=== PATIENT | female | born 1965 | race Caucasian/White ===

== ENCOUNTER 2017-07-06 09:27 | Emergency (ER) | payer MEDICARE, SELFPAY ==
[2017-07-06 09:29] VITALS: BP 162/92; PULSE 90; RESP 16; TEMP 36.8; O2SAT 100; BMI 30.4
[2017-07-06 10:08] LABS: Absolute Lymphocyte Count 1.74 X10^3/ul (0.83-4.51); Absolute Neutrophil Count 2.7 X10^3/uL (2.0-7.7); Basophil# 0.03 X10^3/uL; Basophil% 0.6 % (0-1); Eosinophil# 0.23 X10^3/uL; Eosinophils% 4.6 % (0-5); Hematocrit 32.4 % (37-47); Hemoglobin 10.5 g/dl (12.0-15.0); Lymphocyte # 1.74 X10^3/ul (4.0); Lymphocyte % 34.8 % (19-41); Mean Corp Hgb Conc 32.4 g/gl (32-36); Mean Corpuscular Hgb 29.8 pg (27.0-32.0); Mean Platelet Vol. 8.8 fl (6.2-12.0); Monocyte# 0.33 X10^3/uL; Monocyte% 6.6 % (0-10); Neutrophil # 2.67 X10^3/uL (2.7-7.7); Neutrophil % 53.4 % (47-70); Platelet Count 233 K/mm3 (150-450); RBC Distribution Width CV 13.3 % (11.6-14.6); RBC Distribution Width SD 44.4 fl (35.1-43.9); Red Blood Count 3.52 M/mm3 (4.2-5.4)
[2017-07-06 10:09] LABS: Anion Gap 7 (5-15); BUN 27 mg/dL (7-18); BUN/Creat Ratio 10.7 RATIO (10-20); Calcium,Total 8.7 mg/dL (8.5-10.1); Chloride 111 mmol/L (98-107); Creatinine, Serum 2.52 mg/dL (0.55-1.02); EST Glomerular Filtration Rate 21 mL/min (>60); Est Glom Filt Rate - Afr Amer 26 mL/min (>60); Estimated Creatinine Clearance 26.34 ml/min; Glucose 111 mg/dL (74-106); Potassium 4.6 mmol/L (3.5-5.1); Sodium Level 142 mmol/L (136-145)
--- NOTE | 2017-07-06 10:14 | US_ITS ---
STUDY: RENAL ULTRASOUND - COMPLETE REASON FOR EXAM: Female, 52 years old. Acute renal failure TECHNIQUE: Ultrasound evaluation of the kidneys was performed with real-time and static ramos-scale imaging. COMPARISON: None. FINDINGS: RIGHT KIDNEY: Normal location of the right kidney, which is normal in size. The right kidney measures 10.3 cm. There is a normal cortex of the right kidney. The renal cortex measures 1.3 cm. There is no right renal mass or cyst. There are no right renal calculi. There is no right hydronephrosis. DISTAL RIGHT URETER: There is non-visualization of the distal right ureter. There is no demonstrated right ureterovesical junction calculus. There is a visualized right ureteral jet. LEFT KIDNEY: Normal location of the left kidney, which is normal in size. The left kidney measures 10 cm. There is a normal cortex of the left kidney. The renal cortex measures 1.5 cm. There is no left renal mass or cyst. There are no left renal calculi. There is no left hydronephrosis. DISTAL LEFT URETER: There is non-visualization of the distal left ureter. There is no demonstrated left ureterovesical junction calculus. There is a visualized left ureteral jet. BLADDER: The distended urinary bladder has a volume of 393 ml. There is a normal wall thickness of the distended urinary bladder. There is no demonstrated mass within the urinary bladder. There are no demonstrated bladder calculi. Please note that the technologist describes weaker left ureteral jet than right. US/Kidney and Bladder IMPRESSION: Normal ultrasound of the kidneys and urinary bladder. Please note that the technologist describes weaker left ureteral jet than right. Electronically Signed: Eliud Hicks DO at 11:49 EDT Tel , Service support ,
[2017-07-06 10:16] LABS: POSITIVE COUNT NO; POSITIVE DIFFERENTIAL NO; POSITIVE MORPHOLOGY NO
--- NOTE | 2017-07-06 10:59 | ED.DCSUM_ITS ---
- ER Visit Summary Date of Service: 07/06/17 Chief Complaint: Abnormal labs History of Present Illness: The patient is a 52 F who has abnormal labs. She had blood work done last which showed kidney failure. Patient has a history of chronic kidney disease. She does not know what her baseline creatinine is. She has had vomiting and some slight leg cramps. She now has leg swelling which is what brought her in today. She states that they wanted to do an ultrasound of her kidneys as an outpatient but since her labs came back abnormal they sent her here. No fevers. Physical Examination: Vital signs reviewed. HEENT exam unremarkable. Heart is regular rate and rhythm without murmurs. Lungs are clear to auscultation. Abdomen is soft and nontender. Extremities reveal no edema. Skin exam normal. Neurologic exam normal. Test Results: Laboratory studies show a creatinine of 2.52. The patient's baseline is between 1.6 and 1.8. It was to the last time it was checked at this hospital in 2017 Emergency Department Course and Treatment: I received the lab studies from her PCP last week. This showed a creatinine of 2.2. Patient was given some normal saline. I did obtain bilateral kidney ultrasound and it shows no acute abnormalities. I spoke with her PCP, Dr. Archibald. He says he will see the patient is office and we both feel the patient does not require admission. Treatment Plan: [] Disposition: Discharge Impression: Chronic kidney disease This note was generated with [employer] dictation software. It may contain incorrect words, spelling, and punctuation that were not noted in review of the chart prior to signing ED Disposition - Plan for ED Patient: Chief Complaint: Abn Labs Referrals: Aki Archibald MD [Primary Care Provider] -
[2017-07-06 11:36] VITALS: BP 134/77; PULSE 84; RESP 16; O2SAT 98
[2017-07-06] MEDS: 0.9% Normal Saline 1,000 ML 999 ML IV (11:45)
--- NOTE | 2017-07-06 11:57 | NURSING ---
PAGED DR CHEATHAM
[2017-07-06 12:30] LABS: Bedside Glucose 48 mg/dL (70-110)
--- NOTE | 2017-07-06 12:31 | ED.DEP ---
ED Disposition - Plan for ED Patient: Disposition: Home or Assisted Living Chief Complaint: Abn Labs Instructions: ED Renal Failure Chronic Referrals: Aki Archibald MD [Primary Care Provider] -
[2017-07-06 12:38] VITALS: BP 134/82; PULSE 76; RESP 15; O2SAT 96
== END 2017-07-06 12:39 | disposition home or self-care (01) ==
PROVIDERS: Emergency Provider Emergency Medicine; Family Provider Family Medicine; PCP Family Medicine
DX: N18.9 Chronic kidney disease, unspecified (principal); I12.9 Hypertensive chronic kidney disease with stage 1 through stage 4 chronic kidney disease, or unspecified chronic kidney disease; E78.00 Pure hypercholesterolemia, unspecified; E11.9 Type 2 diabetes mellitus without complications; K21.9 Gastro-esophageal reflux disease without esophagitis; M79.7 Fibromyalgia; Z86.718 Personal history of other venous thrombosis and embolism
CPT/HCPCS: 76770; 80048; 82962; 85025; 99283; J7030

== ENCOUNTER 2017-11-12 17:01 | Emergency (ER) | payer MEDICARE, SELFPAY ==
[2017-11-12 17:02] VITALS: BP 170/86; PULSE 92; RESP 15; TEMP 36.4; O2SAT 99; BMI 30.4
--- NOTE | 2017-11-12 17:22 | ED.VISSUMM ---
- ER Visit Summary Date of Service: 11/12/17 Chief Complaint: Dysuria, left leg pain History of Present Illness: The patient is a 52 F who presents with dysuria as well as left leg pain. The leg pain started last night at work. She points to her proximal anterior tibial and knee area. Denies any falls or trauma. She tried Tylenol without any relief. She does have a history of a left leg fracture with surgery. She had dysuria that started yesterday. She also complains of bladder spasms. She states that she thinks it is a flare of her fibromyalgia. She tried methocarbamol at home without any relief Physical Examination: Vital signs reviewed. He is regular rate and rhythm. Lungs are clear. Abdomen is soft nontender. exam is deferred. She has tenderness on the left anterior and medial knee as well as popliteal pain. No swelling. Neurologic exam is normal. Test Results: Ultrasound of the left leg and x-ray of the left knee reveals no acute findings. Urinalysis reveals only 5-10 white blood cells with 0-5 epithelial cells Emergency Department Course and Treatment: The patient's urine will be cultured. She was given Tylenol here. Patient will be discharged with Pyridium per request. She will use ice and Tylenol at home. She will follow-up with her PCP Treatment Plan: [] Disposition: Discharge Impression: Dysuria, left leg pain This note was generated with [employer] dictation software. It may contain incorrect words, spelling, and punctuation that were not noted in review of the chart prior to signing ED Disposition - Plan for ED Patient: Chief Complaint: Complaint Referrals: Aki Archibald MD [Primary Care Provider] -
[2017-11-12 17:37] LABS: Bacteria 0 SEEN /hpf (None Seen); Mucous, Urine 0 SEEN /hpf (<or=2+)
--- NOTE | 2017-11-12 17:38 | US_ITS ---
STUDY: VENOUS DOPPLER ULTRASOUND - LEFT LOWER EXTREMITY REASON FOR EXAM: Female, 52 years old. Swelling TECHNIQUE: Ultrasound evaluation of the deep vein system to include waters-scale imaging and compression was performed. Waters-scale imaging and Doppler sonographic evaluation, including duplex spectral analysis and qualitative color flow sonography, was performed. COMPARISON: None. FINDINGS: Common Femoral Vein: Normal compression, spontaneity and augmentation. Normal color Doppler. Common Femoral Vein/Greater Saphenous Junction: Normal compression, spontaneity and augmentation. Normal color Doppler. Deep Femoral Vein: Normal compression, spontaneity and augmentation. Normal color Doppler. Femoral Proximal: Normal compression, spontaneity and augmentation. Normal color Doppler. Femoral Middle: Normal compression, spontaneity and augmentation. Normal color Doppler. Femoral Distal: Normal compression, spontaneity and augmentation. Normal color Doppler. Popliteal Vein: Normal compression, spontaneity and augmentation. Normal color Doppler. Posterior Tibial Vein: Normal compression, spontaneity and augmentation. Normal color Doppler. Peroneal Vein: Normal compression, spontaneity and augmentation. Normal color Doppler. US/Venous Duplex Imag/Limited/Uni IMPRESSION: Normal venous Doppler ultrasound of the lower extremity. Electronically Signed: Sha Rahman MD at 18:20 EDT , Service support ,
--- NOTE | 2017-11-12 17:40 | RAD_ITS ---
STUDY: X-RAY - LEFT KNEE REASON FOR EXAM: Female, 52 years old. Knee pain. TECHNIQUE: 3 view(s) of the knee. COMPARISON: None. FINDINGS: Normal visualized distal femur. Normal visualized proximal tibia and fibula. Normal proximal tibiofibular articulation. There is no demonstrated fracture. There is moderate degenerative arthrosis of the medial femorotibial compartment with moderate joint space narrowing. There is mild degenerative arthrosis of the lateral femorotibial compartment. There is moderate degenerative arthrosis of the patellofemoral articulation. There is no demonstrated joint effusion. Tibia is subluxed laterally relative to the femur. There are atherosclerotic calcifications. RAD/Knee 3 Views IMPRESSION: Degenerative changes. No acute fracture or dislocation. Electronically Signed: Jorgito Piper MD at 18:08 EDT , Service support ,
[2017-11-12 17:47] LABS: Color, Urine Yellow (Yellow); Glucose, Dipstick 100 mg/dl (Normal); Ketone-Dipstick Negative (Negative); Leukocyte Esterase-Dipstick 100 /ul (Negative); Nitrite-Dipstick Negative (Negative); Occult Blood-Urine 10 /ul (Negative); Protein-Dipstick 30 mg/dl (Negative); Specific Gravity, Urine 1.015 (1.002-1.030); Urine Bilirubin Dipstick Negative (Negative); Urine Clarity Sl. Cloudy (Clear); Urine Urobilinogen Normal (Normal)
[2017-11-12 17:58] LABS: Red Blood Cells-Urine 0-5 SEEN /hpf (0-5); Squamous Epithelial Cells - UA 0-5 SEEN /hpf (5-10); White Blood Cells 5-10 SEEN /hpf (0-5)
[2017-11-12] MEDS: Acetaminophen 500 MG Tablet 1000 MG PO (18:18)
--- NOTE | 2017-11-12 18:28 | ED.DEP ---
ED Disposition - Plan for ED Patient: Disposition: Home or Assisted Living Chief Complaint: Complaint Instructions: ED Dysuria Uncertain Cause Prescriptions: Phenazopyridine HCl [Pyridium] 200 mg PO BID PRN PRN #10 tab PRN Reason: Pain Referrals: Aki Archibald MD [Primary Care Provider] -
[2017-11-12 18:31] VITALS: BP 176/91; PULSE 82; RESP 17; O2SAT 100
== END 2017-11-12 18:35 | disposition home or self-care (01) ==
PROVIDERS: Emergency Provider Emergency Medicine; Family Provider Family Medicine; PCP Family Medicine
DX: M79.605 Pain in left leg (principal); R30.0 Dysuria; R11.0 Nausea; M79.7 Fibromyalgia; Z79.82 Long term (current) use of aspirin; Z79.899 Other long term (current) drug therapy; Z72.0 Tobacco use
CPT/HCPCS: 73562; 81001; 87086; 87088; 93971; 99283

== ENCOUNTER 2018-03-26 17:34 | Emergency (ER) | payer SELFPAY ==
[2018-03-26 17:35] VITALS: BP 147/70; PULSE 86; RESP 15; TEMP 36.4; O2SAT 100; BMI 32.5
--- NOTE | 2018-03-26 17:44 | RAD_ITS ---
STUDY: X-RAY - RIGHT KNEE REASON FOR EXAM: Female, 52 years old. Fall TECHNIQUE: 5 view(s) of the knee. COMPARISON: None. FINDINGS: There is no evidence of fracture or dislocation. There are mild degenerative changes. There is a small joint effusion. There are no radiodense foreign bodies. RAD/Knee 4 or More Views IMPRESSION: No fracture or dislocation. Mild degenerative changes. Small joint effusion. Electronically Signed: Deshawn Galeana, at 18:25 EST Tel , Service support ,
--- NOTE | 2018-03-26 17:51 | ED.VISSUMM ---
- ER Visit Summary Date of Service: 03/26/18 Chief Complaint: Fall History of Present Illness: The patient is a 52 F presents to the emergency department after mechanical fall. Patient states she got up this morning. She was having some spasm in her legs but she states is not atypical for her. She states her legs gave out. She fell, landing on her right knee and right hand. She did not strike her head. She denies loss of consciousness. She was able to ambulate after and went to work. She states at work, the pain was getting worse. She does have a history of fibromyalgia. She normally ambulates without assistance. Physical Examination: Examination is relatively unremarkable. Patient has a small abrasion on the hand. Examination of the knee shows extension preserved, no erythema or edema. Small contusion. No gross laxity. Pulses normal. Compartments soft. Test Results: [] Emergency Department Course and Treatment: Plain films were obtained of the patient's knee in the hand. There is no evidence of acute fracture dislocation. Her extension is preserved. At this time, I do feel this is likely secondary to contusion. Patient was placed in an Ronald wrap. She will continue ice and Tylenol. She declined crutches. She states she does have a walker at home. She was counseled on concerning symptoms and reasons to return. She will be discharged home. Treatment Plan: [] Disposition: Discharge Impression: 1. Right knee contusion status post fall 2. Right hand abrasion status post fall This note was generated with [employer] dictation software. It may contain incorrect words, spelling, and punctuation that were not noted in review of the chart prior to signing ED Disposition - Plan for ED Patient: Chief Complaint: Lower Extremity Injury Instructions: ED Sprain Knee Referrals: Aki Archibald MD [Primary Care Provider] -
--- NOTE | 2018-03-26 17:55 | RAD_ITS ---
STUDY: X-RAY - RIGHT HAND REASON FOR EXAM: Female, 52 years old. Fall. Fifth digit pain. TECHNIQUE: 3 view(s) of the hand. COMPARISON: None. FINDINGS: There is no evidence of fracture or dislocation. There are no significant degenerative changes. There are no radiodense foreign bodies. RAD/Hand Min 3 Views IMPRESSION: No fracture or dislocation. Electronically Signed: Deshawn Galeana, at 18:23 EST Tel , Service support ,
[2018-03-26] MEDS: Acetaminophen 500 MG Tablet 1000 MG PO (18:15)
== END 2018-03-26 19:07 | disposition home or self-care (01) ==
LOC: ED 18:54
PROVIDERS: Emergency Provider Emergency Medicine; Family Provider Family Medicine; PCP Family Medicine
DX: S80.01XA Contusion of right knee, initial encounter (principal); S60.511A Abrasion of right hand, initial encounter; W01.0XXA Fall on same level from slipping, tripping and stumbling without subsequent striking against object, initial encounter; Y93.9 Activity, unspecified; Y92.89 Other specified places as the place of occurrence of the external cause; Y99.9 Unspecified external cause status; M79.7 Fibromyalgia
CPT/HCPCS: 73130; 73564; 99283

== ENCOUNTER → 2018-07-05 15:15 | Outpatient (CLI) | payer SELFPAY ==
--- NOTE | 2018-07-05 15:21 | VDUE_ITS ---
Reason For Study: Pain LUE Left Proximal Left jugular vein is spontaneous, widely patent, phasic, with no intraluminal echogenicity noted. Left subclavian vein is spontaneous, widely patent, phasic, with no intraluminal echogenicity noted. Left Arm Left axillary vein is spontaneous, patent, phasic, competent, compressible and demonstrates augmentation. Left brachial vein is compressible. Left cephalic vein is compressible. Left basilic vein is compressible. Left Lower Arm Left radial vein is compressible. Left ulnar vein is compressible. Interpretation Summary Deep veins of the left upper extremity are patent and compressible segmentally. There is no evidence of deep vein thrombosis. The superficial veins of the left upper extremity, the basilic and cephalic veins, are patent and compressible. There is no evidence of left upper extremity superficial thrombophlebitis involving the veins imaged. Ordering Physician: Aki Archibald Referring Physician: Aki Archibald Performed By: Jacy Tim RVT ?
--- NOTE | 2018-07-05 15:22 | VDLE_ITS ---
Reason For Study: Pain LLE RIGHT LEFT CFV is compressible, spontaneous, phasic, GSV is normal. competent and demonstrates normal CFV is compressible, spontaneous, phasic, augmentation. competent, and demonstrates normal Procedure augmentation. Exam performed in department. FV is compressible, spontaneous, phasic, A preliminary report was called and/or faxed competent and demonstrates normal to [place]. augmentation. POP V is compressible, spontaneous, phasic, competent and demonstrates normal augmentation. T/P Trunk is compressible. PTV is compressible. LT PerV is compressible. Interpretation Summary Deep veins of the left lower extremity are patent and compressible segmentally. There is no evidence of left lower extremity deep vein thrombosis. Valvular competence appears intact within the proximal deep venous system on the left . The left greater saphenous vein appears patent and compressible segmentally. Ordering Physician: Aki Archibald Referring Physician: Aki Archibald Performed By: Jacy Tim RVT
== END ==
PROVIDERS: Family Provider Family Medicine; PCP Family Medicine; Referring Provider Family Medicine; Visit Provider Family Medicine
DX: D68.59 Other primary thrombophilia (principal); M79.605 Pain in left leg; Z86.718 Personal history of other venous thrombosis and embolism
CPT/HCPCS: 93971

== ENCOUNTER 2019-07-04 19:51 | Emergency (ER) | payer OTHER, SELFPAY ==
[2019-07-04 19:52] VITALS: BP 175/91; PULSE 79; RESP 18; TEMP 36.9; O2SAT 96; BMI 29.5
[2019-07-04] MEDS: traMADol 50 MG Tablet PO (20:20)
[2019-07-04 20:27] LABS: Bacteria 0 SEEN /hpf (None Seen); Mucous, Urine 0 SEEN /hpf (<or=2+); Red Blood Cells-Urine 0 SEEN /hpf (0-5)
[2019-07-04 20:28] LABS: Glucose, Dipstick 250 mg/dl (Normal); Ketone-Dipstick Negative (Negative); Leukocyte Esterase-Dipstick 500 /ul (Negative); Nitrite-Dipstick Negative (Negative); Occult Blood-Urine Negative /ul (Negative); Protein-Dipstick 30 mg/dl (Negative); Specific Gravity, Urine 1.015 (1.002-1.030); Urine Bilirubin Dipstick Negative (Negative); Urine Urobilinogen Normal (Normal)
[2019-07-04 20:34] LABS: Color, Urine Yellow (Yellow); Urine Clarity Sl Cldy (Clear)
[2019-07-04 20:37] LABS: Amorphous Sediment 1+ URATE; Squamous Epithelial Cells - UA 0-5 SEEN /hpf (5-10); White Blood Cells 5-10 SEEN /hpf (0-5)
--- NOTE | 2019-07-04 21:05 | RAD_ITS ---
STUDY: X-RAY - UNILATERAL RIBS ( LEFT ) REASON FOR EXAM: Female, 54 years old. LOWER RIB PAIN AFTER FALL. TECHNIQUE: 4 view(s) of the ribs. COMPARISON: None. FINDINGS: Normal visualized ribs without a demonstrated fracture. The visualized lung is clear and expanded. Surgical clips are seen in left upper quadrant of the abdomen RAD/Ribs Unil 2V No CXR IMPRESSION: Normal x-ray examination of the ribs. Electronically Signed: Sha Rahman MD at 21:29 EDT , Service support ,
--- NOTE | 2019-07-04 21:24 | ED.DCSUM_ITS ---
History of Present Illness Chief Complaint: Back Informant: Patient Onset: Today - JPTA Context: Sudden Onset Injury: Direct Trauma Timing: Continuous Quality: Aching Location: Lumbar Current Severity: Severe Maximum Severity: Severe Worsened by: improves with: Movement, Bending Relieved by: Remaining Still Associated Symptoms: - - No radiation into lower extremity. No bowel or bladder dysfunction. No numbness or tingling. Has not yet urinated since this occurred. 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 She states since I have stage IV kidney failure, I decided to come and have it checked out. She has not urinated since this occurred, she does not usually have hematuria and she does urinate. She is not on dialysis. She has no abdominal pain, neurologic symptoms in her lower extremities or saddle anesthesia, or pain in the midline or the right side. - Past Medical History (1) Kidney disease, chronic, stage IV (GFR 15-29 ml/min) Status: Chronic (2) Benign essential hypertension Status: Chronic (3) History of COPD Status: Chronic (4) History of asthma Status: Chronic (5) History of bipolar disorder Status: Chronic (6) History of diabetes mellitus, type II Status: Chronic Past Medical History - Allergies and Home Meds Allergies/Adverse Reactions: Allergies Penicillins Allergy (Verified 07/04/19 19:52) Anaphylaxis tetracycline [Tetracycline] Allergy (Verified 07/04/19 19:52) Anaphylaxis codeine Adverse Reaction (Verified 07/04/19 19:52) Abd cramps/diarrhea diphenhydramine HCl [From Benadryl] Adverse Reaction (Verified 07/04/19 19:52) Upset Stomach hydrocodone bitartrate [From Vicodin] Adverse Reaction (Verified 07/04/19 19:52) Abd cramps/diarrhea NSAIDS (Non-Steroidal Anti-Inflamma Adverse Reaction (Verified 07/04/19 19:52) Unknown Primary Care Physician: Aki Archibald MD [Primary Care Provider] - Surgical History: appendectomy Smoking Status: Former smoker Review of Systems Gastrointestinal: Denies: Abdominal pain, Nausea, Vomiting Musculoskeletal: Reports: Back pain. Denies: Swelling, Extremity Pain Skin: Denies: Rash, Wounds Neurological: Denies: Headache, Weakness, Parasthesia, Numbness Physical Exam Vital Signs/Narrative: Vital Signs Temp Pulse Resp BP Pulse Ox 07/04/19 19:52 98.5 F 79 18 175/91 H 96 Inital Vital Signs reviewed: Yes General: Well nourished, Well developed, - - Well-appearing, no distress. Conversive without distress or apparent pain. Head: Normocephalic, Atraumatic Back: Normal Inspection - No objective signs of trauma, Paraspinal Tenderness - Throughout left lower thoracic and upper lumbar area, including the lower ribs. No crepitance. No ecchymosis. No laceration., - - Can bend forward and twist w ithout any apparent difficulty. Negative for: Spinal tenderness - Throughout the midline, nontender Extremeties: Nontender, No edema Skin: Normal color, No rash, No Trauma Neuro: Alert, Oriented, Normal Strength, Normal Sensation, Normal Gait Psychological: Normal affect, Normal Mood Diagnostic/Tx/Re-eval Laboratory Tests 07/04/19 Range/Units 20:23 Urine Color Yellow (Yellow) Urine Clarity Sl Cldy (Clear) Urine pH 6.0 (5.0 - 8.0) Ur Specific [place] 1.015 (1.002-1.030) Urine Protein 30 H (Negative) mg/dl Urine Glucose (UA) 250 H (Normal) mg/dl Urine Ketones Negative (Negative) mg/dl Urine Occult Blood Negative (Negative) /ul Urine Nitrite Negative (Negative) Urine Bilirubin Negative (Negative) mg/dL Urine Urobilinogen Normal (Normal) mg/dl Ur Leukocyte Esterase 500 H (Negative) /ul Urine RBC 0 SEEN (0-5) /hpf Urine WBC 5-10 SEEN (0-5) /hpf Ur Squamous Epith Cells 0-5 SEEN (5-10) /hpf Amorphous Sediment 1+ URATE Urine Bacteria 0 SEEN (None Seen) /hpf Urine Mucus 0 SEEN (<or=2+) /hpf Clinical Impression(s) from Imaging Studies Ribs X-Ray 07/04/19 21:05 IMPRESSION: Normal x-ray examination of the ribs. Electronically Signed: Sha Rahman MD at 21:29 EDT , Service support , - Medical Decision Making X-rays of the ribs are unremarkable and she has no hematuria on the urinalysis. Given that, I reassured the patient that she is very unlikely to have a renal injury. She was given a tramadol, she continued to appear very comfortable and advised to follow-up with [facility] as needed. Her urinalysis did show some signs of infection. She states she recently finished Macrobid. She does not have symptoms of pyelonephritis right now. I sent her urine for culture, she states she would be happy to follow-up with her PCP regarding this. ED Disposition - Plan for ED Patient: Disposition: Home or Assisted Living Diagnosis: Contusion of lower back Instructions: ED Contusion Back Referrals: [facility] [GROUP OF PHYSICIANS] - As Needed (For any back pain issues related to what you sustained tonight) Aki Archibald MD [Primary Care Provider] - (Regarding your abnormal urinalysis)
== END 2019-07-04 21:46 | disposition home or self-care (01) ==
PROVIDERS: Emergency Provider Emergency Medicine; PCP Family Medicine
DX: S30.0XXA Contusion of lower back and pelvis, initial encounter (principal); I12.9 Hypertensive chronic kidney disease with stage 1 through stage 4 chronic kidney disease, or unspecified chronic kidney disease; E11.22 Type 2 diabetes mellitus with diabetic chronic kidney disease; N18.4 Chronic kidney disease, stage 4 (severe); J44.9 Chronic obstructive pulmonary disease, unspecified; Z79.4 Long term (current) use of insulin; Z79.82 Long term (current) use of aspirin; Z79.899 Other long term (current) drug therapy; Z87.891 Personal history of nicotine dependence; W22.09XA Striking against other stationary object, initial encounter; Y93.89 Activity, other specified; Y92.121 Bathroom in nursing home as the place of occurrence of the external cause; Y99.0 Civilian activity done for income or pay
CPT/HCPCS: 71100; 81001; 87086; 87088; 99283

== ENCOUNTER 2019-10-02 17:27 | Emergency (ER) | payer SELFPAY ==
[2019-10-02 17:28] VITALS: BP 150/88; PULSE 102; RESP 16; TEMP 36.4
[2019-10-02 17:29] VITALS: BP 150/88; PULSE 102; RESP 16; TEMP 36.4; BMI 30.7
--- NOTE | 2019-10-02 17:44 | ED.DCSUM_ITS ---
- ER Visit Summary Date of Service: 10/02/19 Chief Complaint: Nausea, vomiting diarrhea with upper abdominal pain History of Present Illness: The patient is a 54 F 3 of insulin-dependent diabetes, diverticulosis, renal insufficiency stage IV and fibromyalgia. Patient states she has had a prior appendectomy and cholecystectomy. States that about 3 hours ago today started having nausea, vomiting diarrhea. No melena hematemesis. No fever chills. No dysuria. Says she is only thrown up about 2 times. But she said 78 episodes of watery to loose diarrhea. No melena. Mild epigastric discomfort. No chest pain. No shortness of breath. Prior episodes like this before. Physical Examination: Middle-aged female no acute distress vital signs stable afebrile. HEENT exam unremarkable moist with membranes. Neck nontender no lymphadenopathy. Lungs clear to auscultation bilaterally. Heart regular rhythm rate about 100 no murmur. Abdomen soft nontender, nondistended normal bowel sounds no peritoneal signs. Extremities moves all 4. Calves nontender. No edema no cords. Neurologically she is awake alert with no focal motor deficits. Normal 5 5 over short and damage clerk strength. Dorsi plantarflexion intact. Back nontender. Test Results: CBC shows a white count of 6. Hemoglobin 11 her baseline is 1011. She is chronically anemic. Electrolytes unremarkable gap of 7. Glucose 228 patient is diabetic. Creatinine 2.4 which is her baseline chronic renal insufficiency. Repeat exam at 8:11 PM patient is doing well. Abdomen is benign. She is no longer vomiting and drinking water while in the room. She is comfortable being discharged has both Zofran and Phenergan at home for nausea. Emergency Department Course and Treatment: Treated with IV fluids, Zofran and reassess. Labs are being obtained. Treatment Plan: Use your home nausea medications. [place] diet increase slowly as tolerated. Return if worse. Follow-up with your doctor as needed. Disposition: discharge Impression: Acute nausea, vomiting and diarrhea Acute hyperglycemia. Chronic renal insufficiency History of insulin-dependent diabetes This note was generated with [employer] dictation software. It may contain incorrect words, spelling, and punctuation that were not noted in review of the chart prior to signing ED Disposition - Plan for ED Patient: Referrals: Aki Archibald MD [Primary Care Provider] -
[2019-10-02] MEDS: 0.9% Normal Saline 1,000 ML 1000 ML IV (17:53)
[2019-10-02] MEDS: Ondansetron 4 MG/2 ML Vial IV (17:54)
[2019-10-02 18:14] LABS: Absolute Lymphocyte Count 2.13 X10^3/uL (0.83-4.51); Basophil# 0.06 X10^3/uL; Basophil% 0.9 % (0-1); Eosinophils% 2.9 % (0-5); Hematocrit 36.2 % (37-47); Hemoglobin 11.4 g/dL (12.0-15.0); Lymphocyte # 2.13 X10^3/ul (4.0); Lymphocyte % 30.8 % (19-41); Mean Corp Hgb Conc 31.5 g/dL (32-36); Mean Corpuscular Hgb 30.7 pg (27.0-32.0); Mean Corpuscular Volume 97.6 fL (81-99); Mean Platelet Vol. 9.5 fl (6.2-12.0); Monocyte# 0.53 X10^3/uL; Monocyte% 7.7 % (0-10); NRBC Flagged by Analyzer 0 % (0-5); Neutrophil # 3.98 X10^3/uL (2.7-7.7); Neutrophil % 57.6 % (47-70); Platelet Count 223 K/mm3 (150-450); RBC Distribution Width CV 12.1 % (11.6-14.6); RBC Distribution Width SD 43.5 fl (35.1-43.9); Red Blood Count 3.71 M/mm3 (4.2-5.4); White Blood Count 6.9 K/mm3 (4.4-11.0)
[2019-10-02 18:18] LABS: AST(SGOT) 12 U/L (15-37); Alanine Aminotransfer ALT/SGPT 23 U/L (13-56); Albumin, Serum 3.2 g/dL (3.2-5.0); Alkaline Phosphatase 92 U/L (45-117); Anion Gap 7 (5-15); BUN 34 mg/dL (7-18); BUN/Creat Ratio 14.1 RATIO (10-20); Calcium,Total 7.9 mg/dL (8.5-10.1); Chloride 110 mmol/L (98-107); Creatinine, Serum 2.41 mg/dL (0.55-1.02); EST Glomerular Filtration Rate 22 mL/min (>60); Est Glom Filt Rate - Afr Amer 27 mL/min (>60); Estimated Creatinine Clearance 26.92 ml/min; Globulin 3.3 g/dL (2.2-4.2); Glucose 228 mg/dL (74-106); Lipase 254 U/L (73-393); Protein, Total 6.5 g/dL (6.4-8.2); Sodium Level 139 mmol/L (136-145)
[2019-10-02 20:13] VITALS: BP 178/84; PULSE 84; RESP 18; O2SAT 98
--- NOTE | 2019-10-02 20:14 | ED.DEP ---
ED Disposition - Plan for ED Patient: Disposition: Home or Assisted Living Instructions: ED Viral Gastroenteritis Referrals: Aki Archibald MD [Primary Care Provider] - 3-5 Days if not improving Additional Instructions: Plenty of fluids and rest. Zofran and Phenergan at home as needed for nausea. Follow-up with your doctor if not improving return emergency department if feeling worse.
[2019-10-02 20:38] VITALS: BP 177/79; PULSE 76; RESP 14; O2SAT 98
== END 2019-10-02 20:40 | disposition home or self-care (01) ==
PROVIDERS: Emergency Provider Emergency Medicine; PCP Family Medicine
DX: R11.2 Nausea with vomiting, unspecified (principal); E11.65 Type 2 diabetes mellitus with hyperglycemia; E11.22 Type 2 diabetes mellitus with diabetic chronic kidney disease; N18.4 Chronic kidney disease, stage 4 (severe); Z79.4 Long term (current) use of insulin
CPT/HCPCS: 80053; 83690; 85025; 96361; 96374; 99283; J7030; A4216; J2405

== ENCOUNTER 2019-12-06 17:05 | Emergency (ER) | payer SELFPAY ==
[2019-12-06] VITALS (8 sets, daily range): BP systolic 151–187; BP diastolic 87–105; PULSE 88–106; RESP 14–18; TEMP 36.3; O2SAT 97–99; BMI 29.8
--- NOTE | 2019-12-06 17:14 | EKG12_ITS ---
Test Reason : NEURO Blood Pressure : / mmHG Vent. Rate : 098 BPM Atrial Rate : 098 BPM P-R Int : 146 ms QRS Dur : 080 ms QT Int : 338 ms P-R-T Axes : 038 005 075 degrees QTc Int : 431 ms Normal sinus rhythm Nonspecific ST abnormality Abnormal ECG Confirmed by RENATA BERGMAN, VINOD ([id number]), senior editor TULIO FANG ([id number]) on 12/07/2019 9:46:30 AM Referred By: CL Confirmed By:VINOD YANEZ MD
--- NOTE | 2019-12-06 17:14 | CT_ITS ---
We are attempting to reach an attending provider to discuss findings. An addendum with communication details will be sent when the communication is complete. STUDY: CT BRAIN WITHOUT CONTRAST REASON FOR EXAM: Female, 54 years old. BLURRY VISION, GRIFFITH RADIATION DOSAGE (If Supplied By Facility): CTDIvol = ( 44.99 ) mGy, DLP = ( 745.49 ) mGycm TECHNIQUE: Transaxial CT imaging of the brain was performed without administration of intravenous contrast material. Individualized dose optimization techniques were used for this CT. COMPARISON: To 1114 FINDINGS: Normal soft tissue structures. Normal calvarium. Normal size ventricles and extra-axial spaces for the patient''s age. Normal white matter tracts of the cerebral hemispheres. Normal basal ganglia and thalami. Normal brainstem. Normal cerebellum. There is no intracranial hemorrhage. There are no findings of an acute ischemic infarction. Mucous retention cyst in the floor the right x-ray sinus consistent with chronic sinusitis. CT/Brain/Head without Contrast IMPRESSION: Normal unenhanced CT scan of the brain. Electronically Signed: Pawan Peña MD at 17:33 EDT Tel , Service support ,
--- NOTE | 2019-12-06 17:20 | CT_ITS ---
We are attempting to reach an attending provider to discuss findings. An addendum with communication details will be sent when the communication is complete. STUDY: CTA HEAD AND NECK WITH CONTRAST REASON FOR EXAM: Female, 54 years old. Headache. Stroke. RADIATION DOSAGE (If Supplied By Facility): CTDIvol = ( 18.03 ) mGy, DLP = ( 766.48 ) mGycm TECHNIQUE: CT angiography was performed with a multi-detector CT scanner. Data acquisition was obtained from the skull base through the vertex following intravenous administration of IV 100mL Isovue-370. MIP images were reconstructed from the axial data set. Post-processing of the angiographic images was performed, with multiplanar reformation and 3D reconstruction. Individualized dose optimization techniques were used for this CT. COMPARISON: No relevant priors. FINDINGS: Normal bilateral petrous carotid arteries. Normal right cavernous carotid artery with a normal supraclinoid bifurcation. Normal left cavernous carotid artery with a normal supraclinoid bifurcation. Normal right A1 segments of the anterior cerebral artery. Normal left A1 segments of the anterior cerebral artery. Normal intact anterior communicating artery (ACOM). Normal bilateral A2 segments of the anterior cerebral arteries. Normal right M1 and M2 segments of the middle cerebral arteries, with a normal M1 bifurcation. Normal left M1 and M2 segments of the middle cerebral arteries, with a normal M1 bifurcation. Normal right posterior communicating artery (PCOM). Normal left posterior communicating artery (PCOM). Normal bilateral vertebral arteries. Normal basilar artery with a normal basilar bifurcation. The visualized bilateral superior cerebellar (SCA) arteries are normal. Normal bilateral P1, P2 and visualized P3 segments of the posterior cerebral arteries. There is no demonstrated aneurysm of the [place]. There is no demonstrated abnormality of the visualized brain. AORTIC ARCH: Normal visualized aortic arch. Normal origins of the brachiocephalic, left common carotid, and left subclavian arteries. RIGHT CAROTID ARTERIES: Normal right common carotid artery (CCA). Normal right common carotid bulb. Normal origin of the right internal carotid (ICA) artery without a hemodynamically significant stenosis. Normal visualized cervical portion of the right internal carotid artery. Normal origin of the right external carotid artery (ECA). LEFT CAROTID ARTERIES: Normal left common carotid artery (CCA). Normal left common carotid bulb. Normal origin of the left internal carotid (ICA) artery without a hemodynamically significant stenosis. Normal visualized cervical portion of the left internal carotid artery. Normal origin of the left external carotid artery (ECA). VERTEBRAL ARTERIES: Normal bilateral vertebral arteries. There are degenerative changes of the cervical spine. Normal lung apices and thyroid. CT/CTA Head AND Neck W/ Contrast IMPRESSION: Normal CTA Head and neck with contrast. Electronically Signed: Girish Stephen DO at 17:47 EDT Tel [phone], Service support ,
[2019-12-06 17:26] LABS: Bedside Glucose > 500 mg/dL (70-110)
--- NOTE | 2019-12-06 17:40 | CM.ED ---
SOCIAL WORK Responded to Stroke Alert. Patient in room with nursing and [facility]. No family present at this time. This worker to remain available for needs. Wenceslao Hodge, PROGRESSIVE DIE MAKER, ELECTRONICS ENGINEERING TECHNICIAN
[2019-12-06 17:48] LABS: Absolute Lymphocyte Count 1.54 X10^3/uL (0.83-4.51); Absolute Neutrophil Count 3.7 X10^3/uL (2.0-7.7); Basophil# 0.03 X10^3/uL; Basophil% 0.5 % (0-1); Eosinophil# 0.09 X10^3/uL; Eosinophils% 1.6 % (0-5); Hematocrit 35.7 % (37-47); Hemoglobin 11.5 g/dL (12.0-15.0); Lymphocyte # 1.54 X10^3/ul (4.0); Lymphocyte % 26.8 % (19-41); Mean Corp Hgb Conc 32.2 g/dL (32-36); Mean Corpuscular Hgb 29.3 pg (27.0-32.0); Mean Corpuscular Volume 91.1 fL (81-99); Mean Platelet Vol. 9.7 fl (6.2-12.0); Monocyte# 0.37 X10^3/uL; Monocyte% 6.4 % (0-10); NRBC Flagged by Analyzer 0 % (0-5); Neutrophil # 3.68 X10^3/uL (2.7-7.7); Neutrophil % 64.2 % (47-70); Platelet Count 215 K/mm3 (150-450); RBC Distribution Width CV 12.2 % (11.6-14.6); RBC Distribution Width SD 40.4 fl (35.1-43.9); Red Blood Count 3.92 M/mm3 (4.2-5.4); White Blood Count 5.7 K/mm3 (4.4-11.0)
--- NOTE | 2019-12-06 17:55 | RAD_ITS ---
STUDY: X-RAY CHEST REASON FOR EXAM: Female, 54 years old. Df for one week. Vision changes. TECHNIQUE: Single AP portable view of the chest. COMPARISON: 09/25/2016. FINDINGS: The lungs are clear and expanded. There is no demonstrated pleural abnormality. Normal size heart. Normal mediastinum and stone. Normal visualized pulmonary arteries. Normal visualized aortic arch and descending thoracic aorta. The thoracic spine is obscured by the mediastinum. There is degenerative osteoarthritis of the bilateral shoulders. There is no demonstrated abnormality of the visualized soft tissue structures of the upper abdomen. RAD/Chest 1 View IMPRESSION: No acute cardiopulmonary disease or major interval change. Electronically Signed: Girish Stephen DO at 18:35 EDT Tel [phone], Service support ,
[2019-12-06 18:08] LABS: International Normalized Ratio 0.9; Prothrombin Time (Protime)PT. 11.4 SECONDS (11.7-14.9)
[2019-12-06 18:09] LABS: Partial Thromboplast Time 24.7 Seconds (24.1-36.2)
[2019-12-06 18:12] LABS: Anion Gap 6 (5-15); BUN 26 mg/dL (7-18); Calcium,Total 8.7 mg/dL (8.5-10.1); Chloride 100 mmol/L (98-107); Creatinine, Serum 2.61 mg/dL (0.55-1.02); EST Glomerular Filtration Rate 20 mL/min (>60); Est Glom Filt Rate - Afr Amer 25 mL/min (>60); Estimated Creatinine Clearance 24.86 ml/min; Glucose 526 mg/dL (74-106); Sodium Level 131 mmol/L (136-145)
--- NOTE | 2019-12-06 18:29 | NURSING ---
per dr catracho mccabe [facility].
[2019-12-06] MEDS: Acetaminophen 500 MG Tablet 1000 MG PO (18:37)
[2019-12-06] MEDS: 0.9% Normal Saline 1,000 ML 999 ML IV (18:38)
[2019-12-06] MEDS: Ondansetron 4 MG/2 ML Vial IV (18:38)
--- NOTE | 2019-12-06 21:10 | ED.DCSUM_ITS ---
History of Present Illness Chief Complaint: Headache Informant: Patient Narrative: 54-year-old female with past medical history of hypertension and diabetes presents with blurry vision. Patient had blurry vision chronically but it became worse approximately 1 hour ago. States it is right-sided. States that she has had a headache for over 1 week. States it is aching and intermittent. Not maximal in onset. Denies any fever, chills, neck pain, head injury. Admits to nausea without vomiting. Patient is not on anticoagulation. Past Medical History - Allergies and Home Meds Allergies/Adverse Reactions: Allergies Penicillins Allergy (Verified 12/06/19 17:06) Anaphylaxis tetracycline [Tetracycline] Allergy (Verified 12/06/19 17:06) Anaphylaxis codeine Adverse Reaction (Verified 12/06/19 17:06) Abd cramps/diarrhea diphenhydramine HCl [From Benadryl] Adverse Reaction (Verified 12/06/19 17:06) Upset Stomach hydrocodone bitartrate [From Vicodin] Adverse Reaction (Verified 12/06/19 17:06) Abd cramps/diarrhea NSAIDS (Non-Steroidal Anti-Inflamma Adverse Reaction (Verified 12/06/19 17:06) Unknown Primary Care Physician: Aki Archibald MD [Primary Care Provider] - Prior records reviewed: Yes Past Medical History: - - HTN, DMII Surgical History: appendectomy Lives: With Family Smoking Status: Former smoker Alcohol: None Drugs: None Review of Systems General: Denies: Chills, Fever, Sweats Eyes: Denies: Visual changes - bilaterally, Diplopia ENT: Denies: Rhinorrhea, Sore throat Cardiovascular: Denies: Chest pain, Palpitations Respiratory: Denies: Dyspnea, Cough, Dyspnea on exertion Gastrointestinal: Denies: Abdominal pain, Nausea, Vomiting, Diarrhea, Melena, Hematochezia Genitourinary: Denies: Dysuria, Hematuria, Frequency Musculoskeletal: Denies: Back pain, Extremity Pain Skin: Denies: Rash, Wounds Neurological: Denies: Headache, Weakness, Numbness Physical Exam Vital Signs/Narrative: Vital Signs Temp Pulse Resp BP Pulse Ox 12/06/19 21:00 88 18 173/99 H 97 12/06/19 19:05 89 14 178/105 H 98 12/06/19 18:14 93 18 173/88 H 12/06/19 17:52 100 18 187/87 H 99 10/06/20 17:51 99 12/06/19 17:33 97.4 F L 106 H 16 151/99 H 98 Inital Vital Signs reviewed: Yes General: Well nourished, Well developed, No Acute Distress Head: Normocephalic, Atraumatic Eyes: Perrl, EOMI ENT: Moist mucous membranes, No rhinorrhea Neck: Supple, Nontender Cardiovascular: Regular rate, Regular rhythm, No murmurs Respiratory: No distress, CTA bilaterally, Chest nontender Abdomen: Soft, Nontender, Nondistended, Normal bowel sounds Back: Nontender, Normal Inspection Extremities: Nontender, No edema Skin: Normal color, No rash Neurological: Alert, Oriented x3, Cranial nerves II-XII grossly intact, Normal Strength, Normal Sensation, - - NIH 0. Psychological: Normal affect, Normal Mood Diagnostic/Tx/Re-eval Chest X-Ray - ED: 1 View, No Acute Disease Clinical Impression(s) from Imaging Studies Brain CT 12/06/19 17:14 IMPRESSION: Normal unenhanced CT scan of the brain. Electronically Signed: Pawan Peña MD at 17:33 EDT Tel , Service support , ADDENDUM: 12/06/19 1740 IMPRESSION: Normal unenhanced CT scan of the brain. N.B. : The above information has been verbally conveyed by Pawan Peña MD to Mahesh Lr MD, on 12/06/2019 17:33:53 (ET). Electronically Signed: Pawan Peña MD at 17:33 EDT Tel , Service support , Head/Neck CTA 12/06/19 17:20 IMPRESSION: Normal CTA Head and neck with contrast. Electronically Signed: Girish Stephen DO at 17:47 EDT Tel [phone], Service support , ADDENDUM: 12/06/19 1804 IMPRESSION: Normal CTA Head and neck with contrast. N.B. : The above information has been verbally conveyed by Girish Stephen DO to Mahesh thomas MD, on 12/06/2019 17:57:28 (ET). Electronically Signed: Girish Stephen DO at 17:47 EDT Tel [phone], Service support , ADDENDUM: 12/06/19 1809 IMPRESSION: 1. Bilateral hemodynamically insignificant carotid plaque by NASCET criteria. 2. Normal [place] without significant intracranial arterial abnormality. Electronically Signed: Girish Stephen DO at 18:02 EDT Tel [phone], Service support , N.B. : The above information has been verbally conveyed by Girish Stephen DO to Mahesh thomas MD, on 12/06/2019 17:57:28 (ET). Chest X-Ray 12/06/19 17:55 IMPRESSION: No acute cardiopulmonary disease or major interval change. Electronically Signed: Girish Stephen DO at 18:35 EDT Tel [phone], Service support , Laboratory Data 12/06/19 12/06/19 12/06/19 17:21 17:30 17:30 WBC 5.7 RBC 3.92 L Hgb 11.5 L Hct 35.7 L MCV 91.1 MCH 29.3 MCHC 32.2 RDW Std Deviation 40.4 RDW Coeff of Ben 12.2 Plt Count 215 MPV 9.7 Immature Gran % (Auto) 0.500 Neut % (Auto) 64.2 Lymph % (Auto) 26.8 [place] % (Auto) 6.4 Eos % (Auto) 1.6 Baso % (Auto) 0.5 Absolute Neuts (auto) 3.7 Absolute Lymphs (auto) 1.54 Nucleated RBC % 0 PT 11.4 L INR 0.9 APTT 24.7 Sodium Potassium Chloride Carbon Dioxide Anion Gap BUN Creatinine Estim Creat Clear Calc Est GFR (MDRD) Af Amer Est GFR (MDRD) Non-Af BUN/Creatinine Ratio Glucose Calcium Troponin I POC Glucose > 500 H* 12/06/19 17:30 WBC RBC Hgb Hct MCV MCH MCHC RDW Std Deviation RDW Coeff of Ben Plt Count MPV Immature Gran % (Auto) Neut % (Auto) Lymph % (Auto) [place] % (Auto) Eos % (Auto) Baso % (Auto) Absolute Neuts (auto) Absolute Lymphs (auto) Nucleated RBC % PT INR APTT Sodium 131 L Potassium 5.0 Chloride 100 Carbon Dioxide 25.0 Anion Gap 6 BUN 26 H Creatinine 2.61 H Estim Creat Clear Calc 24.86 Est GFR (MDRD) Af Amer 25 L Est GFR (MDRD) Non-Af 20 L BUN/Creatinine Ratio 10.0 Glucose 526 H* Calcium 8.7 Troponin I < 0.015 POC Glucose - Rhythm Strip Rhythm Strip: Sinus Rhythm Rate: 98 Ectopy: None - EKG Initial EKG Interpretation: Sinus Rhythm - Normal sinus rhythm at 98 bpm. GA interval of [address] changes. QTC of 431 ms. No evidence of ST elevation or depression at this time. - Medical Decision Making Appears well nontoxic. Given worsening blurred vision that began 1 hour ago. Stroke team was called. CT brain negative. Glucose normal. EKG nonischemic. Tele-stroke evaluated the patient who felt safe for CTA. Against TPA. Patient sugar was found to be above 500. This is likely the cause for the patient's blurred vision. No evidence of DKA. Given 1 L of normal saline which decreased her glucose by 200 points. Advised to keep her sugar under tighter control and to follow-up with her primary care provider. Advised on following up with ophthalmology as well as neurology. Asked to return for new or worsening symptoms. Patient agreeable and discharged home in stable condition. Impression: 1. Hyperglycemia 2. Blurred vision ED Disposition - Plan for ED Patient: Disposition: Home or Assisted Living Instructions: ED Headache Unspecified, Hyperglycemia (High Blood Sugar) Referrals: Aki Archibald MD [Primary Care Provider] - 1 Day Alhaji Pierce MD [STAFF PHYSICIAN] - 3-5 Days Faheem Canales MD [STAFF PHYSICIAN] - 3-5 Days
== END 2019-12-06 21:20 | disposition home or self-care (01) ==
PROVIDERS: Emergency Provider Emergency Medicine; PCP Family Medicine
DX: E11.65 Type 2 diabetes mellitus with hyperglycemia (principal); H53.8 Other visual disturbances; I10 Essential (primary) hypertension; Z87.891 Personal history of nicotine dependence; Z79.4 Long term (current) use of insulin; Z79.899 Other long term (current) drug therapy
CPT/HCPCS: 70450; 70496; 70498; 71045; 80048; 82962; 84484; 85025; 85610; 85730; 93005; 96361; 96374; 99284; J7030; Q9967; J2405

== ENCOUNTER 2021-01-16 11:49 | Emergency (ER) | payer BC, SELFPAY ==
[2021-01-16 11:49] VITALS: BP 141/77; PULSE 90; RESP 16; TEMP 37; O2SAT 99; BMI 33.5
--- NOTE | 2021-01-16 11:52 | EKG12_ITS ---
Test Reason : CP Blood Pressure : / mmHG Vent. Rate : 089 BPM Atrial Rate : 089 BPM P-R Int : 152 ms QRS Dur : 084 ms QT Int : 370 ms P-R-T Axes : 060 039 073 degrees QTc Int : 450 ms Normal sinus rhythm Normal ECG Confirmed by NESTOR BERGMAN, DAVID ([id number]), editor house organ TULIO FANG ([id number]) on 01/17/2021 2:26:13 P M Referred By: VEENA/JANETT Confirmed By:AYAD BAEZ MD
--- NOTE | 2021-01-16 12:31 | ED.RN ---
ATTEMPTED TO OBTAIN AN IV. UNABLE TO AT THIS POINT. PT STATES THAT SHE IS A HARD STICK EVERY TIME SHE IS HERE.
[2021-01-16 13:06] LABS: Absolute Lymphocyte Count 1.27 X10^3/uL (0.83-4.51); Absolute Neutrophil Count 2.8 X10^3/uL (2.0-7.7); Basophil# 0.03 X10^3/uL; Basophil% 0.6 % (0-1); Eosinophil# 0.12 X10^3/uL; Eosinophils% 2.6 % (0-5); Hematocrit 32.8 % (37-47); Hemoglobin 10.5 g/dL (12.0-15.0); Lymphocyte # 1.27 X10^3/ul (0.83-4.51); Lymphocyte % 27.4 % (19-41); Mean Corpuscular Hgb 30.9 pg (27.0-32.0); Mean Corpuscular Volume 96.5 fL (81-99); Mean Platelet Vol. 8.6 fl (6.2-12.0); Monocyte% 8.6 % (0-10); NRBC Flagged by Analyzer 0 % (0-5); Neutrophil % 60.6 % (47-70); Platelet Count 180 K/mm3 (150-450); RBC Distribution Width SD 46.2 fl (35.1-43.9); White Blood Count 4.6 K/mm3 (4.4-11.0)
[2021-01-16 13:24] LABS: Anion Gap 3 (5-15); BUN 35 mg/dL (7-18); BUN/Creat Ratio 12.1 RATIO (10-20); Calcium,Total 8.4 mg/dL (8.5-10.1); Chloride 110 mmol/L (98-107); Creatinine, Serum 2.89 mg/dL (0.55-1.02); EST Glomerular Filtration Rate 18 mL/min (>60); Est Glom Filt Rate - Afr Amer 22 mL/min (>60); Estimated Creatinine Clearance 22.19 ml/min; Glucose 206 mg/dL (74-106); Potassium 5.2 mmol/L (3.5-5.1); Sodium Level 138 mmol/L (136-145); Troponin-I HS 9 pg/mL (3.0-54.0)
--- NOTE | 2021-01-16 13:35 | RAD_ITS ---
STUDY: X-RAY CHEST REASON FOR EXAM: Female, 55 years old. Chest pain TECHNIQUE: Single AP portable view of the chest. COMPARISON: Comparison is made with prior study 12/06/2019. FINDINGS: The lungs are clear and expanded. There is no demonstrated pleural abnormality. Normal size heart. Normal mediastinum and stone. Normal visualized pulmonary arteries. There is atherosclerotic calcification of the aortic arch with tortuosity. There are diffuse degenerative changes of the visualized thoracic spine. Normal visualized ribs, clavicles, and shoulders. There is no demonstrated abnormality of the visualized soft tissue structures of the upper abdomen. RAD/Chest 1 View (Portable) IMPRESSION: No acute amount is seen. Electronically Signed: Piter Dietrich MD at 14:10 EST , Service support ,
--- NOTE | 2021-01-16 14:03 | ED.VIS.CHEST ---
HPI History of Present Illness Chief Complaint: Chest Pain Informant: patient Onset/Context/Timing Onset: Today Activity at onset: gradual Timing: Continuous Quality: Positive for Aching Location: Left Chest Current Severity: Mild Maximum Severity: Mild Worsened By: Nothing Associated Symptoms: Negative for Nausea, Vomiting, Diaphoresis, Dyspnea, Cough, Fever, Lightheadedness, Acid Reflux and Palpitations Narrative Narrative: 55-year-old female history of fibromyalgia, reflux, diabetes, bipolar and had a DVT 9 years ago. Currently on no anticoagulation therapy. States she she had chest pain today started this morning when she was at home working on her computer. Left lateral rib cage. She denies any falls injury or trauma. She describes a straight stabbing pain. She denies any hemoptysis. Is not pleuritic. Nothing particular makes it better or worse. She states she has not had any recent exertional chest pain or exertional dyspnea. She denies any leg pain. She has had no recent travel surgery or immobilization. Prior Similar Symptoms: Yes Recent Illness/Hospitalization: No CVD Risk Factors: Positive for Diabetes PE Risk Factors: Positive for Prior DVT or PE; Negative for Recent Travel/Surgery, Recent Immobilization, Cancer and OCP + Smoking + >/=35 TAD Risk Factors: Negative for Marfan's Syndrome [facility] Medical History (Updated 01/16/21 @ 14:21 by Mayte Christensen) Fibromyalgia Neuropathy Home Medications cholecalciferol (vitamin D3) [Vitamin D] 5,000 unit PO DAILY 10/03/13 [History Last Taken 1 Day Ago ~11/24/16] omeprazole 20 mg PO DAILY 08/23/14 [History Last Taken 11/25/16] glipizide 10 mg PO BIDAC 04/28/15 [History Last Taken 11/25/16] labetalol 200 mg PO DAILY 04/28/15 [History Last Taken 11/25/16] aspirin [Aspir-Low] 81 mg PO DAILY 05/27/16 [History Last Taken 11/25/16] melatonin 5 mg PO QHS 05/27/16 [History Last Taken 1 Day Ago ~11/24/16] ferrous sulfate [Iron] 325 mg PO DAILY 11/25/16 [History Last Taken 11/25/16] Elavil 1 tab PO DAILY 11/12/17 [History Last Taken Unknown] pioglitazone 30 mg PO DAILY 11/12/17 [History Last Taken Unknown] vit [id number] [ Vitamins] 1 ea PO DAILY 11/12/17 [History Last Taken Unknown] insulin lispro 10 unit SQ DAILY 07/04/19 [History Last Taken Unknown] Allergy/AdvReac Type Severity Reaction Status Date / Time Penicillins Allergy Anaphylaxis Verified 01/16/21 11:51 tetracycline [Tetracycline] Allergy Anaphylaxis Verified 01/16/21 11:51 codeine AdvReac Abd Verified 01/16/21 11:51 cramps/diarrhea diphenhydramine HCl AdvReac Upset Verified 01/16/21 11:51 [From Benadryl] Stomach hydrocodone bitartrate AdvReac Abd Verified 01/16/21 11:51 [From Vicodin] cramps/diarrhea NSAIDS (Non-Steroidal AdvReac Unknown Verified 01/16/21 11:51 Anti-Inflamma Social History Smoking Status: Former smoker ROS ROS ED ROS Narrative Denies recent illness. She does have chronic nausea and vomiting. Review of Systems ROS Unobtainable: Denies due to encephalopathy Constitutional Constitutional ED: Denies chills, fever(s) or subjective Eyes Eyes: Denies none ENT ENT ED: Denies ear pain or sore throat Cardiovascular Cardiovascular: Reports as per HPI and chest pain; Denies palpitations or racing heartbeat Respiratory/Chest Respiratory/Chest: Denies cough or dyspnea Gastrointestinal Gastrointestinal: Reports nausea and vomiting; Denies abdominal pain, constipation or diarrhea Genitourinary Genitourinary ED: Denies dysuria Musculoskeletal Musculoskeletal: Denies myalgias Integumentary Denies rash Neurologic Neurologic: Denies headache(s) Psychiatric Psychiatric: Denies depression Endocrine Endocrinology: Denies polyuria Hematologic/Lymphatic Hematologic/Lymphatic: Denies easy bruising Allergic/Immunologic Allergic/Immunologic ED: Denies urticaria EXAM Physical Exam Narrative Exam Narrative: 55-year-old female no acute distress vital signs stable afebrile pulse ox 99% on room air no signs hypoxia. H EENT exam unremarkable. Neck nontender no JVD. Lungs clear to auscultation bilaterally. Heart regular rate and rhythm rate about 90 no murmur. Anterior chest wall nontender left lateral rib cage tenderness to palpation. There is no rash. No shingles. No signs of trauma. No ecchymosis or bruising. No subcu air or crepitance. No redness. Abdomen soft nontender normal bowel sounds no peritoneal signs. Extremities moves all 4. Calves nontender without edema or cords. Neurologically she is awake alert with no focal motor deficits Const Vital Signs: 01/16/21 11:49 01/16/21 14:19 01/16/21 15:11 Temperature 98.6 F Temperature Source Temporal Pulse Rate 90 84 Respiratory Rate 16 18 Blood Pressure 141/77 H 172/89 H Blood Pressure Mean 98 116 Pulse Ox 99 99 Oxygen Delivery Method Room Air Room Air Room Air Positive well nourished, well developed and obese; Negative for cachectic, contractures or unkempt General Appearance ED: well developed and NAD; Negative for unkempt, cachectic, contractures or pallor Nutritional Appearance: obese; Negative for cachectic HEENT Reports moist mucous membranes normocephalic and atraumatic; Negative for trauma or tenderness Eyes PERRL and EOMs intact bilaterally Neck no lymphadenopathy, supple and no JVD Chest Wall inspection of chest normal; Negative for palpation of chest normal Chest: tenderness Resp normal respiratory effort and clear to auscultation bilaterally Effort and Inspection: respiratory distress Auscultation: Negative for rales, rhonchi or wheezes Cardio regular rate, regular rhythm, S1 normal heart sound, S2 normal heart sound and no murmurs Rate: Negative for bradycardia or tachycardic Rhythm: Negative for abnormal rhythm GI normal to inspection, nondistended, normoactive bowel sounds, soft to palpation, non-tender, non-distended and no masses Back/Spine no CVA tenderness General Back: Negative for CVA tenderness Extremity normal to inspection General Extremety ED: Negative for edema or tenderness General Extremity: Negative for edema Neuro oriented x3 Sensorium / Orientation: awake, alert, oriented to person, oriented to place and oriented to time Motor Exam: strength 5/5 throughout Psych mental status grossly normal Appearance: Negative for unkempt Skin no rashes or lesions noted and no wounds General Skin Exam: Negative for jaundice or pallor Heart Score History: Slightly/Non-Suspicious ECG: Normal Age: >45 - <65 years Risk Factors: 1 or 2 Risk Factors Troponin: </= Normal Limit Score: 2 MDM MDM MDM Narrative Medical decision making narrative: Middle-aged female with left-sided reproducible chest wall pain. Nonexertional. No recent exertional chest pain or dyspnea. She is a non-smoker. She has no known cardiac history. She will undergo a cardiac work-up. Review exam patient is doing well. Second troponin is 9. Repeat EKG is unchanged. Patient be discharged home with outpatient follow-up. Lab Data Attestation: I reviewed the patient's lab results. Lab results narrative: CBC White count of 4. Hemoglobin 10.5 which is her baseline. Electrolytes potassium of 5.2 gap at 3 BUN of 35 creatinine 2.9 she is chronic renal insufficiency she is diabetic her glucose is 206 and her troponin is 9. Repeat EKG is a sinus rhythm rate of 84 no acute signs of FL or ischemia unchanged. Labs: Laboratory Results - last 24 hr 01/16/21 01/16/21 01/16/21 12:50 12:50 14:50 WBC 4.6 RBC 3.40 L Hgb 10.5 L Hct 32.8 L MCV 96.5 MCH 30.9 MCHC 32.0 RDW Std Deviation 46.2 H RDW Coeff of Ben 13.0 Plt Count 180 MPV 8.6 Immature Gran % (Auto) 0.200 Neut % (Auto) 60.6 Lymph % (Auto) 27.4 [place] % (Auto) 8.6 Eos % (Auto) 2.6 Baso % (Auto) 0.6 Absolute Neuts (auto) 2.8 Absolute Lymphs (auto) 1.27 Nucleated RBC % 0 Sodium 138 Potassium 5.2 H Chloride 110 H Carbon Dioxide 25.0 Anion Gap 3 L BUN 35 H Creatinine 2.89 H Estim Creat Clear Calc 22.19 Est GFR (MDRD) Af Amer 22 L Est GFR (MDRD) Non-Af 18 L BUN/Creatinine Ratio 12.1 Glucose 206 H Calcium 8.4 L Troponin I High Sens 9 9 Radiography Chest X-Ray - ED: 1 View, Read by ED Physician, Heart, Lungs, Mediastinum, Bony Structures, No Acute Disease and Chronic Changes Diagnostic Testing: Clinical Impression(s) from Imaging Studies Chest X-Ray 01/16/21 13:35 IMPRESSION: No acute amount is seen. Electronically Signed: Piter Dietrich MD at 14:10 EST , Service support , Chest x-ray single view, portable interpreted myself shows no acute abnormality. Normal cardiac silhouette mediastinum. Rhythm Strip Rhythm Strip: Sinus Rhythm Rate: 89 Ectopy: None EKG Initial EKG: Attestation: I personally reviewed and interpreted this EKG as follows: Interpretation: Sinus Rhythm and No Acute Injury Pattern Comments: Normal sinus rhythm rate 89 no acute signs of FL or ischemia. Repeat EKG was obtained normal sinus rhythm rate 84 unchanged from the first. Prior EKG tracings: available for review and not available for review Prior: Unchanged Discharge Plan Triage Chief Complaint: Chest Pain ED Provider: Johnathon Robertson Dx/Rx/DC Orders Clinical Impression: Chest pain, History of diabetes mellitus Instructions: ED Chest Pain, Uncertain Cause Prescriptions: No Action cholecalciferol (vitamin D3) [Vitamin D3] 1,000 UNIT capsule 5,000 unit PO DAILY RF: 0 omeprazole 20 MG capsule 20 mg PO DAILY RF: 0 labetalol 200 MG tablet 200 mg PO DAILY RF: 0 glipizide 5 MG tablet 10 mg PO BIDAC RF: 0 aspirin [Aspir-Low] 81 MG Tablet.Dr 81 mg PO DAILY RF: 0 melatonin 5 MG capsule 5 mg PO QHS RF: 0 ferrous sulfate [Iron (ferrous sulfate)] 325 MG tablet 325 mg PO DAILY RF: 0 pioglitazone 30 MG tablet 30 mg PO DAILY RF: 0 Elavil 1 tab PO DAILY RF: 0 vit [id number] [ Vitamin] 1 EACH tablet 1 ea PO DAILY RF: 0 insulin lispro 100 UNIT/ML solution 10 unit SQ DAILY RF: 0 Primary Care Provider: Aki Archibald Referrals: Aki Archibald MD [Primary Care Provider] - 3-5 Days if not improving Activity Restrictions/Additional Instructions: Follow-up with your primary care physician. Your work-up today was unremarkable. Return if feeling worse. Disposition Disposition: Home, Self Care
--- NOTE | 2021-01-16 14:21 | EKG12_ITS ---
Test Reason : REPEAT Blood Pressure : / mmHG Vent. Rate : 084 BPM Atrial Rate : 084 BPM P-R Int : 162 ms QRS Dur : 086 ms QT Int : 376 ms P-R-T Axes : 039 017 062 degrees QTc Int : 444 ms Normal sinus rhythm Normal ECG Confirmed by NESTOR BERGMAN, DAVID ([id number]), film editor supervisor TULIO FANG ([id number]) on 01/17/2021 2:26:26 P M Referred By: VEENA Confirmed By:AYAD BAEZ MD
[2021-01-16 15:11] VITALS: BP 172/89; PULSE 84; RESP 18; O2SAT 99
[2021-01-16 15:31] LABS: Troponin-I HS 9 pg/mL (3.0-54.0)
[2021-01-16 16:06] VITALS: BP 172/95; PULSE 89; RESP 20
== END 2021-01-16 16:24 | disposition home or self-care (01) ==
PROVIDERS: Emergency Provider Emergency Medicine; PCP Family Medicine
DX: R07.9 Chest pain, unspecified (principal); M79.7 Fibromyalgia; K21.9 Gastro-esophageal reflux disease without esophagitis; E11.9 Type 2 diabetes mellitus without complications; F31.9 Bipolar disorder, unspecified; E66.9 Obesity, unspecified; Z86.718 Personal history of other venous thrombosis and embolism; Z79.84 Long term (current) use of oral hypoglycemic drugs; Z79.899 Other long term (current) drug therapy; Z87.891 Personal history of nicotine dependence
CPT/HCPCS: 71045; 80048; 84484; 85025; 93005; 99284; A4216

== ENCOUNTER 2021-07-29 20:51 | Emergency (ER) | payer BC, SELFPAY ==
[2021-07-29 20:52] VITALS: BP 134/61; PULSE 95; RESP 15; TEMP 36.8; O2SAT 97; BMI 34.9
--- NOTE | 2021-07-29 21:05 | EKG12_ITS ---
Test Reason : DYSRHYTHMIA Blood Pressure : / mmHG Vent. Rate : 093 BPM Atrial Rate : 093 BPM P-R Int : 158 ms QRS Dur : 090 ms QT Int : 360 ms P-R-T Axes : 052 017 064 degrees QTc Int : 447 ms Normal sinus rhythm Normal ECG Confirmed by RENATA BERGMAN, VINOD ([id number]), book or script editor LINDA PICKETT ([id number]) on 07/30/2021 1:33:50 PM Referred By: LILIANE Confirmed By:VINOD YANEZ MD
--- NOTE | 2021-07-29 21:06 | EX.ED.DYSGE1 ---
HPI History of Present Illness Chief Complaint: Hypotension Narrative Narrative: Patient feels lightheaded when she stands up. She took her blood pressure at home which showed a blood pressure in the 70s. She has no fever or chills. She has no cough or congestion she is denying any kind of chest pain. She has no vertiginous symptoms. No headache or vision changes. She does not feel off balance. [facility] Medical History Fibromyalgia Neuropathy Home Medications cholecalciferol (vitamin D3) [Vitamin D] 5,000 unit PO DAILY 10/03/13 [History Last Taken 1 Day Ago ~11/24/16] omeprazole 20 mg PO DAILY 08/23/14 [History Last Taken 11/25/16] glipizide 10 mg PO BIDAC 04/28/15 [History Last Taken 11/25/16] labetalol 200 mg PO DAILY 04/28/15 [History Last Taken 11/25/16] aspirin [Aspir-Low] 81 mg PO DAILY 05/27/16 [History Last Taken 11/25/16] melatonin 5 mg PO QHS 05/27/16 [History Last Taken 1 Day Ago ~11/24/16] ferrous sulfate [Iron] 325 mg PO DAILY 11/25/16 [History Last Taken 11/25/16] Elavil 1 tab PO DAILY 11/12/17 [History Last Taken Unknown] pioglitazone 30 mg PO DAILY 11/12/17 [History Last Taken Unknown] vit [id number] [ Vitamins] 1 ea PO DAILY 11/12/17 [History Last Taken Unknown] insulin lispro 10 unit SQ DAILY 07/04/19 [History Last Taken Unknown] Allergy/AdvReac Type Severity Reaction Status Date / Time Penicillins Allergy Anaphylaxis Verified 07/29/21 20:52 tetracycline [Tetracycline] Allergy Anaphylaxis Verified 07/29/21 20:52 codeine AdvReac Abd Verified 07/29/21 20:52 cramps/diarrhea diphenhydramine HCl AdvReac Upset Verified 07/29/21 20:52 [From Benadryl] Stomach hydrocodone bitartrate AdvReac Abd Verified 07/29/21 20:52 [From Vicodin] cramps/diarrhea NSAIDS (Non-Steroidal AdvReac Unknown Verified 07/29/21 20:52 Anti-Inflamma Social History Smoking Status: Former smoker ROS ROS ED ROS Narrative Past medical history: Reviewed, includes hypertension, COPD, CKD, diabetes Medications: Reviewed Social history: Noncontributory Review of systems: All systems negative except as indicated General: No fever. Lightheaded as in HPI Eyes: No visual changes ENT: No upper airway congestion, normal voice Neck: No neck pain Cardiovascular: No chest pain. No palpitations Respiratory: No shortness of breath or cough Gastrointestinal: No abdominal pain, nausea vomiting or diarrhea Genitourinary: No dysuria Musculoskeletal: Denies myalgias no difficulty with ambulation Skin: No rash Neurological: No memory loss, confusion or any focal weakness. No vertigo or disequilibrium symptoms Psych: No recent behavioral changes Hematologic: No easy bleeding or easy bruising EXAM Physical Exam Narrative Exam Narrative: Physical exam General: Well nourished, Well developed, No Acute Distress Head: Normocephalic, Atraumatic Eyes: Conjunctiva not pale ENT: Moist somewhat dry mucous membranes Neck: Supple, Nontender, No lymphadenopathy Cardiovascular: Regular rate, Regular rhythm Respiratory: No distress, CTA bilaterally Abdomen: Soft, Nontender, Nondistended Back: Nontender, Normal Inspection. Negative for: CVA tenderness Extremities: Nontender, No edema Skin: Normal color, No rash Neurological: Alert, Normal Strength, Normal Sensation Psychological: Normal affect Const Vital Signs: 07/29/21 20:52 07/29/21 21:08 Temperature 98.2 F Temperature Source Temporal Pulse Rate 95 Pulse Rate [Lying] 96 Pulse Rate [Sitting (for 1 minute prior to obtaining)] 96 Pulse Rate [Standing (for 1 minute prior to obtaining)] 102 H Respiratory Rate 15 Blood Pressure 134/61 H Blood Pressure [Lying] 157/78 H Blood Pressure [Sitting (for 1 minute prior to obtaining)] 156/78 H Blood Pressure [Standing (for 1 minute prior to obtaining)] 103/83 H Blood Pressure Mean 85 Blood Pressure Mean [Lying] 104 Blood Pressure Mean [Sitting (for 1 minute prior to obtaining)] 104 Blood Pressure Mean [Standing (for 1 minute prior to obtaining)] 89 Pulse Ox 97 Oxygen Delivery Method Room Air MDM MDM MDM Narrative Medical decision making narrative: Patient's blood pressure is normal in the emergency department, she is slightly orthostatic thus I gave her IV fluids. However she does have some worsening of her renal function. She has a aids counselor which is following her renal function. At this time she has a normal potassium electrolytes. And a normal anion gap. We believe she can be discharged with prompt follow-up with her aids counselor, she is in the [facility] system, I watched her get on my chart and text her aids counselor for a prompt follow-up this week. If anything changes she is to return. Since her renal function worsened and she is slight hypotensive I will decrease her labetalol in half until seen by nephrology. Lab Data Labs: Laboratory Results - last 24 hr 07/29/21 07/29/21 21:20 21:20 WBC 5.7 RBC 3.17 L Hgb 9.8 L Hct 30.9 L MCV 97.5 MCH 30.9 MCHC 31.7 L RDW Std Deviation 45.4 H RDW Coeff of Ben 12.8 Plt Count 188 MPV 9.4 Immature Gran % (Auto) 0.400 Neut % (Auto) 56.8 Lymph % (Auto) 30.3 [place] % (Auto) 8.1 Eos % (Auto) 3.7 Baso % (Auto) 0.7 Absolute Neuts (auto) 3.2 Absolute Lymphs (auto) 1.72 Nucleated RBC % 0 Sodium 140 Potassium 4.8 Chloride 111 H Carbon Dioxide 21.0 Anion Gap 8 BUN 40 H Creatinine 4.03 H Estim Creat Clear Calc 15.72 Est GFR (MDRD) Af Amer 15 L Est GFR (MDRD) Non-Af 12 L BUN/Creatinine Ratio 9.9 L Glucose 196 H Calcium 8.0 L Magnesium 1.7 Total Bilirubin 0.30 AST 21 ALT 30 Alkaline Phosphatase 85 Total Protein 6.1 L Albumin 2.9 L Globulin 3.2 Albumin/Globulin Ratio 0.9 Discharge Plan Triage Chief Complaint: Hypotension ED Provider: Tyler Harris Dx/Rx/DC Orders Clinical Impression: Chronic renal insufficiency, Dehydration Instructions: CKD Dc Prescriptions: No Action cholecalciferol (vitamin D3) [Vitamin D3] 1,000 UNIT capsule 5,000 unit PO DAILY RF: 0 omeprazole 20 MG capsule 20 mg PO DAILY RF: 0 labetalol 200 MG tablet 200 mg PO DAILY RF: 0 glipizide 5 MG tablet 10 mg PO BIDAC RF: 0 aspirin [Aspir-Low] 81 MG Tablet.Dr 81 mg PO DAILY RF: 0 melatonin 5 MG capsule 5 mg PO QHS RF: 0 ferrous sulfate [Iron (ferrous sulfate)] 325 MG tablet 325 mg PO DAILY RF: 0 pioglitazone 30 MG tablet 30 mg PO DAILY RF: 0 Elavil 1 tab PO DAILY RF: 0 vit [id number] [ Vitamin] 1 EACH tablet 1 ea PO DAILY RF: 0 insulin lispro 100 UNIT/ML solution 10 unit SQ DAILY RF: 0 Primary Care Provider: Aki Archibald Referrals: Aki Archibald MD [Primary Care Provider] - 2 Days Activity Restrictions/Additional Instructions: take half of the labetalol, so will take 50 mg twice a day instead of 100 mg twice a day. Follow-up with your PCP in 2 days and your aids counselor in the next few days. Disposition Disposition: Home, Self Care
[2021-07-29 21:08] VITALS: BP 103/83; BP 156/78; BP 157/78; PULSE 102; PULSE 96
[2021-07-29 21:31] LABS: Absolute Lymphocyte Count 1.72 X10^3/uL (0.83-4.51); Absolute Neutrophil Count 3.2 X10^3/uL (2.0-7.7); Basophil# 0.04 X10^3/uL; Basophil% 0.7 % (0-1); Eosinophil# 0.21 X10^3/uL; Eosinophils% 3.7 % (0-5); Hematocrit 30.9 % (37-47); Hemoglobin 9.8 g/dL (12.0-15.0); Lymphocyte # 1.72 X10^3/ul (0.83-4.51); Lymphocyte % 30.3 % (19-41); Mean Corp Hgb Conc 31.7 g/dL (32-36); Mean Corpuscular Hgb 30.9 pg (27.0-32.0); Mean Corpuscular Volume 97.5 fL (81-99); Mean Platelet Vol. 9.4 fl (6.2-12.0); Monocyte# 0.46 X10^3/uL; Monocyte% 8.1 % (0-10); NRBC Flagged by Analyzer 0 % (0-5); Neutrophil # 3.23 X10^3/uL (2.7-7.7); Neutrophil % 56.8 % (47-70); Platelet Count 188 K/mm3 (150-450); RBC Distribution Width CV 12.8 % (11.6-14.6); RBC Distribution Width SD 45.4 fl (35.1-43.9); Red Blood Count 3.17 M/mm3 (4.2-5.4); White Blood Count 5.7 K/mm3 (4.4-11.0)
[2021-07-29] MEDS: 0.9% Normal Saline 1,000 ML 1000 ML IV (21:31)
[2021-07-29 21:54] LABS: ALB/GLOB Ratio 0.9 RATIO (0.9-2.4); AST(SGOT) 21 U/L (15-37); Alanine Aminotransfer ALT/SGPT 30 U/L (13-56); Albumin, Serum 2.9 g/dL (3.2-5.0); Alkaline Phosphatase 85 U/L (45-117); Anion Gap 8 (5-15); BUN 40 mg/dL (7-18); BUN/Creat Ratio 9.9 RATIO (10-20); Chloride 111 mmol/L (98-107); Creatinine, Serum 4.03 mg/dL (0.55-1.02); EST Glomerular Filtration Rate 12 mL/min (>60); Est Glom Filt Rate - Afr Amer 15 mL/min (>60); Estimated Creatinine Clearance 15.72 ml/min; Globulin 3.2 g/dL (2.2-4.2); Glucose 196 mg/dL (74-106); Magnesium 1.7 mg/dL (1.6-2.6); Potassium 4.8 mmol/L (3.5-5.1); Protein, Total 6.1 g/dL (6.4-8.2); Sodium Level 140 mmol/L (136-145)
--- NOTE | 2021-07-29 22:19 | EX.ED.DYSGE1 ---
HPI History of Present Illness Chief Complaint: Hypotension [facility] Medical History Fibromyalgia Neuropathy Home Medications cholecalciferol (vitamin D3) [Vitamin D] 5,000 unit PO DAILY 10/03/13 [History Last Taken 1 Day Ago ~11/24/16] omeprazole 20 mg PO DAILY 08/23/14 [History Last Taken 11/25/16] glipizide 10 mg PO BIDAC 04/28/15 [History Last Taken 11/25/16] labetalol 200 mg PO DAILY 04/28/15 [History Last Taken 11/25/16] aspirin [Aspir-Low] 81 mg PO DAILY 05/27/16 [History Last Taken 11/25/16] melatonin 5 mg PO QHS 05/27/16 [History Last Taken 1 Day Ago ~11/24/16] ferrous sulfate [Iron] 325 mg PO DAILY 11/25/16 [History Last Taken 11/25/16] Elavil 1 tab PO DAILY 11/12/17 [History Last Taken Unknown] pioglitazone 30 mg PO DAILY 11/12/17 [History Last Taken Unknown] vit [id number] [ Vitamins] 1 ea PO DAILY 11/12/17 [History Last Taken Unknown] insulin lispro 10 unit SQ DAILY 07/04/19 [History Last Taken Unknown] Allergy/AdvReac Type Severity Reaction Status Date / Time Penicillins Allergy Anaphylaxis Verified 07/29/21 20:52 tetracycline [Tetracycline] Allergy Anaphylaxis Verified 07/29/21 20:52 codeine AdvReac Abd Verified 07/29/21 20:52 cramps/diarrhea diphenhydramine HCl AdvReac Upset Verified 07/29/21 20:52 [From Benadryl] Stomach hydrocodone bitartrate AdvReac Abd Verified 07/29/21 20:52 [From Vicodin] cramps/diarrhea NSAIDS (Non-Steroidal AdvReac Unknown Verified 07/29/21 20:52 Anti-Inflamma Social History Smoking Status: Former smoker EXAM Physical Exam Const Vital Signs: 07/29/21 20:52 07/29/21 21:08 Temperature 98.2 F Temperature Source Temporal Pulse Rate 95 Pulse Rate [Lying] 96 Pulse Rate [Sitting (for 1 minute prior to obtaining)] 96 Pulse Rate [Standing (for 1 minute prior to obtaining)] 102 H Respiratory Rate 15 Blood Pressure 134/61 H Blood Pressure [Lying] 157/78 H Blood Pressure [Sitting (for 1 minute prior to obtaining)] 156/78 H Blood Pressure [Standing (for 1 minute prior to obtaining)] 103/83 H Blood Pressure Mean 85 Blood Pressure Mean [Lying] 104 Blood Pressure Mean [Sitting (for 1 minute prior to obtaining)] 104 Blood Pressure Mean [Standing (for 1 minute prior to obtaining)] 89 Pulse Ox 97 Oxygen Delivery Method Room Air MDM MDM Lab Data Labs: Laboratory Results - last 24 hr 07/29/21 07/29/21 21:20 21:20 WBC 5.7 RBC 3.17 L Hgb 9.8 L Hct 30.9 L MCV 97.5 MCH 30.9 MCHC 31.7 L RDW Std Deviation 45.4 H RDW Coeff of Ben 12.8 Plt Count 188 MPV 9.4 Immature Gran % (Auto) 0.400 Neut % (Auto) 56.8 Lymph % (Auto) 30.3 [place] % (Auto) 8.1 Eos % (Auto) 3.7 Baso % (Auto) 0.7 Absolute Neuts (auto) 3.2 Absolute Lymphs (auto) 1.72 Nucleated RBC % 0 Sodium 140 Potassium 4.8 Chloride 111 H Carbon Dioxide 21.0 Anion Gap 8 BUN 40 H Creatinine 4.03 H Estim Creat Clear Calc 15.72 Est GFR (MDRD) Af Amer 15 L Est GFR (MDRD) Non-Af 12 L BUN/Creatinine Ratio 9.9 L Glucose 196 H Calcium 8.0 L Magnesium 1.7 Total Bilirubin 0.30 AST 21 ALT 30 Alkaline Phosphatase 85 Total Protein 6.1 L Albumin 2.9 L Globulin 3.2 Albumin/Globulin Ratio 0.9 Discharge Plan Triage Chief Complaint: Hypotension ED Provider: Tyler Harris Dx/Rx/DC Orders Clinical Impression: Chronic renal insufficiency, Dehydration Instructions: CKD Dc Prescriptions: No Action cholecalciferol (vitamin D3) [Vitamin D3] 1,000 UNIT capsule 5,000 unit PO DAILY RF: 0 omeprazole 20 MG capsule 20 mg PO DAILY RF: 0 labetalol 200 MG tablet 200 mg PO DAILY RF: 0 glipizide 5 MG tablet 10 mg PO BIDAC RF: 0 aspirin [Aspir-Low] 81 MG Tablet.Dr 81 mg PO DAILY RF: 0 melatonin 5 MG capsule 5 mg PO QHS RF: 0 ferrous sulfate [Iron (ferrous sulfate)] 325 MG tablet 325 mg PO DAILY RF: 0 pioglitazone 30 MG tablet 30 mg PO DAILY RF: 0 Elavil 1 tab PO DAILY RF: 0 vit no.[id number] [ Vitamin] 1 EACH tablet 1 ea PO DAILY RF: 0 insulin lispro 100 UNIT/ML solution 10 unit SQ DAILY RF: 0 Primary Care Provider: Aki Archibald Referrals: Aki Archibald MD [Primary Care Provider] - 2 Days Activity Restrictions/Additional Instructions: take half of the labetalol, so will take 50 mg twice a day instead of 100 mg twice a day. Follow-up with your PCP in 2 days and your reinsurance analyst in the next few days. Disposition Disposition: Home, Self Care
[2021-07-29 22:32] VITALS: BP 149/76
== END 2021-07-29 22:33 | disposition home or self-care (01) ==
PROVIDERS: Emergency Provider Emergency Medicine; PCP Family Medicine; Visit Provider Emergency Medicine
DX: E86.0 Dehydration (principal); J44.9 Chronic obstructive pulmonary disease, unspecified; E11.40 Type 2 diabetes mellitus with diabetic neuropathy, unspecified; E11.22 Type 2 diabetes mellitus with diabetic chronic kidney disease; Z79.4 Long term (current) use of insulin; I95.9 Hypotension, unspecified; I12.9 Hypertensive chronic kidney disease with stage 1 through stage 4 chronic kidney disease, or unspecified chronic kidney disease; N18.9 Chronic kidney disease, unspecified; Z87.891 Personal history of nicotine dependence; M79.7 Fibromyalgia; Z79.899 Other long term (current) drug therapy; Z79.82 Long term (current) use of aspirin
CPT/HCPCS: 80053; 83735; 85025; 93005; 96360; 99284; J7030; A4216

== ENCOUNTER 2022-09-07 13:45 | Emergency (ER) | payer BC, SELFPAY ==
[2022-09-07 13:46] VITALS: BP 162/70; PULSE 88; RESP 98; TEMP 36.4; BMI 35.9
--- NOTE | 2022-09-07 14:04 | ED.VIS.LOWEX ---
HPI <BREANNA Cleary - Last Filed: 09/07/22 14:46> History of Present Illness Chief Complaint: Lower Extremity Injury Narrative Narrative: 57-year-old female presents with right lower leg pain x1 week with no fall or injury. It hurts in the anterior upper estrella area. She was taking old Percocet she had on hand which was helping but does not have anymore and today the pain was severe and worse with walking. No weakness numbness or tingling. She has chronic swelling in that leg from a prior injury but no increased swelling. No rash or skin changes. She has a history of DVT about 8 years ago attributed to her IUD. She was on Xarelto for 6 months and has not had any clots since then. Denies chest pain or shortness of breath. [facility] <BREANNA Cleary - Last Filed: 09/07/22 14:46> [facility] Medical History Fibromyalgia Neuropathy Home Medications cholecalciferol (vitamin D3) 25 mcg (1,000 unit) capsule (Vitamin D3) 5,000 unit PO DAILY 10/03/13 [History Last Taken 1 Day Ago ~11/24/16] omeprazole 20 mg capsule,delayed release 20 mg PO DAILY 08/23/14 [History Last Taken 11/25/16] glipizide 5 mg tablet 10 mg PO BIDAC 04/28/15 [History Last Taken 11/25/16] labetalol 200 mg tablet 200 mg PO DAILY 04/28/15 [History Last Taken 11/25/16] aspirin 81 mg tablet,delayed release (Aspir-Low) 81 mg PO DAILY 05/27/16 [History Last Taken 11/25/16] melatonin 5 mg capsule 5 mg PO QHS 05/27/16 [History Last Taken 1 Day Ago ~11/24/16] ferrous sulfate 325 mg (65 mg iron) tablet (Iron (ferrous sulfate)) 325 mg PO DAILY 11/25/16 [History Last Taken 11/25/16] Elavil 1 tab PO DAILY 11/12/17 [History Last Taken Unknown] pioglitazone 30 mg tablet 30 mg PO DAILY 11/12/17 [History Last Taken Unknown] vits no.130-ferrous fum 27 mg iron-folic acid 800 mcg tablet ( Vitamin) 1 ea PO DAILY 11/12/17 [History Last Taken Unknown] insulin lispro 100 unit/mL subcutaneous solution 10 unit SQ DAILY 07/04/19 [History Last Taken Unknown] hydrocodone-acetaminophen 5-325mg 5mg-325mg 1 tab PO Q6H PRN pain 3 days #12 tabs 09/07/22 [Rx Last Taken Unknown] Allergy/AdvReac Type Severity Reaction Status Date / Time Penicillins Allergy Anaphylaxis Verified 07/29/21 20:52 tetracycline [Tetracycline] Allergy Anaphylaxis Verified 07/29/21 20:52 codeine AdvReac Abd Verified 07/29/21 20:52 cramps/diarrhea diphenhydramine HCl AdvReac Upset Verified 07/29/21 20:52 [From Benadryl] Stomach hydrocodone bitartrate AdvReac Abd Verified 07/29/21 20:52 [From Vicodin] cramps/diarrhea NSAIDS (Non-Steroidal AdvReac Unknown Verified 07/29/21 20:52 Anti-Inflamma Social History Smoking Status: Former smoker ROS <BREANNA Cleary - Last Filed: 09/07/22 14:46> ROS ED ROS Narrative Constitutional: Negative for fever, chills, malaise. CVS: Negative for chest pain Respiratory: Negative for shortness of breath. Neuro: Negative for motor/sensory dysfunction. Skin: Negative for rash, abscess, or wound. Musc: Negative for trauma. EXAM <BREANNA Cleary - Last Filed: 09/07/22 14:46> Physical Exam Narrative Exam Narrative: CONST: Patient sitting in no acute distress. EYES: Normal inspection. NECK: Normal inspection. RESP: No respiratory distress, CTAB. CVS: Regular rate and rhythm, no murmur, no gallop. SKIN: Color normal, no rash, warm, dry, intact. EXTREMITIES: 1+ edema right ankle. Tender palpation over the right tibial tubercle and medial knee. Calf tenderness with no palpable cords or warmth. No deformity or crepitus. Full range of motion of hip knee and ankle, pain with knee valgus stress but no laxity. Normal sensation, 2+ DP pulse. NEURO: Oriented x4. PSYCH: Normal affect. Const Vital Signs: 09/07/22 13:46 Temperature 97.5 F L Temperature Source Oral Pulse Rate 88 Respiratory Rate 98 H Blood Pressure 162/70 H Blood Pressure Mean 100 Oxygen Delivery Method Room Air <Dr. Quentin Kim DO - Last Filed: 09/07/22 14:51> Physical Exam Const Vital Signs: 09/07/22 13:46 Temperature 97.5 F L Temperature Source Oral Pulse Rate 88 Respiratory Rate 98 H Blood Pressure 162/70 H Blood Pressure Mean 100 Oxygen Delivery Method Room Air MDM <BREANNA Cleray - Last Filed: 09/07/22 14:46> [facility] Narrative Medical decision making narrative: Patient has atraumatic right leg pain. She is tender over the knee and calf. She has full range of motion and is neurovascularly intact. There is no infectious signs or symptoms. X-rays negative for acute findings. With remote history of DVT and ultrasound will be ordered to be done outpatient tomorrow. They are not available here today on Thursday. She has no chest pain or shortness of breath so I do not think she needs prophylactic anticoagulation. She was given an Ronald wrap and [place] for pain control and discharged in stable condition. Differential: Leg fracture, ligamentous or meniscal injury, arthritis, DVT, among others Attending note: Patient seen and evaluated with horse show judge. I perform my own [id number] evaluation. I agree with the plan of work-up. Nontraumatic pain distal anterior leg for the past week. Symptoms worse with walking. Denies new activities. Further discussed states does have pain in her calf when she walks. She had a DVT 8 years ago bilaterally she was anticoagulants reported concerns secondary to IUD. No chest pains or shortness of breath. No recent travel or surgeries. No history of mobilization. States chronic right ankle swelling. Exam no swelling in the knee is tender palpation anterior tibia plateau. Knee extensor was intact. There is calf tenderness on exam. There is minimal ankle edema. Pulses are intact distally. No surrounding erythema. Treated with pain medicines. NSAIDs not given due to CKD. Obtain x-ray due to bony pain. No current ultrasound available. No chest pains or shortness of breath. Radiography Diagnostic Testing: Clinical Impression(s) from Imaging Studies Knee X-Ray 09/07/22 14:10 IMPRESSION: Degenerative arthrosis. Electronically Signed: Ryan Conn MD at 14:36 EDT , ED attending interpretation of right knee x-ray shows no acute fracture or dislocation. <Dr. Quentin Kim, DO - Last Filed: 09/07/22 14:51> [facility] Narrative Medical decision making narrative: Patient has atraumatic right leg pain. She is tender over the knee and calf. She has full range of motion and is neurovascularly intact. There is no infectious signs or symptoms. X-rays negative for acute findings. With remote history of DVT and ultrasound will be ordered to be done outpatient tomorrow. They are not available here today on Thursday. She has no chest pain or shortness of breath so I do not think she needs prophylactic anticoagulation. She was given an Ronald wrap and [place] for pain control and discharged in stable condition. Differential: Leg fracture, ligamentous or meniscal injury, arthritis, DVT, among others Attending note: Patient seen and evaluated with horse show judge. I perform my own [id number] evaluation. I agree with the plan of work-up. Nontraumatic pain distal anterior leg for the past week. Symptoms worse with walking. Denies new activities. Further discussed states does have pain in her calf when she walks. She had a DVT 8 years ago bilaterally she was anticoagulants reported concerns secondary to IUD. No chest pains or shortness of breath. No recent travel or surgeries. No history of mobilization. States chronic right ankle swelling. Exam no swelling in the knee is tender palpation anterior tibia plateau. Knee extensor was intact. There is calf tenderness on exam. There is minimal ankle edema. Pulses are intact distally. No surrounding erythema. Treated with pain medicines. NSAIDs not given due to CKD. Obtain x-ray due to bony pain. Osteoarthritic changes noted. No current ultrasound available. No chest pains or shortness of breath. We will hold on anticoagulation for CKD history. She will have outpatient ultrasound ordered for tomorrow. Radiography Diagnostic Testing: Clinical Impression(s) from Imaging Studies Knee X-Ray 09/07/22 14:10 IMPRESSION: Degenerative arthrosis. Electronically Signed: Ryan Conn MD at 14:36 EDT , Discharge Plan Triage Chief Complaint: Lower Extremity Injury ED Midlevel Provider: Norma Stallworth ED Provider: Quentin Kim Dx/Rx/DC Orders Clinical Impression: Right leg pain Instructions: Medicine for Pain Prescriptions: New hydrocodone-acetaminophen 5-325 mg tablet 1 tab PO Q6H PRN (Reason: pain) 3 Days Qty: 12 0RF No Action cholecalciferol (vitamin D3) [Vitamin D3] 1,000 UNIT capsule 5,000 unit PO DAILY omeprazole 20 MG capsule 20 mg PO DAILY labetalol 200 MG tablet 200 mg PO DAILY glipizide 5 MG tablet 10 mg PO BIDAC aspirin [Aspir-Low] 81 MG tablet,delayed release (DR/EC) 81 mg PO DAILY melatonin 5 MG capsule 5 mg PO QHS ferrous sulfate [Iron (ferrous sulfate)] 325 MG tablet 325 mg PO DAILY pioglitazone 30 MG tablet 30 mg PO DAILY Elavil 1 tab PO DAILY vit no.[id number] [ Vitamin] 1 EACH tablet 1 ea PO DAILY insulin lispro 100 UNIT/ML solution 10 unit SQ DAILY Other Ambulatory Orders: Venous Duplex US, Unilateral (Stat) Facility: [facility] - Location: [facility] Ordered By: Norma Stallworth Primary Care Provider: Aki Archibald Referrals: Aki Archibald MD [Primary Care Provider] - Activity Restrictions/Additional Instructions: Return tomorrow to have an ultrasound of your right leg to rule out a blood clot. Please follow-up with your PCP or orthopedic doctor. Disposition Disposition: Home, Self Care
[2022-09-07] MEDS: Oxycodone/Apap 5/325 Tablet PO (14:05)
--- NOTE | 2022-09-07 14:10 | RAD_ITS ---
STUDY: XR Knee Complete 4 Views or More 09/07/2022 2:34 PM REASON FOR EXAM: Female, 57 years old. pain TECHNIQUE: XR Knee Complete 4 Views or More RIGHT COMPARISON: 03/26/18 FINDINGS: Normal visualized distal femur. Normal visualized proximal tibia and fibula. Normal proximal tibiofibular articulation. There is moderate degenerative arthrosis of the medial femorotibial compartment with moderate joint space narrowing. There is mild degenerative arthrosis of the lateral femorotibial compartment. There is mild degenerative arthrosis of the patellofemoral articulation. There are atherosclerotic calcifications. RAD/Knee 4 or More Views IMPRESSION: Degenerative arthrosis. Electronically Signed: Ryan Conn MD at 14:36 EDT ,
[2022-09-07 14:57] VITALS: BP 177/74; PULSE 80; RESP 16; O2SAT 99
== END 2022-09-07 14:59 | disposition home or self-care (01) ==
PROVIDERS: Emergency Provider Emergency Medicine; PCP Family Medicine; Visit Provider Emergency Medicine
DX: M79.604 Pain in right leg (principal); N18.9 Chronic kidney disease, unspecified; R60.0 Localized edema; Z87.891 Personal history of nicotine dependence; M19.90 Unspecified osteoarthritis, unspecified site; Z79.01 Long term (current) use of anticoagulants; Z86.718 Personal history of other venous thrombosis and embolism
CPT/HCPCS: 73564; 99284

== ENCOUNTER 2022-09-09 17:17 | Observation (INO) | payer BC, SELFPAY ==
[2022-09-09 17:17] VITALS: BP 190/89; PULSE 99; RESP 15; TEMP 36.2; O2SAT 99; BMI 34.4
[2022-09-09 21:48] VITALS: RESP 16
[2022-09-09 23:00] VITALS: RESP 18
--- NOTE | 2022-09-09 23:30 | ED.RN ---
AFTER MULTIPLE ATTEMPTS FOR IV ACCESS AND BLOOD DRAW BY LAB, DR HALL NOTIFIED OF INABILITY FOR ACCESS.
[2022-09-10] VITALS (8 sets, daily range): BP systolic 122–188; BP diastolic 61–78; PULSE 84–94; RESP 16–20; TEMP 36.5–37.2; O2SAT 94–99; BMI 35.5; BMI 35.4
--- NOTE | 2022-09-10 00:43 | PCM.HP.STD ---
HPI - General General Date of Admission: 09/10/22 Date of Service: 09/10/22 Chief Complaint: RLE pain, radicular pain. HPI Narrative The patient is a 57 y/o F w/ PMHx: COPD/Asthma, Anxiety and Depression/Bipolar disorder, CKD stage IV with planned for upcoming HD start with recent AVF graft infection with hospitalization at [place] with surgery and abx therapy following with [facility] nephrology, Diabetes mellitus type II w/ chronic neuropathy, Fibromyalgia, HTN, HLD, Chronic normocytic anemia who presents to the [facility] ED on 09/10/22 with history of ongoing right-sided lower extremity pain described as a dull aching and sharp stabbing with shooting pains down the leg to 10 of 10 in severity especially with any activity or movement attempts starting approximately 1.5 weeks prior to current presentation with no reported specific injury or fall but ongoing with recent per her report outpatient negative right lower extremity DVT ultrasound and recent assessment in the emergency room with unremarkable right knee plain film however she is unable to take care of herself prompting PCP to refer the ED for further evaluation. In the ED work-up included T97.2, heart rate 99, BP 190/89, respiratory rate 15, 99% on room air, plain the right hip with bony osteopenia and mild degenerative changes with no visualized acute fracture, pending noncontrast lumbar CT spine upon requested evaluation of patient, pending CBC, BMP, ESR, CRP and lactic acid upon requested evaluation of patient secondary to significant difficulties with IV and lab draw access potential. Discussed with ED physician and noted intention for ultrasound guidance attempts. If patient is unable to have this may necessitate midline as would like to defer PICC given planned upcoming dialysis and already had issues with one of her AV grafts. [facility] Medical History (Updated 09/10/22 @ 02:[address] Lizzy Bragg MD) Anxiety and depression Bipolar disorder Chronic anemia COPD with asthma Diabetes mellitus, type 2 Fibromyalgia Former tobacco use HLD (hyperlipidemia) HTN (hypertension) Neuropathy Home Medications cholecalciferol (vitamin D3) 25 mcg (1,000 unit) capsule (Vitamin D3) 5,000 unit PO DAILY 10/03/13 [History Last Taken 1 Day Ago ~11/24/16] omeprazole 20 mg capsule,delayed release 20 mg PO DAILY 08/23/14 [History Last Taken 11/25/16] glipizide 5 mg tablet 10 mg PO BIDAC 04/28/15 [History Last Taken 11/25/16] labetalol 200 mg tablet 200 mg PO DAILY 04/28/15 [History Last Taken 11/25/16] aspirin 81 mg tablet,delayed release (Aspir-Low) 81 mg PO DAILY 05/27/16 [History Last Taken 11/25/16] melatonin 5 mg capsule 5 mg PO QHS 05/27/16 [History Last Taken 1 Day Ago ~11/24/16] ferrous sulfate 325 mg (65 mg iron) tablet (Iron (ferrous sulfate)) 325 mg PO DAILY 11/25/16 [History Last Taken 11/25/16] Elavil 1 tab PO DAILY 11/12/17 [History Last Taken Unknown] pioglitazone 30 mg tablet 30 mg PO DAILY 11/12/17 [History Last Taken Unknown] vits no.130-ferrous fum 27 mg iron-folic acid 800 mcg tablet ( Vitamin) 1 ea PO DAILY 11/12/17 [History Last Taken Unknown] insulin lispro 100 unit/mL subcutaneous solution 10 unit SQ DAILY 07/04/19 [History Last Taken Unknown] hydrocodone-acetaminophen 5-325mg 5mg-325mg 1 tab PO Q6H PRN pain 3 days #12 tabs 09/07/22 [Rx Last Taken Unknown] Allergy/AdvReac Type Severity Reaction Status Date / Time Penicillins Allergy Anaphylaxis Verified 09/09/22 17:20 tetracycline [Tetracycline] Allergy Anaphylaxis Verified 09/09/22 17:20 codeine AdvReac Abd Verified 09/09/22 17:20 cramps/diarrhea diphenhydramine HCl AdvReac Upset Verified 09/09/22 17:20 [From Benadryl] Stomach hydrocodone bitartrate AdvReac Abd Verified 09/09/22 17:20 [From Vicodin] cramps/diarrhea NSAIDS (Non-Steroidal AdvReac Unknown Verified 09/09/22 17:20 Anti-Inflamma Family History (Updated 09/10/22 @ 02:[address] Lizzy Bragg MD) Mother Heart disease Hypertension Diabetes Kidney disease Father Diabetes Surgical History (Updated 09/10/22 @ 02:[address] Lizzy Bragg MD) H/O gastric bypass H/O vascular surgery S/P appendectomy S/P cholecystectomy Social History (Updated 09/10/22 @ 02:[address] Lizzy Bragg MD) household members: none Smoking Status: Former smoker how long ago did patient quit smoking: Quit age 24. alcohol intake: never substance use type: does not use ROS ROS Narrative Admission Review of Systems: CONSTITUTIONAL: No weight loss, fever, chills, + weakness or fatigue. HEENT: Eyes: No visual loss, blurred vision, double vision or yellow sclerae. Ears, Nose, Throat: No hearing loss, sneezing, congestion, runny nose or sore throat. SKIN: No rash or itching, lesions, wounds. CARDIOVASCULAR: No chest pain, chest pressure or chest discomfort, palpitations, edema, orthopnea, syncopal events. RESPIRATORY: No shortness of breath, cough or sputum, wheezing, hemoptysis. GASTROINTESTINAL: No anorexia, nausea, vomiting or diarrhea, abdominal pain, melena, BRBPR. GENITOURINARY: No dysuria, frequency, urgency or retention. NEUROLOGICAL: + RLE radiculopathy. No headache, dizziness, syncope, paralysis, ataxia, focal weakness, change in bowel or bladder control, seizure. MUSCULOSKELETAL: + muscle, back pain, joint pain or stiffness. HEMATOLOGIC: + anemia, bleeding or bruising. LYMPHATICS: No enlarged nodes. No history of splenectomy. PSYCHIATRIC: + history of depression or anxiety. ENDOCRINOLOGIC: No reports of sweating, cold or heat intolerance. No polyuria or polydipsia. ALLERGIES: +history of asthma, hives, rhinitis. Vital Signs Vital Signs Vital Signs: 09/09/22 17:17 09/09/22 21:48 Temperature 97.2 F L Temperature Source Temporal Pulse Rate 99 Respiratory Rate 15 16 Blood Pressure 190/89 H Blood Pressure Mean 122 Pulse Ox 99 Oxygen Delivery Method Room Air Weight Weight: 227 lb Body Mass Index (BMI) 34.4 Physical Exam Narrative Physical Examination: General: Awake, alert, oriented x 3 and cooperative, seated upright in the ED bed in no apparent distress, mildly uncomfortable appearing but reports ongoing severe RLE pain. Skin: Normal color, normal turgor, no icterus, no cyanosis. HEENT: AT/NC, EOMI, PERRLA, mildly dry MM, no carotid bruits or JVD noted. Lungs: CTA bilaterally, moderate effort, mild decrease BL bases, no rales, ronchi or wheezing. Heart: Currently regular rate and rhythm; no gallop, rub audible. Abdomen: Soft, obese, NTTP, ND, distant normal BS, no obvious evidence of HSM. Extremities: No cyanosis, no clubbing, BL LE ankle mild pitting edema, diffuse TTP RLE primarily knee upward, + SLR, admits to radicular shooting pain. Neurological: Patient awake, alert, oriented as noted, cognitive function intact; pupils equally reactive to light and accommodation, cranial nerves II-XII grossly normal, moving all 4 extremities except extremely limited RLE movements secondary to pain, strength accordingly severely globally decreased. Psychiatric: Affect appears fatigued, uncomfortable, no acute evidence of depressive or anxiety feelings. Assessment & Plan Assessment/Plan (1) Right leg pain: (2) Obesity: PLAN: Plan The patient is a 57 y/o F w/ PMHx: COPD/Asthma, Anxiety and Depression/Bipolar disorder, CKD stage IV with planned for upcoming HD start with recent AVF graft infection with hospitalization at [place] with surgery and abx therapy following with [facility] nephrology, Diabetes mellitus type II w/ chronic neuropathy, Fibromyalgia, HTN, HLD, Chronic normocytic anemia who presents to the [facility] ED on 09/10/22 with history of ongoing right-sided lower extremity pain described as a dull aching and sharp stabbing with shooting pains down the leg to 10 of 10 in severity especially with any activity or movement attempts starting approximately 1.5 weeks prior to current presentation with no reported specific injury or fall. #1. Acute Intractable RLE Pain with radiculopathy: Plain film of the right hip in the ED and recent right knee plain film not marked appearing although notable chronic disease, pending CT lumbar spine noncontrast upon requested evaluation of patient. If CT lumbar spine appropriate will admit to [facility], maintain on fall precautions, frequent positioning, initiate lidoacine patches, tizanidine, medrol dose pack, po/IV narcotic pain regimen, anti-emetics, bowel regimen. Given underlying renal disease currently undergoing the transition to dialysis we will hold aggressive anti-inflammatory regimen. Will consult PT and OT for evaluation as well as Case management for discharge planning. If any concerning findings on lumbar CT or worsening low threshold to involve orthopedic surgery. #2. Recent history infected AVF: Patient with recent hospitalization in the [place] per reports secondary to infected AV graft with surgical intervention and antibiotic therapy treatment, encourage continued outpatient follow-up as previously arranged. #3. Chronic Kidney Disease Stage IV with pending HD initiation: Awaiting admission BUN/creatinine, baseline renal function most recently in the 4 range but has vacillated, will plan repeat in a.m. if able, follows with [facility] nephrology. #4. Chronic COPD/asthma: From current list not on any chronic inhalers, will have PRN albuterol, HOB, IS parameters. #5. Hypertension: Continue home regimen including labetalol, PRN hydralazine. #6. Hyperlipidemia: Not on regimen, defer to outpatient. #7. Anxiety and depression/bipolar disorder: Currently only regimen noted per her list is Elavil, will continue although this certainly could be from her chronic neuropathy associate with diabetes as well. #8. Chronic normocytic anemia/AOCD: Still awaiting admission CBC as noted, baseline hemoglobin noted most recently 07/29/2021 9.8, will continue to trend as able, continue iron supplementation. #9. Diabetes mellitus type II with chronic neuropathy: Hold oral home regimen, continue home insulin regimen, ADA diet, accu checks w/ ISS. #10. GERD: We will continue patient home PPI. #11. DVT prophylaxis: Heparin. #12. CODE status: Patient does not have healthcare power of main line assembler or living will in place but notes that if she needed a decision maker if she could not make decisions she would want her sister Halle to be her appointed individual. Discussed CODE status at length including difference between FULL code, DNR-CCA and DNR-CC status. Following discussions about the differences in these status, requested Full Code but if efforts became futile she would prefer to transition to comfort care. Advanced Care Planning Face to Face Time: 16 minutes. Admission Evaluation Time spent evaluating chart, patient history, patient evaluation, care planning and discussion with specialists: 60 minutes. Charges/Coding Visit Charges Inpatient E&M: 12723 Init Hosp L2 Procedures Hospitalists Procedures: 16504 Advncd Care Plan 30 Min
--- NOTE | 2022-09-10 01:01 | RAD_ITS ---
STUDY: X-RAY - PELVIS AND RIGHT HIP REASON FOR EXAM: Female, 57 years old. Right hip pain TECHNIQUE: 3 views of the pelvis and hip. COMPARISON: CT pelvis May 21, 2015 FINDINGS: There is a non-specific bowel gas pattern. There are atherosclerotic vascular calcifications of the pelvic arteries. There is narrowing with cortical sclerosis and osteophyte formation of the sacroiliac joint consistent with degenerative osteoarthritic changes. Normal bilateral superior and inferior pubic rami. Normal pubic symphysis. Normal bilateral ischial tuberosities. The bones are osteopenic. There is mild degenerative change of the hip joints. RAD/HIP, UNI W/ Pelvis 2-3 Views IMPRESSION: Bony osteopenia and mild degenerative change. No visualized acute fracture. Electronically Signed: Lynne Orozco MD at 1:42 EDT ,
--- NOTE | 2022-09-10 01:01 | CT_ITS ---
STUDY: CT LUMBAR SPINE WITHOUT CONTRAST REASON FOR EXAM: Female, 57 years old. Lumbar radiculopathy RADIATION DOSAGE (If Supplied By Facility): CTDIvol = ( 27.35 ) mGy, DLP = ( 856.12 ) mGycm TECHNIQUE: The patient was scanned in a multi detector CT scanner. High resolution transaxial imaging was performed. Images were obtained from T11 to sacrum. Sagittal and coronal images were reconstructed. There is greater prominence of the soft tissues when compared to the prior study. There is greater bony osteopenia. The study is limited due to body habitus. Individualized dose optimization techniques were used for this CT. COMPARISON: Bone windows CT scan abdomen and pelvis May 21, 2015 FINDINGS: Normal lumbar lordosis. There is no substantial scoliosis. There is multilevel spondylosis. There is a deep Schmorl''s node or degenerative change suggested at the level L2 when compared to the prior study. L1-2: There is a broad disc bulge mild neural foramina narrowing mild central stenosis. L2-3: There is a broad disc bulge moderate neural foramina narrowing mild to moderate central stenosis. There is facet arthropathy. L3-4: There is vacuum phenomenon. There is a broad disc osteophyte moderate right lateral disc osteophyte protrusion moderate right neural foramina narrowing mild to moderate central stenosis. L4-5: There is a broad right lateral disc bulge with mild to moderate right neural foraminal narrowing without central stenosis. L5-S1: There is spondylosis without significant neural foramina narrowing to suggest stenosis. There is degenerative change of the SI joints. There is atherosclerotic disease of the visualized aorta. There is visualized mild bilateral renal atrophy. The bladder appears very distended. CT/Spine Lumbar without Contrast IMPRESSION: Since prior study, 8 years ago there there is interval greater degenerative change particularly at the level of L2-L3 with areas visualized interval deep Schmorl''s node or disc disease especially involving the inferior endplate with moderate neural foramina narrowing mild to moderate central stenosis at the level of L2-3 L4-L5. When appropriate. Consider follow-up MRI. No visualized acute loss of height or alignment. Overdistended bladder recommend voiding and/or catheterization. Recommend pre and post void imaging if appropriate. Incidental visualization of gallbladder atrophy atherosclerotic disease of the aorta. Electronically Signed: Lynne Orozco MD at 2:04 EDT ,
[2022-09-10 02:46] LABS: Absolute Lymphocyte Count 1.62 X10^3/uL (0.83-4.51); Basophil# 0.04 X10^3/uL; Basophil% 0.6 % (0-1); Eosinophils% 3.1 % (0-5); Hemoglobin 9.4 g/dL (12.0-15.0); Lymphocyte # 1.62 X10^3/ul (0.83-4.51); Lymphocyte % 25.2 % (19-41); Mean Corp Hgb Conc 31.3 g/dL (32-36); Mean Corpuscular Hgb 30.9 pg (27.0-32.0); Mean Corpuscular Volume 98.7 fL (81-99); Mean Platelet Vol. 9.5 fl (6.2-12.0); Monocyte# 0.55 X10^3/uL; Monocyte% 8.6 % (0-10); NRBC Flagged by Analyzer 0 % (0-5); Neutrophil # 3.99 X10^3/uL (2.7-7.7); Platelet Count 138 K/mm3 (150-450); RBC Distribution Width CV 12.8 % (11.6-14.6); Red Blood Count 3.04 M/mm3 (4.2-5.4); White Blood Count 6.4 K/mm3 (4.4-11.0)
[2022-09-10] MEDS: Ondansetron 4 MG/2 ML Vial IV ×3 (02:46→18:18)
[2022-09-10] MEDS: Morphine 4 MG/ML Syringe IV (02:47)
[2022-09-10 02:50] LABS: Erythrocyte Sedimentation Rate 21 mm/hr (0-30)
[2022-09-10 02:59] LABS: Anion Gap 8 (5-15); BUN 51 mg/dL (7-18); BUN/Creat Ratio 9.6 RATIO (10-20); Calcium,Total 8.4 mg/dL (8.5-10.1); Chloride 108 mmol/L (98-107); Creatinine, Serum 5.32 mg/dL (0.55-1.02); EST Glomerular Filtration Rate 9 mL/min (>60); Est Glom Filt Rate - Afr Amer 11 mL/min (>60); Estimated Creatinine Clearance 11.77 ml/min; Glucose 166 mg/dL (74-106); Potassium 4.8 mmol/L (3.5-5.1); Sodium Level 136 mmol/L (136-145)
--- NOTE | 2022-09-10 03:06 | EX.ED.DYSGE1 ---
HPI History of Present Illness Chief Complaint: Lower Extremity Injury Informant: patient Narrative Narrative: Patient is a 57-year-old female with past medical history of chronic kidney disease type 2 diabetes hypertension and COPD. She states that she has been having increasing right leg pain with no trauma. She states it is to the point where she cannot stand secondary to the increased pain with weightbearing and this makes her unable to perform her activities of daily living. She reports she contact her family doctor because of this and he advised her to go to the ER for potential admission and even mcc placement based on her worsening pain and inability to care for self. Patient does states she had x-rays of her right knee which revealed no acute findings and an ultrasound of her right leg which revealed superficial venous thrombus but no deep vein thrombosis [facility] Medical History (Updated 09/10/22 @ 03:[address] Minh Arroyo, DO) Anxiety and depression Bipolar disorder Chronic anemia COPD with asthma Diabetes mellitus, type 2 Fibromyalgia Former tobacco use HLD (hyperlipidemia) HTN (hypertension) Neuropathy Home Medications cholecalciferol (vitamin D3) 25 mcg (1,000 unit) capsule (Vitamin D3) 5,000 unit PO DAILY 10/03/13 [History Last Taken 1 Day Ago ~11/24/16] omeprazole 20 mg capsule,delayed release 20 mg PO DAILY 08/23/14 [History Last Taken 11/25/16] glipizide 5 mg tablet 10 mg PO DAILY 04/28/15 [History Last Taken 11/25/16] labetalol 200 mg tablet 200 mg PO BID 04/28/15 [History Last Taken 11/25/16] aspirin 81 mg tablet,delayed release (Aspir-Low) 81 mg PO DAILY 05/27/16 [History Last Taken 11/25/16] melatonin 5 mg capsule 5 mg PO QHS 05/27/16 [History Last Taken 1 Day Ago ~11/24/16] ferrous sulfate 325 mg (65 mg iron) tablet (Iron (ferrous sulfate)) 325 mg PO DAILY 11/25/16 [History Last Taken 11/25/16] Elavil 1 tab PO DAILY 11/12/17 [History Last Taken Unknown] vits no.130-ferrous fum 27 mg iron-folic acid 800 mcg tablet ( Vitamin) 1 ea PO DAILY 11/12/17 [History Last Taken Unknown] hydrocodone-acetaminophen 5-325mg 5mg-325mg 1 tab PO Q6H PRN pain 3 days #12 tabs 09/07/22 [Rx Last Taken Unknown] atorvastatin 40 mg tablet 40 mg PO QHS hyperlipidemia 09/10/22 [History Last Taken Unknown] calcitriol 0.25 mcg capsule 0.25 mcg PO BID 09/10/22 [History Last Taken Unknown] dulaglutide 1.5 mg/0.5 mL subcutaneous pen injector (Trulicity) mg subcut 09/10/22 [History Last Taken 09/07/22] sevelamer HCl 800 mg tablet 1,600 mg PO QHS 09/10/22 [History Last Taken Unknown] sodium bicarbonate 650 mg tablet 650 mg PO QHS 09/10/22 [History Last Taken Unknown] Allergy/AdvReac Type Severity Reaction Status Date / Time Penicillins Allergy Anaphylaxis Verified 09/09/22 17:20 tetracycline [Tetracycline] Allergy Anaphylaxis Verified 09/09/22 17:20 codeine AdvReac Abd Verified 09/09/22 17:20 cramps/diarrhea diphenhydramine HCl AdvReac Upset Verified 09/09/22 17:20 [From Benadryl] Stomach hydrocodone bitartrate AdvReac Abd Verified 09/09/22 17:20 [From Vicodin] cramps/diarrhea NSAIDS (Non-Steroidal AdvReac Unknown Verified 09/09/22 17:20 Anti-Inflamma Family History (Updated 09/10/22 @ 02:[address] Lizzy Bragg MD) Mother Heart disease Hypertension Diabetes Kidney disease Father Diabetes Surgical History (Updated 09/10/22 @ 02:[address] Lizzy Bragg MD) H/O gastric bypass H/O vascular surgery S/P appendectomy S/P cholecystectomy Social History (Updated 09/10/22 @ 02:[address] Lizzy Bragg MD) household members: none Smoking Status: Former smoker how long ago did patient quit smoking: Quit age 24. alcohol intake: never substance use type: does not use ROS ROS ED Constitutional Constitutional ED: Denies chills or fever(s) ENT ENT ED: Denies sore throat Cardiovascular Cardiovascular: Denies chest pain Respiratory/Chest Respiratory/Chest: Denies cough or dyspnea Gastrointestinal Gastrointestinal: Denies abdominal pain, diarrhea, nausea or vomiting Genitourinary Genitourinary ED: Denies dysuria Musculoskeletal Musculoskeletal: Reports other Details: Positive right leg pain Integumentary Denies Abrasions or rash Neurologic Neurologic: Denies headache(s) Hematologic/Lymphatic Hematologic/Lymphatic: Denies easy bleeding or easy bruising EXAM Physical Exam Const Vital Signs: 09/09/22 17:17 09/09/22 21:48 09/09/22 23:00 Temperature 97.2 F L Temperature Source Temporal Pulse Rate 99 Respiratory Rate 15 16 18 Blood Pressure 190/89 H Blood Pressure Mean 122 Pulse Ox 99 Oxygen Delivery Method Room Air 09/10/22 01:00 Temperature Temperature Source Pulse Rate Respiratory Rate 18 Blood Pressure Blood Pressure Mean Pulse Ox Oxygen Delivery Method Positive well nourished, well developed and obese General Appearance ED: well developed Nutritional Appearance: obese HEENT HEENT Narrative: Normocephalic atraumatic Eyes PERRL and EOMs intact bilaterally Neck supple Neck Narrative: No nuchal rigidity or meningeal signs Resp normal respiratory effort and clear to auscultation bilaterally Cardio regular rate and regular rhythm GI normal to inspection, nondistended, normoactive bowel sounds, non-tender and non-distended GI Narrative: No voluntary guarding or rigidity no pulsatile mass Auscultation: normoactive bowel sounds Palpation: soft Back/Spine Back/Spine Narrative: No saddle anesthesia. Negative straight leg raise. Patellar reflexes are plus 1 out of 4 bilaterally. No clonus or Babinski. Extremity Extremity Narrative: Right lower extremity has scant ecchymotic lesions but patient denies any previous trauma. There is no pitting edema present. No overlying erythema or warmth to suggest cellulitis. Capillary refill is less than 3 seconds. Compartments are soft going against compartment syndrome. Patient still has active range of motion. Neuro oriented x3 and CN's II-XII intact bilaterally Sensorium / Orientation: alert Psych mental status grossly normal Skin no rashes or lesions noted MDM MDM MDM Narrative Medical decision making narrative: Patient presented to the ER hypertensive but has a past medical history of this and otherwise with stable vitals. She is already had an x-ray of her right knee as well as reported venous duplex. By exam there is no obvious signs of cellulitis abscess or compartment syndrome. Also by exam there is not appear to be saddle anesthesia indicating cauda equina syndrome or obvious signs of lumbar radiculopathy. Patient blood work was obtained and shows patient have an elevated creatinine of 5.3 but this is near her baseline and otherwise no clinically significant findings other than elevation to her C-reactive protein which is nonspecific in nature. X-ray of the right hip reveals degenerative changes and CT of the low back also shows degenerative changes without compression fracture or obvious nerve impingement. Based on the fact the patient states she is unable to ambulate or care for herself medicine was contacted and they do agree to accept the patient at this time. Patient does report that she is willing to go to nursing or rehab if necessary History & Record Review Discussion w/independent historian: Patient Lab Data Attestation: I reviewed the patient's lab results. Labs: Laboratory Results - last 24 hr 09/10/22 02:41 WBC 6.4 RBC 3.04 L Hgb 9.4 L Hct 30.0 L MCV 98.7 MCH 30.9 MCHC 31.3 L RDW Std Deviation 46.0 H RDW Coeff of Ben 12.8 Plt Count 138 L MPV 9.5 Immature Gran % (Auto) 0.500 Neut % (Auto) 62.0 Lymph % (Auto) 25.2 [place] % (Auto) 8.6 Eos % (Auto) 3.1 Baso % (Auto) 0.6 Absolute Neuts (auto) 4.0 Absolute Lymphs (auto) 1.62 Nucleated RBC % 0 ESR 21 Sodium 136 Potassium 4.8 Chloride 108 H Carbon Dioxide 20.0 L Anion Gap 8 BUN 51 H Creatinine 5.32 H Estim Creat Clear Calc 11.77 Est GFR (MDRD) Af Amer 11 L Est GFR (MDRD) Non-Af 9 L BUN/Creatinine Ratio 9.6 L Glucose 166 H Calcium 8.4 L C-React Prot Ext Range 15.60 H Radiography Diagnostic Testing: Clinical Impression(s) from Imaging Studies Hip/Pelvis X-Ray 09/10/22 01:01 IMPRESSION: Bony osteopenia and mild degenerative change. No visualized acute fracture. Electronically Signed: Lynne Orozco MD at 1:42 EDT , Lumbar Spine CT 09/10/22 01:01 IMPRESSION: Since prior study, 8 years ago there there is interval greater degenerative change particularly at the level of L2-L3 with areas visualized interval deep Schmorl''s node or disc disease especially involving the inferior endplate with moderate neural foramina narrowing mild to moderate central stenosis at the level of L2-3 L4-L5. When appropriate. Consider follow-up MRI. No visualized acute loss of height or alignment. Overdistended bladder recommend voiding and/or catheterization. Recommend pre and post void imaging if appropriate. Incidental visualization of gallbladder atrophy atherosclerotic disease of the aorta. Electronically Signed: Lynne Orozco MD at 2:04 EDT , Management Discussion w/another healthcare provider: Hospitalist Discharge Plan Dx/Rx/DC Orders Clinical Impression: Right leg pain, Inability to walk, History of diabetes mellitus, type II, Benign essential hypertension, Kidney disease, chronic, stage IV (GFR 15-29 ml/min) Disposition Disposition: Acute Care Hospital [facility]
[2022-09-10 03:42] LABS: Lactic Acid 0.8 mmol/L (0.4-1.9)
[2022-09-10] MEDS: Labetalol (Prefilled) 20 MG/4 ML IV (03:46)
[2022-09-10 03:48] LABS: Magnesium 1.6 mg/dL (1.6-2.6); Phosphorus 6.5 mg/dL (2.5-4.9)
--- NOTE | 2022-09-10 04:48 | NURSING ---
patient access director notified of a midline needed. will call back 9am
[2022-09-10] MEDS: Lidocaine 5% Patch 2 PATCH TOPICAL (05:34)
--- NOTE | 2022-09-10 05:55 | MRI_ITS ---
STUDY: MRI LUMBAR SPINE WITHOUT CONTRAST REASON FOR EXAM: Female, 57 years old. RT ,radiculopathy, lumbar stenosis TECHNIQUE: Standardized fat and water weighted pulse sequences were obtained in the sagittal and axial planes. COMPARISON: CT lumbar spine without contrast 09/10/2022. FINDINGS: T11-T12: (Sagittal only). Normal endplates. Normal disc height, hydration and morphology. Schmorl''s node in the T11 inferior endplate is unchanged. No ventral extradural defect. Normal facet joints. Normal central canal and bilateral lateral recesses. Normal bilateral intervertebral neural foramina. T12-L1: Normal endplates. Schmorl''s node in the central L1 superior endplate is unchanged. Mild disc space height narrowing. Minimal ventral extradural defect is small posterior bulging annulus. Normal facet joints. Normal central canal and bilateral lateral recesses. Mild dorsal epidural lipomatosis. Normal bilateral intervertebral neural foramina. Normal lumbar lordosis. There is no substantial scoliosis. Normal conus medullaris that terminates at the mid T12 vertebral body level. L1-2: Normal endplates. Normal disc height, hydration and morphology. Normal bilateral facet joints. Normal central canal and bilateral lateral recesses. Normal bilateral intervertebral neural foramina. L2-3: Prominent and deep central Schmorl''s node in the L2 inferior endplate. Normal L2 superior endplate. Moderate Modic type I degenerative vertebral marrow edema underneath the vertebral endplates. Mild disc space height narrowing. Minimal ventral extradural defect is posterior bulging annulus. Mild bilateral degenerative facet arthropathy, right greater than left. Prominent dorsal epidural lipomatosis. Mild central canal stenosis with an AP canal diameter of 9 mm. Normal bilateral lateral recesses. Normal bilateral intervertebral neural foramina. L3-4: Mixed Modic type I and type II degenerative changes underneath the vertebral endplates, greater towards the right side. Moderate disc space height narrowing. Schmorl''s node in the anterior L3 inferior endplate contains degenerative vacuum phenomenon. Mild ventral extradural defect due to posterior bulging annulus. Mild right degenerative facet arthropathy. Normal right facet joint. Mild dorsal epidural lipomatosis. Moderate central canal stenosis with an AP canal diameter of 8 mm. Normal bilateral lateral recesses. Mild stenosis of the right intervertebral neural foramen. Normal left intervertebral neural foramen. L4-5: Normal endplates. Normal disc height. Small posterior bulging annulus with very minimal ventral extradural defect due to presence of ventral epidural fat. No significant facet arthropathy. Mild central canal stenosis with an AP canal diameter of 9 mm. Normal bilateral lateral recesses. Normal bilateral intervertebral neural foramina. L5-S1: Normal endplates. Normal disc height, hydration and morphology. Marked tapering of the thecal sac at the lower L5 vertebral body level with only a thin sliver of the thecal sac continuing down to the upper S2 vertebral body level surrounded by epidural lipomatosis. This is congenital. Normal bilateral lateral recesses. Normal bilateral intervertebral neural foramina. Normal visualized sacral ala. Normal visualized paraspinous soft tissue structures. MRI/Spine Lumbar (Routine) IMPRESSION: 1. No MRI evidence of lumbar extruded disc fragment or disc protrusion. 2. Moderate central canal stenosis at L3-L4 disc space level with an AP canal diameter of 8 mm, mild stenosis of the right intervertebral neural foramen and small posterior bulging annulus. 3. Moderate L2-L3 intervertebral osteochondritis (Modic type I), small posterior bulging annulus and mild central canal stenosis with an AP canal diameter of 9 mm. Electronically Signed: Raymon Goetz MD at 11:49 EDT ,
[2022-09-10 06:19] LABS: Absolute Lymphocyte Count 1.47 X10^3/uL (0.83-4.51); Absolute Neutrophil Count 4.4 X10^3/uL (2.0-7.7); Basophil# 0.04 X10^3/uL; Basophil% 0.6 % (0-1); Eosinophil# 0.15 X10^3/uL; Eosinophils% 2.3 % (0-5); Hematocrit 27.3 % (37-47); Hemoglobin 8.8 g/dL (12.0-15.0); Lymphocyte # 1.47 X10^3/ul (0.83-4.51); Lymphocyte % 22.2 % (19-41); Mean Corp Hgb Conc 32.2 g/dL (32-36); Mean Corpuscular Hgb 31.4 pg (27.0-32.0); Mean Corpuscular Volume 97.5 fL (81-99); Mean Platelet Vol. 9.5 fl (6.2-12.0); Monocyte# 0.55 X10^3/uL; Monocyte% 8.3 % (0-10); NRBC Flagged by Analyzer 0 % (0-5); Neutrophil # 4.38 X10^3/uL (2.7-7.7); Neutrophil % 66.3 % (47-70); Platelet Count 137 K/mm3 (150-450); RBC Distribution Width CV 12.8 % (11.6-14.6); RBC Distribution Width SD 45.5 fl (35.1-43.9); White Blood Count 6.6 K/mm3 (4.4-11.0)
[2022-09-10 06:54] LABS: ALB/GLOB Ratio 0.8 RATIO (0.9-2.4); AST(SGOT) 23 U/L (15-37); Alanine Aminotransfer ALT/SGPT 20 U/L (13-56); Albumin, Serum 2.6 g/dL (3.2-5.0); Alkaline Phosphatase 86 U/L (45-117); Anion Gap 8 (5-15); BUN 50 mg/dL (7-18); BUN/Creat Ratio 9.5 RATIO (10-20); Calcium,Total 7.9 mg/dL (8.5-10.1); Chloride 110 mmol/L (98-107); Creatinine, Serum 5.24 mg/dL (0.55-1.02); EST Glomerular Filtration Rate 9 mL/min (>60); Est Glom Filt Rate - Afr Amer 11 mL/min (>60); Estimated Creatinine Clearance 11.95 ml/min; Globulin 3.4 g/dL (2.2-4.2); Glucose 243 mg/dL (74-106); Sodium Level 137 mmol/L (136-145)
--- NOTE | 2022-09-10 07:57 | PCM.PN.HOSP ---
Reason for Visit Reason for Visit: Diagnoses Obesity, unspecified (09/10/22) Pain in right leg (09/10/22) Subjective Subjective Still with pain down right leg. Medially around right knee, but when she stands up, it goes down to her foot. Objective Data Objective Data Vital Signs: Vital Signs Temp Pulse Resp BP Pulse Ox O2 Del Method 36.9 C 92 18 159/67 H 99 Room Air 09/10/22 04:18 09/10/22 04:18 09/10/22 04:18 09/10/22 04:18 09/10/22 04:18 09/10/22 04:18 Oxygen Delivery Method Room Air Weight: 105.687 kg Body Mass Index (BMI) 35.4 Intake & Output: Intake and Output for Last 24 Hours 09/08/22 09/09/22 09/10/22 23:59 23:59 23:59 Output Total 250 / 250 Balance -250 / -250 Lab / Micro Data 09/10/22 06:00 09/10/22 06:00 Labs: Laboratory Results - last 24 hr 09/10/22 02:41: WBC 6.4, RBC 3.04 L, Hgb 9.4 L, Hct 30.0 L, MCV 98.7, MCH 30.9, MCHC 31.3 L, RDW Std Deviation 46.0 H, RDW Coeff of Ben 12.8, Plt Count 138 L, MPV 9.5, Immature Gran % (Auto) 0.500, Neut % (Auto) 62.0, Lymph % (Auto) 25.2, [place] % (Auto) 8.6, Eos % (Auto) 3.1, Baso % (Auto) 0.6, Absolute Neuts (auto) 4.0, Absolute Lymphs (auto) 1.62, Nucleated RBC % 0, ESR 21, Sodium 136, Potassium 4.8, Chloride 108 H, Carbon Dioxide 20.0 L, Anion Gap 8, BUN 51 H, Creatinine 5.32 H, Estim Creat Clear Calc 11.77, Est GFR (MDRD) Af Amer 11 L, Est GFR (MDRD) Non-Af 9 L, BUN/Creatinine Ratio 9.6 L, Glucose 166 H, Calcium 8.4 L, Phosphorus 6.5 H, Magnesium 1.6, C-React Prot Ext Range 15.60 H 09/10/22 03:12: Lactic Acid 0.8 09/10/22 06:00: WBC 6.6, RBC 2.80 L, Hgb 8.8 L, Hct 27.3 L, MCV 97.5, MCH 31.4, MCHC 32.2, RDW Std Deviation 45.5 H, RDW Coeff of Ben 12.8, Plt Count 137 L, MPV 9.5, Immature Gran % (Auto) 0.300, Neut % (Auto) 66.3, Lymph % (Auto) 22.2, [place] % (Auto) 8.3, Eos % (Auto) 2.3, Baso % (Auto) 0.6, Absolute Neuts (auto) 4.4, Absolute Lymphs (auto) 1.47, Nucleated RBC % 0, Sodium 137, Potassium 5.0, Chloride 110 H, Carbon Dioxide 19.0 L, Anion Gap 8, BUN 50 H, Creatinine 5.24 H, Estim Creat Clear Calc 11.95, Est GFR (MDRD) Af Amer 11 L, Est GFR (MDRD) Non-Af 9 L, BUN/Creatinine Ratio 9.5 L, Glucose 243 H, Calcium 7.9 L, Total Bilirubin 0.40, AST 23, ALT 20, Alkaline Phosphatase 86, Total Protein 6.0 L, Albumin 2.6 L, Globulin 3.4, Albumin/Globulin Ratio 0.8 L Radiography Diagnostic Testing: Radiology Impression Hip/Pelvis X-Ray 09/10/22 01:01 IMPRESSION: Bony osteopenia and mild degenerative change. No visualized acute fracture. Electronically Signed: Lynne Orozco MD at 1:42 EDT , Lumbar Spine CT 09/10/22 01:01 IMPRESSION: Since prior study, 8 years ago there there is interval greater degenerative change particularly at the level of L2-L3 with areas visualized interval deep Schmorl''s node or disc disease especially involving the inferior endplate with moderate neural foramina narrowing mild to moderate central stenosis at the level of L2-3 L4-L5. When appropriate. Consider follow-up MRI. No visualized acute loss of height or alignment. Overdistended bladder recommend voiding and/or catheterization. Recommend pre and post void imaging if appropriate. Incidental visualization of gallbladder atrophy atherosclerotic disease of the aorta. Electronically Signed: Lynne Orozco MD at 2:04 EDT , Physical Exam Const alert and no apparent distress Constitutional Narrative: appears older than stated age. Extremity Extremity Narrative: pain on medial right leg, swatted my hand away when I lightly palpated her leg. Assessment & Plan Assessment/Plan (1) Right leg pain: PLAN: Acute Intractable RLE Pain with radiculopathy: Plain film of the right hip in the ED and recent right knee plain film not marked appearing although notable chronic disease, pending CT lumbar spine Since prior study, 8 years ago there there is interval greater degenerative change particularly at the level of L2-L3 with areas visualized interval deep Schmorl''s node or disc disease especially involving the inferior endplate with moderate neural foramina narrowing mild to moderate central stenosis at the level of L2-3 L4-L5. When appropriate. Consider follow-up MRI. No visualized acute loss of height or alignment. Overdistended bladder recommend voiding and/or catheterization. Recommend pre and post void imaging if appropriate. MRI Moderate central canal stenosis at L3-L4, mild stenosis of right intervertebral neural foramen and small posterior bulging annulus. Moderate L2-3 intervertebral osteochondritis posterior bulging annulus and mild central canal stenosis. Through [facility]: duplex on 09/09 showed SVT on left small saphenous vein near the saphenofemoral junction Pain control. Medrol dose pack. PLAN: Plan Chronic conditions: Recent history infected AVF: Patient with recent hospitalization secondary to infected AV graft with surgical intervention and antibiotic therapy treatment, encourage continued outpatient follow-up as previously arranged. Chronic Kidney Disease Stage IV with pending HD initiation: Awaiting admission BUN/creatinine, baseline renal function most recently in the 4 range but has vacillated, will plan repeat in a.m. if able, follows with [facility] nephrology. Chronic COPD/asthma: From current list not on any chronic inhalers, will have PRN albuterol, HOB, IS parameters. Hypertension: Continue home regimen including labetalol, PRN hydralazine. Hyperlipidemia: Not on regimen, defer to outpatient. Anxiety and depression/bipolar disorder: Currently only regimen noted per her list is Elavil, will continue although this certainly could be from her chronic neuropathy associate with diabetes as well. Chronic normocytic anemia/AOCD: Still awaiting admission CBC as noted, baseline hemoglobin noted most recently 07/29/2021 9.8, will continue to trend as able, continue iron supplementation. Diabetes mellitus type II with chronic neuropathy: Hold oral home regimen, continue home insulin regimen, ADA diet, accu checks w/ ISS. GERD: We will continue patient home PPI. DVT prophylaxis: Heparin. CODE status: Full code. Charges/Coding Visit Charges Inpatient E&M: 48141 Subs Hosp L2
[2022-09-10] MEDS: Heparin Injection (Vial) 5,000 UNIT/ML VIAL 5000 UNIT SC ×2 (08:13→21:24)
[2022-09-10] MEDS: Pantoprazole Sodium 20 MG Tablet PO (08:15)
[2022-09-10] MEDS: Aspirin E.C. 81 MG Tablet PO (08:15)
[2022-09-10] MEDS: Insulin Lispro 100 UNIT/ML INSULN.PEN SC ×4 (08:15→21:27)
[2022-09-10] MEDS: Labetalol 200 MG Tablet PO (08:15)
[2022-09-10] MEDS: MethylPREDNISolone DosePak 4 MG BOX PO ×4 (08:16→21:24)
[2022-09-10] MEDS: Ferrous Sulfate 325 MG Tablet PO (08:16)
[2022-09-10] MEDS: Gabapentin 100 MG Capsule 200 MG PO ×3 (08:16→16:56)
[2022-09-10] MEDS: 0.9% Saline Lock 10 ML Syringe IV ×2 (09:17→18:18)
[2022-09-10 09:29] LABS: Bedside Glucose 160 mg/dL (74-106)
[2022-09-10] MEDS: oxyCODONE 5 MG Tablet PO (10:45)
[2022-09-10] MEDS: Acetaminophen 325 MG Tablet 650 MG PO (10:46)
[2022-09-10 12:23] LABS: Bedside Glucose 214 mg/dL (74-106)
--- NOTE | 2022-09-10 13:20 | CASEMGMT ---
Discharge Planning SNF list created and given to SW. Elenita Peoples, Discharge Planning Asst.
--- NOTE | 2022-09-10 14:41 | CASEMGMT ---
RICH NAIR note: GRACE NAIR to room. Introduced self and role. Pt states she lives alone and up until about a week ago, she was indep w/ADL's and IADL's. She states w/the pain she is having she is very limited now and states she would not be able to even get into her home and is unable to take care of herself currently. Discussed d/c planning. She states she thinks it would be best to go to a SNF for short-term before returning home. Informed of process of SNF needing to accept and then would need to get insurance approval. Pt voices understanding. A list of SNF providers including quality and resource use data and consistent with the patient?s preferred geographic region, medical needs, and insurance network were provided from the [facility] Guide. Pt to review and to provide top 3 preferences. Jovani BRAUN RN, CM
--- NOTE | 2022-09-10 15:13 | CASEMGMT ---
Discharge Planning SNF choices are as follows; 1-[facility] 2-[facility] 3-[facility]. Patient told that TCU was full. [facility]. Elenita Peoples, Discharge Planning Asst.
--- NOTE | 2022-09-10 16:19 | CASEMGMT ---
Addendum entered by Elenita Peoples 09/11/22 08:55: Patient notified of acceptance. Original Note: Discharge Planning Patient has been accepted by [facility]. Asked for pre-cert to be started. Elenita Peoples, Discharge Planning Asst.
[2022-09-10 17:22] LABS: Bedside Glucose 295 mg/dL (74-106)
[2022-09-10] MEDS: MELATONIN 10 MG TABLET 5 MG PO (21:23)
[2022-09-10] MEDS: Amitriptyline 100 MG Tablet PO (21:23)
[2022-09-10] MEDS: Sertraline 50 MG Tablet PO (21:24)
[2022-09-10 22:18] LABS: Bedside Glucose 214 mg/dL (74-106)
[2022-09-11 02:35] VITALS: BP 120/75; PULSE 78; RESP 16; TEMP 36.6; O2SAT 98
[2022-09-11 05:42] VITALS: BMI 35.4
[2022-09-11 07:33] VITALS: O2SAT 95
[2022-09-11] MEDS: Insulin Lispro 100 UNIT/ML INSULN.PEN SC ×3 (07:54→21:42)
[2022-09-11] MEDS: Heparin Injection (Vial) 5,000 UNIT/ML VIAL 5000 UNIT SC ×2 (07:55→21:40)
[2022-09-11] MEDS: Sertraline 50 MG Tablet PO (07:55)
[2022-09-11] MEDS: Ferrous Sulfate 325 MG Tablet PO (07:55)
[2022-09-11] MEDS: Lidocaine 5% Patch 2 PATCH TOPICAL (07:55)
[2022-09-11] MEDS: Pantoprazole Sodium 20 MG Tablet PO (07:55)
[2022-09-11] MEDS: Labetalol 200 MG Tablet PO (07:55)
[2022-09-11] MEDS: Aspirin E.C. 81 MG Tablet PO (07:55)
[2022-09-11] MEDS: MethylPREDNISolone DosePak 4 MG BOX PO ×4 (07:56→21:41)
[2022-09-11] MEDS: Gabapentin 100 MG Capsule 200 MG PO ×3 (08:04→17:05)
[2022-09-11 08:32] LABS: Bedside Glucose 190 mg/dL (74-106)
--- NOTE | 2022-09-11 08:42 | PCM.PN.HOSP ---
Reason for Visit Reason for Visit: Diagnoses Obesity, unspecified (09/10/22) Pain in right leg (09/10/22) Subjective Subjective Still with pain in RLE, but improving. Objective Data Objective Data Vital Signs: Vital Signs Temp Pulse Resp BP Pulse Ox O2 Del Method 36.6 C 78 16 120/75 95 Room Air 09/11/22 02:35 09/11/22 02:35 09/11/22 02:35 09/11/22 02:35 09/11/22 07:33 09/11/22 08:11 Oxygen Delivery Method Room Air Weight: 105.732 kg Body Mass Index (BMI) 35.4 Intake & Output: Intake and Output for Last 24 Hours 09/09/22 09/10/22 09/11/22 23:59 23:59 23:59 Intake Total 240 / 240 Output Total 850 / 1250 650 / 650 Balance -610 / -1010 -650 / -650 Lab / Micro Data 09/10/22 06:00 09/10/22 06:00 Labs: Laboratory Results - last 24 hr 09/10/22 07:57: POC Glucose 160 H 09/10/22 11:56: POC Glucose 214 H 09/10/22 16:55: POC Glucose 295 H 09/10/22 21:22: POC Glucose 214 H 09/11/22 07:51: POC Glucose 190 H Radiography Diagnostic Testing: Radiology Impression Lumbar Spine MRI 09/10/22 05:55 IMPRESSION: 1. No MRI evidence of lumbar extruded disc fragment or disc protrusion. 2. Moderate central canal stenosis at L3-L4 disc space level with an AP canal diameter of 8 mm, mild stenosis of the right intervertebral neural foramen and small posterior bulging annulus. 3. Moderate L2-L3 intervertebral osteochondritis (Modic type I), small posterior bulging annulus and mild central canal stenosis with an AP canal diameter of 9 mm. Electronically Signed: Raymon Goetz MD at 11:49 EDT , Physical Exam Const alert and no apparent distress HEENT head/scalp atraumatic Extremity Extremity Narrative: TTP over medial right knee, particularly distal to knee. No knee effusion. No erythema. Assessment & Plan Assessment/Plan (1) Right leg pain: PLAN: Acute Intractable RLE Pain with radiculopathy: Plain film of the right hip in the ED and recent right knee plain film not marked appearing although notable chronic disease, pending Studies: CT lumbar spine: Since prior study, 8 years ago there there is interval greater degenerative change particularly at the level of L2-L3 with areas visualized interval deep Schmorl''s node or disc disease especially involving the inferior endplate with moderate neural foramina narrowing mild to moderate central stenosis at the level of L2-3 L4-L5. When appropriate. Consider follow-up MRI. No visualized acute loss of height or alignment. Overdistended bladder recommend voiding and/or catheterization. Recommend pre and post void imaging if appropriate. MRI: Moderate central canal stenosis at L3-L4, mild stenosis of right intervertebral neural foramen and small posterior bulging annulus. Moderate L2-3 intervertebral osteochondritis posterior bulging annulus and mild central canal stenosis. Through [facility]: duplex on 09/09 showed SVT on left small saphenous vein near the saphenofemoral junction Pain control. Medrol dose pack. PLAN: Plan Chronic conditions: Recent history infected AVF: Patient with recent hospitalization secondary to infected AV graft with surgical intervention and antibiotic therapy treatment, encourage continued outpatient follow-up as previously arranged. Chronic Kidney Disease Stage IV with pending HD initiation: Awaiting admission BUN/creatinine, baseline renal function most recently in the 4 range but has vacillated, will plan repeat in a.m. if able, follows with [facility] nephrology. Chronic COPD/asthma: From current list not on any chronic inhalers, will have PRN albuterol, HOB, IS parameters. Hypertension: Continue home regimen including labetalol, PRN hydralazine. Hyperlipidemia: Not on regimen, defer to outpatient. Anxiety and depression/bipolar disorder: Currently only regimen noted per her list is Elavil, will continue although this certainly could be from her chronic neuropathy associate with diabetes as well. Chronic normocytic anemia/AOCD: Still awaiting admission CBC as noted, baseline hemoglobin noted most recently 07/29/2021 9.8, will continue to trend as able, continue iron supplementation. Diabetes mellitus type II with chronic neuropathy: Hold oral home regimen, continue home insulin regimen, ADA diet, accu checks w/ ISS. GERD: We will continue patient home PPI. DVT prophylaxis: Heparin. CODE status: Full code. Disposition: to [facility] pending insurance authorization. Charges/Coding Visit Charges Inpatient E&M: 05065 Subs Hosp L1
[2022-09-11 09:00] VITALS: BP 136/62; PULSE 90; RESP 18; TEMP 36.3; O2SAT 98
--- NOTE | 2022-09-11 10:38 | TREXTCAR_ITS ---
Diet Diet Order/Speech Therapy: 09/10/22 04:37 Diet: Consistent Carb - Calorie Controlled Food consistency:: Regular Liquid Consistency:: Regular/Thin How many daily calories?: 1800 calorie Routine Orders/Code Status Routine Lab Work: BMP Code Status: Full Code Therapies Weight Bearing: Full weight bearing Extremity Affected:: Right Lower Physical Therapy: Eval and Treat Occupational Therapy: Eval and Treat Problem/Diagnosis (1) Right leg pain: Status: Acute Code(s): M79.604 - Pain in right leg Plan: Acute Intractable RLE Pain with radiculopathy: Plain film of the right hip in the ED and recent right knee plain film not marked appearing although notable chronic disease, pending Studies: * CT lumbar spine: Since prior study, 8 years ago there there is interval greater degenerative change particularly at the level of L2-L3 with areas visualized interval deep Schmorl''s node or disc disease especially involving the inferior endplate with moderate neural foramina narrowing mild to moderate central stenosis at the level of L2-3 L4-L5. When appropriate. Consider follow-up MRI. No visualized acute loss of height or alignment. Overdistended bladder recommend voiding and/or catheterization. Recommend pre and post void imaging if appropriate. * MRI: Moderate central canal stenosis at L3-L4, mild stenosis of right intervertebral neural foramen and small posterior bulging annulus. Moderate L2-3 intervertebral osteochondritis posterior bulging annulus and mild central canal stenosis. * Through [facility]: duplex on 09/09 showed SVT on left small saphenous vein near the saphenofemoral junction Pain control. Medrol dose pack. Plan Chronic conditions: * Recent history infected AVF: Patient with recent hospitalization secondary to infected AV graft with surgical intervention and antibiotic therapy treatment, encourage continued outpatient follow-up as previously arranged. * Chronic Kidney Disease Stage IV with pending HD initiation: Awaiting admission BUN/creatinine, baseline renal function most recently in the 4 range but has vacillated, will plan repeat in a.m. if able, follows with [facility] nephrology. * Chronic COPD/asthma: From current list not on any chronic inhalers, will have PRN albuterol, HOB, IS parameters. * Hypertension: Continue home regimen including labetalol, PRN hydralazine. * Hyperlipidemia: Not on regimen, defer to outpatient. * Anxiety and depression/bipolar disorder: Currently only regimen noted per her list is Elavil, will continue although this certainly could be from her chronic neuropathy associate with diabetes as well. * Chronic normocytic anemia/AOCD: Still awaiting admission CBC as noted, baseline hemoglobin noted most recently 07/29/2021 9.8, will continue to trend as able, continue iron supplementation. * Diabetes mellitus type II with chronic neuropathy: Hold oral home regimen, continue home insulin regimen, ADA diet, accu checks w/ ISS. * GERD: We will continue patient home PPI. DVT prophylaxis: Heparin. CODE status: Full code. Disposition: to [facility] pending insurance authorization. Allergies/Procedures Done in Hospital Allergies balsam carin Allergy (Unknown, Verified 09/10/22 04:56) UNKNOWN mold Allergy (Unknown, Verified 09/10/22 04:30) unknown vanilla extract flavor Allergy (Unknown, Verified 09/10/22 04:30) unknown lisinopril Allergy (Verified 09/10/22 04:30) unknown x Penicillins Allergy (Verified 09/10/22 04:30) Anaphylaxis tetracycline [Tetracycline] Allergy (Verified 09/10/22 04:30) Anaphylaxis codeine Adverse Reaction (Verified 09/10/22 04:30) Abd cramps/diarrhea diphenhydramine HCl [From Benadryl] Adverse Reaction (Verified 09/10/22 04:30) Upset Stomach hydrocodone bitartrate [From Vicodin] Adverse Reaction (Verified 09/10/22 04:30) Abd cramps/diarrhea NSAIDS (Non-Steroidal Anti-Inflamma Adverse Reaction (Verified 09/10/22 04:30) Unknown Type of Care/Length of Stay Estimated LOS: Convalescent Care Less Than 30 days Type of Care Needed: Skilled Rehab Potential: Fair Prognosis: Good Additional Orders/Day of Discharge Day of Discharge: 09/11/22 Discharge Plan Admission Admit Date/Time: 09/10/22 02:13 Primary Reason for Your Visit: right leg pain. debility Attending Provider: Sylvester Ortiz Primary Care Provider: Aki Archibald Consulting Providers: Lizzy Bragg Instructions Additional Instructions / Restrictions: Follow up with [facility]ph[facility]. Discharge Orders/Prescriptions Prescriptions: New acetaminophen 325 mg Tablet 650 mg PO Q4H PRN PRN (Reason: Fever, pain 1-12/09) Qty: 0 0RF insulin lispro [Humalog KwikPen Insulin] 100 unit/mL Insulin Pen See Protocol subcut ACHS Qty: 0 0RF Protocol: 3. Sliding Scale Insulin Med Dosing Condition: 150-189 mg/dl = 1 unit Condition: 190-229 mg/dl = 2 units Condition: 230-269 mg/dl = 3 units Condition: 270-309 mg/dl = 4 units Condition: 310-349 mg/dl = 5 units Condition: 350-399 mg/dl = 6 units Condition: 400-449 mg/dl = 7 units Condition: Greater than 449 call physician Protocol Text: - Use for Total Daily Dose of Insulin 37-55 units - Obsese, infected, or steroid patients MEDIUM DOSING ALGORITHIM lidocaine 5 % Adhesive Patch,Medicated 2 patch topical DAILY Qty: 0 0RF Protocol: *Topical Application Instructions APPLICATION INSTRUCTIONS: R hip, R knee methylprednisolone 4 mg Tablets,Dose Pack 4 mg PO 0800,1200,1700 Qty: 0 0RF oxycodone 5 mg Tablet 5 mg PO Q4H PRN PRN (Reason: Pain Score 4-10) 3 Days Qty: 12 0RF Remove Patch 1 patch topical DAILY@2200 Qty: 0 0RF Continued cholecalciferol (vitamin D3) [Vitamin D3] 1,000 UNIT capsule 5,000 unit PO DAILY omeprazole 20 MG capsule 20 mg PO DAILY labetalol 200 MG tablet 200 mg PO BID glipizide 5 MG tablet 10 mg PO DAILY aspirin [Aspir-Low] 81 MG tablet,delayed release (DR/EC) 81 mg PO DAILY melatonin 5 MG capsule 5 mg PO QHS ferrous sulfate [Iron (ferrous sulfate)] 325 MG tablet 325 mg PO DAILY Elavil 1 tab PO DAILY atorvastatin 40 mg tablet 40 mg PO QHS calcitriol 0.25 mcg capsule 0.25 mcg PO BID Trulicity 1.5 mg/0.5 mL pen injector SUBCUT .every thursday sevelamer HCl 800 mg tablet 1,600 mg PO QHS sodium bicarbonate 650 mg tablet 650 mg PO QHS Eliquis 2.5 mg tablet 2.5 mg PO BID sertraline 50 mg tablet 50 mg PO QHS hydroxyzine HCl 50 mg tablet 50 mg PO Q6H PRN (Reason: itching) amitriptyline 100 mg tablet 100 mg PO QHS Discontinued Vitamin 1 EACH tablet 1 ea PO DAILY Oxaydo 5 mg tablet, oral only 5 mg PO Q8H PRN (Reason: pain) hydrocodone-acetaminophen 5-325 mg tablet 1 tab PO Q6H PRN (Reason: pain) 3 Days Qty: 12 0RF Referrals / Follow Up: Aki Archibald MD [Primary Care Provider] - Within 2 Weeks Disposition Disposition (needs filled in before D/C Order can be placed): Assisted Facility
[2022-09-11] MEDS: oxyCODONE 5 MG Tablet PO (11:23)
[2022-09-11] MEDS: Acetaminophen 325 MG Tablet 650 MG PO (11:23)
[2022-09-11 11:52] LABS: Bedside Glucose 175 mg/dL (74-106)
[2022-09-11] MEDS: 0.9% Saline Lock 10 ML Syringe IV (13:06)
[2022-09-11] MEDS: Ondansetron 4 MG/2 ML Vial IV (13:06)
[2022-09-11 14:08] VITALS: BP 141/59; PULSE 88; RESP 18; TEMP 36.8; O2SAT 95
--- NOTE | 2022-09-11 15:48 | CHAPLAIN ---
Type of Pastoral Visit _x__ Initial Visit ___ Follow-up Visit ___ On-call Visit ___ General Patient Visit ___ Spiritual Assessment ___ Family Conference ___ Bereavement ___ Rapid Response ___ Code Blue ___ Other (describe below) Pastoral Care Referral From _x__ Patient ___ Family ___ Nurse ___ Physician ___ Manager Communication ___ Investment Analyst ___ Other (describe below) Sacrament/Intervention _x__ Active listening ___ Anointing ___ Zoroastrianism ___ Bereavement ___ Communion ___ Isi exploration ___ _x__ Life review _x__ Prayer ___ Reconciliation ___ Sacrament of Sick _x__ Supportive presence ___ Wedding ___ Other (describe below) Pastoral Comments patient describes her situation and her next step of going to ECF; pt states she is not concerned about these and is used to this; pt has some family support; pt welcomes presence and prayer for her support
[2022-09-11 16:45] LABS: Bedside Glucose 146 mg/dL (74-106)
[2022-09-11 20:30] VITALS: BP 151/79; PULSE 90; RESP 18; TEMP 36.5; O2SAT 97
[2022-09-11] MEDS: MELATONIN 10 MG TABLET 5 MG PO (21:40)
[2022-09-11] MEDS: Amitriptyline 100 MG Tablet PO (21:41)
[2022-09-11 22:30] LABS: Bedside Glucose 196 mg/dL (74-106)
[2022-09-12 02:20] VITALS: BP 134/78; PULSE 75; RESP 16; TEMP 36.6; O2SAT 98
[2022-09-12 06:00] VITALS: BMI 35.4
[2022-09-12 07:19] VITALS: BP 165/64; PULSE 90; RESP 16; TEMP 36.7; O2SAT 97
--- NOTE | 2022-09-12 07:52 | PN.HOSP_ITS ---
Reason for Visit Reason for Visit: Diagnoses Obesity, unspecified (09/10/22) Pain in right leg (09/10/22) Subjective Subjective Complains of pain in medial knee and goes down to her foot when she stands. She cannot walk. Objective Data Objective Data Vital Signs: Vital Signs Temp Pulse Resp BP Pulse Ox O2 Del Method 36.7 C 90 16 165/64 H 97 Room Air 09/12/22 07:19 09/12/22 07:19 09/12/22 07:19 09/12/22 07:19 09/12/22 07:19 09/12/22 07:19 Oxygen Delivery Method Room Air Weight: 105.687 kg Body Mass Index (BMI) 35.4 Intake & Output: Intake and Output for Last 24 Hours 09/10/22 09/11/22 09/12/22 23:59 23:59 23:59 Intake Total 240 / 240 240 / 240 Output Total 850 / 1250 1550 / 2650 1400 / 1400 Balance -610 / -1010 -1310 / -2410 -1400 / -1400 Lab / Micro Data 09/10/22 06:00 09/10/22 06:00 Labs: Laboratory Results - last 24 hr 09/11/22 07:51: POC Glucose 190 H 09/11/22 11:26: POC Glucose 175 H 09/11/22 16:22: POC Glucose 146 H 09/11/22 21:38: POC Glucose 196 H Physical Exam Const alert and no apparent distress Extremity normal to inspection Extremity Narrative: pain with palpation of right medial knee, but no obvious lesion. pain with pressure applied to her right heel, but she appeared in no distress. Assessment & Plan Assessment/Plan (1) Right leg pain: PLAN: Acute Intractable RLE Pain with radiculopathy: Plain film of the right hip in the ED and recent right knee plain film not lisa ed appearing although notable chronic disease, pending Studies: * CT lumbar spine: Since prior study, 8 years ago there there is interval greater degenerative change particularly at the level of L2-L3 with areas visualized interval deep Schmorl''s node or disc disease especially involving the inferior endplate with moderate neural foramina narrowing mild to moderate central stenosis at the level of L2-3 L4-L5. When appropriate. Consider follow-up MRI. No visualized acute loss of height or alignment. Overdistended bladder recommend voiding and/or catheterization. Recommend pre and post void imaging if appropriate. * MRI: Moderate central canal stenosis at L3-L4, mild stenosis of right intervertebral neural foramen and small posterior bulging annulus. Moderate L2-3 intervertebral osteochondritis posterior bulging annulus and mild central canal stenosis. * Through [facility]: duplex on 09/09 showed SVT on left small saphenous vein near the saphenofemoral junction * Check CT leg Pain control. Medrol dose pack. No definitive etiology of her pain is identified. Will check CT of leg w/o contrast to see if there is an occult fracture. PLAN: Plan Chronic conditions: * Recent history infected AVF: Patient with recent hospitalization secondary to infected AV graft with surgical intervention and antibiotic therapy treatment, encourage continued outpatient follow-up as previously arranged. * Chronic Kidney Disease Stage IV with pending HD initiation: Awaiting admission BUN/creatinine, baseline renal function most recently in the 4 range but has vacillated, will plan repeat in a.m. if able, follows with [facility] nephrology. * Chronic COPD/asthma: From current list not on any chronic inhalers, will have PRN albuterol, HOB, IS parameters. * Hypertension: Continue home regimen including labetalol, PRN hydralazine. * Hyperlipidemia: Not on regimen, defer to outpatient. * Anxiety and depression/bipolar disorder: Currently only regimen noted per her list is Elavil, will continue although this certainly could be from her chronic neuropathy associate with diabetes as well. * Chronic normocytic anemia/AOCD: Still awaiting admission CBC as noted, baseline hemoglobin noted most recently 07/29/2021 9.8, will continue to trend as able, continue iron supplementation. * Diabetes mellitus type II with chronic neuropathy: Hold oral home regimen, continue home insulin regimen, ADA diet, accu checks w/ ISS. * GERD: We will continue patient home PPI. DVT prophylaxis: Heparin. CODE status: Full code. Disposition: to [facility] pending CT Charges/Coding Visit Charges Inpatient E&M: 30842 Subs Hosp L1
[2022-09-12 07:55] LABS: Bedside Glucose 188 mg/dL (74-106)
[2022-09-12] MEDS: Insulin Lispro 100 UNIT/ML INSULN.PEN SC ×2 (08:28→11:30)
[2022-09-12] MEDS: MethylPREDNISolone DosePak 4 MG BOX PO ×2 (08:30→13:24)
[2022-09-12] MEDS: Ferrous Sulfate 325 MG Tablet PO (08:30)
[2022-09-12] MEDS: Aspirin E.C. 81 MG Tablet PO (08:30)
[2022-09-12] MEDS: Labetalol 200 MG Tablet PO (08:31)
[2022-09-12] MEDS: Gabapentin 100 MG Capsule 200 MG PO ×2 (08:34→13:28)
--- NOTE | 2022-09-12 08:58 | CT_ITS ---
CT RIGHT LOWER EXTREMITY WITH 3-D IMAGING. Right tibia and fibula. CLINICAL INDICATION: right leg pain. AV graft infection. TECHNIQUE: Axial CT images of the RIGHT lower extremity was performed without IV contrast material. Coronal and sagittal reformats were provided. RADIATION DOSAGE (If Supplied By Facility): CTDIvol = ( 10.75 ) mGy, DLP = ( 639.94 ) mGycm COMPARISON: FINDINGS: Bones: Osseous structures are normal without evidence of fracture or dislocation. No lytic or blastic osseous masses. Soft Tissues: Small knee joint effusion. Mild degree of subcutaneous edema involving the medial posterior aspect of the lower leg. No abscess collection is seen. No evidence of focal bony destruction. Is evidence of dense atherosclerotic calcification of the visualized arteries. CT/Extremity Lower without Contra IMPRESSION: Dense vascular calcification of the visualized arteries in the right lower extremity. No evidence of abscess formation. Subcutaneous edema involving the inferior medial aspect of the lower leg. Electronically Signed: Piter Dietrich MD at 9:54 EDT ,
[2022-09-12] MEDS: Heparin Injection (Vial) 5,000 UNIT/ML VIAL 5000 UNIT SC (09:42)
[2022-09-12] MEDS: Pantoprazole Sodium 20 MG Tablet PO (09:43)
[2022-09-12] MEDS: Lidocaine 5% Patch 2 PATCH TOPICAL (09:43)
[2022-09-12] MEDS: Acetaminophen 325 MG Tablet 650 MG PO (10:21)
[2022-09-12 11:20] VITALS: O2SAT 97
--- NOTE | 2022-09-12 11:43 | DS.PCM_ITS ---
Providers Date of Admission: 09/10/22 Primary Care Physician: Dr. Aki Archibald MD Reason For Visit: RLE INTRACTABLE PAIN Diagnosis Discharge Diagnosis (1) Right leg pain: Status: Acute Code(s): M79.604 - Pain in right leg Plan: Acute Intractable RLE Pain with radiculopathy: Plain film of the right hip in the ED and recent right knee plain film not marked appearing although notable chronic disease, pending Studies: * CT lumbar spine: Since prior study, 8 years ago there there is interval great er degenerative change particularly at the level of L2-L3 with areas visualized interval deep Schmorl''s node or disc disease especially involving the inferior endplate with moderate neural foramina narrowing mild to moderate central stenosis at the level of L2-3 L4-L5. When appropriate. Consider fo llow-up MRI. No visualized acute loss of height or alignment. Overdistended bladder recommend voiding and/or catheterization. Recommend pre and post void imaging if appropriate. * MRI: Moderate central canal stenosis at L3-L4, mild stenosis of right intervertebral neural foramen and small posterior bulging annulus. Moderate L2-3 intervertebral osteochondritis posterior bulging annulus and mild central canal stenosis. * Through [facility]: duplex on 09/09 showed SVT on left small saphenous vein near the saphenofemoral junction * CT leg showed dense vascular calcification of arteries. No abscess. SQ edema inferior medical aspect of the lower leg. Pain control. Medrol dose pack. No definitive etiology of her pain is identified. Will check CT of leg w/o con trast to see if there is an occult fracture. No clinical evidence of cellulitis, no treatment at this time. Plan Chronic conditions: * Recent history infected AVF: Patient with recent hospitalization secondary to infected AV graft with surgical intervention and antibiotic therapy treatment, encourage continued outpatient follow-up as previously arranged. * Chronic Kidney Disease Stage IV with pending HD initiation: Awaiting admission BUN/creatinine, baseline renal function most recently in the 4 range but has vacillated, will plan repeat in a.m. if able, follows with [facility] nephrology. * Chronic COPD/asthma: From current list not on any chronic inhalers, will have PRN albuterol, HOB, IS parameters. * Hypertension: Continue home regimen including labetalol, PRN hydralazine. * Hyperlipidemia: Not on regimen, defer to outpatient. * Anxiety and depression/bipolar disorder: Currently only regimen noted per her list is Elavil, will continue although this certainly could be from her chronic neuropathy associate with diabetes as well. * Chronic normocytic anemia/AOCD: Still awaiting admission CBC as noted, baseline hemoglobin noted most recently 07/29/2021 9.8, will continue to trend as able, continue iron supplementation. * Diabetes mellitus type II with chronic neuropathy: Hold oral home regimen, continue home insulin regimen, ADA diet, accu checks w/ ISS. * GERD: We will continue patient home PPI. DVT prophylaxis: Heparin. CODE status: Full code. Disposition: to [facility] Medications at Discharge Home Medications cholecalciferol (vitamin D3) 25 mcg (1,000 unit) capsule (Vitamin D3) 5,000 unit PO DAILY 10/03/13 omeprazole 20 mg capsule,delayed release 20 mg PO DAILY 08/23/14 glipizide 5 mg tablet 10 mg PO DAILY 04/28/15 labetalol 200 mg tablet 200 mg PO BID 04/28/15 aspirin 81 mg tablet,delayed release (Aspir-Low) 81 mg PO DAILY 05/27/16 melatonin 5 mg capsule 5 mg PO QHS 05/27/16 ferrous sulfate 325 mg (65 mg iron) tablet (Iron (ferrous sulfate)) 325 mg PO DAILY 11/25/16 Elavil 1 tab PO DAILY 11/12/17 amitriptyline 100 mg tablet 100 mg PO QHS sleep 09/10/22 apixaban 2.5 mg tablet (Eliquis) 2.5 mg PO BID 09/10/22 atorvastatin 40 mg tablet 40 mg PO QHS hyperlipidemia 09/10/22 calcitriol 0.25 mcg capsule 0.25 mcg PO BID 09/10/22 dulaglutide 1.5 mg/0.5 mL subcutaneous pen injector (Trulicity) mg subcut .every thursday diabetes 09/10/22 hydroxyzine HCl 50 mg tablet 50 mg PO Q6H PRN itching 09/10/22 sertraline 50 mg tablet 50 mg PO QHS bipolar 09/10/22 sevelamer HCl 800 mg tablet 1,600 mg PO QHS 09/10/22 sodium bicarbonate 650 mg tablet 650 mg PO QHS 09/10/22 Remove Patch 1 patch topical DAILY@2199 ##0 09/11/22 acetaminophen 325 mg tablet 650 mg (2 x 325 mg) PO Q4H PRN PRN Fever, pain 1- 10 #0 tabs 09/11/22 insulin lispro 100 unit/mL subcutaneous pen (Humalog KwikPen (U-100) Insulin) See Protocol subcut ACHS #0 mL 09/11/22 lidocaine 5 % topical patch 2 patch topical DAILY #0 ea 09/11/22 methylprednisolone 4 mg tablets in a dose pack 4 mg PO 0800,1200,1700 #0 tabs 09/11/22 oxycodone 5 mg tablet 5 mg PO Q4H PRN PRN Pain Score 4-10 3 days #12 tabs 09/11/22 Hospital Course Operations None Procedures None Summary of Care Provided Minutes Spent on Discharge: 32 Weight / BMI Weight Weight: 105.687 kg Body Mass Index (BMI) 35.4 ABG / Lab / Microbiology Data 09/10/22 06:00 09/10/22 06:00 Laboratory: Laboratory Results - last 24 hr 09/11/22 11:26: POC Glucose 175 H 09/11/22 16:22: POC Glucose 146 H 09/11/22 21:38: POC Glucose 196 H 09/12/22 07:36: POC Glucose 188 H Radiography Diagnostic Testing: Radiology Impression Lower Extremity CT 09/12/22 08:58 IMPRESSION: Dense vascular calcification of the visualized arteries in the right lower extremity. No evidence of abscess formation. Subcutaneous edema involving the inferior medial aspect of the lower leg. Electronically Signed: Piter Dietrich MD at 9:54 EDT Reading Location ID and State: [facility] / [place] , Service support , Meaningful Use Info Meaningful Use Diagnoses (Choose all that apply): None applicable Discharge Plan Admission Admit Date/Time: 09/10/22 02:13 Primary Reason for Your Visit: right leg pain. debility Attending Provider: Sylvester Ortiz Primary Care Provider: Aki Archibald Consulting Providers: Lizzy Bragg Instructions Additional Instructions / Restrictions: Follow up with [facility] Nephrology. Discharge Orders/Prescriptions Prescriptions: New acetaminophen 325 mg Tablet 650 mg PO Q4H PRN PRN (Reason: Fever, pain 1-10) Qty: 0 0RF insulin lispro [Humalog KwikPen Insulin] 100 unit/mL Insulin Pen See Protocol subcut ACHS Qty: 0 0RF Protocol: 3. Sliding Scale Insulin Med Dosing Condition: 150-189 mg/dl = 1 unit Condition: 190-229 mg/dl = 2 units Condition: 230-269 mg/dl = 3 units Condition: 270-309 mg/dl = 4 units Condition: 310-349 mg/dl = 5 units Condition: 350-399 mg/dl = 6 units Condition: 400-449 mg/dl = 7 units Condition: Greater than 449 call physician Protocol Text: - Use for Total Daily Dose of Insulin 37-55 units - Obsese, infected, or steroid patients MEDIUM DOSING ALGORITHIM lidocaine 5 % Adhesive Patch,Medicated 2 patch topical DAILY Qty: 0 0RF Protocol: *Topical Application Instructions APPLICATION INSTRUCTIONS: R hip, R knee methylprednisolone 4 mg Tablets,Dose Pack 4 mg PO 0800,1200,1700 Qty: 0 0RF oxycodone 5 mg Tablet 5 mg PO Q4H PRN PRN (Reason: Pain Score 4-10) 3 Days Qty: 12 0RF Remove Patch 1 patch topical DAILY@2200 Qty: 0 0RF Continued cholecalciferol (vitamin D3) [Vitamin D3] 1,000 UNIT capsule 5,000 unit PO DAILY omeprazole 20 MG capsule 20 mg PO DAILY labetalol 200 MG tablet 200 mg PO BID glipizide 5 MG tablet 10 mg PO DAILY aspirin [Aspir-Low] 81 MG tablet,delayed release (DR/EC) 81 mg PO DAILY melatonin 5 MG capsule 5 mg PO QHS ferrous sulfate [Iron (ferrous sulfate)] 325 MG tablet 325 mg PO DAILY Elavil 1 tab PO DAILY atorvastatin 40 mg tablet 40 mg PO QHS calcitriol 0.25 mcg capsule 0.25 mcg PO BID Trulicity 1.5 mg/0.5 mL pen injector SUBCUT .every thursday sevelamer HCl 800 mg tablet 1,600 mg PO QHS sodium bicarbonate 650 mg tablet 650 mg PO QHS Eliquis 2.5 mg tablet 2.5 mg PO BID sertraline 50 mg tablet 50 mg PO QHS hydroxyzine HCl 50 mg tablet 50 mg PO Q6H PRN (Reason: itching) amitriptyline 100 mg tablet 100 mg PO QHS Discontinued Vitamin 1 EACH tablet 1 ea PO DAILY Oxaydo 5 mg tablet, oral only 5 mg PO Q8H PRN (Reason: pain) hydrocodone-acetaminophen 5-325 mg tablet 1 tab PO Q6H PRN (Reason: pain) 3 Days Qty: 12 0RF Referrals / Follow Up: Aki Archibald MD [Primary Care Provider] - Within 2 Weeks Disposition Disposition (needs filled in before D/C Order can be placed): Shelter Facility Charges/Coding Visit Charges Inpatient E&M: 82719 Disch Hosp >30min
--- NOTE | 2022-09-12 12:31 | PHA.DC_ITS ---
Pharmacy [place] Med Reconciliation Pharmacy Service has performed discharge medication reconciliation for this patient upon transfer to [facility]. The patient's discharge medication list was reviewed for discrepancies and discrepancies were resolved. Medications at Discharge Home Medications cholecalciferol (vitamin D3) 25 mcg (1,000 unit) capsule (Vitamin D3) 5,000 unit PO DAILY 10/03/13 omeprazole 20 mg capsule,delayed release 20 mg PO DAILY 08/23/14 glipizide 5 mg tablet 10 mg PO DAILY 04/28/15 labetalol 200 mg tablet 200 mg PO BID 04/28/15 aspirin 81 mg tablet,delayed release (Aspir-Low) 81 mg PO DAILY 05/27/16 melatonin 5 mg capsule 5 mg PO QHS 05/27/16 ferrous sulfate 325 mg (65 mg iron) tablet (Iron (ferrous sulfate)) 325 mg PO DAILY 11/25/16 Elavil 1 tab PO DAILY 11/12/17 amitriptyline 100 mg tablet 100 mg PO QHS sleep 09/10/22 apixaban 2.5 mg tablet (Eliquis) 2.5 mg PO BID 09/10/22 atorvastatin 40 mg tablet 40 mg PO QHS hyperlipidemia 09/10/22 calcitriol 0.25 mcg capsule 0.25 mcg PO BID 09/10/22 dulaglutide 1.5 mg/0.5 mL subcutaneous pen injector (Trulicity) mg subcut .every thursday diabetes 09/10/22 hydroxyzine HCl 50 mg tablet 50 mg PO Q6H PRN itching 09/10/22 sertraline 50 mg tablet 50 mg PO QHS bipolar 09/10/22 sevelamer HCl 800 mg tablet 1,600 mg PO QHS 09/10/22 sodium bicarbonate 650 mg tablet 650 mg PO QHS 09/10/22 Remove Patch 1 patch topical DAILY@220 ##0 09/11/22 acetaminophen 325 mg tablet 650 mg (2 x 325 mg) PO Q4H PRN PRN Fever, pain 1- 12/09 #0 tabs 09/11/22 insulin lispro 100 unit/mL subcutaneous pen (Humalog KwikPen (U-100) Insulin) See Protocol subcut ACHS #0 mL 09/11/22 lidocaine 5 % topical patch 2 patch topical DAILY #0 ea 09/11/22 methylprednisolone 4 mg tablets in a dose pack 4 mg PO 0800,1200,1700 #0 tabs 09/11/22 oxycodone 5 mg tablet 5 mg PO Q4H PRN PRN Pain Score 4-10 3 days #12 tabs 09/11/22
--- NOTE | 2022-09-12 12:53 | CASEMGMT ---
Discharge Planning Discharge orders, signed med list, and transport time sent to [facility] via [facility]. [facility] will transport patient by cot at 3:30p. Patient, SW, and nursing notified. Patient will notify her sister. Elenita Peoples, Discharge Planning Asst.
[2022-09-12 13:32] VITALS: BP 156/54; PULSE 88; RESP 16; TEMP 36.7; O2SAT 99
[2022-09-12 13:37] LABS: Bedside Glucose 181 mg/dL (74-106)
== END 2022-09-12 16:12 | disposition skilled nursing facility (03) ==
LOC: ED 09-10 03:07 → MS3 09-10 03:13
PROVIDERS: Admitting Provider Family Medicine; Emergency Provider Emergency Medicine; PCP Family Medicine
DX: M47.20 Other spondylosis with radiculopathy, site unspecified (principal); J44.9 Chronic obstructive pulmonary disease, unspecified; F31.9 Bipolar disorder, unspecified; E11.22 Type 2 diabetes mellitus with diabetic chronic kidney disease; E11.40 Type 2 diabetes mellitus with diabetic neuropathy, unspecified; N18.4 Chronic kidney disease, stage 4 (severe); I47.1 Supraventricular tachycardia; R53.81 Other malaise; Z79.84 Long term (current) use of oral hypoglycemic drugs; M16.11 Unilateral primary osteoarthritis, right hip; F41.9 Anxiety disorder, unspecified; M85.80 Other specified disorders of bone density and structure, unspecified site; I12.9 Hypertensive chronic kidney disease with stage 1 through stage 4 chronic kidney disease, or unspecified chronic kidney disease; E66.9 Obesity, unspecified; Z79.82 Long term (current) use of aspirin; E78.5 Hyperlipidemia, unspecified; D64.9 Anemia, unspecified; R26.2 Difficulty in walking, not elsewhere classified; M48.061 Spinal stenosis, lumbar region without neurogenic claudication; Z87.891 Personal history of nicotine dependence; Z79.899 Other long term (current) drug therapy; Z98.84 Bariatric surgery status; Z68.34 Body mass index [BMI] 34.0-34.9, adult; M79.7 Fibromyalgia; D63.8 Anemia in other chronic diseases classified elsewhere; K21.9 Gastro-esophageal reflux disease without esophagitis
CPT/HCPCS: 36415; 72131; 72148; 73502; 73700; 80048; 80053; 82962; 83605; 83735; 84100; 85025; 85652; 86140; 94668; 96372; 96374; 96375; 96376; 97162; 97166; 97530; 97535; 99221; 99283; A4216; G0378; J2405

== ENCOUNTER → 2022-09-15 | Outpatient (REF) | payer BC, SELFPAY ==
[2022-09-15 08:11] LABS: Absolute Neutrophil Count 4.2 X10^3/uL (2.0-7.7); Basophil# 0.03 X10^3/uL; Basophil% 0.5 % (0-1); Eosinophils% 4.6 % (0-5); Hematocrit 25.6 % (37-47); Hemoglobin 7.7 g/dL (12.0-15.0); Lymphocyte % 22.9 % (19-41); Mean Corp Hgb Conc 30.1 g/dL (32-36); Mean Corpuscular Hgb 30.8 pg (27.0-32.0); Mean Corpuscular Volume 102.4 fL (81-99); Mean Platelet Vol. 9.8 fl (6.2-12.0); Monocyte# 0.44 X10^3/uL; Monocyte% 6.7 % (0-10); NRBC Flagged by Analyzer 0 % (0-5); Neutrophil # 4.24 X10^3/uL (2.7-7.7); Neutrophil % 64.7 % (47-70); Platelet Count 150 K/mm3 (150-450); RBC Distribution Width CV 12.8 % (11.6-14.6); RBC Distribution Width SD 47.8 fl (35.1-43.9); White Blood Count 6.6 K/mm3 (4.4-11.0)
[2022-09-15 08:32] LABS: Vitamin B12 416 pg/mL (211-911); Vitamin D,25 Hydroxy 54.4 ng/mL
[2022-09-15 08:34] LABS: ALB/GLOB Ratio 0.8 RATIO (0.9-2.4); AST(SGOT) 16 U/L (15-37); Alanine Aminotransfer ALT/SGPT 17 U/L (13-56); Albumin, Serum 2.4 g/dL (3.2-5.0); Alkaline Phosphatase 71 U/L (45-117); Anion Gap 7 (5-15); BUN 69 mg/dL (7-18); Chloride 111 mmol/L (98-107); Creatinine, Serum 5.73 mg/dL (0.55-1.02); EST Glomerular Filtration Rate 8 mL/min (>60); Est Glom Filt Rate - Afr Amer 10 mL/min (>60); Glucose 147 mg/dL (74-106); Hemoglobin A1c 7.5 % (3.8-5.6); Potassium 5.4 mmol/L (3.5-5.1); Protein, Total 5.4 g/dL (6.4-8.2); Sodium Level 136 mmol/L (136-145)
== END ==
LOC: OLS.SW 04:00
PROVIDERS: PCP Family Medicine; Referring Provider Internal Medicine; Visit Provider Internal Medicine
DX: M79.604 Pain in right leg (principal); N18.9 Chronic kidney disease, unspecified; E11.22 Type 2 diabetes mellitus with diabetic chronic kidney disease; E83.51 Hypocalcemia
CPT/HCPCS: 36415; 80053; 82306; 82607; 83036; 85025

== ENCOUNTER → 2022-09-17 | Outpatient (REF) | payer MEDICARE, SELFPAY ==
[2022-09-17 10:36] LABS: Anion Gap 11 (5-15); BUN 73 mg/dL (7-18); BUN/Creat Ratio 12.4 RATIO (10-20); Calcium,Total 8.3 mg/dL (8.5-10.1); Chloride 112 mmol/L (98-107); Creatinine, Serum 5.88 mg/dL (0.55-1.02); EST Glomerular Filtration Rate 8 mL/min (>60); Est Glom Filt Rate - Afr Amer 10 mL/min (>60); Glucose 98 mg/dL (74-106); Potassium 4.9 mmol/L (3.5-5.1); Sodium Level 141 mmol/L (136-145)
== END ==
LOC: OLS.SW 05:00
PROVIDERS: PCP Family Medicine; Visit Provider Internal Medicine Nephrology
DX: N18.4 Chronic kidney disease, stage 4 (severe) (principal)
CPT/HCPCS: 36415; 80048

== ENCOUNTER → 2022-09-19 | Outpatient (REF) | payer BC, SELFPAY ==
[2022-09-19 09:46] LABS: Anion Gap 8 (5-15); BUN 73 mg/dL (7-18); BUN/Creat Ratio 12.5 RATIO (10-20); Calcium,Total 8.2 mg/dL (8.5-10.1); Chloride 115 mmol/L (98-107); Creatinine, Serum 5.84 mg/dL (0.55-1.02); EST Glomerular Filtration Rate 8 mL/min (>60); Est Glom Filt Rate - Afr Amer 10 mL/min (>60); Glucose 96 mg/dL (74-106); Potassium 4.4 mmol/L (3.5-5.1); Sodium Level 141 mmol/L (136-145)
== END ==
LOC: OLS.SW 05:00
PROVIDERS: PCP Family Medicine; Visit Provider Internal Medicine Nephrology
DX: N18.4 Chronic kidney disease, stage 4 (severe) (principal)
CPT/HCPCS: 36415; 80048

== ENCOUNTER → 2022-09-24 | Outpatient (REF) | payer BC, SELFPAY ==
[2022-09-24 09:33] LABS: Anion Gap 7 (5-15); BUN 65 mg/dL (7-18); BUN/Creat Ratio 10.5 RATIO (10-20); Calcium,Total 8.2 mg/dL (8.5-10.1); Chloride 115 mmol/L (98-107); Creatinine, Serum 6.22 mg/dL (0.55-1.02); EST Glomerular Filtration Rate 7 mL/min (>60); Est Glom Filt Rate - Afr Amer 9 mL/min (>60); Glucose 87 mg/dL (74-106); Phosphorus 6.1 mg/dL (2.5-4.9); Sodium Level 140 mmol/L (136-145)
== END ==
LOC: OLS.SW 05:00
PROVIDERS: PCP Family Medicine; Visit Provider Family Medicine
DX: N18.5 Chronic kidney disease, stage 5 (principal)
CPT/HCPCS: 36415; 80048; 84100

== ENCOUNTER 2022-10-15 17:06 | Emergency (ER) | payer BC, SELFPAY ==
[2022-10-15 17:11] VITALS: BP 131/57; PULSE 98; RESP 18; TEMP 36.5; O2SAT 98
[2022-10-15 17:32] VITALS: BMI 75.2
--- NOTE | 2022-10-15 18:25 | EX.ED.DYSGE1 ---
HPI History of Present Illness Chief Complaint: Lower Extremity Injury Informant: patient Onset/Context/Timing Onset: Days (10 days) Narrative Narrative: Patient presents with 10 days of right leg pain. She was admitted to the hospital in August with right leg pain and swelling. She was started on Eliquis at that time but states she was told that she will had superficial clots. While in the halfway she reinjured her leg. She was recently discharged in the halfway and has been trying to elevate it since getting home. In spite of this she continues to have pain and swelling with increased bruising. She states she had x-rays done last week that did not show any obvious fractures. [facility] Medical History Anxiety and depression Benign essential hypertension Bipolar disorder Chronic anemia COPD with asthma Diabetes mellitus, type 2 Fibromyalgia Former tobacco use History of diabetes mellitus, type II HLD (hyperlipidemia) HTN (hypertension) Kidney disease, chronic, stage IV (GFR 15-29 ml/min) Neuropathy Obesity Home Medications cholecalciferol (vitamin D3) 25 mcg (1,000 unit) capsule (Vitamin D3) 5,000 unit PO DAILY 10/03/13 [History Last Taken 1 Day Ago ~11/24/16] omeprazole 20 mg capsule,delayed release 20 mg PO DAILY 08/23/14 [History Last Taken 11/25/16] glipizide 5 mg tablet 10 mg PO DAILY 04/28/15 [History Last Taken 11/25/16] labetalol 200 mg tablet 200 mg PO BID 04/28/15 [History Last Taken 11/25/16] aspirin 81 mg tablet,delayed release (Aspir-Low) 81 mg PO DAILY 05/27/16 [History Last Taken 11/25/16] melatonin 5 mg capsule 5 mg PO QHS 05/27/16 [History Last Taken 1 Day Ago ~11/24/16] ferrous sulfate 325 mg (65 mg iron) tablet (Iron (ferrous sulfate)) 325 mg PO DAILY 11/25/16 [History Last Taken 11/25/16] amitriptyline 100 mg tablet 100 mg PO QHS sleep 09/10/22 [History Last Taken 09/08/22 21:00] apixaban 2.5 mg tablet (Eliquis) 2.5 mg PO BID 09/10/22 [History Last Taken Unknown] atorvastatin 40 mg tablet 40 mg PO QHS hyperlipidemia 09/10/22 [History Last Taken Unknown] calcitriol 0.25 mcg capsule 0.25 mcg PO BID 09/10/22 [History Last Taken Unknown] dulaglutide 1.5 mg/0.5 mL subcutaneous pen injector (Trulicity) mg subcut .every thursday diabetes 09/10/22 [History Last Taken 09/07/22 20:01] hydroxyzine HCl 50 mg tablet 50 mg PO Q6H PRN itching 09/10/22 [History Last Taken Unknown] sertraline 50 mg tablet 50 mg PO QHS bipolar 09/10/22 [History Last Taken 09/08/22 21:00] sevelamer HCl 800 mg tablet 1,600 mg PO QHS 09/10/22 [History Last Taken Unknown] sodium bicarbonate 650 mg tablet 650 mg PO QHS 09/10/22 [History Last Taken Unknown] Remove Patch 1 patch topical DAILY@2200 ##0 09/11/22 [Rx Last Taken Unknown] acetaminophen 325 mg tablet 650 mg (2 x 325 mg) PO Q4H PRN PRN Fever, pain 1-12/09 #0 tabs 09/11/22 [Rx Last Taken Unknown] insulin lispro 100 unit/mL subcutaneous pen (Humalog KwikPen (U-100) Insulin) See Protocol subcut ACHS #0 mL 09/11/22 [Rx Last Taken Unknown] lidocaine 5 % topical patch 2 patch topical DAILY #0 ea 09/11/22 [Rx Last Taken Unknown] methylprednisolone 4 mg tablets in a dose pack 4 mg PO 0800,1200,1700 #0 tabs 09/11/22 [Rx Last Taken Unknown] oxycodone 5 mg tablet 5 mg PO Q4H PRN PRN Pain Score 4-10 3 days #12 tabs 09/11/22 [Rx Last Taken Unknown] oxycodone 5 mg tablet 5 mg PO Q8H PRN pain 3 days #10 tabs 10/15/22 [Rx Last Taken Unknown] Allergy/AdvReac Type Severity Reaction Status Date / Time renetta carin Allergy Unknown UNKNOWN Verified 10/15/22 17:10 mold Allergy Unknown unknown Verified 10/15/22 17:10 lisinopril Allergy unknown Verified 10/15/22 17:10 Penicillins Allergy Anaphylaxis Verified 10/15/22 17:10 tetracycline [Tetracycline] Allergy Anaphylaxis Verified 10/15/22 17:10 codeine AdvReac Abd Verified 10/15/22 17:10 cramps/diarrhea diphenhydramine HCl AdvReac Upset Verified 10/15/22 17:10 [From Benadryl] Stomach hydrocodone bitartrate AdvReac Abd Verified 10/15/22 17:10 [From Vicodin] cramps/diarrhea NSAIDS (Non-Steroidal AdvReac Unknown Verified 10/15/22 17:10 Anti-Inflamma Family History Mother Heart disease Hypertension Diabetes Kidney disease Father Diabetes Surgical History H/O gastric bypass H/O vascular surgery S/P appendectomy S/P cholecystectomy Social History household members: none Smoking Status: Former smoker how long ago did patient quit smoking: Quit age 24. alcohol intake: never substance use type: does not use ROS ROS ED Constitutional Constitutional ED: Denies chills or fever(s) Eyes Eyes: Denies change in vision or discharge from eye(s) ENT ENT ED: Denies discharge from eye(s), rhinorrhea or sore throat Cardiovascular Cardiovascular: Denies chest pain or palpitations Respiratory/Chest Respiratory/Chest: Denies cough or dyspnea Gastrointestinal Gastrointestinal: Denies abdominal pain, nausea or vomiting Genitourinary Genitourinary ED: Denies dysuria Musculoskeletal Musculoskeletal: Reports extremity pain; Denies back pain Integumentary Reports other Details: Ecchymoses ; Denies Abrasions or rash Neurologic Neurologic: Denies headache(s) or weakness Psychiatric Psychiatric: Denies anxiety or depression Allergic/Immunologic Allergic/Immunologic ED: Denies lip swelling or urticaria EXAM Physical Exam Const Vital Signs: 10/15/22 17:11 Temperature 97.7 F L Temperature Source Temporal Pulse Rate 98 Respiratory Rate 18 Blood Pressure 131/57 H Blood Pressure Mean 81 Pulse Ox 98 Oxygen Delivery Method Room Air Positive well nourished and well developed General Appearance ED: well developed HEENT Reports normocephalic and head/scalp atraumatic Eyes PERRL and EOMs intact bilaterally Neck supple Chest Wall inspection of chest normal and palpation of chest normal Resp normal respiratory effort and clear to auscultation bilaterally Cardio regular rate and regular rhythm GI normal to inspection, nondistended, normoactive bowel sounds Palpation: soft Extremity Extremity Narrative: Mild tender palpation around the right ankle and foot. No obvious deformity. Dependent appearing ecchymosis noted on the lateral portion of her foot and toes. Scattered ecchymotic areas noted on the upper leg. Neuro oriented x3 and no sensory deficits noted Sensorium / Orientation: alert Motor Exam: strength 5/5 throughout Psych mental status grossly normal MDM MDM MDM Narrative Medical decision making narrative: Venous ultrasound of the right lower extremity obtained to ensure no evidence of DVT. Patient states that she was told she only had a superficial clot previously and is not sure why she is on Eliquis. X-rays of the right tib-fib and right foot obtained given her ongoing pain and swelling. Radiography Diagnostic Testing: Clinical Impression(s) from Imaging Studies Foot X-Ray 10/15/22 18:31 IMPRESSION: 1. Osteoporosis. 2. Calcaneal spur. 3. Chondrocalcinosis. Electronically Signed: Anat Hassan MD at 19:14 EDT , Tibia/Fibula X-Ray 10/15/22 18:31 IMPRESSION: Apparent stress fracture of the proximal tibia. Electronically Signed: Anat Hassan MD at 19:10 EDT , Treatment and Re-Evaluation :: Right foot x-ray per my interpretation reveals chronic bony changes with no acute fracture. Radiology interpretation is reviewed and agrees. Right tib-fib x-rays reveal bony abnormality over the proximal tibia per my interpretation. No obvious fracture line. Radiology interpretation is reviewed and feels patient does have a stress fracture to this area. Patient's x-rays were discussed with Dr. Myers, on-call for orthopedics. He reviewed the images. This is an unusual location for a stress fracture. He recommended the patient have offloading of weight from the right leg is much as possible and follow-up for repeat imaging in possible MRI in the office. Patient is comfortable this plan and states she has been offloading from that leg with her walker at home. She also has a wheelchair coming in 2 days. Patient will discuss with her primary care physician whether she needs to continue to be on Eliquis. Venous ultrasound of the leg tonight revealed no evidence of DVT. Discharge Plan Triage Chief Complaint: Lower Extremity Injury ED Provider: Audra Ahuja Dx/Rx/DC Orders Clinical Impression: Stress fracture Instructions: Stress Fracture Prescriptions: New oxycodone 5 mg tablet 5 mg PO Q8H PRN (Reason: pain) 3 Days Qty: 10 0RF No Action cholecalciferol (vitamin D3) [Vitamin D3] 1,000 UNIT capsule 5,000 unit PO DAILY omeprazole 20 MG capsule 20 mg PO DAILY labetalol 200 MG tablet 200 mg PO BID glipizide 5 MG tablet 10 mg PO DAILY aspirin [Aspir-Low] 81 MG tablet,delayed release (DR/EC) 81 mg PO DAILY melatonin 5 MG capsule 5 mg PO QHS ferrous sulfate [Iron (ferrous sulfate)] 325 MG tablet 325 mg PO DAILY atorvastatin 40 mg tablet 40 mg PO QHS calcitriol 0.25 mcg capsule 0.25 mcg PO BID Trulicity 1.5 mg/0.5 mL pen injector SUBCUT .every thursday sevelamer HCl 800 mg tablet 1,600 mg PO QHS sodium bicarbonate 650 mg tablet 650 mg PO QHS Eliquis 2.5 mg tablet 2.5 mg PO BID sertraline 50 mg tablet 50 mg PO QHS hydroxyzine HCl 50 mg tablet 50 mg PO Q6H PRN (Reason: itching) amitriptyline 100 mg tablet 100 mg PO QHS acetaminophen 325 mg Tablet 650 mg PO Q4H PRN PRN (Reason: Fever, pain -12/09) Qty: 0 0RF insulin lispro [Humalog KwikPen Insulin] 100 unit/mL Insulin Pen See Protocol subcut ACHS Qty: 0 0RF Protocol: 3. Sliding Scale Insulin Med Dosing Condition: 150-189 mg/dl = 1 unit Condition: 190-229 mg/dl = 2 units Condition: 230-269 mg/dl = 3 units Condition: 270-309 mg/dl = 4 units Condition: 310-349 mg/dl = 5 units Condition: 350-399 mg/dl = 6 units Condition: 400-449 mg/dl = 7 units Condition: Greater than 449 call physician Protocol Text: - Use for Total Daily Dose of Insulin 37-55 units - Obsese, infected, or steroid patients MEDIUM DOSING ALGORITHIM lidocaine 5 % Adhesive Patch,Medicated 2 patch topical DAILY Qty: 0 0RF Protocol: *Topical Application Instructions APPLICATION INSTRUCTIONS: R hip, R knee methylprednisolone 4 mg Tablets,Dose Pack 4 mg PO 0800,1200,1700 Qty: 0 0RF oxycodone 5 mg Tablet 5 mg PO Q4H PRN PRN (Reason: Pain Score 4-10) 3 Days Qty: 12 0RF Remove Patch 1 patch topical DAILY@2200 Qty: 0 0RF Primary Care Provider: Aki Archibald Referrals: Hipolito Myers DO [Med Staff - Active Staff] - 5-7 Days Aki Archibald MD [Primary Care Provider] - Keep Pao appointment Disposition Disposition: Home, Self Care
--- NOTE | 2022-10-15 18:31 | RAD_ITS ---
STUDY: X-RAY - RIGHT FOOT CLINICAL: Female, 57 years old patient with right-sided foot pain. TECHNIQUE: 3 view(s) of the foot. COMPARISON: Radiographs of the right foot dated August 28, 2015. FINDINGS: There is demineralization of the rear and midfoot bones. There is a small plantar calcaneal spur. Normal visualized subtalar, talonavicular, calcaneocuboid, tarsal and tarsometatarsal articulations. There is demineralization of the metatarsi. There are erosive changes present at the third metatarsal head. Normal metatarsophalangeal joint of the great toe. Normal tibial and fibular sesamoid bones. Normal interphalangeal joint of the great toe. Normal phalanges of the great toe. Normal second through fifth metatarsophalangeal joints. Normal interphalangeal joints and phalanges of the lesser toes. There is non-specific soft tissue swelling of the foot. There is some chondrocalcinosis involving the posterior soft tissues possibly related to the Achilles tendon. There are vascular calcifications as well. There is no demonstrated fracture. RAD/Foot min 3 Views IMPRESSION: 1. Osteoporosis. 2. Calcaneal spur. 3. Chondrocalcinosis. Electronically Signed: Anat Hassan MD at 19:14 EDT ,
--- NOTE | 2022-10-15 18:31 | RAD_ITS ---
STUDY: X-RAY - RIGHT TIBIA AND FIBULA REASON FOR EXAM: Female, 57 years old patient with leg pain. TECHNIQUE: AP and lateral view(s) of the tibia and fibula were obtained. COMPARISON: Radiographs of the right knee dated September 07, 2022. FINDINGS: There is demineralization of the tibia. There is eburnation of the proximal tibial diaphysis suggesting sequela of a stress fracture. This is new since the previous study. There is demineralization of the fibula. There are vascular calcifications visible throughout the distal thigh, knee and leg. RAD/Tibia & Fibula 2 Views IMPRESSION: Apparent stress fracture of the proximal tibia. Electronically Signed: Anat Hassan MD at 19:10 EDT ,
--- NOTE | 2022-10-15 18:32 | US_ITS ---
STUDY: VENOUS DOPPLER ULTRASOUND - RIGHT LOWER EXTREMITY REASON FOR EXAM: Female, 57 years old patient with right lower leg pain and swelling in ankle area. TECHNIQUE: Ultrasound evaluation of the deep vein system to include waters-scale imaging and compression was performed. Waters-scale imaging and Doppler sonographic evaluation, including duplex spectral analysis and qualitative color flow sonography, was performed. COMPARISON: None. FINDINGS: Common Femoral Vein: Normal compression, spontaneity and augmentation. Normal color Doppler. Common Femoral Vein/Greater Saphenous Junction: Normal compression, spontaneity and augmentation. Normal color Doppler. Femoral Proximal: Normal compression, spontaneity and augmentation. Normal color Doppler. Femoral Middle: Normal compression, spontaneity and augmentation. Normal color Doppler. Femoral Distal: Normal compression, spontaneity and augmentation. Normal color Doppler. Popliteal Vein: Normal compression, spontaneity and augmentation. Normal color Doppler. Posterior Tibial Vein: Normal compression. Peroneal Vein: Normal compression. The above findings are consistent with an acute thrombosis. US/Venous Duplex Imag/Limited/Uni IMPRESSION: No sonographic evidence for deep venous thrombosis of the right common femoral, femoral or popliteal veins. Electronically Signed: Anat Hassan MD at 20:09 EDT ,
== END 2022-10-15 20:19 | disposition home or self-care (01) ==
PROVIDERS: Emergency Provider Emergency Medicine; PCP Family Medicine; Visit Provider Emergency Medicine
DX: M84.361A Stress fracture, right tibia, initial encounter for fracture (principal); J44.9 Chronic obstructive pulmonary disease, unspecified; E11.22 Type 2 diabetes mellitus with diabetic chronic kidney disease; E11.40 Type 2 diabetes mellitus with diabetic neuropathy, unspecified; N18.4 Chronic kidney disease, stage 4 (severe); Z87.891 Personal history of nicotine dependence; M79.89 Other specified soft tissue disorders; E78.5 Hyperlipidemia, unspecified; I12.9 Hypertensive chronic kidney disease with stage 1 through stage 4 chronic kidney disease, or unspecified chronic kidney disease; Z79.01 Long term (current) use of anticoagulants; X58.XXXA Exposure to other specified factors, initial encounter
CPT/HCPCS: 73590; 73630; 93971; 99283

== ENCOUNTER 2022-10-30 07:16 | Emergency (ER) | payer BC, SELFPAY ==
[2022-10-30 07:17] VITALS: BP 164/66; PULSE 90; RESP 18; TEMP 35.8; BMI 34.8
--- NOTE | 2022-10-30 07:29 | EKG12_ITS ---
Test Reason : CP Blood Pressure : / mmHG Vent. Rate : 089 BPM Atrial Rate : 089 BPM P-R Int : 170 ms QRS Dur : 098 ms QT Int : 400 ms P-R-T Axes : 067 021 072 degrees QTc Int : 486 ms Normal sinus rhythm Prolonged QT Abnormal ECG Confirmed by ROMIE MONTANA ([id number]), film or videotape editor LINDA PICKETT ([id number]) on 11/13/2022 10:53:03 AM Referred By: STERLING Confirmed By:ROMIE MONTANA
--- NOTE | 2022-10-30 07:29 | VDLE_ITS ---
Reason For Study: Right leg swelling RIGHT LEFT GSV is normal. CFV is compressible, spontaneous, phasic, CFV is compressible, spontaneous, phasic, competent, and demonstrates normal competent and demonstrates normal augmentation. augmentation. FV is compressible, spontaneous, phasic, competent and demonstrates normal augmentation. POP V is compressible, spontaneous, phasic, competent and demonstrates normal augmentation. T/P Trunk is compressible. PTV is compressible. RT PerV is compressible. Procedure This is a venous duplex using B-mode, color flow and spectral Doppler. Exam performed portable in ED. A preliminary report was called and/or faxed to [facility]. VL/Venous Duplex US, Unilateral Interpretation Summary Deep veins of the right lower extremity are patent and compressible segmentally . There is no evidence of right lower extremity deep vein thrombosis. The right great sapheno us vein appears patent and compressible segmentally. Ordering Physician: Audra Ahuja Referring Physician: Aki Archibald Performed By: Jacy Tim RVT
--- NOTE | 2022-10-30 07:31 | EX.ED.DYSGE1 ---
HPI History of Present Illness Chief Complaint: Chest Pain Informant: patient Onset/Context/Timing Onset: Today Narrative Narrative: Patient presents secondary to neuropathy pain, right leg swelling, chest pain. Patient states she was awoken at 430 this morning with neuropathy pain in her left arm. As the morning went on she started getting pain in other areas. After she called EMS and was being transported she developed some midsternal chest pressure. No shortness of breath. Patient does have a stress fracture noted to her right lower extremity. She recently was taken off of Eliquis as in the past she only had evidence of a superficial clot. She has noted her leg to be more swollen. [facility] Medical History Anxiety and depression Benign essential hypertension Bipolar disorder Chronic anemia COPD with asthma Diabetes mellitus, type 2 Fibromyalgia Former tobacco use History of diabetes mellitus, type II HLD (hyperlipidemia) HTN (hypertension) Kidney disease, chronic, stage IV (GFR 15-29 ml/min) Neuropathy Obesity Home Medications cholecalciferol (vitamin D3) 25 mcg (1,000 unit) capsule (Vitamin D3) 5,000 unit PO DAILY 10/03/13 [History Last Taken 1 Day Ago ~11/24/16] omeprazole 20 mg capsule,delayed release 20 mg PO DAILY 08/23/14 [History Last Taken 11/25/16] glipizide 5 mg tablet 10 mg PO DAILY 04/28/15 [History Last Taken 11/25/16] labetalol 200 mg tablet 200 mg PO BID 04/28/15 [History Last Taken 11/25/16] aspirin 81 mg tablet,delayed release (Aspir-Low) 81 mg PO DAILY 05/27/16 [History Last Taken 11/25/16] melatonin 5 mg capsule 5 mg PO QHS 05/27/16 [History Last Taken 1 Day Ago ~11/24/16] ferrous sulfate 325 mg (65 mg iron) tablet (Iron (ferrous sulfate)) 325 mg PO DAILY 11/25/16 [History Last Taken 11/25/16] amitriptyline 100 mg tablet 100 mg PO QHS sleep 09/10/22 [History Last Taken 09/08/22 21:00] apixaban 2.5 mg tablet (Eliquis) 2.5 mg PO BID 09/10/22 [History Last Taken Unknown] atorvastatin 40 mg tablet 40 mg PO QHS hyperlipidemia 09/10/22 [History Last Taken Unknown] calcitriol 0.25 mcg capsule 0.25 mcg PO BID 09/10/22 [History Last Taken Unknown] dulaglutide 1.5 mg/0.5 mL subcutaneous pen injector (Trulicity) mg subcut .every thursday diabetes 09/10/22 [History Last Taken 09/07/22 20:01] hydroxyzine HCl 50 mg tablet 50 mg PO Q6H PRN itching 09/10/22 [History Last Taken Unknown] sertraline 50 mg tablet 50 mg PO QHS bipolar 09/10/22 [History Last Taken 09/08/22 21:00] sevelamer HCl 800 mg tablet 1,600 mg PO QHS 09/10/22 [History Last Taken Unknown] sodium bicarbonate 650 mg tablet 650 mg PO QHS 09/10/22 [History Last Taken Unknown] Remove Patch 1 patch topical DAILY@2200 ##0 09/11/22 [Rx Last Taken Unknown] acetaminophen 325 mg tablet 650 mg (2 x 325 mg) PO Q4H PRN PRN Fever, pain 1-1010 #0 tabs 09/11/22 [Rx Last Taken Unknown] insulin lispro 100 unit/mL subcutaneous pen (Humalog KwikPen (U-100) Insulin) See Protocol subcut ACHS #0 mL 09/11/22 [Rx Last Taken Unknown] lidocaine 5 % topical patch 2 patch topical DAILY #0 ea 09/11/22 [Rx Last Taken Unknown] methylprednisolone 4 mg tablets in a dose pack 4 mg PO 0800,1200,1700 #0 tabs 09/11/22 [Rx Last Taken Unknown] oxycodone 5 mg tablet 5 mg PO Q4H PRN PRN Pain Score 4-10 3 days #12 tabs 09/11/22 [Rx Last Taken Unknown] oxycodone 5 mg tablet 5 mg PO Q8H PRN pain 3 days #10 tabs 10/15/22 [Rx Last Taken Unknown] Allergy/AdvReac Type Severity Reaction Status Date / Time renetta carin Allergy Unknown UNKNOWN Verified 10/30/22 07:16 mold Allergy Unknown unknown Verified 10/30/22 07:16 lisinopril Allergy unknown Verified 10/30/22 07:16 Penicillins Allergy Anaphylaxis Verified 10/30/22 07:16 tetracycline [Tetracycline] Allergy Anaphylaxis Verified 10/30/22 07:16 codeine AdvReac Abd Verified 10/30/22 07:16 cramps/diarrhea diphenhydramine HCl AdvReac Upset Verified 10/30/22 07:16 [From Benadryl] Stomach hydrocodone bitartrate AdvReac Abd Verified 10/30/22 07:16 [From Vicodin] cramps/diarrhea NSAIDS (Non-Steroidal AdvReac Unknown Verified 10/30/22 07:16 Anti-Inflamma Family History Mother Heart disease Hypertension Diabetes Kidney disease Father Diabetes Surgical History H/O gastric bypass H/O vascular surgery S/P appendectomy S/P cholecystectomy Social History household members: none Smoking Status: Former smoker how long ago did patient quit smoking: Quit age 24. alcohol intake: never substance use type: does not use ROS ROS ED Constitutional Constitutional ED: Denies chills or fever(s) Eyes Eyes: Denies discharge from eye(s) ENT ENT ED: Denies discharge from eye(s), rhinorrhea or sore throat Cardiovascular Cardiovascular: Reports chest pain; Denies palpitations Respiratory/Chest Respiratory/Chest: Denies cough or dyspnea Gastrointestinal Gastrointestinal: Denies abdominal pain, nausea or vomiting Musculoskeletal Musculoskeletal: Reports extremity pain; Denies back pain Integumentary Denies Abrasions or rash Neurologic Neurologic: Denies headache(s) or weakness Psychiatric Psychiatric: Denies anxiety or depression Allergic/Immunologic Allergic/Immunologic ED: Denies lip swelling or urticaria EXAM Physical Exam Const Vital Signs: 10/30/22 07:17 10/30/22 07:22 10/30/22 07:29 Temperature 96.5 F L Temperature Source Temporal Pulse Rate 90 Respiratory Rate 18 Respiratory Effort Normal Non-Labored Blood Pressure 164/66 H Blood Pressure Mean 98 Oxygen Delivery Method Room Air Room Air 10/30/22 08:16 10/30/22 09:16 10/30/22 10:00 Temperature Temperature Source Pulse Rate Respiratory Rate 18 Respiratory Effort Blood Pressure 170/77 H 169/78 H Blood Pressure Mean 108 108 Oxygen Delivery Method 10/30/22 11:20 Temperature Temperature Source Pulse Rate 79 Respiratory Rate 15 Respiratory Effort Blood Pressure 169/73 H Blood Pressure Mean 105 Oxygen Delivery Method Room Air Positive well nourished and well developed General Appearance ED: well developed HEENT Reports normocephalic and head/scalp atraumatic Eyes PERRL and EOMs intact bilaterally Neck supple Chest Wall inspection of chest normal and palpation of chest normal Resp normal respiratory effort and clear to auscultation bilaterally Cardio regular rate and regular rhythm GI non-tender Palpation: soft Extremity Extremity Narrative: Left upper extremity: Fistula noted with good thrill. No skin changes noted. Right lower extremity: Mild edema noted. Mild tenderness over the proximal tibia. Neuro oriented x3 Sensorium / Orientation: alert Psych mental status grossly normal Skin no rashes or lesions noted MDM MDM MDM Narrative Medical decision making narrative: Patient placed on monitor and storage bin tender. Labwork obtained to evaluate for leukocytosis, anemia, and electrolyte derangement. EKG obtained to evaluate for cardiac arrhythmia/ischemia. Chest x-ray obtained to evaluate for acute lung pathology, cardiac size, or mediastinal abnormality. Right lower extremity ultrasound obtained to evaluate for DVT. History & Record Review Discussion w/independent historian: EMS personnel and Patient Additional record(s) reviewed:: Prior ED visit and Prior labs Lab Data Attestation: I reviewed the patient's lab results. Labs: Laboratory Results - last 24 hr 10/30/22 10/30/22 07:25 09:35 WBC 4.4 RBC 3.29 L Hgb 10.5 L Hct 33.9 L MCV 103.0 H MCH 31.9 MCHC 31.0 L RDW Std Deviation 53.3 H RDW Coeff of Ben 14.3 Plt Count 188 MPV 9.1 Immature Gran % (Auto) 0.200 Neut % (Auto) 65.5 Lymph % (Auto) 21.8 [place] % (Auto) 8.6 Eos % (Auto) 3.2 Baso % (Auto) 0.7 Absolute Neuts (auto) 2.9 Absolute Lymphs (auto) 0.97 Nucleated RBC % 0 Sodium 132 L Potassium 4.2 Chloride 97 L Carbon Dioxide 30.0 Anion Gap 5 BUN 15 Creatinine 3.93 H Estim Creat Clear Calc 15.93 Est GFR (MDRD) Af Amer 15 L Est GFR (MDRD) Non-Af 13 L BUN/Creatinine Ratio 3.8 L Glucose 73 L Calcium 9.1 Troponin I High Sens 17 17 Radiography Diagnostic Testing: Clinical Impression(s) from Imaging Studies Chest X-Ray 10/30/22 07:35 IMPRESSION: No acute pulmonary disease. Electronically Signed: Salvador Bello MD at 7:57 EDT , EKG Initial EKG: Attestation: I personally reviewed and interpreted this EKG as follows: Interpretation: Sinus Rhythm (Sinus 89 with no acute ischemia.) Treatment and Re-Evaluation :: CBC reveals mild anemia with a hemoglobin of 10.5. This is actually concentrated when compared to her prior values. Chemistry studies reveal normal potassium. Creatinine is 3.93. She is due for dialysis today. Glucose is 73. Initial troponin is 17 with a delta of 17. Portable chest x-ray shows no acute findings. Venous ultrasound of the right lower extremity reveals no evidence of DVT. Patient was given Powerade to drink to help with hydration status as well as electrolytes. At this time she feels well. She will be discharged to home with close follow-up. Discharge Plan Triage Chief Complaint: Chest Pain ED Provider: Audra Ahuja Dx/Rx/DC Orders Clinical Impression: Edema, Neuropathy, Chest pain Instructions: ED Chest Pain, Uncertain Cause, ED Neuropathy, Peripheral Prescriptions: No Action cholecalciferol (vitamin D3) [Vitamin D3] 1,000 UNIT capsule 5,000 unit PO DAILY omeprazole 20 MG capsule 20 mg PO DAILY labetalol 200 MG tablet 200 mg PO BID glipizide 5 MG tablet 10 mg PO DAILY aspirin [Aspir-Low] 81 MG tablet,delayed release (DR/EC) 81 mg PO DAILY melatonin 5 MG capsule 5 mg PO QHS ferrous sulfate [Iron (ferrous sulfate)] 325 MG tablet 325 mg PO DAILY atorvastatin 40 mg tablet 40 mg PO QHS calcitriol 0.25 mcg capsule 0.25 mcg PO BID Trulicity 1.5 mg/0.5 mL pen injector SUBCUT .every thursday sevelamer HCl 800 mg tablet 1,600 mg PO QHS sodium bicarbonate 650 mg tablet 650 mg PO QHS Eliquis 2.5 mg tablet 2.5 mg PO BID sertraline 50 mg tablet 50 mg PO QHS hydroxyzine HCl 50 mg tablet 50 mg PO Q6H PRN (Reason: itching) amitriptyline 100 mg tablet 100 mg PO QHS acetaminophen 325 mg Tablet 650 mg PO Q4H PRN PRN (Reason: Fever, pain 1-12/09) Qty: 0 0RF insulin lispro [Humalog KwikPen Insulin] 100 unit/mL Insulin Pen See Protocol subcut ACHS Qty: 0 0RF Protocol: 3. Sliding Scale Insulin Med Dosing Condition: 150-189 mg/dl = 1 unit Condition: 190-229 mg/dl = 2 units Condition: 230-269 mg/dl = 3 units Condition: 270-309 mg/dl = 4 units Condition: 310-349 mg/dl = 5 units Condition: 350-399 mg/dl = 6 units Condition: 400-449 mg/dl = 7 units Condition: Greater than 449 call physician Protocol Text: - Use for Total Daily Dose of Insulin 37-55 units - Obsese, infected, or steroid patients MEDIUM DOSING ALGORITHIM lidocaine 5 % Adhesive Patch,Medicated 2 patch topical DAILY Qty: 0 0RF Protocol: *Topical Application Instructions APPLICATION INSTRUCTIONS: R hip, R knee methylprednisolone 4 mg Tablets,Dose Pack 4 mg PO 0800,1200,1700 Qty: 0 0RF oxycodone 5 mg Tablet 5 mg PO Q4H PRN PRN (Reason: Pain Score 4-10) 3 Days Qty: 12 0RF Remove Patch 1 patch topical DAILY@2200 Qty: 0 0RF oxycodone 5 mg tablet 5 mg PO Q8H PRN (Reason: pain) 3 Days Qty: 10 0RF Primary Care Provider: Aki Archibald Referrals: Aki Archibald MD [Primary Care Provider] - 1-2 Weeks Disposition Disposition: Home, Self Care
[2022-10-30] MEDS: oxyCODONE 5 MG Tablet PO (07:35)
--- NOTE | 2022-10-30 07:35 | RAD_ITS ---
INDICATION: chest pain EXAMINATION: Frontal view of the chest COMPARISON: Chest x-ray January 16, 2021. FINDINGS: Frontal view of the chest was obtained. The cardiac silhouette is borderline enlarged. No confluent airspace disease. No pneumothorax. No acute fracture identified. RAD/Chest 1 View (Portable) IMPRESSION: No acute pulmonary disease. Electronically Signed: Salvador Bello MD at 7:57 EDT ,
[2022-10-30 07:38] LABS: Absolute Lymphocyte Count 0.97 X10^3/uL (0.83-4.51); Absolute Neutrophil Count 2.9 X10^3/uL (2.0-7.7); Basophil# 0.03 X10^3/uL; Basophil% 0.7 % (0-1); Eosinophil# 0.14 X10^3/uL; Eosinophils% 3.2 % (0-5); Hematocrit 33.9 % (37-47); Hemoglobin 10.5 g/dL (12.0-15.0); Lymphocyte # 0.97 X10^3/ul (0.83-4.51); Lymphocyte % 21.8 % (19-41); Mean Corpuscular Hgb 31.9 pg (27.0-32.0); Mean Platelet Vol. 9.1 fl (6.2-12.0); Monocyte# 0.38 X10^3/uL; Monocyte% 8.6 % (0-10); NRBC Flagged by Analyzer 0 % (0-5); Neutrophil # 2.91 X10^3/uL (2.7-7.7); Neutrophil % 65.5 % (47-70); Platelet Count 188 K/mm3 (150-450); RBC Distribution Width CV 14.3 % (11.6-14.6); RBC Distribution Width SD 53.3 fl (35.1-43.9); Red Blood Count 3.29 M/mm3 (4.2-5.4); White Blood Count 4.4 K/mm3 (4.4-11.0)
[2022-10-30 07:58] LABS: Anion Gap 5 (5-15); BUN 15 mg/dL (7-18); BUN/Creat Ratio 3.8 RATIO (10-20); Calcium,Total 9.1 mg/dL (8.5-10.1); Chloride 97 mmol/L (98-107); Creatinine, Serum 3.93 mg/dL (0.55-1.02); EST Glomerular Filtration Rate 13 mL/min (>60); Est Glom Filt Rate - Afr Amer 15 mL/min (>60); Estimated Creatinine Clearance 15.93 ml/min; Glucose 73 mg/dL (74-106); Potassium 4.2 mmol/L (3.5-5.1); Sodium Level 132 mmol/L (136-145); Troponin-I HS (w/2H Reflex) 17 pg/mL (3.0-54.0)
[2022-10-30 08:16] VITALS: RESP 18
[2022-10-30 09:16] VITALS: BP 170/77
[2022-10-30 09:34] LABS: Reflex Troponin-HS? (from REC) Y
[2022-10-30 10:00] VITALS: BP 169/78
[2022-10-30 10:02] LABS: Troponin-I HS 17 pg/mL (3.0-54.0)
[2022-10-30 11:20] VITALS: BP 169/73; PULSE 79; RESP 15
[2022-10-30 11:27] VITALS: BP 135/65; PULSE 79; RESP 17
== END 2022-10-30 11:36 | disposition home or self-care (01) ==
PROVIDERS: Emergency Provider Emergency Medicine; PCP Family Medicine; Visit Provider Emergency Medicine
DX: R07.9 Chest pain, unspecified (principal); E11.40 Type 2 diabetes mellitus with diabetic neuropathy, unspecified; E11.22 Type 2 diabetes mellitus with diabetic chronic kidney disease; N18.4 Chronic kidney disease, stage 4 (severe); R60.0 Localized edema; Z87.891 Personal history of nicotine dependence
CPT/HCPCS: 71045; 80048; 84484; 85025; 93005; 93971; 99285; A4216

== ENCOUNTER 2023-01-13 12:02 | Emergency (ER) | payer BC, SELFPAY ==
[2023-01-13 12:03] VITALS: BP 103/80; PULSE 88; RESP 16; TEMP 35.9; O2SAT 100
--- NOTE | 2023-01-13 12:18 | ED.VIS.LOWEX ---
HPI History of Present Illness Chief Complaint: Lower Extremity Injury Informant: patient Narrative Narrative: Patient presents with right proximal tib-fib area pain. Patient states she fractured her leg back in mid September. But it was treated with just rest. He was doing better but now it seems to hurt in about the same spot over the last few days. It hurts with weightbearing. But there is no swelling. All the pain is in the anterior and slightly lateral. No posterior. No swelling. No fevers or chills. No knee swelling. Patient is on dialysis. She just left dialysis here before coming in now. She states she also has spinal stenosis that will sometimes act and cause the same pain in her leg but her back is not hurting. I looked over prior records and outpatient x-rays and see that she had a proximal tibia stress fracture back in mid September. [facility] Medical History Anxiety and depression Benign essential hypertension Bipolar disorder Chronic anemia COPD with asthma Diabetes mellitus, type 2 Fibromyalgia Former tobacco use History of diabetes mellitus, type II HLD (hyperlipidemia) HTN (hypertension) Kidney disease, chronic, stage IV (GFR 15-29 ml/min) Neuropathy Obesity Home Medications cholecalciferol (vitamin D3) 25 mcg (1,000 unit) capsule (Vitamin D3) 5,000 unit PO DAILY 10/03/13 [History Last Taken 1 Day Ago ~11/24/16] omeprazole 20 mg capsule,delayed release 20 mg PO DAILY 08/23/14 [History Last Taken 11/25/16] glipizide 5 mg tablet 10 mg PO DAILY 04/28/15 [History Last Taken 11/25/16] labetalol 200 mg tablet 200 mg PO BID 04/28/15 [History Last Taken 11/25/16] aspirin 81 mg tablet,delayed release (Aspir-Low) 81 mg PO DAILY 05/27/16 [History Last Taken 11/25/16] melatonin 5 mg capsule 5 mg PO QHS 05/27/16 [History Last Taken 1 Day Ago ~11/24/16] ferrous sulfate 325 mg (65 mg iron) tablet (Iron (ferrous sulfate)) 325 mg PO DAILY 11/25/16 [History Last Taken 11/25/16] amitriptyline 100 mg tablet 100 mg PO QHS sleep 09/10/22 [History Last Taken 09/08/22 21:00] apixaban 2.5 mg tablet (Eliquis) 2.5 mg PO BID 09/10/22 [History Last Taken Unknown] atorvastatin 40 mg tablet 40 mg PO QHS hyperlipidemia 09/10/22 [History Last Taken Unknown] calcitriol 0.25 mcg capsule 0.25 mcg PO BID 09/10/22 [History Last Taken Unknown] dulaglutide 1.5 mg/0.5 mL subcutaneous pen injector (Trulicity) mg subcut .every thursday diabetes 09/10/22 [History Last Taken 09/07/22 20:01] hydroxyzine HCl 50 mg tablet 50 mg PO Q6H PRN itching 09/10/22 [History Last Taken Unknown] sertraline 50 mg tablet 50 mg PO QHS bipolar 09/10/22 [History Last Taken 09/08/22 21:00] sevelamer HCl 800 mg tablet 1,600 mg PO QHS 09/10/22 [History Last Taken Unknown] sodium bicarbonate 650 mg tablet 650 mg PO QHS 09/10/22 [History Last Taken Unknown] Remove Patch 1 patch topical DAILY@2200 ##0 09/11/22 [Rx Last Taken Unknown] acetaminophen 325 mg tablet 650 mg (2 x 325 mg) PO Q4H PRN PRN Fever, pain 1-12/09 #0 tabs 09/11/22 [Rx Last Taken Unknown] insulin lispro 100 unit/mL subcutaneous pen (Humalog KwikPen (U-100) Insulin) See Protocol subcut ACHS #0 mL 09/11/22 [Rx Last Taken Unknown] lidocaine 5 % topical patch 2 patch topical DAILY #0 ea 09/11/22 [Rx Last Taken Unknown] methylprednisolone 4 mg tablets in a dose pack 4 mg PO 0800,1200,1700 #0 tabs 09/11/22 [Rx Last Taken Unknown] oxycodone 5 mg tablet 5 mg PO Q4H PRN PRN Pain Score 4-10 3 days #12 tabs 09/11/22 [Rx Last Taken Unknown] oxycodone 5 mg tablet 5 mg PO Q8H PRN pain 3 days #10 tabs 10/15/22 [Rx Last Taken Unknown] naproxen 500 mg tablet (Naprosyn) 500 mg PO BID PRN pain #14 tabs 01/13/23 [Rx Last Taken Unknown] Allergy/AdvReac Type Severity Reaction Status Date / Time balsam carin Allergy Unknown UNKNOWN Verified 01/13/23 12:03 mold Allergy Unknown unknown Verified 01/13/23 12:03 lisinopril Allergy unknown Verified 01/13/23 12:03 Penicillins Allergy Anaphylaxis Verified 01/13/23 12:03 tetracycline [Tetracycline] Allergy Anaphylaxis Verified 01/13/23 12:03 codeine AdvReac Abd Verified 01/13/23 12:03 cramps/diarrhea diphenhydramine HCl AdvReac Upset Verified 01/13/23 12:03 [From Benadryl] Stomach hydrocodone bitartrate AdvReac Abd Verified 01/13/23 12:03 [From Vicodin] cramps/diarrhea NSAIDS (Non-Steroidal AdvReac Unknown Verified 01/13/23 12:03 Anti-Inflamma Family History Mother Heart disease Hypertension Diabetes Kidney disease Father Diabetes Surgical History H/O gastric bypass H/O vascular surgery S/P appendectomy S/P cholecystectomy Social History household members: none Smoking Status: Former smoker how long ago did patient quit smoking: Quit age 24. alcohol intake: never substance use type: does not use ROS ROS ED Constitutional Constitutional ED: Denies chills or fever(s) ENT ENT ED: Denies rhinorrhea Cardiovascular Cardiovascular: Denies chest pain or palpitations Respiratory/Chest Respiratory/Chest: Denies cough or dyspnea Gastrointestinal Gastrointestinal: Denies nausea or vomiting Musculoskeletal Musculoskeletal: Reports other Details: See history of present illness. Integumentary Denies abscess or rash Neurologic Neurologic: Reports other Details: Patient has some chronic neuropathy and paresthesias but there is no difference recently. The pain is the only change. This is similar to her stress fracture but also similar to her spinal stenosis pain. ; Denies paresthesias or weakness Hematologic/Lymphatic Hematologic/Lymphatic: Reports other Details: Patient is given heparin with dialysis but denies any other anticoagulation ; Denies easy bleeding or easy bruising Allergic/Immunologic Allergic/Immunologic ED: Denies urticaria EXAM Physical Exam Narrative Exam Narrative: CONSTITUTIONAL: Patient is nontoxic in appearance. The patient looks comfortable. Work of breathing looks normal. HEENT: No notable trauma. Mucous membranes moist. EYES: No pallor. NECK:No JVD. No stridor. CARDIOVASCULAR: Regular rate. Regular rhythm. No notable murmur. No JVD. RESPIRATORY: No respiratory distress. Breathing is unlabored. Saturations are normal at 100% on room air showing no hypoxia GASTROINTESTINAL: Not distended. Bowel sounds are normal. No tenderness. MUSCULOSKELETAL: No notable back pain. Examination of the legs show no asymmetry. There is no cord. No tenderness along the deep venous system. No swelling. No distended veins. Patient has some tenderness near the tibial tuberosity and just lateral to this in the notch between fibula and tibia. But the knee itself is not at all swollen. There is no effusion. Range of motion is good. There are no skin changes noted. NEUROLOGICAL: Patient is alert and appropriate. No focal deficit noted. SKIN: No noted rashes. No diaphoresis. No redness. No vesicles or lesions. PSYCHIATRIC: Patient is calm. Mood is appropriate. Const Vital Signs: 01/13/23 12:03 Temperature 96.7 F L Temperature Source Temporal Pulse Rate 88 Respiratory Rate 16 Blood Pressure 103/80 Blood Pressure Mean 87 Pulse Ox 100 Oxygen Delivery Method Room Air MDM MDM MDM Narrative Medical decision making narrative: My independent interpretation the patient's two-view x-ray of the right tib-fib shows healing area at the proximal tibia. Radiology also notes that there is a lucency in a portion. This posterior medial. Her pain is more anterior lateral. She has never had a skin lesion. She has none now. She denies any recent infection. She has had no fevers or chills. Her blood pressures been controlled. I talked with her about these films. But this is not classic presentation of infection. This is probably more likely related to variability of healing. She states she just had x-rays 2 weeks ago. I do not have access to those. She has an orthopedic surgeon that is in [place] but she states she thinks he comes down here in [facility] also. I recommend she call him to for close follow-up to have this rechecked. They may need repeat x-rays or these x-rays may be similar to her healing pattern. But at this point I do not think further blood work admission antibiotic or biopsy or surgery would be appropriate. Patient requested nonsteroidals for the pain. They are listed on her allergies but she states that is before she was on dialysis. She states she talk to her loan operations specialist who said she is allowed to have nonsteroidals now. She states these work well for pain and she does not want anything stronger. She states she just wants to take something at night for sleeping. I will write her for some Naprosyn. We discussed taking it with meals. We also discussed returning if she has worsening pain any development of redness swelling fevers or other concerns. Radiography Diagnostic Testing: Clinical Impression(s) from Imaging Studies Tibia/Fibula X-Ray 01/13/23 13:02 IMPRESSION: Healed fracture in the proximal tibia with focal lucency as described. Infectious processes should be ruled out. Electronically Signed: Piter Dietrich MD at 13:16 EST , Discharge Plan Triage Chief Complaint: Lower Extremity Injury ED Provider: Dakota Cobos Dx/Rx/DC Orders Clinical Impression: Stress fracture of right tibia with delayed healing, Right leg pain Instructions: ED Pain, Acute, Uncertain Cause Prescriptions: New naproxen [Naprosyn] 500 mg tablet 500 mg PO BID PRN (Reason: pain) Qty: 14 0RF No Action cholecalciferol (vitamin D3) [Vitamin D3] 1,000 UNIT capsule 5,000 unit PO DAILY omeprazole 20 MG capsule 20 mg PO DAILY labetalol 200 MG tablet 200 mg PO BID glipizide 5 MG tablet 10 mg PO DAILY aspirin [Aspir-Low] 81 MG tablet,delayed release (DR/EC) 81 mg PO DAILY melatonin 5 MG capsule 5 mg PO QHS ferrous sulfate [Iron (ferrous sulfate)] 325 MG tablet 325 mg PO DAILY atorvastatin 40 mg tablet 40 mg PO QHS calcitriol 0.25 mcg capsule 0.25 mcg PO BID Trulicity 1.5 mg/0.5 mL pen injector SUBCUT .every thursday sevelamer HCl 800 mg tablet 1,600 mg PO QHS sodium bicarbonate 650 mg tablet 650 mg PO QHS Eliquis 2.5 mg tablet 2.5 mg PO BID sertraline 50 mg tablet 50 mg PO QHS hydroxyzine HCl 50 mg tablet 50 mg PO Q6H PRN (Reason: itching) amitriptyline 100 mg tablet 100 mg PO QHS acetaminophen 325 mg Tablet 650 mg PO Q4H PRN PRN (Reason: Fever, pain 1-12/09) Qty: 0 0RF insulin lispro [Humalog KwikPen Insulin] 100 unit/mL Insulin Pen See Protocol subcut ACHS Qty: 0 0RF Protocol: 3. Sliding Scale Insulin Med Dosing Condition: 150-189 mg/dl = 1 unit Condition: 190-229 mg/dl = 2 units Condition: 230-269 mg/dl = 3 units Condition: 270-309 mg/dl = 4 units Condition: 310-349 mg/dl = 5 units Condition: 350-399 mg/dl = 6 units Condition: 400-449 mg/dl = 7 units Condition: Greater than 449 call physician Protocol Text: - Use for Total Daily Dose of Insulin 37-55 units - Obsese, infected, or steroid patients MEDIUM DOSING ALGORITHIM lidocaine 5 % Adhesive Patch,Medicated 2 patch topical DAILY Qty: 0 0RF Protocol: *Topical Application Instructions APPLICATION INSTRUCTIONS: R hip, R knee methylprednisolone 4 mg Tablets,Dose Pack 4 mg PO 0800,1200,1700 Qty: 0 0RF oxycodone 5 mg Tablet 5 mg PO Q4H PRN PRN (Reason: Pain Score 4-10) 3 Days Qty: 12 0RF Remove Patch 1 patch topical DAILY@2200 Qty: 0 0RF oxycodone 5 mg tablet 5 mg PO Q8H PRN (Reason: pain) 3 Days Qty: 10 0RF Primary Care Provider: Aki Archibald Referrals: Aki Archibald MD [Primary Care Provider] - As Needed Activity Restrictions/Additional Instructions: Call your orthopedic surgeon for close follow-up, recheck, repeat x-rays. Disposition Disposition: Home, Self Care
[2023-01-13 12:34] VITALS: BMI 32.1
--- NOTE | 2023-01-13 13:02 | RAD_ITS ---
STUDY: X-RAY - RIGHT TIBIA AND FIBULA REASON FOR EXAM: Female, 57 years old. Pain, hx of recent fracture TECHNIQUE: 2 view(s) of the tibia and fibula were obtained. COMPARISON: Comparison is made with prior study dated October 15, 2022. FINDINGS: Increased sclerosis in the proximal tibial metaphysis in keeping with a healed fracture. At this time however, there is a 1.5 cm x 1.1 cm lucency along the medial posterior cortex of the proximal tibia. Infectious process should be ruled out. Normal visualized fibula. Vascular calcification. RAD/Tibia & Fibula 2 Views IMPRESSION: Healed fracture in the proximal tibia with focal lucency as described. Infectious processes should be ruled out. Electronically Signed: Piter Dietrich MD at 13:16 EST ,
[2023-01-13 14:29] VITALS: BP 122/79; PULSE 68; RESP 15; O2SAT 97
== END 2023-01-13 14:30 | disposition home or self-care (01) ==
PROVIDERS: Emergency Provider Emergency Medicine; PCP Family Medicine; Visit Provider Emergency Medicine
DX: M84.361G Stress fracture, right tibia, subsequent encounter for fracture with delayed healing (principal); Z99.2 Dependence on renal dialysis; J44.9 Chronic obstructive pulmonary disease, unspecified; E11.22 Type 2 diabetes mellitus with diabetic chronic kidney disease; E11.40 Type 2 diabetes mellitus with diabetic neuropathy, unspecified; N18.4 Chronic kidney disease, stage 4 (severe); E78.5 Hyperlipidemia, unspecified; Z87.891 Personal history of nicotine dependence; I12.9 Hypertensive chronic kidney disease with stage 1 through stage 4 chronic kidney disease, or unspecified chronic kidney disease; M48.00 Spinal stenosis, site unspecified
CPT/HCPCS: 73590; 99282

== ENCOUNTER 2023-01-15 11:38 | Emergency (ER) | payer BC, SELFPAY ==
[2023-01-15 11:39] VITALS: BP 137/65; PULSE 78; RESP 16; TEMP 36.3; O2SAT 99; BMI 31.6
--- NOTE | 2023-01-15 12:29 | VDLE_ITS ---
Reason For Study: Right leg pain RIGHT GSV is normal. CFV is compressible, spontaneous, phasic, competent and demonstrates normal augmentation. FV is compressible, spontaneous, phasic, competent and demonstrates normal augmentation. POP V is compressible, spontaneous, phasic, competent and demonstrates normal augmentation. T/P Trunk is compressible. PTV is compressible. RT PerV is compressible. Procedure This is a venous duplex using B-mode, color flow and spectral Doppler. Exam performed portable in ED. A preliminary report was called and/or faxed to Dr. Kim. VL/Venous Duplex US, Unilateral Interpretation Summary There is no evidence of right lower extremity deep vein thrombosis. Right great saphenous vein appears patent and compressible segmentally. Ordering Physician: Quentin Kim Referring Physician: Aki Archibald Performed By: Jacy Tim RVT
[2023-01-15] MEDS: oxyCODONE 5 MG Tablet PO (12:54)
--- NOTE | 2023-01-15 13:21 | EDS_ITS ---
HPI History of Present Illness Chief Complaint: Lower Extremity Injury Informant: patient Narrative Narrative: Presents worsening pain right lower extremity for past 4 days. Pain from knee down to her ankle. She was seen 2 days ago with x-rays. She states she was ambulatory at that time. She has been using naproxen. Today after dialysis unable to walk. Still makes urine. Denies fevers. Denies recent travel or surgeries. 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 She was on anticoagulants. States no ultrasound was performed 2 days ago. Additional history reports had a fracture of her tibia this past September, she followed with her orthopedist last month Dr. Riggs through [facility]. She had no symptoms and improving pain at that time. She is concerned of sciatica symptoms, however no current back pain she has had mild symptoms a week ago. Denies any new injuries. Prior similar symptoms: Yes [facility] Medical History Anxiety and depression Benign essential hypertension Bipolar disorder Chronic anemia COPD with asthma Diabetes mellitus, type 2 Fibromyalgia Former tobacco use History of diabetes mellitus, type II HLD (hyperlipidemia) HTN (hypertension) Kidney disease, chronic, stage IV (GFR 15-29 ml/min) Neuropathy Obesity Home Medications cholecalciferol (vitamin D3) 25 mcg (1,000 unit) capsule (Vitamin D3) 5,000 unit PO DAILY 10/03/13 [History Last Taken 1 Day Ago ~11/24/16] omeprazole 20 mg capsule,delayed release 20 mg PO DAILY 08/23/14 [History Last Taken 11/25/16] glipizide 5 mg tablet 10 mg PO DAILY 04/28/15 [History Last Taken 11/25/16] labetalol 200 mg tablet 200 mg PO BID 04/28/15 [History Last Taken 11/25/16] aspirin 81 mg tablet,delayed release (Aspir-Low) 81 mg PO DAILY 05/27/16 [History Last Taken 11/25/16] melatonin 5 mg capsule 5 mg PO QHS 05/27/16 [History Last Taken 1 Day Ago ~11/24/16] ferrous sulfate 325 mg (65 mg iron) tablet (Iron (ferrous sulfate)) 325 mg PO DAILY 11/25/16 [History Last Taken 11/25/16] amitriptyline 100 mg tablet 100 mg PO QHS sleep 09/10/22 [History Last Taken 09/08/22 21:00] apixaban 2.5 mg tablet (Eliquis) 2.5 mg PO BID 09/10/22 [History Last Taken Unknown] atorvastatin 40 mg tablet 40 mg PO QHS hyperlipidemia 09/10/22 [History Last Taken Unknown] calcitriol 0.25 mcg capsule 0.25 mcg PO BID 09/10/22 [History Last Taken Unknown] dulaglutide 1.5 mg/0.5 mL subcutaneous pen injector (Trulicity) mg subcut .every thursday diabetes 09/10/22 [History Last Taken 09/07/22 20:01] hydroxyzine HCl 50 mg tablet 50 mg PO Q6H PRN itching 09/10/22 [History Last Taken Unknown] sertraline 50 mg tablet 50 mg PO QHS bipolar 09/10/22 [History Last Taken 09/08/22 21:00] sevelamer HCl 800 mg tablet 1,600 mg PO QHS 09/10/22 [History Last Taken Unknown] sodium bicarbonate 650 mg tablet 650 mg PO QHS 09/10/22 [History Last Taken Unknown] Remove Patch 1 patch topical DAILY@2200 ##0 09/11/22 [Rx Last Taken Unknown] acetaminophen 325 mg tablet 650 mg (2 x 325 mg) PO Q4H PRN PRN Fever, pain 1- 12/09 #0 tabs 09/11/22 [Rx Last Taken Unknown] insulin lispro 100 unit/mL subcutaneous pen (Humalog KwikPen (U-100) Insulin) See Protocol subcut ACHS #0 mL 09/11/22 [Rx Last Taken Unknown] lidocaine 5 % topical patch 2 patch topical DAILY #0 ea 09/11/22 [Rx Last Taken Unknown] methylprednisolone 4 mg tablets in a dose pack 4 mg PO 0800,1200,1700 #0 tabs 09/11/22 [Rx Last Taken Unknown] oxycodone 5 mg tablet 5 mg PO Q4H PRN PRN Pain Score 4-10 3 days #12 tabs 09/11/22 [Rx Last Taken Unknown] oxycodone 5 mg tablet 5 mg PO Q8H PRN pain 3 days #10 tabs 10/15/22 [Rx Last Taken Unknown] naproxen 500 mg tablet (Naprosyn) 500 mg PO BID PRN pain #14 tabs 01/13/23 [Rx Last Taken Unknown] docusate sodium 100 mg capsule (DOK) 100 mg PO DAILY #20 CAPSULES 01/15/23 [Rx Last Taken Unknown] oxycodone-acetaminophen 5 mg-325 mg tablet 1 tab PO Q6H PRN PRN Pain 3 days #12 TABLETS 01/15/23 [Rx Last Taken Unknown] Allergy/AdvReac Type Severity Reaction Status Date / Time balsam carin Allergy Unknown UNKNOWN Verified 01/13/23 12:03 mold Allergy Unknown unknown Verified 01/13/23 12:03 lisinopril Allergy unknown Verified 01/13/23 12:03 Penicillins Allergy Anaphylaxis Verified 01/13/23 12:03 tetracycline [Tetracycline] Allergy Anaphylaxis Verified 01/13/23 12:03 codeine AdvReac Abd Verified 01/13/23 12:03 cramps/diarrhea diphenhydramine HCl AdvReac Upset Verified 01/13/23 12:03 [From Benadryl] Stomach hydrocodone bitartrate AdvReac Abd Verified 01/13/23 12:03 [From Vicodin] cramps/diarrhea NSAIDS (Non-Steroidal AdvReac Unknown Verified 01/13/23 12:03 Anti-Inflamma Family History Mother Heart disease Hypertension Diabetes Kidney disease Father Diabetes Surgical History H/O gastric bypass H/O vascular surgery S/P appendectomy S/P cholecystectomy Social History household members: none Smoking Status: Former smoker how long ago did patient quit smoking: Quit age 24. alcohol intake: never substance use type: does not use ROS ROS ED Constitutional Constitutional ED: Denies chills, fever(s) or sweats Eyes Eyes: Denies change in vision ENT ENT ED: Denies dysphagia or sore throat Cardiovascular Cardiovascular: Denies chest pain, leg edema, palpitations or racing heartbeat Respiratory/Chest Respiratory/Chest: Denies cough, dyspnea or dyspnea on exertion Gastrointestinal Gastrointestinal: Denies abdominal pain, diarrhea, nausea or vomiting Genitourinary Genitourinary ED: Denies dysuria, hematuria or urinary frequency Musculoskeletal Musculoskeletal: Reports extremity pain; Denies back pain or neck pain Integumentary Denies rash or wounds Neurologic Neurologic: Denies headache(s), paresthesias or weakness EXAM Physical Exam Const Vital Signs: 01/15/23 11:39 01/15/23 16:58 Temperature 97.4 F L Temperature Source Temporal Pulse Rate 78 67 Respiratory Rate 16 15 Blood Pressure 137/65 H Blood Pressure Mean 89 Pulse Ox 99 97 Oxygen Delivery Method Room Air Positive well nourished and well developed General Appearance ED: well developed and NAD HEENT Reports moist mucous membranes normocephalic and atraumatic Eyes PERRL, EOMs intact bilaterally and conjunctivae normal General Eye ED: Yes normal appearance of both eyes Neck no lymphadenopathy and supple General: Negative for tenderness Chest Wall Chest: Negative for tenderness Resp normal respiratory effort and normal air movement Effort and Inspection: symmetric chest movement; Negative for respiratory distress Cardio regular rate, regular rhythm and no murmurs Peripheral Pulses: pulses 2+ throughout GI normal to inspection, nondistended, normoactive bowel sounds and non-tender Palpation: Negative for guarding or rebound tenderness present Back/Spine no CVA tenderness and no thoracic nor lumbar tenderness Extremity Extremity Narrative: Right lower extremity: No asymmetric swelling no medial thigh pain however there is calf tenderness on exam. There were pulses 1+ symmetric of DP bilaterally. TTP proximal tibia. General Extremety ED: Negative for edema or tenderness General Extremity: Negative for edema Neuro oriented x3 and no sensory deficits noted Sensorium / Orientation: awake and alert Skin no rashes or lesions noted and no wounds MDM MDM MDM Narrative Medical decision making narrative: Interventions / MDM: Differential diagnosis:Leg pain, remote fx Diagnosis considered but do not suspect: DVT, however US negative, no cliinical arterial thrombus My EKG interpretation: N/A Imaging independently reviewed and interpreted by myself: N/A External documents reviewed: N/A Test considered but not ordered:N/A ED course: Increase pain over previous fx site, calf pain. Oxycodone PO, DVT studies ordered. US negative, Ronald wrap over leg, attempted ambulate, patient not willing to put wait. d/w with case management to evaluation in ED, No admission criteria, d/w options for rehab, but with have financial burden on patient, she was unable to provide. Redicussed with patient has walker and crutches at home for which she would rather use crutches. Outpatient follow up with her orthopedist and PCP. Case management gave [facility] resources. Rx Percocet and colace to pharmacy. All questions answered. Re-evaluation: stable Disposition discussed with patient/family/significant other: patient Case discussed with consulting clinician: Case management. This note was generated with [employer] dictation software. It may contain incorrect words, spelling, and punctuation that were not noted in checking the note before signing. Radiography Diagnostic Testing: Clinical Impression(s) from Imaging Studies Venous Doppler Study 01/15/23 12:29 Interpretation Summary There is no evidence of right lower extremity deep vein thrombosis. Right great saphenous vein appears patent and compressible segmentally. Ordering Physician: Quentin Kim Referring Physician: Aki Archibald Performed By: Jacy Tim RVT Discharge Plan Triage Chief Complaint: Lower Extremity Injury ED Provider: Quentin Kim Dx/Rx/DC Orders Clinical Impression: Right leg pain, History of fracture Instructions: Taking Opioid Medicines Prescriptions: New oxycodone-acetaminophen [oxycodone-acetaminophen] 5-325 mg tablet 1 tab PO Q6H PRN PRN (Reason: Pain) 3 Days Qty: 12 0RF docusate sodium [DOK] 100 mg capsule 100 mg PO DAILY Qty: 20 0RF No Action cholecalciferol (vitamin D3) [Vitamin D3] 1,000 UNIT capsule 5,000 unit PO DAILY omeprazole 20 MG capsule 20 mg PO DAILY labetalol 200 MG tablet 200 mg PO BID glipizide 5 MG tablet 10 mg PO DAILY aspirin [Aspir-Low] 81 MG tablet,delayed release (DR/EC) 81 mg PO DAILY melatonin 5 MG capsule 5 mg PO QHS ferrous sulfate [Iron (ferrous sulfate)] 325 MG tablet 325 mg PO DAILY atorvastatin 40 mg tablet 40 mg PO QHS calcitriol 0.25 mcg capsule 0.25 mcg PO BID Trulicity 1.5 mg/0.5 mL pen injector SUBCUT .every thursday sevelamer HCl 800 mg tablet 1,600 mg PO QHS sodium bicarbonate 650 mg tablet 650 mg PO QHS Eliquis 2.5 mg tablet 2.5 mg PO BID sertraline 50 mg tablet 50 mg PO QHS hydroxyzine HCl 50 mg tablet 50 mg PO Q6H PRN (Reason: itching) amitriptyline 100 mg tablet 100 mg PO QHS acetaminophen 325 mg Tablet 650 mg PO Q4H PRN PRN (Reason: Fever, pain 1-12/09) Qty: 0 0RF insulin lispro [Humalog KwikPen Insulin] 100 unit/mL Insulin Pen See Protocol subcut ACHS Qty: 0 0RF Protocol: 3. Sliding Scale Insulin Med Dosing Condition: 150-189 mg/dl = 1 unit Condition: 190-229 mg/dl = 2 units Condition: 230-269 mg/dl = 3 units Condition: 270-309 mg/dl = 4 units Condition: 310-349 mg/dl = 5 units Condition: 350-399 mg/dl = 6 units Condition: 400-449 mg/dl = 7 units Condition: Greater than 449 call physician Protocol Text: - Use for Total Daily Dose of Insulin 37-55 units - Obsese, infected, or steroid patients MEDIUM DOSING ALGORITHIM lidocaine 5 % Adhesive Patch,Medicated 2 patch topical DAILY Qty: 0 0RF Protocol: *Topical Application Instructions APPLICATION INSTRUCTIONS: R hip, R knee methylprednisolone 4 mg Tablets,Dose Pack 4 mg PO 0800,1200,1700 Qty: 0 0RF oxycodone 5 mg Tablet 5 mg PO Q4H PRN PRN (Reason: Pain Score 4-10) 3 Days Qty: 12 0RF Remove Patch 1 patch topical DAILY@2200 Qty: 0 0RF naproxen [Naprosyn] 500 mg tablet 500 mg PO BID PRN (Reason: pain) Qty: 14 0RF oxycodone 5 mg tablet 5 mg PO Q8H PRN (Reason: pain) 3 Days Qty: 10 0RF Primary Care Provider: Aki Archibald Referrals: Aki Archibald MD [Primary Care Provider] - 1 Day Activity Restrictions/Additional Instructions: Usual walker or crutches at home as needed. Pain medicines at your pharmacy you stool softeners to prevent constipation. Case management evaluate you, additional resources for home health care. Follow-up with your doctor for additional help to set up home care. Your leg x-ray 2 days ago notes a healing fracture, your ultrasound today negative for DVT. Disposition Disposition: Home, Self Care Discharge Date/Time: 01/15/23 16:58
--- NOTE | 2023-01-15 16:00 | CM.ED ---
Social Work SW consulted by physician for patient needs. Pt here twice this week for leg pain. SW introduced self and role to patient. SW explored needs with patient. Pt reports they are unable to walk. Pt reports 4 steps into their home then everything is on one level. Pt has walker for use. Pt reports, I can't stand on my leg. SW discussed using walker and pt said they cannot because they cannot walk because it hurts. Pt reports, I cannot go home because I can't work. SW explored pt's options for help and her niece and nephew reside in the home. Pt reports they work and cannot help. SW discussed home health and private pay options. Pt denies being able to self-pay and does not believe therapy is necessary because she cannot walk. Nursing to ambulate patient. Physician to reports pain to be addressed. SW provided private duty list and [facility] list. Lindy Maciel [employer], [employer]
[2023-01-15 16:58] VITALS: PULSE 67; RESP 15; O2SAT 97
== END 2023-01-15 16:58 | disposition home or self-care (01) ==
PROVIDERS: Emergency Provider Emergency Medicine; PCP Family Medicine; Visit Provider Emergency Medicine
DX: M79.604 Pain in right leg (principal); Z99.2 Dependence on renal dialysis; J44.9 Chronic obstructive pulmonary disease, unspecified; E11.22 Type 2 diabetes mellitus with diabetic chronic kidney disease; E11.40 Type 2 diabetes mellitus with diabetic neuropathy, unspecified; N18.4 Chronic kidney disease, stage 4 (severe); I12.9 Hypertensive chronic kidney disease with stage 1 through stage 4 chronic kidney disease, or unspecified chronic kidney disease; Z87.891 Personal history of nicotine dependence; E78.5 Hyperlipidemia, unspecified; Z86.718 Personal history of other venous thrombosis and embolism; Z87.81 Personal history of (healed) traumatic fracture
CPT/HCPCS: 93971; 99282

== ENCOUNTER 2023-01-19 07:11 | Inpatient (IN) | payer BC, SELFPAY ==
[2023-01-19 07:13] VITALS: BP 141/70; PULSE 86; RESP 22; TEMP 36.5; O2SAT 98; BMI 36.6
--- NOTE | 2023-01-19 07:24 | ED.VIS.LOWEX ---
HPI History of Present Illness Chief Complaint: Lower Extremity Injury Narrative Narrative: 57-year-old female with right leg pain. Patient states she had a fall today. She was walking out of her house and her leg gave out on her. Patient reports pain throughout the entire leg from the hip to the tip of her toes. She cannot localize any pain. Denies numbness or tingling. Patient states she fell on her buttocks and did not actually injure her leg initially but then reports that maybe her leg was tucked under her. Denies head injury or LOC. She is not on any blood thinners. She takes a daily aspirin. She states she was otherwise in her normal state of health prior to the fall. She is end-stage renal disease on dialysis Thursday, Thursday, Thursday. Patient reports she is been here twice this week with right leg pain and she states nobody found anything. [facility] Medical History (Updated 01/19/23 @ 13:[address] Mone Riggs MD) Anxiety and depression Benign essential hypertension Bipolar disorder Chronic anemia COPD with asthma Diabetes mellitus, type 2 Fibromyalgia Former tobacco use History of diabetes mellitus, type II HLD (hyperlipidemia) HTN (hypertension) Kidney disease, chronic, stage IV (GFR 15-29 ml/min) Neuropathy Obesity Home Medications cholecalciferol (vitamin D3) 25 mcg (1,000 unit) capsule (Vitamin D3) 5,000 unit PO DAILY 10/03/13 [History Last Taken 01/18/23] omeprazole 20 mg capsule,delayed release 20 mg PO DAILY 08/23/14 [History Last Taken 01/18/23] glipizide 5 mg tablet 10 mg PO DAILY 04/28/15 [History Last Taken 01/18/23] labetalol 200 mg tablet 100 mg PO BID 04/28/15 [History Last Taken 01/18/23] aspirin 81 mg tablet,delayed release (Aspir-Low) 81 mg PO DAILY 05/27/16 [History Last Taken 01/18/23] melatonin 5 mg capsule 5 mg PO QHS 05/27/16 [History Last Taken 01/18/23] ferrous sulfate 325 mg (65 mg iron) tablet (Iron (ferrous sulfate)) 325 mg PO DAILY 11/25/16 [History Last Taken 01/18/23] amitriptyline 100 mg tablet 100 mg PO QHS sleep 09/10/22 [History Last Taken 01/18/23] atorvastatin 40 mg tablet 40 mg PO QHS hyperlipidemia 09/10/22 [History Last Taken 01/18/23] calcitriol 0.25 mcg capsule 0.25 mcg PO BID 09/10/22 [History Last Taken 01/18/23] dulaglutide 1.5 mg/0.5 mL subcutaneous pen injector (Trulicity) 1.5 mg subcut QWEEK diabetes 09/10/22 [History Last Taken 01/18/23] hydroxyzine HCl 50 mg tablet 50 mg PO Q6H PRN itching 09/10/22 [History Last Taken Unknown] sertraline 50 mg tablet 50 mg PO QHS bipolar 09/10/22 [History Last Taken 01/18/23] sodium bicarbonate 650 mg tablet 650 mg PO QHS 09/10/22 [History Last Taken 01/18/23] acetaminophen 325 mg tablet 650 mg (2 x 325 mg) PO Q4H PRN PRN Fever, pain 1-12/09 #0 tabs 09/11/22 [Rx Last Taken 01/19/23] oxycodone 5 mg tablet 5 mg PO Q8H PRN pain 3 days #10 tabs 10/15/22 [Rx Last Taken Unknown] docusate sodium 100 mg capsule (DOK) 100 mg PO DAILY #20 CAPSULES 01/15/23 [Rx Last Taken Unknown] Allergy/AdvReac Type Severity Reaction Status Date / Time [facility] Allergy Unknown UNKNOWN Verified 01/19/23 07:12 mold Allergy Unknown unknown Verified 01/19/23 07:12 lisinopril Allergy unknown Verified 01/19/23 07:12 Penicillins Allergy Anaphylaxis Verified 01/19/23 07:12 tetracycline [Tetracycline] Allergy Anaphylaxis Verified 01/19/23 07:12 codeine AdvReac Abd Verified 01/19/23 07:12 cramps/diarrhea diphenhydramine HCl AdvReac Upset Verified 01/19/23 07:12 [From Benadryl] Stomach hydrocodone bitartrate AdvReac Abd Verified 01/19/23 07:12 [From Vicodin] cramps/diarrhea NSAIDS (Non-Steroidal AdvReac Unknown Verified 01/19/23 07:12 Anti-Inflamma Family History Mother Heart disease Hypertension Diabetes Kidney disease Father Diabetes Surgical History H/O gastric bypass H/O vascular surgery S/P appendectomy S/P cholecystectomy Social History household members: none Smoking Status: Former smoker how long ago did patient quit smoking: Quit age 24. alcohol intake: never substance use type: does not use ROS ROS ED Constitutional Constitutional ED: Denies chills, fever(s) or sweats Eyes Eyes: Denies blurry vision or change in vision ENT ENT ED: Denies ear pain or sore throat Cardiovascular Cardiovascular: Denies chest pain, palpitations or racing heartbeat Respiratory/Chest Respiratory/Chest: Denies cough, dyspnea or sputum Gastrointestinal Gastrointestinal: Denies abdominal pain, constipation, diarrhea, nausea or vomiting Genitourinary Genitourinary ED: Denies dysuria, hematuria or urinary frequency Musculoskeletal Musculoskeletal: Reports other Details: Right hip, femur, knee, tib-fib, ankle, foot pain ; Denies arthralgias, myalgias or neck pain Integumentary Denies abscess, Abrasions or rash Neurologic Neurologic: Denies headache(s), paresthesias or weakness Psychiatric Psychiatric: Denies anxiety, depression, suicidal ideation or suicidal thoughts Endocrine Endocrinology: Denies polydipsia or polyuria EXAM Physical Exam Const Vital Signs: 01/19/23 07:13 01/19/23 13:40 Temperature 97.7 F L Temperature Source Temporal Pulse Rate 86 91 Respiratory Rate 22 H 15 Blood Pressure 141/70 H 139/88 H Blood Pressure Mean 93 105 Pulse Ox 98 97 Oxygen Delivery Method Room Air Room Air Positive well nourished and obese Nutritional Appearance: obese HEENT Reports moist mucous membranes normocephalic and atraumatic Chest Wall inspection of chest normal Resp normal respiratory effort Cardio regular rate and regular rhythm GI non-tender Back/Spine Thoracic Spine / Upper Back: Negative for thoracic spinal tenderness Lumbar Spine / Lower Back: Negative for lumbar spinal tenderness or straight leg raise positive - left Extremity Extremity Narrative: Tenderness to palpation diffusely over the right hip, posterior femur, patella and tib-fib. She also has had some tenderness to palpation over the right ankle and foot. Neurovascular intact with brisk cap refill to all 5 toes. Limited range of motion secondary to pain and the patient is immobilized in a splint currently. I do not see any evidence of deformity initially. Neuro oriented x3 and CN's II-XII intact bilaterally Sensorium / Orientation: alert Motor Exam: strength 5/5 throughout Psych mental status grossly normal MDM MDM MDM Narrative Medical decision making narrative: Patient presenting with right leg pain after mechanical fall. She has pain in the right hip, right femur, right knee, right tib-fib, right ankle, right foot. Differential includes hip fracture femur fracture patellar fracture quadriceps tendon rupture, patellar tendon rupture, tib-fib fracture, ankle fracture, foot fracture. Currently I am unable to fully assess the patient's leg as she is immobilized in a splint. Patient medicated with morphine, Zofran. X-rays of the lower extremity will be obtained. X-rays of the right hip, right femur, right knee, right tib-fib, right foot on my interpretation do not show both bone fracture of the proximal tibia and fibula. Discussed with Dr. Tucker who recommended getting a CT of the lower extremity to include the fracture. This was performed and shows a fracture again in the same place. Screening lab work at baseline. Patient end-stage renal disease on dialysis. Patient given a couple doses of morphine. Dr. Tucker recommended that I do a long posterior splint which was performed. This was well-padded and fabricated by myself. Patient tolerated procedure well. Neurovascular intact post procedurally. Patient discussed with hospitalist for admission. Impression 1. Proximal fibular fracture 2. Proximal tibia fracture Lab Data Attestation: I reviewed the patient's lab results. Labs: Laboratory Results - last 24 hr 01/19/23 07:24 WBC 5.4 RBC 3.37 L Hgb 10.2 L Hct 34.2 L MCV 101.5 H MCH 30.3 MCHC 29.8 L RDW Std Deviation 54.0 H RDW Coeff of Ben 14.4 Plt Count 164 MPV 9.1 Immature Gran % (Auto) 0.400 Neut % (Auto) 59.5 Lymph % (Auto) 27.1 Coles % (Auto) 8.2 Eos % (Auto) 4.1 Baso % (Auto) 0.7 Absolute Neuts (auto) 3.2 Absolute Lymphs (auto) 1.46 Nucleated RBC % 0 Sodium 140 Potassium 5.3 H Chloride 106 Carbon Dioxide 25.0 Anion Gap 9 BUN 47 H Creatinine 5.31 H Estim Creat Clear Calc 11.79 Est GFR (MDRD) Af Amer 11 L Est GFR (MDRD) Non-Af 9 L BUN/Creatinine Ratio 8.9 L Glucose 97 Calcium 8.5 Radiography Diagnostic Testing: Clinical Impression(s) from Imaging Studies Femur X-Ray 01/19/23 08:00 IMPRESSION: No demonstrated right femur fracture. Electronically Signed: Alejandro Blanchard MD at 8:24 EST , Foot X-Ray 01/19/23 08:00 IMPRESSION: Plantar calcaneal spur. No demonstrated acute fracture. Electronically Signed: Alejandro Blanchard MD at 8:37 EST , Knee X-Ray 01/19/23 08:00 IMPRESSION: New fracture of the proximal fibular shaft. More distinct transverse lucency across the proximal tibial shaft compared to the prior study, concerning for a new refracture. Stable tricompartment degenerative arthrosis. Electronically Signed: Alejandro Blanchard MD at 8:34 EST , Pelvis X-Ray 01/19/23 08:00 IMPRESSION: No fracture or dislocation in the pelvis. Mild degenerative changes in the hips. Electronically Signed: Deshawn Galeana MD at 8:36 EST , Tibia/Fibula X-Ray 01/19/23 08:00 IMPRESSION: New fracture of the proximal fibular shaft. Suspected transverse refracture of the proximal tibial shaft. Electronically Signed: Alejandro Blanchard MD at 8:30 EST , Lower Extremity CT 01/19/23 10:00 IMPRESSION: Complete fractures through the proximal tibial and fibular metadiaphyses. Subcutaneous soft tissue edema along the anterior aspect of the proximal calf. Electronically Signed: Alejandro Blanchard MD at 10:35 EST , Discharge Plan Triage Chief Complaint: Lower Extremity Injury ED Provider: Yariel Wilks Dx/Rx/DC Orders Primary Care Provider: Aki Archibald
[2023-01-19 07:38] LABS: Absolute Lymphocyte Count 1.46 X10^3/uL (0.83-4.51); Absolute Neutrophil Count 3.2 X10^3/uL (2.0-7.7); Basophil# 0.04 X10^3/uL; Basophil% 0.7 % (0-1); Eosinophil# 0.22 X10^3/uL; Eosinophils% 4.1 % (0-5); Hematocrit 34.2 % (37-47); Hemoglobin 10.2 g/dL (12.0-15.0); Lymphocyte # 1.46 X10^3/ul (0.83-4.51); Lymphocyte % 27.1 % (19-41); Mean Corp Hgb Conc 29.8 g/dL (32-36); Mean Corpuscular Hgb 30.3 pg (27.0-32.0); Mean Corpuscular Volume 101.5 fL (81-99); Mean Platelet Vol. 9.1 fl (6.2-12.0); Monocyte# 0.44 X10^3/uL; Monocyte% 8.2 % (0-10); NRBC Flagged by Analyzer 0 % (0-5); Neutrophil % 59.5 % (47-70); Platelet Count 164 K/mm3 (150-450); RBC Distribution Width CV 14.4 % (11.6-14.6); Red Blood Count 3.37 M/mm3 (4.2-5.4); White Blood Count 5.4 K/mm3 (4.4-11.0)
[2023-01-19 07:47] LABS: Anion Gap 9 (5-15); BUN 47 mg/dL (7-18); BUN/Creat Ratio 8.9 RATIO (10-20); Calcium,Total 8.5 mg/dL (8.5-10.1); Chloride 106 mmol/L (98-107); Creatinine, Serum 5.31 mg/dL (0.55-1.02); EST Glomerular Filtration Rate 9 mL/min (>60); Est Glom Filt Rate - Afr Amer 11 mL/min (>60); Estimated Creatinine Clearance 11.79 ml/min; Glucose 97 mg/dL (74-106); Potassium 5.3 mmol/L (3.5-5.1); Sodium Level 140 mmol/L (136-145)
[2023-01-19] MEDS: Ondansetron 4 MG/2 ML Vial IV ×2 (07:48→14:09)
[2023-01-19] MEDS: Morphine 4 MG/ML Syringe IV ×2 (07:49→14:09)
--- NOTE | 2023-01-19 08:00 | RAD_ITS ---
STUDY: X-RAY - RIGHT KNEE REASON FOR EXAM: Female, 57 years old. Pain. TECHNIQUE: 2 views of the right knee. COMPARISON: Right knee radiographs dated 09/07/2022. Right tibia/fibula radiographs dated 10/15/2022 FINDINGS: Normal visualized distal femur. Normal visualized proximal tibia and fibula. Normal proximal tibiofibular articulation. There is moderate degenerative arthrosis of the medial femorotibial compartment with moderate joint space narrowing. There is mild degenerative arthrosis of the lateral femorotibial compartment. There is mild degenerative arthrosis of the patellofemoral articulation. There is a new fracture of the proximal fibular shaft. There is more distinct transverse lucency across the proximal tibial shaft compared to the prior study, concerning for a new refracture. There are atherosclerotic calcifications. RAD/Knee 1 or 2 Views IMPRESSION: New fracture of the proximal fibular shaft. More distinct transverse lucency across the proximal tibial shaft compared to the prior study, concerning for a new refracture. Stable tricompartment degenerative arthrosis. Electronically Signed: Alejandro Blanchard MD at 8:34 EST ,
--- NOTE | 2023-01-19 08:00 | RAD_ITS ---
STUDY: X-RAY - RIGHT FEMUR REASON FOR STUDY: Female, 57 years old. Pain. TECHNIQUE: 6 views of the right femur. COMPARISON: None. FINDINGS: Normal visualized femur. There is no demonstrated femoral fracture or destructive process. There are atherosclerotic vascular calcifications. RAD/Femur Min 2 Views IMPRESSION: No demonstrated right femur fracture. Electronically Signed: Alejandro Blanchard MD at 8:24 EST ,
--- NOTE | 2023-01-19 08:00 | RAD_ITS ---
STUDY: X-RAY - RIGHT TIBIA AND FIBULA REASON FOR EXAM: Female, 57 years old. Pain. TECHNIQUE: 2 views of the right tibia and fibula were obtained. COMPARISON: Right tibia/fibula radiographs dated 01/13/2023. FINDINGS: There is a new fracture of the proximal fibular shaft. There is more distinct transverse lucency across the proximal tibial shaft compared to the prior study, concerning for a new refracture. There are atherosclerotic calcifications. RAD/Tibia & Fibula 2 Views IMPRESSION: New fracture of the proximal fibular shaft. Suspected transverse refracture of the proximal tibial shaft. Electronically Signed: Alejandro Blanchard MD at 8:30 EST ,
--- NOTE | 2023-01-19 08:00 | RAD_ITS ---
STUDY: X-RAY - PELVIS REASON FOR EXAM: Female, 57 years old. Pain TECHNIQUE: One view of the pelvis was obtained. COMPARISON: None. FINDINGS: There is no evidence of fracture or dislocation. There are mild degenerative changes in the hips. There are no radiodense foreign bodies. RAD/Pelvis 1 or 2 Views IMPRESSION: No fracture or dislocation in the pelvis. Mild degenerative changes in the hips. Electronically Signed: Deshawn Galeana MD at 8:36 EST ,
--- NOTE | 2023-01-19 08:00 | RAD_ITS ---
STUDY: X-RAY - RIGHT FOOT CLINICAL: Female, 57 years old. Pain. TECHNIQUE: 2 views of the right foot. COMPARISON: None. FINDINGS: Intact talus, calcaneus, and tarsal bones. There is a plantar calcaneal spur. Normal visualized subtalar, talonavicular, calcaneocuboid, tarsal and tarsometatarsal articulations. Normal metatarsi. Normal metatarsophalangeal joint of the great toe. Normal tibial and fibular sesamoid bones. Normal interphalangeal joint of the great toe. Normal phalanges of the great toe. Normal second through fifth metatarsophalangeal joints. Normal interphalangeal joints and phalanges of the lesser toes. There is no demonstrated fracture. There are atherosclerotic calcifications. RAD/Foot 2 Views IMPRESSION: Plantar calcaneal spur. No demonstrated acute fracture. Electronically Signed: Alejandro Blanchard MD at 8:37 EST ,
--- NOTE | 2023-01-19 10:00 | CT_ITS ---
CT RIGHT LOWER EXTREMITY WITH 3-D IMAGING CLINICAL INDICATION: Fracture. TECHNIQUE: Axial CT images of the right lower extremity was performed without IV contrast material. Coronal and sagittal reformats were provided. RADIATION DOSAGE (If Supplied By Facility): CTDIvol = ( 15.35 ) mGy, DLP = ( 633.92 ) mGycm COMPARISON: Right tibia/fibula radiographs dated 01/19/2023. FINDINGS: Bones: There is a complete transversely oriented fracture through the proximal tibial metadiaphysis with mild posteromedial angulation and up to 5 mm distraction anteriorly. There is some healing callus bone formation at the posteromedial margin with nonspecific mild lucency on both sides of the posteromedial fracture line. There are small soft tissue hematomas at the anterior margin of the tibial fracture. There is a complete fracture through the proximal fibular metadiaphysis. No discrete osseous masses. Soft Tissues: The deep soft tissue structures are unremarkable. There are atherosclerotic calcifications. There is subcutaneous soft tissue edema along the anterior aspect of the proximal calf. CT/Extremity Lower without Contra IMPRESSION: Complete fractures through the proximal tibial and fibular metadiaphyses. Subcutaneous soft tissue edema along the anterior aspect of the proximal calf. Electronically Signed: Alejandro Blanchard MD at 10:35 EST ,
[2023-01-19 13:40] VITALS: BP 139/88; PULSE 91; RESP 15; O2SAT 97
--- NOTE | 2023-01-19 13:43 | PCM.HP.STD ---
HPI - General General Date of Admission: 01/19/23 Date of Service: 01/19/23 Chief Complaint: RLE pain HPI Narrative Margareth OLIVARES, is a 57-year-old female with a history of COPD, type 2 diabetes mellitus, depression, hypertension, end-stage renal disease on dialysis Thursday, , Thursday, neuropathy, and obesity who presented to [facility] 01/19/2023 after a fall with right leg pain. She was walking out of her house and her leg gave out. She reportedly has been here twice this week with right leg pain but work-up has been negative. She had CT scan of right lower extremity in ED which showed complete fracture through proximal tibia and fibular metadiaphysis and soft tissue edema along the anterior aspect of the proximal calf. Surgery contacted who recommended patient have splint placed on leg and be medically admitted, unclear if she will end up being a surgical candidate, hospitalist contacted for admission. Patient evaluated at bedside and reports right lower extremity is in pain. She initially had a stress fracture of right lower extremity back in mid September and was following with Dr. Riggs with orthopedic surgery and had been doing well until roughly 01/09 when she began to have increasing pain. She was seen here twice since then with x-rays that did not show new/acute process. Today she was stepping out of her house and reports when she stepped down on her right leg just gave out. She presented here and was noted to have the broken tibia and fibula of the right lower extremity. She is on dialysis Thursday//Thursday and her last dialysis was last and she has been having pain with ambulation so she did not go. She does make urine however and does not feel short of breath or overloaded, she has no other new physical complaints. [facility] Medical History (Updated 01/19/23 @ 13:[address] Mone Riggs MD) Anxiety and depression Benign essential hypertension Bipolar disorder Chronic anemia COPD with asthma Diabetes mellitus, type 2 Fibromyalgia Former tobacco use History of diabetes mellitus, type II HLD (hyperlipidemia) HTN (hypertension) Kidney disease, chronic, stage IV (GFR 15-29 ml/min) Neuropathy Obesity Home Medications cholecalciferol (vitamin D3) 25 mcg (1,000 unit) capsule (Vitamin D3) 5,000 unit PO DAILY 10/03/13 [History Last Taken 01/18/23] omeprazole 20 mg capsule,delayed release 20 mg PO DAILY 08/23/14 [History Last Taken 01/18/23] glipizide 5 mg tablet 10 mg PO DAILY 04/28/15 [History Last Taken 01/18/23] labetalol 200 mg tablet 100 mg PO BID 04/28/15 [History Last Taken 01/18/23] aspirin 81 mg tablet,delayed release (Aspir-Low) 81 mg PO DAILY 05/27/16 [History Last Taken 01/18/23] melatonin 5 mg capsule 5 mg PO QHS 05/27/16 [History Last Taken 01/18/23] ferrous sulfate 325 mg (65 mg iron) tablet (Iron (ferrous sulfate)) 325 mg PO DAILY 11/25/16 [History Last Taken 01/18/23] amitriptyline 100 mg tablet 100 mg PO QHS sleep 09/10/22 [History Last Taken 01/18/23] atorvastatin 40 mg tablet 40 mg PO QHS hyperlipidemia 09/10/22 [History Last Taken 01/18/23] calcitriol 0.25 mcg capsule 0.25 mcg PO BID 09/10/22 [History Last Taken 01/18/23] dulaglutide 1.5 mg/0.5 mL subcutaneous pen injector (Trulicity) 1.5 mg subcut QWEEK diabetes 09/10/22 [History Last Taken 01/18/23] hydroxyzine HCl 50 mg tablet 50 mg PO Q6H PRN itching 09/10/22 [History Last Taken Unknown] sertraline 50 mg tablet 50 mg PO QHS bipolar 09/10/22 [History Last Taken 01/18/23] sodium bicarbonate 650 mg tablet 650 mg PO QHS 09/10/22 [History Last Taken 01/18/23] acetaminophen 325 mg tablet 650 mg (2 x 325 mg) PO Q4H PRN PRN Fever, pain 1-12/09 #0 tabs 09/11/22 [Rx Last Taken 01/19/23] oxycodone 5 mg tablet 5 mg PO Q8H PRN pain 3 days #10 tabs 10/15/22 [Rx Last Taken Unknown] docusate sodium 100 mg capsule (DOK) 100 mg PO DAILY #20 CAPSULES 01/15/23 [Rx Last Taken Unknown] Allergy/AdvReac Type Severity Reaction Status Date / Time balsam carin Allergy Unknown UNKNOWN Verified 01/19/23 07:12 mold Allergy Unknown unknown Verified 01/19/23 07:12 lisinopril Allergy unknown Verified 01/19/23 07:12 Penicillins Allergy Anaphylaxis Verified 01/19/23 07:12 tetracycline [Tetracycline] Allergy Anaphylaxis Verified 01/19/23 07:12 codeine AdvReac Abd Verified 01/19/23 07:12 cramps/diarrhea diphenhydramine HCl AdvReac Upset Verified 01/19/23 07:12 [From Benadryl] Stomach hydrocodone bitartrate AdvReac Abd Verified 01/19/23 07:12 [From Vicodin] cramps/diarrhea NSAIDS (Non-Steroidal AdvReac Unknown Verified 01/19/23 07:12 Anti-Inflamma Family History Mother Heart disease Hypertension Diabetes Kidney disease Father Diabetes Surgical History H/O gastric bypass H/O vascular surgery S/P appendectomy S/P cholecystectomy Social History household members: none Smoking Status: Former smoker how long ago did patient quit smoking: Quit age 24. alcohol intake: never substance use type: does not use ROS ROS Narrative General: Denies fever/chills HENT: Denies headache, denies stuffy nose, denies sore throat EYES: Denies changes in vision Resp: Denies cough, denies shortness of breath Cardiac: Denies chest pain GI: Denies abdominal pain, denies changes in bowel, denies nausea/vomiting : Denies changes in urination Extremity: Denies swelling MSK: Pain in right lower extremity Neuro: Some chronic neuropathy without acute changes Heme: Denies any bleeding or bruising Skin: Denies rashes Psychiatric: Has some chronic depression Vital Signs Vital Signs Vital Signs: 01/19/23 07:13 01/19/23 13:40 Temperature 97.7 F L Temperature Source Temporal Pulse Rate 86 91 Respiratory Rate 22 H 15 Blood Pressure 141/70 H 139/88 H Blood Pressure Mean 93 105 Pulse Ox 98 97 Oxygen Delivery Method Room Air Room Air Weight Weight: 109.2 kg Body Mass Index (BMI) 36.6 Physical Exam Narrative General: Alert, oriented, no apparent distress HEENT: Atraumatic, normocephalic Eyes: Anicteric, normal conjunctiva, extraocular movements grossly intact Neck: Supple Respiratory: Clear to auscultation bilaterally, normal respiratory effort Cardiovascular: Regular rate GI: Soft, nontender, nondistended Extremities: No edema Musculoskeletal: Right lower extremity immobilized Neuro: No overt focal neurological deficits Skin: No rashes appreciated Psych: Cooperative Results Lab / Micro Data 01/19/23 07:24 01/19/23 07:24 Labs: Laboratory Results - last 24 hr 01/19/23 07:24: WBC 5.4, RBC 3.37 L, Hgb 10.2 L, Hct 34.2 L, MCV 101.5 H, MCH 30.3, MCHC 29.8 L, RDW Std Deviation 54.0 H, RDW Coeff of Ben 14.4, Plt Count 164, MPV 9.1, Immature Gran % (Auto) 0.400, Neut % (Auto) 59.5, Lymph % (Auto) 27.1, Coles % (Auto) 8.2, Eos % (Auto) 4.1, Baso % (Auto) 0.7, Absolute Neuts (auto) 3.2, Absolute Lymphs (auto) 1.46, Nucleated RBC % 0, Sodium 140, Potassium 5.3 H, Chloride 106, Carbon Dioxide 25.0, Anion Gap 9, BUN 47 H, Creatinine 5.31 H, Estim Creat Clear Calc 11.79, Est GFR (MDRD) Af Amer 11 L, Est GFR (MDRD) Non-Af 9 L, BUN/Creatinine Ratio 8.9 L, Glucose 97, Calcium 8.5 Imagaing Radiology Impression Femur X-Ray 01/19/23 08:00 IMPRESSION: No demonstrated right femur fracture. Electronically Signed: Alejandro Blanchard MD at 8:24 EST , Foot X-Ray 01/19/23 08:00 IMPRESSION: Plantar calcaneal spur. No demonstrated acute fracture. Electronically Signed: Alejandro Blanchard MD at 8:37 EST , Knee X-Ray 01/19/23 08:00 IMPRESSION: New fracture of the proximal fibular shaft. More distinct transverse lucency across the proximal tibial shaft compared to the prior study, concerning for a new refracture. Stable tricompartment degenerative arthrosis. Electronically Signed: Alejandro Blanchard MD at 8:34 EST , Pelvis X-Ray 01/19/23 08:00 IMPRESSION: No fracture or dislocation in the pelvis. Mild degenerative changes in the hips. Electronically Signed: Deshawn Galeana MD at 8:36 EST , Tibia/Fibula X-Ray 01/19/23 08:00 IMPRESSION: New fracture of the proximal fibular shaft. Suspected transverse refracture of the proximal tibial shaft. Electronically Signed: Alejandro Blanchard MD at 8:30 EST , Lower Extremity CT 01/19/23 10:00 IMPRESSION: Complete fractures through the proximal tibial and fibular metadiaphyses. Subcutaneous soft tissue edema along the anterior aspect of the proximal calf. Electronically Signed: Alejandro Blanchard MD at 10:35 EST , Assessment & Plan Assessment/Plan (1) Fracture of right lower extremity: (2) History of COPD: (3) ESRD (end stage renal disease) on dialysis: PLAN: Plan #Complete fractures through R proximal tibia and fibula -Seen on CT -Schedule Tylenol, pain control, will give hydromorphone instead of morphine given end-stage renal disease -Long splint placed in ED, unclear if patient will end up being surgical candidate, per checkout no present plans for surgical intervention -Ortho consult, will make n.p.o. at midnight in the event she is deemed surgical candidate and if not patient will be okay to eat -We will need PT/OT #End-stage renal disease on dialysis Thursday, , Thursday -Nephrology consult -Potassium very slightly elevated at 5.3, will repeat -No signs or symptoms of fluid overload -Daily BMP -Daily weights, I's and O's #Type 2 diabetes mellitus -Glucose checks and sliding scale insulin -Holding glipizide and Trulicity #History of COPD -. Albuterol #Chronic anemia -Suspect secondary to renal disease/chronic disease -Appears to be at baseline -Continue to monitor CBC #Depression -Continue Zoloft #GERD -Continue PPI #Hypertension -Continue blood pressure medications and adjust as tolerated #DVT ppx: Heparin subcu Mone Riggs MD Time spent in the patient's overall evaluation,decision-making process, review of diagnostic data, adjustment of management, discussion with other providers, nursing nursing and ancillary staff involved in patient's care documentation, 60 minutes Charges/Coding Visit Charges Inpatient E&M: 46116 Init Hosp L2
[2023-01-19 14:49] LABS: Anion Gap 7 (5-15); BUN 49 mg/dL (7-18); BUN/Creat Ratio 9.2 RATIO (10-20); Calcium,Total 8.4 mg/dL (8.5-10.1); Chloride 107 mmol/L (98-107); Creatinine, Serum 5.34 mg/dL (0.55-1.02); EST Glomerular Filtration Rate 9 mL/min (>60); Est Glom Filt Rate - Afr Amer 11 mL/min (>60); Estimated Creatinine Clearance 11.73 ml/min; Glucose 88 mg/dL (74-106); Potassium 5.7 mmol/L (3.5-5.1); Sodium Level 141 mmol/L (136-145)
[2023-01-19 16:10] VITALS: BP 167/71; PULSE 88; RESP 15; TEMP 36.8; O2SAT 94
[2023-01-19 16:14] VITALS: BP 167/71; PULSE 87; RESP 17; O2SAT 98
[2023-01-19 16:31] VITALS: BMI 33.2
[2023-01-19] MEDS: Heparin Injection (Vial) 5,000 UNIT/ML VIAL 5000 UNIT SC ×2 (17:26→22:11)
[2023-01-19] MEDS: Calcium Gluconate 1 GM/10 ML Vial 0.5 GM IVP (17:26)
[2023-01-19] MEDS: Acetaminophen 500 MG Tablet 1000 MG PO ×2 (17:35→22:10)
[2023-01-19] MEDS: Furosemide 40 MG/4 ML Vial IV (17:36)
[2023-01-19] MEDS: 0.9% Saline Lock 10 ML Syringe IV ×2 (17:36→22:04)
[2023-01-19 17:38] LABS: Potassium 5.5 mmol/L (3.5-5.1)
[2023-01-19 18:00] LABS: Bedside Glucose 74 mg/dL (74-106)
[2023-01-19 18:00] LABS: Bedside Glucose 68 mg/dL (74-106)
[2023-01-19] MEDS: oxyCODONE 5 MG Tablet PO (19:55)
[2023-01-19] MEDS: Furosemide 40 MG/4 ML Vial 20 MG IV (21:59)
[2023-01-19 22:05] VITALS: BP 143/65; PULSE 85; RESP 16; TEMP 36.6; O2SAT 94
[2023-01-19] MEDS: Amitriptyline 100 MG Tablet PO (22:08)
[2023-01-19] MEDS: MELATONIN 10 MG TABLET 5 MG PO (22:09)
[2023-01-19] MEDS: Calcitriol 0.25 MCG Capsule PO (22:09)
[2023-01-19] MEDS: Atorvastatin Calcium 40 MG Tablet PO (22:09)
[2023-01-19] MEDS: Senna/Docusate Sodium 1 Tablet 2 TABLET PO (22:09)
[2023-01-19] MEDS: Labetalol 100 MG Tablet 50 MG PO (22:10)
[2023-01-19] MEDS: Sodium Bicarbonate 650 MG Tablet PO (22:10)
[2023-01-19] MEDS: Sertraline 50 MG Tablet PO (22:11)
[2023-01-19 22:41] LABS: Bedside Glucose 155 mg/dL (74-106)
[2023-01-20] VITALS (12 sets, daily range): BP systolic 94–236; BP diastolic 46–84; PULSE 73–92; RESP 14–16; TEMP 36.2–36.9; O2SAT 93–98; BMI 33.2; BMI 33.0; BMI 32.8
[2023-01-20 04:30] LABS: Absolute Lymphocyte Count 1.66 X10^3/uL (0.83-4.51); Basophil# 0.03 X10^3/uL; Basophil% 0.6 % (0-1); Eosinophils% 3.7 % (0-5); Hematocrit 30.4 % (37-47); Hemoglobin 9.2 g/dL (12.0-15.0); Lymphocyte # 1.66 X10^3/ul (0.83-4.51); Lymphocyte % 30.7 % (19-41); Mean Corp Hgb Conc 30.3 g/dL (32-36); Mean Corpuscular Hgb 30.5 pg (27.0-32.0); Mean Corpuscular Volume 100.7 fL (81-99); Mean Platelet Vol. 9.3 fl (6.2-12.0); Monocyte# 0.54 X10^3/uL; NRBC Flagged by Analyzer 0 % (0-5); Neutrophil # 2.96 X10^3/uL (2.7-7.7); Neutrophil % 54.6 % (47-70); Platelet Count 156 K/mm3 (150-450); RBC Distribution Width CV 14.3 % (11.6-14.6); RBC Distribution Width SD 52.1 fl (35.1-43.9); Red Blood Count 3.02 M/mm3 (4.2-5.4); White Blood Count 5.4 K/mm3 (4.4-11.0)
[2023-01-20] MEDS: oxyCODONE 5 MG Tablet PO ×3 (04:41→20:01)
[2023-01-20 04:56] LABS: Partial Thromboplast Time 36.9 Seconds (24.1-36.2)
[2023-01-20 05:10] LABS: Anion Gap 7 (5-15); BUN 55 mg/dL (7-18); BUN/Creat Ratio 9.3 RATIO (10-20); Calcium,Total 8.2 mg/dL (8.5-10.1); Chloride 105 mmol/L (98-107); Creatinine, Serum 5.89 mg/dL (0.55-1.02); EST Glomerular Filtration Rate 8 mL/min (>60); Est Glom Filt Rate - Afr Amer 10 mL/min (>60); Estimated Creatinine Clearance 10.63 ml/min; Glucose 96 mg/dL (74-106); Magnesium 2.1 mg/dL (1.6-2.6); Phosphorus 5.9 mg/dL (2.5-4.9); Sodium Level 138 mmol/L (136-145); Thyroid Stim Hormone (TSH) 3.09 uIU/mL (0.358-3.74)
[2023-01-20] MEDS: Acetaminophen 500 MG Tablet 1000 MG PO ×3 (06:15→21:57)
[2023-01-20] MEDS: Pantoprazole Sodium 20 MG Tablet PO (06:15)
[2023-01-20] MEDS: Labetalol 100 MG Tablet 50 MG PO ×2 (06:15→21:56)
[2023-01-20 06:41] LABS: Bedside Glucose 84 mg/dL (74-106)
[2023-01-20] MEDS: PureFlow B 2K Dialysis Soln 1 BAG 6 BAG PF (07:14)
[2023-01-20] MEDS: 0.9% Normal Saline 1,000 ML IV.SOLN. 1000 ML OPERA.SITE (07:14)
[2023-01-20] MEDS: Calcium Gluconate 1 GM/10 ML Vial IVP (07:31)
[2023-01-20] MEDS: Insulin Lispro 10 UNIT in Syringe 0 ML 6 UNIT IV (07:35)
[2023-01-20] MEDS: Dextrose 50%-Water 25 GM/50 ML DISP.SYRIN IV (07:38)
[2023-01-20] MEDS: 0.9% Saline Lock 10 ML Syringe IV (07:38)
--- NOTE | 2023-01-20 07:55 | PN.HOSP_ITS ---
Reason for Visit Reason for Visit: Diagnoses End stage renal disease (01/19/23) Unspecified fracture of right lower leg, initial encounter for closed fracture (01/19/23) Personal history of other diseases of the respiratory system (01/19/23) Dependence on renal dialysis (01/19/23) Objective Data Objective Data Vital Signs: Vital Signs Temp Pulse Resp BP Pulse Ox O2 Del Method 97.8 F 81 15 103/49 L 97 Room Air 01/20/23 06:03 01/20/23 06:51 01/20/23 06:51 01/20/23 06:51 01/20/23 06:51 01/20/23 06:51 Oxygen Delivery Method Room Air Weight: 218 lb 7.649 oz Body Mass Index (BMI) 33.0 Intake & Output: Intake and Output for Last 24 Hours 01/18/23 01/19/23 01/20/23 23:59 23:59 23:59 Intake Total 780 / 780 50 / 50 Output Total 550 / 550 500 / 500 Balance 230 / 230 -450 / -450 Lab / Micro Data 01/20/23 04:08 01/20/23 04:08 Labs: Laboratory Results - last 24 hr 01/19/23 14:27: Sodium 141, Potassium 5.7 H, Chloride 107, Carbon Dioxide 27.0, Anion Gap 7, BUN 49 H, Creatinine 5.34 H, Estim Creat Clear Calc 11.73, Est GFR (MDRD) Af Amer 11 L, Est GFR (MDRD) Non-Af 9 L, BUN/Creatinine Ratio 9.2 L, Glucose 88, Calcium 8.4 L 01/19/23 17:06: Potassium 5.5 H 01/19/23 17:22: POC Glucose 68 L 01/19/23 17:40: POC Glucose 74 01/19/23 22:19: POC Glucose 155 H 01/20/23 04:08: WBC 5.4, RBC 3.02 L, Hgb 9.2 L, Hct 30.4 L, MCV 100.7 H, MCH 30.5, MCHC 30.3 L, RDW Std Deviation 52.1 H, RDW Coeff of Ben 14.3, Plt Count 156, MPV 9.3, Immature Gran % (Auto) 0.400, Neut % (Auto) 54.6, Lymph % (Auto) 30.7, Bennett % (Auto) 10.0, Eos % (Auto) 3.7, Baso % (Auto) 0.6, Absolute Neuts (auto) 3.0, Absolute Lymphs (auto) 1.66, Nucleated RBC % 0, APTT 36.9 H, Sodium 138, Potassium 6.0 H*, Chloride 105, Carbon Dioxide 26.0, Anion Gap 7, BUN 55 H, Creatinine 5.89 H, Estim Creat Clear Calc 10.63, Est GFR (MDRD) Af Amer 10 L, Est GFR (MDRD) Non-Af 8 L, BUN/Creatinine Ratio 9.3 L, Glucose 96, Calcium 8.2 L , Phosphorus 5.9 H, Magnesium 2.1, TSH 3.09 01/20/23 06:21: POC Glucose 84 Radiography Diagnostic Testing: Radiology Impression Femur X-Ray 01/19/23 08:00 IMPRESSION: No demonstrated right femur fracture. Electronically Signed: Alejandro Blanchard MD at 8:24 EST Reading Location ID and State: [id number] / [employer] , Service support , Foot X-Ray 01/19/23 08:00 IMPRESSION: Plantar calcaneal spur. No demonstrated acute fracture. Electronically Signed: Alejandro Blanchard MD at 8:37 EST Reading Location ID and State: [id number] / [employer] , Service support , Knee X-Ray 01/19/23 08:00 IMPRESSION: New fracture of the proximal fibular shaft. More distinct transverse lucency across the proximal tibial shaft compared to the prior study, concerning for a new refracture. Stable tricompartment degenerative arthrosis. Electronically Signed: Alejandro Blanchard MD at 8:34 EST Reading Location ID and State: [id number] / [employer] , Service support , Pelvis X-Ray 01/19/23 08:00 IMPRESSION: No fracture or dislocation in the pelvis. Mild degenerative changes in the hips. Electronically Signed: Deshawn Galeana MD at 8:36 EST , Tibia/Fibula X-Ray 01/19/23 08:00 IMPRESSION: New fracture of the proximal fibular shaft. Suspected transverse refracture of the proximal tibial shaft. Electronically Signed: Alejandro Blanchard MD at 8:30 EST , Lower Extremity CT 01/19/23 10:00 IMPRESSION: Complete fractures through the proximal tibial and fibular metadiaphyses. Subcutaneous soft tissue edema along the anterior aspect of the proximal calf. Electronically Signed: Alejandro Blanchard MD at 10:35 EST , Physical Exam Narrative General: Alert, oriented, no apparent distress HEENT: Atraumatic, normocephalic Eyes: Anicteric, normal conjunctiva, extraocular movements grossly intact Neck: Supple Respiratory: Clear to auscultation bilaterally, normal respiratory effort Cardiovascular: Regular rate GI: Soft, nontender, nondistended Extremities: No edema Musculoskeletal: Right lower extremity immobilized Neuro: No overt focal neurological deficits Skin: No rashes appreciated Psych: Cooperative Assessment & Plan Assessment/Plan (1) Fracture of right lower extremity: (2) History of COPD: (3) ESRD (end stage renal disease) on dialysis: PLAN: Plan 57-year-old female was brought to ED by EMS for fall on her buttocks and her leg was tucked under her. She complains of severe pain from hip to the tip of the toes, denies numbness or tingling. CT scan of right lower extremity showed complete fracture through proximal tibia and fibular metadiaphysis with soft tissue edema. #Complete fractures through R proximal tibia and fibula -Seen on CT -Schedule Tylenol, pain control, will give hydromorphone instead of morphine g ivjacob end-stage renal disease -Long splint placed in ED, unclear if patient will end up being surgical candidate, per checkout no present plans for surgical intervention -Ortho consult, will make n.p.o. at midnight in the event she is deemed surgical candidate and if not patient will be okay to eat -We will need PT/OT #End-stage renal disease on dialysis Thursday, , Thursday -Nephrology consult -Potassium very slightly elevated at 5.3, will repeat -No signs or symptoms of fluid overload -Daily BMP -Daily weights, I's and O's #Type 2 diabetes mellitus -Glucose checks and sliding scale insulin -Holding glipizide and Trulicity #History of COPD -. Albuterol #Chronic anemia -Suspect secondary to renal disease/chronic disease -Appears to be at baseline -Continue to monitor CBC #Depression -Continue Zoloft #GERD -Continue PPI #Hypertension -Continue blood pressure medications and adjust as tolerated #DVT ppx: Heparin subcu
--- NOTE | 2023-01-20 07:55 | PCM.PN.HOSP ---
Reason for Visit Reason for Visit: Diagnoses End stage renal disease (01/19/23) Unspecified fracture of right lower leg, initial encounter for closed fracture (01/19/23) Personal history of other diseases of the respiratory system (01/19/23) Dependence on renal dialysis (01/19/23) Objective Data Objective Data Vital Signs: Vital Signs Temp Pulse Resp BP Pulse Ox O2 Del Method 97.8 F 81 15 103/49 L 97 Room Air 01/20/23 06:03 01/20/23 06:51 01/20/23 06:51 01/20/23 06:51 01/20/23 06:51 01/20/23 06:51 Oxygen Delivery Method Room Air Weight: 218 lb 7.649 oz Body Mass Index (BMI) 33.0 Intake & Output: Intake and Output for Last 24 Hours 01/18/23 01/19/23 01/20/23 23:59 23:59 23:59 Intake Total 780 / 780 50 / 50 Output Total 550 / 550 500 / 500 Balance 230 / 230 -450 / -450 Lab / Micro Data 01/20/23 04:08 01/20/23 12:01 Labs: Laboratory Results - last 24 hr 01/19/23 14:27: Sodium 141, Potassium 5.7 H, Chloride 107, Carbon Dioxide 27.0, Anion Gap 7, BUN 49 H, Creatinine 5.34 H, Estim Creat Clear Calc 11.73, Est GFR (MDRD) Af Amer 11 L, Est GFR (MDRD) Non-Af 9 L, BUN/Creatinine Ratio 9.2 L, Glucose 88, Calcium 8.4 L 01/19/23 17:06: Potassium 5.5 H 01/19/23 17:22: POC Glucose 68 L 01/19/23 17:40: POC Glucose 74 01/19/23 22:19: POC Glucose 155 H 01/20/23 04:08: WBC 5.4, RBC 3.02 L, Hgb 9.2 L, Hct 30.4 L, MCV 100.7 H, MCH 30.5, MCHC 30.3 L, RDW Std Deviation 52.1 H, RDW Coeff of Ben 14.3, Plt Count 156, MPV 9.3, Immature Gran % (Auto) 0.400, Neut % (Auto) 54.6, Lymph % (Auto) 30.7, Bacon % (Auto) 10.0, Eos % (Auto) 3.7, Baso % (Auto) 0.6, Absolute Neuts (auto) 3.0, Absolute Lymphs (auto) 1.66, Nucleated RBC % 0, APTT 36.9 H, Sodium 138, Potassium 6.0 H*, Chloride 105, Carbon Dioxide 26.0, Anion Gap 7, BUN 55 H, Creatinine 5.89 H, Estim Creat Clear Calc 10.63, Est GFR (MDRD) Af Amer 10 L, Est GFR (MDRD) Non-Af 8 L, BUN/Creatinine Ratio 9.3 L, Glucose 96, Calcium 8.2 L, Phosphorus 5.9 H, Magnesium 2.1, TSH 3.09 01/20/23 06:21: POC Glucose 84 Radiography Diagnostic Testing: Radiology Impression Femur X-Ray 01/19/23 08:00 IMPRESSION: No demonstrated right femur fracture. Electronically Signed: Alejandro Blanchard MD at 8:24 EST Reading Location ID and State: [id number] / [facility] , Service support , Foot X-Ray 01/19/23 08:00 IMPRESSION: Plantar calcaneal spur. No demonstrated acute fracture. Electronically Signed: Alejandro Blanchard MD at 8:37 EST Reading Location ID and State: 911 / [facility] , Service support , Knee X-Ray 01/19/23 08:00 IMPRESSION: New fracture of the proximal fibular shaft. More distinct transverse lucency across the proximal tibial shaft compared to the prior study, concerning for a new refracture. Stable tricompartment degenerative arthrosis. Electronically Signed: Alejandro Blanchard MD at 8:34 EST Reading Location ID and State: [id number] / [facility] , Service support , Pelvis X-Ray 01/19/23 08:00 IMPRESSION: No fracture or dislocation in the pelvis. Mild degenerative changes in the hips. Electronically Signed: Deshawn Galeana MD at 8:36 EST , Tibia/Fibula X-Ray 01/19/23 08:00 IMPRESSION: New fracture of the proximal fibular shaft. Suspected transverse refracture of the proximal tibial shaft. Electronically Signed: Alejandro Blanchard MD at 8:30 EST , Lower Extremity CT 01/19/23 10:00 IMPRESSION: Complete fractures through the proximal tibial and fibular metadiaphyses. Subcutaneous soft tissue edema along the anterior aspect of the proximal calf. Electronically Signed: Alejandro Blanchard MD at 10:35 EST , Physical Exam Narrative Seen and examined. Patient states her legs gave out on walking on plain ground/floor. Not on the stairs. Did not feel dizziness headache, diplopia or syncope. Physical exam: General: Alert, Oriented x3, Cooperative HEENT: Atraumatic, PERRLA, EOMI, Normocephalic Oral: No Gingival or Mucosal Lesions/ Ulcerations Neck: Supple, No JVD, Negative Carotid Bruits Lungs: Air entry diminished in bilateral lung bases. No crepitation/rhonchi Cardiovascular: Regular rate, Regular Rhythm, Normal S1, Normal S2, No murmurs Abdomen: Bowel Sounds Present, Soft, Non Tender, Non-Distended : No renal angle tenderness. No suprapubic tenderness. Extremities: No edema, Capillary Refill Less than 3 Seconds Skin: No rashes, No breakdown Musculoskeletal: Tenderness on the right tibia-fibula. Ronald wrap bandage. ROM not attempted. Neurological: Cranial nerves II-XII grossly intact, DTR 2+/4. No acute focal neurological deficit. Psych/Mental Status: Flat affect. Assessment & Plan Assessment/Plan (1) Fracture of right lower extremity: QUALIFIERS: Encounter type: initial encounter Fracture type: closed Qualified Code(s): S82.91XA - Unspecified fracture of right lower leg, initial encounter for closed fracture (2) History of COPD: (3) ESRD (end stage renal disease) on dialysis: PLAN: Plan 57-year-old female was brought to ED by EMS for fall on her buttocks and her leg was tucked under her. She complains of severe pain from hip to the tip of the toes, denies numbness or tingling. CT scan of right lower extremity showed complete fracture through proximal tibia and fibular metadiaphysis with soft tissue edema. #Complete fractures through R proximal tibia and fibula: X-ray and CT reviewed.Pain control. On hydromorphone because of end-stage renal disease. Right lower leg splinted in ED. pending surgery consulted for surgical opinion. PT and OT on board. #End-stage renal disease on dialysis Thursday, , Thursday: Forest Officer consulted. -Potassium very slightly elevated at 5.3, repeat potassium 5.4. Patient undergoing hemodialysis. No shortness of breath or hypoxia. #Type 2 diabetes mellitus: Glucose in BMP is 81. Serum magnesium 2.1. -Glucose checks and sliding scale insulin -Holding glipizide and Trulicity Chronic COPD Albuterol as needed not in exacerbation. #Chronic anemia -Suspect secondary to renal disease/chronic disease -Appears to be at baseline -Continue to monitor CBC #Depression -Continue Zoloft #GERD -Continue PPI #Hypertension -Continue blood pressure medications and adjust as tolerated #DVT ppx: Heparin subcu Charges/Coding Visit Charges Inpatient E&M: 00487 Subs Hosp L2
[2023-01-20] MEDS: Calcitriol 0.25 MCG Capsule PO ×2 (12:13→21:58)
[2023-01-20] MEDS: Senna/Docusate Sodium 1 Tablet 2 TABLET PO ×2 (12:14→21:58)
[2023-01-20] MEDS: Aspirin E.C. 81 MG Tablet PO (12:14)
[2023-01-20] MEDS: Cholecalciferol (Vit D3) 125 MCG CAPSULE (5,000 UNITS) PO (12:14)
[2023-01-20 12:27] LABS: Anion Gap 5 (5-15); BUN 38 mg/dL (7-18); BUN/Creat Ratio 9.2 RATIO (10-20); Calcium,Total 8.5 mg/dL (8.5-10.1); Chloride 105 mmol/L (98-107); Creatinine, Serum 4.15 mg/dL (0.55-1.02); EST Glomerular Filtration Rate 12 mL/min (>60); Est Glom Filt Rate - Afr Amer 14 mL/min (>60); Estimated Creatinine Clearance 15.09 ml/min; Glucose 81 mg/dL (74-106); Potassium 5.4 mmol/L (3.5-5.1); Sodium Level 139 mmol/L (136-145)
[2023-01-20 12:39] LABS: Bedside Glucose 70 mg/dL (74-106)
--- NOTE | 2023-01-20 12:45 | CASEMGMT ---
Addendum entered by Sylvie Beatty 01/20/23 17:19: 2:40 PM: SNF list that was prepared by Elenita personal financial planner, provided to pt at this time. Original Note: RN?CM?BLUEPRINT CUTTER?CM?to room to meet with patient for initial transition planning/care coordination?assessment.?RN?CM?introduced self and role at [facility].? Pt voices understanding and consents to?assessment?at this time.? Pt resting in bed in no distress at this time.? Pt is A/O at this time and answers all questions appropriately.?? Care providers, pharmacy, and demographics verified/updated at this time. PCP: Dr Archibald Specialists:Dr Blanchard-nephkojo, Dr Brown-account strategist @ [facility]/[place], Dr Riggs-ortho OP HD: Pt goes to [facility] T/TH/S. Chair time 0700. Preferred Pharmacy: [facility] Insurance: [employer] Prescription Benefit:?Yes Living Will/HPOA:?States she has a LW and HCPOA, who is her sister, Halle LNOK: Sister/Halle GONGORA. Sister, Sabine Living Arrangements: lives in mobile home w/4 steps to enter. Nephew's GF lives w/pt. Pt states she independent w/ADL's and IADL's @ her baseline. Transportation:?Pt states drives self and states no transportation concerns at this time.? DME: States has the following DME:?shower chair, crutches, walker, rollator, W/C, CGM w/supplies ?Pt states no need for further DME at this time.? HHC/SNF: Hx of [facility] and [facility]. Pt states she wishes she would be ble to go home @ discharge, but states, I'm thinking I'm going to need to go somewhere for therapy first. Pt states she does not want to go to [facility]. Her first preference is [facility]. She was made aware they do not take pt's on HD. She was made a list of SNF's will be provided for her to review. She voices understanding. PLAN:??SNF Jovani BSN?RN?CM
--- NOTE | 2023-01-20 14:23 | CASEMGMT ---
Discharge Planning A list of?SNF providers including quality and resource use data and consistent with the patient's preferred geographic region, medical needs, and insurance network was created in [facility] Guide.? This list was provided to the RN JOANIE. Elenita Peoples, Discharge Planning Asst.
[2023-01-20] MEDS: Heparin Injection (Vial) 5,000 UNIT/ML VIAL 5000 UNIT SC ×2 (14:44→21:58)
--- NOTE | 2023-01-20 16:03 | CONS.ORTHO ---
HPI Consult Data Date of Consult: 01/20/23 HPI Narrative Reason for Consultation: Right leg pain HPI Narrative: Margareth OLIVARES, is a 57 F with a history of end-stage renal failure, diabetes and obesity with previous gastric bypass surgery who presents today with right leg pain. Patient reports that she has had right leg pain since July 2022. She was under the care of Dr. Riggs at [facility] who managed her locally however, he is not privileged at this facility. She reports that he had her do protective weightbearing he kept me off it is much as possible. She reports using a walker, crutches and even a wheelchair at times until the end of November. She reports she was told that at that point she no longer needed follow-up as healing was appropriate. 2 weeks after this she presented the emergency department initially and last week and was noted to have evidence of stress fracture in the proximal tibia. She was discharged to follow-up with her orthopedist who presented again yesterday with pain and inability bear weight. Patient notes she was walking out of her house when her leg gave out on her and she fell. Patient denies any bleeding from the leg. There were no reports of open fracture or skin tears from the emergency room physician when they contacted me. There is a significant splint in place. Patient reports pain in the right leg at this time. No associated numbness and tingling. Pain is 5 out of 10 controlled with immobilization and pain medications. Denies associated numbness and tingling. Patient denies any history of cancer. CT scan was obtained no significant bony lesions are appreciated. [facility] Medical History Anxiety and depression Asthma Benign essential hypertension Bipolar disorder Chronic anemia COPD with asthma Diabetes Diabetes mellitus, type 2 Dialysis patient DVT (deep venous thrombosis) Fibromyalgia Former smoker Former tobacco use GERD (gastroesophageal reflux disease) History of diabetes mellitus, type II HLD (hyperlipidemia) HTN (hypertension) Kidney disease Kidney disease, chronic, stage IV (GFR 15-29 ml/min) Neuropathy Obesity Sleep apnea Home Medications cholecalciferol (vitamin D3) 25 mcg (1,000 unit) capsule (Vitamin D3) 5,000 unit PO DAILY 10/03/13 [History Last Taken 01/18/23] omeprazole 20 mg capsule,delayed release 20 mg PO DAILY 08/23/14 [History Last Taken 01/18/23] glipizide 5 mg tablet 10 mg PO DAILY 04/28/15 [History Last Taken 01/18/23] labetalol 200 mg tablet 100 mg PO BID 04/28/15 [History Last Taken 01/18/23] aspirin 81 mg tablet,delayed release (Aspir-Low) 81 mg PO DAILY 05/27/16 [History Last Taken 01/18/23] melatonin 5 mg capsule 5 mg PO QHS 05/27/16 [History Last Taken 01/18/23] ferrous sulfate 325 mg (65 mg iron) tablet (Iron (ferrous sulfate)) 325 mg PO DAILY 11/25/16 [History Last Taken 01/18/23] amitriptyline 100 mg tablet 100 mg PO QHS sleep 09/10/22 [History Last Taken 01/18/23] atorvastatin 40 mg tablet 40 mg PO QHS hyperlipidemia 09/10/22 [History Last Taken 01/18/23] calcitriol 0.25 mcg capsule 0.25 mcg PO BID 09/10/22 [History Last Taken 01/18/23] dulaglutide 1.5 mg/0.5 mL subcutaneous pen injector (Trulicity) 1.5 mg subcut QWEEK diabetes 09/10/22 [History Last Taken 01/18/23] hydroxyzine HCl 50 mg tablet 50 mg PO Q6H PRN itching 09/10/22 [History Last Taken Unknown] sertraline 50 mg tablet 50 mg PO QHS bipolar 09/10/22 [History Last Taken 01/18/23] sodium bicarbonate 650 mg tablet 650 mg PO QHS 09/10/22 [History Last Taken 01/18/23] acetaminophen 325 mg tablet 650 mg (2 x 325 mg) PO Q4H PRN PRN Fever, pain 1-10/10 #0 tabs 09/11/22 [Rx Last Taken 01/19/23] oxycodone 5 mg tablet 5 mg PO Q8H PRN pain 3 days #10 tabs 10/15/22 [Rx Last Taken Unknown] docusate sodium 100 mg capsule (DOK) 100 mg PO DAILY #20 CAPSULES 01/15/23 [Rx Last Taken Unknown] Allergy/AdvReac Type Severity Reaction Status Date / Time renetta carin Allergy Unknown UNKNOWN Verified 01/19/23 07:12 mold Allergy Unknown unknown Verified 01/19/23 07:12 lisinopril Allergy unknown Verified 01/19/23 07:12 Penicillins Allergy Anaphylaxis Verified 01/19/23 07:12 tetracycline [Tetracycline] Allergy Anaphylaxis Verified 01/19/23 07:12 codeine AdvReac Abd Verified 01/19/23 07:12 cramps/diarrhea diphenhydramine HCl AdvReac Upset Verified 01/19/23 07:12 [From Benadryl] Stomach hydrocodone bitartrate AdvReac Abd Verified 01/19/23 07:12 [From Vicodin] cramps/diarrhea NSAIDS (Non-Steroidal AdvReac Unknown Verified 01/19/23 07:12 Anti-Inflamma Family History Mother Heart disease Hypertension Diabetes Kidney disease Father Diabetes Surgical History H/O gastric bypass H/O vascular surgery History of appendectomy History of cholecystectomy S/P appendectomy S/P cholecystectomy Social History household members: none Smoking Status: Former smoker how long ago did patient quit smoking: Quit age 24. alcohol intake: never substance use type: does not use ROS Constitutional Constitutional: Reports systems reviewed and no addt'l complaints, except as documented Eyes Eyes: Reports systems reviewed and no addt'l complaints, except as documented ENT HEENT: Reports systems reviewed and no addt'l complaints, except as documented Cardiovascular Cardiovascular: Reports systems reviewed and no addt'l complaints, except as documented Respiratory/Chest Respiratory/Chest: Reports systems reviewed and no addt'l complaints, except as documented Gastrointestinal Gastrointestinal: Reports systems reviewed and no addt'l complaints, except as documented Genitourinary Genitourinary: Reports systems reviewed and no addt'l complaints, except as documented Musculoskeletal Musculoskeletal: Reports systems reviewed and no addt'l complaints, except as documented Integumentary Integumentary: Reports systems reviewed and no addt'l complaints, except as documented Neurologic Neurologic: Reports systems reviewed and no addt'l complaints, except as documented Psychiatric Psychiatric: Reports systems reviewed and no addt'l complaints, except as documented Endocrine Endocrinology: Reports systems reviewed and no addt'l complaints, except as documented Hematologic/Lymphatic Hematologic/Lymphatic: Reports systems reviewed and no addt'l complaints, except as documented Allergic/Immunologic Allergic/Immunologic: Reports systems reviewed and no addt'l complaints, except as documented Vital Signs Vital Signs Vital Signs: 01/19/23 16:14 01/19/23 16:10 01/19/23 17:40 Temperature 98.3 F Temperature Source Oral Pulse Rate 87 88 Respiratory Rate 17 15 Respiratory Effort Normal Non-Labored Respiratory Depth Normal Respiratory Pattern Normal Blood Pressure 167/71 H 167/71 H Blood Pressure Mean 103 103 Blood Pressure Source Monitor Blood Pressure Position Semi-Fowlers Blood Pressure Location Right Arm Pulse Ox 98 94 Oxygen Delivery Method Room Air Room Air 01/19/23 22:05 01/19/23 22:00 01/20/23 04:26 Temperature 98 F 97.6 F L Temperature Source Oral Temporal Pulse Rate 85 84 Respiratory Rate 16 14 Respiratory Effort Normal Non-Labored Respiratory Depth Normal Respiratory Pattern Normal Blood Pressure 143/65 H 126/60 H Blood Pressure Mean 91 82 Blood Pressure Source Monitor Monitor Blood Pressure Position Semi-Fowlers Semi-Fowlers Blood Pressure Location Right Arm Right Arm Pulse Ox 94 93 Oxygen Delivery Method Room Air Room Air Room Air 01/20/23 06:03 01/20/23 04:00 01/20/23 06:51 Temperature 97.8 F Temperature Source Temporal Pulse Rate 84 81 Respiratory Rate 16 15 Respiratory Effort Normal Non-Labored Normal Non-Labored Respiratory Depth Normal Respiratory Pattern Normal Blood Pressure 109/52 L 103/49 L Blood Pressure Mean 71 67 Blood Pressure Source Monitor Monitor Blood Pressure Position Semi-Fowlers Semi-Fowlers Blood Pressure Location Right Arm Right Arm Pulse Ox 96 97 Oxygen Delivery Method Room Air Room Air Room Air 01/20/23 10:26 01/20/23 10:26 01/20/23 14:00 Temperature 98.1 F Temperature Source Oral Pulse Rate 83 Respiratory Rate 16 Respiratory Effort Respiratory Depth Respiratory Pattern Blood Pressure 126/65 H Blood Pressure Mean 85 Blood Pressure Source Monitor Blood Pressure Position Blood Pressure Location Pulse Ox 96 Oxygen Delivery Method Room Air Room Air Room Air 01/20/23 07:21 01/20/23 07:51 01/20/23 08:21 Temperature Temperature Source Pulse Rate 79 84 74 Respiratory Rate 15 14 16 Respiratory Effort Respiratory Depth Respiratory Pattern Blood Pressure 110/47 L 95/52 L 100/56 L Blood Pressure Mean 68 66 70 Blood Pressure Source Monitor Monitor Monitor Blood Pressure Position Semi-Fowlers Semi-Fowlers Semi-Fowlers Blood Pressure Location Right Arm Right Arm Right Arm Pulse Ox Oxygen Delivery Method Room Air Room Air Room Air 01/20/23 08:46 01/20/23 09:21 01/20/23 10:11 Temperature Temperature Source Pulse Rate 73 77 74 Respiratory Rate 14 14 14 Respiratory Effort Normal Non-Labored Respiratory Depth Respiratory Pattern Blood Pressure 94/46 L 109/52 L 117/84 H Blood Pressure Mean 62 71 95 Blood Pressure Source Monitor Monitor Monitor Blood Pressure Position Semi-Fowlers Semi-Fowlers Semi-Fowlers Blood Pressure Location Right Arm Right Arm Right Arm Pulse Ox Oxygen Delivery Method Room Air Room Air Room Air Weight Weight: 216 lb 14.958 oz Body Mass Index (BMI) 32.8 Physical Exam Const alert, oriented x3 and well nourished General Appearance: cooperative HEENT normocephalic and head/scalp atraumatic Eyes PERRL Neck no JVD Resp normal respiratory effort Cardio Cardio Narrative: Regular pulse rate GI non-distended GI Narrative: Obese Extremity Extremity Narrative: Right lower extremity: Patient has a long-leg splint in place. No saturation on the dressing. Sensations intact light touch saphenous, sural, superficial peroneal, deep peroneal tibial and perturbations. I was able to put pressure on splinted and the compartments also I was able to move the digits passively without severe increase in pain. All digits are warm and pink with brisk cap refill. Patient wiggles all digits in the splint. Skin no rashes or lesions noted Neuro CN's II-XII intact bilaterally Medical Records Data Attestation: I reviewed the patient's medical records Lab / Micro Data Attestation: I reviewed the patient's lab results. 01/20/23 04:08 01/20/23 12:01 Labs: Laboratory Results - last 24 hr 01/19/23 17:06: Potassium 5.5 H 01/19/23 17:22: POC Glucose 68 L 01/19/23 17:40: POC Glucose 74 01/19/23 22:19: POC Glucose 155 H 01/20/23 04:08: WBC 5.4, RBC 3.02 L, Hgb 9.2 L, Hct 30.4 L, MCV 100.7 H, MCH 30.5, MCHC 30.3 L, RDW Std Deviation 52.1 H, RDW Coeff of Ben 14.3, Plt Count 156, MPV 9.3, Immature Gran % (Auto) 0.400, Neut % (Auto) 54.6, Lymph % (Auto) 30.7, [place] % (Auto) 10.0, Eos % (Auto) 3.7, Baso % (Auto) 0.6, Absolute Neuts (auto) 3.0, Absolute Lymphs (auto) 1.66, Nucleated RBC % 0, APTT 36.9 H, Sodium 138, Potassium 6.0 H*, Chloride 105, Carbon Dioxide 26.0, Anion Gap 7, BUN 55 H, Creatinine 5.89 H, Estim Creat Clear Calc 10.63, Est GFR (MDRD) Af Amer 10 L, Est GFR (MDRD) Non-Af 8 L, BUN/Creatinine Ratio 9.3 L, Glucose 96, Calcium 8.2 L, Phosphorus 5.9 H, Magnesium 2.1, TSH 3.09 01/20/23 06:21: POC Glucose 84 01/20/23 12:01: Sodium 139, Potassium 5.4 H, Chloride 105, Carbon Dioxide 29.0, Anion Gap 5, BUN 38 H, Creatinine 4.15 H, Estim Creat Clear Calc 15.09, Est GFR (MDRD) Af Amer 14 L, Est GFR (MDRD) Non-Af 12 L, BUN/Creatinine Ratio 9.2 L, Glucose 81, Calcium 8.5, POC Glucose 70 L Imagaing X-rays and CT scan of the extremity were reviewed. Patient has a pathologic stress fracture of the proximal tibia. CT scan does not reveal evidence of significant bone lesion. Assessment & Plan Assessment/Plan (1) Pathological fracture, right tibia, initial encounter for fracture: PLAN: Natural history of the disease process and treatment options were discussed the patient. Patient was given opportunity ask questions and all questions were answered to the best my ability. We discussed the natural history of pathologic fracture of the right tibia likely in relation to metabolic deficiencies in relation to her renal disease. CT scan and x-rays were reviewed do not appreciate a bony lesion at this time. I have discussed with the medicine team the need for a metabolic work-up to address any deficiencies. I have also ordered parathyroid hormone for them to review. Patient's calcium was initially low and has been corrected so far on this visit. We did discuss operative and nonoperative interventions. Patient did wish to proceed with operative intervention. At this time I recommended a reamed intramedullary nail as an appropriate form of fixation and stabilization of the fracture. Risk and benefits of the procedure were discussed the patient including but not limited to blood loss, DVTs, PEs, nervous damage, fashion, the risk of anesthesia including loss of life. Also discussed at length the risk for this patient of a nonunion in relation to her metabolic disease. She has a history of renal failure, diabetes and also has a history of gastric bypass surgery all of which can add to metabolic deficiencies and malnutrition leading to nonunion to the fracture. Patient demonstrated understanding and wished to proceed. At this time antibiotics were ordered on-call to the operating room clindamycin is ordered secondary to anaphylaxis noted for penicillin. Patient will be made n.p.o. after midnight we will plan for surgical fixation tomorrow. Additionally, patient does have osteoarthritis of the right knee noted on the x-rays I did know she would likely have residual knee pain after tibial nailing. (2) Fracture of fibula, right, closed: PLAN: Please see above plan (3) ESRD (end stage renal disease) on dialysis: PLAN: Recommend continued metabolic work-up (4) Inability to walk: PLAN: See above plan for tibia fracture (5) History of COPD: PLAN: Per primary service, may have effect on postoperative care (6) History of tobacco use: PLAN: Per primary service, may have effect on postoperative care (7) History of bipolar disorder: PLAN: Per primary service, may have effect on postoperative care (8) History of asthma: PLAN: Per primary service, may have effect on postoperative care (9) Benign essential hypertension: PLAN: Per primary service, may have effect on postoperative care (10) Diabetes mellitus, type 2: PLAN: Per primary service, may have effect on postoperative care (11) Anxiety and depression: PLAN: Per primary service, may have effect on postoperative care (12) Osteoarthritis of right knee: PLAN: X-rays of the knee and tibia and femur were taken. Patient does have evidence of joint space narrowing subchondral sclerosis and marginal osteophytes consistent with osteoarthritis in these nonweightbearing films.
[2023-01-20 17:30] LABS: Bedside Glucose 144 mg/dL (74-106)
--- NOTE | 2023-01-20 18:25 | NURSING ---
Reviewed charting with Clarke Griffin RN
[2023-01-20] MEDS: Sodium Bicarbonate 650 MG Tablet PO (21:57)
[2023-01-20] MEDS: MELATONIN 10 MG TABLET 5 MG PO (21:57)
[2023-01-20] MEDS: Amitriptyline 100 MG Tablet PO (21:57)
[2023-01-20] MEDS: Sertraline 50 MG Tablet PO (21:57)
[2023-01-20] MEDS: Atorvastatin Calcium 40 MG Tablet PO (21:58)
[2023-01-20 22:42] LABS: Bedside Glucose 131 mg/dL (74-106)
[2023-01-20 23:34] LABS: PTHIN 433.9 pg/mL (18.4-80.1)
[2023-01-21] VITALS (17 sets, daily range): BP systolic 111–249; BP diastolic 50–73; PULSE 85–99; RESP 13–18; TEMP 36.6–37.3; O2SAT 87–98; BMI 32.8; BMI 32.9; BMI 32.7
[2023-01-21] MEDS: oxyCODONE 5 MG Tablet PO ×2 (01:56→08:08)
[2023-01-21] MEDS: Acetaminophen 500 MG Tablet 1000 MG PO ×2 (06:23→21:00)
[2023-01-21 06:29] LABS: Absolute Lymphocyte Count 1.57 X10^3/uL (0.83-4.51); Basophil# 0.03 X10^3/uL; Basophil% 0.6 % (0-1); Eosinophils% 1.9 % (0-5); Hematocrit 30.7 % (37-47); Hemoglobin 8.9 g/dL (12.0-15.0); Lymphocyte # 1.57 X10^3/ul (0.83-4.51); Lymphocyte % 29.6 % (19-41); Mean Corpuscular Hgb 29.7 pg (27.0-32.0); Mean Corpuscular Volume 102.3 fL (81-99); Mean Platelet Vol. 9.3 fl (6.2-12.0); Monocyte% 11.3 % (0-10); NRBC Flagged by Analyzer 0 % (0-5); Neutrophil # 3.01 X10^3/uL (2.7-7.7); Neutrophil % 56.6 % (47-70); Platelet Count 146 K/mm3 (150-450); RBC Distribution Width CV 14.2 % (11.6-14.6); RBC Distribution Width SD 53.6 fl (35.1-43.9); White Blood Count 5.3 K/mm3 (4.4-11.0)
[2023-01-21 06:54] LABS: Bedside Glucose 94 mg/dL (74-106)
[2023-01-21 07:01] LABS: Anion Gap 5 (5-15); BUN 50 mg/dL (7-18); BUN/Creat Ratio 9.5 RATIO (10-20); Calcium,Total 8.6 mg/dL (8.5-10.1); Chloride 104 mmol/L (98-107); Creatinine, Serum 5.25 mg/dL (0.55-1.02); EST Glomerular Filtration Rate 9 mL/min (>60); Est Glom Filt Rate - Afr Amer 11 mL/min (>60); Estimated Creatinine Clearance 11.93 ml/min; Glucose 104 mg/dL (74-106); Potassium 5.6 mmol/L (3.5-5.1); Sodium Level 135 mmol/L (136-145)
--- NOTE | 2023-01-21 07:47 | PCM.CONS.R ---
Assessment & Plan Assessment/Plan (1) ESRD (end stage renal disease) on dialysis: PLAN: HD arranged for today. Tib/Fib fracture. apparently non traumatic. she tells me that she has similar fracture several years ago. bone scan about 10 years ago showed osteoporosis. Reviewed records from dialysis unit. she has recently started dialysis with us. Phos levels have been at goal. PTH level 680 which is within goal for ESRD status. Hyperkalemia. should improve with HD HPI Consult Data Date of Consult: 01/21/23 HPI Narrative Reason for Consultation: ESRD HPI Narrative: Margareth OLIVARES, is a 57 F who presents with a tibia fibula fracture, non traumatic. renal consulted for ESRD. on HD. last HD yesterday. currently denies any complaints. FORMERLY [facility] Medical History Anxiety and depression Asthma Benign essential hypertension Bipolar disorder Chronic anemia COPD with asthma Diabetes Diabetes mellitus, type 2 Dialysis patient DVT (deep venous thrombosis) Fibromyalgia Former smoker Former tobacco use GERD (gastroesophageal reflux disease) History of diabetes mellitus, type II HLD (hyperlipidemia) HTN (hypertension) Kidney disease Kidney disease, chronic, stage IV (GFR 15-29 ml/min) Neuropathy Obesity Sleep apnea Home Medications cholecalciferol (vitamin D3) 25 mcg (1,000 unit) capsule (Vitamin D3) 5,000 unit PO DAILY 10/03/13 [History Last Taken 01/18/23] omeprazole 20 mg capsule,delayed release 20 mg PO DAILY 08/23/14 [History Last Taken 01/18/23] glipizide 5 mg tablet 10 mg PO DAILY 04/28/15 [History Last Taken 01/18/23] labetalol 200 mg tablet 100 mg PO BID 04/28/15 [History Last Taken 01/18/23] aspirin 81 mg tablet,delayed release (Aspir-Low) 81 mg PO DAILY 05/27/16 [History Last Taken 01/18/23] melatonin 5 mg capsule 5 mg PO QHS 05/27/16 [History Last Taken 01/18/23] ferrous sulfate 325 mg (65 mg iron) tablet (Iron (ferrous sulfate)) 325 mg PO DAILY 11/25/16 [History Last Taken 01/18/23] amitriptyline 100 mg tablet 100 mg PO QHS sleep 09/10/22 [History Last Taken 01/18/23] atorvastatin 40 mg tablet 40 mg PO QHS hyperlipidemia 09/10/22 [History Last Taken 01/18/23] calcitriol 0.25 mcg capsule 0.25 mcg PO BID 09/10/22 [History Last Taken 01/18/23] dulaglutide 1.5 mg/0.5 mL subcutaneous pen injector (Trulicity) 1.5 mg subcut QWEEK diabetes 09/10/22 [History Last Taken 01/18/23] hydroxyzine HCl 50 mg tablet 50 mg PO Q6H PRN itching 09/10/22 [History Last Taken Unknown] sertraline 50 mg tablet 50 mg PO QHS bipolar 09/10/22 [History Last Taken 01/18/23] sodium bicarbonate 650 mg tablet 650 mg PO QHS 09/10/22 [History Last Taken 01/18/23] acetaminophen 325 mg tablet 650 mg (2 x 325 mg) PO Q4H PRN PRN Fever, pain 1-10/10 #0 tabs 09/11/22 [Rx Last Taken 01/19/23] oxycodone 5 mg tablet 5 mg PO Q8H PRN pain 3 days #10 tabs 10/15/22 [Rx Last Taken Unknown] docusate sodium 100 mg capsule (DOK) 100 mg PO DAILY #20 CAPSULES 01/15/23 [Rx Last Taken Unknown] Allergy/AdvReac Type Severity Reaction Status Date / Time lety carin Allergy Unknown UNKNOWN Verified 01/19/23 07:12 mold Allergy Unknown unknown Verified 01/19/23 07:12 lisinopril Allergy unknown Verified 01/19/23 07:12 Penicillins Allergy Anaphylaxis Verified 01/19/23 07:12 tetracycline [Tetracycline] Allergy Anaphylaxis Verified 01/19/23 07:12 codeine AdvReac Abd Verified 01/19/23 07:12 cramps/diarrhea diphenhydramine HCl AdvReac Upset Verified 01/19/23 07:12 [From Benadryl] Stomach hydrocodone bitartrate AdvReac Abd Verified 01/19/23 07:12 [From Vicodin] cramps/diarrhea NSAIDS (Non-Steroidal AdvReac Unknown Verified 01/19/23 07:12 Anti-Inflamma Family History Mother Heart disease Hypertension Diabetes Kidney disease Father Diabetes Surgical History H/O gastric bypass H/O vascular surgery History of appendectomy History of cholecystectomy S/P appendectomy S/P cholecystectomy Social History household members: none Smoking Status: Former smoker how long ago did patient quit smoking: Quit age 24. alcohol intake: never substance use type: does not use ROS ROS Narrative negative except above Physical Exam Narrative Alert awake oriented x 3 no obvious distress no pallor no icterus no JVD s1s2 no murmurs lungs clear abdomen soft no organomegaly no edema no cyanosis Lab / Micro Data 01/21/23 06:00 01/21/23 06:00 Labs: Laboratory Results - last 24 hr 01/20/23 04:08: PTH Intact 433.9 H 01/20/23 12:01: Sodium 139, Potassium 5.4 H, Chloride 105, Carbon Dioxide 29.0, Anion Gap 5, BUN 38 H, Creatinine 4.15 H, Estim Creat Clear Calc 15.09, Est GFR (MDRD) Af Amer 14 L, Est GFR (MDRD) Non-Af 12 L, BUN/Creatinine Ratio 9.2 L, Glucose 81, Calcium 8.5, POC Glucose 70 L 01/20/23 17:01: POC Glucose 144 H 01/20/23 21:42: POC Glucose 131 H 01/21/23 06:00: WBC 5.3, RBC 3.00 L, Hgb 8.9 L, Hct 30.7 L, MCV 102.3 H, MCH 29.7, MCHC 29.0 L, RDW Std Deviation 53.6 H, RDW Coeff of Ben 14.2, Plt Count 146 L, MPV 9.3, Immature Gran % (Auto) 0.000, Neut % (Auto) 56.6, Lymph % (Auto) 29.6, Gibson % (Auto) 11.3 H, Eos % (Auto) 1.9, Baso % (Auto) 0.6, Absolute Neuts (auto) 3.0, Absolute Lymphs (auto) 1.57, Nucleated RBC % 0, Sodium 135 L, Potassium 5.6 H, Chloride 104, Carbon Dioxide 26.0, Anion Gap 5, BUN 50 H, Creatinine 5.25 H, Estim Creat Clear Calc 11.93, Est GFR (MDRD) Af Amer 11 L, Est GFR (MDRD) Non-Af 9 L, BUN/Creatinine Ratio 9.5 L, Glucose 104, Calcium 8.6 01/21/23 06:26: POC Glucose 94
[2023-01-21 08:07] LABS: Hemoglobin A1c 5.8 % (3.8-5.6)
[2023-01-21] MEDS: Senna/Docusate Sodium 1 Tablet 2 TABLET PO ×2 (08:09→21:01)
[2023-01-21] MEDS: Pantoprazole Sodium 20 MG Tablet PO (08:10)
--- NOTE | 2023-01-21 08:29 | PCM.PN.HOSP ---
Reason for Visit Reason for Visit: Diagnoses Type 2 diabetes mellitus without complications (01/19/23) Depression, unspecified (01/19/23) Anxiety disorder, unspecified (01/19/23) Essential (primary) hypertension (01/19/23) Unilateral primary osteoarthritis, right knee (01/19/23) Pathological fracture, right tibia, initial encounter for fracture (01/19/23) End stage renal disease (01/19/23) Difficulty in walking, not elsewhere classified (01/19/23) Unspecified fracture of shaft of right fibula, initial encounter for closed fracture (01/19/23) Unspecified fracture of right lower leg, initial encounter for closed fracture (01/19/23) Personal history of other mental and behavioral disorders (01/19/23) Personal history of other diseases of the respiratory system (01/19/23) Personal history of nicotine dependence (01/19/23) Dependence on renal dialysis (01/19/23) Objective Data Objective Data Vital Signs: Vital Signs Temp Pulse Resp BP Pulse Ox O2 Del Method 98.4 F 86 16 123/52 H 95 Room Air 01/21/23 08:15 01/21/23 08:15 01/21/23 08:15 01/21/23 08:15 01/21/23 08:15 01/21/23 08:23 Oxygen Delivery Method Room Air Weight: 216 lb 11.43 oz Body Mass Index (BMI) 32.9 Intake & Output: Intake and Output for Last 24 Hours 01/19/23 01/20/23 01/21/23 23:59 23:59 23:59 Intake Total 780 / 780 550 / 550 Output Total 550 / 550 1650 / 1950 300 / 300 Balance 230 / 230 -1100 / -1400 -300 / -300 Lab / Micro Data 01/21/23 06:00 01/21/23 13:07 Labs: Laboratory Results - last 24 hr 01/20/23 04:08: PTH Intact 433.9 H 01/20/23 12:01: Sodium 139, Potassium 5.4 H, Chloride 105, Carbon Dioxide 29.0, Anion Gap 5, BUN 38 H, Creatinine 4.15 H, Estim Creat Clear Calc 15.09, Est GFR (MDRD) Af Amer 14 L, Est GFR (MDRD) Non-Af 12 L, BUN/Creatinine Ratio 9.2 L, Glucose 81, Calcium 8.5, POC Glucose 70 L 01/20/23 17:01: POC Glucose 144 H 01/20/23 21:42: POC Glucose 131 H 01/21/23 06:00: WBC 5.3, RBC 3.00 L, Hgb 8.9 L, Hct 30.7 L, MCV 102.3 H, MCH 29.7, MCHC 29.0 L, RDW Std Deviation 53.6 H, RDW Coeff of Ben 14.2, Plt Count 146 L, MPV 9.3, Immature Gran % (Auto) 0.000, Neut % (Auto) 56.6, Lymph % (Auto) 29.6, Brooks % (Auto) 11.3 H, Eos % (Auto) 1.9, Baso % (Auto) 0.6, Absolute Neuts (auto) 3.0, Absolute Lymphs (auto) 1.57, Nucleated RBC % 0, Sodium 135 L, Potassium 5.6 H, Chloride 104, Carbon Dioxide 26.0, Anion Gap 5, BUN 50 H, Creatinine 5.25 H, Estim Creat Clear Calc 11.93, Est GFR (MDRD) Af Amer 11 L, Est GFR (MDRD) Non-Af 9 L, BUN/Creatinine Ratio 9.5 L, Glucose 104, Hemoglobin A1c 5.8 H, Calcium 8.6 01/21/23 06:26: POC Glucose 94 Physical Exam Narrative Seen and examined. Patient's pain is controlled. Discussed with her regarding metabolic bone disease. Patient states her legs gave out on walking on plain ground/floor, trivial fall resulting into fracture. Not on the stairs. Did not feel dizziness headache, diplopia or syncope. Physical exam: General: Alert, Oriented x3, Cooperative HEENT: Atraumatic, PERRLA, EOMI, Normocephalic Oral: No Gingival or Mucosal Lesions/ Ulcerations Neck: Supple, No JVD, Negative Carotid Bruits Lungs: Air entry diminished in bilateral lung bases. No crepitation/rhonchi Cardiovascular: Regular rate, Regular Rhythm, Normal S1, Normal S2, No murmurs Abdomen: Bowel Sounds Present, Soft, Non Tender, Non-Distended : No renal angle tenderness. No suprapubic tenderness. Extremities: No edema, Capillary Refill Less than 3 Seconds Skin: No rashes, No breakdown Musculoskeletal: Mild tenderness on the right tibia-fibula. Ronald wrap bandage. ROM not attempted. Neurological: Cranial nerves II-XII grossly intact, DTR 2+/4. No acute focal neurological deficit. Psych/Mental Status: Flat affect. Assessment & Plan Assessment/Plan (1) Fracture of right lower extremity: QUALIFIERS: Encounter type: initial encounter Fracture type: closed Qualified Code(s): S82.91XA - Unspecified fracture of right lower leg, initial encounter for closed fracture (2) History of COPD: (3) ESRD (end stage renal disease) on dialysis: PLAN: Plan 57-year-old female was brought to ED by EMS for fall on her buttocks and her leg was tucked under her. She complains of severe pain from hip to the tip of the toes, denies numbness or tingling. CT scan of right lower extremity showed complete fracture through proximal tibia and fibular metadiaphysis with soft tissue edema. #Complete fractures through R proximal tibia and fibula: X-ray and CT reviewed.Pain control. On hydromorphone because of end-stage renal disease. Right lower leg splinted in ED. pending surgery consulted for surgical opinion. PT and OT on board. 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 Patient serum calcium is 8.6, phosphorus 5.9, magnesium 2.1. Vitamin D 25 and phosphorus are 83.2 and 5.4 respectively. PTH high 433. Vitamin B12 543. Discussed with the rocket motor tester. She started dialysis about 1 year ago her phosphate and PTH is not very high to warrant or indication of treatment. Bicarb is 26 and patient on sodium bicarbonate. As per rocket motor tester, phosphorus above 600 might need treatment. #End-stage renal disease on dialysis Thursday, , Thursday: Nuisance Animal Damage Control Agent consulted. -Potassium very slightly elevated at 5.3, repeat potassium 5.4. Patient undergoing hemodialysis. No shortness of breath or hypoxia. #Type 2 diabetes mellitus: Glucose in BMP is 81. Serum magnesium 2.1. -Glucose checks and sliding scale insulin -Holding glipizide and Trulicity Chronic COPD Albuterol as needed not in exacerbation. #Chronic anemia -Suspect secondary to renal disease/chronic disease -Appears to be at baseline -01/21: Reticulocyte panel and iron work-up ordered. Patient on ferrous sulfate 325 mg daily. Serum iron low, ferritin high 307. Iron saturation 8.2% low. Reticulocyte count, immature reticulocyte fraction normal. Overall, iron profile is suggestive of anemia of chronic disease/renal disease. We will change her ferrous sulfate to every other day. #Depression -Continue Zoloft #GERD -Continue PPI #Hypertension -Continue blood pressure medications and adjust as tolerated #DVT ppx: Heparin subcu Charges/Coding Visit Charges Inpatient E&M: 90443 Subs Hosp L2
[2023-01-21 08:42] LABS: Vitamin B12 543 pg/mL (211-911); Vitamin D,25 Hydroxy 83.2 ng/mL
[2023-01-21 09:07] LABS: Ferritin 307 ng/mL (8-252); Iron 21 ug/dL (50-170); Iron Binding Capacity,Total 256 ug/dL (250-450); PERCENT IRON SATURATION 8.2 % (15.0-55.0); Phosphorus 5.4 mg/dL (2.5-4.9)
[2023-01-21 09:11] LABS: Platelet Count 147 K/mm3 (150-450); RET-HE 32.9 pg (30-35); Reticulocyte Count 1.09 % (0.5-1.5)
[2023-01-21] MEDS: PureFlow B 2K Dialysis Soln 1 BAG 6 BAG PF (11:21)
[2023-01-21] MEDS: 0.9% Normal Saline 1,000 ML IV.SOLN. 1000 ML OPERA.SITE (11:21)
[2023-01-21] MEDS: Labetalol 100 MG Tablet 50 MG PO ×2 (13:06→21:02)
[2023-01-21 13:15] LABS: Bedside Glucose 79 mg/dL (74-106)
[2023-01-21 13:18] LABS: Potassium 4.5 mmol/L (3.5-5.1)
[2023-01-21] MEDS: 0.9% Normal Saline (500mL Bag) 500 ML 15 ML IV (13:55)
--- NOTE | 2023-01-21 14:00 | RAD_ITS ---
STUDY: X-RAY - RIGHT TIBIA AND FIBULA REASON FOR EXAM: Female, 57 years old. Intraoperative digital documentation views. TECHNIQUE: 35 intraoperative digital documentation view(s) of the tibia and fibula were obtained. COMPARISON: None. FINDINGS: 35 intraoperative digital documentation views show intramedullary gianna placement and cancellus screw placement . RAD/Tibia & Fibula 2 Views IMPRESSION: Intraoperative digital documentation views as described. Electronically Signed: Casa Galvez MD at 13:08 EST ,
[2023-01-21] MEDS: Clindamycin 600 MG/50 ML BAG 100 MG IV ×2 (14:09→20:50)
--- NOTE | 2023-01-21 14:53 | CHAPLAIN ---
Type of Pastoral Visit ___ Initial Visit ___ Follow-up Visit ___ On-call Visit ___ General Patient Visit ___ Spiritual Assessment ___ Family Conference ___ Bereavement ___ Rapid Response ___ Code Blue ___ Other (describe below) Pastoral Care Referral From ___ Patient ___ Family ___ Nurse ___ Physician ___ Information Technology Data Analyst ___ Physician'S Aide ___ Other (describe below) Sacrament/Intervention ___ Active listening ___ Anointing ___ Religion ___ Bereavement ___ Communion ___ Isi exploration ___ ___ Life review ___ Prayer ___ Reconciliation ___ Sacrament of Sick ___ Supportive presence ___ Wedding ___ Other (describe below) Pastoral Comments patient was unavailable yesterday; today the pt is receiving dialysis and is sleeping soundly so no visit conducted
--- NOTE | 2023-01-21 15:47 | CASEMGMT ---
Per nursing assessment patient does not have a Healthcare Power of Gold Burnisher or Healthcare Living Will. Patient declined any information. Jeannie HUMMEL
--- NOTE | 2023-01-21 16:41 | OP.PCM_ITS ---
Report of Operation Date of Procedure: 01/21/23 Pre-Operative Diagnosis: Right pathologic transverse proximal tibia extra-artic ular fracture Post-Operative Diagnosis: Right pathologic transverse proximal tibia extra- articular fracture Surgery/Procedure Performed:: Right suprapatellar intramedullary tibial nail Description of Surgical Findings:: Stable reduction. Sclerotic bone at fracture site. Surgeon: Deshawn Tucker textile dyer: Clovis Denny Type of Anesthesia: General Anesthesiologist: Pramod Griffin Special Medications: Clindamycin Estimated Blood Loss (mL): 250 mL Fluids Replaced: 250 mL crystalloid Description of Procedure: All date of procedure patient's right leg was seen and evaluated in the preoperative area once more. We verified the operative plan and patient was given opportunity ask any further questions or concerns. All questions and concerns were answered to the best my ability. Patient's brother was at bedside and also agreed to proceed and demonstrated understanding of our discussion at bedside. I again reiterated my concern for her ability to heal but all parties agreed need to stabilize the fracture. right lower extremity was marked and patient was taken back to the operating room. When she was in the operating room we transferred her to the bed in supine position and all bony prominences identified well-padded. Anesthesia team controlled C-spine airway and remained controlled throughout the remainder of the procedure. Patient was a probe anesthetized. Tourniquet was placed in the right upper thigh. Patient leg was positioned and a bump was placed underneath the right hip. After we obtain the appropriate position the right lower extremity splint was removed. Patient did have an anterior hematoma but no skin breaks, lacerations or significant abrasions. I no open fracture was noted. At this time the right lower extremity was prepped in a sterile fashion while the surgeon scrubbed. Upon Trav in the room the right lower extremity was draped in a standard o rthopedic fashion a timeout was called. I 1 agreed upon the side, the site, the procedure to be performed, patient is a identity and antibiotics given. We elected to use a suprapatellar approach. Tourniquet was placed 250 mmHg. Patient was placed in slight knee flexion and we were able to place posterior pressure on the distal tibia and valgus pressure on the tibia in order to obtain an adequate reduction. After we were able to verify we could clearly reduce the fracture incision was made proximal to the patella and a proximal medial parapatellar incision was was made approximately to the midportion of the patella. Patella was then retracted laterally and we placed the suprapatellar trocar into the joint. Live x-ray was used to verify the starting point and a guidepin was placed. We then reamed over the guidepin for the entry hole in the proximal tibia. We then attempted to pass the guidewire and the bone around the fracture was extremely sclerotic and could not past the fracture site. At this time we then used the sharp tipped entry pin and passed it past the sclerotic bone with the fracture reduced. We then reamed through the bone using the entry reamer. Once this was completed we were able to pass the guidewire. We held the fracture reduced as we carefully reamed to 11.5 mm obtaining appropriate chatter in the diaphysis. We elected to use a 10 mm nail based on her reaming. We used a guidewire to obtain an appropriate length and a 345 mm tibial nail was selected. Tibial nail was placed on the extra medullary guide and we attempted to impacted into place. Once we started to impacted we noted that we were going to now reduce the fracture based on having to deal with the sclerotic bone and her initial injury trajectory. At this time we elected to use 2 blocking screws 1 medial to help reduce the varus deformity and 1 posteriorly in the proximal fragment to help reduce the recurvatum deformity. We placed the 2 screws and then we reamed once more up to 11.5 mm with the fracture adequately reduced and the blocking screws in place. Once this was done we carefully introduced the nail. Nail was introduced into the distal tibia and the fracture reduced appropriately with the blocking screws. At this time blocking she was placed distally. We were able to back slap and compress the fracture. The nail remained seated far enough in the proximal tibia that we elected to place the proximal interlocking screw in a dynamic fashion. We did so in hopes that we could help induce compression of the fracture when the patient is able to start weightbearing further inducing healing. Once all the interlocking screws were placed wounds were copiously ate out normal saline. The arthrotomy was copiously irrigated out normal saline. The arthrotomy was closed in 1 Vicryl. Skin was closed with 2-0 Vicryl and final skin closure was done with nylon sutures. Xeroform dressings were placed. Compressive dressings were placed. Patient was placed in a posterior splint. Patient was then awakened by anesthesia and transferred to the PACU for recovery. Postop plan: 81 mg aspirin p.o. twice daily for DVT prophylaxis. Nonweightbearing for 2 weeks followed by weightbearing as tolerated once the splint is removed in 2 weeks and skin is checked. Should be noted that compartments were checked at the beginning surgeon at the end of surgery and compartments were soft. Patient did have an anterior hematoma on examination. My physician automotive parts salesperson (PE) was a vital part of this case. They were important in appropriate retraction during the case, and protection of soft tissues. Additionally, my PA helped obtain appropriate reduction of the fracture and maintain it during the procedure. Their intimate knowledge of the case and my steps aided in safe and expedient completion of the procedure as well as appropriate position of the leg during the case. They were also vital in assisting with closure under my direct supervision. Complications No intraoperative complications Admit VTE Documentation VTE Present on Admission: No VTE Mechan Device Prophylaxis: SCD's and Thigh High [place] Hose VTE Pharm Prophylaxis ordered?: Yes
--- NOTE | 2023-01-21 16:45 | RAD_ITS ---
STUDY: X-RAY - RIGHT TIBIA AND FIBULA REASON FOR EXAM: Female, 57 years old. FRACTURE TECHNIQUE: 2 view(s) of the tibia and fibula were obtained. COMPARISON: 01/13/2023 FINDINGS: Osteotomy of the proximal fibula with heterogeneous sclerosis in the medial lysis, as seen on prior x-ray. There is some periosteal reaction. Medullary gianna with distal and proximal interlocking screws. Nondisplaced fracture of the right fibular head, not clearly seen on prior exam. There is non-specific soft tissue swelling. RAD/Tibia & Fibula 2 Views IMPRESSION: Status post orthopedic fixation, as above. Electronically Signed: Amado Neil MD (Brooks) at 17:06 EST ,
[2023-01-21 17:15] LABS: Bedside Glucose 112 mg/dL (74-106)
[2023-01-21] MEDS: MELATONIN 10 MG TABLET 5 MG PO (21:01)
[2023-01-21] MEDS: Atorvastatin Calcium 40 MG Tablet PO (21:01)
[2023-01-21] MEDS: Sertraline 50 MG Tablet PO (21:01)
[2023-01-21] MEDS: Sodium Bicarbonate 650 MG Tablet PO (21:01)
[2023-01-21] MEDS: Aspirin E.C. 81 MG Tablet PO (21:01)
[2023-01-21] MEDS: Calcitriol 0.25 MCG Capsule PO (21:01)
[2023-01-21] MEDS: Amitriptyline 100 MG Tablet PO (21:01)
[2023-01-21 22:29] LABS: Bedside Glucose 155 mg/dL (74-106)
[2023-01-22 01:25] VITALS: BP 135/64; PULSE 99; RESP 18; TEMP 36.8; O2SAT 96
[2023-01-22] MEDS: Clindamycin 600 MG/50 ML BAG 100 MG IV ×2 (01:26→08:34)
[2023-01-22 02:46] VITALS: BMI 33.7
[2023-01-22] MEDS: Acetaminophen 500 MG Tablet 1000 MG PO ×3 (05:22→23:02)
[2023-01-22] MEDS: Heparin Injection (Vial) 5,000 UNIT/ML VIAL 5000 UNIT SC ×3 (05:23→23:02)
[2023-01-22 05:30] VITALS: BP 126/62; PULSE 94; RESP 18; TEMP 36.6; O2SAT 97
[2023-01-22 06:48] LABS: Hematocrit 27.7 % (37-47); Hemoglobin 8.4 g/dL (12.0-15.0); Mean Corp Hgb Conc 30.3 g/dL (32-36); Mean Corpuscular Hgb 30.9 pg (27.0-32.0); Mean Corpuscular Volume 101.8 fL (81-99); Mean Platelet Vol. 9.5 fl (6.2-12.0); Platelet Count 161 K/mm3 (150-450); RBC Distribution Width CV 13.8 % (11.6-14.6); Red Blood Count 2.72 M/mm3 (4.2-5.4); White Blood Count 4.7 K/mm3 (4.4-11.0)
[2023-01-22 06:56] LABS: Bedside Glucose 140 mg/dL (74-106)
[2023-01-22 08:07] LABS: Anion Gap 7 (5-15); BUN 50 mg/dL (7-18); BUN/Creat Ratio 10.5 RATIO (10-20); Calcium,Total 8.6 mg/dL (8.5-10.1); Chloride 104 mmol/L (98-107); Creatinine, Serum 4.75 mg/dL (0.55-1.02); EST Glomerular Filtration Rate 10 mL/min (>60); Est Glom Filt Rate - Afr Amer 12 mL/min (>60); Estimated Creatinine Clearance 13.18 ml/min; Glucose 159 mg/dL (74-106); Sodium Level 134 mmol/L (136-145)
[2023-01-22 08:13] VITALS: BP 136/63; PULSE 97; RESP 18; TEMP 36.5; O2SAT 96
--- NOTE | 2023-01-22 08:24 | PN.ORTHO_ITS ---
Subjective Subjective 57-year-old female postop day 1 status post right intramedullary tibial nail with suprapatellar approach. Patient is doing well. She is using Tylenol for pain per the chart. Pain is reported at 3 out of 10. She has tenderness around the fracture site still. She is able to wiggle her toes. She seems increasing ly comfortable from yesterday prior to surgery. No acute events overnight patient has had some constipation which primary service is treating. Did have some postanesthesia effects which improved this morning. Objective Data Objective Data Vital Signs: Vital Signs Temp Pulse Resp BP Pulse Ox O2 Del Method O2 Flow Rate 97.7 F L 97 18 136/63 H 96 Nasal Cannula 2 01/22/23 08:13 01/22/23 08:13 01/22/23 08:13 01/22/23 08:13 01/22/23 08:13 01/22/23 08:21 01/22/23 08:13 Oxygen Flow Rate (L/min) 2 Oxygen Delivery Method Nasal Cannula Weight: 221 lb 12.56 oz Body Mass Index (BMI) 33.7 Intake & Output: Intake and Output for Last 24 Hours 01/20/23 01/21/23 01/22/23 23:59 23:59 23:59 Intake Total 550 / 550 650 / 1010 770 / 770 Output Total 1650 / 1950 700 / 700 200 / 200 Balance -1100 / -1400 -50 / 310 570 / 570 Lab / Micro Data Attestation: I reviewed the patient's lab results. 01/22/23 05:30 01/22/23 05:30 Labs: Laboratory Results - last 24 hr 01/21/23 06:00: Retic Count 1.09, Immature Retic Fraction 9.80, Retic Hgb Equivalent 32.9, Phosphorus 5.4 H, Iron 21 L, TIBC 256, Iron Saturation 8.2 L, Ferritin 307 H, Vitamin B12 543, Vitamin D 25-Hydroxy 83.2 01/21/23 12:58: POC Glucose 79 01/21/23 13:07: Potassium 4.5 01/21/23 16:57: POC Glucose 112 H 01/21/23 21:41: POC Glucose 155 H 01/22/23 05:30: WBC 4.7, RBC 2.72 L, Hgb 8.4 L, Hct 27.7 L, MCV 101.8 H, MCH 30.9, MCHC 30.3 L, RDW Std Deviation 52.0 H, RDW Coeff of Ben 13.8, Plt Count 161, MPV 9.5, Sodium 134 L, Potassium 6.0 H*, Chloride 104, Carbon Dioxide 23.0, Anion Gap 7, BUN 50 H, Creatinine 4.75 H, Estim Creat Clear Calc 13.18, Est GFR (MDRD) Af Amer 12 L, Est GFR (MDRD) Non-Af 10 L, BUN/Creatinine Ratio 10.5, Glucose 159 H, Calcium 8.6 01/22/23 06:38: POC Glucose 140 H Radiography Diagnostic Testing: Radiology Impression Tibia/Fibula X-Ray 01/21/23 16:45 IMPRESSION: Status post orthopedic fixation, as above. Electronically Signed: Amado Neil MD ([place]) at 17:06 EST Reading Location ID and State: [facility] / [place] , Service support , Physical Exam Const alert, oriented x3 and no apparent distress Extremity Extremity Narrative: Right lower extremity: Patient is in a splint splint shows no saturation. Well- padded. Sensations intact light touch deep peroneal nerve, superficial peroneal nerve and tibial nerve distributions were foot is accessible. Digits are warm and pink with brisk cap refill. Patient able to wiggle all digits without severe pain. Compartments palpated through the splint are soft and compressible. Moderate tenderness with compression. Assessment & Plan Assessment/Plan (1) Pathological fracture, right tibia, initial encounter for fracture: PLAN: Postop day 1 right intramedullary tibial nail. 1. DVT prophylaxis: Risk of DVTs and PEs were discussed the patient. Patient has significant renal disease she tolerates aspirin on a regular basis. I recommended we increase her dose to 1 baby aspirin twice a day. Patient was counseled on symptoms consistent with DVT and PE. After discussion of risk- benefit ratio all parties have agreed to proceed with DVT prophylaxis of 1 baby aspirin twice a day. 2. Pain control: Per primary service. Patient doing well with minimal narcotics in the last 24 hours. 3. Therapy: Patient has nonweightbearing restriction on the right lower extremity for 2 weeks however, at this time would not restrict any activity that can be tolerated with nonweightbearing on the right lower extremity. 4. Disposition: Patient stable from orthopedic standpoint recommend follow-up in 2 weeks for suture removal, splint removal and advancement of care. Plan is to increase weightbearing on the right lower extremity in 2 weeks. After history of these transverse fractures was discussed the patient as well as stimulation of bone healing with weightbearing. Patient demonstrates understanding and is agreeable with current treatment plan. When she is medically stable she should be ready for discharge. Please call orthopedics with any further questions or concerns. [facility] Office:
[2023-01-22] MEDS: Calcitriol 0.25 MCG Capsule PO ×2 (08:34→23:01)
[2023-01-22] MEDS: Sodium Polystyrene Sulfonate 15 GM/60 ML UDC PO (08:34)
[2023-01-22] MEDS: Cholecalciferol (Vit D3) 125 MCG CAPSULE (5,000 UNITS) PO (08:35)
[2023-01-22] MEDS: Aspirin E.C. 81 MG Tablet PO ×2 (08:35→17:04)
[2023-01-22] MEDS: Labetalol 100 MG Tablet 50 MG PO ×2 (08:35→23:04)
[2023-01-22] MEDS: Pantoprazole Sodium 20 MG Tablet PO (08:35)
[2023-01-22] MEDS: Dextrose 50%-Water 25 GM/50 ML DISP.SYRIN IV (09:38)
[2023-01-22 12:01] LABS: Bedside Glucose 201 mg/dL (74-106)
[2023-01-22] MEDS: oxyCODONE 5 MG Tablet PO ×2 (12:05→23:19)
--- NOTE | 2023-01-22 13:56 | PCM.PN.HOSP ---
Reason for Visit Reason for Visit: Diagnoses Type 2 diabetes mellitus without complications (01/19/23) Depression, unspecified (01/19/23) Anxiety disorder, unspecified (01/19/23) Essential (primary) hypertension (01/19/23) Unilateral primary osteoarthritis, right knee (01/19/23) Pathological fracture, right tibia, initial encounter for fracture (01/19/23) End stage renal disease (01/19/23) Difficulty in walking, not elsewhere classified (01/19/23) Unspecified fracture of shaft of right fibula, initial encounter for closed fracture (01/19/23) Unspecified fracture of right lower leg, initial encounter for closed fracture (01/19/23) Personal history of other mental and behavioral disorders (01/19/23) Personal history of other diseases of the respiratory system (01/19/23) Personal history of nicotine dependence (01/19/23) Dependence on renal dialysis (01/19/23) Objective Data Objective Data Vital Signs: Vital Signs Temp Pulse Resp BP Pulse Ox O2 Del Method O2 Flow Rate 97.7 F L 97 18 136/63 H 96 Nasal Cannula 2 01/22/23 08:13 01/22/23 08:13 01/22/23 08:13 01/22/23 08:13 01/22/23 08:13 01/22/23 08:21 01/22/23 08:13 Oxygen Flow Rate (L/min) 2 Oxygen Delivery Method Nasal Cannula Weight: 221 lb 12.56 oz Body Mass Index (BMI) 33.7 Intake & Output: Intake and Output for Last 24 Hours 01/20/23 01/21/23 01/22/23 23:59 23:59 23:59 Intake Total 550 / 550 650 / 1010 820 / 820 Output Total 1650 / 1950 700 / 700 200 / 200 Balance -1100 / -1400 -50 / 310 620 / 620 Lab / Micro Data 01/22/23 05:30 01/22/23 05:30 Labs: Laboratory Results - last 24 hr 01/21/23 16:57: POC Glucose 112 H 01/21/23 21:41: POC Glucose 155 H 01/22/23 05:30: WBC 4.7, RBC 2.72 L, Hgb 8.4 L, Hct 27.7 L, MCV 101.8 H, MCH 30.9, MCHC 30.3 L, RDW Std Deviation 52.0 H, RDW Coeff of Ben 13.8, Plt Count 161, MPV 9.5, Sodium 134 L, Potassium 6.0 H*, Chloride 104, Carbon Dioxide 23.0, Anion Gap 7, BUN 50 H, Creatinine 4.75 H, Estim Creat Clear Calc 13.18, Est GFR (MDRD) Af Amer 12 L, Est GFR (MDRD) Non-Af 10 L, BUN/Creatinine Ratio 10.5, Glucose 159 H, Calcium 8.6 01/22/23 06:38: POC Glucose 140 H 01/22/23 11:07: POC Glucose 201 H Radiography Diagnostic Testing: Radiology Impression Tibia/Fibula X-Ray 01/21/23 16:45 IMPRESSION: Status post orthopedic fixation, as above. Electronically Signed: Amado Neil MD ([place]) at 17:06 EST Reading Location ID and State: [facility] / [place] , Service support , Physical Exam Narrative Seen and examined. Patient had intramedullary nailing of tibia done yesterday. Patient has mild pain. Hyperkalemia, K6.0. Twelve-lead EKG done shows normal sinus rhythm, no hyperacute T waves. Kayexalate given. Discussed with her and the crossing guard regarding metabolic bone disease. Patient states her legs gave out on walking on plain ground/floor, trivial fall resulting into fracture. Not on the stairs. Did not feel dizziness headache, diplopia or syncope. Physical exam: General: Alert, Oriented x3, Cooperative HEENT: Atraumatic, PERRLA, EOMI, Normocephalic Oral: No Gingival or Mucosal Lesions/ Ulcerations Neck: Supple, No JVD, Negative Carotid Bruits Lungs: Air entry diminished in bilateral lung bases. No crepitation/rhonchi Cardiovascular: Regular rate, Regular Rhythm, Normal S1, Normal S2, No murmurs Abdomen: Bowel Sounds Present, Soft, Non Tender, Non-Distended : No renal angle tenderness. No suprapubic tenderness. Extremities: No edema, Capillary Refill Less than 3 Seconds Skin: No rashes, No breakdown Musculoskeletal: Mild tenderness on the right tibia-fibula. Dressing is dry and intact. Ronald wrap bandage. ROM not attempted. Neurological: Cranial nerves II-XII grossly intact, DTR 2+/4. No acute focal neurological deficit. Psych/Mental Status: Flat affect. Assessment & Plan Assessment/Plan (1) Fracture of right lower extremity: QUALIFIERS: Encounter type: initial encounter Fracture type: closed Qualified Code(s): S82.91XA - Unspecified fracture of right lower leg, initial encounter for closed fracture (2) History of COPD: (3) ESRD (end stage renal disease) on dialysis: PLAN: Plan 57-year-old female was brought to ED by EMS for fall on her buttocks and her leg was tucked under her. She complains of severe pain from hip to the tip of the toes, denies numbness or tingling. CT scan of right lower extremity showed complete fracture through proximal tibia and fibular metadiaphysis with soft tissue edema. 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 On hydromorphone because of end-stage renal disease. Right lower leg splinted in ED. pending surgery consulted for surgical opinion. PT and OT on board. 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 Patient serum calcium is 8.6, phosphorus 5.9, magnesium 2.1. Vitamin D 25 and phosphorus are 83.2 and 5.4 respectively. PTH high 433. Vitamin B12 543. Discussed with the crossing guard. She started dialysis about 1 year ago her phosphate and PTH is not very high to warrant or indication of treatment. Bicarb is 26 and patient on sodium bicarbonate. As per crossing guard, phosphorus above 600 might need treatment. 01/22: Patient had right suprapatellar intramedullary tibial nail. Found to have right pathological transverse proximal tibia extra-articular fracture. #End-stage renal disease on dialysis Thursday, , Thursday: Pinball Machine Repairer consulted. -Potassium very slightly elevated at 5.3, repeat potassium 5.4. Patient undergoing hemodialysis. No shortness of breath or hypoxia. 01/22: Hyperkalemia K6.0. No signs of acute hyperkalemia like tenting of T waves or widened QRS complex/sine waves on EKG. Kayexalate given. Discussed with nursing staff to inform crossing guard that patient might need dialysis. She had only 2.5 hours of dialysis yesterday. #Type 2 diabetes mellitus: Glucose in BMP is 81. Serum magnesium 2.1. -Glucose checks and sliding scale insulin -Holding glipizide and Trulicity Chronic COPD Albuterol as needed not in exacerbation. #Chronic anemia, secondary to ESRD/chronic disease -Appears to be at baseline -01/21: Reticulocyte panel and iron work-up ordered. Patient on ferrous sulfate 325 mg daily. Serum iron low, ferritin high 307. Iron saturation 8.2% low. Reticulocyte count, immature reticulocyte fraction normal. Overall, iron profile is suggestive of anemia of chronic disease/renal disease. We will change her ferrous sulfate to every other day. 01/22: Hemoglobin is 8.4. Stable for last 2 to 3 days. #Depression -Continue Zoloft #GERD -Continue PPI #Hypertension -Continue blood pressure medications and adjust as tolerated #DVT ppx: Heparin subcu Charges/Coding Visit Charges Inpatient E&M: 68790 Subs Hosp L2
[2023-01-22 14:31] VITALS: BP 146/69; PULSE 99; RESP 18; TEMP 36.4; O2SAT 98
[2023-01-22 14:58] LABS: Anion Gap 8 (5-15); BUN 56 mg/dL (7-18); BUN/Creat Ratio 11.2 RATIO (10-20); Calcium,Total 8.5 mg/dL (8.5-10.1); Chloride 100 mmol/L (98-107); Creatinine, Serum 5.01 mg/dL (0.55-1.02); EST Glomerular Filtration Rate 9 mL/min (>60); Est Glom Filt Rate - Afr Amer 11 mL/min (>60); Glucose 179 mg/dL (74-106); Potassium 4.9 mmol/L (3.5-5.1); Sodium Level 133 mmol/L (136-145)
[2023-01-22] MEDS: Polyethylene Glycol 3350 17 GM PACKET PO ×2 (15:22→23:15)
[2023-01-22 16:32] LABS: Bedside Glucose 144 mg/dL (74-106)
--- NOTE | 2023-01-22 18:21 | PCM.PN.REN ---
Subjective Subjective Following for ESRD. Objective Data Objective Data Vital Signs: Vital Signs Temp Pulse Resp BP Pulse Ox O2 Del Method O2 Flow Rate 97.6 F L 99 18 146/69 H 98 Room Air 2 01/22/23 14:31 01/22/23 14:31 01/22/23 14:31 01/22/23 14:31 01/22/23 14:31 01/22/23 14:31 01/22/23 08:13 Oxygen Flow Rate (L/min) 2 Oxygen Delivery Method Room Air Weight: 100.6 kg Body Mass Index (BMI) 33.7 Intake & Output: Intake and Output for Last 24 Hours 01/20/23 01/21/23 01/22/23 23:59 23:59 23:59 Intake Total 550 / 550 650 / 1010 1220 / 1220 Output Total 1650 / 1950 700 / 700 200 / 200 Balance -1100 / -1400 -50 / 310 1020 / 1020 Lab / Micro Data 01/22/23 05:30 01/22/23 13:50 Labs: Laboratory Results - last 24 hr 01/21/23 21:41: POC Glucose 155 H 01/22/23 05:30: WBC 4.7, RBC 2.72 L, Hgb 8.4 L, Hct 27.7 L, MCV 101.8 H, MCH 30.9, MCHC 30.3 L, RDW Std Deviation 52.0 H, RDW Coeff of Ben 13.8, Plt Count 161, MPV 9.5, Sodium 134 L, Potassium 6.0 H*, Chloride 104, Carbon Dioxide 23.0, Anion Gap 7, BUN 50 H, Creatinine 4.75 H, Estim Creat Clear Calc 13.18, Est GFR (MDRD) Af Amer 12 L, Est GFR (MDRD) Non-Af 10 L, BUN/Creatinine Ratio 10.5, Glucose 159 H, Calcium 8.6 01/22/23 06:38: POC Glucose 140 H 01/22/23 11:07: POC Glucose 201 H 01/22/23 13:50: Sodium 133 L, Potassium 4.9, Chloride 100, Carbon Dioxide 25.0, Anion Gap 8, BUN 56 H, Creatinine 5.01 H, Estim Creat Clear Calc 12.50, Est GFR (MDRD) Af Amer 11 L, Est GFR (MDRD) Non-Af 9 L, BUN/Creatinine Ratio 11.2, Glucose 179 H, Calcium 8.5 01/22/23 16:05: POC Glucose 144 H Physical Exam Narrative Alert awake oriented x 3 no obvious distress no pallor no icterus no JVD s1s2 no murmurs lungs clear abdomen soft no organomegaly no edema no cyanosis Assessment & Plan Assessment/Plan (1) ESRD (end stage renal disease) on dialysis: (2) Hyperkalemia: (3) Secondary hyperparathyroidism: (4) Benign essential hypertension: PLAN: Plan Impression/Plan: The patient is a 57-year-old woman with past history of type 2 diabetes mellitus, hypertension, ESRD, osteoporosis, and hyperlipidemia. The patient presented to the hospital on 01/19/2023 after ground-level fall. She was found to have right tibial fracture and is status post right intramedullary tibial nail on 01/21/2023. Nephrology is following for ESRD and dialysis management. ESRD. The patient usually dialyzes on TTS schedule at [facility]. Dr. Hill is her primary senior security analyst. The patient is on on Thursday, Thursday, and Thursday dialysis schedule this week because of . The patient did get partial dialysis yesterday. There is no need for dialysis today. She did get temporizing measure for hyperkalemia earlier today. We will recheck potassium level again tomorrow morning to determine if she needs extra session of dialysis prior to his scheduled dialysis on 01/24/2023. Hyperkalemia. Potassium level was 6.0 mmol/L this morning. Potassium level did improve with insulin?D50. As discussed above, we will recheck potassium level tomorrow morning. If potassium level exceeds 5.5 mmol/L again, I will dialyze her tomorrow in addition to scheduled dialysis on 01/24/2023. Secondary hyperparathyroidism. PTH has been in target range at dialysis unit. Continue calcitriol. Check calcium/phosphorus tomorrow. The patient is currently not on any phosphorus binder.
[2023-01-22 22:48] VITALS: BP 149/71; PULSE 101; RESP 18; TEMP 36.6; O2SAT 96
[2023-01-22] MEDS: Atorvastatin Calcium 40 MG Tablet PO (23:01)
[2023-01-22] MEDS: Senna/Docusate Sodium 1 Tablet 2 TABLET PO (23:01)
[2023-01-22] MEDS: Amitriptyline 100 MG Tablet PO (23:02)
[2023-01-22] MEDS: MELATONIN 10 MG TABLET 5 MG PO (23:02)
[2023-01-22] MEDS: Sodium Bicarbonate 650 MG Tablet PO (23:03)
[2023-01-22] MEDS: Insulin Lispro 100 UNIT/ML INSULN.PEN SC (23:16)
[2023-01-22] MEDS: Psyllium 1 PACKET PO (23:16)
[2023-01-22] MEDS: Sertraline 50 MG Tablet PO (23:19)
[2023-01-22 23:46] LABS: Bedside Glucose 195 mg/dL (74-106)
[2023-01-23 05:52] LABS: Absolute Lymphocyte Count 1.18 X10^3/uL (0.83-4.51); Basophil# 0.02 X10^3/uL; Basophil% 0.3 % (0-1); Eosinophil# 0.11 X10^3/uL; Eosinophils% 1.6 % (0-5); Hemoglobin 8.1 g/dL (12.0-15.0); Lymphocyte # 1.18 X10^3/ul (0.83-4.51); Lymphocyte % 16.9 % (19-41); Mean Corpuscular Hgb 29.9 pg (27.0-32.0); Mean Corpuscular Volume 99.6 fL (81-99); Mean Platelet Vol. 9.5 fl (6.2-12.0); Monocyte# 0.65 X10^3/uL; Monocyte% 9.3 % (0-10); NRBC Flagged by Analyzer 0 % (0-5); Neutrophil # 4.98 X10^3/uL (2.7-7.7); Neutrophil % 71.5 % (47-70); Platelet Count 195 K/mm3 (150-450); RBC Distribution Width CV 13.7 % (11.6-14.6); RBC Distribution Width SD 50.3 fl (35.1-43.9); Red Blood Count 2.71 M/mm3 (4.2-5.4)
[2023-01-23 06:00] VITALS: BMI 34.2
[2023-01-23 06:33] LABS: Albumin, Serum 2.3 g/dL (3.2-5.0); BUN 51 mg/dL (7-18); Calcium,Total 8.4 mg/dL (8.5-10.1); Chloride 100 mmol/L (98-107); Creatinine, Serum 5.11 mg/dL (0.55-1.02); EST Glomerular Filtration Rate 9 mL/min (>60); Est Glom Filt Rate - Afr Amer 11 mL/min (>60); Estimated Creatinine Clearance 12.25 ml/min; Glucose 120 mg/dL (74-106); Phosphorus 4.6 mg/dL (2.5-4.9); Potassium 4.8 mmol/L (3.5-5.1); Sodium Level 134 mmol/L (136-145)
[2023-01-23] MEDS: Acetaminophen 500 MG Tablet 1000 MG PO ×3 (06:39→21:03)
[2023-01-23] MEDS: Heparin Injection (Vial) 5,000 UNIT/ML VIAL 5000 UNIT SC (06:40)
[2023-01-23 06:50] VITALS: BP 159/71; PULSE 115; RESP 18; TEMP 37.8; O2SAT 96
[2023-01-23 07:24] LABS: Bedside Glucose 135 mg/dL (74-106)
--- NOTE | 2023-01-23 08:50 | CASEMGMT ---
Addendum entered by Kirsten Fournier 01/23/23 11:05: Social Work [facility] is full, SW spoke w/pt about other options, she would like a referral sent to [place]. SW let d/c store planner know. LARRY Palacios Original Note: Social Work SW met w/pt in regard to discharge plan. Pt would like a referral sent to [facility]. Pt is not able to get herself back and forth to dialysis, pt's chair time is Thursday, and Thursday at 7:10 at [facility] here in [place]. Pt normally drives herself back and forth. Pt states if [facility] cannot take her she will go anywhere else, would prefer to stay in [place], but does NOT want to go to [facility]. SW let d/c store planner Elenita know, she will send referral to [facility] [facility]. LARRY Palacios
[2023-01-23 09:14] VITALS: O2SAT 96
--- NOTE | 2023-01-23 09:28 | CASEMGMT ---
Discharge Planning Referral sent to [facility] via [facility]. Elenita Peoples, Discharge Planning Asst.
[2023-01-23 09:31] VITALS: BP 135/79; PULSE 110; RESP 18; TEMP 36.9; O2SAT 95
[2023-01-23] MEDS: Psyllium 1 PACKET PO ×2 (09:37→21:06)
[2023-01-23] MEDS: Polyethylene Glycol 3350 17 GM PACKET PO ×2 (09:37→21:07)
[2023-01-23] MEDS: Calcitriol 0.25 MCG Capsule PO ×2 (09:38→21:04)
[2023-01-23] MEDS: Ferrous Sulfate 325 MG Tablet PO (09:38)
[2023-01-23] MEDS: Pantoprazole Sodium 20 MG Tablet PO (09:38)
[2023-01-23] MEDS: Aspirin E.C. 81 MG Tablet PO (09:38)
[2023-01-23] MEDS: Senna/Docusate Sodium 1 Tablet 2 TABLET PO ×2 (09:38→21:11)
[2023-01-23] MEDS: Cholecalciferol (Vit D3) 125 MCG CAPSULE (5,000 UNITS) PO (09:38)
[2023-01-23] MEDS: Labetalol 100 MG Tablet 50 MG PO ×2 (09:41→21:07)
--- NOTE | 2023-01-23 10:11 | PCM.PN.ORT ---
Subjective Subjective Patient reports she is doing well overall. No acute events overnight. She does report some abdominal pain in relation to constipation additionally she reports increased postoperative pain today. Her heart rate has been around 100 recently at 110-115. I did specifically question her about chest pain or shortness of breath which she denies at this time. Lower extremity does have pain as expected from surgery. Patient's oxygen saturation remained stable on room air. Objective Data Objective Data Vital Signs: Vital Signs Temp Pulse Resp BP Pulse Ox O2 Del Method O2 Flow Rate 98.4 F 110 H 18 135/79 H 95 Room Air 2 01/23/23 09:31 01/23/23 09:31 01/23/23 09:31 01/23/23 09:31 01/23/23 09:31 01/23/23 09:31 01/22/23 08:13 Oxygen Flow Rate (L/min) 2 Oxygen Delivery Method Room Air Weight: 224 lb 13.944 oz Body Mass Index (BMI) 34.2 Intake & Output: Intake and Output for Last 24 Hours 01/21/23 01/22/23 01/23/23 23:59 23:59 23:59 Intake Total 650 / 1010 1220 / 1220 Output Total 700 / 700 200 / 200 Balance -50 / 310 1020 / 1020 Lab / Micro Data Attestation: I reviewed the patient's lab results. 01/23/23 04:50 01/23/23 04:50 Labs: Laboratory Results - last 24 hr 01/22/23 11:07: POC Glucose 201 H 01/22/23 13:50: Sodium 133 L, Potassium 4.9, Chloride 100, Carbon Dioxide 25.0, Anion Gap 8, BUN 56 H, Creatinine 5.01 H, Estim Creat Clear Calc 12.50, Est GFR (MDRD) Af Amer 11 L, Est GFR (MDRD) Non-Af 9 L, BUN/Creatinine Ratio 11.2, Glucose 179 H, Calcium 8.5 01/22/23 16:05: POC Glucose 144 H 01/22/23 22:45: POC Glucose 195 H 01/23/23 04:50: WBC 7.0, RBC 2.71 L, Hgb 8.1 L, Hct 27.0 L, MCV 99.6 H, MCH 29.9, MCHC 30.0 L, RDW Std Deviation 50.3 H, RDW Coeff of Ben 13.7, Plt Count 195, MPV 9.5, Immature Gran % (Auto) 0.400, Neut % (Auto) 71.5 H, Lymph % (Auto) 16.9 L, [place] % (Auto) 9.3, Eos % (Auto) 1.6, Baso % (Auto) 0.3, Absolute Neuts (auto) 5.0, Absolute Lymphs (auto) 1.18, Nucleated RBC % 0, Sodium 134 L, Potassium 4.8, Chloride 100, Carbon Dioxide 26.0, BUN 51 H, Creatinine 5.11 H, Estim Creat Clear Calc 12.25, Est GFR (MDRD) Af Amer 11 L, Est GFR (MDRD) Non-Af 9 L, BUN/Creatinine Ratio 10.0, Glucose 120 H, Calcium 8.4 L, Phosphorus 4.6, Albumin 2.3 L 01/23/23 06:39: POC Glucose 135 H Physical Exam Const alert, oriented x3, no apparent distress and well nourished General Appearance: cooperative and comfortable Resp normal respiratory effort Extremity Extremity Narrative: Right lower extremity: Splint and dressing are in place clean dry and intact. Patient able to wiggle digits. All digits are warm and pink with brisk cap refill. Sensations intact light touch superficial peroneal deep peroneal and tibial nerve distributions. Assessment & Plan Assessment/Plan (1) Pathological fracture, right tibia, initial encounter for fracture: PLAN: Postop day 2 right intramedullary tibial nail. 1. DVT prophylaxis: Risk of DVTs and PEs were discussed the patient. Patient has significant renal disease she tolerates aspirin on a regular basis. I recommended we increase her dose to 1 baby aspirin twice a day. Patient was counseled on symptoms consistent with DVT and PE. After discussion of risk-benefit ratio all parties have agreed to proceed with DVT prophylaxis of 1 baby aspirin twice a day. 2. Pain control: Per primary service. Patient doing well with minimal narcotics in the last 24 hours. 3. Therapy: Patient has nonweightbearing restriction on the right lower extremity for 2 weeks however, at this time would not restrict any activity that can be tolerated with nonweightbearing on the right lower extremity. 4. Tachypnea: Patient typically runs around 100. Slightly increased today. Did discuss with the patient other signs and symptoms of pulmonary embolus. At this time patient does not demonstrate these other signs and symptoms additionally heart rate may be increased in relation to slight increase in pain today. Will discuss with the primary team. I also discussed with nurse. If patient does demonstrate any oxygenation changes or complaints of chest pain or shortness of breath recommended further workup for pulmonary embolus. Disposition: Patient stable from orthopedic standpoint recommend follow-up in 2 weeks for suture removal, splint removal and advancement of care. Plan is to increase weightbearing on the right lower extremity in 2 weeks. After history of these transverse fractures was discussed the patient as well as stimulation of bone healing with weightbearing. Patient demonstrates understanding and is agreeable with current treatment plan. When she is medically stable she should be ready for discharge. Please call orthopedics with any further questions or concerns. [facility] Office:
--- NOTE | 2023-01-23 10:35 | CASEMGMT ---
Discharge Planning Patient has been declined by [facility] related to no bed availibility. SW updated. Elenita Peoples, Discharge Planning Asst.
--- NOTE | 2023-01-23 10:55 | CASEMGMT ---
Discharge Planning Referrals sent to [place] via [facility]. Elenita Peoples, Discharge Planning Asst.
[2023-01-23] MEDS: Insulin Lispro 100 UNIT/ML INSULN.PEN SC ×3 (11:30→20:59)
[2023-01-23] MEDS: APIXABAN 2.5 MG TABLET (WCH) PO ×2 (11:30→21:22)
[2023-01-23 11:49] LABS: Bedside Glucose 249 mg/dL (74-106)
--- NOTE | 2023-01-23 11:54 | CASEMGMT ---
Discharge Planning Patient has been declined by [facility] d/t no bed availability. SW updated. Elenita Peoples, Discharge Planning Asst.
--- NOTE | 2023-01-23 12:03 | PN.HOSP_ITS ---
Reason for Visit Reason for Visit: Diagnoses Type 2 diabetes mellitus without complications (01/19/23) Hyperkalemia (01/19/23) Depression, unspecified (01/19/23) Anxiety disorder, unspecified (01/19/23) Essential (primary) hypertension (01/19/23) Unilateral primary osteoarthritis, right knee (01/19/23) Pathological fracture, right tibia, initial encounter for fracture (01/19/23) End stage renal disease (01/19/23) Secondary hyperparathyroidism of renal origin (01/19/23) Difficulty in walking, not elsewhere classified (01/19/23) Unspecified fracture of shaft of right fibula, initial encounter for closed fracture (01/19/23) Unspecified fracture of right lower leg, initial encounter for closed fracture (01/19/23) Personal history of other mental and behavioral disorders (01/19/23) Personal history of other diseases of the respiratory system (01/19/23) Personal history of nicotine dependence (01/19/23) Dependence on renal dialysis (01/19/23) Objective Data Objective Data Vital Signs: Vital Signs Temp Pulse Resp BP Pulse Ox O2 Del Method O2 Flow Rate 98.4 F 110 H 18 135/79 H 95 Room Air 2 01/23/23 09:31 01/23/23 09:31 01/23/23 09:31 01/23/23 09:31 01/23/23 09:31 01/23/23 09:31 01/22/23 08:13 Oxygen Flow Rate (L/min) 2 Oxygen Delivery Method Room Air Weight: 224 lb 13.944 oz Body Mass Index (BMI) 34.2 Intake & Output: Intake and Output for Last 24 Hours 01/21/23 01/22/23 01/23/23 23:59 23:59 23:59 Intake Total 650 / 1010 1220 / 1220 Output Total 700 / 700 200 / 200 Balance -50 / 310 1020 / 1020 Lab / Micro Data 01/23/23 04:50 01/23/23 04:50 Labs: Laboratory Results - last 24 hr 01/22/23 13:50: Sodium 133 L, Potassium 4.9, Chloride 100, Carbon Dioxide 25.0, Anion Gap 8, BUN 56 H, Creatinine 5.01 H, Estim Creat Clear Calc 12.50, Est GFR (MDRD) Af Amer 11 L, Est GFR (MDRD) Non-Af 9 L, BUN/Creatinine Ratio 11.2, Glucose 179 H, Calcium 8.5 01/22/23 16:05: POC Glucose 144 H 01/22/23 22:45: POC Glucose 195 H 01/23/23 04:50: WBC 7.0, RBC 2.71 L, Hgb 8.1 L, Hct 27.0 L, MCV 99.6 H, MCH 29.9, MCHC 30.0 L, RDW Std Deviation 50.3 H, RDW Coeff of Ben 13.7, Plt Count 195, MPV 9.5, Immature Gran % (Auto) 0.400, Neut % (Auto) 71.5 H, Lymph % (Auto) 16.9 L, [place] % (Auto) 9.3, Eos % (Auto) 1.6, Baso % (Auto) 0.3, Absolute Neuts (auto) 5.0, Absolute Lymphs (auto) 1.18, Nucleated RBC % 0, Sodium 134 L, Potassium 4.8, Chloride 100, Carbon Dioxide 26.0, BUN 51 H, Creatinine 5.11 H, Estim Creat Clear Calc 12.25, Est GFR (MDRD) Af Amer 11 L, Est GFR (MDRD) Non-Af 9 L, BUN/Creatinine Ratio 10.0, Glucose 120 H, Calcium 8.4 L, Phosphorus 4.6, Albumin 2.3 L 01/23/23 06:39: POC Glucose 135 H 01/23/23 11:27: POC Glucose 249 H Physical Exam Narrative Seen and examined. Patient does not have chest pain or shortness of breath or dizziness. Mild abdominal discomfort probably from constipation. Patient had little bowel movement yesterday on multiple stool softeners. Discussed with the tube making machine operator and orthopedic surgeon. Physical exam: General: Alert, Oriented x3, Cooperative HEENT: Atraumatic, PERRLA, EOMI, Normocephalic Oral: No Gingival or Mucosal Lesions/ Ulcerations Neck: Supple, No JVD, Negative Carotid Bruits Lungs: Air entry diminished in bilateral lung bases. No crepitation/rhonchi Cardiovascular: Heart rate in low 100s., Normal S1, Normal S2, No murmurs Abdomen: Bowel Sounds Present, Soft, Non Tender, Non-Distended : No renal angle tenderness. No suprapubic tenderness. Extremities: No edema, Capillary Refill Less than 3 Seconds Skin: No rashes, No breakdown Musculoskeletal: Mild tenderness on the right tibia-fibula. Dressing is dry and intact. Ronald wrap bandage on. ROM not attempted. Neurological: Cranial nerves II-XII grossly intact, DTR 2+/4. No acute focal neurological deficit. Psych/Mental Status: Flat affect. Assessment & Plan Assessment/Plan (1) Fracture of right lower extremity: QUALIFIERS: Encounter type: initial encounter Fracture type: closed Qualified Code(s): S82.91XA - Unspecified fracture of right lower leg, initial encounter for closed fracture (2) History of COPD: (3) ESRD (end stage renal disease) on dialysis: PLAN: Plan 57-year-old female was brought to ED by EMS for fall on her buttocks and her leg was tucked under her. She complains of severe pain from hip to the tip of the toes, denies numbness or tingling. CT scan of right lower extremity showed complete fracture through proximal tibia and fibular metadiaphysis with soft tissue edema. 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 On hydromorphone because of end-stage renal disease. Right lower leg splinted in ED. pending surgery consulted for surgical opinion. PT and OT on board. 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 Patient serum calcium is 8.6, phosphorus 5.9, magnesium 2.1. Vitamin D 25 and phosphorus are 83.2 and 5.4 respectively. PTH high 433. Vitamin B12 543. Discussed with the tube making machine operator. She started dialysis about 1 year ago her phosphate and PTH is not very high to warrant or indication of treatment. Bicarb is 26 and patient on sodium bicarbonate. As per tube making machine operator, phosphorus above 600 might need treatment. 01/22: Patient had right suprapatellar intramedullary tibial nail. Found to have right pathological transverse proximal tibia extra-articular fracture. 01/23: With high risk of DVT, patient is started on low-dose Eliquis 2.5 mg, earlier she was on baby aspirin 81 mg twice daily which is changed to once daily her home dose. DC heparin subcu for DVT prophylaxis. Patient also has chronic constipation problem and on senna S, MiraLAX, psyllium. Patient has she did not feel like good emptying of bowel therefore Dulcolax 10 mg oral 1 dose added. #End-stage renal disease on dialysis Thursday, , Thursday: Rn Pool consulted. -Potassium very slightly elevated at 5.3, repeat potassium 5.4. Patient undergoing hemodialysis. No shortness of breath or hypoxia. 01/22: Hyperkalemia K6.0. No signs of acute hyperkalemia like tenting of T waves or widened QRS complex/sine waves on EKG. Kayexalate given. Discussed with nursing staff to inform tube making machine operator that patient might need dialysis. She had only 2.5 hours of dialysis yesterday. 01/23: Patient is still urinates about 500 mL. Potassium is normal after hyperkalemia cocktail and Kayexalate yesterday. No need for hemodialysis. Discussed with the tube making machine operator. #Type 2 diabetes mellitus: Glucose in BMP is 81. Serum magnesium 2.1. -Glucose checks and sliding scale insulin -Holding glipizide and Trulicity 01/23 glucose 249. Will start long-acting insulin. Chronic COPD Albuterol as needed not in exacerbation. #Chronic anemia, secondary to ESRD/chronic disease -Appears to be at baseline -01/21: Reticulocyte panel and iron work-up ordered. Patient on ferrous sulfate 325 mg daily. Serum iron low, ferritin high 307. Iron saturation 8.2% low. Reticulocyte count, immature reticulocyte fraction normal. Overall, iron profile is suggestive of anemia of chronic disease/renal disease. We will change her ferrous sulfate to every other day. 01/22: Hemoglobin is 8.4. Stable for last 2 to 3 days. 01/23: Hemoglobin 8.1. Patient on ferrous sulfate and vitamin C. #Depression -Continue Zoloft #GERD -Continue PPI #Hypertension -Continue blood pressure medications and adjust as tolerated #DVT ppx: Changed to low-dose Eliquis. Charges/Coding Visit Charges Inpatient E&M: 13930 Subs Hosp L2
--- NOTE | 2023-01-23 12:57 | CASEMGMT ---
Social Work SW attempted to meet w/pt a couple of times, as [facility]. SW then did wake pt this afternoon. SW explained [facility] is full and cannot take her. SW reviewed the SNF list again w/pt, she would like a referral to [facility]. SW let the d/c cyber intel planner know, she will send referral. LARRY Palacios
--- NOTE | 2023-01-23 13:00 | CASEMGMT ---
Discharge Planning Ref[facility] Elenita Peoples, Discharge Planning Asst.
--- NOTE | 2023-01-23 14:05 | CASEMGMT ---
Discharge Planning Patient has been declined by [facility]. SW updated. Elenita Peoples, Discharge Planning Asst.
[2023-01-23] MEDS: oxyCODONE 5 MG Tablet PO ×2 (14:12→21:16)
--- NOTE | 2023-01-23 14:31 | CHAPLAIN ---
Type of Pastoral Visit _x__ Initial Visit ___ Follow-up Visit ___ On-call Visit ___ General Patient Visit ___ Spiritual Assessment ___ Family Conference ___ Bereavement ___ Rapid Response ___ Code Blue ___ Other (describe below) Pastoral Care Referral From _x__ Patient ___ Family ___ Nurse ___ Physician ___ Hair Spinner ___ Lot Attendant ___ Other (describe below) Sacrament/Intervention _x__ Active listening ___ Anointing ___ Methodist ___ Bereavement ___ Communion ___ Isi exploration ___ ___ Life review ___ Prayer ___ Reconciliation ___ Sacrament of Sick ___ Supportive presence ___ Wedding ___ Other (describe below) Pastoral Comments patient is in bed but awake; pt states that she keeps getting interrupted by hospital people; pt states that she just wants to sleep; after a couple of clarifcation questions and another offer of support or help, the patient states that she would just refer sleep now
[2023-01-23] MEDS: Ascorbic Acid 500 MG Tablet PO ×2 (14:52→16:54)
[2023-01-23 15:26] VITALS: BP 146/81; PULSE 102; RESP 18; TEMP 37; O2SAT 100
[2023-01-23] MEDS: Bisacodyl 5 MG Tablet 10 MG PO (16:54)
--- NOTE | 2023-01-23 16:56 | CASEMGMT ---
Addendum entered by Kirsten Fournier 01/23/23 17:03: Social Work [facility] LARRY Palacios Original Note: Social Work [facility] cannot take pt. SW spoke w/pt, let her know and asked her to review the list again. She would be agreeable to [facility], as they also do dialysis on site. SW had called earlier but they did not call back in regard to if they are in network. DINO will follow up Thursday in regard to this. LARRY Palacios
[2023-01-23 16:58] LABS: Bedside Glucose 168 mg/dL (74-106)
[2023-01-23] MEDS: Ondansetron 4 MG/2 ML Vial IV (19:45)
[2023-01-23] MEDS: 0.9% Saline Lock 10 ML Syringe IV (19:46)
[2023-01-23] MEDS: Sertraline 50 MG Tablet PO (21:05)
[2023-01-23] MEDS: Atorvastatin Calcium 40 MG Tablet PO (21:05)
[2023-01-23] MEDS: Amitriptyline 100 MG Tablet PO (21:05)
[2023-01-23] MEDS: Sodium Bicarbonate 650 MG Tablet PO (21:06)
[2023-01-23] MEDS: MELATONIN 10 MG TABLET 5 MG PO (21:12)
[2023-01-23 21:30] VITALS: BP 148/66; PULSE 105; RESP 16; TEMP 36.8; O2SAT 95
[2023-01-23 23:20] LABS: Bedside Glucose 170 mg/dL (74-106)
[2023-01-24] VITALS (13 sets, daily range): BP systolic 113–298; BP diastolic 43–73; PULSE 94–101; RESP 14–16; TEMP 36.6–37.3; O2SAT 94–104; BMI 35.2; BMI 34.5
[2023-01-24] MEDS: Acetaminophen 500 MG Tablet 1000 MG PO ×3 (05:55→20:00)
[2023-01-24 06:22] LABS: Absolute Lymphocyte Count 2.08 X10^3/uL (0.83-4.51); Basophil# 0.02 X10^3/uL; Basophil% 0.2 % (0-1); Eosinophil# 0.25 X10^3/uL; Eosinophils% 3.1 % (0-5); Hematocrit 25.6 % (37-47); Hemoglobin 7.8 g/dL (12.0-15.0); Lymphocyte # 2.08 X10^3/ul (0.83-4.51); Lymphocyte % 25.5 % (19-41); Mean Corp Hgb Conc 30.5 g/dL (32-36); Mean Corpuscular Hgb 29.7 pg (27.0-32.0); Mean Corpuscular Volume 97.3 fL (81-99); Mean Platelet Vol. 9.1 fl (6.2-12.0); Monocyte# 0.79 X10^3/uL; Monocyte% 9.7 % (0-10); NRBC Flagged by Analyzer 0 % (0-5); Neutrophil % 61.1 % (47-70); Platelet Count 190 K/mm3 (150-450); RBC Distribution Width SD 49.7 fl (35.1-43.9); Red Blood Count 2.63 M/mm3 (4.2-5.4); White Blood Count 8.2 K/mm3 (4.4-11.0)
[2023-01-24 06:36] LABS: Bedside Glucose 123 mg/dL (74-106)
[2023-01-24 06:45] LABS: Anion Gap 8 (5-15); BUN 60 mg/dL (7-18); BUN/Creat Ratio 10.8 RATIO (10-20); Calcium,Total 8.4 mg/dL (8.5-10.1); Chloride 101 mmol/L (98-107); Creatinine, Serum 5.58 mg/dL (0.55-1.02); EST Glomerular Filtration Rate 8 mL/min (>60); Est Glom Filt Rate - Afr Amer 10 mL/min (>60); Estimated Creatinine Clearance 11.22 ml/min; Glucose 133 mg/dL (74-106); Sodium Level 135 mmol/L (136-145)
[2023-01-24] MEDS: 0.9% Normal Saline 1,000 ML IV.SOLN. 1000 ML OPERA.SITE (07:43)
[2023-01-24] MEDS: PureFlow B 2K Dialysis Soln 1 BAG 6 BAG PF (07:43)
[2023-01-24] MEDS: Epoetin Alfa epbx 10,000 UNITS/ML 10000 UNIT IV (08:28)
[2023-01-24] MEDS: oxyCODONE 5 MG Tablet PO (08:32)
--- NOTE | 2023-01-24 09:12 | PCM.PN.REN ---
Subjective Subjective Following for ESRD. Patient seen during hemodialysis treatment. She denies chest pain or shortness of breath. Objective Data Objective Data Vital Signs: Vital Signs Temp Pulse Resp BP Pulse Ox O2 Del Method O2 Flow Rate 97.9 F 96 14 122/58 H 98 Room Air 2 01/24/23 05:53 01/24/23 09:09 01/24/23 09:09 01/24/23 09:09 01/24/23 07:17 01/24/23 09:09 01/22/23 08:13 Oxygen Flow Rate (L/min) 2 Oxygen Delivery Method Room Air Weight: 105.2 kg Body Mass Index (BMI) 35.2 Intake & Output: Intake and Output for Last 24 Hours 01/22/23 01/23/23 01/24/23 23:59 23:59 23:59 Intake Total 1220 / 1220 1100 / 1100 Output Total 200 / 200 Balance 1020 / 1020 1100 / 1100 Lab / Micro Data 01/24/23 06:09 01/24/23 06:09 Labs: Laboratory Results - last 24 hr 01/23/23 11:27: POC Glucose 249 H 01/23/23 16:37: POC Glucose 168 H 01/23/23 20:58: POC Glucose 170 H 01/24/23 06:00: POC Glucose 123 H 01/24/23 06:09: WBC 8.2, RBC 2.63 L, Hgb 7.8 L, Hct 25.6 L, MCV 97.3, MCH 29.7, MCHC 30.5 L, RDW Std Deviation 49.7 H, RDW Coeff of Ben 14.0, Plt Count 190, MPV 9.1, Immature Gran % (Auto) 0.400, Neut % (Auto) 61.1, Lymph % (Auto) 25.5, [place] % (Auto) 9.7, Eos % (Auto) 3.1, Baso % (Auto) 0.2, Absolute Neuts (auto) 5.0, Absolute Lymphs (auto) 2.08, Nucleated RBC % 0, Sodium 135 L, Potassium 5.0, Chloride 101, Carbon Dioxide 26.0, Anion Gap 8, BUN 60 H, Creatinine 5.58 H, Estim Creat Clear Calc 11.22, Est GFR (MDRD) Af Amer 10 L, Est GFR (MDRD) Non-Af 8 L, BUN/Creatinine Ratio 10.8, Glucose 133 H, Calcium 8.4 L Physical Exam Narrative Alert awake oriented x 3 no obvious distress no pallor no icterus no JVD s1s2 no murmurs lungs clear abdomen soft no organomegaly no edema no cyanosis Assessment & Plan Assessment/Plan (1) ESRD (end stage renal disease) on dialysis: (2) Hyperkalemia: (3) Secondary hyperparathyroidism: (4) Anemia: QUALIFIERS: Anemia type: due to chronic kidney disease (5) Benign essential hypertension: PLAN: Plan Impression/Plan: The patient is a 57-year-old woman with past history of type 2 diabetes mellitus, hypertension, ESRD, osteoporosis, and hyperlipidemia. The patient presented to the hospital on 01/19/2023 after ground-level fall. She was found to have right tibial fracture and is status post right intramedullary tibial nail on 01/21/2023. Nephrology is following for ESRD and dialysis management. ESRD. The patient usually dialyzes on TTS schedule at [facility]. Dr. Hill is her primary roof truss builder. The patient is on on Thursday, Thursday, and Thursday dialysis schedule this week because of holiday. The patient seen during hemodialysis today. She is back on her usual TTS schedule. We are dialyzing her with 2K dialysate today. We will try to take off 2 L with ultrafiltration. So far, the patient is tolerating dialysis. Hyperkalemia. Potassium level was 6.0 mmol/L morning of 01/22/2023. Potassium level did improve with insulin?D50. We will use 2K dialysate today. Recheck serum potassium again tomorrow. Anemia in chronic kidney disease. Will continue JENISE with dialysis. Will give her 10,000 of Retacrit today. Secondary hyperparathyroidism. PTH has been in target range at dialysis unit. Continue calcitriol. Check calcium/phosphorus under control. There is no need for phosphorus binder. Recheck calcium/phosphorus next week.
--- NOTE | 2023-01-24 12:09 | CASEMGMT ---
Social Work SW did see that [facility] is listed as in network w/pt's insurance. SW sent referral via [facility] yesterday, no response as of yet. SW spoke w/pt, let her know that [facility] does take her insurance, so we will see on Thursday if they can take pt. Pt also would be interested in [facility], however it does not appear they take insurance. SW will follow up on Thursday regarding referral. LARRY Palacios
--- NOTE | 2023-01-24 12:18 | PN.HOSP_ITS ---
Reason for Visit Reason for Visit: Diagnoses Anemia, unspecified (01/19/23) Type 2 diabetes mellitus without complications (01/19/23) Hyperkalemia (01/19/23) Depression, unspecified (01/19/23) Anxiety disorder, unspecified (01/19/23) Essential (primary) hypertension (01/19/23) Unilateral primary osteoarthritis, right knee (01/19/23) Pathological fracture, right tibia, initial encounter for fracture (01/19/23) End stage renal disease (01/19/23) Secondary hyperparathyroidism of renal origin (01/19/23) Difficulty in walking, not elsewhere classified (01/19/23) Unspecified fracture of shaft of right fibula, initial encounter for closed fracture (01/19/23) Unspecified fracture of right lower leg, initial encounter for closed fracture (01/19/23) Personal history of other mental and behavioral disorders (01/19/23) Personal history of other diseases of the respiratory system (01/19/23) Personal history of nicotine dependence (01/19/23) Dependence on renal dialysis (01/19/23) Objective Data Objective Data Vital Signs: Vital Signs Temp Pulse Resp BP Pulse Ox O2 Del Method O2 Flow Rate 97.9 F 97 14 135/54 H 99 Room Air 2 01/24/23 05:53 01/24/23 10:56 01/24/23 10:56 01/24/23 10:56 01/24/23 10:56 01/24/23 10:56 01/22/23 08:13 Oxygen Flow Rate (L/min) 2 Oxygen Delivery Method Room Air Weight: 227 lb 1.218 oz Body Mass Index (BMI) 34.5 Intake & Output: Intake and Output for Last 24 Hours 01/22/23 01/23/23 01/24/23 23:59 23:59 23:59 Intake Total 1220 / 1220 1100 / 1100 Output Total 200 / 200 1700 / 1700 Balance 1020 / 1020 1100 / 1100 -1700 / -1700 Lab / Micro Data 01/24/23 06:09 01/24/23 06:09 Labs: Laboratory Results - last 24 hr 01/23/23 16:37: POC Glucose 168 H 01/23/23 20:58: POC Glucose 170 H 01/24/23 06:00: POC Glucose 123 H 01/24/23 06:09: WBC 8.2, RBC 2.63 L, Hgb 7.8 L, Hct 25.6 L, MCV 97.3, MCH 29.7, MCHC 30.5 L, RDW Std Deviation 49.7 H, RDW Coeff of Ben 14.0, Plt Count 190, MPV 9.1, Immature Gran % (Auto) 0.400, Neut % (Auto) 61.1, Lymph % (Auto) 25.5, [place] % (Auto) 9.7, Eos % (Auto) 3.1, Baso % (Auto) 0.2, Absolute Neuts (auto) 5.0, Absolute Lymphs (auto) 2.08, Nucleated RBC % 0, Sodium 135 L, Potassium 5.0, Chloride 101, Carbon Dioxide 26.0, Anion Gap 8, BUN 60 H, Creatinine 5.58 H, Estim Creat Clear Calc 11.22, Est GFR (MDRD) Af Amer 10 L, Est GFR (MDRD) Non-Af 8 L, BUN/Creatinine Ratio 10.8, Glucose 133 H, Calcium 8.4 L Physical Exam Narrative Seen and examined. Patient does not have chest pain or shortness of breath or dizziness. Mild abdominal discomfort probably from constipation. Patient having little bit bowel movement. Patient had little bowel movement yesterday on multiple stool softeners. She states her bowel movement is not sufficient and adequate. Discussed with the software configuration specialist and orthopedic surgeon. Physical exam: General: Alert, Oriented x3, Cooperative HEENT: Atraumatic, PERRLA, EOMI, Normocephalic Oral: Oral mucosa dry. No Gingival or Mucosal Lesions/ Ulcerations Neck: Supple, No JVD, Negative Carotid Bruits Lungs: Air entry diminished in bilateral lung bases. No crepitation/rhonchi Cardiovascular: Heart rate in low 100s., Normal S1, Normal S2, No murmurs Abdomen: Bowel Sounds Present, Soft, Non Tender, Non-Distended : No renal angle tenderness. No suprapubic tenderness. Extremities: No edema, Capillary Refill Less than 3 Seconds Skin: No rashes, No breakdown Musculoskeletal: Mild tenderness on the right tibia-fibula. Dressing is dry and intact. Ronald wrap bandage on. ROM not attempted. Neurological: Cranial nerves II-XII grossly intact, DTR 2+/4. No acute focal neurological deficit. Psych/Mental Status: Flat affect. Assessment & Plan Assessment/Plan (1) Fracture of right lower extremity: QUALIFIERS: Encounter type: initial encounter Fracture type: closed Qualified Code(s): S82.91XA - Unspecified fracture of right lower leg, initial encounter for closed fracture (2) History of COPD: (3) ESRD (end stage renal disease) on dialysis: PLAN: Plan 57-year-old female was brought to ED by EMS for fall on her buttocks and her leg was tucked under her. She complains of severe pain from hip to the tip of the toes, denies numbness or tingling. CT scan of right lower extremity showed complete fracture through proximal tibia and fibular metadiaphysis with soft tissue edema. 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 On hydromorphone because of end-stage renal disease. Right lower leg splinted in ED. pending surgery consulted for surgical opinion. PT and OT on board. 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 Patient serum calcium is 8.6, phosphorus 5.9, magnesium 2.1. Vitamin D 25 and phosphorus are 83.2 and 5.4 respectively. PTH high 433. Vitamin B12 543. Discussed with the software configuration specialist. She started dialysis about 1 year ago her phosphate and PTH is not very high to warrant or indication of treatment. Bicarb is 26 and patient on sodium bicarbonate. As per software configuration specialist, phosphorus above 600 might need treatment. 01/22: Patient had right suprapatellar intramedullary tibial nail. Found to have right pathological transverse proximal tibia extra-articular fracture. 01/23: With high risk of DVT, patient is started on low-dose Eliquis 2.5 mg, earlier she was on baby aspirin 81 mg twice daily which is discontinued. DC heparin subcu for DVT prophylaxis. Patient also has chronic constipation problem and on senna S, MiraLAX, psyllium. Patient has she did not feel like good emptying of bowel therefore Dulcolax 10 mg oral 1 dose added. 01/24: Dulcolax 10 mg 1 oral dose. #End-stage renal disease on dialysis Thursday, , Saturday: Alteration Manager consulted. -Potassium very slightly elevated at 5.3, repeat potassium 5.4. Patient undergoing hemodialysis. No shortness of breath or hypoxia. 01/22: Hyperkalemia K6.0. No signs of acute hyperkalemia like tenting of T waves or widened QRS complex/sine waves on EKG. Kayexalate given. Discussed with nursing staff to inform software configuration specialist that patient might need dialysis. She had only 2.5 hours of dialysis yesterday. 01/23: Patient is still urinates about 500 mL. Potassium is normal after hyperkalemia cocktail and Kayexalate yesterday. No need for hemodialysis. Discussed with the software configuration specialist. 01/24: Electrolytes are in acceptable range. K5.0. #Type 2 diabetes mellitus: Glucose in BMP is 81. Serum magnesium 2.1. -Glucose checks and sliding scale insulin -Holding glipizide and Trulicity 01/23 glucose 249. Will start long-acting insulin. 01/24 glucose better controlled. Chronic COPD Albuterol as needed not in exacerbation. #Chronic anemia, secondary to ESRD/chronic disease -Appears to be at baseline -01/21: Reticulocyte panel and iron work-up ordered. Patient on ferrous sulfate 325 mg daily. Serum iron low, ferritin high 307. Iron saturation 8.2% low. Reticulocyte count, immature reticulocyte fraction normal. Overall, iron profile is suggestive of anemia of chronic disease/renal disease. We will change her ferrous sulfate to every other day. 01/22: Hemoglobin is 8.4. Stable for last 2 to 3 days. 01/23: Hemoglobin 8.1. Patient on ferrous sulfate and vitamin C. 01/24: Hemoglobin 7.8/25%. Platelet count 190,000. Only on Eliquis 2.5 mg twice daily as DVT prophylaxis patient but baby aspirin is already discontinued. Patient had epoetin geo 10,000 units yesterday #Depression -Continue Zoloft #GERD -Continue PPI #Hypertension -Continue blood pressure medications and adjust as tolerated #DVT ppx: Changed to low-dose Eliquis. Charges/Coding Visit Charges Inpatient E&M: 21060 Subs Hosp L2
[2023-01-24] MEDS: Psyllium 1 PACKET PO ×2 (12:42→19:58)
[2023-01-24] MEDS: Polyethylene Glycol 3350 17 GM PACKET PO ×2 (12:42→19:58)
[2023-01-24] MEDS: Pantoprazole Sodium 20 MG Tablet PO (12:43)
[2023-01-24] MEDS: APIXABAN 2.5 MG TABLET (WCH) PO ×2 (12:43→19:59)
[2023-01-24] MEDS: Senna/Docusate Sodium 1 Tablet 2 TABLET PO ×2 (12:44→19:59)
[2023-01-24] MEDS: Calcitriol 0.25 MCG Capsule PO ×2 (12:44→19:59)
[2023-01-24] MEDS: Menthol/Lanolin/Calamine/Znox 113 GM Tube 1 APPLIC TOPICAL ×2 (12:45→19:57)
[2023-01-24] MEDS: Ascorbic Acid 500 MG Tablet PO ×2 (12:46→17:18)
[2023-01-24] MEDS: Labetalol 100 MG Tablet 50 MG PO ×2 (12:50→19:58)
[2023-01-24] MEDS: Cholecalciferol (Vit D3) 125 MCG CAPSULE (5,000 UNITS) PO (12:52)
[2023-01-24] MEDS: Bisacodyl 5 MG Tablet 10 MG PO (12:59)
[2023-01-24] MEDS: Bisacodyl 10 MG Suppository RC (13:00)
[2023-01-24] MEDS: Ensure Surgery 237 ML LIQUID PO (13:00)
[2023-01-24] MEDS: Insulin Lispro 100 UNIT/ML INSULN.PEN SC ×3 (13:05→19:57)
[2023-01-24 13:26] LABS: Bedside Glucose 181 mg/dL (74-106)
[2023-01-24 17:38] LABS: Bedside Glucose 184 mg/dL (74-106)
[2023-01-24] MEDS: 0.9% Saline Lock 10 ML Syringe IV (19:57)
[2023-01-24] MEDS: Atorvastatin Calcium 40 MG Tablet PO (19:58)
[2023-01-24] MEDS: MELATONIN 10 MG TABLET 5 MG PO (19:59)
[2023-01-24] MEDS: Sertraline 50 MG Tablet PO (19:59)
[2023-01-24] MEDS: Amitriptyline 100 MG Tablet PO (20:00)
[2023-01-24] MEDS: oxyCODONE 5 MG Tablet 2.5 MG PO (20:01)
[2023-01-24] MEDS: Sodium Bicarbonate 650 MG Tablet PO (20:02)
[2023-01-24 22:12] LABS: Bedside Glucose 198 mg/dL (74-106)
[2023-01-25 01:30] VITALS: BP 127/50; PULSE 90; RESP 18; TEMP 36.6; O2SAT 99
[2023-01-25] MEDS: oxyCODONE 5 MG Tablet 2.5 MG PO ×2 (01:30→20:17)
[2023-01-25 06:00] VITALS: BMI 33.6
[2023-01-25 06:26] VITALS: BP 132/66; PULSE 96; RESP 18; TEMP 36.9; O2SAT 95
[2023-01-25] MEDS: Acetaminophen 500 MG Tablet 1000 MG PO ×3 (06:32→20:18)
[2023-01-25 06:45] LABS: Absolute Neutrophil Count 5.7 X10^3/uL (2.0-7.7); Basophil# 0.02 X10^3/uL; Basophil% 0.2 % (0-1); Eosinophil# 0.23 X10^3/uL; Eosinophils% 2.7 % (0-5); Hematocrit 24.1 % (37-47); Hemoglobin 7.5 g/dL (12.0-15.0); Mean Corp Hgb Conc 31.1 g/dL (32-36); Mean Corpuscular Hgb 30.7 pg (27.0-32.0); Mean Corpuscular Volume 98.8 fL (81-99); Monocyte# 0.81 X10^3/uL; Monocyte% 9.5 % (0-10); NRBC Flagged by Analyzer 0 % (0-5); Neutrophil % 67.2 % (47-70); Platelet Count 217 K/mm3 (150-450); RBC Distribution Width SD 50.6 fl (35.1-43.9); Red Blood Count 2.44 M/mm3 (4.2-5.4); White Blood Count 8.5 K/mm3 (4.4-11.0)
[2023-01-25 06:52] LABS: Bedside Glucose 132 mg/dL (74-106)
[2023-01-25 07:04] LABS: Anion Gap 7 (5-15); BUN 47 mg/dL (7-18); Calcium,Total 8.4 mg/dL (8.5-10.1); Chloride 100 mmol/L (98-107); EST Glomerular Filtration Rate 10 mL/min (>60); Est Glom Filt Rate - Afr Amer 12 mL/min (>60); Estimated Creatinine Clearance 13.32 ml/min; Glucose 125 mg/dL (74-106); Potassium 4.6 mmol/L (3.5-5.1); Sodium Level 134 mmol/L (136-145)
--- NOTE | 2023-01-25 08:15 | PCM.PN.REN ---
Subjective Subjective Following for ESRD. The patient tolerated dialysis well yesterday. She denies current chest pain, shortness of breath, or nausea. Objective Data Objective Data Vital Signs: Vital Signs Temp Pulse Resp BP Pulse Ox O2 Del Method O2 Flow Rate 98.5 F 96 18 132/66 H 95 Room Air 2 01/25/23 06:26 01/25/23 06:26 01/25/23 06:26 01/25/23 06:26 01/25/23 06:26 01/25/23 06:26 01/22/23 08:13 Oxygen Flow Rate (L/min) 2 Oxygen Delivery Method Room Air Weight: 100.4 kg Body Mass Index (BMI) 33.6 Intake & Output: Intake and Output for Last 24 Hours 01/23/23 01/24/23 01/25/23 23:59 23:59 23:59 Intake Total 1100 / 1100 975 / 975 Output Total 1700 / 1700 150 / 150 Balance 1100 / 1100 -725 / -725 -150 / -150 Lab / Micro Data 01/25/23 06:30 01/25/23 06:30 Labs: Laboratory Results - last 24 hr 01/24/23 13:03: POC Glucose 181 H 01/24/23 17:15: POC Glucose 184 H 01/24/23 19:44: POC Glucose 198 H 01/25/23 06:30: WBC 8.5, RBC 2.44 L, Hgb 7.5 L, Hct 24.1 L, MCV 98.8, MCH 30.7, MCHC 31.1 L, RDW Std Deviation 50.6 H, RDW Coeff of Ben 14.0, Plt Count 217, MPV 9.0, Immature Gran % (Auto) 0.400, Neut % (Auto) 67.2, Lymph % (Auto) 20.0, [place] % (Auto) 9.5, Eos % (Auto) 2.7, Baso % (Auto) 0.2, Absolute Neuts (auto) 5.7, Absolute Lymphs (auto) 1.70, Nucleated RBC % 0, Sodium 134 L, Potassium 4.6, Chloride 100, Carbon Dioxide 27.0, Anion Gap 7, BUN 47 H, Creatinine 4.70 H, Estim Creat Clear Calc 13.32, Est GFR (MDRD) Af Amer 12 L, Est GFR (MDRD) Non-Af 10 L, BUN/Creatinine Ratio 10.0, Glucose 125 H, Calcium 8.4 L 01/25/23 06:32: POC Glucose 132 H Physical Exam Narrative Alert awake oriented x 3 no obvious distress no pallor no icterus no JVD s1s2 no murmurs lungs clear abdomen soft no organomegaly no edema no cyanosis Assessment & Plan Assessment/Plan (1) ESRD (end stage renal disease) on dialysis: (2) Hyperkalemia: (3) Secondary hyperparathyroidism: (4) Anemia: QUALIFIERS: Anemia type: due to chronic kidney disease (5) Benign essential hypertension: PLAN: Plan Impression/Plan: The patient is a 57-year-old woman with past history of type 2 diabetes mellitus, hypertension, ESRD, osteoporosis, and hyperlipidemia. The patient presented to the hospital on 01/19/2023 after ground-level fall. She was found to have right tibial fracture and is status post right intramedullary tibial nail on 01/21/2023. Nephrology is following for ESRD and dialysis management. ESRD. The patient usually dialyzes on TTS schedule at [facility]. Dr. Hill is her primary cath lab nurse. The patient is on on Thursday, Thursday, and Thursday dialysis schedule this week because of holiday. The patient seen during hemodialysis yesterday. She is back on her usual TTS schedule. There is no need for dialysis today. Next dialysis is scheduled for 01/27/2023. Hyperkalemia. Potassium level was 6.0 mmol/L morning of 01/22/2023. Potassium level did improve with insulin?D50 on 01/22/2023. We will use 2K dialysate today. Potassium level is better at 4.6 mmol/L today. Anemia in chronic kidney disease. Will continue JENISE with dialysis. Will give her 10,000 of Retacrit on 01/24/2023. We will monitor hemoglobin. Secondary hyperparathyroidism. PTH has been in target range at dialysis unit. Continue calcitriol. Calcium/phosphorus under control. There is no need for phosphorus binder. Recheck calcium/phosphorus next week.
[2023-01-25] MEDS: Polyethylene Glycol 3350 17 GM PACKET PO (08:16)
[2023-01-25] MEDS: Psyllium 1 PACKET PO (08:16)
[2023-01-25] MEDS: APIXABAN 2.5 MG TABLET (WCH) PO ×2 (08:16→20:19)
[2023-01-25] MEDS: Calcitriol 0.25 MCG Capsule PO ×2 (08:16→20:19)
[2023-01-25] MEDS: Ferrous Sulfate 325 MG Tablet PO (08:16)
[2023-01-25] MEDS: Ascorbic Acid 500 MG Tablet PO ×2 (08:16→17:02)
[2023-01-25] MEDS: Pantoprazole Sodium 20 MG Tablet PO (08:16)
[2023-01-25] MEDS: Labetalol 100 MG Tablet 50 MG PO ×2 (08:17→20:18)
[2023-01-25] MEDS: Cholecalciferol (Vit D3) 125 MCG CAPSULE (5,000 UNITS) PO (08:19)
[2023-01-25] MEDS: Senna/Docusate Sodium 1 Tablet 2 TABLET PO (08:19)
--- NOTE | 2023-01-25 09:29 | PN.HOSP_ITS ---
Reason for Visit Reason for Visit: Diagnoses Anemia, unspecified (01/19/23) Type 2 diabetes mellitus without complications (01/19/23) Hyperkalemia (01/19/23) Depression, unspecified (01/19/23) Anxiety disorder, unspecified (01/19/23) Essential (primary) hypertension (01/19/23) Unilateral primary osteoarthritis, right knee (01/19/23) Pathological fracture, right tibia, initial encounter for fracture (01/19/23) End stage renal disease (01/19/23) Secondary hyperparathyroidism of renal origin (01/19/23) Difficulty in walking, not elsewhere classified (01/19/23) Unspecified fracture of shaft of right fibula, initial encounter for closed fracture (01/19/23) Unspecified fracture of right lower leg, initial encounter for closed fracture (01/19/23) Personal history of other mental and behavioral disorders (01/19/23) Personal history of other diseases of the respiratory system (01/19/23) Personal history of nicotine dependence (01/19/23) Dependence on renal dialysis (01/19/23) Objective Data Objective Data Vital Signs: Vital Signs Temp Pulse Resp BP Pulse Ox O2 Del Method O2 Flow Rate 98.5 F 96 18 132/66 H 95 Room Air 2 01/25/23 06:26 01/25/23 06:26 01/25/23 06:26 01/25/23 06:26 01/25/23 06:26 01/25/23 08:15 01/22/23 08:13 Oxygen Flow Rate (L/min) 2 Oxygen Delivery Method Room Air Weight: 221 lb 5.506 oz Body Mass Index (BMI) 33.6 Intake & Output: Intake and Output for Last 24 Hours 01/23/23 01/24/23 01/25/23 23:59 23:59 23:59 Intake Total 1100 / 1100 975 / 975 Output Total 1700 / 1700 150 / 150 Balance 1100 / 1100 -725 / -725 -150 / -150 Lab / Micro Data 01/25/23 06:30 01/25/23 06:30 Labs: Laboratory Results - last 24 hr 01/24/23 13:03: POC Glucose 181 H 01/24/23 17:15: POC Glucose 184 H 01/24/23 19:44: POC Glucose 198 H 01/25/23 06:30: WBC 8.5, RBC 2.44 L, Hgb 7.5 L, Hct 24.1 L, MCV 98.8, MCH 30.7, MCHC 31.1 L, RDW Std Deviation 50.6 H, RDW Coeff of Ben 14.0, Plt Count 217, MPV 9.0, Immature Gran % (Auto) 0.400, Neut % (Auto) 67.2, Lymph % (Auto) 20.0, [place] % (Auto) 9.5, Eos % (Auto) 2.7, Baso % (Auto) 0.2, Absolute Neuts (auto) 5.7, Absolute Lymphs (auto) 1.70, Nucleated RBC % 0, Sodium 134 L, Potassium 4.6, Chloride 100, Carbon Dioxide 27.0, Anion Gap 7, BUN 47 H, Creatinine 4.70 H, Estim Creat Clear Calc 13.32, Est GFR (MDRD) Af Amer 12 L, Est GFR (MDRD) Non-Af 10 L, BUN/Creatinine Ratio 10.0, Glucose 125 H, Calcium 8.4 L 01/25/23 06:32: POC Glucose 132 H Physical Exam Narrative Seen and examined. Patient does not have chest pain or shortness of breath or dizziness. She had good bowel movement yesterday. Continue stool softeners. Discussed with the horizontal boring mill set up operator. Physical exam: General: Alert, Oriented x3, Cooperative HEENT: Atraumatic, PERRLA, EOMI, Normocephalic Oral: Oral mucosa dry. No Gingival or Mucosal Lesions/ Ulcerations Neck: Supple, No JVD, Negative Carotid Bruits Lungs: Air entry diminished in bilateral lung bases. No crepitation/rhonchi Cardiovascular: Heart rate in low 100s., Normal S1, Normal S2, No murmurs Abdomen: Bowel Sounds Present, Soft, Non Tender, Non-Distended : No renal angle tenderness. No suprapubic tenderness. Extremities: No edema, Capillary Refill Less than 3 Seconds Skin: No rashes, No breakdown Musculoskeletal: Mild tenderness on the right tibia-fibula. Dressing is dry and intact. Ronald wrap bandage on. ROM not attempted. Neurological: Cranial nerves II-XII grossly intact, DTR 2+/4. No acute focal neurological deficit. Psych/Mental Status: Flat affect. Assessment & Plan Assessment/Plan (1) Fracture of right lower extremity: QUALIFIERS: Encounter type: initial encounter Fracture type: closed Qualified Code(s): S82.91XA - Unspecified fracture of right lower leg, initial encounter for closed fracture (2) History of COPD: (3) ESRD (end stage renal disease) on dialysis: PLAN: Plan 57-year-old female was brought to ED by EMS for fall on her buttocks and her leg was tucked under her. She complains of severe pain from hip to the tip of the toes, denies numbness or tingling. CT scan of right lower extremity showed complete fracture through proximal tibia and fibular metadiaphysis with soft tissue edema. 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 On hydromorphone because of end-stage renal disease. Right lower leg splinted in ED. pending surgery consulted for surgical opinion. PT and OT on board. 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 Patient serum calcium is 8.6, phosphorus 5.9, magnesium 2.1. Vitamin D 25 and phosphorus are 83.2 and 5.4 respectively. PTH high 433. Vitamin B12 543. Discussed with the horizontal boring mill set up operator. She started dialysis about 1 year ago her phosphate and PTH is not very high to warrant or indication of treatment. Bicarb is 26 and patient on sodium bicarbonate. As per horizontal boring mill set up operator, phosphorus above 600 might need treatment. 01/22: Patient had right suprapatellar intramedullary tibial nail. Found to have right pathological transverse proximal tibia extra-articular fracture. 01/23: With high risk of DVT, patient is started on low-dose Eliquis 2.5 mg, earlier she was on baby aspirin 81 mg twice daily which is discontinued. [facility] for DVT prophylaxis. Patient also has chronic constipation problem and on senna S, MiraLAX, psyllium. Patient has she did not feel like good emptying of bowel therefore Dulcolax 10 mg oral 1 dose added. 01/24: Dulcolax 10 mg 1 oral dose. 01/25: Patient bowel movement is good. Continue oral softeners and Dulcolax suppository. Plan for plan for SNF. Pre-CERT pending. #End-stage renal disease on dialysis Thursday, , Thursday: Clinical Nurse Specialist consulted. -Potassium very slightly elevated at 5.3, repeat potassium 5.4. Patient undergoing hemodialysis. No shortness of breath or hypoxia. 01/22: Hyperkalemia K6.0. No signs of acute hyperkalemia like tenting of T waves or widened QRS complex/sine waves on EKG. Kayexalate given. Discussed with nursing staff to inform horizontal boring mill set up operator that patient might need dialysis. She had only 2.5 hours of dialysis yesterday. 01/23: Patient is still urinates about 500 mL. Potassium is normal after hyperkalemia cocktail and Kayexalate yesterday. No need for hemodialysis. Discussed with the horizontal boring mill set up operator. 01/24: Electrolytes are in acceptable range. K5.0. #Type 2 diabetes mellitus: Glucose in BMP is 81. Serum magnesium 2.1. -Glucose checks and sliding scale insulin -Holding glipizide and Trulicity 01/23 glucose 249. Will start long-acting insulin. 01/24 glucose better controlled. 01/25: A1c 5.8% glucose 125. Good control. Chronic COPD Albuterol as needed not in exacerbation. #Chronic anemia, secondary to ESRD/chronic disease -Appears to be at baseline -01/21: Reticulocyte panel and iron work-up ordered. Patient on ferrous sulfate 325 mg daily. Serum iron low, ferritin high 307. Iron saturation 8.2% low. Reticulocyte count, immature reticulocyte fraction normal. Overall, iron profile is suggestive of anemia of chronic disease/renal disease. We will change her ferrous sulfate to every other day. 01/22: Hemoglobin is 8.4. Stable for last 2 to 3 days. 01/23: Hemoglobin 8.1. Patient on ferrous sulfate and vitamin C. 01/24: Hemoglobin 7.8/25%. Platelet count 190,000. Only on Eliquis 2.5 mg twice daily as DVT prophylaxis patient but baby aspirin is already discontinued. Patient had epoetin geo 10,000 units yesterday #Depression -Continue Zoloft #GERD -Continue PPI #Hypertension -Continue blood pressure medications and adjust as tolerated #DVT ppx: Changed to low-dose Eliquis. Charges/Coding Visit Charges Inpatient E&M: 53164 Subs Hosp L2
[2023-01-25] MEDS: Bisacodyl 10 MG Suppository RC (10:10)
[2023-01-25] MEDS: Menthol/Lanolin/Calamine/Znox 113 GM Tube 1 APPLIC TOPICAL (10:10)
[2023-01-25 12:17] LABS: Bedside Glucose 158 mg/dL (74-106)
[2023-01-25 13:45] VITALS: BP 153/67; PULSE 98; RESP 14; TEMP 36.9; O2SAT 95
[2023-01-25] MEDS: Insulin Lispro 100 UNIT/ML INSULN.PEN SC ×2 (17:02→20:17)
[2023-01-25 17:26] LABS: Bedside Glucose 172 mg/dL (74-106)
[2023-01-25 18:18] VITALS: BP 152/71; PULSE 100; RESP 16; TEMP 36.8; O2SAT 98
[2023-01-25] MEDS: MELATONIN 10 MG TABLET 5 MG PO (20:18)
[2023-01-25] MEDS: Sodium Bicarbonate 650 MG Tablet PO (20:19)
[2023-01-25] MEDS: Atorvastatin Calcium 40 MG Tablet PO (20:19)
[2023-01-25] MEDS: Sertraline 50 MG Tablet PO (20:19)
[2023-01-25] MEDS: Amitriptyline 100 MG Tablet PO (20:19)
[2023-01-25 20:20] VITALS: BP 176/87; PULSE 100; RESP 18; TEMP 36.9; O2SAT 98
[2023-01-25 21:55] LABS: Bedside Glucose 167 mg/dL (74-106)
[2023-01-25 23:38] VITALS: BP 140/67; PULSE 90; RESP 16; TEMP 37.1; O2SAT 95
[2023-01-26 04:25] VITALS: O2SAT 86
[2023-01-26] MEDS: Acetaminophen 500 MG Tablet 1000 MG PO ×3 (04:39→23:07)
[2023-01-26 04:50] VITALS: BP 139/53; PULSE 100; RESP 18; TEMP 36.6; O2SAT 95
[2023-01-26 05:01] LABS: Absolute Lymphocyte Count 0.46 X10^3/uL (0.83-4.51); Basophil# 0.02 X10^3/uL; Basophil% 0.4 % (0-1); Eosinophil# 0.11 X10^3/uL; Eosinophils% 2.2 % (0-5); Hematocrit 28.4 % (37-47); Hemoglobin 8.6 g/dL (12.0-15.0); Lymphocyte # 0.46 X10^3/ul (0.83-4.51); Lymphocyte % 9.4 % (19-41); Mean Corp Hgb Conc 30.3 g/dL (32-36); Mean Corpuscular Hgb 30.6 pg (27.0-32.0); Mean Corpuscular Volume 101.1 fL (81-99); Mean Platelet Vol. 8.9 fl (6.2-12.0); Monocyte# 0.31 X10^3/uL; Monocyte% 6.3 % (0-10); NRBC Flagged by Analyzer 0 % (0-5); Neutrophil # 3.99 X10^3/uL (2.7-7.7); Neutrophil % 81.3 % (47-70); POSITIVE DIFFERENTIAL YES; Platelet Count 264 K/mm3 (150-450); RBC Distribution Width CV 14.1 % (11.6-14.6); RBC Distribution Width SD 51.8 fl (35.1-43.9); Red Blood Count 2.81 M/mm3 (4.2-5.4); White Blood Count 4.9 K/mm3 (4.4-11.0)
[2023-01-26 05:16] LABS: Differential Indicated SCAN CRITERIA MET
[2023-01-26 05:36] LABS: Differential Comment SCANNED
[2023-01-26 06:00] VITALS: BMI 33.5
[2023-01-26 06:41] LABS: Bedside Glucose 176 mg/dL (74-106)
[2023-01-26 08:52] VITALS: BP 122/59; PULSE 102; RESP 16; TEMP 36.7; O2SAT 95
--- NOTE | 2023-01-26 08:55 | PCM.PN.REN ---
Subjective Subjective Resting in bed. No complaints. No overnight events. Objective Data Objective Data Vital Signs: Vital Signs Temp Pulse Resp BP Pulse Ox O2 Del Method O2 Flow Rate 98.1 F 102 H 16 122/59 H 95 Nasal Cannula 2 01/26/23 08:52 01/26/23 08:52 01/26/23 08:52 01/26/23 08:52 01/26/23 08:52 01/26/23 08:52 01/26/23 08:52 Oxygen Flow Rate (L/min) 2 Oxygen Delivery Method Nasal Cannula Weight: 100 kg Body Mass Index (BMI) 33.5 Intake & Output: Intake and Output for Last 24 Hours 01/24/23 01/25/23 01/26/23 23:59 23:59 23:59 Intake Total 975 / 975 1495 / 1495 450 / 450 Output Total 1700 / 1700 150 / 150 300 / 300 Balance -725 / -725 1345 / 1345 150 / 150 Lab / Micro Data 01/26/23 04:33 01/25/23 06:30 Labs: Laboratory Results - last 24 hr 01/25/23 11:57: POC Glucose 158 H 01/25/23 17:01: POC Glucose 172 H 01/25/23 20:14: POC Glucose 167 H 01/26/23 04:33: WBC 4.9, RBC 2.81 L, Hgb 8.6 L, Hct 28.4 L, MCV 101.1 H, MCH 30.6, MCHC 30.3 L, RDW Std Deviation 51.8 H, RDW Coeff of Ben 14.1, Plt Count 264, MPV 8.9, Immature Gran % (Auto) 0.400, Neut % (Auto) 81.3 H, Lymph % (Auto) 9.4 L, [place] % (Auto) 6.3, Eos % (Auto) 2.2, Baso % (Auto) 0.4, Absolute Neuts (auto) 4.0, Absolute Lymphs (auto) 0.46 L, Nucleated RBC % 0, Differential Comment SCANNED 01/26/23 06:24: POC Glucose 176 H Physical Exam Narrative Alert awake oriented x 3 no obvious distress s1s2 no murmurs lungs clear abdomen soft no edema Soft cast, Ronald wrap to right leg AV fistula left forearm positive thrill and bruit Assessment & Plan Assessment/Plan (1) ESRD (end stage renal disease) on dialysis: (2) Hyperkalemia: (3) Secondary hyperparathyroidism: (4) Anemia: QUALIFIERS: Anemia type: due to chronic kidney disease (5) Benign essential hypertension: PLAN: Plan Impression/Plan: The patient is a 57-year-old woman with past history of type 2 diabetes mellitus, hypertension, ESRD, osteoporosis, and hyperlipidemia. The patient presented to the hospital on 01/19/2023 after ground-level fall. She was found to have right tibial fracture and is status post right intramedullary tibial nail on 01/21/2023. Nephrology is following for ESRD and dialysis management. ESRD; HD TTS schedule at [facility]. No acute indication for SENIOR APPLICATION SECURITY CONSULTANT today. Will plan for dialysis tomorrow. Hyperkalemia; resolved. Dialysis tomorrow on 2K bath Anemia in chronic kidney disease; hemoglobin 8.6 today. Will continue JENISE with dialysis and monitor hgb trends Discharge planning in progress possibly to ECF for therapy
[2023-01-26] MEDS: Pantoprazole Sodium 20 MG Tablet PO (08:57)
[2023-01-26] MEDS: Calcitriol 0.25 MCG Capsule PO ×2 (08:57→23:16)
[2023-01-26] MEDS: Menthol/Lanolin/Calamine/Znox 113 GM Tube 1 APPLIC TOPICAL ×2 (08:58→23:08)
[2023-01-26] MEDS: APIXABAN 2.5 MG TABLET (WCH) PO ×2 (08:58→23:09)
[2023-01-26] MEDS: Ascorbic Acid 500 MG Tablet PO ×2 (08:58→16:28)
[2023-01-26] MEDS: Cholecalciferol (Vit D3) 125 MCG CAPSULE (5,000 UNITS) PO (08:59)
[2023-01-26] MEDS: Labetalol 100 MG Tablet 50 MG PO ×2 (08:59→23:10)
--- NOTE | 2023-01-26 09:04 | CASEMGMT ---
Discharge Planning Updates sent to [facility] via [facility]. Asked about status of referral. Awaiting response. Elenita Peoples, Discharge Planning Asst.
--- NOTE | 2023-01-26 09:29 | CASEMGMT ---
Discharge Planning Message received from [facility] that they now have open beds. Updates sent via [facility]. Awaiting response. Elenita Peoples, Discharge Planning Asst.
--- NOTE | 2023-01-26 09:48 | CASEMGMT ---
[facility] said they now have beds available and can take patient. DINO spoke with patient and she said she would like [facility] DINO asked [facility] to start the pre-cert. Plan: d/c to [facility] pending insurance approval. Jeannie HUMMEL
[2023-01-26] MEDS: Insulin Lispro 100 UNIT/ML INSULN.PEN SC ×3 (11:50→23:09)
[2023-01-26 12:12] LABS: Bedside Glucose 226 mg/dL (74-106)
--- NOTE | 2023-01-26 14:43 | PN_ITS ---
Subjective Subjective Patient seen and examined. She felt well and had no complaints. He had an uneventful night. Review of systems is otherwise negative. Objective Data Objective Data Vital Signs: Vital Signs Temp Pulse Resp BP Pulse Ox O2 Del Method O2 Flow Rate 98.1 F 102 H 16 122/59 H 95 Room Air 2 01/26/23 08:52 01/26/23 08:52 01/26/23 08:52 01/26/23 08:52 01/26/23 08:52 01/26/23 13:33 01/26/23 08:52 Oxygen Flow Rate (L/min) 2 Oxygen Delivery Method Room Air Weight: 220 lb 7.396 oz Body Mass Index (BMI) 33.5 Intake & Output: Intake and Output for Last 24 Hours 01/24/23 01/25/23 01/26/23 23:59 23:59 23:59 Intake Total 975 / 975 1495 / 1495 870 / 870 Output Total 1700 / 1700 150 / 150 300 / 300 Balance -725 / -725 1345 / 1345 570 / 570 Lab / Micro Data 01/26/23 04:33 01/25/23 06:30 Labs: Laboratory Results - last 24 hr 01/25/23 17:01: POC Glucose 172 H 01/25/23 20:14: POC Glucose 167 H 01/26/23 04:33: WBC 4.9, RBC 2.81 L, Hgb 8.6 L, Hct 28.4 L, MCV 101.1 H, MCH 30.6, MCHC 30.3 L, RDW Std Deviation 51.8 H, RDW Coeff of Ben 14.1, Plt Count 264, MPV 8.9, Immature Gran % (Auto) 0.400, Neut % (Auto) 81.3 H, Lymph % (Auto) 9.4 L, [place] % (Auto) 6.3, Eos % (Auto) 2.2, Baso % (Auto) 0.4, Absolute Neuts (auto) 4.0, Absolute Lymphs (auto) 0.46 L, Nucleated RBC % 0, Differential Comment SCANNED 01/26/23 06:24: POC Glucose 176 H 01/26/23 11:49: POC Glucose 226 H Radiography Diagnostic Testing: Radiology Impression Tibia/Fibula X-Ray 01/21/23 14:00 IMPRESSION: Intraoperative digital documentation views as described. Electronically Signed: Casa Galvez MD at 13:08 EST , Physical Exam Const alert, oriented x3, no apparent distress and well nourished General Appearance: cooperative and well developed HEENT normocephalic, head/scalp atraumatic, moist oral mucous membranes and oropharynx normal Eyes PERRL and EOMs intact bilaterally Neck no lymphadenopathy, supple and no JVD Lymph Lymphatic: no lymphadenopathy noted and no lymphedema noted Resp normal respiratory effort, normal air movement and clear to auscultation bilaterally Cardio regular rate, regular rhythm, S1 normal heart sound, S2 normal heart sound and no murmurs GI normal to inspection, nondistended, normoactive bowel sounds, soft to palpation, non-tender and non-distended Extremity normal capillary refill, no clubbing, cyanosis or edema and no calf tenderness Skin Skin Narrative: RLE wrapped in bandage General Skin Exam: no breakdown Neuro CN's II-XII intact bilaterally Coordination / Balance: [id number] test normal Motor Exam: general weakness Psych thought process normal, cooperative and affect normal Appearance: appropriate Assessment & Plan Assessment/Plan (1) Anemia: QUALIFIERS: Anemia type: due to chronic kidney disease (2) Fracture of fibula, right, closed: PLAN: Plan #Complete fracture of Right proximal tibia and fibula * 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 * RLE splinted. s/p right suprapatellar intramedullary tibial nail * PT/OT On board. Fall precautions. * on PO oxycodone, IV morphine prn for pain. * #ESRD: on HD TTS. Nephrology on board. Still makes urine #TYpe 2 diabetes mellitus: glipizide and trulicity. ISS. Accuchecks ACHS. A1C is 5.8' #COPD: on breathing treatment with bronchodilators. Not in exacerbation #Chronic anemia * due to ESRD. Hb is 8.6. * #DEpression: on zoloft #GERD: on PPI #Hypertension: DVT prophylaxis: on eliquis. Charges/Coding Visit Charges Inpatient E&M: 54303 Subs Hosp L2
[2023-01-26 15:00] VITALS: BP 144/67; PULSE 100; RESP 16; TEMP 36.8; O2SAT 93
--- NOTE | 2023-01-26 16:02 | CASEMGMT ---
Discharge Planning Requested therapy updated sent to [facility] via [facility]. Elenita Peoples, Discharge Planning Asst.
[2023-01-26] MEDS: oxyCODONE 5 MG Tablet 2.5 MG PO ×2 (16:28→23:12)
[2023-01-26 17:10] LABS: Bedside Glucose 161 mg/dL (74-106)
[2023-01-26 21:00] VITALS: BP 155/68; PULSE 100; RESP 16; TEMP 36.9; O2SAT 93
[2023-01-26] MEDS: Amitriptyline 100 MG Tablet PO (23:08)
[2023-01-26] MEDS: Atorvastatin Calcium 40 MG Tablet PO (23:09)
[2023-01-26] MEDS: Sodium Bicarbonate 650 MG Tablet PO (23:10)
[2023-01-26] MEDS: MELATONIN 10 MG TABLET 5 MG PO (23:10)
[2023-01-26] MEDS: Sertraline 50 MG Tablet PO (23:11)
[2023-01-26 23:36] LABS: Bedside Glucose 159 mg/dL (74-106)
[2023-01-27] VITALS (12 sets, daily range): BP systolic 118–263; BP diastolic 45–70; PULSE 84–100; RESP 13–16; TEMP 36.3–36.9; O2SAT 93–99; BMI 33.2; BMI 32.5
[2023-01-27] MEDS: Acetaminophen 500 MG Tablet 1000 MG PO ×3 (05:37→22:03)
[2023-01-27 06:54] LABS: Anion Gap 5 (5-15); BUN 63 mg/dL (7-18); BUN/Creat Ratio 11.1 RATIO (10-20); Calcium,Total 8.3 mg/dL (8.5-10.1); Chloride 103 mmol/L (98-107); EST Glomerular Filtration Rate 8 mL/min (>60); Est Glom Filt Rate - Afr Amer 10 mL/min (>60); Estimated Creatinine Clearance 10.98 ml/min; Glucose 124 mg/dL (74-106); Potassium 4.7 mmol/L (3.5-5.1); Sodium Level 134 mmol/L (136-145)
[2023-01-27 07:05] LABS: Bedside Glucose 116 mg/dL (74-106)
[2023-01-27] MEDS: oxyCODONE 5 MG Tablet 2.5 MG PO ×2 (07:38→14:10)
[2023-01-27] MEDS: PureFlow B 2K Dialysis Soln 1 BAG 6 BAG PF (07:45)
[2023-01-27] MEDS: 0.9% Normal Saline 1,000 ML IV.SOLN. 1000 ML OPERA.SITE (07:45)
[2023-01-27] MEDS: Epoetin Alfa epbx 10,000 UNITS/ML 10000 UNIT IV (09:23)
--- NOTE | 2023-01-27 10:03 | PN_ITS ---
Subjective Subjective Patient seen and examined. She had no complaints. She had some urinary symptoms overnight, but these have now resolved. REview of systems is otherwise negative. She is awaiting placement. Objective Data Objective Data Vital Signs: Vital Signs Temp Pulse Resp BP Pulse Ox O2 Del Method O2 Flow Rate 97.4 F L 87 13 124/45 H 98 Room Air 2 01/27/23 09:05 01/27/23 09:44 01/27/23 09:44 01/27/23 09:44 01/27/23 09:05 01/27/23 09:44 01/26/23 08:52 Oxygen Flow Rate (L/min) 2 Oxygen Delivery Method Room Air Weight: 218 lb 4.122 oz Body Mass Index (BMI) 33.2 Intake & Output: Intake and Output for Last 24 Hours 01/25/23 01/26/23 01/27/23 23:59 23:59 23:59 Intake Total 1495 / 1495 1370 / 1370 400 / 400 Output Total 150 / 150 300 / 300 Balance 1345 / 1345 1070 / 1070 400 / 400 Lab / Micro Data 01/26/23 04:33 01/27/23 05:20 Labs: Laboratory Results - last 24 hr 01/26/23 11:49: POC Glucose 226 H 01/26/23 16:26: POC Glucose 161 H 01/26/23 22:57: POC Glucose 159 H 01/27/23 05:20: Sodium 134 L, Potassium 4.7, Chloride 103, Carbon Dioxide 26.0, Anion Gap 5, BUN 63 H, Creatinine 5.70 H, Estim Creat Clear Calc 10.98, Est GFR (MDRD) Af Amer 10 L, Est GFR (MDRD) Non-Af 8 L, BUN/Creatinine Ratio 11.1, Glucose 124 H, Calcium 8.3 L 01/27/23 06:28: POC Glucose 116 H Radiography Diagnostic Testing: Radiology Impression Tibia/Fibula X-Ray 01/21/23 14:00 IMPRESSION: Intraoperative digital documentation views as described. Electronically Signed: Casa Galvez MD at 13:08 EST , Physical Exam Const alert, oriented x3, no apparent distress and well nourished General Appearance: cooperative and well developed HEENT normocephalic, head/scalp atraumatic, moist oral mucous membranes and oropharynx normal Eyes PERRL and EOMs intact bilaterally Neck no lymphadenopathy, supple and no JVD Lymph Lymphatic: no lymphadenopathy noted and no lymphedema noted Resp normal respiratory effort, normal air movement and clear to auscultation bilaterally Cardio regular rate, regular rhythm, S1 normal heart sound, S2 normal heart sound and no murmurs GI normal to inspection, nondistended, normoactive bowel sounds, soft to palpation, non-tender and non-distended Extremity normal capillary refill, no clubbing, cyanosis or edema and no calf tenderness Skin Skin Narrative: RLE wrapped in bandage General Skin Exam: no breakdown Neuro CN's II-XII intact bilaterally Coordination / Balance: [id number] test normal Motor Exam: general weakness Psych thought process normal, cooperative and affect normal Appearance: appropriate Assessment & Plan Assessment/Plan (1) Anemia: QUALIFIERS: Anemia type: due to chronic kidney disease (2) Fracture of fibula, right, closed: PLAN: Plan #Complete fracture of Right proximal tibia and fibula * 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 * RLE splinted. s/p right suprapatellar intramedullary tibial nail * PT/OT On board. Fall precautions. * on PO oxycodone, IV morphine prn for pain. * #ESRD: on HD TTS. Nephrology on board. Still makes urine #TYpe 2 diabetes mellitus: glipizide and trulicity. ISS. Accuchecks ACHS. A1C is 5.8 #COPD: on breathing treatment with bronchodilators. Not in exacerbation #Chronic anemia * due to ESRD.stable. Will monitor * #DEpression: on zoloft #GERD: on PPI DVT prophylaxis: on eliquis. Disposition: awaiting dc to SNF pending precert. Charges/Coding Visit Charges Inpatient E&M: 32191 Subs Hosp L2
--- NOTE | 2023-01-27 10:42 | PCM.PN.REN ---
Subjective Subjective Seen while on dialysis. Tolerating treatment well. Objective Data Objective Data Vital Signs: Vital Signs Temp Pulse Resp BP Pulse Ox O2 Del Method O2 Flow Rate 97.4 F L 86 13 124/59 H 98 Room Air 2 01/27/23 09:05 01/27/23 10:14 01/27/23 10:14 01/27/23 10:14 01/27/23 09:05 01/27/23 10:14 01/26/23 08:52 Oxygen Flow Rate (L/min) 2 Oxygen Delivery Method Room Air Weight: 99 kg Body Mass Index (BMI) 33.2 Intake & Output: Intake and Output for Last 24 Hours 01/25/23 01/26/23 01/27/23 23:59 23:59 23:59 Intake Total 1495 / 1495 1370 / 1370 400 / 400 Output Total 150 / 150 300 / 300 Balance 1345 / 1345 1070 / 1070 400 / 400 Lab / Micro Data 01/26/23 04:33 01/27/23 05:20 Labs: Laboratory Results - last 24 hr 01/26/23 11:49: POC Glucose 226 H 01/26/23 16:26: POC Glucose 161 H 01/26/23 22:57: POC Glucose 159 H 01/27/23 05:20: Sodium 134 L, Potassium 4.7, Chloride 103, Carbon Dioxide 26.0, Anion Gap 5, BUN 63 H, Creatinine 5.70 H, Estim Creat Clear Calc 10.98, Est GFR (MDRD) Af Amer 10 L, Est GFR (MDRD) Non-Af 8 L, BUN/Creatinine Ratio 11.1, Glucose 124 H, Calcium 8.3 L 01/27/23 06:28: POC Glucose 116 H Radiography Diagnostic Testing: Radiology Impression Tibia/Fibula X-Ray 01/21/23 14:00 IMPRESSION: Intraoperative digital documentation views as described. Electronically Signed: Casa Galvez MD at 13:08 EST , Physical Exam Narrative Alert awake oriented x 3 no obvious distress s1s2 no murmurs lungs clear abdomen soft no edema Soft cast, Ronald wrap to right leg AV fistula left forearm positive thrill and bruit Assessment & Plan Assessment/Plan (1) ESRD (end stage renal disease) on dialysis: (2) Hyperkalemia: (3) Secondary hyperparathyroidism: (4) Anemia: QUALIFIERS: Anemia type: due to chronic kidney disease (5) Benign essential hypertension: PLAN: Plan Impression/Plan: The patient is a 57-year-old woman with past history of type 2 diabetes mellitus, hypertension, ESRD, osteoporosis, and hyperlipidemia. The patient presented to the hospital on 01/19/2023 after ground-level fall. She was found to have right tibial fracture and is status post right intramedullary tibial nail on 01/21/2023. Nephrology is following for ESRD and dialysis management. ESRD; HD TTS schedule at [facility]. Dialysis today with fluid removal as patient and bp tolerates. Anemia in chronic kidney disease; hemoglobin 8.6, will continue JENISE with dialysis Discharge planning in progress possibly to ECF for therapy
[2023-01-27] MEDS: Pantoprazole Sodium 20 MG Tablet PO (10:54)
[2023-01-27] MEDS: Ferrous Sulfate 325 MG Tablet PO (10:54)
[2023-01-27] MEDS: Ascorbic Acid 500 MG Tablet PO ×2 (10:55→16:15)
[2023-01-27] MEDS: Menthol/Lanolin/Calamine/Znox 113 GM Tube 1 APPLIC TOPICAL (10:55)
[2023-01-27] MEDS: APIXABAN 2.5 MG TABLET (WCH) PO ×2 (10:55→22:06)
[2023-01-27] MEDS: Labetalol 100 MG Tablet 50 MG PO ×2 (10:55→22:08)
[2023-01-27] MEDS: Cholecalciferol (Vit D3) 125 MCG CAPSULE (5,000 UNITS) PO (10:56)
[2023-01-27] MEDS: Insulin Lispro 100 UNIT/ML INSULN.PEN SC ×3 (10:57→22:02)
[2023-01-27] MEDS: Calcitriol 0.25 MCG Capsule PO ×2 (10:59→22:08)
[2023-01-27 11:18] LABS: Bedside Glucose 157 mg/dL (74-106)
[2023-01-27] MEDS: Ondansetron 4 MG/2 ML Vial IV (14:10)
[2023-01-27] MEDS: 0.9% Saline Lock 10 ML Syringe IV (14:10)
[2023-01-27 16:33] LABS: Bedside Glucose 222 mg/dL (74-106)
[2023-01-27] MEDS: Amitriptyline 100 MG Tablet PO (22:02)
[2023-01-27] MEDS: Senna/Docusate Sodium 1 Tablet 2 TABLET PO (22:03)
[2023-01-27] MEDS: Sertraline 50 MG Tablet PO (22:03)
[2023-01-27] MEDS: MELATONIN 10 MG TABLET 5 MG PO (22:03)
[2023-01-27] MEDS: Atorvastatin Calcium 40 MG Tablet PO (22:04)
[2023-01-27] MEDS: Sodium Bicarbonate 650 MG Tablet PO (22:04)
[2023-01-27 22:30] LABS: Bedside Glucose 155 mg/dL (74-106)
[2023-01-28 03:05] VITALS: BP 136/64; PULSE 88; RESP 16; TEMP 36.6; O2SAT 91
[2023-01-28 05:50] VITALS: BMI 32.5
[2023-01-28] MEDS: Acetaminophen 500 MG Tablet 1000 MG PO ×3 (06:51→22:01)
[2023-01-28 06:55] VITALS: BP 132/70; PULSE 90; RESP 16; TEMP 36.6; O2SAT 92
[2023-01-28 07:01] LABS: Bedside Glucose 125 mg/dL (74-106)
[2023-01-28] MEDS: Psyllium 1 PACKET PO (07:57)
[2023-01-28] MEDS: Labetalol 100 MG Tablet 50 MG PO ×2 (07:58→22:00)
[2023-01-28] MEDS: Senna/Docusate Sodium 1 Tablet 2 TABLET PO ×2 (07:58→22:00)
[2023-01-28] MEDS: Ascorbic Acid 500 MG Tablet PO ×2 (07:58→16:20)
[2023-01-28] MEDS: APIXABAN 2.5 MG TABLET (WCH) PO ×2 (07:58→22:01)
[2023-01-28 07:59] LABS: Absolute Lymphocyte Count 1.96 X10^3/uL (0.83-4.51); Absolute Neutrophil Count 5.2 X10^3/uL (2.0-7.7); Basophil# 0.07 X10^3/uL; Basophil% 0.8 % (0-1); Eosinophil# 0.44 X10^3/uL; Hematocrit 25.4 % (37-47); Hemoglobin 7.6 g/dL (12.0-15.0); Lymphocyte # 1.96 X10^3/ul (0.83-4.51); Lymphocyte % 22.5 % (19-41); Mean Corp Hgb Conc 29.9 g/dL (32-36); Mean Corpuscular Hgb 29.9 pg (27.0-32.0); Mean Platelet Vol. 8.9 fl (6.2-12.0); Monocyte# 0.84 X10^3/uL; Monocyte% 9.6 % (0-10); NRBC Flagged by Analyzer 0 % (0-5); Neutrophil # 5.19 X10^3/uL (2.7-7.7); Neutrophil % 59.6 % (47-70); Platelet Count 303 K/mm3 (150-450); RBC Distribution Width CV 14.2 % (11.6-14.6); RBC Distribution Width SD 51.3 fl (35.1-43.9); Red Blood Count 2.54 M/mm3 (4.2-5.4); White Blood Count 8.7 K/mm3 (4.4-11.0)
[2023-01-28] MEDS: Cholecalciferol (Vit D3) 125 MCG CAPSULE (5,000 UNITS) PO (07:59)
[2023-01-28] MEDS: Pantoprazole Sodium 20 MG Tablet PO (07:59)
[2023-01-28] MEDS: Calcitriol 0.25 MCG Capsule PO ×2 (07:59→22:00)
[2023-01-28] MEDS: Menthol/Lanolin/Calamine/Znox 113 GM Tube 1 APPLIC TOPICAL ×2 (08:00→22:03)
--- NOTE | 2023-01-28 09:51 | PCM.PN.REN ---
Subjective Subjective Resting in bed, no complaints. No overnight events. Objective Data Objective Data Vital Signs: Vital Signs Temp Pulse Resp BP Pulse Ox O2 Del Method O2 Flow Rate 97.8 F 90 16 132/70 H 92 Room Air 2 01/28/23 06:55 01/28/23 06:55 01/28/23 06:55 01/28/23 06:55 01/28/23 06:55 01/28/23 06:55 01/26/23 08:52 Oxygen Flow Rate (L/min) 2 Oxygen Delivery Method Room Air Weight: 97.2 kg Body Mass Index (BMI) 32.5 Intake & Output: Intake and Output for Last 24 Hours 01/26/23 01/27/23 01/28/23 23:59 23:59 23:59 Intake Total 1370 / 1370 1240 / 1240 0 / 0 Output Total 300 / 300 2350 / 2350 0 / 0 Balance 1070 / 1070 -1110 / -1110 0 / 0 Lab / Micro Data 01/28/23 05:50 01/27/23 05:20 Labs: Laboratory Results - last 24 hr 01/27/23 10:57: POC Glucose 157 H 01/27/23 16:14: POC Glucose 222 H 01/27/23 21:57: POC Glucose 155 H 01/28/23 05:50: WBC 8.7, RBC 2.54 L, Hgb 7.6 L, Hct 25.4 L, MCV 100.0 H, MCH 29.9, MCHC 29.9 L, RDW Std Deviation 51.3 H, RDW Coeff of Ben 14.2, Plt Count 303, MPV 8.9, Immature Gran % (Auto) 2.500 H, Neut % (Auto) 59.6, Lymph % (Auto) 22.5, [place] % (Auto) 9.6, Eos % (Auto) 5.0, Baso % (Auto) 0.8, Absolute Neuts (auto) 5.2, Absolute Lymphs (auto) 1.96, Nucleated RBC % 0 01/28/23 06:41: POC Glucose 125 H Physical Exam Narrative Alert awake oriented x 3 no obvious distress s1s2 no murmurs lungs clear abdomen soft no edema Soft cast, Ronald wrap to right leg AV fistula left forearm positive thrill and bruit Assessment & Plan Assessment/Plan (1) ESRD (end stage renal disease) on dialysis: (2) Hyperkalemia: (3) Secondary hyperparathyroidism: (4) Anemia: QUALIFIERS: Anemia type: due to chronic kidney disease (5) Benign essential hypertension: PLAN: Plan Impression/Plan: The patient is a 57-year-old woman with past history of type 2 diabetes mellitus, hypertension, ESRD, osteoporosis, and hyperlipidemia. The patient presented to the hospital on 01/19/2023 after ground-level fall. She was found to have right tibial fracture and is status post right intramedullary tibial nail on 01/21/2023. Nephrology is following for ESRD and dialysis management. ESRD; HD TTS schedule at [facility]. Dialyzed yesterday. No acute indication for [employer] today, next dialysis tomorrow. Anemia in chronic kidney disease; monitor hemoglobin trends. Will continue giving JENISE with dialysis Discharge planning in progress to ECF for therapy, waiting for insurance approval. If discharged to ECF today, next dialysis would be tomorrow at .
--- NOTE | 2023-01-28 10:09 | PN_ITS ---
Subjective Subjective Patient seen and examined. She had no active complaints and had an uneventful night; Review of systems is otherwise negative. She has remained hemodynamically stable. Objective Data Objective Data Vital Signs: Vital Signs Temp Pulse Resp BP Pulse Ox O2 Del Method O2 Flow Rate 97.8 F 90 16 132/70 H 92 Room Air 2 01/28/23 06:55 01/28/23 06:55 01/28/23 06:55 01/28/23 06:55 01/28/23 06:55 01/28/23 06:55 01/26/23 08:52 Oxygen Flow Rate (L/min) 2 Oxygen Delivery Method Room Air Weight: 214 lb 4.629 oz Body Mass Index (BMI) 32.5 Intake & Output: Intake and Output for Last 24 Hours 01/26/23 01/27/23 01/28/23 23:59 23:59 23:59 Intake Total 1370 / 1370 1240 / 1240 0 / 0 Output Total 300 / 300 2350 / 2350 0 / 0 Balance 1070 / 1070 -1110 / -1110 0 / 0 Lab / Micro Data 01/28/23 05:50 01/27/23 05:20 Labs: Laboratory Results - last 24 hr 01/27/23 10:57: POC Glucose 157 H 01/27/23 16:14: POC Glucose 222 H 01/27/23 21:57: POC Glucose 155 H 01/28/23 05:50: WBC 8.7, RBC 2.54 L, Hgb 7.6 L, Hct 25.4 L, MCV 100.0 H, MCH 29.9, MCHC 29.9 L, RDW Std Deviation 51.3 H, RDW Coeff of Ben 14.2, Plt Count 303, MPV 8.9, Immature Gran % (Auto) 2.500 H, Neut % (Auto) 59.6, Lymph % (Auto) 22.5, [place] % (Auto) 9.6, Eos % (Auto) 5.0, Baso % (Auto) 0.8, Absolute Neuts (auto) 5.2, Absolute Lymphs (auto) 1.96, Nucleated RBC % 0 01/28/23 06:41: POC Glucose 125 H Physical Exam Const alert, oriented x3, no apparent distress and well nourished General Appearance: cooperative and well developed HEENT normocephalic, head/scalp atraumatic, moist oral mucous membranes and oropharynx normal Eyes PERRL and EOMs intact bilaterally Neck no lymphadenopathy, supple and no JVD Lymph Lymphatic: no lymphadenopathy noted and no lymphedema noted Resp normal respiratory effort, normal air movement and clear to auscultation bilaterally Cardio regular rate, regular rhythm, S1 normal heart sound, S2 normal heart sound and no murmurs GI normal to inspection, nondistended, normoactive bowel sounds, soft to palpation, non-tender and non-distended Extremity normal capillary refill, no clubbing, cyanosis or edema and no calf tenderness Skin Skin Narrative: RLE wrapped in bandage General Skin Exam: no breakdown Neuro CN's II-XII intact bilaterally Coordination / Balance: [id number] test normal Motor Exam: general weakness Psych thought process normal, cooperative and affect normal Appearance: appropriate Assessment & Plan Assessment/Plan (1) Anemia: QUALIFIERS: Anemia type: due to chronic kidney disease (2) Fracture of fibula, right, closed: PLAN: Plan #Complete fracture of Right proximal tibia and fibula * 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 * RLE splinted. s/p right suprapatellar intramedullary tibial nail * PT/OT On board. Fall precautions. * on PO oxycodone, IV morphine prn for pain. * #ESRD: on HD TTS. Nephrology on board. Still makes urine #TYpe 2 diabetes mellitus: glipizide and trulicity. ISS. Accuchecks ACHS. A1C is 5.8 #COPD: on breathing treatment with bronchodilators. Not in exacerbation #Chronic anemia * due to ESRD. stable. Will monitor * Hb today is 7.6. On iron supplementation * #DEpression: on zoloft #GERD: on PPI DVT prophylaxis: on eliquis. Disposition: awaiting dc to SNF pending precert. Charges/Coding Visit Charges Inpatient E&M: 46669 Subs Hosp L2
[2023-01-28 11:05] VITALS: BP 140/62; PULSE 89; RESP 16; TEMP 36.1; O2SAT 97
[2023-01-28] MEDS: Insulin Lispro 100 UNIT/ML INSULN.PEN SC ×3 (11:28→21:59)
[2023-01-28 11:49] LABS: Bedside Glucose 253 mg/dL (74-106)
[2023-01-28] MEDS: hydrOXYzine PAM 25 MG Capsule PO (13:24)
[2023-01-28] MEDS: oxyCODONE 5 MG Tablet 2.5 MG PO ×2 (14:40→22:11)
[2023-01-28 16:15] VITALS: BP 156/69; PULSE 96; RESP 16; TEMP 36.1; O2SAT 95
[2023-01-28 21:15] VITALS: BP 155/69; PULSE 99; RESP 17; TEMP 36.8; O2SAT 95
[2023-01-28] MEDS: Atorvastatin Calcium 40 MG Tablet PO (21:59)
[2023-01-28] MEDS: Sodium Bicarbonate 650 MG Tablet PO (22:00)
[2023-01-28] MEDS: MELATONIN 10 MG TABLET 5 MG PO (22:00)
[2023-01-28] MEDS: Amitriptyline 100 MG Tablet PO (22:01)
[2023-01-28] MEDS: Sertraline 50 MG Tablet PO (22:01)
[2023-01-28 22:24] LABS: Bedside Glucose 211 mg/dL (74-106)
[2023-01-28 22:41] LABS: Bedside Glucose 165 mg/dL (74-106)
[2023-01-29] VITALS (10 sets, daily range): BP systolic 100–229; BP diastolic 55–68; PULSE 85–96; RESP 16–18; TEMP 35.9–36.6; O2SAT 90–99; BMI 33.5; BMI 33.9; BMI 33.7
[2023-01-29] MEDS: hydrOXYzine PAM 25 MG Capsule PO (06:17)
[2023-01-29] MEDS: Acetaminophen 500 MG Tablet 1000 MG PO ×2 (06:18→13:27)
[2023-01-29 06:31] LABS: Bedside Glucose 118 mg/dL (74-106)
--- NOTE | 2023-01-29 07:38 | CASEMGMT ---
DINO received a message from [facility] on 01-28 at 16:43 that patient was approved. DINO and d/c community health planning director left for the day so will d/c patient this am. Jeannie HUMMEL
[2023-01-29] MEDS: PureFlow B 2K Dialysis Soln 1 BAG 6 BAG PF (08:17)
[2023-01-29] MEDS: 0.9% Normal Saline 1,000 ML IV.SOLN. 1000 ML OPERA.SITE (08:17)
[2023-01-29] MEDS: Epoetin Alfa epbx 10,000 UNITS/ML 10000 UNIT IV (09:16)
--- NOTE | 2023-01-29 10:02 | CASEMGMT ---
Physician notified patient was approved for [facility]. Physician will discharge patient today. Plan: d/c to [facility] Jeannie HUMMEL
--- NOTE | 2023-01-29 10:19 | PCM.PN.REN ---
Subjective Subjective Seen and examined on dialysis. No complaints today. No overnight events. Objective Data Objective Data Vital Signs: Vital Signs Temp Pulse Resp BP Pulse Ox O2 Del Method O2 Flow Rate 98 F 96 18 146/66 H 94 Room Air 2 01/29/23 03:15 01/29/23 10:00 01/29/23 10:00 01/29/23 10:00 01/29/23 10:00 01/29/23 10:00 01/26/23 08:52 Oxygen Flow Rate (L/min) 2 Oxygen Delivery Method Room Air Weight: 101.151 kg Body Mass Index (BMI) 33.9 Intake & Output: Intake and Output for Last 24 Hours 01/27/23 01/28/23 01/29/23 23:59 23:59 23:59 Intake Total 1240 / 1240 Output Total 2350 / 2350 2350 / 2350 0 / 0 Balance -1110 / -1110 -2320 / -2320 Lab / Micro Data 01/28/23 05:50 01/27/23 05:20 Labs: Laboratory Results - last 24 hr 01/28/23 11:25: POC Glucose 253 H 01/28/23 16:13: POC Glucose 165 H 01/28/23 21:56: POC Glucose 211 H 01/29/23 06:12: POC Glucose 118 H Physical Exam Narrative Alert awake oriented x 3 no obvious distress s1s2 no murmurs lungs clear abdomen soft no edema Soft cast, Ronald wrap to right leg AV fistula left forearm positive thrill and bruit Assessment & Plan Assessment/Plan (1) ESRD (end stage renal disease) on dialysis: (2) Hyperkalemia: (3) Secondary hyperparathyroidism: (4) Anemia: QUALIFIERS: Anemia type: due to chronic kidney disease (5) Benign essential hypertension: PLAN: Plan Impression/Plan: The patient is a 57-year-old woman with past history of type 2 diabetes mellitus, hypertension, ESRD, osteoporosis, and hyperlipidemia. The patient presented to the hospital on 01/19/2023 after ground-level fall. She was found to have right tibial fracture and is status post right intramedullary tibial nail on 01/21/2023. Nephrology is following for ESRD and dialysis management. ESRD; HD TTS schedule at [facility]. To undergo dialysis today over 3.5 hours with around 1 L fluid removal as patient/blood pressure tolerates Anemia in chronic kidney disease; monitor hemoglobin trends. Will continue giving JENISE with dialysis Discharge planning in progress to ECF for therapy, waiting for insurance approval. Possible discharge today.
--- NOTE | 2023-01-29 11:46 | TREXTCAR_ITS ---
Diet Diet Order/Speech Therapy: 01/25/23 13:02 Diet: Renal - ConsCHO - Michael Cont Is pt able to select menu?: Yes How many daily calories?: 1999 calorie Routine Orders/Code Status Enema Type: Fleetz Enema Frequency: Daily PRN Suppository Type: Dulcolax 10mg Suppository Frequency: Daily PRN O2 Frequency: PRN Keep PO Greater than or Equal to (%): 90 Wound(s) RIGHT KNEE: Wound Type: Surgical Incision Therapies Weight Bearing: Weight bearing as tolerated Physical Therapy: Eval and Treat Occupational Therapy: Eval and Treat Problem/Diagnosis (1) ESRD (end stage renal disease) on dialysis: Status: Acute Code(s): N18.6 - End stage renal disease; Z99.2 - Dependence on renal dialysis (2) Hyperkalemia: Status: Acute Code(s): E87.5 - Hyperkalemia (3) Secondary hyperparathyroidism: Status: Acute Code(s): N25.81 - Secondary hyperparathyroidism of renal origin (4) Anemia: Status: Acute Code(s): D64.9 - Anemia, unspecified (5) Benign essential hypertension: Status: Acute Code(s): I10 - Essential (primary) hypertension Plan #Complete fracture of Right proximal tibia and fibula * 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 * RLE splinted. s/p right suprapatellar intramedullary tibial nail * PT/OT On board. Fall precautions. * on PO oxycodone, IV morphine prn for pain. * #ESRD: on HD TTS. Nephrology on board. Still makes urine #TYpe 2 diabetes mellitus: glipizide and trulicity. ISS. Accuchecks ACHS. A1C is 5.8 #COPD: on breathing treatment with bronchodilators. Not in exacerbation #Chronic anemia * due to ESRD. stable. Will monitor * Hb today is 7.6. On iron supplementation * #DEpression: on zoloft #GERD: on PPI DVT prophylaxis: on eliquis. Disposition: awaiting dc to SNF pending precert. Allergies/Procedures Done in Hospital Allergies balsam carin Allergy (Unknown, Verified 01/19/23 07:12) UNKNOWN mold Allergy (Unknown, Verified 01/19/23 07:12) unknown lisinopril Allergy (Verified 01/19/23 07:12) unknown x Penicillins Allergy (Verified 01/19/23 07:12) Anaphylaxis tetracycline [Tetracycline] Allergy (Verified 01/19/23 07:12) Anaphylaxis codeine Adverse Reaction (Verified 01/19/23 07:12) Abd cramps/diarrhea diphenhydramine HCl [From Benadryl] Adverse Reaction (Verified 01/19/23 07:12) Upset Stomach hydrocodone bitartrate [From Vicodin] Adverse Reaction (Verified 01/19/23 07:12) Abd cramps/diarrhea NSAIDS (Non-Steroidal Anti-Inflamma Adverse Reaction (Verified 01/19/23 07:12) Unknown Procedures: None Type of Care/Length of Stay Estimated LOS: Convalescent Care Less Than 30 days Type of Care Needed: Skilled Rehab Potential: Fair Prognosis: Fair Additional Orders/Day of Discharge Day of Discharge: 01/29/23 Dietary and Speech Recommendations Dietitian Recommendations/Changes: RD will change diet to renal, 2000 calorie controlled, consistent CHO diet when medically indicated; will monitor PO intake and adjust diet/add ONS as indicated Will discontinue Ensure Surgery due to not stocked on the floor and pt dislikes [facility]. Discharge Plan Admission Admit Date/Time: 01/19/23 13:44 Primary Reason for Your Visit: fracture of right tibia and fibula Attending Provider: Carolina Caba Primary Care Provider: Aki Archibald Consulting Providers: Deshawn Tucker; Sofía Hill; Mone Riggs; Branden Banks Instructions Patient Instructions: Having Tibia/Fibula Fracture ... Discharge Orders/Prescriptions Prescriptions: New Eliquis 2.5 mg tablet 2.5 mg PO BID Qty: 56 0RF oxycodone 5 mg tablet 5 mg PO Q6H PRN (Reason: pain) 3 Days Qty: 12 0RF Continued cholecalciferol (vitamin D3) [Vitamin D3] 1,000 UNIT capsule 5,000 unit PO DAILY omeprazole 20 MG capsule 20 mg PO DAILY labetalol 200 MG tablet 100 mg PO BID glipizide 5 MG tablet 10 mg PO DAILY aspirin [Aspir-Low] 81 MG tablet,delayed release (DR/EC) 81 mg PO DAILY melatonin 5 MG capsule 5 mg PO QHS ferrous sulfate [Iron (ferrous sulfate)] 325 MG tablet 325 mg PO DAILY atorvastatin 40 mg tablet 40 mg PO QHS calcitriol 0.25 mcg capsule 0.25 mcg PO BID Trulicity 1.5 mg/0.5 mL pen injector 1.5 mg SUBCUT QWEEK sodium bicarbonate 650 mg tablet 650 mg PO QHS sertraline 50 mg tablet 50 mg PO QHS hydroxyzine HCl 50 mg tablet 50 mg PO Q6H PRN (Reason: itching) amitriptyline 100 mg tablet 100 mg PO QHS acetaminophen 325 mg Tablet 650 mg PO Q4H PRN PRN (Reason: Fever, pain 1-12/09) Qty: 0 0RF docusate sodium [DOK] 100 mg capsule 100 mg PO DAILY Qty: 20 0RF Discontinued oxycodone 5 mg tablet 5 mg PO Q8H PRN (Reason: pain) 3 Days Qty: 10 0RF Referrals / Follow Up: Sofía Hill MD [Med Staff - Consulting] - Within 2 Weeks Deshawn Tucker MD [Med Staff - Active Staff] - Within 2 Weeks Aki Archibald MD [Primary Care Provider] - Within 1 Week Disposition Disposition (needs filled in before D/C Order can be placed): [facility] (4) Anemia Qualifiers: Anemia type: due to chronic kidney disease
[2023-01-29] MEDS: Labetalol 100 MG Tablet 50 MG PO (11:59)
[2023-01-29] MEDS: Ferrous Sulfate 325 MG Tablet PO (12:00)
[2023-01-29] MEDS: Pantoprazole Sodium 20 MG Tablet PO (12:00)
[2023-01-29] MEDS: Ascorbic Acid 500 MG Tablet PO (12:00)
[2023-01-29] MEDS: APIXABAN 2.5 MG TABLET (WCH) PO (12:00)
[2023-01-29] MEDS: Senna/Docusate Sodium 1 Tablet 2 TABLET PO (12:00)
[2023-01-29] MEDS: Calcitriol 0.25 MCG Capsule PO (12:01)
[2023-01-29] MEDS: Menthol/Lanolin/Calamine/Znox 113 GM Tube 1 APPLIC TOPICAL (12:01)
[2023-01-29] MEDS: Cholecalciferol (Vit D3) 125 MCG CAPSULE (5,000 UNITS) PO (12:01)
[2023-01-29] MEDS: 0.9% Saline Lock 10 ML Syringe IV (12:07)
--- NOTE | 2023-01-29 12:14 | PHA.DC_ITS ---
Pharmacy PR Med Reconciliation Pharmacy Service has performed discharge medication reconciliation for this patient upon transfer to [facility]. The patient's discharge medication list was reviewed for discrepancies and discrepancies were resolved. Medications at Discharge Home Medications cholecalciferol (vitamin D3) 25 mcg (1,000 unit) capsule (Vitamin D3) 5,000 unit PO DAILY 10/03/13 omeprazole 20 mg capsule,delayed release 20 mg PO DAILY 08/23/14 glipizide 5 mg tablet 10 mg PO DAILY 04/28/15 labetalol 200 mg tablet 100 mg PO BID 04/28/15 aspirin 81 mg tablet,delayed release (Aspir-Low) 81 mg PO DAILY 05/27/16 melatonin 5 mg capsule 5 mg PO QHS 05/27/16 ferrous sulfate 325 mg (65 mg iron) tablet (Iron (ferrous sulfate)) 325 mg PO DAILY 11/25/16 amitriptyline 100 mg tablet 100 mg PO QHS sleep 09/10/22 atorvastatin 40 mg tablet 40 mg PO QHS hyperlipidemia 09/10/22 calcitriol 0.25 mcg capsule 0.25 mcg PO BID 09/10/22 dulaglutide 1.5 mg/0.5 mL subcutaneous pen injector (Trulicity) 1.5 mg subcut QWEEK diabetes 09/10/22 hydroxyzine HCl 50 mg tablet 50 mg PO Q6H PRN itching 09/10/22 sertraline 50 mg tablet 50 mg PO QHS bipolar 09/10/22 sodium bicarbonate 650 mg tablet 650 mg PO QHS 09/10/22 acetaminophen 325 mg tablet 650 mg (2 x 325 mg) PO Q4H PRN PRN Fever, pain 1- 12/09 #0 tabs 09/11/22 docusate sodium 100 mg capsule (DOK) 100 mg PO DAILY #20 CAPSULES 01/15/23 apixaban 2.5 mg tablet (Eliquis) 2.5 mg PO BID #56 tabs 01/29/23 oxycodone 5 mg tablet 5 mg PO Q6H PRN pain 3 days #12 tabs 01/29/23
[2023-01-29 12:27] LABS: Bedside Glucose 153 mg/dL (74-106)
--- NOTE | 2023-01-29 13:02 | CASEMGMT ---
Patient discharged to [facility] under skilled level of care on a convalescent stay. Physicians will transport patient via cot. Jeannie HUMMEL
[2023-01-29] MEDS: oxyCODONE 5 MG Tablet 2.5 MG PO (13:30)
--- NOTE | 2023-01-29 13:48 | CASEMGMT ---
Discharge Planning Discharge orders, signed med list, covid results, and transport time sent to [facility] via [facility]. [facility] will transport patient by cot at 2p. roofer, SW, and patient updated. Elenita Peoples, Discharge Planning Asst.
--- NOTE | 2023-01-29 15:40 | PCM.DC.SUM ---
Providers Date of Admission: 01/19/23 Date of Discharge: 01/29/23 Primary Care Physician: Dr. Aki Archibald MD Consultations 01/19/23 16:30 Consult: Nephrology Routine Consulting Provider: Sofía Hill Reason for Consult: hx esrd //thu, last HD th EMERGENT Consult: No MD Notified: Yes Date Notified: 01/19/23 Time Notified: 16:34 Method of Notification: Text Consult: Orthopedics Routine Consulting Provider: Deshawn Tucker Reason for Consult: Complete R proximal tib/fib fx EMERGENT Consult: No Notified: Yes Date Notified: 01/19/23 Time Notified: 13:56 Method of Notification: ED Physician Initiated Reason For Visit: TIB/FIB FRACTURE INABILITY TO AMBULATE Diagnosis Discharge Diagnosis (1) ESRD (end stage renal disease) on dialysis: Status: Acute Code(s): N18.6 - End stage renal disease; Z99.2 - Dependence on renal dialysis (2) Hyperkalemia: Status: Acute Code(s): E87.5 - Hyperkalemia (3) Secondary hyperparathyroidism: Status: Acute Code(s): N25.81 - Secondary hyperparathyroidism of renal origin (4) Anemia: Status: Acute Code(s): D64.9 - Anemia, unspecified Qualifiers: Anemia type: due to chronic kidney disease (5) Benign essential hypertension: Status: Acute Code(s): I10 - Essential (primary) hypertension Plan #Complete fracture of Right proximal tibia and fibula 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 RLE splinted. s/p right suprapatellar intramedullary tibial nail PT/OT On board. Fall precautions. on PO oxycodone, IV morphine prn for pain. #ESRD: on HD TTS. Nephrology on board. Still makes urine #TYpe 2 diabetes mellitus: glipizide and trulicity. ISS. Accuchecks ACHS. A1C is 5.8 #COPD: on breathing treatment with bronchodilators. Not in exacerbation #Chronic anemia due to ESRD. stable. Will monitor Hb today is 7.6. On iron supplementation #DEpression: on zoloft #GERD: on PPI DVT prophylaxis: on eliquis. Disposition: awaiting dc to SNF pending precert. Medications at Discharge Home Medications cholecalciferol (vitamin D3) 25 mcg (1,000 unit) capsule (Vitamin D3) 5,000 unit PO DAILY 10/03/13 omeprazole 20 mg capsule,delayed release 20 mg PO DAILY 08/23/14 glipizide 5 mg tablet 10 mg PO DAILY 04/28/15 labetalol 200 mg tablet 100 mg PO BID 04/28/15 aspirin 81 mg tablet,delayed release (Aspir-Low) 81 mg PO DAILY 05/27/16 melatonin 5 mg capsule 5 mg PO QHS 05/27/16 ferrous sulfate 325 mg (65 mg iron) tablet (Iron (ferrous sulfate)) 325 mg PO DAILY 11/25/16 amitriptyline 100 mg tablet 100 mg PO QHS sleep 09/10/22 atorvastatin 40 mg tablet 40 mg PO QHS hyperlipidemia 09/10/22 calcitriol 0.25 mcg capsule 0.25 mcg PO BID 09/10/22 dulaglutide 1.5 mg/0.5 mL subcutaneous pen injector (Trulicity) 1.5 mg subcut QWEEK diabetes 09/10/22 hydroxyzine HCl 50 mg tablet 50 mg PO Q6H PRN itching 09/10/22 sertraline 50 mg tablet 50 mg PO QHS bipolar 09/10/22 sodium bicarbonate 650 mg tablet 650 mg PO QHS 09/10/22 acetaminophen 325 mg tablet 650 mg (2 x 325 mg) PO Q4H PRN PRN Fever, pain 1-12/09 #0 tabs 09/11/22 docusate sodium 100 mg capsule (DOK) 100 mg PO DAILY #20 CAPSULES 01/15/23 apixaban 2.5 mg tablet (Eliquis) 2.5 mg PO BID #56 tabs 01/29/23 oxycodone 5 mg tablet 5 mg PO Q6H PRN pain 3 days #12 tabs 01/29/23 Hospital Course Operations - (Intramedullary tibial nailing of the right lower extremity.) Procedures Dialysis Summary of Care Provided Minutes Spent on Discharge: 55 Hospital Course: Patient is a 57-year-old female with an extensive past medical history as outlined was admitted through the ED on 01/19/2023 with a complaint of right lower extremity pain after mechanical fall. She was walking out of her house and her leg gave out. She had CT of the right lower extremity in the ED which showed complete fracture through the proximal tibia and fibula and soft tissue edema along the anterior aspect of the proximal calf. Orthopedic surgery was consulted and she had the right lower extremity splinted. She had also had a stress fracture of her right lower extremity back in September 2022. She was admitted and managed for debility due to right tibia and fibula fracture from mechanical fall. Nephrology was consulted to assist patient needed dialysis. The fracture was thought to be pathologic as a result of end-stage renal disease. She had right suprapatella intramedullary tibial nailing done on 01/21/2023. Postop course was not complicated. She was started on p.o. Eliquis 2 point milligram twice daily for DVT prophylaxis. She was skilled for on acute rehab facility. Patient was eventually discharged after a prolonged stay whilst awaiting pre-CERT and was discharged on 01/29/2023. She is follow-up with her primary care doctor and with orthopedic surgery as well as nephrology within 1 to 2 weeks. Patient seen and examined prior to discharge. She felt well. She had an uneventful night. She was having dialysis at time of review. Review of symptoms otherwise negative. Labs and vitals reviewed. Home medication reviewed and reconciled. Physical Exam Const alert, oriented x3, no apparent distress and well nourished General Appearance: cooperative, comfortable and well developed HEENT normocephalic, head/scalp atraumatic, hearing grossly normal bilaterally, moist oral mucous membranes and oropharynx normal Mouth: oral and palatal mucosa normal Eyes PERRL and EOMs intact bilaterally Neck no lymphadenopathy, supple and no JVD Lymph Lymphatic: no lymphadenopathy noted and no lymphedema noted Resp normal respiratory effort, normal air movement and clear to auscultation bilaterally Cardio regular rate, regular rhythm, S1 normal heart sound, S2 normal heart sound and no murmurs GI normal to inspection, nondistended, normoactive bowel sounds, soft to palpation, non-tender and non-distended Extremity normal to inspection, full ROM, normal capillary refill, no clubbing, cyanosis or edema and no calf tenderness Skin Skin Narrative: RLE wrapped in bandage General Skin Exam: no breakdown Neuro CN's II-XII intact bilaterally Coordination / Balance: [id number] test normal Motor Exam: general weakness Psych thought process normal, cooperative and affect normal Appearance: appropriate Weight / BMI Weight Weight: 222 lb Body Mass Index (BMI) 33.7 ABG / Lab / Microbiology Data 01/28/23 05:50 01/27/23 05:20 Laboratory: Laboratory Results - last 24 hr 01/28/23 16:13: POC Glucose 165 H 01/28/23 21:56: POC Glucose 211 H 01/29/23 06:12: POC Glucose 118 H 01/29/23 11:57: POC Glucose 153 H Microbiology: Microbiology 01/29/23 10:45 Nasal Secretion SARS-CoV-2 Antigen (Rapid) - Final D/C Instructions Discharge Diet: No restrictions Weight Bearing Status: Weight bearing as tolerated Call your doctor if you observe: Fever of 101 or Higher, Shortness of breath, Dizziness, Swelling in the ankles and Chest pain Meaningful Use Info Meaningful Use Diagnoses (Choose all that apply): None applicable Discharge Plan Admission Admit Date/Time: 01/19/23 13:44 Primary Reason for Your Visit: fracture of right tibia and fibula Attending Provider: Carolina Caba Primary Care Provider: Aki Archibald Consulting Providers: Deshawn Tucker; Sofía Hill; Mone Riggs; Branden Banks Instructions Patient Instructions: Having Tibia/Fibula Fracture ... Discharge Orders/Prescriptions Prescriptions: New Eliquis 2.5 mg tablet 2.5 mg PO BID Qty: 56 0RF oxycodone 5 mg tablet 5 mg PO Q6H PRN (Reason: pain) 3 Days Qty: 12 0RF Continued cholecalciferol (vitamin D3) [Vitamin D3] 1,000 UNIT capsule 5,000 unit PO DAILY omeprazole 20 MG capsule 20 mg PO DAILY labetalol 200 MG tablet 100 mg PO BID glipizide 5 MG tablet 10 mg PO DAILY aspirin [Aspir-Low] 81 MG tablet,delayed release (DR/EC) 81 mg PO DAILY melatonin 5 MG capsule 5 mg PO QHS ferrous sulfate [Iron (ferrous sulfate)] 325 MG tablet 325 mg PO DAILY atorvastatin 40 mg tablet 40 mg PO QHS calcitriol 0.25 mcg capsule 0.25 mcg PO BID Trulicity 1.5 mg/0.5 mL pen injector 1.5 mg SUBCUT QWEEK sodium bicarbonate 650 mg tablet 650 mg PO QHS sertraline 50 mg tablet 50 mg PO QHS hydroxyzine HCl 50 mg tablet 50 mg PO Q6H PRN (Reason: itching) amitriptyline 100 mg tablet 100 mg PO QHS acetaminophen 325 mg Tablet 650 mg PO Q4H PRN PRN (Reason: Fever, pain 1-12/09) Qty: 0 0RF docusate sodium [DOK] 100 mg capsule 100 mg PO DAILY Qty: 20 0RF Discontinued oxycodone 5 mg tablet 5 mg PO Q8H PRN (Reason: pain) 3 Days Qty: 10 0RF Referrals / Follow Up: Sofía Hill MD [Med Staff - Consulting] - Within 2 Weeks Deshawn Tucker MD [Med Staff - Active Staff] - Within 2 Weeks Aki Archibald MD [Primary Care Provider] - Within 1 Week Disposition Disposition (needs filled in before D/C Order can be placed): [facility] Charges/Coding Visit Charges Inpatient E&M: 90017 Disch Hosp >30min
== END 2023-01-29 14:06 | disposition skilled nursing facility (03) | DRG 492 ==
LOC: ED 07:25 → PCU 15:47
PROVIDERS: Anesthesiology; Internal Medicine; Internal Medicine Nephrology; Specialist; Admitting Provider Internal Medicine; Emergency Provider Student in an Organized Health Care Education/Training Program; PCP Family Medicine; Visit Provider Student in an Organized Health Care Education/Training Program
PROC: 0QSG36Z Reposition Right Tibia with Intramedullary Internal Fixation Device, Percutaneous Approach (ICD-10-PCS; principal; 2023-01-21 13:25)
DX: M84.661A Pathological fracture in other disease, right tibia, initial encounter for fracture (principal); N18.6 End stage renal disease; I12.0 Hypertensive chronic kidney disease with stage 5 chronic kidney disease or end stage renal disease; N25.81 Secondary hyperparathyroidism of renal origin; D63.1 Anemia in chronic kidney disease; E83.51 Hypocalcemia; E11.22 Type 2 diabetes mellitus with diabetic chronic kidney disease; J44.9 Chronic obstructive pulmonary disease, unspecified; F31.9 Bipolar disorder, unspecified; E11.40 Type 2 diabetes mellitus with diabetic neuropathy, unspecified; Z99.2 Dependence on renal dialysis; M84.663 Pathological fracture in other disease, right fibula; K21.9 Gastro-esophageal reflux disease without esophagitis; E78.5 Hyperlipidemia, unspecified; M79.7 Fibromyalgia; M17.11 Unilateral primary osteoarthritis, right knee; E87.5 Hyperkalemia; W18.30XA Fall on same level, unspecified, initial encounter; K59.00 Constipation, unspecified; E66.9 Obesity, unspecified; R53.81 Other malaise; Y93.01 Activity, walking, marching and hiking; Y92.019 Unspecified place in single-family (private) house as the place of occurrence of the external cause; Z68.36 Body mass index [BMI] 36.0-36.9, adult; Z79.82 Long term (current) use of aspirin; Z79.84 Long term (current) use of oral hypoglycemic drugs; Z79.899 Other long term (current) drug therapy; Z87.891 Personal history of nicotine dependence; Z98.84 Bariatric surgery status
CPT/HCPCS: 36415; 72170; 73552; 73560; 73590; 73620; 73700; 76000; 80048; 80069; 82306; 82607; 82728; 82962; 83036; 83540; 83550; 83735; 83970; 84100; 84132; 84443; 85025; 85027; 85045; 85730; 87811; 90937; 93005; 94668; 97110; 97162; 97166; 97530; 97535; 99283; C1713; J7030; J7040; A4216; G0257; J0612; J1940; J2405; Q5106

== ENCOUNTER 2023-02-04 09:48 | Emergency (ER) | payer BC, SELFPAY ==
[2023-02-04 09:49] VITALS: BP 114/49; PULSE 97; RESP 16; TEMP 36.2; O2SAT 90; BMI 31.6
[2023-02-04 10:36] LABS: Absolute Lymphocyte Count 1.39 X10^3/uL (0.83-4.51); Absolute Neutrophil Count 4.8 X10^3/uL (2.0-7.7); Basophil# 0.05 X10^3/uL; Basophil% 0.7 % (0-1); Eosinophil# 0.17 X10^3/uL; Eosinophils% 2.4 % (0-5); Hematocrit 24.9 % (37-47); Hemoglobin 7.3 g/dL (12.0-15.0); Lymphocyte # 1.39 X10^3/ul (0.83-4.51); Lymphocyte % 19.9 % (19-41); Mean Corp Hgb Conc 29.3 g/dL (32-36); Mean Corpuscular Hgb 29.7 pg (27.0-32.0); Mean Corpuscular Volume 101.2 fL (81-99); Mean Platelet Vol. 8.6 fl (6.2-12.0); Monocyte# 0.46 X10^3/uL; Monocyte% 6.6 % (0-10); NRBC Flagged by Analyzer 0 % (0-5); Neutrophil # 4.82 X10^3/uL (2.7-7.7); Platelet Count 247 K/mm3 (150-450); RBC Distribution Width CV 15.2 % (11.6-14.6); RBC Distribution Width SD 53.5 fl (35.1-43.9); Red Blood Count 2.46 M/mm3 (4.2-5.4)
[2023-02-04] MEDS: Acetaminophen 500 MG Tablet 1000 MG PO (10:42)
[2023-02-04 10:57] LABS: Anion Gap 8 (5-15); BUN 17 mg/dL (7-18); BUN/Creat Ratio 5.2 RATIO (10-20); Calcium,Total 7.9 mg/dL (8.5-10.1); Chloride 98 mmol/L (98-107); Creatinine, Serum 3.26 mg/dL (0.55-1.02); EST Glomerular Filtration Rate 16 mL/min (>60); Est Glom Filt Rate - Afr Amer 19 mL/min (>60); Estimated Creatinine Clearance 19.21 ml/min; Glucose 310 mg/dL (74-106); Potassium 3.9 mmol/L (3.5-5.1); Sodium Level 136 mmol/L (136-145)
--- NOTE | 2023-02-04 11:28 | EX.ED.DYSGE1 ---
HPI History of Present Illness Chief Complaint: Abn Labs Informant: patient Narrative Narrative: 57-year-old female on dialysis and Eliquis presenting to the emergency room with anemia. Patient was found to have a hemoglobin 6.9 on outpatient labs drawn at rehab facility. Patient states she gets dialysis Thursday. She states that on 21 January she underwent surgery for a broken right leg. Dr. Tucker was her surgeon and she is scheduled to see him tomorrow for possible stitch removal. She denies any fevers. She denies any black or bloody stools. She has had to have blood transfusions in the past. She states she was given injections from nephrology to help improve her anemia. She states she has also been taking iron therapy. No syncope. She states she has been weaning her oxycodone and is now down to mostly Tylenol. [facility] Medical History Anemia Anxiety and depression Asthma Benign essential hypertension Bipolar disorder Chronic anemia COPD with asthma Diabetes Diabetes mellitus, type 2 Dialysis patient DVT (deep venous thrombosis) ESRD (end stage renal disease) on dialysis Fibromyalgia Former smoker Former tobacco use Fracture of fibula, right, closed Fracture of right lower extremity GERD (gastroesophageal reflux disease) History of asthma History of bipolar disorder History of COPD History of diabetes mellitus, type II History of tobacco use HLD (hyperlipidemia) HTN (hypertension) Hyperkalemia Inability to walk Kidney disease Kidney disease, chronic, stage IV (GFR 15-29 ml/min) Neuropathy Obesity Osteoarthritis of right knee Pathological fracture, right tibia, initial encounter for fracture Sleep apnea Home Medications cholecalciferol (vitamin D3) 25 mcg (1,000 unit) capsule (Vitamin D3) 5,000 unit PO DAILY SUPPLEMENT 10/03/13 [History Last Taken 01/18/23] omeprazole 20 mg capsule,delayed release 20 mg PO DAILY 08/23/14 [History Last Taken 01/18/23] glipizide 5 mg tablet 10 mg PO DAILY DIABETES 04/28/15 [History Last Taken 01/18/23] melatonin 5 mg capsule 5 mg PO QHS 05/27/16 [History Last Taken 01/18/23] ferrous sulfate 325 mg (65 mg iron) tablet (Iron (ferrous sulfate)) 325 mg PO DAILY SUPPLEMENT 11/25/16 [History Last Taken 01/18/23] amitriptyline 100 mg tablet 100 mg PO QHS DEPRESSION 09/10/22 [History Last Taken 01/18/23] atorvastatin 40 mg tablet 40 mg PO QHS CHOLESTEROL 09/10/22 [History Last Taken 01/18/23] calcitriol 0.25 mcg capsule 0.25 mcg PO BID 09/10/22 [History Last Taken 01/18/23] dulaglutide 1.5 mg/0.5 mL subcutaneous pen injector (Trulicity) 1.5 mg subcut CORNELL DIABETES 09/10/22 [History Last Taken 01/18/23] sodium bicarbonate 650 mg tablet 650 mg PO QHS 09/10/22 [History Last Taken 01/18/23] docusate sodium 100 mg capsule (DOK) 100 mg PO DAILY STOOL SOFTENER #20 CAPSULES 01/15/23 [Rx Last Taken Unknown] apixaban 2.5 mg tablet (Eliquis) 2.5 mg PO BID BLOOD THINNER #56 tabs 01/29/23 [Rx Last Taken Unknown] labetalol 100 mg tablet 100 mg PO BID blood pressure 02/04/23 [History Last Taken Unknown] sevelamer carbonate 800 mg tablet 1,600 mg PO TID 02/04/23 [History Last Taken Unknown] Allergy/AdvReac Type Severity Reaction Status Date / Time webster carin Allergy Unknown UNKNOWN Verified 02/04/23 09:51 mold Allergy Unknown unknown Verified 02/04/23 09:51 lisinopril Allergy unknown Verified 02/04/23 09:51 Penicillins Allergy Anaphylaxis Verified 02/04/23 09:51 tetracycline [Tetracycline] Allergy Anaphylaxis Verified 02/04/23 09:51 codeine AdvReac Abd Verified 02/04/23 09:51 cramps/diarrhea diphenhydramine HCl AdvReac Upset Verified 02/04/23 09:51 [From Benadryl] Stomach hydrocodone bitartrate AdvReac Abd Verified 02/04/23 09:51 [From Vicodin] cramps/diarrhea NSAIDS (Non-Steroidal AdvReac Unknown Verified 02/04/23 09:51 Anti-Inflamma Family History Mother Heart disease Hypertension Diabetes Kidney disease Father Diabetes Surgical History H/O gastric bypass H/O vascular surgery History of appendectomy History of cholecystectomy S/P appendectomy S/P cholecystectomy Social History household members: none Smoking Status: Former smoker how long ago did patient quit smoking: Quit age 24. alcohol intake: never substance use type: does not use ROS ROS ED Constitutional Constitutional ED: Denies chills, fever(s) or weight loss Eyes Eyes: Denies change in vision or diplopia ENT ENT ED: Denies ear pain, rhinorrhea or sore throat Cardiovascular Cardiovascular: Denies chest pain, orthopnea, palpitations or racing heartbeat Respiratory/Chest Respiratory/Chest: Denies cough, dyspnea or orthopnea Gastrointestinal Gastrointestinal: Denies abdominal pain, diarrhea, nausea or vomiting Genitourinary Genitourinary ED: Denies dysuria, hematuria or urinary frequency Musculoskeletal Musculoskeletal: Reports other Details: Status post ORIF right tibia. ; Denies arthralgias or myalgias Integumentary Denies abscess or rash Neurologic Neurologic: Denies headache(s) or weakness Psychiatric Psychiatric: Denies anxiety, depression, suicidal ideation or suicidal thoughts Endocrine Endocrinology: Denies polydipsia, polyphagia or polyuria Allergic/Immunologic Allergic/Immunologic ED: Denies mouth swelling, tongue swelling or urticaria EXAM Physical Exam Const Vital Signs: 02/04/23 09:49 02/04/23 10:52 Temperature 97.2 F L Temperature Source Temporal Pulse Rate 97 Respiratory Rate 16 Respiratory Effort Normal Non-Labored Respiratory Pattern Normal Blood Pressure 114/49 L Blood Pressure Mean 70 Pulse Ox 90 Oxygen Delivery Method Room Air Positive well nourished and well developed General Appearance ED: well developed HEENT Reports normocephalic, head/scalp atraumatic and moist mucous membranes Eyes PERRL and EOMs intact bilaterally Neck no lymphadenopathy, supple and no JVD Resp normal respiratory effort and clear to auscultation bilaterally Cardio regular rate, regular rhythm and no murmurs GI normal to inspection, nondistended, normoactive bowel sounds and non-tender Palpation: soft Back/Spine no CVA tenderness and normal ROM Extremity Extremity Narrative: The surgical wounds on the right knee and distal leg appear clean dry intact. They seem to be healing appropriately. I do not see evidence of dehiscence or secondary infection. There is some ecchymosis and mild swelling of the calf. However the calf is nontender. No palpable cords. General Extremety ED: Negative for edema General Extremity: Negative for edema Neuro oriented x3 and CN's II-XII intact bilaterally Sensorium / Orientation: alert Motor Exam: strength 5/5 throughout Psych mental status grossly normal Mood & Affect: Negative for depressed or tearful Skin no rashes or lesions noted and no wounds MDM MDM MDM Narrative Medical decision making narrative: Hemoglobin drawn here 7.3. MCV 101.2. Creatinine 3.26 glucose 310. Patient was typed and crossed for 1 unit Prior hemoglobins were reviewed. Patient's discharge hemoglobin was 7.6 on 29 January. I spoke with Dr. Hassan from orthopedics who is covering Dr. Tucker. Dr. Tucker reports that we are able to take her out of the splint. As long as the incisions appear well we can remove the stitches. Patient received a dose of Tylenol. The stitches were removed without difficulty. Wounds were cleansed and dressed by nursing. This appears to be acute on chronic anemia but appears to be asymptomatic. Patient has developed antibodies according to blood bank and it may be 6+ hours till we are able to get blood. There is high risk of hemolytic anemia. I spoke with the patient. As she is otherwise asymptomatic with no known heart disease plan will be to discharge with continued monitoring rather than risk potential complications of transfusion. History & Record Review Discussion w/independent historian: Patient Additional record(s) reviewed:: Prior inpatient record, Prior outpatient record, Prior ED visit and Prior labs Lab Data Attestation: I reviewed the patient's lab results. Labs: Laboratory Results - last 24 hr 02/04/23 10:14 WBC 7.0 RBC 2.46 L Hgb 7.3 L Hct 24.9 L MCV 101.2 H MCH 29.7 MCHC 29.3 L RDW Std Deviation 53.5 H RDW Coeff of Ben 15.2 H Plt Count 247 MPV 8.6 Immature Gran % (Auto) 1.400 H Neut % (Auto) 69.0 Lymph % (Auto) 19.9 [place] % (Auto) 6.6 Eos % (Auto) 2.4 Baso % (Auto) 0.7 Absolute Neuts (auto) 4.8 Absolute Lymphs (auto) 1.39 Nucleated RBC % 0 Sodium 136 Potassium 3.9 Chloride 98 Carbon Dioxide 30.0 Anion Gap 8 BUN 17 Creatinine 3.26 H Estim Creat Clear Calc 19.21 Est GFR (MDRD) Af Amer 19 L Est GFR (MDRD) Non-Af 16 L BUN/Creatinine Ratio 5.2 L Glucose 310 H Calcium 7.9 L Blood Type A POSITIVE Antibody Screen POSITIVE Discharge Plan Triage Chief Complaint: Abn Labs ED Provider: Neymar Toledo Dx/Rx/DC Orders Clinical Impression: Encounter for postoperative wound check, Acute on chronic anemia, End stage renal disease on dialysis Instructions: Anemia and Kidney Disease Prescriptions: No Action cholecalciferol (vitamin D3) [Vitamin D3] 1,000 UNIT capsule 5,000 unit PO DAILY omeprazole 20 MG capsule 20 mg PO DAILY glipizide 5 MG tablet 10 mg PO DAILY melatonin 5 MG capsule 5 mg PO QHS ferrous sulfate [Iron (ferrous sulfate)] 325 MG tablet 325 mg PO DAILY atorvastatin 40 mg tablet 40 mg PO QHS calcitriol 0.25 mcg capsule 0.25 mcg PO BID Trulicity 1.5 mg/0.5 mL pen injector 1.5 mg SUBCUT CORNELL Patient Comments: PT STATED HASNT USED IN TWO WEEKS sodium bicarbonate 650 mg tablet 650 mg PO QHS sertraline 50 mg tablet 50 mg PO QHS hydroxyzine HCl 50 mg tablet 50 mg PO Q6H PRN (Reason: itching) amitriptyline 100 mg tablet 100 mg PO QHS docusate sodium [DOK] 100 mg capsule 100 mg PO DAILY Qty: 20 0RF Eliquis 2.5 mg tablet 2.5 mg PO BID Qty: 56 0RF oxycodone 5 mg tablet 5 mg PO Q6H PRN (Reason: pain) 3 Days Qty: 12 0RF sevelamer carbonate 800 mg tablet 1,600 mg PO TID labetalol 100 mg tablet 100 mg PO BID Primary Care Provider: Aki Archibald Referrals: Aki Archibald MD [Primary Care Provider] - Activity Restrictions/Additional Instructions: Continue to work with nephrology with your anemia. Disposition Disposition: Home, Self Care
[2023-02-04 12:12] VITALS: RESP 14
== END 2023-02-04 12:30 | disposition home or self-care (01) ==
PROVIDERS: Emergency Provider Emergency Medicine; PCP Family Medicine; Referring Provider Emergency Medicine; Visit Provider Emergency Medicine
DX: D64.9 Anemia, unspecified (principal); Z99.2 Dependence on renal dialysis; J44.9 Chronic obstructive pulmonary disease, unspecified; E11.40 Type 2 diabetes mellitus with diabetic neuropathy, unspecified; E11.22 Type 2 diabetes mellitus with diabetic chronic kidney disease; I12.0 Hypertensive chronic kidney disease with stage 5 chronic kidney disease or end stage renal disease; N18.6 End stage renal disease; Z51.89 Encounter for other specified aftercare; E78.5 Hyperlipidemia, unspecified; Z87.891 Personal history of nicotine dependence; Z79.01 Long term (current) use of anticoagulants
CPT/HCPCS: 80048; 85025; 86850; 86870; 86900; 86901; 86905; 99283; A4216

== ENCOUNTER 2023-03-09 09:32 | Emergency (ER) | payer BC, MEDICAID, SELFPAY ==
[2023-03-09 09:34] VITALS: BP 172/78; PULSE 102; RESP 20; TEMP 36.6; O2SAT 100; BMI 34.9
[2023-03-09 09:37] VITALS: O2SAT 100
--- NOTE | 2023-03-09 09:51 | RAD_ITS ---
INDICATION: fall EXAMINATION/TECHNIQUE: X-RAY - RIGHT XR Knee Complete 4 Views or More 4 VIEWS COMPARISON: Prior study dated: 01/19/2023 FINDINGS: SOFT TISSUES: No soft tissue swelling or gas. Vascular calcifications. BONES/JOINTS: Intramedullary gianna in the tibial shaft securing previously seen fracture of the proximal tibia. Callus formation is seen. Healing fracture of the proximal fibula. No evidence of dislocation. Joint effusion is seen. RAD/Knee 4 or More Views IMPRESSION: Status post open reduction internal fixation of fractured proximal tibia with intramedullary gianna. Healing fractures of the proximal tibia and fibula. Electronically Signed: Cong Stallworth MD at 10:37 EST ,
--- NOTE | 2023-03-09 09:51 | RAD_ITS ---
INDICATION: fall EXAMINATION/TECHNIQUE: X-RAY - RIGHT XR Foot Min 3 Views 3 VIEWS COMPARISON: No relevant prior comparison study available FINDINGS: SOFT TISSUES: No soft tissue swelling or gas. No radiopaque foreign body. BONES/JOINTS: No acute fracture or subluxation.. Demineralization of the osseous structures. No erosive changes are seen. Partially visualized intramedullary gianna in the distal tibia. No sclerotic or destructive changes observed. RAD/Foot min 3 Views IMPRESSION: No evidence of acute fracture. Electronically Signed: Cong Stallworth MD at 10:30 EST ,
--- NOTE | 2023-03-09 09:51 | RAD_ITS ---
INDICATION: fall EXAMINATION/TECHNIQUE: X-RAY - RIGHT XR Tibia/Fibula 2 Views 2 VIEWS COMPARISON: Prior study dated: 01/21/2023 FINDINGS: SOFT TISSUES: No soft tissue swelling or gas. No radiopaque foreign body. BONES/JOINTS: Intramedullary gianna in the tibia shaft is again seen. Widening of the fracture site since the previous exam however there is callus formation. Healing fracture of the proximal fibula. No evidence of dislocation. No sclerotic or destructive changes observed. RAD/Tibia & Fibula 2 Views IMPRESSION: Status post open reduction internal fixation of the proximal tibia as described above. No new fracture is seen. Electronically Signed: Cong Stallworth MD at 10:40 EST ,
--- NOTE | 2023-03-09 09:52 | EDS_ITS ---
HPI HPI - Fall History of Present Illness Chief Complaint: Fall Detail of Chief Complaint: Falls times 2 today at home with right knee and lower leg pain. Informant: patient Occured/Mechanism Occurred: Today Mechanism/Context: Yes same level fall Pain/Injury Pain Location: lower extremity Quality of Pain: Dull and Aching Current Severity: Mild Associated Symptoms Associated Symptoms: Negative for Parasthesias, Weakness, Loss of function, Inability to ambulate, Loss of consciousness or Amnesia Narrative Narrative: 57-year-old female extensive past medical history of end-stage renal disease dialysis, COPD, diabetes and hypertension. Had falls in December and needed at tibia gianna placed on the right. She was discharged from the hospital in January went to extended-care facility and recently has been back home. Today she fell x 2 at home injuring her right lower leg again. Denies hitting her head. No LOC. No blood thinners besides aspirin. Denies recent illness. Prior similar symptoms: Yes Recent Illness/Hospitalization: Yes PFSH PFS Medical History Anemia Anxiety and depression Asthma Benign essential hypertension Bipolar disorder Chronic anemia COPD with asthma Diabetes Diabetes mellitus, type 2 Dialysis patient DVT (deep venous thrombosis) ESRD (end stage renal disease) on dialysis Fibromyalgia Former smoker Former tobacco use Fracture of fibula, right, closed Fracture of right lower extremity GERD (gastroesophageal reflux disease) History of asthma History of bipolar disorder History of COPD History of diabetes mellitus, type II History of tobacco use HLD (hyperlipidemia) HTN (hypertension) Hyperkalemia Inability to walk Kidney disease Kidney disease, chronic, stage IV (GFR 15-29 ml/min) Neuropathy Obesity Osteoarthritis of right knee Pathological fracture, right tibia, initial encounter for fracture Sleep apnea Home Medications cholecalciferol (vitamin D3) 25 mcg (1,000 unit) capsule (Vitamin D3) 5,000 unit PO DAILY SUPPLEMENT 10/03/13 [History Last Taken 01/18/23] omeprazole 20 mg capsule,delayed release 20 mg PO DAILY 08/23/14 [History Last Taken 01/18/23] glipizide 5 mg tablet 10 mg PO DAILY DIABETES 04/28/15 [History Last Taken 01/18/23] melatonin 5 mg capsule 5 mg PO QHS 05/27/16 [History Last Taken 01/18/23] ferrous sulfate 325 mg (65 mg iron) tablet (Iron (ferrous sulfate)) 325 mg PO DAILY SUPPLEMENT 11/25/16 [History Last Taken 01/18/23] amitriptyline 100 mg tablet 100 mg PO QHS DEPRESSION 09/10/22 [History Last Taken 01/18/23] atorvastatin 40 mg tablet 40 mg PO QHS CHOLESTEROL 09/10/22 [History Last Taken 01/18/23] calcitriol 0.25 mcg capsule 0.25 mcg PO BID 09/10/22 [History Last Taken 01/18/23] dulaglutide 1.5 mg/0.5 mL subcutaneous pen injector (Trulicity) 1.5 mg subcut CORNELL DIABETES 09/10/22 [History Last Taken 01/18/23] sodium bicarbonate 650 mg tablet 650 mg PO QHS 09/10/22 [History Last Taken 01/18/23] docusate sodium 100 mg capsule (DOK) 100 mg PO DAILY STOOL SOFTENER #20 CAPSULES 01/15/23 [Rx Last Taken Unknown] apixaban 2.5 mg tablet (Eliquis) 2.5 mg PO BID BLOOD THINNER #56 tabs 01/29/23 [Rx Last Taken Unknown] labetalol 100 mg tablet 100 mg PO BID blood pressure 02/04/23 [History Last Taken Unknown] sevelamer carbonate 800 mg tablet 1,600 mg PO TID 02/04/23 [History Last Taken Unknown] oxycodone 5 mg tablet 5 mg PO Q6H PRN pain 5 days #10 tabs 03/05/23 [Rx Last Taken Unknown] Allergy/AdvReac Type Severity Reaction Status Date / Time [facility] Allergy Unknown UNKNOWN Verified 03/09/23 09:33 mold Allergy Unknown unknown Verified 03/09/23 09:33 lisinopril Allergy unknown Verified 03/09/23 09:33 Penicillins Allergy Anaphylaxis Verified 03/09/23 09:33 tetracycline [Tetracycline] Allergy Anaphylaxis Verified 03/09/23 09:33 codeine AdvReac Abd Verified 03/09/23 09:33 cramps/diarrhea diphenhydramine HCl AdvReac Upset Verified 03/09/23 09:33 [From Benadryl] Stomach hydrocodone bitartrate AdvReac Abd Verified 03/09/23 09:33 [From Vicodin] cramps/diarrhea NSAIDS (Non-Steroidal AdvReac Unknown Verified 03/09/23 09:33 Anti-Inflamma Family History Mother Heart disease Hypertension Diabetes Kidney disease Father Diabetes Surgical History H/O gastric bypass H/O vascular surgery History of appendectomy History of cholecystectomy S/P appendectomy S/P cholecystectomy Social History household members: none Smoking Status: Former smoker how long ago did patient quit smoking: Quit age 24. alcohol intake: never substance use type: does not use ROS ROS ED ROS Narrative Denies recent illness. Review of Systems ROS Unobtainable: Denies due to encephalopathy Constitutional Constitutional ED: Denies chills or fever(s) Eyes Eyes: Denies blurry vision ENT ENT ED: Denies ear pain Respiratory/Chest Respiratory/Chest: Denies cough or dyspnea Gastrointestinal Gastrointestinal: Denies abdominal pain Genitourinary Genitourinary ED: Denies dysuria or hematuria Musculoskeletal Musculoskeletal: Denies arthralgias Integumentary Denies abscess Neurologic Neurologic: Denies headache(s) Psychiatric Psychiatric: Denies anxiety or depression Endocrine Endocrinology: Denies polydipsia Hematologic/Lymphatic Hematologic/Lymphatic: Denies easy bleeding or easy bruising Allergic/Immunologic Allergic/Immunologic ED: Denies mouth swelling, tongue swelling or urticaria EXAM Physical Exam Narrative Exam Narrative: Well-appearing 57-year-old female. Vital signs are stable afebrile. Pulse ox 100% on room air no signs hypoxia. No distress. Sitting upright in bed. H EENT exam unremarkable. Atraumatic. Pupils round reactive to light. No signs of trauma to her face or scalp. Nontender. Neck nontender trachea midline. Lungs clear to auscultation. Heart regular rhythm rate about 100 no murmur. Chest wall and ribs nontender. Abdomen soft nontender. Pelvic girdle intact. Back nontender no bruising. Ribs nontender. There is no shortening or rotation either hip. She can flex and extend both knees. She has had prior surgeries on both knees well-healed incisions. She has tenderness to the right knee, tib-fib ankle and foot. She is able to do dorsi and plantarflexion. There is mild swelling. Left lower extremity is nontender there is a small bruise at the proximal tibia medially. But no deformity. No significant tenderness. Neurologically she is awake and alert with no focal motor deficits. Answering questions and following commands. Const Vital Signs: 03/09/23 09:34 03/09/23 09:37 Temperature 97.9 F Temperature Source Oral Pulse Rate 102 H Respiratory Rate 20 H Respiratory Effort Normal Non-Labored Respiratory Depth Normal Respiratory Pattern Normal Blood Pressure 172/78 H Blood Pressure Mean 109 Pulse Ox 100 100 Oxygen Delivery Method Room Air Room Air Positive well nourished and well developed; Negative for cachectic, contractures or unkempt General Appearance ED: well developed and NAD; Negative for unkempt, cachectic or contractures Nutritional Appearance: Negative for cachectic HEENT Reports normocephalic atraumatic; Negative for trauma, contusion, hematoma or tenderness Eyes PERRL and EOMs intact bilaterally General Eye ED: Negative for pale conjunctiva or scleral icterus Neck full ROM, no lymphadenopathy and supple General: Negative for tenderness Chest Wall inspection of chest normal and palpation of chest normal Chest: Negative for other Resp normal respiratory effort, no retractions and clear to auscultation bilaterally Effort and Inspection: Negative for pain with movement Auscultation: Negative for rales, rhonchi or wheezes Cardio regular rate, regular rhythm, S1 normal heart sound, S2 normal heart sound and no murmurs Rate: Negative for bradycardia or tachycardic Rhythm: Negative for abnormal rhythm Bruits: Negative for other GI non-tender, non-distended and no masses Inspection: Negative for abdominal distention Auscultation: normoactive bowel sounds Palpation: soft; Negative for guarding Back/Spine no CVA tenderness General Back: Negative for CVA tenderness Cervical Spine: Negative for cervical spine tenderness Thoracic Spine / Upper Back: Negative for ROM limited or pain with ROM Lumbar Spine / Lower Back: Negative for lumbar spinal tenderness or paraspinal muscle tenderness Neuro oriented x3, CN's II-XII intact bilaterally, moves all extremities and no focal motor deficits Jacklyn Coma Scale: document GCS findings Spontaneous Obeys Commands Oriented 15 Sensorium / Orientation: alert, oriented to person, oriented to place and oriented to time; Negative for orientation impaired, confused, lethargic or stuporous Motor Exam: strength 5/5 throughout Psych mental status grossly normal and thought process normal Appearance: Negative for unkempt Attitude: No agitated Mood & Affect: Negative for depressed, anxious or tearful Skin General Skin Exam: Negative for other Lesions: no lesions Rashes: no rashes Trauma: Negative for abrasion MDM MDM MDM Narrative Medical decision making narrative: 57-year-old female with complex past medical and surgical history fell x 2 today at home. Recent surgical repair of her right lower leg due to tib-fib fractures. Reportedly has some complications with the hardware for which she recently saw her orthopedic surgeon Dr. Zenon Tucker. X-rays today have been taken of her right knee, tib-fib and right foot. She wanted the Naprosyn for pain. Exam at 10:45 AM unchanged. We went over her x-ray results which were unremarkable. History & Record Review Discussion w/independent historian: Patient Additional record(s) reviewed:: Prior inpatient record, Prior outpatient record, Prior ED visit and Prior labs Radiography Diagnostic Testing: Clinical Impression(s) from Imaging Studies Foot X-Ray 03/09/23 09:51 IMPRESSION: No evidence of acute fracture. Electronically Signed: Cong Stallworth MD at 10:30 EST Reading Location ID and State: [facility] / [place] Tel , Service support , Knee X-Ray 03/09/23 09:51 IMPRESSION: Status post open reduction internal fixation of fractured proximal tibia with intramedullary gianna. Healing fractures of the proximal tibia and fibula. Electronically Signed: Cong Stallworth MD at 10:37 EST Reading Location ID and State: [facility] / [place] Tel , Service support , Tibia/Fibula X-Ray 03/09/23 09:51 IMPRESSION: Status post open reduction internal fixation of the proximal tibia as described above. No new fracture is seen. Electronically Signed: Cong Satllworth MD at 10:40 EST , Knee x-ray, 4 views, interpreted by myself and the radiologist shows no acute abnormality. Ealing fractures of the proximal tibia. Healing fracture proximal fibula. Tibial gianna. No acute abnormality. Right tib-fib x-ray 2 views interpreted by myself and the radiologist shows healing fractures of the proximal tibia and fibula. Tibial gianna. No acute fracture today. Right foot x-ray 3 views interpreted by myself and the radiologist. Shows no acute fracture. Osteoporosis. Chronic changes. Discharge Plan Triage Chief Complaint: Fall ED Provider: Johnathon Robertson Dx/Rx/DC Orders Clinical Impression: History of tibial fracture, History of end stage renal disease, History of diabetes mellitus, Fall, Contusion of leg, right Instructions: ED Soft Tissue Contusion Prescriptions: No Action cholecalciferol (vitamin D3) [Vitamin D3] 1,000 UNIT capsule 5,000 unit PO DAILY omeprazole 20 MG capsule 20 mg PO DAILY glipizide 5 MG tablet 10 mg PO DAILY melatonin 5 MG capsule 5 mg PO QHS ferrous sulfate [Iron (ferrous sulfate)] 325 MG tablet 325 mg PO DAILY atorvastatin 40 mg tablet 40 mg PO QHS calcitriol 0.25 mcg capsule 0.25 mcg PO BID Trulicity 1.5 mg/0.5 mL pen injector 1.5 mg SUBCUT CORNELL Patient Comments: PT STATED HASNT USED IN TWO WEEKS sodium bicarbonate 650 mg tablet 650 mg PO QHS amitriptyline 100 mg tablet 100 mg PO QHS docusate sodium [DOK] 100 mg capsule 100 mg PO DAILY Qty: 20 0RF Eliquis 2.5 mg tablet 2.5 mg PO BID Qty: 56 0RF sevelamer carbonate 800 mg tablet 1,600 mg PO TID labetalol 100 mg tablet 100 mg PO BID oxycodone 5 mg tablet 5 mg PO Q6H PRN (Reason: pain) 5 Days Qty: 10 0RF Primary Care Provider: Aki Archibald Referrals: Deshawn Tucker MD [Med Staff - Active Staff] - As Needed Aki Archibald MD [Primary Care Provider] - As Needed Activity Restrictions/Additional Instructions: Ice to all sore areas. Tylenol Motrin for pain. Your x-rays today showed no new injuries. Healing fractures of your tibia and fibula. Follow-up with your doctors as needed. Disposition Disposition: Home, Self Care
[2023-03-09] MEDS: Naproxen 375 MG Tablet PO (10:30)
== END 2023-03-09 10:55 | disposition home or self-care (01) ==
PROVIDERS: Emergency Provider Emergency Medicine; PCP Family Medicine; Visit Provider Emergency Medicine
DX: S80.11XA Contusion of right lower leg, initial encounter (principal); Z99.2 Dependence on renal dialysis; J44.9 Chronic obstructive pulmonary disease, unspecified; E11.40 Type 2 diabetes mellitus with diabetic neuropathy, unspecified; E11.22 Type 2 diabetes mellitus with diabetic chronic kidney disease; I12.0 Hypertensive chronic kidney disease with stage 5 chronic kidney disease or end stage renal disease; N18.6 End stage renal disease; Z87.891 Personal history of nicotine dependence; Z87.81 Personal history of (healed) traumatic fracture; W18.30XA Fall on same level, unspecified, initial encounter
CPT/HCPCS: 73564; 73590; 73630; 99282

== ENCOUNTER 2023-06-04 10:08 | Emergency (ER) | payer BC, MEDICAID, SELFPAY ==
[2023-06-04 10:08] VITALS: BP 159/68; PULSE 94; RESP 14; TEMP 36.6; O2SAT 98
--- NOTE | 2023-06-04 10:22 | RAD_ITS ---
STUDY: X-RAY - RIGHT TIBIA AND FIBULA REASON FOR EXAM: Female, 58 years old. Pain following a recent fall. TECHNIQUE: 3 view(s) of the tibia and fibula were obtained. COMPARISON: Comparison is made with prior study dated March 09, 2023. FINDINGS: The patient is status post intramedullary gianna and screw fixation of the proximal metaphyseal tibial fracture. Since prior study, there has been further bony callus formation. The alignment is maintained. Healing proximal fibular fracture. The soft tissue structures are unremarkable. RAD/Tibia & Fibula 2 Views IMPRESSION: Status post intramedullary gianna fixation of the proximal tibial metaphyseal fracture with a further callus formation. Healing fracture of the proximal fibula. Electronically Signed: Piter Dietrich MD at 10:50 EDT ,
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
--- NOTE | 2023-06-04 10:22 | RAD_ITS ---
STUDY: X-RAY - RIGHT KNEE REASON FOR EXAM: Female, 58 years old. Injury TECHNIQUE: 4 view(s) of the knee. COMPARISON: Comparison is made with prior study dated March 09, 2023. FINDINGS: Normal visualized distal femur. Intramedullary gianna fixation with screw fixation of the proximal tibial shaft. Healing fracture of the proximal fibula. Normal proximal tibiofibular articulation. There is mild degenerative arthrosis of the medial femorotibial compartment. Normal lateral femorotibial compartment. Normal patellofemoral articulation. There are atherosclerotic calcifications. RAD/Knee 4 or More Views IMPRESSION: No acute abnormality is seen. Electronically Signed: Piter Dietrich MD at 10:52 EDT ,
== END 2023-06-04 12:03 | disposition home or self-care (01) ==
PROVIDERS: Emergency Provider Emergency Medicine; PCP Family Medicine; Visit Provider Emergency Medicine
DX: T84.89XA Other specified complication of internal orthopedic prosthetic devices, implants and grafts, initial encounter (principal); J44.9 Chronic obstructive pulmonary disease, unspecified; E11.9 Type 2 diabetes mellitus without complications; Z87.891 Personal history of nicotine dependence; K21.9 Gastro-esophageal reflux disease without esophagitis; I12.9 Hypertensive chronic kidney disease with stage 1 through stage 4 chronic kidney disease, or unspecified chronic kidney disease; Z99.2 Dependence on renal dialysis; S82.831A Other fracture of upper and lower end of right fibula, initial encounter for closed fracture; W19.XXXA Unspecified fall, initial encounter
CPT/HCPCS: 73564; 73590; 99283

== ENCOUNTER 2023-06-09 07:22 | Emergency (ER) | payer BC, MEDICAID, SELFPAY ==
[2023-06-09 07:24] VITALS: BP 133/59; PULSE 92; RESP 16; TEMP 36.8; O2SAT 96; BMI 32.6
--- NOTE | 2023-06-09 07:56 | ED.VIS.LOWEX ---
HPI History of Present Illness HPI Narrative: Patient presents with pain in her right lower leg that became worse today. Patient was seen here recently and diagnosed with displacement of the proximal portion of her intramedullary gianna in her tibia. Patient was placed in a knee immobilizer and was supposed to have minimal weightbearing. Patient states that today she was going down a step and put some pressure on her right leg. Patient states it felt like it was going to give out. Patient states that her pain is sharp. Patient denies any paresthesias or weakness. Patient states nothing seems to help with her pain. Chief Complaint: Lower Extremity Injury Informant: patient Onset/Context/Timing Onset: Today Context: Sudden Onset Timing: Continuous Quality of Pain: Sharp Location: Right proximal tibia Worsened by: Weightbearing Relieved by: Nothing Associated Symptoms Associated Symptoms: Negative for Parasthesia or Weakness PFSH PFSH Medical History Anemia Anxiety and depression Asthma Benign essential hypertension Bipolar disorder Chronic anemia COPD with asthma Diabetes Diabetes mellitus, type 2 Dialysis patient DVT (deep venous thrombosis) ESRD (end stage renal disease) on dialysis Fibromyalgia Former smoker Former tobacco use Fracture of fibula, right, closed Fracture of right lower extremity GERD (gastroesophageal reflux disease) History of asthma History of bipolar disorder History of COPD History of diabetes mellitus, type II History of tobacco use HLD (hyperlipidemia) HTN (hypertension) Hyperkalemia Inability to walk Kidney disease Kidney disease, chronic, stage IV (GFR 15-29 ml/min) Neuropathy Obesity Osteoarthritis of right knee Pathological fracture, right tibia, initial encounter for fracture Sleep apnea Home Medications cholecalciferol (vitamin D3) 25 mcg (1,000 unit) capsule (Vitamin D3) 5,000 unit PO DAILY SUPPLEMENT 10/03/13 [History Last Taken 01/18/23] omeprazole 20 mg capsule,delayed release 20 mg PO DAILY 08/23/14 [History Last Taken 01/18/23] glipizide 5 mg tablet 10 mg PO DAILY DIABETES 04/28/15 [History Last Taken 01/18/23] melatonin 5 mg capsule 5 mg PO QHS 05/27/16 [History Last Taken 01/18/23] ferrous sulfate 325 mg (65 mg iron) tablet (Iron (ferrous sulfate)) 325 mg PO DAILY SUPPLEMENT 11/25/16 [History Last Taken 01/18/23] amitriptyline 100 mg tablet 100 mg PO QHS DEPRESSION 09/10/22 [History Last Taken 01/18/23] atorvastatin 40 mg tablet 40 mg PO QHS CHOLESTEROL 09/10/22 [History Last Taken 01/18/23] calcitriol 0.25 mcg capsule 0.25 mcg PO BID 09/10/22 [History Last Taken 01/18/23] dulaglutide 1.5 mg/0.5 mL subcutaneous pen injector (Trulicity) 1.5 mg subcut CORNELL DIABETES 09/10/22 [History Last Taken 01/18/23] sodium bicarbonate 650 mg tablet 650 mg PO QHS 09/10/22 [History Last Taken 01/18/23] docusate sodium 100 mg capsule (DOK) 100 mg PO DAILY STOOL SOFTENER #20 CAPSULES 01/15/23 [Rx Last Taken Unknown] apixaban 2.5 mg tablet (Eliquis) 2.5 mg PO BID BLOOD THINNER #56 tabs 01/29/23 [Rx Last Taken Unknown] labetalol 100 mg tablet 100 mg PO BID blood pressure 02/04/23 [History Last Taken Unknown] sevelamer carbonate 800 mg tablet 1,600 mg PO TID 02/04/23 [History Last Taken Unknown] oxycodone-acetaminophen 5 mg-325 mg tablet 1 tab PO Q6H PRN PRN Pain 3 days #12 TABLETS 06/09/23 [Rx Last Taken Unknown] Allergy/AdvReac Type Severity Reaction Status Date / [facility] Allergy Unknown UNKNOWN Verified 03/09/23 09:33 mold Allergy Unknown unknown Verified 03/09/23 09:33 lisinopril Allergy unknown Verified 03/09/23 09:33 Penicillins Allergy Anaphylaxis Verified 03/09/23 09:33 tetracycline [Tetracycline] Allergy Anaphylaxis Verified 03/09/23 09:33 codeine AdvReac Abd Verified 03/09/23 09:33 cramps/diarrhea diphenhydramine HCl AdvReac Upset Verified 03/09/23 09:33 [From Benadryl] Stomach hydrocodone bitartrate AdvReac Abd Verified 03/09/23 09:33 [From Vicodin] cramps/diarrhea NSAIDS (Non-Steroidal AdvReac Unknown Verified 03/09/23 09:33 Anti-Inflamma Family History Mother Heart disease Hypertension Diabetes Kidney disease Father Diabetes Surgical History H/O gastric bypass H/O vascular surgery History of appendectomy History of cholecystectomy S/P appendectomy S/P cholecystectomy Social History household members: none Smoking Status: Former smoker how long ago did patient quit smoking: Quit age 24. alcohol intake: never substance use type: does not use ROS ROS ED Constitutional Constitutional ED: Denies chills or fever(s) Eyes Eyes: Denies blurry vision or change in vision ENT ENT ED: Denies rhinorrhea or sore throat Cardiovascular Cardiovascular: Denies chest pain or palpitations Respiratory/Chest Respiratory/Chest: Denies cough or dyspnea Gastrointestinal Gastrointestinal: Denies nausea or vomiting Genitourinary Genitourinary ED: Denies dysuria or hematuria Musculoskeletal Musculoskeletal: Denies back pain or neck pain Integumentary Denies abscess or rash Neurologic Neurologic: Denies headache(s) or weakness Allergic/Immunologic Allergic/Immunologic ED: Denies mouth swelling or urticaria EXAM Physical Exam Const Vital Signs: 06/09/23 07:24 06/09/23 09:31 06/09/23 11:00 Temperature 98.2 F 98 F Temperature Source Oral Temporal Pulse Rate 92 72 93 Respiratory Rate 16 15 17 Blood Pressure 133/59 H 131/67 H 152/74 H Blood Pressure Mean 83 88 100 Pulse Ox 96 98 99 Oxygen Delivery Method Room Air Room Air Room Air Positive well nourished and well developed General Appearance ED: well developed and NAD HEENT Reports moist mucous membranes Neck full ROM and supple Extremity Extremity Narrative: There is tenderness and edema over the right proximal tibia and fibula. There is no obvious deformity noted. There is no calf tenderness noted. Range of motion was limited in all motions of the right knee secondary to pain. Strength is 5/5 bilaterally in the lower extremities. There are no sensory deficits noted. Pedal pulses are equal bilaterally. Neuro oriented x3, CN's II-XII intact bilaterally, moves all extremities and no sensory deficits noted Sensorium / Orientation: alert Motor Exam: strength 5/5 throughout Psych mental status grossly normal MDM MDM MDM Narrative Medical decision making narrative: Differential diagnosis includes fracture, contusion, and sprain. X-rays of the right tibia and fibula will be obtained for fracture. Radiography Diagnostic Testing: Clinical Impression(s) from Imaging Studies Tibia/Fibula X-Ray 06/09/23 08:22 IMPRESSION: Transverse fracture of the proximal portion of the intramedullary gianna fixation device within the tibia. Partial healing of the proximal tibia metaphyseal fracture. Healed proximal fibular fracture. Electronically Signed: Piter Dietrich MD at 9:30 EDT , X-rays of the right tibia and fibula were obtained. There are 3 views. On my independent interpretation, there is a fracture of the proximal portion of the intramedullary gianna. There is minimal displacement. There is partial healing of the proximal tibia fracture. There is a healed proximal fibular fracture. Radiologist also interpreted the x-ray and agrees. Treatment and Re-Evaluation Narrative: Patient was given a dose of oxycodone here. Case was discussed with Dr. Tucker from orthopedics. He recommended having the patient continue Eliquis. He is trying to have the patient seen by a traumatologist at a tertiary care center. He wants the patient to remain nonweightbearing. Patient states she only has 2 Percocet tablets left from her previous prescription. Patient was given a refill of this prescription. Patient states she has an appointment with Dr. Tucker tomorrow. Patient was instructed to follow-up with this to obtain referral for orthopedic trauma surgeon. Patient understands and is agreeable with the plan. All questions were answered. Discharge Plan Triage Chief Complaint: Lower Extremity Injury ED Provider: Sylvester Winston Dx/Rx/DC Orders Clinical Impression: Failed hardware, Right leg pain Instructions: ED Leg Fracture Prescriptions: Continued oxycodone-acetaminophen 5-325 mg tablet 1 tab PO Q6H PRN PRN (Reason: Pain) 3 Days Qty: 12 0RF No Action cholecalciferol (vitamin D3) [Vitamin D3] 1,000 UNIT capsule 5,000 unit PO DAILY omeprazole 20 MG capsule 20 mg PO DAILY glipizide 5 MG tablet 10 mg PO DAILY melatonin 5 MG capsule 5 mg PO QHS ferrous sulfate [Iron (ferrous sulfate)] 325 MG tablet 325 mg PO DAILY atorvastatin 40 mg tablet 40 mg PO QHS calcitriol 0.25 mcg capsule 0.25 mcg PO BID Trulicity 1.5 mg/0.5 mL pen injector 1.5 mg SUBCUT CORNELL Patient Comments: PT STATED HASNT USED IN TWO WEEKS sodium bicarbonate 650 mg tablet 650 mg PO QHS amitriptyline 100 mg tablet 100 mg PO QHS docusate sodium [DOK] 100 mg capsule 100 mg PO DAILY Qty: 20 0RF Eliquis 2.5 mg tablet 2.5 mg PO BID Qty: 56 0RF sevelamer carbonate 800 mg tablet 1,600 mg PO TID labetalol 100 mg tablet 100 mg PO BID Primary Care Provider: Aki Archibald Referrals: Deshawn Tucker MD [Med Staff - Active Staff] - 3-5 Days (Call his office to obtain referral to orthopedic trauma surgeon) Aki Archibald MD [Primary Care Provider] - Disposition Disposition: Home, Self Care
--- NOTE | 2023-06-09 08:22 | RAD_ITS ---
STUDY: X-RAY - RIGHT TIBIA AND FIBULA REASON FOR EXAM: Female, 58 years old. Injury/Pain TECHNIQUE: 3 view(s) of the tibia and fibula were obtained. COMPARISON: Comparison is made with prior study June 04, 2023. FINDINGS: Intramedullary gianna fixation device is once again seen in the tibia. There is a transverse fracture through its proximal portion. Partial healing of the proximal tibial fracture. A healed fibular fracture. Soft tissue swelling. RAD/Tibia & Fibula 2 Views IMPRESSION: Transverse fracture of the proximal portion of the intramedullary gianna fixation device within the tibia. Partial healing of the proximal tibia metaphyseal fracture. Healed proximal fibular fracture. Electronically Signed: Piter Dietrich MD at 9:30 EDT ,
[2023-06-09 09:31] VITALS: BP 131/67; PULSE 72; RESP 15; TEMP 36.6; O2SAT 98
[2023-06-09] MEDS: oxyCODONE 5 MG Tablet PO (10:47)
[2023-06-09 11:00] VITALS: BP 152/74; PULSE 93; RESP 17; O2SAT 99
[2023-06-09 11:54] VITALS: BP 153/64; PULSE 93; RESP 18; TEMP 37; O2SAT 99
== END 2023-06-09 12:01 | disposition home or self-care (01) ==
PROVIDERS: Emergency Provider Emergency Medicine; PCP Family Medicine; Visit Provider Emergency Medicine
DX: T84.84XA Pain due to internal orthopedic prosthetic devices, implants and grafts, initial encounter (principal); N18.6 End stage renal disease; I12.0 Hypertensive chronic kidney disease with stage 5 chronic kidney disease or end stage renal disease; J44.9 Chronic obstructive pulmonary disease, unspecified; E11.40 Type 2 diabetes mellitus with diabetic neuropathy, unspecified; E11.22 Type 2 diabetes mellitus with diabetic chronic kidney disease; Z87.891 Personal history of nicotine dependence; K21.9 Gastro-esophageal reflux disease without esophagitis; E78.5 Hyperlipidemia, unspecified; Z99.2 Dependence on renal dialysis; Z79.01 Long term (current) use of anticoagulants; T84.126A Displacement of internal fixation device of bone of right lower leg, initial encounter; X50.9XXA Other and unspecified overexertion or strenuous movements or postures, initial encounter
CPT/HCPCS: 73590; 99282

== ENCOUNTER 2023-06-29 19:39 | Emergency (ER) | payer BC, MEDICAID, SELFPAY ==
[2023-06-29] VITALS (8 sets, daily range): BP systolic 141–175; BP diastolic 62–74; PULSE 82–94; RESP 14–19; TEMP 36.3–36.9; O2SAT 92–98; BMI 32.7
--- NOTE | 2023-06-29 19:59 | EX.ED.DYSGE1 ---
HPI History of Present Illness Chief Complaint: Abn Labs Detail of Chief Complaint: Hemoglobin 6.8 Informant: patient and SNF Onset/Context/Timing Onset: Today (Blood work this morning indicates hemoglobin is 6.8) Context: Gradual Onset (Prior hemoglobin on June 16 was 8.4 with hematocrit of 26.1. This was performed at [facility]) Timing: Continuous Quality: Fatigue and weakness Location: Generalized Current Severity: Mild Maximum Severity: Mild Worsened by: Dyspnea on exertion Relieved by: Nothing Associated Symptoms Associated Symptoms: Nothing Narrative Narrative: Patient is a 58-year-old woman. She underwent orthopedic surgery approximately 2 to 2.5 weeks ago. Stephen in her right leg was defective and broke. She had to undergo surgery at [facility]. She went underwent extensive surgery. She was sent in because of hemoglobin 6.8. Patient's only complaint is fatigue weakness and dyspnea with activity. She denies chest pain. She denies black or maroon stool. She denies hematuria. She denies bleeding of her gums. She is not on an anticoagulant. She is on a baby aspirin a day. She denies bruising easily. Prior similar symptoms: No Recent Illness/Hospitalization: [facility] Medical History Anemia Anxiety and depression Asthma Benign essential hypertension Bipolar disorder Chronic anemia COPD with asthma Diabetes Diabetes mellitus, type 2 Dialysis patient DVT (deep venous thrombosis) ESRD (end stage renal disease) on dialysis Fibromyalgia Former smoker Former tobacco use Fracture of fibula, right, closed Fracture of right lower extremity GERD (gastroesophageal reflux disease) History of asthma History of bipolar disorder History of COPD History of diabetes mellitus, type II History of tobacco use HLD (hyperlipidemia) HTN (hypertension) Hyperkalemia Inability to walk Kidney disease Kidney disease, chronic, stage IV (GFR 15-29 ml/min) Neuropathy Obesity Osteoarthritis of right knee Pathological fracture, right tibia, initial encounter for fracture Sleep apnea Home Medications cholecalciferol (vitamin D3) 25 mcg (1,000 unit) capsule (Vitamin D3) 5,000 unit PO DAILY SUPPLEMENT 10/03/13 [History Last Taken 01/18/23] omeprazole 20 mg capsule,delayed release 20 mg PO DAILY 08/23/14 [History Last Taken 01/18/23] glipizide 5 mg tablet 10 mg PO DAILY DIABETES 04/28/15 [History Last Taken 01/18/23] melatonin 5 mg capsule 5 mg PO QHS 05/27/16 [History Last Taken 01/18/23] ferrous sulfate 325 mg (65 mg iron) tablet (Iron (ferrous sulfate)) 325 mg PO DAILY SUPPLEMENT 11/25/16 [History Last Taken 01/18/23] amitriptyline 100 mg tablet 100 mg PO QHS DEPRESSION 09/10/22 [History Last Taken 01/18/23] atorvastatin 40 mg tablet 40 mg PO QHS CHOLESTEROL 09/10/22 [History Last Taken 01/18/23] calcitriol 0.25 mcg capsule 0.25 mcg PO BID 09/10/22 [History Last Taken 01/18/23] dulaglutide 1.5 mg/0.5 mL subcutaneous pen injector (Trulicity) 1.5 mg subcut CORNELL DIABETES 09/10/22 [History Last Taken 01/18/23] docusate sodium 100 mg capsule (DOK) 100 mg PO DAILY STOOL SOFTENER #20 CAPSULES 01/15/23 [Rx Last Taken Unknown] labetalol 100 mg tablet 100 mg PO BID blood pressure 02/04/23 [History Last Taken Unknown] sevelamer carbonate 800 mg tablet 1,600 mg PO TID 02/04/23 [History Last Taken Unknown] oxycodone-acetaminophen 5 mg-325 mg tablet 1 tab PO Q6H PRN PRN Pain 3 days #12 TABLETS 06/09/23 [Rx Last Taken Unknown] aspirin 81 mg capsule 81 mg PO DAILY 06/29/23 [History Last Taken Unknown] hydroxyzine HCl 50 mg tablet 50 mg PO QHS 06/29/23 [History Last Taken Unknown] vitamin with calcium no.72-iron 27 mg-folic acid 1 mg tablet ( Vitamins Plus Low Iron) 1 tab PO DAILY 06/29/23 [History Last Taken Unknown] sertraline 50 mg tablet 50 mg PO DAILY 06/29/23 [History Last Taken Unknown] Allergy/AdvReac Type Severity Reaction Status Date / Time [facility] Allergy Unknown UNKNOWN Verified 03/09/23 09:33 mold Allergy Unknown unknown Verified 03/09/23 09:33 lisinopril Allergy unknown Verified 03/09/23 09:33 Penicillins Allergy Anaphylaxis Verified 03/09/23 09:33 tetracycline [Tetracycline] Allergy Anaphylaxis Verified 03/09/23 09:33 codeine AdvReac Abd Verified 03/09/23 09:33 cramps/diarrhea diphenhydramine HCl AdvReac Upset Verified 03/09/23 09:33 [From Benadryl] Stomach hydrocodone bitartrate AdvReac Abd Verified 03/09/23 09:33 [From Vicodin] cramps/diarrhea NSAIDS (Non-Steroidal AdvReac Unknown Verified 03/09/23 09:33 Anti-Inflamma Family History Mother Heart disease Hypertension Diabetes Kidney disease Father Diabetes Surgical History H/O gastric bypass H/O vascular surgery History of appendectomy History of cholecystectomy S/P appendectomy S/P cholecystectomy Social History household members: none Smoking Status: Former smoker how long ago did patient quit smoking: Quit age 24. alcohol intake: never substance use type: does not use ROS ROS ED Constitutional Constitutional ED: Denies chills, fever(s) or subjective Eyes Eyes: Denies blurry vision or change in vision ENT ENT ED: Denies sore throat Cardiovascular Cardiovascular: Denies chest pain or palpitations Respiratory/Chest Respiratory/Chest: Reports dyspnea on exertion; Denies cough or dyspnea Gastrointestinal Gastrointestinal: Denies diarrhea, melena or vomiting Genitourinary Genitourinary ED: Denies hematuria Integumentary Denies rash Hematologic/Lymphatic Hematologic/Lymphatic: Reports systems reviewed and no addt'l complaints, except as documented; Denies easy bleeding or easy bruising EXAM Physical Exam Const Vital Signs: 06/29/23 19:40 06/29/23 19:44 Temperature 97.4 F L Temperature Source Temporal Pulse Rate 94 Respiratory Rate 15 Respiratory Effort Normal Respiratory Pattern Normal Blood Pressure 167/65 H Blood Pressure Mean 99 Pulse Ox 98 Oxygen Delivery Method Room Air Positive well nourished, well developed and obese General Appearance ED: well developed, NAD and pallor Nutritional Appearance: obese HEENT Reports moist mucous membranes HEENT Narrative: Head is atraumatic no cephalic. Ears normal. Eyes PERRL and EOMs intact bilaterally General Eye ED: Yes pale conjunctiva; Negative for scleral icterus Neck no lymphadenopathy and supple Chest Wall inspection of chest normal and palpation of chest normal Resp normal respiratory effort and clear to auscultation bilaterally Cardio regular rate, regular rhythm, S1 normal heart sound, S2 normal heart sound and no murmurs GI normal to inspection, nondistended, normoactive bowel sounds, non-tender and non-distended; Negative for hepatosplenomegaly Extremity Negative for normal to inspection Extremity Narrative: Patient has a knee brace right lower extremity and dressing to wounds status post surgery. Neuro oriented x3 and CN's II-XII intact bilaterally Sensorium / Orientation: alert Psych mental status grossly normal Skin General Skin Exam: pallor MDM MDM MDM Narrative Medical decision making narrative: Patient with chronic anemia and symptomatic. She was typed and crossed for 1 unit of blood. She received 1 unit of blood and then discharged back to facility. Prior records from [facility] were reviewed. Prior hemoglobin at [facility] was March this year and 9.1. Suspect her drop is due to her chronic illness/renal failure and recent surgery. Lab Data Lab results narrative: Hemoglobin 7.5 at our lab. This was then lab error. Patient will receive a unit of blood and then discharge Labs: Laboratory Results - last 24 hr 06/29/23 06/29/23 20:05 20:39 WBC 5.1 RBC 2.31 L Hgb 7.5 L Hct 25.3 L MCV 109.5 H MCH 32.5 H MCHC 29.6 L RDW Std Deviation 67.9 H RDW Coeff of Ben 17.3 H Plt Count 162 MPV 8.7 Blood Type Cancelled Antibody Screen Cancelled Crossmatch See Detail See Detail Discharge Plan Triage Chief Complaint: Abn Labs ED Provider: Ismael Gillespie Dx/Rx/DC Orders Clinical Impression: Transfusion of blood during current hospitalisation, Anemia due to chronic kidney disease, on chronic dialysis, Signs and symptoms of anemia, Symptomatic anemia Instructions: Blood Transfusion Adult Dc Prescriptions: No Action cholecalciferol (vitamin D3) [Vitamin D3] 1,000 UNIT capsule 5,000 unit PO DAILY omeprazole 20 MG capsule 20 mg PO DAILY glipizide 5 MG tablet 10 mg PO DAILY melatonin 5 MG capsule 5 mg PO QHS ferrous sulfate [Iron (ferrous sulfate)] 325 MG tablet 325 mg PO DAILY atorvastatin 40 mg tablet 40 mg PO QHS calcitriol 0.25 mcg capsule 0.25 mcg PO BID Trulicity 1.5 mg/0.5 mL pen injector 1.5 mg SUBCUT CORNELL Patient Comments: PT STATED HASNT USED IN TWO WEEKS amitriptyline 100 mg tablet 100 mg PO QHS docusate sodium [DOK] 100 mg capsule 100 mg PO DAILY Qty: 20 0RF sevelamer carbonate 800 mg tablet 1,600 mg PO TID labetalol 100 mg tablet 100 mg PO BID oxycodone-acetaminophen 5-325 mg tablet 1 tab PO Q6H PRN PRN (Reason: Pain) 3 Days Qty: 12 0RF aspirin 81 mg capsule 81 mg PO DAILY hydroxyzine HCl 50 mg tablet 50 mg PO QHS sertraline 50 mg tablet 50 mg PO DAILY Vitamin Plus Low Iron 27 mg iron- 1 mg tablet 1 tab PO DAILY Primary Care Provider: Aki Archibald Referrals: Aki Archibald MD [Primary Care Provider] - As Needed Disposition Disposition: Home, Self Care
[2023-06-29 20:17] LABS: Hematocrit 25.3 % (37-47); Hemoglobin 7.5 g/dL (12.0-15.0); Mean Corp Hgb Conc 29.6 g/dL (32-36); Mean Corpuscular Hgb 32.5 pg (27.0-32.0); Mean Corpuscular Volume 109.5 fL (81-99); Mean Platelet Vol. 8.7 fl (6.2-12.0); POSITIVE MORPHOLOGY YES; Platelet Count 162 K/mm3 (150-450); RBC Distribution Width CV 17.3 % (11.6-14.6); RBC Distribution Width SD 67.9 fl (35.1-43.9); Red Blood Count 2.31 M/mm3 (4.2-5.4); White Blood Count 5.1 K/mm3 (4.4-11.0)
[2023-06-29 20:29] LABS: Scan Indicated on CBC? Y/N YES- FLAGS NOTED
--- NOTE | 2023-06-29 23:25 | ED.RN ---
This RN was informed of the patients blood having antibodies and that it would take a day to get blood. Dr Gillespie was informed and a plan was made for the patient to get outpatient blood transfused tomorrow. This RN notified the [facility] and for them to call their oncology rep doctor to inform them of this change. The [facility] is aware.
[2023-06-30] MEDS: traMADol 50 MG Tablet PO (00:24)
[2023-06-30] MEDS: Acetaminophen 500 MG Tablet 1000 MG PO (00:24)
[2023-06-30 01:00] VITALS: PULSE 87; RESP 19; O2SAT 95
[2023-06-30 02:17] VITALS: BP 140/73; PULSE 80; RESP 18; TEMP 36.3; O2SAT 96
== END 2023-06-30 03:53 | disposition home or self-care (01) ==
PROVIDERS: Emergency Provider Emergency Medicine; PCP Family Medicine; Visit Provider Emergency Medicine
DX: D64.89 Other specified anemias (principal); I12.0 Hypertensive chronic kidney disease with stage 5 chronic kidney disease or end stage renal disease; N18.6 End stage renal disease; J44.9 Chronic obstructive pulmonary disease, unspecified; E11.22 Type 2 diabetes mellitus with diabetic chronic kidney disease; E11.40 Type 2 diabetes mellitus with diabetic neuropathy, unspecified; D63.1 Anemia in chronic kidney disease; Z87.891 Personal history of nicotine dependence; Z99.2 Dependence on renal dialysis; Z98.890 Other specified postprocedural states; Z79.82 Long term (current) use of aspirin; R06.09 Other forms of dyspnea; E66.9 Obesity, unspecified
CPT/HCPCS: 85027; 86850; 86870; 86900; 86901; 86905; 99282; A4216

== ENCOUNTER 2023-07-02 08:52 | Outpatient (CLI) | payer BC, SELFPAY ==
[2023-07-02 09:19] VITALS: BP 125/55; PULSE 75; RESP 16; TEMP 36.1; BMI 30.5
[2023-07-02] MEDS: Acetaminophen 325 MG Tablet 650 MG PO (10:01)
[2023-07-02] MEDS: DiphenhydrAMINE 50 MG/ML Syringe IV (10:01)
[2023-07-02] MEDS: 0.9% Normal Saline (500mL Bag) 500 ML 15 ML IV (10:08)
[2023-07-02 10:54] VITALS: BP 104/46; PULSE 81; RESP 16; TEMP 36.2; O2SAT 100
[2023-07-02 11:54] VITALS: BP 134/58; PULSE 85; RESP 16; TEMP 36.7; O2SAT 99
[2023-07-02 13:23] VITALS: BP 146/63; PULSE 89; RESP 16; TEMP 36.7; O2SAT 100
[2023-07-02 15:21] VITALS: BP 135/56; PULSE 91; RESP 16; TEMP 36.7; O2SAT 99
== END 2023-07-02 08:53 | disposition home or self-care (01) ==
PROVIDERS: PCP Family Medicine; Referring Provider Nurse Practitioner Family; Visit Provider Nurse Practitioner Family
DX: D64.9 Anemia, unspecified (principal)
CPT/HCPCS: 96374; 36430; 86850; 86870; 86900; 86901; 86902; 86920; 86922; J7040; P9016

== ENCOUNTER 2023-07-24 20:50 | Emergency (ER) | payer BC, MEDICAID, SELFPAY ==
[2023-07-24 20:51] VITALS: BP 139/64; PULSE 86; RESP 17; TEMP 36.8; O2SAT 99; BMI 31.6
[2023-07-24] MEDS: Ondansetron 4 MG/2 ML Vial IV (21:59)
[2023-07-24] MEDS: Morphine 4 MG/ML Syringe IV (21:59)
[2023-07-24 22:02] LABS: Absolute Lymphocyte Count 1.94 X10^3/uL (0.83-4.51); Absolute Neutrophil Count 3.3 X10^3/uL (2.0-7.7); Basophil# 0.05 X10^3/uL; Basophil% 0.8 % (0-1); Eosinophil# 0.24 X10^3/uL; Eosinophils% 3.9 % (0-5); Hematocrit 34.5 % (37-47); Hemoglobin 10.5 g/dL (12.0-15.0); Lymphocyte # 1.94 X10^3/ul (0.83-4.51); Lymphocyte % 31.6 % (19-41); Mean Corp Hgb Conc 30.4 g/dL (32-36); Mean Corpuscular Hgb 31.6 pg (27.0-32.0); Mean Corpuscular Volume 103.9 fL (81-99); Mean Platelet Vol. 9.6 fl (6.2-12.0); Monocyte# 0.59 X10^3/uL; Monocyte% 9.6 % (0-10); NRBC Flagged by Analyzer 0 % (0-5); Neutrophil % 53.8 % (47-70); Platelet Count 166 K/mm3 (150-450); RBC Distribution Width CV 13.9 % (11.6-14.6); RBC Distribution Width SD 53.4 fl (35.1-43.9); Red Blood Count 3.32 M/mm3 (4.2-5.4); White Blood Count 6.1 K/mm3 (4.4-11.0)
--- NOTE | 2023-07-24 22:05 | RAD_ITS ---
STUDY: X-RAY - RIGHT TIBIA AND FIBULA REASON FOR EXAM: Female, 58 years old. Injury/Pain TECHNIQUE: 2 view(s) of the tibia and fibula were obtained. COMPARISON: Numerous prior studies from 01/21/2023 through 06/09/2023. FINDINGS: Since prior exam, intramedullary gianna has been removed, and there are compression plates and screws across both sides of the proximal tibia fixating an ununited fracture through the proximal metaphysis. Sclerosis across the fracture lines suggests cortication. There is some new bone formation. Chronic fractures of the proximal fibula also seen with normal alignment. There is diffuse demineralization. RAD/Tibia & Fibula 2 Views IMPRESSION: Intramedullary gianna is again removed. Medial and lateral compression plates of the proximal tibia are seen. Chronic fractures are seen of the proximal tibia and fibula with normal alignment. Electronically Signed: Jorgito Piper MD at 22:40 EDT ,
[2023-07-24 22:10] LABS: Prothrombin Time (Protime)PT. 13.1 SECONDS (11.7-14.9)
[2023-07-24 22:11] LABS: Partial Thromboplast Time 26.1 Seconds (24.1-36.2)
[2023-07-24 22:12] VITALS: BP 123/56; PULSE 81; RESP 19; TEMP 36.9; O2SAT 96
[2023-07-24 22:35] LABS: Anion Gap 7 (5-15); BUN 29 mg/dL (7-18); BUN/Creat Ratio 7.2 RATIO (10-20); Calcium,Total 8.8 mg/dL (8.5-10.1); Chloride 103 mmol/L (98-107); Creatinine, Serum 4.03 mg/dL (0.55-1.02); EST Glomerular Filtration Rate 12 mL/min (>60); Est Glom Filt Rate - Afr Amer 15 mL/min (>60); Estimated Creatinine Clearance 18.28 ml/min; Glucose 103 mg/dL (74-106); Potassium 4.5 mmol/L (3.5-5.1); Sodium Level 138 mmol/L (136-145)
--- NOTE | 2023-07-24 22:42 | EDS_ITS ---
HPI History of Present Illness HPI Narrative: Patient presents with open wound to her right proximal tibia for the past week. Patient states that her Steri-Strips fell off and her wound opened up last week. Patient noted some drainage today. Patient describes her pain as sharp. Patient states she took some Tylenol which helped. Patient denies any paresthesias or weakness. Patient denies any trauma or injury. Patient denies any fevers or chills. Patient denies any nausea or vomiting. Chief Complaint: Wound Check Informant: patient Onset/Context/Timing Onset: Weeks (1) Context: Gradual Onset Timing: Continuous Quality of Pain: Sharp Location: Right proximal tibia Worsened by: Nothing Relieved by: Tylenol Associated Symptoms Associated Symptoms: Negative for Parasthesia, Weakness or Loss of Funtion PFSH PFS Medical History Anemia Hyperkalemia Osteoarthritis of right knee Fracture of fibula, right, closed Pathological fracture, right tibia, initial encounter for fracture Diabetes Dialysis patient Kidney disease GERD (gastroesophageal reflux disease) Sleep apnea Former smoker Asthma DVT (deep venous thrombosis) ESRD (end stage renal disease) on dialysis Fracture of right lower extremity Inability to walk Diabetes mellitus, type 2 Obesity Chronic anemia COPD with asthma Bipolar disorder Anxiety and depression HLD (hyperlipidemia) HTN (hypertension) Former tobacco use Neuropathy Fibromyalgia Kidney disease, chronic, stage IV (GFR 15-29 ml/min) History of tobacco use History of diabetes mellitus, type II History of COPD History of bipolar disorder Benign essential hypertension History of asthma Home Medications ?Medication ?Instructions ?Recorded ?Last Taken ?Type cholecalciferol (vitamin D3) 25 5,000 unit PO DAILY SUPPLEMENT 10/03/13 01/18/23 History mcg (1,000 unit) capsule (Vitamin D3) omeprazole 20 mg capsule,delayed 20 mg PO DAILY 08/23/14 01/18/23 History release glipizide 5 mg tablet 10 mg PO DAILY DIABETES 04/28/15 01/18/23 History melatonin 5 mg capsule 5 mg PO QHS 05/27/16 01/18/23 History amitriptyline 100 mg tablet 100 mg PO QHS DEPRESSION 09/10/22 01/18/23 History atorvastatin 40 mg tablet 40 mg PO QHS CHOLESTEROL 09/10/22 01/18/23 History calcitriol 0.25 mcg capsule 0.25 mcg PO BID 09/10/22 01/18/23 History dulaglutide 1.5 mg/0.5 mL 1.5 mg subcut CORNELL DIABETES 09/10/22 01/18/23 History subcutaneous pen injector (Trulicity) docusate sodium 100 mg capsule 100 mg PO DAILY STOOL SOFTENER #20 01/15/23 Unknown Rx (DOK) CAPSULES labetalol 100 mg tablet 100 mg PO BID blood pressure 02/04/23 Unknown History sevelamer carbonate 800 mg tablet 1,600 mg PO TID 02/04/23 Unknown History oxycodone-acetaminophen 5 mg-325 1 tab PO Q6H PRN PRN Pain 3 days 06/09/23 Unknown Rx mg tablet #12 TABLETS aspirin 81 mg capsule 81 mg PO DAILY 06/29/23 Unknown History hydroxyzine HCl 50 mg tablet 50 mg PO QHS 06/29/23 Unknown History vitamin with calcium 1 tab PO DAILY 06/29/23 Unknown History no.72-iron 27 mg-folic acid 1 mg tablet ( Vitamins Plus Low Iron) sertraline 50 mg tablet 50 mg PO DAILY 06/29/23 Unknown History acetaminophen 325 mg capsule 650 mg PO Q6H 07/02/23 Unknown History (Tylenol) ondansetron HCl 4 mg tablet 4 mg PO Q8H PRN PRN nausea and 07/02/23 Unknown History vomiting clindamycin HCl 300 mg capsule 300 mg PO Q6H #40 CAPSULES 07/24/23 Unknown Rx (Cleocin HCl) oxycodone-acetaminophen 5 mg-325 1 tab PO Q6H PRN PRN Pain 3 days 07/24/23 Unknown Rx mg tablet #12 TABLETS Allergy/AdvReac Type Severity Reaction Status Date / Time balsam carin Allergy Unknown UNKNOWN Verified 07/02/23 09:13 mold Allergy Unknown unknown Verified 07/02/23 09:13 lisinopril Allergy unknown Verified 07/02/23 09:13 Penicillins Allergy Anaphylaxis Verified 07/02/23 09:13 tetracycline (Tetracycline) Allergy Anaphylaxis Verified 07/02/23 09:13 codeine AdvReac Abd Verified 07/02/23 09:13 cramps/diarrhea diphenhydramine HCl (From AdvReac Upset Verified 07/02/23 09:13 Benadryl) Stomach hydrocodone bitartrate (From AdvReac Abd Verified 07/02/23 09:13 Vicodin) cramps/diarrhea NSAIDS (Non-Steroidal AdvReac Unknown Verified 07/02/23 09:13 Anti-Inflamma Family History Mother Heart disease Hypertension Diabetes Kidney disease Father Diabetes Surgical History History of appendectomy History of cholecystectomy H/O vascular surgery H/O gastric bypass S/P cholecystectomy S/P appendectomy Social History household members: none Smoking Status: Former smoker how long ago did patient quit smoking: Quit age 24. alcohol intake: never substance use type: does not use ROS ROS ED Constitutional Constitutional ED: Denies chills or fever(s) Eyes Eyes: Denies blurry vision or change in vision ENT ENT ED: Denies rhinorrhea or sore throat Cardiovascular Cardiovascular: Denies chest pain or palpitations Respiratory/Chest Respiratory/Chest: Denies cough or dyspnea Gastrointestinal Gastrointestinal: Reports nausea and vomiting Genitourinary Genitourinary ED: Denies dysuria or hematuria Musculoskeletal Musculoskeletal: Reports back pain; Denies neck pain Integumentary Denies abscess or rash Neurologic Neurologic: Denies headache(s) or weakness Allergic/Immunologic Allergic/Immunologic ED: Denies mouth swelling or urticaria EXAM Physical Exam Const Vital Signs: 07/24/23 20:51 07/24/23 22:12 Temperature 98.3 F 98.4 F Temperature Source Oral Oral Pulse Rate 86 81 Respiratory Rate 17 19 H Blood Pressure 139/64 H 123/56 H Blood Pressure Mean 89 78 Pulse Ox 99 96 Oxygen Delivery Method Room Air Room Air Positive well nourished and well developed General Appearance ED: well developed and NAD HEENT Reports moist mucous membranes normocephalic and atraumatic Resp normal respiratory effort and clear to auscultation bilaterally Cardio regular rate and regular rhythm GI non-tender and non-distended Palpation: soft Extremity Extremity Narrative: There is an open wound over the anterior aspect of the right lower leg. There is no surrounding erythema. There is minimal discharge noted. There is mild tenderness noted. Sensation was intact to light touch bilaterally in the lower extremities. Strength is 5/5 bilaterally in the lower extremities. Neuro oriented x3, CN's II-XII intact bilaterally, moves all extremities and no sensory deficits noted Sensorium / Orientation: alert Motor Exam: strength 5/5 throughout Psych mental status grossly normal MDM MDM MDM Narrative Medical decision making narrative: Differential diagnosis includes wound infection, osteomyelitis, sepsis, and chronic pain. CBC will be obtained to assess for leukocytosis and anemia. Basic metabolic profile will be obtained to assess for electrolyte abnormality and renal function. PT with INR and PTT will be obtained to assess for coagulopathy. Serum lactate will be obtained to assess for sepsis. Wound culture will be obtained to assess for wound infection. X-rays of the tibia and fibula will be obtained to assess for osteomyelitis. Lab Data Attestation: I reviewed the patient's lab results. Lab results narrative: CBC was reviewed. White blood cell count was within normal limits. There is a mild anemia with a hemoglobin of 10.5 and hematocrit 34.5. Platelets were within normal limits. Basic metabolic profile was reviewed. BUN was elevated at 29 and creatinine was elevated at 4.03. These are consistent with prior results. Serum lactate was reviewed and was normal at 1.0. PT was INR and PTT were reviewed and were within normal limits. Labs: Laboratory Results - last 24 hr 07/24/23 21:50 WBC 6.1 RBC 3.32 L Hgb 10.5 L Hct 34.5 L MCV 103.9 H MCH 31.6 MCHC 30.4 L RDW Std Deviation 53.4 H RDW Coeff of Ben 13.9 Plt Count 166 MPV 9.6 Immature Gran % (Auto) 0.300 Neut % (Auto) 53.8 Lymph % (Auto) 31.6 [place] % (Auto) 9.6 Eos % (Auto) 3.9 Baso % (Auto) 0.8 Absolute Neuts (auto) 3.3 Absolute Lymphs (auto) 1.94 Nucleated RBC % 0 PT 13.1 INR 1.0 APTT 26.1 Sodium 138 Potassium 4.5 Chloride 103 Carbon Dioxide 28.0 Anion Gap 7 BUN 29 H Creatinine 4.03 H Estim Creat Clear Calc 18.28 Est GFR (MDRD) Af Amer 15 L Est GFR (MDRD) Non-Af 12 L BUN/Creatinine Ratio 7.2 L Glucose 103 Lactic Acid 1.0 Calcium 8.8 Radiography Diagnostic Testing: Clinical Impression(s) from Imaging Studies Tibia/Fibula X-Ray 07/24/23 22:05 IMPRESSION: Intramedullary gianna is again removed. Medial and lateral compression plates of the proximal tibia are seen. Chronic fractures are seen of the proximal tibia and fibula with normal alignment. Electronically Signed: Jorgito Piper MD at 22:40 EDT , X-rays of the right tibia and fibula were obtained. There are 2 views. On my independent interpretation, there is plates in the proximal tibia. There is no acute fracture. There is no evidence of osteomyelitis. There is no soft tissue swelling noted. Radiologist also interpreted the x-rays and agrees. Treatment and Re-Evaluation Narrative: Patient was given clindamycin, morphine, and Zofran here. Patient was advised of her findings. With a normal white blood cell count and normal lactate, I do not feel that there is any need for IV antibiotics or inpatient admission. Patient was given a prescription for clindamycin. Patient is given a prescription for a short course of [place]. Patient was given a referral for wound care center. Patient was instructed to follow-up with her primary care physician and orthopedic surgeon in 3 to 5 days. Patient understood and was agreeable with the plan. All questions were answered. Discharge Plan Triage Chief Complaint: Wound Check ED Provider: Sylvester Winston Dx/Rx/DC Orders Clinical Impression: Open wound of right lower leg, Right leg pain Instructions: ED Post Op Wound Check, General, ED Wound Check (Infection) Prescriptions: New clindamycin HCl [Cleocin HCl] 300 mg capsule 300 mg PO Q6H Qty: 40 0RF oxycodone-acetaminophen 5-325 mg tablet 1 tab PO Q6H PRN PRN (Reason: Pain) 3 Days Qty: 12 0RF No Action cholecalciferol (vitamin D3) [Vitamin D3] 1,000 UNIT capsule 5,000 unit PO DAILY omeprazole 20 MG capsule 20 mg PO DAILY glipizide 5 MG tablet 10 mg PO DAILY melatonin 5 MG capsule 5 mg PO QHS atorvastatin 40 mg tablet 40 mg PO QHS calcitriol 0.25 mcg capsule 0.25 mcg PO BID Trulicity 1.5 mg/0.5 mL pen injector 1.5 mg SUBCUT CORNELL Patient Comments: PT STATED HASNT USED IN TWO WEEKS amitriptyline 100 mg tablet 100 mg PO QHS docusate sodium [DOK] 100 mg capsule 100 mg PO DAILY Qty: 20 0RF sevelamer carbonate 800 mg tablet 1,600 mg PO TID labetalol 100 mg tablet 100 mg PO BID acetaminophen [Tylenol] 325 mg capsule 650 mg PO Q6H ondansetron HCl 4 mg tablet 4 mg PO Q8H PRN PRN (Reason: nausea and vomiting) oxycodone-acetaminophen 5-325 mg tablet 1 tab PO Q6H PRN PRN (Reason: Pain) 3 Days Qty: 12 0RF aspirin 81 mg capsule 81 mg PO DAILY hydroxyzine HCl 50 mg tablet 50 mg PO QHS sertraline 50 mg tablet 50 mg PO DAILY Vitamin Plus Low Iron 27 mg iron- 1 mg tablet 1 tab PO DAILY Primary Care Provider: Aki Archibald Referrals: Aki Archibald MD [Primary Care Provider] - 3-5 Days Wound,Center [Non-Staff] - 3-5 Days Print Language: Macedonian Disposition Disposition: Home, Self Care
[2023-07-24] MEDS: Clindamycin 900 MG/50 ML BAG 75 MG IV (22:45)
[2023-07-24 23:40] VITALS: BP 118/52; PULSE 77; RESP 20; TEMP 36.6; O2SAT 97
[2023-07-25 00:37] VITALS: BP 138/89; PULSE 71; PULSE 80; RESP 17; RESP 19; TEMP 36.6; TEMP 36.7; O2SAT 96
== END 2023-07-25 01:33 | disposition home or self-care (01) ==
PROVIDERS: Emergency Provider Emergency Medicine; PCP Family Medicine; Visit Provider Emergency Medicine
DX: S81.801A Unspecified open wound, right lower leg, initial encounter (principal); N18.6 End stage renal disease; I12.0 Hypertensive chronic kidney disease with stage 5 chronic kidney disease or end stage renal disease; J44.9 Chronic obstructive pulmonary disease, unspecified; E11.22 Type 2 diabetes mellitus with diabetic chronic kidney disease; Z87.891 Personal history of nicotine dependence; Z99.2 Dependence on renal dialysis; K21.9 Gastro-esophageal reflux disease without esophagitis; X58.XXXA Exposure to other specified factors, initial encounter
CPT/HCPCS: 73590; 80048; 83605; 85025; 85610; 85730; 87070; 87077; 87186; 87205; 96365; 96366; 96375; 99283; J7040; A4216; J2405

== ENCOUNTER 2023-10-31 06:45 | Emergency (ER) | payer BC, MEDICAID, SELFPAY ==
[2023-10-31 06:46] VITALS: BP 148/71; PULSE 94; RESP 16; TEMP 36.8; O2SAT 99; BMI 28.8
--- NOTE | 2023-10-31 07:10 | EDS_ITS ---
HPI HPI - Fall History of Present Illness Chief Complaint: Fall Informant: patient Occured/Mechanism Occurred: Today Mechanism/Context: Yes same level fall and Yes trip Pain/Injury Location: Right side of head, neck, and right lower leg Pain Location: head, neck and lower extremity Quality of Pain: Throbbing Worsened by: Nothing Relieved by: Nothing Associated Symptoms Associated Symptoms: Negative for Parasthesias, Weakness, Loss of function, Inability to ambulate or Loss of consciousness Narrative Narrative: Patient presents after a fall today. Patient states she tripped over her oxygen concentrator and fell forward. Patient states she hit the right side of her head. Patient complains of pain over the right side of her head and right side of her neck. Patient also hit her right lower leg. Patient denies any loss of consciousness. Patient denies any paresthesias or weakness. Patient describes her pain as throbbing. Patient states nothing makes it worse and nothing makes it better. Patient denies any other injuries. [facility] Medical History Fracture of fibula, right, closed Anemia Hyperkalemia Osteoarthritis of right knee Pathological fracture, right tibia, initial encounter for fracture Diabetes Dialysis patient Kidney disease GERD (gastroesophageal reflux disease) Sleep apnea Former smoker Asthma DVT (deep venous thrombosis) ESRD (end stage renal disease) on dialysis Fracture of right lower extremity Inability to walk Diabetes mellitus, type 2 Obesity Chronic anemia COPD with asthma Bipolar disorder Anxiety and depression HLD (hyperlipidemia) HTN (hypertension) Former tobacco use Neuropathy Fibromyalgia Kidney disease, chronic, stage IV (GFR 15-29 ml/min) History of tobacco use History of diabetes mellitus, type II History of COPD History of bipolar disorder Benign essential hypertension History of asthma Home Medications ?Medication ?Instructions ?Recorded ?Last Taken ?Type cholecalciferol (vitamin D3) 25 5,000 unit PO DAILY SUPPLEMENT 10/03/13 01/18/23 History mcg (1,000 unit) capsule (Vitamin D3) omeprazole 20 mg capsule,delayed 20 mg PO DAILY 08/23/14 01/18/23 History release glipizide 5 mg tablet 10 mg PO DAILY DIABETES 04/28/15 01/18/23 History melatonin 5 mg capsule 5 mg PO QHS 05/27/16 01/18/23 History amitriptyline 100 mg tablet 100 mg PO QHS DEPRESSION 09/10/22 01/18/23 History atorvastatin 40 mg tablet 40 mg PO QHS CHOLESTEROL 09/10/22 01/18/23 History calcitriol 0.25 mcg capsule 0.25 mcg PO BID 09/10/22 01/18/23 History dulaglutide 1.5 mg/0.5 mL 1.5 mg subcut CORNELL DIABETES 09/10/22 01/18/23 History subcutaneous pen injector (Trulicity) docusate sodium 100 mg capsule 100 mg PO DAILY STOOL SOFTENER #20 01/15/23 Unknown Rx (DOK) CAPSULES labetalol 100 mg tablet 100 mg PO BID blood pressure 02/04/23 Unknown History sevelamer carbonate 800 mg tablet 1,600 mg PO TID 02/04/23 Unknown History aspirin 81 mg capsule 81 mg PO DAILY 06/29/23 Unknown History hydroxyzine HCl 50 mg tablet 50 mg PO QHS 06/29/23 Unknown History vitamin with calcium 1 tab PO DAILY 06/29/23 Unknown History no.72-iron 27 mg-folic acid 1 mg tablet ( Vitamins Plus Low Iron) sertraline 50 mg tablet 50 mg PO DAILY 06/29/23 Unknown History acetaminophen 325 mg capsule 650 mg PO Q6H 07/02/23 Unknown History (Tylenol) ondansetron HCl 4 mg tablet 4 mg PO Q8H PRN PRN nausea and 07/02/23 Unknown History vomiting clindamycin HCl 300 mg capsule 300 mg PO Q6H #40 CAPSULES 07/24/23 Unknown Rx (Cleocin HCl) oxycodone-acetaminophen 5 mg-325 1 tab PO Q6H PRN PRN Pain 3 days 07/24/23 Unknown Rx mg tablet #12 TABLETS Allergy/AdvReac Type Severity Reaction Status Date / Time letym carin Allergy Unknown UNKNOWN Verified 10/31/23 06:46 mold Allergy Unknown unknown Verified 10/31/23 06:46 lisinopril Allergy unknown Verified 10/31/23 06:46 Penicillins Allergy Anaphylaxis Verified 10/31/23 06:46 tetracycline (Tetracycline) Allergy Anaphylaxis Verified 10/31/23 06:46 codeine AdvReac Abd Verified 10/31/23 06:46 cramps/diarrhea diphenhydramine HCl (From AdvReac Upset Verified 10/31/23 06:46 Benadryl) Stomach hydrocodone bitartrate (From AdvReac Abd Verified 10/31/23 06:46 Vicodin) cramps/diarrhea NSAIDS (Non-Steroidal AdvReac Unknown Verified 10/31/23 06:46 Anti-Inflamma Family History Mother Heart disease Hypertension Diabetes Kidney disease Father Diabetes Surgical History History of appendectomy History of cholecystectomy H/O vascular surgery H/O gastric bypass S/P cholecystectomy S/P appendectomy Social History household members: none Smoking Status: Former smoker how long ago did patient quit smoking: Quit age 24. alcohol intake: never substance use type: does not use ROS ROS ED Constitutional Constitutional ED: Denies chills or fever(s) Eyes Eyes: Denies blurry vision or change in vision ENT ENT ED: Denies rhinorrhea or sore throat Cardiovascular Cardiovascular: Denies chest pain or palpitations Respiratory/Chest Respiratory/Chest: Denies cough or dyspnea Gastrointestinal Gastrointestinal: Denies nausea or vomiting Genitourinary Genitourinary ED: Denies dysuria or hematuria Musculoskeletal Musculoskeletal: Reports neck pain; Denies back pain Integumentary Denies abscess or rash Neurologic Neurologic: Reports headache(s); Denies weakness Allergic/Immunologic Allergic/Immunologic ED: Denies mouth swelling or urticaria EXAM Physical Exam Const Vital Signs: 10/31/23 06:46 10/31/23 06:54 Temperature 98.3 F Temperature Source Oral Pulse Rate 94 Respiratory Rate 16 Respiratory Effort Normal Respiratory Depth Normal Respiratory Pattern Normal Blood Pressure 148/71 H Blood Pressure Mean 96 Pulse Ox 99 Oxygen Delivery Method Room Air Room Air Positive well nourished and well developed General Appearance ED: well developed and NAD HEENT Reports normocephalic HEENT Narrative: There is mild tenderness over the right rastafarian area and periorbital area. There is no bony crepitance or step-off. There is no edema or ecchymosis noted. Eyes PERRL and EOMs intact bilaterally Neck full ROM Neck Narrative: There is tenderness over the right cervical paraspinal muscles. There is no midline tenderness. There is no bony crepitance or step-off. Range of motion was limited in all motions of the cervical spine secondary to pain. Strength is 5/5 bilateral in the upper and lower extremities. There are no sensory deficits noted. General: tenderness Resp normal respiratory effort and clear to auscultation bilaterally Cardio regular rate and regular rhythm Extremity Extremity Narrative: There is tenderness to palpation of the lateral aspect of the right lower leg. There is no bony crepitance or step-off. There is slight edema. There is no ecchymosis noted. There is good range of motion of the right knee and right ankle. Pedal pulses are equal bilaterally. Sensation was intact to light touch. Strength is 5/5 bilaterally. Neuro oriented x3, CN's II-XII intact bilaterally, moves all extremities, no focal motor deficits and no sensory deficits noted [place] Coma Scale: document GCS findings Spontaneous Obeys Commands Oriented 15 Sensorium / Orientation: alert Motor Exam: strength 5/5 throughout Psych mental status grossly normal MDM MDM MDM Narrative Medical decision making narrative: Differential diagnosis includes intracranial bleeding, closed head injury, cervical spine fracture, cervical strain, right leg contusion, and occult fracture right leg. X-rays of the right tibia and fibula will be obtained to assess for fracture. CT scan of the brain will be obtained to assess for intracranial bleeding. CT scan of the cervical spine will be obtained to assess for cervical spine fracture. Radiography Diagnostic Testing: Clinical Impression(s) from Imaging Studies Cervical Spine CT 10/31/23 07:26 IMPRESSION: Multilevel degenerative changes as described with borderline central canal stenosis from C3-4 through C5-6 due to combination of degenerative factors and broad-based central disc bulges. No acute fracture or suspicious osseous lesion Electronically Signed: Rolando Rosado MD at 8:17 EDT , Tibia/Fibula X-Ray 10/31/23 07:26 IMPRESSION: Stable surgical hardware in the proximal tibia. The previously noted fracture demonstrates anatomic alignment and has nearly healed. No acute fracture, hardware complication or failure noted Previously noted proximal fibular fracture has healed Persistent demineralization of the distal tibia-fibula and talus could be seen with reflex synthetic dystrophy. Electronically Signed: Rolando Rosado MD at 8:44 EDT , CT scan of the brain was obtained. There is no acute intracranial abnormality. This was interpreted by the radiologist and was also independently reviewed by myself. X-rays of the right tibia-fibula were obtained. There are 2 views. On my independent interpretation, there is no acute fracture. There are healed fractures with hardware in place. Radiologist also interpreted the x-rays and agrees. CT scan of the cervical spine was obtained. There are multilevel level degenerative changes. There is no acute fracture. There is no soft tissue swelling. This was interpreted by the radiologist and was also independently reviewed by myself. Treatment and Re-Evaluation Narrative: Patient was given a dose of Tylenol here. Patient was advised of her findings. Patient was instructed use ice to the area. Patient was instructed to continue with Tylenol and ibuprofen as needed for pain. Patient was instructed to follow-up with her primary care physician in 5 to 7 days. Patient understood and was agreeable with plan. All questions were answered. Discharge Plan Triage Chief Complaint: Fall ED Provider: Sylvester Winston Dx/Rx/DC Orders Clinical Impression: Closed head injury, Acute cervical myofascial strain, Contusion of lower leg, right Instructions: ED Contusion, Lower Extremity, ED Head Injury (Adult), ED Neck Sprain or Strain Prescriptions: No Action cholecalciferol (vitamin D3) [Vitamin D3] 1,000 UNIT capsule 5,000 unit PO DAILY omeprazole 20 MG capsule 20 mg PO DAILY glipizide 5 MG tablet 10 mg PO DAILY melatonin 5 MG capsule 5 mg PO QHS atorvastatin 40 mg tablet 40 mg PO QHS calcitriol 0.25 mcg capsule 0.25 mcg PO BID Trulicity 1.5 mg/0.5 mL pen injector 1.5 mg SUBCUT CORNELL Patient Comments: PT STATED HASNT USED IN TWO WEEKS amitriptyline 100 mg tablet 100 mg PO QHS docusate sodium [DOK] 100 mg capsule 100 mg PO DAILY Qty: 20 0RF sevelamer carbonate 800 mg tablet 1,600 mg PO TID labetalol 100 mg tablet 100 mg PO BID acetaminophen [Tylenol] 325 mg capsule 650 mg PO Q6H ondansetron HCl 4 mg tablet 4 mg PO Q8H PRN PRN (Reason: nausea and vomiting) clindamycin HCl [Cleocin HCl] 300 mg capsule 300 mg PO Q6H Qty: 40 0RF oxycodone-acetaminophen 5-325 mg tablet 1 tab PO Q6H PRN PRN (Reason: Pain) 3 Days Qty: 12 0RF aspirin 81 mg capsule 81 mg PO DAILY hydroxyzine HCl 50 mg tablet 50 mg PO QHS sertraline 50 mg tablet 50 mg PO DAILY Vitamin Plus Low Iron 27 mg iron- 1 mg tablet 1 tab PO DAILY Primary Care Provider: Aki Archibald Referrals: Aki Archibald MD [Primary Care Provider] - 3-5 Days Print Language: Citizen Of [place] Disposition Disposition: Home, Self Care
--- NOTE | 2023-10-31 07:26 | RAD_ITS ---
STUDY: X-RAY - RIGHT TIBIA AND FIBULA REASON FOR EXAM: Female, 58 years old. Known fracture, pain TECHNIQUE: 2 view(s) of the tibia and fibula were obtained. COMPARISON: 07/24/2023. FINDINGS: Patient has suffered a previously described surgically reduced proximal tibial fracture with metallic side plates and multiple screws. Hardware is intact and free of complication. Alignment at the fracture site is anatomic, there has been continued healing since the previous study but there are still subtle lucencies within the proximal tibia suggests incomplete osseous union has yet to occur. Previously described proximal fibular fracture has healed. There is persistent demineralization of the distal tibia-fibula and talus which could be seen with reflex synthetic dystrophy. RAD/Tibia & Fibula 2 Views IMPRESSION: Stable surgical hardware in the proximal tibia. The previously noted fracture demonstrates anatomic alignment and has nearly healed. No acute fracture, hardware complication or failure noted Previously noted proximal fibular fracture has healed Persistent demineralization of the distal tibia-fibula and talus could be seen with reflex synthetic dystrophy. Electronically Signed: Rolando Rosado MD at 8:44 EDT ,
--- NOTE | 2023-10-31 07:26 | CT_ITS ---
STUDY: CT BRAIN WITHOUT CONTRAST REASON FOR EXAM: Female, 58 years old. Severe headache RADIATION DOSAGE (If Supplied By Facility): CTDIvol = ( 44.99 ) mGy, DLP = ( 796.11 ) mGycm TECHNIQUE: Transaxial CT imaging of the brain was performed without administration of intravenous contrast material. Individualized dose optimization techniques were used for this CT. COMPARISON: No relevant priors. FINDINGS: Normal soft tissue structures. Normal calvarium. Normal size ventricles and extra-axial spaces for the patient''s age. Normal white matter tracts of the cerebral hemispheres. Normal basal ganglia and thalami. Normal brainstem. Normal cerebellum. There is no intracranial hemorrhage. There are no findings of an acute ischemic infarction. Normal visualized paranasal sinuses. CT/Brain/Head without Contrast IMPRESSION: No acute intracranial hemorrhage, midline shift or mass effect. Electronically Signed: Rolando Rosado MD at 8:12 EDT ,
--- NOTE | 2023-10-31 07:26 | CT_ITS ---
STUDY: CT CERVICAL SPINE WITHOUT CONTRAST REASON FOR EXAM: Female, 58 years old. injury/pain RADIATION DOSAGE (If Supplied By Facility): CTDIvol = ( 23.94 ) mGy, DLP = ( 485.77 ) mGycm TECHNIQUE: High resolution transaxial imaging was performed without contrast material. Sagittal and coronal images were reconstructed. Individualized dose optimization techniques were used for this CT. COMPARISON: None FINDINGS: Normal craniovertebral junction. There are degenerative changes of the anterior atlantoaxial articulation. Normal odontoid process. There is straightening of the normal cervical lordosis, likely positional or due to pain. Normal vertebral bodies and posterior osseous elements. C2-3: Normal endplates. Normal disc height and morphology. Normal central canal and intervertebral neuroforamina. C3-4: Sclerotic endplate changes with broad-based partially calcified disc bulge. There is impingement upon and flattening the anterior aspect of the thecal sac with the central canal measuring 9 mm at this level. There is bilateral foraminal narrowing due to the disc bulge and facet joint hypertrophy. C4-5: Irregular endplates with disc space narrowing and broad-based central disc bulge. There is impingement upon and flattening of the anterior aspect of the thecal sac, the central canal measures 9.4 mm at this level. There is bilateral foraminal narrowing due to the disc bulge and facet joint hypertrophy. C5-6: Normal endplates. Mild disc space narrowing with a broad-based central disc bulge. This is impinging upon and flattening the anterior aspect of the thecal sac. The central canal measures 1 cm at this level. There is bilateral foraminal narrowing due to the prominent disc bulge and facet joint hypertrophy. C6-7: Normal endplates. Disc space narrowing without central canal narrowing, there is bilateral foraminal narrowing due to facet joint hypertrophy. C7-T1: Normal endplates. Disc space narrowing.. Normal central canal and intervertebral neuroforamina. Dense calcifications noted in the periphery of the distal vertebral arteries. Peripheral calcification is noted in the carotid artery bulbs. No airway narrowing or deviation. Thyroid gland is unremarkable, lung apices are clear. CT/Spine Cervical without Contras IMPRESSION: Multilevel degenerative changes as described with borderline central canal stenosis from C3-4 through C5-6 due to combination of degenerative factors and broad-based central disc bulges. No acute fracture or suspicious osseous lesion Electronically Signed: Rolando Rosado MD at 8:17 EDT ,
[2023-10-31] MEDS: Acetaminophen 500 MG Tablet 1000 MG PO (09:40)
[2023-10-31 09:42] VITALS: BP 160/70; PULSE 88; RESP 16; TEMP 36.3; O2SAT 100
== END 2023-10-31 09:52 | disposition home or self-care (01) ==
PROVIDERS: Emergency Provider Emergency Medicine; PCP Family Medicine; Visit Provider Emergency Medicine
DX: S09.90XA Unspecified injury of head, initial encounter (principal); N18.6 End stage renal disease; I12.0 Hypertensive chronic kidney disease with stage 5 chronic kidney disease or end stage renal disease; J44.9 Chronic obstructive pulmonary disease, unspecified; E11.22 Type 2 diabetes mellitus with diabetic chronic kidney disease; E11.40 Type 2 diabetes mellitus with diabetic neuropathy, unspecified; E78.5 Hyperlipidemia, unspecified; W18.30XA Fall on same level, unspecified, initial encounter; Z87.891 Personal history of nicotine dependence; S16.1XXA Strain of muscle, fascia and tendon at neck level, initial encounter; S80.11XA Contusion of right lower leg, initial encounter; K21.9 Gastro-esophageal reflux disease without esophagitis; Z99.2 Dependence on renal dialysis
CPT/HCPCS: 70450; 72125; 73590; 99282

== ENCOUNTER 2023-11-02 22:01 | Emergency (ER) | payer BC, SELFPAY ==
[2023-11-02 22:03] VITALS: BP 144/67; PULSE 78; RESP 16; TEMP 36.6; O2SAT 98; BMI 29.7
--- NOTE | 2023-11-02 22:18 | CT_ITS ---
INDICATION: injury EXAMINATION: CT Spine Cervical W/O Contrast Injection TECHNIQUE: Helically acquired images were obtained of the cervical spine with sagittal and coronal reconstructed images. Individualized dose optimization techniques were used for this CT. IV contrast dosage and agent: None. COMPARISON: 10/31/2023 CT. FINDINGS: VERTEBRAE: No fracture or subluxation. The craniocervical junction is unremarkable. Moderate to severe degenerative changes. NECK SOFT TISSUES: The prevertebral soft tissues are unremarkable. No pathologically enlarged lymph nodes. THYROID: Unremarkable. LUNG APICES: Unremarkable. CT/Spine Cervical without Contras IMPRESSION: No fracture or subluxation. Electronically Signed: Sha Adkins DO at 0:16 EDT ,
--- NOTE | 2023-11-02 22:18 | CT_ITS ---
INDICATION: head injury EXAMINATION: CT BRAIN - CT Head or Brain W/O Contrast Injection TECHNIQUE: Multiple axial images were obtained of the head with sagittal and coronal reconstructed images. Individualized dose optimization techniques were used for this CT. IV contrast dosage and agent: None. COMPARISON: 10/31/2023 CT. FINDINGS: BRAIN PARENCHYMA: No evidence of an acute infarct or intracranial hemorrhage. No evidence of a mass. CSF SPACES: The ventricles, sulci and subarachnoid cisterns are appropriate for age. CALVARIUM, SKULL BASE, PARANASAL SINUSES AND MASTOID AIR CELLS: No fracture. Mastoid air cells are clear. Right maxillary sinus mucous retention cyst. Right frontal/right supraorbital scalp hematoma. ORBITS: The globes, extraocular muscles, optic nerves and retrobulbar fat are unremarkable. CT/Brain/Head without Contrast IMPRESSION: No fracture or acute intracranial abnormality. Electronically Signed: Sha Adkins DO at 0:10 EDT ,
--- NOTE | 2023-11-02 22:18 | RAD_ITS ---
INDICATION: pain EXAMINATION/TECHNIQUE: X-RAY - RIGHT XR Knee 3 Views COMPARISON: 10/31/2023. FINDINGS: SOFT TISSUES: Vascular calcifications. Small suprapatellar effusion. BONES/JOINTS: Stable subacute healing fracture of the proximal tibia and stable surrounding internal fixation hardware. Stable chronic/healed fracture of the proximal fibula. RAD/Knee 3 Views IMPRESSION: 1. No evidence of an acute fracture or dislocation. 2. Stable subacute healing fracture of the proximal tibia with associated internal fixation hardware. 3. Small effusion. Electronically Signed: Sha Adkins DO at 0:05 EDT ,
[2023-11-02] MEDS: oxyCODONE 5 MG Tablet PO (23:01)
--- NOTE | 2023-11-03 00:19 | EDS_ITS ---
HPI History of Present Illness Chief Complaint: Fall Informant: patient and EMS Narrative Narrative: Patient is a 58-year-old female with past medical history of hypertension hyperlipidemia and diabetes as well as end-stage renal disease on dialysis. She states roughly 1 hour prior to arrival she was walking when she tripped and fell and struck the front of her head on the corner of her bed frame. She denies any loss of consciousness or history of bleeding disorder or blood thinner use. She states she was able to get back up following the injury but with the head trauma had concern for potential brain bleed or skull fracture and called EMS to be brought in for evaluation. She denies any light sensitivity nausea or vomiting or change in vision at this time. [facility] Medical History Fracture of fibula, right, closed Anemia Hyperkalemia Osteoarthritis of right knee Pathological fracture, right tibia, initial encounter for fracture Diabetes Dialysis patient Kidney disease GERD (gastroesophageal reflux disease) Sleep apnea Former smoker Asthma DVT (deep venous thrombosis) ESRD (end stage renal disease) on dialysis Fracture of right lower extremity Inability to walk Diabetes mellitus, type 2 Obesity Chronic anemia COPD with asthma Bipolar disorder Anxiety and depression HLD (hyperlipidemia) HTN (hypertension) Former tobacco use Neuropathy Fibromyalgia Kidney disease, chronic, stage IV (GFR 15-29 ml/min) History of tobacco use History of diabetes mellitus, type II History of COPD History of bipolar disorder Benign essential hypertension History of asthma Home Medications ?Medication ?Instructions ?Recorded ?Last Taken ?Type cholecalciferol (vitamin D3) 25 5,000 unit PO DAILY SUPPLEMENT 10/03/13 01/18/23 History mcg (1,000 unit) capsule (Vitamin D3) omeprazole 20 mg capsule,delayed 20 mg PO DAILY 08/23/14 01/18/23 History release glipizide 5 mg tablet 10 mg PO DAILY DIABETES 04/28/15 01/18/23 History melatonin 5 mg capsule 5 mg PO QHS 05/27/16 01/18/23 History amitriptyline 100 mg tablet 100 mg PO QHS DEPRESSION 09/10/22 01/18/23 History atorvastatin 40 mg tablet 40 mg PO QHS CHOLESTEROL 09/10/22 01/18/23 History calcitriol 0.25 mcg capsule 0.25 mcg PO BID 09/10/22 01/18/23 History dulaglutide 1.5 mg/0.5 mL 1.5 mg subcut CORNELL DIABETES 09/10/22 01/18/23 History subcutaneous pen injector (Trulicity) docusate sodium 100 mg capsule 100 mg PO DAILY STOOL SOFTENER #20 01/15/23 Unknown Rx (DOK) CAPSULES labetalol 100 mg tablet 100 mg PO BID blood pressure 02/04/23 Unknown History sevelamer carbonate 800 mg tablet 1,600 mg PO TID 02/04/23 Unknown History aspirin 81 mg capsule 81 mg PO DAILY 06/29/23 Unknown History hydroxyzine HCl 50 mg tablet 50 mg PO QHS 06/29/23 Unknown History vitamin with calcium 1 tab PO DAILY 06/29/23 Unknown History no.72-iron 27 mg-folic acid 1 mg tablet ( Vitamins Plus Low Iron) sertraline 50 mg tablet 50 mg PO DAILY 06/29/23 Unknown History acetaminophen 325 mg capsule 650 mg PO Q6H 07/02/23 Unknown History (Tylenol) ondansetron HCl 4 mg tablet 4 mg PO Q8H PRN PRN nausea and 07/02/23 Unknown History vomiting clindamycin HCl 300 mg capsule 300 mg PO Q6H #40 CAPSULES 07/24/23 Unknown Rx (Cleocin HCl) oxycodone-acetaminophen 5 mg-325 1 tab PO Q6H PRN PRN Pain 3 days 07/24/23 Unknown Rx mg tablet #12 TABLETS oxycodone 5 mg capsule 5 mg PO Q6H PRN pain 3 days #12 11/03/23 Unknown Rx caps Allergy/AdvReac Type Severity Reaction Status Date / Time ewing carin Allergy Unknown UNKNOWN Verified 11/02/23 22:08 mold Allergy Unknown unknown Verified 11/02/23 22:08 lisinopril Allergy unknown Verified 11/02/23 22:08 Penicillins Allergy Anaphylaxis Verified 11/02/23 22:08 tetracycline (Tetracycline) Allergy Anaphylaxis Verified 11/02/23 22:08 codeine AdvReac Abd Verified 11/02/23 22:08 cramps/diarrhea diphenhydramine HCl (From AdvReac Upset Verified 11/02/23 22:08 Benadryl) Stomach hydrocodone bitartrate (From AdvReac Abd Verified 11/02/23 22:08 Vicodin) cramps/diarrhea NSAIDS (Non-Steroidal AdvReac Unknown Verified 11/02/23 22:08 Anti-Inflamma Family History Mother Heart disease Hypertension Diabetes Kidney disease Father Diabetes Surgical History History of appendectomy History of cholecystectomy H/O vascular surgery H/O gastric bypass S/P cholecystectomy S/P appendectomy Social History household members: none Smoking Status: Former smoker how long ago did patient quit smoking: Quit age 24. alcohol intake: never substance use type: does not use ROS ROS ED Constitutional Constitutional ED: Denies chills or fever(s) Eyes Eyes: Denies blurry vision, change in vision or diplopia ENT ENT ED: Denies sore throat Cardiovascular Cardiovascular: Denies chest pain Respiratory/Chest Respiratory/Chest: Denies cough or dyspnea Gastrointestinal Gastrointestinal: Denies abdominal pain, diarrhea, nausea or vomiting Genitourinary Genitourinary ED: Denies dysuria Musculoskeletal Musculoskeletal: Reports neck pain and other Details: Positive right knee pain Integumentary Reports Abrasions Neurologic Neurologic: Reports headache(s); Denies paresthesias or weakness Hematologic/Lymphatic Hematologic/Lymphatic: Denies easy bleeding or easy bruising EXAM Physical Exam Const Vital Signs: 11/02/23 22:03 11/02/23 22:06 11/03/23 00:36 Temperature 97.9 F 97.9 F Temperature Source Temporal Pulse Rate 78 67 Respiratory Rate 16 18 Respiratory Effort Normal Blood Pressure 144/67 H 168/87 H Blood Pressure Mean 92 114 Pulse Ox 98 100 Oxygen Delivery Method Room Air Room Air Positive well nourished and well developed General Appearance ED: well developed; Negative for pallor HEENT HEENT Narrative: 2 x 3 hematoma to the right frontal portion of the skull/scalp consistent with recent trauma No signs of depressed or basilar skull fracture No septal hematoma Eyes PERRL and EOMs intact bilaterally Eyes Narrative: No hyphema Neck supple Neck Narrative: No bony deformity or step-off of the cervical spine but there is midline pain with palpation Chest Wall palpation of chest normal Chest Narrative: No bony deformity or crepitus noted Resp normal respiratory effort and clear to auscultation bilaterally Cardio regular rate and regular rhythm GI normal to inspection, nondistended, normoactive bowel sounds, non-tender, non- distended and no masses Auscultation: normoactive bowel sounds Palpation: soft Back/Spine Back/Spine Narrative: No bony deformity or step-off of the thoracic or lumbar spine no midline tenderness to palpation Extremity Extremity Narrative: Pelvis is stable there is no shortening or external rotation of either lower extremity Patient has mild soft tissue swelling with ecchymosis to the dorsal aspect of the right knee. There is no obvious fracture or dislocation or joint effusion. Patellar tendon is intact and knee ligaments are stable Neuro oriented x3, CN's II-XII intact bilaterally and no sensory deficits noted Sensorium / Orientation: alert Motor Exam: strength 5/5 throughout Psych mental status grossly normal Skin no rashes or lesions noted Skin Narrative: Hematoma to the right frontal portion of the scalp with superficial abrasion to the right knee as documented above General Skin Exam: Negative for jaundice or pallor MDM MDM MDM Narrative Medical decision making narrative: Patient arrived to the ER mildly hypertensive but otherwise with stable vitals. She reported mechanical fall and therefore there is no need for cardiac or syncope workup. With trauma to the head there is concern for traumatic skull fracture versus subdural or epidural hematoma. With neck pain there is also concern for a compression fracture or spondylolisthesis. With pain to the right knee there is concern for periprosthetic fracture versus patellar fracture versus joint effusion. Therefore imaging studies were obtained and revealed no secondary findings of trauma. On reevaluation patient remains awake and alert with stable vitals and as workup shows no signs of underlying trauma she is otherwise safe to return home. History & Record Review Discussion w/independent historian: EMS personnel and Patient Radiography Diagnostic Testing: Clinical Impression(s) from Imaging Studies Brain CT 11/02/23 22:18 IMPRESSION: No fracture or acute intracranial abnormality. Electronically Signed: Sha Adkins DO at 0:10 EDT , Cervical Spine CT 11/02/23 22:18 IMPRESSION: No fracture or subluxation. Electronically Signed: Sha Adkins DO at 0:16 EDT , Knee X-Ray 11/02/23 22:18 IMPRESSION: 1. No evidence of an acute fracture or dislocation. 2. Stable subacute healing fracture of the proximal tibia with associated internal fixation hardware. 3. Small effusion. Electronically Signed: Sha Adkins at 0:05 EDT , X-ray of the right knee as interpreted by the emergency medicine physician reveals no acute fracture or dislocation or derangement to internal hardware Discharge Plan Triage Chief Complaint: Fall ED Provider: Minh Arroyo Dx/Rx/DC Orders Clinical Impression: Closed head injury, Acute cervical myofascial strain, Hematoma of frontal scalp, Contusion of knee, right, Accidental fall, Hypertension, End stage renal disease on dialysis, Type 2 diabetes mellitus Instructions: Bone Contusion, ED Head Injury (Adult), ED Hematoma Prescriptions: New oxycodone 5 mg capsule 5 mg PO Q6H PRN (Reason: pain) 3 Days Qty: 12 0RF No Action cholecalciferol (vitamin D3) [Vitamin D3] 1,000 UNIT capsule 5,000 unit PO DAILY omeprazole 20 MG capsule 20 mg PO DAILY glipizide 5 MG tablet 10 mg PO DAILY melatonin 5 MG capsule 5 mg PO QHS atorvastatin 40 mg tablet 40 mg PO QHS calcitriol 0.25 mcg capsule 0.25 mcg PO BID Trulicity 1.5 mg/0.5 mL pen injector 1.5 mg SUBCUT CORNELL Patient Comments: PT STATED HASNT USED IN TWO WEEKS amitriptyline 100 mg tablet 100 mg PO QHS docusate sodium [DOK] 100 mg capsule 100 mg PO DAILY Qty: 20 0RF sevelamer carbonate 800 mg tablet 1,600 mg PO TID labetalol 100 mg tablet 100 mg PO BID acetaminophen [Tylenol] 325 mg capsule 650 mg PO Q6H ondansetron HCl 4 mg tablet 4 mg PO Q8H PRN PRN (Reason: nausea and vomiting) clindamycin HCl [Cleocin HCl] 300 mg capsule 300 mg PO Q6H Qty: 40 0RF oxycodone-acetaminophen 5-325 mg tablet 1 tab PO Q6H PRN PRN (Reason: Pain) 3 Days Qty: 12 0RF aspirin 81 mg capsule 81 mg PO DAILY hydroxyzine HCl 50 mg tablet 50 mg PO QHS sertraline 50 mg tablet 50 mg PO DAILY Vitamin Plus Low Iron 27 mg iron- 1 mg tablet 1 tab PO DAILY Primary Care Provider: Aki Archibald Referrals: Aki Archibald MD [Primary Care Provider] - Activity Restrictions/Additional Instructions: Your images displayed no signs of skull fracture or brain bleed or broken bone. Continue your home medications as directed by your doctor and return to the ER should you have any further concerns Print Language: German Disposition Disposition: Home, Self Care Discharge Date/Time: 11/03/23 00:38
[2023-11-03 00:36] VITALS: BP 168/87; PULSE 67; RESP 18; TEMP 36.6; O2SAT 100
== END 2023-11-03 00:38 | disposition home or self-care (01) ==
PROVIDERS: Emergency Provider Emergency Medicine; PCP Family Medicine; Visit Provider Emergency Medicine
DX: S09.90XA Unspecified injury of head, initial encounter (principal); N18.6 End stage renal disease; I12.0 Hypertensive chronic kidney disease with stage 5 chronic kidney disease or end stage renal disease; J44.9 Chronic obstructive pulmonary disease, unspecified; E11.22 Type 2 diabetes mellitus with diabetic chronic kidney disease; E11.40 Type 2 diabetes mellitus with diabetic neuropathy, unspecified; Z99.2 Dependence on renal dialysis; Z87.891 Personal history of nicotine dependence; E78.5 Hyperlipidemia, unspecified; S16.1XXA Strain of muscle, fascia and tendon at neck level, initial encounter; W01.190A Fall on same level from slipping, tripping and stumbling with subsequent striking against furniture, initial encounter; K21.9 Gastro-esophageal reflux disease without esophagitis; R51.9 Headache, unspecified; S00.03XA Contusion of scalp, initial encounter; S80.01XA Contusion of right knee, initial encounter
CPT/HCPCS: 70450; 72125; 73562; 99282

== ENCOUNTER 2024-03-17 10:59 | Observation (INO) | payer MEDICARE, MEDICAID, SELFPAY ==
[2024-03-17] VITALS (16 sets, daily range): BP systolic 120–204; BP diastolic 70–98; PULSE 83–100; RESP 11–18; TEMP 36.6–37.2; O2SAT 93–100; BMI 27.4; BMI 28.8
--- NOTE | 2024-03-17 11:04 | CT_ITS ---
STUDY: STROKE PROTOCOL CT BRAIN WITHOUT CONTRAST REASON FOR EXAM: Female, 58 years old. Neuro deficit, acute, stroke suspected RADIATION DOSAGE (If Supplied By Facility): CTDIvol = ( ) mGy, DLP = ( ) mGycm TECHNIQUE: Transaxial CT imaging of the brain was performed without administration of intravenous contrast material. Individualized dose optimization techniques were used for this CT. COMPARISON: Head CT dated November 02, 2023 FINDINGS: Major intracranial venous sinuses: No abnormal hyperdensity MCA and basilar arteries assessment: No abnormal hyperdensity No visualized extra-axial fluid collection or subdural hemorrhage. Normal soft tissue structures. Normal calvarium. There is mild cerebral atrophy with widening of the extra-axial spaces and ventricular dilatation. There are areas of decreased attenuation within the white matter tracts of the supratentorial brain, consistent with microvascular disease changes. Normal basal ganglia and thalami. Normal brainstem. Normal cerebellum. There is no demonstrated sulcal effacement or parenchymal edema. There is no intracranial hemorrhage. There are no findings of an acute ischemic infarction. There is mucoperiosteal inflammatory disease of the paranasal sinuses consistent with mild chronic sinusitis. ASPECTS Score for Acute Strokes: 10 CT/STROKE Brain/Head without Cont IMPRESSION: 1. Chronic ischemic and involutional changes of the brain. 2. Concern for stroke/positive symptomatology should be further evaluated with CT brain perfusion/CTA or MRI of the brain for further assessment. N.B. : The above Results were Read Back by Ángel Vasquez MD to Neymar Toledo DO, and understanding confirmed on 03/17/2024 11:23:30 (ET). Electronically Signed: Ángel Vasquez MD at 11:24 EST Reading Location ID and State: [facility] / [place] , Service support ,
[2024-03-17 11:11] LABS: Absolute Lymphocyte Count 1.71 X10^3/uL (0.83-4.51); Absolute Neutrophil Count 3.6 X10^3/uL (2.0-7.7); Basophil# 0.04 X10^3/uL; Basophil% 0.7 % (0-1); Eosinophil# 0.13 X10^3/uL; Eosinophils% 2.2 % (0-5); Hematocrit 33.5 % (37-47); Hemoglobin 11.2 g/dL (12.0-15.0); Lymphocyte # 1.71 X10^3/ul (0.83-4.51); Lymphocyte % 28.7 % (19-41); Mean Corp Hgb Conc 33.4 g/dL (32-36); Mean Corpuscular Hgb 31.7 pg (27.0-32.0); Mean Corpuscular Volume 94.9 fL (81-99); Mean Platelet Vol. 9.9 fl (6.2-12.0); Monocyte# 0.42 X10^3/uL; Monocyte% 7.1 % (0-10); NRBC Flagged by Analyzer 0 % (0-5); Neutrophil # 3.63 X10^3/uL (2.7-7.7); Platelet Count 186 K/mm3 (150-450); RBC Distribution Width CV 12.1 % (11.6-14.6); RBC Distribution Width SD 41.7 fl (35.1-43.9); Red Blood Count 3.53 M/mm3 (4.2-5.4)
--- NOTE | 2024-03-17 11:24 | EDS_ITS ---
HPI History of Present Illness Chief Complaint: Neuro S/Sx Informant: patient Narrative Narrative: 58-year-old female arriving by EMS from the dialysis center with a prehospital stroke alert. Patient was nearing the end of dialysis when she stated that her left hand became numb. She states she still had movement in it. She states she was not concerned with that as she has had some problems with her fistula lately but not numbness in the hands. It was more problems with pain and flow. She states that the nurses there reported that she had left facial droop and slurred speech. She did not noticed the facial droop but she did noticed that her speech was slurred. By time EMS arrived her speech had improved as did her hand symptoms. However once in the ambulance on the way to the hospital her speech became slurred again. Now she states she is feeling fine. She states she is not on any blood thinners. She has no headache. She reports that she is experiencing some abdominal cramping and that my fibromyalgia is flaring. [facility] Medical History Fracture of fibula, right, closed Anemia Hyperkalemia Osteoarthritis of right knee Pathological fracture, right tibia, initial encounter for fracture Diabetes Dialysis patient Kidney disease GERD (gastroesophageal reflux disease) Sleep apnea Former smoker Asthma DVT (deep venous thrombosis) ESRD (end stage renal disease) on dialysis Fracture of right lower extremity Inability to walk Diabetes mellitus, type 2 Obesity Chronic anemia COPD with asthma Bipolar disorder Anxiety and depression HLD (hyperlipidemia) HTN (hypertension) Former tobacco use Neuropathy Fibromyalgia Kidney disease, chronic, stage IV (GFR 15-29 ml/min) History of tobacco use History of diabetes mellitus, type II History of COPD History of bipolar disorder Benign essential hypertension History of asthma Home Medications ?Medication ?Instructions ?Recorded ?Last Taken ?Type cholecalciferol (vitamin D3) 25 5,000 unit PO DAILY SUPPLEMENT 10/03/13 01/18/23 History mcg (1,000 unit) capsule (Vitamin D3) omeprazole 20 mg capsule,delayed 20 mg PO DAILY 08/23/14 01/18/23 History release glipizide 5 mg tablet 10 mg PO DAILY DIABETES 04/28/15 01/18/23 History melatonin 5 mg capsule 5 mg PO QHS 05/27/16 01/18/23 History amitriptyline 100 mg tablet 100 mg PO QHS DEPRESSION 09/10/22 01/18/23 History atorvastatin 40 mg tablet 40 mg PO QHS CHOLESTEROL 09/10/22 01/18/23 History calcitriol 0.25 mcg capsule 0.25 mcg PO DAILY 09/10/22 01/18/23 History dulaglutide 1.5 mg/0.5 mL 1.5 mg subcut CORNELL DIABETES 09/10/22 01/18/23 History subcutaneous pen injector (Trulicity) sevelamer carbonate 800 mg tablet 1,600 mg PO TID 02/04/23 Unknown History aspirin 81 mg capsule 81 mg PO DAILY 06/29/23 Unknown History hydroxyzine HCl 50 mg tablet 50 mg PO Q6H 06/29/23 Unknown History sertraline 50 mg tablet 50 mg PO DAILY 06/29/23 Unknown History acetaminophen 325 mg capsule 650 mg PO Q6H 07/02/23 Unknown History (Tylenol) ondansetron HCl 4 mg tablet 4 mg PO Q8H PRN PRN nausea and 07/02/23 Unknown History vomiting oxycodone-acetaminophen 5 mg-325 1 tab PO Q6H PRN PRN Pain 3 days 07/24/23 Unknown Rx mg tablet #12 TABLETS nifedipine 30 mg tablet,extended 30 mg PO DAILY 03/17/24 Unknown History release 24 hr Allergy/AdvReac Type Severity Reaction Status Date / Time [place] Allergy Unknown UNKNOWN Verified 03/17/24 11:09 mold Allergy Unknown unknown Verified 03/17/24 11:09 lisinopril Allergy unknown Verified 03/17/24 11:09 Penicillins Allergy Anaphylaxis Verified 03/17/24 11:09 tetracycline (Tetracycline) Allergy Anaphylaxis Verified 03/17/24 11:09 codeine AdvReac Abd Verified 03/17/24 11:09 cramps/diarrhea diphenhydramine HCl (From AdvReac Upset Verified 03/17/24 11:09 Benadryl) Stomach hydrocodone bitartrate (From AdvReac Abd Verified 03/17/24 11:09 Vicodin) cramps/diarrhea NSAIDS (Non-Steroidal AdvReac Unknown Verified 03/17/24 11:09 Anti-Inflamma Family History Mother Heart disease Hypertension Diabetes Kidney disease Father Diabetes Surgical History History of appendectomy History of cholecystectomy H/O vascular surgery H/O gastric bypass S/P cholecystectomy S/P appendectomy Social History household members: none Smoking Status: Never smoker how long ago did patient quit smoking: Quit age 24. alcohol intake: never substance use type: does not use ROS ROS ED Constitutional Constitutional ED: Denies chills, fever(s) or weight loss Eyes Eyes: Denies change in vision or diplopia ENT ENT ED: Denies ear pain, rhinorrhea or sore throat Cardiovascular Cardiovascular: Denies chest pain, orthopnea, palpitations or racing heartbeat Respiratory/Chest Respiratory/Chest: Denies cough, dyspnea or orthopnea Gastrointestinal Gastrointestinal: Denies abdominal pain, diarrhea, nausea or vomiting Genitourinary Genitourinary ED: Denies dysuria, hematuria or urinary frequency Musculoskeletal Musculoskeletal: Denies arthralgias or myalgias Integumentary Denies abscess or rash Neurologic Neurologic: Reports paresthesias LUE and other Details: Reported slurred speech and facial droop ; Denies headache(s) or weakness Psychiatric Psychiatric: Denies anxiety, depression, suicidal ideation or suicidal thoughts Endocrine Endocrinology: Denies polydipsia, polyphagia or polyuria Allergic/Immunologic Allergic/Immunologic ED: Denies mouth swelling, tongue swelling or urticaria EXAM Physical Exam Const Vital Signs: 03/17/24 11:00 03/17/24 11:04 03/17/24 11:10 Temperature 98 F Temperature Source Temporal Pulse Rate 88 88 Respiratory Rate 18 18 Blood Pressure 130/70 H 130/70 H Blood Pressure Mean 90 90 Pulse Ox 94 94 94 Oxygen Delivery Method Nasal Cannula Nasal Cannula Nasal Cannula Oxygen Flow Rate (L/min) 4 4 03/17/24 11:10 03/17/24 11:17 03/17/24 12:03 Temperature Temperature Source Pulse Rate 95 96 95 Respiratory Rate 18 11 L Blood Pressure 155/76 H Blood Pressure Mean 102 Pulse Ox 93 99 Oxygen Delivery Method Nasal Cannula Nasal Cannula Oxygen Flow Rate (L/min) 4 4 03/17/24 12:12 03/17/24 13:00 Temperature Temperature Source Pulse Rate 93 97 Respiratory Rate 14 18 Blood Pressure 120/98 H Blood Pressure Mean 105 Pulse Ox 100 99 Oxygen Delivery Method Room Air Oxygen Flow Rate (L/min) Positive well nourished and well developed General Appearance ED: well developed HEENT Reports normocephalic, head/scalp atraumatic and moist mucous membranes Eyes PERRL and EOMs intact bilaterally Neck no lymphadenopathy, supple and no JVD Resp normal respiratory effort and clear to auscultation bilaterally Cardio regular rate, regular rhythm and no murmurs GI normal to inspection, nondistended, normoactive bowel sounds and non-tender Palpation: soft Back/Spine no CVA tenderness and normal ROM Extremity normal to inspection General Extremety ED: Negative for edema General Extremity: Negative for edema Neuro oriented x3 and CN's II-XII intact bilaterally Sensorium / Orientation: alert Motor Exam: strength 5/5 throughout Psych mental status grossly normal Mood & Affect: Negative for depressed or tearful Skin no rashes or lesions noted and no wounds MDM MDM MDM Narrative Medical decision making narrative: Prehospital stroke team was called. I evaluated the patient in the ambulance bay. I scored her an NIH of 0. She was taken to head CT. Initial CT of the brain shows no acute findings. She was brought back to the room. I spoke with [facility]. We both concur that she is not a TNK candidate. Initial head CT read by radiology is negative for acute findings. CTA of the head neck was obtained is negative for acute/LVO. Basic blood work was obtained and reviewed. Her EKG is a normal sinus rhythm with a rate of 99 bpm. I will speak with the hospitalist regarding admission. Patient received a dose of aspirin per [facility] recommendations History & Record Review Discussion w/independent historian: EMS personnel and Patient Additional record(s) reviewed:: Prior inpatient record, Prior ED visit and Prior labs Lab Data Attestation: I reviewed the patient's lab results. Labs: Laboratory Results - last 24 hr 03/17/24 11:05 WBC 6.0 RBC 3.53 L Hgb 11.2 L Hct 33.5 L MCV 94.9 MCH 31.7 MCHC 33.4 RDW Std Deviation 41.7 RDW Coeff of Ben 12.1 Plt Count 186 MPV 9.9 Immature Gran % (Auto) 0.300 Neut % (Auto) 61.0 Lymph % (Auto) 28.7 [place] % (Auto) 7.1 Eos % (Auto) 2.2 Baso % (Auto) 0.7 Absolute Neuts (auto) 3.6 Absolute Lymphs (auto) 1.71 Nucleated RBC % 0 PT 12.3 INR 0.9 APTT 25.0 Sodium 135 L Potassium 3.6 Chloride 96 L Carbon Dioxide 31.0 Anion Gap 8 BUN 11 Creatinine 2.05 H Estim Creat Clear Calc 33.59 Est GFR (MDRD) Af Amer 32 L Est GFR (MDRD) Non-Af 26 L BUN/Creatinine Ratio 5.4 L Glucose 278 H Calcium 8.5 Troponin I High Sens 26 Radiography Diagnostic Testing: Clinical Impression(s) from Imaging Studies Brain CT 03/17/24 11:04 IMPRESSION: 1. Chronic ischemic and involutional changes of the brain. 2. Concern for stroke/positive symptomatology should be further evaluated with CT brain perfusion/CTA or MRI of the brain for further assessment. N.B. : The above Results were Read Back by Ángel Vasquez MD to Neymar Toledo DO, and understanding confirmed on 03/17/2024 11:23:30 (ET). Electronically Signed: Ángel Vasquez MD at 11:24 EST , ADDENDUM: 03/17/24 1131 IMPRESSION: 1. Chronic ischemic and involutional changes of the brain. 2. Concern for stroke/positive symptomatology should be further evaluated with CT brain perfusion/CTA or MRI of the brain for further assessment. N.B. : The above Results were Read Back by Ángel Vasquez MD to Neymar Toledo DO, and understanding confirmed on 03/17/2024 11:23:30 (ET). Electronically Signed: Ángel Vasquez MD at 11:24 EST , Head/Neck CTA 03/17/24 11:32 IMPRESSION: No significant stenosis, thrombosis, aneurysm or dissection involving the arteries of the head and neck. Electronically Signed: Minh Schmidt MD at 13:53 EST , Chest X-Ray 03/17/24 11:40 IMPRESSION: Degenerative changes, as described above. No demonstrated acute cardiopulmonary process. Electronically Signed: Ángel Vasquez MD at 12:22 EST , EKG Initial EKG: Attestation: I personally reviewed and interpreted this EKG as follows: Comments: Normal sinus rhythm ventricular rate of 99 bpm Management Discussion w/another healthcare provider: Hospitalist (Dr Blanchard), Assistant Branch Manager ([facility]) and Radiologist Discharge Plan Dx/Rx/DC Orders Clinical Impression: Brain TIA, ESRD (end stage renal disease) on dialysis Disposition Disposition: Acute Care Hospital [facility] NIHSS NIHSS 1a. Level of Consciousness: Alert; keenly responsive 1b. LOC Questions: Answers BOTH questions correctly. 2. Best Gaze: Normal 3. Visual: No visual loss 4. Facial Palsy: Normal symmetrical movements 5a. Left Arm: No drift; arm holds 90 (or 45) degrees for full 10 seconds 5b. Right Arm: No drift; arm holds 90 (or 45) degrees for full 10 seconds 6a. Left Leg: No drift; leg holds 30-degree position for full 5 seconds 6b. Right Leg: No drift; leg holds 30-degree position for full 5 seconds 7. Limb Ataxia: Absent 8. Sensory: Normal; no sensory loss 9. Best Language: No aphasia; normal 10. Dysarthria: Normal 11. Extinction and Inattention: No abnormality Total: 0
[2024-03-17 11:28] LABS: Anion Gap 8 (5-15); BUN 11 mg/dL (7-18); BUN/Creat Ratio 5.4 RATIO (10-20); Calcium,Total 8.5 mg/dL (8.5-10.1); Chloride 96 mmol/L (98-107); Creatinine, Serum 2.05 mg/dL (0.55-1.02); EST Glomerular Filtration Rate 26 mL/min (>60); Est Glom Filt Rate - Afr Amer 32 mL/min (>60); Estimated Creatinine Clearance 33.59 ml/min; Glucose 278 mg/dL (74-106); Potassium 3.6 mmol/L (3.5-5.1); Sodium Level 135 mmol/L (136-145); Troponin-I HS 26 pg/mL (3.0-54.0)
--- NOTE | 2024-03-17 11:32 | CT_ITS ---
EXAM: CT ANGIOGRAPHY HEAD AND NECK WITH INTRAVENOUS CONTRAST CLINICAL INDICATION: TIA TECHNIQUE: [place] [facility] [place]/head and neck CT angiography protocol performed with intravenous contrast. CTDIvol = ( 20.02 ) mGy, DLP = ( 747.42 ) mGycm This CT exam was performed using one or more of the following dose reduction techniques: automated exposure control, adjustment of the mA and/or kV according to patient size, and/or use of iterative reconstruction technique. MIP reconstructed images were created and reviewed. CONTRAST: IV 100mL [id number] COMPARISON: No relevant prior studies available. FINDINGS: HEAD: RIGHT ANTERIOR CEREBRAL ARTERY: Unremarkable. No occlusion or significant stenosis. Anterior communicating artery is present. No aneurysm. RIGHT MIDDLE CEREBRAL ARTERY: Unremarkable. No occlusion or significant stenosis. No aneurysm. RIGHT POSTERIOR CEREBRAL ARTERY: Unremarkable. No occlusion or significant stenosis. No aneurysm. RIGHT INTRACRANIAL INTERNAL CAROTID ARTERY: Unremarkable. No significant stenosis. No dissection or occlusion. RIGHT INTRACRANIAL VERTEBRAL ARTERY: Unremarkable. No significant stenosis. No dissection or occlusion. LEFT ANTERIOR CEREBRAL ARTERY: Unremarkable. No occlusion or significant stenosis. No aneurysm. LEFT MIDDLE CEREBRAL ARTERY: Unremarkable. No occlusion or significant stenosis. No aneurysm. LEFT POSTERIOR CEREBRAL ARTERY: Unremarkable. No occlusion or significant stenosis. No aneurysm. LEFT INTRACRANIAL INTERNAL CAROTID ARTERY: Unremarkable. No significant stenosis. No dissection or occlusion. LEFT INTRACRANIAL VERTEBRAL ARTERY: Unremarkable. No significant stenosis. No dissection or occlusion. BASILAR ARTERY: Unremarkable. No occlusion or significant stenosis. No aneurysm. OTHER VASCULATURE: Atherosclerotic calcifications of the carotid siphons bilaterally with no more than mild luminal narrowing. No vascular malformation. NECK: RIGHT COMMON CAROTID ARTERY: Coarse atherosclerotic calcifications involving the right common carotid artery distally extending into the carotid bulb/ICA with no more than mild luminal narrowing. RIGHT EXTRACRANIAL INTERNAL CAROTID ARTERY: See above. RIGHT EXTERNAL CAROTID ARTERY: Unremarkable. No occlusion. RIGHT EXTRACRANIAL VERTEBRAL ARTERY: Unremarkable. No significant stenosis. No dissection or occlusion. LEFT COMMON CAROTID ARTERY: Unremarkable. No significant stenosis. No dissection or occlusion. LEFT EXTRACRANIAL INTERNAL CAROTID ARTERY: Unremarkable. No significant stenosis. No dissection or occlusion. LEFT EXTERNAL CAROTID ARTERY: Unremarkable. No occlusion. LEFT EXTRACRANIAL VERTEBRAL ARTERY: Unremarkable. No significant stenosis. No dissection or occlusion. BRACHIOCEPHALIC AND SUBCLAVIAN ARTERIES: Unremarkable as visualized. No occlusion or significant stenosis. LUNG APICES: Unremarkable as visualized. HEAD and NECK: BONES/JOINTS: Unremarkable. No discrete lytic or blastic abnormalities. SOFT TISSUES: Unremarkable. OTHER FINDINGS: Multilevel spine degenerative changes with severe degenerative disc disease at C3-4 and C4-5. CAROTID STENOSIS REFERENCE USING NASCET CRITERIA: % ICA stenosis = (1 - narrowest ICA diameter/diameter of distal cervical ICA) x 100. Mild - <50% stenosis. Moderate - 50-69% stenosis. Severe - 70-94% stenosis. Near occlusion - 95-99% stenosis. Occluded - 100% stenosis. CT/CTA Head AND Neck W/ Contrast IMPRESSION: No significant stenosis, thrombosis, aneurysm or dissection involving the arteries of the head and neck. Electronically Signed: Minh Schmidt MD at 13:53 EST ,
[2024-03-17 11:33] LABS: International Normalized Ratio 0.9; Prothrombin Time (Protime)PT. 12.3 SECONDS (11.7-14.9)
--- NOTE | 2024-03-17 11:40 | RAD_ITS ---
STUDY: X-RAY CHEST REASON FOR EXAM: Female, 58 years old. Neuro deficit, acute, stroke suspected TECHNIQUE: Single AP portable view of the chest. COMPARISON: October 30, 2022 FINDINGS: No visualized consolidation. There are interstitial fibrotic changes of the lungs. There is no demonstrated pleural abnormality. Normal size heart. Normal mediastinum and stone. Normal visualized pulmonary arteries. There is atherosclerotic calcification of the aortic arch with tortuosity. There are diffuse degenerative changes of the visualized thoracic spine. Normal visualized ribs, clavicles, and shoulders. There is no demonstrated abnormality of the visualized soft tissue structures of the upper abdomen. RAD/Chest 1 View IMPRESSION: Degenerative changes, as described above. No demonstrated acute cardiopulmonary process. Electronically Signed: Ángel Vasquez MD at 12:22 EST ,
[2024-03-17] MEDS: Aspirin 325 MG Tablet PO (12:11)
[2024-03-17] MEDS: Acetaminophen 500 MG Tablet 1000 MG PO (14:40)
--- NOTE | 2024-03-17 15:38 | HP.PCM.HOS_ITS ---
HPI - General General Date of Admission: 03/17/24 Date of Service: 03/17/24 Chief Complaint: Left hand numbness HPI Narrative Margareth OLIVARES, is a 58 F who presented to the emergency department at [facility] on 03/17/2024 with a chief complaint of left hand numbness. Patient reported that while she was at dialysis towards the end of her dialysis she started having some left hand numbness. She had no motor deficit but sensory deficit was affected. She had no other motor or sensory deficits at that time. She does have a left upper extremity graft in the forearm. An outside prehospital stroke alert was called. Nurses reported at the dialysis center that she also had left facial droop and some slurred speech but she did not notice the had any facial droop she did appreciate that her speech was a bit slurred. By the time she arrived the emergency department here she reported all her symptoms had resolved. She had no complaints other than she felt like her fibromyalgia was flaring and she had some abdominal cramping which she states is not atypical for her after dialysis. Vital signs on presentation showed a temperature of 98, heart rate 88, blood pressure 130/70, respiratory rate was 18 and oxygen saturation was 94% on 4 L nasal cannula. Upon reevaluation she was 95% on room air. CBC was overtly unremarkable other than mild anemia which is stable. Coags were normal. She had mild hyponatremia which is chronic with her dialysis and her creatinine was 2.05 postdialysis today. Glucose was markedly elevated to 78. Troponin was 26. EKG showed no acute ischemic changes and no arrhythmia. CT of the brain showed chronic ischemic changes but no acute findings. CTA of the head and neck showed no significant stenosis or thrombus, aneurysm or dissection involving the arteries of the head and neck. Very mild right carotid artery stenosis with minimal luminal narrowing was noted. Chest x-ray was unremarkable for acute findings. NIH on initial evaluation emergency department was 0. Case was discussed with [facility] teleneurology and both ED and teleneurology concurred that she was not a tenecteplase candidate. It was recommended she be admitted for stroke rule out. [facility] Medical History Fracture of fibula, right, closed Anemia Hyperkalemia Osteoarthritis of right knee Pathological fracture, right tibia, initial encounter for fracture Diabetes Dialysis patient Kidney disease GERD (gastroesophageal reflux disease) Sleep apnea Former smoker Asthma DVT (deep venous thrombosis) ESRD (end stage renal disease) on dialysis Fracture of right lower extremity Inability to walk Diabetes mellitus, type 2 Obesity Chronic anemia COPD with asthma Bipolar disorder Anxiety and depression HLD (hyperlipidemia) HTN (hypertension) Former tobacco use Neuropathy Fibromyalgia Kidney disease, chronic, stage IV (GFR 15-29 ml/min) History of tobacco use History of diabetes mellitus, type II History of COPD History of bipolar disorder Benign essential hypertension History of asthma Home Medications ?Medication ?Instructions ?Recorded ?Last Taken ?Type cholecalciferol (vitamin D3) 25 5,000 unit PO DAILY SUPPLEMENT 10/03/13 01/18/23 History mcg (1,000 unit) capsule (Vitamin D3) omeprazole 20 mg capsule,delayed 20 mg PO DAILY 08/23/14 03/16/24 History release glipizide 5 mg tablet 10 mg PO DAILY DIABETES 04/28/15 01/18/23 History melatonin 5 mg capsule 10 mg PO QHS sleep 05/27/16 01/18/23 History amitriptyline 100 mg tablet 100 mg PO QHS DEPRESSION 09/10/22 01/18/23 History atorvastatin 40 mg tablet 40 mg PO QHS CHOLESTEROL 09/10/22 01/18/23 History calcitriol 0.25 mcg capsule 1.5 [facility] 03/17[facility]24 History dulaglutide 1.5 mg/0.5 mL 1.5 mg subcut CORNELL DIABETES 09/10/22 01/18/23 History subcutaneous pen injector (Trulicity) sevelamer carbonate 800 mg tablet 1,600 mg PO TID 02/04/23 Unknown History aspirin 81 mg capsule 81 mg PO DAILY 06/29/23 Unknown History hydroxyzine HCl 50 mg tablet 50 mg PO Q6H PRN itching 06/29/23 Unknown History sertraline 50 mg tablet 50 mg PO DAILY 06/29/23 Unknown History acetaminophen 325 mg capsule 650 mg PO Q6H PRN pain 07/02/23 Unknown History (Tylenol) ondansetron HCl 4 mg tablet 4 mg PO Q8H PRN PRN nausea and 07/02/23 Unknown History vomiting oxycodone-acetaminophen 5 mg-325 1 tab PO Q6H PRN PRN Pain 3 days 07/24/23 Unknown Rx mg tablet #12 TABLETS nifedipine 30 mg tablet,extended 30 mg PO QHS BP 03/17/24 Unknown History release 24 hr Allergy/AdvReac Type Severity Reaction Status Date / Time renetta carin Allergy Unknown UNKNOWN Verified 03/17/24 11:09 mold Allergy Unknown unknown Verified 03/17/24 11:09 lisinopril Allergy unknown Verified 03/17/24 11:09 Penicillins Allergy Anaphylaxis Verified 03/17/24 11:09 tetracycline (Tetracycline) Allergy Anaphylaxis Verified 03/17/24 11:09 codeine AdvReac Abd Verified 03/17/24 11:09 cramps/diarrhea diphenhydramine HCl (From AdvReac Upset Verified 03/17/24 11:09 Benadryl) Stomach hydrocodone bitartrate (From AdvReac Abd Verified 03/17/24 11:09 Vicodin) cramps/diarrhea NSAIDS (Non-Steroidal AdvReac Unknown Verified 03/17/24 11:09 Anti-Inflamma Family History Mother Heart disease Hypertension Diabetes Kidney disease Father Diabetes Surgical History H/O cataract extraction H/O vitrectomy History of appendectomy History of cholecystectomy H/O vascular surgery H/O gastric bypass S/P cholecystectomy S/P appendectomy Social History household members: none Smoking Status: Former smoker how long ago did patient quit smoking: Quit age 24. alcohol intake: never substance use type: does not use ROS Constitutional Constitutional: Denies anorexia, change in weight, chills, fatigue, fever(s), malaise, night sweats, weakness or other Eyes Eyes: Denies blurry vision, change in eye color, change in vision, discharge from eye(s), double vision, erythema, eye pain, loss of vision or other ENT HEENT: Denies abnormal hearing, dysphagia, ear pain, epistaxis, headache(s), hearing loss, nasal congestion, nasal discharge, post nasal drip, sinus pressure, sore throat or other Cardiovascular Cardiovascular: Denies chest pain, claudication, dyspnea on exertion, edema, lightheadedness, orthopnea, palpitations, paroxysmal nocturnal dyspnea, rapid heart rate, syncope or other Respiratory/Chest Respiratory/Chest: Denies cough, dyspnea, excessive phlegm production, hemoptysis, productive cough, shortness of breath at rest, shortness of breath with exertion, wheezing or other Gastrointestinal Gastrointestinal: Denies abdominal pain, coffee ground emesis, constipation, diarrhea, dyspepsia, hematemesis, hematochezia, loose stools, melena, nausea, vomiting or other Genitourinary Genitourinary: Denies burning urination, difficulty urinating, dysuria, hematuria, nocturia, urinary frequency, urinary hesitancy, urinary incontinence, urinary urgency or other Musculoskeletal Musculoskeletal: Reports arthralgias, back pain, joint pain, joint stiffness and myalgias; Denies joint swelling, neck pain or other Neurologic Neurologic: Reports numbness; Denies abnormal gait, abnormal speech, confusion, disequilibrium, dizziness, focal weakness, headache(s), paresthesias, seizure- like activity, seizures, syncope, tingling, tremor(s) or other Psychiatric Psychiatric: Reports depression; Denies anxiety, homicidal ideation, suicidal ideation or other Endocrine Endocrinology: Denies change in body appearance, cold intolerance, excessive sweating, heat intolerance, polydipsia, polyuria or other Hematologic/Lymphatic Hematologic/Lymphatic: Denies anemia, easy bleeding, easy bruising, lymphadenopathy or other Allergic/Immunologic Allergic/Immunologic: Denies rhinitis, hives, eczemia, asthma or other Vital Signs Vital Signs Vital Signs: 03/17/24 11:00 03/17/24 11:04 03/17/24 11:10 Temperature 98 F Temperature Source Temporal Pulse Rate 88 88 Respiratory Rate 18 18 Blood Pressure 130/70 H 130/70 H Blood Pressure Mean 90 90 Pulse Ox 94 94 94 Oxygen Delivery Method Nasal Cannula Nasal Cannula Nasal Cannula Oxygen Flow Rate (L/min) 4 4 03/17/24 11:10 03/17/24 11:17 03/17/24 12:03 Temperature Temperature Source Pulse Rate 95 96 95 Respiratory Rate 18 11 L Blood Pressure 155/76 H Blood Pressure Mean 102 Pulse Ox 93 99 Oxygen Delivery Method Nasal Cannula Nasal Cannula Oxygen Flow Rate (L/min) 4 4 03/17/24 12:12 03/17/24 13:00 03/17/24 14:00 Temperature Temperature Source Pulse Rate 93 97 91 Respiratory Rate 14 18 18 Blood Pressure 120/98 H 164/71 H Blood Pressure Mean 105 102 Pulse Ox 100 99 97 Oxygen Delivery Method Room Air Oxygen Flow Rate (L/min) 03/17/24 14:44 Temperature Temperature Source Pulse Rate 100 Respiratory Rate 16 Blood Pressure 181/94 H Blood Pressure Mean 123 Pulse Ox 97 Oxygen Delivery Method Oxygen Flow Rate (L/min) Weight Weight: 82 kg Body Mass Index (BMI) 27.4 Physical Exam Const alert, oriented x3, no apparent distress and well nourished Constitutional Narrative: Middle-aged, white female, sitting up in bed, appears older than stated age, watching TV and eating dinner, appears comfortable, nontoxic General Appearance: cooperative HEENT normocephalic, head/scalp atraumatic, hearing grossly normal bilaterally and moist oral mucous membranes Resp normal respiratory effort, no retractions, no use of accessory muscles and clear to auscultation bilaterally Auscultation: Negative for rales, rhonchi or wheezes Cardio regular rate, regular rhythm, S1 normal heart sound, S2 normal heart sound, no murmurs, no rub, no gallops and no clicks GI normal to inspection, nondistended, normoactive bowel sounds, soft to palpation and non-tender Extremity no clubbing, cyanosis or edema Extremity Narrative: Pedal and radial pulses are 2+, left upper extremity forearm with fistula noted having excellent bruit and thrill noted on exam Neuro oriented x3, moves all extremities and no focal motor deficits Neuro Narrative: Sensory normal throughout Speech: speech normal Psych affect normal Psych Narrative: Pleasant, interacts appropriately Results Lab / Micro Data 03/17/24 11:05 03/17/24 11:05 Labs: Laboratory Results - last 24 hr 03/17/24 11:05: WBC 6.0, RBC 3.53 L, Hgb 11.2 L, Hct 33.5 L, MCV 94.9, MCH 31.7, MCHC 33.4, RDW Std Deviation 41.7, RDW Coeff of Ben 12.1, Plt Count 186, MPV 9.9, Immature Gran % (Auto) 0.300, Neut % (Auto) 61.0, Lymph % (Auto) 28.7, [place] % (Auto) 7.1, Eos % (Auto) 2.2, Baso % (Auto) 0.7, Absolute Neuts (auto) 3.6, Absolute Lymphs (auto) 1.71, Nucleated RBC % 0, PT 12.3, INR 0.9, APTT 25.0, S odium 135 L, Potassium 3.6, Chloride 96 L, Carbon Dioxide 31.0, Anion Gap 8, BUN 11, Creatinine 2.05 H, Estim Creat Clear Calc 33.59, Est GFR (MDRD) Af Amer 32 L , Est GFR (MDRD) Non-Af 26 L, BUN/Creatinine Ratio 5.4 L, Glucose 278 H, Calcium 8.5, Troponin I High Sens 26 Imaging Radiology Impression Brain CT 03/17/24 11:04 IMPRESSION: 1. Chronic ischemic and involutional changes of the brain. 2. Concern for stroke/positive symptomatology should be further evaluated with CT brain perfusion/CTA or MRI of the brain for further assessment. N.B. : The above Results were Read Back by Ángel Vasquez MD to Neymar Toledo DO, and understanding confirmed on 03/17/2024 11:23:30 (ET). Electronically Signed: Ángel Vasquez MD at 11:24 EST , ADDENDUM: 03/17/24 1131 IMPRESSION: 1. Chronic ischemic and involutional changes of the brain. 2. Concern for stroke/positive symptomatology should be further evaluated with CT brain perfusion/CTA or MRI of the brain for further assessment. N.B. : The above Results were Read Back by Ángel Vasquez MD to Neymar Toledo DO, and understanding confirmed on 03/17/2024 11:23:30 (ET). Electronically Signed: Ángel Vasquez MD at 11:24 EST , Head/Neck CTA 03/17/24 11:32 IMPRESSION: No significant stenosis, thrombosis, aneurysm or dissection involving the arteries of the head and neck. Electronically Signed: Minh Schmidt MD at 13:53 EST , Chest X-Ray 03/17/24 11:40 IMPRESSION: Degenerative changes, as described above. No demonstrated acute cardiopulmonary process. Electronically Signed: Ángel Vasquez MD at 12:22 EST , Assessment & Plan Assessment/Plan (1) Hand numbness: (2) Facial droop: (3) Dysarthria: Charges/Coding Visit Charges Inpatient E&M: 72783 Init Hosp L2
--- NOTE | 2024-03-17 16:32 | ED.RN ---
PRN LABATELOL GIVEN FOR HYPERTENSION PER DR SAM
--- NOTE | 2024-03-17 17:46 | MRI_ITS ---
STUDY: MRI BRAIN WITHOUT CONTRAST REASON FOR EXAM: Female, 58 years old. TIA vs CVA TECHNIQUE: Standardized multiplanar fat and water weighted pulse sequences were obtained. COMPARISON: CT of the brain March 17, 2024. FINDINGS: Mild atrophy and minimal periventricular white matter disease . Normal bilateral basal ganglia. Normal thalami. There is no extra-axial fluid accumulation. Normal flow voids within the major intracranial circulation suggesting patency by spin echo criteria. Normal sella turcica, pituitary gland, infundibular stalk, optic chiasm and hypothalamus. Normal tectal plate and pineal gland. Normal midbrain, karie and medulla. Normal cerebellum. Normal basal cisterns. Normal bilateral temporal bones. Normal bilateral internal auditory canals. Minor mucosal thickening of the mastoid air cells which may be consistent with old inflammatory disease Postsurgical changes of the orbits. Normal visualized paranasal sinuses. Normal calvarium and skull base. Normal visualized soft tissue structures. Normal visualized upper cervical spine. MRI/Brain without Contrast IMPRESSION: Mild atrophy and minimal periventricular white matter disease without evidence for acute infarct. Electronically Signed: Sha Rahman MD at 19:18 EST ,
--- NOTE | 2024-03-17 17:46 | ECHOD_ITS ---
Reason For Study: TIA/CVA Procedure This was a 2D Doppler, Color Flow transthoracic echocardiogram. Exam performed portable in patient room. Left Ventricle Normal LV size. Mild concentric left ventricular hypertrophy. The left ventricular ejection fraction is 65 %. Stage 1 diastolic dysfunction. Right Ventricle Normal right ventricle. Atria The left atrium is mildly enlarged. Normal right atrium. Bubble contrast study is negative for PFO/ASD. Mitral Valve Mild mitral annular calcification. Trivial mitral valve insufficiency. Tricuspid Valve Trivial tricuspid valve insufficiency. Unable to estimate RV systolic pressure due to insufficient tricuspid regurgitant envelope. Aortic Valve Trisinus/trileaflet aortic valve. Pulmonic Valve The pulmonic valve is not well visualized. Great Vessels Normal sized aortic root. Pericardium/Pleural Trivial pericardial effusion. Medication Performed a rapid injection of agitated mix of 9 cc saline and 1cc air to assess for atrial septal defect. MMode/2D Measurements & Calculations LVIDd: 4.0 cm IVSd: 1.2 cm LVOT diam: 2.1 cm LVIDs: 3.5 cm LVPWd: 1.4 cm RVDd: 2.9 cm FS: 12.2 % LVOT area: 3.3 cm2 Ao root diam: 3.1 cm LAV(MOD-bp): 66.1 ml LVAd ap4: 28.8 cm2 LA dimension: 4.3 cm LAV(MOD-bp) Indexed: 33.1 ml/m2 LVLd ap4: 7.8 cm LAV(MOD-sp2): 62.3 ml EDV(MOD-sp4): 89.1 ml LAV(MOD-sp4): 68.8 ml EDV(sp4-el): 90.5 ml LVAs ap4: 17.2 cm2 LVLs ap4: 7.0 cm ESV(MOD-sp4): 35.4 ml ESV(sp4-el): 35.7 ml EF(MOD-sp4): 60.2 % EF(sp4-el): 60.6 % SV(MOD-sp4): 53.7 ml SV(sp4-el): 54.8 ml LA A4 area: 22.3 cm2 SI(MOD-sp4): 26.8 ml/m2 LA dimension(2D): 3.5 cm RA A4 area: 13.6 cm2 Time Measurements MV dec time: 0.09 sec Doppler Measurements & Calculations MV E max montez: 93.0 cm/sec Lat Peak E' Montez: 6.9 cm/sec Med Peak E' Montez: 5.5 cm/sec MV A max montez: 115.2 cm/sec E/E' lat: 13.5 E/E' med: 17.0 MV E/A: 0.81 MV V2 max: 122.2 cm/sec MV dec slope: 1052 cm/sec2 Ao V2 max: 164.6 cm/sec MV max P.0 mmHg Ao max P.9 mmHg MV V2 mean: 86.6 cm/sec Ao V2 mean: 115.4 cm/sec MV mean P.2 mmHg Ao mean P.0 mmHg MV V2 VTI: 28.7 cm Ao V2 VTI: 30.1 cm MVA(VTI): 3.0 cm2 AV (velocity ratio): 0.87 LUISA(I,D): 2.9 cm2 LUISA(V,D): 2.5 cm2 LV V1 max: 125.6 cm/sec SV(LVOT): 87.1 ml PA V2 max: 101.3 cm/sec LV V1 max P.3 mmHg PA V2 mean: 79.3 cm/sec LV V1 mean P.3 mmHg LV V1 mean: 84.0 cm/sec LV V1 VTI: 26.1 cm ECHO/Echo Complete Interpretation Summary Mild concentric left ventricular hypertrophy. The left ventricular ejection fraction is 65 %. Stage 1 diastolic dysfunction. The left atrium is mildly enlarged. Bubble contrast study is negative for PFO/ASD. Mild mitral annular calcification. Ordering Physician: Branden Banks Referring Physician: IGNACIO CHEATHAM Performed By: Jocy Jones RCS
[2024-03-17 18:37] LABS: Bedside Glucose 248 mg/dL (74-106)
[2024-03-17] MEDS: SEVELAMER CARBONATE 800 MG TABLET 1600 MG PO (21:05)
[2024-03-17] MEDS: Atorvastatin Calcium 40 MG Tablet PO (21:05)
[2024-03-17] MEDS: Amitriptyline 100 MG Tablet PO (21:05)
[2024-03-17] MEDS: Acetaminophen 325 MG Tablet 650 MG PO (21:10)
[2024-03-17 22:14] LABS: Bedside Glucose 497 mg/dL (74-106)
[2024-03-17] MEDS: Insulin Lispro 100 UNIT/ML INSULN.PEN SC (22:20)
[2024-03-17] MEDS: Insulin Glargine-YFGN 100 UNIT/ML Pen 10 UNIT SC (23:43)
[2024-03-18 03:00] VITALS: BP 148/67; PULSE 89; RESP 18; TEMP 35.8; O2SAT 96
[2024-03-18] MEDS: SEVELAMER CARBONATE 800 MG TABLET 1600 MG PO ×2 (06:08→13:42)
[2024-03-18] MEDS: Acetaminophen 325 MG Tablet 650 MG PO ×2 (06:08→12:16)
[2024-03-18 06:30] LABS: Bedside Glucose 138 mg/dL (74-106)
--- NOTE | 2024-03-18 07:22 | PN.HOSP_ITS ---
Reason for Visit Reason for Visit: Diagnoses Anesthesia of skin (03/17/24) Facial weakness (03/17/24) Dysarthria and anarthria (03/17/24) Objective Data Objective Data Vital Signs: Vital Signs Temp Pulse Resp BP Pulse Ox O2 Del Method O2 Flow Rate 96.5 F L 89 18 148/67 H 96 Room Air 4 03/18/24 03:00 03/18/24 03:00 03/18/24 03:00 03/18/24 03:00 03/18/24 03:00 03/18/24 03:00 03/17/24 11:17 Oxygen Flow Rate (L/min) 4 Oxygen Delivery Method Room Air Weight: 190 lb 0.615 oz Body Mass Index (BMI) 28.8 Intake & Output: Intake and Output for Last 24 Hours 03/16/24 03/17/24 03/18/24 23:59 23:59 23:59 Intake Total 360 / 360 Balance 360 / 360 Lab / Micro Data 03/17/24 11:05 03/17/24 11:05 Labs: Laboratory Results - last 24 hr 03/17/24 11:05: WBC 6.0, RBC 3.53 L, Hgb 11.2 L, Hct 33.5 L, MCV 94.9, MCH 31.7, MCHC 33.4, RDW Std Deviation 41.7, RDW Coeff of Ben 12.1, Plt Count 186, MPV 9.9, Immature Gran % (Auto) 0.300, Neut % (Auto) 61.0, Lymph % (Auto) 28.7, [place] % (Auto) 7.1, Eos % (Auto) 2.2, Baso % (Auto) 0.7, Absolute Neuts (auto) 3.6, Absolute Lymphs (auto) 1.71, Nucleated RBC % 0, PT 12.3, INR 0.9, APTT 25.0, S odium 135 L, Potassium 3.6, Chloride 96 L, Carbon Dioxide 31.0, Anion Gap 8, BUN 11, Creatinine 2.05 H, Estim Creat Clear Calc 33.59, Est GFR (MDRD) Af Amer 32 L , Est GFR (MDRD) Non-Af 26 L, BUN/Creatinine Ratio 5.4 L, Glucose 278 H, Calcium 8.5, Troponin I High Sens 26 03/17/24 17:59: POC Glucose 248 H 03/17/24 21:13: POC Glucose 497 H* 03/18/24 06:11: POC Glucose 138 H Radiography Diagnostic Testing: Radiology Impression Brain CT 03/17/24 11:04 IMPRESSION: 1. Chronic ischemic and involutional changes of the brain. 2. Concern for stroke/positive symptomatology should be further evaluated with CT brain perfusion/CTA or MRI of the brain for further assessment. N.B. : The above Results were Read Back by Ángel Vasquez MD to Neymar Toledo DO, and understanding confirmed on 03/17/2024 11:23:30 (ET). Electronically Signed: Ángel Vasquez MD at 11:24 EST , ADDENDUM: 03/17/24 1131 IMPRESSION: 1. Chronic ischemic and involutional changes of the brain. 2. Concern for stroke/positive symptomatology should be further evaluated with CT brain perfusion/CTA or MRI of the brain for further assessment. N.B. : The above Results were Read Back by Ángel Vasquez MD to Neymar Toledo DO, and understanding confirmed on 03/17/2024 11:23:30 (ET). Electronically Signed: Ángel Vasquez MD at 11:24 EST , Head/Neck CTA 03/17/24 11:32 IMPRESSION: No significant stenosis, thrombosis, aneurysm or dissection involving the arteries of the head and neck. Electronically Signed: Minh Schmidt MD at 13:53 EST , Chest X-Ray 03/17/24 11:40 IMPRESSION: Degenerative changes, as described above. No demonstrated acute cardiopulmonary process. Electronically Signed: Ángel Vasquez MD at 12:22 EST , Brain MRI 03/17/24 17:46 IMPRESSION: Mild atrophy and minimal periventricular white matter disease without evidence for acute infarct. Electronically Signed: Sha Rahman MD at 19:18 EST , Assessment & Plan Assessment/Plan (1) Hand numbness: (2) Dysarthria: (3) ESRD (end stage renal disease) on dialysis: PLAN: Plan 58-year-old female is being admitted for the concern of TIA with slurred speech, facial drop and dysarthria during the beginning of dialysis. Symptoms resolved on ED arrival. 58-year-old female Left hand numbness -Stroke protocol with NIH -Now resolved -Check MRI -Check echocardiogram -Check lipids next-check hemoglobin A1c -Aspirin 81 mg daily to continue from home medication list -Start Plavix 75 mg daily -Consult teleneurology Chronic anemia secondary to renal disease -Counts are stable -Monitor End-stage renal disease -HD dependent -Dialysis was today on 03/17/2024 so next dialysis will not be until 03/19/2024 -Continue home sevelamer-continue home calcitriol -Will hold off on nephrology consult right now and less her hospitalization requires more than observation DM-2 -Appears to be fairly uncontrolled with blood sugars on presentation -Hold home Trulicity -SSI for now until we get a better trend -Check hemoglobin A1c -Cardiac/carb controlled diet -It does seem like cough seems to be a factor for her -Social work/case management consultation for assistance Hyperlipidemia -Continue atorvastatin GERD -Continue on PPI Diabetic neuropathy -Patient has mild neuropathy does not require any medications for this Fibromyalgia -Continue home medication regimen Depression -Continue home amitriptyline -continue home as needed hydroxyzine -Continue home sertraline DVT prophylaxis -Patient is opted low risk for now if transition to full admission will need to add subcu heparin 5000 units 3 times daily
[2024-03-18 07:45] VITALS: O2SAT 96
[2024-03-18 09:00] VITALS: BP 178/80; PULSE 94; RESP 15; TEMP 36.7; O2SAT 99
[2024-03-18] MEDS: Sertraline 50 MG Tablet PO (09:08)
[2024-03-18] MEDS: Pantoprazole Sodium 20 MG Tablet PO (09:08)
[2024-03-18] MEDS: Aspirin 81 MG TAB.CHEW PO (09:08)
[2024-03-18] MEDS: Clopidogrel Bisulfate 75 MG Tablet PO (09:09)
[2024-03-18] MEDS: Cholecalciferol (Vit D3) 125 MCG CAPSULE (5,000 UNITS) PO (09:50)
[2024-03-18 10:13] LABS: Absolute Lymphocyte Count 1.51 X10^3/uL (0.83-4.51); Basophil# 0.05 X10^3/uL; Eosinophil# 0.12 X10^3/uL; Eosinophils% 2.3 % (0-5); Hematocrit 33.2 % (37-47); Hemoglobin 10.8 g/dL (12.0-15.0); Lymphocyte # 1.51 X10^3/ul (0.83-4.51); Lymphocyte % 29.4 % (19-41); Mean Corp Hgb Conc 32.5 g/dL (32-36); Mean Corpuscular Hgb 31.9 pg (27.0-32.0); Mean Corpuscular Volume 97.9 fL (81-99); Mean Platelet Vol. 9.8 fl (6.2-12.0); Monocyte# 0.44 X10^3/uL; Monocyte% 8.6 % (0-10); NRBC Flagged by Analyzer 0 % (0-5); Neutrophil # 2.99 X10^3/uL (2.7-7.7); Neutrophil % 58.3 % (47-70); Platelet Count 193 K/mm3 (150-450); RBC Distribution Width CV 12.4 % (11.6-14.6); Red Blood Count 3.39 M/mm3 (4.2-5.4); White Blood Count 5.1 K/mm3 (4.4-11.0)
--- NOTE | 2024-03-18 10:31 | DCINST_ITS ---
Discharge Instructions DC O2, CPAP, BIPAP needs Home O2 Discharge instructions: No Follow Up Care Test Results: Test results from this visit will be discussed in further detail at your follow- up appointment, if applicable. Discharge Plan Admission Admit Date/Time: 03/17/24 14:02 Attending Provider: Branden Banks Primary Care Provider: Aki Archibald Consulting Providers: Hipolito Shepard; Cristal Blanchard Discharge Orders/Prescriptions Prescriptions: Continued cholecalciferol (vitamin D3) [Vitamin D3] 1,000 UNIT capsule 5,000 unit PO DAILY omeprazole 20 MG capsule 20 mg PO DAILY glipizide 5 MG tablet 10 mg PO DAILY Patient Comments: per pt hasn't taken in approx 2 months r/t insurance issues & being unable to afford. melatonin 5 MG capsule 10 mg PO QHS atorvastatin 40 mg tablet 40 mg PO QHS calcitriol 0.25 mcg capsule 1.5 mcg PO .TuThursSat Patient Comments: 6 capsules per pt on days of dialysis Trulicity 1.5 mg/0.5 mL pen injector 1.5 mg SUBCUT CORNELL Patient Comments: PT STATED HASNT USED IN TWO MONTHS R/T INSURANCE ISSUES amitriptyline 100 mg tablet 100 mg PO QHS sevelamer carbonate 800 mg tablet 1,600 mg PO TID acetaminophen [Tylenol] 325 mg capsule 650 mg PO Q6H PRN (Reason: pain ) ondansetron HCl 4 mg tablet 4 mg PO Q8H PRN PRN (Reason: nausea and vomiting) oxycodone-acetaminophen 5-325 mg tablet 1 tab PO Q6H PRN PRN (Reason: Pain) 3 Days Qty: 12 0RF Patient Comments: per pt no longer taking aspirin 81 mg capsule 81 mg PO DAILY hydroxyzine HCl 50 mg tablet 50 mg PO Q6H PRN (Reason: itching) sertraline 50 mg tablet 50 mg PO DAILY nifedipine 30 mg tablet extended release 24hr 30 mg PO QHS Referrals / Follow Up: Alhaji Pierce MD [Non-Staff -Ordering Privileges] - Within 1 Month (Left hand/forearm numbness.) Aki Archibald MD [Primary Care Provider] - Within 2 Weeks Disposition Disposition (needs filled in before D/C Order can be placed): Home, Self Care
[2024-03-18 11:25] VITALS: BP 161/77
[2024-03-18 11:27] LABS: Anion Gap 10 (5-15); BUN 21 mg/dL (7-18); BUN/Creat Ratio 5.4 RATIO (10-20); Calcium,Total 9.2 mg/dL (8.5-10.1); Chloride 95 mmol/L (98-107); Cholesterol 191 mg/dL (200); Creatinine, Serum 3.89 mg/dL (0.55-1.02); EST Glomerular Filtration Rate 13 mL/min (>60); Est Glom Filt Rate - Afr Amer 15 mL/min (>60); Estimated Creatinine Clearance 18.12 ml/min; Glucose 288 mg/dL (74-106); High Density Lipoprotein 64 mg/dL; Potassium 4.3 mmol/L (3.5-5.1); Sodium Level 133 mmol/L (136-145); Triglycerides 110 mg/dL; Very Low Density Lipoprotein 22 mg/dL (5-40)
--- NOTE | 2024-03-18 11:34 | PCM.DC.SUM ---
Providers Date of Admission: 03/17/24 Date of Discharge: 03/18/24 Primary Care Physician: Dr. Aki Cheatham MD Reason For Visit: TIA Diagnosis Discharge Diagnosis (1) Hand numbness: Status: Acute Code(s): R20.0 - Anesthesia of skin (2) Dysarthria: Status: Acute Code(s): R47.1 - Dysarthria and anarthria (3) ESRD (end stage renal disease) on dialysis: Status: Acute Code(s): N18.6 - End stage renal disease; Z99.2 - Dependence on renal dialysis Plan 58-year-old female is being admitted for the concern of TIA with slurred speech, facial drop and dysarthria during the beginning of dialysis. Symptoms resolved on ED arrival. 1. Left hand numbness, seems intermittent and chronic: Patient is being admitted in PCU. The witness person said that she has some slurred speech. MRI brain negative for acute infarct. CTA head and neck showed no significant stenosis thrombosis aneurysm or dissection. Echo LA mildly enlarged. Bubble contrast ID negative for PFO/ASD. Patient is discharged home. Patient already on baby aspirin and high intensity atorvastatin therefore continued. Labs shows LDL 105, triglyceride 110. A1c 10.5%. 2. ESRD on hemodialysis. 3. Mild chronic anemia due to CKD. Hemoglobin 10.8/33%. Platelet count normal. 4. 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 A1c 10.5%. Follow with PCP for optimal glucose control. 5. Dyslipidemia: On atorvastatin. 6. Other comorbidities include GERD, fibromyalgia, anxiety and depression: Discharge medication conciliatio Discharge medication reconciliation done. Discharge follow-up instructions completed. Discharge process discussed with the patient and all questions were answered to patient's satisfaction. Follow with PCP in 1 to 2 weeks Total time spent, exact 35 minutes on discharge meds reconciliation, examination, coordination of care with nurses and ancillary staff, review of imaging and blood test and discussion with the patient on follow-up instructions. Medications at Discharge Home Medications cholecalciferol (vitamin D3) 25 mcg (1,000 unit) capsule (Vitamin D3) 5,000 unit PO DAILY SUPPLEMENT 10/03/13 omeprazole 20 mg capsule,delayed release 20 mg PO DAILY 08/23/14 glipizide 5 mg tablet 10 mg PO DAILY DIABETES 04/28/15 melatonin 5 mg capsule 10 mg PO QHS sleep 05/27/16 amitriptyline 100 mg tablet 100 mg PO QHS DEPRESSION 09/10/22 atorvastatin 40 mg tablet 40 mg PO QHS CHOLESTEROL 09/10/22 calcitriol 0.25 mcg capsule 1.5 mcg PO .TuThursSat dialysis day 09/10/22 dulaglutide 1.5 mg/0.5 mL subcutaneous pen injector (Trulicity) 1.5 mg subcut CORNELL DIABETES 09/10/22 sevelamer carbonate 800 mg tablet 1,600 mg PO TID 02/04/23 aspirin 81 mg capsule 81 mg PO DAILY 06/29/23 hydroxyzine HCl 50 mg tablet 50 mg PO Q6H PRN itching 06/29/23 sertraline 50 mg tablet 50 mg PO DAILY 06/29/23 acetaminophen 325 mg capsule (Tylenol) 650 mg PO Q6H PRN pain 07/02/23 ondansetron HCl 4 mg tablet 4 mg PO Q8H PRN PRN nausea and vomiting 07/02/23 oxycodone-acetaminophen 5 mg-325 mg tablet 1 tab PO Q6H PRN PRN Pain 3 days #12 TABLETS 07/24/23 nifedipine 30 mg tablet,extended release 24 hr 30 mg PO QHS BP 03/17/24 Physical Exam Narrative Seen and examined She stated she has intermittent left hand numbness that had passed. She is unclear about slurred speech/dysarthria but one of the weakness, noticed slurred speech Physical exam General: Alert, Oriented x3, Cooperative. Overweight, BMI 28.9 kg/m? HEENT: Atraumatic, PERRLA, EOMI, Normocephalic Oral: No Gingival or Mucosal Lesions/ Ulcerations Neck: Supple, No JVD, Negative Carotid Bruits Chest wall/Lungs: Air entry diminished in bilateral lung bases. No crepitation/rhonchi Cardiovascular: Regular rate, Regular Rhythm, Normal S1, Normal S2, No M/G/R Abdomen: Bowel Sounds Present, Soft, Non Tender, Non-Distended : No dysuria. No renal angle tenderness. No suprapubic tenderness. Extremities: Left forearm AV fistula. No edema, Capillary Refill Less than 3 Seconds Skin: No rashes, No breakdown Musculoskeletal: No Tenderness to Palpation of Joints or Extremities. ROM fully intact Neurological: Cranial nerves II-XII grossly intact, DTR 2+/4. No acute focal neurological deficit. Psych/Mental Status: Normal Affect, Appropriate. Weight / BMI Weight Weight: 190 lb 0.615 oz Body Mass Index (BMI) 28.8 ABG / Lab / Microbiology Data 03/18/24 10:03 03/18/24 10:03 Laboratory: Laboratory Results - last 24 hr 03/17/24 17:59: POC Glucose 248 H 03/17/24 21:13: POC Glucose 497 H* 03/18/24 06:11: POC Glucose 138 H 03/18/24 10:03: WBC 5.1, RBC 3.39 L, Hgb 10.8 L, Hct 33.2 L, MCV 97.9, MCH 31.9, MCHC 32.5, RDW Std Deviation 44.0 H, RDW Coeff of Ben 12.4, Plt Count 193, MPV 9.8, Immature Gran % (Auto) 0.400, Neut % (Auto) 58.3, Lymph % (Auto) 29.4, [place] % (Auto) 8.6, Eos % (Auto) 2.3, Baso % (Auto) 1.0, Absolute Neuts (auto) 3.0, Absolute Lymphs (auto) 1.51, Nucleated RBC % 0, Sodium 133 L, Potassium 4.3, Chloride 95 L, Carbon Dioxide 28.0, Anion Gap 10, BUN 21 H, Creatinine 3.89 H, Estim Creat Clear Calc 18.12, Est GFR (MDRD) Af Amer 15 L, Est GFR (MDRD) Non-Af 13 L, BUN/Creatinine Ratio 5.4 L, Glucose 288 H, Hemoglobin A1c 10.5 H, Calcium 9.2, Triglycerides 110, Cholesterol 191, LDL Cholesterol 105, VLDL Cholesterol 22, HDL Cholesterol 64 Radiography Diagnostic Testing: Radiology Impression Head/Neck CTA 03/17/24 11:32 IMPRESSION: No significant stenosis, thrombosis, aneurysm or dissection involving the arteries of the head and neck. Electronically Signed: Minh Schmidt MD at 13:53 EST , Brain MRI 03/17/24 17:46 IMPRESSION: Mild atrophy and minimal periventricular white matter disease without evidence for acute infarct. Electronically Signed: Sha Rahman MD at 19:18 EST Reading Location ID and State: [facility] / [place] Tel , Service support , Echocardiogram 03/17/24 17:46 Interpretation Summary Mild concentric left ventricular hypertrophy. The left ventricular ejection fraction is 65 %. Stage 1 diastolic dysfunction. The left atrium is mildly enlarged. Bubble contrast study is negative for PFO/ASD. Mild mitral annular calcification. Ordering Physician: Branden Banks Referring Physician: AKI CHEATHAM Performed By: Jocy Jones RCS D/C Instructions DC O2, CPAP, BIPAP Needs Home O2 Discharge instructions: No Meaningful Use Info Meaningful Use Meaningful Use Diagnoses (Choose all that apply): None applicable Ischemic Stroke Statin Dosing Therapy Reference: STATIN DOSE THERAPY REFERENCE: * Patients > 75 years receive moderate or high dose statin therapy. * Patients 75 years or YOUNGER should receive HIGH intensity statin dose unless contraindicated. You will be required to document reason for non-treatment if statin daily dose does not meet guidelines. HIGH DOSE STATIN THERAPY DAILY Atorvastatin > than or = to 40 mg Rosuvastatin > than or = to 20 mg Amlodipine + Atorvastatin > than or = to 2.5/40 mg Ezetimibe + Simvastatin 10/80 mg Simvastatin 80mg Discharge Plan Admission Admit Date/Time: 03/17/24 14:02 Attending Provider: Branden Banks Primary Care Provider: Aki Cheatham Consulting Providers: Hipolito Shepard Kathryn Discharge Orders/Prescriptions Prescriptions: Continued cholecalciferol (vitamin D3) [Vitamin D3] 1,000 UNIT capsule 5,000 unit PO DAILY omeprazole 20 MG capsule 20 mg PO DAILY glipizide 5 MG tablet 10 mg PO DAILY Patient Comments: per pt hasn't taken in approx 2 months r/t insurance issues & being unable to afford. melatonin 5 MG capsule 10 mg PO QHS atorvastatin 40 mg tablet 40 mg PO QHS calcitriol 0.25 mcg capsule 1.5 mcg PO .TuThursSat Patient Comments: 6 capsules per pt on days of dialysis Trulicity 1.5 mg/0.5 mL pen injector 1.5 mg SUBCUT CORNELL Patient Comments: PT STATED HASNT USED IN TWO MONTHS R/T INSURANCE ISSUES amitriptyline 100 mg tablet 100 mg PO QHS sevelamer carbonate 800 mg tablet 1,600 mg PO TID acetaminophen [Tylenol] 325 mg capsule 650 mg PO Q6H PRN (Reason: pain ) ondansetron HCl 4 mg tablet 4 mg PO Q8H PRN PRN (Reason: nausea and vomiting) oxycodone-acetaminophen 5-325 mg tablet 1 tab PO Q6H PRN PRN (Reason: Pain) 3 Days Qty: 12 0RF Patient Comments: per pt no longer taking aspirin 81 mg capsule 81 mg PO DAILY hydroxyzine HCl 50 mg tablet 50 mg PO Q6H PRN (Reason: itching) sertraline 50 mg tablet 50 mg PO DAILY nifedipine 30 mg tablet extended release 24hr 30 mg PO QHS Referrals / Follow Up: Alhaji Pierce MD [Non-Staff -Ordering Privileges] - Within 1 Month (Left hand/forearm numbness.) Aki Cheatham MD [Primary Care Provider] - Within 2 Weeks Disposition Disposition (needs filled in before D/C Order can be placed): Home, Self Care Charges/Coding Visit Charges Inpatient E&M: 96193 Disch Hosp >30min
[2024-03-18] MEDS: Insulin Lispro 100 UNIT/ML INSULN.PEN SC (12:17)
--- NOTE | 2024-03-18 12:57 | CHAPLAIN ---
Type of Pastoral Visit _x__ Initial Visit ___ Follow-up Visit ___ On-call Visit ___ General Patient Visit ___ Spiritual Assessment ___ Family Conference ___ Bereavement ___ Rapid Response ___ Code Blue ___ Other (describe below) Pastoral Care Referral From _x__ Patient ___ Family ___ Nurse ___ Physician ___ [employer] ___ Certified Personal Chef ___ Other (describe below) Sacrament/Intervention ___ Active listening ___ Anointing ___ Jainism ___ Bereavement ___ Communion ___ Isi exploration ___ ___ Life review _x__ Prayer ___ Reconciliation ___ Sacrament of Sick _x__ Supportive presence ___ Wedding ___ Other (describe below) Pastoral Comments patient is awake but is trying to sleep; pt says that it is okay to offer support but that she would prefer to rest; pt does welcome a prayer for her health at this time
[2024-03-18 13:08] LABS: Hemoglobin A1c 10.5 % (3.8-5.6)
--- NOTE | 2024-03-18 13:33 | CM.UR ---
Addendum entered by Sylvie Beatty 03/18/24 13:38: Pt states her sister will be taking her home, but she won't be available until around 3 PM. Original Note: GRACE NAIR NOTE: GRACE NAIR spoke w/Simona @ [facility]. She is aware pt was admitted to [facility] and that plan is to discharge home today. Pt's chair time is TTS, 0700. Discharge order is in. GRACE NAIR to room. Pt denies having any discharge needs/concerns. She plans to go to OP HD tomorrow AM. She states they are currently in the process for her to be able to do home HD in the future. She denies need for PT/OT or ST evals. Jovani HERNANDEZN GRACE NAIR
--- NOTE | 2024-03-18 14:03 | CASEMGMT ---
Social Work SW met with pt and completed PHQ9 due to TIA. Score of 6. Pt denies needs at this time stating biggest issue is not sleeping and feeling tired which pt states she has dealt with for years. No additional SW needs at this time. ALEE Garcia
[2024-03-18 14:50] VITALS: BP 169/74; PULSE 94; RESP 15; TEMP 36.7; O2SAT 99
--- NOTE | 2024-03-18 16:13 | NURSING ---
Reviewed and agreed on charting with Jenny Cornejo RN
[2024-03-19 17:16] LABS: Bedside Glucose 282 mg/dL (74-106)
== END 2024-03-18 15:41 | disposition home or self-care (01) ==
LOC: ED 14:09 → PCU 16:47
PROVIDERS: Internal Medicine; Admitting Provider Family Medicine; Emergency Provider Emergency Medicine; PCP Family Medicine; Visit Provider Internal Medicine
DX: R20.0 Anesthesia of skin (principal); N18.6 End stage renal disease; I12.0 Hypertensive chronic kidney disease with stage 5 chronic kidney disease or end stage renal disease; F31.9 Bipolar disorder, unspecified; J44.89 Other specified chronic obstructive pulmonary disease; E11.22 Type 2 diabetes mellitus with diabetic chronic kidney disease; E11.40 Type 2 diabetes mellitus with diabetic neuropathy, unspecified; K21.9 Gastro-esophageal reflux disease without esophagitis; Z79.84 Long term (current) use of oral hypoglycemic drugs; E78.5 Hyperlipidemia, unspecified; R47.81 Slurred speech; Z79.85 Long-term (current) use of injectable non-insulin antidiabetic drugs; Z99.2 Dependence on renal dialysis; M79.7 Fibromyalgia; D63.1 Anemia in chronic kidney disease; Z87.891 Personal history of nicotine dependence; R47.1 Dysarthria and anarthria; E87.1 Hypo-osmolality and hyponatremia; Z79.899 Other long term (current) drug therapy; Z98.84 Bariatric surgery status; R29.810 Facial weakness; F41.9 Anxiety disorder, unspecified
CPT/HCPCS: 36415; 70450; 70496; 70498; 70551; 71045; 80048; 80061; 82962; 83036; 84484; 85025; 85610; 85730; 93005; 93306; 94762; 96374; 97802; 99221; 99285; Q9967; A4216; G0378

== ENCOUNTER 2024-04-02 12:05 | Emergency (ER) | payer MEDICARE, MEDICAID, SELFPAY ==
[2024-04-02 12:05] VITALS: BP 170/71; PULSE 93; RESP 12; TEMP 36.6; O2SAT 92; BMI 30.4
--- NOTE | 2024-04-02 12:17 | CT_ITS ---
EXAM: BRAIN/HEAD WITHOUT CONTRAST CLINICAL HISTORY: Headache COMPARISON: None. TECHNIQUE: Noncontrast images of the head with multiplanar reconstructions. Dose reduction techniques were used including intermediate exposure control (AEC),iterative reconstruction technique, and/or mA and/or KV dose adjustments based on patient's size. FINDINGS: CT HEAD FINDINGS: No acute intracranial hemorrhage, mass, mass effect, midline shift or pathologic extra-axial fluid collection. No hydrocephalus. Age- appropriate cerebral volume and white matter. Visualized paranasal sinuses and mastoid air cells are clear. The calvarium is grossly intact. CT/Brain/Head without Contrast IMPRESSION: No CT evidence of acute intracranial pathology. [facility]
--- NOTE | 2024-04-02 12:17 | EKG12_ITS ---
Test Reason : NEURO Blood Pressure : */* mmHG Vent. Rate : 93 BPM Atrial Rate : 93 BPM P-R Int : 138 ms QRS Dur : 88 ms QT Int : 402 ms P-R-T Axes : 56 19 68 degrees QTcB Int : 499 ms Normal sinus rhythm Nonspecific T wave abnormality Prolonged QT Abnormal ECG Confirmed by RENATA BERGMAN, VINOD ([id number]), legal editor LINDA PICKETT ([id number]) on 04/04/2024 8:18:00 AM Referred By: Dave Sanz Confirmed By: VINOD YANEZ MD
--- NOTE | 2024-04-02 12:19 | EDS_ITS ---
<Statement entered by Dave Sanz DO - 04/02/24 15:17> Patient was seen and examined with nurse hakan Scott All components of the history and physical confirmed and agreed. History of present illness and physical exam: Patient is a 58-year-old female past medical history of end-stage renal disease on dialysis Thursday, , Thursday, TIA, COPD, type 2 diabetes, GERD, CASSIE, bipolar disorder, fibromyalgia she describes, hypertension who presented to the emergency department with a chief complaint of numbness and tingling in her arms bilaterally as well as noted facial droop. She states that this all occurred at the end of her dialysis the nurse noted that his symptoms. They noted that her blood pressure was 80/50 when this occurred. She did improve at the dialysis center and was sent home states that she went to [facility] was doing some shopping and she felt like she had another attack of bilateral arm numbness and tingling therefore she came here for the valuation management. States that she feels back to baseline at this point time and has no complaints. Patient was just recently discharged from the hospital on March 18, 2023 for a very similar presentation. Review of systems: Agree with above Physical exam: Agree with above will add patient completed finger-nose and [id number] test bilaterally without any difficulty NIH of 0 GCS 15 MDM Patient is a 58-year-old female who presents to the emergency department with a chief complaint of hypotension with associated bilateral arm tingling, facial droop at the end of her dialysis session which just also recently occurred and she had a recent hospital admission. Patient currently is on aspirin and statin states that she has been compliant with her medications not missing doses. On the differential diagnose includes but not limited to hypertension, TIA, electrolyte abnormality, hypoglycemia. Once workup is obtained reviewed she will be reevaluated. Patient's records from recent hospitalization on March 17, 2024 were reviewed and at that point time she had MRI of the brain which was negative for any acute infarct. CTA of the head and neck showed no significant stenosis or thrombosis aneurysm or dissection. Echo showed the LA was mildly enlarged bubble study was negative for PFO/ASD. Patient was ultimately discharged home. They continued her current medication regimen. Today patient CBC reviewed and was largely unremarkable white blood cell count normal at 4.4, hemoglobin 11.4, platelet count was noted be normal at 182. Patient sodium was 134, potassium normal at 3.3, creatinine was 2.57 she does have underlying chronic kidney disease is on dialysis, AST and ALT were 22 and [address] head and brain showed no acute intracranial p athology. Patient CTA head and neck showed no large vessel occlusion. Calcifications in the bilateral internal carotid arteries were noted which can be followed up on in the outpatient setting per radiology. Patient chest x-ray reviewed by myself by radiology showed no acute cardiopulmonary processes. Patient's EKG reviewed and independently interpreted by myself showed sinus rhythm with a rate of 93 bpm. On reevaluation of the patient she is resting comfortably in bed she had no further episodes of hypotension here in the emergency department. Patient did test negative for COVID flu and RSV. Tyler did discuss case with hospitalist given her recent admission and believes that she is stable for discharge and has no further recommendations and was likely secondary related to her hypotension during her dialysis session. Patient was advised to follow-up with her cooker meal as well as her primary care physician and return with worsening symptoms or concerns. She is agreeable this plan all question concerns answered she was discharged home in stable condition. Final impression: Bilateral arm numbness and tingling Chronic kidney disease on dialysis Hypotension resolved Disposition: Patient will be discharged home in stable condition Supervising attending attestation: Dave MAYORGA History of Present Illness Chief Complaint: Neuro S/Sx Narrative Narrative: Patient is a 58-year-old female with history of end-stage renal disease on dialysis Thursday, , Thursday, history of TIAs, presenting to the emergency department for neurological complaints. Patient states towards the end of her dialysis treatment today, both of her arms felt numbness and tingling, she then had some facial droop, she also states that her blood pressure dropped to 80/50. This happened approximately 10:30 AM. Patient did improve, was discharged from the dialysis center, and while she was at [facility] doing some shopping, roughly 11 30-11 40 5 AM, patient had another attack of bilateral arm numbness and tingling, as well as some facial droop. Patient states that this also improved. Patient recently was discharged from the hospital on March 18, 2023. Here for reevaluation. Patient is asymptomatic on my evaluation. [facility] Medical History Fracture of fibula, right, closed Anemia Hyperkalemia Osteoarthritis of right knee Pathological fracture, right tibia, initial encounter for fracture Diabetes Dialysis patient Kidney disease GERD (gastroesophageal reflux disease) Sleep apnea Former smoker Asthma DVT (deep venous thrombosis) ESRD (end stage renal disease) on dialysis Fracture of right lower extremity Inability to walk Diabetes mellitus, type 2 Obesity Chronic anemia COPD with asthma Bipolar disorder Anxiety and depression HLD (hyperlipidemia) HTN (hypertension) Former tobacco use Neuropathy Fibromyalgia Kidney disease, chronic, stage IV (GFR 15-29 ml/min) History of tobacco use History of diabetes mellitus, type II History of COPD History of bipolar disorder Benign essential hypertension History of asthma Home Medications ?Medication ?Instructions ?Recorded ?Last Taken ?Type cholecalciferol (vitamin D3) 25 5,000 unit PO DAILY CORNELL PPLEMENT 10/03/13 01/18/23 History mcg (1,000 unit) capsule (Vitamin D3) omeprazole 20 mg capsule,delayed 20 mg PO DAILY 03/16/24 History release glipizide 5 mg tablet 10 mg PO DAILY DIABETES 04/0301/18/23 History melatonin 5 mg capsule 10 mg PO QHS sleep 05/27/16 01/18/23 History amitriptyline 100 mg tablet 100 mg PO QHS DEPRESSION 0 09/10/22 01/18/23 History atorvastatin 40 mg tablet 40 mg PO QHS CHOLESTEROL 02/2101/18/23 History calcitriol 0.25 mcg capsule 1.5 mcg PO .TuThursSat ismael lysis day 09/10/22 03/17/24 History dulaglutide 1.5 mg/0.5 mL 1.5 mg subcut CORNELL DIABETES 01/18/23 History subcutaneous pen injector (Trulicity) sevelamer carbonate 800 mg tablet 1,600 mg PO TID 08/22 Unknown History aspirin 81 mg capsule 81 mg PO DAILY 06/29/23 Unkn own History hydroxyzine HCl 50 mg tablet 50 mg PO Q6H PRN itching 06/29/23 Unknown History sertraline 50 mg tablet 50 mg PO DAILY 06/29/23 Unkn own History acetaminophen 325 mg capsule 650 mg PO Q6H PRN pain Unknown History (Tylenol) ondansetron HCl 4 mg tablet 4 mg PO Q8H PRN PRN nausea and 07/02/23 Unknown History vomiting oxycodone-acetaminophen 5 mg-325 1 tab PO Q6H PRN PRN Pain 3 days 07/24/23 Unknown Rx mg tablet #12 TABLETS nifedipine 30 mg tablet,extended 30 mg PO QHS BP 03/17 Unknown History release 24 hr Allergy/AdvReac Type Severity Reaction Status Date / Time balsam carin Allergy Unknown UNKNOWN Verified 04/02/24 12:08 mold Allergy Unknown unknown Verified 04/02/24 12:08 lisinopril Allergy unknown Verified 04/02/24 12:08 Penicillins Allergy Anaphylaxis Verified 04/02/24 12:08 tetracycline (Tetracycline) Allergy Anaphylaxis Verified 04/02/24 12:08 codeine AdvReac Abd Verified 04/02/24 12:08 cramps/diarrhea diphenhydramine HCl (From AdvReac Upset Verified 04/02/24 12:08 Benadryl) Stomach hydrocodone bitartrate (From AdvReac Abd Verified 04/02/24 12:08 Vicodin) cramps/diarrhea NSAIDS (Non-Steroidal AdvReac Unknown Verified 04/02/24 12:08 Anti-Inflamma Family History Mother Heart disease Hypertension Diabetes Kidney disease Father Diabetes Surgical History H/O cataract extraction H/O vitrectomy History of appendectomy History of cholecystectomy H/O vascular surgery H/O gastric bypass S/P cholecystectomy S/P appendectomy Social History household members: none Smoking Status: Former smoker how long ago did patient quit smoking: Quit age 24. alcohol intake: never substance use type: does not use ROS ROS ED ROS Narrative Constitutional: Negative for fever, chills, weight loss, weakness Eyes: Negative for vision loss, vision change, double vision ENT: Negative for any sore throat, ear pain, congestion Cardiovascular: Negative for any chest pain, tightness, palpitations Respiratory: Negative for any cough, sputum production, hemoptysis, dyspnea, dyspnea on exertion, orthopnea Gastrointestinal: Negative for any abdominal pain, nausea, vomiting, diarrhea, constipation, blood in stool, blood in vomit : Negative for any urinary frequency, dysuria, retention, blood in urine Muscle skeletal: Negative for any neck pain, back pain Neurological: Negative for any headache, syncope, dizziness. Positive for bilateral arm numbness and tingling. No weakness. Positive for right sided facial droop Skin: Negative for any rashes, itching, abrasions, lacerations Psychiatric: Negative for any depression, anxiety, stress, suicidal ideation, homicidal ideation Hematologic: Negative for any excessive bruising, easy bleeding EXAM Physical Exam Narrative Exam Narrative: Vital signs reviewed. Patient appears to be in no obvious distress. Patient alert and orient x 4. Patient denies any symptoms at this time. HEET: Head normocephalic atraumatic, TMs clear bilaterally. Posterior pharynx is clear, moist mucous membranes. Nares clear bilaterally. Neck: Supple with no lymphadenopathy or tenderness. No signs of meningismus. Cardiac: Regular rate and rhythm no murmurs gallops or rubs, equal peripheral pulses bilaterally. Respiratory: Lungs clear to auscultation bilaterally. No chest tenderness. Abdomen: Soft, nontender, nondistended. No abdominal bruit or pulsatile masses. No hepatosplenomegaly Extremities: No peripheral edema, no signs of gross trauma or deformity. Active full range of motion of all extremities. Left forearm does show positive bruit, thrill to the dialysis fistula. Neuro: Cranial nerves II through XII intact, no focal neurological deficits. NIH stroke scale 0. Skin: Clean dry and intact with no rash, purpura, petechiae, vesicles or pustules. Backs/flank: No CVA tenderness, no midline spinal tenderness, no deformity. Psych: Normal mood and affect. No SI, HI or acute psychosis. Const Vital Signs: 04/02/24 12:05 04/02/24 14:05 Temperature 97.9 F 97.8 F Temperature Source Temporal Oral Pulse Rate 93 100 Respiratory Rate 12 18 Blood Pressure 170/71 H 178/78 H Blood Pressure Mean 104 111 Pulse Ox 92 94 Oxygen Delivery Method Room Air Room Air Positive well nourished and well developed General Appearance ED: well developed MDM MDM Lab Data Labs: Laboratory Results - last 24 hr 04/02/24 12:37 WBC 4.4 RBC 3.67 L Hgb 11.4 L Hct 34.3 L MCV 93.5 MCH 31.1 MCHC 33.2 RDW Std Deviation 42.8 RDW Coeff of Ben 12.5 Plt Count 182 MPV 9.7 Immature Gran % (Auto) 0.200 Neut % (Auto) 63.8 Lymph % (Auto) 26.5 [place] % (Auto) 6.8 Eos % (Auto) 1.8 Baso % (Auto) 0.9 Absolute Neuts (auto) 2.8 Absolute Lymphs (auto) 1.16 Nucleated RBC % 0 Sodium 134 L Potassium 3.3 L Chloride 96 L Carbon Dioxide 29.0 Anion Gap 10 BUN 10 Creatinine 2.57 H Estim Creat Clear Calc 28.12 Est GFR (MDRD) Af Amer 25 L Est GFR (MDRD) Non-Af 20 L BUN/Creatinine Ratio 3.9 L Glucose 248 H Calcium 8.5 Total Bilirubin 0.50 AST 22 ALT 19 Alkaline Phosphatase 94 Total Protein 6.9 Albumin 3.2 Globulin 3.7 Albumin/Globulin Ratio 0.9 Radiography Diagnostic Testing: Clinical Impression(s) from Imaging Studies Brain CT 04/02/24 12:17 IMPRESSION: No CT evidence of acute intracranial pathology. Reading Location: [facility] Head/Neck CTA 04/02/24 12:35 IMPRESSION: No large vessel occlusions. Calcifications in the bilateral internal carotid arteries for which outpatient carotid ultrasound is advised for optimal characterization One or more dose reduction techniques were used (e.g., Automated exposure control, adjustment of the mA and/or kV according to patient size, use of iterative reconstruction technique). Reading Location: [facility] Chest X-Ray 04/02/24 13:03 IMPRESSION: UNREMARKABLE SINGLE VIEW OF THE CHEST AND ABDOMEN. Reading Location: [facility] EKG Normal sinus rhythm: Attestation: I personally reviewed and interpreted this EKG as follows:
--- NOTE | 2024-04-02 12:19 | EX.ED.DYSGE1 ---
HPI History of Present Illness Chief Complaint: Neuro S/Sx Narrative Narrative: Patient is a 58-year-old female with history of end-stage renal disease on dialysis Thursday, , Thursday, history of TIAs, presenting to the emergency department for neurological complaints. Patient states towards the end of her dialysis treatment today, both of her arms felt numbness and tingling, she then had some facial droop, she also states that her blood pressure dropped to 80/50. This happened approximately 10:30 AM. Patient did improve, was discharged from the dialysis center, and while she was at [facility] doing some shopping, roughly 11 30-11 40 5 AM, patient had another attack of bilateral arm numbness and tingling, as well as some facial droop. Patient states that this also improved. Patient recently was discharged from the hospital on March 18, 2023. Here for reevaluation. Patient is asymptomatic on my evaluation. [facility] Medical History Fracture of fibula, right, closed Anemia Hyperkalemia Osteoarthritis of right knee Pathological fracture, right tibia, initial encounter for fracture Diabetes Dialysis patient Kidney disease GERD (gastroesophageal reflux disease) Sleep apnea Former smoker Asthma DVT (deep venous thrombosis) ESRD (end stage renal disease) on dialysis Fracture of right lower extremity Inability to walk Diabetes mellitus, type 2 Obesity Chronic anemia COPD with asthma Bipolar disorder Anxiety and depression HLD (hyperlipidemia) HTN (hypertension) Former tobacco use Neuropathy Fibromyalgia Kidney disease, chronic, stage IV (GFR 15-29 ml/min) History of tobacco use History of diabetes mellitus, type II History of COPD History of bipolar disorder Benign essential hypertension History of asthma Home Medications ?Medication ?Instructions ?Recorded ?Last Taken ?Type cholecalciferol (vitamin D3) 25 5,000 unit PO DAILY SUPPLEMENT 10/03/13 01/18/23 History mcg (1,000 unit) capsule (Vitamin D3) omeprazole 20 mg capsule,delayed 20 mg PO DAILY 08/23/14 03/16/24 History release glipizide 5 mg tablet 10 mg PO DAILY DIABETES 04/28/15 01/18/23 History melatonin 5 mg capsule 10 mg PO QHS sleep 05/27/16 01/18/23 History amitriptyline 100 mg tablet 100 mg PO QHS DEPRESSION 09/10/22 01/18/23 History atorvastatin 40 mg tablet 40 mg PO QHS CHOLESTEROL 09/10/22 01/18/23 History calcitriol 0.25 mcg capsule 1.5 mcg PO .TuThursSat dialysis day 09/10/22 03/17/24 History dulaglutide 1.5 mg/0.5 mL 1.5 mg subcut CORNELL DIABETES 09/10/22 01/18/23 History subcutaneous pen injector (Trulicity) sevelamer carbonate 800 mg tablet 1,600 mg PO TID 02/04/23 Unknown History aspirin 81 mg capsule 81 mg PO DAILY 06/29/23 Unknown History hydroxyzine HCl 50 mg tablet 50 mg PO Q6H PRN itching 06/29/23 Unknown History sertraline 50 mg tablet 50 mg PO DAILY 06/29/23 Unknown History acetaminophen 325 mg capsule 650 mg PO Q6H PRN pain 07/02/23 Unknown History (Tylenol) ondansetron HCl 4 mg tablet 4 mg PO Q8H PRN PRN nausea and 07/02/23 Unknown History vomiting oxycodone-acetaminophen 5 mg-325 1 tab PO Q6H PRN PRN Pain 3 days 07/24/23 Unknown Rx mg tablet #12 TABLETS nifedipine 30 mg tablet,extended 30 mg PO QHS BP 03/17/24 Unknown History release 24 hr Allergy/AdvReac Type Severity Reaction Status Date / Time [place] [facility] Allergy Unknown UNKNOWN Verified 04/02/24 12:08 mold Allergy Unknown unknown Verified 04/02/24 12:08 lisinopril Allergy unknown Verified 04/02/24 12:08 Penicillins Allergy Anaphylaxis Verified 04/02/24 12:08 tetracycline (Tetracycline) Allergy Anaphylaxis Verified 04/02/24 12:08 codeine AdvReac Abd Verified 04/02/24 12:08 cramps/diarrhea diphenhydramine HCl (From AdvReac Upset Verified 04/02/24 12:08 Benadryl) Stomach hydrocodone bitartrate (From AdvReac Abd Verified 04/02/24 12:08 Vicodin) cramps/diarrhea NSAIDS (Non-Steroidal AdvReac Unknown Verified 04/02/24 12:08 Anti-Inflamma Family History Mother Heart disease Hypertension Diabetes Kidney disease Father Diabetes Surgical History H/O cataract extraction H/O vitrectomy History of appendectomy History of cholecystectomy H/O vascular surgery H/O gastric bypass S/P cholecystectomy S/P appendectomy Social History household members: none Smoking Status: Former smoker how long ago did patient quit smoking: Quit age 24. alcohol intake: never substance use type: does not use ROS ROS ED ROS Narrative Constitutional: Negative for fever, chills, weight loss, weakness Eyes: Negative for vision loss, vision change, double vision ENT: Negative for any sore throat, ear pain, congestion Cardiovascular: Negative for any chest pain, tightness, palpitations Respiratory: Negative for any cough, sputum production, hemoptysis, dyspnea, dyspnea on exertion, orthopnea Gastrointestinal: Negative for any abdominal pain, nausea, vomiting, diarrhea, constipation, blood in stool, blood in vomit : Negative for any urinary frequency, dysuria, retention, blood in urine Muscle skeletal: Negative for any neck pain, back pain Neurological: Negative for any headache, syncope, dizziness. Positive for bilateral arm numbness and tingling. No weakness. Positive for right sided facial droop Skin: Negative for any rashes, itching, abrasions, lacerations Psychiatric: Negative for any depression, anxiety, stress, suicidal ideation, homicidal ideation Hematologic: Negative for any excessive bruising, easy bleeding EXAM Physical Exam Narrative Exam Narrative: Vital signs reviewed. Patient appears to be in no obvious distress. Patient alert and orient x 4. Patient denies any symptoms at this time. HEET: Head normocephalic atraumatic, TMs clear bilaterally. Posterior pharynx is clear, moist mucous membranes. Nares clear bilaterally. Neck: Supple with no lymphadenopathy or tenderness. No signs of meningismus. Cardiac: Regular rate and rhythm no murmurs gallops or rubs, equal peripheral pulses bilaterally. Respiratory: Lungs clear to auscultation bilaterally. No chest tenderness. Abdomen: Soft, nontender, nondistended. No abdominal bruit or pulsatile masses. No hepatosplenomegaly Extremities: No peripheral edema, no signs of gross trauma or deformity. Active full range of motion of all extremities. Left forearm does show positive bruit, thrill to the dialysis fistula. Neuro: Cranial nerves II through XII intact, no focal neurological deficits. NIH stroke scale 0. Skin: Clean dry and intact with no rash, purpura, petechiae, vesicles or pustules. Backs/flank: No CVA tenderness, no midline spinal tenderness, no deformity. Psych: Normal mood and affect. No SI, HI or acute psychosis. Const Vital Signs: 04/02/24 12:05 04/02/24 14:05 Temperature 97.9 F 97.8 F Temperature Source Temporal Oral Pulse Rate 93 100 Respiratory Rate 12 18 Blood Pressure 170/71 H 178/78 H Blood Pressure Mean 104 111 Pulse Ox 92 94 Oxygen Delivery Method Room Air Room Air Positive well nourished and well developed General Appearance ED: well developed MDM MDM Lab Data Labs: Laboratory Results - last 24 hr 04/02/24 12:37 WBC 4.4 RBC 3.67 L Hgb 11.4 L Hct 34.3 L MCV 93.5 MCH 31.1 MCHC 33.2 RDW Std Deviation 42.8 RDW Coeff of Ben 12.5 Plt Count 182 MPV 9.7 Immature Gran % (Auto) 0.200 Neut % (Auto) 63.8 Lymph % (Auto) 26.5 [place] % (Auto) 6.8 Eos % (Auto) 1.8 Baso % (Auto) 0.9 Absolute Neuts (auto) 2.8 Absolute Lymphs (auto) 1.16 Nucleated RBC % 0 Sodium 134 L Potassium 3.3 L Chloride 96 L Carbon Dioxide 29.0 Anion Gap 10 BUN 10 Creatinine 2.57 H Estim Creat Clear Calc 28.12 Est GFR (MDRD) Af Amer 25 L Est GFR (MDRD) Non-Af 20 L BUN/Creatinine Ratio 3.9 L Glucose 248 H Calcium 8.5 Total Bilirubin 0.50 AST 22 ALT 19 Alkaline Phosphatase 94 Total Protein 6.9 Albumin 3.2 Globulin 3.7 Albumin/Globulin Ratio 0.9 Radiography Diagnostic Testing: Clinical Impression(s) from Imaging Studies Brain CT 04/02/24 12:17 IMPRESSION: No CT evidence of acute intracranial pathology. Reading Location: [facility] [address] Head/Neck CTA 04/02/24 12:35 IMPRESSION: No large vessel occlusions. Calcifications in the bilateral internal carotid arteries for which outpatient carotid ultrasound is advised for optimal characterization One or more dose reduction techniques were used (e.g., Automated exposure control, adjustment of the mA and/or kV according to patient size, use of iterative reconstruction technique). Reading Location: [facility] [address] Chest X-Ray 04/02/24 13:03 IMPRESSION: UNREMARKABLE SINGLE VIEW OF THE CHEST AND ABDOMEN. Reading Location: [facility] [address] EKG Normal sinus rhythm: Attestation: I personally reviewed and interpreted this EKG as follows: Interpretation: Sinus Rhythm Comments: Sinus rhythm, rate 93 bpm, VT interval 138 ms, QRS duration 88 ms, no acute ST elevation, no acute infarct noted. Treatment and Re-Evaluation :: Differential diagnosis includes however is not limited to: CVA, TIA, hypotension, hypertensive urgency, electrolyte abnormality, anxiety Patient appears generally well, vital signs are stable, patient is nontoxic-appearing.Presenting to the emergency department for having similar episodes from previous of lower blood pressure, bilateral arm tingling, facial droop at the end of a dialysis treatment. As well again while at [facility]. Looking at the patient's previous visit to the emergency department, patient was admitted on March 17, 2024. Patient is currently on an aspirin, a statin. Patient story is similar to previous. Patient was also at dialysis when this happened again. She again was asymptomatic by the time that she arrived here. At that time, she had left hand numbness she was admitted to the PCU. MRI of the brain was negative for any acute infarct. CTA of the head and neck showed no significant stenosis or thrombosis aneurysm or dissection. Echo showed the LA was mildly enlarged. Bubble contrast ID negative for PFO/ASD. Patient was discharged home. She was already on a baby aspirin, and a high intensity atorvastatin. This was continued. So at this time, patient was use of basic laboratory values, a CT scan of the brain. All radiologic examinations were read, reviewed by the emergency department attending. From these reads, a plan of care will be put in place. Patient's neuroexam was grossly unremarkable. NIH score 0. On reevaluation, the patient was resting comfortably patient CTA CT of the brain showed no evidence of any acute intracranial pathology. CTA of the head and neck shows no large vessel occlusions. Calcifications of the bilateral internal carotid arteries for which outpatient carotid ultrasound is advised. No other acute process. No LVO. Patient's chest x-ray showed no acute process. Laboratory values look generally well, patient's anemia was chronic and 11.4, no leukocytosis, chemistry showed a creatinine of 2.57, patient did have dialysis today, sugar was 248. Patient's COVID flu influenza was negative. EKG was unremarkable. Patient remains asymptomatic. At this time, I do believe the patient can be discharged home. I did reach out to the hospitalist, we discussed the patient's case specially because the patient was just admitted a 1.5 weeks ago. At this time, patient is stable for discharge. Patient struck to return for any worsening symptoms. I do believe the patient needs to talk to the electric meter tester shop, they might be pulling out too much as when she is getting hypotensive. Discharge Plan Triage Chief Complaint: Neuro S/Sx ED Midlevel Provider: Tyler Butler ED Provider: Dave Sanz Dx/Rx/DC Orders Clinical Impression: Paresthesias, Hypotension, History of end stage renal disease Instructions: ED Low Blood Pressure, All Causes, ED Paraesthesias Prescriptions: No Action cholecalciferol (vitamin D3) [Vitamin D3] 1,000 UNIT capsule 5,000 unit PO DAILY omeprazole 20 MG capsule 20 mg PO DAILY glipizide 5 MG tablet 10 mg PO DAILY Patient Comments: per pt hasn't taken in approx 2 months r/t insurance issues & being unable to afford. melatonin 5 MG capsule 10 mg PO QHS atorvastatin 40 mg tablet 40 mg PO QHS calcitriol 0.25 mcg capsule 1.5 mcg PO .TuThursSat Patient Comments: 6 capsules per pt on days of dialysis Trulicity 1.5 mg/0.5 mL pen injector 1.5 mg SUBCUT CORNELL Patient Comments: PT STATED HASNT USED IN TWO MONTHS R/T INSURANCE ISSUES amitriptyline 100 mg tablet 100 mg PO QHS sevelamer carbonate 800 mg tablet 1,600 mg PO TID acetaminophen [Tylenol] 325 mg capsule 650 mg PO Q6H PRN (Reason: pain ) ondansetron HCl 4 mg tablet 4 mg PO Q8H PRN PRN (Reason: nausea and vomiting) oxycodone-acetaminophen 5-325 mg tablet 1 tab PO Q6H PRN PRN (Reason: Pain) 3 Days Qty: 12 0RF Patient Comments: per pt no longer taking aspirin 81 mg capsule 81 mg PO DAILY hydroxyzine HCl 50 mg tablet 50 mg PO Q6H PRN (Reason: itching) sertraline 50 mg tablet 50 mg PO DAILY nifedipine 30 mg tablet extended release 24hr 30 mg PO QHS Primary Care Provider: Aki Archibald Referrals: Aki Archibald MD [Primary Care Provider] - Activity Restrictions/Additional Instructions: Please continue to follow-up outpatient. Return for any worsening symptoms Print Language: Beninese Disposition Disposition: Home, Self Care
--- NOTE | 2024-04-02 12:35 | CT_ITS ---
PROCEDURE: CTA HEAD AND NECK W/ CONTRAST REASON FOR EXAM: Stroke1 TECHNIQUE: CTA imaging of the head and neck from the aortic arch to the skull vertex with intravenous contrast. 3D reconstructions. CONTRAST: COMPARISON: None. # of known CTs in the past 12 months: 0 # of known Cardiac Nuclear Medicine Studies in the past 12 months: 0 FINDINGS: Aortic Arch: Normal size and branching pattern. No significant atherosclerotic plaque. Brachiocephalic and Subclavians: Unremarkable RIGHT Carotid: Right CCA: Unremarkable. Right ICA: Prominent calcifications. Right ECA: Unremarkable. LEFT Carotid: Left CCA: Unremarkable. Left ICA: Prominent calcifications. Left ECA: Unremarkable. Vertebrals: Codominant. Arise from the subclavians. Both vertebrals form the basilar. RIGHT Vertebral: Unremarkable. LEFT Vertebral: Unremarkable. No intracranial aneurysms or large vascular malformations are identified. Anterior cerebral arteries: Unremarkable. Middle cerebral arteries: Unremarkable. Basilar artery: Unremarkable. Posterior cerebral arteries: Unremarkable. Other major branches of the posterior circulation: Unremarkable. Major venous structures: Unremarkable. Other findings: No lymphadenopathy. Lung apices are clear. Bones are unremarkable. CT/CTA Head AND Neck W/ Contrast IMPRESSION: No large vessel occlusions. Calcifications in the bilateral internal carotid arteries for which outpatient carotid ultrasound is advised for optimal characterization One or more dose reduction techniques were used (e.g., Automated exposure contr ol, adjustment of the mA and/or kV according to patient size, use of iterative reconstruction technique). Reading Location: [facility]
[2024-04-02 12:39] VITALS: BMI 30.4
[2024-04-02 12:41] LABS: Absolute Lymphocyte Count 1.16 X10^3/uL (0.83-4.51); Absolute Neutrophil Count 2.8 X10^3/uL (2.0-7.7); Basophil# 0.04 X10^3/uL; Basophil% 0.9 % (0-1); Eosinophil# 0.08 X10^3/uL; Eosinophils% 1.8 % (0-5); Hematocrit 34.3 % (37-47); Hemoglobin 11.4 g/dL (12.0-15.0); Lymphocyte # 1.16 X10^3/ul (0.83-4.51); Lymphocyte % 26.5 % (19-41); Mean Corp Hgb Conc 33.2 g/dL (32-36); Mean Corpuscular Hgb 31.1 pg (27.0-32.0); Mean Corpuscular Volume 93.5 fL (81-99); Mean Platelet Vol. 9.7 fl (6.2-12.0); Monocyte% 6.8 % (0-10); NRBC Flagged by Analyzer 0 % (0-5); Neutrophil # 2.79 X10^3/uL (2.7-7.7); Neutrophil % 63.8 % (47-70); Platelet Count 182 K/mm3 (150-450); RBC Distribution Width CV 12.5 % (11.6-14.6); RBC Distribution Width SD 42.8 fl (35.1-43.9); Red Blood Count 3.67 M/mm3 (4.2-5.4); White Blood Count 4.4 K/mm3 (4.4-11.0)
[2024-04-02 12:56] LABS: ALB/GLOB Ratio 0.9 RATIO (0.9-2.4); AST(SGOT) 22 U/L (15-37); Alanine Aminotransfer ALT/SGPT 19 U/L (13-56); Albumin, Serum 3.2 g/dL (3.2-5.0); Alkaline Phosphatase 94 U/L (45-117); Anion Gap 10 (5-15); BUN 10 mg/dL (7-18); BUN/Creat Ratio 3.9 RATIO (10-20); Calcium,Total 8.5 mg/dL (8.5-10.1); Chloride 96 mmol/L (98-107); Creatinine, Serum 2.57 mg/dL (0.55-1.02); EST Glomerular Filtration Rate 20 mL/min (>60); Est Glom Filt Rate - Afr Amer 25 mL/min (>60); Estimated Creatinine Clearance 28.12 ml/min; Globulin 3.7 g/dL (2.2-4.2); Glucose 248 mg/dL (74-106); Potassium 3.3 mmol/L (3.5-5.1); Protein, Total 6.9 g/dL (6.4-8.2); Sodium Level 134 mmol/L (136-145)
--- NOTE | 2024-04-02 13:03 | RAD_ITS ---
PROCEDURE: CHEST 1 VIEW (PORTABLE) REASON FOR EXAM: Cough TECHNIQUE: Single frontal image including the chest and abdomen. COMPARISON: None. FINDINGS: The cardiothymic contour is normal. The lungs are clear. Bowel gas pattern is normal. No evidence of bowel obstruction or free air. The bones are unremarkable. No radiopaque foreign body is identified. RAD/Chest 1 View (Portable) IMPRESSION: UNREMARKABLE SINGLE VIEW OF THE CHEST AND ABDOMEN. Reading Location: [facility]
[2024-04-02 14:05] VITALS: BP 178/78; PULSE 100; RESP 18; TEMP 36.6; O2SAT 94
[2024-04-02 14:42] VITALS: BP 173/78; PULSE 100; RESP 16; TEMP 36.9; O2SAT 94
[2024-04-02] MEDS: Acetaminophen 500 MG Tablet 1000 MG PO (14:46)
== END 2024-04-02 14:49 | disposition home or self-care (01) ==
PROVIDERS: Nurse Practitioner; Emergency Provider Emergency Medicine; PCP Family Medicine; Referring Provider Emergency Medicine; Visit Provider Emergency Medicine
DX: R20.2 Paresthesia of skin (principal); I12.0 Hypertensive chronic kidney disease with stage 5 chronic kidney disease or end stage renal disease; N18.6 End stage renal disease; J44.9 Chronic obstructive pulmonary disease, unspecified; E11.22 Type 2 diabetes mellitus with diabetic chronic kidney disease; E11.40 Type 2 diabetes mellitus with diabetic neuropathy, unspecified; E78.5 Hyperlipidemia, unspecified; R29.700 NIHSS score 0; Z87.891 Personal history of nicotine dependence; R29.810 Facial weakness; Z99.2 Dependence on renal dialysis; I65.23 Occlusion and stenosis of bilateral carotid arteries; I95.9 Hypotension, unspecified; R20.0 Anesthesia of skin; K21.9 Gastro-esophageal reflux disease without esophagitis; Z79.82 Long term (current) use of aspirin; Z79.899 Other long term (current) drug therapy; Z86.73 Personal history of transient ischemic attack (TIA), and cerebral infarction without residual deficits; D64.9 Anemia, unspecified
CPT/HCPCS: 70450; 70496; 70498; 71045; 80053; 85025; 87631; 93005; 99285; Q9967; A4216

== ENCOUNTER 2024-08-22 14:30 | Outpatient (RCR) | payer MEDICARE, MEDICAID, SELFPAY ==
--- NOTE | 2024-06-09 13:05 | HP.PTEVAL ---
Patient's Visit Information Visit Information Visit Information: Margareth OLIVARES is a 59 year old F referred to Physical Therapy by REHANA Chowdhury with a diagnosis of CHRONIC PAIN ,FIBROMYALGIA , WEAKNESS OF BOTH LOWER EXTREMTIES. Date of Evaluation: 06/09/24 Physical Therapist: Cristi Meneses, PT, Cert MDT, OCS Visit Plan Frequency: 2x /Week Duration: 4 Weeks Plan: PT INTERVENTIONS AQUATIC THERAPY BUE/LE STRENGTHENING /ROM,ENDURANCE EX'S ,CORE STRENGTHENING ,AND FUNCTIONAL STRENGTHENING Subjective Subjective: This 59 y/o female present to physical therapy with chronic pain ,and leg weakness. Patient has comorbities with weakness in legs with h/o tibia fibula last June 2023. Patient has had chronic pain with fibromyalgia. Patient has had falls 4x past year. Patient c/o leg weakness . Patient has kidney failure tue/thurs and SAT .Patient lives alone 1 story apartments with 1 step. Patient has tub/shower. Patient has caser shoe parts. I with ADLS and bathing. In process in getting [employer] . Patient has leg pain .Patient 300 ft then needs to rest due to leg pain and stand < 5mins affects ADLS and housework tasks . Patient walks with out acne in house. Patient has parestehesia/tingling neuropathy in extremities. No SOB. Patient not sleeping . Patient seen DR RUGGIERO and recommended Aquatics PT. Patient was in [facility] for 4 months. Patient condition affects QOl and function. SOCIAL: single VOCATION: disablity Pain Bilateral Lower Extremity: Pain Intensity (Out of 10): 5 Pain Intensity Range: 10 Bilateral Back: Pain Intensity (Out of 10): 4 Pain Intensity Range: 10 Comment: standing Objective Objective: POSTURE: mild forward posture hip/knees flexed GAIT: ambulates with straight cane forward posture slow armando with 2 point gait NEURO: denies paresthesia/tingling ,reflexes L3-4 ,L4-5 ,L5-S1 1/3 PALAPTION: tender knees and erector spinalis AROM BUE: WFL MMT: quads/hams 4/5 ,hip flexion 4-/5 ,ankle 4/5 ,BUE grossly 4/5 ,shoulder 4-/5 BALANCE: fair+ with cane LUMBAR ROM: flexion mod loss ,extension mod loss ,side glides mod loss FLEXABILITY: hamstrings min tight AROM KNEE: 0-125 degrees Special Tests L/S Slump test left side: Negative L/S Slump test right side: Negative L/S Left Straight Leg Raise: Negative L/S Right Straight Leg Raise: Negative Balance/Special Test Scores Lower Extremity Functional Score: 12 Goals Goal 1:: Patient to be I with Aquatic therapy program Goal Time Frame: 4-6 Weeks Goal 2:: Patient to demonstrate 40% improvement with increase function and ADLS Goal Time Frame: 4-6 Weeks Goal 3:: Patient be able stand and walk > 5mins to perform ADLS at home kitchen with less pain in legs Goal Time Frame: 4-6 Weeks Goal 4:: Patient to improve LEFS score by 5 point to improve ADL's and function Goal Time Frame: 4-6 Weeks Rehabilitation Potential Physical Therapy Diagnosis: This patient has generalized weakness BLE and deconditioning with comorbities influences condition impairs gait and ADLS thus benefit from skilled PT Rehabilitation Potential: Fair Anticipated Interventions Patient/Client Instruction: Educate patient on: Condition and Plan of Care For the Purpose of:: To decrease pain, To improve muscle performance and motor function, To improve ability to perform ADL's, To increase tolerance to activity/condition/position, To improve ability of physical actions for home/community/work/leisure, To improve health of tissue, To decrease soft tissue restriction, To improve endurance, To improve balance and To improve tolerance to ADL's Therapeutic Exercise to Include: Strength training, Endurance training, Balance training, In an aquatic setting and Dynamic Lumbar Stabilization For the Purpose of:: To decrease pain, To increase ROM, To improve nutrient delivery to tissue, To increase oxygenation perfusion, To improve muscle performance and motor function, To improve ability to perform ADL's, To increase tolerance to activity/condition/position, To improve ability of physical actions for home/community/work/leisure, To increase flexibility/ROM and To improve tolerance to ADL's Text: Thank you for the opportunity to evaluate your patient. For Medicare and Medicare HMO plans, please review the plan of care and approve it. It will need to be FAXED BACK to us at [phone] for Medicare purposes. For Medicare only, by signing this I certify the plan of care. Please let me know if there are questions or concerns regarding this plan of care. Physician Signature: Date:
--- NOTE | 2024-10-11 12:55 | HP.PTDCNRP_ITS ---
Patient Information Patient Information: Margareth OLIVARES was seen in my office for initial evaluation on 06/09/24. The following Plan of Care was established for this patient: POC Established Initial Frequency: 2x /Week Initial Duration: 4 Weeks Anticipated Interventions Patient/Client Instruction: Educate patient on: Condition and Plan of Care For the Purpose of:: To decrease pain, To improve muscle performance and motor function, To improve ability to perform ADL's, To increase tolerance to activity/condition/position, To improve ability of physical actions for home /community/work/leisure, To improve health of tissue, To decrease soft tissue restriction, To improve endurance, To improve balance and To improve tolerance to ADL's Therapeutic Exercise to Include: Strength training, Endurance training, Balance training, In an aquatic setting and Dynamic Lumbar Stabilization For the Purpose of:: To decrease pain, To increase ROM, To improve nutrient delivery to tissue, To increase oxygenation perfusion, To improve muscle performance and motor function, To improve ability to perform ADL's, To increase tolerance to activity/condition/position, To improve ability of physical actions for home/community/work/leisure, To increase flexibility/ROM and To improve tolerance to ADL's Last Seen Last Seen: This patient was last seen in our office . Pertinent comments regarding their Physical therapy will appear below: Patient was seen for PT in Aquatics for chronic pain and fibromyalgia At this point I will be discontinuing this patient from physical therapy. I would be happy to see this patient again in the future if found appropriate by the physician. Thank you! Cristi Meneses, PT, Cert MDT, OCS Balance/Gait/Functional tests Balance/Special Test Scores Lower Extremity Functional Score: 12
== END 2024-08-22 19:00 | disposition home or self-care (01) ==
LOC: PT 14:30
PROVIDERS: PCP Family Medicine; Referring Provider Registered Nurse; Visit Provider Registered Nurse
DX: R29.898 Other symptoms and signs involving the musculoskeletal system (principal); M79.7 Fibromyalgia; G89.29 Other chronic pain
CPT/HCPCS: 97110; 97113; 97162

== ENCOUNTER 2024-09-06 18:38 | Emergency (ER) | payer MEDICARE, MEDICAID, SELFPAY ==
[2024-09-06] VITALS (8 sets, daily range): BP systolic 154–173; BP diastolic 75–94; PULSE 102–114; RESP 14–21; TEMP 36.6–37; O2SAT 90–100; BMI 29.2
--- NOTE | 2024-09-06 18:59 | RAD_ITS ---
PROCEDURE: CHEST 1 VIEW (PORTABLE) 09/06/2024 REASON FOR EXAM: CHEST PAIN TECHNIQUE: Frontal view of the chest. COMPARISON: 04/02/2024. FINDINGS: The heart is normal in size. Left basilar and midlung and right basilar opacities which may represent asymmetric edema or infection. No visualized pleural effusion. No acute osseous abnormalities. RAD/Chest 1 View (Portable) IMPRESSION: Pulmonary findings as above. Reading Location: [place] [id number]
--- NOTE | 2024-09-06 18:59 | EKG12_ITS ---
Test Reason : CP Blood Pressure : */* mmHG Vent. Rate : 114 BPM Atrial Rate : 114 BPM P-R Int : 142 ms QRS Dur : 80 ms QT Int : 340 ms P-R-T Axes : 62 52 113 degrees QTcB Int : 468 ms Sinus tachycardia Possible Left atrial enlargement Nonspecific ST and T wave abnormality Abnormal ECG Confirmed by RENATA BERGMAN, VINOD ([id number]), dictionary editor LINDA PICKETT ([id number]) on 09/08/2024 6:36:44 AM Referred By: Confirmed By: VINOD YANEZ MD
--- NOTE | 2024-09-06 19:07 | ED.VIS.CHEST ---
HPI History of Present Illness Chief Complaint: Chest Pain Detail of Chief Complaint: Shortness of breath. Informant: patient Onset/Context/Timing Onset: Days (Started on Thursday. Better yesterday until last evening.) Activity at onset: gradual Timing: Intermittent Quality: Positive for Aching Location: Substernal Current Severity: Mild Maximum Severity: Mild Worsened By: Nothing Relieved By: Nothing Associated Symptoms: Positive for Dyspnea; Negative for Nausea, Vomiting, Diaphoresis, Cough, Fever, Lightheadedness, Acid Reflux or Palpitations Narrative Narrative: 59-year-old female history of end-stage renal disease dialysis been dialysis for 2 years. Also history of diabetes, COPD, DVT, bipolar and hypertension. She is on Plavix and aspirin from recent left fistulogram. Patient is on Thursday she started having shortness of breath associated chest pain across her chest. She said it was better yesterday and again started last night. She says worse at night. Not associated with exertion. No cardiac history. No prior cardiac cath. She has had a prior DVT but no PE. Denies any pleuritic pain or hemoptysis. Prior Similar Symptoms: Yes Recent Illness/Hospitalization: Yes CVD Risk Factors: Positive for Hypertension and Diabetes PE Risk Factors: Positive for Recent Travel/Surgery and Prior DVT or PE; Negative for Cancer or OCP + Smoking + >/=35 TAD Risk Factors: Negative for Marfan's Syndrome [facility] Medical History Fracture of fibula, right, closed Anemia Hyperkalemia Osteoarthritis of right knee Pathological fracture, right tibia, initial encounter for fracture Diabetes Dialysis patient Kidney disease GERD (gastroesophageal reflux disease) Sleep apnea Former smoker Asthma DVT (deep venous thrombosis) ESRD (end stage renal disease) on dialysis Fracture of right lower extremity Inability to walk Diabetes mellitus, type 2 Obesity Chronic anemia COPD with asthma Bipolar disorder Anxiety and depression HLD (hyperlipidemia) HTN (hypertension) Former tobacco use Neuropathy Fibromyalgia Kidney disease, chronic, stage IV (GFR 15-29 ml/min) History of tobacco use History of diabetes mellitus, type II History of COPD History of bipolar disorder Benign essential hypertension History of asthma Home Medications ?Medication ?Instructions ?Recorded ?Last Taken ?Type cholecalciferol (vitamin D3) 25 5,000 unit PO DAILY SUPPLEMENT 10/03/13 01/18/23 History mcg (1,000 unit) capsule (Vitamin D3) omeprazole 20 mg capsule,delayed 20 mg PO DAILY 08/23/14 03/16/24 History release glipizide 5 mg tablet 10 mg PO DAILY DIABETES 04/28/15 01/18/23 History melatonin 5 mg capsule 10 mg PO QHS sleep 05/27/16 01/18/23 History atorvastatin 40 mg tablet 40 mg PO QHS CHOLESTEROL 09/10/22 01/18/23 History dulaglutide 1.5 mg/0.5 mL 1.5 mg subcut CORNELL DIABETES 09/10/22 01/18/23 History subcutaneous pen injector (Trulicity) sevelamer carbonate 800 mg tablet 1,600 mg PO TID 02/04/23 Unknown History aspirin 81 mg capsule 81 mg PO DAILY 06/29/23 Unknown History hydroxyzine HCl 50 mg tablet 50 mg PO Q6H PRN itching 06/29/23 Unknown History acetaminophen 325 mg capsule 650 mg PO Q6H PRN pain 07/02/23 Unknown History (Tylenol) ondansetron HCl 4 mg tablet 4 mg PO Q8H PRN PRN nausea and 07/02/23 Unknown History vomiting oxycodone-acetaminophen 5 mg-325 1 tab PO Q6H PRN PRN Pain 3 days 07/24/23 Unknown Rx mg tablet #12 TABLETS clopidogrel 75 mg tablet 75 mg PO DAILY 09/06/24 Unknown History dulaglutide 0.75 mg/0.5 mL 0.75 mg subcut QWEEK 09/06/24 Unknown History subcutaneous pen injector (Trulicity) duloxetine 30 mg capsule,delayed 30 mg PO DAILY 09/06/24 Unknown History release nifedipine 90 mg tablet,extended mg PO 09/06/24 Unknown History release pregabalin 25 mg capsule 25 mg PO QHS 09/06/24 Unknown History Allergy/AdvReac Type Severity Reaction Status Date / Time balsam carin Allergy Unknown UNKNOWN Verified 09/06/24 18:45 mold Allergy Unknown unknown Verified 09/06/24 18:45 lisinopril Allergy unknown Verified 09/06/24 18:45 Penicillins Allergy Anaphylaxis Verified 09/06/24 18:45 tetracycline (Tetracycline) Allergy Anaphylaxis Verified 09/06/24 18:45 codeine AdvReac Abd Verified 09/06/24 18:45 cramps/diarrhea diphenhydramine HCl (From AdvReac Upset Verified 09/06/24 18:45 Benadryl) Stomach hydrocodone bitartrate (From AdvReac Abd Verified 09/06/24 18:45 Vicodin) cramps/diarrhea NSAIDS (Non-Steroidal AdvReac Unknown Verified 09/06/24 18:45 Anti-Inflamma Family History Mother Heart disease Hypertension Diabetes Kidney disease Father Diabetes Surgical History H/O cataract extraction H/O vitrectomy History of appendectomy History of cholecystectomy H/O vascular surgery H/O gastric bypass S/P cholecystectomy S/P appendectomy Social History household members: none Smoking Status: Former smoker how long ago did patient quit smoking: Quit age 24. alcohol intake: never substance use type: does not use ROS ROS ED ROS Narrative Denies recent illness. Chest pain and shortness of breath. Constitutional Constitutional ED: Denies chills or fever(s) Eyes Eyes: Reports none ENT ENT ED: Denies ear pain Cardiovascular Cardiovascular: Reports as per HPI and chest pain Respiratory/Chest Respiratory/Chest: Reports dyspnea; Denies cough or dyspnea on exertion Gastrointestinal Gastrointestinal: Denies abdominal pain, constipation, diarrhea, melena, nausea or vomiting Genitourinary Genitourinary ED: Denies dysuria or hematuria Musculoskeletal Musculoskeletal: Denies arthralgias or back pain Integumentary Denies abscess Neurologic Neurologic: Denies headache(s) Psychiatric Psychiatric: Denies anxiety Endocrine Endocrinology: Denies cold intolerance Hematologic/Lymphatic Hematologic/Lymphatic: Denies easy bleeding, easy bruising or lymphadenopathy Allergic/Immunologic Allergic/Immunologic ED: Denies mouth swelling, tongue swelling or urticaria EXAM Physical Exam Narrative Exam Narrative: For 9-year-old female sitting upright in bed. No distress. Vital signs are stable afebrile. Pulse ox 91% on room air no signs hypoxia. H EENT exam pupils round react light. Mytrex members. Neck nontender. Lungs clear to auscultation bilaterally. Heart tachycardic 110 no murmur. Chest wall ribs nontender. Abdomen soft nontender. Moving all 4 extremities. Calves are nontender without edema or cords. She has a left dialysis fistula on her forearm it has a palpable pulse. Normal margarine maker strength. Normal dorsi plantarflexion. Back nontender. Neurologically she is awake alert. Answering questions following commands. Const Vital Signs: 09/06/24 18:39 09/06/24 18:42 09/06/24 19:10 Temperature 98.4 F 98.4 F Temperature Source Oral Oral Pulse Rate 114 H 113 H Respiratory Rate 20 H 21 H Blood Pressure 159/94 H 159/94 H Blood Pressure Mean 115 115 Pulse Ox 91 91 Oxygen Delivery Method Room Air Room Air Room Air 09/06/24 19:42 09/06/24 20:00 09/06/24 21:00 Temperature 98.6 F 98.4 F Temperature Source Oral Oral Pulse Rate 106 H 104 H 103 H Respiratory Rate 18 18 16 Blood Pressure 154/75 H 167/75 H 173/78 H Blood Pressure Mean 101 105 106 Pulse Ox 90 93 92 Oxygen Delivery Method Room Air Room Air 09/06/24 22:00 Temperature Temperature Source Pulse Rate 104 H Respiratory Rate 14 Blood Pressure 173/85 H Blood Pressure Mean 111 Pulse Ox 95 Oxygen Delivery Method Positive well nourished and well developed; Negative for cachectic, contractures or unkempt General Appearance ED: well developed and NAD; Negative for unkempt, cachectic or contractures Nutritional Appearance: Negative for cachectic HEENT Reports moist mucous membranes normocephalic and atraumatic Eyes PERRL and EOMs intact bilaterally Neck no lymphadenopathy, supple and no JVD General: Negative for tenderness Chest Wall inspection of chest normal and palpation of chest normal Chest: Negative for tenderness Resp normal respiratory effort and clear to auscultation bilaterally Effort and Inspection: Negative for respiratory distress Auscultation: Negative for rales, rhonchi, wheezes or diminished lung sounds Cardio regular rhythm, S1 normal heart sound and S2 normal heart sound; Negative for regular rate Rate: tachycardic Peripheral Pulses: pulses 2+ throughout GI normal to inspection, nondistended, normoactive bowel sounds, soft to palpation, non-tender, non-distended and no masses Back/Spine no CVA tenderness and no thoracic nor lumbar tenderness General Back: Negative for CVA tenderness Cervical Spine: Negative for cervical spine tenderness Extremity normal to inspection Extremity Narrative: Calves nontender. No edema or cords. General Extremety ED: Negative for edema, pulses abnormal or tenderness General Extremity: Negative for edema or pulses abnormal Neuro oriented x3 and CN's II-XII intact bilaterally Sensorium / Orientation: awake, alert, oriented to person and oriented to place; Negative for oriented to time, confused, lethargic or stuporous Motor Exam: strength 5/5 throughout Psych mental status grossly normal Appearance: Negative for unkempt Mood & Affect: Negative for depressed Skin no rashes or lesions noted and no wounds General Skin Exam: Negative for jaundice Rashes: No rashes noted Trauma: Negative for abrasion or laceration MDM MDM MDM Narrative Medical decision making narrative: Female with shortness of breath and atypical chest pain. Exam benign. Not reproducible. Showing her cardiac workup and really does not sound cardiac chest pain. She has had a history of a DVT we will check a D-dimer if it is negative I will not CAT scan her chest if it is positive I will. Repeat exam patient doing well at 11:15 PM. I went over her test results. Patient is feeling well. She has not had any recent exertional chest pain. She is comfortable being discharged to home. She will follow-up with her physician. Return if worse. History & Record Review Discussion w/independent historian: Patient Additional record(s) reviewed:: Prior inpatient record, Prior outpatient record, Prior ED visit and Prior labs Lab Data Attestation: I reviewed the patient's lab results. Lab results narrative: CBC shows a white count of 4.3. H&H 11 and 33. Platelets 176. D-dimer is elevated 1.9 a CTA of the chest to be obtained. Electrolytes show sodium 133. Gap 14. BUN of 17 creatinine 4.0. Glucose 174. Troponin 89. 2-hour troponin is 90. Chest x-ray pulmonary edema. CTA chest pulmonary edema, small pericardial effusion. Small pleural effusions. Labs: Laboratory Results - last 24 hr 09/06/24 09/06/24 18:50 21:00 WBC 4.3 L RBC 3.53 L Hgb 11.0 L Hct 33.9 L MCV 96.0 MCH 31.2 MCHC 32.4 RDW Std Deviation 49.5 H RDW Coeff of Ben 14.3 Plt Count 176 MPV 10.4 Immature Gran % (Auto) 0.200 Neut % (Auto) 69.2 Lymph % (Auto) 18.7 L Leslie % (Auto) 7.5 Eos % (Auto) 3.7 Baso % (Auto) 0.7 Absolute Neuts (auto) 3.0 Absolute Lymphs (auto) 0.80 L Nucleated RBC % 0 D-Dimer Quant (PE/DVT) 1.90 H* Sodium 133 Potassium 4.8 Chloride 93 L Carbon Dioxide 26.5 Anion Gap 14 BUN 17 Creatinine 4.01 H Estim Creat Clear Calc 17.48 L Est GFR (MDRD) Non-Af 12 L BUN/Creatinine Ratio 4.2 L Glucose 174 H Calcium 8.8 Troponin T High Sens 89 H* Troponin T Hi Sens 2 Hr 90 H* Radiography Chest X-Ray - ED: 1 View, Read by ED Physician, Read by Radiologist, Heart, Mediastinum, Bony Structures, Chronic Changes and CHF Diagnostic Testing: Clinical Impression(s) from Imaging Studies Chest X-Ray 09/06/24 18:59 IMPRESSION: Pulmonary findings as above. Reading Location: [place] [address] Chest CTA 09/06/24 21:31 IMPRESSION: No pulmonary embolism. Probable pulmonary edema. Moderate bilateral pleural effusions. Mild pericardial effusion. Reading Location: [place] [address] Chest x-ray, single view, portable, interpreted by myself the radiologist shows normal cardiac silhouette. Bilateral pulmonary edema. Rhythm Strip Rhythm Strip: Sinus Tach Rate: 114 Ectopy: None EKG Initial EKG: Attestation: I personally reviewed and interpreted this EKG as follows: Interpretation: No Acute Injury Pattern and Sinus Tachycardia Comments: Sinus tachycardia rate of 114 no acute signs of [place]. Inverted T waves in lead V5 and V6. Seen on prior EKGs. Prior EKG tracings: available for review Prior: Unchanged Discharge Plan Triage Chief Complaint: Chest Pain ED Provider: Johnathon Robertson Dx/Rx/DC Orders Clinical Impression: Atypical chest pain, History of end stage renal disease, History of diabetes mellitus Instructions: ED Chest Pain, Uncertain Cause Prescriptions: No Action cholecalciferol (vitamin D3) [Vitamin D3] 1,000 UNIT capsule 5,000 unit PO DAILY omeprazole 20 MG capsule 20 mg PO DAILY glipizide 5 MG tablet 10 mg PO DAILY Patient Comments: per pt hasn't taken in approx 2 months r/t insurance issues & being unable to afford. melatonin 5 MG capsule 10 mg PO QHS atorvastatin 40 mg tablet 40 mg PO QHS calcitriol 0.25 mcg capsule 1.5 mcg PO .Yvette Patient Comments: 6 capsules per pt on days of dialysis Trulicity 1.5 mg/0.5 mL pen injector 1.5 mg SUBCUT CORNELL Patient Comments: PT STATED HASNT USED IN TWO MONTHS R/T INSURANCE ISSUES amitriptyline 100 mg tablet 100 mg PO QHS sevelamer carbonate 800 mg tablet 1,600 mg PO TID acetaminophen [Tylenol] 325 mg capsule 650 mg PO Q6H PRN (Reason: pain ) ondansetron HCl 4 mg tablet 4 mg PO Q8H PRN PRN (Reason: nausea and vomiting) oxycodone-acetaminophen 5-325 mg tablet 1 tab PO Q6H PRN PRN (Reason: Pain) 3 Days Qty: 12 0RF Patient Comments: per pt no longer taking aspirin 81 mg capsule 81 mg PO DAILY hydroxyzine HCl 50 mg tablet 50 mg PO Q6H PRN (Reason: itching) sertraline 50 mg tablet 50 mg PO DAILY nifedipine 30 mg tablet extended release 24hr 30 mg PO QHS Primary Care Provider: Aki Archibald Referrals: Aki Archibald MD [Primary Care Provider] - 3-5 Days Activity Restrictions/Additional Instructions: Follow-up with your doctor to ensure you are improving. Your tests today were unremarkable. I do not know the specific cause of your pain. Follow-up with your doctor for further evaluation. May want to consider discussing with them outpatient stress testing. Return the emergency department if you are feeling a lot worse. Print Language: Gibraltarian Disposition Disposition: Home, Self Care
[2024-09-06 19:09] LABS: Hematocrit 33.9 % (37-47); Hemoglobin 11.0 g/dL (12.0-15.0); Immature Granulocytes Count 0.010 X10^3/uL (0.0-0.0); Mean Corp Hgb Conc 32.4 g/dL (32-36); Mean Corpuscular Volume 96.0 fL (81-99); Mean Platelet Vol. 10.4 fl (6.2-12.0); NRBC Flagged by Analyzer 0 % (0-5); Platelet Count 176 K/mm3 (150-450); RBC Distribution Width CV 14.3 % (11.6-14.6); RBC Distribution Width SD 49.5 fl (35.1-43.9); Red Blood Count 3.53 M/mm3 (4.2-5.4); White Blood Count 4.3 K/mm3 (4.4-11.0)
[2024-09-06 19:41] LABS: Anion Gap 14 (5-15); BUN 17 mg/dL (4-19); BUN/Creat Ratio 4.2 RATIO (10-20); Calcium,Total 8.8 mg/dL (7.6-11.0); Carbon Dioxide 26.5 mmol/L (21.0-32.0); Chloride 93 mmol/L (98-108); Estimated Creatinine Clearance 17.48 ml/min (50-250); Glucose 174 mg/dL (70-99); Potassium 4.8 mmol/L (3.3-5.1); Troponin T High Sensitivity 89 ng/L (<=14)
[2024-09-06 19:54] LABS: D-Dimer Quantitative (DVT/PE) 1.90 FEU/ug/m (0.27-0.49)
--- NOTE | 2024-09-06 21:31 | CT_ITS ---
PROCEDURE: CTA CHEST W/WO CONTRAST 09/06/2024 REASON FOR EXAM: CP AND ELEVATED D-DIMER TECHNIQUE: CTA CHEST W/WO CONTRAST Multiplanar Sagittal and Coronal images were obtained. CONTRAST: Isovue 370 VOLUME: 84 mL One or more dose reduction techniques were used (e.g., Automated exposure control, adjustment of the mA and/or kV according to patient size, use of iterative reconstruction technique). RADIATION DOSE SUMMARY: CTDlvol: 16.62+ 14.10 mGy DLP: 479.34 mGycm COMPARISON: None. FINDINGS: Mild anasarca. No acute osseous abnormalities. Normal caliber thoracic aorta. Mild pericardial effusion. No pulmonary artery filling defects. Moderate bilateral pleural effusions. Interlobular septal thickening. Diffuse ground-glass opacities. No acute upper abdominal abnormalities. CT/CTA Chest W/WO Contrast IMPRESSION: No pulmonary embolism. Probable pulmonary edema. Moderate bilateral pleural effusions. Mild pericardial effusion. Reading Location: [place] [id number]
[2024-09-06 21:56] LABS: Troponin T High Sens 2 HR 90 ng/L (<=14)
== END 2024-09-06 23:37 | disposition home or self-care (01) ==
PROVIDERS: Emergency Provider Emergency Medicine; PCP Family Medicine; Visit Provider Emergency Medicine
DX: R07.89 Other chest pain (principal); I12.0 Hypertensive chronic kidney disease with stage 5 chronic kidney disease or end stage renal disease; N18.6 End stage renal disease; J44.9 Chronic obstructive pulmonary disease, unspecified; E11.22 Type 2 diabetes mellitus with diabetic chronic kidney disease; E11.40 Type 2 diabetes mellitus with diabetic neuropathy, unspecified; Z79.82 Long term (current) use of aspirin; E78.5 Hyperlipidemia, unspecified; Z86.718 Personal history of other venous thrombosis and embolism; Z79.02 Long term (current) use of antithrombotics/antiplatelets; Z87.891 Personal history of nicotine dependence; Z99.2 Dependence on renal dialysis; K21.9 Gastro-esophageal reflux disease without esophagitis; Z79.85 Long-term (current) use of injectable non-insulin antidiabetic drugs
CPT/HCPCS: 71045; 71275; 80048; 84484; 85025; 85379; 93005; 96374; 99285; Q9967; A4216; J2405

== ENCOUNTER 2024-10-10 16:02 | Inpatient (IN) | payer MEDICARE, MEDICAID, SELFPAY ==
[2024-10-10] VITALS (10 sets, daily range): BP systolic 155–181; BP diastolic 75–95; PULSE 105–116; RESP 18–24; TEMP 36.4–36.9; O2SAT 95–100; BMI 28.6; BMI 26.9
--- NOTE | 2024-10-10 16:12 | EKG12_ITS ---
Test Reason : SOB/CP Blood Pressure : */* mmHG Vent. Rate : 113 BPM Atrial Rate : 113 BPM P-R Int : 146 ms QRS Dur : 92 ms QT Int : 334 ms P-R-T Axes : 54 58 147 degrees QTcB Int : [address] & T wave abnormality, consider lateral ischemia Abnormal ECG Confirmed by Kun Plasencia ([id number]), acquisition editor LINDA PICKETT ([id number]) on 10/11/2024 11:43:00 AM Referred By: TB/[email or web address] Confirmed By: Kun Palsencia
--- NOTE | 2024-10-10 16:20 | ED.VIS.DYS ---
HPI History of Present Illness Chief Complaint: Shortness of Breath Narrative Narrative: Chief complaint and HPI: Shortness of breath. 59-year-old female with past medical history of COPD, HTN, HLD, CKD on dialysis Thursday, , Thursday, DM2, fibromyalgia, IBS presents for evaluation of shortness of breath. Patient states over the weekend she had multiple episodes of diarrhea with abdominal cramping. She thinks it was secondary to her IBS. Currently not endorsing any abdominal pain. She states she has had some chest congestion but no cough or URI symptoms. States today developed shortness of breath that progressively worsened. States she follows with a new marble setter Dr. Ferreira with [facility]. Takes albuterol as needed but does not have nebulizers or any maintenance inhaler. When EMS arrived, patient was found to be 70% on room air. They gave a DuoNeb. Patient states she missed dialysis on Thursday secondary to not feeling well. Review of systems: See HPI Medications: As listed on the chart Allergies: As listed on the chart PFSH: Per chart Vital signs: As listed on the chart. Reviewed. Physical exam: Gen: A&O x3, NAD Head: Normocephalic, atraumatic Eyes: No sclera icterus, conjunctiva clear ENT: Moist mucous membranes Neck: Trachea midline, No JVD CV: Tachycardic, regular rhythm, no murmurs, no peripheral edema Resp: Lungs diminished in the bilateral bases, diffuse expiratory wheezing, on nasal cannula GI: Abd soft, non-distended, non-tender, no r/r/g Musc: Full ROM, no deformity Skin: Warm, dry Neuro: Alert, oriented, grossly intact, sensation intact Psych: Cooperative, appropriate mood and affect [facility] Medical History Fracture of fibula, right, closed Anemia Hyperkalemia Osteoarthritis of right knee Pathological fracture, right tibia, initial encounter for fracture Diabetes Dialysis patient Kidney disease GERD (gastroesophageal reflux disease) Sleep apnea Former smoker Asthma DVT (deep venous thrombosis) ESRD (end stage renal disease) on dialysis Fracture of right lower extremity Inability to walk Diabetes mellitus, type 2 Obesity Chronic anemia COPD with asthma Bipolar disorder Anxiety and depression HLD (hyperlipidemia) HTN (hypertension) Former tobacco use Neuropathy Fibromyalgia Kidney disease, chronic, stage IV (GFR 15-29 ml/min) History of tobacco use History of diabetes mellitus, type II History of COPD History of bipolar disorder Benign essential hypertension History of asthma Home Medications ?Medication ?Instructions ?Recorded ?Last Taken ?Type cholecalciferol (vitamin D3) 25 5,000 unit PO DAILY SUPPLEMENT 10/03/13 10/09/24 History mcg (1,000 unit) capsule (Vitamin D3) omeprazole 20 mg capsule,delayed 20 mg PO DAILY 08/23/14 10/09/24 History release melatonin 5 mg capsule 10 mg PO QHS sleep 05/27/16 10/09/24 History atorvastatin 40 mg tablet 40 mg PO QHS CHOLESTEROL 09/10/22 10/09/24 History sevelamer carbonate 800 mg tablet 1,600 mg PO TID 02/04/23 10/10/24 History hydroxyzine HCl 50 mg tablet 50 mg PO Q6H PRN itching 06/29/23 10/09/24 History acetaminophen 325 mg capsule 650 mg PO Q6H PRN pain 07/02/23 Unknown History (Tylenol) ondansetron HCl 4 mg tablet 4 mg PO Q8H PRN PRN nausea and 07/02/23 10/10/24 History vomiting clopidogrel 75 mg tablet 75 mg PO DAILY 09/06/24 10/09/24 History dulaglutide 0.75 mg/0.5 mL 0.75 mg subcut QWEEK 09/06/24 10/09/24 History subcutaneous pen injector (Trulicity) duloxetine 30 mg capsule,delayed 30 mg PO DAILY 09/06/24 10/09/24 History release nifedipine 90 mg tablet,extended 270 mg PO DAILY 09/06/24 10/09/24 History release pregabalin 25 mg capsule 25 mg PO QHS 09/06/24 10/09/24 History albuterol sulfate 90 mcg/actuation 2 puff inhalation Q4H PRN PRN 10/10/24 10/09/24 History aerosol inhaler shortness of breath or wheezing calcitriol 0.25 mcg capsule 1.5 mcg PO TUTHSA 10/10/24 10/08/24 History sucroferric oxyhydroxide 500 mg 500 mg PO TID 10/10/24 10/10/24 History chewable tablet (Velphoro) torsemide 100 mg tablet 100 mg PO DAILY 10/10/24 10/09/24 History Allergy/AdvReac Type Severity Reaction Status Date / Time madhavisam carin Allergy Unknown UNKNOWN Verified 09/06/24 18:45 mold Allergy Unknown unknown Verified 09/06/24 18:45 lisinopril Allergy unknown Verified 09/06/24 18:45 Penicillins Allergy Anaphylaxis Verified 09/06/24 18:45 tetracycline (Tetracycline) Allergy Anaphylaxis Verified 09/06/24 18:45 codeine AdvReac Abd Verified 09/06/24 18:45 cramps/diarrhea diphenhydramine HCl (From AdvReac Upset Verified 09/06/24 18:45 Benadryl) Stomach hydrocodone bitartrate (From AdvReac Abd Verified 09/06/24 18:45 Vicodin) cramps/diarrhea NSAIDS (Non-Steroidal AdvReac Unknown Verified 09/06/24 18:45 Anti-Inflamma Family History Mother Heart disease Hypertension Diabetes Kidney disease Father Diabetes Surgical History H/O cataract extraction H/O vitrectomy History of appendectomy History of cholecystectomy H/O vascular surgery H/O gastric bypass S/P cholecystectomy S/P appendectomy Social History household members: none Smoking Status: Former smoker how long ago did patient quit smoking: Quit age 24. alcohol intake: never substance use type: does not use EXAM Physical Exam Const Vital Signs: 10/10/24 16:03 10/10/24 16:06 10/10/24 16:06 Temperature 97.9 F 97.9 F Temperature Source Oral Oral Pulse Rate 112 H 113 H Respiratory Rate 24 H 24 H Respiratory Effort Normal Short of Breath Respiratory Depth Shallow Respiratory Pattern Normal Blood Pressure 181/91 H 181/91 H Blood Pressure Mean 121 121 Pulse Ox 95 96 Oxygen Delivery Method Nasal Cannula Nasal Cannula Nasal Cannula Oxygen Flow Rate (L/min) 6 6 6 10/10/24 16:15 10/10/24 16:26 10/10/24 17:06 Temperature 98.4 F Temperature Source Oral Pulse Rate 111 H 115 H Respiratory Rate 20 H 23 H Respiratory Effort Respiratory Depth Respiratory Pattern Blood Pressure 155/87 H Blood Pressure Mean 109 Pulse Ox 100 Oxygen Delivery Method Nasal Cannula Nasal Cannula Oxygen Flow Rate (L/min) 6 2 10/10/24 18:00 10/10/24 19:19 Temperature 97.6 F L 98.0 F Temperature Source Temporal Oral Pulse Rate 116 H 114 H Respiratory Rate 21 H 19 H Respiratory Effort Respiratory Depth Respiratory Pattern Blood Pressure 155/87 H 168/81 H Blood Pressure Mean 109 110 Pulse Ox 95 98 Oxygen Delivery Method Room Air Room Air Oxygen Flow Rate (L/min) MDM MDM MDM Narrative Medical decision making narrative: 59-year-old female with past medical history of COPD, HTN, HLD, CKD on dialysis Thursday, , Thursday, DM2, fibromyalgia, IBS presents for evaluation of shortness of breath. Patient states over the weekend she had multiple episodes of diarrhea with abdominal cramping. She missed dialysis. Developed shortness of breath today. Hypoxic on room air and given DuoNeb prior to arrival. Differential diagnosis includes but is not limited to COPD exacerbation, pneumonia, viral illness, fluid overload, electrolyte abnormality, dehydration, hypercapnia, UTI. 500 cc NS bolus ordered with Solu-Medrol and DuoNeb. Although patient endorses diarrhea and abdominal cramping earlier this week, currently denying this at this time. Her abdomen is nontender to palpation therefore I do not think any imaging is needed at this time. VBG without hypercapnia or acidosis. CBC without leukocytosis. Patient has baseline anemia of 11.3. She has new thrombocytopenia of 133. Her D-dimer is elevated at 2.92. Given her hypoxia and shortness of breath cannot rule out PE. Although may be elevated secondary to being a dialysis patient. Patient is scheduled to receive dialysis tomorrow. CTA chest ordered. CMP shows no multiple electrolyte derangements as well as elevated creatinine. Patient is on dialysis. She states she does not know her baseline creatinine. On chart review in August her creatinine was 4.01. All of these derangements are likely secondary to missed dialysis and diarrhea. She is hyponatremia at 128, hyperkalemia of 6.2, anion gap of 21, BUN of 65, creatinine of 8.2. Patient makes urine therefore Lasix ordered for hyperglycemia. Patient already having diarrhea so held off on Kayexalate. Although patient has no EKG changes, did give calcium gluconate. she is hyperglycemic at 298. Magnesium level unremarkable. Lactic acid unremarkable. AST mildly elevated at 34. Troponin elevated at 97, suspect this is secondary to her kidney disease. I did cancel the BNP after ordering it as it will be elevated due to her being a dialysis patient however her lab still resulted in it. It is high. Lipase unremarkable. UA without bacteria although has pyuria. CTA negative for PE. Did bilateral pleural effusions with compressive atelectasis. COPD with scattered areas of groundglass attenuation. Superimposed pneumonia cannot be excluded. Multiple enlarged mediastinal and perihilar lymph nodes, likely reactive. On reevaluation, patient only requiring 2 L nasal cannula. Will treat her for possible pneumonia. She has anaphylaxis to penicillin and therefore meropenem and azithromycin given. This will also cover for her pyorrhea. She will warrant admission. She confirmed understanding of plan. I did call our dialysis center, and dialysis will be available at 7 AM in the morning. Patient discussed with the hospitalist who accepted admission. EKG: Interpreted by me/EM physician: EKG shows sinus tachycardia with nonspecific ST-T wave abnormalities. This is similar to previous EKG in August. Heart rate 113 Diagnostic: Interpreted by me/EM physician: Chest x-ray without pneumonia, pneumothorax. Patient does have vascular congestion. Impression: 1. Acute hypoxia, multifactorial 2. Volume overload with pleural effusions secondary to missed dialysis 3. COPD exacerbation 4. Possible pneumonia 5. Diarrhea with history of IBS 6. Hyponatremia 7. Hyperkalemia 8. SERGIO on CKD secondary to missed dialysis 9. Hyperglycemia known diabetic 10. Elevated troponin secondary to CKD 11. Elevated BNP secondary to CKD 12. Pyuria with possible UTI Lab Data Labs: Laboratory Results - last 24 hr 10/10/24 10/10/24 10/10/24 16:11 16:26 16:54 WBC 6.0 RBC 3.70 L Hgb 11.3 L Hct 33.4 L MCV 90.3 MCH 30.5 MCHC 33.8 RDW Std Deviation 42.9 RDW Coeff of Ben 13.0 Plt Count 143 L MPV 11.0 Immature Gran % (Auto) 0.700 Neut % (Auto) 74.7 H Lymph % (Auto) 16.1 L [place] % (Auto) 5.3 Eos % (Auto) 2.5 Baso % (Auto) 0.7 Absolute Neuts (auto) 4.5 Absolute Lymphs (auto) 0.97 Nucleated RBC % 0 D-Dimer Quant (PE/DVT) 2.92 H* Sodium Cancelled Potassium Cancelled Chloride Cancelled Carbon Dioxide Cancelled Anion Gap Cancelled BUN Cancelled Creatinine Cancelled Estim Creat Clear Calc Cancelled Est GFR (MDRD) Non-Af Cancelled BUN/Creatinine Ratio Cancelled Glucose Cancelled Lactic Acid < 1.0 Calcium Cancelled Magnesium Cancelled Total Bilirubin Cancelled AST Cancelled ALT Cancelled Alkaline Phosphatase Cancelled Troponin T High Sens Cancelled NT pro BNP II Total Protein Cancelled Albumin Cancelled Globulin Cancelled Albumin/Globulin Ratio Cancelled Lipase Cancelled Urine Color Straw Urine Clarity Sl. Cloudy Urine pH 6.0 Ur Specific [place] 1.010 Urine Protein 100 H Urine Glucose (UA) 1000 H Urine Ketones Negative Urine Occult Blood 150 H Urine Nitrite Negative Urine Bilirubin Negative Urine Urobilinogen Normal Ur Leukocyte Esterase 500 H Urine RBC 5-10 SEEN Urine WBC 10-25 SEEN Ur Squamous Epith Cells 0-5 SEEN Urine Bacteria 0 SEEN Urine Mucus 0 SEEN 10/10/24 17:40 WBC RBC Hgb Hct MCV MCH MCHC RDW Std Deviation RDW Coeff of Ben Plt Count MPV Immature Gran % (Auto) Neut % (Auto) Lymph % (Auto) [place] % (Auto) Eos % (Auto) Baso % (Auto) Absolute Neuts (auto) Absolute Lymphs (auto) Nucleated RBC % D-Dimer Quant (PE/DVT) Sodium 128 L Potassium 6.2 H* Chloride 91 L Carbon Dioxide 15.7 L Anion Gap 21 H BUN 65 H Creatinine 8.20 H* Estim Creat Clear Calc 8.46 L* Est GFR (MDRD) Non-Af 5 L BUN/Creatinine Ratio 7.9 L Glucose 298 H Lactic Acid Calcium 8.9 Magnesium 2.2 Total Bilirubin 0.50 AST 34 H ALT 9 Alkaline Phosphatase 66 Troponin T High Sens 97 H* D NT pro BNP II > 22284 H Total Protein 5.8 L Albumin 3.5 Globulin 2.3 Albumin/Globulin Ratio 1.5 Lipase 39 Urine Color Urine Clarity Urine pH Ur Specific [place] Urine Protein Urine Glucose (UA) Urine Ketones Urine Occult Blood Urine Nitrite Urine Bilirubin Urine Urobilinogen Ur Leukocyte Esterase Urine RBC Urine WBC Ur Squamous Epith Cells Urine Bacteria Urine Mucus ABG Data ABG results: ABG 10/10/24 16:35 Specimen Type LILIANA Sample Site Not entered O2 % 2.0 VBG pH 7.46 H VBG pO2 45 H VBG HCO3 27 H VBG Total CO2 28 VBG O2 Sat (Calc) 83 H VBG Base Excess 3 POC Mix VBG pCO2 Pt Tmp 37.6 L O2 Delivery Device Cannula Radiography Diagnostic Testing: Clinical Impression(s) from Imaging Studies Chest X-Ray 10/10/24 17:00 IMPRESSION: Persistent diffuse pulmonary vascular congestion and bibasilar atelectasis. Reading Location: [facility] Chest CTA 10/10/24 17:56 IMPRESSION: 1. No pulmonary embolism is identified. Some of the distal pulmonary arteries cannot be evaluated due to suboptimal opacification. 2. Bilateral pleural effusions with compressive atelectasis. COPD with scattered areas of ground-glass attenuation. Superimposed pneumonia can not be excluded. 3. Multiple enlarged mediastinal and perihilar lymph nodes, likely reactive. Reading Location: [id number] Discharge Plan Triage Chief Complaint: Shortness of Breath ED Provider: Jim Shah Dx/Rx/DC Orders Prescriptions: No Action cholecalciferol (vitamin D3) [Vitamin D3] 1,000 UNIT capsule 5,000 unit PO DAILY omeprazole 20 MG capsule 20 mg PO DAILY melatonin 5 MG capsule 10 mg PO QHS atorvastatin 40 mg tablet 40 mg PO QHS sevelamer carbonate 800 mg tablet 1,600 mg PO TID acetaminophen [Tylenol] 325 mg capsule 650 mg PO Q6H PRN (Reason: pain ) ondansetron HCl 4 mg tablet 4 mg PO Q8H PRN PRN (Reason: nausea and vomiting) hydroxyzine HCl 50 mg tablet 50 mg PO Q6H PRN (Reason: itching) nifedipine 90 mg tablet extended release 270 mg PO DAILY Patient Comments: [NO ORIGINAL SIG] clopidogrel 75 mg tablet 75 mg PO DAILY duloxetine 30 mg capsule,delayed release(DR/EC) 30 mg PO DAILY pregabalin 25 mg capsule 25 mg PO QHS Trulicity 0.75 mg/0.5 mL pen injector 0.75 mg subcut QWEEK torsemide 100 mg tablet 100 mg PO DAILY Velphoro 500 mg tablet,chewable 500 mg PO TID calcitriol 0.25 mcg capsule 1.5 mcg PO TUTHSA Rx Instructions: 1.5 mcg orally 3XW; albuterol sulfate 90 mcg/actuation HFA aerosol inhaler 2 puff INHALATION Q4H PRN PRN (Reason: shortness of breath or wheezing) Primary Care Provider: Aki Archibald Referrals: Aki Archibald MD [Primary Care Provider] - Print Language: Hungarian
[2024-10-10] MEDS: 0.9% Normal Saline (500mL Bag) 500 ML 999 ML IV (16:32)
[2024-10-10 16:39] LABS: FI02 2.0; SITE Not entered; VBG BASE EXCESS 3 mmol/L (-1.0-3.5); VBG PO2 45 mmHg (25-40); VBG SO2 83 % (50-70); VBG TCO2 28 mmol/L (23-33)
[2024-10-10 16:57] LABS: Hematocrit 33.4 % (37-47); Hemoglobin 11.3 g/dL (12.0-15.0); Immature Granulocytes Count 0.040 X10^3/uL (0.0-0.0); Mean Corp Hgb Conc 33.8 g/dL (32-36); Mean Corpuscular Volume 90.3 fL (81-99); Mean Platelet Vol. 11.0 fl (6.2-12.0); NRBC Flagged by Analyzer 0 % (0-5); Platelet Count 143 K/mm3 (150-450); RBC Distribution Width CV 13.0 % (11.6-14.6); RBC Distribution Width SD 42.9 fl (35.1-43.9); Red Blood Count 3.70 M/mm3 (4.2-5.4); White Blood Count 6.0 K/mm3 (4.4-11.0)
[2024-10-10 16:59] LABS: Mucous, Urine 0 SEEN /hpf (<or=2+)
--- NOTE | 2024-10-10 17:00 | RAD_ITS ---
PROCEDURE: CHEST PA AND LATERAL 10/10/2024 REASON FOR EXAM: SHORTNESS OF BREATH TECHNIQUE: CHEST PA AND LATERAL COMPARISON: 09/07/2019 FINDINGS: Hardware: None. Heart: The heart size is normal. Mediastinum: The mediastinal contour is stable. Lungs: Persistent diffuse pulmonary vascular congestion. Bibasilar atelectasis. No definite pneumothorax or sizable pleural effusion. Bones: The bones are unremarkable. RAD/Chest PA and Lateral IMPRESSION: Persistent diffuse pulmonary vascular congestion and bibasilar atelectasis. Reading [facility]
[2024-10-10 17:54] LABS: D-Dimer Quantitative (DVT/PE) 2.92 FEU/ug/m (0.27-0.49)
--- NOTE | 2024-10-10 17:56 | CT_ITS ---
EXAM: CT Angiography Chest Without and With Intravenous Contrast CLINICAL INDICATION: PE TECHNIQUE: Axial computed tomographic angiography images of the chest without and with intravenous contrast. This CT exam was performed using one or more of the following dose reduction techniques: automated exposure control, adjustment of the mA and/or kV according to patient size, and/or use of iterative reconstruction technique. MIP reconstructed images were created and reviewed. COMPARISON: No relevant prior studies available. FINDINGS: LIMITATIONS: Suboptimal opacification of the pulmonary arteries. PULMONARY ARTERIES: No pulmonary embolism is identified. Some of the distal pulmonary arteries cannot be evaluated due to suboptimal opacification. AORTA: No acute findings. No thoracic aortic aneurysm. LUNGS AND PLEURAL SPACES: Bilateral pleural effusions with compressive atelectasis. COPD with scattered areas of ground-glass attenuation. Superimposed pneumonia can not be excluded. No mass. HEART: Unremarkable. No cardiomegaly. No significant pericardial effusion. No evidence of RV dysfunction. MEDIASTINUM: Multiple enlarged mediastinal and perihilar lymph nodes, likely reactive. BONES/JOINTS: No acute fracture. No dislocation. SOFT TISSUES: Unremarkable. LYMPH NODES: See above. CT/CTA Chest W/WO Contrast IMPRESSION: 1. No pulmonary embolism is identified. Some of the distal pulmonary arteries cannot be evaluated due to suboptimal opacification. 2. Bilateral pleural effusions with compressive atelectasis. COPD with scatte red areas of ground-glass attenuation. Superimposed pneumonia can not be excluded. 3. Multiple enlarged mediastinal and perihilar lymph nodes, likely reactive. Reading Location: [facility]
[2024-10-10 17:58] LABS: Color, Urine Straw (Yellow); Glucose, Dipstick 1000 mg/dl (Normal); Ketone-Dipstick Negative (Negative); Leukocyte Esterase-Dipstick 500 /ul (Negative); Nitrite-Dipstick Negative (Negative); Occult Blood-Urine 150 /ul (Negative); Protein-Dipstick 100 mg/dl (Negative); Specific Gravity, Urine 1.010 (1.002-1.030); Urine Bilirubin Dipstick Negative (Negative)
[2024-10-10 18:19] LABS: Lipase 39 U/L (13-75); Magnesium 2.2 mg/dL (1.5-2.2)
[2024-10-10 18:27] LABS: Squamous Epithelial Cells - UA 0-5 SEEN /hpf (5-10)
[2024-10-10 18:28] LABS: Red Blood Cells-Urine 5-10 SEEN /hpf (0-5)
[2024-10-10 19:19] LABS: AST(SGOT) 34 U/L (<=31); Alanine Aminotransfer ALT/SGPT 9 U/L (<=34); Albumin, Serum 3.5 g/dL (3.5-5.0); Alkaline Phosphatase 66 U/L (35-104); Anion Gap 21 (5-15); BUN 65 mg/dL (4-19); BUN/Creat Ratio 7.9 RATIO (10-20); Calcium,Total 8.9 mg/dL (7.6-11.0); Carbon Dioxide 15.7 mmol/L (21.0-32.0); Chloride 91 mmol/L (98-108); Estimated Creatinine Clearance 8.46 ml/min (50-250); Globulin 2.3 g/dL (2.2-4.2); Glucose 298 mg/dL (70-99); Potassium 6.2 mmol/L (3.3-5.1); Pro- Brain NATRIURETIC PEPTIDE > 70000 pg/mL (<=900); Troponin T High Sensitivity 97 ng/L (<=14)
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
--- NOTE | 2024-10-10 21:11 | CM.ED ---
Care Management Face to Face with patient for initial transition planning/care coordination assessment in the ED.? This handbook writer introduced self and role at [facility]. Patient alert and oriented. Patient willing to participate in assessment and is able to answer all questions appropriately.? Care providers, pharmacy, and demographics verified. Admitting Diagnosis: Shortness of breath Other diagnosis history: ?COPD, HTN, HLD, CKD on dialysis, DM2 PCP: Cristela Specialists: ?Sergio.? [facility] physicians:? neurology, endo, pulmonology, vascular surgeon, sleep specialist Preferred Pharmacy: [facility] Insurance: ?[employer] Prescription Benefit: ?yes Living Will/HPOA: ?HPOA completed LNOK: siblings Living Arrangements: ?patient lives alone in a one story apartment.? States she has trouble with bathing at time, cooking, and cleaning.?? Patient goes to dialysis T, TH Sat with [facility]. 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 Patient would like additional home care and meal delivery if able.? Disposition Plan: admission to acute; RN CM/SW to follow for discharge planning needs that may arise. Dinorah Glover, SCIENCE EDUCATION PROFESSOR, COMPUTER NETWORK AND SYSTEMS ENGINEER
--- OUTSIDE RECORDS SUMMARY | 2024-10-10 21:32 | XMS RPT_ITS | CCD ---
Author Organization [facility] CliniSyak Care Team Providers Care Calendar Control Clerk Blood Bank Name Role Phone GRACIELA MITCHELL Unavailable Unavailable PHYSICIAN, NOT RECORDED Unavailable Unavaila ble BREANA ESTEVEZ Unavailable Unavailable KAYLIN ESTEVEZNETH Unavailable Unavailable BREANA ESTEVEZ Unavailable Unavailable BREANA ESTEVEZ Unavailable Unavailable Ignacio Cheatham Unavailable Unavailable SELF, SELF Referring Unavailable Ignacio Cheatham MD Primary Care Provider Christopher [facility], Keti Unavailable Ignacio Cheatham MD Primary Care Provider [facility], Keti Unavailable Ignacio Cheatham MD Primary Care Provider [facility], Keti Unavailable Dillon RN, Kaylin (Rn) Unavailable Unavailable Ignacio Cheatham MD [facility]eti Unavailable Dillon RN, Kaylin (Rn) Unavailable Unavailable Kaylin Carranza RN Unavailable Unavailable Ace [facility] Unavailable Unavailable Zuleika Cheng RN, Chrissy Unavailable [phone] PROVIDER, UNKNOWN Attending Unavailable PROVIDER, UNKNOWN Admitting Unavailable IGNACIO CHEATHAM Primary Care Unavailable Dr. Ignacio Cheatham Primary Care Provider Dr. Minh Arroyo Emergency Provider Dr. Lizzy Bragg Attending Provider Dr. Lizzy Bragg Admit Provider Dr. Lizzy Bragg Other Provider Dr. Sylvester Ortiz Attending Provider Dr. Sylvester Ortiz Other Provider [facility], Keti Unavailable Dillon RN, Kaylin Unavailable Unavailable Zuleika Cheng RN, Chrissy Unavailable [phone] Dr. Ignacio Cheatham Primary Care Provider Dr. Sylvester John Attending Provider Dr. Audra Ahuja Referring Provider Dr. Raul Larkin Attending Provider Dr. Yariel Wilks Emergency Provider Dr. Mone Riggs Admit Provider Dr. Mone Riggs Attending Provider Dr. Mone Riggs Other Provider Dr. Quentin Kim Referring Provider Dr. Deshawn Tucker Other Provider Dr. Sofía Hill Other Provider Dr. Branden Banks Attending Provider Darren, Dr. Otero Other Provider Dr. Emerson Saldaña Attending Provider Dr. Branden Banks Referring Provider Dr. Carolina Caba Attending Provider Rosales, Dr. Carolina Steel Other Provider Dr. Emerson Saldaña Attending Provider Dr. Mone Riggs Referring Provider Dr. Emerson Saldaña Referring Provider Dr. Ignacio Cheatham Primary Care Provider Juliano Abdullahi Primary Care Provider Ignacio Cheatham MD Primary Care Provider [facility], Keti Unavailable Deondre CUSTOMS ENTRY CLERK.BENEFITS ADMINISTRATORTresa Unavailable Lisa CUSTOMS ENTRY CLERK.BENEFITS ADMINISTRATOR, Sury A Unavailable [phone] Suppan CUSTOMS ENTRY CLERK.BENEFITS ADMINISTRATOR, Sury A Unavailable [phone] Suppan CUSTOMS ENTRY CLERK.BENEFITS ADMINISTRATOR, Sury A Unavailable [phone] DORENE MURILLO Attending Unavailable LINDEN, IGNACIO J Primary Care Unavailable DORENE MURILLO Attending Unavailable LINDEN, IGNACIO J Primary Care Unavailable DORENE MURILLO Attending Unavailable LINDEN, IGNACIO J Primary Care Unavailable LINDEN, IGNACIO J Primary Care Unavailable ELEUTERIO WILLIAMSON Attending Unavailable ELEUTERIO WILLIAMSON Admitting Unavailable Lind[place] Dr. Ignacio BERGMAN Primary Care Provider Deondre CUSTOMS BROKER-C, Tresa Attending Provider Deondre CUSTOMS BROKER-C, Tresa Referring Provider [phone] Dr. Johnathon Robertson MD Emergency Provider [phone] Johnathon Robertson Attending Unavailable Murillo, Ignacio Primary Care Unavailable Minh Arroyo Attending Unavailable Linden, Ignacio Primary Care Unavailable Linden, Ignacio Primary Care Unavailable Dave Sanz Attending Unavailable Dave Sanz Referring Unavailable Sylvester Winston Attending Unavailable Murillo, Ignacio Primary Care Unavailable Hipolito Shepard Consulting Unavailable Darren, Branden Attending Unavailable Linden, Ignacio Primary Care Unavailable Brayan Shepardolas F Admitting Unavailable Cristal Blanchard Consulting Unavailable Murillo, Ignacio Primary Care Unavailable Tresa Marcum Attending Unavailable HaydenagenTresa Referring Unavailable Linden, Ignacio Primary Care Unavailable Shilpa Lau Attending Unavailabl e Marye ALEX Efcarlosongbe Referring Unavailabl e Murillo, Ignacio Primary Care Unavailable Marye Breann JOHNSONbe Attending Unavailabl e Linden, Ignacio Primary Care Unavailable Emerson Saldaña Attending Unavailable Murillo, Ignacio Primary Care Unavailable Darren, Branden Attending Unavailable Kotsonis, Hipolito F Admitting Unavailable Kotsonis, Hipolito F Consulting Unavailable Santo, Cristal Consulting Unavailable Darren, Branden Consulting Unavailable Adam Blanchardyn Attending Unavailable LINDEN, IGNACIO Primary Care Unavailable LINDEN, IGNACIO Attending Unavailable LINDEN, IGNACIO Primary Care Unavailable SAIRA JACKSON Attending Unavailable LINDEN, IGNACIO Primary Care Unavailable TRESA MARCUM Referring Unavailable LINDEN, IGNACIO Referring Unavailable LINDEN, IGNACIO Primary Care Unavailable LINDEN, IGNACIO Attending Unavailable [facility] Primary Care Unavailable TRESA MARCUM Attending Unavailable [facility] Primary Care Unavailable LIZ FERREIRA Attending Unavailable TRESA MARCUM Referring Unavailable [facility] Unavailable HEVER CHEEMA Attending Unavailable [facility] Unavailable SAIRA JACKSON Referring Unavailable [facility] Primary Care Unavailable [facility] Primary Care Unavailable TRESA MARCUM Referring Unavailable [facility] Primary Care Unavailable GEGE MCCRARY Attending Unavailable [facility] Primary Care Unavailable TRINIDAD FRAZIER Attending Unavailable TRESA MARCUM Referring Unavailable ALONDRA CHUNG Attending Unavailable [facility] Care Unavailable SHA MYRICK Referring Unavailable [facility] Unavailable TRESA MARCUM Attending Unavailable Allergies Allergy Classification Reported Allergen(s) Allergy Type Date of Onset Reaction(s) Facility Acetaminophen / HYDROcodone (1 source) Acetaminophen / HYDROcodone Drug Allergy 09-23-19 08 Vomiting [facility] Angiotensin Converting Enzyme (HANNAH) Inhibitors (1 source) Lisinopril Drug Allergy 05-27-19 09 Contraindicati on-Medical Surgical [facility] Work Phone: Barium Sulfate (1 source) Barium Sulfate Drug Allergy 05-01-19 24 Unknown [facility] CHAMOMILE ROY (2 sources) CHAMOMILE ROY Drug Allergy 02-03-20 09 Anaphylaxis [facility] diphenhydrAMINE (1 source) diphenhydrAMINE Drug Allergy 09-23-19 08 Rash, Itching [facility] Mold Extract (1 source) Mold Extract Drug Allergy 09-23-19 08 [facility] Opioid Agonists (1 source) Codeine Drug Allergy 09-23-19 08 Vomiting, Other: See Comments [facility] Penicillins (antibiotic) (1 source) Penicillins Drug Allergy 09-23-19 08 Anaphylaxis [facility] Work Phone: Botswanan balsam (1 source) Botswanan balsam Drug Allergy 09-11-19 23 Unknown [facility] Tetracyclines (antibiotic) (1 source) Tetracycline Drug Allergy 09-23-19 08 Rash [facility] vanilla kinney allergenic extract (1 source) vanilla kinney allergenic extract Drug Allergy 09-11-19 23 Unknown [facility] (20 sources) acetaminophen / HYDROcodone; Translations: [HYDROCODONE-ACETA MINOPHEN] Drug Allergy 09-23-19 08 Vomiting [facility] (20 sources) codeine; Translations: [CODEINE] Drug Allergy 09-23-19 08 Vomiting, Other: See Comments [facility] (20 sources) diphenhydrAMINE; Translations: [DIPHENHYDRAMINE HCL] Drug Allergy 09-23-19 08 Rash, Itching [facility] (20 sources) flavor,vanilla; Translations: [VANILLA EXTRACT] Drug Allergy 09-23-19 08 [facility] (20 sources) mold extract; Translations: [MOLD] Drug Allergy 09-23-19 08 unknown [facility] (20 sources) NSAIDs; Translations: [NSAIDS (NON-STEROIDAL ANTI-INFLAMMATORY DRUG)] Propensity to adverse reactions (disorder) 09-14-19 13 Other: See Comments [facility] (20 sources) Penicillins; Translations: [PENICILLINS] Propensity to adverse reactions (disorder) 09-23-19 08 Anaphylaxis [facility] (20 sources) Seasonal allergy; Translations: [SEASONAL ALLERGIES] Propensity to adverse reactions (disorder) 12-15-19 09 Other: See Comments [facility] (20 sources) tetracycline; Translations: [TETRACYCLINE] Drug Allergy 09-23-19 08 Rash [facility] (20 sources) BALSAM 115; Translations: [BALSAM 115] Propensity to adverse reactions (disorder) 09-23-19 08 [facility] (20 sources) CHAMOMILE; Translations: [CHAMOMILE] Propensity to adverse reactions (disorder) 02-03-20 09 [facility] (2 sources) OTHER; Translations: [OTHER] Propensity to adverse reactions (disorder) 09-23-19 08 [facility] (20 sources) Lisinopril; Translations: [LISINOPRIL] Drug Allergy 05-27-19 09 Contraindicati on-Medical Surgical [facility] Work Phone: Comment on above: x (20 sources) spider [Other] Propensity to adverse reactions 09-23-19 08 [facility] Work Phone: (20 sources) HYDROcodone; Translations: [hydrocodone bitartrate] Drug Allergy 07-30-19 22 Abd cramps/diarrhe a [facility] (20 sources) NSAIDS (Non-Steroidal Anti-Inflamma; Translations: [NSAIDS (Non-Steroidal Anti-Inflamma] Propensity to adverse reactions 07-30-19 22 Unknown [facility] (20 sources) Botswanan balsam; Translations: [BALSAM JUAN] Drug Allergy 09-11-19 23 Unknown [facility] (20 sources) vanilla extract flavor; Translations: [VANILLA EXTRACT FLAVOR] Allergy to substance 09-11-19 23 Unknown [facility] (20 sources) Barium Sulfate; Translations: [BARIUM SULFATE] Drug Allergy 05-01-19 24 Unknown [facility] (13 sources) CHAMOMILE ROY Drug Allergy 05-01-19 24 Anaphylaxis [facility] (20 sources) Benadryl Allergy Decongestant; Translations: [BENADRYL ALLERGY DECONGESTANT] Drug Allergy 05-01-19 24 Itching [facility] (1 source) Lisinopril Drug Allergy 09-07-19 [facility] (1 source) Botswanan balsam Drug Allergy 09-07-19 25 [facility] Rep[facility] Medications Current Medications Medication Drug Class(es) Dates Sig (Normalized) Sig (Original) acetaminophen 325 mg oral capsule (20 sources) Start: 07-02-2023 take 2 capsules by mouth every six hours as needed for pain Acetaminophen (Tylenol) 325 mg capsule Active 650 mg PO EVERY 6 HOURS as needed for pain July 02, 2023 12:00am Start: 09-11-2022 End: 02-04-2023 take 2 tablets by mouth every four hours as needed for pain Acetaminophen 325 mg Tablet Discontinued 650 mg PO EVERY 4 HOURS NEEDED as needed for Fever, pain 1-10/10 0 0 September 11, 2022 12:00am February 04, 2023 1:02pm Start: 09-11-2022 End: 02-04-2023 take 650 mg by mouth every four hours as needed Acetaminophen Discontinued 650 MG PO EVERY 4 HOURS NEEDED 0 September 11, 2022 12:00am February 04, 2023 1:02pm take 2 tablets by [facility] every twelve hours acetaminophen (TYLENOL) 500 mg tablet Take 1,000 mg by mouth every 12 hours. Active End: 10-20-2022 take 650 mg rectal route every four hours as needed acetaminophen (TYLENOL) 650 mg suppository 650 mg by RECTAL route every 4 hours as needed. 0 10/20/2022 Discontinued End: 10-20-2022 take 2 tablets by mouth every six hours as needed acetaminophen (TYLENOL) 325 mg tablet Take 650 mg by mouth every 6 hours as needed. 0 10/20/2022 Discontinued Comment on above: 650 mg by RECTAL rou te every 4 hours as needed. Take 650 mg by mouth every 6 hours as needed. Take 1,000 mg by rosenda th every 12 hours. acetaminophen 325 mg / oxyCODONE hydrochloride 5 mg oral tablet (20 sources) Opioid Agonist Start: 06-04-2023 End: 06-09-2023 take 1 tablet by mouth every six hours as needed Oxycodone-Acetam inophen Active 1 TABLET PO EVERY 6 HOURS NEEDED 12 June 09, 2023 Start: 01-15-2023 End: 01-19-2023 take 1 tablet by mouth every six hours as needed Oxycodone-Acetaminophen Discontinued 1 TABLET PO EVERY 6 HOURS NEEDED 12 January 15, 2023 January 19, 2023 2:33pm Start: 07-24-2022 End: 09-25-2023 take 1 tablet by mouth every six hours as needed for pain Oxycodone-Acetaminophen 5-325 mg tablet Active 1 {tbl} PO EVERY 6 HOURS NEEDED as needed for Pain 12 3 July 24, 2023 Open wound of right lower leg Pain of right lower extremity Unspecified open wound, right lower leg, initial encounter Pain in right leg Comment on above: Take 1 tablet by rosenda th every 6 hours as needed for pain. Administered Medications Medication Order MAR Action Action Date Dose Rate Site tuberculin skin test, unspecified formulation Given 06/18/2023 (1 source) Administered Medications Medication Order MAR Action Action Date Dose Rate Site tuberculin skin test, unspecified formulation Given 06/18/2023 [id number] 200 actuat albuterol 0.09 mg/actuat metered dose inhaler (3 sources) beta2-Adrenergic Agonist Start: 09-13-19 take 2 puff(s) by inhalation every four hours as needed albuterol HFA (PROVENTIL HFA, VENTOLIN HFA) 90 mcg/actuation inhaler Inhale 2 puffs as instructed every 4 hours as needed. 1 each 5 09/12/2024 Active aspirin 81 mg oral tablet (20 sources) Platelet Aggregation Inhibitor, Nonsteroidal Anti-inflammatory Drug Start: 06-29-19 take 1 capsule by mouth once daily Aspirin 81 mg capsule Active 81 mg PO DAILY June 29, 2023 12:00am Start: 05-27-2016 End: 07-06-2024 take 1 tablet by mouth once daily Aspirin (Aspir-Low) 81 MG tablet,delayed release (DR/EC) Discontinued 81 mg PO DAILY May 27, 2016 12:00am February 04, 2023 1:02pm Comment on above: Take 1 tablet by rosenda th once daily. atorvastatin 40 mg oral tablet (20 sources) HMG-CoA Reductase Inhibitor Start: End: 024 take 1 tablet by mouth once daily at bedtime for hyperlipidemia atorvastatin (LIPITOR) 40 mg tablet Indications: Mixed hyperlipidemia Take 1 tablet by mouth daily at bedtime. For cholesterol. 90 tablet 3 12/11/2023 Active Comment on above: Take 1 tablet by rosenda th daily at bedtime. For cholesterol. Blood-Glucose Meter (ONETOUCH VERIO FLEX METER) (19 sources) Start: 025 Blood-Glucose Meter (ONETOUCH VERIO FLEX METER) Dispense one meter kit. E11.9 1 each 07/06/2024 Active Blood-Glucose Meter,Continuous (FREESTYLE FESTUS 3 READER) misc (19 sources) Start: 025 Blood-Glucose Meter,Continuous (FREESTYLE FESTUS 3 READER) misc Dispense one reader kit. E11.9 DIALYSIS PATIENT 1 each 07/06/2024 Active Blood-Glucose Sensor (FREESTYLE FESTUS 3 PLUS SENSOR) natty (19 sources) Start: 025 Blood-Glucose Sensor (FREESTYLE FESTUS 3 PLUS SENSOR) natty CHANGE SENSOR EVERY 15 days, USE FOR CONTINUOUS GLUCOSE MONITORING. E11.9 DIALYSIS PATIENT 6 each 3 07/06/2024 Active calcitriol 0.95258 mg oral capsule (20 sources) Vitamin D3 Analog Start: 025 calcitriol (ROCALTROL) 0.25 mcg capsule 6 pills daily 3X/week -- Per diaylsis 06/01/2024 Active Start: 09-10-2022 End: 09-06-2024 take 1.5 ug by mouth once Calcitriol 0.25 mcg capsule Discontinued 1.5 ug PO .Yvette September 10, 2022 12:00am September 06, 2024 11:24pm dialysis day Start: 09-10-2022 take 0.25 ug by mout h twice daily Calcitriol Active 0.25 MCG PO TWICE A DAY September 10, 2022 12:00am Start: 08-21-2022 End: 02-17-2023 take 1 capsule by mouth once daily calcitriol (ROCALTROL) 0.5 mcg capsule Indications: Secondary renal hyperparathyroidism (HCC) Take 1 capsule by mouth once daily. 90 capsule 1 08/21/2022 10/20/2022 Discontinued Start: 12-05-2021 End: 09-23-2022 take 2 capsules by mouth once daily calcitriol (ROCALTROL) 0.25 mcg capsule Indications: Secondary renal hyperparathyroidism (HCC) Take 2 capsules by mouth once daily. 180 capsule 12/05/2021 05/26/2022 Discontinued Start: 08-01-2021 End: 06-01-2024 take 1 capsule by mouth once daily calcitriol (ROCALTROL) 0.25 mcg capsule Indications: Secondary renal hyperparathyroidism (HCC) Take 1 capsule by mouth once daily. 90 capsule 0 08/01/2021 12/05/2021 Discontinued Comment on above: Take 1 capsule by mo uth once daily. Take 2 capsules by m outh once daily. Take 0.25 mcg by rosenda th once daily. Take 0.25 mcg by rosenda th once daily. Per diaylsis cephalexin 250 mg oral capsule (17 sources) Cephalosporin Antibacterial Start: End: take 1 capsule by mouth once daily cephALEXin (KEFLEX) 250 mg capsule Indications: Dysuria Take 1 capsule by mouth once daily for 7 days. Take after dialysis 7 capsule 0 11/19/2022 11/26/2022 Active Start: 08-04-2022 End: 08-18-2022 take 1 capsule by mouth three times daily cephALEXin (KEFLEX) 500 mg capsule Take 1 capsule by mouth three times daily for 14 days. 42 capsule 0 08/04/2022 08/18/2022 Active Start: 06-24-2022 End: 07-01-2022 take 1 capsule by mouth twice daily cephALEXin (KEFLEX) 500 mg capsule Take 1 capsule by mouth twice daily for 7 days. 14 capsule 0 06/24/2022 07/01/2022 Start: 04-02-2022 End: 04-09-2022 take 1 capsule by mouth twice daily cephALEXin (KEFLEX) 500 mg capsule Take 1 capsule by mouth twice daily for 7 days. 14 capsule 0 04/02/2022 04/09/2022 Active Comment on above: Take 1 capsule by mo ut twice daily for 7 days. Take 1 capsule by mo ut three times daily for 14 days. Take 1 capsule by mo ut once daily for 7 days. Take after dialysis cholecalciferol 0.025 mg oral capsule (20 sources) Vitamin D Start: 10-04-19 take 5 capsules by mouth once daily Cholecalciferol (Vitamin D3) (Vitamin D3) 1,000 UNIT capsule Active 5000 U PO DAILY October 03, 2013 12:00am SUPPLEMENT take 1 tablet by mouth twice hernandez ly cholecalciferol (VITAMIN D3) 5,000 unit tab Take 5,000 Units by mouth twice daily. Active take 1 tablet by mouth once kaiden y cholecalciferol (VITAMIN D-3) 5,000 unit tab Take 5,000 Units by mouth once daily. 0 Active Comment on above: Take 5,000 Units by mouth once daily. Take 5,000 Units by mouth twice daily. ciprofloxacin 500 mg oral tablet (4 sources) Quinolone Antimicrobial Start: 08-14-19 End: 08-19-19 take 1 tablet by mouth once daily ciprofloxacin HCl (CIPRO) 500 mg tablet Take 1 tablet by mouth once daily for 5 days. 5 tablet 0 08/13/2021 08/18/2021 Active Start: 06-06-2021 End: 06-09-2021 take 1 tablet by mouth once daily ciprofloxacin HCl (CIPRO) 500 mg tablet Indications: Urinary tract infection without hematuria, site unspecified Take 1 tablet by mouth once daily for 3 days. 3 tablet 0 06/06/2021 06/09/2021 Active Comment on above: Take 1 tablet by rosenda th once daily for 3 days. Take 1 tablet by rosenda th once daily for 5 days. clindamycin 300 mg oral capsule (3 sources) Lincosamide Antibacterial Start: 5 End: take 1 capsule by mouth three times daily clindamycin (CLEOCIN) 300 mg capsule Take 1 capsule by mouth three times a day for 5 days. 15 capsule 04/15/2024 04/20/2024 Active Start: 12-11-2023 End: 12-18-2023 take 1 capsule by mouth twice daily clindamycin (CLEOCIN) 300 mg capsule Indications: Dental infection Take 1 capsule by mouth two times a day for 7 days. 14 capsule 12/11/2023 12/18/2023 Active Start: 07-24-2023 End: 03-17-2024 take 1 capsule by mouth every six hours Clindamycin Hcl (Cleocin Hcl) 300 mg capsule Discontinued 300 mg PO EVERY 6 HOURS 40 0 July 24, 2023 12:00am March 17, 2024 12:27pm clopidogrel 75 mg oral tablet (6 sources) [id number] Platelet Inhibitor Start: 08-26-2024 End: 09-25-2024 take 1 tablet by mouth once daily clopidogrel (PLAVIX) 75 mg tablet Take 1 tablet by mouth once daily. 30 tablet 08/26/2024 09/25/2024 Active clotrimazole 0.01 mg/mg topical ointment (12 sources) Azole Antifungal Start: 08-13-2021 End: 10-28-2021 clotrimazole 1 % oint Apply to affected area twice daily. 56.7 g 0 08/13/2021 10/28/2021 Discontinued Comment on above: Apply to affected ar ea twice daily. CPAP/BIPAP/OTHER (20 sources) Start: 07-29-2024 End: 12-14-2051 CPAP/BIPAP/OTHER APAP 5-20 cmH2O DME [facility] 1 each 07/29/2024 12/14/2051 Active Start: 07-04-2024 End: 07-29-2024 CPAP/BIPAP/OTHER APAP 5-20 c mH2O 1 each 07/04/2024 07/29/2024 Discontinued Start: 07-04-2024 End: 11-19-2051 CPAP/BIPAP/OTHER APAP 5-20 c mH2O 1 each 07/04/2024 11/19/2051 Active doxycycline hyclate 100 mg oral capsule (6 sources) Tetracycline-class Drug Start: 08-10-2024 End: 08-17-2024 take 1 capsule by mouth twice daily doxycycline hyclate (VIBRAMYCIN) 100 mg capsule Indications: Acute exacerbation of chronic obstructive pulmonary disease (HCC) Take 1 capsule by mouth two times a day for 7 days. 14 capsule 08/10/2024 08/17/2024 Active Start: 05-15-2023 take 1 capsule by mo ut twice daily doxycycline hyclate (VIBRAMYCIN) 100 mg capsule Take 1 capsule by mouth two times a day. 14 capsule 0 05/15/2023 Suspended Comment on above: Take 1 capsule by mo [facility] two times a day. 0.5 ml dulaglutide 1.5 mg/ml auto-injector (20 sources) GLP-1 Receptor Agonist Start: 06-01-2024 End: 07-06-2024 dulaglutide (TRULICITY) 0.75 mg/0.5 mL pen injector Indications: Type 2 diabetes, controlled, with neuropathy ([facility]) Inject 0.75 mg subcutaneously one time a week. DX: E11.40 Type 2 DM 4 each 07/06/2024 Active Start: 09-10-2022 Dulaglutide (T rulicity) 1.5 mg/0.5 mL pen injector Active MG SC .every friday September 09, 2022 11:00pm Start: 06-28-2021 End: 07-06-2024 Dulaglutide (Trulicity) 1.5 mg/0.5 mL pen injector Active 1.5 mg SC CORNELL September 10, 2022 12:00am DIABETES Start: 09-25-2020 End: 09-25-2021 inject 0.75 mg by subcutaneous injection every week dulaglutide (TRULICITY) 0.75 mg/0.5 mL pen injector Indications: Type 2 diabetes, controlled, with neuropathy ([facility]) Inject 0.75 mg subcutaneously one time a week. Inject dose once per week. Discard Pen After 12 Each 3 09/25/2020 06/28/2021 Discontinued Comment on above: Inject 0.75 mg subcu taneously one time a week. Inject dose once per week. Discard Pen After Inject 1.5 mg subcut aneously one time a week. INJECT 1.5 MG UNDER THE SKIN ONCE A WEEK DULoxetine 30 mg delayed release oral capsule (20 sources) Serotonin and Norepinephrine Reuptake Inhibitor Start: take 1 capsule by mouth once daily DULoxetine (CYMBALTA) 30 mg capsule Indications: Anxiety Take 1 capsule by mouth once daily. 30 capsule 3 12/11/2023 Active End: 12-11-2023 take 1 capsule by mouth once daily DULoxetine (CYMBALTA) 20 mg capsule Take 20 mg by mouth once daily. 12/11/2023 Discontinued 1 ml heparin sodium, porcine 5000 unt/ml injection (1 source) Unfractionated Heparin, Anti-coagulant Start: 08-04-2023 End: 08-25-2023 inject 1 mL by subcutaneous injection every eight hours heparin 5,000 unit/mL injection Inject 1 mL subcutaneously every 8 hours for 21 days. 63 mL 0 08/04/2023 08/25/2023 Active hydrOXYzine hydrochloride 50 mg oral tablet (20 sources) Antihistamine Start: 03-25-2024 End: 06-23-2024 take 1 capsule by mouth every twenty-four hours as needed for anxiety and anxiety hydrOXYzine pamoate (VISTARIL) 25 mg capsule Indications: Anxiety Take 1 capsule by mouth at bedtime as needed. 30 capsule 2 03/25/2024 06/23/2024 Start: 03-13-2023 End: 06-01-2024 take 1 tablet by mouth every six hours as needed for anxiety and anxiety hydrOXYzine HCl (ATARAX) 50 mg tablet Indications: Anxiety Take 1 tablet by mouth every 6 hours as needed for itching/rash. 30 tablet 06/01/2024 Active Start: 10-22-2022 End: 05-20-2023 hydrOXYzine pamoate (VISTARI L) 25 mg capsule Take by mouth. 0 10/22/2022 05/20/2023 Discontinued Start: 08-04-2022 End: 02-04-2023 take 1 tablet by mouth every six hours as needed Hydroxyzine Hcl 50 mg tablet Discontinued 50 mg PO EVERY 6 HOURS as needed for itching September 10, 2022 12:00am February 04, 2023 1:08pm Comment on above: Take 1 tablet by rosenda th every 6 hours as needed for itching/rash. Take by mouth. levoFLOXacin 250 mg oral tablet (5 sources) Quinolone Antimicrobial Start: 09-15-19 End: 10-29-19 levoFLOXacin (LEVAQUIN) 250 mg tablet Indications: Dental infection Two pills today, then one po q 48 hours. 7 tablet 0 09/14/2021 10/28/2021 Discontinued Comment on above: Two pills today, the n one po q 48 hours. melatonin 5 mg oral capsule (20 sources) Start: 05-28-19 17 take 2 capsules by mouth at bedtime Melatonin 5 MG capsule Active 10 mg PO AT BEDTIME May 27, 2016 12:00am sleep Start: 05-27-2016 take 5 mg by mouth at bedtime Melatonin Active 5 MG PO AT BEDTIME May 27, 2016 12:00am melatonin 5 mg t ablet Take 5 mg by mouth. As needed. Active Comment on above: Take 5 mg by mouth. Take 5 mg by mouth. As needed. metroNIDAZOLE 500 mg oral tablet (1 source) Nitroimidazole Antimicrobial Start: 08-04-19 End: 08-24-19 take 1 tablet by mouth every eight hours metroNIDAZOLE (FLAGYL) 500 mg tablet Take 1 tablet by mouth every 8 hours for 60 doses. 60 tablet 0 08/04/2023 08/24/2023 Active 24 hr NIFEdipine 90 mg extended release oral tablet (20 sources) Dihydropyridine Calcium Channel Darvin Start: 09-07-19 25 Nifedipine 90 mg tablet extended release Active mg PO September 06, 2024 12:00am Start: 03-17-2024 End: 09-06-2024 take 1 tablet by mouth every twenty-four hours at bedtime Nifedipine 30 mg tablet extended release 24hr Discontinued 30 mg PO AT BEDTIME March 17, 2024 1:00am September 06, 2024 11:24pm BP Start: 11-24-2023 End: 06-01-2024 take 3 tablets by mouth every hour NIFEdipine ER (PROCARDIA XL) 30 mg 24 hr tablet Take 3 tablets by mouth every afternoon. -- per dialysis 90 tablet 06/01/2024 Active omeprazole 20 mg delayed release oral capsule (20 sources) Proton Pump Inhibitor Start: 08-23-2014 End: 06-01-2024 take 1 capsule by mouth once daily omeprazole (PRILOSEC) 20 mg capsule Take 1 capsule by mouth once daily. 90 capsule 1 06/01/2024 Active Comment on above: Take 1 capsule by [facility] once daily. ondansetron 4 mg disintegrating oral tablet (20 sources) Serotonin-3 Receptor Antagonist Start: 07-02-2023 take 1 tablet by mouth every eight hours as needed for nausea and vomiting Ondansetron Hcl 4 mg tablet Active 4 mg PO EVERY 8 HOURS NEEDED as needed for nausea and vomiting July 02, 2023 12:00am Start: 03-13-2023 End: 08-10-2024 take 1 tablet by mouth every eight hours as needed for nausea ondansetron orally disintegrating (ZOFRAN ODT) 4 mg disintegrating tablet Indications: Irritable bowel syndrome, unspecified type Take 1 tablet by mouth every 8 hours as needed for nausea/vomiting. 12 tablet 08/10/2024 Active Start: 11-19-2020 End: 10-20-2022 take 1 tablet by mouth every eight hours as needed ondansetron orally disintegrating (ZOFRAN ODT) 4 mg disintegrating tablet Take 1 tablet by mouth every 8 hours as needed for nausea/vomiting. 12 tablet 02/07/2022 10/20/2022 Discontinued Start: 09-26-2020 End: 06-28-2021 take 1 tablet by mouth every six hours as needed for nausea and nausea ondansetron orally disintegrating (ZOFRAN ODT) 4 mg disintegrating tablet Indications: Nausea Take 1 tablet by mouth every 6 hours as needed for nausea/vomiting. 15 tablet 09/26/2020 06/03/2021 Discontinued End: 11-19-2022 ondansetron (ZOFRAN) 4 mg ta blet Take by mouth every 8 hours as needed for nausea/vomiting. 0 11/19/2022 Discontinued Comment on above: Take 1 tablet by rosenda th every 8 hours as needed for nausea/vomiting. Take 1 tablet by rosenda th every 6 hours as needed for nausea/vomiting. Take by mouth every 8 hours as needed for nausea/vomiting. phenazopyridine hydrochloride 200 mg oral tablet (20 sources) Start: 2021 End: 2021 take 1 tablet by mouth every eight hours as needed phenazopyridine (PYRIDIUM) 200 mg tablet Take 1 tablet by mouth three times daily as needed. 6 tablet 0 08/13/2021 12/19/2021 Discontinued Comment on above: Take 1 tablet by rosenda th three times daily as needed. predniSONE 20 mg oral tablet (2 sources) Start: 2024 End: 2024 take 2 tablets by mouth once daily predniSONE (DELTASONE) 20 mg tablet Indications: Acute exacerbation of chronic obstructive pulmonary disease (HCC) Take 2 tablets by mouth once daily for 4 days. 8 tablet 08/10/2024 08/14/2024 Active pregabalin 25 mg oral capsule (20 sources) Start: 2024 End: 2025 take 2 capsules by mouth once daily at bedtime pregabalin (LYRICA) 25 mg capsule Indications: RLS (restless legs syndrome) , Insomnia, unspecified type Take 2 capsules by mouth daily at bedtime for 180 days. 180 capsule 1 09/12/2024 03/11/2025 Active Start: 07-04-2024 End: 10-02-2024 take 1 capsule by mouth once daily at bedtime pregabalin (LYRICA) 25 mg capsule Indications: RLS (restless legs syndrome) , Insomnia, unspecified type Take 1 capsule by mouth daily at bedtime for 90 days. 90 capsule 07/04/2024 09/12/2024 Discontinued Tjuxungj-Ks-Rlb-Fe-FA ( VITAMIN) ORAL Tab (20 sources) Start: 07-08-2011 take 1 tablet by mouth once daily Sqdmmjjb-Jx-Dqs-Fe-FA ( VITAMIN) ORAL Tab Take 1 tablet by mouth once daily. 0 07/08/2011 Suspended Start: 07-08-2011 take 1 tablet by rosenda th once daily Hvryzxkq-Oe-Ubz-Fe-FA ( VITAMIN) ORAL Tab Take 1 tablet by mouth once daily. 0 07/08/2011 Active Comment on above: Take 1 tablet by rosenda th once daily. Vit No.[id number] ( Vitamins) 1 EACH tablet (19 sources) Start: 11-12-2017 take 1 tablet by mouth once daily Vit No.[id number] ( Vitamins) 1 EACH tablet Active 1 EACH PO DAILY November 12, 2017 5:38pm Start: 11-12-2017 End: 09-11-2022 take 1 tablet by mouth once daily Vit No.[id number]-Nroys ( Vitamins) 1 EACH tablet Discontinued 1 NMA PO DAILY November 12, 2017 12:00am September 11, 2022 10:40am Start: 11-12-2017 End: 09-11-2022 take 1 tablet by mouth once daily Vit No.[id number]-Vxeqg ( Vitamins) 1 EACH tablet Discontinued 1 EACH PO DAILY November 11, 2017 11:00pm September 11, 2022 9:40am Start: 11-12-2017 End: 09-11-2022 take 1 tablet by mouth once daily Vit No.[id number] ( Vitamins) 1 EACH tablet Discontinued 1 EACH PO DAILY November 12, 2017 12:00am September 11, 2022 10:40am Start: 11-12-2017 take 1 tablet by rosenda once daily Vit No.[id number] ( Vitamins) 1 EACH tablet Active 1 EACH PO DAILY November 12, 2017 12:00am proparacaine hydrochloride 5 mg/ml ophthalmic solution (3 sources) Local Anesthetic Start: 07-11-2024 End: 07-12-2024 proparacaine 0.5 % 1 drop (ALCAINE) Start: 07-11-2024 End: 07-12-2024 1 drop, BOTH EYES, DIRECT ED, Starting on Thu07/11/24 at 1500, Until Thu07/12/24 at 0259, Administer for pneumo tonometry, tonopen tonometry, or pachymetry. In the event of a proparacaine shortage, administer tetracaine 0.5% ophthalmic drops 1 drop in the left eye as directed for pneumo tonometry, tonopen tonometry, or pachymetry Start: 05-01-2023 End: 05-01-2023 proparacaine 0.5 % 1 Drop (A LCAINE) sevelamer carbonate 800 mg oral tablet (20 sources) Phosphate Binder Start: 12-11-2023 End: 06-01-2024 take 1 tablet by mouth three times daily at mealtime sevelamer carbonate (RENVELA) 800 mg tablet Take 1 tablet by mouth three times a day with meals. Ordered by dialysis 12/11/2023 06/01/2024 Discontinued (Adjust Sig - Block E-Cancel) Start: 02-04-2023 take 2 tablets by mo ut at mealtime sevelamer carbonate (RENVELA) 800 mg tablet Two tablets by mouth with meals -- Ordered by dialysis 06/01/2024 Active Start: 02-04-2023 take 1600 mg by mout h three times daily Sevelamer Carbonate Active 1600 MG PO THREE TIMES A DAY February 04, 2023 1:00am Start: 09-10-2022 End: 01-19-2023 take 2 tablets by mouth at bedtime Sevelamer Hcl 800 mg tablet Discontinued 1600 mg PO AT BEDTIME September 10, 2022 12:00am January 19, 2023 2:33pm Start: 09-10-2022 End: 01-19-2023 take 1600 mg by mouth at bedtime Sevelamer Hcl Discontinued 1600 MG PO AT BEDTIME September 10, 2022 12:00am January 19, 2023 2:33pm Start: 08-12-2022 End: 11-10-2022 take 1 tablet by mouth three times daily sevelamer (RENAGEL) 800 mg tablet Indications: CKD (chronic kidney disease) stage 5, GFR less than 15 ml/min ([facility]) , Hyperphosphatemia Take 1 tablet by mouth three times daily. 90 tablet 2 08/12/2022 11/10/2022 Comment on above: Take 1 tablet by rosenda th three times daily. Take 800 mg by mouth three times a day with meals. sulfamethoxazole 400 mg / trimethoprim 80 mg oral tablet (7 sources) Dihydrofolate Reductase Inhibitor Antibacterial, Sulfonamide Antimicrobial Start: End: take 1 tablet by mouth once daily sulfamethoxazo le-trimethopri m (BACTRIM) 400-80 mg per tablet Take 1 tablet by mouth once daily for 20 doses. 20 tablet 0 08/05/2023 08/25/2023 Active Start: 08-04-2022 End: 08-18-2022 take 1 tablet by mouth once daily sulfamethoxazole-trimethoprim (BACTRIM D S) 800-160 mg per tablet Take 1 tablet by mouth once daily for 14 days. 14 tablet 0 08/04/2022 08/18/2022 Active Comment on above: Take 1 tablet by rosenda th once daily for 14 days. tiZANidine 2 mg oral capsule (19 sources) Central alpha-2 Adrenergic Agonist Start: 10-21-19 End: 01-19-20 take 1 capsule by mouth twice daily as needed tiZANidine HCl (ZANAFLEX) 2 mg capsule Indications: Pain of right lower extremity Take 1 capsule by mouth twice daily as needed. 30 capsule 2 10/20/2022 01/18/2023 Active Comment on above: Take 1 capsule by [facility] twice daily as needed. torsemide 100 mg oral tablet (3 sources) Loop Diuretic Start: 09-11-19 take 1 tablet by mouth once daily torsemide (DEMADEX) 100 mg tablet Take 100 mg by mouth once daily. 09/10/2024 Active tropicamide 10 mg/ml ophthalmic solution (3 sources) Anticholinergic Start: 07-12-19 End: 07-13-19 tropicamide 1 % 1 drop (MYDRIACYL) Start: 07-11-2024 End: 07-12-2024 1 drop, BOTH EYES, DIRECT ED, Starting on Thu07/11/24 at 1500, Until Thu07/12/24 at 0259, Administer for dilation Start: 05-01-2023 End: 05-01-2023 tropicamide 1 % 1 Drop (MYDR IACYL) Completed/Discontinued Medications Medication Drug Class(es) Dates Sig (Normalized) Sig (Original) acetaminophen 325 mg / HYDROcodone bitartrate 5 mg oral tablet (20 sources) Opioid Agonist Start: 09-07-2022 End: 09-11-2022 Hydrocodone-Acetami nophen 5-325 mg tablet Discontinued 1 {tbl} PO EVERY 6 HOURS as needed for pain 12 3 0 September 07, 2022 September 11, 2022 10:40am Pain of lower extremity Pain in leg, unspecified Start: 09-07-2022 End: 09-11-2022 take 1 tablet by mouth every six hours Hydrocodone-Acetaminophen Discontinued 1 TABLET PO EVERY 6 HOURS 12 3 September 07, 2022 September 11, 2022 10:40am Start: 09-07-2022 End: 10-20-2022 HYDROcodone-acetaminophen (N ORCO) 5-325 mg per tablet as directed. 0 09/07/2022 10/20/2022 Discontinued Comment on above: as directed. aluminum hydroxide 40 mg/ml / magnesium hydroxide 40 mg/ml / simethicone 4 mg/ml oral suspension (7 sources) End: 10-21-19 aluminum-magnesium hydroxide-simethicon e (MAALOX,MYLANTA,MAG- AL PLUS) 200-200-20 mg/5 mL suspension Take by mouth every 6 hours as needed. 0 10/20/2022 Discontinued (Course of therapy completed) Comment on above: Take by mouth every 6 hours as needed. amitriptyline hydrochloride 100 mg oral tablet (20 sources) Tricyclic Antidepressant Start: 11-01-19 End: 12-11-19 take 1 tablet by mouth at bedtime Amitriptyline 100 mg tablet Discontinued 100 mg PO AT BEDTIME September 10, 2022 12:00am September 06, 2024 11:23pm DEPRESSION Start: 11-12-2017 take 1 tablet by rosenda th once daily Elavil Active 1 TABLET PO DAILY November 12, 2017 5:33pm Start: 11-12-2017 End: 09-12-2022 Elavil Discontinued 1 {tbl} PO DAILY November 12, 2017 12:00am September 12, 2022 12:51pm Start: 11-12-2017 End: 09-12-2022 take 1 tablet by mouth once daily Elavil Discontinued 1 TABLET PO DAILY November 11, 2017 11:00pm September 12, 2022 11:51am Start: 11-12-2017 End: 09-12-2022 take 1 tablet by mouth once daily Elavil Discontinued 1 TABLET PO DAILY November 12, 2017 12:00am September 12, 2022 12:51pm Start: 11-12-2017 take 1 tablet by rosenda th once daily Elavil Active 1 TABLET PO DAILY November 12, 2017 12:00am Comment on above: Take 1 tablet by rosenda th daily at bedtime. apixaban 2.5 mg oral tablet (20 sources) Factor Xa Inhibitor Start: 01-29-2023 End: 06-29-2023 take 1 tablet by mouth twice daily Apixaban (Eliquis) 2.5 mg tablet Discontinued 2.5 mg PO TWICE A DAY 56 0 January 29, 2023 1:00am June 29, 2023 7:51pm BLOOD THINNER Start: 09-09-2022 End: 01-19-2023 take 1 tablet by mouth twice daily Apixaban (Eliquis) 2.5 mg tablet Discontinued 2.5 mg PO TWICE A DAY September 10, 2022 12:00am January 19, 2023 8:21am Comment on above: Take 1 tablet by rosenda th twice daily. baclofen 10 mg oral tablet (20 sources) gamma-Aminobutyric Acid-ergic Agonist Start: 021 End: take 1 tablet by mouth every eight hours as needed baclofen (LIORESAL) 10 mg tablet Take 1 tablet by mouth three times daily as needed. 30 tablet 1 09/21/2020 10/20/2022 Discontinued Comment on above: Take 1 tablet by rosenda three times daily as needed. bisacodyl 10 mg rectal suppository (7 sources) Stimulant Laxative End: take 10 mg rectal route once daily as needed for constipation bisacodyl (DULCOLAX) 10 mg supp 10 mg by RECTAL route once daily as needed for constipation. 0 10/20/2022 Discontinued (Course of therapy completed) Comment on above: 10 mg by RECTAL rout e once daily as needed for constipation. diclofenac sodium 0.01 mg/mg topical gel (19 sources) Nonsteroidal Anti-inflammatory Drug Start: End: diclofenac (VOLTAREN ARTHRITIS PAIN) 1 % topical gel Apply 2 g to affected area four times daily. 240 g 5 11/19/2022 05/18/2023 Comment on above: Apply 2 g to affecte d area four times daily. docusate sodium 100 mg oral capsule (9 sources) Start: End: take 1 capsule by mouth once daily Docusate Sodium (Dok) 100 mg capsule Discontinued 100 mg PO DAILY January 15, 2023 1:00am March 17, 2024 12:27pm STOOL SOFTENER [id number] 0.15 ml EPINEPHrine 1 mg/ml auto-injector (20 sources) alpha-Adrenergic Agonist, beta-Adrenergic Agonist, Catecholamine End: EPINEPHrine 0.15 mg/0.15 mL (1:1,000) atIn by INJECTION(UNSPECIFI ED PARENTERAL ROUTES) route. 08/01/2021 Discontinued (Discontinued by Patient) Comment on above: by INJECTION(UNSPECI FIED PARENTERAL ROUTES) route. famotidine 20 mg oral tablet (20 sources) Histamine-2 Receptor Antagonist Start: End: take 1 tablet by mouth once daily as needed famotidine (PEPCID) 20 mg tablet Take 1 tablet by mouth once daily as needed. 30 tablet 12/19/2021 10/20/2022 Discontinued Start: 02-18-2021 End: 02-18-2022 take 1 tablet by mouth every other day famotidine (PEPCID) 20 mg tablet Take 1 tablet by mouth every other day. 45 tablet 3 02/18/2021 12/19/2021 Discontinued Comment on above: Take 1 tablet by rosenda th every other day. Take 1 tablet by rosenda th once daily as needed. ferrous sulfate 325 mg oral tablet (20 sources) Start: 11-25-2016 End: 07-09-2023 ferrous sulfate 325 mg (65 mg iron) tablet Take 1 tablet by mouth. 0 11/25/2016 07/09/2023 Discontinued Start: 11-25-2016 End: 07-24-2023 take 1 tablet by mouth once daily Ferrous Sulfate (Iron (Ferrous Sulfate)) 325 MG tablet Discontinued 325 mg PO DAILY November 25, 2016 12:00am July 24, 2023 9:02pm SUPPLEMENT Comment on above: Take 325 mg by mouth . Take 1 tablet by rosenda th. flash glucose scanning reader (FREESTYLE FESTUS 2 READER) (20 sources) Start: 07-22-2021 End: 07-06-2024 flash glucose scanning reader (FREESTYLE FESTUS 2 READER) Use to check glucose 3 times daily and continuously. 1 per year. 1 Each 07/22/2021 07/06/2024 Discontinued Start: 07-22-2021 flash glucose scanning reader (FREESTYLE FESTUS 2 READER) Use to check glucose 3 times daily and continuously. 1 per year. 1 Each 07/22/2021 Active Start: 07-22-2021 flash glucose scanning reader (FREESTYLE FESTUS 2 READER) Use to check glucose 3 times daily and continuously. 1 per year. 1 Each 0 07/22/2021 Suspended Start: 07-22-2021 flash glucose scanning reader (FREESTYLE FESTUS 2 READER) Use to check glucose 3 times daily and continuously. 1 per year. 1 Each 0 07/22/2021 Active Comment on above: Use to check glucose 3 times daily and continuously. 1 per year. flash glucose sensor (FREESTYLE FESTUS 2 SENSOR) kit (20 sources) Start: 07-22-2021 End: 07-06-2024 flash glucose sensor (FREESTYLE FESTUS 2 SENSOR) kit Use to check glucose 3 times daily and continuously. Change every 14 days. 6 per 90 day supply. 6 Each 3 07/22/2021 07/06/2024 Discontinued Start: 07-22-2021 flash glucose sensor (FREESTYLE FESTUS 2 SENSOR) kit Use to check glucose 3 times daily and continuously. Change every 14 days. 6 per 90 day supply. 6 Each 3 07/22/2021 Suspended Start: 07-22-2021 flash glucose sensor (FREESTYLE FESTUS 2 SENSOR) kit Use to check glucose 3 times daily and continuously. Change every 14 days. 6 per 90 day supply. 6 Each 3 07/22/2021 Active Comment on above: Use to check glucose 3 times daily and continuously. Change every 14 days. 6 per 90 day supply. glipiZIDE er 5 mg 24 hr extended release oral tablet (20 sources) Sulfonylurea Start: End: take 1 tablet by mouth every hour glipiZIDE (GLUCOTROL XL) 5 mg 24 hr tablet Take 10 mg by mouth. Per endocrinology 04/04/2023 06/01/2024 Discontinued Start: 10-02-2021 End: 10-20-2022 take 2 tablets by mouth once daily glipiZIDE (GLUCOTROL XL) 5 mg 24 hr tablet Take 2 tablets by mouth once daily. 180 tablet 3 10/02/2021 09/10/2022 Discontinued Start: 10-31-2020 End: 05-03-2022 take 1 tablet by mouth once daily glipiZIDE (GLUCOTROL) 10 mg tablet Take 1 tablet by mouth once daily. 90 tablet 3 05/03/2021 10/02/2021 Discontinued Start: 04-28-2015 take 2 tablets by mo [facility] once daily Glipizide 5 MG tablet Active 10 mg PO DAILY April 28, 2015 1:00am DIABETES Start: 04-28-2015 take 10 mg by mouth once daily Glipizide Active 10 MG PO DAILY April 28, 2015 1:00am Start: 04-28-2015 take 10 mg by mouth twice daily before mealtime Glipizide Active 10 MG PO TWICE DAILY BEFORE MEALS April 28, 2015 5:18pm End: 08-04-2023 take 1 tablet by mouth once daily glipiZIDE (GLUCOTROL XL) 5 mg 24 hr tablet Take 10 mg by mouth once daily. 08/04/2023 Discontinued Comment on above: Take 1 tablet by rosenda once daily. Take 2 tablets by mo [facility] once daily. TAKE 2 TABLETS ONCE DAILY Take 5 mg by mouth o nce daily. Take 10 mg by mouth once daily. Glucose (16 sources) End: 11-19-2022 dextrose (GLUCOSE GEL ORAL) Take by mouth. 0 11/19/2022 Discontinued dextrose (GLUCOS E GEL ORAL) Take by mouth. 0 Active Comment on above: Take by mouth. guaiFENesin (16 sources) End: 11-19-2022 GUAIFENESIN ORAL Take by rosenda . 0 11/19/2022 Discontinued GUAIFENESIN ORAL Take by mouth. 0 Active Comment on above: Take by mouth. 3 ml insulin lispro 100 unt/ml pen injector (20 sources) Insulin Analog Start: 09-11-2022 End: 01-19-2023 Insulin Lispro (Humalog Kwikpen Insulin) 100 unit/mL Insulin Pen Discontinued 0 U SC BEFORE MEALS AND AT BEDTIME 0 September 11, 2022 12:00am January 19, 2023 2:33pm Please contact the information source for Protocol details. Start: 09-11-2022 End: 01-19-2023 Insulin Lispro (Humalog Kwik pen Insulin) 100 unit/mL Insulin Pen Discontinued 0 UNIT SC BEFORE MEALS AND AT BEDTIME 0 September 11, 2022 12:00am January 19, 2023 2:33pm Start: 07-04-2019 inject 10 [IU] by cornell bcutaneous injection once daily Insulin Lispro Active 10 UNIT SQ DAILY July 04, 2019 8:13pm End: 11-19-2022 insulin lispro (HUMALOG KWIK PEN INSULIN SUBCUTANEOUS) Inject subcutaneously. 0 11/19/2022 Discontinued insulin lispro ( HUMALOG KWIKPEN INSULIN SUBCUTANEOUS) Inject subcutaneously. 0 Active Comment on above: Inject subcutaneousl y. labetalol hydrochloride 100 mg oral tablet (20 sources) beta-Adrenergic Darvin Start: 06-10-19 End: 03-17-19 take 1 tablet by mouth twice daily Labetalol 100 mg tablet Discontinued 100 mg PO TWICE A DAY February 04, 2023 1:00am March 17, 2024 12:28pm blood pressure Start: 02-18-2021 End: 06-07-2022 take 1 tablet by mouth twice daily labetalol (TRANDATE) 100 mg tablet Take 1 tablet by mouth twice daily. 180 tablet 3 02/18/2021 06/07/2022 Discontinued Start: 09-21-2020 End: 06-28-2021 take 0.5 tablet by mouth twice daily labetalol (TRANDATE) 200 mg tablet Indications: Essential hypertension Take 0.5 tablets by mouth twice daily. 60 tablet 5 09/21/2020 06/28/2021 Discontinued Start: 04-28-2015 End: 02-04-2023 Labetalol 200 MG tablet Disc ontinued 100 mg PO TWICE A DAY April 28, 2015 1:00am February 04, 2023 12:59pm Start: 04-28-2015 End: 02-04-2023 take 100 mg by mouth twice daily Labetalol Discontinued 100 MG PO TWICE A DAY April 28, 2015 1:00am February 04, 2023 12:59pm Start: 04-28-2015 take 200 mg by mouth twice daily Labetalol Active 200 MG PO TWICE A DAY April 28, 2015 12:00am Start: 04-28-2015 take 200 mg by mouth once kaiden y Labetalol Active 200 MG PO DAILY April 28, 2015 5:18pm Comment on above: Take 0.5 tablets by mouth twice daily. Take 1 tablet by orsenda th twice daily. Lidocaine (20 sources) Antiarrhythmic, Amide Local Anesthetic Start: 12-21-2023 End: 12-21-2023 lidocaine 10 mg/mL (1 %) 5 mL injection (XYLOCAINE) Start: 12-21-2023 End: 12-21-2023 5 mL, Injection - FOR ORTHO USE ONLY, ONCE, 1 dose, Starting on Thu12/21/23 at 1518, Until Thu12/21/23 at 1518 Start: 09-11-2022 End: 01-19-2023 Lidocaine 5 % Adhesive Patch,Medicated Discontinued 2 NMA TOPICAL DAILY 0 0 September 11, 2022 12:00am January 19, 2023 2:33pm Please contact the information source for Protocol details. apply 1 dose transde rmal route every twenty-four hours lidocaine (LIDODERM) 5 % Apply 1 Patch as directed every 24 hours. 0 Active Comment on above: Apply 1 Patch as dir ected every 24 hours. magnesium hydroxide 80 mg/ml oral suspension (16 sources) End: 11-19-2022 magnesium hydroxide (MOM) 400 mg/5 mL suspension Take by mouth once daily as needed. 0 11/19/2022 Discontinued Comment on above: Take by mouth once d aily as needed. methoxy peg-epoetin beta (MIRCERA INJECTION) (4 sources) Start: 03-07-2023 End: 05-20-2023 methoxy peg-epoetin beta (MIRCERA INJECTION) 150 mcg. 0 03/07/2023 05/20/2023 Discontinued Start: 03-07-2023 End: 03-05-2024 methoxy peg-epoetin beta (GA RCERA INJECTION) 150 mcg. 0 03/07/2023 03/05/2024 Active Comment on above: 150 mcg. methylPREDNISolone 4 mg oral tablet (17 sources) Corticosteroid Start: 2022 End: 2022 Methylprednisolone 4 mg Tablets,Dose Pack Discontinued 4 mg PO 0800,1200,1700 0 0 September 11, 2022 12:00am January 19, 2023 2:33pm naproxen 500 mg oral tablet (13 sources) Nonsteroidal Anti-inflammatory Drug Start: 2022 End: 2022 take 1 tablet by mouth twice daily as needed for pain Naproxen (Naprosyn) 500 mg tablet Discontinued 500 mg PO TWICE A DAY as needed for pain 14 0 January 13, 2023 1:00am January 19, 2023 2:33pm Comment on above: Take 1 tablet by [facility] two times a day as needed (for pain/inflammation). Take with food. oxyCODONE hydrochloride 5 mg oral capsule (20 sources) Opioid Agonist Start: 2023 End: 2024 take 1 capsule by mouth every six hours as needed for pain Oxycodone 5 mg capsule Discontinued 5 mg PO EVERY 6 HOURS as needed for pain 12 3 0 November 03, 2023 March 17, 2024 12:29pm Contusion of right knee Hematoma of frontal scalp Contusion of right knee, initial encounter Contusion of scalp, initial encounter Start: 09-25-2023 End: 10-02-2023 take 1 tablet by mouth every six hours as needed for pain Oxycodone 5 mg tablet Discontinued 5 mg PO EVERY 6 HOURS as needed for pain 20 7 0 September 25, 2023 October 01, 2023 12:00am October 02, 2023 12:04am Closed fracture of right fibula Start: 08-08-2023 End: 08-22-2023 take 1 tablet by mouth every six hours as needed for pain Oxycodone 5 mg tablet Discontinued 5 mg PO EVERY 6 HOURS as needed for pain 20 14 0 August 08, 2023 August 21, 2023 12:00am August 22, 2023 12:15am Dehiscence of wound Disruption of wound, unspecified, initial encounter For moderate to severe pain. Start: 08-08-2023 End: 08-22-2023 take 0.5 tablet by mouth every six hours as needed for pain Oxycodone 5 mg tablet Discontinued 5 mg PO As Directed as needed for pain 10 14 0 August 08, 2023 August 21, 2023 12:00am August 22, 2023 12:15am Dehiscence of wound Closed fracture of right fibula Disruption of wound, unspecified, initial encounter 1/2 (2.5mg) tab p.o. every 6 hrs for mild to moderate pain. 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 28 tablet 0 06/30/2023 07/07/2023 Start: 03-05-2023 End: 03-10-2023 take 1 tablet by mouth every six hours as needed for pain Oxycodone 5 mg tablet Discontinued 5 mg PO EVERY 6 HOURS as needed for pain 10 5 0 March 05, 2023 March 09, 2023 1:00am March 10, 2023 1:04am Pain of right lower extremity Pain in right leg Start: 01-29-2023 End: 02-04-2023 take 1 tablet by mouth every six hours as needed for pain Oxycodone 5 mg tablet Discontinued 5 mg PO EVERY 6 HOURS as needed for pain 12 3 0 January 29, 2023 February 04, 2023 1:08pm Closed fracture of right fibula Start: 10-15-2022 End: 01-29-2023 take 1 tablet by mouth every eight hours as needed for pain Oxycodone 5 mg tablet Discontinued 5 mg PO Q8H as needed for pain 10 3 0 October 15, 2022 January 29, 2023 12:40pm Stress fracture Stress fracture, unspecified site, initial encounter for fracture Start: 09-11-2022 End: 01-19-2023 take 1 tablet by mouth every four hours as needed for pain Oxycodone 5 mg Tablet Discontinued 5 mg PO EVERY 4 HOURS NEEDED as needed for Pain Score 4-10 12 3 0 September 11, 2022 January 19, 2023 2:33pm Pain of right lower extremity Pain in right leg Start: 09-09-2022 End: 09-12-2022 take 1 tablet by mouth every eight hours as needed for pain Oxycodone (Oxaydo) 5 mg tablet, oral only Discontinued 5 mg PO Q8H as needed for pain 0 September 10, 2022 12:00am September 11, 2022 10:40am End: 06-17-2023 take 1 capsule by mouth every four hours as needed oxyCODONE ir (OXYIR) 5 mg capsule Take 5 mg by mouth every 4 hours as needed for pain. 06/17/2023 Discontinued Comment on above: Take 1 tablet by rosenda th every 8 hours as needed for pain for up to 3 days. Take 5 mg by mouth e very 4 hours as needed for pain. perflutren lipid microspheres 1.3 mL in NaCl (PF) 0.9% 10 mL injection (DEFINITY) (20 sources) Start: 07-03-2021 End: 11-27-2021 perflutren lipid microspheres 1.3 mL in NaCl (PF) 0.9% 10 mL injection (DEFINITY) Start: 07-03-2021 End: 10-02-2022 perflutren lipid microsphere s 1.3 mL in NaCl (PF) 0.9% 10 mL injection (DEFINITY) pioglitazone 45 mg oral tablet (20 sources) Peroxisome Proliferator Receptor alpha Agonist, Peroxisome Proliferator Receptor gamma Agonist, Thiazolidinedione Start: 09-21-2020 End: 10-20-2022 take 1 tablet by mouth once daily pioglitazone (ACTOS) 45 mg tablet Indications: Poorly controlled diabetes mellitus (HCC) Take 1 tablet by mouth once daily. 90 tablet 3 07/26/2021 08/21/2022 Discontinued Start: 11-12-2017 take 30 mg by mouth once daily Pioglitazone Active 30 MG PO DAILY November 12, 2017 5:33pm Comment on above: Take 1 tablet by rosenda th once daily. Pnv,Calcium 26-Vxps-Imykf Acid [ Vitamin With Calcium No.72-Iron 27 Mg-Folic Acid 1 Mg Tablet] ( Vitamin With Calcium No.72-Iron 27 ) 27 mg iron- 1 mg tablet (3 sources) Start: 06-29-2023 End: 03-17-2024 Pnv,Calcium 25-Quwt-Mvmni Acid [ Vitamin With Calcium No.72-Iron 27 Mg-Folic Acid 1 Mg Tablet] ( Vitamin With Calcium No.72-Iron 27 ) 27 mg iron- 1 mg tablet Discontinued 1 {tbl} PO DAILY June 29, 2023 12:00am March 17, 2024 12:29pm Start: 06-29-2023 take 1 tablet by rosenda th once daily Pnv,Calcium 17-Kjtk-Oapuv Acid [ Vitamin With Calcium No.72-Iron 27 Mg-Folic Acid 1 Mg Tablet] ( Vitamin With Calcium No.72-Iron 27 ) 27 mg iron- 1 mg tablet Active 1 TABLET PO DAILY June 29, 2023 12:00am Remove Patch (17 sources) Start: 09-11-2022 End: 01-19-2023 apply 1 dose topically once daily Remove Patch Discontinued 1 NMA topical DAILY@2200 0 September 11, 2022 12:00am January 19, 2023 2:33pm Start: 09-11-2022 End: 01-19-2023 apply 1 dose topically once daily Remove Patch Discontinued 1 patch topical DAILY@2200 0 September 11, 2022 12:00am January 19, 2023 2:33pm Start: 09-11-2022 End: 01-19-2023 apply 1 dose topically once daily Remove Patch Discontinued 1 patch topical DAILY@2200 0 September 10, 2022 11:00pm January 19, 2023 1:33pm Start: 09-11-2022 apply 1 dose topical ly once daily Remove Patch Active 1 patch topical DAILY@2200 0 September 10, 2022 11:00pm Start: 09-11-2022 apply 1 dose topical ly once daily Remove Patch Active 1 patch topical DAILY@2200 0 September 11, 2022 12:00am sennosides, jail 8.6 mg oral tablet (13 sources) Start: 06-17-2023 End: 12-11-2023 take 1 tablet by mouth twice daily senna (SENOKOT) 8.6 mg tab Take 1 tablet by mouth two times a day. 06/17/2023 12/11/2023 Discontinued sertraline 50 mg oral tablet (20 sources) Serotonin Reuptake Inhibitor Start: 03-13-2023 End: 09-06-2024 take 1 tablet by mouth once daily Sertraline 50 mg tablet Discontinued 50 mg PO DAILY June 29, 2023 12:00am September 06, 2024 11:24pm Start: 09-10-2022 End: 02-04-2023 take 1 tablet by mouth at bedtime Sertraline 50 mg tablet Discontinued 50 mg PO AT BEDTIME September 10, 2022 12:00am February 04, 2023 1:08pm bipolar Start: 06-26-2021 End: 07-28-2022 take 1 tablet by mouth once daily sertraline (ZOLOFT) 50 mg tablet Indications: Anxiety with depression Take 1 tablet by mouth once daily. 90 tablet 3 04/29/2022 Active Start: 04-17-2021 End: 07-16-2021 take 1 tablet by mouth once daily sertraline (ZOLOFT) 25 mg tablet Indications: Anxiety with depression Take 1 tablet by mouth once daily. 90 tablet 1 04/17/2021 06/26/2021 Discontinued Comment on above: Take 1 tablet by rosenda th once daily. sodium bicarbonate 650 mg oral tablet (20 sources) Start: 09-10-2022 End: 06-29-2023 take 1 tablet by mouth at bedtime Sodium Bicarbonate 650 mg tablet Discontinued 650 mg PO AT BEDTIME September 10, 2022 12:00am June 29, 2023 7:51pm Start: 08-01-2021 End: 08-21-2023 take 2 tablets by mouth twice daily sodium bicarbonate 650 mg tablet Take 2 tablets by mouth twice daily. 360 tablet 3 08/01/2021 08/21/2022 Discontinued Start: 03-29-2021 End: 03-29-2022 take 1 tablet by mouth twice daily sodium bicarbonate 650 mg tablet Take 1 tablet by mouth twice daily. 180 tablet 3 03/29/2021 08/01/2021 Discontinued Comment on above: Take 1 tablet by [facility] twice daily. Take 2 tablets by mo [facility] twice daily. 125 ml sodium chloride 9 mg/ml prefilled syringe (20 sources) Start: 07-03-2021 End: 10-02-2022 sodium chloride 0.9 % (flush) 10 mL (BD POSIFLUSH) sodium phosphate,mono-dibasic (FLEET ENEMA RECTAL) (16 sources) End: 11-19-2022 sodium phosphate,mono-dibasic (FLEET ENEMA RECTAL) by RECTAL route. 0 11/19/2022 Discontinued sodium phosphate ,mono-dibasic (FLEET ENEMA RECTAL) by RECTAL route. 0 Active Comment on above: by RECTAL route. sodium polystyrene sulfonate 250 mg/ml oral suspension (20 sources) Start: 08-21-2022 End: 10-20-2022 sodium polystyrene sulfonate, with sorbitol, (SPS) 15-20 gram/60 mL susp suspension Take 15 gms once 60 mL 0 08/21/2022 10/20/2022 Discontinued Start: 07-01-2022 End: 07-01-2022 sodium polystyrene sulfonate , with sorbitol, (SPS) 15-20 gram/60 mL susp suspension Take 60 mL by mouth one time only for 1 dose. 60 mL 0 07/01/2022 07/01/2022 Comment on above: Take 60 mL by mouth one time only for 1 dose. Take 15 gms once traMADol hydrochloride 50 mg oral tablet (10 sources) Opioid Agonist Start: 06-27-19 End: 07-04-19 take 1 tablet by mouth every six hours as needed for pain traMADol (ULTRAM) 50 mg tablet Indications: Fibromyalgia Take 1 tablet by mouth every 6 hours as needed for pain for up to 7 days. 20 tablet 0 06/26/2021 07/03/2021 Comment on above: Take 1 tablet by rosenda th every 6 hours as needed for pain for up to 7 days. 1 ml triamcinolone acetonide 40 mg/ml injection (2 sources) Corticosteroid Start: 12-21-19 End: 12-21-19 triamcinolone acetonide 80 mg injection (KeNALog 40) Start: 12-21-2023 End: 12-21-2023 80 mg, Injection - FOR ORTHO USE ONLY, ONCE, 1 dose, Starting on Thu12/21/23 at 1518, Until Thu12/21/23 at 1518 Problems Active Problems Problem Classification Problem Date Documented Date Episodic/Chronic Acquired foot deformities (2 sources) Hammer toe; Translations: [Other hammer toe(s) (acquired), left foot] Chronic Anxiety disorders (18 sources) Mixed anxiety and depressive disorder; Translations: [Other specified anxiety disorders] Onset: 4 Chronic Asthma (20 sources) Unspecified asthma, uncomplicated; Translations: [Asthma, unspecified type, unspecified] Onset: 9 03-09-2008 Chronic Blindness and vision defects (3 sources) Presbyopia; Translations: [Presbyopia] Onset: 5 05-01-2023 Episodic Cataract (20 sources) Pseudophakia; Translations: [Presence of intraocular lens] Onset: 1 12-12-2010 Chronic Chronic kidney disease (20 sources) Chronic kidney disease stage 4; Translations: [Chronic kidney disease, stage 4 (severe)] Onset: 8 Resolved: 4 10-23-2017 Chronic Chronic obstructive pulmonary disease and bronchiectasis (2 sources) Acute exacerbation of chronic obstructive airways disease; Translations: [Chronic obstructive pulmonary disease with (acute) exacerbation] Onset: 5 08-10-2024 Chronic Coagulation and hemorrhagic disorders (20 sources) Hypercoagulability state; Translations: [Other primary thrombophilia] Onset: 8 04-21-2017 Chronic Complication of device; implant or graft (2 sources) Arteriovenous graft stenosis; Translations: [Stenosis of other vascular prosthetic devices, implants and grafts, initial encounter] Onset: 5 02-09-2024 Chronic Complications of surgical procedures or medical care (20 sources) Post-surgical malabsorption; Translations: [Postsurgical malabsorption, not elsewhere classified] Onset: 3 09-08-2012 Chronic Deficiency and other anemia (1 source) Anemia, unspecified; Translations: [Anemia, unspecified] 01-29-2023 Episodic Deficiency and other anemia (6 sources) Chronic anemia; Translations: [Anemia, unspecified] 02-04-2023 Episodic Diabetes mellitus with complications (20 sources) Nonproliferative retinopathy due to diabetes mellitus; Translations: [Type 2 diabetes mellitus with 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 edema, unspecified eye] Onset: 9 Resolved: 5 12-16-2018 Chronic Diabetes mellitus without complication (13 sources) Type 2 diabetes mellitus; Translations: [Type 2 diabetes mellitus without complications] Onset: 5 01-19-2023 Chronic Diabetes mellitus without complication (1 source) Diabetes mellitus without complication; Translations: [Diabetes mellitus treated with injections of non-insulin medication (HCC)] Onset: 5 Disorders of lipid metabolism (20 sources) Hyperlipidemia; Translations: [Hyperlipidemia, unspecified] Onset: 3 Chronic E Codes: Fall (10 sources) Fall; Translations: [Unspecified fall, initial encounter] 03-09-2023 Episodic E Codes: Natural/environment (1 source) Repetitive motion disorder; Translations: [Overexertion from repetitive movements, initial encounter] Episodic Esophageal disorders (20 sources) Gastroesophageal reflux disease; Translations: [Gastro-esophageal reflux disease without esophagitis] Onset: 1 07-03-2010 Chronic Essential hypertension (20 sources) Essential hypertension; Translations: [Essential (primary) hypertension] Onset: 9 Resolved: 6 03-16-2015 Chronic Fracture of lower limb (1 source) Stress fracture of left tibia; Translations: [Stress fracture, left tibia, initial encounter for fracture] 11-10-2022 Episodic Miscellaneous mental health disorders (2 sources) Chronic insomnia; Translations: [Psychophysiologic insomnia] 06-01-2024 Chronic Mood disorders (20 sources) Bipolar disorder; Translations: [Bipolar disorder, unspecified] Onset: 9 03-09-2008 Chronic Nausea and vomiting (2 sources) Diarrhea and vomiting; Translations: [Vomiting, unspecified] Episodic Nonspecific chest pain (13 sources) Chest pain; Translations: [Chest pain, unspecified] Onset: 5 10-30-2022 Episodic Nutritional deficiencies (20 sources) Vitamin D deficiency; Translations: [Vitamin D deficiency, unspecified] Onset: 1 04-19-2010 Chronic Open wounds of extremities (2 sources) Open wound of toe of right foot; Translations: [Unspecified open wound of unspecified toe(s) without damage to nail, initial encounter] 05-15-2023 Episodic Osteoarthritis (11 sources) Unilateral post-traumatic osteoarthritis, left knee; Translations: [Osteoarthrosis, localized, secondary, lower leg] Chronic Other aftercare (6 sources) Wound ; Translations: [Encounter for other specified surgical aftercare] 02-04-2023 Episodic Other aftercare (1 source) senior care (current) use of insulin; Translations: [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, with long-term current use of insulin (HCC)] Onset: 5 Episodic Other circulatory disease (2 sources) Low blood pressure; Translations: [Hypotension, unspecified] Episodic Other circulatory disease (1 source) Abnormal peripheral pulse; Translations: [Other specified symptoms and signs involving the circulatory and respiratory systems] 05-15-2023 Episodic Other connective tissue disease (1 source) Pain in left foot; Translations: [Pain in left foot] Episodic Other connective tissue disease (7 sources) Pain in right leg; Translations: [Pain in limb] 09-12-2022 Episodic Other connective tissue disease (1 source) Pain in right foot; Translations: [Pain in right foot] 03-17-2023 Episodic Other connective tissue disease (2 sources) Other symptoms and signs involving the musculoskeletal system; Translations: [Other musculoskeletal symptoms referable to limbs] Onset: 5 06-01-2024 Episodic Other connective tissue disease (1 source) Weakness of face muscles; Translations: [Facial weakness] 03-17-2024 Episodic Other connective tissue disease (1 source) Fibromyalgia; Translations: [Fibromyalgia] Onset: 5 Episodic Other diseases of kidney and ureters (5 sources) Hyperparathyroidism due to renal insufficiency; Translations: [Secondary hyperparathyroidism of renal origin] Chronic Other diseases of kidney and ureters (7 sources) Secondary hyperparathyroidism; Translations: [Secondary hyperparathyroidism of renal origin] 01-22-2023 Chronic Other diseases of kidney and ureters (3 sources) Secondary hyperparathyroidism of renal origin; Translations: [Secondary hyperparathyroidism (of renal origin)] 01-29-2023 Chronic Other fractures (16 sources) Stress fracture; Translations: [Stress fracture, unspecified site, initial encounter for fracture] 10-15-2022 Episodic Other gastrointestinal disorders (20 sources) Malabsorption - iron; Translations: [Intestinal malabsorption, unspecified] Onset: 8 05-13-2017 Chronic Other gastrointestinal disorders (1 source) Irritable bowel syndrome; Translations: [Irritable bowel syndrome without diarrhea] 08-10-2024 Chronic Other gastrointestinal disorders (1 source) Irritable bowel syndrome without diarrhea; Translations: [Irritable bowel syndrome, unspecified type] Onset: 5 Chronic Other hematologic conditions (3 sources) Blood transfusion finding; Translations: [Transfusion of blood during current hospitalization] 06-29-2023 Episodic Other hereditary and degenerative nervous system conditions (3 sources) Restless legs; Translations: [Restless legs syndrome] 07-04-2024 Chronic Other hereditary and degenerative nervous system conditions (1 source) Restless legs syndrome; Translations: [RLS (restless legs syndrome)] Onset: 5 Chronic Other injuries and conditions due to external causes (14 sources) H/O: fracture; Translations: [Personal history of (healed) traumatic fracture] 01-15-2023 Episodic Other injuries and conditions due to external causes (2 sources) Closed injury of head; Translations: [Unspecified injury of head, initial encounter] 11-08-2023 Episodic Other lower respiratory disease (19 sources) History of chronic obstructive airway disease; Translations: [Personal history of other diseases of the respiratory system] 04-28-2015 Episodic Other lower respiratory disease (19 sources) H/O: asthma; Translations: [Personal history of other diseases of the respiratory system] 04-28-2015 Episodic Other lower respiratory disease (6 sources) Nodule of lung; Translations: [Solitary pulmonary nodule] Onset: 2 Episodic Other lower respiratory disease (3 sources) Personal history of other diseases of the respiratory system; Translations: [Personal history of other diseases of respiratory system] 01-19-2023 Episodic Other lower respiratory disease (1 source) Rib pain; Translations: [Pleurodynia] 10-31-2020 Episodic Other lower respiratory disease (1 source) Imaging of lung abnormal ; Translations: [Other nonspecific abnormal finding of lung field] 07-29-2024 Episodic Other lower respiratory disease (1 source) Other nonspecific abnormal finding of lung field; Translations: [Lung nodules] Onset: 5 Episodic Other nervous system disorders (20 sources) Neuropathy; Translations: [Polyneuropathy, unspecified] Onset: 0 09-24-2009 Chronic Other nervous system disorders (18 sources) Unable to walk; Translations: [Difficulty in walking, not elsewhere classified] 09-09-2022 Chronic Other nervous system disorders (8 sources) Difficulty in walking, not elsewhere classified; Translations: [Difficulty in walking] 09-12-2022 Chronic Other nervous system disorders (1 source) Neuropathy of upper limb; Translations: [Unspecified mononeuropathy of unspecified upper limb] 11-07-2022 Chronic Other nervous system disorders (20 sources) Chronic pain; Translations: [Other chronic pain] Onset: 0 Resolved: 9 02-21-2019 Chronic Other nervous system disorders (1 source) Other chronic pain; Translations: [Other chronic pain] Onset: 5 Chronic Other nervous system disorders (1 source) Polyneuropathy, unspecified; Translations: [Neuropathy] Onset: 0 Chronic Other nervous system disorders (1 source) Other acute postprocedural pain; Translations: [Acute post-operative pain] Onset: Episodic Other nervous system disorders (1 source) Acute postoperative pain; Translations: [Other acute postprocedural pain] 10-16-2022 Episodic Other nervous system disorders (1 source) Paresthesia; Translations: [Paresthesia of skin] 04-10-2024 Episodic Other nervous system disorders (1 source) Dysarthria; Translations: [Dysarthria and anarthria] 03-17-2024 Episodic Other nervous system disorders (1 source) Numbness of hand; Translations: [Anesthesia of skin] 03-17-2024 Episodic Other non-traumatic joint disorders (1 source) Pain in elbow; Translations: [Pain in right elbow] 08-11-2022 Episodic Other non-traumatic joint disorders (1 source) Acute ankle pain; Translations: [Pain in right ankle and joints of right foot] 03-17-2023 Episodic Other nutritional; endocrine; and metabolic disorders (20 sources) Obesity; Translations: [Obesity, unspecified] Onset: 9 03-09-2008 Chronic Other nutritional; endocrine; and metabolic disorders (2 sources) Hyperphosphatemia; Translations: [Other disorders of phosphorus metabolism] Chronic Other nutritional; endocrine; and metabolic disorders (1 source) Severe obesity; Translations: [Morbid (severe) obesity due to excess calories] Chronic Other nutritional; endocrine; and metabolic disorders (1 source) Hypocalcemia; Translations: [Hypocalcemia] 09-10-2022 Chronic Other nutritional; endocrine; and metabolic disorders (1 source) Obesity, unspecified; Translations: [Obesity, unspecified] 09-12-2022 Chronic Other nutritional; endocrine; and metabolic disorders (19 sources) History of diabetes mellitus type 2; Translations: [Personal history of other endocrine, nutritional and metabolic disease] 04-28-2015 Episodic Other nutritional; endocrine; and metabolic disorders (1 source) Personal history of other endocrine, nutritional and metabolic disease; Translations: [Personal history of other endocrine, metabolic, and immunity disorders] 09-12-2022 Episodic Other nutritional; endocrine; and metabolic disorders (6 sources) H/O: diabetes mellitus; Translations: [Personal history of other endocrine, nutritional and metabolic disease] 03-09-2023 Episodic Other screening for suspected conditions (not mental disorders or infectious disease) (1 source) Plain X-ray result abnormal; Translations: [Abnormal findings on diagnostic imaging of other specified body structures] 10-20-2022 Chronic Other screening for suspected conditions (not mental disorders or infectious disease) (7 sources) Patient encounter status; Translations: [Encounter for other screening for malignant neoplasm of breast] Episodic Other skin disorders (1 source) Ingrowing nail of toe of right foot; Translations: [Ingrowing nail] 05-15-2023 Episodic Other upper respiratory infections (1 source) Viral upper respiratory tract infection; Translations: [Acute upper respiratory infection, unspecified] Episodic Residual codes; unclassified (20 sources) Obstructive sleep apnea syndrome; Translations: [Obstructive sleep apnea (adult) (pediatric)] Onset: 2 02-18-2021 Chronic Residual codes; unclassified (1 source) Awaiting transplantation; Translations: [Awaiting organ transplant status] Chronic Residual codes; unclassified (1 source) Awaiting transplantation of kidney; Translations: [Awaiting organ transplant status] Chronic Residual codes; unclassified (1 source) Sleep apnea; Translations: [Sleep apnea, unspecified] 06-01-2024 Chronic Residual codes; unclassified (1 source) Obstructive sleep apnea (adult) (pediatric); Translations: [CASSIE (obstructive sleep apnea)] Onset: Chronic Residual codes; unclassified (1 source) Procedure not done; Translations: [Procedure and treatment not carried out, unspecified reason] Episodic Residual codes; unclassified (3 sources) Sign; Translations: [Other general symptoms and signs] 06-29-2023 Episodic Residual codes; unclassified (3 sources) Insomnia; Translations: [Insomnia, unspecified] 07-04-2024 Episodic Residual codes; unclassified (1 source) Insomnia, unspecified; Translations: [Insomnia, unspecified type] Onset: 5 Episodic Screening and history of mental health and substance abuse codes (20 sources) H/O: manic depressive disorder; Translations: [Personal history of other mental and behavioral disorders] 04-28-2015 Episodic Spondylosis; intervertebral disc disorders; other back problems (4 sources) Lumbar radiculopathy; Translations: [Radiculopathy, lumbar region] 10-20-2022 Episodic Superficial injury; contusion (20 sources) Contusion of lower back; Translations: [Contusion of lower back and pelvis, initial encounter] 07-05-2019 Episodic Transient cerebral ischemia (3 sources) Transient cerebral ischemia; Translations: [Transient cerebral ischemic attack, unspecified] 03-25-2024 Chronic Unclassified (1 source) Unknown / UNK(Unknown) Onset: 8 Unclassified (1 source) Established Patient Onset: 4 Urinary tract infections (2 sources) Urinary tract infectious disease; Translations: [Urinary tract infection, site not specified] Episodic Viral infection (1 source) Viral disease; Translations: [Viral infection, unspecified] Episodic Past or Other Problems Problem Classification Problem Date Documented Da te Episodic/Chronic Adjustment disorders (20 sources) Adjustment disorder; Translations: [Adjustment disorder with other symptoms] Onset: 05-02-2011 Resolved: 04-20-2020 04-20-2020 Chronic Biliary tract disease (20 sources) Gallstone; Translations: [Calculus of gallbladder without cholecystitis without obstruction] Onset: 03-09-2008 Resolved: 04-20-2020 03-09-2008 Episodic Chronic ulcer of skin (20 sources) Ulcer of foot; Translations: [Non-pressure chronic ulcer of other part of unspecified foot with unspecified severity] Onset: 03-09-2008 Resolved: 04-16-2017 04-16-2017 Chronic Complications of surgical procedures or medical care (20 sources) Postoperative wound infection; Translations: [Infection following a procedure, other surgical site, initial encounter] Onset: 07-31-2022 Resolved: 08-07-2023 07-31-2022 Episodic Deficiency and other anemia (20 sources) Anemia; Translations: [Anemia, unspecified] Onset: 03-09-2008 03-09-2008 Episodic Deficiency and other anemia (20 sources) Iron deficiency anemia; Translations: [Iron deficiency anemia, unspecified] Onset: 09-21-2008 11-29-2008 Episodic Disorders of teeth and jaw (4 sources) Infection of tooth; Translations: [Periapical abscess without sinus] Onset: 12-11-2023 Episodic Disorders usually diagnosed in infancy, childhood, or adolescence (20 sources) Eating disorder; Translations: [Other disorders of eating] Onset: 05-02-2011 Resolved: 04-20-2020 04-20-2020 Chronic Fluid and electrolyte disorders (20 sources) Dehydration; Translations: [Dehydration] Onset: 07-03-2022 Episodic Fracture of lower limb (20 sources) Stress fracture of right tibia; Translations: [Stress fracture, right tibia, initial encounter for fracture] Onset: 06-11-2023 11-27-2022 Episodic Gastritis and duodenitis (20 sources) Acute gastritis; Translations: [Acute gastritis without bleeding] Onset: 12-16-2007 Resolved: 08-04-2022 05-13-2017 Episodic Genitourinary symptoms and ill-defined conditions (20 sources) Microalbuminuria; Translations: [Proteinuria, unspecified] Onset: 04-22-2010 04-22-2010 Episodic Immunizations and screening for infectious disease (20 sources) Blood group antibody titer - finding; Translations: [Other specified abnormal immunological findings in serum] Onset: 07-08-2021 07-08-2021 Episodic Mycoses (20 sources) Onychomycosis due to dermatophyte ; Translations: [Tinea unguium] Onset: 06-29-2008 Resolved: 04-20-2020 04-20-2020 Episodic Other connective tissue disease (20 sources) Fibromyalgia; Translations: [Fibromyalgia] Onset: 09-24-2009 09-24-2009 Episodic Other connective tissue disease (20 sources) Pain in right lower limb; Translations: [Pain in right leg] Onset: 06-11-2023 09-07-2022 Episodic Other connective tissue disease (20 sources) Pain in limb; Translations: [Pain in unspecified limb] Onset: 06-29-2008 Resolved: 02-21-2019 02-21-2019 Episodic Other connective tissue disease (20 sources) Tendinitis; Translations: [Enthesopathy, unspecified] Onset: 02-26-2010 Resolved: 04-20-2020 04-20-2020 Episodic Other connective tissue disease (1 source) Unspecified symptoms and signs involving the nervous system; Translations: [Unspecified symptoms and signs involving the nervous system] Onset: 04-18-2024 Episodic Other connective tissue disease (1 source) Facial weakness; Translations: [Facial weakness] Onset: 03-18-2024 Episodic Other gastrointestinal disorders (20 sources) History of bypass of stomach; Translations: [Bariatric surgery status] Onset: 05-13-2017 05-13-2017 Episodic Other injuries and conditions due to external causes (1 source) Encounter for examination and observation following other accident; Translations: [Encounter for examination and observation following other accident] Onset: 12-23-2023 Episodic Other lower respiratory disease (20 sources) Multiple nodules of lung; Translations: [Other nonspecific abnormal finding of lung field] Onset: 08-29-2021 Episodic Other nervous system disorders (2 sources) Anesthesia of skin; Translations: [Anesthesia of skin] Onset: 03-18-2024 Episodic Other nervous system disorders (1 source) Dysarthria and anarthria; Translations: [Dysarthria and anarthria] Onset: 03-18-2024 Episodic Other non-traumatic joint disorders (20 sources) Pain in left knee; Translations: [Pain in joint, lower leg] Onset: 11-26-2009 Resolved: 04-20-2020 Episodic Other non-traumatic joint disorders (20 sources) Elbow joint pain; Translations: [Pain in unspecified elbow] Onset: 09-24-2009 Resolved: 04-20-2020 04-20-2020 Episodic Other nutritional; endocrine; and metabolic disorders (20 sources) Obese class I; Translations: [Obesity, unspecified] Onset: 07-29-2023 Resolved: 12-25-2023 Chronic Other nutritional; endocrine; and metabolic disorders (20 sources) Obese class II; Translations: [Obesity, unspecified] Onset: 07-24-2022 Resolved: 12-25-2023 07-24-2022 Chronic Other nutritional; endocrine; and metabolic disorders (20 sources) Morbid obesity; Translations: [Morbid (severe) obesity due to excess calories] Onset: 03-11-2011 Resolved: 12-16-2018 12-16-2018 Chronic Other skin disorders (20 sources) Callosity; Translations: [Corns and callosities] Onset: 06-29-2008 Resolved: 04-16-2017 Episodic Other skin disorders (20 sources) Asteatosis cutis; Translations: [Xerosis cutis] Onset: 02-13-2011 Resolved: 04-20-2020 04-20-2020 Episodic Pathological fracture (11 sources) Pathological fracture - lower leg; Translations: [Pathological fracture, right tibia, initial encounter for fracture] Onset: 12-11-2023 01-20-2023 Episodic Phlebitis; thrombophlebitis and thromboembolism (20 sources) H/O: Deep vein thrombosis; Translations: [Personal history of other venous thrombosis and embolism] Onset: 03-04-2016 03-04-2016 Episodic Residual codes; unclassified (20 sources) Edema; Translations: [Edema, unspecified] Onset: 09-21-2008 09-21-2008 Episodic Residual codes; unclassified (20 sources) Family history of ischemic heart disease; Translations: [Family history of ischemic heart disease and other diseases of the circulatory system] Onset: 03-04-2016 03-04-2016 Episodic Residual codes; unclassified (20 sources) Generalized aches and pains; Translations: [Pain, unspecified] Onset: 10-01-2009 Resolved: 02-21-2019 02-21-2019 Episodic Sprains and strains (20 sources) Rupture of anterior cruciate ligament; Translations: [Sprain of anterior cruciate ligament of unspecified knee, initial encounter] Onset: 11-26-2009 Resolved: 04-20-2020 04-20-2020 Episodic Unclassified (1 source) Follow Up Onset: 03-19-2017 Unclassified (4 sources) Equipment error/failure; Translations: [Hardware failure] 06-04-2023 Unclassified (1 source) Patient encounter status 04-19-2024 Results Test Name Value Interpretation Reference Range Facility [facility] 09-19-2024 CNP Telephone (NEUR) ---- Margareth GONZALEZ ([id number]) 1965 F Date Time Provider Department 09/19/24 ALONDRA CHUNG [facility] During your visit today, we recorded the following information about you: Esperanza Post 09/19/2024 1:43 PM Signed SLEEPPAREQUEST A PA has been received via fax. Requested by: Joshua Callback #: Medication: Pregabalin Dosage: 25 mg Soriano: [id number] Nataly Burns LPN 09/20/2024 4:42 PM Signed Tried to complete through Cover My Meds. Did not recognized Pt. Called [employer] and did PA over the phone. PA Authorization # [id number] good for 03/02/2024 to 03/01/2025. Called Pt earlier to [employer] out of service. Did speak with EC and they will have Pt call back. Please notifie Pt PA was approved. NEHAL Groves Krystle, GRACE 09/22/2024 8:42 AM Signed Patient returns call from dialysis center phone and notified that lyrica has been approved with verbalized understanding. Patient missed last OV with [facility] as she thought it was this coming week. Will call back to schedule as she is currently at dialysis and it is not convenient. Diana Brand RN Allergies As of Date: 09/19/2024 Noted Allergy Reaction VICODIN (HYDROCODONE-ACETAM INOPHE*09/23/2007 11 - Vomiting BALSAM 115 09/23/2007 BALSAM JUAN 09/10/2022 16 - Unknown BARIUM SULFATE 05/01/2023 16 - Unknown BENADRYL ALLERGY DECONGESTANT 05/01/2023 9 - Itching BENADRYL (DIPHENHYDRAMINE HCL) 09/23/2007 2 - Rash 9 - Itching CODEINE 09/23/2007 11 - Vomiting 14 - Other: See Comments LISINOPRIL 05/26/2008 15 - Contraindication-Me dical Cornell* Comments: Acute renal failure MOLD 09/23/2007 NSAIDS (NON-STEROIDAL ANTI-INFLAM* 013 14 - Other: See Comments Comments: Unable to take nsaids after having gastric bypass. PENICILLINS 09/23/2007 10 - Anaphylaxis SEASONAL ALLERGIES 12/14/2008 14 - Other: See Comments Comments: Nose runs, sneezing... TETRACYCLINE 09/23/2007 2 - Rash VANILLA EXTRACT 09/23/2007 VANILLA EXTRACT FLAVOR 09/10/2022 16 - Unknown Date Reviewed: 09/12/2024 Reviewed by: Liz Ferreira MD - Fully Assessed Reason for Visit: Insurance Authorization [[id number]] Visit Diagnosis:Anxiety [F41.9] Prescriptions as of 09/22/2024 - torsemide (DEMADEX) 100 mg tablet Take 100 mg by mouth once daily. - albuterol HFA (PROVENTIL HFA, VENTOLIN HFA) 90 mcg/actuation inhaler Inhale 2 puffs as instructed every 4 hours as needed. - pregabalin (LYRICA) 25 mg capsule Take 2 capsules by mouth daily at bedtime for 180 days. - clopidogrel (PLAVIX) 75 mg tablet Take 1 tablet by mouth once daily. - ondansetron orally disintegrating (ZOFRAN ODT) 4 mg disintegrating tablet Take 1 tablet by mouth every 8 hours as needed for nausea/vomiting. - CPAP/BIPAP/OTHER APAP 5-20 cmH2O [facility] - Blood-Glucose Meter (ONETOUCH VERIO FLEX METER) Dispense one meter kit. E11.9 - blood sugar diagnostic (ONETOUCH VERIO TEST STRIPS) test strip Checks once per day to calibrate CGM - lancets (ONETOUCH DELICA PLUS LANCET) 33 gauge Checks once per day to calibrate CGM E11.9 - Blood-Glucose Sensor (FREESTYLE FESTUS 3 PLUS SENSOR) natty CHANGE SENSOR EVERY 15 days, USE FOR CONTINUOUS GLUCOSE MONITORING. E11.9 DIALYSIS PATIENT - Blood-Glucose Meter,Continuous (FREESTYLE FESTUS 3 READER) misc Dispense one reader kit. E11.9 DIALYSIS PATIENT - dulaglutide (TRULICITY) 0.75 mg/0.5 mL pen injector Inject 0.75 mg subcutaneously one time a week. DX: E11.40 Type 2 DM - hydrOXYzine HCl (ATARAX) 50 mg tablet Take 1 tablet by mouth every 6 hours as needed for itching/rash. - omeprazole (PRILOSEC) 20 mg capsule Take 1 capsule by mouth once daily. - calcitriol (ROCALTROL) 0.25 mcg capsule 6 pills daily 3X/week -- Per diaylsis - sevelamer carbonate (RENVELA) 800 mg tablet Two tablets by mouth with meals -- Ordered by dialysis - NIFEdipine ER (PROCARDIA XL) 30 mg 24 hr tablet Take 3 tablets by mouth every afternoon. -- per dialysis - DULoxetine (CYMBALTA) 30 mg capsule Take 1 capsule by mouth once daily. - atorvastatin (LIPITOR) 40 mg tablet Take 1 tablet by mouth daily at bedtime. For cholesterol. - acetaminophen (TYLENOL) 500 mg tablet Take 1,000 mg by mouth every 12 hours. - melatonin 5 mg tablet Take 5 mg by mouth. As needed. - cholecalciferol (VITAMIN D3) 5,000 unit tab Take 5,000 Units by mouth twice daily. - Gsjajjwu-Vi-Wsd-Fe- FA ( VITAMIN) ORAL Tab Take 1 tablet by mouth once daily. Meds Comments as of 11/28/2017: Pt states all meds were just gone over. Did not go over meds. Swathi Haddad Ma November 28, 2017 Problem List As Of Date 09/19/2024 Noted Resolved Acute gastritis [K29.00] 12/16/2007 08/04/2022 DM w/o complication type II, uncontrolled [IMO0*03/09/2008 12/07/2014 Routine gynecological examination [Z01.419] 03/09/2008 04/16/19 (more content not included)... Normal [facility] CNOVon 09-12-2024 CNOV Office Visit (PULMWS) ---- Margareth GONZALEZ ([id number]) 1965 F [place] Date Time Provider Department 09/12/24 1:30 PM LIZ FERREIRA PULMWS During your visit today, we recorded the following information about you: Pulse Respiration Blood pressure 77/minute 18/minute 102/60 Liz Ferreira MD 09/12/2024 2:25 PM Signed . Respiratory [place] Note Patient name: Margareth Gonzalez PCP: Ignacio Cheatham MD Referring Physician: Kristy Marcum CNP Recording using [employer] software for draft documentation of the visit was discussed with the patient/authorized employer relations representative; all questions welcomed and answered. Patient/authorized employer relations representative agreed to proceed CC: lung nodules HPI: Margareth Gonzalez 59 year old female former remote [id number] smoker quitting in 1989 with PMH significant for bipolar disorder, DM, GERD, DVT, fibromyalgia, HLD, CASSIE, obesity status post gastric bypass, asthma, allergies, ESRD previously seen in [address] Macias for evaluation of pulmonary nodules as a preoperative evaluation for possible kidney transplant. Now being referred back to pulmonary clinic by Kristy Marcum for new lung nodule. Review of past CT of chest shows waxing and waning nodules. She was just seen in ED at [facility] for sob and chest pain. CTA chest obtained that was negative for PE but pertinent for pulmonary edema, bilateral effusions. Review of films shows that new RUL nodule has decreased in size but she has new semisolid nodules in RUL. No history of recurrent pneumonia or bronchitis although she relates a severe episode of pneumonia approximately 15 years ago resulting in ICU stay and need for supplemental oxygen for 3 months post discharge. Chest imaging shows mosaic pattern consistent with airways disease. She has a long history of asthma since childhood. She also has a history of allergies but never required immunotherapy. In the past, she had been on inhaled corticosteroids but had problems with recurrent thrush. Currently she has been using Primatene Mist. She has some days where her shortness of breath is worse than others and not necessarily related to need for dialysis. No chronic cough, mucus production, wheezing. DME: [employer] CPAP DATA: PFT 2021: Imaging / Diagnostic Studies: DATE OF EXAM: Jul 27 2024 2:44PM [facility] 0541 - CT CHEST WO IVCON / IMPRESSION: Although many of the pulmonary nodules, including a 1 cm nodular opacity anteriorly within the right middle lobe, are stable, other pulmonary nodules have resolved interval, while new pulmonary nodules have developed. Although findings suggest waxing/waning multifocal infectious or inflammatory disease, continued interval surveillance is recommended. Regions of groundglass attenuation and air-trapping within both lungs suggests reactive airways disease. No felix lymphadenopathy is seen within the chest. Chest CT 04/2023: [facility] Imaging Services [address] [place] [id number] CTA Chest W/WO Contrast MR#: [id number] Acct: [id number] Name: Margareth GONZALEZ Rep #: [id number] : 1965 F 59 From: Frank Tabor MD PCP: Dr. Ignacio Cheatham MD Status: REG ER Study: CTA Chest W/WO Contrast Date of Exam: 09/06/24 FINDINGS: Mild anasarca. No acute osseous abnormalities. Normal caliber thoracic aorta. Mild pericardial effusion. No pulmonary artery filling defects. Moderate bilateral pleural effusions. Interlobular septal thickening. Diffuse ground-glass opacities. No acute upper abdominal abnormalities. CT/CTA Chest W/WO Contrast IMPRESSION: No pulmonary embolism. Probable pulmonary edema. Moderate bilateral pleural effusions. Mild pericardial effusion. See HPI for interpretation PAST MEDICAL HISTORY Diagnosis Date Acute gastritis without mention of hemorrhage Allergic rhinitis Anaphylaxis Anemia Asthma (HCC) Back pain Benign essential tremor Bipolar I disorder, most recent episode (or current) unspecified sectrum Bone mass Candidiasis, intertrigo Chronic kidney disease Contraceptive management Depression Diabetes ([facility]) Diarrhea DVT, lower extremity ([facility]) 08/2014 Right leg (6) Esophagitis ESRD (end stage renal disease) ([facility]) 07/03/2022 Facial fracture due to fall ([facility]) Fatigue Fibromyalgia Fracture Fracture of shaft of fibula GERD (gastroesophageal reflux disease) HLD (hyperlipidemia) on tricor Hyperlipidemia Hypertension Hypomagnesemia Hypopotassemia IBS (irritable bowel syndrome) Insomnia Intertrigo Knee pain Morbid obesity ([facility]) 03/11/2011 Myalgia Nausea Neck pain Neuropathy Nocturnal leg cramps Non-cardiac chest pain Obesity CASSIE (obstructive sleep apnea) 07/08/2011 Other polyp of sinus Other specified anemias Personal history (more content not included)... Normal [facility] CNPNon 09-07-2024 CNPN Telephone (JOSYWS) ---- Margareth GONZALEZ ([id number]) 1965 F Date Time Provider Department 09/07/24 IGNACIO CHEATHAM During your visit today, we recorded the following information about you: Georgina Salmon, RN 09/07/2024 4:19 PM Signed Patient calling to state she was taken to [facility] ER yesterday via squad due to shortness of breath. Reports her SpO2 levels were in the 80's. States oxygen was applied on her and her SpO2 levels increased over time while at ER. Reports ER told her she had no clot, labs were okay and that she had fluid on her lungs. She was discharged without oxygen and told to follow up with Pulmonary which she has appt with on 09/12. During call, pt speaking in phrases. States she was still experiencing shortness of breath on room air, and her SpO2 levels today have been in the 80's. Reports chest pressure, like a weight that radiates into her back. Reports nausea and states I feel miserable. Lives alone. Denies feeling faint, lightheadedness, dizziness, and has no headache. Reports she has not been up much today, has been resting. Reports at dialysis yesterday the nurse told her that her lungs sounded diminished when auscultated. States all she wants to do is sleep. This nurse advised ER now. Pt agreeable and declined needing further assistance or needing emergency services contacted by this nurse. Pt stated she planned to inform her sister as soon as this call ended. GRACE Lemus William J, MD 09/07/2024 4:36 PM Signed agree Allergies As of Date: 09/07/2024 Noted Allergy Reaction VICODIN (HYDROCODONE-ACETAM INOPHE*09/23/2007 11 - Vomiting BALSAM 115 09/23/2007 BALSAM JUAN 09/10/2022 16 - Unknown BARIUM SULFATE 05/01/2023 16 - Unknown BENADRYL ALLERGY DECONGESTANT 05/01/2023 9 - Itching BENADRYL (DIPHENHYDRAMINE HCL) 09/23/2007 2 - Rash 9 - Itching CODEINE 09/23/2007 11 - Vomiting 14 - Other: See Comments LISINOPRIL 05/26/2008 15 - Contraindication-Me dical Cornell* Comments: Acute renal failure MOLD 09/23/2007 NSAIDS (NON-STEROIDAL ANTI-INFLAM* 013 14 - Other: See Comments Comments: Unable to take nsaids after having gastric bypass. PENICILLINS 09/23/2007 10 - Anaphylaxis SEASONAL ALLERGIES 12/14/2008 14 - Other: See Comments Comments: Nose runs, sneezing... TETRACYCLINE 09/23/2007 2 - Rash VANILLA EXTRACT 09/23/2007 VANILLA EXTRACT FLAVOR 09/10/2022 16 - Unknown Date Reviewed: 08/26/2024 Reviewed by: Laura Levin, GRACE - Fully Assessed Reason for Visit: Breathing Problem [17] Prescriptions as of 09/07/2024 - clopidogrel (PLAVIX) 75 mg tablet Take 1 tablet by mouth once daily. - ondansetron orally disintegrating (ZOFRAN ODT) 4 mg disintegrating tablet Take 1 tablet by mouth every 8 hours as needed for nausea/vomiting. - CPAP/BIPAP/OTHER APAP 5-20 cmH2O [facility] - Blood-Glucose Meter (ONETOUCH VERIO FLEX METER) Dispense one meter kit. E11.9 - blood sugar diagnostic (ONETOUCH VERIO TEST STRIPS) test strip Checks once per day to calibrate CGM - lancets (ONETOUCH DELICA PLUS LANCET) 33 gauge Checks once per day to calibrate CGM E11.9 - Blood-Glucose Sensor (FREESTYLE FESTUS 3 PLUS SENSOR) natty CHANGE SENSOR EVERY 15 days, USE FOR CONTINUOUS GLUCOSE MONITORING. E11.9 DIALYSIS PATIENT - Blood-Glucose Meter,Continuous (FREESTYLE FESTUS 3 READER) misc Dispense one reader kit. E11.9 DIALYSIS PATIENT - dulaglutide (TRULICITY) 0.75 mg/0.5 mL pen injector Inject 0.75 mg subcutaneously one time a week. DX: E11.40 Type 2 DM - pregabalin (LYRICA) 25 mg capsule Take 1 capsule by mouth daily at bedtime for 90 days. - hydrOXYzine HCl (ATARAX) 50 mg tablet Take 1 tablet by mouth every 6 hours as needed for itching/rash. - omeprazole (PRILOSEC) 20 mg capsule Take 1 capsule by mouth once daily. - calcitriol (ROCALTROL) 0.25 mcg capsule 6 pills daily 3X/week -- Per diaylsis - sevelamer carbonate (RENVELA) 800 mg tablet Two tablets by mouth with meals -- Ordered by dialysis - NIFEdipine ER (PROCARDIA XL) 30 mg 24 hr tablet Take 3 tablets by mouth every afternoon. -- per dialysis - DULoxetine (CYMBALTA) 30 mg capsule Take 1 capsule by mouth once daily. - atorvastatin (LIPITOR) 40 mg tablet Take 1 tablet by mouth daily at bedtime. For cholesterol. - acetaminophen (TYLENOL) 500 mg tablet Take 1,000 mg by mouth every 12 hours. - melatonin 5 mg tablet Take 5 mg by mouth. As needed. - cholecalciferol (VITAMIN D3) 5,000 unit tab Take 5,000 Units by mouth twice daily. - Cumpmcom-He-Gws-Fe- FA ( VITAMIN) ORAL Tab Take 1 tablet by mouth once daily. Meds Comments as of 11/28/2017: Pt states all meds were just gone over. Did not go over meds. Swathi Haddad Ma November 28, 2017 Problem List As Of Date 09/07/2024 Noted Resolved Acute gastritis [K29.00] 12/16/2007 08/04/2022 DM w/o complication type II, u (more content not included)... Normal [facility] 12 Lead EKGon 09-06-2024 12 Lead EKG [facility] Cardiovascular Services [address] [place] [address] 12 Lead EKG 09/06/24 1838 MR#: [id number] Acct: [id number] Name: Margareth GONZALEZ Rep #: [id number] : 1965 59 From: Josef Funk MD Attending Dr: Status: DEP ER Ordering Dr: Johnathon Robertson MD Date: 09/06/24 Location: ED Sex: F C Admitted: Test Reason : CP Blood Pressure : */* mmHG Vent. Rate : 114 BPM Atrial Rate : 114 BPM P-R Int : 142 ms QRS Dur : 80 ms QT Int : 340 ms P-R-T Axes : 62 52 113 degrees QTcB Int : 468 ms Sinus tachycardia Possible Left atrial enlargement Nonspecific ST and T wave abnormality Abnormal ECG Confirmed by JOSEF FUNK MD ([id number]), rewrite editor LINDA PICKETT ([id number]) on 09/08/2024 6:36:44 AM Referred By: Confirmed By: JOSEF FUNK MD 09/08/24 0636 Date Josef Funk MD CC: Dr. Johnathon Robertson MD; Dr. Ignacio Cheatham MD Signed Normal [facility] Absolute lymphocyte countOrd ered By: Johnathon Robertson on 09-06-2024 Lymphocytes Auto (Unsp spec) [#/Vol] 0.80 10*3/uL Low 0.83-4.51 [facility] Absolute neutrophil countOrd ered By: Johnathon Robertson on 09-06-2024 Neutrophils (Bld) [#/Vol] 3.0 10*3/uL 2.0-7.7 [facility] Anion gap in Serum or Plasma Ordered By: Johnathon Robertson on 09-06-2024 Anion gap [Moles/Vol] 14 mmol/L 5-15 [facility] Automated lymphocyte count a s percentage of total leukocytesOrdered By: Johnathon Robertson on 09-06-2024 Lymphocytes/100 WBC Auto (Unsp spec) 18.7 % Low 19-41 [facility] BUN/creatinine ratioOrdered By: Johnathon Robertson on 09-06-2024 Urea nitrogen/Creatinine [Mass ratio] 4.2 mg/mg Low 10-20 [facility] Basic Metabolic Profile (BMP )on 09-06-2024 BUN/CRE 4.2 RATIO Low 10-20 [facility] Comment on above: Performed By: #### L 500.2500, L501.4021, L100.0100 ####[facility] [address] [place], [address] Calcium [Mass/Vol] 8.8 mg/dL Normal 7.6-11.0 [facility] Comment on above: Performed By: #### L 500.2500, L501.4021, L100.0100 ####[facility] [address] [place], [address] Chloride [Moles/Vol] 93 mmol/L Low 98-108 [facility] Comment on above: Performed By: #### L 500.2500, L501.4021, L100.0100 ####[facility] [address] [place], [address] CO2 [Moles/Vol] 26.5 mmol/L Normal 21.0-32.0 [facility] Comment on above: Performed By: #### L 500.2500, L501.4021, L100.0100 ####[facility] [address] [place], [address] Creatinine [Mass/Vol] 4.01 mg/dL High 0.70-1.20 [facility] Comment on above: Performed By: #### L 500.2500, L501.4021, L100.0100 ####[facility] [address] [place], [address] ECRCL 17.48 ml/min Low 50-250 [facility] Comment on above: Performed By: #### L 500.2500, L501.4021, L100.0100 ####[facility] [address] [place], [address] GAP 14 Normal 5-15 [facility] Comment on above: Performed By: #### L 500.2500, L501.4021, L100.0100 ####[facility] [address] [place], [address] GFR/1.73 sq M.predicted among non-blacks MDRD (S/P/Bld) [Vol rate/Area] 12 mL/min/{1.73_m2} Low >60 [facility] Comment on above: Result Comment: mL/m in/1.73m2 CKD-EPI Creatinine Equation (2020) Performed By: #### L 500.2500, L501.4021, L100.0100 ####[facility] [address] [place], [address] Glucose [Mass/Vol] 174 mg/dL High 70-99 [facility] Comment on above: Performed By: #### L 500.2500, L501.4021, L100.0100 ####[facility] [address] [place], [address] Potassium [Moles/Vol] 4.8 mmol/L Normal 3.3-5.1 [facility] Comment on above: Result Comment: Hemo lysis present, Results??could be affected. ?? Performed By: #### L 500.2500, L501.4021, L100.0100 ####[facility] [address] [place], [address] Sodium [Moles/Vol] 133 mmol/L Normal 133-145 [facility] Comment on above: Performed By: #### L 500.2500, L501.4021, L100.0100 ####[facility] [address] [place], [address] Urea nitrogen [Mass/Vol] 17 mg/dL Normal 4-19 [facility] Comment on above: Performed By: #### L 500.2500, L501.4021, L100.0100 ####[facility] [address] [place], [address] Basophil percentageOrdered B y: Johnathon Robertson on 09-06-2024 Basophils/100 WBC (Bld) 0.7 % 0-1 [facility] CBC W/Diff, Automatedon -2024 Absolute Lymph 0.80 X10 3/uL Low 0.83-4.51 [facility] Comment on above: Performed By: #### L 500.2500, L501.4021, L100.0100 ####[facility] [address] [place], [address] Absolute Neut 3.0 X10 3/uL Normal 2.0-7.7 [facility] Comment on above: Performed By: #### L 500.2500, L501.4021, L100.0100 ####[facility] [address] [place], [address] Basophils/100 WBC (Bld) 0.7 % Normal 0-1 [facility] Comment on above: Performed By: #### L 500.2500, L501.4021, L100.0100 ####[facility] [address] [place], [address] Eosinophils/100 WBC (Bld) 3.7 % Normal 0-5 [facility] Comment on above: Performed By: #### L 500.2500, L501.4021, L100.0100 ####[facility] [address] [place], [address] Erythrocyte distribution width (RBC) [Ratio] 14.3 % Normal 11.6-14.6 [facility] Comment on above: Performed By: #### L 500.2500, L501.4021, L100.0100 ####[facility] [address] [place], [address] Hematocrit (Bld) [Volume fraction] 33.9 % Low 37-47 [facility] Comment on above: Performed By: #### L 500.2500, L501.4021, L100.0100 ####[facility] [address] [place], [address] Hemoglobin (Bld) [Mass/Vol] 11.0 g/dL Low 12.0-15.0 [facility] Comment on above: Performed By: #### L 500.2500, L501.4021, L100.0100 ####[facility] [address] [place], [address] IG% 0.200 Normal 0.0-0.9 [facility] Comment on above: Result Comment: IG% - Immature Granulocytes (promyelocytes, myelocytes and metamyelocytes) > 1% indicates that a LEFT SHIFT is Present. Performed By: #### L 500.2500, L501.4021, L100.0100 ####[facility] [address] [place], [address] Lymphocytes/100 WBC (Bld) 18.7 % Low 19-41 [facility] Comment on above: Performed By: #### L 500.2500, L501.4021, L100.0100 ####[facility] [address] [place], [address] MCH (RBC) [Entitic mass] 31.2 pg Normal 27.0-32.0 [facility] Comment on above: Performed By: #### L 500.2500, L501.4021, L100.0100 ####[facility] [address] [place], [address] MCHC (RBC) [Mass/Vol] 32.4 g/dL Normal 32-36 [facility] Comment on above: Performed By: #### L 500.2500, L501.4021, L100.0100 ####[facility] [address] [place], [address] MCV (RBC) [Entitic vol] 96.0 fL Normal 81-99 [facility] Comment on above: Performed By: #### L 500.2500, L501.4021, L100.0100 ####[facility] [address] [place], [address] Monocytes/100 WBC (Bld) 7.5 % Normal 0-10 [facility] Comment on above: Performed By: #### L 500.2500, L501.4021, L100.0100 ####[facility] [address] [place], [address] Neutrophils/100 WBC (Bld) 69.2 % Normal 47-70 [facility] Comment on above: Performed By: #### L 500.2500, L501.4021, L100.0100 ####[facility] [address] [place], [address] Nucleated RBC (Bld) [#/Vol] 0 10*3/uL Normal 0-5 [facility] Comment on above: Performed By: #### L 500.2500, L501.4021, L100.0100 ####[facility] [address] [place], [address] Platelet mean volume (Bld) [Entitic vol] 10.4 fL Normal 6.2-12.0 [facility] Comment on above: Performed By: #### L 500.2500, L501.4021, L100.0100 ####[facility] [address] [place], [address] Platelets (Bld) [#/Vol] 176 10*3/uL Normal 150-450 [facility] Comment on above: Performed By: #### L 500.2500, L501.4021, L100.0100 ####[facility] [address] [place], [address] RBC (Bld) [#/Vol] 3.53 10*6/uL Low 4.2-5.4 [facility] Comment on above: Performed By: #### L 500.2500, L501.4021, L100.0100 ####[facility] [address] [place], [address] RDW SD 49.5 fl High 35.1-43.9 [facility] Comment on above: Performed By: #### L 500.2500, L501.4021, L100.0100 ####[facility] [address] [place], [address] WBC (Bld) [#/Vol] 4.3 10*3/uL Low 4.4-11.0 [facility] Comment on above: Performed By: #### L 500.2500, L501.4021, L100.0100 ####[facility] [address] [place], [address] Kesha 09-06-2024 BO Telephone (ANDREA) ---- Margareth GONZALEZ ([id number]) 1965 F Date Time Provider Department 09/06/24 IGNACIO CHEATHAM During your visit today, we recorded the following information about you: Triny Butterfield, RN 09/06/2024 5:58 PM Signed patient called in stating that she had Shortness of Breath and chest pain since Thursday and s/s seem to be getting worse. Patient was wanting an appt, but has been referred to the ER for evaluation due to s/s. patient agreed and verbalized understanding. Allergies As of Date: 09/06/2024 Noted Allergy Reaction VICODIN (HYDROCODONE-ACETAM INOPHE*09/23/2007 11 - Vomiting BALSAM 115 09/23/2007 BALSAM JUAN 09/10/2022 16 - Unknown BARIUM SULFATE 05/01/2023 16 - Unknown BENADRYL ALLERGY DECONGESTANT 05/01/2023 9 - Itching BENADRYL (DIPHENHYDRAMINE HCL) 09/23/2007 2 - Rash 9 - Itching CODEINE 09/23/2007 11 - Vomiting 14 - Other: See Comments LISINOPRIL 05/26/2008 15 - Contraindication-Me dical [facility]* Comments: Acute renal failure MOLD 09/23/2007 NSAIDS (NON-STEROIDAL ANTI-INFLAM* 013 14 - Other: See Comments Comments: Unable to take nsaids after having gastric bypass. PENICILLINS 09/23/2007 10 - Anaphylaxis SEASONAL ALLERGIES 12/14/2008 14 - Other: See Comments Comments: Nose runs, sneezing... TETRACYCLINE 09/23/2007 2 - Rash VANILLA EXTRACT 09/23/2007 VANILLA EXTRACT FLAVOR 09/10/2022 16 - Unknown Date Reviewed: 08/26/2024 Reviewed by: Laura Levin, GRACE - Fully Assessed Reason for Visit: FYI-No Action Needed [265] Prescriptions as of 09/06/2024 - clopidogrel (PLAVIX) 75 mg tablet Take 1 tablet by mouth once daily. - ondansetron orally disintegrating (ZOFRAN ODT) 4 mg disintegrating tablet Take 1 tablet by mouth every 8 hours as needed for nausea/vomiting. - CPAP/BIPAP/OTHER APAP 5-20 cmH2O [facility] - Blood-Glucose Meter (ONETOUCH VERIO FLEX METER) Dispense one meter kit. E11.9 - blood sugar diagnostic (ONETOUCH VERIO TEST STRIPS) test strip Checks once per day to calibrate CGM - lancets (ONETOUCH DELICA PLUS LANCET) 33 gauge Checks once per day to calibrate CGM E11.9 - Blood-Glucose Sensor (FREESTYLE FESTUS 3 PLUS SENSOR) natty CHANGE SENSOR EVERY 15 days, USE FOR CONTINUOUS GLUCOSE MONITORING. E11.9 DIALYSIS PATIENT - Blood-Glucose Meter,Continuous (FREESTYLE FESTUS 3 READER) [facility] [place]pense one reader kit. E11.9 DIALYSIS PATIENT - dulaglutide (TRULICITY) 0.75 mg/0.5 mL pen injector Inject 0.75 mg subcutaneously one time a week. DX: E11.40 Type 2 DM - pregabalin (LYRICA) 25 mg capsule Take 1 capsule by mouth daily at bedtime for 90 days. - hydrOXYzine HCl (ATARAX) 50 mg tablet Take 1 tablet by mouth every 6 hours as needed for itching/rash. - omeprazole (PRILOSEC) 20 mg capsule Take 1 capsule by mouth once daily. - calcitriol (ROCALTROL) 0.25 mcg capsule 6 pills daily 3X/week -- Per diaylsis - sevelamer carbonate (RENVELA) 800 mg tablet Two tablets by mouth with meals -- Ordered by dialysis - NIFEdipine ER (PROCARDIA XL) 30 mg 24 hr tablet Take 3 tablets by mouth every afternoon. -- per dialysis - DULoxetine (CYMBALTA) 30 mg capsule Take 1 capsule by mouth once daily. - atorvastatin (LIPITOR) 40 mg tablet Take 1 tablet by mouth daily at bedtime. For cholesterol. - acetaminophen (TYLENOL) 500 mg tablet Take 1,000 mg by mouth every 12 hours. - melatonin 5 mg tablet Take 5 mg by mouth. As needed. - cholecalciferol (VITAMIN D3) 5,000 unit tab Take 5,000 Units by mouth twice daily. - Ncgkeknz-Ou-Cmn-Fe- FA ( VITAMIN) ORAL Tab Take 1 tablet by mouth once daily. Meds Comments as of 11/28/2017: Pt states all meds were just gone over. Did not go over meds. Swathi Haddad Ma November 28, 2017 Problem List As Of Date 09/06/2024 Noted Resolved Acute gastritis [K29.00] 12/16/2007 08/04/2022 DM w/o complication type II, uncontrolled [IMO0*03/09/2008 12/07/2014 Routine gynecological examination [Z01.419] 03/09/2008 04/16/2017 Class: Chronic OBESITY NOS [E66.9] 03/09/2008 Acute anemia [D64.9] 03/09/2008 Background diabetic retinopathy (HCC) [E11.3299] 9 Asthma [J45.909] 03/09/2008 DIABETIC FOOT ULCER [L97.509] 03/09/2008 04/16/2017 CHOLELITHIASIS NOS [K80.20] 03/09/2008 Bipolar disorder, unspecified (HCC) [F31.9] 03/09/2008 Essential hypertension, benign [I10] 03/27/2008 03/16/2015 Primary hypertension [I10] Type 2 diabetes mellitus with stage 4 chronic k* Pain in limb [M79.609] 06/29/2008 02/21/2019 Dermatophytosis of nail [B35.1] 06/29/2008 04/20/2020 Corns and callosities [L84] 06/29/2008 04/16/2017 Unspecified Iron Deficiency Anemia [D50.9] 09/21/2008 EDEMA [R60.9] 09/21/2008 Ulcer of heel and midfoot (HCC) [L97.409] 02/08/2009 04/16/2017 Chronic pain [G89.29] 09/24/2009 02/21/2019 Fibromyalgia [M79.7] 09/24/2009 Neuropathy [G62.9] 09/24/2009 Elbow joint pain [ (more content not included)... Normal [facility] CTA Chest W/WO Contraston CTA Chest W/WO Contrast [facility] Imaging Services [address] [place] [address] CTA Chest W/WO Contrast MR#: [id number] Acct: [id number] Name: Margareth GONZALEZ Rep #: [id number] : 1965 F 59 From: Frank Tabor MD PCP: Dr. Ignacio Cheatham MD Status: [facility] ER Study: CTA Chest W/WO Contrast Date of Exam: 09/06/24 Exam# [id number] Ordering Dr: Johnathon Robertson MD PROCEDURE: CTA CHEST W/WO CONTRAST 09/06/2024 REASON FOR EXAM: CP AND ELEVATED D-DIMER TECHNIQUE: CTA CHEST W/WO CONTRAST Multiplanar Sagittal and Coronal images were obtained. CONTRAST: Isovue 370 VOLUME: 84 mL One or more dose reduction techniques were used (e.g., Automated exposure control, adjustment of the mA and/or kV according to patient size, use of iterative reconstruction technique). RADIATION DOSE SUMMARY: CTDlvol: 16.62+ 14.10 mGy DLP: 479.34 mGycm COMPARISON: None. FINDINGS: Mild anasarca. No acute osseous abnormalities. Normal caliber thoracic aorta. Mild pericardial effusion. No pulmonary artery filling defects. Moderate bilateral pleural effusions. Interlobular septal thickening. Diffuse ground-glass opacities. No acute upper abdominal abnormalities. CT/CTA Chest W/WO Contrast IMPRESSION: No pulmonary embolism. Probable pulmonary edema. Moderate bilateral pleural effusions. Mild pericardial effusion. Reading Location: [id number] CC: Dr. Johnathon Robertson MD; Dr. Ignacio Cheatham MD Allergist/Md: Signed Normal [facility] Carbon dioxide, total [Moles /volume] in Central venous bloodOrdered By: Johnathon Robertson on 09-06-2024 CO2 [Moles/Vol] 26.5 mmol/L 21.0-32.0 [facility] Chest 1 View (Portable)on Chest 1 View (Portable) [facility] Imaging Services [address] [place] [address] Chest 1 View (Portable) MR#: [id number] Acct: [id number] Name: Margareth GONZALEZ Rep #: [id number] : 1965 F 59 From: Frank Tabor MD PCP: Dr. Ignacio Cheatham MD Status: [facility] ER Study: Chest 1 View (Portable) Date of Exam: 09/06/24 Exam# [id number] Ordering Dr: Johnathon Robertson MD PROCEDURE: CHEST 1 VIEW (PORTABLE) 09/06/2024 REASON FOR EXAM: CHEST PAIN TECHNIQUE: Frontal view of the chest. COMPARISON: 04/02/2024. FINDINGS: The heart is normal in size. Left basilar and midlung and right basilar opacities which may represent asymmetric edema or infection. No visualized pleural effusion. No acute osseous abnormalities. RAD/Chest 1 View (Portable) IMPRESSION: Pulmonary findings as above. Reading Location: [id number] CC: Dr. Johnathon Robertson MD; Dr. Ignacio Cheatham MD Allergist/Md: Signed Normal [facility] Chloride assayOrdered By: Tyree Robertson on 09-06-2024 Chloride [Moles/Vol] 93 mmol/L Low 98-108 [facility] D-Dimer Quantitative (DVT/PE )on 09-06-2024 D-DIMER QUANT 1.90 FEU/ug/m Invalid Interpretation Code 0.27-0.49 [facility] Comment on above: Result Comment: D-Di britt ELEVATED (>0.49): Additional studies and clinical assessments are indicated to conclude diagnosis of: Deep Vein Thrombosis (DVT) or Pulmonary Embolism (PE) CRITICAL VALUE CALLED TO BONY BOYD 09/06/241952 Laine Leblanc. RESULTS READ BACK BY SAME. Performed By: #### L 300.8000 #### [facility] Laboratory [address] [place], [address] Emergency Department Summary on 09-06-2024 Emergency Department Summary [facility] Medical Records Department [address] [place] [address] Emergency Department Summary 09/06/24 MR#: [id number] Acct: [id number] Name: Margareth GONZALEZ Rep #: [id number] : 1965 59 From: Johnathon Robertson MD PCP: Dr. Ignacio Cheatham MD Status:REG ER Location: ED HPI History of Present Illness Chief Complaint: Chest Pain Detail of Chief Complaint: Shortness of breath. Informant: patient Onset/Context/Timin g Onset: Days (Started on Thursday. Better yesterday until last evening.) Activity at onset: gradual Timing: Intermittent Quality: Positive for Aching Location: Substernal Current Severity: Mild Maximum Severity: Mild Worsened By: Nothing Relieved By: Nothing Associated Symptoms: Positive for Dyspnea; Negative for Nausea, Vomiting, Diaphoresis, Cough, Fever, Lightheadedness, Acid Reflux or Palpitations Narrative Narrative: 59-year-old female history of end-stage renal disease dialysis been dialysis for 2 years. Also history of diabetes, COPD, DVT, bipolar and hypertension. She is on Plavix and aspirin from recent left fistulogram. Patient is on Thursday she started having shortness of breath associated chest pain across her chest. She said it was better yesterday and again started last night. She says worse at night. Not associated with exertion. No cardiac history. No prior cardiac cath. She has had a prior DVT but no PE. Denies any pleuritic pain or hemoptysis. Prior Similar Symptoms: Yes Recent Illness/Hospitaliza tion: Yes CVD Risk Factors: Positive for Hypertension and Diabetes PE Risk Factors: Positive for Recent Travel/Surgery and Prior DVT or PE; Negative for Cancer or OCP + Smoking + >/=35 TAD Risk Factors: Negative for Marfan's Syndrome [facility] Medical History Fracture of fibula, right, closed Anemia Hyperkalemia Osteoarthritis of right knee Pathological fracture, right tibia, initial encounter for fracture Diabetes Dialysis patient Kidney disease GERD (gastroesophageal reflux disease) Sleep apnea Former smoker Asthma DVT (deep venous thrombosis) ESRD (end stage renal disease) on dialysis Fracture of right lower extremity Inability to walk Diabetes mellitus, type 2 Obesity Chronic anemia COPD with asthma Bipolar disorder Anxiety and depression HLD (hyperlipidemia) HTN (hypertension) Former tobacco use Neuropathy Fibromyalgia Kidney disease, chronic, stage IV (GFR 15-29 ml/min) History of tobacco use History of diabetes mellitus, type II History of COPD History of bipolar disorder Benign essential hypertension History of asthma Home Medications ???Medication ???Instructions ???Recorded ???Last Taken ???Type cholecalciferol (vitamin D3) 25 5,000 unit PO DAILY SUPPLEMENT 06/1301/18/23 History mcg (1,000 unit) capsule (Vitamin D3) omeprazole 20 mg capsule,delayed 20 mg PO DAILY 08/23/14 03/16/24 H istory release glipizide 5 mg tablet 10 mg PO DAILY DIABETES 04/28/15 1 03/20/22 History melatonin 5 mg capsule 10 mg PO QHS sleep 05/27/16 History atorvastatin 40 mg tablet 40 mg PO QHS CHOLESTEROL 09/10/22 01/18/23 History dulaglutide 1.5 mg/0.5 mL 1.5 mg subcut CORNELL DIABETES 09/10/22 01/18/23 History subcutaneous pen injector (Trulicity) sevelamer carbonate 800 mg tablet 1,600 mg PO TID 02/04/23 Unknown History aspirin 81 mg capsule 81 mg PO DAILY 06/29/23 Unknown Hi story hydroxyzine HCl 50 mg tablet 50 mg PO Q6H PRN itching 06/29/23 Unknown History acetaminophen 325 mg capsule 650 mg PO Q6H PRN pain 07/02/23 Un known History (Tylenol) ondansetron HCl 4 mg tablet 4 mg PO Q8H PRN PRN nausea and 04/25 Unknown History vomiting oxycodone-acetamino phen 5 mg-325 1 tab PO Q6H PRN PRN Pain 3 days 0 07/24/23 Unknown Rx mg tablet #12 TABLETS clopidogrel 75 mg tablet 75 mg PO DAILY 09/06/24 Unknown Hi story dulaglutide 0.75 mg/0.5 mL 0.75 mg subcut QWEEK 09/06/24 Unkn own History subcutaneous pen injector (Trulicity) duloxetine 30 mg capsule,delayed 30 mg PO DAILY 09/06/24 Unknown Hi story release nifedipine 90 mg tablet,extended mg PO 09/06/24 Unknown History release pregabalin 25 mg capsule 25 mg PO QHS 09/06/24 Unknown Hist ory Allergy/AdvReac Type Severity Reaction Status Date / Time new [place] Allergy Unknown UNKNOWN Verified 09/06/24 18:45 mold Allergy Unknown unknown Verified 09/06/24 18:45 lisinopril Allergy unknown Verified 09/06/24 18:45 Penicillins Allergy Anaphylaxis Verified 09/06/24 18:45 tetracycline (Tetracycline) Allergy Anaphylaxis Verified 09/06/24 18:45 codeine AdvReac Abd Verified 09/06/24 18:45 cramps/diarrhea diphenhydramine HCl (From AdvReac Upset Verified 09/06/24 18:45 Benadryl) Stomach hydrocodone bi (more content not included)... Normal [facility] Eosinophil percentageOrdered By: Johnathon Robertson on 09-06-2024 Eosinophils/100 WBC (Bld) 3.7 % 0-5 [facility] Erythrocyte distribution wid th ratioOrdered By: Johnathon Robertson on 09-06-2024 Erythrocyte distribution width (RBC) [Ratio] 14.3 % 11.6-14.6 [facility] Erythrocyte distribution wid th standard deviationOrdered By: Johnathon Robertson on 09-06-2024 Erythrocyte distribution width (RBC) [Ratio] 49.5 fl High 35.1-43.9 [facility] Glomerular filtration rate ( GFR) estimation/1.73 sq m using serum, plasma, or whole bOrdered By: Johnathon Robertson on 09-06-2024 GFR/1.73 sq M.predicted among non-blacks MDRD (S/P/Bld) [Vol rate/Area] 12 mL/min/{1.73_m2} Low >60 [facility] Comment on above: mL/min/1.73m2 CKD-EP I Creatinine Equation (2020) Hematocrit Auto (Bld) [Volum e fraction]Ordered By: Johnathon Robertson on 09-06-2024 Hematocrit (Bld) [Volume fraction] 33.9 % Low 37-47 [facility] Hemoglobin measurementOrdere d By: Johnathon Robertson on 09-06-2024 Hemoglobin (Bld) [Mass/Vol] 11.0 g/dL Low 12.0-15.0 [facility] Immature granulocytes/100 WB C Auto (Bld)Ordered By: Johnathon Robertson on 09-06-2024 Immature granulocytes/100 WBC (Bld) 0.200 % 0.0-0.9 [facility] Comment on above: IG% - Immature Granu locytes (promyelocytes, myelocytes and metamyelocytes) > 1% indicates that a LEFT SHIFT is Present. L499.0042on 09-06-2024 Trop T High Sen 90 ng/L Invalid Interpretation Code <=14 [facility] Comment on above: Result Comment: Crit ical Result(s) Called MELISSA at: 2156 by: NIECY??Results read back by same. Performed By: #### L 499.0042 ####[facility] [address] [place], [place], [address] L499.0043on 09-06-2024 Trop T High Sen Normal <=14 [facility] Comment on above: Result Comment: PT D ISCHARGED Performed By: #### L 499.0043 #### [facility] [address] [facility]. [place], [place], [address] L501.4021on 09-06-2024 Trop T High Sen 89 ng/L Invalid Interpretation Code <=14 [facility] Comment on above: Result Comment: Crit ical Result(s) Called NAKIA at: 1940 by: NIECY??Results read back by same. Performed By: #### L 500.2500, L501.4021, L100.0100 ####[facility] [address] [place], [address] MCV (mean corpuscular volume ) determinationOrdered By: Johnathon Robertson on 09-06-2024 MCV (RBC) [Entitic vol] 96.0 fL 81-99 [facility] Mean corpuscular hemoglobin (MCH) determinationOrdered By: Johnathon Robertson on 09-06-2024 MCH (RBC) [Entitic mass] 31.2 pg 27.0-32.0 [facility] Mean corpuscular hemoglobin concentration (MCHC) determinationOrdered By: Johnathon Robertson on 09-06-2024 MCHC (RBC) [Mass/Vol] 32.4 g/dL 32-36 [facility] Mean platelet volume determi nationOrdered By: Johnathon Robertson on 09-06-2024 Platelet mean volume (Bld) [Entitic vol] 10.4 fL 6.2-12.0 [facility] Monocyte percentageOrdered B y: Johnathon Robertson on 09-06-2024 Monocytes/100 WBC (Bld) 7.5 % 0-10 [facility] Neutrophil percentageOrdered By: Johnathon Robertson on 09-06-2024 Neutrophils/100 WBC (Bld) 69.2 % 47-70 [facility] Nucleated red blood cell per centageOrdered By: Johnathon Robertson on 09-06-2024 Nucleated RBC/100 WBC (Bld) [Ratio] 0 % 0-5 [facility] Platelet countOrdered By: Tyree Robertson on 09-06-2024 Platelets (Bld) [#/Vol] 176 10*3/uL 150-450 [facility] Potassium measurement (mass/ volume)Ordered By: Johnathon Robertson on 09-06-2024 Potassium (Unsp spec) [Mass/Vol] 4.8 mmol/L 3.3-5.1 [facility] Comment on above: Hemolysis present, R esults could be affected. RBC Auto (Bld) [#/Vol]Ordere d By: Johnathon Robertson on 09-06-2024 RBC (Bld) [#/Vol] 3.53 10*6/uL Low 4.2-5.4 [facility] Serum creatinine measurement (mass/volume)Ordered By: Johnathon Robertson on 09-06-2024 Creatinine [Mass/Vol] 4.01 mg/dL High 0.70-1.20 [facility] Serum glucose measurement (m ass/volume)Ordered By: Johnathon Robertson on 09-06-2024 Glucose [Mass/Vol] 174 mg/dL High 70-99 [facility] Serum or plasma calcium joya urement (mass/volume)Ordered By: Johnathon Robertson on 09-06-2024 Calcium [Mass/Vol] 8.8 mg/dL 7.6-11.0 [facility] Serum or plasma urea nitroge n measurement (mass/volume)Ordered By: Johnathon Robertson on 09-06-2024 Urea nitrogen [Mass/Vol] 17 mg/dL 4-19 [facility] Sodium levelOrdered By: Johnathon Robertson on 09-06-2024 Sodium [Moles/Vol] 133 mmol/L 133-145 [facility] Troponin T.cardiac [Mass/vol ume] in Serum or Plasma by High sensitivity methodOrdered By: Johnathon Robertson on 09-06-2024 Troponin T.cardiac High sensitivity method [Mass/Vol] 90 ng/L High <14 [facility] Comment on above: Critical Result(s) Yonatan TORRES at: [id number] by: NIECY Results read back by same. Troponin T.cardiac High sensitivity method [Mass/Vol] 89 ng/L High <14 [facility] Comment on above: Critical Result(s) Yonatan YEE at: 1940 by: NIECY Results read back by same. White blood cell (WBC) count Ordered By: Johnathon Robertson on 09-06-2024 WBC (Bld) [#/Vol] 4.3 10*3/uL Low 4.4-11.0 [facility] HISTORY PHYSICALon HISTORY PHYSICAL HNO ID: [id number] Author: ELEUTERIO WILLIAMSON MD Service: Vascular Surgery Author Type: Physician Type: H&P Filed: 08/26/2024 10:41 Note Text: UPDATED HISTORY AND PHYSICAL EXAMINATION SERVICE DATE: 08/26/2024 SERVICE TIME: 10:40 AM PHYSICAL EXAM MUST BE COMPLETED ON ADMISSION The History and Physical (completed in the past 30 days) has been reviewed and the patient has been examined. The contents accurately reflect the patient's condition with the following additions or revisions since the HANDP was completed. Examination indicates no changes. This HANDP can be found in the Electronic Medical Record SIGNATURE: Eleuterio Williamson MD PATIENT NAME: Margareth Gonzalez DATE: August 26, 2024 TIME: 10:40 AM [facility] OPERATIVE NOon 08-26-2024 OPERATIVE NO HNO ID: [id number] Author: ELEUTERIO WILLIAMSON MD Service: Vascular Surgery Author Type: Physician Type: Operative Report Filed: 08/28/2024 20:40 Note Text: OPERATIVE/PROCEDURE REPORT LOG ID: [id number] Surgery/Procedure Date: 08/26/2024 Incision/Procedure Start Time: 11:21 AM Incision Close/Procedure End Time: 11:45 AM Surgeon(s)/Procedur alist(s) and Yardage Control Operator Forming(s): Surgeons and Role: * Eleuterio Williamson MD - Primary Procedure(s): Left upper extremity fistulagram Central venogram Ultrasound-guided left arm venous access Angioplasty of outflow cubital vein with 7 mm IN.PACT drug coated balloon Anesthesia: Procedural Sedation Operative indications: 59 year old female who presents for a left upper extremity fistulogram due to elevated velocities and prolonged decannulation bleeding times. The risks, benefits, and alternatives were described to the patient who expressed understanding and consented to proceed. Procedure details: The patient was taken to the labor arbitrator and laid supine on the operating table. A huddle was performed with the surgery and nursing teams confirming the patient as Margareth Gonzalez with a date of 1965, the correct medical record number, allergies, as well as and nature and laterality of the procedure. Under continuous oxygen and monitoring, IV analgesia and sedation were given. The patient's left upper extremity was prepped and draped in the usual sterile fashion. A surgical timeout was performed. 1% Xylocaine was used to anesthetize the skin over the arteriovenous access distal to the inflow anastomosis. Ultrasound guidance was used during the procedure to establish and assess the patency of the arteriovenous access to be punctured. The graft was then punctured using real-time sonography. A needle entry was visualized with ultrasound. The arteriovenous access was then cannulated with a micropuncture needle in an antegrade fashion. The needle was exchanged out for a 4-Rwandan micropuncture sheath. The transitional sheath was used to perform a fistulagram with DSA runs visualizing the entire fistula as well as the central venous system. Angiography showed patent fistula with greater than 80% stenosis of the outflow cubital vein, patent upper arm and central venous system. A 0.035 stiff wire was introduced through the sheath and the transitional sheath was then upsized to a short 6-Rwandan sheath. The stenosis was crossed and ballooned with a 7 mm IN.PACT drug-coated balloon with inflation time of 30 minutes. The inflow was imaged and revealed no flow-limiting stenosis. Completion fistulagram revealed a technically satisfactory result with significantly improved thrill throughout the entire fistula. The sheath was removed and hemostasis was achieved with a 3-0 Monocryl suture and pressure. The patient was transferred to the recovery area in stable condition. Pre-Op/Pre-Procedur e Diagnosis: ESRD on hemodialysis, hemodialysis access malfunction Post-Op/Post-Proced ure Diagnosis: Same Estimated Blood Loss: 10 ml Specimens: None Implantable Devices: None Drains: None Complications: None I/primary surgeon/procedurali st performed the entire procedure. No qualified resident/fellow was available. Eleuterio Williamson MD [facility] 08-24-2024 [facility] Telephone ([facility]) ---- Margareth GONZALEZ ([id number]) 1965 F Date Time Provider Department 08/24/24 CHLOE ELLINGTON [facility] During your visit today, we recorded the following information about you: Chloe Ellington RN 08/24/2024 12:30 PM Signed You will receive a call the day before with a time to arrive. Nothing to eat or drink after MN, may take meds with sips of water,hold water pills if you take any. You will need someone to bring you and take you home and cannot drive for 24 hours. Entrance A, take elevator to 1st floor surge area. Allergies As of Date: 08/24/2024 Noted Allergy Reaction VICODIN (HYDROCODONE-ACETAM INOPHE*09/23/2007 11 - Vomiting BALSAM 115 09/23/2007 BALSAM JUAN 09/10/2022 16 - Unknown BARIUM SULFATE 05/01/2023 16 - Unknown BENADRYL ALLERGY DECONGESTANT 05/01/2023 9 - Itching BENADRYL (DIPHENHYDRAMINE HCL) 09/23/2007 2 - Rash 9 - Itching CODEINE 09/23/2007 11 - Vomiting 14 - Other: See Comments LISINOPRIL 05/26/2008 15 - Contraindication-Me dical Cornell* Comments: Acute renal failure MOLD 09/23/2007 NSAIDS (NON-STEROIDAL ANTI-INFLAM* 013 14 - Other: See Comments Comments: Unable to take nsaids after having gastric bypass. PENICILLINS 09/23/2007 10 - Anaphylaxis SEASONAL ALLERGIES 12/14/2008 14 - Other: See Comments Comments: Nose runs, sneezing... TETRACYCLINE 09/23/2007 2 - Rash VANILLA EXTRACT 09/23/2007 VANILLA EXTRACT FLAVOR 09/10/2022 16 - Unknown Date Reviewed: 08/10/2024 Reviewed by: Gloria Ball MA - Fully Assessed Prescriptions as of 08/24/2024 - ondansetron orally disintegrating (ZOFRAN ODT) 4 mg disintegrating tablet Take 1 tablet by mouth every 8 hours as needed for nausea/vomiting. - CPAP/BIPAP/OTHER APAP 5-20 cmH2O [facility] - Blood-Glucose Meter (ONETOUCH VERIO FLEX METER) Dispense one meter kit. E11.9 - blood sugar diagnostic (ONETOUCH VERIO TEST STRIPS) test strip Checks once per day to calibrate CGM - lancets (ONETOUCH DELICA PLUS LANCET) 33 gauge Checks once per day to calibrate CGM E11.9 - Blood-Glucose Sensor (FREESTYLE FESTUS 3 PLUS SENSOR) natty CHANGE SENSOR EVERY 15 days, USE FOR CONTINUOUS GLUCOSE MONITORING. E11.9 DIALYSIS PATIENT - Blood-Glucose Meter,Continuous (FREESTYLE FESTUS 3 READER) [facility] [place] one reader kit. E11.9 DIALYSIS PATIENT - dulaglutide (TRULICITY) 0.75 mg/0.5 mL pen injector Inject 0.75 mg subcutaneously one time a week. DX: E11.40 Type 2 DM - pregabalin (LYRICA) 25 mg capsule Take 1 capsule by mouth daily at bedtime for 90 days. - hydrOXYzine HCl (ATARAX) 50 mg tablet Take 1 tablet by mouth every 6 hours as needed for itching/rash. - omeprazole (PRILOSEC) 20 mg capsule Take 1 capsule by mouth once daily. - calcitriol (ROCALTROL) 0.25 mcg capsule 6 pills daily 3X/week -- Per diaylsis - sevelamer carbonate (RENVELA) 800 mg tablet Two tablets by mouth with meals -- Ordered by dialysis - NIFEdipine ER (PROCARDIA XL) 30 mg 24 hr tablet Take 3 tablets by mouth every afternoon. -- per dialysis - DULoxetine (CYMBALTA) 30 mg capsule Take 1 capsule by mouth once daily. - atorvastatin (LIPITOR) 40 mg tablet Take 1 tablet by mouth daily at bedtime. For cholesterol. - acetaminophen (TYLENOL) 500 mg tablet Take 1,000 mg by mouth every 12 hours. - melatonin 5 mg tablet Take 5 mg by mouth. As needed. - cholecalciferol (VITAMIN D3) 5,000 unit tab Take 5,000 Units by mouth twice daily. - Hbrsnqhj-Tj-Rqz-Fe- FA ( VITAMIN) ORAL Tab Take 1 tablet by mouth once daily. Meds Comments as of 11/28/2017: Pt states all meds were just gone over. Did not go over meds. Swathi Haddad Ma November 28, 2017 Problem List As Of Date 08/24/2024 Noted Resolved Acute gastritis [K29.00] 12/16/2007 08/04/2022 DM w/o complication type II, uncontrolled [IMO0*03/09/2008 12/07/2014 Routine gynecological examination [Z01.419] 03/09/2008 04/16/2017 Class: Chronic OBESITY NOS [E66.9] 03/09/2008 Acute anemia [D64.9] 03/09/2008 Background diabetic retinopathy (HCC) [E11.3299] 9 Asthma [J45.909] 03/09/2008 DIABETIC FOOT ULCER [L97.509] 03/09/2008 04/16/2017 CHOLELITHIASIS NOS [K80.20] 03/09/2008 Bipolar disorder, unspecified (HCC) [F31.9] 03/09/2008 Essential hypertension, benign [I10] 03/27/2008 03/16/2015 Primary hypertension [I10] Type 2 diabetes mellitus with stage 4 chronic k* Pain in limb [M79.609] 06/29/2008 02/21/2019 Dermatophytosis of nail [B35.1] 06/29/2008 04/20/2020 Corns and callosities [L84] 06/29/2008 04/16/2017 Unspecified Iron Deficiency Anemia [D50.9] 09/21/2008 EDEMA [R60.9] 09/21/2008 Ulcer of heel and midfoot (HCC) [L97.409] 02/08/2009 04/16/2017 Chronic pain [G89.29] 09/24/2009 02/21/2019 Fibromyalgia [M79.7] 09/24/2009 Neuropathy [G62.9] 09/24/2009 Elbow joint pain [M25.529] 09/24/2009 04/20/2020 Generalized pain [R52] 10/01/2009 02/21/2019 ACL tear [ (more content not included)... Normal [facility] 08-12-2024 [facility] Telephone ([facility]) ---- Margareth GONZLAEZ ([id number]) 1965 F Date Time Provider Department 08/12/24 SAIRA JACKSON VASSHASHI During your visit today, we recorded the following information about you: Jenni Castro, GRACE 08/12/2024 4:15 PM Signed Patient calling, she is scheduled for fistulagram on 08/19 however needs to change the time from 1245 to 9 am if possible Attempted to call patient but unable to leave a message Please call patient to reschedule [phone] Ashley Fraire 08/15/2024 12:36 PM Signed Spoke to patient to offer a new date, she will check with her transportation and call back. Ashley Fraire 08/15/2024 1:44 PM Signed Spoke to patient to move her fistulagram to August 26 because that is when he can get transpiration. Encounter closed. Allergies As of Date: 08/12/2024 Noted Allergy Reaction VICODIN (HYDROCODONE-ACETAM INOPHE*09/23/2007 11 - Vomiting BALSAM 115 09/23/2007 BALSAM JUAN 09/10/2022 16 - Unknown BARIUM SULFATE 05/01/2023 16 - Unknown BENADRYL ALLERGY DECONGESTANT 05/01/2023 9 - Itching BENADRYL (DIPHENHYDRAMINE HCL) 09/23/2007 2 - Rash 9 - Itching CODEINE 09/23/2007 11 - Vomiting 14 - Other: See Comments LISINOPRIL 05/26/2008 15 - Contraindication-Me dical Cornell* Comments: Acute renal failure MOLD 09/23/2007 NSAIDS (NON-STEROIDAL ANTI-INFLAM* 013 14 - Other: See Comments Comments: Unable to take nsaids after having gastric bypass. PENICILLINS 09/23/2007 10 - Anaphylaxis SEASONAL ALLERGIES 12/14/2008 14 - Other: See Comments Comments: Nose runs, sneezing... TETRACYCLINE 09/23/2007 2 - Rash VANILLA EXTRACT 09/23/2007 VANILLA EXTRACT FLAVOR 09/10/2022 16 - Unknown Date Reviewed: 08/10/2024 Reviewed by: Gloria Ball MA - Fully Assessed Reason for Visit: Appointment [186] Cmt: Needs to change time for procedure Prescriptions as of 08/15/2024 - doxycycline hyclate (VIBRAMYCIN) 100 mg capsule Take 1 capsule by mouth two times a day for 7 days. - ondansetron orally disintegrating (ZOFRAN ODT) 4 mg disintegrating tablet Take 1 tablet by mouth every 8 hours as needed for nausea/vomiting. - CPAP/BIPAP/OTHER APAP 5-20 cmH2O [facility] - Blood-Glucose Meter (ONETOUCH VERIO FLEX METER) Dispense one meter kit. E11.9 - blood sugar diagnostic (ONETOUCH VERIO TEST STRIPS) test strip Checks once per day to calibrate CGM - lancets (ONETOUCH DELICA PLUS LANCET) 33 gauge Checks once per day to calibrate CGM E11.9 - Blood-Glucose Sensor (FREESTYLE FESTUS 3 PLUS SENSOR) natty CHANGE SENSOR EVERY 15 days, USE FOR CONTINUOUS GLUCOSE MONITORING. E11.9 DIALYSIS PATIENT - Blood-Glucose Meter,Continuous (FREESTYLE FESTUS 3 READER) [facility] [place]pense one reader kit. E11.9 DIALYSIS PATIENT - dulaglutide (TRULICITY) 0.75 mg/0.5 mL pen injector Inject 0.75 mg subcutaneously one time a week. DX: E11.40 Type 2 DM - pregabalin (LYRICA) 25 mg capsule Take 1 capsule by mouth daily at bedtime for 90 days. - hydrOXYzine HCl (ATARAX) 50 mg tablet Take 1 tablet by mouth every 6 hours as needed for itching/rash. - omeprazole (PRILOSEC) 20 mg capsule Take 1 capsule by mouth once daily. - calcitriol (ROCALTROL) 0.25 mcg capsule 6 pills daily 3X/week -- Per diaylsis - sevelamer carbonate (RENVELA) 800 mg tablet Two tablets by mouth with meals -- Ordered by dialysis - NIFEdipine ER (PROCARDIA XL) 30 mg 24 hr tablet Take 3 tablets by mouth every afternoon. -- per dialysis - DULoxetine (CYMBALTA) 30 mg capsule Take 1 capsule by mouth once daily. - atorvastatin (LIPITOR) 40 mg tablet Take 1 tablet by mouth daily at bedtime. For cholesterol. - acetaminophen (TYLENOL) 500 mg tablet Take 1,000 mg by mouth every 12 hours. - melatonin 5 mg tablet Take 5 mg by mouth. As needed. - cholecalciferol (VITAMIN D3) 5,000 unit tab Take 5,000 Units by mouth twice daily. - Dwpvhuul-Ci-Fsq-Fe- FA ( VITAMIN) ORAL Tab Take 1 tablet by mouth once daily. Meds Comments as of 11/28/2017: Pt states all meds were just gone over. Did not go over meds. Swathi Haddad Ma November 28, 2017 Problem List As Of Date 08/12/2024 Noted Resolved Acute gastritis [K29.00] 12/16/2007 08/04/2022 DM w/o complication type II, uncontrolled [IMO0*03/09/2008 12/07/2014 Routine gynecological examination [Z01.419] 03/09/2008 04/16/2017 Class: Chronic OBESITY NOS [E66.9] 03/09/2008 Acute anemia [D64.9] 03/09/2008 Background diabetic retinopathy (HCC) [E11.3299] 9 Asthma [J45.909] 03/09/2008 DIABETIC FOOT ULCER [L97.509] 03/09/2008 04/16/2017 CHOLELITHIASIS NOS [K80.20] 03/09/2008 Bipolar disorder, unspecified (HCC) [F31.9] 03/09/2008 Essential hypertension, benign [I10] 03/27/2008 03/16/2015 Primary hypertension [I10] Type 2 diabetes mellitus with stage 4 chronic k* Pain in limb [M79.609] 06/29/2008 02/21/2019 Dermatophytosis of nail [B35.1] (more content not included)... Normal [facility] CNCOon 08-10-2024 CNCO Letter Text Normal [facility] CNOVon 08-10-2024 CNOV Office Visit ([facility]) ---- Margareth GONZALEZ ARNOLD ([id number]) 1965 F Date Time Provider Department 08/10/24 1:30 PM [facility] During your visit today, we recorded the following information about you: Temperature Pulse Respiration Blood pressure 98 degrees 100/minute 20/minute 158/80 Weight 85 kg Hever Cheema, CUSTOMS ENTRY CLERK.BENEFITS ADMINISTRATOR 08/10/2024 2:49 PM Signed Subjective Patient ID: Arnold is a 59 year old female who presents for No chief complaint on file.. The history is provided by the patient. No speech and language tutor was used. Patient presents to clinic via sister's personal vehicle with cough and congestion h/o COPD, ESRD with HD T//Thu, DM, BPD, HTN, IBS and childhood asthma +increased prod mucus Clear sputum +pain across chest (tenderness) radiating to upper back Dx with pulmonary nodules, last CT chest 07/27 States CPAP ordered and should arrive soon Tylenol and mucinex relieved s/s No fever, chills, V/D or abd pain +slight nausea r/t IBS Missed HD yesterday via [facility] Last HD on Sunday 08/06 access left forearm No smoking, ETOH nor street drugs PAST MEDICAL HISTORY Diagnosis Date Acute gastritis without mention of hemorrhage Allergic rhinitis Anaphylaxis Anemia Back pain Benign essential tremor Bipolar I disorder, most recent episode (or current) unspecified sectrum Bone mass Candidiasis, intertrigo Chronic kidney disease Contraceptive management Depression Diabetes ([facility]) Diarrhea DVT, lower extremity ([facility]) 08/2014 Right leg (6) Esophagitis ESRD (end stage renal disease) ([facility]) 07/03/2022 Facial fracture due to fall ([facility]) Fatigue Fibromyalgia Fracture Fracture of shaft of fibula GERD (gastroesophageal reflux disease) HLD (hyperlipidemia) on tricor Hyperlipidemia Hypertension Hypomagnesemia Hypopotassemia IBS (irritable bowel syndrome) Insomnia Intertrigo Knee pain Morbid obesity ([facility]) 03/11/2011 Myalgia Nausea Neck pain Neuropathy Nocturnal leg cramps Non-cardiac chest pain Obesity CASSIE (obstructive sleep apnea) 07/08/2011 Other polyp of sinus Other specified anemias Personal history of unspecified urinary disorder PMH - PAST MEDICAL HISTORY OF left knee surgery x3 Pulmonary nodules Pyelonephritis, acute Restless leg Ruptured appendicitis S/P gastric bypass Snoring Type 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, not stated as uncontrolled(250.50 ) on oral medications and Lanuts Unspecified asthma(493.90) on inhalers Unspecified essential hypertension on medical management Upper abdominal pain Urinary frequency Vitamin D deficiency PAST SURGICAL HISTORY Procedure Laterality Date CHOLECYSTECTOMY 04/02/2011 COLONOSCOPY W/BIOPSY SINGLE/MULTIPLE 12/16/2007 DILATION AND CURETTAGE DXAND/THER NONOBSTETRIC Dilation AND curettage EGD TRANSORAL BIOPSY SINGLE/MULTIPLE 12/16/2007 ESOPHAGOGASTRODUODE NOSCOPY TRANSORAL DIAGNOSTIC age 14 EGD LAPAROSCOPIC APPENDECTOMY 05/16/2011 MIDLINE INSERTION/CONSULT 07/29/2012 Lap Paul-en-Y gastric bypass PAST SURGICAL HISTORY OF age 14 left knee surgery, for dislocation PAST SURGICAL HISTORY OF age 5 warts removed PAST SURGICAL HISTORY OF 03/02/2007 laser surgery to both eyes for diabetic retinopathy PAST SURGICAL HISTORY OF 04/26/2008 Bilateral eye surgery- vitrectomy PAST SURGICAL HISTORY OF 06/30/2008 Left eye air fluid exchange PAST SURGICAL HISTORY OF 04/09, 07/07 retinal vitrectomies PAST SURGICAL HISTORY OF Left 07/24/2022 Left forearm AVG with [address] Valenzuela STRESS TEST 200p, 2014 Normal results TUBAL LIGATION HX ablation at the same time ALLERGIES Vicodin [Hydrocodone-Acetam inophen], Balsam 115, Balsam [place], Barium Sulfate, Benadryl Allergy Decongestant, Benadryl [Diphenhydramine Hcl], Codeine, Lisinopril, Mold, Nsaids (Non-Steroidal Anti-Inflammatory Drug), Penicillins, Seasonal Allergies, Tetracycline, Vanilla Extract, and Vanilla Extract Flavor MEDICATIONS CPAP/BIPAP/OTHER APAP 5-20 cmH2O DME [facility] Blood-Glucose Meter (ONETOUCH VERIO FLEX METER) Dispense one meter kit. E11.9 blood sugar diagnostic (ONETOUCH VERIO TEST STRIPS) test strip Checks once per day to calibrate CGM lancets (ONETOUCH DELICA PLUS LANCET) 33 gauge Checks once per day to calibrate CGM E11.9 Blood-Glucose Sensor (FREESTYLE FESTUS 3 PLUS SENSOR) natty CHANGE SENSOR EVERY 15 days, USE FOR CONTINUOUS GLUCOSE MONITORING. E11.9 DIALYSIS PATIENT Blood-Glucose Meter,Continuous (FREESTYLE FESTUS 3 READER) [facility] [place]pense one reader kit. E11.9 DIALYSIS PATIENT dulaglutide (TRULICITY) 0.75 mg/0.5 mL pen injector Inject 0.75 mg subcutaneously one time a week. DX: E11.40 Type 2 DM pregabalin (LYRICA) 25 mg capsule Take 1 capsule by mouth daily at bedtime for 90 days. hydrOXYzine HCl (ATARAX) (more content not included)... Normal [facility] Castro 08-04-2024 CNCO Letter Text Normal [facility] Kesha 08-04-2024 BO Telephone (AGSPINE3) ---- LISAMargareth BARRETT ([id number]) 1965 F [place] Date Time Provider Department 08/04/24 EFRA [id number] During your visit today, we recorded the following information about you: James Mc 08/04/2024 2:05 PM Signed No Show Documentation M Arnold Gonzalez no showed for an appointment on 08/04/24 with Efra Galarza APRN.BENEFITS ADMINISTRATOR at 1:00. She was scheduled for new patient appt. I called, no answer and no vm set up M stated the reason that she missed her appointment was because n/a. Resources discussed/offered to patient: none, no asnwer No show determined to be fault of patient: N/A This is the patients first no show in the last 12 months. Patient was rescheduled for n/a. Letter mailed : Yes Is this the Third or Fourth No Show? No James Mc August 04, 2024 2:04 PM Allergies As of Date: 08/04/2024 Noted Allergy Reaction VICODIN (HYDROCODONE-ACETAM INOPHE*09/23/2007 11 - Vomiting BALSAM 115 09/23/2007 BALSAM JUAN 09/10/2022 16 - Unknown BARIUM SULFATE 05/01/2023 16 - Unknown BENADRYL ALLERGY DECONGESTANT 05/01/2023 9 - Itching BENADRYL (DIPHENHYDRAMINE HCL) 09/23/2007 2 - Rash 9 - Itching CODEINE 09/23/2007 11 - Vomiting 14 - Other: See Comments LISINOPRIL 05/26/2008 15 - Contraindication-Me dical [facility]* Comments: Acute renal failure MOLD 09/23/2007 NSAIDS (NON-STEROIDAL ANTI-INFLAM* 013 14 - Other: See Comments Comments: Unable to take nsaids after having gastric bypass. PENICILLINS 09/23/2007 10 - Anaphylaxis SEASONAL ALLERGIES 12/14/2008 14 - Other: See Comments Comments: Nose runs, sneezing... TETRACYCLINE 09/23/2007 2 - Rash VANILLA EXTRACT 09/23/2007 VANILLA EXTRACT FLAVOR 09/10/2022 16 - Unknown Date Reviewed: 07/11/2024 Reviewed by: Yohana Montero OA - Fully Assessed Reason for Visit: No Show [1558] Cmt: Missed #1 Prescriptions as of 08/04/2024 - CPAP/BIPAP/OTHER APAP 5-20 cmH2O DME [facility] - Blood-Glucose Meter (ONETOUCH VERIO FLEX METER) Dispense one meter kit. E11.9 - blood sugar diagnostic (ONETOUCH VERIO TEST STRIPS) test strip Checks once per day to calibrate CGM - lancets (ONETOUCH DELICA PLUS LANCET) 33 gauge Checks once per day to calibrate CGM E11.9 - Blood-Glucose Sensor (FREESTYLE FESTUS 3 PLUS SENSOR) natty CHANGE SENSOR EVERY 15 days, USE FOR CONTINUOUS GLUCOSE MONITORING. E11.9 DIALYSIS PATIENT - Blood-Glucose Meter,Continuous (FREESTYLE FESTUS 3 READER) misc Dispense one reader kit. E11.9 DIALYSIS PATIENT - dulaglutide (TRULICITY) 0.75 mg/0.5 mL pen injector Inject 0.75 mg subcutaneously one time a week. DX: E11.40 Type 2 DM - pregabalin (LYRICA) 25 mg capsule Take 1 capsule by mouth daily at bedtime for 90 days. - hydrOXYzine HCl (ATARAX) 50 mg tablet Take 1 tablet by mouth every 6 hours as needed for itching/rash. - omeprazole (PRILOSEC) 20 mg capsule Take 1 capsule by mouth once daily. - calcitriol (ROCALTROL) 0.25 mcg capsule 6 pills daily 3X/week -- Per diaylsis - sevelamer carbonate (RENVELA) 800 mg tablet Two tablets by mouth with meals -- Ordered by dialysis - NIFEdipine ER (PROCARDIA XL) 30 mg 24 hr tablet Take 3 tablets by mouth every afternoon. -- per dialysis - ondansetron orally disintegrating (ZOFRAN ODT) 4 mg disintegrating tablet Take 1 tablet by mouth every 8 hours as needed for nausea/vomiting. - DULoxetine (CYMBALTA) 30 mg capsule Take 1 capsule by mouth once daily. - atorvastatin (LIPITOR) 40 mg tablet Take 1 tablet by mouth daily at bedtime. For cholesterol. - acetaminophen (TYLENOL) 500 mg tablet Take 1,000 mg by mouth every 12 hours. - melatonin 5 mg tablet Take 5 mg by mouth. As needed. - cholecalciferol (VITAMIN D3) 5,000 unit tab Take 5,000 Units by mouth twice daily. - Nivzlpoc-Oq-Gua-Fe- FA ( VITAMIN) ORAL Tab Take 1 tablet by mouth once daily. Meds Comments as of 11/28/2017: Pt states all meds were just gone over. Did not go over meds. Swathi Haddad Ma November 28, 2017 Problem List As Of Date 08/04/2024 Noted Resolved Acute gastritis [K29.00] 12/16/2007 08/04/2022 DM w/o complication type II, uncontrolled [IMO0*03/09/2008 12/07/2014 Routine gynecological examination [Z01.419] 03/09/2008 04/16/2017 Class: Chronic OBESITY NOS [E66.9] 03/09/2008 Acute anemia [D64.9] 03/09/2008 Background diabetic retinopathy (HCC) [E11.3299] 9 Asthma [J45.909] 03/09/2008 DIABETIC FOOT ULCER [L97.509] 03/09/2008 04/16/2017 CHOLELITHIASIS NOS [K80.20] 03/09/2008 Bipolar disorder, unspecified (HCC) [F31.9] 03/09/2008 Essential hypertension, benign [I10] 03/27/2008 03/16/2015 Primary hypertension [I10] Type 2 diabetes mellitus with stage 4 chronic k* Pain in limb [M79.609] 06/29/2008 02/21/2019 Dermatophytosis of nail [B35.1] 06/29/2008 04/20/2020 Corns and callosities [L84] 06/29/2008 04/16/2017 Unspecified Iron (more content not included)... Normal [facility] 08-01-2024 NOYN Telephone (FAMPWS) ---- Margareth GONZALEZ ([id number]) 1965 F [place] Date Time Provider Department 08/01/24 IGNACIO CHEATHAM During your visit today, we recorded the following information about you: Chloe Carpenter LPN 08/01/2024 3:27 PM Signed [facility] sends fax that Trulicity requires a prior authorization. See paper with alternatives. Patient did see endo but looks like was referred back to PCP? Ignacio Cheatham MD 08/01/2024 4:45 PM Signed The alternatives are insulin which is not in any way related to trulicity. She has been treated effectively with a glp-1 and switching would be detrimental Kelly Mcmahan LPN 08/02/2024 8:37 AM Signed Trulicity was filed by Honey Frazier. We have no pharmacy benefit on file for pt. Can call the pharmacy to see if there are issues with this. If PA is needed will see if Endo is doing it. Would need to do on covermymeds. Kelly Mcmahan LPN 08/02/2024 9:48 AM Signed Called the pharmacy and they report pt picked this rx up 07/26/24 with no copay. Allergies As of Date: 08/01/2024 Noted Allergy Reaction VICODIN (HYDROCODONE-ACETAM INOPHE*09/23/2007 11 - Vomiting BALSAM 115 09/23/2007 BALSAM JUAN 09/10/2022 16 - Unknown BARIUM SULFATE 05/01/2023 16 - Unknown BENADRYL ALLERGY DECONGESTANT 05/01/2023 9 - Itching BENADRYL (DIPHENHYDRAMINE HCL) 09/23/2007 2 - Rash 9 - Itching CODEINE 09/23/2007 11 - Vomiting 14 - Other: See Comments LISINOPRIL 05/26/2008 15 - Contraindication-Me dical Cornell* Comments: Acute renal failure MOLD 09/23/2007 NSAIDS (NON-STEROIDAL ANTI-INFLAM* 013 14 - Other: See Comments Comments: Unable to take nsaids after having gastric bypass. PENICILLINS 09/23/2007 10 - Anaphylaxis SEASONAL ALLERGIES 12/14/2008 14 - Other: See Comments Comments: Nose runs, sneezing... TETRACYCLINE 09/23/2007 2 - Rash VANILLA EXTRACT 09/23/2007 VANILLA EXTRACT FLAVOR 09/10/2022 16 - Unknown Date Reviewed: 07/11/2024 Reviewed by: Yohana Montero OA - Fully Assessed Reason for Visit: Insurance Authorization [[id number]] Cmt: Mikayla Prescriptions as of 08/02/2024 - CPAP/BIPAP/OTHER APAP 5-20 cmH2O DME [facility] - Blood-Glucose Meter (ONETOUCH VERIO FLEX METER) Dispense one meter kit. E11.9 - blood sugar diagnostic (ONETOUCH VERIO TEST STRIPS) test strip Checks once per day to calibrate CGM - lancets (ONETOUCH DELICA PLUS LANCET) 33 gauge Checks once per day to calibrate CGM E11.9 - Blood-Glucose Sensor (FREESTYLE FESTUS 3 PLUS SENSOR) natty CHANGE SENSOR EVERY 15 days, USE FOR CONTINUOUS GLUCOSE MONITORING. E11.9 DIALYSIS PATIENT - Blood-Glucose Meter,Continuous (FREESTYLE FESTUS 3 READER) misc Dispense one reader kit. E11.9 DIALYSIS PATIENT - dulaglutide (TRULICITY) 0.75 mg/0.5 mL pen injector Inject 0.75 mg subcutaneously one time a week. DX: E11.40 Type 2 DM - pregabalin (LYRICA) 25 mg capsule Take 1 capsule by mouth daily at bedtime for 90 days. - hydrOXYzine HCl (ATARAX) 50 mg tablet Take 1 tablet by mouth every 6 hours as needed for itching/rash. - omeprazole (PRILOSEC) 20 mg capsule Take 1 capsule by mouth once daily. - calcitriol (ROCALTROL) 0.25 mcg capsule 6 pills daily 3X/week -- Per diaylsis - sevelamer carbonate (RENVELA) 800 mg tablet Two tablets by mouth with meals -- Ordered by dialysis - NIFEdipine ER (PROCARDIA XL) 30 mg 24 hr tablet Take 3 tablets by mouth every afternoon. -- per dialysis - ondansetron orally disintegrating (ZOFRAN ODT) 4 mg disintegrating tablet Take 1 tablet by mouth every 8 hours as needed for nausea/vomiting. - DULoxetine (CYMBALTA) 30 mg capsule Take 1 capsule by mouth once daily. - atorvastatin (LIPITOR) 40 mg tablet Take 1 tablet by mouth daily at bedtime. For cholesterol. - acetaminophen (TYLENOL) 500 mg tablet Take 1,000 mg by mouth every 12 hours. - melatonin 5 mg tablet Take 5 mg by mouth. As needed. - cholecalciferol (VITAMIN D3) 5,000 unit tab Take 5,000 Units by mouth twice daily. - Hwjoboqo-Dl-Dqy-Fe- FA ( VITAMIN) ORAL Tab Take 1 tablet by mouth once daily. Meds Comments as of 11/28/2017: Pt states all meds were just gone over. Did not go over meds. Swathi Haddad Ma November 28, 2017 Problem List As Of Date 08/01/2024 Noted Resolved Acute gastritis [K29.00] 12/16/2007 08/04/2022 DM w/o complication type II, uncontrolled [IMO0*03/09/2008 12/07/2014 Routine gynecological examination [Z01.419] 03/09/2008 04/16/2017 Class: Chronic OBESITY NOS [E66.9] 03/09/2008 Acute anemia [D64.9] 03/09/2008 Background diabetic retinopathy (HCC) [E11.3299] 9 Asthma [J45.909] 03/09/2008 DIABETIC FOOT ULCER [L97.509] 03/09/2008 04/16/2017 CHOLELITHIASIS NOS [K80.20] 03/09/2008 Bipolar disorder, unspecified (HCC) [F31.9] 03/09/2008 Essential hypertension, benign [I10] 03/27/2008 03/16/2015 Primary hypertension [I10] Type 2 diabetes mellitus with stage 4 c (more content not included)... [facility] (TRACY) ---- Margareth GONZALEZ ([id number]) 1965 F [place] Date Time Provider Department 07/29/24 ALONDRA CHUNG During your visit today, we recorded the following information about you: Arnold Bocanegra LPN 07/29/2024 2:25 PM Signed Patient calling asking that Alondra can see her CT Chest results that Tresa Marcum [employer] had her get done. Patient said she is not going to set up an appt with Pulmonary right now. She has dialysis and the nurses there check her lungs 3 times weekly, and she will have issues getting appt with all of her dialysis days. I had went over notes from Tresa Marcum again with her and told [employer] wants her to see Pulmonary, she still did not want to schedule an appt. Patient said she is having problems getting her CPAP and may have to change DME providers. She wanted to know if the results of the CT would change any of her settings on her PAP device? Please advise Alondra Chung APRN.NOY 07/29/2024 3:13 PM Signed No, the CT chest results don't change my CPAP order. Does she need us to use a DME other than [facility]? Alondra Chung APRN.Nataly Sims LPN 07/29/2024 3:54 PM Signed Patient notified of results, verbalizes understanding of instructions. She would like to change DME to [facility]. NEHAL Groves Rebecca, APRN.NOY 07/29/2024 4:33 PM Signed Order printed for PAP for [facility] Alondra Chung APRN.Nataly Sims LPN 08/01/2024 8:40 AM Signed Faxed CPAP new device order to [facility]. NEHAL Groves Krystle, RN 08/01/2024 9:06 AM Addendum Eriberto with [facility] calls to let provider know that they are out of network for C-pap orders that were received. Call placed to patient and notified. She requests orders just be sent to [facility] as she knows they are in Network. Faxed per request to [facility] at [phone]. Diana Brand RN Allergies As of Date: 07/29/2024 Noted Allergy Reaction VICODIN (HYDROCODONE-ACETAM INOPHE*09/23/2007 11 - Vomiting BALSAM 115 09/23/2007 BALSAM JUAN 09/10/2022 16 - Unknown BARIUM SULFATE 05/01/2023 16 - Unknown BENADRYL ALLERGY DECONGESTANT 05/01/2023 9 - Itching BENADRYL (DIPHENHYDRAMINE HCL) 09/23/2007 2 - Rash 9 - Itching CODEINE 09/23/2007 11 - Vomiting 14 - Other: See Comments LISINOPRIL 05/26/2008 15 - Contraindication-Me dical Cornell* Comments: Acute renal failure MOLD 09/23/2007 NSAIDS (NON-STEROIDAL ANTI-INFLAM* 013 14 - Other: See Comments Comments: Unable to take nsaids after having gastric bypass. PENICILLINS 09/23/2007 10 - Anaphylaxis SEASONAL ALLERGIES 12/14/2008 14 - Other: See Comments Comments: Nose runs, sneezing... TETRACYCLINE 09/23/2007 2 - Rash VANILLA EXTRACT 09/23/2007 VANILLA EXTRACT FLAVOR 09/10/2022 16 - Unknown Date Reviewed: 07/11/2024 Reviewed by: Yohana Montero OA - Fully Assessed Reason for Visit: Patient Question [1477] Primary Visit Diagnosis:CASSIE (obstructive sleep apnea) [G47.33] Other Visit Diagnosis:Essential hypertension [I10] Order(s):PAP THERAPY ORDER [[id number]] Order #: [id number]: 1 CPAP/BIPAP/OTHERAPA P 5[facility] 0 Prescriptions as of 08/01/2024 - CPAP/BIPAP/OTHER APAP 5-20 cmH2O [facility] - Blood-Glucose Meter (ONETOUCH VERIO FLEX METER) Dispense one meter kit. E11.9 - blood sugar diagnostic (ONETOUCH VERIO TEST STRIPS) test strip Checks once per day to calibrate CGM - lancets (ONETOUCH DELICA PLUS LANCET) 33 gauge Checks once per day to calibrate CGM E11.9 - Blood-Glucose Sensor (FREESTYLE FESTUS 3 PLUS SENSOR) natty CHANGE SENSOR EVERY 15 days, USE FOR CONTINUOUS GLUCOSE MONITORING. E11.9 DIALYSIS PATIENT - Blood-Glucose Meter,Continuous (FREESTYLE FESTUS 3 READER) [facility] [place]pense one reader kit. E11.9 DIALYSIS PATIENT - dulaglutide (TRULICITY) 0.75 mg/0.5 mL pen injector Inject 0.75 mg subcutaneously one time a week. DX: E11.40 Type 2 DM - pregabalin (LYRICA) 25 mg capsule Take 1 capsule by mouth daily at bedtime for 90 days. - hydrOXYzine HCl (ATARAX) 50 mg tablet Take 1 tablet by mouth every 6 hours as needed for itching/rash. - omeprazole (PRILOSEC) 20 mg capsule Take 1 capsule by mouth once daily. - calcitriol (ROCALTROL) 0.25 mcg capsule 6 pills daily 3X/week -- Per diaylsis - sevelamer carbonate (RENVELA) 800 mg tablet Two tablets by mouth with meals -- Ordered by dialysis - NIFEdipine ER (PROCARDIA XL) 30 mg 24 hr tablet Take 3 tablets by mouth every afternoon. -- per dialysis - ondansetron orally disintegrating (ZOFRAN ODT) 4 mg disintegrating tablet Take 1 tablet by mouth every 8 hours as needed for nausea/vomiting. - DULoxetine (CYMBALTA) 30 mg capsule Take 1 capsule by mouth once daily. - atorvastatin (LIPITOR) 40 mg tablet Take 1 tablet by mouth daily at bedtime. For cholesterol. - acetaminophen (TYLENOL) 500 (more content not included)... [facility] Margareth GONZALEZ ([id number]) 1965 F Date Time Provider Department 07/28/24 SAIRA JACKSON During your visit today, we recorded the following information about you: Jenni Castro RN 07/28/2024 12:01 PM Signed Patient has US 07/27/24, plan is to call with results Please review and advise. SHONDA 02/09/24 HISTORY OF PRESENT ILLNESS: Ms. Gonzalez is a 58 year old female who presents today for a vascular surgery follow-up visit for her av fistula. States they are using her fistula at dialysis. States it is painful. IMPRESSION: Ms. Gonzalez is a 58 year old female with ESRD, AV graft pain . PLAN and RECOMMENDATIONS: Will get fistula ultrasound and call with results Maria Eugenia Palencia OCCA 08/03/2024 10:32 AM Signed [facility] requested duplex and notified of Dr Jackson's response via fax. Transmission complete to [phone]. Jenni Castro RN 08/09/2024 9:20 AM Addendum Saira Jackson, DO You; [facility]8 days ago Reviewed her duplex. Her graft has adequate flow for dialysis. If her pain has improved, no need for intervention. If she is having increased pain during dialysis or issues with clearance/flow, would recommend fistulogram Call dialysis to follow up for update, spoke with Simona who spoke with ocular care technician. They are reporting prolonged bleeding after tx and pain. Unclear how long having bleeding concern or when pain is occurring. The nurse is off today at dialysis and advised simona would like to speak to the nurse regarding the concerns. Will wait call to discuss Jenni Castro RN 08/10/2024 4:24 PM Signed Patient scheduled for fistulagram Allergies As of Date: 07/28/2024 Noted Allergy Reaction VICODIN (HYDROCODONE-ACETAM INOPHE*09/23/2007 11 - Vomiting BALSAM 115 09/23/2007 BALSAM JUAN 09/10/2022 16 - Unknown BARIUM SULFATE 05/01/2023 16 - Unknown BENADRYL ALLERGY DECONGESTANT 05/01/2023 9 - Itching BENADRYL (DIPHENHYDRAMINE HCL) 09/23/2007 2 - Rash 9 - Itching CODEINE 09/23/2007 11 - Vomiting 14 - Other: See Comments LISINOPRIL 05/26/2008 15 - Contraindication-Me dical Cornell* Comments: Acute renal failure MOLD 09/23/2007 NSAIDS (NON-STEROIDAL ANTI-INFLAM* 013 14 - Other: See Comments Comments: Unable to take nsaids after having gastric bypass. PENICILLINS 09/23/2007 10 - Anaphylaxis SEASONAL ALLERGIES 12/14/2008 14 - Other: See Comments Comments: Nose runs, sneezing... TETRACYCLINE 09/23/2007 2 - Rash VANILLA EXTRACT 09/23/2007 VANILLA EXTRACT FLAVOR 09/10/2022 16 - Unknown Date Reviewed: 07/11/2024 Reviewed by: Yohana Montero OA - Fully Assessed Reason for Visit: Results [95] Prescriptions as of 08/10/2024 - predniSONE (DELTASONE) 20 mg tablet Take 2 tablets by mouth once daily for 4 days. - doxycycline hyclate (VIBRAMYCIN) 100 mg capsule Take 1 capsule by mouth two times a day for 7 days. - ondansetron orally disintegrating (ZOFRAN ODT) 4 mg disintegrating tablet Take 1 tablet by mouth every 8 hours as needed for nausea/vomiting. - CPAP/BIPAP/OTHER APAP 5-20 cmH2O [facility] - Blood-Glucose Meter (ONETOUCH VERIO FLEX METER) Dispense one meter kit. E11.9 - blood sugar diagnostic (ONETOUCH VERIO TEST STRIPS) test strip Checks once per day to calibrate CGM - lancets (U.S. TrailMapsTOUCH DELICA PLUS LANCET) 33 gauge Checks once per day to calibrate CGM E11.9 - Blood-Glucose Sensor (FREESTYLE FESTUS 3 PLUS SENSOR) natty CHANGE SENSOR EVERY 15 days, USE FOR CONTINUOUS GLUCOSE MONITORING. E11.9 DIALYSIS PATIENT - Blood-Glucose Meter,Continuous (FREESTYLE FESTUS 3 READER) misc Dispense one reader kit. E11.9 DIALYSIS PATIENT - dulaglutide (TRULICITY) 0.75 mg/0.5 mL pen injector Inject 0.75 mg subcutaneously one time a week. DX: E11.40 Type 2 DM - pregabalin (LYRICA) 25 mg capsule Take 1 capsule by mouth daily at bedtime for 90 days. - hydrOXYzine HCl (ATARAX) 50 mg tablet Take 1 tablet by mouth every 6 hours as needed for itching/rash. - omeprazole (PRILOSEC) 20 mg capsule Take 1 capsule by mouth once daily. - calcitriol (ROCALTROL) 0.25 mcg capsule 6 pills daily 3X/week -- Per diaylsis - sevelamer carbonate (RENVELA) 800 mg tablet Two tablets by mouth with meals -- Ordered by dialysis - NIFEdipine ER (PROCARDIA XL) 30 mg 24 hr tablet Take 3 tablets by mouth every afternoon. -- per dialysis - DULoxetine (CYMBALTA) 30 mg capsule Take 1 capsule by mouth once daily. - atorvastatin (LIPITOR) 40 mg tablet Take 1 tablet by mouth daily at bedtime. For cholesterol. - acetaminophen (TYLENOL) 500 mg tablet Take 1,000 mg by mouth every 12 hours. - melatonin 5 mg tablet Take 5 mg by mouth. As needed. - cholecalciferol (VITAMIN D3) 5,000 unit tab Take 5,000 Units by mouth twice daily. - Iyxnyiaq-Cg-Uzh-Fe- FA ( VITAMIN) ORAL Tab Take 1 tablet by mouth once da (more content not included)... Normal [facility] CT CHEST WO IVCONon 07-28-19 CT CHEST WO IVCON * * *Final Report* * * DATE OF EXAM: Jul 27 2024 2:44PM [facility] [id number] - CT CHEST WO IVCON / PROCEDURE REASON: Lung nodules * * * * Physician Interpretation * * * * EXAMINATION: CHEST CT WITHOUT CONTRAST CLINICAL HISTORY: Lung nodules Technique: Spiral CT acquisition of the chest from the thoracic inlet to the upper abdomen without contrast. MQ: [id number] CT Radiation dose: Integrated Dose-length product (DLP) for this visit = 230 mGy*cm CT Dose Reduction Employed: Automated exposure control(AEC) and iterative recon Comparison: 04/03/2023, 08/15/2021 RESULT: Limitations: None. Lines, tubes, and devices: None. Lung parenchyma and airways: There is no pneumothorax or endobronchial lesion. There is linear atelectasis seen within the lingula and left lower lobe. There is a stable, approximately 1 cm nodular opacity seen within the right middle lobe (series 5, image #121). Additionally, there are stable subcentimeter pulmonary nodules. Many of the new pulmonary nodules described the prior examination have resolved interval. Other new pulmonary nodules are seen elsewhere lungs. For example, there has been interval development of an approximately 4 mm groundglass attenuation subpleural nodule within the left lower lobe (series 5, image #120). Although findings suggest waxing/waning multifocal infectious or inflammatory disease, continued interval surveillance is recommended. There is no pneumothorax or endobronchial lesion. Areas of groundglass attenuation and air-trapping within both lungs suggests reactive airways disease. Pleural space: There is no pleural effusion. Lower neck, lymph nodes, and mediastinum: There are no pathologically enlarged axillary lymph nodes. Interval development of mild mediastinal lymphadenopathy. For example, a subcarinal lymph node currently measures approximately 1.1 cm short axis dimension (series 5, image #83), previously 0.6 cm. Prominent bilateral hilar lymph nodes are likely reactive. Heart, pericardium, and thoracic vessels: Atherosclerotic calcifications are present within the thoracic aorta and coronary arteries. The heart is normal in size. Again seen is a trace pericardial effusion. Bones and soft tissues: There is multilevel degenerative change seen within the visualized spine. Bilateral shoulder DJD. No destructive bony lesion. Upper abdomen: There are postsurgical changes of prior gastric bypass surgery. Stable, nonspecific thickening of the adrenal glands, bilaterally, with stable subcentimeter bilateral adrenal adenomas. There is bilateral renal atrophy. There are visceral arterial vascular calcifications. The patient is status post cholecystectomy. There is upper abdominal lymphadenopathy. For example, there is an approximately 1.3 cm in short axis dimension lymph node within the right abdomen (series 5, image #73). IMPRESSION: Although many of the pulmonary nodules, including a 1 cm nodular opacity anteriorly within the right middle lobe, are stable, other pulmonary nodules have resolved interval, while new pulmonary nodules have developed. Although findings suggest waxing/waning multifocal infectious or inflammatory disease, continued interval surveillance is recommended. Regions of groundglass attenuation and air-trapping within both lungs suggests reactive airways disease. No felix lymphadenopathy is seen within the chest. Again seen is stable nonspecific thickening of adrenal glands, bilaterally, with stable subcentimeter bilateral adrenal adenomas. ACTIONABLE RESULT: FOLLOW-UP Acuity: Actionable Findings: Thoracic-Lung nodules Routing code: RI_[id number] Recommendation: CT Chest WO IVCON Time Frame: 6-12 months COMMUNICATION: Results will be communicated with the ordering provider via Help.[email or web address] staff message or phone message by [facility] within 2 business days of report finalization. --END OF FINDING-- Allergist/Md: SHAMAR Transcribe Date/Time: Jul 28 2024 6:57A Dictated by : MICHEAL CANO MD This examination was interpreted and the report reviewed and electronically signed by: MICHAEL CANO MD on Jul 28 2024 7:06AM EST [id number] ACTIONABLE Invalid Interpretation Code [facility] US A/V FISTULA GRAFT UNL VAS LABon 07-27-2024 US A/V FISTULA GRAFT UNL VAS LAB Non-Invasive Vascular Laboratory [facility] Upper Extremity Arterial Duplex Unilateral - Left Date of service/time: 07/27/2024 3:05:40 PM Name: MS. Margareth GONZALEZ Date of : 1965 Age: 59 years Gender: F Clinical Indication Follow up left Brachial artery- cubital vein forearm loop graft created 07/24/2022. TECHNIQUE -------- An arterial duplex ultrasound examination was performed, including grayscale imaging and color Doppler and spectral Doppler examination of the below mentioned arteries. FINDINGS -------- LEFT SIDE VESSEL/GRAFT Brachial artery mid: PSV: 365 cm/s. EDV: 176 cm/s. Brachial artery distal: PSV: 275 cm/s. EDV: 136 cm/s. Brachial artery- cubital vein forearm loop graft arterial anastomotic site: PSV: 574 cm/s. EDV: 245 cm/s. Brachial artery- cubital vein forearm loop graft proximal: PSV: 335 cm/s. EDV: 161 cm/s. Brachial artery- cubital vein forearm loop graft mid: PSV: 192 cm/s. EDV: 99 cm/s. Brachial artery- cubital vein forearm loop graft distal: PSV: 158 cm/s. EDV: 87 cm/s. Brachial artery- cubital vein forearm loop graft venous anastomotic site: PSV: 195 cm/s. EDV: 108 cm/s. cubital vein : PSV: 242 cm/s. EDV: 103 cm/s. cubital vein : PSV: 1095 cm/s. EDV: 609 cm/s. Volume flow Proximal graft: 1608 ml/min Mid graft: 1717 ml/min Distal graft: 1485 ml/min Volume flow estimate for arteriovenous graft is: 1603 ml/min IMPRESSION LEFT SIDE Brachial artery mid to distal: patent . Brachial artery- cubital vein forearm loop graft throughout: patent . Cubital vein antecubital fossa: 50-99% stenosis . Basilic vein distal upper arm: patent . Brachial artery- cubital vein forearm loop graft has adequate flow for dialysis. Technologist: Yuko De La Torre T Ordering physician: SAIRA JACKSON Interpreting physician: Marco Benítez MD, RPVI Final CC [employer] [facility] : [id number] See Link below for Image Normal [facility] CNOVon 07-06-2024 CNOV Office Visit (ENWSTR) ---- LISAMargareth ([id number]) 1965 F [place] Date Time Provider Department 07/06/24 2:00 PM TRINIDAD FRAZIER ENWSTR During your visit today, we recorded the following information about you: Temperature Pulse Respiration Blood pressure 98.3 degrees 95/minute 14/minute 160/84 Weight 83.5 kg Trinidad Frazier, PATRICE.BENEFITS ADMINISTRATOR 07/06/2024 1:59 PM Signed OFFICE VISIT PROGRESS NOTE CC Margareth Gonzalez is a 59 year old who presents today for blood sugar review, DM med dosing review, adjust . HPI PATIENT OF DR. CLARK, ENDOCRINE Diagnosed with diabetes mellitus type 2, ~ 1989 Last endocrine OV 10/02/2021 with SHILO BERGMAN HPI 07/07/2023 Does not check BG Not using his CGM In dialysis 3 times per week Recently started on GLP1 Had no insurance until now, was not able to continue with CGM or glucometer Was restarted on GLP1 by PCP CURRENT DM MEDS TRULICITY 0.75 mg weekly SMBG Type of Monitor: Other HAD no insurance, was unable to use her CGM nor glucometer Frequency of Monitoring: times a day BG Values: Breakfast: Lunch: Dinner: Bed-time: Values over past week: Highest ; Lowest Hypoglycemia: no Diet: No specific diet regimen - progressively losing appetite Exercise: working on that -- pool therapy DM REVIEW OF SYSTEMS Last Eye Exam : next 06/2024 Last Podiatry Exam: 12/2023 Cardiorespiratory: negative, denies chest pain, pressure Claudication: no Dyslipidemia: Yes, controlled on medication High Blood Pressure: Yes, controlled on medication CURRENT LABS Recent Labs 11/03/14 1030 11/03/14 1053 11/29/14 0852 02/05/15 0829 03/26/17 1116 04/16/17 1241 12/28/17 1129 07/07/18 1157 04/21/20 0859 07/20/20 1245 10/27/20 1042 12/26/20 0808 12/18/21 0844 12/18/21 0845 03/22/22 1029 05/24/22 1050 06/30/22 1613 07/03/22 0914 08/11/22 0810 08/11/22 1002 08/21/22 1049 08/26/22 0934 08/26/22 0941 11/10/22 1604 01/21/23 0000 06/10/23 2101 06/11/23 0325 06/16/23 0245 06/17/23 0514 07/28/23 1908 07/29/23 0411 08/03/23 0003 08/04/23 0448 08/05/23 0456 ALT -- -- -- < > 11 < > 18 < > 18 < > -- < > -- -- 18 < > -- < > -- -- -- -- -- 15 -- 12 -- -- -- 15 -- -- -- -- AST -- -- -- < > 16 < > 18 < > 20 < > -- < > -- -- 23 < > -- < > -- -- -- -- -- 21 -- 17 -- -- -- 26 -- -- -- -- UCRR Unable to assay. No specimen received. < > 62.2 -- 43.4 -- -- -- -- -- 52.7 < > -- < > -- -- 30.1 -- 55.1 -- -- 56.5 -- -- -- -- -- -- -- -- -- -- -- -- UALBR Unable to assay. No specimen received. < > 54.9* -- 219.5* -- -- -- -- -- 96.3 -- -- -- -- -- -- -- -- -- -- -- -- -- -- -- -- -- -- -- -- -- -- -- UALBCR Unable to assay. No specimen received. -- -- -- 506* -- -- -- -- -- 183* -- -- -- -- -- -- -- -- -- -- -- -- -- -- -- -- -- -- -- -- -- -- -- TSH -- -- -- -- -- -- 2.170 -- -- -- -- -- -- -- -- -- -- -- -- -- -- -- -- -- -- -- -- -- -- -- -- -- -- -- TPROT -- -- -- < > 6.2* < > 6.5 < > 6.4 < > -- < > -- -- 6.0* < > -- < > -- -- -- -- -- 5.8* -- 6.4 -- -- -- 6.3 -- -- -- -- ALB 4.0 -- 4.0 < > 3.7* < > 3.8* < > 4.0 < > -- < > 3.9 < > 3.3* < > -- < > -- 3.8* < > -- < > 3.4* -- 3.8* -- -- -- 3.4* -- -- -- -- CA 9.6 -- 10.5 < > 9.2 < > 9.1 < > 9.0 < > -- < > 8.8 < > -- < > -- < > -- 8.0* < > -- < > 8.7 -- 9.3 < > 8.3* < > 8.9 < > 8.7 8.7 8.6 TBILI -- -- -- < > 0.3 < > 0.3 < > 0.4 < > -- < > -- -- 0.3 < > -- < > -- -- -- -- -- 0.3 -- 0.4 -- -- -- 0.4 -- -- -- -- ALKPHOS -- -- -- < > 57 < > 69 < > 84 < > -- < > -- -- 90 < > -- < > -- -- -- -- -- 105 -- 152* -- -- -- 138* -- -- -- -- GLUC 181* -- 117* < > 193* < > 97 < > 171* < > -- < > 110* < > -- < > -- < > -- 237* < > -- < > 122* -- 178* < > 155* < > 72* < > 106* 77 103* BUN 12 -- 8 < > 19 < > 30* < > 30* < > -- < > 28* < > -- < > -- < > -- 36* < > -- < > 29* -- 57* < > 50* < > 26* < > 23* 32* 17 CREAT 1.19 -- 1.35 < > 1.32* < > 1.93* < > 2.32* < > -- < > 3.47* < > -- < > -- < > -- 5.10* < > -- < > 3.83* -- 6.08* < > 5.50* < > 3.78* < > 3.81* 4.36* 2.89* NA 139 -- 138 < > 138 < > 139 < > 140 < > -- < > 139 < > -- < > -- < > -- 137 < > -- < > 135* -- 133* < > 134* < > 137 < > 131* 137 136 K 4.9 -- 5.0 < > 4.9 < > 4.8 < > 4.8 < > -- < > 4.8 < > -- < > -- < > -- 4.6 < > -- < > 4.6 -- 5.8* < > 4.7 < > 5.0 < > 4.6 5.0 4.3 CHLOR 102 -- 104 < > 102 < > 104 < > 106* < > -- < > 105 < > -- < > -- < > -- 100 < > -- < > 97 -- 97 < > 97 < > 95* < > 97 104 99 CO2 22* -- 16* < > 23 < > 24 < > 26 < > -- < > 23 < > -- < > -- < > -- 23 < > -- < > 23 -- 22 < > 25 < > 34* < > 28 24 28 ANION 15 -- 18* < > 13 < > 11 < > 8* < > -- < > 11 < > -- < > -- < > -- 14 < > -- < > 15 -- 14 < > 12 < > 8* < > 6* 9 9 EGFROTH 48 -- 42 < > 42 < > 27 < > 22 < > -- < > 15* < > -- < > -- < > -- 9* < > -- < > 13* -- 8* < > 8* < > 13* < > 13* 11* 18* HBA1C -- -- -- < > 8.5* < > 7.3* < > (more content not included)... [facility] CNPNon 07-06-2024 CNPN Telephone (ENWSTR) ---- Margareth GONZALEZ ([id number]) 1965 F Date Time Provider Department 07/06/24 TRINIDAD FRAZIER ENWSTR During your visit today, we recorded the following information about you: Audra Sparks MA 07/06/2024 2:57 PM Signed Cover My Meds prior auth soriano [id number] required. ALANA Mir Lakieta D 07/08/2024 2:58 PM Signed BREANNA Whitfield has been archived. Please confirm what medication needs a pa to process. Delfin Echevarria Prior Traffic Engineer Endocrinology AND Metabolism [place] Audra Sparks MA 07/08/2024 3:05 PM Signed Info off cover my meds. Sorry. ALANA Mir Lakieta D 07/20/2024 3:37 PM Signed Delfin Gaona Traffic Engineer Endocrinology AND Metabolism [place] Allergies As of Date: 07/06/2024 Noted Allergy Reaction VICODIN (HYDROCODONE-ACETAM INOPHE*09/23/2007 11 - Vomiting BALSAM 115 09/23/2007 BALSAM JUAN 09/10/2022 16 - Unknown BARIUM SULFATE 05/01/2023 16 - Unknown BENADRYL ALLERGY DECONGESTANT 05/01/2023 9 - Itching BENADRYL (DIPHENHYDRAMINE HCL) 09/23/2007 2 - Rash 9 - Itching CODEINE 09/23/2007 11 - Vomiting 14 - Other: See Comments LISINOPRIL 05/26/2008 15 - Contraindication-Me dical Cornell* Comments: Acute renal failure MOLD 09/23/2007 NSAIDS (NON-STEROIDAL ANTI-INFLAM* 013 14 - Other: See Comments Comments: Unable to take nsaids after having gastric bypass. PENICILLINS 09/23/2007 10 - Anaphylaxis SEASONAL ALLERGIES 12/14/2008 14 - Other: See Comments Comments: Nose runs, sneezing... TETRACYCLINE 09/23/2007 2 - Rash VANILLA EXTRACT 09/23/2007 VANILLA EXTRACT FLAVOR 09/10/2022 16 - Unknown Date Reviewed: 07/06/2024 Reviewed by: Audra Sparks MA - Fully Assessed Reason for Visit: Supervisor - Other [[id number]] Cmt: Prior Auth Prescriptions as of 07/20/2024 - Blood-Glucose Meter (ONETOUCH VERIO FLEX METER) Dispense one meter kit. E11.9 - blood sugar diagnostic (ONETOUCH VERIO TEST STRIPS) test strip Checks once per day to calibrate CGM - lancets (ONETOUCH DELICA PLUS LANCET) 33 gauge Checks once per day to calibrate CGM E11.9 - Blood-Glucose Sensor (FREESTYLE FESTUS 3 PLUS SENSOR) natty CHANGE SENSOR EVERY 15 days, USE FOR CONTINUOUS GLUCOSE MONITORING. E11.9 DIALYSIS PATIENT - Blood-Glucose Meter,Continuous (FREESTYLE FESTUS 3 READER) [facility] [place]pense one reader kit. E11.9 DIALYSIS PATIENT - dulaglutide (TRULICITY) 0.75 mg/0.5 mL pen injector Inject 0.75 mg subcutaneously one time a week. DX: E11.40 Type 2 DM - CPAP/BIPAP/OTHER APAP 5-20 cmH2O - pregabalin (LYRICA) 25 mg capsule Take 1 capsule by mouth daily at bedtime for 90 days. - hydrOXYzine HCl (ATARAX) 50 mg tablet Take 1 tablet by mouth every 6 hours as needed for itching/rash. - omeprazole (PRILOSEC) 20 mg capsule Take 1 capsule by mouth once daily. - calcitriol (ROCALTROL) 0.25 mcg capsule 6 pills daily 3X/week -- Per diaylsis - sevelamer carbonate (RENVELA) 800 mg tablet Two tablets by mouth with meals -- Ordered by dialysis - NIFEdipine ER (PROCARDIA XL) 30 mg 24 hr tablet Take 3 tablets by mouth every afternoon. -- per dialysis - ondansetron orally disintegrating (ZOFRAN ODT) 4 mg disintegrating tablet Take 1 tablet by mouth every 8 hours as needed for nausea/vomiting. - DULoxetine (CYMBALTA) 30 mg capsule Take 1 capsule by mouth once daily. - atorvastatin (LIPITOR) 40 mg tablet Take 1 tablet by mouth daily at bedtime. For cholesterol. - acetaminophen (TYLENOL) 500 mg tablet Take 1,000 mg by mouth every 12 hours. - melatonin 5 mg tablet Take 5 mg by mouth. As needed. - cholecalciferol (VITAMIN D3) 5,000 unit tab Take 5,000 Units by mouth twice daily. - Boxzhyhx-Fh-Fkz-Fe- FA ( VITAMIN) ORAL Tab Take 1 tablet by mouth once daily. Meds Comments as of 11/28/2017: Pt states all meds were just gone over. Did not go over meds. Swathi Haddad Ma November 28, 2017 Problem List As Of Date 07/06/2024 Noted Resolved Acute gastritis [K29.00] 12/16/2007 08/04/2022 DM w/o complication type II, uncontrolled [IMO0*03/09/2008 12/07/2014 Routine gynecological examination [Z01.419] 03/09/2008 04/16/2017 Class: Chronic OBESITY NOS [E66.9] 03/09/2008 Acute anemia [D64.9] 03/09/2008 Background diabetic retinopathy (HCC) [E11.3299] 9 Asthma [J45.909] 03/09/2008 DIABETIC FOOT ULCER [L97.509] 03/09/2008 04/16/2017 CHOLELITHIASIS NOS [K80.20] 03/09/2008 Bipolar disorder, unspecified (HCC) [F31.9] 03/09/2008 Essential hypertension, benign [I10] 03/27/2008 03/16/2015 Primary hypertension [I10] Type 2 diabetes mellitus with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 [I10] Type 2 diabetes mellitus with stage 4 chronic (more content not included)... Normal [facility] CNOVon 04-15-2024 CNOV Office Visit ([facility]) ---- Margareth GONZALEZ ([id number]) 1965 F Date Time Provider Department 04/15/24 12:15 PM [facility] During your visit today, we recorded the following information about you: Temperature Pulse Respiration Blood pressure 98 degrees 96/minute 20/minute 173/80 Weight 87 kg Sha Ray APRN.BENEFITS ADMINISTRATOR 04/15/2024 12:57 PM Signed Subjective HPI Nontoxic-appearing 58-year-old female presents urgent care chief plaint dental pain. Duration of symptoms 3 days. Associated symptoms dental pain dental decay. Presents today for evaluation. OTC medications none. History of dental infections and similar. Denies any fevers vomiting abdominal pain. No trismus difficulty swallowing his secretion decreased range of motion of neck or elevation of floor of mouth. Past medical history prescription medications allergies reviewed. .Patient presents with: Dental Problem: R lower tooth pain x 3 days increasing, swelling PAST MEDICAL HISTORY Diagnosis Date Acute gastritis without mention of hemorrhage Allergic rhinitis Anaphylaxis Anemia Back pain Benign essential tremor Bipolar I disorder, most recent episode (or current) unspecified sectrum Bone mass Candidiasis, intertrigo Chronic kidney disease Contraceptive management Depression Diabetes (HCC) Diarrhea DVT, lower extremity ([facility]) 08/2014 Right leg (6) Esophagitis ESRD (end stage renal disease) ([facility]) 07/03/2022 Facial fracture due to fall (HCC) ([facility]) Fatigue Fibromyalgia Fracture Fracture of shaft of fibula GERD (gastroesophageal reflux disease) HLD (hyperlipidemia) on tricor Hyperlipidemia Hypertension Hypomagnesemia Hypopotassemia IBS (irritable bowel syndrome) Insomnia Intertrigo Knee pain Morbid obesity (HCC) 03/11/2011 Myalgia Nausea Neck pain Neuropathy Nocturnal leg cramps Non-cardiac chest pain Obesity CASSIE (obstructive sleep apnea) 07/08/2011 Other polyp of sinus Other specified anemias Personal history of unspecified urinary disorder PMH - PAST MEDICAL HISTORY OF left knee surgery x3 Pulmonary nodules Pyelonephritis, acute Restless leg Ruptured appendicitis S/P gastric bypass Snoring Type 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, not stated as uncontrolled(250.50 ) on oral medications and Lanuts Unspecified asthma(493.90) on inhalers Unspecified essential hypertension on medical management Upper abdominal pain Urinary frequency Vitamin D deficiency PAST SURGICAL HISTORY Procedure Laterality Date CHOLECYSTECTOMY 04/02/2011 COLONOSCOPY W/BIOPSY SINGLE/MULTIPLE 12/16/2007 DILATION AND CURETTAGE DXAND/THER NONOBSTETRIC Dilation AND curettage EGD TRANSORAL BIOPSY SINGLE/MULTIPLE 12/16/2007 ESOPHAGOGASTRODUODE NOSCOPY TRANSORAL DIAGNOSTIC age 14 EGD LAPAROSCOPIC APPENDECTOMY 05/16/2011 MIDLINE INSERTION/CONSULT 07/29/2012 Lap Paul-en-Y gastric bypass PAST SURGICAL HISTORY OF age 14 left knee surgery, for dislocation PAST SURGICAL HISTORY OF age 5 warts removed PAST SURGICAL HISTORY OF 03/02/2007 laser surgery to both eyes for diabetic retinopathy PAST SURGICAL HISTORY OF 04/26/2008 Bilateral eye surgery- vitrectomy PAST SURGICAL HISTORY OF 06/30/2008 Left eye air fluid exchange PAST SURGICAL HISTORY OF 04/09, 07/07 retinal vitrectomies PAST SURGICAL HISTORY OF Left 07/24/2022 Left forearm AVG with [address] Valenzuela STRESS TEST 200p, 2015 Normal results TUBAL LIGATION HX ablation at the same time ALLERGIES Vicodin [Hydrocodone-Acetam inophen], Balsam 115, Balsam [place], Barium Sulfate, Benadryl Allergy Decongestant, Benadryl [Diphenhydramine Hcl], Codeine, Lisinopril, Mold, Nsaids (Non-Steroidal Anti-Inflammatory Drug), Penicillins, Seasonal Allergies, Tetracycline, Vanilla Extract, and Vanilla Extract Flavor MEDICATIONS hydrOXYzine pamoate (VISTARIL) 25 mg capsule Take 1 capsule by mouth at bedtime as needed. ondansetron orally disintegrating (ZOFRAN ODT) 4 mg disintegrating tablet Take 1 tablet by mouth every 8 hours as needed for nausea/vomiting. hydrOXYzine HCl (ATARAX) 50 mg tablet Take 1 tablet by mouth every 6 hours as needed for itching/rash. NIFEdipine ER (PROCARDIA XL) 30 mg 24 hr tablet Take 1 tablet by mouth every afternoon. sevelamer carbonate (RENVELA) 800 mg tablet Take 1 tablet by mouth three times a day with meals. Ordered by dialysis glipiZIDE (GLUCOTROL XL) 5 mg 24 hr tablet Take 10 mg by mouth. Per endocrinology DULoxetine (CYMBALTA) 30 mg capsule Take 1 capsule by mouth once daily. amitriptyline (ELAVIL) 100 mg tablet Take 1 tablet by mouth daily at bedtime. atorvastatin (LIPITOR) 40 mg tablet Take 1 tablet by mouth daily at bedtime. For cholesterol. omeprazole (PRILOSEC) 20 mg capsule Take 1 capsule by mouth once daily. TRULICITY (more content not included)... Normal [facility]06[facility] ---- Margareth GONZALEZ ([id number]) 1965 F Date Time Provider Department 04/06/24 ANAT LOPEZ During your visit today, we recorded the following information about you: Anat Lopez APRN.[facility] 06/06/2024 7:13 AM Addendum Actionable Finding Follow up Patient Name: Margareth Gonzalez eMRN: [id number] : 1965 Patient Preferred PCP: Ignacio Cheatham MD 07/01/2024 in [facility] with IGNACIO CHEATHAM - 6 month follow up Situation: Date of Actionable Finding Scan: 04/03/2023 Type of Imaging: CT chest Actionable Finding(s): Although the majority of the pulmonary nodules, including a 1 cm nodular opacity anteriorly within the right middle lobe, are stable, a few new subcentimeter pulmonary nodules have developed in the interval, measuring up to 4 mm in size. Continued interval surveillance is recommended. Radiologist recommendation: CT chest Chart review summarized: Imaging order actively on file [x] If on file, is imaging scheduled [] Imaging order that needs scheduled: CT chest Reason for imaging: Lung nodules Ordering provider: Dr. Ignacio Cheatham MD [phone] Outreach attempts for Actionable Finding: MYC user active [x] SHEILA outreach MyChart sent 04/06/2024 Outcome: Added to ISN April 2024 last Per our protocol, this Actionable Finding is Closed based on the Final Criterion : Patient completed imaging that qualifies closure of the actionable finding Scheduled-07/27/2024 Anat Lopez APRN.BENEFITS ADMINISTRATOR Actionable Findings [facility] [place] Office: [phone] Allergies As of Date: 04/06/2024 Noted Allergy Reaction VICODIN (HYDROCODONE-ACETAM INOPHE*09/23/2007 11 - Vomiting BALSAM 115 09/23/2007 BALSAM JUAN 09/10/2022 16 - Unknown BARIUM SULFATE 05/01/2023 16 - Unknown BENADRYL ALLERGY DECONGESTANT 05/01/2023 9 - Itching BENADRYL (DIPHENHYDRAMINE HCL) 09/23/2007 2 - Rash 9 - Itching CODEINE 09/23/2007 11 - Vomiting 14 - Other: See Comments LISINOPRIL 05/26/2008 15 - Contraindication-Me dical Cornell* Comments: Acute renal failure MOLD 09/23/2007 NSAIDS (NON-STEROIDAL ANTI-INFLAM* 013 14 - Other: See Comments Comments: Unable to take nsaids after having gastric bypass. PENICILLINS 09/23/2007 10 - Anaphylaxis SEASONAL ALLERGIES 12/14/2008 14 - Other: See Comments Comments: Nose runs, sneezing... TETRACYCLINE 09/23/2007 2 - Rash VANILLA EXTRACT 09/23/2007 VANILLA EXTRACT FLAVOR 09/10/2022 16 - Unknown Date Reviewed: 03/25/2024 Reviewed by: Ada Cheng MA - Fully Assessed Prescriptions as of 08/16/2024 - doxycycline hyclate (VIBRAMYCIN) 100 mg capsule Take 1 capsule by mouth two times a day for 7 days. - ondansetron orally disintegrating (ZOFRAN ODT) 4 mg disintegrating tablet Take 1 tablet by mouth every 8 hours as needed for nausea/vomiting. - CPAP/BIPAP/OTHER APAP 5-20 cmH2O [facility] - Blood-Glucose Meter (ONETOUCH VERIO FLEX METER) Dispense one meter kit. E11.9 - blood sugar diagnostic (ONETOUCH VERIO TEST STRIPS) test strip Checks once per day to calibrate CGM - lancets (U.S. TrailMapsTOUCH DELICA PLUS LANCET) 33 gauge Checks once per day to calibrate CGM E11.9 - Blood-Glucose Sensor (FREESTYLE FESTUS 3 PLUS SENSOR) natty CHANGE SENSOR EVERY 15 days, USE FOR CONTINUOUS GLUCOSE MONITORING. E11.9 DIALYSIS PATIENT - Blood-Glucose Meter,Continuous (FREESTYLE FESTUS 3 READER) misc Dispense one reader kit. E11.9 DIALYSIS PATIENT - dulaglutide (TRULICITY) 0.75 mg/0.5 mL pen injector Inject 0.75 mg subcutaneously one time a week. DX: E11.40 Type 2 DM - pregabalin (LYRICA) 25 mg capsule Take 1 capsule by mouth daily at bedtime for 90 days. - hydrOXYzine HCl (ATARAX) 50 mg tablet Take 1 tablet by mouth every 6 hours as needed for itching/rash. - omeprazole (PRILOSEC) 20 mg capsule Take 1 capsule by mouth once daily. - calcitriol (ROCALTROL) 0.25 mcg capsule 6 pills daily 3X/week -- Per diaylsis - sevelamer carbonate (RENVELA) 800 mg tablet Two tablets by mouth with meals -- Ordered by dialysis - NIFEdipine ER (PROCARDIA XL) 30 mg 24 hr tablet Take 3 tablets by mouth every afternoon. -- per dialysis - DULoxetine (CYMBALTA) 30 mg capsule Take 1 capsule by mouth once daily. - atorvastatin (LIPITOR) 40 mg tablet Take 1 tablet by mouth daily at bedtime. For cholesterol. - acetaminophen (TYLENOL) 500 mg tablet Take 1,000 mg by mouth every 12 hours. - melatonin 5 mg tablet Take 5 mg by mouth. As needed. - cholecalciferol (VITAMIN D3) 5,000 unit tab Take 5,000 Units by mouth twice daily. - Rpyvdonu-Pn-Zwc-Fe- FA ( VITAMIN) ORAL Tab Take 1 tablet by mouth once daily. Meds Comments as of 11/28/2017: Pt states all meds were just gone over. Did not go over meds. Swathi Haddad Ma November 28, 2017 Problem List As Of Date (more content not included)... Normal [facility] 12 Lead EKGon 04-02-2024 12 Lead EKG [facility] Cardiovascular Services [address] [place] [address] 12 Lead EKG 04/02/24 1225 MR#: [id number] Acct: [id number] Name: Margareth GONZALEZ Rep #: [id number] : 1965 58 From: Josef Funk MD Attending Dr: Status: DEP ER Ordering Dr: Tyler Butler CUSTOMS BROKER-C Date: 04/02/24 Location: ED Sex: F C Admitted: Test Reason : NEURO Blood Pressure : */* mmHG Vent. Rate : 93 BPM Atrial Rate : 93 BPM P-R Int : 138 ms QRS Dur : 88 ms QT Int : 402 ms P-R-T Axes : 56 19 68 degrees QTcB Int : 499 ms Normal sinus rhythm Nonspecific T wave abnormality Prolonged QT Abnormal ECG Confirmed by JOSEF FUNK MD ([id number]), rewrite editor LINDA PICKETT ([id number]) on 04/04/2024 8:18:00 AM Referred By: Dave Sanz Confirmed By: JOSEF FUNK MD 04/04/24 0818 Date Josef Funk MD CC: CUSTOMS BROKER-Yonatan Butler; Dr. Dave Sanz DO; Dr. Ignacio Cheatham MD Signed Normal [facility] Brain/Head without Contrasto n 04-02-2024 Brain/Head without Contrast [facility] Imaging Services [address] [place] [address] Brain/Head without Contrast MR#: [id number] Acct: [id number] Name: Margareth GONZALEZ Rep #: [id number] : 1965 F 58 From: Ryan Echevarria MD PCP: Dr. Ignacio Cheatham MD Status: REG ER Study: Brain/Head without Contrast Date of Exam: 03/26 Exam# [id number] Ordering Dr: Tyler Butler EXAM: BRAIN/HEAD WITHOUT CONTRAST CLINICAL HISTORY: Headache COMPARISON: None. TECHNIQUE: Noncontrast images of the head with multiplanar reconstructions. Dose reduction techniques were used including intermediate exposure control (AEC),iterative reconstruction technique, and/or mA and/or KV dose adjustments based on patient's size. FINDINGS: CT HEAD FINDINGS: No acute intracranial hemorrhage, mass, mass effect, midline shift or pathologic extra-axial fluid collection. No hydrocephalus. Age- appropriate cerebral volume and white matter. Visualized paranasal sinuses and mastoid air cells are clear. The calvarium is grossly intact. CT/Brain/Head without Contrast IMPRESSION: No CT evidence of acute intracranial pathology. Reading Location: [facility] CC: REHANA Butler; Dr. Ignacio Cheatham MD Allergist/Md: Signed Normal [facility] CBC W/Diff, Automatedon 02- Absolute Lymph 1.16 X10 3/uL Normal 0.83-4.51 [facility] Comment on above: Performed By: #### L 100.0100, L500.4050 #### [facility] [address] [place], [address] Absolute Neut 2.8 X10 3/uL Normal 2.0-7.7 [facility] Comment on above: Performed By: #### L 100.0100, L500.4050 #### [facility] [address] [place], [address] Basophils/100 WBC (Bld) 0.9 % Normal 0-1 [facility] Comment on above: Performed By: #### L 100.0100, L500.4050 #### [facility] [address] [place], [address] Eosinophils/100 WBC (Bld) 1.8 % Normal 0-5 [facility] Comment on above: Performed By: #### L 100.0100, L500.4050 #### [facility] [address] [place], [address] Erythrocyte distribution width (RBC) [Ratio] 12.5 % Normal 11.6-14.6 [facility] Comment on above: Performed By: #### L 100.0100, L500.4050 #### [facility] [address] [place], [address] Hematocrit (Bld) [Volume fraction] 34.3 % Low 37-47 [facility] Comment on above: Performed By: #### L 100.0100, L500.4050 #### [facility] [address] [place], [address] Hemoglobin (Bld) [Mass/Vol] 11.4 g/dL Low 12.0-15.0 [facility] Comment on above: Performed By: #### L 100.0100, L500.4050 #### [facility] [address] [place], [address] IG% 0.200 Normal 0.0-0.9 [facility] Comment on above: Result Comment: IG% - Immature Granulocytes (promyelocytes, myelocytes and metamyelocytes) > 1% indicates that a LEFT SHIFT is Present. Performed By: #### L 100.0100, L500.4050 #### [facility] [address] [place], [address] Lymphocytes/100 WBC (Bld) 26.5 % Normal 19-41 [facility] Comment on above: Performed By: #### L 100.0100, L500.4050 #### [facility] [address] [place], [address] MCH (RBC) [Entitic mass] 31.1 pg Normal 27.0-32.0 [facility] Comment on above: Performed By: #### L 100.0100, L500.4050 #### [facility] [address] [place], [address] MCHC (RBC) [Mass/Vol] 33.2 g/dL Normal 32-36 [facility] Comment on above: Performed By: #### L 100.0100, L500.4050 #### [facility] [address] [place], [address] MCV (RBC) [Entitic vol] 93.5 fL Normal 81-99 [facility] Comment on above: Performed By: #### L 100.0100, L500.4050 #### [facility] [address] [place], [address] Monocytes/100 WBC (Bld) 6.8 % Normal 0-10 [facility] Comment on above: Performed By: #### L 100.0100, L500.4050 #### [facility] [address] [place], [address] Neutrophils/100 WBC (Bld) 63.8 % Normal 47-70 [facility] Comment on above: Performed By: #### L 100.0100, L500.4050 #### [facility] [address] [place], [address] Nucleated RBC (Bld) [#/Vol] 0 10*3/uL Normal 0-5 [facility] Comment on above: Performed By: #### L 100.0100, L500.4050 #### [facility] [address] [place], [address] Platelet mean volume (Bld) [Entitic vol] 9.7 fL Normal 6.2-12.0 [facility] Comment on above: Performed By: #### L 100.0100, L500.4050 #### [facility] [address] [place], [address] Platelets (Bld) [#/Vol] 182 10*3/uL Normal 150-450 [facility] Comment on above: Performed By: #### L 100.0100, L500.4050 #### [facility] [address] [place], [address] RBC (Bld) [#/Vol] 3.67 10*6/uL Low 4.2-5.4 [facility] Comment on above: Performed By: #### L 100.0100, L500.4050 #### [facility] [address] [place], [address] RDW SD 42.8 fl Normal 35.1-43.9 [facility] Comment on above: Performed By: #### L 100.0100, L500.4050 #### [facility] [address] [place], [address] WBC (Bld) [#/Vol] 4.4 10*3/uL Normal 4.4-11.0 [facility] Comment on above: Performed By: #### L 100.0100, L500.4050 #### [facility] [address] [place], [address] CTA Head AND Neck W/ Contras ton 04-02-2024 CTA Head AND Neck W/ Contrast [facility] Imaging Services [address] [place] [address] CTA Head AND Neck W/ Contrast MR#: [id number] Acct: [id number] Name: Margareth [facility]ZALEZ [facility] Rep #: [id number] : 1965 F 58 From: Ryan Echevarria MD PCP: Dr. Ignacio Cheatham MD Status: REG ER Study: CTA Head AND Neck W/ Contrast Date of Exam: Exam# [id number] Ordering Dr: Tyler Butler CUSTOMS BROKERAnmol PROCEDURE: CTA HEAD AND NECK W/ CONTRAST REASON FOR EXAM: Stroke1 TECHNIQUE: CTA imaging of the head and neck from the aortic arch to the skull vertex with intravenous contrast. 3D reconstructions. CONTRAST: COMPARISON: None. # of known CTs in the past 12 months: 0 # of known Cardiac Nuclear Medicine Studies in the past 12 months: 0 FINDINGS: Aortic Arch: Normal size and branching pattern. No significant atherosclerotic plaque. Brachiocephalic and Subclavians: Unremarkable RIGHT Carotid: Right CCA: Unremarkable. Right ICA: Prominent calcifications. Right ECA: Unremarkable. LEFT Carotid: Left CCA: Unremarkable. Left ICA: Prominent calcifications. Left ECA: Unremarkable. Vertebrals: Codominant. Arise from the subclavians. Both vertebrals form the basilar. RIGHT Vertebral: Unremarkable. LEFT Vertebral: Unremarkable. No intracranial aneurysms or large vascular malformations are identified. Anterior cerebral arteries: Unremarkable. Middle cerebral arteries: Unremarkable. Basilar artery: Unremarkable. Posterior cerebral arteries: Unremarkable. Other major branches of the posterior circulation: Unremarkable. Major venous structures: Unremarkable. Other findings: No lymphadenopathy. Lung apices are clear. Bones are unremarkable. CT/CTA Head AND Neck W/ Contrast IMPRESSION: No large vessel occlusions. Calcifications in the bilateral internal carotid arteries for which outpatient carotid ultrasound is advised for optimal characterization One or more dose reduction techniques were used (e.g., Automated exposure control, adjustment of the mA and/or kV according to patient size, use of iterative reconstruction technique). Reading Location: [facility] CC: REHANA Butler; Dr. Ignacio Cheatham MD Allergist/Md: Signed Normal [facility] Chest 1 View (Portable)on Chest 1 View (Portable) [facility] Imaging Services [address] [place] [id number] Chest 1 View (Portable) MR#: [id number] Acct: [id number] Name: Margareth GONZALEZ Rep #: [id number] : 1965 F 58 From: Ryan Echevarria MD PCP: Dr. Ignacio Cheatham MD Status: REG ER Study: Chest 1 View (Portable) Date of Exam: 04/02/24 Exam# [id number] Ordering Dr: Tyler Butler CUSTOMS BROKER-Yonatan PROCEDURE: CHEST 1 VIEW (PORTABLE) REASON FOR EXAM: Cough TECHNIQUE: Single frontal image including the chest and abdomen. COMPARISON: None. FINDINGS: The cardiothymic contour is normal. The lungs are clear. Bowel gas pattern is normal. No evidence of bowel obstruction or free air. The bones are unremarkable. No radiopaque foreign body is identified. RAD/Chest 1 View (Portable) IMPRESSION: UNREMARKABLE SINGLE VIEW OF THE CHEST AND ABDOMEN. Reading Location: [facility] CC: CUSTOMS BROKER-C Tyler Butler; Dr. Ignacio Cheatham MD Allergist/Md: Signed Normal [facility] Comprehensive Metabolic Prof ilon 04-02-2024 Albumin [Mass/Vol] 3.2 g/dL Normal 3.2-5.0 [facility] Comment on above: Performed By: #### L 100.0100, L500.4050 #### [facility] [address] [facility] [place], [address] Albumin/Globulin [Mass ratio] 0.9 {ratio} Normal 0.9-2.4 [facility] Comment on above: Performed By: #### L 100.0100, L500.4050 #### [facility] [address] [place], [address] ALK P 94 U/L Normal 45-117 [facility] Comment on above: Performed By: #### L 100.0100, L500.4050 #### [facility] [address] [place], [address] ALT [Catalytic activity/Vol] 19 U/L Normal 13-56 [facility] Comment on above: Performed By: #### L 100.0100, L500.4050 #### [facility] [address] [place], [address] AST [Catalytic activity/Vol] 22 U/L Normal 15-37 [facility] Comment on above: Performed By: #### L 100.0100, L500.4050 #### [facility] [address] [place], [address] Bilirubin [Mass/Vol] 0.50 mg/dL Normal 0.20-1.00 [facility] Comment on above: Result Comment: For patients on eltrombopag therapy, use of Dimension [place] TBIL is not recommended. Performed By: #### L 100.0100, L500.4050 #### [facility] [address] [place], [address] BUN/CRE 3.9 RATIO Low 10-20 [facility] Comment on above: Performed By: #### L 100.0100, L500.4050 #### [facility] [address] [place], [address] CA,Total 8.5 mg/dL Normal 8.5-10.1 [facility] Comment on above: Performed By: #### L 100.0100, L500.4050 #### [facility] [address] [place], [address] Chloride [Moles/Vol] 96 mmol/L Low 98-107 [facility] Comment on above: Performed By: #### L 100.0100, L500.4050 #### [facility] [address] [place], [address] CO2 [Moles/Vol] 29.0 mmol/L Normal 21.0-32.0 [facility] Comment on above: Performed By: #### L 100.0100, L500.4050 #### [facility] [address] [place], [address] Creatinine [Mass/Vol] 2.57 mg/dL High 0.55-1.02 [facility] Comment on above: Result Comment: The validity of the calculated GFR GFRAA in patients over 70 years has not been determined. Clinical correlation is essential. Performed By: #### L 100.0100, L500.4050 #### [facility] [address] [place], [address] ECRCL 28.12 ml/min Normal [facility] Comment on above: Performed By: #### L 100.0100, L500.4050 #### [facility] [address] [place], [address] EST GFR - AA 25 mL/min Low >60 [facility] Comment on above: Result Comment: Afri can Singaporean GFR Calc Performed By: #### L 100.0100, L500.4050 #### [facility] [address] [place], [address] GAP 10 Normal 5-15 [facility] Comment on above: Performed By: #### L 100.0100, L500.4050 #### [facility] [address] [place], [address] GFR/1.73 sq M.predicted among non-blacks MDRD (S/P/Bld) [Vol rate/Area] 20 mL/min/{1.73_m2} Low >60 [facility] Comment on above: Result Comment: Non- GFR Calc Performed By: #### L 100.0100, L500.4050 #### [facility] [address] [place], [address] Globulin (S) [Mass/Vol] 3.7 g/dL Normal 2.2-4.2 [facility] Comment on above: Performed By: #### L 100.0100, L500.4050 #### [facility] [address] [place], [address] Glucose [Mass/Vol] 248 mg/dL High 74-106 [facility] Comment on above: Result Comment: Gluc ose result greater than or equal to 200 mg/dL suggests DIABETES MELLITUS per A.D.A. criteria. Performed By: #### L 100.0100, L500.4050 #### [facility] [address] [place], [address] Potassium [Moles/Vol] 3.3 mmol/L Low 3.5-5.1 [facility] Comment on above: Performed By: #### L 100.0100, L500.4050 #### [facility] [address] [place], [address] Sodium [Moles/Vol] 134 mmol/L Low 136-145 [facility] Comment on above: Performed By: #### L 100.0100, L500.4050 #### [facility] [address] [place], [address] T PROT 6.9 g/dL Normal 6.4-8.2 [facility] Comment on above: Performed By: #### L 100.0100, L500.4050 #### [facility] [address] [place], [address] Urea nitrogen [Mass/Vol] 10 mg/dL Normal 7-18 [facility] Comment on above: Performed By: #### L 100.0100, L500.4050 #### [facility] [address] [place], [address] Emergency Department Summary on 04-02-2024 Emergency Department Summary [facility] Medical Records Department [address] [place] [address] Emergency Department Summary 04/02/24 MR#: [id number] Acct: [id number] Name: Margareth GONZALEZ Rep #: [id number] : 1965 58 From: Tyler KIMBALL PCP: Dr. Ignacio Cheatham MD Status:DEP ER Location: ED Patient was seen and examined with nurse practitioner Tyler All components of the history and physical confirmed and agreed. History of present illness and physical exam: Patient is a 58-year-old female past medical history of end-stage renal disease on dialysis Thursday, , Thursday, TIA, COPD, type 2 diabetes, GERD, CASSIE, bipolar disorder, fibromyalgia she describes, hypertension who presented to the emergency department with a chief complaint of numbness and tingling in her arms bilaterally as well as noted facial droop. She states that this all occurred at the end of her dialysis the nurse noted that his symptoms. They noted that her blood pressure was 80/50 when this occurred. She did improve at the dialysis center and was sent home states that she went to [facility] was doing some shopping and she felt like she had another attack of bilateral arm numbness and tingling therefore she came here for the valuation management. States that she feels back to baseline at this point time and has no complaints. Patient was just recently discharged from the hospital on March 18, 2023 for a very similar presentation. Review of systems: Agree with above Physical exam: Agree with above will add patient completed finger-nose and zvdv-to-laoe test bilaterally without any difficulty NIH of 0 GCS 15 MDM Patient is a 58-year-old female who presents to the emergency department with a chief complaint of hypotension with associated bilateral arm tingling, facial droop at the end of her dialysis session which just also recently occurred and she had a recent hospital admission. Patient currently is on aspirin and statin states that she has been compliant with her medications not missing doses. On the differential diagnose includes but not limited to hypertension, TIA, electrolyte abnormality, hypoglycemia. Once workup is obtained reviewed she will be reevaluated. Patient's records from recent hospitalization on March 17, 2024 were reviewed and at that point time she had MRI of the brain which was negative for any acute infarct. CTA of the head and neck showed no significant stenosis or thrombosis aneurysm or dissection. Echo showed the LA was mildly enlarged bubble study was negative for PFO/ASD. Patient was ultimately discharged home. They continued her current medication regimen. Today patient CBC reviewed and was largely unremarkable white blood cell count normal at 4.4, hemoglobin 11.4, platelet count was noted be normal at 182. Patient sodium was 134, potassium normal at 3.3, creatinine was 2.57 she does have underlying chronic kidney disease is on dialysis, AST and ALT were 22 and [address] head and brain showed no acute intracranial pathology. Patient CTA head and neck showed no large vessel occlusion. Calcifications in the bilateral internal carotid arteries were noted which can be followed up on in the outpatient setting per radiology. Patient chest x-ray reviewed by myself by radiology showed no acute cardiopulmonary processes. Patient's EKG reviewed and independently interpreted by myself showed sinus rhythm with a rate of 93 bpm. On reevaluation of the patient she is resting comfortably in bed she had no further episodes of hypotension here in the emergency department. Patient did test negative for COVID flu and RSV. Tyler did discuss case with hospitalist given her recent admission and believes that she is stable for discharge and has no further recommendations and was likely secondary related to her hypotension during her dialysis session. Patient was advised to follow-up with her paper cutter as well as her primary care physician and return with worsening symptoms or concerns. She is agreeable this plan all question concerns answered she was discharged home in stable condition. Final impression: Bilateral arm numbness and tingling Chronic kidney disease on dialysis Hypotension resolved Disposition: Patient will be discharged home in stable condition Supervising attending attestation: Dave MAYORGA History of Present Illness Chief Complaint: Neuro S/Sx Narrative Narrative: Patient is a 58-year-old female with history of end-stage renal disease on dialysis Thursday, , Thursday, history of TIAs, presenting to the emergency department for neurological complai nts. Patient states towards the end of her dialysis treatment today, both of her arms felt numbness and tingling, she then had some facial droop, she also states that her blood pressure dropped to 80/50. This happened approximate (more content not included)... Normal [facility] M100.678on 04-02-2024 M100.678 Pending SARS-CoV-2 (COVID 19) Negative INFLUENZA A Negative INFLUENZA B Negative RSV PCR Negative Normal [facility] Comment on above: Performed By: #### M 100.178 ####[facility] [address] [place], [address] [facility] 03-30-2024 [facility] Telephone ([facility]) ---- Margareth GONZALEZH ([id number]) 1965 F LV Date Time Provider Department 03/30/24 IGNACIO CHEATHAM During your visit today, we recorded the following information about you: Fabiola Jesus RN 03/30/2024 11:04 AM Signed Patient calls and states that she had talked to Dr. Hill regarding medication. Patient states that Dr. Hill told her that Cymbalta 30 mg would be ok for her to take with her kidney issues. GRACE Wilson William J, MD 03/30/2024 11:18 AM Signed It was previously sent in. Does she need new script? Kiki Colin MA 03/30/2024 1:23 PM Signed Left message for patient to contact office. ALANA Baca Lisa, MA 04/08/2024 10:20 AM Signed Phone number has calling restrictions that prevents the completion of call.Closing encounter Efra Box MA April 08, 2024 10:20 AM Allergies As of Date: 03/30/2024 Noted Allergy Reaction VICODIN (HYDROCODONE-ACETAM INOPHE*09/23/2007 11 - Vomiting BALSAM 115 09/23/2007 BALSAM JUAN 09/10/2022 16 - Unknown BARIUM SULFATE 05/01/2023 16 - Unknown BENADRYL ALLERGY DECONGESTANT 05/01/2023 9 - Itching BENADRYL (DIPHENHYDRAMINE HCL) 09/23/2007 2 - Rash 9 - Itching CODEINE 09/23/2007 11 - Vomiting 14 - Other: See Comments LISINOPRIL 05/26/2008 15 - Contraindication-Me dical Cornell* Comments: Acute renal failure MOLD 09/23/2007 NSAIDS (NON-STEROIDAL ANTI-INFLAM* 013 14 - Other: See Comments Comments: Unable to take nsaids after having gastric bypass. PENICILLINS 09/23/2007 10 - Anaphylaxis SEASONAL ALLERGIES 12/14/2008 14 - Other: See Comments Comments: Nose runs, sneezing... TETRACYCLINE 09/23/2007 2 - Rash VANILLA EXTRACT 09/23/2007 VANILLA EXTRACT FLAVOR 09/10/2022 16 - Unknown Date Reviewed: 03/25/2024 Reviewed by: Ada Cheng MA - Fully Assessed Reason for Visit: Patient Update [1234] Prescriptions as of 04/08/2024 - hydrOXYzine pamoate (VISTARIL) 25 mg capsule Take 1 capsule by mouth at bedtime as needed. - ondansetron orally disintegrating (ZOFRAN ODT) 4 mg disintegrating tablet Take 1 tablet by mouth every 8 hours as needed for nausea/vomiting. - hydrOXYzine HCl (ATARAX) 50 mg tablet Take 1 tablet by mouth every 6 hours as needed for itching/rash. - NIFEdipine ER (PROCARDIA XL) 30 mg 24 hr tablet Take 1 tablet by mouth every afternoon. - sevelamer carbonate (RENVELA) 800 mg tablet Take 1 tablet by mouth three times a day with meals. Ordered by dialysis - glipiZIDE (GLUCOTROL XL) 5 mg 24 hr tablet Take 10 mg by mouth. Per endocrinology - DULoxetine (CYMBALTA) 30 mg capsule Take 1 capsule by mouth once daily. - amitriptyline (ELAVIL) 100 mg tablet Take 1 tablet by mouth daily at bedtime. - atorvastatin (LIPITOR) 40 mg tablet Take 1 tablet by mouth daily at bedtime. For cholesterol. - omeprazole (PRILOSEC) 20 mg capsule Take 1 capsule by mouth once daily. - sertraline (ZOLOFT) 50 mg tablet Take 1 tablet by mouth once daily. - TRULICITY 1.5 mg/0.5 mL pen injector INJECT 1.5 MG UNDER THE SKIN ONCE A WEEK - acetaminophen (TYLENOL) 500 mg tablet Take 1,000 mg by mouth every 12 hours. - calcitriol (ROCALTROL) 0.25 mcg capsule Take 0.25 mcg by mouth once daily. Per diaylsis - melatonin 5 mg tablet Take 5 mg by mouth. As needed. - flash glucose scanning reader (SimpleReachSTYLE FESTUS 2 READER) Use to check glucose 3 times daily and continuously. 1 per year. - flash glucose sensor (FREESTYLE FESTUS 2 SENSOR) kit Use to check glucose 3 times daily and continuously. Change every 14 days. 6 per 90 day supply. - cholecalciferol (VITAMIN D3) 5,000 unit tab Take 5,000 Units by mouth twice daily. - aspirin, enteric coated (ADULT LOW DOSE ASPIRIN) 81 mg EC tablet Take 1 tablet by mouth once daily. - Avnkdzfc-Up-Ixi-Fe- FA ( VITAMIN) ORAL Tab Take 1 tablet by mouth once daily. Meds Comments as of 11/28/2017: Pt states all meds were just gone over. Did not go over meds. Swathi Haddad Ma November 28, 2017 Problem List As Of Date 03/30/2024 Noted Resolved Acute gastritis [K29.00] 12/16/2007 08/04/2022 DM w/o complication type II, uncontrolled [IMO0*03/09/2008 12/07/2014 Routine gynecological examination [Z01.419] 03/09/2008 04/16/2017 Class: Chronic OBESITY NOS [E66.9] 03/09/2008 Acute anemia [D64.9] 03/09/2008 Background diabetic retinopathy (HCC) [E11.3299] 9 Asthma [J45.909] 03/09/2008 DIABETIC FOOT ULCER [L97.509] 03/09/2008 04/16/2017 CHOLELITHIASIS NOS [K80.20] 03/09/2008 Bipolar disorder, unspecified (HCC) [F31.9] 03/09/2008 Essential hypertension, benign [I10] 03/27/2008 03/16/2015 Primary hypertension [I10] Type 2 diabetes mellitus with stage 4 chronic k* Pain in limb [M79.609] 06/29/2008 02/21/2019 Dermatophytosis of nail [B35.1] 06/29/2008 04/20/2020 Corns and callosities [L84] 06/29/2008 04/16/2017 Unspecified Ir (more content not included)... Normal [facility] CNOVon 03-25-2024 CNOV Office Visit (FAMPWS) ---- Margareth GONZALEZ ARNOLD ([id number]) 1965 F Date Time Provider Department 03/25/24 11:00 AM IGNACIO CHEATHAM During your visit today, we recorded the following information about you: Pulse Blood pressure Weight Height 96/minute 186/84 85.9 kg 1.727 m Ignacio Cheatham MD 03/25/2024 11:30 AM Signed Patient presents with: Hospital F/U HPI: Patient presents today for office visit for HOSPITAL/ER FOLLOW UP: Reason for visit: concerns of TIA. Left hand numbness, some slurred speech, and facial droop during dialysis. Symptoms resolved upon arrival to ER. Admitted for observation. Which facility: [facility] Date of visit: 03/17/24-03/18/24 Diagnosis: numbness Testing done: CTA, MRI, ECHO and labs. Treatment given: Tylenol Current symptoms: headaches Symptoms only lasted a half an hour. She wonders if it could have been related to recent fall. Has some head soreness where the fall was which was before the tia but her scan was ok. No changes in meds. They had referred her to follow with neurology. She would prefer to see a F neurologist. Is on a statin and asa a day. Having increased issues with her spinal stenosis. Last had MRI in 2022. Has been leapfrogging her meds due to cost. Had labs ordered which have . MEDICATIONS: Current Outpatient Medications Medication Sig hydrOXYzine HCl (ATARAX) 50 mg tablet Take 1 tablet by mouth every 6 hours as needed for itching/rash. ondansetron orally disintegrating (ZOFRAN ODT) 4 mg disintegrating tablet Take 1 tablet by mouth every 8 hours as needed for nausea/vomiting. NIFEdipine ER (PROCARDIA XL) 30 mg 24 hr tablet Take 1 tablet by mouth every afternoon. sevelamer carbonate (RENVELA) 800 mg tablet Take 1 tablet by mouth three times a day with meals. Ordered by dialysis glipiZIDE (GLUCOTROL XL) 5 mg 24 hr tablet Take 10 mg by mouth. Per endocrinology DULoxetine (CYMBALTA) 30 mg capsule Take 1 capsule by mouth once daily. amitriptyline (ELAVIL) 100 mg tablet Take 1 tablet by mouth daily at bedtime. atorvastatin (LIPITOR) 40 mg tablet Take 1 tablet by mouth daily at bedtime. For cholesterol. omeprazole (PRILOSEC) 20 mg capsule Take 1 capsule by mouth once daily. sertraline (ZOLOFT) 50 mg tablet Take 1 tablet by mouth once daily. TRULICITY 1.5 mg/0.5 mL pen injector INJECT 1.5 MG UNDER THE SKIN ONCE A WEEK acetaminophen (TYLENOL) 500 mg tablet Take 1,000 mg by mouth every 12 hours. calcitriol (ROCALTROL) 0.25 mcg capsule Take 0.25 mcg by mouth once daily. Per diaylsis melatonin 5 mg tablet Take 5 mg by mouth. As needed. flash glucose scanning reader (SimpleReachSTYLE FESTUS 2 READER) Use to check glucose 3 times daily and continuously. 1 per year. flash glucose sensor (FREESTYLE FESUTS 2 SENSOR) kit Use to check glucose 3 times daily and continuously. Change every 14 days. 6 per 90 day supply. cholecalciferol (VITAMIN D3) 5,000 unit tab Take 5,000 Units by mouth twice daily. aspirin, enteric coated (ADULT LOW DOSE ASPIRIN) 81 mg EC tablet Take 1 tablet by mouth once daily. (Patient taking differently: Take 81 mg by mouth every morning.) Gjteilre-Cw-Oja-Fe- FA ( VITAMIN) ORAL Tab Take 1 tablet by mouth once daily. No current facility-administer ed medications for this visit. ALLERGIES: ALLERGIES Allergen Reactions Vicodin [Hydrocodon* Vomiting Balsam 115 Balsam Juan Unknown Barium Sulfate Unknown Benadryl Allergy De* Itching Benadryl [Diphenhyd* Rash, Itching Codeine Vomiting, Other: See Comments Lisinopril Contraindication-Me dical Surgical Acute renal failure Mold Nsaids (Non-Steroid* Other: See Comments Unable to take nsaids after having gastric bypass. Penicillins Anaphylaxis Seasonal Allergies Other: See Comments Nose runs, sneezing... Tetracycline Rash Vanilla Extract Vanilla Extract Fla* Unknown PAST MEDICAL HISTORY Diagnosis Date Acute gastritis without mention of hemorrhage Allergic rhinitis Anaphylaxis Anemia Back pain Benign essential tremor Bipolar I disorder, most recent episode (or current) unspecified sectrum Bone mass Candidiasis, intertrigo Chronic kidney disease Contraceptive management Depression Diabetes (HCC) Diarrhea DVT, lower extremity (HCC) 08/2014 Right leg (6) Esophagitis ESRD (end stage renal disease) ([facility]) 07/03/2022 Facial fracture due to fall ([facility]) ([facility]) Fatigue Fibromyalgia Fracture Fracture of shaft of fibula GERD (gastroesophageal reflux disease) HLD (hyperlipidemia) on tricor Hyperlipidemia Hypertension Hypomagnesemia Hypopotassemia IBS (irritable bowel syndrome) Insomnia Intertrigo Knee pain Morbid obesity ([facility]) 03/11/2011 Myalgia Nausea Neck pain Neuropathy Nocturnal leg cramps Non-cardiac chest pain Obesity CASSIE (obstructive sleep apnea) 07/08/2011 Other polyp of si (more content not included)... Normal [facility] CNPNon 03-23-2024 CNPN Telephone (FAMPWS) ---- Margareth GONZALEZ ([id number]) 1965 F Date Time Provider Department 03/23/24 IGNACIO CHEATHAM [facility] During your visit today, we recorded the following information about you: Georgina Salmon RN 03/23/2024 1:55 PM Signed Elenita with [facility] calling and states she will be faxing over forms regarding a Medicaid Program for patient. Please add ICD codes to form, and then fax form back to number provided. For any questions, Call Elenita at [phone] GRACE Leums Brittany L, MA 03/28/2024 2:46 PM Signed 03/28-Attempted to contact Elenita at [facility]. Recording states out of office until 04/04. Left detailed message on identified VM advising to refax form to provider office. June Heath MA Allergies As of Date: 03/23/2024 Noted Allergy Reaction VICODIN (HYDROCODONE-ACETAM INOPHE*09/23/2007 11 - Vomiting BALSAM 115 09/23/2007 BALSAM JUAN 09/10/2022 16 - Unknown BARIUM SULFATE 05/01/2023 16 - Unknown BENADRYL ALLERGY DECONGESTANT 05/01/2023 9 - Itching BENADRYL (DIPHENHYDRAMINE HCL) 09/23/2007 2 - Rash 9 - Itching CODEINE 09/23/2007 11 - Vomiting 14 - Other: See Comments LISINOPRIL 05/26/2008 15 - Contraindication-Me dical Cornell* Comments: Acute renal failure MOLD 09/23/2007 NSAIDS (NON-STEROIDAL ANTI-INFLAM* 013 14 - Other: See Comments Comments: Unable to take nsaids after having gastric bypass. PENICILLINS 09/23/2007 10 - Anaphylaxis SEASONAL ALLERGIES 12/14/2008 14 - Other: See Comments Comments: Nose runs, sneezing... TETRACYCLINE 09/23/2007 2 - Rash VANILLA EXTRACT 09/23/2007 VANILLA EXTRACT FLAVOR 09/10/2022 16 - Unknown Date Reviewed: 02/09/2024 Reviewed by: Maria Eugenia Palencia OCCA - Fully Assessed Reason for Visit: Medicaid Program Form [Other] Prescriptions as of 04/08/2024 - hydrOXYzine pamoate (VISTARIL) 25 mg capsule Take 1 capsule by mouth at bedtime as needed. - ondansetron orally disintegrating (ZOFRAN ODT) 4 mg disintegrating tablet Take 1 tablet by mouth every 8 hours as needed for nausea/vomiting. - hydrOXYzine HCl (ATARAX) 50 mg tablet Take 1 tablet by mouth every 6 hours as needed for itching/rash. - NIFEdipine ER (PROCARDIA XL) 30 mg 24 hr tablet Take 1 tablet by mouth every afternoon. - sevelamer carbonate (RENVELA) 800 mg tablet Take 1 tablet by mouth three times a day with meals. Ordered by dialysis - glipiZIDE (GLUCOTROL XL) 5 mg 24 hr tablet Take 10 mg by mouth. Per endocrinology - DULoxetine (CYMBALTA) 30 mg capsule Take 1 capsule by mouth once daily. - amitriptyline (ELAVIL) 100 mg tablet Take 1 tablet by mouth daily at bedtime. - atorvastatin (LIPITOR) 40 mg tablet Take 1 tablet by mouth daily at bedtime. For cholesterol. - omeprazole (PRILOSEC) 20 mg capsule Take 1 capsule by mouth once daily. - sertraline (ZOLOFT) 50 mg tablet Take 1 tablet by mouth once daily. - TRULICITY 1.5 mg/0.5 mL pen injector INJECT 1.5 MG UNDER THE SKIN ONCE A WEEK - acetaminophen (TYLENOL) 500 mg tablet Take 1,000 mg by mouth every 12 hours. - calcitriol (ROCALTROL) 0.25 mcg capsule Take 0.25 mcg by mouth once daily. Per diaylsis - melatonin 5 mg tablet Take 5 mg by mouth. As needed. - flash glucose scanning reader (SimpleReachSTYLE FESTUS 2 READER) Use to check glucose 3 times daily and continuously. 1 per year. - flash glucose sensor (FREESTYLE FESTUS 2 SENSOR) kit Use to check glucose 3 times daily and continuously. Change every 14 days. 6 per 90 day supply. - cholecalciferol (VITAMIN D3) 5,000 unit tab Take 5,000 Units by mouth twice daily. - aspirin, enteric coated (ADULT LOW DOSE ASPIRIN) 81 mg EC tablet Take 1 tablet by mouth once daily. - Etjefnhp-An-Nkz-Fe- FA ( VITAMIN) ORAL Tab Take 1 tablet by mouth once daily. Meds Comments as of 11/28/2017: Pt states all meds were just gone over. Did not go over meds. Swathi Haddad Ma November 28, 2017 Problem List As Of Date 03/23/2024 Noted Resolved Acute gastritis [K29.00] 12/16/2007 08/04/2022 DM w/o complication type II, uncontrolled [IMO0*03/09/2008 12/07/2014 Routine gynecological examination [Z01.419] 03/09/2008 04/16/2017 Class: Chronic OBESITY NOS [E66.9] 03/09/2008 Acute anemia [D64.9] 03/09/2008 Background diabetic retinopathy (HCC) [E11.3299] 9 Asthma [J45.909] 03/09/2008 DIABETIC FOOT ULCER [L97.509] 03/09/2008 04/16/2017 CHOLELITHIASIS NOS [K80.20] 03/09/2008 Bipolar disorder, unspecified (HCC) [F31.9] 03/09/2008 Essential hypertension, benign [I10] 03/27/2008 03/16/2015 Primary hypertension [I10] Type 2 diabetes mellitus with stage 4 chronic k* Pain in limb [M79.609] 06/29/2008 02/21/2019 Dermatophytosis of nail [B35.1] 06/29/2008 04/20/2020 Corns and callosities [L84] 06/29/2008 04/16/2017 Unspecified Iron Deficiency Anemia [D50.9] 09/21/2008 EDEMA [R60.9] 09/21/2008 Ulcer of heel and midf (more content not included)... Normal [facility] Glucoseon 03-19-2024 FINGERSTICK GLU 282 mg/dL High 74-106 [facility] Comment on above: Result Comment: SONJA VARGAS OF PATIENT CARE PER NURSING PROTOCOL Performed By: #### L 501.080 ####[facility] [id number] [place], [address] Basic Metabolic Profile (BMP )on 03-18-2024 BUN/CRE 5.4 RATIO Low 10-20 [facility] Comment on above: Order Comment: Comme nts: NPO at [place] prior to lipid panel Performed By: #### L 500.2500, L100.0100, L500.4100 #### [facility] [address] [place], [address] CA,Total 9.2 mg/dL Normal 8.5-10.1 [facility] Comment on above: Order Comment: Comme nts: NPO at DC prior to lipid panel Performed By: #### L 500.2500, L100.0100, L500.4100 #### [facility] [address] [place], [address] Chloride [Moles/Vol] 95 mmol/L Low 98-107 [facility] Comment on above: Order Comment: Comme nts: NPO at DC prior to lipid panel Performed By: #### L 500.2500, L100.0100, L500.4100 #### [facility] [address] [place], [address] CO2 [Moles/Vol] 28.0 mmol/L Normal 21.0-32.0 [facility] Comment on above: Order Comment: Comme nts: NPO at [place] prior to lipid panel Performed By: #### L 500.2500, L100.0100, L500.4100 #### [facility] [address] [place], [address] Creatinine [Mass/Vol] 3.89 mg/dL High 0.55-1.02 [facility] Comment on above: Order Comment: Comme nts: NPO at [place] prior to lipid panel Result Comment: The validity of the calculated GFR GFRAA in patients over 70 years has not been determined. Clinical correlation is essential. Performed By: #### L 500.2500, L100.0100, L500.4100 #### [facility] [address] [place], [address] ECRCL 18.12 ml/min Normal [facility] Comment on above: Order Comment: Comme nts: NPO at MN prior to lipid panel Performed By: #### L 500.2500, L100.0100, L500.4100 #### [facility] [address] [place], [address] EST GFR - AA 15 mL/min Low >60 [facility] Comment on above: Order Comment: Comme nts: NPO at MN prior to lipid panel Result Comment: Afri can Singaporean GFR Calc Performed By: #### L 500.2500, L100.0100, L500.4100 #### [facility] [address] [place], [address] GAP 10 Normal 5-15 [facility] Comment on above: Order Comment: Comme nts: NPO at MN prior to lipid panel Performed By: #### L 500.2500, L100.0100, L500.4100 #### [facility] [address] [place], [address] GFR/1.73 sq M.predicted among non-blacks MDRD (S/P/Bld) [Vol rate/Area] 13 mL/min/{1.73_m2} Low >60 [facility] Comment on above: Order Comment: Comme nts: NPO at MN prior to lipid panel Result Comment: Non- GFR Calc Performed By: #### L 500.2500, L100.0100, L500.4100 #### [facility] [address] [place], [address] Glucose [Mass/Vol] 288 mg/dL High 74-106 [facility] Comment on above: Order Comment: Comme nts: NPO at MN prior to lipid panel Result Comment: Gluc ose result greater than or equal to 200 mg/dL suggests DIABETES MELLITUS per A.D.A. criteria. Performed By: #### L 500.2500, L100.0100, L500.4100 #### [facility] [address] [place], [address] Potassium [Moles/Vol] 4.3 mmol/L Normal 3.5-5.1 [facility] Comment on above: Order Comment: Comme nts: NPO at MN prior to lipid panel Performed By: #### L 500.2500, L100.0100, L500.4100 #### [facility] [address] [place], [address] Sodium [Moles/Vol] 133 mmol/L Low 136-145 [facility] Comment on above: Order Comment: Comme nts: NPO at MN prior to lipid panel Performed By: #### L 500.2500, L100.0100, L500.4100 #### [facility] [address] [place], [address] Urea nitrogen [Mass/Vol] 21 mg/dL High 7-18 [facility] Comment on above: Order Comment: Comme nts: NPO at MN prior to lipid panel Performed By: #### L 500.2500, L100.0100, L500.4100 #### [facility] [address] [place], [address] Bedside Glucoseon 03-18-2024 FINGERSTICK GLU 138 mg/dL High 74-106 [facility] Comment on above: Result Comment: SONJA VARGAS OF PATIENT CARE PER NURSING PROTOCOL Performed By: #### L 100.0100, L500.4050 #### [facility] [address] [place], [address] CBC W/Diff, Automatedon 03-02 Absolute Lymph 1.51 X10 3/uL Normal 0.83-4.51 [facility] Comment on above: Performed By: #### L 500.2500, L100.0100, L500.4100 #### [facility] [address] [place], [address] Absolute Neut 3.0 X10 3/uL Normal 2.0-7.7 [facility] Comment on above: Performed By: #### L 500.2500, L100.0100, L500.4100 #### [facility] [address] [place], [address] Basophils/100 WBC (Bld) 1.0 % Normal 0-1 [facility] Comment on above: Performed By: #### L 500.2500, L100.0100, L500.4100 #### [facility] [address] [place], [address] Eosinophils/100 WBC (Bld) 2.3 % Normal 0-5 [facility] Comment on above: Performed By: #### L 500.2500, L100.0100, L500.4100 #### [facility] [address] [place], [address] Erythrocyte distribution width (RBC) [Ratio] 12.4 % Normal 11.6-14.6 [facility] Comment on above: Performed By: #### L 500.2500, L100.0100, L500.4100 #### [facility] [address] [place], [address] Hematocrit (Bld) [Volume fraction] 33.2 % Low 37-47 [facility] Comment on above: Performed By: #### L 500.2500, L100.0100, L500.4100 #### [facility] [address] [place], [address] Hemoglobin (Bld) [Mass/Vol] 10.8 g/dL Low 12.0-15.0 [facility] Comment on above: Performed By: #### L 500.2500, L100.0100, L500.4100 #### [facility] [address] [place], [address] IG% 0.400 Normal 0.0-0.9 [facility] Comment on above: Result Comment: IG% - Immature Granulocytes (promyelocytes, myelocytes and metamyelocytes) > 1% indicates that a LEFT SHIFT is Present. Performed By: #### L 500.2500, L100.0100, L500.4100 #### [facility] [address] [place], [address] Lymphocytes/100 WBC (Bld) 29.4 % Normal 19-41 [facility] Comment on above: Performed By: #### L 500.2500, L100.0100, L500.4100 #### [facility] [address] [place], [address] MCH (RBC) [Entitic mass] 31.9 pg Normal 27.0-32.0 [facility] Comment on above: Performed By: #### L 500.2500, L100.0100, L500.4100 #### [facility] [address] [place], [address] MCHC (RBC) [Mass/Vol] 32.5 g/dL Normal 32-36 [facility] Comment on above: Performed By: #### L 500.2500, L100.0100, L500.4100 #### [facility] [address] [place], [address] MCV (RBC) [Entitic vol] 97.9 fL Normal 81-99 [facility] Comment on above: Performed By: #### L 500.2500, L100.0100, L500.4100 #### [facility] [address] [place], [address] Monocytes/100 WBC (Bld) 8.6 % Normal 0-10 [facility] Comment on above: Performed By: #### L 500.2500, L100.0100, L500.4100 #### [facility] [address] [place], [address] Neutrophils/100 WBC (Bld) 58.3 % Normal 47-70 [facility] Comment on above: Performed By: #### L 500.2500, L100.0100, L500.4100 #### [facility] [address] [place], [address] Nucleated RBC (Bld) [#/Vol] 0 10*3/uL Normal 0-5 [facility] Comment on above: Performed By: #### L 500.2500, L100.0100, L500.4100 #### [facility] [address] [place], [address] Platelet mean volume (Bld) [Entitic vol] 9.8 fL Normal 6.2-12.0 [facility] Comment on above: Performed By: #### L 500.2500, L100.0100, L500.4100 #### [facility] [address] [place], [address] Platelets (Bld) [#/Vol] 193 10*3/uL Normal 150-450 [facility] Comment on above: Performed By: #### L 500.2500, L100.0100, L500.4100 #### [facility] [address] [place], [address] RBC (Bld) [#/Vol] 3.39 10*6/uL Low 4.2-5.4 [facility] Comment on above: Performed By: #### L 500.2500, L100.0100, L500.4100 #### [facility] [address] [place], [address] RDW SD 44.0 fl High 35.1-43.9 [facility] Comment on above: Performed By: #### L 500.2500, L100.0100, L500.4100 #### [facility] [address] [place], [address] WBC (Bld) [#/Vol] 5.1 10*3/uL Normal 4.4-11.0 [facility] Comment on above: Performed By: #### L 500.2500, L100.0100, L500.4100 #### [facility] [address] [place], [address] Discharge Instructionon 03-02 Discharge Instruction [facility] Medical Records Department [address] [place] [address] Instructions for Home/Discharge Instructions 03/18/24 1031 MR#: [id number] Acct: [id number] Name: Margareth GONZALEZ Rep #: [id number] : 1965 58 From: Branden Banks MD PCP: Dr. Ignacio Cheatham MD Status:ADM CHRISTA Discharge Instructions DC O2, CPAP, BIPAP needs Home O2 Discharge instructions: No Follow Up Care Test Results: Test results from this visit will be discussed in further detail at your follow-up appointment, if applicable. Discharge Plan Admission Admit Date/Time: 03/17/24 14:02 Attending Provider: Branden Banks Primary Care Provider: Ignacio Cheatham Consulting Providers: Hipolito Shepard; Cristal Blanchard Discharge Orders/Prescription s Prescriptions: Continued cholecalciferol (vitamin D3) [Vitamin D3] 1,000 UNIT capsule 5,000 unit PO DAILY omeprazole 20 MG capsule 20 mg PO DAILY glipizide 5 MG tablet 10 mg PO DAILY Patient Comments: per pt hasn't taken in approx 2 months r/t insurance issues being unable to afford. melatonin 5 MG capsule 10 mg PO QHS atorvastatin 40 mg tablet 40 mg PO QHS calcitriol 0.25 mcg capsule 1.5 mcg PO .TuThursSat Patient Comments: 6 capsules per pt on days of dialysis Trulicity 1.5 mg/0.5 mL pen injector 1.5 mg SUBCUT CORNELL Patient Comments: PT STATED HASNT USED IN TWO MONTHS R/T INSURANCE ISSUES amitriptyline 100 mg tablet 100 mg PO QHS sevelamer carbonate 800 mg tablet 1,600 mg PO TID acetaminophen [Tylenol] 325 mg capsule 650 mg PO Q6H PRN (Reason: pain ) ondansetron HCl 4 mg tablet 4 mg PO Q8H PRN PRN (Reason: nausea and vomiting) oxycodone-acetamino phen 5-325 mg tablet 1 tab PO Q6H PRN PRN (Reason: Pain) 3 Days Qty: 12 0RF Patient Comments: per pt no longer taking aspirin 81 mg capsule 81 mg PO DAILY hydroxyzine HCl 50 mg tablet 50 mg PO Q6H PRN (Reason: itching) sertraline 50 mg tablet 50 mg PO DAILY nifedipine 30 mg tablet extended release 24hr 30 mg PO QHS Referrals / Follow Up: Alhaji Pierce MD [Non-Staff -Ordering Privileges] - Within 1 Month (Left hand/forearm numbness.) Ignacio Cheatham MD [Primary Care Provider] - Within 2 Weeks Disposition Disposition (needs filled in before D/C Order can be placed): Home, Self Care 03/18/24 1134 Branden Banks MD CC: Dr. Cristal Blanchard DO; Dr. Hipolito Shepard MD; Dr. Ignacio Cheatham MD Signed Normal [facility] Hemoglobin A1con 03-18-2024 HbA1c (Bld) [Mass fraction] 10.5 % High 3.8-5.6 [facility] Comment on above: Result Comment: Norm al < 5.7 % Prediabetic 5.7 - 6.4 % Diabetic >or= 6.5 % Please note range changes. Performed By: #### L 501.9928 #### [facility] [address] [place], [address] Lipid Profileon 03-18-2024 Cholesterol [Mass/Vol] 191 mg/dL Normal 200 [facility] Comment on above: Order Comment: Comme nts: NPO at [place] prior to lipid panel Result Comment: <200 mg/dL Desirable 200-240 mg/dL Borderline >240 mg/dL High Risk Performed By: #### L 500.2500, L100.0100, L500.4100 #### [facility] [address] [place], [address] Cholesterol in HDL [Mass/Vol] 64 mg/dL Normal [facility] Comment on above: Order Comment: Comme nts: NPO at [place] prior to lipid panel Result Comment: The drugs N-Acetylcysteine and Metamizole may falsely depress this assay. Reference Range HDL <40 mg/dL Low HDL Cholesterol HDL >or= 60 mg/dL High HDL Cholesterol Performed By: #### L 500.2500, L100.0100, L500.4100 #### [facility] [address] [place], [address] Cholesterol in LDL [Mass/Vol] 105 mg/dL Normal 0-130 [facility] Comment on above: Order Comment: Comme nts: NPO at [place] prior to lipid panel Performed By: #### L 500.2500, L100.0100, L500.4100 #### [facility] [address] [place], [address] Cholesterol in VLDL [Mass/Vol] 22 mg/dL Normal 5-40 [facility] Comment on above: Order Comment: Comme nts: NPO at [place] prior to lipid panel Performed By: #### L 500.2500, L100.0100, L500.4100 #### [facility] [address] [place], [address] Triglyceride [Mass/Vol] 110 mg/dL Normal [facility] Comment on above: Order Comment: Comme nts: NPO at [place] prior to lipid panel Result Comment: The drugs N-Acetylcysteine and Metamizole may falsely depress this assay. Serum Triglycerides Reference Interval Normal <150 mg/dL Borderline high 150 - 199 mg/dL High 200 - 499 mg/dL Very High > or = 500 mg/dL Performed By: #### L 500.2500, L100.0100, L500.4100 #### [facility] [address] [place], [address] Basic Metabolic Profile (BMP )on 03-17-2024 BUN/CRE 5.4 RATIO Low 10-20 [facility] Comment on above: Order Comment: 'TROP ' Serial specimen #1, #2 or #3: 1 Performed By: #### L 100.0100, L500.4050 #### [facility] [address] [place], [address] CA,Total 8.5 mg/dL Normal 8.5-10.1 [facility] Comment on above: Order Comment: 'TROP ' Serial specimen #1, #2 or #3: 1 Performed By: #### L 100.0100, L500.4050 #### [facility] [address] [place], [address] Chloride [Moles/Vol] 96 mmol/L Low 98-107 [facility] Comment on above: Order Comment: 'TROP ' Serial specimen #1, #2 or #3: 1 Performed By: #### L 100.0100, L500.4050 #### [facility] [address] [place], [address] CO2 [Moles/Vol] 31.0 mmol/L Normal 21.0-32.0 [facility] Comment on above: Order Comment: 'TROP ' Serial specimen #1, #2 or #3: 1 Performed By: #### L 100.0100, L500.4050 #### [facility] [address] [place], [address] Creatinine [Mass/Vol] 2.05 mg/dL High 0.55-1.02 [facility] Comment on above: Order Comment: 'TROP ' Serial specimen #1, #2 or #3: 1 Result Comment: The validity of the calculated GFR GFRAA in patients over 70 years has not been determined. Clinical correlation is essential. Performed By: #### L 100.0100, L500.4050 #### [facility] [address] [place], [address] ECRCL 33.59 ml/min Normal [facility] Comment on above: Order Comment: 'TROP ' Serial specimen #1, #2 or #3: 1 Performed By: #### L 100.0100, L500.4050 #### [facility] [address] [place], [address] EST GFR - AA 32 mL/min Low >60 [facility] Comment on above: Order Comment: 'TROP ' Serial specimen #1, #2 or #3: 1 Result Comment: Afri can Singaporean GFR Calc Performed By: #### L 100.0100, L500.4050 #### [facility] [address] [place], [address] GAP 8 Normal 5-15 [facility] Comment on above: Order Comment: 'TROP ' Serial specimen #1, #2 or #3: 1 Performed By: #### L 100.0100, L500.4050 #### [facility] [address] [place], [address] GFR/1.73 sq M.predicted among non-blacks MDRD (S/P/Bld) [Vol rate/Area] 26 mL/min/{1.73_m2} Low >60 [facility] Comment on above: Order Comment: 'TROP ' Serial specimen #1, #2 or #3: 1 Result Comment: Non- GFR Calc Performed By: #### L 100.0100, L500.4050 #### [facility] [address] [place], [address] Glucose [Mass/Vol] 278 mg/dL High 74-106 [facility] Comment on above: Order Comment: 'TROP ' Serial specimen #1, #2 or #3: 1 Result Comment: Gluc ose result greater than or equal to 200 mg/dL suggests DIABETES MELLITUS per A.D.A. criteria. Performed By: #### L 100.0100, L500.4050 #### [facility] [address] [place], [address] Potassium [Moles/Vol] 3.6 mmol/L Normal 3.5-5.1 [facility] Comment on above: Order Comment: 'TROP ' Serial specimen #1, #2 or #3: 1 Performed By: #### L 100.0100, L500.4050 #### [facility] [address] [place], [address] Sodium [Moles/Vol] 135 mmol/L Low 136-145 [facility] Comment on above: Order Comment: 'TROP ' Serial specimen #1, #2 or #3: 1 Performed By: #### L 100.0100, L500.4050 #### [facility] [address] [place], [address] Urea nitrogen [Mass/Vol] 11 mg/dL Normal 7-18 [facility] Comment on above: Order Comment: 'TROP ' Serial specimen #1, #2 or #3: 1 Performed By: #### L 100.0100, L500.4050 #### [facility] [address] [place], [address] Bedside Glucoseon 03-17-2024 FINGERSTICK GLU 497 mg/dL Invalid Interpretation Code [address] [place] [address] Comment on above: Result Comment: SONJA GEMENT OF PATIENT CARE PER NURSING PROTOCOL Performed By: #### L 501.080 ####[facility] [address] [place], [address] FINGERSTICK GLU 248 mg/dL High 74-106 [facility] Comment on above: Result Comment: SONJA GEMENT OF PATIENT CARE PER NURSING PROTOCOL Performed By: #### L 501.080 ####[facility] [address] [place], [address] Brain without Contraston Brain without Contrast [facility] Imaging Services [address] [place] [address] Brain without Contrast MR#: [id number] Acct: [id number] Name: Margareth GONZALEZ Rep #: [id number] : 1965 F 58 From: Sha Rahman MD PCP: Dr. Ignacio Cheatham MD Status: ADM CHRISTA Study: Brain without Contrast Date of Exam: 03/17/24 Exam# [id number] Ordering Dr: Hipolito Shepard MD -[id number] STUDY: MRI BRAIN WITHOUT CONTRAST REASON FOR EXAM: Female, 58 years old. TIA vs CVA TECHNIQUE: Standardized multiplanar fat and water weighted pulse sequences were obtained. COMPARISON: CT of the brain March 17, 2024. FINDINGS: Mild atrophy and minimal periventricular white matter disease . Normal bilateral basal ganglia. Normal thalami. There is no extra-axial fluid accumulation. Normal flow voids within the major intracranial circulation suggesting patency by spin echo criteria. Normal sella turcica, pituitary gland, infundibular stalk, optic chiasm and hypothalamus. Normal tectal plate and pineal gland. Normal midbrain, karie and medulla. Normal cerebellum. Normal basal cisterns. Normal bilateral temporal bones. Normal bilateral internal auditory canals. Minor mucosal thickening of the mastoid air cells which may be consistent with old inflammatory disease Postsurgical changes of the orbits. Normal visualized paranasal sinuses. Normal calvarium and skull base. Normal visualized soft tissue structures. Normal visualized upper cervical spine. MRI/Brain without Contrast IMPRESSION: Mild atrophy and minimal periventricular white matter disease without evidence for acute infarct. Electronically Signed: Sha Rahman MD at 19:18 EST , CC: Dr. Hipolito Shepard MD; Dr. Ignacio Cheatham MD Allergist/Md: Signed Normal [facility] CBC W/Diff, Automatedon 03-02 Absolute Lymph 1.71 X10 3/uL Normal 0.83-4.51 [facility] Comment on above: Performed By: #### L 100.0100, L500.4050 #### [facility] [address] [place], [address] Absolute Neut 3.6 X10 3/uL Normal 2.0-7.7 [facility] Comment on above: Performed By: #### L 100.0100, L500.4050 #### [facility] [address] [place], [address] Basophils/100 WBC (Bld) 0.7 % Normal 0-1 [facility] Comment on above: Performed By: #### L 100.0100, L500.4050 #### [facility] [address] [place], [address] Eosinophils/100 WBC (Bld) 2.2 % Normal 0-5 [facility] Comment on above: Performed By: #### L 100.0100, L500.4050 #### [facility] [address] [place], [address] Erythrocyte distribution width (RBC) [Ratio] 12.1 % Normal 11.6-14.6 [facility] Comment on above: Performed By: #### L 100.0100, L500.4050 #### [facility] [address] [place], [address] Hematocrit (Bld) [Volume fraction] 33.5 % Low 37-47 [facility] Comment on above: Performed By: #### L 100.0100, L500.4050 #### [facility] [address] [place], [address] Hemoglobin (Bld) [Mass/Vol] 11.2 g/dL Low 12.0-15.0 [facility] Comment on above: Performed By: #### L 100.0100, L500.4050 #### [facility] [address] [place], [address] IG% 0.300 Normal 0.0-0.9 [facility] Comment on above: Result Comment: IG% - Immature Granulocytes (promyelocytes, myelocytes and metamyelocytes) > 1% indicates that a LEFT SHIFT is Present. Performed By: #### L 100.0100, L500.4050 #### [facility] [address] [place], [address] Lymphocytes/100 WBC (Bld) 28.7 % Normal 19-41 [facility] Comment on above: Performed By: #### L 100.0100, L500.4050 #### [facility] [address] [place], [address] MCH (RBC) [Entitic mass] 31.7 pg Normal 27.0-32.0 [facility] Comment on above: Performed By: #### L 100.0100, L500.4050 #### [facility] [address] [place], [address] MCHC (RBC) [Mass/Vol] 33.4 g/dL Normal 32-36 [facility] Comment on above: Performed By: #### L 100.0100, L500.4050 #### [facility] [address] [place], [address] MCV (RBC) [Entitic vol] 94.9 fL Normal 81-99 [facility] Comment on above: Performed By: #### L 100.0100, L500.4050 #### [facility] [address] [place], [address] Monocytes/100 WBC (Bld) 7.1 % Normal 0-10 [facility] Comment on above: Performed By: #### L 100.0100, L500.4050 #### [facility] [address] [place], [address] Neutrophils/100 WBC (Bld) 61.0 % Normal 47-70 [facility] Comment on above: Performed By: #### L 100.0100, L500.4050 #### [facility] [address] [place], [address] Nucleated RBC (Bld) [#/Vol] 0 10*3/uL Normal 0-5 [facility] Comment on above: Performed By: #### L 100.0100, L500.4050 #### [facility] [address] [place], [address] Platelet mean volume (Bld) [Entitic vol] 9.9 fL Normal 6.2-12.0 [facility] Comment on above: Performed By: #### L 100.0100, L500.4050 #### [facility] [address] [place], [address] Platelets (Bld) [#/Vol] 186 10*3/uL Normal 150-450 [facility] Comment on above: Performed By: #### L 100.0100, L500.4050 #### [facility] [address] [place], [address] RBC (Bld) [#/Vol] 3.53 10*6/uL Low 4.2-5.4 [facility] Comment on above: Performed By: #### L 100.0100, L500.4050 #### [facility] [address] [place], [address] RDW SD 41.7 fl Normal 35.1-43.9 [facility] Comment on above: Performed By: #### L 100.0100, L500.4050 #### [facility] [address] [place], [address] WBC (Bld) [#/Vol] 6.0 10*3/uL Normal 4.4-11.0 [facility] Comment on above: Performed By: #### L 100.0100, L500.4050 #### [facility] [address] [place], [address] CTA Head AND Neck W/ Contras ton 03-17-2024 CTA Head AND Neck W/ Contrast [facility] Imaging Services [address] [place] [address] CTA Head AND Neck W/ Contrast MR#: [id number] Acct: [id number] Name: Margareth GONZALEZ Rep #: [id number] : 1965 F 58 From: Minh Schmidt MD PCP: Dr. Ignacio Cheatham MD Status: REG ER Study: CTA Head AND Neck W/ Contrast Date of Exam: Exam# [id number] Ordering Dr: Neymar Toledo DO -[id number] EXAM: CT ANGIOGRAPHY HEAD AND NECK WITH INTRAVENOUS CONTRAST CLINICAL INDICATION: TIA TECHNIQUE: [facility] [facility] [place]/head and neck CT angiography protocol performed with intravenous contrast. CTDIvol = ( 20.02 ) mGy, DLP = ( 747.42 ) mGycm This CT exam was performed using one or more of the following dose reduction techniques: automated exposure control, adjustment of the mA and/or kV according to patient size, and/or use of iterative reconstruction technique. MIP reconstructed images were created and reviewed. CONTRAST: IV 100mL [id number] COMPARISON: No relevant prior studies available. FINDINGS: HEAD: RIGHT ANTERIOR CEREBRAL ARTERY: Unremarkable. No occlusion or significant stenosis. Anterior communicating artery is present. No aneurysm. RIGHT MIDDLE CEREBRAL ARTERY: Unremarkable. No occlusion or significant stenosis. No aneurysm. RIGHT POSTERIOR CEREBRAL ARTERY: Unremarkable. No occlusion or significant stenosis. No aneurysm. RIGHT INTRACRANIAL INTERNAL CAROTID ARTERY: Unremarkable. No significant stenosis. No dissection or occlusion. RIGHT INTRACRANIAL VERTEBRAL ARTERY: Unremarkable. No significant stenosis. No dissection or occlusion. LEFT ANTERIOR CEREBRAL ARTERY: Unremarkable. No occlusion or significant stenosis. No aneurysm. LEFT MIDDLE CEREBRAL ARTERY: Unremarkable. No occlusion or significant stenosis. No aneurysm. LEFT POSTERIOR CEREBRAL ARTERY: Unremarkable. No occlusion or significant stenosis. No aneurysm. LEFT INTRACRANIAL INTERNAL CAROTID ARTERY: Unremarkable. No significant stenosis. No dissection or occlusion. LEFT INTRACRANIAL VERTEBRAL ARTERY: Unremarkable. No significant stenosis. No dissection or occlusion. BASILAR ARTERY: Unremarkable. No occlusion or significant stenosis. No aneurysm. OTHER VASCULATURE: Atherosclerotic calcifications of the carotid siphons bilaterally with no more than mild luminal narrowing. No vascular malformation. NECK: RIGHT COMMON CAROTID ARTERY: Coarse atherosclerotic calcifications involving the right common carotid artery distally extending into the carotid bulb/ICA with no more than mild luminal narrowing. RIGHT EXTRACRANIAL INTERNAL CAROTID ARTERY: See above. RIGHT EXTERNAL CAROTID ARTERY: Unremarkable. No occlusion. RIGHT EXTRACRANIAL VERTEBRAL ARTERY: Unremarkable. No significant stenosis. No dissection or occlusion. LEFT COMMON CAROTID ARTERY: Unremarkable. No significant stenosis. No dissection or occlusion. LEFT EXTRACRANIAL INTERNAL CAROTID ARTERY: Unremarkable. No significant stenosis. No dissection or occlusion. LEFT EXTERNAL CAROTID ARTERY: Unremarkable. No occlusion. LEFT EXTRACRANIAL VERTEBRAL ARTERY: Unremarkable. No significant stenosis. No dissection or occlusion. BRACHIOCEPHALIC AND SUBCLAVIAN ARTERIES: Unremarkable as visualized. No occlusion or significant stenosis. LUNG APICES: Unremarkable as visualized. HEAD and NECK: BONES/JOINTS: Unremarkable. No discrete lytic or blastic abnormalities. SOFT TISSUES: Unremarkable. OTHER FINDINGS: Multilevel spine degenerative changes with severe degenerative disc disease at C3-4 and C4-5. CAROTID STENOSIS REFERENCE USING NASCET CRITERIA: % ICA stenosis = (1 - narrowest ICA diameter/diameter of distal cervical ICA) x 100. Mild - <50% stenosis. Moderate - 50-69% stenosis. Severe - 70-94% stenosis. Near occlusion - 95-99% stenosis. Occluded - 100% stenosis. CT/CTA Head AND Neck W/ Contrast IMPRESSION: No significant stenosis, thrombosis, aneurysm or dissection involving the arteries of the head and neck. Electronically Signed: Minh Schmidt MD at 13:53 EST , CC: Dr. Neymar Toledo DO; Dr. Ignacio Cheatham MD Allergist/Md: Signed Normal [facility] Chest 1 Viewon 03-17-2024 Chest 1 View [facility] Imaging Services [address] [place], [place] [address] Chest 1 View MR#: [id number] Acct: [id number] Name: Margareth GONZALEZ Rep #: [id number] : 1965 F 58 From: Ángel elliott MD PCP: Dr. Ignacio Cheatham MD Status: REG ER Study: Chest 1 View Date of Exam: 03/17/24 Exam# [id number] Ordering Dr: Neymar Toledo DO -[id number] STUDY: X-RAY CHEST REASON FOR EXAM: Female, 58 years old. Neuro deficit, acute, stroke suspected TECHNIQUE: Single AP portable view of the chest. COMPARISON: October 30, 2022 FINDINGS: No visualized consolidation. There are interstitial fibrotic changes of the lungs. There is no demonstrated pleural abnormality. Normal size heart. Normal mediastinum and stone. Normal visualized pulmonary arteries. There is atherosclerotic calcification of the aortic arch with tortuosity. There are diffuse degenerative changes of the visualized thoracic spine. Normal visualized ribs, clavicles, and shoulders. There is no demonstrated abnormality of the visualized soft tissue structures of the upper abdomen. RAD/Chest 1 View IMPRESSION: Degenerative changes, as described above. No demonstrated acute cardiopulmonary process. Electronically Signed: Ángel Vasquez MD at 12:22 EST , CC: Dr. Neymar Toledo DO; Dr. Ignacio Cheatham MD Allergist/Md: Signed Normal [facility] Echo Completeon 03-17-2024 Echo Complete [facility] [place] [address] Echo Complete 03/18/24 0920 MR#: [id number] Acct: [id number] Name: Margareth GONZALEZ Rep #: [id number] : 1965 58 From: Emerson Saldaña MD Attending Dr: Dr. Branden Banks MD Status: ADM CHRISTA Ordering Dr: Branden Banks MD Date: 03/17/24 Location: [facility] Sex: F C Admitted: 03/17/24 Reason For Study: TIA/CVA Procedure This was a 2D Doppler, Color Flow transthoracic echocardiogram. Exam performed portable in patient room. Left Ventricle Normal LV size. Mild concentric left ventricular hypertrophy. The left ventricular ejection fraction is 65 %. Stage 1 diastolic dysfunction. Right Ventricle Normal right ventricle. Atria The left atrium is mildly enlarged. Normal right atrium. Bubble contrast study is negative for PFO/ASD. Mitral Valve Mild mitral annular calcification. Trivial mitral valve insufficiency. Tricuspid Valve Trivial tricuspid valve insufficiency. Unable to estimate RV systolic pressure due to insufficient tricuspid regurgitant envelope. Aortic Valve Trisinus/trileaflet aortic valve. Pulmonic Valve The pulmonic valve is not well visualized. Great Vessels Normal sized aortic root. Pericardium/Pleural Trivial pericardial effusion. Medication Performed a rapid injection of agitated mix of 9 cc saline and 1cc air to assess for atrial septal defect. MMode/2D Measurements Calculations LVIDd: 4.0 cm IVSd: 1.2 cm LVOT diam: 2.1 cm LVIDs: 3.5 cm LVPWd: 1.4 cm RVDd: 2.9 cm FS: 12.2 % LVOT area: 3.3 cm2 Ao root diam: 3.1 cm LAV(MOD-bp): 66.1 ml LVAd ap4: 28.8 cm2 LA dimension: 4.3 cm LAV(MOD-bp) Indexed: 33.1 ml/m2 LVLd ap4: 7.8 cm LAV(MOD-sp2): 62.3 ml EDV(MOD-sp4): 89.1 ml LAV(MOD-sp4): 68.8 ml EDV(sp4-el): 90.5 ml LVAs ap4: 17.2 cm2 LVLs ap4: 7.0 cm ESV(MOD-sp4): 35.4 ml ESV(sp4-el): 35.7 ml EF(MOD-sp4): 60.2 % EF(sp4-el): 60.6 % SV(MOD-sp4): 53.7 ml SV(sp4-el): 54.8 ml LA A4 area: 22.3 cm2 SI(MOD-sp4): 26.8 ml/m2 LA dimension(2D): 3.5 cm RA A4 area: 13.6 cm2 Time Measurements MV dec time: 0.09 sec Doppler Measurements Calculations MV E max wallace: 93.0 cm/sec Lat Peak E' Wallace: 6.9 cm/sec Med Peak E' Wallace: 5.5 cm/sec MV A max wallace: 115.2 cm/sec E/E' lat: 13.5 E/E' med: 17.0 MV E/A: 0.81 MV V2 max: 122.2 cm/sec MV dec slope: 1052 cm/sec2 Ao V2 max: 164.6 cm/sec MV max P.0 mmHg Ao max P.9 mmHg MV V2 mean: 86.6 cm/sec Ao V2 mean: 115.4 cm/sec MV mean P.2 mmHg Ao mean P.0 mmHg MV V2 VTI: 28.7 cm Ao V2 VTI: 30.1 cm MVA(VTI): 3.0 cm2 AV (velocity ratio): 0.87 LUISA(I,D): 2.9 cm2 LUISA(V,D): 2.5 cm2 LV V1 max: 125.6 cm/sec SV(LVOT): 87.1 ml PA V2 max: 101.3 cm/sec LV V1 max P.3 mmHg PA V2 mean: 79.3 cm/sec LV V1 mean P.3 mmHg LV V1 mean: 84.0 cm/sec LV V1 VTI: 26.1 cm ECHO/Echo Complete Interpretation Summary Mild concentric left ventricular hypertrophy. The left ventricular ejection fraction is 65 %. Stage 1 diastolic dysfunction. The left atrium is mildly enlarged. Bubble contrast study is negative for PFO/ASD. Mild mitral annular calcification. __ Ordering Physician: Branden Banks Referring Physician: IGNACIO CHEATHAM Performed By: Jocy Jones RCS 03/18/24 1057 Date Emerson Saldaña MD CC: Dr. Branden Banks MD; Dr. Ignacio Cheatham MD Date Dictated: 03/18/24919 Date Transcribed: 03/18/241056 Allergist/Md: Signed Normal [facility] Emergency Department Summary on 03-17-2024 Emergency Department Summary [facility] Medical Records Department [address] [place] [address] Emergency Department Summary 03/17/24 MR#: [id number] Acct: [id number] Name: LISAMargareth ARNOLD Rep #: [id number] : 1965 58 From: Neymar Toledo DO PCP: Dr. Ignacio Cheatham MD Status:ADM CHRISTA Location: [address] History of Present Illness Chief Complaint: Neuro S/Sx Informant: patient Narrative Narrative: 58-year-old female arriving by EMS from the dialysis center with a prehospital stroke alert. Patient was nearing the end of dialysis when she stated that her left hand became numb. She states she still had movement in it. She states she was not concerned with that as she has had some problems with her fistula lately but not numbness in the hands. It was more problems with pain and flow. She states that the nurses there reported that she had left facial droop and slurred speech. She did not noticed the facial droop but she did noticed that her speech was slurred. By time EMS arrived her speech had improved as did her hand symptoms. However once in the ambulance on the way to the hospital her speech became slurred again. Now she states she is feeling fine. She states she is not on any blood thinners. She has no headache. She reports that she is experiencing some abdominal cramping and that my fibromyalgia is flaring. [facility] Medical History Fracture of fibula, right, closed Anemia Hyperkalemia Osteoarthritis of right knee Pathological fracture, right tibia, initial encounter for fracture Diabetes Dialysis patient Kidney disease GERD (gastroesophageal reflux disease) Sleep apnea Former smoker Asthma DVT (deep venous thrombosis) ESRD (end stage renal disease) on dialysis Fracture of right lower extremity Inability to walk Diabetes mellitus, type 2 Obesity Chronic anemia COPD with asthma Bipolar disorder Anxiety and depression HLD (hyperlipidemia) HTN (hypertension) Former tobacco use Neuropathy Fibromyalgia Kidney disease, chronic, stage IV (GFR 15-29 ml/min) History of tobacco use History of diabetes mellitus, type II History of COPD History of bipolar disorder Benign essential hypertension History of asthma Home Medications ???Medication ???Instructions ???Recorded ???Last Taken ???Type cholecalciferol (vitamin D3) 25 5,000 unit PO DAILY SUPPLEMENT 10/03/13 01/18/23 History mcg (1,000 unit) capsule (Vitamin D3) omeprazole 20 mg capsule,delayed 20 mg PO DAILY 08/23/14 01/18/23 History release glipizide 5 mg tablet 10 mg PO DAILY DIABETES 04/28/15 01/18/23 History melatonin 5 mg capsule 5 mg PO QHS 05/27/16 01/18/23 History amitriptyline 100 mg tablet 100 mg PO QHS DEPRESSION 09/10/22 01/18/23 History atorvastatin 40 mg tablet 40 mg PO QHS CHOLESTEROL 09/10/22 01/18/23 History calcitriol 0.25 mcg capsule 0.25 mcg PO DAILY 09/10/22 01/18/23 History dulaglutide 1.5 mg/0.5 mL 1.5 mg subcut CORNELL DIABETES 09/10/22 01/18/23 History subcutaneous pen injector (Trulicity) sevelamer carbonate 800 mg tablet 1,600 mg PO TID 02/04/23 Unknown History aspirin 81 mg capsule 81 mg PO DAILY 06/29/23 Unknown History hydroxyzine HCl 50 mg tablet 50 mg PO Q6H 06/29/23 Unknown History sertraline 50 mg tablet 50 mg PO DAILY 06/29/23 Unknown History acetaminophen 325 mg capsule 650 mg PO Q6H 07/02/23 Unknown History (Tylenol) ondansetron HCl 4 mg tablet 4 mg PO Q8H PRN PRN nausea and 07/02/23 Unknown History vomiting oxycodone-acetamino phen 5 mg-325 1 tab PO Q6H PRN PRN Pain 3 days 07/24/23 Unknown Rx mg tablet #12 TABLETS nifedipine 30 mg tablet,extended 30 mg PO DAILY 03/17/24 Unknown History release 24 hr Allergy/AdvReac Type Severity Reaction Status Date / Time balsam juan Allergy Unknown UNKNOWN Verified 03/17/24 11:09 mold Allergy Unknown unknown Verified 03/17/24 11:09 lisinopril Allergy unknown Verified 03/17/24 11:09 Penicillins Allergy Anaphylaxis Verified 03/17/24 11:09 tetracycline (Tetracycline) Allergy Anaphylaxis Verified 03/17/24 11:09 codeine AdvReac Abd Verified 03/17/24 11:09 cramps/diarrhea diphenhydramine HCl (From AdvReac Upset Verified 03/17/24 11:09 Benadryl) Stomach hydrocodone bitartrate (From AdvReac Abd Verified 03/17/24 11:09 Vicodin) cramps/diarrhea NSAIDS (Non-Steroidal AdvReac Unknown Verified 03/17/24 11:09 Anti-Inflamma Family History Mother Heart disease Hypertension Diabetes Kidney disease Father Diabetes Surgical History History of appendectomy History of cholecystectomy H/O vascular surgery H/O gastric bypass S/P cholecystectomy S/P appendectomy Social History (Review (more content not included)... Normal [facility] H AND P Exam - Hospitaliston 03-17-2024 H&P Exam - Hospitalist [facility] Medical Records Department [address] [place] [address] H P Exam - Hospitalist 03/17/24 1538 MR#: [id number] Acct: [id number] Name: Margareth GONZALEZ Rep #: [id number] : 1965 58 From: Cristal Blanchard DO PCP: Dr. Ignacio Cheatham MD Status:ADM CHRISTA Location: [place] [address] HPI - General General Date of Admission: 03/17/24 Date of Service: 03/17/24 Chief Complaint: Left hand numbness MUKESH GONZALEZ, is a 58 F who presented to the emergency department at [facility] on 03/17/2024 with a chief complaint of left hand numbness. Patient reported that while she was at dialysis towards the end of her dialysis she started having some left hand numbness. She had no motor deficit but sensory deficit was affected. She had no other motor or sensory deficits at that time. She does have a left upper extremity graft in the forearm. An outside prehospital stroke alert was called. Nurses reported at the dialysis center that she also had left facial droop and some slurred speech but she did not notice the had any facial droop she did appreciate that her speech was a bit slurred. By the time she arrived the emergency department here she reported all her symptoms had resolved. She had no complaints other than she felt like her fibromyalgia was flaring and she had some abdominal cramping which she states is not atypical for her after dialysis. Vital signs on presentation showed a temperature of 98, heart rate 88, blood pressure 130/70, respiratory rate was 18 and oxygen saturation was 94% on 4 L nasal cannula. Upon reevaluation she was 95% on room air. CBC was overtly unremarkable other than mild anemia which is stable. Coags were normal. She had mild hyponatremia which is chronic with her dialysis and her creatinine was 2.05 postdialysis today. Glucose was markedly elevated to 78. Troponin was 26. EKG showed no acute ischemic changes and no arrhythmia. CT of the brain showed chronic ischemic changes but no acute findings. CTA of the head and neck showed no significant stenosis or thrombus, aneurysm or dissection involving the arteries of the head and neck. Very mild right carotid artery stenosis with minimal luminal narrowing was noted. Chest x-ray was unremarkable for acute findings. NIH on initial evaluation emergency department was 0. Case was discussed with [facility] teleneurology and both ED and teleneurology concurred that she was not a tenecteplase candidate. It was recommended she be admitted for stroke rule out. [facility] Medical History Fracture of fibula, right, closed Anemia Hyperkalemia Osteoarthritis of right knee Pathological fracture, right tibia, initial encounter for fracture Diabetes Dialysis patient Kidney disease GERD (gastroesophageal reflux disease) Sleep apnea Former smoker Asthma DVT (deep venous thrombosis) ESRD (end stage renal disease) on dialysis Fracture of right lower extremity Inability to walk Diabetes mellitus, type 2 Obesity Chronic anemia COPD with asthma Bipolar disorder Anxiety and depression HLD (hyperlipidemia) HTN (hypertension) Former tobacco use Neuropathy Fibromyalgia Kidney disease, chronic, stage IV (GFR 15-29 ml/min) History of tobacco use History of diabetes mellitus, type II History of COPD History of bipolar disorder Benign essential hypertension History of asthma Home Medications ???Medication ???Instructions ???Recorded ???Last Taken ???Type cholecalciferol (vitamin D3) 25 5,000 unit PO DAILY SUPPLEMENT 10/03/13 01/18/23 History mcg (1,000 unit) capsule (Vitamin D3) omeprazole 20 mg capsule,delayed 20 mg PO DAILY 08/23/14 03/16/24 History release glipizide 5 mg tablet 10 mg PO DAILY DIABETES 04/28/15 01/18/23 History melatonin 5 mg capsule 10 mg PO QHS sleep 05/27/16 01/18/23 History amitriptyline 100 mg tablet 100 mg PO QHS DEPRESSION 09/10/22 01/18/23 History atorvastatin 40 mg tablet 40 mg PO QHS CHOLESTEROL 09/10/22 01/18/23 History calcitriol 0.25 mcg capsule 1.5 mcg [facility] 03/17/24 History dulaglutide 1.5 mg/0.5 mL 1.5 mg subcut CORNELL DIABETES 09/10/22 01/18/23 History subcutaneous pen injector (Trulicity) sevelamer carbonate 800 mg tablet 1,600 mg PO TID 02/04/23 Unknown History aspirin 81 mg capsule 81 mg PO DAILY 06/29/23 Unknown History hydroxyzine HCl 50 mg tablet 50 mg PO Q6H PRN itching 06/29/23 Unknown History sertraline 50 mg tablet 50 mg PO DAILY 06/29/23 Unknown History acetaminophen 325 mg capsule 650 mg PO Q6H PRN pain 07/02/23 Unknown History (Tylenol) ondansetron HCl 4 mg tablet 4 mg PO Q8H PRN PRN nausea and 07/02/23 Unknown History vomiting oxycodone-acetamino phen 5 mg-325 1 tab PO Q6H PRN PRN Pain 3 days 07/24/23 Unknown Rx mg tablet #12 TABLETS (more content not included)... Normal [facility] L501.4020on 03-17-2024 TROPONIN-I HS 26 pg/mL Normal 3.0-54.0 [facility] Comment on above: Order Comment: 'TROP ' Serial specimen #1, #2 or #3: 1 Result Comment: Plea se Note: New Test Units and Gender Specific Reference Ranges. For more information see Policy Stat Procedure [place] High Sensitivity Troponin (TNIH) and attachments. Performed By: #### L 100.0100, L500.4050 #### [facility] [address] [place], [address] Partial Thromboplast Timeon 03-17-2024 aPTT Coag (Bld) [Time] 25.0 s Normal 24.1-36.2 [facility] Comment on above: Performed By: #### L 100.0100, L500.4050 #### [facility] [address] [place], [address] Prothrombin Time w/INRon INR Coag (PPP) [Relative time] 0.9 {INR} Normal [facility] Comment on above: Performed By: #### L 100.0100, L500.4050 #### [facility] [address] [place], [address] PT Coag (PPP) [Time] 12.3 s Normal 11.7-14.9 [facility] Comment on above: Performed By: #### L 100.0100, L500.4050 #### [facility] [address] [place], [address] STROKE Brain/Head without Co nton 03-17-2024 STROKE Brain/Head without Cont [facility] Imaging Services [address] [place] [address] STROKE Brain/Head without Cont MR#: [id number] Acct: [id number] Name: Margareth GONZALEZ Rep #: [id number] : 1965 F 58 From: Ángel elliott MD PCP: Dr. Ignacio Cheatham MD Status: REG ER Study: STROKE Brain/Head without Cont Date of Exam: 0 03/17/24 Exam# [id number] Ordering Dr: Neymar Toledo DO ADDENDUM by Dr. Ángel Vasquez MD on 03/17/24 at 1124 -[id number] STUDY: STROKE PROTOCOL CT BRAIN WITHOUT CONTRAST REASON FOR EXAM: Female, 58 years old. Neuro deficit, acute, stroke suspected RADIATION DOSAGE (If Supplied By Facility): CTDIvol = ( ) mGy, DLP = ( ) mGycm TECHNIQUE: Transaxial CT imaging of the brain was performed without administration of intravenous contrast material. Individualized dose optimization techniques were used for this CT. COMPARISON: Head CT dated November 02, 2023 FINDINGS: Major intracranial venous sinuses: No abnormal hyperdensity MCA and basilar arteries assessment: No abnormal hyperdensity No visualized extra-axial fluid collection or subdural hemorrhage. Normal soft tissue structures. Normal calvarium. There is mild cerebral atrophy with widening of the extra-axial spaces and ventricular dilatation. There are areas of decreased attenuation within the white matter tracts of the supratentorial brain, consistent with microvascular disease changes. Normal basal ganglia and thalami. Normal brainstem. Normal cerebellum. There is no demonstrated sulcal effacement or parenchymal edema. There is no intracranial hemorrhage. There are no findings of an acute ischemic infarction. There is mucoperiosteal inflammatory disease of the paranasal sinuses consistent with mild chronic sinusitis. ASPECTS Score for Acute Strokes: 03/17/24 1124 Date cc: Dr. Neymar Toledo DO; Dr. Ignaico Cheatham MD * Signed ADDENDUM by Dr. Ángel Vasquez MD on 01/16/[address]/STROKE Brain/Head without Cont IMPRESSION: 1. Chronic ischemic and involutional changes of the brain. 2. Concern for stroke/positive symptomatology should be further evaluated with CT brain perfusion/CTA or MRI of the brain for further assessment. N.B. : The above Results were Read Back by Ángel Vasquez MD to Neymar Toledo DO, and understanding confirmed on 03/17/2024 11:23:30 (ET). Electronically Signed: Ángel Vasquez MD at 11:24 EST , 03/17/24 1131 Date cc: Dr. Neymar Toledo DO; Dr. Ignacio Cheatham MD * Signed -[id number] STUDY: STROKE PROTOCOL CT BRAIN WITHOUT CONTRAST REASON FOR EXAM: Female, 58 years old. Neuro deficit, acute, stroke suspected RADIATION DOSAGE (If Supplied By Facility): CTDIvol = ( ) mGy, DLP = ( ) mGycm TECHNIQUE: Transaxial CT imaging of the brain was performed without administration of intravenous contrast material. Individualized dose optimization techniques were used for this CT. COMPARISON: Head CT dated November 02, 2023 FINDINGS: Major intracranial venous sinuses: No abnormal hyperdensity MCA and basilar arteries assessment: No abnormal hyperdensity No visualized extra-axial fluid collection or subdural hemorrhage. Normal soft tissue structures. Normal calvarium. There is mild cerebral atrophy with widening of the extra-axial spaces and ventricular dilatation. There are areas of decreased attenuation within the white matter tracts of the supratentorial brain, consistent with microvascular disease changes. Normal basal ganglia and thalami. Normal brainstem. Normal cerebellum. There is no demonstrated sulcal effacement or parenchymal edema. There is no intracranial hemorrhage. There are no findings of an acute ischemic infarction. There is mucoperiosteal inflammatory disease of the paranasal sinuses consistent with mild chronic sinusitis. ASPECTS Score for Acute Strokes: 10 CT/STROKE Brain/Head without Cont IMPRESSION: 1. Chronic ischemic and involutional changes of the brain. 2. Concern for stroke/positive symptomatology should be further evaluated with CT brain perfusion/CTA or MRI of the brain for further assessment. N.B. : The above Results were Read Back by Ángel Vasquez MD to Neymar Toledo DO, and understanding confirmed on 03/17/2024 11:23:30 (ET). Electronically Signed: Ángel Vasquez MD at 11:24 EST , Fax (more content not included)... Normal [facility] 03-04-2024 [facility] Telephone ([facility]) ---- Margareth GONZALEZ ([id number]) 1965 F Date Time Provider Department 03/04/24 SAIRA JACKSON During your visit today, we recorded the following information about you: Linda Sotelo 03/04/2024 1:48 PM Signed Jenni Castro, Allyssa Hare; Linda Sotelo Me! Can you assist me with scheduling this? I tried but it needs financial clearance. She needs scheduled in [place] on a M, W, F, d/t dialysis the other days. Thanks! Jenni STERLING Testing Waiting on referral to be authorized, will call when it is. Linda Sotelo 03/22/2024 8:10 AM Signed It is unfortunately still pending in the referrals. Ashley Fraire 03/23/2024 10:46 AM Signed Per our varnish maker patient has Medicare A AND B and does not need financial clearance to schedule. Called Dialysis to see if they could give us the Medicare card information , they said they don't have it yet. Called patient and left a voicemail for her to Call ashley with her new insurance information. Jenni Castro RN 03/29/2024 9:02 AM Signed Spoke with patients sister Halle GONGORA,patient has not received insurance card. She will find out the correct name that will be listed on the card and contact the office so we can get the patient scheduled for the [place] Jenni Castro RN 04/07/2024 10:30 AM Signed Called the dialysis center regarding need for insurance card They have not received this yet. Patient is supposed to bring to dialysis to scan in to system once they receive this, they will fax a copy to our office. Allergies As of Date: 03/04/2024 Noted Allergy Reaction VICODIN (HYDROCODONE-ACETAM INOPHE*09/23/2007 11 - Vomiting BALSAM 115 09/23/2007 BALSAM JUAN 09/10/2022 16 - Unknown BARIUM SULFATE 05/01/2023 16 - Unknown BENADRYL ALLERGY DECONGESTANT 05/01/2023 9 - Itching BENADRYL (DIPHENHYDRAMINE HCL) 09/23/2007 2 - Rash 9 - Itching CODEINE 09/23/2007 11 - Vomiting 14 - Other: See Comments LISINOPRIL 05/26/2008 15 - Contraindication-Me dical Cornell* Comments: Acute renal failure MOLD 09/23/2007 NSAIDS (NON-STEROIDAL ANTI-INFLAM* 013 14 - Other: See Comments Comments: Unable to take nsaids after having gastric bypass. PENICILLINS 09/23/2007 10 - Anaphylaxis SEASONAL ALLERGIES 12/14/2008 14 - Other: See Comments Comments: Nose runs, sneezing... TETRACYCLINE 09/23/2007 2 - Rash VANILLA EXTRACT 09/23/2007 VANILLA EXTRACT FLAVOR 09/10/2022 16 - Unknown Date Reviewed: 02/09/2024 Reviewed by: Maria Eugenia Palencia OCCA - Fully Assessed Prescriptions as of 04/07/2024 - hydrOXYzine pamoate (VISTARIL) 25 mg capsule Take 1 capsule by mouth at bedtime as needed. - ondansetron orally disintegrating (ZOFRAN ODT) 4 mg disintegrating tablet Take 1 tablet by mouth every 8 hours as needed for nausea/vomiting. - hydrOXYzine HCl (ATARAX) 50 mg tablet Take 1 tablet by mouth every 6 hours as needed for itching/rash. - NIFEdipine ER (PROCARDIA XL) 30 mg 24 hr tablet Take 1 tablet by mouth every afternoon. - sevelamer carbonate (RENVELA) 800 mg tablet Take 1 tablet by mouth three times a day with meals. Ordered by dialysis - glipiZIDE (GLUCOTROL XL) 5 mg 24 hr tablet Take 10 mg by mouth. Per endocrinology - DULoxetine (CYMBALTA) 30 mg capsule Take 1 capsule by mouth once daily. - amitriptyline (ELAVIL) 100 mg tablet Take 1 tablet by mouth daily at bedtime. - atorvastatin (LIPITOR) 40 mg tablet Take 1 tablet by mouth daily at bedtime. For cholesterol. - omeprazole (PRILOSEC) 20 mg capsule Take 1 capsule by mouth once daily. - sertraline (ZOLOFT) 50 mg tablet Take 1 tablet by mouth once daily. - TRULICITY 1.5 mg/0.5 mL pen injector INJECT 1.5 MG UNDER THE SKIN ONCE A WEEK - acetaminophen (TYLENOL) 500 mg tablet Take 1,000 mg by mouth every 12 hours. - calcitriol (ROCALTROL) 0.25 mcg capsule Take 0.25 mcg by mouth once daily. Per diaylsis - melatonin 5 mg tablet Take 5 mg by mouth. As needed. - flash glucose scanning reader (FREESTYLE FESTUS 2 READER) Use to check glucose 3 times daily and continuously. 1 per year. - flash glucose sensor (FREESTYLE FESTUS 2 SENSOR) kit Use to check glucose 3 times daily and continuously. Change every 14 days. 6 per 90 day supply. - cholecalciferol (VITAMIN D3) 5,000 unit tab Take 5,000 Units by mouth twice daily. - aspirin, enteric coated (ADULT LOW DOSE ASPIRIN) 81 mg EC tablet Take 1 tablet by mouth once daily. - Rukwpfgs-Hq-Kfj-Fe- FA ( VITAMIN) ORAL Tab Take 1 tablet by mouth once daily. Meds Comments as of 11/28/2017: Pt states all meds were just gone over. Did not go over meds. Swathi Haddad Ma November 28, 2017 Problem List As Of Date 03/04/2024 Noted Resolved Acute gastritis [K29.00] 12/16/2007 08/04/2022 DM w/o complication type II, uncontrolled [IMO0*03/09/2008 12/07/2014 Routine gynecological examination [Z01. (more content not included)... Normal [facility] CNOVon 02-09-2024 CNOV Office Visit ([facility]) ---- Margareth GONZALEZ ([id number]) 1965 F [place] Date Time Provider Department 02/09/24 11:00 AM SAIRA JACKSONS During your visit today, we recorded the following information about you: Pulse Blood pressure 98/minute 172/84 Saira Jackson, DO 02/26/2024 2:11 PM Signed [facility] [place] DEPARTMENT OF VASCULAR SURGERY OUTPATIENT VISIT DATE February 09, 2024 OUTPATIENT VISIT TYPE ESTABLISHED SERVICE DATE: 02/09/2024 SERVICE TIME: 12:06 PM PRIMARY CARE PHYSICIAN: Ignacio Cheatham MD HISTORY OF PRESENT ILLNESS: Ms. Gonzalez is a 58 year old female who presents today for a vascular surgery follow-up visit for her av fistula. States they are using her fistula at dialysis. States it is painful. PAST MEDICAL HISTORY Diagnosis Date Acute gastritis without mention of hemorrhage Allergic rhinitis Anaphylaxis Anemia Back pain Benign essential tremor Bipolar I disorder, most recent episode (or current) unspecified sectrum Bone mass Candidiasis, intertrigo Chronic kidney disease Contraceptive management Depression Diabetes (HCC) Diarrhea DVT, lower extremity ([facility]) 08/2014 Right leg (6) Esophagitis ESRD (end stage renal disease) ([facility]) 07/03/2022 Facial fracture due to fall ([facility]) ([facility]) Fatigue Fibromyalgia Fracture Fracture of shaft of fibula GERD (gastroesophageal reflux disease) HLD (hyperlipidemia) on tricor Hyperlipidemia Hypertension Hypomagnesemia Hypopotassemia IBS (irritable bowel syndrome) Insomnia Intertrigo Knee pain Morbid obesity (HCC) 03/11/2011 Myalgia Nausea Neck pain Neuropathy Nocturnal leg cramps Non-cardiac chest pain Obesity CASSIE (obstructive sleep apnea) 07/08/2011 Other polyp of sinus Other specified anemias Personal history of unspecified urinary disorder PMH - PAST MEDICAL HISTORY OF left knee surgery x3 Pulmonary nodules Pyelonephritis, acute Restless leg Ruptured appendicitis S/P gastric bypass Snoring Type 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, not stated as uncontrolled(250.50 ) on oral medications and Lanuts Unspecified asthma(493.90) on inhalers Unspecified essential hypertension on medical management Upper abdominal pain Urinary frequency Vitamin D deficiency PAST SURGICAL HISTORY Procedure Laterality Date CHOLECYSTECTOMY 04/02/2011 COLONOSCOPY W/BIOPSY SINGLE/MULTIPLE 12/16/2007 DILATION AND CURETTAGE DXAND/THER NONOBSTETRIC Dilation AND curettage EGD TRANSORAL BIOPSY SINGLE/MULTIPLE 12/16/2007 ESOPHAGOGASTRODUODE NOSCOPY TRANSORAL DIAGNOSTIC age 14 EGD LAPAROSCOPIC APPENDECTOMY 05/16/2011 MIDLINE INSERTION/CONSULT 07/29/2012 Lap Paul-en-Y gastric bypass PAST SURGICAL HISTORY OF age 14 left knee surgery, for dislocation PAST SURGICAL HISTORY OF age 5 warts removed PAST SURGICAL HISTORY OF 03/02/2007 laser surgery to both eyes for diabetic retinopathy PAST SURGICAL HISTORY OF 04/26/2008 Bilateral eye surgery- vitrectomy PAST SURGICAL HISTORY OF 06/30/2008 Left eye air fluid exchange PAST SURGICAL HISTORY OF 04/09, 07/07 retinal vitrectomies PAST SURGICAL HISTORY OF Left 07/24/2022 Left forearm AVG with [address] Valenzuela STRESS TEST 200p, 2015 Normal results TUBAL LIGATION HX ablation at the same time SOCIAL HISTORY Social History Tobacco Use Smoking status: Former Current packs/day: 0.00 Average packs/day: 2.0 packs/day for 6.0 years (12.0 ttl pk-yrs) Types: Cigarettes Start date: 08/01/1983 Quit date: 07/31/1989 Years since quittin.5 Smokeless tobacco: Never Tobacco comments: Quit at age 24 Vaping Use Vaping status: Never Used Substance Use Topics Alcohol use: Not Currently Comment: rare Drug use: No Comment: Tried marijuana once - never used it again. MEDICATIONS: hydrOXYzine HCl (ATARAX) 50 mg tablet Take 1 tablet by mouth every 6 hours as needed for itching/rash. ondansetron orally disintegrating (ZOFRAN ODT) 4 mg disintegrating tablet Take 1 tablet by mouth every 8 hours as needed for nausea/vomiting. NIFEdipine ER (PROCARDIA XL) 30 mg 24 hr tablet Take 1 tablet by mouth every afternoon. sevelamer carbonate (RENVELA) 800 mg tablet Take 1 tablet by mouth three times a day with meals. Ordered by dialysis glipiZIDE (GLUCOTROL XL) 5 mg 24 hr tablet Take 10 mg by mouth. Per endocrinology DULoxetine (CYMBALTA) 30 mg capsule Take 1 capsule by mouth once daily. amitriptyline (ELAVIL) 100 mg tablet Take 1 tablet by mouth daily at bedtime. atorvastatin (LIPITOR) 40 mg tablet Take 1 tablet by mouth daily at bedtime. For cholesterol. omeprazole (PRILOSEC) 20 mg capsule Take 1 capsule by mouth once daily. sertraline (ZOLOFT) 50 mg tablet Take 1 tablet by mouth once daily. TRULICITY 1.5 mg/0.5 mL pen injector INJECT 1.5 MG UNDER (more content not included)... Normal [facility] 01-21-2024 [facility] Telephone ([facility]) ---- Margareth GONZALEZ ([id number]) 1965 F Date Time Provider Department 01/21/24 [facility]IO [facility] During your visit today, we recorded the following information about you: Efra Box MA 01/21/2024 2:58 PM Signed Type of form: [employer] Form received via walk in When form is completed, Fax form to [facility] Form has been forwarded to Physician Desk: ALANA Malloy Tara, LPN 01/22/2024 9:15 AM Signed Faxed as requested. Allergies As of Date: 01/21/2024 Noted Allergy Reaction VICODIN (HYDROCODONE-ACETAM INOPHE*09/23/2007 11 - Vomiting BALSAM 115 09/23/2007 BALSAM JUAN 09/10/2022 16 - Unknown BARIUM SULFATE 05/01/2023 16 - Unknown BENADRYL ALLERGY DECONGESTANT 05/01/2023 9 - Itching BENADRYL (DIPHENHYDRAMINE HCL) 09/23/2007 2 - Rash 9 - Itching CODEINE 09/23/2007 11 - Vomiting 14 - Other: See Comments LISINOPRIL 05/26/2008 15 - Contraindication-Me dical Cornell* Comments: Acute renal failure MOLD 09/23/2007 NSAIDS (NON-STEROIDAL ANTI-INFLAM* 013 14 - Other: See Comments Comments: Unable to take nsaids after having gastric bypass. PENICILLINS 09/23/2007 10 - Anaphylaxis SEASONAL ALLERGIES 12/14/2008 14 - Other: See Comments Comments: Nose runs, sneezing... TETRACYCLINE 09/23/2007 2 - Rash VANILLA EXTRACT 09/23/2007 VANILLA EXTRACT FLAVOR 09/10/2022 16 - Unknown Date Reviewed: 12/30/2023 Reviewed by: Dorene Murillo MD - Fully Assessed Reason for Visit: Forms [913] Prescriptions as of 01/22/2024 - hydrOXYzine HCl (ATARAX) 50 mg tablet Take 1 tablet by mouth every 6 hours as needed for itching/rash. - ondansetron orally disintegrating (ZOFRAN ODT) 4 mg disintegrating tablet Take 1 tablet by mouth every 8 hours as needed for nausea/vomiting. - NIFEdipine ER (PROCARDIA XL) 30 mg 24 hr tablet Take 1 tablet by mouth every afternoon. - sevelamer carbonate (RENVELA) 800 mg tablet Take 1 tablet by mouth three times a day with meals. Ordered by dialysis - glipiZIDE (GLUCOTROL XL) 5 mg 24 hr tablet Take 10 mg by mouth. Per endocrinology - DULoxetine (CYMBALTA) 30 mg capsule Take 1 capsule by mouth once daily. - amitriptyline (ELAVIL) 100 mg tablet Take 1 tablet by mouth daily at bedtime. - atorvastatin (LIPITOR) 40 mg tablet Take 1 tablet by mouth daily at bedtime. For cholesterol. - omeprazole (PRILOSEC) 20 mg capsule Take 1 capsule by mouth once daily. - sertraline (ZOLOFT) 50 mg tablet Take 1 tablet by mouth once daily. - TRULICITY 1.5 mg/0.5 mL pen injector INJECT 1.5 MG UNDER THE SKIN ONCE A WEEK - acetaminophen (TYLENOL) 500 mg tablet Take 1,000 mg by mouth every 12 hours. - calcitriol (ROCALTROL) 0.25 mcg capsule Take 0.25 mcg by mouth once daily. Per diaylsis - melatonin 5 mg tablet Take 5 mg by mouth. As needed. - flash glucose scanning reader (SimpleReachSTYLE FESTUS 2 READER) Use to check glucose 3 times daily and continuously. 1 per year. - flash glucose sensor (FREESTYLE FESTUS 2 SENSOR) kit Use to check glucose 3 times daily and continuously. Change every 14 days. 6 per 90 day supply. - cholecalciferol (VITAMIN D3) 5,000 unit tab Take 5,000 Units by mouth twice daily. - aspirin, enteric coated (ADULT LOW DOSE ASPIRIN) 81 mg EC tablet Take 1 tablet by mouth once daily. - Shiqerkq-Qq-Xwl-Fe- FA ( VITAMIN) ORAL Tab Take 1 tablet by mouth once daily. Meds Comments as of 11/28/2017: Pt states all meds were just gone over. Did not go over meds. Swathi Haddad Ma November 28, 2017 Problem List As Of Date 01/21/2024 Noted Resolved Acute gastritis [K29.00] 12/16/2007 08/04/2022 DM w/o complication type II, uncontrolled [IMO0*03/09/2008 12/07/2014 Routine gynecological examination [Z01.419] 03/09/2008 04/16/2017 Class: Chronic OBESITY NOS [E66.9] 03/09/2008 Acute anemia [D64.9] 03/09/2008 Background diabetic retinopathy (HCC) [E11.3299] 9 Asthma [J45.909] 03/09/2008 DIABETIC FOOT ULCER [L97.509] 03/09/2008 04/16/2017 CHOLELITHIASIS NOS [K80.20] 03/09/2008 Bipolar disorder, unspecified (HCC) [F31.9] 03/09/2008 Essential hypertension, benign [I10] 03/27/2008 03/16/2015 Primary hypertension [I10] Type 2 diabetes mellitus with stage 4 chronic k* Pain in limb [M79.609] 06/29/2008 02/21/2019 Dermatophytosis of nail [B35.1] 06/29/2008 04/20/2020 Corns and callosities [L84] 06/29/2008 04/16/2017 Unspecified Iron Deficiency Anemia [D50.9] 09/21/2008 EDEMA [R60.9] 09/21/2008 Ulcer of heel and midfoot (HCC) [L97.409] 02/08/2009 04/16/2017 Chronic pain [G89.29] 09/24/2009 02/21/2019 Fibromyalgia [M79.7] 09/24/2009 Neuropathy [G62.9] 09/24/2009 Elbow joint pain [M25.529] 09/24/2009 04/20/2020 Generalized pain [R52] 10/01/2009 02/21/2019 ACL tear [S83.519A] 11/26/2009 04/20/2020 Knee pain [M25.569] 11/26/2009 04/20/2020 Tendonitis [M77.9] 02/26/2010 04/20/2020 Vitamin D defi (more content not included)... Normal [facility] 01-18-2024 [facility] Telephone (JOSYWS) ---- Margareth GONZALEZ ([id number]) 1965 F Date Time Provider Department 01/18/24 IGNACIO CHEATHAM During your visit today, we recorded the following information about you: Arnold Bocanegra LPN 01/18/2024 9:07 AM Signed Patient calling said her insurance is not covering any of her medications. She was asking for referral to pharmacy, last time pharmacist helped her with that. Advised Social Work can assist with patient assistance programs. Please advise Ignacio Cheatham MD 01/18/2024 9:09 AM Signed Cristal Montague MA 01/18/2024 9:46 AM Signed Please call pt to set up appt with Pharmacist. Cristal Carcamo MA Allergies As of Date: 01/18/2024 Noted Allergy Reaction VICODIN (HYDROCODONE-ACETAM INOPHE*09/23/2007 11 - Vomiting BALSAM 115 09/23/2007 BALSAM JUAN 09/10/2022 16 - Unknown BARIUM SULFATE 05/01/2023 16 - Unknown BENADRYL ALLERGY DECONGESTANT 05/01/2023 9 - Itching BENADRYL (DIPHENHYDRAMINE HCL) 09/23/2007 2 - Rash 9 - Itching CODEINE 09/23/2007 11 - Vomiting 14 - Other: See Comments LISINOPRIL 05/26/2008 15 - Contraindication-Me dical Cornell* Comments: Acute renal failure MOLD 09/23/2007 NSAIDS (NON-STEROIDAL ANTI-INFLAM* 013 14 - Other: See Comments Comments: Unable to take nsaids after having gastric bypass. PENICILLINS 09/23/2007 10 - Anaphylaxis SEASONAL ALLERGIES 12/14/2008 14 - Other: See Comments Comments: Nose runs, sneezing... TETRACYCLINE 09/23/2007 2 - Rash VANILLA EXTRACT 09/23/2007 VANILLA EXTRACT FLAVOR 09/10/2022 16 - Unknown Date Reviewed: 12/30/2023 Reviewed by: Dorene Murillo MD - Fully Assessed Reason for Visit: Referral Request [124] Primary Visit Diagnosis:Type 2 diabetes, controlled, 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] Order(s):CONSULT TO PHARMACY [940045] Order #: [id number]: 1 Prescriptions as of 02/16/2024 - hydrOXYzine HCl (ATARAX) 50 mg tablet Take 1 tablet by mouth every 6 hours as needed for itching/rash. - ondansetron orally disintegrating (ZOFRAN ODT) 4 mg disintegrating tablet Take 1 tablet by mouth every 8 hours as needed for nausea/vomiting. - NIFEdipine ER (PROCARDIA XL) 30 mg 24 hr tablet Take 1 tablet by mouth every afternoon. - sevelamer carbonate (RENVELA) 800 mg tablet Take 1 tablet by mouth three times a day with meals. Ordered by dialysis - glipiZIDE (GLUCOTROL XL) 5 mg 24 hr tablet Take 10 mg by mouth. Per endocrinology - DULoxetine (CYMBALTA) 30 mg capsule Take 1 capsule by mouth once daily. - amitriptyline (ELAVIL) 100 mg tablet Take 1 tablet by mouth daily at bedtime. - atorvastatin (LIPITOR) 40 mg tablet Take 1 tablet by mouth daily at bedtime. For cholesterol. - omeprazole (PRILOSEC) 20 mg capsule Take 1 capsule by mouth once daily. - sertraline (ZOLOFT) 50 mg tablet Take 1 tablet by mouth once daily. - TRULICITY 1.5 mg/0.5 mL pen injector INJECT 1.5 MG UNDER THE SKIN ONCE A WEEK - acetaminophen (TYLENOL) 500 mg tablet Take 1,000 mg by mouth every 12 hours. - calcitriol (ROCALTROL) 0.25 mcg capsule Take 0.25 mcg by mouth once daily. Per diaylsis - melatonin 5 mg tablet Take 5 mg by mouth. As needed. - flash glucose scanning reader (SimpleReachSTYLE FESTUS 2 READER) Use to check glucose 3 times daily and continuously. 1 per year. - flash glucose sensor (FREESTYLE FESTUS 2 SENSOR) kit Use to check glucose 3 times daily and continuously. Change every 14 days. 6 per 90 day supply. - cholecalciferol (VITAMIN D3) 5,000 unit tab Take 5,000 Units by mouth twice daily. - aspirin, enteric coated (ADULT LOW DOSE ASPIRIN) 81 mg EC tablet Take 1 tablet by mouth once daily. - Azjjxniu-Ih-Ift-Fe- FA ( VITAMIN) ORAL Tab Take 1 tablet by mouth once daily. Meds Comments as of 11/28/2017: Pt states all meds were just gone over. Did not go over meds. Swathi Haddad Ma November 28, 2017 Problem List As Of Date 01/18/2024 Noted Resolved Acute gastritis [K29.00] 12/16/2007 08/04/2022 DM w/o complication type II, uncontrolled [IMO0*03/09/2008 12/07/2014 Routine gynecological examination [Z01.419] 03/09/2008 04/16/2017 Class: Chronic OBESITY NOS [E66.9] 03/09/2008 Acute anemia [D64.9] 03/09/2008 Background diabetic retinopathy (HCC) [E11.3299] 9 Asthma [J45.909] 03/09/2008 DIABETIC FOOT ULCER [L97.509] 03/09/2008 04/16/2017 CHOLELITHIASIS NOS [K80.20] 03/09/2008 Bipolar disorder, unspecified (HCC) [F31.9] 03/09/2008 Essential hypertension, benign [I10] 03/27/2008 03/16/2015 Primary hypertension [I10] Type 2 diabetes mellitus with stage 4 chronic k* Pain in limb [M79.609] 06/29/2008 02/21/2019 Dermatophytosis of nail [B35.1] 06/29/2008 04/20/2020 Corns and callosities [L84] 06/29/2008 04/16/2017 Unspecified Iron Deficiency Anemia [D50.9] 09/21/2008 EDEMA [R60.9] 09/21/2008 Ulcer of heel and midfoot (HCC) [L97.409] 02/08/2009 04/16/2017 C (more content not included)... Normal [facility] 01-12-2024 [facility] Telephone (FAMWS) ---- Margareth GONZALEZ ([id number]) 1965 F Date Time Provider Department 01/12/24 [facility] During your visit today, we recorded the following information about you: Sha Myrick MD 01/12/2024 9:50 PM Signed Let patient know her sleep study shows sleep apnea. Order placed to see sleep med. Elenita Ellison LPN 01/13/2024 9:19 AM Signed Left message to call office. 01/13/2024 9:18 AM. NEHAL Roque Tara, LPN 01/14/2024 5:33 PM Signed MyChart message also sent to patient. Arnold Bocanegra LPN 01/18/2024 9:04 AM Signed Patient returned call and went over results, notes from Dr Myrick with understanding. Assisted with transfer to senior power scheduler to get Sleep Med appt set up. Allergies As of Date: 01/12/2024 Noted Allergy Reaction VICODIN (HYDROCODONE-ACETAM INOPHE*09/23/2007 11 - Vomiting BALSAM 115 09/23/2007 BALSAM JUAN 09/10/2022 16 - Unknown BARIUM SULFATE 05/01/2023 16 - Unknown BENADRYL ALLERGY DECONGESTANT 05/01/2023 9 - Itching BENADRYL (DIPHENHYDRAMINE HCL) 09/23/2007 2 - Rash 9 - Itching CODEINE 09/23/2007 11 - Vomiting 14 - Other: See Comments LISINOPRIL 05/26/2008 15 - Contraindication-Me dical Cornell* Comments: Acute renal failure MOLD 09/23/2007 NSAIDS (NON-STEROIDAL ANTI-INFLAM* 013 14 - Other: See Comments Comments: Unable to take nsaids after having gastric bypass. PENICILLINS 09/23/2007 10 - Anaphylaxis SEASONAL ALLERGIES 12/14/2008 14 - Other: See Comments Comments: Nose runs, sneezing... TETRACYCLINE 09/23/2007 2 - Rash VANILLA EXTRACT 09/23/2007 VANILLA EXTRACT FLAVOR 09/10/2022 16 - Unknown Date Reviewed: 12/30/2023 Reviewed by: Dorene Murillo MD - Fully Assessed Reason for Visit: Results [95] Primary Visit Diagnosis:CASSIE (obstructive sleep apnea) [G47.33] Order(s):CONSULT TO SLEEP MEDICINE - ADULT [[id number]] Order #: [id number]: 1 FUTURE Prescriptions as of 01/18/2024 - hydrOXYzine HCl (ATARAX) 50 mg tablet Take 1 tablet by mouth every 6 hours as needed for itching/rash. - ondansetron orally disintegrating (ZOFRAN ODT) 4 mg disintegrating tablet Take 1 tablet by mouth every 8 hours as needed for nausea/vomiting. - NIFEdipine ER (PROCARDIA XL) 30 mg 24 hr tablet Take 1 tablet by mouth every afternoon. - sevelamer carbonate (RENVELA) 800 mg tablet Take 1 tablet by mouth three times a day with meals. Ordered by dialysis - glipiZIDE (GLUCOTROL XL) 5 mg 24 hr tablet Take 10 mg by mouth. Per endocrinology - DULoxetine (CYMBALTA) 30 mg capsule Take 1 capsule by mouth once daily. - amitriptyline (ELAVIL) 100 mg tablet Take 1 tablet by mouth daily at bedtime. - atorvastatin (LIPITOR) 40 mg tablet Take 1 tablet by mouth daily at bedtime. For cholesterol. - omeprazole (PRILOSEC) 20 mg capsule Take 1 capsule by mouth once daily. - sertraline (ZOLOFT) 50 mg tablet Take 1 tablet by mouth once daily. - TRULICITY 1.5 mg/0.5 mL pen injector INJECT 1.5 MG UNDER THE SKIN ONCE A WEEK - acetaminophen (TYLENOL) 500 mg tablet Take 1,000 mg by mouth every 12 hours. - calcitriol (ROCALTROL) 0.25 mcg capsule Take 0.25 mcg by mouth once daily. Per diaylsis - melatonin 5 mg tablet Take 5 mg by mouth. As needed. - flash glucose scanning reader (SimpleReachSTYLE FESTUS 2 READER) Use to check glucose 3 times daily and continuously. 1 per year. - flash glucose sensor (FREESTYLE FESTUS 2 SENSOR) kit Use to check glucose 3 times daily and continuously. Change every 14 days. 6 per 90 day supply. - cholecalciferol (VITAMIN D3) 5,000 unit tab Take 5,000 Units by mouth twice daily. - aspirin, enteric coated (ADULT LOW DOSE ASPIRIN) 81 mg EC tablet Take 1 tablet by mouth once daily. - Ncixejqd-Bi-Nog-Fe- FA ( VITAMIN) ORAL Tab Take 1 tablet by mouth once daily. Meds Comments as of 11/28/2017: Pt states all meds were just gone over. Did not go over meds. Swathi Haddad Ma November 28, 2017 Problem List As Of Date 01/12/2024 Noted Resolved Acute gastritis [K29.00] 12/16/2007 08/04/2022 DM w/o complication type II, uncontrolled [IMO0*03/09/2008 12/07/2014 Routine gynecological examination [Z01.419] 03/09/2008 04/16/2017 Class: Chronic OBESITY NOS [E66.9] 03/09/2008 Acute anemia [D64.9] 03/09/2008 Background diabetic retinopathy (HCC) [E11.3299] 9 Asthma [J45.909] 03/09/2008 DIABETIC FOOT ULCER [L97.509] 03/09/2008 04/16/2017 CHOLELITHIASIS NOS [K80.20] 03/09/2008 Bipolar disorder, unspecified (HCC) [F31.9] 03/09/2008 Essential hypertension, benign [I10] 03/27/2008 03/16/2015 Primary hypertension [I10] Type 2 diabetes mellitus with stage 4 chronic k* Pain in limb [M79.609] 06/29/2008 02/21/2019 Dermatophytosis of nail [B35.1] 06/29/2008 04/20/2020 Corns and callosities [L84] 06/29/2008 04/16/2017 Unspecified Iron Deficiency Anemia [D50.9] 09/21/2008 EDEMA [R60.9] 09/21/2008 (more content not included)... Normal [facility] POLYSOMNOGRAM (PSG)/HOME SLE EP APNEA TEST (HSAT)on 01-05-2024 POLYSOMNOGRAM (PSG)/HOME SLEEP APNEA TEST (HSAT) [facility] at [address], [address], [place] [address] ; Home Sleep Apnea Test (HSAT) Study Report Name: Margareth GONZALEZ Date of Study: 01/05/2024 [facility]#: [id number] Age: 58 (: 1965) ESS: N/A Neck Circ. (cm): N/A Height (cm): 172.7 Weight (kg): 84.2 BMI: 28.2 Referring Provider: IGNACIO CHEATHAM Mailcode: WO10 Sleep history: The patient is a 58 year old female with a history of obstructive sleep apnea. The patient was diagnosed at an outside facility (results unavailable for review). The patient is not currently using PAP due to intolerance and is here for reassessment of obstructive sleep apnea. The patient does not endorse a habitual sleep position. Pertinent medical history: Allergic Rhinitis, Asthma, Depression, Diabetes, GERD, Hyperlipidemia, Hypertension, Insomnia, Obstructive sleep apnea, Anemia Medications: Acetaminophen, Amitriptyline, Aspirin, Atorvastatin, Calcitriol, Cymbalta, Melatonin, Omeprazole, Zofran Sleep procedure: PSG unattended Type III, minimum of 4 parameters (58501) Procedure: This study was performed using a Type III ambulatory PSG device and was unattended. The patient was instructed on proper use of the device by a registered veterinary surgery technologist. The monitored parameters included heart rate, oxygen saturation, continuous airflow with thermistor and nasal pressure transducer, snoring via nasal pressure transducer, chest and abdominal effort, and body position. NILSA definition: Respiratory event index (NILSA), calculated as respiratory events x 60 / TRT (total recording time in minutes). Note: the apnea hypopnea index has been replaced by the respiratory event index for home sleep apnea test. Since the home sleep apnea test does not measure sleep, the NILSA is most accurate index of respiratory events. The NILSA is a surrogate of the AHI per the AASM Manual for Scoring of Sleep and Associated Events version 3. Apnea definition: The peak signal excursions drop by >90% of pre-event baseline using an oronasal thermal sensor (diagnostic study), PAP device flow (titration study) or an alternative apnea sensor (diagnostic study). The duration of the >90% drop in signal excursion is >=10 seconds. Hypopnea definition: The peak signal excursions drop by >= 30% of pre-event baseline using nasal pressure (diagnostic study), PAP device flow (titration study) or an alternative hypopnea sensor (diagnostic study). The duration of the >= 30% drop in signal excursion is >=10 seconds. There is a greater than or equal to 3% oxygen desaturation from pre-event baseline. RESPIRATORY DATA: The study started at 21:26:01 and ended at 08:36:42 and the total recording time was 671 minutes. By convention, sleep is assumed for the whole recording. Snoring was noted. There was a total of 110 respiratory events. Of these events, the total number of apneas was 3 (3 obstructive, 0 mixed, and 0 central (0.0%)) and 107 hypopneas. The central apnea index (NOEMI) was 0.0. The respiratory event index (NILSA) was 9.8 events per hour of study time. The mean oxygen saturation during the study was 96.0%, with a minimum oxygen saturation of 84.0%. The patient spent 0.7 minutes at oxygen saturation measured less than 90% (0.2% of recording time) and 0.4 minutes at oxygen saturation measured at or less than 88% (0.1% of recording time). Time NILSA/AHI Supine 164.5 min 10.9 Off-Supine 506.5 min 9.5 Total 671.0 min 9.8 ECG DATA: The average heart rate was 93 bpm with a range of 85 bpm to 113 bpm. ICSD DIAGNOSIS: Obstructive Sleep Apnea Syndrome [G47.33] IMPRESSION/RECOMMEN DATIONS: 1. This study confirms a diagnosis of at least mild obstructive sleep apnea. 2. The results of this study may represent an underestimation of the degree of obstructive sleep apnea, especially hypopneas, because of the known limitations of HSAT, such as inability to record arousals because EEG is not recorded. 3. Treatment of mild sleep apnea can include weight loss, positional therapy, treatment of allergies, oral appliance therapy or ENT evaluation of any airway abnormalities. PAP therapy may be considered in patients with documented symptoms of daytime sleepiness, impaired cognition, mood disorder, insomnia, or documented hypertension, ischemic heart disease, or history of stroke. INTERPRETING PHYSICIAN: Fady Chaney DO, JAMIE I attest that I have performed epoch by epoch review of the entire raw data and find this study to be technically adequate. 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 [facility] Radiology Study observation (narrative) [facility] CNOVon 12-25-2023 CNOV Office Visit (FAMPWS) ---- Margareth GONZALEZ ([id number]) 1965 F [place] Date Time Provider Department 12/25/23 9:40 AM IGNACIO CHEATHAMWS During your visit today, we recorded the following information about you: Pulse Blood pressure Weight 113/minute 118/58 84.2 kg Ignacio Cheatham MD 12/25/2023 12:49 PM Signed Patient presents with: Follow Up HPI: Patient presents today for office visit for follow up. Wants to start aqua therapy. Will let me know when ready. Starting training for home dialysis. Overall doing well. Not using anything for sleep at this time. Used to be on autopap. Did have hypoxia noted at hs at times. Has not needed in a while. Has known apnea and has probable snoring. Is fatigued. Diabetes: Sugars have been up some. During move her family lost some Trulicity waiting on next available fill. Since has Medicaid unable to use coupon/copay card. Wants to change to [employer] in town. Has [employer] forms to complete for disability. Has not worked since her leg was first broken. Bp is good. No chest pain No shortness of breath. No edema. Using electric scooter to ambulate at times. Did have a fall. Went to er after hitting her face. Had ct of head etc. Doing well. Emotionally is doing well. A1c and lipid are ordered. Note was copied and pasted, without alteration from Tresa's last note: Pt presents today for prescription renewal. Since last visit, she has had leg surgery. She has been home for about two months. Needs refills. 01/19/23 -- tib fib. Pathological fx. Had ORIF. Somewhere around April or May, - stephen broke. In May, -- [place] repair[place] Then it go infected. Had to have two more surgeries. She then went to [place]. Then she went 12 weeks, no weight bearing. Got out of alf 10/01. Refers that she was put on a ventilator at night. Had a sleep study. Equipment via [employer]. Hx of CASSIE. Not following with sleep med. No records available -- will try to obtain. Refers that she has an infection in her mouth or ear. Hurts all the time. Rinses with salt water. Aware that she needs dental work. Awaiting medicaid. She is on both sertraline and Cymbalta. She reports that they started on the Cymbalta for her chronic pain. Questions if this can be adjusted. Feels that the Cymbalta is more effective. MEDICATIONS: Current Outpatient Medications Medication Sig hydrOXYzine HCl (ATARAX) 50 mg tablet Take 1 tablet by mouth every 6 hours as needed for itching/rash. ondansetron orally disintegrating (ZOFRAN ODT) 4 mg disintegrating tablet Take 1 tablet by mouth every 8 hours as needed for nausea/vomiting. NIFEdipine ER (PROCARDIA XL) 30 mg 24 hr tablet Take 1 tablet by mouth every afternoon. sevelamer carbonate (RENVELA) 800 mg tablet Take 1 tablet by mouth three times a day with meals. Ordered by dialysis glipiZIDE (GLUCOTROL XL) 5 mg 24 hr tablet Take 10 mg by mouth. Per endocrinology DULoxetine (CYMBALTA) 30 mg capsule Take 1 capsule by mouth once daily. amitriptyline (ELAVIL) 100 mg tablet Take 1 tablet by mouth daily at bedtime. atorvastatin (LIPITOR) 40 mg tablet Take 1 tablet by mouth daily at bedtime. For cholesterol. omeprazole (PRILOSEC) 20 mg capsule Take 1 capsule by mouth once daily. sertraline (ZOLOFT) 50 mg tablet Take 1 tablet by mouth once daily. TRULICITY 1.5 mg/0.5 mL pen injector INJECT 1.5 MG UNDER THE SKIN ONCE A WEEK acetaminophen (TYLENOL) 500 mg tablet Take 1,000 mg by mouth every 12 hours. calcitriol (ROCALTROL) 0.25 mcg capsule Take 0.25 mcg by mouth once daily. Per diaylsis melatonin 5 mg tablet Take 5 mg by mouth. As needed. flash glucose scanning reader (FREESTYLE FESTUS 2 READER) Use to check glucose 3 times daily and continuously. 1 per year. flash glucose sensor (FREESTYLE FESTUS 2 SENSOR) kit Use to check glucose 3 times daily and continuously. Change every 14 days. 6 per 90 day supply. cholecalciferol (VITAMIN D3) 5,000 unit tab Take 5,000 Units by mouth twice daily. aspirin, enteric coated (ADULT LOW DOSE ASPIRIN) 81 mg EC tablet Take 1 tablet by mouth once daily. (Patient taking differently: Take 81 mg by mouth every morning.) Kvkcigjn-Hj-Pza-Fe- FA ( VITAMIN) ORAL Tab Take 1 tablet by mouth once daily. No current facility-administer ed medications for this visit. ALLERGIES: ALLERGIES Allergen Reactions Vicodin [Hydrocodon* Vomiting Balsam 115 Balsam Juan Unknown Barium Sulfate Unknown Benadryl Allergy De* Itching Benadryl [Diphenhyd* Rash, Itching Codeine Vomiting, Other: See Comments Lisinopril Contraindication-Me dical Surgical Acute renal failure Mold Nsaids (Non-Steroid* Other: See Comments Unable to take nsaids after having gastric bypass. Penicillins Anaphylaxis Seasonal Allergies Other: See Comments Nose runs, sneezing... (more content not included)... 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 At today's appointment, the patient reports doing well. The patient endorses well-controlled pain to the right knee. The patient denies incisional complications to the right knee including dehiscence, drainage and excessive pain. The patient is ambulatory. The patient endorses chronic arthritic left knee pain and is requesting a left knee joint corticosteroid injection. The patient denies nausea, night-sweats, fevers and chills. The patient has no additional orthopaedic traumatic complaints at this time. Reviewed nursing note and current pain scale. PAST MEDICAL HISTORY Diagnosis Date Acute gastritis without mention of hemorrhage Allergic rhinitis Anaphylaxis Anemia Back pain Benign essential tremor Bipolar I disorder, most recent episode (or current) unspecified sectrum Bone mass Candidiasis, intertrigo Chronic kidney disease Contraceptive management Depression Diabetes ([facility]) Diarrhea DVT, lower extremity ([facility]) 08/2014 Right leg (6) Esophagitis ESRD (end stage renal disease) ([facility]) 07/03/2022 Facial fracture due to fall ([facility]) ([facility]) Fatigue Fibromyalgia Fracture Fracture of shaft of fibula GERD (gastroesophageal reflux disease) HLD (hyperlipidemia) on tricor Hyperlipidemia Hypertension Hypomagnesemia Hypopotassemia IBS (irritable bowel syndrome) Insomnia Intertrigo Knee pain Morbid obesity ([facility]) 03/11/2011 Myalgia Nausea Neck pain Neuropathy Nocturnal leg cramps Non-cardiac chest pain Obesity CASSIE (obstructive sleep apnea) 07/08/2011 Other polyp of sinus Other specified anemias Personal history of unspecified urinary disorder PMH - PAST MEDICAL HISTORY OF left knee surgery x3 Pulmonary nodules Pyelonephritis, acute Restless leg Ruptured appendicitis S/P gastric bypass Snoring Type 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, not stated as uncontrolled(250.50 ) on oral medications and Lanuts Unspecified asthma(493.90) on inhalers Unspecified essential hypertension on medical management Upper abdominal pain Urinary frequency Vitamin D deficiency PAST SURGICAL HISTORY Procedure Laterality Date CHOLECYSTECTOMY 04/02/2011 COLONOSCOPY W/BIOPSY SINGLE/MULTIPLE 12/16/2007 DILATION AND CURETTAGE DXAND/THER NONOBSTETRIC Dilation AND curettage EGD TRANSORAL BIOPSY SINGLE/MULTIPLE 12/16/2007 ESOPHAGOGASTRODUODE NOSCOPY TRANSORAL DIAGNOSTIC age 14 EGD LAPAROSCOPIC APPENDECTOMY 05/16/2011 MIDLINE INSERTION/CONSULT 07/29/2012 Lap Paul-en-Y gastric bypass PAST SURGICAL HISTORY OF age 14 left knee surgery, for dislocation PAST SURGICAL HISTORY OF age 5 warts removed PAST SURGICAL HISTORY OF 03/02/2007 laser surgery to both eyes for diabetic retinopathy PAST SURGICAL HISTORY OF 04/26/2008 Bilateral eye surgery- vitrectomy PAST SURGICAL HISTORY OF 06/30/2008 Left eye air fluid exchange PAST SURGICAL HISTORY OF 04/09, 07/07 retinal vitrectomies PAST SURGICAL HISTORY OF Left 07/24/2022 Left forearm AVG with [address] Valenzuela STRESS TEST 200p, 2014 Normal results TUBAL LIGATION HX ablation at the same time FAMILY HISTORY Problem Relation Age of Onset Thyroid Father Blindness Mother Diabetic retinopathy Diabetes Mother from renal disease Coronary Artery Disease Mother other (Diabetic Retinaopathy) Mother Cancer Mother uterine Stroke Mother Kidney Disease Mother Thyroid Sister skin cancer Kidney Disease Sister Diabetes Sister Diabetes Sister Coronary Artery Disease Brother Diabetes Brother Coronary Artery Disease Brother Colon Cancer Other none Breast Cancer Other none Social History Tobacco Use Smoking status: Former Current packs/day: 0.00 Average packs/day: 2.0 packs/day for 6.0 years (12.0 ttl pk-yrs) Types: Cigarettes Start date: 08/01/1983 Quit date: 07/31/1989 Years since quittin.4 Smokeless tobacco: Never Tobacco comments: Quit at age 24 Vap (more content not included)... Normal [facility] Large Joint Arthro/Inj: L kn ee jointon 12-21-2023 Dorene Murillo MD 12/30/2023 11:15 AM Large Joint Arthro/Inj: L knee joint Informed Consent Consent Obtained: Verbal Oran Protocol A moment to CARE was completed. SIGN IN Personnel directly involved with the procedure wore the appropriate PPE. Patient/Surrogate Stated/Verified: Patient name, Date of , Relevant allergies and Intended procedure TIME OUT Intended patient and procedure match the source document(s). Relevant labs, photos, and/or imaging studies have been reviewed. Correct side/site marked and visible. Medications required for procedure verified. 12/21/2023 3:18 PM The procedure site was prepped in the usual sterile fashion. Site: L knee joint Medications: 80 mg triamcinolone acetonide 40 mg/mL Anesthetics: 5 mL lidocaine 10 mg/mL (1 %) Outcome: Tolerated well, no immediate complications Post-injection instructions were reviewed with the patient and the patient voiced understanding of these instructions. [facility] CNOVon 12-11-2023 CNOV Office Visit (FAMPWS) ---- Margareth GONZALEZ ([id number]) 1965 F [place] Date Time Provider Department 12/11/23 11:20 AM TRESA MARCUM During your visit today, we recorded the following information about you: Pulse Respiration Blood pressure Weight 102/minute 16/minute 130/72 85.9 kg Tresa Marcum, PATRICE.BENEFITS ADMINISTRATOR 12/11/2023 5:24 PM Signed This is a 58 year old female who presents today with: Patient presents with: Hospital F/U skilled care follow up HISTORY OF PRESENT ILLNESS: Margareth Goznalez is a 58 year old female. Patient presents with: Hospital F/U skilled care follow up Pt presents today for prescription renewal. Since last visit, she has had leg surgery. She has been home for about two months. Needs refills. 01/19/23 -- tib fib. Pathological fx. Had ORIF. Somewhere around April or May, - stephen broke. In May, -- had repair[facility] Then it go infected. Had to have two more surgeries. She then went to [place]. Then she went 12 weeks, no weight bearing. Got out of alf 10/01. Refers that she was put on a ventilator at night. Had a sleep study. Equipment via [employer]. Hx of CASSIE. Not following with sleep med. No records available -- will try to obtain. Refers that she has an infection in her mouth or ear. Hurts all the time. Rinses with salt water. Aware that she needs dental work. Awaiting medicaid. She is on both sertraline and Cymbalta. She reports that they started on the Cymbalta for her chronic pain. Questions if this can be adjusted. Feels that the Cymbalta is more effective. PAST MEDICAL HISTORY: PAST MEDICAL HISTORY Diagnosis Date Acute gastritis without mention of hemorrhage Allergic rhinitis Anaphylaxis Anemia Back pain Benign essential tremor Bipolar I disorder, most recent episode (or current) unspecified sectrum Bone mass Candidiasis, intertrigo Chronic kidney disease Contraceptive management Depression Diabetes (HCC) Diarrhea DVT, lower extremity (HCC) 08/2014 Right leg (6) Esophagitis ESRD (end stage renal disease) ([facility]) 07/03/2022 Facial fracture due to fall ([facility]) ([facility]) Fatigue Fibromyalgia Fracture Fracture of shaft of fibula GERD (gastroesophageal reflux disease) HLD (hyperlipidemia) on tricor Hyperlipidemia Hypertension Hypomagnesemia Hypopotassemia IBS (irritable bowel syndrome) Insomnia Intertrigo Knee pain Morbid obesity (HCC) 03/11/2011 Myalgia Nausea Neck pain Neuropathy Nocturnal leg cramps Non-cardiac chest pain Obesity CASSIE (obstructive sleep apnea) 07/08/2011 Other polyp of sinus Other specified anemias Personal history of unspecified urinary disorder PMH - PAST MEDICAL HISTORY OF left knee surgery x3 Pulmonary nodules Pyelonephritis, acute Restless leg Ruptured appendicitis S/P gastric bypass Snoring Type 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, not stated as uncontrolled(250.50 ) on oral medications and Lanuts Unspecified asthma(493.90) on inhalers Unspecified essential hypertension on medical management Upper abdominal pain Urinary frequency Vitamin D deficiency PAST SURGICAL HISTORY Procedure Laterality Date CHOLECYSTECTOMY 04/02/2011 COLONOSCOPY W/BIOPSY SINGLE/MULTIPLE 12/16/2007 DILATION AND CURETTAGE DXAND/THER NONOBSTETRIC Dilation AND curettage EGD TRANSORAL BIOPSY SINGLE/MULTIPLE 12/16/2007 ESOPHAGOGASTRODUODE NOSCOPY TRANSORAL DIAGNOSTIC age 14 EGD LAPAROSCOPIC APPENDECTOMY 05/16/2011 MIDLINE INSERTION/CONSULT 07/29/2012 Lap Paul-en-Y gastric bypass PAST SURGICAL HISTORY OF age 14 left knee surgery, for dislocation PAST SURGICAL HISTORY OF age 5 warts removed PAST SURGICAL HISTORY OF 03/02/2007 laser surgery to both eyes for diabetic retinopathy PAST SURGICAL HISTORY OF 04/26/2008 Bilateral eye surgery- vitrectomy PAST SURGICAL HISTORY OF 06/30/2008 Left eye air fluid exchange PAST SURGICAL HISTORY OF 04/09, 07/07 retinal vitrectomies PAST SURGICAL HISTORY OF Left 07/24/2022 Left forearm AVG with [address] Valenzuela STRESS TEST 200p, 2014 Normal results TUBAL LIGATION HX ablation at the same time ALLERGIES Vicodin [Hydrocodone-Acetam inophen], Balsam 115, Balsam Juan, Barium Sulfate, Benadryl Allergy Decongestant, Benadryl [Diphenhydramine Hcl], Codeine, Lisinopril, Mold, Nsaids (Non-Steroidal Anti-Inflammatory Drug), Penicillins, Seasonal Allergies, Tetracycline, Vanilla Extract, and Vanilla Extract Flavor MEDICATIONS Current Outpatient Medications Medication Sig DULoxetine (CYMBALTA) 20 mg capsule Take 20 mg by mouth once daily. senna (SENOKOT) 8.6 mg tab Take 1 tablet by mouth two times a day. (Patient taking differently: Take 8.6 mg by mouth once daily as needed for constipation.) sevelamer carbonate (RENVELA) 800 mg tabl (more content not included)... Normal [facility] 12-07-2023 [facility] Telephone (FAMPWS) ---- Margareth GONZALEZ ([id number]) 1965 F Date Time Provider Department 12/07/23 TRESA MARCUM During your visit today, we recorded the following information about you: Clare Singh RN 12/07/2023 1:09 PM Signed Pt called in and reports she has been home from the alf for 2 months and has been trying to get in with Dr Cheatham. I got her in with Tresa Marcum NP 12/11/23. Pt reports she had R knee surgery went to the [facility] and got an infection I her knee. She states she had to go back to [facility] to have subsequent surgery. Then Pt states she went to [place] after that for rehab. Allergies As of Date: 12/07/2023 Noted Allergy Reaction VICODIN (HYDROCODONE-ACETAM INOPHE*09/23/2007 11 - Vomiting BALSAM 115 09/23/2007 BALSAM JUAN 09/10/2022 16 - Unknown BARIUM SULFATE 05/01/2023 16 - Unknown BENADRYL ALLERGY DECONGESTANT 05/01/2023 9 - Itching BENADRYL (DIPHENHYDRAMINE HCL) 09/23/2007 2 - Rash 9 - Itching CODEINE 09/23/2007 11 - Vomiting 14 - Other: See Comments LISINOPRIL 05/26/2008 15 - Contraindication-Me dical Cornell* Comments: Acute renal failure MOLD 09/23/2007 NSAIDS (NON-STEROIDAL ANTI-INFLAM* 013 14 - Other: See Comments Comments: Unable to take nsaids after having gastric bypass. PENICILLINS 09/23/2007 10 - Anaphylaxis SEASONAL ALLERGIES 12/14/2008 14 - Other: See Comments Comments: Nose runs, sneezing... TETRACYCLINE 09/23/2007 2 - Rash VANILLA EXTRACT 09/23/2007 VANILLA EXTRACT FLAVOR 09/10/2022 16 - Unknown Date Reviewed: 09/18/2023 Reviewed by: Dorene Murillo MD - Fully Assessed Reason for Visit: Appointment [186] Prescriptions as of 12/07/2023 - labetalol (TRANDATE) 100 mg tablet Take 1 tablet by mouth two times a day. - senna (SENOKOT) 8.6 mg tab Take 1 tablet by mouth two times a day. - sevelamer carbonate (RENVELA) 800 mg tablet Take 800 mg by mouth three times a day with meals. - hydrOXYzine HCl (ATARAX) 50 mg tablet Take 1 tablet by mouth every 6 hours as needed for itching/rash. - ondansetron orally disintegrating (ZOFRAN ODT) 4 mg disintegrating tablet Take 1 tablet by mouth every 8 hours as needed for nausea/vomiting. - sertraline (ZOLOFT) 50 mg tablet Take 1 tablet by mouth once daily. - TRULICITY 1.5 mg/0.5 mL pen injector INJECT 1.5 MG UNDER THE SKIN ONCE A WEEK - acetaminophen (TYLENOL) 500 mg tablet Take 1,000 mg by mouth every 12 hours. - atorvastatin (LIPITOR) 40 mg tablet Take 1 tablet by mouth daily at bedtime. For cholesterol. - calcitriol (ROCALTROL) 0.25 mcg capsule Take 0.25 mcg by mouth once daily. Per diaylsis - melatonin 5 mg tablet Take 5 mg by mouth. As needed. - omeprazole (PRILOSEC) 20 mg capsule Take 1 capsule by mouth once daily. - amitriptyline (ELAVIL) 100 mg tablet Take 1 tablet by mouth daily at bedtime. - flash glucose scanning reader (Wannyi FESTUS 2 READER) Use to check glucose 3 times daily and continuously. 1 per year. - flash glucose sensor (FREESTYLE FESTUS 2 SENSOR) kit Use to check glucose 3 times daily and continuously. Change every 14 days. 6 per 90 day supply. - cholecalciferol (VITAMIN D3) 5,000 unit tab Take 5,000 Units by mouth twice daily. - aspirin, enteric coated (ADULT LOW DOSE ASPIRIN) 81 mg EC tablet Take 1 tablet by mouth once daily. - Jeguojmg-Jv-Axo-Fe- FA ( VITAMIN) ORAL Tab Take 1 tablet by mouth once daily. Meds Comments as of 11/28/2017: Pt states all meds were just gone over. Did not go over meds. Swathi Haddad Ma November 28, 2017 Problem List As Of Date 12/07/2023 Noted Resolved Acute gastritis [K29.00] 12/16/2007 08/04/2022 DM w/o complication type II, uncontrolled [IMO0*03/09/2008 12/07/2014 Routine gynecological examination [Z01.419] 03/09/2008 04/16/2017 Class: Chronic OBESITY NOS [E66.9] 03/09/2008 Acute anemia [D64.9] 03/09/2008 Background diabetic retinopathy (HCC) [E11.3299] 9 Asthma [J45.909] 03/09/2008 DIABETIC FOOT ULCER [L97.509] 03/09/2008 04/16/2017 CHOLELITHIASIS NOS [K80.20] 03/09/2008 Bipolar disorder, unspecified (HCC) [F31.9] 03/09/2008 Essential hypertension, benign [I10] 03/27/2008 03/16/2015 Primary hypertension [I10] Type 2 diabetes mellitus with stage 4 chronic k* Pain in limb [M79.609] 06/29/2008 02/21/2019 Dermatophytosis of nail [B35.1] 06/29/2008 04/20/2020 Corns and callosities [L84] 06/29/2008 04/16/2017 Unspecified Iron Deficiency Anemia [D50.9] 09/21/2008 EDEMA [R60.9] 09/21/2008 Ulcer of heel and midfoot (HCC) [L97.409] 02/08/2009 04/16/2017 Chronic pain [G89.29] 09/24/2009 02/21/2019 Fibromyalgia [M79.7] 09/24/2009 Neuropathy [G62.9] 09/24/2009 Elbow joint pain [M25.529] 09/24/2009 04/20/2020 Generalized pain [R52] 10/01/2009 02/21/2019 ACL tear [S83.519A] 11/26/2009 04/20/2020 Knee pain [M25.569] 11/26/2009 04/20/2020 Tendonitis [M77. (more content not included)... Normal [facility] Emergency Department Summary on 11-03-2023 Emergency Department Summary [facility] Medical Records Department [address] [address] Emergency Department Summary 11/03/23 MR#: [id number] Acct: [id number] Name: Margareth GONZALEZ Rep #: [id number] : 1965 58 From: Minh Arroyo DO PCP: Dr. Ignacio Cheatham MD Status:DEP ER Location: ED HPI History of Present Illness Chief Complaint: Fall Informant: patient and EMS Narrative Narrative: Patient is a 58-year-old female with past medical history of hypertension hyperlipidemia and diabetes as well as end-stage renal disease on dialysis. She states roughly 1 hour prior to arrival she was walking when she tripped and fell and struck the front of her head on the corner of her bed frame. She denies any loss of consciousness or history of bleeding disorder or blood thinner use. She states she was able to get back up following the injury but with the head trauma had concern for potential brain bleed or skull fracture and called EMS to be brought in for evaluation. She denies any light sensitivity nausea or vomiting or change in vision at this time. [facility] Medical History Fracture of fibula, right, closed Anemia Hyperkalemia Osteoarthritis of right knee Pathological fracture, right tibia, initial encounter for fracture Diabetes Dialysis patient Kidney disease GERD (gastroesophageal reflux disease) Sleep apnea Former smoker Asthma DVT (deep venous thrombosis) ESRD (end stage renal disease) on dialysis Fracture of right lower extremity Inability to walk Diabetes mellitus, type 2 Obesity Chronic anemia COPD with asthma Bipolar disorder Anxiety and depression HLD (hyperlipidemia) HTN (hypertension) Former tobacco use Neuropathy Fibromyalgia Kidney disease, chronic, stage IV (GFR 15-29 ml/min) History of tobacco use History of diabetes mellitus, type II History of COPD History of bipolar disorder Benign essential hypertension History of asthma Home Medications ???Medication ???Instructions ???Recorded ???Last Taken ???Type cholecalciferol (vitamin D3) 25 5,000 unit PO DAILY SUPPLEMENT 10/03/13 01/18/23 History mcg (1,000 unit) capsule (Vitamin D3) omeprazole 20 mg capsule,delayed 20 mg PO DAILY 08/23/14 01/18/23 History release glipizide 5 mg tablet 10 mg PO DAILY DIABETES 04/28/15 01/18/23 History melatonin 5 mg capsule 5 mg PO QHS 05/27/16 01/18/23 History amitriptyline 100 mg tablet 100 mg PO QHS DEPRESSION 09/10/22 01/18/23 History atorvastatin 40 mg tablet 40 mg PO QHS CHOLESTEROL 09/10/22 01/18/23 History calcitriol 0.25 mcg capsule 0.25 mcg PO BID 09/10/22 01/18/23 History dulaglutide 1.5 mg/0.5 mL 1.5 mg subcut CORNELL DIABETES 09/10/22 01/18/23 History subcutaneous pen injector (Trulicity) docusate sodium 100 mg capsule 100 mg PO DAILY STOOL SOFTENER #20 01/15/23 Unknown Rx (DOK) CAPSULES labetalol 100 mg tablet 100 mg PO BID blood pressure 02/04/23 Unknown History sevelamer carbonate 800 mg tablet 1,600 mg PO TID 02/04/23 Unknown History aspirin 81 mg capsule 81 mg PO DAILY 06/29/23 Unknown History hydroxyzine HCl 50 mg tablet 50 mg PO QHS 06/29/23 Unknown History vitamin with calcium 1 tab PO DAILY 06/29/23 Unknown History no.72-iron 27 mg-folic acid 1 mg tablet ( Vitamins Plus Low Iron) sertraline 50 mg tablet 50 mg PO DAILY 06/29/23 Unknown History acetaminophen 325 mg capsule 650 mg PO Q6H 07/02/23 Unknown History (Tylenol) ondansetron HCl 4 mg tablet 4 mg PO Q8H PRN PRN nausea and 07/02/23 Unknown History vomiting clindamycin HCl 300 mg capsule 300 mg PO Q6H #40 CAPSULES 07/24/23 Unknown Rx (Cleocin HCl) oxycodone-acetamino phen 5 mg-325 1 tab PO Q6H PRN PRN Pain 3 days 07/24/23 Unknown Rx mg tablet #12 TABLETS oxycodone 5 mg capsule 5 mg PO Q6H PRN pain 3 days #12 11/03/23 Unknown Rx caps Allergy/AdvReac Type Severity Reaction Status Date / Time balsam juan Allergy Unknown UNKNOWN Verified 11/02/23 22:08 mold Allergy Unknown unknown Verified 11/02/23 22:08 lisinopril Allergy unknown Verified 11/02/23 22:08 Penicillins Allergy Anaphylaxis Verified 11/02/23 22:08 tetracycline (Tetracycline) Allergy Anaphylaxis Verified 11/02/23 22:08 codeine AdvReac Abd Verified 11/02/23 22:08 cramps/diarrhea diphenhydramine HCl (From AdvReac Upset Verified 11/02/23 22:08 Benadryl) Stomach hydrocodone bitartrate (From AdvReac Abd Verified 11/02/23 22:08 Vicodin) cramps/diarrhea NSAIDS (Non-Steroidal AdvReac Unknown Verified 11/02/23 22:08 Anti-Inflamma Family History Mother Heart disease Hypertension Diabetes Kidney disease Father Diabetes Surgical History History o (more content not included)... Normal [facility] Brain/Head without Contrasto n 11-02-2023 Brain/Head without Contrast [facility] Imaging Services [address] [place] [address] Brain/Head without Contrast MR#: [id number] Acct: [id number] Name: Margareth GONZALEZ Rep #: [id number] : 1965 F 58 From: Sha Adkins MD PCP: Dr. Ignacio Cheatham MD Status: DEP ER Study: Brain/Head without Contrast Date of Exam: 04/25 Exam# [id number] Ordering Dr: Minh Arroyo DO [id number] INDICATION: head injury EXAMINATION: CT BRAIN - CT Head or Brain W/O Contrast Injection TECHNIQUE: Multiple axial images were obtained of the head with sagittal and coronal reconstructed images. Individualized dose optimization techniques were used for this CT. IV contrast dosage and agent: None. COMPARISON: 10/31/2023 CT. FINDINGS: BRAIN PARENCHYMA: No evidence of an acute infarct or intracranial hemorrhage. No evidence of a mass. CSF SPACES: The ventricles, sulci and subarachnoid cisterns are appropriate for age. CALVARIUM, SKULL BASE, PARANASAL SINUSES AND MASTOID AIR CELLS: No fracture. Mastoid air cells are clear. Right maxillary sinus mucous retention cyst. Right frontal/right supraorbital scalp hematoma. ORBITS: The globes, extraocular muscles, optic nerves and retrobulbar fat are unremarkable. CT/Brain/Head without Contrast IMPRESSION: No fracture or acute intracranial abnormality. Electronically Signed: Sha Adkins DO at 0:10 EDT , CC: Dr. Ignacio Cheatham MD; Minh Arroyo DO Allergist/Md: Signed Normal [facility] Knee 3 Viewson 11-02-2023 Knee 3 Views [facility] Imaging Services [address] [place] [address] Knee 3 Views MR#: [id number] Acct: [id number] Name: GONZALEZMargareth BARRETT Rep #: [id number] : 1965 F 58 From: Sha Adkins MD PCP: Dr. Ignacio Cheatham MD Status: REG ER Study: Knee 3 Views Date of Exam: 11/02/23 Exam# [id number] Ordering Dr: Minh Arroyo DO -[id number] INDICATION: pain EXAMINATION/TECHNIQ UE: X-RAY - RIGHT XR Knee 3 Views COMPARISON: 10/31/2023. FINDINGS: SOFT TISSUES: Vascular calcifications. Small suprapatellar effusion. BONES/JOINTS: Stable subacute healing fracture of the proximal tibia and stable surrounding internal fixation hardware. Stable chronic/healed fracture of the proximal fibula. RAD/Knee 3 Views IMPRESSION: 1. No evidence of an acute fracture or dislocation. 2. Stable subacute healing fracture of the proximal tibia with associated internal fixation hardware. 3. Small effusion. Electronically Signed: Sha Adkins DO at 0:05 EDT Reading Location ID and State: [facility] / [place] Tel , Service support , CC: Dr. Ignacio Cheatham MD; Minh Arroyo DO Allergist/Md: Signed Normal [facility] Spine Cervical without Contr ason 11-02-2023 Spine Cervical without Contras [facility] Imaging Services [address] [place] [address] Spine Cervical without Contras MR#: [id number] Acct: [id number] Name: Margareth GONZALEZH Rep #: [id number] : 1965 F 58 From: Sha Adkins MD PCP: Dr. Ignacio Cheatham MD Status: [facility] ER Study: Spine Cervical without Contras Date of Exam: 0 11/02/23 Exam# [id number] Ordering Dr: Minh Arroyo DO -[id number] INDICATION: injury EXAMINATION: CT Spine Cervical W/O Contrast Injection TECHNIQUE: Helically acquired images were obtained of the cervical spine with sagittal and coronal reconstructed images. Individualized dose optimization techniques were used for this CT. IV contrast dosage and agent: None. COMPARISON: 10/31/2023 CT. FINDINGS: VERTEBRAE: No fracture or subluxation. The craniocervical junction is unremarkable. Moderate to severe degenerative changes. NECK SOFT TISSUES: The prevertebral soft tissues are unremarkable. No pathologically enlarged lymph nodes. THYROID: Unremarkable. LUNG APICES: Unremarkable. CT/Spine Cervical without Contras IMPRESSION: No fracture or subluxation. Electronically Signed: Sha Adkins DO at 0:16 EDT , CC: Dr. Ignacio Cheatham MD; Minh Arroyo DO Allergist/Md: Signed Normal [facility] Brain/Head without Contrasto n 10-31-2023 Brain/Head without Contrast [facility] Imaging Services [address] [place] [id number] Brain/Head without Contrast MR#: [id number] Acct: [id number] Name: Margareth GONZALEZ Rep #: [id number] : 1965 F 58 From: Rufino Rosado MD PCP: Dr. Ignacio Cheatham MD Status: [facility] Study: Brain/Head without Contrast Date of Exam: 10/02 03/25 Exam# [id number] Ordering Dr: Sylvester Winston DO [id number] STUDY: CT BRAIN WITHOUT CONTRAST REASON FOR EXAM: Female, 58 years old. Severe headache RADIATION DOSAGE (If Supplied By Facility): CTDIvol = ( 44.99 ) mGy, DLP = ( 796.11 ) mGycm TECHNIQUE: Transaxial CT imaging of the brain was performed without administration of intravenous contrast material. Individualized dose optimization techniques were used for this CT. COMPARISON: No relevant priors. FINDINGS: Normal soft tissue structures. Normal calvarium. Normal size ventricles and extra-axial spaces for the patient''s age. Normal white matter tracts of the cerebral hemispheres. Normal basal ganglia and thalami. Normal brainstem. Normal cerebellum. There is no intracranial hemorrhage. There are no findings of an acute ischemic infarction. Normal visualized paranasal sinuses. CT/Brain/Head without Contrast IMPRESSION: No acute intracranial hemorrhage, midline shift or mass effect. Electronically Signed: Rolando Rosado MD at 8:12 EDT , CC: Dr. Sylvester Winston DO; Dr. Ignacio Cheatham MD Allergist/Md: Signed Normal [facility] Emergency Department Summary on 10-31-2023 Emergency Department Summary [facility] Medical Records Department [address] [place] [id number] Emergency Department Summary 10/31/23 MR#: [id number] Acct: [id number] Name: Margareth GONZALEZ Rep #: [id number] : 1965 58 From: Sylvester Winston DO PCP: Dr. Ignacio Cheatham MD Status:DEP ER Location: ED HPI HPI - Fall History of Present Illness Chief Complaint: Fall Informant: patient Occured/Mechanism Occurred: Today Mechanism/Context: Yes same level fall and Yes trip Pain/Injury Location: Right side of head, neck, and right lower leg Pain Location: head, neck and lower extremity Quality of Pain: Throbbing Worsened by: Nothing Relieved by: Nothing Associated Symptoms Associated Symptoms: Negative for Parasthesias, Weakness, Loss of function, Inability to ambulate or Loss of consciousness Narrative Narrative: Patient presents after a fall today. Patient states she tripped over her oxygen concentrator and fell forward. Patient states she hit the right side of her head. Patient complains of pain over the right side of her head and right side of her neck. Patient also hit her right lower leg. Patient denies any loss of consciousness. Patient denies any paresthesias or weakness. Patient describes her pain as throbbing. Patient states nothing makes it worse and nothing makes it better. Patient denies any other injuries. [facility] Medical History Fracture of fibula, right, closed Anemia Hyperkalemia Osteoarthritis of right knee Pathological fracture, right tibia, initial encounter for fracture Diabetes Dialysis patient Kidney disease GERD (gastroesophageal reflux disease) Sleep apnea Former smoker Asthma DVT (deep venous thrombosis) ESRD (end stage renal disease) on dialysis Fracture of right lower extremity Inability to walk Diabetes mellitus, type 2 Obesity Chronic anemia COPD with asthma Bipolar disorder Anxiety and depression HLD (hyperlipidemia) HTN (hypertension) Former tobacco use Neuropathy Fibromyalgia Kidney disease, chronic, stage IV (GFR 15-29 ml/min) History of tobacco use History of diabetes mellitus, type II History of COPD History of bipolar disorder Benign essential hypertension History of asthma Home Medications ???Medication ???Instructions ???Recorded ???Last Taken ???Type cholecalciferol (vitamin D3) 25 5,000 unit PO DAILY SUPPLEMENT 10/03/13 01/18/23 History mcg (1,000 unit) capsule (Vitamin D3) omeprazole 20 mg capsule,delayed 20 mg PO DAILY 08/23/14 01/18/23 History release glipizide 5 mg tablet 10 mg PO DAILY DIABETES 04/28/15 01/18/23 History melatonin 5 mg capsule 5 mg PO QHS 05/27/16 01/18/23 History amitriptyline 100 mg tablet 100 mg PO QHS DEPRESSION 09/10/22 01/18/23 History atorvastatin 40 mg tablet 40 mg PO QHS CHOLESTEROL 09/10/22 01/18/23 History calcitriol 0.25 mcg capsule 0.25 mcg PO BID 09/10/22 01/18/23 History dulaglutide 1.5 mg/0.5 mL 1.5 mg subcut CORNELL DIABETES 09/10/22 01/18/23 History subcutaneous pen injector (Trulicity) docusate sodium 100 mg capsule 100 mg PO DAILY STOOL SOFTENER #20 01/15/23 Unknown Rx (DOK) CAPSULES labetalol 100 mg tablet 100 mg PO BID blood pressure 02/04/23 Unknown History sevelamer carbonate 800 mg tablet 1,600 mg PO TID 02/04/23 Unknown History aspirin 81 mg capsule 81 mg PO DAILY 06/29/23 Unknown History hydroxyzine HCl 50 mg tablet 50 mg PO QHS 06/29/23 Unknown History vitamin with calcium 1 tab PO DAILY 06/29/23 Unknown History no.72-iron 27 mg-folic acid 1 mg tablet ( Vitamins Plus Low Iron) sertraline 50 mg tablet 50 mg PO DAILY 06/29/23 Unknown History acetaminophen 325 mg capsule 650 mg PO Q6H 07/02/23 Unknown History (Tylenol) ondansetron HCl 4 mg tablet 4 mg PO Q8H PRN PRN nausea and 07/02/23 Unknown History vomiting clindamycin HCl 300 mg capsule 300 mg PO Q6H #40 CAPSULES 07/24/23 Unknown Rx (Cleocin HCl) oxycodone-acetamino phen 5 mg-325 1 tab PO Q6H PRN PRN Pain 3 days 07/24/23 Unknown Rx mg tablet #12 TABLETS Allergy/AdvReac Type Severity Reaction Status Date / Time lety juan Allergy Unknown UNKNOWN Verified 10/31/23 06:46 mold Allergy Unknown unknown Verified 10/31/23 06:46 lisinopril Allergy unknown Verified 10/31/23 06:46 Penicillins Allergy Anaphylaxis Verified 10/31/23 06:46 tetracycline (Tetracycline) Allergy Anaphylaxis Verified 10/31/23 06:46 codeine AdvReac Abd Verified 10/31/23 06:46 cramps/diarrhea diphenhydramine HCl (From AdvReac Upset Verified 10/31/23 06:46 Benadryl) Stomach hydrocodone bitartrate (From AdvReac Abd Verified 10/31/23 06:46 Vicodin) cramps/diarrhea NSAIDS (Non-Steroidal AdvReac Unknown Verified 10/31/23 06:46 Anti-Inflamma Family History (Reviewed 06/29/23 @ (more content not included)... Normal [facility] Spine Cervical without Contr ason 10-31-2023 Spine Cervical without Contras [facility] Imaging Services [address] [place], [place] [id number] Spine Cervical without Contras MR#: [id number] Acct: [id number] Name: Margareth GONZALEZ Rep #: [id number] : 1965 F 58 From: Rufino Rosado MD PCP: Dr. Ignacio Cheatham MD Status: REG ER Study: Spine Cervical without Contras Date of Exam: 0 10/31/23 Exam# [id number] Ordering Dr: Sylvester Winston DO [id number] STUDY: CT CERVICAL SPINE WITHOUT CONTRAST REASON FOR EXAM: Female, 58 years old. injury/pain RADIATION DOSAGE (If Supplied By Facility): CTDIvol = ( 23.94 ) mGy, DLP = ( 485.77 ) mGycm TECHNIQUE: High resolution transaxial imaging was performed without contrast material. Sagittal and coronal images were reconstructed. Individualized dose optimization techniques were used for this CT. COMPARISON: None FINDINGS: Normal craniovertebral junction. There are degenerative changes of the anterior atlantoaxial articulation. Normal odontoid process. There is straightening of the normal cervical lordosis, likely positional or due to pain. Normal vertebral bodies and posterior osseous elements. C2-3: Normal endplates. Normal disc height and morphology. Normal central canal and intervertebral neuroforamina. C3-4: Sclerotic endplate changes with broad-based partially calcified disc bulge. There is impingement upon and flattening the anterior aspect of the thecal sac with the central canal measuring 9 mm at this level. There is bilateral foraminal narrowing due to the disc bulge and facet joint hypertrophy. C4-5: Irregular endplates with disc space narrowing and broad-based central disc bulge. There is impingement upon and flattening of the anterior aspect of the thecal sac, the central canal measures 9.4 mm at this level. There is bilateral foraminal narrowing due to the disc bulge and facet joint hypertrophy. C5-6: Normal endplates. Mild disc space narrowing with a broad-based central disc bulge. This is impinging upon and flattening the anterior aspect of the thecal sac. The central canal measures 1 cm at this level. There is bilateral foraminal narrowing due to the prominent disc bulge and facet joint hypertrophy. C6-7: Normal endplates. Disc space narrowing without central canal narrowing, there is bilateral foraminal narrowing due to facet joint hypertrophy. C7-T1: Normal endplates. Disc space narrowing.. Normal central canal and intervertebral neuroforamina. Dense calcifications noted in the periphery of the distal vertebral arteries. Peripheral calcification is noted in the carotid artery bulbs. No airway narrowing or deviation. Thyroid gland is unremarkable, lung apices are clear. CT/Spine Cervical without Contras IMPRESSION: Multilevel degenerative changes as described with borderline central canal stenosis from C3-4 through C5-6 due to combination of degenerative factors and broad-based central disc bulges. No acute fracture or suspicious osseous lesion Electronically Signed: Rolando Rosado MD at 8:17 EDT Reading Location ID and State: [address] [place] [address] , Service support , CC: Dr. Sylvester Winston DO; Dr. Ignacio Cheatham MD Allergist/Md: Signed Normal [facility] Tibia Fibula 2 Viewson 10-30 Tibia Fibula 2 Views [facility] Imaging Services [address] [place] [address] [id number] Tibia Fibula 2 Views MR#: [id number] Acct: [id number] Name: Margareth GONZALEZ [facility] Rep #: [id number] : 1965 F 58 From: Rufino Rosado MD PCP: Dr. Ignacio Cheatham MD Status: [facility] ER Study: Tibia Fibula 2 Views Date of Exam: 10/31/23 Exam# [id number] Ordering Dr: Sylvester Winston DO [id number] STUDY: X-RAY - RIGHT TIBIA AND FIBULA REASON FOR EXAM: Female, 58 years old. Known fracture, pain TECHNIQUE: 2 view(s) of the tibia and fibula were obtained. COMPARISON: 07/24/2023. FINDINGS: Patient has suffered a previously described surgically reduced proximal tibial fracture with metallic side plates and multiple screws. Hardware is intact and free of complication. Alignment at the fracture site is anatomic, there has been continued healing since the previous study but there are still subtle lucencies within the proximal tibia suggests incomplete osseous union has yet to occur. Previously described proximal fibular fracture has healed. There is persistent demineralization of the distal tibia-fibula and talus which could be seen with reflex synthetic dystrophy. RAD/Tibia Fibula 2 Views IMPRESSION: Stable surgical hardware in the proximal tibia. The previously noted fracture demonstrates anatomic alignment and has nearly healed. No acute fracture, hardware complication or failure noted Previously noted proximal fibular fracture has healed Persistent demineralization of the distal tibia-fibula and talus could be seen with reflex synthetic dystrophy. Electronically Signed: Rolando Rosado MD at 8:44 EDT , CC: Dr. Sylvester Winston, ; Dr. Ignacio Cheatham MD Allergist/Md: Signed [facility] ---- Margareth GONZALEZ ([id number]) 1965 F Date Time Provider Department 09/18/23 DORENE MURILLO During your visit today, we recorded the following information about you: Valentín Cramera 09/18/2023 3:01 PM Signed Received vm message from Ruthie with [facility]. Stated that patient desires to participate in aquatic therapy and is asking if that is ok. P# [phone], fax [phone]. Patient seen in the office on 09/13 for her right lower leg. Order prepared for Dr. Murillo's review/approval. Nedra Cramer September 18, 2023 2:58 PM Nedra Cramer 09/18/2023 3:09 PM Addendum PC to Ruthie at [facility] and relayed information. She will check and see if there would be someone available to look over her wounds daily, as Dr. Murillo stated would be necessary, to ensure incisions are ok. Nedra Cramer September 18, 2023 3:08 PM Nedra Cramer 09/22/2023 8:49 AM Signed Checking with Dr. Murillo to see if he wants to sign the attached order for aquatics therapy, or should I delete it. Nedra Cramer September 22, 2023 8:49 AM Allergies As of Date: 09/18/2023 Noted Allergy Reaction VICODIN (HYDROCODONE-ACETAM INOPHE*09/23/2007 11 - Vomiting BALSAM 115 09/23/2007 BALSAM JUAN 09/10/2022 16 - Unknown BARIUM SULFATE 05/01/2023 16 - Unknown BENADRYL ALLERGY DECONGESTANT 05/01/2023 9 - Itching BENADRYL (DIPHENHYDRAMINE HCL) 09/23/2007 2 - Rash 9 - Itching CODEINE 09/23/2007 11 - Vomiting 14 - Other: See Comments LISINOPRIL 05/26/2008 15 - Contraindication-Me dical Cornell* Comments: Acute renal failure MOLD 09/23/2007 NSAIDS (NON-STEROIDAL ANTI-INFLAM* 013 14 - Other: See Comments Comments: Unable to take nsaids after having gastric bypass. PENICILLINS 09/23/2007 10 - Anaphylaxis SEASONAL ALLERGIES 12/14/2008 14 - Other: See Comments Comments: Nose runs, sneezing... 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 - senna (SENOKOT) 8.6 mg tab Take 1 tablet by mouth two times a day. - sevelamer carbonate (RENVELA) 800 mg tablet Take 800 mg by mouth three times a day with meals. - hydrOXYzine HCl (ATARAX) 50 mg tablet Take 1 tablet by mouth every 6 hours as needed for itching/rash. - ondansetron orally disintegrating (ZOFRAN ODT) 4 mg disintegrating tablet Take 1 tablet by mouth every 8 hours as needed for nausea/vomiting. - sertraline (ZOLOFT) 50 mg tablet Take 1 tablet by mouth once daily. - TRULICITY 1.5 mg/0.5 mL pen injector INJECT 1.5 MG UNDER THE SKIN ONCE A WEEK - acetaminophen (TYLENOL) 500 mg tablet Take 1,000 mg by mouth every 12 hours. - atorvastatin (LIPITOR) 40 mg tablet Take 1 tablet by mouth daily at bedtime. For cholesterol. - calcitriol (ROCALTROL) 0.25 mcg capsule Take 0.25 mcg by mouth once daily. Per diaylsis - melatonin 5 mg tablet Take 5 mg by mouth. As needed. - omeprazole (PRILOSEC) 20 mg capsule Take 1 capsule by mouth once daily. - amitriptyline (ELAVIL) 100 mg tablet Take 1 tablet by mouth daily at bedtime. - flash glucose scanning reader (FREESTYLE FESTUS 2 READER) Use to check glucose 3 times daily and continuously. 1 per year. - flash glucose sensor (FREESTYLE FESTUS 2 SENSOR) kit Use to check glucose 3 times daily and continuously. Change every 14 days. 6 per 90 day supply. - cholecalciferol (VITAMIN D3) 5,000 unit tab Take 5,000 Units by mouth twice daily. - aspirin, enteric coated (ADULT LOW DOSE ASPIRIN) 81 mg EC tablet Take 1 tablet by mouth once daily. - Zwweisle-Ha-Veg-Fe- FA ( VITAMIN) ORAL Tab Take 1 tablet by mouth once daily. Meds Comments as of 11/28/2017: Pt states all meds were just gone over. Did not go over meds. Swathi Haddad Ma November 28, 2017 Problem List As Of Date 09/18/2023 Noted Resolved Acute gastritis [K29.00] 12/16/2007 08/04/2022 DM w/o complication type II, uncontrolled [IMO0*03/09/2008 12/07/2014 Routine gynecological examination [Z01.419] 03/09/2008 04/16/2017 Class: Chronic OBESITY NOS [E66.9] 03/09/2008 Acute anemia [D64.9] 03/09/2008 Background diabetic retinopathy (HCC) [E11.3299] 9 Asthma [J45.909] 03/09/2008 DIABETIC FOOT ULCER [L97.509] 03/09/2008 04/16/2017 CHOLELITHIASIS NOS [K80.20] 03/09/2008 Bipolar disorder, unspecified (HCC) [F31.9] 03/09/2008 Essential hypertension, benign [I10] 03/27/2008 03/16/2015 Primary hypertension [I10] Type 2 diabetes mellitus with stage 4 chronic k* Pain in limb [M79.609] 06/29/2008 02/21/2019 Dermatophytosis of nail [B35.1] 06/29 (more content not included)... Normal [facility] XR Knee - right AP and Later atul 09-18-2023 2-view right knee x-rays demonstrate interval healing of the right proximal tibia nonunion with intact orthopaedic implants. [facility] RADIOLOGY [facility] Radiology Study observation (narrative) Griselda booker [facility] CNOVon 09-14-2023 CNOV Office Visit (AGPOB1) ---- Margareth GONZALEZ ([id number]) 1965 F LV Date Time Provider Department 09/14/23 9:45 AM DORENE MURILLO AGPOB1 During your visit today, we recorded the following information about you: Respiration Weight Height 18/minute 88 kg 1.727 m Dorene Murillo MD 09/18/2023 1:53 PM Signed ORTHOPAEDIC SURGERY OFFICE NOTE: SURGERY: 1) Removal of Deep Orthopaedic Implants and Repair of the Right Tibial Nonunion with Autograft (06/12/2023) 2) Irrigation and Debridement of the Right Medial Knee Incisional Dehiscence (07/29/2023) 3) Secondary Closure of the Right Medial Knee Surgical Wound (08/03/2023) CHIEF COMPLAINT: Routine Post-Operative Follow-Up HISTORY OF PRESENT ILLNESS: Margareth Gonzalez is a 58 year old female who presents for routine post-operative follow-up from the above listed operations (see Surgery above for full details). At today's appointment, the patient reports doing well. The patient endorses well-controlled pain to the right knee. The patient denies incisional complications to the right knee including dehiscence, drainage and excessive pain. The patient has maintained non-weightbearing recommendations with the right lower extremity. The patient [place] [facility] facility and participating in physical therapy. The patient denies nausea, night-sweats, fevers and chills. The patient has no additional orthopaedic traumatic complaints at this time. Reviewed nursing note and current pain scale. PAST MEDICAL HISTORY Diagnosis Date Acute gastritis without mention of hemorrhage Allergic rhinitis Anaphylaxis Anemia Back pain Benign essential tremor Bipolar I disorder, most recent episode (or current) unspecified sectrum Bone mass Candidiasis, intertrigo Chronic kidney disease Contraceptive management Depression Diabetes ([facility]) Diarrhea DVT, lower extremity ([facility]) 08/2014 Right leg (6) Esophagitis ESRD (end stage renal disease) ([facility]) 07/03/2022 Facial fracture due to fall ([facility]) ([facility]) Fatigue Fibromyalgia Fracture Fracture of shaft of fibula GERD (gastroesophageal reflux disease) HLD (hyperlipidemia) on tricor Hyperlipidemia Hypertension Hypomagnesemia Hypopotassemia IBS (irritable bowel syndrome) Insomnia Intertrigo Knee pain Morbid obesity ([facility]) 03/11/2011 Myalgia Nausea Neck pain Neuropathy Nocturnal leg cramps Non-cardiac chest pain Obesity CASSIE (obstructive sleep apnea) 07/08/2011 Other polyp of sinus Other specified anemias Personal history of unspecified urinary disorder PMH - PAST MEDICAL HISTORY OF left knee surgery x3 Pulmonary nodules Pyelonephritis, acute Restless leg Ruptured appendicitis S/P gastric bypass Snoring Type 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, not stated as uncontrolled(250.50 ) on oral medications and Lanuts Unspecified asthma(493.90) on inhalers Unspecified essential hypertension on medical management Upper abdominal pain Urinary frequency Vitamin D deficiency PAST SURGICAL HISTORY Procedure Laterality Date CHOLECYSTECTOMY 04/02/2011 COLONOSCOPY W/BIOPSY SINGLE/MULTIPLE 12/16/2007 DILATION AND CURETTAGE DXAND/THER NONOBSTETRIC Dilation AND curettage EGD TRANSORAL BIOPSY SINGLE/MULTIPLE 12/16/2007 ESOPHAGOGASTRODUODE NOSCOPY TRANSORAL DIAGNOSTIC age 14 EGD LAPAROSCOPIC APPENDECTOMY 05/16/2011 MIDLINE INSERTION/CONSULT 07/29/2012 Lap Paul-en-Y gastric bypass PAST SURGICAL HISTORY OF age 14 left knee surgery, for dislocation PAST SURGICAL HISTORY OF age 5 warts removed PAST SURGICAL HISTORY OF 03/02/2007 laser surgery to both eyes for diabetic retinopathy PAST SURGICAL HISTORY OF 04/26/2008 Bilateral eye surgery- vitrectomy PAST SURGICAL HISTORY OF 06/30/2008 Left eye air fluid exchange PAST SURGICAL HISTORY OF 04/09, 07/07 retinal vitrectomies PAST SURGICAL HISTORY OF Left 07/24/2022 Left forearm AVG with [address] Valenzuela STRESS TEST 200p, 2014 Normal results TUBAL LIGATION HX ablation at the same time FAMILY HISTORY Problem Relation Age of Onset Thyroid Father Blindness Mother Diabetic retinopathy Diabetes Mother from renal disease Coronary Artery Disease Mother other (Diabetic Retinaopathy) Mother Cancer Mother uterine Stroke Mother Kidney Disease Mother Thyroid Sister skin cancer Kidney Disease Sister Diabetes Sister Diabetes Sister Coronary Artery Disease Brother Diabetes Brother Coronary Artery Disease Brother Colon Cancer Other none Breast Cancer Other none Social History Tobacco Use Smoking status: Former Packs/day: 2.00 Years: 6.00 Additional pack years: 0.00 Total pack years: 12.00 Types: Cigarettes Quit date: 07/31/1989 Years since quittin.1 Smokeless tobacco: Never Tobacco comments: Quit at (more content not included)... Normal [facility] CNOVon 08-17-2023 CNOV Office Visit (AGPOB1) ---- Margareth GONZALEZ ([id number]) 1965 F [place] Date Time Provider Department 08/17/23 11:30 AM DORENE MURILLO AGPOB1 During your visit today, we recorded the following information about you: Respiration Weight Height 18/minute 88 kg 1.727 m Dorene Murillo MD 08/18/2023 1:44 PM Signed ORTHOPAEDIC SURGERY OFFICE NOTE: SURGERY: 1) Removal of Deep Orthopaedic Implants and Repair of the Right Tibial Nonunion with Autograft (06/12/2023) 2) Irrigation and Debridement of the Right Medial Knee Incisional Dehiscence (07/29/2023) 3) Secondary Closure of the Right Medial Knee Surgical Wound (08/03/2023) CHIEF COMPLAINT: Routine Post-Operative Follow-Up HISTORY OF PRESENT ILLNESS: Margareth Gonzalez is a 58 year old female who presents for routine post-operative follow-up from the above listed operations (see Surgery above for full details). At today's appointment, the patient reports doing well. The patient endorses controlled pain to the right knee. The patient denies right knee incisional complications including excessive pain, swelling, erythema and drainage. The patient has maintained non-weightbearing recommendations with the right lower extremity. The patient is recovering [place] [facility] [place] facility and participating in physical therapy. The patient denies nausea, night-sweats, fevers and chills. The patient has no additional orthopaedic traumatic complaints at this time. Reviewed nursing note and current pain scale. PAST MEDICAL HISTORY Diagnosis Date Acute gastritis without mention of hemorrhage Allergic rhinitis Anaphylaxis Anemia Back pain Benign essential tremor Bipolar I disorder, most recent episode (or current) unspecified sectrum Bone mass Candidiasis, intertrigo Chronic kidney disease Contraceptive management Depression Diabetes ([facility]) Diarrhea DVT, lower extremity ([facility]) 08/2014 Right leg (6) Esophagitis ESRD (end stage renal disease) ([facility]) 07/03/2022 Facial fracture due to fall ([facility]) ([facility]) Fatigue Fibromyalgia Fracture Fracture of shaft of fibula GERD (gastroesophageal reflux disease) HLD (hyperlipidemia) on tricor Hyperlipidemia Hypertension Hypomagnesemia Hypopotassemia IBS (irritable bowel syndrome) Insomnia Intertrigo Knee pain Morbid obesity (HCC) 03/11/2011 Myalgia Nausea Neck pain Neuropathy Nocturnal leg cramps Non-cardiac chest pain Obesity CASSIE (obstructive sleep apnea) 07/08/2011 Other polyp of sinus Other specified anemias Personal history of unspecified urinary disorder PMH - PAST MEDICAL HISTORY OF left knee surgery x3 Pulmonary nodules Pyelonephritis, acute Restless leg Ruptured appendicitis S/P gastric bypass Snoring Type 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, not stated as uncontrolled(250.50 ) on oral medications and Lanuts Unspecified asthma(493.90) on inhalers Unspecified essential hypertension on medical management Upper abdominal pain Urinary frequency Vitamin D deficiency PAST SURGICAL HISTORY Procedure Laterality Date CHOLECYSTECTOMY 04/02/2011 COLONOSCOPY W/BIOPSY SINGLE/MULTIPLE 12/16/2007 DILATION AND CURETTAGE DXAND/THER NONOBSTETRIC Dilation AND curettage EGD TRANSORAL BIOPSY SINGLE/MULTIPLE 12/16/2007 ESOPHAGOGASTRODUODE NOSCOPY TRANSORAL DIAGNOSTIC age 14 EGD LAPAROSCOPIC APPENDECTOMY 05/16/2011 MIDLINE INSERTION/CONSULT 07/29/2012 Lap Paul-en-Y gastric bypass PAST SURGICAL HISTORY OF age 14 left knee surgery, for dislocation PAST SURGICAL HISTORY OF age 5 warts removed PAST SURGICAL HISTORY OF 03/02/2007 laser surgery to both eyes for diabetic retinopathy PAST SURGICAL HISTORY OF 04/26/2008 Bilateral eye surgery- vitrectomy PAST SURGICAL HISTORY OF 06/30/2008 Left eye air fluid exchange PAST SURGICAL HISTORY OF 04/09, 07/07 retinal vitrectomies PAST SURGICAL HISTORY OF Left 07/24/2022 Left forearm AVG with [address] Valenzuela STRESS TEST 200p, 2015 Normal results TUBAL LIGATION HX ablation at the same time FAMILY HISTORY Problem Relation Age of Onset Thyroid Father Blindness Mother Diabetic retinopathy Diabetes Mother from renal disease Coronary Artery Disease Mother other (Diabetic Retinaopathy) Mother Cancer Mother uterine Stroke Mother Kidney Disease Mother Thyroid Sister skin cancer Kidney Disease Sister Diabetes Sister Diabetes Sister Coronary Artery Disease Brother Diabetes Brother Coronary Artery Disease Brother Colon Cancer Other none Breast Cancer Other none Social History Tobacco Use Smoking status: Former Packs/day: 2.00 Years: 6.00 Additional pack years: 0.00 Total pack years: 12.00 Types: Cigarettes Quit date: 07/31/1989 Years since quittin.0 Smokeless tobacco: Never Tobacco comments: Quit at age (more content not included)... Normal [facility] CNDSon 08-07-2023 CNDS HNO ID: [id number] Author: DORENE MURILLO MD Service: Orthopaedic Surgery Author Type: Physician Type: Discharge Summary Filed: 08/07/2023 14:13 Note Text: ORTHOPEDIC SURGERY DISCHARGE SUMMARY ADMISSION DATE: 07/29/2023 DISCHARGE DATE: 08/07/2023 Attending Physician: Dorene Murillo MD Admitting Diagnosis: wound dehiscence right knee Discharge Diagnosis: Same as admitting Additional Diagnoses: ACTIVE PROBLEM LIST Obesity, Unspecified Acute Anemia Background Diabetic Retinopathy (Hcc) Asthma Calculus of Gallbladder Without Mention of Cholecystitis Or Obstruction Bipolar Disorder, Unspecified (Hcc) Primary Hypertension Type 2 Diabetes Mellitus With Stage 4 Chronic Kidney Disease, Without Long-Term Current Use of Insulin (Hcc) Iron Deficiency Anemia, Unspecified Edema Fibromyalgia Neuropathy Vitamin D Deficiency Microalbuminuria Gerd (Gastroesophageal Reflux Disease) Proliferative Diabetic Retinopathy (Hcc) Pseudophakia Cassie (Obstructive Sleep Apnea) Other and Unspecified Postsurgical Nonabsorption Type 2 Diabetes, Controlled, With Neuropathy (Hcc) Personal History of Dvt (Deep Vein Thrombosis) Family History of Ischemic Heart Disease Hypercoagulable State (Hcc) Iron Malabsorption H/O Gastric Bypass Red Blood Cell Antibody Positive Pulmonary Nodules Anemia of Renal Disease Mixed Hyperlipidemia Esrd (End Stage Renal Disease) (Hcc) Hyperkalemia Obesity, Class II, Bmi 35-39.9 Thrombophlebitis of Superficial Veins of Right Lower Extremity Right Leg Pain 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 It was determined she would benefit from surgery. The procedure, its risks, benefits, and potential complications were discussed in detail with the patient or POA prior to surgery. Understanding of all topics was conveyed by the patient or POA, and consent was given for surgery. The patient was emergently admitted through the Emergency Department to [facility] on 07/29/2023. Surgery was scheduled and on 08/03/2023 she underwent a Procedure(s) (LRB): DEBRIDEMENT BONE W/ EPIDERMIS/DERMIS/ SUBCUTANEOUS TISSUE/ MUSCLE/FASCIA FIRST 20 SQ CM OR LESS (Right). The procedure was tolerated well and she was sent to the post operative recovery room in stable condition, where she also did well. She was subsequently sent to her hospital room for postoperative management. Once on the floor her postoperative course was unremarkable and she did well. Her diet was advanced which she tolerated. Her pain was well controlled. She worked with Physical and Occupational Therapy who recommended she be discharged to SNF. She remained afebrile with stable vital signs throughout her stay. She was stable for discharge on POD#4. Complete and comprehensive discharge instructions were provided to the patient as well as necessary prescriptions. The patient had no further questions and was advised to call with any questions, concerns, or problems. Patient was hemodynamically stable postoperatively. Relevant labs included: Hemoglobin (g/dL) Date Value 08/04/2023 9.8 (L) 08/03/2023 9.2 (L) 08/01/2023 9.9 (L) Hematocrit (%) Date Value 08/04/2023 31.8 (L) 08/03/2023 30.5 (L) 08/01/2023 32.2 (L) Discharge Antibiotics: Prior to surgery the patient was treated with antibiotics and continued with antibiotics 24 hours postoperatively. Evaluated by ID and recommended dc on bactrim + flagyl 4 weeks. DVT Prophylaxis: Sequential Compression Devices and Heparin 5000 units every 8 hours x 21 days Complications: Internal medicine was consulted for post op medical management. Recommended to discontinue glipizide at discharge for hypoglycemia. Hx of ESRD on HD T, , Sat and evaluated by nephrology. Surgical Site Care: Prevena incisional wound vac right knee. Wound vac dressing changed on 08/07/2023. Keep clean and dry. Do not get wet. Keep unit plugged in while at rest. Remove wound vac when all lights have burned out on day 7, 08/14/2023. Once dressing removed, gently wash with soap and water and pat area dry. No creams, lotions, powders, alcohol or peroxide to incisional area. Weight Bearing: Non-weightbearing with the right lower extremity; no right knee range of motion at this time Diet: Carb controlled, renal diet Patient Condition @ Discharge: Stable BP 146/69 Pulse 88 Temp 36.7 ?C (98 ?F) (Oral) Resp 16 Ht 172.7 cm (5' 8) Wt 88.3 kg (194 lb 10.7 oz) LMP 09/20/2014 SpO2 96% BMI 29.60 k (more content not included)... Normal [facility] CONSULT PROGon 08-07-2023 CONSULT PROG HNO ID: [id number] Author: FELIX KOO APRN.BENEFITS ADMINISTRATOR Service: Wound/Ostomy Author Type: Nurse Practitioner Type: Consult Progress Note Filed: 08/07/2023 10:35 Note Text: WOUND CARE SERVICE PROGRESS CUSTOMS ENTRY CLERK NOTE SERVICE DATE: 08/07/2023 SERVICE TIME: 0843 am REASON FOR CONSULT: Consultation requested by Lily Parker MD for an opinion regarding right leg incision. My final recommendations will be communicated back to the requesting physician by way of shared Medical record or letter to requesting physician via US mail. CHIEF COMPLAINT: right leg wound Subjective HISTORY OF PRESENT ILLNESS: Ms. Gonzalez is a 58 year old female who is seen today with Audra Monet, Wound/watch dial stoner, as a follow up visit to place a Prevena wound vac for upcoming d/c home today. PERTINENT REVIEW OF SYSTEMS: GENERAL: denies fever or chills PAIN ASSESSMENT: denies pain to right leg, admits to skin being itchy SKIN: admits to surgical incision to right leg RESPIRATORY: denies SOB GI/: denies nausea or vomiting PAST MEDICAL HISTORY Diagnosis Date Acute gastritis without mention of hemorrhage Allergic rhinitis Anaphylaxis Anemia Back pain Benign essential tremor Bipolar I disorder, most recent episode (or current) unspecified sectrum Bone mass Candidiasis, intertrigo Chronic kidney disease Contraceptive management Depression Diabetes ([facility]) Diarrhea DVT, lower extremity ([facility]) 08/2014 Right leg (6) Esophagitis ESRD (end stage renal disease) ([facility]) 07/03/2022 Facial fracture due to fall ([facility]) ([facility]) Fatigue Fibromyalgia Fracture Fracture of shaft of fibula GERD (gastroesophageal reflux disease) HLD (hyperlipidemia) on tricor Hyperlipidemia Hypertension Hypomagnesemia Hypopotassemia IBS (irritable bowel syndrome) Insomnia Intertrigo Knee pain Morbid obesity ([facility]) 03/11/2011 Myalgia Nausea Neck pain Neuropathy Nocturnal leg cramps Non-cardiac chest pain Obesity CASSIE (obstructive sleep apnea) 07/08/2011 Other polyp of sinus Other specified anemias Personal history of unspecified urinary disorder PMH - PAST MEDICAL HISTORY OF left knee surgery x3 Pulmonary nodules Pyelonephritis, acute Restless leg Ruptured appendicitis S/P gastric bypass Snoring Type 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, not stated as uncontrolled(250.50 ) on oral medications and Lanuts Unspecified asthma(493.90) on inhalers Unspecified essential hypertension on medical management Upper abdominal pain Urinary frequency Vitamin D deficiency PAST SURGICAL HISTORY Procedure Laterality Date CHOLECYSTECTOMY 04/02/2011 COLONOSCOPY W/BIOPSY SINGLE/MULTIPLE 12/16/2007 DILATION AND CURETTAGE DXAND/THER NONOBSTETRIC Dilation AND curettage EGD TRANSORAL BIOPSY SINGLE/MULTIPLE 12/16/2007 ESOPHAGOGASTRODUODE NOSCOPY TRANSORAL DIAGNOSTIC age 14 EGD LAPAROSCOPIC APPENDECTOMY 05/16/2011 MIDLINE INSERTION/CONSULT 07/29/2012 Lap Paul-en-Y gastric bypass PAST SURGICAL HISTORY OF age 14 left knee surgery, for dislocation PAST SURGICAL HISTORY OF age 5 warts removed PAST SURGICAL HISTORY OF 03/02/2007 laser surgery to both eyes for diabetic retinopathy PAST SURGICAL HISTORY OF 04/26/2008 Bilateral eye surgery- vitrectomy PAST SURGICAL HISTORY OF 06/30/2008 Left eye air fluid exchange PAST SURGICAL HISTORY OF 04/09, 07/07 retinal vitrectomies PAST SURGICAL HISTORY OF Left 07/24/2022 Left forearm AVG with [address] Valenzuela STRESS TEST 200p, 2015 Normal results TUBAL LIGATION HX ablation at the same time Social History Tobacco Use Smoking status: Former Packs/day: 2.00 Years: 6.00 Additional pack years: 0.00 Total pack years: 12.00 Types: Cigarettes Quit date: 07/31/1989 Years since quittin.0 Smokeless tobacco: Never Tobacco comments: Quit at age 24 Vaping Use Vaping Use: Never used Substance Use Topics Alcohol use: Not Currently Comment: rare Drug use: No Comment: Tried marijuana once - never used it again. FAMILY HISTORY Problem Relation Age of Onset Thyroid Father Blindness Mother Diabetic retinopathy Diabetes Mother from renal disease Coronary Artery Disease Mother other (Diabetic Retinaopathy) Mother Cancer Mother uterine Stroke Mother Kidney Disease Mother Thyroid Sister skin cancer Kidney Disease Sister Diabetes Sister Diabetes Sister Coronary Artery Disease Brother Diabetes Brother Coronary Artery Disease Brother Colon Cancer Other none Breast Cancer Other none MEDICATIONS: Current Facility-Administer ed Medications Medication Dose Route Frequency hydrOXYzine HCl 50 mg tab(s) (ATARAX) 50 mg ORAL q 6 H PRN atorvastatin 40 mg tab(s) (LIPITOR) 40 mg ORAL AT BEDTIME melatonin 6 mg tab(s) 6 mg ORAL DAILY (8 PM) sertraline 50 mg tab(s) (ZOLOFT) 50 mg ORAL DAILY amitriptyline 100 mg tab(s) (ELAVIL) 10 (more content not included)... Normal [facility] XR Knee - right AP and Later atul 07-09-2023 2-view right knee x-rays demonstrate maintained length, alignment and rotation of the proximal tibial nonunion with intact orthopaedic implants. [facility] RADIOLOG[facility] Radiology Study observation (narrative) [facility] Basophil percentageOrdered B y: Sofía Hill on 06-30-2023 Hemoglobin (Bld) [Mass/Vol] 7.0 g/dL 12.0-15.0 [facility] Basophil percentageOrdered B y: Ismael Gillespie on 06-29-2023 Hemoglobin (Bld) [Mass/Vol] 7.5 g/dL 12.0-15.0 [facility] WBC (Bld) [#/Vol] 5.1 10*3/uL 4.4-11.0 [facility] Determination of erythrocyte mean corpuscular volume (MCV)Ordered By: Ismael Gillespie on 06-29-2023 MCV (RBC) [Entitic vol] 109.5 fL 81-99 [facility] Erythrocyte distribution wid th ratioOrdered By: Ismaelnehemiah Gillespie on 06-29-2023 Erythrocyte distribution width (RBC) [Ratio] 17.3 % 11.6-14.6 [facility] Erythrocyte distribution wid th standard deviationOrdered By: Ismael Gillespie on 06-29-2023 Erythrocyte distribution width (RBC) [Entitic vol] 67.9 fL 35.1-43.9 [facility] Hematocrit Auto (Bld) [Volum e fraction]Ordered By: Ismaelnehemiah Gillespie on 06-29-2023 Hematocrit (Bld) [Volume fraction] 25.3 % 37-47 [facility] Laboratory - Hematology and Cell countsOrdered By: Ismael Gillespie on 06-29-2023 MCH (RBC) [Entitic mass] 32.5 pg 27.0-32.0 [facility] MCHC (RBC) [Mass/Vol] 29.6 g/dL 32-36 [facility] Platelet mean volume (Bld) [Entitic vol] 8.7 fL 6.2-12.0 [facility] Platelets (Bld) [#/Vol] 162 10*3/uL 150-450 [facility] RBC Auto (Bld) [#/Vol]Ordere d By: Ismael Gillespie on 06-29-2023 RBC (Bld) [#/Vol] 2.31 10*6/uL 4.2-5.4 [facility] 36on 06-12-2023 36 Name of Caller: Linda - [facility] Contact Reason for Appointment: BREANNA Villavicencio is requesting that Arnold be seen as soon as possible by Dr. Hassan. Linda states that she faxed over records a few days ago. After checking informed her that office did not receive the records. She is going to refax the documents and states she will call back on Thursday. Office Name: [facility] No Panel Informationon 03-17 IMPRESSION: No radiographic evidence of acute osseous injury Allergist/Md: SHAMAR Transcribe Date/Time: Mar 17 2023 12:48P Dictated by : VIDA ROGRES MD This examination was interpreted and the report reviewed and electronically signed by: VIDA ROGERS MD on Mar 17 2023 12:50PM [facility] DIVISION OF RADIOLOGY Radiology Study observation (narrative) [facility] No Panel InformationOrdered By: [facility] Provider on 03-17-2023 [facility] XR Ankle - right AP and Late ral and obliqueon 03-17-2023 * * *Final Report* * * DATE OF EXAM: Mar 17 2023 12:29PM WOX [id number] - XR ANKLE 3V AP/LAT/OBL RT / PROCEDURE REASON: Acute right ankle pain * * * * Physician Interpretation * * * * TITLE: XR FOOT 3V AP/LAT/OBL RT, XR ANKLE 3V AP/LAT/OBL RT CLINICAL INDICATION: Pain TECHNIQUE: 3 view radiographic study of the right foot and right ankle COMPARISON: Radiograph dated January 16, 2011 FINDINGS: Diffuse osseous demineralization. No acute fracture or dislocation identified during evaluation of the distal phalanges is limited due to flexion/patient positioning. Plantar calcaneal enthesophyte. Intramedullary stephen with a single distal interlocking screw partially visualized within the tibia. Atherosclerotic calcification of the vasculature. DIVISION OF RADIOLOGY Provider, [facility] - 03/17/2023 * * *Final Report* * * DATE OF EXAM: Mar 17 2023 12:29PM WOX [id number] - XR ANKLE 3V AP/LAT/OBL RT / PROCEDURE REASON: Acute right ankle pain * * * * Physician Interpretation * * * * TITLE: XR FOOT 3V AP/LAT/OBL RT, XR ANKLE 3V AP/LAT/OBL RT CLINICAL INDICATION: Pain TECHNIQUE: 3 view radiographic study of the right foot and right ankle COMPARISON: Radiograph dated January 16, 2011 FINDINGS: Diffuse osseous demineralization. No acute fracture or dislocation identified during evaluation of the distal phalanges is limited due to flexion/patient positioning. Plantar calcaneal enthesophyte. Intramedullary stephen with a single distal interlocking screw partially visualized within the tibia. Atherosclerotic calcification of the vasculature. IMPRESSION IMPRESSION: No radiographic evidence of acute osseous injury Allergist/Md: SHAMAR Transcribe Date/Time: Mar 17 2023 12:48P Dictated by : VIDA ROGERS MD This examination was interpreted and the report reviewed and electronically signed by: VIDA ROGERS MD on Mar 17 2023 12:50PM [facility] XR Foot - right AP and Later al and obliqueon 03-17-2023 * * *Final Report* * * DATE OF EXAM: Mar 17 2023 12:29PM WOX [id number] - XR FOOT 3V AP/LAT/OBL RT / PROCEDURE REASON: Foot pain, right * * * * Physician Interpretation * * * * TITLE: XR FOOT 3V AP/LAT/OBL RT, XR ANKLE 3V AP/LAT/OBL RT CLINICAL INDICATION: Pain TECHNIQUE: 3 view radiographic study of the right foot and right ankle COMPARISON: Radiograph dated January 16, 2011 FINDINGS: Diffuse osseous demineralization. No acute fracture or dislocation identified during evaluation of the distal phalanges is limited due to flexion/patient positioning. Plantar calcaneal enthesophyte. Intramedullary stephen with a single distal interlocking screw partially visualized within the tibia. Atherosclerotic calcification of the vasculature. DIVISION OF RADIOLOGY Provider, [facility] - 03/17/2023 * * *Final Report* * * DATE OF EXAM: Mar 17 2023 12:29PM WOX [id number] - XR FOOT 3V AP/LAT/OBL RT / PROCEDURE REASON: Foot pain, right * * * * Physician Interpretation * * * * TITLE: XR FOOT 3V AP/LAT/OBL RT, XR ANKLE 3V AP/LAT/OBL RT CLINICAL INDICATION: Pain TECHNIQUE: 3 view radiographic study of the right foot and right ankle COMPARISON: Radiograph dated January 16, 2011 FINDINGS: Diffuse osseous demineralization. No acute fracture or dislocation identified during evaluation of the distal phalanges is limited due to flexion/patient positioning. Plantar calcaneal enthesophyte. Intramedullary stephen with a single distal interlocking screw partially visualized within the tibia. Atherosclerotic calcification of the vasculature. IMPRESSION IMPRESSION: No radiographic evidence of acute osseous injury Allergist/Md: [facility] Transcribe Date/Time: Mar 17 2023 12:48P Dictated by : VIDA ROGERS MD This examination was interpreted and the report reviewed and electronically signed by: VIDA ROGERS MD on Mar 17 2023 12:50PM [facility] Absolute lymphocyte countOrd ered By: Shilpa Leal on 03-04-2023 Lymphocytes Auto (Unsp spec) [#/Vol] 1.82 10*3/uL 0.83-4.51 [facility] Basophil percentageOrdered B y: Shilpa Leal on 03-04-2023 Basophils/100 WBC (Bld) 0.6 % 0-1 [facility] Chloride [Moles/Vol] 103 mmol/L 98-107 [facility] Eosinophils/100 WBC (Bld) 3.7 % 0-5 [facility] Glucose [Mass/Vol] 82 mg/dL 74-106 [facility] Neutrophils (Bld) [#/Vol] 2.6 10*3/uL 2.0-7.7 [facility] Neutrophils/100 WBC (Bld) 51.5 % 47-70 [facility] Potassium [Moles/Vol] 4.7 mmol/L 3.5-5.1 [facility] Sodium [Moles/Vol] 138 mmol/L 136-145 [facility] WBC (Bld) [#/Vol] 5.1 10*3/uL 4.4-11.0 [facility] Blood erythrocytes count (nu mber/volume)Ordered By: Shilpa Leal on 03-04-2023 RBC (Bld) [#/Vol] 2.95 10*6/uL 4.2-5.4 [facility] Blood hemoglobin measurement (mass/volume)Ordered By: Shilpa Leal on 03-04-2023 Hemoglobin (Bld) [Mass/Vol] 9.1 g/dL 12.0-15.0 [facility] Blood lymphocytes/100 leukoc ytesOrdered By: Shilpa Leal on 03-04-2023 Lymphocytes/100 WBC (Bld) 35.9 % 19-41 [facility] Blood monocytes/100 leukocyt esOrdered By: Shilpa Leal on 03-04-2023 Monocytes/100 WBC (Bld) 7.9 % 0-10 [facility] Blood platelet mean volumeOr dered By: Shilpa Leal on 03-04-2023 Platelet mean volume (Bld) [Entitic vol] 8.9 fL 6.2-12.0 [facility] Determination of erythrocyte mean corpuscular volume (MCV)Ordered By: Shilpa Leal on 03-04-2023 MCV (RBC) [Entitic vol] 103.1 fL 81-99 [facility] Hematocrit Auto (Bld) [Volum e fraction]Ordered By: Shilpa Leal on 03-04-2023 Hematocrit (Bld) [Volume fraction] 30.4 % 37-47 [facility] Laboratory - Chemistry and C hemistry - challengeOrdered By: Shilpa Leal on 03-04-2023 CO2 [Moles/Vol] 31.0 mmol/L 21.0-32.0 [facility] Urea nitrogen/Creatinine [Mass ratio] 5.1 mg/mg 10-20 [facility] Laboratory - Hematology and Cell countsOrdered By: Shilpa Leal on 03-04-2023 Erythrocyte distribution width (RBC) [Entitic vol] 58.8 fL 35.1-43.9 [facility] Erythrocyte distribution width (RBC) [Ratio] 15.6 % 11.6-14.6 [facility] Immature granulocytes/100 WBC (Bld) 0.400 % 0.0-0.9 [facility] Comment on above: IG% - Immature Granu locytes (promyelocytes, myelocytes and metamyelocytes) > 1% indicates that a LEFT SHIFT is Present. MCH (RBC) [Entitic mass] 30.8 pg 27.0-32.0 [facility] Nucleated RBC/100 WBC (Bld) [Ratio] 0 % 0-5 [facility] MCHC Auto (RBC) [Mass/Vol]Or dered By: Shilpa Leal on 03-04-2023 MCHC (RBC) [Mass/Vol] 29.9 g/dL 32-36 [facility] No Panel InformationOrdered By: Shilpa Leal on 03-04-2023 Estimated GFR (MDRD) Amer 21 mL/min >60 [facility] Comment on above: GFR Calc Estimated GFR (MDRD) Non-Af Amer 17 mL/min >60 [facility] Comment on above: Non- GFR Calc Platelets bldOrdered By: Bryan Leal on 03-04-2023 Platelets (Bld) [#/Vol] 170 10*3/uL 150-450 [facility] Serum or plasma calcium joya urement (mass/volume)Ordered By: Shilpa Leal on 03-04-2023 Calcium [Mass/Vol] 8.9 mg/dL 8.5-10.1 [facility] Serum or plasma creatinine m easurement (mass/volume)Ordered By: Shilpa Leal on 03-04-2023 Creatinine [Mass/Vol] 2.97 mg/dL 0.55-1.02 [facility] Comment on above: The validity of the calculated GFR & GFRAA in patients over 70 years has not been determined. Clinical correlation is essential. Serum or plasma urea nitroge n measurement (mass/volume)Ordered By: Shilpa Leal on 03-04-2023 Urea nitrogen [Mass/Vol] 15 mg/dL 7-18 [facility] Thin prep Papanicolaou smear with manual screeningOrdered By: Shilpa Leal on 03-04-2023 Thin prep Papanicolaou smear with manual screening 4 5-15 [facility] Absolute lymphocyte countOrd ered By: Shilpa Leal on 02-25-2023 Lymphocytes Auto (Unsp spec) [#/Vol] 1.72 10*3/uL 0.83-4.51 [facility] Basophil percentageOrdered B y: Shilpa Leal on 02-25-2023 Basophils/100 WBC (Bld) 0.6 % 0-1 [facility] Chloride [Moles/Vol] 101 mmol/L 98-107 [facility] Eosinophils/100 WBC (Bld) 4.6 % 0-5 [facility] Glucose [Mass/Vol] 94 mg/dL 74-106 [facility] Neutrophils (Bld) [#/Vol] 2.3 10*3/uL 2.0-7.7 [facility] Neutrophils/100 WBC (Bld) 48.5 % 47-70 [facility] Potassium [Moles/Vol] 3.9 mmol/L 3.5-5.1 [facility] Sodium [Moles/Vol] 137 mmol/L 136-145 [facility] WBC (Bld) [#/Vol] 4.8 10*3/uL 4.4-11.0 [facility] Blood erythrocytes count (nu mber/volume)Ordered By: Shilpa Leal on 02-25-2023 RBC (Bld) [#/Vol] 2.75 10*6/uL 4.2-5.4 [facility] Blood hemoglobin measurement (mass/volume)Ordered By: Shilpa Leal on 02-25-2023 Hemoglobin (Bld) [Mass/Vol] 8.6 g/dL 12.0-15.0 [facility] Blood lymphocytes/100 leukoc ytesOrdered By: Shilpa Leal on 02-25-2023 Lymphocytes/100 WBC (Bld) 36.2 % 19-41 [facility] Blood monocytes/100 leukocyt esOrdered By: Shilpa Leal on 02-25-2023 Monocytes/100 WBC (Bld) 9.7 % 0-10 [facility] Blood platelet mean volumeOr dered By: Shilpa Leal on 02-25-2023 Platelet mean volume (Bld) [Entitic vol] 9.0 fL 6.2-12.0 [facility] Determination of erythrocyte mean corpuscular volume (MCV)Ordered By: Shilpa Leal on 02-25-2023 MCV (RBC) [Entitic vol] 103.6 fL 81-99 [facility] Hematocrit Auto (Bld) [Volum e fraction]Ordered By: Shilpa Leal on 02-25-2023 Hematocrit (Bld) [Volume fraction] 28.5 % 37-47 [facility] Laboratory - Chemistry and C hemistry - challengeOrdered By: Shilpa Leal on 02-25-2023 CO2 [Moles/Vol] 33.0 mmol/L 21.0-32.0 [facility] Urea nitrogen/Creatinine [Mass ratio] 5.1 mg/mg 10-20 [facility] Laboratory - Hematology and Cell countsOrdered By: Shilpa Leal on 02-25-2023 Erythrocyte distribution width (RBC) [Entitic vol] 57.9 fL 35.1-43.9 [facility] Erythrocyte distribution width (RBC) [Ratio] 15.7 % 11.6-14.6 [facility] Immature granulocytes/100 WBC (Bld) 0.400 % 0.0-0.9 [facility] Comment on above: IG% - Immature Granu locytes (promyelocytes, myelocytes and metamyelocytes) > 1% indicates that a LEFT SHIFT is Present. MCH (RBC) [Entitic mass] 31.3 pg 27.0-32.0 [facility] Nucleated RBC/100 WBC (Bld) [Ratio] 0 % 0-5 [facility] MCHC Auto (RBC) [Mass/Vol]Or dered By: Shilpa Leal on 02-25-2023 MCHC (RBC) [Mass/Vol] 30.2 g/dL 32-36 [facility] No Panel InformationOrdered By: Shilpa Leal on 02-25-2023 Estimated GFR (MDRD) Amer 21 mL/min >60 [facility] Comment on above: GFR Calc Estimated GFR (MDRD) Non-Af Amer 17 mL/min >60 [facility] Comment on above: Non- GFR Calc Platelets bldOrdered By: Bryan Leal on 02-25-2023 Platelets (Bld) [#/Vol] 197 10*3/uL 150-450 [facility] Serum or plasma calcium joya urement (mass/volume)Ordered By: Shilpa Leal on 02-25-2023 Calcium [Mass/Vol] 8.7 mg/dL 8.5-10.1 [facility] Serum or plasma creatinine m easurement (mass/volume)Ordered By: Shilpa Leal on 02-25-2023 Creatinine [Mass/Vol] 2.95 mg/dL 0.55-1.02 [facility] Comment on above: The validity of the calculated GFR & GFRAA in patients over 70 years has not been determined. Clinical correlation is essential. Serum or plasma urea nitroge n measurement (mass/volume)Ordered By: Shilpa Leal on 02-25-2023 Urea nitrogen [Mass/Vol] 15 mg/dL 7-18 [facility] Thin prep Papanicolaou smear with manual screeningOrdered By: Shilpa Leal on 02-25-2023 Thin prep Papanicolaou smear with manual screening 3 5-15 [facility] Absolute lymphocyte countOrd ered By: Shilpa Leal on 02-18-2023 Lymphocytes Auto (Unsp spec) [#/Vol] 1.71 10*3/uL 0.83-4.51 [facility] Basophil percentageOrdered B y: Shilpa Leal on 02-18-2023 Basophils/100 WBC (Bld) 0.5 % 0-1 [facility] Chloride [Moles/Vol] 103 mmol/L 98-107 [facility] Eosinophils/100 WBC (Bld) 3.0 % 0-5 [facility] Glucose [Mass/Vol] 147 mg/dL 74-106 [facility] Comment on above: Fasting Glucose resu lt greater than or equal to 126 mg/dL suggests DIABETES MELLITUS per A.D.A. criteria. Neutrophils (Bld) [#/Vol] 1.9 10*3/uL 2.0-7.7 [facility] Neutrophils/100 WBC (Bld) 44.5 % 47-70 [facility] Potassium [Moles/Vol] 4.2 mmol/L 3.5-5.1 [facility] Sodium [Moles/Vol] 139 mmol/L 136-145 [facility] WBC (Bld) [#/Vol] 4.3 10*3/uL 4.4-11.0 [facility] Blood erythrocytes count (nu mber/volume)Ordered By: Shilpa Leal on 02-18-2023 RBC (Bld) [#/Vol] 2.46 10*6/uL 4.2-5.4 [facility] Blood hemoglobin measurement (mass/volume)Ordered By: Shilpa Leal on 02-18-2023 Hemoglobin (Bld) [Mass/Vol] 7.5 g/dL 12.0-15.0 [facility] Blood lymphocytes/100 leukoc ytesOrdered By: Shilpa Leal on 02-18-2023 Lymphocytes/100 WBC (Bld) 40.0 % 19-41 [facility] Blood monocytes/100 leukocyt esOrdered By: Shilpa Leal on 02-18-2023 Monocytes/100 WBC (Bld) 11.5 % 0-10 [facility] Blood platelet mean volumeOr dered By: Shilpa Leal on 02-18-2023 Platelet mean volume (Bld) [Entitic vol] 8.8 fL 6.2-12.0 [facility] Determination of erythrocyte mean corpuscular volume (MCV)Ordered By: Shilpa Leal on 02-18-2023 MCV (RBC) [Entitic vol] 102.8 fL 81-99 [facility] Hematocrit Auto (Bld) [Volum e fraction]Ordered By: Shilpa Leal on 02-18-2023 Hematocrit (Bld) [Volume fraction] 25.3 % 37-47 [facility] Laboratory - Chemistry and C hemistry - challengeOrdered By: Shilpa Leal on 02-18-2023 CO2 [Moles/Vol] 31.0 mmol/L 21.0-32.0 [facility] Urea nitrogen/Creatinine [Mass ratio] 5.0 mg/mg 10-20 [facility] Laboratory - Hematology and Cell countsOrdered By: Shilpa Leal on 02-18-2023 Erythrocyte distribution width (RBC) [Entitic vol] 62.4 fL 35.1-43.9 [facility] Erythrocyte distribution width (RBC) [Ratio] 16.5 % 11.6-14.6 [facility] Immature granulocytes/100 WBC (Bld) 0.500 % 0.0-0.9 [facility] Comment on above: IG% - Immature Granu locytes (promyelocytes, myelocytes and metamyelocytes) > 1% indicates that a LEFT SHIFT is Present. MCH (RBC) [Entitic mass] 30.5 pg 27.0-32.0 [facility] Nucleated RBC/100 WBC (Bld) [Ratio] 0 % 0-5 [facility] MCHC Auto (RBC) [Mass/Vol]Or dered By: Shilpa Leal on 02-18-2023 MCHC (RBC) [Mass/Vol] 29.6 g/dL 32-36 [facility] No Panel InformationOrdered By: Shilpa Leal on 02-18-2023 Estimated GFR (MDRD) Amer 19 mL/min >60 [facility] Comment on above: GFR Calc Estimated GFR (MDRD) Non-Af Amer 16 mL/min >60 [facility] Comment on above: Non- GFR Calc Platelets bldOrdered By: Bryan Leal on 02-18-2023 Platelets (Bld) [#/Vol] 175 10*3/uL 150-450 [facility] Serum or plasma calcium joya urement (mass/volume)Ordered By: Shilpa Leal on 02-18-2023 Calcium [Mass/Vol] 8.0 mg/dL 8.5-10.1 [facility] Serum or plasma creatinine m easurement (mass/volume)Ordered By: Shilpa Leal on 02-18-2023 Creatinine [Mass/Vol] 3.17 mg/dL 0.55-1.02 [facility] Comment on above: The validity of the calculated GFR & GFRAA in patients over 70 years has not been determined. Clinical correlation is essential. Serum or plasma urea nitroge n measurement (mass/volume)Ordered By: Shilpa Leal on 02-18-2023 Urea nitrogen [Mass/Vol] 16 mg/dL 7-18 [facility] Thin prep Papanicolaou smear with manual screeningOrdered By: [facility] Petersenvinicio on 02-18-2023 Thin prep Papanicolaou smear with manual screening 5 5-15 [facility] Absolute lymphocyte countOrd ered By: Sophypeckvillemell Leal on 02-11-2023 Lymphocytes Auto (Unsp spec) [#/Vol] 1.47 10*3/uL 0.83-4.51 [facility] Basophil percentageOrdered B y: Shilpa Leal on 02-11-2023 Basophils/100 WBC (Bld) 1.0 % 0-1 [facility] Chloride [Moles/Vol] 100 mmol/L 98-107 [facility] Eosinophils/100 WBC (Bld) 4.1 % 0-5 [facility] Glucose [Mass/Vol] 105 mg/dL 74-106 [facility] Comment on above: Fasting Glucose resu lt from 100 to 125 mg/dL suggests IMPAIRED HOMEOSTASIS per A.D.A. criteria. Neutrophils (Bld) [#/Vol] 1.7 10*3/uL 2.0-7.7 [facility] Neutrophils/100 WBC (Bld) 44.9 % 47-70 [facility] Potassium [Moles/Vol] 3.9 mmol/L 3.5-5.1 [facility] Sodium [Moles/Vol] 138 mmol/L 136-145 [facility] WBC (Bld) [#/Vol] 3.9 10*3/uL 4.4-11.0 [facility] Blood erythrocytes count (nu mber/volume)Ordered By: Shilpa Leal on 02-11-2023 RBC (Bld) [#/Vol] 2.31 10*6/uL 4.2-5.4 [facility] Blood hemoglobin measurement (mass/volume)Ordered By: Lisacarlosrocíomell Leal on 02-11-2023 Hemoglobin (Bld) [Mass/Vol] 7.1 g/dL 12.0-15.0 [facility] Blood lymphocytes/100 leukoc ytesOrdered By: Lisamayela Leal on 02-11-2023 Lymphocytes/100 WBC (Bld) 38.1 % 19-41 [facility] Blood monocytes/100 leukocyt esOrdered By: carlosbronwyn Leal on 02-11-2023 Monocytes/100 WBC (Bld) 11.4 % 0-10 [facility] Blood platelet mean volumeOr dered By: Lisamayela Leal on 02-11-2023 Platelet mean volume (Bld) [Entitic vol] 9.0 fL 6.2-12.0 [facility] Determination of erythrocyte mean corpuscular volume (MCV)Ordered By: Shilpa Leal on 02-11-2023 MCV (RBC) [Entitic vol] 103.0 fL 81-99 [facility] Hematocrit Auto (Bld) [Volum e fraction]Ordered By: Lisacarlosrocíomell Leal on 02-11-2023 Hematocrit (Bld) [Volume fraction] 23.8 % 37-47 [facility] Laboratory - Chemistry and C hemistry - challengeOrdered By: Lisamayela Leal on 02-11-2023 CO2 [Moles/Vol] 31.0 mmol/L 21.0-32.0 [facility] Urea nitrogen/Creatinine [Mass ratio] 3.7 mg/mg 10-20 [facility] Laboratory - Hematology and Cell countsOrdered By: Shilpa Leal on 02-11-2023 Erythrocyte distribution width (RBC) [Entitic vol] 58.1 fL 35.1-43.9 [facility] Erythrocyte distribution width (RBC) [Ratio] 15.9 % 11.6-14.6 [facility] Immature granulocytes/100 WBC (Bld) 0.500 % 0.0-0.9 [facility] Comment on above: IG% - Immature Granu locytes (promyelocytes, myelocytes and metamyelocytes) > 1% indicates that a LEFT SHIFT is Present. MCH (RBC) [Entitic mass] 30.7 pg 27.0-32.0 [facility] Nucleated RBC/100 WBC (Bld) [Ratio] 0 % 0-5 [facility] MCHC Auto (RBC) [Mass/Vol]Or dered By: Shilpa Leal on 02-11-2023 MCHC (RBC) [Mass/Vol] 29.8 g/dL 32-36 [facility] No Panel InformationOrdered By: Shilpa Leal on 02-11-2023 Estimated GFR (MDRD) Amer 21 mL/min >60 [facility] Comment on above: GFR Calc Estimated GFR (MDRD) Non-Af Amer 17 mL/min >60 [facility] Comment on above: Non- GFR Calc Platelets bldOrdered By: Bryan Leal on 02-11-2023 Platelets (Bld) [#/Vol] 243 10*3/uL 150-450 [facility] Serum or plasma calcium joya urement (mass/volume)Ordered By: Shilpa Leal on 02-11-2023 Calcium [Mass/Vol] 8.3 mg/dL 8.5-10.1 [facility] Serum or plasma creatinine m easurement (mass/volume)Ordered By: Shilpa Leal on 02-11-2023 Creatinine [Mass/Vol] 2.99 mg/dL 0.55-1.02 [facility] Comment on above: The validity of the calculated GFR & GFRAA in patients over 70 years has not been determined. Clinical correlation is essential. Serum or plasma urea nitroge n measurement (mass/volume)Ordered By: Shilpa Leal on 02-11-2023 Urea nitrogen [Mass/Vol] 11 mg/dL 7-18 [facility] Thin prep Papanicolaou smear with manual screeningOrdered By: Shilpa Leal on 02-11-2023 Thin prep Papanicolaou smear with manual screening 7 5-15 [facility] Bilirubin Test strip Ql (U)O rdered By: Shilpa Leal on 02-09-2023 Bilirubin Ql (U) Negative Negative [facility] Culture, urineOrdered By: Lisa Leal on 02-09-2023 Bacteria identified Cx Nom (U) Klebsiella pneumoniae sp pneum [facility] Ketones Test strip Ql (U)Ord ered By: Shilpa Leal on 02-09-2023 Ketones Ql (U) Negative Negative [facility] Nitrite Test strip Ql (U)Ord ered By: Shilpa Leal on 02-09-2023 Nitrite Ql (U) Negative Negative [facility] Protein Test strip Ql (U)Ord ered By: Shilpa Leal on 02-09-2023 Protein Ql (U) 100 mg/dl Negative [facility] Urine blood detectionOrdered By: Shilpa Leal on 02-09-2023 RBC Ql (U) 25 /ul Negative [facility] Urine clarityOrdered By: Bryan Leal on 02-09-2023 Clarity (U) Sl. Cloudy Clear [facility] Urine color determinationOrd ered By: Shilpa Leal on 02-09-2023 Color (U) Yellow Yellow [facility] Urine glucose detectionOrder ed By: Shilpa Leal on 02-09-2023 Glucose Ql (U) Normal mg/dl Normal [facility] Urine leukocyte esterase det ection by dipstickOrdered By: Shilpa Leal on 02-09-2023 Leukocyte esterase Test strip Ql (U) 500 /ul Negative [facility] Urine pHOrdered By: Ethan Leal on 02-09-2023 pH (U) 9.0 [pH] 5.0 - 8.0 [facility] Urine specific gravity measu rementOrdered By: Shilpa Leal on 02-09-2023 Specific gravity (U) [Rel density] 1.015 1.002-1.030 [facility] Urobilinogen Auto test strip Ql (U)Ordered By: Shilpa Lael on 02-09-2023 Urobilinogen Ql (U) Normal mg/dl Normal [facility] Absolute lymphocyte countOrd ered By: Neymar Toledo on 02-04-2023 Lymphocytes Auto (Unsp spec) [#/Vol] 1.39 10*3/uL 0.83-4.51 [facility] Absolute lymphocyte countOrd ered By: Shilpa Leal on 02-04-2023 Lymphocytes Auto (Unsp spec) [#/Vol] 1.86 10*3/uL 0.83-4.51 [facility] Basophil percentageOrdered B y: Neymar Toledo on 02-04-2023 Basophils/100 WBC (Bld) 0.7 % 0-1 [facility] Chloride [Moles/Vol] 98 mmol/L 98-107 [facility] Eosinophils/100 WBC (Bld) 2.4 % 0-5 [facility] Glucose [Mass/Vol] 310 mg/dL 74-106 [facility] Comment on above: Glucose result great er than or equal to 200 mg/dLsuggests DIABETES MELLITUS per A.D.A. criteria. Neutrophils (Bld) [#/Vol] 4.8 10*3/uL 2.0-7.7 [facility] Neutrophils/100 WBC (Bld) 69.0 % 47-70 [facility] Potassium [Moles/Vol] 3.9 mmol/L 3.5-5.1 [facility] Sodium [Moles/Vol] 136 mmol/L 136-145 [facility] WBC (Bld) [#/Vol] 7.0 10*3/uL 4.4-11.0 [facility] Basophil percentageOrdered B y: Shilpa Leal on 02-04-2023 Basophils/100 WBC (Bld) 0.7 % 0-1 [facility] Bilirubin [Mass/Vol] 0.40 mg/dL 0.20-1.00 [facility] Comment on above: For patients on eltr ombopag therapy, use of Dimension [place] TBIL is not recommended. Chloride [Moles/Vol] 100 mmol/L 98-107 [facility] Eosinophils/100 WBC (Bld) 4.2 % 0-5 [facility] Glucose [Mass/Vol] 107 mg/dL 74-106 [facility] Comment on above: Fasting Glucose resu lt from 100 to 125 mg/dL suggests IMPAIRED HOMEOSTASIS per A.D.A. criteria. Neutrophils (Bld) [#/Vol] 3.3 10*3/uL 2.0-7.7 [facility] Neutrophils/100 WBC (Bld) 53.7 % 47-70 [facility] Potassium [Moles/Vol] 3.8 mmol/L 3.5-5.1 [facility] Protein [Mass/Vol] 5.1 g/dL 6.4-8.2 [facility] Sodium [Moles/Vol] 137 mmol/L 136-145 [facility] WBC (Bld) [#/Vol] 6.2 10*3/uL 4.4-11.0 [facility] Blood erythrocytes count (nu mber/volume)Ordered By: Neymar Toledo on 02-04-2023 RBC (Bld) [#/Vol] 2.46 10*6/uL 4.2-5.4 [facility] Blood erythrocytes count (nu mber/volume)Ordered By: Shilpa Leal on 02-04-2023 RBC (Bld) [#/Vol] 2.29 10*6/uL 4.2-5.4 [facility] Blood hemoglobin measurement (mass/volume)Ordered By: Neymar Toledo on 02-04-2023 Hemoglobin (Bld) [Mass/Vol] 7.3 g/dL 12.0-15.0 [facility] Blood hemoglobin measurement (mass/volume)Ordered By: Shilpa Leal on 02-04-2023 Hemoglobin (Bld) [Mass/Vol] 6.9 g/dL 12.0-15.0 [facility] Blood lymphocytes/100 leukoc ytesOrdered By: Neymar Toledo on 02-04-2023 Lymphocytes/100 WBC (Bld) 19.9 % 19- [facility] Blood lymphocytes/100 leukoc ytesOrdered By: Shilpa Leal on 02-04-2023 Lymphocytes/100 WBC (Bld) 30.2 % - [facility] Blood monocytes/100 leukocyt esOrdered By: Neymar Toledo on 02-04-2023 Monocytes/100 WBC (Bld) 6.6 % 0-10 [facility] Blood monocytes/100 leukocyt esOrdered By: Shilpa Leal on 02-04-2023 Monocytes/100 WBC (Bld) 9.6 % 0-10 [facility] Blood platelet mean volumeOr dered By: Neymar Toledo on 02-04-2023 Platelet mean volume (Bld) [Entitic vol] 8.6 fL 6.2-12.0 [facility] Blood platelet mean volumeOr dered By: Shilpa Leal on 02-04-2023 Platelet mean volume (Bld) [Entitic vol] 9.0 fL 6.2-12.0 [facility] Determination of erythrocyte mean corpuscular volume (MCV)Ordered By: Neymar Toledo on 02-04-2023 MCV (RBC) [Entitic vol] 101.2 fL 81-99 [facility] Determination of erythrocyte mean corpuscular volume (MCV)Ordered By: Shilpa Leal on 02-04-2023 MCV (RBC) [Entitic vol] 99.6 fL 81-99 [facility] Hematocrit Auto (Bld) [Volum e fraction]Ordered By: Neymar Toledo on 02-04-2023 Hematocrit (Bld) [Volume fraction] 24.9 % 37-47 [facility] Hematocrit Auto (Bld) [Volum e fraction]Ordered By: Shilpa Leal on 02-04-2023 Hematocrit (Bld) [Volume fraction] 22.8 % 37-47 [facility] Laboratory - Chemistry and C hemistry - challengeOrdered By: Neymar Toledo on 02-04-2023 CO2 [Moles/Vol] 30.0 mmol/L 21.0-32.0 [facility] Urea nitrogen/Creatinine [Mass ratio] 5.2 mg/mg 10-20 [facility] Laboratory - Chemistry and C hemistry - challengeOrdered By: Shilpa Leal on 02-04-2023 ALP [Catalytic activity/Vol] 115 U/L 45-117 [facility] ALT [Catalytic activity/Vol] 11 U/L 13-56 [facility] CO2 [Moles/Vol] 34.0 mmol/L 21.0-32.0 [facility] Globulin (S) [Mass/Vol] 3.2 g/dL 2.2-4.2 [facility] Urea nitrogen/Creatinine [Mass ratio] 5.2 mg/mg 10- [facility] Laboratory - Hematology and Cell countsOrdered By: Neymar Toledo on 02-04-2023 Erythrocyte distribution width (RBC) [Entitic vol] 53.5 fL 35.1-43.9 [facility] Erythrocyte distribution width (RBC) [Ratio] 15.2 % 11.6-14.6 [facility] Immature granulocytes/100 WBC (Bld) 1.400 % 0.0-0.9 [facility] Comment on above: IG% - Immature Granu locytes (promyelocytes, myelocytes and metamyelocytes) > 1% indicates that a LEFT SHIFT is Present. MCH (RBC) [Entitic mass] 29.7 pg 27.0-32.0 [facility] Nucleated RBC/100 WBC (Bld) [Ratio] 0 % 0-5 [facility] Laboratory - Hematology and Cell countsOrdered By: Shilpa Leal on 02-04-2023 Erythrocyte distribution width (RBC) [Entitic vol] 53.8 fL 35.1-43.9 [facility] Erythrocyte distribution width (RBC) [Ratio] 15.4 % 11.6-14.6 [facility] Immature granulocytes/100 WBC (Bld) 1.600 % 0.0-0.9 [facility] Comment on above: IG% - Immature Granu locytes (promyelocytes, myelocytes and metamyelocytes) > 1% indicates that a LEFT SHIFT is Present. MCH (RBC) [Entitic mass] 30.1 pg 27.0-32.0 [facility] Nucleated RBC/100 WBC (Bld) [Ratio] 0 % 0- [facility] MCHC Auto (RBC) [Mass/Vol]Or dered By: Neymar Toledo on 02-04-2023 MCHC (RBC) [Mass/Vol] 29.3 g/dL [facility] MCHC Auto (RBC) [Mass/Vol]Or dered By: Shilpa Leal on 02-04-2023 MCHC (RBC) [Mass/Vol] 30.3 g/dL [facility] No Panel InformationOrdered By: Neymar Toledo on 02-04-2023 Estimated Creatinine Clearance Calc 19.21 ml/min [facility] Estimated GFR (MDRD) Amer 19 mL/min >60 [facility] Comment on above: GFR Calc Estimated GFR (MDRD) Non-Af Amer 16 mL/min >60 [facility] Comment on above: Non- GFR Calc No Panel InformationOrdered By: Shilpa Leal on 02-04-2023 Estimated GFR (MDRD) Amer 21 mL/min >60 [facility] Comment on above: GFR Calc Estimated GFR (MDRD) Non-Af Amer 18 mL/min >60 [facility] Comment on above: Non- GFR Calc Platelets bldOrdered By: Bay Toledo on 02-04-2023 Platelets (Bld) [#/Vol] 247 10*3/uL 150-450 [facility] Platelets bldOrdered By: Bryan Leal on 02-04-2023 Platelets (Bld) [#/Vol] 265 10*3/uL 150-450 [facility] Serum or plasma albumin joya urement (mass/volume)Ordered By: Shilpa Leal on 02-04-2023 Albumin [Mass/Vol] 1.9 g/dL 3.2-5.0 [facility] Serum or plasma albumin/glob ulin mass ratioOrdered By: Shilpa Leal on 02-04-2023 Albumin/Globulin [Mass ratio] 0.6 {ratio} 0.9-2.4 [facility] Serum or plasma calcium joya urement (mass/volume)Ordered By: Neymar Toledo on 02-04-2023 Calcium [Mass/Vol] 7.9 mg/dL 8.5-10.1 [facility] Serum or plasma calcium joya urement (mass/volume)Ordered By: Shilpa Leal on 02-04-2023 Calcium [Mass/Vol] 8.3 mg/dL 8.5-10.1 [facility] Serum or plasma creatinine m easurement (mass/volume)Ordered By: Neymar Toledo on 02-04-2023 Creatinine [Mass/Vol] 3.26 mg/dL 0.55-1.02 [facility] Comment on above: The validity of the calculated GFR & GFRAA in patients over 70 years has not been determined. Clinical correlation is essential. Serum or plasma creatinine m easurement (mass/volume)Ordered By: Shilpa Leal on 02-04-2023 Creatinine [Mass/Vol] 2.91 mg/dL 0.55-1.02 [facility] Comment on above: The validity of the calculated GFR & GFRAA in patients over 70 years has not been determined. Clinical correlation is essential. Serum or plasma urea nitroge n measurement (mass/volume)Ordered By: Neymar Toledo on 02-04-2023 Urea nitrogen [Mass/Vol] 17 mg/dL 09-16 [facility] Serum or plasma urea nitroge n measurement (mass/volume)Ordered By: Shilpa Leal on 02-04-2023 Urea nitrogen [Mass/Vol] 15 mg/dL 7-18 [facility] Thin prep Papanicolaou smear with manual screeningOrdered By: Neymar Toledo on 02-04-2023 Thin prep Papanicolaou smear with manual screening 8 5-15 [facility] Thin prep Papanicolaou smear with manual screeningOrdered By: Shilpa Leal on 02-04-2023 Thin prep Papanicolaou smear with manual screening 15 U/L 15-37 [facility] Thin prep Papanicolaou smear with manual screening 3 5-15 [facility] COVID-19 virus antigen assay Ordered By: Carolina Caba on 01-29-2023 SARS-CoV-2 (COVID-19) Ag IA.rapid Ql (Resp) [facility] Glucose Glucometer (BldC) [M ass/Vol]Ordered By: Carolina Caba on 01-29-2023 Glucose [Mass/Vol] 153 mg/dL 74-106 [facility] Comment on above: MANAGEMENT OF PATIEN T CARE PER NURSING PROTOCOL Absolute lymphocyte countOrd ered By: Branden Banks on 01-28-2023 Lymphocytes Auto (Unsp spec) [#/Vol] 1.96 10*3/uL 0.83-4.51 [facility] Basophil percentageOrdered B y: Branden Banks on 01-28-2023 Basophils/100 WBC (Bld) 0.8 % 0-1 [facility] Eosinophils/100 WBC (Bld) 5.0 % 0-5 [facility] Neutrophils (Bld) [#/Vol] 5.2 10*3/uL 2.0-7.7 [facility] Neutrophils/100 WBC (Bld) 59.6 % 47-70 [facility] WBC (Bld) [#/Vol] 8.7 10*3/uL 4.4-11.0 [facility] Blood erythrocytes count (nu mber/volume)Ordered By: Branden Banks on 01-28-2023 RBC (Bld) [#/Vol] 2.54 10*6/uL 4.2-5.4 [facility] Blood hemoglobin measurement (mass/volume)Ordered By: Branden Banks on 01-28-2023 Hemoglobin (Bld) [Mass/Vol] 7.6 g/dL 12.0-15.0 [facility] Blood lymphocytes/100 leukoc ytesOrdered By: Branden Banks on 01-28-2023 Lymphocytes/100 WBC (Bld) 22.5 % 19-41 [facility] Blood monocytes/100 leukocyt esOrdered By: Branden Banks on 01-28-2023 Monocytes/100 WBC (Bld) 9.6 % 0-10 [facility] Blood platelet mean volumeOr dered By: Branden Banks on 01-28-2023 Platelet mean volume (Bld) [Entitic vol] 8.9 fL 6.2-12.0 [facility] Determination of erythrocyte mean corpuscular volume (MCV)Ordered By: Branden Banks on 01-28-2023 MCV (RBC) [Entitic vol] 100.0 fL 81-99 [facility] Hematocrit Auto (Bld) [Volum e fraction]Ordered By: Branden Banks on 01-28-2023 Hematocrit (Bld) [Volume fraction] 25.4 % 37-47 [facility] Laboratory - Hematology and Cell countsOrdered By: Branden Banks on 01-28-2023 Erythrocyte distribution width (RBC) [Entitic vol] 51.3 fL 35.1-43.9 [facility] Erythrocyte distribution width (RBC) [Ratio] 14.2 % 11.6-14.6 [facility] Immature granulocytes/100 WBC (Bld) 2.500 % 0.0-0.9 [facility] Comment on above: IG% - Immature Granu locytes (promyelocytes, myelocytes and metamyelocytes) > 1% indicates that a LEFT SHIFT is Present. MCH (RBC) [Entitic mass] 29.9 pg 27.0-32.0 [facility] Nucleated RBC/100 WBC (Bld) [Ratio] 0 % 0-5 [facility] MCHC Auto (RBC) [Mass/Vol]Or dered By: Branden Banks on 01-28-2023 MCHC (RBC) [Mass/Vol] 29.9 g/dL 32-36 [facility] Platelets bldOrdered By: Miguel A Banks on 01-28-2023 Platelets (Bld) [#/Vol] 303 10*3/uL 150-450 [facility] Basophil percentageOrdered B y: Branden Banks on 01-27-2023 Chloride [Moles/Vol] 103 mmol/L 98-107 [facility] Glucose [Mass/Vol] 124 mg/dL 74-106 [facility] Comment on above: Fasting Glucose resu lt from 100 to 125 mg/dL suggests IMPAIRED HOMEOSTASIS per A.D.A. criteria. Potassium [Moles/Vol] 4.7 mmol/L 3.5-5.1 [facility] Sodium [Moles/Vol] 134 mmol/L 136-145 [facility] Laboratory - Chemistry and C hemistry - challengeOrdered By: Branden Banks on 01-27-2023 CO2 [Moles/Vol] 26.0 mmol/L 21.0-32.0 [facility] Urea nitrogen/Creatinine [Mass ratio] 11.1 mg/mg 10-20 [facility] No Panel InformationOrdered By: Branden Banks on 01-27-2023 Estimated Creatinine Clearance Calc 10.98 ml/min [facility] Estimated GFR (MDRD) Amer 10 mL/min >60 [facility] Comment on above: GFR Calc Estimated GFR (MDRD) Non-Af Amer 8 mL/min >60 [facility] Comment on above: Non- GFR Calc Serum or plasma calcium joya urement (mass/volume)Ordered By: Branden Banks on 01-27-2023 Calcium [Mass/Vol] 8.3 mg/dL 8.5-10.1 [facility] Serum or plasma creatinine m easurement (mass/volume)Ordered By: Branden Banks on 01-27-2023 Creatinine [Mass/Vol] 5.70 mg/dL 0.55-1.02 [facility] Comment on above: The validity of the calculated GFR & GFRAA in patients over 70 years has not been determined. Clinical correlation is essential. Serum or plasma urea nitroge n measurement (mass/volume)Ordered By: Branden Banks on 01-27-2023 Urea nitrogen [Mass/Vol] 63 mg/dL 7-18 [facility] Thin prep Papanicolaou smear with manual screeningOrdered By: Branden Banks on 01-27-2023 Thin prep Papanicolaou smear with manual screening 5 5-15 [facility] Blood manual differential co mment interpretation (narrative result)Ordered By: Branden Banks on 01-26-2023 Manual differential comment Mauricio (Bld) [Interp] SCANNED [facility] Comment on above: LYMPHOPENIA PRESENT Basophil percentageOrdered B y: Maday Mistry on 01-23-2023 Basophil percentage 4.6 mg/dL 2.5-4.9 [facility] Serum or plasma albumin joya urement (mass/volume)Ordered By: Maday Garyichichris on 01-23-2023 Albumin [Mass/Vol] 2.3 g/dL 3.2-5.0 [facility] Hemoglobin in reticulocytes (mass per reticulocyte)Ordered By: Branden Banks on 01-21-2023 Hemoglobin (Reticulocytes) [Entitic mass] 32.9 pg 30-35 [facility] Iron measurement (mass/mass) Ordered By: Branden Banks on 01-21-2023 Iron (Unsp spec) [Mass/Mass] 21 ug/dL 50-170 [facility] Laboratory - Chemistry and C hemistry - challengeOrdered By: Branden Banks on 01-21-2023 Cobalamin (Vitamin B12) [Mass/Vol] 543 pg/mL 211-911 [facility] No Panel InformationOrdered By: Branden Banks on 01-21-2023 Immature Reticulocyte Fraction 9.80 % 3.00-15.90 [facility] Reticulocyte Count 1.09 % 0.5-1.5 [facility] Total Iron Binding Capacity 256 ug/dL 250-450 [facility] Vitamin D 25-Hydroxy 83.2 ng/mL [facility] Comment on above: Vitamin D 25(OH) Sta tus Range Deficiency <20 ng/mL (50nmol/L) Insufficiency 20 - 30 ng/mL (50 - 75 nmol/L) Sufficiency 30 - 100 ng/mL (75 - 250 nmol/L) Toxicity >100 ng/mL (>250 nmol/L) Serum or plasma ferritin lino surement (mass/volume)Ordered By: Branden Banks on 01-21-2023 Ferritin [Mass/Vol] 307 ng/mL 8-252 [facility] Serum or plasma iron saturat ion measurement (mass fraction)Ordered By: Branden Banks on 01-21-2023 Iron saturation [Mass fraction] 8.2 % 15.0-55.0 [facility] Whole blood hemoglobin A1c/t otal hemoglobin ratio (mass fraction)Ordered By: Branden Banks on 01-21-2023 HbA1c (Bld) [Mass fraction] 5.8 % 3.8-5.6 [facility] Comment on above: Normal < 5.7 % Predi abetic 5.7 - 6.4 % Diabetic >or= 6.5 % Please note range changes. Laboratory - Chemistry and C hemistry - challengeOrdered By: Mone Riggs on 01-20-2023 Magnesium [Mass/Vol] 2.1 mg/dL 1.6-2.6 [facility] Laboratory - CoagulationOrde red By: Sylvester Lee on 01-20-2023 aPTT Coag (Bld) [Time] 36.9 s 24.1-36.2 [facility] No Panel InformationOrdered By: Deshawn Tucker on 01-20-2023 Parathyroid Hormone (Intact) 433.9 pg/mL 18.4-80.1 [facility] No Panel InformationOrdered By: Mone Riggs on 01-20-2023 Thyroid Stimulating Hormone (TSH) 3.09 uIU/mL 0.358-3.74 [facility] Absolute lymphocyte countOrd ered By: Yariel Wilks on 01-19-2023 Lymphocytes Auto (Unsp spec) [#/Vol] 1.46 10*3/uL 0.83-4.51 [facility] Basophil percentageOrdered B y: Mone Riggs on 01-19-2023 Chloride [Moles/Vol] 107 mmol/L 98-107 [facility] Glucose [Mass/Vol] 88 mg/dL 74-106 [facility] Potassium [Moles/Vol] 5.7 mmol/L 3.5-5.1 [facility] Sodium [Moles/Vol] 141 mmol/L 136-145 [facility] Basophil percentageOrdered B y: Yariel Wilks on 01-19-2023 Basophils/100 WBC (Bld) 0.7 % 0-1 [facility] Eosinophils/100 WBC (Bld) 4.1 % 0-5 [facility] Neutrophils (Bld) [#/Vol] 3.2 10*3/uL 2.0-7.7 [facility] Neutrophils/100 WBC (Bld) 59.5 % 47-70 [facility] WBC (Bld) [#/Vol] 5.4 10*3/uL 4.4-11.0 [facility] Blood erythrocytes count (nu mber/volume)Ordered By: Yariel Wilks on 01-19-2023 RBC (Bld) [#/Vol] 3.37 10*6/uL 4.2-5.4 [facility] Blood hemoglobin measurement (mass/volume)Ordered By: Yariel Wilks on 01-19-2023 Hemoglobin (Bld) [Mass/Vol] 10.2 g/dL 12.0-15.0 [facility] Blood lymphocytes/100 leukoc ytesOrdered By: Yariel Wilks on 01-19-2023 Lymphocytes/100 WBC (Bld) 27.1 % 19-41 [facility] Blood monocytes/100 leukocyt esOrdered By: Yariel Wilks on 01-19-2023 Monocytes/100 WBC (Bld) 8.2 % 0-10 [facility] Blood platelet mean volumeOr dered By: Yariel Wilks on 01-19-2023 Platelet mean volume (Bld) [Entitic vol] 9.1 fL 6.2-12.0 [facility] Determination of erythrocyte mean corpuscular volume (MCV)Ordered By: Yariel Wilks on 01-19-2023 MCV (RBC) [Entitic vol] 101.5 fL 81-99 [facility] Hematocrit Auto (Bld) [Volum e fraction]Ordered By: Yariel Wilks on 01-19-2023 Hematocrit (Bld) [Volume fraction] 34.2 % 37-47 [facility] Laboratory - Chemistry and C hemistry - challengeOrdered By: Mone Riggs on 01-19-2023 CO2 [Moles/Vol] 27.0 mmol/L 21.0-32.0 [facility] Urea nitrogen/Creatinine [Mass ratio] 9.2 mg/mg 10-20 [facility] Laboratory - Hematology and Cell countsOrdered By: Yariel Wilks on 01-19-2023 Erythrocyte distribution width (RBC) [Entitic vol] 54.0 fL 35.1-43.9 [facility] Erythrocyte distribution width (RBC) [Ratio] 14.4 % 11.6-14.6 [facility] Immature granulocytes/100 WBC (Bld) 0.400 % 0.0-0.9 [facility] Comment on above: IG% - Immature Granu locytes (promyelocytes, myelocytes and metamyelocytes) > 1% indicates that a LEFT SHIFT is Present. MCH (RBC) [Entitic mass] 30.3 pg 27.0-32.0 [facility] Nucleated RBC/100 WBC (Bld) [Ratio] 0 % 0-5 [facility] MCHC Auto (RBC) [Mass/Vol]Or dered By: Yariel Wilks on 01-19-2023 MCHC (RBC) [Mass/Vol] 29.8 g/dL 32-36 [facility] No Panel InformationOrdered By: Mone Riggs on 01-19-2023 Estimated Creatinine Clearance Calc 11.73 ml/min [facility] Estimated GFR (MDRD) Amer 11 mL/min >60 [facility] Comment on above: GFR Calc Estimated GFR (MDRD) Non-Af Amer 9 mL/min >60 [facility] Comment on above: Non- GFR Calc Platelets bldOrdered By: Franki Wilks on 01-19-2023 Platelets (Bld) [#/Vol] 164 10*3/uL 150-450 [facility] Serum or plasma calcium joya urement (mass/volume)Ordered By: Mone Riggs on 01-19-2023 Calcium [Mass/Vol] 8.4 mg/dL 8.5-10.1 [facility] Serum or plasma creatinine m easurement (mass/volume)Ordered By: Mone Riggs on 01-19-2023 Creatinine [Mass/Vol] 5.34 mg/dL 0.55-1.02 [facility] Comment on above: The validity of the calculated GFR & GFRAA in patients over 70 years has not been determined. Clinical correlation is essential. Serum or plasma urea nitroge n measurement (mass/volume)Ordered By: Mone Riggs on 01-19-2023 Urea nitrogen [Mass/Vol] 49 mg/dL 7-18 [facility] Thin prep Papanicolaou smear with manual screeningOrdered By: Mone Riggs on 01-19-2023 Thin prep Papanicolaou smear with manual screening 7 5-15 [facility] XR TIBIA FIBULA 2V AP/LAT RI DOROTHEATon 12-15-2022 [facility] UA DIP, URINE (POC)on 2022 BILIRUBIN UA (POCT) Negative Negative [facility] CLARITY UA (POCT) Cloudy [facility] COLOR UA (POCT) Yellow [facility] GLUCOSE UA (POCT) Negative Negative mg/dL [facility] Hemoglobin Ql (U) Small Abnormal Negative [facility] KETONE UA (POCT) Negative Negative mg/dL [facility] LEUKOCYTES UA (POCT) Large Abnormal Negative [facility] NITRITE UA (POCT) Negative Negative [facility] PH UA (POCT) 8.5 Abnormal 4.5 - 8.0 [facility] Protein Ql (U) 100 mg/dL Abnormal Negative mg/dL [facility] SPECIFIC GRAVITY UA (POCT) 1.015 1.005 - 1.030 [facility] UROBILINOGEN UA (POCT) 0.2 E.U./dL Rosa l E.U./dL [facility] No Panel Informationon 11-10 [facility] Absolute lymphocyte countOrd ered By: Audra Ahuja on 10-30-2022 Lymphocytes Auto (Unsp spec) [#/Vol] 0.97 10*3/uL 0.83-4.51 [facility] Basophil percentageOrdered B y: Audra Ahuja on 10-30-2022 Basophils/100 WBC (Bld) 0.7 % 0-1 [facility] Chloride [Moles/Vol] 97 mmol[facility]L 98-[facility] E[facility] WBC (Bld) 3.2 % 0-5 [facility] Glucose [Mass/Vol] 73 mg/dL 74-106 [facility] Neutrophils (Bld) [#/Vol] 2.9 10*3/uL 2.0-7.7 [facility] Neutrophils/100 WBC (Bld) 65.5 % 47-70 [facility] Potassium [Moles/Vol] 4.2 mmol/L 3.5-5.1 [facility] Sodium [Moles/Vol] 132 mmol/L 136-145 [facility] WBC (Bld) [#/Vol] 4.4 10*3/uL 4.4-11.0 [facility] Blood erythrocytes count (nu mber/volume)Ordered By: Audra Ahuja on 10-30-2022 RBC (Bld) [#/Vol] 3.29 10*6/uL 4.2-5.4 [facility] Blood hemoglobin measurement (mass/volume)Ordered By: Audra Ahuja on 10-30-2022 Hemoglobin (Bld) [Mass/Vol] 10.5 g/dL 12.0-15.0 [facility] Blood lymphocytes/100 leukoc ytesOrdered By: Audra Ahuja on 10-30-2022 Lymphocytes/100 WBC (Bld) 21.8 % 19-41 [facility] Blood monocytes/100 leukocyt esOrdered By: Audra Ahuja on 10-30-2022 Monocytes/100 WBC (Bld) 8.6 % 0-10 [facility] Blood platelet mean volumeOr dered By: Audra Ahuja on 10-30-2022 Platelet mean volume (Bld) [Entitic vol] 9.1 fL 6.2-12.0 [facility] Determination of erythrocyte mean corpuscular volume (MCV)Ordered By: Audra Ahuja on 10-30-2022 MCV (RBC) [Entitic vol] 103.0 fL 81-99 [facility] Hematocrit Auto (Bld) [Volum e fraction]Ordered By: Audra Ahuja on 10-30-2022 Hematocrit (Bld) [Volume fraction] 33.9 % 37-47 [facility] Laboratory - Chemistry and C hemistry - challengeOrdered By: Audra Ahuja on 10-30-2022 CO2 [Moles/Vol] 30.0 mmol/L 21.0-32.0 [facility] Urea nitrogen/Creatinine [Mass ratio] 3.8 mg/mg 10-20 [facility] Laboratory - Hematology and Cell countsOrdered By: Audra Ahuja on 10-30-2022 Erythrocyte distribution width (RBC) [Entitic vol] 53.3 fL 35.1-43.9 [facility] Erythrocyte distribution width (RBC) [Ratio] 14.3 % 11.6-14.6 [facility] Immature granulocytes/100 WBC (Bld) 0.200 % 0.0-0.9 [facility] Comment on above: IG% - Immature Granu locytes (promyelocytes, myelocytes and metamyelocytes) > 1% indicates that a LEFT SHIFT is Present. MCH (RBC) [Entitic mass] 31.9 pg 27.0-32.0 [facility] Nucleated RBC/100 WBC (Bld) [Ratio] 0 % 0-5 [facility] MCHC Auto (RBC) [Mass/Vol]Or dered By: Audra Ahuja on 10-30-2022 MCHC (RBC) [Mass/Vol] 31.0 g/dL 32-36 [facility] No Panel InformationOrdered By: Audra Ahuja on 10-30-2022 Troponin I High Sensitivity 17 pg/mL 3.0-54.0 [facility] Comment on above: Please Note: New [place] t Units and Gender Specific Reference Ranges. For more information see Policy Stat Procedure [place] High Sensitivity Troponin (TNIH) and attachments. Estimated Creatinine Clearance Calc 15.93 ml/min [facility] Estimated GFR (MDRD) Amer 15 mL/min >60 [facility] Comment on above: GFR Calc Estimated GFR (MDRD) Non-Af Amer 13 mL/min >60 [facility] Comment on above: Non- GFR Calc Platelets bldOrdered By: Luzmaria Ahuja on 10-30-2022 Platelets (Bld) [#/Vol] 188 10*3/uL 150-450 [facility] Serum or plasma calcium joya urement (mass/volume)Ordered By: Audra Ahuja on 10-30-2022 Calcium [Mass/Vol] 9.1 mg/dL 8.5-10.1 [facility] Serum or plasma creatinine m easurement (mass/volume)Ordered By: Audra Ahuja on 10-30-2022 Creatinine [Mass/Vol] 3.93 mg/dL 0.55-1.02 [facility] Comment on above: The validity of the calculated GFR & GFRAA in patients over 70 years has not been determined. Clinical correlation is essential. Serum or plasma urea nitroge n measurement (mass/volume)Ordered By: Audra Ahuja on 10-30-2022 Urea nitrogen [Mass/Vol] 15 mg/dL 7-18 [facility] Thin prep Papanicolaou smear with manual screeningOrdered By: Audra Ahuja on 10-30-2022 Thin prep Papanicolaou smear with manual screening 5 5-15 [facility] Basophil percentageOrdered B y: Tyler Murrieta on 09-24-2022 Basophil percentage 6.1 mg/dL 2.5-4.9 [facility] Chloride [Moles/Vol] 115 mmol/L 98-107 [facility] Glucose [Mass/Vol] 87 mg/dL 74-106 [facility] Potassium [Moles/Vol] 5.0 mmol/L 3.5-5.1 [facility] Sodium [Moles/Vol] 140 mmol/L 136-145 [facility] Laboratory - Chemistry and C hemistry - challengeOrdered By: Tyler Murrieta on 09-24-2022 CO2 [Moles/Vol] 18.0 mmol/L 21.0-32.0 [facility] Urea nitrogen/Creatinine [Mass ratio] 10.5 mg/mg 10-20 [facility] No Panel InformationOrdered By: Tyler Murrieta on 09-24-2022 Estimated GFR (MDRD) Amer 9 mL/min >60 [facility] Comment on above: GFR Calc Estimated GFR (MDRD) Non-Af Amer 7 mL/min >60 [facility] Comment on above: Non- GFR Calc Serum or plasma calcium joya urement (mass/volume)Ordered By: Tyler Murrieta on 09-24-2022 Calcium [Mass/Vol] 8.2 mg/dL 8.5-10.1 [facility] Serum or plasma creatinine m easurement (mass/volume)Ordered By: Tyler Murrieta on 09-24-2022 Creatinine [Mass/Vol] 6.22 mg/dL 0.55-1.02 [facility] Comment on above: The validity of the calculated GFR & GFRAA in patients over 70 years has not been determined. Clinical correlation is essential. Serum or plasma urea nitroge n measurement (mass/volume)Ordered By: Tyler Murrieta on 09-24-2022 Urea nitrogen [Mass/Vol] 65 mg/dL 7-18 [facility] Thin prep Papanicolaou smear with manual screeningOrdered By: Tyler Murrieta on 09-24-2022 Thin prep Papanicolaou smear with manual screening 7 5-15 [facility] Basophil percentageOrdered B y: Sofía Hill on 09-19-2022 Chloride [Moles/Vol] 115 mmol/L 98-107 [facility] Glucose [Mass/Vol] 96 mg/dL 74-106 [facility] Potassium [Moles/Vol] 4.4 mmol/L 3.5-5.1 [facility] Sodium [Moles/Vol] 141 mmol/L 136-145 [facility] - Chemistry and C hemistry - challengeOrdered By: Sofía Hill on 09-19-2022 CO2 [Moles/Vol] 18.0 mmol/L 21.0-32.0 [facility] Urea nitrogen/Creatinine [Mass ratio] 12.5 mg/mg 10-20 [facility] No Panel InformationOrdered By: Sofía Hill on 09-19-2022 Estimated GFR (MDRD) Amer 10 mL/min >60 [facility] Comment on above: GFR Calc Estimated GFR (MDRD) Non-Af Amer 8 mL/min >60 [facility] Comment on above: Non- GFR Calc Serum or plasma calcium joya urement (mass/volume)Ordered By: Sofía Hill on 09-19-2022 Calcium [Mass/Vol] 8.2 mg/dL 8.5-10.1 [facility] Serum or plasma creatinine m easurement (mass/volume)Ordered By: Sofía Hill on 09-19-2022 Creatinine [Mass/Vol] 5.84 mg/dL 0.55-1.02 [facility] Comment on above: The validity of the calculated GFR & GFRAA in patients over 70 years has not been determined. Clinical correlation is essential. Serum or plasma urea nitroge n measurement (mass/volume)Ordered By: Sofía Hill on 09-19-2022 Urea nitrogen [Mass/Vol] 73 mg/dL 7-18 [facility] Thin prep Papanicolaou smear with manual screeningOrdered By: Sofía Hill on 09-19-2022 Thin prep Papanicolaou smear with manual screening 8 5-15 [facility] Basophil percentageOrdered B y: Sofía Hill on 09-17-2022 Chloride [Moles/Vol] 112 mmol/L 98-107 [facility] Glucose [Mass/Vol] 98 mg/dL 74-106 [facility] Potassium [Moles/Vol] 4.9 mmol/L 3.5-5.1 [facility] Sodium [Moles/Vol] 141 mmol/L 136-145 [facility] - Chemistry and C hemistry - challengeOrdered By: Sofía Hill on 09-17-2022 CO2 [Moles/Vol] 18.0 mmol/L 21.0-32.0 [facility] Urea nitrogen/Creatinine [Mass ratio] 12.4 mg/mg 10-20 [facility] No Panel InformationOrdered By: Sofía Hill on 09-17-2022 Estimated GFR (MDRD) Amer 10 mL/min >60 [facility] Comment on above: GFR Calc Estimated GFR (MDRD) Non-Af Amer 8 mL/min >60 [facility] Comment on above: Non- GFR Calc Serum or plasma calcium joya urement (mass/volume)Ordered By: Sofía Hill on 09-17-2022 Calcium [Mass/Vol] 8.3 mg/dL 8.5-10.1 [facility] Serum or plasma creatinine m easurement (mass/volume)Ordered By: Sofía Hill on 09-17-2022 Creatinine [Mass/Vol] 5.88 mg/dL 0.55-1.02 [facility] Comment on above: The validity of the calculated GFR & GFRAA in patients over 70 years has not been determined. Clinical correlation is essential. Serum or plasma urea nitroge n measurement (mass/volume)Ordered By: Sofía Hill on 09-17-2022 Urea nitrogen [Mass/Vol] 73 mg/dL 7-18 [facility] Thin prep Papanicolaou smear with manual screeningOrdered By: Sofía Hill on 09-17-2022 Thin prep Papanicolaou smear with manual screening 11 - [facility] Absolute lymphocyte countOrd ered By: Allison Chang on 09-15-2022 Lymphocytes Auto (Unsp spec) [#/Vol] 1.50 10*3/uL 0.83-4.51 [facility] Basophil percentageOrdered B y: Allison Chang on 09-15-2022 Basophils/100 WBC (Bld) 0.5 % 0-1 [facility] Bilirubin [Mass/Vol] 0.30 mg/dL 0.20-1.00 [facility] Comment on above: For patients on eltr ombopag therapy, use of Dimension [place] TBIL is not recommended. Chloride [Moles/Vol] 111 mmol/L 98-107 [facility] Eosinophils/100 WBC (Bld) 4.6 % 0-5 [facility] Glucose [Mass/Vol] 147 mg/dL 74-106 [facility] Comment on above: Fasting Glucose resu lt greater than or equal to 126 mg/dL suggests DIABETES MELLITUS per A.D.A. criteria. Neutrophils (Bld) [#/Vol] 4.2 10*3/uL 2.0-7.7 [facility] Neutrophils/100 WBC (Bld) 64.7 % 47-70 [facility] Potassium [Moles/Vol] 5.4 mmol/L 3.5-5.1 [facility] Protein [Mass/Vol] 5.4 g/dL 6.4-8.2 [facility] Sodium [Moles/Vol] 136 mmol/L 136-145 [facility] WBC (Bld) [#/Vol] 6.6 10*3/uL 4.4-11.0 [facility] Blood erythrocytes count (nu mber/volume)Ordered By: Allison Chang on 09-15-2022 RBC (Bld) [#/Vol] 2.50 10*6/uL 4.2-5.4 [facility] Blood hemoglobin measurement (mass/volume)Ordered By: Allison Chang on 09-15-2022 Hemoglobin (Bld) [Mass/Vol] 7.7 g/dL 12.0-15.0 [facility] Blood lymphocytes/100 leukoc ytesOrdered By: Allison Chang on 09-15-2022 Lymphocytes/100 WBC (Bld) 22.9 % 19-41 [facility] Blood monocytes/100 leukocyt esOrdered By: Allison Chang on 09-15-2022 Monocytes/100 WBC (Bld) 6.7 % 0-10 [facility] Blood platelet mean volumeOr dered By: Allison Chang on 09-15-2022 Platelet mean volume (Bld) [Entitic vol] 9.8 fL 6.2-12.0 [facility] Determination of erythrocyte mean corpuscular volume (MCV)Ordered By: Allison Chang on 09-15-2022 MCV (RBC) [Entitic vol] 102.4 fL 81-99 [facility] Hematocrit Auto (Bld) [Volum e fraction]Ordered By: Allison Chang on 09-15-2022 Hematocrit (Bld) [Volume fraction] 25.6 % 37-47 [facility] Laboratory - Chemistry and C hemistry - challengeOrdered By: Allison Chang on 09-15-2022 ALP [Catalytic activity/Vol] 71 U/L 45-117 [facility] ALT [Catalytic activity/Vol] 17 U/L 13-56 [facility] CO2 [Moles/Vol] 18.0 mmol/L 21.0-32.0 [facility] Cobalamin (Vitamin B12) [Mass/Vol] 416 pg/mL 211-911 [facility] Globulin (S) [Mass/Vol] 3.0 g/dL 2.2-4.2 [facility] Urea nitrogen/Creatinine [Mass ratio] 12.0 mg/mg 10-20 [facility] Laboratory - Hematology and Cell countsOrdered By: Allison Chang on 09-15-2022 Erythrocyte distribution width (RBC) [Entitic vol] 47.8 fL 35.1-43.9 [facility] Erythrocyte distribution width (RBC) [Ratio] 12.8 % 11.6-14.6 [facility] Immature granulocytes/100 WBC (Bld) 0.600 % 0.0-0.9 [facility] Comment on above: IG% - Immature Granu locytes (promyelocytes, myelocytes and metamyelocytes) > 1% indicates that a LEFT SHIFT is Present. MCH (RBC) [Entitic mass] 30.8 pg 27.0-32.0 [facility] Nucleated RBC/100 WBC (Bld) [Ratio] 0 % 0-5 [facility] MCHC Auto (RBC) [Mass/Vol]Or dered By: Allison Chang on 09-15-2022 MCHC (RBC) [Mass/Vol] 30.1 g/dL 32-36 [facility] No Panel InformationOrdered By: Allison Chang on 09-15-2022 Estimated GFR (MDRD) Amer 10 mL/min >60 [facility] Comment on above: GFR Calc Estimated GFR (MDRD) Non-Af Amer 8 mL/min >60 [facility] Comment on above: Non- GFR Calc Vitamin D 25-Hydroxy 54.4 ng/mL [facility] Comment on above: Vitamin D 25(OH) Sta tus Range Deficiency <20 ng/mL (50nmol/L) Insufficiency 20 - 30 ng/mL (50 - 75 nmol/L) Sufficiency 30 - 100 ng/mL (75 - 250 nmol/L) Toxicity >100 ng/mL (>250 nmol/L) Platelets bldOrdered By: Joshua Chang on 09-15-2022 Platelets (Bld) [#/Vol] 150 10*3/uL 150-450 [facility] Serum or plasma albumin joya urement (mass/volume)Ordered By: Allison Chang on 09-15-2022 Albumin [Mass/Vol] 2.4 g/dL 3.2-5.0 [facility] Serum or plasma albumin/glob ulin mass ratioOrdered By: Allison Chang on 09-15-2022 Albumin/Globulin [Mass ratio] 0.8 {ratio} 0.9-2.4 [facility] Serum or plasma calcium joya urement (mass/volume)Ordered By: Allison Chang on 09-15-2022 Calcium [Mass/Vol] 8.0 mg/dL 8.5-10.1 [facility] Serum or plasma creatinine m easurement (mass/volume)Ordered By: Allison Chang on 09-15-2022 Creatinine [Mass/Vol] 5.73 mg/dL 0.55-1.02 [facility] Comment on above: The validity of the calculated GFR & GFRAA in patients over 70 years has not been determined. Clinical correlation is essential. Serum or plasma urea nitroge n measurement (mass/volume)Ordered By: Allison Chang on 09-15-2022 Urea nitrogen [Mass/Vol] 69 mg/dL 7-18 [facility] Thin prep Papanicolaou smear with manual screeningOrdered By: Allison Chang on 09-15-2022 Thin prep Papanicolaou smear with manual screening 16 U/L 15-37 [facility] Thin prep Papanicolaou smear with manual screening 7 5-15 [facility] Whole blood hemoglobin A1c/t otal hemoglobin ratio (mass fraction)Ordered By: Allison Chang on 09-15-2022 HbA1c (Bld) [Mass fraction] 7.5 % 3.8-5.6 [facility] Comment on above: Normal < 5.7 % Predi abetic 5.7 - 6.4 % Diabetic >or= 6.5 % Please note range changes. Glucose Glucometer (BldC) [M ass/Vol]Ordered By: Sylvester Ortiz on 09-12-2022 Glucose [Mass/Vol] 181 mg/dL 74-106 [facility] Comment on above: MANAGEMENT OF PATIEN T CARE PER NURSING PROTOCOL Absolute lymphocyte countOrd ered By: Lizzy Mahsa on 09-10-2022 Lymphocytes Auto (Unsp spec) [#/Vol] 1.47 10*3/uL 0.83-4.51 [facility] Basophil percentageOrdered B y: Lizzy Mahsa on 09-10-2022 Basophils/100 WBC (Bld) 0.6 % 0-1 [facility] Bilirubin [Mass/Vol] 0.40 mg/dL 0.20-1.00 [facility] Comment on above: For patients on eltr ombopag therapy, use of Dimension [place] TBIL is not recommended. Chloride [Moles/Vol] 110 mmol/L 98-107 [facility] Eosinophils/100 WBC (Bld) 2.3 % 0-5 [facility] Glucose [Mass/Vol] 243 mg/dL 74-106 [facility] Comment on above: Glucose result great er than or equal to 200 mg/dLsuggests DIABETES MELLITUS per A.D.A. criteria. Neutrophils (Bld) [#/Vol] 4.4 10*3/uL 2.0-7.7 [facility] Neutrophils/100 WBC (Bld) 66.3 % 47-70 [facility] Potassium [Moles/Vol] 5.0 mmol/L 3.5-5.1 [facility] Protein [Mass/Vol] 6.0 g/dL 6.4-8.2 [facility] Sodium [Moles/Vol] 137 mmol/L 136-145 [facility] WBC (Bld) [#/Vol] 6.6 10*3/uL 4.4-11.0 [facility] Basophil percentage 6.5 mg/dL 2.5-4.9 [facility] Basophil percentageOrdered B y: Minh Arroyo on 09-10-2022 Lactate [Moles/Vol] 0.8 mmol/L 0.4-2.0 [facility] Blood erythrocytes count (nu mber/volume)Ordered By: Lizzy Bragg on 09-10-2022 RBC (Bld) [#/Vol] 2.80 10*6/uL 4.2-5.4 [facility] Blood hemoglobin measurement (mass/volume)Ordered By: Lizzy Bragg on 09-10-2022 Hemoglobin (Bld) [Mass/Vol] 8.8 g/dL 12.0-15.0 [facility] Blood lymphocytes/100 leukoc ytesOrdered By: Lizzy Bragg on 09-10-2022 Lymphocytes/100 WBC (Bld) 22.2 % 19-41 [facility] Blood monocytes/100 leukocyt esOrdered By: Lizzy Bragg on 09-10-2022 Monocytes/100 WBC (Bld) 8.3 % 0-10 [facility] Blood platelet mean volumeOr dered By: Lizzy Bragg on 09-10-2022 Platelet mean volume (Bld) [Entitic vol] 9.5 fL 6.2-12.0 [facility] Determination of erythrocyte mean corpuscular volume (MCV)Ordered By: Lizzy Bragg on 09-10-2022 MCV (RBC) [Entitic vol] 97.5 fL 81-99 [facility] Erythrocyte sedimentation ra teOrdered By: Minh Arroyo on 09-10-2022 ESR (Bld) [Velocity] 21 mm/h 0-30 [facility] Hematocrit Auto (Bld) [Volum e fraction]Ordered By: Lizzy Bragg on 09-10-2022 Hematocrit (Bld) [Volume fraction] 27.3 % 37-47 [facility] Laboratory - Chemistry and C hemistry - challengeOrdered By: Lizzy Bragg on 09-10-2022 ALP [Catalytic activity/Vol] 86 U/L 45-117 [facility] ALT [Catalytic activity/Vol] 20 U/L 13-56 [facility] CO2 [Moles/Vol] 19.0 mmol/L 21.0-32.0 [facility] Globulin (S) [Mass/Vol] 3.4 g/dL 2.2-4.2 [facility] Urea nitrogen/Creatinine [Mass ratio] 9.5 mg/mg 10-20 [facility] Magnesium [Mass/Vol] 1.6 mg/dL 1.6-2.6 [facility] Laboratory - Hematology and Cell countsOrdered By: Lizzy Bragg on 09-10-2022 Erythrocyte distribution width (RBC) [Entitic vol] 45.5 fL 35.1-43.9 [facility] Erythrocyte distribution width (RBC) [Ratio] 12.8 % 11.6-14.6 [facility] Immature granulocytes/100 WBC (Bld) 0.300 % 0.0-0.9 [facility] Comment on above: IG% - Immature Granu locytes (promyelocytes, myelocytes and metamyelocytes) > 1% indicates that a LEFT SHIFT is Present. MCH (RBC) [Entitic mass] 31.4 pg 27.0-32.0 [facility] Nucleated RBC/100 WBC (Bld) [Ratio] 0 % 0-5 [facility] MCHC Auto (RBC) [Mass/Vol]Or dered By: Lizzy Bragg on 09-10-2022 MCHC (RBC) [Mass/Vol] 32.2 g/dL 32-36 [facility] No Panel InformationOrdered By: Lizzy Bragg on 09-10-2022 Estimated Creatinine Clearance Calc 11.95 ml/min [facility] Estimated GFR (MDRD) Amer 11 mL/min >60 [facility] Comment on above: GFR Calc Estimated GFR (MDRD) Non-Af Amer 9 mL/min >60 [facility] Comment on above: Non- GFR Calc Platelets bldOrdered By: Tg Bragg on 09-10-2022 Platelets (Bld) [#/Vol] 137 10*3/uL 150-450 [facility] Serum or plasma C reactive p rotein measurement (mass/volume)Ordered By: Minh Arroyo on 09-10-2022 CRP [Mass/Vol] 15.60 mg/L 0.0-3.0 [facility] Comment on above: C-Reactive Protein ( CRP) provides useful information for thediagnosis, therapy and monitoring of inflammatory processesand associated diseases. For the evaluation of Relative Riskfor Cardiovascular Disease, a High Sensitivity CRP (HSCRP)should be ordered. Serum or plasma albumin joya urement (mass/volume)Ordered By: Lizzy Bragg on 09-10-2022 Albumin [Mass/Vol] 2.6 g/dL 3.2-5.0 [facility] Serum or plasma albumin/glob ulin mass ratioOrdered By: Lizzy Bragg on 09-10-2022 Albumin/Globulin [Mass ratio] 0.8 {ratio} 0.9-2.4 [facility] Serum or plasma calcium joya urement (mass/volume)Ordered By: Lizzy Bragg on 09-10-2022 Calcium [Mass/Vol] 7.9 mg/dL 8.5-10.1 [facility] Serum or plasma creatinine m easurement (mass/volume)Ordered By: Lizzy Mahsa on 09-10-2022 Creatinine [Mass/Vol] 5.24 mg/dL 0.55-1.02 [facility] Comment on above: The validity of the calculated GFR & GFRAA in patients over 70 years has not been determined. Clinical correlation is essential. Serum or plasma urea nitroge n measurement (mass/volume)Ordered By: Lizzy Bragg on 09-10-2022 Urea nitrogen [Mass/Vol] 50 mg/dL 7-18 [facility] Thin prep Papanicolaou smear with manual screeningOrdered By: Lizzy Mahsa on 09-10-2022 Thin prep Papanicolaou smear with manual screening 23 U/L 15-37 [facility] Thin prep Papanicolaou smear with manual screening 8 5-15 [facility] XR CHEST 1V FRONTALon 2022 [facility] XR ELBOW GENERAL 2V AP/LAT R IGHTon 08-11-2022 [facility] ANES POSTPROC EVALon 023 ANES POSTPROC EVAL HNO ID: [id number] Author: Rashid Grace MD Service: Anesthesiology Author Type: Physician Type: Anesthesia Postprocedure Evaluation Filed: 07/24/2022 10:24 AM Note Text: POST ANESTHESIA EVALUATION NOTE : 1965 Procedure Summary Date: 07/24/22 Room / Location: OR04A / [facility] OR Anesthesia Start: 0810 Anesthesia Stop: 1016 Procedure: CREATION FISTULA ARTERIOVENOUS EXTREMITY UPPER (Left: Arm) Diagnosis: ESRD (end stage renal disease) (HCC) (ESRD (end stage renal disease) (HCC) [N18.6]) Surgeons: Jonathan Valenzuela MD Responsible Provider: Rashid Grace MD Anesthesia Type: general ASA Status: 4 Anesthesia Type: general Airway Type: ETT Last Vitals Vitals Value Taken Time BP 171/74 07/24/22 1015 Temp 36 ?C (96.8 ?F) 07/24/22 1014 Pulse 85 07/24/22 1023 Resp 15 07/24/22 1023 SpO2 99 % 07/24/22 1023 Vitals shown include unvalidated device data. Post Anesthesia Patient Status Patient Evaluation: PACU. PACU/ICU Patient Condition: stable. Anticipated Disposition: phase 2 then home. Neurological Status: aware and responsive. Pulmonary Status: breathing comfortably on room air Airway Control: returned to baseline unsupported. Cardiovascular Status: stable. Pain Management: clinically adequate Postoperative Hydration: acceptable. Intraoperative Events: no significant anesthesia events Post Operative Nausea/Vomiting Status: no significant post operative nausea or vomiting Recommendation: continue current plan of care. Anesthesia Observations No Documentation SIGNATURE: Rashid Grace MD PATIENT NAME: Margareth Gonzalez DATE: July 24, 2022 TIME: 10:24 AM CSN: [id number] [facility] ANES PRE-OPon 07-24-2022 ANES PRE-OP HNO ID: [id number] Author: Rashid Grace MD Service: Anesthesiology Author Type: Physician Type: Anesthesia Preprocedure Evaluation Filed: 07/24/2022 8:08 AM Note Text: ANESTHESIOLOGY DAY OF SURGERY NOTE : 1965 Procedure Information Date/Time: 07/24/22729 Procedure: CREATION FISTULA ARTERIOVENOUS EXTREMITY UPPER (Left: Arm) - NO RANGE EXAMINER NEEDED Location: [facility] OR04A / [facility] OR Surgeons: Jonathan Valenzuela MD Estimated body mass index is 36.04 kg/m? as calculated from the following: Height as of 06/30/22: 172.7 cm (5' 8). Weight as of 06/30/22: 107.5 kg (237 lb). Most recent hematocrit and potassium results: Hematocrit 30.7 06/30/2022 Hematocrit (POCT) 29 07/24/2022 Potassium 4.8 07/08/2022 Potassium (POCT) 4.9 07/24/2022 Relevant Problems ANESTHESIA (+) CASSIE (obstructive sleep apnea) CARDIO (+) Essential hypertension ENDO (+) Type 2 diabetes mellitus with stage 4 chronic kidney disease, without long-term current use of insulin (HCC) (+) Type 2 diabetes, controlled, with neuropathy (HCC) GI (+) GERD (gastroesophageal reflux disease) -RENAL (+) Anemia of renal disease (+) CKD (chronic kidney disease) Stage 4, GFR 15-29 ml/min (+) ESRD (end stage renal disease) (HCC) NEURO-PSYCH (+) Personal history of DVT (deep vein thrombosis) PULMONARY (+) Asthma (+) CASSIE (obstructive sleep apnea) I - PHYSICAL EVALUATION AIRWAY Patient intubated: No. Tracheostomy tube not present Mallampati: II. TM distance: >3 FB. Neck ROM: full ROM without neurological symptoms. Mouth opening: adequate. Short neck: no. Thick neck: no DENTAL Dental findings: poor dentition, broken tooth and missing tooth/teeth. Additional exam findings: yes. CARDIOVASCULAR Normal cardiovascular observations. Rhythm: regular PULMONARY Normal pulmonary observations. Breath sounds clear to auscultation. II - ANESTHESIA PLAN ASA Score: 4 Anesthetic Plan: general Airway type: ETT The patient is not a current smoker. NPO Status: adequate Beta Darvin Monitoring Plan Monitoring plan: standard ASA. Post Procedure Analgesic Plan Postoperative analgesic plan: multimodal analgesia. Informed Consent Anesthetic risks, benefits, alternatives, personnel and consent discussed: yes. Patient / Responsible Republican agrees to proceed: yes Patient / Surrogate agrees to blood products: Yes Significant changes in the patient condition since the History and Physical, not otherwise documented in primary service progress note: no. Potential Anesthesia issues that may suggest increased risk of complications or contraindication to planned procedure: none. Vitals Value Taken Time BP 189/85 07/24/22 0743 Pulse 83 07/24/22 0743 Resp 18 07/24/22 0743 Temp 36.1 ?C (97 ?F) 07/24/22 0743 SpO2 98 % 07/24/22 0743 Facility-Administer ed Medications as of 07/24/2022 Medication Dose Route Frequency - vancomycin 1,000 mg in NaCl 0.9% irrigation bag 1,000 mL X (OR/PROCEDURE) PRN - heparin 5,000 Units in sodium chloride 0.9 % 500 mL for irrigation X (OR/PROCEDURE) PRN Outpatient Medications as of 07/24/2022 Medication Sig - labetalol (TRANDATE) 100 mg tablet Take 1 tablet by mouth twice daily. - omeprazole (PRILOSEC) 20 mg capsule Take 1 capsule by mouth once daily. - sertraline (ZOLOFT) 50 mg tablet Take 1 tablet by mouth once daily. - amitriptyline (ELAVIL) 100 mg tablet Take 1 tablet by mouth daily at bedtime. - atorvastatin (LIPITOR) 40 mg tablet Take 1 tablet by mouth daily at bedtime. For cholesterol. - ondansetron orally disintegrating (ZOFRAN ODT) 4 mg disintegrating tablet Take 1 tablet by mouth every 8 hours as needed for nausea/vomiting. - famotidine (PEPCID) 20 mg tablet Take 1 tablet by mouth once daily as needed. - glipiZIDE (GLUCOTROL XL) 5 mg 24 hr tablet Take 2 tablets by mouth once daily. - sodium bicarbonate 650 mg tablet Take 2 tablets by mouth twice daily. - pioglitazone (ACTOS) 45 mg tablet Take 1 tablet by mouth once daily. - cholecalciferol (VITAMIN D3) 5,000 unit tab Take 5,000 Units by mouth twice daily. - aspirin, enteric coated (ADULT LOW DOSE ASPIRIN) 81 mg EC tablet Take 1 tablet by mouth once daily. - Yurkxvof-Ol-Lsn-Fe- FA ( VITAMIN) ORAL Tab Take 1 tablet by mouth once daily. - oxyCODONE-acetamino phen (PERCOCET) 5-325 mg tablet Take 1 tablet by mouth every 6 hours as needed for pain. - TRULICITY 1.5 mg/0.5 mL pen injector INJECT 1.5 MG UNDER THE SKIN ONCE A WEEK - flash glucose scanning reader (FREESTYLE FESTUS 2 READER) Use to check glucose 3 times daily and continuously. 1 per year. - flash glucose sensor (FREESTYLE FESTUS 2 SENSOR) kit Use to check glucose 3 times daily and continuously. Change every 14 days. 6 per 90 day supply. - baclofen (LIORESAL) 10 mg tablet Take 1 tablet by mouth three times daily as needed. I have interviewed and examined the patient. I have reviewed the medical record and/ (more content not included)... [facility] ANTIBODY ID PATIENTon 2022 ANTIBODY IDENTIFIED Anti-K, Anti-Fya [facility] Comment on above: Order Comment: Speci men Type: BLOOD SPECIMEN Ordering Facility: [facility] Address: [address] [place] [id number] Result Comment: Valerie ected result: Previously reported as Anti-K on 07/24/2022 at 1:38 PM EDT. Performed By: #### % CORDELL, TSCR, [id number] #### [facility] CLIA [id number] [id number] [facility] BLOOD BANK COMMENTon 023 BLOOD BANK COMMENT See Comment [facility] Comment on above: Order Comment: Speci men Type: BLOOD SPECIMEN Ordering Facility: [facility] Address: [address] [place] [address] Result Comment: See physician's report under antibody interpretation from 07/14/2012 Performed By: #### % CORDELL, TSCR, [id number] #### [facility] CLIA [id number] [id number] [facility] BRIEF OP NOTon 07-24-2022 BRIEF OP NOT HNO ID: [id number] Author: Yana Russell MD Service: Vascular Surgery Author Type: Resident Type: Brief Op Note Filed: 07/24/2022 10:21 AM Note Text: BRIEF OPERATIVE / PROCEDURE NOTE LOG ID: [id number] Surgery/Procedure Date: 07/24/2022 Incision/Procedure Start Time: 8:39 AM Incision Close/Procedure End Time: 10:04 AM Surgeon(s)/Procedur alist(s) and Yardage Control Operator Forming(s): Surgeon(s) and Role: * Jonathan Valenzuela MD - Primary * Yana Russell MD - Resident - Assisting No Additional Staff Procedure(s): Left forearm looped AVG Anesthesia: Choice - Anesthesia Consult ASA Class: Findings: palpable thrill in graft at conclusion of case Pulses: Palpable left radial pulse Medications: Antiplatelet: Yes - Medication: ASA Dose: 81 Anticoagulation: No Statin: Yes - Medication: lipitor Dose: 40mg Beta Darvin: Yes - Medication: labetalol Dose: 100mg Estimated Blood Loss: 50 mls Specimens: None Complications: None PRE-OP/PRE-PROCEDUR E DIAGNOSIS: ESRD POST-OP/POST-PROCED URE DIAGNOSIS: Same as Preop SIGNATURE: Yana Russell MD PATIENT NAME: Margareth Gonzalez DATE: July 24, 2022 TIME: 10:19 AM [facility] NURSING PROGon 07-24-2022 NURSING PROG HNO ID: [id number] Author: Lindy Acevedo RN Service: Nursing Author Type: Registered Nurse Type: Nursing Progress Note Filed: 07/24/2022 7:46 AM Note Text: PATIENT EDUCATION TOPIC: PROCEDURE / SURGERY: Pre-op Teaching: Logistics Protocols PATIENT NAME: Margareth Gonzalez PATIENT LOCATION: [facility] OR POOL/[facility] OR POOL READINESS TO LEARN COGNITIVE ABILITY: Alert and oriented MOTIVATION TO LEARN: Eager Interested FAMILY SUPPORT: None - Unavailable/disinte rested INSTRUCTION PROVIDED TO: Patient PATIENT LEARNS BEST BY: Verbal Instruction FACTORS AFFECTING LEARNING: None PHYSICAL LIMITATIONS AFFECTING LEARNING: None LEARNING RESPONSE DIAGNOSIS: ADULT: Well Adult PATIENT/FAMILY RESPONSE: Verbalizes understanding of: PRE-OPERATIVE INSTRUCTIONS-Correc t action to take to follow pre-operative instructions PRE-PROCEDURE INSTRUCTIONS-Correc t action to take to follow pre-procedure instructions METHOD OF INSTRUCTION: Verbal instruction FOLLOW-UP PLAN: Complete - No need for follow-up INSTRUCTIONAL AIDS USED: NA SUPPLEMENTAL MATERIAL PROVIDED TO PATIENT: None REFERRAL (RECOMMENDATION): None Electronically Signed By: Lindy Acevedo [facility] OPERATIVE NOon 07-24-2022 OPERATIVE NO HNO ID: [id number] Author: Jonathan Valenzuela MD Service: Vascular Surgery Author Type: Physician Type: Operative Report Filed: 07/24/2022 10:19 AM Note Text: OPERATIVE/PROCEDURE REPORT LOG ID: [id number] SURGERY/PROCEDURE DATE: 07/24/2022 INCISION/PROCEDURE START TIME: 8:39 AM INCISION CLOSE/PROCEDURE END TIME: 10:04 AM SURGEON(S)/PROCEDTAIWO ALIST(S) AND DIRECTOR OF MARKETING AND PROMOTIONS(S): Surgeon(s) and Role: * Jonathan Valenzuela MD - Primary * Yana Russell MD - Resident - Assisting No Additional Staff SURGERY/PROCEDURE(S ): Left forearm AVG with 4 x7 mm PTFE ANESTHESIA: Choice - Anesthesia Consult SURGERY/PROCEDURE DETAILS: The patient was identified by the attending surgeon and brought into the operating room. The patient was laid on the table in the supine position and received general anesthesia. The left arm was prepared and draped in the usual sterile fashion. Time out was performed. Incision was made in the left antecubital fossa and was deepened through subcutaneous tissue. The antebrachial vein and confluence with the upper arm cephalic vein, the median cubital vein and operator supply vein were all mobilized and skeletonized. The aponeurosis was incised sharply and the brachial bifurcation was mobilized and controlled with vessel loops. Flow was occluded through the arteries with the loops. The 4mm end of a 4 x 7 mm PTFE graft was spatulated and sewn end to side to the distal brachial artery. Anticoagulation was achieved locally with heparinized saline. The anastomosis was hemostatic with the addition of thrombin soaked gelfoam. The graft has excellent arterial flow and was then back-flushed with heparinized saline and clamped near the arterial anastomosis. A transverse counter incision was made on the distal volar forearm and the graft was tunneled along the ulnar side of the volar forearm to the counter incision. It was then tunneled along the radial side of the volar forearm back to the antecubital incision. It was cut to the appropriate length and spatulated. Venotomy in the cubital vein was made. Ouflow from the graft is via the cubital vein to the basilic vein. The graft was then sewn end to side to the cubital vein. Flow was allowed through the graft. Hemostasis of the suture line was augmented with thrombin soaked gel foam. The gel foam was removed. Hemostasis is satisfactory. There is a robust thrill in the AVG. The left radial pulse is palpable. The wounds were irrigated with antibiotic solution. They were all closed in layers with interrupted 3-0 vicryl suture and the skin incisions were closed with 4-0 monocryl suture. Glue was applied to the incisions. The patient was awoken from anesthesia and taken to the PACU in stable condition with a palpable thrill in the AVG. There were no complications immediately apparent. The patient tolerated the procedure well. The arterial limb of the graft is along the ulnar side of the forearm and the venous limb of the graft is along the radial side of the forearm. PRE-OP/PRE-PROCEDUR E DIAGNOSIS: CKD V POST-OP/POST-PROCED URE DIAGNOSIS: Same as Preop ESTIMATED BLOOD LOSS: 50 mls SPECIMENS: None IMPLANTABLE DEVICES: Implant Name Type Inv. Item Serial No. Compliance Vice President Lot No. LRB No. Used Action GRAFT 4-7MM STANDARD HELICOPTER MECHANIC GORE-SPENCER 45CM VASCULAR STRETCH STERILE - [id number] Graft GRAFT 4-7MM STANDARD HELICOPTER MECHANIC GORE-SPENCER 45CM VASCULAR STRETCH STERILE [id number] [address] CHANG AND Left 1 Implanted DRAINS: None COMPLICATIONS: None CLOSURE TECHNIQUE: Primary PARTICIPATION IN SURGERY/PROCEDURE: I/primary surgeon/procedurali st performed the procedure with assistance. SIGNATURE: Jonathan Valenzuela MD PATIENT NAME: Margareth Gonzalez DATE: July 24, 2022 TIME: 10:02 AM [facility] TYPE + SCREENon 07-24-2022 [facility] Comment on above: Order Comment: Speci men Type: BLOOD SPECIMEN Ordering Facility: [facility] Address: [address] [place] [address] Performed By: #### % CORDELL, TSCR, [id number] #### [facility] CLIA [id number] [address] [place] [address] HISTORICAL AB SCR STATUS Positive [facility] Comment on above: Order Comment: Speci men Type: BLOOD SPECIMEN Ordering Facility: [facility] Address: [address] [place] [address] Performed By: #### % CORDELL, TSCR, [id number] #### [facility] CLIA [id number] [address] [place] [address] STATES [facility] Rh Nom (Bld) Positive [facility] Comment on above: Order Comment: Speci men Type: BLOOD SPECIMEN Ordering Facility: [facility] Address: [address] [place] [address] Performed By: #### % CORDELL, TSCR, [id number] #### [facility] CLIA [id number] [address] [place] [address] [place] TYPE AND SCREEN EXPIRATION 07/27/2022 23:59 [facility] Comment on above: Order Comment: Speci men Type: BLOOD SPECIMEN Ordering Facility: [facility] Address: [address] [place] [address] Performed By: #### % CORDELL, TSCR, [id number] #### [facility] CLIA [id number] [address] [place] [address] [place] URINE CULTUREon 07-02-2022 Bacteria identified Cx Nom (U) Mixed microbiota: [facility] Bacteria identified Cx Nom (U) 10,000 -<50,000 CFU/ml Enterococcus faecalis Abnormal [facility] Bacteria identified Cx Nom (U) Negative Abnormal [facility] Comprehensive metabolic 2000 panelon 07-01-2022 Albumin [Mass/Vol] 3.6 g/dL Low 3.9 - 4.9 g/dL [facility] ALP [Catalytic activity/Vol] 101 U/L 34 - 123 U/L [facility] ALT [Catalytic activity/Vol] 32 U/L 7 - 38 U/L [facility] Anion gap [Moles/Vol] 10 mmol/L 9 - 18 mmol/L [facility] AST [Catalytic activity/Vol] 34 U/L 13 - 35 U/L [facility] Bilirubin [Mass/Vol] 0.2 mg/dL 0.2 - 1 .3 mg/dL [facility] Calcium [Mass/Vol] 8.5 mg/dL 8.5 - 10. 2 mg/dL [facility] Chloride [Moles/Vol] 100 mmol/L 97 - 10 5 mmol/L [facility] CO2 [Moles/Vol] 24 mmol/L 22 - 30 mmol/L [facility] Creatinine [Mass/Vol] 4.37 mg/dL High 0.58 - 0.96 mg/dL [facility] Estimated Glomerular Filtration Rate 11 mL/min/1.73m Low >=60 mL/min/1.73m [facility] Glucose [Mass/Vol] 361 mg/dL High 74 - 99 mg/dL [facility] Potassium [Moles/Vol] 5.9 mmol/L High 3.7 - 5.1 mmol/L [facility] Protein [Mass/Vol] 6.1 g/dL Low 6.3 - 8.0 g/dL [facility] Sodium [Moles/Vol] 134 mmol/L Low 136 - 144 mmol/L [facility] Urea nitrogen [Mass/Vol] 47 mg/dL High 7 - 21 mg/d L [facility] CBC W Auto Differential pane l (Bld)on 06-30-2022 Basophils (Bld) [#/Vol] 0.04 10*3/uL <0.11 k/uL [facility] Basophils/100 WBC (Bld) 0.6 % [facility] Differential cell count method Nom (Bld) Auto [facility] Eosinophils (Bld) [#/Vol] 0.21 10*3/uL <0.46 k/uL [facility] Eosinophils/100 WBC (Bld) 3.4 % [facility] Erythrocyte distribution width (RBC) [Ratio] 12.1 % 11.5 - 15.0 % [facility] Hematocrit (Bld) [Volume fraction] 30.7 % Low 36.0 - 46.0 % [facility] Hemoglobin (Bld) [Mass/Vol] 10.0 g/dL Low 11.5 - 15.5 g/dL [facility] Immature granulocytes (Bld) [#/Vol] 0.03 10*3/uL <0.10 k/uL [facility] Immature granulocytes/100 WBC (Bld) 0.5 % [facility] Lymphocytes (Bld) [#/Vol] 1.56 10*3/uL 1.00 - 4.00 k/uL [facility] Lymphocytes/100 WBC (Bld) 25.1 % [facility] MCH (RBC) [Entitic mass] 31.6 pg 26. 0 - 34.0 pg [facility] MCHC (RBC) [Mass/Vol] 32.6 g/dL 30.5 - 36.0 g/dL [facility] MCV (RBC) [Entitic vol] 97.2 fL 80.0 - 100.0 fL [facility] Monocytes (Bld) [#/Vol] 0.39 10*3/uL <0.87 k/uL [facility] Monocytes/100 WBC (Bld) 6.3 % [facility] Neutrophils (Bld) [#/Vol] 3.99 10*3/uL 1.45 - 7.50 k/uL [facility] Neutrophils/100 WBC (Bld) 64.1 % [facility] Nucleated RBC (Bld) [#/Vol] <0.01 k/uL [facility] Nucleated RBC/100 WBC (Bld) [Ratio] 0.0 /100 WBC [facility] Platelet mean volume (Bld) [Entitic vol] 9.0 fL 9.0 - 12.7 fL [facility] Platelets (Bld) [#/Vol] 184 10*3/uL 150 - 400 k/uL [facility] RBC (Bld) [#/Vol] 3.16 10*6/uL Low 3.90 - 5.2 0 m/uL [facility] WBC (Bld) [#/Vol] 6.22 10*3/uL 3.70 - 11. 00 k/uL [facility] URINE CULTUREon 06-30-2022 Bacteria identified Cx Nom (U) Invalid Interpretation Code [facility] UA DIP, URINE (POC)on 2022 BILIRUBIN UA (POCT) Negative Negative [facility] CLARITY UA (POCT) Cloudy [facility] COLOR UA (POCT) Yellow [facility] GLUCOSE UA (POCT) 250 mg/dL Abnormal Negative mg/dL [facility] HEMOGLOBIN/BLOOD UA (POCT) Moderate Abnormal Negative [facility] KETONE UA (POCT) Negative Negative mg/dL [facility] LEUKOCYTES UA (POCT) Moderate Abnormal Negative [facility] NITRITE UA (POCT) Negative Negative [facility] PH UA (POCT) 5.5 4.5 - 8.0 [facility] Protein Ql (U) >=300 Abnormal Negative mg/dL [facility] SPECIFIC GRAVITY UA (POCT) 1.020 1.005 - 1.030 [facility] UROBILINOGEN UA (POCT) 0.2 E.U./dL Rosa l E.U./dL [facility] MARYLU SCREENINGon 04-10-2022 [facility] XR KNEE GENERAL 4V AP BOTH/P A BOTH/LAT/MERC LEFTon 04-10-2022 [facility] UA DIP, URINE (POC)on 2022 BILIRUBIN UA (POCT) Negative Negative [facility] CLARITY UA (POCT) [facility] COLOR UA (POCT) Yellow [facility] GLUCOSE UA (POCT) 100 mg/dL Abnormal Negative mg/dL [facility] HEMOGLOBIN/BLOOD UA (POCT) Moderate Abnormal Negative [facility] KETONE UA (POCT) Negative Negative mg/dL [facility] LEUKOCYTES UA (POCT) Large Abnormal Negative [facility] NITRITE UA (POCT) Positive Abnormal Negative [facility] PH UA (POCT) 7.0 4.5 - 8.0 [facility] Protein Ql (U) 100 mg/dL Abnormal Negative mg/dL [facility] SPECIFIC GRAVITY UA (POCT) 1.020 1.005 - 1.030 [facility] UROBILINOGEN UA (POCT) 0.2 E.U./dL Rosa l E.U./dL [facility] Influenza virus A and B RNA and SARS-CoV-2 (COVID-19) N gene panel CAR+probe (Resp)on 03-05-2022 FLUAV RNA CAR+probe Ql (Unsp spec) Negative Negative for Influenza A by RT-PCR [facility] FLUBV RNA CAR+probe Ql (Unsp spec) Negative Negative for Influenza B by RT-PCR [facility] SARS-CoV-2 (COVID-19) RNA CAR+probe Ql (Resp) SARS-CoV-2 (Agent of COVID-19) Not Detected by RT-PCR or equivalent method. Not Detected [facility] XR FOOT GENERAL 3V AP/LAT/OB L LEFTon 02-18-2022 [facility] XR Foot - left AP and Latera l and obliqueon 02-18-2022 IMPRESSION: 1. Mild degenerative changes in dorsal calcaneal enthesophyte. 2. Atherosclerotic disease. Allergist/Md: SHAMAR Transcribe Date/Time: Feb 18 2022 9:22A Dictated by : VIDA ROGERS MD This examination was interpreted and the report reviewed and electronically signed by: VIDA ROGERS MD on Feb 18 2022 9:24AM [facility] DIVISION OF RADIOLOGY * * *Final Report* * * DATE OF EXAM: Feb 18 2022 9:19AM WOX 5336 - XR FOOT 3V AP/LAT/OBL LT / PROCEDURE REASON: Foot pain, left * * * * Physician Interpretation * * * * TITLE: XR FOOT 3V AP/LAT/OBL LT CLINICAL INDICATION: For pain TECHNIQUE: 3 view radiographic study of the left foot COMPARISON: Radiograph dated January 11, 2019 FINDINGS: Osseous demineralization. No acute fracture or dislocation. Mild midfoot degenerative changes with mild dorsal hypertrophic spurring. Dorsal calcaneal enthesophytes. Atherosclerotic calcification of the vasculature. DIVISION OF RADIOLOGY Provider, [facility] - 02/18/2022 * * *Final Report* * * DATE OF EXAM: Feb 18 2022 9:19AM WOX 5336 - XR FOOT 3V AP/LAT/OBL LT / PROCEDURE REASON: Foot pain, left * * * * Physician Interpretation * * * * TITLE: XR FOOT 3V AP/LAT/OBL LT CLINICAL INDICATION: For pain TECHNIQUE: 3 view radiographic study of the left foot COMPARISON: Radiograph dated January 11, 2019 FINDINGS: Osseous demineralization. No acute fracture or dislocation. Mild midfoot degenerative changes with mild dorsal hypertrophic spurring. Dorsal calcaneal enthesophytes. Atherosclerotic calcification of the vasculature. IMPRESSION IMPRESSION: 1. Mild degenerative changes in dorsal calcaneal enthesophyte. 2. Atherosclerotic disease. Allergist/Md: SHAMAR Transcribe Date/Time: Feb 18 2022 9:22A Dictated by : VIDA ROGERS MD This examination was interpreted and the report reviewed and electronically signed by: VIDA ROGERS MD on Feb 18 2022 9:24AM EST [facility] Radiology Study observation (narrative) [facility] XR Foot - left AP and Latera l and obliqueOrdered By: Ccf Provider on 02-18-[address] [facility] [address] CHEST WO IVCONon 08-16-19 [facility] NM CARDIAC PERF STRESS/PHARM on 08-15-2021 Radiology Result ACTIONABLE Abnormal [facility] CBC W Auto Differential pane l (Bld)on 07-31-2021 Abs Immature Gran <0.03 <0.10 k/uL [facility] Basophils (Bld) [#/Vol] 0.05 10*3/uL <0.11 k/uL [facility] Basophils/100 WBC (Bld) 1.0 % [facility] Differential cell count method Nom (Bld) Auto [facility] Eosinophils (Bld) [#/Vol] 0.23 10*3/uL <0.46 k/uL [facility] Eosinophils/100 WBC (Bld) 4.6 % [facility] Erythrocyte distribution width (RBC) [Ratio] 12.8 % 11.5 - 15.0 % [facility] Hematocrit (Bld) [Volume fraction] 30.8 % Low 36.0 - 46.0 % [facility] Hemoglobin (Bld) [Mass/Vol] 9.3 g/dL Low 11.5 - 15.5 g/dL [facility] Immature Gran % 0.2 % [facility] Lymphocytes (Bld) [#/Vol] 1.83 10*3/uL 1.00 - 4.00 k/uL [facility] Lymphocytes/100 WBC (Bld) 36.5 % [facility] MCH (RBC) [Entitic mass] 29.2 pg 26. 0 - 34.0 pg [facility] MCHC (RBC) [Mass/Vol] 30.2 g/dL Low 30.5 - 36.0 g/dL [facility] MCV (RBC) [Entitic vol] 96.9 fL 80.0 - 100.0 fL [facility] Monocytes (Bld) [#/Vol] 0.33 10*3/uL <0.87 k/uL [facility] Monocytes/100 WBC (Bld) 6.6 % [facility] Neutrophils (Bld) [#/Vol] 2.56 10*3/uL 1.45 - 7.50 k/uL [facility] Neutrophils/100 WBC (Bld) 51.1 % [facility] Nucleated RBC (Bld) [#/Vol] 10*3/uL <0.01 k/uL [facility] Nucleated RBC/100 WBC (Bld) [Ratio] 0.0 /100 WBC [facility] Platelet mean volume (Bld) [Entitic vol] 9.7 fL 9.0 - 12.7 fL [facility] Platelets (Bld) [#/Vol] 197 10*3/uL 150 - 400 k/uL [facility] RBC (Bld) [#/Vol] 3.18 10*6/uL Low 3.90 - 5.2 0 m/uL [facility] WBC (Bld) [#/Vol] 5.01 10*3/uL 3.70 - 11. 00 k/uL [facility] PROTEIN CREATININE RATIOon 0 07-31-2021 Protein/Creatinine (U) [Mass ratio] 0.6 mg/g High <0.2 [facility] PTH INTACT BLDon 07-31-2021 Parathyrin.intact [Mass/Vol] 473 pg/mL High 15 - 65 pg/mL [facility] Protein/Creatinine (U) [Mass ratio]on 07-31-2021 Creatinine (U) [Mass/Vol] 65.6 mg/dL 20.0 - 300.0 mg/dL [facility] Protein (U) [Mass/Vol] 39 mg/dL High 0 - 20 mg/dL [facility] Renal function 2000 panelon 07-31-2021 Albumin [Mass/Vol] 3.7 g/dL Low 3.9 - 4.9 g/dL [facility] Anion gap [Moles/Vol] 14 mmol/L 9 - 18 mmol/L [facility] Calcium [Mass/Vol] 8.5 mg/dL 8.5 - 10. 2 mg/dL [facility] Chloride [Moles/Vol] 104 mmol/L 97 - 10 5 mmol/L [facility] CO2 [Moles/Vol] 18 mmol/L Low 22 - 30 mmol/L [facility] Creatinine [Mass/Vol] 3.75 mg/dL High 0.58 - 0.96 mg/dL [facility] Estimated Glomerular Filtration Rate 14 mL/min/1.73m Low >=60 mL/min/1.73m [facility] Glucose [Mass/Vol] 172 mg/dL High 74 - 99 mg/dL [facility] Phosphate [Mass/Vol] 5.8 mg/dL High 2.7 - 4 .8 mg/dL [facility] Potassium [Moles/Vol] 4.8 mmol/L 3.7 - 5.1 mmol/L [facility] Sodium [Moles/Vol] 136 mmol/L 136 - 144 mmol/L [facility] Urea nitrogen [Mass/Vol] 38 mg/dL High 7 - 21 mg/d L [facility] VITAMIN D 25 HYDROXYon 07-31 25-hydroxyvitamin D3 [Mass/Vol] 51.0 ng/mL 31.0 - 80.0 ng/mL [facility] Absolute lymphocyte counton 07-29-2021 Lymphocytes Auto (Unsp spec) [#/Vol] 1.72 10*3/uL 0.83-4.51 [facility] Work Phone: Basophil percentageon 2021 Basophils/100 WBC (Bld) 0.7 % 0-1 [facility] Work Phone: Bilirubin [Mass/Vol] 0.30 mg/dL 0.20-1.00 [facility] Work Phone: Comment on above: For patients on eltr ombopag therapy, use of Dimension [place] TBIL is not recommended. Chloride [Moles/Vol] 111 mmol/L 98-107 [facility] Work Phone: Eosinophils/100 WBC (Bld) 3.7 % 0-5 [facility] Work Phone: Glucose [Mass/Vol] 196 mg/dL 74-106 [facility] Work Phone: Comment on above: Fasting Glucose resu lt greater than or equal to 126 mg/dL suggests DIABETES MELLITUS per A.D.A. criteria. Neutrophils (Bld) [#/Vol] 3.2 10*3/uL 2.0-7.7 [facility] Work Phone: Neutrophils/100 WBC (Bld) 56.8 % 47-70 [facility] Work Phone: [phone] Potassium [Moles/Vol] 4.8 mmol/L 3.5-5.1 [facility] Work Phone: [phone] Protein [Mass/Vol] 6.1 g/dL 6.4-8.2 [facility] Work Phone: [phone] Sodium [Moles/Vol] 140 mmol/L 136-145 [facility] Work Phone: WBC (Bld) [#/Vol] 5.7 10*3/uL 4.4-11.0 [facility] Work Phone: Blood erythrocytes count (nu mber/volume)on 07-29-2021 RBC (Bld) [#/Vol] 3.17 10*6/uL 4.2-5.4 [facility] Work Phone: Blood hemoglobin measurement (mass/volume)on 07-29-2021 Hemoglobin (Bld) [Mass/Vol] 9.8 g/dL 12.0-15.0 [facility] Work Phone: Blood lymphocytes/100 leukoc yteson 07-29-2021 Lymphocytes/100 WBC (Bld) 30.3 % 19-41 [facility] Work Phone: Blood monocytes/100 leukocyt eson 07-29-2021 Monocytes/100 WBC (Bld) 8.1 % 0-10 [facility] Work Phone: Blood platelet mean volumeon 07-29-2021 Platelet mean volume (Bld) [Entitic vol] 9.4 fL 6.2-12.0 [facility] Work Phone: Determination of erythrocyte mean corpuscular volume (MCV)on 07-29-2021 MCV (RBC) [Entitic vol] 97.5 fL 81-99 [facility] Work Phone: Hematocrit Auto (Bld) [Volum e fraction]on 07-29-2021 Hematocrit (Bld) [Volume fraction] 30.9 % 37-47 [facility] Work Phone: Laboratory - Chemistry and C hemistry - challengeon 07-29-2021 ALP [Catalytic activity/Vol] 85 U/L 45-117 [facility] Work Phone: ALT [Catalytic activity/Vol] 30 U/L 13-56 [facility] Work Phone: CO2 [Moles/Vol] 21.0 mmol/L 21.0-32.0 [facility] Work Phone: Globulin (S) [Mass/Vol] 3.2 g/dL 2.2-4.2 [facility] Work Phone: Magnesium [Mass/Vol] 1.7 mg/dL 1.6-2.6 [facility] Work Phone: Urea nitrogen/Creatinine [Mass ratio] 9.9 mg/mg 10-20 [facility] Work Phone: Laboratory - Hematology and Cell countson 07-29-2021 Erythrocyte distribution width (RBC) [Entitic vol] 45.4 fL 35.1-43.9 [facility] Work Phone: Erythrocyte distribution width (RBC) [Ratio] 12.8 % 11.6-14.6 [facility] Work Phone: Immature granulocytes/100 WBC (Bld) 0.400 % 0.0-0.9 [facility] Work Phone: Comment on above: IG% - Immature Granu locytes (promyelocytes, myelocytes and metamyelocytes) > 1% indicates that a LEFT SHIFT is Present. MCH (RBC) [Entitic mass] 30.9 pg 27.0-32.0 [facility] Work Phone: Nucleated RBC/100 WBC (Bld) [Ratio] 0 % 0-5 [facility] Work Phone: MCHC Auto (RBC) [Mass/Vol]on 07-29-2021 MCHC (RBC) [Mass/Vol] 31.7 g/dL 32-36 [facility] Work Phone: No Panel Informationon 07-29 Estimated Creatinine Clearance Calc 15.72 ml/min [facility] Work Phone: Estimated GFR (MDRD) Amer 15 mL/min >60 [facility] Work Phone: Comment on above: GFR Calc Estimated GFR (MDRD) Non-Af Amer 12 mL/min >60 [facility] Work Phone: Comment on above: Non- GFR Calc Platelets bldon 07-29-2021 Platelets (Bld) [#/Vol] 188 10*3/uL 150-450 [facility] Work Phone: Serum or plasma albumin joya urement (mass/volume)on 07-29-2021 Albumin [Mass/Vol] 2.9 g/dL 3.2-5.0 [facility] Work Phone: Serum or plasma albumin/glob ulin mass ratioon 07-29-2021 Albumin/Globulin [Mass ratio] 0.9 {ratio} 0.9-2.4 [facility] Work Phone: Serum or plasma calcium joya urement (mass/volume)on 07-29-2021 Calcium [Mass/Vol] 8.0 mg/dL 8.5-10.1 [facility] Work Phone: Serum or plasma creatinine m easurement (mass/volume)on 07-29-2021 Creatinine [Mass/Vol] 4.03 mg/dL 0.55-1.02 [facility] Work Phone: Comment on above: The validity of the calculated GFR & GFRAA in patients over 70 years has not been determined. Clinical correlation is essential. Serum or plasma urea nitroge n measurement (mass/volume)on 07-29-2021 Urea nitrogen [Mass/Vol] 40 mg/dL 7-18 [facility] Work Phone: Thin prep Papanicolaou smear with manual screeningon 07-29-2021 Thin prep Papanicolaou smear with manual screening 21 U/L 15-37 [facility] Work Phone: Thin prep Papanicolaou smear with manual screening 8 5-15 [facility] Work Phone: CT ABD/PEL WO IVCONon 2021 [facility] No Panel Informationon 10-31 IMPRESSION: Spondylosis of the cervical spine. No right-sided rib fractures identified. No acute cardiopulmonary disease identified. Allergist/Md: PSCKaity Transcribe Date/Time: Oct 31 2020 4:31P Dictated by : PURVI DIAZ MD This examination was interpreted and the report reviewed and electronically signed by: PURVI DIAZ MD on Oct 31 2020 4:33PM [facility] DIVISION OF RADIOLOGY Radiology Study observation (narrative) [facility] No Panel InformationOrdered By: Ccf Provider on 10-31-2020 [facility] XR Cervical spine AP and Lat eral and obliqueon 10-31-2020 * * *Final Report* * * DATE OF EXAM: Oct 31 2020 4:28PM WOX 5311 - XR CERVICAL 4V AP/LAT/OBL / PROCEDURE REASON: Neck pain * * * * Physician Interpretation * * * * Chest, right ribs, cervical spine radiographs HISTORY: 55 years old Clinical information: Neck pain patient states neck pain for many years with no known injury (accession [id number]), Patient staes right lateral rib pain for a couple days with no known injury (accession [id number]) TECHNIQUE: Images: XR CERVICAL 4V AP/LAT/OBL, XR RIB/CHST 3V AP RIB/OBL/CHST R Comparison: None. Cervical spine RESULT: Reversal of the normal cervical spine lordosis. Intervertebral disc space narrowing and endplate osteophyte formation at multiple levels in the cervical spine. No significant neural foraminal stenosis. No fracture. The prevertebral soft tissues are within normal limits. Imaged lung apices are clear. Chest RESULT: No confluent infiltrate, effusion, or pneumothorax identified. Cardiac and mediastinal silhouettes are within normal limits. No right-sided rib fractures are seen. DIVISION OF RADIOLOGY Provider, [facility] - 10/31/2020 * * *Final Report* * * DATE OF EXAM: Oct 31 2020 4:28PM WOX 5311 - XR CERVICAL 4V AP/LAT/OBL / PROCEDURE REASON: Neck pain * * * * Physician Interpretation * * * * Chest, right ribs, cervical spine radiographs HISTORY: 55 years old Clinical information: Neck pain patient states neck pain for many years with no known injury (accession [id number]), Patient staes right lateral rib pain for a couple days with no known injury (accession [id number]) TECHNIQUE: Images: XR CERVICAL 4V AP/LAT/OBL, XR RIB/CHST 3V AP RIB/OBL/CHST R Comparison: None. Cervical spine RESULT: Reversal of the normal cervical spine lordosis. Intervertebral disc space narrowing and endplate osteophyte formation at multiple levels in the cervical spine. No significant neural foraminal stenosis. No fracture. The prevertebral soft tissues are within normal limits. Imaged lung apices are clear. Chest RESULT: No confluent infiltrate, effusion, or pneumothorax identified. Cardiac and mediastinal silhouettes are within normal limits. No right-sided rib fractures are seen. IMPRESSION IMPRESSION: Spondylosis of the cervical spine. No right-sided rib fractures identified. No acute cardiopulmonary disease identified. Allergist/Md: PSCB Transcribe Date/Time: Oct 31 2020 4:31P Dictated by : PURVI DIAZ MD This examination was interpreted and the report reviewed and electronically signed by: PURVI DIAZ MD on Oct 31 2020 4:33PM [facility] XR Ribs - right Views and [facility] PAon 10-31-2020 * * *Final Report* * * DATE OF EXAM: Oct 31 2020 4:27PM WOX 5244 - XR RIB/CHST 3V AP RIB/OBL/CHST R / PROCEDURE REASON: Rib pain on right side * * * * Physician Interpretation * * * * Chest, right ribs, cervical spine radiographs HISTORY: 55 years old Clinical information: Neck pain patient states neck pain for many years with no known injury (accession [id number]), Patient staes right lateral rib pain for a couple days with no known injury (accession [id number]) TECHNIQUE: Images: XR CERVICAL 4V AP/LAT/OBL, XR RIB/CHST 3V AP RIB/OBL/CHST R Comparison: None. Cervical spine RESULT: Reversal of the normal cervical spine lordosis. Intervertebral disc space narrowing and endplate osteophyte formation at multiple levels in the cervical spine. No significant neural foraminal stenosis. No fracture. The prevertebral soft tissues are within normal limits. Imaged lung apices are clear. Chest RESULT: No confluent infiltrate, effusion, or pneumothorax identified. Cardiac and mediastinal silhouettes are within normal limits. No right-sided rib fractures are seen. DIVISION OF RADIOLOGY Provider, [facility] - 10/31/2020 * * *Final Report* * * DATE OF EXAM: Oct 31 2020 4:27PM WOX 5244 - XR RIB/CHST 3V AP RIB/OBL/CHST R / PROCEDURE REASON: Rib pain on right side * * * * Physician Interpretation * * * * Chest, right ribs, cervical spine radiographs HISTORY: 55 years old Clinical information: Neck pain patient states neck pain for many years with no known injury (accession [id number]), Patient staes right lateral rib pain for a couple days with no known injury (accession [id number]) TECHNIQUE: Images: XR CERVICAL 4V AP/LAT/OBL, XR RIB/CHST 3V AP RIB/OBL/CHST R Comparison: None. Cervical spine RESULT: Reversal of the normal cervical spine lordosis. Intervertebral disc space narrowing and endplate osteophyte formation at multiple levels in the cervical spine. No significant neural foraminal stenosis. No fracture. The prevertebral soft tissues are within normal limits. Imaged lung apices are clear. Chest RESULT: No confluent infiltrate, effusion, or pneumothorax identified. Cardiac and mediastinal silhouettes are within normal limits. No right-sided rib fractures are seen. IMPRESSION IMPRESSION: Spondylosis of the cervical spine. No right-sided rib fractures identified. No acute cardiopulmonary disease identified. Allergist/Md: SHAMAR Transcribe Date/Time: Oct 31 2020 4:31P Dictated by : PURVI DIAZ MD This examination was interpreted and the report reviewed and electronically signed by: PURVI DIAZ MD on Oct 31 2020 4:33PM [facility] CT HEAD OR BRAIN W/O CONTRAS Ton 07-23-2017 CT HEAD OR BRAIN W/O CONTRAST ORIGINALCT HEAD OR BRAIN W/O CONTRAST CLINICAL STATEMENT: pain; trauma patient. TECHNIQUE: Axial CT images from skull base to vertex without IV contrast. This exam was performed according to our departmental dose optimization program, and includes the following measures where applicable: automated exposure control, adjustment of the mAs and/or kVp according to patient size and/or exam, and an iterative reconstruction algorithm. COMPARISON: None. FINDINGS: There is no intracranial hemorrhage, mass, mass effect or abnormal extra-axial fluid collection. No evidence of an acute territorial infarct is identified. The ventricles are normal. The skull base and calvarium demonstrate no abnormality. The included paranasal sinuses and mastoid air cells are clear. IMPRESSION: Normal noncontrast head CT. Interpreted By: Marco Poole MDPreliminary Report By: Marco Poole MDElectronically Signed By: Marco Poole MD Dictated Date: 07/23/2017 12:33:50 AM Prelim Date: 07/23/2017 12:33:50 AM Sign Date: 07/23/2017 12:34:39 AM Normal [facility] ([place]) CT MAXILLOFACIAL W/O CONTRAS Ton 07-23-2017 CT MAXILLOFACIAL W/O CONTRAST ORIGINALCT MAXILLOFACIAL W/O CONTRAST CLINICAL STATEMENT: pain; trauma patient. TECHNIQUE: Multiple-row detector helical CT examination of the facial bones without IV contrast. Axial, sagittal, and coronal reconstructed images. This exam was performed according to our departmental dose optimization program, and includes the following measures where applicable: automated exposure control, adjustment of the mAs and/or kVp according to patient size and/or exam, and an iterative reconstruction algorithm. COMPARISON: CT scan of the head on July 23, 2017. FINDINGS: The facial bones including the mandible demonstrate no fracture or dislocation, and no evidence of aggressive osseous lesions. No nasal fracture is detected. The globes demonstrate no acute traumatic abnormality. The extraocular muscles, intraconal fat, and extraconal fat are within normal limits. No lesion of the visualized skull base or calvarium is present. The tympanomastoid cavities are unopacified. There are no air-fluid levels in the paranasal sinuses. A 2 cm retention cyst is present in the right maxillary sinus. IMPRESSION: No maxillofacial fracture or intraorbital hematoma. Interpreted By: Marco Poole MDPreliminary Report By: Marco Poole MDElectronically Signed By: Marco Poole MD Dictated Date: 07/23/2017 12:39:35 AM Prelim Date: 07/23/2017 12:39:35 AM Sign Date: 07/23/2017 12:42:04 AM Normal [facility] (OR) CT SPINE CERVICAL W/O CONTRA STon 07-23-2017 CT SPINE CERVICAL W/O CONTRAST ORIGINALCT SPINE CERVICAL W/O CONTRAST CLINICAL STATEMENT: pain; trauma patient. TECHNIQUE: Multiple-row detector helical CT examination of the cervical spine without IV contrast. Axial, sagittal, and coronal reconstructed images. This exam was performed according to our departmental dose optimization program, and includes the following measures where applicable: automated exposure control, adjustment of the mAs and/or kVp according to patient size and/or exam, and an iterative reconstruction algorithm. COMPARISON: None. FINDINGS: No fracture or traumatic malalignment. Vertebral body heights are maintained. No aggressive osseous lesions are identified. There is moderate degenerative disc disease at the C4-C5 level with minimal degenerative retrolisthesis of C4 on C5. The prevertebral and paraspinal soft tissues demonstrate no acute abnormality. IMPRESSION: No acute fracture or traumatic malalignment. Interpreted By: Marco Poole MDPreliminary Report By: Marco Poole MDElectronically Signed By: Marco Poole MD Dictated Date: 07/23/2017 12:42:27 AM Prelim Date: 07/23/2017 12:42:27 AM Sign Date: 07/23/2017 12:43:50 AM Normal [facility] ([place]) [place] [facility] Note on 07-23-2017 [place] [facility] Note Normal [facility] ([place]) Pat Eduon 07-23-2017 Pat Edu Normal [facility] ([place]) Patient Summary Documentson 07-23-2017 Patient Summary Documents Normal [facility] ([place]) XR KNEE THREE VIEWS LEFTon 0 07-23-2017 XR KNEE THREE VIEWS LEFT ORIGINALXR KNEE THREE VIEWS LEFT CLINICAL STATEMENT: injury. COMPARISON: Right knee x-ray on July 23, 2017 FINDINGS: No acute fracture or dislocation is identified. No joint effusion is seen. There is moderate arthritis involving the tibiofemoral and patellofemoral joints with joint space narrowing and marginal osteophytic spur formation. There is no radiopaque foreign body. IMPRESSION: No acute fracture or dislocation. Moderate tricompartmental arthritis. Interpreted By: Marco Poole MDPreliminary Report By: Marco Poole MDElectronically Signed By: Marco Poole MD Dictated Date: 07/23/2017 12:32:33 AM Prelim Date: 07/23/2017 12:32:33 AM Sign Date: 07/23/2017 12:33:28 AM Normal [facility] ([place]) XR KNEE THREE VIEWS RIGHTon 07-23-2017 XR KNEE THREE VIEWS RIGHT ORIGINALXR KNEE THREE VIEWS RIGHT CLINICAL STATEMENT: injury. COMPARISON: Left knee x-ray on July 23, 2017 FINDINGS: No acute fracture or dislocation is identified. A moderate-sized suprapatellar joint effusion is seen. The medial tibiofemoral joint space is mildly narrowed and there is mild marginal osteophytic spur formation. There is no radiopaque foreign body. IMPRESSION: No acute fracture or dislocation. Mild tibiofemoral arthritis. Moderate-sized joint effusion. Interpreted By: Marco Poole MDPreliminary Report By: Marco Poole MDElectronically Signed By: Marco Poole MD Dictated Date: 07/23/2017 12:30:42 AM Prelim Date: 07/23/2017 12:30:42 AM Sign Date: 07/23/2017 12:32:09 AM Normal [facility] ([place]) Vital Signs Date Time Vital Sign Value Performing Clinician Facility 09-12-2024 13:20-0400 Diastolic blood pressure 60 mm[Hg] Liz Ferreira MD Work Phone: [facility] 09-12-2024 13:20-0400 Heart rate 77 /min Liz Ferreira MD Work Phone: [facility] 09-12-2024 13:20-0400 Respiratory rate 18 /min Liz Ferreira MD Work Phone: [facility] 09-12-2024 13:20-0400 SaO2% (BldA) [Mass fraction] 100 % Liz Ferreira MD Work Phone: [facility] 09-12-2024 13:20-0400 Systolic blood pressure 102 mm[Hg] Liz Ferreira MD Work Phone: [facility] 09-06-2024 23:25-0400 Body temperature 97.8 [degF] Dr. Ignacio Cheatham MD Work Phone: 4(980)869-286640 [place] [address] 09-06-2024 23:25-0400 Diastolic blood pressure 80 mm[Hg] Dr. Ignacio Cheatham MD Work Phone: 0(183)087-391340 [place] [address] 09-06-2024 23:25-0400 Heart rate 102 /min Dr. Ignacio Cheatham MD Work Phone: 3(004)507-094040 [place] [address] 09-06-2024 23:25-0400 Respiratory rate 16 /min Dr. Ignacio Cheatham MD Work Phone: 5(244)152-808740 [place] [address] 09-06-2024 23:25-0400 SaO2% (BldA) [Mass fraction] 95 % Dr. Ignacio Cheatham MD Work Phone: 8(466)116-411224 [place] [address] 09-06-2024 23:25-0400 Systolic blood pressure 162 mm[Hg] Dr. Ignacio Cheatham MD Work Phone: 3(616)403-232024 [place] [address] 09-06-2024 18:39-0400 Body height 172.[address] Ignacio Cheatham MD Work Phone: 3(322)425-651040 [place] [address] 09-06-2024 18:39-0400 Body mass index (BMI) [Ratio] 29.2 kg/m2 Dr. Ignacio Cheatham MD Work Phone: 4(828)408-966740 [place] [address] 09-06-2024 18:39-0400 Body weight 87.[address] Ignacio Cheatham MD Work Phone: 5(053)337-647040 [place] [address] 08-10-2024 13:25-0400 Body mass index (BMI) [Ratio] 28.49 kg/m2 Hever Praisler-Wood CUSTOMS ENTRY CLERK.BENEFITS ADMINISTRATOR Work Phone: [facility] 08-10-2024 13:25-0400 Body temperature 98.01 [degF] Hever Praisler-Wood CUSTOMS ENTRY CLERK.BENEFITS ADMINISTRATOR Work Phone: [facility] 08-10-2024 13:25-0400 Body weight 85 kg Hever Praisler-Wood CUSTOMS ENTRY CLERK.BENEFITS ADMINISTRATOR Work Phone: [facility] 08-10-2024 13:25-0400 Diastolic blood pressure 80 mm[Hg] Hever Praisler-Wood CUSTOMS ENTRY CLERK.BENEFITS ADMINISTRATOR Work Phone: [facility] 08-10-2024 13:25-0400 Heart rate 100 /min Hever Praisler-Wood CUSTOMS ENTRY CLERK.BENEFITS ADMINISTRATOR Work Phone: [facility] 08-10-2024 13:25-0400 Respiratory rate 20 /min Hever Praisler-Wood CUSTOMS ENTRY CLERK.BENEFITS ADMINISTRATOR Work Phone: [facility] 08-10-2024 13:25-0400 SaO2% (BldA) [Mass fraction] 97 % Hever Praisler-Wood CUSTOMS ENTRY CLERK.BENEFITS ADMINISTRATOR Work Phone: [facility] 08-10-2024 13:25-0400 Systolic blood pressure 158 mm[Hg] Hever Praisler-Wood CUSTOMS ENTRY CLERK.BENEFITS ADMINISTRATOR Work Phone: [facility] 07-06-2024 13:32-0400 Body mass index (BMI) [Ratio] 27.99 kg/m2 Trinidad Cioce CUSTOMS ENTRY CLERK.BENEFITS ADMINISTRATOR Work Phone: [facility] 07-06-2024 13:32-0400 Body temperature 98.29 [degF] Trinidad Cioce CUSTOMS ENTRY CLERK.BENEFITS ADMINISTRATOR Work Phone: [facility] 07-06-2024 13:32-0400 Body weight 83.5 kg Trinidad Cioce CUSTOMS ENTRY CLERK.BENEFITS ADMINISTRATOR Work Phone: [facility] 07-06-2024 13:32-0400 Diastolic blood pressure 84 mm[Hg] Trinidad Cioce CUSTOMS ENTRY CLERK.BENEFITS ADMINISTRATOR Work Phone: [facility] 07-06-2024 13:32-0400 Heart rate 95 /min Trinidad Cioce CUSTOMS ENTRY CLERK.BENEFITS ADMINISTRATOR Work Phone: [facility] 07-06-2024 13:32-0400 Respiratory rate 14 /min Trinidad Cioce CUSTOMS ENTRY CLERK.BENEFITS ADMINISTRATOR Work Phone: [facility] 07-06-2024 13:32-0400 SaO2% (BldA) [Mass fraction] 98 % Trinidad Cioce CUSTOMS ENTRY CLERK.BENEFITS ADMINISTRATOR Work Phone: [facility] 07-06-2024 13:32-0400 Systolic blood pressure 160 mm[Hg] Trinidad Cioce CUSTOMS ENTRY CLERK.BENEFITS ADMINISTRATOR Work Phone: [facility] 07-04-2024 14:16-0400 Body height 172.7 cm Alondra Juliet CUSTOMS ENTRY CLERK.BENEFITS ADMINISTRATOR Work Phone: [facility] 07-04-2024 14:16-0400 Body mass index (BMI) [Ratio] 27.96 kg/m2 Alondra Juliet CUSTOMS ENTRY CLERK.BENEFITS ADMINISTRATOR Work Phone: [facility] 07-04-2024 14:16-0400 Body weight 83.4 kg Alondra Juliet CUSTOMS ENTRY CLERK.BENEFITS ADMINISTRATOR Work Phone: [facility] 07-04-2024 14:16-0400 Diastolic blood pressure 94 mm[Hg] Alondra Juliet CUSTOMS ENTRY CLERK.BENEFITS ADMINISTRATOR Work Phone: [facility] 07-04-2024 14:16-0400 Heart rate 107 /min Alondra Juliet CUSTOMS ENTRY CLERK.BENEFITS ADMINISTRATOR Work Phone: [facility] 07-04-2024 14:16-0400 Respiratory rate 16 /min Alondra Juliet CUSTOMS ENTRY CLERK.BENEFITS ADMINISTRATOR Work Phone: [facility] 07-04-2024 14:16-0400 SaO2% (BldA) [Mass fraction] 97 % Alondra Juliet CUSTOMS ENTRY CLERK.BENEFITS ADMINISTRATOR Work Phone: [facility] 07-04-2024 14:16-0400 Systolic blood pressure 187 mm[Hg] Alondra Juliet CUSTOMS ENTRY CLERK.BENEFITS ADMINISTRATOR Work Phone: [facility] 06-01-2024 16:55-0400 Body mass index (BMI) [Ratio] 28.34 kg/m2 Tresa Marcum CUSTOMS ENTRY CLERK.BENEFITS ADMINISTRATOR Work Phone: [facility] 06-01-2024 16:55-0400 Body weight 84.55 kg Tresa Marcum CUSTOMS ENTRY CLERK.BENEFITS ADMINISTRATOR Work Phone: [facility] 06-01-2024 13:35-0400 Diastolic blood pressure 92 mm[Hg] Tresa Marcum CUSTOMS ENTRY CLERK.BENEFITS ADMINISTRATOR Work Phone: [facility] 06-01-2024 13:35-0400 Heart rate 95 /min Tresa Marcum CUSTOMS ENTRY CLERK.BENEFITS ADMINISTRATOR Work Phone: [facility] 06-01-2024 13:35-0400 Respiratory rate 16 /min Tresa Marcum CUSTOMS ENTRY CLERK.BENEFITS ADMINISTRATOR Work Phone: [facility] 06-01-2024 13:35-0400 SaO2% (BldA) [Mass fraction] 98 % Tresa Marcum CUSTOMS ENTRY CLERK.BENEFITS ADMINISTRATOR Work Phone: [facility] 06-01-2024 13:35-0400 Systolic blood pressure 184 mm[Hg] Tresa Marcum CUSTOMS ENTRY CLERK.BENEFITS ADMINISTRATOR Work Phone: [facility] 04-15-2024 12:29-0500 Body mass index (BMI) [Ratio] 29.16 kg/m2 Sha Ray CUSTOMS ENTRY CLERK.BENEFITS ADMINISTRATOR Work Phone: [facility] 04-15-2024 12:29-0500 Body temperature 98.01 [degF] Sha Ray CUSTOMS ENTRY CLERK.BENEFITS ADMINISTRATOR Work Phone: [facility] 04-15-2024 12:29-0500 Body weight 87 kg Sha Ray CUSTOMS ENTRY CLERK.BENEFITS ADMINISTRATOR Work Phone: [facility] 04-15-2024 12:29-0500 Diastolic blood pressure 80 mm[Hg] Sha Pendlebury CUSTOMS ENTRY CLERK.BENEFITS ADMINISTRATOR Work Phone: [facility] Comment on above: checked BP x 2 04-15-2024 12:29-0500 Heart rate 96 /min Sha Pendlebury CUSTOMS ENTRY CLERK.BENEFITS ADMINISTRATOR Work Phone: [facility] 04-15-2024 12:29-0500 Respiratory rate 20 /min Sha Pendlebury CUSTOMS ENTRY CLERK.BENEFITS ADMINISTRATOR Work Phone: [facility] 04-15-2024 12:29-0500 SaO2% (BldA) [Mass fraction] 99 % [facility] CUSTOMS ENTRY CLERK.BENEFITS ADMINISTRATOR Work Phone: [facility] 04-15-2024 12:29-0500 Systolic blood pressure 173 mm[Hg] Sha Pendlebury CUSTOMS ENTRY CLERK.BENEFITS ADMINISTRATOR Work Phone: [facility] Comment on above: checked BP x 2 03-25-2024 10:56-0500 Body height 172.7 cm Ignacio Cheatham MD Work Phone: [facility] 03-25-2024 10:56-0500 Body mass index (BMI) [Ratio] 28.79 kg/m2 Ignacio Cheatham MD Work Phone: [facility] 03-25-2024 10:56-0500 Body weight 85.9 kg Ignacio Cheatham MD Work Phone: [facility] 03-25-2024 10:56-0500 Diastolic blood pressure 84 mm[Hg] Ignacio Cheatham MD Work Phone: [facility] 03-25-2024 10:56-0500 Heart rate 96 /min Ignacio Cheatham MD Work Phone: [facility] 03-25-2024 10:56-0500 SaO2% (BldA) [Mass fraction] 97 % Ignacio Cheatham MD Work Phone: [facility] 03-25-2024 10:56-0500 Systolic blood pressure 186 mm[Hg] Ignacio Cheatham MD Work Phone: [facility] 02-09-2024 11:15-0500 Diastolic blood pressure 84 mm[Hg] Saira Jackson DO Work Phone: [facility] Comment on above: pt said it is time to take bp meds 02-09-2024 11:15-0500 Heart rate 98 /min Saira Jackson DO Work Phone: [facility] 02-09-2024 11:15-0500 SaO2% (BldA) [Mass fraction] 99 % Saira Jackson DO Work Phone: [facility] 02-09-2024 11:15-0500 Systolic blood pressure 172 mm[Hg] Saira Jackson DO Work Phone: [facility] Comment on above: pt said it is time to take bp meds 12-25-2023 09:47-0400 Body mass index (BMI) [Ratio] 28.22 kg/m2 Ignacio Cheatham MD Work Phone: [facility] 12-25-2023 09:47-0400 Body weight 84.19 kg Ignacio Cheatham MD Work Phone: [facility] 12-25-2023 09:47-0400 Diastolic blood pressure 58 mm[Hg] Ignacio Cheathma MD Work Phone: [facility] 12-25-2023 09:47-0400 Heart rate 113 /min Ignacio Cheatham MD Work Phone: [facility] 12-25-2023 09:47-0400 SaO2% (BldA) [Mass fraction] 99 % Ignacio Cheatham MD Work Phone: [facility] 12-25-2023 09:47-0400 Systolic blood pressure 118 mm[Hg] Ignacio Cheatham MD Work Phone: [facility] 12-21-2023 14:49-0400 Body height 172.7 cm Dorene Murillo MD Work Phone: [facility] 12-21-2023 14:49-0400 Body mass index (BMI) [Ratio] 28.74 kg/m2 Dorene Murillo MD Work Phone: [facility] 12-21-2023 14:49-0400 Body weight 85.73 kg Dorene Murillo MD Work Phone: [facility] 12-21-2023 14:49-0400 Respiratory rate 16 /min Dorene Murillo MD Work Phone: [facility] 12-11-2023 11:17-0400 Body mass index (BMI) [Ratio] 28.79 kg/m2 Tresa Haagen CUSTOMS ENTRY CLERK.BENEFITS ADMINISTRATOR Work Phone: [facility] 12-11-2023 11:17-0400 Body weight 85.9 kg Tresa Haagen CUSTOMS ENTRY CLERK.BENEFITS ADMINISTRATOR Work Phone: [facility] 12-11-2023 11:17-0400 Diastolic blood pressure 72 mm[Hg] Tresa Haagen CUSTOMS ENTRY CLERK.BENEFITS ADMINISTRATOR Work Phone: [facility] 12-11-2023 11:17-0400 Heart rate 102 /min Tresa Haagen CUSTOMS ENTRY CLERK.BENEFITS ADMINISTRATOR Work Phone: [facility] 12-11-2023 11:17-0400 Respiratory rate 16 /min Tresa Haagen CUSTOMS ENTRY CLERK.BENEFITS ADMINISTRATOR Work Phone: [facility] 12-11-2023 11:17-0400 SaO2% (BldA) [Mass fraction] 98 % Tresa Haagen CUSTOMS ENTRY CLERK.BENEFITS ADMINISTRATOR Work Phone: [facility] 12-11-2023 11:17-0400 Systolic blood pressure 130 mm[Hg] Tresa Haagen CUSTOMS ENTRY CLERK.BENEFITS ADMINISTRATOR Work Phone: [facility] 09-14-2023 09:30-0400 Body height 172.7 cm Dorene Murillo MD Work Phone: [facility] 09-14-2023 09:30-0400 Body mass index (BMI) [Ratio] 29.5 kg/m2 Dorene Murillo MD Work Phone: [facility] 09-14-2023 09:30-0400 Body weight 88 kg Dorene Murillo MD Work Phone: [facility] 09-14-2023 09:30-0400 Respiratory rate 18 /min Dorene Murillo MD Work Phone: [facility] 08-17-2023 11:28-0400 Body height 172.7 cm Dorene Murillo MD Work Phone: [facility] 08-17-2023 11:28-0400 Body mass index (BMI) [Ratio] 29.5 kg/m2 Dorene Murillo MD Work Phone: [facility] 08-17-2023 11:28-0400 Body weight 88 kg Dorene Murillo MD Work Phone: [facility] 08-17-2023 11:28-0400 Respiratory rate 18 /min Dorene Murillo MD Work Phone: [facility] 07-06-2023 11:58-0400 Body height 170.2 cm Dorene Murillo MD Work Phone: [facility] 07-06-2023 11:58-0400 Body mass index (BMI) [Ratio] 31.17 kg/m2 Dorene Murillo MD Work Phone: [facility] 07-06-2023 11:58-0400 Body weight 90.27 kg Dorene Murillo MD Work Phone: [facility] 07-06-2023 11:58-0400 Respiratory rate 20 /min Dorene Murillo MD Work Phone: [facility] 07-02-2023 15:21-0400 Body temperature 98.1 [degF] [facility] 07-02-2023 15:21-0400 Diastolic blood pressure 56 mm[Hg] [facility] 07-02-2023 15:21-0400 Heart rate 91 /min [facility] 07-02-2023 15:21-0400 Respiratory rate 16 /min [facility] 07-02-2023 15:21-0400 SaO2% (BldA) [Mass fraction] 99 % [facility] 07-02-2023 15:21-0400 Systolic blood pressure 135 mm[Hg] [facility] 07-02-2023 09:190400 Body height 172.72 cm [facility] 07-02-2023 09:19-0400 Body mass index (BMI) [Ratio] 30.5 kg/m2 [facility] 07-02-2023 09:19-0400 Body weight 91.12 kg [facility] 06-30-2023 02:17-0400 Body temperature 97.3 [degF] [facility] 06-30-2023 02:17-0400 Diastolic blood pressure 73 mm[Hg] [facility] 06-30-2023 02:17-0400 Heart rate 80 /min [facility] 06-30-2023 02:17-0400 Respiratory rate 18 /min [facility] 06-30-2023 02:17-0400 SaO2% (BldA) [Mass fraction] 96 % [facility] 06-30-2023 02:17-0400 Systolic blood pressure 140 mm[Hg] [facility] 06-29-2023 19:40-0400 Body height 172.72 cm [facility] 06-29-2023 19:40-0400 Body mass index (BMI) [Ratio] 32.7 kg/m2 [facility] 06-29-2023 19:40-0400 Body weight 97.6 kg [facility] 06-09-2023 11:54-0400 Body temperature 98.6 [degF] [facility] 06-09-2023 11:54-0400 Diastolic blood pressure 64 mm[Hg] [facility] 06-09-2023 11:54-0400 Heart rate 93 /min [facility] 06-09-2023 11:54-0400 Respiratory rate 18 /min [facility] 06-09-2023 11:54-0400 SaO2% (BldA) [Mass fraction] 99 % [facility] 06-09-2023 11:54-0400 Systolic blood pressure 153 mm[Hg] [facility] 06-09-2023 07:24-0400 Body mass index (BMI) [Ratio] 32.6 kg/m2 [facility] 06-09-2023 07:24-0400 Body weight 97.4 kg [facility] 06-04-2023 10:08-0400 Body height 172.72 cm [facility] 06-04-2023 10:08-0400 Body temperature 98 [degF] [facility] 06-04-2023 10:08-0400 Diastolic blood pressure 68 mm[Hg] [facility] 06-04-2023 10:08-0400 Heart rate 94 /min [facility] 06-04-2023 10:08-0400 Respiratory rate 14 /min [facility] 06-04-2023 10:08-0400 SaO2% (BldA) [Mass fraction] 98 % [facility] 06-04-2023 10:08-0400 Systolic blood pressure 159 mm[Hg] [facility] 03-09-2023 09:37-0500 SaO2% (BldA) [Mass fraction] 100 % Dr. Ignacio Cheatham Work Phone: [facility] 03-09-2023 09:34-0500 Body height 172.[address] Ignacio Cheatham Work Phone: [facility] 03-09-2023 09:34-0500 Body mass index (BMI) [Ratio] 34.9 kg/m2 Dr. Ignacio Cheatham Work Phone: [facility] 03-09-2023 09:34-0500 Body temperature 97.9 [degF] Dr. Ignacio Cheatham Work Phone: [facility] 03-09-2023 09:34-0500 Body weight 104.[address] Ignacio Cheatham Work Phone: [facility] 03-09-2023 09:34-0500 Diastolic blood pressure 78 mm[Hg] Dr. Ignacio Cheatham Work Phone: [facility] 03-09-2023 09:34-0500 Heart rate 102 /min Dr. Ignacio Cheatham Work Phone: [facility] 03-09-2023 09:34-0500 Respiratory rate 20 /min Dr. Ignacio Cheatham Work Phone: [facility] 03-09-2023 09:34-0500 Systolic blood pressure 172 mm[Hg] Dr. Ignacio Cheatham Work Phone: 1(999)690-450624 [place] [address] 02-04-2023 12:12-0500 Respiratory rate 14 /min Dr. Ignacio Cheatham Work Phone: 4(002)358-309240 [place] [address] 02-04-2023 09:49-0500 Body height 172.[address] Ignacio Cheatham Work Phone: 9(523)320-576940 [place] [address] 02-04-2023 09:49-0500 Body mass index (BMI) [Ratio] 31.6 kg/m2 Dr. Ignacio Cheatham Work Phone: 7(398)899-107440 [place] [address] 02-04-2023 09:49-0500 Body temperature 97.2 [degF] Dr. Ignacio Cheatham Work Phone: 9(196)975-909840 [place] [address] 02-04-2023 09:49-0500 Body weight [address] Ignacio Cheatham Work Phone: 1(845)389-201640 [place] [address] 02-04-2023 09:49-0500 Diastolic blood pressure 49 mm[Hg] Dr. Ignacio Cheatham Work Phone: 7(893)039-675540 [place] [address] 02-04-2023 09:49-0500 Heart rate 97 /min Dr. Ignacio Cheatham Work Phone: 8(982)703-357640 [place] [address] 02-04-2023 09:49-0500 SaO2% (BldA) [Mass fraction] 90 % Dr. Ignacio Cheatham Work Phone: 8(674)238-179940 [place] [address] 02-04-2023 09:49-0500 Systolic blood pressure 114 mm[Hg] Dr. Ignacio Cheatham Work Phone: 1(222)136-747140 [place] [address] 01-29-2023 13:33-0500 Body temperature 96.7 [degF] Dr. Ignacio Cheatham Work Phone: 1(291)749-434440 [place] [address] 01-29-2023 13:33-0500 Diastolic blood pressure 66 mm[Hg] Dr. Ignacio Cheatham Work Phone: 6(879)265-797740 [place] [address] 01-29-2023 13:33-0500 Heart rate 90 /min Dr. Ignacio Cheatham Work Phone: 5(685)252-906340 [place] [address] 01-29-2023 13:33-0500 Respiratory rate 16 /min Dr. Ignacoi Cheatham Work Phone: 5(417)829-245340 [place] [address] 01-29-2023 13:33-0500 SaO2% (BldA) [Mass fraction] 99 % Dr. Ignacio Cheatham Work Phone: 1(226)824-040040 [place] [address] 01-29-2023 13:33-0500 Systolic blood pressure 157 mm[Hg] Dr. Ignacio Cheatham Work Phone: 6(776)077-014240 [place] [address] 01-29-2023 12:10-0500 Body mass index (BMI) [Ratio] 33.7 kg/m2 Dr. Ignacio Cheatham Work Phone: 9(439)384-055840 [place] [address] 01-29-2023 12:10-0500 Body weight 100.[address] Ignacio Cheatham Work Phone: 4(639)210-573540 [place] [address] 01-26-2023 08:52-0500 Inhaled oxygen flow rate 2 L/min Dr. Ignacio Cheatham Work Phone: 7(464)118-095040 [place] [address] 01-25-2023 12:56-0500 Body height 172.[address] Ignacio Cheatham Work Phone: 8(435)998-383740 [place] [address] 01-19-2023 16:14-0500 Diastolic blood pressure 71 mm[Hg] Dr. Ignacio Cheatham Work Phone: 5(419)472-180640 [place] [address] 01-19-2023 16:14-0500 Heart rate 87 /min Dr. Ignacio Cheatham Work Phone: 1(654)115-667540 [place] [address] 01-19-2023 16:14-0500 Respiratory rate 17 /min Dr. Ignacio Cheatham Work Phone: 1(028)865-704740 [place] [address] 01-19-2023 16:14-0500 SaO2% (BldA) [Mass fraction] 98 % Dr. Ignacio Cheatham Work Phone: 0(397)133-196140 [place] [address] 01-19-2023 16:14-0500 Systolic blood pressure 167 mm[Hg] Dr. Ignacio Cheatham Work Phone: 8(367)130-139840 [place] [address] 01-19-2023 07:13-0500 Body height 172.[address] Ignacio Cheatham Work Phone: 9(858)215-514540 [place] [address] 01-19-2023 07:13-0500 Body mass index (BMI) [Ratio] 36.6 kg/m2 Dr. Ignacio Cheatham Work Phone: 4(418)443-333640 [place] [address] 01-19-2023 07:13-0500 Body temperature 97.7 [degF] Dr. Ignacio Cheatham Work Phone: 1(831)627-255240 [place] [address] 01-19-2023 07:13-0500 Body weight 109.[address] Ignacio Cheatham Work Phone: 3(808)507-316940 [place] [address] 01-15-2023 16:58-0500 Heart rate 67 /min Dr. Ignacio Cheatham Work Phone: 9(908)456-889340 [place] [address] 01-15-2023 16:58-0500 Respiratory rate 15 /min Dr. Ignacio Cheatham Work Phone: 4(118)438-770340 [place] [address] 01-15-2023 16:58-0500 SaO2% (BldA) [Mass fraction] 97 % Dr. Ignacio Cheatham Work Phone: 4(052)636-585140 [place] [address] 01-15-2023 11:39-0500 Body height 172.[address] Ignacio Cheatham Work Phone: 0(495)016-303440 [place] [address] 01-15-2023 11:39-0500 Body mass index (BMI) [Ratio] 31.6 kg/m2 Dr. Ignacio Cheatham Work Phone: 9(846)491-004640 [place] [address] 01-15-2023 11:39-0500 Body temperature 97.4 [degF] Dr. Ignacio Cheatham Work Phone: 3(355)595-222140 [place] [address] 01-15-2023 11:39-0500 Body weight 94.[address] Ignacio Cheatham Work Phone: 1(752)261-291140 [place] [address] 01-15-2023 11:39-0500 Diastolic blood pressure 65 mm[Hg] Dr. Ignacio Cheatham Work Phone: 7(898)157-363740 [place] [address] 01-15-2023 11:39-0500 Systolic blood pressure 137 mm[Hg] Dr. Ignacio Cheatham Work Phone: 5(519)349-664040 [place] [address] 01-13-2023 14:29-0500 Diastolic blood pressure 79 mm[Hg] Dr. Ignacio Cheatham Work Phone: 1(455)208-280740 [place] [address] 01-13-2023 14:29-0500 Heart rate 68 /min Dr. Ignacio Cheatham Work Phone: 1(421)434-568440 [place] [address] 01-13-2023 14:29-0500 Respiratory rate 15 /min Dr. Ignacio Cheatham Work Phone: 0(117)359-002340 [place] [address] 01-13-2023 14:29-0500 SaO2% (BldA) [Mass fraction] 97 % Dr. Ignacio Cheatham Work Phone: 4(224)437-626940 [place] [address] 01-13-2023 14:29-0500 Systolic blood pressure 122 mm[Hg] Dr. Ignacio Cheatham Work Phone: 1(286)630-924440 [place] [address] 01-13-2023 12:34-0500 Body mass index (BMI) [Ratio] 32.1 kg/m2 Dr. Ignacio Cheatham Work Phone: 9(393)156-171540 [place] [address] 01-13-2023 12:34-0500 Body weight 96.[address] Ignacio Cheatham Work Phone: 7(316)286-704140 [place] [address] 01-13-2023 12:03-0500 Body height 172.[address] Ignacio Cheatham Work Phone: 4(121)742-899740 [place] [address] 01-13-2023 12:03-0500 Body temperature 96.7 [degF] Dr. Ignacio Cheatham Work Phone: 1(502)090-526440 [place] [address] 11-19-2022 11:29-0400 Body temperature 98.01 [degF] Kimberli Saleem CUSTOMS ENTRY CLERK.BENEFITS ADMINISTRATOR Work Phone: [facility] 11-19-2022 11:29-0400 Body weight 98.61 kg Kimberli Saleem CUSTOMS ENTRY CLERK.BENEFITS ADMINISTRATOR Work Phone: [facility] 11-19-2022 11:29-0400 Diastolic blood pressure 80 mm[Hg] Kimberli Saleem CUSTOMS ENTRY CLERK.BENEFITS ADMINISTRATOR Work Phone: [facility] 11-19-2022 11:29-0400 Heart rate 111 /min Kimberli Saleem CUSTOMS ENTRY CLERK.BENEFITS ADMINISTRATOR Work Phone: [facility] 11-19-2022 11:29-0400 Respiratory rate 18 /min Kimberli Saleem CUSTOMS ENTRY CLERK.BENEFITS ADMINISTRATOR Work Phone: [facility] 11-19-2022 11:29-0400 SaO2% (BldA) [Mass fraction] 97 % Kimberli Saleem CUSTOMS ENTRY CLERK.BENEFITS ADMINISTRATOR Work Phone: [facility] 11-19-2022 11:29-0400 Systolic blood pressure 146 mm[Hg] Kimberli Saleem CUSTOMS ENTRY CLERK.BENEFITS ADMINISTRATOR Work Phone: [facility] 11-07-2022 12:36-0400 Body weight 99.61 kg Brooke Podlogar CUSTOMS ENTRY CLERK.BENEFITS ADMINISTRATOR Work Phone: [facility] 11-07-2022 12:36-0400 Diastolic blood pressure 60 mm[Hg] Brooke Podlogar CUSTOMS ENTRY CLERK.BENEFITS ADMINISTRATOR Work Phone: [facility] 11-07-2022 12:36-0400 Heart rate 91 /min Brooke Podlogar CUSTOMS ENTRY CLERK.BENEFITS ADMINISTRATOR Work Phone: [facility] 11-07-2022 12:36-0400 Respiratory rate 16 /min Brooke Podlogar CUSTOMS ENTRY CLERK.BENEFITS ADMINISTRATOR Work Phone: [facility] 11-07-2022 12:36-0400 SaO2% (BldA) [Mass fraction] 97 % Brooke Podlogar CUSTOMS ENTRY CLERK.BENEFITS ADMINISTRATOR Work Phone: [facility] 11-07-2022 12:36-0400 Systolic blood pressure 142 mm[Hg] Brooke Podlogar CUSTOMS ENTRY CLERK.BENEFITS ADMINISTRATOR Work Phone: [facility] 10-30-2022 11:27-0400 Diastolic blood pressure 65 mm[Hg] Dr. Ignacio Cheatham Work Phone: [facility] 10-30-2022 11:27-0400 Heart rate 79 /min Dr. Ignacio Cheatham Work Phone: [facility] 10-30-2022 11:27-0400 Respiratory rate 17 /min Dr. Ignacio Cheatham Work Phone: [facility] 10-30-2022 11:27-0400 Systolic blood pressure 135 mm[Hg] Dr. Ignacio Cheatham Work Phone: [facility] 10-30-2022 07:17-0400 Body height 172.[address] Ignacio Cheatham Work Phone: [facility] 10-30-2022 07:17-0400 Body mass index (BMI) [Ratio] 34.8 kg/m2 Dr. Ignacio Cheatham Work Phone: [facility] 10-30-2022 07:17-0400 Body temperature 96.5 [degF] Dr. Ignacio Cheatham Work Phone: [facility] 10-30-2022 07:17-0400 Body weight [address] Ignacio Cheatham Work Phone: [facility] 10-20-2022 14:13-0400 Body weight 101.15 kg Ignacio Cheatham MD Work Phone: [facility] 10-20-2022 14:13-0400 Diastolic blood pressure 72 mm[Hg] Ignacio Cheatham MD Work Phone: [facility] 10-20-2022 14:13-0400 Heart rate 93 /min Ignacio Cheatham MD Work Phone: [facility] 10-20-2022 14:13-0400 SaO2% (BldA) [Mass fraction] 98 % Ignacio Cheatham MD Work Phone: [facility] 10-20-2022 14:13-0400 Systolic blood pressure 152 mm[Hg] Ignacio Cheatham MD Work Phone: [facility] 10-15-2022 17:32-0400 Body mass index (BMI) [Ratio] 75.2 kg/m2 Dr. Ignacio Cheatham Work Phone: [facility] 10-15-2022 17:32-0400 Body weight 224.[address] Ignacio Cheatham Work Phone: 1(162)269-981724 [place] [address] 10-15-2022 17:11-0400 Body height 172.[address] Ignacio Cheatham Work Phone: 6(697)396-648240 [place] [address] 10-15-2022 17:11-0400 Body temperature 97.7 [degF] Dr. Ignacio Cheatham Work Phone: 1(640)006-975240 [place] [address] 10-15-2022 17:11-0400 Diastolic blood pressure 57 mm[Hg] Dr. Ignacio Cheatham Work Phone: 7(964)692-242840 [place] [address] 10-15-2022 17:11-0400 Heart rate 98 /min Dr. Ignacio Cheatham Work Phone: 8(447)187-144240 [place] [address] 10-15-2022 17:11-0400 Respiratory rate 18 /min Dr. Ignacio Cheatham Work Phone: 8(628)325-656540 [place] [address] 10-15-2022 17:11-0400 SaO2% (BldA) [Mass fraction] 98 % Dr. Ignacio Cheatham Work Phone: 1(801)229-092340 [place] [address] 10-15-2022 17:11-0400 Systolic blood pressure 131 mm[Hg] Dr. Ignacio Cheatham Work Phone: 7(620)572-896140 [place] [address] 09-12-2022 13:32-0400 Body temperature 98 [degF] Dr. Ignacio Cheatham Work Phone: 9(549)475-054440 [place] [address] 09-12-2022 13:32-0400 Diastolic blood pressure 54 mm[Hg] Dr. Ignacio Cheatham Work Phone: 7(938)730-368340 [place] [address] 09-12-2022 13:32-0400 Heart rate 88 /min Dr. Ignacio Cheatham Work Phone: 9(979)780-791440 [place] [address] 09-12-2022 13:32-0400 Respiratory rate 16 /min Dr. Ignacio Cheatham Work Phone: 3(454)245-424140 [place] [address] 09-12-2022 13:32-0400 SaO2% (BldA) [Mass fraction] 99 % Dr. Ignacio Cheatham Work Phone: 0(036)529-296940 [place] [address] 09-12-2022 13:32-0400 Systolic blood pressure 156 mm[Hg] Dr. Ignacio Cheatham Work Phone: [facility] 09-12-2022 06:00-0400 Body mass index (BMI) [Ratio] 35.4 kg/m2 Dr. Ignacio Cheatham Work Phone: [facility] 09-12-2022 06:00-0400 Body weight 105.[address] Ignacio Cheatham Work Phone: [facility] 09-10-2022 04:02-0400 Body height 172.[address] Ignacio Cheatham Work Phone: [facility] 09-09-2022 16:11-0400 Diastolic blood pressure 92 mm[Hg] Ignacio Cheatham MD Work Phone: [facility] 09-09-2022 16:11-0400 Heart rate 105 /min Ignacio Cheatham MD Work Phone: [facility] 09-09-2022 16:11-0400 SaO2% (BldA) [Mass fraction] 96 % Ignacio Cheatham MD Work Phone: [facility] 09-09-2022 16:11-0400 Systolic blood pressure 160 mm[Hg] Ignacio Cheatham MD Work Phone: [facility] 09-07-2022 14:57-0400 Diastolic blood pressure 74 mm[Hg] [facility] 09-07-2022 14:57-0400 Heart rate 80 /min [facility] 09-07-2022 14:57-0400 Respiratory rate 16 /min [facility] 09-07-2022 14:57-0400 SaO2% (BldA) [Mass fraction] 99 % [facility] 09-07-2022 14:57-0400 Systolic blood pressure 177 mm[Hg] [facility] 09-07-2022 13:46-0400 Body height 172.72 cm [facility] 09-07-2022 13:46-0400 Body mass index (BMI) [Ratio] 35.9 kg/m2 [facility] 09-07-2022 13:46-0400 Body temperature 97.5 [degF] [facility] 09-07-2022 13:46-0400 Body weight 107.2 kg [facility] 07-31-2022 09:59-0400 Body temperature 98.2 [degF] Sha Ray CUSTOMS ENTRY CLERK.BENEFITS ADMINISTRATOR Work Phone: [facility] 07-31-2022 09:59-0400 Body weight 106.41 kg Sha Ray CUSTOMS ENTRY CLERK.BENEFITS ADMINISTRATOR Work Phone: [facility] 07-31-2022 09:59-0400 Diastolic blood pressure 92 mm[Hg] Sha Ray CUSTOMS ENTRY CLERK.BENEFITS ADMINISTRATOR Work Phone: [facility] 07-31-2022 09:59-0400 Heart rate 95 /min Sha Ray CUSTOMS ENTRY CLERK.BENEFITS ADMINISTRATOR Work Phone: [facility] 07-31-2022 09:59-0400 Respiratory rate 16 /min Sha Ray CUSTOMS ENTRY CLERK.BENEFITS ADMINISTRATOR Work Phone: [facility] 07-31-2022 09:59-0400 SaO2% (BldA) [Mass fraction] 98 % Sha Ray CUSTOMS ENTRY CLERK.BENEFITS ADMINISTRATOR Work Phone: [facility] 07-31-2022 09:59-0400 Systolic blood pressure 158 mm[Hg] Sha Ray CUSTOMS ENTRY CLERK.BENEFITS ADMINISTRATOR Work Phone: [facility] 06-30-2022 15:26-0400 Body height 172.7 cm Pacc 1 Work Phone: [facility] 06-30-2022 15:26-0400 Body temperature 97.11 [degF] Pacc 1 Work Phone: [facility] 06-30-2022 15:26-0400 Body weight 107.5 kg Pacc 1 Work Phone: [facility] 06-30-2022 15:26-0400 Diastolic blood pressure 86 mm[Hg] Pacc 1 Work Phone: [facility] 06-30-2022 15:26-0400 Heart rate 89 /min Pacc 1 Work Phone: [facility] 06-30-2022 15:26-0400 Respiratory rate 16 /min Pacc 1 Work Phone: [facility] 06-30-2022 15:26-0400 SaO2% (BldA) [Mass fraction] 96 % Pacc 1 Work Phone: [facility] 06-30-2022 15:26-0400 Systolic blood pressure 138 mm[Hg] Pacc 1 Work Phone: [facility] 06-24-2022 10:13-0400 Body temperature 97.7 [degF] Kirsten Athy PA-C Work Phone: [facility] 06-24-2022 10:13-0400 Body weight 108.41 kg Kirsten Athy PA-C Work Phone: [facility] 06-24-2022 10:13-0400 Diastolic blood pressure 78 mm[Hg] Kirsten Athy PA-C Work Phone: [facility] 06-24-2022 10:13-0400 Heart rate 90 /min Kirsten Athy PA-C Work Phone: [facility] 06-24-2022 10:13-0400 Respiratory rate 18 /min Kirsten Athy PA-C Work Phone: [facility] 06-24-2022 10:13-0400 SaO2% (BldA) [Mass fraction] 95 % Kirsten Athy PA-C Work Phone: [facility] 06-24-2022 10:13-0400 Systolic blood pressure 132 mm[Hg] Kirsten Athy PA-C Work Phone: [facility] 05-26-2022 14:44-0400 Body weight 105.51 kg Goldy Hunter DO Work Phone: [facility] 05-26-2022 14:44-0400 Diastolic blood pressure 89 mm[Hg] Goldy Hunter DO Work Phone: [facility] 05-26-2022 14:44-0400 Heart rate 106 /min Goldy Casasitz DO Work Phone: [facility] 05-26-2022 14:44-0400 Systolic blood pressure 162 mm[Hg] Goldy Hunter DO Work Phone: [facility] 04-02-2022 12:01-0500 Body temperature 97.81 [degF] Kirsten Athy PA-C Work Phone: [facility] 04-02-2022 12:01-0500 Body weight 104.69 kg Kirsten Athy PA-C Work Phone: [facility] 04-02-2022 12:01-0500 Diastolic blood pressure 72 mm[Hg] Kirsten Athy PA-C Work Phone: [facility] 04-02-2022 12:01-0500 Heart rate 124 /min Kirsten Athy PA-C Work Phone: [facility] 04-02-2022 12:01-0500 Respiratory rate 18 /min Kirsten Athy PA-C Work Phone: [facility] 04-02-2022 12:01-0500 SaO2% (BldA) [Mass fraction] 99 % Kirsten Athy PA-C Work Phone: [facility] 04-02-2022 12:01-0500 Systolic blood pressure 122 mm[Hg] Kirsten Athy PA-C Work Phone: [facility] 03-04-2022 14:17-0500 Body temperature 98.2 [degF] Hever Praisler-Wood CUSTOMS ENTRY CLERK.BENEFITS ADMINISTRATOR Work Phone: [facility] 03-04-2022 14:17-0500 Body weight 104.6 kg Hever Praisler-Wood CUSTOMS ENTRY CLERK.BENEFITS ADMINISTRATOR Work Phone: [facility] 03-04-2022 14:17-0500 Diastolic blood pressure 88 mm[Hg] Hever Praisler-Wood CUSTOMS ENTRY CLERK.BENEFITS ADMINISTRATOR Work Phone: [facility] 03-04-2022 14:17-0500 Heart rate 84 /min Hever Praisler-Wood CUSTOMS ENTRY CLERK.BENEFITS ADMINISTRATOR Work Phone: [facility] 03-04-2022 14:17-0500 Respiratory rate 16 /min Hever Praisler-Wood CUSTOMS ENTRY CLERK.BENEFITS ADMINISTRATOR Work Phone: [facility] 03-04-2022 14:17-0500 SaO2% (BldA) [Mass fraction] 98 % Hever Praisler-Wood CUSTOMS ENTRY CLERK.BENEFITS ADMINISTRATOR Work Phone: [facility] 03-04-2022 14:17-0500 Systolic blood pressure 148 mm[Hg] Hever Praisler-Wood CUSTOMS ENTRY CLERK.BENEFITS ADMINISTRATOR Work Phone: [facility] 02-18-2022 08:58-0500 Body temperature 96.91 [degF] Jimmy Hima CUSTOMS ENTRY CLERK.BENEFITS ADMINISTRATOR Work Phone: [facility] 02-18-2022 08:58-0500 Body weight 106.59 kg Jimmy Hima CUSTOMS ENTRY CLERK.BENEFITS ADMINISTRATOR Work Phone: [facility] 02-18-2022 08:58-0500 Diastolic blood pressure 84 mm[Hg] Jimmy Hima CUSTOMS ENTRY CLERK.BENEFITS ADMINISTRATOR Work Phone: [facility] 02-18-2022 08:58-0500 Heart rate 102 /min Jimmy Hima CUSTOMS ENTRY CLERK.BENEFITS ADMINISTRATOR Work Phone: [facility] 02-18-2022 08:58-0500 Respiratory rate 18 /min Jimmy Hima CUSTOMS ENTRY CLERK.BENEFITS ADMINISTRATOR Work Phone: [facility] 02-18-2022 08:58-0500 SaO2% (BldA) [Mass fraction] 100 % Jimmy Hima CUSTOMS ENTRY CLERK.BENEFITS ADMINISTRATOR Work Phone: [facility] 02-18-2022 08:58-0500 Systolic blood pressure 166 mm[Hg] Jimmy Hima CUSTOMS ENTRY CLERK.BENEFITS ADMINISTRATOR Work Phone: [facility] 02-04-2022 13:57-0500 Body height 170 cm Goldy Hunter DO Work Phone: [facility] 02-04-2022 13:57-0500 Body weight 105.5 kg Goldy Hunter DO Work Phone: [facility] 02-04-2022 13:57-0500 Diastolic blood pressure 91 mm[Hg] Goldyfrancisca Hunter DO Work Phone: [facility] 02-04-2022 13:57-0500 Heart rate 97 /min Goldyfrancisca Hunter DO Work Phone: [facility] 02-04-2022 13:57-0500 Systolic blood pressure 180 mm[Hg] Goldyfrancisca Hunter DO Work Phone: [facility] 01-13-2022 14:00-0500 Body temperature 97.2 [degF] Treatment Wstr Work Phone: [facility] 01-13-2022 14:00-0500 Diastolic blood pressure 79 mm[Hg] Treatment Wstr Work Phone: [facility] 01-13-2022 14:00-0500 Heart rate 92 /min Treatment Wstr Work Phone: [facility] 01-13-2022 14:00-0500 Respiratory rate 20 /min Treatment Wstr Work Phone: [facility] 01-13-2022 14:00-0500 SaO2% (BldA) [Mass fraction] 99 % Treatment Wstr Work Phone: [facility] 01-13-2022 14:00-0500 Systolic blood pressure 172 mm[Hg] Treatment Wstr Work Phone: [facility] 01-10-2022 14:38-0500 Body temperature 97.11 [degF] Treatment Wstr Work Phone: [facility] 01-10-2022 14:38-0500 Diastolic blood pressure 95 mm[Hg] Treatment Wstr Work Phone: [facility] 01-10-2022 14:38-0500 Heart rate 98 /min Treatment Wstr Work Phone: [facility] 01-10-2022 14:38-0500 Systolic blood pressure 160 mm[Hg] Treatment Wstr Work Phone: [facility] 01-08-2022 14:00-0500 Body temperature 97.11 [degF] Treatment Wstr Work Phone: [facility] 01-08-2022 14:00-0500 Diastolic blood pressure 89 mm[Hg] Treatment Wstr Work Phone: [facility] 01-08-2022 14:00-0500 Heart rate 100 /min Treatment Wstr Work Phone: [facility] 01-08-2022 14:00-0500 Systolic blood pressure 159 mm[Hg] Treatment Wstr Work Phone: [facility] 12-30-2021 09:11-0400 Body temperature 97.11 [degF] Treatment Wstr Work Phone: [facility] 12-30-2021 09:11-0400 Diastolic blood pressure 74 mm[Hg] Treatment Wstr Work Phone: [facility] 12-30-2021 09:11-0400 Heart rate 88 /min Treatment Wstr Work Phone: [facility] 12-30-2021 09:11-0400 Systolic blood pressure 143 mm[Hg] Treatment Wstr Work Phone: [facility] 12-18-2021 08:58-0400 Body height 170 cm Teagan Spencer MD Work Phone: [facility] 12-18-2021 08:58-0400 Body temperature 97.2 [degF] Teagan Spencer MD Work Phone: [facility] 12-18-2021 08:58-0400 Body weight 105.46 kg Teagan Spencer MD Work Phone: [facility] 12-18-2021 08:58-0400 Diastolic blood pressure 88 mm[Hg] Teagan Spencer MD Work Phone: [facility] 12-18-2021 08:58-0400 Heart rate 94 /min Teagan Spencer MD Work Phone: [facility] 12-18-2021 08:58-0400 SaO2% (BldA) [Mass fraction] 100 % Teagan Spencer MD Work Phone: [facility] 12-18-2021 08:58-0400 Systolic blood pressure 187 mm[Hg] Teagan Spencer MD Work Phone: [facility] 12-05-2021 13:02-0400 Body weight 103.42 kg Fab Cochran APRN.BENEFITS ADMINISTRATOR Work Phone: [facility] 12-05-2021 13:02-0400 Diastolic blood pressure 97 mm[Hg] Fba Cochran APRN.BENEFITS ADMINISTRATOR Work Phone: [facility] 12-05-2021 13:02-0400 Heart rate 87 /min Fab Cochran APRN.BENEFITS ADMINISTRATOR Work Phone: [facility] 12-05-2021 13:02-0400 Systolic blood pressure 188 mm[Hg] Fab Cochran APRN.BENEFITS ADMINISTRATOR Work Phone: [facility] 11-20-2021 15:45-0400 Body height 169.4 cm Respiratory Wstr Work Phone: [facility] 11-20-2021 15:45-0400 Body weight 108.86 kg Respiratory Wstr Work Phone: [facility] 10-15-2021 12:23-0400 Body temperature 98.71 [degF] Sha Ray APRN.BENEFITS ADMINISTRATOR Work Phone: [facility] 10-15-2021 12:23-0400 Body weight 104.33 kg Sha Ray CUSTOMS ENTRY CLERK.BENEFITS ADMINISTRATOR Work Phone: [facility] 10-15-2021 12:23-0400 Diastolic blood pressure 68 mm[Hg] Sha Ray APRN.BENEFITS ADMINISTRATOR Work Phone: [facility] 10-15-2021 12:23-0400 Heart rate 90 /min Sha Ray APRN.BENEFITS ADMINISTRATOR Work Phone: [facility] 10-15-2021 12:23-0400 Respiratory rate 16 /min Sha Ray CUSTOMS ENTRY CLERK.BENEFITS ADMINISTRATOR Work Phone: [facility] 10-15-2021 12:23-0400 SaO2% (BldA) [Mass fraction] 96 % Sha Ray CUSTOMS ENTRY CLERK.BENEFITS ADMINISTRATOR Work Phone: [facility] 10-15-2021 12:23-0400 Systolic blood pressure 136 mm[Hg] Sha Ray CUSTOMS ENTRY CLERK.BENEFITS ADMINISTRATOR Work Phone: [facility] 10-02-2021 16:07-0400 Body weight 106.78 kg Rojelio Clark MD Work Phone: [facility] 10-02-2021 16:07-0400 Diastolic blood pressure 69 mm[Hg] Rojelio Clark MD Work Phone: [facility] 10-02-2021 16:07-0400 Heart rate 95 /min Rojelio Clark MD Work Phone: [facility] 10-02-2021 16:07-0400 SaO2% (BldA) [Mass fraction] 98 % Rojelio Clark MD Work Phone: [facility] 10-02-2021 16:07-0400 Systolic blood pressure 157 mm[Hg] Rojelio Clark MD Work Phone: [facility] 09-14-2021 09:43-0400 Body weight 104.78 kg Ignacio Cheatham MD Work Phone: [facility] 09-14-2021 09:43-0400 Diastolic blood pressure 72 mm[Hg] Ignacio Cheatham MD Work Phone: [facility] 09-14-2021 09:43-0400 Heart rate 88 /min Ignacio Cheatham MD Work Phone: [facility] 09-14-2021 09:43-0400 Systolic blood pressure 138 mm[Hg] Ignacio Cheatham MD Work Phone: [facility] 08-26-2021 16:10-0400 Diastolic blood pressure 82 mm[Hg] Jonathan Valenzuela MD Work Phone: [facility] 08-26-2021 16:10-0400 Heart rate 85 /min Jonathan Valenzuela MD Work Phone: [facility] 08-26-2021 16:10-0400 Systolic blood pressure 142 mm[Hg] Jonathan Valenzuela MD Work Phone: [facility] 08-26-2021 16:03-0400 Body height 172.7 cm Jonathan Valenzuela MD Work Phone: [facility] 08-26-2021 16:03-0400 Body weight 104.78 kg Jonathan Valenzuela MD Work Phone: [facility] 08-26-2021 16:03-0400 Respiratory rate 16 /min Jonathan Valenzuela MD Work Phone: [facility] 08-26-2021 16:03-0400 SaO2% (BldA) [Mass fraction] 100 % Jonathan Valenzuela MD Work Phone: [facility] 08-12-2021 15:01-0400 Body weight 102.51 kg Jonathan Valenzuela MD Work Phone: [facility] 08-12-2021 15:01-0400 Diastolic blood pressure 92 mm[Hg] Jonathan Valenzuela MD Work Phone: [facility] 08-12-2021 15:01-0400 Heart rate 101 /min Jonathan Valenzuela MD Work Phone: [facility] 08-12-2021 15:01-0400 Respiratory rate 18 /min Jonathan Valenzuela MD Work Phone: [facility] 08-12-2021 15:01-0400 SaO2% (BldA) [Mass fraction] 97 % Jonathan Valenzuela MD Work Phone: [facility] 08-12-2021 15:01-0400 Systolic blood pressure 140 mm[Hg] Jonathan Valenzuela MD Work Phone: [facility] 08-01-2021 14:38-0400 Diastolic blood pressure 86 mm[Hg] Fab Cochran APRN.CNP Work Phone: [facility] 08-01-2021 14:38-0400 Systolic blood pressure 142 mm[Hg] Fab Cochran CUSTOMS ENTRY CLERK.BENEFITS ADMINISTRATOR Work Phone: [facility] 08-01-2021 13:49-0400 Body weight 101.15 kg Fab Sammie CUSTOMS ENTRY CLERK.BENEFITS ADMINISTRATOR Work Phone: [facility] 08-01-2021 13:49-0400 Heart rate 85 /min Fabmateo Cochran CUSTOMS ENTRY CLERK.BENEFITS ADMINISTRATOR Work Phone: [facility] 07-30-2021 14:15-0400 Body weight 101.15 kg Ignacio Cheatham MD Work Phone: [facility] 07-30-2021 14:15-0400 Diastolic blood pressure 60 mm[Hg] Ignacio Cheatham MD Work Phone: [facility] 07-30-2021 14:15-0400 Heart rate 89 /min Ignacio Cheatham MD Work Phone: [facility] 07-30-2021 14:15-0400 Respiratory rate 16 /min Ignacio Cheatham MD Work Phone: [facility] 07-30-2021 14:15-0400 SaO2% (BldA) [Mass fraction] 98 % Ignacio Cheatham MD Work Phone: [facility] 07-30-2021 14:15-0400 Systolic blood pressure 110 mm[Hg] Ignacio Cheatham MD Work Phone: [facility] 07-29-2021 22:32-0400 Diastolic blood pressure 76 mm[Hg] [facility] Work Phone: 07-29-2021 22:32-0400 Systolic blood pressure 149 mm[Hg] [facility] Work Phone: 07-29-2021 21:08-0400 Heart rate 102 /min [facility] Work Phone: 07-29-2021 20:52-0400 Body height 172.72 cm [facility] Work Phone: 07-29-2021 20:52-0400 Body mass index (BMI) [Ratio] 34.9 kg/m2 [facility] Work Phone: 07-29-2021 20:52-0400 Body temperature 98.2 [degF] [facility] Work Phone: 07-29-2021 20:52-0400 Body weight 104.32 kg [facility] Work Phone: 07-29-2021 20:52-0400 Respiratory rate 15 /min [facility] Work Phone: 07-29-2021 20:52-0400 SaO2% (BldA) [Mass fraction] 97 % [facility] Work Phone: 07-03-2021 12:47-0400 Body height [facility]-03[facility]21 12:47-0400 Body weight 104.33 kg [facility]ricia [facility] 07-03-2021 11:04-0400 Body height 172.7 cm [facility] Work Phone: [facility] 07-03-2021 11:04-0400 Body temperature 97.2 [degF] [facility] Work Phone: [facility] 07-03-2021 11:04-0400 Body weight 104.33 kg [facility] Work Phone: [facility] 07-03-2021 11:04-0400 Diastolic blood pressure 80 mm[Hg] [facility] Work Phone: [facility] 07-03-2021 11:04-0400 Heart rate 91 /min [facility] Work Phone: [facility] 07-03-2021 11:04-0400 SaO2% (BldA) [Mass fraction] 99 % [facility] Work Phone: [facility] 07-03-2021 11:04-0400 Systolic blood pressure 175 mm[Hg] [facility] Work Phone: [facility] 07-03-2021 09:47-0400 Body height 172.7 cm [facility] Work Phone: [facility] 07-03-2021 09:47-0400 Body temperature 97.2 [degF] [facility] Work Phone: [facility] 07-03-2021 09:47-0400 Body weight 104.33 kg [facility] Work Phone: [facility] 07-03-2021 09:47-0400 Diastolic blood pressure 80 mm[Hg] [facility] Work Phone: [facility] 07-03-2021 09:47-0400 Heart rate 91 /min [facility] Work Phone: [facility] 07-03-2021 09:47-0400 SaO2% (BldA) [Mass fraction] 99 % [facility] Work Phone: [facility] 07-03-2021 09:47-0400 Systolic blood pressure 175 mm[Hg] [facility] Work Phone: [facility] 06-28-2021 09:59-0400 Body height 172.2 cm Rojelio Clark MD Work Phone: [facility] 06-28-2021 09:59-0400 Body weight 102.51 kg Rojelio Clark MD Work Phone: [facility] 06-28-2021 09:59-0400 Diastolic blood pressure 57 mm[Hg] Rojelio Clark MD Work Phone: [facility] 06-28-2021 09:59-0400 Heart rate 83 /min Rojelio Clark MD Work Phone: [facility] 06-28-2021 09:59-0400 Respiratory rate 16 /min Rojelio Clark MD Work Phone: [facility] 06-28-2021 09:59-0400 SaO2% (BldA) [Mass fraction] 99 % Rojelio Clark MD Work Phone: [facility] 06-28-2021 09:59-0400 Systolic blood pressure 137 mm[Hg] Rojelio Clark MD Work Phone: [facility] 06-26-2021 15:46-0400 Body weight 102.97 kg Ignacio Cheatham MD Work Phone: [facility] 06-26-2021 15:46-0400 Diastolic blood pressure 86 mm[Hg] Ignacio Cheatham MD Work Phone: [facility] 06-26-2021 15:46-0400 Heart rate 88 /min Ignacio Cheatham MD Work Phone: [facility] 06-26-2021 15:46-0400 Systolic blood pressure 154 mm[Hg] Ignacio Cheatham MD Work Phone: [facility] 06-03-2021 17:30-0400 Respiratory rate 20 /min Stacy Bogner PA-C Work Phone: [facility] 06-03-2021 14:59-0400 Body temperature 96.69 [degF] Stacy Bogner PA-C Work Phone: [facility] 06-03-2021 14:59-0400 Body weight 101.7 kg Stacy Bogner PA-C Work Phone: [facility] 06-03-2021 14:59-0400 Diastolic blood pressure 68 mm[Hg] Stacy Bogner PA-C Work Phone: [facility] 06-03-2021 14:59-0400 Heart rate 86 /min Stacy Bogner PA-C Work Phone: [facility] 06-03-2021 14:59-0400 SaO2% (BldA) [Mass fraction] 100 % Stacy Bogner PA-C Work Phone: [facility] 06-03-2021 14:59-0400 Systolic blood pressure 138 mm[Hg] Stacy Bogner PA-C Work Phone: [facility] Encounters Encounter Date Encounter Type Care Provider Facility Start: 09-26-2024 End: 09-28-2024 Refill Alondra Juliet CUSTOMS ENTRY CLERK.BENEFITS ADMINISTRATOR Work Phone: Neurology Comment on above: Refill Request Start: 09-19-2024 End: 09-22-2024 Telephone encounter Alondranisreen Chung CUSTOMS ENTRY CLERK.BENEFITS ADMINISTRATOR Work Phone: Neurology Comment on above: Insurance Authorizat ion Start: 09-12-2024 End: 09-12-2024 Patient encounter procedure Liz Ferreira MD Work Phone: Pulmonary Medicine Comment on above: Lung nodules (Primar y Dx); Mild intermittent asthma without complication (HCC); ESRD (end stage renal disease) on dialysis (HCC) Start: 09-12-2024 End: 09-12-2024 ambulatory LIZ FERREIRA Facility:[facility] Start: 09-10-2024 End: 09-15-2024 Refill Alondra Ujliet CUSTOMS ENTRY CLERK.BENEFITS ADMINISTRATOR Work Phone: Neurology Comment on above: Refill Request Start: 09-07-2024 End: 09-07-2024 Telephone encounter Ignacio Cheatham MD Work Phone: [facility] [place] Comment on above: Breathing Problem Start: 09-06-2024 End: 09-06-2024 Emergency department patient visit Dr. Ignacio Cheatham MD Work Phone: -Emergency Department Work Phone: Start: 09-06-2024 End: 09-06-2024 Telephone encounter Ignacio Cheatham MD Work Phone: [facility] [place] Comment on above: FYI-No Action Needed Start: 08-26-2024 End: 08-26-2024 [facility] Start: 08-24-2024 ambulatory [facility] Facility:[facility] Start: 08-24-2024 Registered Recurring Tresa Marcum CUSTOMS BROKER-C -Physical Therapy Work Phone: Start: 08-24-2024 End: 08-24-2024 Telephone encounter Chloe Ellington RN [facility] Mechanical Maintenance Worker Start: 08-12-2024 End: 08-15-2024 Telephone encounter Saira Jackson DO Work Phone: Vascular Surgery Comment on above: Appointment (Needs t o change time for procedure ) Start: 08-10-2024 End: 08-10-2024 Orders Only Saira Jackson DO Work Phone: Vascular Surgery Comment on above: ESRD (end stage edgar l disease) (HCC) (Primary Dx) Acute exacerbation o f chronic obstructive pulmonary disease (HCC) (Primary Dx); Irritable bowel syndrome, unspecified type Start: 08-04-2024 End: 08-04-2024 Telephone encounter Efra Galarza APRN.BENEFITS ADMINISTRATOR Work Phone: [facility] [place] Comment on above: No Show (Missed #1) Start: 08-01-2024 End: 08-02-2024 Telephone encounter Ignacio Cheatham MD Work Phone: [facility] Comment on above: Insurance Authorizat ion (Trul[employer]) Start: 07-29-2024 End: 09-28-2024 Follow-up encounter Tresa Marcum APRN.BENEFITS ADMINISTRATOR Work Phone: [facility] Comment on above: Results - Ct Start: 07-29-2024 End: 08-01-2024 Telephone encounter Alondra Chung APRN.BENEFITS ADMINISTRATOR Work Phone: Neurology Comment on above: Patient Question Start: 07-28-2024 End: 08-03-2024 Telephone encounter Saira Jackson DO Work Phone: Vascular Surgery Comment on above: Results Start: 07-27-2024 End: 07-27-2024 ambulatory SAIRA JACKSON Facility:[facility] Start: 07-27-2024 End: 07-27-2024 Subsequent hospital visit by physician Ct [facility] Wstr (I-Stat) Work Phone: Cat Scan Comment on above: Lung nodules [R91.8] Start: 07-11-2024 End: 07-11-2024 ambulatory IGNACIO CHEATHAM Facility:[facility] Start: 07-11-2024 End: 07-11-2024 Patient encounter procedure Gege Mccrary OD Work Phone: Ophthalmology Comment on above: Type 2 diabetes dion itus with stable proliferative retinopathy of both eyes, with long-term current use of insulin (HCC) (Primary Dx); Presbyopia; Pseudophakia of both eyes Start: 07-06-2024 End: 07-06-2024 Patient encounter procedure Trinidad Frazier APRN.CNP Work Phone: Endocrinology Comment on above: Diabetes mellitus tr eated with injections of non-insulin medication (HCC) (Primary Dx); Type 2 diabetes, controlled, with neuropathy (HCC) Start: 07-06-2024 End: 07-07-2024 Telephone encounter Trinidad Frazier APRN.CNP Work Phone: Endocrinology Comment on above: Supervisor - O ther (Prior Auth) Start: 07-06-2024 End: 07-06-2024 [facility] Facility:[facility] Start: 07-05-2024 End: 07-05-2024 Telephone encounter Alondra Chung APRN.CNP Work Phone: Neurology Start: 07-04-2024 End: 07-04-2024 Patient encounter procedure Alondra Chung APRN.CNP Work Phone: Neurology Comment on above: RLS (restless legs s yndrome) (Primary Dx); Insomnia, unspecified type; CASSIE (obstructive sleep apnea); Stage 5 chronic kidney disease on chronic dialysis ([facility]) Start: 07-04-2024 End: 07-04-2024 ambulatory ALONDRA JULIET Facility:[facility] Start: 06-08-2024 End: 06-08-2024 Refill Tresa Marcum APRN.CNP Work Phone: [facility] [place] Comment on above: Refill Request Start: 06-01-2024 End: 06-01-2024 [facility] Facility:[facility] Start: 06-01-2024 End: 06-01-2024 Office outpatient visit 25 minutes Tresa Marcum APRN.CNP Work Phone: [facility] [place] Comment on above: Type 2 diabetes, con trolled, with neuropathy (HCC) (Primary Dx); Anxiety; Primary hypertension; Mixed hyperlipidemia; Gastroesophageal reflux disease, unspecified whether esophagitis present; CASSIE (obstructive sleep apnea); Chronic insomnia; Lung nodules; Other chronic pain; Fibromyalgia; Weakness of both lower extremities; End stage renal disease on dialysis (HCC); Sleep apnea, unspecified type Start: 05-10-2024 End: 05-11-2024 Telephone encounter Ignacio Cheatham MD Work Phone: [facility] [place] Comment on above: Orders Start: 04-19-2024 End: 05-20-2024 ambulatory Ignacio Cheatham MD Work Phone: [facility] [place] Start: 04-15-2024 End: 04-15-2024 ambulatory [facility] Facility:[facility] Start: 04-15-2024 End: 04-15-2024 Office outpatient visit 25 minutes Sha Ray APRN.BENEFITS ADMINISTRATOR Work Phone: [facility] Comment on above: Dental decay (Primar y Dx) Start: 04-06-2024 End: 08-16-2024 Telephone encounter Anat Lopez APRN.BENEFITS ADMINISTRATOR Work Phone: [facility] Start: 04-02-2024 End: 04-02-2024 Emergency department patient visit [facility] Facility:[facility] Start: 03-30-2024 End: 04-08-2024 Telephone encounter Ignacio Cheatham MD Work Phone: [facility] [place] Comment on above: Patient Update Start: 03-28-2024 End: 03-28-2024 ambulatory No Pcp CUSTOMS ENTRY CLERK [facility] Start: 03-28-2024 End: 03-28-2024 Patient encounter procedure No Pcp CUSTOMS ENTRY CLERK [facility] Start: 03-25-2024 End: 03-25-2024 ambulatory [facility] Facility:[facility] Start: 03-25-2024 End: 03-25-2024 Patient encounter procedure Ignacio Cheatham MD Work Phone: [facility] [place] Comment on above: TIA (transient ische eduardo attack) (Primary Dx); Type 2 diabetes, controlled, with neuropathy (HCC); Primary hypertension; Type 2 diabetes mellitus with stage 4 chronic kidney disease, without long-term current use of insulin (HCC); ESRD (end stage renal disease) (HCC); Spinal stenosis of lumbar region, unspecified whether neurogenic claudication present; Anxiety Start: 03-23-2024 End: 04-08-2024 Telephone encounter Ignacio Cheatham MD Work Phone: [facility] Comment on above: Medicaid Program For Start: 03-18-2024 ambulatory Ignacio Cheatham Facility:[facility] Start: 03-17-2024 End: 03-18-2024 ambulatory Hipolito Shepard Facility:[facility] Start: 03-04-2024 End: 03-04-2024 Telephone encounter Saira Jackson DO Work Phone: Vascular Surgery Start: 02-09-2024 End: 02-09-2024 ambulatory SAIRA JACKSON Facility:[facility] Start: 02-09-2024 End: 02-09-2024 Patient encounter procedure Saira Jackson DO Work Phone: Vascular Surgery Comment on above: Stenosis of arteriov enous graft, 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HCC) (Primary Dx); ESRD (end stage renal disease) (HCC) Start: 01-21-2024 End: 01-22-2024 Telephone encounter Ignacio Cheatham MD Work Phone: [facility] Comment on above: Forms Start: 01-20-2024 End: 01-20-2024 E-mail encounter from caregiver Yana Duque [facility] Work Phone: [facility] Start: 01-20-2024 End: 01-20-2024 Patient encounter procedure Yana Duque [facility] Work Phone: [facility] Comment on above: Virtual visit with barrett madrigal Start: 01-18-2024 End: 02-16-2024 Telephone encounter Ignacio Cheatham MD Work Phone: [facility] Comment on above: Referral Request Start: 01-12-2024 End: 01-18-2024 Telephone encounter Sha Myrick MD Work Phone: [facility] [place] Comment on above: Results Start: 01-04-2024 End: 01-05-2024 ambulatory IGNACIO CHEATHAM Facility:[facility] Start: 12-31-2023 End: 01-07-2024 [facility] Work Phone: Neurology Start: 12-25-2023 End: 12-25-2023 ambulatory IGNACIO MEYERSO Facility:[facility] Start: 12-25-2023 End: 12-25-2023 Patient encounter procedure Ignacio Cheatham MD Work Phone: [facility] [place] Comment on above: Type 2 diabetes, con trolled, with neuropathy ([facility]) (Primary Dx); Primary hypertension; Mixed hyperlipidemia; CASSIE (obstructive sleep apnea); ESRD (end stage renal disease) ([facility]); Proliferative diabetic retinopathy associated with type 2 diabetes mellitus, unspecified laterality, unspecified proliferative retinopathy type ([facility]); 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; Bipolar affective disorder, remission status unspecified ([facility]); Personal history of DVT (deep vein thrombosis) Start: 12-21-2023 End: 12-21-2023 Patient encounter procedure Dorene Murillo MD Work Phone: [facility] Comment on above: Closed complex fract ure of right tibia with nonunion (Primary Dx); Primary osteoarthritis of left knee Start: 12-21-2023 End: 12-21-2023 ambulatory DORENE MURILLO Facility:[facility] Start: 12-11-2023 End: 12-11-2023 Office outpatient visit 25 minutes Tresa Marcum APRN.CNP Work Phone: [facility] [place] Comment on above: Pathological fractur e of both tibia and fibula of right lower extremity due to other disease with delayed healing, subsequent encounter (Primary Dx); Anxiety; ESRD (end stage renal disease) ([facility]); Dental infection; Neuropathy; Mixed hyperlipidemia; Encounter for immunization; Type 2 diabetes mellitus with stage 4 chronic kidney disease, without long-term current use of insulin ([facility]); Gastroesophageal reflux disease, unspecified whether esophagitis present; CASSIE (obstructive sleep apnea) Start: 12-11-2023 End: 12-11-2023 ambulatory TRESA MARCUM Facility:[facility] Start: 12-07-2023 End: 12-07-2023 Telephone encounter Tresa Halillian GUERREROBENEFITS ADMINISTRATOR Work Phone: [facility] [place] Comment on above: Appointment Start: 11-02-2023 End: 11-03-2023 Emergency department patient visit Minh Arroyo Facility:[facility] Start: 10-31-2023 End: 10-31-2023 Emergency department patient visit Sylvester Winston Facility:[facility] Start: 09-30-2023 ambulatory [facility] Facility:[facility] Start: 09-23-2023 ambulatory [facility] Facility:[facility] Start: 09-18-2023 Telephone encounter Dorene mayes MD Work Phone: [facility] Comment on above: Orders Start: 09-14-2023 End: 09-14-2023 Patient encounter procedure Dorene Murillo MD Work Phone: [facility] Comment on above: Closed complex fract ure of right tibia with nonunion (Primary Dx) Start: 09-14-2023 End: 09-14-2023 ambulatory DORENE MURILLO Facility:[facility] Start: 08-17-2023 End: 08-17-2023 Patient encounter procedure Dorene Murillo MD Work Phone: [facility] Comment on above: Closed complex fract ure of right tibia with nonunion (Primary Dx) Start: 08-17-2023 End: 08-17-2023 ambulatory DORENE MURILLO Facility:[facility] Start: 07-28-2023 Telephone encounter Dorene mayes MD Work Phone: [facility] Comment on above: Infection; Appointme nt Start: 07-13-2023 Refill Dorene joshi MD Work Phone: [facility] Comment on above: Refill Request Start: 07-10-2023 Refill Dorene joshi MD Work Phone: [facility] Comment on above: Orders; Refill Reque st Start: 07-06-2023 End: 07-06-2023 Patient encounter procedure Dorene Murillo MD Work Phone: [facility] Comment on above: Closed complex fract ure of right tibia with nonunion (Primary Dx) Start: 07-02-2023 End: 07-02-2023 ambulatory [facility] Work Phone: Start: 07-02-2023 End: 07-02-2023 Patient encounter procedure [facility] Work Phone: Start: 06-30-2023 Telephone encounter Dorene mayes MD Work Phone: [facility] Comment on above: Orders Start: 06-30-2023 Registered Referred [facility]-Laboratory, Specimen Work Phone: Start: 06-29-2023 End: 06-30-2023 Emergency department patient visit [facility]-Emergency Department Work Phone: Start: 06-29-2023 Refill Dorene joshi MD Work Phone: [facility] Comment on above: Refill Request Start: 06-24-2023 Telephone encounter Ignacio Cheatham MD Work Phone: [facility] Comment on above: Sam Rayburn Valve Lapper Start: 06-18-2023 Telephone encounter Dorene mayes MD Work Phone: [facility] Comment on above: Appointment Start: 06-12-2023 Telephone encounter Sylvester baptiste MD Work Phone: [facility] Comment on above: Requesting apt for p t Start: 06-10-2023 Telephone encounter Reagan mejia MD Work Phone: Orthopaedics Comment on above: Patient Update Start: 06-09-2023 End: 06-09-2023 Emergency department patient visit [facility]-Emergency Department Work Phone: Start: 06-08-2023 Telephone encounter Ignacio Cheatham MD Work Phone: [facility] Comment on above: FYI Start: 06-04-2023 End: 06-04-2023 Emergency department patient visit [facility]Emergency Department Work Phone: Start: 05-20-2023 Telephone encounter Ignacio Cheatham MD Work Phone: [facility] Comment on above: Patient Update Start: 05-15-2023 End: 05-15-2023 Patient encounter procedure Frank Gerard Work Phone: Podiatry Comment on above: Ingrowing toenail of right foot (Primary Dx); Neuropathy; Type 2 diabetes, controlled, with neuropathy (HCC); Open wound of toe of right foot; Diminished pulses in lower extremity; Hammertoe, bilateral Start: 05-13-2023 ambulatory Ignacio Cheatham MD Work Phone: Internal Medicine [facility] Start: 05-01-2023 End: 05-01-2023 Patient encounter procedure Gege Mccrary OD Work Phone: Ophthalmology Comment on above: Type 2 diabetes dion itus with stable proliferative retinopathy of both eyes, with long-term current use of insulin (HCC) (Primary Dx); Presbyopia; Pseudophakia of both eyes Start: 04-14-2023 Telephone encounter Ignacio Cheatham MD Work Phone: [facility] Comment on above: Patient Question Start: 04-06-2023 Telephone encounter Ignacio Cheatham MD Work Phone: [facility] Comment on above: Results Start: 04-03-2023 End: 04-03-2023 Subsequent hospital visit by physician Ct [facility] Wstr (I-Stat) Work Phone: Cat Scan Comment on above: Lung nodules [R91.8] Start: 03-17-2023 End: 03-17-2023 Subsequent hospital visit by physician Xr [facility] [place] Work Phone: Radiology Comment on above: Foot pain, right [M7 9.671] Start: 03-09-2023 End: 03-09-2023 Emergency department patient visit Dr. Ignacio Cheatham Work Phone: [facility] [facility] Work Phone: Start: 03-04-[address] Viky Cheatham Work Phone: [facility] Start: 02-25-[address] Viky Cheatham Work Phone: [facility] Start: 02-18-[address] Viky Cheatham Work Phone: [facility] Start: 02-11-[address] Viky Cheatham Work Phone: [facility] Start: 02-09-[address] Viky Cheatham Work Phone: [facility] Start: 02-04-2023 End: 02-04-2023 Emergency department patient visit Dr. Ignacio Cheatham Work Phone: [facility] Work Phone: Start: 02-04-[address] Viky Cheatham Work Phone: [facility] Start: 01-29-2023 Non-patient / Non-visit Dr. Lance Cheatham Work Phone: [facility] Work Phone: Start: 01-28-2023 Non-patient / Non-visit Dr. Lance Cheatham Work Phone: [facility] Work Phone: Start: 01-27-2023 Telephone encounter Rojelio Monsalve i, MD Work Phone: Endocrinology Comment on above: PA--TRULICITY Start: 01-27-2023 Non-patient / Non-visit Dr. Lance Cheatham Work Phone: [facility] Work Phone: Start: 01-26-2023 Non-patient / Non-visit Dr. Lance Cheatham Work Phone: [facility] Work Phone: Start: 01-26-2023 Refill Rojelio Clark MD Work Phone: Endocrinology Comment on above: Refill Request Start: 01-25-2023 Non-patient / Non-visit Dr. Lance Cheatham Work Phone: [facility] Work Phone: Start: 01-24-2023 Non-patient / Non-visit Dr. Lance Cheatham Work Phone: [facility] Work Phone: Start: 01-23-2023 Non-patient / Non-visit Dr. Lance Cheatham Work Phone: [facility] Work Phone: Start: 01-22-2023 Non-patient / Non-visit Dr. Lance Cheatham Work Phone: [facility] Work Phone: Start: 01-22-2023 End: 01-22-2023 Non-patient / Non-visit Dr. Ignacio Cheatham Work Phone: [facility] Work Phone: Start: 01-21-2023 Non-patient / Non-visit Dr. Lance Cheatham Work Phone: [facility] Work Phone: Start: 01-20-2023 Non-patient / Non-visit Dr. Lance Chaetham Work Phone: [facility] Work Phone: Start: 01-20-2023 End: 01-20-2023 Non-patient / Non-visit Dr. Ignacio Cheatham Work Phone: [facility] Work Phone: Start: 01-19-2023 End: 01-19-2023 Non-patient / Non-visit Dr. Ignacio Cheatham Work Phone: [facility] Work Phone: Start: 01-19-2023 End: 01-29-2023 Evaluation and management of inpatient [facility] Start: 01-19-2023 Non-patient / Non-visit Dr. Lance Cheatham Work Phone: [facility] Work Phone: Start: 01-15-2023 Telephone encounter Ignacio Cheatham MD Work Phone: [facility] Comment on above: Pt going to [facility] ER Start: 01-15-2023 Non-patient / Non-visit Dr. Lance Cheatham Work Phone: [facility] Start: 01-15-2023 End: 01-15-2023 Emergency department patient visit Dr. Ignacio Cheatham Work Phone: [facility] Work Phone: Start: 01-13-2023 End: 01-13-2023 Emergency department patient visit Dr. 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); Stress fracture of right tibia with routine healing, subsequent encounter Start: 12-15-2022 End: 12-15-2022 Subsequent hospital visit by physician Xr [facility] Work Phone: Radiology Comment on above: Stress fracture of r ight tibia, initial encounter [M84.361A] Start: 12-12-2022 ambulatory Reagan Riggs MD Work Phone: Orthopaedics Comment on above: X-ray Start: 12-10-2022 Orders Only Reagan Riggs MD Work Phone: Orthopaedics Comment on above: Stress fracture of r ight tibia, 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Primary Dx) Start: 11-24-2022 ambulatory Ignacio Cheatham MD Work Phone: [facility] [place] Comment on above: Short Term Paperwork Start: 11-24-2022 Telephone encounter Reagan mejia MD Work Phone: Orthopaedics Comment on above: Short term disabilit y paperwork Start: 11-20-2022 Telephone encounter Mackenzie Zamora CUSTOMS ENTRY CLERK.BENEFITS ADMINISTRATOR Work Phone: [facility] Start: 11-19-2022 ambulatory Ignacio Cheatham MD Work Phone: [facility] [place] Comment on above: Lyrica Start: 11-19-2022 End: 11-19-2022 Patient encounter procedure Kimberli Saleem CUSTOMS ENTRY CLERK.BENEFITS ADMINISTRATOR Work Phone: [facility] Comment on above: Dysuria (Primary Dx) Start: 11-18-2022 Telephone encounter Ignacio Cheatham MD Work Phone: [facility] [place] Comment on above: Erroneous encounter- disregard Start: 11-17-2022 Telephone encounter Ignacio Cheatham MD Work Phone: [facility] [place] Comment on above: [facility], PT (d/c pt on 11/14/22/) Start: 11-14-2022 Telephone encounter Ignacio Cheatham MD Work Phone: [facility] [place] Comment on above: Short Term Disabiity Forms Start: 11-10-2022 End: 11-10-2022 Subsequent hospital visit by physician Joni [facility] [place] [facility] Work Phone: Radiology Comment on above: Pain of right lower extremity [M79.604] Start: 11-10-2022 Telephone encounter Brooke lópez APRN.BENEFITS ADMINISTRATOR [facility] Comment on above: Patient Update Start: 11-10-2022 End: 11-10-2022 Patient encounter procedure Reagan Riggs MD Work Phone: Orthopaedics Comment on above: Stress fracture of r ight tibia, 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Primary Dx); Pain of right lower extremity Start: 11-07-2022 End: 11-07-2022 Patient encounter procedure Brooke Manning APRN.BENEFITS ADMINISTRATOR Work Phone: Family [facility] [place] Comment on above: Neuropathy of hand, unspecified laterality (Primary Dx); Encounter for drug screening Start: 11-01-2022 Telephone encounter Ignacio Cheatham MD Work Phone: Internal Medicine [place] Comment on above: Patient Update Start: 10-30-2022 Non-patient / Non-visit Dr. Lance Cheatham Work Phone: [facility] Start: 10-30-2022 End: 10-30-2022 Emergency department patient visit Dr[facility] Start: 10-20-2022 End: 10-20-2022 Patient encounter procedure Ignacio Cheatham MD Work Phone: [facility] [place] Comment on above: Pain of right lower extremity (Primary Dx); Mixed hyperlipidemia; Abnormal x-ray; Lumbar radiculopathy; Primary hypertension; Type 2 diabetes, controlled, with neuropathy (HCC); End stage renal disease (HCC); Anxiety Start: 10-16-2022 Telephone encounter Ignacio Cheatham MD Work Phone: Family [facility] [place] Comment on above: [facility] Start: 10-15-2022 End: 10-15-2022 Emergency department patient visit Dr. Ignacio Cheatham Work Phone: [facility] Work Phone: Start: 10-14-2022 ambulatory Ignacio Cheatham MD Work Phone: [facility] Comment on above: 10/15 visit Refill Request Start: 10-09-2022 Telephone encounter Ignacio Cheatham MD Work Phone: [facility] Comment on above: Home Health Physical Therapy Order Request Start: 09-29-2022 Telephone encounter [facility] Comment on above: Return Call Request (Kidney Txp Evaluation Status) Start: 09-24-2022 End: 09-24-[address] Ignacio Cheatham Work Phone: [facility] Work Phone: Start: 09-24-2022 End: 09-24-[address] Ignacio Cheatham Work Phone: [facility] Start: 09-24-[address] Viky Cheatham Work Phone: [facility] Start: 09-19-2022 End: 09-19-[address] Ignacio Cheatham Work Phone: [facility] Work Phone: Start: 09-19-2022 End: 09-19-[address] Ignacio Cheatham Work Phone: [facility] Start: 09-19-[address] Viky Cheatham Work Phone: [facility] Start: 09-18-2022 Telephone encounter Tyler hernandez DO Work Phone: Hematology/Oncology Comment on above: Appointment Start: 09-17-2022 End: 09-17-[address] Ignacio Cheatham Work Phone: [facility] Work Phone: Start: 09-17-2022 End: 09-17-[address] Ignacio Cheatham Work Phone: [facility] Start: 09-17-[address] Viky Cheatham Work Phone: [facility] Start: 09-16-2022 Telephone encounter Dialysis Kid [facility] Comment on above: Dialysis CKD Follow Up (Optim al Transition Program); Patient Update Start: 09-15-2022 End: 09-15-[address] Ignacio Cheatham Work Phone: [facility] Work Phone: Start: 09-15-2022 End: 09-15-[address] Ignacio Cheatham Work Phone: [facility] Start: 09-15-[address] Viky Cheatham Work Phone: [facility] Start: 09-12-2022 Non-patient / Non-visit Dr. Lance Cheatham Work Phone: [facility] Work Phone: Start: 09-11-2022 Telephone encounter Ana aquino RN Work Phone: Hematology/Oncology Comment on above: Supervisor - E D Follow Up Start: 09-11-2022 Non-patient / Non-visit Dr. Lance Cheatham Work Phone: [facility] Work Phone: Start: 09-10-2022 Refill Rojelio Clark MD Work Phone: Endocrinology Comment on above: Refill Request Start: 09-10-2022 Telephone encounter Fab sibley APRN.BENEFITS ADMINISTRATOR Work Phone: Kidney Medicine [facility] Comment on above: [place] CKD (chronic kidney disease) stage 5, GFR less than 15 ml/min ([facility]) (Primary Dx); Anemia of renal disease; Hyperkalemia; Metabolic acidosis; Hypocalcemia Start: 09-10-2022 End: 09-12-2022 Evaluation and management of inpatient Dr. Ignacio Cheatham Work Phone: [facility] 3 Work Phone: Start: 09-10-2022 End: 09-12-[address] Ignacio Cheatham Work Phone: [facility] Work Phone: Start: 09-10-2022 Non-patient / Non-visit Dr. Lance Cheatham Work Phone: [facility] Work Phone: Start: 09-09-2022 End: 09-09-2022 Patient encounter procedure Ignacio Cheatham MD Work Phone: [facility] [place] Comment on above: Inability to ambulat e due to multiple joints (Primary Dx); Superficial phlebitis of right leg; Type 2 diabetes, controlled, with neuropathy (HCC); Essential hypertension Start: 09-07-2022 End: 09-07-2022 Emergency department patient visit [facility] Work Phone: Start: 09-03-2022 ambulatory Kaylin Carranza RN [facility] Start: 09-03-2022 Follow-up encounter [facility] Comment on above: CKD Follow Up (Optim al Transition Program/Prep for Dialysis ) Start: 08-27-2022 Telephone encounter Kaylin [facility] Comment on above: Patient Update ([facility] ular appt) CKD (chronic kidney disease) stage 5, GFR less than 15 ml/min (HCC) (Primary Dx) Start: 08-26-2022 Orders Only Fab Lynn i, APRN.BENEFITS ADMINISTRATOR Work Phone: Kidney Medicine Comment on above: Hyperkalemia (Primar y Dx) Start: 08-21-2022 End: 08-21-2022 ambulatory Injection Iam [facility] Work Phone: Hematology/Oncology Comment on above: CKD (chronic kidney disease) Stage 4, GFR 15-29 ml/min (Primary Dx) Start: 08-21-2022 End: 08-21-2022 Subsequent hospital visit by physician Xr [facility] Work Phone: Radiology Comment on above: CKD (chronic kidney disease) stage 5, GFR less than 15 ml/min (HCC) [N18.5] Start: 08-20-2022 Telephone encounter Kaylin [facility] Comment on above: Patient Update (Opti mal Transition Program - Dialysis) Start: 08-18-2022 Telephone encounter Kaylin Sosa Comment on above: Orders Start: 08-11-2022 End: 08-11-2022 Subsequent hospital visit by physician Joni [facility] [place] [facility] Work Phone: Radiology Comment on above: Right elbow pain [M2 5.521] Start: 08-05-2022 Patient Outreach Chrissy Cheng RN Work Phone: [employer] Comment on above: Transition Of Care ( TCM Initial Hospital Discharge 08/04/2022) Hospital F/U Orders Transition Of Care ( TCM Pharmacy-Hospital discharge 08/04/22) Start: 08-04-2022 ambulatory Goldy Hunter D O Work Phone: Kidney Medicine Comment on above: Short Term Start: 07-31-2022 Telephone encounter Katrin mueller CUSTOMS ENTRY CLERK.BENEFITS ADMINISTRATOR Work Phone: Vascular Surgery Comment on above: Returning Patient's Call; Appointment Start: 07-31-2022 End: 07-31-2022 Patient encounter procedure Sha Ray CUSTOMS ENTRY CLERK.BENEFITS ADMINISTRATOR Work Phone: [facility] Comment on above: Procedure not zina d out (Primary Dx) Start: 07-24-2022 End: 07-24-2022 ambulatory UNKNOWN PROVIDER Facility[facility] Start: 07-01-2022 ambulatory Goldy Hunter D O Work Phone: Kidney Medicine Comment on above: potassium level Start: 07-01-2022 E-mail encounter devika m caregiver Goldy Hunter DO Work Phone: [facility] Start: 06-30-2022 End: 06-30-2022 [facility] Work Phone: Pre Anesthesia Comment on above: Pre-operative examin ation (Primary Dx); Mild intermittent asthma without complication; Bipolar affective disorder, remission status unspecified ([facility]); Anemia, unspecified type; Neuropathy; Gastroesophageal reflux disease, unspecified whether esophagitis present; Type 2 diabetes, controlled, with neuropathy ([facility]); H/O gastric bypass; Essential hypertension; Mixed hyperlipidemia; Personal history of DVT (deep vein thrombosis); Hypercoagulable state ([facility]); ESRD (end stage renal disease) ([facility]); Pulmonary nodules; Class 2 severe obesity due to excess calories with serious comorbidity and body mass index (BMI) of 36.0 to 36.9 in adult ([facility]); Hyperkalemia Start: 06-30-2022 End: 06-30-2022 Preprocedural examination done Pac [facility] [facility] Work Phone: Pre Anesthesia Start: 06-25-2022 Refill Goldy Snyder Work Phone: Kidney Medicine Comment on above: Refill Request Start: 06-24-2022 End: 06-24-2022 Patient encounter procedure Kirsten Euceda PA-C Work Phone: [facility] Comment on above: Acute UTI (Primary D x) Start: 06-20-2022 ambulatory Kaylin Carranza RN [facility] Start: 06-20-2022 Follow-up encounter Kaylin Carranza RN [facility] Comment on above: CKD Follow Up (Optim al Transition Program ) ESRD (end stage edgar l disease) ([facility]) (Primary Dx) Start: 06-19-2022 Telephone encounter Nikolas Valenzuela MD Work Phone: Vascular Surgery Comment on above: Procedure Start: 06-12-2022 End: 06-12-2022 Patient encounter procedure Dakota Rajput MD Work Phone: Orthopaedics Comment on above: Chronic pain of left knee (Primary Dx); Post-traumatic osteoarthritis of left knee Start: 06-07-2022 Refill Ignacio Cheatham MD Work Phone: [facility] [place] Comment on above: Refill Request Start: 05-26-2022 End: 05-26-2022 Patient encounter procedure Goldy Hunter DO Work Phone: Kidney Medicine Comment on above: CKD (chronic kidney disease) stage 5, GFR less than 15 ml/min (HCC) (Primary Dx); Secondary renal hyperparathyroidism (HCC); Primary hypertension; Metabolic acidosis; Hyperlipidemia, unspecified hyperlipidemia type Start: 05-02-2022 Telephone encounter Kaylin Marcus [facility] Medicine Comment on above: CKD Follow Up (OTP) Start: 04-29-2022 Refill Ignacio Cheatham MD Work Phone: Family [facility] Comment on above: Refill Request Start: 04-18-2022 Telephone encounter Tyler hernandez DO Work Phone: Hematology/Oncology Comment on above: no show Start: 04-10-2022 End: 04-10-2022 Patient encounter procedure Reagan Riggs MD Work Phone: Orthopaedics Comment on above: Post-traumatic osteo arthritis of left knee (Primary Dx); Chronic pain of left knee; Type 2 diabetes mellitus with stage 4 chronic kidney disease, without long-term current use of insulin (HCC) Start: 04-10-2022 End: 04-10-2022 Subsequent hospital visit by physician Joni [facility] [place] Work Phone: Radiology Comment on above: Chronic pain of left knee [M25.562, G89.29] Screening breast exa mination [Z12.39] Start: 04-05-2022 Telephone encounter Hever Davis APRN.CNP Work Phone: [facility] Comment on above: Results Start: 04-02-2022 End: 04-02-2022 Patient encounter procedure Kirsten Euceda PA-C Work Phone: [facility] Comment on above: Urinary frequency (P rimary Dx) Iron malabsorption ( Primary Dx); Anemia due to stage 4 chronic kidney disease (HCC) Start: 04-02-2022 Telephone encounter Ignacio Cheatham MD Work Phone: Family [facility] [place] Comment on above: FMLA Paperwork ([employer] yonatan FMLA paperwork ) Start: 03-27-2022 [facility] Start: 03-25-2022 Orders Only Goldy Snyder Work Phone: Kidney Medicine Comment on above: Chronic kidney disea se, stage 4, severely decreased GFR (HCC) (Primary Dx) Start: 03-06-2022 Orders Only Tyler Snyder Work Phone: Hematology/Oncology Comment on above: Iron malabsorption ( Primary Dx); Chronic kidney disease (CKD), stage IV (severe) (HCC); Anemia due to stage 4 chronic kidney disease (HCC) Start: 03-05-2022 Telephone encounter Sha cardona CUSTOMS ENTRY CLERK.BENEFITS ADMINISTRATOR Work Phone: [facility] Comment on above: Results Start: 03-04-2022 End: 03-04-2022 Patient encounter procedure Hever Cheema CUSTOMS ENTRY CLERK.BENEFITS ADMINISTRATOR Work Phone: [facility] Comment on above: Viral URI with cough (Primary Dx) Start: 02-20-2022 End: 02-20-2022 ambulatory Injection Iam [facility] Work Phone: Hematology/Oncology Comment on above: CKD (chronic kidney disease) Stage 4, GFR 15-29 ml/min (Primary Dx) Start: 02-20-2022 End: 02-20-2022 Patient encounter procedure Frank Gerard Work Phone: Podiatry Comment on above: Repetitive stress in jury (Primary Dx); Other diabetic neurological complication associated with type 2 diabetes mellitus (HCC); Hammertoe of left foot; Callus Start: 02-18-2022 End: 02-18-2022 Subsequent hospital visit by physician Xr [facility] [place] Work Phone: Radiology Comment on above: Foot pain, left [M79 .672] Start: 02-18-2022 End: 02-18-2022 Patient encounter procedure Jimmy Rabago CUSTOMS ENTRY CLERK.BENEFITS ADMINISTRATOR Work Phone: [facility] Comment on above: Foot pain, left (Deandra nivia Dx) Start: 02-06-2022 ambulatory Ignacio Cheatham MD Work Phone: Family Medicine [place] Comment on above: Nausea Start: 02-04-2022 End: 02-04-2022 Patient encounter procedure Goldy Hunter DO Work Phone: Kidney Medicine Comment on above: CKD (chronic kidney disease) stage 4, GFR 15-29 ml/min (HCC) (Primary Dx); Anemia of renal disease; Secondary renal hyperparathyroidism (HCC); Primary hypertension; Hyperlipidemia, unspecified hyperlipidemia type; Metabolic acidosis Start: 01-24-2022 End: 01-24-2022 ambulatory Injection Iam [facility] [employer] Work Phone: Hematology/Oncology Comment on above: CKD (chronic kidney disease) Stage 4, GFR 15-29 ml/min (Primary Dx) Start: 01-13-2022 End: 01-13-2022 ambulatory Treatment Rm 10 [facility] [employer] Work Phone: Hematology/Oncology Comment on above: CKD (chronic kidney disease) Stage 4, GFR 15-29 ml/min (Primary Dx); Iron malabsorption; H/O gastric bypass Start: 01-10-2022 End: 01-10-2022 ambulatory Treatment Rm 3 [facility] [employer] Work Phone: Hematology/Oncology Comment on above: Anemia of renal dise ase (Primary Dx); CKD (chronic kidney disease) Stage 4, GFR 15-29 ml/min; Iron malabsorption; H/O gastric bypass Start: 01-08-2022 End: 01-08-2022 ambulatory Treatment Rm 3 [facility] [employer] Work Phone: Hematology/Oncology Comment on above: CKD (chronic kidney disease) Stage 4, GFR 15-29 ml/min (Primary Dx); Iron malabsorption; H/O gastric bypass Start: 12-30-2021 End: 12-30-2021 ambulatory Treatment Rm 8 [facility] [employer] Work Phone: Hematology/Oncology Comment on above: CKD (chronic kidney disease) Stage 4, GFR 15-29 ml/min (Primary Dx); Iron malabsorption; H/O gastric bypass Start: 12-24-2021 Telephone encounter Kaylin Saleh) [facility] Comment on above: Chronic Kidney Disea se (OTP - monthly touch point call ) Start: 12-19-2021 Get Medical Advice Ignacio Cheatham MD Work Phone: Family Medicine [place] Comment on above: Refills Results; Treatment P julia Start: 12-18-2021 End: 12-18-2021 ambulatory Teagan Spencer MD Work Phone: Hematology/Oncology Comment on above: Iron malabsorption ( Primary Dx); Anemia due to stage 4 chronic kidney disease (HCC) Start: 12-18-2021 End: 12-18-2021 Patient encounter procedure Teagan Spencer MD Work Phone: [facility] Start: 12-05-2021 End: 12-05-2021 Refill Ignacio Cheatham MD Work Phone: [facility] [place] Comment on above: Refill Request Chronic kidney disea se, stage 4, severely decreased GFR (HCC) (Primary Dx); Secondary renal hyperparathyroidism (HCC); Anemia of renal disease; Metabolic acidosis; Essential hypertension; Hyperlipidemia, unspecified hyperlipidemia type; Persistent proteinuria; Type 2 diabetes, controlled, with neuropathy (HCC) Start: 11-27-2021 Orders Only Fab Lynn i, APRN.BENEFITS ADMINISTRATOR Work Phone: Kidney Medicine Comment on above: Chronic Kidney Disea se (Monthly Touch Point Call - OTP) Start: 11-25-2021 Refill Rojelio Clark MD Work Phone: Endocrinology Comment on above: Refill Request Start: 11-20-2021 End: 11-20-2021 ambulatory Respiratory Therapist [facility] Work Phone: Pulmonary Medicine Comment on above: Spirometry Start: 11-20-2021 End: 11-20-2021 Patient encounter procedure Respiratory Therapist [facility] Work Phone: [facility] Start: 10-28-2021 End: 10-28-2021 Nursing evaluation of patient and report Son Turpin RN Work Phone: Endocrinology Comment on above: Poorly controlled ty pe 2 diabetes mellitus (HCC) Poorly controlled ty pe 2 diabetes mellitus (HCC) (Primary Dx) Start: 10-28-2021 End: 10-28-2021 ambulatory [facility] [place] Work Phone: Pulmonary Lab Comment on above: Spirometry Start: 10-28-2021 End: 10-28-2021 Patient encounter procedure Pulm [facility] [place] Work Phone: [facility] Start: 10-15-2021 End: 10-15-2021 Patient encounter procedure Sha Cory MULLER Work Phone: [facility] Comment on above: Viral illness (Prima ry Dx) Start: 10-02-2021 End: 10-02-2021 Patient encounter procedure Rojelio Clark MD Work Phone: Endocrinology Comment on above: Poorly controlled ty pe 2 diabetes mellitus (HCC) (Primary Dx) Start: 09-30-2021 Telephone encounter Karly Wlels RN T [facility] operated [facility] Comment on above: Follow Up Start: 09-14-2021 End: 09-14-2021 Patient encounter procedure Ignacio Cheatham MD Work Phone: [facility] [place] Comment on above: Type 2 diabetes, con trolled, with neuropathy (HCC) (Primary Dx); Essential hypertension; Lung nodule; Type 2 diabetes mellitus with stage 4 chronic kidney disease, without long-term current use of insulin (HCC); CKD (chronic kidney disease) Stage 4, GFR 15-29 ml/min; Other iron deficiency anemia; Bipolar affective disorder, remission status unspecified (HCC); Dental infection Start: 08-26-2021 End: 08-26-2021 Patient encounter procedure Jonathan Valenzuela MD Work Phone: Vascular Surgery Comment on above: ESRD on dialysis (HC C) (Primary Dx) Start: 08-23-2021 ambulatory Ignacio Cheatham MD Work Phone: [facility] [place] Comment on above: Work accommodation Start: 08-21-2021 Telephone encounter Ignacio Cheatham MD Work Phone: [facility] [place] Comment on above: Forms Start: 08-19-2021 Telephone encounter Karly Beasley [facility] Comment on above: Results Start: 08-15-2021 End: 08-15-2021 Patient encounter status Card Injection Molecular Imagi ng Start: 08-15-2021 End: 08-15-2021 Subsequent hospital visit by physician Card Injection Molecular Imaging Comment on above: Pre-transplant evalu ation for chronic kidney disease [Z01.818] Start: 08-13-2021 Orders Only Jonathan Valenzuela MD Work Phone: Vascular Surgery Comment on above: CKD (chronic kidney disease) stage 5, GFR less than 15 ml/min (HCC) (Primary Dx) Start: 08-12-2021 End: 08-12-2021 Patient encounter procedure Jonathan Valenzuela MD Work Phone: Vascular Surgery Comment on above: CKD (chronic kidney disease) stage 5, GFR less than 15 ml/min (HCC) (Primary Dx) Start: 08-01-2021 Telephone encounter Ignacio Cheatham MD Work Phone: [facility] Comment on above: Patient Question Start: 08-01-2021 End: 08-01-2021 Patient encounter procedure Fab Cochran APRN.BENEFITS ADMINISTRATOR Work Phone: Kidney Medicine Comment on above: Stage 5 chronic kidn ey disease not on chronic dialysis (HCC) (Primary Dx); Secondary renal hyperparathyroidism (HCC); Metabolic acidosis; Anemia of renal disease; Essential hypertension; Hyperlipidemia, unspecified hyperlipidemia type; Vitamin D deficiency; Persistent proteinuria; Hyperphosphatemia Start: 07-30-2021 End: 07-30-2021 Patient encounter procedure Ignacio Cheatham MD Work Phone: [facility] Comment on above: Hypotension, unspeci fied hypotension type (Primary Dx); CKD (chronic kidney disease) Stage 4, GFR 15-29 ml/min; Type 2 diabetes mellitus with stage 4 chronic kidney disease, without long-term current use of insulin ([facility]) Start: 07-30-2021 Telephone encounter Goldy Hernandez ceballos DO Work Phone: [facility] Comment on above: Patient Update Start: 07-29-2021 End: 07-29-2021 Emergency department patient visit [facility] Start: 07-29-2021 ambulatory Chrissy [facility] Comment on above: Dizziness (low blood pressure, abdominal pain) Start: 07-26-2021 Refill Ignacio Cheatham MD Work Phone: [facility] [place] Comment on above: Refill Request Start: 07-23-2021 Telephone encounter Ignacio Cheatham MD Work Phone: Family Medicine [place] Comment on above: Nurse Triage Call Start: 07-18-2021 ambulatory Goldy Booker O Work Phone: [facility] Comment on above: Glucose monitor Start: 07-18-2021 Patient encounter procedure Vinay Hunter DO Work Phone: Kidney Medicine Comment on above: Appointment Start: 07-03-2021 End: 07-03-[address] Nutrition Therapy Comment on above: Patient Education; A ssessment Start: 07-03-2021 End: 07-03-2021 Subsequent hospital visit by physician Ct 2 Main Qb (I-Stat) Radiology Comment on above: Pre-transplant evalu ation for kidney transplant [Z01.818] Start: 07-03-2021 End: 07-03-2021 Patient encounter procedure Pre Tx Group Education Work Phone: Transplant Center Comment on above: Pre-transplant evalu ation for kidney transplant (Primary Dx) CKD (chronic kidney disease) stage 4, GFR 15-29 ml/min ([facility]); Pre-transplant evaluation for chronic kidney disease; Diabetic nephropathy associated with type 2 diabetes mellitus (HCC) Pre-transplant evalu ation for ESRD (end stage renal disease) (Primary Dx) Pre-transplant evalu ation for CKD (chronic kidney disease) (Primary Dx); CKD (chronic kidney disease), stage IV (HCC); Patient awaiting renal transplant; Personal history of DVT (deep vein thrombosis); H/O gastric bypass Start: 07-03-2021 End: 07-03-2021 Patient encounter status [facility] Work Phone: Transplant Center Start: 06-28-2021 End: 06-28-2021 Patient encounter procedure Rojelio Clark MD Work Phone: Endocrinology Comment on above: Type 2 diabetes dion itus with stage 4 chronic kidney disease, without long-term current use of insulin (HCC) (Primary Dx) Start: 06-26-2021 End: 06-26-2021 Patient encounter procedure Ignacio Cheatham MD Work Phone: Family Medicine [place] Comment on above: Type 2 diabetes, con trolled, with neuropathy (HCC) (Primary Dx); Essential hypertension; CKD (chronic kidney disease) Stage 4, GFR 15-29 ml/min; Type 2 diabetes mellitus with stage 4 chronic kidney disease, without long-term current use of insulin (HCC); Bipolar affective disorder, remission status unspecified (HCC); Proliferative diabetic retinopathy associated with type 2 diabetes mellitus, unspecified laterality, unspecified proliferative retinopathy type (HCC); Anxiety with depression; Screening breast examination; Fibromyalgia Start: 06-26-2021 Telephone encounter Khushboo [facility] Comment on above: Appointment Start: 06-11-2021 ambulatory Ignacio Cheatham MD Work Phone: Internal Medicine [facility] [place] Start: 06-06-2021 Telephone encounter Ignacio Cheatham MD Work Phone: [facility] [place] Comment on above: Results Start: 06-05-2021 Telephone encounter Ignacio Cheatham MD Work Phone: [facility] [place] Comment on above: Results Start: 06-03-2021 End: 06-03-2021 Patient encounter procedure Stacy Schmitz PA-C Work Phone: [facility] Comment on above: Vomiting and diarrhe a (Primary Dx); Nausea Start: 10-31-2020 End: 10-31-2020 Subsequent hospital visit by physician Joni [facility] [place] Work Phone: Radiology Comment on above: Neck pain [M54.2] Start: 01-23-2020 Patient encounter procedure SELF ANGÉLICA F Facility:[facility] Start: 03-19-2018 Ambulatory [facility] Facility :[facility] Start: 07-23-2017 End: 07-23-2017 Emergency department patient visit GRACIELA MITCHELL Facility:B Start: 03-19-2017 Ambulatory [facility] Facility :[facility] Start: 03-09-2008 End: 04-16-2017 Patient encounter status Dorene Murillo MD Work Phone: [facility] Procedures Date Procedure Procedure Detail Performing Clinician Start: 09-06-2024 CT angiography of ch est with contrast Dr. Ignacio Cheatham MD Work Phone: Start: 09-06-2024 Plain chest X-ray Dr. Halley Cheatham MD Work Phone: Start: 09-06-2024 D-dimer assay, quantitative Dr. Ignacio Cheatham MD Work Phone: Comment on above: D-Dimer ELEVATED (>0 .49): Additional studies and clinicalassessments are indicated to conclude diagnosis of:Deep Vein Thrombosis (DVT) or Pulmonary Embolism (PE)CRITICAL VALUE CALLED TO BONY [id number] Laine Leblanc.RESULTS READ BACK BY SAME. Start: 09-06-[address] Ignacio Cheatham MD Work Phone: Start: 12-30-2023 Radiologic examinati on knee 1/2 views Dorene Murillo MD Work Phone: Start: 12-21-2023 Arthrocentesis aspir &/inj major jt/bursa w/o us Dorene Murillo MD Work Phone: Start: 12-11-2023 [facility] COVI D-19 VACCINE AGE 12+ YR (COMIRNATY) Tresa Marcum CUSTOMS ENTRY CLERK.BENEFITS ADMINISTRATOR Work Phone: Start: 09-18-2023 Radiologic examinati on knee 1/2 views Dorene Murillo MD Work Phone: Start: 07-09-2023 Radiologic examinati on knee 1/2 views Dorene Murillo MD Work Phone: Start: 06-09-2023 Plain X-ray of tibia and fibula Start: 06-04-2023 Plain X-ray of tibia and fibula Start: 06-04-2023 Radiologic examination of knee Start: 03-17-2023 Radex ankle complete minimum 3 views Sha Rya CUSTOMS ENTRY CLERK.BENEFITS ADMINISTRATOR Work Phone: Start: 03-09-2023 Plain X-ray of tibia and fibula Dr. Ignacio Cheatham Work Phone: Start: 03-09-2023 Radiologic examination of knee Dr. Ignacio Cheatham Work Phone: Start: 03-09-2023 X-ray of both feet Dr. Ignacio Cheatham Work Phone: Start: 02-09-[address] Julius Cheatham Work Phone: Start: 01-29-[address] Ignacio Cheatham Work Phone: Start: 01-21-2023 End: 01-21-2023 Plain X-ray of tibia and fibula Dr. Ignacio Cheatham Work Phone: Start: 01-21-2023 Fluoroscopic guidance Jhony Cheatham Work Phone: Start: 01-21-2023 Intramedullary naili ng of tibia Dr. Ignacio Cheatham Work Phone: Start: 01-19-2023 MRI of lower extremity Dr. Ignacio Cheatham Work Phone: Start: 01-19-2023 Pelvis X-ray Dr. Viky Cheatham Work Phone: Start: 01-19-2023 Plain X-ray of femur Dr Annika Cheatham Work Phone: Start: 01-19-2023 Plain X-ray of tibia and fibula Dr. Ignacio Cheatham Work Phone: Start: 01-19-[address] Ignacio Cheatham Work Phone: Start: 01-19-2023 Radiologic examination of knee Dr. Ignacio Cheatham Work Phone: Start: 01-13-2023 Plain X-ray of tibia and fibula Dr. Ignacio Cheatham Work Phone: Start: 12-15-2022 Radiologic examinati on tibia & fibula 2 views Reagan Riggs MD Work Phone: Start: 11-19-2022 Urnls dip stick/tabl et rgnt auto w/o microscopy Kirsten Euceda PA-C Work Phone: Start: 11-10-2022 Radiologic examinati on tibia & fibula 2 views Reagan Riggs MD Work Phone: Start: 10-30-2022 Plain chest X-ray Dr. Halley Cheatham Work Phone: Start: 10-15-2022 Plain X-ray of tibia and fibula Dr. Ignacio Cheatham Work Phone: Start: 10-15-2022 X-ray of both feet Dr. Ignacio Cheatham Work Phone: Start: 09-12-2022 MRI of lower extremity Dr. Ignacio Cheatham Work Phone: Start: 09-10-2022 MRI of lumbar spine Dr. Ignacio Cheatham Work Phone: Start: 09-10-[address]22 CT of lumbar spine Dr. Ignacio Cheatham Work Phone: Start: 09-10-2022 Plain x-ray of pelvi s and lower extremity Dr. Ignacio Cheatham Work Phone: Start: 09-07-2022 Radiologic examination of knee Start: 08-21-2022 Radiologic exam ches t single view Goldy Hunter DO Work Phone: Start: 08-11-2022 Radex elbow 2 views Charly Cheatham MD Work Phone: Start: 07-24-2022 Antibody screen UNKNOWN PROVIDER Comment on above: Order Comment: Speci men Type: BLOOD SPECIMEN Ordering Facility: [facility] Address: [address] [place] [address] Performed By: #### % CORDELL, TSCR, [id number] #### [facility] [place] [id number] [address] [place] [address] [place] Start: 06-24-2022 Urnls dip stick/tabl et rgnt auto w/o microscopy Kirsten Euceda PA-C Work Phone: Start: 04-10-2022 Radiologic exam knee complete 4/more views Ignacio Cheatham MD Work Phone: Start: 04-10-2022 End: 04-10-2022 Mammography Ignacio Cheatham MD Work Phone: Start: 04-02-2022 Urnls dip stick/tabl et rgnt auto w/o microscopy Kirsten Euceda PA-C Work Phone: Start: 03-04-2022 COVID WITH FLUA+B, ROUTINE Hever Cheema CUSTOMS ENTRY CLERK.BENEFITS ADMINISTRATOR Work Phone: Start: 02-18-2022 Radex foot complete minimum 3 views Jimmy Rabago CUSTOMS ENTRY CLERK.BENEFITS ADMINISTRATOR Work Phone: Start: 11-20-2021 Co diffusing capacity M paula Macias MD Work Phone: Start: 10-28-2021 Brncdilat rspse spmt ry pre&post-brncdilat admn Dorene Macias MD Work Phone: Start: 09-14-2021 Adult depression scr eening assessment Ignacio Cheatham MD Work Phone: Start: 07-03-2021 Ct abdomen & pelvis w/o contrast material Linda Livingston MD Work Phone: Start: 10-31-2020 End: 10-31-2020 Radex spine cervical 4 or 5 views Ignacio Cheatham MD Work Phone: Start: 08-15-2020 Mammography Stacy Schmitz PA-C Work Phone: Start: 05-12-2018 Adult depression scr eening assessment Stacy Schmitz PA-C Work Phone: Start: 07-02-2015 Colonoscopy Stacy Schmitz PA-C Work Phone: Plan of Treatment Date Care Activity Detail Author Start: 11-25-2026 DTaP/Tdap/Td Vaccines (3 - Td or Tdap) DTaP/Tdap/Td Vaccines (3 - Td or Tdap) [facility] Start: 11-25-2026 Urine microalbumin profile [facility] Start: 08-15-2025 HPV TESTING HPV TESTING [facility] Start: 08-15-2025 PAP TESTING PAP TESTING [facility] Start: 08-15-2025 Screening for malignant neoplasm of cervix [facility] Start: 07-11-2025 Glaucoma screening Dilated Retinal Exam [facility] Start: 07-01-2025 Colonoscopy COLONOSCOPY [facility] Start: 07-01-2025 COLORECTAL CANCER SCREENING COLORECTAL CANCER SCREENING [facility] Start: 07-01-2025 Screening for malignant neoplasm of colon [facility] Start: 06-01-2025 Annual PCP Team Chronic Disease Visit Annual PCP Team Chronic Disease Visit [facility] Start: 2025 RSV Immunization aged 60 or older (1 - 1-dose 60+ series) RSV Immunization aged 60 or older (1 - 1-dose 60+ series) [facility] Start: 03-25-2025 Annual PCP Team Chronic Disease Visit Annual PCP Team Chronic Disease Visit [facility] Start: 01-29-2025 End: 08-29-2025 CT Chest WO contrast CT CHEST WO IVCON Radiology Routine Lung nodules Expected: 01/29/2025, Expires: 08/29/2025 [facility] Work Phone: Comment on above: Expected: 01/29/2025, Expires: Start: 01-18-2025 End: 01-18-2025 Patient encounter procedure 01/18/2025 1:30 PM EST Office Visit Pulmonary Medicine [address] [place] [address] Smiley Slaughter APRN.BENEFITS ADMINISTRATOR [address] [place] [address] 6 MTH F/U Pulmonary Medicine Comment on above: 6 MTH F/U Start: 01-13-2025 End: 01-13-2025 Patient encounter procedure 01/13/2025 2:15 PM EST Office Visit [facility] Ophthalmology [address] [place] [address] Gege Mccrary, OD [address] [place] [address] Return 6 months for diabetic eye exam Ophthalmology Comment on above: Return 6 months for diabetic eye exam Start: 01-09-2025 End: 10-12-2025 CT Chest WO contrast CT CHEST WO IVCON Radiology Routine Lung nodules Expected: 01/09/2025, Expires: 10/12/2025 [facility] Work Phone: Comment on above: Expected: 01/09/2025, Expires: Start: 01-09-2025 End: 01-09-2025 Patient encounter procedure 01/09/2025 1:20 PM EST Appointment Cat Scan [address] [place], [place] [id number] CT CHEST Cat Scan Comment on above: CT CHEST Start: 12-24-2024 Annual PCP Team Chronic Disease Visit Annual PCP Team Chronic Disease Visit [facility] Start: 12-24-2024 Anxiety Screening Anxiety Screening [facility] Comment on above: Postponed from 05/31/1983 (Declined at t his time) Start: 12-24-2024 BP Controlled (<130/80) BP Controlled (<130/80) [facility] in Start: 12-24-2024 Hepatitis A Vaccine (1 of 2 - Risk 2-dose series) Hepatitis A Vaccine (1 of 2 - Risk 2-dose series) [facility] Comment on above: Postponed from 1984 (Declined at t his time) Start: 12-24-2024 Shingrix Vaccine (1 of 2) Shingrix Vaccine (1 of 2) [facility] Comment on above: Postponed from 1984 (Declined at t his time) Start: 12-10-2024 Annual PCP Team Chronic Disease Visit Annual PCP Team Chronic Disease Visit [facility] Start: 12-10-2024 Diabetic foot examination Diabetic Foot Exam [facility] Start: 11-14-2024 End: 11-14-2024 Patient encounter procedure 11/14/2024 3:40 PM EDT Office Visit Neurology [address] [place], [place] [id number] Ignacio Barton Jr., MD [address] [place] [address] Dx: TIA (transient ischemic attack) [G45.9] Neurology Comment on above: Dx: TIA (transient ischemic attack) [G45 .9] Start: 10-31-2024 Influenza vaccination Influenza Vaccine (#1) [facility] Start: 10-03-2024 End: 10-03-2024 Patient encounter procedure 10/03/2024 10:50 AM EDT Appointment Mammogram [address] [place] [address] Mammogram Start: 09-19-2024 End: 09-19-2024 Patient encounter procedure Neurology Comment on above: 31 - 90 day follow up Start: 09-12-2024 End: 09-12-2024 Patient encounter procedure 09/12/2024 1:30 PM EDT Office Visit Pulmonary Medicine [address] [place] [address] Liz Ferreira MD [address] [place] [address] lung nodules Pulmonary Medicine Comment on above: lung nodules Start: 09-07-2024 End: 09-07-2024 Patient encounter procedure [facility] [place] Comment on above: 3 month follow up 3 month follow up/A1 C care gap Start: 09-06-2024 [facility] Start: 09-06-2024 [facility] Start: 08-29-2024 End: 08-29-2024 ambulatory 08/29/2024 11:00 AM EDT Education Endocrinology [address] [place] [address] June Scott, RD [address] [address] DIETITIAN Endocrinology Comment on above: DIETITIAN Start: 08-26-2024 End: 08-26-2024 Admission to same day surgery center [facility] Mechanical Maintenance Worker Comment on above: INTRO NEEDLE/CATH 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 SYSTEMS DESIGNER AV FISTULA UPP ER EXTREMITY VENOUS SIDE W/ANGIO,FLUORO GUIDED,INCLUSIVE OF RAD S&I Start: 08-26-2024 End: 08-26-2024 Intro cath dialysis circuit w/trluml balo angiop INTRO NEEDLE/CATH FOR SYSTEMS DESIGNER AV FISTULA UPPER EXTREMITY VENOUS SIDE W/ANGIO,FLUORO GUIDED,INCLUSIVE OF RAD S&I ESRD (end stage renal disease) ([facility]) 08/26/2024 10:30 AM EDT ME CATH Start: 08-26-2024 Subsequent hospital visit by physician [facility] Mechanical Maintenance Worker Comment on above: ESRD (end stage renal disease) ([facility]) [N1 8.6] Start: 08-19-2024 End: 08-19-2024 Admission to same day surgery center 08/19/2024 12:30 PM EDT - 08/19/2024 2:08 PM EDT Surgery [facility] Mechanical Maintenance Worker [address] [place] [address] Saira Jackson, DO [address] [place] [address] INTRO NEEDLE/CATH FOR SYSTEMS DESIGNER AV FISTULA UPPER EXTREMITY VENOUS SIDE W/ANGIO,FLUORO GUIDED,INCLUSIVE OF RAD S&I [facility] Mechanical Maintenance Worker Comment on above: INTRO NEEDLE/CATH FOR SYSTEMS DESIGNER AV FISTULA UPP ER EXTREMITY VENOUS SIDE W/ANGIO,FLUORO GUIDED,INCLUSIVE OF RAD S&I Start: 08-19-2024 End: 08-19-2024 Intro cath dialysis circuit w/trluml balo angiop INTRO NEEDLE/CATH FOR SYSTEMS DESIGNER AV FISTULA UPPER EXTREMITY VENOUS SIDE W/ANGIO,FLUORO GUIDED,INCLUSIVE OF RAD S&I ESRD (end stage renal disease) ([facility]) 08/19/2024 12:30 PM EDT ME CATH Start: 08-19-2024 Subsequent hospital visit by physician 08/19/2024 12:30 PM EDT Hospital Encounter [facility] Mechanical Maintenance Worker [address] [place] [address] Saira Jackson, DO [address] [place] [address] ESRD (end stage renal disease) ([facility]) [N18.6] [facility] Mechanical Maintenance Worker Comment on above: ESRD (end stage renal disease) ([facility]) [N1 8.6] Start: 08-08-2024 End: 08-08-2024 Patient encounter procedure 08/08/2024 2:45 PM EDT Office Visit [facility] [address] [place] [address] Dorene Murillo MD [address] [address] Reason for visit: One of the screws is coming out [facility] Comment on above: Reason for visit: One of the screws is c oming out Start: 08-04-2024 Complete blood count Hemoglobin/Hematocrit [facility] Start: 08-04-2024 Creatinine measurement Serum Creatinine [facility] Start: 08-04-2024 End: 08-04-2024 Patient encounter procedure 08/04/2024 1:00 PM EDT Office Visit [facility] [address] [place] [address] Efra Galarza APRN.BENEFITS ADMINISTRATOR [address] [place] [address] Dx: Spinal stenosis of lumbar region, unspecified whether neurogenic claudication present [M48.061] [facility] Comment on above: Dx: Spinal stenosis of lumbar region, un specified whether neurogenic claudication present [M48.061] Start: 08-01-2024 End: 08-01-2024 ambulatory 08/01/2024 2:00 PM EDT Education Endocrinology [address] [facility] [place] [address] June Scott, RD [address] [id number] DIETITIAN Endocrinology Comment on above: DIETITIAN Start: 07-28-2024 Complete blood count Hemoglobin/Hematocrit [facility] Start: 07-28-2024 Creatinine measurement Serum Creatinine [facility] Start: 07-27-2024 End: 07-27-2024 Patient encounter procedure 07/27/2024 3:30 PM EDT Office Visit [facility]culary Surgery [address] [facility] [place] [address] Stenosis of arteriovenous graft, 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] Vasculary Surgery Comment on above: Stenosis of arteriovenous graft, 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] Start: 07-27-2024 End: 07-27-2024 Patient encounter procedure 07/27/2024 2:20 PM EDT Appointment Cat Scan [address] [place] [address] Lung nodules [R91.8] Cat Scan Comment on above: Lung nodules [R91.8] Start: 07-11-2024 End: 07-11-2024 Patient encounter procedure Ophthalmology Comment on above: eye exam Reason for visit: On e of the screws is coming out Start: 07-06-2024 End: 07-06-2024 Patient encounter procedure 07/06/2024 2:00 PM EDT Office Visit Endocrinology [address] [facility] [place] [address] Trinidad Frazier, CUSTOMS ENTRY CLERK.BENEFITS ADMINISTRATOR [address] [place] [address] Type 2 diabetes, controlled, 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] Endocrinology Comment on above: Type 2 diabetes, controlled, with neurop athy (HCC) [E11.40] Start: 07-04-2024 End: 07-04-2024 Patient encounter procedure 07/04/2024 2:30 PM EDT Office Visit Neurology [address] [place] [address] Alondra Chung, PATRICE.BENEFITS ADMINISTRATOR [address] [address] CASSIE (obstructive sleep apnea) [G47.3 Neurology Comment on above: CASSIE (obstructive sleep apnea) [G47.3 Start: 07-01-2024 End: 07-01-2024 Patient encounter procedure 07/01/2024 9:40 AM EDT Office Visit [facility] [address] [place] [address] Ignacio Cheatham MD [address] [place] [address] 6 month follow up [facility] Comment on above: 6 month follow up Start: 06-30-2024 Complete blood count Hemoglobin/Hematocrit [facility] Start: 06-16-2024 Complete blood count Hemoglobin/Hematocrit [facility] Start: 06-16-2024 Creatinine measurement Serum Creatinine [facility] Start: 06-10-2024 Complete blood count Hemoglobin/Hematocrit [facility] Start: 06-10-2024 Creatinine measurement Serum Creatinine [facility] Start: 06-01-2024 End: 08-31-2024 CBC W Auto Differential panel - Blood COMPLETE BLOOD COUNT AND DIFFERENTIAL Lab Routine Primary hypertension Expected: 06/01/2024, Expires: 08/31/2024 [facility] Comment on above: Expected: 06/01/2024, Expires: Start: 06-01-2024 End: 08-31-2024 Comprehensive metabolic 2000 panel - Serum or Plasma COMPREHENSIVE METABOLIC PANEL Lab Routine Primary hypertension Mixed hyperlipidemia Expected: 06/01/2024, Expires: 08/31/2024 [facility] Comment on above: Expected: 06/01/2024, Expires: Start: 06-01-2024 End: 08-31-2024 Hemoglobin A1c in Blood HEMOGLOBIN A1C Lab Routine Type 2 diabetes, controlled, with neuropathy (HCC) Expected: 06/01/2024, Expires: 08/31/2024 [facility] Work Phone: Comment on above: Expected: 06/01/2024, Expires: Start: 06-01-2024 End: 08-31-2024 Lipid 1996 panel - Serum or Plasma LIPID PANEL, FASTING Lab Routine Mixed hyperlipidemia Expected: 06/01/2024, Expires: 08/31/2024 [facility] Comment on above: Expected: 06/01/2024, Expires: Start: 06-01-2024 End: 08-31-2024 Magnesium [Mass/volume] in Serum or Plasma MAGNESIUM Lab Routine Primary hypertension Gastroesophageal reflux disease, unspecified whether esophagitis present Expected: 06/01/2024, Expires: 08/31/2024 [facility] Comment on above: Expected: 06/01/2024, Expires: Start: 06-01-2024 End: 06-01-2024 Patient encounter procedure 06/01/2024 1:40 PM EDT Office Visit Family Sheila Morse [address] [facility] [place] [place] [address] Tresa Marcum APRN.BENEFITS ADMINISTRATOR [address] [facility] [place] [address] rescheduled from 07/01 Family Sheila Morse Comment on above: rescheduled from 07/01 Start: 04-30-2024 Glaucoma screening Dilated Retinal Exam [facility] Start: 04-01-2024 End: 04-01-2024 Patient encounter procedure 04/01/2024 11:00 AM EST Office Visit Neurology [address] [facility] [address] Alondra Chung APRN.BENEFITS ADMINISTRATOR [address] [place] [address] CASSIE (obstructive sleep apnea) [G47.3 Neurology Comment on above: CASSIE (obstructive sleep apnea) [G47.3 Start: 03-25-2024 End: 06-24-2024 Hemoglobin A1c in Blood HEMOGLOBIN A1C Lab Routine Primary hypertension Type 2 diabetes mellitus with stage 4 chronic kidney disease, without long-term current use of insulin (HCC) Expected: 03/25/2024, Expires: 06/24/2024 [facility] Work Phone: Comment on above: Expected: 03/25/2024, Expires: Start: 03-25-2024 End: 06-24-2024 Lipid 1996 panel - Serum or Plasma LIPID PANEL BASIC Lab Routine Primary hypertension Type 2 diabetes mellitus with stage 4 chronic kidney disease, without long-term current use of insulin (HCC) Expected: 03/25/2024, Expires: 06/24/2024 [facility] Comment on above: Expected: 03/25/2024, Expires: Start: 03-13-2024 Annual PCP Team Chronic Disease Visit Annual PCP Team Chronic Disease Visit [facility] Start: 03-02-2024 Medicare Advantage Annual Wellness Visit Medicare Advantage Annual Wellness Visit [facility] Start: 02-09-2024 End: 02-09-2024 Patient encounter procedure 02/09/2024 11:00 AM EST Office Visit Vascular Surgery [address] [place] [address] Saira Jackson, DO [address] [place] [address] ESRD (end stage renal disease) (HCC) [N18.6 Vascular Surgery Comment on above: ESRD (end stage renal disease) (HCC) [N1 8.6 Start: 01-27-2024 End: 01-27-2024 Patient encounter procedure 01/27/2024 10:15 AM EST Office Visit Endocrinology [address] [place], [place] [address] Trinidad Frazier APRN.BENEFITS ADMINISTRATOR [address] [place] [address] Type 2 diabetes, controlled, 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 [address] [place], [place] [id number] [facility] [address] [place] [address] Type 2 diabetes, controlled, 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 [facility] Comment on above: Type 2 diabetes, controlled, with neurop athy (HCC) [E11.4 Start: 01-05-2024 End: 01-05-2024 Patient encounter procedure 01/05/2024 10:00 AM EST Office Visit Neurology [address] [place] [address] CASSIE (obstructive sleep apnea) [G47.33] Neurology Comment on above: CASSIE (obstructive sleep apnea) [G47.33] Start: 12-25-2023 Depression Screening Depression Screening [facility] Comment on above: Postponed from 05/31/1983 (Declined at t his time) Start: 12-25-2023 End: 12-25-2023 Patient encounter procedure 12/25/2023 9:40 AM EDT Office Visit [facility] [address] [place], [place] [phone] Ignacio Cheatham MD [address] [place], [place] [phone] [facility] Comment on above: Medication renewal Start: 12-21-2023 End: 12-21-2023 Patient encounter procedure 12/21/2023 3:15 PM EDT Office Visit [facility] [address] [place] [address] Dorene Murillo MD [address] [place] [address] rt tibiax [facility] Comment on above: rt tibiax Start: 12-17-2023 End: 12-17-2023 Patient encounter procedure 12/17/2023 2:15 PM EDT Office Visit [facility] [address] [place] [address] Dorene Murillo MD [address] [place] [address] rt tibiax [facility] Comment on above: rt tibiax Start: 12-11-2023 End: 03-11-2024 CBC W Auto Differential panel - Blood COMPLETE BLOOD COUNT AND DIFFERENTIAL Lab Routine ESRD (end stage renal disease) (HCC) Expected: 12/11/2023, Expires: 03/11/2024 [facility] Comment on above: Expected: 12/11/2023, Expires: Start: 12-11-2023 End: 03-11-2024 Comprehensive metabolic 2000 panel - Serum or Plasma COMPREHENSIVE METABOLIC PANEL Lab Routine Type 2 diabetes mellitus with stage 4 chronic kidney disease, without long-term current use of insulin (HCC) Expected: 12/11/2023, Expires: 03/11/2024 [facility] Comment on above: Expected: 12/11/2023, Expires: Start: 12-11-2023 End: 03-11-2024 Hemoglobin A1c in Blood HEMOGLOBIN A1C Lab Routine Type 2 diabetes mellitus with stage 4 chronic kidney disease, without long-term current use of insulin (HCC) Expected: 12/11/2023, Expires: 03/11/2024 [facility] Comment on above: Expected: 12/11/2023, Expires: Start: 12-11-2023 End: 03-11-2024 Lipid 1996 panel - Serum or Plasma LIPID PANEL BASIC Lab Routine Mixed hyperlipidemia Expected: 12/11/2023, Expires: 03/11/2024 [facility] Work Phone: Comment on above: Expected: 12/11/2023, Expires: Start: 12-11-2023 End: 03-11-2024 Magnesium [Mass/volume] in Serum or Plasma MAGNESIUM Lab Routine Gastroesophageal reflux disease, unspecified whether esophagitis present Expected: 12/11/2023, Expires: 03/11/2024 [facility] Comment on above: Expected: 12/11/2023, Expires: Start: 12-11-2023 End: 12-11-2023 Patient encounter procedure 12/11/2023 11:20 AM EDT Office Visit [facility] [place] [address] [place], [place] [phone] Tresa Marcum APRN.BENEFITS ADMINISTRATOR [address] [place], [place] [phone] [facility] f/u for R knee surgery and infection. See TE 12/07/23. [facility] [place] Comment on above: [facility] f/u for R knee surgery and infection. See TE 12/07/23. Start: 11-11-2023 Complete blood count Hemoglobin/Hematocrit [facility] Start: 11-11-2023 Creatinine measurement Serum Creatinine [facility] Start: 11-11-2023 HEMOGLOBIN/HEMATOCRIT HEMOGLOBIN/HEMATOCRIT [facility] Start: 11-11-2023 Serum Creatinine Serum Creatinine [facility] Start: 11-08-2023 ANNUAL PCP TEAM CHRONIC DISEASE VISIT ANNUAL PCP TEAM CHRONIC DISEASE VISIT [facility] Start: 11-03-2023 End: 11-03-2023 Patient encounter procedure 11/03/2023 1:00 PM EDT Office Visit [facility] [address] [place], [place] [address] Gege Mccrary, OD [address] [place] [address] dilated retinal exam Ophthalmology Comment on above: dilated retinal exam Start: 11-01-2023 Covid-19 Vaccine ( season) Covid-19 Vaccine ( season) [facility] Start: 11-01-2023 Influenza vaccination [facility] Start: 10-21-2023 ANNUAL PCP TEAM CHRONIC DISEASE VISIT ANNUAL PCP TEAM CHRONIC DISEASE VISIT [facility] Start: 10-15-2023 End: 10-15-2023 Patient encounter procedure 10/15/2023 9:15 AM EDT Office Visit Podiatry [address] [place], [place] [address] Frank Gerard [address] [facility] [address] [place], [place] [phone] Right ankle and foot pain (bruising)-XRAY in [facility] Podiatry Comment on above: Right ankle and foot pain (bruising)-XRA Y in [facility] Start: 10-05-2023 End: 05-05-2024 Ct thorax w/o contrast material CT CHEST WO IVCON Radiology Routine Lung nodules Expected: 10/05/2023, Expires: 05/05/2024 [facility] Work Phone: Comment on above: Expected: 10/05/2023, Expires: Start: 09-14-2023 End: 09-14-2023 Patient encounter procedure 09/14/2023 9:45 AM EDT Office Visit [facility] [address] [place] [address] Dorene Murillo MD [address] [address] post op rt tibiax sx 06/12/23 [facility] Comment on above: post op rt tibiax sx 06/12/23 Start: 09-10-2023 ANNUAL PCP TEAM CHRONIC DISEASE VISIT ANNUAL PCP TEAM CHRONIC DISEASE VISIT [facility] Start: 08-27-2023 HEMOGLOBIN/HEMATOCRIT HEMOGLOBIN/HEMATOCRIT [facility] Start: 08-27-2023 Hepatitis B surface antibody level LDL CHOLESTEROL [facility] Start: 08-27-2023 SERUM CREATININE SERUM CREATININE [facility] Start: 08-22-2023 HEMOGLOBIN/HEMATOCRIT HEMOGLOBIN/HEMATOCRIT [facility] Start: 08-22-2023 SERUM CREATININE SERUM CREATININE [facility] Start: 08-17-2023 End: 08-17-2023 Patient encounter procedure 08/17/2023 11:30 AM EDT Office Visit [facility] [address] [place] [address] Dorene Murillo MD [address] [place] [address] rt tibia sx 06/12/23 [facility] Comment on above: rt tibia sx 06/12/23 Start: 08-12-2023 ANNUAL PCP TEAM CHRONIC DISEASE VISIT ANNUAL PCP TEAM CHRONIC DISEASE VISIT [facility] Start: 08-12-2023 Hemoglobin A1c measurement Diabetes: Hemoglobin A1C [facility] Start: 08-12-2023 HEMOGLOBIN/HEMATOCRIT HEMOGLOBIN/HEMATOCRIT [facility] Start: 08-12-2023 HEPATITIS A (1 of 2 - Risk 2-dose series) HEPATITIS A (1 of 2 - Risk 2-dose series) [facility] Comment on above: Postponed from 1966 (Declined at t his time) Postponed from 05/30 (Declined at this time) Start: 08-12-2023 Hepatitis A Vaccine (1 of 2 - Risk 2-dose series) Hepatitis A Vaccine (1 of 2 - Risk 2-dose series) [facility] Comment on above: Postponed from 1984 (Declined at t his time) Start: 08-12-2023 Hepatitis B surface antibody level LDL CHOLESTEROL [facility] Start: 08-12-2023 SERUM CREATININE SERUM CREATININE [facility] Start: 08-12-2023 SHINGRIX VACCINE (1 of 2) SHINGRIX VACCINE (1 of 2) [facility] Comment on above: Postponed from 1984 (Declined at t his time) Start: 08-05-2023 HEMOGLOBIN/HEMATOCRIT HEMOGLOBIN/HEMATOCRIT [facility] Start: 08-05-2023 SERUM CREATININE SERUM CREATININE [facility] Start: 08-01-2023 HEMOGLOBIN/HEMATOCRIT HEMOGLOBIN/HEMATOCRIT [facility] Start: 08-01-2023 SERUM CREATININE SERUM CREATININE [facility] Start: 07-29-2023 End: 07-29-2023 Debridement muscle &/fascia ea addl 20 sq cm DEBRIDEMENT MUSCLE AND FASCIA LEG EACH ADDITIONAL 20 SQ CM Wound dehiscence 07/29/2023 3:15 PM EDT [facility] Start: 07-29-2023 End: 07-29-2023 Negative pressure wound therapy dme <= 50 sq cm APPLICATION WOUND VAC EXTREMITY LOWER TOTAL WOUND SURFACE LESS THAN 50 SQ [facility] Wound dehiscence 07/29/2023 3:15 PM EDT [facility] Start: 07-25-2023 HEMOGLOBIN/HEMATOCRIT HEMOGLOBIN/HEMATOCRIT [facility] Start: 07-22-2023 Hemoglobin A1c measurement HbA1C [facility] Start: 07-13-2023 End: 07-13-2023 Patient encounter procedure 07/13/2023 8:45 AM EDT Office Visit Podiatry [address] [place], [place] [phone] Frank Gerard [address] [place], [place] [phone] diabetic f/u 1 mnth r/s from Podiatry Comment on above: diabetic f/u 1 mnth r/s from Start: 07-10-2023 End: 07-10-2023 Patient encounter procedure 07/10/2023 8:45 AM EDT Office Visit Podiatry [address] [place] [address] Frank Gerard [address] [place], [place] [phone] diabetic f/u 1 mnth r/s from Podiatry Comment on above: diabetic f/u 1 mnth r/s from Start: 07-09-2023 SERUM CREATININE SERUM CREATININE [facility] Start: 07-06-2023 End: 07-06-2023 Patient encounter procedure 07/06/2023 11:30 AM EDT Office Visit [facility] [address] [place] [address] Dorene Murillo MD [address] [place] [address] PO R TIBIA--SX: 06/12/23 [facility] Comment on above: PO R TIBIA--SX: 06/12/23 Start: 07-06-2023 End: 07-06-2023 Patient encounter procedure 07/06/2023 8:30 AM EDT Office Visit Podiatry [address] [place] [address] Frank Gerard [address] [place] [address] 1 month follow up diabetic foot care Podiatry Comment on above: 1 month follow up diabetic foot care Start: 07-04-2023 SERUM CREATININE SERUM CREATININE [facility] Start: 07-02-2023 Administration of blood product [facility] Start: 07-02-2023 [facility] Start: 07-02-2023 Administration of blood product [facility] Start: 07-02-2023 [facility] Start: 07-02-2023 Administration of blood product [facility] Start: 07-02-2023 [facility] Start: 07-01-2023 HEMOGLOBIN/HEMATOCRIT HEMOGLOBIN/HEMATOCRIT [facility] Start: 07-01-2023 SERUM CREATININE SERUM CREATININE [facility] Start: 06-29-2023 Leukocyte reduced red blood cells [facility] Start: 06-29-2023 End: 06-29-2023 [facility] Start: 06-29-2023 Administration of blood product [facility] Start: 06-09-2023 [facility] Start: 06-04-2023 [facility] Start: 05-25-2023 HEMOGLOBIN/HEMATOCRIT HEMOGLOBIN/HEMATOCRIT [facility] Start: 05-25-2023 SERUM CREATININE SERUM CREATININE [facility] Start: 04-10-2023 Mammography [facility] Start: 04-10-2023 Screening for malignant neoplasm of breast Mammogram Screening [facility] Start: 04-02-2023 BP CONTROLLED (<130/80) BP CONTROLLED (<130/80) [facility] Start: 03-22-2023 HEMOGLOBIN/HEMATOCRIT HEMOGLOBIN/HEMATOCRIT [facility] Start: 03-21-2023 ANNUAL PCP TEAM CHRONIC DISEASE VISIT ANNUAL PCP TEAM CHRONIC DISEASE VISIT [facility] Start: 03-09-2023 [facility] Start: 03-02-2023 Behavioral Health Screening Behavioral Health Screening [facility] Start: 02-20-2023 HEMOGLOBIN/HEMATOCRIT HEMOGLOBIN/HEMATOCRIT [facility] Start: 02-04-2023 [facility] Start: 02-04-2023 Administration of blood product [facility] Start: 02-04-2023 Leukocyte reduced red blood cells [facility] Start: 02-04-2023 [facility] Start: 01-29-2023 Patient discharge [facility] Start: 01-29-2023 End: 01-29-2023 [facility] Start: 01-29-2023 Hemodialysis care [facility] Start: 01-27-2023 End: 01-27-2023 [facility] Start: 01-27-2023 Hemodialysis care [facility] Start: 01-24-2023 HEMOGLOBIN/HEMATOCRIT HEMOGLOBIN/HEMATOCRIT [facility] Start: 01-24-2023 End: 01-24-2023 [facility] Start: 01-24-2023 Hemodialysis care [facility] Start: 01-22-2023 End: 01-23-2023 [facility] Start: 01-21-2023 Application of intermittent pneumatic compression device [facility] Start: 01-21-2023 Provision of overbed trapeze [facility] Start: 01-21-2023 Recommendation to continue with treatment [facility] Start: 01-21-2023 Ambulation therapy management [facility] Start: 01-21-2023 Application of device [facility] Start: 01-21-2023 Application of elastic bandage [facility] Start: 01-21-2023 Assessment of risk of venous thromboembolism [facility] Start: 01-21-2023 Catheterization of vein [facility] Start: 01-21-2023 Exercises [facility] Start: 01-21-2023 Following clinical pathway protocol [facility] Start: 01-21-2023 Introduction of urinary catheter [facility] Start: 01-21-2023 Measuring intake and output [facility] Start: 01-21-2023 Neurovascular assessment [facility] Start: 01-21-2023 Patient education [facility] Start: 01-21-2023 Procedure discontinued [facility] Start: 01-21-2023 Provision of activity privileges [facility] Start: 01-21-2023 Referral to occupational therapist [facility] Start: 01-21-2023 Referral to service [facility] Start: 01-21-2023 Vital signs measurements [facility] Start: 01-21-2023 Wound care [facility] Start: 01-21-2023 [facility] Start: 01-21-2023 End: 01-21-2023 [facility] Start: 01-21-2023 Hemodialysis care [facility] Start: 01-20-2023 End: 01-20-2023 [facility] Start: 01-20-2023 Hemodialysis care [facility] Start: 01-20-2023 Inhalation therapy procedure [facility] Start: 01-19-2023 Assessment of risk of venous thromboembolism [facility] Start: 01-19-2023 Care planning and problem solving actions [facility] Start: 01-19-2023 Care regimes management [facility] Start: 01-19-2023 Consultation [facility] Start: 01-19-2023 Insertion of catheter into peripheral vein [facility] Start: 01-19-2023 Measuring intake and output [facility] Start: 01-19-2023 Notification of physician [facility] Start: 01-19-2023 Providing care according to standard [facility] Start: 01-19-2023 Referral to paper cutter [facility] Start: 01-19-2023 Referral to occupational therapist [facility] Start: 01-19-2023 Referral to service [facility] Start: 01-19-2023 [facility] Start: 01-19-2023 Following clinical pathway protocol [facility] Start: 01-19-2023 Admission procedure [facility] Start: 01-19-2023 Verification routine [facility] Start: 01-19-2023 Hospital admission, emergency, from emergency room, medical nature [facility] Start: 01-19-2023 Consultation [facility] Start: 01-15-2023 [facility] Start: 01-13-2023 [facility] Start: 01-10-2023 HEMOGLOBIN/HEMATOCRIT HEMOGLOBIN/HEMATOCRIT [facility] Start: 01-10-2023 SERUM CREATININE SERUM CREATININE [facility] Start: 12-27-2022 HEMOGLOBIN/HEMATOCRIT HEMOGLOBIN/HEMATOCRIT [facility] Start: 12-18-2022 HEMOGLOBIN/HEMATOCRIT HEMOGLOBIN/HEMATOCRIT [facility] Start: 12-18-2022 SERUM CREATININE SERUM CREATININE [facility] Start: 11-20-2022 End: 01-20-2023 Bacteria identified in Urine by Culture URINE CULTURE Microbiology Routine Dysuria Expected: 11/20/2022, Expires: 01/20/2023 [facility] Work Phone: Comment on above: Expected: 11/20/2022, Expires: 3 Start: 11-20-2022 HEMOGLOBIN/HEMATOCRIT HEMOGLOBIN/HEMATOCRIT [facility] Start: 11-20-2022 SERUM CREATININE SERUM CREATININE [facility] Start: 11-11-2022 Hemoglobin A1c/Hemoglobin.total in Blood HBA1C [facility] Start: 11-11-2022 Hepatitis B Vaccines (2 of 2 - CpG 2-dose series) Hepatitis B Vaccines (2 of 2 - CpG 2-dose series) [facility] Start: 11-07-2022 End: 01-07-2023 PAIN PANEL, UR QUANT PAIN PANEL, UR QUANT Lab Routine Encounter for drug screening Expected: 11/07/2022, Expires: 01/07/2023 [facility] Work Phone: Comment on above: Expected: 11/07/2022, Expires: 3 Start: 11-07-2022 End: 01-07-2023 TOX SCREEN ROUT UR TOX SCREEN ROUT UR Lab Routine Encounter for drug screening Expected: 11/07/2022, Expires: 01/07/2023 [facility] Work Phone: Comment on above: Expected: 11/07/2022, Expires: 3 Start: 10-31-2022 COVID-19 Vaccine ( season) COVID-19 Vaccine () [facility] Start: 10-31-2022 Covid-19 Vaccine () Covid-19 Vaccine () [facility] Start: 10-31-2022 Influenza vaccination [facility] Start: 10-30-2022 [facility] Start: 10-16-2022 ANNUAL PCP TEAM CHRONIC DISEASE VISIT ANNUAL PCP TEAM CHRONIC DISEASE VISIT [facility] Start: 09-21-2022 HEMOGLOBIN/HEMATOCRIT HEMOGLOBIN/HEMATOCRIT [facility] Start: 09-21-2022 SERUM CREATININE SERUM CREATININE [facility] Start: 09-19-2022 Hemoglobin A1c/Hemoglobin.total in Blood HBA1C [facility] Start: 09-17-2022 End: 11-17-2022 Chronic hepatitis differentiation between hepatitis B and C virus panel - Serum or Plasma HEP REMOTE PANEL BL Lab Routine End stage renal disease (HCC) Expected: 09/17/2022, Expires: 11/17/2022 [facility] Work Phone: Comment on above: Expected: 09/17/2022, Expires: 3 Start: 09-14-2022 Adult depression screening assessment DEPRESSION SCREENING [facility] Start: 09-14-2022 ANNUAL PCP TEAM CHRONIC DISEASE VISIT ANNUAL PCP TEAM CHRONIC DISEASE VISIT [facility] Start: 09-12-2022 Patient discharge [facility] Start: 09-12-2022 [facility] Start: 09-10-2022 End: 11-10-2022 CBC W Auto Differential panel - Blood CBC + DIFF Lab Routine Anemia of renal disease Expected: 09/10/2022, Expires: 11/10/2022 [facility] Work Phone: Comment on above: Expected: 09/10/2022, Expires: 3 Start: 09-10-2022 End: 11-10-2022 Comprehensive metabolic 2000 panel - Serum or Plasma COMP METABOLIC PANEL Lab Routine CKD (chronic kidney disease) stage 5, GFR less than 15 ml/min ([facility]) Hyperkalemia Metabolic acidosis Hypocalcemia Expected: 09/10/2022, Expires: 11/10/2022 [facility] Work Phone: Comment on above: Expected: 09/10/2022, Expires: 3 Start: 09-10-2022 Assessment of risk of venous thromboembolism [facility] Start: 09-10-2022 Care of central venous catheter [facility] Start: 09-10-2022 Care regimes management [facility] Start: 09-10-2022 Fall prevention [facility] Start: 09-10-2022 Inhalation therapy procedure [facility] Start: 09-10-2022 Insertion of catheter into peripheral vein [facility] Start: 09-10-2022 Introduction of urinary catheter [facility] Start: 09-10-2022 Measuring intake and output [facility] Start: 09-10-2022 Oxygen therapy [facility] Start: 09-10-2022 Providing care according to standard [facility] Start: 09-10-2022 Provision of activity privileges [facility] Start: 09-10-2022 Referral to occupational therapist [facility] Start: 09-10-2022 Referral to service [facility] Start: 09-10-2022 [facility] Start: 09-10-2022 Following clinical pathway protocol [facility] Start: 09-10-2022 Admission procedure [facility] Start: 09-07-2022 US.doppler Lower extremity vein [facility] Start: 09-04-2022 End: 11-04-2022 Hepatitis B virus core Ab [Presence] in Serum HEP B CORE AB TOTAL Lab Routine CKD (chronic kidney disease) stage 5, GFR less than 15 ml/min (HCC) Expected: 09/04/2022 (Approximate), Expires: 11/04/2022 [facility] Work Phone: Comment on above: Expected: 09/04/2022 (Approximate), Expi res: 11/04/2022 Start: 08-27-2022 End: 10-27-2022 Hepatitis B virus core Ab [Presence] in Serum HEP B CORE AB TOTAL Lab Routine CKD (chronic kidney disease) stage 5, GFR less than 15 ml/min (HCC) Expected: 08/27/2022, Expires: 10/27/2022 [facility] Work Phone: Comment on above: Expected: 08/27/2022, Expires: Start: 08-27-2022 End: 10-27-2022 Hepatitis B virus surface Ab [Presence] in Serum HEP B SURF AB Lab Routine CKD (chronic kidney disease) stage 5, GFR less than 15 ml/min (HCC) Expected: 08/27/2022, Expires: 10/27/2022 [facility] Work Phone: Comment on above: Expected: 08/27/2022, Expires: 3 Start: 08-27-2022 End: 10-27-2022 Hepatitis B virus surface Ag [Presence] in Serum HEP B SURF AG SCRN Lab Routine CKD (chronic kidney disease) stage 5, GFR less than 15 ml/min (HCC) Expected: 08/27/2022, Expires: 10/27/2022 [facility] Work Phone: Comment on above: Expected: 08/27/2022, Expires: 3 Start: 08-26-2022 End: 10-26-2022 POTASSIUM BLD POTASSIUM BLD Lab Routine Hyperkalemia Expected: 08/26/2022, Expires: 10/26/2022 [facility] Work Phone: Comment on above: Expected: 08/26/2022, Expires: 3 Start: 07-30-2022 ANNUAL PCP TEAM CHRONIC DISEASE VISIT ANNUAL PCP TEAM CHRONIC DISEASE VISIT [facility] Start: 07-30-2022 BP CONTROLLED (<130/80) BP CONTROLLED (<130/80) [facility] Start: 07-30-2022 HEMOGLOBIN/HEMATOCRIT HEMOGLOBIN/HEMATOCRIT [facility] Start: 07-30-2022 SERUM CREATININE SERUM CREATININE [facility] Start: 07-03-2022 HEMOGLOBIN/HEMATOCRIT HEMOGLOBIN/HEMATOCRIT [facility] Start: 07-03-2022 Hepatitis B surface antibody level LDL CHOLESTEROL [facility] Start: 07-03-2022 SERUM CREATININE SERUM CREATININE [facility] Start: 06-28-2022 3 comp foot exam completed DIABETIC FOOT EXAM [facility] Start: 06-28-2022 Diabetic foot examination Diabetic Foot Exam [facility] Start: 06-26-2022 ANNUAL PCP TEAM CHRONIC DISEASE VISIT ANNUAL PCP TEAM CHRONIC DISEASE VISIT [facility] Start: 06-26-2022 HEMOGLOBIN/HEMATOCRIT HEMOGLOBIN/HEMATOCRIT [facility] Start: 06-26-2022 SERUM CREATININE SERUM CREATININE [facility] Start: 06-03-2022 HEMOGLOBIN/HEMATOCRIT HEMOGLOBIN/HEMATOCRIT [facility] Start: 06-03-2022 SERUM CREATININE SERUM CREATININE [facility] Start: 05-10-2022 Glaucoma screening Dilated Retinal Exam [facility] Start: 05-10-2022 Hepatitis C antibody, confirmatory test DILATED RETINAL EXAM [facility] Start: 05-07-2022 HEMOGLOBIN/HEMATOCRIT HEMOGLOBIN/HEMATOCRIT [facility] Start: 05-07-2022 SERUM CREATININE SERUM CREATININE [facility] Start: 03-26-2022 ANNUAL PCP TEAM CHRONIC DISEASE VISIT ANNUAL PCP TEAM CHRONIC DISEASE VISIT [facility] Start: 03-24-2022 Hemoglobin A1c/Hemoglobin.total in Blood HBA1C [facility] Start: 03-07-2022 End: 05-07-2022 Hematocrit [Volume Fraction] of Blood HEMATOCRIT (HCT) Lab STAT Iron malabsorption Chronic kidney disease (CKD), stage IV (severe) (HCC) Anemia due to stage 4 chronic kidney disease (HCC) Expected: 03/07/2022, Expires: 05/07/2022 [facility] Work Phone: Comment on above: Expected: 03/07/2022, Expires: 3 Start: 03-07-2022 End: 05-07-2022 Hemoglobin [Mass/volume] in Blood HEMOGLOBIN (HGB) Lab STAT Iron malabsorption Chronic kidney disease (CKD), stage IV (severe) (HCC) Anemia due to stage 4 chronic kidney disease (HCC) Expected: 03/07/2022, Expires: 05/07/2022 [facility] Work Phone: Comment on above: Expected: 03/07/2022, Expires: 3 Start: 03-02-2022 DEPRESSION ASSESSMENT DEPRESSION ASSESSMENT [facility] Start: 02-20-2022 End: 04-22-2022 25-hydroxyvitamin D3 [Mass/volume] in Serum or Plasma VITAMIN D 25 HYDROXY Lab Routine Repetitive stress injury Other diabetic neurological complication associated with type 2 diabetes mellitus (HCC) Expected: 02/20/2022, Expires: 04/22/2022 [facility] Work Phone: Comment on above: Expected: 02/20/2022, Expires: 3 Start: 12-06-2021 End: 12-05-2022 Cobalamin (Vitamin B12) [Mass/volume] in Serum or Plasma VITAMIN B12 BLOOD Lab Routine Anemia of renal disease Expected: 12/06/2021 (Approximate), Expires: 12/05/2022 [facility] Work Phone: Comment on above: Expected: 12/06/2021 (Approximate), Expi res: 12/05/2022 Start: 12-05-2021 End: 12-05-2022 Ferritin [Mass/volume] in Serum or Plasma FERRITIN BLD Lab Routine Anemia of renal disease Expected: 12/05/2021, Expires: 12/05/2022 [facility] Work Phone: Comment on above: Expected: 12/05/2021, Expires: 3 Start: 12-05-2021 End: 12-05-2022 Folate [Mass/volume] in Serum or Plasma FOLATE SERUM Lab Routine Anemia of renal disease Expected: 12/05/2021, Expires: 12/05/2022 [facility] Work Phone: Comment on above: Expected: 12/05/2021, Expires: 3 Start: 12-05-2021 End: 12-05-2022 Iron and Iron binding capacity panel - Serum or Plasma IRON + TIBC Lab Routine Anemia of renal disease Expected: 12/05/2021, Expires: 12/05/2022 [facility] Work Phone: Comment on above: Expected: 12/05/2021, Expires: 3 Start: 12-04-2021 End: 02-03-2022 Parathyrin.intact [Mass/volume] in Serum or Plasma PTH INTACT BLD Lab Routine Secondary renal hyperparathyroidism (HCC) Expected: 12/04/2021, Expires: 02/03/2022 [facility] Work Phone: Comment on above: Expected: 12/04/2021, Expires: 2 Start: 10-31-2021 Influenza vaccination INFLUENZA (#1) [facility] Start: 09-14-2021 End: 11-14-2021 Hemoglobin A1c in Blood HGB A1C Lab Routine Type 2 diabetes, controlled, with neuropathy (HCC) Expected: 09/14/2021, Expires: 11/14/2021 [facility] Work Phone: Comment on above: Expected: 09/14/2021, Expires: 2 Start: 08-15-2021 Mammography MAMMOGRAM [facility] Start: 08-07-2021 Hemoglobin A1c/Hemoglobin.total in Blood HBA1C [facility] Start: 07-23-2021 3 comp foot exam completed DIABETIC FOOT EXAM [facility] Start: 07-20-2021 Hepatitis B surface antibody level LDL CHOLESTEROL [facility] Start: 06-11-2021 End: 08-11-2021 LIPID PANEL BASIC LIPID PANEL BASIC Lab Routine Hyperlipidemia, unspecified hyperlipidemia type Expected: 06/11/2021, Expires: 08/11/2021 [facility] Work Phone: Comment on above: Expected: 06/11/2021, Expires: 2 Start: 06-11-2021 End: 08-11-2021 SCHEDULE LAB TESTING SCHEDULE LAB TESTING Lab Routine Expected: 06/11/2021, Expires: 08/11/2021 [facility] Work Phone: Comment on above: Expected: 06/11/2021, Expires: 2 Start: 03-02-2021 DEPRESSION ASSESSMENT DEPRESSION ASSESSMENT [facility] Start: 01-15-2021 COVID-19 VACCINE (3 - Booster for Pfizer series) COVID-19 VACCINE (3 - Booster for Pfizer series) [facility] Start: 10-10-2020 COVID-19 VACCINE (3 - Booster for Pfizer series) COVID-19 VACCINE (3 - Booster for Pfizer series) [facility] Start: 05-13-2019 Adult depression screening assessment DEPRESSION SCREENING [facility] Start: 05-31-2015 SHINGRIX VACCINE (1 of 2) SHINGRIX VACCINE (1 of 2) [facility] Start: 05-31-2015 Zoster Vaccines (1 of 2) Zoster Vaccines (1 of 2) [facility] Start: 11-30-2013 TWO PNEUMOVAX 5 YEARS APART PRIOR TO AGE 65 (#2) TWO PNEUMOVAX 5 YEARS APART PRIOR TO AGE 65 (#2) [facility] Start: 2010 COLOGUARD (FIT-DNA) COLOGUARD (FIT-DNA) [facility] Start: [address] COLONOGRAPHY [facility] Start: 2010 FECAL OCCULT BLOOD FECAL OCCULT BLOOD [facility] Start: 2010 Screening for malignant neoplasm of colon [facility] Start: 2010 SIGMOIDOSCOPY SIGMOIDOSCOPY [facility] Start: 11-30-2009 PNEUMOCOCCAL (2 - PCV) PNEUMOCOCCAL (2 - PCV) [facility] Start: 11-30-2009 Pneumococcal Vaccine: Pediatrics (0 to 5 Years) and At-Risk Patients (6 to 64 Years) (2 of 2 - PCV) Pneumococcal Vaccine: Pediatrics (0 to 5 Years) and At-Risk Patients (6 to 64 Years) (2 of 2 - PCV) [facility] Start: 2005 Screening for malignant neoplasm of breast Mammogram [facility] Start: 05-31-1995 Screening for malignant neoplasm of cervix [facility] Start: 1986 Screening for malignant neoplasm of cervix Pap Smear [facility] Start: 1984 ADULT PREVNAR ADULT PREVNAR [facility] Start: 1984 ADULT PREVNAR-13 ADULT PREVNAR-13 [facility] Start: 1984 Hepatitis A Vaccine (1 of 2 - Risk 2-dose series) Hepatitis A Vaccine (1 of 2 - Risk 2-dose series) [facility] Start: 1984 HEPATITIS B (1 of 3 - Risk 3-dose series) HEPATITIS B (1 of 3 - Risk 3-dose series) [facility] Start: 1984 SHINGRIX VACCINE (1 of 2) SHINGRIX VACCINE (1 of 2) [facility] Start: 05-31-1983 Anxiety Screening Anxiety Screening [facility] Start: 05-31-1983 BP CONTROLLED (<130/80) BP CONTROLLED (<130/80) [facility] Start: 05-31-1983 Depression Screening Depression Screening [facility] Start: 05-31-1983 Hepatitis C screening Hepatitis C Screening [facility] Start: 1977 Depression Screening Depression Screening [facility] Start: 05-31-1975 Diabetic foot examination Diabetes: Foot Exam [facility] Start: 05-31-1975 Glaucoma screening Diabetes: Retinopathy Screening [facility] Start: 05-31-1975 Preventive dental service Diabetes: Dental Exam [facility] Start: 1966 HEPATITIS A (1 of 2 - Risk 2-dose series) HEPATITIS A (1 of 2 - Risk 2-dose series) [facility] Start: 1966 MMR Vaccines (1 of 1 - Standard series) MMR Vaccines (1 of 1 - Standard series) [facility] Start: 1965 HEPATITIS B (1 of 3 - 3-dose series) HEPATITIS B (1 of 3 - 3-dose series) [facility] Start: 1965 HIV screening HIV Screening [facility] Start: 1965 Lipid panel Lipid Panel [facility] Start: 1965 Screening for malignant neoplasm of colon [facility] Appl modality 1/> ar eas tucker tank ea 15 min HYDROTHERAPY Procedures Routine Other chronic pain Fibromyalgia Weakness of both lower extremities Ordered: 06/01/2024 [facility] Comment on above: Ordered: 06/01/2024 Bacteria identified in Urine by Culture URINE CULTURE Microbiology Routine Urinary frequency Ordered: 04/02/2022 [facility] Work Phone: Comment on above: Ordered: 04/02/2022 Bacteria identified in Urine by Culture URINE CULTURE Microbiology Routine Acute UTI 06/24/2022 10:25 AM EDT [facility] Work Phone: Bacteria identified in Urine by Culture URINE CULTURE Microbiology STAT Dysuria 11/19/2022 12:40 PM EDT [facility] Work Phone: End: 03-25-2023 CBC panel - Blood by Automated count CBC Lab Routine Chronic kidney disease, stage 4, severely decreased GFR (HCC) Once per month for 4 Occurrences starting 03/25/2022 until 03/25/2023 [facility] Work Phone: Comment on above: Once per month for 4 Occurrences startin g 03/25/2022 until 03/25/2023 End: 07-30-2022 CBC W Auto Differential panel - Blood CBC + DIFF Lab Routine Anemia of renal disease Once per month for 11 Occurrences starting 07/30/2021 until 07/30/2022, 1 completed [facility] Work Phone: Comment on above: Once per month for 11 Occurrences starti ng 07/30/2021 until 07/30/2022, 1 completed End: 07-01-2025 CT Chest WO contrast CT CHEST WO IVCON Radiology Routine Lung nodules 1 Occurrences starting 06/01/2024 until 07/01/2025 [facility] Comment on above: 1 Occurrences starting 06/01/2024 until 07/01/2025 CT Chest WO contrast CT CHEST WO IVCON Radiology Routine Lung nodules 07/27/2024 2:44 PM EDT [facility] Work Phone: End: 07-12-2023 CT KNEE WO IVCON LEFT CT KNEE WO IVCON LEFT Radiology Routine Chronic pain of left knee 1 Occurrences starting 06/12/2022 until 07/12/2023 [facility] Work Phone: Comment on above: 1 Occurrences starting 06/12/2022 until 07/12/2023 Ct thorax w/o contra st material CT CHEST WO IVCON Radiology Routine Lung nodules 04/03/2023 2:41 PM EST [facility] Work Phone: End: 05-19-2025 DBT Breast - bilateral screening MARYLU SCREENING W VERONICA Radiology Routine Encounter for screening mammogram for breast cancer 1 Occurrences starting 04/19/2024 until 05/19/2025 [facility] Work Phone: Comment on above: 1 Occurrences starting 04/19/2024 until 05/19/2025 End: 04-02-2023 Hematocrit [Volume Fraction] of Blood HEMATOCRIT (HCT) Lab STAT Iron malabsorption Anemia due to stage 4 chronic kidney disease (HCC) Every other week for 24 Occurrences starting 04/02/2022 until 04/02/2023 [facility] Work Phone: Comment on above: Every other week for 24 Occurrences star ting 04/02/2022 until 04/02/2023 End: 04-02-2023 Hemoglobin [Mass/volume] in Blood HEMOGLOBIN (HGB) Lab STAT Iron malabsorption Anemia due to stage 4 chronic kidney disease (HCC) Every other week for 24 Occurrences starting 04/02/2022 until 04/02/2023 [facility] Work Phone: Comment on above: Every other week for 24 Occurrences star ting 04/02/2022 until 04/02/2023 End: 12-24-2024 HOME SLEEP APNEA TEST (HSAT) HOME SLEEP APNEA TEST (HSAT) Procedures Routine CASSIE (obstructive sleep apnea) 1 Occurrences starting 12/25/2023 until 12/24/2024 [facility] Work Phone: Comment on above: 1 Occurrences starting 12/25/2023 until 12/24/2024 Influenza virus A an d B RNA and SARS-CoV-2 (COVID-19) N gene panel - Respiratory specimen by CAR with probe detection COVID WITH FLUA+B, ROUTINE Microbiology Routine Viral illness Ordered: 10/15/2021 [facility] Work Phone: Comment on above: Ordered: 10/15/2021 LUNG DIFFUSION CAPAC ITY (DLCO) LUNG DIFFUSION CAPACITY (DLCO) PFT Routine Pulmonary nodules 11/20/2021 3:04 PM EDT [facility] Work Phone: End: 06-11-2024 MG Breast Screening MARYLU SCREENING Radiology Routine Encounter for screening mammogram for breast cancer 1 Occurrences starting 05/13/2023 until 06/11/2024 [facility] Work Phone: Comment on above: 1 Occurrences starting 05/13/2023 until 06/11/2024 Patient Education [facility] Work Phone: Patient referral [facility] Work Phone: End: 07-30-2022 Protein/Creatinine [Mass Ratio] in Urine PROTEIN CREATININE RATIO Lab Routine Stage 5 chronic kidney disease not on chronic dialysis (HCC) Essential hypertension Persistent proteinuria Once per month for 11 Occurrences starting 07/30/2021 until 07/30/2022, 1 completed [facility] Work Phone: Comment on above: Once per month for 11 Occurrences starti ng 07/30/2021 until 07/30/2022, 1 completed End: 03-25-2023 Protein/Creatinine [Mass Ratio] in Urine PROTEIN CREATININE RATIO Lab Routine Chronic kidney disease, stage 4, severely decreased GFR (HCC) Once per month for 4 Occurrences starting 03/25/2022 until 03/25/2023 [facility] Work Phone: Comment on above: Once per month for 4 Occurrences startin g 03/25/2022 until 03/25/2023 End: 09-04-2023 Radiologic exam chest single view XR CHEST 1V FRONTAL Radiology Routine CKD (chronic kidney disease) stage 5, GFR less than 15 ml/min (HCC) 1 Occurrences starting 08/05/2022 until 09/04/2023 [facility] Work Phone: Comment on above: 1 Occurrences starting 08/05/2022 until 09/04/2023 End: 07-30-2022 Renal function 1999 panel - Serum or Plasma RENAL FUNCTION PANEL Lab Routine Stage 5 chronic kidney disease not on chronic dialysis (HCC) Vitamin D deficiency Once per month for 11 Occurrences starting 07/30/2021 until 07/30/2022, 1 completed [facility] Work Phone: Comment on above: Once per month for 11 Occurrences starti ng 07/30/2021 until 07/30/2022, 1 completed End: 03-25-2023 Renal function 1999 panel - Serum or Plasma RENAL FUNCTION PANEL Lab Routine Chronic kidney disease, stage 4, severely decreased GFR (HCC) Once per month for 4 Occurrences starting 03/25/2022 until 03/25/2023 [facility] Work Phone: Comment on above: Once per month for 4 Occurrences startin g 03/25/2022 until 03/25/2023 End: 07-26-2022 Screening mammography bi 2-view breast inc cad MARYLU SCREENING Radiology Routine Screening breast examination 1 Occurrences starting 06/26/2021 until 07/26/2022 [facility] Work Phone: Comment on above: 1 Occurrences starting 06/26/2021 until 07/26/2022 SPIROMETRY - BASELIN E AND POST DILATOR SPIROMETRY - BASELINE AND POST DILATOR PFT Routine Pulmonary nodules 10/28/2021 9:44 AM EDT [facility] Work Phone: Troponin T.cardiac [Mass/volume] in Serum or Plasma by High sensitivity method [facility] End: 08-13-2022 UPPER EXT MAP FOR DIALYSIS ACCESS [facility] UPPER EXT MAP FOR DIALYSIS ACCESS [facility] Vascular Lab Routine CKD (chronic kidney disease) stage 5, GFR less than 15 ml/min (HCC) 1 Occurrences starting 08/13/2021 until 08/13/2022 [facility] Work Phone: Comment on above: 1 Occurrences starting 08/13/2021 until 08/13/2022 End: 03-25-2023 Urinalysis complete panel - Urine URINALYSIS, WITH MICROSCOPIC Lab Routine Chronic kidney disease, stage 4, severely decreased GFR (HCC) Once per month for 4 Occurrences starting 03/25/2022 until 03/25/2023 [facility] Work Phone: Comment on above: Once per month for 4 Occurrences startin g 03/25/2022 until 03/25/2023 End: 07-30-2022 URINALYSIS, DIPSTICK ONLY URINALYSIS, DIPSTICK ONLY Lab Routine Stage 5 chronic kidney disease not on chronic dialysis (HCC) Essential hypertension Persistent proteinuria Once per month for 11 Occurrences starting 07/30/2021 until 07/30/2022 [facility] Work Phone: Comment on above: Once per month for 11 Occurrences starti ng 07/30/2021 until 07/30/2022 End: 02-08-2025 US AV fistula US A/V [facility] Vascular Lab Routine Stenosis of arteriovenous graft, 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HCC) 1 Occurrences starting 02/09/2024 until 02/08/2025 [facility] Work Phone: Comment on above: 1 Occurrences starting 02/09/2024 until 02/08/2025 End: 05-14-2024 US.doppler Extremity arteries - bilateral for physiologic artery study PVR ANK PRESS [facility] Vascular Lab Routine Neuropathy Type 2 diabetes, controlled, with neuropathy ([facility]) Open wound of toe of right foot Diminished pulses in lower extremity Hammertoe, bilateral 1 Occurrences starting 05/15/2023 until 05/14/2024 [facility] Work Phone: Comment on above: 1 Occurrences starting 05/15/2023 until 05/14/2024 End: 06-13-2024 XR Foot - bilateral AP and Lateral and oblique XR FOOT GENERAL 3V AP/LAT/OBL BILATERAL Radiology Routine Neuropathy Type 2 diabetes, controlled, with neuropathy ([facility]) Open wound of toe of right foot Diminished pulses in lower extremity Hammertoe, bilateral 1 Occurrences starting 05/15/2023 until 06/13/2024 [facility] Work Phone: Comment on above: 1 Occurrences starting 05/15/2023 until 06/13/2024 End: 01-09-2024 XR TIBIA FIBULA 2V AP/LAT RIGHT XR TIBIA FIBULA 2V AP/LAT RIGHT Radiology Routine Stress fracture of right tibia, initial encounter 1 Occurrences starting 12/10/2022 until 01/09/2024 [facility] Work Phone: Comment on above: 1 Occurrences starting 12/10/2022 until 01/09/2024 [facility] [place] Immunizations Immunization Date Immunization Notes Care Provider Fa cility 12-22-2023 influenza, injectabl e, madin rogers canine kidney, preservative free Ignacio Cheatham MD Work Phone: [facility] 12-22-2023 influenza virus vacc ine, unspecified formulation Ignacio Cheatham MD Work Phone: [facility] 12-11-2023 COVID-19 vaccine, ag e 12+ yr (PFIZER-BIONTECH COMIRNATY) Tresa Blakelillian GUERREROBENEFITS ADMINISTRATOR Work Phone: [facility] 02-25-2023 respiratory syncytia l virus (RSV) vaccine, bivalent (ABRYSVO) Ct (I-Stat) Work Phone: [facility] 02-18-2023 COVID-19 vaccine, ag e 12+ yr, season (MODERNA) Ct (I-Stat) Work Phone: [facility] 12-23-2022 Seasonal, quadrivale nt, recombinant, injectable influenza vaccine, preservative free Ignacio Cheatham MD Work Phone: [facility] 12-23-2022 influenza virus vacc ine, unspecified formulation Dorene Murillo MD Work Phone: [facility] 10-14-2022 Hepatitis B vaccine (recombinant), CpG adjuvanted Ct (I-Stat) Work Phone: [facility] 08-11-2022 pneumococcal (PCV20) vaccine, 20 valent (PREVNAR 20) Kaylin Carranza RN [facility] 03-21-2022 COVID-19 booster vaccine, age 12+ yr, bivalent (PFIZER-BIONTECH) Goldy Hunter DO Work Phone: [facility] 03-21-2022 influenza, injectabl e, quadrivalent, preservative free Goldy Dale DO Work Phone: [facility] 03-21-2022 influenza virus vacc ine, unspecified formulation Ignacio Cheatham MD Work Phone: [facility] 02-18-2021 influenza, injectabl e, quadrivalent, contains preservative Stacy Schmitz PA-C Work Phone: [facility] 03-16-2019 tuberculin skin test ; purified protein derivative solution, intradermal Xr Lito Work Phone: [facility] 02-21-2019 influenza, injectabl e, quadrivalent, contains preservative Stacy Bogner PA-C Work Phone: [facility] 02-21-2019 tuberculin skin test ; purified protein derivative solution, intradermal Xr Lito Work Phone: [facility] 12-28-2017 influenza, injectabl e, quadrivalent, contains preservative Stacy Bogner PA-C Work Phone: [facility] 06-22-2017 tuberculin skin test ; purified protein derivative solution, intradermal Xr Lito Work Phone: [facility] 06-15-2017 tuberculin skin test ; purified protein derivative solution, intradermal Xr York Work Phone: [facility] 06-08-2017 tuberculin skin test ; purified protein derivative solution, intradermal Xr York Work Phone: [facility] 11-25-2016 tetanus toxoid, redu calin diphtheria toxoid, and acellular pertussis vaccine, adsorbed Stacy Bogner PA-C Work Phone: [facility] 12-11-2014 influenza, seasonal, injectable Stacy Bogner PA-C Work Phone: [facility] 06-28-2013 tetanus toxoid, redu calin diphtheria toxoid, and acellular pertussis vaccine, adsorbed Stacy Bogner PA-C Work Phone: [facility] Work Phone: 02-04-2012 influenza virus vacc ine, unspecified formulation Stacy Bogner PA-C Work Phone: [facility] Work Phone: 12-14-2008 influenza virus vacc ine, unspecified formulation Stacy Bogner PA-C Work Phone: [facility] Work Phone: 11-30-2008 pneumococcal polysaccharide vaccine, 23 valent Stacy Bogner PA-C Work Phone: [facility] Payers Date Payer Category Payer Medicare (Managed Care) [employer] [id number] 2024 Private Health Insurance [id number] 2023 Self-pay [id number] 2023 Medicaid [id number] 2023 Private Health Insurance [id number] 2023 Private Health Insurance [employer] [place] [facility] [place] [id number] 2023-Present [address] [place] [address] Medicaid [id number] 2022 Medicare [id number] 2022 Medicare [id number] 2020 Unknown [employer] BLUE CARD PPO OOS [id number] 2020-Present [phone] [address] [place] [address] PPO [id number] 2020 Unknown [employer]M BLUE CARD PPO OOS [id number] 2020-Present [phone] [address] [place] [address] PPO [id number] 2020 Unknown [id number] 2017 Medicare [id number] Medicaid [id number] Unknown [id number] Unknown [id number] Unknown [id number] 462 Unknown [id number] 462 Unknown [id number] 462 Unknown [id number] 462 Unknown [id number] 462 Unknown [id number] 462 Unknown [id number] 462 Social History Date Type Detail Facility Start: 08-28-2010 End: 12-11-2023 Tobacco smoking status NHIS Ex-smoker [facility] Work Phone: Start: 08-01-1983 End: 07-31-1989 History of tobacco use Current smoker [facility] Work Phone: Start: 08-01-1983 End: 07-31-1989 History of tobacco use Cigarette Smoker [facility] Work Phone: Start: 06-03-2021 End: 09-12-2024 Alcohol intake Ex-drinker (finding) [facility] Start: 08-15-2020 History SDOH Alcohol Comment rare [facility] Start: 04-25-2008 End: 10-15-2021 Tobacco Comment Quit at age 24 [facility] Start: 1965 Sex Assigned At Female C [facility] Start: 10-01-2020 End: 01-24-2022 Exposure to SARS-CoV-2 (event) Not sure [facility] Start: 07-03-2021 Education 21 [facility] Start: 07-29-2021 End: 06-29-2023 Tobacco smoking status NHIS Unknown if ever smoked [facility] Start: 12-06-2019 None [facility] Start: 12-06-2019 With Family [facility] Start: 07-04-2019 Non-smoker [facility] Start: 07-30-2021 End: 08-01-2022 History SDOH Alcohol Frequency 1 [facility] Start: 07-30-2021 History SDOH Alcohol Std Drinks 98 [facility] Start: 07-30-2021 End: 03-20-2022 History SDOH Social Connections Phone 5 [facility] Start: 07-30-2021 End: 08-01-2022 History SDOH Social Connections Get Together 4 [facility] Start: 07-30-2021 End: 03-20-2022 History SDOH Social Connections Hoahaoism 3 [facility] Start: 07-30-2021 End: 03-20-2022 History SDOH Social Connections Living 7 [facility] Start: 07-30-2021 End: 08-01-2022 History SDOH Physical Activity DPW 2 [facility] Start: 08-09-2021 End: 08-19-2021 Exposure to SARS-CoV-2 (event) Unable to assess [facility] Start: 08-28-2010 End: 12-21-2023 Cigarettes smoked current (pack per day) - Reported 2 [facility] Start: 08-28-2010 End: 12-11-2023 Tobacco use and exposure Smokeless tobacco non-user [facility] Start: 03-20-2022 History SDOH Alcohol Std Drinks 0 [facility] Start: 03-20-2022 End: 12-21-2023 Social connection and isolation panel [facility] Do you belong to any clubs or organizations such as protestant groups, unions, fraternal or athletic groups, or school groups? Yes [facility] Are you now , , , , never or living with a partner? Never [facility] How often to you hav e a drink containing alcohol? Never [facility] How many standard drinks containing alcohol do you have on a typical day? Patient does not drink [facility] How hard is it for y ou to pay for the very basics like food, housing, medical care, and heating Not very hard [facility] Do you feel stress - tense, restless, nervous, or anxious, or unable to sleep at night because your mind is troubled all the time - these days [OSQ] To some extent [facility] (I/We) worried wheart er (my/our) food would run out before (I/we) got money to buy more. Never true [facility] In the past 12 month s, was there a time when you were not able to pay the mortgage or rent on time? No [facility] Start: 05-07-2021 Gender identity Identifies as female gender (finding) [facility] Start: 05-07-2021 Sexual orientation Heterosexual (harry dawn) [facility] How hard is it for y ou to pay for the very basics like food, housing, medical care, and heating Somewhat hard [facility] Start: 1965 Sex Assigned At Not on file S [facility] NEGATED: Highlighted row [facility] Medical Equipment Procedure Code Equipment Code Equipment Origin al Text Equipment Identifier Dates Insertion, intramedullary stephen, tibia ([id number]) Tibia nail, sterile [id number] FDA Start: 01-21-2023 Insertion, intramedullary stephen, tibia ([id number]) Orthopaedic bone screw, non-bioabsorbable, sterile ()[id number] FDA Start: 01-21-2023 Insertion, intramedullary stephen, tibia ([id number]) Orthopaedic bone screw, non-bioabsorbable, sterile ()[id number] FDA Start: 01-21-2023 Insertion, intramedullary stephen, tibia Orthopaedic bone screw, non-bioabsorbable, sterile ()[id number] FDA Start: 01-21-2023 Insertion, intramedullary stephen, tibia Orthopaedic bone screw, non-bioabsorbable, sterile ()[id number] FDA Start: 01-21-2023 [id number], [id number], [id number], [id number] Start: 05-17-2020 End: 09-14-2021 Comment on above: Test Two times a day . Insulin Dep? No E11.9 DM 2 Graft 4-7mm Standard Master Hearth Technician [place] 45cm Vascular Stretch Sterile - [id number] Start: 07-24-2022 Bit 2.8mm 300mm 200mm Drill Quick Coupling Calibrated Nonsterile - [id number] Start: 06-12-2023 Gyy-Fo-C-Kind Implant - [id number] Start: 06-12-2023 3.5mm Lcp Prox T ib Plt Low Bend 8h/128mm/Rt-St [id number] Start: 06-12-2023 Plate Lcp Contou r Stainless Steel 93mm Bone 4 Hole Fixed Angle Limited - [id number] Start: 06-12-2023 Fibergraft Bg Putty Bone Graft Substitute Syrince 6cc [id number] Start: 06-12-2023 Screw Lcp 3.5mm T15 Full Thread Stainless Steel 75mm Bone Lock Self Tap - [id number] Start: 06-12-2023 Screw Lc-Dcp Dcp 3.5mm 6mm Full Thread Stainless Steel 36mm Bone Self - [id number] Start: 06-12-2023 Screw Lcp 3.5mm T15 Full Thread Stainless Steel 70mm Bone Fix Angle Lock - [id number] Start: 06-12-2023 Screw Lc-Dcp Dcp 3.5mm 6mm Full Thread Hexagon Stainless Steel 30mm Bone - [id number] Start: 06-12-2023 Screw Lc-Dcp Dcp 3.5mm 6mm Full Thread Stainless Steel 32mm Bone Self - [id number] Start: 06-12-2023 Cement Simplex Bone High Viscosity - [id number] Start: 07-29-2023 Goals Date Patient Goal Desired Activity /State Personal health goal Functional Status Date Assessment Result Facility 08-07-2023 Are you deaf, or do you have serious difficulty hearing No 08/07/2023 11:12 AM Clare Molina RN No [facility] 08-07-2023 Are you blind, or do you have serious difficulty seeing, even when wearing glasses No 08/07/2023 11:12 AM Clare Molina RN No [facility] 08-07-2023 Do you have serious difficulty walking or climbing stairs Yes 08/07/2023 11:12 AM Clare Molina RN Yes [facility] 08-07-2023 Do you have difficul ty dressing or bathing Yes 08/07/2023 11:12 AM Clare Molina RN Yes [facility] 08-07-2023 Because of a physica l, mental, or emotional condition, do you have difficulty doing errands alone such as visiting a physician's office or shopping Yes 08/07/2023 11:12 AM Clare Molina RN Yes [facility] 01-29-2023 Functional status Ambulates [facility] Work Phone: 09-12-2022 Functional status Dangle Feet [facility] Work Phone: Mental Status Date Assessment Result Facility 08-07-2023 Because of a physica l, mental, or emotional condition, do you have serious difficulty concentrating, remembering, or making decisions No 08/07/2023 11:12 AM Clare Molina RN No [facility] 07-02-2023 Cognitive function Voice/Name [facility] Work Phone: 06-29-2023 Cognitive function Level Of Cons ciousness Awake;Alert;Appropriate [facility] Work Phone: 02-04-2023 Cognitive function Level Of Cons ciousness Awake;Alert;Appropriate;Fol lows Commands [facility] Work Phone: 01-29-2023 Cognitive function Voice/Name [facility] Work Phone: 10-30-2022 Cognitive function Voice/Name [facility] Work Phone: 09-12-2022 Cognitive function Awake;Alert;Appropriat e [facility] Work Phone: 09-11-2022 Cognitive function Voice/Name [facility] Work Phone: 07-29-2021 Cognitive function Level Of Cons ciousness Awake;Alert;Appropriate;Fol lows Commands [facility] Work Phone: Clinical Notes 04-16-2017 to 09-22-2024 Telephone Encounter - Diana Brand RN - 09/22/2024 8:39 AM EDTTelephone Encounter - Diana Brand RN - 09/22/2024 8:39 AM EDTTelephone Encounter - Esperanza Post - 09/19/2024 1:42 PM EDT Note Date & Type Note Facility 09-22-2024 Telephone encounter Note Patient returns call from dialysis center phone and notified that lyrica has been approved with verbalized understanding. Patient missed last OV with [facility] as she thought it was this coming week. Will call back to schedule as she is currently at dialysis and it is not convenient. Diana Brand RN [facility] 09-22-2024 Miscellaneous Notes Patient returns call from dialysis center phone and notified that lyrica has been approved with verbalized understanding. Patient missed last OV with [facility] as she thought it was this coming week. Will call back to schedule as she is currently at dialysis and it is not convenient. Diana Brand RN Tried to complete through Cover My Meds. Did not recognized Pt. Called [employer] and did PA over the phone. PA Authorization # [id number] good for 03/02/2024 to 03/01/2025. Called Pt earlier to [employer] phone out of service. Did speak with EC and they will have Pt call back. Please notifie Pt PA was approved. Nataly Burns LPN SLEEPPAREQUEST A PA has been received via fax. Requested by: Joshua Callback #: Medication: Pregabalin Dosage: 25 mg Soriano: [id number] documented in this encounter [facility] 09-20-2024 Telephone encounter Note Tried to complete through Cover My Meds. Did not recognized Pt. Called [employer] and did PA over the phone. PA Authorization # [id number] good for 03/02/2024 to 03/01/2025. Called Pt earlier to [employer] phone out of service. Did speak with EC and they will have Pt call back. Please notifie Pt PA was approved. Nataly Burns LPN [facility] 09-19-2024 Telephone encounter Note SLEEPPAREQUEST A PA has been received via fax. Requested by: Joshua Callback #: Medication: Pregabalin Dosage: 25 mg Soriano: [id number] [facility] 09-12-2024 Telephone encounter Note Rx refilled Alondra Chung APRN.[facility] PDMP website checked and validated. All prescriptions have been APPROPRIATELY filled. No suspicious activity was identified. 09/12/2024 by Alondra Chung APRN.CNP [facility] 09-12-2024 Miscellaneous Notes Rx refilled Alondra Chung APRN.CNP PDMP website checked and validated. All prescriptions have been APPROPRIATELY filled. No suspicious activity was identified. 09/12/2024 by Alondra Chung APRN.CNP Prescription Refill Information The patient has been identified by name and date of : Yes Caregiver verified no other encounters exist for this prescription request: Yes Caregiver confirmed with patient/requestor that no other refills are due, in the near future, with this provider at this time: Yes The last office visit in the department: 07/04/24 Does the patient have a future office visit with this provider/department: Yes 09/19/24 Requested Prescriptions Pending Prescriptions Disp Refills pregabalin (LYRICA) 25 mg capsule 90 capsule 0 Sig: Take 1 capsule by mouth daily at bedtime for 90 days. Nataly Burns LPN September 12, 2024 12:47 PM documented in this encounter [facility] 09-12-2024 History of Presen t illness Narrative Images from the original note were not included. . [facility] [place] Note Patient name: Margareth Gonzalez PCP: Ignacio Cheatham MD Referring Physician: Kristy Marcum CNP Recording using [employer] software for draft documentation of the visit was discussed with the patient/authorized employer relations representative; all questions welcomed and answered. Patient/authorized employer relations representative agreed to proceed CC: lung nodules HPI: Margareth Gonzalez 59 year old female former remote [id number] smoker quitting in 1989 with PMH significant for bipolar disorder, DM, GERD, DVT, fibromyalgia, HLD, CASSIE, obesity status post gastric bypass, asthma, allergies, ESRD previously seen [place] [address] Macias for evaluation of pulmonary nodules as a preoperative evaluation for possible kidney transplant. Now being referred back to pulmonary clinic by Kristy Marcum for new lung nodule. Review of past CT of chest shows waxing and waning nodules. She was just seen in ED at [facility] for sob and chest pain. CTA chest obtained that was negative for PE but pertinent for pulmonary edema, bilateral effusions. Review of films shows that new RUL nodule has decreased in size but she has new semisolid nodules in RUL. No history of recurrent pneumonia or bronchitis although she relates a severe episode of pneumonia approximately 15 years ago resulting in ICU stay and need for supplemental oxygen for 3 months post discharge. Chest imaging shows mosaic pattern consistent with airways disease. She has a long history of asthma since childhood. She also has a history of allergies but never required immunotherapy. In the past, she had been on inhaled corticosteroids but had problems with recurrent thrush. Currently she has been using Primatene Mist. She has some days where her shortness of breath is worse than others and not necessarily related to need for dialysis. No chronic cough, mucus production, wheezing. DME: [employer] CPAP DATA: PFT 2021: Imaging / Diagnostic Studies: DATE OF EXAM: Jul 27 2024 2:44PM [facility] 0541 - CT CHEST WO IVCON / IMPRESSION: Although many of the pulmonary nodules, including a 1 cm nodular opacity anteriorly within the right middle lobe, are stable, other pulmonary nodules have resolved interval, while new pulmonary nodules have developed. Although findings suggest waxing/waning multifocal infectious or inflammatory disease, continued interval surveillance is recommended. Regions of groundglass attenuation and air-trapping within both lungs suggests reactive airways disease. No felix lymphadenopathy is seen within the chest. Chest CT 04/2023: [facility] Imaging Services [address] [place] [id number] CTA Chest W/WO Contrast MR#: [id number] Acct: [id number] Name: Margareth GONZALEZ Rep #: [id number] : 1965 F 59 From: Frank Tabor MD PCP: Dr. Ignacio Cheatham MD Status: REG ER Study: CTA Chest W/WO Contrast Date of Exam: 09/06/24 FINDINGS: Mild anasarca. No acute osseous abnormalities. Normal caliber thoracic aorta. Mild pericardial effusion. No pulmonary artery filling defects. Moderate bilateral pleural effusions. Interlobular septal thickening. Diffuse ground-glass opacities. No acute upper abdominal abnormalities. CT/CTA Chest W/WO Contrast IMPRESSION: No pulmonary embolism. Probable pulmonary edema. Moderate bilateral pleural effusions. Mild pericardial effusion. See HPI for interpretation PAST MEDICAL HISTORY Diagnosis Date Acute gastritis without mention of hemorrhage Allergic rhinitis Anaphylaxis Anemia Asthma ([facility]) Back pain Benign essential tremor Bipolar I disorder, most recent episode (or current) unspecified sectrum Bone mass Candidiasis, intertrigo Chronic kidney disease Contraceptive management Depression Diabetes ([facility]) Diarrhea DVT, lower extremity ([facility]) 08/2014 Right leg (6) Esophagitis ESRD (end stage renal disease) ([facility]) 07/03/2022 Facial fracture due to fall ([facility]) Fatigue Fibromyalgia Fracture Fracture of shaft of fibula GERD (gastroesophageal reflux disease) HLD (hyperlipidemia) on tricor Hyperlipidemia Hypertension Hypomagnesemia Hypopotassemia IBS (irritable bowel syndrome) Insomnia Intertrigo Knee pain Morbid obesity ([facility]) 03/11/2011 Myalgia Nausea Neck pain Neuropathy Nocturnal leg cramps Non-cardiac chest pain Obesity CASSIE (obstructive sleep apnea) 07/08/2011 Other polyp of sinus Other specified anemias Personal history of unspecified urinary disorder PMH - PAST MEDICAL HISTORY OF left knee surgery x3 Pulmonary nodules Pyelonephritis, acute Restless leg Ruptured appendicitis S/P gastric bypass Snoring Type 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, not stated as uncontrolled(250.50) on oral medications and Lanuts Unspecified asthma(493.90) on inhalers Unspecified essential hypertension on medical management Upper abdominal pain Urinary frequency Vitamin D deficiency ALLERGIES Allergen Reactions Vicodin [Hydrocodon* Vomiting Balsam 115 Balsam Juan Unknown Barium Sulfate Unknown Benadryl Allergy De* Itching Benadryl [Diphenhyd* Rash, Itching Codeine Vomiting, Other: See Comments Lisinopril Contraindication-Medical Surgical Acute renal failure Mold Nsaids (Non-Steroid* Other: See Comments Unable to take nsaids after having gastric bypass. Penicillins Anaphylaxis Seasonal Allergies Other: See Comments Nose runs, sneezing... Tetracycline Rash Vanilla Extract Vanilla Extract Fla* Unknown torsemide (DEMADEX) 100 mg tablet Take 100 mg by mouth once daily. clopidogrel (PLAVIX) 75 mg tablet Take 1 tablet by mouth once daily. dulaglutide (TRULICITY) 0.75 mg/0.5 mL pen injector Inject 0.75 mg subcutaneously one time a week. DX: E11.40 Type 2 DM pregabalin (LYRICA) 25 mg capsule Take 1 capsule by mouth daily at bedtime for 90 days. (Patient taking differently: Take 50 mg by mouth daily at bedtime.) omeprazole (PRILOSEC) 20 mg capsule Take 1 capsule by mouth once daily. calcitriol (ROCALTROL) 0.25 mcg capsule 6 pills daily 3X/week -- Per diaylsis sevelamer carbonate (RENVELA) 800 mg tablet Two tablets by mouth with meals -- Ordered by dialysis NIFEdipine ER (PROCARDIA XL) 30 mg 24 hr tablet Take 3 tablets by mouth every afternoon. -- per dialysis DULoxetine (CYMBALTA) 30 mg capsule Take 1 capsule by mouth once daily. atorvastatin (LIPITOR) 40 mg tablet Take 1 tablet by mouth daily at bedtime. For cholesterol. cholecalciferol (VITAMIN D3) 5,000 unit tab Take 5,000 Units by mouth twice daily. albuterol HFA (PROVENTIL HFA, VENTOLIN HFA) 90 mcg/actuation inhaler Inhale 2 puffs as instructed every 4 hours as needed. ondansetron orally disintegrating (ZOFRAN ODT) 4 mg disintegrating tablet Take 1 tablet by mouth every 8 hours as needed for nausea/vomiting. CPAP/BIPAP/OTHER APAP 5-20 cmH2O [facility] Blood-Glucose Meter (ONETOUCH VERIO FLEX METER) Dispense one meter kit. E11.9 blood sugar diagnostic (ONETOUCH VERIO TEST STRIPS) test strip Checks once per day to calibrate CGM lancets (ONETOUCH DELICA PLUS LANCET) 33 gauge Checks once per day to calibrate CGM E11.9 Blood-Glucose Sensor (FREESTYLE FESTUS 3 PLUS SENSOR) natty CHANGE SENSOR EVERY 15 days, USE FOR CONTINUOUS GLUCOSE MONITORING. E11.9 DIALYSIS PATIENT Blood-Glucose Meter,Continuous (FREESTYLE FESTUS 3 READER) [facility] [place]pense one reader kit. E11.9 DIALYSIS PATIENT hydrOXYzine HCl (ATARAX) 50 mg tablet Take 1 tablet by mouth every 6 hours as needed for itching/rash. acetaminophen (TYLENOL) 500 mg tablet Take 1,000 mg by mouth every 12 hours. melatonin 5 mg tablet Take 5 mg by mouth. As needed. Hpoyaxyq-Hf-Her-Fe-FA ( VITAMIN) ORAL Tab Take 1 tablet by mouth once daily. Social History Tobacco Use Smoking status: Former Current packs/day: 0.00 Average packs/day: 2.0 packs/day for 6.0 years (12.0 ttl pk-yrs) Types: Cigarettes Start date: 08/01/1983 Quit date: 07/31/1989 Years since quittin.1 Smokeless tobacco: Never Tobacco comments: Quit at age 24 Vaping Use Vaping status: Never Used Substance Use Topics Alcohol use: Not Currently Comment: rare Drug use: No Comment: Tried marijuana once - never used it again. Pets: cat FAMILY HISTORY Problem Relation Age of Onset Thyroid Father Blindness Mother Diabetic retinopathy Diabetes Mother from renal disease Coronary Artery Disease Mother other (Diabetic Retinaopathy) Mother Cancer Mother uterine Stroke Mother Kidney Disease Mother Thyroid Sister skin cancer Kidney Disease Sister Diabetes Sister Diabetes Sister Coronary Artery Disease Brother Diabetes Brother Coronary Artery Disease Brother Colon Cancer Other none Breast Cancer Other none PAST SURGICAL HISTORY Procedure Laterality Date CHOLECYSTECTOMY 04/02/2011 COLONOSCOPY W/BIOPSY SINGLE/MULTIPLE 12/16/2007 DILATION & CURETTAGE DX&/THER NONOBSTETRIC Dilation & curettage EGD TRANSORAL BIOPSY SINGLE/MULTIPLE 12/16/2007 ESOPHAGOGASTRODUODENOSCOPY TRANSORAL DIAGNOSTIC age 14 EGD LAPAROSCOPIC APPENDECTOMY 05/16/2011 MIDLINE INSERTION/CONSULT 07/29/2012 Lap Paul-en-Y gastric bypass PAST SURGICAL HISTORY OF age 14 left knee surgery, for dislocation PAST SURGICAL HISTORY OF age 5 warts removed PAST SURGICAL HISTORY OF 03/02/2007 laser surgery to both eyes for diabetic retinopathy PAST SURGICAL HISTORY OF 04/26/2008 Bilateral eye surgery- vitrectomy PAST SURGICAL HISTORY OF 06/30/2008 Left eye air fluid exchange PAST SURGICAL HISTORY OF 04/09, 07/07 retinal vitrectomies PAST SURGICAL HISTORY OF Left 07/24/2022 Left forearm AVG with [address] Valenzuela STRESS TEST 200p, 2015 Normal results TUBAL LIGATION HX ablation at the same time PMH, Social history, family history and surgical history reviewed and updated in EMR REVIEW OF SYSTEMS: CONSTITUTIONAL: No fevers, chills, nightsweats, unintended weight loss HEENT: Denies nasal congestion/sinus symptoms, current allergy problems. EYES: Poor vision CARDIOVASCULAR: No chest pain, palpitations, orthopnea, edema. PULM: See HPI GI: No dysphagia/odynophagia, problematic reflux NEURO: No balance problems. Difficult ambulation MUSC-SKEL: Arthritis PSY: Bipolar disorder INTEGUMENTARY: No new skin changes PHYSICAL EXAMINATION: BP 102/60 Pulse 77 Resp 18 SpO2 100% LMP 09/20/2014 General Appearance: Age-appropriate female in wheelchair, NAD Skin: Skin color, texture, turgor normal, no suspicious rashes or lesions. Head: Normocephalic, no masses, lesions, tenderness or abnormalities. Oropharynx: Very poor dentition. Neck: No masses or adenopathy. Lungs: Not labored, no wheezes or crackles. Heart: Regular rate and rhythm, no murmurs. Extremities: Left forearm AV fistula, no edema. Assessment/Plan: 1. Lung nodules -Waxing and waning nodules most likely inflammatory -In light of most recent CT of the chest, would recommend repeat CT at 4 months 2. Mild intermittent asthma, uncomplicated -Prescribed albuterol as needed -May need updated exhaled nitric oxide level and spirometry 3. End-stage renal disease -Continue dialysis Thursday. With recent episode of pulmonary edema, may need more aggressive fluid removal I spent a total of 55 minutes on the date of the service which included preparing to see the patient, [id number] patient care, completing clinical documentation, obtaining and/or reviewing separately obtained history, performing a medically appropriate examination, ordering medications, tests, or procedures, and independently interpreting results (not separately reported). Liz Ferreira MD [facility] [place] documented in this encounter [facility] 09-12-2024 Note HNO ID: [id number] Author: LIZ FERREIRA MD Service: ? Author Type: Physician Type: Progress Notes Filed: 09/12/2024 14:25 Note Text: . [facility] [place] Note Patient name: Margareth Gonzalez PCP: Ignacio Cheatham MD Referring Physician: Kristy Marcum CNP Recording using [employer] software for draft documentation of the visit was discussed with the patient/authorized employer relations representative; all questions welcomed and answered. Patient/authorized employer relations representative agreed to proceed CC: lung nodules HPI: Margareth Gonzalez 59 year old female former remote [id number] smoker quitting in 1989 with PMH significant for bipolar disorder, DM, GERD, DVT, fibromyalgia, HLD, CASSIE, obesity status post gastric bypass, asthma, allergies, ESRD previously seen in [address] Macias for evaluation of pulmonary nodules as a preoperative evaluation for possible kidney transplant. Now being referred back to pulmonary clinic by Kristy Marcum for new lung nodule. Review of past CT of chest shows waxing and waning nodules. She was just seen in ED at [facility] for sob and chest pain. CTA chest obtained that was negative for PE but pertinent for pulmonary edema, bilateral effusions. Review of films shows that new RUL nodule has decreased in size but she has new semisolid nodules in RUL. No history of recurrent pneumonia or bronchitis although she relates a severe episode of pneumonia approximately 15 years ago resulting in ICU stay and need for supplemental oxygen for 3 months post discharge. Chest imaging shows mosaic pattern consistent with airways disease. She has a long history of asthma since childhood. She also has a history of allergies but never required immunotherapy. In the past, she had been on inhaled corticosteroids but had problems with recurrent thrush. Currently she has been using Primatene Mist. She has some days where her shortness of breath is worse than others and not necessarily related to need for dialysis. No chronic cough, mucus production, wheezing. DME: [employer] CPAP DATA: PFT 2021: Imaging / Diagnostic Studies: DATE OF EXAM: Jul 27 2024 2:44PM [facility] [id number] [facility] IMPRESSION: Although many of the pulmonary nodules, including a 1 cm nodular opacity anteriorly within the right middle lobe, are stable, other pulmonary nodules have resolved interval, while new pulmonary nodules have developed. Although findings suggest waxing/waning multifocal infectious or inflammatory disease, continued interval surveillance is recommended. Regions of groundglass attenuation and air-trapping within both lungs suggests reactive airways disease. No felix lymphadenopathy is seen within the chest. Chest CT 04/2023: [facility] Imaging Services [address] [place] [id number] CTA Chest W/WO Contrast MR#: [id number] Acct: [id number] Name: Margareth GONZALEZ Rep #: [id number] : 1965 F 59 From: Frank Tabor MD PCP: Dr. Ignacio Cheatham MD Status: REG ER Study: CTA Chest W/WO Contrast Date of Exam: 09/06/24 FINDINGS: Mild anasarca. No acute osseous abnormalities. Normal caliber thoracic aorta. Mild pericardial effusion. No pulmonary artery filling defects. Moderate bilateral pleural effusions. Interlobular septal thickening. Diffuse ground-glass opacities. No acute upper abdominal abnormalities. CT/CTA Chest W/WO Contrast IMPRESSION: No pulmonary embolism. Probable pulmonary edema. Moderate bilateral pleural effusions. Mild pericardial effusion. See HPI for interpretation PAST MEDICAL HISTORY Diagnosis Date Acute gastritis without mention of hemorrhage Allergic rhinitis Anaphylaxis Anemia Asthma ([facility]) Back pain Benign essential tremor Bipolar I disorder, most recent episode (or current) unspecified sectrum Bone mass Candidiasis, intertrigo Chronic kidney disease Contraceptive management Depression Diabetes ([facility]) Diarrhea DVT, lower extremity ([facility]) 08/2014 Right leg (6) Esophagitis ESRD (end stage renal disease) ([facility]) 07/03/2022 Facial fracture due to fall ([facility]) Fatigue Fibromyalgia Fracture Fracture of shaft of fibula GERD (gastroesophageal reflux disease) HLD (hyperlipidemia) on tricor Hyperlipidemia Hypertension Hypomagnesemia Hypopotassemia IBS (irritable bowel syndrome) Insomnia Intertrigo Knee pain Morbid obesity ([facility]) 03/11/2011 Myalgia Nausea Neck pain Neuropathy Nocturnal leg cramps Non-cardiac chest pain Obesity CASSIE (obstructive sleep apnea) 07/08/2011 Other polyp of sinus Other specified anemias Personal history of unspecified urinary disorder PMH - PAST MEDICAL HISTORY OF left knee surgery x3 Pulmonary nodules Pyelonephritis, acute Restless leg Ruptured appendicitis S/P gastric bypass Snoring Type II or unspecified type diabetes mellitus with ophthalmic manif (more content not included)... [facility] 09-12-2024 Telephone encounter Note Prescription Refill Information The patient has been identified by name and date of : Yes Caregiver verified no other encounters exist for this prescription request: Yes Caregiver confirmed with patient/requestor that no other refills are due, in the near future, with this provider at this time: Yes The last office visit in the department: 07/04/24 Does the patient have a future office visit with this provider/department: Yes 09/19/24 Requested Prescriptions Pending Prescriptions Disp Refills pregabalin (LYRICA) 25 mg capsule 90 capsule 0 Sig: Take 1 capsule by mouth daily at bedtime for 90 days. Nataly Burns LPN September 12, 2024 12:47 PM [facility] 09-07-2024 Telephone encounter Note agree [facility] 09-07-2024 Miscellaneous Notes agree Patient calling to state she was taken to [facility] ER yesterday via squad due to shortness of breath. Reports her SpO2 levels were in the 80's. States oxygen was applied on her and her SpO2 levels increased over time while at ER. Reports ER told her she had no clot, labs were okay and that she had fluid on her lungs. She was discharged without oxygen and told to follow up with Pulmonary which she has appt with on 09/12. During call, pt speaking in phrases. States she was still experiencing shortness of breath on room air, and her SpO2 levels today have been in the 80's. Reports chest pressure, like a weight that radiates into her back. Reports nausea and states I feel miserable. Lives alone. Denies feeling faint, lightheadedness, dizziness, and has no headache. Reports she has not been up much today, has been resting. Reports at dialysis yesterday the nurse told her that her lungs sounded diminished when auscultated. States all she wants to do is sleep. This nurse advised ER now. Pt agreeable and declined needing further assistance or needing emergency services contacted by this nurse. Pt stated she planned to inform her sister as soon as this call ended. Georgina Salmon RN documented in this encounter [facility] 09-07-2024 Telephone encounter Note Patient calling to state she was taken to [facility] ER yesterday via squad due to shortness of breath. Reports her SpO2 levels were in the 80's. States oxygen was applied on her and her SpO2 levels increased over time while at ER. Reports ER told her she had no clot, labs were okay and that she had fluid on her lungs. She was discharged without oxygen and told to follow up with Pulmonary which she has appt with on 09/12. During call, pt speaking in phrases. States she was still experiencing shortness of breath on room air, and her SpO2 levels today have been in the 80's. Reports chest pressure, like a weight that radiates into her back. Reports nausea and states I feel miserable. Lives alone. Denies feeling faint, lightheadedness, dizziness, and has no headache. Reports she has not been up much today, has been resting. Reports at dialysis yesterday the nurse told her that her lungs sounded diminished when auscultated. States all she wants to do is sleep. This nurse advised ER now. Pt agreeable and declined needing further assistance or needing emergency services contacted by this nurse. Pt stated she planned to inform her sister as soon as this call ended. Georgina Salmon RN [facility] 09-06-2024 Discharge summary [facility] 09-06-2024 Radiology Diagnostic study note [facility] Imaging Services [address] [place] [address] CTA Chest W/WO Contrast MR#: [id number] Acct: [id number] Name: Margareth GONZALEZ Rep #: [id number] : 1965 F 59 From: Zana Tabor MD PCP: Dr. Ignacio Cheatham MD Status: REG E R Study:CTA Chest W/WO Contrast Date of Exam: 09/06/24 Exam# [id number] Ordering Dr: Dot Robertson MD PROCEDURE: CTA CHEST W/WO CONTRAST 09/06/2024 REASON FOR EXAM: CP AND ELEVATED D-DIMER TECHNIQUE: CTA CHEST W/WO CONTRAST Multiplanar Sagittal and Coronal images were obtained. CONTRAST: Isovue 370 VOLUME: 84 mL One or more dose reduction techniques were used (e.g., Automated exposure control, adjustment of the mA and/or kV according to patient size, use of iterative reconstruction technique). RADIATION DOSE SUMMARY: CTDlvol: 16.62+ 14.10 mGy DLP: 479.34 mGycm COMPARISON: None. FINDINGS: Mild anasarca. No acute osseous abnormalities. Normal caliber thoracic aorta. Mild pericardial effusion. No pulmonary artery filling defects. Moderate bilateral pleural effusions. Interlobular septal thickening. Diffuse ground-glass opacities. No acute upper abdominal abnormalities. CT/CTA Chest W/WO Contrast IMPRESSION: No pulmonary embolism. Probable pulmonary edema. Moderate bilateral pleural effusions. Mild pericardial effusion. Reading Location: [id number] CC: Dr. Johnathon Robertson MD; Dr. Ignacio Cheatham MD ~ Allergist/Md: Signed [facility] 09-06-2024 Radiology Diagnostic study note [facility] Imaging Services [address] [place] [id number] Chest 1 View (Portable) MR#: [id number] Acct: [id number] Name: Margareth GONZALEZ Rep #: [id number] : 1965 F 59 From: Zana Tabor MD PCP: Dr. Ignacio Cheatham MD Status: REG E R Study:Chest 1 View (Portable) Date of Exam: 09/06/24 Exam# [id number] Ordering Dr: Dot Robertson MD PROCEDURE: CHEST 1 VIEW (PORTABLE) 09/06/2024 REASON FOR EXAM: CHEST PAIN TECHNIQUE: Frontal view of the chest. COMPARISON: 04/02/2024. FINDINGS: The heart is normal in size. Left basilar and midlung and right basilar opacities which may represent asymmetric edema or infection. No visualized pleural effusion. No acute osseous abnormalities. RAD/Chest 1 View (Portable) IMPRESSION: Pulmonary findings as above. Reading Location: [id number] CC: Dr. Johnathon Robertson MD; Dr. Ignacio Cheatham MD ~ Allergist/Md: Signed [facility] 09-06-2024 Telephone encounter Note patient called in stating that she had Shortness of Breath and chest pain since Thursday and s/s seem to be getting worse. Patient was wanting an appt, but has been referred to the ER for evaluation due to s/s. patient agreed and verbalized understanding. [facility] 09-06-2024 Miscellaneous Notes patient called in stating that she had Shortness of Breath and chest pain since Thursday and s/s seem to be getting worse. Patient was wanting an appt, but has been referred to the ER for evaluation due to s/s. patient agreed and verbalized understanding. documented in this encounter [facility] 09-06-2024 Discharge summary Note Date/Time September 06, 2024 11:26pm [facility] Medical Records Department [address] [place] [address] Emergency Department Summary 09/06/24 MR#: [id number] Acct: [id number] Name: Margareth GONZALEZ Rep #:[id number] : 1965 59 From: Johnathon Robertson MD PCP: Dr. Ignacio Cheatham MD Status:REG E R Location: ED HPI History of Present Illness Chief Complaint: Chest Pain Detail of Chief Complaint: Shortness of breath. Informant: patient Onset/Context/Timing Onset: Days (Started on Thursday. Better yesterday until last evening.) Activity at onset: gradual Timing: Intermittent Quality: Positive for Aching Location: Substernal Current Severity: Mild Maximum Severity: Mild Worsened By: Nothing Relieved By: Nothing Associated Symptoms: Positive for Dyspnea; Negative for Nausea, Vomiting, Diaphoresis, Cough, Fever, Lightheadedness, Acid Reflux or Palpitations Narrative Narrative: 59-year-old female history of end-stage renal disease dialysis been dialysis for2 years. Also history of diabetes, COPD, DVT, bipolar and hypertension. She benito Plavix and aspirin from recent left fistulogram. Patient is on Thursday she started having shortness of breath associated chest pain across her chest. She said it was better yesterday and again started last night. She says worse at night. Not associated with exertion. No cardiac history. No prior cardiac cath. She has had a prior DVT but no PE. Denies any pleuritic pain or hemoptysis. Prior Similar Symptoms: Yes Recent Illness/Hospitalization: Yes CVD Risk Factors: Positive for Hypertension and Diabetes PE Risk Factors: Positive for Recent Travel/Surgery and Prior DVT or PE; Negative for Cancer or OCP + Smoking + >/=35 TAD Risk Factors: Negative for Marfan's Syndrome PFSH [facility] Medical History Fracture of fibula, right, closed Anemia Hyperkalemia Osteoarthritis of right knee Pathological fracture, right tibia, initial encounter for fracture Diabetes Dialysis patient Kidney disease GERD (gastroesophageal reflux disease) Sleep apnea Former smoker Asthma DVT (deep venous thrombosis) ESRD (end stage renal disease) on dialysis Fracture of right lower extremity Inability to walk Diabetes mellitus, type 2 Obesity Chronic anemia COPD with asthma Bipolar disorder Anxiety and depression HLD (hyperlipidemia) HTN (hypertension) Former tobacco use Neuropathy Fibromyalgia Kidney disease, chronic, stage IV (GFR 15-29 ml/min) History of tobacco use History of diabetes mellitus, type II History of COPD History of bipolar disorder Benign essential hypertension History of asthma Home Medications ?Medication ?Instructions ?Recorded ?Last Taken ?Type cholecalciferol (vitamin D3) 25 5,000 unit PO DAILY CORNELL PPLEMENT 10/03/13 01/18/23 History mcg (1,000 unit) capsule (Vitamin D3) omeprazole 20 mg capsule,delayed 20 mg PO DAILY 03/16/24 History release glipizide 5 mg tablet 10 mg PO DAILY DIABETES 02/2 /01/18/23 History melatonin 5 mg capsule 10 mg PO QHS sleep 05/27/16 01/18/23 History atorvastatin 40 mg tablet 40 mg PO QHS CHOLESTEROL 02/2101/18/23 History dulaglutide 1.5 mg/0.5 mL 1.5 mg subcut CORNELL DIABETES 01/18/23 History subcutaneous pen injector (Trulicity) sevelamer carbonate 800 mg tablet 1,600 mg PO TID 08/22 Unknown History aspirin 81 mg capsule 81 mg PO DAILY 06/29/23 Unkn own History hydroxyzine HCl 50 mg tablet 50 mg PO Q6H PRN itching 06/29/23 Unknown History acetaminophen 325 mg capsule 650 mg PO Q6H PRN pain Unknown History (Tylenol) ondansetron HCl 4 mg tablet 4 mg PO Q8H PRN PRN nausea and 07/02/23 Unknown History vomiting oxycodone-acetaminophen 5 mg-325 1 tab PO Q6H PRN PRN Pain 3 days 07/24/23 Unknown Rx mg tablet #12 TABLETS clopidogrel 75 mg tablet 75 mg PO DAILY 09/06/24 Unkn own History dulaglutide 0.75 mg/0.5 mL 0.75 mg subcut QWEEK Unknown History subcutaneous pen injector (Trulicity) duloxetine 30 mg capsule,delayed 30 mg PO DAILY Unknown History release nifedipine 90 mg tablet,extended mg PO 09/06/24 Unknow n History release pregabalin 25 mg capsule 25 mg PO QHS 09/06/24 Unknow n History Allergy/AdvReac Type Severity Reaction Status Date / Time [facility] Allergy Unknown UNKNOWN Verified 09/06/24 18:45 mold Allergy Unknown unknown Verified 09/06/24 18:45 lisinopril Allergy unknown Verified 09/06/24 18:45 Penicillins Allergy Anaphylaxis Verified 09/06/24 18:45 tetracycline (Tetracycline) Allergy Anaphylaxis Verified 09/06/24 18:45 codeine AdvReac Abd Verified 09/06/24 18:45 cramps/diarrhea diphenhydramine HCl (From AdvReac Upset Verified 09/06/24 18:45 Benadryl) Stomach hydrocodone bitartrate (From AdvReac Abd Verified 09/06/24 18:45 Vicodin) cramps/diarrhea NSAIDS (Non-Steroidal AdvReac Unknown Verified 09/06/24 18:45 Anti-Inflamma Family History Mother Heart disease Hypertension Diabetes Kidney disease Father Diabetes Surgical History H/O cataract extraction H/O vitrectomy History of appendectomy History of cholecystectomy H/O vascular surgery H/O gastric bypass S/P cholecystectomy S/P appendectomy Social History household members: none Smoking Status: Former smoker how long ago did patient quit smoking: Quit age 24. alcohol intake: never substance use type: does not use ROS ROS ED ROS Narrative Denies recent illness. Chest pain and shortness of breath. Constitutional Constitutional ED: Denies chills or fever(s) Eyes Eyes: Reports none ENT ENT ED: Denies ear pain Cardiovascular Cardiovascular: Reports as per HPI and chest pain Respiratory/Chest Respiratory/Chest: Reports dyspnea; Denies cough or dyspnea on exertion Gastrointestinal Gastrointestinal: Denies abdominal pain, constipation, diarrhea, melena, nausea or vomiting Genitourinary Genitourinary ED: Denies dysuria or hematuria Musculoskeletal Musculoskeletal: Denies arthralgias or back pain Integumentary Denies abscess Neurologic Neurologic: Denies headache(s) Psychiatric Psychiatric: Denies anxiety Endocrine Endocrinology: Denies cold intolerance Hematologic/Lymphatic Hematologic/Lymphatic: Denies easy bleeding, easy bruising or lymphadenopathy Allergic/Immunologic Allergic/Immunologic ED: Denies mouth swelling, tongue swelling or urticaria EXAM Physical Exam Narrative Exam Narrative: For 9-year-old female sitting upright in bed. No distress. Vital signs are stable afebrile. Pulse ox 91% on room air no signs hypoxia. H EENT exam pupilsround react light. Mytrex members. Neck nontender. Lungs clear to auscultation bilaterally. Heart tachycardic 110 no murmur. Chest wall ribs nontender. Abdomen soft nontender. Moving all 4 extremities. Calves are nontender without edema or cords. She has a left dialysis fistula on her forearm it has a palpable pulse. Normal nursing service administrator strength. Normal dorsi plantarflexion. Back nontender. Neurologically she is awake alert. Answering questions following commands. Const Vital Signs: 09/06/24 18:39 09/06/24 18:42 09/06/24 19:10 Temperature 98.4 F 98.4 F Temperature Source Oral Oral Pulse Rate 114 H 113 H Respiratory Rate 20 H 21 H Blood Pressure 159/94 H 159/94 H Blood Pressure Mean 115 115 Pulse Ox 91 91 Oxygen Delivery Method Room Air Room Air Room Air 09/06/24 19:42 09/06/24 20:00 09/06/24 21:00 Temperature 98.6 F 98.4 F Temperature Source Oral Oral Pulse Rate 106 H 104 H 103 H Respiratory Rate 18 18 16 Blood Pressure 154/75 H 167/75 H 173/78 H Blood Pressure Mean 101 105 106 Pulse Ox 90 93 92 Oxygen Delivery Method Room Air Room Air 09/06/24 22:00 Temperature Temperature Source Pulse Rate 104 H Respiratory Rate 14 Blood Pressure 173/85 H Blood Pressure Mean 111 Pulse Ox 95 Oxygen Delivery Method Positive well nourished and well developed; Negative for cachectic, contracturesor unkempt General Appearance ED: well developed and NAD; Negative for unkempt, cachectic or contractures Nutritional Appearance: Negative for cachectic HEENT Reports moist mucous membranes normocephalic and atraumatic Eyes PERRL and EOMs intact bilaterally Neck no lymphadenopathy, supple and no JVD General: Negative for tenderness Chest Wall inspection of chest normal and palpation of chest normal Chest: Negative for tenderness Resp normal respiratory effort and clear to auscultation bilaterally Effort and Inspection: Negative for respiratory distress Auscultation: Negative for rales, rhonchi, wheezes or diminished lung sounds Cardio regular rhythm, S1 normal heart sound and S2 normal heart sound; Negative for regular rate Rate: tachycardic Peripheral Pulses: pulses 2+ throughout GI normal to inspection, nondistended, normoactive bowel sounds, soft to palpation,non-tender, non-distended and no masses Back/Spine no CVA tenderness and no thoracic nor lumbar tenderness General Back: Negative for CVA tenderness Cervical Spine: Negative for cervical spine tenderness Extremity normal to inspection Extremity Narrative: Calves nontender. No edema or cords. General Extremety ED: Negative for edema, pulses abnormal or tenderness General Extremity: Negative for edema or pulses abnormal Neuro oriented x3 and CN's II-XII intact bilaterally Sensorium / Orientation: awake, alert, oriented to person and oriented to place;Negative for oriented to time, confused, lethargic or stuporous Motor Exam: strength 5/5 throughout Psych mental status grossly normal Appearance: Negative for unkempt Mood & Affect: Negative for depressed Skin no rashes or lesions noted and no wounds General Skin Exam: Negative for jaundice Rashes: No rashes noted Trauma: Negative for abrasion or laceration MDM MDM MDM Narrative Medical decision making narrative: Female with shortness of breath and atypical chest pain. Exam benign. Not reproducible. Showing her cardiac workup and really does not sound cardiac chest pain. She has had a history of a DVT we will check a D-dimer if it is negative I will not CAT scan her chest if it is positive I will. Repeat exam patient doing well at 11:15 PM. I went over her test results. Patient is feeling well. She has not had any recent exertional chest pain. She is comfortable being discharged to home. Shewill follow-up with her physician. Return if worse. History & Record Review Discussion w/independent historian: Patient Additional record(s) reviewed:: Prior inpatient record, Prior outpatient record,Prior ED visit and Prior labs Lab Data Attestation: I reviewed the patient's lab results. Lab results narrative: CBC shows a white count of 4.3. H&H 11 and 33. Platelets 176. D-dimer is elevated 1.9 a CTA of the chest to be obtained. Electrolytes show sodium 133. Gap 14. BUN of 17 creatinine 4.0. Glucose 174. Troponin 89. 2-hour troponin is 90. Chest x-ray pulmonary edema. CTA chest pulmonary edema, small pericardial effusion. Small pleural effusions. Labs: Laboratory Results - last 24 hr 09/06/24 09/06/24 18:50 21:00 WBC 4.3 L RBC 3.53 L Hgb 11.0 L Hct 33.9 L MCV 96.0 MCH 31.2 MCHC 32.4 RDW Std Deviation 49.5 H RDW Coeff of Ben 14.3 Plt Count 176 MPV 10.4 Immature Gran % (Auto) 0.200 Neut % (Auto) 69.2 Lymph % (Auto) 18.7 L Canyon % (Auto) 7.5 Eos % (Auto) 3.7 Baso % (Auto) 0.7 Absolute Neuts (auto) 3.0 Absolute Lymphs (auto) 0.80 L Nucleated RBC % 0 D-Dimer Quant (PE/DVT) 1.90 H* Sodium 133 Potassium 4.8 Chloride 93 L Carbon Dioxide 26.5 Anion Gap 14 BUN 17 Creatinine 4.01 H Estim Creat Clear Calc 17.48 L Est GFR (MDRD) Non-Af 12 L BUN/Creatinine Ratio 4.2 L Glucose 174 H Calcium 8.8 Troponin T High Sens 89 H* Troponin T Hi Sens 2 Hr 90 H* Radiography Chest X-Ray - ED: 1 View, Read by ED Physician, Read by Radiologist, Heart, Mediastinum, Bony Structures, Chronic Changes and CHF Diagnostic Testing: Clinical Impression(s) from Imaging Studies Chest X-Ray 09/06/24 18:59 IMPRESSION: Pulmonary findings as above. Reading Location: [place] [address] Chest CTA 09/06/24 21:31 IMPRESSION: No pulmonary embolism. Probable pulmonary edema. Moderate bilateral pleural effusions. Mild pericardial effusion. Reading Location: [place] [address] Chest x-ray, single view, portable, interpreted by myself the radiologist shows normal cardiac silhouette. Bilateral pulmonary edema. Rhythm Strip Rhythm Strip: Sinus Tach Rate: 114 Ectopy: None EKG Initial EKG: Attestation: I personally reviewed and interpreted this EKG as follows: Interpretation: No Acute Injury Pattern and Sinus Tachycardia Comments: Sinus tachycardia rate of 114 no acute signs of GA. Inverted T waves in lead V5 and V6. Seen on prior EKGs. Prior EKG tracings: available for review Prior: Unchanged Discharge Plan Triage Chief Complaint: Chest Pain ED Provider: Johnathon Robertson Dx/Rx/DC Orders Clinical Impression: Atypical chest pain, History of end stage renal disease, History of diabetes mellitus Instructions: ED Chest Pain, Uncertain Cause Prescriptions: No Action cholecalciferol (vitamin D3) [Vitamin D3] 1,000 UNIT capsule 5,000 unit PO DAILY omeprazole 20 MG capsule 20 mg PO DAILY glipizide 5 MG tablet 10 mg PO DAILY Patient Comments: per pt hasn't taken in approx 2 months r/t insurance issues & being unable toafford. melatonin 5 MG capsule 10 mg PO QHS atorvastatin 40 mg tablet 40 mg PO QHS calcitriol 0.25 mcg capsule 1.5 mcg PO .TuThursSat Patient Comments: 6 capsules per pt on days of dialysis Trulicity 1.5 mg/0.5 mL pen injector 1.5 mg SUBCUT CORNELL Patient Comments: PT STATED HASNT USED IN TWO MONTHS R/T INSURANCE ISSUES amitriptyline 100 mg tablet 100 mg PO QHS sevelamer carbonate 800 mg tablet 1,600 mg PO TID acetaminophen [Tylenol] 325 mg capsule 650 mg PO Q6H PRN (Reason: pain ) ondansetron HCl 4 mg tablet 4 mg PO Q8H PRN PRN (Reason: nausea and vomiting) oxycodone-acetaminophen 5-325 mg tablet 1 tab PO Q6H PRN PRN (Reason: Pain) 3 Days Qty: 12 0RF Patient Comments: per pt no longer taking aspirin 81 mg capsule 81 mg PO DAILY hydroxyzine HCl 50 mg tablet 50 mg PO Q6H PRN (Reason: itching) sertraline 50 mg tablet 50 mg PO DAILY nifedipine 30 mg tablet extended release 24hr 30 mg PO QHS Primary Care Provider: Ignacio Cheatham Referrals: Ignacio Cheatham MD [Primary Care Provider] - 3-5 Days Activity Restrictions/Additional Instructions: Follow-up with your doctor to ensure you are improving. Your tests today were unremarkable. I do not know the specific cause of your pain. Follow-up with your doctor for further evaluation. May want to consider discussing with them outpatient stress testing. Return the emergency department if you are feeling a lot worse. Print Language: Citizen Of [place] Disposition Disposition: Home, Self Care What to do if you have Problems For any increased pain, shortness of breath, bleeding, nausea or vomiting, chestpain, or any unexpected problems, contact your Primary Care Provider. Call [facility] ([phone]) or report to the closest Emergency Room. Call 911 if necessary. 09/06/245 <Electronically signed by Johnathon Robertson MD> Cosigner Signature (if applicable): CC: Dr. Ignacio Cheatham MD ~ Signed [facility] Work Phone: [phone] 231-788706-25-2025 Telephone encounter Note* Telephone Encounter - Chloe Ellington RN - 08/24/2024 12:30 PM EDT You will receive a call the day before with a time to arrive. Nothing to eat or drink after MN, maytake meds with sips of water,hold water pills if you take any. You will need someone to bring you and take you home and cannot drive for 24 hours. Entrance A, take elevator to 1st floor surge area. [facility]06-25-2025 Miscellaneous Notes* Telephone Encounter - Chloe Ellington RN - 08/24/2024 12:30 PM EDT You will receive a call the day before with a time to arrive. Nothing to eat or drink after MN, maytake meds with sips of water,hold water pills if you take any. You will need someone to bring you and take you home and cannot drive for 24 hours. Entrance A, take elevator to 1st floor surge area. [facility] Telephone encounter Note * Telephone Encounter - Ashley Fraire - 08/15/2024 1:43 PM EDT Spoke to patient to move her fistulagram to August 26 because that is when he can get transpiration. Encounter closed. [facility] Work Phone: [phone] Miscellaneous Notes* Telephone Encounter - Ashley Fraire - 08/15/2024 1:43 PM EDT Spoke to patient to move her fistulagram to August 26 because that is when he can get transpiration. Encounter closed. * Telephone Encounter - Ashley Fraire - 08/15/2024 11:33 AM EDT Spoke to patient to offer a new date, she will check with her transportation and call back. * Telephone Encounter - Jenni Castro RN - 08/12/2024 4:13 PM EDT Patient calling, she is scheduled for fistulagram on 08/19 however needs to change the time from 1245 to 9 am if possible Attempted to call patient but unable to leave a message Please call patient to reschedule [phone] documented [facility] Telephone encounter Note * Telephone Encounter - Ashley Fraire - 08/15/2024 11:33 AM EDT Spoke to patient to offer a new date, she will check with her transportation and call back. [facility]06-13-2025 Telephone encounter Note* Telephone Encounter - Jenni Castro RN - 08/12/2024 4:13 PM EDT Patient calling, she is scheduled for fistulagram on 08/19 however needs to change the time from 1245 to 9 am if possible Attempted to call patient but unable to leave a message Please call patient to reschedule [phone] [facility]06-11-2025 Instructions* Patient Instructions* Hever Cheema APRN.CNP - 08/10/2024 2:48 PM EDT ASSESSMENT/PLAN: 1. Acute exacerbation of chronic obstructive pulmonary disease (HCC) - ICD9: 491.21, ICD10: J44.1 - Continue current medications - Begin prednisone burst - PREDNISONE 20 MG TABLET - Begin antibiotics related to sputum production, estimated creatinine clearance of 28.12 mL/min per Cockcroft-equation and patient has tolerated antibiotic in May 2023; however, you may take antibiotic as prescribed - DOXYCYCLINE HYCLATE 100 MG CAPSULE - may use inhaler for relief of any dyspnea - please attend dialysis tomorrow - use CPAP machine at night once arrived in the mail 2. Irritable bowel syndrome, unspecified type - ICD9: 564.1, ICD10: K58.9 - anti-emetic prescription refilled for intermittent nausea associated with IBS - ONDANSETRON 4 MG DISINTEGRATING TABLET - visit nearest emergency room for worsening SOB, chest pain, dizziness and abdominal pain Allyssa Vázquez NP student TEACHING PROVIDER (Physician/PA/CUSTOMS ENTRY CLERK) NOTE OF PERSONAL INVOLVEMENT IN CARE: I have personally seen and examined the patient and performed the medical decision-making components. I have reviewed the Advanced Practice Registered Nurse (CUSTOMS ENTRY CLERK) Student's documentation and verified the findings in the note as written. Any additions or changes are noted in bold/italics. Signature: Hever Cheema Date: 08/10/2024 Time: 2:48 PM documented in this [facility]06-[facility]-2025 NoteHNO ID: [id number] Author: HEVER CHEEMA APRN.BENEFITS ADMINISTRATOR Service: ? Author Type: Nurse Practitioner Type: Progress Notes Filed: 08/10/2024 14:49 Note Text: Subjective Patient ID: Arnold is a 59 year old female who presents for No chief complaint on file.. The history is provided by the patient. No speech and language tutor was used. Patient presents to clinic via sister's personal vehicle with cough and congestion h/o COPD, ESRD with HD T//Thu, DM, BPD, HTN, IBS and childhood asthma +increased prod mucus Clear sputum +pain across chest (tenderness) radiating to upper back Dx with pulmonary nodules, last CT chest 07/27 States CPAP ordered and should arrive soon Tylenol and mucinex relieved s/s No fever, chills, V/D or abd pain +slight nausea r/t IBS Missed HD yesterday via [facility] Last HD on Sunday 08/06 access left forearm No smoking, ETOH nor street drugs PAST MEDICAL HISTORY Diagnosis Date Acute gastritis without mention of hemorrhage Allergic rhinitis Anaphylaxis Anemia Back pain Benign essential tremor Bipolar I disorder, most recent episode (or current) unspecified sectrum Bone mass Candidiasis, intertrigo Chronic kidney disease Contraceptive management Depression Diabetes (HCC) Diarrhea DVT, lower extremity ([facility]) 08/2014 Right leg (6) Esophagitis ESRD (end stage renal disease) ([facility]) 07/03/2022 Facial fracture due to fall (HCC) Fatigue Fibromyalgia Fracture Fracture of shaft of fibula GERD (gastroesophageal reflux disease) HLD (hyperlipidemia) on tricor Hyperlipidemia Hypertension Hypomagnesemia Hypopotassemia IBS (irritable bowel syndrome) Insomnia Intertrigo Knee pain Morbid obesity (HCC) 03/11/2011 Myalgia Nausea Neck pain Neuropathy Nocturnal leg cramps Non-cardiac chest pain Obesity CASSIE (obstructive sleep apnea) 07/08/2011 Other polyp of sinus Other specified anemias Personal history of unspecified urinary disorder PMH - PAST MEDICAL HISTORY OF left knee surgery x3 Pulmonary nodules Pyelonephritis, acute Restless leg Ruptured appendicitis S/P gastric bypass Snoring Type 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, not stated as uncontrolled(250.50) on oral medications and Lanuts Unspecified asthma(493.90) on inhalers Unspecified essential hypertension on medical management Upper abdominal pain Urinary frequency Vitamin D deficiency PAST SURGICAL HISTORY Procedure Laterality Date CHOLECYSTECTOMY 04/02/2011 COLONOSCOPY W/BIOPSY SINGLE/MULTIPLE 12/16/2007 DILATION AND CURETTAGE DXAND/THER NONOBSTETRIC Dilation AND curettage EGD TRANSORAL BIOPSY SINGLE/MULTIPLE 12/16/2007 ESOPHAGOGASTRODUODENOSCOPY TRANSORAL DIAGNOSTIC age 14 EGD LAPAROSCOPIC APPENDECTOMY 05/16/2011 MIDLINE INSERTION/CONSULT 07/29/2012 Lap Paul-en-Y gastric bypass PAST SURGICAL HISTORY OF age 14 left knee surgery, for dislocation PAST SURGICAL HISTORY OF age 5 warts removed PAST SURGICAL HISTORY OF 03/02/2007 laser surgery to both eyes for diabetic retinopathy PAST SURGICAL HISTORY OF 04/26/2008 Bilateral eye surgery- vitrectomy PAST SURGICAL HISTORY OF 06/30/2008 Left eye air fluid exchange PAST SURGICAL HISTORY OF 04/09, 07/07 retinal vitrectomies PAST SURGICAL HISTORY OF Left 07/24/2022 Left forearm AVG with [address] Valenzuela STRESS TEST 200p, 2015 Normal results TUBAL LIGATION HX ablation at the same time ALLERGIES Vicodin [Hydrocodone-Acetaminophen], Balsam 115, Balsam Juan, Barium Sulfate, Benadryl Allergy Decongestant, Benadryl [Diphenhydramine Hcl], Codeine, Lisinopril, Mold, Nsaids (Non-Steroidal Anti-Inflammatory Drug), Penicillins, Seasonal Allergies, Tetracycline, Vanilla Extract, and Vanilla Extract Flavor MEDICATIONS CPAP/BIPAP/OTHER APAP 5-20 cmH2O DME [facility] Blood-Glucose Meter (ONETOUCH VERIO FLEX METER) Dispense one meter kit. E11.9 blood sugar diagnostic (ONETOUCH VERIO TEST STRIPS) test strip Checks once per day to calibrate CGM lancets (ONETOUCH DELICA PLUS LANCET) 33 gauge Checks once per day to calibrate CGM E11.9 Blood-Glucose Sensor (FREESTYLE FESTUS 3 PLUS SENSOR) natty CHANGE SENSOR EVERY 15 days, USE FOR CONTINUOUS GLUCOSE MONITORING. E11.9 DIALYSIS PATIENT Blood-Glucose Meter,Continuous (FREESTYLE FESTUS 3 READER) misc Dispense one reader kit. E11.9 DIALYSIS PATIENT dulaglutide (TRULICITY) 0.75 mg/0.5 mL pen injector Inject 0.75 mg subcutaneously one time a week. DX: E11.40 Type 2 DM pregabalin (LYRICA) 25 mg capsule Take 1 capsule by mouth daily at bedtime for 90 days. hydrOXYzine HCl (ATARAX) 50 mg tablet Take 1 tablet by mouth every 6 hours as needed for itching/rash. omeprazole (PRILOSEC) 20 mg capsule Take 1 capsule by mouth once daily. calcitriol (ROCALTROL) 0.25 mcg capsule 6 pills daily 3X/week -- Per diaylsis sevelamer carbonate (RENVELA) 800 mg tablet Two tablets by mouth (more content not included)...[facility]06-11-2025 History of Present illness Narrative* Hever Cheema APRN.BENEFITS ADMINISTRATOR - 08/10/2024 1:23 PM EDT Subjective Patient ID: Arnold is a 59 year old female who presents for No chief complaint on file.. The history is provided by the patient. No speech and language tutor was used. Patient presents to clinic via sister's personal vehicle with cough and congestion h/o COPD, ESRD with HD T//Thu, DM, BPD, HTN, IBS and childhood asthma +increased prod mucus Clear sputum +pain across chest (tenderness) radiating to upper back Dx with pulmonary nodules, last CT chest 07/27 States CPAP ordered and should arrive soon Tylenol and mucinex relieved s/s No fever, chills, V/D or abd pain +slight nausea r/t IBS Missed HD yesterday via [facility] Last HD on Sunday 08/06 access left forearm No smoking, ETOH nor street drugs PAST MEDICAL HISTORY Diagnosis Date Acute gastritis without mention of hemorrhage Allergic rhinitis Anaphylaxis Anemia Back pain Benign essential tremor Bipolar I disorder, most recent episode (or current) unspecified sectrum Bone mass Candidiasis, intertrigo Chronic kidney disease Contraceptive management Depression Diabetes ([facility]) Diarrhea DVT, lower extremity ([facility]) 08/2014 Right leg (6) Esophagitis ESRD (end stage renal disease) ([facility]) 07/03/2022 Facial fracture due to fall ([facility]) Fatigue Fibromyalgia Fracture Fracture of shaft of fibula GERD (gastroesophageal reflux disease) HLD (hyperlipidemia) on tricor Hyperlipidemia Hypertension Hypomagnesemia Hypopotassemia IBS (irritable bowel syndrome) Insomnia Intertrigo Knee pain Morbid obesity ([facility]) 03/11/2011 Myalgia Nausea Neck pain Neuropathy Nocturnal leg cramps Non-cardiac chest pain Obesity CASSIE (obstructive sleep apnea) 07/08/2011 Other polyp of sinus Other specified anemias Personal history of unspecified urinary disorder PMH - PAST MEDICAL HISTORY OF left knee surgery x3 Pulmonary nodules Pyelonephritis, acute Restless leg Ruptured appendicitis S/P gastric bypass Snoring Type 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, not stated as uncontrolled(250.50) on oral medications and Lanuts Unspecified asthma(493.90) on inhalers Unspecified essential hypertension on medical management Upper abdominal pain Urinary frequency Vitamin D deficiency PAST SURGICAL HISTORY Procedure Laterality Date CHOLECYSTECTOMY 04/02/2011 COLONOSCOPY W/BIOPSY SINGLE/MULTIPLE 12/16/2007 DILATION & CURETTAGE DX&/THER NONOBSTETRIC Dilation & curettage EGD TRANSORAL BIOPSY SINGLE/MULTIPLE 12/16/2007 ESOPHAGOGASTRODUODENOSCOPY TRANSORAL DIAGNOSTIC age 14 EGD LAPAROSCOPIC APPENDECTOMY 05/16/2011 MIDLINE INSERTION/CONSULT 07/29/2012 Lap Paul-en-Y gastric bypass PAST SURGICAL HISTORY OF age 14 left knee surgery, for dislocation PAST SURGICAL HISTORY OF age 5 warts removed PAST SURGICAL HISTORY OF 03/02/2007 laser surgery to both eyes for diabetic retinopathy PAST SURGICAL HISTORY OF 04/26/2008 Bilateral eye surgery- vitrectomy PAST SURGICAL HISTORY OF 06/30/2008 Left eye air fluid exchange PAST SURGICAL HISTORY OF 04/09, 07/07 retinal vitrectomies PAST SURGICAL HISTORY OF Left 07/24/2022 Left forearm AVG with [address] x[address] Valenzuela STRESS TEST 200p, 2015 Normal results TUBAL LIGATION HX ablation at the same time ALLERGIES Vicodin [Hydrocodone-Acetaminophen], Balsam 115, Balsam Juan, Barium Sulfate, Benadryl Allergy Decongestant, Benadryl [Diphenhydramine Hcl], Codeine, Lisinopril, Mold, Nsaids (Glb-UyfqpviglOxej-Abvahwuqntnq Drug), Penicillins, Seasonal Allergies, Tetracycline, Vanilla Extract, and Vanilla Extract Flavor MEDICATIONS CPAP/BIPAP/OTHER APAP 5-20 cmH2O DME [facility] Blood-Glucose Meter (AdLemonsUCH VERIO FLEX METER) Dispense one meter kit. E11.9 blood sugar diagnostic (ONETOUCH VERIO TEST STRIPS) test strip Checks once per day to calibrate CGM lancets (ONETOUCH DELICA PLUS LANCET) 33 gauge Checks once per day to calibrate CGM E11.9 Blood-Glucose Sensor (FREESTYLE FESTUS 3 PLUS SENSOR) natty CHANGE SENSOR EVERY 15 days, USE FOR CONTINUOUS GLUCOSE MONITORING. E11.9 DIALYSIS PATIENT Blood-Glucose Meter,Continuous (FREESTYLE FESTUS 3 READER) misc Dispense one reader kit. E11.9 DIALYSIS PATIENT dulaglutide (TRULICITY) 0.75 mg/0.5 mL pen injector Inject 0.75 mg subcutaneously one time a week. DX: E11.40 Type 2 DM pregabalin (LYRICA) 25 mg capsule Take 1 capsule by mouth daily at bedtime for 90 days. hydrOXYzine HCl (ATARAX) 50 mg tablet Take 1 tablet by mouth every 6 hours as needed for itching/rash. omeprazole (PRILOSEC) 20 mg capsule Take 1 capsule by mouth once daily. calcitriol (ROCALTROL) 0.25 mcg capsule 6 pills daily 3X/week -- Per diaylsis sevelamer carbonate (RENVELA) 800 mg tablet Two tablets by mouth with meals -- Ordered by dialysis NIFEdipine ER (PROCARDIA XL) 30 mg 24 hr tablet Take 3 tablets by mouth every afternoon. -- per dialysis ondansetron orally disintegrating (ZOFRAN ODT) 4 mg disintegrating tablet Take 1 tablet by mouth every 8 hours as needed for nausea/vomiting. DULoxetine (CYMBALTA) 30 mg capsule Take 1 capsule by mouth once daily. atorvastatin (LIPITOR) 40 mg tablet Take 1 tablet by mouth daily at bedtime. For cholesterol. acetaminophen (TYLENOL) 500 mg tablet Take 1,000 mg by mouth every 12 hours. melatonin 5 mg tablet Take 5 mg by mouth. As needed. cholecalciferol (VITAMIN D3) 5,000 unit tab Take 5,000 Units by mouth twice daily. Kkodecxd-Uh-Tog-Fe-FA ( VITAMIN) ORAL Tab Take 1 tablet by mouth once daily. FAMILY HISTORY Problem Relation Age of Onset Thyroid Father Blindness Mother Diabetic retinopathy Diabetes Mother from renal disease Coronary Artery Disease Mother other (Diabetic Retinaopathy) Mother Cancer Mother uterine Stroke Mother Kidney Disease Mother Thyroid Sister skin cancer Kidney Disease Sister Diabetes Sister Diabetes Sister Coronary Artery Disease Brother Diabetes Brother Coronary Artery Disease Brother Colon Cancer Other none Breast Cancer Other none Social History Tobacco Use Smoking status: Former Current packs/day: 0.00 Average packs/day: 2.0 packs/day for 6.0 years (12.0 ttl pk-yrs) Types: Cigarettes Start date: 08/01/1983 Quit date: 07/31/1989 Years since quittin.0 Smokeless tobacco: Never Tobacco comments: Quit at age 24 Vaping Use Vaping status: Never Used Substance Use Topics Alcohol use: Not Currently Comment: rare Drug use: No Comment: Tried marijuana once - never used it again. Objective LMP 09/20/2014 Physical Exam Vitals and nursing note reviewed. Constitutional: General: She is awake. Appearance: She is well-groomed. HENT: Head: Normocephalic. Right Ear: Hearing and tympanic membrane normal. Left Ear: Hearing and tympanic membrane normal. Nose: Nose normal. Right Turbinates: Not pale. Left Turbinates: Not pale. Mouth/Throat: Lips: No lesions. Pharynx: Oropharynx is clear. Tonsils: 1+ on the right. 1+ on the left. Eyes: General: Lids are normal. Lids are everted, no foreign bodies appreciated. Extraocular Movements: Extraocular movements intact. Conjunctiva/sclera: Conjunctivae normal. Pupils: Pupils are equal, round, and reactive to light. Neck: Trachea: Trachea normal. Cardiovascular: Rate and Rhythm: Normal rate. Pulses: Normal pulses. Radial pulses are 2+ on the right side and 2+ on the left side. Heart sounds: Normal heart sounds. Arteriovenous access: Left arteriovenous access is present. Comments: AV loop graft to left forearm: +thrill, +bruit Pulmonary: Effort: Pulmonary effort is normal. Breath sounds: Normal breath sounds and air entry. Chest: Chest wall: No tenderness. Comments: Denies chest +ttp Admits to chest congestion Abdominal: General: Bowel sounds are normal. Palpations: Abdomen is soft. Tenderness: There is no abdominal tenderness. Musculoskeletal: General: Normal range of motion. Cervical back: Full passive range of motion without pain and normal range of motion. Right lower leg: No edema. Left lower leg: No edema. Lymphadenopathy: Cervical: Cervical adenopathy present. Upper Body: Right upper body: No supraclavicular adenopathy. Left upper body: No supraclavicular adenopathy. Skin: General: Skin is warm. Capillary Refill: Capillary refill takes less than 2 seconds. Comments: +tattoos present +scarring to bilateral legs Neurological: General: No focal deficit present. Mental Status: She is alert and oriented to person, place, and time. Sensory: Sensation is intact. Motor: Motor function is intact. Coordination: Coordination is intact. Gait: Gait is intact. Comments: Ambulatory using cane Psychiatric: Attention and Perception: Attention normal. Mood and Affect: Mood normal. Speech: Speech normal. Behavior: Behavior normal. Behavior is cooperative. Thought Content: Thought content normal. Judgment: Judgment normal. Assessment & Plan Acute exacerbation of chronic obstructive pulmonary disease (HCC) Orders: predniSONE (DELTASONE) 20 mg tablet; Take 2 tablets by mouth once daily for 4 days. doxycycline hyclate (VIBRAMYCIN) 100 mg capsule; Take 1 capsule by mouth two times a day for 7 days. Irritable bowel syndrome, unspecified type Orders: ondansetron orally disintegrating (ZOFRAN ODT) 4 mg disintegrating tablet; Take 1 tablet by mouth every 8 hours as needed for nausea/vomiting. ASSESSMENT/PLAN: 1. Acute exacerbation of chronic obstructive pulmonary disease (HCC) - ICD9: 491.21, ICD10: J44.1 - Continue current medications - Begin prednisone burst - PREDNISONE 20 MG TABLET - Begin antibiotics related to sputum production, estimated creatinine clearance of 28.12 mL/min per Cockcroft-equation and patient has tolerated antibiotic in May 2023; however, you may take antibiotic as prescribed - DOXYCYCLINE HYCLATE 100 MG CAPSULE - may use inhaler for relief of any dyspnea - please attend dialysis tomorrow - use CPAP machine at night once arrived in the mail 2. Irritable bowel syndrome, unspecified type - ICD9: 564.1, ICD10: K58.9 - anti-emetic prescription refilled for intermittent nausea associated with IBS - ONDANSETRON 4 MG DISINTEGRATING TABLET - visit nearest emergency room for worsening SOB, chest pain, dizziness and abdominal pain Allyssa Vázquez NP student TEACHING PROVIDER (Physician/PA/CUSTOMS ENTRY CLERK) NOTE OF PERSONAL INVOLVEMENT IN CARE: I have personally seen and examined the patient and performed the medical decision-making components. I have reviewed the Advanced Practice Registered Nurse (CUSTOMS ENTRY CLERK) Student's documentation and verified the findings in the note as written. Any additions or changes are noted in bold/italics. Signature: Hever Cheema Date: 08/10/2024 Time: 2:48 PM documented in this encounter[facility] Telephone encounter Note * Telephone Encounter - James Mc - 08/04/2024 2:04 PM EDT No Show Documentation M Arnold Gonzalez no showed for an appointment on 08/04/24 with Efra Galarza APRN.NOY at 1:00. She was scheduled for new patient appt. I called, no answer and no vm set up M stated the reason that she missed her appointment was because n/a. Resources discussed/offered to patient: none, no asnwer No show determined to be fault of patient: N/A This is the patients first no show in the last 12 months. Patient was rescheduled for n/a. Letter mailed : Yes Is this the Third or Fourth No Show? No James Mc August 04, 2024 2:04 PM [facility]06-[facility] Miscellaneous Notes* Telephone Encounter - James Sutherland - 08/04/2024 2:04 PM EDT No Show Documentation M Arnold Gonzalez no showed for an appointment on 08/04/24 with Efra Galarza APRN.CNP at 1:00. She was scheduled for new patient appt. I called, no answer and no vm set up M stated the reason that she missed her appointment was because n/a. Resources discussed/offered to patient: none, no asnwer No show determined to be fault of patient: N/A This is the patients first no show in the last 12 months. Patient was rescheduled for n/a. Letter mailed : Yes Is this the Third or Fourth No Show? No James Mc August 04, 2024 2:04 PM documented in this encounterFisher[facility]06-04-2025 Telephone encounter Note * Telephone Encounter - Maria Eugenia Palencia OCCA - 08/03/2024 10:29 AM EDT Netta requested duplex and notified of Dr Jackson's response via fax. Transmission complete to [phone]. [facility] Miscellaneous Notes* Telephone Encounter - Maria Eugenia Palencia OCCA - 08/03/2024 10:29 AM EDT Netta requested duplex and notified of Dr Jackson's response via fax. Transmission complete to [phone]. * Telephone Encounter - Jenni Castro RN - 07/28/2024 11:59 AM EDT Patient has US 07/27/24, plan is to call with results Please review and advise. SHONDA 02/09/24 HISTORY OF PRESENT ILLNESS: Ms. Gonzalez is a 58 year old female who presents today for a vascular surgery follow-up visit for her av fistula. States they are using her fistula at dialysis. States it is painful. IMPRESSION: Ms. Gonzalez is a 58 year old female with ESRD, AV graft pain . PLAN and RECOMMENDATIONS: Will get fistula ultrasound and call with results documented in this encounterFisher[facility]06-03-2025 Telephone encounter Note * Telephone Encounter - Kelly Mcmahan LPN - 08/02/2024 9:47 AM EDT Called the pharmacy and they report pt picked this rx up 07/26/24 with no copay. [facility] Miscellaneous Notes* Telephone Encounter - Kelly Mcmahan LPN - 08/02/2024 9:47 AM EDT Called the pharmacy and they report pt picked this rx up 07/26/24 with no copay. * Telephone Encounter - Kelly Mcmahan LPN - 08/02/2024 8:35 AM EDT Trulicity was filed by Honey Frazier. We have no pharmacy benefit on file for pt. Can call the pharmacy to see if there are issues with this. If PA is needed will see if Endo is doing it. Would need to do on covermymeds. * Telephone Encounter - Ignacio Cheatham MD - 08/01/2024 4:44 PM EDT The alternatives are insulin which is not in any way related to trulicity. She has been treated effectively with a glp-1 and switching would be detrimental * Telephone Encounter - Chloe Carpenter LPN - 08/01/2024 3:25 PM EDT [facility] sends fax that Trulicity requires a prior authorization. See paper with alternatives. Patient did see endo but looks like was referred back to PCP? documented in this encounterFisher[facility]06-03-2025 Telephone encounter Note * Telephone Encounter - Kelly Mcmahan LPN - 08/02/2024 8:35 AM EDT Trulicity was filed by Honey Frazier. We have no pharmacy benefit on file for pt. Can call the pharmacy to see if there are issues with this. If PA is needed will see if Endo is doing it. Would need to do on covermymeds. [facility] Telephone encounter Note* Telephone Encounter - Ignacio Cheatham MD - 08/01/2024 4:44 PM EDT The alternatives are insulin which is not in any way related to trulicity. She has been treated effectively with a glp-1 and switching would be detrimental [facility] Telephone encounter Note* Telephone Encounter - Chloe Carpenter LPN - 08/01/2024 3:25 PM EDT [facility] sends fax that Trulicity requires a prior authorization. See paper with alternatives. Patient did see endo but looks like was referred back to PCP? [facility] Telephone encounter Note* Telephone Encounter - Diana Brand RN - 08/01/2024 9:00 AM EDT Eriberto with [facility] calls to let provider know that they are out of network for C- pap orders that were received. Call placed to patient and notified. She requests orders just be sent to [facility] as she knows they are in Network. Faxed per request to [facility] at [phone]. Diana Brand RN [facility]06-[facility] Miscellaneous Notes* Telephone Encounter - Diana Brand RN - 08/01/2024 9:00 AM EDT Eriberto with [facility] calls to let provider know that they are out of network for C- pap orders that were received. Call placed to patient and notified. She requests orders just be sent to [facility] as she knows they are in Network. Faxed per request to [facility] at [phone]. Diana Brand RN * Telephone Encounter - Nataly Burns LPN - 08/01/2024 8:39 AM EDT Faxed CPAP new device order to [facility] [place]. Nataly Burns LPN * Telephone Encounter - Alondra Chung APRN.CNP - 07/29/2024 4:33 PM EDT Order printed for PAP for [facility] Alondra Chung APRN.BENEFITS ADMINISTRATOR * Telephone Encounter - Nataly Burns LPN - 07/29/2024 3:53 PM EDT Patient notified of results, verbalizes understanding of instructions. She would like to change DME to [facility]. Nataly Burns LPN * Telephone Encounter - Alondra Chung APRN.CNP - 07/29/2024 3:12 PM EDT No, the CT chest results don't change my CPAP order. Does she need us to use a DME other than [facility]? Alondra Chung APRN.NOY * Telephone Encounter - Arnold Bocanegra LPN - 07/29/2024 2:19 PM EDT Patient calling asking that Alondra can see her CT Chest results that Tresa Marcum CUSTOMS BROKER had her getdone. Patient said she is not going to set up an appt with Pulmonary right now. She has dialysis and the nurses there check her lungs 3 times weekly, and she will have issues getting appt with all ofher dialysis days. I had went over notes from Tresa Marcum again with her and told CUSTOMS BROKER wants her to see Pulmonary, she still did not want to schedule an appt. Patient said she is having problems getting her CPAP and may have to change DME providers. She wanted to know if the results of the CT would change any of her settings on her PAP device? Please advise documented in this encounterFisher[facility]06-02-2025 Telephone encounter Note * Telephone Encounter - Nataly Burns LPN - 08/01/2024 8:39 AM EDT Faxed CPAP new device order to [facility]. Nataly Burns LPN [facility]2025 NoteHNO ID: [id number] Author: NATALY BURNS LPN Service: ? Author Type: LICENSED NURSE Type: Progress Notes Filed: 07/29/2024 16:41 Note Text: [facility] Tele[facility] Note* Telephone Encounter - Alondra Chung APRN.CNP - 07/29/2024 4:33 PM EDT Order printed for PAP for [facility] Alondra Chung APRN.CNP [facility]2025 Telephone encounter Note* Telephone Encounter - Nataly Burns LPN - 07/29/2024 3:53 PM EDT Patient notified of results, verbalizes understanding of instructions. [facility] Nataly Burns LPN [facility]2025 Telephone encounter Note* Telephone Encounter - Alondra Chung APRN.CNP - 07/29/2024 3:12 PM EDT No, the CT chest results don't change my CPAP order. Does she need us to use a DME other than [facility]? Alondra Chung APRN.NOY [facility]2025 Telephone encounter Note* Telephone Encounter - Arnold Bocanegra LPN - 07/29/2024 2:19 PM EDT Patient calling asking that Alondra can see her CT Chest results that Tresa Marcum NP had her getdone. Patient said she is not going to set up an appt with Pulmonary right now. She has dialysis and the nurses there check her lungs 3 times weekly, and she will have issues getting appt with all ofher dialysis days. I had went over notes from Tresa Marcum again with her and told CUSTOMS BROKER wants her to see Pulmonary, she still did not want to schedule an appt. Patient said she is having problems getting her CPAP and may have to change DME providers. She wanted to know if the results of the CT would change any of her settings on her PAP device? Please advise [facility]20[facility] Telephone encounter Note* Telephone Encounter - Tresa Marcum APRN.CNP - 07/29/2024 1:52 PM EDT Pulm referral entered. Please help schedule. Tresa Marcum APRN.CNP [facility]2025 Miscellaneous Notes* Telephone Encounter - Tresa Marcum APRN.CNP - 07/29/2024 1:52 PM EDT Pulm referral entered. Please help schedule. Tresa Marcum APRN.CNP * Telephone Encounter - Omkar Cornejo LPN - 07/29/2024 1:42 PM EDT TC to pt, phone call was very limited d/t static on the line. Pt notified of results/provider response. Pt is agreeable to Pulm referral. * Telephone Encounter - Tresa Marcum APRN.CNP - 07/29/2024 12:39 PM EDT Can please let Arnold know that I received her CT results. Some of the areas went away, some of the nodules stayed the same, and some new ones developed. Theyare recommending repeat imaging in 6-12 months for continued surveillance. I went ahead and put theorder in, so she can get that scheduled when she is ready. How is her breathing? If she has problems with SOB, I would also suggest that we have her follow-upwith pulmonology. On the CT, there were some changes that looked consistent with restrictive lung disease. (Problems with the elasticity of the lung tissue that doesn't allow full expansion). Let me know if she would like to proceed with pulmonology referral. documented in this [facility]2025 Telephone encounter Note * Telephone Encounter - Omkar Cornejo LPN - 07/29/2024 1:42 PM EDT TC to pt, phone call was very limited d/t static on the line. Pt notified of results/provider response. Pt is agreeable to Pulm referral. [facility]2025 Telephone encounter Note* Telephone Encounter - Tresa Marcum APRN.CNP - 07/29/2024 12:39 PM EDT Can please let Arnold know that I received her CT results. Some of the areas went away, some of the nodules stayed the same, and some new ones developed. Theyare recommending repeat imaging in 6-12 months for continued surveillance. I went ahead and put theorder in, so she can get that scheduled when she is ready. How is her breathing? If she has problems with SOB, I would also suggest that we have her follow-upwith pulmonology. On the CT, there were some changes that looked consistent with restrictive lung disease. (Problems with the elasticity of the lung tissue that doesn't allow full expansion). Let me know if she would like to proceed with pulmonology referral. [facility] Telephone encounter Note* Telephone Encounter - Jenni Castro RN - 07/28/2024 11:59 AM EDT Patient has US 07/27/24, plan is to call with results Please review and advise. SHONDA 02/09/24 HISTORY OF PRESENT ILLNESS: Ms. Gonzalez is a 58 year old female who presents today for a vascular surgery follow-up visit for her av fistula. States they are using her fistula at dialysis. States it is painful. IMPRESSION: Ms. Gonzalez is a 58 year old female with ESRD, AV graft pain . PLAN and RECOMMENDATIONS: Will get fistula ultrasound and call with results [facility] History of Present illness Narrative* Felix Edmondson RT(R) - 07/27/2024 2:20 PM EDT Radiology Service Progress Note PATIENT NAME: Margareth Gonzalez DATE OF SERVICE: July 27, 2024 TIME: 3:46 PM PATIENT IDENTITY VERIFICATION COMPLETED USING TWO (2) IDENTIFIERS: Name and Date of confirmedby patient verbally. FALL SCREENING: Has the patient had 2 falls in the last year or 1 fall with injury or currently using an Ambulatory Assistive Device (Walker, Cane, Wheelchair, Crutches, etc.)? No PATIENT GENDER DATA: Assigned female at . status: : No status:NO. PATIENT RELEVANT IMPLANT DATA REVIEWED: Not Applicable PATIENT PRESENTS WITH AN IMPLANTABLE OR ATTACHED LIME MIXER TENDER: No RADIOLOGY DEPARTMENT: CT; Exam(s) Completed: Chest PERIPHERAL IV DATA: Not applicable SIGNED BY: RT Howie(May) July 27, 2024 3:46 PM documented in this encounterFisher-[facility]05-28-2025 NoteHNO ID: [id number] Author: FELIX EDMONDSON RT(R) Service: ? Author Type: Negative Turner Type: Progress Notes Filed: 07/27/2024 15:46 Note Text: Radiology Service Progress Note PATIENT NAME: Margareth Gonzalez DATE OF SERVICE: July 27, 2024 TIME: 3:46 PM PATIENT IDENTITY VERIFICATION COMPLETED USING TWO (2) IDENTIFIERS: Name and Date of confirmed by patient verbally. FALL SCREENING: Has the patient had 2 falls in the last year or 1 fall with injury or currently using an Ambulatory Assistive Device (Walker, Cane, Wheelchair, Crutches, etc.)? No PATIENT GENDER DATA: Assigned female at . status: : No status: NO. PATIENT RELEVANT IMPLANT DATA REVIEWED: Not Applicable PATIENT PRESENTS WITH AN IMPLANTABLE OR ATTACHED LIME MIXER TENDER: No RADIOLOGY DEPARTMENT: CT; Exam(s) Completed: Chest PERIPHERAL IV DATA: Not applicable SIGNED BY: RT Howie(R) July 27, 2024 3:46 [facility]05-12-2025 NoteHNO ID: [id number] Author: GEGE MCCRARY OD Service: ? Author Type: MANAGER WELDING Type: Progress Notes Filed: 07/11/2024 16:27 Note Text: 1. 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, with long-term current use of insulin (HCC) Both eyes s/p Pars plana vitrectomy / Panretinal laser photocoagulation Posterior chamber intraocular lens Both eyes. Recommended tight BS control Educated patient to continue care with primary care doctor and/or nitroglycerin separator operator to maintain optimum levels as they are important to avoid ocular complications. Encouraged patient to call the office immediately with any changes to vision or visual concerns. Advised to not wait until the next scheduled exam. 2. Presbyopia 3. Pseudophakia of both eyes Continue with OTC readers Urged patient to follow-up in 6 months for dilated exam or MATTEO with any changes in vision Gege Mccrary, PB July 11, 2024 4:46 [facility]05-12-2025 History of Present illness Narrative* Gege Mccrary, OD - 07/11/2024 4:26 PM EDT 1. 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, with long-term current use of insulin (HCC) Both eyes s/p Pars plana vitrectomy / Panretinal laser photocoagulation Posterior chamber intraocular lens Both eyes. Recommended tight BS control Educated patient to continue care with primary care doctor and/or nitroglycerin separator operator to maintain optimum levels as they are important to avoid ocular complications. Encouraged patient to call the officeimmediately with any changes to vision or visual concerns. Advised to not wait until the next scheduled exam. 2. Presbyopia 3. Pseudophakia of both eyes Continue with OTC readers Urged patient to follow-up in 6 months for dilated exam or MATTEO with any changes in vision Gege Mccrary, OD July 11, 2024 4:46 PM documented in this encounterFisher[facility]05-07-2025 Telephone encounter Note * Telephone Encounter - Audra Sparks MA - 07/06/2024 2:55 PM EDT Cover My Meds prior auth soriano [id number] required. Audra Sparks MA [facility]05-07-2025 Miscellaneous Notes* Telephone Encounter - Audra Sparks MA - 07/06/2024 2:55 PM EDT Cover My Meds prior auth soriano [id number] required. Audra Sparks MA documented in this encounterFisher-[facility]05-07-2025 Note* Addendum Note - Trinidad Frazier APRN.CNP - 07/06/2024 2:03 PM EDTAddended by: TRINIDAD FRAZIER on: 07/06/2024 02:03 PM Modules accepted: Orders [facility]05-07-2025 Miscellaneous Notes* Addendum Note - Trinidad Frazier APRN.CNP - 07/06/2024 2:03 PM EDTAddended by: TRINIDAD FRAZIER on: 07/06/2024 02:03 PM Modules accepted: Orders documented in this encounterFisher[facility]05-07-2025 History of Present illness Narrative* Trinidad Frazier APRN.CNP - 07/06/2024 2:00 PM EDT OFFICE VISIT PROGRESS NOTE KAR Gonzalez is a 59 year old who presents today for blood sugar review, DM med dosing review,adjust . HPI PATIENT OF DR. CLARK, ENDOCRINE Diagnosed with diabetes mellitus type 2, ~ 1989 Last endocrine OV 10/02/2021 with SHILO BERGMAN HPI 07/07/2023 Does not check BG Not using his CGM In dialysis 3 times per week Recently started on GLP1 Had no insurance until now, was not able to continue with CGM or glucometer Was restarted on GLP1 by PCP CURRENT DM MEDS TRULICITY 0.75 mg weekly SMBG Type of Monitor: Other HAD no insurance, was unable to use her CGM nor glucometer Frequency of Monitoring: times a day BG Values: Breakfast: Lunch: Dinner: Bed-time: Values over past week: Highest ; Lowest Hypoglycemia: no Diet: No specific diet regimen - progressively losing appetite Exercise: working on that -- pool therapy DM REVIEW OF SYSTEMS Last Eye Exam : next 06/2024 Last Podiatry Exam: 12/2023 Cardiorespiratory: negative, denies chest pain, pressure Claudication: no Dyslipidemia: Yes, controlled on medication High Blood Pressure: Yes, controlled on medication CURRENT LABS Recent Labs 11/03/14 1030 11/03/14 1053 11/29/14 0852 02/05/15 0829 03/26/17 1116 04/16/17 1241 12/28/17 1129 07/07/18 1157 04/21/20 0859 07/20/20 1245 10/27/20 1042 12/26/20 0808 12/18/21 0844 12/18/21 0845 03/22/22 1029 05/24/22 1050 06/30/22 1613 07/03/22 0914 08/11/22 0810 08/11/22 1002 08/21/22 1049 08/26/22 0934 08/26/22 0941 11/10/22 1604 01/21/23 0000 06/10/23 2101 06/11/23 0325 06/16/23 0245 06/17/23 0514 07/28/23 1908 07/29/23 0411 08/03/23 0003 08/04/23 0448 08/05/23 0456 ALT -- -- -- < > 11 < > 18 < > 18 < > -- < > -- -- 18 < > -- < > -- -- -- -- -- 15 -- 12 -- -- -- 15 -- -- -- -- AST -- -- -- < > 16 < > 18 < > 20 < > -- < > -- -- 23 < > -- < > -- -- -- -- -- 21 -- 17 -- -- -- 26 -- -- -- -- UCRR Unable to assay. No specimen received. < > 62.2 -- 43.4 -- -- -- -- -- 52.7 < > --< > -- -- 30.1 -- 55.1 -- -- 56.5 -- -- -- -- -- -- -- -- -- -- -- -- UALBR Unable to assay. No specimen received. < > 54.9* -- 219.5* -- -- -- -- -- 96.3 -- -- ---- -- -- -- -- -- -- -- -- -- -- -- -- -- -- -- -- -- -- -- UALBCR Unable to assay. No specimen received. -- -- -- 506* -- -- -- -- -- 183* -- -- -- -- -- -- -- -- -- -- -- -- -- -- -- -- -- -- -- -- -- -- -- TSH -- -- -- -- -- -- 2.170 -- -- -- -- -- -- -- -- -- -- -- -- -- -- -- -- -- -- -- -- -- -- -- ---- -- -- TPROT -- -- -- < > 6.2* < > 6.5 < > 6.4 < > -- < > -- -- 6.0* < > -- < > -- -- -- -- -- 5.8* -- 6.4 -- -- -- 6.3 -- -- -- -- ALB 4.0 -- 4.0 < > 3.7* < > 3.8* < > 4.0 < > -- < > 3.9 < > 3.3* < > -- < > -- 3.8* < > -- < > 3.4* -- 3.8* -- -- -- 3.4* -- -- -- -- CA 9.6 -- 10.5 < > 9.2 < > 9.1 < > 9.0 < > -- < > 8.8 < > -- < > -- < > -- 8.0* < > -- < > 8.7 -- 9.3 < > 8.3* < > 8.9 < > 8.7 8.7 8.6 TBILI -- -- -- < > 0.3 < > 0.3 < > 0.4 < > -- < > -- -- 0.3 < >-- < > -- -- -- -- -- 0.3 -- 0.4 -- -- -- 0.4 -- -- -- -- ALKPHOS -- -- -- < > 57 < > 69 < > 84 < > -- < > -- -- 90 < > -- < > -- -- -- -- -- 105 -- 152* -- -- -- 138* -- -- -- -- GLUC 181* -- 117* < > 193* < > 97 < > 171* < > -- < > 110* < > -- < > -- < > -- 237* < > -- < > 122* -- 178* < > 155* < > 72* < > 106* 77 103* BUN 12 -- 8 < > 19 < > 30* < > 30* < > -- < > 28* < > -- < > -- < > -- 36* < > -- < > 29* -- 57* < > 50* < > 26* < > 23* 32* 17 CREAT 1.19 -- 1.35 < > 1.32* < > 1.93* < > 2.32* < > -- < > 3.47* < > -- < > -- < > -- 5.10* < > -- < > 3.83* -- 6.08* < > 5.50* <> 3.78* < > 3.81* 4.36* 2.89* NA 139 -- 138 < > 138 < > 139 < > 140 < > -- < > 139 < > -- < > -- < > -- 137 < > -- < > 135* -- 133* < > 134* < > 137 < > 131* 137 136 K 4.9 -- 5.0 < > 4.9 < > 4.8 < > 4.8 < > -- < > 4.8 < > -- <> -- < > -- 4.6 < > -- < > 4.6 -- 5.8* < > 4.7 < > 5.0 < > 4.6 5.0 4.3 CHLOR 102 -- 104 < > 102 < > 104 < > 106* < > -- < > 105 < > --< > -- < > -- 100 < > -- < > 97 -- 97 < > 97 < > 95* < > 97 104 99 CO2 22* -- 16* < > 23 < > 24 < > 26 < > -- < > 23 < > -- < > -- < > -- 23 < > -- < > 23 -- 22 < > 25 < > 34* < > 28 24 28 ANION 15 -- 18* < > 13 < > 11 < > 8* < > -- < > 11 < > -- < > -- < > -- 14 < > -- < > 15 -- 14 < > 12 < > 8* < > 6* 9 9 EGFROTH 48 -- 42 < > 42 < > 27 < > 22 < > -- < > 15* < > -- < > -- < > -- 9* < > -- < > 13* -- 8* < > 8* < > 13* < > 13* 11* 18* HBA1C -- -- -- < > 8.5* < > 7.3* < > 10.9* < > 7.7* < > -- -- 7.3* ---- -- -- 8.4* -- -- -- -- 5.8 -- -- -- -- -- -- -- -- -- B12 -- -- -- < > -- < > 452 < > 565 -- -- -- 573 -- -- -- -- -- -- -- -- -- -- ---- -- -- 865 -- -- -- -- -- -- < > = values in this interval not displayed. Recent Labs 04/21/20 0859 07/20/20 1245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 medications for this visit. FAMILY HISTORY Problem Relation Age of Onset Thyroid Father Blindness Mother Diabetic retinopathy Diabetes Mother from renal disease Coronary Artery Disease Mother other (Diabetic Retinaopathy) Mother Cancer Mother uterine Stroke Mother Kidney Disease Mother Thyroid Sister skin cancer Kidney Disease Sister Diabetes Sister Diabetes Sister Coronary Artery Disease Brother Diabetes Brother Coronary Artery Disease Brother Colon Cancer Other none Breast Cancer Other none Social History Tobacco Use Smoking status: Former Current packs/day: 0.00 Average packs/day: 2.0 packs/day for 6.0 years (12.0 ttl pk-yrs) Types: Cigarettes Start date: 08/01/1983 Quit date: 07/31/1989 Years since quittin.8 Smokeless tobacco: Never Tobacco comments: Quit at age 24 Vaping Use Vaping status: Never Used Substance Use Topics Alcohol use: Not Currently Comment: rare Drug use: No Comment: Tried marijuana once - never used it again. REVIEW OF SYSTEMS Constitutional: (+) sleep disturbance Cardiovascular: (-) chest pain, (-) palpitations Respiratory: (-) shortness of breath Gastrointestinal: (-) abdominal pain, (-) nausea Musculoskeletal: (+) generalized pain Skin: (+) itching Psychiatric: (-) mood changes EXAM: BP 184/92 Pulse 95 Resp 16 LMP 09/20/2014 SpO2 98% PHYSICAL EXAM: General Appearance: Well appearing, alert, in no acute distress, well-hydrated, well nourished. Skin: Skin color, texture, turgor normal, no suspicious rashes or lesions. Head: Normocephalic, no masses, lesions, tenderness or abnormalities. Eyes: Anicteric sclera. Extraocular movements are intact. Neck: Supple, no adenopathy; thyroid symmetric, normal size, no bruits. Lungs: Lungs clear to auscultation. No wheezing, rhonchi, rales.. Heart: RRR without murmur, gallop, or rubs. No ectopy. Extremities: No deformities, edema, skin discoloration, clubbing or cyanosis. Good capillary refill. + bruit/thrill left FA fistula. Neurologic: Gait normal. ASSESSMENT/PLAN 1. Type 2 diabetes, controlled, with neuropathy (HCC) (E11.40) - Blood glucose levels ranging from 120-180 mg/dL; last HbA1c was 5.4%. - Resumed Trulicity at a lower dose for 4 weeks before returning to 1.5 mg. - Hold glipizide temporarily to prevent hypoglycemia; will reassess need based on blood glucose levels. - Ordered lab work including HbA1c. - Referral to endocrinology for further management. 2. Anxiety (F41.9) - Managed with duloxetine; patient reports effective control. 3. Primary hypertension (I10) - Blood pressure currently managed with nifedipine 90 mg daily. - Blood pressure fluctuations noted during dialysis sessions. - Regular follow-ups with nephrology; last medication adjustment 2 weeks ago. 4. Mixed hyperlipidemia (E78.2) - Continue atorvastatin therapy; no reported issues. - Ordered lipid panel. 5. Gastroesophageal reflux disease, unspecified whether esophagitis present (K21.9) - Continue omeprazole daily; patient reports stable condition. 6. CASSIE (obstructive sleep apnea) (G47.33) 7. Sleep apnea, unspecified type (G47.30) - Referral to sleep medicine for further evaluation and management. 8. Chronic insomnia (F51.04) - Referral to sleep medicine for comprehensive evaluation. 9. Lung nodules (R91.8) - Previous CT chest in April showed lung nodules. - due for surveillance. 10. Other chronic pain (G89.29) 11. Fibromyalgia (M79.7) - Chronic pain and fibromyalgia managed with duloxetine and amitriptyline. - Referral to pain management for further evaluation and treatment. - Requesting referral to hydrotherapy. 12. Weakness of both lower extremities (R29.898) - Referral for hydrotherapy at [facility] to improve leg strength. 13. End stage renal disease on dialysis (HCC) (N18.6) - Undergoing dialysis three times a week. - Regular follow-ups with nephrology. - Ordered lab work including CBC, CMP, and magnesium. Discussed treatment plan and patient voices understanding. Patient's questions answered appropriately. Medications and potential side effects were discussed and patient voices understanding. Return to the office as scheduled or as needed for worsening/no improvement. Tresa Marcum APRN.NOY The patient consented to the use of [employer] software for draft documentation of the visit consistent with [facility] s Notice of Privacy Practices. documented in this [facility]04-[facility] Instructions* Patient Instructions* Tresa Marcum APRN.CNP - 06/01/2024 2:22 PM EDT - Discontinue Glipizide for now; monitor blood sugar levels. - Start Trulicity at a lower dose for 4 doses, then switch to 1.5 mg as prescribed; medication sentto [facility] pharmacy. - Complete lab work (CBC, CMP, Magnesium, A1c, Cholesterol Panel) at dialysis center. - Schedule appointments with Endocrinology and Sleep Medicine. - Schedule hydrotherapy at [facility]; order will be faxed to [facility]. - Schedule follow-up appointments with Pain Management and Neurology. - schedule repeat chest CT. - Next follow-up appointment in [address] Cheatham. documented in this encounter[facility]03-[facility]25 Telephone encounter Note * Telephone Encounter - Chloe Carpenter LPN - 05/11/2024 11:17 AM EDT Faxing as requested. Attempted to contact patient but voicemail is not set up. [facility]03-12-[facility]25 Miscellaneous Notes* Telephone Encounter - Chloe Carpenter LPN - 05/11/2024 11:17 AM EDT Faxing as requested. Attempted to contact patient but voicemail is not set up. * Telephone Encounter - Ignacio Cheatham MD - 05/10/2024 11:48 AM EDT ok * Telephone Encounter - Fabiola Jesus RN - 05/10/2024 11:31 AM EDT Patient calling and is asking if provider can write orders for a home health aide. Patient states if provider can write this order she would like to have it faxed to [facility] at [phone]. Fabiola Jesus RN documented in this encounterFisher[facility]03-[facility]-2025 Telephone encounter Note * Telephone Encounter - Ignacio Cheatham MD - 05/10/2024 11:48 AM EDT ok [facility]03-11-2025 Telephone encounter Note* Telephone Encounter - Fabiola Jesus RN - 05/10/2024 11:31 AM EDT Patient calling and is asking if provider can write orders for a home health aide. Patient states if provider can write this order she would like to have it faxed to [facility] at [phone]. Fabiola Jesus RN [facility]02-18-2025 NotePatient Outreach (FAMPWS) Margareth GONZALEZ ([id number]) 1965 F [place] Date Time Provider Department 04/19/24 IGNACIO CHEATHAM During your visit today, we recorded the following information about you: Allergies As of Date: 04/19/2024 Noted Allergy Reaction VICODIN (HYDROCODONE-ACETAMINOPHE*09/23/2007 11 - Vomiting BALSAM 115 09/23/2007 BALSAM JUAN 09/10/2022 16 - Unknown BARIUM SULFATE 05/01/2023 16 - Unknown BENADRYL ALLERGY DECONGESTANT 05/01/2023 9 - Itching BENADRYL (DIPHENHYDRAMINE HCL) 09/23/2007 2 - Rash 9 - Itching CODEINE 09/23/2007 11 - Vomiting 14 - Other: See Comments LISINOPRIL 05/26/2008 15 - Contraindication-[facility]* Comments: Acute renal failure MOLD 09/23/2007 NSAIDS (NON-STEROIDAL ANTI-INFLAM*09/13/2012 14 - Other: See Comments Comments: Unable to take nsaids after having gastric bypass. PENICILLINS 09/23/2007 10 - Anaphylaxis SEASONAL ALLERGIES 12/14/2008 14 - Other: See Comments Comments: Nose runs, sneezing... TETRACYCLINE 09/23/2007 2 - Rash VANILLA EXTRACT 09/23/2007 VANILLA EXTRACT FLAVOR 09/10/2022 16 - Unknown Date Reviewed: 04/15/2024 Reviewed by: Sha Ray APRN.BENEFITS ADMINISTRATOR - Fully Assessed Visit Diagnosis:Encounter for screening mammogram for breast cancer [Z12.31] Order(s):[facility] SCREENING [facility] VERONICA [[id number]] Order #: [id number] FUTURE Prescriptions as of 05/20/2024 - hydrOXYzine pamoate (VISTARIL) 25 mg capsule Take 1 capsule by mouth at bedtime as needed. - ondansetron orally disintegrating (ZOFRAN ODT) 4 mg disintegrating tablet Take 1 tablet by mouth every 8 hours as needed for nausea/vomiting. - hydrOXYzine HCl (ATARAX) 50 mg tablet Take 1 tablet by mouth every 6 hours as needed for itching/rash. - NIFEdipine ER (PROCARDIA XL) 30 mg 24 hr tablet Take 1 tablet by mouth every afternoon. - sevelamer carbonate (RENVELA) 800 mg tablet Take 1 tablet by mouth three times a day with meals. Ordered by dialysis - glipiZIDE (GLUCOTROL XL) 5 mg 24 hr tablet Take 10 mg by mouth. Per endocrinology - DULoxetine (CYMBALTA) 30 mg capsule Take 1 capsule by mouth once daily. - amitriptyline (ELAVIL) 100 mg tablet Take 1 tablet by mouth daily at bedtime. - atorvastatin (LIPITOR) 40 mg tablet Take 1 tablet by mouth daily at bedtime. For cholesterol. - omeprazole (PRILOSEC) 20 mg capsule Take 1 capsule by mouth once daily. - sertraline (ZOLOFT) 50 mg tablet Take 1 tablet by mouth once daily. - TRULICITY 1.5 mg/0.5 mL pen injector INJECT 1.5 MG UNDER THE SKIN ONCE A WEEK - acetaminophen (TYLENOL) 500 mg tablet Take 1,000 mg by mouth every 12 hours. - calcitriol (ROCALTROL) 0.25 mcg capsule Take 0.25 mcg by mouth once daily. Per diaylsis - melatonin 5 mg tablet Take 5 mg by mouth. As needed. - flash glucose scanning reader (FREESTYLE FESTUS 2 READER) Use to check glucose 3 times daily and continuously. 1 per year. - flash glucose sensor (FREESTYLE FESTUS 2 SENSOR) kit Use to check glucose 3 times daily and continuously. Change every 14 days. 6 per 90 day supply. - cholecalciferol (VITAMIN D3) 5,000 unit tab Take 5,000 Units by mouth twice daily. - aspirin, enteric coated (ADULT LOW DOSE ASPIRIN) 81 mg EC tablet Take 1 tablet by mouth once daily. - Gnomqycc-Dk-Xvw-Fe-FA ( VITAMIN) ORAL Tab Take 1 tablet by mouth once daily. Meds Comments as of 11/28/2017: Pt states all meds were just gone over. Did not go over meds. Swathi Haddad Ma November 28, 2017 Problem List As Of Date 04/19/2024 Noted Resolved Acute gastritis [K29.00] 12/16/2007 08/04/2022 DM w/o complication type II, uncontrolled [IMO0*03/09/2008 12/07/2014 Routine gynecological examination [Z01.419] 03/09/2008 04/16/2017 Class: Chronic OBESITY NOS [E66.9] 03/09/2008 Acute anemia [D64.9] 03/09/2008 Background diabetic retinopathy (HCC) [E11.3299]03/09/2008 Asthma [J45.909] 03/09/2008 DIABETIC FOOT ULCER [L97.509] 03/09/2008 04/16/2017 CHOLELITHIASIS NOS [K80.20] 03/09/2008 Bipolar disorder, unspecified (HCC) [F31.9] 03/09/2008 Essential hypertension, benign [I10] 03/27/2008 03/16/2015 Primary hypertension [I10] Type 2 diabetes mellitus with stage 4 chronic k* Pain in limb [M79.609] 06/29/2008 02/21/2019 Dermatophytosis of nail [B35.1] 06/29/2008 04/20/2020 Corns and callosities [L84] 06/29/2008 04/16/2017 Unspecified Iron Deficiency Anemia [D50.9] 09/21/2008 EDEMA [R60.9] 09/21/2008 Ulcer of heel and midfoot (HCC) [L97.409] 02/08/2009 04/16/2017 Chronic pain [G89.29] 09/24/2009 02/21/2019 Fibromyalgia [M79.7] 09/24/2009 Neuropathy [G62.9] 09/24/2009 Elbow joint pain [M25.529] 09/24/2009 04/20/2020 Generalized pain [R52] 10/01/2009 02/21/2019 ACL tear [S83.519A] 11/26/2009 04/20/2020 Knee pain [M25.569] 11/26/2009 04/20/2020 Tendonitis [M77.9] 02/26/2010 04/20/2020 Vitamin D deficiency [E55.9] 04/19/2010 Microalbuminuria [R80.9] 04/22 (more content not included)...[facility]02-14-2025 NoteHNO ID: [id number] Author: SHA RAY APRN.BENEFITS ADMINISTRATOR Service: ? Author Type: Nurse Practitioner Type: Progress Notes Filed: 04/15/2024 12:57 Note Text: Subjective HPI Nontoxic-appearing 58-year-old female presents urgent care chief plaint dental pain. Duration of symptoms 3 days. Associated symptoms dental pain dental decay. Presents today for evaluation. OTC medications none. History of dental infections and similar. Denies any fevers vomiting abdominal pain. No trismus difficulty swallowing his secretion decreased range of motion of neck or elevation of floor of mouth. Past medical history prescription medications allergies reviewed. .Patient presents with: Dental Problem: R lower tooth pain x 3 days increasing, swelling PAST MEDICAL HISTORY Diagnosis Date Acute gastritis without mention of hemorrhage Allergic rhinitis Anaphylaxis Anemia Back pain Benign essential tremor Bipolar I disorder, most recent episode (or current) unspecified sectrum Bone mass Candidiasis, intertrigo Chronic kidney disease Contraceptive management Depression Diabetes ([facility]) Diarrhea DVT, lower extremity ([facility]) 08/2014 Right leg (6) Esophagitis ESRD (end stage renal disease) ([facility]) 07/03/2022 Facial fracture due to fall ([facility]) ([facility]) Fatigue Fibromyalgia Fracture Fracture of shaft of fibula GERD (gastroesophageal reflux disease) HLD (hyperlipidemia) on tricor Hyperlipidemia Hypertension Hypomagnesemia Hypopotassemia IBS (irritable bowel syndrome) Insomnia Intertrigo Knee pain Morbid obesity ([facility]) 03/11/2011 Myalgia Nausea Neck pain Neuropathy Nocturnal leg cramps Non-cardiac chest pain Obesity CASSIE (obstructive sleep apnea) 07/08/2011 Other polyp of sinus Other specified anemias Personal history of unspecified urinary disorder PMH - PAST MEDICAL HISTORY OF left knee surgery x3 Pulmonary nodules Pyelonephritis, acute Restless leg Ruptured appendicitis S/P gastric bypass Snoring Type 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, not stated as uncontrolled(250.50) on oral medications and Lanuts Unspecified asthma(493.90) on inhalers Unspecified essential hypertension on medical management Upper abdominal pain Urinary frequency Vitamin D deficiency PAST SURGICAL HISTORY Procedure Laterality Date CHOLECYSTECTOMY 04/02/2011 COLONOSCOPY W/BIOPSY SINGLE/MULTIPLE 12/16/2007 DILATION AND CURETTAGE DXAND/THER NONOBSTETRIC Dilation AND curettage EGD TRANSORAL BIOPSY SINGLE/MULTIPLE 12/16/2007 ESOPHAGOGASTRODUODENOSCOPY TRANSORAL DIAGNOSTIC age 14 EGD LAPAROSCOPIC APPENDECTOMY 05/16/2011 MIDLINE INSERTION/CONSULT 07/29/2012 Lap Paul-en-Y gastric bypass PAST SURGICAL HISTORY OF age 14 left knee surgery, for dislocation PAST SURGICAL HISTORY OF age 5 warts removed PAST SURGICAL HISTORY OF 03/02/2007 laser surgery to both eyes for diabetic retinopathy PAST SURGICAL HISTORY OF 04/26/2008 Bilateral eye surgery- vitrectomy PAST SURGICAL HISTORY OF 06/30/2008 Left eye air fluid exchange PAST SURGICAL HISTORY OF 04/09, 07/07 retinal vitrectomies PAST SURGICAL HISTORY OF Left 07/24/2022 Left forearm AVG with [address] Valenzuela STRESS TEST 200p, 2014 Normal results TUBAL LIGATION HX ablation at the same time ALLERGIES Vicodin [Hydrocodone-Acetaminophen], Balsam 115, Balsam [place], Barium Sulfate, Benadryl Allergy Decongestant, Benadryl [Diphenhydramine Hcl], Codeine, Lisinopril, Mold, Nsaids (Non-Steroidal Anti-Inflammatory Drug), Penicillins, Seasonal Allergies, Tetracycline, Vanilla Extract, and Vanilla Extract Flavor MEDICATIONS hydrOXYzine pamoate (VISTARIL) 25 mg capsule Take 1 capsule by mouth at bedtime as needed. ondansetron orally disintegrating (ZOFRAN ODT) 4 mg disintegrating tablet Take 1 tablet by mouth every 8 hours as needed for nausea/vomiting. hydrOXYzine HCl (ATARAX) 50 mg tablet Take 1 tablet by mouth every 6 hours as needed for itching/rash. NIFEdipine ER (PROCARDIA XL) 30 mg 24 hr tablet Take 1 tablet by mouth every afternoon. sevelamer carbonate (RENVELA) 800 mg tablet Take 1 tablet by mouth three times a day with meals. Ordered by dialysis glipiZIDE (GLUCOTROL XL) 5 mg 24 hr tablet Take 10 mg by mouth. Per endocrinology DULoxetine (CYMBALTA) 30 mg capsule Take 1 capsule by mouth once daily. amitriptyline (ELAVIL) 100 mg tablet Take 1 tablet by mouth daily at bedtime. atorvastatin (LIPITOR) 40 mg tablet Take 1 tablet by mouth daily at bedtime. For cholesterol. omeprazole (PRILOSEC) 20 mg capsule Take 1 capsule by mouth once daily. TRULICITY 1.5 mg/0.5 mL pen injector INJECT 1.5 MG UNDER THE SKIN ONCE A WEEK acetaminophen (TYLENOL) 500 mg tablet Take 1,000 mg by mouth every 12 hours. calcitriol (ROCALTROL) 0.25 mcg capsule Take 0.25 mcg by mouth once daily. Per diaylsis melatonin 5 mg tablet Take 5 mg by mouth. As needed. flash (more content not included)...[facility]02-14-2025 History of Present illness Narrative* Sha Ray APRN.BENEFITS ADMINISTRATOR - 04/15/2024 12:38 PM EST Subjective HPI Nontoxic-appearing 58-year-old female presents urgent care chief plaint dental pain. Duration of symptoms 3 days. Associated symptoms dental pain dental decay. Presents today for evaluation. OTC medications none. History of dental infections and similar. Denies any fevers vomiting abdominal pain. No trismus difficulty swallowing his secretion decreased range of motion of neck or elevation of floor of mouth. Past medical history prescription medications allergies reviewed. .Patient presents with: Dental Problem: R lower tooth pain x 3 days increasing, swelling PAST MEDICAL HISTORY Diagnosis Date Acute gastritis without mention of hemorrhage Allergic rhinitis Anaphylaxis Anemia Back pain Benign essential tremor Bipolar I disorder, most recent episode (or current) unspecified sectrum Bone mass Candidiasis, intertrigo Chronic kidney disease Contraceptive management Depression Diabetes ([facility]) Diarrhea DVT, lower extremity ([facility]) 08/2014 Right leg (6) Esophagitis ESRD (end stage renal disease) ([facility]) 07/03/2022 Facial fracture due to fall ([facility]) ([facility]) Fatigue Fibromyalgia Fracture Fracture of shaft of fibula GERD (gastroesophageal reflux disease) HLD (hyperlipidemia) on tricor Hyperlipidemia Hypertension Hypomagnesemia Hypopotassemia IBS (irritable bowel syndrome) Insomnia Intertrigo Knee pain Morbid obesity ([facility]) 03/11/2011 Myalgia Nausea Neck pain Neuropathy Nocturnal leg cramps Non-cardiac chest pain Obesity CASSIE (obstructive sleep apnea) 07/08/2011 Other polyp of sinus Other specified anemias Personal history of unspecified urinary disorder PMH - PAST MEDICAL HISTORY OF left knee surgery x3 Pulmonary nodules Pyelonephritis, acute Restless leg Ruptured appendicitis S/P gastric bypass Snoring Type 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, not stated as uncontrolled(250.50) on oral medications and Lanuts Unspecified asthma(493.90) on inhalers Unspecified essential hypertension on medical management Upper abdominal pain Urinary frequency Vitamin D deficiency PAST SURGICAL HISTORY Procedure Laterality Date CHOLECYSTECTOMY 04/02/2011 COLONOSCOPY W/BIOPSY SINGLE/MULTIPLE 12/16/2007 DILATION & CURETTAGE DX&/THER NONOBSTETRIC Dilation & curettage EGD TRANSORAL BIOPSY SINGLE/MULTIPLE 12/16/2007 ESOPHAGOGASTRODUODENOSCOPY TRANSORAL DIAGNOSTIC age 14 EGD LAPAROSCOPIC APPENDECTOMY 05/16/2011 MIDLINE INSERTION/CONSULT 07/29/2012 Lap Paul-en-Y gastric bypass PAST SURGICAL HISTORY OF age 14 left knee surgery, for dislocation PAST SURGICAL HISTORY OF age 5 warts removed PAST SURGICAL HISTORY OF 03/02/2007 laser surgery to both eyes for diabetic retinopathy PAST SURGICAL HISTORY OF 04/26/2008 Bilateral eye surgery- vitrectomy PAST SURGICAL HISTORY OF 06/30/2008 Left eye air fluid exchange PAST SURGICAL HISTORY OF 04/09, 07/07 retinal vitrectomies PAST SURGICAL HISTORY OF Left 07/24/2022 Left forearm AVG with [address] x[address] Valenzuela STRESS TEST 200p, 2014 Normal results TUBAL LIGATION HX ablation at the same time ALLERGIES Vicodin [Hydrocodone-Acetaminophen], Balsam 115, Balsam [place], Barium Sulfate, Benadryl Allergy Decongestant, Benadryl [Diphenhydramine Hcl], Codeine, Lisinopril, Mold, Nsaids (Obz-JqxasgcbfGwdb-Ffdzxcetpvmf Drug), Penicillins, Seasonal Allergies, Tetracycline, Vanilla Extract, and Vanilla Extract Flavor MEDICATIONS hydrOXYzine pamoate (VISTARIL) 25 mg capsule Take 1 capsule by mouth at bedtime as needed. ondansetron orally disintegrating (ZOFRAN ODT) 4 mg disintegrating tablet Take 1 tablet by mouth every 8 hours as needed for nausea/vomiting. hydrOXYzine HCl (ATARAX) 50 mg tablet Take 1 tablet by mouth every 6 hours as needed for itching/rash. NIFEdipine ER (PROCARDIA XL) 30 mg 24 hr tablet Take 1 tablet by mouth every afternoon. sevelamer carbonate (RENVELA) 800 mg tablet Take 1 tablet by mouth three times a day with meals. Ordered by dialysis glipiZIDE (GLUCOTROL XL) 5 mg 24 hr tablet Take 10 mg by mouth. Per endocrinology DULoxetine (CYMBALTA) 30 mg capsule Take 1 capsule by mouth once daily. amitriptyline (ELAVIL) 100 mg tablet Take 1 tablet by mouth daily at bedtime. atorvastatin (LIPITOR) 40 mg tablet Take 1 tablet by mouth daily at bedtime. For cholesterol. omeprazole (PRILOSEC) 20 mg capsule Take 1 capsule by mouth once daily. TRULICITY 1.5 mg/0.5 mL pen injector INJECT 1.5 MG UNDER THE SKIN ONCE A WEEK acetaminophen (TYLENOL) 500 mg tablet Take 1,000 mg by mouth every 12 hours. calcitriol (ROCALTROL) 0.25 mcg capsule Take 0.25 mcg by mouth once daily. Per diaylsis melatonin 5 mg tablet Take 5 mg by mouth. As needed. flash glucose scanning reader (SimpleRe[employer]STYLE FESTUS 2 READER) Use to check glucose 3 times daily and continuously. 1 per year. flash glucose sensor (FREESTYLE FESTUS 2 SENSOR) kit Use to check glucose 3 times daily and continuously. Change every 14 days. 6 per 90 day supply. cholecalciferol (VITAMIN D3) 5,000 unit tab Take 5,000 Units by mouth twice daily. aspirin, enteric coated (ADULT LOW DOSE ASPIRIN) 81 mg EC tablet Take 1 tablet by mouth once daily.(Patient taking differently: Take 81 mg by mouth every morning.) Kxbnkjvp-Qb-Mpt-Fe-FA ( VITAMIN) ORAL Tab Take 1 tablet by mouth once daily. sertraline (ZOLOFT) 50 mg tablet Take 1 tablet by mouth once daily. FAMILY HISTORY Problem Relation Age of Onset Thyroid Father Blindness Mother Diabetic retinopathy Diabetes Mother from renal disease Coronary Artery Disease Mother other (Diabetic Retinaopathy) Mother Cancer Mother uterine Stroke Mother Kidney Disease Mother Thyroid Sister skin cancer Kidney Disease Sister Diabetes Sister Diabetes Sister Coronary Artery Disease Brother Diabetes Brother Coronary Artery Disease Brother Colon Cancer Other none Breast Cancer Other none Social History Tobacco Use Smoking status: Former Current packs/day: 0.00 Average packs/day: 2.0 packs/day for 6.0 years (12.0 ttl pk-yrs) Types: Cigarettes Start date: 08/01/1983 Quit date: 07/31/1989 Years since quittin.7 Smokeless tobacco: Never Tobacco comments: Quit at age 24 Vaping Use Vaping status: Never Used Substance Use Topics Alcohol use: Not Currently Comment: rare Drug use: No Comment: Tried marijuana once - never used it again. BP 173/80 Pulse 96 Temp 36.7 C (98 F) Resp 20 Wt 87 kg (191 lb 12.8 oz) LMP 09/20/2014 SpO2 99% BMI 29.16 kg/m Review of Systems Constitutional: Negative for chills, fever and malaise/fatigue. HENT: Negative for congestion, ear discharge, ear pain, sinus pain and sore throat. Eyes: Negative for blurred vision, pain, discharge and redness. Respiratory: Negative for cough, hemoptysis, sputum production, shortness of breath, wheezing and stridor. Cardiovascular: Negative for chest pain. Gastrointestinal: Negative for abdominal pain, diarrhea, nausea and vomiting. Musculoskeletal: Negative for myalgias. Skin: Negative for itching and rash. Neurological: Negative for dizziness and headaches. Objective Physical Exam Constitutional: General: She is not in acute distress. Appearance: She is not diaphoretic. HENT: Head: Normocephalic. Jaw: No trismus, tenderness, swelling or pain on movement. Mouth/Throat: Mouth: Mucous membranes are moist. Dentition: Abnormal dentition. Dental tenderness and dental caries present. No dental abscesses. Pharynx: Oropharynx is clear. Uvula midline. No pharyngeal swelling, oropharyngeal exudate, posterior oropharyngeal erythema or uvula swelling. Tonsils: No tonsillar exudate or tonsillar abscesses. Comments: Significant dental decay noted throughout mouth. On palpation of right lower mandibular region. Eyes: Conjunctiva/sclera: Conjunctivae normal. Pupils: Pupils are equal, round, and reactive to light. Cardiovascular: Rate and Rhythm: Normal rate and regular rhythm. Heart sounds: Normal heart sounds. Pulmonary: Effort: Pulmonary effort is normal. No tachypnea, accessory muscle usage or respiratory distress. Breath sounds: Normal breath sounds. No stridor. No wheezing, rhonchi or rales. Abdominal: General: There is no distension. Palpations: Abdomen is soft. Tenderness: There is no abdominal tenderness. There is no guarding or rebound. Musculoskeletal: Cervical back: Normal range of motion and neck supple. No edema, erythema, rigidity or tenderness. No pain with movement. Normal range of motion. Lymphadenopathy: Cervical: No cervical adenopathy. Skin: General: Skin is warm and dry. Neurological: Mental Status: She is alert and oriented to person, place, and time. ASSESSMENT/PLAN: 1. Dental decay - ICD9: 521.00, ICD10: K02.9 Diagnosed with dental decay. Placed on clindamycin. Has tolerated this antibiotic in the past. Riskand benefit antibiotic discussed. Patient was educated on supportive therapies. Patient will followup with primary care provider as needed. Patient was instructed to immediately proceed to emergency room for any new, worsening, or symptoms lasting longer than anticipated. The patient's clinical presentation is otherwise unremarkable at this time. Based on exam and clinical finding, the patient is stable for discharge. Plan of care was discussed with patient. Patient verbalizes understanding and agrees to plan of care. This note was generated using [employer] software. It may contain errors in wording, punctuation, or spelling. Sha Ray APRN.NOY documented in this encounter[facility]02-07-2025 Telephone encounter Note * Telephone Encounter - Efra Box MA - 04/08/2024 10:19 AM EST Phone number has calling restrictions that prevents the completion of call.Closing encounter Efra Box MA April 08, 2024 10:20 AM [facility]02-07-2025 Miscellaneous Notes* Telephone Encounter - Efra Box MA - 04/08/2024 10:19 AM EST Phone number has calling restrictions that prevents the completion of call.Closing encounter Efra Box MA April 08, 2024 10:20 AM * Telephone Encounter - Kiki Colin MA - 03/30/2024 1:22 PM EST Left message for patient to contact office. Kiki Colin MA * Telephone Encounter - Ignacio Cheatham MD - 03/30/2024 11:17 AM EST It was previously sent in. Does she need new script? * Telephone Encounter - Fabiola Jesus RN - 03/30/2024 11:01 AM EST Patient calls and states that she had talked to Dr. Hill regarding medication. Patient states that Dr. Hill told her that Cymbalta 30 mg would be ok for her to take with her kidney issues. Fabiola Jesus, RN documented in this encounter[facility]02-05-2025 Telephone encounter Note * Telephone Encounter - Anat Lopez APRN.CNP - 04/06/2024 11:45 AM EST Actionable Finding Follow up Patient Name: Margareth Gonzalez eMRN: [id number] : 1965 Patient Preferred PCP: Ignacio Cheatham MD 07/01/2024 in [facility] with IGNACIO CHEATHAM - 6 month follow up Situation: Date of Actionable Finding Scan: 04/03/2023 Type of Imaging: CT chest Actionable Finding(s): Although the majority of the pulmonary nodules, including a 1 cm nodular opacity anteriorly within the right middle lobe, are stable, a few new subcentimeter pulmonary nodules have developed in the interval, measuring up to 4 mm in size. Continued interval surveillance is recommended. Radiologist recommendation: CT chest Chart review summarized: Imaging order actively on file [x] If on file, is imaging scheduled [] Imaging order that needs scheduled: CT chest Reason for imaging: Lung nodules Ordering provider: Dr. Ignacio Cheatham MD [phone] Outreach attempts for Actionable Finding: MYC user active [x] SHIELA outreach [facility] [employer]t sent 04/06/2024 Outcome: Added to ISN April 2024 last Per our protocol, this Actionable Finding is Closed based on the Final Criterion : Patient completed imaging that qualifies closure of the actionable finding Scheduled-07/27/2024 Anat Lopez APRN.CNP Actionable Findings [facility] [place] Office: [phone] [facility] Work Phone: 1(686) 269-264702-05-2025 Miscellaneous Notes* Telephone Encounter - Anat Lopez APRN.CNP - 04/06/2024 11:45 AM EST Actionable Finding Follow up Patient Name: Margareth Gonzalez eMRN: [id number] : 1965 Patient Preferred PCP: Ignacio Cheatham MD 07/01/2024 in [facility] with IGNACIO CHEATHAM - 6 month follow up Situation: Date of Actionable Finding Scan: 04/03/2023 Type of Imaging: CT chest Actionable Finding(s): Although the majority of the pulmonary nodules, including a 1 cm nodular opacity anteriorly within the right middle lobe, are stable, a few new subcentimeter pulmonary nodules have developed in the interval, measuring up to 4 mm in size. Continued interval surveillance is recommended. Radiologist recommendation: CT chest Chart review summarized: Imaging order actively on file [x] If on file, is imaging scheduled [] Imaging order that needs scheduled: CT chest Reason for imaging: Lung nodules Ordering provider: Dr. Ignacio Cheatham MD [phone] Outreach attempts for Actionable Finding: MYC user active [x] SHEILA outreach MyChart sent 04/06/2024 Outcome: Added to ISN April 2024 last Per our protocol, this Actionable Finding is Closed based on the Final Criterion : Patient completed imaging that qualifies closure of the actionable finding Scheduled-07/27/2024 Anat Lopez APRN.CNP Actionable Findings [facility] [place] Office: [phone] documented in this encounterFisher[facility]01-29-2025 Telephone encounter Note * Telephone Encounter - Kiki Colin MA - 03/30/2024 1:22 PM EST Left message for patient to contact office. Kiki Colin MA [facility]01-29-[facility] Telephone encounter Note* Telephone Encounter - Ignacio Cheatham MD - 03/30/2024 11:17 AM EST It was previously sent in. Does she need new script? [facility]01-[facility] Telephone encounter Note* Telephone Encounter - Fabiola Jesus RN - 03/30/2024 11:01 AM EST Patient calls and states that she had talked to Dr. Hill regarding medication. Patient states that Dr. Hill told her that Cymbalta 30 mg would be ok for her to take with her kidney issues. Fabiola Jesus RN [facility]01-27-2025 Telephone encounter Note* Telephone Encounter - June Heath MA - 03/28/2024 2:45 PM EST 03/28-Attempted to contact Elenita at [facility]. Recording states out of office until 2. Left detailed message on identified VM advising to refax form to provider office. June Heath MA [facility]01-27-2025 Miscellaneous Notes* Telephone Encounter - June Heath MA - 03/28/2024 2:45 PM EST 03/28-Attempted to contact Elenita at [facility]. Recording states out of office until 2. Left detailed message on identified VM advising to refax form to provider office. June Heath MA * Telephone Encounter - Georgina Salmon RN - 03/23/2024 1:49 PM EST Elenita with [facility] calling and states she will be faxing over forms regarding a Medicaid Program for patient. Please add ICD codes to form, and then fax form back to number provided. For any questions, Call Elenita at [phone] Georgina Salmon RN documented in this encounterFisher-[facility]01-27-2025 NoteHNO ID: [id number] Author: ?, ?, ? Service: ? Author Type: ? Type: Progress Notes Filed: 03/28/2024 11:34 Note Text: POPULATION HEALTH NAVIGATION OUTREACH Action/[facility] Support: Called pt to schedule an appt in Pain Management. Lvm for pt to call [phone] for scheduling. Reason for Outreach Care Gap/HCC or Scheduling Wellness Visits Care Gaps due: N/A Patient Contacted: Spoke to patient/parent/or legal guardian Patient identified by name and : No Navigation Signature: Krissy Paulino March 28, 2024 11:34 [facility]01-27-2025 History of Present illness Narrative* Krissy Paulino - 03/28/2024 11:33 AM EST POPULATION HEALTH NAVIGATION OUTREACH Action/[facility] Support: Called pt to schedule an appt in Pain Management. Lvm for pt to call [phone] for scheduling. Reason for Outreach Care Gap/HCC or Scheduling Wellness Visits Care Gaps due: N/A Patient Contacted: Spoke to patient/parent/or legal guardian Patient identified by name and : No Navigation Signature: Krissy Paulino March 28, 2024 11:34 AM documented in this encounterFisher-[facility]01-27-2025 NotePatient Outreach (NETNAV) Margareth GONZALEZ ([id number]) 1965 F [place] Date Time Provider Department 03/28/24 NO PCP NETNAV During your visit today, we recorded the following information about you: Krissy Paulino 03/28/2024 11:34 AM Signed POPULATION HEALTH NAVIGATION OUTREACH Action/[facility] [place] Support: Called pt to schedule an appt in Pain Management. Lvm for pt to call [phone] for scheduling. Reason for Outreach Care Gap/HCC or Scheduling Wellness Visits Care Gaps due: N/A Patient Contacted: Spoke to patient/parent/or legal guardian Patient identified by name and : No Navigation Signature: Krissy Paulino March 28, 2024 11:34 AM Allergies As of Date: 03/28/2024 Noted Allergy Reaction VICODIN (HYDROCODONE-ACETAMINOPHE*09/23/2007 11 - Vomiting BALSAM 115 09/23/2007 BALSAM JUAN 09/10/2022 16 - Unknown BARIUM SULFATE 05/01/2023 16 - Unknown BENADRYL ALLERGY DECONGESTANT 05/01/2023 9 - Itching BENADRYL (DIPHENHYDRAMINE HCL) 09/23/2007 2 - Rash 9 - Itching CODEINE 09/23/2007 11 - Vomiting 14 - Other: See Comments LISINOPRIL 05/26/2008 15 - Contraindication-[facility]* Comments: Acute renal failure MOLD 09/23/2007 NSAIDS (NON-STEROIDAL ANTI-INFLAM*09/13/2012 14 - Other: See Comments Comments: Unable to take nsaids after having gastric bypass. PENICILLINS 09/23/2007 10 - Anaphylaxis SEASONAL ALLERGIES 12/14/2008 14 - Other: See Comments Comments: Nose runs, sneezing... TETRACYCLINE 09/23/2007 2 - Rash VANILLA EXTRACT 09/23/2007 VANILLA EXTRACT FLAVOR 09/10/2022 16 - Unknown Date Reviewed: 03/25/2024 Reviewed by: Ada Cheng MA - Fully Assessed Prescriptions as of 03/28/2024 - hydrOXYzine pamoate (VISTARIL) 25 mg capsule Take 1 capsule by mouth at bedtime as needed. - ondansetron orally disintegrating (ZOFRAN ODT) 4 mg disintegrating tablet Take 1 tablet by mouth every 8 hours as needed for nausea/vomiting. - hydrOXYzine HCl (ATARAX) 50 mg tablet Take 1 tablet by mouth every 6 hours as needed for itching/rash. - NIFEdipine ER (PROCARDIA XL) 30 mg 24 hr tablet Take 1 tablet by mouth every afternoon. - sevelamer carbonate (RENVELA) 800 mg tablet Take 1 tablet by mouth three times a day with meals. Ordered by dialysis - glipiZIDE (GLUCOTROL XL) 5 mg 24 hr tablet Take 10 mg by mouth. Per endocrinology - DULoxetine (CYMBALTA) 30 mg capsule Take 1 capsule by mouth once daily. - amitriptyline (ELAVIL) 100 mg tablet Take 1 tablet by mouth daily at bedtime. - atorvastatin (LIPITOR) 40 mg tablet Take 1 tablet by mouth daily at bedtime. For cholesterol. - omeprazole (PRILOSEC) 20 mg capsule Take 1 capsule by mouth once daily. - sertraline (ZOLOFT) 50 mg tablet Take 1 tablet by mouth once daily. - TRULICITY 1.5 mg/0.5 mL pen injector INJECT 1.5 MG UNDER THE SKIN ONCE A WEEK - acetaminophen (TYLENOL) 500 mg tablet Take 1,000 mg by mouth every 12 hours. - calcitriol (ROCALTROL) 0.25 mcg capsule Take 0.25 mcg by mouth once daily. Per diaylsis - melatonin 5 mg tablet Take 5 mg by mouth. As needed. - flash glucose scanning reader (FREESTYLE FESTUS 2 READER) Use to check glucose 3 times daily and continuously. 1 per year. - flash glucose sensor (FREESTYLE FESTUS 2 SENSOR) kit Use to check glucose 3 times daily and continuously. Change every 14 days. 6 per 90 day supply. - cholecalciferol (VITAMIN D3) 5,000 unit tab Take 5,000 Units by mouth twice daily. - aspirin, enteric coated (ADULT LOW DOSE ASPIRIN) 81 mg EC tablet Take 1 tablet by mouth once daily. - Arbirxcp-Lr-Piy-Fe-FA ( VITAMIN) ORAL Tab Take 1 tablet by mouth once daily. Meds Comments as of 11/28/2017: Pt states all meds were just gone over. Did not go over meds. Swathi Haddad Ma November 28, 2017 Problem List As Of Date 03/28/2024 Noted Resolved Acute gastritis [K29.00] 12/16/2007 08/04/2022 DM w/o complication type II, uncontrolled [IMO0*03/09/2008 12/07/2014 Routine gynecological examination [Z01.419] 03/09/2008 04/16/2017 Class: Chronic OBESITY NOS [E66.9] 03/09/2008 Acute anemia [D64.9] 03/09/2008 Background diabetic retinopathy (HCC) [E11.3299]03/09/2008 Asthma [J45.909] 03/09/2008 DIABETIC FOOT ULCER [L97.509] 03/09/2008 04/16/2017 CHOLELITHIASIS NOS [K80.20] 03/09/2008 Bipolar disorder, unspecified (HCC) [F31.9] 03/09/2008 Essential hypertension, benign [I10] 03/27/2008 03/16/2015 Primary hypertension [I10] Type 2 diabetes mellitus with stage 4 chronic k* Pain in limb [M79.609] 06/29/2008 02/21/2019 Dermatophytosis of nail [B35.1] 06/29/2008 04/20/2020 Corns and callosities [L84] 06/29/2008 04/16/2017 Unspecified Iron Deficiency Anemia [D50.9] 09/21/2008 EDEMA [R60.9] 09/21/2008 Ulcer of heel and midfoot (HCC) [L97.409] 02/08/2009 04/16/2017 Chronic pain [G89.29] 09/24/2009 02/21/2019 Fibromyalgia [M79.7] 09/24/2009 Neuropa (more content not included)...[facility]01-24-2025 History of Present illness Narrative* Ignacio Cheatham MD - 03/25/2024 11:00 AM EST Patient presents with: Hospital F/U HPI: Patient presents today for office visit for HOSPITAL/ER FOLLOW UP: Reason for visit: concerns of TIA. Left hand numbness, some slurred speech, and facial droop duringdialysis. Symptoms resolved upon arrival to ER. Admitted for observation. Which facility: [facility] Date of visit: 03/17/24-03/18/24 Diagnosis: numbness Testing done: CTA, MRI, ECHO and labs. Treatment given: Tylenol Current symptoms: headaches Symptoms only lasted a half an hour. She wonders if it could have been related to recent fall. Has some head soreness where the fall was which was before the tia but her scan was ok. No changes in meds. They had referred her to follow with neurology. She would prefer to see a [facility] neurologist. Is on a statin and asa a day. Having increased issues with her spinal stenosis. Last had MRI in 2022. Has been leapfrogging her meds due to cost. Had labs ordered which have . MEDICATIONS: Current Outpatient Medications Medication Sig hydrOXYzine HCl (ATARAX) 50 mg tablet Take 1 tablet by mouth every 6 hours as needed for itching/rash. ondansetron orally disintegrating (ZOFRAN ODT) 4 mg disintegrating tablet Take 1 tablet by mouth every 8 hours as needed for nausea/vomiting. NIFEdipine ER (PROCARDIA XL) 30 mg 24 hr tablet Take 1 tablet by mouth every afternoon. sevelamer carbonate (RENVELA) 800 mg tablet Take 1 tablet by mouth three times a day with meals. Ordered by dialysis glipiZIDE (GLUCOTROL XL) 5 mg 24 hr tablet Take 10 mg by mouth. Per endocrinology DULoxetine (CYMBALTA) 30 mg capsule Take 1 capsule by mouth once daily. amitriptyline (ELAVIL) 100 mg tablet Take 1 tablet by mouth daily at bedtime. atorvastatin (LIPITOR) 40 mg tablet Take 1 tablet by mouth daily at bedtime. For cholesterol. omeprazole (PRILOSEC) 20 mg capsule Take 1 capsule by mouth once daily. sertraline (ZOLOFT) 50 mg tablet Take 1 tablet by mouth once daily. TRULICITY 1.5 mg/0.5 mL pen injector INJECT 1.5 MG UNDER THE SKIN ONCE A WEEK acetaminophen (TYLENOL) 500 mg tablet Take 1,000 mg by mouth every 12 hours. calcitriol (ROCALTROL) 0.25 mcg capsule Take 0.25 mcg by mouth once daily. Per diaylsis melatonin 5 mg tablet Take 5 mg by mouth. As needed. flash glucose scanning reader (Wannyi FESTUS 2 READER) Use to check glucose 3 times daily and continuously. 1 per year. flash glucose sensor (FREESTYLE FESTUS 2 SENSOR) kit Use to check glucose 3 times daily and continuously. Change every 14 days. 6 per 90 day supply. cholecalciferol (VITAMIN D3) 5,000 unit tab Take 5,000 Units by mouth twice daily. aspirin, enteric coated (ADULT LOW DOSE ASPIRIN) 81 mg EC tablet Take 1 tablet by mouth once daily.(Patient taking differently: Take 81 mg by mouth every morning.) Khzkoggx-Tl-Lmq-Fe-FA ( VITAMIN) ORAL Tab Take 1 tablet by mouth once daily. No current facility-administered medications for this visit. ALLERGIES: ALLERGIES Allergen Reactions Vicodin [Hydrocodon* Vomiting Balsam 115 Balsam [place] Unknown Barium Sulfate Unknown Benadryl Allergy De* Itching Benadryl [Diphenhyd* Rash, Itching Codeine Vomiting, Other: See Comments Lisinopril Contraindication-Medical [facility] Acute renal failure Mold Nsaids (Non-Steroid* Other: See Comments Unable to take nsaids after having gastric bypass. Penicillins Anaphylaxis Seasonal Allergies Other: See Comments Nose runs, sneezing... Tetracycline Rash Vanilla Extract Vanilla Extract [place]* Unknown PAST MEDICAL HISTORY Diagnosis Date Acute gastritis without mention of hemorrhage Allergic rhinitis Anaphylaxis Anemia Back pain Benign essential tremor Bipolar I disorder, most recent episode (or current) unspecified sectrum Bone mass Candidiasis, intertrigo Chronic kidney disease Contraceptive management Depression Diabetes ([facility]) Diarrhea DVT, lower extremity ([facility]) 08/2014 Right leg (6) Esophagitis ESRD (end stage renal disease) ([facility]) 07/03/2022 Facial fracture due to fall ([facility]) ([facility]) Fatigue Fibromyalgia Fracture Fracture of shaft of fibula GERD (gastroesophageal reflux disease) HLD (hyperlipidemia) on tricor Hyperlipidemia Hypertension Hypomagnesemia Hypopotassemia IBS (irritable bowel syndrome) Insomnia Intertrigo Knee pain Morbid obesity ([facility]) 03/11/2011 Myalgia Nausea Neck pain Neuropathy Nocturnal leg cramps Non-cardiac chest pain Obesity CASSIE (obstructive sleep apnea) 07/08/2011 Other polyp of sinus Other specified anemias Personal history of unspecified urinary disorder PMH - PAST MEDICAL HISTORY OF left knee surgery x3 Pulmonary nodules Pyelonephritis, acute Restless leg Ruptured appendicitis S/P gastric bypass Snoring Type 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, not stated as uncontrolled(250.50) on oral medications and Lanuts Unspecified asthma(493.90) on inhalers Unspecified essential hypertension on medical management Upper abdominal pain Urinary frequency Vitamin D deficiency PAST SURGICAL HISTORY Procedure Laterality Date CHOLECYSTECTOMY 04/02/2011 COLONOSCOPY W/BIOPSY SINGLE/MULTIPLE 12/16/2007 DILATION & CURETTAGE DX&/THER NONOBSTETRIC Dilation & curettage EGD TRANSORAL BIOPSY SINGLE/MULTIPLE 12/16/2007 ESOPHAGOGASTRODUODENOSCOPY TRANSORAL DIAGNOSTIC age 14 EGD LAPAROSCOPIC APPENDECTOMY 05/16/2011 MIDLINE INSERTION/CONSULT 07/29/2012 Lap Paul-en-Y gastric bypass PAST SURGICAL HISTORY OF age 14 left knee surgery, for dislocation PAST SURGICAL HISTORY OF age 5 warts removed PAST SURGICAL HISTORY OF 03/02/2007 laser surgery to both eyes for diabetic retinopathy PAST SURGICAL HISTORY OF 04/26/2008 Bilateral eye surgery- vitrectomy PAST SURGICAL HISTORY OF 06/30/2008 Left eye air fluid exchange PAST SURGICAL HISTORY OF 04/09, 07/07 retinal vitrectomies PAST SURGICAL HISTORY OF Left 07/24/2022 Left forearm AVG with [address] Valenzuela STRESS TEST 200p, 2014 Normal results TUBAL LIGATION HX ablation at the same time FAMILY HISTORY Problem Relation Age of Onset Thyroid Father Blindness Mother Diabetic retinopathy Diabetes Mother from renal disease Coronary Artery Disease Mother other (Diabetic Retinaopathy) Mother Cancer Mother uterine Stroke Mother Kidney Disease Mother Thyroid Sister skin cancer Kidney Disease Sister Diabetes Sister Diabetes Sister Coronary Artery Disease Brother Diabetes Brother Coronary Artery Disease Brother Colon Cancer Other none Breast Cancer Other none Social History Tobacco Use Smoking status: Former Current packs/day: 0.00 Average packs/day: 2.0 packs/day for 6.0 years (12.0 ttl pk-yrs) Types: Cigarettes Start date: 08/01/1983 Quit date: 07/31/1989 Years since quittin.6 Smokeless tobacco: Never Tobacco comments: Quit at age 24 Vaping Use Vaping status: Never Used Substance Use Topics Alcohol use: Not Currently Comment: rare Drug use: No Comment: Tried marijuana once - never used it again. Reviewed current medications, allergies, past medical history, surgical history, family history andsocial history today. REVIEW OF SYSTEMS Requests hydroxyzine. Will give dialyzable dose. All other reviewed and negative other than HPI. HEALTH MAINTENANCE: Reviewed health maintenance issues today and recommended the following in detail. Depression Screening Never done BP Controlled (<130/80) Never done Mammogram Screening due on 04/10/2023 HbA1C due on 07/22/2023 LDL Cholesterol due on 08/27/2023 VITALS: BP 186/84 Pulse 96 Ht 172.7 cm (5' 8) Wt 85.9 kg (189 lb 6 oz) LMP 09/20/2014 SpO2 97% BMI 28.79 kg/m Last 4 Encounter Wt Readings: Date: Wt: 12/25/2023 84.2 kg (185 lb 9.6 oz) 12/21/2023 85.7 kg (189 lb) 12/11/2023 85.9 kg (189 lb 6 oz) 09/14/2023 88 kg (194 lb) PHYSICAL EXAMINATION: General appearance: Well appearing, alert, in no acute distress, well-hydrated, well nourished. Skin: Skin color, texture, turgor normal, no suspicious rashes or lesions Head: Normocephalic, no masses, lesions, tenderness or abnormalitie Lungs: Lungs clear to auscultation. No wheezing, rhonchi, rales Heart: RRR without murmur, gallop, or rubs. No ectopy Abdomen: Normal abdominal exam, Abdomen soft, non-tender. Bowel sounds normal. No masses, organomegaly Extremities: No deformities, edema, skin discoloration, clubbing or cyanosis. Good capillary refill. Musculoskeletal: No joint swelling, deformity, or tenderness Peripheral pulses: Normal Neuro: Gait normal. Reflexes normal and symmetric. Sensation grossly intact., Negative findings: muscle tone normal, muscle strength normal ASSESSMENT/PLAN: 1. TIA (transient ischemic attack) - ICD9: 435.9, ICD10: G45.9 (primary diagnosis) - continue to see neurology. - CONSULT TO NEUROLOGY 2. Type 2 diabetes, controlled, with neuropathy (HCC) - ICD9: 250.60, 357.2, ICD10: E11.40 - Controlled - Continue current medications 3. Primary hypertension - ICD9: 401.9, ICD10: I10 - Controlled - Continue current medications - HEMOGLOBIN A1C - LIPID PANEL BASIC 4. Type 2 diabetes mellitus with stage 4 chronic kidney disease, without long- term current use of insulin (HCC) - ICD9: 250.40, 585.4, ICD10: E11.22, N18.4 - Controlled - Continue current medications - HEMOGLOBIN A1C - LIPID PANEL BASIC 5. ESRD (end stage renal disease) (HCC) - ICD9: 585.6, ICD10: N18.6 - per nephrology. 6. Spinal stenosis of lumbar region, unspecified whether neurogenic claudication present - ICD9: 724.02, ICD10: M48.061 - CONSULT TO PAIN MGT 7. Anxiety - ICD9: 300.00, ICD10: F41.9 - HYDROXYZINE PAMOATE 25 MG CAPSULE - ONDANSETRON 4 MG DISINTEGRATING TABLET Ignacio Cheatham MD documented in this encounter[facility]01-24-2025 NoteHNO ID: [id number] Author: IGNACIO CHEATHAM MD Service: ? Author Type: Physician Type: Progress Notes Filed: 03/25/2024 11:30 Note Text: Patient presents with: Hospital F/U HPI: Patient presents today for office visit for HOSPITAL/ER FOLLOW UP: Reason for visit: concerns of TIA. Left hand numbness, some slurred speech, and facial droop during dialysis. Symptoms resolved upon arrival to ER. Admitted for observation. Which facility: [facility] Date of visit: 03/17/24-03/18/24 Diagnosis: numbness Testing done: CTA, MRI, ECHO and labs. Treatment given: Tylenol Current symptoms: headaches Symptoms only lasted a half an hour. She wonders if it could have been related to recent fall. Has some head soreness where the fall was which was before the tia but her scan was ok. No changes in meds. They had referred her to follow with neurology. She would prefer to see a [facility] neurologist. Is on a statin and asa a day. Having increased issues with her spinal stenosis. Last had MRI in 2022. Has been leapfrogging her meds due to cost. Had labs ordered which have . MEDICATIONS: Current Outpatient Medications Medication Sig hydrOXYzine HCl (ATARAX) 50 mg tablet Take 1 tablet by mouth every 6 hours as needed for itching/rash. ondansetron orally disintegrating (ZOFRAN ODT) 4 mg disintegrating tablet Take 1 tablet by mouth every 8 hours as needed for nausea/vomiting. NIFEdipine ER (PROCARDIA XL) 30 mg 24 hr tablet Take 1 tablet by mouth every afternoon. sevelamer carbonate (RENVELA) 800 mg tablet Take 1 tablet by mouth three times a day with meals. Ordered by dialysis glipiZIDE (GLUCOTROL XL) 5 mg 24 hr tablet Take 10 mg by mouth. Per endocrinology DULoxetine (CYMBALTA) 30 mg capsule Take 1 capsule by mouth once daily. amitriptyline (ELAVIL) 100 mg tablet Take 1 tablet by mouth daily at bedtime. atorvastatin (LIPITOR) 40 mg tablet Take 1 tablet by mouth daily at bedtime. For cholesterol. omeprazole (PRILOSEC) 20 mg capsule Take 1 capsule by mouth once daily. sertraline (ZOLOFT) 50 mg tablet Take 1 tablet by mouth once daily. TRULICITY 1.5 mg/0.5 mL pen injector INJECT 1.5 MG UNDER THE SKIN ONCE A WEEK acetaminophen (TYLENOL) 500 mg tablet Take 1,000 mg by mouth every 12 hours. calcitriol (ROCALTROL) 0.25 mcg capsule Take 0.25 mcg by mouth once daily. Per diaylsis melatonin 5 mg tablet Take 5 mg by mouth. As needed. flash glucose scanning reader (SimpleReachSTYLE FESTUS 2 READER) Use to check glucose 3 times daily and continuously. 1 per year. flash glucose sensor (FREESTYLE FESTUS 2 SENSOR) kit Use to check glucose 3 times daily and continuously. Change every 14 days. 6 per 90 day supply. cholecalciferol (VITAMIN D3) 5,000 unit tab Take 5,000 Units by mouth twice daily. aspirin, enteric coated (ADULT LOW DOSE ASPIRIN) 81 mg EC tablet Take 1 tablet by mouth once daily. (Patient taking differently: Take 81 mg by mouth every morning.) Zrzrtrld-Ea-Dgy-Fe-FA ( VITAMIN) ORAL Tab Take 1 tablet by mouth once daily. No current facility-administered medications for this visit. ALLERGIES: ALLERGIES Allergen Reactions Vicodin [Hydrocodon* Vomiting Balsam 115 Balsam [place] Unknown Barium Sulfate Unknown Benadryl Allergy De* Itching Benadryl [Diphenhyd* Rash, Itching Codeine Vomiting, Other: See Comments Lisinopril Contraindication-Medical Surgical Acute renal failure Mold Nsaids (Non-Steroid* Other: See Comments Unable to take nsaids after having gastric bypass. Penicillins Anaphylaxis Seasonal Allergies Other: See Comments Nose runs, sneezing... Tetracycline Rash Vanilla Extract Vanilla Extract Fla* Unknown PAST MEDICAL HISTORY Diagnosis Date Acute gastritis without mention of hemorrhage Allergic rhinitis Anaphylaxis Anemia Back pain Benign essential tremor Bipolar I disorder, most recent episode (or current) unspecified sectrum Bone mass Candidiasis, intertrigo Chronic kidney disease Contraceptive management Depression Diabetes ([facility]) Diarrhea DVT, lower extremity ([facility]) 08/2014 Right leg (6) Esophagitis ESRD (end stage renal disease) ([facility]) 07/03/2022 Facial fracture due to fall ([facility]) ([facility]) Fatigue Fibromyalgia Fracture Fracture of shaft of fibula GERD (gastroesophageal reflux disease) HLD (hyperlipidemia) on tricor Hyperlipidemia Hypertension Hypomagnesemia Hypopotassemia IBS (irritable bowel syndrome) Insomnia Intertrigo Knee pain Morbid obesity ([facility]) 03/11/2011 Myalgia Nausea Neck pain Neuropathy Nocturnal leg cramps Non-cardiac chest pain Obesity CASSIE (obstructive sleep apnea) 07/08/2011 Other polyp of sinus Other specified anemias Personal history of unspecified urinary disorder PMH - PAST MEDICAL HISTORY OF left knee surgery x3 Pulmonary nodules Pyelonephritis, acute Restless leg Ruptured appendicitis S/P gastric bypass Snoring Type II or unspecified (more content not included)...[facility] 03-23-2024 Telephone encounter Note* Telephone Encounter - Georgina Salmon RN - 03/23/2024 1:49 PM EST Elenita with [employer] calling and states she will be faxing over forms regarding a Medicaid Program for patient. Please add ICD codes to form, and then fax form back to number provided. For any questions, Call Elenita at [phone] Georgina Salmon RN [facility]01-17-2025 [facility] Medical Records Department [address] [place] [id number] Discharge Summary 03/18/24 1134 MR#: [id number] Acct: [id number] Name: Margareth GONZALEZ Rep #: [id number] : 1965 58 From: Branden Banks MD PCP: Dr. Ignacio Cheatham MD Status:ADM CHRISTA Location: [place] [address] Providers Date of Admission: 03/17/24 Date of Discharge: 03/18/24 Primary Care Physician: Dr. Ignacio Cheatham MD Reason For Visit: TIA Diagnosis Discharge Diagnosis (1) Hand numbness: Status: Acute Code(s): R20.0 - Anesthesia of skin (2) Dysarthria: Status: Acute Code(s): R47.1 - Dysarthria and anarthria (3) ESRD (end stage renal disease) on dialysis: Status: Acute Code(s): N18.6 - End stage renal disease; Z99.2 - Dependence on renal dialysis Plan 58-year-old female is being admitted for the concern of TIA with slurred speech, facial drop and dysarthria during the beginning of dialysis. Symptoms resolved on ED arrival. 1. Left hand numbness, seems intermittent and chronic: Patient is being admitted in PCU. The witness person said that she has some slurred speech. MRI brain negative for acute infarct. CTA head and neck showed no significant stenosis thrombosis aneurysm or dissection. Echo LA mildly enlarged. Bubble contrast ID negative for PFO/ASD. Patient is discharged home. Patient already on baby aspirin and high intensity atorvastatin therefore continued. Labs shows LDL 105, triglyceride 110. A1c 10.5%. 2. ESRD on hemodialysis. 3. Mild chronic anemia due to CKD. Hemoglobin 10.8/33%. Platelet count normal. 4. 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 A1c 10.5%. Follow with PCP for optimal glucose control. 5. Dyslipidemia: On atorvastatin. 6. Other comorbidities include GERD, fibromyalgia, anxiety and depression: Discharge medication conciliatio Discharge medication reconciliation done. Discharge follow-up instructions completed. Discharge process discussed with the patient and all questions were answered to patient's satisfaction. Follow with PCP in 1 to 2 weeks Total time spent, exact 35 minutes on discharge meds reconciliation, examination, coordination of care with nurses and ancillary staff, review of imaging and blood test and discussion with the patient on follow-up instructions. Medications at Discharge Home Medications cholecalciferol (vitamin D3) 25 mcg (1,000 unit) capsule (Vitamin D3) 5,000 unit PO DAILY SUPPLEMENT 10/03/13 omeprazole 20 mg capsule,delayed release 20 mg PO DAILY 08/23/14 glipizide 5 mg tablet 10 mg PO DAILY DIABETES 04/28/15 melatonin 5 mg capsule 10 mg PO QHS sleep 05/27/16 amitriptyline 100 mg tablet 100 mg PO QHS DEPRESSION 09/10/22 atorvastatin 40 mg tablet 40 mg PO QHS CHOLESTEROL 09/10/22 calcitriol 0.25 mcg capsule 1.5 mcg PO .TuThursSat dialysis day 09/10/22 dulaglutide 1.5 mg/0.5 mL subcutaneous pen injector (Trulicity) 1.5 mg subcut CORNELL DIABETES 09/10/22 sevelamer carbonate 800 mg tablet 1,600 mg PO TID 02/04/23 aspirin 81 mg capsule 81 mg PO DAILY 06/29/23 hydroxyzine HCl 50 mg tablet 50 mg PO Q6H PRN itching 06/29/23 sertraline 50 mg tablet 50 mg PO DAILY 06/29/23 acetaminophen 325 mg capsule (Tylenol) 650 mg PO Q6H PRN pain 07/02/23 ondansetron HCl 4 mg tablet 4 mg PO Q8H PRN PRN nausea and vomiting 07/02/23 oxycodone-acetaminophen 5 mg-325 mg tablet 1 tab PO Q6H PRN PRN Pain 3 days #12 TABLETS 07/24/23 nifedipine 30 mg tablet,extended release 24 hr 30 mg PO QHS BP 03/17/24 Physical Exam Narrative Seen and examined She stated she has intermittent left hand numbness that had passed. She is unclear about slurred speech/dysarthria but one of the weakness, noticed slurred speech Physical exam General: Alert, Oriented x3, Cooperative. Overweight, BMI 28.9 kg/m??? HEENT: Atraumatic, PERRLA, EOMI, Normocephalic Oral: No Gingival or Mucosal Lesions/ Ulcerations Neck: Supple, No JVD, Negative Carotid Bruits Chest wall/Lungs: Air entry diminished in bilateral lung bases. No crepitation/rhonchi Cardiovascular: Regular rate, Regular Rhythm, Normal S1, Normal S2, No M/G/R Abdomen: Bowel Sounds Present, Soft, Non Tender, Non-Distended : No dysuria. No renal angle tenderness. No suprapubic tenderness. Extremities: Left forearm AV fistula. No edema, Capillary Refill Less than 3 Seconds Skin: No rashes, No breakdown Musculoskeletal: No Tenderness to Palpation of Joints or Extremities. ROM fully intact Neurological: Cranial nerves II-XII grossly intact, DTR 2+/4. No acute focal neurological deficit. Psych/Mental Status: Normal Affect, Appropriate. Weight / BMI Weight Weight: 190 lb 0.615 oz Body Mass Index (BMI) 28.8 ABG / Lab / Microbiology Data 03/18/24 10:03 03/18/24 10:03 Laboratory: Laboratory Results - last 24 hr 03/17/24 17:59: POC Glucose 248 H 01 (more content not included)...[facility]01-03-2025 Telephone encounter Note* Telephone Encounter - Linda Sotelo - 03/04/2024 1:47 PM EST Images from the original note were not included. Jenni Castro RN Wagner, [place]; Linda Sotelo Me! Can you assist me with scheduling this? I tried but it needs financial clearance. She needs scheduled in [place] on a M, W, F, d/t dialysis the other days. Thanks! Jenni STERLING Testing Waiting on referral to be authorized, will call when it is. [facility]01-03-2025 Miscellaneous Notes* Telephone Encounter - Linda Sotelo - 03/04/2024 1:47 PM EST Images from the original note were not included. Jenni Castro RN Wagner, Sydney; Linda Sotelo Me! Can you assist me with scheduling this? I tried but it needs financial clearance. She needs scheduled in [place] on a M, W, F, d/t dialysis the other days. Thanks! Jenni STERLING Testing Waiting on referral to be authorized, will call when it is. documented in this [facility] NoteHNO ID: [id number] Author: SAIRA JACKSON, DO Service: ? Author Type: Physician Type: Progress Notes Filed: 02/26/2024 14:11 Note Text: [facility] [place] DEPARTMENT OF VASCULAR SURGERY OUTPATIENT VISIT DATE February 09, 2024 OUTPATIENT VISIT TYPE ESTABLISHED SERVICE DATE: 02/09/2024 SERVICE TIME: 12:06 PM PRIMARY CARE PHYSICIAN: Ignacio Cheatham MD HISTORY OF PRESENT ILLNESS: Ms. Gonzalez is a 58 year old female who presents today for a vascular surgery follow-up visit for her av fistula. States they are using her fistula at dialysis. States it is painful. PAST MEDICAL HISTORY Diagnosis Date Acute gastritis without mention of hemorrhage Allergic rhinitis Anaphylaxis Anemia Back pain Benign essential tremor Bipolar I disorder, most recent episode (or current) unspecified sectrum Bone mass Candidiasis, intertrigo Chronic kidney disease Contraceptive management Depression Diabetes ([facility]) Diarrhea DVT, lower extremity ([facility]) 08/2014 Right leg (6) Esophagitis ESRD (end stage renal disease) ([facility]) 07/03/2022 Facial fracture due to fall ([facility]) ([facility]) Fatigue Fibromyalgia Fracture Fracture of shaft of fibula GERD (gastroesophageal reflux disease) HLD (hyperlipidemia) on tricor Hyperlipidemia Hypertension Hypomagnesemia Hypopotassemia IBS (irritable bowel syndrome) Insomnia Intertrigo Knee pain Morbid obesity ([facility]) 03/11/2011 Myalgia Nausea Neck pain Neuropathy Nocturnal leg cramps Non-cardiac chest pain Obesity CASSIE (obstructive sleep apnea) 07/08/2011 Other polyp of sinus Other specified anemias Personal history of unspecified urinary disorder PMH - PAST MEDICAL HISTORY OF left knee surgery x3 Pulmonary nodules Pyelonephritis, acute Restless leg Ruptured appendicitis S/P gastric bypass Snoring Type 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, not stated as uncontrolled(250.50) on oral medications and Lanuts Unspecified asthma(493.90) on inhalers Unspecified essential hypertension on medical management Upper abdominal pain Urinary frequency Vitamin D deficiency PAST SURGICAL HISTORY Procedure Laterality Date CHOLECYSTECTOMY 04/02/2011 COLONOSCOPY W/BIOPSY SINGLE/MULTIPLE 12/16/2007 DILATION AND CURETTAGE DXAND/THER NONOBSTETRIC Dilation AND curettage EGD TRANSORAL BIOPSY SINGLE/MULTIPLE 12/16/2007 ESOPHAGOGASTRODUODENOSCOPY TRANSORAL DIAGNOSTIC age 14 EGD LAPAROSCOPIC APPENDECTOMY 05/16/2011 MIDLINE INSERTION/CONSULT 07/29/2012 Lap Paul-en-Y gastric bypass PAST SURGICAL HISTORY OF age 14 left knee surgery, for dislocation PAST SURGICAL HISTORY OF age 5 warts removed PAST SURGICAL HISTORY OF 03/02/2007 laser surgery to both eyes for diabetic retinopathy PAST SURGICAL HISTORY OF 04/26/2008 Bilateral eye surgery- vitrectomy PAST SURGICAL HISTORY OF 06/30/2008 Left eye air fluid exchange PAST SURGICAL HISTORY OF 04/09, 07/07 retinal vitrectomies PAST SURGICAL HISTORY OF Left 07/24/2022 Left forearm AVG with [address] Valenzuela STRESS TEST 200p, 2014 Normal results TUBAL LIGATION HX ablation at the same time SOCIAL HISTORY Social History Tobacco Use Smoking status: Former Current packs/day: 0.00 Average packs/day: 2.0 packs/day for 6.0 years (12.0 ttl pk-yrs) Types: Cigarettes Start date: 08/01/1983 Quit date: 07/31/1989 Years since quittin.5 Smokeless tobacco: Never Tobacco comments: Quit at age 24 Vaping Use Vaping status: Never Used Substance Use Topics Alcohol use: Not Currently Comment: rare Drug use: No Comment: Tried marijuana once - never used it again. MEDICATIONS: hydrOXYzine HCl (ATARAX) 50 mg tablet Take 1 tablet by mouth every 6 hours as needed for itching/rash. ondansetron orally disintegrating (ZOFRAN ODT) 4 mg disintegrating tablet Take 1 tablet by mouth every 8 hours as needed for nausea/vomiting. NIFEdipine ER (PROCARDIA XL) 30 mg 24 hr tablet Take 1 tablet by mouth every afternoon. sevelamer carbonate (RENVELA) 800 mg tablet Take 1 tablet by mouth three times a day with meals. Ordered by dialysis glipiZIDE (GLUCOTROL XL) 5 mg 24 hr tablet Take 10 mg by mouth. Per endocrinology DULoxetine (CYMBALTA) 30 mg capsule Take 1 capsule by mouth once daily. amitriptyline (ELAVIL) 100 mg tablet Take 1 tablet by mouth daily at bedtime. atorvastatin (LIPITOR) 40 mg tablet Take 1 tablet by mouth daily at bedtime. For cholesterol. omeprazole (PRILOSEC) 20 mg capsule Take 1 capsule by mouth once daily. sertraline (ZOLOFT) 50 mg tablet Take 1 tablet by mouth once daily. TRULICITY 1.5 mg/0.5 mL pen injector INJECT 1.5 MG UNDER THE SKIN ONCE A WEEK acetaminophen (TYLENOL) 500 mg tablet Take 1,000 mg by mouth every 12 hours. calcitriol (ROCALTROL) 0.25 mcg capsule Take 0.25 mcg by mouth once daily. Per diaylsis melatonin 5 mg tablet Take 5 mg by mouth. As needed. (more content not included)...[facility]12-10-2024 History of Present illness Narrative* Saira Jackson, DO - 02/09/2024 11:57 AM EST Images from the original note were not included. [facility] [place] DEPARTMENT OF VASCULAR SURGERY OUTPATIENT VISIT DATE February 09, 2024 OUTPATIENT VISIT TYPE ESTABLISHED SERVICE DATE: 02/09/2024 SERVICE TIME: 12:06 PM PRIMARY CARE PHYSICIAN: Ignacio Cheatham MD HISTORY OF PRESENT ILLNESS: Ms. Gonzalez is a 58 year old female who presents today for a vascular surgery follow-up visit for her av fistula. States they are using her fistula at dialysis. States it is painful. PAST MEDICAL HISTORY Diagnosis Date Acute gastritis without mention of hemorrhage Allergic rhinitis Anaphylaxis Anemia Back pain Benign essential tremor Bipolar I disorder, most recent episode (or current) unspecified sectrum Bone mass Candidiasis, intertrigo Chronic kidney disease Contraceptive management Depression Diabetes ([facility]) Diarrhea DVT, lower extremity ([facility]) 08/2014 Right leg (6) Esophagitis ESRD (end stage renal disease) ([facility]) 07/03/2022 Facial fracture due to fall ([facility]) ([facility]) Fatigue Fibromyalgia Fracture Fracture of shaft of fibula GERD (gastroesophageal reflux disease) HLD (hyperlipidemia) on tricor Hyperlipidemia Hypertension Hypomagnesemia Hypopotassemia IBS (irritable bowel syndrome) Insomnia Intertrigo Knee pain Morbid obesity ([facility]) 03/11/2011 Myalgia Nausea Neck pain Neuropathy Nocturnal leg cramps Non-cardiac chest pain Obesity CASSIE (obstructive sleep apnea) 07/08/2011 Other polyp of sinus Other specified anemias Personal history of unspecified urinary disorder PMH - PAST MEDICAL HISTORY OF left knee surgery x3 Pulmonary nodules Pyelonephritis, acute Restless leg Ruptured appendicitis S/P gastric bypass Snoring Type 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, not stated as uncontrolled(250.50) on oral medications and Lanuts Unspecified asthma(493.90) on inhalers Unspecified essential hypertension on medical management Upper abdominal pain Urinary frequency Vitamin D deficiency PAST SURGICAL HISTORY Procedure Laterality Date CHOLECYSTECTOMY 04/02/2011 COLONOSCOPY W/BIOPSY SINGLE/MULTIPLE 12/16/2007 DILATION & CURETTAGE DX&/THER NONOBSTETRIC Dilation & curettage EGD TRANSORAL BIOPSY SINGLE/MULTIPLE 12/16/2007 ESOPHAGOGASTRODUODENOSCOPY TRANSORAL DIAGNOSTIC age 14 EGD LAPAROSCOPIC APPENDECTOMY 05/16/2011 MIDLINE INSERTION/CONSULT 07/29/2012 Lap Paul-en-Y gastric bypass PAST SURGICAL HISTORY OF age 14 left knee surgery, for dislocation PAST SURGICAL HISTORY OF age 5 warts removed PAST SURGICAL HISTORY OF 03/02/2007 laser surgery to both eyes for diabetic retinopathy PAST SURGICAL HISTORY OF 04/26/2008 Bilateral eye surgery- vitrectomy PAST SURGICAL HISTORY OF 06/30/2008 Left eye air fluid exchange PAST SURGICAL HISTORY OF 04/09, 07/07 retinal vitrectomies PAST SURGICAL HISTORY OF Left 07/24/2022 Left forearm AVG with [address] Valenzuela STRESS TEST 200p, 2014 Normal results TUBAL LIGATION HX ablation at the same time SOCIAL HISTORY Social History Tobacco Use Smoking status: Former Current packs/day: 0.00 Average packs/day: 2.0 packs/day for 6.0 years (12.0 ttl pk-yrs) Types: Cigarettes Start date: 08/01/1983 Quit date: 07/31/1989 Years since quittin.5 Smokeless tobacco: Never Tobacco comments: Quit at age 24 Vaping Use Vaping status: Never Used Substance Use Topics Alcohol use: Not Currently Comment: rare Drug use: No Comment: Tried marijuana once - never used it again. MEDICATIONS: hydrOXYzine HCl (ATARAX) 50 mg tablet Take 1 tablet by mouth every 6 hours as needed for itching/rash. ondansetron orally disintegrating (ZOFRAN ODT) 4 mg disintegrating tablet Take 1 tablet by mouth every 8 hours as needed for nausea/vomiting. NIFEdipine ER (PROCARDIA XL) 30 mg 24 hr tablet Take 1 tablet by mouth every afternoon. sevelamer carbonate (RENVELA) 800 mg tablet Take 1 tablet by mouth three times a day with meals. Ordered by dialysis glipiZIDE (GLUCOTROL XL) 5 mg 24 hr tablet Take 10 mg by mouth. Per endocrinology DULoxetine (CYMBALTA) 30 mg capsule Take 1 capsule by mouth once daily. amitriptyline (ELAVIL) 100 mg tablet Take 1 tablet by mouth daily at bedtime. atorvastatin (LIPITOR) 40 mg tablet Take 1 tablet by mouth daily at bedtime. For cholesterol. omeprazole (PRILOSEC) 20 mg capsule Take 1 capsule by mouth once daily. sertraline (ZOLOFT) 50 mg tablet Take 1 tablet by mouth once daily. TRULICITY 1.5 mg/0.5 mL pen injector INJECT 1.5 MG UNDER THE SKIN ONCE A WEEK acetaminophen (TYLENOL) 500 mg tablet Take 1,000 mg by mouth every 12 hours. calcitriol (ROCALTROL) 0.25 mcg capsule Take 0.25 mcg by mouth once daily. Per diaylsis melatonin 5 mg tablet Take 5 mg by mouth. As needed. flash glucose scanning reader (SimpleReachSTYLE FESTUS 2 READER) Use to check glucose 3 times daily and continuously. 1 per year. flash glucose sensor (FREESTYLE FESTUS 2 SENSOR) kit Use to check glucose 3 times daily and continuously. Change every 14 days. 6 per 90 day supply. cholecalciferol (VITAMIN D3) 5,000 unit tab Take 5,000 Units by mouth twice daily. aspirin, enteric coated (ADULT LOW DOSE ASPIRIN) 81 mg EC tablet Take 1 tablet by mouth once daily.(Patient taking differently: Take 81 mg by mouth every morning.) Lqoujuqw-Bw-Jtk-Fe-FA ( VITAMIN) ORAL Tab Take 1 tablet by mouth once daily. ALLERGIES: ALLERGIES Allergen Reactions Vicodin [Hydrocodon* Vomiting Balsam 115 Balsam [place] Unknown Barium Sulfate Unknown Benadryl Allergy De* Itching Benadryl [Diphenhyd* Rash, Itching Codeine Vomiting, Other: See Comments Lisinopril Contraindication-Medical Surgical Acute renal failure Mold Nsaids (Non-Steroid* Other: See Comments Unable to take nsaids after having gastric bypass. Penicillins Anaphylaxis Seasonal Allergies Other: See Comments Nose runs, sneezing... Tetracycline Rash Vanilla Extract Vanilla Extract Fla* Unknown PHYSICAL EXAM: BP 172/84 (BP Site: Right Arm, BP Position: Sitting, BP Cuff Size: Regular Adult) Pulse 98 LMP 09/20/2014 SpO2 99% Gen- no distress Ext- forearm loop av graft- no pseudoaneurysms, no pulsatility, thrill and bruit present Diagnostic tests reviewed for today's visit: Most recent labs Most recent imaging IMPRESSION: Ms. Gonzalez is a 58 year old female with ESRD, AV graft pain . PLAN and RECOMMENDATIONS: Will get fistula ultrasound and call with results SIGNATURE: Saira Jackson DO PATIENT NAME: Margareth Gonzalez DATE: February 09, 2024 TIME: 12:06 PM documented in [facility] encounter[facility]11-[facility] Telephone encounter Note * Telephone Encounter - Chloe Carpenter LPN - 01/22/2024 9:15 AM EST Faxed as requested. [facility]11-22-2024 Miscellaneous Notes* Telephone Encounter - Chloe Carpenter LPN - 01/22/2024 9:15 AM EST Faxed as requested. * Telephone Encounter - Efra Box MA - 01/21/2024 2:57 PM EST Type of form: [employer] Form received via walk in When form is completed, Fax form to AEP Form has been forwarded to Physician Desk: Dr. Linden Box MA documented in this encounterFisher[facility]11-[facility]-2024 Telephone encounter Note * Telephone Encounter - Efra Box MA - 01/21/2024 2:57 PM EST Type of form: [employer] Form received via walk in When form is completed, Fax form to AEP Form has been forwarded to Physician Desk: Dr. Linden Box MA [facility]11-18-2024 Telephone encounter Note* Telephone Encounter - Cristal Carcamo MA - 01/18/2024 9:45 AM EST Please call pt to set up appt with Pharmacist. Cristal Carcamo MA [facility]11-18-2024 Miscellaneous Notes* Telephone Encounter - Cristal Carcamo MA - 01/18/2024 9:45 AM EST Please call pt to set up appt with Pharmacist. Cristal Carcamo MA * Telephone Encounter - Ignacio Cheatham MD - 01/18/2024 9:09 AM EST done * Telephone Encounter - Arnold Bocanegra LPN - 01/18/2024 9:05 AM EST Patient calling said her insurance is not covering any of her medications. She was asking for referral to pharmacy, last time pharmacist helped her with that. Advised Social Work can assist with patient assistance programs. Please advise documented in this encounterFisher[facility]11-18-2024 Telephone encounter Note * Telephone Encounter - Ignacio Cheatham MD - 01/18/2024 9:09 AM EST done [facility] Telephone encounter Note* Telephone Encounter - Arnold Bocanegra LPN - 01/18/2024 9:05 AM EST Patient calling said her insurance is not covering any of her medications. She was asking for referral to pharmacy, last time pharmacist helped her with that. Advised Social Work can assist with patient assistance programs. Please advise [facility]-18-[facility] Miscellaneous Notes* Telephone Encounter - Arnold Bocanegra LPN - 01/18/2024 9:04 AM EST Patient returned call and went over results, notes from Dr Myrick with understanding. Assisted withtransfer to senior power scheduler to get Sleep Med appt set up. * Telephone Encounter - Chloe Carpenter LPN - 01/14/2024 5:32 PM EST [employer] message also sent to patient. * Telephone Encounter - Elenita Ellison LPN - 01/13/2024 9:18 AM EST Left message to call office. 01/13/2024 9:18 AM. Elenita Ellison LPN * Telephone Encounter - Sha Myrick MD - 01/12/2024 9:49 PM EST Let patient know her sleep study shows sleep apnea. Order placed to see sleep med. [facility] * Telephone Encounter - Arnold Bocanegra LPN - 01/18/2024 9:04 AM EST Patient returned call and went over results, notes from Dr Myrick with understanding. Assisted withtransfer to senior power scheduler to get Sleep Med appt set up. [facility] Telephone encounter Note* Telephone Encounter - Chloe Carpenter LPN - 01/14/2024 5:32 PM EST [employer] message also sent to patient. [facility]11-13-[facility] Telephone encounter Note* Telephone Encounter - Elenita Ellison LPN - 01/13/2024 9:18 AM EST Left message to call office. 01/13/2024 9:18 AM. Elenita Ellison LPN [facility]11-12-2024 Telephone encounter Note* Telephone Encounter - Sha Myrick MD - 01/12/2024 9:49 PM EST Let patient know her sleep study shows sleep apnea. Order placed to see sleep med. [facility]11-07-2024 NoteHNO ID: [id number] Author: ?, ?, ? Service: ? Author Type: ? Type: Progress Notes Filed: 01/07/2024 11:45 Note Text: Sleep Study Check-In Documentation Date: January 07, 2024 Name: Margareth Gonzalez Comments: HST was returned in working order without all sleep questionnaires [facility] History of Present illness Narrative* Dk Mccrary - 01/07/2024 11:44 AM EST Sleep Study Check-In Documentation Date: January 07, 2024 Name: Margareth Gonzalez Comments: HST was returned in working order without all sleep questionnaires Dk Mccrary * Keiko Soriano - 01/04/2024 3:25 PM EST Nomad # [id number] , date shipped out 01-04-24 [employer] only Tracking mailout: [id number] Tracking return: [id number] * Jonn Fortune III, PhD - 01/04/2024 10:17 AM EST January 04, 2024 Standing PSG Orders signed in the last 90 days None Future PSG Orders signed in the last 90 days Ordered Auth. provider HOME SLEEP APNEA TEST (HSAT) [[id number]] 12/25/23 Ignacio Cheatham MD Assoc. diagnoses: CASSIE (obstructive sleep apnea) [G47.33] Q: Indications: A: Obstructive sleep apnea Q: STOP-BANG conditions - Select All That Apply: A: AGE > 50 A2: high blood PRESSURE A3: SNORINGthat is loud or disruptive A4: TIREDNESS, fatigue or sleepiness during the day A5: OBSERVED sleep apnea Q: Current use of supplemental oxygen during sleep period?: A: No All Prior Sleep Studies (past 365 days) 12/25/2023 10:06 Sleep Studies HOME SLEEP APNEA TEST (HSAT) HOME SLEEP APNEA TEST (HSAT) Order Status: Ordered, Future Expires: 12/24/24 BMI Readings from Last 2 Encounters: 12/25/23 : 28.22 kg/m 12/21/23 : 28.74 kg/m PAST MEDICAL HISTORY Diagnosis Date Acute gastritis without mention of hemorrhage Allergic rhinitis Anaphylaxis Anemia Back pain Benign essential tremor Bipolar I disorder, most recent episode (or current) unspecified sectrum Bone mass Candidiasis, intertrigo Chronic kidney disease Contraceptive management Depression Diabetes ([facility]) Diarrhea DVT, lower extremity ([facility]) 08/2014 Right leg (6) Esophagitis ESRD (end stage renal disease) ([facility]) 07/03/2022 Facial fracture due to fall ([facility]) ([facility]) Fatigue Fibromyalgia Fracture Fracture of shaft of fibula GERD (gastroesophageal reflux disease) HLD (hyperlipidemia) on tricor Hyperlipidemia Hypertension Hypomagnesemia Hypopotassemia IBS (irritable bowel syndrome) Insomnia Intertrigo Knee pain Morbid obesity (HCC) 03/11/2011 Myalgia Nausea Neck pain Neuropathy Nocturnal leg cramps Non-cardiac chest pain Obesity CASSIE (obstructive sleep apnea) 07/08/2011 Other polyp of sinus Other specified anemias Personal history of unspecified urinary disorder PMH - PAST MEDICAL HISTORY OF left knee surgery x3 Pulmonary nodules Pyelonephritis, acute Restless leg Ruptured appendicitis S/P gastric bypass Snoring Type 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, not stated as uncontrolled(250.50) on oral medications and Lanuts Unspecified asthma(493.90) on inhalers Unspecified essential hypertension on medical management Upper abdominal pain Urinary frequency Vitamin D deficiency The medical record was reviewed to determine if the proposed sleep study conforms to the AASM Practice Parameters for the Indications for Polysomnography and Related Procedures, or if the sleep studyis indicated for other reasons. Indications for study: CASSIE previously diagnosed: Evaluate response to PAP therapy Sleep study to be performed: Home Sleep Apnea Test (HSAT) Special instructions: None-follow laboratory protocol HX of CASSIE last study in 2013, Needs new study [facility] Staff Note: I have read the above protocol, edited as needed, and agree to the plan. Jonn Fortune III, PhD 5:03 PM, 01/04/2024 * Keiko Soriano - 12/31/2023 10:06 PM EDT December 31, 2023 An order has been received for Home Sleep Apnea Test (HSAT) from Ignacio Renae MD , a [facility] Staff. Visit prep complete. Comments :No The sleep study is scheduled for 01-05-24. Insurance: Payor: AMY / Plan: BLUE CARD PPO OOS / Product Type: PPO / Payer/Plan Subscr Sex Relation Sub. Ins. ID Effective Group Num 1. AMY HUGHES* Margareth GONZALEZ 1965 Female Self [id number] 03/02/[birth year] [id number] [id number] Keiko Soriano [facility]24 NoteHNO ID: [id number] Author: ?, ?, ? Service: ? Author Type: ? Type: Progress Notes Filed: 01/07/2024 11:45 Note Text: Nomad # [id number] , date shipped out 01-04-24 [employer] only Tracking mailout: [id number] Tracking return: [id number]11-04-2024 NoteHNO ID: [id number] Author: JONN FORTUNE III, PhD Service: ? Author Type: Physician Type: Progress Notes Filed: 01/07/2024 11:45 Note Text: January 04, 2024 Standing PSG Orders signed in the last 90 days None Future PSG Orders signed in the last 90 days Ordered Auth. provider HOME SLEEP APNEA TEST (HSAT) [[id number]] 12/25/23 Ignacio Cheatham MD Assoc. diagnoses: CASSIE (obstructive sleep apnea) [G47.33] Q: Indications: A: Obstructive sleep apnea Q: STOP-BANG conditions - Select All That Apply: A: AGE > 50 A2: high blood PRESSURE A3: SNORING that is loud or disruptive A4: TIREDNESS, fatigue or sleepiness during the day A5: OBSERVED sleep apnea Q: Current use of supplemental oxygen during sleep period?: A: No All Prior Sleep Studies (past 365 days) 12/25/2023 10:06 Sleep Studies HOME SLEEP APNEA TEST (HSAT) HOME SLEEP APNEA TEST (HSAT) Order Status: Ordered, Future Expires: 12/24/24 BMI Readings from Last 2 Encounters: 12/25/23 : 28.22 kg/m? 12/21/23 : 28.74 kg/m? PAST MEDICAL HISTORY Diagnosis Date Acute gastritis without mention of hemorrhage Allergic rhinitis Anaphylaxis Anemia Back pain Benign essential tremor Bipolar I disorder, most recent episode (or current) unspecified sectrum Bone mass Candidiasis, intertrigo Chronic kidney disease Contraceptive management Depression Diabetes (HCC) Diarrhea DVT, lower extremity ([facility]) 08/2014 Right leg (6) Esophagitis ESRD (end stage renal disease) ([facility]) 07/03/2022 Facial fracture due to fall ([facility]) ([facility]) Fatigue Fibromyalgia Fracture Fracture of shaft of fibula GERD (gastroesophageal reflux disease) HLD (hyperlipidemia) on tricor Hyperlipidemia Hypertension Hypomagnesemia Hypopotassemia IBS (irritable bowel syndrome) Insomnia Intertrigo Knee pain Morbid obesity (HCC) 03/11/2011 Myalgia Nausea Neck pain Neuropathy Nocturnal leg cramps Non-cardiac chest pain Obesity CASSIE (obstructive sleep apnea) 07/08/2011 Other polyp of sinus Other specified anemias Personal history of unspecified urinary disorder PMH - PAST MEDICAL HISTORY OF left knee surgery x3 Pulmonary nodules Pyelonephritis, acute Restless leg Ruptured appendicitis S/P gastric bypass Snoring Type 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, not stated as uncontrolled(250.50) on oral medications and Lanuts Unspecified asthma(493.90) on inhalers Unspecified essential hypertension on medical management Upper abdominal pain Urinary frequency Vitamin D deficiency The medical record was reviewed to determine if the proposed sleep study conforms to the AASM Practice Parameters for the Indications for Polysomnography and Related Procedures, or if the sleep study is indicated for other reasons. Indications for study: CASSIE previously diagnosed: Evaluate response to PAP therapy Sleep study to be performed: Home Sleep Apnea Test (HSAT) Special instructions: None-follow laboratory protocol HX of CASSIE last study in 2013, Needs new study [facility] Staff Note: I have read the above protocol, edited as needed, and agree to the plan. Jonn Fortune III, PhD 5:03 PM, 01/04/2024[facility]10-31-2024 NoteHNO ID: [id number] Author: ?, ?, ? Service: ? Author Type: ? Type: Progress Notes Filed: 01/07/2024 11:45 Note Text: December 31, 2023 An order has been received for Home Sleep Apnea Test (HSAT) from Ignacio Renae MD , a [facility] Staff. Visit prep complete. Comments :No The sleep study is scheduled for 01-05-24. Insurance: Payor: ANTHEM / Plan: BLUE CARD PPO OOS / Product Type: PPO / Payer/Plan Subscr Sex Relation Sub. Ins. ID Effective Group Num 1. ANTHEM - SAUL* Margareth GONZALEZ 1965 Female Self [id number] [birth year] [id number] [id number] Keiko [facility]10-25-2024 NoteHNO ID: [id number] Author: IGNACIO CHEATHAM MD Service: ? Author Type: Physician Type: Progress Notes Filed: 12/25/2023 12:49 Note Text: Patient presents with: Follow Up HPI: Patient presents today for office visit for follow up. Wants to start aqua therapy. Will let me know when ready. Starting training for home dialysis. Overall doing well. Not using anything for sleep at this time. Used to be on autopap. Did have hypoxia noted at hs at times. Has not needed in a while. Has known apnea and has probable snoring. Is fatigued. Diabetes: Sugars have been up some. During move her family lost some Trulicity waiting on next available fill. Since has Medicaid unable to use coupon/copay card. Wants to change to [employer] in [facility]. Has [employer] forms to complete for disability. Has not worked since her leg was first broken. Bp is good. No chest pain No shortness of breath. No edema. Using electric scooter to ambulate at times. Did have a fall. Went to er after hitting her face. Had ct of head etc. Doing well. Emotionally is doing well. A1c and lipid are ordered. Note was copied and pasted, without alteration from Tresa's last note: Pt presents today for prescription renewal. Since last visit, she has had leg surgery. She has been home for about two months. Needs refills. 01/19/23 -- tib fib. Pathological fx. Had ORIF. Somewhere around April or May, - stephen broke. In May, -- [place]. Had to have two more surgeries. She then went to [place]. Then she went 12 weeks, no weight bearing. Got out of alf 10/01. Refers that she was put on a ventilator at night. Had a sleep study. Equipment via [employer]. Hx of CASSIE. Not following with sleep med. No records available -- will try to obtain. Refers that she has an infection in her mouth or ear. Hurts all the time. Rinses with salt water. Aware that she needs dental work. Awaiting medicaid. She is on both sertraline and Cymbalta. She reports that they started on the Cymbalta for her chronic pain. Questions if this can be adjusted. Feels that the Cymbalta is more effective. MEDICATIONS: Current Outpatient Medications Medication Sig hydrOXYzine HCl (ATARAX) 50 mg tablet Take 1 tablet by mouth every 6 hours as needed for itching/rash. ondansetron orally disintegrating (ZOFRAN ODT) 4 mg disintegrating tablet Take 1 tablet by mouth every 8 hours as needed for nausea/vomiting. NIFEdipine ER (PROCARDIA XL) 30 mg 24 hr tablet Take 1 tablet by mouth every afternoon. sevelamer carbonate (RENVELA) 800 mg tablet Take 1 tablet by mouth three times a day with meals. Ordered by dialysis glipiZIDE (GLUCOTROL XL) 5 mg 24 hr tablet Take 10 mg by mouth. Per endocrinology DULoxetine (CYMBALTA) 30 mg capsule Take 1 capsule by mouth once daily. amitriptyline (ELAVIL) 100 mg tablet Take 1 tablet by mouth daily at bedtime. atorvastatin (LIPITOR) 40 mg tablet Take 1 tablet by mouth daily at bedtime. For cholesterol. omeprazole (PRILOSEC) 20 mg capsule Take 1 capsule by mouth once daily. sertraline (ZOLOFT) 50 mg tablet Take 1 tablet by mouth once daily. TRULICITY 1.5 mg/0.5 mL pen injector INJECT 1.5 MG UNDER THE SKIN ONCE A WEEK acetaminophen (TYLENOL) 500 mg tablet Take 1,000 mg by mouth every 12 hours. calcitriol (ROCALTROL) 0.25 mcg capsule Take 0.25 mcg by mouth once daily. Per diaylsis melatonin 5 mg tablet Take 5 mg by mouth. As needed. flash glucose scanning reader (SimpleReachSTYLE FESTUS 2 READER) Use to check glucose 3 times daily and continuously. 1 per year. flash glucose sensor (FREESTYLE FESTUS 2 SENSOR) kit Use to check glucose 3 times daily and continuously. Change every 14 days. 6 per 90 day supply. cholecalciferol (VITAMIN D3) 5,000 unit tab Take 5,000 Units by mouth twice daily. aspirin, enteric coated (ADULT LOW DOSE ASPIRIN) 81 mg EC tablet Take 1 tablet by mouth once daily. (Patient taking differently: Take 81 mg by mouth every morning.) Wsfccmmk-Ej-Xdm-Fe-FA ( VITAMIN) ORAL Tab Take 1 tablet by mouth once daily. No current facility-administered medications for this visit. ALLERGIES: ALLERGIES Allergen Reactions Vicodin [Hydrocodon* Vomiting Balsam 115 Balsam [place] Unknown Barium Sulfate Unknown Benadryl Allergy De* Itching Benadryl [Diphenhyd* Rash, Itching Codeine Vomiting, Other: See Comments Lisinopril Contraindication-Medical Surgical Acute renal failure Mold Nsaids (Non-Steroid* Other: See Comments Unable to take nsaids after having gastric bypass. Penicillins Anaphylaxis Seasonal Allergies Other: See Comments Nose runs, sneezing... Tetracycline Rash Vanilla Extract Vanilla Extract Fla* Unknown PAST MEDICAL HISTORY Diagnosis Date Acute gastritis without mention of hemorrhage Allergic rhinitis Anaphylaxis Anemia Back pain Benign essential tremor Bipolar I disorder, mo (more content not included)...[facility] 12-25-2023 History of Present illness Narrative* Ignacio Cheatham MD - 12/25/2023 9:39 AM EDT Patient presents with: Follow Up HPI: Patient presents today for office visit for follow up. Wants to start aqua therapy. Will let me know when ready. Starting training for home dialysis. Overall doing well. Not using anything for sleep at this time. Used to be on autopap. Did have hypoxia noted at hs at times. Has not needed in a while. Has known apnea and has probable snoring. Is fatigued. Diabetes: Sugars have been up some. During move her family lost some Trulicity waiting on next available fill. Since has Medicaid unable to use coupon/copay card. Wants to change to [employer] in town. Has [employer] forms to complete for disability. Has not worked since her leg was first broken. Bp is good. No chest pain No shortness of breath. No edema. Using electric scooter to ambulate at times. Did have a fall. Went to er after hitting her face. Had ct of head etc. Doing well. Emotionally is doing well. A1c and lipid are ordered. Note was copied and pasted, without alteration from Tresa's last note: Pt presents today for prescription renewal. Since last visit, she has had leg surgery. She has been home for about two months. Needs refills. 01/19/23 -- tib fib. Pathological fx. Had ORIF. Somewhere around April or May, - stephen broke. In May, -- [place]. Had to have two more surgeries. She then went to [place]. Then she went 12 weeks, no weight bearing. Got out of alf 10/01. Refers that she was put on a ventilator at night. Had a sleep study. Equipment via [employer]. Hx of CASSIE. Not following with sleep med. No records available -- will try to obtain. Refers that she has an infection in her mouth or ear. Hurts all the time. Rinses with salt water. Aware that she needs dental work. Awaiting medicaid. She is on both sertraline and Cymbalta. She reports that they started on the Cymbalta for her chronic pain. Questions if this can be adjusted. Feels that the Cymbalta is more effective. MEDICATIONS: Current Outpatient Medications Medication Sig hydrOXYzine HCl (ATARAX) 50 mg tablet Take 1 tablet by mouth every 6 hours as needed for itching/rash. ondansetron orally disintegrating (ZOFRAN ODT) 4 mg disintegrating tablet Take 1 tablet by mouth every 8 hours as needed for nausea/vomiting. NIFEdipine ER (PROCARDIA XL) 30 mg 24 hr tablet Take 1 tablet by mouth every afternoon. sevelamer carbonate (RENVELA) 800 mg tablet Take 1 tablet by mouth three times a day with meals. Ordered by dialysis glipiZIDE (GLUCOTROL XL) 5 mg 24 hr tablet Take 10 mg by mouth. Per endocrinology DULoxetine (CYMBALTA) 30 mg capsule Take 1 capsule by mouth once daily. amitriptyline (ELAVIL) 100 mg tablet Take 1 tablet by mouth daily at bedtime. atorvastatin (LIPITOR) 40 mg tablet Take 1 tablet by mouth daily at bedtime. For cholesterol. omeprazole (PRILOSEC) 20 mg capsule Take 1 capsule by mouth once daily. sertraline (ZOLOFT) 50 mg tablet Take 1 tablet by mouth once daily. TRULICITY 1.5 mg/0.5 mL pen injector INJECT 1.5 MG UNDER THE SKIN ONCE A WEEK acetaminophen (TYLENOL) 500 mg tablet Take 1,000 mg by mouth every 12 hours. calcitriol (ROCALTROL) 0.25 mcg capsule Take 0.25 mcg by mouth once daily. Per diaylsis melatonin 5 mg tablet Take 5 mg by mouth. As needed. flash glucose scanning reader (SimpleReachSTYLE FESTUS 2 READER) Use to check glucose 3 times daily and continuously. 1 per year. flash glucose sensor (FREESTYLE FESTUS 2 SENSOR) kit Use to check glucose 3 times daily and continuously. Change every 14 days. 6 per 90 day supply. cholecalciferol (VITAMIN D3) 5,000 unit tab Take 5,000 Units by mouth twice daily. aspirin, enteric coated (ADULT LOW DOSE ASPIRIN) 81 mg EC tablet Take 1 tablet by mouth once daily.(Patient taking differently: Take 81 mg by mouth every morning.) Vpiihdlo-Xm-Zvt-Fe-FA ( VITAMIN) ORAL Tab Take 1 tablet by mouth once daily. No current facility-administered medications for this visit. ALLERGIES: ALLERGIES Allergen Reactions Vicodin [Hydrocodon* Vomiting Balsam 115 Balsam [place] Unknown Barium Sulfate Unknown Benadryl Allergy De* Itching Benadryl [Diphenhyd* Rash, Itching Codeine Vomiting, Other: See Comments Lisinopril Contraindication-Medical Surgical Acute renal failure Mold Nsaids (Non-Steroid* Other: See Comments Unable to take nsaids after having gastric bypass. Penicillins Anaphylaxis Seasonal Allergies Other: See Comments Nose runs, sneezing... Tetracycline Rash Vanilla Extract Vanilla Extract Fla* Unknown PAST MEDICAL HISTORY Diagnosis Date Acute gastritis without mention of hemorrhage Allergic rhinitis Anaphylaxis Anemia Back pain Benign essential tremor Bipolar I disorder, most recent episode (or current) unspecified sectrum Bone mass Candidiasis, intertrigo Chronic kidney disease Contraceptive management Depression Diabetes ([facility]) Diarrhea DVT, lower extremity ([facility]) 08/2014 Right leg (6) Esophagitis ESRD (end stage renal disease) ([facility]) 07/03/2022 Facial fracture due to fall ([facility]) ([facility]) Fatigue Fibromyalgia Fracture Fracture of shaft of fibula GERD (gastroesophageal reflux disease) HLD (hyperlipidemia) on tricor Hyperlipidemia Hypertension Hypomagnesemia Hypopotassemia IBS (irritable bowel syndrome) Insomnia Intertrigo Knee pain Morbid obesity ([facility]) 03/11/2011 Myalgia Nausea Neck pain Neuropathy Nocturnal leg cramps Non-cardiac chest pain Obesity CASSIE (obstructive sleep apnea) 07/08/2011 Other polyp of sinus Other specified anemias Personal history of unspecified urinary disorder PMH - PAST MEDICAL HISTORY OF left knee surgery x3 Pulmonary nodules Pyelonephritis, acute Restless leg Ruptured appendicitis S/P gastric bypass Snoring Type 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, not stated as uncontrolled(250.50) on oral medications and Lanuts Unspecified asthma(493.90) on inhalers Unspecified essential hypertension on medical management Upper abdominal pain Urinary frequency Vitamin D deficiency PAST SURGICAL HISTORY Procedure Laterality Date CHOLECYSTECTOMY 04/02/2011 COLONOSCOPY W/BIOPSY SINGLE/MULTIPLE 12/16/2007 DILATION & CURETTAGE DX&/THER NONOBSTETRIC Dilation & curettage EGD TRANSORAL BIOPSY SINGLE/MULTIPLE 12/16/2007 ESOPHAGOGASTRODUODENOSCOPY TRANSORAL DIAGNOSTIC age 14 EGD LAPAROSCOPIC APPENDECTOMY 05/16/2011 MIDLINE INSERTION/CONSULT 07/29/2012 Lap Paul-en-Y gastric bypass PAST SURGICAL HISTORY OF age 14 left knee surgery, for dislocation PAST SURGICAL HISTORY OF age 5 warts removed PAST SURGICAL HISTORY OF 03/02/2007 laser surgery to both eyes for diabetic retinopathy PAST SURGICAL HISTORY OF 04/26/2008 Bilateral eye surgery- vitrectomy PAST SURGICAL HISTORY OF 06/30/2008 Left eye air fluid exchange PAST SURGICAL HISTORY OF 04/09, 07/07 retinal vitrectomies PAST SURGICAL HISTORY OF Left 07/24/2022 Left forearm AVG with [address] Valenzuela STRESS TEST 200p, 2014 Normal results TUBAL LIGATION HX ablation at the same time FAMILY HISTORY Problem Relation Age of Onset Thyroid Father Blindness Mother Diabetic retinopathy Diabetes Mother from renal disease Coronary Artery Disease Mother other (Diabetic Retinaopathy) Mother Cancer Mother uterine Stroke Mother Kidney Disease Mother Thyroid Sister skin cancer Kidney Disease Sister Diabetes Sister Diabetes Sister Coronary Artery Disease Brother Diabetes Brother Coronary Artery Disease Brother Colon Cancer Other none Breast Cancer Other none Social History Tobacco Use Smoking status: Former Current packs/day: 0.00 Average packs/day: 2.0 packs/day for 6.0 years (12.0 ttl pk-yrs) Types: Cigarettes Start date: 08/01/1983 Quit date: 07/31/1989 Years since quittin.4 Smokeless tobacco: Never Tobacco comments: Quit at age 24 Vaping Use Vaping status: Never Used Substance Use Topics Alcohol use: Not Currently Comment: rare Drug use: No Comment: Tried marijuana once - never used it again. Reviewed current medications, allergies, past medical history, surgical history, family history andsocial history today. REVIEW OF SYSTEMS All other reviewed and negative other than HPI. HEALTH MAINTENANCE: Reviewed health maintenance issues today and recommended the following in detail. Depression Screening Never done Anxiety Screening Never done BP Controlled (<130/80) Never done Hepatitis A Vaccine(1 of 2 - Risk 2-dose series) Never done Shingrix Vaccine(1 of 2) Never done Mammogram Screening due on 04/10/2023 HbA1C due on 07/22/2023 LDL Cholesterol due on 08/27/2023 VITALS: BP 118/58 Pulse 113 Wt 84.2 kg (185 lb 9.6 oz) LMP 09/20/2014 SpO2 99% BMI 28.22 kg/m Last 4 Encounter Wt Readings: Date: Wt: 12/21/2023 85.7 kg (189 lb) 12/11/2023 85.9 kg (189 lb 6 oz) 09/14/2023 88 kg (194 lb) 08/17/2023 88 kg (194 lb) PHYSICAL EXAMINATION: General appearance: Well appearing, alert, in no acute distress, well-hydrated, well nourished. Skin: Skin color, texture, turgor normal, no suspicious rashes or lesions Head: Normocephalic, no masses, lesions, tenderness or abnormalities Lungs: Lungs clear to auscultation. No wheezing, rhonchi, rales Heart: RRR without murmur, gallop, or rubs. No ectopy Abdomen: Normal abdominal exam, Abdomen soft, non-tender. Bowel sounds normal. No masses, organomegaly Extremities: No deformities, edema, skin discoloration, clubbing or cyanosis. Good capillary refill. , multiple scars on right leg ASSESSMENT/PLAN: 1. Type 2 diabetes, controlled, with neuropathy (HCC) - ICD9: 250.60, 357.2, ICD10: E11.40 (primarydiagnosis) - labs are ordered. Was out of her glp 1 for a while. Agrees to see endo. - CONSULT TO ENDOCRINOLOGY 2. Primary hypertension - ICD9: 401.9, ICD10: I10 - Controlled - Continue current medications 3. Mixed hyperlipidemia - ICD9: 272.2, ICD10: E78.2 - stable,. 4. CASSIE (obstructive sleep apnea) - ICD9: 327.23, ICD10: G47.33 Set up for sleep apnea - HOME SLEEP APNEA TEST (HSAT) 5. ESRD (end stage renal disease) ([facility]) - ICD9: 585.6, ICD10: N18.6 - will be switching to home dialysis. 6. Proliferative diabetic retinopathy associated with type 2 diabetes mellitus, unspecified laterality, unspecified proliferative retinopathy type ([facility]) - ICD9: 250.50, 362.02, ICD10: E11.3599 - follow with optho. 7. 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 Will let me know when ready. 8. Bipolar affective disorder, remission status unspecified ([facility]) - ICD9: 296.80, ICD10: F31.9 - continue meds. 9. Personal history of DVT (deep vein thrombosis) - ICD9: V12.51, ICD10: Z86.718 - stable. Ignacio Cheatham MD [facility] NoteHNO ID: [id number] Author: OMKAR LAZCANO LPN Service: ? Author Type: LICENSED NURSE Type: Progress Notes Filed: 12/30/2023 11:15 Note Text: Prepared injection per Dr. Carney order and handed to him. Left knee Omkar Lazcano LPN December 21, 2023 3:18 [facility]10-21-2024 History of Present illness Narrative* Omkar Lazcano LPN - 12/21/2023 3:17 PM EDT Prepared injection per Dr. Carney order and handed to him. Left knee Omkar Lazcano LPN December 21, 2023 3:18 PM * Dorene Murillo MD - 12/21/2023 3:09 PM EDTAssociated Order(s): Large Joint Arthro/Inj: L knee joint Post-Procedure Diagnose(s): Primary osteoarthritis of left knee Images from the original note were not included. ORTHOPAEDIC SURGERY OFFICE NOTE: SURGERY: 1) Removal of Deep Orthopaedic Implants and Repair of the Right Tibial Nonunion with Autograft (06/12/2023) 2) Irrigation and Debridement of the Right Medial Knee Incisional Dehiscence (07/29/2023) 3) Secondary Closure of the Right Medial Knee Surgical Wound (08/03/2023) CHIEF COMPLAINT: Routine Post-Operative Follow-Up HISTORY OF PRESENT ILLNESS: Margareth Gonzalez is a 58 year old female who presents for routine post- operative follow-up from the above listed operations (see Surgery above for full details). At today's appointment, the patient reports doing well. The patient endorses well-controlled pain to the right knee. The patient denies incisional complications to the right knee including dehiscence, drainage and excessive pain. The patient is ambulatory. The patient endorses chronic arthritic left knee pain and is requesting a left knee joint corticosteroid injection. The patient denies nausea, night-sweats, fevers and chills.The patient has no additional orthopaedic traumatic complaints at this time. Reviewed nursing note and current pain scale. PAST MEDICAL HISTORY Diagnosis Date Acute gastritis without mention of hemorrhage Allergic rhinitis Anaphylaxis Anemia Back pain Benign essential tremor Bipolar I disorder, most recent episode (or current) unspecified sectrum Bone mass Candidiasis, intertrigo Chronic kidney disease Contraceptive management Depression Diabetes ([facility]) Diarrhea DVT, lower extremity ([facility]) 08/2014 Right leg (6) Esophagitis ESRD (end stage renal disease) ([facility]) 07/03/2022 Facial fracture due to fall ([facility]) ([facility]) Fatigue Fibromyalgia Fracture Fracture of shaft of fibula GERD (gastroesophageal reflux disease) HLD (hyperlipidemia) on tricor Hyperlipidemia Hypertension Hypomagnesemia Hypopotassemia IBS (irritable bowel syndrome) Insomnia Intertrigo Knee pain Morbid obesity ([facility]) 03/11/2011 Myalgia Nausea Neck pain Neuropathy Nocturnal leg cramps Non-cardiac chest pain Obesity CASSIE (obstructive sleep apnea) 07/08/2011 Other polyp of sinus Other specified anemias Personal history of unspecified urinary disorder PMH - PAST MEDICAL HISTORY OF left knee surgery x3 Pulmonary nodules Pyelonephritis, acute Restless leg Ruptured appendicitis S/P gastric bypass Snoring Type 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, not stated as uncontrolled(250.50) on oral medications and Lanuts Unspecified asthma(493.90) on inhalers Unspecified essential hypertension on medical management Upper abdominal pain Urinary frequency Vitamin D deficiency PAST SURGICAL HISTORY Procedure Laterality Date CHOLECYSTECTOMY 04/02/2011 COLONOSCOPY W/BIOPSY SINGLE/MULTIPLE 12/16/2007 DILATION & CURETTAGE DX&/THER NONOBSTETRIC Dilation & curettage EGD TRANSORAL BIOPSY SINGLE/MULTIPLE 12/16/2007 ESOPHAGOGASTRODUODENOSCOPY TRANSORAL DIAGNOSTIC age 14 EGD LAPAROSCOPIC APPENDECTOMY 05/16/2011 MIDLINE INSERTION/CONSULT 07/29/2012 Lap Paul-en-Y gastric bypass PAST SURGICAL HISTORY OF age 14 left knee surgery, for dislocation PAST SURGICAL HISTORY OF age 5 warts removed PAST SURGICAL HISTORY OF 03/02/2007 laser surgery to both eyes for diabetic retinopathy PAST SURGICAL HISTORY OF 04/26/2008 Bilateral eye surgery- vitrectomy PAST SURGICAL HISTORY OF 06/30/2008 Left eye air fluid exchange PAST SURGICAL HISTORY OF 04/09, 07/07 retinal vitrectomies PAST SURGICAL HISTORY OF Left 07/24/2022 Left forearm AVG with [address] Valenzuela STRESS TEST 200p, 2015 Normal results TUBAL LIGATION HX ablation at the same time FAMILY HISTORY Problem Relation Age of Onset Thyroid Father Blindness Mother Diabetic retinopathy Diabetes Mother from renal disease Coronary Artery Disease Mother other (Diabetic Retinaopathy) Mother Cancer Mother uterine Stroke Mother Kidney Disease Mother Thyroid Sister skin cancer Kidney Disease Sister Diabetes Sister Diabetes Sister Coronary Artery Disease Brother Diabetes Brother Coronary Artery Disease Brother Colon Cancer Other none Breast Cancer Other none Social History Tobacco Use Smoking status: Former Current packs/day: 0.00 Average packs/day: 2.0 packs/day for 6.0 years (12.0 ttl pk-yrs) Types: Cigarettes Start date: 08/01/1983 Quit date: 07/31/1989 Years since quittin.4 Smokeless tobacco: Never Tobacco comments: Quit at age 24 Vaping Use Vaping status: Never Used Substance Use Topics Alcohol use: Not Currently Comment: rare Drug use: No Comment: Tried marijuana once - never used it again. MEDICATIONS: Current Outpatient Medications Medication Sig hydrOXYzine HCl (ATARAX) 50 mg tablet Take 1 tablet by mouth every 6 hours as needed for itching/rash. ondansetron orally disintegrating (ZOFRAN ODT) 4 mg disintegrating tablet Take 1 tablet by mouth every 8 hours as needed for nausea/vomiting. NIFEdipine ER (PROCARDIA XL) 30 mg 24 hr tablet Take 1 tablet by mouth every afternoon. sevelamer carbonate (RENVELA) 800 mg tablet Take 1 tablet by mouth three times a day with meals. Ordered by dialysis glipiZIDE (GLUCOTROL XL) 5 mg 24 hr tablet Take 10 mg by mouth. Per endocrinology DULoxetine (CYMBALTA) 30 mg capsule Take 1 capsule by mouth once daily. amitriptyline (ELAVIL) 100 mg tablet Take 1 tablet by mouth daily at bedtime. atorvastatin (LIPITOR) 40 mg tablet Take 1 tablet by mouth daily at bedtime. For cholesterol. omeprazole (PRILOSEC) 20 mg capsule Take 1 capsule by mouth once daily. sertraline (ZOLOFT) 50 mg tablet Take 1 tablet by mouth once daily. TRULICITY 1.5 mg/0.5 mL pen injector INJECT 1.5 MG UNDER THE SKIN ONCE A WEEK acetaminophen (TYLENOL) 500 mg tablet Take 1,000 mg by mouth every 12 hours. calcitriol (ROCALTROL) 0.25 mcg capsule Take 0.25 mcg by mouth once daily. Per diaylsis melatonin 5 mg tablet Take 5 mg by mouth. As needed. flash glucose scanning reader (FREESTYLE FESTUS 2 READER) Use to check glucose 3 times daily and continuously. 1 per year. flash glucose sensor (FREESTYLE FESTUS 2 SENSOR) kit Use to check glucose 3 times daily and continuously. Change every 14 days. 6 per 90 day supply. cholecalciferol (VITAMIN D3) 5,000 unit tab Take 5,000 Units by mouth twice daily. aspirin, enteric coated (ADULT LOW DOSE ASPIRIN) 81 mg EC tablet Take 1 tablet by mouth once daily.(Patient taking differently: Take 81 mg by mouth every morning.) Pbhraktm-Cq-Sbd-Fe-FA ( VITAMIN) ORAL Tab Take 1 tablet by mouth once daily. No current facility-administered medications for this visit. ALLERGIES: ALLERGIES Allergen Reactions Vicodin [Hydrocodon* Vomiting Balsam 115 Balsam [place] Unknown Barium Sulfate Unknown Benadryl Allergy De* Itching Benadryl [Diphenhyd* Rash, Itching Codeine Vomiting, Other: See Comments Lisinopril Contraindication-Medical Surgical Acute renal failure Mold Nsaids (Non-Steroid* Other: See Comments Unable to take nsaids after having gastric bypass. Penicillins Anaphylaxis Seasonal Allergies Other: See Comments Nose runs, sneezing... Tetracycline Rash Vanilla Extract Vanilla Extract Fla* Unknown PHYSICAL EXAMINATION: Resp 16 Ht 5' 8 (1.73m) Wt 189 lb (85.7kg) LMP 09/20/2014 BMI 28.74 kg/(m^2). General Appearance: No acute distress Skin: See Extremity exam below for full details Right Lower Extremity: Healed incisions to the knee. There is no albin-incisional erythema nor drainage. Compartments of the thigh and leg are soft and compressible. The patient has active knee range of motion from 0 to 120 degrees of flexion. The patient has active knee flexion, knee extension, ankle dorsiflexion, ankle plantarflexion and extensor hallucis longus motor function. Sensation intact to light touch in the sural, saphenous, superficial peroneal, deep peroneal and tibial nerve distributions. Brisk capillary refill to the digits of the foot. Left Lower Extremity: There are no open wounds nor lacerations about the left knee. Compartments ofthe thigh and leg are soft and compressible. There is crepitus palpated with passive knee range of motion. The patient has active knee flexion, knee extension, ankle dorsiflexion, ankle plantarflexion and extensor hallucis longus motor function. Sensation intact to light touch in the sural, saphenous, superficial peroneal, deep peroneal and tibial nerve distributions. Brisk capillary refill to the digits of the foot. IMAGES: Recent Results (from the past 36 hour(s)) XR KNEE LIMITED 2V AP/LAT RIGHT Narrative 2-view right knee x-rays demonstrate a healed proximal tibia nonunion with intact orthopaedic implants. 3-view left knee x-rays from 04/10/2022 demonstrate severe tri-compartment degenerative changes aboutthe left knee joint with significant joint space narrowing (medial more than lateral), subchondral sclerosis, subchondral cystic changes and osteophyte development. ASSESSMENT AND PLAN: 1. 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 Primary osteoarthritis of left knee - ICD9: 715.16, ICD10: M17.12 -2-view right knee x-rays ordered, obtained and independently interpreted (see image interpretationabove for full details) -3-view left knee x-rays independently reviewed and interpreted from 04/10/2022 (see image interpretation above for full details) -Weight-bearing as tolerated with the bilateral lower extremities with ambulation assistance devices as needed -Pain control: Acetaminophen as tolerated -Elevation of the right lower extremity for swelling reduction -Physical therapy/home exercises for continued rehabilitation -The risks, limitations and benefits of a left knee joint corticosteroid injection were discussed with the patient. The patient requested to proceed with a left knee joint corticosteroid injection (see Procedure Note below for full details). -The patient may follow-up on an as-needed basis OARRS reviewed All patient questions and concerns were answered and addressed The above reflects an independent exam and review. The patient was personally seen and examined. Part of the HPI, ROS, exam and impression may have been copied from personal previous clinical notes and remains pertinent. Current changes have been made and documented today. Other parts or data were deleted if not relevant for today. Plan as outlined. Dorene Murillo MD Orthopaedic Trauma Surgery 12/30/2023 10:32 AM Large Joint Arthro/Inj: L knee joint Informed Consent Consent Obtained: Verbal [place] Protocol A moment to CARE was completed. SIGN IN Personnel directly involved with the procedure wore the appropriate PPE. Patient/Surrogate Stated/Verified: Patient name, Date of , Relevant allergies and Intended procedure TIME OUT Intended patient and procedure match the source document(s). Relevant labs, photos, and/or imaging studies have been reviewed. Correct side/site marked and visible. Medications required for procedure verified. 12/21/2023 3:18 PM The procedure site was prepped in the usual sterile fashion. Site: L knee joint Medications: 80 mg triamcinolone acetonide 40 mg/mL Anesthetics: 5 mL lidocaine 10 mg/mL (1 %) Outcome: Tolerated well, no immediate complications Post-injection instructions were reviewed with the patient and the patient voiced understanding of these instructions. [facility]24 NoteHNO ID: [id number] Author: DORENE MURILLO MD Service: ? Author Type: Physician Type: Progress Notes Filed: 12/30/2023 11:15 Note Text: ORTHOPAEDIC SURGERY OFFICE NOTE: SURGERY: 1) Removal of Deep Orthopaedic Implants and Repair of the Right Tibial Nonunion with Autograft (06/12/2023) 2) Irrigation and Debridement of the Right Medial Knee Incisional Dehiscence (07/29/2023) 3) Secondary Closure of the Right Medial Knee Surgical Wound (08/03/2023) CHIEF COMPLAINT: Routine Post-Operative Follow-Up HISTORY OF PRESENT ILLNESS: Margareth Gonzalez is a 58 year old female who presents for routine post-operative follow-up from the above listed operations (see Surgery above for full details). At today's appointment, the patient reports doing well. The patient endorses well-controlled pain to the right knee. The patient denies incisional complications to the right knee including dehiscence, drainage and excessive pain. The patient is ambulatory. The patient endorses chronic arthritic left knee pain and is requesting a left knee joint corticosteroid injection. The patient denies nausea, night-sweats, fevers and chills. The patient has no additional orthopaedic traumatic complaints at this time. Reviewed nursing note and current pain scale. PAST MEDICAL HISTORY Diagnosis Date Acute gastritis without mention of hemorrhage Allergic rhinitis Anaphylaxis Anemia Back pain Benign essential tremor Bipolar I disorder, most recent episode (or current) unspecified sectrum Bone mass Candidiasis, intertrigo Chronic kidney disease Contraceptive management Depression Diabetes ([facility]) Diarrhea DVT, lower extremity ([facility]) 08/2014 Right leg (6) Esophagitis ESRD (end stage renal disease) ([facility]) 07/03/2022 Facial fracture due to fall ([facility]) ([facility]) Fatigue Fibromyalgia Fracture Fracture of shaft of fibula GERD (gastroesophageal reflux disease) HLD (hyperlipidemia) on tricor Hyperlipidemia Hypertension Hypomagnesemia Hypopotassemia IBS (irritable bowel syndrome) Insomnia Intertrigo Knee pain Morbid obesity (HCC) 03/11/2011 Myalgia Nausea Neck pain Neuropathy Nocturnal leg cramps Non-cardiac chest pain Obesity CASSIE (obstructive sleep apnea) 07/08/2011 Other polyp of sinus Other specified anemias Personal history of unspecified urinary disorder PMH - PAST MEDICAL HISTORY OF left knee surgery x3 Pulmonary nodules Pyelonephritis, acute Restless leg Ruptured appendicitis S/P gastric bypass Snoring Type 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, not stated as uncontrolled(250.50) on oral medications and Lanuts Unspecified asthma(493.90) on inhalers Unspecified essential hypertension on medical management Upper abdominal pain Urinary frequency Vitamin D deficiency PAST SURGICAL HISTORY Procedure Laterality Date CHOLECYSTECTOMY 04/02/2011 COLONOSCOPY W/BIOPSY SINGLE/MULTIPLE 12/16/2007 DILATION AND CURETTAGE DXAND/THER NONOBSTETRIC Dilation AND curettage EGD TRANSORAL BIOPSY SINGLE/MULTIPLE 12/16/2007 ESOPHAGOGASTRODUODENOSCOPY TRANSORAL DIAGNOSTIC age 14 EGD LAPAROSCOPIC APPENDECTOMY 05/16/2011 MIDLINE INSERTION/CONSULT 07/29/2012 Lap Paul-en-Y gastric bypass PAST SURGICAL HISTORY OF age 14 left knee surgery, for dislocation PAST SURGICAL HISTORY OF age 5 warts removed PAST SURGICAL HISTORY OF 03/02/2007 laser surgery to both eyes for diabetic retinopathy PAST SURGICAL HISTORY OF 04/26/2008 Bilateral eye surgery- vitrectomy PAST SURGICAL HISTORY OF 06/30/2008 Left eye air fluid exchange PAST SURGICAL HISTORY OF 04/09, 07/07 retinal vitrectomies PAST SURGICAL HISTORY OF Left 07/24/2022 Left forearm AVG with [address] Valenzuela STRESS TEST 200p, 2014 Normal results TUBAL LIGATION HX ablation at the same time FAMILY HISTORY Problem Relation Age of Onset Thyroid Father Blindness Mother Diabetic retinopathy Diabetes Mother from renal disease Coronary Artery Disease Mother other (Diabetic Retinaopathy) Mother Cancer Mother uterine Stroke Mother Kidney Disease Mother Thyroid Sister skin cancer Kidney Disease Sister Diabetes Sister Diabetes Sister Coronary Artery Disease Brother Diabetes Brother Coronary Artery Disease Brother Colon Cancer Other none Breast Cancer Other none Social History Tobacco Use Smoking status: Former Current packs/day: 0.00 Average packs/day: 2.0 packs/day for 6.0 years (12.0 ttl pk-yrs) Types: Cigarettes Start date: 08/01/1983 Quit date: 07/31/1989 Years since quittin.4 Smokeless tobacco: Never Tobacco comments: Quit at age 24 Vaping Use Vaping status: Never Used Substance Use Topics Alcohol use: Not Currently Comment: rare Drug use: No Comment: Tried marijuana once - never used it again. MEDICATIONS: Current Outpatient Medications Medication Sig hydrOXYzine HCl ( (more content not included)...[facility] 12-11-2023 Instructions* Patient Instructions* Tresa Marcum APRN.BENEFITS ADMINISTRATOR - 12/11/2023 11:57 AM EDT Start the clindamycin twice daily. Schedule w/ Dr. Jackson. Increase the cymbalta to 30 mg daily. Take 1/2 tab of the sertraline (25 mg) daily X 1 week, then stop. documented in this [facility]10-[facility]24 NoteHNO ID: [id number] Author: TRESA MARCUM APRN.BENEFITS ADMINISTRATOR Service: ? Author Type: Nurse Practitioner Type: Progress Notes Filed: 12/11/2023 17:24 Note Text: This is a 58 year old female who presents today with: Patient presents with: Hospital F/U skilled care follow up HISTORY OF PRESENT ILLNESS: Margareth Gonzalez is a 58 year old female. Patient presents with: Hospital F/U skilled care follow up Pt presents today for prescription renewal. Since last visit, she has had leg surgery. She has been home for about two months. Needs refills. 01/19/23 -- tib fib. Pathological fx. Had ORIF. Somewhere around April or May, - stephen broke. In May, -- had repair. [place] Then it go infected. Had to have two more surgeries. She then went to [place]. Then she went 12 weeks, no weight bearing. Got out of alf 10/01. Refers that she was put on a ventilator at night. Had a sleep study. Equipment via [employer]. Hx of CASSIE. Not following with sleep med. No records available -- will try to obtain. Refers that she has an infection in her mouth or ear. Hurts all the time. Rinses with salt water. Aware that she needs dental work. Awaiting medicaid. She is on both sertraline and Cymbalta. She reports that they started on the Cymbalta for her chronic pain. Questions if this can be adjusted. Feels that the Cymbalta is more effective. PAST MEDICAL HISTORY: PAST MEDICAL HISTORY Diagnosis Date Acute gastritis without mention of hemorrhage Allergic rhinitis Anaphylaxis Anemia Back pain Benign essential tremor Bipolar I disorder, most recent episode (or current) unspecified sectrum Bone mass Candidiasis, intertrigo Chronic kidney disease Contraceptive management Depression Diabetes (HCC) Diarrhea DVT, lower extremity (HCC) 08/2014 Right leg (6) Esophagitis ESRD (end stage renal disease) ([facility]) 07/03/2022 Facial fracture due to fall ([facility]) ([facility]) Fatigue Fibromyalgia Fracture Fracture of shaft of fibula GERD (gastroesophageal reflux disease) HLD (hyperlipidemia) on tricor Hyperlipidemia Hypertension Hypomagnesemia Hypopotassemia IBS (irritable bowel syndrome) Insomnia Intertrigo Knee pain Morbid obesity ([facility]) 03/11/2011 Myalgia Nausea Neck pain Neuropathy Nocturnal leg cramps Non-cardiac chest pain Obesity CASSIE (obstructive sleep apnea) 07/08/2011 Other polyp of sinus Other specified anemias Personal history of unspecified urinary disorder PMH - PAST MEDICAL HISTORY OF left knee surgery x3 Pulmonary nodules Pyelonephritis, acute Restless leg Ruptured appendicitis S/P gastric bypass Snoring Type 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, not stated as uncontrolled(250.50) on oral medications and Lanuts Unspecified asthma(493.90) on inhalers Unspecified essential hypertension on medical management Upper abdominal pain Urinary frequency Vitamin D deficiency PAST SURGICAL HISTORY Procedure Laterality Date CHOLECYSTECTOMY 04/02/2011 COLONOSCOPY W/BIOPSY SINGLE/MULTIPLE 12/16/2007 DILATION AND CURETTAGE DXAND/THER NONOBSTETRIC Dilation AND curettage EGD TRANSORAL BIOPSY SINGLE/MULTIPLE 12/16/2007 ESOPHAGOGASTRODUODENOSCOPY TRANSORAL DIAGNOSTIC age 14 EGD LAPAROSCOPIC APPENDECTOMY 05/16/2011 MIDLINE INSERTION/CONSULT 07/29/2012 Lap Paul-en-Y gastric bypass PAST SURGICAL HISTORY OF age 14 left knee surgery, for dislocation PAST SURGICAL HISTORY OF age 5 warts removed PAST SURGICAL HISTORY OF 03/02/2007 laser surgery to both eyes for diabetic retinopathy PAST SURGICAL HISTORY OF 04/26/2008 Bilateral eye surgery- vitrectomy PAST SURGICAL HISTORY OF 06/30/2008 Left eye air fluid exchange PAST SURGICAL HISTORY OF 04/09, 07/07 retinal vitrectomies PAST SURGICAL HISTORY OF Left 07/24/2022 Left forearm AVG with [address] Valenzuela STRESS TEST 200p, 2014 Normal results TUBAL LIGATION HX ablation at the same time ALLERGIES Vicodin [Hydrocodone-Acetaminophen], Balsam 115, Balsam [place], Barium Sulfate, Benadryl Allergy Decongestant, Benadryl [Diphenhydramine Hcl], Codeine, Lisinopril, Mold, Nsaids (Non-Steroidal Anti-Inflammatory Drug), Penicillins, Seasonal Allergies, Tetracycline, Vanilla Extract, and Vanilla Extract Flavor MEDICATIONS Current Outpatient Medications Medication Sig DULoxetine (CYMBALTA) 20 mg capsule Take 20 mg by mouth once daily. senna (SENOKOT) 8.6 mg tab Take 1 tablet by mouth two times a day. (Patient taking differently: Take 8.6 mg by mouth once daily as needed for constipation.) sevelamer carbonate (RENVELA) 800 mg tablet Take 800 mg by mouth three times a day with meals. hydrOXYzine HCl (ATARAX) 50 mg tablet Take 1 tablet by mouth every 6 hours as needed for itching/rash. ondansetron orally disintegrating (ZOFRAN ODT) 4 mg disintegrating tablet Take 1 tablet by mouth every 8 hour (more content not included)...[facility]10-11-2024 History of Present illness Narrative* Tresa Marcum APRN.BENEFITS ADMINISTRATOR - 12/11/2023 11:30 AM EDT This is a 58 year old female who presents today with: Patient presents with: [facility] F/U skilled care follow up HISTORY OF PRESENT ILLNESS: Margareth Gonzalez is a 58 year old female. Patient presents with: [facility] F/U skilled care follow up Pt presents today for prescription renewal. Since last visit, she has had leg surgery. She has been home for about two months. Needs refills. 01/19/23 -- tib fib. Pathological fx. Had ORIF. Somewhere around April or May, - stephen broke. In May, -- had repair. Went to the [place]. Then it go infected. Had to have two more surgeries. She then went to [place]. Then she went 12 weeks, no weight bearing. Got out of alf 10/01. Refers that she was put on a ventilator at night. Had a sleep study. Equipment via [employer]. Hx of CASSIE. Not following with sleep med. No records available -- will try to obtain. Refers that she has an infection in her mouth or ear. Hurts all the time. Rinses with salt water. Aware that she needs dental work. Awaiting medicaid. She is on both sertraline and Cymbalta. She reports that they started on the Cymbalta for her chronic pain. Questions if this can be adjusted. Feels that the Cymbalta is more effective. PAST MEDICAL HISTORY: PAST MEDICAL HISTORY Diagnosis Date Acute gastritis without mention of hemorrhage Allergic rhinitis Anaphylaxis Anemia Back pain Benign essential tremor Bipolar I disorder, most recent episode (or current) unspecified sectrum Bone mass Candidiasis, intertrigo Chronic kidney disease Contraceptive management Depression Diabetes ([facility]) Diarrhea DVT, lower extremity ([facility]) 08/2014 Right leg (6) Esophagitis ESRD (end stage renal disease) ([facility]) 07/03/2022 Facial fracture due to fall ([facility]) ([facility]) Fatigue Fibromyalgia Fracture Fracture of shaft of fibula GERD (gastroesophageal reflux disease) HLD (hyperlipidemia) on tricor Hyperlipidemia Hypertension Hypomagnesemia Hypopotassemia IBS (irritable bowel syndrome) Insomnia Intertrigo Knee pain Morbid obesity ([facility]) 03/11/2011 Myalgia Nausea Neck pain Neuropathy Nocturnal leg cramps Non-cardiac chest pain Obesity CASSIE (obstructive sleep apnea) 07/08/2011 Other polyp of sinus Other specified anemias Personal history of unspecified urinary disorder PMH - PAST MEDICAL HISTORY OF left knee surgery x3 Pulmonary nodules Pyelonephritis, acute Restless leg Ruptured appendicitis S/P gastric bypass Snoring Type 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, not stated as uncontrolled(250.50) on oral medications and Lanuts Unspecified asthma(493.90) on inhalers Unspecified essential hypertension on medical management Upper abdominal pain Urinary frequency Vitamin D deficiency PAST SURGICAL HISTORY Procedure Laterality Date CHOLECYSTECTOMY 04/02/2011 COLONOSCOPY W/BIOPSY SINGLE/MULTIPLE 12/16/2007 DILATION & CURETTAGE DX&/THER NONOBSTETRIC Dilation & curettage EGD TRANSORAL BIOPSY SINGLE/MULTIPLE 12/16/2007 ESOPHAGOGASTRODUODENOSCOPY TRANSORAL DIAGNOSTIC age 14 EGD LAPAROSCOPIC APPENDECTOMY 05/16/2011 MIDLINE INSERTION/CONSULT 07/29/2012 Lap Paul-en-Y gastric bypass PAST SURGICAL HISTORY OF age 14 left knee surgery, for dislocation PAST SURGICAL HISTORY OF age 5 warts removed PAST SURGICAL HISTORY OF 03/02/2007 laser surgery to both eyes for diabetic retinopathy PAST SURGICAL HISTORY OF 04/26/2008 Bilateral eye surgery- vitrectomy PAST SURGICAL HISTORY OF 06/30/2008 Left eye air fluid exchange PAST SURGICAL HISTORY OF 04/09, 07/07 retinal vitrectomies PAST SURGICAL HISTORY OF Left 07/24/2022 Left forearm AVG with [address] Valenzuela STRESS TEST 200p, 2014 Normal results TUBAL LIGATION HX ablation at the same time ALLERGIES Vicodin [Hydrocodone-Acetaminophen], Balsam 115, Balsam [place], Barium Sulfate, Benadryl Allergy Decongestant, Benadryl [Diphenhydramine Hcl], Codeine, Lisinopril, Mold, Nsaids ([facility]dp[facility]usbm[facility]), Penicillins, Seasonal Allergies, Tetracycline, Vanilla Extract, and Vanilla Extract Flavor MEDICATIONS Current Outpatient Medications Medication Sig DULoxetine (CYMBALTA) 20 mg capsule Take 20 mg by mouth once daily. senna (SENOKOT) 8.6 mg tab Take 1 tablet by mouth two times a day. (Patient taking differently: Take 8.6 mg by mouth once daily as needed for constipation.) sevelamer carbonate (RENVELA) 800 mg tablet Take 800 mg by mouth three times a day with meals. hydrOXYzine HCl (ATARAX) 50 mg tablet Take 1 tablet by mouth every 6 hours as needed for itching/rash. ondansetron orally disintegrating (ZOFRAN ODT) 4 mg disintegrating tablet Take 1 tablet by mouth every 8 hours as needed for nausea/vomiting. sertraline (ZOLOFT) 50 mg tablet Take 1 tablet by mouth once daily. TRULICITY 1.5 mg/0.5 mL pen injector INJECT 1.5 MG UNDER THE SKIN ONCE A WEEK acetaminophen (TYLENOL) 500 mg tablet Take 1,000 mg by mouth every 12 hours. atorvastatin (LIPITOR) 40 mg tablet Take 1 tablet by mouth daily at bedtime. For cholesterol. calcitriol (ROCALTROL) 0.25 mcg capsule Take 0.25 mcg by mouth once daily. Per diaylsis melatonin 5 mg tablet Take 5 mg by mouth. As needed. omeprazole (PRILOSEC) 20 mg capsule Take 1 capsule by mouth once daily. flash glucose scanning reader ([employer]ReachSTYLE FESTUS 2 READER) Use to check glucose 3 times daily and continuously. 1 per year. flash glucose sensor (FREESTYLE FESTUS 2 SENSOR) kit Use to check glucose 3 times daily and continuously. Change every 14 days. 6 per 90 day supply. cholecalciferol (VITAMIN D3) 5,000 unit tab Take 5,000 Units by mouth twice daily. aspirin, enteric coated (ADULT LOW DOSE ASPIRIN) 81 mg EC tablet Take 1 tablet by mouth once daily.(Patient taking differently: Take 81 mg by mouth every morning.) Xmudqwmr-Tw-Zbm-Fe-FA ( VITAMIN) ORAL Tab Take 1 tablet by mouth once daily. labetalol (TRANDATE) 100 mg tablet Take 1 tablet by mouth two times a day. (Patient not taking: Reported on 12/11/2023) amitriptyline (ELAVIL) 100 mg tablet Take 1 tablet by mouth daily at bedtime. No current facility-administered medications for this visit. FAMILY HISTORY Problem Relation Age of Onset Thyroid Father Blindness Mother Diabetic retinopathy Diabetes Mother from renal disease Coronary Artery Disease Mother other (Diabetic Retinaopathy) Mother Cancer Mother uterine Stroke Mother Kidney Disease Mother Thyroid Sister skin cancer Kidney Disease Sister Diabetes Sister Diabetes Sister Coronary Artery Disease Brother Diabetes Brother Coronary Artery Disease Brother Colon Cancer Other none Breast Cancer Other none Social History Tobacco Use Smoking status: Former Current packs/day: 0.00 Average packs/day: 2.0 packs/day for 6.0 years (12.0 ttl pk-yrs) Types: Cigarettes Start date: 08/01/1983 Quit date: 07/31/1989 Years since quittin.3 Smokeless tobacco: Never Tobacco comments: Quit at age 24 Vaping Use Vaping status: Never Used Substance Use Topics Alcohol use: Not Currently Comment: rare Drug use: No Comment: Tried marijuana once - never used it again. EXAM: BP 130/72 Pulse 102 Resp 16 Wt 85.9 kg (189 lb 6 oz) LMP 09/20/2014 SpO2 98% BMI 28.79 kg/m PHYSICAL EXAM: General Appearance: Well appearing, alert, in no acute distress, well-hydrated, well nourished.. Skin: Skin color, texture, turgor normal, no suspicious rashes or lesions. Head: Normocephalic, no masses, lesions, tenderness or abnormalities. Eyes: Anicteric sclera. Pupils are equally round and reactive to light. Extraocular movements are intact. . Ears: External ears normal, canals clear. Normal TMs bilaterally. Oropharynx: poor dentition. Neck: Supple, no adenopathy Lungs: Lungs clear to auscultation. No wheezing, rhonchi, rales.. Heart: RRR without murmur, gallop, or rubs. No ectopy. Extremities: No deformities, edema, skin discoloration, clubbing or cyanosis. Good capillary refill. . Feet:Shoes and socks removed, No deformities, ulcers, calluses, normal distal pulses, and sensitiveto 10 gm monofilament (except the plantar aspect of the left foot and the toes of the right foot.) ASSESSMENT/PLAN: 1. Pathological fracture of both tibia and fibula of right lower extremity due to other disease with delayed healing, subsequent encounter - ICD9: V54.26, ICD10: M84.661G, M84.663G (primary diagnosis) Doing well. Continue per ortho. 2. Anxiety - ICD9: 300.00, ICD10: F41.9 Refill. She is on both sertraline 50 mg daily as well as duloxetine 20 mg daily. Will go ahead and increase the duloxetine to 30 mg daily. She will take sertraline 1/2 tablet (25 mg) daily x 1 week then stop. - HYDROXYZINE HCL 50 MG TABLET - ONDANSETRON 4 MG DISINTEGRATING TABLET - DULOXETINE 30 MG CAPSULE,DELAYED RELEASE Recheck in 1 month. 3. ESRD (end stage renal disease) (HCC) - ICD9: 585.6, ICD10: N18.6 She is requesting referral to Dr. Jackson. She follows with vascular regarding her AV fistula. She notes problems with the area of bleeding after dialysis. She reports that was told previously that she could see Dr. Jackson for this. - CONSULT TO VASCULAR SURGERY - COMPLETE BLOOD COUNT AND DIFFERENTIAL 4. Dental infection - ICD9: 522.4, ICD10: K04.7 Will go ahead and start clindamycin. Aware that she needs to follow-up with dentistry. - CLINDAMYCIN HCL 300 MG CAPSULE 5. Neuropathy - ICD9: 355.9, ICD10: G62.9 Refill: - AMITRIPTYLINE 100 MG TABLET 6. Mixed hyperlipidemia - ICD9: 272.2, ICD10: E78.2 - ATORVASTATIN 40 MG TABLET - LIPID PANEL BASIC 7. Encounter for immunization - ICD9: V03.89, ICD10: Z23 - PFIZER-BIONTECH COVID-19 VACCINE AGE 12+ YR ([facility]) 8. Type 2 diabetes mellitus with stage 4 chronic kidney disease, without long- term current use of insulin (HCC) - ICD9: 250.40, 585.4, ICD10: E11.22, N18.4 - HEMOGLOBIN A1C - COMPREHENSIVE METABOLIC PANEL Per nephrology. 9. Gastroesophageal reflux disease, unspecified whether esophagitis present - ICD9: 530.81, ICD10: K21.9 - MAGNESIUM 10. CASSIE (obstructive sleep apnea) - ICD9: 327.23, ICD10: G47.33 Try to get records from sleep study and supply company. Likely will need referral to sleep medicine. Discussed treatment plan and patient voices understanding. Patient's questions answered appropriately. Medications and potential side effects were discussed and patient voices understanding. Return to the office as scheduled or as needed for worsening/no improvement. Tresa Marcum APRN.BENEFITS ADMINISTRATOR documented in this [facility] Telephone encounter Note * Telephone Encounter - Clare Singh RN - 12/07/2023 1:03 PM EDT Pt called in and reports she has been home from the alf for 2 months and has been trying to get in with Dr Cheatham. I got her in with Tresa Marcum [employer] 12/11/23. Pt reports she had R knee surgery went to the [facility] and got an infection I her knee. She states she had to go back to [facility] to have subsequent surgery. Then Pt states she went to [place] after that for rehab. [facility]10-[facility] Miscellaneous Notes* Telephone Encounter - Clare Singh RN - 12/07/2023 1:03 PM EDT Pt called in and reports she has been home from the alf for 2 months and has been trying to get in with Dr Cheatham. I got her in with Tresa Marcum [employer] 12/11/23. Pt reports she had R knee surgery went to the [facility] and got an infection I her knee. She states she had to go back to [facility] to have subsequent surgery. Then Pt states she went to [place] after that for rehab. documented in this encounterFisher[facility]07-[facility]-2024 Telephone encounter Note * Telephone Encounter - Nedra Cramer - 09/22/2023 8:48 AM EDT Checking with Dr. Murillo to see if he wants to sign the attached order for aquatics therapy, or should I delete it. Nedra Cramer September 22, 2023 8:49 AM [facility]07-23-[facility] Miscellaneous Notes* Telephone Encounter - Nedra Cramer - 09/22/2023 8:48 AM EDT Checking with Dr. Murillo to see if he wants to sign the attached order for aquatics therapy, or should I delete it. Nedra Cramer September 22, 2023 8:49 AM * Telephone Encounter - Nedra Cramer - 09/18/2023 3:07 PM EDT PC to Ruthie at [facility] and relayed information. She will check and see if there would be someone available to look over her wounds daily, as Dr. Murillo stated would be necessary, to ensure incisions are ok. Nedra Cramer September 18, 2023 3:08 PM * Telephone Encounter - Nedra Cramer - 09/18/2023 2:57 PM EDT Received vm message from Ruthie with [facility]. Stated that patient desires to participate in aquatic therapy and is asking if that is ok. P# [phone], fax [phone]. Patient seen in the office on 09/13 for her right lower leg. Order prepared for Dr. Murillo's review/approval. Nedra Cramer September 18, 2023 2:58 PM documented in this encounterFisher[facility]07-19-2024 Telephone encounter Note * Telephone Encounter - Nedra Cramer - 09/18/2023 3:07 PM EDT PC to Ruthie at [facility] and relayed information. She will check and see if there would be someone available to look over her wounds daily, as Dr. Murillo stated would be necessary, to ensure incisions are ok. Nedra Cramer September 18, 2023 3:08 PM [facility] Telephone encounter Note* Telephone Encounter - Nedra Cramer - 09/18/2023 2:57 PM EDT Received vm message from Ruthie with [facility]. Stated that patient desires to participate in aquatic therapy and is asking if that is ok. P# [phone], fax [phone]. Patient seen in the office on 09/13 for her right lower leg. Order prepared for Dr. Murillo's review/approval. Nedra Cramer September 18, 2023 2:58 PM [facility]07-15-[facility]24 NoteHNO ID: [id number] Author: DORENE MURILLO MD Service: ? 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 At today's appointment, the patient reports doing well. The patient endorses well-controlled pain to the right knee. The patient denies incisional complications to the right knee including dehiscence, drainage and excessive pain. The patient has maintained non-weightbearing recommendations with the right lower extremity. The patient is recovering [place] a [place] [facility] facility and participating in physical therapy. The patient denies nausea, night-sweats, fevers and chills. The patient has no additional orthopaedic traumatic complaints at this time. Reviewed nursing note and current pain scale. PAST MEDICAL HISTORY Diagnosis Date Acute gastritis without mention of hemorrhage Allergic rhinitis Anaphylaxis Anemia Back pain Benign essential tremor Bipolar I disorder, most recent episode (or current) unspecified sectrum Bone mass Candidiasis, intertrigo Chronic kidney disease Contraceptive management Depression Diabetes ([facility]) Diarrhea DVT, lower extremity ([facility]) 08/2014 Right leg (6) Esophagitis ESRD (end stage renal disease) ([facility]) 07/03/2022 Facial fracture due to fall ([facility]) ([facility]) Fatigue Fibromyalgia Fracture Fracture of shaft of fibula GERD (gastroesophageal reflux disease) HLD (hyperlipidemia) on tricor Hyperlipidemia Hypertension Hypomagnesemia Hypopotassemia IBS (irritable bowel syndrome) Insomnia Intertrigo Knee pain Morbid obesity ([facility]) 03/11/2011 Myalgia Nausea Neck pain Neuropathy Nocturnal leg cramps Non-cardiac chest pain Obesity CASSIE (obstructive sleep apnea) 07/08/2011 Other polyp of sinus Other specified anemias Personal history of unspecified urinary disorder PMH - PAST MEDICAL HISTORY OF left knee surgery x3 Pulmonary nodules Pyelonephritis, acute Restless leg Ruptured appendicitis S/P gastric bypass Snoring Type 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, not stated as uncontrolled(250.50) on oral medications and Lanuts Unspecified asthma(493.90) on inhalers Unspecified essential hypertension on medical management Upper abdominal pain Urinary frequency Vitamin D deficiency PAST SURGICAL HISTORY Procedure Laterality Date CHOLECYSTECTOMY 04/02/2011 COLONOSCOPY W/BIOPSY SINGLE/MULTIPLE 12/16/2007 DILATION AND CURETTAGE DXAND/THER NONOBSTETRIC Dilation AND curettage EGD TRANSORAL BIOPSY SINGLE/MULTIPLE 12/16/2007 ESOPHAGOGASTRODUODENOSCOPY TRANSORAL DIAGNOSTIC age 14 EGD LAPAROSCOPIC APPENDECTOMY 05/16/2011 MIDLINE INSERTION/CONSULT 07/29/2012 Lap Paul-en-Y gastric bypass PAST SURGICAL HISTORY OF age 14 left knee surgery, for dislocation PAST SURGICAL HISTORY OF age 5 warts removed PAST SURGICAL HISTORY OF 03/02/2007 laser surgery to both eyes for diabetic retinopathy PAST SURGICAL HISTORY OF 04/26/2008 Bilateral eye surgery- vitrectomy PAST SURGICAL HISTORY OF 06/30/2008 Left eye air fluid exchange PAST SURGICAL HISTORY OF 04/09, 07/07 retinal vitrectomies PAST SURGICAL HISTORY OF Left 07/24/2022 Left forearm AVG with [address] Valenzuela STRESS TEST 200p, 2015 Normal results TUBAL LIGATION HX ablation at the same time FAMILY HISTORY Problem Relation Age of Onset Thyroid Father Blindness Mother Diabetic retinopathy Diabetes Mother from renal disease Coronary Artery Disease Mother other (Diabetic Retinaopathy) Mother Cancer Mother uterine Stroke Mother Kidney Disease Mother Thyroid Sister skin cancer Kidney Disease Sister Diabetes Sister Diabetes Sister Coronary Artery Disease Brother Diabetes Brother Coronary Artery Disease Brother Colon Cancer Other none Breast Cancer Other none Social History Tobacco Use Smoking status: Former Packs/day: 2.00 Years: 6.00 Additional pack years: 0.00 Total pack years: 12.00 Types: Cigarettes Quit date: 07/31/1989 Years since quittin.1 Smokeless tobacco: Never Tobacco comments: Quit at age 24 Vaping Use Vaping Use: Never used Substance Use Topics Alcohol use: Not Currently Comment: rare Drug use: No Comment: Tried marijuana once - never used it again. MEDICATIONS: Current Outpatient Medications Medication Sig lab (more content not included)...[facility]07-[facility]24 History of Present illness Narrative* Dorene Murillo MD - 09/14/2023 9:49 AM EDT Images from the original note were not included. ORTHOPAEDIC SURGERY OFFICE NOTE: SURGERY: 1) Removal of Deep Orthopaedic Implants and Repair of the Right Tibial Nonunion with Autograft (06/12/2023) 2) Irrigation and Debridement of the Right Medial Knee Incisional Dehiscence (07/29/2023) 3) Secondary Closure of the Right Medial Knee Surgical Wound (08/03/2023) CHIEF COMPLAINT: Routine Post-Operative Follow-Up HISTORY OF PRESENT ILLNESS: Margareth Gonzalez is a 58 year old female who presents for routine post- operative follow-up from the above listed operations (see Surgery above for full details). At today's appointment, the patient reports doing well. The patient endorses well-controlled pain to the right knee. The patient denies incisional complications to the right knee including dehiscence, drainage and excessive pain. The patient has maintained non-weightbearing recommendations with the right lower extremity. The patientis [place] [facility] [place] and participating in physical therapy. The patient denies nausea, night-sweats, fevers and chills. The patient has no additional orthopaedic traumatic complaints at this time. Reviewed nursing note and current pain scale. PAST MEDICAL HISTORY Diagnosis Date Acute gastritis without mention of hemorrhage Allergic rhinitis Anaphylaxis Anemia Back pain Benign essential tremor Bipolar I disorder, most recent episode (or current) unspecified sectrum Bone mass Candidiasis, intertrigo Chronic kidney disease Contraceptive management Depression Diabetes ([facility]) Diarrhea DVT, lower extremity ([facility]) 08/2014 Right leg (6) Esophagitis ESRD (end stage renal disease) ([facility]) 07/03/2022 Facial fracture due to fall ([facility]) ([facility]) Fatigue Fibromyalgia Fracture Fracture of shaft of fibula GERD (gastroesophageal reflux disease) HLD (hyperlipidemia) on tricor Hyperlipidemia Hypertension Hypomagnesemia Hypopotassemia IBS (irritable bowel syndrome) Insomnia Intertrigo Knee pain Morbid obesity ([facility]) 03/11/2011 Myalgia Nausea Neck pain Neuropathy Nocturnal leg cramps Non-cardiac chest pain Obesity CASSIE (obstructive sleep apnea) 07/08/2011 Other polyp of sinus Other specified anemias Personal history of unspecified urinary disorder PMH - PAST MEDICAL HISTORY OF left knee surgery x3 Pulmonary nodules Pyelonephritis, acute Restless leg Ruptured appendicitis S/P gastric bypass Snoring Type 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, not stated as uncontrolled(250.50) on oral medications and Lanuts Unspecified asthma(493.90) on inhalers Unspecified essential hypertension on medical management Upper abdominal pain Urinary frequency Vitamin D deficiency PAST SURGICAL HISTORY Procedure Laterality Date CHOLECYSTECTOMY 04/02/2011 COLONOSCOPY W/BIOPSY SINGLE/MULTIPLE 12/16/2007 DILATION & CURETTAGE DX&/THER NONOBSTETRIC Dilation & curettage EGD TRANSORAL BIOPSY SINGLE/MULTIPLE 12/16/2007 ESOPHAGOGASTRODUODENOSCOPY TRANSORAL DIAGNOSTIC age 14 EGD LAPAROSCOPIC APPENDECTOMY 05/16/2011 MIDLINE INSERTION/CONSULT 07/29/2012 Lap Paul-en-Y gastric bypass PAST SURGICAL HISTORY OF age 14 left knee surgery, for dislocation PAST SURGICAL HISTORY OF age 5 warts removed PAST SURGICAL HISTORY OF 03/02/2007 laser surgery to both eyes for diabetic retinopathy PAST SURGICAL HISTORY OF 04/26/2008 Bilateral eye surgery- vitrectomy PAST SURGICAL HISTORY OF 06/30/2008 Left eye air fluid exchange PAST SURGICAL HISTORY OF 04/09, 07/07 retinal vitrectomies PAST SURGICAL HISTORY OF Left 07/24/2022 Left forearm AVG with [address] Valenzuela STRESS TEST 200p, 2014 Normal results TUBAL LIGATION HX ablation at the same time FAMILY HISTORY Problem Relation Age of Onset Thyroid Father Blindness Mother Diabetic retinopathy Diabetes Mother from renal disease Coronary Artery Disease Mother other (Diabetic Retinaopathy) Mother Cancer Mother uterine Stroke Mother Kidney Disease Mother Thyroid Sister skin cancer Kidney Disease Sister Diabetes Sister Diabetes Sister Coronary Artery Disease Brother Diabetes Brother Coronary Artery Disease Brother Colon Cancer Other none Breast Cancer Other none Social History Tobacco Use Smoking status: Former Packs/day: 2.00 Years: 6.00 Additional pack years: 0.00 Total pack years: 12.00 Types: Cigarettes Quit date: 07/31/1989 Years since quittin.1 Smokeless tobacco: Never Tobacco comments: Quit at age 24 Vaping Use Vaping Use: Never used Substance Use Topics Alcohol use: Not Currently Comment: rare Drug use: No Comment: Tried marijuana once - never used it again. MEDICATIONS: Current Outpatient Medications Medication Sig labetalol (TRANDATE) 100 mg tablet Take 1 tablet by mouth two times a day. senna (SENOKOT) 8.6 mg tab Take 1 tablet by mouth two times a day. sevelamer carbonate (RENVELA) 800 mg tablet Take 800 mg by mouth three times a day with meals. hydrOXYzine HCl (ATARAX) 50 mg tablet Take 1 tablet by mouth every 6 hours as needed for itching/rash. ondansetron orally disintegrating (ZOFRAN ODT) 4 mg disintegrating tablet Take 1 tablet by mouth every 8 hours as needed for nausea/vomiting. sertraline (ZOLOFT) 50 mg tablet Take 1 tablet by mouth once daily. TRULICITY 1.5 mg/0.5 mL pen injector INJECT 1.5 MG UNDER THE SKIN ONCE A WEEK acetaminophen (TYLENOL) 500 mg tablet Take 1,000 mg by mouth every 12 hours. atorvastatin (LIPITOR) 40 mg tablet Take 1 tablet by mouth daily at bedtime. For cholesterol. calcitriol (ROCALTROL) 0.25 mcg capsule Take 0.25 mcg by mouth once daily. Per diaylsis melatonin 5 mg tablet Take 5 mg by mouth. As needed. omeprazole (PRILOSEC) 20 mg capsule Take 1 capsule by mouth once daily. amitriptyline (ELAVIL) 100 mg tablet Take 1 tablet by mouth daily at bedtime. flash glucose scanning reader (SimpleReachSTYLE FESTUS 2 READER) Use to check glucose 3 times daily and continuously. 1 per year. flash glucose sensor (FREESTYLE FESTUS 2 SENSOR) kit Use to check glucose 3 times daily and continuously. Change every 14 days. 6 per 90 day supply. cholecalciferol (VITAMIN D3) 5,000 unit tab Take 5,000 Units by mouth twice daily. aspirin, enteric coated (ADULT LOW DOSE ASPIRIN) 81 mg EC tablet Take 1 tablet by mouth once daily.(Patient taking differently: Take 81 mg by mouth every morning.) Givgtwud-Yj-Gpp-Fe-FA ( VITAMIN) ORAL Tab Take 1 tablet by mouth once daily. No current facility-administered medications for this visit. ALLERGIES: ALLERGIES Allergen Reactions Vicodin [Hydrocodon* Vomiting Balsam 115 Balsam Juan Unknown Barium Sulfate Unknown Benadryl Allergy De* Itching Benadryl [Diphenhyd* Rash, Itching Codeine Vomiting, Other: See Comments Lisinopril Contraindication-Medical Surgical Acute renal failure Mold Nsaids (Non-Steroid* Other: See Comments Unable to take nsaids after having gastric bypass. Penicillins Anaphylaxis Seasonal Allergies Other: See Comments Nose runs, sneezing... Tetracycline Rash Vanilla Extract Vanilla Extract Fla* Unknown PHYSICAL EXAMINATION: Resp 18 Ht 5' 8 (1.73m) Wt 194 lb (88.0kg) LMP 09/20/2014 BMI 29.50 kg/(m^2). General Appearance: No acute distress Skin: See Extremity exam below for full details Right Lower Extremity: Healed incisions to the knee. There is no albin-incisional erythema nor drainage. Compartments of the thigh and leg are soft and compressible. The patient has active ankle dorsiflexion, ankle plantarflexion and extensor hallucis longus motor function. Sensation intact to lighttouch in the sural, saphenous, superficial peroneal, deep peroneal and tibial nerve distributions. Brisk capillary refill to the digits of the foot. IMAGES: Recent Results (from the past 36 hour(s)) XR KNEE LIMITED 2V AP/LAT RIGHT Narrative 2-view right knee x-rays demonstrate interval healing of the right proximal tibia nonunion with intact orthopaedic implants. ASSESSMENT AND PLAN: 1. 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 - ICD9: 733.82, ICD10: S82.291K -2-view right knee x-rays ordered, obtained and independently interpreted (see image interpretationabove for full details) -Weight-bearing as tolerated with the right lower extremity with ambulation assistance devices; no right knee range of motion restrictions -Wound care at the patient's [place] [facility] facility for incisional monitoring -Pain control per [place] [facility] protocol -Elevation of the right lower extremity for swelling reduction -Physical therapy for gait training and general reconditioning -The patient will follow-up in 3 months or sooner if needed OARRS reviewed All patient questions and concerns were answered and addressed The above reflects an independent exam and review. The patient was personally seen and examined. Part of the HPI, ROS, exam and impression may have been copied from personal previous clinical notes and remains pertinent. Current changes have been made and documented today. Other parts or data were deleted if not relevant for today. Plan as outlined. Dorene Murillo MD Orthopaedic Trauma Surgery 09/18/2023 1:48 PM [facility] NoteHNO ID: [id number] Author: DORENE MURILLO MD Service: ? Author Type: Physician Type: Progress Notes Filed: 08/18/2023 13:44 Note Text: ORTHOPAEDIC SURGERY OFFICE NOTE: SURGERY: 1) Removal of Deep Orthopaedic Implants and Repair of the Right Tibial Nonunion with Autograft (06/12/2023) 2) Irrigation and Debridement of the Right Medial Knee Incisional Dehiscence (07/29/2023) 3) Secondary Closure of the Right Medial Knee Surgical Wound (08/03/2023) CHIEF COMPLAINT: Routine Post-Operative Follow-Up HISTORY OF PRESENT ILLNESS: Margareth Gonzalez is a 58 year old female who presents for routine post-operative follow-up from the above listed operations (see Surgery above for full details). At today's appointment, the patient reports doing well. The patient endorses controlled pain to the right knee. The patient denies right knee incisional complications including excessive pain, swelling, erythema and drainage. The patient has maintained non-weightbearing recommendations with the right lower extremity. The patient is recovering at a [place] [facility] and participating in physical therapy. The patient denies nausea, night-sweats, fevers and chills. The patient has no additional orthopaedic traumatic complaints at this time. Reviewed nursing note and current pain scale. PAST MEDICAL HISTORY Diagnosis Date Acute gastritis without mention of hemorrhage Allergic rhinitis Anaphylaxis Anemia Back pain Benign essential tremor Bipolar I disorder, most recent episode (or current) unspecified sectrum Bone mass Candidiasis, intertrigo Chronic kidney disease Contraceptive management Depression Diabetes ([facility]) Diarrhea DVT, lower extremity ([facility]) 08/2014 Right leg (6) Esophagitis ESRD (end stage renal disease) ([facility]) 07/03/2022 Facial fracture due to fall ([facility]) ([facility]) Fatigue Fibromyalgia Fracture Fracture of shaft of fibula GERD (gastroesophageal reflux disease) HLD (hyperlipidemia) on tricor Hyperlipidemia Hypertension Hypomagnesemia Hypopotassemia IBS (irritable bowel syndrome) Insomnia Intertrigo Knee pain Morbid obesity ([facility]) 03/11/2011 Myalgia Nausea Neck pain Neuropathy Nocturnal leg cramps Non-cardiac chest pain Obesity CASSIE (obstructive sleep apnea) 07/08/2011 Other polyp of sinus Other specified anemias Personal history of unspecified urinary disorder PMH - PAST MEDICAL HISTORY OF left knee surgery x3 Pulmonary nodules Pyelonephritis, acute Restless leg Ruptured appendicitis S/P gastric bypass Snoring Type 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, not stated as uncontrolled(250.50) on oral medications and Lanuts Unspecified asthma(493.90) on inhalers Unspecified essential hypertension on medical management Upper abdominal pain Urinary frequency Vitamin D deficiency PAST SURGICAL HISTORY Procedure Laterality Date CHOLECYSTECTOMY 04/02/2011 COLONOSCOPY W/BIOPSY SINGLE/MULTIPLE 12/16/2007 DILATION AND CURETTAGE DXAND/THER NONOBSTETRIC Dilation AND curettage EGD TRANSORAL BIOPSY SINGLE/MULTIPLE 12/16/2007 ESOPHAGOGASTRODUODENOSCOPY TRANSORAL DIAGNOSTIC age 14 EGD LAPAROSCOPIC APPENDECTOMY 05/16/2011 MIDLINE INSERTION/CONSULT 07/29/2012 Lap Paul-en-Y gastric bypass PAST SURGICAL HISTORY OF age 14 left knee surgery, for dislocation PAST SURGICAL HISTORY OF age 5 warts removed PAST SURGICAL HISTORY OF 03/02/2007 laser surgery to both eyes for diabetic retinopathy PAST SURGICAL HISTORY OF 04/26/2008 Bilateral eye surgery- vitrectomy PAST SURGICAL HISTORY OF 06/30/2008 Left eye air fluid exchange PAST SURGICAL HISTORY OF 04/09, 07/07 retinal vitrectomies PAST SURGICAL HISTORY OF Left 07/24/2022 Left forearm AVG with [address] Valenzuela STRESS TEST 200p, 2014 Normal results TUBAL LIGATION HX ablation at the same time FAMILY HISTORY Problem Relation Age of Onset Thyroid Father Blindness Mother Diabetic retinopathy Diabetes Mother from renal disease Coronary Artery Disease Mother other (Diabetic Retinaopathy) Mother Cancer Mother uterine Stroke Mother Kidney Disease Mother Thyroid Sister skin cancer Kidney Disease Sister Diabetes Sister Diabetes Sister Coronary Artery Disease Brother Diabetes Brother Coronary Artery Disease Brother Colon Cancer Other none Breast Cancer Other none Social History Tobacco Use Smoking status: Former Packs/day: 2.00 Years: 6.00 Additional pack years: 0.00 Total pack years: 12.00 Types: Cigarettes Quit date: 07/31/1989 Years since quittin.0 Smokeless tobacco: Never Tobacco comments: Quit at age 24 Vaping Use Vaping Use: Never used Substance Use Topics Alcohol use: Not Currently Comment: rare Drug use: No Comment: Tried marijuana once - never used it again. MEDICATIONS: Current Outpatient Medications Medication Sig heparin (more content not included)...[facility] of Present illness Narrative* Dorene Murillo MD - 08/18/2023 1:33 PM EDT Images from the original note were not included. ORTHOPAEDIC SURGERY OFFICE NOTE: SURGERY: 1) Removal of Deep Orthopaedic Implants and Repair of the Right Tibial Nonunion with Autograft (06/12/2023) 2) Irrigation and Debridement of the Right Medial Knee Incisional Dehiscence (07/29/2023) 3) Secondary Closure of the Right Medial Knee Surgical Wound (08/03/2023) CHIEF COMPLAINT: Routine Post-Operative Follow-Up HISTORY OF PRESENT ILLNESS: Margareth Gonzalez is a 58 year old female who presents for routine post- operative follow-up from the above listed operations (see Surgery above for full details). At today's appointment, the patient reports doing well. The patient endorses controlled pain to the right knee. The patient denies right knee incisional complications including excessive pain, swelling, erythema and drainage. The patient has maintained non-weightbearing recommendations with the right lower extremity. The patient is recovering at a [place] [facility] facility and participating in physical therapy. The patient denies nausea, night-sweats, fevers and chills. The patient has no additional orthopaedic traumatic complaint s at this time. Reviewed nursing note and current pain scale. PAST MEDICAL HISTORY Diagnosis Date Acute gastritis without mention of hemorrhage Allergic rhinitis Anaphylaxis Anemia Back pain Benign essential tremor Bipolar I disorder, most recent episode (or current) unspecified sectrum Bone mass Candidiasis, intertrigo Chronic kidney disease Contraceptive management Depression Diabetes ([facility]) Diarrhea DVT, lower extremity ([facility]) 08/2014 Right leg (6) Esophagitis ESRD (end stage renal disease) ([facility]) 07/03/2022 Facial fracture due to fall ([facility]) ([facility]) Fatigue Fibromyalgia Fracture Fracture of shaft of fibula GERD (gastroesophageal reflux disease) HLD (hyperlipidemia) on tricor Hyperlipidemia Hypertension Hypomagnesemia Hypopotassemia IBS (irritable bowel syndrome) Insomnia Intertrigo Knee pain Morbid obesity ([facility]) 03/11/2011 Myalgia Nausea Neck pain Neuropathy Nocturnal leg cramps Non-cardiac chest pain Obesity CASSIE (obstructive sleep apnea) 07/08/2011 Other polyp of sinus Other specified anemias Personal history of unspecified urinary disorder PMH - PAST MEDICAL HISTORY OF left knee surgery x3 Pulmonary nodules Pyelonephritis, acute Restless leg Ruptured appendicitis S/P gastric bypass Snoring Type 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, not stated as uncontrolled(250.50) on oral medications and Lanuts Unspecified asthma(493.90) on inhalers Unspecified essential hypertension on medical management Upper abdominal pain Urinary frequency Vitamin D deficiency PAST SURGICAL HISTORY Procedure Laterality Date CHOLECYSTECTOMY 04/02/2011 COLONOSCOPY W/BIOPSY SINGLE/MULTIPLE 12/16/2007 DILATION & CURETTAGE DX&/THER NONOBSTETRIC Dilation & curettage EGD TRANSORAL BIOPSY SINGLE/MULTIPLE 12/16/2007 ESOPHAGOGASTRODUODENOSCOPY TRANSORAL DIAGNOSTIC age 14 EGD LAPAROSCOPIC APPENDECTOMY 05/16/2011 MIDLINE INSERTION/CONSULT 07/29/2012 Lap Paul-en-Y gastric bypass PAST SURGICAL HISTORY OF age 14 left knee surgery, for dislocation PAST SURGICAL HISTORY OF age 5 warts removed PAST SURGICAL HISTORY OF 03/02/2007 laser surgery to both eyes for diabetic retinopathy PAST SURGICAL HISTORY OF 04/26/2008 Bilateral eye surgery- vitrectomy PAST SURGICAL HISTORY OF 06/30/2008 Left eye air fluid exchange PAST SURGICAL HISTORY OF 04/09, 07/07 retinal vitrectomies PAST SURGICAL HISTORY OF Left 07/24/2022 Left forearm AVG with [address] Valenzuela STRESS TEST 200p, 2014 Normal results TUBAL LIGATION HX ablation at the same time FAMILY HISTORY Problem Relation Age of Onset Thyroid Father Blindness Mother Diabetic retinopathy Diabetes Mother from renal disease Coronary Artery Disease Mother other (Diabetic Retinaopathy) Mother Cancer Mother uterine Stroke Mother Kidney Disease Mother Thyroid Sister skin cancer Kidney Disease Sister Diabetes Sister Diabetes Sister Coronary Artery Disease Brother Diabetes Brother Coronary Artery Disease Brother Colon Cancer Other none Breast Cancer Other none Social History Tobacco Use Smoking status: Former Packs/day: 2.00 Years: 6.00 Additional pack years: 0.00 Total pack years: 12.00 Types: Cigarettes Quit date: 07/31/1989 Years since quittin.0 Smokeless tobacco: Never Tobacco comments: Quit at age 24 Vaping Use Vaping Use: Never used Substance Use Topics Alcohol use: Not Currently Comment: rare Drug use: No Comment: Tried marijuana once - never used it again. MEDICATIONS: Current Outpatient Medications Medication Sig heparin 5,000 unit/mL injection Inject 1 mL subcutaneously every 8 hours for 21 days. metroNIDAZOLE (FLAGYL) 500 mg tablet Take 1 tablet by mouth every 8 hours for 60 doses. sulfamethoxazole-trimethoprim (BACTRIM) 400-80 mg per tablet Take 1 tablet by mouth once daily for 20 doses. labetalol (TRANDATE) 100 mg tablet Take 1 tablet by mouth two times a day. senna (SENOKOT) 8.6 mg tab Take 1 tablet by mouth two times a day. sevelamer carbonate (RENVELA) 800 mg tablet Take 800 mg by mouth three times a day with meals. hydrOXYzine HCl (ATARAX) 50 mg tablet Take 1 tablet by mouth every 6 hours as needed for itching/rash. ondansetron orally disintegrating (ZOFRAN ODT) 4 mg disintegrating tablet Take 1 tablet by mouth every 8 hours as needed for nausea/vomiting. sertraline (ZOLOFT) 50 mg tablet Take 1 tablet by mouth once daily. TRULICITY 1.5 mg/0.5 mL pen injector INJECT 1.5 MG UNDER THE SKIN ONCE A WEEK acetaminophen (TYLENOL) 500 mg tablet Take 1,000 mg by mouth every 12 hours. atorvastatin (LIPITOR) 40 mg tablet Take 1 tablet by mouth daily at bedtime. For cholesterol. calcitriol (ROCALTROL) 0.25 mcg capsule Take 0.25 mcg by mouth once daily. Per diaylsis melatonin 5 mg tablet Take 5 mg by mouth. As needed. omeprazole (PRILOSEC) 20 mg capsule Take 1 capsule by mouth once daily. flash glucose scanning reader (SimpleReachSTYLE FESTUS 2 READER) Use to check glucose 3 times daily and continuously. 1 per year. flash glucose sensor (FREESTYLE FESTUS 2 SENSOR) kit Use to check glucose 3 times daily and continuously. Change every 14 days. 6 per 90 day supply. cholecalciferol (VITAMIN D3) 5,000 unit tab Take 5,000 Units by mouth twice daily. aspirin, enteric coated (ADULT LOW DOSE ASPIRIN) 81 mg EC tablet Take 1 tablet by mouth once daily.(Patient taking differently: Take 81 mg by mouth every morning.) Qufykati-Sa-Fxu-Fe-FA ( VITAMIN) ORAL Tab Take 1 tablet by mouth once daily. amitriptyline (ELAVIL) 100 mg tablet Take 1 tablet by mouth daily at bedtime. No current facility-administered medications for this visit. ALLERGIES: ALLERGIES Allergen Reactions Vicodin [Hydrocodon* Vomiting Balsam 115 Balsam Juan Unknown Barium Sulfate Unknown Benadryl Allergy De* Itching Benadryl [Diphenhyd* Rash, Itching Codeine Vomiting, Other: See Comments Lisinopril Contraindication-Medical Surgical Acute renal failure Mold Nsaids (Non-Steroid* Other: See Comments Unable to take nsaids after having gastric bypass. Penicillins Anaphylaxis Seasonal Allergies Other: See Comments Nose runs, sneezing... Tetracycline Rash Vanilla Extract Vanilla Extract Fla* Unknown PHYSICAL EXAMINATION: Resp 18 Ht 5' 8 (1.73m) Wt 194 lb (88.0kg) LMP 09/20/2014 BMI 29.50 kg/(m^2). General Appearance: No acute distress Skin: See Extremity exam below for full details Right Lower Extremity: Healing incision to the medial knee with intact Nylon sutures. There is no albin-incisional erythema nor drainage. Compartments of the thigh and leg are soft and compressible. The patient has active ankle dorsiflexion, ankle plantarflexion and extensor hallucis longus motor function. Sensation intact to light touch in the sural, saphenous, superficial peroneal, deep [place]one[place] tibial nerve distributions. Brisk capillary refill to the digits of the foot. IMAGES: None ASSESSMENT AND PLAN: 1. 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 - ICD9: 733.82, ICD10: S82.291K -Sutures removed from the right medial knee incision (the patient tolerated the procedure well) -Soft dressing applied to the right lower extremity -Non-weightbearing with the right lower extremity; okay for active and active- assist right knee range of motion with an emphasis on achieving terminal right knee extension -Wound care at the patient's [place] [facility] facility for daily dressing changes and incisional monitoring -Bactrim and Flagyl per infectious disease recommendations through 08/24/2023 -Pain control per [place] [facility] facility protocol -Elevation of the right lower extremity for swelling reduction -The patient will follow-up in 4 weeks or sooner if needed OARRS reviewed All patient questions and concerns were answered and addressed Dorene Muirllo MD Orthopaedic Trauma Surgery 08/18/2023 1:34 PM [facility] NoteHNO ID: [id number] Author: BURKE GARVEY MD Service: Nephrology Author Type: Nurse Practitioner Type: Progress Notes Filed: 08/07/2023 19:03 Note Text: Attestation signed by Burke Garvey MD at 08/07/2023 7:03 PM NEPHROLOGY STAFF PHYSICIAN NOTE OF PERSONAL INVOLVEMENT IN CARE AND VISIT ATTESTATION I have seen the patient face to face and reviewed the history and physical examination obtained and documented by Penelope Mendenhall APRN.CNP. I personally participated in the soriano components. I have discussed the case and management of the patient's care. Agree with the findings, assessment and plan of care below. Amendments, if present, are entered in the note and/or detailed below. Following for ESRD. Patient is being discharged today to [facility]. She will be dialyzed here on [facility] machine. She will be followed there by my partner, Dr. Hill. There is no need for dialysis today. Burke Garvey MD (Maday Mistry MD) Please do not hesitate to call me at if there is any questions. Nephrology Progress Note Following for ESRD Seen in room resting NAD No new events overnight No CP or SOB No n/v/d Tolerated HD yesterday DC plan for SNF Current Inpatient Medications: labetalol 150 mg tab(s) (TRANDATE), 150 mg, ORAL, BID, Lily Parker MD, 150 mg at 08/07/23 0754 sulfamethoxazole-trimethoprim 400-80 mg 1 tablet (BACTRIM), 1 tablet, ORAL, DAILY, Lily Parker MD, 1 tablet at 08/07/23 0754 metroNIDAZOLE 500 mg tab(s) (FLAGYL), 500 mg, ORAL, q 8 H, Lily Parker MD, 500 mg at 08/07/23 0415 acetaminophen 975 mg tab(s) (TYLENOL), 975 mg, ORAL, q 6 H PRN, Lily Parker MD, 975 mg at 08/06/23 1330 hydrOXYzine HCl 50 mg tab(s) (ATARAX), 50 mg, ORAL, q 6 H PRN, Lily Parker MD, 50 mg at 08/06/23 2100 atorvastatin 40 mg tab(s) (LIPITOR), 40 mg, ORAL, AT BEDTIME, Lily Parker MD, 40 mg at 08/06/23 2100 melatonin 6 mg tab(s), 6 mg, ORAL, DAILY (8 PM), Lily Parker MD, 6 mg at 08/06/232099 sertraline 50 mg tab(s) (ZOLOFT), 50 mg, ORAL, DAILY, Lily Parker MD, 50 mg at 08/06/232099 amitriptyline 100 mg tab(s) (ELAVIL), 100 mg, ORAL, AT BEDTIME, Lily Parker MD, 100 mg at 08/06/232099 ondansetron (PF) 4 mg injection (ZOFRAN), 4 mg, INTRAVENOUS, q 6 H PRN, Lily Parker MD, 4 mg at 08/06/23 1455 NaCl 0.9% iv flush bag, 20 mL, INTRAVENOUS, PRN, Lily Parker MD pantoprazole DR 20 mg tab(s) (PROTONIX), 20 mg, ORAL, DAILY (6 AM), Lily Parkre MD, 20 mg at 08/07/23 0415 dextrose 15 gram/32 mL 15 g (TRUEPLUS), 15 g, ORAL, PRN, Lily Parker MD Or glucagon 1 mg injection, 1 mg, INTRAMUSCULAR, PRN, Lily Parker MD Or dextrose 10% iv bolus, 12.5 g, INTRAVENOUS, PRN, Lily Parker MD calcitriol 0.25 mcg cap(s) (ROCALTROL), 0.25 mcg, ORAL, DAILY, Lily Parker MD, 0.25 mcg at 08/07/23 0754 sevelamer carbonate 800 mg tab(s) (RENVELA), 800 mg, ORAL, TID w MEALS, Lily Parker MD, 800 mg at 08/07/23 0754 oxyCODONE IR 2.5-5 mg tab(s) (ROXICODONE), 2.5-5 mg, ORAL, q 4 H PRN, Lily Parker MD, 5 mg at 08/07/23 0415 HYDROmorphone 0.2 mg injection (DILAUDID), 0.2 mg, INTRAVENOUS, q 4 H PRN, Lily Parker MD senna-docusate 8.6-50 mg 1 tablet (SENNA-S), 1 tablet, ORAL, BID, Lily Parker MD, 1 tablet at 08/07/23 0754 heparin 5,000 Units injection, 5,000 Units, SUBCUTANEOUS, q 8 H, Lily Parker MD, 5,000 Units at 08/06/23 2100 heparin 5,000 unit/mL injection, Inject 1 mL subcutaneously every 8 hours for 21 days., Disp: 63 mL, Rfl: 0 metroNIDAZOLE (FLAGYL) 500 mg tablet, Take 1 tablet by mouth every 8 hours for 60 doses., Disp: 60 tablet, Rfl: 0 sulfamethoxazole-trimethoprim (BACTRIM) 400-80 mg per tablet, Take 1 tablet by mouth once daily for 20 doses., Disp: 20 tablet, Rfl: 0 Vitals: BP 146/69 Pulse 88 Temp 36.7 ?C (98 ?F) (Oral) Resp 16 Ht 172.7 cm (5' 8) Wt 88.3 kg (194 lb 10.7 oz) LMP 09/20/2014 SpO2 96% BMI 29.60 kg/m? BLOOD PRESSURE RANGE: Systolic (24hrs), Av , Min:89 , Max:177 ; Diastolic (24hrs), Av, Min:46, Max:95 24HR INTAKE/OUTPUT: Intake/Output Summary (Last 24 hours) at 08/07/2023 1057 Last data filed at 08/06/2023 2100 Gross per 24 hour Intake 990 ml Output 2400 ml Net -1410 ml Physical exam: Constitutional: NAD Skin: turgor wnl Heent: mmm Cardiovascular: Normal S1, S2 without m/r/g Respiratory: CTAB Abdomen: +bs, soft, nt, nd Ext: no lower extremity edema Data: Labs: Recent Labs 08/05/23 0456 WBC 6.97 HB 9.4* HCT 29.7* MCV 103.8* PLT 155 Recent Labs 08/05/23 0456 NA 136 K 4.3 CO2 28 BUN 17 CREAT 2.89* CA 8. (more content not included)...[facility] Note HNO ID: [id number] Author: CHRIS LINK, RN Service: Care Management Author Type: Registered Nurse Type: Care Mgt Progress Note Filed: 08/07/2023 08:56 Note Text: CARE MANAGEMENT DISCHARGE NOTE SERVICE DATE: August 07, 2023 SERVICE TIME: 8:55 AM Admission Date: 07/29/2023 LOS: 9 days Discharge Arrangement Discharge Arrangement: [facility] Facility Was an expedited discharge program used?: No Services Arranged Medical Services: Other: See Comment Caregiver Assessment Caregiver is ready, willing and able to meet the patient's needs as recommended by the inter-professional team: Yes Name of Caregiver: [facility] Transportation Arrangements Transportation Arrangements: Ambulance Transportation Agency and Phone #:: [facility] ( [facility] ) [phone] / [phone] Date of Trip: 08/07/23 Time of Trip: 1300 Type of Service: BLS Non-emergency Is Patient Medicaid Pending?: No Was transportation financial coverage discussed with family?: 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 7000 completed in toby Moyer RN to call report and packet next to patient chart. Facility will transport patient to [facility] for dialysis. SIGNATURE: Chris Link RN PATIENT NAME: Margareth Gonzalez DATE: August 07, 2023 TIME: 8:55 AM CONTACT #: [id number] [facility] Center06-[facility]24 Note HNO ID: [id number] Author: DORENE MURILLO MD Service: Orthopaedic Surgery Author Type: Physician Type: Progress Notes Filed: 08/07/2023 11:24 Note Text: Orthopaedic Trauma Surgery Attending Addendum Reviewed resident Progress Note. The patient was personally seen and examined on 08/07/2023. Agree with resident history, physical examination, assessment and plan unless otherwise noted. No acute events overnight. Negative-pressure wound dressing removed from the right medial knee incision. Incision healing well without albin-incisional erythema and drainage. -Management per orthopaedic trauma surgery -PT/OT: Non-weightbearing with the right lower extremity; no right knee range of motion at this time -IV Antibiotics: Bactrim 400-80 mg PO daily and Flagyl 500 mg PO q8H per infectious disease recommendation through 08/24/2023 -DVT PPX: SCD to the left lower extremity; Heparin 5000 units subcutaneous q8H for 21 days -Dressings: Prevena to the right medial knee for 7 days -Pain control; ice and elevation of the right lower extremity -Consultations: Medicine, nephrology and infectious disease (appreciate recommendations) -Discharge to SNF today Dorene Murillo MD Orthopaedic Trauma Surgery 08/07/2023 11:23 AM Orthopaedic Surgery Inpatient Progress Note ASSESSMENT: 58 year old female POD # 4 s/p IANDD R tibial nonunion site, secondary closure wound, wound vac placement PLAN: -Management per orthopaedic trauma surgery -PT/OT: Non-weightbearing with the right lower extremity; no right knee range of motion at this time -IV Antibiotics: Bactrim 400-80 mg PO daily and Flagyl 500 mg PO q8H per infectious disease recommendation -DVT PPX: SCD to the left lower extremity; Heparin 5000 units subcutaneous q8H for 21 days -Dressings: Negative-pressure wound dressing to the right knee on continuous suction at 125 mm of Hg (the patient will be discharged to SNF with a negative-pressure wound dressing to the right knee) -Pain control; ice and elevation of the right lower extremity -Consultations: Medicine, nephrology and infectious disease (appreciate recommendations) -Discharge to SNF today after vac change Subjective No acute events overnight. Pain controlled. No new numbness or tingling. No other complaints. No fevers, chills, chest pain, or shortness of breath. No new complaints. Physical Examination Vitals BP 143/64 Pulse 83 Temp 36.9 ?C (98.4 ?F) (Oral) Resp 16 Ht 172.7 cm (5' 8) Wt 88.3 kg (194 lb 10.7 oz) LMP 09/20/2014 SpO2 95% BMI 29.60 kg/m? General Alert and oriented. No acute distress. Cooperative with interview. Right lower Extremity Alignment normal. No gross deformities. Wound vac in place - clean dry and intact Soft dressing in place - clean dry and intact Compartments of the thigh and leg are soft and compressible Tolerates passive stretch of the digits SILT Cornell/Sa/DP/SP/T. Motor intact EHL/DF/PF. DP pulse palpable; BCR all digits. Labs Recent Labs 08/05/23 0456 NA 136 K 4.3 CHLOR 99 CO2 28 BUN 17 CREAT 2.89* GLUC 103* ANION 9 CA 8.6 WBC 6.97 HB 9.4* HCT 29.7* PLT 155 Dave Blanchard MD Orthopaedic Surgery 08/07/2023 5:43 AM[facility]06-07-2024 NoteHNO ID: [id number] Author: FRANNY NO, RN Service: Nursing Author Type: Registered Nurse Type: Nursing Progress Note Filed: 08/07/2023 04:30 Note Text: Attempted to collect morning labs, Pt. Refused, Ortho resident notified.[facility]05[facility] Telephone encounter Note* Telephone Encounter - Nedra Cramer - 07/29/2023 8:00 AM EDT Chart indicates patient brought to ED and is scheduled with Dr. Murillo today for surgery of the wound. Nedar Cramer July 29, 2023 8:00 AM [facility]05-29-2024 Miscellaneous Notes* Telephone Encounter - Nedra Cramer - 07/29/2023 8:00 AM EDT Chart indicates patient brought to ED and is scheduled with Dr. Murillo today for surgery of the wound. Nedra Cramer July 29, 2023 8:00 AM * Telephone Encounter - Nedra Cramer - 07/28/2023 3:21 PM EDT Was told that patient sent photos via My Chart, but stated that I cannot see them. Informed Gisselle that patient has to message her doctor's office, choose the doctor's name (Ozzie) and attach photos to that message and send. She will try again. Nedra rCamer July 28, 2023 3:22 PM * Telephone Encounter - Nedra Cramer - 07/28/2023 1:40 PM EDT Received vm message from Gisselle at [facility], asking for an appointment to be scheduled forpatient's right lower extremity infection, . No office hours available until 08/02. Checking with Dr. Murillo to see what he advises. Nedra Cramer July 28, 2023 1:41 PM * Telephone Encounter - Nedra Cramer - 07/28/2023 1:12 PM EDT VM message from Halle, who called to say the patient is in a alf. She stated patient had surgery in her leg by in May. She stated her leg is infected, alf sent her to the hospital where she was given antibiotics. Stated the antibiotics make her ill, and patient's leg smells badly. Halle stated that the alf is not taking good care of the patient and she is reaching out for Dr. Murillo. Called Halle at [phone] and left vm message, asking what it is she is asking Dr. Murillo to do. I stated that he does not have the ability to oversee treating of the patient in the alf. Advising Dr. Murillo. Nedra Cramer July 28, 2023 1:14 PM documented in this encounterFisher-[facility]05-28-2024 Telephone encounter Note * Telephone Encounter - Nedra Cramer - 07/28/2023 3:21 PM EDT Was told that patient sent photos via My Chart, but stated that I cannot see them. Informed Gisselle that patient has to message her doctor's office, choose the doctor's name (Ozzie) and attach photos to that message and send. She will try again. Nedra Cramer July 28, 2023 3:22 PM [facility]05-28-2024 Telephone encounter Note* Telephone Encounter - Nedra Cramer - 07/28/2023 1:40 PM EDT Received vm message from Gisselle at [facility], asking for an appointment to be scheduled forpatient's right lower extremity infection, . No office hours available until 08/02. Checking with Dr. Murillo to see what he advises. Nedra Cramer July 28, 2023 1:41 PM [facility]05-28-2024 Telephone encounter Note* Telephone Encounter - Nedra Cramer - 07/28/2023 1:12 PM EDT VM message from Halle, who called to say the patient is in a alf. She stated patient had surgery in her leg by in May. She stated her leg is infected, alf sent her to the hospital where she was given antibiotics. Stated the antibiotics make her ill, and patient's leg smells badly. Halle stated that the alf is not taking good care of the patient and she is reaching out for Dr. Murillo. Called Halle at [phone] and left vm message, asking what it is she is asking Dr. Murillo to do. I stated that he does not have the ability to oversee treating of the patient in the alf. Advising Dr. Murillo. Nedra Cramer July 28, 2023 1:14 PM [facility]05-10-2024 Telephone encounter Note* Telephone Encounter - Rosemary Hassan - 07/10/2023 11:25 AM EDT ----- Message from Marie Andujar sent at 07/10/2023 11:06 AM EDT ----- Regarding: Orthopedics /Ozzie/ Refill Prescription Subject Line Format: Orthopedics /Ozzie/ Refill Prescription Patient has been identified by name and Date of (Y/N): Y Patient: Margareth Gonzalez Date of : 1965 Previous Provider Seen: Ozzie Body Part(s) Identified: na Diagnosis/Reason For Visit: refill prescription Reason for the call/escalation: Patient's nurse called requesting refill for Oxycodone 5mg every 6 Hrs sent to [facility] fax number : [phone]. If reason for call/escalation is discharge from ED/ER or Hospital, which facility was the patient seen at: na Was an appointment scheduled (Y/N): n Person calling if other than patient: Wilma Voss with [facility] Return call to if other than patient: [phone] Best contact number: [phone] Thank you, Marie Andujar July 10, 2023 11:06 AM [facility]05-10-2024 Miscellaneous Notes* Telephone Encounter - Rosemary Hassan - 07/10/2023 11:25 AM EDT ----- Message from Marie Andujar sent at 07/10/2023 11:06 AM EDT ----- Regarding: Orthopedics /Ozzie/ Refill Prescription Subject Line Format: Orthopedics /Ozzie/ Refill Prescription Patient has been identified by name and Date of (Y/N): Y Patient: Margareth Gonzalez Date of : 1965 Previous Provider Seen: Ozzie Body Part(s) Identified: na Diagnosis/Reason For Visit: refill prescription Reason for the call/escalation: Patient's nurse called requesting refill for Oxycodone 5mg every 6 Hrs sent to [facility] fax number : [phone]. If reason for call/escalation is discharge from ED/ER or Hospital, which facility was the patient seen at: na Was an appointment scheduled (Y/N): n Person calling if other than patient: Wilma Voss with [facility] Return call to if other than patient: [phone] Best contact number: [phone] Thank you, Marie Andujar July 10, 2023 11:06 AM documented in this encounterFisher-[facility]itus [facility]05-06-2024 History of Present illness Narrative* Dorene Murillo MD - 07/06/2023 12:35 PM EDT Images from the original note were not included. 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 At today's appointment, the patientreports doing well. The patient endorses well-controlled pain to the right knee. The patient has shabana ntained non-weightbearing recommendations with the right lower extremity. [place] [place] [facility] [place] The patient denies fevers and chills. The patient has no additional orthopaedic traumatic complaints at this time. Reviewed nursing note and current pain scale. PAST MEDICAL HISTORY Diagnosis Date Acute gastritis without mention of hemorrhage Allergic rhinitis Anaphylaxis Anemia Back pain Benign essential tremor Bipolar I disorder, most recent episode (or current) unspecified sectrum Bone mass Candidiasis, intertrigo Chronic kidney disease Contraceptive management Depression Diabetes ([facility]) Diarrhea DVT, lower extremity ([facility]) 08/2014 Right leg (6) Esophagitis ESRD (end stage renal disease) ([facility]) 07/03/2022 Facial fracture due to fall ([facility]) ([facility]) Fatigue Fibromyalgia Fracture Fracture of shaft of fibula GERD (gastroesophageal reflux disease) HLD (hyperlipidemia) on tricor Hyperlipidemia Hypertension Hypomagnesemia Hypopotassemia IBS (irritable bowel syndrome) Insomnia Intertrigo Knee pain Morbid obesity ([facility]) 03/11/2011 Myalgia Nausea Neck pain Neuropathy Nocturnal leg cramps Non-cardiac chest pain Obesity CASSIE (obstructive sleep apnea) 07/08/2011 Other polyp of sinus Other specified anemias Personal history of unspecified urinary disorder PMH - PAST MEDICAL HISTORY OF left knee surgery x3 Pulmonary nodules Pyelonephritis, acute Restless leg Ruptured appendicitis S/P gastric bypass Snoring Type 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, not stated as uncontrolled(250.50) on oral medications and Lanuts Unspecified asthma(493.90) on inhalers Unspecified essential hypertension on medical management Upper abdominal pain Urinary frequency Vitamin D deficiency PAST SURGICAL HISTORY Procedure Laterality Date CHOLECYSTECTOMY 04/02/2011 COLONOSCOPY W/BIOPSY SINGLE/MULTIPLE 12/16/2007 DILATION & CURETTAGE DX&/THER NONOBSTETRIC Dilation & curettage EGD TRANSORAL BIOPSY SINGLE/MULTIPLE 12/16/2007 ESOPHAGOGASTRODUODENOSCOPY TRANSORAL DIAGNOSTIC age 14 EGD LAPAROSCOPIC APPENDECTOMY 05/16/2011 MIDLINE INSERTION/CONSULT 07/29/2012 Lap Paul-en-Y gastric bypass PAST SURGICAL HISTORY OF age 14 left knee surgery, for dislocation PAST SURGICAL HISTORY OF age 5 warts removed PAST SURGICAL HISTORY OF 03/02/2007 laser surgery to both eyes for diabetic retinopathy PAST SURGICAL HISTORY OF 04/26/2008 Bilateral eye surgery- vitrectomy PAST SURGICAL HISTORY OF 06/30/2008 Left eye air fluid exchange PAST SURGICAL HISTORY OF 04/09, 07/07 retinal vitrectomies PAST SURGICAL HISTORY OF Left 07/24/2022 Left forearm AVG with [address] Valenzuela STRESS TEST 200p, 2014 Normal results TUBAL LIGATION HX ablation at the same time FAMILY HISTORY Problem Relation Age of Onset Thyroid Father Blindness Mother Diabetic retinopathy Diabetes Mother from renal disease Coronary Artery Disease Mother other (Diabetic Retinaopathy) Mother Cancer Mother uterine Stroke Mother Kidney Disease Mother Thyroid Sister skin cancer Kidney Disease Sister Diabetes Sister Diabetes Sister Coronary Artery Disease Brother Diabetes Brother Coronary Artery Disease Brother Colon Cancer Other none Breast Cancer Other none Social History Tobacco Use Smoking status: Former Packs/day: 2.00 Years: 6.00 Additional pack years: 0.00 Total pack years: 12.00 Types: Cigarettes Quit date: 07/31/1989 Years since quittin.9 Smokeless tobacco: Never Tobacco comments: Quit at age 24 Vaping Use Vaping Use: Never used Substance Use Topics Alcohol use: Not Currently Comment: rare Drug use: No Comment: Tried marijuana once - never used it again. MEDICATIONS: Current Outpatient Medications Medication Sig labetalol (TRANDATE) 100 mg tablet Take 1 tablet by mouth two times a day. senna (SENOKOT) 8.6 mg tab Take 1 tablet by mouth two times a day. sevelamer carbonate (RENVELA) 800 mg tablet Take 800 mg by mouth three times a day with meals. hydrOXYzine HCl (ATARAX) 50 mg tablet Take 1 tablet by mouth every 6 hours as needed for itching/rash. ondansetron orally disintegrating (ZOFRAN ODT) 4 mg disintegrating tablet Take 1 tablet by mouth every 8 hours as needed for nausea/vomiting. sertraline (ZOLOFT) 50 mg tablet Take 1 tablet by mouth once daily. TRULICITY 1.5 mg/0.5 mL pen injector INJECT 1.5 MG UNDER THE SKIN ONCE A WEEK acetaminophen (TYLENOL) 500 mg tablet Take 1,000 mg by mouth every 12 hours. atorvastatin (LIPITOR) 40 mg tablet Take 1 tablet by mouth daily at bedtime. For cholesterol. calcitriol (ROCALTROL) 0.25 mcg capsule Take 0.25 mcg by mouth once daily. Per diaylsis glipiZIDE (GLUCOTROL XL) 5 mg 24 hr tablet Take 10 mg by mouth once daily. melatonin 5 mg tablet Take 5 mg by mouth. As needed. omeprazole (PRILOSEC) 20 mg capsule Take 1 capsule by mouth once daily. amitriptyline (ELAVIL) 100 mg tablet Take 1 tablet by mouth daily at bedtime. flash glucose scanning reader (O&P ProYLE FESTUS 2 READER) Use to check glucose 3 times daily and continuously. 1 per year. flash glucose sensor (SimpleReachSTYLE FESTUS 2 SENSOR) kit Use to check glucose 3 times daily and continuously. Change every 14 days. 6 per 90 day supply. cholecalciferol (VITAMIN D3) 5,000 unit tab Take 5,000 Units by mouth twice daily. aspirin, enteric coated (ADULT LOW DOSE ASPIRIN) 81 mg EC tablet Take 1 tablet by mouth once daily. Bysciljx-Yr-Lrz-Fe-FA ( VITAMIN) ORAL Tab Take 1 tablet by mouth once daily. ferrous sulfate 325 mg (65 mg iron) tablet Take 1 tablet by mouth. sodium bicarbonate 650 mg tablet Take 2 tablets by mouth twice daily. No current facility-administered medications for this visit. ALLERGIES: ALLERGIES Allergen Reactions Vicodin [Hydrocodon* Vomiting Balsam 115 Balsam [place] Unknown Barium Sulfate Unknown Benadryl Allergy De* Itching Benadryl [Diphenhyd* Rash, Itching Chamomile Asthma attack Chamomile Flower Anaphylaxis Codeine Vomiting, Other: See Comments Lisinopril Contraindication-Medical Surgical Acute renal failure Mold Nsaids (Non-Steroid* Other: See Comments Unable to take nsaids after having gastric bypass. Penicillins Anaphylaxis Seasonal Allergies Other: See Comments Nose runs, sneezing... Tetracycline Rash Vanilla Extract Vanilla Extract Fla* Unknown PHYSICAL EXAMINATION: Resp 20 Ht 5' 7 (1.70m) Wt 199 lb (90.3kg) LMP 09/20/2014 BMI 31.16 kg/(m^2). General Appearance: No acute distress Skin: See Extremity exam below for full details Right Lower Extremity: Incisions well-approximated to the right lower leg. There is no albin-incisional erythema nor drainage. Compartments of the thigh and leg are soft and compressible. The patient has active ankle dorsiflexion, ankle plantarflexion and extensor hallucis longus motor function. Sensation intact to light touch in the sural, saphenous, superficial peroneal, deep peroneal and tibialnerve distributions. Brisk capillary refill to the digits of the foot. IMAGES: Recent Results (from the past 36 hour(s)) XR KNEE LIMITED 2V AP/LAT RIGHT Narrative 2-view right knee x-rays demonstrate maintained length, alignment and rotation of the proximal tibial nonunion with intact orthopaedic implants. ASSESSMENT AND PLAN: 1. 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 - ICD9: 733.82, ICD10: S82.291K -2-view right knee x-rays ordered, obtained and independently interpreted (see image interpretationabove for full details) -Non-weightbearing with the right lower extremity; encouraged active right knee range of motion with an emphasis on achieving terminal knee extension -Physical therapy at the patient's nursing facility -Pain control: Roxicodone per [place] [facility] recommendation and acetaminophen -Ice and elevation of the right lower extremity for swelling reduction and pain control -Hygiene: the patient may participate in hygiene (avoid soaking/saturation until dicussed at futurefollow-up appointment) -The patient will follow-up in 6 weeks or sooner if needed OARRS reviewed All patient questions and concerns were answered and addressed Dorene Murillo MD Orthopaedic Trauma Surgery 07/09/2023 11:03 AM documented in this encounterFisher[facility]04-30-2024 Telephone encounter Note * Telephone Encounter - Rosemary Hassan - 06/30/2023 2:03 PM EDT [facility][phone] called in inquiring about the Rx for pain. The physicians at the facilityprefer to have the originating dr prescribe the refills. Also needing to be sent to [facility] in [place] (which is their pharmacy). Called [facility] to have the current (06/29/23) cancelled. Rosemary Hassan June 30, 2023 2:12 PM [facility]04-30-2024 Miscellaneous Notes* Telephone Encounter - Rosemary Hassan - 06/30/2023 2:03 PM EDT SNF ([phone] [facility] called in inquiring about the Rx for pain. The physicians at the facilityprefer to have the originating dr prescribe the refills. Also needing to be sent to [facility] in [place] (which is their pharmacy). Called [facility] to have the current (06/29/23) cancelled. Rosemary Hassan June 30, 2023 2:12 PM documented in this encounterFisher-Titus [facility] Center04-30-2024 Discharge summary Author Ismael Gillespie [facility] June 29, 2023 10:46pm Note Date/Time June 29, 2023 8:0 3pm [facility] Medical Records Department [address] [place] [id number] Emergency Department Summary 06/29/23 MR#: [id number] Acct: [id number] Name: Margareth GONZALEZ Rep #:[id number] 3 : 1965 58 From: Ismael Gillespie MD PCP: Dr. Ignacio Cheatham MD Status:REG E R Location: ED ADDENDUM by Dr. Ismael Gillespie MD on 06/29/23 at 2246 Blood bank informed us that patient has multiple antibodies in her blood will not be available till tomorrow. In light of this she will be discharged and arrangements will need to be made for transfusion as an outpatient. 06/29/232245<Electronically signed by Ismael Gillespie MD> Cosigner Signature (if applicable): cc: Dr. Ignacio Cheatham MD ~* Signed HPI History of Present Illness Chief Complaint: Abn Labs Detail of Chief Complaint: Hemoglobin 6.8 Informant: patient and SNF Onset/Context/Timing Onset: Today (Blood work this morning indicates hemoglobin is 6.8) Context: Gradual Onset (Prior hemoglobin on June 16 was 8.4 with hematocrit of 26.1. This [facility]) Timing: Continuous Quality: Fatigue and weakness Location: Generalized Current Severity: Mild Maximum Severity: Mild Worsened by: Dyspnea on exertion Relieved by: Nothing Associated Symptoms Associated Symptoms: Nothing Narrative Narrative: Patient is a 58-year-old woman. She underwent orthopedic surgery approximately 2 to 2.5 weeks ago. Stephen in her right leg was defective and broke. She had to undergo surgery at [facility]. She went underwent extensive surgery. She was sent in because of hemoglobin 6.8. Patient's only complaint is fatigue weakness and dyspnea with activity. She denies chest pain. She denies black or maroon stool. She denies hematuria. She denies bleeding of hergums. She is not on an anticoagulant. She is on a baby aspirin a day. She denies bruising easily. Prior similar symptoms: No Recent Illness/Hospitalization: Yes PFSH [facility] Medical History Anemia Anxiety and depression Asthma Benign essential hypertension Bipolar disorder Chronic anemia COPD with asthma Diabetes Diabetes mellitus, type 2 Dialysis patient DVT (deep venous thrombosis) ESRD (end stage renal disease) on dialysis Fibromyalgia Former smoker Former tobacco use Fracture of fibula, right, closed Fracture of right lower extremity GERD (gastroesophageal reflux disease) History of asthma History of bipolar disorder History of COPD History of diabetes mellitus, type II History of tobacco use HLD (hyperlipidemia) HTN (hypertension) Hyperkalemia Inability to walk Kidney disease Kidney disease, chronic, stage IV (GFR 15-29 ml/min) Neuropathy Obesity Osteoarthritis of right knee Pathological fracture, right tibia, initial encounter for fracture Sleep apnea Home Medications cholecalciferol (vitamin D3) 25 mcg (1,000 unit) capsule (Vitamin D3) 5,000 unitPO DAILY SUPPLEMENT 10/03/13 [History Last Taken 01/18/23] omeprazole 20 mg capsule,delayed release 20 mg PO DAILY 08/23/14 [History Last Taken 01/18/23] glipizide 5 mg tablet 10 mg PO DAILY DIABETES 04/28/15 [History Last Taken 01/18/23] melatonin 5 mg capsule 5 mg PO QHS 05/27/16 [History Last Taken 01/18/23] ferrous sulfate 325 mg (65 mg iron) tablet (Iron (ferrous sulfate)) 325 mg PO DAILY SUPPLEMENT 11/25/16 [History Last Taken 01/18/23] amitriptyline 100 mg tablet 100 mg PO QHS DEPRESSION 09/10/22 [History Last Taken 01/18/23] atorvastatin 40 mg tablet 40 mg PO QHS CHOLESTEROL 09/10/22 [History Last Taken 01/18/23] calcitriol 0.25 mcg capsule 0.25 mcg PO BID 09/10/22 [History Last Taken 01/18/23] dulaglutide 1.5 mg/0.5 mL subcutaneous pen injector (Trulicity) 1.5 mg subcut SUDIABETES 09/10/22 [History Last Taken 01/18/23] docusate sodium 100 mg capsule (DOK) 100 mg PO DAILY STOOL SOFTENER #20 NTAEYYVY24/16/23 [Rx Last Taken Unknown] labetalol 100 mg tablet 100 mg PO BID blood pressure 02/04/23 [History Last Taken Unknown] sevelamer carbonate 800 mg tablet 1,600 mg PO TID 02/04/23 [History Last Taken Unknown] oxycodone-acetaminophen 5 mg-325 mg tablet 1 tab PO Q6H PRN PRN Pain 3 days #12 TABLETS 06/09/23 [Rx Last Taken Unknown] aspirin 81 mg capsule 81 mg PO DAILY 06/29/23 [History Last Taken Unknown] hydroxyzine HCl 50 mg tablet 50 mg PO QHS 06/29/23 [History Last Taken Unknown] vitamin with calcium no.72-iron 27 mg-folic acid 1 mg tablet ( Vitamins Plus Low Iron) 1 tab PO DAILY 06/29/23 [History Last Taken Unknown] sertraline 50 mg tablet 50 mg PO DAILY 06/29/23 [History Last Taken Unknown] Allergy/AdvReac Type Severity Reaction Status Date / Time balsam juan Allergy Unknown UNKNOWN Verified 03/09/23 09:33 mold Allergy Unknown unknown Verified 03/09/23 09:33 lisinopril Allergy unknown Verified 03/09/23 09:33 Penicillins Allergy Anaphylaxis Verified 03/09/23 09:33 tetracycline [Tetracycline] Allergy Anaphylaxis Verified 03/09/23 09:33 codeine AdvReac Abd Verified 03/09/23 09:33 cramps/diarrhea diphenhydramine HCl AdvReac Upset Verified 03/09/23 09:33 [From Benadryl] Stomach hydrocodone bitartrate AdvReac Abd Verified 03/09/23 09:33 [From Vicodin] cramps/diarrhea NSAIDS (Non-Steroidal AdvReac Unknown Verified 03/09/23 09:33 Anti-Inflamma Family History Mother Heart disease Hypertension Diabetes Kidney disease Father Diabetes Surgical History H/O gastric bypass H/O vascular surgery History of appendectomy History of cholecystectomy S/P appendectomy S/P cholecystectomy Social History household members: none Smoking Status: Former smoker how long ago did patient quit smoking: Quit age 24. alcohol intake: never substance use type: does not use ROS ROS ED Constitutional Constitutional ED: Denies chills, fever(s) or subjective Eyes Eyes: Denies blurry vision or change in vision ENT ENT ED: Denies sore throat Cardiovascular Cardiovascular: Denies chest pain or palpitations Respiratory/Chest Respiratory/Chest: Reports dyspnea on exertion; Denies cough or dyspnea Gastrointestinal Gastrointestinal: Denies diarrhea, melena or vomiting Genitourinary Genitourinary ED: Denies hematuria Integumentary Denies rash Hematologic/Lymphatic Hematologic/Lymphatic: Reports systems reviewed and no addt'l complaints, exceptas documented; Denies easy bleeding or easy bruising EXAM Physical Exam Const Vital Signs: 06/29/23 19:40 06/29/23 19:44 Temperature 97.4 F L Temperature Source Temporal Pulse Rate 94 Respiratory Rate 15 Respiratory Effort Normal Respiratory Pattern Normal Blood Pressure 167/65 H Blood Pressure Mean 99 Pulse Ox 98 Oxygen Delivery Method Room Air Positive well nourished, well developed and obese General Appearance ED: well developed, NAD and pallor Nutritional Appearance: obese HEENT Reports moist mucous membranes HEENT Narrative: Head is atraumatic no cephalic. Ears normal. Eyes PERRL and EOMs intact bilaterally General Eye ED: Yes pale conjunctiva; Negative for scleral icterus Neck no lymphadenopathy and supple Chest Wall inspection of chest normal and palpation of chest normal Resp normal respiratory effort and clear to auscultation bilaterally Cardio regular rate, regular rhythm, S1 normal heart sound, S2 normal heart sound and no murmurs GI normal to inspection, nondistended, normoactive bowel sounds, non-tender and non-distended; Negative for hepatosplenomegaly Extremity Negative for normal to inspection Extremity Narrative: Patient has a knee brace right lower extremity and dressing to wounds status post surgery. Neuro oriented x3 and CN's II-XII intact bilaterally Sensorium / Orientation: alert Psych mental status grossly normal Skin General Skin Exam: pallor MDM MDM MDM Narrative Medical decision making narrative: Patient with chronic anemia and symptomatic. She was typed and crossed for 1 unit of blood. She received 1 unit of blood and then discharged back to facility. Prior records from [facility] were reviewed. Priorhemoglobin at [facility] was March this year and 9.1. Suspecther drop is due to her chronic illness/renal failure and recent surgery. Lab Data Lab results narrative: Hemoglobin 7.5 at our lab. This was then lab error. Patient will receive a unit of blood and then discharge Labs: Laboratory Results - last 24 hr 06/29/23 06/29/23 20:05 20:39 WBC 5.1 RBC 2.31 L Hgb 7.5 L Hct 25.3 L MCV 109.5 H MCH 32.5 H MCHC 29.6 L RDW Std Deviation 67.9 H RDW Coeff of Ben 17.3 H Plt Count 162 MPV 8.7 Blood Type Cancelled Antibody Screen Cancelled Crossmatch See Detail See Detail Discharge Plan Triage Chief Complaint: Abn Labs ED Provider: Ismael Gillespie Dx/Rx/DC Orders Clinical Impression: Transfusion of blood during current hospitalisation, Anemia due to chronic kidney disease, on chronic dialysis, Signs and symptoms of anemia, Symptomatic anemia Instructions: Blood Transfusion Adult Dc Prescriptions: No Action cholecalciferol (vitamin D3) [Vitamin D3] 1,000 UNIT capsule 5,000 unit PO DAILY omeprazole 20 MG capsule 20 mg PO DAILY glipizide 5 MG tablet 10 mg PO DAILY melatonin 5 MG capsule 5 mg PO QHS ferrous sulfate [Iron (ferrous sulfate)] 325 MG tablet 325 mg PO DAILY atorvastatin 40 mg tablet 40 mg PO QHS calcitriol 0.25 mcg capsule 0.25 mcg PO BID Trulicity 1.5 mg/0.5 mL pen injector 1.5 mg SUBCUT CORNELL Patient Comments: PT STATED HASNT USED IN TWO WEEKS amitriptyline 100 mg tablet 100 mg PO QHS docusate sodium [DOK] 100 mg capsule 100 mg PO DAILY Qty: 20 0RF sevelamer carbonate 800 mg tablet 1,600 mg PO TID labetalol 100 mg tablet 100 mg PO BID oxycodone-acetaminophen 5-325 mg tablet 1 tab PO Q6H PRN PRN (Reason: Pain) 3 Days Qty: 12 0RF aspirin 81 mg capsule 81 mg PO DAILY hydroxyzine HCl 50 mg tablet 50 mg PO QHS sertraline 50 mg tablet 50 mg PO DAILY Vitamin Plus Low Iron 27 mg iron- 1 mg tablet 1 tab PO DAILY Primary Care Provider: Ignacio Cheatham Referrals: Ignacio Cheatham MD [Primary Care Provider] - As Needed Disposition Disposition: Home, Self Care What to do if you have Problems For any increased pain, shortness of breath, bleeding, nausea or vomiting, chestpain, or any unexpected problems, contact your Primary Care Provider. Call [facility] ([phone]) or report to the closest Emergency Room. Call 911 if necessary. 06/29/232110 <Electronically signed by Ismael Gillespie MD> Cosigner Signature (if applicable): CC: Dr. Ignacio Cheatham MD ~ Signed [facility] Work Phone: 1(144) 593-905404-24-2024 Telephone encounter Note* Telephone Encounter - Claudette Cordero LPN - 06/24/2023 10:50 AM EDT Ameena with [employer] called to let you know she pt's designated nurse employment case manager. Direct line she can be reached at PH: [phone] EXT: [phone]. Claudette Cordero LPN [facility]04-24-2024 Miscellaneous Notes* Telephone Encounter - Claudette Cordero LPN - 06/24/2023 10:50 AM EDT Ameena with [employer] called to let you know she pt's designated nurse employment case manager. Direct line she can be reached at PH: [phone] EXT: [phone]. Claudette Cordero LPN documented in this [facility]04-[facility]-2024 Telephone encounter Note * Telephone Encounter - Rosemary Hassan - 06/23/2023 4:[address] [facility] [phone] and scheduled PT per Dr. Murillo's note. Rosemary Hassan June 23, 2023 4:08 PM [facility]04-23-2024 Miscellaneous Notes* Telephone Encounter - Rosemary Hassan - 06/23/2023 4:[address] [facility] [phone] and scheduled PT per Dr. Murillo's note. Rosemary Hassan June 23, 2023 4:08 PM * Telephone Encounter - Rosemary Hassan - 06/23/2023 1:48 PM EDT ----- Message from Sally Peralta sent at 06/23/2023 10:12 AM EDT ----- Regarding: Ptoqt-Phjvrpit-Kkyf Op- Tibia Fracture Subject Line Format: Orthopedics / [Provider Name or Open & Body Part] / [Issue] Patient has been identified by name and Date of (Y/N): y Patient: Margareth Gonzalez Date of : 1965 Previous Provider Seen: Ozzie Body Part(s) Identified: r tibia Diagnosis/Reason For Visit: er follow up- post op Reason for the call/escalation: er follow up post op Thursday or thursday If reason for call/escalation is discharge from ED/ER or Hospital, which facility was the patient seen at: [facility] Was an appointment scheduled (Y/N): n/a Person calling if other than patient: [facility] Return call to if other than patient: [facility] Best contact number: [phone] Thank you, Sally Peralta June 23, 2023 10:13 AM * Telephone Encounter - Rosemary Hassan - 06/18/2023 9:15 AM EDT ----- Message from Dorene Murillo MD sent at 06/18/2023 8:59 AM EDT ----- Follow up 07/05. Thanks documented in this [facility]04[facility]2024 Telephone encounter Note * Telephone Encounter - Rosemary Hassan - 06/23/2023 1:48 PM EDT ----- Message from Sally Peralta sent at 06/23/2023 10:12 AM EDT ----- Regarding: Canwc-Jvsprras-Mkal Op- Tibia Fracture Subject Line Format: Orthopedics / [Provider Name or Open & Body Part] / [Issue] Patient has been identified by name and Date of (Y/N): y Patient: Margareth Gonzalez Date of : 1965 Previous Provider Seen: Ozzie Body Part(s) Identified: r tibia Diagnosis/Reason For Visit: er follow up- post op Reason for the call/escalation: er follow up post op Thursday or thursday If reason for call/escalation is discharge from ED/ER or Hospital, which facility was the patient seen at: [facility] Was an appointment scheduled (Y/N): n/a Person calling if other than patient: [facility] Return call to if other than patient: [facility] Best contact number: [phone] Thank you, Sally Peralta June 23, 2023 10:13 AM [facility]04-18-2024 Telephone encounter Note* Telephone Encounter - Rosemary Hassan - 06/18/2023 9:15 AM EDT ----- Message from Dorene Murillo MD sent at 06/18/2023 8:59 AM EDT ----- Follow up 07/05. Thanks [facility]04-16-2024 Ismael from [facility] called to see if referral was received. Confirmed it's in media. Teams sent, no response. Disconnected then saw the message. Called sister Halle to schedule and made he aware she went into the ER at [facility] and had surgery 06/12/23 w/ Dr. Dorene Murillo. NO apt made. Returned call to Linda @ [phone] to make her aware the referral was not scheduled. Patient still in house with [facility] from surgery.[facility] 06-16-2023 Telephone encounter Note* Telephone Encounter - Radha Smith - 06/16/2023 2:48 PM EDT Linda from [facility] called to see if referral was received. Confirmed it's in media. Teams sent, no response. Disconnected then saw the message. Called sister Halle to schedule and made he aware she went into the ER at [facility] and had surgery 06/12/23 w/ Dr. Dorene Murillo. NO apt made. Returned call to Linda @ [phone] to make her aware the referral was not scheduled. Patient still in house with [id number] Miscellaneous Notes* Telephone Encounter - Radha Smith - 06/16/2023 2:48 PM EDT Linda from [facility] called to see if referral was received. Confirmed it's in media. Teams sent, no response. Disconnected then saw the message. Called sister Halle to schedule and made he aware she went into the ER at [facility] and had surgery 06/12/23 w/ Dr. Dorene Murillo. NO apt made. Returned call to Linda @ [phone] to make her aware the referral was not scheduled. Patient still in house with [facility] from surgery. * Telephone Encounter - Liz Hopper - 06/15/2023 9:53 AM EDT Referral information received. Attempted to call Halle justice, to schedule. No answer. LVM with direct line. Schedule with Mo on 06/[address] being completed on 06/21 xray / [employer] pathological fx, right tibia, delayed healing, referral from [facility] in media, Patient to bring CT from 06/21 on disc * Telephone Encounter - Ирина Lindsey - 06/12/2023 3:57 PM EDT Name of Caller: [facility] Contact Reason for Appointment: BREANNA Villavicencio is requesting that Arnold be seen as soon as possible by Dr. Hassan. Linda states that she faxed over records a few days ago. After checking informed her that office did not receive the records. She is going to refax the documents and states she will call back on Thursday. Office Name: Ortho documented in this [facility]04-15-2024 NoteReferral information received. Attempted to call Halle justice, to schedule. No answer. LVM with direct line. Schedule with Mo on 06/[address] completed on 06/21 xray / [employer] pathological fx, right tibia, delayed healing, referral from [facility] in media, Patient to bring CT from 06/21 on [facility] 06-15-2023 Telephone encounter Note* Telephone Encounter - Liz Hopper - 06/15/2023 9:53 AM EDT Referral information received. Attempted to call sister, Halle, to schedule. No answer. LVM with direct line. Schedule with Mo on 06/[address] completed on 06/21 xray / [employer] pathological fx, right tibia, delayed healing, referral from [facility] in media, Patient to bring CT from 06/21 on disc [facility] [id number] Telephone encounter Note* Telephone Encounter - Ирина Lindsey - 06/12/2023 3:57 PM EDT Name of Caller: Linda - [facility] Contact Reason for Appointment: BREANNA Villavicencio is requesting that Arnold be seen as soon as possible by Dr. Hassan. Linda states that she faxed over records a few days ago. After checking informed her that office did not receive the records. She is going to refax the documents and states she will call back on Thursday. Office Name: Ortho [facility] [id number] Miscellaneous Notes* Telephone Encounter - Sarah Zaman MA - 06/11/2023 7:49 AM EDT Patient seen at [facility] and transferred to [facility]. She is admitted and scheduled for surgery tomorrow. * Telephone Encounter - Elvira Maldonado RN - 06/10/2023 3:34 PM EDT Arnold called. The stephen that was placed in her leg in November of 2022 has broken. She has been advisedthat she needs to find an orthopaedic trauma surgeon within the [facility] to repair it forher. Would Dr. Riggs be able to do a referral for her? Arnold also stated that, if he cannot help her, should she be evaluated at [facility] and see if they can refer her to a provider? She would like to speak with someone as soon as possible. If she does not answer, you may leave a detailed message on her voicemail for number [phone]. Elvira Maldonado RN documented in this [facility]04-08-2024 Telephone encounter Note * Telephone Encounter - Kat Joaquin LPN - 06/08/2023 10:12 AM EDT Pt. calling to let you know she was in Er and has a crack in a stephen that is in her leg. She is goingto Follow up with Ortho on Thursday. Leg is slightly red if it gets worse will call tomorrow. [facility] Work Phone: 1(484) 693-847104-08-2024 Miscellaneous Notes* Telephone Encounter - Kat Joaquin LPN - 06/08/2023 10:12 AM EDT Pt. calling to let you know she was in Er and has a crack in a stephen that is in her leg. She is goingto Follow up with Ortho on Thursday. Leg is slightly red if it gets worse will call tomorrow. documented in this encounter[facility]03-20-2024 Miscellaneous Notes* Telephone Encounter - Ignacio Cheatham MD - 05/20/2023 4:45 PM EDT noted * Telephone Encounter - Ameena Dumont RN - 05/20/2023 4:20 PM EDT Patient calling to say she feels her leg is not improving since fracture. She says her leg feels wobbly and she is not sure if it is due to the fracture or other reason. She saw Dr. Gerard on 05/15/23. Has PVR scheduled 06/16/23, f/u with Dr. Gerard on 06/18/23 and f/u with PCP on 06/19/23. She denies new or worsening symptoms. She is using a cane for mobility. She has awalker and advised patient to use it if needed for stability. Offered sooner appointment with PCP but she says she will get her testing done, f/u with Podiatry and/or ORTHO and call back if she needs appointment for new or worsening symptoms. Ameena Dumont, RN documented in this encounterFisher[facility]03-15-2024 Instructions* Patient Instructions* Frank Gerard - 05/15/2023 11:53 AM EDT Diabetes Foot Care Instructions When you have diabetes, proper foot care is very important. Poor foot care may lead to amputation of a foot or leg. As a person with diabetes, you are more vulnerable to foot problems, because diabetes can damage your nerves and reduce blood flow to your feet. Here are some diabetes foot care tips to follow: Wash and Dry Your Feet Daily Use mild soaps Use warm water Pat your skin dry; do not rub. Thoroughly dry your feet. After washing, use lotion on your feet to prevent cracking. Do not put lotion between your toes. Examine Your Feet Each Day Check the tops and bottoms of your feet. Have someone else look at your feet if you cannot see them. Check for dry, cracked skin. Look for blisters, cuts, scratches, or other sores. Check for redness, increased warmth, or tenderness when touching any area of your feet. Check for ingrown toenails, corns, and calluses. If you get a blister or sore from your shoes, do not pop it. Apply a bandage and wear a differentpair of shoes. Take Care of Your Toenails Cut toenails after bathing, when they are soft. Cut toenails straight across and smooth with a nail file. Avoid cutting into the corners of toes. Do not cut cuticles. If you have neuropathy (or decreased sensation in your feet) a warp scouring vat tender should always cut your toenails. Be Careful When Exercising Walk and exercise in comfortable shoes. Do not exercise when you have open sores on your feet. Protect Your Feet With Shoes and Socks Never go barefoot. Always protect your feet by wearing shoes or hard-soled slippers or footwear. Avoid shoes with high heels and pointed toes. Avoid shoes that expose your toes or heels (such as open-toed shoes or sandals). These types of shoes increase your risk for injury and potential infections. Try on new footwear with the type of socks you usually wear. Do not wear new shoes for more than an hour at a time. Change your socks daily. Look and feel inside your shoes before putting them on to make sure there are no foreign objects orrough areas. Avoid tight socks. Wear natural-fiber socks (cotton, wool, or a cotton-wool blend). Wear special shoes if your health care provider recommends them. Wear shoes/boots that will protect your feet from various weather conditions (cold, moisture, etc.). Make sure your shoes fit properly. If you have neuropathy (nerve damage), you may not notice that your shoes are too tight. Perform the footwear test described below. Footwear Test Use this simple test to see if your shoes fit correctly: Stand on a piece of paper. (Make sure you are standing and not sitting, because your foot changes shape when you stand.) Trace the outline of your foot. Trace the outline of your shoe. Compare the tracings: Is the shoe too narrow? Is your foot crammed into the shoe? The shoe should be at least 1/2 inch longer than your longest toe and as wide as your foot. Proper Shoe Choices The following types of shoes are best for people with diabetes Closed toes and heels Leather uppers without a seam inside At least 1/2 inch extra space at the end of your longest toe Inside of shoe should be soft with no rough areas Outer sole should be made of stiff material Shoes should be at least as wide as your feet Tips for Foot Care in Diabetes Don't wait to treat a minor foot problem if you have diabetes. Follow your health care provider's guidelines and first aid guidelines. Report foot injuries and infections to your health care provider immediately. Check water temperature with your elbow, not your foot. Do not use a heating pad on your feet. Do not cross your legs. Do not self-treat your corns, calluses, or other foot problems. Go to your health care provider or warp scouring vat tender to treat these conditions. Recommend topical antibiotic (neosporin) to right great toe until healed. documented in this encounterFisher[facility]03-15-2024 History of Present illness Narrative* Davidlila Frank - 05/15/2023 11:40 AM EDT Images from the original note were not included. Consultation requested by Dr. Cheatham for an opinion regarding diabetic foot exam. My final recommendations will be communicated back to the requesting physician by way of shared Medical record or letter to requesting physician via US mail. Initial Office Visit Subjective: This 57 year old female presents to clinic for diabetic foot check. Patient has the following complaints: curling of toes of right foot causing pain. She states the toes have started to curl and this has been going on for about 1 year. . Patient admits to being diabetic for 34 years now. Patient +B/T/N in feet at this time. Patient -pain in legs when walking. No other pedal complaintsat this time. No change in medications or medical history since last visit. PAIN EVALUATION 05/15/2023 1122 Pain Level: 3 Pain Location: Other: See Comment bilateral Description: Shooting Duration Units: Months Frequency: Intermittent Intervention/Comfort measure: Reposition;Relaxation Hemoglobin A1C Date Value 01/21/2023 5.8 08/11/2022 8.4 % 03/22/2022 7.3 % 09/21/2021 7.8 % 05/07/2021 9.7 % 10/27/2020 7.7 % 07/20/2020 9.8 % 04/21/2020 10.9 % 02/21/2019 8.9 % 07/07/2018 7.9 % PCP: Ignacio Cheatham MD PAST MEDICAL HISTORY Diagnosis Date Acute gastritis without mention of hemorrhage Allergic rhinitis Anaphylaxis Anemia Back pain Benign essential tremor Bipolar I disorder, most recent episode (or current) unspecified sectrum Bone mass Candidiasis, intertrigo Chronic kidney disease Contraceptive management Depression Diabetes ([facility]) Diarrhea DVT, lower extremity ([facility]) 08/2014 Right leg (6) Esophagitis ESRD (end stage renal disease) ([facility]) 07/03/2022 Facial fracture due to fall ([facility]) ([facility]) Fatigue Fibromyalgia Fracture Fracture of shaft of fibula GERD (gastroesophageal reflux disease) HLD (hyperlipidemia) on tricor Hyperlipidemia Hypertension Hypomagnesemia Hypopotassemia IBS (irritable bowel syndrome) Insomnia Intertrigo Knee pain Morbid obesity ([facility]) 03/11/2011 Myalgia Nausea Neck pain Neuropathy Nocturnal leg cramps Non-cardiac chest pain Obesity CASSIE (obstructive sleep apnea) 07/08/2011 Other polyp of sinus Other specified anemias Personal history of unspecified urinary disorder PMH - PAST MEDICAL HISTORY OF left knee surgery x3 Pulmonary nodules Pyelonephritis, acute Restless leg Ruptured appendicitis S/P gastric bypass Snoring Type 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, not stated as uncontrolled(250.50) on oral medications and Lanuts Unspecified asthma(493.90) on inhalers Unspecified essential hypertension on medical management Upper abdominal pain Urinary frequency Vitamin D deficiency Current Outpatient Medications Medication Sig ferrous sulfate 325 mg (65 mg iron) tablet Take 1 tablet by mouth. sevelamer carbonate (RENVELA) 800 mg tablet Take 800 mg by mouth three times a day with meals. hydrOXYzine HCl (ATARAX) 50 mg tablet Take 1 tablet by mouth every 6 hours as needed for itching/rash. ondansetron orally disintegrating (ZOFRAN ODT) 4 mg disintegrating tablet Take 1 tablet by mouth every 8 hours as needed for nausea/vomiting. sertraline (ZOLOFT) 50 mg tablet Take 1 tablet by mouth once daily. TRULICITY 1.5 mg/0.5 mL pen injector INJECT 1.5 MG UNDER THE SKIN ONCE A WEEK diclofenac (VOLTAREN ARTHRITIS PAIN) 1 % topical gel Apply 2 g to affected area four times daily. acetaminophen (TYLENOL) 500 mg tablet Take 1,000 mg by mouth every 12 hours. atorvastatin (LIPITOR) 40 mg tablet Take 1 tablet by mouth daily at bedtime. For cholesterol. calcitriol (ROCALTROL) 0.25 mcg capsule Take 0.25 mcg by mouth once daily. Per diaylsis glipiZIDE (GLUCOTROL XL) 5 mg 24 hr tablet Take 10 mg by mouth once daily. melatonin 5 mg tablet Take 5 mg by mouth. As needed. oxyCODONE ir (OXYIR) 5 mg capsule Take 5 mg by mouth every 4 hours as needed for pain. sodium bicarbonate 650 mg tablet Take 2 tablets by mouth twice daily. oxyCODONE-acetaminophen (PERCOCET) 5-325 mg tablet Take 1 tablet by mouth every 6 hours as needed for pain. labetalol (TRANDATE) 100 mg tablet Take 1 tablet by mouth twice daily. (Patient taking differently:Take 200 mg by mouth two times a day.) omeprazole (PRILOSEC) 20 mg capsule Take 1 capsule by mouth once daily. flash glucose scanning reader (SimpleReachSTYLE FESTUS 2 READER) Use to check glucose 3 times daily and continuously. 1 per year. flash glucose sensor (FREESTYLE FESTUS 2 SENSOR) kit Use to check glucose 3 times daily and continuously. Change every 14 days. 6 per 90 day supply. cholecalciferol (VITAMIN D3) 5,000 unit tab Take 5,000 Units by mouth twice daily. aspirin, enteric coated (ADULT LOW DOSE ASPIRIN) 81 mg EC tablet Take 1 tablet by mouth once daily. Pkwkdohb-Kb-Gpe-Fe-FA ( VITAMIN) ORAL Tab Take 1 tablet by mouth once daily. hydrOXYzine pamoate (VISTARIL) 25 mg capsule Take by mouth. methoxy peg-epoetin beta (MIRCERA INJECTION) 150 mcg. amitriptyline (ELAVIL) 100 mg tablet Take 1 tablet by mouth daily at bedtime. No current facility-administered medications for this visit. ALLERGIES Allergen Reactions Vicodin [Hydrocodon* Vomiting Balsam 115 Balsam Juan Unknown Barium Sulfate Unknown Benadryl Allergy De* Itching Benadryl [Diphenhyd* Rash, Itching Chamomile Asthma attack Chamomile Flower Anaphylaxis Codeine Vomiting, Other: See Comments Lisinopril Contraindication-Medical Surgical Acute renal failure Mold Nsaids (Non-Steroid* Other: See Comments Unable to take nsaids after having gastric bypass. Penicillins Anaphylaxis Seasonal Allergies Other: See Comments Nose runs, sneezing... Tetracycline Rash Vanilla Extract Vanilla Extract Fla* Unknown PAST SURGICAL HISTORY Procedure Laterality Date CHOLECYSTECTOMY 04/02/2011 COLONOSCOPY W/BIOPSY SINGLE/MULTIPLE 12/16/2007 DILATION & CURETTAGE DX&/THER NONOBSTETRIC Dilation & curettage EGD TRANSORAL BIOPSY SINGLE/MULTIPLE 12/16/2007 ESOPHAGOGASTRODUODENOSCOPY TRANSORAL DIAGNOSTIC age 14 EGD LAPAROSCOPIC APPENDECTOMY 05/16/2011 MIDLINE INSERTION/CONSULT 07/29/2012 Lap Paul-en-Y gastric bypass PAST SURGICAL HISTORY OF age 14 left knee surgery, for dislocation PAST SURGICAL HISTORY OF age 5 warts removed PAST SURGICAL HISTORY OF 03/02/2007 laser surgery to both eyes for diabetic retinopathy PAST SURGICAL HISTORY OF 04/26/2008 Bilateral eye surgery- vitrectomy PAST SURGICAL HISTORY OF 06/30/2008 Left eye air fluid exchange PAST SURGICAL HISTORY OF 04/09, 07/07 retinal vitrectomies PAST SURGICAL HISTORY OF Left 07/24/2022 Left forearm AVG with [address] Valenzuela STRESS TEST 200p, 2014 Normal results TUBAL LIGATION HX ablation at the same time FAMILY HISTORY Problem Relation Age of Onset Thyroid Father Blindness Mother Diabetic retinopathy Diabetes Mother from renal disease Coronary Artery Disease Mother other (Diabetic Retinaopathy) Mother Cancer Mother uterine Stroke Mother Kidney Disease Mother Thyroid Sister skin cancer Kidney Disease Sister Diabetes Sister Diabetes Sister Coronary Artery Disease Brother Diabetes Brother Coronary Artery Disease Brother Colon Cancer Other none Breast Cancer Other none Social History Tobacco Use Smoking status: Former Packs/day: 2.00 Years: 6.00 Additional pack years: 0.00 Total pack years: 12.00 Types: Cigarettes Quit date: 07/31/1989 Years since quittin.8 Smokeless tobacco: Never Tobacco comments: Quit at age 24 Vaping Use Vaping Use: Never used Substance Use Topics Alcohol use: Not Currently Comment: rare Drug use: No Comment: Tried marijuana once - never used it again. REVIEW OF SYSTEMS GENERAL: Negative for Malaise, significant weight loss, fever RESPIRATORY: Negative for cough, wheezing and shortness of breath CARDIOVASCULAR: Negative for chest pain, leg swelling and palpitations GI: Negative for abdominal discomfort, blood in stools or black stools and change in bowel habits : Negative for dysuria, frequency and incontinence MUSCULOSKELETAL: Negative for joint pain or swelling, back pain, and muscle pain. SKIN: Negative for lesions, rash, and itching. HEMATOLOGY/LYMPHOLOGY Negative for prolonged bleeding, bruising easily, and swollen nodes. ENDOCRINE: Negative for cold or heat intolerance, polyuria, polydipsia and goiter. NEURO: negative The remainder of the review of systems is noncontributory. Objective: Patient presents to clinic ambulating in [facility] Constitutional: Pt is a well developed 57 year old female who is alert, oriented, cooperative and in no apparent distress. Eyes: Following during examination. No redness or drainage. Respiratory: RR normal and nonlabored. Even breathing. No evidence of distress. Psychology: Patient is engaged during conversation. Normal affect and mood. Does not appear depressed or anxious. Vasc: DP and PT pulses are nonpalpable bilateral. CFT is less than 5 seconds bilateral. Skin temperature is warm to cool proximal to distal bilateral. There is mild edema or varicosities noted. Hair growth present. Neuro: Protective sensation is decreased to the foot and toes when tested with the 5.07 SWM bilateral. Vibratory sensation is absent at the hallux bilateral. +Significant neurological defecits. Derm: Inspection and palpation performed. Nails 1 right is thick and incurvated. There is dry bloodalong right hallux medial nail border. There is abrasion of right hallux. Mild redness is noted to right hallux proximal nail fold. are discolored-yellow, thick, crumbly, dystrophic and with subungaldebris. Skin is dry. Hyperkeratosis noted to not present. NO ulcerations, scars, verruca or other lesions noted. Ortho: Ankle joint DF is decreased with the knee extended and decreased with knee flexed. No pain or crepitus noted. STJ, MTJ ROM are full and free of pain or crepitus. Muscle strength is 5/5 for dorsiflexors, plantarflexors, inverters, everters. Assessment: (L60.0) Ingrowing toenail of right foot (primary encounter diagnosis) Pain in toe (G62.9) Neuropathy (E11.40) Type 2 diabetes, controlled, with neuropathy (HCC) (S91.109A) Open wound of toe of right foot (R09.89) Diminished pulses in lower extremity (M20.41, M20.42) Hammertoe, bilateral Plan: 1. Patient was seen and evaluated. 2. Patient was instructed on the continued importance of diabetic foot care along with proper diet and keeping their blood sugar under control to prevent complications. Instructions given both oral and written. 3. Discussed ingrowing toenail of right hallux. There is evidence of dry blood and some localized redness along proximal nail fold. I performed slant back today. Could consider partial vs total nail avulsionv s matrixectomy but would recommend pvr prior. 4. Will place patient on antibiotic. Will place her on doxycycline. Reviewed dosing due to renal insufficiency and discussed her allergy to tetracycline. She has elected pursue doxycycline. 5. Discussed small abrasion of right hallux. Will place her on antibiotic. Recommend topical antibiotic 6. Discussed hammertoe. Recommend wider shoes. If she were interested in correction, would need to check pvr prior. Frank Gerard DPM * Laura Valenzuela LPN - 05/15/2023 11:21 AM EDT AMB ROOMING INTAKE FLOWSHEET DATA Pain Pain Level: 3 Pain Location: Other: See Comment (bilateral) Description: Shooting Duration Units: Months Frequency: Intermittent Intervention/Comfort measure: Reposition, Relaxation Patient presents with: Left Foot - Established Patient, Follow Up, Pain, Swelling, Numbness, Diabetic Foot Care Right Foot - Diabetic Foot Ulcer, Established Patient, Follow Up, Pain, Swelling, Numbness, Diabetic Foot Care Patient broke tibia and fibula in January 19, 2023 where stephen and plates were placed at [facility] by Dr. Tucker. Patient states she has calcium build up in and in September 2022 while she was in alf she felt tendons snap which causes bruising. Patient has small wound to right great toe. Laura Valenzuela LPN [facility] History of Present illness Narrative* Gege Mccrary, OD - 05/01/2023 11:32 AM EST 1. 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, with long-term current use of insulin (HCC) Both eyes s/p Pars plana vitrectomy / Panretinal laser photocoagulation Posterior chamber intraocular lens Both eyes. Recommended tight BS control Educated patient to continue care with primary care doctor and/or nitroglycerin separator operator to maintain optimum levels as they are important to avoid ocular complications. Encouraged patient to call the officeimmediately with any changes to vision or visual concerns. Advised to not wait until the next schedu led exam. 2. Presbyopia 3. Pseudophakia of both eyes Finalized spec rx Urged patient to follow-up in 6 months for dilated exam or MATTEO with any changes in vision Gege Mccrary, OD May 01, 2023 11:32 AM documented in this [facility]02-[facility] Miscellaneous Notes* Telephone Encounter - Diana Brand RN - 04/14/2023 5:01 PM EST Call placed to patient and notified of provider message. Patient asking about EC. Based on symptomsrecommended go to ED because they will send her there for low BP with dizziness and light-headedness. Patient verbalizes understanding. Diana Brand RN * Telephone Encounter - Ignacio Cheatham MD - 04/14/2023 4:55 PM EST If lightheaded etc, to ER * Telephone Encounter - Diana Brand RN - 04/14/2023 4:52 PM EST Patient calls to ask if she should hold her next dose of labetalol. She reports at dialysis her bp was 90/? And she felt a little dizzy. Patient is not currently able to take BP reading. Cuff isn't working. She reports that usually after dialysis if BP drops and she takes a nap it returns to baseline of 129/? But today it doesn't feel like it is back to her normal. Please review and advise, Diana Brand RN documented [facility] Miscellaneous Notes* Telephone Encounter - Ada Cheng - 04/06/2023 1:16 PM EST Patient informed and verbalized understanding. No chest pain or shortness of breath. dAa Cheng * Telephone Encounter - Ignacio Cheatham MD - 04/06/2023 12:[address] shows old nodules are stable. However they see a few new ones. Recommend rechecking in six month. 2 the adrenal glands are slightly thickened, however, they state it is stable in appearance to t. It appears they did not call it significant back then. 3. She has some calcification of her heart arteries, however that was noted in the past in 2021 andshe had as stress test then for it. Make sure no current chest pain or shortness of breath. documented in this [facility] History of Present illness Narrative* Felix Edmondson RT(R) - 04/03/2023 2:00 PM EST Radiology Service Progress Note PATIENT NAME: Margareth Gonzalez DATE OF SERVICE: April 03, 2023 TIME: 2:46 PM PATIENT IDENTITY VERIFICATION COMPLETED USING TWO (2) IDENTIFIERS: Name and Date of confirmedby patient verbally. FALL SCREENING: Has the patient had 2 falls in the last year or 1 fall with injury or currently using an Ambulatory Assistive Device (Walker, Cane, Wheelchair, Crutches, etc.)? No PATIENT GENDER DATA: Female. status: : No status: NO. PATIENT RELEVANT IMPLANT DATA REVIEWED: Yes PATIENT PRESENTS WITH AN IMPLANTABLE OR ATTACHED LIME MIXER TENDER: No RADIOLOGY DEPARTMENT: CT; Exam(s) Completed: Chest PERIPHERAL IV DATA: Not applicable SIGNED BY: RT Howie(R) April 03, 2023 2:46 PM documented in this [facility]01-[facility]24 History of Present illness Narrative* Milvia Brown RT(R) - 03/17/2023 12:10 PM EST Radiology Service Progress Note PATIENT NAME: Margareth Gonzalez DATE OF SERVICE: March 17, 2023 TIME: 12:07 PM PATIENT IDENTITY VERIFICATION COMPLETED USING TWO (2) IDENTIFIERS: Name and Date of confirmedby patient verbally. FALL SCREENING: Has the patient had 2 falls in the last year or 1 fall with injury or currently using an Ambulatory Assistive Device (Walker, Cane, Wheelchair, Crutches, etc.)? Yes, Patient High Riskfor Falls What interventions were put in place to prevent falls during this visit? Instructed Patient to Callfor Help if Needed, Offered Assistance with Transfers/Clothing, and Increased Observations by Caregivers PATIENT GENDER DATA: Female. status: : No status: NO. PATIENT RELEVANT IMPLANT DATA REVIEWED: Yes RADIOLOGY DEPARTMENT: General X-ray: Exam(s) Completed: Lower Extremity X- Ray(s): Ankle, Right and Foot, Right PERIPHERAL IV DATA: Not applicable SIGNED BY: RT Fina(R) March 17, 2023 12:07 PM documented in this [facility]11[facility]23 Discharge summary Author Carolina Caba [facility] January 29, 2023 11:47am Note Date/Time January 29, 2023 11:47am [facility] Medical Records Department [address] [place] [id number] Transfer to [facility] MR#: [id number] Acct: [id number] Name: Margareth GONZALEZ Rep #:[id number] : 1965 57 From: Carolina Caba MD PCP: Dr. Ignacio Cheatham MD Status:ADM I N Certification of patient admission REQUIRED AT TIME OF ADMISSION. I CERTIFY THAT POST-HOSPITAL ECF SERVICES ARE REQUIRED TO BE GIVEN ON AN IN-PATIENT BASIS BECAUSE OF THE ABOVE NAMED PATIENT'S NEED FOR CARE HOME CARE ON A CONTINUING BASIS FOR THE CONDITION(S) FOR WHICH HE/SHE WAS RECEIVING IN-PATIENT HOSPITAL SERVICES PRIOR TO HIS/HER TRANSFER TO THE [facility]. 01/29/23 1147<Electronically signed by Carolina Caba MD> Diet Diet Order/Speech Therapy: 01/25/23 13:02 Diet: Renal - ConsCHO - Michael Cont Is pt able to select menu?: Yes How many daily calories?: 1999 calorie Routine Orders/Code Status Enema Type: Fleetz Enema Frequency: Daily PRN Suppository Type: Dulcolax 10mg Suppository Frequency: Daily PRN O2 Frequency: PRN Keep PO Greater than or Equal to (%): 90 Wound(s) RIGHT KNEE: Wound Type: Surgical Incision Therapies Weight Bearing: Weight bearing as tolerated Physical Therapy: Eval and Treat Occupational Therapy: Eval and Treat Problem/Diagnosis (1) ESRD (end stage renal disease) on dialysis: Status: Acute Code(s): N18.6 - End stage renal disease; Z99.2 - Dependence on renal dialysis (2) Hyperkalemia: Status: Acute Code(s): E87.5 - Hyperkalemia (3) Secondary hyperparathyroidism: Status: Acute Code(s): N25.81 - Secondary hyperparathyroidism of renal origin (4) Anemia: Status: Acute Code(s): D64.9 - Anemia, unspecified (5) Benign essential hypertension: Status: Acute Code(s): I10 - Essential (primary) hypertension Plan #Complete fracture of Right proximal tibia and fibula * 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 * RLE splinted. s/p right suprapatellar intramedullary tibial nail * PT/OT On board. Fall precautions. * on PO oxycodone, IV morphine prn for pain. * #ESRD: on HD TTS. Nephrology on board. Still makes urine #TYpe 2 diabetes mellitus: glipizide and trulicity. ISS. Accuchecks ACHS. A1C is5.8 #COPD: on breathing treatment with bronchodilators. Not in exacerbation #Chronic anemia * due to ESRD. stable. Will monitor * Hb today is 7.6. On iron supplementation * #DEpression: on zoloft #GERD: on PPI DVT prophylaxis: on eliquis. Disposition: awaiting dc to SNF pending precert. Allergies/Procedures Done in Hospital Allergies balsam juan Allergy (Unknown, Verified 01/19/23 07:12) UNKNOWN mold Allergy (Unknown, Verified 01/19/23 07:12) unknown lisinopril Allergy (Verified 01/19/23 07:12) unknown x Penicillins Allergy (Verified 01/19/23 07:12) Anaphylaxis tetracycline [Tetracycline] Allergy (Verified 01/19/23 07:12) Anaphylaxis codeine Adverse Reaction (Verified 01/19/23 07:12) Abd cramps/diarrhea diphenhydramine HCl [From Benadryl] Adverse Reaction (Verified 01/19/23 07:12) Upset Stomach hydrocodone bitartrate [From Vicodin] Adverse Reaction (Verified 01/19/23 07:12) Abd cramps/diarrhea NSAIDS (Non-Steroidal Anti-Inflamma Adverse Reaction (Verified 01/19/23 07:12) Unknown Procedures: None Type of Care/Length of Stay Estimated LOS: Convalescent Care Less Than 30 days Type of Care Needed: Skilled Rehab Potential: Fair Prognosis: Fair Additional Orders/Day of Discharge Day of Discharge: 01/29/23 Dietary and Speech Recommendations Dietitian Recommendations/Changes: RD will change diet to renal, 2000 calorie controlled, consistent CHO diet when medically indicated; will monitor PO intakeand adjust diet/add ONS as indicated Will discontinue Ensure Surgery due to not stocked on the floor and pt dislikes EPHP. Discharge Plan Admission Admit Date/Time: 01/19/23 13:44 Primary Reason for Your Visit: fracture of right tibia and fibula Attending Provider: Carolina Caba Primary Care Provider: Ignacio Cheatham Consulting Providers: Deshawn Tucker; Sofía Hill; Mone Riggs; Branden Banks Instructions Patient Instructions: Having Tibia/Fibula Fracture ... Discharge Orders/Prescriptions Prescriptions: New Eliquis 2.5 mg tablet 2.5 mg PO BID Qty: 56 0RF oxycodone 5 mg tablet 5 mg PO Q6H PRN (Reason: pain) 3 Days Qty: 12 0RF Continued cholecalciferol (vitamin D3) [Vitamin D3] 1,000 UNIT capsule 5,000 unit PO DAILY omeprazole 20 MG capsule 20 mg PO DAILY labetalol 200 MG tablet 100 mg PO BID glipizide 5 MG tablet 10 mg PO DAILY aspirin [Aspir-Low] 81 MG tablet,delayed release (DR/EC) 81 mg PO DAILY melatonin 5 MG capsule 5 mg PO QHS ferrous sulfate [Iron (ferrous sulfate)] 325 MG tablet 325 mg PO DAILY atorvastatin 40 mg tablet 40 mg PO QHS calcitriol 0.25 mcg capsule 0.25 mcg PO BID Trulicity 1.5 mg/0.5 mL pen injector 1.5 mg SUBCUT QWEEK sodium bicarbonate 650 mg tablet 650 mg PO QHS sertraline 50 mg tablet 50 mg PO QHS hydroxyzine HCl 50 mg tablet 50 mg PO Q6H PRN (Reason: itching) amitriptyline 100 mg tablet 100 mg PO QHS acetaminophen 325 mg Tablet 650 mg PO Q4H PRN PRN (Reason: Fever, pain 1-12/09) Qty: 0 0RF docusate sodium [DOK] 100 mg capsule 100 mg PO DAILY Qty: 20 0RF Discontinued oxycodone 5 mg tablet 5 mg PO Q8H PRN (Reason: pain) 3 Days Qty: 10 0RF Referrals / Follow Up: Sofía Hill MD [Med Staff - Consulting] - Within 2 Weeks Deshawn Tucker MD [Med Staff - Active Staff] - Within 2 Weeks Ignacio Cheatham MD [Primary Care Provider] - Within 1 Week Disposition Disposition (needs filled in before D/C Order can be placed): [facility] (4) Anemia Qualifiers: Anemia type: due to chronic kidney disease 01/29/23 1147 <Electronically signed by Carolina Caba MD> Cosigner Signature (if applicable): CC: Dr. Sofía Hill MD; Dr. Mone Riggs MD; Dr. Branden Banks MD; Dr.Steven Garrett MD; Dr. Ignacio Cheatham MD ~ [facility] Work Phone: 1(901) 813-990611-29-2023 Progress note Author [facility] January 28, 2023 4:50pm Note Date/Time January 28, 2023 10:14[facility] Medical Records Department [address] [place] [address] Progress Note 01/28/23 1009 MR#: [id number] Acct: [id number] Name: Margareth GONZALEZ [facility] Rep #:[id number] : 1965 57 From: Carolina Caba MD PCP: Dr. Ignacio Cheatham MD Status:ADM I N Location: [place] [address] Subjective Subjective Patient seen and examined. She had no active complaints and had an uneventful night; Review of systems is otherwise negative. She has remained hemodynamicallystable. Objective Data Objective Data Vital Signs: Vital Signs Temp Pulse Resp BP Pulse Ox O2 Del Method O2 Flow Rate 97.8 F 90 16 132/70 H 92 Room Air 2 01/28/23 06:55 01/28/23 06:55 01/28/23 06:55 01/28/23 06:55 01/28/23 06:55 01/28/23 06:55 01/26/23 08:52 Oxygen Flow Rate (L/min) 2 Oxygen Delivery Method Room Air Weight: 214 lb 4.629 oz Body Mass Index (BMI) 32.5 Intake & Output: Intake and Output for Last 24 Hours 01/26/23 01/27/23 01/28/23 23:59 23:59 23:59 Intake Total 1370 / 1370 1240 / 1240 0 / 0 Output Total 300 / 300 2350 / 2350 0 / 0 Balance 1070 / 1070 -1110 / -1110 0 / 0 Lab / Micro Data 01/28/23 05:50 01/27/23 05:20 Labs: Laboratory Results - last 24 hr 01/27/23 10:57: POC Glucose 157 H 01/27/23 16:14: POC Glucose 222 H 01/27/23 21:57: POC Glucose 155 H 01/28/23 05:50: WBC 8.7, RBC 2.54 L, Hgb 7.6 L, Hct 25.4 L, MCV 100.0 H, MCH 29.9, MCHC 29.9 L, RDW Std Deviation 51.3 H, RDW Coeff of Ben 14.2, Plt Count 303, MPV 8.9, Immature Gran % (Auto) 2.500 H, Neut % (Auto) 59.6, Lymph % (Auto)22.5, Canyon % (Auto) 9.6, Eos % (Auto) 5.0, Baso % (Auto) 0.8, Absolute Neuts (auto) 5.2, Absolute Lymphs (auto) 1.96, Nucleated RBC % 0 01/28/23 06:41: POC Glucose 125 H Physical Exam Const alert, oriented x3, no apparent distress and well nourished General Appearance: cooperative and well developed HEENT normocephalic, head/scalp atraumatic, moist oral mucous membranes and oropharynxnormal Eyes PERRL and EOMs intact bilaterally Neck no lymphadenopathy, supple and no JVD Lymph Lymphatic: no lymphadenopathy noted and no lymphedema noted Resp normal respiratory effort, normal air movement and clear to auscultation bilaterally Cardio regular rate, regular rhythm, S1 normal heart sound, S2 normal heart sound and no murmurs GI normal to inspection, nondistended, normoactive bowel sounds, soft to palpation,non-tender and non-distended Extremity normal capillary refill, no clubbing, cyanosis or edema and no calf tenderness Skin Skin Narrative: RLE wrapped in bandage General Skin Exam: no breakdown Neuro CN's II-XII intact bilaterally Coordination / Balance: [id number] test normal Motor Exam: general weakness Psych thought process normal, cooperative and affect normal Appearance: appropriate Assessment & Plan Assessment/Plan (1) Anemia: QUALIFIERS: Anemia type: due to chronic kidney disease (2) Fracture of fibula, right, closed: PLAN: Plan #Complete fracture of Right proximal tibia and fibula * 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 * RLE splinted. s/p right suprapatellar intramedullary tibial nail * PT/OT On board. Fall precautions. * on PO oxycodone, IV morphine prn for pain. * #ESRD: on HD TTS. Nephrology on board. Still makes urine #TYpe 2 diabetes mellitus: glipizide and trulicity. ISS. Accuchecks ACHS. A1C is5.8 #COPD: on breathing treatment with bronchodilators. Not in exacerbation #Chronic anemia * due to ESRD. stable. Will monitor * Hb today is 7.6. On iron supplementation * #DEpression: on zoloft #GERD: on PPI DVT prophylaxis: on eliquis. Disposition: awaiting dc to SNF pending precert. Charges/Coding Visit Charges Inpatient E&M: 75450 Subs Hosp L2 01/28/23 6400 <Electronically signed by Carolina Caba MD> Carolina Caba MD Cosigner Signature (if applicable): CC: ~ Signed [facility] Work Phone: 1(568) 318-763711-29-2023 Progress note Author Maday Lutz tr [facility] January 28, 2023 2:07pm Note Date/Time January 28, 2023 9:53am [facility] Medical Records Department [address] [place] [address] Progress Note - Nephrology 01/28/23 0951 MR#: [id number] Acct: [id number] Name: Margareth GONZALEZ Rep #:[id number] : 1965 57 From: Leda joshi [employer] PCP: Dr. Ignacio Cheatham MD Status:ADM I N Location: [place] [address] Subjective Subjective Resting in bed, no complaints. No overnight events. Objective Data Objective Data Vital Signs: Vital Signs Temp Pulse Resp BP Pulse Ox O2 Del Method O2 Flow Rate 97.8 F 90 16 132/70 H 92 Room Air 2 01/28/23 06:55 01/28/23 06:55 01/28/23 06:55 01/28/23 06:55 01/28/23 06:55 01/28/23 06:55 01/26/23 08:52 Oxygen Flow Rate (L/min) 2 Oxygen Delivery Method Room Air Weight: 97.2 kg Body Mass Index (BMI) 32.5 Intake & Output: Intake and Output for Last 24 Hours 01/26/23 01/27/23 01/28/23 23:59 23:59 23:59 Intake Total 1370 / 1370 1240 / 1240 0 / 0 Output Total 300 / 300 2350 / 2350 0 / 0 Balance 1070 / 1070 -1110 / -1110 0 / 0 Lab / Micro Data 01/28/23 05:50 01/27/23 05:20 Labs: Laboratory Results - last 24 hr 01/27/23 10:57: POC Glucose 157 H 01/27/23 16:14: POC Glucose 222 H 01/27/23 21:57: POC Glucose 155 H 01/28/23 05:50: WBC 8.7, RBC 2.54 L, Hgb 7.6 L, Hct 25.4 L, MCV 100.0 H, MCH 29.9, MCHC 29.9 L, RDW Std Deviation 51.3 H, RDW Coeff of Ben 14.2, Plt Count 303, MPV 8.9, Immature Gran % (Auto) 2.500 H, Neut % (Auto) 59.6, Lymph % (Auto)22.5, Canyon % (Auto) 9.6, Eos % (Auto) 5.0, Baso % (Auto) 0.8, Absolute Neuts (auto) 5.2, Absolute Lymphs (auto) 1.96, Nucleated RBC % 0 01/28/23 06:41: POC Glucose 125 H Physical Exam Narrative Alert awake oriented x 3 no obvious distress s1s2 no murmurs lungs clear abdomen soft no edema Soft cast, Hannah wrap to right leg AV fistula left forearm positive thrill and bruit Assessment & Plan Assessment/Plan (1) ESRD (end stage renal disease) on dialysis: (2) Hyperkalemia: (3) Secondary hyperparathyroidism: (4) Anemia: QUALIFIERS: Anemia type: due to chronic kidney disease (5) Benign essential hypertension: PLAN: Plan Impression/Plan: The patient is a 57-year-old woman with past history of type 2 diabetes mellitus, hypertension, ESRD, osteoporosis, and hyperlipidemia. The patient presented to the hospital on 01/19/2023 after ground-level fall. She was found to have right tibial fracture and is status post right intramedullary tibial nail on 01/21/2023. Nephrology is following for ESRD and dialysis management. ESRD; HD TTS schedule at [facility]. Dialyzed yesterday. No acute indication for S[employer]IOR [employer]LECT[employer] DES[employer] today, next dialysis tomorrow. Anemia in chronic kidney disease; monitor hemoglobin trends. Will continue giving JENISE with dialysis Discharge planning in progress to ECF for therapy, waiting for insurance approval. If discharged to ECF today, next dialysis would be tomorrow at [facility]. 01/28/23 2897 <Electronically signed by Leda KIMBALL> Cosigner Signature (if applicable): 01/28/23 1407 <Electronically signed by Maday Mistry MD> CC: ~ Signed [facility] Work Phone: [phone]) 234-475811-29-2023 Miscellaneous Notes* Telephone Encounter - Sarah Merida Ma - 01/28/2023 12:58 PM EST Received approval for Trulicity 1.5mg from [employer]. Effective 12/29/22 until 01/28/24. CLOSED * Telephone Encounter - Sarah Merida Ma - 01/28/2023 11:26 AM EST PA questionnaire faxed, Transmission ok Keep open * Telephone Encounter - Audra Gonzalez RN - 01/27/2023 3:08 PM EST Received PA forms from [employer] to complete for RX Trulicity. Completed questionnaire. Placed forms and office notes in providers in box for signature and date. Note: Patient has not been seen since 10/02/21. She has scheduled for 03/04/23, but this could impact whether this gets approved as she has not been evaluated. [facility] Progress note Author Carolina [facility] January 27, 2023 4:26pm Note Date/Time January 27, 2023 10:05am [facility] Medical Records Department [address] [place] [address] Progress Note 01/27/23 1003 MR#: [id number] Acct: [id number] Name: Margareth GONZALEZ Rep #:[id number] : 1965 57 From: Carolina Caba MD PCP: Dr. Ignacio Cheatham MD Status:ADM I N Location: [place] [address] Subjective Subjective Patient seen and examined. She had no complaints. She had some urinary symptoms overnight, but these have now resolved. REview of systems is otherwise negative.She is awaiting placement. Objective Data Objective Data Vital Signs: Vital Signs Temp Pulse Resp BP Pulse Ox O2 Del Method O2 Flow Rate 97.4 F L 87 13 124/45 H 98 Room Air 2 01/27/23 09:05 01/27/23 09:44 01/27/23 09:44 01/27/23 09:44 01/27/23 09:05 01/27/23 09:44 01/26/23 08:52 Oxygen Flow Rate (L/min) 2 Oxygen Delivery Method Room Air Weight: 218 lb 4.122 oz Body Mass Index (BMI) 33.2 Intake & Output: Intake and Output for Last 24 Hours 01/25/23 01/26/23 01/27/23 23:59 23:59 23:59 Intake Total 1495 / 1495 1370 / 1370 400 / 400 Output Total 150 / 150 300 / 300 Balance 1345 / 1345 1070 / 1070 400 / 400 Lab / Micro Data 01/26/23 04:33 01/27/23 05:20 Labs: Laboratory Results - last 24 hr 01/26/23 11:49: POC Glucose 226 H 01/26/23 16:26: POC Glucose 161 H 01/26/23 22:57: POC Glucose 159 H 01/27/23 05:20: Sodium 134 L, Potassium 4.7, Chloride 103, Carbon Dioxide 26.0, Anion Gap 5, BUN 63 H, Creatinine 5.70 H, Estim Creat Clear Calc 10.98, Est GFR (MDRD) Af Amer 10 L, Est GFR (MDRD) Non-Af 8 L, BUN/Creatinine Ratio 11.1, Glucose 124 H, Calcium 8.3 L 01/27/23 06:28: POC Glucose 116 H Radiography Diagnostic Testing: Radiology Impression Tibia/Fibula X-Ray 01/21/23 14:00 IMPRESSION: Intraoperative digital documentation views as described. Electronically Signed: Casa Galvez MD at 13:08 EST , Physical Exam Const alert, oriented x3, no apparent distress and well nourished General Appearance: cooperative and well developed HEENT normocephalic, head/scalp atraumatic, moist oral mucous membranes and oropharynxnormal Eyes PERRL and EOMs intact bilaterally Neck no lymphadenopathy, supple and no JVD Lymph Lymphatic: no lymphadenopathy noted and no lymphedema noted Resp normal respiratory effort, normal air movement and clear to auscultation bilaterally Cardio regular rate, regular rhythm, S1 normal heart sound, S2 normal heart sound and no murmurs GI normal to inspection, nondistended, normoactive bowel sounds, soft to palpation,non-tender and non-distended Extremity normal capillary refill, no clubbing, cyanosis or edema and no calf tenderness Skin Skin Narrative: RLE wrapped in bandage General Skin Exam: no breakdown Neuro CN's II-XII intact bilaterally Coordination / Balance: [id number]-vs-[id number] test normal Motor Exam: general weakness Psych thought process normal, cooperative and affect normal Appearance: appropriate Assessment & Plan Assessment/Plan (1) Anemia: QUALIFIERS: Anemia type: due to chronic kidney disease (2) Fracture of fibula, right, closed: PLAN: Plan #Complete fracture of Right proximal tibia and fibula * 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 * RLE splinted. s/p right suprapatellar intramedullary tibial nail * PT/OT On board. Fall precautions. * on PO oxycodone, IV morphine prn for pain. * #ESRD: on HD TTS. Nephrology on board. Still makes urine #TYpe 2 diabetes mellitus: glipizide and trulicity. ISS. Accuchecks ACHS. A1C is5.8 #COPD: on breathing treatment with bronchodilators. Not in exacerbation #Chronic anemia * due to ESRD.stable. Will monitor * #DEpression: on zoloft #GERD: on PPI DVT prophylaxis: on eliquis. Disposition: awaiting dc to SNF pending precert. Charges/Coding Visit Charges Inpatient E&M: 41252 Subs Hosp L2 01/27/23 1626 <Electronically signed by Carolina Caba MD> Carolina Caba MD Cosigner Signature (if applicable): CC: ~ Signed [facility] Work Phone: 1(350) 177-273511-27-2023 Progress note Author Sofía Hill [facility] January 26, 2023 7:32pm Note Date/Time January 26, 2023 9:00am [facility] Medical Records Department [address] [place], [place] [address] [place] [address] Progress Note - Nephrology 01/26/23 0855 MR#: [id number] Acct: [id number] Name: Margareth GONZAELZ Rep #:[id number] : 1965 57 From: Leda joshi [employer]C PCP: Dr. Ignacio Cheatham MD Status:ADM I N Location: [place] [address] Subjective Subjective Resting in bed. No complaints. No overnight events. Objective Data Objective Data Vital Signs: Vital Signs Temp Pulse Resp BP Pulse Ox O2 Del Method O2 Flow Rate 98.1 F 102 H 16 122/59 H 95 Nasal Cannula 2 01/26/23 08:52 01/26/23 08:52 01/26/23 08:52 01/26/23 08:52 01/26/23 08:52 01/26/23 08:52 01/26/23 08:52 Oxygen Flow Rate (L/min) 2 Oxygen Delivery Method Nasal Cannula Weight: 100 kg Body Mass Index (BMI) 33.5 Intake & Output: Intake and Output for Last 24 Hours 01/24/23 01/25/23 01/26/23 23:59 23:59 23:59 Intake Total 975 / 975 1495 / 1495 450 / 450 Output Total 1700 / 1700 150 / 150 300 / 300 Balance -725 / -725 1345 / 1345 150 / 150 Lab / Micro Data 01/26/23 04:33 01/25/23 06:30 Labs: Laboratory Results - last 24 hr 01/25/23 11:57: POC Glucose 158 H 01/25/23 17:01: POC Glucose 172 H 01/25/23 20:14: POC Glucose 167 H 01/26/23 04:33: WBC 4.9, RBC 2.81 L, Hgb 8.6 L, Hct 28.4 L, MCV 101.1 H, MCH 30.6, MCHC 30.3 L, RDW Std Deviation 51.8 H, RDW Coeff of Ben 14.1, Plt Count 264, MPV 8.9, Immature Gran % (Auto) 0.400, Neut % (Auto) 81.3 H, Lymph % (Auto)9.4 L, Canyon % (Auto) 6.3, Eos % (Auto) 2.2, Baso % (Auto) 0.4, Absolute Neuts (auto) 4.0, Absolute Lymphs (auto) 0.46 L, Nucleated RBC % 0, Differential Comment SCANNED 01/26/23 06:24: POC Glucose 176 H Physical Exam Narrative Alert awake oriented x 3 no obvious distress s1s2 no murmurs lungs clear abdomen soft no edema Soft cast, Hannah wrap to right leg AV fistula left forearm positive thrill and bruit Assessment & Plan Assessment/Plan (1) ESRD (end stage renal disease) on dialysis: (2) Hyperkalemia: (3) Secondary hyperparathyroidism: (4) Anemia: QUALIFIERS: Anemia type: due to chronic kidney disease (5) Benign essential hypertension: PLAN: Plan Impression/Plan: The patient is a 57-year-old woman with past history of type 2 diabetes mellitus, hypertension, ESRD, osteoporosis, and hyperlipidemia. The patient presented to the hospital on 01/19/2023 after ground-level fall. She was found to have right tibial fracture and is status post right intramedullary tibial nail on 01/21/2023. Nephrology is following for ESRD and dialysis management. ESRD; HD TTS schedule at [facility]. 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 Will plan for dialysis tomorrow. Hyperkalemia; resolved. Dialysis tomorrow on 2K bath Anemia in chronic kidney disease; hemoglobin 8.6 today. Will continue JENISE with dialysis and monitor hgb trends Discharge planning in progress possibly to ECF for therapy 01/26/23 0900 <Electronically signed by Leda KIMBALL> Cosigner Signature (if applicable): 01/26/23 193 <Electronically signed by Sofía Hill MD> CC: ~ Signed [facility] Work Phone: [phone]) 482-697511-27-2023 Progress note Author Carolina Caba [facility] January 26, 2023 4:08pm Note Date/Time January 26, 2023 2:46pm [facility] Medical Records Department [address] [place] [address] Progress Note 01/26/231442 MR#: [id number] Acct: [id number] Name: Margareth GONZALEZ Rep #:[id number] : 1965 57 From: Carolina Caba MD PCP: Dr. Ignacio Cheatham MD Status:ADM I N Location: [place] [address] Subjective Subjective Patient seen and examined. She felt well and had no complaints. He had an uneventful night. Review of systems is otherwise negative. Objective Data Objective Data Vital Signs: Vital Signs Temp Pulse Resp BP Pulse Ox O2 Del Method O2 Flow Rate 98.1 F 102 H 16 122/59 H 95 Room Air 2 01/26/23 08:52 01/26/23 08:52 01/26/23 08:52 01/26/23 08:52 01/26/23 08:52 01/26/23 13:33 01/26/23 08:52 Oxygen Flow Rate (L/min) 2 Oxygen Delivery Method Room Air Weight: 220 lb 7.396 oz Body Mass Index (BMI) 33.5 Intake & Output: Intake and Output for Last 24 Hours 01/24/23 01/25/23 01/26/23 23:59 23:59 23:59 Intake Total 975 / 975 1495 / 1495 870 / 870 Output Total 1700 / 1700 150 / 150 300 / 300 Balance -725 / -725 1345 / 1345 570 / 570 Lab / Micro Data 01/26/23 04:33 01/25/23 06:30 Labs: Laboratory Results - last 24 hr 01/25/23 17:01: POC Glucose 172 H 01/25/23 20:14: POC Glucose 167 H 01/26/23 04:33: WBC 4.9, RBC 2.81 L, Hgb 8.6 L, Hct 28.4 L, MCV 101.1 H, MCH 30.6, MCHC 30.3 L, RDW Std Deviation 51.8 H, RDW Coeff of Ben 14.1, Plt Count 264, MPV 8.9, Immature Gran % (Auto) 0.400, Neut % (Auto) 81.3 H, Lymph % (Auto)9.4 L, Canyon % (Auto) 6.3, Eos % (Auto) 2.2, Baso % (Auto) 0.4, Absolute Neuts (auto) 4.0, Absolute Lymphs (auto) 0.46 L, Nucleated RBC % 0, Differential Comment SCANNED 01/26/23 06:24: POC Glucose 176 H 01/26/23 11:49: POC Glucose 226 H Radiography Diagnostic Testing: Radiology Impression Tibia/Fibula X-Ray 01/21/23 14:00 IMPRESSION: Intraoperative digital documentation views as described. Electronically Signed: Casa Galvez MD at 13:08 EST , Physical Exam Const alert, oriented x3, no apparent distress and well nourished General Appearance: cooperative and well developed HEENT normocephalic, head/scalp atraumatic, moist oral mucous membranes and oropharynxnormal Eyes PERRL and EOMs intact bilaterally Neck no lymphadenopathy, supple and no JVD Lymph Lymphatic: no lymphadenopathy noted and no lymphedema noted Resp normal respiratory effort, normal air movement and clear to auscultation bilaterally Cardio regular rate, regular rhythm, S1 normal heart sound, S2 normal heart sound and no murmurs GI normal to inspection, nondistended, normoactive bowel sounds, soft to palpation,non-tender and non-distended Extremity normal capillary refill, no clubbing, cyanosis or edema and no calf tenderness Skin Skin Narrative: RLE wrapped in bandage General Skin Exam: no breakdown Neuro CN's II-XII intact bilaterally Coordination / Balance: [id number] test normal Motor Exam: general weakness Psych thought process normal, cooperative and affect normal Appearance: appropriate Assessment & Plan Assessment/Plan (1) Anemia: QUALIFIERS: Anemia type: due to chronic kidney disease (2) Fracture of fibula, right, closed: PLAN: Plan #Complete fracture of Right proximal tibia and fibula * 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 * RLE splinted. s/p right suprapatellar intramedullary tibial nail * PT/OT On board. Fall precautions. * on PO oxycodone, IV morphine prn for pain. * #ESRD: on HD TTS. Nephrology on board. Still makes urine #TYpe 2 diabetes mellitus: glipizide and trulicity. ISS. Accuchecks ACHS. A1C is5.8' #COPD: on breathing treatment with bronchodilators. Not in exacerbation #Chronic anemia * due to ESRD. Hb is 8.6. * #DEpression: on zoloft #GERD: on PPI #Hypertension: DVT prophylaxis: on eliquis. Charges/Coding Visit Charges Inpatient E&M: 04521 Subs Hosp L2 01/26/23 1602 <Electronically signed by Carolina Caba MD> Carolina Caba MD Cosigner Signature (if applicable): CC: ~ Signed [facility] Work Phone: [phone]) [phone] Miscellaneous Notes* Telephone Encounter - Mehreen Caldwell, GRACE - 01/26/2023 2:35 PM EST Did you want to increase dose? NOV: 03/04/23 Attached is 1.5mg Trulicity RX. [facility] Progress note Author Branden Banks [facility] January 25, 2023 1:00pm Note Date/Time January 25, 2023 9:29am [facility] Medical Records Department [address] [place] [address] Progress Note - Hospitalist 01/25/23 0929 MR#: [id number] Acct: [id number] Name: Margareth GONZALEZ Rep #:[id number] : 1965 57 From: Branden Booker PCP: Dr. Ignacio Cheatham MD Status:ADM I N Location: [place] [address] Reason for Visit Reason for Visit: Diagnoses Anemia, unspecified (01/19/23) Type 2 diabetes mellitus without complications (01/19/23) Hyperkalemia (01/19/23) Depression, unspecified (01/19/23) Anxiety disorder, unspecified (01/19/23) Essential (primary) hypertension (01/19/23) Unilateral primary osteoarthritis, right knee (01/19/23) Pathological fracture, right tibia, initial encounter for fracture (01/19/23) End stage renal disease (01/19/23) Secondary hyperparathyroidism of renal origin (01/19/23) Difficulty in walking, not elsewhere classified (01/19/23) Unspecified fracture of shaft of right fibula, initial encounter for closed fracture (01/19/23) Unspecified fracture of right lower leg, initial encounter for closed fracture (01/19/23) Personal history of other mental and behavioral disorders (01/19/23) Personal history of other diseases of the respiratory system (01/19/23) Personal history of nicotine dependence (01/19/23) Dependence on renal dialysis (01/19/23) Objective Data Objective Data Vital Signs: Vital Signs Temp Pulse Resp BP Pulse Ox O2 Del Method O2 Flow Rate 98.5 F 96 18 132/66 H 95 Room Air 2 01/25/23 06:26 01/25/23 06:26 01/25/23 06:26 01/25/23 06:26 01/25/23 06:26 01/25/23 08:15 01/22/23 08:13 Oxygen Flow Rate (L/min) 2 Oxygen Delivery Method Room Air Weight: 221 lb 5.506 oz Body Mass Index (BMI) 33.6 Intake & Output: Intake and Output for Last 24 Hours 01/23/23 01/24/23 01/25/23 23:59 23:59 23:59 Intake Total 1100 / 1100 975 / 975 Output Total 1700 / 1700 150 / 150 Balance 1100 / 1100 -725 / -725 -150 / -150 Lab / Micro Data 01/25/23 06:30 01/25/23 06:30 Labs: Laboratory Results - last 24 hr 01/24/23 13:03: POC Glucose 181 H 01/24/23 17:15: POC Glucose 184 H 01/24/23 19:44: POC Glucose 198 H 01/25/23 06:30: WBC 8.5, RBC 2.44 L, Hgb 7.5 L, Hct 24.1 L, MCV 98.8, MCH 30.7, MCHC 31.1 L, RDW Std Deviation 50.6 H, RDW Coeff of Ben 14.0, Plt Count 217, MPV9.0, Immature Gran % (Auto) 0.400, Neut % (Auto) 67.2, Lymph % (Auto) 20.0, Canyon% (Auto) 9.5, Eos % (Auto) 2.7, Baso % (Auto) 0.2, Absolute Neuts (auto) 5.7, Absolute Lymphs (auto) 1.70, Nucleated RBC % 0, Sodium 134 L, Potassium 4.6, Chloride 100, Carbon Dioxide 27.0, Anion Gap 7, BUN 47 H, Creatinine 4.70 H, Estim Creat Clear Calc 13.32, Est GFR (MDRD) Af Amer 12 L, Est GFR (MDRD) Non-Af10 L, BUN/Creatinine Ratio 10.0, Glucose 125 H, Calcium 8.4 L 01/25/23 06:32: POC Glucose 132 H Physical Exam Narrative Seen and examined. Patient does not have chest pain or shortness of breath or dizziness. She had good bowel movement yesterday. Continue stool softeners. Discussed with the paper cutter. Physical exam: General: Alert, Oriented x3, Cooperative HEENT: Atraumatic, PERRLA, EOMI, Normocephalic Oral: Oral mucosa dry. No Gingival or Mucosal Lesions/ Ulcerations Neck: Supple, No JVD, Negative Carotid Bruits Lungs: Air entry diminished in bilateral lung bases. No crepitation/rhonchi Cardiovascular: Heart rate in low 100s., Normal S1, Normal S2, No murmurs Abdomen: Bowel Sounds Present, Soft, Non Tender, Non-Distended : No renal angle tenderness. No suprapubic tenderness. Extremities: No edema, Capillary Refill Less than 3 Seconds Skin: No rashes, No breakdown Musculoskeletal: Mild tenderness on the right tibia-fibula. Dressing is dry andintact. Hannah wrap bandage on. ROM not attempted. Neurological: Cranial nerves II-XII grossly intact, DTR 2+/4. No acute focal neurological deficit. Psych/Mental Status: Flat affect. Assessment & Plan Assessment/Plan (1) Fracture of right lower extremity: QUALIFIERS: Encounter type: initial encounter Fracture type: closed Qualified Code(s): S82.91XA - Unspecified fracture of right lower leg, initial encounter for closed fracture (2) History of COPD: (3) ESRD (end stage renal disease) on dialysis: PLAN: Plan 57-year-old female was brought to ED by EMS for fall on her buttocks and her legwas tucked under her. She complains of severe pain from hip to the tip of the toes, denies numbness or tingling. CT scan of right lower extremity showed complete fracture through proximal tibia and fibular metadiaphysis with soft tissue edema. 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 On hydromorphone because of end-stage renal disease. Right lower leg splinted in ED. pending surgery consulted for surgical opinion. PT and OT on board. 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 Patient serum calcium is 8.6, phosphorus 5.9, magnesium 2.1. Vitamin D 25 and phosphorus are 83.2 and 5.4 respectively. PTH high 433. Vitamin B12 543. Discussed with the paper cutter. She started dialysis about 1 year ago her phosphate and PTH is not very high to warrant or indication of treatment. Bicarb is 26 and patient on sodium bicarbonate. As per paper cutter, phosphorusabove 600 might need treatment. 01/22: Patient had right suprapatellar intramedullary tibial nail. Found to have right pathological transverse proximal tibia extra-articular fracture. 01/23: With high risk of DVT, patient is started on low-dose Eliquis 2.5 mg, earlier she was on baby aspirin 81 mg twice daily which is discontinued. DC heparin subcu for DVT prophylaxis. Patient also has chronic constipation problem and on senna S, MiraLAX, psyllium. Patient has she did not feel like good emptying of bowel therefore Dulcolax 10 mg oral 1 dose added. 01/24: Dulcolax 10 mg 1 oral dose. 01/25: Patient bowel movement is good. Continue oral softeners and Dulcolax suppository. Plan for plan for SNF. Pre-CERT pending. #End-stage renal disease on dialysis Thursday, , Thursday: Security Consultant consulted. -Potassium very slightly elevated at 5.3, repeat potassium 5.4. Patient undergoing hemodialysis. No shortness of breath or hypoxia. 01/22: Hyperkalemia K6.0. No signs of acute hyperkalemia like tenting of T waves or widened QRS complex/sine waves on EKG. Kayexalate given. Discussed with nursing staff to inform paper cutter that patient might need dialysis. Shehad only 2.5 hours of dialysis yesterday. 01/23: Patient is still urinates about 500 mL. Potassium is normal after hyperkalemia cocktail and Kayexalate yesterday. No need for hemodialysis. Discussed with the paper cutter. 01/24: Electrolytes are in acceptable range. K5.0. #Type 2 diabetes mellitus: Glucose in BMP is 81. Serum magnesium 2.1. -Glucose checks and sliding scale insulin -Holding glipizide and Trulicity 01/23 glucose 249. Will start long-acting insulin. 01/24 glucose better controlled. 01/25: A1c 5.8% glucose 125. Good control. Chronic COPD Albuterol as needed not in exacerbation. #Chronic anemia, secondary to ESRD/chronic disease -Appears to be at baseline -01/21: Reticulocyte panel and iron work-up ordered. Patient on ferrous sulfate 325 mgdaily. Serum iron low, ferritin high 307. Iron saturation 8.2% low. Reticulocyte count, immature reticulocyte fraction normal. Overall, iron profile is suggestive of anemia of chronic disease/renal disease. We will change her ferrous sulfate to every other day. 01/22: Hemoglobin is 8.4. Stable for last 2 to 3 days. 01/23: Hemoglobin 8.1. Patient on ferrous sulfate and vitamin C. 01/24: Hemoglobin 7.8/25%. Platelet count 190,000. Only on Eliquis 2.5 mg twice daily as DVT prophylaxis patient but baby aspirin is already discontinued. Patient had epoetin geo 10,000 units yesterday #Depression -Continue Zoloft #GERD -Continue PPI #Hypertension -Continue blood pressure medications and adjust as tolerated #DVT ppx: Changed to low-dose Eliquis. Charges/Coding Visit Charges Inpatient E&M: 52410 Subs Hosp L2 01/25/23 1300 <Electronically signed by Branden Banks MD> Cosigner Signature (if applicable): CC: ~ Signed [facility] Work Phone: 1(975) 374-652611-26-2023 Progress note Author Maday perez [facility] January 25, 2023 9:52am Note Date/Time January 25, 2023 8:18am [facility] Medical Records Department [address] [place] [address] Progress Note - Nephrology 01/25/23814 MR#: [id number] Acct: [id number] Name: Margareth GONZALEZ Rep #:[id number] : 1965 57 From: Maday chan MD PCP: Dr. Ignacio Cheatham MD Status:ADM I N Location: [place] [address] Subjective Subjective Following for ESRD. The patient tolerated dialysis well yesterday. She denies current chest pain, shortness of breath, or nausea. Objective Data Objective Data Vital Signs: Vital Signs Temp Pulse Resp BP Pulse Ox O2 Del Method O2 Flow Rate 98.5 F 96 18 132/66 H 95 Room Air 2 01/25/23 06:26 01/25/23 06:26 01/25/23 06:26 01/25/23 06:26 01/25/23 06:26 01/25/23 06:26 01/22/23 08:13 Oxygen Flow Rate (L/min) 2 Oxygen Delivery Method Room Air Weight: 100.4 kg Body Mass Index (BMI) 33.6 Intake & Output: Intake and Output for Last 24 Hours 01/23/23 01/24/23 01/25/23 23:59 23:59 23:59 Intake Total 1100 / 1100 975 / 975 Output Total 1700 / 1700 150 / 150 Balance 1100 / 1100 -725 / -725 -150 / -150 Lab / Micro Data 01/25/23 06:30 01/25/23 06:30 Labs: Laboratory Results - last 24 hr 01/24/23 13:03: POC Glucose 181 H 01/24/23 17:15: POC Glucose 184 H 01/24/23 19:44: POC Glucose 198 H 01/25/23 06:30: WBC 8.5, RBC 2.44 L, Hgb 7.5 L, Hct 24.1 L, MCV 98.8, MCH 30.7, MCHC 31.1 L, RDW Std Deviation 50.6 H, RDW Coeff of Ben 14.0, Plt Count 217, MPV9.0, Immature Gran % (Auto) 0.400, Neut % (Auto) 67.2, Lymph % (Auto) 20.0, Canyon% (Auto) 9.5, Eos % (Auto) 2.7, Baso % (Auto) 0.2, Absolute Neuts (auto) 5.7, Absolute Lymphs (auto) 1.70, Nucleated RBC % 0, Sodium 134 L, Potassium 4.6, Chloride 100, Carbon Dioxide 27.0, Anion Gap 7, BUN 47 H, Creatinine 4.70 H, Estim Creat Clear Calc 13.32, Est GFR (MDRD) Af Amer 12 L, Est GFR (MDRD) Non-Af10 L, BUN/Creatinine Ratio 10.0, Glucose 125 H, Calcium 8.4 L 01/25/23 06:32: POC Glucose 132 H Physical Exam Narrative Alert awake oriented x 3 no obvious distress no pallor no icterus no JVD s1s2 no murmurs lungs clear abdomen soft no organomegaly no edema no cyanosis Assessment & Plan Assessment/Plan (1) ESRD (end stage renal disease) on dialysis: (2) Hyperkalemia: (3) Secondary hyperparathyroidism: (4) Anemia: QUALIFIERS: Anemia type: due to chronic kidney disease (5) Benign essential hypertension: PLAN: Plan Impression/Plan: The patient is a 57-year-old woman with past history of type 2 diabetes mellitus, hypertension, ESRD, osteoporosis, and hyperlipidemia. The patient presented to the hospital on 01/19/2023 after ground-level fall. She was found to have right tibial fracture and is status post right intramedullary tibial nail on 01/21/2023. Nephrology is following for ESRD and dialysis management. ESRD. The patient usually dialyzes on TTS schedule at [facility]. is her primary paper cutter. The patient is on on Thursday, Thursday, and Thursday dialysis schedule this weekbecause of hol. The patient seen during hemodialysis yesterday. She is back on her usual TTS schedule. There is no need for dialysis today. Next dialysis is scheduled for 01/27/2023. Hyperkalemia. Potassium level was 6.0 mmol/L morning of 01/22/2023. Potassium level did improve with insulin?D50 on 01/22/2023. We will use 2K dialysate today. Potassium level is better at 4.6 mmol/L today. Anemia in chronic kidney disease. Will continue JENISE with dialysis. Will give her 10,000 of Retacrit on 01/24/2023. We will monitor hemoglobin. Secondary hyperparathyroidism. PTH has been in target range at dialysis unit. Continue calcitriol. Calcium/phosphorus under control. There is no need for phosphorus binder. Recheck calcium/phosphorus next week. 01/25/23 0952 <Electronically signed by Maday Mistry MD> Cosigner Signature (if applicable): CC: ~ Signed [facility] Work Phone: 1(275) 999-923011-25-2023 Progress note Author Branden Banks [facility] January 24, 2023 12:28pm Note Date/Time January 24, 2023 12:21pm [facility] Medical Records Department [address] [place] [address] Progress Note - Hospitalist 01/24/23 1218 MR#: [id number] Acct: [id number] Name: Margareth GONZALEZ Rep #:[id number] : 1965 57 From: Branden Booker PCP: Dr. Ignacio Cheatham MD Status:ADM I N Location: [place] [address] Reason for Visit Reason for Visit: Diagnoses Anemia, unspecified (01/19/23) Type 2 diabetes mellitus without complications (01/19/23) Hyperkalemia (01/19/23) Depression, unspecified (01/19/23) Anxiety disorder, unspecified (01/19/23) Essential (primary) hypertension (01/19/23) Unilateral primary osteoarthritis, right knee (01/19/23) Pathological fracture, right tibia, initial encounter for fracture (01/19/23) End stage renal disease (01/19/23) Secondary hyperparathyroidism of renal origin (01/19/23) Difficulty in walking, not elsewhere classified (01/19/23) Unspecified fracture of shaft of right fibula, initial encounter for closed fracture (01/19/23) Unspecified fracture of right lower leg, initial encounter for closed fracture (01/19/23) Personal history of other mental and behavioral disorders (01/19/23) Personal history of other diseases of the respiratory system (01/19/23) Personal history of nicotine dependence (01/19/23) Dependence on renal dialysis (01/19/23) Objective Data Objective Data Vital Signs: Vital Signs Temp Pulse Resp BP Pulse Ox O2 Del Method O2 Flow Rate 97.9 F 97 14 135/54 H 99 Room Air 2 01/24/23 05:53 01/24/23 10:56 01/24/23 10:56 01/24/23 10:56 01/24/23 10:56 01/24/23 10:56 01/22/23 08:13 Oxygen Flow Rate (L/min) 2 Oxygen Delivery Method Room Air Weight: 227 lb 1.218 oz Body Mass Index (BMI) 34.5 Intake & Output: Intake and Output for Last 24 Hours 01/22/23 01/23/23 01/24/23 23:59 23:59 23:59 Intake Total 1220 / 1220 1100 / 1100 Output Total 200 / 200 1700 / 1700 Balance 1020 / 1020 1100 / 1100 -1700 / -1700 Lab / Micro Data 01/24/23 06:09 01/24/23 06:09 Labs: Laboratory Results - last 24 hr 01/23/23 16:37: POC Glucose 168 H 01/23/23 20:58: POC Glucose 170 H 01/24/23 06:00: POC Glucose 123 H 01/24/23 06:09: WBC 8.2, RBC 2.63 L, Hgb 7.8 L, Hct 25.6 L, MCV 97.3, MCH 29.7, MCHC 30.5 L, RDW Std Deviation 49.7 H, RDW Coeff of Ben 14.0, Plt Count 190, MPV9.1, Immature Gran % (Auto) 0.400, Neut % (Auto) 61.1, Lymph % (Auto) 25.5, Canyon% (Auto) 9.7, Eos % (Auto) 3.1, Baso % (Auto) 0.2, Absolute Neuts (auto) 5.0, Absolute Lymphs (auto) 2.08, Nucleated RBC % 0, Sodium 135 L, Potassium 5.0, Chloride 101, Carbon Dioxide 26.0, Anion Gap 8, BUN 60 H, Creatinine 5.58 H, Estim Creat Clear Calc 11.22, Est GFR (MDRD) Af Amer 10 L, Est GFR (MDRD) Non-Af8 L, BUN/Creatinine Ratio 10.8, Glucose 133 H, Calcium 8.4 L Physical Exam Narrative Seen and examined. Patient does not have chest pain or shortness of breath or dizziness. Mild abdominal discomfort probably from constipation. Patient having little bit bowel movement. Patient had little bowel movement yesterday on multiple stool softeners. She states her bowel movement is not sufficient and adequate. Discussed with the paper cutter and orthopedic surgeon. Physical exam: General: Alert, Oriented x3, Cooperative HEENT: Atraumatic, PERRLA, EOMI, Normocephalic Oral: Oral mucosa dry. No Gingival or Mucosal Lesions/ Ulcerations Neck: Supple, No JVD, Negative Carotid Bruits Lungs: Air entry diminished in bilateral lung bases. No crepitation/rhonchi Cardiovascular: Heart rate in low 100s., Normal S1, Normal S2, No murmurs Abdomen: Bowel Sounds Present, Soft, Non Tender, Non-Distended : No renal angle tenderness. No suprapubic tenderness. Extremities: No edema, Capillary Refill Less than 3 Seconds Skin: No rashes, No breakdown Musculoskeletal: Mild tenderness on the right tibia-fibula. Dressing is dry andintact. Hannah wrap bandage on. ROM not attempted. Neurological: Cranial nerves II-XII grossly intact, DTR 2+/4. No acute focal neurological deficit. Psych/Mental Status: Flat affect. Assessment & Plan Assessment/Plan (1) Fracture of right lower extremity: QUALIFIERS: Encounter type: initial encounter Fracture type: closed Qualified Code(s): S82.91XA - Unspecified fracture of right lower leg, initial encounter for closed fracture (2) History of COPD: (3) ESRD (end stage renal disease) on dialysis: PLAN: Plan 57-year-old female was brought to ED by EMS for fall on her buttocks and her legwas tucked under her. She complains of severe pain from hip to the tip of the toes, denies numbness or tingling. CT scan of right lower extremity showed complete fracture through proximal tibia and fibular metadiaphysis with soft tissue edema. 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 On hydromorphone because of end-stage renal disease. Right lower leg splinted in ED. pending surgery consulted for surgical opinion. PT and OT on board. 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 Patient serum calcium is 8.6, phosphorus 5.9, magnesium 2.1. Vitamin D 25 and phosphorus are 83.2 and 5.4 respectively. PTH high 433. Vitamin B12 543. Discussed with the paper cutter. She started dialysis about 1 year ago her phosphate and PTH is not very high to warrant or indication of treatment. Bicarb is 26 and patient on sodium bicarbonate. As per paper cutter, phosphorusabove 600 might need treatment. 01/22: Patient had right suprapatellar intramedullary tibial nail. Found to have right pathological transverse proximal tibia extra-articular fracture. 01/23: With high risk of DVT, patient is started on low-dose Eliquis 2.5 mg, earlier she was on baby aspirin 81 mg twice daily which is discontinued. DC heparin subcu for DVT prophylaxis. Patient also has chronic constipation problem and on senna S, MiraLAX, psyllium. Patient has she did not feel like good emptying of bowel therefore Dulcolax 10 mg oral 1 dose added. 01/24: Dulcolax 10 mg 1 oral dose. #End-stage renal disease on dialysis Thursday, , Thursday: Security Consultant consulted. -Potassium very slightly elevated at 5.3, repeat potassium 5.4. Patient undergoing hemodialysis. No shortness of breath or hypoxia. 01/22: Hyperkalemia K6.0. No signs of acute hyperkalemia like tenting of T waves or widened QRS complex/sine waves on EKG. Kayexalate given. Discussed with nursing staff to inform paper cutter that patient might need dialysis. Shehad only 2.5 hours of dialysis yesterday. 01/23: Patient is still urinates about 500 mL. Potassium is normal after hyperkalemia cocktail and Kayexalate yesterday. No need for hemodialysis. Discussed with the paper cutter. 01/24: Electrolytes are in acceptable range. K5.0. #Type 2 diabetes mellitus: Glucose in [facility] is 81. Serum magnesium 2.1. -Glucose checks and sliding scale insulin -Holding glipizide and Trulicity 01/23 glucose 249. Will start long-acting insulin. 01/24 glucose better controlled. Chronic COPD Albuterol as needed not in exacerbation. #Chronic anemia, secondary to ESRD/chronic disease -Appears to be at baseline -01/21: Reticulocyte panel and iron work-up ordered. Patient on ferrous sulfate 325 mgdaily. Serum iron low, ferritin high 307. Iron saturation 8.2% low. Reticulocyte count, immature reticulocyte fraction normal. Overall, iron profile is suggestive of anemia of chronic disease/renal disease. We will change her ferrous sulfate to every other day. 01/22: Hemoglobin is 8.4. Stable for last 2 to 3 days. 01/23: Hemoglobin 8.1. Patient on ferrous sulfate and vitamin C. 01/24: Hemoglobin 7.8/25%. Platelet count 190,000. Only on Eliquis 2.5 mg twice daily as DVT prophylaxis patient but baby aspirin is already discontinued. Patient had epoetin geo 10,000 units yesterday #Depression -Continue Zoloft #GERD -Continue PPI #Hypertension -Continue blood pressure medications and adjust as tolerated #DVT ppx: Changed to low-dose Eliquis. Charges/Coding Visit Charges Inpatient E&M: 14811 Subs Hosp L2 01/24/23 1228 <Electronically signed by Branden Banks MD> Cosigner Signature (if applicable): CC: ~ Signed [facility] Work Phone: 1(274) 621-148211-25-2023 Progress note Author Maday Lutz tr [facility] January 24, 2023 9:16am Note Date/Time January 24, 2023 9:16am [facility] Medical Records Department [address] [place] [address] Progress Note - Nephrology 01/24/23911 MR#: [id number] Acct: [id number] Name: Margareth GONZALEZ Rep #:[id number] 1 : 1965 57 From: Maday chan MD PCP: Dr. Ignacio Cheatham MD Status:ADM I N Location: [place] [address] Subjective Subjective Following for ESRD. Patient seen during hemodialysis treatment. She denies chest pain or shortness of breath. Objective Data Objective Data Vital Signs: Vital Signs Temp Pulse Resp BP Pulse Ox O2 Del Method O2 Flow Rate 97.9 F 96 14 122/58 H 98 Room Air 2 01/24/23 05:53 01/24/23 09:09 01/24/23 09:09 01/24/23 09:09 01/24/23 07:17 01/24/23 09:09 01/22/23 08:13 Oxygen Flow Rate (L/min) 2 Oxygen Delivery Method Room Air Weight: 105.2 kg Body Mass Index (BMI) 35.2 Intake & Output: Intake and Output for Last 24 Hours 01/22/23 01/23/23 01/24/23 23:59 23:59 23:59 Intake Total 1220 / 1220 1100 / 1100 Output Total 200 / 200 Balance 1020 / 1020 1100 / 1100 Lab / Micro Data 01/24/23 06:09 01/24/23 06:09 Labs: Laboratory Results - last 24 hr 01/23/23 11:27: POC Glucose 249 H 01/23/23 16:37: POC Glucose 168 H 01/23/23 20:58: POC Glucose 170 H 01/24/23 06:00: POC Glucose 123 H 01/24/23 06:09: WBC 8.2, RBC 2.63 L, Hgb 7.8 L, Hct 25.6 L, MCV 97.3, MCH 29.7, MCHC 30.5 L, RDW Std Deviation 49.7 H, RDW Coeff of Ben 14.0, Plt Count 190, MPV9.1, Immature Gran % (Auto) 0.400, Neut % (Auto) 61.1, Lymph % (Auto) 25.5, Canyon% (Auto) 9.7, Eos % (Auto) 3.1, Baso % (Auto) 0.2, Absolute Neuts (auto) 5.0, Absolute Lymphs (auto) 2.08, Nucleated RBC % 0, Sodium 135 L, Potassium 5.0, Chloride 101, Carbon Dioxide 26.0, Anion Gap 8, BUN 60 H, Creatinine 5.58 H, Estim Creat Clear Calc 11.22, Est GFR (MDRD) Af Amer 10 L, Est GFR (MDRD) Non-Af8 L, BUN/Creatinine Ratio 10.8, Glucose 133 H, Calcium 8.4 L Physical Exam Narrative Alert awake oriented x 3 no obvious distress no pallor no icterus no JVD s1s2 no murmurs lungs clear abdomen soft no organomegaly no edema no cyanosis Assessment & Plan Assessment/Plan (1) ESRD (end stage renal disease) on dialysis: (2) Hyperkalemia: (3) Secondary hyperparathyroidism: (4) Anemia: QUALIFIERS: Anemia type: due to chronic kidney disease (5) Benign essential hypertension: PLAN: Plan Impression/Plan: The patient is a 57-year-old woman with past history of type 2 diabetes mellitus, hypertension, ESRD, osteoporosis, and hyperlipidemia. The patient presented to the hospital on 01/19/2023 after ground-level fall. She was found to have right tibial fracture and is status post right intramedullary tibial nail on 01/21/2023. Nephrology is following for ESRD and dialysis management. ESRD. The patient usually dialyzes on TTS schedule at [facility]. is her primary paper cutter. The patient is on on Thursday, Thursday, and Thursday dialysis schedule this weekbecause of . The patient seen during hemodialysis today. She is back on her usual TTS schedule. We are dialyzing her with 2K dialysate today. We will try to take off 2 L with ultrafiltration. So far, the patient is tolerating dialysis. Hyperkalemia. Potassium level was 6.0 mmol/L morning of 01/22/2023. Potassium level did improve with insulin?D50. We will use 2K dialysate today. Recheck serum potassium again tomorrow. Anemia in chronic kidney disease. Will continue JENISE with dialysis. Will give her 10,000 of Retacrit today. Secondary hyperparathyroidism. PTH has been in target range at dialysis unit. Continue calcitriol. Check calcium/phosphorus under control. There is no need for phosphorus binder. Recheck calcium/phosphorus next week. 01/24/23 0916 <Electronically signed by Maday Mistry MD> Cosigner Signature (if applicable): CC: ~ Signed [facility] Work Phone: [phone]) 832-369011-24-2023 Progress note Author Branden Banks [facility] January 23, 2023 12:25pm Note Date/Time January 23, 2023 12:25pm [facility] Medical Records Department [address] [place] [address] Progress Note - Hospitalist 01/23/23 1203 MR#: [id number] Acct: [id number] Name: Margareth GONZALEZ Rep #:[id number] : 1965 57 From: Branden Booker PCP: Dr. Ignacio Cheatham MD Status:ADM I N Location: [place] [address] Reason for Visit Reason for Visit: Diagnoses Type 2 diabetes mellitus without complications (01/19/23) Hyperkalemia (01/19/23) Depression, unspecified (01/19/23) Anxiety disorder, unspecified (01/19/23) Essential (primary) hypertension (01/19/23) Unilateral primary osteoarthritis, right knee (01/19/23) Pathological fracture, right tibia, initial encounter for fracture (01/19/23) End stage renal disease (01/19/23) Secondary hyperparathyroidism of renal origin (01/19/23) Difficulty in walking, not elsewhere classified (01/19/23) Unspecified fracture of shaft of right fibula, initial encounter for closed fracture (01/19/23) Unspecified fracture of right lower leg, initial encounter for closed fracture (01/19/23) Personal history of other mental and behavioral disorders (01/19/23) Personal history of other diseases of the respiratory system (01/19/23) Personal history of nicotine dependence (01/19/23) Dependence on renal dialysis (01/19/23) Objective Data Objective Data Vital Signs: Vital Signs Temp Pulse Resp BP Pulse Ox O2 Del Method O2 Flow Rate 98.4 F 110 H 18 135/79 H 95 Room Air 2 01/23/23 09:31 01/23/23 09:31 01/23/23 09:31 01/23/23 09:31 01/23/23 09:31 01/23/23 09:31 01/22/23 08:13 Oxygen Flow Rate (L/min) 2 Oxygen Delivery Method Room Air Weight: 224 lb 13.944 oz Body Mass Index (BMI) 34.2 Intake & Output: Intake and Output for Last 24 Hours 01/21/23 01/22/23 01/23/23 23:59 23:59 23:59 Intake Total 650 / 1010 1220 / 1220 Output Total 700 / 700 200 / 200 Balance -50 / 310 1020 / 1020 Lab / Micro Data 01/23/23 04:50 01/23/23 04:50 Labs: Laboratory Results - last 24 hr 01/22/23 13:50: Sodium 133 L, Potassium 4.9, Chloride 100, Carbon Dioxide 25.0, Anion Gap 8, BUN 56 H, Creatinine 5.01 H, Estim Creat Clear Calc 12.50, Est GFR (MDRD) Af Amer 11 L, Est GFR (MDRD) Non-Af 9 L, BUN/Creatinine Ratio 11.2, Glucose 179 H, Calcium 8.5 01/22/23 16:05: POC Glucose 144 H 01/22/23 22:45: POC Glucose 195 H 01/23/23 04:50: WBC 7.0, RBC 2.71 L, Hgb 8.1 L, Hct 27.0 L, MCV 99.6 H, MCH 29.9, MCHC 30.0 L, RDW Std Deviation 50.3 H, RDW Coeff of Ben 13.7, Plt Count 195, MPV 9.5, Immature Gran % (Auto) 0.400, Neut % (Auto) 71.5 H, Lymph % (Auto)16.9 L, Canyon % (Auto) 9.3, Eos % (Auto) 1.6, Baso % (Auto) 0.3, Absolute Neuts (auto) 5.0, Absolute Lymphs (auto) 1.18, Nucleated RBC % 0, Sodium 134 L, Potassium 4.8, Chloride 100, Carbon Dioxide 26.0, BUN 51 H, Creatinine 5.11 H, Estim Creat Clear Calc 12.25, Est GFR (MDRD) Af Amer 11 L, Est GFR (MDRD) Non-Af9 L, BUN/Creatinine Ratio 10.0, Glucose 120 H, Calcium 8.4 L, Phosphorus 4.6, Albumin 2.3 L 01/23/23 06:39: POC Glucose 135 H 01/23/23 11:27: POC Glucose 249 H Physical Exam Narrative Seen and examined. Patient does not have chest pain or shortness of breath or dizziness. Mild abdominal discomfort probably from constipation. Patient had little bowel movement yesterday on multiple stool softeners. Discussed with the nephrologistand orthopedic surgeon. Physical exam: General: Alert, Oriented x3, Cooperative HEENT: Atraumatic, PERRLA, EOMI, Normocephalic Oral: No Gingival or Mucosal Lesions/ Ulcerations Neck: Supple, No JVD, Negative Carotid Bruits Lungs: Air entry diminished in bilateral lung bases. No crepitation/rhonchi Cardiovascular: Heart rate in low 100s., Normal S1, Normal S2, No murmurs Abdomen: Bowel Sounds Present, Soft, Non Tender, Non-Distended : No renal angle tenderness. No suprapubic tenderness. Extremities: No edema, Capillary Refill Less than 3 Seconds Skin: No rashes, No breakdown Musculoskeletal: Mild tenderness on the right tibia-fibula. Dressing is dry andintact. Hannah wrap bandage on. ROM not attempted. Neurological: Cranial nerves II-XII grossly intact, DTR 2+/4. No acute focal neurological deficit. Psych/Mental Status: Flat affect. Assessment & Plan Assessment/Plan (1) Fracture of right lower extremity: QUALIFIERS: Encounter type: initial encounter Fracture type: closed Qualified Code(s): S82.91XA - Unspecified fracture of right lower leg, initial encounter for closed fracture (2) History of COPD: (3) ESRD (end stage renal disease) on dialysis: PLAN: Plan 57-year-old female was brought to ED by EMS for fall on her buttocks and her legwas tucked under her. She complains of severe pain from hip to the tip of the toes, denies numbness or tingling. CT scan of right lower extremity showed complete fracture through proximal tibia and fibular metadiaphysis with soft tissue edema. 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 On hydromorphone because of end-stage renal disease. Right lower leg splinted in ED. pending surgery consulted for surgical opinion. PT and OT on board. 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 Patient serum calcium is 8.6, phosphorus 5.9, magnesium 2.1. Vitamin D 25 and phosphorus are 83.2 and 5.4 respectively. PTH high 433. Vitamin B12 543. Discussed with the paper cutter. She started dialysis about 1 year ago her phosphate and PTH is not very high to warrant or indication of treatment. Bicarb is 26 and patient on sodium bicarbonate. As per paper cutter, phosphorusabove 600 might need treatment. 01/22: Patient had right suprapatellar intramedullary tibial nail. Found to have right pathological transverse proximal tibia extra-articular fracture. 01/23: With high risk of DVT, patient is started on low-dose Eliquis 2.5 mg, earlier she was on baby aspirin 81 mg twice daily which is changed to once dailyher home dose. DC heparin subcu for DVT prophylaxis. Patient also has chronic constipation problem and on senna S, MiraLAX, psyllium. Patient has she did notfeel like good emptying of bowel therefore Dulcolax 10 mg oral 1 dose added. #End-stage renal disease on dialysis Thursday, , Thursday: Security Consultant consulted. -Potassium very slightly elevated at 5.3, repeat potassium 5.4. Patient undergoing hemodialysis. No shortness of breath or hypoxia. 01/22: Hyperkalemia K6.0. No signs of acute hyperkalemia like tenting of T waves or widened QRS complex/sine waves on EKG. Kayexalate given. Discussed with nursing staff to inform paper cutter that patient might need dialysis. Shehad only 2.5 hours of dialysis yesterday. 01/23: Patient is still urinates about 500 mL. Potassium is normal after hyperkalemia cocktail and Kayexalate yesterday. No need for hemodialysis. Discussed with the paper cutter. #Type 2 diabetes mellitus: Glucose in BMP is 81. Serum magnesium 2.1. -Glucose checks and sliding scale insulin -Holding glipizide and Trulicity 01/23 glucose 249. Will start long-acting insulin. Chronic COPD Albuterol as needed not in exacerbation. #Chronic anemia, secondary to ESRD/chronic disease -Appears to be at baseline -01/21: Reticulocyte panel and iron work-up ordered. Patient on ferrous sulfate 325 mgdaily. Serum iron low, ferritin high 307. Iron saturation 8.2% low. Reticulocyte count, immature reticulocyte fraction normal. Overall, iron profile is suggestive of anemia of chronic disease/renal disease. We will change her ferrous sulfate to every other day. 01/22: Hemoglobin is 8.4. Stable for last 2 to 3 days. 01/23: Hemoglobin 8.1. Patient on ferrous sulfate and vitamin C. #Depression -Continue Zoloft #GERD -Continue PPI #Hypertension -Continue blood pressure medications and adjust as tolerated #DVT ppx: Changed to low-dose Eliquis. Charges/Coding Visit Charges Inpatient E&M: 93887 Subs Hosp L2 01/23/23 8868 <Electronically signed by Branden Banks MD> Cosigner Signature (if applicable): CC: ~ Signed [facility] Work Phone: 1([phone]) 100-987511-24-2023 Progress note Author Deshawn Tucker [facility] January 23, 2023 10:15am Note Date/Time January 23, 2023 10:16am [facility] Medical Records Department [address] [place] [address] Progress Note - Orthopedic 01/23/23 1011 MR#: [id number] Acct: [id number] Name: Margareth GONZALEZ Rep #:[id number] : 1965 57 From: Deshawn Booker PCP: Dr. Ignacio Cehatham MD Status:ADM I N Location: [place] [address] Subjective Subjective Patient reports she is doing well overall. No acute events overnight. She doesreport some abdominal pain in relation to constipation additionally she reports increased postoperative pain today. Her heart rate has been around 100 recentlyat 110-115. I did specifically question her about chest pain or shortness of breath which she denies at this time. Lower extremity does have pain as expected from surgery. Patient's oxygen saturation remained stable on room air. Objective Data Objective Data Vital Signs: Vital Signs Temp Pulse Resp BP Pulse Ox O2 Del Method O2 Flow Rate 98.4 F 110 H 18 135/79 H 95 Room Air 2 01/23/23 09:31 01/23/23 09:31 01/23/23 09:31 01/23/23 09:31 01/23/23 09:31 01/23/23 09:31 01/22/23 08:13 Oxygen Flow Rate (L/min) 2 Oxygen Delivery Method Room Air Weight: 224 lb 13.944 oz Body Mass Index (BMI) 34.2 Intake & Output: Intake and Output for Last 24 Hours 01/21/23 01/22/23 01/23/23 23:59 23:59 23:59 Intake Total 650 / 1010 1220 / 1220 Output Total 700 / 700 200 / 200 Balance -50 / 310 1020 / 1020 Lab / Micro Data Attestation: I reviewed the patient's lab results. 01/23/23 04:50 01/23/23 04:50 Labs: Laboratory Results - last 24 hr 01/22/23 11:07: POC Glucose 201 H 01/22/23 13:50: Sodium 133 L, Potassium 4.9, Chloride 100, Carbon Dioxide 25.0, Anion Gap 8, BUN 56 H, Creatinine 5.01 H, Estim Creat Clear Calc 12.50, Est GFR (MDRD) Af Amer 11 L, Est GFR (MDRD) Non-Af 9 L, BUN/Creatinine Ratio 11.2, Glucose 179 H, Calcium 8.5 01/22/23 16:05: POC Glucose 144 H 01/22/23 22:45: POC Glucose 195 H 01/23/23 04:50: WBC 7.0, RBC 2.71 L, Hgb 8.1 L, Hct 27.0 L, MCV 99.6 H, MCH 29.9, MCHC 30.0 L, RDW Std Deviation 50.3 H, RDW Coeff of Ben 13.7, Plt Count 195, MPV 9.5, Immature Gran % (Auto) 0.400, Neut % (Auto) 71.5 H, Lymph % (Auto)16.9 L, Canyon % (Auto) 9.3, Eos % (Auto) 1.6, Baso % (Auto) 0.3, Absolute Neuts (auto) 5.0, Absolute Lymphs (auto) 1.18, Nucleated RBC % 0, Sodium 134 L, Potassium 4.8, Chloride 100, Carbon Dioxide 26.0, BUN 51 H, Creatinine 5.11 H, Estim Creat Clear Calc 12.25, Est GFR (MDRD) Af Amer 11 L, Est GFR (MDRD) Non-Af9 L, BUN/Creatinine Ratio 10.0, Glucose 120 H, Calcium 8.4 L, Phosphorus 4.6, Albumin 2.3 L 01/23/23 06:39: POC Glucose 135 H Physical Exam Const alert, oriented x3, no apparent distress and well nourished General Appearance: cooperative and comfortable Resp normal respiratory effort Extremity Extremity Narrative: Right lower extremity: Splint and dressing are in place clean dry and intact. Patient able to wiggle digits. All digits are warm and pink with brisk cap refill. Sensations intact light touch superficial peroneal deep peroneal and tibial nerve distributions. Assessment & Plan Assessment/Plan (1) Pathological fracture, right tibia, initial encounter for fracture: PLAN: Postop day 2 right intramedullary tibial nail. 1. DVT prophylaxis: Risk of DVTs and PEs were discussed the patient. Patient has significant renal disease she tolerates aspirin on a regular basis. I recommended we increase her dose to 1 baby aspirin twice a day. Patient was counseled on symptoms consistent with DVT and PE. After discussion of risk-benefit ratio all parties have agreed to proceed with DVT prophylaxis of 1 baby aspirin twice a day. 2. Pain control: Per primary service. Patient doing well with minimal narcotics in the last 24 hours. 3. Therapy: Patient has nonweightbearing restriction on the right lower extremity for 2 weeks however, at this time would not restrict any activity thatcan be tolerated with nonweightbearing on the right lower extremity. 4. Tachypnea: Patient typically runs around 100. Slightly increased today. Did discuss with the patient other signs and symptoms of pulmonary embolus. At this time patient does not demonstrate these other signs and symptoms additionally heart rate may be increased in relation to slight increase in pain today. Will discuss with the primary team. I also discussed with nurse. If patient does demonstrate any oxygenation changes or complaints of chest pain or shortness of breath recommended further workup for pulmonary embolus. Disposition: Patient stable from orthopedic standpoint recommend follow-up in 2 weeks for suture removal, splint removal and advancement of care. Plan is to increase weightbearing on the right lower extremity in 2 weeks. After history of these transverse fractures was discussed the patient as well as stimulation of bone healing with weightbearing. Patient demonstrates understanding and is agreeable with current treatment plan. When she is medically stable she should be ready for discharge. Please call orthopedics with any further questions or concerns. [facility] Office: 01/23/23 1015 <Electronically signed by Deshawn Tucker MD> Cosigner Signature (if applicable): CC: ~ Signed [facility] Work Phone: [phone]) 377-774511-23-2023 Progress note Author Maday Lutz tr [facility] January 22, 2023 6:33pm Note Date/Time January 22, 2023 6:33pm [facility] Medical Records Department [address] [place] [address] Progress Note - Nephrology 01/22/23 1821 MR#: [id number] Acct: [id number] Name: Margareth GONZALEZ Rep #:[id number] : 1965 57 From: Maday chan MD PCP: Dr. Ignacio Cheatham MD Status:ADM I N Location: [place] [address] Subjective Subjective Following for ESRD. Objective Data Objective Data Vital Signs: Vital Signs Temp Pulse Resp BP Pulse Ox O2 Del Method O2 Flow Rate 97.6 F L 99 18 146/69 H 98 Room Air 2 01/22/23 14:31 01/22/23 14:31 01/22/23 14:31 01/22/23 14:31 01/22/23 14:31 01/22/23 14:31 01/22/23 08:13 Oxygen Flow Rate (L/min) 2 Oxygen Delivery Method Room Air Weight: 100.6 kg Body Mass Index (BMI) 33.7 Intake & Output: Intake and Output for Last 24 Hours 01/20/23 01/21/23 01/22/23 23:59 23:59 23:59 Intake Total 550 / 550 650 / 1010 1220 / 1220 Output Total 1650 / 1950 700 / 700 200 / 200 Balance -1100 / -1400 -50 / 310 1020 / 1020 Lab / Micro Data 01/22/23 05:30 01/22/23 13:50 Labs: Laboratory Results - last 24 hr 01/21/23 21:41: POC Glucose 155 H 01/22/23 05:30: WBC 4.7, RBC 2.72 L, Hgb 8.4 L, Hct 27.7 L, MCV 101.8 H, MCH 30.9, MCHC 30.3 L, RDW Std Deviation 52.0 H, RDW Coeff of Ben 13.8, Plt Count 161, MPV 9.5, Sodium 134 L, Potassium 6.0 H*, Chloride 104, Carbon Dioxide 23.0,Anion Gap 7, BUN 50 H, Creatinine 4.75 H, Estim Creat Clear Calc 13.18, Est GFR (MDRD) Af Amer 12 L, Est GFR (MDRD) Non-Af 10 L, BUN/Creatinine Ratio 10.5, Glucose 159 H, Calcium 8.6 01/22/23 06:38: POC Glucose 140 H 01/22/23 11:07: POC Glucose 201 H 01/22/23 13:50: Sodium 133 L, Potassium 4.9, Chloride 100, Carbon Dioxide 25.0, Anion Gap 8, BUN 56 H, Creatinine 5.01 H, Estim Creat Clear Calc 12.50, Est GFR (MDRD) Af Amer 11 L, Est GFR (MDRD) Non-Af 9 L, BUN/Creatinine Ratio 11.2, Glucose 179 H, Calcium 8.5 01/22/23 16:05: POC Glucose 144 H Physical Exam Narrative Alert awake oriented x 3 no obvious distress no pallor no icterus no JVD s1s2 no murmurs lungs clear abdomen soft no organomegaly no edema no cyanosis Assessment & Plan Assessment/Plan (1) ESRD (end stage renal disease) on dialysis: (2) Hyperkalemia: (3) Secondary hyperparathyroidism: (4) Benign essential hypertension: PLAN: Plan Impression/Plan: The patient is a 57-year-old woman with past history of type 2 diabetes mellitus, hypertension, ESRD, osteoporosis, and hyperlipidemia. The patient presented to the hospital on 01/19/2023 after ground-level fall. She was found to have right tibial fracture and is status post right intramedullary tibial nail on 01/21/2023. Nephrology is following for ESRD and dialysis management. ESRD. The patient usually dialyzes on TTS schedule at [facility]. is her primary paper cutter. The patient is on on Thursday, Thursday, and Thursday dialysis schedule this weekbecause of . The patient did get partial dialysis yesterday. There is no need for dialysis today. She did get temporizing measure for hyperkalemia earlier today. We will recheckpotassium level again tomorrow morning to determine if she needs extra session of dialysis prior to his scheduled dialysis on 01/24/2023. Hyperkalemia. Potassium level was 6.0 mmol/L this morning. Potassium level did improve with insulin?D50. As discussed above, we will recheck potassium level tomorrow morning. If potassium level exceeds 5.5 mmol/L again, I will dialyze her tomorrow in addition to scheduled dialysis on 01/24/2023. Secondary hyperparathyroidism. PTH has been in target range at dialysis unit. Continue calcitriol. Check calcium/phosphorus tomorrow. The patient is currently not on any phosphorus binder. 01/22/23 183 <Electronically signed by Maday Mistry MD> Cosigner Signature (if applicable): CC: ~ Signed [facility] Work Phone: [phone]) 151-488411-23-2023 Progress note Author Branden Banks [facility] January 22, 2023 2:21pm Note Date/Time January 22, 2023 2:04pm [facility] Medical Records Department [address] [place] [address] Progress Note - Hospitalist 01/22/23 1356 MR#: [id number] Acct: [id number] Name: Margareth GONZALEZ Rep #:[id number] : 1965 57 From: Branden Booker PCP: Dr. Ignacio Cheatham MD Status:ADM I N Location: [place] [address] Reason for Visit Reason for Visit: Diagnoses Type 2 diabetes mellitus without complications (01/19/23) Depression, unspecified (01/19/23) Anxiety disorder, unspecified (01/19/23) Essential (primary) hypertension (01/19/23) Unilateral primary osteoarthritis, right knee (01/19/23) Pathological fracture, right tibia, initial encounter for fracture (01/19/23) End stage renal disease (01/19/23) Difficulty in walking, not elsewhere classified (01/19/23) Unspecified fracture of shaft of right fibula, initial encounter for closed fracture (01/19/23) Unspecified fracture of right lower leg, initial encounter for closed fracture (01/19/23) Personal history of other mental and behavioral disorders (01/19/23) Personal history of other diseases of the respiratory system (01/19/23) Personal history of nicotine dependence (01/19/23) Dependence on renal dialysis (01/19/23) Objective Data Objective Data Vital Signs: Vital Signs Temp Pulse Resp BP Pulse Ox O2 Del Method O2 Flow Rate 97.7 F L 97 18 136/63 H 96 Nasal Cannula 2 01/22/23 08:13 01/22/23 08:13 01/22/23 08:13 01/22/23 08:13 01/22/23 08:13 01/22/23 08:21 01/22/23 08:13 Oxygen Flow Rate (L/min) 2 Oxygen Delivery Method Nasal Cannula Weight: 221 lb 12.56 oz Body Mass Index (BMI) 33.7 Intake & Output: Intake and Output for Last 24 Hours 01/20/23 01/21/23 01/22/23 23:59 23:59 23:59 Intake Total 550 / 550 650 / 1010 820 / 820 Output Total 1650 / 1950 700 / 700 200 / 200 Balance -1100 / -1400 -50 / 310 620 / 620 Lab / Micro Data 01/22/23 05:30 01/22/23 05:30 Labs: Laboratory Results - last 24 hr 01/21/23 16:57: POC Glucose 112 H 01/21/23 21:41: POC Glucose 155 H 01/22/23 05:30: WBC 4.7, RBC 2.72 L, Hgb 8.4 L, Hct 27.7 L, MCV 101.8 H, MCH 30.9, MCHC 30.3 L, RDW Std Deviation 52.0 H, RDW Coeff of Ben 13.8, Plt Count 161, MPV 9.5, Sodium 134 L, Potassium 6.0 H*, Chloride 104, Carbon Dioxide 23.0,Anion Gap 7, BUN 50 H, Creatinine 4.75 H, Estim Creat Clear Calc 13.18, Est GFR (MDRD) Af Amer 12 L, Est GFR (MDRD) Non-Af 10 L, BUN/Creatinine Ratio 10.5, Glucose 159 H, Calcium 8.6 01/22/23 06:38: POC Glucose 140 H 01/22/23 11:07: POC Glucose 201 H Radiography Diagnostic Testing: Radiology Impression Tibia/Fibula X-Ray 01/21/23 16:45 IMPRESSION: Status post orthopedic fixation, as above. Electronically Signed: Amado Neil MD (Brooks) at 17:06 EST , Physical Exam Narrative Seen and examined. Patient had intramedullary nailing of tibia done yesterday. Patient has mild pain. Hyperkalemia, K6.0. Twelve-lead EKG done shows normal sinus rhythm, no hyperacute T waves. Kayexalate given. Discussed with her and the paper cutter regarding metabolic bone disease. Patient states her legs gave out on walking on plain ground/floor, trivial fall resulting into fracture. Not on the stairs. Did not feel dizziness headache, diplopia or syncope. Physical exam: General: Alert, Oriented x3, Cooperative HEENT: Atraumatic, PERRLA, EOMI, Normocephalic Oral: No Gingival or Mucosal Lesions/ Ulcerations Neck: Supple, No JVD, Negative Carotid Bruits Lungs: Air entry diminished in bilateral lung bases. No crepitation/rhonchi Cardiovascular: Regular rate, Regular Rhythm, Normal S1, Normal S2, No murmurs Abdomen: Bowel Sounds Present, Soft, Non Tender, Non-Distended : No renal angle tenderness. No suprapubic tenderness. Extremities: No edema, Capillary Refill Less than 3 Seconds Skin: No rashes, No breakdown Musculoskeletal: Mild tenderness on the right tibia-fibula. Dressing is dry andintact. Hannah wrap bandage. ROM not attempted. Neurological: Cranial nerves II-XII grossly intact, DTR 2+/4. No acute focal neurological deficit. Psych/Mental Status: Flat affect. Assessment & Plan Assessment/Plan (1) Fracture of right lower extremity: QUALIFIERS: Encounter type: initial encounter Fracture type: closed Qualified Code(s): S82.91XA - Unspecified fracture of right lower leg, initial encounter for closed fracture (2) History of COPD: (3) ESRD (end stage renal disease) on dialysis: PLAN: Plan 57-year-old female was brought to ED by EMS for fall on her buttocks and her legwas tucked under her. She complains of severe pain from hip to the tip of the toes, denies numbness or tingling. CT scan of right lower extremity showed complete fracture through proximal tibia and fibular metadiaphysis with soft tissue edema. 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 On hydromorphone because of end-stage renal disease. Right lower leg splinted in ED. pending surgery consulted for surgical opinion. PT and OT on board. 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 Patient serum calcium is 8.6, phosphorus 5.9, magnesium 2.1. Vitamin D 25 and phosphorus are 83.2 and 5.4 respectively. PTH high 433. Vitamin B12 543. Discussed with the paper cutter. She started dialysis about 1 year ago her phosphate and PTH is not very high to warrant or indication of treatment. Bicarb is 26 and patient on sodium bicarbonate. As per paper cutter, phosphorusabove 600 might need treatment. 01/22: Patient had right suprapatellar intramedullary tibial nail. Found to have right pathological transverse proximal tibia extra-articular fracture. #End-stage renal disease on dialysis Thursday, , Thursday: Security Consultant consulted. -Potassium very slightly elevated at 5.3, repeat potassium 5.4. Patient undergoing hemodialysis. No shortness of breath or hypoxia. 01/22: Hyperkalemia K6.0. No signs of acute hyperkalemia like tenting of T waves or widened QRS complex/sine waves on EKG. Kayexalate given. Discussed with nursing staff to inform paper cutter that patient might need dialysis. Shehad only 2.5 hours of dialysis yesterday. #Type 2 diabetes mellitus: Glucose in BMP is 81. Serum magnesium 2.1. -Glucose checks and sliding scale insulin -Holding glipizide and Trulicity Chronic COPD Albuterol as needed not in exacerbation. #Chronic anemia, secondary to ESRD/chronic disease -Appears to be at baseline -01/21: Reticulocyte panel and iron work-up ordered. Patient on ferrous sulfate 325 mgdaily. Serum iron low, ferritin high 307. Iron saturation 8.2% low. Reticulocyte count, immature reticulocyte fraction normal. Overall, iron profile is suggestive of anemia of chronic disease/renal disease. We will change her ferrous sulfate to every other day. 01/22: Hemoglobin is 8.4. Stable for last 2 to 3 days. #Depression -Continue Zoloft #GERD -Continue PPI #Hypertension -Continue blood pressure medications and adjust as tolerated #DVT ppx: Heparin subcu Charges/Coding Visit Charges Inpatient E&M: 66560 Subs Hosp L2 01/22/23 1404 <Electronically signed by Branden Banks MD> Cosigner Signature (if applicable): CC: ~ Signed ADDENDUM by Dr. Branden Banks MD on 01/22/23 at 1421 Addendum Hyperkalemia: Security Consultant was informed. Hyperkalemia cocktail ordered per paper cutter. Repeat potassium to see any decrease and then will decide about the further plan. 01/22/23 1421<Electronically signed by Branden Banks MD> Cosigner Signature (if applicable): cc: ~* Signed [facility] Work Phone: [phone]) 322-728211-23-2023 Progress note Author Deshawn Tucker [facility] January 22, 2023 8:30am Note Date/Time January 22, 2023 8:30am [facility] Medical Records Department [address] [place] [address] Progress Note - Orthopedic 01/22/23823 MR#: [id number] Acct: [id number] Name: Margareth GONZALEZ Rep #:[id number] : 1965 57 From: Deshawn Booker PCP: Dr. Ignacio Cheatham MD Status:ADM I N Location: [place] [address] Subjective Subjective 57-year-old female postop day 1 status post right intramedullary tibial nail with suprapatellar approach. Patient is doing well. She is using Tylenol for pain per the chart. Pain is reported at 3 out of 10. She has tenderness aroundthe fracture site still. She is able to wiggle her toes. She seems increasingly comfortable from yesterday prior to surgery. No acute events overnight patient has had some constipation which primary service is treating. Did have some postanesthesia effects which improved this morning. Objective Data Objective Data Vital Signs: Vital Signs Temp Pulse Resp BP Pulse Ox O2 Del Method O2 Flow Rate 97.7 F L 97 18 136/63 H 96 Nasal Cannula 2 01/22/23 08:13 01/22/23 08:13 01/22/23 08:13 01/22/23 08:13 01/22/23 08:13 01/22/23 08:21 01/22/23 08:13 Oxygen Flow Rate (L/min) 2 Oxygen Delivery Method Nasal Cannula Weight: 221 lb 12.56 oz Body Mass Index (BMI) 33.7 Intake & Output: Intake and Output for Last 24 Hours 01/20/23 01/21/23 01/22/23 23:59 23:59 23:59 Intake Total 550 / 550 650 / 1010 770 / 770 Output Total 1650 / 1950 700 / 700 200 / 200 Balance -1100 / -1400 -50 / 310 570 / 570 Lab / Micro Data Attestation: I reviewed the patient's lab results. 01/22/23 05:30 01/22/23 05:30 Labs: Laboratory Results - last 24 hr 01/21/23 06:00: Retic Count 1.09, Immature Retic Fraction 9.80, Retic Hgb Equivalent 32.9, Phosphorus 5.4 H, Iron 21 L, TIBC 256, Iron Saturation 8.2 L, Ferritin 307 H, Vitamin B12 543, Vitamin D 25-Hydroxy 83.2 01/21/23 12:58: POC Glucose 79 01/21/23 13:07: Potassium 4.5 01/21/23 16:57: POC Glucose 112 H 01/21/23 21:41: POC Glucose 155 H 01/22/23 05:30: WBC 4.7, RBC 2.72 L, Hgb 8.4 L, Hct 27.7 L, MCV 101.8 H, MCH 30.9, MCHC 30.3 L, RDW Std Deviation 52.0 H, RDW Coeff of Ben 13.8, Plt Count 161, MPV 9.5, Sodium 134 L, Potassium 6.0 H*, Chloride 104, Carbon Dioxide 23.0,Anion Gap 7, BUN 50 H, Creatinine 4.75 H, Estim Creat Clear Calc 13.18, Est GFR (MDRD) Af Amer 12 L, Est GFR (MDRD) Non-Af 10 L, BUN/Creatinine Ratio 10.5, Glucose 159 H, Calcium 8.6 01/22/23 06:38: POC Glucose 140 H Radiography Diagnostic Testing: Radiology Impression Tibia/Fibula X-Ray 01/21/23 16:45 IMPRESSION: Status post orthopedic fixation, as above. Electronically Signed: Amado Neil MD (Brooks) at 17:06 EST , Physical Exam Const alert, oriented x3 and no apparent distress Extremity Extremity Narrative: Right lower extremity: Patient is in a splint splint shows no saturation. Well-padded. Sensations intact light touch deep peroneal nerve, superficial peronealnerve and tibial nerve distributions were foot is accessible. Digits are warm and pink with brisk cap refill. Patient able to wiggle all digits without severe pain. Compartments palpated through the splint are soft and compressible. Moderate tenderness with compression. Assessment & Plan Assessment/Plan (1) Pathological fracture, right tibia, initial encounter for fracture: PLAN: Postop day 1 right intramedullary tibial nail. 1. DVT prophylaxis: Risk of DVTs and PEs were discussed the patient. Patient has significant renal disease she tolerates aspirin on a regular basis. I recommended we increase her dose to 1 baby aspirin twice a day. Patient was counseled on symptoms consistent with DVT and PE. After discussion of risk-benefit ratio all parties have agreed to proceed with DVT prophylaxis of 1 baby aspirin twice a day. 2. Pain control: Per primary service. Patient doing well with minimal narcotics in the last 24 hours. 3. Therapy: Patient has nonweightbearing restriction on the right lower extremity for 2 weeks however, at this time would not restrict any activity thatcan be tolerated with nonweightbearing on the right lower extremity. 4. Disposition: Patient stable from orthopedic standpoint recommend follow-up in 2 weeks for suture removal, splint removal and advancement of care. Plan is to increase weightbearing on the right lower extremity in 2 weeks. After history of these transverse fractures was discussed the patient as well as stimulation of bone healing with weightbearing. Patient demonstrates understanding and is agreeable with current treatment plan. When she is medically stable she should be ready for discharge. Please call orthopedics with any further questions or concerns. [facility] Office: 01/22/23829 <Electronically signed by Deshawn Tucker MD> Cosigner Signature (if applicable): CC: ~ Signed [facility] Work Phone: [phone]) 140-664711-22-2023 Progress note Author Branden Banks [facility] January 21, 2023 3:10pm Note Date/Time January 21, 2023 8:32am [facility] Medical Records Department [address] [place] [address] Progress Note - Hospitalist 01/21/23828 MR#: [id number] Acct: [id number] Name: Margareth GONZALEZ Rep #:[id number] : 1965 57 From: Branden Booker PCP: Dr. Ignacio Cheatham MD Status:ADM I N Location: [place] [address] Reason for Visit Reason for Visit: Diagnoses Type 2 diabetes mellitus without complications (01/19/23) Depression, unspecified (01/19/23) Anxiety disorder, unspecified (01/19/23) Essential (primary) hypertension (01/19/23) Unilateral primary osteoarthritis, right knee (01/19/23) Pathological fracture, right tibia, initial encounter for fracture (01/19/23) End stage renal disease (01/19/23) Difficulty in walking, not elsewhere classified (01/19/23) Unspecified fracture of shaft of right fibula, initial encounter for closed fracture (01/19/23) Unspecified fracture of right lower leg, initial encounter for closed fracture (01/19/23) Personal history of other mental and behavioral disorders (01/19/23) Personal history of other diseases of the respiratory system (01/19/23) Personal history of nicotine dependence (01/19/23) Dependence on renal dialysis (01/19/23) Objective Data Objective Data Vital Signs: Vital Signs Temp Pulse Resp BP Pulse Ox O2 Del Method 98.4 F 86 16 123/52 H 95 Room Air 01/21/23 08:15 01/21/23 08:15 01/21/23 08:15 01/21/23 08:15 01/21/23 08:15 01/21/23 08:23 Oxygen Delivery Method Room Air Weight: 216 lb 11.43 oz Body Mass Index (BMI) 32.9 Intake & Output: Intake and Output for Last 24 Hours 01/19/23 01/20/23 01/21/23 23:59 23:59 23:59 Intake Total 780 / 780 550 / 550 Output Total 550 / 550 1650 / 1950 300 / 300 Balance 230 / 230 -1100 / -1400 -300 / -300 Lab / Micro Data 01/21/23 06:00 01/21/23 13:07 Labs: Laboratory Results - last 24 hr 01/20/23 04:08: PTH Intact 433.9 H 01/20/23 12:01: Sodium 139, Potassium 5.4 H, Chloride 105, Carbon Dioxide 29.0, Anion Gap 5, BUN 38 H, Creatinine 4.15 H, Estim Creat Clear Calc 15.09, Est GFR (MDRD) Af Amer 14 L, Est GFR (MDRD) Non-Af 12 L, BUN/Creatinine Ratio 9.2 L, Glucose 81, Calcium 8.5, POC Glucose 70 L 01/20/23 17:01: POC Glucose 144 H 01/20/23 21:42: POC Glucose 131 H 01/21/23 06:00: WBC 5.3, RBC 3.00 L, Hgb 8.9 L, Hct 30.7 L, MCV 102.3 H, MCH 29.7, MCHC 29.0 L, RDW Std Deviation 53.6 H, RDW Coeff of Ben 14.2, Plt Count 146 L, MPV 9.3, Immature Gran % (Auto) 0.000, Neut % (Auto) 56.6, Lymph % (Auto)29.6, Canyon % (Auto) 11.3 H, Eos % (Auto) 1.9, Baso % (Auto) 0.6, Absolute Neuts (auto) 3.0, Absolute Lymphs (auto) 1.57, Nucleated RBC % 0, Sodium 135 L, Potassium 5.6 H, Chloride 104, Carbon Dioxide 26.0, Anion Gap 5, BUN 50 H, Creatinine 5.25 H, Estim Creat Clear Calc 11.93, Est GFR (MDRD) Af Amer 11 L, Est GFR (MDRD) Non-Af 9 L, BUN/Creatinine Ratio 9.5 L, Glucose 104, Hemoglobin A1c 5.8 H, Calcium 8.6 01/21/23 06:26: POC Glucose 94 Physical Exam Narrative Seen and examined. Patient's pain is controlled. Discussed with her regarding metabolic bone disease. Patient states her legs gave out on walking on plain ground/floor, trivial fall resulting into fracture. Not on the stairs. Did not feel dizziness headache, diplopia or syncope. Physical exam: General: Alert, Oriented x3, Cooperative HEENT: Atraumatic, PERRLA, EOMI, Normocephalic Oral: No Gingival or Mucosal Lesions/ Ulcerations Neck: Supple, No JVD, Negative Carotid Bruits Lungs: Air entry diminished in bilateral lung bases. No crepitation/rhonchi Cardiovascular: Regular rate, Regular Rhythm, Normal S1, Normal S2, No murmurs Abdomen: Bowel Sounds Present, Soft, Non Tender, Non-Distended : No renal angle tenderness. No suprapubic tenderness. Extremities: No edema, Capillary Refill Less than 3 Seconds Skin: No rashes, No breakdown Musculoskeletal: Mild tenderness on the right tibia-fibula. Hannah wrap bandage. ROM not attempted. Neurological: Cranial nerves II-XII grossly intact, DTR 2+/4. No acute focal neurological deficit. Psych/Mental Status: Flat affect. Assessment & Plan Assessment/Plan (1) Fracture of right lower extremity: QUALIFIERS: Encounter type: initial encounter Fracture type: closed Qualified Code(s): S82.91XA - Unspecified fracture of right lower leg, initial encounter for closed fracture (2) History of COPD: (3) ESRD (end stage renal disease) on dialysis: PLAN: Plan 57-year-old female was brought to ED by EMS for fall on her buttocks and her legwas tucked under her. She complains of severe pain from hip to the tip of the toes, denies numbness or tingling. CT scan of right lower extremity showed complete fracture through proximal tibia and fibular metadiaphysis with soft tissue edema. #Complete fractures through R proximal tibia and fibula: X-ray and CT reviewed.Pain control. On hydromorphone because of end-stage renal disease. Right lower leg splinted in ED. pending surgery consulted for surgical opinion. PT and OT on board. Her fracture seems pathological's most likely [facility] Patient serum calcium is 8.6, phosphorus 5.9, magnesium 2.1. Vitamin D 25 and phosphorus are 83.2 and 5.4 respectively. PTH high 433. Vitamin B12 543. Discussed with the paper cutter. She started dialysis about 1 year ago her phosphate and PTH is not very high to warrant or indication of treatment. Bicarb is 26 and patient on sodium bicarbonate. As per paper cutter, phosphorusabove 600 might need treatment. #End-stage renal disease on dialysis Thursday, , Thursday: Security Consultant consulted. -Potassium very slightly elevated at 5.3, repeat potassium 5.4. Patient undergoing hemodialysis. No shortness of breath or hypoxia. #Type 2 diabetes mellitus: Glucose in BMP is 81. Serum magnesium 2.1. -Glucose checks and sliding scale insulin -Holding glipizide and Trulicity Chronic COPD Albuterol as needed not in exacerbation. #Chronic anemia -Suspect secondary to renal disease/chronic disease -Appears to be at baseline -01/21: Reticulocyte panel and iron work-up ordered. Patient on ferrous sulfate 325 mgdaily. Serum iron low, ferritin high 307. Iron saturation 8.2% low. Reticulocyte count, immature reticulocyte fraction normal. Overall, iron profile is suggestive of anemia of chronic disease/renal disease. We will change her ferrous sulfate to every other day. #Depression -Continue Zoloft #GERD -Continue PPI #Hypertension -Continue blood pressure medications and adjust as tolerated #DVT ppx: Heparin subcu Charges/Coding Visit Charges Inpatient E&M: 11359 Subs Hosp L2 01/21/23 1510 <Electronically signed by Branden Banks MD> Cosigner Signature (if applicable): CC: ~ Signed [facility] Work Phone: 1(827) 530-465511-22-2023 [facility] Consult note Author Sofía Hill [facility] January 21, 2023 7:52am Note Date/Time January 21, 2023 7:53am [facility] Medical Records Department [address] [place] [id number] Consultation - Nephrology 01/21/23 0747 MR#: [id number] Acct: [id number] Name: Margareth GONZALEZ Rep #:[id number] : 1965 57 From: Sofía velasco MD PCP: Dr. Ignacio Cheatham MD Status:ADM I N Location: [place] [address] Assessment & Plan Assessment/Plan (1) ESRD (end stage renal disease) on dialysis: PLAN: HD arranged for today. Tib/Fib fracture. apparently non traumatic. she tells me that she has similar fracture several years ago. bone scan about 10 years ago showed osteoporosis. Reviewed records from dialysis unit. she has recently started dialysis with us. Phos levels have been at goal. PTH level 680 which is within goal for ESRD status. Hyperkalemia. should improve with HD HPI Consult Data Date of Consult: 01/21/23 HPI Narrative Reason for Consultation: ESRD HPI Narrative: Margareth GONZALEZ, is a 57 F who presents with a tibia fibula fracture, non traumatic. renal consulted for ESRD. on HD. last HD yesterday. currently denies any complaints. [facility] Medical History Anxiety and depression Asthma Benign essential hypertension Bipolar disorder Chronic anemia COPD with asthma Diabetes Diabetes mellitus, type 2 Dialysis patient DVT (deep venous thrombosis) Fibromyalgia Former smoker Former tobacco use GERD (gastroesophageal reflux disease) History of diabetes mellitus, type II HLD (hyperlipidemia) HTN (hypertension) Kidney disease Kidney disease, chronic, stage IV (GFR 15-29 ml/min) Neuropathy Obesity Sleep apnea Home Medications cholecalciferol (vitamin D3) 25 mcg (1,000 unit) capsule (Vitamin D3) 5,000 unitPO DAILY 10/03/13 [History Last Taken 01/18/23] omeprazole 20 mg capsule,delayed release 20 mg PO DAILY 08/23/14 [History Last Taken 01/18/23] glipizide 5 mg tablet 10 mg PO DAILY 04/28/15 [History Last Taken 01/18/23] labetalol 200 mg tablet 100 mg PO BID 04/28/15 [History Last Taken 01/18/23] aspirin 81 mg tablet,delayed release (Aspir-Low) 81 mg PO DAILY 05/27/16 [History Last Taken 01/18/23] melatonin 5 mg capsule 5 mg PO QHS 05/27/16 [History Last Taken 01/18/23] ferrous sulfate 325 mg (65 mg iron) tablet (Iron (ferrous sulfate)) 325 mg PO DAILY 11/25/16 [History Last Taken 01/18/23] amitriptyline 100 mg tablet 100 mg PO QHS sleep 09/10/22 [History Last Taken 01/18/23] atorvastatin 40 mg tablet 40 mg PO QHS hyperlipidemia 09/10/22 [History Last Taken 01/18/23] calcitriol 0.25 mcg capsule 0.25 mcg PO BID 09/10/22 [History Last Taken 01/18/23] dulaglutide 1.5 mg/0.5 mL subcutaneous pen injector (Trulicity) 1.5 mg subcut QWEEK diabetes 09/10/22 [History Last Taken 01/18/23] hydroxyzine HCl 50 mg tablet 50 mg PO Q6H PRN itching 09/10/22 [History Last Taken Unknown] sertraline 50 mg tablet 50 mg PO QHS bipolar 09/10/22 [History Last Taken 01/18/23] sodium bicarbonate 650 mg tablet 650 mg PO QHS 09/10/22 [History Last Taken 01/18/23] acetaminophen 325 mg tablet 650 mg (2 x 325 mg) PO Q4H PRN PRN Fever, pain 1- 12/09 #0 tabs 09/11/22 [Rx Last Taken 01/19/23] oxycodone 5 mg tablet 5 mg PO Q8H PRN pain 3 days #10 tabs 10/15/22 [Rx Last Taken Unknown] docusate sodium 100 mg capsule (DOK) 100 mg PO DAILY #20 CAPSULES 01/15/23 [Rx Last Taken Unknown] Allergy/AdvReac Type Severity Reaction Status Date / Time julian garcia Allergy Unknown UNKNOWN Verified 01/19/23 07:12 mold Allergy Unknown unknown Verified 01/19/23 07:12 lisinopril Allergy unknown Verified 01/19/23 07:12 Penicillins Allergy Anaphylaxis Verified 01/19/23 07:12 tetracycline [Tetracycline] Allergy Anaphylaxis Verified 01/19/23 07:12 codeine AdvReac Abd Verified 01/19/23 07:12 cramps/diarrhea diphenhydramine HCl AdvReac Upset Verified 01/19/23 07:12 [From Benadryl] Stomach hydrocodone bitartrate AdvReac Abd Verified 01/19/23 07:12 [From Vicodin] cramps/diarrhea NSAIDS (Non-Steroidal AdvReac Unknown Verified 01/19/23 07:12 Anti-Inflamma Family History Mother Heart disease Hypertension Diabetes Kidney disease Father Diabetes Surgical History H/O gastric bypass H/O vascular surgery History of appendectomy History of cholecystectomy S/P appendectomy S/P cholecystectomy Social History household members: none Smoking Status: Former smoker how long ago did patient quit smoking: Quit age 24. alcohol intake: never substance use type: does not use ROS ROS Narrative negative except above Physical Exam Narrative Alert awake oriented x 3 no obvious distress no pallor no icterus no JVD s1s2 no murmurs lungs clear abdomen soft no organomegaly no edema no cyanosis Lab / Micro Data 01/21/23 06:00 01/21/23 06:00 Labs: Laboratory Results - last 24 hr 01/20/23 04:08: PTH Intact 433.9 H 01/20/23 12:01: Sodium 139, Potassium 5.4 H, Chloride 105, Carbon Dioxide 29.0, Anion Gap 5, BUN 38 H, Creatinine 4.15 H, Estim Creat Clear Calc 15.09, Est GFR (MDRD) Af Amer 14 L, Est GFR (MDRD) Non-Af 12 L, BUN/Creatinine Ratio 9.2 L, Glucose 81, Calcium 8.5, POC Glucose 70 L 01/20/23 17:01: POC Glucose 144 H 01/20/23 21:42: POC Glucose 131 H 01/21/23 06:00: WBC 5.3, RBC 3.00 L, Hgb 8.9 L, Hct 30.7 L, MCV 102.3 H, MCH 29.7, MCHC 29.0 L, RDW Std Deviation 53.6 H, RDW Coeff of Ben 14.2, Plt Count 146 L, MPV 9.3, Immature Gran % (Auto) 0.000, Neut % (Auto) 56.6, Lymph % (Auto) 29.6, Canyon % (Auto) 11.3 H, Eos % (Auto) 1.9, Baso % (Auto) 0.6, Absolute Neuts (auto) 3.0, Absolute Lymphs (auto) 1.57, Nucleated RBC % 0, Sodium 135 L, Potassium 5.6 H, Chloride 104, Carbon Dioxide 26.0, Anion Gap 5, BUN 50 H, Creatinine 5.25 H, Estim Creat Clear Calc 11.93, Est GFR (MDRD) Af Amer 11 L, Est GFR (MDRD) Non-Af 9 L, BUN/Creatinine Ratio 9.5 L, Glucose 104, Calcium 8.6 01/21/23 06:26: POC Glucose 94 01/21/23 0752 <Electronically signed by Sofía Hill MD> Cosigner Signature (if applicable): CC: Dr. Sofía Hill MD; Dr. Mone Riggs MD; Dr. Deshawn Tucker MD; Dr.William Linden MD~ Signed [facility] Work Phone: 1(944) 286-506011-21-2023 Consult note Author Deshawn Garrett [facility] January 20, 2023 4:19pm Note Date/Time January 20, 2023 4:10pm [facility] Medical Records Department [address] [place] [address] Consultation - Orthopedics 01/20/23 1603 MR#: [id number] Acct: [id number] Name: Margareth GONZALEZ Rep #:[id number] : 1965 57 From: Deshawn Booker PCP: Dr. Ignacio Cheatham MD Status:ADM I N Location: [place] [address] HPI Consult Data Date of Consult: 01/20/23 HPI Narrative Reason for Consultation: Right leg pain HPI Narrative: Margareth GONZALEZ, is a 57 F with a history of end-stage renal failure, diabetes and obesity with previous gastric bypass surgery who presents today with right leg pain. Patient reports that she has had right leg pain since July 2022. She wasunder the care of Dr. Riggs at [facility] who managed her locally however, he is not privileged at this facility. She reports that he had her do protective weightbearing he kept me off it is much as possible. She reports using a walker, crutches and even a wheelchair at times until the end of November. She reports she was told that at that point she no longer needed follow-up as healing was appropriate. 2 weeks after this she presented the emergency department initially and last week and was noted to have evidence of stress fracture in the proximal tibia. She was discharged to follow-up with herorthopedist who presented again yesterday with pain and inability bear weight. Patient notes she was walking out of her house when her leg gave out on her and she fell. Patient denies any bleeding from the leg. There were no reports of open fracture or skin tears from the emergency room physician when they contacted me. There is a significant splint in place. Patient reports pain in the right leg at this time. No associated numbness and tingling. Pain is 5 outof 10 controlled with immobilization and pain medications. Denies associated numbness and tingling. Patient denies any history of cancer. CT scan was obtained no significant bony lesions are appreciated. [facility] Medical History Anxiety and depression Asthma Benign essential hypertension Bipolar disorder Chronic anemia COPD with asthma Diabetes Diabetes mellitus, type 2 Dialysis patient DVT (deep venous thrombosis) Fibromyalgia Former smoker Former tobacco use GERD (gastroesophageal reflux disease) History of diabetes mellitus, type II HLD (hyperlipidemia) HTN (hypertension) Kidney disease Kidney disease, chronic, stage IV (GFR 15-29 ml/min) Neuropathy Obesity Sleep apnea Home Medications cholecalciferol (vitamin D3) 25 mcg (1,000 unit) capsule (Vitamin D3) 5,000 unitPO DAILY 10/03/13 [History Last Taken 01/18/23] omeprazole 20 mg capsule,delayed release 20 mg PO DAILY 08/23/14 [History Last Taken 01/18/23] glipizide 5 mg tablet 10 mg PO DAILY 04/28/15 [History Last Taken 01/18/23] labetalol 200 mg tablet 100 mg PO BID 04/28/15 [History Last Taken 01/18/23] aspirin 81 mg tablet,delayed release (Aspir-Low) 81 mg PO DAILY 05/27/16 [History Last Taken 01/18/23] melatonin 5 mg capsule 5 mg PO QHS 05/27/16 [History Last Taken 01/18/23] ferrous sulfate 325 mg (65 mg iron) tablet (Iron (ferrous sulfate)) 325 mg PO DAILY 11/25/16 [History Last Taken 01/18/23] amitriptyline 100 mg tablet 100 mg PO QHS sleep 09/10/22 [History Last Taken 01/18/23] atorvastatin 40 mg tablet 40 mg PO QHS hyperlipidemia 09/10/22 [History Last Taken 01/18/23] calcitriol 0.25 mcg capsule 0.25 mcg PO BID 09/10/22 [History Last Taken 01/18/23] dulaglutide 1.5 mg/0.5 mL subcutaneous pen injector (Trulicity) 1.5 mg subcut QWEEK diabetes 09/10/22 [History Last Taken 01/18/23] hydroxyzine HCl 50 mg tablet 50 mg PO Q6H PRN itching 09/10/22 [History Last Taken Unknown] sertraline 50 mg tablet 50 mg PO QHS bipolar 09/10/22 [History Last Taken 01/18/23] sodium bicarbonate 650 mg tablet 650 mg PO QHS 09/10/22 [History Last Taken 01/18/23] acetaminophen 325 mg tablet 650 mg (2 x 325 mg) PO Q4H PRN PRN Fever, pain 1- 10 #0 tabs 09/11/22 [Rx Last Taken 01/19/23] oxycodone 5 mg tablet 5 mg PO Q8H PRN pain 3 days #10 tabs 10/15/22 [Rx Last Taken Unknown] docusate sodium 100 mg capsule (DOK) 100 mg PO DAILY #20 CAPSULES 01/15/23 [Rx Last Taken Unknown] Allergy/AdvReac Type Severity Reaction Status Date / Time balsam juan Allergy Unknown UNKNOWN Verified 01/19/23 07:12 mold Allergy Unknown unknown Verified 01/19/23 07:12 lisinopril Allergy unknown Verified 01/19/23 07:12 Penicillins Allergy Anaphylaxis Verified 01/19/23 07:12 tetracycline [Tetracycline] Allergy Anaphylaxis Verified 01/19/23 07:12 codeine AdvReac Abd Verified 01/19/23 07:12 cramps/diarrhea diphenhydramine HCl AdvReac Upset Verified 01/19/23 07:12 [From Benadryl] Stomach hydrocodone bitartrate AdvReac Abd Verified 01/19/23 07:12 [From Vicodin] cramps/diarrhea NSAIDS (Non-Steroidal AdvReac Unknown Verified 01/19/23 07:12 Anti-Inflamma Family History Mother Heart disease Hypertension Diabetes Kidney disease Father Diabetes Surgical History H/O gastric bypass H/O vascular surgery History of appendectomy History of cholecystectomy S/P appendectomy S/P cholecystectomy Social History household members: none Smoking Status: Former smoker how long ago did patient quit smoking: Quit age 24. alcohol intake: never substance use type: does not use ROS Constitutional Constitutional: Reports systems reviewed and no addt'l complaints, except as documented Eyes Eyes: Reports systems reviewed and no addt'l complaints, except as documented ENT HEENT: Reports systems reviewed and no addt'l complaints, except as documented Cardiovascular Cardiovascular: Reports systems reviewed and no addt'l complaints, except as documented Respiratory/Chest Respiratory/Chest: Reports systems reviewed and no addt'l complaints, except as documented Gastrointestinal Gastrointestinal: Reports systems reviewed and no addt'l complaints, except as documented Genitourinary Genitourinary: Reports systems reviewed and no addt'l complaints, except as documented Musculoskeletal Musculoskeletal: Reports systems reviewed and no addt'l complaints, except as documented Integumentary Integumentary: Reports systems reviewed and no addt'l complaints, except as documented Neurologic Neurologic: Reports systems reviewed and no addt'l complaints, except as documented Psychiatric Psychiatric: Reports systems reviewed and no addt'l complaints, except as documented Endocrine Endocrinology: Reports systems reviewed and no addt'l complaints, except as documented Hematologic/Lymphatic Hematologic/Lymphatic: Reports systems reviewed and no addt'l complaints, exceptas documented Allergic/Immunologic Allergic/Immunologic: Reports systems reviewed and no addt'l complaints, except as documented Vital Signs Vital Signs Vital Signs: 01/19/23 16:14 01/19/23 16:10 01/19/23 17:40 Temperature 98.3 F Temperature Source Oral Pulse Rate 87 88 Respiratory Rate 17 15 Respiratory Effort Normal Non-Labored Respiratory Depth Normal Respiratory Pattern Normal Blood Pressure 167/71 H 167/71 H Blood Pressure Mean 103 103 Blood Pressure Source Monitor Blood Pressure Position Semi-Fowlers Blood Pressure Location Right Arm Pulse Ox 98 94 Oxygen Delivery Method Room Air Room Air 01/19/23 22:05 01/19/23 22:00 01/20/23 04:26 Temperature 98 F 97.6 F L Temperature Source Oral Temporal Pulse Rate 85 84 Respiratory Rate 16 14 Respiratory Effort Normal Non-Labored Respiratory Depth Normal Respiratory Pattern Normal Blood Pressure 143/65 H 126/60 H Blood Pressure Mean 91 82 Blood Pressure Source Monitor Monitor Blood Pressure Position Semi-Fowlers Semi-Fowlers Blood Pressure Location Right Arm Right Arm Pulse Ox 94 93 Oxygen Delivery Method Room Air Room Air Room Air 01/20/23 06:03 01/20/23 04:00 01/20/23 06:51 Temperature 97.8 F Temperature Source Temporal Pulse Rate 84 81 Respiratory Rate 16 15 Respiratory Effort Normal Non-Labored Normal Non-Labored Respiratory Depth Normal Respiratory Pattern Normal Blood Pressure 109/52 L 103/49 L Blood Pressure Mean 71 67 Blood Pressure Source Monitor Monitor Blood Pressure Position Semi-Fowlers Semi-Fowlers Blood Pressure Location Right Arm Right Arm Pulse Ox 96 97 Oxygen Delivery Method Room Air Room Air Room Air 01/20/23 10:26 01/20/23 10:26 01/20/23 14:00 Temperature 98.1 F Temperature Source Oral Pulse Rate 83 Respiratory Rate 16 Respiratory Effort Respiratory Depth Respiratory Pattern Blood Pressure 126/65 H Blood Pressure Mean 85 Blood Pressure Source Monitor Blood Pressure Position Blood Pressure Location Pulse Ox 96 Oxygen Delivery Method Room Air Room Air Room Air 01/20/23 07:21 01/20/23 07:51 01/20/23 08:21 Temperature Temperature Source Pulse Rate 79 84 74 Respiratory Rate 15 14 16 Respiratory Effort Respiratory Depth Respiratory Pattern Blood Pressure 110/47 L 95/52 L 100/56 L Blood Pressure Mean 68 66 70 Blood Pressure Source Monitor Monitor Monitor Blood Pressure Position Semi-Fowlers Semi-Fowlers Semi-Fowlers Blood Pressure Location Right Arm Right Arm Right Arm Pulse Ox Oxygen Delivery Method Room Air Room Air Room Air 01/20/23 08:46 01/20/23 09:21 01/20/23 10:11 Temperature Temperature Source Pulse Rate 73 77 74 Respiratory Rate 14 14 14 Respiratory Effort Normal Non-Labored Respiratory Depth Respiratory Pattern Blood Pressure 94/46 L 109/52 L 117/84 H Blood Pressure Mean 62 71 95 Blood Pressure Source Monitor Monitor Monitor Blood Pressure Position Semi-Fowlers Semi-Fowlers Semi-Fowlers Blood Pressure Location Right Arm Right Arm Right Arm Pulse Ox Oxygen Delivery Method Room Air Room Air Room Air Weight Weight: 216 lb 14.958 oz Body Mass Index (BMI) 32.8 Physical Exam Const alert, oriented x3 and well nourished General Appearance: cooperative HEENT normocephalic and head/scalp atraumatic Eyes PERRL Neck no JVD Resp normal respiratory effort Cardio Cardio Narrative: Regular pulse rate GI non-distended GI Narrative: Obese Extremity Extremity Narrative: Right lower extremity: Patient has a long-leg splint in place. No saturation onthe dressing. Sensations intact light touch saphenous, sural, superficial peroneal, deep peroneal tibial and perturbations. I was able to put pressure onsplinted and the compartments also I was able to move the digits passively without severe increase in pain. All digits are warm and pink with brisk cap refill. Patient wiggles all digits in the splint. Skin no rashes or lesions noted Neuro CN's II-XII intact bilaterally Medical Records Data Attestation: I reviewed the patient's medical records Lab / Micro Data Attestation: I reviewed the patient's lab results. 01/20/23 04:08 01/20/23 12:01 Labs: Laboratory Results - last 24 hr 01/19/23 17:06: Potassium 5.5 H 01/19/23 17:22: POC Glucose 68 L 01/19/23 17:40: POC Glucose 74 01/19/23 22:19: POC Glucose 155 H 01/20/23 04:08: WBC 5.4, RBC 3.02 L, Hgb 9.2 L, Hct 30.4 L, MCV 100.7 H, MCH 30.5, MCHC 30.3 L, RDW Std Deviation 52.1 H, RDW Coeff of Ben 14.3, Plt Count 156, MPV 9.3, Immature Gran % (Auto) 0.400, Neut % (Auto) 54.6, Lymph % (Auto) 30.7, Canyon % (Auto) 10.0, Eos % (Auto) 3.7, Baso % (Auto) 0.6, Absolute Neuts (auto) 3.0, Absolute Lymphs (auto) 1.66, Nucleated RBC % 0, APTT 36.9 H, Sodium 138, Potassium 6.0 H*, Chloride 105, Carbon Dioxide 26.0, Anion Gap 7, BUN 55 H,Creatinine 5.89 H, Estim Creat Clear Calc 10.63, Est GFR (MDRD) Af Amer 10 L, Est GFR (MDRD) Non-Af 8 L, BUN/Creatinine Ratio 9.3 L, Glucose 96, Calcium 8.2 L, Phosphorus 5.9 H, Magnesium 2.1, TSH 3.09 01/20/23 06:21: POC Glucose 84 01/20/23 12:01: Sodium 139, Potassium 5.4 H, Chloride 105, Carbon Dioxide 29.0, Anion Gap 5, BUN 38 H, Creatinine 4.15 H, Estim Creat Clear Calc 15.09, Est GFR (MDRD) Af Amer 14 L, Est GFR (MDRD) Non-Af 12 L, BUN/Creatinine Ratio 9.2 L, Glucose 81, Calcium 8.5, POC Glucose 70 L Imagaing X-rays and CT scan of the extremity were reviewed. Patient has a pathologic stress fracture of the proximal tibia. CT scan does not reveal evidence of significant bone lesion. Assessment & Plan Assessment/Plan (1) Pathological fracture, right tibia, initial encounter for fracture: PLAN: Natural history of the disease process and treatment options were discussed the patient. Patient was given opportunity ask questions and all questions were answered to the best my ability. We discussed the natural history of pathologic fracture of the right tibia likely in relation to metabolic deficiencies in relation to her renal disease. CT scan and x-rays were reviewed do not appreciate a bony lesion at this time. I have discussed with the medicine team the need for a metabolic work-up to address any deficiencies. I have also ordered parathyroid hormone for them to review. Patient's calcium was initially low and has been corrected so far on this visit. We did discuss operative and nonoperative interventions. Patient did wish to proceed with operative intervention. At this time I recommended a reamed intramedullary nail as an appropriate form of fixation and stabilization of the fracture. Risk and benefits of the procedure were discussed the patient including but not limited to blood loss, DVTs, PEs, nervous damage, fashion, therisk of anesthesia including loss of life. Also discussed at length the risk for this patient of a nonunion in relation to her metabolic disease. She has a history of renal failure, diabetes and also has a history of gastric bypass surgery all of which can add to metabolic deficiencies and malnutrition leading to nonunion to the fracture. Patient demonstrated understanding and wished to proceed. At this time antibiotics were ordered on-call to the operating room clindamycin is ordered secondary to anaphylaxis noted for penicillin. Patient will be made n.p.o. after midnight we will plan for surgical fixation tomorrow. Additionally, patient does have osteoarthritis of the right knee noted on the x- rays I did know she would likely have residual knee pain after tibial nailing. (2) Fracture of fibula, right, closed: PLAN: Please see above plan (3) ESRD (end stage renal disease) on dialysis: PLAN: Recommend continued metabolic work-up (4) Inability to walk: PLAN: See above plan for tibia fracture (5) History of COPD: PLAN: Per primary service, may have effect on postoperative care (6) History of tobacco use: PLAN: Per primary service, may have effect on postoperative care (7) History of bipolar disorder: PLAN: Per primary service, may have effect on postoperative care (8) History of asthma: PLAN: Per primary service, may have effect on postoperative care (9) Benign essential hypertension: PLAN: Per primary service, may have effect on postoperative care (10) Diabetes mellitus, type 2: PLAN: Per primary service, may have effect on postoperative care (11) Anxiety and depression: PLAN: Per primary service, may have effect on postoperative care (12) Osteoarthritis of right knee: PLAN: X-rays of the knee and tibia and femur were taken. Patient does have evidence of joint space narrowing subchondral sclerosis and marginal osteophytesconsistent with osteoarthritis in these nonweightbearing films. 01/20/23 1619 <Electronically signed by Deshawn Tucker MD> Cosigner Signature (if applicable): CC: Dr. Sofía Hill MD; Dr. Mone Riggs MD; Dr. Deshawn Tucker MD; Dr.William Linden MD~ Signed [facility] Work Phone: 1(809) 134-257611-21-2023 Progress note Author Brandenjessica Banks [facility] January 20, 2023 12:34pm Note Date/Time January 20, 2023 8:01am [facility] Medical Records Department [address] [place] [address] Progress Note - Hospitalist 01/20/23 0755 MR#: [id number] Acct: [id number] Name: Margareth GONZALEZ Rep #:[id number] : 1965 57 From: Branden Booker PCP: Dr. Ignacio Cheatham MD Status:ADM I N Location: [place] [address] Reason for Visit Reason for Visit: Diagnoses End stage renal disease (01/19/23) Unspecified fracture of right lower leg, initial encounter for closed fracture (01/19/23) Personal history of other diseases of the respiratory system (01/19/23) Dependence on renal dialysis (01/19/23) Objective Data Objective Data Vital Signs: Vital Signs Temp Pulse Resp BP Pulse Ox O2 Del Method 97.8 F 81 15 103/49 L 97 Room Air 01/20/23 06:03 01/20/23 06:51 01/20/23 06:51 01/20/23 06:51 01/20/23 06:51 01/20/23 06:51 Oxygen Delivery Method Room Air Weight: 218 lb 7.649 oz Body Mass Index (BMI) 33.0 Intake & Output: Intake and Output for Last 24 Hours 01/18/23 01/19/23 01/20/23 23:59 23:59 23:59 Intake Total 780 / 780 50 / 50 Output Total 550 / 550 500 / 500 Balance 230 / 230 -450 / -450 Lab / Micro Data 01/20/23 04:08 01/20/23 12:01 Labs: Laboratory Results - last 24 hr 01/19/23 14:27: Sodium 141, Potassium 5.7 H, Chloride 107, Carbon Dioxide 27.0, Anion Gap 7, BUN 49 H, Creatinine 5.34 H, Estim Creat Clear Calc 11.73, Est GFR (MDRD) Af Amer 11 L, Est GFR (MDRD) Non-Af 9 L, BUN/Creatinine Ratio 9.2 L, Glucose 88, Calcium 8.4 L 01/19/23 17:06: Potassium 5.5 H 01/19/23 17:22: POC Glucose 68 L 01/19/23 17:40: POC Glucose 74 01/19/23 22:19: POC Glucose 155 H 01/20/23 04:08: WBC 5.4, RBC 3.02 L, Hgb 9.2 L, Hct 30.4 L, MCV 100.7 H, MCH 30.5, MCHC 30.3 L, RDW Std Deviation 52.1 H, RDW Coeff of Ben 14.3, Plt Count 156, MPV 9.3, Immature Gran % (Auto) 0.400, Neut % (Auto) 54.6, Lymph % (Auto) 30.7, Canyon % (Auto) 10.0, Eos % (Auto) 3.7, Baso % (Auto) 0.6, Absolute Neuts (auto) 3.0, Absolute Lymphs (auto) 1.66, Nucleated RBC % 0, APTT 36.9 H, Sodium 138, Potassium 6.0 H*, Chloride 105, Carbon Dioxide 26.0, Anion Gap 7, BUN 55 H,Creatinine 5.89 H, Estim Creat Clear Calc 10.63, Est GFR (MDRD) Af Amer 10 L, Est GFR (MDRD) Non-Af 8 L, BUN/Creatinine Ratio 9.3 L, Glucose 96, Calcium 8.2 L, Phosphorus 5.9 H, Magnesium 2.1, TSH 3.09 01/20/23 06:21: POC Glucose 84 Radiography Diagnostic Testing: Radiology Impression Femur X-Ray 01/19/23 08:00 IMPRESSION: No demonstrated right femur fracture. Electronically Signed: Alejandro Blanchard MD at 8:24 EST , Foot X-Ray 01/19/23 08:00 IMPRESSION: Plantar calcaneal spur. No demonstrated acute fracture. Electronically Signed: Alejandro Blanchard MD at 8:37 EST , Knee X-Ray 01/19/23 08:00 IMPRESSION: New fracture of the proximal fibular shaft. More distinct transverse lucency across the proximal tibial shaft compared to the prior study, concerning for a new refracture. Stable tricompartment degenerative arthrosis. Electronically Signed: Alejandro Blanchard MD at 8:34 EST , Pelvis X-Ray 01/19/23 08:00 IMPRESSION: No fracture or dislocation in the pelvis. Mild degenerative changes in the hips. Electronically Signed: Deshawn Galeana MD at 8:36 EST , Tibia/Fibula X-Ray 01/19/23 08:00 IMPRESSION: New fracture of the proximal fibular shaft. Suspected transverse refracture of the proximal tibial shaft. Electronically Signed: Alejandro Blanchard MD at 8:30 EST , Lower Extremity CT 01/19/23 10:00 IMPRESSION: Complete fractures through the proximal tibial and fibular metadiaphyses. Subcutaneous soft tissue edema along the anterior aspect of the proximal calf. Electronically Signed: Alejandro Blanchard MD at 10:35 EST , Physical Exam Narrative Seen and examined. Patient states her legs gave out on walking on plain ground/floor. Not on the stairs. Did not feel dizziness headache, diplopia or syncope. Physical exam: General: Alert, Oriented x3, Cooperative HEENT: Atraumatic, PERRLA, EOMI, Normocephalic Oral: No Gingival or Mucosal Lesions/ Ulcerations Neck: Supple, No JVD, Negative Carotid Bruits Lungs: Air entry diminished in bilateral lung bases. No crepitation/rhonchi Cardiovascular: Regular rate, Regular Rhythm, Normal S1, Normal S2, No murmurs Abdomen: Bowel Sounds Present, Soft, Non Tender, Non-Distended : No renal angle tenderness. No suprapubic tenderness. Extremities: No edema, Capillary Refill Less than 3 Seconds Skin: No rashes, No breakdown Musculoskeletal: Tenderness on the right tibia-fibula. Hannah wrap bandage. ROM not attempted. Neurological: Cranial nerves II-XII grossly intact, DTR 2+/4. No acute focal neurological deficit. Psych/Mental Status: Flat affect. Assessment & Plan Assessment/Plan (1) Fracture of right lower extremity: QUALIFIERS: Encounter type: initial encounter Fracture type: closed Qualified Code(s): S82.91XA - Unspecified fracture of right lower leg, initial encounter for closed fracture (2) History of COPD: (3) ESRD (end stage renal disease) on dialysis: PLAN: Plan 57-year-old female was brought to ED by EMS for fall on her buttocks and her legwas tucked under her. She complains of severe pain from hip to the tip of the toes, denies numbness or tingling. CT scan of right lower extremity showed complete fracture through proximal tibia and fibular metadiaphysis with soft tissue edema. #Complete fractures through R proximal tibia and fibula: X-ray and CT reviewed.Pain control. On hydromorphone because of end-stage renal disease. Right lower leg splinted in ED. pending surgery consulted for surgical opinion. PT and OT on board. #End-stage renal disease on dialysis Thursday, , Thursday: Security Consultant consulted. -Potassium very slightly elevated at 5.3, repeat potassium 5.4. Patient undergoing hemodialysis. No shortness of breath or hypoxia. #Type 2 diabetes mellitus: Glucose in BMP is 81. Serum magnesium 2.1. -Glucose checks and sliding scale insulin -Holding glipizide and Trulicity Chronic COPD Albuterol as needed not in exacerbation. #Chronic anemia -Suspect secondary to renal disease/chronic disease -Appears to be at baseline -Continue to monitor CBC #Depression -Continue Zoloft #GERD -Continue PPI #Hypertension -Continue blood pressure medications and adjust as tolerated #DVT ppx: Heparin subcu Charges/Coding Visit Charges Inpatient E&M: 95774 Subs Hosp L2 01/20/23 1234 <Electronically signed by Branden Banks MD> Cosigner Signature (if applicable): CC: ~ Signed [facility] Work Phone: 1(552) 605-319911-20-2023 Discharge summary Author Yariel Wilks [facility] January 19, 2023 4:10pm Note Date/Time January 19, 2023 7:28am [facility] Medical Records Department [address] [place] [address] Emergency Department Summary 01/19/23 MR#: [id number] Acct: [id number] Name: Margareth GONZALEZ ARNOLD Rep #:[id number] : 1965 57 From: Yariel Wilks DO PCP: Dr. Ignacio Cheatham MD Status:ADM I N Location: [place] [address] HPI History of Present Illness Chief Complaint: Lower Extremity Injury Narrative Narrative: 57-year-old female with right leg pain. Patient states she had a fall today. She was walking out of her house and her leg gave out on her. Patient reports pain throughout the entire leg from the hip to the tip of her toes. She cannot localize any pain. Denies numbness or tingling. Patient states she fell on herbuttocks and did not actually injure her leg initially but then reports that maybe her leg was tucked under her. Denies head injury or LOC. She is not on any blood thinners. She takes a daily aspirin. She states she was otherwise inher normal state of health prior to the fall. She is end-stage renal disease ondialysis Thursday, Thursday, Thursday. Patient reports she is been here twice thisweek with right leg pain and she states nobody found anything. [facility] Medical History (Updated 01/19/23 @ 13:[address] Mone Rigsg MD) Anxiety and depression Benign essential hypertension Bipolar disorder Chronic anemia COPD with asthma Diabetes mellitus, type 2 Fibromyalgia Former tobacco use History of diabetes mellitus, type II HLD (hyperlipidemia) HTN (hypertension) Kidney disease, chronic, stage IV (GFR 15-29 ml/min) Neuropathy Obesity Home Medications cholecalciferol (vitamin D3) 25 mcg (1,000 unit) capsule (Vitamin D3) 5,000 unitPO DAILY 10/03/13 [History Last Taken 01/18/23] omeprazole 20 mg capsule,delayed release 20 mg PO DAILY 08/23/14 [History Last Taken 01/18/23] glipizide 5 mg tablet 10 mg PO DAILY 04/28/15 [History Last Taken 01/18/23] labetalol 200 mg tablet 100 mg PO BID 04/28/15 [History Last Taken 01/18/23] aspirin 81 mg tablet,delayed release (Aspir-Low) 81 mg PO DAILY 05/27/16 [History Last Taken 01/18/23] melatonin 5 mg capsule 5 mg PO QHS 05/27/16 [History Last Taken 01/18/23] ferrous sulfate 325 mg (65 mg iron) tablet (Iron (ferrous sulfate)) 325 mg PO DAILY 11/25/16 [History Last Taken 01/18/23] amitriptyline 100 mg tablet 100 mg PO QHS sleep 09/10/22 [History Last Taken 01/18/23] atorvastatin 40 mg tablet 40 mg PO QHS hyperlipidemia 09/10/22 [History Last Taken 01/18/23] calcitriol 0.25 mcg capsule 0.25 mcg PO BID 09/10/22 [History Last Taken 01/18/23] dulaglutide 1.5 mg/0.5 mL subcutaneous pen injector (Trulicity) 1.5 mg subcut QWEEK diabetes 09/10/22 [History Last Taken 01/18/23] hydroxyzine HCl 50 mg tablet 50 mg PO Q6H PRN itching 09/10/22 [History Last Taken Unknown] sertraline 50 mg tablet 50 mg PO QHS bipolar 09/10/22 [History Last Taken 01/18/23] sodium bicarbonate 650 mg tablet 650 mg PO QHS 09/10/22 [History Last Taken 01/18/23] acetaminophen 325 mg tablet 650 mg (2 x 325 mg) PO Q4H PRN PRN Fever, pain 1- 10/10 #0 tabs 09/11/22 [Rx Last Taken 01/19/23] oxycodone 5 mg tablet 5 mg PO Q8H PRN pain 3 days #10 tabs 10/15/22 [Rx Last Taken Unknown] docusate sodium 100 mg capsule (DOK) 100 mg PO DAILY #20 CAPSULES 01/15/23 [Rx Last Taken Unknown] Allergy/AdvReac Type Severity Reaction Status Date / Time lety juan Allergy Unknown UNKNOWN Verified 01/19/23 07:12 mold Allergy Unknown unknown Verified 01/19/23 07:12 lisinopril Allergy unknown Verified 01/19/23 07:12 Penicillins Allergy Anaphylaxis Verified 01/19/23 07:12 tetracycline [Tetracycline] Allergy Anaphylaxis Verified 01/19/23 07:12 codeine AdvReac Abd Verified 01/19/23 07:12 cramps/diarrhea diphenhydramine HCl AdvReac Upset Verified 01/19/23 07:12 [From Benadryl] Stomach hydrocodone bitartrate AdvReac Abd Verified 01/19/23 07:12 [From Vicodin] cramps/diarrhea NSAIDS (Non-Steroidal AdvReac Unknown Verified 01/19/23 07:12 Anti-Inflamma Family History Mother Heart disease Hypertension Diabetes Kidney disease Father Diabetes Surgical History H/O gastric bypass H/O vascular surgery S/P appendectomy S/P cholecystectomy Social History household members: none Smoking Status: Former smoker how long ago did patient quit smoking: Quit age 24. alcohol intake: never substance use type: does not use ROS ROS ED Constitutional Constitutional ED: Denies chills, fever(s) or sweats Eyes Eyes: Denies blurry vision or change in vision ENT ENT ED: Denies ear pain or sore throat Cardiovascular Cardiovascular: Denies chest pain, palpitations or racing heartbeat Respiratory/Chest Respiratory/Chest: Denies cough, dyspnea or sputum Gastrointestinal Gastrointestinal: Denies abdominal pain, constipation, diarrhea, nausea or vomiting Genitourinary Genitourinary ED: Denies dysuria, hematuria or urinary frequency Musculoskeletal Musculoskeletal: Reports other Details: Right hip, femur, knee, tib-fib, ankle, foot pain ; Denies arthralgias, myalgias or neck pain Integumentary Denies abscess, Abrasions or rash Neurologic Neurologic: Denies headache(s), paresthesias or weakness Psychiatric Psychiatric: Denies anxiety, depression, suicidal ideation or suicidal thoughts Endocrine Endocrinology: Denies polydipsia or polyuria EXAM Physical Exam Const Vital Signs: 01/19/23 07:13 01/19/23 13:40 Temperature 97.7 F L Temperature Source Temporal Pulse Rate 86 91 Respiratory Rate 22 H 15 Blood Pressure 141/70 H 139/88 H Blood Pressure Mean 93 105 Pulse Ox 98 97 Oxygen Delivery Method Room Air Room Air Positive well nourished and obese Nutritional Appearance: obese HEENT Reports moist mucous membranes normocephalic and atraumatic Chest Wall inspection of chest normal Resp normal respiratory effort Cardio regular rate and regular rhythm GI non-tender Back/Spine Thoracic Spine / Upper Back: Negative for thoracic spinal tenderness Lumbar Spine / Lower Back: Negative for lumbar spinal tenderness or straight legraise positive - left Extremity Extremity Narrative: Tenderness to palpation diffusely over the right hip, posterior femur, patella and tib-fib. She also has had some tenderness to palpation over the right ankleand foot. Neurovascular intact with brisk cap refill to all 5 toes. Limited range of motion secondary to pain and the patient is immobilized in a splint currently. I do not see any evidence of deformity initially. Neuro oriented x3 and CN's II-XII intact bilaterally Sensorium / Orientation: alert Motor Exam: strength 5/5 throughout Psych mental status grossly normal MDM MDM MDM Narrative Medical decision making narrative: Patient presenting with right leg pain after mechanical fall. She has pain in the right hip, right femur, right knee, right tib-fib, right ankle, right foot. Differential includes hip fracture femur fracture patellar fracture quadriceps tendon rupture, patellar tendon rupture, tib-fib fracture, ankle fracture, foot fracture. Currently I am unable to fully assess the patient's leg as she is immobilized in a splint. Patient medicated with morphine, Zofran. X-rays of the lower extremity will be obtained. X-rays of the right hip, right femur, right knee, right tib-fib, right foot on my interpretation do not show both bonefracture of the proximal tibia and fibula. Discussed with Dr. Tucker who recommended getting a CT of the lower extremity to include the fracture. This was performed and shows a fracture again in the same place. Screening lab work at baseline. Patient end-stage renal disease on dialysis. Patient given a couple doses of morphine. Dr. Tucker recommended that I do a long posterior splint which was performed. This was well-padded and fabricated by myself. Patient tolerated procedure well. Neurovascular intact post procedurally. Patient discussed with hospitalist for admission. Impression 1. Proximal fibular fracture 2. Proximal tibia fracture Lab Data Attestation: I reviewed the patient's lab results. Labs: Laboratory Results - last 24 hr 01/19/23 07:24 WBC 5.4 RBC 3.37 L Hgb 10.2 L Hct 34.2 L MCV 101.5 H MCH 30.3 MCHC 29.8 L RDW Std Deviation 54.0 H RDW Coeff of Ben 14.4 Plt Count 164 MPV 9.1 Immature Gran % (Auto) 0.400 Neut % (Auto) 59.5 Lymph % (Auto) 27.1 Canyon % (Auto) 8.2 Eos % (Auto) 4.1 Baso % (Auto) 0.7 Absolute Neuts (auto) 3.2 Absolute Lymphs (auto) 1.46 Nucleated RBC % 0 Sodium 140 Potassium 5.3 H Chloride 106 Carbon Dioxide 25.0 Anion Gap 9 BUN 47 H Creatinine 5.31 H Estim Creat Clear Calc 11.79 Est GFR (MDRD) Af Amer 11 L Est GFR (MDRD) Non-Af 9 L BUN/Creatinine Ratio 8.9 L Glucose 97 Calcium 8.5 Radiography Diagnostic Testing: Clinical Impression(s) from Imaging Studies Femur X-Ray 01/19/23 08:00 IMPRESSION: No demonstrated right femur fracture. Electronically Signed: Alejandro Blanchard MD at 8:24 EST , Foot X-Ray 01/19/23 08:00 IMPRESSION: Plantar calcaneal spur. No demonstrated acute fracture. Electronically Signed: Alejandro Blanchard MD at 8:37 EST , Knee X-Ray 01/19/23 08:00 IMPRESSION: New fracture of the proximal fibular shaft. More distinct transverse lucency across the proximal tibial shaft compared to the prior study, concerning for a new refracture. Stable tricompartment degenerative arthrosis. Electronically Signed: Alejandro Blanchard MD at 8:34 EST , Pelvis X-Ray 01/19/23 08:00 IMPRESSION: No fracture or dislocation in the pelvis. Mild degenerative changes in the hips. Electronically Signed: Deshawn Galeana MD at 8:36 EST , Tibia/Fibula X-Ray 01/19/23 08:00 IMPRESSION: New fracture of the proximal fibular shaft. Suspected transverse refracture of the proximal tibial shaft. Electronically Signed: Alejandro Blanchard MD at 8:30 EST , Lower Extremity CT 01/19/23 10:00 IMPRESSION: Complete fractures through the proximal tibial and fibular metadiaphyses. Subcutaneous soft tissue edema along the anterior aspect of the proximal calf. Electronically Signed: Alejandro Blanchard MD at 10:35 EST , Discharge Plan Triage Chief Complaint: Lower Extremity Injury ED Provider: Yariel Wilks Dx/Rx/DC Orders Primary Care Provider: Ignacio Cheatham What to do if you have Problems For any increased pain, shortness of breath, bleeding, nausea or vomiting, chestpain, or any unexpected problems, contact your Primary Care Provider. Call [facility] ([phone]) or report to the closest Emergency Room. Call 911 if necessary. 01/19/23 1610 <Electronically signed by Yariel Wilks DO> Cosigner Signature (if applicable): CC: Dr. Ignacio Cheatham MD ~ Signed [facility] Work Phone: 1([phone]) 580-813711-20-2023 History and physical note Author Mone Riggs [facility] January 19, 2023 2:01pm Note Date/Time January 19, 2023 1:51pm [facility] Medical Records Department [address] [place] [address] H&P Exam - Hospitalist 01/19/23 1343 MR#: [id number] Acct: [id number] Name: Margareth GONZALEZ Rep #:[id number] : 1965 57 From: Mone Riggs MD PCP: Dr. Ignacio Cheatham MD Status:ADM I N Location: [place] [address] HPI - General General Date of Admission: 01/19/23 Date of Service: 01/19/23 Chief Complaint: RLE pain HPI Narrative Margareth GONZALEZ, is a 57-year-old female with a history of COPD, type 2 diabetes mellitus, depression, hypertension, end-stage renal disease on dialysis Judith,, Thursday, neuropathy, and obesity who presented to [facility] 01/19/2023 after a fall with right leg pain. She was walking out of her house and her leg gave out. She reportedly has been here twice this week with right leg pain but work-up has been negative. She had CT scan of right lower extremity in ED which showed complete fracture through proximal tibia and fibular metadiaphysis and soft tissue edema along the anterior aspect of the proximal calf. Surgery contacted who recommended patient have splint placed on leg and be medically admitted, unclear if she will end up being a surgical candidate, hospitalist contacted for admission. Patient evaluated at bedside and reports right lower extremity is in pain. She initially had a stress fracture of right lower extremity back in mid September and was following with Dr. Riggs with orthopedic surgery and had been doing well until roughly 01/09 when she began to have increasing pain. She was seen here twice since then with x-rays that did not show new/acute process. Today she was stepping out of her house and reports when she stepped down on her right leg just gave out. She presented here and was noted to have the broken tibia and fibula of the right lower extremity. She is on dialysis Thursday//Thursday and her last dialysis was last and she has been having pain with ambulation so she did not go. She does make urine however and does not feel short of breath or overloaded, she has no other new physical complaints. [facility] Medical History (Updated 01/19/23 @ 13:[address] Mone Riggs MD) Anxiety and depression Benign essential hypertension Bipolar disorder Chronic anemia COPD with asthma Diabetes mellitus, type 2 Fibromyalgia Former tobacco use History of diabetes mellitus, type II HLD (hyperlipidemia) HTN (hypertension) Kidney disease, chronic, stage IV (GFR 15-29 ml/min) Neuropathy Obesity Home Medications cholecalciferol (vitamin D3) 25 mcg (1,000 unit) capsule (Vitamin D3) 5,000 unitPO DAILY 10/03/13 [History Last Taken 01/18/23] omeprazole 20 mg capsule,delayed release 20 mg PO DAILY 08/23/14 [History Last Taken 01/18/23] glipizide 5 mg tablet 10 mg PO DAILY 04/28/15 [History Last Taken 01/18/23] labetalol 200 mg tablet 100 mg PO BID 04/28/15 [History Last Taken 01/18/23] aspirin 81 mg tablet,delayed release (Aspir-Low) 81 mg PO DAILY 05/27/16 [History Last Taken 01/18/23] melatonin 5 mg capsule 5 mg PO QHS 05/27/16 [History Last Taken 01/18/23] ferrous sulfate 325 mg (65 mg iron) tablet (Iron (ferrous sulfate)) 325 mg PO DAILY 11/25/16 [History Last Taken 01/18/23] amitriptyline 100 mg tablet 100 mg PO QHS sleep 09/10/22 [History Last Taken 01/18/23] atorvastatin 40 mg tablet 40 mg PO QHS hyperlipidemia 09/10/22 [History Last Taken 01/18/23] calcitriol 0.25 mcg capsule 0.25 mcg PO BID 09/10/22 [History Last Taken 01/18/23] dulaglutide 1.5 mg/0.5 mL subcutaneous pen injector (Trulicity) 1.5 mg subcut QWEEK diabetes 09/10/22 [History Last Taken 01/18/23] hydroxyzine HCl 50 mg tablet 50 mg PO Q6H PRN itching 09/10/22 [History Last Taken Unknown] sertraline 50 mg tablet 50 mg PO QHS bipolar 09/10/22 [History Last Taken 01/18/23] sodium bicarbonate 650 mg tablet 650 mg PO QHS 09/10/22 [History Last Taken 01/18/23] acetaminophen 325 mg tablet 650 mg (2 x 325 mg) PO Q4H PRN PRN Fever, pain 1- 1010 #0 tabs 09/11/22 [Rx Last Taken 01/19/23] oxycodone 5 mg tablet 5 mg PO Q8H PRN pain 3 days #10 tabs 10/15/22 [Rx Last Taken Unknown] docusate sodium 100 mg capsule (DOK) 100 mg PO DAILY #20 CAPSULES 01/15/23 [Rx Last Taken Unknown] Allergy/AdvReac Type Severity Reaction Status Date / Time julian juan Allergy Unknown UNKNOWN Verified 01/19/23 07:12 mold Allergy Unknown unknown Verified 01/19/23 07:12 lisinopril Allergy unknown Verified 01/19/23 07:12 Penicillins Allergy Anaphylaxis Verified 01/19/23 07:12 tetracycline [Tetracycline] Allergy Anaphylaxis Verified 01/19/23 07:12 codeine AdvReac Abd Verified 01/19/23 07:12 cramps/diarrhea diphenhydramine HCl AdvReac Upset Verified 01/19/23 07:12 [From Benadryl] Stomach hydrocodone bitartrate AdvReac Abd Verified 01/19/23 07:12 [From Vicodin] cramps/diarrhea NSAIDS (Non-Steroidal AdvReac Unknown Verified 01/19/23 07:12 Anti-Inflamma Family History Mother Heart disease Hypertension Diabetes Kidney disease Father Diabetes Surgical History H/O gastric bypass H/O vascular surgery S/P appendectomy S/P cholecystectomy Social History household members: none Smoking Status: Former smoker how long ago did patient quit smoking: Quit age 24. alcohol intake: never substance use type: does not use ROS ROS Narrative General: Denies fever/chills HENT: Denies headache, denies stuffy nose, denies sore throat EYES: Denies changes in vision Resp: Denies cough, denies shortness of breath Cardiac: Denies chest pain GI: Denies abdominal pain, denies changes in bowel, denies nausea/vomiting : Denies changes in urination Extremity: Denies swelling MSK: Pain in right lower extremity Neuro: Some chronic neuropathy without acute changes Heme: Denies any bleeding or bruising Skin: Denies rashes Psychiatric: Has some chronic depression Vital Signs Vital Signs Vital Signs: 01/19/23 07:13 01/19/23 13:40 Temperature 97.7 F L Temperature Source Temporal Pulse Rate 86 91 Respiratory Rate 22 H 15 Blood Pressure 141/70 H 139/88 H Blood Pressure Mean 93 105 Pulse Ox 98 97 Oxygen Delivery Method Room Air Room Air Weight Weight: 109.2 kg Body Mass Index (BMI) 36.6 Physical Exam Narrative General: Alert, oriented, no apparent distress HEENT: Atraumatic, normocephalic Eyes: Anicteric, normal conjunctiva, extraocular movements grossly intact Neck: Supple Respiratory: Clear to auscultation bilaterally, normal respiratory effort Cardiovascular: Regular rate GI: Soft, nontender, nondistended Extremities: No edema Musculoskeletal: Right lower extremity immobilized Neuro: No overt focal neurological deficits Skin: No rashes appreciated Psych: Cooperative Results Lab / Micro Data 01/19/23 07:24 01/19/23 07:24 Labs: Laboratory Results - last 24 hr 01/19/23 07:24: WBC 5.4, RBC 3.37 L, Hgb 10.2 L, Hct 34.2 L, MCV 101.5 H, MCH 30.3, MCHC 29.8 L, RDW Std Deviation 54.0 H, RDW Coeff of Ben 14.4, Plt Count 164, MPV 9.1, Immature Gran % (Auto) 0.400, Neut % (Auto) 59.5, Lymph % (Auto) 27.1, Canyon % (Auto) 8.2, Eos % (Auto) 4.1, Baso % (Auto) 0.7, Absolute Neuts (auto) 3.2, Absolute Lymphs (auto) 1.46, Nucleated RBC % 0, Sodium 140, Potassium 5.3 H, Chloride 106, Carbon Dioxide 25.0, Anion Gap 9, BUN 47 H, Creatinine 5.31 H, Estim Creat Clear Calc 11.79, Est GFR (MDRD) Af Amer 11 L, Est GFR (MDRD) Non-Af 9 L, BUN/Creatinine Ratio 8.9 L, Glucose 97, Calcium 8.5 Imagaing Radiology Impression Femur X-Ray 01/19/23 08:00 IMPRESSION: No demonstrated right femur fracture. Electronically Signed: Alejandro Blanchard MD at 8:24 EST , Foot X-Ray 01/19/23 08:00 IMPRESSION: Plantar calcaneal spur. No demonstrated acute fracture. Electronically Signed: Alejandro Blanchard MD at 8:37 EST , Knee X-Ray 01/19/23 08:00 IMPRESSION: New fracture of the proximal fibular shaft. More distinct transverse lucency across the proximal tibial shaft compared to the prior study, concerning for a new refracture. Stable tricompartment degenerative arthrosis. Electronically Signed: Alejandro Blanchard MD at 8:34 EST , Pelvis X-Ray 01/19/23 08:00 IMPRESSION: No fracture or dislocation in the pelvis. Mild degenerative changes in the hips. Electronically Signed: Deshawn Galeana MD at 8:36 EST , Tibia/Fibula X-Ray 01/19/23 08:00 IMPRESSION: New fracture of the proximal fibular shaft. Suspected transverse refracture of the proximal tibial shaft. Electronically Signed: Alejandro Blanchard MD at 8:30 EST , Lower Extremity CT 01/19/23 10:00 IMPRESSION: Complete fractures through the proximal tibial and fibular metadiaphyses. Subcutaneous soft tissue edema along the anterior aspect of the proximal calf. Electronically Signed: Alejandro Blanchard MD at 10:35 EST , Assessment & Plan Assessment/Plan (1) Fracture of right lower extremity: (2) History of COPD: (3) ESRD (end stage renal disease) on dialysis: PLAN: Plan #Complete fractures through R proximal tibia and fibula -Seen on CT -Schedule Tylenol, pain control, will give hydromorphone instead of morphine given end-stage renal disease -Long splint placed in ED, unclear if patient will end up being surgical candidate, per checkout no present plans for surgical intervention -Ortho consult, will make n.p.o. at midnight in the event she is deemed surgicalcandidate and if not patient will be okay to eat -We will need PT/OT #End-stage renal disease on dialysis Thursday, , Thursday -Nephrology consult -Potassium very slightly elevated at 5.3, will repeat -No signs or symptoms of fluid overload -Daily BMP -Daily weights, I's and O's #Type 2 diabetes mellitus -Glucose checks and sliding scale insulin -Holding glipizide and Trulicity #History of COPD -. Albuterol #Chronic anemia -Suspect secondary to renal disease/chronic disease -Appears to be at baseline -Continue to monitor CBC #Depression -Continue Zoloft #GERD -Continue PPI #Hypertension -Continue blood pressure medications and adjust as tolerated #DVT ppx: Heparin subcu Mone Riggs MD Time spent in the patient's overall evaluation,decision-making process, review of diagnostic data, adjustment of management, discussion with other providers, nursing nursing and ancillary staff involved in patient's care documentation, 60minutes Charges/Coding Visit Charges Inpatient E&M: 66736 Init Hosp L2 01/19/23 1401 <Electronically signed by Mone Riggs MD> Cosigner Signature (if applicable): CC: Dr. Mone Riggs MD; Dr. Ignacio Cheatham MD~ Signed [facility] Work Phone: 1(283) 964-765711-20-2023 History and physical note Author Mone Riggs [facility] January 19, 2023 2:01pm Note Date/Time January 19, 2023 1:51pm [facility] Medical Records Department [address] [place] [address] H&P Exam - Hospitalist 01/19/23 1343 MR#: [id number] Acct: [id number] Name: Margareth GONZALEZ Rep #:[id number] : 1965 57 From: Mone Riggs MD PCP: Dr. Ignacio Cheatham MD Status:ADM I N Location: [place] [address] HPI - General General Date of Admission: 01/19/23 Date of Service: 01/19/23 Chief Complaint: RLE pain HPI Narrative Margareth GONZALEZ, is a 57-year-old female with a history of COPD, type 2 diabetes mellitus, depression, hypertension, end-stage renal disease on dialysis Thursday,, Thursday, neuropathy, and obesity who presented to [facility] 01/19/2023 after a fall with right leg pain. She was walking out of her house and her leg gave out. She reportedly has been here twice this week with right leg pain but work-up has been negative. She had CT scan of right lower extremity in ED which showed complete fracture through proximal tibia and fibular metadiaphysis and soft tissue edema along the anterior aspect of the proximal calf. Surgery contacted who recommended patient have splint placed on leg and be medically admitted, unclear if she will end up being a surgical candidate, hospitalist contacted for admission. Patient evaluated at bedside and reports right lower extremity is in pain. She initially had a stress fracture of right lower extremity back in mid September and was following with Dr. Riggs with orthopedic surgery and had been doing well until roughly 01/09 when she began to have increasing pain. She was seen here twice since then with x-rays that did not show new/acute process. Today she was stepping out of her house and reports when she stepped down on her right leg just gave out. She presented here and was noted to have the broken tibia and fibula of the right lower extremity. She is on dialysis Thursday//Thursday and her last dialysis was last and she has been having pain with ambulation so she did not go. She does make urine however and does not feel short of breath or overloaded, she has no other new physical complaints. [facility] Medical History (Updated 01/19/23 @ 13:[address] Mone Riggs MD) Anxiety and depression Benign essential hypertension Bipolar disorder Chronic anemia COPD with asthma Diabetes mellitus, type 2 Fibromyalgia Former tobacco use History of diabetes mellitus, type II HLD (hyperlipidemia) HTN (hypertension) Kidney disease, chronic, stage IV (GFR 15-29 ml/min) Neuropathy Obesity Home Medications cholecalciferol (vitamin D3) 25 mcg (1,000 unit) capsule (Vitamin D3) 5,000 unitPO DAILY 10/03/13 [History Last Taken 01/18/23] omeprazole 20 mg capsule,delayed release 20 mg PO DAILY 08/23/14 [History Last Taken 01/18/23] glipizide 5 mg tablet 10 mg PO DAILY 04/28/15 [History Last Taken 01/18/23] labetalol 200 mg tablet 100 mg PO BID 04/28/15 [History Last Taken 01/18/23] aspirin 81 mg tablet,delayed release (Aspir-Low) 81 mg PO DAILY 05/27/16 [History Last Taken 01/18/23] melatonin 5 mg capsule 5 mg PO QHS 05/27/16 [History Last Taken 01/18/23] ferrous sulfate 325 mg (65 mg iron) tablet (Iron (ferrous sulfate)) 325 mg PO DAILY 11/25/16 [History Last Taken 01/18/23] amitriptyline 100 mg tablet 100 mg PO QHS sleep 09/10/22 [History Last Taken 01/18/23] atorvastatin 40 mg tablet 40 mg PO QHS hyperlipidemia 09/10/22 [History Last Taken 01/18/23] calcitriol 0.25 mcg capsule 0.25 mcg PO BID 09/10/22 [History Last Taken 01/18/23] dulaglutide 1.5 mg/0.5 mL subcutaneous pen injector (Trulicity) 1.5 mg subcut QWEEK diabetes 09/10/22 [History Last Taken 01/18/23] hydroxyzine HCl 50 mg tablet 50 mg PO Q6H PRN itching 09/10/22 [History Last Taken Unknown] sertraline 50 mg tablet 50 mg PO QHS bipolar 09/10/22 [History Last Taken 01/18/23] sodium bicarbonate 650 mg tablet 650 mg PO QHS 09/10/22 [History Last Taken 01/18/23] acetaminophen 325 mg tablet 650 mg (2 x 325 mg) PO Q4H PRN PRN Fever, pain 1- 1010 #0 tabs 09/11/22 [Rx Last Taken 01/19/23] oxycodone 5 mg tablet 5 mg PO Q8H PRN pain 3 days #10 tabs 10/15/22 [Rx Last Taken Unknown] docusate sodium 100 mg capsule (DOK) 100 mg PO DAILY #20 CAPSULES 01/15/23 [Rx Last Taken Unknown] Allergy/AdvReac Type Severity Reaction Status Date / Time balsam juan Allergy Unknown UNKNOWN Verified 01/19/23 07:12 mold Allergy Unknown unknown Verified 01/19/23 07:12 lisinopril Allergy unknown Verified 01/19/23 07:12 Penicillins Allergy Anaphylaxis Verified 01/19/23 07:12 tetracycline [Tetracycline] Allergy Anaphylaxis Verified 01/19/23 07:12 codeine AdvReac Abd Verified 01/19/23 07:12 cramps/diarrhea diphenhydramine HCl AdvReac Upset Verified 01/19/23 07:12 [From Benadryl] Stomach hydrocodone bitartrate AdvReac Abd Verified 01/19/23 07:12 [From Vicodin] cramps/diarrhea NSAIDS (Non-Steroidal AdvReac Unknown Verified 01/19/23 07:12 Anti-Inflamma Family History Mother Heart disease Hypertension Diabetes Kidney disease Father Diabetes Surgical History H/O gastric bypass H/O vascular surgery S/P appendectomy S/P cholecystectomy Social History household members: none Smoking Status: Former smoker how long ago did patient quit smoking: Quit age 24. alcohol intake: never substance use type: does not use ROS ROS Narrative General: Denies fever/chills HENT: Denies headache, denies stuffy nose, denies sore throat EYES: Denies changes in vision Resp: Denies cough, denies shortness of breath Cardiac: Denies chest pain GI: Denies abdominal pain, denies changes in bowel, denies nausea/vomiting : Denies changes in urination Extremity: Denies swelling MSK: Pain in right lower extremity Neuro: Some chronic neuropathy without acute changes Heme: Denies any bleeding or bruising Skin: Denies rashes Psychiatric: Has some chronic depression Vital Signs Vital Signs Vital Signs: 01/19/23 07:13 01/19/23 13:40 Temperature 97.7 F L Temperature Source Temporal Pulse Rate 86 91 Respiratory Rate 22 H 15 Blood Pressure 141/70 H 139/88 H Blood Pressure Mean 93 105 Pulse Ox 98 97 Oxygen Delivery Method Room Air Room Air Weight Weight: 109.2 kg Body Mass Index (BMI) 36.6 Physical Exam Narrative General: Alert, oriented, no apparent distress HEENT: Atraumatic, normocephalic Eyes: Anicteric, normal conjunctiva, extraocular movements grossly intact Neck: Supple Respiratory: Clear to auscultation bilaterally, normal respiratory effort Cardiovascular: Regular rate GI: Soft, nontender, nondistended Extremities: No edema Musculoskeletal: Right lower extremity immobilized Neuro: No overt focal neurological deficits Skin: No rashes appreciated Psych: Cooperative Results Lab / Micro Data 01/19/23 07:24 01/19/23 07:24 Labs: Laboratory Results - last 24 hr 01/19/23 07:24: WBC 5.4, RBC 3.37 L, Hgb 10.2 L, Hct 34.2 L, MCV 101.5 H, MCH 30.3, MCHC 29.8 L, RDW Std Deviation 54.0 H, RDW Coeff of Ben 14.4, Plt Count 164, MPV 9.1, Immature Gran % (Auto) 0.400, Neut % (Auto) 59.5, Lymph % (Auto) 27.1, Canyon % (Auto) 8.2, Eos % (Auto) 4.1, Baso % (Auto) 0.7, Absolute Neuts (auto) 3.2, Absolute Lymphs (auto) 1.46, Nucleated RBC % 0, Sodium 140, Potassium 5.3 H, Chloride 106, Carbon Dioxide 25.0, Anion Gap 9, BUN 47 H, Creatinine 5.31 H, Estim Creat Clear Calc 11.79, Est GFR (MDRD) Af Amer 11 L, Est GFR (MDRD) Non-Af 9 L, BUN/Creatinine Ratio 8.9 L, Glucose 97, Calcium 8.5 Imagaing Radiology Impression Femur X-Ray 01/19/23 08:00 IMPRESSION: No demonstrated right femur fracture. Electronically Signed: Alejandro Blanchard MD at 8:24 EST , Foot X-Ray 01/19/23 08:00 IMPRESSION: Plantar calcaneal spur. No demonstrated acute fracture. Electronically Signed: Alejandro Blanchard MD at 8:37 EST , Knee X-Ray 01/19/23 08:00 IMPRESSION: New fracture of the proximal fibular shaft. More distinct transverse lucency across the proximal tibial shaft compared to the prior study, concerning for a new refracture. Stable tricompartment degenerative arthrosis. Electronically Signed: Alejandro Blanchard MD at 8:34 EST , Pelvis X-Ray 01/19/23 08:00 IMPRESSION: No fracture or dislocation in the pelvis. Mild degenerative changes in the hips. Electronically Signed: Deshawn Galeana MD at 8:36 EST , Tibia/Fibula X-Ray 01/19/23 08:00 IMPRESSION: New fracture of the proximal fibular shaft. Suspected transverse refracture of the proximal tibial shaft. Electronically Signed: Alejandro Blanchard MD at 8:30 EST , Lower Extremity CT 01/19/23 10:00 IMPRESSION: Complete fractures through the proximal tibial and fibular metadiaphyses. Subcutaneous soft tissue edema along the anterior aspect of the proximal calf. Electronically Signed: Alejandro Blanchard MD at 10:35 EST , Assessment & Plan Assessment/Plan (1) Fracture of right lower extremity: (2) History of COPD: (3) ESRD (end stage renal disease) on dialysis: PLAN: Plan #Complete fractures through R proximal tibia and fibula -Seen on CT -Schedule Tylenol, pain control, will give hydromorphone instead of morphine given end-stage renal disease -Long splint placed in ED, unclear if patient will end up being surgical candidate, per checkout no present plans for surgical intervention -Ortho consult, will make n.p.o. at midnight in the event she is deemed surgicalcandidate and if not patient will be okay to eat -We will need PT/OT #End-stage renal disease on dialysis Thursday, , Thursday -Nephrology consult -Potassium very slightly elevated at 5.3, will repeat -No signs or symptoms of fluid overload -Daily BMP -Daily weights, I's and O's #Type 2 diabetes mellitus -Glucose checks and sliding scale insulin -Holding glipizide and Trulicity #History of COPD -. Albuterol #Chronic anemia -Suspect secondary to renal disease/chronic disease -Appears to be at baseline -Continue to monitor CBC #Depression -Continue Zoloft #GERD -Continue PPI #Hypertension -Continue blood pressure medications and adjust as tolerated #DVT ppx: Heparin subcu Mone Riggs MD Time spent in the patient's overall evaluation,decision-making process, review of diagnostic data, adjustment of management, discussion with other providers, nursing nursing and ancillary staff involved in patient's care documentation, 60minutes Charges/Coding Visit Charges Inpatient E&M: 48296 Init Hosp L2 01/19/23 1401 <Electronically signed by Mone Riggs MD> Cosigner Signature (if applicable): CC: Dr. Mone Riggs MD; Dr. Ignacio Cheatham MD~ Signed [facility] Work Phone: [phone]) 363-433911-20-2023 Miscellaneous Notes* Telephone Encounter - Emmie Poe LPN - 01/19/2023 2:17 PM EST Pt calls to report they are admitting her to [facility]. Pt reports that she is going to need surgery on leg/knee. Pt cancelled appt for with pcp as she will be unavailable. Emmie Poe LPN * Telephone Encounter - Claudette Cordero LPN - 01/15/2023 11:22 AM EST Pt's sister Halle Braragan is calling to let you know she is going to diaylsis and pick up driver pt to take her to [facility] ER for the 2nd time this week. Again pt is not able to walk and this time per sister pt issaying it is 3 times worse that it was earlier this week. Sister reports something is going to haveto be done. Pt has an apt on 01-21-23 for her 3 month follow up. Claudette Cordero LPN [facility] Discharge summary Author Yariel Wilks [facility] January 19, 2023 4:10pm Note Date/Time January 19, 2023 7:28am [facility] Medical Records Department [address] [place] [address] Emergency Department Summary 01/19/23 MR#: [id number] Acct: [id number] Name: Margareth GONZALEZ Rep #:[id number] : 1965 57 From: Yariel Wilks DO PCP: Dr. Ignacio Cheatham MD Status:ADM I N Location: [place] [address] HPI History of Present Illness Chief Complaint: Lower Extremity Injury Narrative Narrative: 57-year-old female with right leg pain. Patient states she had a fall today. She was walking out of her house and her leg gave out on her. Patient reports pain throughout the entire leg from the hip to the tip of her toes. She cannot localize any pain. Denies numbness or tingling. Patient states she fell on herbuttocks and did not actually injure her leg initially but then reports that maybe her leg was tucked under her. Denies head injury or LOC. She is not on any blood thinners. She takes a daily aspirin. She states she was otherwise inher normal state of health prior to the fall. She is end-stage renal disease ondialysis Thursday, Thursday, Thursday. Patient reports she is been here twice thisweek with right leg pain and she states nobody found anything. [facility] Medical History (Updated 01/19/23 @ 13:[address] Mone Riggs MD) Anxiety and depression Benign essential hypertension Bipolar disorder Chronic anemia COPD with asthma Diabetes mellitus, type 2 Fibromyalgia Former tobacco use History of diabetes mellitus, type II HLD (hyperlipidemia) HTN (hypertension) Kidney disease, chronic, stage IV (GFR 15-29 ml/min) Neuropathy Obesity Home Medications cholecalciferol (vitamin D3) 25 mcg (1,000 unit) capsule (Vitamin D3) 5,000 unitPO DAILY 10/03/13 [History Last Taken 01/18/23] omeprazole 20 mg capsule,delayed release 20 mg PO DAILY 08/23/14 [History Last Taken 01/18/23] glipizide 5 mg tablet 10 mg PO DAILY 04/28/15 [History Last Taken 01/18/23] labetalol 200 mg tablet 100 mg PO BID 04/28/15 [History Last Taken 01/18/23] aspirin 81 mg tablet,delayed release (Aspir-Low) 81 mg PO DAILY 05/27/16 [History Last Taken 01/18/23] melatonin 5 mg capsule 5 mg PO QHS 05/27/16 [History Last Taken 01/18/23] ferrous sulfate 325 mg (65 mg iron) tablet (Iron (ferrous sulfate)) 325 mg PO DAILY 11/25/16 [History Last Taken 01/18/23] amitriptyline 100 mg tablet 100 mg PO QHS sleep 09/10/22 [History Last Taken 01/18/23] atorvastatin 40 mg tablet 40 mg PO QHS hyperlipidemia 09/10/22 [History Last Taken 01/18/23] calcitriol 0.25 mcg capsule 0.25 mcg PO BID 09/10/22 [History Last Taken 01/18/23] dulaglutide 1.5 mg/0.5 mL subcutaneous pen injector (Trulicity) 1.5 mg subcut QWEEK diabetes 09/10/22 [History Last Taken 01/18/23] hydroxyzine HCl 50 mg tablet 50 mg PO Q6H PRN itching 09/10/22 [History Last Taken Unknown] sertraline 50 mg tablet 50 mg PO QHS bipolar 09/10/22 [History Last Taken 01/18/23] sodium bicarbonate 650 mg tablet 650 mg PO QHS 09/10/22 [History Last Taken 01/18/23] acetaminophen 325 mg tablet 650 mg (2 x 325 mg) PO Q4H PRN PRN Fever, pain 1- 10/10 #0 tabs 09/11/22 [Rx Last Taken 01/19/23] oxycodone 5 mg tablet 5 mg PO Q8H PRN pain 3 days #10 tabs 10/15/22 [Rx Last Taken Unknown] docusate sodium 100 mg capsule (DOK) 100 mg PO DAILY #20 CAPSULES 01/15/23 [Rx Last Taken Unknown] Allergy/AdvReac Type Severity Reaction Status Date / Time julian juan Allergy Unknown UNKNOWN Verified 01/19/23 07:12 mold Allergy Unknown unknown Verified 01/19/23 07:12 lisinopril Allergy unknown Verified 01/19/23 07:12 Penicillins Allergy Anaphylaxis Verified 01/19/23 07:12 tetracycline [Tetracycline] Allergy Anaphylaxis Verified 01/19/23 07:12 codeine AdvReac Abd Verified 01/19/23 07:12 cramps/diarrhea diphenhydramine HCl AdvReac Upset Verified 01/19/23 07:12 [From Benadryl] Stomach hydrocodone bitartrate AdvReac Abd Verified 01/19/23 07:12 [From Vicodin] cramps/diarrhea NSAIDS (Non-Steroidal AdvReac Unknown Verified 01/19/23 07:12 Anti-Inflamma Family History Mother Heart disease Hypertension Diabetes Kidney disease Father Diabetes Surgical History H/O gastric bypass H/O vascular surgery S/P appendectomy S/P cholecystectomy Social History household members: none Smoking Status: Former smoker how long ago did patient quit smoking: Quit age 24. alcohol intake: never substance use type: does not use ROS ROS ED Constitutional Constitutional ED: Denies chills, fever(s) or sweats Eyes Eyes: Denies blurry vision or change in vision ENT ENT ED: Denies ear pain or sore throat Cardiovascular Cardiovascular: Denies chest pain, palpitations or racing heartbeat Respiratory/Chest Respiratory/Chest: Denies cough, dyspnea or sputum Gastrointestinal Gastrointestinal: Denies abdominal pain, constipation, diarrhea, nausea or vomiting Genitourinary Genitourinary ED: Denies dysuria, hematuria or urinary frequency Musculoskeletal Musculoskeletal: Reports other Details: Right hip, femur, knee, tib-fib, ankle, foot pain ; Denies arthralgias, myalgias or neck pain Integumentary Denies abscess, Abrasions or rash Neurologic Neurologic: Denies headache(s), paresthesias or weakness Psychiatric Psychiatric: Denies anxiety, depression, suicidal ideation or suicidal thoughts Endocrine Endocrinology: Denies polydipsia or polyuria EXAM Physical Exam Const Vital Signs: 01/19/23 07:13 01/19/23 13:40 Temperature 97.7 F L Temperature Source Temporal Pulse Rate 86 91 Respiratory Rate 22 H 15 Blood Pressure 141/70 H 139/88 H Blood Pressure Mean 93 105 Pulse Ox 98 97 Oxygen Delivery Method Room Air Room Air Positive well nourished and obese Nutritional Appearance: obese HEENT Reports moist mucous membranes normocephalic and atraumatic Chest Wall inspection of chest normal Resp normal respiratory effort Cardio regular rate and regular rhythm GI non-tender Back/Spine Thoracic Spine / Upper Back: Negative for thoracic spinal tenderness Lumbar Spine / Lower Back: Negative for lumbar spinal tenderness or straight legraise positive - left Extremity Extremity Narrative: Tenderness to palpation diffusely over the right hip, posterior femur, patella and tib-fib. She also has had some tenderness to palpation over the right ankleand foot. Neurovascular intact with brisk cap refill to all 5 toes. Limited range of motion secondary to pain and the patient is immobilized in a splint currently. I do not see any evidence of deformity initially. Neuro oriented x3 and CN's II-XII intact bilaterally Sensorium / Orientation: alert Motor Exam: strength 5/5 throughout Psych mental status grossly normal MDM MDM MDM Narrative Medical decision making narrative: Patient presenting with right leg pain after mechanical fall. She has pain in the right hip, right femur, right knee, right tib-fib, right ankle, right foot. Differential includes hip fracture femur fracture patellar fracture quadriceps tendon rupture, patellar tendon rupture, tib-fib fracture, ankle fracture, foot fracture. Currently I am unable to fully assess the patient's leg as she is immobilized in a splint. Patient medicated with morphine, Zofran. X-rays of the lower extremity will be obtained. X-rays of the right hip, right femur, right knee, right tib-fib, right foot on my interpretation do not show both bonefracture of the proximal tibia and fibula. Discussed with Dr. Tucker who recommended getting a CT of the lower extremity to include the fracture. This was performed and shows a fracture again in the same place. Screening lab work at baseline. Patient end-stage renal disease on dialysis. Patient given a couple doses of morphine. Dr. Tucker recommended that I do a long posterior splint which was performed. This was well-padded and fabricated by myself. Patient tolerated procedure well. Neurovascular intact post procedurally. Patient discussed with hospitalist for admission. Impression 1. Proximal fibular fracture 2. Proximal tibia fracture Lab Data Attestation: I reviewed the patient's lab results. Labs: Laboratory Results - last 24 hr 01/19/23 07:24 WBC 5.4 RBC 3.37 L Hgb 10.2 L Hct 34.2 L MCV 101.5 H MCH 30.3 MCHC 29.8 L RDW Std Deviation 54.0 H RDW Coeff of Ben 14.4 Plt Count 164 MPV 9.1 Immature Gran % (Auto) 0.400 Neut % (Auto) 59.5 Lymph % (Auto) 27.1 Canyon % (Auto) 8.2 Eos % (Auto) 4.1 Baso % (Auto) 0.7 Absolute Neuts (auto) 3.2 Absolute Lymphs (auto) 1.46 Nucleated RBC % 0 Sodium 140 Potassium 5.3 H Chloride 106 Carbon Dioxide 25.0 Anion Gap 9 BUN 47 H Creatinine 5.31 H Estim Creat Clear Calc 11.79 Est GFR (MDRD) Af Amer 11 L Est GFR (MDRD) Non-Af 9 L BUN/Creatinine Ratio 8.9 L Glucose 97 Calcium 8.5 Radiography Diagnostic Testing: Clinical Impression(s) from Imaging Studies Femur X-Ray 01/19/23 08:00 IMPRESSION: No demonstrated right femur fracture. Electronically Signed: Alejandro Blanchard MD at 8:24 EST , Foot X-Ray 01/19/23 08:00 IMPRESSION: Plantar calcaneal spur. No demonstrated acute fracture. Electronically Signed: Alejandro Blanchard MD at 8:37 EST , Knee X-Ray 01/19/23 08:00 IMPRESSION: New fracture of the proximal fibular shaft. More distinct transverse lucency across the proximal tibial shaft compared to the prior study, concerning for a new refracture. Stable tricompartment degenerative arthrosis. Electronically Signed: Alejandro Blanchard MD at 8:34 EST , Pelvis X-Ray 01/19/23 08:00 IMPRESSION: No fracture or dislocation in the pelvis. Mild degenerative changes in the hips. Electronically Signed: Deshawn Galeana MD at 8:36 EST , Tibia/Fibula X-Ray 01/19/23 08:00 IMPRESSION: New fracture of the proximal fibular shaft. Suspected transverse refracture of the proximal tibial shaft. Electronically Signed: Alejandro Blanchard MD at 8:30 EST , Lower Extremity CT 01/19/23 10:00 IMPRESSION: Complete fractures through the proximal tibial and fibular metadiaphyses. Subcutaneous soft tissue edema along the anterior aspect of the proximal calf. Electronically Signed: Alejandro Blanchard MD at 10:35 EST , Discharge Plan Triage Chief Complaint: Lower Extremity Injury ED Provider: Yariel Wilks Dx/Rx/DC Orders Primary Care Provider: Ignacio Cheatham What to do if you have Problems For any increased pain, shortness of breath, bleeding, nausea or vomiting, chestpain, or any unexpected problems, contact your Primary Care Provider. Call [facility] ([phone]) or report to the closest Emergency Room. Call 911 if necessary. 01/19/23 1610 <Electronically signed by Yariel Wilks DO> Cosigner Signature (if applicable): CC: Dr. Ignacio Cheatham MD ~ Signed [facility] Work Phone: 1(182) 362-724611-16-2023 Miscellaneous Notes* Telephone Encounter - Efra Box Ma - 01/15/2023 2:59 PM EST Appt 01/21/23 * Telephone Encounter - Efra Box Ma - 01/02/2023 4:14 PM EDT Mychart message sent * Telephone Encounter - Ignacio Cheatham MD - 01/02/2023 2:47 PM EDT See previous message. Still have not heard back from her. Looking at chart, really needs seen for an update to complete these appropriately. * Telephone Encounter - Sury Corral LPN - 12/30/2022 2:41 PM EDT Left message to return call * Telephone Encounter - Ignacio Cheatham MD - 12/29/2022 7:36 PM EDT Verify from her. Only got the Aflec from her. Where are we with dialysis and her stress fracture. Is this to continue her off work.? I need updates to fully complete. * Telephone Encounter - Chloe Carpenter LPN - 12/29/2022 2:48 PM EDT We only one [employer] form is this correct? * Telephone Encounter - Ignacio Cheatham MD - 12/26/2022 9:02 PM EDT I am only seeing one form here. Do we have both? * Telephone Encounter - Chloe Carpenter LPN - 12/24/2022 1:07 PM EDT Form placed on Dr Cheatham's desk for review. 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 States that the short term forms will as of 01/22. intermediate frame tender can be discussed further at upcoming appt if needed. [facility] Discharge summary Author Dakota Cobos [facility] January 13, 2023 2:20pm Note Date/Time January 13, 2023 12:22pm [facility] Medical Records Department [address] [place] [address] Emergency Department Summary 01/13/23 MR#: [id number] Acct: [id number] Name: Margareth GONZALEZ Rep #:[id number] : 1965 57 From: Dakota Cobos MD PCP: Dr. Ignacio Cheatham MD Status:REG E R Location: ED HPI History of Present Illness Chief Complaint: Lower Extremity Injury Informant: patient Narrative Narrative: Patient presents with right proximal tib-fib area pain. Patient states she fractured her leg back in mid September. But it was treated with just rest. He was doing better but now it seems to hurt in about the same spot over the last few days. It hurts with weightbearing. But there is no swelling. All the pain is in the anterior and slightly lateral. No posterior. No swelling. No fevers or chills. No knee swelling. Patient is on dialysis. She just left dialysis here before coming in now. She states she also has spinal stenosis that will sometimes act and cause the same pain in her leg but her back is not hurting. I looked over prior records and outpatient x-rays and see that she had a proximal tibia stress fracture back in mid September. [facility] Medical History Anxiety and depression Benign essential hypertension Bipolar disorder Chronic anemia COPD with asthma Diabetes mellitus, type 2 Fibromyalgia Former tobacco use History of diabetes mellitus, type II HLD (hyperlipidemia) HTN (hypertension) Kidney disease, chronic, stage IV (GFR 15-29 ml/min) Neuropathy Obesity Home Medications cholecalciferol (vitamin D3) 25 mcg (1,000 unit) capsule (Vitamin D3) 5,000 unitPO DAILY 10/03/13 [History Last Taken 1 Day Ago ~11/24/16] omeprazole 20 mg capsule,delayed release 20 mg PO DAILY 08/23/14 [History Last Taken 11/25/16] glipizide 5 mg tablet 10 mg PO DAILY 04/28/15 [History Last Taken 11/25/16] labetalol 200 mg tablet 200 mg PO BID 04/28/15 [History Last Taken 11/25/16] aspirin 81 mg tablet,delayed release (Aspir-Low) 81 mg PO DAILY 05/27/16 [History Last Taken 11/25/16] melatonin 5 mg capsule 5 mg PO QHS 05/27/16 [History Last Taken 1 Day Ago ~11/24/16] ferrous sulfate 325 mg (65 mg iron) tablet (Iron (ferrous sulfate)) 325 mg PO DAILY 11/25/16 [History Last Taken 11/25/16] amitriptyline 100 mg tablet 100 mg PO QHS sleep 09/10/22 [History Last Taken 09/08/22 21:00] apixaban 2.5 mg tablet (Eliquis) 2.5 mg PO BID 09/10/22 [History Last Taken Unknown] atorvastatin 40 mg tablet 40 mg PO QHS hyperlipidemia 09/10/22 [History Last Taken Unknown] calcitriol 0.25 mcg capsule 0.25 mcg PO BID 09/10/22 [History Last Taken Unknown] dulaglutide 1.5 mg/0.5 mL subcutaneous pen injector (Trulicity) mg subcut .everysunday diabetes 09/10/22 [History Last Taken 09/07/22 20:01] hydroxyzine HCl 50 mg tablet 50 mg PO Q6H PRN itching 09/10/22 [History Last Taken Unknown] sertraline 50 mg tablet 50 mg PO QHS bipolar 09/10/22 [History Last Taken 09/08/22 21:00] sevelamer HCl 800 mg tablet 1,600 mg PO QHS 09/10/22 [History Last Taken Unknown] sodium bicarbonate 650 mg tablet 650 mg PO QHS 09/10/22 [History Last Taken Unknown] Remove Patch 1 patch topical DAILY@2200 ##0 09/11/22 [Rx Last Taken Unknown] acetaminophen 325 mg tablet 650 mg (2 x 325 mg) PO Q4H PRN PRN Fever, pain 1- 12/09 #0 tabs 09/11/22 [Rx Last Taken Unknown] insulin lispro 100 unit/mL subcutaneous pen (Humalog KwikPen (U-100) Insulin) See Protocol subcut ACHS #0 mL 09/11/22 [Rx Last Taken Unknown] lidocaine 5 % topical patch 2 patch topical DAILY #0 ea 09/11/22 [Rx Last Taken Unknown] methylprednisolone 4 mg tablets in a dose pack 4 mg PO 0800,1200,1700 #0 tabs 09/11/22 [Rx Last Taken Unknown] oxycodone 5 mg tablet 5 mg PO Q4H PRN PRN Pain Score 4-10 3 days #12 tabs 09/11/22 [Rx Last Taken Unknown] oxycodone 5 mg tablet 5 mg PO Q8H PRN pain 3 days #10 tabs 10/15/22 [Rx Last Taken Unknown] naproxen 500 mg tablet (Naprosyn) 500 mg PO BID PRN pain #14 tabs 01/13/23 [Rx Last Taken Unknown] Allergy/AdvReac Type Severity Reaction Status Date / Time julian juan Allergy Unknown UNKNOWN Verified 01/13/23 12:03 mold Allergy Unknown unknown Verified 01/13/23 12:03 lisinopril Allergy unknown Verified 01/13/23 12:03 Penicillins Allergy Anaphylaxis Verified 01/13/23 12:03 tetracycline [Tetracycline] Allergy Anaphylaxis Verified 01/13/23 12:03 codeine AdvReac Abd Verified 01/13/23 12:03 cramps/diarrhea diphenhydramine HCl AdvReac Upset Verified 01/13/23 12:03 [From Benadryl] Stomach hydrocodone bitartrate AdvReac Abd Verified 01/13/23 12:03 [From Vicodin] cramps/diarrhea NSAIDS (Non-Steroidal AdvReac Unknown Verified 01/13/23 12:03 Anti-Inflamma Family History Mother Heart disease Hypertension Diabetes Kidney disease Father Diabetes Surgical History H/O gastric bypass H/O vascular surgery S/P appendectomy S/P cholecystectomy Social History household members: none Smoking Status: Former smoker how long ago did patient quit smoking: Quit age 24. alcohol intake: never substance use type: does not use ROS ROS ED Constitutional Constitutional ED: Denies chills or fever(s) ENT ENT ED: Denies rhinorrhea Cardiovascular Cardiovascular: Denies chest pain or palpitations Respiratory/Chest Respiratory/Chest: Denies cough or dyspnea Gastrointestinal Gastrointestinal: Denies nausea or vomiting Musculoskeletal Musculoskeletal: Reports other Details: See history of present illness. Integumentary Denies abscess or rash Neurologic Neurologic: Reports other Details: Patient has some chronic neuropathy and paresthesias but there is no difference recently. The pain is the only change. This is similar to her stress fracture but also similar to her spinal stenosis pain. ; Denies paresthesias or weakness Hematologic/Lymphatic Hematologic/Lymphatic: Reports other Details: Patient is given heparin with dialysis but denies any other anticoagulation ; Denies easy bleeding or easy bruising Allergic/Immunologic Allergic/Immunologic ED: Denies urticaria EXAM Physical Exam Narrative Exam Narrative: CONSTITUTIONAL: Patient is nontoxic in appearance. The patient looks comfortable. Work of breathing looks normal. HEENT: No notable trauma. Mucous membranes moist. EYES: No pallor. NECK:No JVD. No stridor. CARDIOVASCULAR: Regular rate. Regular rhythm. No notable murmur. No JVD. RESPIRATORY: No respiratory distress. Breathing is unlabored. Saturations are normal at 100% on room air showing no hypoxia GASTROINTESTINAL: Not distended. Bowel sounds are normal. No tenderness. MUSCULOSKELETAL: No notable back pain. Examination of the legs show no asymmetry. There is no cord. No tenderness along the deep venous system. No swelling. No distended veins. Patient has some tenderness near the tibial tuberosity and just lateral to this in the notch between fibula and tibia. But the knee itself is not at all swollen. There is no effusion. Range of motion is good. There are no skin changes noted. NEUROLOGICAL: Patient is alert and appropriate. No focal deficit noted. SKIN: No noted rashes. No diaphoresis. No redness. No vesicles or lesions. PSYCHIATRIC: Patient is calm. Mood is appropriate. Const Vital Signs: 01/13/23 12:03 Temperature 96.7 F L Temperature Source Temporal Pulse Rate 88 Respiratory Rate 16 Blood Pressure 103/80 Blood Pressure Mean 87 Pulse Ox 100 Oxygen Delivery Method Room Air MDM MDM MDM Narrative Medical decision making narrative: My independent interpretation the patient's two-view x-ray of the right tib-fib shows healing area at the proximal tibia. Radiology also notes that there is a lucency in a portion. This posterior medial. Her pain is more anterior lateral. She has never had a skin lesion. She has none now. She denies any recent infection. She has had no fevers or chills. Her blood pressures been controlled. I talked with her about these films. But this is not classic presentation of infection. This is probably more likely related to variability of healing. She states she just had x-rays 2 weeks ago. I do not have access to those. She has an orthopedic surgeon that is in my [place] but she states she thinks he comes down here in [facility] [place] also. I recommend she call him tofor close follow-up to have this rechecked. They may need repeat x- rays or these x-rays may be similar to her healing pattern. But at this point I do not think further blood work admission antibiotic or biopsy or surgery would be appropriate. Patient requested nonsteroidals for the pain. They are listed on her allergies but she states that is before she was on dialysis. She states she talk to her paper cutter who said she is allowed to have nonsteroidals now. She states these work well for pain and she does not want anything stronger. She states she just wants to take something at night for sleeping. I will write her for some Naprosyn. We discussed taking it with meals. We also discussed returning if she has worsening pain any development of redness swelling fevers or other concerns. Radiography Diagnostic Testing: Clinical Impression(s) from Imaging Studies Tibia/Fibula X-Ray 01/13/23 13:02 IMPRESSION: Healed fracture in the proximal tibia with focal lucency as described. Infectious processes should be ruled out. Electronically Signed: Piter Dietrich MD at 13:16 EST , Discharge Plan Triage Chief Complaint: Lower Extremity Injury ED Provider: Dakota Cobos Dx/Rx/DC Orders Clinical Impression: Stress fracture of right tibia with delayed healing, Right leg pain Instructions: ED Pain, Acute, Uncertain Cause Prescriptions: New naproxen [Naprosyn] 500 mg tablet 500 mg PO BID PRN (Reason: pain) Qty: 14 0RF No Action cholecalciferol (vitamin D3) [Vitamin D3] 1,000 UNIT capsule 5,000 unit PO DAILY omeprazole 20 MG capsule 20 mg PO DAILY labetalol 200 MG tablet 200 mg PO BID glipizide 5 MG tablet 10 mg PO DAILY aspirin [Aspir-Low] 81 MG tablet,delayed release (DR/EC) 81 mg PO DAILY melatonin 5 MG capsule 5 mg PO QHS ferrous sulfate [Iron (ferrous sulfate)] 325 MG tablet 325 mg PO DAILY atorvastatin 40 mg tablet 40 mg PO QHS calcitriol 0.25 mcg capsule 0.25 mcg PO BID Trulicity 1.5 mg/0.5 mL pen injector SUBCUT .every thursday sevelamer HCl 800 mg tablet 1,600 mg PO QHS sodium bicarbonate 650 mg tablet 650 mg PO QHS Eliquis 2.5 mg tablet 2.5 mg PO BID sertraline 50 mg tablet 50 mg PO QHS hydroxyzine HCl 50 mg tablet 50 mg PO Q6H PRN (Reason: itching) amitriptyline 100 mg tablet 100 mg PO QHS acetaminophen 325 mg Tablet 650 mg PO Q4H PRN PRN (Reason: Fever, pain 1-/10) Qty: 0 0RF insulin lispro [Humalog KwikPen Insulin] 100 unit/mL Insulin Pen See Protocol subcut ACHS Qty: 0 0RF Protocol: 3. Sliding Scale Insulin Med Dosing Condition: 150-189 mg/dl = 1 unit Condition: 190-229 mg/dl = 2 units Condition: 230-269 mg/dl = 3 units Condition: 270-309 mg/dl = 4 units Condition: 310-349 mg/dl = 5 units Condition: 350-399 mg/dl = 6 units Condition: 400-449 mg/dl = 7 units Condition: Greater than 449 call physician Protocol Text: - Use for Total Daily Dose of Insulin 37-55 units - Obsese, infected, or steroid patients MEDIUM DOSING ALGORITHIM lidocaine 5 % Adhesive Patch,Medicated 2 patch topical DAILY Qty: 0 0RF Protocol: *Topical Application Instructions APPLICATION INSTRUCTIONS: R hip, R knee methylprednisolone 4 mg Tablets,Dose Pack 4 mg PO 0800,1200,1700 Qty: 0 0RF oxycodone 5 mg Tablet 5 mg PO Q4H PRN PRN (Reason: Pain Score 4-10) 3 Days Qty: 12 0RF Remove Patch 1 patch topical DAILY@2200 Qty: 0 0RF oxycodone 5 mg tablet 5 mg PO Q8H PRN (Reason: pain) 3 Days Qty: 10 0RF Primary Care Provider: Ignacio Cheatham Referrals: Ignacio Cheatham MD [Primary Care Provider] - As Needed Activity Restrictions/Additional Instructions: Call your orthopedic surgeon for close follow-up, recheck, repeat x-rays. Disposition Disposition: Home, Self Care What to do if you have Problems For any increased pain, shortness of breath, bleeding, nausea or vomiting, chestpain, or any unexpected problems, contact your Primary Care Provider. Call [facility] ([phone]) or report to the closest Emergency Room. Call 911 if necessary. 01/13/23 1420 <Electronically signed by Dakota Cobos MD> Cosigner Signature (if applicable): CC: Dr. Ignacio Cheatham MD ~ Signed [facility] Work Phone: 1(112) 451-456310-16-2023 History of Present illness Narrative* Reagan Riggs MD - 12/15/2022 3:33 PM EDT Reagan Riggs MD Department of Orthopaedics Orthopaedics [address] [place] [address] Dept: [phone] Dept December 15, 2022 CHIEF COMPLAINT: Follow Up of the Right Knee and 5 weeks post visit right tibia stress fracture HPI Patient here for follow up right tibia stress fracture. Patient is continuing to have pain. Stoppedusing the cane to ambulate last Thursday. X-rays done today. Taking Tylenol for the pain and takes the edge off. 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 She still has some mild tenderness at the fracture site consistentwith the healing process. She does report having a lot of troubles with her lumbar spine and she wishes to get in with [facility] [place]. He can continue slow and steady activity with the lower extremity to her pain tolerance. OBJECTIVE: Ms. Margareth Gonzalez is a pleasant 57 year old in no apparent distress. Gen:LMP 09/20/2014 nl development, non obese, no deformities ENT: Normocephalic, normal hearing, moist mucosa CV: Pulses:DP/PT= 2+ and symmetric, capillary refill < 2 secs, no peripheral edema/varicosities Skin: no rash, bruising or lesions. Good turgor. Psych: cooperative and appropriate, alert and oriented x 3, good mood and affect. Musculoskeletal: Swelling is down a bit. Very mildly tender still near the fracture site. Good range of motion at the knee. Imaging: IMPRESSION: Healing tibia fracture. Allergist/Md: PSCB Transcribe Date/Time: Dec 18 2022 7:46A Dictated by : DORENE BANKS MD This examination was interpreted and the report reviewed and electronically signed by: DORENE BANKS MD on Dec 18 2022 7:47AM EST Results-Findings * * *Final Report* * * DATE OF EXAM: Dec 15 2022 2:07PM [id number] - XR TIBIA FIBULA 2V AP/LAT RT / PROCEDURE REASON: Stress fracture of right tibia, initial encounter * * * * Physician Interpretation * * * * EXAMINATION: XR TIBIA FIBULA 2V AP/LAT RT HISTORY: Follow up after stress fracture of right proximal tibia. Stress fracture of right tibia, initial encounter . TECHNIQUE: XR TIBIA FIBULA 2V AP/LAT RT Laterality: RIGHT Number of different views (projections): 2 M: [id number] COMPARISON: 11/10/2022 RESULT: Again seen is a healing transverse fracture of the proximal tibial metaphysis with no change in alignment and increase in callus formation. Mild degenerative change of the right knee. Ankle joint spaces appear maintained. No acute fracture or dislocation. There are no bony erosions. Supporting Subjective Information Below: Past Surgical History: PAST SURGICAL HISTORY Procedure Laterality Date CHOLECYSTECTOMY 04/02/2011 COLONOSCOPY W/BIOPSY SINGLE/MULTIPLE 12/16/2007 DILATION & CURETTAGE DX&/THER NONOBSTETRIC Dilation & curettage EGD TRANSORAL BIOPSY SINGLE/MULTIPLE 12/16/2007 ESOPHAGOGASTRODUODENOSCOPY TRANSORAL DIAGNOSTIC age 14 EGD LAPAROSCOPIC APPENDECTOMY 05/16/2011 MIDLINE INSERTION/CONSULT 07/29/2012 Lap Paul-en-Y gastric bypass PAST SURGICAL HISTORY OF age 14 left knee surgery, for dislocation PAST SURGICAL HISTORY OF age 5 warts removed PAST SURGICAL HISTORY OF 03/02/2007 laser surgery to both eyes for diabetic retinopathy PAST SURGICAL HISTORY OF 04/26/2008 Bilateral eye surgery- vitrectomy PAST SURGICAL HISTORY OF 06/30/2008 Left eye air fluid exchange PAST SURGICAL HISTORY OF 04/09, 07/07 retinal vitrectomies PAST SURGICAL HISTORY OF Left 07/24/2022 Left forearm AVG with [address] Valenzuela STRESS TEST 200p, 2014 Normal results TUBAL LIGATION HX ablation at the same time Medications: Current Outpatient Medications Medication Sig acetaminophen (TYLENOL) 500 mg tablet Take 1,000 mg by mouth every 12 hours. amitriptyline (ELAVIL) 100 mg tablet Take 1 tablet by mouth daily at bedtime. aspirin, enteric coated (ADULT LOW DOSE ASPIRIN) 81 mg EC tablet Take 1 tablet by mouth once daily. atorvastatin (LIPITOR) 40 mg tablet Take 1 tablet by mouth daily at bedtime. For cholesterol. calcitriol (ROCALTROL) 0.25 mcg capsule Take 0.25 mcg by mouth once daily. cholecalciferol (VITAMIN D3) 5,000 unit tab Take 5,000 Units by mouth twice daily. diclofenac (VOLTAREN ARTHRITIS PAIN) 1 % topical gel Apply 2 g to affected area four times daily. ferrous sulfate 325 mg (65 mg iron) tablet Take 325 mg by mouth. flash glucose scanning reader (SimpleReachSTYLE FESTUS 2 READER) Use to check glucose 3 times daily and continuously. 1 per year. flash glucose sensor (FREESTYLE FESTUS 2 SENSOR) kit Use to check glucose 3 times daily and continuously. Change every 14 days. 6 per 90 day supply. glipiZIDE (GLUCOTROL XL) 5 mg 24 hr tablet Take 10 mg by mouth once daily. hydrOXYzine HCl (ATARAX) 50 mg tablet Take 1 tablet by mouth every 6 hours as needed for itching/rash. labetalol (TRANDATE) 100 mg tablet Take 1 tablet by mouth twice daily. lidocaine (LIDODERM) 5 % Apply 1 Patch as directed every 24 hours. melatonin 5 mg tablet Take 5 mg by mouth. As needed. omeprazole (PRILOSEC) 20 mg capsule Take 1 capsule by mouth once daily. ondansetron orally disintegrating (ZOFRAN ODT) 4 mg disintegrating tablet Take 1 tablet by mouth every 8 hours as needed for nausea/vomiting. oxyCODONE ir (OXYIR) 5 mg capsule Take 5 mg by mouth every 4 hours as needed for pain. oxyCODONE-acetaminophen (PERCOCET) 5-325 mg tablet Take 1 tablet by mouth every 6 hours as needed for pain. Mesoxqbn-Gx-Jae-Fe-FA ( VITAMIN) ORAL Tab Take 1 tablet by mouth once daily. sertraline (ZOLOFT) 50 mg tablet Take 1 tablet by mouth once daily. sodium bicarbonate 650 mg tablet Take 2 tablets by mouth twice daily. (Patient not taking: Reportedon 12/15/2022) tiZANidine HCl (ZANAFLEX) 2 mg capsule Take 1 capsule by mouth twice daily as needed. TRULICITY 1.5 mg/0.5 mL pen injector INJECT 1.5 MG UNDER THE SKIN ONCE A WEEK No current facility-administered medications for this visit. Allergies: Vicodin [Hydrocodone-Acetaminophen], Balsam 115, Benadryl [Diphenhydramine Hcl], Chamomile, Codeine, Lisinopril, Mold, Nsaids (Non- Steroidal Anti-Inflammatory Drug), Penicillins, Seasonal Allergies, Tetracycline, and Vanilla Extract ROS: General (negative for fatigue, malaise, weight loss/gain) HEENT (negative for headache, earache, recent vision changes, sinus pain, sore throat) Respiratory (no recent shortness of breath, hemoptysis) CV (negative for chest tightness, palpitations) Musculoskeletal (see HPI) Psych (no depression, anxiety) Reagan Riggs MD documented in this [facility]09-28-2023 Miscellaneous Notes* Telephone Encounter - Sarah Zaman Ma - 11/27/2022 4:43 PM EDT Form completed and faxed to [facility]. Confirmation received. Copy sent for scanning. * Telephone Encounter - Sarah Zaman Ma - 11/24/2022 3:40 PM EDT Type of form: Short-term Disability Form received via fax When form is completed, Fax form to [facility] at [phone]. Form has been forwarded to Nurse box for completion. Sarah Zaman Ma documented in this [facility]09-25-2023 Miscellaneous Notes* Telephone Encounter - Karla Bush MA - 11/24/2022 2:11 PM EDT See telephone encounter. Karla Bush MA * Telephone Encounter - Ameena Dumont RN - 11/24/2022 12:32 PM EDT x documented in this [facility]09-21-2023 Miscellaneous Notes* Telephone Encounter - Mackenzie Zamora APRN.BENEFITS ADMINISTRATOR - 11/20/2022 6:00 PM EDT Please notify patient that urine culture showed mixture of bacteria which suggests possible contamination upon collection. Advise her to hold the antibiotic and repeat the culture, order placed in chart. Will return to lab tomorrow for repeat culture Mackenzie Zamora APRN.BENEFITS ADMINISTRATOR [facility] History of Present illness Narrative* Kimberli Saleem APRN.CNP - 11/19/2022 11:44 AM EDT This note was created using [employer]. Subjective Margareth Gonzalez is a 57 year old female. 57 year old female with PMH DM, CKD with dialysis, GERD, HTN, hyperlipidemia presents for complaints of possible UTI Acute onset 3 days ago +frequency +burning +urgency Denies vaginal bleeding. Denies vaginal discharge Denies abdominal pain. Denies flank pain Denies recent coitus Denies concerns for possible STIl T-R-S dialysis Last dialysis yesterday. The history is provided by the patient. No speech and language tutor was used. UTI This is a new problem. The current episode started more than 2 days ago. The problem occurs every urination. The problem has been gradually worsening. The quality of the pain is described as burning.The pain is at a severity of 4/10. The pain is mild. There has been no fever. She is Not sexually active. Associated symptoms include frequency and urgency. Pertinent negatives include no chills, no sweats, no nausea, no vomiting, no discharge, no hematuria, no hesitancy, no possible and no flank pain. She has tried nothing for the symptoms. Her past medical history does not include kidney stones, single kidney, urological procedure, recurrent UTIs, urinary stasis or catheterization. PAST MEDICAL HISTORY Diagnosis Date Acute gastritis without mention of hemorrhage Allergic rhinitis Anaphylaxis Anemia Back pain Benign essential tremor Bipolar I disorder, most recent episode (or current) unspecified sectrum Bone mass Candidiasis, intertrigo Chronic kidney disease Contraceptive management Depression Diabetes (HCC) Diarrhea DVT, lower extremity (HCC) 08/2014 Right leg (6) Esophagitis ESRD (end stage renal disease) ([facility]) 07/03/2022 Facial fracture due to fall ([facility]) Fatigue Fibromyalgia Fracture Fracture of shaft of fibula GERD (gastroesophageal reflux disease) HLD (hyperlipidemia) on tricor Hyperlipidemia Hypertension Hypomagnesemia Hypopotassemia IBS (irritable bowel syndrome) Insomnia Intertrigo Knee pain Morbid obesity ([facility]) 03/11/2011 Myalgia Nausea Neck pain Neuropathy Nocturnal leg cramps Non-cardiac chest pain Obesity CASSIE (obstructive sleep apnea) 07/08/2011 Other polyp of sinus Other specified anemias Personal history of unspecified urinary disorder PMH - PAST MEDICAL HISTORY OF left knee surgery x3 Pulmonary nodules Pyelonephritis, acute Restless leg Ruptured appendicitis S/P gastric bypass Snoring Type 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, not stated as uncontrolled(250.50) on oral medications and Lanuts Unspecified asthma(493.90) on inhalers Unspecified essential hypertension on medical management Upper abdominal pain Urinary frequency Vitamin D deficiency PAST SURGICAL HISTORY Procedure Laterality Date CHOLECYSTECTOMY 04/02/2011 COLONOSCOPY W/BIOPSY SINGLE/MULTIPLE 12/16/2007 DILATION & CURETTAGE DX&/THER NONOBSTETRIC Dilation & curettage EGD TRANSORAL BIOPSY SINGLE/MULTIPLE 12/16/2007 ESOPHAGOGASTRODUODENOSCOPY TRANSORAL DIAGNOSTIC age 14 EGD LAPAROSCOPIC APPENDECTOMY 05/16/2011 MIDLINE INSERTION/CONSULT 07/29/2012 Lap Paul-en-Y gastric bypass PAST SURGICAL HISTORY OF age 14 left knee surgery, for dislocation PAST SURGICAL HISTORY OF age 5 warts removed PAST SURGICAL HISTORY OF 03/02/2007 laser surgery to both eyes for diabetic retinopathy PAST SURGICAL HISTORY OF 04/26/2008 Bilateral eye surgery- vitrectomy PAST SURGICAL HISTORY OF 06/30/2008 Left eye air fluid exchange PAST SURGICAL HISTORY OF 04/09, 07/07 retinal vitrectomies PAST SURGICAL HISTORY OF Left 07/24/2022 Left forearm AVG with [address] Valenzuela STRESS TEST 200p, 2014 Normal results TUBAL LIGATION HX ablation at the same time ALLERGIES Vicodin [Hydrocodone-Acetaminophen], Balsam 115, Benadryl [Diphenhydramine Hcl], Chamomile, Codeine, Lisinopril, Mold, Nsaids (Non- Steroidal Anti-Inflammatory Drug), Penicillins, Seasonal Allergies, Tetracycline, and Vanilla Extract MEDICATIONS TRULICITY 1.5 mg/0.5 mL pen injector INJECT 1.5 MG UNDER THE SKIN ONCE A WEEK acetaminophen (TYLENOL) 500 mg tablet Take 1,000 mg by mouth every 12 hours. atorvastatin (LIPITOR) 40 mg tablet Take 1 tablet by mouth daily at bedtime. For cholesterol. hydrOXYzine HCl (ATARAX) 50 mg tablet Take 1 tablet by mouth every 6 hours as needed for itching/rash. ondansetron orally disintegrating (ZOFRAN ODT) 4 mg disintegrating tablet Take 1 tablet by mouth every 8 hours as needed for nausea/vomiting. tiZANidine HCl (ZANAFLEX) 2 mg capsule Take 1 capsule by mouth twice daily as needed. calcitriol (ROCALTROL) 0.25 mcg capsule Take 0.25 mcg by mouth once daily. ferrous sulfate 325 mg (65 mg iron) tablet Take 325 mg by mouth. glipiZIDE (GLUCOTROL XL) 5 mg 24 hr tablet Take 10 mg by mouth once daily. lidocaine (LIDODERM) 5 % Apply 1 Patch as directed every 24 hours. melatonin 5 mg tablet Take 5 mg by mouth. As needed. oxyCODONE ir (OXYIR) 5 mg capsule Take 5 mg by mouth every 4 hours as needed for pain. sodium bicarbonate 650 mg tablet Take 2 tablets by mouth twice daily. (Patient taking differently: Take 1,300 mg by mouth twice daily. @ dialysis) oxyCODONE-acetaminophen (PERCOCET) 5-325 mg tablet Take 1 tablet by mouth every 6 hours as needed for pain. labetalol (TRANDATE) 100 mg tablet Take 1 tablet by mouth twice daily. omeprazole (PRILOSEC) 20 mg capsule Take 1 capsule by mouth once daily. amitriptyline (ELAVIL) 100 mg tablet Take 1 tablet by mouth daily at bedtime. flash glucose scanning reader (FREESTYLE FESTUS 2 READER) Use to check glucose 3 times daily and continuously. 1 per year. flash glucose sensor (FREESTYLE FESTUS 2 SENSOR) kit Use to check glucose 3 times daily and continuously. Change every 14 days. 6 per 90 day supply. cholecalciferol (VITAMIN D3) 5,000 unit tab Take 5,000 Units by mouth twice daily. aspirin, enteric coated (ADULT LOW DOSE ASPIRIN) 81 mg EC tablet Take 1 tablet by mouth once daily. Pfagwtct-Mz-Qaz-Fe-FA ( VITAMIN) ORAL Tab Take 1 tablet by mouth once daily. cephALEXin (KEFLEX) 250 mg capsule Take 1 capsule by mouth once daily for 7 days. Take after dialysis sodium phosphate,mono-dibasic (FLEET ENEMA RECTAL) by RECTAL route. dextrose (GLUCOSE GEL ORAL) Take by mouth. GUAIFENESIN ORAL Take by mouth. insulin lispro (HUMALOG KWIKPEN INSULIN SUBCUTANEOUS) Inject subcutaneously. magnesium hydroxide (MOM) 400 mg/5 mL suspension Take by mouth once daily as needed. ondansetron (ZOFRAN) 4 mg tablet Take by mouth every 8 hours as needed for nausea/vomiting. sertraline (ZOLOFT) 50 mg tablet Take 1 tablet by mouth once daily. FAMILY HISTORY Problem Relation Age of Onset Diabetes Mother from renal disease Coronary Artery Disease Mother other (Diabetic Retinaopathy) Mother Cancer Mother uterine Stroke Mother Kidney Disease Mother Thyroid Father Thyroid Sister skin cancer Kidney Disease Sister Diabetes Sister Diabetes Sister Coronary Artery Disease Brother Diabetes Brother Coronary Artery Disease Brother Colon Cancer Other none Breast Cancer Other none Social History Tobacco Use Smoking status: Former Packs/day: 2.00 Years: 6.00 Additional pack years: 0.00 Total pack years: 12.00 Types: Cigarettes Quit date: 07/31/1989 Years since quittin.3 Smokeless tobacco: Never Tobacco comments: Quit at age 24 Vaping Use Vaping Use: Never used Substance Use Topics Alcohol use: Not Currently Comment: rare Drug use: No Comment: Tried marijuana once - never used it again. Review of Systems Constitutional: Negative for chills, fatigue and fever. Respiratory: Negative for apnea, cough, choking and chest tightness. Cardiovascular: Negative for chest pain, palpitations and leg swelling. Gastrointestinal: Negative for abdominal pain, nausea and vomiting. Genitourinary: Positive for dysuria, frequency and urgency. Negative for flank pain, hematuria and hesitancy. Musculoskeletal: Negative for arthralgias, back pain and gait problem. Skin: Negative for color change, pallor, rash and wound. Hematological: Negative for adenopathy. Does not bruise/bleed easily. Psychiatric/Behavioral: Negative for agitation and behavioral problems. Objective BP 146/80 Pulse 111 Temp 36.7 C (98 F) (Tympanic) Resp 18 Wt 98.6 kg (217 lb 6.4 oz) LMP 09/20/2014 SpO2 97% BMI 33.06 kg/m Physical Exam Vitals and nursing note reviewed. Constitutional: General: She is not in acute distress. Appearance: Normal appearance. She is normal weight. She is not ill-appearing, toxic-appearing or diaphoretic. HENT: Head: Normocephalic and atraumatic. Right Ear: Ear canal and external ear normal. Left Ear: Ear canal and external ear normal. Nose: Nose normal. No congestion or rhinorrhea. Mouth/Throat: Mouth: Mucous membranes are moist. Pharynx: No oropharyngeal exudate or posterior oropharyngeal erythema. Eyes: General: Right eye: No discharge. Left eye: No discharge. Extraocular Movements: Extraocular movements intact. Conjunctiva/sclera: Conjunctivae normal. Pupils: Pupils are equal, round, and reactive to light. Cardiovascular: Rate and Rhythm: Normal rate and regular rhythm. Pulses: Normal pulses. Heart sounds: Normal heart sounds. No murmur heard. No friction rub. Pulmonary: Effort: Pulmonary effort is normal. No respiratory distress. Breath sounds: Normal breath sounds. No stridor. No wheezing, rhonchi or rales. Chest: Chest wall: No tenderness. Abdominal: General: Abdomen is flat. There is no distension. Palpations: Abdomen is soft. There is no mass. Tenderness: There is no abdominal tenderness. There is no right CVA tenderness, left CVA tenderness, guarding or rebound. Hernia: No hernia is present. Musculoskeletal: General: No swelling, tenderness, deformity or signs of injury. Normal range of motion. Cervical back: Normal range of motion and neck supple. No rigidity. Right lower leg: No edema. Left lower leg: No edema. Lymphadenopathy: Cervical: No cervical adenopathy. Skin: General: Skin is warm and dry. Capillary Refill: Capillary refill takes less than 2 seconds. Coloration: Skin is not jaundiced or pale. Findings: No bruising, erythema, lesion or rash. Neurological: General: No focal deficit present. Mental Status: She is alert and oriented to person, place, and time. Cranial Nerves: No cranial nerve deficit. Sensory: No sensory deficit. Motor: No weakness. Coordination: Coordination normal. Gait: Gait normal. Psychiatric: Mood and Affect: Mood normal. Behavior: Behavior normal. Thought Content: Thought content normal. Judgment: Judgment normal. Assessment and Plan ASSESSMENT/PLAN: 1. Dysuria - ICD9: 788.1, ICD10: R30.0 X 3 days acute - UA positive for brandon esterase, hematuria, and proteinuria - Send urine for culture - Begin treatment with Keflex 250 once a day after dialysis for 7 days - Patient education for prevention given - UA DIP, URINE (POC) - URINE CULTURE - CEPHALEXIN 250 MG CAPSULE Kimberli Saleem APRN.BENEFITS ADMINISTRATOR documented [facility]-18-2023 Miscellaneous Notes* Telephone Encounter - Ignacio Cheatham MD - 11/17/2022 9:36 AM EDT Noted. They are ok. * Telephone Encounter - Claudette Cordero LPN - 11/17/2022 9:17 AM EDT Leda called to let you know pt was d/c from [facility] at pt's request on . Pt has met partial completion of her goals. Recommendations for safety regarding right leg stress fracture given to make sure she does not over it on on her right leg. Pt is able to get out of the house okay. 1)Pt reported to Leda that she stopped her Eliquis and also not taking Gabapentin this does not agree with her. 2) There are medication interactions Leda needed to relay to the office. She sent over a fax medscreening with the following interactions. *Amitriptyline with taking Sertraline *ASA with taking Sertraline *Amitriptyline with taking Labetalol *Omeprazole with taking Ferrous Sulfate *Omeprazole with taking Vitamin. Claudette Cordero LPN documented in this [facility]09-15-2023 Miscellaneous Notes* Telephone Encounter - Georgina Salmon RN - 11/14/2022 11:09 AM EDT Patient notified and states she will bring papers in to PCP office. Georgina Salmon RN * Telephone Encounter - Chloe Carpenter LPN - 11/14/2022 10:09 AM EDT No papers in office. * Telephone Encounter - Georgina Salmon RN - 11/14/2022 9:52 AM EDT Patient calling to ask if PCP office has received her short term disability forms by fax today or yesterday. Please call patient with update. Thank you. documented in this [facility]-11-2023 Miscellaneous Notes* Telephone Encounter - Elenita Macario LPN - 11/10/2022 4:50 PM EDT Phoned patient and reviewed message with her. Patient voiced understanding. * Telephone Encounter - Brooke Manning APRN.CNP - 11/10/2022 4:37 PM EDT Let patient know Dr. Cheatham recommend checking with her paper cutter first to see if Cymbalta can be used. Lyrica increases risk for falls and sedation. Brooke Manning APRN.CNP documented in this encounter[facility]09-11-2023 History of Present illness Narrative* Reagan Riggs MD - 11/10/2022 1:57 PM EDT Reagan Riggs MD Department of Orthopaedics Orthopaedics [address] [place] [id number] Dept: [phone] Dept November 10, 2022 CHIEF COMPLAINT: Established Patient of the Right Knee (Right knee pain - CT scan (09/12/2022), US (10/15/2022) and xray from [facility]) HPI Patient presents with: Right Knee - Established Patient: Right knee pain - CT scan (09/12/2022), US (10/15/2022) and xray from [facility] Patient in today for right knee pain. States it has been going on for some time but got worse 2 weeks ago. Went to [facility] ED and was told to see an orthopedic doctor. Had xray, US, and CT done at that time. This has been going on for a while as she is admitted for severe pain that can Joelle and I thought her symptoms were related to lumbar spine disease. As she continued to have trouble she was later seen in the emergency room and found to have a stress fracture of her tibia. AMB ROOMING INTAKE FLOWSHEET DATA Pain Pain Level: 4 (Occasionally pain gets worse for no reason.) Pain Location: Knee-Right Description: Aching Duration Amount of Time: (Ongoing) Duration Units: Hours Frequency: Continuous Intervention/Comfort measure: Medication, Cold, Heat ASSESSMENT: M84.361A Stress fracture of right tibia, 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primary encounter diagnosis) M79.604 Pain of right lower extremity PLAN: She certainly has a obvious stress fracture. It is healing and sounds like she is getting better but I would continue her protected weightbearing until we have complete healing and improvement in herpain. We will continue to keep her off of work while she is limited with her weightbearing. FOLLOW UP INSTRUCTIONS: New films in 4 to 6 weeks Ms. Margareth Gonzalez was advised as to contrast therapies and/or to take analgesics/anti-inflammatories as needed and all contraindications were reviewed. OBJECTIVE: Ms. Margareth Gonzalez is a pleasant 57 year old in no apparent distress. Gen:LMP 09/20/2014 nl development, non obese, no deformities ENT: Normocephalic, normal hearing, moist mucosa CV: Pulses:DP/PT= 2+ and symmetric, capillary refill < 2 secs, no peripheral edema/varicosities Skin: no rash, bruising or lesions. Good turgor. Psych: cooperative and appropriate, alert and oriented x 3, good mood and affect. Musculoskeletal: There is some mild swelling in the proximal tibia area. She has tenderness over the suspected stress fracture site. She has good range of motion at the knee without pain. IMAGING: IMPRESSION: Progressively healing stress fracture of the proximal tibial diaphysis.. Findings suggesting Achilles tendinosis. Allergist/Md: SHAMAR Transcribe Date/Time: Nov 13 2022 10:44A Dictated by : KHOA WOOD MD This examination was interpreted and the report reviewed and electronically signed by: KHOA WOOD MD on Nov 13 2022 10:46AM EST Results-Findings * * *Final Report* * * DATE OF EXAM: Nov 10 2022 3:23PM [id number] [id number] - XR TIBIA FIBULA 2V AP/LAT RT / PROCEDURE REASON: multiple diagnoses * * * * Physician Interpretation * * * * EXAM(s): XR TIBIA FIBULA 2V AP/LAT RT EXAM DATE/TIME: 11/10/2022 3:23 PM HISTORY: 57 years old Clinical information: Pain of right lower extremity Stress fracture of left tibia, initial encounter Stress fracture of right lower leg. Pain is just distal to knee. TECHNIQUE: Images: XR TIBIA FIBULA 2V AP/LAT RT Comparison: Radiograph right tibia/fibula 10/15/2022. RESULT: Findings: Redemonstrated chronic nondisplaced fracture of the proximal tibial diaphysis with fracture plane extending to the medial cortex. Slight interval increase in callus formation and periosteal reaction consistent with healing. Bony demineralization. Vascular calcifications. Thickening of the Achilles silhouette with dystrophic calcifications 2 cm proximal to the insertion. Supporting Subjective Information Below: Past Medical History: PAST MEDICAL HISTORY Diagnosis Date Acute gastritis without mention of hemorrhage Allergic rhinitis Anaphylaxis Anemia Back pain Benign essential tremor Bipolar I disorder, most recent episode (or current) unspecified sectrum Bone mass Candidiasis, intertrigo Chronic kidney disease Contraceptive management Depression Diabetes ([facility]) Diarrhea DVT, lower extremity ([facility]) 08/2014 Right leg (6) Esophagitis ESRD (end stage renal disease) ([facility]) 07/03/2022 Facial fracture due to fall ([facility]) Fatigue Fibromyalgia Fracture Fracture of shaft of fibula GERD (gastroesophageal reflux disease) HLD (hyperlipidemia) on tricor Hyperlipidemia Hypertension Hypomagnesemia Hypopotassemia IBS (irritable bowel syndrome) Insomnia Intertrigo Knee pain Morbid obesity ([facility]) 03/11/2011 Myalgia Nausea Neck pain Neuropathy Nocturnal leg cramps Non-cardiac chest pain Obesity CASSIE (obstructive sleep apnea) 07/08/2011 Other polyp of sinus Other specified anemias Personal history of unspecified urinary disorder PMH - PAST MEDICAL HISTORY OF left knee surgery x3 Pulmonary nodules Pyelonephritis, acute Restless leg Ruptured appendicitis S/P gastric bypass Snoring Type 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, not stated as uncontrolled(250.50) on oral medications and Lanuts Unspecified asthma(493.90) on inhalers Unspecified essential hypertension on medical management Upper abdominal pain Urinary frequency Vitamin D deficiency Past Surgical History: PAST SURGICAL HISTORY Procedure Laterality Date CHOLECYSTECTOMY 04/02/2011 COLONOSCOPY W/BIOPSY SINGLE/MULTIPLE 12/16/2007 DILATION & CURETTAGE DX&/THER NONOBSTETRIC Dilation & curettage EGD TRANSORAL BIOPSY SINGLE/MULTIPLE 12/16/2007 ESOPHAGOGASTRODUODENOSCOPY TRANSORAL DIAGNOSTIC age 14 EGD LAPAROSCOPIC APPENDECTOMY 05/16/2011 MIDLINE INSERTION/CONSULT 07/29/2012 Lap Paul-en-Y gastric bypass PAST SURGICAL HISTORY OF age 14 left knee surgery, for dislocation PAST SURGICAL HISTORY OF age 5 warts removed PAST SURGICAL HISTORY OF 03/02/2007 laser surgery to both eyes for diabetic retinopathy PAST SURGICAL HISTORY OF 04/26/2008 Bilateral eye surgery- vitrectomy PAST SURGICAL HISTORY OF 06/30/2008 Left eye air fluid exchange PAST SURGICAL HISTORY OF 04/09, 07/07 retinal vitrectomies PAST SURGICAL HISTORY OF Left 07/24/2022 Left forearm AVG with [address] Valenzuela STRESS TEST 200p, 2015 Normal results TUBAL LIGATION HX ablation at the same time Family History: FAMILY HISTORY Problem Relation Age of Onset Diabetes Mother from renal disease Coronary Artery Disease Mother other (Diabetic Retinaopathy) Mother Cancer Mother uterine Stroke Mother Kidney Disease Mother Thyroid Father Thyroid Sister skin cancer Kidney Disease Sister Diabetes Sister Diabetes Sister Coronary Artery Disease Brother Diabetes Brother Coronary Artery Disease Brother Colon Cancer Other none Breast Cancer Other none Social History: Social History Tobacco Use Smoking status: Former Packs/day: 2.00 Years: 6.00 Additional pack years: 0.00 Total pack years: 12.00 Types: Cigarettes Quit date: 07/31/1989 Years since quittin.3 Smokeless tobacco: Never Tobacco comments: Quit at age 24 Vaping Use Vaping Use: Never used Substance Use Topics Alcohol use: Not Currently Comment: rare Drug use: No Comment: Tried marijuana once - never used it again. Medications: Current Outpatient Medications Medication Sig TRULICITY 1.5 mg/0.5 mL pen injector INJECT 1.5 MG UNDER THE SKIN ONCE A WEEK acetaminophen (TYLENOL) 500 mg tablet Take 1,000 mg by mouth every 12 hours. atorvastatin (LIPITOR) 40 mg tablet Take 1 tablet by mouth daily at bedtime. For cholesterol. hydrOXYzine HCl (ATARAX) 50 mg tablet Take 1 tablet by mouth every 6 hours as needed for itching/rash. ondansetron orally disintegrating (ZOFRAN ODT) 4 mg disintegrating tablet Take 1 tablet by mouth every 8 hours as needed for nausea/vomiting. tiZANidine HCl (ZANAFLEX) 2 mg capsule Take 1 capsule by mouth twice daily as needed. calcitriol (ROCALTROL) 0.25 mcg capsule Take 0.25 mcg by mouth once daily. ferrous sulfate 325 mg (65 mg iron) tablet Take 325 mg by mouth. glipiZIDE (GLUCOTROL XL) 5 mg 24 hr tablet Take 10 mg by mouth once daily. melatonin 5 mg tablet Take 5 mg by mouth. As needed. oxyCODONE ir (OXYIR) 5 mg capsule Take 5 mg by mouth every 4 hours as needed for pain. sodium bicarbonate 650 mg tablet Take 2 tablets by mouth twice daily. (Patient taking differently: Take 1,300 mg by mouth twice daily. @ dialysis) oxyCODONE-acetaminophen (PERCOCET) 5-325 mg tablet Take 1 tablet by mouth every 6 hours as needed for pain. labetalol (TRANDATE) 100 mg tablet Take 1 tablet by mouth twice daily. omeprazole (PRILOSEC) 20 mg capsule Take 1 capsule by mouth once daily. amitriptyline (ELAVIL) 100 mg tablet Take 1 tablet by mouth daily at bedtime. flash glucose scanning reader (FREESTYLE FESTUS 2 READER) Use to check glucose 3 times daily and continuously. 1 per year. flash glucose sensor (FREESTYLE FESTUS 2 SENSOR) kit Use to check glucose 3 times daily and continuously. Change every 14 days. 6 per 90 day supply. cholecalciferol (VITAMIN D3) 5,000 unit tab Take 5,000 Units by mouth twice daily. aspirin, enteric coated (ADULT LOW DOSE ASPIRIN) 81 mg EC tablet Take 1 tablet by mouth once daily. Ryygrore-Bd-Gpr-Fe-FA ( VITAMIN) ORAL Tab Take 1 tablet by mouth once daily. diclofenac (VOLTAREN ARTHRITIS PAIN) 1 % topical gel Apply 2 g to affected area four times daily. lidocaine (LIDODERM) 5 % Apply 1 Patch as directed every 24 hours. sertraline (ZOLOFT) 50 mg tablet Take 1 tablet by mouth once daily. No current facility-administered medications for this visit. Allergies: Vicodin [Hydrocodone-Acetaminophen], Balsam 115, Benadryl [Diphenhydramine Hcl], Chamomile, Codeine, Lisinopril, Mold, Nsaids (Non- Steroidal Anti-Inflammatory Drug), Penicillins, Seasonal Allergies, Tetracycline, and Vanilla Extract ROS: General (negative for fatigue, malaise, weight loss/gain) HEENT (negative for headache, earache, recent vision changes, sinus pain, sore throat) Respiratory (no recent shortness of breath, hemoptysis) CV (negative for chest tightness, palpitations) Musculoskeletal (see HPI) Psych (no depression, anxiety) REFERRING PHYSICIAN: Consultation requested by Dr. Cheatham for an opinion regarding leg pain. My final recommendations willbe communicated back to the requesting physician by way of shared Medical record or letter to requesting physician via US mail. Ignacio Cheatham [address] [facility] [id number] Ignacio Cheatham MD [address] [facility] [id number] Reagan Riggs MD documented in this encounter[facility] History of Present illness Narrative* Brooke Manning APRN.BENEFITS ADMINISTRATOR - 11/07/2022 12:28 PM EDT 11/07/2022 Patient presents with: ER F/U: [facility] 10/30 for bilateral hand pain SUBJECTIVE: This is a 57 year old that is here today for Above Complaints. HOSPITAL/ER FOLLOW UP: Reason for visit: bilateral hand pain ( per ER record chest pain and right leg swelling) Which facility: [facility] Date of visit: 10/30/2022 Diagnosis: neuropathy Testing done: US right leg, EKG, blood work, and CXR Treatment given: percocet Patient reports her chest pain was related to her hand pain. Reports has had neuropathy forever in her hands. Since got fistula in left arm in has gotten progressively worse. Reports burning and numbness pain. Has muscle relaxer's that help at times. Denies hand swelling or redness. ER records reviewed. PAST MEDICAL HISTORY Diagnosis Date Acute gastritis without mention of hemorrhage Allergic rhinitis Anaphylaxis Anemia Back pain Benign essential tremor Bipolar I disorder, most recent episode (or current) unspecified sectrum Bone mass Candidiasis, intertrigo Chronic kidney disease Contraceptive management Depression Diabetes ([facility]) Diarrhea DVT, lower extremity ([facility]) 08/2014 Right leg (6) Esophagitis ESRD (end stage renal disease) ([facility]) 07/03/2022 Facial fracture due to fall ([facility]) Fatigue Fibromyalgia Fracture Fracture of shaft of fibula GERD (gastroesophageal reflux disease) HLD (hyperlipidemia) on tricor Hyperlipidemia Hypertension Hypomagnesemia Hypopotassemia IBS (irritable bowel syndrome) Insomnia Intertrigo Knee pain Morbid obesity ([facility]) 03/11/2011 Myalgia Nausea Neck pain Neuropathy Nocturnal leg cramps Non-cardiac chest pain Obesity CASSIE (obstructive sleep apnea) 07/08/2011 Other polyp of sinus Other specified anemias Personal history of unspecified urinary disorder PMH - PAST MEDICAL HISTORY OF left knee surgery x3 Pulmonary nodules Pyelonephritis, acute Restless leg Ruptured appendicitis S/P gastric bypass Snoring Type 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, not stated as uncontrolled(250.50) on oral medications and Lanuts Unspecified asthma(493.90) on inhalers Unspecified essential hypertension on medical management Upper abdominal pain Urinary frequency Vitamin D deficiency ALLERGIES Vicodin [Hydrocodone-Acetaminophen], Balsam 115, Benadryl [Diphenhydramine Hcl], Chamomile, Codeine, Lisinopril, Mold, Nsaids (Non- Steroidal Anti-Inflammatory Drug), Penicillins, Seasonal Allergies, Tetracycline, and Vanilla Extract MEDICATIONS Current Outpatient Medications Medication Sig TRULICITY 1.5 mg/0.5 mL pen injector INJECT 1.5 MG UNDER THE SKIN ONCE A WEEK acetaminophen (TYLENOL) 500 mg tablet Take 1,000 mg by mouth every 12 hours. atorvastatin (LIPITOR) 40 mg tablet Take 1 tablet by mouth daily at bedtime. For cholesterol. hydrOXYzine HCl (ATARAX) 50 mg tablet Take 1 tablet by mouth every 6 hours as needed for itching/rash. ondansetron orally disintegrating (ZOFRAN ODT) 4 mg disintegrating tablet Take 1 tablet by mouth every 8 hours as needed for nausea/vomiting. tiZANidine HCl (ZANAFLEX) 2 mg capsule Take 1 capsule by mouth twice daily as needed. calcitriol (ROCALTROL) 0.25 mcg capsule Take 0.25 mcg by mouth once daily. ferrous sulfate 325 mg (65 mg iron) tablet Take 325 mg by mouth. sodium phosphate,mono-dibasic (FLEET ENEMA RECTAL) by RECTAL route. glipiZIDE (GLUCOTROL XL) 5 mg 24 hr tablet Take 10 mg by mouth once daily. dextrose (GLUCOSE GEL ORAL) Take by mouth. GUAIFENESIN ORAL Take by mouth. insulin lispro (HUMALOG KWIKPEN INSULIN SUBCUTANEOUS) Inject subcutaneously. lidocaine (LIDODERM) 5 % Apply 1 Patch as directed every 24 hours. melatonin 5 mg tablet Take 5 mg by mouth. As needed. magnesium hydroxide (MOM) 400 mg/5 mL suspension Take by mouth once daily as needed. oxyCODONE ir (OXYIR) 5 mg capsule Take 5 mg by mouth every 4 hours as needed for pain. ondansetron (ZOFRAN) 4 mg tablet Take by mouth every 8 hours as needed for nausea/vomiting. sodium bicarbonate 650 mg tablet Take 2 tablets by mouth twice daily. (Patient taking differently: Take 1,300 mg by mouth twice daily. @ dialysis) sevelamer (RENAGEL) 800 mg tablet Take 1 tablet by mouth three times daily. oxyCODONE-acetaminophen (PERCOCET) 5-325 mg tablet Take 1 tablet by mouth every 6 hours as needed for pain. labetalol (TRANDATE) 100 mg tablet Take 1 tablet by mouth twice daily. omeprazole (PRILOSEC) 20 mg capsule Take 1 capsule by mouth once daily. sertraline (ZOLOFT) 50 mg tablet Take 1 tablet by mouth once daily. amitriptyline (ELAVIL) 100 mg tablet Take 1 tablet by mouth daily at bedtime. flash glucose scanning reader (SimpleReachSTYLE FESTUS 2 READER) Use to check glucose 3 times daily and continuously. 1 per year. flash glucose sensor (FREESTYLE FESTUS 2 SENSOR) kit Use to check glucose 3 times daily and continuously. Change every 14 days. 6 per 90 day supply. cholecalciferol (VITAMIN D3) 5,000 unit tab Take 5,000 Units by mouth twice daily. aspirin, enteric coated (ADULT LOW DOSE ASPIRIN) 81 mg EC tablet Take 1 tablet by mouth once daily. Ccbzeafs-Jp-Xjg-Fe-FA ( VITAMIN) ORAL Tab Take 1 tablet by mouth once daily. No current facility-administered medications for this visit. Medications and allergies reviewed by this provider. SOCIAL HISTORY Social History Tobacco Use Smoking status: Former Packs/day: 2.00 Years: 6.00 Additional pack years: 0.00 Total pack years: 12.00 Types: Cigarettes Quit date: 07/31/1989 Years since quittin.2 Smokeless tobacco: Never Tobacco comments: Quit at age 24 Vaping Use Vaping Use: Never used Substance Use Topics Alcohol use: Not Currently Comment: rare Drug use: No Comment: Tried marijuana once - never used it again. REVIEW OF SYSTEMS All other reviewed and negative other than HPI. OBJECTIVE: BP 142/60 Pulse 91 Resp 16 Wt 99.6 kg (219 lb 9.6 oz) LMP 09/20/2014 SpO2 97% BMI 33.39kg/m . Vital signs reviewed by this provider. APPEARANCE Well appearing, alert, in no acute distress, well-hydrated, well nourished. EYES conjunctiva and sclera normal. HANDS: No obvious deformity, erythema or swelling. Normal sensation. 2+ radial pulse with cap refill WNL BP CONTROLLED (<130/80) Never done DILATED RETINAL EXAM due on 05/10/2022 DIABETIC FOOT EXAM due on 06/28/2022 INFLUENZA(1) due on 10/31/2022 HEPATITIS A(1 of 2 - Risk 2-dose series) due on 08/12/2023 SHINGRIX VACCINE(1 of 2) due on 08/12/2023 HBA1C due on 11/11/2022 MAMMOGRAM due on 04/10/2023 LDL CHOLESTEROL due on 08/27/2023 SERUM CREATININE due on 08/27/2023 HEMOGLOBIN/HEMATOCRIT due on 08/27/2023 ANNUAL PCP TEAM CHRONIC DISEASE VISIT due on 11/08/2023 COLORECTAL CANCER SCREENING due on 07/01/2025 PAP TESTING due on 08/15/2025 HPV TESTING due on 08/15/2025 DTAP,TDAP,TD(3 - Td or Tdap) due on 11/25/2026 SPIROMETRY Completed DEPRESSION ASSESSMENT Completed HEPATITIS C SCREENING Completed HIV SCREENING Completed COVID-19 VACCINE Completed PNEUMOCOCCAL Completed ASSESSMENT/PLAN: 1. Neuropathy of hand, unspecified laterality - ICD9: 354.9, ICD10: G56.90 (primary diagnosis) - patient with ESRD so gabapentin is not an option given her kidney a function - she can ask paper cutter about Cymbalta as it looks like this should be avoided in ESRD - can talk with Dr. Cheatham upon his return to see if he would be agreeable to me starting lyrica low dose - patient agrees with plan 2. Encounter for drug screening - ICD9: V72.85, ICD10: Z02.83 - TOX SCREEN ROUT UR - PAIN PANEL, UR QUANT - PAIN PANEL, UR QUANT - SPECIMEN VALIDITY, URINE - TOX SCREEN ROUT UR - PAIN PANEL, UR QUANT Brooke Manning APRN.NOY Prescription instructions reviewed with patient as applicable. Patient advised if symptoms do not improve or if symptoms worsen sooner, to contact their primary care physician. Potential red flag symptoms discussed with the patient. Reviewed appropriate action plan to take if red flag symptoms occur. Patient agreeable to treatment plan. I spent a total of 25 minutes on the date of the service which included preparing to see the patient, [id number] patient care, completing clinical documentation, obtaining and/or reviewing separately obtained history, performing a medically appropriate examination, counseling and educating the pat ient/family/caregiver, and ordering medications, tests, or procedures. documented in this encounter[facility]09-05-2023 Miscellaneous Notes* Telephone Encounter - Sury Corral LPN - 11/04/2022 1:37 PM EDT Halle (MOODY) notified, verbalized understanding. . * Telephone Encounter - Margareth Mirza PA-C - 11/04/2022 1:[address] Cheatham is out this week I haven't seen her in 3 years. His notes do not reflect this type of dramatic change. I would recommend going to ER immediately for evaluation unless she is in end of life care. Thanks, Alfonso Mirza PA-C * Telephone Encounter - Kelly Mcmahan LPN - 11/01/2022 10:12 AM EDT Pt's sister,healthcare POA calling for with concerns of pt's decline in mental capacity. Having increased confusion. This is new recently. Sending family messages that do not make sense. Also noting incontinent issues with bowel and bladder. This is new. She did miss one day of dialysis but go a later day this week. They are wondering what to do? They will be taking pts car keys away. Do not feel she should be driving. Thoughts from pcp's office? They are checking into assist living facilities. documented in this encounterFisher[facility]08-21-2023 History of Present illness Narrative* Ignacio Cheatham MD - 10/20/2022 1:56 PM EDT Patient presents with: Hospital F/U HPI: Patient presents today for office visit for hospital follow up. Hospital/[facility] Discharge follow up. Dialysis on , , Sat. Admitted to 09/10 for severe pain in right leg. Work up included ct of spine and leg and MRI of the spine. Had ddd of spine/spinal stenosis. Admitted from there to [facility] That pain is better. No numbness or weakness with bowel or bladder. [facility] ER 10/15/22 stress fracture of the proximal tibia. Was recommended to have MRI. Xray showed ? Tibial stress fracture, however, ortho cloth seconds sorter was not convinced. Suggested non weight bearing and advised to follow up with ortho for possible mri. She would like to see [facility] ortho instead. This pain is different. Started after doing therapy prior to discharge. [place] something snap in her leg. Xrays done at [facility] were negative. Did have bruising as well. Pain is less severe. In [facility] she was placed on eliquis. They had thought she might have a superficial phlebitis on 09/09.She has had duplexes both of which were negative, one at [facility] and one in ER. She has since stopped it. Some dialysis edema post dialysis. No redness or warmth. Red flags for re-assessment reviewed with patient in detail. Would like refills on atarax and zofran. Having increase anxiety. Has a tic everywhere when anxious. She was on the oxycodone and tramadol. Not using currently. She was using baclofen in the past prn at [facility]. Discussed can try zanaflex for spasms which is safer at renal doses. Getting cgm for her sugars. No chest pain or shortness of breath. No edema. No dizziness. Renal will be checking labs. MEDICATIONS: Current Outpatient Medications Medication Sig acetaminophen (TYLENOL) 500 mg tablet Take 1,000 mg by mouth every 12 hours. calcitriol (ROCALTROL) 0.25 mcg capsule Take 0.25 mcg by mouth once daily. glipiZIDE (GLUCOTROL XL) 5 mg 24 hr tablet Take 10 mg by mouth once daily. melatonin 5 mg tablet Take 5 mg by mouth. As needed. oxyCODONE ir (OXYIR) 5 mg capsule Take 5 mg by mouth every 4 hours as needed for pain. sodium bicarbonate 650 mg tablet Take 2 tablets by mouth twice daily. (Patient taking differently: Take 1,300 mg by mouth twice daily. @ dialysis) hydrOXYzine HCl (ATARAX) 50 mg tablet Take 1 tablet by mouth every 6 hours as needed for itching/rash. labetalol (TRANDATE) 100 mg tablet Take 1 tablet by mouth twice daily. omeprazole (PRILOSEC) 20 mg capsule Take 1 capsule by mouth once daily. sertraline (ZOLOFT) 50 mg tablet Take 1 tablet by mouth once daily. amitriptyline (ELAVIL) 100 mg tablet Take 1 tablet by mouth daily at bedtime. atorvastatin (LIPITOR) 40 mg tablet Take 1 tablet by mouth daily at bedtime. For cholesterol. ondansetron orally disintegrating (ZOFRAN ODT) 4 mg disintegrating tablet Take 1 tablet by mouth every 8 hours as needed for nausea/vomiting. TRULICITY 1.5 mg/0.5 mL pen injector INJECT 1.5 MG UNDER THE SKIN ONCE A WEEK cholecalciferol (VITAMIN D3) 5,000 unit tab Take 5,000 Units by mouth twice daily. aspirin, enteric coated (ADULT LOW DOSE ASPIRIN) 81 mg EC tablet Take 1 tablet by mouth once daily. Pzhpdshw-Os-Ufj-Fe-FA ( VITAMIN) ORAL Tab Take 1 tablet by mouth once daily. acetaminophen (TYLENOL) 650 mg suppository 650 mg by RECTAL route every 4 hours as needed. acetaminophen (TYLENOL) 325 mg tablet Take 650 mg by mouth every 6 hours as needed. aluminum-magnesium hydroxide-simethicone (MAALOX,MYLANTA,MAG-AL PLUS) 200-200-20 mg/5 mL suspensionTake by mouth every 6 hours as needed. bisacodyl (DULCOLAX) 10 mg supp 10 mg by RECTAL route once daily as needed for constipation. ferrous sulfate 325 mg (65 mg iron) tablet Take 325 mg by mouth. sodium phosphate,mono-dibasic (FLEET ENEMA RECTAL) by RECTAL route. dextrose (GLUCOSE GEL ORAL) Take by mouth. GUAIFENESIN ORAL Take by mouth. insulin lispro (HUMALOG KWIKPEN INSULIN SUBCUTANEOUS) Inject subcutaneously. lidocaine (LIDODERM) 5 % Apply 1 Patch as directed every 24 hours. magnesium hydroxide (MOM) 400 mg/5 mL suspension Take by mouth once daily as needed. ondansetron (ZOFRAN) 4 mg tablet Take by mouth every 8 hours as needed for nausea/vomiting. sevelamer (RENAGEL) 800 mg tablet Take 1 tablet by mouth three times daily. oxyCODONE-acetaminophen (PERCOCET) 5-325 mg tablet Take 1 tablet by mouth every 6 hours as needed for pain. flash glucose scanning reader (FREESTYLE FESTUS 2 READER) Use to check glucose 3 times daily and continuously. 1 per year. flash glucose sensor (FREESTYLE FESTUS 2 SENSOR) kit Use to check glucose 3 times daily and continuously. Change every 14 days. 6 per 90 day supply. No current facility-administered medications for this visit. ALLERGIES: ALLERGIES Allergen Reactions Vicodin [Hydrocodon* Vomiting Balsam 115 Benadryl [Diphenhyd* Rash, Itching Chamomile Asthma attack Codeine Vomiting, Other: See Comments Lisinopril Contraindication-Medical Surgical Acute renal failure Mold Nsaids (Non-Steroid* Other: See Comments Unable to take nsaids after having gastric bypass. Penicillins Anaphylaxis Seasonal Allergies Other: See Comments Nose runs, sneezing... Tetracycline Rash Vanilla Extract PAST MEDICAL HISTORY Diagnosis Date Acute gastritis without mention of hemorrhage Allergic rhinitis Anaphylaxis Anemia Back pain Benign essential tremor Bipolar I disorder, most recent episode (or current) unspecified sectrum Bone mass Candidiasis, intertrigo Chronic kidney disease Contraceptive management Depression Diabetes ([facility]) Diarrhea DVT, lower extremity ([facility]) 08/2014 Right leg (6) Esophagitis ESRD (end stage renal disease) ([facility]) 07/03/2022 Facial fracture due to fall ([facility]) Fatigue Fibromyalgia Fracture Fracture of shaft of fibula GERD (gastroesophageal reflux disease) HLD (hyperlipidemia) on tricor Hyperlipidemia Hypertension Hypomagnesemia Hypopotassemia IBS (irritable bowel syndrome) Insomnia Intertrigo Knee pain Morbid obesity ([facility]) 03/11/2011 Myalgia Nausea Neck pain Neuropathy Nocturnal leg cramps Non-cardiac chest pain Obesity CASSIE (obstructive sleep apnea) 07/08/2011 Other polyp of sinus Other specified anemias Personal history of unspecified urinary disorder PMH - PAST MEDICAL HISTORY OF left knee surgery x3 Pulmonary nodules Pyelonephritis, acute Restless leg Ruptured appendicitis S/P gastric bypass Snoring Type 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, not stated as uncontrolled(250.50) on oral medications and Lanuts Unspecified asthma(493.90) on inhalers Unspecified essential hypertension on medical management Upper abdominal pain Urinary frequency Vitamin D deficiency PAST SURGICAL HISTORY Procedure Laterality Date CHOLECYSTECTOMY 04/02/2011 COLONOSCOPY W/BIOPSY SINGLE/MULTIPLE 12/16/2007 DILATION & CURETTAGE DX&/THER NONOBSTETRIC Dilation & curettage EGD TRANSORAL BIOPSY SINGLE/MULTIPLE 12/16/2007 ESOPHAGOGASTRODUODENOSCOPY TRANSORAL DIAGNOSTIC age 14 EGD LAPAROSCOPIC APPENDECTOMY 05/16/2011 MIDLINE INSERTION/CONSULT 07/29/2012 Lap Paul-en-Y gastric bypass PAST SURGICAL HISTORY OF age 14 left knee surgery, for dislocation PAST SURGICAL HISTORY OF age 5 warts removed PAST SURGICAL HISTORY OF 03/02/2007 laser surgery to both eyes for diabetic retinopathy PAST SURGICAL HISTORY OF 04/26/2008 Bilateral eye surgery- vitrectomy PAST SURGICAL HISTORY OF 06/30/2008 Left eye air fluid exchange PAST SURGICAL HISTORY OF 04/09, 07/07 retinal vitrectomies PAST SURGICAL HISTORY OF Left 07/24/2022 Left forearm AVG with [address] Valenzuela STRESS TEST 200p, 2015 Normal results TUBAL LIGATION HX ablation at the same time FAMILY HISTORY Problem Relation Age of Onset Diabetes Mother from renal disease Coronary Artery Disease Mother other (Diabetic Retinaopathy) Mother Cancer Mother uterine Stroke Mother Kidney Disease Mother Thyroid Father Thyroid Sister skin cancer Kidney Disease Sister Diabetes Sister Diabetes Sister Coronary Artery Disease Brother Diabetes Brother Coronary Artery Disease Brother Colon Cancer Other none Breast Cancer Other none Social History Tobacco Use Smoking status: Former Packs/day: 2.00 Years: 6.00 Additional pack years: 0.00 Total pack years: 12.00 Types: Cigarettes Quit date: 07/31/1989 Years since quittin.2 Smokeless tobacco: Never Tobacco comments: Quit at age 24 Vaping Use Vaping Use: Never used Substance Use Topics Alcohol use: Not Currently Comment: rare Drug use: No Comment: Tried marijuana once - never used it again. Reviewed current medications, allergies, past medical history, surgical history, family history andsocial history today. REVIEW OF SYSTEMS Request [employer] alert for her home. All other reviewed and negative other than HPI. VITALS: BP 152/72 Pulse 93 Wt 101.2 kg (223 lb) LMP 09/20/2014 SpO2 98% BMI 33.91 kg/m Last 4 Encounter Wt Readings: Date: Wt: 09/23/2022 0 kg () 09/09/2022 101.6 kg (224 lb) 08/21/2022 101.6 kg (224 lb) 08/11/2022 106.6 kg (235 lb) PHYSICAL EXAMINATION: General appearance: Well appearing, alert, in no acute distress, well-hydrated, well nourished. Skin: Skin color, texture, turgor normal, no suspicious rashes or lesions Head: Normocephalic, no masses, lesions, tenderness or abnormalities Lungs: Lungs clear to auscultation. No wheezing, rhonchi, rales Heart: RRR without murmur, gallop, or rubs. No ectopy Abdomen: Normal abdominal exam, Abdomen soft, non-tender. Bowel sounds normal. No masses, organomegaly Extremities: trace edema. Resolving bruise on right leg. ASSESSMENT/PLAN: 1. Pain of right lower extremity - ICD9: 729.5, ICD10: M79.604 (primary diagnosis) - see ortho soon. Discussed risks and benefits of new medication with the patient. Advised them to call if any side effects or questions. - TIZANIDINE 2 MG CAPSULE - CONSULT TO ORTHOPAEDICS - DME SUPPLY OR ACCESSORY, NOS 2. Mixed hyperlipidemia - ICD9: 272.2, ICD10: E78.2 - ATORVASTATIN 40 MG TABLET 3. Abnormal x-ray - ICD9: 793.99, ICD10: R93.89 - DME SUPPLY OR ACCESSORY, NOS 4. Lumbar radiculopathy - ICD9: 724.4, ICD10: M54.16 - DME SUPPLY OR ACCESSORY, NOS 5. Primary hypertension - ICD9: 401.9, ICD10: I10 - has been good. Followed by nephro. 6. Type 2 diabetes, controlled, with neuropathy (HCC) - ICD9: 250.60, 357.2, ICD10: E11.40 - stable. 7. End stage renal disease (HCC) - ICD9: 585.6, ICD10: N18.6 - DME SUPPLY OR ACCESSORY, NOS 8. Anxiety - ICD9: 300.00, ICD10: F41.9 - refilled meds. - HYDROXYZINE HCL 50 MG TABLET - ONDANSETRON 4 MG DISINTEGRATING TABLET Ignacio Cheatham MD documented in this encounterFisher-[facility]08-17-2023 Miscellaneous Notes* Telephone Encounter - Chloe Carpenter LPN - 10/16/2022 10:24 AM EDT Talked to Leda. Approved visits. She is asking to have med list sent to them after her visit on Thursday. MRI can't be ordered without visit. Patient may need to see ortho to have this completed. * Telephone Encounter - Ignacio Cheatham MD - 10/16/2022 9:42 AM EDT They know more than we do. The f has updated med list. We have not seen her yet. She needs seen for us to order things like that. Ok for orders for them to follow. * Telephone Encounter - Chloe Carpenter LPN - 10/16/2022 9:35 AM EDT Her most recent med list would be [facility] correct? We have not seen her. * Telephone Encounter - Claudette Cordero LPN - 10/16/2022 8:36 AM EDT Leda with [facility]. PT called to let you know she did the start of for yesterday 10-15-22 for PT. They will see pt 2 times a wee for 4 weeks and then 1 time a week for 3 weeks. Leda isrequesting : 1) verbal order to have OT come for ADLs and IDLs . She feels pt would benefit from this with bathing, dressing tips for safety and strengthening. 2)requesting a copy of pt's med list be faxed to them for clarification FAX:[phone]. [facility] she is not taking Humalog since she has been home. She is taking Trulicity and Glipizide only for her DM. Dosage needed for how much Glipizide pt should be taking. Pt has not been checking her blood sugar and will start doing this again. No complaints of having high or low blood sugars 3)Pt had stepped down wrong when she was at [facility] during therapy. An x-ray was done not showing and fractures. Last night pt went to [facility] ER right leg pain and pt has a stress fracture ofthe right knee .Pt was complaining of pain with right ankle and foot and Leda reports pt had swelling and bruising with the ankle and foot when she had seen her earlier. Pt is on a blood thinner. Pt related to Leda, ER wants pt to have an MRI of right knee to make sure nothing else is going on. Pt would like this to be done at [facility] and ordered by Dr. Cheatham.(Spoke with pt to see where she wanted this done). Please order for pt. Please advise Leda. Claudette Cordero LPN documented in this encounterFisher-[facility]itus [facility] Center08-10-2023 Miscellaneous Notes* Telephone Encounter - Sury Corral LPN - 10/09/2022 12:36 PM EDT Intake nurse Audra notified. * Telephone Encounter - Ignacio Cheatham MD - 10/09/2022 12:25 PM EDT Ok to do * Telephone Encounter - Georgina Salmon RN - 10/09/2022 11:32 AM EDT Karly Graff calling from [facility] and states they received a PT referral for patient from [facility]. Patient discharged from [facility] on 10/08. Asking if may have verbal order from provider for Physical Therapy? Please call Intake Nurse Audra with reply at [phone]. Thank you. documented in this encounterFisher-[facility]08-01-2023 Miscellaneous Notes* Telephone Encounter - Karly Wells RN - 09/30/2022 10:53 AM EDT Left detailed VM for DINO Kelly at [facility]. I advised her that I called the patient last Sep. With no return call back. Patient needed to see a dentist and get a knee replacement before moving forward with he testing for kidney transplant evaluation. Direct desk number provided for return call. * Telephone Encounter - Jenni León - 09/29/2022 4:36 PM EDT Dialysis records received and scanned into [employer]. Call patient's social sciences chair, as she just started dialysis, and advise regarding kidney transplant evaluation status, phone number is [phone]. documented in this [facility] Miscellaneous Notes* Telephone Encounter - Makenna Mullins - 09/18/2022 10:58 AM EDT Cancelled injections and labs in conjunction with injection. Makenna * Telephone Encounter - Veronica Atkinson LPN - 09/18/2022 10:06 AM EDT Preivous phone notes show pt will be starting dialysis at [facility], if so, pt will not need to continue her Retacrit injections here. TC to [facility] to confirm this. She is not cleared to start after she is cleared by Vascular. Diamond Grinder at [facility] states pt is at [facility], she would receive dialysis there at [facility]. Spoke to Lion in that dialysis unit, he says pt has a f/u with vascular on 09/23, then if cleared will start dialysis.She saw Dr Spencer once 12/18/21. Dialysis will cover her with injections. Cancel her injections. documented in this encounter[facility]07-18-2023 Miscellaneous Notes* Telephone Encounter - Kaylin Carranza RN - 09/16/2022 10:45 AM EDT CKD SPECIALIZED COORDINATION DISCHARGE Patient has been identified by name and date of : Yes Patient discharged from Specialty Care Coordination: YES Goals met Health outcomes are maximized, evidence by patient-centered clinical outcomes Goals not met Kidney function deteriorated Patient knowledgeable and confident in contacting Health Care Providers for questions or concerns: YES Reinforced with patient and/or caregiver that Specialty Care Coordination may be reinitiated if a change in status warrants navigation readmission: Not applicable Discussed with: Kidney Medicine Providers What was the Focus/Challenges addressed in Care Coordination? Education on Chronic Disease Management Disposition: Involved in community agencies: [facility]/[place] [phone] & [facility]/[place] Care Team Tab - End: YES Kaylin Carranza RN * Telephone Encounter - Kaylin Carranza RN - 09/16/2022 10:44 AM EDT ----- Message from Sonia Tavares sent at 09/16/2022 10:17 AM EDT ----- Regarding: RE: Pt Update Hi All, [facility] actually has [facility] onsite and their medical records custodian is the same at [facility]. I spoke with GRACE Seymour in the dialysis den and he said they will 'transfer' her to [facility] when she is ready to discharge from [facility]. We will also remove her from our list. Thanks, Sonia ----- Message ----- From: Kaylin Carranza RN Sent: 09/16/2022 10:15 AM EDT To: Efe Villavicencio; Sonia Tavares; Goldy Hunter DO; # Subject: RE: Pt Update Hi all I did an update on Care Everywhere & saw that pt was discharged from [facility] in [place] ([phone]). Her diagnosis was debility - inabilityto care for self. I tried to call [facility] first to see what was going on but my call went straight to voice mail. It didn't even ring. So then I called the facility. I spoke with nurse, Dora who verified that pt is there. She has not yet started dialysis because her AVF is not patent. They are working with their own Security Consultant & plan to start her on dialysis on 09/23/22 there. Dora said the plan is for in-house dialysis. With this being said, I stated, so she won't be needing to keep her chair time that we set up for her at [facility]? Dora confirmed this is not needed. So, go ahead & cancel herso someone else who needs it can get it. I will be removing [facility] from my panel since she is following with another Security Consultant & her needs are being met at this time. Kaylin Carranza RN ----- Message ----- From: Sonia Tavares Sent: 09/12/2022 1:35 PM EDT To: Efe Villavicencio; Kaylin Carranza RN; Goldy Hunter DO; # Subject: RE: Pt Update Me zoila, Efe spoke with Arnold today and [facility] told her she is in hospital and going to a alf. Sheis not sure where, but doesn't know if she will make her vascular appointment on 09/23. We also haveno idea if she started dialysis in the hospital. We think it's [facility]. Not surewhat you would want us to do about this. If she is truly going to a [place] they should communicate w/ [facility]. Sonia Leyva ----- Message ----- From: Efe Villavicencio Sent: 09/11/2022 10:56 AM EDT To: Sonia Tavares; Kaylin Carranza RN; # Subject: Pt Update Me, Just wanted to check before contacting pt, was she admitted to [facility]? Efe Leyva documented in this encounterFisher[facility]07-18-2023 Miscellaneous Notes* Telephone Encounter - Efe Villavicencio - 09/16/2022 10:41 AM EDT DIALYSIS PLACEMENT NOTE Planned for pt to start dialysis at [facility] but pt was admitted to [facility] before she could start. Pt will start dialysis onsite at care facility and transfer to [facility] when ready for discharge. Facility: [facility] ([address], [place] [address]) Security Consultant: Dr. Hill Signature: Efe Villavicencio Patient Name: Margareth Gonzalez Date: September 16, 2022 Time: 10:41 AM documented in this encounterFisher[facility]07-14-2023 Consult note Author Karla Terry [facility] September 12, 2022 12:31pm Note Date/Time September 12, 2022 12:3 1pm [facility] Medical Records Department [address] [place] [address] Counseling Note - Pharmacy 09/12/22 1231 MR#: [id number] Acct: [id number] Name: Margareth GONZALEZ Rep #:[id number] : 1965 57 From: Karla Terry PCP: Dr. Ignacio Cheatham MD Status:ADM I NO Y [id number] [place] Med Reconciliation Pharmacy Service has performed discharge medication reconciliation for this patient upon transfer to [facility]. The patient's discharge medication list was reviewed for discrepancies and discrepancies were resolved. Medications at Discharge Home Medications cholecalciferol (vitamin D3) 25 mcg (1,000 unit) capsule (Vitamin D3) 5,000 unitPO DAILY 10/03/13 omeprazole 20 mg capsule,delayed release 20 mg PO DAILY 08/23/14 glipizide 5 mg tablet 10 mg PO DAILY 04/28/15 labetalol 200 mg tablet 200 mg PO BID 04/28/15 aspirin 81 mg tablet,delayed release (Aspir-Low) 81 mg PO DAILY 05/27/16 melatonin 5 mg capsule 5 mg PO QHS 05/27/16 ferrous sulfate 325 mg (65 mg iron) tablet (Iron (ferrous sulfate)) 325 mg PO DAILY 11/25/16 Elavil 1 tab PO DAILY 11/12/17 amitriptyline 100 mg tablet 100 mg PO QHS sleep 09/10/22 apixaban 2.5 mg tablet (Eliquis) 2.5 mg PO BID 09/10/22 atorvastatin 40 mg tablet 40 mg PO QHS hyperlipidemia 09/10/22 calcitriol 0.25 mcg capsule 0.25 mcg PO BID 09/10/22 dulaglutide 1.5 mg/0.5 mL subcutaneous pen injector (Trulicity) mg subcut .everysunday diabetes 09/10/22 hydroxyzine HCl 50 mg tablet 50 mg PO Q6H PRN itching 09/10/22 sertraline 50 mg tablet 50 mg PO QHS bipolar 09/10/22 sevelamer HCl 800 mg tablet 1,600 mg PO QHS 09/10/22 sodium bicarbonate 650 mg tablet 650 mg PO QHS 09/10/22 Remove Patch 1 patch topical DAILY@2200 ##0 09/11/22 acetaminophen 325 mg tablet 650 mg (2 x 325 mg) PO Q4H PRN PRN Fever, pain 1- 12/09 #0 tabs 09/11/22 insulin lispro 100 unit/mL subcutaneous pen (Humalog KwikPen (U-100) Insulin) See Protocol subcut ACHS #0 mL 09/11/22 lidocaine 5 % topical patch 2 patch topical DAILY #0 ea 09/11/22 methylprednisolone 4 mg tablets in a dose pack 4 mg PO 0800,1200,1700 #0 tabs 09/11/22 oxycodone 5 mg tablet 5 mg PO Q4H PRN PRN Pain Score 4-10 3 days #12 tabs 09/11/22 09/12/22 1231 <Electronically signed by Karla Terry > Date _ Karla Terry Cosigner Signature (if applicable): Date CC: ~ Signed [facility] Work Phone: 1(176) 850-937307-14-2023 Discharge summary Author Sylvester Ortiz [facility] September 12, 2022 11:46am Note Date/Time September 12, 2022 11:4 6am [facility] Medical Records Department [address] [place] [address] Discharge Summary 09/12/22 1143 MR#: [id number] Acct: [id number] Name: Margareth GONZALEZ Rep #:[id number] : 1965 57 From: Sylvester Ortiz DO PCP: Dr. Igancio Cheatham MD Status:ADM I NO Location: [facility] [id number] Providers Date of Admission: 09/10/22 Primary Care Physician: Dr. Ignacio Cheatham MD Reason For Visit: RLE INTRACTABLE PAIN Diagnosis Discharge Diagnosis (1) Right leg pain: Status: Acute Code(s): M79.604 - Pain in right leg Plan: Acute Intractable RLE Pain with radiculopathy: Plain film of the right hip in the ED and recent right knee plain film not marked appearing although notable chronic disease, pending Studies: * CT lumbar spine: Since prior study, 8 years ago there there is interval greater degenerative change particularly at the level of L2-L3 with areas visualized interval deep Schmorl''s node or disc disease especially involving the inferior endplate with moderate neural foramina narrowing mild to moderate central stenosis at the level of L2-3 L4-L5. When appropriate. Consider follow-up MRI. No visualized acute loss of height or alignment. Overdistended bladder recommend voiding and/or catheterization. Recommend pre and post void imaging if appropriate. * MRI: Moderate central canal stenosis at L3-L4, mild stenosis of right intervertebral neural foramen and small posterior bulging annulus. Moderate L2-3 intervertebral osteochondritis posterior bulging annulus and mild central canal stenosis. * Through [facility]: duplex on 09/09 showed SVT on left small saphenous vein near the saphenofemoral junction * CT leg showed dense vascular calcification of arteries. No abscess. SQ edema inferior medical aspect of the lower leg. Pain control. Medrol dose pack. No definitive etiology of her pain is identified. Will check CT of leg w/o contrast to see if there is an occult fracture. No clinical evidence of cellulitis, no treatment at this time. Plan Chronic conditions: * Recent history infected AVF: Patient with recent hospitalization secondary to infected AV graft with surgical intervention and antibiotic therapy treatment, encourage continued outpatient follow-up as previously arranged. * Chronic Kidney Disease Stage IV with pending HD initiation: Awaiting admission BUN/creatinine, baseline renal function most recently in the 4 range but has vacillated, will plan repeat in a.m. if able, follows with [facility] nephrology. * Chronic COPD/asthma: From current list not on any chronic inhalers, will have PRN albuterol, HOB, IS parameters. * Hypertension: Continue home regimen including labetalol, PRN hydralazine. * Hyperlipidemia: Not on regimen, defer to outpatient. * Anxiety and depression/bipolar disorder: Currently only regimen noted per her list is Elavil, will continue although this certainly could be from her chronic neuropathy associate with diabetes as well. * Chronic normocytic anemia/AOCD: Still awaiting admission CBC as noted, baseline hemoglobin noted most recently 07/29/2021 9.8, will continue to trend as able, continue iron supplementation. * Diabetes mellitus type II with chronic neuropathy: Hold oral home regimen, continue home insulin regimen, ADA diet, accu checks w/ ISS. * GERD: We will continue patient home PPI. DVT prophylaxis: Heparin. CODE status: Full code. Disposition: to [facility] Medications at Discharge Home Medications cholecalciferol (vitamin D3) 25 mcg (1,000 unit) capsule (Vitamin D3) 5,000 unitPO DAILY 10/03/13 omeprazole 20 mg capsule,delayed release 20 mg PO DAILY 08/23/14 glipizide 5 mg tablet 10 mg PO DAILY 04/28/15 labetalol 200 mg tablet 200 mg PO BID 04/28/15 aspirin 81 mg tablet,delayed release (Aspir-Low) 81 mg PO DAILY 05/27/16 melatonin 5 mg capsule 5 mg PO QHS 05/27/16 ferrous sulfate 325 mg (65 mg iron) tablet (Iron (ferrous sulfate)) 325 mg PO DAILY 11/25/16 Elavil 1 tab PO DAILY 11/12/17 amitriptyline 100 mg tablet 100 mg PO QHS sleep 09/10/22 apixaban 2.5 mg tablet (Eliquis) 2.5 mg PO BID 09/10/22 atorvastatin 40 mg tablet 40 mg PO QHS hyperlipidemia 09/10/22 calcitriol 0.25 mcg capsule 0.25 mcg PO BID 09/10/22 dulaglutide 1.5 mg/0.5 mL subcutaneous pen injector (Trulicity) mg subcut .everysunday diabetes 09/10/22 hydroxyzine HCl 50 mg tablet 50 mg PO Q6H PRN itching 09/10/22 sertraline 50 mg tablet 50 mg PO QHS bipolar 09/10/22 sevelamer HCl 800 mg tablet 1,600 mg PO QHS 09/10/22 sodium bicarbonate 650 mg tablet 650 mg PO QHS 09/10/22 Remove Patch 1 patch topical DAILY@2200 ##0 09/11/22 acetaminophen 325 mg tablet 650 mg (2 x 325 mg) PO Q4H PRN PRN Fever, pain 1- 12/09 #0 tabs 09/11/22 insulin lispro 100 unit/mL subcutaneous pen (Humalog KwikPen (U-100) Insulin) See Protocol subcut ACHS #0 mL 09/11/22 lidocaine 5 % topical patch 2 patch topical DAILY #0 ea 09/11/22 methylprednisolone 4 mg tablets in a dose pack 4 mg PO 0800,1200,1700 #0 tabs 09/11/22 oxycodone 5 mg tablet 5 mg PO Q4H PRN PRN Pain Score 4-10 3 days #12 tabs 09/11/22 Hospital Course Operations None Procedures None Summary of Care Provided Minutes Spent on Discharge: 32 Weight / BMI Weight Weight: 105.687 kg Body Mass Index (BMI) 35.4 ABG / Lab / Microbiology Data 09/10/22 06:00 09/10/22 06:00 Laboratory: Laboratory Results - last 24 hr 09/11/22 11:26: POC Glucose 175 H 09/11/22 16:22: POC Glucose 146 H 09/11/22 21:38: POC Glucose 196 H 09/12/22 07:36: POC Glucose 188 H Radiography Diagnostic Testing: Radiology Impression Lower Extremity CT 09/12/22 08:58 IMPRESSION: Dense vascular calcification of the visualized arteries in the right lower extremity. No evidence of abscess formation. Subcutaneous edema involving the inferior medial aspect of the lower leg. Electronically Signed: Piter Dietrich MD at 9:54 EDT , Meaningful Use Info Meaningful Use Diagnoses (Choose all that apply): None applicable Discharge Plan Admission Admit Date/Time: 09/10/22 02:13 Primary Reason for Your Visit: right leg pain. debility Attending Provider: Sylvester Ortiz Primary Care Provider: Ignacio Cheatham Consulting Providers: Lizzy Bragg Instructions Additional Instructions / Restrictions: [facility] Discharge Orders/Prescriptions Prescriptions: New acetaminophen 325 mg Tablet 650 mg PO Q4H PRN PRN (Reason: Fever, pain 1-12/09) Qty: 0 0RF insulin lispro [Humalog KwikPen Insulin] 100 unit/mL Insulin Pen See Protocol subcut ACHS Qty: 0 0RF Protocol: 3. Sliding Scale Insulin Med Dosing Condition: 150-189 mg/dl = 1 unit Condition: 190-229 mg/dl = 2 units Condition: 230-269 mg/dl = 3 units Condition: 270-309 mg/dl = 4 units Condition: 310-349 mg/dl = 5 units Condition: 350-399 mg/dl = 6 units Condition: 400-449 mg/dl = 7 units Condition: Greater than 449 call physician Protocol Text: - Use for Total Daily Dose of Insulin 37-55 units - Obsese, infected, or steroid patients MEDIUM DOSING ALGORITHIM lidocaine 5 % Adhesive Patch,Medicated 2 patch topical DAILY Qty: 0 0RF Protocol: *Topical Application Instructions APPLICATION INSTRUCTIONS: R hip, R knee methylprednisolone 4 mg Tablets,Dose Pack 4 mg PO 0800,1200,1700 Qty: 0 0RF oxycodone 5 mg Tablet 5 mg PO Q4H PRN PRN (Reason: Pain Score 4-10) 3 Days Qty: 12 0RF Remove Patch 1 patch topical DAILY@2200 Qty: 0 0RF Continued cholecalciferol (vitamin D3) [Vitamin D3] 1,000 UNIT capsule 5,000 unit PO DAILY omeprazole 20 MG capsule 20 mg PO DAILY labetalol 200 MG tablet 200 mg PO BID glipizide 5 MG tablet 10 mg PO DAILY aspirin [Aspir-Low] 81 MG tablet,delayed release (DR/EC) 81 mg PO DAILY melatonin 5 MG capsule 5 mg PO QHS ferrous sulfate [Iron (ferrous sulfate)] 325 MG tablet 325 mg PO DAILY Elavil 1 tab PO DAILY atorvastatin 40 mg tablet 40 mg PO QHS calcitriol 0.25 mcg capsule 0.25 mcg PO BID Trulicity 1.5 mg/0.5 mL pen injector SUBCUT .every thursday sevelamer HCl 800 mg tablet 1,600 mg PO QHS sodium bicarbonate 650 mg tablet 650 mg PO QHS Eliquis 2.5 mg tablet 2.5 mg PO BID sertraline 50 mg tablet 50 mg PO QHS hydroxyzine HCl 50 mg tablet 50 mg PO Q6H PRN (Reason: itching) amitriptyline 100 mg tablet 100 mg PO QHS Discontinued Vitamin 1 EACH tablet 1 ea PO DAILY Oxaydo 5 mg tablet, oral only 5 mg PO Q8H PRN (Reason: pain) hydrocodone-acetaminophen 5-325 mg tablet 1 tab PO Q6H PRN (Reason: pain) 3 Days Qty: 12 0RF Referrals / Follow Up: Ignacio Cheatham MD [Primary Care Provider] - Within 2 Weeks Disposition Disposition (needs filled in before D/C Order can be placed): [facility] Facility Charges/Coding Visit Charges Inpatient E&M: 47885 Disch Hosp >30min 09/12/22 1146 <Electronically signed by Sylvester Ortiz DO> Cosigner Signature (if applicable): CC: Dr. Sylvester Ortiz DO; Dr. Ignacio Cheatham MD~ Signed [facility] Work Phone: 1(763) 573-240907-14-2023 Progress note Author Sylvester Ortiz [facility] September 12, 2022 9:15am Note Date/Time September 12, 2022 7:53 am [facility] Medical Records Department [address] [place] [address] Progress Note - Hospitalist 09/12/22 0752 MR#: [id number] Acct: [id number] Name: Margareth GONZALEZ ARNOLD Rep #:[id number] : 1965 57 From: Sylvester Ortiz DO PCP: Dr. Ignacio Cheatham MD Status:ADM I NO Location: [place] [id number] Reason for Visit Reason for Visit: Diagnoses Obesity, unspecified (09/10/22) Pain in right leg (09/10/22) Subjective Subjective Complains of pain in medial knee and goes down to her foot when she stands. She cannot walk. Objective Data Objective Data Vital Signs: Vital Signs Temp Pulse Resp BP Pulse Ox O2 Del Method 36.7 C 90 16 165/64 H 97 Room Air 09/12/22 07:19 09/12/22 07:19 09/12/22 07:19 09/12/22 07:19 09/12/22 07:19 09/12/22 07:19 Oxygen Delivery Method Room Air Weight: 105.687 kg Body Mass Index (BMI) 35.4 Intake & Output: Intake and Output for Last 24 Hours 09/10/22 09/11/22 09/12/22 23:59 23:59 23:59 Intake Total 240 / 240 240 / 240 Output Total 850 / 1250 1550 / 2650 1400 / 1400 Balance -610 / -1010 -1310 / -2410 -1400 / -1400 Lab / Micro Data 09/10/22 06:00 09/10/22 06:00 Labs: Laboratory Results - last 24 hr 09/11/22 07:51: POC Glucose 190 H 09/11/22 11:26: POC Glucose 175 H 09/11/22 16:22: POC Glucose 146 H 09/11/22 21:38: POC Glucose 196 H Physical Exam Const alert and no apparent distress Extremity normal to inspection Extremity Narrative: pain with palpation of right medial knee, but no obvious lesion. pain with pressure applied to her right heel, but she appeared in no distress. Assessment & Plan Assessment/Plan (1) Right leg pain: PLAN: Acute Intractable RLE Pain with radiculopathy: Plain film of the right hip in the ED and recent right knee plain film not marked appearing although notable chronic disease, pending Studies: * CT lumbar spine: Since prior study, 8 years ago there there is interval greater degenerative change particularly at the level of L2-L3 with areas visualized interval deep Schmorl''s node or disc disease especially involving the inferior endplate with moderate neural foramina narrowing mild to moderate central stenosis at the level of L2-3 L4-L5. When appropriate. Consider follow-up MRI. No visualized acute loss of height or alignment. Overdistended bladder recommend voiding and/or catheterization. Recommend pre and post void imaging if appropriate. * MRI: Moderate central canal stenosis at L3-L4, mild stenosis of right intervertebral neural foramen and small posterior bulging annulus. Moderate L2-3 intervertebral osteochondritis posterior bulging annulus and mild central canal stenosis. * Through [facility]: duplex on 09/09 showed SVT on left small saphenous vein near the saphenofemoral junction * Check CT leg Pain control. Medrol dose pack. No definitive etiology of her pain is identified. Will check CT of leg w/o contrast to see if there is an occult fracture. PLAN: Plan Chronic conditions: * Recent history infected AVF: Patient with recent hospitalization secondary to infected AV graft with surgical intervention and antibiotic therapy treatment, encourage continued outpatient follow-up as previously arranged. * Chronic Kidney Disease Stage IV with pending HD initiation: Awaiting admission BUN/creatinine, baseline renal function most recently in the 4 range but has vacillated, will plan repeat in a.m. if able, follows with [facility] nephrology. * Chronic COPD/asthma: From current list not on any chronic inhalers, will have PRN albuterol, HOB, IS parameters. * Hypertension: Continue home regimen including labetalol, PRN hydralazine. * Hyperlipidemia: Not on regimen, defer to outpatient. * Anxiety and depression/bipolar disorder: Currently only regimen noted per her list is Elavil, will continue although this certainly could be from her chronic neuropathy associate with diabetes as well. * Chronic normocytic anemia/AOCD: Still awaiting admission CBC as noted, baseline hemoglobin noted most recently 07/29/2021 9.8, will continue to trend as able, continue iron supplementation. * Diabetes mellitus type II with chronic neuropathy: Hold oral home regimen, continue home insulin regimen, ADA diet, accu checks w/ ISS. * GERD: We will continue patient home PPI. DVT prophylaxis: Heparin. CODE status: Full code. Disposition: to [facility] pending CT Charges/Coding Visit Charges Inpatient E&M: 49145 Subs Hosp L1 09/12/22 0915 <Electronically signed by Sylvester Ortiz DO> Cosigner Signature (if applicable): CC: ~ Signed [facility] Work Phone: 1(461) 698-958907-13-2023 Discharge summary Author Sylvester [facility] September 11, 2022 10:45am Note Date/Time September 11, 2022 10:3 9am [facility] Medical Records Department [address] [place] [address] Transfer to [facility] MR#: [id number] Acct: [id number] Name: Margareth GONZALEZ ARNOLD Rep #:[id number] : 1965 57 From: Sylvester Ortiz DO PCP: Dr. Ignacio Cheatham MD Status:ADM I NO Certification of patient admission REQUIRED AT TIME OF ADMISSION. I CERTIFY THAT POST-HOSPITAL ECF SERVICES ARE REQUIRED TO BE GIVEN ON AN IN-PATIENT BASIS BECAUSE OF THE ABOVE NAMED PATIENT'S NEED FOR CARE HOME CARE ON A CONTINUING BASIS FOR THE CONDITION(S) FOR WHICH HE/SHE WAS RECEIVING IN-PATIENT HOSPITAL SERVICES PRIOR TO HIS/HER TRANSFER TO THE [facility]. 09/11/22 1045<Electronically signed by Sylvester Ortiz DO> Diet Diet Order/Speech Therapy: 09/10/22 04:37 Diet: Consistent Carb - Calorie Controlled Food consistency:: Regular Liquid Consistency:: Regular/Thin How many daily calories?: 1800 calorie Routine Orders/Code Status Routine Lab Work: BMP Code Status: Full Code Therapies Weight Bearing: Full weight bearing Extremity Affected:: Right Lower Physical Therapy: Eval and Treat Occupational Therapy: Eval and Treat Problem/Diagnosis (1) Right leg pain: Status: Acute Code(s): M79.604 - Pain in right leg Plan: Acute Intractable RLE Pain with radiculopathy: Plain film of the right hip in the ED and recent right knee plain film not marked appearing although notable chronic disease, pending Studies: * CT lumbar spine: Since prior study, 8 years ago there there is interval greater degenerative change particularly at the level of L2-L3 with areas visualized interval deep Schmorl''s node or disc disease especially involving the inferior endplate with moderate neural foramina narrowing mild to moderate central stenosis at the level of L2-3 L4-L5. When appropriate. Consider follow-up MRI. No visualized acute loss of height or alignment. Overdistended bladder recommend voiding and/or catheterization. Recommend pre and post void imaging if appropriate. * MRI: Moderate central canal stenosis at L3-L4, mild stenosis of right intervertebral neural foramen and small posterior bulging annulus. Moderate L2-3 intervertebral osteochondritis posterior bulging annulus and mild central canal stenosis. * Through [facility]: duplex on 09/09 showed SVT on left small saphenous vein near the saphenofemoral junction Pain control. Medrol dose pack. Plan Chronic conditions: * Recent history infected AVF: Patient with recent hospitalization secondary to infected AV graft with surgical intervention and antibiotic therapy treatment, encourage continued outpatient follow-up as previously arranged. * Chronic Kidney Disease Stage IV with pending HD initiation: Awaiting admission BUN/creatinine, baseline renal function most recently in the 4 range but has vacillated, will plan repeat in a.m. if able, follows with [facility] nephrology. * Chronic COPD/asthma: From current list not on any chronic inhalers, will have PRN albuterol, HOB, IS parameters. * Hypertension: Continue home regimen including labetalol, PRN hydralazine. * Hyperlipidemia: Not on regimen, defer to outpatient. * Anxiety and depression/bipolar disorder: Currently only regimen noted per her list is Elavil, will continue although this certainly could be from her chronic neuropathy associate with diabetes as well. * Chronic normocytic anemia/AOCD: Still awaiting admission CBC as noted, baseline hemoglobin noted most recently 07/29/2021 9.8, will continue to trend as able, continue iron supplementation. * Diabetes mellitus type II with chronic neuropathy: Hold oral home regimen, continue home insulin regimen, ADA diet, accu checks w/ ISS. * GERD: We will continue patient home PPI. DVT prophylaxis: Heparin. CODE status: Full code. Disposition: to [facility] pending insurance authorization. Allergies/Procedures Done in Hospital Allergies balsam juan Allergy (Unknown, Verified 09/10/22 04:56) UNKNOWN mold Allergy (Unknown, Verified 09/10/22 04:30) unknown vanilla extract flavor Allergy (Unknown, Verified 09/10/22 04:30) unknown lisinopril Allergy (Verified 09/10/22 04:30) unknown x Penicillins Allergy (Verified 09/10/22 04:30) Anaphylaxis tetracycline [Tetracycline] Allergy (Verified 09/10/22 04:30) Anaphylaxis codeine Adverse Reaction (Verified 09/10/22 04:30) Abd cramps/diarrhea diphenhydramine HCl [From Benadryl] Adverse Reaction (Verified 09/10/22 04:30) Upset Stomach hydrocodone bitartrate [From Vicodin] Adverse Reaction (Verified 09/10/22 04:30) Abd cramps/diarrhea NSAIDS (Non-Steroidal Anti-Inflamma Adverse Reaction (Verified 09/10/22 04:30) Unknown Type of Care/Length of Stay Estimated LOS: Convalescent Care Less Than 30 days Type of Care Needed: Skilled Rehab Potential: Fair Prognosis: Good Additional Orders/Day of Discharge Day of Discharge: 09/11/22 Discharge Plan Admission Admit Date/Time: 09/10/22 02:13 Primary Reason for Your Visit: right leg pain. debility Attending Provider: Sylvester Ortiz Primary Care Provider: Ignacio Cheatham Consulting Providers: Lizzy Bragg Instructions Additional Instructions / Restrictions: Follow up with [facility]. Discharge Orders/Prescriptions Prescriptions: New acetaminophen 325 mg Tablet 650 mg PO Q4H PRN PRN (Reason: Fever, pain 1-10/) Qty: 0 0RF insulin lispro [Humalog KwikPen Insulin] 100 unit/mL Insulin Pen See Protocol subcut ACHS Qty: 0 0RF Protocol: 3. Sliding Scale Insulin Med Dosing Condition: 150-189 mg/dl = 1 unit Condition: 190-229 mg/dl = 2 units Condition: 230-269 mg/dl = 3 units Condition: 270-309 mg/dl = 4 units Condition: 310-349 mg/dl = 5 units Condition: 350-399 mg/dl = 6 units Condition: 400-449 mg/dl = 7 units Condition: Greater than 449 call physician Protocol Text: - Use for Total Daily Dose of Insulin 37-55 units - Obsese, infected, or steroid patients MEDIUM DOSING ALGORITHIM lidocaine 5 % Adhesive Patch,Medicated 2 patch topical DAILY Qty: 0 0RF Protocol: *Topical Application Instructions APPLICATION INSTRUCTIONS: R hip, R knee methylprednisolone 4 mg Tablets,Dose Pack 4 mg PO 0800,1200,1700 Qty: 0 0RF oxycodone 5 mg Tablet 5 mg PO Q4H PRN PRN (Reason: Pain Score 4-10) 3 Days Qty: 12 0RF Remove Patch 1 patch topical DAILY@2200 Qty: 0 0RF Continued cholecalciferol (vitamin D3) [Vitamin D3] 1,000 UNIT capsule 5,000 unit PO DAILY omeprazole 20 MG capsule 20 mg PO DAILY labetalol 200 MG tablet 200 mg PO BID glipizide 5 MG tablet 10 mg PO DAILY aspirin [Aspir-Low] 81 MG tablet,delayed release (DR/EC) 81 mg PO DAILY melatonin 5 MG capsule 5 mg PO QHS ferrous sulfate [Iron (ferrous sulfate)] 325 MG tablet 325 mg PO DAILY Elavil 1 tab PO DAILY atorvastatin 40 mg tablet 40 mg PO QHS calcitriol 0.25 mcg capsule 0.25 mcg PO BID Trulicity 1.5 mg/0.5 mL pen injector SUBCUT .every thursday sevelamer HCl 800 mg tablet 1,600 mg PO QHS sodium bicarbonate 650 mg tablet 650 mg PO QHS Eliquis 2.5 mg tablet 2.5 mg PO BID sertraline 50 mg tablet 50 mg PO QHS hydroxyzine HCl 50 mg tablet 50 mg PO Q6H PRN (Reason: itching) amitriptyline 100 mg tablet 100 mg PO QHS Discontinued Vitamin 1 EACH tablet 1 ea PO DAILY Oxaydo 5 mg tablet, oral only 5 mg PO Q8H PRN (Reason: pain) hydrocodone-acetaminophen 5-325 mg tablet 1 tab PO Q6H PRN (Reason: pain) 3 Days Qty: 12 0RF Referrals / Follow Up: Ignacio Cheatham MD [Primary Care Provider] - Within 2 Weeks Disposition Disposition (needs filled in before D/C Order can be placed): [facility] 09/11/22 1045 <Electronically signed by Sylvester Ortiz DO> Cosigner Signature (if applicable): CC: Dr. Lizzy Bragg MD; Dr. Ignacio Cheatham MD ~ [facility] Work Phone: 1(345) 819-308807-13-2023 Progress note Author Sylvester [facility] September 11, 2022 10:37am Note Date/Time September 11, 2022 8:45 am [facility] Medical Records Department [address] [place] [address] Progress Note - Hospitalist 09/11/22 0842 MR#: [id number] Acct: [id number] Name: Margareth GONZALEZ ARNOLD Rep #:[id number] : 1965 57 From: Sylvester Ortiz DO PCP: Dr. Ignacio Cheatham MD Status:ADM I NO Location: [address] Reason for Visit Reason for Visit: Diagnoses Obesity, unspecified (09/10/22) Pain in right leg (09/10/22) Subjective Subjective Still with pain in RLE, but improving. Objective Data Objective Data Vital Signs: Vital Signs Temp Pulse Resp BP Pulse Ox O2 Del Method 36.6 C 78 16 120/75 95 Room Air 09/11/22 02:35 09/11/22 02:35 09/11/22 02:35 09/11/22 02:35 09/11/22 07:33 09/11/22 08:11 Oxygen Delivery Method Room Air Weight: 105.732 kg Body Mass Index (BMI) 35.4 Intake & Output: Intake and Output for Last 24 Hours 09/09/22 09/10/22 09/11/22 23:59 23:59 23:59 Intake Total 240 / 240 Output Total 850 / 1250 650 / 650 Balance -610 / -1010 -650 / -650 Lab / Micro Data 09/10/22 06:00 09/10/22 06:00 Labs: Laboratory Results - last 24 hr 09/10/22 07:57: POC Glucose 160 H 09/10/22 11:56: POC Glucose 214 H 09/10/22 16:55: POC Glucose 295 H 09/10/22 21:22: POC Glucose 214 H 09/11/22 07:51: POC Glucose 190 H Radiography Diagnostic Testing: Radiology Impression Lumbar Spine MRI 09/10/22 05:55 IMPRESSION: 1. No MRI evidence of lumbar extruded disc fragment or disc protrusion. 2. Moderate central canal stenosis at L3-L4 disc space level with an AP canal diameter of 8 mm, mild stenosis of the right intervertebral neural foramen and small posterior bulging annulus. 3. Moderate L2-L3 intervertebral osteochondritis (Modic type I), small posterior bulging annulus and mild central canal stenosis with an AP canal diameter of 9 mm. Electronically Signed: Raymon Goetz MD at 11:49 EDT , Physical Exam Const alert and no apparent distress HEENT head/scalp atraumatic Extremity Extremity Narrative: TTP over medial right knee, particularly distal to knee. No knee effusion. No erythema. Assessment & Plan Assessment/Plan (1) Right leg pain: PLAN: Acute Intractable RLE Pain with radiculopathy: Plain film of the right hip in the ED and recent right knee plain film not marked appearing although notable chronic disease, pending Studies: * CT lumbar spine: Since prior study, 8 years ago there there is interval greater degenerative change particularly at the level of L2-L3 with areas visualized interval deep Schmorl''s node or disc disease especially involving the inferior endplate with moderate neural foramina narrowing mild to moderate central stenosis at the level of L2-3 L4-L5. When appropriate. Consider follow-up MRI. No visualized acute loss of height or alignment. Overdistended bladder recommend voiding and/or catheterization. Recommend pre and post void imaging if appropriate. * MRI: Moderate central canal stenosis at L3-L4, mild stenosis of right interv ertebral neural foramen and small posterior bulging annulus. Moderate L2-3 intervertebral osteochondritis posterior bulging annulus and mild central canal stenosis. * Through [facility]: duplex on 09/09 showed SVT on left small saphenous vein near the saphenofemoral junction Pain control. Medrol dose pack. PLAN: Plan Chronic conditions: * Recent history infected AVF: Patient with recent hospitalization secondary to infected AV graft with surgical intervention and antibiotic therapy treatment, encourage continued outpatient follow-up as previously arranged. * Chronic Kidney Disease Stage IV with pending HD initiation: Awaiting admission BUN/creatinine, baseline renal function most recently in the 4 range but has vacillated, will plan repeat in a.m. if able, follows with [facility] nephrology. * Chronic COPD/asthma: From current list not on any chronic inhalers, will have PRN albuterol, HOB, IS parameters. * Hypertension: Continue home regimen including labetalol, PRN hydralazine. * Hyperlipidemia: Not on regimen, defer to outpatient. * Anxiety and depression/bipolar disorder: Currently only regimen noted per her list is Elavil, will continue although this certainly could be from her chronic neuropathy associate with diabetes as well. * Chronic normocytic anemia/AOCD: Still awaiting admission CBC as noted, baseline hemoglobin noted most recently 07/29/2021 9.8, will continue to trend as able, continue iron supplementation. * Diabetes mellitus type II with chronic neuropathy: Hold oral home regimen, continue home insulin regimen, ADA diet, accu checks w/ ISS. * GERD: We will continue patient home PPI. DVT prophylaxis: Heparin. CODE status: Full code. Disposition: to [facility] pending insurance authorization. Charges/Coding Visit Charges Inpatient E&M: 60177 Subs Hosp L1 09/11/22 1037 <Electronically signed by Sylvester Ortiz DO> Cosigner Signature (if applicable): CC: ~ Signed [facility] Work Phone: 1(444) 629-484707-13-2023 Miscellaneous Notes* Telephone Encounter - Ana Foley RN - 09/11/2022 12:13 PM EDT Images from the original note were not included. EMERGENCY ROOM CALL BACK Today's date: September 11, 2022 Patient identified by name and date of . NO Primary Cancer Diagnosis: No cancer, has anemia due to CKD Reason for Emergency Room Visit: right leg pain Time of day presented to Emergency Room 1014am If Mon-Thursday during business hours: Did you contact your Supervisor/Provider? No FOLLOW UP: Patient started on Eliquis and has follow up scheduled with vascular 09/23/22 Ana Foley RN [facility] Progress note Author Sylvester Ortiz [facility] September 10, 2022 1:59pm Note Date/Time September 10, 2022 8:05 am [facility] Medical Records Department [address] [place] [address] Progress Note - Hospitalist 09/10/22 0757 MR#: [id number] Acct: [id number] Name: Margareth GONZALEZ Rep #:[id number] : 1965 57 From: Sylvester Ortiz DO PCP: Dr. Ignacio Cheatham MD Status:ADM I NO Location: [place] [address] Reason for Visit Reason for Visit: Diagnoses Obesity, unspecified (09/10/22) Pain in right leg (09/10/22) Subjective Subjective Still with pain down right leg. Medially around right knee, but when she stands up, it goes down to her foot. Objective Data Objective Data Vital Signs: Vital Signs Temp Pulse Resp BP Pulse Ox O2 Del Method 36.9 C 92 18 159/67 H 99 Room Air 09/10/22 04:18 09/10/22 04:18 09/10/22 04:18 09/10/22 04:18 09/10/22 04:18 09/10/22 04:18 Oxygen Delivery Method Room Air Weight: 105.687 kg Body Mass Index (BMI) 35.4 Intake & Output: Intake and Output for Last 24 Hours 09/08/22 09/09/22 09/10/22 23:59 23:59 23:59 Output Total 250 / 250 Balance -250 / -250 Lab / Micro Data 09/10/22 06:00 09/10/22 06:00 Labs: Laboratory Results - last 24 hr 09/10/22 02:41: WBC 6.4, RBC 3.04 L, Hgb 9.4 L, Hct 30.0 L, MCV 98.7, MCH 30.9, MCHC 31.3 L, RDW Std Deviation 46.0 H, RDW Coeff of Ben 12.8, Plt Count 138 L, MPV 9.5, Immature Gran % (Auto) 0.500, Neut % (Auto) 62.0, Lymph % (Auto) 25.2, Canyon % (Auto) 8.6, Eos % (Auto) 3.1, Baso % (Auto) 0.6, Absolute Neuts (auto) 4.0, Absolute Lymphs (auto) 1.62, Nucleated RBC % 0, ESR 21, Sodium 136, Potassium 4.8, Chloride 108 H, Carbon Dioxide 20.0 L, Anion Gap 8, BUN 51 H, Creatinine 5.32 H, Estim Creat Clear Calc 11.77, Est GFR (MDRD) Af Amer 11 L, Est GFR (MDRD) Non-Af 9 L, BUN/Creatinine Ratio 9.6 L, Glucose 166 H, Calcium 8.4 L, Phosphorus 6.5 H, Magnesium 1.6, C- React Prot Ext Range 15.60 H 09/10/22 03:12: Lactic Acid 0.8 09/10/22 06:00: WBC 6.6, RBC 2.80 L, Hgb 8.8 L, Hct 27.3 L, MCV 97.5, MCH 31.4, MCHC 32.2, RDW Std Deviation 45.5 H, RDW Coeff of Ben 12.8, Plt Count 137 L, MPV9.5, Immature Gran % (Auto) 0.300, Neut % (Auto) 66.3, Lymph % (Auto) 22.2, Canyon% (Auto) 8.3, Eos % (Auto) 2.3, Baso % (Auto) 0.6, Absolute Neuts (auto) 4.4, Absolute Lymphs (auto) 1.47, Nucleated RBC % 0, Sodium 137, Potassium 5.0, Chloride 110 H, Carbon Dioxide 19.0 L, Anion Gap 8, BUN 50 H, Creatinine 5.24 H,Estim Creat Clear Calc 11.95, Est GFR (MDRD) Af Amer 11 L, Est GFR (MDRD) Non-Af9 L, BUN/Creatinine Ratio 9.5 L, Glucose 243 H, Calcium 7.9 L, Total Bilirubin 0.40, AST 23, ALT 20, Alkaline Phosphatase 86, Total Protein 6.0 L, Albumin 2.6 L, Globulin 3.4, Albumin/Globulin Ratio 0.8 L Radiography Diagnostic Testing: Radiology Impression Hip/Pelvis X-Ray 09/10/22 01:01 IMPRESSION: Bony osteopenia and mild degenerative change. No visualized acute fracture. Electronically Signed: Lynne Orozco MD at 1:42 EDT , Lumbar Spine CT 09/10/22 01:01 IMPRESSION: Since prior study, 8 years ago there there is interval greater degenerative change particularly at the level of L2-L3 with areas visualized interval deep Schmorl''s node or disc disease especially involving the inferior endplate with moderate neural foramina narrowing mild to moderate central stenosis at the level of L2-3 L4-L5. When appropriate. Consider follow-up MRI. No visualized acute loss of height or alignment. Overdistended bladder recommend voiding and/or catheterization. Recommend pre and post void imaging if appropriate. Incidental visualization of gallbladder atrophy atherosclerotic disease of the aorta. Electronically Signed: Lynne Orozco MD at 2:04 EDT , Physical Exam Const alert and no apparent distress Constitutional Narrative: appears older than stated age. Extremity Extremity Narrative: pain on medial right leg, swatted my hand away when I lightly palpated her leg. Assessment & Plan Assessment/Plan (1) Right leg pain: PLAN: Acute Intractable RLE Pain with radiculopathy: Plain film of the right hip in the ED and recent right knee plain film not marked appearing although notable chronic disease, pending CT lumbar spine * Since prior study, 8 years ago there there is interval greater degenerative change particularly at the level of L2-L3 with areas visualized interval deep Schmorl''s node or disc disease especially involving the inferior endplate with moderate neural foramina narrowing mild to moderate central stenosis at the level of L2-3 L4-L5. When appropriate. Consider follow-up MRI. No visualized acute loss of height or alignment. Overdistended bladder recommend voiding and/or catheterization. Recommend pre and post void imaging if appropriate. MRI * Moderate central canal stenosis at L3-L4, mild stenosis of right intervertebral neural foramen and small posterior bulging annulus. * Moderate L2-3 intervertebral osteochondritis posterior bulging annulus and mild central canal stenosis. Through [facility]: * duplex on 09/09 showed SVT on left small saphenous vein near the saphenofemoral junction Pain control. Medrol dose pack. PLAN: Plan Chronic conditions: * Recent history infected AVF: Patient with recent hospitalization secondary to infected AV graft with surgical intervention and antibiotic therapy treatment, encourage continued outpatient follow-up as previously arranged. * Chronic Kidney Disease Stage IV with pending HD initiation: Awaiting admission BUN/creatinine, baseline renal function most recently in the 4 range but has vacillated, will plan repeat in a.m. if able, follows with [facility] nephrology. * Chronic COPD/asthma: From current list not on any chronic inhalers, will have PRN albuterol, HOB, IS parameters. * Hypertension: Continue home regimen including labetalol, PRN hydralazine. * Hyperlipidemia: Not on regimen, defer to outpatient. * Anxiety and depression/bipolar disorder: Currently only regimen noted per her list is Elavil, will continue although this certainly could be from her chronic neuropathy associate with diabetes as well. * Chronic normocytic anemia/AOCD: Still awaiting admission CBC as noted, baseline hemoglobin noted most recently 07/29/2021 9.8, will continue to trend as able, continue iron supplementation. * Diabetes mellitus type II with chronic neuropathy: Hold oral home regimen, continue home insulin regimen, ADA diet, accu checks w/ ISS. * GERD: We will continue patient home PPI. DVT prophylaxis: Heparin. CODE status: Full code. Charges/Coding Visit Charges Inpatient E&M: 36976 Subs Hosp L2 09/10/22 1319 <Electronically signed by Sylvester Ortiz DO> Cosigner Signature (if applicable): CC: ~ Signed [facility] Work Phone: 1(674) 674-848907-12-2023 Miscellaneous Notes* Telephone Encounter - Fab Cochran APRN.BENEFITS ADMINISTRATOR - 09/10/2022 11:15 AM EDT Called Bernie Morse to confirm ok for midline for medication administration They are required to get nephrology approval based on her labs. Advised line must be to the R arm and not in L asshe has maturing fistula to L. They are aware. Do not anticipate need for PICC or IJ at this time. * Telephone Encounter - Carissa Villalobos - 09/10/2022 11:10 AM EDT [facility] phoned req ok for line placement slot at 12:30 Call [phone] Bernie Cochran Paged [facility] Miscellaneous Notes* Telephone Encounter - Mago Nicholas - 09/10/2022 10:37 AM EDT Sent [facility] message to schedule follow up * Telephone Encounter - La Adler MA - 09/10/2022 10:23 AM EDT Requester: Pharmacy Last Visit in Endocrinology: Provider name: Rojelio Clark MD , Date 10/02/2021 Next Scheduled Appt in Endo: Visit date not found Last Refill: 10/02/2021 Number of Refills given: 3 PSS NOTE: Patient needs scheduled appointment. Overdue for 3 months f/u Requested Prescriptions Pending Prescriptions Disp Refills glipiZIDE XL (GLUCOTROL XL) 5 mg 24 hr tablet [Pharmacy Med Name: GLIPIZIDE ER TABS 5MG] 180 tablet0 Sig: TAKE 2 TABLETS ONCE DAILY Please review and advise. La Adler MA documented [facility]23 Discharge summary Author Minh Arroyo [facility] September 10, 2022 3:48am Note Date/Time September 10, 2022 3:07 am [facility] Medical Records Department [address] [place] [address] Emergency Department Summary 09/10/22 MR#: [id number] Acct: [id number] Name: Margareth GONZALEZ Rep #:[id number] : 1965 57 From: Minh Arroyo DO PCP: Dr. Ignacio Cheatham MD Status:ADM I NO Location: [facility] [id number] HPI History of Present Illness Chief Complaint: Lower Extremity Injury Informant: patient Narrative Narrative: Patient is a 57-year-old female with past medical history of chronic kidney disease type 2 diabetes hypertension and COPD. She states that she has been having increasing right leg pain with no trauma. She states it is to the point where she cannot stand secondary to the increased pain with weightbearing and this makes her unable to perform her activities of daily living. She reports she contact her family doctor because of this and he advised her to go to the ERfor potential admission and even alf placement based on her worsening pain and inability to care for self. Patient does states she had x-rays of her right knee which revealed no acute findings and an ultrasound of her right leg which revealed superficial venous thrombus but no deep vein thrombosis [facility] Medical History (Updated 09/10/22 @ 03:[address] Minh Arryoo DO) Anxiety and depression Bipolar disorder Chronic anemia COPD with asthma Diabetes mellitus, type 2 Fibromyalgia Former tobacco use HLD (hyperlipidemia) HTN (hypertension) Neuropathy Home Medications cholecalciferol (vitamin D3) 25 mcg (1,000 unit) capsule (Vitamin D3) 5,000 unitPO DAILY 10/03/13 [History Last Taken 1 Day Ago ~11/24/16] omeprazole 20 mg capsule,delayed release 20 mg PO DAILY 08/23/14 [History Last Taken 11/25/16] glipizide 5 mg tablet 10 mg PO DAILY 04/28/15 [History Last Taken 11/25/16] labetalol 200 mg tablet 200 mg PO BID 04/28/15 [History Last Taken 11/25/16] aspirin 81 mg tablet,delayed release (Aspir-Low) 81 mg PO DAILY 05/27/16 [History Last Taken 11/25/16] melatonin 5 mg capsule 5 mg PO QHS 05/27/16 [History Last Taken 1 Day Ago ~11/24/16] ferrous sulfate 325 mg (65 mg iron) tablet (Iron (ferrous sulfate)) 325 mg PO DAILY 11/25/16 [History Last Taken 11/25/16] Elavil 1 tab PO DAILY 11/12/17 [History Last Taken Unknown] vits no.130-ferrous fum 27 mg iron-folic acid 800 mcg tablet ( Vitamin) 1 ea PO DAILY 11/12/17 [History Last Taken Unknown] hydrocodone-acetaminophen 5-325mg 5mg-325mg 1 tab PO Q6H PRN pain 3 days #12 tabs 09/07/22 [Rx Last Taken Unknown] atorvastatin 40 mg tablet 40 mg PO QHS hyperlipidemia 09/10/22 [History Last Taken Unknown] calcitriol 0.25 mcg capsule 0.25 mcg PO BID 09/10/22 [History Last Taken Unknown] dulaglutide 1.5 mg/0.5 mL subcutaneous pen injector (Trulicity) mg subcut 09/10/22 [History Last Taken 09/07/22] sevelamer HCl 800 mg tablet 1,600 mg PO QHS 09/10/22 [History Last Taken Unknown] sodium bicarbonate 650 mg tablet 650 mg PO QHS 09/10/22 [History Last Taken Unknown] Allergy/AdvReac Type Severity Reaction Status Date / Time Penicillins Allergy Anaphylaxis Verified 09/09/22 17:20 tetracycline [Tetracycline] Allergy Anaphylaxis Verified 09/09/22 17:20 codeine AdvReac Abd Verified 09/09/22 17:20 cramps/diarrhea diphenhydramine HCl AdvReac Upset Verified 09/09/22 17:20 [From Benadryl] Stomach hydrocodone bitartrate AdvReac Abd Verified 09/09/22 17:20 [From Vicodin] cramps/diarrhea NSAIDS (Non-Steroidal AdvReac Unknown Verified 09/09/22 17:20 Anti-Inflamma Family History (Updated 09/10/22 @ 02:[address] Lizzy Bragg MD) Mother Heart disease Hypertension Diabetes Kidney disease Father Diabetes Surgical History (Updated 09/10/22 @ 02:[address] Lizzy Bragg MD) H/O gastric bypass H/O vascular surgery S/P appendectomy S/P cholecystectomy Social History (Updated 09/10/22 @ 02:[address] Lizzy Bragg MD) household members: none Smoking Status: Former smoker how long ago did patient quit smoking: Quit age 24. alcohol intake: never substance use type: does not use ROS ROS ED Constitutional Constitutional ED: Denies chills or fever(s) ENT ENT ED: Denies sore throat Cardiovascular Cardiovascular: Denies chest pain Respiratory/Chest Respiratory/Chest: Denies cough or dyspnea Gastrointestinal Gastrointestinal: Denies abdominal pain, diarrhea, nausea or vomiting Genitourinary Genitourinary ED: Denies dysuria Musculoskeletal Musculoskeletal: Reports other Details: Positive right leg pain Integumentary Denies Abrasions or rash Neurologic Neurologic: Denies headache(s) Hematologic/Lymphatic Hematologic/Lymphatic: Denies easy bleeding or easy bruising EXAM Physical Exam Const Vital Signs: 09/09/22 17:17 09/09/22 21:48 09/09/22 23:00 Temperature 97.2 F L Temperature Source Temporal Pulse Rate 99 Respiratory Rate 15 16 18 Blood Pressure 190/89 H Blood Pressure Mean 122 Pulse Ox 99 Oxygen Delivery Method Room Air 09/10/22 01:00 Temperature Temperature Source Pulse Rate Respiratory Rate 18 Blood Pressure Blood Pressure Mean Pulse Ox Oxygen Delivery Method Positive well nourished, well developed and obese General Appearance ED: well developed Nutritional Appearance: obese HEENT HEENT Narrative: Normocephalic atraumatic Eyes PERRL and EOMs intact bilaterally Neck supple Neck Narrative: No nuchal rigidity or meningeal signs Resp normal respiratory effort and clear to auscultation bilaterally Cardio regular rate and regular rhythm GI normal to inspection, nondistended, normoactive bowel sounds, non-tender and non-distended GI Narrative: No voluntary guarding or rigidity no pulsatile mass Auscultation: normoactive bowel sounds Palpation: soft Back/Spine Back/Spine Narrative: No saddle anesthesia. Negative straight leg raise. Patellar reflexes are plus 1 out of 4 bilaterally. No clonus or Babinski. Extremity Extremity Narrative: Right lower extremity has scant ecchymotic lesions but patient denies any previous trauma. There is no pitting edema present. No overlying erythema or warmth to suggest cellulitis. Capillary refill is less than 3 seconds. Compartments are soft going against compartment syndrome. Patient still has active range of motion. Neuro oriented x3 and CN's II-XII intact bilaterally Sensorium / Orientation: alert Psych mental status grossly normal Skin no rashes or lesions noted MDM MDM MDM Narrative Medical decision making narrative: Patient presented to the ER hypertensive but has a past medical history of this and otherwise with stable vitals. She is already had an x-ray of her right kneeas well as reported venous duplex. By exam there is no obvious signs of cellulitis abscess or compartment syndrome. Also by exam there is not appear alec saddle anesthesia indicating cauda equina syndrome or obvious signs of lumbarradiculopathy. Patient blood work was obtained and shows patient have an elevated creatinine of 5.3 but this is near her baseline and otherwise no clinically significant findings other than elevation to her C-reactive protein which is nonspecific in nature. X-ray of the right hip reveals degenerative changes and CT of the low back also shows degenerative changes without compression fracture or obvious nerve impingement. Based on the fact the patient states she is unable to ambulate or care for herself medicine was contacted and they do agree to accept the patient at this time. Patient does report that she is willing to go to nursing or rehab if necessary History & Record Review Discussion w/independent historian: Patient Lab Data Attestation: I reviewed the patient's lab results. Labs: Laboratory Results - last 24 hr 09/10/22 02:41 WBC 6.4 RBC 3.04 L Hgb 9.4 L Hct 30.0 L MCV 98.7 MCH 30.9 MCHC 31.3 L RDW Std Deviation 46.0 H RDW Coeff of Ben 12.8 Plt Count 138 L MPV 9.5 Immature Gran % (Auto) 0.500 Neut % (Auto) 62.0 Lymph % (Auto) 25.2 Canyon % (Auto) 8.6 Eos % (Auto) 3.1 Baso % (Auto) 0.6 Absolute Neuts (auto) 4.0 Absolute Lymphs (auto) 1.62 Nucleated RBC % 0 ESR 21 Sodium 136 Potassium 4.8 Chloride 108 H Carbon Dioxide 20.0 L Anion Gap 8 BUN 51 H Creatinine 5.32 H Estim Creat Clear Calc 11.77 Est GFR (MDRD) Af Amer 11 L Est GFR (MDRD) Non-Af 9 L BUN/Creatinine Ratio 9.6 L Glucose 166 H Calcium 8.4 L C-React Prot Ext Range 15.60 H Radiography Diagnostic Testing: Clinical Impression(s) from Imaging Studies Hip/Pelvis X-Ray 09/10/22 01:01 IMPRESSION: Bony osteopenia and mild degenerative change. No visualized acute fracture. Electronically Signed: Lynne Orozco MD at 1:42 EDT , Lumbar Spine CT 09/10/22 01:01 IMPRESSION: Since prior study, 8 years ago there there is interval greater degenerative change particularly at the level of L2-L3 with areas visualized interval deep Schmorl''s node or disc disease especially involving the inferior endplate with moderate neural foramina narrowing mild to moderate central stenosis at the level of L2-3 L4-L5. When appropriate. Consider follow-up MRI. No visualized acute loss of height or alignment. Overdistended bladder recommend voiding and/or catheterization. Recommend pre and post void imaging if appropriate. Incidental visualization of gallbladder atrophy atherosclerotic disease of the aorta. Electronically Signed: Lynne Orozco MD at 2:04 EDT , Management Discussion w/another healthcare provider: Hospitalist Discharge Plan Dx/Rx/DC Orders Clinical Impression: Right leg pain, Inability to walk, History of diabetes mellitus, type II, Benign essential hypertension, Kidney disease, chronic, stage IV (GFR 15-29 ml/min) Disposition Disposition: Acute Care Hospital [facility] What to do if you have Problems For any increased pain, shortness of breath, bleeding, nausea or vomiting, chestpain, or any unexpected problems, contact your Primary Care Provider. Call [facility] ([phone]) or report to the closest Emergency Room. Call 911 if necessary. 09/10/22 0348 <Electronically signed by Minh Arroyo DO> Cosigner Signature (if applicable): CC: Dr. Ignacio Cheatham MD ~ Signed [facility] Work Phone: [phone]) 383-716807-12-2023 History and physical note Author [facility] September 10, 2022 2:13am Note Date/Time September 10, 2022 12:4 5am [facility] Medical Records Department [address] [place] [address] H&P Exam - Hospitalist 09/10/22 0043 MR#: [id number] Acct: [id number] Name: Margareth GONZALEZ Rep #:[id number] : 1965 57 From: Lizzy Bragg MD PCP: Dr. Ignacio Cheatham MD Status:REG E R Location: ED HPI - General General Date of Admission: 09/10/22 Date of Service: 09/10/22 Chief Complaint: RLE pain, radicular pain. HPI Narrative The patient is a 57 y/o F w/ PMHx: COPD/Asthma, Anxiety and Depression/Bipolar disorder, CKD stage IV with planned for upcoming HD start with recent AVF graft infection with hospitalization at [place] with surgery and abx therapy following with [facility] nephrology, Diabetes mellitus type II w/ chronic neuropathy, Fibromyalgia, HTN, HLD, Chronic normocytic anemia who presents to the [facility] EDon 09/10/22 with history of ongoing right-sided lower extremity pain described asa dull aching and sharp stabbing with shooting pains down the leg to 10 of 10 inseverity especially with any activity or movement attempts starting approximately 1.5 weeks prior to current presentation with no reported specific injury or fall but ongoing with recent per her report outpatient negative right lower extremity DVT ultrasound and recent assessment in the emergency room with unremarkable right knee plain film however she is unable to take care of herselfprompting PCP to refer the ED for further evaluation. In the ED work-up included T97.2, heart rate 99, BP 190/89, respiratory rate 15, 99% on room air, plain the right hip with bony osteopenia and mild degenerative changes with no visualized acute fracture, pending noncontrast lumbar CT spine upon requested evaluation of patient, pending CBC, BMP, ESR, CRP and lactic acid upon requestedevaluation of patient secondary to significant difficulties with IV and lab drawaccess potential. Discussed with ED physician and noted intention for ultrasound guidance attempts. If patient is unable to have this may necessitatemidline as would like to defer PICC given planned upcoming dialysis and already had issues with one of her AV grafts. [facility] Medical History (Updated 09/10/22 @ 02:[address] Lizzy Bragg MD) Anxiety and depression Bipolar disorder Chronic anemia COPD with asthma Diabetes mellitus, type 2 Fibromyalgia Former tobacco use HLD (hyperlipidemia) HTN (hypertension) Neuropathy Home Medications cholecalciferol (vitamin D3) 25 mcg (1,000 unit) capsule (Vitamin D3) 5,000 unitPO DAILY 10/03/13 [History Last Taken 1 Day Ago ~11/24/16] omeprazole 20 mg capsule,delayed release 20 mg PO DAILY 08/23/14 [History Last Taken 11/25/16] glipizide 5 mg tablet 10 mg PO BIDAC 04/28/15 [History Last Taken 11/25/16] labetalol 200 mg tablet 200 mg PO DAILY 04/28/15 [History Last Taken 11/25/16] aspirin 81 mg tablet,delayed release (Aspir-Low) 81 mg PO DAILY 05/27/16 [History Last Taken 11/25/16] melatonin 5 mg capsule 5 mg PO QHS 05/27/16 [History Last Taken 1 Day Ago ~11/24/16] ferrous sulfate 325 mg (65 mg iron) tablet (Iron (ferrous sulfate)) 325 mg PO DAILY 11/25/16 [History Last Taken 11/25/16] Elavil 1 tab PO DAILY 11/12/17 [History Last Taken Unknown] pioglitazone 30 mg tablet 30 mg PO DAILY 11/12/17 [History Last Taken Unknown] vits no.130-ferrous fum 27 mg iron-folic acid 800 mcg tablet ( Vitamin) 1 ea PO DAILY 11/12/17 [History Last Taken Unknown] insulin lispro 100 unit/mL subcutaneous solution 10 unit SQ DAILY 07/04/19 [History Last Taken Unknown] hydrocodone-acetaminophen 5-325mg 5mg-325mg 1 tab PO Q6H PRN pain 3 days #12 tabs 09/07/22 [Rx Last Taken Unknown] Allergy/AdvReac Type Severity Reaction Status Date / Time Penicillins Allergy Anaphylaxis Verified 09/09/22 17:20 tetracycline [Tetracycline] Allergy Anaphylaxis Verified 09/09/22 17:20 codeine AdvReac Abd Verified 09/09/22 17:20 cramps/diarrhea diphenhydramine HCl AdvReac Upset Verified 09/09/22 17:20 [From Benadryl] Stomach hydrocodone bitartrate AdvReac Abd Verified 09/09/22 17:20 [From Vicodin] cramps/diarrhea NSAIDS (Non-Steroidal AdvReac Unknown Verified 09/09/22 17:20 Anti-Inflamma Family History (Updated 09/10/22 @ 02:[address] Lizzy Bragg MD) Mother Heart disease Hypertension Diabetes Kidney disease Father Diabetes Surgical History (Updated 09/10/22 @ 02:[address] Lizzy Bragg MD) H/O gastric bypass H/O vascular surgery S/P appendectomy S/P cholecystectomy Social History (Updated 09/10/22 @ 02:[address] Lizzy Bragg MD) household members: none Smoking Status: Former smoker how long ago did patient quit smoking: Quit age 24. alcohol intake: never substance use type: does not use ROS ROS Narrative Admission Review of Systems: CONSTITUTIONAL: No weight loss, fever, chills, + weakness or fatigue. HEENT: Eyes: No visual loss, blurred vision, double vision or yellow sclerae. Ears, Nose, Throat: No hearing loss, sneezing, congestion, runny nose or sore throat. SKIN: No rash or itching, lesions, wounds. CARDIOVASCULAR: No chest pain, chest pressure or chest discomfort, palpitations,edema, orthopnea, syncopal events. RESPIRATORY: No shortness of breath, cough or sputum, wheezing, hemoptysis. GASTROINTESTINAL: No anorexia, nausea, vomiting or diarrhea, abdominal pain, melena, BRBPR. GENITOURINARY: No dysuria, frequency, urgency or retention. NEUROLOGICAL: + RLE radiculopathy. No headache, dizziness, syncope, paralysis, ataxia, focal weakness, change in bowel or bladder control, seizure. MUSCULOSKELETAL: + muscle, back pain, joint pain or stiffness. HEMATOLOGIC: + anemia, bleeding or bruising. LYMPHATICS: No enlarged nodes. No history of splenectomy. PSYCHIATRIC: + history of depression or anxiety. ENDOCRINOLOGIC: No reports of sweating, cold or heat intolerance. No polyuria orpolydipsia. ALLERGIES: +history of asthma, hives, rhinitis. Vital Signs Vital Signs Vital Signs: 09/09/22 17:17 09/09/22 21:48 Temperature 97.2 F L Temperature Source Temporal Pulse Rate 99 Respiratory Rate 15 16 Blood Pressure 190/89 H Blood Pressure Mean 122 Pulse Ox 99 Oxygen Delivery Method Room Air Weight Weight: 227 lb Body Mass Index (BMI) 34.4 Physical Exam Narrative Physical Examination: General: Awake, alert, oriented x 3 and cooperative, seated upright in the ED bed in no apparent distress, mildly uncomfortable appearing but reports ongoing severe RLE pain. Skin: Normal color, normal turgor, no icterus, no cyanosis. HEENT: AT/NC, EOMI, PERRLA, mildly dry MM, no carotid bruits or JVD noted. Lungs: CTA bilaterally, moderate effort, mild decrease BL bases, no rales, ronchi or wheezing. Heart: Currently regular rate and rhythm; no gallop, rub audible. Abdomen: Soft, obese, NTTP, ND, distant normal BS, no obvious evidence of HSM. Extremities: No cyanosis, no clubbing, BL LE ankle mild pitting edema, diffuse TTP RLE primarily knee upward, + SLR, admits to radicular shooting pain. Neurological: Patient awake, alert, oriented as noted, cognitive function intact; pupils equally reactive to light and accommodation, cranial nerves II-XII grossly normal, moving all 4 extremities except extremely limited RLE movements secondary to pain, strength accordingly severely globally decreased. Psychiatric: Affect appears fatigued, uncomfortable, no acute evidence of depressive or anxiety feelings. Assessment & Plan Assessment/Plan (1) Right leg pain: (2) Obesity: PLAN: Plan The patient is a 57 y/o F w/ PMHx: COPD/Asthma, Anxiety and Depression/Bipolar disorder, CKD stage IV with planned for upcoming HD start with recent AVF graft infection with hospitalization at [place] with surgery and abx therapy following with [facility] nephrology, Diabetes mellitus type II w/ chronic neuropathy, Fibromyalgia, HTN, HLD, Chronic normocytic anemia who presents to the [facility] ED on 09/10/22 with history of ongoing right-sided lower extremity pain described as a dull aching and sharp stabbing with shooting pains down the leg to 10 of 10 in severity especially with any activity or movement attempts starting approximately 1.5 weeks prior to current presentation with no reported specific injury or fall. #1. Acute Intractable RLE Pain with radiculopathy: Plain film of the right hip in the ED and recent right knee plain film not marked appearing although notablechronic disease, pending CT lumbar spine noncontrast upon requested evaluation of patient. If CT lumbar spine appropriate will admit to [facility], maintain on fall precautions, frequent positioning, initiate lidoacine patches, tizanidine, medrol dose pack, po/IV narcotic pain regimen, anti-emetics, bowel regimen. Given underlying renal disease currently undergoing the transition to dialysis we will hold aggressive anti-inflammatory regimen. Will consult PT and OT for evaluation as well as Case management for discharge planning. If any concerningfindings on lumbar CT or worsening low threshold to involve orthopedic surgery. #2. Recent history infected AVF: Patient with recent hospitalization in the [place] per reports secondary to infected AV graft with surgical intervention and antibiotic therapy treatment, encourage continued outpatient follow-up as previously arranged. #3. Chronic Kidney Disease Stage IV with pending HD initiation: Awaiting admission BUN/creatinine, baseline renal function most recently in the 4 range but has vacillated, will plan repeat in a.m. if able, follows with [facility] nephrology. #4. Chronic COPD/asthma: From current list not on any chronic inhalers, will have PRN albuterol, HOB, IS parameters. #5. Hypertension: Continue home regimen including labetalol, PRN hydralazine. #6. Hyperlipidemia: Not on regimen, defer to outpatient. #7. Anxiety and depression/bipolar disorder: Currently only regimen noted per her list is Elavil, will continue although this certainly could be from her chronic neuropathy associate with diabetes as well. #8. Chronic normocytic anemia/AOCD: Still awaiting admission CBC as noted, baseline hemoglobin noted most recently 07/29/2021 9.8, will continue to trend asable, continue iron supplementation. #9. Diabetes mellitus type II with chronic neuropathy: Hold oral home regimen, continue home insulin regimen, ADA diet, accu checks w/ ISS. #10. GERD: We will continue patient home PPI. #11. DVT prophylaxis: Heparin. #12. CODE status: Patient does not have healthcare power of commercial real estate attorney or living will in place but notes that if she needed a decision maker if she could not make decisions she would want her sister Halle to be her appointed individual. Discussed CODE status at length including difference between FULL code, DNR-CCA and DNR-CC status. Following discussions about the differences in these status, requested Full Code but if efforts became futile she would prefer to transition to comfort care. Advanced Care Planning Face to Face Time: 16 minutes. Admission Evaluation Time spent evaluating chart, patient history, patient evaluation, care planning and discussion with specialists: 60 minutes. Charges/Coding Visit Charges Inpatient E&M: 75229 Init Hosp L2 Procedures Hospitalists Procedures: 36960 Advncd Care Plan 30 Min 09/10/22 0213 <Electronically signed by Lizzy Bragg MD> Cosigner Signature (if applicable): CC: Dr. Lizzy Bragg MD; Dr. Ignacio Cheatham MD~ Signed [facility] Work Phone: [phone]) [phone] History of Present illness Narrative* Ignacio Cheatham MD - 09/09/2022 4:11 PM EDT Patient presents with: ER F/U HPI: Patient presents today for office visit for ER follow up. Seen in [place] ER today. Right knee pain with swelling. Pain with ambulation. Can not bear any weight. 8/10 pain. Has norco and percocet. Had already had xrays done. Concern is that she cannot even get into her house or ambulate. She may need placement even short term. Lives by herself. US neg for proximal DVT in right lower extremity. Positive for superficial thrombophlebitis in the left small saphenous vein near the saphenofemoral junction. See ER note: 57 year old female presents c/o leg pain. Swelling to right lower leg. Neurovascular intact, no joint tenderness but does have pain to the calf with movement of the ankle and knee joints. Roxicodone and tylenol given for pain relief. History of DVT. Ultrasound obtained. No evidence of DVT but there is superficial thrombophlebitis of the right small saphenous vein near the saphenofemoral junction. Concern with patient's history and location, would benefit from anticoagulant. As patient is on dialysis, discussed with vascular Dr. Jackson. Okay for Eliquis for 45 days, has follow-up in 2 weeks with vascular already scheduled. Discussed with patient who is in agreement with the plan. Safe for discharge home MEDICATIONS: Current Outpatient Medications Medication Sig HYDROcodone-acetaminophen (NORCO) 5-325 mg per tablet as directed. apixaban (ELIQUIS) 2.5 mg tab(s) Take 1 tablet by mouth twice daily. oxyCODONE IR (ROXICODONE) 5 mg immediate release tablet Take 1 tablet by mouth every 8 hours as needed for pain for up to 3 days. calcitriol (ROCALTROL) 0.5 mcg capsule Take 1 capsule by mouth once daily. pioglitazone (ACTOS) 45 mg tablet Take 1 tablet by mouth once daily. sodium polystyrene sulfonate, with sorbitol, (SPS) 15-20 gram/60 mL susp suspension Take 15 gms once sodium bicarbonate 650 mg tablet Take 2 tablets by mouth twice daily. sevelamer (RENAGEL) 800 mg tablet Take 1 tablet by mouth three times daily. hydrOXYzine HCl (ATARAX) 50 mg tablet Take 1 tablet by mouth every 6 hours as needed for itching/rash. oxyCODONE-acetaminophen (PERCOCET) 5-325 mg tablet Take 1 tablet by mouth every 6 hours as needed for pain. labetalol (TRANDATE) 100 mg tablet Take 1 tablet by mouth twice daily. omeprazole (PRILOSEC) 20 mg capsule Take 1 capsule by mouth once daily. sertraline (ZOLOFT) 50 mg tablet Take 1 tablet by mouth once daily. amitriptyline (ELAVIL) 100 mg tablet Take 1 tablet by mouth daily at bedtime. atorvastatin (LIPITOR) 40 mg tablet Take 1 tablet by mouth daily at bedtime. For cholesterol. ondansetron orally disintegrating (ZOFRAN ODT) 4 mg disintegrating tablet Take 1 tablet by mouth every 8 hours as needed for nausea/vomiting. famotidine (PEPCID) 20 mg tablet Take 1 tablet by mouth once daily as needed. TRULICITY 1.5 mg/0.5 mL pen injector INJECT 1.5 MG UNDER THE SKIN ONCE A WEEK glipiZIDE (GLUCOTROL XL) 5 mg 24 hr tablet Take 2 tablets by mouth once daily. flash glucose scanning reader (SimpleReachSTYLE FESTUS 2 READER) Use to check glucose 3 times daily and continuously. 1 per year. flash glucose sensor (FREESTYLE FESTUS 2 SENSOR) kit Use to check glucose 3 times daily and continuously. Change every 14 days. 6 per 90 day supply. baclofen (LIORESAL) 10 mg tablet Take 1 tablet by mouth three times daily as needed. cholecalciferol (VITAMIN D3) 5,000 unit tab Take 5,000 Units by mouth twice daily. aspirin, enteric coated (ADULT LOW DOSE ASPIRIN) 81 mg EC tablet Take 1 tablet by mouth once daily. Vjzbmsjt-Il-Hrx-Fe-FA ( VITAMIN) ORAL Tab Take 1 tablet by mouth once daily. No current facility-administered medications for this visit. ALLERGIES: ALLERGIES Allergen Reactions Vicodin [Hydrocodon* Vomiting Balsam 115 Benadryl [Diphenhyd* Rash, Itching Chamomile Asthma attack Codeine Vomiting, Other: See Comments Lisinopril Contraindication-Medical Surgical Acute renal failure Mold Nsaids (Non-Steroid* Other: See Comments Unable to take nsaids after having gastric bypass. Penicillins Anaphylaxis Seasonal Allergies Other: See Comments Nose runs, sneezing... Tetracycline Rash Vanilla Extract PAST MEDICAL HISTORY Diagnosis Date Acute gastritis without mention of hemorrhage Allergic rhinitis Anaphylaxis Anemia Back pain Benign essential tremor Bipolar I disorder, most recent episode (or current) unspecified sectrum Bone mass Candidiasis, intertrigo Chronic kidney disease Contraceptive management Depression Diabetes ([facility]) Diarrhea DVT, lower extremity ([facility]) 08/2014 Right leg (6) Esophagitis ESRD (end stage renal disease) ([facility]) 07/03/2022 Facial fracture due to fall ([facility]) Fatigue Fibromyalgia Fracture Fracture of shaft of fibula GERD (gastroesophageal reflux disease) HLD (hyperlipidemia) on tricor Hyperlipidemia Hypertension Hypomagnesemia Hypopotassemia IBS (irritable bowel syndrome) Insomnia Intertrigo Knee pain Morbid obesity ([facility]) 03/11/2011 Myalgia Nausea Neck pain Neuropathy Nocturnal leg cramps Non-cardiac chest pain Obesity CASSIE (obstructive sleep apnea) 07/08/2011 Other polyp of sinus Other specified anemias Personal history of unspecified urinary disorder PMH - PAST MEDICAL HISTORY OF left knee surgery x3 Pulmonary nodules Pyelonephritis, acute Restless leg Ruptured appendicitis S/P gastric bypass Snoring Type 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, not stated as uncontrolled(250.50) on oral medications and Lanuts Unspecified asthma(493.90) on inhalers Unspecified essential hypertension on medical management Upper abdominal pain Urinary frequency Vitamin D deficiency PAST SURGICAL HISTORY Procedure Laterality Date CHOLECYSTECTOMY 04/02/2011 COLONOSCOPY W/BIOPSY SINGLE/MULTIPLE 12/16/2007 DILATION & CURETTAGE DX&/THER NONOBSTETRIC Dilation & curettage EGD TRANSORAL BIOPSY SINGLE/MULTIPLE 12/16/2007 ESOPHAGOGASTRODUODENOSCOPY TRANSORAL DIAGNOSTIC age 14 EGD LAPAROSCOPIC APPENDECTOMY 05/16/2011 MIDLINE INSERTION/CONSULT 07/29/2012 Lap Paul-en-Y gastric bypass PAST SURGICAL HISTORY OF age 14 left knee surgery, for dislocation PAST SURGICAL HISTORY OF age 5 warts removed PAST SURGICAL HISTORY OF 03/02/2007 laser surgery to both eyes for diabetic retinopathy PAST SURGICAL HISTORY OF 04/26/2008 Bilateral eye surgery- vitrectomy PAST SURGICAL HISTORY OF 06/30/2008 Left eye air fluid exchange PAST SURGICAL HISTORY OF 04/09, 07/07 retinal vitrectomies PAST SURGICAL HISTORY OF Left 07/24/2022 Left forearm AVG with [address] Valenzuela STRESS TEST 200p, 2014 Normal results TUBAL LIGATION HX ablation at the same time FAMILY HISTORY Problem Relation Age of Onset Diabetes Mother from renal disease Coronary Artery Disease Mother other (Diabetic Retinaopathy) Mother Cancer Mother uterine Stroke Mother Kidney Disease Mother Thyroid Father Thyroid Sister skin cancer Kidney Disease Sister Diabetes Sister Diabetes Sister Coronary Artery Disease Brother Diabetes Brother Coronary Artery Disease Brother Colon Cancer Other none Breast Cancer Other none Social History Tobacco Use Smoking status: Former Packs/day: 2.00 Years: 6.00 Total pack years: 12.00 Types: Cigarettes Quit date: 07/31/1989 Years since quittin.1 Smokeless tobacco: Never Tobacco comments: Quit at age 24 Vaping Use Vaping Use: Never used Substance Use Topics Alcohol use: Not Currently Comment: rare Drug use: No Comment: Tried marijuana once - never used it again. Reviewed current medications, allergies, past medical history, surgical history, family history andsocial history today. REVIEW OF SYSTEMS All other reviewed and negative other than HPI. VITALS: BP 160/92 Pulse 105 LMP 09/20/2014 SpO2 96% Last 4 Encounter Wt Readings: Date: Wt: 09/09/2022 101.6 kg (224 lb) 08/21/2022 101.6 kg (224 lb) 08/11/2022 106.6 kg (235 lb) 07/31/2022 106.1 kg (234 lb) PHYSICAL EXAMINATION: General appearance: Well appearing, alert, in no acute distress, well-hydrated, well nourished. Skin: Skin color, texture, turgor normal, no suspicious rashes or lesions Lungs: Lungs clear to auscultation. No wheezing, rhonchi, rales Heart: RRR without murmur, gallop, or rubs. No ectopy Extremities: mild edema. Very tender to touch in right calf. No redness or warmth. ASSESSMENT/PLAN: 1. Inability to ambulate due to multiple joints - ICD9: 719.7, ICD10: R26.2 (primary diagnosis) - just placed on eliquis for superficial phlebitis. She came here because she cannot even get into her home. Cannot bear weight. May need placement. May need other work up to rule out occult fracture. To [place] [facility]. Er passport generated. 2. Superficial phlebitis of right leg - ICD9: 451.0, ICD10: I80.01 3. Type 2 diabetes, controlled, with neuropathy (HCC) - ICD9: 250.60, 357.2, ICD10: E11.40 4. Essential hypertension - ICD9: 401.9, ICD10: I10 Ignacio Cheatham MD documented in this encounter[facility] Discharge summary Author Quentin Kim [facility] September 07, 2022 2:51pm Note Date/Time September 07, 2022 2:04p [facility] Medical Records Department [address] [place] [address] Emergency Department Summary 09/07/22 MR#: [id number] Acct: [id number] Name: Margareth GONZALEZ Rep #:[id number] 5 : 1965 57 From: Quentin Disla PCP: Dr. Ignacio Cheatham MD Status:REG E R Location: ED HPI <BREANNA Cleary - Last Filed: 09/07/22 14:46> History of Present Illness Chief Complaint: Lower Extremity Injury Narrative Narrative: 57-year-old female presents with right lower leg pain x1 week with no fall or injury. It hurts in the anterior upper estrella area. She was taking old Percocet she had on hand which was helping but does not have anymore and today the pain was severe and worse with walking. No weakness numbness or tingling. She has chronic swelling in that leg from a prior injury but no increased swelling. No rash or skin changes. She has a history of DVT about 8 years ago attributed to her IUD. She was on Xarelto for 6 months and has not had any clots since then. Denies chest pain or shortness of breath. [facility] <BREANNA Cleary - Last Filed: 09/07/22 14:46> [facility] Medical History Fibromyalgia Neuropathy Home Medications cholecalciferol (vitamin D3) 25 mcg (1,000 unit) capsule (Vitamin D3) 5,000 unitPO DAILY 10/03/13 [History Last Taken 1 Day Ago ~11/24/16] omeprazole 20 mg capsule,delayed release 20 mg PO DAILY 08/23/14 [History Last Taken 11/25/16] glipizide 5 mg tablet 10 mg PO BIDAC 04/28/15 [History Last Taken 11/25/16] labetalol 200 mg tablet 200 mg PO DAILY 04/28/15 [History Last Taken 11/25/16] aspirin 81 mg tablet,delayed release (Aspir-Low) 81 mg PO DAILY 05/27/16 [History Last Taken 11/25/16] melatonin 5 mg capsule 5 mg PO QHS 05/27/16 [History Last Taken 1 Day Ago ~11/24/16] ferrous sulfate 325 mg (65 mg iron) tablet (Iron (ferrous sulfate)) 325 mg PO DAILY 11/25/16 [History Last Taken 11/25/16] Elavil 1 tab PO DAILY 11/12/17 [History Last Taken Unknown] pioglitazone 30 mg tablet 30 mg PO DAILY 11/12/17 [History Last Taken Unknown] vits no.130-ferrous fum 27 mg iron-folic acid 800 mcg tablet ( Vitamin) 1 ea PO DAILY 11/12/17 [History Last Taken Unknown] insulin lispro 100 unit/mL subcutaneous solution 10 unit SQ DAILY 07/04/19 [History Last Taken Unknown] hydrocodone-acetaminophen 5-325mg 5mg-325mg 1 tab PO Q6H PRN pain 3 days #12 tabs 09/07/22 [Rx Last Taken Unknown] Allergy/AdvReac Type Severity Reaction Status Date / Time Penicillins Allergy Anaphylaxis Verified 07/29/21 20:52 tetracycline [Tetracycline] Allergy Anaphylaxis Verified 07/29/21 20:52 codeine AdvReac Abd Verified 07/29/21 20:52 cramps/diarrhea diphenhydramine HCl AdvReac Upset Verified 07/29/21 20:52 [From Benadryl] Stomach hydrocodone bitartrate AdvReac Abd Verified 07/29/21 20:52 [From Vicodin] cramps/diarrhea NSAIDS (Non-Steroidal AdvReac Unknown Verified 07/29/21 20:52 Anti-Inflamma Social History Smoking Status: Former smoker ROS <BREANNA Cleary - Last Filed: 09/07/22 14:46> ROS ED ROS Narrative Constitutional: Negative for fever, chills, malaise. CVS: Negative for chest pain Respiratory: Negative for shortness of breath. Neuro: Negative for motor/sensory dysfunction. Skin: Negative for rash, abscess, or wound. Musc: Negative for trauma. EXAM <BREANNA Cleary - Last Filed: 09/07/22 14:46> Physical Exam Narrative Exam Narrative: CONST: Patient sitting in no acute distress. EYES: Normal inspection. NECK: Normal inspection. RESP: No respiratory distress, CTAB. CVS: Regular rate and rhythm, no murmur, no gallop. SKIN: Color normal, no rash, warm, dry, intact. EXTREMITIES: 1+ edema right ankle. Tender palpation over the right tibial tubercle and medial knee. Calf tenderness with no palpable cords or warmth. No deformity or crepitus. Full range of motion of hip knee and ankle, pain with knee valgus stress but no laxity. Normal sensation, 2+ DP pulse. NEURO: Oriented x4. PSYCH: Normal affect. Const Vital Signs: 09/07/22 13:46 Temperature 97.5 F L Temperature Source Oral Pulse Rate 88 Respiratory Rate 98 H Blood Pressure 162/70 H Blood Pressure Mean 100 Oxygen Delivery Method Room Air <Dr. Quentin Kim DO - Last Filed: 09/07/22 14:51> Physical Exam Const Vital Signs: 09/07/22 13:46 Temperature 97.5 F L Temperature Source Oral Pulse Rate 88 Respiratory Rate 98 H Blood Pressure 162/70 H Blood Pressure Mean 100 Oxygen Delivery Method Room Air MDM <BREANNA Cleary - Last Filed: 09/07/22 14:46> MDM MDM Narrative Medical decision making narrative: Patient has atraumatic right leg pain. She is tender over the knee and calf. She has full range of motion and is neurovascularly intact. There is no infectious signs or symptoms. X-rays negative for acute findings. With remote history of DVT and ultrasound will be ordered to be done outpatient tomorrow. They are not available here today on Thursday. She has no chest pain or shortnessof breath so I do not think she needs prophylactic anticoagulation. She was given an Hannah wrap and [place] for pain control and discharged in stable condition. Differential: Leg fracture, ligamentous or meniscal injury, arthritis, DVT, among others Attending note: Patient seen and evaluated with air conditioning unit tester. I perform my own [id number] evaluation. I agree with the plan of work-up. Nontraumatic pain distal anterior leg for the past week. Symptoms worse with walking. Denies newactivities. Further discussed states does have pain in her calf when she walks. She had a DVT 8 years ago bilaterally she was anticoagulants reported concerns secondary to IUD. No chest pains or shortness of breath. No recent travel or surgeries. No history of mobilization. States chronic right ankle swelling. Exam no swelling in the knee is tender palpation anterior tibia plateau. Knee extensor was intact. There is calf tenderness on exam. There is minimal ankle edema. Pulses are intact distally. No surrounding erythema. Treated with painmedicines. NSAIDs not given due to CKD. Obtain x-ray due to bony pain. No current ultrasound available. No chest pains or shortness of breath. Radiography Diagnostic Testing: Clinical Impression(s) from Imaging Studies Knee X-Ray 09/07/22 14:10 IMPRESSION: Degenerative arthrosis. Electronically Signed: Ryan Conn MD at 14:36 EDT Reading Location ID and State: [facility] / [place] , Service support , ED attending interpretation of right knee x-ray shows no acute fracture or dislocation. <Dr. Quentin Kim, DO - Last Filed: 09/07/22 14:51> [facility] Narrative Medical decision making narrative: Patient has atraumatic right leg pain. She is tender over the knee and calf. She has full range of motion and is neurovascularly intact. There is no infectious signs or symptoms. X-rays negative for acute findings. With remote history of DVT and ultrasound will be ordered to be done outpatient tomorrow. They are not available here today on Thursday. She has no chest pain or shortnessof breath so I do not think she needs prophylactic anticoagulation. She was given an Hannah wrap and [place] for pain control and discharged in stable condition. Differential: Leg fracture, ligamentous or meniscal injury, arthritis, DVT, among others Attending note: Patient seen and evaluated with air conditioning unit tester. I perform my own peac-np-zryu evaluation. I agree with the plan of work-up. Nontraumatic pain distal anterior leg for the past week. Symptoms worse with walking. Denies newactivities. Further discussed states does have pain in her calf when she walks. She had a DVT 8 years ago bilaterally she was anticoagulants reported concerns secondary to IUD. No chest pains or shortness of breath. No recent travel or surgeries. No history of mobilization. States chronic right ankle swelling. Exam no swelling in the knee is tender palpation anterior tibia plateau. Knee extensor was intact. There is calf tenderness on exam. There is minimal ankle edema. Pulses are intact distally. No surrounding erythema. Treated with painmedicines. NSAIDs not given due to CKD. Obtain x-ray due to bony pain. Osteoarthritic changes noted. No current ultrasound available. No chest pains or shortness of breath. We will hold on anticoagulation for CKD history. She will have outpatient ultrasound ordered for tomorrow. Radiography Diagnostic Testing: Clinical Impression(s) from Imaging Studies Knee X-Ray 09/07/22 14:10 IMPRESSION: Degenerative arthrosis. Electronically Signed: Ryan Conn MD at 14:36 EDT Reading Location ID and State: [facility] / [place] , Service support , Discharge Plan Triage Chief Complaint: Lower Extremity Injury ED Midlevel Provider: Efra Stallworth ED Provider: Quentin Kim Dx/Rx/DC Orders Clinical Impression: Right leg pain Instructions: Medicine for Pain Prescriptions: New hydrocodone-acetaminophen 5-325 mg tablet 1 tab PO Q6H PRN (Reason: pain) 3 Days Qty: 12 0RF No Action cholecalciferol (vitamin D3) [Vitamin D3] 1,000 UNIT capsule 5,000 unit PO DAILY omeprazole 20 MG capsule 20 mg PO DAILY labetalol 200 MG tablet 200 mg PO DAILY glipizide 5 MG tablet 10 mg PO BIDAC aspirin [Aspir-Low] 81 MG tablet,delayed release (DR/EC) 81 mg PO DAILY melatonin 5 MG capsule 5 mg PO QHS ferrous sulfate [Iron (ferrous sulfate)] 325 MG tablet 325 mg PO DAILY pioglitazone 30 MG tablet 30 mg PO DAILY Elavil 1 tab PO DAILY vit no.[id number] [ Vitamin] 1 EACH tablet 1 ea PO DAILY insulin lispro 100 UNIT/ML solution 10 unit SQ DAILY Other Ambulatory Orders: Venous Duplex US, Unilateral (Stat) Facility: [facility] - Location: [facility] Ordered By: Efra Stallworth Primary Care Provider: Ignacio Cheatham Referrals: Ignacio Cheatham MD [Primary Care Provider] - Activity Restrictions/Additional Instructions: Return tomorrow to have an ultrasound of your right leg to rule out a blood clot. Please follow-up with your PCP or orthopedic doctor. Disposition Disposition: Home, Self Care What to do if you have Problems For any increased pain, shortness of breath, bleeding, nausea or vomiting, chestpain, or any unexpected problems, contact your Primary Care Provider. Call [facility] ([phone]) or report to the closest Emergency Room. Call 911 if necessary. 09/07/22 1451 <Electronically signed by Quentin Disla> Cosigner Signature (if applicable): 09/07/22 1446 <Electronically signed by Efra Stallworth PA> CC: Dr. Ignacio Cheatham MD ~ Signed [facility] Work Phone: [phone]) 271-438307-05-2023 History of Present illness Narrative* Kaylin Carranza RN - 09/03/2022 10:56 AM EDT Optimal Transition Program - RNCC Collaboration Chronic Kidney Disease stage 5: Yes Last eGFR = 9 on 08/26/22 Review of patient Plan of Care: Yes -Please continue to get labs drawn monthly until we get placement for dialysis -Please check your fistula daily to feel electrical sensation. If this stops or you note bleeding or bruising to the area, please call 911 -Please go to ER if you have increased itching, hiccups, metallic taste, nausea, vomiting, increasefatigue, confusion or not making urine -continue with your specialists especially hematology and Transplant team -Discussed need for continued good diabetes, blood pressure and cholesterol control -Recommend BP goal of 130/80 or less. Please contact the office if your blood pressure is less [id number]/70 or higher than 150/90 -Recommend HgbA1c of 7 or less as CKD goal. Please continue to work on this -Follow low salt diet. (1/2 tsp salt) <2 grams -Please watch your protein intake and limit it to 3 ounces of protein per meal (70 or so grams per day) -please limit fluid intake to no more than 48-60 oz per day -Please avoid Advil, Ibuprofen(Motrin), Aleve(Naproxen), Meloxicam(Mobic), diclofenac and other pain/arthritis medications called NSAIDS. It is ok to take acetaminophen (Tylenol) for pain as needed -Please avoid contrast dye with imaging. If a provider wants to order CT or MRI with contrast, please let them know you have decreased kidney function. -Increase activity as tolerated. -limit potassium intake a bit closer. Foods high in potassium are bananas, potatoes, oranges, citrus fruits, dried fruits, brussel sprouts, mushrooms,beans, tomatoes, chocolate, spinach, prunes and avocados. -please continue sodium bicarbonate to 1300mg two times daily. Once you start dialysis they will probably change this OTP Renal Anemia: Yes Last Hgb = 9.1 Following with Hem/Onc OTP Transplant Evaluation: Yes Patient interested in Ktx?: Yes Patient with exclusion criteria: No Has an order been placed for a Tx consult?: Yes, follow up with pt and Tx center for update. Needs Knee replacement prior to transplant. OTP Renal Replacement Therapy Education: Patient referred to dialysis education: Yes Patient agrees to dialysis: Yes, Patient agrees to dialysis: Yes Patient's modality of choice: Home Hemo Plan is to initially begin IHD & then transition to home. For Hemodialysis has a Vascular Consult referral been placed: Yes Patient has functioning dialysis access: Yes Has office visit scheduled with Vascular on 09/09/22 to have Lt forearm AVG assessed & cleared for use. Spoke with pt this morning. We discussed importance of keeping this appt. data entry coordinator contacted: yes: Has been placed @ [facility] in [place] Remote Hepatitis panel obtained: yes, 08/26/22 Chest x-ray obtained: yes: 08/26/22 Med reconciliation completed: No Medication prior authorizations: Not applicable Reviewed symptoms of uremia - none other than chronic fatigue, nausea & some wt loss. States nochanges. Supervisor plan for next outreach: Will follow up prn. Kaylin Carranza RN September 03, 2022 11:00 AM documented in this encounter[facility]06-28-2023 Miscellaneous Notes* Telephone Encounter - Kaylin Carranza RN - 08/27/2022 10:09 AM EDTSummary: AVF approval for use Spoke with Arnold this morning. She states that other than an ear ache & some fatigue she is feeling well. States that she didn't know that she had an appt scheduled with Vascular yesterday. Statesthat she will call them today to reschedule. Discussed importance of having AVF assessed & cleared for use, understanding verbalized. Kaylin Carranza RN * Telephone Encounter - Kaylin Carranza RN - 08/27/2022 10:09 AM EDT ----- Message from Goldy Hunter DO sent at 08/27/2022 9:18 AM EDT ----- Regarding: RE: AVF Can you please give her a call to check on her Kaylin? I filled out her FMLA paperwork again yesterday. ----- Message ----- From: Kaylin Carranza RN Sent: 08/27/2022 8:33 AM EDT To: Goldy Hunter DO, Fab Cochran APRN.BENEFITS ADMINISTRATOR Subject: AVF I saw you both made a billing encounter for Arnold yesterday. Sonia Tavares set up placement for her @ a dialysis unit in [place], close to her home but has notyet informed Arnold because she was waiting for Vascular to confirm the AVF is ready for use. I don'tsee any notes from her Vascular appt yesterday. I'm not sure she kept her appt. Do either of you know her status with this? Kaylin documented in this encounter[facility]06-22-2023 History of Present illness Narrative* Jenni Cates RT(R) - 08/21/2022 11:30 AM EDT Radiology Service Progress Note PATIENT NAME: Margareth Gonzalez DATE OF SERVICE: August 21, 2022 TIME: 11:15 AM PATIENT IDENTITY VERIFICATION COMPLETED USING TWO (2) IDENTIFIERS: Name and Date of confirmedby patient verbally. FALL SCREENING: Has the patient had 2 falls in the last year or 1 fall with injury or currently using an Ambulatory Assistive Device (Walker, Cane, Wheelchair, Crutches, etc.)? No PATIENT GENDER DATA: Female. status: : No status: NO. PATIENT RELEVANT IMPLANT DATA REVIEWED: Not Applicable RADIOLOGY DEPARTMENT: General X-ray: Exam(s) Completed: Chest X-Ray PA ONLY PER ORDERING PROVIDER PERIPHERAL IV DATA: Not applicable SIGNED BY: RT Yojana(R) August 21, 2022 11:15 AM documented in this encounterFisher[facility]06-22-2023 Nurse Note* Veronica Atkinson LPN - 08/21/2022 11:04 AM EDT Retacrit injection deferred. Pt did not meet treatment parameters. Hgb 10.2 Veronica Atkinson LPN documented in this encounterFisher[facility]06-21-2023 Miscellaneous Notes* Telephone Encounter - Kaylin Carranza RN - 08/20/2022 3:18 PM EDT Sonia Carranza RN; Efe Villavicencio Sounds good! Efe spoke with her. We are going to get a referral sent through [facility] admissions [facility]. ThanksSonia * Telephone Encounter - Kaylin Carranza RN - 08/20/2022 2:51 PM EDT Pt returned my call. Informed her of need to have Hep B panel & cxr completed. States that she plans to have other labs drawn tomorrow as well so she will do both then. [facility]ouraged to [facility] to schedule cxr but pt states she can just show up, I don't need and appt there. Requested that she return call to Sonia Tavares for dialysis placement as well. Pt states she willdo so when we hang up. Kaylin Carranza RN * Telephone Encounter - Kaylin Carranza RN - 08/20/2022 2:12 PM EDT CKD SPECIALIZED COORDINATION QUICK NOTE Provider Action/FYI Telephone call Patient identified by name and date : No Telephone call placed to pt. Left msg identifying myself & the reason for my call (Dialysis placement & need to have cxr & Hep B panel drawn). Requested a return call @ her earliest convenience. In case she does not return my call, informed Fab Cochran CNP whom pt has an appt with tomorrow of these issues that addressed. Kaylin Carranza RN documented in this encounter[facility]06-06-2023 History of Present illness Narrative* Kaylin Carranza RN - 08/05/2022 11:54 AM EDT Patient Identified by name and : Yes Spoke to patient OTP Renal Anemia HGB <10.0 g/dl: Yes, follow decision tree below. History of Cancer, DVT, or Stroke: No, Anemia referral: Yes - following with [facility]/Onc - [place]. OTP TRANSPLANT EVALUATION Patient interested in Ktx?: Yes Patient with exclusion criteria: Has an order been placed for a Tx consult?: Yes, follow up with pt and Tx center for update. Patient referred to dialysis education: Yes Dialysis/Kidney Care: 365 education completed: Patient agrees to dialysis: Yes, Patient agrees to dialysis: Yes Is the patient a poor candidate for home therapies: No Is the patient a home hemo candidate: Yes Is the patient a PD candidate: Not applicable Has a Vascular Consult referral been placed: Yes Patient has functioning dialysis access: No Discussed with Provider timing of initiation: Yes data entry coordinator contacted: Yes data entry coordinator initiated placement process: No Remote Hepatitis panel obtained: No - ordered 08/05/22 Hepatitis remote panel results: not yet drawn Chest X-ray obtained: no, not yet completed RNCC to arrange for appropriate monitoring: Monthly RNCC to verify that patient is assigned to [facility]: Yes, Fab Cochran CNP. Consult to CKD [facility] Clinic: Not applicable Chronic Kidney Disease stage 4: No Provider follow-up every 3 months: Not Applicable Chronic Kidney Disease stage 5: Yes Provider follow-up: Every 4-6 weeks: Yes Blood work every 2-4 weeks based at discretion of the provider: Yes Med reconciliation completed: Yes Refills to be sent to provider as needed: Not applicable RNCC to survey patient for the following: Referral to nutritional services: No Weight Management: WEIGHT GAIN/WEIGHT LOSS: weight stable BMI: 35 Pharmacy assistance: No Medication prior authorizations: Not applicable Social Work: No Exercise/Stress Reduction Programs: Not applicable Smoke Cessation: Not applicable Vaccination status: completed Referral placement: Yes Supervisor plan for next outreach: Will follow up prn Kaylin Carranza RN August 05, 2022 * Kaylin Carranza RN - 08/05/2022 9:34 AM EDT CKD SPECIALIZED COORDINATION FOLLOW-UP NOTE Provider Action/FYI Telephone call Patient identified by name and date of . YES Spoke to patient Summary: Post acute care discharge follow up call. Spoke with pt who confirms that she has new medications that were ordered @ discharge (Atarax 50 mg, Bactrim DS, Cephalexin 500 mg) as well as all her chronic medications. She has follow up appointments already scheduled as well. We discussed protecting herLt arm with the AVF & not allowing any IV's, b/p checks or blood draws from that extremity. We also discussed strategies to maintain kidney function. She is aware the the symptoms or uremia & knows that she should report to the ED should she have these symptoms or any bleeding from AVF site. Concerns: None at this time. Supervisor plan for next outreach: Will follow up prn. Signature Kaylin Carranza RN August 05, 2022 documented in this encounter[facility]06-06-2023 Miscellaneous Notes* Telephone Encounter - Kaylin Carranza RN - 08/05/2022 10:41 AM EDT Informed pt of below, understanding verbalized. States she will contact her employer & obtain the necessary forms to be be completed or updated. She is also aware that someone will contact her in regards to dialysis placement. Kaylin Carranza RN * Telephone Encounter - Kaylin Carranza RN - 08/05/2022 10:41 AM EDT Images from the original note were not included. Goldy Hunter, DO Kaylin Carranza RN I already filled out and faxed the paperwork a week or two ago. If she needs me to make changes, I can do that. I just message the [facility] when patients need placement for dialysis. They take care of everything. Perhaps you can send them a message to make them aware but they are good at completing the paperwork in a couple days for insurance. Previous Messages ----- Message ----- From: Kaylin Carranza RN Sent: 08/05/2022 9:57 AM EDT To: Goldy Hunter DO Subject: Dialysis placement Hi Dr Hunter Spoke with Arnold this morning to f/u post acute care. Just a couple of questions for you. She is asking to have consecutive time off work under her FMLA & short term disability. If she's off work (she was in acute care) & goes back & then is off work again to start dialysis then she will lose 2 wks pay. Can you fill forms out to allow this? Can we place orders for dialysis placement? I know her AVF is not yet ready to use. Dr Jackson told her it won't be ready for 3-5 wks. She is wanting to get set up & scheduled so that she knows where she is going to go. She hopes to be able to get in to [facility] in [place]. Please let me know. Thanks, Kaylin. 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 Advised to notify PCP for recurring, new/worsening symptoms. Verbalized understanding. Transitions of Care Critical Issues: NEW BASELINE FOR PATIENT: patient will dc on Kelfex and Bactrim DS (daily) for 14 more days. Outpatient follow up. START taking these medications hydrOXYzine HCl (ATARAX) 50 mg Take 50 mg by mouth every 6 hours as needed for itching/rash. sulfamethoxazole-trimethoprim (BACTRIM DS) 1 tablet Take 1 tablet by mouth once daily. cephALEXin (KEFLEX) 500 mg Take 500 mg by mouth three times daily. Future Appointments: PCP 08/11/2022 SUMMARY: Discharge Network Status: In-Network Discharge Pt discharged from [facility] on 08/04/2022. Admitted for: surgical site infection left arm Contact made with patient: Yes Hi my name is Chrissy Cheng RN and I am calling from the [facility] on behalf of your PCP, Ignacio Cheatham MD I understand you were recently in the hospital so I am calling to check in with you to ensure you are feeling well now that you're home. May I ask you a few questions related to your hospital stay and well-being? Yes Contact with patient post discharge, spoke to patient. Patient identified by name and . Do you feel your health is BETTER, WORSE, or the SAME since leaving the hospital? Better ACTION TAKEN: Patient indicated symptoms are better or same, no action required. Continue outreach. MEDICATIONS: Many patients have questions or concerns about their medications once they are home. Do you have any questions about taking your medications or which medication you should be on? No Do you need any medication refills at this time, including any of the medications you might take only when needed? No ACTION TAKEN: No action required For RNs or Pharmacy completing outreach ONLY, was a medication review completed? Yes SOCIAL: We would like to make sure you have what you need so that your basics needs are met - including your personal safety, food, housing and medications. Would you like to speak with a social work long line teamster to help give you support for any of these needs? No It can be normal to feel anxious or down during a time like this. Would you like to talk to a mental health professional about how you have been feeling? No ACTION TAKEN: No action taken DISCHARGE INTRUCTIONS: Your discharge instructions / After Visit Summary (AVS) are important in guiding you through the recovery process. Do you have any questions related to your discharge instructions? No Do you have all the necessary equipment and supplies at home? Yes ACTION TAKEN: No action required I would like to help you schedule a hospital follow-up virtual or telephone visit with your PCP. This is a great way for you to connect with your provider to ensure you have safely transitioned home.If you are agreeable, I will send your request to a senior power scheduler who will contact and assist you with that appointment. This will give you an opportunity to ask any questions or address any concerns youmay have with your PCP. Inform the patient that if they have any questions or concerns prior to that appointment, to call their PCP's office right away. ACTION TAKEN: No action required, patient already has an appointment scheduled. Your doctor would like us to remind you of the recommendations regarding the coronavirus (Covid19) outbreak: Avoid public places as much as possible. Avoid close contact (within 6 feet) with others you don t live with, especially if they are sick. Stay home if you are sick. Wash your hands regularly for at least 20 seconds with soap and water. Wear a cloth mask in public places to help reduce community spread. Do not go to your Doctor s office unless instructed to do so. For any non- emergency symptoms, call your Doctor s office to get instructions on how to manage (we might recommend a telephone or virtualvisit). For emergency symptoms, proceed to Emergency Department as usual but inform them of cough and fever symptoms MATTEO if present (or call on the way if possible). MONIKA Education Ordered -: No Hazel BRAUN., drug enforcement agent Alliance Manager [phone] documented in this encounter[facility] History of Present illness Narrative* Lauren Bello [facility] - 08/05/2022 7:44 AM EDT TRANSITION CARE MANAGEMENT (TCM) PHARMACY CONTACT Provider Action/FYI: Unable to reach patient after unsuccessful outreach attempt. Left voicemail for patient including call back number to TCM pharmacist. TCM medication reconciliation incomplete at this time Patient unable to be reached after unsuccessful outreach attempt(s). No further attempts to contactpatient will be made. SUMMARY: -Pt discharged from [facility] on 08/04/22. -Medication review not done History of Present Illness: The following content has been copied and pasted from patient's discharge summary. If discharge summary unavailable, After Visit Summary or last pertinent inpatient notes are copied and pasted. REASON I WAS IN THE HOSPITAL: left arm infection after AV fistula creation SUMMARY OF WHAT HAPPENED WHILE I WAS IN THE HOSPITAL: HPI: Ms. Gonzalez is a 57 y/o F with a PMH of CKD Stage V s/p AV grating, HTN, HLD, GERD presenting with concern for a left forearm infection after AV fistula creation on Thursday, 07/24. She reportsthat her arm became more erythematous and edematous after a few days, and has continued to progress. She also reports itchiness that has continued to progress. She otherwise denies systemic signs/symptoms. Given concern for potential infection, she presented to the ER for evaluation. VS unremarkable on arrival, with exam demonstrating erythema/edema/induration between the two incisions within thearea of graft construction. CMP with K 5.3, CO2 19, BUN 43, Cr 4.99, VBG 7.26/lactate 1. CBC unremarkable with baseline anemia. She was administered IV Rocephin and admited to Medicine. Plan to add vancomycin, consult ID/Vascular Surgery/Nephro. Dr. Jackson was consulted in ER who was agreeable to see patient in consult. Patient is felling better and will DC home on Bactrim DS daily for 14 days and Keflex 500 mg three times daily for 14 days. Outpatient follow up. OTHER PROBLEMS/DIAGNOSIS: Principal Problem: Surgical site infection Active Problems: Anemia, unspecified Bipolar disorder, unspecified ([facility]) Essential hypertension Type 2 diabetes mellitus with stage 4 chronic kidney disease, without long-term current use of insulin ([facility]) GERD (gastroesophageal reflux disease) Type 2 diabetes, controlled, with neuropathy ([facility]) ESRD (end stage renal disease) ([facility]) Resolved Problems: Acute gastritis OPERATIONS PERFORMED WHILE IN THE HOSPITAL: None IMPORTANT TEST/PROCEDURES: No procedures performed TEST RESULTS NOT AVAILABLE AT THIS TIME: No pending results Discharge Disposition Discharge Disposition: Home With Self Care Medication Reconciliation: Legend: Stopped, New, Changed, Added to list Medication List Medication Directions Comments Action/Plan amitriptyline (ELAVIL) 100 mg tablet Take 1 tablet by mouth daily at bedtime. Confirmed fills on medication dispense history. aspirin, enteric coated (ADULT LOW DOSE ASPIRIN) 81 mg EC tablet Take 1 tablet by mouth once daily. OTC atorvastatin (LIPITOR) 40 mg tablet Take 1 tablet by mouth daily at bedtime. For cholesterol. Confirmed fills on medication dispense history. baclofen (LIORESAL) 10 mg tablet Take 1 tablet by mouth three times daily as needed. There is no medication dispense history for this medication. calcitriol (ROCALTROL) 0.25 mcg capsule Take 2 capsules by mouth once daily. There is no medication dispense history for this medication. cephALEXin (KEFLEX) 500 mg capsule Take 1 capsule by mouth three times daily for 14 days. Confirmed fills on medication dispense history. [facility] [address] [place] [id number] [address] [facility] [phone] [id number] cephALEXin hydrOXYzine HCl sulfamethoxazole-trimethoprim cholecalciferol (VITAMIN D3) 5,000 unit tab Take 5,000 Units by mouth twice daily. OTC famotidine (PEPCID) 20 mg tablet Take 1 tablet by mouth once daily as needed. OTC flash glucose scanning reader (FREESTYLE FESTUS 2 READER) Use to check glucose 3 times daily and continuously. 1 per year. flash glucose sensor (FREESTYLE FESTUS 2 SENSOR) kit Use to check glucose 3 times daily and continuously. Change every 14 days. 6 per 90 day supply. glipiZIDE (GLUCOTROL XL) 5 mg 24 hr tablet Take 2 tablets by mouth once daily. Confirmed fills on medication dispense history. hydrOXYzine HCl (ATARAX) 50 mg tablet Take 1 tablet by mouth every 6 hours as needed for itching/rash. There is no medication dispense history for this medication. labetalol (TRANDATE) 100 mg tablet Take 1 tablet by mouth twice daily. Confirmed fills on medication dispense history. omeprazole (PRILOSEC) 20 mg capsule Take 1 capsule by mouth once daily. Confirmed fills on medication dispense history. ondansetron orally disintegrating (ZOFRAN ODT) 4 mg disintegrating tablet Take 1 tablet by mouth every 8 hours as needed for nausea/vomiting. There is no medication dispense history for this medication. oxyCODONE-acetaminophen (PERCOCET) 5-325 mg tablet Take 1 tablet by mouth every 6 hours as needed for pain. Confirmed fills on medication dispense history. pioglitazone (ACTOS) 45 mg tablet Take 1 tablet by mouth once daily. There is no medication dispense history for this medication. Aixdmorl-Bg-Cip-Fe-FA ( VITAMIN) ORAL Tab Take 1 tablet by mouth once daily. OTC sertraline (ZOLOFT) 50 mg tablet Take 1 tablet by mouth once daily. Confirmed fills on medication dispense history. sodium bicarbonate 650 mg tablet Take 2 tablets by mouth twice daily. There is no medication dispense history for this medication. sulfamethoxazole-trimethoprim (BACTRIM DS) 800-160 mg per tablet Take 1 tablet by mouth once daily for 14 days. There is no medication dispense history for this medication. TRULICITY 1.5 mg/0.5 mL pen injector INJECT 1.5 MG UNDER THE SKIN ONCE A WEEK Confirmed fills on medication dispense history. Preferred pharmacy: [address] [id number] [address] [facility] [phone] [place] [id number] [facility] [id number] [place] [id number] Estimated Creatinine Clearance: 16.5 mL/min (A) (based on SCr of 4.79 mg/dL (H)). Estimated Glomerular Filtration Rate (mL/min/1.73m ) Date Value 08/04/2022 10 (L) eGFR- (no units) Date Value 03/27/2021 20 Additional follow up: Next 5 Appointments Date and Time Provider Department Dept Phone 08/08/2022 2:15 PM [facility] [phone] 08/08/2022 2:45 PM Injection Iam [facility] IAM [facility] [phone] 08/11/2022 8:40 AM Ignacio Cheatham [facility] WS [phone] 08/22/2022 2:15 PM [facility] MOB [facility] [phone] 08/22/2022 2:45 PM Injection [facility] [phone] Interventions Made: None Pharmacist Recommendations Made None Care Coordination: None at this time Time spent on patient: 15-30 minutes Tati HernandezD, [facility] Transitional Care Management August 05, 2022 2:53 PM documented in this encounterFisher[facility]06-01-2023 Miscellaneous Notes* Telephone Encounter - Marie Pete - 07/31/2022 3:08 PM EDT Spoke with patient, she is currently at [facility] waiting to be seen. She did not want to go to [place] tomorrow, so she's going to stay at the ED and is scheduled to see [facility] on Thursday, 08/05. * Telephone Encounter - Marie Pete - 07/31/2022 10:39 AM EDT Patient left a message stating her arm is swollen and discolored and that was advised to be seen sooner by express care. Left patient a message to call us back to schedule an appointment today with Katrin or tomorrow withMarilia. documented in this encounter[facility]06-01-2023 History of Past illness Narrative* Problem Noted Date Diagnosed Date Resolved Date Surgical site infection 07/31/202203/02 CKD (chronic kidney disease) Stage 4, GFR 15-29 ml/min 10/23/2017 03/13/2023 Other chronic pain 04/16/2017 9 Other adjustment reaction wi th predominant disturbance of other emotions 05/02/2011 04/20/2020 Eating disorder NEC 05/02/2011 04/20/19 21 Morbid obesity 03/11/2011 12/16/2018 Biliary colic 03/09/2011 04/20/2020 Xerosis of skin 02/13/2011 04/20/2020 Tendonitis 02/26/2010 04/20/2020 ACL tear 11/26/2009 04/20/2020 Knee pain 11/26/2009 04/20/2020 Generalized pain 10/01/2009 02/21/2019 Chronic pain 09/24/2009 02/21/2019 Elbow joint pain 09/24/2009 04/20/2020 Ulcer of heel and midfoot 02/08/2009 Pain in limb 06/29/2008 02/21/2019 Dermatophytosis of nail 06/29/200804/02 Corns and callosities 06/29/20082017 Essential hypertension, benign 03/27/2008 03/16/2015 DM w/o complication type II, uncontrolled 03/09/2008 12/07/2014 Overview: A1c 15.7 as of 2005 per old labs Down to 7.2 as of 2009 -- -CHECKING TWICE DAILY Routine gynecological examination 03/09/2008 04/16/2017 DIABETIC FOOT ULCER 03/09/2008 04/16/19 18 Overview: [facility] Acute gastritis 12/16/2007 08/04/2022 Overview: EGD with minimal gastritis, negative H Pylori 12/07 documented as of this encounter (statuses as of 04/04/2023) [facility] History of Past illness Narrative* Problem Noted Date Diagnosed Date Resolved Date Surgical site infection 07/31/202203/02 CKD (chronic kidney disease) Stage 4, GFR 15-29 ml/min 10/23/2017 03/13/2023 Other chronic pain 04/16/2017 9 Other adjustment reaction wi th predominant disturbance of other emotions 05/02/2011 04/20/2020 Eating disorder NEC 05/02/2011 04/20/19 21 Morbid obesity 03/11/2011 12/16/2018 Biliary colic 03/09/2011 04/20/2020 Xerosis of skin 02/13/2011 04/20/2020 Tendonitis 02/26/2010 04/20/2020 ACL tear 11/26/2009 04/20/2020 Knee pain 11/26/2009 04/20/2020 Generalized pain 10/01/2009 02/21/2019 Chronic pain 09/24/2009 02/21/2019 Elbow joint pain 09/24/2009 04/20/2020 Ulcer of heel and midfoot 02/08/2009 Pain in limb 06/29/2008 02/21/2019 Dermatophytosis of nail 06/29/200804/02 Corns and callosities 06/29/20082017 Essential hypertension, benign 03/27/2008 03/16/2015 DM w/o complication type II, uncontrolled 03/09/2008 12/07/2014 Overview: A1c 15.7 as of 2005 per old labs Down to 7.2 as of 2009 -- -CHECKING TWICE DAILY Routine gynecological examination 03/09/2008 04/16/2017 DIABETIC FOOT ULCER 03/09/2008 04/16/19 18 Overview: [facility] Acute gastritis 12/16/2007 08/04/2022 Overview: EGD with minimal gastritis, negative H Pylori 12/07 documented as of this encounter (statuses as of 04/06/2023) [facility] History of Past illness Narrative* Problem Noted Date Diagnosed Date Resolved Date Surgical site infection 07/31/202203/02 CKD (chronic kidney disease) Stage 4, GFR 15-29 ml/min 10/23/2017 03/13/2023 Other chronic pain 04/16/2017 9 Other adjustment reaction wi th predominant disturbance of other emotions 05/02/2011 04/20/2020 Eating disorder NEC 05/02/2011 04/20/19 21 Morbid obesity 03/11/2011 12/16/2018 Biliary colic 03/09/2011 04/20/2020 Xerosis of skin 02/13/2011 04/20/2020 Tendonitis 02/26/2010 04/20/2020 ACL tear 11/26/2009 04/20/2020 Knee pain 11/26/2009 04/20/2020 Generalized pain 10/01/2009 02/21/2019 Chronic pain 09/24/2009 02/21/2019 Elbow joint pain 09/24/2009 04/20/2020 Ulcer of heel and midfoot 02/08/2009 Pain in limb 06/29/2008 02/21/2019 Dermatophytosis of nail 06/29/200804/02 Corns and callosities 06/29/20082017 Essential hypertension, benign 03/27/2008 03/16/2015 DM w/o complication type II, uncontrolled 03/09/2008 12/07/2014 Overview: A1c 15.7 as of 2005 per old labs Down to 7.2 as of 2009 -- -CHECKING TWICE DAILY Routine gynecological examination 03/09/2008 04/16/2017 DIABETIC FOOT ULCER 03/09/2008 04/16/19 18 Overview: [facility]s with [facility], Dr. Santiago Montero Acute gastritis 12/16/2007 08/04/2022 Overview: EGD with minimal gastritis, negative H Pylori 12/07 documented as of this encounter (statuses as of 04/14/2023) [facility] of Past illness Narrative* Problem Noted Date Diagnosed Date Resolved Date Surgical site infection 07/31/202203/02 CKD (chronic kidney disease) Stage 4, GFR 15-29 ml/min 10/23/2017 03/13/2023 Other chronic pain 04/16/2017 9 Other adjustment reaction wi th predominant disturbance of other emotions 05/02/2011 04/20/2020 Eating disorder NEC 05/02/2011 04/20/19 21 Morbid obesity 03/11/2011 12/16/2018 Biliary colic 03/09/2011 04/20/2020 Xerosis of skin 02/13/2011 04/20/2020 Tendonitis 02/26/2010 04/20/2020 ACL tear 11/26/2009 04/20/2020 Knee pain 11/26/2009 04/20/2020 Generalized pain 10/01/2009 02/21/2019 Chronic pain 09/24/2009 02/21/2019 Elbow joint pain 09/24/2009 04/20/2020 Ulcer of heel and midfoot 02/08/2009 Pain in limb 06/29/2008 02/21/2019 Dermatophytosis of nail 06/29/200804/02 Corns and callosities 06/29/20082017 Essential hypertension, benign 03/27/2008 03/16/2015 DM w/o complication type II, uncontrolled 03/09/2008 12/07/2014 Overview: A1c 15.7 as of 2005 per old labs Down to 7.2 as of 2009 -- -CHECKING TWICE DAILY Routine gynecological examination 03/09/2008 04/16/2017 DIABETIC FOOT ULCER 03/09/2008 04/16/19 18 Overview: Follows with [facility], [facility], Dr. Henderson Acute gastritis 12/16/2007 08/04/2022 Overview: EGD with minimal gastritis, negative H Pylori 12/07 documented as of this encounter (statuses as of 05/01/2023) [facility] of Past illness Narrative* Problem Noted Date Diagnosed Date Resolved Date Surgical site infection 07/31/202203/02 CKD (chronic kidney disease) Stage 4, GFR 15-29 ml/min 10/23/2017 03/13/2023 Other chronic pain 04/16/2017 9 Other adjustment reaction wi th predominant disturbance of other emotions 05/02/2011 04/20/2020 Eating disorder NEC 05/02/2011 04/20/19 21 Morbid obesity 03/11/2011 12/16/2018 Biliary colic 03/09/2011 04/20/2020 Xerosis of skin 02/13/2011 04/20/2020 Tendonitis 02/26/2010 04/20/2020 ACL tear 11/26/2009 04/20/2020 Knee pain 11/26/2009 04/20/2020 Generalized pain 10/01/2009 02/21/2019 Chronic pain 09/24/2009 02/21/2019 Elbow joint pain 09/24/2009 04/20/2020 Ulcer of heel and midfoot 02/08/2009 Pain in limb 06/29/2008 02/21/2019 Dermatophytosis of nail 06/29/200804/02 Corns and callosities 06/29/20082017 Essential hypertension, benign 03/27/2008 03/16/2015 DM w/o complication type II, uncontrolled 03/09/2008 12/07/2014 Overview: A1c 15.7 as of 2005 per old labs Down to 7.2 as of 2009 -- -CHECKING TWICE DAILY Routine gynecological examination 03/09/2008 04/16/2017 DIABETIC FOOT ULCER 03/09/2008 04/16/19 18 Overview: Follows with [facility], [facility], Dr. Henderson Acute gastritis 12/16/2007 08/04/2022 Overview: EGD with minimal gastritis, negative H Pylori 12/07 documented as of this encounter (statuses as of 05/17/2023) [facility] of Past illness Narrative* Problem Noted Date Diagnosed Date Resolved Date Surgical site infection 07/31/202203/02 CKD (chronic kidney disease) Stage 4, GFR 15-29 ml/min 10/23/2017 03/13/2023 Other chronic pain 04/16/2017 9 Other adjustment reaction wi th predominant disturbance of other emotions 05/02/2011 04/20/2020 Eating disorder NEC 05/02/2011 04/20/19 21 Morbid obesity 03/11/2011 12/16/2018 Biliary colic 03/09/2011 04/20/2020 Xerosis of skin 02/13/2011 04/20/2020 Tendonitis 02/26/2010 04/20/2020 ACL tear 11/26/2009 04/20/2020 Knee pain 11/26/2009 04/20/2020 Generalized pain 10/01/2009 02/21/2019 Chronic pain 09/24/2009 02/21/2019 Elbow joint pain 09/24/2009 04/20/2020 Ulcer of heel and midfoot 02/08/2009 Pain in limb 06/29/2008 02/21/2019 Dermatophytosis of nail 06/29/200804/02 Corns and callosities 06/29/20082017 Essential hypertension, benign 03/27/2008 03/16/2015 DM w/o complication type II, uncontrolled 03/09/2008 12/07/2014 Overview: A1c 15.7 as of 2005 per old labs Down to 7.2 as of 2009 -- -CHECKING TWICE DAILY Routine gynecological examination 03/09/2008 04/16/2017 DIABETIC FOOT ULCER 03/09/2008 04/16/19 18 Overview: Follows with [facility], Dr. Santiago Montero Acute gastritis 12/16/2007 08/04/2022 Overview: EGD with minimal gastritis, negative H Pylori 12/07 documented as of this encounter (statuses as of 05/18/2023) [facility] of Past illness Narrative* Problem Noted Date Diagnosed Date Resolved Date Surgical site infection 07/31/202203/02 CKD (chronic kidney disease) Stage 4, GFR 15-29 ml/min 10/23/2017 03/13/2023 Other chronic pain 04/16/2017 9 Other adjustment reaction wi th predominant disturbance of other emotions 05/02/2011 04/20/2020 Eating disorder NEC 05/02/2011 04/20/19 21 Morbid obesity 03/11/2011 12/16/2018 Biliary colic 03/09/2011 04/20/2020 Xerosis of skin 02/13/2011 04/20/2020 Tendonitis 02/26/2010 04/20/2020 ACL tear 11/26/2009 04/20/2020 Knee pain 11/26/2009 04/20/2020 Generalized pain 10/01/2009 02/21/2019 Chronic pain 09/24/2009 02/21/2019 Elbow joint pain 09/24/2009 04/20/2020 Ulcer of heel and midfoot 02/08/2009 Pain in limb 06/29/2008 02/21/2019 Dermatophytosis of nail 06/29/200804/02 Corns and callosities 06/29/20082017 Essential hypertension, benign 03/27/2008 03/16/2015 DM w/o complication type II, uncontrolled 03/09/2008 12/07/2014 Overview: A1c 15.7 as of 2005 per old labs Down to 7.2 as of 2009 -- -CHECKING TWICE DAILY Routine gynecological examination 03/09/2008 04/16/2017 DIABETIC FOOT ULCER 03/09/2008 04/16/19 18 Overview: [facility] Henderson Acute gastritis 12/16/2007 08/04/2022 Overview: EGD with minimal gastritis, negative H Pylori 12/07 documented as of this encounter (statuses as of 05/21/2023) [facility] of Past illness Narrative* Problem Noted Date Diagnosed Date Resolved Date Surgical site infection 07/31/202203/02 CKD (chronic kidney disease) Stage 4, GFR 15-29 ml/min 10/23/2017 03/13/2023 Other chronic pain 04/16/2017 9 Other adjustment reaction wi th predominant disturbance of other emotions 05/02/2011 04/20/2020 Eating disorder NEC 05/02/2011 04/20/19 21 Morbid obesity 03/11/2011 12/16/2018 Biliary colic 03/09/2011 04/20/2020 Xerosis of skin 02/13/2011 04/20/2020 Tendonitis 02/26/2010 04/20/2020 ACL tear 11/26/2009 04/20/2020 Knee pain 11/26/2009 04/20/2020 Generalized pain 10/01/2009 02/21/2019 Chronic pain 09/24/2009 02/21/2019 Elbow joint pain 09/24/2009 04/20/2020 Ulcer of heel and midfoot 02/08/2009 Pain in limb 06/29/2008 02/21/2019 Dermatophytosis of nail 06/29/200804/02 Corns and callosities 06/29/20082017 Essential hypertension, benign 03/27/2008 03/16/2015 DM w/o complication type II, uncontrolled 03/09/2008 12/07/2014 Overview: A1c 15.7 as of 2005 per old labs Down to 7.2 as of 2009 -- -CHECKING TWICE DAILY Routine gynecological examination 03/09/2008 04/16/2017 DIABETIC FOOT ULCER 03/09/2008 04/16/19 18 Overview: [facility], Dr. Santiago Montero Acute gastritis 12/16/2007 08/04/2022 Overview: EGD with minimal gastritis, negative H Pylori 12/07 documented as of this encounter (statuses as of 06/11/2023) [facility] History of Present illness Narrative* Sha Ray APRN.BENEFITS ADMINISTRATOR - 07/31/2022 10:11 AM EDT Nontoxic-appearing female presents urgent care chief complaint redness swelling itching at the surgical site. Had graft placed 07/24/2022. Presents today for evaluation. No new pain. States swelling may be slightly reduced since yesterday. Most prominent symptom today is redness and itching. On examination of site moderate amount of swelling redness noted. No drainage. However with patient's recent surgical procedure I recommended patient contact surgeon's office for reevaluation care. Patient verbalized understand agrees with plan of care. Sha Ray APRN.BENEFITS ADMINISTRATOR [facility] NoteHNO ID: [id number] Author: Audra Bell RN Service: ? Author Type: Registered Nurse Type: Nursing Progress Note Filed: 07/24/2022 12:03 PM Note Text: 1200 pt given written and verbal dc instructions. 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 and patient Staffing Anesthesiologist: Rashid Grace MD DROP HAMMER SETTER UP: Jose D Camargo APRN.DROP HAMMER SETTER UP Performed by: CHARLA Indications and Patient Condition Indications for airway management: anesthesia Preoxygenated: yes anesthesia circuit Patient position: sniffing Method: asleep Difficult Mask: No Airway Accessory: oral airway (100 mm) Final Airway Details Final airway type: endotracheal airway Final Endotracheal Airway: ETT Cuffed: yes Successful intubation technique: direct laryngoscopy Devices used: intubating stylet Endotracheal tube insertion site: oral Blade: Norris Blade size: #4 ETT size (mm): 7.5 Measured from: lips Measurement (cm): 21 Placement verified by: chest auscultation and capnometry Cormack-Lehane Classification: grade I - full view of glottis Number of attempts at approach: 1 Airway not difficult Comments Teeth and lips intact post intubation. SIGNATURE: Jose D Camargo APRN.DROP HAMMER SETTER UP PATIENT NAME: Margareth Gonzalez DATE: July 24, 2022 TIME: 8:41 AM CSN: [id number] History and physical note* Jess Oconnor APRN.BENEFITS ADMINISTRATOR - 06/30/2022 3:39 PM EDT Images from the original note were not included. HISTORY AND PHYSICAL EXAMINATION SERVICE DATE: 06/30/2022 SERVICE TIME: 1:50 PM PRIMARY CARE PHYSICIAN: Ignacio Cheatham MD REASON FOR VISIT: Margareth Gonzalez is a 57 year old female who is scheduled for Procedure(s) with comments: CREATION FISTULA ARTERIOVENOUS EXTREMITY UPPER (Left) - NO RANGE EXAMINER NEEDED at the request of Dr. Jonathan Valenzuela for consultation. My final recommendation will be communicated back to the requesting physician by way of shared medical record or letter. Subjective The patient has the following: ACTIVE PROBLEM LIST Acute Gastritis Obesity, Unspecified Anemia, Unspecified Background Diabetic Retinopathy (Hcc) Asthma Calculus of Gallbladder Without Mention of Cholecystitis Or Obstruction Bipolar Disorder, Unspecified (Hcc) Essential Hypertension Type 2 Diabetes Mellitus With Stage 4 Chronic Kidney Disease, Without Long-Term Current Use of Insulin (Hcc) Iron Deficiency Anemia, Unspecified Edema Fibromyalgia Neuropathy Vitamin D Deficiency Microalbuminuria Gerd (Gastroesophageal Reflux Disease) Proliferative Diabetic Retinopathy (Hcc) Pseudophakia Cassie (Obstructive Sleep Apnea) Other and Unspecified Postsurgical Nonabsorption Type 2 Diabetes, Controlled, With Neuropathy (Hcc) Personal History of Dvt (Deep Vein Thrombosis) Family History of Ischemic Heart Disease Hypercoagulable State (Hcc) Iron Malabsorption H/O Gastric Bypass CKD (chronic kidney disease) Stage 4, GFR 15-29 ml/min Red Blood Cell Antibody Positive Pulmonary Nodules Anemia of Renal Disease Mixed Hyperlipidemia Esrd (End Stage Renal Disease) (Hcc) Hyperkalemia COVID-19 Immunization Status COVID-19 VACCINE (Series Information) Completed 03/21/2022 Imm Admin: COVID-19 booster vaccine, age 12+ yr, bivalent (CloudHelix) 08/15/2020 Outside Immunization: COVID-19, mRNA, LNP-S, PF, 30 mcg/0.3 mL dose 07/25/2020 Outside Immunization: COVID-19, mRNA, LNP-S, PF, 30 mcg/0.3 mL dose CHIEF COMPLAINT: Pre-op exam HPI: Margareth Gonzalez is a 57 year old seen for PAC due to scheduled above surgery because of ESRD. 05/26/2022, Dr. Hunter HPI: Ms. Gonzalez is a 56 year old female with a PMHx of diabetes melltius, gastric bypass surgery, bipolar disorder, hypertension, and IBS who presents with chronic kidney disease stage IV. Previously followed with Dr. Melgoza Etiology secondary to diabetic nephropathy, unrecovered SERGIO in the setting of NSAID use, and hemodynamic fluctuations during surgery 11/2020: Sodium bicarbonate 650 mg BID initiated 03/2021: No changes 06/2021: Transplant evaluation 07/2021: Fab: Vascular surgery to arrange fistula placement 11/2021: Fab: AVG once close to dialysis. Needs knee replacement prior to transplant. Established with hematology - IV iron 01/10/2022 - eGFR 15 02/04/2022 - Interested in HHD. No changes. Labs on 05/24/2022 with creatinine 4.2 and eGFR of 12 Duration (when): Years Location (where): Kidneys Severity (ex: creat 4.5, BP 200/100): CKD V Quality (ex: sharp, dull): Chronic Context (ex: activity at onset or related to condition): Surgeries, diabetes, and hypertension Timing (ex: continuous, intermittent): Continuous Modifying factors (ex: medications, interventions): Oral diabetic agents and blood pressure medications Associated signs & symptoms (ex: edema, SOB): N/A REVIEW OF SYSTEMS: General: No weight loss, malaise or fevers. Neurological: No history of TIA's, stroke, SENIOR PLANNING MANAGER tumor, impaired sensorium, hemiplegia, paraplegia orquadraplegia. No neurological symptoms or problems. Respiratory: +former smoker Positive for: obstructive sleep apnea and CPAP/BiPAP noncompliant. Negative for: asthma, COPD, pneumonia within 6 weeks, tobacco use and URI < 2 weeks. Cardiovascular: Positive for: anticoagulation therapy (ASA), DVT/PE, hyperlipidemia and hypertension Negative for: arrhythmia, atrial fibrillation, CAD, chest pain, CHF, congenital heart defect, recent GA, murmur/valvular heart disease, open heart surgery and valve surgery. GI: +gastric bypass Positive for: GERD (on rx) and nausea Negative for: abdominal pain, dysphagia, irritable bowel syndrome, inflammatory bowel disease, liver disease, pancreatitis, vomiting and ETOH >2 drinks/day. : Positive for: renal failure. Patient's renal failure is chronic. Negative for: nephrolithiasis and urinary tract infection. 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 Endocrine: Positive for: diabetes mellitus and diabetic neuropathy (no rx). Patient's diabetes mellitus is controlled by oral agents and weekly injectable. Negative for: hypothyroidism. Hematology: Positive for: anemia, anemia associated with chronic kidney disease and chronic anti-coagulation/platelet meds. Patient is on anti-coagulation/platelet medication(s): Aspirin. Negative for: bruises/bleeds easily and transfusion of at least 4 units within 72 hours prior to surgery. Oncology: No history of CA metastasis, chemo within 30 days, or radiotherapy within 90 days. No history of oncological symptoms or problems. Psych: Positive for: bipolar disorder (on rx). Musculoskeletal: Negative for joint pain or swelling, back pain or muscle pain. Skin: Negative for lesions, rash and itching. PAST MEDICAL HISTORY Diagnosis Date Acute gastritis without mention of hemorrhage Allergic rhinitis Anaphylaxis Anemia Back pain Benign essential tremor Bipolar I disorder, most recent episode (or current) unspecified sectrum Bone mass Candidiasis, intertrigo Chronic kidney disease Contraceptive management Depression Diabetes ([facility]) Diarrhea DVT, lower extremity ([facility]) 08/2014 Right leg (6) Esophagitis ESRD (end stage renal disease) ([facility]) 07/03/2022 Facial fracture due to fall ([facility]) Fatigue Fibromyalgia Fracture Fracture of shaft of fibula GERD (gastroesophageal reflux disease) HLD (hyperlipidemia) on tricor Hyperlipidemia Hypertension Hypomagnesemia Hypopotassemia IBS (irritable bowel syndrome) Insomnia Intertrigo Knee pain Morbid obesity ([facility]) 03/11/2011 Myalgia Nausea Neck pain Neuropathy Nocturnal leg cramps Non-cardiac chest pain Obesity CASSIE (obstructive sleep apnea) 07/08/2011 Other polyp of sinus Other specified anemias Personal history of unspecified urinary disorder PMH - PAST MEDICAL HISTORY OF left knee surgery x3 Pulmonary nodules Pyelonephritis, acute Restless leg Ruptured appendicitis S/P gastric bypass Snoring Type 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, not stated as uncontrolled(250.50) on oral medications and Lanuts Unspecified asthma(493.90) on inhalers Unspecified essential hypertension on medical management Upper abdominal pain Urinary frequency Vitamin D deficiency PAST SURGICAL HISTORY Procedure Laterality Date CHOLECYSTECTOMY 04/2011 COLONOSCOPY W/BIOPSY SINGLE/MULTIPLE 12/16/07 DILATION & CURETTAGE DX&/THER NONOBSTETRIC Dilation & curettage EGD TRANSORAL BIOPSY SINGLE/MULTIPLE 12/16/07 ESOPHAGOGASTRODUODENOSCOPY TRANSORAL DIAGNOSTIC age 14 EGD LAPAROSCOPIC APPENDECTOMY 05/16/11 MIDLINE INSERTION/CONSULT 07/29/2012 Lap Paul-en-Y gastric bypass PAST SURGICAL HISTORY OF age 14 left knee surgery, for dislocation PAST SURGICAL HISTORY OF age 5 warts removed PAST SURGICAL HISTORY OF 2007 laser surgery to both eyes for diabetic retinopathy PAST SURGICAL HISTORY OF 04/26/2008 Bilateral eye surgery- vitrectomy PAST SURGICAL HISTORY OF 06/2008 Left eye air fluid exchange PAST SURGICAL HISTORY OF 04/09, 07/07 retinal vitrectomies STRESS TEST 200p, 2015 Normal results TUBAL LIGATION HX ablation at the same time FAMILY HISTORY Problem Relation Age of Onset Diabetes Mother from renal disease Coronary Artery Disease Mother other (Diabetic Retinaopathy) Mother Cancer Mother uterine Stroke Mother Kidney Disease Mother Thyroid Father Thyroid Sister skin cancer Kidney Disease Sister Diabetes Sister Diabetes Sister Coronary Artery Disease Brother Diabetes Brother Coronary Artery Disease Brother Colon Cancer Other none Breast Cancer Other none Social History Tobacco Use Smoking status: Former Packs/day: 2.00 Years: 6.00 Pack years: 12.00 Types: Cigarettes Quit date: 07/31/1989 Years since quittin.9 Smokeless tobacco: Never Tobacco comments: Quit at age 24 Vaping Use Vaping Use: Never used Substance Use Topics Alcohol use: Not Currently Comment: rare Drug use: No Comment: Tried marijuana once - never used it again. Prior to Admission medications as of 06/30/22 1542 Medication Sig Last Dose Taking calcitriol (ROCALTROL) 0.25 mcg capsule Take 2 capsules by mouth once daily. Taking Yes labetalol (TRANDATE) 100 mg tablet Take 1 tablet by mouth twice daily. Taking Yes omeprazole (PRILOSEC) 20 mg capsule Take 1 capsule by mouth once daily. Taking Yes sertraline (ZOLOFT) 50 mg tablet Take 1 tablet by mouth once daily. Taking Yes amitriptyline (ELAVIL) 100 mg tablet Take 1 tablet by mouth daily at bedtime. Taking Yes atorvastatin (LIPITOR) 40 mg tablet Take 1 tablet by mouth daily at bedtime. For cholesterol. Taking Yes ondansetron orally disintegrating (ZOFRAN ODT) 4 mg disintegrating tablet Take 1 tablet by mouth every 8 hours as needed for nausea/vomiting. Taking Yes famotidine (PEPCID) 20 mg tablet Take 1 tablet by mouth once daily as needed. Taking Yes TRULICITY 1.5 mg/0.5 mL pen injector INJECT 1.5 MG UNDER THE SKIN ONCE A WEEK Taking Yes glipiZIDE (GLUCOTROL XL) 5 mg 24 hr tablet Take 2 tablets by mouth once daily. Yes sodium bicarbonate 650 mg tablet Take 2 tablets by mouth twice daily. Taking Yes pioglitazone (ACTOS) 45 mg tablet Take 1 tablet by mouth once daily. Taking Yes flash glucose scanning reader (SimpleReachSTYLE FESTUS 2 READER) Use to check glucose 3 times daily and continuously. 1 per year. Taking Yes flash glucose sensor (FREESTYLE FESTUS 2 SENSOR) kit Use to check glucose 3 times daily and continuously. Change every 14 days. 6 per 90 day supply. Taking Yes baclofen (LIORESAL) 10 mg tablet Take 1 tablet by mouth three times daily as needed. Taking Yes cholecalciferol (VITAMIN D3) 5,000 unit tab Take 5,000 Units by mouth twice daily. Taking Yes aspirin, enteric coated (ADULT LOW DOSE ASPIRIN) 81 mg EC tablet Take 1 tablet by mouth once daily.Taking Yes [id number]-[id number]-Emt-Fe-FA ( VITAMIN) ORAL Tab Take 1 tablet by mouth once daily. Taking Yes Medication Comments documented by Swathi Haddad Ma on 11/28/2017 at 1114. Pt states all meds were just gone over. Did not go over meds. Swathi Haddad Ma November 28, 2017 ALLERGIES Allergen Reactions Vicodin [Hydrocodon* Vomiting Balsam 115 Benadryl [Diphenhyd* Rash, Itching Chamomile Asthma attack Codeine Vomiting, Other: See Comments Lisinopril Contraindication-Medical Surgical Acute renal failure Mold Nsaids (Non-Steroid* Other: See Comments Unable to take nsaids after having gastric bypass. Penicillins Anaphylaxis Seasonal Allergies Other: See Comments Nose runs, sneezing... Spider [Other] Tetracycline Rash Vanilla Extract Objective PHYSICAL EXAM: General: alert and oriented (x3), healthy appearance and obese. Pertinent negatives noted - not distressed. Skin: normal color, no rash or lesions. HEENT: EOM intact and pupils equal round. Pertinent negatives noted - no carotid bruit. Cardiovascular: regular rate and rhythm, normal S1 and S2, no rub, murmurs, or gallop. Respiratory: normal breath sounds, no wheezes or crackles. No chest wall deformity or tenderness. Abdomen: soft. Pertinent negatives noted - not tender. Extremities: no deformity, no edema or tenderness, no joint swelling or clubbing. Neurological: normal cognition and motor skills. Gait normal. No weakness or sensory deficit. PAIN ASSESSMENT: VITALS: BP 138/86 Pulse 89 Temp (Src) 97.1 (Temporal) Resp 16 Ht 5' 8 (1.73m) Wt 237 lb (107.5kg) SpO2 96% LMP 09/20/2014 BMI 36.04 kg/(m^2). Diagnostic tests reviewed for today's visit: Lab Value Units Date High Low HB 10.0 g/dL 06/30/2022 15.5 11.5 HCT 30.7 % 06/30/2022 46.0 36.0 WBC 6.22 k/uL 06/30/2022 11.00 3.70 PLT 184 k/uL 06/30/2022 400 150 NA 138 mmol/L 07/03/2022 144 136 K 5.0 mmol/L 07/03/2022 5.1 3.7 GLUC 199 mg/dL 07/03/2022 99 74 BUN 47 mg/dL 07/03/2022 21 7 CREAT 4.55 mg/dL 07/03/2022 0.96 0.58 PTSEC No results within date range. INR No results within date range. APTT No results within date range. ALT 32 U/L 06/30/2022 38 7 AST 34 U/L 06/30/2022 35 13 TBILI 0.2 mg/dL 06/30/2022 1.3 0.2 TSH No results within date range. Lab Value Units Date High Low HCGQT No results within date range. UHCG No results within date range. HCG, BODY* No results within date range. Lab Value Units Date High Low ABORHD No results within date range. ABSCREEN No results within date range. Hemoglobin A1C (%) Date Value 03/22/2022 7.3 09/21/2021 7.8 05/07/2021 9.7 10/27/2020 7.7 07/20/2020 9.8 04/21/2020 10.9 02/21/2019 8.9 07/07/2018 7.9 Recent Results (from the past 8760 hour(s)) ECG COMPLETE Collection Time: 08/15/21 10:12 AM Result Value Ventricular Rate 93 Atrial Rate 93 P-R Interval 164 QRS Duration 88 QT Interval 368 QTC Calculation (Bazett) 457 Calculated P [place] 67 Calculated R [place] 20 Calculated T [place] 63 Impression NORMAL SINUS RHYTHM NORMAL ECG Confirmed by MODESTO GOODMAN M.D. ([id number]) on 08/21/2021 4:13:04 PM Recent Results (from the past 69212 hour(s)) ECHO Collection Time: 08/15/21 3:12 PM Impression CONCLUSIONS: - Exam indication: Pre Kidney Transplant - The left ventricle is normal in size. Left ventricular systolic function is normal. EF = 60 5% (2D biplane) Normal left ventricular diastolic function. - The right ventricle is normal in size. Right ventricular systolic function is normal. - There are no significant valvular abnormalities. - Exam was compared with the prior echocardiographic exam performed on 01/01/2012. There is no significant change. * * * Final * * * Assessment Patient has the following medical conditions which may affect albin-operative course: Asthma Assessment: rx as needed BIPOLAR DISORDER NOS Assessment: stable on rx per pt ANEMIA NOS Assessment: CKD and EDISON, taking supplement Hemoglobin (g/dL) Date Value 06/30/2022 10.0 03/27/2021 10.9 Hematocrit (%) Date Value 06/30/2022 30.7 03/27/2021 34.0 WBC (k/uL) Date Value 06/30/2022 6.22 03/27/2021 5.56 Neuropathy Assessment: DM, no tx GERD (gastroesophageal reflux disease) Assessment: controlled on rx Type 2 diabetes, controlled, with neuropathy (HCC) Assessment: controlled on orals and weekly injectable Hemoglobin A1C (%) Date Value 03/22/2022 7.3 10/27/2020 7.7 H/O gastric bypass Assessment: hx, taking supplements Essential hypertension Assessment: controlled on rx Last 14 BP Last 14 Encounter BP Readings: Date: BP: 06/30/2022 138/86 06/24/2022 132/78 05/26/2022 162/89 04/02/2022 122/72 03/21/2022 126/82 03/04/2022 148/88 02/18/2022 166/84 02/04/2022 180/91 01/13/2022 172/79 01/10/2022 160/95 01/08/2022 159/89 01/02/2022 155/71 12/30/2021 143/74 12/18/2021 187/88 Mixed hyperlipidemia Assessment: c/w statin Personal history of DVT (deep vein thrombosis) Assessment: LE, provoked, tx with AC therapy, now daily ASA Hypercoagulable state (HCC) Assessment: no specific blooding clotting disorder detected per pt, evaluated by hematology ESRD (end stage renal disease) (HCC) Assessment: slowly trending down Creatinine Date Value Ref Range Status 07/03/2022 4.55 (H) 0.58 - 0.96 mg/dL Final 06/30/2022 4.37 (H) 0.58 - 0.96 mg/dL Final 05/24/2022 4.24 (H) 0.58 - 0.96 mg/dL Final 01/10/2022 3.53 (H) 0.58 - 0.96 mg/dL Final Pulmonary nodules Assessment: under surveillance by PCP due for updated CT 07/2022 CT chest IMPRESSION: 1. New small indeterminate subcentimeter pulmonary nodule within the right lower lobe. Additional scattered solid pulmonary nodules are stable including 10 mm solid nodule within the right middle lobe are stable compared to 11/05/2016 CT chest, likely benign given over 2 year stability. Groundglass nodules within the right lung seen on the prior study have resolved, and were likely infectious/inflammatory in etiology. Follow-up chest CT in 12 months may be obtained to evaluate stability of the new nodule. 2. Scattered subtle centrilobular groundglass opacities within the upper lobes may represent respiratory bronchiolitis. 3. No thoracic lymphadenopathy. OBESITY NOS Assessment: Body mass index is 36.04 kg/m . Hyperkalemia Assessment: found on pre-op labs, nephrology tx with kayexalate and recheck to be normal Potassium Date Value Ref Range Status 07/03/2022 5.0 3.7 - 5.1 mmol/L Final 06/30/2022 5.9 (H) 3.7 - 5.1 mmol/L Final 05/24/2022 5.1 3.7 - 5.1 mmol/L Final Arellano Activity Status Index: METS: Walk indoors, such as around the house (1.75 METs) Do light work around the house, such as dusting or washing dishes (2.70 METs) Take care of self; that is eating, dressing, bathing, using the toilet (2.75 METs) Walk a block or two on level ground (2.75 METs) DASI Score: 9.95 Patient denies any chest pain or undue shortness of breath with the above physical activity. Clinical Frailty Scale: 4. Apparently vulnerable STOP-Bang Score: Snores loudly Has been observed to stop breathing or choking/gasping during sleep Has or is being treated for high blood pressure BMI greater than 35 kg/m^2 Patient over 50 years old Has a large neck Denies feeling tired, fatigued, or sleepy during the daytime Non-male patient STOP-Bang Score: 6 [id number] Score: Age: <65 Sex: female CHF history: No Hypertension history: Yes Stroke/TIA/thromboembolism history: Yes Vascular disease history: No Diabetes history: Yes [id number] Score: 5 ARISCAT Score: Age: 51-80 Preoperative SpO2: >=96% Respiratory infection in the last month: No Preoperative anemia: Yes Surgical incision: peripheral Duration of surgery: 2-3 hrs Emergency procedure: No ARISCAT Score: 30 ASA Class: 3 ANESTHESIA FINDINGS: Intubation History: No history of difficult intubation Significant Anesthesia Considerations: none Airway History: No history of difficult airway I - PHYSICAL EVALUATION AIRWAY Patient intubated: No. Tracheostomy tube not present Mallampati: II. TM distance: >3 FB. Neck ROM: full ROM without neurological symptoms. Mouth opening: adequate. Short neck: no. Thick neck: yes Vivar present: no Lip Bite Test: II Microretrognathia/Micronagthia/Recessed Chin: No DENTAL Dental findings: teeth intact. II - ANESTHESIA PLAN ASA Score: 3 Anesthetic Plan: other Anesthetic plan additional comments: *PACC/TCI - anesthesia choice. Beta Darvin Monitoring Plan Post Procedure Analgesic Plan Informed Consent Anesthetic risks, benefits, alternatives, personnel and consent discussed: yes. Patient / Responsible Republican agrees to proceed: yes Patient / Surrogate agrees to blood products: blood products not planned Discussed the possibility of lip / dental damage: yes Prepared for Surgery: optimally prepared for surgery. labs CONSULTS: Patient does not require consults for optimization at this time Planned Anesthetic: other anesthesia choice The Following Tests/Procedures Have Been Initiated: Orders Placed This Encounter >CBC + AUTO DIFF Standing Status: Future Number of Occurrences: 1 Standing Expiration Date: 08/30/2022 >CMP Standing Status: Future Number of Occurrences: 1 Standing Expiration Date: 08/30/2022 Urine Culture Standing Status: Future Number of Occurrences: 1 Standing Expiration Date: 08/30/2022 Order Specific Question: Source Answer: URINE-MIDSTREAM CLEAN CATCH Instructions Given to Patient: Instructions located in the after visit summary. Patient given verbal and written preop instructions and voices comprehension and compliance. SIGNATURE: Jess Oconnor APRN.CNP PATIENT NAME: Margareth Gonzalez DATE: June 30, 2022 TIME: 3:39 PM PAGER/CONTACT #: [facility] Instructions* Patient Instructions* Jess Oconnor APRN.CNP - 06/30/2022 3:39 PM EDT PATIENT PREOPERATIVE INSTRUCTIONS Jonathan Valenzuela* has scheduled you for your procedure at this [facility] center: [facility]: [phone] --[id number] [address]. Please check in on the1st floor at registration desk 6. Please read below carefully for your personalized instructions. Dietary Restrictions: - No solid food after midnight. - You may have 12 ounces of clear liquids (water, clear juices such as apple juice or gatorade, carbonated beverages, clear tea, black coffee, jello) until 2 hours before scheduled arrival at facility. No red/purple coloring and no creamer/sugar Medications: Unless instructed differently below, stay on all of your medications until your surgery. Approved medications to take the morning of surgery with a sip of water: All rx meds are okay except oral diabetic medication hold the morning of surgery If you start any new medications after today's visit, please contact the surgeon's office. Blood Thinning Medications: - Stop NSAIDS (Ibuprofen, Advil, Aleve, Motrin, Celebrex, Mobic, etc.) 7 days before surgery, as directed by your surgeon. - Stop Aspirin 7 days before surgery, as directed by your surgeon. - Stop Vitamin E, ALL multi-vitamins, herbals and dietary supplements 7 days before surgery. - You may take Tylenol (Acetaminophen) or any of your pain medications that do not contain aspirin or NSAIDS as needed. Important Reminders: - Candy, mints, and tobacco products are NOT permitted the morning of surgery. - Hearing aids, dentures and glasses may be worn the morning of surgery. - NO jewelry, body piercings, makeup, hairpins or contacts are to be worn the day of surgery. If you develop symptoms such as a fever, cold, or flu, or have other changes to your health within TWO DAYS of scheduled surgery or the morning of surgery, please contact the surgery center above. Personal Belongings: -Please have photo ID and insurance cards. -If you do not have a copy of advance directives on file with us, please bring a copy with you on the day of surgery. - Leave ALL valuables and money at home or with family members. For Outpatient Procedures: - YOU MUST HAVE A RESPONSIBLE LEISURE TRAVEL AGENT TAKE YOU HOME. A ROUGH AND TRUING MACHINE OPERATOR OR SEW OUT OPERATOR CANNOT BE MADE A RESPONSIBLE LEISURE TRAVEL AGENT. - We recommend that a responsible person stays with you overnight to take care of you. - You cannot stay in a hotel alone after outpatient surgery. You will not be permitted to have yoursurgery, if you do not have someone to take care of you. Arrival Time for Surgery: - The Surgery Center or hospital where you are having surgery will call the afternoon before surgery (or Thursday for Thursday surgery) with a scheduled arrival time. - If you have not heard by 4 pm, please contact the surgery center above. Please be aware that emergency situations arise, which may delay or change your surgical time. If this happens, we will notify you as soon as possible and regret any inconvenience. If you already have an Advance Directive, please fax a copy to [phone] or email to for it to be added to your chart. If you do not have an Advance Directive, you can find the appropriate form and more information at [email or web address]. We recommend that youcomplete the Advance Directive form found on the website and bring it with you the day of your surgery. It can be witnessed and scanned into your chart that day. Jess Oconnor APRN.NOY documented in this encounter[facility]04-26-2023 Miscellaneous Notes* Telephone Encounter - Nivia Fuentes Adm - 06/25/2022 1:37 PM EDT Patient phones requesting refills as follows: Requested Prescriptions Pending Prescriptions Disp Refills calcitriol (ROCALTROL) 0.25 mcg capsule 180 capsule 0 Sig: Take 2 capsules by mouth once daily. Please review and advise. Nivia Fuentes Adm documented in this encounterFisher[facility]04-25-2023 History of Present illness Narrative* Kirsten Euceda PA-C - 06/24/2022 10:33 AM EDT This note was created using MeetMeter. Subjective Margareth Gonzalez is a 57 year old female. HPI Patient presents with a chief complaint of urinary frequency, dysuria pelvic discomfort over the past 2 days. She has had UTIs previously and this feels similar. She has had some low back pain. She does have a history of chronic kidney disease and is having a fistula placed at the end of June to start dialysis. Denies fever. She has had some nausea. No vomiting. No flank pain. No blood in urine. She did check her blood sugar this morning and was 130. Review of Systems Constitutional: Positive for fatigue. Negative for fever. HENT: Negative. Respiratory: Negative. Cardiovascular: Negative. Gastrointestinal: Positive for nausea. Negative for diarrhea and vomiting. All other systems reviewed and are negative. PAST MEDICAL HISTORY Diagnosis Date Acute gastritis without mention of hemorrhage Allergic rhinitis Anaphylaxis Anemia Back pain Benign essential tremor Bipolar I disorder, most recent episode (or current) unspecified sectrum Bone mass Candidiasis, intertrigo Chronic kidney disease Contraceptive management Depression Diabetes ([facility]) Diarrhea DVT, lower extremity ([facility]) 08/2014 Right leg (6) Esophagitis Facial fracture due to fall ([facility]) Fatigue Fibromyalgia Fracture Fracture of shaft of fibula GERD (gastroesophageal reflux disease) HLD (hyperlipidemia) on tricor Hyperlipidemia Hypertension Hypomagnesemia Hypopotassemia IBS (irritable bowel syndrome) Insomnia Intertrigo Knee pain Morbid obesity ([facility]) 03/11/2011 Myalgia Nausea Neck pain Neuropathy Nocturnal leg cramps Non-cardiac chest pain Obesity CASSIE (obstructive sleep apnea) 07/08/2011 Other polyp of sinus Other specified anemias Personal history of unspecified urinary disorder PMH - PAST MEDICAL HISTORY OF left knee surgery x3 Pulmonary nodules Pyelonephritis, acute Restless leg Ruptured appendicitis S/P gastric bypass Snoring Type 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, not stated as uncontrolled(250.50) on oral medications and Lanuts Unspecified asthma(493.90) on inhalers Unspecified essential hypertension on medical management Upper abdominal pain Urinary frequency Vitamin D deficiency Current Outpatient Medications Medication Sig Dispense Refill labetalol (TRANDATE) 100 mg tablet Take 1 tablet by mouth twice daily. 180 tablet 3 calcitriol (ROCALTROL) 0.25 mcg capsule Take 2 capsules by mouth once daily. 180 capsule 0 omeprazole (PRILOSEC) 20 mg capsule Take 1 capsule by mouth once daily. 90 capsule 1 sertraline (ZOLOFT) 50 mg tablet Take 1 tablet by mouth once daily. 90 tablet 3 amitriptyline (ELAVIL) 100 mg tablet Take 1 tablet by mouth daily at bedtime. 90 tablet 3 atorvastatin (LIPITOR) 40 mg tablet Take 1 tablet by mouth daily at bedtime. For cholesterol. 90 tablet 3 ondansetron orally disintegrating (ZOFRAN ODT) 4 mg disintegrating tablet Take 1 tablet by mouth every 8 hours as needed for nausea/vomiting. 12 tablet 0 famotidine (PEPCID) 20 mg tablet Take 1 tablet by mouth once daily as needed. 30 tablet 0 TRULICITY 1.5 mg/0.5 mL pen injector INJECT 1.5 MG UNDER THE SKIN ONCE A WEEK 6 mL 3 glipiZIDE (GLUCOTROL XL) 5 mg 24 hr tablet Take 2 tablets by mouth once daily. 180 tablet 3 sodium bicarbonate 650 mg tablet Take 2 tablets by mouth twice daily. 360 tablet 3 pioglitazone (ACTOS) 45 mg tablet Take 1 tablet by mouth once daily. 90 tablet 3 flash glucose scanning reader (FREESTYLE FESTUS 2 READER) Use to check glucose 3 times daily and continuously. 1 per year. 1 Each 0 flash glucose sensor (FREESTYLE FESTUS 2 SENSOR) kit Use to check glucose 3 times daily and continuously. Change every 14 days. 6 per 90 day supply. 6 Each 3 baclofen (LIORESAL) 10 mg tablet Take 1 tablet by mouth three times daily as needed. 30 tablet 1 cholecalciferol (VITAMIN D3) 5,000 unit tab Take 5,000 Units by mouth twice daily. aspirin, enteric coated (ADULT LOW DOSE ASPIRIN) 81 mg EC tablet Take 1 tablet by mouth once daily. Vuzjosvy-Dr-Szs-Fe-FA ( VITAMIN) ORAL Tab Take 1 tablet by mouth once daily. 0 cephALEXin (KEFLEX) 500 mg capsule Take 1 capsule by mouth twice daily for 7 days. 14 capsule 0 No current facility-administered medications for this visit. PAST SURGICAL HISTORY Procedure Laterality Date CHOLECYSTECTOMY 04/2011 COLONOSCOPY W/BIOPSY SINGLE/MULTIPLE 12/16/07 DILATION & CURETTAGE DX&/THER NONOBSTETRIC Dilation & curettage EGD TRANSORAL BIOPSY SINGLE/MULTIPLE 12/16/07 ESOPHAGOGASTRODUODENOSCOPY TRANSORAL DIAGNOSTIC age 14 EGD LAPAROSCOPIC APPENDECTOMY 05/16/11 MIDLINE INSERTION/CONSULT 07/29/2012 Lap Paul-en-Y gastric bypass PAST SURGICAL HISTORY OF age 14 left knee surgery, for dislocation PAST SURGICAL HISTORY OF age 5 warts removed PAST SURGICAL HISTORY OF 2007 laser surgery to both eyes for diabetic retinopathy PAST SURGICAL HISTORY OF 04/26/2008 Bilateral eye surgery- vitrectomy PAST SURGICAL HISTORY OF 06/2008 Left eye air fluid exchange PAST SURGICAL HISTORY OF 04/09, 07/07 retinal vitrectomies STRESS TEST 200p, 2015 Normal results TUBAL LIGATION HX ablation at the same time FAMILY HISTORY Problem Relation Age of Onset Diabetes Mother from renal disease Coronary Artery Disease Mother other (Diabetic Retinaopathy) Mother Cancer Mother uterine Stroke Mother Kidney Disease Mother Thyroid Father Thyroid Sister skin cancer Kidney Disease Sister Diabetes Sister Diabetes Sister Coronary Artery Disease Brother Diabetes Brother Coronary Artery Disease Brother Colon Cancer Other none Breast Cancer Other none Social History Tobacco Use Smoking status: Former Packs/day: 2.00 Years: 6.00 Pack years: 12.00 Types: Cigarettes Quit date: 07/31/1989 Years since quittin.9 Smokeless tobacco: Never Tobacco comments: Quit at age 24 Vaping Use Vaping Use: Never used Substance Use Topics Alcohol use: Not Currently Comment: rare Drug use: No Comment: Tried marijuana once - never used it again. Objective BP 132/78 Pulse 90 Temp 36.5 C (97.7 F) (Tympanic) Resp 18 Wt 108.4 kg (239 lb) LMP 09/20/2014 SpO2 95% BMI 37.51 kg/m Physical Exam Vitals reviewed. Constitutional: Appearance: Normal appearance. HENT: Head: Normocephalic and atraumatic. Cardiovascular: Rate and Rhythm: Normal rate and regular rhythm. Heart sounds: Normal heart sounds. Pulmonary: Effort: Pulmonary effort is normal. Breath sounds: Normal breath sounds. Abdominal: General: Abdomen is flat. Palpations: Abdomen is soft. Tenderness: There is abdominal tenderness. There is no right CVA tenderness, left CVA tenderness orguarding. Comments: Patient has mild suprapubic tenderness on palpation. No guarding or rebound. Neurological: General: No focal deficit present. Mental Status: She is alert and oriented to person, place, and time. Assessment and Plan ASSESSMENT/PLAN: 1. Acute UTI - ICD9: 599.0, ICD10: N39.0 acute - UA positive for brandon esterase, hematuria, and proteinuria - Send urine for culture - Begin treatment with keflex for 7 days Creatinine clearance calculated at 25 via crockcroft gault equation - UA DIP, URINE (POC) - URINE CULTURE Kirsten Euceda PA-C documented in this encounter[facility]04-21-2023 History of Present illness Narrative* Kaylin Carranza RN - 06/20/2022 12:47 PM EDT CKD SPECIALIZED COORDINATION QUICK NOTE Provider Action/FYI Telephone call Telephone call placed to pt. My call went to voice mail. Left msg identifying myself & the reason for my call. Requested a return call @ her earliest convenience. Kaylin Carranza RN documented in this encounter[facility]04-20-2023 Miscellaneous Notes* Telephone Encounter - Angeline Spangler - 06/19/2022 9:04 AM EDT Left patient message to call back to schedule Left arm av graft, per Dr Valenzuela needs to be done at [place], patient does not need OV prior to scheduling. Angeline Spangler documented in this encounterFisher[facility]04-13-2023 History of Present illness Narrative* Dakota Rajput MD - 06/12/2022 3:10 PM EDT CONSULT ORTHOPAEDIC: KNEE PRIMARY CARE PHYSICIAN: Ignacio Cheatham MD REFERRING PROVIDER: Reagan Garcia[address] [facility] [id number] ASSESSMENT & PLAN Impression: Arnold is a very nice 57-year-old woman who has severe posttraumatic left knee osteoarthritis. She was previously seen by my partner Dr. Reagan Riggs. He has indicated her for complex robotic knee replacement. He is deferred to me for surgical management based on the complexity of the case. She has substantial risk factors for infection and complication in general. She has had MRSA bacterial infections in the past. She has chronic kidney disease and is on the transplant list but has been told she needs get her knee replaced before the transplant. She also had major open operation of her knee previously and has a large scar. She has severe posttraumatic changes to her knee and severe symptoms. Her range of motion is very limited as is her function. If she is cleared by her renal team, we can proceed with a complex total knee replacement. I would do this robotically based on the deformity and we will need a CT scan ahead of time. We will use an incisional vacuum and nylon sutures. We will also use vancomycin plus Ancef during surgery and doxycycline for 2 weeks postoperatively. All questions answered today and an informed consent was signed. The patient has been ordered: CT Margareth Gonzalez meets the following criteria for CT: Robotic surgery CONSULTS: IMPACT/PACE Consult for preoperative clearance. ACTIVE PROBLEM LIST Acute Gastritis Obesity, Unspecified Anemia, Unspecified Background Diabetic Retinopathy (Hcc) Unspecified Asthma(493.90) Calculus of Gallbladder Without Mention of Cholecystitis Or Obstruction Bipolar Disorder, Unspecified (Hcc) Essential Hypertension Type 2 Diabetes Mellitus With Stage 4 Chronic Kidney Disease, Without Long-Term Current Use of Insulin (Hcc) Iron Deficiency Anemia, Unspecified Edema Fibromyalgia Neuropathy Vitamin D Deficiency Microalbuminuria Gerd (Gastroesophageal Reflux Disease) Proliferative Diabetic Retinopathy (Hcc) Pseudophakia Cassie (Obstructive Sleep Apnea) Other and Unspecified Postsurgical Nonabsorption Type 2 Diabetes, Controlled, With Neuropathy (Hcc) Personal History of Dvt (Deep Vein Thrombosis) Family History of Ischemic Heart Disease Hypercoagulable State ([facility]) Iron Malabsorption H/O Gastric Bypass CKD (chronic kidney disease) Stage 4, GFR 15-29 ml/min Red Blood Cell Antibody Positive Pulmonary Nodules Anemia of Renal Disease SUBJECTIVE CHIEF COMPLAINT: Knee Pain HPI: Margareth Gonzalez is a 57 year old patient here for evaluation and management of left knee pain. 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 The problem began limiting activities 3+ years ago. Currently the pain in the joint is rated at 4 out of 10 with minimal activity. The pain is intermittent and is located along the inside aspect and along the outside aspect. The pain is described as aching, stiffness, and crunching. Relieving factors include rest, over the counter medication, and repositioning. The pain appears to be directly related to injury (dislocating knee cap at 14 years old). Margareth Gonzalez also complains of weakness, referred pain, stiffness, popping, and giving way. FUNCTIONAL STATUS: Climb a flight of stairs or walk up a hill (5.50 METs) Total Joint Arthroplasty: Risk Calculator Margareth Gonzalez has a 20.66% chance of NOT returning home at discharge for a Primary total Knee replacement. Margareth's estimated Length of Stay is 2 days (Inpatient candidate). Margareth's 30 day chance of readmission is 4.01%. Readmission Probability 4.01 % (within 30 days following surgery) Estimated LOS 2 days Discharge Disposition Probability D/C to Home 79.34 % D/C to SNF 20.66 % These calculations are based on the following factors: - 57 years of age - sex is not male - BMI of 36 kg/m2 - NarxCare score of 0 - 0 hospitalizations in the last 12 months - history of heart disease - history of diabetes - no history of COPD - history of anemia - preoperative ambulation: impaired community distances - 4 step(s) to enter home - bed location is on the first floor - bath location is on the first floor - no caregiver - home is not more than 150 miles away - PROMIS-10 Mental Health T score 41-49 - Marital status: single PREVIOUS TREATMENTS: Attempted Weight Loss Medical Treatments: Intolerant of NSAIDS Physical Therapy: Shoe Wear, Braces, Orthotics, etc. and Activities Modified REVIEW OF SYSTEMS: PAIN ASSESSMENT: See HPI. MUSCULOSKELETAL: See HPI. Risk Factors for Total Joint Arthroplasty (TJA) Obesity Moderate Risk High: BMI > 40 Moderate: BMI 30-40 Normal: BMI < 30 Diabetes Moderate Risk High: A1C > 8 Moderate: A1C 7-8 Normal: A1C < 7 Smoking normal High: Current smoker Normal: Non smoker Anemia High Risk High: Hgb < 11.5 (women) N/A: Hgb >= 11.5 (women) Nutritional Status normal High: Alb<3.4, or prealb<15, or serum transferrin<200, or total lymphocyte count<1500 Normal: normal labs COPD normal High: dx of COPD Normal: no dx of COPD MRSA normal High: dx of MRSA or positive lab test Normal: no MRSA CKD normal High: eGFR<60 Moderate: eGFR 60-89 Normal: eGFR>90 Hx of DVT / PE High Risk High: dx of DVT / PE Normal: no dx of DVT / PE Narcotics Use normal High:NarxCare >=300 Moderate: 100-299 Normal: 0-99 CASSIE High Risk High: dx of CASSIE N/A: no dx of CASSIE Coagulation normal High:PT Sec>13, or PT INR>1.3, or APTT>32.4, or Plt ct<150k Moderate: on anticoag but none of the above Normal: none Obesity: weight management recommended BMI Readings from Last 3 Encounters: 05/26/22 : 36.51 kg/m 04/02/22 : 36.23 kg/m 03/21/22 : 36.73 kg/m Diabetes: Margareth has been diagnosed with Type 2 Diabetes. Her last Hemoglobin A1C was 7.3 (03/22/2022). Pt is followed by Ignacio Cheatham for Type 2 Diabetes - last seen on 03/21/2022. Consult to the Endocrinology and Metabolic [place] ([facility]) recommended prior to surgery. Anemia Hemoglobin (g/dL) Date Value 05/24/2022 10.1 03/22/2022 10.1 03/27/2021 10.9 02/15/2021 11.0 History of DVT/PE Obstructive Sleep Apnea (CASSIE) Other Risk Factors Chronic UTI's Dental Disease Peripheral Vascular History Prior Infection PAST MEDICAL HISTORY Diagnosis Date Acute gastritis without mention of hemorrhage Allergic rhinitis Anaphylaxis Anemia Back pain Benign essential tremor Bipolar I disorder, most recent episode (or current) unspecified sectrum Bone mass Candidiasis, intertrigo Chronic kidney disease Contraceptive management Depression Diabetes (HCC) Diarrhea DVT, lower extremity ([facility]) 08/2014 Right leg (6) Esophagitis Facial fracture due to fall ([facility]) Fatigue Fibromyalgia Fracture Fracture of shaft of fibula GERD (gastroesophageal reflux disease) HLD (hyperlipidemia) on tricor Hyperlipidemia Hypertension Hypomagnesemia Hypopotassemia IBS (irritable bowel syndrome) Insomnia Intertrigo Knee pain Morbid obesity (HCC) 03/11/2011 Myalgia Nausea Neck pain Neuropathy Nocturnal leg cramps Non-cardiac chest pain Obesity CASSIE (obstructive sleep apnea) 07/08/2011 Other polyp of sinus Other specified anemias Personal history of unspecified urinary disorder PMH - PAST MEDICAL HISTORY OF left knee surgery x3 Pulmonary nodules Pyelonephritis, acute Restless leg Ruptured appendicitis S/P gastric bypass Snoring Type 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, not stated as uncontrolled(250.50) on oral medications and Lanuts Unspecified asthma(493.90) on inhalers Unspecified essential hypertension on medical management Upper abdominal pain Urinary frequency Vitamin D deficiency PAST SURGICAL HISTORY Procedure Laterality Date CHOLECYSTECTOMY 04/2011 COLONOSCOPY W/BIOPSY SINGLE/MULTIPLE 12/16/07 DILATION & CURETTAGE DX&/THER NONOBSTETRIC Dilation & curettage EGD TRANSORAL BIOPSY SINGLE/MULTIPLE 12/16/07 ESOPHAGOGASTRODUODENOSCOPY TRANSORAL DIAGNOSTIC age 14 EGD LAPAROSCOPIC APPENDECTOMY 05/16/11 MIDLINE INSERTION/CONSULT 07/29/2012 Lap Paul-en-Y gastric bypass PAST SURGICAL HISTORY OF age 14 left knee surgery, for dislocation PAST SURGICAL HISTORY OF age 5 warts removed PAST SURGICAL HISTORY OF 2007 laser surgery to both eyes for diabetic retinopathy PAST SURGICAL HISTORY OF 04/26/2008 Bilateral eye surgery- vitrectomy PAST SURGICAL HISTORY OF 06/2008 Left eye air fluid exchange PAST SURGICAL HISTORY OF 04/09, 07/07 retinal vitrectomies STRESS TEST 200p, 2015 Normal results TUBAL LIGATION HX ablation at the same time FAMILY HISTORY Problem Relation Age of Onset Diabetes Mother from renal disease Coronary Artery Disease Mother other (Diabetic Retinaopathy) Mother Cancer Mother uterine Stroke Mother Kidney Disease Mother Thyroid Father Thyroid Sister skin cancer Kidney Disease Sister Diabetes Sister Diabetes Sister Coronary Artery Disease Brother Diabetes Brother Coronary Artery Disease Brother Colon Cancer Other none Breast Cancer Other none Social History Tobacco Use Smoking status: Former Packs/day: 2.00 Years: 6.00 Pack years: 12.00 Types: Cigarettes Quit date: 07/31/1989 Years since quittin.8 Smokeless tobacco: Never Tobacco comments: Quit at age 24 Vaping Use Vaping Use: Never used Substance Use Topics Alcohol use: Not Currently Comment: rare Drug use: No Comment: Tried marijuana once - never used it again. ALLERGIES: Vicodin [Hydrocodone-Acetaminophen], Balsam 115, Benadryl [Diphenhydramine Hcl], Chamomile, Codeine, Lisinopril, Mold, Nsaids (Non- Steroidal Anti-Inflammatory Drug), Penicillins, Seasonal Allergies, Spider [Other], Tetracycline, and Vanilla Extract MEDICATIONS: labetalol (TRANDATE) 100 mg tablet Take 1 tablet by mouth twice daily. calcitriol (ROCALTROL) 0.25 mcg capsule Take 2 capsules by mouth once daily. omeprazole (PRILOSEC) 20 mg capsule Take 1 capsule by mouth once daily. sertraline (ZOLOFT) 50 mg tablet Take 1 tablet by mouth once daily. amitriptyline (ELAVIL) 100 mg tablet Take 1 tablet by mouth daily at bedtime. atorvastatin (LIPITOR) 40 mg tablet Take 1 tablet by mouth daily at bedtime. For cholesterol. ondansetron orally disintegrating (ZOFRAN ODT) 4 mg disintegrating tablet Take 1 tablet by mouth every 8 hours as needed for nausea/vomiting. famotidine (PEPCID) 20 mg tablet Take 1 tablet by mouth once daily as needed. (Patient not taking: Reported on 05/26/2022) TRULICITY 1.5 mg/0.5 mL pen injector INJECT 1.5 MG UNDER THE SKIN ONCE A WEEK glipiZIDE (GLUCOTROL XL) 5 mg 24 hr tablet Take 2 tablets by mouth once daily. sodium bicarbonate 650 mg tablet Take 2 tablets by mouth twice daily. pioglitazone (ACTOS) 45 mg tablet Take 1 tablet by mouth once daily. (Patient not taking: Reported on 05/26/2022) flash glucose scanning reader (FREESTYLE FESTUS 2 READER) Use to check glucose 3 times daily and continuously. 1 per year. flash glucose sensor (FREESTYLE FESTUS 2 SENSOR) kit Use to check glucose 3 times daily and continuously. Change every 14 days. 6 per 90 day supply. baclofen (LIORESAL) 10 mg tablet Take 1 tablet by mouth three times daily as needed. cholecalciferol (VITAMIN D3) 5,000 unit tab Take 5,000 Units by mouth twice daily. aspirin, enteric coated (ADULT LOW DOSE ASPIRIN) 81 mg EC tablet Take 1 tablet by mouth once daily. Kpryrhzk-Ql-Alo-Fe-FA ( VITAMIN) ORAL Tab Take 1 tablet by mouth once daily. PHYSICAL EXAM: LMP 09/20/2014 All other systems deferred. GENERAL: Appears healthy, well-nourished, no deformities. HABITUS: Normal GAIT: Antalgic to the left KNEE EXAM: Left: Alignment: Varus deformity, Partially Correctable Range of motion is 10 degrees in extension and 90 degrees of flexion. Extension La degrees Pain with ROM: Yes Effusion: Slight Tender to the palpation of Medial femoral condyle, Lateral femoral condyle, Medial joint line, and Lateral joint line Pain with patellar compression: Yes Stability: Anterior/Posterior stable and Varus/Valgus stable Hip Exam: flexion to 100+ degrees, full extension, internal/external rotation adequate, and no painwith log roll Neurovascular Status: Sensation Intact, Moves foot and ankle up & down, and 2+ dorsalis pedis DATA: Diagnostic tests reviewed for today's visit: Left knee X-Ray: Severe tri-compartmental degeneration The following conditions were addressed during the office visit today: none SIGNATURE: Dakota Rajput MD PATIENT NAME: Margareth Gonzalez DATE: June 12, 2022 TIME: 3:10 PM documented in this encounter[facility]04-10-2023 Miscellaneous Notes* Telephone Encounter - Omkar Cornejo LPN - 06/09/2022 8:53 AM EDT Patient phones requesting refills as follows: Requested Prescriptions Pending Prescriptions Disp Refills labetalol (TRANDATE) 100 mg tablet 180 tablet 3 Sig: Take 1 tablet by mouth twice daily. SHONDA 03/21/22 NOV 08/11/22 Please review and advise. Omkar Cornejo LPN documented in this [facility] History of Present illness Narrative* Goldy Hunter, - 05/26/2022 3:20 PM EDT [facility] SERVICE DATE: 05/26/2022 SERVICE TIME: 3:30 PM CHIEF COMPLAINT: Chronic kidney disease stage IV HPI: Ms. Gonzalez is a 56 year old female with a PMHx of diabetes melltius, gastric bypass surgery, bipolar disorder, hypertension, and IBS who presents with chronic kidney disease stage IV. Previously followed with Dr. Melgoza Etiology secondary to diabetic nephropathy, unrecovered SERGIO in the setting of NSAID use, and hemodynamic fluctuations during surgery 11/2020: Sodium bicarbonate 650 mg BID initiated 03/2021: No changes 06/2021: Transplant evaluation 07/2021: Fab: Vascular surgery to arrange fistula placement 11/2021: Fab: AVG once close to dialysis. Needs knee replacement prior to transplant. Established with hematology - IV iron 01/10/2022 - eGFR 15 02/04/2022 - Interested in HHD. No changes. Labs on 05/24/2022 with creatinine 4.2 and eGFR of 12 Duration (when): Years Location (where): Kidneys Severity (ex: creat 4.5, BP 200/100): CKD V Quality (ex: sharp, dull): Chronic Context (ex: activity at onset or related to condition): Surgeries, diabetes, and hypertension Timing (ex: continuous, intermittent): Continuous Modifying factors (ex: medications, interventions): Oral diabetic agents and blood pressure medications Associated signs & symptoms (ex: edema, SOB): N/A PAST MEDICAL HISTORY: ACTIVE PROBLEM LIST Acute Gastritis Obesity, Unspecified Anemia, Unspecified Background Diabetic Retinopathy (Hcc) Unspecified Asthma(493.90) Calculus of Gallbladder Without Mention of Cholecystitis Or Obstruction Bipolar Disorder, Unspecified (Hcc) Essential Hypertension Type 2 Diabetes Mellitus With Stage 4 Chronic Kidney Disease, Without Long-Term Current Use of Insulin (Hcc) Iron Deficiency Anemia, Unspecified Edema Fibromyalgia Neuropathy Vitamin D Deficiency Microalbuminuria Gerd (Gastroesophageal Reflux Disease) Proliferative Diabetic Retinopathy (Hcc) Pseudophakia Cassie (Obstructive Sleep Apnea) Other and Unspecified Postsurgical Nonabsorption Type 2 Diabetes, Controlled, With Neuropathy (Hcc) Personal History of Dvt (Deep Vein Thrombosis) Family History of Ischemic Heart Disease Hypercoagulable State (Hcc) Iron Malabsorption H/O Gastric Bypass CKD (chronic kidney disease) Stage 4, GFR 15-29 ml/min Red Blood Cell Antibody Positive Pulmonary Nodules Anemia of Renal Disease MEDICATIONS: omeprazole (PRILOSEC) 20 mg capsule Take 1 capsule by mouth once daily. sertraline (ZOLOFT) 50 mg tablet Take 1 tablet by mouth once daily. amitriptyline (ELAVIL) 100 mg tablet Take 1 tablet by mouth daily at bedtime. atorvastatin (LIPITOR) 40 mg tablet Take 1 tablet by mouth daily at bedtime. For cholesterol. ondansetron orally disintegrating (ZOFRAN ODT) 4 mg disintegrating tablet Take 1 tablet by mouth every 8 hours as needed for nausea/vomiting. famotidine (PEPCID) 20 mg tablet Take 1 tablet by mouth once daily as needed. calcitriol (ROCALTROL) 0.25 mcg capsule Take 2 capsules by mouth once daily. TRULICITY 1.5 mg/0.5 mL pen injector INJECT 1.5 MG UNDER THE SKIN ONCE A WEEK glipiZIDE (GLUCOTROL XL) 5 mg 24 hr tablet Take 2 tablets by mouth once daily. sodium bicarbonate 650 mg tablet Take 2 tablets by mouth twice daily. pioglitazone (ACTOS) 45 mg tablet Take 1 tablet by mouth once daily. flash glucose scanning reader (SimpleReachSTYLE FESTUS 2 READER) Use to check glucose 3 times daily and continuously. 1 per year. flash glucose sensor (FREESTYLE FESTUS 2 SENSOR) kit Use to check glucose 3 times daily and continuously. Change every 14 days. 6 per 90 day supply. labetalol (TRANDATE) 100 mg tablet Take 1 tablet by mouth twice daily. (Patient taking differently:Take 50 mg by mouth twice daily.) baclofen (LIORESAL) 10 mg tablet Take 1 tablet by mouth three times daily as needed. cholecalciferol (VITAMIN D3) 5,000 unit tab Take 5,000 Units by mouth twice daily. aspirin, enteric coated (ADULT LOW DOSE ASPIRIN) 81 mg EC tablet Take 1 tablet by mouth once daily. Rmzqfhzq-Wy-Mev-Fe-FA ( VITAMIN) ORAL Tab Take 1 tablet by mouth once daily. ALLERGIES: ALLERGIES Allergen Reactions Vicodin [Hydrocodon* Vomiting Balsam 115 Benadryl [Diphenhyd* Rash, Itching Chamomile Asthma attack Codeine Vomiting, Other: See Comments Lisinopril Contraindication-Medical Surgical Acute renal failure Mold Nsaids (Non-Steroid* Other: See Comments Unable to take nsaids after having gastric bypass. Penicillins Anaphylaxis Seasonal Allergies Other: See Comments Nose runs, sneezing... Spider [Other] Tetracycline Rash Vanilla Extract REVIEW OF SYSTEMS: Constitutional: No complaints Cardiovascular: No complaints Genitourinary: No complaints PHYSICAL EXAM: BP 162/89 (BP Site: Left Arm, BP Position: Sitting, BP Cuff Size: Large Adult) Pulse 106 Wt 105.5 kg (232 lb 9.6 oz) LMP 09/20/2014 BMI 36.51 kg/m Constitutional:No acute distress, Responsive, Normal habitus, and Well-nourished Neck:Trachea midline No jugular venous distension Cardiovascular:No peripheral edema Regular rate and ryhthm, normal S1 and S2, no murmurs, rubs, or gallops Respiratory:Normal respiratory effort. Lungs clear bilaterally. Abdomen:Soft, non-tender, non-distended. Normal bowel sounds. No hepatosplenomegaly. Psychiatric: Alert and oriented x self, place, time, and setting Normal mood/affect DATA: Diagnostic tests reviewed for today's visit: Glucose (mg/dL) Date Value 05/24/2022 120 03/27/2021 188 Potassium (mmol/L) Date Value 05/24/2022 5.1 03/27/2021 4.8 Sodium (mmol/L) Date Value 05/24/2022 138 03/27/2021 134 Chloride (mmol/L) Date Value 05/24/2022 105 03/27/2021 100 CO2 (mmol/L) Date Value 05/24/2022 22 03/27/2021 22 Creatinine (mg/dL) Date Value 05/24/2022 4.24 03/27/2021 2.95 BUN (mg/dL) Date Value 05/24/2022 40 03/27/2021 37 Anion Gap (mmol/L) Date Value 05/24/2022 11 03/27/2021 12 Calcium (mg/dL) Date Value 03/27/2021 8.6 Calcium, Total (mg/dL) Date Value 05/24/2022 8.9 Protein, Total (g/dL) Date Value 03/22/2022 6.0 07/20/2020 6.1 Albumin (g/dL) Date Value 05/24/2022 3.5 03/27/2021 3.5 Bilirubin, Total (mg/dL) Date Value 03/22/2022 0.3 07/20/2020 0.3 Alkaline Phosphatase (U/L) Date Value 03/22/2022 90 07/20/2020 91 AST (U/L) Date Value 03/22/2022 23 07/20/2020 18 ALT (U/L) Date Value 03/22/2022 18 07/20/2020 18 Recent Labs 12/18/21 0845 11/20/21 1441 06/26/21 1630 COLOR Straw Light Yellow Dark Yellow* CLARITY Clear Clear Turbid* UGLUC 1+* Negative Negative UBILI Negative Negative Negative UKET Negative Negative Negative SPGR 1.010 1.011 1.009 UHB 1+* Negative 1+* UPH 6.0 6.0 6.0 UPROT 2+* 1+* 2+* NITRITES Negative Negative Positive* LEUKEST 3+* 500 Brandon/mL* 3+* UWBC 6-10 /HPF* 11-25 /HPF* >25 /HPF* URBC 0-3 /HPF 0-3 /HPF 11-25 /HPF* ASSESSMENT: Ms. Gonzalez is a 56 year old female with a PMHx of diabetes melltius, gastric bypass surgery, bipolar disorder, hypertension, and IBS who presents with chronic kidney disease stage IV. Previously followed with Dr. Melgoza. Chronic kidney disease stage V - Etiology secondary to diabetic nephropathy, unrecovered SERGIO in the setting of NSAID use, and hemodynamic fluctuations during surgery Baseline creatinine 1.4 in 2011 SERGIO 06/2012 - Gastric bypass surgery SERGIO 07/02/2017 - NSAIDs - Acute left ankle pain - Creatinine steadily increasing since that time - Proteinuria present since 2008 - Currently going through transplant process. Needs a knee replacement 2. Anemia of renal disease - Followed by hematology - JENISE 3. Secondary hyperparathyroidism - PTH 361 09/2020, Vitamin D 27.1 04/2020. Calcitriol 0.5 mcg daily 4. Primary hypertension - Controlled at home - Labetalol 100 mg BID 5. Hyperlipidemia - Statin 6. Metabolic acidosis - Sodium bicarbonate supplementation PLAN: - Continue current medical management - Will help facilitate making an appointment with Dr. Valenzuela for AVF creation if labs are worse nextmonth - Interested in HHD - Renal labs every month, as ordered - Follow up in 3 months SIGNATURE: Goldy Hunter DO PATIENT NAME: Margareth Gonzalez DATE: May 26, 2022 TIME: 3:31 PM OFFICE NUMBER: [phone] CC: PRIMARY CARE PHYSICIAN: Ignacio Cheatham MD documented in this encounter[facility]03-27-2023 Instructions* Patient Instructions* Goldy Hunter DO - 05/26/2022 3:19 PM EDT Your renal disease is likely secondary to diabetic nephropathy, unrecovered SERGIO in the setting of NSAID use, and hemodynamic fluctuations during surgery. Avoid Advil, Motrin (Ibuprofen), Aleve (Naproxen), Mobic (Meloxicam), Voltaren (Diclofenac) and other pain/arthritis medications called NSAIDS. Tylenol or topical voltaren gel if necessary for pain Lab work monthly Follow up with Dr. Hunter in 3 months. General nephrology recommendations: o Tight glycemic control with A1C < 7.0 o Treat proteinuria with goal urine protein excretion < 500mg/dl o Treat metabolic acidosis and keep serum bicarbonate (CO2) > 20 o Keep serum phosphorus between 3.5-5.5mg/dl o Treat hyperlipidemia with Goal LDL <100mg/dl o Maintain a 2 gram sodium restricted diet o Avoid all nephrotoxic agents including NSAIDs, as above o MRI with gadolinium contrast is safe o Hydration advised prior to CT with iodinated contrast Please bring a complete list of your medications, the dosage and times taken - to every visit. We want to know that ALL of your concerns/needs relevant to this visit- were met today and that we have hopefully exceeded your expectations. You may receive a survey regarding your care today. If you do, please take a few minutes to fill itout and send it back. It will be greatly appreciated. documented in this encounter[facility]03-03-2023 Miscellaneous Notes* Telephone Encounter - Kaylin Carranza RN - 05/02/2022 2:57 PM EST CKD SPECIALIZED COORDINATION QUICK NOTE Provider Action/FYI Telephone call Telephone call placed to pt. My call went to [employer]. Left msg identifying myself & the reason for my call. Requested a return call @ her earliest convenience. Kaylin Carranza RN documented in this encounter[facility]02-28-2023 Miscellaneous Notes* Telephone Encounter - Karla Bush MA - 04/29/2022 9:14 AM EST Patient has been identified by name and date of : Yes Requested Prescriptions Pending Prescriptions Disp Refills omeprazole (PRILOSEC) 20 mg capsule 90 capsule 1 Sig: Take 1 capsule by mouth once daily. sertraline (ZOLOFT) 50 mg tablet 90 tablet 3 Sig: Take 1 tablet by mouth once daily. amitriptyline (ELAVIL) 100 mg tablet 90 tablet 3 Sig: Take 1 tablet by mouth daily at bedtime. RX INSTRUCTIONS: Patient aware RX will be sent to pharmacy. No need to notify patient. SHONDA 03/21/22 NOV 08/11/22 Karla Bush MA documented in this [facility]02-17-2023 Miscellaneous Notes* Telephone Encounter - Chrissy Mattie Perez LPN - 04/18/2022 2:22 PM EST Left detailed message on identified voicemail that since 12/9/22 she has been a No Show for every 2week H&H with Aranesp injection. Once again did not show for appt. Schedule at 2 pm today. Wondering if going elsewhere or if she plans on showing up for upcoming scheduled appts. Also sent copy of this message to her My chart. Chrissy Perez LPN documented in this encounter[facility]02-09-2023 History of Present illness Narrative* Reagan Riggs MD - 04/10/2022 3:05 PM EST Reagan Riggs MD Department of Orthopaedics Orthopaedics [address] [facility] [address] Dept: [phone] Dept April 10, 2022 CHIEF COMPLAINT: New and Pain of the Left Knee HPI Patient here today for left knee pain. She was last seen on 02/11/2018 OA left knee. She continues to have knee pain. New x-ray today at [facility]. ASSESSMENT: M17.32 Post-traumatic osteoarthritis of left knee (primary encounter diagnosis) M25.562, G89.29 Chronic pain of left knee E11.22, N18.4 Type 2 diabetes mellitus with stage 4 chronic kidney disease, without long-term current use of insulin ([facility]) PLAN: Patient has done a great job with her weight loss and significant improvement in her A1c. She has rather severe arthritis in the left knee and prior surgical treatment for her patella. Prior surgicalscar on the knee as well. At this point, she is a candidate for knee arthroplasty but due to the factors as noted above, would like her to get in with one of our adult reconstruction colleagues. I will forward her chart and will help get things arranged for potential surgical consultation. FOLLOW UP INSTRUCTIONS: As above Ms. Margareth Gonzalez was advised as to contrast therapies and/or to take analgesics/anti-inflammatories as needed and all contraindications were reviewed. OBJECTIVE: Ms. Margareth Gonzalez is a pleasant 56 year old in no apparent distress. Gen:LMP 09/20/2014 nl development, obese, no deformities ENT: Normocephalic, normal hearing, moist mucosa CV: Pulses:DP/PT= 2+ and symmetric, capillary refill < 2 secs, no peripheral edema/varicosities Skin: no rash, bruising or lesions. Good turgor. Psych: cooperative and appropriate, alert and oriented x 3, good mood and affect. Musculoskeletal: Prior surgical scar noted. Varus deformity that corrects to near neutral. 5 degrees lacking terminal extension and flexion of 115 or 120 degrees. IMAGING: IMPRESSION: LEFT knee osteoarthritis, severe in the medial compartment progressed since 01/01/2018. Allergist/Md: PSCKaity Transcribe Date/Time: Apr 16 2022 10:04A Dictated by : COLT HILL DO This examination was interpreted and the report reviewed and electronically signed by: COLT HILL DO on Apr 16 2022 10:08AM EST Results-Findings * * *Final Report* * * DATE OF EXAM: Apr 10 2022 1:48PM WRX [id number] - XR KNEE 4V AP/PA BOTH+LAT/BRITT LT / PROCEDURE REASON: multiple diagnoses * * * * Physician Interpretation * * * * EXAMINATION: XR KNEE 4V AP/PA BOTH+LAT/BRITT LT PATIENT/TECHNOLOGIST PROVIDED HISTORY: PT STATES PATELLA SURGERY WHEN SHE WAS 14, PAIN IN LEFT KNEE CLINICAL INFORMATION: 56 years old Female with Chronic pain of left knee TECHNIQUE: XR KNEE 4V AP/PA BOTH+LAT/BRITT LT Laterality: LEFT Number of different views (projections): 4 COMPARISON: Radiographs 01/01/2018 RESULT: Tricompartmental osteoarthritis, severe in the medial compartment with [id number] contact and moderate in the lateral and patellofemoral compartments progressed since 01/01/2018. Genu varus and lateral tibial translation. Patella baja. Small joint effusion. No fracture. Images of the RIGHT knee demonstrate a tricompartmental osteoarthritis, moderate in the medial compartment and genu varus and lateral tibial translation. Generalized osteopenia. Arteriolosclerosis. Supporting Subjective Information Below: Past Medical History: PAST MEDICAL HISTORY Diagnosis Date Acute gastritis without mention of hemorrhage Allergic rhinitis Anaphylaxis Anemia Back pain Benign essential tremor Bipolar I disorder, most recent episode (or current) unspecified sectrum Bone mass Candidiasis, intertrigo Chronic kidney disease Contraceptive management Depression Diabetes (HCC) Diarrhea DVT, lower extremity (HCC) 08/2014 Right leg (6) Esophagitis Facial fracture due to fall (HCC) Fatigue Fibromyalgia Fracture Fracture of shaft of fibula GERD (gastroesophageal reflux disease) HLD (hyperlipidemia) on tricor Hyperlipidemia Hypertension Hypomagnesemia Hypopotassemia IBS (irritable bowel syndrome) Insomnia Intertrigo Knee pain Morbid obesity (HCC) 03/11/2011 Myalgia Nausea Neck pain Neuropathy Nocturnal leg cramps Non-cardiac chest pain Obesity CASSIE (obstructive sleep apnea) 07/08/2011 Other polyp of sinus Other specified anemias Personal history of unspecified urinary disorder PMH - PAST MEDICAL HISTORY OF left knee surgery x3 Pulmonary nodules Pyelonephritis, acute Restless leg Ruptured appendicitis S/P gastric bypass Snoring Type 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, not stated as uncontrolled(250.50) on oral medications and Lanuts Unspecified asthma(493.90) on inhalers Unspecified essential hypertension on medical management Upper abdominal pain Urinary frequency Vitamin D deficiency Past Surgical History: PAST SURGICAL HISTORY Procedure Laterality Date CHOLECYSTECTOMY 04/2011 COLONOSCOPY W/BIOPSY SINGLE/MULTIPLE 12/16/07 DILATION & CURETTAGE DX&/THER NONOBSTETRIC Dilation & curettage EGD TRANSORAL BIOPSY SINGLE/MULTIPLE 12/16/07 ESOPHAGOGASTRODUODENOSCOPY TRANSORAL DIAGNOSTIC age 14 EGD LAPAROSCOPIC APPENDECTOMY 05/16/11 MIDLINE INSERTION/CONSULT 07/29/2012 Lap Paul-en-Y gastric bypass PAST SURGICAL HISTORY OF age 14 left knee surgery, for dislocation PAST SURGICAL HISTORY OF age 5 warts removed PAST SURGICAL HISTORY OF 2007 laser surgery to both eyes for diabetic retinopathy PAST SURGICAL HISTORY OF 04/26/2008 Bilateral eye surgery- vitrectomy PAST SURGICAL HISTORY OF 06/2008 Left eye air fluid exchange PAST SURGICAL HISTORY OF 04/09, 07/07 retinal vitrectomies STRESS TEST 200p, 2015 Normal results TUBAL LIGATION HX ablation at the same time Family History: FAMILY HISTORY Problem Relation Age of Onset Diabetes Mother from renal disease Coronary Artery Disease Mother other (Diabetic Retinaopathy) Mother Cancer Mother uterine Stroke Mother Kidney Disease Mother Thyroid Father Thyroid Sister skin cancer Kidney Disease Sister Diabetes Sister Diabetes Sister Coronary Artery Disease Brother Diabetes Brother Coronary Artery Disease Brother Colon Cancer Other none Breast Cancer Other none Social History: Social History Tobacco Use Smoking status: Former Packs/day: 2.00 Years: 6.00 Pack years: 12.00 Types: Cigarettes Quit date: 07/31/1989 Years since quittin.7 Smokeless tobacco: Never Tobacco comments: Quit at age 24 Vaping Use Vaping Use: Never used Substance Use Topics Alcohol use: Not Currently Comment: rare Drug use: No Comment: Tried marijuana once - never used it again. Medications: Current Outpatient Medications Medication Sig sertraline (ZOLOFT) 50 mg tablet Take 1 tablet by mouth once daily. amitriptyline (ELAVIL) 100 mg tablet Take 1 tablet by mouth daily at bedtime. atorvastatin (LIPITOR) 40 mg tablet Take 1 tablet by mouth daily at bedtime. For cholesterol. famotidine (PEPCID) 20 mg tablet Take 1 tablet by mouth once daily as needed. omeprazole (PRILOSEC) 20 mg capsule Take 1 capsule by mouth once daily. calcitriol (ROCALTROL) 0.25 mcg capsule Take 2 capsules by mouth once daily. TRULICITY 1.5 mg/0.5 mL pen injector INJECT 1.5 MG UNDER THE SKIN ONCE A WEEK glipiZIDE (GLUCOTROL XL) 5 mg 24 hr tablet Take 2 tablets by mouth once daily. sodium bicarbonate 650 mg tablet Take 2 tablets by mouth twice daily. pioglitazone (ACTOS) 45 mg tablet Take 1 tablet by mouth once daily. labetalol (TRANDATE) 100 mg tablet Take 1 tablet by mouth twice daily. (Patient taking differently:Take 50 mg by mouth twice daily.) baclofen (LIORESAL) 10 mg tablet Take 1 tablet by mouth three times daily as needed. cholecalciferol (VITAMIN D3) 5,000 unit tab Take 5,000 Units by mouth twice daily. aspirin, enteric coated (ADULT LOW DOSE ASPIRIN) 81 mg EC tablet Take 1 tablet by mouth once daily. Pouegpew-Wd-Ing-Fe-FA ( VITAMIN) ORAL Tab Take 1 tablet by mouth once daily. ondansetron orally disintegrating (ZOFRAN ODT) 4 mg disintegrating tablet Take 1 tablet by mouth every 8 hours as needed for nausea/vomiting. flash glucose scanning reader (FREESTYLE FESTUS 2 READER) Use to check glucose 3 times daily and continuously. 1 per year. flash glucose sensor (FREESTYLE FESTUS 2 SENSOR) kit Use to check glucose 3 times daily and continuously. Change every 14 days. 6 per 90 day supply. No current facility-administered medications for this visit. Allergies: Vicodin [Hydrocodone-Acetaminophen], Balsam 115, Benadryl [Diphenhydramine Hcl], Chamomile, Codeine, Lisinopril, Mold, Nsaids (Non- Steroidal Anti-Inflammatory Drug), Penicillins, Seasonal Allergies, Spider [Other], Tetracycline, and Vanilla Extract ROS: General (negative for fatigue, malaise, weight loss/gain) HEENT (negative for headache, earache, recent vision changes, sinus pain, sore throat) Respiratory (no recent shortness of breath, hemoptysis) CV (negative for chest tightness, palpitations) Musculoskeletal (see HPI) Psych (no depression, anxiety) REFERRING PHYSICIAN: Consultation requested by Dr. Cheatham for an opinion regarding left knee OA. My final recommendations will be communicated back to the requesting physician by way of shared Medical record or letter to requesting physician via US mail. Ignacio Cheatham [address] [facility] [id number] Reagan Riggs MD documented in this encounterFisher[facility]02-09-2023 History of Present illness Narrative* Jenni Cates RT(R) - 04/10/2022 1:20 PM EST Radiology Service Progress Note PATIENT NAME: Margareth Gonzalez DATE OF SERVICE: April 10, 2022 TIME: 1:49 PM PATIENT IDENTITY VERIFICATION COMPLETED USING TWO (2) IDENTIFIERS: Name and Date of confirmedby patient verbally. FALL SCREENING: Has the patient had 2 falls in the last year or 1 fall with injury or currently using an Ambulatory Assistive Device (Walker, Cane, Wheelchair, Crutches, etc.)? No PATIENT GENDER DATA: Female. status: : No status: NO. PATIENT RELEVANT IMPLANT DATA REVIEWED: Not Applicable RADIOLOGY DEPARTMENT: General X-ray: Exam(s) Completed: Lower Extremity X- Ray(s): Knee, AP / Lat / Tunne / Merchant Left and Wt. Bearing PERIPHERAL IV DATA: Not applicable SIGNED BY: RT Yojana(R) April 10, 2022 1:49 PM documented in this encounterFisher[facility]02-04-2023 Miscellaneous Notes* Telephone Encounter - Georgie Bishop MA - 04/05/2022 8:14 AM EST left instructing patient to return call to receive results. Georgie Bishop MA * Telephone Encounter - Georgie Bishop MA - 04/05/2022 8:13 AM EST ----- Message from Hever Cheema APRN.BENEFITS ADMINISTRATOR sent at 04/04/2022 10:15 AM EST ----- Urine culture did not show clear evidence of infection.It just grew normal urogenital nazanin. She may continue to take antibiotic if it has been helpful. Recommend follow up with PCP to ensure hematuria has resolved. Hever Martinez CNP documented in this encounterFisher[facility]02-02-2023 Miscellaneous Notes* Telephone Encounter - Chloe Carpenter LPN - 04/03/2022 9:10 AM EST Completed and faxed as requested. * Telephone Encounter - Ada Cheng - 04/02/2022 11:50 AM EST Patient came into office and dropped off [facility] paperwork to be completed. Placed on Dr. Donato for review, completion and signature. Needs faxed back to [phone]. Ada Cheng documented in this encounterFisher[facility]02-01-2023 History of Present illness Narrative* Kirsten Euceda PA-C - 04/02/2022 12:35 PM EST This note was created using [employer]. Luis Alberto Margareth Gonzalez is a 56 year old female. HPI Patient presents with urinary frequency, spasms, and dysuria over the past 3 days. She has had somelow back pain. She has chronic nausea, that has not changed recently. No fever. Denies significant abdominal pain. Denies blood in urine. She has history of end-stage kidney disease and diabetes. Shedid check her sugar today and was 69 this morning. Review of Systems Constitutional: Negative. HENT: Negative. Respiratory: Negative. Cardiovascular: Negative. Gastrointestinal: Negative. Genitourinary: Positive for dysuria, frequency and urgency. Negative for hematuria. Musculoskeletal: Positive for back pain. All other systems reviewed and are negative. PAST MEDICAL HISTORY Diagnosis Date Acute gastritis without mention of hemorrhage Allergic rhinitis Anaphylaxis Anemia Back pain Benign essential tremor Bipolar I disorder, most recent episode (or current) unspecified sectrum Bone mass Candidiasis, intertrigo Chronic kidney disease Contraceptive management Depression Diabetes ([facility]) Diarrhea DVT, lower extremity ([facility]) 08/2014 Right leg (6) Esophagitis Facial fracture due to fall ([facility]) Fatigue Fibromyalgia Fracture Fracture of shaft of fibula GERD (gastroesophageal reflux disease) HLD (hyperlipidemia) on tricor Hyperlipidemia Hypertension Hypomagnesemia Hypopotassemia IBS (irritable bowel syndrome) Insomnia Intertrigo Knee pain Morbid obesity ([facility]) 03/11/2011 Myalgia Nausea Neck pain Neuropathy Nocturnal leg cramps Non-cardiac chest pain Obesity CASSIE (obstructive sleep apnea) 07/08/2011 Other polyp of sinus Other specified anemias Personal history of unspecified urinary disorder PMH - PAST MEDICAL HISTORY OF left knee surgery x3 Pulmonary nodules Pyelonephritis, acute Restless leg Ruptured appendicitis S/P gastric bypass Snoring Type 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 90 tablet 3 amitriptyline (ELAVIL) 100 mg tablet Take 1 tablet by mouth daily at bedtime. 90 tablet 3 atorvastatin (LIPITOR) 40 mg tablet Take 1 tablet by mouth daily at bedtime. For cholesterol. 90 tablet 3 ondansetron orally disintegrating (ZOFRAN ODT) 4 mg disintegrating tablet Take 1 tablet by mouth every 8 hours as needed for nausea/vomiting. 12 tablet 0 famotidine (PEPCID) 20 mg tablet Take 1 tablet by mouth once daily as needed. 30 tablet 0 omeprazole (PRILOSEC) 20 mg capsule Take 1 capsule by mouth once daily. 90 capsule 1 TRULICITY 1.5 mg/0.5 mL pen injector INJECT 1.5 MG UNDER THE SKIN ONCE A WEEK 6 mL 3 sodium bicarbonate 650 mg tablet Take 2 tablets by mouth twice daily. 360 tablet 3 pioglitazone (ACTOS) 45 mg tablet Take 1 tablet by mouth once daily. 90 tablet 3 flash glucose scanning reader (FREESTYLE FESTUS 2 READER) Use to check glucose 3 times daily and continuously. 1 per year. 1 Each 0 flash glucose sensor (FREESTYLE FESTUS 2 SENSOR) kit Use to check glucose 3 times daily and continuously. Change every 14 days. 6 per 90 day supply. 6 Each 3 labetalol (TRANDATE) 100 mg tablet Take 1 tablet by mouth twice daily. (Patient taking differently:Take 50 mg by mouth twice daily.) 180 tablet 3 baclofen (LIORESAL) 10 mg tablet Take 1 tablet by mouth three times daily as needed. 30 tablet 1 cholecalciferol (VITAMIN D3) 5,000 unit tab Take 5,000 Units by mouth twice daily. aspirin, enteric coated (ADULT LOW DOSE ASPIRIN) 81 mg EC tablet Take 1 tablet by mouth once daily. Eilwcmqb-Ya-Btj-Fe-FA ( VITAMIN) ORAL Tab Take 1 tablet by mouth once daily. 0 cephALEXin (KEFLEX) 500 mg capsule Take 1 capsule by mouth twice daily for 7 days. 14 capsule 0 calcitriol (ROCALTROL) 0.25 mcg capsule Take 2 capsules by mouth once daily. 180 capsule 0 glipiZIDE (GLUCOTROL XL) 5 mg 24 hr tablet Take 2 tablets by mouth once daily. 180 tablet 3 No current facility-administered medications for this visit. PAST SURGICAL HISTORY Procedure Laterality Date CHOLECYSTECTOMY 04/2011 COLONOSCOPY W/BIOPSY SINGLE/MULTIPLE 12/16/07 DILATION & CURETTAGE DX&/THER NONOBSTETRIC Dilation & curettage EGD TRANSORAL BIOPSY SINGLE/MULTIPLE 12/16/07 ESOPHAGOGASTRODUODENOSCOPY TRANSORAL DIAGNOSTIC age 14 EGD LAPAROSCOPIC APPENDECTOMY 05/16/11 MIDLINE INSERTION/CONSULT 07/29/2012 Lap Paul-en-Y gastric bypass PAST SURGICAL HISTORY OF age 14 left knee surgery, for dislocation PAST SURGICAL HISTORY OF age 5 warts removed PAST SURGICAL HISTORY OF 2007 laser surgery to both eyes for diabetic retinopathy PAST SURGICAL HISTORY OF 04/26/2008 Bilateral eye surgery- vitrectomy PAST SURGICAL HISTORY OF 06/2008 Left eye air fluid exchange PAST SURGICAL HISTORY OF 04/09, 07/07 retinal vitrectomies STRESS TEST 200p, 2015 Normal results TUBAL LIGATION HX ablation at the same time FAMILY HISTORY Problem Relation Age of Onset Diabetes Mother from renal disease Coronary Artery Disease Mother other (Diabetic Retinaopathy) Mother Cancer Mother uterine Stroke Mother Kidney Disease Mother Thyroid Father Thyroid Sister skin cancer Kidney Disease Sister Diabetes Sister Diabetes Sister Coronary Artery Disease Brother Diabetes Brother Coronary Artery Disease Brother Colon Cancer Other none Breast Cancer Other none Social History Tobacco Use Smoking status: Former Packs/day: 2.00 Years: 6.00 Pack years: 12.00 Types: Cigarettes Quit date: 07/31/1989 Years since quittin.6 Smokeless tobacco: Never Tobacco comments: Quit at age 24 Vaping Use Vaping Use: Never used Substance Use Topics Alcohol use: Not Currently Comment: rare Drug use: No Comment: Tried marijuana once - never used it again. Objective BP 122/72 Pulse (!) 124 Temp 36.6 C (97.8 F) (Tympanic) Resp 18 Wt 104.7 kg (230 lb 12.8 oz) LMP 09/20/2014 SpO2 99% BMI 36.23 kg/m Physical Exam Vitals reviewed. Constitutional: General: She is not in acute distress. Appearance: Normal appearance. She is not ill-appearing. HENT: Head: Normocephalic and atraumatic. Cardiovascular: Rate and Rhythm: Normal rate and regular rhythm. Heart sounds: Normal heart sounds. Pulmonary: Effort: Pulmonary effort is normal. Breath sounds: Normal breath sounds. Abdominal: General: Abdomen is flat. Palpations: Abdomen is soft. Tenderness: There is no abdominal tenderness. There is no right CVA tenderness or left CVA tenderness. Skin: General: Skin is warm and dry. Neurological: Mental Status: She is alert. Assessment and Plan ASSESSMENT/PLAN: 1. Urinary frequency - ICD9: 788.41, ICD10: R35.0 acute - UA positive for brandon esterase, hematuria, proteinuria, and nitrates - Send urine for culture - Begin treatment with keflex for 7 days - UA DIP, URINE (POC) - URINE CULTURE Kirsten Euceda PA-C [facility] History of Present illness Narrative* Sarah Mann - 03/27/2022 9:52 AM EST POPULATION HEALTH NAVIGATION OUTREACH Action/FYI Pt scheduled Patient Identified by Name and : YES, via phone Outreach Outcome/Action Spoke to patient / parent / legal guardian: Patient scheduled Did you use a PCP flex slot to schedule this appointment? No Reason for Outreach Care Gap or Scheduling/Wellness visits Payer: Payor: AMY / Plan: BLUE CARD PPO OOS / Product Type: PPO / Care Gap Reviewed:: Specialty Scheduling Reminder: Reminder note to check Health Maintenance for items below Health Maintenance items due: HEPATITIS A(1 of 2 - Risk 2-dose series) Never done BP CONTROLLED (<130/80) Never done SHINGRIX VACCINE(1 of 2) Never done PNEUMOCOCCAL(2 - PCV) due on 11/30/2009 MAMMOGRAM due on 08/15/2021 DEPRESSION ASSESSMENT Never done Navigation Signature: Sarah Mann March 27, 2022 9:52 AM [facility] Miscellaneous Notes* Telephone Encounter - Jenni Muller - 03/05/2022 7:40 AM EST Left detailed message on a secured voicemail. Jenni Muller * Telephone Encounter - Sha Ray APRN.CNP - 03/05/2022 7:24 AM EST COVID-19, influenza A, and influenza B PCR test are negative. Continue supportive therapies as discussed during visit. Follow-up with PCP if symptoms are not improving. Sha Ray APRN.NOY [facility] History of Present illness Narrative* Hever Cheema APRN.NOY - 03/04/2022 2:31 PM EST Subjective Cough Associated symptoms include chills, headaches and myalgias. Pertinent negatives include no sore throat and no shortness of breath. Margareth Gonzalez is a 56 year old female who presents with 5 days of cough, sneezing, chills, body aches, headache. She had an exposure to influenza A in her family inthe past 10 days. She has been taking tylenol for symptoms. She is here today for testing and for anote for work- was unable to work today. Review of Systems Constitutional: Positive for chills. Negative for fever. HENT: Positive for congestion. Negative for sore throat. Respiratory: Positive for cough. Negative for shortness of breath. Cardiovascular: Negative. Gastrointestinal: Positive for diarrhea. Negative for nausea and vomiting. Musculoskeletal: Positive for myalgias. Neurological: Positive for headaches. BP 148/88 Pulse 84 Temp 36.8 C (98.2 F) (Tympanic) Resp 16 Wt 104.6 kg (230 lb 9.6 oz) LMP 09/20/2014 SpO2 98% BMI 36.19 kg/m PAST MEDICAL HISTORY Diagnosis Date Acute gastritis without mention of hemorrhage Allergic rhinitis Anaphylaxis Anemia Back pain Benign essential tremor Bipolar I disorder, most recent episode (or current) unspecified sectrum Bone mass Candidiasis, intertrigo Chronic kidney disease Contraceptive management Depression Diabetes ([facility]) Diarrhea DVT, lower extremity ([facility]) 08/2014 Right leg (6) Esophagitis Facial fracture due to fall ([facility]) Fatigue Fibromyalgia Fracture Fracture of shaft of fibula GERD (gastroesophageal reflux disease) HLD (hyperlipidemia) on tricor Hyperlipidemia Hypertension Hypomagnesemia Hypopotassemia IBS (irritable bowel syndrome) Insomnia Intertrigo Knee pain Morbid obesity ([facility]) 03/11/2011 Myalgia Nausea Neck pain Neuropathy Nocturnal leg cramps Non-cardiac chest pain Obesity CASSIE (obstructive sleep apnea) 07/08/2011 Other polyp of sinus Other specified anemias Personal history of unspecified urinary disorder PMH - PAST MEDICAL HISTORY OF left knee surgery x3 Pulmonary nodules Pyelonephritis, acute Restless leg Ruptured appendicitis S/P gastric bypass Snoring Type 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, not stated as uncontrolled(250.50) on oral medications and Lanuts Unspecified asthma(493.90) on inhalers Unspecified essential hypertension on medical management Upper abdominal pain Urinary frequency Vitamin D deficiency PAST SURGICAL HISTORY Procedure Laterality Date CHOLECYSTECTOMY 04/2011 COLONOSCOPY W/BIOPSY SINGLE/MULTIPLE 12/16/07 DILATION & CURETTAGE DX&/THER NONOBSTETRIC Dilation & curettage EGD TRANSORAL BIOPSY SINGLE/MULTIPLE 12/16/07 ESOPHAGOGASTRODUODENOSCOPY TRANSORAL DIAGNOSTIC age 14 EGD LAPAROSCOPIC APPENDECTOMY 05/16/11 MIDLINE INSERTION/CONSULT 07/29/2012 Lap Paul-en-Y gastric bypass PAST SURGICAL HISTORY OF age 14 left knee surgery, for dislocation PAST SURGICAL HISTORY OF age 5 warts removed PAST SURGICAL HISTORY OF 2007 laser surgery to both eyes for diabetic retinopathy PAST SURGICAL HISTORY OF 04/26/2008 Bilateral eye surgery- vitrectomy PAST SURGICAL HISTORY OF 06/2008 Left eye air fluid exchange PAST SURGICAL HISTORY OF 04/09, 07/07 retinal vitrectomies STRESS TEST 200p, 2014 Normal results TUBAL LIGATION HX ablation at the same time ALLERGIES Vicodin [Hydrocodone-Acetaminophen], Balsam 115, Benadryl [Diphenhydramine Hcl], Chamomile, Codeine, Lisinopril, Mold, Nsaids (Non- Steroidal Anti-Inflammatory Drug), Penicillins, Seasonal Allergies, Spider [Other], Tetracycline, and Vanilla Extract MEDICATIONS ondansetron orally disintegrating (ZOFRAN ODT) 4 mg disintegrating tablet Take 1 tablet by mouth every 8 hours as needed for nausea/vomiting. sertraline (ZOLOFT) 50 mg tablet Take 1 tablet by mouth once daily. amitriptyline (ELAVIL) 100 mg tablet Take 1 tablet by mouth daily at bedtime. famotidine (PEPCID) 20 mg tablet Take 1 tablet by mouth once daily as needed. omeprazole (PRILOSEC) 20 mg capsule Take 1 capsule by mouth once daily. calcitriol (ROCALTROL) 0.25 mcg capsule Take 2 capsules by mouth once daily. TRULICITY 1.5 mg/0.5 mL pen injector INJECT 1.5 MG UNDER THE SKIN ONCE A WEEK sodium bicarbonate 650 mg tablet Take 2 tablets by mouth twice daily. pioglitazone (ACTOS) 45 mg tablet Take 1 tablet by mouth once daily. flash glucose scanning reader ([employer] FESTUS 2 READER) Use to check glucose 3 times daily and continuously. 1 per year. flash glucose sensor (FREESTYLE FESTUS 2 SENSOR) kit Use to check glucose 3 times daily and continuously. Change every 14 days. 6 per 90 day supply. labetalol (TRANDATE) 100 mg tablet Take 1 tablet by mouth twice daily. (Patient taking differently:Take 50 mg by mouth twice daily.) baclofen (LIORESAL) 10 mg tablet Take 1 tablet by mouth three times daily as needed. cholecalciferol (VITAMIN D3) 5,000 unit tab Take 5,000 Units by mouth twice daily. aspirin, enteric coated (ADULT LOW DOSE ASPIRIN) 81 mg EC tablet Take 1 tablet by mouth once daily. Yvorpweh-Ws-Zhf-Fe-FA ( VITAMIN) ORAL Tab Take 1 tablet by mouth once daily. glipiZIDE (GLUCOTROL XL) 5 mg 24 hr tablet Take 2 tablets by mouth once daily. atorvastatin (LIPITOR) 40 mg tablet Take 1 tablet by mouth daily at bedtime. For cholesterol. FAMILY HISTORY Problem Relation Age of Onset Diabetes Mother from renal disease Coronary Artery Disease Mother other (Diabetic Retinaopathy) Mother Cancer Mother uterine Stroke Mother Kidney Disease Mother Thyroid Father Thyroid Sister skin cancer Kidney Disease Sister Diabetes Sister Diabetes Sister Coronary Artery Disease Brother Diabetes Brother Coronary Artery Disease Brother Colon Cancer Other none Breast Cancer Other none Social History Tobacco Use Smoking status: Former Packs/day: 2.00 Years: 6.00 Pack years: 12.00 Types: Cigarettes Quit date: 07/31/1989 Years since quittin.6 Smokeless tobacco: Never Tobacco comments: Quit at age 24 Vaping Use Vaping Use: Never used Substance Use Topics Alcohol use: Not Currently Comment: rare Drug use: No Comment: Tried marijuana once - never used it again. Objective Physical Exam Vitals and nursing note reviewed. Constitutional: General: She is not in acute distress. Appearance: She is obese. She is not toxic-appearing. HENT: Right Ear: Tympanic membrane, ear canal and external ear normal. Left Ear: Tympanic membrane, ear canal and external ear normal. Nose: Nose normal. Mouth/Throat: Mouth: Mucous membranes are moist. Pharynx: Oropharynx is clear. Uvula midline. No oropharyngeal exudate or posterior oropharyngeal erythema. Cardiovascular: Rate and Rhythm: Normal rate and regular rhythm. Heart sounds: Normal heart sounds. Pulmonary: Effort: Pulmonary effort is normal. No respiratory distress. Breath sounds: Normal breath sounds. No wheezing or rales. Musculoskeletal: Cervical back: Neck supple. Lymphadenopathy: Cervical: No cervical adenopathy. Skin: General: Skin is warm and dry. Findings: No erythema or rash. Neurological: Mental Status: She is alert. ASSESSMENT/PLAN: 1. Viral URI with cough - ICD9: 465.9, ICD10: J06.9 - Discussed viral etiology and rationale for treatment. - Symptomatic treatment with prn analgesia - Supportive care with fluids and rest - COVID WITH FLUA+B, ROUTINE - Follow-up with your PCP in 3-5 days if symptoms have not improved or sooner if symptoms worsen - Discussed red flags and need for immediate medical evaluation if any occur. - Discussed supportive care treatment with fluids, rest and analgesia. - Discussed expected course of illness Hever Cheema APRN.CNP [facility] Instructions* Patient Instructions* Hever Cheema APRN.CNP - 03/04/2022 2:30 PM EST ASSESSMENT/PLAN: 1. Viral URI with cough - ICD9: 465.9, ICD10: J06.9 - Discussed viral etiology and rationale for treatment. - Symptomatic treatment with prn analgesia - Supportive care with fluids and rest - COVID WITH FLUA+B, ROUTINE - Follow-up with your PCP in 3-5 days if symptoms have not improved or sooner if symptoms worsen - Discussed red flags and need for immediate medical evaluation if any occur. - Discussed supportive care treatment with fluids, rest and analgesia. - Discussed expected course of illness Hever Cheema APRN.CNP Treatment for Viral Upper Respiratory Tract Infections Your body will kill off the virus by itself. Additionally, you can prime your body's immune system.This may help you get better more quickly. Drink lots of fluids Make sure you are eating well Get plenty of rest We do not have any medications that kill off these viruses. Antibiotics are used to treat bacterialinfections; however, they are not active against viral infections. There are some things that mighthelp you feel better, though. Vaporizers, humidifiers, hot showers, and hot fluids help open respiratory and sinus passages [place] Nasal [place] may offer relief of nasal and head congestion Cayden's Vapor Rub may relieve congestion Tylenol and Advil help control fevers and headaches Salt water gargles help relieve sore throats Chloraceptic spray or throat lozenges may also help relieve sore throat symptoms Occasionally, viral infections turn into something more serious. You should see your doctor or return to the Urgent Care if: You have fevers for longer than five days You have fevers above 102 degrees You are still sick after 10 days You have shortness of breath or wheezing After several days you are getting worse rather than better [facility] History of Present illness Narrative* Laura Valenzuela LPN - 02/20/2022 11:[address] Gerard, Margareth was provided with Donjoy boot and gel powerstep inserts, size M and 9.5, and instructed/educated in its application, wear, and care. All questions were answered, and patient was able to demonstrate competence with the necessary skills to utilize the above equipment. Laura Valenzuela LPN * Frank Gerard - 02/20/2022 11:04 AM EST Consultation requested by Dr. Cheatham for an opinion regarding left foot pain. My final recommendations will be communicated back to the requesting physician by way of shared Medical record or letter torequesting physician via US mail. Initial Podiatric Office Visit: Chief Complaint: This 56 year old female who presents with chief complaint:left foot pain HPI Patient presents to clinic for evaluation of left foot. She developed pain to her left foot this past Thursday. She denies any injury. Patient states that in addition to the pain starting this past Thursday, she noticed bruising Patient went to urgent care and had xrays performed. Patient was subsequently referred here Patient is taking tylenol for the pain. Tylenol does help with the pain. She states the pain does shoot up to her foot. Patient is wearing surgical shoe which is helping. PAIN EVALUATION 02/20/2022 1027 Pain Level: 3 Pain Location: Foot-Left Description: Aching Duration Amount of Time: 5 Duration Units: Days Frequency: Continuous Intervention/Comfort measure: Reposition;Relaxation;Distractions Hemoglobin A1C (%) Date Value 09/21/2021 7.8 05/07/2021 9.7 10/27/2020 7.7 07/20/2020 9.8 04/21/2020 10.9 02/21/2019 8.9 07/07/2018 7.9 PCP: Ignacio Cheatham MD PAST MEDICAL HISTORY Diagnosis Date Acute gastritis without mention of hemorrhage Allergic rhinitis Anaphylaxis Anemia Back pain Benign essential tremor Bipolar I disorder, most recent episode (or current) unspecified sectrum Bone mass Candidiasis, intertrigo Chronic kidney disease Contraceptive management Depression Diabetes ([facility]) Diarrhea DVT, lower extremity ([facility]) 08/2014 Right leg (6) Esophagitis Facial fracture due to fall ([facility]) Fatigue Fibromyalgia Fracture Fracture of shaft of fibula GERD (gastroesophageal reflux disease) HLD (hyperlipidemia) on tricor Hyperlipidemia Hypertension Hypomagnesemia Hypopotassemia IBS (irritable bowel syndrome) Insomnia Intertrigo Knee pain Morbid obesity ([facility]CC) 03/11/2011 Myalgia Nausea Neck pain Neuropathy Nocturnal leg cramps Non-cardiac chest pain Obesity CASSIE (obstructive sleep apnea) 07/08/2011 Other polyp of sinus Other specified anemias Personal history of unspecified urinary disorder PMH - PAST MEDICAL HISTORY OF left knee surgery x3 Pulmonary nodules Pyelonephritis, acute Restless leg Ruptured appendicitis S/P gastric bypass Snoring Type 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, not stated as uncontrolled(250.50) on oral medications and Lanuts Unspecified asthma(493.90) on inhalers Unspecified essential hypertension on medical management Upper abdominal pain Urinary frequency Vitamin D deficiency Current Outpatient Medications Medication Sig ondansetron orally disintegrating (ZOFRAN ODT) 4 mg disintegrating tablet Take 1 tablet by mouth every 8 hours as needed for nausea/vomiting. sertraline (ZOLOFT) 50 mg tablet Take 1 tablet by mouth once daily. amitriptyline (ELAVIL) 100 mg tablet Take 1 tablet by mouth daily at bedtime. omeprazole (PRILOSEC) 20 mg capsule Take 1 capsule by mouth once daily. calcitriol (ROCALTROL) 0.25 mcg capsule Take 2 capsules by mouth once daily. TRULICITY 1.5 mg/0.5 mL pen injector INJECT 1.5 MG UNDER THE SKIN ONCE A WEEK glipiZIDE (GLUCOTROL XL) 5 mg 24 hr tablet Take 2 tablets by mouth once daily. sodium bicarbonate 650 mg tablet Take 2 tablets by mouth twice daily. pioglitazone (ACTOS) 45 mg tablet Take 1 tablet by mouth once daily. flash glucose scanning reader (SimpleReachSTYLE FESTUS 2 READER) Use to check glucose 3 times daily and continuously. 1 per year. flash glucose sensor (FREESTYLE FESTUS 2 SENSOR) kit Use to check glucose 3 times daily and continuously. Change every 14 days. 6 per 90 day supply. atorvastatin (LIPITOR) 40 mg tablet Take 1 tablet by mouth daily at bedtime. For cholesterol. labetalol (TRANDATE) 100 mg tablet Take 1 tablet by mouth twice daily. (Patient taking differently:Take 50 mg by mouth twice daily.) baclofen (LIORESAL) 10 mg tablet Take 1 tablet by mouth three times daily as needed. cholecalciferol (VITAMIN D3) 5,000 unit tab Take 5,000 Units by mouth twice daily. aspirin, enteric coated (ADULT LOW DOSE ASPIRIN) 81 mg EC tablet Take 1 tablet by mouth once daily. Ldrisaxc-At-Pdp-Fe-FA ( VITAMIN) ORAL Tab Take 1 tablet by mouth once daily. famotidine (PEPCID) 20 mg tablet Take 1 tablet by mouth once daily as needed. (Patient not taking: No sig reported) No current facility-administered medications for this visit. ALLERGIES Allergen Reactions Vicodin [Hydrocodon* Vomiting Balsam 115 Benadryl [Diphenhyd* Rash, Itching Chamomile Asthma attack Codeine Vomiting, Other: See Comments Lisinopril Contraindication-Medical Surgical Acute renal failure Mold Nsaids (Non-Steroid* Other: See Comments Unable to take nsaids after having gastric bypass. Penicillins Anaphylaxis Seasonal Allergies Other: See Comments Nose runs, sneezing... Spider [Other] Tetracycline Rash Vanilla Extract PAST SURGICAL HISTORY Procedure Laterality Date CHOLECYSTECTOMY 04/2011 COLONOSCOPY W/BIOPSY SINGLE/MULTIPLE 12/16/07 DILATION & CURETTAGE DX&/THER NONOBSTETRIC Dilation & curettage EGD TRANSORAL BIOPSY SINGLE/MULTIPLE 12/16/07 ESOPHAGOGASTRODUODENOSCOPY TRANSORAL DIAGNOSTIC age 14 EGD LAPAROSCOPIC APPENDECTOMY 05/16/11 MIDLINE INSERTION/CONSULT 07/29/2012 Lap Paul-en-Y gastric bypass PAST SURGICAL HISTORY OF age 14 left knee surgery, for dislocation PAST SURGICAL HISTORY OF age 5 warts removed PAST SURGICAL HISTORY OF 2007 laser surgery to both eyes for diabetic retinopathy PAST SURGICAL HISTORY OF 04/26/2008 Bilateral eye surgery- vitrectomy PAST SURGICAL HISTORY OF 06/2008 Left eye air fluid exchange PAST SURGICAL HISTORY OF 04/09, 07/07 retinal vitrectomies STRESS TEST 200p, 2015 Normal results TUBAL LIGATION HX ablation at the same time FAMILY HISTORY Problem Relation Age of Onset Diabetes Mother from renal disease Coronary Artery Disease Mother other (Diabetic Retinaopathy) Mother Cancer Mother uterine Stroke Mother Kidney Disease Mother Thyroid Father Thyroid Sister skin cancer Kidney Disease Sister Diabetes Sister Diabetes Sister Coronary Artery Disease Brother Diabetes Brother Coronary Artery Disease Brother Colon Cancer Other none Breast Cancer Other none Social History Tobacco Use Smoking status: Former Packs/day: 2.00 Years: 6.00 Pack years: 12.00 Types: Cigarettes Quit date: 07/31/1989 Years since quittin.5 Smokeless tobacco: Never Tobacco comments: Quit at age 24 Vaping Use Vaping Use: Never used Substance Use Topics Alcohol use: Not Currently Comment: rare Drug use: No Comment: Tried marijuana once - never used it again. REVIEW OF SYSTEMS GENERAL: Negative for Malaise, significant weight loss, fever RESPIRATORY: Negative for cough, wheezing and shortness of breath CARDIOVASCULAR: Negative for chest pain, leg swelling and palpitations GI: Negative for abdominal discomfort, blood in stools or black stools and change in bowel habits : Negative for dysuria, frequency and incontinence MUSCULOSKELETAL: Negative for joint pain or swelling, back pain, and muscle pain. SKIN: Negative for lesions, rash, and itching. HEMATOLOGY/LYMPHOLOGY Negative for prolonged bleeding, bruising easily, and swollen nodes. ENDOCRINE: Negative for cold or heat intolerance, polyuria, polydipsia and goiter. NEURO: negative Physical Exam: Constitutional: Pt is a well developed 56 year old female who is alert, oriented and cooperative Eyes: Following during examination. No redness or drainage. Respiratory: RR normal and nonlabored. Even breathing. No evidence of distress or shortness of breath. Psychology: Patient is engaged during conversation. Normal affect and mood. Does not appear depressed or anxious during encounter. Vascular: Dorsalis pedis and posterior tibial pulses palpable as b/l Capillary Fill time < 5 seconds to digits 1-5 b/l Skin temperature warm to warm proximal to distal b/l Hair growth present to digits Neurological: intact light touch/epicritic sensation Vibratory sensation decreased b/l decreased protective sensation + significant neurological deficits Dermatological: Nails 1,3-5 right and 1-5 left appear normal lenth. Right 2nd toenail is elongated and discolored. . Webspaces clean and dry 1-4 b/l. Skin appears well hydrated and supple. good color, texture, turgor. No open lesions present. Callus presnet to left 2nd toe Musculoskeletal/Orthopaedic: Patient has pain to palpation of left 3rd, 4th and 5th metatarsal shafts Foot type is neutral structurally AJ ROM is decreased with knee extended and flexed 1st MPJ is full when loaded and no pain or crepitus are noted with ROM. MTJ, STJ are full and free of pain and crepitus. +5/5 muscle strength dorsiflexion, plantarflexion, inversion, eversion b/l Temperature of right foot: 89 degrees Temperature of left foot: 83 degrees Radiographs: 3 views left foot ordered February 20, 2022: I have personally reviewed and interpreted these XR myself: no acute fracture. Calcified vessels are present ASSESSMENT: (X50.3XXA) Repetitive stress injury (primary encounter diagnosis) (E11.49) Other diabetic neurological complication associated with type 2 diabetes mellitus (HCC) (M20.42) Hammertoe of left foot (L84) Callus PLAN: 1. History and physical examination performed. 2. XR reviewed with patient and interpreted today 3. Discussed pain in left foot. She has pain in the left 3rd, 4th and 5th shafts with some bruising. No injury. I do not suspect a charcot process but I do have concerns for possible stress fracture.Will place her in boot. Discussed risk of dvt while in boot. F/u in 2 weeks. If pain still present,consider subsequent xray to evaluate for stress fracture. If she develops pain in calf, present to E D 4. Discussed callus of left 2nd toe. This is caused by hammertoe. This callus was reduced with dremmel. Diabetic shoes ordered 5. She has one dytrophic toenail, right 2nd toe. This was reduced today as courtesy. If this were bothering her, consider matrixectomy. In order to perform a complete physical exam, small triangular clipping was performed. This incidental service is integral to the evaluation and management visit in order to appropriately manage and treat the patient (for their complaint or for this visit). 6. Will check vitamin d 7. Diabetic shoes ordered 8. F/u in 2 weeks Frank Gerard DPM Podiatry [address] [facility] [address] Dept: [phone] Dept * Clare Chawla RN - 02/20/2022 10:24 AM EST AMB ROOMING INTAKE FLOWSHEET DATA Pain Pain Level: 3 Pain Location: Foot-Left Description: Aching Duration Amount of Time: 5 Duration Units: Days Frequency: Continuous Intervention/Comfort measure: Reposition, Relaxation, Distractions Patient presents with: Left Foot - New, Pain Patient presents for Left foot pain that began Thursday. States that she noticed a bruise on her foot. Pain worsens throughout the day. Was seen at urgent care 02/18, had X-ray done and was provided with a post op shoe. [facility] Instructions* Patient Instructions* Frank Gerard - 02/20/2022 11:15 AM EST Diabetes Foot Care Instructions When you have diabetes, proper foot care is very important. Poor foot care may lead to amputation of a foot or leg. As a person with diabetes, you are more vulnerable to foot problems, because diabetes can damage your nerves and reduce blood flow to your feet. Here are some diabetes foot care tips to follow: Wash and Dry Your Feet Daily Use mild soaps Use warm water Pat your skin dry; do not rub. Thoroughly dry your feet. After washing, use lotion on your feet to prevent cracking. Do not put lotion between your toes. Examine Your Feet Each Day Check the tops and bottoms of your feet. Have someone else look at your feet if you cannot see them. Check for dry, cracked skin. Look for blisters, cuts, scratches, or other sores. Check for redness, increased warmth, or tenderness when touching any area of your feet. Check for ingrown toenails, corns, and calluses. If you get a blister or sore from your shoes, do not pop it. Apply a bandage and wear a differentpair of shoes. Take Care of Your Toenails Cut toenails after bathing, when they are soft. Cut toenails straight across and smooth with a nail file. Avoid cutting into the corners of toes. Do not cut cuticles. If you have neuropathy (or decreased sensation in your feet) a warp scouring vat tender should always cut your toenails. Be Careful When Exercising Walk and exercise in comfortable shoes. Do not exercise when you have open sores on your feet. Protect Your Feet With Shoes and Socks Never go barefoot. Always protect your feet by wearing shoes or hard-soled slippers or footwear. Avoid shoes with high heels and pointed toes. Avoid shoes that expose your toes or heels (such as open-toed shoes or sandals). These types of shoes increase your risk for injury and potential infections. Try on new footwear with the type of socks you usually wear. Do not wear new shoes for more than an hour at a time. Change your socks daily. Look and feel inside your shoes before putting them on to make sure there are no foreign objects orrough areas. Avoid tight socks. Wear natural-fiber socks (cotton, wool, or a cotton-wool blend). Wear special shoes if your health care provider recommends them. Wear shoes/boots that will protect your feet from various weather conditions (cold, moisture, etc.). Make sure your shoes fit properly. If you have neuropathy (nerve damage), you may not notice that your shoes are too tight. Perform the footwear test described below. Footwear Test Use this simple test to see if your shoes fit correctly: Stand on a piece of paper. (Make sure you are standing and not sitting, because your foot changes shape when you stand.) Trace the outline of your foot. Trace the outline of your shoe. Compare the tracings: Is the shoe too narrow? Is your foot crammed into the shoe? The shoe should be at least 1/2 inch longer than your longest toe and as wide as your foot. Proper Shoe Choices The following types of shoes are best for people with diabetes Closed toes and heels Leather uppers without a seam inside At least 1/2 inch extra space at the end of your longest toe Inside of shoe should be soft with no rough areas Outer sole should be made of stiff material Shoes should be at least as wide as your feet Tips for Foot Care in Diabetes Don't wait to treat a minor foot problem if you have diabetes. Follow your health care provider's guidelines and first aid guidelines. Report foot injuries and infections to your health care provider immediately. Check water temperature with your elbow, not your foot. Do not use a heating pad on your feet. Do not cross your legs. Do not self-treat your corns, calluses, or other foot problems. Go to your health care provider or warp scouring vat tender to treat these conditions. Powerstep Original Full length. Can purchase at [employer] here in [place], [employer] in [place] or [place]. Also can find in [employer] in [facility]. Powersteps can also be purchased online, starting around $25.00 If you have a metatarsal or dancer pad for your feet apply the pad directly to the insole so you can interchange between your shoes. Find a shoe with a removable insole and take this out and replace with your powerstep insole. Always bring powersteps with you when shopping for shoes so that you can make sure that everything fits well together documented in this [facility]12-22-2022 Nurse Note* Chrissy Perez LPN - 02/20/2022 10:04 AM EST Injection deferred, parameters not met HGB 10.8 Chrissy Perez LPN documented in this [facility]12-20-2022 History of Present illness Narrative* Nakia Hernandez, RT(R) - 02/18/2022 9:20 AM EST Radiology Service Progress Note PATIENT NAME: Margareth Gonzalez DATE OF SERVICE: February 18, 2022 TIME: 9:09 AM PATIENT IDENTITY VERIFICATION COMPLETED USING TWO (2) IDENTIFIERS: Name and Date of confirmedby patient verbally. FALL SCREENING: Has the patient had 2 falls in the last year or 1 fall with injury or currently using an Ambulatory Assistive Device (Walker, Cane, Wheelchair, Crutches, etc.)? No PATIENT GENDER DATA: Female. status: : No status: NO. PATIENT RELEVANT IMPLANT DATA REVIEWED: Not Applicable RADIOLOGY DEPARTMENT: General X-ray: Exam(s) Completed: Lower Extremity X- Ray(s): Foot, Left and Wt. Bearing PERIPHERAL IV DATA: Not applicable SIGNED BY: RT Melissa(R) February 18, 2022 9:09 AM [facility] History of Present illness Narrative* Jimmy Rabago, PATRICE.BENEFITS ADMINISTRATOR - 02/18/2022 9:07 AM EST Images from the original note were not included. Subjective HPI HPI Margareth Gonzalez is a 56 year old female who presents today for CC of left foot pain, swelling, bruising. This started 1 week ago, no known injury. Has tried otc medication for relief. Symptoms are worsened by walking. Risk factors patient diabetic. .Patient presents with: Pain (foot): left x few days, unsure of injury, bruising PAST MEDICAL HISTORY Diagnosis Date Acute gastritis without mention of hemorrhage Allergic rhinitis Anaphylaxis Anemia Back pain Benign essential tremor Bipolar I disorder, most recent episode (or current) unspecified sectrum Bone mass Candidiasis, intertrigo Chronic kidney disease Contraceptive management Depression Diabetes (HCC) Diarrhea DVT, lower extremity (HCC) 08/2014 Right leg (6) Esophagitis Facial fracture due to fall (HCC) Fatigue Fibromyalgia Fracture Fracture of shaft of fibula GERD (gastroesophageal reflux disease) HLD (hyperlipidemia) on tricor Hyperlipidemia Hypertension Hypomagnesemia Hypopotassemia IBS (irritable bowel syndrome) Insomnia Intertrigo Knee pain Morbid obesity (HCC) 03/11/2011 Myalgia Nausea Neck pain Neuropathy Nocturnal leg cramps Non-cardiac chest pain Obesity CASSIE (obstructive sleep apnea) 07/08/2011 Other polyp of sinus Other specified anemias Personal history of unspecified urinary disorder PMH - PAST MEDICAL HISTORY OF left knee surgery x3 Pulmonary nodules Pyelonephritis, acute Restless leg Ruptured appendicitis S/P gastric bypass Snoring Type 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, not stated as uncontrolled(250.50) on oral medications and Lanuts Unspecified asthma(493.90) on inhalers Unspecified essential hypertension on medical management Upper abdominal pain Urinary frequency Vitamin D deficiency PAST SURGICAL HISTORY Procedure Laterality Date CHOLECYSTECTOMY 04/2011 COLONOSCOPY W/BIOPSY SINGLE/MULTIPLE 12/16/07 DILATION & CURETTAGE DX&/THER NONOBSTETRIC Dilation & curettage EGD TRANSORAL BIOPSY SINGLE/MULTIPLE 12/16/07 ESOPHAGOGASTRODUODENOSCOPY TRANSORAL DIAGNOSTIC age 14 EGD LAPAROSCOPIC APPENDECTOMY 05/16/11 MIDLINE INSERTION/CONSULT 07/29/2012 Lap Paul-en-Y gastric bypass PAST SURGICAL HISTORY OF age 14 left knee surgery, for dislocation PAST SURGICAL HISTORY OF age 5 warts removed PAST SURGICAL HISTORY OF 2007 laser surgery to both eyes for diabetic retinopathy PAST SURGICAL HISTORY OF 04/26/2008 Bilateral eye surgery- vitrectomy PAST SURGICAL HISTORY OF 06/2008 Left eye air fluid exchange PAST SURGICAL HISTORY OF 04/09, 07/07 retinal vitrectomies STRESS TEST 200p, 2015 Normal results TUBAL LIGATION HX ablation at the same time ALLERGIES Vicodin [Hydrocodone-Acetaminophen], Balsam 115, Benadryl [Diphenhydramine Hcl], Chamomile, Codeine, Lisinopril, Mold, Nsaids (Non- Steroidal Anti-Inflammatory Drug), Penicillins, Seasonal Allergies, Spider [Other], Tetracycline, and Vanilla Extract MEDICATIONS ondansetron orally disintegrating (ZOFRAN ODT) 4 mg disintegrating tablet Take 1 tablet by mouth every 8 hours as needed for nausea/vomiting. sertraline (ZOLOFT) 50 mg tablet Take 1 tablet by mouth once daily. amitriptyline (ELAVIL) 100 mg tablet Take 1 tablet by mouth daily at bedtime. omeprazole (PRILOSEC) 20 mg capsule Take 1 capsule by mouth once daily. calcitriol (ROCALTROL) 0.25 mcg capsule Take 2 capsules by mouth once daily. TRULICITY 1.5 mg/0.5 mL pen injector INJECT 1.5 MG UNDER THE SKIN ONCE A WEEK glipiZIDE (GLUCOTROL XL) 5 mg 24 hr tablet Take 2 tablets by mouth once daily. sodium bicarbonate 650 mg tablet Take 2 tablets by mouth twice daily. pioglitazone (ACTOS) 45 mg tablet Take 1 tablet by mouth once daily. flash glucose scanning reader (SimpleReachSTYLE FESTUS 2 READER) Use to check glucose 3 times daily and continuously. 1 per year. flash glucose sensor (FREESTYLE FESTUS 2 SENSOR) kit Use to check glucose 3 times daily and continuously. Change every 14 days. 6 per 90 day supply. atorvastatin (LIPITOR) 40 mg tablet Take 1 tablet by mouth daily at bedtime. For cholesterol. labetalol (TRANDATE) 100 mg tablet Take 1 tablet by mouth twice daily. (Patient taking differently:Take 50 mg by mouth twice daily.) baclofen (LIORESAL) 10 mg tablet Take 1 tablet by mouth three times daily as needed. cholecalciferol (VITAMIN D3) 5,000 unit tab Take 5,000 Units by mouth twice daily. aspirin, enteric coated (ADULT LOW DOSE ASPIRIN) 81 mg EC tablet Take 1 tablet by mouth once daily. Kwfsntko-Oa-Oxm-Fe-FA ( VITAMIN) ORAL Tab Take 1 tablet by mouth once daily. famotidine (PEPCID) 20 mg tablet Take 1 tablet by mouth once daily as needed. (Patient not taking: Reported on 02/04/2022) FAMILY HISTORY Problem Relation Age of Onset Diabetes Mother from renal disease Coronary Artery Disease Mother other (Diabetic Retinaopathy) Mother Cancer Mother uterine Stroke Mother Kidney Disease Mother Thyroid Father Thyroid Sister skin cancer Kidney Disease Sister Diabetes Sister Diabetes Sister Coronary Artery Disease Brother Diabetes Brother Coronary Artery Disease Brother Colon Cancer Other none Breast Cancer Other none Social History Tobacco Use Smoking status: Former Packs/day: 2.00 Years: 6.00 Pack years: 12.00 Types: Cigarettes Quit date: 07/31/1989 Years since quittin.5 Smokeless tobacco: Never Tobacco comments: Quit at age 24 Vaping Use Vaping Use: Never used Substance Use Topics Alcohol use: Not Currently Comment: rare Drug use: No Comment: Tried marijuana once - never used it again. ROS Objective Blood pressure 166/84, pulse 102, temperature 36.1 C (96.9 F), resp. rate 18, weight 106.6 kg (235 lb), last menstrual period 09/20/2014, SpO2 100 %. Physical Exam Constitutional: General: She is not in acute distress. Appearance: She is not toxic-appearing or diaphoretic. HENT: Head: Normocephalic and atraumatic. Cardiovascular: Pulses: Dorsalis pedis pulses are 1+ on the left side. Posterior tibial pulses are 1+ on the left side. Pulmonary: Effort: Pulmonary effort is normal. No accessory muscle usage or respiratory distress. Musculoskeletal: Feet: Neurological: Mental Status: She is alert and oriented to person, place, and time. ASSESSMENT/PLAN: 1. Foot pain, left - ICD9: 729.5, ICD10: M79.672 -no bony abnormality noted on xray -post op shoe provided -Rest, Ice, Compression, Elevation discussed -will refer to podiatry - XR FOOT GENERAL 3V AP/LAT/OBL LEFT IMPRESSION: 1. Mild degenerative changes in dorsal calcaneal enthesophyte. 2. Atherosclerotic disease. Dictated by : VIDA ROGERS MD - CONSULT TO PODIATRY Jimmy Rabago APRN.BENEFITS ADMINISTRATOR [facility] Instructions* Patient Instructions* Goldy Hunter DO - 02/04/2022 2:12 PM EST Your renal disease is likely secondary to diabetic nephropathy, unrecovered SERGIO in the setting of NSAID use, and hemodynamic fluctuations during surgery. Avoid Advil, Motrin (Ibuprofen), Aleve (Naproxen), Mobic (Meloxicam), Voltaren (Diclofenac) and other pain/arthritis medications called NSAIDS. Tylenol or topical voltaren gel if necessary for pain Lab work monthly Follow up with Dr. Hunter in 3 months. General nephrology recommendations: o Tight glycemic control with A1C < 7.0 o Treat proteinuria with goal urine protein excretion < 500mg/dl o Treat metabolic acidosis and keep serum bicarbonate (CO2) > 20 o Keep serum phosphorus between 3.5-5.5mg/dl o Treat hyperlipidemia with Goal LDL <100mg/dl o Maintain a 2 gram sodium restricted diet o Avoid all nephrotoxic agents including NSAIDs, as above o MRI with gadolinium contrast is safe o Hydration advised prior to CT with iodinated contrast Please bring a complete list of your medications, the dosage and times taken - to every visit. We want to know that ALL of your concerns/needs relevant to this visit- were met today and that we have hopefully exceeded your expectations. You may receive a survey regarding your care today. If you do, please take a few minutes to fill itout and send it back. It will be greatly appreciated. [facility] History of Present illness Narrative* Goldy Hunter DO - 02/04/2022 2:00 PM EST [facility] SERVICE DATE: 02/04/2022 SERVICE TIME: 2:18 PM CHIEF COMPLAINT: Chronic kidney disease stage IV HPI: Ms. Gonzalez is a 56 year old female with a PMHx of diabetes melltius, gastric bypass surgery, bipolar disorder, hypertension, and IBS who presents with chronic kidney disease stage IV. Previously followed with Dr. Melgoza Etiology secondary to diabetic nephropathy, unrecovered SERGIO in the setting of NSAID use, and hemodynamic fluctuations during surgery 11/2020: Sodium bicarbonate 650 mg BID initiated 03/2021: No changes 06/2021: Transplant evaluation 07/2021: Fab: Vascular surgery to arrange fistula placement 11/2021: Fab: AVG once close to dialysis. Needs knee replacement prior to transplant. Established with hematology - IV iron 01/10/2022 - eGFR 15 Blood pressures at home ~130/85 Duration (when): Years Location (where): Kidneys Severity (ex: creat 4.5, BP 200/100): CKD IV/V Quality (ex: sharp, dull): Chronic Context (ex: activity at onset or related to condition): Surgeries, diabetes, and hypertension Timing (ex: continuous, intermittent): Continuous Modifying factors (ex: medications, interventions): Oral diabetic agents and blood pressure medications Associated signs & symptoms (ex: edema, SOB): N/A PAST MEDICAL HISTORY: ACTIVE PROBLEM LIST Acute Gastritis Obesity, Unspecified Anemia, Unspecified Background Diabetic Retinopathy (Hcc) Unspecified Asthma(493.90) Calculus of Gallbladder Without Mention of Cholecystitis Or Obstruction Bipolar Disorder, Unspecified (Hcc) Essential Hypertension Type 2 Diabetes Mellitus With Stage 4 Chronic Kidney Disease, Without Long-Term Current Use of Insulin (Hcc) Iron Deficiency Anemia, Unspecified Edema Fibromyalgia Neuropathy Vitamin D Deficiency Microalbuminuria Gerd (Gastroesophageal Reflux Disease) Proliferative Diabetic Retinopathy (Hcc) Pseudophakia Cassie (Obstructive Sleep Apnea) Other and Unspecified Postsurgical Nonabsorption Type 2 Diabetes, Controlled, With Neuropathy (Hcc) Personal History of Dvt (Deep Vein Thrombosis) Family History of Ischemic Heart Disease Hypercoagulable State (Hcc) Iron Malabsorption H/O Gastric Bypass CKD (chronic kidney disease) Stage 4, GFR 15-29 ml/min Red Blood Cell Antibody Positive Pulmonary Nodules Anemia of Renal Disease MEDICATIONS: sertraline (ZOLOFT) 50 mg tablet Take 1 tablet by mouth once daily. amitriptyline (ELAVIL) 100 mg tablet Take 1 tablet by mouth daily at bedtime. famotidine (PEPCID) 20 mg tablet Take 1 tablet by mouth once daily as needed. omeprazole (PRILOSEC) 20 mg capsule Take 1 capsule by mouth once daily. calcitriol (ROCALTROL) 0.25 mcg capsule Take 2 capsules by mouth once daily. TRULICITY 1.5 mg/0.5 mL pen injector INJECT 1.5 MG UNDER THE SKIN ONCE A WEEK glipiZIDE (GLUCOTROL XL) 5 mg 24 hr tablet Take 2 tablets by mouth once daily. sodium bicarbonate 650 mg tablet Take 2 tablets by mouth twice daily. pioglitazone (ACTOS) 45 mg tablet Take 1 tablet by mouth once daily. flash glucose scanning reader (FREESTYLE FESTUS 2 READER) Use to check glucose 3 times daily and continuously. 1 per year. flash glucose sensor (FREESTYLE FESTUS 2 SENSOR) kit Use to check glucose 3 times daily and continuously. Change every 14 days. 6 per 90 day supply. atorvastatin (LIPITOR) 40 mg tablet Take 1 tablet by mouth daily at bedtime. For cholesterol. labetalol (TRANDATE) 100 mg tablet Take 1 tablet by mouth twice daily. (Patient taking differently:Take 50 mg by mouth twice daily.) ondansetron orally disintegrating (ZOFRAN ODT) 4 mg disintegrating tablet Take 1 tablet by mouth every 8 hours as needed for nausea/vomiting. baclofen (LIORESAL) 10 mg tablet Take 1 tablet by mouth three times daily as needed. cholecalciferol (VITAMIN D3) 5,000 unit tab Take 5,000 Units by mouth twice daily. aspirin, enteric coated (ADULT LOW DOSE ASPIRIN) 81 mg EC tablet Take 1 tablet by mouth once daily. Ceveqsvr-Bi-Chj-Fe-FA ( VITAMIN) ORAL Tab Take 1 tablet by mouth once daily. ALLERGIES: ALLERGIES Allergen Reactions Vicodin [Hydrocodon* Vomiting Balsam 115 Benadryl [Diphenhyd* Rash, Itching Chamomile Asthma attack Codeine Vomiting, Other: See Comments Lisinopril Contraindication-Medical Surgical Acute renal failure Mold Nsaids (Non-Steroid* Other: See Comments Unable to take nsaids after having gastric bypass. Penicillins Anaphylaxis Seasonal Allergies Other: See Comments Nose runs, sneezing... Spider [Other] Tetracycline Rash Vanilla Extract REVIEW OF SYSTEMS: Constitutional: No complaints Cardiovascular: No complaints Genitourinary: No complaints PHYSICAL EXAM: BP 180/91 (BP Site: Right Arm, BP Position: Sitting, BP Cuff Size: Large Adult) Pulse 97 Ht 170 cm (5' 6.93) Wt 105.5 kg (232 lb 9.4 oz) LMP 09/20/2014 BMI 36.51 kg/m Constitutional:No acute distress, Responsive, Normal habitus, and Well-nourished Neck:Trachea midline No jugular venous distension Cardiovascular:No peripheral edema Regular rate and ryhthm, normal S1 and S2, no murmurs, rubs, or gallops Respiratory:Normal respiratory effort. Lungs clear bilaterally. Abdomen:Soft, non-tender, non-distended. Normal bowel sounds. No hepatosplenomegaly. Psychiatric: Alert and oriented x self, place, time, and setting Normal mood/affect DATA: Diagnostic tests reviewed for today's visit: Glucose (mg/dL) Date Value 01/10/2022 304 03/27/2021 188 Potassium (mmol/L) Date Value 01/10/2022 4.2 03/27/2021 4.8 Sodium (mmol/L) Date Value 01/10/2022 133 03/27/2021 134 Chloride (mmol/L) Date Value 01/10/2022 100 03/27/2021 100 CO2 (mmol/L) Date Value 01/10/2022 22 03/27/2021 22 Creatinine (mg/dL) Date Value 01/10/2022 3.53 03/27/2021 2.95 BUN (mg/dL) Date Value 01/10/2022 32 03/27/2021 37 Anion Gap (mmol/L) Date Value 01/10/2022 11 03/27/2021 12 Calcium (mg/dL) Date Value 03/27/2021 8.6 Calcium, Total (mg/dL) Date Value 01/10/2022 8.7 Protein, Total (g/dL) Date Value 07/03/2021 6.5 07/20/2020 6.1 Albumin (g/dL) Date Value 01/10/2022 3.9 03/27/2021 3.5 Bilirubin, Total (mg/dL) Date Value 07/03/2021 0.3 07/20/2020 0.3 Alkaline Phosphatase (U/L) Date Value 07/03/2021 89 07/20/2020 91 AST (U/L) Date Value 07/03/2021 19 07/20/2020 18 ALT (U/L) Date Value 07/03/2021 19 07/20/2020 18 Recent Labs 12/18/21 0845 11/20/21 1441 06/26/21 1630 COLOR Straw Light Yellow Dark Yellow* CLARITY Clear Clear Turbid* UGLUC 1+* Negative Negative UBILI Negative Negative Negative UKET Negative Negative Negative SPGR 1.010 1.011 1.009 UHB 1+* Negative 1+* UPH 6.0 6.0 6.0 UPROT 2+* 1+* 2+* NITRITES Negative Negative Positive* LEUKEST 3+* 500 Brandon/mL* 3+* UWBC 6-10 /HPF* 11-25 /HPF* >25 /HPF* URBC 0-3 /HPF 0-3 /HPF 11-25 /HPF* ASSESSMENT: Ms. Gonzlaez is a 56 year old female with a PMHx of diabetes melltius, gastric bypass surgery, bipolar disorder, hypertension, and IBS who presents with chronic kidney disease stage IV. Previously followed with Dr. Melgoza. Chronic kidney disease stage IV - Etiology secondary to diabetic nephropathy, unrecovered SERGIO in the setting of NSAID use, and hemodynamic fluctuations during surgery Baseline creatinine 1.4 in 2012 SERGIO 06/2012 - Gastric bypass surgery SERGIO 07/02/2017 - NSAIDs - Acute left ankle pain - Creatinine steadily increasing since that time - Proteinuria present since 2008 - US kidney/bladder ordered on 07/20/2020, not yet performed - Last hemoglobin A1C 7.7. 10.9 in 04/2020 2. Anemia of renal disease - Followed by hematology - JENISE 3. Secondary hyperparathyroidism - PTH 361 09/2020, Vitamin D 27.1 04/2020 4. Primary hypertension - Controlled at home - Labetalol 100 mg BID 5. Hyperlipidemia - Statin 6. Metabolic acidosis - Sodium bicarbonate supplementation PLAN: - Continue current medical management - Interested in HHD - Renal labs every month, as ordered - Follow up in 3 months SIGNATURE: Goldy Hunter DO PATIENT NAME: Margareth Gonzalez DATE: February 04, 2022 TIME: 2:18 PM OFFICE NUMBER: [phone] CC: PRIMARY CARE PHYSICIAN: Ignacio Cheatham MD documented in this [facility]11-25-2022 Nurse Note* Veronica Atkinson LPN - 01/24/2022 2:57 PM EST Retacrit injection deferred. Pt did not meet treatment parameters. Hgb 10.3 Veronica Atkinson LPN documented in this [facility]10-25-2022 Miscellaneous Notes* Telephone Encounter - Kaylin Carranza - 12/24/2021 12:25 PM EDT Telephone call placed to pt. She did not answer my call. Left voicemail requesting a return call. Kaylin Carranza RN documented in this [facility]10-20-2022 Miscellaneous Notes* Telephone Encounter - Lizzy Marie - 12/19/2021 11:29 AM EDT Pt scheduled as directed and Iron start e-mail sent. When PT returns call please inform her of her first Iron treatment. Thank you! Lizzy Marie * Telephone Encounter - Latoya Blair LPN - 12/19/2021 10:48 AM EDT Left message for patient to contact office. Patient was aware yesterday that we were awaiting iron studies. Patient has not started retacrit, iron saturation needs to be >20% to begin retacrit. Latoya Blair LPN * Telephone Encounter - Teagan Spencer MD - 12/19/2021 8:35 AM EDT Schedule iron sucrose 200 mg IV x 5 starting next week. Monitor H&H every 2 weeks and repeat iron study in 4 weeks. Hold Procrit/Retacrit until iron saturations greater than 20% Teagan Spencer MD [facility] History and physical note * Teagan Spencer MD - 12/18/2021 9:48 AM EDT Hematology and Medical Oncology PATIENT NAME: Margareth Gonzalez. CLINIC NO: [id number]. ATTENDING PHYSICIAN: Teagan Spencer MD. DATE OF SERVICE:12/18/2021. DIAGNOSIS: Chronic anemia; stage 4 chronic kidney failure, history of iron deficiency anemia; status post gastric bypass. Consultation requested by Fab Cochran APRN.BENEFITS ADMINISTRATOR for an opinion regarding anemia. My final recommendations will be communicated back to the requesting physician by way of shared Medical record or letter to requesting physician via US mail. PERFORMANCE STATUS:80% HPI: 56-year-old lady with end-stage renal disease not on hemodialysis who presented with chronic anemia. She also has a history of iron deficiency anemia after gastric bypass. Despite her anemia, she had not had a blood transfusion for over 10 years. She currently is on a vitamin with iron but no iron supplements. She had seen vascular surgery for AV access as well as evaluation for renal transplant. She has chronic fatigue and increased lethargy. No frequent headaches, but she has occasional dizziness and lightheadedness. She denies chest pain, shortness of breath or palpitation. She has cold intolerance. She is still able to perform ADLs, and work at home. She had restless leg symptoms and peripheral neuropathy. She noted no change in bowel habit, unexplained weight loss or weight gain. No family history of anemia. She does not drink alcohol, and quit smoking 30 years ago. MEDICATIONS: Current Outpatient Medications Medication Sig omeprazole (PRILOSEC) 20 mg capsule Take 1 capsule by mouth once daily. calcitriol (ROCALTROL) 0.25 mcg capsule Take 2 capsules by mouth once daily. TRULICITY 1.5 mg/0.5 mL pen injector INJECT 1.5 MG UNDER THE SKIN ONCE A WEEK glipiZIDE (GLUCOTROL XL) 5 mg 24 hr tablet Take 2 tablets by mouth once daily. phenazopyridine (PYRIDIUM) 200 mg tablet Take 1 tablet by mouth three times daily as needed. sodium bicarbonate 650 mg tablet Take 2 tablets by mouth twice daily. pioglitazone (ACTOS) 45 mg tablet Take 1 tablet by mouth once daily. sertraline (ZOLOFT) 50 mg tablet Take 1 tablet by mouth once daily. atorvastatin (LIPITOR) 40 mg tablet Take 1 tablet by mouth daily at bedtime. For cholesterol. labetalol (TRANDATE) 100 mg tablet Take 1 tablet by mouth twice daily. (Patient taking differently:Take 50 mg by mouth twice daily.) famotidine (PEPCID) 20 mg tablet Take 1 tablet by mouth every other day. (Patient taking differently: Take 20 mg by mouth as needed.) ondansetron orally disintegrating (ZOFRAN ODT) 4 mg disintegrating tablet Take 1 tablet by mouth every 8 hours as needed for nausea/vomiting. amitriptyline (ELAVIL) 100 mg tablet Take 1 tablet by mouth daily at bedtime. baclofen (LIORESAL) 10 mg tablet Take 1 tablet by mouth three times daily as needed. cholecalciferol (VITAMIN D3) 5,000 unit tab Take 5,000 Units by mouth twice daily. aspirin, enteric coated (ADULT LOW DOSE ASPIRIN) 81 mg EC tablet Take 1 tablet by mouth once daily. Riusyzml-Rh-Fho-Fe-FA ( VITAMIN) ORAL Tab Take 1 tablet by mouth once daily. flash glucose scanning reader (SimpleReachSTYLE FESTUS 2 READER) Use to check glucose 3 times daily and continuously. 1 per year. flash glucose sensor (FREESTYLE FESTUS 2 SENSOR) kit Use to check glucose 3 times daily and continuously. Change every 14 days. 6 per 90 day supply. No current facility-administered medications for this visit. . ALLERGIES: ALLERGIES Allergen Reactions Vicodin [Hydrocodon* Vomiting Balsam 115 Benadryl [Diphenhyd* Rash, Itching Chamomile Asthma attack Codeine Vomiting, Other: See Comments Lisinopril Contraindication-Medical Surgical Acute renal failure Mold Nsaids (Non-Steroid* Other: See Comments Unable to take nsaids after having gastric bypass. Penicillins Anaphylaxis Seasonal Allergies Other: See Comments Nose runs, sneezing... Spider [Other] Tetracycline Rash Vanilla Extract . PAST MEDICAL HISTORY: PAST MEDICAL HISTORY Diagnosis Date Acute gastritis without mention of hemorrhage Allergic rhinitis Anaphylaxis Anemia Back pain Benign essential tremor Bipolar I disorder, most recent episode (or current) unspecified sectrum Bone mass Candidiasis, intertrigo Chronic kidney disease Contraceptive management Depression Diabetes (HCC) Diarrhea DVT, lower extremity (HCC) 08/2014 Right leg (6) Esophagitis Facial fracture due to fall ([facility]) Fatigue Fibromyalgia Fracture Fracture of shaft of fibula GERD (gastroesophageal reflux disease) HLD (hyperlipidemia) on tricor Hyperlipidemia Hypertension Hypomagnesemia Hypopotassemia IBS (irritable bowel syndrome) Insomnia Intertrigo Knee pain Morbid obesity (HCC) 03/11/2011 Myalgia Nausea Neck pain Neuropathy Nocturnal leg cramps Non-cardiac chest pain Obesity CASSIE (obstructive sleep apnea) 07/08/2011 Other polyp of sinus Other specified anemias Personal history of unspecified urinary disorder PMH - PAST MEDICAL HISTORY OF left knee surgery x3 Pulmonary nodules Pyelonephritis, acute Restless leg Ruptured appendicitis S/P gastric bypass Snoring Type 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, not stated as uncontrolled(250.50) on oral medications and Lanuts Unspecified asthma(493.90) on inhalers Unspecified essential hypertension on medical management Upper abdominal pain Urinary frequency Vitamin D deficiency . PAST SURGICAL HISTORY: PAST SURGICAL HISTORY Procedure Laterality Date CHOLECYSTECTOMY 04/2011 COLONOSCOPY W/BIOPSY SINGLE/MULTIPLE 12/16/07 DILATION & CURETTAGE DX&/THER NONOBSTETRIC Dilation & curettage EGD TRANSORAL BIOPSY SINGLE/MULTIPLE 12/16/07 ESOPHAGOGASTRODUODENOSCOPY TRANSORAL DIAGNOSTIC age 14 EGD LAPAROSCOPIC APPENDECTOMY 05/16/11 MIDLINE INSERTION/CONSULT 07/29/2012 Lap Paul-en-Y gastric bypass PAST SURGICAL HISTORY OF age 14 left knee surgery, for dislocation PAST SURGICAL HISTORY OF age 5 warts removed PAST SURGICAL HISTORY OF 2007 laser surgery to both eyes for diabetic retinopathy PAST SURGICAL HISTORY OF 04/26/2008 Bilateral eye surgery- vitrectomy PAST SURGICAL HISTORY OF 06/2008 Left eye air fluid exchange PAST SURGICAL HISTORY OF 04/09, 07/07 retinal vitrectomies STRESS TEST 200p, 2015 Normal results TUBAL LIGATION HX ablation at the same time . FAMILY HISTORY: FAMILY HISTORY Problem Relation Age of Onset Diabetes Mother from renal disease Coronary Artery Disease Mother other (Diabetic Retinaopathy) Mother Cancer Mother uterine Stroke Mother Kidney Disease Mother Thyroid Father Thyroid Sister skin cancer Kidney Disease Sister Diabetes Sister Diabetes Sister Coronary Artery Disease Brother Diabetes Brother Coronary Artery Disease Brother Colon Cancer Other none Breast Cancer Other none . SOCIAL HISTORY: Social History Tobacco Use Smoking status: Former Packs/day: 2.00 Years: 6.00 Pack years: 12.00 Types: Cigarettes Quit date: 07/31/1989 Years since quittin.4 Smokeless tobacco: Never Tobacco comments: Quit at age 24 Vaping Use Vaping Use: Never used Substance Use Topics Alcohol use: Not Currently Comment: rare Drug use: No Comment: Tried marijuana once - never used it again. . REVIEW OF SYSTEMS: CONSTITUTIONAL: No fevers, chills, nightsweats, unintended weight loss + fatigue HEENT: Denies frequent or severe heaches, nasal congestion/sinus symptoms, problematic allergy problems. EYES: No diplopia or blurry vision. CARDIOVASCULAR: No chest pain, dyspnea, palpitations, orthopnea, PND, ankle edema. PULM: No dyspnea, unexplained cough. GI: No dysphagia/odynophagia, problematic reflux, constipation, diarrhea, changes in stool habits, hematochezia, melena. : No new urinary complaints, including dysuria, gross hematuria or pyuria. NEURO: No new balance problems, peripheral weakness/paresthesias or numbness of concern. MUSC-SKEL: No new joint pain, swelling, or erythema. PSY: No concerns regarding depression, anxiety or panic. INTEGUMENTARY: No new skin changes (rash, new or changing mole, new growth) PHYSICAL EXAMINATION: BP 187/88 Pulse 94 Temp 97.2 Ht 5' 6.929 (1.70m) Wt 232 lb 8 oz (105.5kg) SpO2 100% LMP 09/20/2014 BMI 36.49 kg/(m^2). HEENT: Head is normocephalic, atraumatic. Sclerae white, conjunctivae pink. PEERL. EOMs are intact.Oropharynx is benign. + pallor LYMPHATICS: There is no palpable adenopathy in the neck, supraclavicular region, axillae, or groin. LUNGS: Lungs are clear to percussion and auscultation. HEART: Heart is normal without murmurs, gallops, or rubs. ABDOMEN: Soft and nontender without organomegaly. No masses can be palpated. EXTREMITIES: Are without edema. NEUROLOGIC: Exam is physiologic LABORATORY DATA: Component Latest Ref Rng & Units 12/18/2021 WBC 3.70 - 11.00 k/uL 4.56 RBC 3.90 - 5.20 m/uL 3.06 (L) Hemoglobin 11.5 - 15.5 g/dL 9.4 (L) Hematocrit 36.0 - 46.0 % 29.6 (L) MCV 80.0 - 100.0 fL 96.7 MCH 26.0 - 34.0 pg 30.7 MCHC 30.5 - 36.0 g/dL 31.8 RDW-CV 11.5 - 15.0 % 13.0 Platelet Count 150 - 400 k/uL 184 MPV 9.0 - 12.7 fL 9.2 Component Latest Ref Rng & Units 12/18/2021 Iron 41 - 186 ug/dL 50 TIBC 232 - 386 ug/dL 309 Transferrin Saturation 15.0 - 57.0 % 16.2 PTH, Intact 15 - 65 pg/mL 284 (H) Ferritin 14.7 - 205.1 ng/mL 39.7 Vitamin B12 232 - 1,245 pg/mL 573 Folate >4.7 ng/mL 16.0 Component Latest Ref Rng & Units 12/18/2021 Albumin 3.9 - 4.9 g/dL 3.9 Calcium 8.5 - 10.2 mg/dL 8.8 Phosphorus 2.7 - 4.8 mg/dL 4.3 Glucose 74 - 99 mg/dL 110 (H) BUN 7 - 21 mg/dL 28 (H) Creatinine 0.58 - 0.96 mg/dL 3.47 (H) Sodium 136 - 144 mmol/L 139 Potassium 3.7 - 5.1 mmol/L 4.8 Chloride 97 - 105 mmol/L 105 CO2 22 - 30 mmol/L 23 Anion Gap 9 - 18 mmol/L 11 eGFR >=60 mL/min/1.73m 15 (L) ASSESSMENT: 56-year-old lady with history of chronic renal failure, anemia of chronic disease and iron deficiency after gastric bypass. She has moderate anemia with symptoms of fatigue. PLAN: -Awaiting iron study, vitamin B12 and folic acid from today. -Consider starting erythropoietin replacement therapy for anemia secondary to chronic renal failureif her iron study is normal. Procrit/Retacrit 10,000 Unit sq every 14 days for hemoglobin less than10.0 gm/dL -Monitor H&H every 14 days -Continue multivitamins and iron supplement -Follow-up with PCP and nephrology for management of hypertension. -Repeat CBC, BMP, iron study & office visit in 4 months I spent 45 minutes in the visit, with more than 50% of the total [id number]-pt-[id number] time of the visit in counseling / coordination of care. Teagan Spencer MD. ELECTRONICALLY SIGNED Cc: Ignacio Cheatham MD [facility] Instructions* Patient Instructions* Fab Cochran APRN.BENEFITS ADMINISTRATOR - 12/05/2021 1:59 PM EDT PLAN: -Hematology consult to help increase red blood cell count and decrease anemia. Please get the labs done prior -Please increase calcitriol to 0.5mcg daily -Please get labs drawn monthly. Standing orders have been placed -Kaesu [phone] Marly -Please go to ER if you have increased itching, hiccups, metallic taste, nausea, vomiting, increasefatigue, confusion or not making urine -Discussed need for continued good diabetes, blood pressure and cholesterol control -Recommend BP goal of 130/80 or less. Please contact the office if your blood pressure is less [id number] or higher than 160/90 -Recommend continued HgbA1c of 7 or less as CKD goal. -Follow low salt diet. (1/2 tsp salt) <2 grams -Please watch your protein intake and limit it to 3 ounces of protein per meal (70 or so grams per day) -please limit fluid intake to no more than 48-60 oz per day -Please avoid Advil, Ibuprofen(Motrin), Aleve(Naproxen), Meloxicam(Mobic), diclofenac and other pain/arthritis medications called NSAIDS. It is ok to take acetaminophen (Tylenol) for pain as needed -Please avoid contrast dye with imaging. If a provider wants to order CT or MRI with contrast, please let them know you have decreased kidney function. -Increase activity as tolerated. RTC [address] Hunter- continue with monthly labs Please bring a complete list of your medications, the dosage and times taken - to every visit. Please contact me by phone or via My Chart for any questions or concerns. We want to know that ALL of your concerns/needs relevant to this visit- were met today and that we have hopefully exceeded your expectations. If not-please let us know how we can improve our service to you by calling [phone] You may be receiving a survey regarding your care today. If you do, please take a few minutes to fill it out and send it back. It would be greatly appreciated. [facility] History of Present illness Narrative* Fab Cochran APRN.CNP - 12/05/2021 1:00 PM EDT [facility] DEPARTMENT OF KIDNEY MEDICINE CHIEF COMPLAINT: Follow up for CKD follow up. Data copied from my previous encounters and was imported as a reference for the current encounter. All information in this note has been verified. Data or information that hasn't changed was retainedfrom previous notes and the rest was revised or updated where relevant. HPI: Pt is an 56 year old female being seen today in FU for CKD4/5 with proteinuria likely in the setting of diabetic nephropathy and unrecovered SERGIO related to NSAID use and hemodynamic fluctuationsduring past surgeries. PMH: gastric bypass, HTN, anemia, bipolar disorder, fibromyalgia, GERD, IBS,CASSIE and vitamin D deficiency. Last seen by myself 08/01/[address] Hunter 03/29/21 On 08/01/21 increased sodium bicarb to 1300mg and added calcitriol Since last visit did see vascular Dr Valeznuela who recommend AVG once close to dialysis. Had mild Covidin Sep 2021 Feels pretty good today BPs at home 125-130/60-84, but has gone as low as 98/42. BP much higher in the office which she believes is white coat Blood sugars at home 140 average. Now has continuous glucose monitor Medication adherence is great Avoids NSAIDS Follows low salt diet Last visit w pulmonology 10/28/21 Endo 10/02/21 PCP 09/14/21 Vascular surgery 08/26/21 Acceptable candidate for transplant per [facility] team on 07/03/21, but will need knee replacement first, as well as pap and mammogram. Mammogram has been scheduled. Awaiting dental approval. Hepatitis and HIV testing completed 07/03/21 Completed dialysis education and would like home hemo. Waiting on new cpap machine Drinking more than 60oz fluid per day up to over 100oz. Mostly soda and some water. 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 Problem List Reviewed PAST MEDICAL HISTORY Diagnosis Date Acute gastritis without mention of hemorrhage Allergic rhinitis Anaphylaxis Anemia Back pain Benign essential tremor Bipolar I disorder, most recent episode (or current) unspecified sectrum Bone mass Candidiasis, intertrigo Chronic kidney disease Contraceptive management Depression Diabetes (HCC) Diarrhea DVT, lower extremity (HCC) 08/2014 Right leg (6) Esophagitis Facial fracture due to fall (HCC) Fatigue Fibromyalgia Fracture Fracture of shaft of fibula GERD (gastroesophageal reflux disease) HLD (hyperlipidemia) on tricor Hyperlipidemia Hypertension Hypomagnesemia Hypopotassemia IBS (irritable bowel syndrome) Insomnia Intertrigo Knee pain Morbid obesity (HCC) 03/11/2011 Myalgia Nausea Neck pain Neuropathy Nocturnal leg cramps Non-cardiac chest pain Obesity CASSIE (obstructive sleep apnea) 07/08/2011 Other polyp of sinus Other specified anemias Personal history of unspecified urinary disorder PMH - PAST MEDICAL HISTORY OF left knee surgery x3 Pulmonary nodules Pyelonephritis, acute Restless leg Ruptured appendicitis S/P gastric bypass Snoring Type 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, not stated as uncontrolled(250.50) on oral medications and Lanuts Unspecified asthma(493.90) on inhalers Unspecified essential hypertension on medical management Upper abdominal pain Urinary frequency Vitamin D deficiency Current Outpatient Medications on File Prior to Visit Medication Sig pioglitazone (ACTOS) 45 mg tablet Take 1 tablet by mouth once daily. flash glucose scanning reader (SimpleReachSTYLE FESTUS 2 READER) Use to check glucose 3 times daily and continuously. 1 per year. flash glucose sensor (FREESTYLE FESTUS 2 SENSOR) kit Use to check glucose 3 times daily and continuously. Change every 14 days. 6 per 90 day supply. dulaglutide (TRULICITY) 1.5 mg/0.5 mL pen injector Inject 1.5 mg subcutaneously one time a week. sertraline (ZOLOFT) 50 mg tablet Take 1 tablet by mouth once daily. glipiZIDE (GLUCOTROL) 10 mg tablet Take 1 tablet by mouth once daily. omeprazole (PRILOSEC) 20 mg capsule Take 1 capsule by mouth once daily. sodium bicarbonate 650 mg tablet Take 1 tablet by mouth twice daily. atorvastatin (LIPITOR) 40 mg tablet Take 1 tablet by mouth daily at bedtime. For cholesterol. labetalol (TRANDATE) 100 mg tablet Take 1 tablet by mouth twice daily. famotidine (PEPCID) 20 mg tablet Take 1 tablet by mouth every other day. ondansetron orally disintegrating (ZOFRAN ODT) 4 mg disintegrating tablet Take 1 tablet by mouth every 8 hours as needed for nausea/vomiting. amitriptyline (ELAVIL) 100 mg tablet Take 1 tablet by mouth daily at bedtime. baclofen (LIORESAL) 10 mg tablet Take 1 tablet by mouth three times daily as needed. Lancets lancets Test Two times a day. Insulin Dep? No E11.9 DM 2 cholecalciferol (VITAMIN D-3) 5,000 unit tab Take 5,000 Units by mouth twice daily. aspirin, enteric coated (ADULT LOW DOSE ASPIRIN) 81 mg EC tablet Take 1 tablet by mouth once daily. EPINEPHrine 0.15 mg/0.15 mL (1:1,000) atIn by INJECTION(UNSPECIFIED PARENTERAL ROUTES) route. (Patient not taking: Reported on 06/28/2021 ) Izgufbqq-Gp-Ljq-Fe-FA ( VITAMIN) ORAL Tab Take 1 tablet by mouth once daily. Current Facility-Administered Medications on File Prior to Visit Medication perflutren lipid microspheres 1.3 mL in NaCl (PF) 0.9% 10 mL injection (DEFINITY) sodium chloride 0.9 % (flush) 10 mL (BD POSIFLUSH) REVIEW OF SYSTEMS: Constitutional: denies fevers, chills Cardiovascular: denies chest pain or pressure, palpitations, dizziness, lightheadedness. Denies SOTO. Denies current edema- has had in the past Respiratory: denies cough Gastrointestinal: Has IBS with intermittent diarrhea/constipation. Denies nausea or metallic taste.Appetite is good Genitourinary: denies frequency, pink or bloody urine or dysuria. Denies episodes of nocturia per night. Urinates 4 times or more per day Skin: denies pruritis, rash, diabetic foot lesions Neurological: denies headache Psychiatric: denies depression or anxiety. Reports energy level is baseline- fatigue Denies uremic symptoms PHYSICAL EXAM BP: BP 188/97 Pulse 87 Wt 103.4 kg (228 lb) LMP 09/20/2014 BMI 36.04 kg/m BP - standardized method Pulse 1 BP #1: 195/101 Pulse #1: 89 beats/min 2 BP #2 : 183/103 Pulse #2 : 87 beats/min 3 BP #3 : 187/89 Pulse #3 : 87 beats/min Average Average BP: 188/97 Average Pulse: 87 beats/min Orthostatic vitals Supine Sitting Standing BP cuff location BP cuff size Comments for BP values First BP (right) First BP (left) Last 2 Encounter Wt Readings: Date: Wt: 07/03/2021 104.3 kg (230 lb) 07/03/2021 104.3 kg (230 lb) Constitutional: No acute distress, Responsive, Overweight and Well-nourished Neck:Trachea midline No jugular venous distension Cardiovascular:No peripheral edema Regular rate and ryhthm, normal S1 and S2, no murmurs Respiratory: Normal respiratory effort. Lungs clear bilaterally. Abdomen: Soft, non-tender, non-distended. Normal bowel sounds. Extremities: No peripheral edema Neurological: Alert and oriented x3. Negative for asterixis Psychiatric: Alert and oriented x self, place, time, and setting Normal mood/affect friendly and knowledgable. Very talkative No signs of uremia Diagnostic tests reviewed for today's visit Labs: RENAL KIDNEY STONE FLOWSHEET Latest Ref Rng & Units 03/27/2021 05/07/2021 06/03/2021 06/26/2021 07/03/2021 07/30/2021 09/21/2021 11/20/2021 EGFR, 20 EGFR, All Other >=60 mL/min/1.73m 17 17 (L) 16 (L) 16 (L) 15 (L) 14 (L) 14 (L) 15 (L) Creatinine 0.58 - 0.96 mg/dL 2.95 (H) 3.05 (H) 3.35 (H) 3.34 (H) 3.39 (H) 3.75 (H) 3.56 (H) 3.37 (H) BUN 7 - 21 mg/dL 37 (H) 26 (H) 34 (H) 28 (H) 35 (H) 38 (H) 29 (H) 27 (H) Sodium 136 - 144 mmol/L 134 (L) 137 136 139 136 136 137 138 Potassium 3.7 - 5.1 mmol/L 4.8 4.5 4.5 4.7 4.8 4.8 4.8 4.3 Chloride 97 - 105 mmol/L 100 106 (H) 102 105 106 (H) 104 102 109 (H) CO2 22 - 30 mmol/L 22 20 (L) 22 20 (L) 16 (L) 18 (L) 23 22 Glucose 74 - 99 mg/dL 188 (H) 285 (H) 173 (H) 107 (H) 177 (H) 172 (H) 133 (H) 270 (H) Calcium 8.5 - 10.2 mg/dL 8.6 8.3 (L) 8.7 9.1 9.1 8.5 9.0 8.2 (L) Phosphorus 2.7 - 4.8 mg/dL 4.6 4.1 5.0 (H) 4.9 (H) 6.0 (H) 5.8 (H) 4.0 4.0 Albumin 3.9 - 4.9 g/dL 3.5 (L) 3.6 (L) 3.8 (L) 3.8 (L) 3.8 (L) 3.7 (L) 3.5 (L) 3.4 (L) WBC 3.70 - 11.00 k/uL 5.56 6.01 5.75 6.12 5.09 5.01 5.92 4.24 HGB 11.5 - 15.5 g/dL 10.9 (L) 11.2 (L) 10.9 (L) 11.0 (L) 10.1 (L) 9.3 (L) 9.5 (L) 8.2 (L) HCT 36.0 - 46.0 % 34.0 (L) 34.6 (L) 36.4 34.7 (L) 32.6 (L) 30.8 (L) 30.6 (L) 26.2 (L) PLT 150 - 400 k/uL 182 188 239 220 201 197 198 178 PTH Intact 15 - 65 pg/mL 313 (H) 473 (H) Vitamin D25 Hydroxy 31.0 - 80.0 ng/mL 51.0 Kidney imaging: CT abdomen 07/03/21. Per radiology report: IMPRESSION: Aortic and iliac atherosclerotic vascular calcifications as described, no aneurysm. No acute findings in the abdomen or pelvis Kidneys: Mildly atrophic. No calculus, hydronephrosis or finding to suggest a cyst or mass in the unenhanced kidney. Kidney ultrasound ordered in June 2020, but not completed In 2014 kidneys were normal per ultrasound 09/02/14 ASSESSMENT: Pt is an 56 year old female being seen today in FU for CKD4/5 with proteinuria likely in the setting of diabetic nephropathy and unrecovered SERGIO related to NSAID use and hemodynamic fluctuations during past surgeries. PMH: gastric bypass, HTN, anemia, bipolar disorder, fibromyalgia, GERD, IBS, CASSIE and vitamin D deficiency. CKD Stage 4/5 with proteinuria likely in the setting of diabetic nephropathy and unrecovered SERGIO related to NSAID use and hemodynamic fluctuations during past surgeries. -Creatinine 3.37 mg/dL above baseline but improved slightly from 3.75 mg/dL in June 2021. Worsening despite management -would prefer home hemo -Her baseline serum creatinine 2.3- 2.7 mg/dL -Abnormal creatinine since: 2015 -Proteinuria: Protein creatinine ratio 0.7 above goal, but improved from 1.4 in May 2021 Lisinopril resulted in hyperkalemia Abnormal since 2008 SGLT2 contraindicated d/t eGFR HTN/Volume: - well controlled at home on current regimen, but notes always worse in the office d/t white coat syndrome -Volume: euvolemic today -Currently on labetalol 50mg bid -has compression stockings and wears in colder weather Metabolic/electrolytes: -hx of metabolic acidosis K+- 4.2 wnl Co2- 22 wnl now Taking oral sodium bicarbonate 1300mg bid Anemia: -Hgb 8.2 below goal. Recommend hematology -has seen hematology in the past, but states has been anemic since her teen years. Has had hx bloodtransfusions in the past as well -denies overt losses -most recent colonoscopy 2015 with recommendation to repeat in 10 yrs -continue to monitor along with iron stores to assess for need of JENISE. Metabolic Bone: -Phos- 4.0 wnl -Ca+: 8.2 below goal. Will increase calcitriol to 0.5mcg daily -Vitamin D: 51.0 wnl -PTH: 473 above goal will update now that she is on calcitriol CV/Lipids: -hx of hyperlipidemia -on statin -recommend LDL goal of <100 to prevent progression of CKD. DM: -Last HgbA1c 7.8 above goal in August 2021, but improved from 9.7 in April 2021 -follow up with PCP/endo PLAN: -Hematology consult to help increase red blood cell count and decrease anemia. Please get the labs done prior -Please increase calcitriol to 0.5mcg daily -Please continue to get labs drawn monthly. Standing orders have been placed -Kaesu [phone] Marly -Please go to ER if you have increased itching, hiccups, metallic taste, nausea, vomiting, increasefatigue, confusion or not making urine -Discussed need for continued good diabetes, blood pressure and cholesterol control -Recommend BP goal of 130/80 or less. Please contact the office if your blood pressure is less iinj339/70 or higher than 160/90 -Recommend continued HgbA1c of 7 or less as CKD goal. -Follow low salt diet. (1/2 tsp salt) <2 grams -Please watch your protein intake and limit it to 3 ounces of protein per meal (70 or so grams per day) -please limit fluid intake to no more than 48-60 oz per day -Please avoid Advil, Ibuprofen(Motrin), Aleve(Naproxen), Meloxicam(Mobic), diclofenac and other pain/arthritis medications called NSAIDS. It is ok to take acetaminophen (Tylenol) for pain as needed -Please avoid contrast dye with imaging. If a provider wants to order CT or MRI with contrast, please let them know you have decreased kidney function. -Increase activity as tolerated. RTC [address] Hunter- continue with monthly labs Fab Cochran CNP Spent 38 minutes in the visit and reviewing the chart. [facility] Miscellaneous Notes* Telephone Encounter - Sury Corral LPN - 12/05/2021 10:58 AM EDT Patient has been identified by name and date of : Yes Patient phones for refill(s): Requested Prescriptions Pending Prescriptions Disp Refills omeprazole (PRILOSEC) 20 mg capsule 90 capsule 1 Sig: Take 1 capsule by mouth once daily. Date of last office visit in primary care: 09/14/21 Please advise. Thank you. Sury Corral LPN documented in this encounter[facility]09-28-[facility] History of Present illness Narrative* Kaylin Carranza - 11/27/2021 11:49 AM EDT CKD Outreach M Arnold Gonzalez has been identified for clinical review due to her diagnosis of CKD They have CKD 5 They have gaps in care of: None identified Based on this review the following interventions will be enacted: Consult to Nutrition Therapy Monthly Touch Point Call with pt. Reviewed medication list with pt during our call & updated same. She denies any issues with excessive itching, confusion, metallic taste, fatigue, decrease in appetite, SOB or hiccups. She does admit to intermittent chronic n/v & has prn meds for same. Reports that she is still making urine. She is requesting a nutritional consult as the previous consult she had Focused on diabetes rather than kidney dx. No other concerns or kidney care needs at this time. Kaylin Carranza RN documented in this [facility]09-26-2022 Miscellaneous Notes* Telephone Encounter - Elenita Waldron LPN - 11/25/2021 8:55 AM EDT Requester: Pharmacy Last Visit in Endocrinology: Provider name: Rojelio Clark MD , Date 10/02/2021 Next Scheduled Appt in Endo: 01/15/2022 Last Refill: 06/28/21 Number of Refills given: 3. Requested Prescriptions Pending Prescriptions Disp Refills TRULICITY 1.5 mg/0.5 mL pen injector [Pharmacy Med Name: TRULICITY SD PEN 0.5ML 4'S 1.5MG 1.5MG] 6 mL 3 Sig: INJECT 1.5 MG UNDER THE SKIN ONCE A WEEK Please review and advise. Elenita Waldron LPN documented in this encounter[facility]09-21-2022 History of Present illness Narrative* YOUSIF Fierro - 11/20/2021 3:44 PM EDT PULM FUNCTION SMARTBLOCK: Provider: Dorene Macias MD Assisting Tech: YOUSIF Fierro DLCO: 1 LV - Box: 1 documented in this encounter[facility]08-29-[facility]22 History of Present illness Narrative* Son Turpin RN - 10/28/2021 12:34 PM EDT DIABETES SELF-MANAGEMENT EDUCATION AND SUPPORT Location: [place] Type of visit: In person individual Types of DSMES: Initial/Comprehensive (add to or update ADA spreadsheet) PATIENT'S MAIN CONCERN TODAY: Figuring out how to manage diet with other things going on Support person present for education today: none Cognitive ability: Alert and oriented Motivation to learn: Interested Learning barriers identified by educator: none Method of instruction: written, verbal, and demonstration INTERVENTIONS/TOPICS COVERED: -Diabetes Pathophysiology: role of insulin in the body, role of glucose in the body, difference between Type 1 and Type 2, insulin resistance, relationship of glucose and insulin in the body, and hepatic glucose release -Monitoring: rationale for HGM, A1c meaning and target <7%, using a home glucose monitor, CGM type: Libre2, CGM basics & daily use, and CGM insertion locatioins -Healthy Eating: basic carb counting and foods with carbs -Medications: medication safety/timing, medication side effects, oral agents discussed: glipizide (Glucotrol XL) and pioglitazone (Actos), and other agents discussed: Trulicity -Physical Activity: benefits of exercise and impact of exercise on BG -Acute Complications: hypoglycemia s/sx/tx, hyperglycemia s/sx/tx, and pattern management -Chronic Complications: importance of annual eye exams, LT complications, and importance of BG control to reduce risks -Healthy Coping and Support: impact of stress on BG DIABETES ASSESSMENT: Referring Physician: Rojelio Clark Previous Diabetes Education? Yes, if so when? 1989 What are you hoping to gain from this visit? asked/not answered In your words, what is diabetes? asked/not answered What concerns you about having diabetes? Getting this kidney disease under control Diabetes History: Type of Diabetes: Type 2 What year were you diagnosed? 1989 Does anyone in your family have diabetes? asked/not answered How do you learn best? 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 rarely How often does someone help you read your pill bottles? rarely How often does someone have to help you take care of your diabetes? rarely Major stressors:asked/not answered How do you manage stress? asked/not answered Do any of the following things get in the way of managing your diabetes? Other health problems Health History: Most recent eye exam: twice per year Most recent dental exam: trying to see soon Most recent foot exam: 10/02/21 How often do you inspect your feet at home? Sometimes Do you use tobacco? No Do you use alcohol? No In the past 12 months have you had any: Hospital Admissions: No ER Visits: No Primary Care Visits: Yes, Number of Times? 2 What are your general feelings about you overall health? Fair Medical Issues/Complications: PAST MEDICAL HISTORY Diagnosis Date Acute gastritis without mention of hemorrhage Allergic rhinitis Anaphylaxis Anemia Back pain Benign essential tremor Bipolar I disorder, most recent episode (or current) unspecified sectrum Bone mass Candidiasis, intertrigo Chronic kidney disease Contraceptive management Depression Diabetes ([facility]) Diarrhea DVT, lower extremity ([facility]) 08/2014 Right leg (6) Esophagitis Facial fracture due to fall ([facility]) Fatigue Fibromyalgia Fracture Fracture of shaft of fibula GERD (gastroesophageal reflux disease) HLD (hyperlipidemia) on tricor Hyperlipidemia Hypertension Hypomagnesemia Hypopotassemia IBS (irritable bowel syndrome) Insomnia Intertrigo Knee pain Morbid obesity ([facility]) 03/11/2011 Myalgia Nausea Neck pain Neuropathy Nocturnal leg cramps Non-cardiac chest pain Obesity CASSIE (obstructive sleep apnea) 07/08/2011 Other polyp of sinus Other specified anemias Personal history of unspecified urinary disorder PMH - PAST MEDICAL HISTORY OF left knee surgery x3 Pulmonary nodules Pyelonephritis, acute Restless leg Ruptured appendicitis S/P gastric bypass Snoring Type 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, not stated as uncontrolled(250.50) on oral medications and Lanuts Unspecified asthma(493.90) on inhalers Unspecified essential hypertension on medical management Upper abdominal pain Urinary frequency Vitamin D deficiency Most recent A1C Lab Results Component Value Date HBA1C 7.8 09/21/2021 HBA1C 9.7 05/07/2021 HBA1C 7.7 10/27/2020 HBA1C 9.8 07/20/2020 HBA1C 10.9 04/21/2020 Physical Activity: Do you do a regular exercise? Yes; Sick Days: How do you manage your diabetes when you are sick? Test blood sugar more often and Call my doctor Sleep: Do you get at least 7 hrs of sleep most nights? yes Current Outpatient Medications Medication Sig glipiZIDE (GLUCOTROL XL) 5 mg 24 hr tablet Take 2 tablets by mouth once daily. phenazopyridine (PYRIDIUM) 200 mg tablet Take 1 tablet by mouth three times daily as needed. (Patient not taking: Reported on 10/28/2021) calcitriol (ROCALTROL) 0.25 mcg capsule Take 1 capsule by mouth once daily. sodium bicarbonate 650 mg tablet Take 2 tablets by mouth twice daily. pioglitazone (ACTOS) 45 mg tablet Take 1 tablet by mouth once daily. flash glucose scanning reader (FREESTYLE FESTUS 2 READER) Use to check glucose 3 times daily and continuously. 1 per year. flash glucose sensor (FREESTYLE FESTUS 2 SENSOR) kit Use to check glucose 3 times daily and continuously. Change every 14 days. 6 per 90 day supply. dulaglutide (TRULICITY) 1.5 mg/0.5 mL pen injector Inject 1.5 mg subcutaneously one time a week. sertraline (ZOLOFT) 50 mg tablet Take 1 tablet by mouth once daily. omeprazole (PRILOSEC) 20 mg capsule Take 1 capsule by mouth once daily. atorvastatin (LIPITOR) 40 mg tablet Take 1 tablet by mouth daily at bedtime. For cholesterol. labetalol (TRANDATE) 100 mg tablet Take 1 tablet by mouth twice daily. (Patient taking differently:Take 50 mg by mouth twice daily.) famotidine (PEPCID) 20 mg tablet Take 1 tablet by mouth every other day. ondansetron orally disintegrating (ZOFRAN ODT) 4 mg disintegrating tablet Take 1 tablet by mouth every 8 hours as needed for nausea/vomiting. amitriptyline (ELAVIL) 100 mg tablet Take 1 tablet by mouth daily at bedtime. baclofen (LIORESAL) 10 mg tablet Take 1 tablet by mouth three times daily as needed. cholecalciferol (VITAMIN D3) 5,000 unit tab Take 5,000 Units by mouth twice daily. aspirin, enteric coated (ADULT LOW DOSE ASPIRIN) 81 mg EC tablet Take 1 tablet by mouth once daily. Scortiky-Ej-Xgq-Fe-FA ( VITAMIN) ORAL Tab Take 1 tablet by mouth once daily. Current Facility-Administered Medications Medication Dose Route Frequency perflutren lipid microspheres 1.3 mL in NaCl (PF) 0.9% 10 mL injection (DEFINITY) INTRAVENOUS DIRECTED PRN sodium chloride 0.9 % (flush) 10 mL (BD POSIFLUSH) 10 mL INTRAVENOUS DIRECTED PRN Injections Technique: Do you take insulin or a medication you inject for your diabetes? Yes;then if so answer the following questions: How do you inject your medicine Pen Where are your injections done? Stomach/abdomen and Thigh Who prepares your syringes, pen, or pump infusion set? Self Blood Sugar Monitoring: Do you have a blood sugar monitor? Yes; What kind of meter is it? Freestyle Libre2 Management of Low Blood Sugar: What has been your lowest blood sugar in the last month? 50s, they reduced me to a lower dose of the CORNELL What are your symptoms of lows?Asked/not answered How do you treat lows? Peanut butter or other food Management of High Blood Sugar: What has been you highest blood sugar in the last month? 240s What are your symptoms of highs? Asked/not answered How do you treat your highs? asked/not answered Meal Planning: Are you currently following any meal plan? None Who does the cooking in your house? Asked/not answered Who does the grocery shopping? Self How often do you eat out? asked/not answered How many meals do you eat per day? Three Which meals do you tend to skip? None Beverages: water and unsweetened tea Reproductive Status (Females): Have you reached menopause? Not addressed EDUCATION HANDOUTS: Healthy You: Survival Skills and Healthy You: Planning Healthy Meals LEARNING RESPONSE: Diabetes pathophysiology: Demonstrated understanding/competency today or at previous visit Healthy eating: Needs further instruction/review and needs support from a RD, questions about how to integrate kidney diet and diabetes diet Being active: Demonstrated understanding/competency today or at previous visit Taking medications: Demonstrated understanding/competency today or at previous visit Monitoring glucose: Demonstrated understanding/competency today or at previous visit Acute complications: Demonstrated understanding/competency today or at previous visit Chronic complications: Demonstrated understanding/competency today or at previous visit Healthy coping: Demonstrated understanding/competency today or at previous visit Diabetes distress and support: Demonstrated understanding/competency today or at previous visit PATIENT SELECTED THE FOLLOWING GOALS: -Monitoring goal: Continue using her Freestyle Festus 3: I have a plan to start POSSIBLE FUTURE TOPICS: 1. The following topics were not assessed due to time limitations, but should be assessed at the next visit: reproductive status. 2. The following topics should be taught or reinforced at the next visit: . DIABETES EDUCATION PLAN: Individual follow-up Time Spent (Minutes): 45 This visit note will be communicated to the healthcare provider via access to shared medical record. SIGNATURE: Son Turpin RN PATIENT NAME: Margareth Gonzalez DATE: October 28, 2021 TIME: 12:36 PM PAGER: documented in this encounter[facility]08-29-2022 History of Present illness Narrative* Judi Olson RRT - 10/28/2021 9:56 AM EDT PULM FUNCTION SMARTBLOCK: Provider: Dorene Macias MD Spirometry w/BD: 1 documented in this encounter[facility]08-16-2022 Instructions* Patient Instructions* Sha Ray APRN.NOY - 10/15/2021 12:38 PM EDT How to Manage Common Symptoms Associated with COVID for Adults Fever- Fever is a temperature over 100.4 F and can occur when the body is fighting an infection. Tohelp treat a fever: Drink plenty of fluids and stay well hydrated. Eat small amounts of easy to digest food. Rest. Your body needs rest to recover, but getting up and moving around the house frequently is a good idea. You should try to continue doing your normal daily activities (bathing, toileting, grooming, cooking), though you will probably feel tired, and need to rest often. Avoid any heavy activity or exercise, as this will increase your body temperature. Dress in light clothing and stay covered in a light sheet. Keep the room temperature cool. Take a slightly warm (not cold or cool) bath, or apply damp washcloths to the forehead and wrists. Cough- Cough is a common symptom associated with COVID and can be bothersome. To help treat a cough: Stay well hydrated. Try warm water or tea with lemon and/or honey to help soothe the cough. Use a humidifier to add moisture to the air. Try a product with menthol, like a cough drop or a rub for your chest such as Vicks, which can helpreduce cough. Try cough drops. Avoid smoking and other strong odors or perfumes. Try breathing exercises to keep your lungs open and clear. Take a big deep breath through your noseand hold for 5 seconds before slowly releasing. Repeat frequently, while you are awake. Congestion- Runny nose or nasal congestion can occur with COVID. Treatment can help relieve symptoms: Try OTC nasal saline spray, or nasal saline rinse to relieve mucus congestion. Nasal strips can help keep nasal passages open, to increase airflow. Elevating your head with an extra pillow in bed can help reduce congestion. Using a humidifier can increase moisture in the air, and make breathing easier. Sore Throat- Another common symptom with COVID, can be managed at home by: Stay well hydrated. Gargle with salt water - mix teaspoon salt with 1 cup of warm water and gargle. This helps to loosen mucus in the back of the throat and may reduce discomfort. Try ice chips, popsicles or lozenges to soothe the throat. Nausea/Vomiting/Diarrhea- These are common symptoms, and staying hydrated is most important. If you are nauseous or vomiting, start with small sips of water every 10-15 minutes and increase astolerated. You can try sucking an ice cube too. If tolerating, you can try pedialyte or Gatorade, or flat sprite or veronique-vasquez. Start slowly and increase as you are able to. Instead of meals, try smaller, more frequent snacks. Try eating bland foods like crackers, toast, rice, and applesauce. Avoid spicy, greasy or fried foods and dairy containing foods. Even if you aren't feeling hungry due to lack of smell or taste, it is important to try to take in some food when you are able. After drinking and eating, rest in an upright position for up to two hours as needed to help decrease nauseous feelings. Try closing your eyes, avoid moving and watching TV. Avoid strong odors that can make you feel more nauseated. When to seek emergency medical attention Look for emergency warning signs for COVID-19. If having any of these symptoms, seek emergency medical care immediately: Trouble breathing Persistent pain or pressure in the chest New confusion Inability to wake or stay awake Bluish lips or face *This list is not all possible symptoms. Please call your medical provider for any other symptoms that are severe or concerning to you. documented in this encounter[facility]08-16-2022 History of Present illness Narrative* Sha Ray APRN.CNP - 10/15/2021 12:37 PM EDT Subjective HPI Nontoxic female presented to urgent care chief complaint COVID-19 concerns. Duration of symptoms 2 days. Associated symptoms fatigue body aches chills night sweats transient fever cough congestion sore throat and headache. Patient states initially she did have some loose stools. No known sick contacts. She is vaccine against COVID-19. Denies COVID-19 in the last 90 days. Has not used any OTC medications. Most predominant symptom today is fatigue. Denies any pleuritic pain chest pain shortness of breath hemoptysis nausea vomiting abdominal pain visual changes or rashes. Past medical history prescription medication use allergies reviewed. .Patient presents with: Head Congestion: chest congestion, bodyaches, sore throat, headache, nausea x 2 days PAST MEDICAL HISTORY Diagnosis Date Acute gastritis without mention of hemorrhage Allergic rhinitis Anaphylaxis Anemia Back pain Benign essential tremor Bipolar I disorder, most recent episode (or current) unspecified sectrum Bone mass Candidiasis, intertrigo Chronic kidney disease Contraceptive management Depression Diabetes ([facility]) Diarrhea DVT, lower extremity ([facility]) 08/2014 Right leg (6) Esophagitis Facial fracture due to fall ([facility]) Fatigue Fibromyalgia Fracture Fracture of shaft of fibula GERD (gastroesophageal reflux disease) HLD (hyperlipidemia) on tricor Hyperlipidemia Hypertension Hypomagnesemia Hypopotassemia IBS (irritable bowel syndrome) Insomnia Intertrigo Knee pain Morbid obesity (HCC) 03/11/2011 Myalgia Nausea Neck pain Neuropathy Nocturnal leg cramps Non-cardiac chest pain Obesity CASSIE (obstructive sleep apnea) 07/08/2011 Other polyp of sinus Other specified anemias Personal history of unspecified urinary disorder PMH - PAST MEDICAL HISTORY OF left knee surgery x3 Pulmonary nodules Pyelonephritis, acute Restless leg Ruptured appendicitis S/P gastric bypass Snoring Type 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, not stated as uncontrolled(250.50) on oral medications and Lanuts Unspecified asthma(493.90) on inhalers Unspecified essential hypertension on medical management Upper abdominal pain Urinary frequency Vitamin D deficiency PAST SURGICAL HISTORY Procedure Laterality Date CHOLECYSTECTOMY 04/2011 COLONOSCOPY W/BIOPSY SINGLE/MULTIPLE 12/16/07 DILATION & CURETTAGE DX&/THER NONOBSTETRIC Dilation & curettage EGD TRANSORAL BIOPSY SINGLE/MULTIPLE 12/16/07 ESOPHAGOGASTRODUODENOSCOPY TRANSORAL DIAGNOSTIC age 14 EGD LAPAROSCOPIC APPENDECTOMY 05/16/11 MIDLINE INSERTION/CONSULT 07/29/2012 Lap Paul-en-Y gastric bypass PAST SURGICAL HISTORY OF age 14 left knee surgery, for dislocation PAST SURGICAL HISTORY OF age 5 warts removed PAST SURGICAL HISTORY OF 2007 laser surgery to both eyes for diabetic retinopathy PAST SURGICAL HISTORY OF 04/26/2008 Bilateral eye surgery- vitrectomy PAST SURGICAL HISTORY OF 06/2008 Left eye air fluid exchange PAST SURGICAL HISTORY OF 04/09, 07/07 retinal vitrectomies STRESS TEST 200p, 2014 Normal results TUBAL LIGATION HX ablation at the same time ALLERGIES Vicodin [Hydrocodone-Acetaminophen], Balsam 115, Benadryl [Diphenhydramine Hcl], Chamomile, Codeine, Lisinopril, Mold, Nsaids (Non- Steroidal Anti-Inflammatory Drug), Penicillins, Seasonal Allergies, Spider [Other], Tetracycline, and Vanilla Extract MEDICATIONS glipiZIDE (GLUCOTROL XL) 5 mg 24 hr tablet^Take 2 tablets by mouth once daily.^Disp: 180 tablet^Rfl: 3 levoFLOXacin (LEVAQUIN) 250 mg tablet^Two pills today, then one po q 48 hours.^Disp: 7 tablet^Rfl: 0 phenazopyridine (PYRIDIUM) 200 mg tablet^Take 1 tablet by mouth three times daily as needed.^Disp: 6 tablet^Rfl: 0 calcitriol (ROCALTROL) 0.25 mcg capsule^Take 1 capsule by mouth once daily.^Disp: 90 capsule^Rfl: 0 sodium bicarbonate 650 mg tablet^Take 2 tablets by mouth twice daily.^Disp: 360 tablet^Rfl: 3 pioglitazone (ACTOS) 45 mg tablet^Take 1 tablet by mouth once daily.^Disp: 90 tablet^Rfl: 3 flash glucose scanning reader (FREESTYLE FESTUS 2 READER)^Use to check glucose 3 times daily and continuously. 1 per year.^Disp: 1 Each^Rfl: 0 flash glucose sensor (FREESTYLE FESTUS 2 SENSOR) kit^Use to check glucose 3 times daily and continuously. Change every 14 days. 6 per 90 day supply.^Disp: 6 Each^Rfl: 3 omeprazole (PRILOSEC) 20 mg capsule^Take 1 capsule by mouth once daily.^Disp: 90 capsule^Rfl: 1 atorvastatin (LIPITOR) 40 mg tablet^Take 1 tablet by mouth daily at bedtime. For cholesterol.^Disp:90 tablet^Rfl: 3 labetalol (TRANDATE) 100 mg tablet^Take 1 tablet by mouth twice daily.^Disp: 180 tablet^Rfl: 3 (Patient taking differently: Take 50 mg by mouth twice daily.) famotidine (PEPCID) 20 mg tablet^Take 1 tablet by mouth every other day.^Disp: 45 tablet^Rfl: 3 amitriptyline (ELAVIL) 100 mg tablet^Take 1 tablet by mouth daily at bedtime.^Disp: 90 tablet^Rfl: 3 baclofen (LIORESAL) 10 mg tablet^Take 1 tablet by mouth three times daily as needed.^Disp: 30 tablet^Rfl: 1 cholecalciferol (VITAMIN D3) 5,000 unit tab^Take 5,000 Units by mouth twice daily. ^Disp: ^Rfl: aspirin, enteric coated (ADULT LOW DOSE ASPIRIN) 81 mg EC tablet^Take 1 tablet by mouth once daily.^Disp: ^Rfl: Visyrvkr-Cp-Zsa-Fe-FA ( VITAMIN) ORAL Tab^Take 1 tablet by mouth once daily.^Disp:^Rfl: 0 clotrimazole 1 % oint^Apply to affected area twice daily.^Disp: 56.7 g^Rfl: 0 (Patient not taking: No sig reported) dulaglutide (TRULICITY) 1.5 mg/0.5 mL pen injector^Inject 1.5 mg subcutaneously one time a week.^Disp: 6 mL^Rfl: 1 sertraline (ZOLOFT) 50 mg tablet^Take 1 tablet by mouth once daily.^Disp: 90 tablet^Rfl: 1 ondansetron orally disintegrating (ZOFRAN ODT) 4 mg disintegrating tablet^Take 1 tablet by mouth every 8 hours as needed for nausea/vomiting.^Disp: 12 tablet^Rfl: 0 FAMILY HISTORY Problem Relation Age of Onset Diabetes Mother from renal disease Coronary Artery Disease Mother other (Diabetic Retinaopathy) Mother Cancer Mother uterine Stroke Mother Kidney Disease Mother Thyroid Father Thyroid Sister skin cancer Kidney Disease Sister Diabetes Sister Diabetes Sister Coronary Artery Disease Brother Diabetes Brother Coronary Artery Disease Brother Colon Cancer Other none Breast Cancer Other none Social History Tobacco Use Smoking status: Former Packs/day: 2.00 Years: 6.00 Pack years: 12.00 Types: Cigarettes Quit date: 07/31/1989 Years since quittin.2 Smokeless tobacco: Never Tobacco comments: Quit at age 24 Vaping Use Vaping Use: Never used Substance Use Topics Alcohol use: Not Currently Comment: rare Drug use: No Comment: Tried marijuana once - never used it again. BP 136/68 Pulse 90 Temp 37.1 C (98.7 F) Resp 16 Wt 104.3 kg (230 lb) LMP 09/20/2014 SpO2 96% BMI 34.97 kg/m Review of Systems Constitutional: Positive for chills, fever and malaise/fatigue. HENT: Positive for congestion and sore throat. Negative for ear discharge, ear pain and sinus pain. Eyes: Negative for blurred vision, pain, discharge and redness. Respiratory: Positive for cough. Negative for hemoptysis, sputum production, shortness of breath, wheezing and stridor. Cardiovascular: Negative for chest pain. Gastrointestinal: Positive for diarrhea. Negative for abdominal pain, nausea and vomiting. Musculoskeletal: Positive for myalgias. Skin: Negative for itching and rash. Neurological: Positive for headaches. Negative for dizziness. Objective Physical Exam Constitutional: General: She is not in acute distress. Appearance: She is not diaphoretic. HENT: Head: Normocephalic. Nose: Congestion present. Mouth/Throat: Mouth: Mucous membranes are moist. Pharynx: Oropharynx is clear. No oropharyngeal exudate or posterior oropharyngeal erythema. Eyes: Conjunctiva/sclera: Conjunctivae normal. Pupils: Pupils are equal, round, and reactive to light. Cardiovascular: Rate and Rhythm: Normal rate and regular rhythm. Heart sounds: Normal heart sounds. Pulmonary: Effort: Pulmonary effort is normal. No tachypnea, accessory muscle usage or respiratory distress. Breath sounds: Normal breath sounds. No stridor. No wheezing, rhonchi or rales. Abdominal: Palpations: Abdomen is soft. Tenderness: There is no abdominal tenderness. There is no guarding or rebound. Musculoskeletal: Cervical back: Normal range of motion and neck supple. No rigidity or tenderness. Lymphadenopathy: Cervical: No cervical adenopathy. Skin: General: Skin is warm and dry. Neurological: Mental Status: She is alert and oriented to person, place, and time. ASSESSMENT/PLAN: 1. Viral illness - ICD9: 079.99, ICD10: B34.9 - COVID WITH FLUA+B, ROUTINE Patient diagnosis viral illness. Suspicious of COVID-19 with patient's symptoms. PCR test was obtained today. Alternative diagnosis discussed. Home quarantine recommended work note provided we will follow-up with PCP if COVID-19 test is negative in 2 to 3 days for reevaluation. If positive will do a virtual visit to discuss COVID-19 therapies. Patient was educated on supportive therapies. Patientwas instructed to immediately proceed to emergency room for any new, worsening, or symptoms lastinglonger than anticipated. The patient's clinical presentation is otherwise unremarkable at this time. Based on exam and clinical finding, the patient is stable for discharge. Plan of care was discussed with patient. Patient verbalizes understanding and agrees to plan of care. This note was generatedusing [employer] software. It may contain errors in wording, punctuation, or spelling. Sha Ray APRN.NOY documented in this encounter[facility]22 Instructions* Patient Instructions* Rojelio Clark MD - 10/02/2021 4:32 PM EDT - Switch the glipizide to extended release. Take 10 mg once a day in the morning - Continue with Actos 45 mg daily in the morning - Continue with Trulicty 1.5 mg weekly - Meet with my colleague dietitian. - Sent me a message with the some blood sugar ranges and their relation to meals in 2 weeks documented in this encounterFisher[facility]08-03-[facility]22 History of Present illness Narrative* Rojelio Clark MD - 10/02/2021 4:20 PM EDT ENDOCRINOLOGY CLINIC NOTE Ms. Gonzalez is a 56 year old female with T2DM, HTN, dyslipidemia, CKD stage IV, GERD, bipolar disorder, DVT, fibromyalgia, CASSIE presented for follow-up of diabetes HPI She was diagnosed with diabetes 32 years ago on routine blood testing A1c: 07/20/2020 12:45 10/27/2020 10:42 05/07/2021 13:55 09/21/2021 10:41 Hemoglobin A1C 9.8 (H) 7.7 (H) 9.7 (H) 7.8 (H) Current regimen: Glipizide 10 mg daily Pioglitazone 45 mg once daily Trulicity 1.5 mg Home glucose monitoring: She forgot her meter. The morning levels in the low 100s. She is having post prandial hyperglycemiain the mid 200s occasionally Hypoglycemia: Once a week, as low as 60 overnight. Diet: She eats 3 main meals Physical activity: Limited by fibromyalgia Complications: Retinopathy: stable bilateral PDR on eye exam from 04/2021 Nephropathy: Her GFR is 14, UPCR 0.8 g and she sees Dr. Hunter in the nephrology clinic Neuropathy: she has tingling and numbness and pain in both feet CVS: lipid profile 06/2020: chol 89, LDL 31, HDL 44, TG 69 on atorvastatin 40 mg and aspirin BP: 157/69, but better readings at home PAST MEDICAL HISTORY Diagnosis Date Acute gastritis without mention of hemorrhage Allergic rhinitis Anaphylaxis Anemia Back pain Benign essential tremor Bipolar I disorder, most recent episode (or current) unspecified sectrum Bone mass Candidiasis, intertrigo Chronic kidney disease Contraceptive management Depression Diabetes (HCC) Diarrhea DVT, lower extremity (HCC) 08/2014 Right leg (6) Esophagitis Facial fracture due to fall (HCC) Fatigue Fibromyalgia Fracture Fracture of shaft of fibula GERD (gastroesophageal reflux disease) HLD (hyperlipidemia) on tricor Hyperlipidemia Hypertension Hypomagnesemia Hypopotassemia IBS (irritable bowel syndrome) Insomnia Intertrigo Knee pain Morbid obesity (HCC) 03/11/2011 Myalgia Nausea Neck pain Neuropathy Nocturnal leg cramps Non-cardiac chest pain Obesity CASSIE (obstructive sleep apnea) 07/08/2011 Other polyp of sinus Other specified anemias Personal history of unspecified urinary disorder PMH - PAST MEDICAL HISTORY OF left knee surgery x3 Pulmonary nodules Pyelonephritis, acute Restless leg Ruptured appendicitis S/P gastric bypass Snoring Type 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, not stated as uncontrolled(250.50) on oral medications and Lanuts Unspecified asthma(493.90) on inhalers Unspecified essential hypertension on medical management Upper abdominal pain Urinary frequency Vitamin D deficiency PAST SURGICAL HISTORY Procedure Laterality Date CHOLECYSTECTOMY 04/2011 COLONOSCOPY W/BIOPSY SINGLE/MULTIPLE 12/16/07 DILATION & CURETTAGE DX&/THER NONOBSTETRIC Dilation & curettage EGD TRANSORAL BIOPSY SINGLE/MULTIPLE 12/16/07 ESOPHAGOGASTRODUODENOSCOPY TRANSORAL DIAGNOSTIC age 14 EGD LAPAROSCOPIC APPENDECTOMY 05/16/11 MIDLINE INSERTION/CONSULT 07/29/2012 Lap Paul-en-Y gastric bypass PAST SURGICAL HISTORY OF age 14 left knee surgery, for dislocation PAST SURGICAL HISTORY OF age 5 warts removed PAST SURGICAL HISTORY OF 2007 laser surgery to both eyes for diabetic retinopathy PAST SURGICAL HISTORY OF 04/26/2008 Bilateral eye surgery- vitrectomy PAST SURGICAL HISTORY OF 06/2008 Left eye air fluid exchange PAST SURGICAL HISTORY OF 04/09, 07/07 retinal vitrectomies STRESS TEST 200p, 2015 Normal results TUBAL LIGATION HX ablation at the same time FAMILY HISTORY Problem Relation Age of Onset Diabetes Mother from renal disease Coronary Artery Disease Mother other (Diabetic Retinaopathy) Mother Cancer Mother uterine Stroke Mother Kidney Disease Mother Thyroid Father Thyroid Sister skin cancer Kidney Disease Sister Diabetes Sister Diabetes Sister Coronary Artery Disease Brother Diabetes Brother Coronary Artery Disease Brother Colon Cancer Other none Breast Cancer Other none Social History Tobacco Use Smoking status: Former Smoker Packs/day: 2.00 Years: 6.00 Pack years: 12.00 Types: Cigarettes Quit date: 07/31/1989 Years since quittin.1 Smokeless tobacco: Never Used Tobacco comment: Quit at age 24 Vaping Use Vaping Use: Never used Substance Use Topics Alcohol use: Not Currently Comment: rare Drug use: No Comment: Tried marijuana once - never used it again. (Not in a hospital admission) Allergies As of Date: 10/02/2021 Allergen Noted Reaction VICODIN [HYDROCODONE-ACETAMINOPHE*09/23/2007 Vomiting BALSAM 115 09/23/2007 BENADRYL [DIPHENHYDRAMINE HCL] 09/23/2007 Rash and Itching CHAMOMILE 02/02/2009 CODEINE 09/23/2007 Vomiting and Other: See Comments LISINOPRIL 05/26/2008 Contraindication-Medical Surgical MOLD 09/23/2007 NSAIDS (NON-STEROIDAL ANTI-INFLAM*09/13/2012 Other: See Comments PENICILLINS 09/23/2007 Anaphylaxis SEASONAL ALLERGIES 12/14/2008 Other: See Comments SPIDER [OTHER] 09/23/2007 TETRACYCLINE 09/23/2007 Rash VANILLA EXTRACT 09/23/2007 Fully Assessed 09/14/2021 Current Outpatient Medications Medication Sig Dispense Refill levoFLOXacin (LEVAQUIN) 250 mg tablet Two pills today, then one po q 48 hours. 7 tablet 0 phenazopyridine (PYRIDIUM) 200 mg tablet Take 1 tablet by mouth three times daily as needed. 6 tablet 0 clotrimazole 1 % oint Apply to affected area twice daily. (Patient not taking: Reported on 08/26/2021 ) 56.7 g 0 calcitriol (ROCALTROL) 0.25 mcg capsule Take 1 capsule by mouth once daily. 90 capsule 0 sodium bicarbonate 650 mg tablet Take 2 tablets by mouth twice daily. 360 tablet 3 pioglitazone (ACTOS) 45 mg tablet Take 1 tablet by mouth once daily. 90 tablet 3 flash glucose scanning reader (SimpleReachSTYLE FESTUS 2 READER) Use to check glucose 3 times daily and continuously. 1 per year. 1 Each 0 flash glucose sensor (FREESTYLE FESTUS 2 SENSOR) kit Use to check glucose 3 times daily and continuously. Change every 14 days. 6 per 90 day supply. 6 Each 3 dulaglutide (TRULICITY) 1.5 mg/0.5 mL pen injector Inject 1.5 mg subcutaneously one time a week. 6 mL 1 sertraline (ZOLOFT) 50 mg tablet Take 1 tablet by mouth once daily. 90 tablet 1 glipiZIDE (GLUCOTROL) 10 mg tablet Take 1 tablet by mouth once daily. 90 tablet 3 omeprazole (PRILOSEC) 20 mg capsule Take 1 capsule by mouth once daily. 90 capsule 1 atorvastatin (LIPITOR) 40 mg tablet Take 1 tablet by mouth daily at bedtime. For cholesterol. 90 tablet 3 labetalol (TRANDATE) 100 mg tablet Take 1 tablet by mouth twice daily. (Patient taking differently:Take 50 mg by mouth twice daily. ) 180 tablet 3 famotidine (PEPCID) 20 mg tablet Take 1 tablet by mouth every other day. 45 tablet 3 ondansetron orally disintegrating (ZOFRAN ODT) 4 mg disintegrating tablet Take 1 tablet by mouth every 8 hours as needed for nausea/vomiting. 12 tablet 0 amitriptyline (ELAVIL) 100 mg tablet Take 1 tablet by mouth daily at bedtime. 90 tablet 3 baclofen (LIORESAL) 10 mg tablet Take 1 tablet by mouth three times daily as needed. 30 tablet 1 cholecalciferol (VITAMIN D-3) 5,000 unit tab Take 5,000 Units by mouth twice daily. aspirin, enteric coated (ADULT LOW DOSE ASPIRIN) 81 mg EC tablet Take 1 tablet by mouth once daily. Mknjzqcv-Jf-Mjc-Fe-FA ( VITAMIN) ORAL Tab Take 1 tablet by mouth once daily. 0 Current Facility-Administered Medications Medication Dose Route Frequency Provider Last Rate Last Admin perflutren lipid microspheres 1.3 mL in NaCl (PF) 0.9% 10 mL injection (DEFINITY) INTRAVENOUS DIRECTED PRN Luis Mejia MD sodium chloride 0.9 % (flush) 10 mL (BD POSIFLUSH) 10 mL INTRAVENOUS DIRECTED PRN Luis Mejia MD COMPLETE REVIEW OF SYSTEMS: 10 point review of systems was negative other than what is mentioned in the H&P PHYSICAL EXAM: 10/02/21 1607 BP: 157/69 Pulse: 95 SpO2: 98% Weight: 106.8 kg (235 lb 6.4 oz) General: NAD, alert and cooperative, Previous exam HEENT: EOMI, no proptosis/stare. Neck: supple with full ROM. No thyromegaly or palpable nodules. Cardiovascular: RRR, +S1 and S2, no MRG appreciated Lungs: Clear to auscultation bilaterally Abdomen: soft, non-tender, non-distended Neuro: No tremor of outstretched hands noted. Deep tendon reflexes are normal with a normal relaxation phase. Psych: Normal affect Foot exam 06/28/2021: Noted dystrophic nails and dry skin. No wounds or ulcers. Good pedal pulses bilaterally. Normal vibration sensation but with decreased monofilament sensation bilaterally Labs: 05/07/2021 13:55 Sodium 137 Potassium 4.5 Chloride 106 (H) CO2 20 (L) BUN 26 (H) Creatinine 3.05 (H) Glucose 285 (H) Calcium 8.3 (L) Phosphorus 4.1 Albumin 3.6 (L) Anion Gap 11 eGFR 17 (L) 07/20/2020 12:45 Cholesterol, Total 89 Triglyceride 69 Fasting Time 12 HDL Cholesterol 44 LDL Cholesterol 31 05/07/2021 13:55 Protein/Creat Ratio 0.8 (H) Assessment and Recommendations: Ms. Gonzalez is a pleasant 56-year-old woman presented for follow-up of T2DM. There has been improvement in her glycemic control and I congratulated her on her efforts. She has met with the kidney transplant team and the vascular team for fistula creation. There is nostart date for dialysis yet, but she will meet with the nephrology team next month. I asked her to let me know prior to starting dialysis, because we may need to modify her medications She is having infrequent episodes of overnight hypoglycemia, likely related to taking the glipizideat bedtime. She is also having some episodes of postprandial hyperglycemia during the day. I will switch the glipizide to extended release and I asked her to take it in the morning with the pioglitazone. We will continue with Trulicity 1.5 mg weekly. If she continues to have episodes of hyperglycemia, we will increase the Trulicity to 3 mg. I also referred her to my colleague dietitian for discussion regarding dietary modifications Some of the above has been copied from prior documentation on 06/28/2021 but soriano elements reviewed, confirmed, and/or updated by me (Rojelio Clark MD) on 10/02/2021 I spent a total of 25 minutes on the date of the service which included preparing to see the patient, [id number] patient care, completing clinical documentation, counseling and educating the patient/family/caregiver and ordering medications, tests, or procedures. Rojelio Clark MD documented in this [facility]08-[facility]-2022 Miscellaneous Notes* Telephone Encounter - Karly Wells RN - 09/30/2021 10:25 AM EDT Left patient mateo VM was following up in regards to her needing a knee replacement and if she has beenseen by a dentist. Direct desk number provided. documented in this encounter[facility]07-16-[facility]22 History of Present illness Narrative* Ignacio Cheatham MD - 09/14/2021 9:47 AM EDT Patient presents with: Follow Up: 3 month follow up dental infection: few teeth that are bothering her can't get into dentist for a week HPI: Patient presents today for office visit for follow up. Getting her dialyis catheter. Continues to follow closely with nephrology. PSYCH:emotionally is doing ok. DM:has a cgm. One low event in the last week. Average glucose around 160. Seemaia winn on 10/02 bp is bouncing around some at home. Brings in his bp cuff. Has a dental infection. No abscess. Has an appt to see dentist in a week. No fever or swollen glands. Seeing pulmonary soon. See previous ov: Seen at [facility]. Was feeling lightheaded and had a systolic bp in the 70s. Was active and attempting toclean the house. Had some abd discomfort yesterday as well but that is better today. Reviewing the labs her hb was minimally lower at 9.8. creatinine was up to 4.03. They gave her iv fluids. Has an appt in two days with nephrology. She already has labs ordered. No fever. No black or bloody stools. No diarrhea. No urinary issues. No chest pain, palpitations. No syncope. Her bp today is better. They did cut her labetalol to 50 mg po bid. Sugars have been good. MEDICATIONS: Current Outpatient Medications Medication Sig phenazopyridine (PYRIDIUM) 200 mg tablet Take 1 tablet by mouth three times daily as needed. clotrimazole 1 % oint Apply to affected area twice daily. (Patient not taking: Reported on 08/26/2021 ) calcitriol (ROCALTROL) 0.25 mcg capsule Take 1 capsule by mouth once daily. sodium bicarbonate 650 mg tablet Take 2 tablets by mouth twice daily. pioglitazone (ACTOS) 45 mg tablet Take 1 tablet by mouth once daily. flash glucose scanning reader (FREESTYLE FESTUS 2 READER) Use to check glucose 3 times daily and continuously. 1 per year. flash glucose sensor (FREESTYLE FESTUS 2 SENSOR) kit Use to check glucose 3 times daily and continuously. Change every 14 days. 6 per 90 day supply. dulaglutide (TRULICITY) 1.5 mg/0.5 mL pen injector Inject 1.5 mg subcutaneously one time a week. sertraline (ZOLOFT) 50 mg tablet Take 1 tablet by mouth once daily. glipiZIDE (GLUCOTROL) 10 mg tablet Take 1 tablet by mouth once daily. omeprazole (PRILOSEC) 20 mg capsule Take 1 capsule by mouth once daily. atorvastatin (LIPITOR) 40 mg tablet Take 1 tablet by mouth daily at bedtime. For cholesterol. labetalol (TRANDATE) 100 mg tablet Take 1 tablet by mouth twice daily. (Patient taking differently:Take 50 mg by mouth twice daily. ) famotidine (PEPCID) 20 mg tablet Take 1 tablet by mouth every other day. ondansetron orally disintegrating (ZOFRAN ODT) 4 mg disintegrating tablet Take 1 tablet by mouth every 8 hours as needed for nausea/vomiting. amitriptyline (ELAVIL) 100 mg tablet Take 1 tablet by mouth daily at bedtime. baclofen (LIORESAL) 10 mg tablet Take 1 tablet by mouth three times daily as needed. Lancets lancets Test Two times a day. Insulin Dep? No E11.9 DM 2 cholecalciferol (VITAMIN D-3) 5,000 unit tab Take 5,000 Units by mouth twice daily. aspirin, enteric coated (ADULT LOW DOSE ASPIRIN) 81 mg EC tablet Take 1 tablet by mouth once daily. Isubjtzx-Jw-Wha-Fe-FA ( VITAMIN) ORAL Tab Take 1 tablet by mouth once daily. Current Facility-Administered Medications Medication Dose Route Frequency perflutren lipid microspheres 1.3 mL in NaCl (PF) 0.9% 10 mL injection (DEFINITY) INTRAVENOUS DIRECTED PRN sodium chloride 0.9 % (flush) 10 mL (BD POSIFLUSH) 10 mL INTRAVENOUS DIRECTED PRN ALLERGIES: ALLERGIES Allergen Reactions Vicodin [Hydrocodon* Vomiting Balsam 115 Benadryl [Diphenhyd* Rash, Itching Chamomile Asthma attack Codeine Vomiting, Other: See Comments Lisinopril Contraindication-Medical Surgical Acute renal failure Mold Nsaids (Non-Steroid* Other: See Comments Unable to take nsaids after having gastric bypass. Penicillins Anaphylaxis Seasonal Allergies Other: See Comments Nose runs, sneezing... Spider [Other] Tetracycline Rash Vanilla Extract PAST MEDICAL HISTORY Diagnosis Date Acute gastritis without mention of hemorrhage Allergic rhinitis Anaphylaxis Anemia Back pain Benign essential tremor Bipolar I disorder, most recent episode (or current) unspecified sectrum Bone mass Candidiasis, intertrigo Chronic kidney disease Contraceptive management Depression Diabetes ([facility]) Diarrhea DVT, lower extremity ([facility]) 08/2014 Right leg (6) Esophagitis Facial fracture due to fall ([facility]) Fatigue Fibromyalgia Fracture Fracture of shaft of fibula GERD (gastroesophageal reflux disease) HLD (hyperlipidemia) on tricor Hyperlipidemia Hypertension Hypomagnesemia Hypopotassemia IBS (irritable bowel syndrome) Insomnia Intertrigo Knee pain Morbid obesity (HCC) 03/11/2011 Myalgia Nausea Neck pain Neuropathy Nocturnal leg cramps Non-cardiac chest pain Obesity CASSIE (obstructive sleep apnea) 07/08/2011 Other polyp of sinus Other specified anemias Personal history of unspecified urinary disorder PMH - PAST MEDICAL HISTORY OF left knee surgery x3 Pulmonary nodules Pyelonephritis, acute Restless leg Ruptured appendicitis S/P gastric bypass Snoring Type 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, not stated as uncontrolled(250.50) on oral medications and Lanuts Unspecified asthma(493.90) on inhalers Unspecified essential hypertension on medical management Upper abdominal pain Urinary frequency Vitamin D deficiency PAST SURGICAL HISTORY Procedure Laterality Date CHOLECYSTECTOMY 04/2011 COLONOSCOPY W/BIOPSY SINGLE/MULTIPLE 12/16/07 DILATION & CURETTAGE DX&/THER NONOBSTETRIC Dilation & curettage EGD TRANSORAL BIOPSY SINGLE/MULTIPLE 12/16/07 ESOPHAGOGASTRODUODENOSCOPY TRANSORAL DIAGNOSTIC age 14 EGD LAPAROSCOPIC APPENDECTOMY 05/16/11 MIDLINE INSERTION/CONSULT 07/29/2012 Lap Paul-en-Y gastric bypass PAST SURGICAL HISTORY OF age 14 left knee surgery, for dislocation PAST SURGICAL HISTORY OF age 5 warts removed PAST SURGICAL HISTORY OF 2007 laser surgery to both eyes for diabetic retinopathy PAST SURGICAL HISTORY OF 04/26/2008 Bilateral eye surgery- vitrectomy PAST SURGICAL HISTORY OF 06/2008 Left eye air fluid exchange PAST SURGICAL HISTORY OF 04/09, 07/07 retinal vitrectomies STRESS TEST 200p, 2015 Normal results TUBAL LIGATION HX ablation at the same time FAMILY HISTORY Problem Relation Age of Onset Diabetes Mother from renal disease Coronary Artery Disease Mother other (Diabetic Retinaopathy) Mother Cancer Mother uterine Stroke Mother Kidney Disease Mother Thyroid Father Thyroid Sister skin cancer Kidney Disease Sister Diabetes Sister Diabetes Sister Coronary Artery Disease Brother Diabetes Brother Coronary Artery Disease Brother Colon Cancer Other none Breast Cancer Other none Social History Tobacco Use Smoking status: Former Smoker Packs/day: 2.00 Years: 6.00 Pack years: 12.00 Types: Cigarettes Quit date: 07/31/1989 Years since quittin.1 Smokeless tobacco: Never Used Tobacco comment: Quit at age 24 Vaping Use Vaping Use: Never used Substance Use Topics Alcohol use: Not Currently Comment: rare Drug use: No Comment: Tried marijuana once - never used it again. Reviewed current medications, allergies, past medical history, surgical history, family history andsocial history today. REVIEW OF SYSTEMS All other reviewed and negative other than HPI. HEALTH MAINTENANCE: Reviewed health maintenance issues today and recommended the following in detail. PNEUMOCOCCAL(2 - PCV) due on 11/30/2009 COVID-19 VACCINE(3 - Booster for Pfizer series) due on 01/15/2021 HBA1C due on 08/07/2021 MAMMOGRAM -has been orderd. VITALS: BP 138/72 Pulse 88 Wt 104.8 kg (231 lb) LMP 09/20/2014 BMI 35.12 kg/m Last 4 Encounter Wt Readings: Date: Wt: 09/14/2021 104.8 kg (231 lb) 08/26/2021 104.8 kg (231 lb) 08/13/2021 100.5 kg (221 lb 9.6 oz) 08/12/2021 102.5 kg (226 lb) PHYSICAL EXAMINATION: General appearance: Well appearing, alert, in no acute distress, well-hydrated, well nourished. Skin: Skin color, texture, turgor normal, no suspicious rashes or lesions Heent: poor dentition. No apparent abscess Head: Normocephalic, no masses, lesions, tenderness or abnormalities Lungs: Lungs clear to auscultation. No wheezing, rhonchi, rales Heart: RRR without murmur, gallop, or rubs. No ectopy Abdomen: Normal abdominal exam, Abdomen soft, non-tender. Bowel sounds normal. No masses, organomegaly Extremities: No deformities, edema, skin discoloration, clubbing or cyanosis. Good capillary refill. ASSESSMENT/PLAN: 1. Type 2 diabetes, controlled, with neuropathy (HCC) - ICD9: 250.60, 357.2, ICD10: E11.40 (primarydiagnosis) improved control - Continue current medications - Follow with endo - HGB A1C 2. Essential hypertension - ICD9: 401.9, ICD10: I10 - Improved control 3. Lung nodule - ICD9: 793.11, ICD10: R91.1 - see pulmonary 4. Type 2 diabetes mellitus with stage 4 chronic kidney disease, without long- term current use of insulin (HCC) - ICD9: 250.40, 585.4, ICD10: E11.22, N18.4 5. CKD (chronic kidney disease) Stage 4, GFR 15-29 ml/min - ICD9: 585.4, ICD10: N18.4 -as a samanta. 6. Other iron deficiency anemia - ICD9: 280.8, ICD10: D50.8 7. Bipolar affective disorder, remission status unspecified (HCC) - ICD9: 296.80, ICD10: F31.9 - stable 8. Dental infection. levaquin with renal dosing, given allergies etc. No zofran while using. See dentist Ignacio Cheatham RTO in six months and prn. [facility] History of Present illness Narrative* Jonathan Valenzuela MD - 08/27/2021 9:18 AM EDT Images from the original note were not included. [facility] [place] DEPARTMENT OF VASCULAR SURGERY OUTPATIENT VISIT DATE August 27, 2021 OUTPATIENT VISIT TYPE ESTABLISHED SERVICE DATE: 08/27/2021 SERVICE TIME: 9:18 AM PRIMARY CARE PHYSICIAN: Ignacio Cheatham MD HISTORY OF PRESENT ILLNESS: Ms. Gonzalez is a 56 year old female who presents today for a vascular surgery follow-up visit for AV access surgery planning. She had vein mapping prior to today's visit. No interval complaints, other than fatigue. She remains off HD with GFR of about 14. PAST MEDICAL HISTORY Diagnosis Date Acute gastritis without mention of hemorrhage Allergic rhinitis Anaphylaxis Anemia Back pain Benign essential tremor Bipolar I disorder, most recent episode (or current) unspecified sectrum Bone mass Candidiasis, intertrigo Chronic kidney disease Contraceptive management Depression Diabetes (HCC) Diarrhea DVT, lower extremity ([facility]) 08/2014 Right leg (6) Esophagitis Facial fracture due to fall ([facility]) Fatigue Fibromyalgia Fracture Fracture of shaft of fibula GERD (gastroesophageal reflux disease) HLD (hyperlipidemia) on tricor Hyperlipidemia Hypertension Hypomagnesemia Hypopotassemia IBS (irritable bowel syndrome) Insomnia Intertrigo Knee pain Morbid obesity (HCC) 03/11/2011 Myalgia Nausea Neck pain Neuropathy Nocturnal leg cramps Non-cardiac chest pain Obesity CASSIE (obstructive sleep apnea) 07/08/2011 Other polyp of sinus Other specified anemias Personal history of unspecified urinary disorder PMH - PAST MEDICAL HISTORY OF left knee surgery x3 Pulmonary nodules Pyelonephritis, acute Restless leg Ruptured appendicitis S/P gastric bypass Snoring Type 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, not stated as uncontrolled(250.50) on oral medications and Lanuts Unspecified asthma(493.90) on inhalers Unspecified essential hypertension on medical management Upper abdominal pain Urinary frequency Vitamin D deficiency PAST SURGICAL HISTORY Procedure Laterality Date CHOLECYSTECTOMY 04/2011 COLONOSCOPY W/BIOPSY SINGLE/MULTIPLE 12/16/07 DILATION & CURETTAGE DX&/THER NONOBSTETRIC Dilation & curettage EGD TRANSORAL BIOPSY SINGLE/MULTIPLE 12/16/07 ESOPHAGOGASTRODUODENOSCOPY TRANSORAL DIAGNOSTIC age 14 EGD LAPAROSCOPIC APPENDECTOMY 05/16/11 MIDLINE INSERTION/CONSULT 07/29/2012 Lap Paul-en-Y gastric bypass PAST SURGICAL HISTORY OF age 14 left knee surgery, for dislocation PAST SURGICAL HISTORY OF age 5 warts removed PAST SURGICAL HISTORY OF 2007 laser surgery to both eyes for diabetic retinopathy PAST SURGICAL HISTORY OF 04/26/2008 Bilateral eye surgery- vitrectomy PAST SURGICAL HISTORY OF 06/2008 Left eye air fluid exchange PAST SURGICAL HISTORY OF 04/09, 07/07 retinal vitrectomies STRESS TEST 200p, 2015 Normal results TUBAL LIGATION HX ablation at the same time SOCIAL HISTORY Social History Tobacco Use Smoking status: Former Smoker Packs/day: 2.00 Years: 6.00 Pack years: 12.00 Types: Cigarettes Quit date: 07/31/1989 Years since quittin.0 Smokeless tobacco: Never Used Tobacco comment: Quit at age 24 Vaping Use Vaping Use: Never used Substance Use Topics Alcohol use: Not Currently Comment: rare Drug use: No Comment: Tried marijuana once - never used it again. MEDICATIONS: phenazopyridine (PYRIDIUM) 200 mg tablet Take 1 tablet by mouth three times daily as needed. calcitriol (ROCALTROL) 0.25 mcg capsule Take 1 capsule by mouth once daily. sodium bicarbonate 650 mg tablet Take 2 tablets by mouth twice daily. pioglitazone (ACTOS) 45 mg tablet Take 1 tablet by mouth once daily. flash glucose scanning reader (FREESTYLE FESTUS 2 READER) Use to check glucose 3 times daily and continuously. 1 per year. flash glucose sensor (FREESTYLE FESTUS 2 SENSOR) kit Use to check glucose 3 times daily and continuously. Change every 14 days. 6 per 90 day supply. dulaglutide (TRULICITY) 1.5 mg/0.5 mL pen injector Inject 1.5 mg subcutaneously one time a week. sertraline (ZOLOFT) 50 mg tablet Take 1 tablet by mouth once daily. glipiZIDE (GLUCOTROL) 10 mg tablet Take 1 tablet by mouth once daily. omeprazole (PRILOSEC) 20 mg capsule Take 1 capsule by mouth once daily. atorvastatin (LIPITOR) 40 mg tablet Take 1 tablet by mouth daily at bedtime. For cholesterol. labetalol (TRANDATE) 100 mg tablet Take 1 tablet by mouth twice daily. famotidine (PEPCID) 20 mg tablet Take 1 tablet by mouth every other day. ondansetron orally disintegrating (ZOFRAN ODT) 4 mg disintegrating tablet Take 1 tablet by mouth every 8 hours as needed for nausea/vomiting. amitriptyline (ELAVIL) 100 mg tablet Take 1 tablet by mouth daily at bedtime. baclofen (LIORESAL) 10 mg tablet Take 1 tablet by mouth three times daily as needed. cholecalciferol (VITAMIN D-3) 5,000 unit tab Take 5,000 Units by mouth twice daily. aspirin, enteric coated (ADULT LOW DOSE ASPIRIN) 81 mg EC tablet Take 1 tablet by mouth once daily. Agfxkpol-Dx-Vmn-Fe-FA ( VITAMIN) ORAL Tab Take 1 tablet by mouth once daily. clotrimazole 1 % oint Apply to affected area twice daily. Lancets lancets Test Two times a day. Insulin Dep? No E11.9 DM 2 ALLERGIES: ALLERGIES Allergen Reactions Vicodin [Hydrocodon* Vomiting Balsam 115 Benadryl [Diphenhyd* Rash, Itching Chamomile Asthma attack Codeine Vomiting, Other: See Comments Lisinopril Contraindication-Medical Surgical Acute renal failure Mold Nsaids (Non-Steroid* Other: See Comments Unable to take nsaids after having gastric bypass. Penicillins Anaphylaxis Seasonal Allergies Other: See Comments Nose runs, sneezing... Spider [Other] Tetracycline Rash Vanilla Extract PHYSICAL EXAM: BP 142/82 Pulse 85 Resp 16 Ht 172.7 cm (5' 8) Wt 104.8 kg (231 lb) LMP 09/20/2014 [id number]% BMI 35.12 kg/m No change in exam. Diagnostic tests reviewed for today's visit: 3 Result Notes 1 Topic Component Ref Range & Units 4 wk ago (07/30/21) 1 mo ago (07/03/21) 1 mo ago (07/03/21) 2 mo ago (06/26/21) 2 mo ago (06/03/21) 3 mo ago (05/07/21) 5 mo ago (03/27/21) Albumin 3.9 - 4.9 g/dL 3.7 Low 3.8 Low 3.8 Low 3.8 Low 3.6 Low 3.5 Low Calcium, Total 8.5 - 10.2 mg/dL 8.5 9.1 9.1 8.7 8.3 Low 8.6 Phosphorus 2.7 - 4.8 mg/dL 5.8 High 6.0 High 4.9 High 5.0 High 4.1 4.6 Glucose 74 - 99 mg/dL 172 High 177 High CM 107 High CM 173 High CM 285 High CM 188 High CM Comment: The [place] [employer] (ADA) provides guidance for cutoff values for fasting glucose and random glucose. The ADA defines fasting as no caloric intake for at least 8 hours. Fastingplasma glucose results between 100 to 125 mg/dL indicate increased risk for diabetes (prediabetes). Fasting plasma glucose results greater than or equal to 126 mg/dL meet the criteria for diagnosis of diabetes. In the absence of unequivocal hyperglycemia, results should be confirmed by repeat testing. In a patient with classic symptoms of hyperglycemia or hyperglycemic crisis, random plasma glucose results greater than or equal to 200 mg/dL meet the criteria for diagnosis of diabetes. Reference: Standards of Medical Care in Diabetes 2016, [place] [employer]. Diabetes Care. 2016.39(Suppl 1). BUN 7 - 21 mg/dL 38 High 35 High 28 High 34 High 26 High 37 High Creatinine 0.58 - 0.96 mg/dL 3.75 High 3.39 High 3.34 High 3.35 High 3.05 High 2.95 High Sodium 136 - 144 mmol/L 136 136 139 136 137 134 Low Potassium 3.7 - 5.1 mmol/L 4.8 4.8 4.7 4.5 4.5 4.8 Chloride 97 - 105 mmol/L 104 106 High 105 102 106 High 100 CO2 22 - 30 mmol/L 18 Low 16 Low 20 Low 22 20 Low 22 Anion Gap 9 - 18 mmol/L 14 14 14 12 11 12 Estimated Glomerular Filtration Rate >=60 mL/min/1.73m 14 Low 15 Low CM 16 Low CM 16 Low CM 17 Low CM IMPRESSION: Ms. Gonzalez is a 56 year old female with CKD 5 with disadvantaged anatomy for AV access. With her history of bariatric surgery, she is unlikely a good candidate for PD. Given her small veins and marginally adequate arterial anatomy, I do not think either brachial artery would support a non-autogenous access and therefore recommend L axillary loop AVG. Would defer proceeding with AVG until dialysis is more imminently required. Can arrange AVG in short order, such that it would be available for use for dialysis within 3 - 4 weeks of request. This does risk the possibility that HD would need to be initiated with an HD catheter and the patient clearly understands this. In the absence of any o ther significant clinical change that could influence the decision for surgery, can proceed with L arm avg at request and without having to reevaluate patient in office prior to surgery. Medical Decision Making SIGNATURE: Jonathan Valenzuela MD PATIENT NAME: Margareth Gonzalez DATE: August 27, 2021 TIME: 9:18 AM [facility] Miscellaneous Notes* Telephone Encounter - Efra Box Ma - 08/23/2021 9:06 AM EDT Left detailed message that form will be in med recs after lunch * Telephone Encounter - Ignacio Cheatham MD - 08/22/2021 5:22 PM EDT done * Telephone Encounter - Chloe Carpenter LPN - 08/21/2021 4:48 PM EDT Patient has been identified by name and date of : Yes Type of form: reasonable accommodation request Form received via: Walk in When form is completed, contact patient. Form has been forwarded to: Provider's desk. Provider name: Linden Carpenter LPN [facility] Miscellaneous Notes* Telephone Encounter - Karly Wells RN - 08/19/2021 9:12 AM EDT LVM for patient to please return my call in regards to abnormal test results. Direct desk number provided. [facility] History of Present illness Narrative* Saira Brody RN - 08/15/2021 12:30 PM EDT RADIOLOGY SERVICE PROGRESS NOTE SERVICE DATE: 08/15/2021 SERVICE TIME: 1:12 PM PATIENT IDENTITY VERIFICATION COMPLETED USING TWO (2) STANDARD IDENTIFIERS: Name and Date of confirmed by patient verbally and Name and Date of confirmed by identification band PATIENT GENDER DATA: female ALLERGIES: Reviewed and unchanged MEDICATIONS REVIEWED BY: Splitting Machine Tender PROCEDURE TYPE: NM STRESS: 0.4 mg of Lexiscan was administered IV at 1310 by Saira Brody RN. Reversal agent used: None. IV SITE: Ambulatory: A Saline lock was inserted per protocol POST EXAM PIV STATUS: Discontinued PATIENT DISCHARGED TO: Ambulatory patient, left [place] department area. A Diagnostic radioactive procedure has taken place, with no further precautions necessary other than routine body substance precautions. More information regarding radiation safety can be found usingthis link: [email or web address] SIGNATURE: Saira Brody RN PATIENT NAME: Margareth Gonzalez DATE: August 15, 2021 TIME: 1:12 PM PAGER/CONTACT #:[phone] * Lionel Manuel, RT(R) - 08/15/2021 12:30 PM EDT RADIOLOGY SERVICE PROGRESS NOTE SERVICE DATE: 08/15/2021 SERVICE TIME: 11:16 AM PATIENT IDENTITY VERIFICATION COMPLETED USING TWO (2) STANDARD IDENTIFIERS: Name and Date of confirmed by patient verbally FALL SCREENING: Has the patient had 2 falls in the last year or 1 fall with injury or currently using an Ambulatory Assistive Device (Walker, Cane, Wheelchair, Crutches, etc.)? Yes, Patient High Riskfor Falls What interventions were put in place to prevent falls during this visit? Yellow Falls Risk Wristband Applied PATIENT GENDER DATA: .female ALLERGIES: Reviewed and unchanged MEDICATIONS REVIEWED: No PATIENT RELEVANT IMPLANT DATA REVIEWED: Not Applicable CREATININE: Creatinine Date Value Ref Range Status 07/30/2021 3.75 (H) 0.58 - 0.96 mg/dL Final 07/03/2021 3.39 (H) 0.58 - 0.96 mg/dL Final 06/26/2021 3.34 (H) 0.58 - 0.96 mg/dL Final Estimated Glomerular Filtration Rate Date Value Ref Range Status 07/30/2021 14 (L) >=60 mL/min/1.73m Final Comment: Estimated Glomerular Filtration Rate (eGFR) is calculated using the 2020 CKD-EPI creatinine equation. This equation utilizes serum creatinine, sex, and age as parameters. The creatinine assay has traceable calibration to isotope dilution- mass spectrometry. Refer to KDIGO guidelines for clinical interpretation. In patients with unstable renal function, e.g. those with acute kidney injury, the eGFRmay not accurately reflect actual GFR. eGFR- Date Value Ref Range Status 03/27/2021 20 Final P.O.C.T. RESULTS: N/A August 15, [address] PERFORMED: No IV SITE: Ambulatory: A peripheral IV was started in the Left hand with a Angio cath: 22 gauge. POST EXAM PIV STATUS: Discontinued PROCEDURE TYPE: NM Stress: 14mCi [id number] was administered IV for Rest Imaging at 1115 by Audra Valadez, RT(R) . 31.6 mCi [id number] was administered IV for Stress Imaging at 1:10PM by Enriqueta Manuel, RT(R). ADMINISTRATION TIME: PATIENT DISCHARGED TO: Ambulatory patient, left [place] department area. A Diagnostic radioactive procedure has taken place, with no further precautions necessary other than routine body substance precautions. More information regarding radiation safety can be found usingthis link: [email or web address] SIGNATURE: RT Ai(R) PATIENT NAME: Margareth Gonzalez DATE: August 15, 2021 TIME: 11:16 AM PAGER/CONTACT #: documented in this [facility] History of Present illness Narrative* RT Huseyin(R) - 08/15/2021 11:00 AM EDT Radiology Service Progress Note PATIENT NAME: Margareth Gonzalez DATE OF SERVICE: August 15, 2021 TIME: 10:27 AM PATIENT IDENTITY VERIFICATION COMPLETED USING TWO (2) IDENTIFIERS: Name and Date of confirmedby patient verbally and Name and Date of confirmed by identification band. FALL SCREENING: Has the patient had 2 falls in the last year or 1 fall with injury or currently using an Ambulatory Assistive Device (Walker, Cane, Wheelchair, Crutches, etc.)? Yes, Patient High Riskfor Falls What interventions were put in place to prevent falls during this visit? Yellow Falls Risk Wristband Applied PATIENT GENDER DATA: Female. status: : No status: NO. PATIENT RELEVANT IMPLANT DATA REVIEWED: Yes RADIOLOGY DEPARTMENT: CT; Exam(s) Completed: Chest PERIPHERAL IV DATA: Not applicable SIGNED BY: NANCY Fontanez RT(R) August 15, 2021 10:27 AM documented [facility] History of Present illness Narrative* Jonathan Valenzuela MD - 08/12/2021 3:57 PM EDT Images from the original note were not included. [facility] [place] DEPARTMENT OF VASCULAR SURGERY OUTPATIENT VISIT DATE August 12, 2021 OUTPATIENT VISIT TYPE CONSULTATION SERVICE DATE: 08/12/2021 SERVICE TIME: 3:59 PM PRIMARY CARE PHYSICIAN: Ignacio Cheatham MD REFERRING PROVIDER: Fab Cochran [phone] [place] [phone] Consult requested for an opinion regarding the evaluation and treatment of the above. My final impression and recommendations will be communicated back to the requesting physician by way of the shared medical record or letter via [place] mail. CHIEF COMPLAINT: CKD 5 HISTORY OF PRESENT ILLNESS: Vascular consultation at the request of Dr. Fab Cochran. A copy of this consultation note will be provided to the requesting physician by way of shared Medical record or letter to requesting physician via US mail. Ms. Gonzalez is a 56 year old female who is seen today for AV access surgery evaluation. Patient is right-handed. She has CKD 5 due to diabetes. Patient reports no problems with arms or range of motion. She has bilateral carpal tunnel syndrome with mild chronic numbness in the digits. She has nothad vein mapping. She feels well otherwise. No nausea, vomiting, shortness of breath or general malaise. She is unable to walk a flight of stairs due to left knee arthritis.. PAST MEDICAL HISTORY Diagnosis Date Acute gastritis without mention of hemorrhage Allergic rhinitis Anaphylaxis Anemia Back pain Benign essential tremor Bipolar I disorder, most recent episode (or current) unspecified sectrum Bone mass Candidiasis, intertrigo Chronic kidney disease Contraceptive management Depression Diabetes ([facility]) Diarrhea DVT, lower extremity ([facility]) 08/2014 Right leg (6) Esophagitis Facial fracture due to fall ([facility]) Fatigue Fibromyalgia Fracture Fracture of shaft of fibula GERD (gastroesophageal reflux disease) HLD (hyperlipidemia) on tricor Hyperlipidemia Hypertension Hypomagnesemia Hypopotassemia IBS (irritable bowel syndrome) Insomnia Intertrigo Knee pain Morbid obesity (HCC) 03/11/2011 Myalgia Nausea Neck pain Neuropathy Nocturnal leg cramps Non-cardiac chest pain Obesity CASSIE (obstructive sleep apnea) 07/08/2011 Other polyp of sinus Other specified anemias Personal history of unspecified urinary disorder PMH - PAST MEDICAL HISTORY OF left knee surgery x3 Pulmonary nodules Pyelonephritis, acute Restless leg Ruptured appendicitis S/P gastric bypass Snoring Type 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, not stated as uncontrolled(250.50) on oral medications and Lanuts Unspecified asthma(493.90) on inhalers Unspecified essential hypertension on medical management Upper abdominal pain Urinary frequency Vitamin D deficiency PAST SURGICAL HISTORY Procedure Laterality Date CHOLECYSTECTOMY 04/2011 COLONOSCOPY W/BIOPSY SINGLE/MULTIPLE 12/16/07 DILATION & CURETTAGE DX&/THER NONOBSTETRIC Dilation & curettage EGD TRANSORAL BIOPSY SINGLE/MULTIPLE 12/16/07 ESOPHAGOGASTRODUODENOSCOPY TRANSORAL DIAGNOSTIC age 14 EGD LAPAROSCOPIC APPENDECTOMY 05/16/11 MIDLINE INSERTION/CONSULT 07/29/2012 Lap Paul-en-Y gastric bypass PAST SURGICAL HISTORY OF age 14 left knee surgery, for dislocation PAST SURGICAL HISTORY OF age 5 warts removed PAST SURGICAL HISTORY OF 2007 laser surgery to both eyes for diabetic retinopathy PAST SURGICAL HISTORY OF 04/26/2008 Bilateral eye surgery- vitrectomy PAST SURGICAL HISTORY OF 06/2008 Left eye air fluid exchange PAST SURGICAL HISTORY OF 04/09, 07/07 retinal vitrectomies STRESS TEST 200p, 2015 Normal results TUBAL LIGATION HX ablation at the same time SOCIAL HISTORY: Social History Tobacco Use Smoking status: Former Smoker Packs/day: 2.00 Years: 6.00 Pack years: 12.00 Types: Cigarettes Quit date: 07/31/1989 Years since quittin.0 Smokeless tobacco: Never Used Tobacco comment: Quit at age 24 Vaping Use Vaping Use: Never used Substance Use Topics Alcohol use: Not Currently Comment: rare Drug use: No Comment: Tried marijuana once - never used it again. FAMILY HISTORY Problem Relation Age of Onset Diabetes Mother from renal disease Coronary Artery Disease Mother other (Diabetic Retinaopathy) Mother Cancer Mother uterine Stroke Mother Kidney Disease Mother Thyroid Father Thyroid Sister skin cancer Kidney Disease Sister Diabetes Sister Diabetes Sister Coronary Artery Disease Brother Diabetes Brother Coronary Artery Disease Brother Colon Cancer Other none Breast Cancer Other none MEDICATIONS: calcitriol (ROCALTROL) 0.25 mcg capsule Take 1 capsule by mouth once daily. sodium bicarbonate 650 mg tablet Take 2 tablets by mouth twice daily. pioglitazone (ACTOS) 45 mg tablet Take 1 tablet by mouth once daily. flash glucose scanning reader (FREESTYLE FESTUS 2 READER) Use to check glucose 3 times daily and continuously. 1 per year. flash glucose sensor (FREESTYLE FESTUS 2 SENSOR) kit Use to check glucose 3 times daily and continuously. Change every 14 days. 6 per 90 day supply. dulaglutide (TRULICITY) 1.5 mg/0.5 mL pen injector Inject 1.5 mg subcutaneously one time a week. sertraline (ZOLOFT) 50 mg tablet Take 1 tablet by mouth once daily. glipiZIDE (GLUCOTROL) 10 mg tablet Take 1 tablet by mouth once daily. omeprazole (PRILOSEC) 20 mg capsule Take 1 capsule by mouth once daily. atorvastatin (LIPITOR) 40 mg tablet Take 1 tablet by mouth daily at bedtime. For cholesterol. labetalol (TRANDATE) 100 mg tablet Take 1 tablet by mouth twice daily. famotidine (PEPCID) 20 mg tablet Take 1 tablet by mouth every other day. ondansetron orally disintegrating (ZOFRAN ODT) 4 mg disintegrating tablet Take 1 tablet by mouth every 8 hours as needed for nausea/vomiting. amitriptyline (ELAVIL) 100 mg tablet Take 1 tablet by mouth daily at bedtime. baclofen (LIORESAL) 10 mg tablet Take 1 tablet by mouth three times daily as needed. cholecalciferol (VITAMIN D-3) 5,000 unit tab Take 5,000 Units by mouth twice daily. aspirin, enteric coated (ADULT LOW DOSE ASPIRIN) 81 mg EC tablet Take 1 tablet by mouth once daily. Anebhfgx-Rt-Itf-Fe-FA ( VITAMIN) ORAL Tab Take 1 tablet by mouth once daily. Lancets lancets Test Two times a day. Insulin Dep? No E11.9 DM 2 ALLERGIES: ALLERGIES Allergen Reactions Vicodin [Hydrocodon* Vomiting Balsam 115 Benadryl [Diphenhyd* Rash, Itching Chamomile Asthma attack Codeine Vomiting, Other: See Comments Lisinopril Contraindication-Medical Surgical Acute renal failure Mold Nsaids (Non-Steroid* Other: See Comments Unable to take nsaids after having gastric bypass. Penicillins Anaphylaxis Seasonal Allergies Other: See Comments Nose runs, sneezing... Spider [Other] Tetracycline Rash Vanilla Extract REVIEW OF SYSTEM: See HPI PHYSICAL EXAM: VITALS: BP 140/92 Pulse 101 Resp 18 Wt 226 lb (102.5kg) SpO2 97% LMP 09/20/2014 General: Alert and oriented, No acute distress, Obese Integumentary: Normal color, no rash, no lesions. HEENT: EOM, pupils equal, round and reactive., No carotid bruits Cardiovascular: Normal S1 & S2, no rubs, murmurs or gallops. No JVD., Pulse regular. Lungs: Normal breath sounds, no wheezes or crackles. Extremities: Trace edema bilateral ankles. Neurological: Normal cognition and motor skills. Gait normal. No weakness or sensory deficit. Speech fluent. Vascular: 2+ bilateral brachial pulses. 1+ radial and ulnar pulses bilaterally. Small forearm veins. Upper arms are too obese to palpate the cephalic or basilic veins. No evidence of phlebitis. Venipuncture melendez on both arms. Diagnostic tests reviewed for today's visit: none IMPRESSION: Ms. Gonzalez is a 56 year old female with CKD 5. By exam, appears to have limited venous conduit for AV fistula. We will get vein mapping and she will return to the office for review and further advisement.. Medical Decision Making SIGNATURE: Jonathan Valenzuela MD PATIENT NAME: Margareth Gonzalez DATE: August 12, 2021 TIME: 3:59 PM documented in this [facility] Miscellaneous Notes* Telephone Encounter - Georgina Salmon RN - 08/06/2021 3:06 PM EDT Patient returned call and given provider's message below and patient verbalized understanding. Wen Salmon RN * Telephone Encounter - NANCY Yu - 08/06/2021 2:37 PM EDT TC to patient with no answer, left message to return call to office. NANCY Yu * Telephone Encounter - Lobo Gallegos Ma - 08/02/2021 1:11 PM EDT Left message to call office. 08/02/2021 1:11 PM * Telephone Encounter - Ignacio Cheatham MD - 08/01/2021 4:51 PM EDT If we are looking in town, Dr Cebul * Telephone Encounter - Ameena Dumont RN - 08/01/2021 4:10 PM EDT Patient calling to ask PCP if he can recommend a vascular surgeon for placement of A-V fistula for dialysis? Nephrology is recommending she have one placed. Ameena Dumont RN documented in this encounter[facility]06-[facility]-2022 Miscellaneous Notes* Addendum Note - Fab Cochran APRN.NOY - 08/01/2021 5:27 PM EDT Addended by: FAB COCHRAN on: 08/01/2021 05:27 PM Modules accepted: Orders documented in this encounterFisher[facility]06-02-2022 Instructions* Patient Instructions* Fab Cochran APRN.NOY - 08/01/2021 2:49 PM EDT PLAN: -Please call vascular surgery to arrange fistula placement -Please get labs drawn monthly. Standing orders have been placed -please increase your sodium bicarbonate to 1300mg (2 pills) twice a day -Please begin taking calcitriol 0.25mcg to help better balance your parathyroid and calcium levels. -Please take your blood pressure once a day for the next week and My Chart us. Please consider going to ER if it drops below 100/70 again -please limit phosphorous foods. Foods rich in phosphorous include: dairy, broccoli, beans, meats, whole wheat and grains, asher and chocolate. -Please go to ER if you have increased itching, hiccups, metallic taste, nausea, vomiting, increasefatigue, confusion or not making urine -Discussed need for good diabetes, blood pressure and cholesterol control -Recommend BP goal of 130/80 or less. Please contact the office if your blood pressure is less [id number] or higher than 160/90 -Recommend HgbA1c of 7 or less as CKD goal. -Follow low salt diet. (1/2 tsp salt) <2 grams -Please watch your protein intake and limit it to 3 ounces of protein per meal -please limit fluid intake to no more than 48-60 oz per day -Please avoid Advil, Ibuprofen(Motrin), Aleve(Naproxen), Meloxicam(Mobic), diclofenac and other pain/arthritis medications called NSAIDS. It is ok to take acetaminophen (Tylenol) for pain as needed -Please avoid contrast dye with imaging. If a provider wants to order CT or MRI with contrast, please let them know you have decreased kidney function. -Increase activity as tolerated. Referral to: vascular surgeon. Saira Jackson D.O [phone] in [place] or other locations that are convenient for you RTC [address] Hunter Please bring a complete list of your medications, the dosage and times taken - to every visit. Please contact me by phone or via My Chart for any questions or concerns. We want to know that ALL of your concerns/needs relevant to this visit- were met today and that we have hopefully exceeded your expectations. If not-please let us know how we can improve our service to you by calling [phone] You may be receiving a survey regarding your care today. If you do, please take a few minutes to fill it out and send it back. It would be greatly appreciated. documented in this encounter[facility]06-02-2022 History of Present illness Narrative* Fab Cochran APRN.NOY - 08/01/2021 1:45 PM EDT [facility] DEPARTMENT OF KIDNEY MEDICINE CHIEF COMPLAINT: Follow up for CKD follow up. HPI: Pt is an 56 year old female being seen today with her brother in [place] for CKD4/5 with proteinuria likely in the setting of diabetic nephropathy and unrecovered SERGIO related to NSAID use and hemodynamic fluctuations during past surgeries. PMH: gastric bypass, HTN, anemia, bipolar disorder, fibromyalgia, GERD, IBS, CASSIE and vitamin D deficiency. Last seen by Dr Hunter 03/29/21 Since last visit had episode of labile blood pressures and loose stools Feels pretty good today BPs at home lower at home in the past few days 95/51 HR 112, 97/40 HR 93. Had one event of pressurein 70s systolic. No syncopal events and recovered quickly. BP much higher in the office which she believes is white coat Blood sugars at home 90-115 fasting. Has been recommended rn ent monitoring and is awaiting approval Medication adherence is great Avoids NSAIDS Follows low salt diet Last visit w endo 06/28/21 PCP 06/26/21 Acceptable candidate for transplant per [facility] team on 07/03/21, but will need knee replacement first, as well as pap and mammogram. Mammogram has been scheduled. Awaiting dental approval. Hepatitis and HIV testing completed 07/03/21 Completed dialysis education and would like home hemo. Drinking 32oz water per day plus soda and tea. 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 Has good family support. Works from home Joined diet group- [employer] which focuses on healthy diet. Limits meat Problem List Reviewed PAST MEDICAL HISTORY Diagnosis Date Acute gastritis without mention of hemorrhage Allergic rhinitis Anaphylaxis Anemia Back pain Benign essential tremor Bipolar I disorder, most recent episode (or current) unspecified sectrum Bone mass Candidiasis, intertrigo Chronic kidney disease Contraceptive management Depression Diabetes (HCC) Diarrhea DVT, lower extremity (HCC) 08/2014 Right leg (6) Esophagitis Facial fracture due to fall (HCC) Fatigue Fibromyalgia Fracture Fracture of shaft of fibula GERD (gastroesophageal reflux disease) HLD (hyperlipidemia) on tricor Hyperlipidemia Hypertension Hypomagnesemia Hypopotassemia IBS (irritable bowel syndrome) Insomnia Intertrigo Knee pain Morbid obesity (HCC) 03/11/2011 Myalgia Nausea Neck pain Neuropathy Nocturnal leg cramps Non-cardiac chest pain Obesity CASSIE (obstructive sleep apnea) 07/08/2011 Other polyp of sinus Other specified anemias Personal history of unspecified urinary disorder PMH - PAST MEDICAL HISTORY OF left knee surgery x3 Pulmonary nodules Pyelonephritis, acute Restless leg Ruptured appendicitis S/P gastric bypass Snoring Type 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, not stated as uncontrolled(250.50) on oral medications and Lanuts Unspecified asthma(493.90) on inhalers Unspecified essential hypertension on medical management Upper abdominal pain Urinary frequency Vitamin D deficiency Current Outpatient Medications on File Prior to Visit Medication Sig pioglitazone (ACTOS) 45 mg tablet Take 1 tablet by mouth once daily. flash glucose scanning reader (FREESTYLE FESTUS 2 READER) Use to check glucose 3 times daily and continuously. 1 per year. flash glucose sensor (FREESTYLE FESTUS 2 SENSOR) kit Use to check glucose 3 times daily and continuously. Change every 14 days. 6 per 90 day supply. dulaglutide (TRULICITY) 1.5 mg/0.5 mL pen injector Inject 1.5 mg subcutaneously one time a week. sertraline (ZOLOFT) 50 mg tablet Take 1 tablet by mouth once daily. glipiZIDE (GLUCOTROL) 10 mg tablet Take 1 tablet by mouth once daily. omeprazole (PRILOSEC) 20 mg capsule Take 1 capsule by mouth once daily. sodium bicarbonate 650 mg tablet Take 1 tablet by mouth twice daily. atorvastatin (LIPITOR) 40 mg tablet Take 1 tablet by mouth daily at bedtime. For cholesterol. labetalol (TRANDATE) 100 mg tablet Take 1 tablet by mouth twice daily. famotidine (PEPCID) 20 mg tablet Take 1 tablet by mouth every other day. ondansetron orally disintegrating (ZOFRAN ODT) 4 mg disintegrating tablet Take 1 tablet by mouth every 8 hours as needed for nausea/vomiting. amitriptyline (ELAVIL) 100 mg tablet Take 1 tablet by mouth daily at bedtime. baclofen (LIORESAL) 10 mg tablet Take 1 tablet by mouth three times daily as needed. Lancets lancets Test Two times a day. Insulin Dep? No E11.9 DM 2 cholecalciferol (VITAMIN D-3) 5,000 unit tab Take 5,000 Units by mouth twice daily. aspirin, enteric coated (ADULT LOW DOSE ASPIRIN) 81 mg EC tablet Take 1 tablet by mouth once daily. EPINEPHrine 0.15 mg/0.15 mL (1:1,000) atIn by INJECTION(UNSPECIFIED PARENTERAL ROUTES) route. (Patient not taking: Reported on 06/28/2021 ) Qhehrgwc-Bh-Vza-Fe-FA ( VITAMIN) ORAL Tab Take 1 tablet by mouth once daily. Current Facility-Administered Medications on File Prior to Visit Medication perflutren lipid microspheres 1.3 mL in NaCl (PF) 0.9% 10 mL injection (DEFINITY) sodium chloride 0.9 % (flush) 10 mL (BD POSIFLUSH) REVIEW OF SYSTEMS: Constitutional: denies fevers, chills Cardiovascular: denies chest pain or pressure, palpitations, dizziness, lightheadedness. Denies SOTO. Denies current edema- has had in the past Respiratory: denies cough Gastrointestinal: Has IBS with intermittent diarrhea/constipation. Denies nausea or metallic taste.Appetite is good Genitourinary: denies frequency, pink or bloody urine or dysuria. Has 1 episodes of nocturia per night. Does not interfere with sleep. Urinates 4 times or more per day Skin: denies pruritis, rash, diabetic foot lesions Neurological: denies headache Psychiatric: denies depression or anxiety. Reports energy level is baseline- fatigue Denies uremic symptoms PHYSICAL EXAM BP: BP 172/90 Pulse 85 Wt 101.2 kg (223 lb) LMP 09/20/2014 BMI 33.91 kg/m LMP 09/20/2014 BP standardized method Pulse 1 BP #1: 174/93 Pulse #1: 85 beats/min 2 BP #2 : 174/84 Pulse #2 : 85 beats/min 3 BP #3 : 170/59 Pulse #3 : 85 beats/min Average Average BP: 172/90 Average Pulse: 85 beats/min Orthostatic vitals Supine Sitting Standing BP cuff location BP cuff size Comments for BP values First BP (right) First BP (left) This practitioner took BP manually with reading in the Right arm of 142/86 Last 2 Encounter Wt Readings: Date: Wt: 07/03/2021 104.3 kg (230 lb) 07/03/2021 104.3 kg (230 lb) Constitutional: No acute distress, Responsive, Overweight and Well-nourished Neck:Trachea midline No jugular venous distension Cardiovascular:No peripheral edema Regular rate and ryhthm, normal S1 and S2, no murmurs Respiratory: Normal respiratory effort. Lungs clear bilaterally. Abdomen: Soft, non-tender, non-distended. Normal bowel sounds. Extremities: No peripheral edema Neurological: Alert and oriented x3. Negative for asterixis Psychiatric: Alert and oriented x self, place, time, and setting Normal mood/affect friendly and knowledgable. No signs of uremia Diagnostic tests reviewed for today's visit Labs: RENAL KIDNEY STONE FLOWSHEET Latest Ref Rng & Units 10/27/2020 12/26/2020 02/15/2021 03/27/2021 05/07/2021 06/03/2021 06/26/2021 07/03/202107/3007/30/2021 EGFR, 21 20 20 20 EGFR, All Other >=60 mL/min/1.73m 17 17 17 17 17 (L) 16 (L) 16 (L) 15 (L) 14 (L) Creatinine 0.58 - 0.96 mg/dL 2.83 (H) 2.91 (H) 2.91 (H) 2.95 (H) 3.05 (H) 3.35 (H) 3.34 (H) 3.39 (H) 3.75 (H) BUN 7 - 21 mg/dL 25 (H) 34 (H) 33 (H) 37 (H) 26 (H) 34 (H) 28 (H) 35 (H) 38 (H) Sodium 136 - 144 mmol/L 140 138 139 134 (L) 137 136 139 136 136 Potassium 3.7 - 5.1 mmol/L 4.6 4.8 4.8 4.8 4.5 4.5 4.7 4.8 4.8 Chloride 97 - 105 mmol/L 109 (H) 107 (H) 104 100 106 (H) 102 105 106 (H) 104 CO2 22 - 30 mmol/L 19 (L) 21 (L) 23 22 20 (L) 22 20 (L) 16 (L) 18 (L) Glucose 74 - 99 mg/dL 111 (H) 124 (H) 110 (H) 188 (H) 285 (H) 173 (H) 107 (H) 177 (H) 172 (H) Calcium 8.5 - 10.2 mg/dL 8.8 8.7 9.1 8.6 8.3 (L) 8.7 9.1 9.1 8.5 Phosphorus 2.7 - 4.8 mg/dL 4.3 5.5 (H) 4.6 4.6 4.1 5.0 (H) 4.9 (H) 6.0 (H) 5.8 (H) Albumin 3.9 - 4.9 g/dL 3.6 (L) 3.4 (L) 3.8 (L) 3.5 (L) 3.6 (L) 3.8 (L) 3.8 (L) 3.8 (L) 3.7 (L) WBC 3.70 - 11.00 k/uL 5.47 5.21 5.56 6.01 5.75 6.12 5.09 5.01 HGB 11.5 - 15.5 g/dL 9.7 (L) 10.1 (L) 11.0 (L) 10.9 (L) 11.2 (L) 10.9 (L) 11.0 (L) 10.1 (L) 9.3 (L) HCT 36.0 - 46.0 % 33.6 (L) 34.6 (L) 34.0 (L) 34.6 (L) 36.4 34.7 (L) 32.6 (L) 30.8 (L) PLT 150 - 400 k/uL 188 185 182 188 239 220 201 197 PTH Intact 15 - 65 pg/mL 361 (H) 313 (H) 473 (H) Vitamin D25 Hydroxy 31.0 - 80.0 ng/mL 51.0 Kidney imaging: CT abdomen 07/03/21. Per radiology report: IMPRESSION: Aortic and iliac atherosclerotic vascular calcifications as described, no aneurysm. No acute findings in the abdomen or pelvis Kidneys: Mildly atrophic. No calculus, hydronephrosis or finding to suggest a cyst or mass in the unenhanced kidney. Kidney ultrasound ordered in June 2020, but not completed In 2014 kidneys were normal per ultrasound 09/02/14 ASSESSMENT: Pt is an 56 year old female being seen today with her brother in for CKD4/5 with proteinuria likely in the setting of diabetic nephropathy and unrecovered SERGIO related to NSAID use and hemodynamic fluctuations during past surgeries. PMH: gastric bypass, HTN, anemia, bipolar disorder, fibromyalgia, GERD, IBS, CASSIE and vitamin D deficiency. CKD Stage 5 with proteinuria likely in the setting of diabetic nephropathy and unrecovered SERGIO related to NSAID use and hemodynamic fluctuations during past surgeries. -Creatinine 3.75 mg/dL above baseline. Worsening despite management -Her baseline serum creatinine 2.3- 2.7 mg/dL -Abnormal creatinine since: 2015 -Proteinuria: Protein creatinine ratio 0.6 above goal, but improved from 1.4 Lisinopril resulted in hyperkalemia Abnormal since 2008 SGLT2 contraindicated d/t eGFR HTN/Volume: - lower at home (90s systolic intermittently in the past week) than in the office on current regimen. Feels has some degree of white coat syndrome. Initial average BP today 172/90, repeat manual was 142/86. Will monitor -Volume: euvolemic -Currently on labetalol 100mg bid -has compression stockings and wears in colder weather Metabolic/electrolytes: -hx of metabolic acidosis K+- 4.8 wnl Co2- 18 still below goal Taking oral sodium bicarbonate at 650mg bid. Will increase to 1300mg bid Anemia: -Hgb 9.3 below goal -denies overt losses -most recent colonoscopy 2015 with recommendation to repeat in 10 yrs -continue to monitor along with iron stores to assess for need of JENISE. Metabolic Bone: -Phos- 5.8 above goal. Recommend decreasing asher and phos rich foods. -Ca+: 8.5 wnl -Vitamin D: 51.0 wnl -PTH: 473 above goal Vitamin D level wnl. Will add calcitriol CV/Lipids: -hx of hyperlipidemia -on statin -recommend LDL goal of <100 to prevent progression of CKD. DM: -Last HgbA1c 9.7 above goal in April 2021 -follow up with PCP/endo PLAN: -Please call vascular surgery to arrange fistula placement -Please get labs drawn monthly. Standing orders have been placed -please increase your sodium bicarbonate to 1300mg (2 pills) twice a day -Please begin taking calcitriol 0.25mcg to help better balance your parathyroid and calcium levels. -Please take your blood pressure once a day for the next week and My Chart us. Please consider going to ER if it drops below 100/70 again -please limit phosphorous foods. Foods rich in phosphorous include: dairy, broccoli, beans, meats, whole wheat and grains, asher and chocolate. -Please go to ER if you have increased itching, hiccups, metallic taste, nausea, vomiting, increasefatigue, confusion or not making urine -Discussed need for good diabetes, blood pressure and cholesterol control -Recommend BP goal of 130/80 or less. Please contact the office if your blood pressure is less [id number] or higher than 160/90 -Recommend HgbA1c of 7 or less as CKD goal. -Follow low salt diet. (1/2 tsp salt) <2 grams -Please watch your protein intake and limit it to 3 ounces of protein per meal -please limit fluid intake to no more than 48-60 oz per day -Please avoid Advil, Ibuprofen(Motrin), Aleve(Naproxen), Meloxicam(Mobic), diclofenac and other pain/arthritis medications called NSAIDS. It is ok to take acetaminophen (Tylenol) for pain as needed -Please avoid contrast dye with imaging. If a provider wants to order CT or MRI with contrast, please let them know you have decreased kidney function. -Increase activity as tolerated. Referral to: vascular surgeon. Saira Jackson D.O [phone] in [place] or other locations that are convenient for you RTC [address] Dale Cochran CNP Spent 43 minutes in the visit and reviewing the chart. documented in this encounter[facility]05-[facility] History of Present illness Narrative* Ignacio Cheatham MD - 07/30/2021 2:24 PM EDT Patient presents with: Follow Up: ER 07/29/2021 HPI: Patient presents today for office visit for ER visit from yesterday. Seen at [facility]. Was feeling lightheaded and had a systolic bp in the 70s. Was active and attempting toclean the house. Had some abd discomfort yesterday as well but that is better today. Reviewing the labs her hb was minimally lower at 9.8. creatinine was up to 4.03. They gave her iv fluids. Has an appt in two days with nephrology. She already has labs ordered. No fever. No black or bloody stools. No diarrhea. No urinary issues. No chest pain, palpitations. No syncope. Her bp today is better. They did cut her labetalol to 50 mg po bid. Sugars have been good. MEDICATIONS: Current Outpatient Medications Medication Sig pioglitazone (ACTOS) 45 mg tablet Take 1 tablet by mouth once daily. flash glucose scanning reader (FREESTYLE FESTUS 2 READER) Use to check glucose 3 times daily and continuously. 1 per year. flash glucose sensor (FREESTYLE FESTUS 2 SENSOR) kit Use to check glucose 3 times daily and continuously. Change every 14 days. 6 per 90 day supply. dulaglutide (TRULICITY) 1.5 mg/0.5 mL pen injector Inject 1.5 mg subcutaneously one time a week. sertraline (ZOLOFT) 50 mg tablet Take 1 tablet by mouth once daily. glipiZIDE (GLUCOTROL) 10 mg tablet Take 1 tablet by mouth once daily. omeprazole (PRILOSEC) 20 mg capsule Take 1 capsule by mouth once daily. sodium bicarbonate 650 mg tablet Take 1 tablet by mouth twice daily. atorvastatin (LIPITOR) 40 mg tablet Take 1 tablet by mouth daily at bedtime. For cholesterol. labetalol (TRANDATE) 100 mg tablet Take 1 tablet by mouth twice daily. (Patient taking differently:Take 50 mg by mouth twice daily. ) famotidine (PEPCID) 20 mg tablet Take 1 tablet by mouth every other day. ondansetron orally disintegrating (ZOFRAN ODT) 4 mg disintegrating tablet Take 1 tablet by mouth every 8 hours as needed for nausea/vomiting. amitriptyline (ELAVIL) 100 mg tablet Take 1 tablet by mouth daily at bedtime. baclofen (LIORESAL) 10 mg tablet Take 1 tablet by mouth three times daily as needed. cholecalciferol (VITAMIN D-3) 5,000 unit tab Take 5,000 Units by mouth twice daily. aspirin, enteric coated (ADULT LOW DOSE ASPIRIN) 81 mg EC tablet Take 1 tablet by mouth once daily. Qpbgjkhe-Dz-Umx-Fe-FA ( VITAMIN) ORAL Tab Take 1 tablet by mouth once daily. Lancets lancets Test Two times a day. Insulin Dep? No E11.9 DM 2 EPINEPHrine 0.15 mg/0.15 mL (1:1,000) atIn by INJECTION(UNSPECIFIED PARENTERAL ROUTES) route. (Patient not taking: Reported on 06/28/2021 ) Current Facility-Administered Medications Medication Dose Route Frequency perflutren lipid microspheres 1.3 mL in NaCl (PF) 0.9% 10 mL injection (DEFINITY) INTRAVENOUS DIRECTED PRN sodium chloride 0.9 % (flush) 10 mL (BD POSIFLUSH) 10 mL INTRAVENOUS DIRECTED PRN ALLERGIES: ALLERGIES Allergen Reactions Vicodin [Hydrocodon* Vomiting Balsam 115 Benadryl [Diphenhyd* Rash, Itching Chamomile Asthma attack Codeine Vomiting, Other: See Comments Lisinopril Contraindication-Medical Surgical Acute renal failure Mold Nsaids (Non-Steroid* Other: See Comments Unable to take nsaids after having gastric bypass. Penicillins Anaphylaxis Seasonal Allergies Other: See Comments Nose runs, sneezing... Spider [Other] Tetracycline Rash Vanilla Extract PAST MEDICAL HISTORY Diagnosis Date Acute gastritis without mention of hemorrhage Allergic rhinitis Anaphylaxis Anemia Back pain Benign essential tremor Bipolar I disorder, most recent episode (or current) unspecified sectrum Bone mass Candidiasis, intertrigo Chronic kidney disease Contraceptive management Depression Diabetes ([facility]) Diarrhea DVT, lower extremity ([facility]) 08/2014 Right leg (6) Esophagitis Facial fracture due to fall ([facility]) Fatigue Fibromyalgia Fracture Fracture of shaft of fibula GERD (gastroesophageal reflux disease) HLD (hyperlipidemia) on tricor Hyperlipidemia Hypertension Hypomagnesemia Hypopotassemia IBS (irritable bowel syndrome) Insomnia Intertrigo Knee pain Morbid obesity ([facility]) 03/11/2011 Myalgia Nausea Neck pain Neuropathy Nocturnal leg cramps Non-cardiac chest pain Obesity CASSIE (obstructive sleep apnea) 07/08/2011 Other polyp of sinus Other specified anemias Personal history of unspecified urinary disorder PMH - PAST MEDICAL HISTORY OF left knee surgery x3 Pulmonary nodules Pyelonephritis, acute Restless leg Ruptured appendicitis S/P gastric bypass Snoring Type 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, not stated as uncontrolled(250.50) on oral medications and Lanuts Unspecified asthma(493.90) on inhalers Unspecified essential hypertension on medical management Upper abdominal pain Urinary frequency Vitamin D deficiency PAST SURGICAL HISTORY Procedure Laterality Date CHOLECYSTECTOMY 04/2011 COLONOSCOPY W/BIOPSY SINGLE/MULTIPLE 12/16/07 DILATION & CURETTAGE DX&/THER NONOBSTETRIC Dilation & curettage EGD TRANSORAL BIOPSY SINGLE/MULTIPLE 12/16/07 ESOPHAGOGASTRODUODENOSCOPY TRANSORAL DIAGNOSTIC age 14 EGD LAPAROSCOPIC APPENDECTOMY 05/16/11 MIDLINE INSERTION/CONSULT 07/29/2012 Lap Paul-en-Y gastric bypass PAST SURGICAL HISTORY OF age 14 left knee surgery, for dislocation PAST SURGICAL HISTORY OF age 5 warts removed PAST SURGICAL HISTORY OF 2007 laser surgery to both eyes for diabetic retinopathy PAST SURGICAL HISTORY OF 04/26/2008 Bilateral eye surgery- vitrectomy PAST SURGICAL HISTORY OF 06/2008 Left eye air fluid exchange PAST SURGICAL HISTORY OF 04/09, 07/07 retinal vitrectomies STRESS TEST 200p, 2015 Normal results TUBAL LIGATION HX ablation at the same time FAMILY HISTORY Problem Relation Age of Onset Diabetes Mother from renal disease Coronary Artery Disease Mother other (Diabetic Retinaopathy) Mother Cancer Mother uterine Stroke Mother Kidney Disease Mother Thyroid Father Thyroid Sister skin cancer Kidney Disease Sister Diabetes Sister Diabetes Sister Coronary Artery Disease Brother Diabetes Brother Coronary Artery Disease Brother Colon Cancer Other none Breast Cancer Other none Social History Tobacco Use Smoking status: Former Smoker Packs/day: 2.00 Years: 6.00 Pack years: 12.00 Types: Cigarettes Quit date: 07/31/1989 Years since quittin.0 Smokeless tobacco: Never Used Tobacco comment: Quit at age 24 Vaping Use Vaping Use: Never used Substance Use Topics Alcohol use: Not Currently Comment: rare Drug use: No Comment: Tried marijuana once - never used it again. Reviewed current medications, allergies, past medical history, surgical history, family history andsocial history today. REVIEW OF SYSTEMS All other reviewed and negative other than HPI. VITALS: BP 110/60 Pulse 89 Resp 16 Wt 101.2 kg (223 lb) LMP 09/20/2014 SpO2 98% BMI 33.91 kg/m Last 4 Encounter Wt Readings: Date: Wt: 07/30/2021 101.2 kg (223 lb) 07/03/2021 104.3 kg (230 lb) 07/03/2021 104.3 kg (230 lb) 07/03/2021 104.3 kg (230 lb) PHYSICAL EXAMINATION: General appearance: Well appearing, alert, in no acute distress, well-hydrated, well nourished. Skin: Skin color, texture, turgor normal, no suspicious rashes or lesions Head: Normocephalic, no masses, lesions, tenderness or abnormalities Eyes: Anicteric sclera. Pupils are equally round and reactive to light. Extraocular movements are intact. Lungs: Lungs clear to auscultation. No wheezing, rhonchi, rales Heart: RRR without murmur, gallop, or rubs. No ectopy Abdomen: Normal abdominal exam, Abdomen soft, non-tender. Bowel sounds normal. No masses, organomegaly Extremities: No deformities, edema, skin discoloration, clubbing or cyanosis. Good capillary refill. Musculoskeletal: No joint swelling, deformity, or tenderness Peripheral pulses: Normal Neuro: Negative. ASSESSMENT/PLAN: 1. Hypotension, unspecified hypotension type - ICD9: 458.9, ICD10: I95.9 (primary diagnosis) - get current labs that are ordered. Stay on current meds. Follow closely with nephro. - Red flags for re-assessment reviewed with patient in detail. 2. CKD (chronic kidney disease) Stage 4, GFR 15-29 ml/min - ICD9: 585.4, ICD10: N18.4 - as above. 3. Type 2 diabetes mellitus with stage 4 chronic kidney disease, without long- term current use of insulin (HCC) - ICD9: 250.40, 585.4, ICD10: E11.22, N18.4 improved control - Discussed watching her sugars closely with worsening renal function. Ignacio Cheatham [facility] Miscellaneous Notes* Telephone Encounter - Lynne Barber MA - 07/30/2021 1:41 PM EDT Spoke with patient and scheduled * Telephone Encounter - Lynne Barber MA - 07/30/2021 9:09 AM EDT Please advise? Okay to see [employer] BR[employer]ER Fab? * Telephone Encounter - Leticia Zaidi - 07/30/2021 8:32 AM EDT Margareth Arnold Lisa is calling Goldy Hunter DO today with Patient Update. Patient had blood drawn yesterday at [facility] and creatinine was high. She was told to see her paper cutter as soon as possible. Scheduling does not have a sooner appointment than October. Patient has been identified by name and birthdate. Duration of symptoms: N/A Person calling: self Call patient at: on cell [phone] (home) [phone] (work) [phone] (cell) Was an appointment scheduled: Yes: Date/Time: 11/11/2021 Closing statement: Symptom Call: Thank you for calling [facility], your call is very important. A nurse will call in approximately 2-4 hours during business hours. If this is an emergency, please contact 911. Leticia Sandoval Pss documented in this [facility]2022 Miscellaneous Notes* Telephone Encounter - Chrissy Arriola RN - 07/29/2021 8:09 PM EDT Reason for Call: low blood pressures (72/39-100/52, 93/43), abdominal pain (stabbing stomach pains) I feel like I will fall over like a log if I stand up Outcome: patient prefers to have sister drive her to ED Reason for Disposition Shock suspected (e.g., cold/pale/clammy skin, too weak to stand, low BP, rapid pulse) Protocols used: BLOOD PRESSURE - [id number] documented in this [facility]05-27-2022 Miscellaneous Notes* Telephone Encounter - Ashley Lira LPN - 07/26/2021 11:19 AM EDT shonda-- 06/26/21 Next 08/09/21 Last refill 03/26/21 90 with 3 Last labs 07/03/21 documented in this [facility]05-24-2022 Miscellaneous Notes* Telephone Encounter - Georgina Salmon RN - 07/23/2021 3:18 PM EDT Attempted to contact patient, no answer. Message left for patient to call office and ask for triagenurse. Georgina Salmon RN * Telephone Encounter - Efra Box Ma - 07/23/2021 1:36 PM EDT Please triage mychart message documented in this [facility]05-23-2022 Miscellaneous Notes* Telephone Encounter - Sarah Merida Ma - 07/22/2021 8:33 AM EDT Patient via mychart requesting refills as follows: Patient verified with insurance the Fest[employer] is covered and can be sent to mail order. Pending Prescriptions Disp Refills FREESTYLE FESTUS 2 READER 1 0 Sig: Use to check glucose 3 times daily and continuously. 1 per year. FREESTYLE FESTUS 2 SENSOR KIT 6 Each 3 Sig: Use to check glucose 3 times daily and continuously. Change every 14 days. 6 per 90 day supply. Please review and advise. Sarah Merida Ma [facility] Miscellaneous Notes* Telephone Encounter - Goldy Hunter DO - 07/18/2021 2:53 PM EDT Yes please. Fab. * Telephone Encounter - Nivia Leonard - 07/18/2021 2:45 PM EDT Pt cancelled her appt with you on 07/24/2021. Rescheduled for 11/11/21. She would like an earlier appt would you like me to try for a AP? Nivia Fuentes Wine Cellar Worker documented in this [facility] History of Present illness Narrative* Khushboo Bolanos MA - 07/03/2021 5:23 PM EDT Per order from Dr. Livingston, request for Bladder Scan. Patient identified by Name and . Patient positioned Supine to 30-degree angle on bed cart. Provided privacy by pulling curtain and covering patient's exposed Abdominal area with sheet. Bladder Scan performed and Urine amount noted of 174 ml . RNCoordinator Angel Bennett advised. Patient's area cleansed and assisted back to chair and stable while in room awaiting Kidney Team. Khushboo Bolanos MA * Linda Livingston MD - 07/03/2021 2:08 PM EDT [facility] Transplant Evaluation CC: Patient is a 56 year old female here for transplant candidacy evaluation. Reason for visit: here for evaluation to be a Kidney Transplant recipient. Referred by: Goldy Hunter [address] [place] [address] I will communicate with the referring provider by letter and/or shared electronic medical record. HPI: 56yo lady here for ktxp evaluation. CKD IV sec DM. Most recent eGFR 16 (May 2021).Uses wc for distance. Pt has severe knee pain. Long standing diabetic since age 24. Weight loss surgery in 2011 and lost 60lbs, IBS, diarrhea, w/incontinence of stool occasionally, UTI (last 03/2021), Former smoker, DVT x 1 (6 clots), asthma, fibromyalgia, pyelonephritis, anemia, bone mass, urinaryfrequency, anxiety, depression, bipolar 1 d/o, tubal ligation, left knee surgery, cholecystomy, ruptured appendix, pulmonary nodule, GERD and HLD. Pre emptive eGFR 16 (May 2021) Paul-en-y weight loss No LD No blood transfusion PVR 174cc (07/03/21) BP 175/80 (BP Site: Left Arm, BP Position: Sitting, BP Cuff Size: Large Adult) Pulse 91 Temp 36.2 C (97.2 F) (Temporal) Ht 172.7 cm (5' 8) Wt 104.3 kg (230 lb) LMP 09/20/2014 SpO2 99% BMI 34.97 kg/m H/o CKD IV 2/2 DM Not yet on dialysis H/o recurrent UTI's- has not seen a urologist for evaluation Denies any h/o GA or CVA Describes a h/o DVT x 6 (one occurrence, multiple clots? ) Not on any anticoagulation Ambulation limited 2/2 knee issues Prior transplant: No CKD: Yes: Cause of CKD: DM Advanced CKD, not on dialysis, current GFR: 17 (Mar 2021) Living Donors: No Residual UO: 2L DM: Yes Diagnosed at age 24 and Type 2 PAST MEDICAL HISTORY Diagnosis Date Acute gastritis without mention of hemorrhage Allergic rhinitis Anaphylaxis Anemia Back pain Benign essential tremor Bipolar I disorder, most recent episode (or current) unspecified sectrum Bone mass Candidiasis, intertrigo Chronic kidney disease Contraceptive management Depression Diabetes ([facility]) Diarrhea DVT, lower extremity ([facility]) 08/2014 Right leg (6) Esophagitis Facial fracture due to fall ([facility]) Fatigue Fibromyalgia Fracture Fracture of shaft of fibula GERD (gastroesophageal reflux disease) HLD (hyperlipidemia) on tricor Hyperlipidemia Hypertension Hypomagnesemia Hypopotassemia IBS (irritable bowel syndrome) Insomnia Intertrigo Knee pain Morbid obesity ([facility]) 03/11/2011 Myalgia Nausea Neck pain Neuropathy Nocturnal leg cramps Non-cardiac chest pain Obesity CASSIE (obstructive sleep apnea) 07/08/2011 Other polyp of sinus Other specified anemias Personal history of unspecified urinary disorder PMH - PAST MEDICAL HISTORY OF left knee surgery x3 Pulmonary nodules Pyelonephritis, acute Restless leg Ruptured appendicitis S/P gastric bypass Snoring Type 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, not stated as uncontrolled(250.50) on oral medications and Lanuts Unspecified asthma(493.90) on inhalers Unspecified essential hypertension on medical management Upper abdominal pain Urinary frequency Vitamin D deficiency PAST SURGICAL HISTORY Procedure Laterality Date CHOLECYSTECTOMY 04/2011 COLONOSCOPY W/BIOPSY SINGLE/MULTIPLE 12/16/07 DILATION & CURETTAGE DX&/THER NONOBSTETRIC Dilation & curettage EGD TRANSORAL BIOPSY SINGLE/MULTIPLE 12/16/07 ESOPHAGOGASTRODUODENOSCOPY TRANSORAL DIAGNOSTIC age 14 EGD LAPAROSCOPIC APPENDECTOMY 05/16/11 MIDLINE INSERTION/CONSULT 07/29/2012 Lap Paul-en-Y gastric bypass PAST SURGICAL HISTORY OF age 14 left knee surgery, for dislocation PAST SURGICAL HISTORY OF age 5 warts removed PAST SURGICAL HISTORY OF 2007 laser surgery to both eyes for diabetic retinopathy PAST SURGICAL HISTORY OF 04/26/2008 Bilateral eye surgery- vitrectomy PAST SURGICAL HISTORY OF 06/2008 Left eye air fluid exchange PAST SURGICAL HISTORY OF 04/09, 07/07 retinal vitrectomies STRESS TEST p, 2014 Normal results TUBAL LIGATION HX ablation at the same time Current Outpatient Medications Medication Sig dulaglutide (TRULICITY) 1.5 mg/0.5 mL pen injector Inject 1.5 mg subcutaneously one time a week. sertraline (ZOLOFT) 50 mg tablet Take 1 tablet by mouth once daily. traMADol (ULTRAM) 50 mg tablet Take 1 tablet by mouth every 6 hours as needed for pain for up to 7 days. glipiZIDE (GLUCOTROL) 10 mg tablet Take 1 tablet by mouth once daily. omeprazole (PRILOSEC) 20 mg capsule Take 1 capsule by mouth once daily. sodium bicarbonate 650 mg tablet Take 1 tablet by mouth twice daily. pioglitazone (ACTOS) 45 mg tablet Take 1 tablet by mouth once daily. atorvastatin (LIPITOR) 40 mg tablet Take 1 tablet by mouth daily at bedtime. For cholesterol. labetalol (TRANDATE) 100 mg tablet Take 1 tablet by mouth twice daily. famotidine (PEPCID) 20 mg tablet Take 1 tablet by mouth every other day. ondansetron orally disintegrating (ZOFRAN ODT) 4 mg disintegrating tablet Take 1 tablet by mouth every 8 hours as needed for nausea/vomiting. amitriptyline (ELAVIL) 100 mg tablet Take 1 tablet by mouth daily at bedtime. baclofen (LIORESAL) 10 mg tablet Take 1 tablet by mouth three times daily as needed. cholecalciferol (VITAMIN D-3) 5,000 unit tab Take 5,000 Units by mouth twice daily. aspirin, enteric coated (ADULT LOW DOSE ASPIRIN) 81 mg EC tablet Take 1 tablet by mouth once daily. Emaxwxjb-Qh-Rtr-Fe-FA ( VITAMIN) ORAL Tab Take 1 tablet by mouth once daily. Lancets lancets Test Two times a day. Insulin Dep? No E11.9 DM 2 EPINEPHrine 0.15 mg/0.15 mL (1:1,000) atIn by INJECTION(UNSPECIFIED PARENTERAL ROUTES) route. (Patient not taking: Reported on 06/28/2021 ) No current facility-administered medications for this visit. FAMILY HISTORY Problem Relation Age of Onset Diabetes Mother from renal disease Coronary Artery Disease Mother other (Diabetic Retinaopathy) Mother Cancer Mother uterine Stroke Mother Kidney Disease Mother Thyroid Father Thyroid Sister skin cancer Kidney Disease Sister Diabetes Sister Diabetes Sister Coronary Artery Disease Brother Diabetes Brother Coronary Artery Disease Brother Colon Cancer Other none Breast Cancer Other none Family Status Relation Name Status Mo Fa Sis Alive Sis Alive Bro Alive Bro Alive OTHER (Not Specified) OTHER (Not Specified) Social History Tobacco Use Smoking status: Former Smoker Packs/day: 2.00 Years: 6.00 Pack years: 12.00 Types: Cigarettes Quit date: 07/31/1989 Years since quittin.9 Smokeless tobacco: Never Used Tobacco comment: Quit at age 24 Vaping Use Vaping Use: Never used Substance Use Topics Alcohol use: Not Currently Comment: rare Drug use: No Comment: Tried marijuana once - never used it again. Pre-transplant testing: Cardiac: ECHO 09/02/2014 IMPRESSION: 1. Normal adequate dobutamine stress echocardiogram for ischemia. 2. No electrocardiographic changes or echocardiographic evidence of ischemia with dobutamine at 40mcg/kg/min and 0.25mg atropine at 88% of age-predicted maximum heart rate. 3. Dobutamine-induced chest pain without objective evidence of ischemia is nonspecific. CXR: Needs US Renal 09/02/2014 Findings: Multiplanar grayscale sonographic images were obtained through the kidneys and bladder. The right kidney measures 11.4 x 5.7 x 5.6 cm. The left kidney measures 10.3 x 5.7 x 6.1 cm. There is no gross renal parenchymal lesion, shadowing calculus or hydronephrosis. Kidneys demonstrate mild lobularity but grossly normal echotexture. Ultrasound images through the bladder demonstrate no gross evidence of bladder wall thickening. Impression: Normal ultrasound examination of the kidneys and bladder. PAP Test: 08/15/2020 FINAL DIAGNOSIS A. CERVICAL, SCREENING, FLUID Unsatisfactory for evaluation. Limited cellularity. Obscuring inflammation. HPV-Negative Mammogram: 08/15/2020 IMPRESSION: NEGATIVE There is no mammographic evidence of malignancy. A 1 year screening mammogram is recommended. Colonoscopy: 07/21/2015 Impression: - The entire examined colon is normal. - The entire examined colon is normal on direct and retroflexion views. - No specimens collected Sensitizations: Prior transplant: No Blood transfusions: Yes : No Immunizations: HBV series: Received early in work hx Pneumovax: Received, date 11/30/2008 Influenza vaccine: Received, date 02/18/2021 Covid vaccine: Received, date 08/15/2020 , 07/25/2020 Angel Dozier RN REVIEW OF SYSTEMS Constitutional: Negative for: Weight loss or gain, Fever. Chills, Night sweats Skin: Negative for: Rash ENT: Negative for: Hearing loss, Nosebleeds, Mouth sores, Trouble swallowing, Dry mouth Eyes: Negative for: Vision disturbance Cardiovascul ar: Cardiovascular negative Respiratory: Negative for: Cough, Difficulty breathing Gastrointestinal: Gastrointestinal negative Musculoskeletal: Negative for: Arthralgias, Myalgias Neurological: Negative for: Headaches, Dizziness Genitourinary: Negative for: Difficulty urinatiing All other systems reviewed and are negative. BP 175/80 (BP Site: Left Arm, BP Position: Sitting, BP Cuff Size: Large Adult) Pulse 91 Temp 36.2 C (97.2 F) (Temporal) Ht 172.7 cm (5' 8) Wt 104.3 kg (230 lb) LMP 09/20/2014 SpO2 99% BMI 34.97 kg/m General appearance: Well appearing, alert, in no acute distress, well-hydrated, well nourished. Skin: Skin color, texture, turgor normal, no suspicious rashes or lesions Head: Normocephalic, no masses, lesions, tenderness or abnormalities Eyes: Anicteric sclera. Extraocular movements are intact. Ears: External ears normal Back: Normal exam Lungs:Respirations unlabored Abdomen: Normal abdominal exam, Abdomen soft, non-tender. Bowel sounds normal. No masses, organomegaly Extremities: No deformities, edema, skin discoloration, clubbing or cyanosis. Good capillary refill. Musculoskeletal: No joint swelling, deformity, or tenderness Peripheral pulses: Normal Neuro: Gait normal. Sensation grossly intact. CT reviewed, iliacs suitable 56 y/o F with h/o CKD IV 2/2 DM, not yet on dialysis. Long standing diabetic since age 24. Paul en y gastric bypass in 2011 and lost 60lbs, IBS, diarrhea, w/incontinence of stool occasionally, UTI (last 03/2021), Former smoker, DVT, asthma, fibromyalgia, pyelonephritis, anemia, bone mass, urinary frequency, UTI's, anxiety, depression, bipolar 1 d/o, tubal ligation, left knee surgery, cholecystomy, ruptured appendix, pulmonary nodule, GERD and HLD. -The kidney transplant operation was discussed with the patient at length, and all questions were answered to the patient's satisfaction. Risks, benefits, and alternatives discussed. Risks discussed include but are not limited to: bleeding, infection, , GA, DVT, PE, CVA, risk of damage to surrounding structures, risk of lymphocele, urine leak, stricture, wound complications, lower extremity complications, risk of delayed graft function, rejection, and primary nonfunction. Also discussed the need for immunosuppressant medications for the lifetime of the allograft and the associated risks of infection and malignancy over time -Needs cysto eval recurrent UTI's. Patient may pursue local Urology evaluation. [facility] -Vascular medicine eval possible h/o hypercoaguable state -The patient is an acceptable surgical candidate for renal transplant pending acceptable findings on the remainder of the pre-transplant evaluation Linda Livingston MD documented in this [facility] Instructions* Patient Instructions* Latricia Deleon RD - 07/03/2021 4:11 PM EDT Nutrition Intervention 07/03/2021: Plate method for Lunch/Dinner 1/2 plate vegetables, 1/4 plate starch or whole grains, 1/4 plate lean sources of protein Eat balanced breakfast and snacks (protein+carbohydrates) Low-Sodium Diet *2000mg or less sodium/day *do not add any additional salt to food *use sodium-free seasonings like herbs and spices *avoid canned foods *avoid processed foods *avoid frozen foods Follow Low-Phosphorus diet 800-1000mg/day documented in this [facility]-2022 History of Present illness Narrative* Luis Mejia MD - 07/03/2021 2:30 PM EDT [facility] Transplant Evaluation CC: Patient is a 56 year old female here for transplant candidacy evaluation. Reason for visit: here for evaluation to be a Kidney Transplant recipient. Referred by: Goldy Hunter [address] [place] [address] I will communicate with the referring provider by letter and/or shared electronic medical record. HPI: 56yo lady here for ktxp evaluation. CKD IV sec DM. Most recent eGFR 16 (May 2021).Uses wc for distance. Pt has severe knee pain. Long standing diabetic since age 24. Weight loss surgery in 2011 and lost 60lbs, IBS, diarrhea, w/incontinence of stool occasionally, UTI (last 03/2021), Former smoker, DVT x 6, asthma, fibromyalgia, pyelonephritis, anemia, bone mass, urinary frequency, anxiety, depression, bipolar 1 d/o, tubal ligation, left knee surgery, cholecystomy, ruptured appendix, pulmonary nodule, GERD and HLD. Pre emptive eGFR 16 (May 2021) Paul-en-y weight loss No LD No blood transfusion PAOD (TIA non-embolic, CVA non-embolic, amputation, carotid artery stenosis, abnormal PVRs, claudication history, decreased pulses, etc.):NO Stroke: NO Claudication: NO Carotid Artery Stenosis: NO Malignancy (including skin cancer): No Hypercoagulable (history of DVT/PE, miscarriages, prior use of anticoagulation, etc.):Yes Prior transplant: No CKD: Yes: Cause of CKD: DM Advanced CKD, not on dialysis, current GFR: 17 (Mar 2021) Living Donors: No Residual UO: 2L DM: Yes Diagnosed at age 24 and Type 2 PAST MEDICAL HISTORY Diagnosis Date Acute gastritis without mention of hemorrhage Allergic rhinitis Anaphylaxis Anemia Back pain Benign essential tremor Bipolar I disorder, most recent episode (or current) unspecified sectrum Bone mass Candidiasis, intertrigo Chronic kidney disease Contraceptive management Depression Diabetes (HCC) Diarrhea DVT, lower extremity (HCC) 08/2014 Right leg (6) Esophagitis Facial fracture due to fall ([facility]) Fatigue Fibromyalgia Fracture Fracture of shaft of fibula GERD (gastroesophageal reflux disease) HLD (hyperlipidemia) on tricor Hyperlipidemia Hypertension Hypomagnesemia Hypopotassemia IBS (irritable bowel syndrome) Insomnia Intertrigo Knee pain Morbid obesity (HCC) 03/11/2011 Myalgia Nausea Neck pain Neuropathy Nocturnal leg cramps Non-cardiac chest pain Obesity CASSIE (obstructive sleep apnea) 07/08/2011 Other polyp of sinus Other specified anemias Personal history of unspecified urinary disorder PMH - PAST MEDICAL HISTORY OF left knee surgery x3 Pulmonary nodules Pyelonephritis, acute Restless leg Ruptured appendicitis S/P gastric bypass Snoring Type 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, not stated as uncontrolled(250.50) on oral medications and Lanuts Unspecified asthma(493.90) on inhalers Unspecified essential hypertension on medical management Upper abdominal pain Urinary frequency Vitamin D deficiency PAST SURGICAL HISTORY Procedure Laterality Date CHOLECYSTECTOMY 04/2011 COLONOSCOPY W/BIOPSY SINGLE/MULTIPLE 12/16/07 DILATION & CURETTAGE DX&/THER NONOBSTETRIC Dilation & curettage EGD TRANSORAL BIOPSY SINGLE/MULTIPLE 12/16/07 ESOPHAGOGASTRODUODENOSCOPY TRANSORAL DIAGNOSTIC age 14 EGD LAPAROSCOPIC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 nephrology-due for repeat labs, having repeated today. PAST MEDICAL HISTORY Diagnosis Date Acute gastritis without mention of hemorrhage Allergic rhinitis Anaphylaxis Anemia Back pain Benign essential tremor Bipolar I disorder, most recent episode (or current) unspecified sectrum Bone mass Candidiasis, intertrigo Chronic kidney disease Contraceptive management Depression Diabetes ([facility]) Diarrhea DVT, lower extremity ([facility]) 08/2014 Right leg (6) Esophagitis Facial fracture due to fall ([facility]) Fatigue Fibromyalgia Fracture Fracture of shaft of fibula GERD (gastroesophageal reflux disease) HLD (hyperlipidemia) on tricor Hyperlipidemia Hypertension Hypomagnesemia Hypopotassemia IBS (irritable bowel syndrome) Insomnia Intertrigo Knee pain Morbid obesity ([facility]) 03/11/2011 Myalgia Nausea Neck pain Neuropathy Nocturnal leg cramps Non-cardiac chest pain Obesity CASSIE (obstructive sleep apnea) 07/08/2011 Other polyp of sinus Other specified anemias Personal history of unspecified urinary disorder PMH - PAST MEDICAL HISTORY OF left knee surgery x3 Pulmonary nodules Pyelonephritis, acute Restless leg Ruptured appendicitis S/P gastric bypass Snoring Type 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, not stated as uncontrolled(250.50) on oral medications and Lanuts Unspecified asthma(493.90) on inhalers Unspecified essential hypertension on medical management Upper abdominal pain Urinary frequency Vitamin D deficiency ALLERGIES Vicodin [Hydrocodone-Acetaminophen], Balsam 115, Benadryl [Diphenhydramine Hcl], Chamomile, Codeine, Lisinopril, Mold, Nsaids (Non- Steroidal Anti-Inflammatory Drug), Penicillins, Seasonal Allergies, Spider [Other], Tetracycline, and Vanilla Extract MEDICATIONS Current Outpatient Medications Medication Sig glipiZIDE (GLUCOTROL) 10 mg tablet Take 1 tablet by mouth once daily. omeprazole (PRILOSEC) 20 mg capsule Take 1 capsule by mouth once daily. sertraline (ZOLOFT) 25 mg tablet Take 1 tablet by mouth once daily. sodium bicarbonate 650 mg tablet Take 1 tablet by mouth twice daily. pioglitazone (ACTOS) 45 mg tablet Take 1 tablet by mouth once daily. atorvastatin (LIPITOR) 40 mg tablet Take 1 tablet by mouth daily at bedtime. For cholesterol. labetalol (TRANDATE) 100 mg tablet Take 1 tablet by mouth twice daily. famotidine (PEPCID) 20 mg tablet Take 1 tablet by mouth every other day. ondansetron orally disintegrating (ZOFRAN ODT) 4 mg disintegrating tablet Take 1 tablet by mouth every 8 hours as needed for nausea/vomiting. amitriptyline (ELAVIL) 100 mg tablet Take 1 tablet by mouth daily at bedtime. ondansetron orally disintegrating (ZOFRAN ODT) 4 mg disintegrating tablet Take 1 tablet by mouth every 6 hours as needed for nausea/vomiting. dulaglutide (TRULICITY) 0.75 mg/0.5 mL pen injector Inject 0.75 mg subcutaneously one time a week. Inject dose once per week. Discard Pen After labetalol (TRANDATE) 200 mg tablet Take 0.5 tablets by mouth twice daily. baclofen (LIORESAL) 10 mg tablet Take 1 tablet by mouth three times daily as needed. Lancets lancets Test Two times a day. Insulin Dep? No E11.9 DM 2 cholecalciferol (VITAMIN D-3) 5,000 unit tab Take 5,000 Units by mouth once daily. aspirin, enteric coated (ADULT LOW DOSE ASPIRIN) 81 mg EC tablet Take 1 tablet by mouth once daily. EPINEPHrine 0.15 mg/0.15 mL (1:1,000) atIn by INJECTION(UNSPECIFIED PARENTERAL ROUTES) route. [id number] ( VITAMIN) ORAL Tab Take 1 tablet by mouth once daily. No current facility-administered medications for this visit. SOCIAL HISTORY Social History Tobacco Use Smoking status: Former Smoker Packs/day: 2.00 Years: 6.00 Pack years: 12.00 Types: Cigarettes Quit date: 07/31/1989 Years since quittin.8 Smokeless tobacco: Never Used Tobacco comment: Quit at age 24 Vaping Use Vaping Use: Never used Substance Use Topics Alcohol use: Not Currently Comment: rare Drug use: No Comment: Tried marijuana once - never used it again. REVIEW OF SYSTEMS See HPI OBJECTIVE: BP 138/68 Pulse 86 Temp (!) 35.9 C (96.7 F) Resp 20 Wt 101.7 kg (224 lb 3.2 oz) LMP 09/20/2014 SpO2 100% BMI 34.09 kg/m APPEARANCE Well appearing, alert, in no acute distress, well-hydrated, well nourished. EYES PERRLA, conjunctiva and sclera normal. EARS External ears normal, canals clear. TMs normal GAYATHRI NOSE/SINUS Nares normal. Septum midline. Mucosa normal. No drainage or sinus tenderness. THROAT normal, no erythema NECK Supple, no adenopathy; HEART RRR with normal S1 and S2 LUNG clear to auscultation, No wheezing, rhonchi, rales. ABDOMEN soft, mild discomfort upper abdomen, no rebound, rigidity or guarding. Negative Kramer's and Mcburney's ASSESSMENT/PLAN: 1. Vomiting and diarrhea - ICD9: 787.03, 787.91, ICD10: R11.10, R19.7 (primary diagnosis) Improving PMH gastric bypass-patient is having normal flatulence, vomiting has resolved, no significant abdominal pain, afebrile. Reviewed red flags and when to seek care sooner. Good hydration. Repeating renal labs today-follow with nephrology 2. Nausea - ICD9: 787.02, ICD10: R11.0 Refill per patient request - ONDANSETRON 4 MG DISINTEGRATING TABLET Note for work per patient request. The patient indicates understanding of these issues and agrees with the plan. Stacy Schmitz PA-C [facility] History of Present illness Narrative* Jenni Bell, RT(R) - 10/31/2020 3:50 PM EDT Radiology Service Progress Note PATIENT NAME: Margareth Gonzalez DATE OF SERVICE: October 31, 2020 TIME: 3:52 PM PATIENT IDENTITY VERIFICATION COMPLETED USING TWO (2) IDENTIFIERS: Name and Date of confirmedby patient verbally. FALL SCREENING: Has the patient had 2 falls in the last year or 1 fall with injury or currently using an Ambulatory Assistive Device (Walker, Cane, Wheelchair, Crutches, etc.)? Yes, Patient High Riskfor Falls What interventions were put in place to prevent falls during this visit? Instructed Patient to Callfor Help if Needed, Offered Assistance with Transfers/Clothing, Instructed Patient to Remain Seated(Not on Exam Table) Until Exam and Increased Observations by Caregivers PATIENT GENDER DATA: Female. status: : No status: NO. PATIENT RELEVANT IMPLANT DATA REVIEWED: Not Applicable RADIOLOGY DEPARTMENT: General X-ray: Exam(s) Completed: Rib X-Ray: Right Spine X-Ray(s): Cervical AP / LAT / OBL PERIPHERAL IV DATA: Not applicable SIGNED BY: RT Gifty(R) October 31, 2020 3:52 PM documented in this [facility] History of Past illness Narrative* Problem Noted Date Resolved Date Other chronic pain 04/16/2017 02/21/2019 Other adjustment reaction wi th predominant disturbance of other emotions 05/02/2011 04/20/2020 Eating disorder NEC 05/02/2011 04/20/2020 Morbid obesity 03/11/2011 12/16/2018 Biliary colic 03/09/2011 04/20/2020 Xerosis of skin 02/13/2011 04/20/2020 Tendonitis 02/26/2010 04/20/2020 ACL tear 11/26/2009 04/20/2020 Knee pain 11/26/2009 04/20/2020 Generalized pain 10/01/2009 02/21/2019 Chronic pain 09/24/2009 02/21/2019 Elbow joint pain 09/24/2009 04/20/2020 Ulcer of heel and midfoot 02/08/20092017 Pain in limb 06/29/2008 02/21/2019 Dermatophytosis of nail 06/29/2008 04/20/19 21 Corns and callosities 06/29/2008 04/16/2017 Essential hypertension, benign 03/27/2008 0 03/16/2015 DM w/o complication type II, uncontrolled 200812/07/2014 Overview: A1c 15.7 as of 2005 per old labs Down to 7.2 as of 2009 -- -CHECKING TWICE DAILY Routine gynecological examination 03/09/2008 04/16/2017 DIABETIC FOOT ULCER 03/09/2008 04/16/2017 Overview: [facility] documented as of this encounter (statuses as of 06/03/2021) [facility] of Past illness Narrative* Problem Noted Date Resolved Date Other chronic pain 04/16/2017 02/21/2019 Other adjustment reaction wi th predominant disturbance of other emotions 05/02/2011 04/20/2020 Eating disorder NEC 05/02/2011 04/20/2020 Morbid obesity 03/11/2011 12/16/2018 Biliary colic 03/09/2011 04/20/2020 Xerosis of skin 02/13/2011 04/20/2020 Tendonitis 02/26/2010 04/20/2020 ACL tear 11/26/2009 04/20/2020 Knee pain 11/26/2009 04/20/2020 Generalized pain 10/01/2009 02/21/2019 Chronic pain 09/24/2009 02/21/2019 Elbow joint pain 09/24/2009 04/20/2020 Ulcer of heel and midfoot 02/08/20092017 Pain in limb 06/29/2008 02/21/2019 Dermatophytosis of nail 06/29/2008 04/20/19 21 Corns and callosities 06/29/2008 04/16/2017 Essential hypertension, benign 03/27/2008 0 03/16/2015 DM w/o complication type II, uncontrolled 200812/07/2014 Overview: A1c 15.7 as of 2005 per old labs Down to 7.2 as of 2009 -- -CHECKING TWICE DAILY Routine gynecological examination 03/09/2008 04/16/2017 DIABETIC FOOT ULCER 03/09/2008 04/16/2017 Overview: [facility] documented as of this encounter (statuses as of 06/05/2021) [facility] of Past illness Narrative* Problem Noted Date Resolved Date Other chronic pain 04/16/2017 02/21/2019 Other adjustment reaction wi th predominant disturbance of other emotions 05/02/2011 04/20/2020 Eating disorder NEC 05/02/2011 04/20/2020 Morbid obesity 03/11/2011 12/16/2018 Biliary colic 03/09/2011 04/20/2020 Xerosis of skin 02/13/2011 04/20/2020 Tendonitis 02/26/2010 04/20/2020 ACL tear 11/26/2009 04/20/2020 Knee pain 11/26/2009 04/20/2020 Generalized pain 10/01/2009 02/21/2019 Chronic pain 09/24/2009 02/21/2019 Elbow joint pain 09/24/2009 04/20/2020 Ulcer of heel and midfoot 02/08/20092017 Pain in limb 06/29/2008 02/21/2019 Dermatophytosis of nail 06/29/2008 04/20/19 21 Corns and callosities 06/29/2008 04/16/2017 Essential hypertension, benign 03/27/2008 0 03/16/2015 DM w/o complication type II, uncontrolled 200812/07/2014 Overview: A1c 15.7 as of 2005 per old labs Down to 7.2 as of 2009 -- -CHECKING TWICE DAILY Routine gynecological examination 03/09/2008 04/16/2017 DIABETIC FOOT ULCER 03/09/2008 04/16/2017 Overview: Follows with [facility], Dr. Santiago Montero documented as of this encounter (statuses as of 06/06/2021) [facility] illness Narrative* Problem Noted Date Resolved Date Other chronic pain 04/16/2017 02/21/2019 Other adjustment reaction wi th predominant disturbance of other emotions 05/02/2011 04/20/2020 Eating disorder NEC 05/02/2011 04/20/2020 Morbid obesity 03/11/2011 12/16/2018 Biliary colic 03/09/2011 04/20/2020 Xerosis of skin 02/13/2011 04/20/2020 Tendonitis 02/26/2010 04/20/2020 ACL tear 11/26/2009 04/20/2020 Knee pain 11/26/2009 04/20/2020 Generalized pain 10/01/2009 02/21/2019 Chronic pain 09/24/2009 02/21/2019 Elbow joint pain 09/24/2009 04/20/2020 Ulcer of heel and midfoot 02/08/20092017 Pain in limb 06/29/2008 02/21/2019 Dermatophytosis of nail 06/29/2008 04/20/19 21 Corns and callosities 06/29/2008 04/16/2017 Essential hypertension, benign 03/27/2008 0 03/16/2015 DM w/o complication type II, uncontrolled 200812/07/2014 Overview: A1c 15.7 as of 2005 per old labs Down to 7.2 as of 2009 -- -CHECKING TWICE DAILY Routine gynecological examination 03/09/2008 04/16/2017 DIABETIC FOOT ULCER 03/09/2008 04/16/2017 Overview: [facility] Dr. Henderson documented as of this encounter (statuses as of 06/14/2021) [facility] illness Narrative* Problem Noted Date Resolved Date Other chronic pain 04/16/2017 02/21/2019 Other adjustment reaction wi th predominant disturbance of other emotions 05/02/2011 04/20/2020 Eating disorder NEC 05/02/2011 04/20/2020 Morbid obesity 03/11/2011 12/16/2018 Biliary colic 03/09/2011 04/20/2020 Xerosis of skin 02/13/2011 04/20/2020 Tendonitis 02/26/2010 04/20/2020 ACL tear 11/26/2009 04/20/2020 Knee pain 11/26/2009 04/20/2020 Generalized pain 10/01/2009 02/21/2019 Chronic pain 09/24/2009 02/21/2019 Elbow joint pain 09/24/2009 04/20/2020 Ulcer of heel and midfoot 02/08/20092017 Pain in limb 06/29/2008 02/21/2019 Dermatophytosis of nail 06/29/2008 04/20/19 21 Corns and callosities 06/29/2008 04/16/2017 Essential hypertension, benign 03/27/2008 0 03/16/2015 DM w/o complication type II, uncontrolled 200812/07/2014 Overview: A1c 15.7 as of 2005 per old labs Down to 7.2 as of 2009 -- -CHECKING TWICE DAILY Routine gynecological examination 03/09/2008 04/16/2017 DIABETIC FOOT ULCER 03/09/2008 04/16/2017 Overview: Follows with W[facility], [facility], Dr. Henderson documented as of this encounter (statuses as of 06/26/2021) [facility] Narrative* Problem Noted Date Resolved Date Other chronic pain 04/16/2017 02/21/2019 Other adjustment reaction wi th predominant disturbance of other emotions 05/02/2011 04/20/2020 Eating disorder NEC 05/02/2011 04/20/2020 Morbid obesity 03/11/2011 12/16/2018 Biliary colic 03/09/2011 04/20/2020 Xerosis of skin 02/13/2011 04/20/2020 Tendonitis 02/26/2010 04/20/2020 ACL tear 11/26/2009 04/20/2020 Knee pain 11/26/2009 04/20/2020 Generalized pain 10/01/2009 02/21/2019 Chronic pain 09/24/2009 02/21/2019 Elbow joint pain 09/24/2009 04/20/2020 Ulcer of heel and midfoot 02/08/20092017 Pain in limb 06/29/2008 02/21/2019 Dermatophytosis of nail 06/29/2008 04/20/19 21 Corns and callosities 06/29/2008 04/16/2017 Essential hypertension, benign 03/27/2008 0 03/16/2015 DM w/o complication type II, uncontrolled 200812/07/2014 Overview: A1c 15.7 as of 2005 per old labs Down to 7.2 as of 2009 -- -CHECKING TWICE DAILY Routine gynecological examination 03/09/2008 04/16/2017 DIABETIC FOOT ULCER 03/09/2008 04/16/2017 Overview: [facility] Horn documented as of this encounter (statuses as of 06/26/2021) [facility] illness Narrative* Problem Noted Date Resolved Date Other chronic pain 04/16/2017 02/21/2019 Other adjustment reaction wi th predominant disturbance of other emotions 05/02/2011 04/20/2020 Eating disorder NEC 05/02/2011 04/20/2020 Morbid obesity 03/11/2011 12/16/2018 Biliary colic 03/09/2011 04/20/2020 Xerosis of skin 02/13/2011 04/20/2020 Tendonitis 02/26/2010 04/20/2020 ACL tear 11/26/2009 04/20/2020 Knee pain 11/26/2009 04/20/2020 Generalized pain 10/01/2009 02/21/2019 Chronic pain 09/24/2009 02/21/2019 Elbow joint pain 09/24/2009 04/20/2020 Ulcer of heel and midfoot 02/08/20092017 Pain in limb 06/29/2008 02/21/2019 Dermatophytosis of nail 06/29/2008 04/20/19 21 Corns and callosities 06/29/2008 04/16/2017 Essential hypertension, benign 03/27/2008 0 03/16/2015 DM w/o complication type II, uncontrolled 200812/07/2014 Overview: A1c 15.7 as of 2005 per old labs Down to 7.2 as of 2009 -- -CHECKING TWICE DAILY Routine gynecological examination 03/09/2008 04/16/2017 DIABETIC FOOT ULCER 03/09/2008 04/16/2017 Overview: [facility] Horn documented as of this encounter (statuses as of 06/28/2021) [facility] Narrative* Problem Noted Date Resolved Date Other chronic pain 04/16/2017 02/21/2019 Other adjustment reaction wi th predominant disturbance of other emotions 05/02/2011 04/20/2020 Eating disorder NEC 05/02/2011 04/20/2020 Morbid obesity 03/11/2011 12/16/2018 Biliary colic 03/09/2011 04/20/2020 Xerosis of skin 02/13/2011 04/20/2020 Tendonitis 02/26/2010 04/20/2020 ACL tear 11/26/2009 04/20/2020 Knee pain 11/26/2009 04/20/2020 Generalized pain 10/01/2009 02/21/2019 Chronic pain 09/24/2009 02/21/2019 Elbow joint pain 09/24/2009 04/20/2020 Ulcer of heel and midfoot 02/08/20092017 Pain in limb 06/29/2008 02/21/2019 Dermatophytosis of nail 06/29/2008 04/20/19 21 Corns and callosities 06/29/2008 04/16/2017 Essential hypertension, benign 03/27/2008 0 03/16/2015 DM w/o complication type II, uncontrolled 200812/07/2014 Overview: A1c 15.7 as of 2005 per old labs Down to 7.2 as of 2009 -- -CHECKING TWICE DAILY Routine gynecological examination 03/09/2008 04/16/2017 DIABETIC FOOT ULCER 03/09/2008 04/16/2017 Overview: Follows with [facility], [facility], Dr. Henderson documented as of this encounter (statuses as of 07/03/2021) [facility] Narrative* Problem Noted Date Resolved Date Other chronic pain 04/16/2017 02/21/2019 Other adjustment reaction wi th predominant disturbance of other emotions 05/02/2011 04/20/2020 Eating disorder NEC 05/02/2011 04/20/2020 Morbid obesity 03/11/2011 12/16/2018 Biliary colic 03/09/2011 04/20/2020 Xerosis of skin 02/13/2011 04/20/2020 Tendonitis 02/26/2010 04/20/2020 ACL tear 11/26/2009 04/20/2020 Knee pain 11/26/2009 04/20/2020 Generalized pain 10/01/2009 02/21/2019 Chronic pain 09/24/2009 02/21/2019 Elbow joint pain 09/24/2009 04/20/2020 Ulcer of heel and midfoot 02/08/20092017 Pain in limb 06/29/2008 02/21/2019 Dermatophytosis of nail 06/29/2008 04/20/19 21 Corns and callosities 06/29/2008 04/16/2017 Essential hypertension, benign 03/27/2008 0 03/16/2015 DM w/o complication type II, uncontrolled 200812/07/2014 Overview: A1c 15.7 as of 2005 per old labs Down to 7.2 as of 2009 -- -CHECKING TWICE DAILY Routine gynecological examination 03/09/2008 04/16/2017 DIABETIC FOOT ULCER 03/09/2008 04/16/2017 Overview: Follows with [facility], [facility], Dr. Henderson documented as of this encounter (statuses as of 07/03/2021) [facility] Narrative* Problem Noted Date Resolved Date Other chronic pain 04/16/2017 02/21/2019 Other adjustment reaction wi th predominant disturbance of other emotions 05/02/2011 04/20/2020 Eating disorder NEC 05/02/2011 04/20/2020 Morbid obesity 03/11/2011 12/16/2018 Biliary colic 03/09/2011 04/20/2020 Xerosis of skin 02/13/2011 04/20/2020 Tendonitis 02/26/2010 04/20/2020 ACL tear 11/26/2009 04/20/2020 Knee pain 11/26/2009 04/20/2020 Generalized pain 10/01/2009 02/21/2019 Chronic pain 09/24/2009 02/21/2019 Elbow joint pain 09/24/2009 04/20/2020 Ulcer of heel and midfoot 02/08/20092017 Pain in limb 06/29/2008 02/21/2019 Dermatophytosis of nail 06/29/2008 04/20/19 21 Corns and callosities 06/29/2008 04/16/2017 Essential hypertension, benign 03/27/2008 0 03/16/2015 DM w/o complication type II, uncontrolled 200812/07/2014 Overview: A1c 15.7 as of 2005 per old labs Down to 7.2 as of 2009 -- -CHECKING TWICE DAILY Routine gynecological examination 03/09/2008 04/16/2017 DIABETIC FOOT ULCER 03/09/2008 04/16/2017 Overview: [facility] Horn documented as of this encounter (statuses as of 07/03/2021) [facility] Narrative* Problem Noted Date Resolved Date Other chronic pain 04/16/2017 02/21/2019 Other adjustment reaction wi th predominant disturbance of other emotions 05/02/2011 04/20/2020 Eating disorder NEC 05/02/2011 04/20/2020 Morbid obesity 03/11/2011 12/16/2018 Biliary colic 03/09/2011 04/20/2020 Xerosis of skin 02/13/2011 04/20/2020 Tendonitis 02/26/2010 04/20/2020 ACL tear 11/26/2009 04/20/2020 Knee pain 11/26/2009 04/20/2020 Generalized pain 10/01/2009 02/21/2019 Chronic pain 09/24/2009 02/21/2019 Elbow joint pain 09/24/2009 04/20/2020 Ulcer of heel and midfoot 02/08/20092017 Pain in limb 06/29/2008 02/21/2019 Dermatophytosis of nail 06/29/2008 04/20/19 21 Corns and callosities 06/29/2008 04/16/2017 Essential hypertension, benign 03/27/2008 0 03/16/2015 DM w/o complication type II, uncontrolled 200812/07/2014 Overview: A1c 15.7 as of 2005 per old labs Down to 7.2 as of 2009 -- -CHECKING TWICE DAILY Routine gynecological examination 03/09/2008 04/16/2017 DIABETIC FOOT ULCER 03/09/2008 04/16/2017 Overview: [facility] Horn documented as of this encounter (statuses as of 07/03/2021) [facility] Narrative* Problem Noted Date Resolved Date Other chronic pain 04/16/2017 02/21/2019 Other adjustment reaction wi th predominant disturbance of other emotions 05/02/2011 04/20/2020 Eating disorder NEC 05/02/2011 04/20/2020 Morbid obesity 03/11/2011 12/16/2018 Biliary colic 03/09/2011 04/20/2020 Xerosis of skin 02/13/2011 04/20/2020 Tendonitis 02/26/2010 04/20/2020 ACL tear 11/26/2009 04/20/2020 Knee pain 11/26/2009 04/20/2020 Generalized pain 10/01/2009 02/21/2019 Chronic pain 09/24/2009 02/21/2019 Elbow joint pain 09/24/2009 04/20/2020 Ulcer of heel and midfoot 02/08/20092017 Pain in limb 06/29/2008 02/21/2019 Dermatophytosis of nail 06/29/2008 04/20/19 21 Corns and callosities 06/29/2008 04/16/2017 Essential hypertension, benign 03/27/2008 0 03/16/2015 DM w/o complication type II, uncontrolled 200812/07/2014 Overview: A1c 15.7 as of 2005 per old labs Down to 7.2 as of 2009 -- -CHECKING TWICE DAILY Routine gynecological examination 03/09/2008 04/16/2017 DIABETIC FOOT ULCER 03/09/2008 04/16/2017 Overview: Follows with [facility], Dr. Santiago Montero documented as of this encounter (statuses as of 07/04/2021) [facility] Narrative* Problem Noted Date Resolved Date Other chronic pain 04/16/2017 02/21/2019 Other adjustment reaction wi th predominant disturbance of other emotions 05/02/2011 04/20/2020 Eating disorder NEC 05/02/2011 04/20/2020 Morbid obesity 03/11/2011 12/16/2018 Biliary colic 03/09/2011 04/20/2020 Xerosis of skin 02/13/2011 04/20/2020 Tendonitis 02/26/2010 04/20/2020 ACL tear 11/26/2009 04/20/2020 Knee pain 11/26/2009 04/20/2020 Generalized pain 10/01/2009 02/21/2019 Chronic pain 09/24/2009 02/21/2019 Elbow joint pain 09/24/2009 04/20/2020 Ulcer of heel and midfoot 02/08/20092017 Pain in limb 06/29/2008 02/21/2019 Dermatophytosis of nail 06/29/2008 04/20/19 21 Corns and callosities 06/29/2008 04/16/2017 Essential hypertension, benign 03/27/2008 0 03/16/2015 DM w/o complication type II, uncontrolled 200812/07/2014 Overview: A1c 15.7 as of 2005 per old labs Down to 7.2 as of 2009 -- -CHECKING TWICE DAILY Routine gynecological examination 03/09/2008 04/16/2017 DIABETIC FOOT ULCER 03/09/2008 04/16/2017 Overview: Follows with [facility], [facility], Dr. Henderson documented as of this encounter (statuses as of 07/04/2021) [facility] Narrative* Problem Noted Date Resolved Date Other chronic pain 04/16/2017 02/21/2019 Other adjustment reaction wi th predominant disturbance of other emotions 05/02/2011 04/20/2020 Eating disorder NEC 05/02/2011 04/20/2020 Morbid obesity 03/11/2011 12/16/2018 Biliary colic 03/09/2011 04/20/2020 Xerosis of skin 02/13/2011 04/20/2020 Tendonitis 02/26/2010 04/20/2020 ACL tear 11/26/2009 04/20/2020 Knee pain 11/26/2009 04/20/2020 Generalized pain 10/01/2009 02/21/2019 Chronic pain 09/24/2009 02/21/2019 Elbow joint pain 09/24/2009 04/20/2020 Ulcer of heel and midfoot 02/08/20092017 Pain in limb 06/29/2008 02/21/2019 Dermatophytosis of nail 06/29/2008 04/20/19 21 Corns and callosities 06/29/2008 04/16/2017 Essential hypertension, benign 03/27/2008 0 03/16/2015 DM w/o complication type II, uncontrolled 200812/07/2014 Overview: A1c 15.7 as of 2005 per old labs Down to 7.2 as of 2009 -- -CHECKING TWICE DAILY Routine gynecological examination 03/09/2008 04/16/2017 DIABETIC FOOT ULCER 03/09/2008 04/16/2017 Overview: [facility]. Henderson documented as of this encounter (statuses as of 07/08/2021) [facility] Narrative* Problem Noted Date Resolved Date Other chronic pain 04/16/2017 02/21/2019 Other adjustment reaction wi th predominant disturbance of other emotions 05/02/2011 04/20/2020 Eating disorder NEC 05/02/2011 04/20/2020 Morbid obesity 03/11/2011 12/16/2018 Biliary colic 03/09/2011 04/20/2020 Xerosis of skin 02/13/2011 04/20/2020 Tendonitis 02/26/2010 04/20/2020 ACL tear 11/26/2009 04/20/2020 Knee pain 11/26/2009 04/20/2020 Generalized pain 10/01/2009 02/21/2019 Chronic pain 09/24/2009 02/21/2019 Elbow joint pain 09/24/2009 04/20/2020 Ulcer of heel and midfoot 02/08/20092017 Pain in limb 06/29/2008 02/21/2019 Dermatophytosis of nail 06/29/2008 04/20/19 21 Corns and callosities 06/29/2008 04/16/2017 Essential hypertension, benign 03/27/2008 0 03/16/2015 DM w/o complication type II, uncontrolled 200812/07/2014 Overview: A1c 15.7 as of 2005 per old labs Down to 7.2 as of 2009 -- -CHECKING TWICE DAILY Routine gynecological examination 03/09/2008 04/16/2017 DIABETIC FOOT ULCER 03/09/2008 04/16/2017 Overview: [facility] Horn documented as of this encounter (statuses as of 07/18/2021) [facility] Narrative* Problem Noted Date Resolved Date Other chronic pain 04/16/2017 02/21/2019 Other adjustment reaction wi th predominant disturbance of other emotions 05/02/2011 04/20/2020 Eating disorder NEC 05/02/2011 04/20/2020 Morbid obesity 03/11/2011 12/16/2018 Biliary colic 03/09/2011 04/20/2020 Xerosis of skin 02/13/2011 04/20/2020 Tendonitis 02/26/2010 04/20/2020 ACL tear 11/26/2009 04/20/2020 Knee pain 11/26/2009 04/20/2020 Generalized pain 10/01/2009 02/21/2019 Chronic pain 09/24/2009 02/21/2019 Elbow joint pain 09/24/2009 04/20/2020 Ulcer of heel and midfoot 02/08/20092017 Pain in limb 06/29/2008 02/21/2019 Dermatophytosis of nail 06/29/2008 04/20/19 21 Corns and callosities 06/29/2008 04/16/2017 Essential hypertension, benign 03/27/2008 0 03/16/2015 DM w/o complication type II, uncontrolled 200812/07/2014 Overview: A1c 15.7 as of 2005 per old labs Down to 7.2 as of 2009 -- -CHECKING TWICE DAILY Routine gynecological examination 03/09/2008 04/16/2017 DIABETIC FOOT ULCER 03/09/2008 04/16/2017 Overview: [facility] Horn documented as of this encounter (statuses as of 07/22/2021) [facility] Narrative* Problem Noted Date Resolved Date Other chronic pain 04/16/2017 02/21/2019 Other adjustment reaction wi th predominant disturbance of other emotions 05/02/2011 04/20/2020 Eating disorder NEC 05/02/2011 04/20/2020 Morbid obesity 03/11/2011 12/16/2018 Biliary colic 03/09/2011 04/20/2020 Xerosis of skin 02/13/2011 04/20/2020 Tendonitis 02/26/2010 04/20/2020 ACL tear 11/26/2009 04/20/2020 Knee pain 11/26/2009 04/20/2020 Generalized pain 10/01/2009 02/21/2019 Chronic pain 09/24/2009 02/21/2019 Elbow joint pain 09/24/2009 04/20/2020 Ulcer of heel and midfoot 02/08/20092017 Pain in limb 06/29/2008 02/21/2019 Dermatophytosis of nail 06/29/2008 04/20/19 21 Corns and callosities 06/29/2008 04/16/2017 Essential hypertension, benign 03/27/2008 0 03/16/2015 DM w/o complication type II, uncontrolled 200812/07/2014 Overview: A1c 15.7 as of 2005 per old labs Down to 7.2 as of 2009 -- -CHECKING TWICE DAILY Routine gynecological examination 03/09/2008 04/16/2017 DIABETIC FOOT ULCER 03/09/2008 04/16/2017 Overview: Follows with [facility], [facility], Dr. Henderson documented as of this encounter (statuses as of 07/26/2021) [facility] Past illness Narrative* Problem Noted Date Resolved Date Other chronic pain 04/16/2017 02/21/2019 Other adjustment reaction wi th predominant disturbance of other emotions 05/02/2011 04/20/2020 Eating disorder NEC 05/02/2011 04/20/2020 Morbid obesity 03/11/2011 12/16/2018 Biliary colic 03/09/2011 04/20/2020 Xerosis of skin 02/13/2011 04/20/2020 Tendonitis 02/26/2010 04/20/2020 ACL tear 11/26/2009 04/20/2020 Knee pain 11/26/2009 04/20/2020 Generalized pain 10/01/2009 02/21/2019 Chronic pain 09/24/2009 02/21/2019 Elbow joint pain 09/24/2009 04/20/2020 Ulcer of heel and midfoot 02/08/20092017 Pain in limb 06/29/2008 02/21/2019 Dermatophytosis of nail 06/29/2008 04/20/19 21 Corns and callosities 06/29/2008 04/16/2017 Essential hypertension, benign 03/27/2008 0 03/16/2015 DM w/o complication type II, uncontrolled 200812/07/2014 Overview: A1c 15.7 as of 2005 per old labs Down to 7.2 as of 2009 -- -CHECKING TWICE DAILY Routine gynecological examination 03/09/2008 04/16/2017 DIABETIC FOOT ULCER 03/09/2008 04/16/2017 Overview: [facility] Dr. Henderson documented as of this encounter (statuses as of 07/30/2021) [facility]02[facility]2018 History of Past illness Narrative* Problem Noted Date Resolved Date Other chronic pain 04/16/2017 02/21/2019 Other adjustment reaction wi th predominant disturbance of other emotions 05/02/2011 04/20/2020 Eating disorder NEC 05/02/2011 04/20/2020 Morbid obesity 03/11/2011 12/16/2018 Biliary colic 03/09/2011 04/20/2020 Xerosis of skin 02/13/2011 04/20/2020 Tendonitis 02/26/2010 04/20/2020 ACL tear 11/26/2009 04/20/2020 Knee pain 11/26/2009 04/20/2020 Generalized pain 10/01/2009 02/21/2019 Chronic pain 09/24/2009 02/21/2019 Elbow joint pain 09/24/2009 04/20/2020 Ulcer of heel and midfoot 02/08/20092017 Pain in limb 06/29/2008 02/21/2019 Dermatophytosis of nail 06/29/2008 04/20/19 21 Corns and callosities 06/29/2008 04/16/2017 Essential hypertension, benign 03/27/2008 0 03/16/2015 DM w/o complication type II, uncontrolled 200812/07/2014 Overview: A1c 15.7 as of 2005 per old labs Down to 7.2 as of 2009 -- -CHECKING TWICE DAILY Routine gynecological examination 03/09/2008 04/16/2017 DIABETIC FOOT ULCER 03/09/2008 04/16/2017 Overview: [facility] Horn documented as of this encounter (statuses as of 07/30/2021) [facility] History of Past illness Narrative* Problem Noted Date Resolved Date Other chronic pain 04/16/2017 02/21/2019 Other adjustment reaction wi th predominant disturbance of other emotions 05/02/2011 04/20/2020 Eating disorder NEC 05/02/2011 04/20/2020 Morbid obesity 03/11/2011 12/16/2018 Biliary colic 03/09/2011 04/20/2020 Xerosis of skin 02/13/2011 04/20/2020 Tendonitis 02/26/2010 04/20/2020 ACL tear 11/26/2009 04/20/2020 Knee pain 11/26/2009 04/20/2020 Generalized pain 10/01/2009 02/21/2019 Chronic pain 09/24/2009 02/21/2019 Elbow joint pain 09/24/2009 04/20/2020 Ulcer of heel and midfoot 02/08/20092017 Pain in limb 06/29/2008 02/21/2019 Dermatophytosis of nail 06/29/2008 04/20/19 21 Corns and callosities 06/29/2008 04/16/2017 Essential hypertension, benign 03/27/2008 0 03/16/2015 DM w/o complication type II, uncontrolled 200812/07/2014 Overview: A1c 15.7 as of 2005 per old labs Down to 7.2 as of 2009 -- -CHECKING TWICE DAILY Routine gynecological examination 03/09/2008 04/16/2017 DIABETIC FOOT ULCER 03/09/2008 04/16/2017 Overview: [facility] Horn documented as of this encounter (statuses as of 08/01/2021) [facility] History of Past illness Narrative* Problem Noted Date Resolved Date Other chronic pain 04/16/2017 02/21/2019 Other adjustment reaction wi th predominant disturbance of other emotions 05/02/2011 04/20/2020 Eating disorder NEC 05/02/2011 04/20/2020 Morbid obesity 03/11/2011 12/16/2018 Biliary colic 03/09/2011 04/20/2020 Xerosis of skin 02/13/2011 04/20/2020 Tendonitis 02/26/2010 04/20/2020 ACL tear 11/26/2009 04/20/2020 Knee pain 11/26/2009 04/20/2020 Generalized pain 10/01/2009 02/21/2019 Chronic pain 09/24/2009 02/21/2019 Elbow joint pain 09/24/2009 04/20/2020 Ulcer of heel and midfoot 02/08/20092017 Pain in limb 06/29/2008 02/21/2019 Dermatophytosis of nail 06/29/2008 04/20/19 21 Corns and callosities 06/29/2008 04/16/2017 Essential hypertension, benign 03/27/2008 0 03/16/2015 DM w/o complication type II, uncontrolled 200812/07/2014 Overview: A1c 15.7 as of 2005 per old labs Down to 7.2 as of 2009 -- -CHECKING TWICE DAILY Routine gynecological examination 03/09/2008 04/16/2017 DIABETIC FOOT ULCER 03/09/2008 04/16/2017 Overview: Follows with [facility], [facility], Dr. Henderson documented as of this encounter (statuses as of 08/06/2021) [facility] History of Past illness Narrative* Problem Noted Date Resolved Date Other chronic pain 04/16/2017 02/21/2019 Other adjustment reaction wi th predominant disturbance of other emotions 05/02/2011 04/20/2020 Eating disorder NEC 05/02/2011 04/20/2020 Morbid obesity 03/11/2011 12/16/2018 Biliary colic 03/09/2011 04/20/2020 Xerosis of skin 02/13/2011 04/20/2020 Tendonitis 02/26/2010 04/20/2020 ACL tear 11/26/2009 04/20/2020 Knee pain 11/26/2009 04/20/2020 Generalized pain 10/01/2009 02/21/2019 Chronic pain 09/24/2009 02/21/2019 Elbow joint pain 09/24/2009 04/20/2020 Ulcer of heel and midfoot 02/08/20092017 Pain in limb 06/29/2008 02/21/2019 Dermatophytosis of nail 06/29/2008 04/20/19 21 Corns and callosities 06/29/2008 04/16/2017 Essential hypertension, benign 03/27/2008 0 03/16/2015 DM w/o complication type II, uncontrolled 200812/07/2014 Overview: A1c 15.7 as of 2005 per old labs Down to 7.2 as of 2009 -- -CHECKING TWICE DAILY Routine gynecological examination 03/09/2008 04/16/2017 DIABETIC FOOT ULCER 03/09/2008 04/16/2017 Overview: Follows with [facility], [facility], Dr. Henderson documented as of this encounter (statuses as of 08/12/2021) [facility] History of Past illness Narrative* Problem Noted Date Resolved Date Other chronic pain 04/16/2017 02/21/2019 Other adjustment reaction wi th predominant disturbance of other emotions 05/02/2011 04/20/2020 Eating disorder NEC 05/02/2011 04/20/2020 Morbid obesity 03/11/2011 12/16/2018 Biliary colic 03/09/2011 04/20/2020 Xerosis of skin 02/13/2011 04/20/2020 Tendonitis 02/26/2010 04/20/2020 ACL tear 11/26/2009 04/20/2020 Knee pain 11/26/2009 04/20/2020 Generalized pain 10/01/2009 02/21/2019 Chronic pain 09/24/2009 02/21/2019 Elbow joint pain 09/24/2009 04/20/2020 Ulcer of heel and midfoot 02/08/20092017 Pain in limb 06/29/2008 02/21/2019 Dermatophytosis of nail 06/29/2008 04/20/19 21 Corns and callosities 06/29/2008 04/16/2017 Essential hypertension, benign 03/27/2008 0 03/16/2015 DM w/o complication type II, uncontrolled 200812/07/2014 Overview: A1c 15.7 as of 2005 per old labs Down to 7.2 as of 2009 -- -CHECKING TWICE DAILY Routine gynecological examination 03/09/2008 04/16/2017 DIABETIC FOOT ULCER 03/09/2008 04/16/2017 Overview: Follows with [facility], [facility], Dr. Henderson documented as of this encounter (statuses as of 08/13/2021) [facility]2018 History of Past illness Narrative* Problem Noted Date Resolved Date Other chronic pain 04/16/2017 02/21/2019 Other adjustment reaction wi th predominant disturbance of other emotions 05/02/2011 04/20/2020 Eating disorder NEC 05/02/2011 04/20/2020 Morbid obesity 03/11/2011 12/16/2018 Biliary colic 03/09/2011 04/20/2020 Xerosis of skin 02/13/2011 04/20/2020 Tendonitis 02/26/2010 04/20/2020 ACL tear 11/26/2009 04/20/2020 Knee pain 11/26/2009 04/20/2020 Generalized pain 10/01/2009 02/21/2019 Chronic pain 09/24/2009 02/21/2019 Elbow joint pain 09/24/2009 04/20/2020 Ulcer of heel and midfoot 02/08/20092017 Pain in limb 06/29/2008 02/21/2019 Dermatophytosis of nail 06/29/2008 04/20/19 21 Corns and callosities 06/29/2008 04/16/2017 Essential hypertension, benign 03/27/2008 0 03/16/2015 DM w/o complication type II, uncontrolled 200812/07/2014 Overview: A1c 15.7 as of 2005 per old labs Down to 7.2 as of 2009 -- -CHECKING TWICE DAILY Routine gynecological examination 03/09/2008 04/16/2017 DIABETIC FOOT ULCER 03/09/2008 04/16/2017 Overview: [facility] Horn documented as of this encounter (statuses as of 08/16/2021) [facility] History of Past illness Narrative* Problem Noted Date Resolved Date Other chronic pain 04/16/2017 02/21/2019 Other adjustment reaction wi th predominant disturbance of other emotions 05/02/2011 04/20/2020 Eating disorder NEC 05/02/2011 04/20/2020 Morbid obesity 03/11/2011 12/16/2018 Biliary colic 03/09/2011 04/20/2020 Xerosis of skin 02/13/2011 04/20/2020 Tendonitis 02/26/2010 04/20/2020 ACL tear 11/26/2009 04/20/2020 Knee pain 11/26/2009 04/20/2020 Generalized pain 10/01/2009 02/21/2019 Chronic pain 09/24/2009 02/21/2019 Elbow joint pain 09/24/2009 04/20/2020 Ulcer of heel and midfoot 02/08/20092017 Pain in limb 06/29/2008 02/21/2019 Dermatophytosis of nail 06/29/2008 04/20/19 21 Corns and callosities 06/29/2008 04/16/2017 Essential hypertension, benign 03/27/2008 0 03/16/2015 DM w/o complication type II, uncontrolled 200812/07/2014 Overview: A1c 15.7 as of 2005 per old labs Down to 7.2 as of 2009 -- -CHECKING TWICE DAILY Routine gynecological examination 03/09/2008 04/16/2017 DIABETIC FOOT ULCER 03/09/2008 04/16/2017 Overview: [facility] Horn documented as of this encounter (statuses as of 08/16/2021) [facility] History of Past illness Narrative* Problem Noted Date Resolved Date Other chronic pain 04/16/2017 02/21/2019 Other adjustment reaction wi th predominant disturbance of other emotions 05/02/2011 04/20/2020 Eating disorder NEC 05/02/2011 04/20/2020 Morbid obesity 03/11/2011 12/16/2018 Biliary colic 03/09/2011 04/20/2020 Xerosis of skin 02/13/2011 04/20/2020 Tendonitis 02/26/2010 04/20/2020 ACL tear 11/26/2009 04/20/2020 Knee pain 11/26/2009 04/20/2020 Generalized pain 10/01/2009 02/21/2019 Chronic pain 09/24/2009 02/21/2019 Elbow joint pain 09/24/2009 04/20/2020 Ulcer of heel and midfoot 02/08/20092017 Pain in limb 06/29/2008 02/21/2019 Dermatophytosis of nail 06/29/2008 04/20/19 21 Corns and callosities 06/29/2008 04/16/2017 Essential hypertension, benign 03/27/2008 0 03/16/2015 DM w/o complication type II, uncontrolled 200812/07/2014 Overview: A1c 15.7 as of 2005 per old labs Down to 7.2 as of 2009 -- -CHECKING TWICE DAILY Routine gynecological examination 03/09/2008 04/16/2017 DIABETIC FOOT ULCER 03/09/2008 04/16/2017 Overview: Follows with [facility], [facility], Dr. Henderson documented as of this encounter (statuses as of 08/19/2021) [facility] History of Past illness Narrative* Problem Noted Date Resolved Date Other chronic pain 04/16/2017 02/21/2019 Other adjustment reaction wi th predominant disturbance of other emotions 05/02/2011 04/20/2020 Eating disorder NEC 05/02/2011 04/20/2020 Morbid obesity 03/11/2011 12/16/2018 Biliary colic 03/09/2011 04/20/2020 Xerosis of skin 02/13/2011 04/20/2020 Tendonitis 02/26/2010 04/20/2020 ACL tear 11/26/2009 04/20/2020 Knee pain 11/26/2009 04/20/2020 Generalized pain 10/01/2009 02/21/2019 Chronic pain 09/24/2009 02/21/2019 Elbow joint pain 09/24/2009 04/20/2020 Ulcer of heel and midfoot 02/08/20092017 Pain in limb 06/29/2008 02/21/2019 Dermatophytosis of nail 06/29/2008 04/20/19 21 Corns and callosities 06/29/2008 04/16/2017 Essential hypertension, benign 03/27/2008 0 03/16/2015 DM w/o complication type II, uncontrolled 200812/07/2014 Overview: A1c 15.7 as of 2005 per old labs Down to 7.2 as of 2009 -- -CHECKING TWICE DAILY Routine gynecological examination 03/09/2008 04/16/2017 DIABETIC FOOT ULCER 03/09/2008 04/16/2017 Overview: Follows with [facility], [facility], Dr. Henderson documented as of this encounter (statuses as of 08/23/2021) [facility] History of Past illness Narrative* Problem Noted Date Resolved Date Other chronic pain 04/16/2017 02/21/2019 Other adjustment reaction wi th predominant disturbance of other emotions 05/02/2011 04/20/2020 Eating disorder NEC 05/02/2011 04/20/2020 Morbid obesity 03/11/2011 12/16/2018 Biliary colic 03/09/2011 04/20/2020 Xerosis of skin 02/13/2011 04/20/2020 Tendonitis 02/26/2010 04/20/2020 ACL tear 11/26/2009 04/20/2020 Knee pain 11/26/2009 04/20/2020 Generalized pain 10/01/2009 02/21/2019 Chronic pain 09/24/2009 02/21/2019 Elbow joint pain 09/24/2009 04/20/2020 Ulcer of heel and midfoot 02/08/20092017 Pain in limb 06/29/2008 02/21/2019 Dermatophytosis of nail 06/29/2008 04/20/19 21 Corns and callosities 06/29/2008 04/16/2017 Essential hypertension, benign 03/27/2008 0 03/16/2015 DM w/o complication type II, uncontrolled 200812/07/2014 Overview: A1c 15.7 as of 2005 per old labs Down to 7.2 as of 2009 -- -CHECKING TWICE DAILY Routine gynecological examination 03/09/2008 04/16/2017 DIABETIC FOOT ULCER 03/09/2008 04/16/2017 Overview: [facility] Horn documented as of this encounter (statuses as of 08/27/2021) [facility] History of Past illness Narrative* Problem Noted Date Resolved Date Other chronic pain 04/16/2017 02/21/2019 Other adjustment reaction wi th predominant disturbance of other emotions 05/02/2011 04/20/2020 Eating disorder NEC 05/02/2011 04/20/2020 Morbid obesity 03/11/2011 12/16/2018 Biliary colic 03/09/2011 04/20/2020 Xerosis of skin 02/13/2011 04/20/2020 Tendonitis 02/26/2010 04/20/2020 ACL tear 11/26/2009 04/20/2020 Knee pain 11/26/2009 04/20/2020 Generalized pain 10/01/2009 02/21/2019 Chronic pain 09/24/2009 02/21/2019 Elbow joint pain 09/24/2009 04/20/2020 Ulcer of heel and midfoot 02/08/20092017 Pain in limb 06/29/2008 02/21/2019 Dermatophytosis of nail 06/29/2008 04/20/19 21 Corns and callosities 06/29/2008 04/16/2017 Essential hypertension, benign 03/27/2008 0 03/16/2015 DM w/o complication type II, uncontrolled 200812/07/2014 Overview: A1c 15.7 as of 2005 per old labs Down to 7.2 as of 2009 -- -CHECKING TWICE DAILY Routine gynecological examination 03/09/2008 04/16/2017 DIABETIC FOOT ULCER 03/09/2008 04/16/2017 Overview: [facility] Horn documented as of this encounter (statuses as of 09/14/2021) [facility] History of Past illness Narrative* Problem Noted Date Resolved Date Other chronic pain 04/16/2017 02/21/2019 Other adjustment reaction wi th predominant disturbance of other emotions 05/02/2011 04/20/2020 Eating disorder NEC 05/02/2011 04/20/2020 Morbid obesity 03/11/2011 12/16/2018 Biliary colic 03/09/2011 04/20/2020 Xerosis of skin 02/13/2011 04/20/2020 Tendonitis 02/26/2010 04/20/2020 ACL tear 11/26/2009 04/20/2020 Knee pain 11/26/2009 04/20/2020 Generalized pain 10/01/2009 02/21/2019 Chronic pain 09/24/2009 02/21/2019 Elbow joint pain 09/24/2009 04/20/2020 Ulcer of heel and midfoot 02/08/20092017 Pain in limb 06/29/2008 02/21/2019 Dermatophytosis of nail 06/29/2008 04/20/19 21 Corns and callosities 06/29/2008 04/16/2017 Essential hypertension, benign 03/27/2008 0 03/16/2015 DM w/o complication type II, uncontrolled 200812/07/2014 Overview: A1c 15.7 as of 2005 per old labs Down to 7.2 as of 2009 -- -CHECKING TWICE DAILY Routine gynecological examination 03/09/2008 04/16/2017 DIABETIC FOOT ULCER 03/09/2008 04/16/2017 Overview: Follows with [facility], Dr. Santiago Montero documented as of this encounter (statuses as of 09/30/2021) [facility] History of Past illness Narrative* Problem Noted Date Resolved Date Other chronic pain 04/16/2017 02/21/2019 Other adjustment reaction wi th predominant disturbance of other emotions 05/02/2011 04/20/2020 Eating disorder NEC 05/02/2011 04/20/2020 Morbid obesity 03/11/2011 12/16/2018 Biliary colic 03/09/2011 04/20/2020 Xerosis of skin 02/13/2011 04/20/2020 Tendonitis 02/26/2010 04/20/2020 ACL tear 11/26/2009 04/20/2020 Knee pain 11/26/2009 04/20/2020 Generalized pain 10/01/2009 02/21/2019 Chronic pain 09/24/2009 02/21/2019 Elbow joint pain 09/24/2009 04/20/2020 Ulcer of heel and midfoot 02/08/20092017 Pain in limb 06/29/2008 02/21/2019 Dermatophytosis of nail 06/29/2008 04/20/19 21 Corns and callosities 06/29/2008 04/16/2017 Essential hypertension, benign 03/27/2008 0 03/16/2015 DM w/o complication type II, uncontrolled 200812/07/2014 Overview: A1c 15.7 as of 2005 per old labs Down to 7.2 as of 2009 -- -CHECKING TWICE DAILY Routine gynecological examination 03/09/2008 04/16/2017 DIABETIC FOOT ULCER 03/09/2008 04/16/2017 Overview: Follows with [facility], Dr. Santiago Montero documented as of this encounter (statuses as of 10/02/2021) [facility] History of Past illness Narrative* Problem Noted Date Resolved Date Other chronic pain 04/16/2017 02/21/2019 Other adjustment reaction wi th predominant disturbance of other emotions 05/02/2011 04/20/2020 Eating disorder NEC 05/02/2011 04/20/2020 Morbid obesity 03/11/2011 12/16/2018 Biliary colic 03/09/2011 04/20/2020 Xerosis of skin 02/13/2011 04/20/2020 Tendonitis 02/26/2010 04/20/2020 ACL tear 11/26/2009 04/20/2020 Knee pain 11/26/2009 04/20/2020 Generalized pain 10/01/2009 02/21/2019 Chronic pain 09/24/2009 02/21/2019 Elbow joint pain 09/24/2009 04/20/2020 Ulcer of heel and midfoot 02/08/20092017 Pain in limb 06/29/2008 02/21/2019 Dermatophytosis of nail 06/29/2008 04/20/19 21 Corns and callosities 06/29/2008 04/16/2017 Essential hypertension, benign 03/27/2008 0 03/16/2015 DM w/o complication type II, uncontrolled 200812/07/2014 Overview: A1c 15.7 as of 2005 per old labs Down to 7.2 as of 2009 -- -CHECKING TWICE DAILY Routine gynecological examination 03/09/2008 04/16/2017 DIABETIC FOOT ULCER 03/09/2008 04/16/2017 Overview: Follows with [facility], [facility], Dr. Henderson documented as of this encounter (statuses as of 10/07/2021) [facility] History of Past illness Narrative* Problem Noted Date Resolved Date Other chronic pain 04/16/2017 02/21/2019 Other adjustment reaction wi th predominant disturbance of other emotions 05/02/2011 04/20/2020 Eating disorder NEC 05/02/2011 04/20/2020 Morbid obesity 03/11/2011 12/16/2018 Biliary colic 03/09/2011 04/20/2020 Xerosis of skin 02/13/2011 04/20/2020 Tendonitis 02/26/2010 04/20/2020 ACL tear 11/26/2009 04/20/2020 Knee pain 11/26/2009 04/20/2020 Generalized pain 10/01/2009 02/21/2019 Chronic pain 09/24/2009 02/21/2019 Elbow joint pain 09/24/2009 04/20/2020 Ulcer of heel and midfoot 02/08/20092017 Pain in limb 06/29/2008 02/21/2019 Dermatophytosis of nail 06/29/2008 04/20/19 21 Corns and callosities 06/29/2008 04/16/2017 Essential hypertension, benign 03/27/2008 0 03/16/2015 DM w/o complication type II, uncontrolled 200812/07/2014 Overview: A1c 15.7 as of 2005 per old labs Down to 7.2 as of 2009 -- -CHECKING TWICE DAILY Routine gynecological examination 03/09/2008 04/16/2017 DIABETIC FOOT ULCER 03/09/2008 04/16/2017 Overview: [facility] Horn documented as of this encounter (statuses as of 10/15/2021) [facility] History of Past illness Narrative* Problem Noted Date Resolved Date Other chronic pain 04/16/2017 02/21/2019 Other adjustment reaction wi th predominant disturbance of other emotions 05/02/2011 04/20/2020 Eating disorder NEC 05/02/2011 04/20/2020 Morbid obesity 03/11/2011 12/16/2018 Biliary colic 03/09/2011 04/20/2020 Xerosis of skin 02/13/2011 04/20/2020 Tendonitis 02/26/2010 04/20/2020 ACL tear 11/26/2009 04/20/2020 Knee pain 11/26/2009 04/20/2020 Generalized pain 10/01/2009 02/21/2019 Chronic pain 09/24/2009 02/21/2019 Elbow joint pain 09/24/2009 04/20/2020 Ulcer of heel and midfoot 02/08/20092017 Pain in limb 06/29/2008 02/21/2019 Dermatophytosis of nail 06/29/2008 04/20/19 21 Corns and callosities 06/29/2008 04/16/2017 Essential hypertension, benign 03/27/2008 0 03/16/2015 DM w/o complication type II, uncontrolled 200812/07/2014 Overview: A1c 15.7 as of 2005 per old labs Down to 7.2 as of 2009 -- -CHECKING TWICE DAILY Routine gynecological examination 03/09/2008 04/16/2017 DIABETIC FOOT ULCER 03/09/2008 04/16/2017 Overview: [facility] Horn documented as of this encounter (statuses as of 10/28/2021) [facility] History of Past illness Narrative* Problem Noted Date Resolved Date Other chronic pain 04/16/2017 02/21/2019 Other adjustment reaction wi th predominant disturbance of other emotions 05/02/2011 04/20/2020 Eating disorder NEC 05/02/2011 04/20/2020 Morbid obesity 03/11/2011 12/16/2018 Biliary colic 03/09/2011 04/20/2020 Xerosis of skin 02/13/2011 04/20/2020 Tendonitis 02/26/2010 04/20/2020 ACL tear 11/26/2009 04/20/2020 Knee pain 11/26/2009 04/20/2020 Generalized pain 10/01/2009 02/21/2019 Chronic pain 09/24/2009 02/21/2019 Elbow joint pain 09/24/2009 04/20/2020 Ulcer of heel and midfoot 02/08/20092017 Pain in limb 06/29/2008 02/21/2019 Dermatophytosis of nail 06/29/2008 04/20/19 21 Corns and callosities 06/29/2008 04/16/2017 Essential hypertension, benign 03/27/2008 0 03/16/2015 DM w/o complication type II, uncontrolled 200812/07/2014 Overview: A1c 15.7 as of 2005 per old labs Down to 7.2 as of 2009 -- -CHECKING TWICE DAILY Routine gynecological examination 03/09/2008 04/16/2017 DIABETIC FOOT ULCER 03/09/2008 04/16/2017 Overview: Follows with [facility], Dr. Santiago Montero documented as of this encounter (statuses as of 10/28/2021) [facility] History of Past illness Narrative* Problem Noted Date Resolved Date Other chronic pain 04/16/2017 02/21/2019 Other adjustment reaction wi th predominant disturbance of other emotions 05/02/2011 04/20/2020 Eating disorder NEC 05/02/2011 04/20/2020 Morbid obesity 03/11/2011 12/16/2018 Biliary colic 03/09/2011 04/20/2020 Xerosis of skin 02/13/2011 04/20/2020 Tendonitis 02/26/2010 04/20/2020 ACL tear 11/26/2009 04/20/2020 Knee pain 11/26/2009 04/20/2020 Generalized pain 10/01/2009 02/21/2019 Chronic pain 09/24/2009 02/21/2019 Elbow joint pain 09/24/2009 04/20/2020 Ulcer of heel and midfoot 02/08/20092017 Pain in limb 06/29/2008 02/21/2019 Dermatophytosis of nail 06/29/2008 04/20/19 21 Corns and callosities 06/29/2008 04/16/2017 Essential hypertension, benign 03/27/2008 0 03/16/2015 DM w/o complication type II, uncontrolled 200812/07/2014 Overview: A1c 15.7 as of 2005 per old labs Down to 7.2 as of 2009 -- -CHECKING TWICE DAILY Routine gynecological examination 03/09/2008 04/16/2017 DIABETIC FOOT ULCER 03/09/2008 04/16/2017 Overview: Follows with [facility], [facility], Dr. Henderson documented as of this encounter (statuses as of 10/28/2021) [facility] History of Past illness Narrative* Problem Noted Date Resolved Date Other chronic pain 04/16/2017 02/21/2019 Other adjustment reaction wi th predominant disturbance of other emotions 05/02/2011 04/20/2020 Eating disorder NEC 05/02/2011 04/20/2020 Morbid obesity 03/11/2011 12/16/2018 Biliary colic 03/09/2011 04/20/2020 Xerosis of skin 02/13/2011 04/20/2020 Tendonitis 02/26/2010 04/20/2020 ACL tear 11/26/2009 04/20/2020 Knee pain 11/26/2009 04/20/2020 Generalized pain 10/01/2009 02/21/2019 Chronic pain 09/24/2009 02/21/2019 Elbow joint pain 09/24/2009 04/20/2020 Ulcer of heel and midfoot 02/08/20092017 Pain in limb 06/29/2008 02/21/2019 Dermatophytosis of nail 06/29/2008 04/20/19 21 Corns and callosities 06/29/2008 04/16/2017 Essential hypertension, benign 03/27/2008 0 03/16/2015 DM w/o complication type II, uncontrolled 200812/07/2014 Overview: A1c 15.7 as of 2005 per old labs Down to 7.2 as of 2009 -- -CHECKING TWICE DAILY Routine gynecological examination 03/09/2008 04/16/2017 DIABETIC FOOT ULCER 03/09/2008 04/16/2017 Overview: [facility] Horn documented as of this encounter (statuses as of 11/20/2021) [facility] History of Past illness Narrative* Problem Noted Date Resolved Date Other chronic pain 04/16/2017 02/21/2019 Other adjustment reaction wi th predominant disturbance of other emotions 05/02/2011 04/20/2020 Eating disorder NEC 05/02/2011 04/20/2020 Morbid obesity 03/11/2011 12/16/2018 Biliary colic 03/09/2011 04/20/2020 Xerosis of skin 02/13/2011 04/20/2020 Tendonitis 02/26/2010 04/20/2020 ACL tear 11/26/2009 04/20/2020 Knee pain 11/26/2009 04/20/2020 Generalized pain 10/01/2009 02/21/2019 Chronic pain 09/24/2009 02/21/2019 Elbow joint pain 09/24/2009 04/20/2020 Ulcer of heel and midfoot 02/08/20092017 Pain in limb 06/29/2008 02/21/2019 Dermatophytosis of nail 06/29/2008 04/20/19 21 Corns and callosities 06/29/2008 04/16/2017 Essential hypertension, benign 03/27/2008 0 03/16/2015 DM w/o complication type II, uncontrolled 200812/07/2014 Overview: A1c 15.7 as of 2005 per old labs Down to 7.2 as of 2009 -- -CHECKING TWICE DAILY Routine gynecological examination 03/09/2008 04/16/2017 DIABETIC FOOT ULCER 03/09/2008 04/16/2017 Overview: [facility] documented as of this encounter (statuses as of 11/25/2021) [facility] History of Past illness Narrative* Problem Noted Date Resolved Date Other chronic pain 04/16/2017 02/21/2019 Other adjustment reaction wi th predominant disturbance of other emotions 05/02/2011 04/20/2020 Eating disorder NEC 05/02/2011 04/20/2020 Morbid obesity 03/11/2011 12/16/2018 Biliary colic 03/09/2011 04/20/2020 Xerosis of skin 02/13/2011 04/20/2020 Tendonitis 02/26/2010 04/20/2020 ACL tear 11/26/2009 04/20/2020 Knee pain 11/26/2009 04/20/2020 Generalized pain 10/01/2009 02/21/2019 Chronic pain 09/24/2009 02/21/2019 Elbow joint pain 09/24/2009 04/20/2020 Ulcer of heel and midfoot 02/08/20092017 Pain in limb 06/29/2008 02/21/2019 Dermatophytosis of nail 06/29/2008 04/20/19 21 Corns and callosities 06/29/2008 04/16/2017 Essential hypertension, benign 03/27/2008 0 03/16/2015 DM w/o complication type II, uncontrolled 200812/07/2014 Overview: A1c 15.7 as of 2005 per old labs Down to 7.2 as of 2009 -- -CHECKING TWICE DAILY Routine gynecological examination 03/09/2008 04/16/2017 DIABETIC FOOT ULCER 03/09/2008 04/16/2017 Overview: [facility] Horn documented as of this encounter (statuses as of 11/27/2021) [facility]2018 History of Past illness Narrative* Problem Noted Date Resolved Date Other chronic pain 04/16/2017 02/21/2019 Other adjustment reaction wi th predominant disturbance of other emotions 05/02/2011 04/20/2020 Eating disorder NEC 05/02/2011 04/20/2020 Morbid obesity 03/11/2011 12/16/2018 Biliary colic 03/09/2011 04/20/2020 Xerosis of skin 02/13/2011 04/20/2020 Tendonitis 02/26/2010 04/20/2020 ACL tear 11/26/2009 04/20/2020 Knee pain 11/26/2009 04/20/2020 Generalized pain 10/01/2009 02/21/2019 Chronic pain 09/24/2009 02/21/2019 Elbow joint pain 09/24/2009 04/20/2020 Ulcer of heel and midfoot 02/08/20092017 Pain in limb 06/29/2008 02/21/2019 Dermatophytosis of nail 06/29/2008 04/20/19 21 Corns and callosities 06/29/2008 04/16/2017 Essential hypertension, benign 03/27/2008 0 03/16/2015 DM w/o complication type II, uncontrolled 200812/07/2014 Overview: A1c 15.7 as of 2005 per old labs Down to 7.2 as of 2009 -- -CHECKING TWICE DAILY Routine gynecological examination 03/09/2008 04/16/2017 DIABETIC FOOT ULCER 03/09/2008 04/16/2017 Overview: Follows with [facility], [facility], Dr. Henderson documented as of this encounter (statuses as of 11/27/2021) [facility] History of Past illness Narrative* Problem Noted Date Resolved Date Other chronic pain 04/16/2017 02/21/2019 Other adjustment reaction wi th predominant disturbance of other emotions 05/02/2011 04/20/2020 Eating disorder NEC 05/02/2011 04/20/2020 Morbid obesity 03/11/2011 12/16/2018 Biliary colic 03/09/2011 04/20/2020 Xerosis of skin 02/13/2011 04/20/2020 Tendonitis 02/26/2010 04/20/2020 ACL tear 11/26/2009 04/20/2020 Knee pain 11/26/2009 04/20/2020 Generalized pain 10/01/2009 02/21/2019 Chronic pain 09/24/2009 02/21/2019 Elbow joint pain 09/24/2009 04/20/2020 Ulcer of heel and midfoot 02/08/20092017 Pain in limb 06/29/2008 02/21/2019 Dermatophytosis of nail 06/29/2008 04/20/19 21 Corns and callosities 06/29/2008 04/16/2017 Essential hypertension, benign 03/27/2008 0 03/16/2015 DM w/o complication type II, uncontrolled 200812/07/2014 Overview: A1c 15.7 as of 2005 per old labs Down to 7.2 as of 2009 -- -CHECKING TWICE DAILY Routine gynecological examination 03/09/2008 04/16/2017 DIABETIC FOOT ULCER 03/09/2008 04/16/2017 Overview: [facility] Dr. Henderson documented as of this encounter (statuses as of 12/05/2021) [facility] History of Past illness Narrative* Problem Noted Date Resolved Date Other chronic pain 04/16/2017 02/21/2019 Other adjustment reaction wi th predominant disturbance of other emotions 05/02/2011 04/20/2020 Eating disorder NEC 05/02/2011 04/20/2020 Morbid obesity 03/11/2011 12/16/2018 Biliary colic 03/09/2011 04/20/2020 Xerosis of skin 02/13/2011 04/20/2020 Tendonitis 02/26/2010 04/20/2020 ACL tear 11/26/2009 04/20/2020 Knee pain 11/26/2009 04/20/2020 Generalized pain 10/01/2009 02/21/2019 Chronic pain 09/24/2009 02/21/2019 Elbow joint pain 09/24/2009 04/20/2020 Ulcer of heel and midfoot 02/08/20092017 Pain in limb 06/29/2008 02/21/2019 Dermatophytosis of nail 06/29/2008 04/20/19 21 Corns and callosities 06/29/2008 04/16/2017 Essential hypertension, benign 03/27/2008 0 03/16/2015 DM w/o complication type II, uncontrolled 200812/07/2014 Overview: A1c 15.7 as of 2005 per old labs Down to 7.2 as of 2009 -- -CHECKING TWICE DAILY Routine gynecological examination 03/09/2008 04/16/2017 DIABETIC FOOT ULCER 03/09/2008 04/16/2017 Overview: [facility] Horn documented as of this encounter (statuses as of 12/05/2021) [facility] History of Past illness Narrative* Problem Noted Date Resolved Date Other chronic pain 04/16/2017 02/21/2019 Other adjustment reaction wi th predominant disturbance of other emotions 05/02/2011 04/20/2020 Eating disorder NEC 05/02/2011 04/20/2020 Morbid obesity 03/11/2011 12/16/2018 Biliary colic 03/09/2011 04/20/2020 Xerosis of skin 02/13/2011 04/20/2020 Tendonitis 02/26/2010 04/20/2020 ACL tear 11/26/2009 04/20/2020 Knee pain 11/26/2009 04/20/2020 Generalized pain 10/01/2009 02/21/2019 Chronic pain 09/24/2009 02/21/2019 Elbow joint pain 09/24/2009 04/20/2020 Ulcer of heel and midfoot 02/08/20092017 Pain in limb 06/29/2008 02/21/2019 Dermatophytosis of nail 06/29/2008 04/20/19 21 Corns and callosities 06/29/2008 04/16/2017 Essential hypertension, benign 03/27/2008 0 03/16/2015 DM w/o complication type II, uncontrolled 200812/07/2014 Overview: A1c 15.7 as of 2005 per old labs Down to 7.2 as of 2009 -- -CHECKING TWICE DAILY Routine gynecological examination 03/09/2008 04/16/2017 DIABETIC FOOT ULCER 03/09/2008 04/16/2017 Overview: [facility] Horn documented as of this encounter (statuses as of 12/19/2021) [facility] History of Past illness Narrative* Problem Noted Date Resolved Date Other chronic pain 04/16/2017 02/21/2019 Other adjustment reaction wi th predominant disturbance of other emotions 05/02/2011 04/20/2020 Eating disorder NEC 05/02/2011 04/20/2020 Morbid obesity 03/11/2011 12/16/2018 Biliary colic 03/09/2011 04/20/2020 Xerosis of skin 02/13/2011 04/20/2020 Tendonitis 02/26/2010 04/20/2020 ACL tear 11/26/2009 04/20/2020 Knee pain 11/26/2009 04/20/2020 Generalized pain 10/01/2009 02/21/2019 Chronic pain 09/24/2009 02/21/2019 Elbow joint pain 09/24/2009 04/20/2020 Ulcer of heel and midfoot 02/08/20092017 Pain in limb 06/29/2008 02/21/2019 Dermatophytosis of nail 06/29/2008 04/20/19 21 Corns and callosities 06/29/2008 04/16/2017 Essential hypertension, benign 03/27/2008 0 03/16/2015 DM w/o complication type II, uncontrolled 200812/07/2014 Overview: A1c 15.7 as of 2005 per old labs Down to 7.2 as of 2009 -- -CHECKING TWICE DAILY Routine gynecological examination 03/09/2008 04/16/2017 DIABETIC FOOT ULCER 03/09/2008 04/16/2017 Overview: Follows with [facility], Dr. Santiago Montero documented as of this encounter (statuses as of 12/19/2021) [facility] History of Past illness Narrative* Problem Noted Date Resolved Date Other chronic pain 04/16/2017 02/21/2019 Other adjustment reaction wi th predominant disturbance of other emotions 05/02/2011 04/20/2020 Eating disorder NEC 05/02/2011 04/20/2020 Morbid obesity 03/11/2011 12/16/2018 Biliary colic 03/09/2011 04/20/2020 Xerosis of skin 02/13/2011 04/20/2020 Tendonitis 02/26/2010 04/20/2020 ACL tear 11/26/2009 04/20/2020 Knee pain 11/26/2009 04/20/2020 Generalized pain 10/01/2009 02/21/2019 Chronic pain 09/24/2009 02/21/2019 Elbow joint pain 09/24/2009 04/20/2020 Ulcer of heel and midfoot 02/08/20092017 Pain in limb 06/29/2008 02/21/2019 Dermatophytosis of nail 06/29/2008 04/20/19 21 Corns and callosities 06/29/2008 04/16/2017 Essential hypertension, benign 03/27/2008 0 03/16/2015 DM w/o complication type II, uncontrolled 200812/07/2014 Overview: A1c 15.7 as of 2005 per old labs Down to 7.2 as of 2009 -- -CHECKING TWICE DAILY Routine gynecological examination 03/09/2008 04/16/2017 DIABETIC FOOT ULCER 03/09/2008 04/16/2017 Overview: [facility] Dr. Henderson documented as of this encounter (statuses as of 12/24/2021) [facility] History of Past illness Narrative* Problem Noted Date Resolved Date Other chronic pain 04/16/2017 02/21/2019 Other adjustment reaction wi th predominant disturbance of other emotions 05/02/2011 04/20/2020 Eating disorder NEC 05/02/2011 04/20/2020 Morbid obesity 03/11/2011 12/16/2018 Biliary colic 03/09/2011 04/20/2020 Xerosis of skin 02/13/2011 04/20/2020 Tendonitis 02/26/2010 04/20/2020 ACL tear 11/26/2009 04/20/2020 Knee pain 11/26/2009 04/20/2020 Generalized pain 10/01/2009 02/21/2019 Chronic pain 09/24/2009 02/21/2019 Elbow joint pain 09/24/2009 04/20/2020 Ulcer of heel and midfoot 02/08/20092017 Pain in limb 06/29/2008 02/21/2019 Dermatophytosis of nail 06/29/2008 04/20/19 21 Corns and callosities 06/29/2008 04/16/2017 Essential hypertension, benign 03/27/2008 0 03/16/2015 DM w/o complication type II, uncontrolled 200812/07/2014 Overview: A1c 15.7 as of 2005 per old labs Down to 7.2 as of 2009 -- -CHECKING TWICE DAILY Routine gynecological examination 03/09/2008 04/16/2017 DIABETIC FOOT ULCER 03/09/2008 04/16/2017 Overview: Follows with [facility], [facility], Dr. Henderson documented as of this encounter (statuses as of 12/30/2021) [facility]2018 History of Past illness Narrative* Problem Noted Date Resolved Date Other chronic pain 04/16/2017 02/21/2019 Other adjustment reaction wi th predominant disturbance of other emotions 05/02/2011 04/20/2020 Eating disorder NEC 05/02/2011 04/20/2020 Morbid obesity 03/11/2011 12/16/2018 Biliary colic 03/09/2011 04/20/2020 Xerosis of skin 02/13/2011 04/20/2020 Tendonitis 02/26/2010 04/20/2020 ACL tear 11/26/2009 04/20/2020 Knee pain 11/26/2009 04/20/2020 Generalized pain 10/01/2009 02/21/2019 Chronic pain 09/24/2009 02/21/2019 Elbow joint pain 09/24/2009 04/20/2020 Ulcer of heel and midfoot 02/08/20092017 Pain in limb 06/29/2008 02/21/2019 Dermatophytosis of nail 06/29/2008 04/20/19 21 Corns and callosities 06/29/2008 04/16/2017 Essential hypertension, benign 03/27/2008 0 03/16/2015 DM w/o complication type II, uncontrolled 200812/07/2014 Overview: A1c 15.7 as of 2005 per old labs Down to 7.2 as of 2009 -- -CHECKING TWICE DAILY Routine gynecological examination 03/09/2008 04/16/2017 DIABETIC FOOT ULCER 03/09/2008 04/16/2017 Overview: [facility] Horn documented as of this encounter (statuses as of 01/08/2022) [facility] History of Past illness Narrative* Problem Noted Date Resolved Date Other chronic pain 04/16/2017 02/21/2019 Other adjustment reaction wi th predominant disturbance of other emotions 05/02/2011 04/20/2020 Eating disorder NEC 05/02/2011 04/20/2020 Morbid obesity 03/11/2011 12/16/2018 Biliary colic 03/09/2011 04/20/2020 Xerosis of skin 02/13/2011 04/20/2020 Tendonitis 02/26/2010 04/20/2020 ACL tear 11/26/2009 04/20/2020 Knee pain 11/26/2009 04/20/2020 Generalized pain 10/01/2009 02/21/2019 Chronic pain 09/24/2009 02/21/2019 Elbow joint pain 09/24/2009 04/20/2020 Ulcer of heel and midfoot 02/08/20092017 Pain in limb 06/29/2008 02/21/2019 Dermatophytosis of nail 06/29/2008 04/20/19 21 Corns and callosities 06/29/2008 04/16/2017 Essential hypertension, benign 03/27/2008 0 03/16/2015 DM w/o complication type II, uncontrolled 200812/07/2014 Overview: A1c 15.7 as of 2005 per old labs Down to 7.2 as of 2009 -- -CHECKING TWICE DAILY Routine gynecological examination 03/09/2008 04/16/2017 DIABETIC FOOT ULCER 03/09/2008 04/16/2017 Overview: [facility] Horn documented as of this encounter (statuses as of 01/10/2022) [facility] History of Past illness Narrative* Problem Noted Date Resolved Date Other chronic pain 04/16/2017 02/21/2019 Other adjustment reaction wi th predominant disturbance of other emotions 05/02/2011 04/20/2020 Eating disorder NEC 05/02/2011 04/20/2020 Morbid obesity 03/11/2011 12/16/2018 Biliary colic 03/09/2011 04/20/2020 Xerosis of skin 02/13/2011 04/20/2020 Tendonitis 02/26/2010 04/20/2020 ACL tear 11/26/2009 04/20/2020 Knee pain 11/26/2009 04/20/2020 Generalized pain 10/01/2009 02/21/2019 Chronic pain 09/24/2009 02/21/2019 Elbow joint pain 09/24/2009 04/20/2020 Ulcer of heel and midfoot 02/08/20092017 Pain in limb 06/29/2008 02/21/2019 Dermatophytosis of nail 06/29/2008 04/20/19 21 Corns and callosities 06/29/2008 04/16/2017 Essential hypertension, benign 03/27/2008 0 03/16/2015 DM w/o complication type II, uncontrolled 200812/07/2014 Overview: A1c 15.7 as of 2005 per old labs Down to 7.2 as of 2009 -- -CHECKING TWICE DAILY Routine gynecological examination 03/09/2008 04/16/2017 DIABETIC FOOT ULCER 03/09/2008 04/16/2017 Overview: Follows with [facility], [facility], Dr. Henderson documented as of this encounter (statuses as of 01/14/2022) [facility] History of Past illness Narrative* Problem Noted Date Resolved Date Other chronic pain 04/16/2017 02/21/2019 Other adjustment reaction wi th predominant disturbance of other emotions 05/02/2011 04/20/2020 Eating disorder NEC 05/02/2011 04/20/2020 Morbid obesity 03/11/2011 12/16/2018 Biliary colic 03/09/2011 04/20/2020 Xerosis of skin 02/13/2011 04/20/2020 Tendonitis 02/26/2010 04/20/2020 ACL tear 11/26/2009 04/20/2020 Knee pain 11/26/2009 04/20/2020 Generalized pain 10/01/2009 02/21/2019 Chronic pain 09/24/2009 02/21/2019 Elbow joint pain 09/24/2009 04/20/2020 Ulcer of heel and midfoot 02/08/20092017 Pain in limb 06/29/2008 02/21/2019 Dermatophytosis of nail 06/29/2008 04/20/19 21 Corns and callosities 06/29/2008 04/16/2017 Essential hypertension, benign 03/27/2008 0 03/16/2015 DM w/o complication type II, uncontrolled 200812/07/2014 Overview: A1c 15.7 as of 2005 per old labs Down to 7.2 as of 2009 -- -CHECKING TWICE DAILY Routine gynecological examination 03/09/2008 04/16/2017 DIABETIC FOOT ULCER 03/09/2008 04/16/2017 Overview: Follows with [facility], [facility], Dr. Henderson documented as of this encounter (statuses as of 01/24/2022) [facility] History of Past illness Narrative* Problem Noted Date Resolved Date Other chronic pain 04/16/2017 02/21/2019 Other adjustment reaction wi th predominant disturbance of other emotions 05/02/2011 04/20/2020 Eating disorder NEC 05/02/2011 04/20/2020 Morbid obesity 03/11/2011 12/16/2018 Biliary colic 03/09/2011 04/20/2020 Xerosis of skin 02/13/2011 04/20/2020 Tendonitis 02/26/2010 04/20/2020 ACL tear 11/26/2009 04/20/2020 Knee pain 11/26/2009 04/20/2020 Generalized pain 10/01/2009 02/21/2019 Chronic pain 09/24/2009 02/21/2019 Elbow joint pain 09/24/2009 04/20/2020 Ulcer of heel and midfoot 02/08/20092017 Pain in limb 06/29/2008 02/21/2019 Dermatophytosis of nail 06/29/2008 04/20/19 21 Corns and callosities 06/29/2008 04/16/2017 Essential hypertension, benign 03/27/2008 0 03/16/2015 DM w/o complication type II, uncontrolled 200812/07/2014 Overview: A1c 15.7 as of 2006 per old labs Down to 7.2 as of 2009 -- -CHECKING TWICE DAILY Routine gynecological examination 03/09/2008 04/16/2017 DIABETIC FOOT ULCER 03/09/2008 04/16/2017 Overview: [facility] Horn documented as of this encounter (statuses as of 02/04/2022) [facility] History of Past illness Narrative* Problem Noted Date Resolved Date Other chronic pain 04/16/2017 02/21/2019 Other adjustment reaction wi th predominant disturbance of other emotions 05/02/2011 04/20/2020 Eating disorder NEC 05/02/2011 04/20/2020 Morbid obesity 03/11/2011 12/16/2018 Biliary colic 03/09/2011 04/20/2020 Xerosis of skin 02/13/2011 04/20/2020 Tendonitis 02/26/2010 04/20/2020 ACL tear 11/26/2009 04/20/2020 Knee pain 11/26/2009 04/20/2020 Generalized pain 10/01/2009 02/21/2019 Chronic pain 09/24/2009 02/21/2019 Elbow joint pain 09/24/2009 04/20/2020 Ulcer of heel and midfoot 02/08/20092017 Pain in limb 06/29/2008 02/21/2019 Dermatophytosis of nail 06/29/2008 04/20/19 21 Corns and callosities 06/29/2008 04/16/2017 Essential hypertension, benign 03/27/2008 0 03/16/2015 DM w/o complication type II, uncontrolled 200812/07/2014 Overview: A1c 15.7 as of 2005 per old labs Down to 7.2 as of 2009 -- -CHECKING TWICE DAILY Routine gynecological examination 03/09/2008 04/16/2017 DIABETIC FOOT ULCER 03/09/2008 04/16/2017 Overview: [facility] Horn documented as of this encounter (statuses as of 02/07/2022) [facility] History of Past illness Narrative* Problem Noted Date Resolved Date Other chronic pain 04/16/2017 02/21/2019 Other adjustment reaction wi th predominant disturbance of other emotions 05/02/2011 04/20/2020 Eating disorder NEC 05/02/2011 04/20/2020 Morbid obesity 03/11/2011 12/16/2018 Biliary colic 03/09/2011 04/20/2020 Xerosis of skin 02/13/2011 04/20/2020 Tendonitis 02/26/2010 04/20/2020 ACL tear 11/26/2009 04/20/2020 Knee pain 11/26/2009 04/20/2020 Generalized pain 10/01/2009 02/21/2019 Chronic pain 09/24/2009 02/21/2019 Elbow joint pain 09/24/2009 04/20/2020 Ulcer of heel and midfoot 02/08/20092017 Pain in limb 06/29/2008 02/21/2019 Dermatophytosis of nail 06/29/2008 04/20/19 21 Corns and callosities 06/29/2008 04/16/2017 Essential hypertension, benign 03/27/2008 0 03/16/2015 DM w/o complication type II, uncontrolled 200812/07/2014 Overview: A1c 15.7 as of 2005 per old labs Down to 7.2 as of 2009 -- -CHECKING TWICE DAILY Routine gynecological examination 03/09/2008 04/16/2017 DIABETIC FOOT ULCER 03/09/2008 04/16/2017 Overview: Follows with [facility], Dr. Santiago Montero documented as of this encounter (statuses as of 02/18/2022) [facility] History of Past illness Narrative* Problem Noted Date Resolved Date Other chronic pain 04/16/2017 02/21/2019 Other adjustment reaction wi th predominant disturbance of other emotions 05/02/2011 04/20/2020 Eating disorder NEC 05/02/2011 04/20/2020 Morbid obesity 03/11/2011 12/16/2018 Biliary colic 03/09/2011 04/20/2020 Xerosis of skin 02/13/2011 04/20/2020 Tendonitis 02/26/2010 04/20/2020 ACL tear 11/26/2009 04/20/2020 Knee pain 11/26/2009 04/20/2020 Generalized pain 10/01/2009 02/21/2019 Chronic pain 09/24/2009 02/21/2019 Elbow joint pain 09/24/2009 04/20/2020 Ulcer of heel and midfoot 02/08/20092017 Pain in limb 06/29/2008 02/21/2019 Dermatophytosis of nail 06/29/2008 04/20/19 21 Corns and callosities 06/29/2008 04/16/2017 Essential hypertension, benign 03/27/2008 0 03/16/2015 DM w/o complication type II, uncontrolled 200812/07/2014 Overview: A1c 15.7 as of 2005 per old labs Down to 7.2 as of 2009 -- -CHECKING TWICE DAILY Routine gynecological examination 03/09/2008 04/16/2017 DIABETIC FOOT ULCER 03/09/2008 04/16/2017 Overview: [facility] Dr. Henderson documented as of this encounter (statuses as of 02/21/2022) [facility] History of Past illness Narrative* Problem Noted Date Resolved Date Other chronic pain 04/16/2017 02/21/2019 Other adjustment reaction wi th predominant disturbance of other emotions 05/02/2011 04/20/2020 Eating disorder NEC 05/02/2011 04/20/2020 Morbid obesity 03/11/2011 12/16/2018 Biliary colic 03/09/2011 04/20/2020 Xerosis of skin 02/13/2011 04/20/2020 Tendonitis 02/26/2010 04/20/2020 ACL tear 11/26/2009 04/20/2020 Knee pain 11/26/2009 04/20/2020 Generalized pain 10/01/2009 02/21/2019 Chronic pain 09/24/2009 02/21/2019 Elbow joint pain 09/24/2009 04/20/2020 Ulcer of heel and midfoot 02/08/20092017 Pain in limb 06/29/2008 02/21/2019 Dermatophytosis of nail 06/29/2008 04/20/19 21 Corns and callosities 06/29/2008 04/16/2017 Essential hypertension, benign 03/27/2008 0 03/16/2015 DM w/o complication type II, uncontrolled 200812/07/2014 Overview: A1c 15.7 as of 2005 per old labs Down to 7.2 as of 2009 -- -CHECKING TWICE DAILY Routine gynecological examination 03/09/2008 04/16/2017 DIABETIC FOOT ULCER 03/09/2008 04/16/2017 Overview: Follows with W[facility], [facility], Dr. Henderson documented as of this encounter (statuses as of 02/21/2022) [facility] History of Past illness Narrative* Problem Noted Date Resolved Date Other chronic pain 04/16/2017 02/21/2019 Other adjustment reaction wi th predominant disturbance of other emotions 05/02/2011 04/20/2020 Eating disorder NEC 05/02/2011 04/20/2020 Morbid obesity 03/11/2011 12/16/2018 Biliary colic 03/09/2011 04/20/2020 Xerosis of skin 02/13/2011 04/20/2020 Tendonitis 02/26/2010 04/20/2020 ACL tear 11/26/2009 04/20/2020 Knee pain 11/26/2009 04/20/2020 Generalized pain 10/01/2009 02/21/2019 Chronic pain 09/24/2009 02/21/2019 Elbow joint pain 09/24/2009 04/20/2020 Ulcer of heel and midfoot 02/08/20092017 Pain in limb 06/29/2008 02/21/2019 Dermatophytosis of nail 06/29/2008 04/20/19 21 Corns and callosities 06/29/2008 04/16/2017 Essential hypertension, benign 03/27/2008 0 03/16/2015 DM w/o complication type II, uncontrolled 200812/07/2014 Overview: A1c 15.7 as of 2005 per old labs Down to 7.2 as of 2009 -- -CHECKING TWICE DAILY Routine gynecological examination 03/09/2008 04/16/2017 DIABETIC FOOT ULCER 03/09/2008 04/16/2017 Overview: [facility] Horn documented as of this encounter (statuses as of 03/06/2022) [facility] History of Past illness Narrative* Problem Noted Date Resolved Date Other chronic pain 04/16/2017 02/21/2019 Other adjustment reaction wi th predominant disturbance of other emotions 05/02/2011 04/20/2020 Eating disorder NEC 05/02/2011 04/20/2020 Morbid obesity 03/11/2011 12/16/2018 Biliary colic 03/09/2011 04/20/2020 Xerosis of skin 02/13/2011 04/20/2020 Tendonitis 02/26/2010 04/20/2020 ACL tear 11/26/2009 04/20/2020 Knee pain 11/26/2009 04/20/2020 Generalized pain 10/01/2009 02/21/2019 Chronic pain 09/24/2009 02/21/2019 Elbow joint pain 09/24/2009 04/20/2020 Ulcer of heel and midfoot 02/08/20092017 Pain in limb 06/29/2008 02/21/2019 Dermatophytosis of nail 06/29/2008 04/20/19 21 Corns and callosities 06/29/2008 04/16/2017 Essential hypertension, benign 03/27/2008 0 03/16/2015 DM w/o complication type II, uncontrolled 200812/07/2014 Overview: A1c 15.7 as of 2005 per old labs Down to 7.2 as of 2009 -- -CHECKING TWICE DAILY Routine gynecological examination 03/09/2008 04/16/2017 DIABETIC FOOT ULCER 03/09/2008 04/16/2017 Overview: [facility] Horn documented as of this encounter (statuses as of 03/06/2022) [facility] History of Past illness Narrative* Problem Noted Date Resolved Date Other chronic pain 04/16/2017 02/21/2019 Other adjustment reaction wi th predominant disturbance of other emotions 05/02/2011 04/20/2020 Eating disorder NEC 05/02/2011 04/20/2020 Morbid obesity 03/11/2011 12/16/2018 Biliary colic 03/09/2011 04/20/2020 Xerosis of skin 02/13/2011 04/20/2020 Tendonitis 02/26/2010 04/20/2020 ACL tear 11/26/2009 04/20/2020 Knee pain 11/26/2009 04/20/2020 Generalized pain 10/01/2009 02/21/2019 Chronic pain 09/24/2009 02/21/2019 Elbow joint pain 09/24/2009 04/20/2020 Ulcer of heel and midfoot 02/08/20092017 Pain in limb 06/29/2008 02/21/2019 Dermatophytosis of nail 06/29/2008 04/20/19 21 Corns and callosities 06/29/2008 04/16/2017 Essential hypertension, benign 03/27/2008 0 03/16/2015 DM w/o complication type II, uncontrolled 200812/07/2014 Overview: A1c 15.7 as of 2005 per old labs Down to 7.2 as of 2009 -- -CHECKING TWICE DAILY Routine gynecological examination 03/09/2008 04/16/2017 DIABETIC FOOT ULCER 03/09/2008 04/16/2017 Overview: [facility] with [facility], [facility], Dr. Henderson documented as of this encounter (statuses as of 03/07/2022) [facility]02[facility]2018 History of Past illness Narrative* Problem Noted Date Resolved Date Other chronic pain 04/16/2017 02/21/2019 Other adjustment reaction wi th predominant disturbance of other emotions 05/02/2011 04/20/2020 Eating disorder NEC 05/02/2011 04/20/2020 Morbid obesity 03/11/2011 12/16/2018 Biliary colic 03/09/2011 04/20/2020 Xerosis of skin 02/13/2011 04/20/2020 Tendonitis 02/26/2010 04/20/2020 ACL tear 11/26/2009 04/20/2020 Knee pain 11/26/2009 04/20/2020 Generalized pain 10/01/2009 02/21/2019 Chronic pain 09/24/2009 02/21/2019 Elbow joint pain 09/24/2009 04/20/2020 Ulcer of heel and midfoot 02/08/20092017 Pain in limb 06/29/2008 02/21/2019 Dermatophytosis of nail 06/29/2008 04/20/19 21 Corns and callosities 06/29/2008 04/16/2017 Essential hypertension, benign 03/27/2008 0 03/16/2015 DM w/o complication type II, uncontrolled 200812/07/2014 Overview: A1c 15.7 as of 2005 per old labs Down to 7.2 as of 2009 -- -CHECKING TWICE DAILY Routine gynecological examination 03/09/2008 04/16/2017 DIABETIC FOOT ULCER 03/09/2008 04/16/2017 Overview: Follows with [facility], [facility], Dr. Henderson documented as of this encounter (statuses as of 03/25/2022) [facility]2018 History of Past illness Narrative* Problem Noted Date Resolved Date Other chronic pain 04/16/2017 02/21/2019 Other adjustment reaction wi th predominant disturbance of other emotions 05/02/2011 04/20/2020 Eating disorder NEC 05/02/2011 04/20/2020 Morbid obesity 03/11/2011 12/16/2018 Biliary colic 03/09/2011 04/20/2020 Xerosis of skin 02/13/2011 04/20/2020 Tendonitis 02/26/2010 04/20/2020 ACL tear 11/26/2009 04/20/2020 Knee pain 11/26/2009 04/20/2020 Generalized pain 10/01/2009 02/21/2019 Chronic pain 09/24/2009 02/21/2019 Elbow joint pain 09/24/2009 04/20/2020 Ulcer of heel and midfoot 02/08/20092017 Pain in limb 06/29/2008 02/21/2019 Dermatophytosis of nail 06/29/2008 04/20/19 21 Corns and callosities 06/29/2008 04/16/2017 Essential hypertension, benign 03/27/2008 0 03/16/2015 DM w/o complication type II, uncontrolled 200812/07/2014 Overview: A1c 15.7 as of 2005 per old labs Down to 7.2 as of 2009 -- -CHECKING TWICE DAILY Routine gynecological examination 03/09/2008 04/16/2017 DIABETIC FOOT ULCER 03/09/2008 04/16/2017 Overview: [facility] documented as of this encounter (statuses as of 03/27/2022) [facility] History of Past illness Narrative* Problem Noted Date Resolved Date Other chronic pain 04/16/2017 02/21/2019 Other adjustment reaction wi th predominant disturbance of other emotions 05/02/2011 04/20/2020 Eating disorder NEC 05/02/2011 04/20/2020 Morbid obesity 03/11/2011 12/16/2018 Biliary colic 03/09/2011 04/20/2020 Xerosis of skin 02/13/2011 04/20/2020 Tendonitis 02/26/2010 04/20/2020 ACL tear 11/26/2009 04/20/2020 Knee pain 11/26/2009 04/20/2020 Generalized pain 10/01/2009 02/21/2019 Chronic pain 09/24/2009 02/21/2019 Elbow joint pain 09/24/2009 04/20/2020 Ulcer of heel and midfoot 02/08/20092017 Pain in limb 06/29/2008 02/21/2019 Dermatophytosis of nail 06/29/2008 04/20/19 21 Corns and callosities 06/29/2008 04/16/2017 Essential hypertension, benign 03/27/2008 0 03/16/2015 DM w/o complication type II, uncontrolled 200812/07/2014 Overview: A1c 15.7 as of 2005 per old labs Down to 7.2 as of 2009 -- -CHECKING TWICE DAILY Routine gynecological examination 03/09/2008 04/16/2017 DIABETIC FOOT ULCER 03/09/2008 04/16/2017 Overview: [facility] Horn documented as of this encounter (statuses as of 04/02/2022) [facility] History of Past illness Narrative* Problem Noted Date Resolved Date Other chronic pain 04/16/2017 02/21/2019 Other adjustment reaction wi th predominant disturbance of other emotions 05/02/2011 04/20/2020 Eating disorder NEC 05/02/2011 04/20/2020 Morbid obesity 03/11/2011 12/16/2018 Biliary colic 03/09/2011 04/20/2020 Xerosis of skin 02/13/2011 04/20/2020 Tendonitis 02/26/2010 04/20/2020 ACL tear 11/26/2009 04/20/2020 Knee pain 11/26/2009 04/20/2020 Generalized pain 10/01/2009 02/21/2019 Chronic pain 09/24/2009 02/21/2019 Elbow joint pain 09/24/2009 04/20/2020 Ulcer of heel and midfoot 02/08/20092017 Pain in limb 06/29/2008 02/21/2019 Dermatophytosis of nail 06/29/2008 04/20/19 21 Corns and callosities 06/29/2008 04/16/2017 Essential hypertension, benign 03/27/2008 0 03/16/2015 DM w/o complication type II, uncontrolled 200812/07/2014 Overview: A1c 15.7 as of 2005 per old labs Down to 7.2 as of 2009 -- -CHECKING TWICE DAILY Routine gynecological examination 03/09/2008 04/16/2017 DIABETIC FOOT ULCER 03/09/2008 04/16/2017 Overview: Follows with [facility], Dr. Santiago Montero documented as of this encounter (statuses as of 04/03/2022) [facility] History of Past illness Narrative* Problem Noted Date Resolved Date Other chronic pain 04/16/2017 02/21/2019 Other adjustment reaction wi th predominant disturbance of other emotions 05/02/2011 04/20/2020 Eating disorder NEC 05/02/2011 04/20/2020 Morbid obesity 03/11/2011 12/16/2018 Biliary colic 03/09/2011 04/20/2020 Xerosis of skin 02/13/2011 04/20/2020 Tendonitis 02/26/2010 04/20/2020 ACL tear 11/26/2009 04/20/2020 Knee pain 11/26/2009 04/20/2020 Generalized pain 10/01/2009 02/21/2019 Chronic pain 09/24/2009 02/21/2019 Elbow joint pain 09/24/2009 04/20/2020 Ulcer of heel and midfoot 02/08/20092017 Pain in limb 06/29/2008 02/21/2019 Dermatophytosis of nail 06/29/2008 04/20/19 21 Corns and callosities 06/29/2008 04/16/2017 Essential hypertension, benign 03/27/2008 0 03/16/2015 DM w/o complication type II, uncontrolled 200812/07/2014 Overview: A1c 15.7 as of 2005 per old labs Down to 7.2 as of 2009 -- -CHECKING TWICE DAILY Routine gynecological examination 03/09/2008 04/16/2017 DIABETIC FOOT ULCER 03/09/2008 04/16/2017 Overview: Follows with [facility], Dr. Henderson documented as of this encounter (statuses as of 04/10/2022) [facility] History of Past illness Narrative* Problem Noted Date Resolved Date Other chronic pain 04/16/2017 02/21/2019 Other adjustment reaction wi th predominant disturbance of other emotions 05/02/2011 04/20/2020 Eating disorder NEC 05/02/2011 04/20/2020 Morbid obesity 03/11/2011 12/16/2018 Biliary colic 03/09/2011 04/20/2020 Xerosis of skin 02/13/2011 04/20/2020 Tendonitis 02/26/2010 04/20/2020 ACL tear 11/26/2009 04/20/2020 Knee pain 11/26/2009 04/20/2020 Generalized pain 10/01/2009 02/21/2019 Chronic pain 09/24/2009 02/21/2019 Elbow joint pain 09/24/2009 04/20/2020 Ulcer of heel and midfoot 02/08/20092017 Pain in limb 06/29/2008 02/21/2019 Dermatophytosis of nail 06/29/2008 04/20/19 21 Corns and callosities 06/29/2008 04/16/2017 Essential hypertension, benign 03/27/2008 0 03/16/2015 DM w/o complication type II, uncontrolled 200812/07/2014 Overview: A1c 15.7 as of 2005 per old labs Down to 7.2 as of 2009 -- -CHECKING TWICE DAILY Routine gynecological examination 03/09/2008 04/16/2017 DIABETIC FOOT ULCER 03/09/2008 04/16/2017 Overview: [facility] Dr. Henderson documented as of this encounter (statuses as of 04/29/2022) [facility] History of Past illness Narrative* Problem Noted Date Resolved Date Other chronic pain 04/16/2017 02/21/2019 Other adjustment reaction wi th predominant disturbance of other emotions 05/02/2011 04/20/2020 Eating disorder NEC 05/02/2011 04/20/2020 Morbid obesity 03/11/2011 12/16/2018 Biliary colic 03/09/2011 04/20/2020 Xerosis of skin 02/13/2011 04/20/2020 Tendonitis 02/26/2010 04/20/2020 ACL tear 11/26/2009 04/20/2020 Knee pain 11/26/2009 04/20/2020 Generalized pain 10/01/2009 02/21/2019 Chronic pain 09/24/2009 02/21/2019 Elbow joint pain 09/24/2009 04/20/2020 Ulcer of heel and midfoot 02/08/20092017 Pain in limb 06/29/2008 02/21/2019 Dermatophytosis of nail 06/29/2008 04/20/19 21 Corns and callosities 06/29/2008 04/16/2017 Essential hypertension, benign 03/27/2008 0 03/16/2015 DM w/o complication type II, uncontrolled 200812/07/2014 Overview: A1c 15.7 as of 2005 per old labs Down to 7.2 as of 2009 -- -CHECKING TWICE DAILY Routine gynecological examination 03/09/2008 04/16/2017 DIABETIC FOOT ULCER 03/09/2008 04/16/2017 Overview: [facility] Horn documented as of this encounter (statuses as of 05/01/2022) [facility]2018 History of Past illness Narrative* Problem Noted Date Resolved Date Other chronic pain 04/16/2017 02/21/2019 Other adjustment reaction wi th predominant disturbance of other emotions 05/02/2011 04/20/2020 Eating disorder NEC 05/02/2011 04/20/2020 Morbid obesity 03/11/2011 12/16/2018 Biliary colic 03/09/2011 04/20/2020 Xerosis of skin 02/13/2011 04/20/2020 Tendonitis 02/26/2010 04/20/2020 ACL tear 11/26/2009 04/20/2020 Knee pain 11/26/2009 04/20/2020 Generalized pain 10/01/2009 02/21/2019 Chronic pain 09/24/2009 02/21/2019 Elbow joint pain 09/24/2009 04/20/2020 Ulcer of heel and midfoot 02/08/20092017 Pain in limb 06/29/2008 02/21/2019 Dermatophytosis of nail 06/29/2008 04/20/19 21 Corns and callosities 06/29/2008 04/16/2017 Essential hypertension, benign 03/27/2008 0 03/16/2015 DM w/o complication type II, uncontrolled 200812/07/2014 Overview: A1c 15.7 as of 2005 per old labs Down to 7.2 as of 2009 -- -CHECKING TWICE DAILY Routine gynecological examination 03/09/2008 04/16/2017 DIABETIC FOOT ULCER 03/09/2008 04/16/2017 Overview: [facility] Horn documented as of this encounter (statuses as of 05/02/2022) [facility] History of Past illness Narrative* Problem Noted Date Resolved Date Other chronic pain 04/16/2017 02/21/2019 Other adjustment reaction wi th predominant disturbance of other emotions 05/02/2011 04/20/2020 Eating disorder NEC 05/02/2011 04/20/2020 Morbid obesity 03/11/2011 12/16/2018 Biliary colic 03/09/2011 04/20/2020 Xerosis of skin 02/13/2011 04/20/2020 Tendonitis 02/26/2010 04/20/2020 ACL tear 11/26/2009 04/20/2020 Knee pain 11/26/2009 04/20/2020 Generalized pain 10/01/2009 02/21/2019 Chronic pain 09/24/2009 02/21/2019 Elbow joint pain 09/24/2009 04/20/2020 Ulcer of heel and midfoot 02/08/20092017 Pain in limb 06/29/2008 02/21/2019 Dermatophytosis of nail 06/29/2008 04/20/19 21 Corns and callosities 06/29/2008 04/16/2017 Essential hypertension, benign 03/27/2008 0 03/16/2015 DM w/o complication type II, uncontrolled 200812/07/2014 Overview: A1c 15.7 as of 2005 per old labs Down to 7.2 as of 2009 -- -CHECKING TWICE DAILY Routine gynecological examination 03/09/2008 04/16/2017 DIABETIC FOOT ULCER 03/09/2008 04/16/2017 Overview: Follows with [facility], [facility], Dr. Henderson documented as of this encounter (statuses as of 05/13/2022) [facility] History of Past illness Narrative* Problem Noted Date Resolved Date Other chronic pain 04/16/2017 02/21/2019 Other adjustment reaction wi th predominant disturbance of other emotions 05/02/2011 04/20/2020 Eating disorder NEC 05/02/2011 04/20/2020 Morbid obesity 03/11/2011 12/16/2018 Biliary colic 03/09/2011 04/20/2020 Xerosis of skin 02/13/2011 04/20/2020 Tendonitis 02/26/2010 04/20/2020 ACL tear 11/26/2009 04/20/2020 Knee pain 11/26/2009 04/20/2020 Generalized pain 10/01/2009 02/21/2019 Chronic pain 09/24/2009 02/21/2019 Elbow joint pain 09/24/2009 04/20/2020 Ulcer of heel and midfoot 02/08/20092017 Pain in limb 06/29/2008 02/21/2019 Dermatophytosis of nail 06/29/2008 04/20/19 21 Corns and callosities 06/29/2008 04/16/2017 Essential hypertension, benign 03/27/2008 0 03/16/2015 DM w/o complication type II, uncontrolled 200812/07/2014 Overview: A1c 15.7 as of 2005 per old labs Down to 7.2 as of 2009 -- -CHECKING TWICE DAILY Routine gynecological examination 03/09/2008 04/16/2017 DIABETIC FOOT ULCER 03/09/2008 04/16/2017 Overview: [facility] Dr. Henderson documented as of this encounter (statuses as of 05/26/2022) [facility] History of Past illness Narrative* Problem Noted Date Resolved Date Other chronic pain 04/16/2017 02/21/2019 Other adjustment reaction wi th predominant disturbance of other emotions 05/02/2011 04/20/2020 Eating disorder NEC 05/02/2011 04/20/2020 Morbid obesity 03/11/2011 12/16/2018 Biliary colic 03/09/2011 04/20/2020 Xerosis of skin 02/13/2011 04/20/2020 Tendonitis 02/26/2010 04/20/2020 ACL tear 11/26/2009 04/20/2020 Knee pain 11/26/2009 04/20/2020 Generalized pain 10/01/2009 02/21/2019 Chronic pain 09/24/2009 02/21/2019 Elbow joint pain 09/24/2009 04/20/2020 Ulcer of heel and midfoot 02/08/20092017 Pain in limb 06/29/2008 02/21/2019 Dermatophytosis of nail 06/29/2008 04/20/19 21 Corns and callosities 06/29/2008 04/16/2017 Essential hypertension, benign 03/27/2008 0 03/16/2015 DM w/o complication type II, uncontrolled 200812/07/2014 Overview: A1c 15.7 as of 2005 per old labs Down to 7.2 as of 2009 -- -CHECKING TWICE DAILY Routine gynecological examination 03/09/2008 04/16/2017 DIABETIC FOOT ULCER 03/09/2008 04/16/2017 Overview: [facility] Horn documented as of this encounter (statuses as of 06/09/2022) [facility] History of Past illness Narrative* Problem Noted Date Resolved Date Other chronic pain 04/16/2017 02/21/2019 Other adjustment reaction wi th predominant disturbance of other emotions 05/02/2011 04/20/2020 Eating disorder NEC 05/02/2011 04/20/2020 Morbid obesity 03/11/2011 12/16/2018 Biliary colic 03/09/2011 04/20/2020 Xerosis of skin 02/13/2011 04/20/2020 Tendonitis 02/26/2010 04/20/2020 ACL tear 11/26/2009 04/20/2020 Knee pain 11/26/2009 04/20/2020 Generalized pain 10/01/2009 02/21/2019 Chronic pain 09/24/2009 02/21/2019 Elbow joint pain 09/24/2009 04/20/2020 Ulcer of heel and midfoot 02/08/20092017 Pain in limb 06/29/2008 02/21/2019 Dermatophytosis of nail 06/29/2008 04/20/19 21 Corns and callosities 06/29/2008 04/16/2017 Essential hypertension, benign 03/27/2008 0 03/16/2015 DM w/o complication type II, uncontrolled 200812/07/2014 Overview: A1c 15.7 as of 2005 per old labs Down to 7.2 as of 2009 -- -CHECKING TWICE DAILY Routine gynecological examination 03/09/2008 04/16/2017 DIABETIC FOOT ULCER 03/09/2008 04/16/2017 Overview: [facility] Horn documented as of this encounter (statuses as of 06/13/2022) [facility] History of Past illness Narrative* Problem Noted Date Resolved Date Other chronic pain 04/16/2017 02/21/2019 Other adjustment reaction wi th predominant disturbance of other emotions 05/02/2011 04/20/2020 Eating disorder NEC 05/02/2011 04/20/2020 Morbid obesity 03/11/2011 12/16/2018 Biliary colic 03/09/2011 04/20/2020 Xerosis of skin 02/13/2011 04/20/2020 Tendonitis 02/26/2010 04/20/2020 ACL tear 11/26/2009 04/20/2020 Knee pain 11/26/2009 04/20/2020 Generalized pain 10/01/2009 02/21/2019 Chronic pain 09/24/2009 02/21/2019 Elbow joint pain 09/24/2009 04/20/2020 Ulcer of heel and midfoot 02/08/20092017 Pain in limb 06/29/2008 02/21/2019 Dermatophytosis of nail 06/29/2008 04/20/19 21 Corns and callosities 06/29/2008 04/16/2017 Essential hypertension, benign 03/27/2008 0 03/16/2015 DM w/o complication type II, uncontrolled 200812/07/2014 Overview: A1c 15.7 as of 2005 per old labs Down to 7.2 as of 2009 -- -CHECKING TWICE DAILY Routine gynecological examination 03/09/2008 04/16/2017 DIABETIC FOOT ULCER 03/09/2008 04/16/2017 Overview: Follows with [facility], [facility], Dr. Henderson documented as of this encounter (statuses as of 06/19/2022) [facility] History of Past illness Narrative* Problem Noted Date Resolved Date Other chronic pain 04/16/2017 02/21/2019 Other adjustment reaction wi th predominant disturbance of other emotions 05/02/2011 04/20/2020 Eating disorder NEC 05/02/2011 04/20/2020 Morbid obesity 03/11/2011 12/16/2018 Biliary colic 03/09/2011 04/20/2020 Xerosis of skin 02/13/2011 04/20/2020 Tendonitis 02/26/2010 04/20/2020 ACL tear 11/26/2009 04/20/2020 Knee pain 11/26/2009 04/20/2020 Generalized pain 10/01/2009 02/21/2019 Chronic pain 09/24/2009 02/21/2019 Elbow joint pain 09/24/2009 04/20/2020 Ulcer of heel and midfoot 02/08/20092017 Pain in limb 06/29/2008 02/21/2019 Dermatophytosis of nail 06/29/2008 04/20/19 21 Corns and callosities 06/29/2008 04/16/2017 Essential hypertension, benign 03/27/2008 0 03/16/2015 DM w/o complication type II, uncontrolled 200812/07/2014 Overview: A1c 15.7 as of 2005 per old labs Down to 7.2 as of 2009 -- -CHECKING TWICE DAILY Routine gynecological examination 03/09/2008 04/16/2017 DIABETIC FOOT ULCER 03/09/2008 04/16/2017 Overview: Follows with [facility], [facility], Dr. Henderson documented as of this encounter (statuses as of 06/20/2022) [facility] History of Past illness Narrative* Problem Noted Date Resolved Date Other chronic pain 04/16/2017 02/21/2019 Other adjustment reaction wi th predominant disturbance of other emotions 05/02/2011 04/20/2020 Eating disorder NEC 05/02/2011 04/20/2020 Morbid obesity 03/11/2011 12/16/2018 Biliary colic 03/09/2011 04/20/2020 Xerosis of skin 02/13/2011 04/20/2020 Tendonitis 02/26/2010 04/20/2020 ACL tear 11/26/2009 04/20/2020 Knee pain 11/26/2009 04/20/2020 Generalized pain 10/01/2009 02/21/2019 Chronic pain 09/24/2009 02/21/2019 Elbow joint pain 09/24/2009 04/20/2020 Ulcer of heel and midfoot 02/08/20092017 Pain in limb 06/29/2008 02/21/2019 Dermatophytosis of nail 06/29/2008 04/20/19 21 Corns and callosities 06/29/2008 04/16/2017 Essential hypertension, benign 03/27/2008 0 03/16/2015 DM w/o complication type II, uncontrolled 200812/07/2014 Overview: A1c 15.7 as of 2005 per old labs Down to 7.2 as of 2009 -- -CHECKING TWICE DAILY Routine gynecological examination 03/09/2008 04/16/2017 DIABETIC FOOT ULCER 03/09/2008 04/16/2017 Overview: Follows with [facility], [facility], Dr. Henderson documented as of this encounter (statuses as of 06/20/2022) [facility] History of Past illness Narrative* Problem Noted Date Resolved Date Other chronic pain 04/16/2017 02/21/2019 Other adjustment reaction wi th predominant disturbance of other emotions 05/02/2011 04/20/2020 Eating disorder NEC 05/02/2011 04/20/2020 Morbid obesity 03/11/2011 12/16/2018 Biliary colic 03/09/2011 04/20/2020 Xerosis of skin 02/13/2011 04/20/2020 Tendonitis 02/26/2010 04/20/2020 ACL tear 11/26/2009 04/20/2020 Knee pain 11/26/2009 04/20/2020 Generalized pain 10/01/2009 02/21/2019 Chronic pain 09/24/2009 02/21/2019 Elbow joint pain 09/24/2009 04/20/2020 Ulcer of heel and midfoot 02/08/20092017 Pain in limb 06/29/2008 02/21/2019 Dermatophytosis of nail 06/29/2008 04/20/19 21 Corns and callosities 06/29/2008 04/16/2017 Essential hypertension, benign 03/27/2008 0 03/16/2015 DM w/o complication type II, uncontrolled 200812/07/2014 Overview: A1c 15.7 as of 2005 per old labs Down to 7.2 as of 2009 -- -CHECKING TWICE DAILY Routine gynecological examination 03/09/2008 04/16/2017 DIABETIC FOOT ULCER 03/09/2008 04/16/2017 Overview: [facility] Horn documented as of this encounter (statuses as of 06/24/2022) [facility] History of Past illness Narrative* Problem Noted Date Resolved Date Other chronic pain 04/16/2017 02/21/2019 Other adjustment reaction wi th predominant disturbance of other emotions 05/02/2011 04/20/2020 Eating disorder NEC 05/02/2011 04/20/2020 Morbid obesity 03/11/2011 12/16/2018 Biliary colic 03/09/2011 04/20/2020 Xerosis of skin 02/13/2011 04/20/2020 Tendonitis 02/26/2010 04/20/2020 ACL tear 11/26/2009 04/20/2020 Knee pain 11/26/2009 04/20/2020 Generalized pain 10/01/2009 02/21/2019 Chronic pain 09/24/2009 02/21/2019 Elbow joint pain 09/24/2009 04/20/2020 Ulcer of heel and midfoot 02/08/20092017 Pain in limb 06/29/2008 02/21/2019 Dermatophytosis of nail 06/29/2008 04/20/19 21 Corns and callosities 06/29/2008 04/16/2017 Essential hypertension, benign 03/27/2008 0 03/16/2015 DM w/o complication type II, uncontrolled 200812/07/2014 Overview: A1c 15.7 as of 2005 per old labs Down to 7.2 as of 2009 -- -CHECKING TWICE DAILY Routine gynecological examination 03/09/2008 04/16/2017 DIABETIC FOOT ULCER 03/09/2008 04/16/2017 Overview: [facility] Horn documented as of this encounter (statuses as of 06/25/2022) [facility] History of Past illness Narrative* Problem Noted Date Resolved Date Other chronic pain 04/16/2017 02/21/2019 Other adjustment reaction wi th predominant disturbance of other emotions 05/02/2011 04/20/2020 Eating disorder NEC 05/02/2011 04/20/2020 Morbid obesity 03/11/2011 12/16/2018 Biliary colic 03/09/2011 04/20/2020 Xerosis of skin 02/13/2011 04/20/2020 Tendonitis 02/26/2010 04/20/2020 ACL tear 11/26/2009 04/20/2020 Knee pain 11/26/2009 04/20/2020 Generalized pain 10/01/2009 02/21/2019 Chronic pain 09/24/2009 02/21/2019 Elbow joint pain 09/24/2009 04/20/2020 Ulcer of heel and midfoot 02/08/20092017 Pain in limb 06/29/2008 02/21/2019 Dermatophytosis of nail 06/29/2008 04/20/19 21 Corns and callosities 06/29/2008 04/16/2017 Essential hypertension, benign 03/27/2008 0 03/16/2015 DM w/o complication type II, uncontrolled 200812/07/2014 Overview: A1c 15.7 as of 2005 per old labs Down to 7.2 as of 2009 -- -CHECKING TWICE DAILY Routine gynecological examination 03/09/2008 04/16/2017 DIABETIC FOOT ULCER 03/09/2008 04/16/2017 Overview: Follows with [facility], [facility], Dr. Henderson documented as of this encounter (statuses as of 07/02/2022) [facility] History of Past illness Narrative* Problem Noted Date Resolved Date Other chronic pain 04/16/2017 02/21/2019 Other adjustment reaction wi th predominant disturbance of other emotions 05/02/2011 04/20/2020 Eating disorder NEC 05/02/2011 04/20/2020 Morbid obesity 03/11/2011 12/16/2018 Biliary colic 03/09/2011 04/20/2020 Xerosis of skin 02/13/2011 04/20/2020 Tendonitis 02/26/2010 04/20/2020 ACL tear 11/26/2009 04/20/2020 Knee pain 11/26/2009 04/20/2020 Generalized pain 10/01/2009 02/21/2019 Chronic pain 09/24/2009 02/21/2019 Elbow joint pain 09/24/2009 04/20/2020 Ulcer of heel and midfoot 02/08/20092017 Pain in limb 06/29/2008 02/21/2019 Dermatophytosis of nail 06/29/2008 04/20/19 21 Corns and callosities 06/29/2008 04/16/2017 Essential hypertension, benign 03/27/2008 0 03/16/2015 DM w/o complication type II, uncontrolled 200812/07/2014 Overview: A1c 15.7 as of 2005 per old labs Down to 7.2 as of 2009 -- -CHECKING TWICE DAILY Routine gynecological examination 03/09/2008 04/16/2017 DIABETIC FOOT ULCER 03/09/2008 04/16/2017 Overview: Follows with [facility], [facility], Dr. Henderson documented as of this encounter (statuses as of 07/03/2022) [facility] History of Past illness Narrative* Problem Noted Date Resolved Date Other chronic pain 04/16/2017 02/21/2019 Other adjustment reaction wi th predominant disturbance of other emotions 05/02/2011 04/20/2020 Eating disorder NEC 05/02/2011 04/20/2020 Morbid obesity 03/11/2011 12/16/2018 Biliary colic 03/09/2011 04/20/2020 Xerosis of skin 02/13/2011 04/20/2020 Tendonitis 02/26/2010 04/20/2020 ACL tear 11/26/2009 04/20/2020 Knee pain 11/26/2009 04/20/2020 Generalized pain 10/01/2009 02/21/2019 Chronic pain 09/24/2009 02/21/2019 Elbow joint pain 09/24/2009 04/20/2020 Ulcer of heel and midfoot 02/08/20092017 Pain in limb 06/29/2008 02/21/2019 Dermatophytosis of nail 06/29/2008 04/20/19 21 Corns and callosities 06/29/2008 04/16/2017 Essential hypertension, benign 03/27/2008 0 03/16/2015 DM w/o complication type II, uncontrolled 200812/07/2014 Overview: A1c 15.7 as of 2005 per old labs Down to 7.2 as of 2009 -- -CHECKING TWICE DAILY Routine gynecological examination 03/09/2008 04/16/2017 DIABETIC FOOT ULCER 03/09/2008 04/16/2017 Overview: [facility] documented as of this encounter (statuses as of 07/31/2022) [facility] History of Past illness Narrative* Problem Noted Date Resolved Date Other chronic pain 04/16/2017 02/21/2019 Other adjustment reaction wi th predominant disturbance of other emotions 05/02/2011 04/20/2020 Eating disorder NEC 05/02/2011 04/20/2020 Morbid obesity 03/11/2011 12/16/2018 Biliary colic 03/09/2011 04/20/2020 Xerosis of skin 02/13/2011 04/20/2020 Tendonitis 02/26/2010 04/20/2020 ACL tear 11/26/2009 04/20/2020 Knee pain 11/26/2009 04/20/2020 Generalized pain 10/01/2009 02/21/2019 Chronic pain 09/24/2009 02/21/2019 Elbow joint pain 09/24/2009 04/20/2020 Ulcer of heel and midfoot 02/08/20092017 Pain in limb 06/29/2008 02/21/2019 Dermatophytosis of nail 06/29/2008 04/20/19 21 Corns and callosities 06/29/2008 04/16/2017 Essential hypertension, benign 03/27/2008 0 03/16/2015 DM w/o complication type II, uncontrolled 200812/07/2014 Overview: A1c 15.7 as of 2005 per old labs Down to 7.2 as of 2009 -- -CHECKING TWICE DAILY Routine gynecological examination 03/09/2008 04/16/2017 DIABETIC FOOT ULCER 03/09/2008 04/16/2017 Overview: [facility] documented as of this encounter (statuses as of 08/01/2022) [facility] History of Past illness Narrative* Problem Noted Date Resolved Date Other chronic pain 04/16/2017 02/21/2019 Other adjustment reaction wi th predominant disturbance of other emotions 05/02/2011 04/20/2020 Eating disorder NEC 05/02/2011 04/20/2020 Morbid obesity 03/11/2011 12/16/2018 Biliary colic 03/09/2011 04/20/2020 Xerosis of skin 02/13/2011 04/20/2020 Tendonitis 02/26/2010 04/20/2020 ACL tear 11/26/2009 04/20/2020 Knee pain 11/26/2009 04/20/2020 Generalized pain 10/01/2009 02/21/2019 Chronic pain 09/24/2009 02/21/2019 Elbow joint pain 09/24/2009 04/20/2020 Ulcer of heel and midfoot 02/08/20092017 Pain in limb 06/29/2008 02/21/2019 Dermatophytosis of nail 06/29/2008 04/20/19 21 Corns and callosities 06/29/2008 04/16/2017 Essential hypertension, benign 03/27/2008 0 03/16/2015 DM w/o complication type II, uncontrolled 200812/07/2014 Overview: A1c 15.7 as of 2005 per old labs Down to 7.2 as of 2009 -- -CHECKING TWICE DAILY Routine gynecological examination 03/09/2008 04/16/2017 DIABETIC FOOT ULCER 03/09/2008 04/16/2017 Overview: [facility] with [facility], Dr. Santiago Montero Acute gastritis 12/16/2007 08/04/2022 Overview: EGD with minimal gastritis, negative H Pylori 12/07 documented as of this encounter (statuses as of 08/05/2022) [facility] History of Past illness Narrative* Problem Noted Date Resolved Date Other chronic pain 04/16/2017 02/21/2019 Other adjustment reaction wi th predominant disturbance of other emotions 05/02/2011 04/20/2020 Eating disorder NEC 05/02/2011 04/20/2020 Morbid obesity 03/11/2011 12/16/2018 Biliary colic 03/09/2011 04/20/2020 Xerosis of skin 02/13/2011 04/20/2020 Tendonitis 02/26/2010 04/20/2020 ACL tear 11/26/2009 04/20/2020 Knee pain 11/26/2009 04/20/2020 Generalized pain 10/01/2009 02/21/2019 Chronic pain 09/24/2009 02/21/2019 Elbow joint pain 09/24/2009 04/20/2020 Ulcer of heel and midfoot 02/08/20092017 Pain in limb 06/29/2008 02/21/2019 Dermatophytosis of nail 06/29/2008 04/20/19 21 Corns and callosities 06/29/2008 04/16/2017 Essential hypertension, benign 03/27/2008 0 03/16/2015 DM w/o complication type II, uncontrolled 200812/07/2014 Overview: A1c 15.7 as of 2005 per old labs Down to 7.2 as of 2009 -- -CHECKING TWICE DAILY Routine gynecological examination 03/09/2008 04/16/2017 DIABETIC FOOT ULCER 03/09/2008 04/16/2017 Overview: [facility] Acute gastritis 12/16/2007 08/04/2022 Overview: EGD with minimal gastritis, negative H Pylori 12/07 documented as of this encounter (statuses as of 08/05/2022) [facility] History of Past illness Narrative* Problem Noted Date Resolved Date Other chronic pain 04/16/2017 02/21/2019 Other adjustment reaction wi th predominant disturbance of other emotions 05/02/2011 04/20/2020 Eating disorder NEC 05/02/2011 04/20/2020 Morbid obesity 03/11/2011 12/16/2018 Biliary colic 03/09/2011 04/20/2020 Xerosis of skin 02/13/2011 04/20/2020 Tendonitis 02/26/2010 04/20/2020 ACL tear 11/26/2009 04/20/2020 Knee pain 11/26/2009 04/20/2020 Generalized pain 10/01/2009 02/21/2019 Chronic pain 09/24/2009 02/21/2019 Elbow joint pain 09/24/2009 04/20/2020 Ulcer of heel and midfoot 02/08/20092017 Pain in limb 06/29/2008 02/21/2019 Dermatophytosis of nail 06/29/2008 04/20/19 21 Corns and callosities 06/29/2008 04/16/2017 Essential hypertension, benign 03/27/2008 0 03/16/2015 DM w/o complication type II, uncontrolled 200812/07/2014 Overview: A1c 15.7 as of 2005 per old labs Down to 7.2 as of 2009 -- -CHECKING TWICE DAILY Routine gynecological examination 03/09/2008 04/16/2017 DIABETIC FOOT ULCER 03/09/2008 04/16/2017 Overview: Follows with [facility], [facility], Dr. Henderson Acute gastritis 12/16/2007 08/04/2022 Overview: EGD with minimal gastritis, negative H Pylori 12/07 documented as of this encounter (statuses as of 08/05/2022) [facility] History of Past illness Narrative* Problem Noted Date Resolved Date Other chronic pain 04/16/2017 02/21/2019 Other adjustment reaction wi th predominant disturbance of other emotions 05/02/2011 04/20/2020 Eating disorder NEC 05/02/2011 04/20/2020 Morbid obesity 03/11/2011 12/16/2018 Biliary colic 03/09/2011 04/20/2020 Xerosis of skin 02/13/2011 04/20/2020 Tendonitis 02/26/2010 04/20/2020 ACL tear 11/26/2009 04/20/2020 Knee pain 11/26/2009 04/20/2020 Generalized pain 10/01/2009 02/21/2019 Chronic pain 09/24/2009 02/21/2019 Elbow joint pain 09/24/2009 04/20/2020 Ulcer of heel and midfoot 02/08/20092017 Pain in limb 06/29/2008 02/21/2019 Dermatophytosis of nail 06/29/2008 04/20/19 21 Corns and callosities 06/29/2008 04/16/2017 Essential hypertension, benign 03/27/2008 0 03/16/2015 DM w/o complication type II, uncontrolled 200812/07/2014 Overview: A1c 15.7 as of 2005 per old labs Down to 7.2 as of 2009 -- -CHECKING TWICE DAILY Routine gynecological examination 03/09/2008 04/16/2017 DIABETIC FOOT ULCER 03/09/2008 04/16/2017 Overview: Follows with [facility], Dr. Santiago Mnotero Acute gastritis 12/16/2007 08/04/2022 Overview: EGD with minimal gastritis, negative H Pylori 12/07 documented as of this encounter (statuses as of 08/06/2022) [facility] History of Past illness Narrative* Problem Noted Date Resolved Date Other chronic pain 04/16/2017 02/21/2019 Other adjustment reaction wi th predominant disturbance of other emotions 05/02/2011 04/20/2020 Eating disorder NEC 05/02/2011 04/20/2020 Morbid obesity 03/11/2011 12/16/2018 Biliary colic 03/09/2011 04/20/2020 Xerosis of skin 02/13/2011 04/20/2020 Tendonitis 02/26/2010 04/20/2020 ACL tear 11/26/2009 04/20/2020 Knee pain 11/26/2009 04/20/2020 Generalized pain 10/01/2009 02/21/2019 Chronic pain 09/24/2009 02/21/2019 Elbow joint pain 09/24/2009 04/20/2020 Ulcer of heel and midfoot 02/08/20092017 Pain in limb 06/29/2008 02/21/2019 Dermatophytosis of nail 06/29/2008 04/20/19 21 Corns and callosities 06/29/2008 04/16/2017 Essential hypertension, benign 03/27/2008 0 03/16/2015 DM w/o complication type II, uncontrolled 200812/07/2014 Overview: A1c 15.7 as of 2005 per old labs Down to 7.2 as of 2009 -- -CHECKING TWICE DAILY Routine gynecological examination 03/09/2008 04/16/2017 DIABETIC FOOT ULCER 03/09/2008 04/16/2017 Overview: Follows with [facility], [facility], Dr. Henderson Acute gastritis 12/16/2007 08/04/2022 Overview: EGD with minimal gastritis, negative H Pylori 12/07 documented as of this encounter (statuses as of 08/18/2022) [facility] History of Past illness Narrative* Problem Noted Date Resolved Date Other chronic pain 04/16/2017 02/21/2019 Other adjustment reaction wi th predominant disturbance of other emotions 05/02/2011 04/20/2020 Eating disorder NEC 05/02/2011 04/20/2020 Morbid obesity 03/11/2011 12/16/2018 Biliary colic 03/09/2011 04/20/2020 Xerosis of skin 02/13/2011 04/20/2020 Tendonitis 02/26/2010 04/20/2020 ACL tear 11/26/2009 04/20/2020 Knee pain 11/26/2009 04/20/2020 Generalized pain 10/01/2009 02/21/2019 Chronic pain 09/24/2009 02/21/2019 Elbow joint pain 09/24/2009 04/20/2020 Ulcer of heel and midfoot 02/08/20092017 Pain in limb 06/29/2008 02/21/2019 Dermatophytosis of nail 06/29/2008 04/20/19 21 Corns and callosities 06/29/2008 04/16/2017 Essential hypertension, benign 03/27/2008 0 03/16/2015 DM w/o complication type II, uncontrolled 200812/07/2014 Overview: A1c 15.7 as of 2005 per old labs Down to 7.2 as of 2009 -- -CHECKING TWICE DAILY Routine gynecological examination 03/09/2008 04/16/2017 DIABETIC FOOT ULCER 03/09/2008 04/16/2017 Overview: [facility] Horn Acute gastritis 12/16/2007 08/04/2022 Overview: EGD with minimal gastritis, negative H Pylori 12/07 documented as of this encounter (statuses as of 08/20/2022) [facility] History of Past illness Narrative* Problem Noted Date Resolved Date Other chronic pain 04/16/2017 02/21/2019 Other adjustment reaction wi th predominant disturbance of other emotions 05/02/2011 04/20/2020 Eating disorder NEC 05/02/2011 04/20/2020 Morbid obesity 03/11/2011 12/16/2018 Biliary colic 03/09/2011 04/20/2020 Xerosis of skin 02/13/2011 04/20/2020 Tendonitis 02/26/2010 04/20/2020 ACL tear 11/26/2009 04/20/2020 Knee pain 11/26/2009 04/20/2020 Generalized pain 10/01/2009 02/21/2019 Chronic pain 09/24/2009 02/21/2019 Elbow joint pain 09/24/2009 04/20/2020 Ulcer of heel and midfoot 02/08/20092017 Pain in limb 06/29/2008 02/21/2019 Dermatophytosis of nail 06/29/2008 04/20/19 21 Corns and callosities 06/29/2008 04/16/2017 Essential hypertension, benign 03/27/2008 0 03/16/2015 DM w/o complication type II, uncontrolled 200812/07/2014 Overview: A1c 15.7 as of 2005 per old labs Down to 7.2 as of 2009 -- -CHECKING TWICE DAILY Routine gynecological examination 03/09/2008 04/16/2017 DIABETIC FOOT ULCER 03/09/2008 04/16/2017 Overview: [facility] Horn Acute gastritis 12/16/2007 08/04/2022 Overview: EGD with minimal gastritis, negative H Pylori 12/07 documented as of this encounter (statuses as of 08/21/2022) [facility] History of Past illness Narrative* Problem Noted Date Resolved Date Other chronic pain 04/16/2017 02/21/2019 Other adjustment reaction wi th predominant disturbance of other emotions 05/02/2011 04/20/2020 Eating disorder NEC 05/02/2011 04/20/2020 Morbid obesity 03/11/2011 12/16/2018 Biliary colic 03/09/2011 04/20/2020 Xerosis of skin 02/13/2011 04/20/2020 Tendonitis 02/26/2010 04/20/2020 ACL tear 11/26/2009 04/20/2020 Knee pain 11/26/2009 04/20/2020 Generalized pain 10/01/2009 02/21/2019 Chronic pain 09/24/2009 02/21/2019 Elbow joint pain 09/24/2009 04/20/2020 Ulcer of heel and midfoot 02/08/20092017 Pain in limb 06/29/2008 02/21/2019 Dermatophytosis of nail 06/29/2008 04/20/19 21 Corns and callosities 06/29/2008 04/16/2017 Essential hypertension, benign 03/27/2008 0 03/16/2015 DM w/o complication type II, uncontrolled 200812/07/2014 Overview: A1c 15.7 as of 2005 per old labs Down to 7.2 as of 2009 -- -CHECKING TWICE DAILY Routine gynecological examination 03/09/2008 04/16/2017 DIABETIC FOOT ULCER 03/09/2008 04/16/2017 Overview: Follows with [facility], [facility], Dr. Henderson Acute gastritis 12/16/2007 08/04/2022 Overview: EGD with minimal gastritis, negative H Pylori 12/07 documented as of this encounter (statuses as of 08/26/2022) [facility] History of Past illness Narrative* Problem Noted Date Resolved Date Other chronic pain 04/16/2017 02/21/2019 Other adjustment reaction wi th predominant disturbance of other emotions 05/02/2011 04/20/2020 Eating disorder NEC 05/02/2011 04/20/2020 Morbid obesity 03/11/2011 12/16/2018 Biliary colic 03/09/2011 04/20/2020 Xerosis of skin 02/13/2011 04/20/2020 Tendonitis 02/26/2010 04/20/2020 ACL tear 11/26/2009 04/20/2020 Knee pain 11/26/2009 04/20/2020 Generalized pain 10/01/2009 02/21/2019 Chronic pain 09/24/2009 02/21/2019 Elbow joint pain 09/24/2009 04/20/2020 Ulcer of heel and midfoot 02/08/20092017 Pain in limb 06/29/2008 02/21/2019 Dermatophytosis of nail 06/29/2008 04/20/19 21 Corns and callosities 06/29/2008 04/16/2017 Essential hypertension, benign 03/27/2008 0 03/16/2015 DM w/o complication type II, uncontrolled 200812/07/2014 Overview: A1c 15.7 as of 2005 per old labs Down to 7.2 as of 2009 -- -CHECKING TWICE DAILY Routine gynecological examination 03/09/2008 04/16/2017 DIABETIC FOOT ULCER 03/09/2008 04/16/2017 Overview: Follows with [facility], [facility], Dr. Henderson Acute gastritis 12/16/2007 08/04/2022 Overview: EGD with minimal gastritis, negative H Pylori 12/07 documented as of this encounter (statuses as of 08/27/2022) [facility] History of Past illness Narrative* Problem Noted Date Resolved Date Other chronic pain 04/16/2017 02/21/2019 Other adjustment reaction wi th predominant disturbance of other emotions 05/02/2011 04/20/2020 Eating disorder NEC 05/02/2011 04/20/2020 Morbid obesity 03/11/2011 12/16/2018 Biliary colic 03/09/2011 04/20/2020 Xerosis of skin 02/13/2011 04/20/2020 Tendonitis 02/26/2010 04/20/2020 ACL tear 11/26/2009 04/20/2020 Knee pain 11/26/2009 04/20/2020 Generalized pain 10/01/2009 02/21/2019 Chronic pain 09/24/2009 02/21/2019 Elbow joint pain 09/24/2009 04/20/2020 Ulcer of heel and midfoot 02/08/20092017 Pain in limb 06/29/2008 02/21/2019 Dermatophytosis of nail 06/29/2008 04/20/19 21 Corns and callosities 06/29/2008 04/16/2017 Essential hypertension, benign 03/27/2008 0 03/16/2015 DM w/o complication type II, uncontrolled 200812/07/2014 Overview: A1c 15.7 as of 2005 per old labs Down to 7.2 as of 2009 -- -CHECKING TWICE DAILY Routine gynecological examination 03/09/2008 04/16/2017 DIABETIC FOOT ULCER 03/09/2008 04/16/2017 Overview: Follows with [facility], [facility], Dr. Henderson Acute gastritis 12/16/2007 08/04/2022 Overview: EGD with minimal gastritis, negative H Pylori 12/07 documented as of this encounter (statuses as of 08/27/2022) [facility] History of Past illness Narrative* Problem Noted Date Resolved Date Other chronic pain 04/16/2017 02/21/2019 Other adjustment reaction wi th predominant disturbance of other emotions 05/02/2011 04/20/2020 Eating disorder NEC 05/02/2011 04/20/2020 Morbid obesity 03/11/2011 12/16/2018 Biliary colic 03/09/2011 04/20/2020 Xerosis of skin 02/13/2011 04/20/2020 Tendonitis 02/26/2010 04/20/2020 ACL tear 11/26/2009 04/20/2020 Knee pain 11/26/2009 04/20/2020 Generalized pain 10/01/2009 02/21/2019 Chronic pain 09/24/2009 02/21/2019 Elbow joint pain 09/24/2009 04/20/2020 Ulcer of heel and midfoot 02/08/20092017 Pain in limb 06/29/2008 02/21/2019 Dermatophytosis of nail 06/29/2008 04/20/19 21 Corns and callosities 06/29/2008 04/16/2017 Essential hypertension, benign 03/27/2008 0 03/16/2015 DM w/o complication type II, uncontrolled 200812/07/2014 Overview: A1c 15.7 as of 2005 per old labs Down to 7.2 as of 2009 -- -CHECKING TWICE DAILY Routine gynecological examination 03/09/2008 04/16/2017 DIABETIC FOOT ULCER 03/09/2008 04/16/2017 Overview: [facility] Acute gastritis 12/16/2007 08/04/2022 Overview: EGD with minimal gastritis, negative H Pylori 12/07 documented as of this encounter (statuses as of 09/03/2022) [facility] History of Past illness Narrative* Problem Noted Date Diagnosed Date Resolved Date Other chronic pain 04/16/2017 9 Other adjustment reaction wi th predominant disturbance of other emotions 05/02/2011 04/20/2020 Eating disorder NEC 05/02/2011 04/20/19 21 Morbid obesity 03/11/2011 12/16/2018 Biliary colic 03/09/2011 04/20/2020 Xerosis of skin 02/13/2011 04/20/2020 Tendonitis 02/26/2010 04/20/2020 ACL tear 11/26/2009 04/20/2020 Knee pain 11/26/2009 04/20/2020 Generalized pain 10/01/2009 02/21/2019 Chronic pain 09/24/2009 02/21/2019 Elbow joint pain 09/24/2009 04/20/2020 Ulcer of heel and midfoot 02/08/2009 Pain in limb 06/29/2008 02/21/2019 Dermatophytosis of nail 06/29/200804/02 Corns and callosities 06/29/20082017 Essential hypertension, benign 03/27/2008 03/16/2015 DM w/o complication type II, uncontrolled 03/09/2008 12/07/2014 Overview: A1c 15.7 as of 2005 per old labs Down to 7.2 as of 2009 -- -CHECKING TWICE DAILY Routine gynecological examination 03/09/2008 04/16/2017 DIABETIC FOOT ULCER 03/09/2008 04/16/19 18 Overview: Follows with [facility], [facility], Dr. Henderson Acute gastritis 12/16/2007 08/04/2022 Overview: EGD with minimal gastritis, negative H Pylori 12/07 documented as of this encounter (statuses as of 09/10/2022) [facility] History of Past illness Narrative* Problem Noted Date Diagnosed Date Resolved Date Other chronic pain 04/16/2017 9 Other adjustment reaction wi th predominant disturbance of other emotions 05/02/2011 04/20/2020 Eating disorder NEC 05/02/2011 04/20/19 21 Morbid obesity 03/11/2011 12/16/2018 Biliary colic 03/09/2011 04/20/2020 Xerosis of skin 02/13/2011 04/20/2020 Tendonitis 02/26/2010 04/20/2020 ACL tear 11/26/2009 04/20/2020 Knee pain 11/26/2009 04/20/2020 Generalized pain 10/01/2009 02/21/2019 Chronic pain 09/24/2009 02/21/2019 Elbow joint pain 09/24/2009 04/20/2020 Ulcer of heel and midfoot 02/08/2009 Pain in limb 06/29/2008 02/21/2019 Dermatophytosis of nail 06/29/200804/02 Corns and callosities 06/29/20082017 Essential hypertension, benign 03/27/2008 03/16/2015 DM w/o complication type II, uncontrolled 03/09/2008 12/07/2014 Overview: A1c 15.7 as of 2005 per old labs Down to 7.2 as of 2009 -- -CHECKING TWICE DAILY Routine gynecological examination 03/09/2008 04/16/2017 DIABETIC FOOT ULCER 03/09/2008 04/16/19 18 Overview: Follows with [facility], Dr. Santiago Montero Acute gastritis 12/16/2007 08/04/2022 Overview: EGD with minimal gastritis, negative H Pylori 12/07 documented as of this encounter (statuses as of 09/10/2022) [facility] History of Past illness Narrative* Problem Noted Date Diagnosed Date Resolved Date Other chronic pain 04/16/2017 9 Other adjustment reaction wi th predominant disturbance of other emotions 05/02/2011 04/20/2020 Eating disorder NEC 05/02/2011 04/20/19 21 Morbid obesity 03/11/2011 12/16/2018 Biliary colic 03/09/2011 04/20/2020 Xerosis of skin 02/13/2011 04/20/2020 Tendonitis 02/26/2010 04/20/2020 ACL tear 11/26/2009 04/20/2020 Knee pain 11/26/2009 04/20/2020 Generalized pain 10/01/2009 02/21/2019 Chronic pain 09/24/2009 02/21/2019 Elbow joint pain 09/24/2009 04/20/2020 Ulcer of heel and midfoot 02/08/2009 Pain in limb 06/29/2008 02/21/2019 Dermatophytosis of nail 06/29/200804/02 Corns and callosities 06/29/20082017 Essential hypertension, benign 03/27/2008 03/16/2015 DM w/o complication type II, uncontrolled 03/09/2008 12/07/2014 Overview: A1c 15.7 as of 2005 per old labs Down to 7.2 as of 2009 -- -CHECKING TWICE DAILY Routine gynecological examination 03/09/2008 04/16/2017 DIABETIC FOOT ULCER 03/09/2008 04/16/19 18 Overview: [facility] Horn Acute gastritis 12/16/2007 08/04/2022 Overview: EGD with minimal gastritis, negative H Pylori 12/07 documented as of this encounter (statuses as of 09/10/2022) [facility] History of Past illness Narrative* Problem Noted Date Diagnosed Date Resolved Date Other chronic pain 04/16/2017 9 Other adjustment reaction wi th predominant disturbance of other emotions 05/02/2011 04/20/2020 Eating disorder NEC 05/02/2011 04/20/19 21 Morbid obesity 03/11/2011 12/16/2018 Biliary colic 03/09/2011 04/20/2020 Xerosis of skin 02/13/2011 04/20/2020 Tendonitis 02/26/2010 04/20/2020 ACL tear 11/26/2009 04/20/2020 Knee pain 11/26/2009 04/20/2020 Generalized pain 10/01/2009 02/21/2019 Chronic pain 09/24/2009 02/21/2019 Elbow joint pain 09/24/2009 04/20/2020 Ulcer of heel and midfoot 02/08/2009 Pain in limb 06/29/2008 02/21/2019 Dermatophytosis of nail 06/29/200804/02 Corns and callosities 06/29/20082017 Essential hypertension, benign 03/27/2008 03/16/2015 DM w/o complication type II, uncontrolled 03/09/2008 12/07/2014 Overview: A1c 15.7 as of 2005 per old labs Down to 7.2 as of 2009 -- -CHECKING TWICE DAILY Routine gynecological examination 03/09/2008 04/16/2017 DIABETIC FOOT ULCER 03/09/2008 04/16/19 18 Overview: Follows with [facility], Dr. Santiago Montero Acute gastritis 12/16/2007 08/04/2022 Overview: EGD with minimal gastritis, negative H Pylori 12/07 documented as of this encounter (statuses as of 09/11/2022) [facility] History of Past illness Narrative* Problem Noted Date Diagnosed Date Resolved Date Other chronic pain 04/16/2017 9 Other adjustment reaction wi th predominant disturbance of other emotions 05/02/2011 04/20/2020 Eating disorder NEC 05/02/2011 04/20/19 21 Morbid obesity 03/11/2011 12/16/2018 Biliary colic 03/09/2011 04/20/2020 Xerosis of skin 02/13/2011 04/20/2020 Tendonitis 02/26/2010 04/20/2020 ACL tear 11/26/2009 04/20/2020 Knee pain 11/26/2009 04/20/2020 Generalized pain 10/01/2009 02/21/2019 Chronic pain 09/24/2009 02/21/2019 Elbow joint pain 09/24/2009 04/20/2020 Ulcer of heel and midfoot 02/08/2009 Pain in limb 06/29/2008 02/21/2019 Dermatophytosis of nail 06/29/200804/02 Corns and callosities 06/29/20082017 Essential hypertension, benign 03/27/2008 03/16/2015 DM w/o complication type II, uncontrolled 03/09/2008 12/07/2014 Overview: A1c 15.7 as of 2005 per old labs Down to 7.2 as of 2009 -- -CHECKING TWICE DAILY Routine gynecological examination 03/09/2008 04/16/2017 DIABETIC FOOT ULCER 03/09/2008 04/16/19 18 Overview: Follows with [facility], Dr. Santiago Montero Acute gastritis 12/16/2007 08/04/2022 Overview: EGD with minimal gastritis, negative H Pylori 12/07 documented as of this encounter (statuses as of 09/11/2022) [facility] History of Past illness Narrative* Problem Noted Date Diagnosed Date Resolved Date Other chronic pain 04/16/2017 9 Other adjustment reaction wi th predominant disturbance of other emotions 05/02/2011 04/20/2020 Eating disorder NEC 05/02/2011 04/20/19 21 Morbid obesity 03/11/2011 12/16/2018 Biliary colic 03/09/2011 04/20/2020 Xerosis of skin 02/13/2011 04/20/2020 Tendonitis 02/26/2010 04/20/2020 ACL tear 11/26/2009 04/20/2020 Knee pain 11/26/2009 04/20/2020 Generalized pain 10/01/2009 02/21/2019 Chronic pain 09/24/2009 02/21/2019 Elbow joint pain 09/24/2009 04/20/2020 Ulcer of heel and midfoot 02/08/2009 Pain in limb 06/29/2008 02/21/2019 Dermatophytosis of nail 06/29/200804/02 Corns and callosities 06/29/20082017 Essential hypertension, benign 03/27/2008 03/16/2015 DM w/o complication type II, uncontrolled 03/09/2008 12/07/2014 Overview: A1c 15.7 as of 2005 per old labs Down to 7.2 as of 2009 -- -CHECKING TWICE DAILY Routine gynecological examination 03/09/2008 04/16/2017 DIABETIC FOOT ULCER 03/09/2008 04/16/19 18 Overview: [facility], Dr. Santiago Montero Acute gastritis 12/16/2007 08/04/2022 Overview: EGD with minimal gastritis, negative H Pylori 12/07 documented as of this encounter (statuses as of 09/16/2022) [facility]2018 History of Past illness Narrative* Problem Noted Date Diagnosed Date Resolved Date Other chronic pain 04/16/2017 9 Other adjustment reaction wi th predominant disturbance of other emotions 05/02/2011 04/20/2020 Eating disorder NEC 05/02/2011 04/20/19 21 Morbid obesity 03/11/2011 12/16/2018 Biliary colic 03/09/2011 04/20/2020 Xerosis of skin 02/13/2011 04/20/2020 Tendonitis 02/26/2010 04/20/2020 ACL tear 11/26/2009 04/20/2020 Knee pain 11/26/2009 04/20/2020 Generalized pain 10/01/2009 02/21/2019 Chronic pain 09/24/2009 02/21/2019 Elbow joint pain 09/24/2009 04/20/2020 Ulcer of heel and midfoot 02/08/2009 Pain in limb 06/29/2008 02/21/2019 Dermatophytosis of nail 06/29/200804/02 Corns and callosities 06/29/20082017 Essential hypertension, benign 03/27/2008 03/16/2015 DM w/o complication type II, uncontrolled 03/09/2008 12/07/2014 Overview: A1c 15.7 as of 2005 per old labs Down to 7.2 as of 2009 -- -CHECKING TWICE DAILY Routine gynecological examination 03/09/2008 04/16/2017 DIABETIC FOOT ULCER 03/09/2008 04/16/19 18 Overview: [facility], [facility], Dr. Henderson Acute gastritis 12/16/2007 08/04/2022 Overview: EGD with minimal gastritis, negative H Pylori 12/07 documented as of this encounter (statuses as of 09/16/2022) [facility] History of Past illness Narrative* Problem Noted Date Diagnosed Date Resolved Date Other chronic pain 04/16/2017 9 Other adjustment reaction wi th predominant disturbance of other emotions 05/02/2011 04/20/2020 Eating disorder NEC 05/02/2011 04/20/19 21 Morbid obesity 03/11/2011 12/16/2018 Biliary colic 03/09/2011 04/20/2020 Xerosis of skin 02/13/2011 04/20/2020 Tendonitis 02/26/2010 04/20/2020 ACL tear 11/26/2009 04/20/2020 Knee pain 11/26/2009 04/20/2020 Generalized pain 10/01/2009 02/21/2019 Chronic pain 09/24/2009 02/21/2019 Elbow joint pain 09/24/2009 04/20/2020 Ulcer of heel and midfoot 02/08/2009 Pain in limb 06/29/2008 02/21/2019 Dermatophytosis of nail 06/29/200804/02 Corns and callosities 06/29/20082017 Essential hypertension, benign 03/27/2008 03/16/2015 DM w/o complication type II, uncontrolled 03/09/2008 12/07/2014 Overview: A1c 15.7 as of 2005 per old labs Down to 7.2 as of 2009 -- -CHECKING TWICE DAILY Routine gynecological examination 03/09/2008 04/16/2017 DIABETIC FOOT ULCER 03/09/2008 04/16/19 18 Overview: [facility] Dr. Henderson Acute gastritis 12/16/2007 08/04/2022 Overview: EGD with minimal gastritis, negative H Pylori 12/07 documented as of this encounter (statuses as of 09/18/2022) [facility] History of Past illness Narrative* Problem Noted Date Diagnosed Date Resolved Date Other chronic pain 04/16/2017 9 Other adjustment reaction wi th predominant disturbance of other emotions 05/02/2011 04/20/2020 Eating disorder NEC 05/02/2011 04/20/19 21 Morbid obesity 03/11/2011 12/16/2018 Biliary colic 03/09/2011 04/20/2020 Xerosis of skin 02/13/2011 04/20/2020 Tendonitis 02/26/2010 04/20/2020 ACL tear 11/26/2009 04/20/2020 Knee pain 11/26/2009 04/20/2020 Generalized pain 10/01/2009 02/21/2019 Chronic pain 09/24/2009 02/21/2019 Elbow joint pain 09/24/2009 04/20/2020 Ulcer of heel and midfoot 02/08/2009 Pain in limb 06/29/2008 02/21/2019 Dermatophytosis of nail 06/29/200804/02 Corns and callosities 06/29/20082017 Essential hypertension, benign 03/27/2008 03/16/2015 DM w/o complication type II, uncontrolled 03/09/2008 12/07/2014 Overview: A1c 15.7 as of 2006 per old labs Down to 7.2 as of 2009 -- -CHECKING TWICE DAILY Routine gynecological examination 03/09/2008 04/16/2017 DIABETIC FOOT ULCER 03/09/2008 04/16/19 18 Overview: [facility] Acute gastritis 12/16/2007 08/04/2022 Overview: EGD with minimal gastritis, negative H Pylori 12/07 documented as of this encounter (statuses as of 09/30/2022) [facility] History of Past illness Narrative* Problem Noted Date Diagnosed Date Resolved Date Other chronic pain 04/16/2017 9 Other adjustment reaction wi th predominant disturbance of other emotions 05/02/2011 04/20/2020 Eating disorder NEC 05/02/2011 04/20/19 21 Morbid obesity 03/11/2011 12/16/2018 Biliary colic 03/09/2011 04/20/2020 Xerosis of skin 02/13/2011 04/20/2020 Tendonitis 02/26/2010 04/20/2020 ACL tear 11/26/2009 04/20/2020 Knee pain 11/26/2009 04/20/2020 Generalized pain 10/01/2009 02/21/2019 Chronic pain 09/24/2009 02/21/2019 Elbow joint pain 09/24/2009 04/20/2020 Ulcer of heel and midfoot 02/08/2009 Pain in limb 06/29/2008 02/21/2019 Dermatophytosis of nail 06/29/200804/02 Corns and callosities 06/29/20082017 Essential hypertension, benign 03/27/2008 03/16/2015 DM w/o complication type II, uncontrolled 03/09/2008 12/07/2014 Overview: A1c 15.7 as of 2005 per old labs Down to 7.2 as of 2009 -- -CHECKING TWICE DAILY Routine gynecological examination 03/09/2008 04/16/2017 DIABETIC FOOT ULCER 03/09/2008 04/16/19 18 Overview: [facility] Acute gastritis 12/16/2007 08/04/2022 Overview: EGD with minimal gastritis, negative H Pylori 12/07 documented as of this encounter (statuses as of 10/09/2022) [facility] History of Past illness Narrative* Problem Noted Date Diagnosed Date Resolved Date Other chronic pain 04/16/2017 9 Other adjustment reaction wi predominant disturbance of other emotions 05/02/2011 04/20/2020 Eating disorder NEC 05/02/2011 04/20/19 21 Morbid obesity 03/11/2011 12/16/2018 Biliary colic 03/09/2011 04/20/2020 Xerosis of skin 02/13/2011 04/20/2020 Tendonitis 02/26/2010 04/20/2020 ACL tear 11/26/2009 04/20/2020 Knee pain 11/26/2009 04/20/2020 Generalized pain 10/01/2009 02/21/2019 Chronic pain 09/24/2009 02/21/2019 Elbow joint pain 09/24/2009 04/20/2020 Ulcer of heel and midfoot 02/08/2009 Pain in limb 06/29/2008 02/21/2019 Dermatophytosis of nail 06/29/200804/02 Corns and callosities 06/29/20082017 Essential hypertension, benign 03/27/2008 03/16/2015 DM w/o complication type II, uncontrolled 03/09/2008 12/07/2014 Overview: A1c 15.7 as of 2005 per old labs Down to 7.2 as of 2009 -- -CHECKING TWICE DAILY Routine gynecological examination 03/09/2008 04/16/2017 DIABETIC FOOT ULCER 03/09/2008 04/16/19 18 Overview: [facility] Acute gastritis 12/16/2007 08/04/2022 Overview: EGD with minimal gastritis, negative H Pylori 12/07 documented as of this encounter (statuses as of 10/15/2022) [facility] History of Past illness Narrative* Problem Noted Date Diagnosed Date Resolved Date Other chronic pain 04/16/2017 9 Other adjustment reaction wi th predominant disturbance of other emotions 05/02/2011 04/20/2020 Eating disorder NEC 05/02/2011 04/20/19 21 Morbid obesity 03/11/2011 12/16/2018 Biliary colic 03/09/2011 04/20/2020 Xerosis of skin 02/13/2011 04/20/2020 Tendonitis 02/26/2010 04/20/2020 ACL tear 11/26/2009 04/20/2020 Knee pain 11/26/2009 04/20/2020 Generalized pain 10/01/2009 02/21/2019 Chronic pain 09/24/2009 02/21/2019 Elbow joint pain 09/24/2009 04/20/2020 Ulcer of heel and midfoot 02/08/2009 Pain in limb 06/29/2008 02/21/2019 Dermatophytosis of nail 06/29/200804/02 Corns and callosities 06/29/20082017 Essential hypertension, benign 03/27/2008 03/16/2015 DM w/o complication type II, uncontrolled 03/09/2008 12/07/2014 Overview: A1c 15.7 as of 2005 per old labs Down to 7.2 as of 2009 -- -CHECKING TWICE DAILY Routine gynecological examination 03/09/2008 04/16/2017 DIABETIC FOOT ULCER 03/09/2008 04/16/19 18 Overview: Follows with [facility], [facility], Dr. Henderson Acute gastritis 12/16/2007 08/04/2022 Overview: EGD with minimal gastritis, negative H Pylori 12/07 documented as of this encounter (statuses as of 10/15/2022) [facility] History of Past illness Narrative* Problem Noted Date Diagnosed Date Resolved Date Other chronic pain 04/16/2017 9 Other adjustment reaction wi th predominant disturbance of other emotions 05/02/2011 04/20/2020 Eating disorder NEC 05/02/2011 02/19/20 21 Morbid obesity 03/11/2011 12/16/2018 Biliary colic 03/09/2011 04/20/2020 Xerosis of skin 02/13/2011 04/20/2020 Tendonitis 02/26/2010 04/20/2020 ACL tear 11/26/2009 04/20/2020 Knee pain 11/26/2009 04/20/2020 Generalized pain 10/01/2009 02/21/2019 Chronic pain 09/24/2009 02/21/2019 Elbow joint pain 09/24/2009 04/20/2020 Ulcer of heel and midfoot 02/08/2009 Pain in limb 06/29/2008 02/21/2019 Dermatophytosis of nail 06/29/200804/02 Corns and callosities 06/29/20082017 Essential hypertension, benign 03/27/2008 03/16/2015 DM w/o complication type II, uncontrolled 03/09/2008 12/07/2014 Overview: A1c 15.7 as of 2005 per old labs Down to 7.2 as of 2009 -- -CHECKING TWICE DAILY Routine gynecological examination 03/09/2008 04/16/2017 DIABETIC FOOT ULCER 03/09/2008 04/16/19 18 Overview: [facility] Henderson Acute gastritis 12/16/2007 08/04/2022 Overview: EGD with minimal gastritis, negative H Pylori 12/07 documented as of this encounter (statuses as of 10/16/2022) [facility] History of Past illness Narrative* Problem Noted Date Diagnosed Date Resolved Date Other chronic pain 04/16/2017 9 Other adjustment reaction wi th predominant disturbance of other emotions 05/02/2011 04/20/2020 Eating disorder NEC 05/02/2011 04/20/19 21 Morbid obesity 03/11/2011 12/16/2018 Biliary colic 03/09/2011 04/20/2020 Xerosis of skin 02/13/2011 04/20/2020 Tendonitis 02/26/2010 04/20/2020 ACL tear 11/26/2009 04/20/2020 Knee pain 11/26/2009 04/20/2020 Generalized pain 10/01/2009 02/21/2019 Chronic pain 09/24/2009 02/21/2019 Elbow joint pain 09/24/2009 04/20/2020 Ulcer of heel and midfoot 02/08/2009 Pain in limb 06/29/2008 02/21/2019 Dermatophytosis of nail 06/29/200804/02 Corns and callosities 06/29/20082017 Essential hypertension, benign 03/27/2008 03/16/2015 DM w/o complication type II, uncontrolled 03/09/2008 12/07/2014 Overview: A1c 15.7 as of 2005 per old labs Down to 7.2 as of 2009 -- -CHECKING TWICE DAILY Routine gynecological examination 03/09/2008 04/16/2017 DIABETIC FOOT ULCER 03/09/2008 04/16/19 18 Overview: [facility] with [facility], Dr. Santiago Montero Acute gastritis 12/16/2007 08/04/2022 Overview: EGD with minimal gastritis, negative H Pylori 12/07 documented as of this encounter (statuses as of 10/17/2022) [facility] History of Past illness Narrative* Problem Noted Date Diagnosed Date Resolved Date Other chronic pain 04/16/2017 9 Other adjustment reaction wi th predominant disturbance of other emotions 05/02/2011 04/20/2020 Eating disorder NEC 05/02/2011 04/20/19 21 Morbid obesity 03/11/2011 12/16/2018 Biliary colic 03/09/2011 04/20/2020 Xerosis of skin 02/13/2011 04/20/2020 Tendonitis 02/26/2010 04/20/2020 ACL tear 11/26/2009 04/20/2020 Knee pain 11/26/2009 04/20/2020 Generalized pain 10/01/2009 02/21/2019 Chronic pain 09/24/2009 02/21/2019 Elbow joint pain 09/24/2009 04/20/2020 Ulcer of heel and midfoot 02/08/2009 Pain in limb 06/29/2008 02/21/2019 Dermatophytosis of nail 06/29/200804/02 Corns and callosities 06/29/20082017 Essential hypertension, benign 03/27/2008 03/16/2015 DM w/o complication type II, uncontrolled 03/09/2008 12/07/2014 Overview: A1c 15.7 as of 2005 per old labs Down to 7.2 as of 2009 -- -CHECKING TWICE DAILY Routine gynecological examination 03/09/2008 04/16/2017 DIABETIC FOOT ULCER 03/09/2008 04/16/19 18 Overview: [facility]s with [facility], [facility], Dr. Henderson Acute gastritis 12/16/2007 08/04/2022 Overview: EGD with minimal gastritis, negative H Pylori 12/07 documented as of this encounter (statuses as of 10/21/2022) [facility] History of Past illness Narrative* Problem Noted Date Diagnosed Date Resolved Date Other chronic pain 04/16/2017 9 Other adjustment reaction wi th predominant disturbance of other emotions 05/02/2011 04/20/2020 Eating disorder NEC 05/02/2011 04/20/19 21 Morbid obesity 03/11/2011 12/16/2018 Biliary colic 03/09/2011 04/20/2020 Xerosis of skin 02/13/2011 04/20/2020 Tendonitis 02/26/2010 04/20/2020 ACL tear 11/26/2009 04/20/2020 Knee pain 11/26/2009 04/20/2020 Generalized pain 10/01/2009 02/21/2019 Chronic pain 09/24/2009 02/21/2019 Elbow joint pain 09/24/2009 04/20/2020 Ulcer of heel and midfoot 02/08/2009 Pain in limb 06/29/2008 02/21/2019 Dermatophytosis of nail 06/29/200804/02 Corns and callosities 06/29/20082017 Essential hypertension, benign 03/27/2008 03/16/2015 DM w/o complication type II, uncontrolled 03/09/2008 12/07/2014 Overview: A1c 15.7 as of 2005 per old labs Down to 7.2 as of 2009 -- -CHECKING TWICE DAILY Routine gynecological examination 03/09/2008 04/16/2017 DIABETIC FOOT ULCER 03/09/2008 04/16/19 18 Overview: Follows with [facility], [facility], Dr. Henderson Acute gastritis 12/16/2007 08/04/2022 Overview: EGD with minimal gastritis, negative H Pylori 12/07 documented as of this encounter (statuses as of 11/04/2022) [facility] History of Past illness Narrative* Problem Noted Date Diagnosed Date Resolved Date Other chronic pain 04/16/2017 9 Other adjustment reaction wi th predominant disturbance of other emotions 05/02/2011 04/20/2020 Eating disorder NEC 05/02/2011 04/20/19 21 Morbid obesity 03/11/2011 12/16/2018 Biliary colic 03/09/2011 04/20/2020 Xerosis of skin 02/13/2011 04/20/2020 Tendonitis 02/26/2010 04/20/2020 ACL tear 11/26/2009 04/20/2020 Knee pain 11/26/2009 04/20/2020 Generalized pain 10/01/2009 02/21/2019 Chronic pain 09/24/2009 02/21/2019 Elbow joint pain 09/24/2009 04/20/2020 Ulcer of heel and midfoot 02/08/2009 Pain in limb 06/29/2008 02/21/2019 Dermatophytosis of nail 06/29/200804/02 Corns and callosities 06/29/20082017 Essential hypertension, benign 03/27/2008 03/16/2015 DM w/o complication type II, uncontrolled 03/09/2008 12/07/2014 Overview: A1c 15.7 as of 2005 per old labs Down to 7.2 as of 2009 -- -CHECKING TWICE DAILY Routine gynecological examination 03/09/2008 04/16/2017 DIABETIC FOOT ULCER 03/09/2008 04/16/19 18 Overview: [facility]s with [facility], Dr. Santiago Montero Acute gastritis 12/16/2007 08/04/2022 Overview: EGD with minimal gastritis, negative H Pylori 12/07 documented as of this encounter (statuses as of 11/07/2022) [facility] History of Past illness Narrative* Problem Noted Date Diagnosed Date Resolved Date Other chronic pain 04/16/2017 9 Other adjustment reaction wi th predominant disturbance of other emotions 05/02/2011 04/20/2020 Eating disorder NEC 05/02/2011 04/20/19 21 Morbid obesity 03/11/2011 12/16/2018 Biliary colic 03/09/2011 04/20/2020 Xerosis of skin 02/13/2011 04/20/2020 Tendonitis 02/26/2010 04/20/2020 ACL tear 11/26/2009 04/20/2020 Knee pain 11/26/2009 04/20/2020 Generalized pain 10/01/2009 02/21/2019 Chronic pain 09/24/2009 02/21/2019 Elbow joint pain 09/24/2009 04/20/2020 Ulcer of heel and midfoot 02/08/2009 Pain in limb 06/29/2008 02/21/2019 Dermatophytosis of nail 06/29/200804/02 Corns and callosities 06/29/20082017 Essential hypertension, benign 03/27/2008 03/16/2015 DM w/o complication type II, uncontrolled 03/09/2008 12/07/2014 Overview: A1c 15.7 as of 2005 per old labs Down to 7.2 as of 2009 -- -CHECKING TWICE DAILY Routine gynecological examination 03/09/2008 04/16/2017 DIABETIC FOOT ULCER 03/09/2008 04/16/19 18 Overview: [facility] Acute gastritis 12/16/2007 08/04/2022 Overview: EGD with minimal gastritis, negative H Pylori 12/07 documented as of this encounter (statuses as of 11/11/2022) [facility] History of Past illness Narrative* Problem Noted Date Diagnosed Date Resolved Date Other chronic pain 04/16/2017 9 Other adjustment reaction wi th predominant disturbance of other emotions 05/02/2011 04/20/2020 Eating disorder NEC 05/02/2011 04/20/19 21 Morbid obesity 03/11/2011 12/16/2018 Biliary colic 03/09/2011 04/20/2020 Xerosis of skin 02/13/2011 04/20/2020 Tendonitis 02/26/2010 04/20/2020 ACL tear 11/26/2009 04/20/2020 Knee pain 11/26/2009 04/20/2020 Generalized pain 10/01/2009 02/21/2019 Chronic pain 09/24/2009 02/21/2019 Elbow joint pain 09/24/2009 04/20/2020 Ulcer of heel and midfoot 02/08/2009 Pain in limb 06/29/2008 02/21/2019 Dermatophytosis of nail 06/29/200804/02 Corns and callosities 06/29/20082017 Essential hypertension, benign 03/27/2008 03/16/2015 DM w/o complication type II, uncontrolled 03/09/2008 12/07/2014 Overview: A1c 15.7 as of 2005 per old labs Down to 7.2 as of 2009 -- -CHECKING TWICE DAILY Routine gynecological examination 03/09/2008 04/16/2017 DIABETIC FOOT ULCER 03/09/2008 04/16/19 18 Overview: [facility] with [facility], Dr. Santiago Montero Acute gastritis 12/16/2007 08/04/2022 Overview: EGD with minimal gastritis, negative H Pylori 12/07 documented as of this encounter (statuses as of 11/14/2022) [facility] History of Past illness Narrative* Problem Noted Date Diagnosed Date Resolved Date Other chronic pain 04/16/2017 9 Other adjustment reaction wi th predominant disturbance of other emotions 05/02/2011 04/20/2020 Eating disorder NEC 05/02/2011 04/20/19 21 Morbid obesity 03/11/2011 12/16/2018 Biliary colic 03/09/2011 04/20/2020 Xerosis of skin 02/13/2011 04/20/2020 Tendonitis 02/26/2010 04/20/2020 ACL tear 11/26/2009 04/20/2020 Knee pain 11/26/2009 04/20/2020 Generalized pain 10/01/2009 02/21/2019 Chronic pain 09/24/2009 02/21/2019 Elbow joint pain 09/24/2009 04/20/2020 Ulcer of heel and midfoot 02/08/2009 Pain in limb 06/29/2008 02/21/2019 Dermatophytosis of nail 06/29/200804/02 Corns and callosities 06/29/20082017 Essential hypertension, benign 03/27/2008 03/16/2015 DM w/o complication type II, uncontrolled 03/09/2008 12/07/2014 Overview: A1c 15.7 as of 2005 per old labs Down to 7.2 as of 2009 -- -CHECKING TWICE DAILY Routine gynecological examination 03/09/2008 04/16/2017 DIABETIC FOOT ULCER 03/09/2008 04/16/19 18 Overview: [facility]s with [facility], [facility], Dr. Henderson Acute gastritis 12/16/2007 08/04/2022 Overview: EGD with minimal gastritis, negative H Pylori 12/07 documented as of this encounter (statuses as of 11/17/2022) [facility] History of Past illness Narrative* Problem Noted Date Diagnosed Date Resolved Date Other chronic pain 04/16/2017 9 Other adjustment reaction wi th predominant disturbance of other emotions 05/02/2011 04/20/2020 Eating disorder NEC 05/02/2011 04/20/19 21 Morbid obesity 03/11/2011 12/16/2018 Biliary colic 03/09/2011 04/20/2020 Xerosis of skin 02/13/2011 04/20/2020 Tendonitis 02/26/2010 04/20/2020 ACL tear 11/26/2009 04/20/2020 Knee pain 11/26/2009 04/20/2020 Generalized pain 10/01/2009 02/21/2019 Chronic pain 09/24/2009 02/21/2019 Elbow joint pain 09/24/2009 04/20/2020 Ulcer of heel and midfoot 02/08/2009 Pain in limb 06/29/2008 02/21/2019 Dermatophytosis of nail 06/29/200804/02 Corns and callosities 06/29/20082017 Essential hypertension, benign 03/27/2008 03/16/2015 DM w/o complication type II, uncontrolled 03/09/2008 12/07/2014 Overview: A1c 15.7 as of 2005 per old labs Down to 7.2 as of 2009 -- -CHECKING TWICE DAILY Routine gynecological examination 03/09/2008 04/16/2017 DIABETIC FOOT ULCER 03/09/2008 04/16/19 18 Overview: Follows with [facility], [facility], Dr. Henderson Acute gastritis 12/16/2007 08/04/2022 Overview: EGD with minimal gastritis, negative H Pylori 12/07 documented as of this encounter (statuses as of 11/19/2022) [facility] History of Past illness Narrative* Problem Noted Date Diagnosed Date Resolved Date Other chronic pain 04/16/2017 9 Other adjustment reaction wi th predominant disturbance of other emotions 05/02/2011 04/20/2020 Eating disorder NEC 05/02/2011 04/20/19 21 Morbid obesity 03/11/2011 12/16/2018 Biliary colic 03/09/2011 04/20/2020 Xerosis of skin 02/13/2011 04/20/2020 Tendonitis 02/26/2010 04/20/2020 ACL tear 11/26/2009 04/20/2020 Knee pain 11/26/2009 04/20/2020 Generalized pain 10/01/2009 02/21/2019 Chronic pain 09/24/2009 02/21/2019 Elbow joint pain 09/24/2009 04/20/2020 Ulcer of heel and midfoot 02/08/2009 Pain in limb 06/29/2008 02/21/2019 Dermatophytosis of nail 06/29/200804/02 Corns and callosities 06/29/20082017 Essential hypertension, benign 03/27/2008 03/16/2015 DM w/o complication type II, uncontrolled 03/09/2008 12/07/2014 Overview: A1c 15.7 as of 2005 per old labs Down to 7.2 as of 2009 -- -CHECKING TWICE DAILY Routine gynecological examination 03/09/2008 04/16/2017 DIABETIC FOOT ULCER 03/09/2008 04/16/19 18 Overview: [facility]s with [facility], [facility], Dr. Henderson Acute gastritis 12/16/2007 08/04/2022 Overview: EGD with minimal gastritis, negative H Pylori 12/07 documented as of this encounter (statuses as of 11/19/2022) [facility] History of Past illness Narrative* Problem Noted Date Diagnosed Date Resolved Date Other chronic pain 04/16/2017 9 Other adjustment reaction wi th predominant disturbance of other emotions 05/02/2011 04/20/2020 Eating disorder NEC 05/02/2011 04/20/19 21 Morbid obesity 03/11/2011 12/16/2018 Biliary colic 03/09/2011 04/20/2020 Xerosis of skin 02/13/2011 04/20/2020 Tendonitis 02/26/2010 04/20/2020 ACL tear 11/26/2009 04/20/2020 Knee pain 11/26/2009 04/20/2020 Generalized pain 10/01/2009 02/21/2019 Chronic pain 09/24/2009 02/21/2019 Elbow joint pain 09/24/2009 04/20/2020 Ulcer of heel and midfoot 02/08/2009 Pain in limb 06/29/2008 02/21/2019 Dermatophytosis of nail 06/29/200804/02 Corns and callosities 06/29/20082017 Essential hypertension, benign 03/27/2008 03/16/2015 DM w/o complication type II, uncontrolled 03/09/2008 12/07/2014 Overview: A1c 15.7 as of 2005 per old labs Down to 7.2 as of 2009 -- -CHECKING TWICE DAILY Routine gynecological examination 03/09/2008 04/16/2017 DIABETIC FOOT ULCER 03/09/2008 04/16/19 18 Overview: Follows with [facility], [facility], Dr. Henderson Acute gastritis 12/16/2007 08/04/2022 Overview: EGD with minimal gastritis, negative H Pylori 12/07 documented as of this encounter (statuses as of 11/21/2022) [facility] History of Past illness Narrative* Problem Noted Date Diagnosed Date Resolved Date Other chronic pain 04/16/2017 9 Other adjustment reaction [facility] predominant disturbance of other emotions 05/02/2011 04/20/2020 Eating disorder NEC 05/02/2011 04/20/19 21 Morbid obesity 03/11/2011 12/16/2018 Biliary colic 03/09/2011 04/20/2020 Xerosis of skin 02/13/2011 04/20/2020 Tendonitis 02/26/2010 04/20/2020 ACL tear 11/26/2009 04/20/2020 Knee pain 11/26/2009 04/20/2020 Generalized pain 10/01/2009 02/21/2019 Chronic pain 09/24/2009 02/21/2019 Elbow joint pain 09/24/2009 04/20/2020 Ulcer of heel and midfoot 02/08/2009 Pain in limb 06/29/2008 02/21/2019 Dermatophytosis of nail 06/29/200804/02 Corns and callosities 06/29/20082017 Essential hypertension, benign 03/27/2008 03/16/2015 DM w/o complication type II, uncontrolled 03/09/2008 12/07/2014 Overview: A1c 15.7 as of 2006 per old labs Down to 7.2 as of 2009 -- -CHECKING TWICE DAILY Routine gynecological examination 03/09/2008 04/16/2017 DIABETIC FOOT ULCER 03/09/2008 04/16/19 18 Overview: [facility] Acute gastritis 12/16/2007 08/04/2022 Overview: EGD with minimal gastritis, negative H Pylori 12/07 documented as of this encounter (statuses as of 11/24/2022) [facility] History of Past illness Narrative* Problem Noted Date Diagnosed Date Resolved Date Other chronic pain 04/16/2017 9 Other adjustment reaction wi th predominant disturbance of other emotions 05/02/2011 04/20/2020 Eating disorder NEC 05/02/2011 04/20/19 21 Morbid obesity 03/11/2011 12/16/2018 Biliary colic 03/09/2011 04/20/2020 Xerosis of skin 02/13/2011 04/20/2020 Tendonitis 02/26/2010 04/20/2020 ACL tear 11/26/2009 04/20/2020 Knee pain 11/26/2009 04/20/2020 Generalized pain 10/01/2009 02/21/2019 Chronic pain 09/24/2009 02/21/2019 Elbow joint pain 09/24/2009 04/20/2020 Ulcer of heel and midfoot 02/08/2009 Pain in limb 06/29/2008 02/21/2019 Dermatophytosis of nail 06/29/200804/02 Corns and callosities 06/29/20082017 Essential hypertension, benign 03/27/2008 03/16/2015 DM w/o complication type II, uncontrolled 03/09/2008 12/07/2014 Overview: A1c 15.7 as of 2005 per old labs Down to 7.2 as of 2009 -- -CHECKING TWICE DAILY Routine gynecological examination 03/09/2008 04/16/2017 DIABETIC FOOT ULCER 03/09/2008 04/16/19 18 Overview: [facility] Acute gastritis 12/16/2007 08/04/2022 Overview: EGD with minimal gastritis, negative H Pylori 12/07 documented as of this encounter (statuses as of 11/25/2022) [facility] History of Past illness Narrative* Problem Noted Date Diagnosed Date Resolved Date Other chronic pain 04/16/2017 9 Other adjustment reaction wi th predominant disturbance of other emotions 05/02/2011 04/20/2020 Eating disorder NEC 05/02/2011 04/20/19 21 Morbid obesity 03/11/2011 12/16/2018 Biliary colic 03/09/2011 04/20/2020 Xerosis of skin 02/13/2011 04/20/2020 Tendonitis 02/26/2010 04/20/2020 ACL tear 11/26/2009 04/20/2020 Knee pain 11/26/2009 04/20/2020 Generalized pain 10/01/2009 02/21/2019 Chronic pain 09/24/2009 02/21/2019 Elbow joint pain 09/24/2009 04/20/2020 Ulcer of heel and midfoot 02/08/2009 Pain in limb 06/29/2008 02/21/2019 Dermatophytosis of nail 06/29/200804/02 Corns and callosities 06/29/20082017 Essential hypertension, benign 03/27/2008 03/16/2015 DM w/o complication type II, uncontrolled 03/09/2008 12/07/2014 Overview: A1c 15.7 as of 2005 per old labs Down to 7.2 as of 2009 -- -CHECKING TWICE DAILY Routine gynecological examination 03/09/2008 04/16/2017 DIABETIC FOOT ULCER 03/09/2008 04/16/19 18 Overview: [facility], Dr. Santiago Montero Acute gastritis 12/16/2007 08/04/2022 Overview: EGD with minimal gastritis, negative H Pylori 12/07 documented as of this encounter (statuses as of 11/28/2022) [facility] History of Past illness Narrative* Problem Noted Date Diagnosed Date Resolved Date Other chronic pain 04/16/2017 9 Other adjustment reaction wi th predominant disturbance of other emotions 05/02/2011 04/20/2020 Eating disorder NEC 05/02/2011 04/20/19 21 Morbid obesity 03/11/2011 12/16/2018 Biliary colic 03/09/2011 04/20/2020 Xerosis of skin 02/13/2011 04/20/2020 Tendonitis 02/26/2010 04/20/2020 ACL tear 11/26/2009 04/20/2020 Knee pain 11/26/2009 04/20/2020 Generalized pain 10/01/2009 02/21/2019 Chronic pain 09/24/2009 02/21/2019 Elbow joint pain 09/24/2009 04/20/2020 Ulcer of heel and midfoot 02/08/2009 Pain in limb 06/29/2008 02/21/2019 Dermatophytosis of nail 06/29/200804/02 Corns and callosities 06/29/20082017 Essential hypertension, benign 03/27/2008 03/16/2015 DM w/o complication type II, uncontrolled 03/09/2008 12/07/2014 Overview: A1c 15.7 as of 2005 per old labs Down to 7.2 as of 2009 -- -CHECKING TWICE DAILY Routine gynecological examination 03/09/2008 04/16/2017 DIABETIC FOOT ULCER 03/09/2008 04/16/19 18 Overview: [facility] with [facility], Dr. Santiago Montero Acute gastritis 12/16/2007 08/04/2022 Overview: EGD with minimal gastritis, negative H Pylori 12/07 documented as of this encounter (statuses as of 11/28/2022) [facility] History of Past illness Narrative* Problem Noted Date Diagnosed Date Resolved Date Other chronic pain 04/16/2017 9 Other adjustment reaction wi th predominant disturbance of other emotions 05/02/2011 04/20/2020 Eating disorder NEC 05/02/2011 04/20/19 21 Morbid obesity 03/11/2011 12/16/2018 Biliary colic 03/09/2011 04/20/2020 Xerosis of skin 02/13/2011 04/20/2020 Tendonitis 02/26/2010 04/20/2020 ACL tear 11/26/2009 04/20/2020 Knee pain 11/26/2009 04/20/2020 Generalized pain 10/01/2009 02/21/2019 Chronic pain 09/24/2009 02/21/2019 Elbow joint pain 09/24/2009 04/20/2020 Ulcer of heel and midfoot 02/08/2009 Pain in limb 06/29/2008 02/21/2019 Dermatophytosis of nail 06/29/200804/02 Corns and callosities 06/29/20082017 Essential hypertension, benign 03/27/2008 03/16/2015 DM w/o complication type II, uncontrolled 03/09/2008 12/07/2014 Overview: A1c 15.7 as of 2005 per old labs Down to 7.2 as of 2009 -- -CHECKING TWICE DAILY Routine gynecological examination 03/09/2008 04/16/2017 DIABETIC FOOT ULCER 03/09/2008 04/16/19 18 Overview: Follows with [facility], Dr. Santiago Montero Acute gastritis 12/16/2007 08/04/2022 Overview: EGD with minimal gastritis, negative H Pylori 12/07 documented as of this encounter (statuses as of 12/10/2022) [facility] History of Past illness Narrative* Problem Noted Date Diagnosed Date Resolved Date Other chronic pain 04/16/2017 9 Other adjustment reaction wi th predominant disturbance of other emotions 05/02/2011 04/20/2020 Eating disorder NEC 05/02/2011 04/20/19 21 Morbid obesity 03/11/2011 12/16/2018 Biliary colic 03/09/2011 04/20/2020 Xerosis of skin 02/13/2011 04/20/2020 Tendonitis 02/26/2010 04/20/2020 ACL tear 11/26/2009 04/20/2020 Knee pain 11/26/2009 04/20/2020 Generalized pain 10/01/2009 02/21/2019 Chronic pain 09/24/2009 02/21/2019 Elbow joint pain 09/24/2009 04/20/2020 Ulcer of heel and midfoot 02/08/2009 Pain in limb 06/29/2008 02/21/2019 Dermatophytosis of nail 06/29/200804/02 Corns and callosities 06/29/20082017 Essential hypertension, benign 03/27/2008 03/16/2015 DM w/o complication type II, uncontrolled 03/09/2008 12/07/2014 Overview: A1c 15.7 as of 2005 per old labs Down to 7.2 as of 2009 -- -CHECKING TWICE DAILY Routine gynecological examination 03/09/2008 04/16/2017 DIABETIC FOOT ULCER 03/09/2008 04/16/19 18 Overview: Follows with [facility], Dr. Santiago Montero Acute gastritis 12/16/2007 08/04/2022 Overview: EGD with minimal gastritis, negative H Pylori 12/07 documented as of this encounter (statuses as of 12/12/2022) [facility] History of Past illness Narrative* Problem Noted Date Diagnosed Date Resolved Date Other chronic pain 04/16/2017 9 Other adjustment reaction wi th predominant disturbance of other emotions 05/02/2011 04/20/2020 Eating disorder NEC 05/02/2011 04/20/19 21 Morbid obesity 03/11/2011 12/16/2018 Biliary colic 03/09/2011 04/20/2020 Xerosis of skin 02/13/2011 04/20/2020 Tendonitis 02/26/2010 04/20/2020 ACL tear 11/26/2009 04/20/2020 Knee pain 11/26/2009 04/20/2020 Generalized pain 10/01/2009 02/21/2019 Chronic pain 09/24/2009 02/21/2019 Elbow joint pain 09/24/2009 04/20/2020 Ulcer of heel and midfoot 02/08/2009 Pain in limb 06/29/2008 02/21/2019 Dermatophytosis of nail 06/29/200804/02 Corns and callosities 06/29/20082017 Essential hypertension, benign 03/27/2008 03/16/2015 DM w/o complication type II, uncontrolled 03/09/2008 12/07/2014 Overview: A1c 15.7 as of 2005 per old labs Down to 7.2 as of 2009 -- -CHECKING TWICE DAILY Routine gynecological examination 03/09/2008 04/16/2017 DIABETIC FOOT ULCER 03/09/2008 04/16/19 18 Overview: [facility]s [facility], Dr. Henderson Acute gastritis 12/16/2007 08/04/2022 Overview: EGD with minimal gastritis, negative H Pylori 12/07 documented as of this encounter (statuses as of 01/04/2023) [facility] History of Past illness Narrative* Problem Noted Date Diagnosed Date Resolved Date Other chronic pain 04/16/2017 9 Other adjustment reaction wi th predominant disturbance of other emotions 05/02/2011 04/20/2020 Eating disorder NEC 05/02/2011 04/20/19 21 Morbid obesity 03/11/2011 12/16/2018 Biliary colic 03/09/2011 04/20/2020 Xerosis of skin 02/13/2011 04/20/2020 Tendonitis 02/26/2010 04/20/2020 ACL tear 11/26/2009 04/20/2020 Knee pain 11/26/2009 04/20/2020 Generalized pain 10/01/2009 02/21/2019 Chronic pain 09/24/2009 02/21/2019 Elbow joint pain 09/24/2009 04/20/2020 Ulcer of heel and midfoot 02/08/2009 Pain in limb 06/29/2008 02/21/2019 Dermatophytosis of nail 06/29/200804/02 Corns and callosities 06/29/20082017 Essential hypertension, benign 03/27/2008 03/16/2015 DM w/o complication type II, uncontrolled 03/09/2008 12/07/2014 Overview: A1c 15.7 as of 2005 per old labs Down to 7.2 as of 2009 -- -CHECKING TWICE DAILY Routine gynecological examination 03/09/2008 04/16/2017 DIABETIC FOOT ULCER 03/09/2008 04/16/19 18 Overview: Follows with [facility], Dr. Santiago Montero Acute gastritis 12/16/2007 08/04/2022 Overview: EGD with minimal gastritis, negative H Pylori 12/07 documented as of this encounter (statuses as of 01/04/2023) [facility] History of Past illness Narrative* Problem Noted Date Diagnosed Date Resolved Date Other chronic pain 04/16/2017 9 Other adjustment reaction wi th predominant disturbance of other emotions 05/02/2011 04/20/2020 Eating disorder NEC 05/02/2011 04/20/19 21 Morbid obesity 03/11/2011 12/16/2018 Biliary colic 03/09/2011 04/20/2020 Xerosis of skin 02/13/2011 04/20/2020 Tendonitis 02/26/2010 04/20/2020 ACL tear 11/26/2009 04/20/2020 Knee pain 11/26/2009 04/20/2020 Generalized pain 10/01/2009 02/21/2019 Chronic pain 09/24/2009 02/21/2019 Elbow joint pain 09/24/2009 04/20/2020 Ulcer of heel and midfoot 02/08/2009 Pain in limb 06/29/2008 02/21/2019 Dermatophytosis of nail 06/29/200804/02 Corns and callosities 06/29/20082017 Essential hypertension, benign 03/27/2008 03/16/2015 DM w/o complication type II, uncontrolled 03/09/2008 12/07/2014 Overview: A1c 15.7 as of 2005 per old labs Down to 7.2 as of 2009 -- -CHECKING TWICE DAILY Routine gynecological examination 03/09/2008 04/16/2017 DIABETIC FOOT ULCER 03/09/2008 04/16/19 18 Overview: Follows with [facility], Dr. Santiago Montero Acute gastritis 12/16/2007 08/04/2022 Overview: EGD with minimal gastritis, negative H Pylori 12/07 documented as of this encounter (statuses as of 01/04/2023) [facility] History of Past illness Narrative* Problem Noted Date Diagnosed Date Resolved Date Other chronic pain 04/16/2017 9 Other adjustment reaction wi th predominant disturbance of other emotions 05/02/2011 04/20/2020 Eating disorder NEC 05/02/2011 04/20/19 21 Morbid obesity 03/11/2011 12/16/2018 Biliary colic 03/09/2011 04/20/2020 Xerosis of skin 02/13/2011 04/20/2020 Tendonitis 02/26/2010 04/20/2020 ACL tear 11/26/2009 04/20/2020 Knee pain 11/26/2009 04/20/2020 Generalized pain 10/01/2009 02/21/2019 Chronic pain 09/24/2009 02/21/2019 Elbow joint pain 09/24/2009 04/20/2020 Ulcer of heel and midfoot 02/08/2009 Pain in limb 06/29/2008 02/21/2019 Dermatophytosis of nail 06/29/200804/02 Corns and callosities 06/29/20082017 Essential hypertension, benign 03/27/2008 03/16/2015 DM w/o complication type II, uncontrolled 03/09/2008 12/07/2014 Overview: A1c 15.7 as of 2005 per old labs Down to 7.2 as of 2009 -- -CHECKING TWICE DAILY Routine gynecological examination 03/09/2008 04/16/2017 DIABETIC FOOT ULCER 03/09/2008 04/16/19 18 Overview: [facility] Acute gastritis 12/16/2007 08/04/2022 Overview: EGD with minimal gastritis, negative H Pylori 12/07 documented as of this encounter (statuses as of 01/04/2023) [facility] History of Past illness Narrative* Problem Noted Date Diagnosed Date Resolved Date Other chronic pain 04/16/2017 9 Other adjustment reaction wi th predominant disturbance of other emotions 05/02/2011 04/20/2020 Eating disorder NEC 05/02/2011 04/20/19 21 Morbid obesity 03/11/2011 12/16/2018 Biliary colic 03/09/2011 04/20/2020 Xerosis of skin 02/13/2011 04/20/2020 Tendonitis 02/26/2010 04/20/2020 ACL tear 11/26/2009 04/20/2020 Knee pain 11/26/2009 04/20/2020 Generalized pain 10/01/2009 02/21/2019 Chronic pain 09/24/2009 02/21/2019 Elbow joint pain 09/24/2009 04/20/2020 Ulcer of heel and midfoot 02/08/2009 Pain in limb 06/29/2008 02/21/2019 Dermatophytosis of nail 06/29/200804/02 Corns and callosities 06/29/20082017 Essential hypertension, benign 03/27/2008 03/16/2015 DM w/o complication type II, uncontrolled 03/09/2008 12/07/2014 Overview: A1c 15.7 as of 2005 per old labs Down to 7.2 as of 2009 -- -CHECKING TWICE DAILY Routine gynecological examination 03/09/2008 04/16/2017 DIABETIC FOOT ULCER 03/09/2008 04/16/19 18 Overview: [facility]s with [facility], [facility], Dr. Henderson Acute gastritis 12/16/2007 08/04/2022 Overview: EGD with minimal gastritis, negative H Pylori 12/07 documented as of this encounter (statuses as of 01/04/2023) [facility] History of Past illness Narrative* Problem Noted Date Diagnosed Date Resolved Date Other chronic pain 04/16/2017 9 Other adjustment reaction wi th predominant disturbance of other emotions 05/02/2011 04/20/2020 Eating disorder NEC 05/02/2011 04/20/19 21 Morbid obesity 03/11/2011 12/16/2018 Biliary colic 03/09/2011 04/20/2020 Xerosis of skin 02/13/2011 04/20/2020 Tendonitis 02/26/2010 04/20/2020 ACL tear 11/26/2009 04/20/2020 Knee pain 11/26/2009 04/20/2020 Generalized pain 10/01/2009 02/21/2019 Chronic pain 09/24/2009 02/21/2019 Elbow joint pain 09/24/2009 04/20/2020 Ulcer of heel and midfoot 02/08/2009 Pain in limb 06/29/2008 02/21/2019 Dermatophytosis of nail 06/29/200804/02 Corns and callosities 06/29/20082017 Essential hypertension, benign 03/27/2008 03/16/2015 DM w/o complication type II, uncontrolled 03/09/2008 12/07/2014 Overview: A1c 15.7 as of 2005 per old labs Down to 7.2 as of 2009 -- -CHECKING TWICE DAILY Routine gynecological examination 03/09/2008 04/16/2017 DIABETIC FOOT ULCER 03/09/2008 04/16/19 18 Overview: Follows with [facility], [facility], Dr. Henderson Acute gastritis 12/16/2007 08/04/2022 Overview: EGD with minimal gastritis, negative H Pylori 12/07 documented as of this encounter (statuses as of 01/07/2023) [facility] History of Past illness Narrative* Problem Noted Date Diagnosed Date Resolved Date Other chronic pain 04/16/2017 9 Other adjustment reaction wi th predominant disturbance of other emotions 05/02/2011 04/20/2020 Eating disorder NEC 05/02/2011 04/20/19 21 Morbid obesity 03/11/2011 12/16/2018 Biliary colic 03/09/2011 04/20/2020 Xerosis of skin 02/13/2011 04/20/2020 Tendonitis 02/26/2010 04/20/2020 ACL tear 11/26/2009 04/20/2020 Knee pain 11/26/2009 04/20/2020 Generalized pain 10/01/2009 02/21/2019 Chronic pain 09/24/2009 02/21/2019 Elbow joint pain 09/24/2009 04/20/2020 Ulcer of heel and midfoot 02/08/2009 Pain in limb 06/29/2008 02/21/2019 Dermatophytosis of nail 06/29/200804/02 Corns and callosities 06/29/20082017 Essential hypertension, benign 03/27/2008 03/16/2015 DM w/o complication type II, uncontrolled 03/09/2008 12/07/2014 Overview: A1c 15.7 as of 2005 per old labs Down to 7.2 as of 2009 -- -CHECKING TWICE DAILY Routine gynecological examination 03/09/2008 04/16/2017 DIABETIC FOOT ULCER 03/09/2008 04/16/19 18 Overview: Follows with [facility], [facility], Dr. Henderson Acute gastritis 12/16/2007 08/04/2022 Overview: EGD with minimal gastritis, negative H Pylori 12/07 documented as of this encounter (statuses as of 01/15/2023) [facility] History of Past illness Narrative* Problem Noted Date Diagnosed Date Resolved Date Other chronic pain 04/16/2017 9 Other adjustment reaction wi th predominant disturbance of other emotions 05/02/2011 04/20/2020 Eating disorder NEC 05/02/2011 04/20/19 21 Morbid obesity 03/11/2011 12/16/2018 Biliary colic 03/09/2011 04/20/2020 Xerosis of skin 02/13/2011 04/20/2020 Tendonitis 02/26/2010 04/20/2020 ACL tear 11/26/2009 04/20/2020 Knee pain 11/26/2009 04/20/2020 Generalized pain 10/01/2009 02/21/2019 Chronic pain 09/24/2009 02/21/2019 Elbow joint pain 09/24/2009 04/20/2020 Ulcer of heel and midfoot 02/08/2009 Pain in limb 06/29/2008 02/21/2019 Dermatophytosis of nail 06/29/200804/02 Corns and callosities 06/29/20082017 Essential hypertension, benign 03/27/2008 03/16/2015 DM w/o complication type II, uncontrolled 03/09/2008 12/07/2014 Overview: A1c 15.7 as of 2005 per old labs Down to 7.2 as of 2009 -- -CHECKING TWICE DAILY Routine gynecological examination 03/09/2008 04/16/2017 DIABETIC FOOT ULCER 03/09/2008 04/16/19 18 Overview: Follows with [facility], [facility], Dr. Henderson Acute gastritis 12/16/2007 08/04/2022 Overview: EGD with minimal gastritis, negative H Pylori 12/07 documented as of this encounter (statuses as of 01/20/2023) [facility] History of Past illness Narrative* Problem Noted Date Diagnosed Date Resolved Date Other chronic pain 04/16/2017 9 Other adjustment reaction wi th predominant disturbance of other emotions 05/02/2011 04/20/2020 Eating disorder NEC 05/02/2011 04/20/19 21 Morbid obesity 03/11/2011 12/16/2018 Biliary colic 03/09/2011 04/20/2020 Xerosis of skin 02/13/2011 04/20/2020 Tendonitis 02/26/2010 04/20/2020 ACL tear 11/26/2009 04/20/2020 Knee pain 11/26/2009 04/20/2020 Generalized pain 10/01/2009 02/21/2019 Chronic pain 09/24/2009 02/21/2019 Elbow joint pain 09/24/2009 04/20/2020 Ulcer of heel and midfoot 02/08/2009 Pain in limb 06/29/2008 02/21/2019 Dermatophytosis of nail 06/29/200804/02 Corns and callosities 06/29/20082017 Essential hypertension, benign 03/27/2008 03/16/2015 DM w/o complication type II, uncontrolled 03/09/2008 12/07/2014 Overview: A1c 15.7 as of 2005 per old labs Down to 7.2 as of 2009 -- -CHECKING TWICE DAILY Routine gynecological examination 03/09/2008 04/16/2017 DIABETIC FOOT ULCER 03/09/2008 04/16/19 18 Overview: Follows with [facility], [facility], Dr. Henderson Acute gastritis 12/16/2007 08/04/2022 Overview: EGD with minimal gastritis, negative H Pylori 12/07 documented as of this encounter (statuses as of 01/27/2023) [facility] History of Past illness Narrative* Problem Noted Date Diagnosed Date Resolved Date Other chronic pain 04/16/2017 9 Other adjustment reaction [facility] predominant disturbance of other emotions 05/02/2011 04/20/2020 Eating disorder NEC 05/02/2011 04/20/19 21 Morbid obesity 03/11/2011 12/16/2018 Biliary colic 03/09/2011 04/20/2020 Xerosis of skin 02/13/2011 04/20/2020 Tendonitis 02/26/2010 04/20/2020 ACL tear 11/26/2009 04/20/2020 Knee pain 11/26/2009 04/20/2020 Generalized pain 10/01/2009 02/21/2019 Chronic pain 09/24/2009 02/21/2019 Elbow joint pain 09/24/2009 04/20/2020 Ulcer of heel and midfoot 02/08/2009 Pain in limb 06/29/2008 02/21/2019 Dermatophytosis of nail 06/29/200804/02 Corns and callosities 06/29/20082017 Essential hypertension, benign 03/27/2008 03/16/2015 DM w/o complication type II, uncontrolled 03/09/2008 12/07/2014 Overview: A1c 15.7 as of 2005 per old labs Down to 7.2 as of 2009 -- -CHECKING TWICE DAILY Routine gynecological examination 03/09/2008 04/16/2017 DIABETIC FOOT ULCER 03/09/2008 04/16/19 18 Overview: Follows with [facility], [facility], Dr. Henderson Acute gastritis 12/16/2007 08/04/2022 Overview: EGD with minimal gastritis, negative H Pylori 12/07 documented as of this encounter (statuses as of 01/28/2023) [facility] note Author Karla Terry [facility] January 29, 2023 12:14pm Note Date/Time January 29, 2023 12:15pm [facility] Medical Records Department [address] [place] [address] Counseling Note - Pharmacy 01/29/23 1214 MR#: [id number] Acct: [id number] Name: Margareth GONZALEZ Rep #:[id number] : 1965 57 From: Karla Terry PCP: Dr. Ignacio Cheatham MD Status:ADM I N Y Location: [place] [address] Pharmacy [place] Med Reconciliation Pharmacy Service has performed discharge medication reconciliation for this patient upon transfer to SNF. The patient's discharge medication list was reviewed for discrepancies and discrepancies were resolved. Medications at Discharge Home Medications cholecalciferol (vitamin D3) 25 mcg (1,000 unit) capsule (Vitamin D3) 5,000 unitPO DAILY 10/03/13 omeprazole 20 mg capsule,delayed release 20 mg PO DAILY 08/23/14 glipizide 5 mg tablet 10 mg PO DAILY 04/28/15 labetalol 200 mg tablet 100 mg PO BID 04/28/15 aspirin 81 mg tablet,delayed release (Aspir-Low) 81 mg PO DAILY 05/27/16 melatonin 5 mg capsule 5 mg PO QHS 05/27/16 ferrous sulfate 325 mg (65 mg iron) tablet (Iron (ferrous sulfate)) 325 mg PO DAILY 11/25/16 amitriptyline 100 mg tablet 100 mg PO QHS sleep 09/10/22 atorvastatin 40 mg tablet 40 mg PO QHS hyperlipidemia 09/10/22 calcitriol 0.25 mcg capsule 0.25 mcg PO BID 09/10/22 dulaglutide 1.5 mg/0.5 mL subcutaneous pen injector (Trulicity) 1.5 mg subcut QWEEK diabetes 09/10/22 hydroxyzine HCl 50 mg tablet 50 mg PO Q6H PRN itching 09/10/22 sertraline 50 mg tablet 50 mg PO QHS bipolar 09/10/22 sodium bicarbonate 650 mg tablet 650 mg PO QHS 09/10/22 acetaminophen 325 mg tablet 650 mg (2 x 325 mg) PO Q4H PRN PRN Fever, pain - 12/09 #0 tabs 09/11/22 docusate sodium 100 mg capsule (DOK) 100 mg PO DAILY #20 CAPSULES 01/15/23 apixaban 2.5 mg tablet (Eliquis) 2.5 mg PO BID #56 tabs 01/29/23 oxycodone 5 mg tablet 5 mg PO Q6H PRN pain 3 days #12 tabs 01/29/23 01/29/23 1214 <Electronically signed by Karla Terry > Date _ Karla Terry Cosigner Signature (if applicable): Date CC: ~ Signed [facility] Work Phone: Discharge summary Author Johnathon Robertson [facility] March 09, 2023 10:51am Note Date/Time March 09, 2023 9: 58am [facility] Medical Records Department [address] [place] [address] Emergency Department Summary 03/09/23 MR#: [id number] Acct: [id number] Name: Margareth GONZALEZ Rep #:[id number] : 1965 57 From: Johnathon oRbertson MD PCP: Dr. Ignacio Cheatham MD Status:REG E R Location: ED HPI HPI - Fall History of Present Illness Chief Complaint: Fall Detail of Chief Complaint: Falls times 2 today at home with right knee and lowerleg pain. Informant: patient Occured/Mechanism Occurred: Today Mechanism/Context: Yes same level fall Pain/Injury Pain Location: lower extremity Quality of Pain: Dull and Aching Current Severity: Mild Associated Symptoms Associated Symptoms: Negative for Parasthesias, Weakness, Loss of function, Inability to ambulate, Loss of consciousness or Amnesia Narrative Narrative: 57-year-old female extensive past medical history of end-stage renal disease dialysis, COPD, diabetes and hypertension. Had falls in December and needed at tibia stephen placed on the right. She was discharged from the hospital in to extended-care facility and recently has been back home. Today she fell x 2 at home injuring her right lower leg again. Denies hitting her head. No LOC. No blood thinners besides aspirin. Denies recent illness. Prior similar symptoms: Yes Recent [facility] Medical History Anemia Anxiety and depression Asthma Benign essential hypertension Bipolar disorder Chronic anemia COPD with asthma Diabetes Diabetes mellitus, type 2 Dialysis patient DVT (deep venous thrombosis) ESRD (end stage renal disease) on dialysis Fibromyalgia Former smoker Former tobacco use Fracture of fibula, right, closed Fracture of right lower extremity GERD (gastroesophageal reflux disease) History of asthma History of bipolar disorder History of COPD History of diabetes mellitus, type II History of tobacco use HLD (hyperlipidemia) HTN (hypertension) Hyperkalemia Inability to walk Kidney disease Kidney disease, chronic, stage IV (GFR 15-29 ml/min) Neuropathy Obesity Osteoarthritis of right knee Pathological fracture, right tibia, initial encounter for fracture Sleep apnea Home Medications cholecalciferol (vitamin D3) 25 mcg (1,000 unit) capsule (Vitamin D3) 5,000 unitPO DAILY SUPPLEMENT 10/03/13 [History Last Taken 01/18/23] omeprazole 20 mg capsule,delayed release 20 mg PO DAILY 08/23/14 [History Last Taken 01/18/23] glipizide 5 mg tablet 10 mg PO DAILY DIABETES 04/28/15 [History Last Taken 01/18/23] melatonin 5 mg capsule 5 mg PO QHS 05/27/16 [History Last Taken 01/18/23] ferrous sulfate 325 mg (65 mg iron) tablet (Iron (ferrous sulfate)) 325 mg PO DAILY SUPPLEMENT 09/26/17 [History Last Taken 01/18/23] amitriptyline 100 mg tablet 100 mg PO QHS DEPRESSION 09/10/22 [History Last Taken 01/18/23] atorvastatin 40 mg tablet 40 mg PO QHS CHOLESTEROL 09/10/22 [History Last Taken 01/18/23] calcitriol 0.25 mcg capsule 0.25 mcg PO BID 09/10/22 [History Last Taken 01/18/23] dulaglutide 1.5 mg/0.5 mL subcutaneous pen injector (Trulicity) 1.5 mg subcut SUDIABETES 09/10/22 [History Last Taken 01/18/23] sodium bicarbonate 650 mg tablet 650 mg PO QHS 09/10/22 [History Last Taken 01/18/23] docusate sodium 100 mg capsule (DOK) 100 mg PO DAILY STOOL SOFTENER #20 [id number]/16/23 [Rx Last Taken Unknown] apixaban 2.5 mg tablet (Eliquis) 2.5 mg PO BID BLOOD THINNER #56 tabs 01/29/23 [Rx Last Taken Unknown] labetalol 100 mg tablet 100 mg PO BID blood pressure 02/04/23 [History Last Taken Unknown] sevelamer carbonate 800 mg tablet 1,600 mg PO TID 02/04/23 [History Last Taken Unknown] oxycodone 5 mg tablet 5 mg PO Q6H PRN pain 5 days #10 tabs 03/05/23 [Rx Last Taken Unknown] Allergy/AdvReac Type Severity Reaction Status Date / Time julian garcia Allergy Unknown UNKNOWN Verified 03/09/23 09:33 mold Allergy Unknown unknown Verified 03/09/23 09:33 lisinopril Allergy unknown Verified 03/09/23 09:33 Penicillins Allergy Anaphylaxis Verified 03/09/23 09:33 tetracycline [Tetracycline] Allergy Anaphylaxis Verified 03/09/23 09:33 codeine AdvReac Abd Verified 03/09/23 09:33 cramps/diarrhea diphenhydramine HCl AdvReac Upset Verified 03/09/23 09:33 [From Benadryl] Stomach hydrocodone bitartrate AdvReac Abd Verified 03/09/23 09:33 [From Vicodin] cramps/diarrhea NSAIDS (Non-Steroidal AdvReac Unknown Verified 03/09/23 09:33 Anti-Inflamma Family History Mother Heart disease Hypertension Diabetes Kidney disease Father Diabetes Surgical History H/O gastric bypass H/O vascular surgery History of appendectomy History of cholecystectomy S/P appendectomy S/P cholecystectomy Social History household members: none Smoking Status: Former smoker how long ago did patient quit smoking: Quit age 24. alcohol intake: never substance use type: does not use ROS ROS ED ROS Narrative Denies recent illness. Review of Systems ROS Unobtainable: Denies due to encephalopathy Constitutional Constitutional ED: Denies chills or fever(s) Eyes Eyes: Denies blurry vision ENT ENT ED: Denies ear pain Respiratory/Chest Respiratory/Chest: Denies cough or dyspnea Gastrointestinal Gastrointestinal: Denies abdominal pain Genitourinary Genitourinary ED: Denies dysuria or hematuria Musculoskeletal Musculoskeletal: Denies arthralgias Integumentary Denies abscess Neurologic Neurologic: Denies headache(s) Psychiatric Psychiatric: Denies anxiety or depression Endocrine Endocrinology: Denies polydipsia Hematologic/Lymphatic Hematologic/Lymphatic: Denies easy bleeding or easy bruising Allergic/Immunologic Allergic/Immunologic ED: Denies mouth swelling, tongue swelling or urticaria EXAM Physical Exam Narrative Exam Narrative: Well-appearing 57-year-old female. Vital signs are stable afebrile. Pulse ox 100% on room air no signs hypoxia. No distress. Sitting upright in bed. H EENT exam unremarkable. Atraumatic. Pupils round reactive to light. No signs of trauma to her face or scalp. Nontender. Neck nontender trachea midline. Lungs clear to auscultation. Heart regular rhythm rate about 100 no murmur. Chest wall and ribs nontender. Abdomen soft nontender. Pelvic girdle intact. Back nontender no bruising. Ribs nontender. There is no shortening or rotationeither hip. She can flex and extend both knees. She has had prior surgeries onboth knees well-healed incisions. She has tenderness to the right knee, tib-fibankle and foot. She is able to do dorsi and plantarflexion. There is mild swelling. Left lower extremity is nontender there is a small bruise at the proximal tibia medially. But no deformity. No significant tenderness. Neurologically she is awake and alert with no focal motor deficits. Answering questions and following commands. Const Vital Signs: 03/09/23 09:34 03/09/23 09:37 Temperature 97.9 F Temperature Source Oral Pulse Rate 102 H Respiratory Rate 20 H Respiratory Effort Normal Non-Labored Respiratory Depth Normal Respiratory Pattern Normal Blood Pressure 172/78 H Blood Pressure Mean 109 Pulse Ox 100 100 Oxygen Delivery Method Room Air Room Air Positive well nourished and well developed; Negative for cachectic, contracturesor unkempt General Appearance ED: well developed and NAD; Negative for unkempt, cachectic or contractures Nutritional Appearance: Negative for cachectic HEENT Reports normocephalic atraumatic; Negative for trauma, contusion, hematoma or tenderness Eyes PERRL and EOMs intact bilaterally General Eye ED: Negative for pale conjunctiva or scleral icterus Neck full ROM, no lymphadenopathy and supple General: Negative for tenderness Chest Wall inspection of chest normal and palpation of chest normal Chest: Negative for other Resp normal respiratory effort, no retractions and clear to auscultation bilaterally Effort and Inspection: Negative for pain with movement Auscultation: Negative for rales, rhonchi or wheezes Cardio regular rate, regular rhythm, S1 normal heart sound, S2 normal heart sound and no murmurs Rate: Negative for bradycardia or tachycardic Rhythm: Negative for abnormal rhythm Bruits: Negative for other GI non-tender, non-distended and no masses Inspection: Negative for abdominal distention Auscultation: normoactive bowel sounds Palpation: soft; Negative for guarding Back/Spine no CVA tenderness General Back: Negative for CVA tenderness Cervical Spine: Negative for cervical spine tenderness Thoracic Spine / Upper Back: Negative for ROM limited or pain with ROM Lumbar Spine / Lower Back: Negative for lumbar spinal tenderness or paraspinal muscle tenderness Neuro oriented x3, CN's II-XII intact bilaterally, moves all extremities and no focal motor deficits Jacklyn Coma Scale: document GCS findings Spontaneous Obeys Commands Oriented 15 Sensorium / Orientation: alert, oriented to person, oriented to place and oriented to time; Negative for orientation impaired, confused, lethargic or stuporous Motor Exam: strength 5/5 throughout Psych mental status grossly normal and thought process normal Appearance: Negative for unkempt Attitude: No agitated Mood & Affect: Negative for depressed, anxious or tearful Skin General Skin Exam: Negative for other Lesions: no lesions Rashes: no rashes Trauma: Negative for abrasion MDM MDM MDM Narrative Medical decision making narrative: 57-year-old female with complex past medical and surgical history fell x 2 todayat home. Recent surgical repair of her right lower leg due to tib-fib fractures. Reportedly has some complications with the hardware for which she recently saw her orthopedic surgeon Dr. Zenon Tucker. X-rays today have been taken of her right knee, tib-fib and right foot. She wanted the Naprosyn for pain. Exam at 10:45 AM unchanged. We went over her x-ray results which were unremarkable. History & Record Review Discussion w/independent historian: Patient Additional record(s) reviewed:: Prior inpatient record, Prior outpatient record,Prior ED visit and Prior labs Radiography Diagnostic Testing: Clinical Impression(s) from Imaging Studies Foot X-Ray 03/09/23 09:51 IMPRESSION: No evidence of acute fracture. Electronically Signed: Cong Stallworth MD at 10:30 EST Reading Location ID and State: [facility] / [place] Tel , Service support , Knee X-Ray 03/09/23 09:51 IMPRESSION: Status post open reduction internal fixation of fractured proximal tibia with intramedullary stephen. Healing fractures of the proximal tibia and fibula. Electronically Signed: Cong Stallworth MD at 10:37 EST Reading Location ID and State: [facility] / [place] Tel , Service support , Tibia/Fibula X-Ray 03/09/23 09:51 IMPRESSION: Status post open reduction internal fixation of the proximal tibia as described above. No new fracture is seen. Electronically Signed: Cong Stallworth MD at 10:40 EST Reading Location ID and State: [facility] / [place] Tel , Service support , Knee x-ray, 4 views, interpreted by myself and the radiologist shows no acute abnormality. Ealing fractures of the proximal tibia. Healing fracture proximalfibula. Tibial stephen. No acute abnormality. Right tib-fib x-ray 2 views interpreted by myself and the radiologist shows healing fractures of the proximal tibia and fibula. Tibial stephen. No acute fracture today. Right foot x-ray 3 views interpreted by myself and the radiologist. Shows no acute fracture. Osteoporosis. Chronic changes. Discharge Plan Triage Chief Complaint: Fall ED Provider: Johnathon Robertson Dx/Rx/DC Orders Clinical Impression: History of tibial fracture, History of end stage renal disease, History of diabetes mellitus, Fall, Contusion of leg, right Instructions: ED Soft Tissue Contusion Prescriptions: No Action cholecalciferol (vitamin D3) [Vitamin D3] 1,000 UNIT capsule 5,000 unit PO DAILY omeprazole 20 MG capsule 20 mg PO DAILY glipizide 5 MG tablet 10 mg PO DAILY melatonin 5 MG capsule 5 mg PO QHS ferrous sulfate [Iron (ferrous sulfate)] 325 MG tablet 325 mg PO DAILY atorvastatin 40 mg tablet 40 mg PO QHS calcitriol 0.25 mcg capsule 0.25 mcg PO BID Trulicity 1.5 mg/0.5 mL pen injector 1.5 mg SUBCUT CORNELL Patient Comments: PT STATED HASNT USED IN TWO WEEKS sodium bicarbonate 650 mg tablet 650 mg PO QHS amitriptyline 100 mg tablet 100 mg PO QHS docusate sodium [DOK] 100 mg capsule 100 mg PO DAILY Qty: 20 0RF Eliquis 2.5 mg tablet 2.5 mg PO BID Qty: 56 0RF sevelamer carbonate 800 mg tablet 1,600 mg PO TID labetalol 100 mg tablet 100 mg PO BID oxycodone 5 mg tablet 5 mg PO Q6H PRN (Reason: pain) 5 Days Qty: 10 0RF Primary Care Provider: Ignacio Cheatham Referrals: Deshawn Tucker MD [Med Staff - Active Staff] - As Needed Ignacio Cheatham MD [Primary Care Provider] - As Needed Activity Restrictions/Additional Instructions: Ice to all sore areas. Tylenol Motrin for pain. Your x-rays today showed no new injuries. Healing fractures of your tibia and fibula. Follow-up with your doctors as needed. Disposition Disposition: Home, Self Care What to do if you have Problems For any increased pain, shortness of breath, bleeding, nausea or vomiting, chestpain, or any unexpected problems, contact your Primary Care Provider. Call [facility] ([phone]) or report to the closest Emergency Room. Call 911 if necessary. 03/09/23 1051 <Electronically signed by Johnathon Robertson MD> Cosigner Signature (if applicable): CC: Dr. Ignacio Cheatham MD ~ Signed [facility] Work Phone: Evaluation note* Diagnosis Vomiting and diarrhea- Primary Vomiting alone Nausea Nausea alone [facility] Diagnosis Urinary tract infection without hematuria, site unspecified- Primary [facility] Diagnosis Hyperlipidemia, unspecified hyperlipidemia type [facility] Diagnosis Type 2 diabetes, controlled, with neuropathy (HCC)- Primary Type II or unspecified type diabetes mellitus with neurological manifestations, not stated as uncontrolled Essential hypertension Unspecified essential hypertension CKD (chronic kidney disease) Stage 4, GFR 15-29 ml/min Chronic kidney disease, Stage IV (severe) Type 2 diabetes mellitus with stage 4 chronic kidney disease, without long-term current use of insulin (HCC) Bipolar affective disorder, remission status unspecified (HCC) Proliferative diabetic retinopathy associated with type 2 diabetes mellitus, unspecified laterality, unspecified proliferative retinopathy type (HCC) Anxiety with depression Screening breast examination Breast screening, unspecified Fibromyalgia Mylagia and myositis, unspecified [facility] Diagnosis Type 2 diabetes mellitus with stage 4 chronic kidney disease, without long-term current use of insulin (HCC)- Primary [facility] Diagnosis Pre-transplant evaluation for kidney transplant- Primary Other specified pre-operative examination [facility] Diagnosis CKD (chronic kidney disease) stage 4, GFR 15-29 ml/min (HCC) Chronic kidney disease, Stage IV (severe) Pre-transplant evaluation for chronic kidney disease Other specified pre-operative examination Diabetic nephropathy associated with type 2 diabetes mellitus (HCC) [facility] Pre-transplant evaluation for ESRD (end stage renal disease)- Primary Other specified pre-operative examination [facility] Diagnosis Awaiting organ transplant- Primary Awaiting organ transplant status CKD (chronic kidney disease) Stage 4, GFR 15-29 ml/min Chronic kidney disease, Stage IV (severe) Type 2 diabetes, controlled, with neuropathy (HCC) Type II or unspecified type diabetes mellitus with neurological manifestations, not stated as uncontrolled Obesity, Class I, BMI 30-34.9 Obesity, unspecified Dietary counseling and surveillance Dietary surveillance and counseling [facility] Diagnosis Pre-transplant evaluation for kidney transplant Other specified pre-operative examination documented in this encounter [facility] note* Diagnosis Pre-transplant evaluation for CKD (chronic kidney disease)- Primary Other specified pre-operative examination CKD (chronic kidney disease), stage IV (HCC) Chronic kidney disease, Stage IV (severe) Patient awaiting renal transplant Awaiting organ transplant status Personal history of DVT (deep vein thrombosis) Personal history of venous thrombosis and embolism H/O gastric bypass Bariatric surgery status [facility]* Diagnosis Poorly controlled diabetes mellitus (HCC) Type II or unspecified type diabetes mellitus without mention of complication, not stated as uncontrolled documented [facility] this encounter [facility] Work Phone: Evaluation note* Diagnosis Hypotension, unspecified hypotension type- Primary CKD (chronic kidney disease) Stage 4, GFR 15-29 ml/min Chronic kidney disease, Stage IV (severe) Type 2 diabetes mellitus with stage 4 chronic kidney disease, without long-term current use of insulin (HCC) Chronic kidney disease, stage IV (severe) (HCC)- Primary Chronic kidney disease, Stage IV (severe) Secondary renal hyperparathyroidism (HCC) Secondary hyperparathyroidism (of renal origin) Metabolic acidosis Acidosis Anemia of renal disease Anemia in chronic kidney disease Essential hypertension Unspecified essential hypertension Hyperlipidemia, unspecified hyperlipidemia type Vitamin D deficiency Unspecified vitamin D deficiency Persistent proteinuria Proteinuria documented in this encounter [facility] note* Diagnosis Stage 5 chronic kidney disease not on chronic dialysis (HCC)- Primary Secondary renal hyperparathyroidism (HCC) Secondary hyperparathyroidism (of renal origin) Metabolic acidosis Acidosis Anemia of renal disease Anemia in chronic kidney disease Essential hypertension Unspecified essential hypertension Hyperlipidemia, unspecified hyperlipidemia type Vitamin D deficiency Unspecified vitamin D deficiency Persistent proteinuria Proteinuria Hyperphosphatemia Disorders of phosphorus metabolism documented in this encounter [facility] note* Diagnosis CKD (chronic kidney disease) stage 5, GFR less than 15 ml/min (HCC)- Primary Chronic kidney disease, Stage V [facility] Diagnosis CKD (chronic kidney disease) stage 5, GFR less than 15 ml/min (HCC)- Primary Chronic kidney disease, Stage V [facility] Pre-transplant evaluation for chronic kidney disease Other specified pre-operative examination Pre-operative cardiovascular examination Encounter for preprocedural cardiovascular examination Pre-operative cardiovascular examination [facility] Diagnosis Pre-transplant evaluation for chronic kidney disease Other specified pre-operative examination Lung nodules Other nonspecific abnormal finding of lung field [facility] Diagnosis ESRD on dialysis ([facility])- Primary End stage renal disease [facility]* Diagnosis Type 2 diabetes, controlled, with neuropathy ([facility])- Primary Type II or unspecified type diabetes mellitus with neurological manifestations, not stated as uncontrolled Essential hypertension Unspecified essential hypertension Lung nodule Solitary pulmonary nodule Type 2 diabetes mellitus with stage 4 chronic kidney disease, without long-term current use of insulin ([facility]) CKD (chronic kidney disease) Stage 4, GFR 15-29 ml/min Chronic kidney disease, Stage IV (severe) Other iron deficiency anemia Bipolar affective disorder, remission status unspecified ([facility]) Dental infection Acute apical periodontitis of pulpal origin [facility] Diagnosis Poorly controlled type 2 diabetes mellitus (HCC)- Primary Type II or unspecified type diabetes mellitus without mention of complication, not stated as uncontrolled [facility] Diagnosis Viral illness- Primary Unspecified viral infection, in conditions classified elsewhere and of unspecified site [facility] Diagnosis Pulmonary nodules Other nonspecific abnormal finding of lung field [facility] Diagnosis Poorly controlled type 2 diabetes mellitus (HCC) Type II or unspecified type diabetes mellitus without mention of complication, not stated as uncontrolled [facility] Diagnosis Poorly controlled type 2 diabetes mellitus (HCC)- Primary Type II or unspecified type diabetes mellitus without mention of complication, not stated as uncontrolled [facility] Diagnosis Pulmonary nodules Other nonspecific abnormal finding of lung field [facility] Diagnosis Pulmonary nodules Other nonspecific abnormal finding of lung field [facility] Diagnosis CKD (chronic kidney disease) stage 5, GFR less than 15 ml/min (HCC)- Primary Chronic kidney disease, Stage V [facility] Diagnosis Chronic kidney disease, stage 4, severely decreased GFR (HCC)- Primary Chronic kidney disease, Stage IV (severe) Secondary renal hyperparathyroidism (HCC) Secondary hyperparathyroidism (of renal origin) Anemia of renal disease Anemia in chronic kidney disease Metabolic acidosis Acidosis Essential hypertension Unspecified essential hypertension Hyperlipidemia, unspecified hyperlipidemia type Persistent proteinuria Proteinuria Type 2 diabetes, controlled, with neuropathy ([facility]) Type II or unspecified type diabetes mellitus with neurological manifestations, not stated as uncontrolled [facility] Diagnosis Iron malabsorption- Primary Other specified intestinal malabsorption Anemia due to stage 4 chronic kidney disease (HCC) [facility] Diagnosis Anxiety with depression [facility] Diagnosis CKD (chronic kidney disease) Stage 4, GFR 15-29 ml/min- Primary Chronic kidney disease, Stage IV (severe) Iron malabsorption Other specified intestinal malabsorption H/O gastric bypass Bariatric surgery status [facility] Diagnosis CKD (chronic kidney disease) Stage 4, GFR 15-29 ml/min- Primary Chronic kidney disease, Stage IV (severe) Iron malabsorption Other specified intestinal malabsorption H/O gastric bypass Bariatric surgery status [facility] Diagnosis Anemia of renal disease- Primary Anemia in chronic kidney disease CKD (chronic kidney disease) Stage 4, GFR 15-29 ml/min Chronic kidney disease, Stage IV (severe) Iron malabsorption Other specified intestinal malabsorption H/O gastric bypass Bariatric surgery status [facility] Diagnosis CKD (chronic kidney disease) Stage 4, GFR 15-29 ml/min- Primary Chronic kidney disease, Stage IV (severe) Iron malabsorption Other specified intestinal malabsorption H/O gastric bypass Bariatric surgery status [facility] Diagnosis CKD (chronic kidney disease) Stage 4, GFR 15-29 ml/min- Primary Chronic kidney disease, Stage IV (severe) [facility] Diagnosis CKD (chronic kidney disease) stage 4, GFR 15-29 ml/min (HCC)- Primary Chronic kidney disease, Stage IV (severe) Anemia of renal disease Anemia in chronic kidney disease Secondary renal hyperparathyroidism (HCC) Secondary hyperparathyroidism (of renal origin) Primary hypertension Unspecified essential hypertension Hyperlipidemia, unspecified hyperlipidemia type Metabolic acidosis Acidosis [facility] Foot pain, left- Primary Pain in limb [facility] Diagnosis CKD (chronic kidney disease) Stage 4, GFR 15-29 ml/min- Primary Chronic kidney disease, Stage IV (severe) [facility] Diagnosis Repetitive stress injury- Primary Unspecified site of sprain and strain Other diabetic neurological complication associated with type 2 diabetes mellitus (HCC) Hammertoe of left foot Callus Corns and callosities [facility] Diagnosis Viral URI with cough- Primary Acute upper respiratory infections of unspecified site [facility] Diagnosis Iron malabsorption- Primary Other specified intestinal malabsorption Chronic kidney disease (CKD), stage IV (severe) (HCC) Chronic kidney disease, Stage IV (severe) Anemia due to stage 4 chronic kidney disease (HCC) [facility] Diagnosis Chronic kidney disease, stage 4, severely decreased GFR (HCC)- Primary Chronic kidney disease, Stage IV (severe) [facility] Diagnosis Urinary frequency- Primary [facility] Diagnosis Iron malabsorption- Primary Other specified intestinal malabsorption Anemia due to stage 4 chronic kidney disease (HCC) [facility] Diagnosis Anxiety with depression Neuropathy Mononeuritis of unspecified site [facility] Diagnosis Post-traumatic osteoarthritis of left knee- Primary Secondary localized osteoarthrosis, lower leg Chronic pain of left knee Pain in joint, lower leg Type 2 diabetes mellitus with stage 4 chronic kidney disease, without long-term current use of insulin ([facility]) [facility] Diagnosis CKD (chronic kidney disease) stage 5, GFR less than 15 ml/min (HCC)- Primary Chronic kidney disease, Stage V Secondary renal hyperparathyroidism (HCC) Secondary hyperparathyroidism (of renal origin) Primary hypertension Unspecified essential hypertension Metabolic acidosis Acidosis Hyperlipidemia, unspecified hyperlipidemia type [facility] Diagnosis Chronic pain of left knee- Primary Pain in joint, lower leg Post-traumatic osteoarthritis of left knee Secondary localized osteoarthrosis, lower leg [facility] Diagnosis ESRD (end stage renal disease) (HCC)- Primary End stage renal disease [facility] Diagnosis Acute UTI- Primary Urinary tract infection, site not specified ESRD (end stage renal disease) (HCC) End stage renal disease [facility] Diagnosis Secondary renal hyperparathyroidism (HCC) Secondary hyperparathyroidism (of renal origin) ESRD (end stage renal disease) (HCC) End stage renal disease [facility] Diagnosis Pre-operative examination- Primary Preoperative examination, unspecified Mild intermittent asthma without complication Unspecified asthma Bipolar affective disorder, remission status unspecified ([facility]) Anemia, unspecified type Neuropathy Mononeuritis of unspecified site Gastroesophageal reflux disease, unspecified whether esophagitis present Type 2 diabetes, controlled, with neuropathy ([facility]) Type II or unspecified type diabetes mellitus with neurological manifestations, not stated as uncontrolled H/O gastric bypass Bariatric surgery status Essential hypertension Unspecified essential hypertension Mixed hyperlipidemia Personal history of DVT (deep vein thrombosis) Personal history of venous thrombosis and embolism Hypercoagulable state (HCC) Primary hypercoagulable state ESRD (end stage renal disease) (HCC) End stage renal disease Pulmonary nodules Other nonspecific abnormal finding of lung field Class 2 severe obesity due to excess calories with serious comorbidity and body mass index (BMI) of 36.0 to 36.9 in adult ([facility]) Hyperkalemia Hyperpotassemia ESRD (end stage renal disease) (HCC) End stage renal disease [facility] Diagnosis Procedure not carried out- Primary Procedure not carried out for other reasons [facility] Diagnosis CKD (chronic kidney disease) stage 5, GFR less than 15 ml/min (HCC)- Primary Chronic kidney disease, Stage V [facility] Diagnosis End stage renal disease (HCC)- Primary End stage renal disease [facility] CKD (chronic kidney disease) Stage 4, GFR 15-29 ml/min- Primary Chronic kidney disease, Stage IV (severe) [facility] Diagnosis Hyperkalemia- Primary Hyperpotassemia [facility] Diagnosis CKD (chronic kidney disease) stage 5, GFR less than 15 ml/min (HCC)- Primary Chronic kidney disease, Stage V [facility] Diagnosis Inability to ambulate due to multiple joints- Primary Difficulty in walking Superficial phlebitis of right leg Phlebitis and thrombophlebitis of superficial vessels of lower extremities Type 2 diabetes, controlled, with neuropathy (HCC) Type II or unspecified type diabetes mellitus with neurological manifestations, not stated as uncontrolled Essential hypertension Unspecified essential hypertension [facility] Diagnosis CKD (chronic kidney disease) stage 5, GFR less than 15 ml/min ([facility])- Primary Chronic kidney disease, Stage V Anemia of renal disease Anemia in chronic kidney disease Hyperkalemia Hyperpotassemia Metabolic acidosis Acidosis Hypocalcemia [facility] Diagnosis Onset Date Resolution Status Inability to walk acute Obesity acute Right leg pain acute Benign essential hypertension chronic History of diabetes mellitus, type II chronic Kidney disease, chronic, stage IV (GFR 15-29 ml/min) [facility] Work Phone: Evaluation note* Diagnosis CKD (chronic kidney disease) stage 5, GFR less than 15 ml/min (HCC) Chronic kidney disease, Stage V Hyperphosphatemia Disorders of phosphorus metabolism [facility] Diagnosis Onset Date Resolution Status Inability to walk acute Right leg pain acute [facility] Work Phone: Evaluation note* Diagnosis Acute post-operative pain [facility] Diagnosis Pain of right lower extremity- Primary Mixed hyperlipidemia Abnormal x-ray Other nonspecific (abnormal) findings on radiological and other examinations of body structure Lumbar radiculopathy Thoracic or lumbosacral neuritis or radiculitis, unspecified Primary hypertension Unspecified essential hypertension Type 2 diabetes, controlled, with neuropathy (HCC) Type II or unspecified type diabetes mellitus with neurological manifestations, not stated as uncontrolled End stage renal disease (HCC) End stage renal disease Anxiety Anxiety state, unspecified [facility] Diagnosis Neuropathy of hand, unspecified laterality- Primary Encounter for drug screening Other specified examination [facility] Diagnosis Dysuria- Primary [facility] Diagnosis Dysuria- Primary [facility]* Diagnosis Stress fracture of right tibia, initial encounter- Primary Pain of right lower extremity [facility]* Diagnosis Stress fracture of right tibia, initial encounter- Primary [facility]* Diagnosis Right elbow pain Pain in joint, upper arm [facility]* Diagnosis Stress fracture of right tibia, initial encounter [facility]* Diagnosis Chronic pain of left knee Pain in joint, lower leg [facility]* Diagnosis Pain of right lower extremity Stress fracture of left tibia, initial encounter [facility]* Diagnosis Screening breast examination Breast screening, unspecified documented in this encounter [facility] note* Diagnosis CKD (chronic kidney disease) stage 5, GFR less than 15 ml/min ([facility]) Chronic kidney disease, Stage V documented in this encounter [facility] note* Diagnosis Intervertebral disc stenosis of neural canal of lumbar region- Primary Spinal stenosis, lumbar region, without neurogenic claudication Stress fracture of right tibia with routine healing, subsequent encounter documented in this encounter [facility] note* Diagnosis Onset Date Resolution Status ESRD (end stage renal disease) on dialysis acute Fracture of right lower extremity acute History of COPD chronic [facility] Work Phone: Evaluation note* Diagnosis Type 2 diabetes, controlled, with neuropathy ([facility]) Type II or unspecified type diabetes mellitus with neurological manifestations, not stated as uncontrolled [facility] Diagnosis Onset Date Resolution Status Anemia acute Anxiety and depression acute Benign essential hypertension acute Diabetes mellitus, type 2 ac carissa ESRD (end stage renal disease) on dialysis acute Fracture of fibula, right, closed acute Fracture of right lower extremity acute Hyperkalemia acute Inability to walk acute Osteoarthritis of right knee acute Pathological fracture, right tibia, initial encounter for fracture acute Secondary hyperparathyroidism acute History of asthma chronic History of bipolar disorder chronic History of COPD chronic History of tobacco use chron ic [facility] Work Phone: Evaluation note* Diagnosis Onset Date Resolution Status Secondary hyperparathyroidism resolved [facility] Work Phone: Evaluation note* Diagnosis Lung nodules Other nonspecific abnormal finding of lung field documented in this encounter [facility] note* Diagnosis Lung nodules- Primary Other nonspecific abnormal finding of lung field documented in this encounter [facility] note* Diagnosis 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, with long-term current use of insulin ([facility])- Primary Presbyopia Pseudophakia of both eyes Lens replaced by other means documented in this encounter [facility] note* Diagnosis Ingrowing toenail of right foot- Primary Ingrowing nail Neuropathy Mononeuritis of unspecified site Type 2 diabetes, controlled, with neuropathy (HCC) Type II or unspecified type diabetes mellitus with neurological manifestations, not stated as uncontrolled Open wound of toe of right foot Diminished pulses in lower extremity Other symptoms involving cardiovascular system [place], bilateral documented in this encounter [facility] note* Diagnosis Encounter for screening mammogram for breast cancer documented in this encounter [facility] note* Diagnosis 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 documented in this encounter [facility] note* Diagnosis 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- Primary documented in this encounter [facility] note* Diagnosis 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- Primary [facility]* Diagnosis 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 [facility]* Diagnosis 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 [facility]* Diagnosis 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- Primary documented in this encounter [facility] note* Diagnosis 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- Primary documented in this encounter [facility] note* Diagnosis 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- Primary [facility]* Diagnosis Pre-operative examination- Primary Preoperative examination, unspecified Mild intermittent asthma without complication Unspecified asthma Bipolar affective disorder, remission status unspecified ([facility]) Anemia, unspecified type Neuropathy Mononeuritis of unspecified site Gastroesophageal reflux disease, unspecified whether esophagitis present Type 2 diabetes, controlled, with neuropathy (HCC) Type II or unspecified type diabetes mellitus with neurological manifestations, not stated as uncontrolled H/O gastric bypass Bariatric surgery status Essential hypertension Unspecified essential hypertension Mixed hyperlipidemia Personal history of DVT (deep vein thrombosis) Personal history of venous thrombosis and embolism Hypercoagulable state (HCC) Primary hypercoagulable state ESRD (end stage renal disease) ([facility]) End stage renal disease Pulmonary nodules Other nonspecific abnormal finding of lung field Class 2 severe obesity due to excess calories with serious comorbidity and body mass index (BMI) of 36.0 to 36.9 in adult ([facility]) Hyperkalemia Hyperpotassemia Foot pain, right Pain in limb Acute right ankle pain documented in this encounter [facility] note* Diagnosis Neck pain Cervicalgia Rib pain on right side Chest pain, unspecified Pre-operative examination- Primary Preoperative examination, unspecified Mild intermittent asthma without complication Unspecified asthma Bipolar affective disorder, remission status unspecified ([facility]) Anemia, unspecified type Neuropathy Mononeuritis of unspecified site Gastroesophageal reflux disease, unspecified whether esophagitis present Type 2 diabetes, controlled, with neuropathy ([facility]) Type II or unspecified type diabetes mellitus with neurological manifestations, not stated as uncontrolled H/O gastric bypass Bariatric surgery status Essential hypertension Unspecified essential hypertension Mixed hyperlipidemia Personal history of DVT (deep vein thrombosis) Personal history of venous thrombosis and embolism Hypercoagulable state ([facility]) Primary hypercoagulable state ESRD (end stage renal disease) ([facility]) End stage renal disease Pulmonary nodules Other nonspecific abnormal finding of lung field Class 2 severe obesity due to excess calories with serious comorbidity and body mass index (BMI) of 36.0 to 36.9 in adult ([facility]) Hyperkalemia Hyperpotassemia documented in this encounter [facility] note* Diagnosis Pre-operative examination- Primary Preoperative examination, unspecified Mild intermittent asthma without complication Unspecified asthma Bipolar affective disorder, remission status unspecified ([facility]) Anemia, unspecified type Neuropathy Mononeuritis of unspecified site Gastroesophageal reflux disease, unspecified whether esophagitis present Type 2 diabetes, controlled, with neuropathy ([facility]) Type II or unspecified type diabetes mellitus with neurological manifestations, not stated as uncontrolled H/O gastric bypass Bariatric surgery status Essential hypertension Unspecified essential hypertension Mixed hyperlipidemia Personal history of DVT (deep vein thrombosis) Personal history of venous thrombosis and embolism Hypercoagulable state ([facility]) Primary hypercoagulable state ESRD (end stage renal disease) ([facility]) End stage renal disease Pulmonary nodules Other nonspecific abnormal finding of lung field Class 2 severe obesity due to excess calories with serious comorbidity and body mass index (BMI) of 36.0 to 36.9 in adult ([facility]) Hyperkalemia Hyperpotassemia Pathological fracture of both tibia and fibula of right lower extremity due to other disease with delayed healing, subsequent encounter- Primary Anxiety Anxiety state, unspecified ESRD (end stage renal disease) ([facility]) End stage renal disease Dental infection Acute apical periodontitis of pulpal origin Neuropathy Mononeuritis of unspecified site Mixed hyperlipidemia Encounter for immunization Need for other specified prophylactic vaccination against single bacterial disease Type 2 diabetes mellitus with stage 4 chronic kidney disease, without long-term current use of insulin ([facility]) Gastroesophageal reflux disease, unspecified whether esophagitis present CASSIE (obstructive sleep apnea) Obstructive sleep apnea (adult) (pediatric) [facility]* Diagnosis Pre-operative examination- Primary Preoperative examination, unspecified Mild intermittent asthma without complication Unspecified asthma Bipolar affective disorder, remission status unspecified ([facility]) Anemia, unspecified type Neuropathy Mononeuritis of unspecified site Gastroesophageal reflux disease, unspecified whether esophagitis present Type 2 diabetes, controlled, with neuropathy ([facility]) Type II or unspecified type diabetes mellitus with neurological manifestations, not stated as uncontrolled H/O gastric bypass Bariatric surgery status Essential hypertension Unspecified essential hypertension Mixed hyperlipidemia Personal history of DVT (deep vein thrombosis) Personal history of venous thrombosis and embolism Hypercoagulable state ([facility]) Primary hypercoagulable state ESRD (end stage renal disease) ([facility]) End stage renal disease Pulmonary nodules Other nonspecific abnormal finding of lung field Class 2 severe obesity due to excess calories with serious comorbidity and body mass index (BMI) of 36.0 to 36.9 in adult ([facility]) Hyperkalemia Hyperpotassemia Type 2 diabetes, controlled, with neuropathy ([facility])- Primary Type II or unspecified type diabetes mellitus with neurological manifestations, not stated as uncontrolled Primary hypertension Unspecified essential hypertension Mixed hyperlipidemia CASSIE (obstructive sleep apnea) Obstructive sleep apnea (adult) (pediatric) ESRD (end stage renal disease) ([facility]) End stage renal disease Proliferative diabetic retinopathy associated with type 2 diabetes mellitus, unspecified laterality, unspecified proliferative retinopathy type ([facility]) 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 Bipolar affective disorder, remission status unspecified ([facility]) Personal history of DVT (deep vein thrombosis) Personal history of venous thrombosis and embolism documented in this encounter [facility] note* Diagnosis Pre-operative examination- Primary Preoperative examination, unspecified Mild intermittent asthma without complication Unspecified asthma Bipolar affective disorder, remission status unspecified ([facility]) Anemia, unspecified type Neuropathy Mononeuritis of unspecified site Gastroesophageal reflux disease, unspecified whether esophagitis present Type 2 diabetes, controlled, with neuropathy (HCC) Type II or unspecified type diabetes mellitus with neurological manifestations, not stated as uncontrolled H/O gastric bypass Bariatric surgery status Essential hypertension Unspecified essential hypertension Mixed hyperlipidemia Personal history of DVT (deep vein thrombosis) Personal history of venous thrombosis and embolism Hypercoagulable state (HCC) Primary hypercoagulable state ESRD (end stage renal disease) (HCC) End stage renal disease Pulmonary nodules Other nonspecific abnormal finding of lung field Class 2 severe obesity due to excess calories with serious comorbidity and body mass index (BMI) of 36.0 to 36.9 in adult ([facility]) Hyperkalemia Hyperpotassemia 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- Primary Primary osteoarthritis of left knee Primary localized osteoarthrosis, lower leg [facility]* Diagnosis Pre-operative examination- Primary Preoperative examination, unspecified Mild intermittent asthma without complication Unspecified asthma Bipolar affective disorder, remission status unspecified ([facility]) Anemia, unspecified type Neuropathy Mononeuritis of unspecified site Gastroesophageal reflux disease, unspecified whether esophagitis present Type 2 diabetes, controlled, with neuropathy (HCC) Type II or unspecified type diabetes mellitus with neurological manifestations, not stated as uncontrolled H/O gastric bypass Bariatric surgery status Essential hypertension Unspecified essential hypertension Mixed hyperlipidemia Personal history of DVT (deep vein thrombosis) Personal history of venous thrombosis and embolism Hypercoagulable state (HCC) Primary hypercoagulable state ESRD (end stage renal disease) ([facility]) End stage renal disease Pulmonary nodules Other nonspecific abnormal finding of lung field Class 2 severe obesity due to excess calories with serious comorbidity and body mass index (BMI) of 36.0 to 36.9 in adult ([facility]) Hyperkalemia Hyperpotassemia CASSIE (obstructive sleep apnea)- Primary Obstructive sleep apnea (adult) (pediatric) Controlled type 2 diabetes mellitus without complication, without long-term current use of insulin ([facility])- Primary documented in this encounter [facility] note* Diagnosis Pre-operative examination- Primary Preoperative examination, unspecified Mild intermittent asthma without complication Unspecified asthma Bipolar affective disorder, remission status unspecified ([facility]) Anemia, unspecified type Neuropathy Mononeuritis of unspecified site Gastroesophageal reflux disease, unspecified whether esophagitis present Type 2 diabetes, controlled, with neuropathy ([facility]) Type II or unspecified type diabetes mellitus with neurological manifestations, not stated as uncontrolled H/O gastric bypass Bariatric surgery status Essential hypertension Unspecified essential hypertension Mixed hyperlipidemia Personal history of DVT (deep vein thrombosis) Personal history of venous thrombosis and embolism Hypercoagulable state (HCC) Primary hypercoagulable state ESRD (end stage renal disease) ([facility]) End stage renal disease Pulmonary nodules Other nonspecific abnormal finding of lung field Class 2 severe obesity due to excess calories with serious comorbidity and body mass index (BMI) of 36.0 to 36.9 in adult ([facility]) Hyperkalemia Hyperpotassemia Type 2 diabetes, controlled, with neuropathy ([facility])- Primary Type II or unspecified type diabetes mellitus with neurological manifestations, not stated as uncontrolled [facility]* Diagnosis Pre-operative examination- Primary Preoperative examination, unspecified Mild intermittent asthma without complication Unspecified asthma Bipolar affective disorder, remission status unspecified ([facility]) Anemia, unspecified type Neuropathy Mononeuritis of unspecified site Gastroesophageal reflux disease, unspecified whether esophagitis present Type 2 diabetes, controlled, with neuropathy ([facility]) Type II or unspecified type diabetes mellitus with neurological manifestations, not stated as uncontrolled H/O gastric bypass Bariatric surgery status Essential hypertension Unspecified essential hypertension Mixed hyperlipidemia Personal history of DVT (deep vein thrombosis) Personal history of venous thrombosis and embolism Hypercoagulable state ([facility]) Primary hypercoagulable state ESRD (end stage renal disease) ([facility]) End stage renal disease Pulmonary nodules Other nonspecific abnormal finding of lung field Class 2 severe obesity due to excess calories with serious comorbidity and body mass index (BMI) of 36.0 to 36.9 in adult ([facility]) Hyperkalemia Hyperpotassemia Stenosis of arteriovenous graft, 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[facility])- Primary ESRD (end stage renal disease) ([facility]) End stage renal disease documented in this encounter [facility] note* Diagnosis Pre-operative examination- Primary Preoperative examination, unspecified Mild intermittent asthma without complication Unspecified asthma Bipolar affective disorder, remission status unspecified ([facility]) Anemia, unspecified type Neuropathy Mononeuritis of unspecified site Gastroesophageal reflux disease, unspecified whether esophagitis present Type 2 diabetes, controlled, with neuropathy ([facility]) Type II or unspecified type diabetes mellitus with neurological manifestations, not stated as uncontrolled H/O gastric bypass Bariatric surgery status Essential hypertension Unspecified essential hypertension Mixed hyperlipidemia Personal history of DVT (deep vein thrombosis) Personal history of venous thrombosis and embolism Hypercoagulable state (HCC) Primary hypercoagulable state ESRD (end stage renal disease) (HCC) End stage renal disease Pulmonary nodules Other nonspecific abnormal finding of lung field Class 2 severe obesity due to excess calories with serious comorbidity and body mass index (BMI) of 36.0 to 36.9 in adult ([facility]) Hyperkalemia Hyperpotassemia TIA (transient ischemic attack)- Primary Unspecified transient cerebral ischemia Type 2 diabetes, controlled, with neuropathy ([facility]) Type II or unspecified type diabetes mellitus with neurological manifestations, not stated as uncontrolled Primary hypertension Unspecified essential hypertension Type 2 diabetes mellitus with stage 4 chronic kidney disease, without long-term current use of insulin ([facility]) ESRD (end stage renal disease) ([facility]) End stage renal disease Spinal stenosis of lumbar region, unspecified whether neurogenic claudication present Anxiety Anxiety state, unspecified [facility] Diagnosis Pre-operative examination- Primary Preoperative examination, unspecified Mild intermittent asthma without complication Unspecified asthma Bipolar affective disorder, remission status unspecified ([facility]) Anemia, unspecified type Neuropathy Mononeuritis of unspecified site Gastroesophageal reflux disease, unspecified whether esophagitis present Type 2 diabetes, controlled, with neuropathy ([facility]) Type II or unspecified type diabetes mellitus with neurological manifestations, not stated as uncontrolled H/O gastric bypass Bariatric surgery status Essential hypertension Unspecified essential hypertension Mixed hyperlipidemia Personal history of DVT (deep vein thrombosis) Personal history of venous thrombosis and embolism Hypercoagulable state (HCC) Primary hypercoagulable state ESRD (end stage renal disease) ([facility]) End stage renal disease Pulmonary nodules Other nonspecific abnormal finding of lung field Class 2 severe obesity due to excess calories with serious comorbidity and body mass index (BMI) of 36.0 to 36.9 in adult ([facility]) Hyperkalemia Hyperpotassemia Dental decay- Primary Unspecified dental caries [facility] Diagnosis Pre-operative examination- Primary Preoperative examination, unspecified Mild intermittent asthma without complication Unspecified asthma Bipolar affective disorder, remission status unspecified ([facility]) Anemia, unspecified type Neuropathy Mononeuritis of unspecified site Gastroesophageal reflux disease, unspecified whether esophagitis present Type 2 diabetes, controlled, with neuropathy ([facility]) Type II or unspecified type diabetes mellitus with neurological manifestations, not stated as uncontrolled H/O gastric bypass Bariatric surgery status Essential hypertension Unspecified essential hypertension Mixed hyperlipidemia Personal history of DVT (deep vein thrombosis) Personal history of venous thrombosis and embolism Hypercoagulable state (HCC) Primary hypercoagulable state ESRD (end stage renal disease) (HCC) End stage renal disease Pulmonary nodules Other nonspecific abnormal finding of lung field Class 2 severe obesity due to excess calories with serious comorbidity and body mass index (BMI) of 36.0 to 36.9 in adult (HCC) Hyperkalemia Hyperpotassemia ESRD (end stage renal disease) ([facility])- Primary End stage renal disease Proliferative diabetic retinopathy associated with type 2 diabetes mellitus, unspecified laterality, unspecified proliferative retinopathy type ([facility]) TIA (transient ischemic attack) Unspecified transient cerebral ischemia documented in this encounter [facility] note* Diagnosis Pre-operative examination- Primary Preoperative examination, unspecified Mild intermittent asthma without complication Unspecified asthma Bipolar affective disorder, remission status unspecified ([facility]) Anemia, unspecified type Neuropathy Mononeuritis of unspecified site Gastroesophageal reflux disease, unspecified whether esophagitis present Type 2 diabetes, controlled, with neuropathy (HCC) Type II or unspecified type diabetes mellitus with neurological manifestations, not stated as uncontrolled H/O gastric bypass Bariatric surgery status Essential hypertension Unspecified essential hypertension Mixed hyperlipidemia Personal history of DVT (deep vein thrombosis) Personal history of venous thrombosis and embolism Hypercoagulable state (HCC) Primary hypercoagulable state ESRD (end stage renal disease) (HCC) End stage renal disease Pulmonary nodules Other nonspecific abnormal finding of lung field Class 2 severe obesity due to excess calories with serious comorbidity and body mass index (BMI) of 36.0 to 36.9 in adult ([facility]) Hyperkalemia Hyperpotassemia Encounter for screening mammogram for breast cancer [facility] Diagnosis Pre-operative examination- Primary Preoperative examination, unspecified Mild intermittent asthma without complication (HCC) Unspecified asthma Bipolar affective disorder, remission status unspecified ([facility]) Anemia, unspecified type Neuropathy Mononeuritis of unspecified site Gastroesophageal reflux disease, unspecified whether esophagitis present Type 2 diabetes, controlled, with neuropathy (HCC) Type II or unspecified type diabetes mellitus with neurological manifestations, not stated as uncontrolled H/O gastric bypass Bariatric surgery status Essential hypertension Unspecified essential hypertension Mixed hyperlipidemia Personal history of DVT (deep vein thrombosis) Personal history of venous thrombosis and embolism Hypercoagulable state (HCC) Primary hypercoagulable state ESRD (end stage renal disease) (HCC) End stage renal disease Pulmonary nodules Other nonspecific abnormal finding of lung field Class 2 severe obesity due to excess calories with serious comorbidity and body mass index (BMI) of 36.0 to 36.9 in adult ([facility]) Hyperkalemia Hyperpotassemia Type 2 diabetes, controlled, with neuropathy ([facility])- Primary Type II or unspecified type diabetes mellitus with neurological manifestations, not stated as uncontrolled Anxiety Anxiety state, unspecified Primary hypertension Unspecified essential hypertension Mixed hyperlipidemia Gastroesophageal reflux disease, unspecified whether esophagitis present CASSIE (obstructive sleep apnea) Obstructive sleep apnea (adult) (pediatric) Chronic insomnia Insomnia, unspecified Lung nodules Other nonspecific abnormal finding of lung field Other chronic pain Fibromyalgia Mylagia and myositis, unspecified Weakness of both lower extremities End stage renal disease on dialysis (HCC) End stage renal disease Sleep apnea, unspecified type [facility]* Diagnosis Pre-operative examination- Primary Preoperative examination, unspecified Mild intermittent asthma without complication ([facility]) Unspecified asthma Bipolar affective disorder, remission status unspecified ([facility]) Anemia, unspecified type Neuropathy Mononeuritis of unspecified site Gastroesophageal reflux disease, unspecified whether esophagitis present Type 2 diabetes, controlled, with neuropathy ([facility]) Type II or unspecified type diabetes mellitus with neurological manifestations, not stated as uncontrolled H/O gastric bypass Bariatric surgery status Essential hypertension Unspecified essential hypertension Mixed hyperlipidemia Personal history of DVT (deep vein thrombosis) Personal history of venous thrombosis and embolism Hypercoagulable state (HCC) Primary hypercoagulable state ESRD (end stage renal disease) (HCC) End stage renal disease Pulmonary nodules Other nonspecific abnormal finding of lung field Class 2 severe obesity due to excess calories with serious comorbidity and body mass index (BMI) of 36.0 to 36.9 in adult ([facility]) Hyperkalemia Hyperpotassemia Type 2 diabetes, controlled, with neuropathy ([facility])- Primary Type II or unspecified type diabetes mellitus with neurological manifestations, not stated as uncontrolled [facility]* Diagnosis Pre-operative examination- Primary Preoperative examination, unspecified Mild intermittent asthma without complication ([facility]) Unspecified asthma Bipolar affective disorder, remission status unspecified ([facility]) Anemia, unspecified type Neuropathy Mononeuritis of unspecified site Gastroesophageal reflux disease, unspecified whether esophagitis present Type 2 diabetes, controlled, with neuropathy (HCC) Type II or unspecified type diabetes mellitus with neurological manifestations, not stated as uncontrolled H/O gastric bypass Bariatric surgery status Essential hypertension Unspecified essential hypertension Mixed hyperlipidemia Personal history of DVT (deep vein thrombosis) Personal history of venous thrombosis and embolism Hypercoagulable state (HCC) Primary hypercoagulable state ESRD (end stage renal disease) (HCC) End stage renal disease Pulmonary nodules Other nonspecific abnormal finding of lung field Class 2 severe obesity due to excess calories with serious comorbidity and body mass index (BMI) of 36.0 to 36.9 in adult ([facility]) Hyperkalemia Hyperpotassemia RLS (restless legs syndrome)- Primary Restless legs syndrome (RLS) Insomnia, unspecified type CASSIE (obstructive sleep apnea) Obstructive sleep apnea (adult) (pediatric) Stage 5 chronic kidney disease on chronic dialysis ([facility]) Diabetes mellitus treated with injections of non-insulin medication ([facility])- Primary [facility] Diagnosis Pre-operative examination- Primary Preoperative examination, unspecified Mild intermittent asthma without complication ([facility]) Unspecified asthma Bipolar affective disorder, remission status unspecified ([facility]) Anemia, unspecified type Neuropathy Mononeuritis of unspecified site Gastroesophageal reflux disease, unspecified whether esophagitis present Type 2 diabetes, controlled, with neuropathy ([facility]) Type II or unspecified type diabetes mellitus with neurological manifestations, not stated as uncontrolled H/O gastric bypass Bariatric surgery status Essential hypertension Unspecified essential hypertension Mixed hyperlipidemia Personal history of DVT (deep vein thrombosis) Personal history of venous thrombosis and embolism Hypercoagulable state (HCC) Primary hypercoagulable state ESRD (end stage renal disease) (HCC) End stage renal disease Pulmonary nodules Other nonspecific abnormal finding of lung field Class 2 severe obesity due to excess calories with serious comorbidity and body mass index (BMI) of 36.0 to 36.9 in adult ([facility]) Hyperkalemia Hyperpotassemia Diabetes mellitus treated with injections of non-insulin medication ([facility])- Primary Type 2 diabetes, controlled, with neuropathy (HCC) Type II or unspecified type diabetes mellitus with neurological manifestations, not stated as uncontrolled [facility] Diagnosis Pre-operative examination- Primary Preoperative examination, unspecified Mild intermittent asthma without complication (HCC) Unspecified asthma Bipolar affective disorder, remission status unspecified ([facility]) Anemia, unspecified type Neuropathy Mononeuritis of unspecified site Gastroesophageal reflux disease, unspecified whether esophagitis present Type 2 diabetes, controlled, with neuropathy (HCC) Type II or unspecified type diabetes mellitus with neurological manifestations, not stated as uncontrolled H/O gastric bypass Bariatric surgery status Essential hypertension Unspecified essential hypertension Mixed hyperlipidemia Personal history of DVT (deep vein thrombosis) Personal history of venous thrombosis and embolism Hypercoagulable state (HCC) Primary hypercoagulable state ESRD (end stage renal disease) ([facility]) End stage renal disease Pulmonary nodules Other nonspecific abnormal finding of lung field Class 2 severe obesity due to excess calories with serious comorbidity and body mass index (BMI) of 36.0 to 36.9 in adult ([facility]) Hyperkalemia Hyperpotassemia 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, with long-term current use of insulin ([facility])- Primary Presbyopia Pseudophakia of both eyes Lens replaced by other means [facility]* Diagnosis Pre-operative examination- Primary Preoperative examination, unspecified Mild intermittent asthma without complication ([facility]) Unspecified asthma Bipolar affective disorder, remission status unspecified ([facility]) Anemia, unspecified type Neuropathy Mononeuritis of unspecified site Gastroesophageal reflux disease, unspecified whether esophagitis present Type 2 diabetes, controlled, with neuropathy ([facility]) Type II or unspecified type diabetes mellitus with neurological manifestations, not stated as uncontrolled H/O gastric bypass Bariatric surgery status Essential hypertension Unspecified essential hypertension Mixed hyperlipidemia Personal history of DVT (deep vein thrombosis) Personal history of venous thrombosis and embolism Hypercoagulable state (HCC) Primary hypercoagulable state ESRD (end stage renal disease) ([facility]) End stage renal disease Pulmonary nodules Other nonspecific abnormal finding of lung field Class 2 severe obesity due to excess calories with serious comorbidity and body mass index (BMI) of 36.0 to 36.9 in adult ([facility]) Hyperkalemia Hyperpotassemia Lung nodules Other nonspecific abnormal finding of lung field [facility] Diagnosis Pre-operative examination- Primary Preoperative examination, unspecified Mild intermittent asthma without complication ([facility]) Unspecified asthma Bipolar affective disorder, remission status unspecified ([facility]) Anemia, unspecified type Neuropathy Mononeuritis of unspecified site Gastroesophageal reflux disease, unspecified whether esophagitis present Type 2 diabetes, controlled, with neuropathy (HCC) Type II or unspecified type diabetes mellitus with neurological manifestations, not stated as uncontrolled H/O gastric bypass Bariatric surgery status Essential hypertension Unspecified essential hypertension Mixed hyperlipidemia Personal history of DVT (deep vein thrombosis) Personal history of venous thrombosis and embolism Hypercoagulable state (HCC) Primary hypercoagulable state ESRD (end stage renal disease) (HCC) End stage renal disease Pulmonary nodules Other nonspecific abnormal finding of lung field Class 2 severe obesity due to excess calories with serious comorbidity and body mass index (BMI) of 36.0 to 36.9 in adult (HCC) Hyperkalemia Hyperpotassemia CASSIE (obstructive sleep apnea)- Primary Obstructive sleep apnea (adult) (pediatric) Essential hypertension Unspecified essential hypertension [facility]* Diagnosis Pre-operative examination- Primary Preoperative examination, unspecified Mild intermittent asthma without complication (HCC) Unspecified asthma Bipolar affective disorder, remission status unspecified ([facility]) Anemia, unspecified type Neuropathy Mononeuritis of unspecified site Gastroesophageal reflux disease, unspecified whether esophagitis present Type 2 diabetes, controlled, with neuropathy (HCC) Type II or unspecified type diabetes mellitus with neurological manifestations, not stated as uncontrolled H/O gastric bypass Bariatric surgery status Essential hypertension Unspecified essential hypertension Mixed hyperlipidemia Personal history of DVT (deep vein thrombosis) Personal history of venous thrombosis and embolism Hypercoagulable state (HCC) Primary hypercoagulable state ESRD (end stage renal disease) (HCC) End stage renal disease Pulmonary nodules Other nonspecific abnormal finding of lung field Class 2 severe obesity due to excess calories with serious comorbidity and body mass index (BMI) of 36.0 to 36.9 in adult (HCC) Hyperkalemia Hyperpotassemia ESRD (end stage renal disease) (HCC)- Primary End stage renal disease ESRD (end stage renal disease) (HCC) End stage renal disease [facility] Diagnosis Pre-operative examination- Primary Preoperative examination, unspecified Mild intermittent asthma without complication (HCC) Unspecified asthma Bipolar affective disorder, remission status unspecified (HCC) Anemia, unspecified type Neuropathy Mononeuritis of unspecified site Gastroesophageal reflux disease, unspecified whether esophagitis present Type 2 diabetes, controlled, with neuropathy (HCC) Type II or unspecified type diabetes mellitus with neurological manifestations, not stated as uncontrolled H/O gastric bypass Bariatric surgery status Essential hypertension Unspecified essential hypertension Mixed hyperlipidemia Personal history of DVT (deep vein thrombosis) Personal history of venous thrombosis and embolism Hypercoagulable state (HCC) Primary hypercoagulable state ESRD (end stage renal disease) (HCC) End stage renal disease Pulmonary nodules Other nonspecific abnormal finding of lung field Class 2 severe obesity due to excess calories with serious comorbidity and body mass index (BMI) of 36.0 to 36.9 in adult ([facility]) Hyperkalemia Hyperpotassemia Acute exacerbation of chronic obstructive pulmonary disease ([facility])- Primary Obstructive chronic bronchitis with exacerbation Irritable bowel syndrome, unspecified type ESRD (end stage renal disease) ([facility]) End stage renal disease documented in this encounter [facility] note* Diagnosis Pre-operative examination- Primary Preoperative examination, unspecified Mild intermittent asthma without complication ([facility]) Unspecified asthma Bipolar affective disorder, remission status unspecified ([facility]) Anemia, unspecified type Neuropathy Mononeuritis of unspecified site Gastroesophageal reflux disease, unspecified whether esophagitis present Type 2 diabetes, controlled, with neuropathy ([facility]) Type II or unspecified type diabetes mellitus with neurological manifestations, not stated as uncontrolled H/O gastric bypass Bariatric surgery status Essential hypertension Unspecified essential hypertension Mixed hyperlipidemia Personal history of DVT (deep vein thrombosis) Personal history of venous thrombosis and embolism Hypercoagulable state (HCC) Primary hypercoagulable state ESRD (end stage renal disease) ([facility]) End stage renal disease Pulmonary nodules Other nonspecific abnormal finding of lung field Class 2 severe obesity due to excess calories with serious comorbidity and body mass index (BMI) of 36.0 to 36.9 in adult ([facility]) Hyperkalemia Hyperpotassemia Lung nodules- Primary Other nonspecific abnormal finding of lung field Mild intermittent asthma without complication ([facility]) Unspecified asthma ESRD (end stage renal disease) on dialysis ([facility]) End stage renal disease documented in this encounter [facility] note* Diagnosis Pre-operative examination- Primary Preoperative examination, unspecified Mild intermittent asthma without complication ([facility]) Unspecified asthma Bipolar affective disorder, remission status unspecified ([facility]) Anemia, unspecified type Neuropathy Mononeuritis of unspecified site Gastroesophageal reflux disease, unspecified whether esophagitis present Type 2 diabetes, controlled, with neuropathy ([facility]) Type II or unspecified type diabetes mellitus with neurological manifestations, not stated as uncontrolled H/O gastric bypass Bariatric surgery status Essential hypertension Unspecified essential hypertension Mixed hyperlipidemia Personal history of DVT (deep vein thrombosis) Personal history of venous thrombosis and embolism Hypercoagulable state (HCC) Primary hypercoagulable state ESRD (end stage renal disease) ([facility]) End stage renal disease Pulmonary nodules Other nonspecific abnormal finding of lung field Class 2 severe obesity due to excess calories with serious comorbidity and body mass index (BMI) of 36.0 to 36.9 in adult ([facility]) Hyperkalemia Hyperpotassemia RLS (restless legs syndrome) Restless legs syndrome (RLS) Insomnia, unspecified type documented in this encounter [facility] note* Diagnosis Pre-operative examination- Primary Preoperative examination, unspecified Mild intermittent asthma without complication (HCC) Unspecified asthma Bipolar affective disorder, remission status unspecified ([facility]) Anemia, unspecified type Neuropathy Mononeuritis of unspecified site Gastroesophageal reflux disease, unspecified whether esophagitis present Type 2 diabetes, controlled, with neuropathy ([facility]) Type II or unspecified type diabetes mellitus with neurological manifestations, not stated as uncontrolled H/O gastric bypass Bariatric surgery status Essential hypertension Unspecified essential hypertension Mixed hyperlipidemia Personal history of DVT (deep vein thrombosis) Personal history of venous thrombosis and embolism Hypercoagulable state ([facility]) Primary hypercoagulable state ESRD (end stage renal disease) [facility] [facility]) End stage renal disease Pulmonary nodules Other nonspecific abnormal finding of lung field Class 2 severe obesity due to excess calories with serious comorbidity and body mass index (BMI) of 36.0 to 36.9 in adult ([facility]) Hyperkalemia Hyperpotassemia Anxiety Anxiety state, unspecified documented in this encounter [facility] note* Diagnosis Pre-operative examination- Primary Preoperative examination, unspecified Mild intermittent asthma without complication ([facility]) Unspecified asthma Bipolar affective disorder, remission status unspecified ([facility]) Anemia, unspecified type Neuropathy Mononeuritis of unspecified site Gastroesophageal reflux disease, unspecified whether esophagitis present Type 2 diabetes, controlled, with neuropathy ([facility]) Type II or unspecified type diabetes mellitus with neurological manifestations, not stated as uncontrolled H/O gastric bypass Bariatric surgery status Essential hypertension Unspecified essential hypertension Mixed hyperlipidemia Personal history of DVT (deep vein thrombosis) Personal history of venous thrombosis and embolism Hypercoagulable state (HCC) Primary hypercoagulable state ESRD (end stage renal disease) ([facility]) End stage renal disease Pulmonary nodules Other nonspecific abnormal finding of lung field Class 2 severe obesity due to excess calories with serious comorbidity and body mass index (BMI) of 36.0 to 36.9 in adult ([facility]) Hyperkalemia Hyperpotassemia Lung nodules- Primary Other nonspecific abnormal finding of lung field Abnormal CT scan, lung Other nonspecific abnormal finding of lung field [facility] Pre-operative examination- Primary Preoperative examination, unspecified Mild intermittent asthma without complication ([facility]) Unspecified asthma Bipolar affective disorder, remission status unspecified ([facility]) Anemia, unspecified type Neuropathy Mononeuritis of unspecified site Gastroesophageal reflux disease, unspecified whether esophagitis present Type 2 diabetes, controlled, with neuropathy ([facility]) Type II or unspecified type diabetes mellitus with neurological manifestations, not stated as uncontrolled H/O gastric bypass Bariatric surgery status Essential hypertension Unspecified essential hypertension Mixed hyperlipidemia Personal history of DVT (deep vein thrombosis) Personal history of venous thrombosis and embolism Hypercoagulable state ([facility]) Primary hypercoagulable state ESRD (end stage renal disease) ([facility]) End stage renal disease Pulmonary nodules Other nonspecific abnormal finding of lung field Class 2 severe obesity due to excess calories with serious comorbidity and body mass index (BMI) of 36.0 to 36.9 in adult ([facility]) Hyperkalemia Hyperpotassemia RLS (restless legs syndrome) Restless legs syndrome (RLS) Insomnia, unspecified type [facility] Additional Instructions take half of the labetalol, so will take 50 mg twice a day instead of 100 mg twice a day. Follow-up with your PCP in 2 days and your paper cutter in the next few days. [facility] Work Phone: Hospital Discharge instructions Additional Instructions Return tomorrow to have an ultrasound of your right leg to rule out a blood clot. Please follow-up with your PCP or orthopedic doctor.[facility] Work Phone: Hospital Discharge instructions Additional Instructions Call your orthopedic surgeon for close follow-up, recheck, repeat x-rays.[facility] Work Phone: Hospital Discharge instructions Additional Instructions Ice to all sore areas. Tylenol Motrin for pain. Your x-rays today showed no new injuries. Healing fractures of your tibia and fibula. Follow-up with your doctors as needed.[facility] Work Phone: Hospital Discharge instructionsAdditional Instructions Follow-up with your doctor to ensure you are improving. Your tests today were unremarkable. I do not know the specific cause of your pain. Follow-up with your doctor for further evaluation. May want to consider discussing with them outpatient stress testing. Return the emergency department if you are feeling a lot worse.[facility] Work Phone: Reason for referral (narrative)* Diagnostic Procedure Only (Routine) - Pending Review Specialty Diagnoses / Procedures Referred By Allison t Referred To Contact BR IMAGING Diagnoses Screening breast examination Procedures MARYLU SCREENING SCREENING MAMMOGRAPHY BI 2-VIEW BREAST INC CAD Ignacio Cheatham MD [address] [place] [address] [facility] [address] [place] [phone] Referral ID Status Reason Start Date Expiration Date Visits Requested Visits Authorized [id number] Pending Review Auto-Generat ed Referral 06/26/2021 07/26/2022 1 1 [facility] for referral (narrative)* Outpatient Procedure (Routine) - Pending Review Specialty Diagnoses / Procedures Referred By Ximenaac t Referred To Contact [facility] Diagnoses CKD (chronic kidney disease) stage 5, GFR less than 15 ml/min (HCC) Procedures UPPER EXT MAP FOR DIALYSIS ACCESS [facility] VESSEL MAPPING HEMO ACCESS Jonathan Valenzuela MD [address] [place] [address] [facility] [address] [place] [address] Referral ID Status Reason Start Date Expiration Date Visits Requested Visits Authorized [id number] Pending Review Auto-Generat ed Referral 08/13/2021 08/13/2022 1 1 [facility] for referral (narrative)* Diagnostic Procedure Only (Urgent) - Closed Specialty Diagnoses / Procedures Referred By Ximenaac t Referred To Contact [facility]LECULAR [facility] FUNCTIONAL [facility]AG[facility] Diagnoses Pre-transplant evaluation for chronic kidney disease Pre-operative cardiovascular examination Encounter for preprocedural cardiovascular examination Procedures NM CARDIAC PERF STRESS/PHARM MYOCARDIAL SPECT MULTIPLE STUDIES Luis Mejia MD [address] [place] [address] [facility] [address] [place] [address] Referral ID Status Reason Start Date Expiration Date V isits Requested Visits Authorized [id number] Closed Auto-Generated Referral Patient Cleared - INN Insurance Found 07/19/2021 08/17/2021 1 1 [facility] for referral (narrative)* Diagnostic Procedure Only (Routine) - Pending Review Specialty Diagnoses / Procedures Referred By Contac t Referred To Contact XR IMAGING Diagnoses CKD (chronic kidney disease) stage 5, GFR less than 15 ml/min (HCC) Procedures XR CHEST 1V FRONTAL RADIOLOGIC EXAM CHEST SINGLE VIEW Goldy Hunter DO [address] [place] [address] Xr Imaging Referral ID Status Reason Start Date Expiration Date Visits Requested Visits Authorized [id number] Pending Review Auto-Generat ed Referral 08/05/2022 09/04/2023 1 1 [facility] for referral (narrative)* Diagnostic Procedure Only (Routine) - Closed Specialty Diagnoses / Procedures Referred By Contac t Referred To Contact XR IMAGING Diagnoses Pain of right lower extremity Stress fracture of right tibia, initial encounter Procedures XR TIBIA FIBULA 2V AP/LAT RIGHT RADIOLOGIC EXAMINATION TIBIA & FIBULA 2 VIEWS Reagan Riggs MD [address] [place] [address] Xr Imaging [facility]95 Referral ID Status Reason Start Date Expiration Date V isits Requested Visits Authorized [id number] Closed Auto-Generate d Referral 11/10/2022 12/10/2023 1 1 [facility] for referral (narrative)* Diagnostic Procedure Only (Routine) - Pending Review Specialty Diagnoses / Procedures Referred By Contac t Referred To Contact XR IMAGING Diagnoses Stress fracture of right tibia, initial encounter Procedures XR TIBIA FIBULA 2V AP/LAT RIGHT RADIOLOGIC EXAMINATION TIBIA & FIBULA 2 VIEWS Reagan Riggs MD [address] [place] [address] [place] [address] Referral ID Status Reason Start Date Expiration Date Visits Requested Visits Authorized [id number] Pending Review Auto-Generat ed Referral 01/09/2024 1 1 [facility] for referral (narrative)* Diagnostic Procedure Only (Routine) - Closed Specialty Diagnoses / Procedures Referred By Contac t Referred To Contact XR IMAGING Diagnoses Right elbow pain Procedures XR ELBOW GENERAL 2V AP/LAT RIGHT RADEX ELBOW 2 VIEWS Ignacio Cheatham MD [address] [place] [address] [place] [address] Referral ID Status Reason Start Date Expiration Date V isits Requested Visits Authorized [id number] Closed Auto-Generate d Referral 08/11/2022 09/10/2023 1 1 [facility] for referral (narrative)* Diagnostic Procedure Only (Routine) - Closed Specialty Diagnoses / Procedures Referred By Contac t Referred To Contact XR IMAGING Diagnoses Stress fracture of right tibia, initial encounter Procedures XR TIBIA FIBULA 2V AP/LAT RIGHT RADIOLOGIC EXAMINATION TIBIA & FIBULA 2 VIEWS Reagan Riggs MD [address] [facility] [place] [address] [place] [address] Referral ID Status Reason Start Date Expiration Date V isits Requested Visits Authorized [id number] Closed Auto-Generate d Referral 12/10/2022 01/09/2024 1 1 [facility] for referral (narrative)* Diagnostic Procedure Only (Routine) - Closed Specialty Diagnoses / Procedures Referred By Contac t Referred To Contact XR IMAGING Diagnoses Chronic pain of left knee Procedures XR KNEE GENERAL 4V AP BOTH/PA BOTH/LAT/MERC LEFT RADIOLOGIC EXAM KNEE COMPLETE 4/MORE VIEWS Ignacio Cheatham MD [address] [place] [address] [place] [address] Referral ID Status Reason Start Date Expiration Date V isits Requested Visits Authorized [id number] Closed Auto-Generate d Referral 03/21/2022 04/20/2023 1 1 [facility] for referral (narrative)* Diagnostic Procedure Only (Routine) - Closed Specialty Diagnoses / Procedures Referred By Contac t Referred To Contact XR IMAGING Diagnoses Pain of right lower extremity Stress fracture of right tibia, initial encounter Procedures XR TIBIA FIBULA 2V AP/LAT RIGHT RADIOLOGIC EXAMINATION TIBIA & FIBULA 2 VIEWS Reagan Riggs MD [address] [place] [address] Xr Imaging [facility]95 Referral ID Status Reason Start Date Expiration Date V isits Requested Visits Authorized [id number] Closed Auto-Generate d Referral 11/10/2022 12/10/2023 1 1 [facility] for referral (narrative)* Diagnostic Procedure Only (Routine) - Closed Specialty Diagnoses / Procedures Referred By Contac t Referred To Contact BR IMAG[facility] Diagnoses Screening breast examination Procedures MARYLU SCREENING SCREENING MAMMOGRAPHY BI 2-VIEW BREAST INC CAD Ignacio Cheatham MD [address] [place] [address] [facility] Imaging [address] [place] [address] Referral ID Status Reason Start Date Expiration Date V isits Requested Visits Authorized [id number] Closed Auto-Generate d Referral 06/26/2021 07/26/2022 1 1 [facility] for referral (narrative)* Diagnostic Procedure Only (Routine) - Closed Specialty Diagnoses / Procedures Referred By Contac t Referred To Contact XR IMAGING Diagnoses CKD (chronic kidney disease) stage 5, GFR less than 15 ml/min (HCC) Procedures XR CHEST 1V FRONTAL RADIOLOGIC EXAM CHEST SINGLE VIEW Goldy Hunter DO [address] [place] [address] Xr Imaging [facility]95 Referral ID Status Reason Start Date Expiration Date V isits Requested Visits Authorized [id number] Closed Auto-Generate d Referral 08/05/2022 09/04/2023 1 1 [facility] for referral (narrative)* Outpatient Procedure (Routine) - Pending Review Specialty Diagnoses / Procedures Referred By Contac t Referred To Contact [facility] Diagnoses Neuropathy Type 2 diabetes, controlled, with neuropathy (HCC) Open wound of toe of right foot Diminished pulses in lower extremity Hammertoe, bilateral Procedures PVR ANK PRESS GAYATHRI [facility] LAB NON-INVAS PHYSIOLOGIC STD EXTREMITY ART 2 LEVEL [address] [place] [address] [facility] [address] [place] [address] Referral ID Status Reason Start Date Expiration Date Visits Requested Visits Authorized [id number] Pending Review Auto-Generat ed Referral 05/15/2023 05/14/2024 1 1 * Diagnostic Procedure Only (Routine) - Pending Review Specialty Diagnoses / Procedures Referred By Allison beasley Referred To Contact XR IMAGING Diagnoses Neuropathy Type 2 diabetes, controlled, with neuropathy (HCC) Open wound of toe of right foot Diminished pulses in lower extremity Hammertoe, bilateral Procedures XR FOOT GENERAL 3V AP/LAT/OBL BILATERAL RADEX FOOT COMPLETE MINIMUM 3 VIEWS Frank [address] [place] [address] Xr Imaging [facility]95 Referral ID Status Reason Start Date Expiration Date Visits Requested Visits Authorized [id number] Pending Review Auto-Generat ed Referral 05/15/2023 06/13/2024 1 1 [facility] for referral (narrative)* Diagnostic Procedure Only (Routine) - Pending Review Specialty Diagnoses / Procedures Referred By Allison t Referred To Contact BR IMAGING Diagnoses Encounter for screening mammogram for breast cancer Procedures MARYLU SCREENING SCREENING MAMMOGRAPHY BI 2-VIEW BREAST INC CAD Ignacio Cheatham MD [address] [place] [address] [facility] Imaging [address] [place] [address] Referral ID Status Reason Start Date Expiration Date Visits Requested Visits Authorized [id number] Pending Review Auto-Generat ed Referral 05/13/2023 06/11/2024 1 1 [facility] for referral (narrative)* Diagnostic Procedure Only (Routine) - Pending Review Specialty Diagnoses / Procedures Referred By Contac t Referred To Contact XR IMAGING Diagnoses 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 Procedures XR KNEE LIMITED 2V AP/LAT RIGHT RADIOLOGIC EXAMINATION KNEE 1/2 VIEWS Dorene Murillo MD [address] [place] [address] [place] [address] Referral ID Status Reason Start Date Expiration Date Visits Requested Visits Authorized [id number] Pending Review Auto-Generat ed Referral 07/05/2023 08/03/2024 1 1 T [facility] for referral (narrative)* Diagnostic Procedure Only (Routine) - New Request Specialty Diagnoses / Procedures Referred By Contac t Referred To Contact XR IMAGING Diagnoses 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 Procedures XR KNEE LIMITED 2V AP/LAT RIGHT RADIOLOGIC EXAMINATION KNEE 1/2 VIEWS Dorene Murillo MD [address] [place] [address] [place] [address] Referral ID Status Reason Start Date Expiration Date Visits Requested Visits Authorized [id number] New Request Auto-Generat ed Referral 09/14/2023 10/13/2024 1 1 T [facility] for referral (narrative)* Diagnostic Procedure Only (Urgent) - Closed Specialty Diagnoses / Procedures Referred By Contac t Referred To Contact XR IMAGING Diagnoses Acute right ankle pain Procedures XR ANKLE GENERAL 3V AP/LAT/OBL RIGHT RADEX ANKLE COMPLETE MINIMUM 3 VIEWS Sha Ray APRN.BENEFITS ADMINISTRATOR [address] [place] [address] [place] [address] Referral ID Status Reason Start Date Expiration Date V isits Requested Visits Authorized [id number] Closed Auto-Generate d Referral 03/17/2023 04/15/2024 1 1 * Diagnostic Procedure Only (Urgent) - Closed Specialty Diagnoses / Procedures Referred By Contac t Referred To Contact XR IMAGING Diagnoses Foot pain, right Procedures XR FOOT GENERAL 3V AP/LAT/OBL RIGHT RADEX FOOT COMPLETE MINIMUM 3 VIEWS Sha Ray APRN.BENEFITS ADMINISTRATOR [address] [place] [address] [place] [address] Referral ID Status Reason Start Date Expiration Date V isits Requested Visits Authorized [id number] Closed Auto-Generate d Referral 03/17/2023 04/15/2024 1 1 [facility] Procedure Only (Routine) - Closed Specialty Diagnoses / Procedures Referred By Contac t Referred To Contact XR IMAGING Diagnoses Rib pain on right side Procedures XR RIBS/CHEST 3V AP RIB/OBLS/CXR RT X-RAY RIBS, CHEST 3+ VW Ignacio Cheatham MD [address] [place] [address] [place] [address] Referral ID Status Reason Start Date Expiration Date V isits Requested Visits Authorized [id number] Closed Auto-Generate d Referral 10/31/2020 11/30/2021 1 1 * Diagnostic Procedure Only (Routine) - Closed Specialty Diagnoses / Procedures Referred By Contac t Referred To Contact XR IMAGING Diagnoses Neck pain Procedures XR CERV OTHER 4V AP/LAT/OBL X-RAY NECK MINIMUM 4 VIEWS Ignacio Cheatham MD [address] [place] [address] [place] [address] Referral ID Status Reason Start Date Expiration Date V isits Requested Visits Authorized Closed Auto-Generate d Referral 10/31/2020 11/30/2021 1 1 [facility] for referral (narrative)* Diagnostic Procedure Only (Routine) - Authorized Specialty Diagnoses / Procedures Referred By Contac t Referred To Contact [facility] Diagnoses ACSSIE (obstructive sleep apnea) Procedures HOME SLEEP APNEA TEST (HSAT) SLEEP STD AIRFLOW HRT RATE&O2 SAT EFFORT UNATT Ignacio Cheatham MD [address] [place] [address] [facility] [place] [address] [place] [id number] Referral ID Status Reason Start Date Expiration Date Visits Requested Visits Authorized [id number] Authorized Auto-Generat ed Referral 4 03/01/2024 1 1 * Consult, Test, Treat (Routine) - Authorized Specialty Diagnoses / Procedures Referred By Allison t Referred To Contact Endocrinology Diagnoses Type 2 diabetes, controlled, with neuropathy (HCC) Procedures CONSULT TO ENDOCRINOLOGY OFFICE/OUTPATIENT NEW HIGH MDM 60 MINUTES Ignacio Cheatham MD [address] [place] [address] Referral ID Status Reason Start Date Expiration Date Visits Requested Visits Authorized [id number] Authorized PCP Requested Referral 4 12/24/2024 1 1 [facility] for referral (narrative)* Diagnostic Procedure Only (Routine) - New Request Specialty Diagnoses / Procedures Referred By Allison t Referred To Contact XR IMAGING Diagnoses 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 Procedures XR KNEE LIMITED 2V AP/LAT RIGHT RADIOLOGIC EXAMINATION KNEE 1/2 VIEWS Dorene Murillo MD [address] [place] [address] Xr Imaging [facility]95 Referral ID Status Reason Start Date Expiration Date Visits Requested Visits Authorized [id number] New Request Auto-Generat ed Referral 01/18/2025 1 1 [facility] for referral (narrative)* Outpatient Procedure (Routine) - New Request Specialty Diagnoses / Procedures Referred By Contac t Referred To Contact [facility] Diagnoses Stenosis of arteriovenous graft, 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[facility]) Procedures US A/V FISTULA GRAFT UNL VAS LAB DUPLEX SCAN HEMODIALYSIS ACCESS Saira Jackson DO [address] [place] [address] [facility] [place] [address] [place] [address] Referral ID Status Reason Start Date Expiration Date Visits Requested Visits Authorized [id number] New Request Auto-Generate d Referral Financial Clearance Required - Self Pay 4 02/08/2025 1 1 [facility] for referral (narrative)No reason for [facility] Work Phone: Reason for visit Narrative* Diagnostic Procedure Only (Routine) - Closed Specialty Diagnoses / Procedures Referred By Allison t Referred To Contact XR IMAGING Diagnoses Right elbow pain Procedures XR ELBOW GENERAL 2V AP/LAT RIGHT RADEX ELBOW 2 VIEWS Ignacio Cheatham MD [address] [place] [address] Xr Imaging [facility]95 Referral ID Status Reason Start Date Expiration Date V isits Requested Visits Authorized [id number] Closed Auto-Generate d Referral 08/11/2022 09/10/2023 1 1 [facility] for visit Narrative* Diagnostic Procedure Only (Routine) - Closed Specialty Diagnoses / Procedures Referred By Allison t Referred To Contact XR IMAGING Diagnoses Stress fracture of right tibia, initial encounter Procedures XR TIBIA FIBULA 2V AP/LAT RIGHT RADIOLOGIC EXAMINATION TIBIA & FIBULA 2 VIEWS Reagan Riggs MD [address] [place] [address] [place] [address] Referral ID Status Reason Start Date Expiration Date V isits Requested Visits Authorized [id number] Closed Auto-Generate d Referral 12/10/2022 01/09/2024 1 1 [facility] for visit Narrative* Diagnostic Procedure Only (Routine) - Closed Specialty Diagnoses / Procedures Referred By Contac t Referred To Contact XR IMAGING Diagnoses Chronic pain of left knee Procedures XR KNEE GENERAL 4V AP BOTH/PA BOTH/LAT/MERC LEFT RADIOLOGIC EXAM KNEE COMPLETE 4/MORE VIEWS Ignacio Cheatham MD [address] [place] [address] [place] [address] Referral ID Status Reason Start Date Expiration Date V isits Requested Visits Authorized [id number] Closed Auto-Generate d Referral 03/21/2022 04/20/2023 1 1 [facility] for visit Narrative* Diagnostic Procedure Only (Routine) - Closed Specialty Diagnoses / Procedures Referred By Contac t Referred To Contact XR IMAGING Diagnoses Pain of right lower extremity Stress fracture of right tibia, initial encounter Procedures XR TIBIA FIBULA 2V AP/LAT RIGHT RADIOLOGIC EXAMINATION TIBIA & FIBULA 2 VIEWS Reagan Riggs MD [address] [place] [address] [place] [address] Referral ID Status Reason Start Date Expiration Date V isits Requested Visits Authorized [id number] Closed Auto-Generate d Referral 11/10/2022 12/10/2023 1 1 [facility] for visit Narrative* Diagnostic Procedure Only (Routine) - Closed Specialty Diagnoses / Procedures Referred By Contac t Referred To Contact BR IMAGING Diagnoses Screening breast examination Procedures MARYLU SCREENING SCREENING MAMMOGRAPHY BI 2-VIEW BREAST INC CAD Ignacio Cheatham MD [address] [place] [address] [facility] Imaging [address] [place] [address] Referral ID Status Reason Start Date Expiration Date V isits Requested Visits Authorized [id number] Closed Auto-Generate d Referral 06/26/2021 07/26/2022 1 1 [facility] for visit Narrative* Diagnostic Procedure Only (Routine) - Closed Specialty Diagnoses / Procedures Referred By Contac t Referred To Contact XR IMAGING Diagnoses CKD (chronic kidney disease) stage 5, GFR less than 15 ml/min (HCC) Procedures XR CHEST 1V FRONTAL RADIOLOGIC EXAM CHEST SINGLE VIEW Goldy Hunter DO [address] [place] [id number] [place] [address] Referral ID Status Reason Start Date Expiration Date V isits Requested Visits Authorized [id number] Closed Auto-Generate d Referral 08/05/2022 09/04/2023 1 1 [facility] for visit Narrative* Diagnostic Procedure Only (Urgent) - Closed Specialty Diagnoses / Procedures Referred By Contac t Referred To Contact XR IMAGING Diagnoses Foot pain, right Procedures XR FOOT GENERAL 3V AP/LAT/OBL RIGHT RADEX FOOT COMPLETE MINIMUM 3 VIEWS Sha Ray, CUSTOMS ENTRY CLERK.BENEFITS ADMINISTRATOR [address] [place] [id number] Xr Imaging [facility]95 Referral ID Status Reason Start Date Expiration Date V isits Requested Visits Authorized [id number] Closed Auto-Generate d Referral 03/17/2023 04/15/2024 1 1 [facility] for visit Narrative* Diagnostic Procedure Only (Urgent) - Closed Specialty Diagnoses / Procedures Referred By Contac t Referred To Contact XR IMAGING Diagnoses Foot pain, left Procedures XR FOOT GENERAL 3V AP/LAT/OBL LEFT RADEX FOOT COMPLETE MINIMUM 3 VIEWS Jimmy Rabago CUSTOMS ENTRY CLERK.BENEFITS ADMINISTRATOR [address] [place] [address] Xr Imaging [facility]95 Referral ID Status Reason Start Date Expiration Date V isits Requested Visits Authorized [id number] Closed Auto-Generate d Referral 02/18/2022 03/20/2023 1 1 [facility] for visit Narrative* Diagnostic Procedure Only (Routine) - Closed Specialty Diagnoses / Procedures Referred By Contac t Referred To Contact XR IMAGING Diagnoses Rib pain on right side Procedures XR RIBS/CHEST 3V AP RIB/OBLS/CXR RT X-RAY RIBS, CHEST 3+ VW Ignacio Cheatham MD [address] [place] [address] [place] [address] Referral ID Status Reason Start Date Expiration Date V isits Requested Visits Authorized [id number] Closed Auto-Generate d Referral 10/31/2020 11/30/2021 1 1 [facility] Summary Purpose Family History No Family History Records Found Relationship Condition Age at Onset Recorded Date/T nora mother Cardiac disease Unknown Hypertension Unknown Diabetes mellitus Unknown Kidney disorder Unknown father Diabetes mellitus Unknown Advance Directives No Advanced Directives Records Found Date Activated Date Inactivated Comments 07/29/2023 4:39 PM 08/07/2023 4:53 PM Question Answer Comments Full Code Order Discussed With: Patient Date Activated Date Inactivated Comments 06/11/2023 9:39 AM 06/17/2023 10:23 PM Question Answer Comments Full Code Order Discussed With: Patient Date Activated Date Inactivated Comments 07/31/2022 9:45 PM 08/04/2022 8:52 PM Question Answer Comments Full Code Order Discussed With: Patient Date Activated Date Inactivated Comments 06/11/2023 9:39 AM 06/17/2023 10:23 PM Date Activated Date Inactivated Comments 07/31/2022 9:45 PM 08/04/2022 8:52 PM Date Activated Date Inactivated Comments 06/11/2023 9:39 AM Documents on File Type Date Recorded 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 Advance Directive(s) Advance Directive(s) 05/03/2018 10:46 PM Advance Directive(s) 07/02/2015 7:09 AM Documents on File Type Date Recorded 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 Advance Directive(s) Advance Directive(s) 05/03/2018 10:46 PM Advance Directive(s) 07/02/2015 7:09 AM Advance Directive Response Recorded Date/ Time Living Will No July 29, 2021 9 :12pm Power of Correctional Maintenance Technician No July 29, 2021 9:12pm Latest Code Status on File Code Status Date Activated Date Inactivated Comments Full Code 07/31/2022 9:45 PM Full Code Order Discussed With: Patient Latest Code Status on File Code Status Date Activated Date Inactivated Comments Full Code 07/31/2022 9:45 PM 08/04/2022 8:52 PM Latest Code Status on File Code Status Date Activated Date Inactivated Comments Full Code 07/31/2022 9:45 PM 08/04/2022 8:52 PM Advance Directive Response Recorded Date/ Time Living Will No September 07, 2022 1 :49pm Power of Correctional Maintenance Technician No September 07, 2022 1:49pm Latest Code Status on File Code Status Date Activated Date Inactivated Comments Full Code 07/31/2022 9:45 PM 08/04/2022 8:52 PM Question Answer Comments Full Code Order Discussed With: Patient Advance Directive Response Recorded Date/ Time Living Will No September 10, 2022 4:13am Power of Correctional Maintenance Technician No September 10 4:13am Advance Directive Response Recorded Date/ Time Name of Medical Power of Correctional Maintenance Technician HALLE BOSS October 15, 2022 5:33pm Living Will No October 15 5:33pm Power of Correctional Maintenance Technician Yes October 15 023 5:33pm Latest Code Status on File Code Status Date Activated Date Inactivated Comments Full Code 07/31/2022 9:45 PM 08/04/2022 8:52 PM Question Answer Comments Full Code Order Discussed With: Patient Advance Directive Response Recorded Date/ Time Name of Medical Power of Correctional Maintenance Technician halle barragan, mell sanchez October 30, 2022 7:22am Living Will Yes October 30 7:22am Power of Correctional Maintenance Technician Yes October 30 023 7:22am Name of Medical Power of Correctional Maintenance Technician HALLEYoanna BARRAGAN October 15, 2022 5:33pm Latest Code Status on File Code Status Date Activated Date Inactivated Comments Full Code 07/31/2022 9:45 PM 08/04/2022 8:52 PM Question Answer Comments Full Code Order Discussed With: Patient Advance Directive Response Recorded Date/ Time Name of Medical Power of Correctional Maintenance Technician mell lundy October 30, 2022 6:22am Name of Medical Power of Correctional Maintenance Technician ALONDRA MARYS- SISTER January 13, 2023 12:35pm Living Will Yes January 13, 2 023 12:35pm Power of Correctional Maintenance Technician Yes January 13, 2023 12:35pm Name of Medical Power of Correctional Maintenance Technician HALLE BOSS October 15, 2022 4:33pm Advance Directive Response Recorded Date/ Time Name of Medical Power of Correctional Maintenance Technician mell lundy October 30, 2022 6:22am Name of Medical Power of Correctional Maintenance Technician ALONDRA BOSS- SISTER January 13, 2023 12:35pm Name of Medical Power of Correctional Maintenance Technician Halle Marys January 15, 2023 1:53pm Living Will Yes January 15, 2 023 1:53pm Power of Correctional Maintenance Technician Yes January 15, 2023 1:53pm Name of Medical Power of Correctional Maintenance Technician HALLE BOSS October 15, 2022 4:33pm Advance Directive Response Recorded Date/ Time Name of Medical Power of Correctional Maintenance Technician halle barragan, mell rta laura October 30, 2022 6:22am Name of Medical Power of Correctional Maintenance Technician ALONDRA MARYS- SISTER January 13, 2023 12:35pm Name of Medical Power of Correctional Maintenance Technician Halle Boss January 15, 2023 1:53pm Living Will No January 19, 2 023 7:16am Power of Correctional Maintenance Technician No January 19, 2023 7:16am Name of Medical Power of Correctional Maintenance Technician HALLE BOSS October 15, 2022 4:33pm Advance Directive Response Recorded Date/ Time Name of Medical Power of Correctional Maintenance Technician halleyoanna barragan, be rta sanchez October 30, 2022 6:22am Name of Medical Power of Correctional Maintenance Technician ALONDRA MARYS- SISTER January 13, 2023 12:35pm Name of Medical Power of Correctional Maintenance Technician Halle Boss January 15, 2023 1:53pm Living Will No January 19 2 023 4:31pm Power of Correctional Maintenance Technician No January 19, 2023 4:31pm Name of Medical Power of Correctional Maintenance Technician HALLE BOSS October 15, 2022 4:33pm Advance Directive Response Recorded Date/ Time Name of Medical Power of Correctional Maintenance Technician halleyoanna barragan, be rta sanchez October 30, 2022 6:22am Name of Medical Power of Correctional Maintenance Technician ALONDRA MARYS- SISTER January 13, 2023 12:35pm Name of Medical Power of Correctional Maintenance Technician Halle Boss January 15, 2023 1:53pm Living Will No February 04 10:52am Power of Correctional Maintenance Technician No February 04, 2023 10:52am Name of Medical Power of Correctional Maintenance Technician HALLE BOSS October 15, 2022 4:33pm Advance Directive Response Recorded Date/ Time Name of Medical Power of Correctional Maintenance Technician ALONDRA HERNANDEZS- SISTER January 13, 2023 12:35pm Name of Medical Power of Correctional Maintenance Technician Halle Boss January 15, 2023 1:53pm Name of Medical Power of Correctional Maintenance Technician SISTER HALLE March 09, 2023 9:37am Living Will Yes March 09 9:37am Power of Correctional Maintenance Technician Yes March 09 9:37am Latest Code Status on File Code Status Date Activated Date Inactivated Comments Full Code 07/31/2022 9:45 PM 08/04/2022 8:52 PM Question Answer Comments Full Code Order Discussed With: Patient Date Activated Date Inactivated Comments 07/31/2022 9:45 PM 08/04/2022 8:52 PM Question Answer Comments Full Code Order Discussed With: Patient Date Activated Date Inactivated Comments 07/31/2022 9:45 PM 08/04/2022 8:52 PM Advance Directive Response Recorded Date/ Time Name of Medical Power of Correctional Maintenance Technician SISTER HALLE March 09, 2023 10:37am Living Will No June 04, 2023 10:31am Power of Correctional Maintenance Technician No June 03 10:31am Advance Directive Response Recorded Date/ Time Name of Medical Power of Correctional Maintenance Technician SISTER HALLE March 09, 2023 10:37am Name of Medical Power of Correctional Maintenance Technician Halle Barragan June 29, 2023 7:45pm Living Will Yes June 29, 2023 7:45pm Power of Correctional Maintenance Technician Yes June 28 7:45pm Date Activated Date Inactivated Comments 06/11/2023 9:39 AM 06/17/2023 10:23 PM Date Activated Date Inactivated Comments 07/31/2022 9:45 PM 08/04/2022 8:52 PM Question Answer Comments Full Code Order Discussed With: Patient Date Activated Date Inactivated Comments 07/29/2023 4:39 PM 08/07/2023 4:53 PM Date Activated Date Inactivated Comments 06/11/2023 9:39 AM 06/17/2023 10:23 PM Date Activated Date Inactivated Comments 07/31/2022 9:45 PM 08/04/2022 8:52 PM Question Answer Comments Full Code Order Discussed With: Patient Advance Directive Response Recorded Date/ Time Do you have a Healthcare Power of Correctional Maintenance Technician? Yes September 06, 2024 6:43pm Reason for Referral Specialty Diagnoses / Procedures Referred By Allison t Referred To Contact CT IMAGING Diagnoses Pre-transplant evaluation for kidney transplant Procedures CT ABD/PEL WO IVCON CT ABD & PELVIS W/O CONTRAST Linda Livingston MD [address] [place] [address] Ct Imaging Referral ID Status Reason Start Date Expiration Date V isits Requested Visits Authorized [id number] Closed Auto-Generated Referral Patient Cleared - INN Insurance Found 06/20/2021 07/19/2021 1 1 Specialty Diagnoses / Procedures Referred By Contac t Referred To Contact Vascular Surgery Diagnoses Stage 5 chronic kidney disease not on chronic dialysis (HCC) Procedures CONSULT TO VASCULAR SURGERY OFFICE/OUTPATIENT [facility] 60-74 MINUTES Fab Cochran, CUSTOMS ENTRY CLERK.BENEFITS ADMINISTRATOR [address] [place] [address] Referral ID Status Reason Start Date Expiration Date Visits Requested Visits Authorized [id number] Authorized PCP Requested Referral 08/01/2021 07/30/2022 1 1 Specialty Diagnoses / Procedures Referred By Contac t Referred To Contact CT IMAGING Diagnoses Pre-transplant evaluation for chronic kidney disease Lung nodules Procedures CT CHEST WO IVCON DIAGNOSTIC COMPUTED TOMOGRAPHY THORAX W/O CNTRST Luis Mejia MD [address] [place] [address] Ct Imaging Referral ID Status Reason Start Date Expiration Date V isits Requested Visits Authorized [id number] Closed Auto-Generated Referral Patient Cleared - INN Insurance Found 07/19/2021 08/17/2021 1 1 Specialty Diagnoses / Procedures Referred By Contac t Referred To Contact Diagnoses Poorly controlled type 2 diabetes mellitus (HCC) Procedures CONSULT TO DIABETES EDUCATION OFFICE/OUTPATIENT [facility] 60-74 MINUTES Rojelio Clark MD [address] [place] [address] Referral ID Status Reason Start Date Expiration Date Visits Requested Visits Authorized [id number] Authorized PCP Requested Referral 10/02/2021 10/02/2022 1 1 Specialty Diagnoses / Procedures Referred By Contac t Referred To Contact Nutrition Diagnoses Poorly controlled type 2 diabetes mellitus (HCC) Procedures CONSULT TO NUTRITION THERAPY OFFICE/OUTPATIENT [facility] 60-74 MINUTES Rojelio Clark MD [address] [place] [address] Referral ID Status Reason Start Date Expiration Date Visits Requested Visits Authorized [id number] Authorized PCP Requested Referral 10/28/2021 10/28/2022 1 1 Specialty Diagnoses / Procedures Referred By Contac t Referred To Contact Nutrition Diagnoses CKD (chronic kidney disease) stage 5, GFR less than 15 ml/min (HCC) Procedures CONSULT TO NUTRITION THERAPY OFFICE/OUTPATIENT [facility] 60-74 MINUTES Fab Cochran, CUSTOMS ENTRY CLERK.BENEFITS ADMINISTRATOR [address] [place] [phone] Referral ID Status Reason Start Date Expiration Date Visits Requested Visits Authorized [id number] Authorized PCP Requested Referral 11/27/2021 11/27/2022 1 1 Specialty Diagnoses / Procedures Referred By Contac t Referred To Contact Diagnoses Anemia of renal disease Procedures CONSULT TO HEMATOLOGY/ONCOLOGY OFFICE/OUTPATIENT [facility] 60-74 MINUTES Fab Cochran, CUSTOMS ENTRY CLERK.BENEFITS ADMINISTRATOR [id number] [place] [phone] Referral ID Status Reason Start Date Expiration Date Visits Requested Visits Authorized [id number] Authorized PCP Requested Referral 12/05/2021 12/04/2022 1 1 Specialty Diagnoses / Procedures Referred By Contac t Referred To Contact Podiatry Diagnoses Foot pain, left Procedures CONSULT TO PODIATRY OFFICE/OUTPATIENT [facility] 60-74 MINUTES Jimmy Rabago, PATRICE.BENEFITS ADMINISTRATOR [address] [place] [address] Referral ID Status Reason Start Date Expiration Date Visits Requested Visits Authorized [id number] Authorized PCP Requested Referral 2 02/18/2023 1 1 Specialty Diagnoses / Procedures Referred By Contac t Referred To Contact XR IMAGING Diagnoses Foot pain, left Procedures XR FOOT GENERAL 3V AP/LAT/OBL LEFT RADEX FOOT COMPLETE MINIMUM 3 VIEWS Jimmy Rabago APRN.BENEFITS ADMINISTRATOR [address] [place] [address] Xr Imaging Referral ID Status Reason Start Date Expiration Date V isits Requested Visits Authorized [id number] Closed Auto-Generate d Referral 02/18/2022 03/20/2023 1 1 Specialty Diagnoses / Procedures Referred By Contac t Referred To Contact CT IMAGING Diagnoses Chronic pain of left knee Procedures CT KNEE WO IVCON LEFT CT LOWER EXTREMITY W/O CONTRAST MATERIAL Dakota Rjaput MD [address] [address] [address] Imaging Referral ID Status Reason Start Date Expiration Date Visits Requested Visits Authorized [id number] Pending Review Auto-Generat ed Referral 06/12/2022 07/12/2023 1 1 Specialty Diagnoses / Procedures Referred By Contac t Referred To Contact Orthopedics Diagnoses Pain of right lower extremity Procedures CONSULT TO ORTHOPAEDICS OFFICE/OUTPATIENT [facility] 60-74 MINUTES Ignacio Cheatham MD [address] [place] [address] Referral ID Status Reason Start Date Expiration Date Visits Requested Visits Authorized [id number] Authorized PCP Requested Referral 10/20/2022 10/20/2023 1 1 Specialty Diagnoses / Procedures Referred By Contac t Referred To Contact Pain Management Diagnoses Intervertebral disc stenosis of neural canal of lumbar region Procedures CONSULT TO PAIN MGT OFFICE/OUTPATIENT [facility] 60-74 MINUTES Reagan Riggs MD [address] [place] [address] Referral ID Status Reason Start Date Expiration Date Visits Requested Visits Authorized [id number] Authorized PCP Requested Referral 3 12/15/2023 1 1 Specialty Diagnoses / Procedures Referred By Contac t Referred To Contact CT IMAGING Diagnoses Lung nodules Procedures CT CHEST WO IVCON DIAGNOSTIC COMPUTED TOMOGRAPHY THORAX W/O CNTRST Ignacio Cheatham MD [address] [place] [address] [place] [id number] Referral ID Status Reason Start Date Expiration Date Visits Requested Visits Authorized [id number] Pending Review Auto-Generat ed Referral 10/05/2023 05/05/2024 1 1 Specialty Diagnoses / Procedures Referred By Contac t Referred To Contact Vascular Surgery Diagnoses ESRD (end stage renal disease) (HCC) Procedures CONSULT TO VASCULAR SURGERY OFFICE/OUTPATIENT [facility] MDM 60 MINUTES Tresa Marcum APRN.NOY [address] [place] [address] Referral ID Status Reason Start Date Expiration Date Visits Requested Visits Authorized [id number] Authorized PCP Requested Referral 4 12/10/2024 1 1 Specialty Diagnoses / Procedures Referred By Contac t Referred To Contact Diagnoses CASSIE (obstructive sleep apnea) Procedures CONSULT TO SLEEP MEDICINE - ADULT OFFICE/OUTPATIENT [facility] 60 MINUTES Sha Myrick MD [address] [place] [id number] Referral ID Status Reason Start Date Expiration Date Visits Requested Visits Authorized [id number] Authorized PCP Requested Referral 4 01/11/2025 1 1 Specialty Diagnoses / Procedures Referred By Contac t Referred To Contact Pain Management Diagnoses Spinal stenosis of lumbar region, unspecified whether neurogenic claudication present Procedures CONSULT TO PAIN MGT OFFICE/OUTPATIENT [facility] 60 MINUTES Ignacio Cheatham MD [address] [place] [address] Referral ID Status Reason Start Date Expiration Date Visits Requested Visits Authorized [id number] Authorized PCP Requested Referral 03/25/2024 03/25/2025 1 1 Specialty Diagnoses / Procedures Referred By Contac t Referred To Contact Neurology Diagnoses TIA (transient ischemic attack) Procedures CONSULT TO NEUROLOGY OFFICE/OUTPATIENT [facility] 60 MINUTES Ignacio Cheatham MD [address] [place] [address] Referral ID Status Reason Start Date Expiration Date Visits Requested Visits Authorized [id number] Authorized PCP Requested Referral 03/25/2024 03/25/2025 1 1 Chief Complaint and Reason for Visit Chief Complaint HYPOTENSION Chief Complaint leg pain Chief Complaint leg pain R LEG PAIN RLE INTRACTABLE PAIN RLE INTRACTABLE PAIN RLE INTRACTABLE PAIN Reason for Visit Inability to walk Obesity Right leg pain Benign essential hypertension History of diabetes mellitus, type II Kidney disease, chronic, stage IV (GFR 15-29 ml/min) Chief Complaint leg pain R LEG PAIN RLE INTRACTABLE PAIN RLE INTRACTABLE PAIN RLE INTRACTABLE PAIN CARE HOME LAB WORK LABWORK LABWORK LABWORK Foot pain/swelling/ecchymosis Reason for Visit Inability to walk Right leg pain Chief Complaint leg pain R LEG PAIN RLE INTRACTABLE PAIN RLE INTRACTABLE PAIN RLE INTRACTABLE PAIN CARE HOME LAB WORK LABWORK LABWORK LABWORK Foot pain/swelling/ecchymosis chest pain Reason for Visit Inability to walk Right leg pain Chief Complaint CARE HOME LAB WOR K LABWORK LABWORK LABWORK Foot pain/swelling/ecchymosis chest pain LEG PAIN Chief Complaint LABWORK LABWORK LABWORK Foot pain/swelling/ecchymosis chest pain LEG PAIN RIGHT KNEE PAIN Chief Complaint LABWORK Foot pain/swelling/ecchymosis chest pain LEG PAIN RIGHT KNEE PAIN TIB/FIB FRACTURE INABILITY TO AMBULATE TIB/FIB FRACTURE INABILITY TO AMBULATE Reason for Visit ESRD (end stage edgar l disease) on dialysis Fracture of right lower extremity History of COPD Chief Complaint Foot pain/swelling/e cchymosis chest pain LEG PAIN RIGHT KNEE PAIN TIB/FIB FRACTURE INABILITY TO AMBULATE TIB/FIB FRACTURE INABILITY TO AMBULATE TIB/FIB FRACTURE INABILITY TO AMBULATE TIB/FIB FRACTURE INABILITY TO AMBULATE EKG TIB/FIB FRACTURE INABILITY TO AMBULATE TIB/FIB FRACTURE INABILITY TO AMBULATE TIB/FIB FRACTURE INABILITY TO AMBULATE TIB/FIB FRACTURE INABILITY TO AMBULATE TIB/FIB FRACTURE INABILITY TO AMBULATE TIB/FIB FRACTURE INABILITY TO AMBULATE TIB/FIB FRACTURE INABILITY TO AMBULATE TIB/FIB FRACTURE INABILITY TO AMBULATE Reason for Visit Anemia Anxiety and depression Benign essential hypertension Diabetes mellitus, type 2 ESRD (end stage renal disease) on dialysis Fracture of fibula, right, closed Fracture of right lower extremity Hyperkalemia Inability to walk Osteoarthritis of right knee Pathological fracture, right tibia, initial encounter for fracture Secondary hyperparathyroidism History of asthma History of bipolar disorder History of COPD History of tobacco use Chief Complaint Foot pain/swelling/e cchymosis chest pain LEG PAIN RIGHT KNEE PAIN TIB/FIB FRACTURE INABILITY TO AMBULATE TIB/FIB FRACTURE INABILITY TO AMBULATE EKG EKG TIB/FIB FRACTURE INABILITY TO AMBULATE TIB/FIB FRACTURE INABILITY TO AMBULATE EKG TIB/FIB FRACTURE INABILITY TO AMBULATE TIB/FIB FRACTURE INABILITY TO AMBULATE TIB/FIB FRACTURE INABILITY TO AMBULATE TIB/FIB FRACTURE INABILITY TO AMBULATE TIB/FIB FRACTURE INABILITY TO AMBULATE TIB/FIB FRACTURE INABILITY TO AMBULATE TIB/FIB FRACTURE INABILITY TO AMBULATE TIB/FIB FRACTURE INABILITY TO AMBULATE abn lab Reason for Visit Secondary hyperparat hyroidism Chief Complaint LEG PAIN RIGHT KNEE PAIN TIB/FIB FRACTURE INABILITY TO AMBULATE TIB/FIB FRACTURE INABILITY TO AMBULATE EKG EKG TIB/FIB FRACTURE INABILITY TO AMBULATE TIB/FIB FRACTURE INABILITY TO AMBULATE EKG TIB/FIB FRACTURE INABILITY TO AMBULATE TIB/FIB FRACTURE INABILITY TO AMBULATE TIB/FIB FRACTURE INABILITY TO AMBULATE TIB/FIB FRACTURE INABILITY TO AMBULATE TIB/FIB FRACTURE INABILITY TO AMBULATE TIB/FIB FRACTURE INABILITY TO AMBULATE TIB/FIB FRACTURE INABILITY TO AMBULATE TIB/FIB FRACTURE INABILITY TO AMBULATE CARE HOME LABWORK abn lab [facility]ARE [facility] LABWORK LAB WORK LAB WORK LAB WORK fall Reason for Visit Secondary hyperparat hyroidism Chief Complaint CARE HOME LABWORK abn lab [facility]ARE [facility] LABWORK LAB WORK LAB WORK LAB WORK LABWORK fall LEG Chief Complaint LABWORK fall LEG lower ext ABNORMAL LABS Chief Complaint fall LEG lower ext ABNORMAL LABS 1 UNIT PRBC Chief Complaint Admit Date FIBROMYALGIA, AQUA THERAPY. RX HERE August 24, 2024 3:30pm cp September 06, 2024 6:38p m Health Concerns Infection Onset Date Last Indicated Resolved Time COVID-19 Confirmed 10/15/2021 10/15/2021 Infection Onset Date Last Indicated Resolved Time COVID-19 Confirmed 10/15/2021 10/15/2021 Medications Administered Section Inactive Administered Medications - up to 3 most recent administrations Medication Order MAR Action Action Date Dose Rate Site iron sucrose 200 mg in NaCl 0.9% 100ml (VENOFER) 200 mg, INTRAVENOUS, at 400 mL/hr, Administer over 15 Minutes, ONCE, 1 dose, On 12/30/21 at 0930, Please conduct a 30 minute post dose observation. New Bag/Syringe/Bottle 12/30/2021 9:23 AM EDT 200 mg 400 mL/hr Inactive Administered Medications - up to 3 most recent administrations Medication Order MAR Action Action Date Dose Rate Site iron sucrose 200 mg in NaCl 0.9% 100ml (VENOFER) 200 mg, INTRAVENOUS, at 400 mL/hr, Administer over 15 Minutes, ONCE, 1 dose, On 01/08/22 at 1400, Please conduct a 30 minute post dose observation. New Bag/Syringe/Bottle 01/08/2022 2:12 PM EST 200 mg 400 mL/hr Inactive Administered Medications - up to 3 most recent administrations Medication Order MAR Action Action Date Dose Rate Site iron sucrose 200 mg in NaCl 0.9% 100ml (VENOFER) 200 mg, INTRAVENOUS, at 400 mL/hr, Administer over 15 Minutes, ONCE, 1 dose, On Thu01/10/22 at 1500, Please conduct a 30 minute post dose observation. New Bag/Syringe/Bottle 01/10/2022 3:00 PM EST 200 mg 400 mL/hr Inactive Administered Medications - up to 3 most recent administrations Medication Order MAR Action Action Date Dose Rate Site iron sucrose 200 mg in NaCl 0.9% 100ml (VENOFER) 200 mg, INTRAVENOUS, at 400 mL/hr, Administer over 15 Minutes, ONCE, 1 dose, On 01/13/22 at 1500, Please conduct a 30 minute post dose observation. New Bag/Syringe/Bottle 01/13/2022 2:55 PM EST 200 mg 400 mL/hr Additional Source Comments INFORMATION SOURCE (unrecogn ized section and content) DATE CREATED AUTHOR 08/19/2017 [facility] ([place]) DATE CREATED AUTHOR AUTHOR'S ORGANIZ ATION 08/21/2017 [facility] DATE CREATED AUTHOR AUTHOR'S ORGANIZ ATION 01/24/2020 [facility] DATE CREATED AUTHOR AUTHOR'S ORGANIZ ATION 08/10/2022 [facility] DATE CREATED AUTHOR AUTHOR'S ORGANIZ ATION 06/17/2023 [facility] DATE CREATED AUTHOR AUTHOR'S ORGANIZ ATION 08/05/2024 [facility] DATE CREATED AUTHOR AUTHOR'S ORGANIZ ATION 08/28/2024 [facility] DATE CREATED AUTHOR AUTHOR'S ORGANIZ ATION 09/16/2024 [facility] DATE CREATED AUTHOR AUTHOR'S ORGANIZ ATION 10/02/2024 [facility] Source Comments (unrecognize d section and content) In the event this informatio n is protected by the Federal Confidentiality of Alcohol and Drug Abuse Patient Records regulations: The Federal rules restrict any use of the information to criminally investigate or prosecute any alcohol or drug abuse patient.[facility] the event this information is protected by the Federal Confidentiality of Alcohol and Drug Abuse Patient Records regulations: The Federal rules restrict any use of the information to criminally investigate or prosecute any alcohol or drug abuse patient.[facility] the event this information is protected by the Federal Confidentiality of Alcohol and Drug Abuse Patient Records regulations: The Federal rules restrict any use of the information to criminally investigate or prosecute any alcohol or drug abuse patient.[facility] the event this information is protected by the Federal Confidentiality of Alcohol and Drug Abuse Patient Records regulations: The Federal rules restrict any use of the information to criminally investigate or prosecute any alcohol or drug abuse patient.[facility] the event this information is protected by the Federal Confidentiality of Alcohol and Drug Abuse Patient Records regulations: The Federal rules restrict any use of the information to criminally investigate or prosecute any alcohol or drug abuse patient.[facility] the event this information is protected by the Federal Confidentiality of Alcohol and Drug Abuse Patient Records regulations: The Federal rules restrict any use of the information to criminally investigate or prosecute any alcohol or drug abuse patient.[facility] CenterIn the event this information is protected by the Federal Confidentiality of Alcohol and Drug Abuse Patient Records regulations: The Federal rules restrict any use of the information to criminally investigate or prosecute any alcohol or drug abuse patient.[facility] CenterIn the event this information is protected by the Federal Confidentiality of Alcohol and Drug Abuse Patient Records regulations: The Federal rules restrict any use of the information to criminally investigate or prosecute any alcohol or drug abuse patient.[facility] CenterIn the event this information is protected by the Federal Confidentiality of Alcohol and Drug Abuse Patient Records regulations: The Federal rules restrict any use of the information to criminally investigate or prosecute any alcohol or drug abuse patient.[facility] CenterIn the event this information is protected by the Federal Confidentiality of Alcohol and Drug Abuse Patient Records regulations: The Federal rules restrict any use of the information to criminally investigate or prosecute any alcohol or drug abuse patient.[facility] CenterIn the event this information is protected by the Federal Confidentiality of Alcohol and Drug Abuse Patient Records regulations: The Federal rules restrict any use of the information to criminally investigate or prosecute any alcohol or drug abuse patient.[facility] CenterIn the event this information is protected by the Federal Confidentiality of Alcohol and Drug Abuse Patient Records regulations: The Federal rules restrict any use of the information to criminally investigate or prosecute any alcohol or drug abuse patient.[facility] CenterIn the event this information is protected by the Federal Confidentiality of Alcohol and Drug Abuse Patient Records regulations: The Federal rules restrict any use of the information to criminally investigate or prosecute any alcohol or drug abuse patient.[facility] CenterIn the event this information is protected by the Federal Confidentiality of Alcohol and Drug Abuse Patient Records regulations: The Federal rules restrict any use of the information to criminally investigate or prosecute any alcohol or drug abuse patient.[facility] CenterIn the event this information is protected by the Federal Confidentiality of Alcohol and Drug Abuse Patient Records regulations: The Federal rules restrict any use of the information to criminally investigate or prosecute any alcohol or drug abuse patient.[facility] CenterIn the event this information is protected by the Federal Confidentiality of Alcohol and Drug Abuse Patient Records regulations: The Federal rules restrict any use of the information to criminally investigate or prosecute any alcohol or drug abuse patient.[facility] CenterIn the event this information is protected by the Federal Confidentiality of Alcohol and Drug Abuse Patient Records regulations: The Federal rules restrict any use of the information to criminally investigate or prosecute any alcohol or drug abuse patient.[facility] CenterIn the event this information is protected by the Federal Confidentiality of Alcohol and Drug Abuse Patient Records regulations: The Federal rules restrict any use of the information to criminally investigate or prosecute any alcohol or drug abuse patient.[facility] CenterIn the event this information is protected by the Federal Confidentiality of Alcohol and Drug Abuse Patient Records regulations: The Federal rules restrict any use of the information to criminally investigate or prosecute any alcohol or drug abuse patient.[facility] CenterIn the event this information is protected by the Federal Confidentiality of Alcohol and Drug Abuse Patient Records regulations: The Federal rules restrict any use of the information to criminally investigate or prosecute any alcohol or drug abuse patient.[facility] CenterIn the event this information is protected by the Federal Confidentiality of Alcohol and Drug Abuse Patient Records regulations: The Federal rules restrict any use of the information to criminally investigate or prosecute any alcohol or drug abuse patient.[facility] CenterIn the event this information is protected by the Federal Confidentiality of Alcohol and Drug Abuse Patient Records regulations: The Federal rules restrict any use of the information to criminally investigate or prosecute any alcohol or drug abuse patient.[facility] CenterIn the event this information is protected by the Federal Confidentiality of Alcohol and Drug Abuse Patient Records regulations: The Federal rules restrict any use of the information to criminally investigate or prosecute any alcohol or drug abuse patient.[facility] CenterIn the event this information is protected by the Federal Confidentiality of Alcohol and Drug Abuse Patient Records regulations: The Federal rules restrict any use of the information to criminally investigate or prosecute any alcohol or drug abuse patient.[facility] CenterIn the event this information is protected by the Federal Confidentiality of Alcohol and Drug Abuse Patient Records regulations: The Federal rules restrict any use of the information to criminally investigate or prosecute any alcohol or drug abuse patient.[facility] CenterIn the event this information is protected by the Federal Confidentiality of Alcohol and Drug Abuse Patient Records regulations: The Federal rules restrict any use of the information to criminally investigate or prosecute any alcohol or drug abuse patient.[facility] CenterIn the event this information is protected by the Federal Confidentiality of Alcohol and Drug Abuse Patient Records regulations: The Federal rules restrict any use of the information to criminally investigate or prosecute any alcohol or drug abuse patient.[facility] CenterIn the event this information is protected by the Federal Confidentiality of Alcohol and Drug Abuse Patient Records regulations: The Federal rules restrict any use of the information to criminally investigate or prosecute any alcohol or drug abuse patient.[facility] CenterIn the event this information is protected by the Federal Confidentiality of Alcohol and Drug Abuse Patient Records regulations: The Federal rules restrict any use of the information to criminally investigate or prosecute any alcohol or drug abuse patient.[facility] CenterIn the event this information is protected by the Federal Confidentiality of Alcohol and Drug Abuse Patient Records regulations: The Federal rules restrict any use of the information to criminally investigate or prosecute any alcohol or drug abuse patient.[facility] CenterIn the event this information is protected by the Federal Confidentiality of Alcohol and Drug Abuse Patient Records regulations: The Federal rules restrict any use of the information to criminally investigate or prosecute any alcohol or drug abuse patient.[facility] CenterIn the event this information is protected by the Federal Confidentiality of Alcohol and Drug Abuse Patient Records regulations: The Federal rules restrict any use of the information to criminally investigate or prosecute any alcohol or drug abuse patient.[facility] CenterIn the event this information is protected by the Federal Confidentiality of Alcohol and Drug Abuse Patient Records regulations: The Federal rules restrict any use of the information to criminally investigate or prosecute any alcohol or drug abuse patient.[facility] CenterIn the event this information is protected by the Federal Confidentiality of Alcohol and Drug Abuse Patient Records regulations: The Federal rules restrict any use of the information to criminally investigate or prosecute any alcohol or drug abuse patient.[facility] CenterIn the event this information is protected by the Federal Confidentiality of Alcohol and Drug Abuse Patient Records regulations: The Federal rules restrict any use of the information to criminally investigate or prosecute any alcohol or drug abuse patient.[facility] CenterIn the event this information is protected by the Federal Confidentiality of Alcohol and Drug Abuse Patient Records regulations: The Federal rules restrict any use of the information to criminally investigate or prosecute any alcohol or drug abuse patient.[facility] CenterIn the event this information is protected by the Federal Confidentiality of Alcohol and Drug Abuse Patient Records regulations: The Federal rules restrict any use of the information to criminally investigate or prosecute any alcohol or drug abuse patient.[facility] CenterIn the event this information is protected by the Federal Confidentiality of Alcohol and Drug Abuse Patient Records regulations: The Federal rules restrict any use of the information to criminally investigate or prosecute any alcohol or drug abuse patient.[facility] CenterIn the event this information is protected by the Federal Confidentiality of Alcohol and Drug Abuse Patient Records regulations: The Federal rules restrict any use of the information to criminally investigate or prosecute any alcohol or drug abuse patient.[facility] CenterIn the event this information is protected by the Federal Confidentiality of Alcohol and Drug Abuse Patient Records regulations: The Federal rules restrict any use of the information to criminally investigate or prosecute any alcohol or drug abuse patient.[facility] CenterIn the event this information is protected by the Federal Confidentiality of Alcohol and Drug Abuse Patient Records regulations: The Federal rules restrict any use of the information to criminally investigate or prosecute any alcohol or drug abuse patient.[facility] CenterIn the event this information is protected by the Federal Confidentiality of Alcohol and Drug Abuse Patient Records regulations: The Federal rules restrict any use of the information to criminally investigate or prosecute any alcohol or drug abuse patient.[facility] CenterIn the event this information is protected by the Federal Confidentiality of Alcohol and Drug Abuse Patient Records regulations: The Federal rules restrict any use of the information to criminally investigate or prosecute any alcohol or drug abuse patient.[facility] CenterIn the event this information is protected by the Federal Confidentiality of Alcohol and Drug Abuse Patient Records regulations: The Federal rules restrict any use of the information to criminally investigate or prosecute any alcohol or drug abuse patient.[facility] the event this information is protected by the Federal Confidentiality of Alcohol and Drug Abuse Patient Records regulations: The Federal rules restrict any use of the information to criminally investigate or prosecute any alcohol or drug abuse patient.[facility] CenterIn the event this information is protected by the Federal Confidentiality of Alcohol and Drug Abuse Patient Records regulations: The Federal rules restrict any use of the information to criminally investigate or prosecute any alcohol or drug abuse patient.[facility] CenterIn the event this information is protected by the Federal Confidentiality of Alcohol and Drug Abuse Patient Records regulations: The Federal rules restrict any use of the information to criminally investigate or prosecute any alcohol or drug abuse patient.[facility]In the event this information is protected by the Federal Confidentiality of Alcohol and Drug Abuse Patient Records regulations: The Federal rules restrict any use of the information to criminally investigate or prosecute any alcohol or drug abuse patient.[facility] CenterIn the event this information is protected by the Federal Confidentiality of Alcohol and Drug Abuse Patient Records regulations: The Federal rules restrict any use of the information to criminally investigate or prosecute any alcohol or drug abuse patient.[facility] CenterIn the event this information is protected by the Federal Confidentiality of Alcohol and Drug Abuse Patient Records regulations: The Federal rules restrict any use of the information to criminally investigate or prosecute any alcohol or drug abuse patient.[facility]In the event this information is protected by the Federal Confidentiality of Alcohol and Drug Abuse Patient Records regulations: The Federal rules restrict any use of the information to criminally investigate or prosecute any alcohol or drug abuse patient.[facility]In the event this information is protected by the Federal Confidentiality of Alcohol and Drug Abuse Patient Records regulations: The Federal rules restrict any use of the information to criminally investigate or prosecute any alcohol or drug abuse patient.[facility]In the event this information is protected by the Federal Confidentiality of Alcohol and Drug Abuse Patient Records regulations: The Federal rules restrict any use of the information to criminally investigate or prosecute any alcohol or drug abuse patient.[facility]In the event this information is protected by the Federal Confidentiality of Alcohol and Drug Abuse Patient Records regulations: The Federal rules restrict any use of the information to criminally investigate or prosecute any alcohol or drug abuse patient.[facility]In the event this information is protected by the Federal Confidentiality of Alcohol and Drug Abuse Patient Records regulations: The Federal rules restrict any use of the information to criminally investigate or prosecute any alcohol or drug abuse patient.[facility]In the event this information is protected by the Federal Confidentiality of Alcohol and Drug Abuse Patient Records regulations: The Federal rules restrict any use of the information to criminally investigate or prosecute any alcohol or drug abuse patient.[facility]In the event this information is protected by the Federal Confidentiality of Alcohol and Drug Abuse Patient Records regulations: The Federal rules restrict any use of the information to criminally investigate or prosecute any alcohol or drug abuse patient.[facility]In the event this information is protected by the Federal Confidentiality of Alcohol and Drug Abuse Patient Records regulations: The Federal rules restrict any use of the information to criminally investigate or prosecute any alcohol or drug abuse patient.[facility]In the event this information is protected by the Federal Confidentiality of Alcohol and Drug Abuse Patient Records regulations: The Federal rules restrict any use of the information to criminally investigate or prosecute any alcohol or drug abuse patient.[facility]In the event this information is protected by the Federal Confidentiality of Alcohol and Drug Abuse Patient Records regulations: The Federal rules restrict any use of the information to criminally investigate or prosecute any alcohol or drug abuse patient.[facility]In the event this information is protected by the Federal Confidentiality of Alcohol and Drug Abuse Patient Records regulations: The Federal rules restrict any use of the information to criminally investigate or prosecute any alcohol or drug abuse patient.[facility]In the event this information is protected by the Federal Confidentiality of Alcohol and Drug Abuse Patient Records regulations: The Federal rules restrict any use of the information to criminally investigate or prosecute any alcohol or drug abuse patient.[facility]In the event this information is protected by the Federal Confidentiality of Alcohol and Drug Abuse Patient Records regulations: The Federal rules restrict any use of the information to criminally investigate or prosecute any alcohol or drug abuse patient.[facility]In the event this information is protected by the Federal Confidentiality of Alcohol and Drug Abuse Patient Records regulations: The Federal rules restrict any use of the information to criminally investigate or prosecute any alcohol or drug abuse patient.[facility]In the event this information is protected by the Federal Confidentiality of Alcohol and Drug Abuse Patient Records regulations: The Federal rules restrict any use of the information to criminally investigate or prosecute any alcohol or drug abuse patient.[facility]In the event this information is protected by the Federal Confidentiality of Alcohol and Drug Abuse Patient Records regulations: The Federal rules restrict any use of the information to criminally investigate or prosecute any alcohol or drug abuse patient.[facility]In the event this information is protected by the Federal Confidentiality of Alcohol and Drug Abuse Patient Records regulations: The Federal rules restrict any use of the information to criminally investigate or prosecute any alcohol or drug abuse patient.[facility]In the event this information is protected by the Federal Confidentiality of Alcohol and Drug Abuse Patient Records regulations: The Federal rules restrict any use of the information to criminally investigate or prosecute any alcohol or drug abuse patient.[facility]In the event this information is protected by the Federal Confidentiality of Alcohol and Drug Abuse Patient Records regulations: The Federal rules restrict any use of the information to criminally investigate or prosecute any alcohol or drug abuse patient.[facility]In the event this information is protected by the Federal Confidentiality of Alcohol and Drug Abuse Patient Records regulations: The Federal rules restrict any use of the information to criminally investigate or prosecute any alcohol or drug abuse patient.[facility]In the event this information is protected by the Federal Confidentiality of Alcohol and Drug Abuse Patient Records regulations: The Federal rules restrict any use of the information to criminally investigate or prosecute any alcohol or drug abuse patient.[facility]In the event this information is protected by the Federal Confidentiality of Alcohol and Drug Abuse Patient Records regulations: The Federal rules restrict any use of the information to criminally investigate or prosecute any alcohol or drug abuse patient.[facility]In the event this information is protected by the Federal Confidentiality of Alcohol and Drug Abuse Patient Records regulations: The Federal rules restrict any use of the information to criminally investigate or prosecute any alcohol or drug abuse patient.[facility]In the event this information is protected by the Federal Confidentiality of Alcohol and Drug Abuse Patient Records regulations: The Federal rules restrict any use of the information to criminally investigate or prosecute any alcohol or drug abuse patient.[facility]In the event this information is protected by the Federal Confidentiality of Alcohol and Drug Abuse Patient Records regulations: The Federal rules restrict any use of the information to criminally investigate or prosecute any alcohol or drug abuse patient.[facility]In the event this information is protected by the Federal Confidentiality of Alcohol and Drug Abuse Patient Records regulations: The Federal rules restrict any use of the information to criminally investigate or prosecute any alcohol or drug abuse patient.[facility]In the event this information is protected by the Federal Confidentiality of Alcohol and Drug Abuse Patient Records regulations: The Federal rules restrict any use of the information to criminally investigate or prosecute any alcohol or drug abuse patient.[facility]In the event this information is protected by the Federal Confidentiality of Alcohol and Drug Abuse Patient Records regulations: The Federal rules restrict any use of the information to criminally investigate or prosecute any alcohol or drug abuse patient.[facility]In the event this information is protected by the Federal Confidentiality of Alcohol and Drug Abuse Patient Records regulations: The Federal rules restrict any use of the information to criminally investigate or prosecute any alcohol or drug abuse patient.[facility]In the event this information is protected by the Federal Confidentiality of Alcohol and Drug Abuse Patient Records regulations: The Federal rules restrict any use of the information to criminally investigate or prosecute any alcohol or drug abuse patient.[facility]In the event this information is protected by the Federal Confidentiality of Alcohol and Drug Abuse Patient Records regulations: The Federal rules restrict any use of the information to criminally investigate or prosecute any alcohol or drug abuse patient.[facility]In the event this information is protected by the Federal Confidentiality of Alcohol and Drug Abuse Patient Records regulations: The Federal rules restrict any use of the information to criminally investigate or prosecute any alcohol or drug abuse patient.[facility]In the event this information is protected by the Federal Confidentiality of Alcohol and Drug Abuse Patient Records regulations: The Federal rules restrict any use of the information to criminally investigate or prosecute any alcohol or drug abuse patient.[facility]In the event this information is protected by the Federal Confidentiality of Alcohol and Drug Abuse Patient Records regulations: The Federal rules restrict any use of the information to criminally investigate or prosecute any alcohol or drug abuse patient.[facility]In the event this information is protected by the Federal Confidentiality of Alcohol and Drug Abuse Patient Records regulations: The Federal rules restrict any use of the information to criminally investigate or prosecute any alcohol or drug abuse patient.[facility]In the event this information is protected by the Federal Confidentiality of Alcohol and Drug Abuse Patient Records regulations: The Federal rules restrict any use of the information to criminally investigate or prosecute any alcohol or drug abuse patient.[facility]In the event this information is protected by the Federal Confidentiality of Alcohol and Drug Abuse Patient Records regulations: The Federal rules restrict any use of the information to criminally investigate or prosecute any alcohol or drug abuse patient.[facility]In the event this information is protected by the Federal Confidentiality of Alcohol and Drug Abuse Patient Records regulations: The Federal rules restrict any use of the information to criminally investigate or prosecute any alcohol or drug abuse patient.[facility]In the event this information is protected by the Federal Confidentiality of Alcohol and Drug Abuse Patient Records regulations: The Federal rules restrict any use of the information to criminally investigate or prosecute any alcohol or drug abuse patient.[facility] CenterIn the event this information is protected by the Federal Confidentiality of Alcohol and Drug Abuse Patient Records regulations: The Federal rules restrict any use of the information to criminally investigate or prosecute any alcohol or drug abuse patient.[facility] CenterIn the event this information is protected by the Federal Confidentiality of Alcohol and Drug Abuse Patient Records regulations: The Federal rules restrict any use of the information to criminally investigate or prosecute any alcohol or drug abuse patient.[facility] CenterIn the event this information is protected by the Federal Confidentiality of Alcohol and Drug Abuse Patient Records regulations: The Federal rules restrict any use of the information to criminally investigate or prosecute any alcohol or drug abuse patient.[facility] CenterIn the event this information is protected by the Federal Confidentiality of Alcohol and Drug Abuse Patient Records regulations: The Federal rules restrict any use of the information to criminally investigate or prosecute any alcohol or drug abuse patient.[facility] CenterIn the event this information is protected by the Federal Confidentiality of Alcohol and Drug Abuse Patient Records regulations: The Federal rules restrict any use of the information to criminally investigate or prosecute any alcohol or drug abuse patient.[facility] the event this information is protected by the Federal Confidentiality of Alcohol and Drug Abuse Patient Records regulations: The Federal rules restrict any use of the information to criminally investigate or prosecute any alcohol or drug abuse patient.[facility] CenterIn the event this information is protected by the Federal Confidentiality of Alcohol and Drug Abuse Patient Records regulations: The Federal rules restrict any use of the information to criminally investigate or prosecute any alcohol or drug abuse patient.[facility] CenterIn the event this information is protected by the Federal Confidentiality of Alcohol and Drug Abuse Patient Records regulations: The Federal rules restrict any use of the information to criminally investigate or prosecute any alcohol or drug abuse patient.[facility] CenterIn the event this information is protected by the Federal Confidentiality of Alcohol and Drug Abuse Patient Records regulations: The Federal rules restrict any use of the information to criminally investigate or prosecute any alcohol or drug abuse patient.[facility] CenterIn the event this information is protected by the Federal Confidentiality of Alcohol and Drug Abuse Patient Records regulations: The Federal rules restrict any use of the information to criminally investigate or prosecute any alcohol or drug abuse patient.[facility] CenterIn the event this information is protected by the Federal Confidentiality of Alcohol and Drug Abuse Patient Records regulations: The Federal rules restrict any use of the information to criminally investigate or prosecute any alcohol or drug abuse patient.[facility] CenterIn the event this information is protected by the Federal Confidentiality of Alcohol and Drug Abuse Patient Records regulations: The Federal rules restrict any use of the information to criminally investigate or prosecute any alcohol or drug abuse patient.[facility] CenterIn the event this information is protected by the Federal Confidentiality of Alcohol and Drug Abuse Patient Records regulations: The Federal rules restrict any use of the information to criminally investigate or prosecute any alcohol or drug abuse patient.[facility] CenterIn the event this information is protected by the Federal Confidentiality of Alcohol and Drug Abuse Patient Records regulations: The Federal rules restrict any use of the information to criminally investigate or prosecute any alcohol or drug abuse patient.[facility] CenterIn the event this information is protected by the Federal Confidentiality of Alcohol and Drug Abuse Patient Records regulations: The Federal rules restrict any use of the information to criminally investigate or prosecute any alcohol or drug abuse patient.[facility] CenterIn the event this information is protected by the Federal Confidentiality of Alcohol and Drug Abuse Patient Records regulations: The Federal rules restrict any use of the information to criminally investigate or prosecute any alcohol or drug abuse patient.[facility] CenterIn the event this information is protected by the Federal Confidentiality of Alcohol and Drug Abuse Patient Records regulations: The Federal rules restrict any use of the information to criminally investigate or prosecute any alcohol or drug abuse patient.[facility] CenterIn the event this information is protected by the Federal Confidentiality of Alcohol and Drug Abuse Patient Records regulations: The Federal rules restrict any use of the information to criminally investigate or prosecute any alcohol or drug abuse patient.[facility] CenterIn the event this information is protected by the Federal Confidentiality of Alcohol and Drug Abuse Patient Records regulations: The Federal rules restrict any use of the information to criminally investigate or prosecute any alcohol or drug abuse patient.[facility] CenterIn the event this information is protected by the Federal Confidentiality of Alcohol and Drug Abuse Patient Records regulations: The Federal rules restrict any use of the information to criminally investigate or prosecute any alcohol or drug abuse patient.[facility] CenterIn the event this information is protected by the Federal Confidentiality of Alcohol and Drug Abuse Patient Records regulations: The Federal rules restrict any use of the information to criminally investigate or prosecute any alcohol or drug abuse patient.[facility] CenterIn the event this information is protected by the Federal Confidentiality of Alcohol and Drug Abuse Patient Records regulations: The Federal rules restrict any use of the information to criminally investigate or prosecute any alcohol or drug abuse patient.[facility] CenterIn the event this information is protected by the Federal Confidentiality of Alcohol and Drug Abuse Patient Records regulations: The Federal rules restrict any use of the information to criminally investigate or prosecute any alcohol or drug abuse patient.[facility] CenterIn the event this information is protected by the Federal Confidentiality of Alcohol and Drug Abuse Patient Records regulations: The Federal rules restrict any use of the information to criminally investigate or prosecute any alcohol or drug abuse patient.[facility] CenterIn the event this information is protected by the Federal Confidentiality of Alcohol and Drug Abuse Patient Records regulations: The Federal rules restrict any use of the information to criminally investigate or prosecute any alcohol or drug abuse patient.[facility] CenterIn the event this information is protected by the Federal Confidentiality of Alcohol and Drug Abuse Patient Records regulations: The Federal rules restrict any use of the information to criminally investigate or prosecute any alcohol or drug abuse patient.[facility] CenterIn the event this information is protected by the Federal Confidentiality of Alcohol and Drug Abuse Patient Records regulations: The Federal rules restrict any use of the information to criminally investigate or prosecute any alcohol or drug abuse patient.[facility] CenterIn the event this information is protected by the Federal Confidentiality of Alcohol and Drug Abuse Patient Records regulations: The Federal rules restrict any use of the information to criminally investigate or prosecute any alcohol or drug abuse patient.[facility] CenterIn the event this information is protected by the Federal Confidentiality of Alcohol and Drug Abuse Patient Records regulations: The Federal rules restrict any use of the information to criminally investigate or prosecute any alcohol or drug abuse patient.[facility] CenterIn the event this information is protected by the Federal Confidentiality of Alcohol and Drug Abuse Patient Records regulations: The Federal rules restrict any use of the information to criminally investigate or prosecute any alcohol or drug abuse patient.[facility] CenterIn the event this information is protected by the Federal Confidentiality of Alcohol and Drug Abuse Patient Records regulations: The Federal rules restrict any use of the information to criminally investigate or prosecute any alcohol or drug abuse patient.[facility] CenterIn the event this information is protected by the Federal Confidentiality of Alcohol and Drug Abuse Patient Records regulations: The Federal rules restrict any use of the information to criminally investigate or prosecute any alcohol or drug abuse patient.[facility]In the event this information is protected by the Federal Confidentiality of Alcohol and Drug Abuse Patient Records regulations: The Federal rules restrict any use of the information to criminally investigate or prosecute any alcohol or drug abuse patient.[facility] CenterIn the event this information is protected by the Federal Confidentiality of Alcohol and Drug Abuse Patient Records regulations: The Federal rules restrict any use of the information to criminally investigate or prosecute any alcohol or drug abuse patient.[facility]In the event this information is protected by the Federal Confidentiality of Alcohol and Drug Abuse Patient Records regulations: The Federal rules restrict any use of the information to criminally investigate or prosecute any alcohol or drug abuse patient.[facility]In the event this information is protected by the Federal Confidentiality of Alcohol and Drug Abuse Patient Records regulations: The Federal rules restrict any use of the information to criminally investigate or prosecute any alcohol or drug abuse patient.[facility]In the event this information is protected by the Federal Confidentiality of Alcohol and Drug Abuse Patient Records regulations: The Federal rules restrict any use of the information to criminally investigate or prosecute any alcohol or drug abuse patient.[facility]In the event this information is protected by the Federal Confidentiality of Alcohol and Drug Abuse Patient Records regulations: The Federal rules restrict any use of the information to criminally investigate or prosecute any alcohol or drug abuse patient.[facility]In the event this information is protected by the Federal Confidentiality of Alcohol and Drug Abuse Patient Records regulations: The Federal rules restrict any use of the information to criminally investigate or prosecute any alcohol or drug abuse patient.[facility]In the event this information is protected by the Federal Confidentiality of Alcohol and Drug Abuse Patient Records regulations: The Federal rules restrict any use of the information to criminally investigate or prosecute any alcohol or drug abuse patient.[facility]In the event this information is protected by the Federal Confidentiality of Alcohol and Drug Abuse Patient Records regulations: The Federal rules restrict any use of the information to criminally investigate or prosecute any alcohol or drug abuse patient.[facility]In the event this information is protected by the Federal Confidentiality of Alcohol and Drug Abuse Patient Records regulations: The Federal rules restrict any use of the information to criminally investigate or prosecute any alcohol or drug abuse patient.[facility]In the event this information is protected by the Federal Confidentiality of Alcohol and Drug Abuse Patient Records regulations: The Federal rules restrict any use of the information to criminally investigate or prosecute any alcohol or drug abuse patient.[facility]In the event this information is protected by the Federal Confidentiality of Alcohol and Drug Abuse Patient Records regulations: The Federal rules restrict any use of the information to criminally investigate or prosecute any alcohol or drug abuse patient.[facility]In the event this information is protected by the Federal Confidentiality of Alcohol and Drug Abuse Patient Records regulations: The Federal rules restrict any use of the information to criminally investigate or prosecute any alcohol or drug abuse patient.[facility]In the event this information is protected by the Federal Confidentiality of Alcohol and Drug Abuse Patient Records regulations: The Federal rules restrict any use of the information to criminally investigate or prosecute any alcohol or drug abuse patient.[facility]In the event this information is protected by the Federal Confidentiality of Alcohol and Drug Abuse Patient Records regulations: The Federal rules restrict any use of the information to criminally investigate or prosecute any alcohol or drug abuse patient.[facility]In the event this information is protected by the Federal Confidentiality of Alcohol and Drug Abuse Patient Records regulations: The Federal rules restrict any use of the information to criminally investigate or prosecute any alcohol or drug abuse patient.[facility]In the event this information is protected by the Federal Confidentiality of Alcohol and Drug Abuse Patient Records regulations: The Federal rules restrict any use of the information to criminally investigate or prosecute any alcohol or drug abuse patient.[facility]In the event this information is protected by the Federal Confidentiality of Alcohol and Drug Abuse Patient Records regulations: The Federal rules restrict any use of the information to criminally investigate or prosecute any alcohol or drug abuse patient.[facility]In the event this information is protected by the Federal Confidentiality of Alcohol and Drug Abuse Patient Records regulations: The Federal rules restrict any use of the information to criminally investigate or prosecute any alcohol or drug abuse patient.[facility]In the event this information is protected by the Federal Confidentiality of Alcohol and Drug Abuse Patient Records regulations: The Federal rules restrict any use of the information to criminally investigate or prosecute any alcohol or drug abuse patient.[facility]In the event this information is protected by the Federal Confidentiality of Alcohol and Drug Abuse Patient Records regulations: The Federal rules restrict any use of the information to criminally investigate or prosecute any alcohol or drug abuse patient.[facility]In the event this information is protected by the Federal Confidentiality of Alcohol and Drug Abuse Patient Records regulations: The Federal rules restrict any use of the information to criminally investigate or prosecute any alcohol or drug abuse patient.[facility] CenterIn the event this information is protected by the Federal Confidentiality of Alcohol and Drug Abuse Patient Records regulations: The Federal rules restrict any use of the information to criminally investigate or prosecute any alcohol or drug abuse patient.[facility] the event this information is protected by the Federal Confidentiality of Alcohol and Drug Abuse Patient Records regulations: The Federal rules restrict any use of the information to criminally investigate or prosecute any alcohol or drug abuse patient.[facility]In the event this information is protected by the Federal Confidentiality of Alcohol and Drug Abuse Patient Records regulations: The Federal rules restrict any use of the information to criminally investigate or prosecute any alcohol or drug abuse patient.[facility]In the event this information is protected by the Federal Confidentiality of Alcohol and Drug Abuse Patient Records regulations: The Federal rules restrict any use of the information to criminally investigate or prosecute any alcohol or drug abuse patient.[facility]In the event this information is protected by the Federal Confidentiality of Alcohol and Drug Abuse Patient Records regulations: The Federal rules restrict any use of the information to criminally investigate or prosecute any alcohol or drug abuse patient.[facility]In the event this information is protected by the Federal Confidentiality of Alcohol and Drug Abuse Patient Records regulations: The Federal rules restrict any use of the information to criminally investigate or prosecute any alcohol or drug abuse patient.[facility]In the event this information is protected by the Federal Confidentiality of Alcohol and Drug Abuse Patient Records regulations: The Federal rules restrict any use of the information to criminally investigate or prosecute any alcohol or drug abuse patient.[facility]In the event this information is protected by the Federal Confidentiality of Alcohol and Drug Abuse Patient Records regulations: The Federal rules restrict any use of the information to criminally investigate or prosecute any alcohol or drug abuse patient.[facility]In the event this information is protected by the Federal Confidentiality of Alcohol and Drug Abuse Patient Records regulations: The Federal rules restrict any use of the information to criminally investigate or prosecute any alcohol or drug abuse patient.[facility]In the event this information is protected by the Federal Confidentiality of Alcohol and Drug Abuse Patient Records regulations: The Federal rules restrict any use of the information to criminally investigate or prosecute any alcohol or drug abuse patient.[facility]In the event this information is protected by the Federal Confidentiality of Alcohol and Drug Abuse Patient Records regulations: The Federal rules restrict any use of the information to criminally investigate or prosecute any alcohol or drug abuse patient.[facility]In the event this information is protected by the Federal Confidentiality of Alcohol and Drug Abuse Patient Records regulations: The Federal rules restrict any use of the information to criminally investigate or prosecute any alcohol or drug abuse patient.[facility]In the event this information is protected by the Federal Confidentiality of Alcohol and Drug Abuse Patient Records regulations: The Federal rules restrict any use of the information to criminally investigate or prosecute any alcohol or drug abuse patient.[facility]In the event this information is protected by the Federal Confidentiality of Alcohol and Drug Abuse Patient Records regulations: The Federal rules restrict any use of the information to criminally investigate or prosecute any alcohol or drug abuse patient.[facility]In the event this information is protected by the Federal Confidentiality of Alcohol and Drug Abuse Patient Records regulations: The Federal rules restrict any use of the information to criminally investigate or prosecute any alcohol or drug abuse patient.[facility]In the event this information is protected by the Federal Confidentiality of Alcohol and Drug Abuse Patient Records regulations: The Federal rules restrict any use of the information to criminally investigate or prosecute any alcohol or drug abuse patient.[facility]In the event this information is protected by the Federal Confidentiality of Alcohol and Drug Abuse Patient Records regulations: The Federal rules restrict any use of the information to criminally investigate or prosecute any alcohol or drug abuse patient.[facility]In the event this information is protected by the Federal Confidentiality of Alcohol and Drug Abuse Patient Records regulations: The Federal rules restrict any use of the information to criminally investigate or prosecute any alcohol or drug abuse patient.[facility]In the event this information is protected by the Federal Confidentiality of Alcohol and Drug Abuse Patient Records regulations: The Federal rules restrict any use of the information to criminally investigate or prosecute any alcohol or drug abuse patient.[facility]In the event this information is protected by the Federal Confidentiality of Alcohol and Drug Abuse Patient Records regulations: The Federal rules restrict any use of the information to criminally investigate or prosecute any alcohol or drug abuse patient.[facility]In the event this information is protected by the Federal Confidentiality of Alcohol and Drug Abuse Patient Records regulations: The Federal rules restrict any use of the information to criminally investigate or prosecute any alcohol or drug abuse patient.[facility]In the event this information is protected by the Federal Confidentiality of Alcohol and Drug Abuse Patient Records regulations: The Federal rules restrict any use of the information to criminally investigate or prosecute any alcohol or drug abuse patient.[facility]In the event this information is protected by the Federal Confidentiality of Alcohol and Drug Abuse Patient Records regulations: The Federal rules restrict any use of the information to criminally investigate or prosecute any alcohol or drug abuse patient.[facility]In the event this information is protected by the Federal Confidentiality of Alcohol and Drug Abuse Patient Records regulations: The Federal rules restrict any use of the information to criminally investigate or prosecute any alcohol or drug abuse patient.[facility]In the event this information is protected by the Federal Confidentiality of Alcohol and Drug Abuse Patient Records regulations: The Federal rules restrict any use of the information to criminally investigate or prosecute any alcohol or drug abuse patient.[facility]In the event this information is protected by the Federal Confidentiality of Alcohol and Drug Abuse Patient Records regulations: The Federal rules restrict any use of the information to criminally investigate or prosecute any alcohol or drug abuse patient.[facility]In the event this information is protected by the Federal Confidentiality of Alcohol and Drug Abuse Patient Records regulations: The Federal rules restrict any use of the information to criminally investigate or prosecute any alcohol or drug abuse patient.[facility]In the event this information is protected by the Federal Confidentiality of Alcohol and Drug Abuse Patient Records regulations: The Federal rules restrict any use of the information to criminally investigate or prosecute any alcohol or drug abuse patient.[facility]In the event this information is protected by the Federal Confidentiality of Alcohol and Drug Abuse Patient Records regulations: The Federal rules restrict any use of the information to criminally investigate or prosecute any alcohol or drug abuse patient.[facility]In the event this information is protected by the Federal Confidentiality of Alcohol and Drug Abuse Patient Records regulations: The Federal rules restrict any use of the information to criminally investigate or prosecute any alcohol or drug abuse patient.[facility] CenterIn the event this information is protected by the Federal Confidentiality of Alcohol and Drug Abuse Patient Records regulations: The Federal rules restrict any use of the information to criminally investigate or prosecute any alcohol or drug abuse patient.[facility] CenterIn the event this information is protected by the Federal Confidentiality of Alcohol and Drug Abuse Patient Records regulations: The Federal rules restrict any use of the information to criminally investigate or prosecute any alcohol or drug abuse patient.[facility] CenterIn the event this information is protected by the Federal Confidentiality of Alcohol and Drug Abuse Patient Records regulations: The Federal rules restrict any use of the information to criminally investigate or prosecute any alcohol or drug abuse patient.[facility] CenterIn the event this information is protected by the Federal Confidentiality of Alcohol and Drug Abuse Patient Records regulations: The Federal rules restrict any use of the information to criminally investigate or prosecute any alcohol or drug abuse patient.[facility] CenterIn the event this information is protected by the Federal Confidentiality of Alcohol and Drug Abuse Patient Records regulations: The Federal rules restrict any use of the information to criminally investigate or prosecute any alcohol or drug abuse patient.[facility] CenterIn the event this information is protected by the Federal Confidentiality of Alcohol and Drug Abuse Patient Records regulations: The Federal rules restrict any use of the information to criminally investigate or prosecute any alcohol or drug abuse patient.[facility] CenterIn the event this information is protected by the Federal Confidentiality of Alcohol and Drug Abuse Patient Records regulations: The Federal rules restrict any use of the information to criminally investigate or prosecute any alcohol or drug abuse patient.[facility] CenterIn the event this information is protected by the Federal Confidentiality of Alcohol and Drug Abuse Patient Records regulations: The Federal rules restrict any use of the information to criminally investigate or prosecute any alcohol or drug abuse patient.[facility] CenterIn the event this information is protected by the Federal Confidentiality of Alcohol and Drug Abuse Patient Records regulations: The Federal rules restrict any use of the information to criminally investigate or prosecute any alcohol or drug abuse patient.[facility] CenterIn the event this information is protected by the Federal Confidentiality of Alcohol and Drug Abuse Patient Records regulations: The Federal rules restrict any use of the information to criminally investigate or prosecute any alcohol or drug abuse patient.[facility] CenterIn the event this information is protected by the Federal Confidentiality of Alcohol and Drug Abuse Patient Records regulations: The Federal rules restrict any use of the information to criminally investigate or prosecute any alcohol or drug abuse patient.[facility] CenterIn the event this information is protected by the Federal Confidentiality of Alcohol and Drug Abuse Patient Records regulations: The Federal rules restrict any use of the information to criminally investigate or prosecute any alcohol or drug abuse patient.[facility] CenterIn the event this information is protected by the Federal Confidentiality of Alcohol and Drug Abuse Patient Records regulations: The Federal rules restrict any use of the information to criminally investigate or prosecute any alcohol or drug abuse patient.[facility] CenterIn the event this information is protected by the Federal Confidentiality of Alcohol and Drug Abuse Patient Records regulations: The Federal rules restrict any use of the information to criminally investigate or prosecute any alcohol or drug abuse patient.[facility] CenterIn the event this information is protected by the Federal Confidentiality of Alcohol and Drug Abuse Patient Records regulations: The Federal rules restrict any use of the information to criminally investigate or prosecute any alcohol or drug abuse patient.[facility] CenterIn the event this information is protected by the Federal Confidentiality of Alcohol and Drug Abuse Patient Records regulations: The Federal rules restrict any use of the information to criminally investigate or prosecute any alcohol or drug abuse patient.[facility] CenterIn the event this information is protected by the Federal Confidentiality of Alcohol and Drug Abuse Patient Records regulations: The Federal rules restrict any use of the information to criminally investigate or prosecute any alcohol or drug abuse patient.[facility] CenterIn the event this information is protected by the Federal Confidentiality of Alcohol and Drug Abuse Patient Records regulations: The Federal rules restrict any use of the information to criminally investigate or prosecute any alcohol or drug abuse patient.[facility] CenterIn the event this information is protected by the Federal Confidentiality of Alcohol and Drug Abuse Patient Records regulations: The Federal rules restrict any use of the information to criminally investigate or prosecute any alcohol or drug abuse patient.[facility] CenterIn the event this information is protected by the Federal Confidentiality of Alcohol and Drug Abuse Patient Records regulations: The Federal rules restrict any use of the information to criminally investigate or prosecute any alcohol or drug abuse patient.[facility] CenterIn the event this information is protected by the Federal Confidentiality of Alcohol and Drug Abuse Patient Records regulations: The Federal rules restrict any use of the information to criminally investigate or prosecute any alcohol or drug abuse patient.[facility] the event this information is protected by the Federal Confidentiality of Alcohol and Drug Abuse Patient Records regulations: The Federal rules restrict any use of the information to criminally investigate or prosecute any alcohol or drug abuse patient.[facility] CenterIn the event this information is protected by the Federal Confidentiality of Alcohol and Drug Abuse Patient Records regulations: The Federal rules restrict any use of the information to criminally investigate or prosecute any alcohol or drug abuse patient.[facility] CenterIn the event this information is protected by the Federal Confidentiality of Alcohol and Drug Abuse Patient Records regulations: The Federal rules restrict any use of the information to criminally investigate or prosecute any alcohol or drug abuse patient.[facility] CenterIn the event this information is protected by the Federal Confidentiality of Alcohol and Drug Abuse Patient Records regulations: The Federal rules restrict any use of the information to criminally investigate or prosecute any alcohol or drug abuse patient.[facility] CenterIn the event this information is protected by the Federal Confidentiality of Alcohol and Drug Abuse Patient Records regulations: The Federal rules restrict any use of the information to criminally investigate or prosecute any alcohol or drug abuse patient.[facility] CenterIn the event this information is protected by the Federal Confidentiality of Alcohol and Drug Abuse Patient Records regulations: The Federal rules restrict any use of the information to criminally investigate or prosecute any alcohol or drug abuse patient.[facility] CenterIn the event this information is protected by the Federal Confidentiality of Alcohol and Drug Abuse Patient Records regulations: The Federal rules restrict any use of the information to criminally investigate or prosecute any alcohol or drug abuse patient.[facility] CenterIn the event this information is protected by the Federal Confidentiality of Alcohol and Drug Abuse Patient Records regulations: The Federal rules restrict any use of the information to criminally investigate or prosecute any alcohol or drug abuse patient.[facility] Reason for Visit (unrecogniz ed section and content) Reason Comments New Pain Specialty Diagnoses / Procedures Referred By Contac t Referred To Contact Orthopedics Diagnoses Chronic pain of left knee Procedures CONSULT TO ORTHOPAEDICS OFFICE/OUTPATIENT NEW HIGH MDM 60-74 MINUTES Ignacio Cheatham MD [address] [place] [address] Referral ID Status Reason Start Date Expiration Date V isits Requested Visits Authorized [id number] Closed PCP Requested Referral 03/21/2022 03/21/2023 [address] Specialty Diagnoses / Procedures Referred By Contac t Referred To Contact TRANSPLANT Diagnoses Type II diabetes mellitus with complication (HCC) Hypertension, unspecified type Procedures CONSULT TO TRANSPL[facility] CENTER OFFICE/OUTPATIENT NEW HIGH MDM 60-74 MINUTES CHEST X-RAY, FRONT&LAT ECG ROUTINE ECG W/LEAST 12 LDS TRCG ONLY W/O I&R CT ANGIOGRAPHY CHEST W/CONTRAST/NONCONTRAST CT ABDOMEN W & W/O CONTRAST Goldy Hunter DO [address] [place] [id number] [facility] [address] [place] [id number] Referral ID Status Reason Start Date Expiration Date Visits Requested Visits Authorized [id number] 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 Patient Cleared INN/SMCP Payor Auth Obtained 04/22/2021 04/22/2022 99 99 Reason Comments Diarrhea vomiting x 3 days Reason Comments Results Reason Comments Follow Up 3 month follow up Reason Comments Appointment Reason Comments New Patient Diabetes Specialty Diagnoses / Procedures Referred By Contac t Referred To Contact Endocrinology Diagnoses Type 2 diabetes, controlled, with neuropathy (HCC) Procedures CONSULT TO ENDOCRINOLOGY OFFICE/OUTPATIENT [facility] 60-74 MINUTES Ignacio Cheatham MD [address] [place] [address] Referral ID Status Reason Start Date Expiration Date V isits Requested Visits Authorized [id number] Closed PCP Requested Referral 05/08/2021 05/08/2022 1 1 Reason Comments Patient Education Reason Comments Transplant Evaluation Reason Comments Patient Education Assessment Specialty Diagnoses / Procedures Referred By Contac t Referred To Contact CT IMAGING Diagnoses Pre-transplant evaluation for kidney transplant Procedures CT ABD/PEL WO IVCON CT ABD & PELVIS W/O CONTRAST Linda Livingston MD [address] [place] [address] Ct Imaging Referral ID Status Reason Start Date Expiration Date V isits Requested Visits Authorized [id number] Closed Auto-Generated Referral Patient Cleared - INN Insurance Found 06/20/2021 07/19/2021 1 1 Reason Onset Date Comments Refill Request 07/26/2021 Reason Comments Dizziness low blood pressure, abdominal pain Reason Comments Patient Update Reason Comments Follow Up ER 07/29/2021 Reason Comments Follow Up Reason Comments Patient Question Reason Comments Chronic Kidney Disease Specialty Diagnoses / Procedures Referred By Contac t Referred To Contact Vascular Surgery Diagnoses Stage 5 chronic kidney disease not on chronic dialysis (HCC) Procedures CONSULT TO VASCULAR SURGERY OFFICE/OUTPATIENT [facility] 60-74 MINUTES Fab Cochran, CUSTOMS ENTRY CLERK.BENEFITS ADMINISTRATOR [address] [place] [address] Referral ID Status Reason Start Date Expiration Date V isits Requested Visits Authorized [id number] Closed PCP Requested Referral 08/01/2021 07/30/2022 1 1 Reason Comments Radiology [place] Reason Comments Forms Reason Comments Established Patient Veinmapping Reason Comments Follow Up 3 month follow up dental infection few teeth that are b othering her can't get into dentist for a week Reason Comments Follow Up Specialty Diagnoses / Procedures Referred By Contac t Referred To Contact Endocrinology Diagnoses Type 2 diabetes, controlled, with neuropathy (HCC) Procedures CONSULT TO ENDOCRINOLOGY OFFICE/OUTPATIENT [facility] 60-74 MINUTES Ignacio Cheatham MD [address] [place] [address] Reason Comments Nurse Triage Call Reason Comments Head Congestion chest congestion, josef dyaches, sore throat, headache, nausea x 2 days Reason Comments Spirometry Specialty Diagnoses / Procedures Referred By Contac t Referred To Contact [facility] Diagnoses Pulmonary nodules Procedures SPIROMETRY - BASELINE AND POST DILATOR BRNCDILAT RSPSE SPMTRY PRE&POST-BRNCDILAT ADMN Dorene Macias MD [address] [place] [address] [facility] [address] [place] [id number] Referral ID Status Reason Start Date Expiration Date V isits Requested Visits Authorized [id number] Closed Auto-Generate d Referral 10/28/2021 11/27/2022 1 1 Specialty Diagnoses / Procedures Referred By Contac t Referred To Contact Diagnoses Poorly controlled type 2 diabetes mellitus (HCC) Procedures CONSULT TO DIABETES EDUCATION OFFICE/OUTPATIENT [facility] 60-74 MINUTES Rojelio Clark MD [address] [place] [address] Referral ID Status Reason Start Date Expiration Date V isits Requested Visits Authorized [id number] Closed PCP Requested Referral 10/02/2021 10/02/2022 1 1 Specialty Diagnoses / Procedures Referred By Contac t Referred To Contact [facility] Diagnoses Pulmonary nodules Procedures LUNG VOLUMES Dorene Macias MD [address] [place] [address] [facility] [address] [place] [address] Referral ID Status Reason Start Date Expiration Date V isits Requested Visits Authorized [id number] Closed Auto-Generate d Referral 10/28/2021 11/27/2022 1 1 Specialty Diagnoses / Procedures Referred By Contac t Referred To Contact [facility] Diagnoses Pulmonary nodules Procedures LUNG DIFFUSION CAPACITY (DLCO) DIFFUSING CAPACITY Dorene Macias MD [address] [place] [address] [facility] [address] [place] [id number] Referral ID Status Reason Start Date Expiration Date V isits Requested Visits Authorized [id number] Closed Auto-Generate d Referral 10/28/2021 11/27/2022 1 1 Reason Comments Refill Request Reason Comments Chronic Kidney Disease Monthly Touch Poi nt Call - OTP Reason Onset Date Comments Refill Request 12/05/2021 Reason Comments New Patient Specialty Diagnoses / Procedures Referred By Contac t Referred To Contact Diagnoses Anemia of renal disease Procedures CONSULT TO HEMATOLOGY/ONCOLOGY OFFICE/OUTPATIENT NEW HIGH MDM 60-74 MINUTES Fab Cochran, CUSTOMS ENTRY CLERK.BENEFITS ADMINISTRATOR [address] [place] [address] Referral ID Status Reason Start Date Expiration Date V isits Requested Visits Authorized [id number] Closed PCP Requested Referral 12/05/2021 12/04/2022 1 1 Reason Comments Results Treatment Planning Reason Comments Chronic Kidney Disease OTP - monthly caleb ch point call Reason Comments Non-Chemotherapy Treatment Specialty Diagnoses / Procedures [facility] Referred To Contact Diagnoses Iron malabsorption H/O gastric bypass Chronic kidney disease (CKD), stage IV (severe) (HCC) Anemia in chronic kidney disease Procedures IRON SUCROSE INJECTION PER 1 MG Teagan Spencer MD [address] [place] [address] [facility] [address] [place] [address] Referral ID Status Reason Start Date Expiration Date V isits Requested Visits Authorized [id number] Authorized 12/24/2021 02/26/2022 5 5 Reason Comments Imm/Inj Specialty Diagnoses / Procedures Referred By Contac t Referred To Contact Diagnoses Iron malabsorption H/O gastric bypass Chronic kidney disease (CKD), stage IV (severe) (HCC) Anemia of renal disease Procedures INJ RETACRIT NON-ESRD USE (RETACRIT) Teagan Spencer MD [address] [place] [address] [facility] [address] [place] [address] Referral ID Status Reason Start Date Expiration Date V isits Requested Visits Authorized [id number] Authorized 12/18/2021 03/01/2022 99 99 Reason Comments Pain (foot) left x few days, uns ure of injury, bruising Specialty Diagnoses / Procedures Referred By Allison t Referred To Contact Podiatry Diagnoses Poorly controlled diabetes mellitus (HCC) Onychomycosis Procedures CONSULT TO PODIATRY OFFICE/OUTPATIENT NEW HIGH MDM 60-74 MINUTES Ignacio Cheatham MD [address] [place] [address] Referral ID Status Reason Start Date Expiration Date V isits Requested Visits Authorized [id number] Closed PCP Requested Referral 03/26/2021 03/26/2022 1 1 Reason Comments Cough Pt reported + Flu ex posure, diarrhea, Blake x 5 days. Reason Comments Urinary Frequency Frequency, burning , spasms x 3 days Reason Comments FMLA Paperwork A[employer] FMLA paperwork Reason Onset Date Comments Refill Request 04/29/2022 Reason Comments CKD Follow Up OTP Reason Comments no show Reason Comments Follow Up Chronic kidney disea se Reason Onset Date Comments Refill Request 06/07/2022 Reason Comments New Knee Pain Reason Comments Procedure Reason Comments CKD Follow Up Optimal Transition P rogram Reason Comments Urinary Frequency Frequency, burning, nausea and bladder spasms x 2 days Reason Onset Date Comments Refill Request 06/25/2022 Reason Comments Consult Reason Comments Edema Pt reported (LT) arm swelling, redness irritation x1 wk after surgery. Reason Comments Returning Patient's Call Appointment Reason Onset Date Comments Transition Of Care 08/05/2022 TCM Initial H ospital Discharge 08/04/2022 Reason Onset Date Comments Hospital F/U 07/31/2022 Reason Comments Orders Reason Onset Date Comments Transition Of Care 08/05/2022 TCM Pharmacy- Hospital discharge 08/04/22 Reason Comments Orders Reason Comments Patient Update Optimal Transition P rogram - Dialysis Specialty Diagnoses / Procedures Referred By Allison beasley Referred To Contact Diagnoses Iron malabsorption H/O gastric bypass Chronic kidney disease (CKD), stage IV (severe) (HCC) Anemia of renal disease Procedures INJ RETACRIT NON-ESRD USE (RETACRIT) Teagan Spencer MD [address] [place] [address] [facility] [address] [place] [address] Referral ID Status Reason Start Date Expiration Date V isits Requested Visits Authorized [id number] Authorized 12/18/2021 03/01/2023 99 99 Reason Comments Patient Update Vascular appt Reason Comments CKD Follow Up Optimal Transition P rogram/Prep for Dialysis Reason Comments ER F/U Reason Comments [place] Placement Reason Comments Supervisor - ED Follow Up Reason Comments Dialysis Reason Onset Date Comments CKD Follow Up Optimal Transiti on Program Patient Update 09/16/2022 Reason Comments Return Call Request Kidney Txp Evaluatio n Status Reason Comments Home Health Physical Therapy Order Reque st Reason Onset Date Comments Refill Request 10/14/2022 Reason Comments [facility] Reason Comments Hospital F/U Reason Comments ER F/U [facility] 10/30 for bilater al hand pain Reason Comments Short Term Disabiity Forms Reason Comments [facility], PT d/c pt on 3 Reason Comments Urinary Frequency Frequency and burnin g x 3 days Reason Comments Erroneous encounter-disregard Reason Comments Short term disability paperwork Reason Comments Established Patient Right knee pain - CT scan (09/12/2022), US (10/15/2022) and xray from [facility] Specialty Diagnoses / Procedures Referred By Allison beasley Referred To Contact Orthopedics Diagnoses Pain of right lower extremity Procedures CONSULT TO ORTHOPAEDICS OFFICE/OUTPATIENT [facility] 60-74 MINUTES Ignacio Cheatham MD [address] [place] [address] Referral ID Status Reason Start Date Expiration Date V isits Requested Visits Authorized [id number] Closed PCP Requested Referral 10/20/2022 10/20/2023 1 1 Reason Comments Follow Up 5 weeks post visit right tibia stress fr acture Reason Comments Pt going to [facility] ER Reason Comments PA--TRULICITY Reason Comments Radiology CT Specialty Diagnoses / Procedures Referred By Allison beasley Referred To Contact CT IMAGING Diagnoses Lung nodules Procedures CT CHEST WO IVCON DIAGNOSTIC COMPUTED TOMOGRAPHY THORAX W/O CNTRST Ignacio Cheatham MD [address] [place] [address] [place] [address] Referral ID Status Reason Start Date Expiration Date V isits Requested Visits Authorized [id number] Closed Auto-Generate d Referral 03/20/2023 04/18/2023 1 1 Reason Comments Results Reason Comments Diabetic Eye Exam Type 2 IDDM Specialty Diagnoses / Procedures Referred By Contac t Referred To Contact Ophthalmology Diagnoses Type 2 diabetes, controlled, with neuropathy (HCC) Procedures CONSULT TO OPHTHALMOLOGY OFFICE/OUTPATIENT [facility] 60-74 MINUTES Ignacio Cheatham MD [address] [place] [address] Referral ID Status Reason Start Date Expiration Date V isits Requested Visits Authorized [id number] Closed PCP Requested Referral 08/11/2022 08/11/2023 1 1 Reason Comments Established Patient Follow Up Pain Swelling Numbness Diabetic Foot Care Diabetic Foot Ulcer Specialty Diagnoses / Procedures Referred By Contac t Referred To Contact Podiatry Diagnoses Neuropathy Type 2 diabetes, controlled, with neuropathy (HCC) Procedures CONSULT TO PODIATRY OFFICE/OUTPATIENT 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 Reason Comments FYI Reason Comments Post Op Follow Up Pain Reason Comments Orders Refill Request Reason Onset Date Comments Refill Request 07/13/2023 Reason Comments Infection Appointment Reason Comments Established Patient Follow Up Post Op Pain Reason Comments Post Op Reason Comments Hospital F/U skilled care follow up Reason Comments Follow Up Reason Comments Established Patient Follow Up Reason Comments Referral Request Reason Comments Established Patient Specialty Diagnoses / Procedures Referred By Contac t Referred To Contact Vascular Surgery Diagnoses ESRD (end stage renal disease) (HCC) Procedures CONSULT TO VASCULAR SURGERY OFFICE/OUTPATIENT [facility] 60 MINUTES Tresa Marcum APRN.CNP [address] [place] [address] Referral ID Status Reason Start Date Expiration Date V isits Requested Visits Authorized [id number] Closed PCP Requested Referral 12/11/2023 12/10/2024 1 1 Reason Comments Hospital F/U Reason Comments Medicaid Program Form Reason Comments Dental Problem R lower tooth pain x 3 days increasing, swelling Reason Comments Recheck 3 month follow up Reason Onset Date Comments Refill Request 06/08/2024 Reason Comments New Patient Evaluation Specialty Diagnoses / Procedures [facility] Referred To Contact Diagnoses CASSIE (obstructive sleep apnea) Procedures CONSULT TO SLEEP MEDICINE - ADULT OFFICE/OUTPATIENT NEW HIGH MDM 60 MINUTES Sha Myrick MD [address] [place] [address] Phone: tel: fax: Referral ID Status Reason Start Date Expiration Date V isits Requested Visits Authorized [id number] Closed PCP Requested Referral 01/12/2024 01/11/2025 1 1 Reason Comments type 2 diabetes Specialty Diagnoses / Procedures [facility] Referred To Contact Endocrinology Diagnoses Type 2 diabetes, controlled, with neuropathy (HCC) Procedures CONSULT TO ENDOCRINOLOGY OFFICE/OUTPATIENT NEW HIGH MDM 60 MINUTES Tresa Marcum, PATRICE.BENEFITS ADMINISTRATOR [address] [place] [address] Phone: tel: fax: Referral ID Status Reason Start Date Expiration Date V isits Requested Visits Authorized [id number] Closed PCP Requested Referral 06/01/2024 06/01/2025 1 1 Reason Comments Supervisor - Other Prior Auth Reason Comments Diabetic Eye Exam Type 2 Specialty Diagnoses / Procedures [facility] Referred To Contact [facility] Diagnoses Lung nodules Procedures CT CHEST WO IVCON DIAGNOSTIC COMPUTED TOMOGRAPHY THORAX W/O CNTRST Tresa Marcum, PATRICE.BENEFITS ADMINISTRATOR [address] [place] [address] Phone: tel: fax: [place] [address] Referral ID Status Reason Start Date Expiration Date V isits Requested Visits Authorized [id number] Closed Auto-Generate d Referral 06/01/2024 07/01/2025 1 1 Reason Comments No Show Missed #1 Reason Comments Cough Chest congestion x 5 days Reason Comments Insurance Authorization Trulicity Reason Comments Appointment Needs to change time for procedure Reason Comments FYI-No Action Needed Reason Comments Breathing Problem Reason Comments New Patient Lung nodules/pre op Nodule Reason Onset Date Comments Refill Request 09/10/2024 Reason Comments Insurance Authorization Reason Onset Date Comments Results - Ct 07/29/2024 Reason Onset Date Comments Refill Request 09/26/2024 Care Teams (unrecognized sec tion and content) Calendar Control Clerk Blood Bank Relationship Specialty Start Date End Date Ignacio Cheatham MD [address] [place] [address] PCP - General Family Practice 04/16/17 [facility] [address] [place] [address] Pharmacist Pharmacy 05/17/20 Calendar Control Clerk Blood Bank Relationship Specialty Start Date End Date Ignacio Cheatham MD [address] [place] [address] PCP - General Family Practice 04/16/17 [facility] [address] [place] [address] Pharmacist Pharmacy 05/17/20 Calendar Control Clerk Blood Bank Relationship Specialty Start Date End Date Ignacio Cheatham MD [address] [place] [address] PCP - General Family Practice 04/16/17 [facility] [address] [place] [address] Pharmacist Pharmacy 05/17/20 Calendar Control Clerk Blood Bank Relationship Specialty Start Date End Date Ignacio Cheatham MD [address] [place] [address] PCP - General Family Practice 04/16/17 [facility] [address] [place] [address] Pharmacist Pharmacy 05/17/20 Calendar Control Clerk Blood Bank Relationship Specialty Start Date End Date Ignacio Cheatham MD [address] [place] [address] PCP - General Family Practice 04/16/17 [facility] [address] [facility] [place] [address] Pharmacist Pharmacy 05/17/20 Calendar Control Clerk Blood Bank Relationship Specialty Start Date End Date Ignacio Cheatham MD [address] [place] [address] PCP - General Family Practice 04/16/17 [facility] [address] [facility] [place] [address] Pharmacist Pharmacy 05/17/20 Calendar Control Clerk Blood Bank Relationship Specialty Start Date End Date Ignacio Cheatham MD [address] [place] [address] PCP - General Family Practice 04/16/17 [facility] [address] [place] [address] Pharmacist Pharmacy 05/17/20 Calendar Control Clerk Blood Bank Relationship Specialty Start Date End Date Ignacio Cheatham MD [address] [place] [address] PCP - General Family Practice 04/16/17 [facility]VickiUniversity [facility] [address] [facility] [place] [address] Pharmacist Pharmacy 05/17/20 Calendar Control Clerk Blood Bank Relationship Specialty Start Date End Date Ignacio Cheatham MD [address] [place] [address] PCP - General Family Practice 04/16/17 [facility] [address] [facility] [place] [address] Pharmacist Pharmacy 05/17/20 Calendar Control Clerk Blood Bank Relationship Specialty Start Date End Date Ignacio Cheatham MD [address] [place] [address] PCP - General Family Practice 04/16/17 Vicki White, [facility] [address] [facility] [place] [address] Pharmacist Pharmacy 05/17/20 Calendar Control Clerk Blood Bank Relationship Specialty Start Date End Date Ignacio Cheatham MD [address] [place] [address] PCP - General Family Practice 04/16/17 Vicki White, [facility] [address] [facility] [place] [address] Pharmacist Pharmacy 05/17/20 Calendar Control Clerk Blood Bank Relationship Specialty Start Date End Date Ignacio Cheatham MD [address] [place] [address] PCP - General Family Practice 04/16/17 V[facility] [address] [facility] [place] [address] Pharmacist Pharmacy 05/17/20 Calendar Control Clerk Blood Bank Relationship Specialty Start Date End Date Ignacio Cheatham MD [address] [place] [address] PCP - General Family Practice 04/16/17 Kaiserivanna Nicolasjodi, [facility] [address] [facility] [place] [address] Pharmacist Pharmacy 05/17/20 Calendar Control Clerk Blood Bank Relationship Specialty Start Date End Date Ignacio Cheatham MD [address] [place] [address] PCP - General Family Practice 04/16/17 Vicki White, [facility] [address] [facility] [place] [address] Pharmacist Pharmacy 05/17/20 Calendar Control Clerk Blood Bank Relationship Specialty Start Date End Date Ignacio Cheatham MD [address] [place] [address] PCP - General Family Practice 04/16/17 [facility] HospitalV[facility] goncalvesUniversity [facility] [address] [place] [address] Pharmacist Pharmacy 05/17/20 Calendar Control Clerk Blood Bank Relationship Specialty Start Date End Date Ignacio Cheatham MD [address] [place] [address] PCP - General Family Practice 04/16/17 [facility]icki[facility] [address] [facility] [place] [address] Pharmacist Pharmacy 05/17/20 Calendar Control Clerk Blood Bank Relationship Specialty Start Date End Date Ignacio Cheatham MD [address] [place] [address] PCP - General Family Practice 04/16/17 Vicki [facility] [address] [facility] [place] [address] Pharmacist Pharmacy 05/17/20 Calendar Control Clerk Blood Bank Relationship Specialty Start Date End Date Ignacio Cheatham MD [address] [place] [address] PCP - General Family Practice 04/16/17 [facility] [address] [place] [address] Pharmacist Pharmacy 05/17/20 Calendar Control Clerk Blood Bank Relationship Specialty Start Date End Date Ignacio Cheatham MD [address] [place] [address] PCP - General Family Practice 04/16/17 [facility]VickiUniversity [facility] [address] [facility] [place] [address] Pharmacist Pharmacy 05/17/20 Calendar Control Clerk Blood Bank Relationship Specialty Start Date End Date Ignacio Cheatham MD [address] [place] [address] PCP - General Family Practice 04/16/17 Vicki [facility] [address] [place] [address] Pharmacist Pharmacy 05/17/20 Calendar Control Clerk Blood Bank Relationship Specialty Start Date End Date Ignacio Cheatham MD [address] [place] [address] PCP - General Family Practice 04/16/17 Vicki [facility] [address] [place] [address] Pharmacist Pharmacy 05/17/20 Calendar Control Clerk Blood Bank Relationship Specialty Start Date End Date Ignacio Cheatham MD [address] [place] [address] PCP - General Family Practice 04/16/17 Vicki [facility] [address] [place] [address] Pharmacist Pharmacy 05/17/20 Calendar Control Clerk Blood Bank Relationship Specialty Start Date End Date Ignacio Cheatham MD [address] [place] [address] PCP - General Family Practice 04/16/17 Vicki [facility] [address] [place] [address] Pharmacist Pharmacy 05/17/20 Calendar Control Clerk Blood Bank Relationship Specialty Start Date End Date Ignacio Cheatham MD [address] [place] [address] PCP - General Family Practice 04/16/17 KaiserVicki, [facility] [address] [place] [address] Pharmacist Pharmacy 05/17/20 Calendar Control Clerk Blood Bank Relationship Specialty Start Date End Date Ignacio Cheatham MD [address] [facility] [place] [address] PCP - General Family Medicine 04/16/17 Vicki White, [facility] [address] [facility] [place] [address] Pharmacist Pharmacy 05/17/20 Calendar Control Clerk Blood Bank Relationship Specialty Start Date End Date Ignacio Cheatham MD [address] [place] [address] PCP - General Family Medicine 04/16/17 Vicki White, [facility] [address] [facility] [place] [address] Pharmacist Pharmacy 05/17/20 Calendar Control Clerk Blood Bank Relationship Specialty Start Date End Date Ignacio Cheatham MD [address] [place] [address] PCP - General Family Medicine 04/16/17 Vicki White, [facility] [address] [facility] [place] [address] Pharmacist Pharmacy 05/17/20 Calendar Control Clerk Blood Bank Relationship Specialty Start Date End Date Ignacio Cheatham MD [address] [place] [address] PCP - General Family Medicine 04/16/17 Vicki White, [facility] [address] [facility] [place] [address] Pharmacist Pharmacy 05/17/20 Calendar Control Clerk Blood Bank Relationship Specialty Start Date End Date Ignacio Cheatham MD [address] [place] [address] PCP - General Family Medicine 04/16/17 Vicki White, [facility] [address] [facility] [place] [address] Pharmacist Pharmacy 05/17/20 Calendar Control Clerk Blood Bank Relationship Specialty Start Date End Date Ignacio Cheatham MD [address] [place] [address] PCP - General Family Medicine 04/16/17 Vicki White, [facility] [address] [place] [address] Pharmacist Pharmacy 05/17/20 Calendar Control Clerk Blood Bank Relationship Specialty Start Date End Date Ignacio Cheatham MD [address] [place] [address] PCP - General Family Medicine 04/16/17 Vicki [facility] [address] [place] [address] Pharmacist Pharmacy 05/17/20 Calendar Control Clerk Blood Bank Relationship Specialty Start Date End Date Ignacio Cheatham MD [address] [place] [address] PCP - General Family Medicine 04/16/17 Vicki [facility] [address] [place] [address] Pharmacist Pharmacy 05/17/20 Kaylin Carranza (Rn), RN Specialty Supervisor Nephrology 12/06/21 Calendar Control Clerk Blood Bank Relationship Specialty Start Date End Date Ignacio Cheatham MD [address] [place] [address] PCP - General Family Medicine 04/16/17 Vicki [facility] [address] [place] [address] Pharmacist Pharmacy 05/17/20 Kaylin Carranza (Rn), RN Specialty Supervisor Nephrology 12/06/21 Calendar Control Clerk Blood Bank Relationship Specialty Start Date End Date Ignacio Cheatham MD [address] [place] [address] PCP - General Family Medicine 04/16/17 [facility] [address] [place] [address] Pharmacist Pharmacy 05/17/20 Kaylin Carranza (Rn), RN Specialty Supervisor Nephrology 12/06/21 Calendar Control Clerk Blood Bank Relationship Specialty Start Date End Date Ignacio Cheatham MD [address] [place] [address] PCP - General Family Medicine 04/16/17 [facility] [address] [place] [address] Pharmacist Pharmacy 05/17/20 Kaylin Carranza (Rn), RN Specialty Supervisor Nephrology 12/06/21 Calendar Control Clerk Blood Bank Relationship Specialty Start Date End Date Ignacio Cheatham MD [address] [place] [address] PCP - General Family Medicine 04/16/17 [facility] [address] [place] [address] Pharmacist Pharmacy 05/17/20 Kaylin Carranza (Rn), RN Specialty Supervisor Nephrology 12/06/21 Calendar Control Clerk Blood Bank Relationship Specialty Start Date End Date Ignacio Cheatham MD [address] [place] [address] PCP - General Family Medicine 04/16/17 [facility] [address] [place] [address] Pharmacist Pharmacy 05/17/20 Kaylin Carranza (Rn), RN Specialty Supervisor Nephrology 12/06/21 Calendar Control Clerk Blood Bank Relationship Specialty Start Date End Date Ignacio Cheatham MD [address] [place] [address] PCP - General Family Medicine 04/16/17 [facility] [address] [place] [address] Pharmacist Pharmacy 05/17/20 Kaylin Carranza (Rn), RN Specialty Supervisor Nephrology 12/06/21 Calendar Control Clerk Blood Bank Relationship Specialty Start Date End Date Ignacio Cheatham MD [address] [place] [address] PCP - General Family Medicine 04/16/17 Vicki [facility] [address] [facility] [place] [address] Pharmacist Pharmacy 05/17/20 Kaylin Carranza (Rn), RN Specialty Supervisor Nephrology 12/06/21 Calendar Control Clerk Blood Bank Relationship Specialty Start Date End Date Ignacio Cheatham MD [address] [place] [address] PCP - General Family Medicine 04/16/17 Vicki [facility] [address] [place] [address] Pharmacist Pharmacy 05/17/20 Kaylin Carranza (Rn), RN Specialty Supervisor Nephrology 12/06/21 Calendar Control Clerk Blood Bank Relationship Specialty Start Date End Date Ignacio Cheatham MD [address] [place] [address] PCP - General Family Medicine 04/16/17 Vicki [facility] [address] [facility] [place] [address] Pharmacist Pharmacy 05/17/20 Kaylin Carranza (Rn), RN Specialty Supervisor Nephrology 12/06/21 Calendar Control Clerk Blood Bank Relationship Specialty Start Date End Date Ignacio Cheatham MD [address] [facility] [place] [address] PCP - General Family Medicine 04/16/17 Vicki [facility] [address] [place] [address] Pharmacist Pharmacy 05/17/20 Kaylin Carranza (Rn), RN Specialty Supervisor Nephrology 12/06/21 Calendar Control Clerk Blood Bank Relationship Specialty Start Date End Date Ignacio Cheatham MD [address] [place] [address] PCP - General Family Medicine 04/16/17 Vicki [facility] [address] [place] [address] Pharmacist Pharmacy 05/17/20 Kaylin Carranza (Rn), RN Specialty Supervisor Nephrology 12/06/21 Calendar Control Clerk Blood Bank Relationship Specialty Start Date End Date Ignacio Cheatham MD [address] [place] [address] PCP - General Family Medicine 04/16/17 Vicki [facility] [address] [place] [address] Pharmacist Pharmacy 05/17/20 Kaylin Carranza (Rn), RN Specialty Supervisor Nephrology 12/06/21 Calendar Control Clerk Blood Bank Relationship Specialty Start Date End Date Ignacio Cheatham MD [address] [place] [address] PCP - General Family Medicine 04/16/17 Vicki [facility] [address] [place] [address] Pharmacist Pharmacy 05/17/20 Kaylin Carranza, RN Specialty Supervisor Nephrology 12/06/21 Calendar Control Clerk Blood Bank Relationship Specialty Start Date End Date Ignacio Cheatham MD [address] [place] [address] PCP - General Family Medicine 04/16/17 Vicki [facility] [address] [place] [address] Pharmacist Pharmacy 05/17/20 Kaylin Carranza, RN Specialty Supervisor Nephrology 12/06/21 Calendar Control Clerk Blood Bank Relationship Specialty Start Date End Date Ignacio Cheatham MD [address] [place] [address] PCP - General Family Medicine 04/16/17 Vicki [facility] [address] [place] [address] Pharmacist Pharmacy 05/17/20 Kaylin Carranza, RN Specialty Supervisor Nephrology 12/06/21 Calendar Control Clerk Blood Bank Relationship Specialty Start Date End Date Ignacio Cheatham MD [address] [place] [address] PCP - General Family Medicine 04/16/17 Vicki [facility] [address] [place] [address] Pharmacist Pharmacy 05/17/20 Kaylin Carranza RN Specialty Supervisor Nephrology 12/06/21 Calendar Control Clerk Blood Bank Relationship Specialty Start Date End Date Ignacio Cheatham MD [address] [place] [address] PCP - General Family Medicine 04/16/17 Vicki [facility] [address] [place] [address] Pharmacist Pharmacy 05/17/20 Kaylin Carrazna RN Specialty Supervisor Nephrology 12/06/21 Calendar Control Clerk Blood Bank Relationship Specialty Start Date End Date Ignacio Cheatham MD [address] [place] [address] PCP - General Family Medicine 04/16/17 Vicki White, [facility] [address] [place] [address] Pharmacist Pharmacy 05/17/20 Kaylin Carranza, GRACE Specialty Supervisor Nephrology 12/06/21 Calendar Control Clerk Blood Bank Relationship Specialty Start Date End Date Ignacio Cheatham MD [address] [place] [address] PCP - General Family Medicine 04/16/17 Vicki [facility] [address] [place] [address] Pharmacist Pharmacy 05/17/20 aKylin Carranza, GRACE Specialty Supervisor Nephrology 12/06/21 Calendar Control Clerk Blood Bank Relationship Specialty Start Date End Date Ignacio Cheatham MD [address] [place] [address] PCP - General Family Medicine 04/16/17 Vicki [facility] [address] [place] [address] Pharmacist Pharmacy 05/17/20 Kaylin Carranza RN Specialty Supervisor Nephrology 12/06/21 Calendar Control Clerk Blood Bank Relationship Specialty Start Date End Date Ignacio Cheatham MD [address] [place] [address] PCP - General Family Medicine 04/16/17 Vicki [facility] [address] [place] [address] Pharmacist Pharmacy 05/17/20 Kaylin Carranza RN Specialty Supervisor Nephrology 12/06/21 Calendar Control Clerk Blood Bank Relationship Specialty Start Date End Date Ignacio Cheatham MD [address] [place] [address] PCP - General Family Medicine 04/16/17 Vicki [facility] [address] [place] [address] Pharmacist Pharmacy 05/17/20 Kaylin Carranza, GRACE Specialty Supervisor Nephrology 12/06/21 Calendar Control Clerk Blood Bank Relationship Specialty Start Date End Date Ignacio Cheatham MD [address] [place] [address] PCP - General Family Medicine 04/16/17 Vicki [facility] [address] [place] [address] Pharmacist Pharmacy 05/17/20 Kaylin Carranza, GRACE Specialty Supervisor Nephrology 12/06/21 Calendar Control Clerk Blood Bank Relationship Specialty Start Date End Date Ignacio Cheatham MD [address] [place] [address] PCP - General Family Medicine 04/16/17 Vicki [facility] [address] [place] [address] Pharmacist Pharmacy 05/17/20 Kaylin Carranza, GRACE Specialty Supervisor Nephrology 12/06/21 Calendar Control Clerk Blood Bank Relationship Specialty Start Date End Date Ignacio Cheatham MD [address] [place] [address] PCP - General Family Medicine 04/16/17 Vicki [facility] [address] [place] [address] Pharmacist Pharmacy 05/17/20 Kaylin Carranza RN Specialty Supervisor Nephrology 12/06/21 Calendar Control Clerk Blood Bank Relationship Specialty Start Date End Date Ignacio Cheatham MD [address] [place] [address] PCP - General Family Medicine 04/16/17 Vicki [facility] [address] [place] [address] Pharmacist Pharmacy 05/17/20 Kaylin Carranza, GRACE Specialty Supervisor Nephrology 12/06/21 Calendar Control Clerk Blood Bank Relationship Specialty Start Date End Date Ignacio Cheatham MD [address] [place] [address] PCP - General Family Medicine 04/16/17 [facility] [address] [place] [address] Pharmacist Pharmacy 05/17/20 Kaylin Carranza, RN Specialty Supervisor Nephrology 12/06/21 Calendar Control Clerk Blood Bank Relationship Specialty Start Date End Date Ignacio Cheatham MD [address] [place] [address] PCP - General Family Medicine 04/16/17 [facility] [address] [place] [address] Pharmacist Pharmacy 05/17/20 Kaylin Carranza, RN Specialty Supervisor Nephrology 12/06/21 Calendar Control Clerk Blood Bank Relationship Specialty Start Date End Date Ignacio Cheatham MD [address] [place] [address] PCP - General Family Medicine 04/16/17 [facility] [address] [place] [address] Pharmacist Pharmacy 05/17/20 Kaylin Carranza, RN Specialty Supervisor Nephrology 12/06/21 Calendar Control Clerk Blood Bank Relationship Specialty Start Date End Date Ignacio Cheatham MD [address] [place] [address] PCP - General Family Medicine 04/16/17 [facility] [address] [place] [address] Pharmacist Pharmacy 05/17/20 Kaylin Carranza, RN Specialty Supervisor Nephrology 12/06/21 Lauren Bello [facility] Pharmacist Pharmacy 08/05/22 08/06/22 Chrissy Nieto, GRACE [address] [place] [id number] Primary Care Alliance Manager 08/05/22 09/02/22 Calendar Control Clerk Blood Bank Relationship Specialty Start Date End Date Ignacio Cheatham MD [address] [place] [address] PCP - General Family Medicine 04/16/17 Vicki [facility] [address] [place] [address] Pharmacist Pharmacy 05/17/20 Kaylin Carranza, RN Specialty Supervisor Nephrology 12/06/21 Lauren Bello [facility] Pharmacist Pharmacy 08/05/22 08/06/22 Chrissy Nieto, RN [address] [place] [address] Primary Care Alliance Manager 08/05/22 09/02/22 Calendar Control Clerk Blood Bank Relationship Specialty Start Date End Date Ignacio Cheatham MD [address] [place] [address] PCP - General Family Medicine 04/16/17 Vicki [facility] [address] [place] [address] Pharmacist Pharmacy 05/17/20 Kaylin Carranza RN Specialty Supervisor Nephrology 12/06/21 Lauren Bello [facility] Pharmacist Pharmacy 08/05/22 08/06/22 Chrissy Nieto, RN [address] [place], [place] [id number] Primary Care Alliance Manager 08/05/22 09/02/22 Calendar Control Clerk Blood Bank Relationship Specialty Start Date End Date Ignacio Cheatham MD [address] [place] [address] PCP - General Family Medicine 04/16/17 Vicki [facility] [address] [place] [address] Pharmacist Pharmacy 05/17/20 Kaylin Carranza, GRACE Specialty Supervisor Nephrology 12/06/21 Lauren Bello [facility] Pharmacist Pharmacy 08/05/22 08/06/22 Chrissy Nieto, RN [address] [place] [address] Primary Care Alliance Manager 08/05/22 09/02/22 Calendar Control Clerk Blood Bank Relationship Specialty Start Date End Date Ignacio Cheatham MD [address] [place] [address] PCP - General Family Medicine 04/16/17 Vicki White, [facility] [address] [place] [address] Pharmacist Pharmacy 05/17/20 Kaylin Carranza, GRACE Specialty Supervisor Nephrology 12/06/21 Chrissy Nieto, RN [address] [place] [address] Primary Care Alliance Manager 08/05/22 09/02/22 Calendar Control Clerk Blood Bank Relationship Specialty Start Date End Date Ignacio Cheatham MD [address] [place] [address] PCP - General Family Medicine 04/16/17 Vicki White, [facility] [address] [place] [address] Pharmacist Pharmacy 05/17/20 Kaylin Carranza, GRACE Specialty Supervisor Nephrology 12/06/21 Chrissy Nieto, GRACE [address] [place] [address] Primary Care Alliance Manager 08/05/22 09/02/22 Calendar Control Clerk Blood Bank Relationship Specialty Start Date End Date Ignacio Cheatham MD [address] [place] [address] PCP - General Family Medicine 04/16/17 Vicki White, [facility] [address] [place] [address] Pharmacist Pharmacy 05/17/20 Kaylin Carranza, GRACE Specialty Supervisor Nephrology 12/06/21 Chrissy Nieto, RN [address] [place], [place] [id number] Primary Care Alliance Manager 08/05/22 09/02/22 Calendar Control Clerk Blood Bank Relationship Specialty Start Date End Date Ignacio Cheatham MD [address] [place] [address] PCP - General Family Medicine 04/16/17 Vicki White, [facility] [address] [place] [address] Pharmacist Pharmacy 05/17/20 Kaylin Carranza, RN Specialty Supervisor Nephrology 12/06/21 Chrissy Nieto, GRACE [address] [place], [place] [id number] Primary Care Alliance Manager 08/05/22 09/02/22 Calendar Control Clerk Blood Bank Relationship Specialty Start Date End Date Ignacio Cheatham MD [address] [place] [address] PCP - General Family Medicine 04/16/17 Vicki White, [facility] [address] [place] [address] Pharmacist Pharmacy 05/17/20 Kaylin Carranza, RN Specialty Supervisor Nephrology 12/06/21 Chrissy Nieto, RN [address] [place] [address] Primary Care Alliance Manager 08/05/22 09/02/22 Calendar Control Clerk Blood Bank Relationship Specialty Start Date End Date Ignacio Cheatham MD [address] [place] [address] PCP - General Family Medicine 04/16/17 Vicki White, [facility] [address] [place] [address] Pharmacist Pharmacy 05/17/20 Kaylin Carranza, RN Specialty Supervisor Nephrology 12/06/21 Team Status: Active Member Role Status Dates Dr. Ignacio Cheatham MD Family Provider Active Dr. Ignacio Cheatham MD Primary Care Provider Active Team Status: Inactive Member Role Status Dates Dr. Ignacio Cheatham MD Primary Care Provider Active Dr. Quentin Kim DO Emergency Provider Active Calendar Control Clerk Blood Bank Relationship Specialty Start Date End Date Ignacio Cheatham MD [address] [place] [address] PCP - General Family Medicine 04/16/17 [facility] [address] [place] [address] Pharmacist Pharmacy 05/17/20 Kaylin Carranza, GRACE Specialty Supervisor Nephrology 12/06/21 Calendar Control Clerk Blood Bank Relationship Specialty Start Date End Date Ignacio Cheatham MD [address] [place] [address] PCP - General Family Medicine 04/16/17 [facility] [address] [place] [address] Pharmacist Pharmacy 05/17/20 Kaylin Carranza, GRACE Specialty Supervisor Nephrology 12/06/21 Calendar Control Clerk Blood Bank Relationship Specialty Start Date End Date Ignacio Cheatham MD [address] [place] [address] PCP - General Family Medicine 04/16/17 [facility] [address] [place] [address] Pharmacist Pharmacy 05/17/20 Kaylin Carranza, GRACE Specialty Supervisor Nephrology 12/06/21 Calendar Control Clerk Blood Bank Relationship Specialty Start Date End Date Ignacio Chetaham MD [address] [place] [address] PCP - General Family Medicine 04/16/17 Vicki White, [facility] [address] [place] [address] Pharmacist Pharmacy 05/17/20 Kaylin Carranza, GRACE Specialty Supervisor Nephrology 12/06/21 Calendar Control Clerk Blood Bank Relationship Specialty Start Date End Date Ignacio Cheatham MD [address] [place], [place] [id number] PCP - General Family Medicine 04/16/17 [facility] [address] [place] [address] Pharmacist Pharmacy 05/17/20 Kaylin Carranza, GRACE Specialty Supervisor Nephrology 12/06/21 Team Status: Active Member Role Status Dates Dr. Ignacio Cheatham MD Primary Care Provider Active Dr. Minh Arroyo DO Emergency Provider Active Dr. Lizzy Bragg MD Attending Provider Active Team Status: Active Member Role Status Dates Dr. Ignacio Cheatham MD Primary Care Provider Active Dr. Minh Arroyo DO Emergency Provider Active Dr. Lizzy Bragg MD Admit Provider, Other Provider Active Dr. Sylvester Ortiz DO Attending Provider, Other Provid er Active Team Status: Inactive Member Role Status Dates Dr. Ignacio Cheatham MD Primary Care Provider Active Dr. Minh Arroyo DO Emergency Provider Active Dr. Lizzy Bragg MD Admit Provider, Other Provider Active Dr. Sylvester Ortiz DO Attending Provider Active Team Status: Inactive Member Role Status Dates Dr. Ignacio Cheatham MD Primary Care Provider Active Dr. Quentin Kim DO Attending Provider, Emergency Provide r Active Calendar Control Clerk Blood Bank Relationship Specialty Start Date End Date Ignacio Cheatham MD [address] [place] [address] PCP - General Family Medicine 04/16/17 [facility] [address] [place] [address] Pharmacist Pharmacy 05/17/20 Calendar Control Clerk Blood Bank Relationship Specialty Start Date End Date Ignacio Cheatham MD [address] [place] [address] PCP - General Family Medicine 04/16/17 Vicki White, [facility] [address] [facility] [place] [address] Pharmacist Pharmacy 05/17/20 Calendar Control Clerk Blood Bank Relationship Specialty Start Date End Date Ignacio Cheatham MD [address] [place] [address] PCP - General Family Medicine 04/16/17 Vicki White, [facility] [address] [place] [address] Pharmacist Pharmacy 05/17/20 Calendar Control Clerk Blood Bank Relationship Specialty Start Date End Date Ignacio Cheatham MD [address] [place] [address] PCP - General Family Medicine 04/16/17 Vicki White, [facility] [address] [place] [address] Pharmacist Pharmacy 05/17/20 Calendar Control Clerk Blood Bank Relationship Specialty Start Date End Date Ignacio Cheatham MD [address] [place] [address] PCP - General Family Medicine 04/16/17 Vicki White, [facility] [address] [facility] [place] [address] Pharmacist Pharmacy 05/17/20 Calendar Control Clerk Blood Bank Relationship Specialty Start Date End Date Ignacio Cheatham MD [address] [place] [address] PCP - General Family Medicine 04/16/17 Vicki White, [facility] [address] [place] [address] Pharmacist Pharmacy 05/17/20 Calendar Control Clerk Blood Bank Relationship Specialty Start Date End Date Ignacio Cheatham MD [address] [place] [address] PCP - General Family Medicine 04/16/17 Vicki White, [facility] [address] [place] [address] Pharmacist Pharmacy 05/17/20 Team Status: Active Member Role Status Dates Dr. Ignacio Cheatham MD Primary Care Provider Active Tyler JOHNSON Attending Provider Active Team Status: Active Member Role Status Dates Dr. Ignacio Cheatham MD Primary Care Provider Active Dr. Allison JOHNSON MD Attending Provider, Referring Provider Active Team Status: Active Member Role Status Dates Dr. Ignacio Cheatham MD Primary Care Provider Active Dr. Sofía Hill MD Attending Provider Active Team Status: Inactive Member Role Status Dates Dr. Ignacio Cheatham MD Primary Care Provider Active Dr. Audra Ahuja MD Emergency Provider Active Calendar Control Clerk Blood Bank Relationship Specialty Start Date End Date Ignacio Cheatham MD [address] [place] [address] PCP - General Family Medicine 04/16/17 [facility] [address] [place] [address] Pharmacist Pharmacy 05/17/20 Calendar Control Clerk Blood Bank Relationship Specialty Start Date End Date Ignacio Cheatham MD [address] [place] [address] PCP - General Family Medicine 04/16/17 KaiserNicolas, [facility] [address] [place] [address] Pharmacist Pharmacy 05/17/20 Team Status: Inactive Member Role Status Dates Dr. Ignacio Cheatham MD Primary Care Provider Active Tyler JOHNSON Attending Provider Active Team Status: Inactive Member Role Status Dates Dr. Ignacio Cheatham MD Primary Care Provider Active Dr. Audra Ahuja MD Attending Provider, Emergency Provider Active Team Status: Inactive Member Role Status Dates Dr. Ignacio Cheatham MD Primary Care Provider Active Dr. Allison JOHNSON MD Attending Provider, Referring Provider Active Team Status: Inactive Member Role Status Dates Dr. Ignacio Cheatham MD Primary Care Provider Active Dr. Sofía Hill MD Attending Provider Active Calendar Control Clerk Blood Bank Relationship Specialty Start Date End Date Ignacio Cheatham MD [address] [facility] [place] [address] PCP - General Family Medicine 04/16/17 [facility] [address] [facility] [place] [address] Pharmacist Pharmacy 05/17/20 Calendar Control Clerk Blood Bank Relationship Specialty Start Date End Date Ignacio Cheatham MD [address] [place] [address] PCP - General Family Medicine 04/16/17 [facility] [address] [place] [address] Pharmacist Pharmacy 05/17/20 Calendar Control Clerk Blood Bank Relationship Specialty Start Date End Date Ignacio Cheatham MD [address] [place] [address] PCP - General Family Medicine 04/16/17 [facility] [address] [facility] [place] [address] Pharmacist Pharmacy 05/17/20 Calendar Control Clerk Blood Bank Relationship Specialty Start Date End Date Ignacio Cheatham MD [address] [place] [address] PCP - General Family Medicine 04/16/17 [facility] [address] [place] [address] Pharmacist Pharmacy 05/17/20 Calendar Control Clerk Blood Bank Relationship Specialty Start Date End Date Ignacio Cheatham MD [address] [place] [address] PCP - General Family Medicine 04/16/17 KaiserVicki goncalves, [facility] [address] [place] [address] Pharmacist Pharmacy 05/17/20 Calendar Control Clerk Blood Bank Relationship Specialty Start Date End Date Ignacio Cheatham MD [address] [place] [address] PCP - General Family Medicine 04/16/17 KaiserVicki goncalves, [facility] [address] [place] [address] Pharmacist Pharmacy 05/17/20 Calendar Control Clerk Blood Bank Relationship Specialty Start Date End Date Ignacio Cheatham MD [address] [place] [address] PCP - General Family Medicine 04/16/17 Vicki White, [facility] [address] [place] [address] Pharmacist Pharmacy 05/17/20 Calendar Control Clerk Blood Bank Relationship Specialty Start Date End Date Ignacio Cheatham MD [address] [facility] [place] [address] PCP - General Family Medicine 04/16/17 Kaiserivanna Nicolasjodi, [facility] [address] [place] [address] Pharmacist Pharmacy 05/17/20 Calendar Control Clerk Blood Bank Relationship Specialty Start Date End Date Ignacio Cheatham MD [address] [place] [address] PCP - General Family Medicine 04/16/17 [facility] [address] [place] [address] Pharmacist Pharmacy 05/17/20 Calendar Control Clerk Blood Bank Relationship Specialty Start Date End Date Ignacio Cheatham MD [address] [place] [address] PCP - General Family Medicine 04/16/17 [facility] [address] [place] [address] Pharmacist Pharmacy 05/17/20 Calendar Control Clerk Blood Bank Relationship Specialty Start Date End Date Ignacio Cheatham MD [address] [place] [address] PCP - General Family Medicine 04/16/17 [facility] [address] [place] [address] Pharmacist Pharmacy 05/17/20 Calendar Control Clerk Blood Bank Relationship Specialty Start Date End Date Ignacio Cheatham MD [address] [place] [address] PCP - General Family Medicine 04/16/17 KaiserivannaVicki, [facility] [address] [place] [address] Pharmacist Pharmacy 05/17/20 Kaylin Carranza, GRACE Specialty Supervisor Nephrology 12/06/2109/15 Chrissy Nieto, GRACE [address] [place] [address] Primary Care Alliance Manager 08/05/22 09/02/22 Calendar Control Clerk Blood Bank Relationship Specialty Start Date End Date Ignacio Cheatham MD [address] [place] [address] PCP - General Family Medicine 04/16/17 Vicki White, [facility] [address] [facility] [place] [address] Pharmacist Pharmacy 05/17/20 Calendar Control Clerk Blood Bank Relationship Specialty Start Date End Date Ignacio Cheatham MD [address] [place] [address] PCP - General Family Medicine 04/16/17 [facility] [address] [place] [address] Pharmacist Pharmacy 05/17/20 Kaylin Carranza RN Specialty Supervisor Nephrology 12/06/2109/15 Calendar Control Clerk Blood Bank Relationship Specialty Start Date End Date Ignacio Cheatham MD [address] [place] [address] PCP - General Family Medicine 04/16/17 [facility] [address] [place] [address] Pharmacist Pharmacy 05/17/20 Kaylin Carranza, GRACE Specialty Supervisor Nephrology 12/06/2109/15 Calendar Control Clerk Blood Bank Relationship Specialty Start Date End Date Ignacio Cheatham MD [address] [place] [address] PCP - General Family Medicine 04/16/17 Vicki White, [facility] [address] [place] [address] Pharmacist Pharmacy 05/17/20 Kaylin Carranza RN Specialty Supervisor Nephrology 12/06/2109/15 Chrissy Nieto, RN [address] [place] [address] Primary Care Alliance Manager 08/05/22 09/02/22 Calendar Control Clerk Blood Bank Relationship Specialty Start Date End Date Ignacio Cheatham MD [address] [place] [address] PCP - General Family Medicine 04/16/17 [facility] [address] [place] [address] Pharmacist Pharmacy 05/17/20 Team Status: Active Member Role Status Dates Dr. Ignacio Cheatham MD Primary Care Provider Active Dr. Sylvester John MD Attending Provider Active Dr. Audra Ahuja MD Referring Provider Active Team Status: Inactive Member Role Status Dates Dr. Ignacio Cheatham MD Primary Care Provider Active Dr. Dakota Cobos MD Emergency Provider Active Team Status: Active Member Role Status Dates Dr. Ignacio Cheatham MD Primary Care Provider Active Dr. Raul Larkin MD Attending Provider Active Calendar Control Clerk Blood Bank Relationship Specialty Start Date End Date Ignacio Cheatham MD [address] [place] [address] PCP - General Family Medicine 04/16/17 [facility] [address] [place] [address] Pharmacist Pharmacy 05/17/20 Team Status: Active Member Role Status Dates Dr. Ignacio Cheatham MD Primary Care Provider Active Dr. Yariel Wilks DO Emergency Provider Active Dr. Mone Riggs MD Admit Provider, At tending Provider, Other Provider Active Team Status: Inactive Member Role Status Dates Dr. Ignacio Cheatham MD Primary Care Provider Active Dr. Dakota Cobos MD Attending Provider, Emergency Provider Active Team Status: Active Member Role Status Dates Dr. Ignacio Cheatham MD Primary Care Provider Active Dr. Yariel Wilks DO Emergency Provider Active Dr. Mone Riggs MD Admit Provider, Attending Provid er Active Calendar Control Clerk Blood Bank Relationship Specialty Start Date End Date Ignacio Cheatham MD [address] [place] [address] PCP - General Family Medicine 04/16/17 [facility] [address] [place] [address] Pharmacist Pharmacy 05/17/20 Calendar Control Clerk Blood Bank Relationship Specialty Start Date End Date Ignacio Cheatham MD [address] [facility] [place] [address] PCP - General Family Medicine 04/16/17 [facility] [address] [place] [address] Pharmacist Pharmacy 05/17/20 Calendar Control Clerk Blood Bank Relationship Specialty Start Date End Date Ignacio Cheatham MD [address] [place] [address] PCP - General Family Medicine 04/16/17 [facility] [address] [place] [address] Pharmacist Pharmacy 05/17/20 Team Status: Active Member Role Status Dates Dr. Ignacio Cheatham MD Primary Care Provider Active Dr. Raul Larkin MD Attending Provider Active Dr. Quentin Kim DO Referring Provider Active Team Status: Active Member Role Status Dates Dr. Ignacio Cheatham MD Primary Care Provider Active Dr. Yariel Wilks DO Emergency Provider Active Dr. Mone Riggs MD Admit Provider, Other Provider A ctive Dr. Deshawn Tucker MD Other Provider Active Dr. Sofía Hill MD Other Provider Active Dr. Branden Banks MD Attending Provider, Other Provi anabell Active Team Status: Active Member Role Status Dates Dr. Ignacio Cheatham MD Primary Care Provider Active Dr. Yariel Wilks DO Emergency Provider Active Dr. Mone Riggs MD Admit Provider, Other Provider A ctive Dr. Deshawn Tucker MD Other Provider Active Dr. Sofía Hill MD Other Provider Active Dr. Carolina Caba MD Attending Provider, Other Prov ider Active Dr. Branden Banks MD Other Provider Active Team Status: Active Member Role Status Dates Dr. Ignacio Cheatham MD Primary Care Provider Active Dr. Emerson Saldaña MD Attending Provider Active Dr. Branden Banks MD Referring Provider Active Team Status: Inactive Member Role Status Dates Dr. Ignacio Cheatham MD Primary Care Provider Active Dr. Yariel Wilks DO Emergency Provider Active Dr. Mone Riggs MD Admit Provider, Other Provider A ctive Dr. Deshawn Tucker MD Other Provider Active Dr. Sofía Hill MD Other Provider Active Dr. Carolina Caba MD Attending Provider Active Dr. Branden Banks MD Other Provider Active Team Status: Active Member Role Status Dates Dr. Ignacio Cheatham MD Primary Care Provider Active Dr. Emerson Saldaña MD Attending Provider Active Dr. Mone Riggs MD Referring Provider Active Team Status: Active Member Role Status Dates Dr. Ignacio Cheatham MD Primary Care Provider Active Dr. Emerson Saldaña MD Attending Provider, Referring Pr ovider Active Team Status: Inactive Member Role Status Dates Dr. Ignacio Cheatham MD Primary Care Provider Active Dr. Neymar Toledo DO Referring Provider, Emergency P keli Active Team Status: Active Member Role Status Dates Dr. Ignacio Cheatham MD Primary Care Provider Active Shilpa JOHNSON MD Attending Provider Active Team Status: Inactive Member Role Status Dates Dr. Ignacio Cheatham MD Primary Care Provider Active Dr. Neymar Toledo DO Attending Provide r, Referring Provider, Emergency Provider Active Team Status: Active Member Role Status Dates Shilpa JOHNSON MD Attending Provider Active Team Status: Inactive Member Role Status Dates Dr. Ignacio Cheatham MD Primary Care Provider Active Dr. Johnathon Robertson MD Emergency Provider Active Calendar Control Clerk Blood Bank Relationship Specialty Start Date End Date Ignacio Cheatham MD [address] [place] [address] PCP - General Family Medicine 04/16/17 Vicki White, [facility] [address] [place] [address] Pharmacist Pharmacy 05/17/20 Calendar Control Clerk Blood Bank Relationship Specialty Start Date End Date Ignacio Cheatham MD [address] [facility] [place] [address] PCP - General Family Medicine 04/16/17 [facility] [address] [facility] [place] [address] Pharmacist Pharmacy 05/17/20 Calendar Control Clerk Blood Bank Relationship Specialty Start Date End Date Ignacio Cheatham MD [address] [facility] [place] [address] PCP - General Family Medicine 04/16/17 Vicki White, [facility] [address] [facility] [place] [address] Pharmacist Pharmacy 05/17/20 Calendar Control Clerk Blood Bank Relationship Specialty Start Date End Date Ignacio Cheatham MD [address] [facility] [place] [address] PCP - General Family Medicine 04/16/17 [facility] [address] [place] [address] Pharmacist Pharmacy 05/17/20 Calendar Control Clerk Blood Bank Relationship Specialty Start Date End Date Ignacio Cheatham MD [address] [facility] [place] [address] PCP - General Family Medicine 04/16/17 Vicki White, [facility] [address] [facility] [place] [address] Pharmacist Pharmacy 05/17/20 Calendar Control Clerk Blood Bank Relationship Specialty Start Date End Date Ignacio Cheatham MD [address] [facility] [place] [address] PCP - General Family Medicine 04/16/17 Vicki White, [facility] [address] [place], [place] [address] Pharmacist Pharmacy 05/17/20 Calendar Control Clerk Blood Bank Relationship Specialty Start Date End Date Ignacio Cheatham MD [address] [place], [place] [id number] PCP - General Family Medicine 04/16/17 Vicki White, [facility] [address] [place], [place] [id number] Pharmacist Pharmacy 05/17/20 Team Status: Inactive Member Role Status Dates Dr. Ignacio Cheatham MD Primary Care Provider Active Dr. Johnathon Robertson MD Attending Provider, Emergency Pro vider Active Team Status: Inactive Member Role Status Dates Dr. Ignacio Cheatham MD Primary Care Provider Active Dr. Neymar Toledo , Emergency Provider Active Calendar Control Clerk Blood Bank Relationship Specialty Start Date End Date Ignacio Cheatham MD [address] [place], [place] [id number] PCP - General Family Medicine 04/16/17 Calendar Control Clerk Blood Bank Relationship Specialty Start Date End Date Juliano Abdullahi [address] [place] [address] [facility] [place] [address] PCP - General 08/31/14 Calendar Control Clerk Blood Bank Relationship Specialty Start Date End Date Ignacio Cheatham MD [address] [place], [place] [id number] PCP - General Family Medicine 04/16/17 Calendar Control Clerk Blood Bank Relationship Specialty Start Date End Date Ignacio Cheatham MD [address] [place], [place] [id number] PCP - General Family Medicine 04/16/17 Calendar Control Clerk Blood Bank Relationship Specialty Start Date End Date Ignacio Cheatham MD [address] [place], [place] [address] PCP - General Family Medicine 04/16/17 Team Status: Inactive Member Role Status Dates Dr. Ignacio Cheatham MD Primary Care Provider Active Dr. Neymar Toledo , DO Attending Provider, Emergency P rovider Active Team Status: Inactive Member Role Status Dates Dr. Ignacio Cheatham MD Primary Care Provider Active Dr. Sylvester Winston DO Attending Provider, Emergency P rovider Active Team Status: Inactive Member Role Status Dates Dr. Ignacio Cheatham MD Primary Care Provider Active Dr. Ismael Gillespie MD Emergency Provider Active Team Status: Active Member Role Status Dates Dr. Ignacio Cheatham MD Primary Care Provider Active Dr. Sofía Hill MD Attending Provider, Referri ng Provider Active Team Status: Inactive Member Role Status Dates Dr. Ignacio Cheatham MD Primary Care Provider Active Cathy Dumont [employer], [employer] Attending Provider, Referring Pro vider Active Calendar Control Clerk Blood Bank Relationship Specialty Start Date End Date Ignacio Cheatham MD [address] [place], [place] [address] PCP - General Family Medicine 04/16/17 Calendar Control Clerk Blood Bank Relationship Specialty Start Date End Date Ignacio Cheatham MD [address] [place], [place] [address] PCP - General Family Medicine 04/16/17 Calendar Control Clerk Blood Bank Relationship Specialty Start Date End Date Ignacio Cheatham MD [address] [place], [place] [id number] PCP - General Family Medicine 04/16/17 Calendar Control Clerk Blood Bank Relationship Specialty Start Date End Date Ignacio Cheatham MD [address] [place], [place] [address] PCP - General Family Medicine 04/16/17 Calendar Control Clerk Blood Bank Relationship Specialty Start Date End Date Ignacio Cheatham MD [address] [place] [address] PCP - General Family Medicine 04/16/17 [facility] [address] [facility] [place] [address] Pharmacist Pharmacy 05/17/20 05/27/23 Calendar Control Clerk Blood Bank Relationship Specialty Start Date End Date Ignacio Cheatham MD [address] [place] [address] PCP - General Family Medicine 04/16/17 [facility] [address] [facility] [facility], [place] [address] Pharmacist Pharmacy 05/17/20 05/27/23 Kaylin Carranza, GRACE Specialty Supervisor Nephrology 12/06/2109/15 Calendar Control Clerk Blood Bank Relationship Specialty Start Date End Date Ignacio Cheatham MD [address] [place] [address] PCP - General Family Medicine 04/16/17 [facility] [address] [facility] [place] [address] Pharmacist Pharmacy 05/17/20 05/27/23 Calendar Control Clerk Blood Bank Relationship Specialty Start Date End Date Ignacio Cheatham MD [address] [place] [address] PCP - General Family Medicine 04/16/17 Calendar Control Clerk Blood Bank Relationship Specialty Start Date End Date Ignacio Cheatham MD [address] [place] [address] PCP - General Family Medicine 04/16/17 Calendar Control Clerk Blood Bank Relationship Specialty Start Date End Date Ignacio Cheatham MD [address] [place], [place] [id number] PCP - General Family Medicine 04/16/17 Calendar Control Clerk Blood Bank Relationship Specialty Start Date End Date Ignacio Cheatham MD [address] [place], [place] [id number] PCP - General Family Medicine 04/16/17 Calendar Control Clerk Blood Bank Relationship Specialty Start Date End Date Ignacio Cheatham MD [address] [place], [place] [id number] PCP - General Family Medicine 04/16/17 Calendar Control Clerk Blood Bank Relationship Specialty Start Date End Date Ignacio Cheatham MD [address] [place] [address] PCP - General Family Medicine 04/16/17 Calendar Control Clerk Blood Bank Relationship Specialty Start Date End Date Ignacio Cheatham MD [address] [place], [place] [id number] PCP - General Family Medicine 04/16/17 Calendar Control Clerk Blood Bank Relationship Specialty Start Date End Date Ignacio Cheatham MD [address] [place] [address] PCP - General Family Medicine 04/16/17 Calendar Control Clerk Blood Bank Relationship Specialty Start Date End Date Ignacio Cheatham MD [address] [place], [place] [id number] PCP - General Family Medicine 04/16/17 Tresa Marcum APRN.NOY [address] [place] [address] [facility] 02/08/24 Sury Gonzalez CUSTOMS ENTRY CLERK.BENEFITS ADMINISTRATOR [address] [facility] [place] [address] [facility] 02/08/24 Calendar Control Clerk Blood Bank Relationship Specialty Start Date End Date Ignacio Cheatham MD [address] [place] [address] PCP - General Family Medicine 04/16/17 Tresa Marcum CUSTOMS ENTRY CLERK.BENEFITS ADMINISTRATOR [address] [facility] [place] [address] [facility] 02/08/24 Sury Gonzalez CUSTOMS ENTRY CLERK.BENEFITS ADMINISTRATOR [address] [place] [address] [facility] 02/08/24 Calendar Control Clerk Blood Bank Relationship Specialty Start Date End Date Ignacio Cheatham MD [address] [place] [address] PCP - General Family Medicine 04/16/17 Tresa Marcum CUSTOMS ENTRY CLERK.BENEFITS ADMINISTRATOR [address] [facility] [place] [address] [facility] Medicine 02/08/24 Sury Gonzalez CUSTOMS ENTRY CLERK.BENEFITS ADMINISTRATOR [address] [place] [address] [facility] Medicine 02/08/24 Calendar Control Clerk Blood Bank Relationship Specialty Start Date End Date Ignacio Cheatham MD [address] [place] [address] PCP - General Family Medicine 04/16/17 Tresa Marcum CUSTOMS ENTRY CLERK.BENEFITS ADMINISTRATOR [address] [facility] [place] [address] [facility] 02/08/24 Sury Gonzalez APRN.BENEFITS ADMINISTRATOR [address] [place] [address] [facility] 02/08/24 Calendar Control Clerk Blood Bank Relationship Specialty Start Date End Date Ignacio Cheatham MD [address] [place] [address] PCP - General Family Medicine 04/16/17 Tresa Marcum APRN.BENEFITS ADMINISTRATOR [address] [facility] [place] [address] [facility] 02/08/24 Sury Gonzalez APRN.BENEFITS ADMINISTRATOR [address] [place] [address] [facility] 02/08/24 Calendar Control Clerk Blood Bank Relationship Specialty Start Date End Date Ignacio Cheatham MD [address] [place] [address] PCP - General Family Medicine 04/16/17 Tresa Marcum APRN.BENEFITS ADMINISTRATOR [address] [facility] [place] [address] [facility] 02/08/24 Sury Gonzalez APRN.BENEFITS ADMINISTRATOR [address] [place] [address] [facility] Medicine 02/08/24 Calendar Control Clerk Blood Bank Relationship Specialty Start Date End Date Ignacio Cheatham MD [address] [place] [address] PCP - General Family Medicine 04/16/17 Tresa Marcum APRN.BENEFITS ADMINISTRATOR [address] [place] [address] [facility] 02/08/24 Sury Gonzalez APRN.BENEFITS ADMINISTRATOR [address] [place] [address] [facility] 02/08/24 Calendar Control Clerk Blood Bank Relationship Specialty Start Date End Date Ignacio Cheatham MD [address] [place] [address] PCP - General Family Medicine 04/16/17 Tresa Marcum APRN.BENEFITS ADMINISTRATOR [address] [place] [address] [facility] 02/08/24 Sury Gonzalez APRN.BENEFITS ADMINISTRATOR [address] [place] [address] [facility] 02/08/24 Calendar Control Clerk Blood Bank Relationship Specialty Start Date End Date Ignacio Cheatham MD [address] [facility] [place] [address] PCP - General Family Medicine 04/16/17 Tresa Marcum APRN.BENEFITS ADMINISTRATOR [address] [facility] [place] [address] [facility] 02/08/24 Sury Gonzalez APRN.BENEFITS ADMINISTRATOR [address] [facility] [place] [address] [facility] 02/08/24 Calendar Control Clerk Blood Bank Relationship Specialty Start Date End Date Ignacio Cheatham MD [address] [facility] [place] [address] PCP - General Family Medicine 04/16/17 Tresa Marcum CUSTOMS ENTRY CLERK.BENEFITS ADMINISTRATOR [address] [facility] [place] [address] [facility] 02/08/24 Sury Gonzalez APRN.BENEFITS ADMINISTRATOR [address] [facility] [place] [address] [facility] 02/08/24 Calendar Control Clerk Blood Bank Relationship Specialty Start Date End Date Ignacio Cheatham MD [address] [facility] [place] [address] PCP - General Family Medicine 04/16/17 Tresa Marcum CUSTOMS ENTRY CLERK.BENEFITS ADMINISTRATOR [address] [facility] [place] [address] [facility] 02/08/24 Sury Gonzalez CUSTOMS ENTRY CLERK.BENEFITS ADMINISTRATOR [address] [facility] [place] [address] [facility] 02/08/24 Calendar Control Clerk Blood Bank Relationship Specialty Start Date End Date Ignacio Cheatham MD [address] [facility] [place] [address] PCP - General Family Medicine 04/16/17 Tresa Marcum CUSTOMS ENTRY CLERK.BENEFITS ADMINISTRATOR [address] [facility] [place] [address] [facility] 02/08/24 Sury Gonzalez APRN.BENEFITS ADMINISTRATOR [address] [facility] [place] [address] [facility] 02/08/24 Calendar Control Clerk Blood Bank Relationship Specialty Start Date End Date Ignacio Cheatham MD [address] [facility] [place] [address] PCP - General Family Medicine 04/16/17 Tresa Marcum CUSTOMS ENTRY CLERK.BENEFITS ADMINISTRATOR [address] [facility] [place] [address] [facility] 02/08/24 Sury Gonzalez APRN.BENEFITS ADMINISTRATOR [address] [facility] [place] [address] [facility] 02/08/24 Calendar Control Clerk Blood Bank Relationship Specialty Start Date End Date Ignacio Cheatham MD [address] [facility] [place] [address] PCP - General Family Medicine 04/16/17 Tresa Marcum CUSTOMS ENTRY CLERK.BENEFITS ADMINISTRATOR [address] [facility] [place] [address] [facility] 02/08/24 Sury Gonzalez CUSTOMS ENTRY CLERK.BENEFITS ADMINISTRATOR [address] [facility] [place] [address] [facility] 02/08/24 Calendar Control Clerk Blood Bank Relationship Specialty Start Date End Date Ignacio Cheatham MD [address] [facility] [place] [address] PCP - General Family Medicine 04/16/17 Tresa Marcum CUSTOMS ENTRY CLERK.BENEFITS ADMINISTRATOR [address] [place] [address] [facility] 02/08/24 Sury Gonzalez APRN.BENEFITS ADMINISTRATOR [address] [place] [address] [facility] 02/08/24 Calendar Control Clerk Blood Bank Relationship Specialty Start Date End Date Ignacio Cheatham MD [address] [place] [address] PCP - General Family Medicine 04/16/17 Tresa Marcum APRN.BENEFITS ADMINISTRATOR [address] [place] [address] [facility] 02/08/24 Sury Gonzalez CUSTOMS ENTRY CLERK.BENEFITS ADMINISTRATOR [address] [place] [address] [facility] 02/08/24 Calendar Control Clerk Blood Bank Relationship Specialty Start Date End Date Ignacio Cheatham MD [address] [place] [address] PCP - General Family Medicine 04/16/17 Tresa Marcum CUSTOMS ENTRY CLERK.BENEFITS ADMINISTRATOR [address] [place] [address] [facility] 02/08/24 Sury Gonzalez CUSTOMS ENTRY CLERK.BENEFITS ADMINISTRATOR [address] [place] [address] [facility] 02/08/24 Calendar Control Clerk Blood Bank Relationship Specialty Start Date End Date Ignacio Cheatham MD [address] [place] [address] PCP - General Family Medicine 04/16/17 Tresa Marcum APRN.BENEFITS ADMINISTRATOR [address] [place], [place] 243[address] [phone] [facility] 02/08/24 Sury Gonzalez APRN.BENEFITS ADMINISTRATOR [address] [place] [address] [facility] 02/08/24 Calendar Control Clerk Blood Bank Relationship Specialty Start Date End Date Ignacio Cheatham MD [address] [place] [address] PCP - General Family Medicine 04/16/17 Tresa Marcum APRN.BENEFITS ADMINISTRATOR [address] [place] [address] [facility] 02/08/24 Sury Gonzalez CUSTOMS ENTRY CLERK.BENEFITS ADMINISTRATOR [address] [place] [address] [facility] 02/08/24 Calendar Control Clerk Blood Bank Relationship Specialty Start Date End Date Ignacio Cheatham MD [address] [place] [address] PCP - General Family Medicine 04/16/17 Tresa Marcum CUSTOMS ENTRY CLERK.BENEFITS ADMINISTRATOR [address] [place] [address] [facility] Medicine 02/08/24 Sury Gonzalez APRN.BENEFITS ADMINISTRATOR [address] [place] [address] [facility] 02/08/24 Team Status: Active Member Role/Relationship Status Dates Dr. Ignacio Cheatham MD Primary Care Provider Active Team Status: Active Member Role/Relationship Status Dates Dr. Ignacio Cheatham MD Primary Care Provider Active Start: August 24, 2024 Tresa Marcum CUSTOMS BROKER, CUSTOMS BROKER-C Attending Provider Active Start: August 24, 2024 Tresa Marcum CUSTOMS BROKER, CUSTOMS BROKER-C Referring Provider Active Start: August 24, 2024 Team Status: Inactive Member Role/Relationship Status Dates Dr. Ignacio Cheatham MD Primary Care Provider Active Start: September 06, 2024 End: September 06, 2024 Dr. Johnathon Robertson MD Emergency Provider Active S tart: September 06, 2024 End: September 06, 2024 Calendar Control Clerk Blood Bank Relationship Specialty Start Date End Date Ignacio Cheatham MD [address] [place] [address] PCP - General Family Medicine 04/16/17 Tresa Marcum, CUSTOMS ENTRY CLERK.BENEFITS ADMINISTRATOR [address] [facility] [place] [address] [facility] 02/08/24 Sury Gonzalez CUSTOMS ENTRY CLERK.BENEFITS ADMINISTRATOR [address] [place] [address] [facility] 02/08/24 Calendar Control Clerk Blood Bank Relationship Specialty Start Date End Date Ignacio Cheatham MD [address] [place] [address] PCP - General Family Medicine 04/16/17 Tresa Marcum, CUSTOMS ENTRY CLERK.BENEFITS ADMINISTRATOR [address] [facility] [place] [address] [facility] 02/08/24 Sury Gonzalez CUSTOMS ENTRY CLERK.BENEFITS ADMINISTRATOR [address] [place] [address] [facility] 02/08/24 Calendar Control Clerk Blood Bank Relationship Specialty Start Date End Date Ignacio Cheatham MD [address] [place], [place] [id number] PCP - General Family Medicine 04/16/17 Tresa Marcum APRN.BENEFITS ADMINISTRATOR [address] [place], [place] [id number] [facility] 02/08/24 Sury Gonzalez APRN.BENEFITS ADMINISTRATOR [address] [place], [place] [id number] [facility] 02/08/24 Goals (unrecognized section and content) Goals may be documented in a n alternate sectionGoals may be documented in an alternate sectionGoals may be documented in an alternate sectionGoals may be documented in an alternate sectionGoals may be documented in an alternate sectionGoals may be documented in an alternate sectionGoals may be documented in an alternate sectionGoals may be documented in an alternate sectionGoals may be documented in an alternate section Active Administered Medications - up to 3 most recent administrations Administered Medications (un recognized section and content) Medication Order MAR Action Action Date Dose Rate Site proparacaine 0.5 % 1 Drop (ALCAINE) 1 Drop, BOTH EYES, DIRECTED, Starting on Thu05/01/23 at 1130, Until Thu05/01/23 at 2259, Administer for pneumo tonometry, tonopen tonometry, or pachymetry. In the event of a proparacaine shortage, administer tetracaine 0.5% ophthalmic drops 1 drop in the left eye as directed for pneumo tonometry, tonopen tonometry, or pachymetry Given 05/01/2023 11:02 AM EST 1 Drop tropicamide 1 % 1 Drop (MYDRIACYL) 1 Drop, BOTH EYES, DIRECTED, Starting on Thu05/01/23 at 1130, Until Thu05/01/23 at 2259, Administer for dilation Given 05/01/2023 11:02 AM EST 1 Drop FOR RECORDS PERTAINING TO PATIENTS WHO ARE OR HAVE BEEN ENROLLED IN A CHEMICAL DEPENDENCY/SUBSTANCEABUSE PROGRAM, SOME INFORMATION MAY BE OMITTED. This clinical summary was aggregated from multiple sources. Caution should be exercised in using it in the provision of clinical care. This summary normalizes information from multiple sources, and as a consequence, information in this document may materially change the coding, format and clinical context of patient data. In addition, data may be omitted in some cases. CLINICAL DECISIONS SHOULD BE BASED ON THE PRIMARY CLINICAL RECORDS. [facility] provides no warranty or guarantee of the accuracy or completeness of information in this document.
[2024-10-10 21:33] LABS: FOLATES,SERUM (FOLIC ACID) 7.19 ng/mL (4.60-34.80)
--- NOTE | 2024-10-10 21:47 | VDLE_ITS ---
Reason For Study Reason For Study: Elevated D Dimer RIGHT LEFT GSV is normal. GSV is normal. CFV is compressible, spontaneous, competent and CFV is compressible, spontaneous, competent, and demonstrates pulsatile venous flow. demonstrates pulsatile venous flow. FV is compressible, spontaneous, competent and FV is compressible, spontaneous, competent and demonstrates pulsatile venous flow. demonstrates pulsatile venous flow. POP V is compressible, spontaneous, competent and POP V is compressible, spontaneous, competent and demonstrates pulsatile venous flow. demonstrates pulsatile venous flow. T/P Trunk is compressible. T/P Trunk is compressible. PTV is compressible. PTV is compressible. RT PerV is compressible. LT PerV is compressible. Procedure This is a venous duplex using B-mode, color flow and spectral Doppler. Exam performed portable in patient room. The study was technically difficult. A preliminary report was called and/or faxed to PCU deburring machine operator. VL/Venous Duplex US - Santo Extrem Interpretation Summary Deep veins of the lower extremities are bilaterally patent and compressible seg mentally. There is no evidence of deep vein thrombosis on either side. Valvular competence appears intact within the p roximal deep venous systems bilaterally. The great saphenous veins appear bilaterally patent and compressible segmentall y. Pulsatile flow is noted in the deep venous system bilaterally, which may be indicative of elevated central venous p ressure (i.e. congestive heart failure, pulmonary hypertension, etc.). Clinical correlation is advised. Ordering Physician: Son Hallman Referring Physician: Aki Archibald Performed By: Lion Araya RVT
--- OUTSIDE RECORDS SUMMARY | 2024-10-10 21:52 | XMS RPT_ITS | CCD ---
Author Organization [facility] CliniSywv Care Team Providers Care Software Qa Manager Name Role Phone GRACIELA MITCHELL Unavailable Unavailable PHYSICIAN, NOT RECORDED Unavailable Unavaila ble BREANA ESTEVEZ Unavailable Unavailable KAYLIN ESTEVEZNETH Unavailable Unavailable BREANA ESTEVEZ Unavailable Unavailable BREANA ESTEVEZ Unavailable Unavailable Ignacio Cheatham Unavailable Unavailable SELF, SELF Referring Unavailable Ignacio Cheatham MD Primary Care Provider Christopher [facility], Keti Unavailable Ignacio Cheatham MD Primary Care Provider [facility], Keti Unavailable Ignacio Cheatham MD Primary Care Provider [facility], Keti Unavailable Dillon RN, Kaylin (Rn) Unavailable Unavailable Ignacio Cheatham MD Primary [facility] Provider [facility], [place]eti Unavailable Dillon RN, Kaylin (Rn) Unavailable Unavailable Kaylin Carranza RN Unavailable Unavailable [facility] Unavailable Zuleika Cheng RN, Chrissy Unavailable [phone] PROVIDER, UNKNOWN Attending Unavailable PROVIDER, UNKNOWN Admitting Unavailable IGNACIO CHEATHAM Primary Care Unavailable Dr. Ignacio Cheatham Primary Care Provider Dr. Minh Arroyo Emergency Provider Dr. Lizzy Bragg Attending Provider Dr. Lizzy Bragg Admit Provider Dr. Lizzy Bragg Other Provider Dr. Sylvester Ortiz Attending Provider Dr. Sylvester Ortiz Other Provider [facility], Keti Unavailable Dillon RN, Kaylin Unavailable Unavailable Zuleika Cheng RN, Chrissy Unavailable Dr. Ignacio Cheatham Primary Care Provider [...] Provider Ignacio Cheatham MD Primary Care Provider [facility], Keti Unavailable Deondre MOLDER TRIMMER.BLOCK PAVERTresa Unavailable Lisa MOLDER TRIMMER.BLOCK PAVER, Sury A Unavailable [phone] Suppan MOLDER TRIMMER.BLOCK PAVER, Sury A Unavailable [phone] Suppan MOLDER TRIMMER.BLOCK PAVER, Sury A Unavailable DORENE MURILLO Attending Unavailable LINDEN, IGNACIO J Primary Care Unavailable DORENE MURILLO Attending Unavailable LINDEN, IGNACIO J Primary Care Unavailable DORENE MURILLO Attending Unavailable LINDEN, IGNACIO J Primary Care Unavailable LINDEN, IGNACIO J Primary Care Unavailable ELEUTERIO WILLIAMSON Attending Unavailable ELEUTERIO WILLIAMSON Admitting Unavailable Linden Dr. Ignacio BERGMAN Primary Care Provider Deondre ROLLING MACHINE OPERATOR-C, Tresa Attending Provider [phone] Deondre ROLLING MACHINE OPERATOR-C, Tresa Referring Provider [phone] Dr. Johnathon Robertson MD Emergency Provider Johnathon Robertson Attending Unavailable [place], Ignacio Primary Care Unavailable Minh Arroyo Attending Unavailable Linden, Ignacio Primary Care Unavailable Linden, Ignacio Primary Care Unavailable Dave Sanz Attending Unavailable Dave Sanz Referring Unavailable Sylvester Winston Attending Unavailable [place], Ignacio Primary Care Unavailable Hipolito Shepard Consulting Unavailable Darren, Branden Attending Unavailable Linden, Ignacio Primary Care Unavailable Brayan Shepardolas F Admitting Unavailable Cristal Blanchard Consulting Unavailable [place], Ignacio Primary Care Unavailable Tresa Marcum Attending Unavailable HaydenagenTresa Referring Unavailable Linden, Ignacio Primary Care Unavailable Shilpa Lau Attending Unavailabl e Marye ALEX Efcarlosongbe Referring Unavailabl e [place], Ignacio Primary Care Unavailable Marye Breann JOHNSONbe Attending Unavailabl e Linden, Ignacio Primary Care Unavailable Emerson Saldaña Attending Unavailable [place], Ignacio Primary Care Unavailable Darren, Branden Attending [...] Primary Care Unavailable LINDEN, IGNACIO Attending Unavailable [facility] Primary Care Unavailable TRESA MARCUM Attending Unavailable [facility] Primary Care Unavailable LIZ FERREIRA Attending Unavailable TRESA MARCUM Referring Unavailable [facility] Care Unavailable HEVER CHEEMA Attending Unavailable [facility] Care Unavailable SAIRA JACKSON Referring Unavailable [facility] Primary Care Unavailable [facility] Primary Care Unavailable TRESA MARCUM Referring Unavailable [facility] Primary Care Unavailable GEGE MCCRARY Attending Unavailable [facility] Primary Care Unavailable TRINIDAD FRAZIER Attending Unavailable TRESA MARCUM Referring Unavailable ALONDRA CHUNG Attending Unavailable [facility] Care Unavailable SHA MYRICK Referring Unavailable [facility] Unavailable TRESA MARCUM Attending Unavailable Allergies Allergy Classification Reported Allergen(s) Allergy Type Date of Onset Reaction(s) Facility Acetaminophen / HYDROcodone (1 source) Acetaminophen / HYDROcodone Drug Allergy 09-23-19 08 Vomiting [facility] Angiotensin Converting Enzyme (HANNAH) Inhibitors (1 source) Lisinopril Drug Allergy 05-27-19 09 Contraindicati on-Medical Surgical [facility] Work Phone: Barium Sulfate (1 source) Barium Sulfate Drug Allergy 05-01-19 24 Unknown [facility] CHAMOMILE ROY (2 sources) CHAMOMILE ROY Drug Allergy 02-03-20 09 Anaphylaxis [facility] diphenhydrAMINE (1 source) diphenhydrAMINE Drug Allergy 09-23-19 08 Rash, Itching [facility] Mold Extract (1 source) Mold Extract Drug Allergy 09-23-19 08 [facility] Opioid Agonists (1 source) Codeine Drug Allergy 09-23-19 08 Vomiting, Other: See Comments [facility] Penicillins (antibiotic) (1 source) Penicillins Drug Allergy 09-23-19 08 Anaphylaxis [facility] Work Phone: Syrian balsam (1 source) Syrian balsam Drug Allergy 09-11-19 23 Unknown [facility] Tetracyclines (antibiotic) (1 source) Tetracycline Drug Allergy 09-23-19 08 Rash [facility] vanilla kinney allergenic extract (1 source) vanilla kinney allergenic extract Drug Allergy 09-11-19 23 Unknown [facility] (20 sources) acetaminophen / HYDROcodone; Translations: [HYDROCODONE-ACETA MINOPHEN] Drug Allergy 09-23-19 08 Vomiting [facility] Repository (20 sources) codeine; Translations: [CODEINE] Drug Allergy 09-23-19 08 Vomiting, Other: See Comments [facility] Repository (20 sources) diphenhydrAMINE; Translations: [DIPHENHYDRAMINE HCL] Drug Allergy 09-23-19 08 Rash, Itching [facility] Repository (20 sources) flavor,vanilla; Translations: [VANILLA EXTRACT] Drug Allergy 09-23-19 08 [facility] Repository (20 sources) mold extract; Translations: [MOLD] Drug Allergy 09-23-19 08 unknown [facility] Repository (20 sources) NSAIDs; Translations: [NSAIDS (NON-STEROIDAL ANTI-INFLAMMATORY DRUG)] Propensity to adverse reactions (disorder) 09-14-19 13 Other: See Comments [facility] Repository (20 sources) Penicillins; Translations: [PENICILLINS] Propensity to adverse reactions (disorder) 09-23-19 08 Anaphylaxis [facility] Repository (20 sources) Seasonal allergy; Translations: [SEASONAL ALLERGIES] Propensity to adverse reactions (disorder) 12-15-19 09 Other: See Comments [facility] Repository (20 sources) tetracycline; Translations: [TETRACYCLINE] Drug Allergy 09-23-19 08 Rash [facility] Repository (20 sources) BALSAM 115; Translations: [BALSAM 115] Propensity to adverse reactions (disorder) 09-23-19 08 [facility] Repository (20 sources) CHAMOMILE; Translations: [CHAMOMILE] Propensity to adverse reactions (disorder) 02-03-20 09 [facility] Repository (2 sources) OTHER; Translations: [OTHER] Propensity to adverse reactions (disorder) 09-23-19 08 [facility] Repository (20 sources) Lisinopril; Translations: [LISINOPRIL] Drug Allergy 05-27-19 09 Contraindicati on-Medical Surgical [facility] Work Phone: Comment on above: x (20 sources) spider [Other] Propensity to adverse reactions 09-23-19 08 [facility] Work Phone: (20 sources) HYDROcodone; Translations: [hydrocodone bitartrate] Drug Allergy 07-30-19 22 Abd cramps/diarrhe a [facility] (20 sources) NSAIDS (Non-Steroidal Anti-Inflamma; Translations: [NSAIDS (Non-Steroidal Anti-Inflamma] Propensity to adverse reactions 07-30-19 22 Unknown [facility] (20 sources) Syrian balsam; Translations: [BALSAM JUAN] Drug Allergy 09-11-19 23 Unknown [facility] (20 sources) vanilla extract flavor; Translations: [VANILLA EXTRACT FLAVOR] Allergy to substance 09-11-19 23 Unknown [facility] (20 sources) Barium Sulfate; Translations: [BARIUM SULFATE] Drug Allergy 05-01-19 24 Unknown [facility] (13 sources) CHAMOMILE ROY Drug Allergy 05-01-19 24 Anaphylaxis [facility] (20 sources) Benadryl Allergy Decongestant; Translations: [BENADRYL ALLERGY DECONGESTANT] Drug Allergy 05-01-19 24 Itching [facility] (1 source) Lisinopril Drug Allergy 09-07-19 [facility] Repository (1 source) Syrian balsam Drug Allergy 09-07-19 25 [facility] Repository Medications Current Medications Medication Drug Class(es) [...] 04, 2023 1:02pm take 2 tablets by [facility] every twelve hours acetaminophen (TYLENOL) 500 [...] tuberculin skin test, unspecified formulation Given 06/18/2023 [id number] 200 actuat albuterol 0.09 mg/actuat metered dose [...] PATIENT 6 each 3 07/06/2024 Active calcitriol 0.39645 mg oral capsule (20 sources) Vitamin D3 [...] End: 12-14-2051 CPAP/BIPAP/OTHER APAP 5-20 cmH2O DME [facility] 1 each 07/29/2024 12/14/2051 Active Start: [...] on above: Take 1 capsule by [facility] two times a day. 0.5 ml dulaglutide 1.5 mg/ml auto-injector (20 sources) GLP-1 Receptor Agonist Start: 06-01-2024 End: 07-06-2024 dulaglutide (TRULICITY) 0.75 mg/0.5 mL pen injector Indications: Type 2 diabetes, controlled, with neuropathy ([facility]) Inject 0.75 mg subcutaneously one [...] Indications: Type 2 diabetes, controlled, with neuropathy ([facility]) Inject 0.75 mg subcutaneously one [...] Comment on above: Take 1 capsule by [facility] once daily. ondansetron 4 mg disintegrating [...] 90 days. 90 capsule 07/04/2024 09/12/2024 Discontinued Grtkzrvt-Er-Dis-Fe-FA ( VITAMIN) ORAL Tab (20 sources) Start: 07-08-2011 take 1 tablet by mouth once daily Ztgxaldq-Ck-Kpt-Fe-FA ( VITAMIN) ORAL Tab Take 1 tablet by mouth once daily. 0 07/08/2011 Suspended Start: 07-08-2011 take 1 tablet by rosenda th once daily Vppjgkki-Vx-Lwf-Fe-FA ( VITAMIN) ORAL Tab Take 1 tablet by mouth once daily. 0 07/08/2011 Active Comment on above: Take 1 tablet by rosenda th once daily. Vit No.678-Mmua-Qlimy ( Vitamins) 1 EACH tablet (19 sources) Start: 11-12-2017 take 1 tablet by mouth once daily Vit No.085-Agwe-Koyhr ( Vitamins) 1 EACH tablet Active 1 EACH PO DAILY November 12, 2017 5:38pm Start: 11-12-2017 End: 09-11-2022 take 1 tablet by mouth once daily Vit No.014-Szdl-Chevm ( Vitamins) 1 EACH tablet Discontinued 1 NMA PO DAILY November 12, 2017 12:00am September 11, 2022 10:40am Start: 11-12-2017 End: 09-11-2022 take 1 tablet by mouth once daily Vit No.804-Lykf-Rgszx ( Vitamins) 1 EACH tablet Discontinued 1 EACH PO DAILY November 11, 2017 11:00pm September 11, 2022 9:40am Start: 11-12-2017 End: 09-11-2022 take 1 tablet by mouth once daily Vit No.481-Ejxp-Bjkwu ( Vitamins) 1 EACH tablet Discontinued 1 EACH PO DAILY November 12, 2017 12:00am September 11, 2022 10:40am Start: 11-12-2017 take 1 tablet by rosenda once daily Vit No.062-Khri-Qztwf ( Vitamins) 1 EACH tablet Active 1 [...] stage 5, GFR less than 15 ml/min ([facility]) , Hyperphosphatemia Take 1 tablet [...] Comment on above: Take 1 capsule by [facility] twice daily as needed. torsemide 100 [...] 1:00am March 17, 2024 12:27pm STOOL SOFTENER [id number] 0.15 ml EPINEPHrine 1 mg/ml auto-injector (20 [...] Start: 04-28-2015 take 2 tablets by [facility] once daily Glipizide 5 MG tablet [...] once daily. Take 2 tablets by [facility] once daily. TAKE 2 TABLETS ONCE [...] mouth twice daily. Take 1 tablet by rosenda th twice daily. Lidocaine (20 sources) Antiarrhythmic, [...] Start: 03-07-2023 End: 03-05-2024 methoxy peg-epoetin beta (UT RCERA INJECTION) 150 mcg. 0 03/07/2023 03/05/2024 [...] Comment on above: Take 1 tablet by [facility] two times a day as needed [...] tablet by rosenda th once daily. Pnv,Calcium 12-Mkgf-Qypug Acid [ Vitamin With Calcium No.72-Iron 27 Mg-Folic Acid 1 Mg Tablet] ( Vitamin With Calcium No.72-Iron 27 ) 27 mg iron- 1 mg tablet (3 sources) Start: 06-29-2023 End: 03-17-2024 Pnv,Calcium 38-Zgsv-Ecjpn Acid [ Vitamin With Calcium No.72-Iron 27 Mg-Folic Acid 1 Mg Tablet] ( Vitamin With Calcium No.72-Iron 27 ) 27 mg iron- 1 mg tablet Discontinued 1 {tbl} PO DAILY June 29, 2023 12:00am March 17, 2024 12:29pm Start: 06-29-2023 take 1 tablet by rosenda th once daily Pnv,Calcium 67-Zloi-Dxhbu Acid [ Vitamin With Calcium No.72-Iron 27 [...] DAILY@2200 0 September 11, 2022 12:00am sennosides, fpc 8.6 mg oral tablet (13 sources) Start: [...] Comment on above: Take 1 tablet by [facility] twice daily. Take 2 tablets by [facility] twice daily. 125 ml sodium chloride [...] aftercare] 02-04-2023 Episodic Other aftercare (1 source) prison (current) use of insulin; Translations: [Type 2 [...] Test Name Value Interpretation Reference Range Facility [facility] 09-19-2024 CNP Telephone (NEUR) ---- Margareth GONZALEZ ([id number]) 1965 F Date Time Provider Department 09/19/24 ALONDRA CHUNG [facility] During your visit today, we recorded the following information about you: Esperanza Post 09/19/2024 1:43 PM Signed SLEEPPAREQUEST A PA has been received via fax. Requested by: Joshua Callback #: Medication: Pregabalin Dosage: 25 mg Soriano: [id number] Nataly Burns LPN 09/20/2024 4:42 PM Signed Tried to complete through Cover My Meds. Did not recognized Pt. Called [employer] and did PA over the phone. PA Authorization # [id number] good for 03/02/2024 to 03/01/2025. Called Pt earlier to [employer] out of service. Did speak with EC [...] - CPAP/BIPAP/OTHER APAP 5-[address] [facility] - Blood-Glucose Meter (ONETOUCH VERIO FLEX [...] 5,000 Units by mouth twice daily. - Fkuvlswb-Bj-Cjy-Fe- FA ( VITAMIN) ORAL Tab Take 1 [...] 03/09/2008 04/16/19 (more content not included)... Normal [facility] CNOVon 09-12-2024 CNOV Office Visit (PULMWS) ---- Margareth GONZALEZ ([id number]) 1965 F [place] Date Time Provider Department 09/12/24 1:30 PM LIZ FERREIRA PULMWS During your visit today, we recorded the following information about you: Pulse Respiration Blood pressure 77/minute 18/minute 102/60 Liz Ferreira MD 09/12/2024 2:25 PM Signed . Respiratory [facility] Note Patient name: Margareth Gonzalez PCP: Ignacio Cheatham MD Referring Physician: Kristy Marcum CNP Recording using [employer] software for draft documentation of the visit was discussed with the patient/authorized aircraft sales representative; all questions welcomed and answered. Patient/authorized aircraft sales representative agreed to proceed CC: lung nodules HPI: Margareth Gonzalez 59 year old female former remote 72-usvf-lglv smoker quitting in 1989 with PMH significant [...] She was just seen in ED at [facility] for sob and chest pain. CTA chest [...] DATE OF EXAM: Jul 27 2024 2:44PM [facility] 0541 - CT CHEST WO IVCON / [...] seen within the chest. Chest CT 04/2023: [facility] Imaging Services [address] [place] [id number] CTA Chest W/WO Contrast MR#: [id number] Acct: [id number] Name: Margareth GONZALEZ Rep #: [id number] : 1965 F 59 From: Frank Tabor [...] Chronic kidney disease Contraceptive management Depression Diabetes ([facility]) Diarrhea DVT, lower extremity ([facility]) 08/2014 Right leg (6) Esophagitis ESRD (end stage renal disease) ([facility]) 07/03/2022 Facial fracture due to fall ([facility]) Fatigue Fibromyalgia Fracture Fracture of shaft of fibula GERD (gastroesophageal reflux disease) HLD (hyperlipidemia) on tricor Hyperlipidemia Hypertension Hypomagnesemia Hypopotassemia IBS (irritable bowel syndrome) Insomnia Intertrigo Knee pain Morbid obesity ([facility]) 03/11/2011 Myalgia Nausea Neck pain Neuropathy Nocturnal leg cramps Non-cardiac chest pain Obesity CASSIE (obstructive sleep apnea) 07/08/2011 Other polyp of sinus Other specified anemias Personal history (more content not included)... Normal [facility] CNPNon 09-07-2024 CNPN Telephone (JOSYWS) ---- Margareth GONZALEZ ([id number]) 1965 F Date Time Provider Department 09/07/24 IGNACIO CHEATHAM During your visit today, we recorded the following information about you: Georgina Salmon, RN 09/07/2024 4:19 PM Signed Patient calling to state she was taken to [facility] ER yesterday via squad due to shortness [...] - CPAP/BIPAP/OTHER APAP 5-[address] [facility] - Blood-Glucose Meter (ONETOUCH VERIO FLEX [...] 5,000 Units by mouth twice daily. - Dcylkwef-Gt-Mkm-Fe- FA ( VITAMIN) ORAL Tab Take 1 tablet by mouth once daily. Meds Comments as of 11/28/2017: Pt states all meds were just gone over. Did not go over meds. Swathi Haddad Ma November 28, 2017 Problem List As Of Date 09/07/2024 Noted Resolved Acute gastritis [K29.00] 12/16/2007 08/04/2022 DM w/o complication type II, u (more content not included)... Normal [facility] 12 Lead EKGon 09-06-2024 12 Lead EKG [facility] Cardiovascular Services [address] [place] [address] 12 Lead EKG 09/06/24 1838 MR#: [id number] Acct: [id number] Name: Margareth GONZALEZ Rep #: [id number] : 1965 59 From: Josef Funk MD [...] ECG Confirmed by JOSEF FUNK MD ([id number]), marketing editor LINDA PICKETT ([id number]) on 09/08/2024 6:36:44 AM Referred By: Confirmed By: JOSEF FUNK MD 09/08/24 0636 Date Josef Funk MD CC: Dr. Johnathon Robertson MD; Dr. Ignacio Cheatham MD Signed Normal [facility] Absolute lymphocyte countOrd ered By: Johnathon Robertson on 09-06-2024 Lymphocytes Auto (Unsp spec) [#/Vol] 0.80 10*3/uL Low 0.83-4.51 [facility] Absolute neutrophil countOrd ered By: Johnathon Robertson on 09-06-2024 Neutrophils (Bld) [#/Vol] 3.0 10*3/uL 2.0-7.7 [facility] Anion gap in Serum or Plasma Ordered By: Johnathon Robertson on 09-06-2024 Anion gap [Moles/Vol] 14 mmol/L 5-15 [facility] Automated lymphocyte count a s percentage of total leukocytesOrdered By: Johnathon Robertson on 09-06-2024 Lymphocytes/100 WBC Auto (Unsp spec) 18.7 % Low 19-41 [facility] BUN/creatinine ratioOrdered By: Johnathon Robertson on 09-06-2024 Urea nitrogen/Creatinine [Mass ratio] 4.2 mg/mg Low 10-20 [facility] Basic Metabolic Profile (BMP )on 09-06-2024 BUN/CRE 4.2 RATIO Low 10-20 [facility] Comment on above: Performed By: #### L 500.2500, L501.4021, L100.0100 ####[facility] [address] [place], [address] Calcium [Mass/Vol] 8.8 mg/dL Normal 7.6-11.0 [facility] Comment on above: Performed By: #### L 500.2500, L501.4021, L100.0100 ####[facility] [address] [place], [address] Chloride [Moles/Vol] 93 mmol/L Low 98-108 [facility] Comment on above: Performed By: #### L 500.2500, L501.4021, L100.0100 ####[facility] [address] [place], [address] CO2 [Moles/Vol] 26.5 mmol/L Normal 21.0-32.0 [facility] Comment on above: Performed By: #### L 500.2500, L501.4021, L100.0100 ####[facility] [address] [place], [address] Creatinine [Mass/Vol] 4.01 mg/dL High 0.70-1.20 [facility] Comment on above: Performed By: #### L 500.2500, L501.4021, L100.0100 ####[facility] [address] [place], [address] ECRCL 17.48 ml/min Low 50-250 [facility] Comment on above: Performed By: #### L 500.2500, L501.4021, L100.0100 ####[facility] [address] [place], [address] GAP 14 Normal 5-15 [facility] Comment on above: Performed By: #### L 500.2500, L501.4021, L100.0100 ####[facility] [address] [place], [address] GFR/1.73 sq M.predicted among non-blacks MDRD (S/P/Bld) [Vol rate/Area] 12 mL/min/{1.73_m2} Low >60 [facility] Comment on above: Result Comment: mL/m in/1.73m2 CKD-EPI Creatinine Equation (2020) Performed By: #### L 500.2500, L501.4021, L100.0100 ####[facility] [address] [place], [address] Glucose [Mass/Vol] 174 mg/dL High 70-99 [facility] Comment on above: Performed By: #### L 500.2500, L501.4021, L100.0100 ####[facility] [address] [place], [address] Potassium [Moles/Vol] 4.8 mmol/L Normal 3.3-5.1 [facility] Comment on above: Result Comment: Hemo lysis present, Results??could be affected. ?? Performed By: #### L 500.2500, L501.4021, L100.0100 ####[facility] [address] [place], [address] Sodium [Moles/Vol] 133 mmol/L Normal 133-145 [facility] Comment on above: Performed By: #### L 500.2500, L501.4021, L100.0100 ####[facility] [address] [place], [address] Urea nitrogen [Mass/Vol] 17 mg/dL Normal 4-19 [facility] Comment on above: Performed By: #### L 500.2500, L501.4021, L100.0100 ####[facility] [address] [place], [address] Basophil percentageOrdered B y: Johnathon Robertson on 09-06-2024 Basophils/100 WBC (Bld) 0.7 % 0-1 [facility] CBC W/Diff, Automatedon -2024 Absolute Lymph 0.80 X10 3/uL Low 0.83-4.51 [facility] Comment on above: Performed By: #### L 500.2500, L501.4021, L100.0100 ####[facility] [address] [place], [address] Absolute Neut 3.0 X10 3/uL Normal 2.0-7.7 [facility] Comment on above: Performed By: #### L 500.2500, L501.4021, L100.0100 ####[facility] [address] [place], [address] Basophils/100 WBC (Bld) 0.7 % Normal 0-1 [facility] Comment on above: Performed By: #### L 500.2500, L501.4021, L100.0100 ####[facility] [address] [place], [address] Eosinophils/100 WBC (Bld) 3.7 % Normal 0-5 [facility] Comment on above: Performed By: #### L 500.2500, L501.4021, L100.0100 ####[facility] [address] [place], [address] Erythrocyte distribution width (RBC) [Ratio] 14.3 % Normal 11.6-14.6 [facility] Comment on above: Performed By: #### L 500.2500, L501.4021, L100.0100 ####[facility] [address] [place], [address] Hematocrit (Bld) [Volume fraction] 33.9 % Low 37-47 [facility] Comment on above: Performed By: #### L 500.2500, L501.4021, L100.0100 ####[facility] [address] [place], [address] Hemoglobin (Bld) [Mass/Vol] 11.0 g/dL Low 12.0-15.0 [facility] Comment on above: Performed By: #### L 500.2500, L501.4021, L100.0100 ####[facility] [address] [place], [address] IG% 0.200 Normal 0.0-0.9 [facility] Comment on above: Result Comment: IG% - Immature Granulocytes (promyelocytes, myelocytes and metamyelocytes) > 1% indicates that a LEFT SHIFT is Present. Performed By: #### L 500.2500, L501.4021, L100.0100 ####[facility] [address] [place], [address] Lymphocytes/100 WBC (Bld) 18.7 % Low 19-41 [facility] Comment on above: Performed By: #### L 500.2500, L501.4021, L100.0100 ####[facility] [address] [place], [address] MCH (RBC) [Entitic mass] 31.2 pg Normal 27.0-32.0 [facility] Comment on above: Performed By: #### L 500.2500, L501.4021, L100.0100 ####[facility] [address] [place], [address] MCHC (RBC) [Mass/Vol] 32.4 g/dL Normal 32-36 [facility] Comment on above: Performed By: #### L 500.2500, L501.4021, L100.0100 ####[facility] [address] [place], [address] MCV (RBC) [Entitic vol] 96.0 fL Normal 81-99 [facility] Comment on above: Performed By: #### L 500.2500, L501.4021, L100.0100 ####[facility] [address] [place], [address] Monocytes/100 WBC (Bld) 7.5 % Normal 0-10 [facility] Comment on above: Performed By: #### L 500.2500, L501.4021, L100.0100 ####[facility] [address] [place], [address] Neutrophils/100 WBC (Bld) 69.2 % Normal 47-70 [facility] Comment on above: Performed By: #### L 500.2500, L501.4021, L100.0100 ####[facility] [address] [place], [address] Nucleated RBC (Bld) [#/Vol] 0 10*3/uL Normal 0-5 [facility] Comment on above: Performed By: #### L 500.2500, L501.4021, L100.0100 ####[facility] [address] [place], [address] Platelet mean volume (Bld) [Entitic vol] 10.4 fL Normal 6.2-12.0 [facility] Comment on above: Performed By: #### L 500.2500, L501.4021, L100.0100 ####[facility] [address] [place], [address] Platelets (Bld) [#/Vol] 176 10*3/uL Normal 150-450 [facility] Comment on above: Performed By: #### L 500.2500, L501.4021, L100.0100 ####[facility] [address] [place], [address] RBC (Bld) [#/Vol] 3.53 10*6/uL Low 4.2-5.4 [facility] Comment on above: Performed By: #### L 500.2500, L501.4021, L100.0100 ####[facility] [address] [place], [address] RDW SD 49.5 fl High 35.1-43.9 [facility] Comment on above: Performed By: #### L 500.2500, L501.4021, L100.0100 ####[facility] [address] [place], [address] WBC (Bld) [#/Vol] 4.3 10*3/uL Low 4.4-11.0 [facility] Comment on above: Performed By: #### L 500.2500, L501.4021, L100.0100 ####[facility] [address] [place], [address] Kesha 09-06-2024 BO Telephone (ANDREA) ---- Margareth GONZALEZ ([id number]) 1965 F Date Time Provider Department 09/06/24 [...] - CPAP/BIPAP/OTHER APAP 5-[address] [facility] - Blood-Glucose Meter (ONETOUCH VERIO FLEX [...] - Blood-Glucose Meter,Continuous (FREESTYLE FESTUS 3 READER) [facility] Dispense one reader kit. E11.9 DIALYSIS PATIENT [...] 5,000 Units by mouth twice daily. - Znrfhbgt-Nn-Zgv-Fe- FA ( VITAMIN) ORAL Tab Take 1 [...] pain [ (more content not included)... Normal [facility] CTA Chest W/WO Contraston CTA Chest W/WO Contrast [facility] Imaging Services [address] [place] [address] CTA Chest W/WO Contrast MR#: [id number] Acct: [id number] Name: Margareth GONZALEZ Rep #: [id number] : 1965 F 59 From: Frank Tabor MD PCP: Dr. Ignacio Cheatham MD Status: [facility] ER Study: CTA Chest W/WO Contrast Date of Exam: 09/06/24 Exam# [id number] Ordering Dr: Johnathon Robertson MD PROCEDURE: CTA [...] pleural effusions. Mild pericardial effusion. Reading Location: [id number] CC: Dr. Johnathon Robertson MD; Dr. Ignacio Cheatham MD Archival Records Clerk: Signed Normal [facility] Carbon dioxide, total [Moles /volume] in Central venous bloodOrdered By: Johnathon Robertson on 09-06-2024 CO2 [Moles/Vol] 26.5 mmol/L 21.0-32.0 [facility] Chest 1 View (Portable)on Chest 1 View (Portable) [facility] Imaging Services [address] [place] [address] Chest 1 View (Portable) MR#: [id number] Acct: [id number] Name: Margareth GONZALEZ Rep #: [id number] : 1965 F 59 From: Frank Tabor MD PCP: Dr. Ignacio Cheatham MD Status: [facility] ER Study: Chest 1 View (Portable) Date of Exam: 09/06/24 Exam# [id number] Ordering Dr: Johnathon Robertson MD PROCEDURE: CHEST [...] IMPRESSION: Pulmonary findings as above. Reading Location: [id number] CC: Dr. Johnathon Robertson MD; Dr. Ignacio Cheatham MD Archival Records Clerk: Signed Normal [facility] Chloride assayOrdered By: Tyree Robertson on 09-06-2024 Chloride [Moles/Vol] 93 mmol/L Low 98-108 [facility] D-Dimer Quantitative (DVT/PE )on 09-06-2024 D-DIMER QUANT 1.90 FEU/ug/m Invalid Interpretation Code 0.27-0.49 [facility] Comment on above: Result Comment: D-Di britt ELEVATED (>0.49): Additional studies and clinical assessments are indicated to conclude diagnosis of: Deep Vein Thrombosis (DVT) or Pulmonary Embolism (PE) CRITICAL VALUE CALLED TO BONY BOYD 09/06/241952 Laine Leblanc. RESULTS READ BACK BY SAME. Performed By: #### L 300.8000 #### [facility] Laboratory [address] [place], [address] Emergency Department Summary on 09-06-2024 Emergency Department Summary [facility] Medical Records Department [address] [place] [address] Emergency Department Summary 09/06/24 MR#: [id number] Acct: [id number] Name: Margareth GONZALEZ Rep #: [id number] : 1965 59 From: Johnathon Robertson MD [...] TAD Risk Factors: Negative for Marfan's Syndrome [facility] Medical History Fracture of fibula, right, closed [...] Type Severity Reaction Status Date / Time miami juan Allergy Unknown UNKNOWN Verified 09/06/24 18:45 mold Allergy Unknown unknown Verified 09/06/24 18:45 lisinopril Allergy unknown Verified 09/06/24 18:45 Penicillins Allergy Anaphylaxis Verified 09/06/24 18:45 tetracycline (Tetracycline) Allergy Anaphylaxis Verified 09/06/24 18:45 codeine AdvReac Abd Verified 09/06/24 18:45 cramps/diarrhea diphenhydramine HCl (From AdvReac Upset Verified 09/06/24 18:45 Benadryl) Stomach hydrocodone bi (more content not included)... Normal [facility] Eosinophil percentageOrdered By: Johnathon Robertson on 09-06-2024 Eosinophils/100 WBC (Bld) 3.7 % 0-5 [facility] Erythrocyte distribution wid th ratioOrdered By: Johnathon Robertson on 09-06-2024 Erythrocyte distribution width (RBC) [Ratio] 14.3 % 11.6-14.6 [facility] Erythrocyte distribution wid th standard deviationOrdered By: Johnathon Robertson on 09-06-2024 Erythrocyte distribution width (RBC) [Ratio] 49.5 fl High 35.1-43.9 [facility] Glomerular filtration rate ( GFR) estimation/1.73 sq m using serum, plasma, or whole bOrdered By: Johnathon Robertson on 09-06-2024 GFR/1.73 sq M.predicted among non-blacks MDRD (S/P/Bld) [Vol rate/Area] 12 mL/min/{1.73_m2} Low >60 [facility] Comment on above: mL/min/1.73m2 CKD-EP I Creatinine Equation (2020) Hematocrit Auto (Bld) [Volum e fraction]Ordered By: Johnathon Robertson on 09-06-2024 Hematocrit (Bld) [Volume fraction] 33.9 % Low 37-47 [facility] Hemoglobin measurementOrdere d By: Johnathon Robertson on 09-06-2024 Hemoglobin (Bld) [Mass/Vol] 11.0 g/dL Low 12.0-15.0 [facility] Immature granulocytes/100 WB C Auto (Bld)Ordered By: Johnathon Robertson on 09-06-2024 Immature granulocytes/100 WBC (Bld) 0.200 % 0.0-0.9 [facility] Comment on above: IG% - Immature Granu locytes (promyelocytes, myelocytes and metamyelocytes) > 1% indicates that a LEFT SHIFT is Present. L499.0042on 09-06-2024 Trop T High Sen 90 ng/L Invalid Interpretation Code <=14 [facility] Comment on above: Result Comment: Crit ical Result(s) Called MELISSA at: 2156 by: NIECY??Results read back by same. Performed By: #### L 499.0042 ####[facility] [address] [place], [place], [address] L499.0043on 09-06-2024 Trop T High Sen Normal <=14 [facility] Comment on above: Result Comment: PT D ISCHARGED Performed By: #### L 499.0043 #### [facility] [address] [place], [place], [address] L501.4021on 09-06-2024 Trop T High Sen 89 ng/L Invalid Interpretation Code <=14 [facility] Comment on above: Result Comment: Crit ical Result(s) Called NAKIA at: 1940 by: NIECY??Results read back by same. Performed By: #### L 500.2500, L501.4021, L100.0100 ####[facility] [address] [place], [address] MCV (mean corpuscular volume ) determinationOrdered By: Johnathon Robertson on 09-06-2024 MCV (RBC) [Entitic vol] 96.0 fL 81-99 [facility] Mean corpuscular hemoglobin (MCH) determinationOrdered By: Johnathon Robertson on 09-06-2024 MCH (RBC) [Entitic mass] 31.2 pg 27.0-32.0 [facility] Mean corpuscular hemoglobin concentration (MCHC) determinationOrdered By: Johnathon Robertson on 09-06-2024 MCHC (RBC) [Mass/Vol] 32.4 g/dL 32-36 [facility] Mean platelet volume determi nationOrdered By: Johnathon Robertson on 09-06-2024 Platelet mean volume (Bld) [Entitic vol] 10.4 fL 6.2-12.0 [facility] Monocyte percentageOrdered B y: Johnathon Robertson on 09-06-2024 Monocytes/100 WBC (Bld) 7.5 % 0-10 [facility] Neutrophil percentageOrdered By: Johnathon Robertson on 09-06-2024 Neutrophils/100 WBC (Bld) 69.2 % 47-70 [facility] Nucleated red blood cell per centageOrdered By: Johnathon Robertson on 09-06-2024 Nucleated RBC/100 WBC (Bld) [Ratio] 0 % 0-5 [facility] Platelet countOrdered By: Tyree Robertson on 09-06-2024 Platelets (Bld) [#/Vol] 176 10*3/uL 150-450 [facility] Potassium measurement (mass/ volume)Ordered By: Johnathon Robertson on 09-06-2024 Potassium (Unsp spec) [Mass/Vol] 4.8 mmol/L 3.3-5.1 [facility] Comment on above: Hemolysis present, R esults could be affected. RBC Auto (Bld) [#/Vol]Ordere d By: Johnathon Robertson on 09-06-2024 RBC (Bld) [#/Vol] 3.53 10*6/uL Low 4.2-5.4 [facility] Serum creatinine measurement (mass/volume)Ordered By: Johnathon Robertson on 09-06-2024 Creatinine [Mass/Vol] 4.01 mg/dL High 0.70-1.20 [facility] Serum glucose measurement (m ass/volume)Ordered By: Johnathon Robertson on 09-06-2024 Glucose [Mass/Vol] 174 mg/dL High 70-99 [facility] Serum or plasma calcium joya urement (mass/volume)Ordered By: Johnathon Robertson on 09-06-2024 Calcium [Mass/Vol] 8.8 mg/dL 7.6-11.0 [facility] Serum or plasma urea nitroge n measurement (mass/volume)Ordered By: Johnathon Robertson on 09-06-2024 Urea nitrogen [Mass/Vol] 17 mg/dL 4-19 [facility] Sodium levelOrdered By: Johnathon Robertson on 09-06-2024 Sodium [Moles/Vol] 133 mmol/L 133-145 [facility] Troponin T.cardiac [Mass/vol ume] in Serum or Plasma by High sensitivity methodOrdered By: Johnathon Robertson on 09-06-2024 Troponin T.cardiac High sensitivity method [Mass/Vol] 90 ng/L High <14 [facility] Comment on above: Critical Result(s) Yonatan TORRES at: 2156 by: NIECY Results read back by same. Troponin T.cardiac High sensitivity method [Mass/Vol] 89 ng/L High <14 [facility] Comment on above: Critical Result(s) Yonatan YEE at: 1940 by: NIECY Results read back by same. White blood cell (WBC) count Ordered By: Johnathon Robertson on 09-06-2024 WBC (Bld) [#/Vol] 4.3 10*3/uL Low 4.4-11.0 [facility] HISTORY PHYSICALon HISTORY PHYSICAL HNO ID: [id number] Author: ELEUTERIO WILLIAMSON MD Service: Vascular Surgery [...] DATE: August 26, 2024 TIME: 10:40 AM [facility] OPERATIVE NOon 08-26-2024 OPERATIVE NO HNO ID: [id number] Author: ELEUTERIO WILLIAMSON MD Service: Vascular Surgery Author Type: Physician Type: Operative Report Filed: 08/28/2024 20:40 Note Text: OPERATIVE/PROCEDURE REPORT LOG ID: [id number] Surgery/Procedure Date: 08/26/2024 Incision/Procedure Start Time: 11:21 AM Incision Close/Procedure End Time: 11:45 AM Surgeon(s)/Procedur alist(s) and Education Faculty Member(s): Surgeons and Role: * Eleuterio Williamson MD [...] details: The patient was taken to the supervisor laboratory and laid supine on the operating table. [...] The needle was exchanged out for a 4-Taiwanese micropuncture sheath. The transitional sheath was used [...] sheath was then upsized to a short 6-Taiwanese sheath. The stenosis was crossed and ballooned [...] qualified resident/fellow was available. Eleuterio Williamson MD [facility] 08-24-2024 [facility] Telephone ([facility]) ---- Margareth GONZALEZ ([id number]) 1965 F Date Time Provider Department 08/24/24 [facility] During your visit today, we recorded [...] - CPAP/BIPAP/OTHER APAP 5-[address] [facility] - Blood-Glucose Meter (ONETOUCH VERIO FLEX [...] - Blood-Glucose Meter,Continuous (FREESTYLE FESTUS 3 READER) [facility] Dispense one reader kit. E11.9 DIALYSIS PATIENT [...] 5,000 Units by mouth twice daily. - Teaprdes-Tz-Nan-Fe- FA ( VITAMIN) ORAL Tab Take 1 [...] tear [ (more content not included)... Normal [facility] 08-12-2024 [facility] Telephone ([facility]) ---- Margareth GONZALEZ ([id number]) 1965 F Date Time Provider Department 08/12/24 [...] a message Please call patient to reschedule [phone] Ashley Fraire 08/15/2024 12:36 PM Signed Spoke [...] - CPAP/BIPAP/OTHER APAP 5-[address] [facility] - Blood-Glucose Meter (ONETOUCH VERIO FLEX [...] - Blood-Glucose Meter,Continuous (FREESTYLE FESTUS 3 READER) [facility] Dispense one reader kit. E11.9 DIALYSIS PATIENT [...] 5,000 Units by mouth twice daily. - Fzqcvzbi-Jv-Hbu-Fe- FA ( VITAMIN) ORAL Tab Take 1 [...] nail [B35.1] (more content not included)... Normal [facility] CNCOon 08-10-2024 CNCO Letter Text Normal [facility] CNOVon 08-10-2024 CNOV Office Visit (WSTR) ---- Margareth GONZALEZ ARNOLD ([id number]) 1965 F Date Time Provider Department 08/10/24 1:30 PM [facility] During your visit today, we recorded the following information about you: Temperature Pulse Respiration Blood pressure 98 degrees 100/minute 20/minute 158/80 Weight 85 kg Hever Cheema, MOLDER TRIMMER.BLOCK PAVER 08/10/2024 2:49 PM Signed Subjective Patient ID: Arnold is a 59 year old female who presents for No chief complaint on file.. The history is provided by the patient. No j2ee android developer was used. Patient presents to clinic via [...] Chronic kidney disease Contraceptive management Depression Diabetes ([facility]) Diarrhea DVT, lower extremity ([facility]) 08/2014 Right leg (6) Esophagitis ESRD (end stage renal disease) ([facility]) 07/03/2022 Facial fracture due to fall ([facility]) Fatigue Fibromyalgia Fracture Fracture of shaft of fibula GERD (gastroesophageal reflux disease) HLD (hyperlipidemia) on tricor Hyperlipidemia Hypertension Hypomagnesemia Hypopotassemia IBS (irritable bowel syndrome) Insomnia Intertrigo Knee pain Morbid obesity ([facility]) 03/11/2011 Myalgia Nausea Neck pain [...] ALLERGIES Vicodin [Hydrocodone-Acetam inophen], Balsam 115, Balsam Blaine, Barium Sulfate, Benadryl Allergy Decongestant, Benadryl [Diphenhydramine Hcl], Codeine, Lisinopril, Mold, Nsaids (Non-Steroidal Anti-Inflammatory Drug), Penicillins, Seasonal Allergies, Tetracycline, Vanilla Extract, and Vanilla Extract Flavor MEDICATIONS CPAP/BIPAP/OTHER APAP 5-20 cmH2O DME [facility] Blood-Glucose Meter (ONETOUCH VERIO FLEX METER) [...] PATIENT Blood-Glucose Meter,Continuous (FREESTYLE FESTUS 3 READER) [facility] Dispense one reader kit. E11.9 DIALYSIS PATIENT dulaglutide (TRULICITY) 0.75 mg/0.5 mL pen injector Inject 0.75 mg subcutaneously one time a week. DX: E11.40 Type 2 DM pregabalin (LYRICA) 25 mg capsule Take 1 capsule by mouth daily at bedtime for 90 days. hydrOXYzine HCl (ATARAX) (more content not included)... Normal [facility] Castro 08-04-2024 CNCO Letter Text Normal [facility] Kesha 08-04-2024 BO Telephone (AGSPINE3) ---- LISAMargareth BARRETT ([id number]) 1965 F [place] Date Time Provider Department 08/04/24 EFRA GALARZAPINE3 During your visit today, we recorded the following information about you: James Mc 08/04/2024 2:05 PM Signed No Show Documentation M Arnold Gonzalez no showed for an appointment on 08/04/24 with Efra Galarza APRN.BLOCK PAVER at 1:00. She was scheduled for new [...] 08/04/2024 - CPAP/BIPAP/OTHER APAP 5-20 cmH2O DME [facility] - Blood-Glucose Meter (ONETOUCH VERIO FLEX [...] 5,000 Units by mouth twice daily. - Wqtdigmr-Mx-Ryq-Fe- FA ( VITAMIN) ORAL Tab Take 1 [...] Unspecified Iron (more content not included)... Normal [facility] Kesha 08-01-2024 NOYN Telephone (FAMPWS) ---- Margareth GONZALEZ ([id number]) 1965 F [place] Date Time Provider Department 08/01/24 IGNACIO CHEATHAM During your visit today, we recorded the following information about you: Chloe Carpenter LPN 08/01/2024 3:27 PM Signed [facility] sends fax that Trulicity requires a prior [...] Fully Assessed Reason for Visit: Insurance Authorization [[id number]] Cmt: Mikayla Prescriptions as of 08/02/2024 - CPAP/BIPAP/OTHER APAP 5-20 cmH2O DME [facility] - Blood-Glucose Meter (ONETOUCH VERIO FLEX [...] 5,000 Units by mouth twice daily. - Ljiadplf-Gz-Eyb-Fe- FA ( VITAMIN) ORAL Tab Take 1 [...] 4 c (more content not included)... [facility] Telephone (TRACY) ---- Margareth GONZALEZ ([id number]) 1965 F [place] Date Time Provider Department 07/29/24 ALONDRA CHUNG During your visit today, we recorded the following information about you: Arnold Bocanegra LPN 07/29/2024 2:25 PM Signed Patient calling asking that Alondra can see her CT Chest results that Tresa Marcum ROLLING MACHINE OPERATOR had her get done. Patient said she is not going to set up an appt with Pulmonary right now. She has dialysis and the nurses there check her lungs 3 times weekly, and she will have issues getting appt with all of her dialysis days. I had went over notes from Tresa Marcum again with her and told ROLLING MACHINE OPERATOR wants her to see Pulmonary, she still [...] She would like to change DME to [facility]. NEHAL Groves Rebecca, APRN.NOY 07/29/2024 4:33 PM Signed Order printed for PAP for [facility] Alondra Chung APRN.Nataly Sims LPN 08/01/2024 8:40 AM Signed Faxed CPAP new device order to [facility]. NEHAL Groves Krystle, RN 08/01/2024 9:06 AM Addendum Eriberto with [facility] calls to let provider know that they are out of network for C-pap orders that were received. Call placed to patient and notified. She requests orders just be sent to [facility] as she knows they are in Network. Faxed per request to [facility] at [phone]. Diana Brand RN Allergies As of Date: [...] Visit Diagnosis:Essential hypertension [I10] Order(s):PAP THERAPY ORDER [[id number]] Order #: [id number]: 1 CPAP/BIPAP/OTHERAPA P 5-[address] [facility] eachRfl: 0 Prescriptions as of 08/01/2024 - CPAP/BIPAP/OTHER APAP 5-[address] [facility] - Blood-Glucose Meter (ONETOUCH VERIO FLEX [...] - Blood-Glucose Meter,Continuous (FREESTYLE FESTUS 3 READER) [facility] Dispense one reader kit. E11.9 DIALYSIS PATIENT [...] (TYLENOL) 500 (more content not included)... Normal [facility]20[facility] ---- Margareth GONZALEZ ([id number]) 1965 F Date Time Provider Department 07/28/24 [...] Eugenia Palencia OCCA 08/03/2024 10:32 AM Signed [facility] requested duplex and notified of Dr Jackson's response via fax. Transmission complete to [phone]. Jenni Castro RN 08/09/2024 9:20 AM Addendum Saira Jackson, DO You; [facility]8 days ago Reviewed her duplex. Her graft has adequate flow for dialysis. If her pain has improved, no need for intervention. If she is having increased pain during dialysis or issues with clearance/flow, would recommend fistulogram Call dialysis to follow up for update, spoke with Simona who spoke with instrument and electrical technician. They are reporting prolonged bleeding after [...] - CPAP/BIPAP/OTHER APAP 5-[address] [facility] - Blood-Glucose Meter (ONETOUCH VERIO FLEX METER) Dispense one meter kit. E11.9 - blood sugar diagnostic (ONETOUCH VERIO TEST STRIPS) test strip Checks once per day to calibrate CGM - lancets (Simulated Surgical SystemsTOUCH DELICA PLUS LANCET) 33 gauge Checks once [...] 5,000 Units by mouth twice daily. - Meauhgbk-Xr-Zym-Fe- FA ( VITAMIN) ORAL Tab Take 1 tablet by mouth once da (more content not included)... Normal [facility] CT CHEST WO IVCONon 07-28-19 CT CHEST WO IVCON * * *Final Report* * * DATE OF EXAM: Jul 27 2024 2:44PM [facility] 0541 - CT CHEST WO IVCON / [...] be communicated with the ordering provider via [employer] staff message or phone message by Imaging Support Services within 2 business days of report finalization. --END OF FINDING-- Archival Records Clerk: SHAMAR Transcribe Date/Time: Jul 28 2024 6:57A Dictated by : MICHAEL CANO MD This examination was interpreted and the report reviewed and electronically signed by: MICHAEL CANO MD on Jul 28 2024 7:06AM EST [id number] ACTIONABLE Invalid Interpretation Code [facility] US A/V FISTULA GRAFT UNL VAS LABon 07-27-2024 US A/V FISTULA GRAFT UNL VAS LAB Non-Invasive Vascular [facility] Upper Extremity Arterial Duplex Unilateral - Left [...] physician: Marco Benítez MD, RPVI Final CC [employer] [facility] : [id number] See Link below for Image Normal [facility] CNOVon 07-06-2024 CNOV Office Visit (ENWSTR) ---- LISAMargareth ([id number]) 1965 F [place] Date Time Provider Department 07/06/24 2:00 PM TRINIDAD FRAZIER ENWSTR During your visit today, we recorded the following information about you: Temperature Pulse Respiration Blood pressure 98.3 degrees 95/minute 14/minute 160/84 Weight 83.5 kg Trinidad Frazier, PATRICE.BLOCK PAVER 07/06/2024 1:59 PM Signed OFFICE VISIT PROGRESS [...] < > (more content not included)... Normal [facility] CNPNon 07-06-2024 CNPN Telephone (ENWSTR) ---- Margareth GONZALEZ ([id number]) 1965 F Date Time Provider Department 07/06/24 TRINIDAD FRAZIER ENWSTR During your visit today, we recorded the following information about you: Audra Sparks MA 07/06/2024 2:57 PM Signed Cover My Meds prior auth soriano [id number] required. ALANA Mir Lakieta D 07/08/2024 2:58 PM Signed BREANNA Whitfield has been archived. Please confirm what medication needs a pa to process. Delfin Echevarria Prior Developer [facility] [place] Audra Sparks MA 07/08/2024 3:05 PM Signed Info off cover my meds. Sorry. 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 E11.9 DIALYSIS PATIENT [...] 5,000 Units by mouth twice daily. - Alaozecl-Fa-Wwg-Fe- FA ( VITAMIN) ORAL Tab Take 1 [...] [R60.9] 08/31 (more content not included)... [facility] ---- Margareth GONZALEZ ([id number]) 1965 F Date Time Provider Department 07/05/24 [...] Date Reviewed: 07/04/2024 Reviewed by: Alondra Chung APRN.BLOCK PAVER - Fully Assessed Prescriptions as of 07/05/2024 [...] As needed. - flash glucose scanning reader (Ecloud ([place]) Information and TechnologySTYLE FESTUS 2 READER) Use to check glucose [...] 1 tablet by mouth once daily. - Lljqoqqg-Jm-Fkv-Fe- FA ( VITAMIN) ORAL Tab Take 1 [...] 02/21/2019 Fibromy (more content not included)... Normal [facility] CNOVon 07-04-2024 CNOV Office Visit (SLEWST) ---- Margareth GONZALEZ ([id number]) 1965 F Date Time Provider Department 07/04/24 2:30 PM ALONDRA CHUNG During your visit today, we recorded the following information about you: Pulse Respiration Blood pressure Weight 107/minute 16/minute 187/94 83.4 kg Height 1.727 m Alondra Chung APRN.BLOCK PAVER 07/04/2024 5:14 PM Signed [facility] New Patient Evaluation PATIENT NAME: Margareth Gonzalez DATE OF SERVICE: July 03, 2024 Recording using ambient Nutrino software for draft documentation of the visit was discussed with the patient/authorized aircraft sales representative; all questions welcomed and answered. Patient/authorized aircraft sales representative agreed to proceed CONSULTING PROVIDER: Sha Myrick [id number] [facility] [id number] REASON FOR CONSULT: Sha Myrick sends the [...] dialysis for 2 years, attends sessions at [facility]. - Receives iron and Mircera typically every [...] Home Sleep (more content not included)... Normal [facility] Inital Evaluation (1) - PTon 06-09-2024 Inital Evaluation (1) - PT [facility] [address] [place] [address]. [address] [place] [address] / REHABILITATION SERVICES INITIAL EVALUATION MR#: [id number] Acct: [id number] Name: Margareth GONZALEZ Rep #: [id number] : 1965 59 From: Cristi Meneses PT, Cert. MD Beasley, OCS Referring Dr.: REHANA Chowdhury Status: REG R Insurance: [facility] 12/31/17 MEDICAID Patient's Visit Information Visit [...] 1 step. Patient has tub/shower. Patient has case briefer. I with ADLS and bathing. In process in getting GEM STONE CUTTER . Patient has leg pain .Patient 300 ft then needs to rest due to leg pain and stand < 5mins affects ADLS and housework tasks . Patient walks with out acne in house. 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 No SOB. Patient not sleeping . Patient seen DR RUGGIERO and recommended [facility]. Patient was in [facility] for Rehab for 4 months. Patient condition [...] to be FAXED BACK to us at [phone] for Medicare purposes. For Medicare only, by signing this I certify the plan of care. (more content not included)... Normal [facility] CNOVon 06-01-2024 CNOV Office Visit (FAMPWS) ---- Margareth GONZALEZ ([id number]) 1965 F LV Date Time Provider Department 06/01/24 1:40 PM [facility] During your visit today, we recorded the following information about you: Pulse Respiration Blood pressure Weight 95/minute 16/minute 184/92 84.6 kg Tresa Marcum APRN.BLOCK PAVER 06/01/2024 2:22 PM Signed - Discontinue Glipizide for now; monitor blood sugar levels. - Start Trulicity at a lower dose for 4 doses, then switch to 1.5 mg as prescribed; medication sent to [facility] pharmacy. - Complete lab work (CBC, CMP, Magnesium, A1c, Cholesterol Panel) at dialysis center. - Schedule appointments with Endocrinology and Sleep Medicine. - Schedule hydrotherapy at [facility]; order will be faxed to [facility]. - Schedule follow-up appointments with Pain Management and Neurology. - schedule repeat chest CT. - Next follow-up appointment in [address] Cheatham. Tresa Marcum APRN.BLOCK PAVER 06/01/2024 4:55 PM Signed This is a [...] dialysis three times a week. - Sees hazardous substances scientist every other month and CMP monthly. - [...] Chronic kidney disease Contraceptive management Depression Diabetes ([facility]) Diarrhea DVT, lower extremity ([facility]) 08/2014 Right leg (6) Esophagitis ESRD (end stage renal disease) ([facility]) 07/03/2022 Facial fracture due to fall ([facility]) ([facility]) Fatigue Fibromyalgia Fracture Fracture of shaft of fibula GERD (gastroesophageal reflux disease) HLD (hyperlipidemia) on tricor Hyperlipidemia Hypertension Hypomagnesemia Hypopotassemia IBS (irritable bowel syndrome) Insomnia Intertrigo Knee pain Morbid obesity ([facility]) 03/11/2011 Myalgia Nausea Neck pain [...] inophen], Balsam (more content not included)... Normal [facility] CNPNon 05-10-2024 [facility] ([facility]) ---- Margareth GONZALEZ ([id number]) 1965 F Date Time Provider Department 05/10/24 IGNACIO CHEATHAM [facility] During your visit today, we recorded the following information about you: Fabiola Jesus RN 05/10/2024 11:33 AM Signed Patient calling and is asking if provider can write orders for a home health aide. Patient states if provider can write this order she would like to have it faxed to [facility] at [phone]. GRACE Wilson William J, MD 05/10/2024 11:48 [...] Date Reviewed: 04/15/2024 Reviewed by: Sha Ray APRN.BLOCK PAVER - Fully Assessed Reason for Visit: Orders [681] Primary Visit Diagnosis:ESRD (end stage renal disease) ([facility]) [N18.6] Other Visit Diagnoses:Prolifera tive diabetic retinopathy associated with type 2 diabetes mellitus, unspecified laterality, unspecified proliferative retinopathy type ([facility]) [E11.3599] TIA (transient ischemic attack) [G45.9] Order(s):[facility] [[id number]] Order #: [id number]: 1 Prescriptions as of 05/11/2024 - hydrOXYzine [...] As needed. - flash glucose scanning reader (Ecloud ([place]) Information and TechnologySTYLE FESTUS 2 READER) Use to check glucose [...] 1 tablet by mouth once daily. - Rndorgga-Kx-Awc-Fe- FA ( VITAMIN) ORAL Tab Take 1 [...] 4 chronic (more content not included)... Normal [facility] CNOVon 04-15-2024 CNOV Office Visit (UCWSTR) ---- Margareth GONZALEZ ([id number]) 1965 F Date Time Provider Department 04/15/24 12:[address] [facility] During your visit today, we recorded the following information about you: Temperature Pulse Respiration Blood pressure 98 degrees 96/minute 20/minute 173/80 Weight 87 kg Sha Ray APRN.BLOCK PAVER 04/15/2024 12:57 PM Signed Subjective HPI Nontoxic-appearing [...] Depression Diabetes (HCC) Diarrhea DVT, lower extremity ([facility]) 08/2014 Right leg (6) Esophagitis ESRD (end stage renal disease) ([facility]) 07/03/2022 Facial fracture due to fall (HCC) ([facility]) Fatigue Fibromyalgia Fracture Fracture of [...] ALLERGIES Vicodin [Hydrocodone-Acetam inophen], Balsam 115, Balsam Blaine, Barium Sulfate, Benadryl Allergy Decongestant, Benadryl [Diphenhydramine [...] daily. TRULICITY (more content not included)... Normal [facility] 04-06-2024 [facility] Tele[facility] (NATALIE) ---- Margareth GONZALEZ ([id number]) 1965 F Date Time Provider Department 04/06/24 ANAT LOPEZ During your visit today, we recorded the following information about you: Anat Lopez APRN.[facility] 06/06/2024 7:13 AM Addendum Actionable Finding Follow up Patient Name: Margareth Gonzalez eMRN: [id number] : 1965 Patient Preferred PCP: Ignacio Cheatham MD 07/01/2024 in [facility] with IGNACIO CHEATHAM - 6 [...] nodules Ordering provider: Dr. Ignacio Cheatham MD [phone] Outreach attempts for Actionable Finding: MYC user active [x] SHEILA outreach MyChart sent 04/06/2024 Outcome: Added to ISN April 2024 last Per our protocol, this Actionable Finding is Closed based on the Final Criterion : Patient completed imaging that qualifies closure of the actionable finding Scheduled-07/27/2024 Anat Lopez APRN.BLOCK PAVER Actionable Findings [facility] [place] Office: [phone] Allergies As of Date: 04/06/2024 Noted Allergy [...] - CPAP/BIPAP/OTHER APAP 5-[address] [facility] - Blood-Glucose Meter (ONETOUCH VERIO FLEX METER) Dispense one meter kit. E11.9 - blood sugar diagnostic (ONETOUCH VERIO TEST STRIPS) test strip Checks once per day to calibrate CGM - lancets (Simulated Surgical SystemsTOUCH DELICA PLUS LANCET) 33 gauge Checks once [...] 5,000 Units by mouth twice daily. - Imvqifam-Au-Mrt-Fe- FA ( VITAMIN) ORAL Tab Take 1 tablet by mouth once daily. Meds Comments as of 11/28/2017: Pt states all meds were just gone over. Did not go over meds. Swathi Haddad Ma November 28, 2017 Problem List As Of Date (more content not included)... Normal [facility] 12 Lead EKGon 04-02-2024 12 Lead EKG [facility] Cardiovascular Services [address] [place] [address] 12 Lead EKG 04/02/24 1225 MR#: [id number] Acct: [id number] Name: Margareth GONZALEZ Rep #: [id number] : 1965 58 From: Josef Funk MD Attending Dr: Status: DEP ER Ordering Dr: Tyler Butler ROLLING MACHINE OPERATOR-C Date: 04/02/24 Location: ED Sex: F C [...] ECG Confirmed by JOSEF FUNK MD ([id number]), marketing editor LINDA PICKETT ([id number]) on 04/04/2024 8:18:00 AM Referred By: Dave Sanz Confirmed By: JOSEF FUNK MD 04/04/24 0818 Date Josef Funk MD CC: ROLLING MACHINE OPERATOR-Yonatan Butler; Dr. Dave Sanz DO; Dr. Ignacio Cheatham MD Signed Normal [facility] Brain/Head without Contrasto n 04-02-2024 Brain/Head without Contrast [facility] Imaging Services [address] [place] [address] Brain/Head without Contrast MR#: [id number] Acct: [id number] Name: Margareth GONZALEZ Rep #: [id number] : 1965 F 58 From: Ryan Echevarria MD PCP: Dr. Ignacio Cheatham MD Status: REG ER Study: Brain/Head without Contrast Date of Exam: 03/26 Exam# [id number] Ordering Dr: Tyler Butler EXAM: BRAIN/HEAD WITHOUT [...] evidence of acute intracranial pathology. Reading Location: [facility] CC: REHANA Butler; Dr. Ignacio Cheatham MD Archival Records Clerk: Signed Normal [facility] CBC W/Diff, Automatedon 02- Absolute Lymph 1.16 X10 3/uL Normal 0.83-4.51 [facility] Comment on above: Performed By: #### L 100.0100, L500.4050 #### [facility] Laboratory [address] [place], [address] Absolute Neut 2.8 X10 3/uL Normal 2.0-7.7 [facility] Comment on above: Performed By: #### L 100.0100, L500.4050 #### [facility] [address] [place], [address] Basophils/100 WBC (Bld) 0.9 % Normal 0-1 [facility] Comment on above: Performed By: #### L 100.0100, L500.4050 #### [facility] [address] [place], [address] Eosinophils/100 WBC (Bld) 1.8 % Normal 0-5 [facility] Comment on above: Performed By: #### L 100.0100, L500.4050 #### [facility] [address] [place], [address] Erythrocyte distribution width (RBC) [Ratio] 12.5 % Normal 11.6-14.6 [facility] Comment on above: Performed By: #### L 100.0100, L500.4050 #### [facility] [address] [place], [address] Hematocrit (Bld) [Volume fraction] 34.3 % Low 37-47 [facility] Comment on above: Performed By: #### L 100.0100, L500.4050 #### [facility] [address] [place], [address] Hemoglobin (Bld) [Mass/Vol] 11.4 g/dL Low 12.0-15.0 [facility] Comment on above: Performed By: #### L 100.0100, L500.4050 #### [facility] [address] [place], [address] IG% 0.200 Normal 0.0-0.9 [facility] Comment on above: Result Comment: IG% - Immature Granulocytes (promyelocytes, myelocytes and metamyelocytes) > 1% indicates that a LEFT SHIFT is Present. Performed By: #### L 100.0100, L500.4050 #### [facility] [address] [place], [address] Lymphocytes/100 WBC (Bld) 26.5 % Normal 19-41 [facility] Comment on above: Performed By: #### L 100.0100, L500.4050 #### [facility] [address] [place], [address] MCH (RBC) [Entitic mass] 31.1 pg Normal 27.0-32.0 [facility] Comment on above: Performed By: #### L 100.0100, L500.4050 #### [facility] [address] [place], [address] MCHC (RBC) [Mass/Vol] 33.2 g/dL Normal 32-36 [facility] Comment on above: Performed By: #### L 100.0100, L500.4050 #### [facility] [address] [place], [address] MCV (RBC) [Entitic vol] 93.5 fL Normal 81-99 [facility] Comment on above: Performed By: #### L 100.0100, L500.4050 #### [facility] [address] [place], [address] Monocytes/100 WBC (Bld) 6.8 % Normal 0-10 [facility] Comment on above: Performed By: #### L 100.0100, L500.4050 #### [facility] [address] [place], [address] Neutrophils/100 WBC (Bld) 63.8 % Normal 47-70 [facility] Comment on above: Performed By: #### L 100.0100, L500.4050 #### [facility] [address] [place], [address] Nucleated RBC (Bld) [#/Vol] 0 10*3/uL Normal 0-5 [facility] Comment on above: Performed By: #### L 100.0100, L500.4050 #### [facility] [address] [place], [address] Platelet mean volume (Bld) [Entitic vol] 9.7 fL Normal 6.2-12.0 [facility] Comment on above: Performed By: #### L 100.0100, L500.4050 #### [facility] [address] [place], [address] Platelets (Bld) [#/Vol] 182 10*3/uL Normal 150-450 [facility] Comment on above: Performed By: #### L 100.0100, L500.4050 #### [facility] [address] [place], [address] RBC (Bld) [#/Vol] 3.67 10*6/uL Low 4.2-5.4 [facility] Comment on above: Performed By: #### L 100.0100, L500.4050 #### [facility] [address] [place], [address] RDW SD 42.8 fl Normal 35.1-43.9 [facility] Comment on above: Performed By: #### L 100.0100, L500.4050 #### [facility] [address] [place], [address] WBC (Bld) [#/Vol] 4.4 10*3/uL Normal 4.4-11.0 [facility] Comment on above: Performed By: #### L 100.0100, L500.4050 #### [facility] [address] [place], [address] CTA Head AND Neck W/ Contras ton 04-02-2024 CTA Head AND Neck W/ Contrast [facility] Imaging Services [address] [place] [address] CTA Head AND Neck W/ Contrast MR#: [id number] Acct: [id number] Name: Margareth GONZALEZ [facility] Rep #: [id number] : 1965 F 58 From: Ryan Echevarria MD PCP: Dr. Ignacio Cheatham MD Status: REG ER Study: CTA Head AND Neck W/ Contrast Date of Exam: Exam# [id number] Ordering Dr: Tyler Butler ROLLING MACHINE OPERATORAnmol PROCEDURE: CTA HEAD AND NECK W/ CONTRAST [...] use of iterative reconstruction technique). Reading Location: [facility] CC: REHANA Butler; Dr. Ignacio Cheatham MD Archival Records Clerk: Signed Normal [facility] Chest 1 View (Portable)on Chest 1 View (Portable) [facility] Imaging Services [address] [place] [address] Chest 1 View (Portable) MR#: [id number] Acct: [id number] Name: Margareth GONZALEZ Rep #: [id number] : 1965 F 58 From: Ryan Echevarria MD PCP: Dr. Ignacio Cheatham MD Status: REG ER Study: Chest 1 View (Portable) Date of Exam: 04/02/24 Exam# [id number] Ordering Dr: Tyler Butler ROLLING MACHINE OPERATOR-Yonatan PROCEDURE: CHEST 1 VIEW (PORTABLE) REASON FOR [...] OF THE CHEST AND ABDOMEN. Reading Location: [facility] CC: ROLLING MACHINE OPERATOR-C Tyler Butler; Dr. Ignacio Cheatham MD Archival Records Clerk: Signed Normal [facility] Comprehensive Metabolic Prof ilon 04-02-2024 Albumin [Mass/Vol] 3.2 g/dL Normal 3.2-5.0 [facility] Comment on above: Performed By: #### L 100.0100, L500.4050 #### [facility] [address] [facility] [place], [address] Albumin/Globulin [Mass ratio] 0.9 {ratio} Normal 0.9-2.4 [facility] Comment on above: Performed By: #### L 100.0100, L500.4050 #### [facility] [address] [place], [address] ALK P 94 U/L Normal 45-117 [facility] Comment on above: Performed By: #### L 100.0100, L500.4050 #### [facility] [address] [place], [address] ALT [Catalytic activity/Vol] 19 U/L Normal 13-56 [facility] Comment on above: Performed By: #### L 100.0100, L500.4050 #### [facility] [address] [place], [address] AST [Catalytic activity/Vol] 22 U/L Normal 15-37 [facility] Comment on above: Performed By: #### L 100.0100, L500.4050 #### [facility] [address] [place], [address] Bilirubin [Mass/Vol] 0.50 mg/dL Normal 0.20-1.00 [facility] Comment on above: Result Comment: For patients on eltrombopag therapy, use of Dimension [place] TBIL is not recommended. Performed By: #### L 100.0100, L500.4050 #### [facility] [address] [place], [address] BUN/CRE 3.9 RATIO Low 10-20 [facility] Comment on above: Performed By: #### L 100.0100, L500.4050 #### [facility] [address] [place], [address] CA,Total 8.5 mg/dL Normal 8.5-10.1 [facility] Comment on above: Performed By: #### L 100.0100, L500.4050 #### [facility] [address] [place], [address] Chloride [Moles/Vol] 96 mmol/L Low 98-107 [facility] Comment on above: Performed By: #### L 100.0100, L500.4050 #### [facility] [address] [place], [address] CO2 [Moles/Vol] 29.0 mmol/L Normal 21.0-32.0 [facility] Comment on above: Performed By: #### L 100.0100, L500.4050 #### [facility] [address] [place], [address] Creatinine [Mass/Vol] 2.57 mg/dL High 0.55-1.02 [facility] Comment on above: Result Comment: The validity of the calculated GFR GFRAA in patients over 70 years has not been determined. Clinical correlation is essential. Performed By: #### L 100.0100, L500.4050 #### [facility] [address] [place], [address] ECRCL 28.12 ml/min Normal [facility] Comment on above: Performed By: #### L 100.0100, L500.4050 #### [facility] [address] [place], [address] EST GFR - AA 25 mL/min Low >60 [facility] Comment on above: Result Comment: Afri can Dominican GFR Calc Performed By: #### L 100.0100, L500.4050 #### [facility] [address] [place], [address] GAP 10 Normal 5-15 [facility] Comment on above: Performed By: #### L 100.0100, L500.4050 #### [facility] [address] [place], [address] GFR/1.73 sq M.predicted among non-blacks MDRD (S/P/Bld) [Vol rate/Area] 20 mL/min/{1.73_m2} Low >60 [facility] Comment on above: Result Comment: Non- GFR Calc Performed By: #### L 100.0100, L500.4050 #### [facility] [address] [place], [address] Globulin (S) [Mass/Vol] 3.7 g/dL Normal 2.2-4.2 [facility] Comment on above: Performed By: #### L 100.0100, L500.4050 #### [facility] [address] [place], [address] Glucose [Mass/Vol] 248 mg/dL High 74-106 [facility] Comment on above: Result Comment: Gluc ose result greater than or equal to 200 mg/dL suggests DIABETES MELLITUS per A.D.A. criteria. Performed By: #### L 100.0100, L500.4050 #### [facility] [address] [place], [address] Potassium [Moles/Vol] 3.3 mmol/L Low 3.5-5.1 [facility] Comment on above: Performed By: #### L 100.0100, L500.4050 #### [facility] [address] [place], [address] Sodium [Moles/Vol] 134 mmol/L Low 136-145 [facility] Comment on above: Performed By: #### L 100.0100, L500.4050 #### [facility] [address] [place], [address] T PROT 6.9 g/dL Normal 6.4-8.2 [facility] Comment on above: Performed By: #### L 100.0100, L500.4050 #### [facility] [address] [place], [address] Urea nitrogen [Mass/Vol] 10 mg/dL Normal 7-18 [facility] Comment on above: Performed By: #### L 100.0100, L500.4050 #### [facility] [address] [place], [address] Emergency Department Summary on 04-02-2024 Emergency Department Summary [facility] Medical Records Department [address] [place] [address] Emergency Department Summary 04/02/24 MR#: [id number] Acct: [id number] Name: Margareth GONZALEZ Rep #: [id number] : 1965 58 From: Tyler KIMBALL PCP: [...] sent home states that she went to [facility] was doing some shopping and she felt [...] above will add patient completed finger-nose and fdvf-ag-bbpx test bilaterally without any difficulty NIH of [...] Patient was advised to follow-up with her hazardous substances scientist as well as her primary care physician [...] happened approximate (more content not included)... Normal [facility] M100.678on 04-02-2024 M100.678 Pending SARS-CoV-2 (COVID 19) Negative INFLUENZA A Negative INFLUENZA B Negative RSV PCR Negative Normal [facility] Comment on above: Performed By: #### M 100.358 ####[facility] [id number] [place], [address] [facility] 03-30-2024 [facility] Telephone ([facility]) ---- Margareth GONZALEZH ([id number]) 1965 F LV Date Time Provider Department [...] As needed. - flash glucose scanning reader (Ecloud ([employer] and TechnologySTYLE FESTUS 2 READER) Use to check glucose [...] 1 tablet by mouth once daily. - Bekkpxwl-Fx-Abg-Fe- FA ( VITAMIN) ORAL Tab Take 1 tablet by mouth once daily. Meds Comments as of 11/28/2017: Pt states all meds were just gone over. Did not go over meds. Swathi Hadadd Ma November 28, 2017 Problem List As [...] Unspecified Ir (more content not included)... Normal [facility] CNOVon 03-25-2024 CNOV Office Visit (FAMPWS) ---- Margareth GONZALEZ ARNOLD ([id number]) 1965 F Date Time Provider Department 03/25/24 [...] to ER. Admitted for observation. Which facility: [facility] Date of visit: 03/17/24-03/18/24 Diagnosis: numbness Testing [...] mouth. As needed. flash glucose scanning reader (Ecloud ([employer]) [employer] and TechnologySTYLE FESTUS 2 READER) Use to check glucose [...] Take 81 mg by mouth every morning.) Iffettlt-Bt-Ybi-Fe- FA ( VITAMIN) ORAL Tab Take 1 [...] (6) Esophagitis ESRD (end stage renal disease) ([facility]) 07/03/2022 Facial fracture due to fall ([facility]) ([facility]) Fatigue Fibromyalgia Fracture Fracture of shaft of fibula GERD (gastroesophageal reflux disease) HLD (hyperlipidemia) on tricor Hyperlipidemia Hypertension Hypomagnesemia Hypopotassemia IBS (irritable bowel syndrome) Insomnia Intertrigo Knee pain Morbid obesity ([facility]) 03/11/2011 Myalgia Nausea Neck pain Neuropathy Nocturnal leg cramps Non-cardiac chest pain Obesity CASSIE (obstructive sleep apnea) 07/08/2011 Other polyp of si (more content not included)... Normal [facility] CNPNon 03-23-2024 CNPN Telephone ([facility]AMPWS) ---- Margareth GONZALEZ ([id number]) 1965 F Date Time Provider Department 03/23/24 IGNACIO CHEATHAM [facility] During your visit today, we recorded the following information about you: Georgina Salmon RN 03/23/2024 1:55 PM Signed Elenita with [facility] calling and states she will be faxing over forms regarding a Medicaid Program for patient. Please add ICD codes to form, and then fax form back to number provided. For any questions, Call Elenita at [phone] GRACE Lemus Brittany L, MA 03/28/2024 2:46 PM Signed [...] As needed. - flash glucose scanning reader (Ecloud ([place]) [employer] and TechnologySTYLE FESTUS 2 READER) Use to check glucose [...] 1 tablet by mouth once daily. - Qkkcckhx-Rm-Oxr-Fe- FA ( VITAMIN) ORAL Tab Take 1 [...] and midf (more content not included)... Normal [facility] Glucoseon 03-19-2024 FINGERSTICK GLU 282 mg/dL High 74-106 [facility] Comment on above: Result Comment: SONJA VARGAS OF PATIENT CARE PER NURSING PROTOCOL Performed By: #### L 501.080 ####[facility] [id number] [place], [address] Basic Metabolic Profile (BMP )on 03-18-2024 BUN/CRE 5.4 RATIO Low 10-20 [facility] Comment on above: Order Comment: Comme nts: NPO at [place] prior to lipid panel Performed By: #### L 500.2500, L100.0100, L500.4100 #### [facility] [address] [place], [address] CA,Total 9.2 mg/dL Normal 8.5-10.1 [facility] Comment on above: Order Comment: Comme nts: NPO at [place] prior to lipid panel Performed By: #### L 500.2500, L100.0100, L500.4100 #### [facility] [address] [place], [address] Chloride [Moles/Vol] 95 mmol/L Low 98-107 [facility] Comment on above: Order Comment: Comme nts: NPO at [place] prior to lipid panel Performed By: #### L 500.2500, L100.0100, L500.4100 #### [facility] [address] [place], [address] CO2 [Moles/Vol] 28.0 mmol/L Normal 21.0-32.0 [facility] Comment on above: Order Comment: Comme nts: NPO at [place] prior to lipid panel Performed By: #### L 500.2500, L100.0100, L500.4100 #### [facility] [address] [place], [address] Creatinine [Mass/Vol] 3.89 mg/dL High 0.55-1.02 [facility] Comment on above: Order Comment: Comme nts: NPO at [place] prior to lipid panel Result Comment: The validity of the calculated GFR GFRAA in patients over 70 years has not been determined. Clinical correlation is essential. Performed By: #### L 500.2500, L100.0100, L500.4100 #### [facility] [address] [place], [address] ECRCL 18.12 ml/min Normal [facility] Comment on above: Order Comment: Comme nts: NPO at [place] prior to lipid panel Performed By: #### L 500.2500, L100.0100, L500.4100 #### [facility] [address] [place], [address] EST GFR - AA 15 mL/min Low >60 [facility] Comment on above: Order Comment: Comme nts: NPO at [place] prior to lipid panel Result Comment: Afri can Dominican GFR Calc Performed By: #### L 500.2500, L100.0100, L500.4100 #### [facility] [address] [place], [address] GAP 10 Normal 5-15 [facility] Comment on above: Order Comment: Comme nts: NPO at [place] prior to lipid panel Performed By: #### L 500.2500, L100.0100, L500.4100 #### [facility] [address] [place], [address] GFR/1.73 sq M.predicted among non-blacks MDRD (S/P/Bld) [Vol rate/Area] 13 mL/min/{1.73_m2} Low >60 [facility] Comment on above: Order Comment: Comme nts: NPO at [place] prior to lipid panel Result Comment: Non- GFR Calc Performed By: #### L 500.2500, L100.0100, L500.4100 #### [facility] [address] [place], [address] Glucose [Mass/Vol] 288 mg/dL High 74-106 [facility] Comment on above: Order Comment: Comme nts: NPO at [place] prior to lipid panel Result Comment: Gluc ose result greater than or equal to 200 mg/dL suggests DIABETES MELLITUS per A.D.A. criteria. Performed By: #### L 500.2500, L100.0100, L500.4100 #### [facility] [address] [place], [address] Potassium [Moles/Vol] 4.3 mmol/L Normal 3.5-5.1 [facility] Comment on above: Order Comment: Comme nts: NPO at [place] prior to lipid panel Performed By: #### L 500.2500, L100.0100, L500.4100 #### [facility] [address] [place], [address] Sodium [Moles/Vol] 133 mmol/L Low 136-145 [facility] Comment on above: Order Comment: Comme nts: NPO at [place] prior to lipid panel Performed By: #### L 500.2500, L100.0100, L500.4100 #### [facility] [address] [place], [address] Urea nitrogen [Mass/Vol] 21 mg/dL High 7-18 [facility] Comment on above: Order Comment: Comme nts: NPO at [place] prior to lipid panel Performed By: #### L 500.2500, L100.0100, L500.4100 #### [facility] [address] [place], [address] Bedside Glucoseon 03-18-2024 FINGERSTICK GLU 138 mg/dL High 74-106 [facility] Comment on above: Result Comment: SONJA VARGAS OF PATIENT CARE PER NURSING PROTOCOL Performed By: #### L 100.0100, L500.4050 #### [facility] [address] [place], [address] CBC W/Diff, Automatedon 03-02 Absolute Lymph 1.51 X10 3/uL Normal 0.83-4.51 [facility] Comment on above: Performed By: #### L 500.2500, L100.0100, L500.4100 #### [facility] [address] [place], [address] Absolute Neut 3.0 X10 3/uL Normal 2.0-7.7 [facility] Comment on above: Performed By: #### L 500.2500, L100.0100, L500.4100 #### [facility] [address] [place], [address] Basophils/100 WBC (Bld) 1.0 % Normal 0-1 [facility] Comment on above: Performed By: #### L 500.2500, L100.0100, L500.4100 #### [facility] [address] [place], [address] Eosinophils/100 WBC (Bld) 2.3 % Normal 0-5 [facility] Comment on above: Performed By: #### L 500.2500, L100.0100, L500.4100 #### [facility] [address] [place], [address] Erythrocyte distribution width (RBC) [Ratio] 12.4 % Normal 11.6-14.6 [facility] Comment on above: Performed By: #### L 500.2500, L100.0100, L500.4100 #### [facility] [address] [place], [address] Hematocrit (Bld) [Volume fraction] 33.2 % Low 37-47 [facility] Comment on above: Performed By: #### L 500.2500, L100.0100, L500.4100 #### [facility] [address] [place], [address] Hemoglobin (Bld) [Mass/Vol] 10.8 g/dL Low 12.0-15.0 [facility] Comment on above: Performed By: #### L 500.2500, L100.0100, L500.4100 #### [facility] [address] [place], [address] IG% 0.400 Normal 0.0-0.9 [facility] Comment on above: Result Comment: IG% - Immature Granulocytes (promyelocytes, myelocytes and metamyelocytes) > 1% indicates that a LEFT SHIFT is Present. Performed By: #### L 500.2500, L100.0100, L500.4100 #### [facility] [address] [place], [address] Lymphocytes/100 WBC (Bld) 29.4 % Normal 19-41 [facility] Comment on above: Performed By: #### L 500.2500, L100.0100, L500.4100 #### [facility] [address] [place], [address] MCH (RBC) [Entitic mass] 31.9 pg Normal 27.0-32.0 [facility] Comment on above: Performed By: #### L 500.2500, L100.0100, L500.4100 #### [facility] [address] [place], [address] MCHC (RBC) [Mass/Vol] 32.5 g/dL Normal 32-36 [facility] Comment on above: Performed By: #### L 500.2500, L100.0100, L500.4100 #### [facility] [address] [place], [address] MCV (RBC) [Entitic vol] 97.9 fL Normal 81-99 [facility] Comment on above: Performed By: #### L 500.2500, L100.0100, L500.4100 #### [facility] [address] [place], [address] Monocytes/100 WBC (Bld) 8.6 % Normal 0-10 [facility] Comment on above: Performed By: #### L 500.2500, L100.0100, L500.4100 #### [facility] [address] [place], [address] Neutrophils/100 WBC (Bld) 58.3 % Normal 47-70 [facility] Comment on above: Performed By: #### L 500.2500, L100.0100, L500.4100 #### [facility] [address] [place], [address] Nucleated RBC (Bld) [#/Vol] 0 10*3/uL Normal 0-5 [facility] Comment on above: Performed By: #### L 500.2500, L100.0100, L500.4100 #### [facility] [address] [place], [address] Platelet mean volume (Bld) [Entitic vol] 9.8 fL Normal 6.2-12.0 [facility] Comment on above: Performed By: #### L 500.2500, L100.0100, L500.4100 #### [facility] [address] [place], [address] Platelets (Bld) [#/Vol] 193 10*3/uL Normal 150-450 [facility] Comment on above: Performed By: #### L 500.2500, L100.0100, L500.4100 #### [facility] [address] [place], [address] RBC (Bld) [#/Vol] 3.39 10*6/uL Low 4.2-5.4 [facility] Comment on above: Performed By: #### L 500.2500, L100.0100, L500.4100 #### [facility] [address] [place], [address] RDW SD 44.0 fl High 35.1-43.9 [facility] Comment on above: Performed By: #### L 500.2500, L100.0100, L500.4100 #### [facility] [address] [place], [address] WBC (Bld) [#/Vol] 5.1 10*3/uL Normal 4.4-11.0 [facility] Comment on above: Performed By: #### L 500.2500, L100.0100, L500.4100 #### [facility] [address] [place], [address] Discharge Instructionon 03-02 Discharge Instruction [facility] Medical Records Department [address] [place] [address] Instructions for Home/Discharge Instructions 03/18/24 1031 MR#: [id number] Acct: [id number] Name: Margareth GONZALEZ Rep #: [id number] : 1965 58 From: Branden Banks MD [...] MD; Dr. Ignacio Cheatham MD Signed Normal [facility] Hemoglobin A1con 03-18-2024 HbA1c (Bld) [Mass fraction] 10.5 % High 3.8-5.6 [facility] Comment on above: Result Comment: Norm al < 5.7 % Prediabetic 5.7 - 6.4 % Diabetic >or= 6.5 % Please note range changes. Performed By: #### L 501.9909 #### [facility] [address] [place], [address] Lipid Profileon 03-18-2024 Cholesterol [Mass/Vol] 191 mg/dL Normal 200 [facility] Comment on above: Order Comment: Comme nts: NPO at [place] prior to lipid panel Result Comment: <200 mg/dL Desirable 200-240 mg/dL Borderline >240 mg/dL High Risk Performed By: #### L 500.2500, L100.0100, L500.4100 #### [facility] [address] [place], [address] Cholesterol in HDL [Mass/Vol] 64 mg/dL Normal [facility] Comment on above: Order Comment: Comme nts: NPO at [place] prior to lipid panel Result Comment: The drugs N-Acetylcysteine and Metamizole may falsely depress this assay. Reference Range HDL <40 mg/dL Low HDL Cholesterol HDL >or= 60 mg/dL High HDL Cholesterol Performed By: #### L 500.2500, L100.0100, L500.4100 #### [facility] [address] [place], [address] Cholesterol in LDL [Mass/Vol] 105 mg/dL Normal 0-130 [facility] Comment on above: Order Comment: Comme nts: NPO at [place] prior to lipid panel Performed By: #### L 500.2500, L100.0100, L500.4100 #### [facility] [address] [place], [address] Cholesterol in VLDL [Mass/Vol] 22 mg/dL Normal 5-40 [facility] Comment on above: Order Comment: Comme nts: NPO at [place] prior to lipid panel Performed By: #### L 500.2500, L100.0100, L500.4100 #### [facility] [address] [place], [address] Triglyceride [Mass/Vol] 110 mg/dL Normal [facility] Comment on above: Order Comment: Comme nts: NPO at [place] prior to lipid panel Result Comment: The drugs N-Acetylcysteine and Metamizole may falsely depress this assay. Serum Triglycerides Reference Interval Normal <150 mg/dL Borderline high 150 - 199 mg/dL High 200 - 499 mg/dL Very High > or = 500 mg/dL Performed By: #### L 500.2500, L100.0100, L500.4100 #### [facility] [address] [place], [address] Basic Metabolic Profile (BMP )on 03-17-2024 BUN/CRE 5.4 RATIO Low 10-20 [facility] Comment on above: Order Comment: 'TROP ' Serial specimen #1, #2 or #3: 1 Performed By: #### L 100.0100, L500.4050 #### [facility] [address] [place], [address] CA,Total 8.5 mg/dL Normal 8.5-10.1 [facility] Comment on above: Order Comment: 'TROP ' Serial specimen #1, #2 or #3: 1 Performed By: #### L 100.0100, L500.4050 #### [facility] [address] [place], [address] Chloride [Moles/Vol] 96 mmol/L Low 98-107 [facility] Comment on above: Order Comment: 'TROP ' Serial specimen #1, #2 or #3: 1 Performed By: #### L 100.0100, L500.4050 #### [facility] [address] [place], [address] CO2 [Moles/Vol] 31.0 mmol/L Normal 21.0-32.0 [facility] Comment on above: Order Comment: 'TROP ' Serial specimen #1, #2 or #3: 1 Performed By: #### L 100.0100, L500.4050 #### [facility] [address] [place], [address] Creatinine [Mass/Vol] 2.05 mg/dL High 0.55-1.02 [facility] Comment on above: Order Comment: 'TROP ' Serial specimen #1, #2 or #3: 1 Result Comment: The validity of the calculated GFR GFRAA in patients over 70 years has not been determined. Clinical correlation is essential. Performed By: #### L 100.0100, L500.4050 #### [facility] [address] [place], [address] ECRCL 33.59 ml/min Normal [facility] Comment on above: Order Comment: 'TROP ' Serial specimen #1, #2 or #3: 1 Performed By: #### L 100.0100, L500.4050 #### [facility] [address] [place], [address] EST GFR - AA 32 mL/min Low >60 [facility] Comment on above: Order Comment: 'TROP ' Serial specimen #1, #2 or #3: 1 Result Comment: Afri can Dominican GFR Calc Performed By: #### L 100.0100, L500.4050 #### [facility] [address] [place], [address] GAP 8 Normal 5-15 [facility] Comment on above: Order Comment: 'TROP ' Serial specimen #1, #2 or #3: 1 Performed By: #### L 100.0100, L500.4050 #### [facility] [address] [place], [address] GFR/1.73 sq M.predicted among non-blacks MDRD (S/P/Bld) [Vol rate/Area] 26 mL/min/{1.73_m2} Low >60 [facility] Comment on above: Order Comment: 'TROP ' Serial specimen #1, #2 or #3: 1 Result Comment: Non- GFR Calc Performed By: #### L 100.0100, L500.4050 #### [facility] [address] [place], [address] Glucose [Mass/Vol] 278 mg/dL High 74-106 [facility] Comment on above: Order Comment: 'TROP ' Serial specimen #1, #2 or #3: 1 Result Comment: Gluc ose result greater than or equal to 200 mg/dL suggests DIABETES MELLITUS per A.D.A. criteria. Performed By: #### L 100.0100, L500.4050 #### [facility] [address] [place], [address] Potassium [Moles/Vol] 3.6 mmol/L Normal 3.5-5.1 [facility] Comment on above: Order Comment: 'TROP ' Serial specimen #1, #2 or #3: 1 Performed By: #### L 100.0100, L500.4050 #### [facility] [address] [place], [address] Sodium [Moles/Vol] 135 mmol/L Low 136-145 [facility] Comment on above: Order Comment: 'TROP ' Serial specimen #1, #2 or #3: 1 Performed By: #### L 100.0100, L500.4050 #### [facility] [address] [place], [address] Urea nitrogen [Mass/Vol] 11 mg/dL Normal 7-18 [facility] Comment on above: Order Comment: 'TROP ' Serial specimen #1, #2 or #3: 1 Performed By: #### L 100.0100, L500.4050 #### [facility] [address] [place], [address] Bedside Glucoseon 03-17-2024 FINGERSTICK GLU 497 mg/dL Invalid Interpretation Code [address] [place] [address] Comment on above: Result Comment: SONJA GEMENT OF PATIENT CARE PER NURSING PROTOCOL Performed By: #### L 501.080 ####[facility] [id number] [place], [address] FINGERSTICK GLU 248 mg/dL High 74-106 [facility] Comment on above: Result Comment: SONJA GEMENT OF PATIENT CARE PER NURSING PROTOCOL Performed By: #### L 501.080 ####[facility] [address] [place], [address] Brain without Contraston Brain without Contrast [facility] Imaging Services [address] [place] [address] Brain without Contrast MR#: [id number] Acct: [id number] Name: Margareth GONZALEZ Rep #: [id number] : 1965 F 58 From: Sha Rahman MD PCP: Dr. Ignacio Cheatham MD Status: ADM CHRISTA Study: Brain without Contrast Date of Exam: 03/17/24 Exam# [id number] Ordering Dr: Hipolito Shpeard MD -[id number] STUDY: MRI BRAIN WITHOUT CONTRAST REASON [...] Hipolito Shepard MD; Dr. Ignacio Cheatham MD Archival Records Clerk: Signed Normal [facility] CBC W/Diff, Automatedon 03-02 Absolute Lymph 1.71 X10 3/uL Normal 0.83-4.51 [facility] Comment on above: Performed By: #### L 100.0100, L500.4050 #### [facility] [address] [place], [address] Absolute Neut 3.6 X10 3/uL Normal 2.0-7.7 [facility] Comment on above: Performed By: #### L 100.0100, L500.4050 #### [facility] [address] [place], [address] Basophils/100 WBC (Bld) 0.7 % Normal 0-1 [facility] Comment on above: Performed By: #### L 100.0100, L500.4050 #### [facility] [address] [place], [address] Eosinophils/100 WBC (Bld) 2.2 % Normal 0-5 [facility] Comment on above: Performed By: #### L 100.0100, L500.4050 #### [facility] [address] [place], [address] Erythrocyte distribution width (RBC) [Ratio] 12.1 % Normal 11.6-14.6 [facility] Comment on above: Performed By: #### L 100.0100, L500.4050 #### [facility] [address] [place], [address] Hematocrit (Bld) [Volume fraction] 33.5 % Low 37-47 [facility] Comment on above: Performed By: #### L 100.0100, L500.4050 #### [facility] [address] [place], [address] Hemoglobin (Bld) [Mass/Vol] 11.2 g/dL Low 12.0-15.0 [facility] Comment on above: Performed By: #### L 100.0100, L500.4050 #### [facility] [address] [place], [address] IG% 0.300 Normal 0.0-0.9 [facility] Comment on above: Result Comment: IG% - Immature Granulocytes (promyelocytes, myelocytes and metamyelocytes) > 1% indicates that a LEFT SHIFT is Present. Performed By: #### L 100.0100, L500.4050 #### [facility] [address] [place], [address] Lymphocytes/100 WBC (Bld) 28.7 % Normal 19-41 [facility] Comment on above: Performed By: #### L 100.0100, L500.4050 #### [facility] [address] [place], [address] MCH (RBC) [Entitic mass] 31.7 pg Normal 27.0-32.0 [facility] Comment on above: Performed By: #### L 100.0100, L500.4050 #### [facility] [address] [place], [address] MCHC (RBC) [Mass/Vol] 33.4 g/dL Normal 32-36 [facility] Comment on above: Performed By: #### L 100.0100, L500.4050 #### [facility] [address] [place], [address] MCV (RBC) [Entitic vol] 94.9 fL Normal 81-99 [facility] Comment on above: Performed By: #### L 100.0100, L500.4050 #### [facility] [address] [place], [address] Monocytes/100 WBC (Bld) 7.1 % Normal 0-10 [facility] Comment on above: Performed By: #### L 100.0100, L500.4050 #### [facility] [address] [place], [address] Neutrophils/100 WBC (Bld) 61.0 % Normal 47-70 [facility] Comment on above: Performed By: #### L 100.0100, L500.4050 #### [facility] [address] [place], [address] Nucleated RBC (Bld) [#/Vol] 0 10*3/uL Normal 0-5 [facility] Comment on above: Performed By: #### L 100.0100, L500.4050 #### [facility] [address] [place], [address] Platelet mean volume (Bld) [Entitic vol] 9.9 fL Normal 6.2-12.0 [facility] Comment on above: Performed By: #### L 100.0100, L500.4050 #### [facility] [address] [place], [address] Platelets (Bld) [#/Vol] 186 10*3/uL Normal 150-450 [facility] Comment on above: Performed By: #### L 100.0100, L500.4050 #### [facility] [address] [place], [address] RBC (Bld) [#/Vol] 3.53 10*6/uL Low 4.2-5.4 [facility] Comment on above: Performed By: #### L 100.0100, L500.4050 #### [facility] [address] [place], [address] RDW SD 41.7 fl Normal 35.1-43.9 [facility] Comment on above: Performed By: #### L 100.0100, L500.4050 #### [facility] [address] [place], [address] WBC (Bld) [#/Vol] 6.0 10*3/uL Normal 4.4-11.0 [facility] Comment on above: Performed By: #### L 100.0100, L500.4050 #### [facility] [address] [place], [address] CTA Head AND Neck W/ Contras ton 03-17-2024 CTA Head AND Neck W/ Contrast [facility] Imaging Services [address] [place] [address] CTA Head AND Neck W/ Contrast MR#: [id number] Acct: [id number] Name: Margareth GONZALEZ Rep #: [id number] : 1965 F 58 From: Minh Schmidt MD PCP: Dr. Ignacio Cheatham MD Status: REG ER Study: CTA Head AND Neck W/ Contrast Date of Exam: Exam# [id number] Ordering Dr: Neymar Toledo DO -[id number] EXAM: CT ANGIOGRAPHY HEAD AND NECK WITH INTRAVENOUS CONTRAST CLINICAL INDICATION: TIA TECHNIQUE: [place]/head and neck CT angiography protocol [...] Neymar Toledo DO; Dr. Ignacio Cheatham MD Archival Records Clerk: Signed Normal [facility] Chest 1 Viewon 03-17-2024 Chest 1 View [facility] Imaging Services [address] [place], [place] [address] Chest 1 View MR#: [id number] Acct: [id number] Name: Margareth GONZALEZ Rep #: [id number] : 1965 F 58 From: Ángel elliott MD PCP: Dr. Ignacio Cheatham MD Status: REG ER Study: Chest 1 View Date of Exam: 03/17/24 Exam# [id number] Ordering Dr: Neymar Toledo DO -[id number] STUDY: X-RAY CHEST REASON FOR EXAM: [...] Neymar Toledo DO; Dr. Ignacio Cheatham MD Archival Records Clerk: Signed Normal [facility] Echo Completeon 03-17-2024 Echo Complete [facility] [place] [address] Echo Complete 03/18/24 0920 MR#: [id number] Acct: [id number] Name: Margareth GONZALEZ Rep #: [id number] : 1965 58 From: Emerson Saldaña MD Attending Dr: Dr. Branden Banks MD Status: ADM CHRISTA Ordering Dr: Branden Banks MD Date: 03/17/24 Location: [facility] Sex: F C Admitted: 03/17/24 Reason [...] MD Date Dictated: 03/18/24919 Date Transcribed: 03/18/241056 Archival Records Clerk: Signed Normal [facility] Emergency Department Summary on 03-17-2024 Emergency Department Summary [facility] Medical Records Department [address] [place] [address] Emergency Department Summary 03/17/24 MR#: [id number] Acct: [id number] Name: LISAMargareth ARNOLD Rep #: [id number] : 1965 58 From: Neymar Toledo DO PCP: Dr. Ignacio Cheatham MD Status:ADM CHRISTA Location: [address] History of Present Illness Chief Complaint: [...] cramping and that my fibromyalgia is flaring. [facility] Medical History Fracture of fibula, right, closed [...] History (Review (more content not included)... Normal [facility] H AND P Exam - Hospitaliston 03-17-2024 H&P Exam - Hospitalist [facility] Medical Records Department [address] [place] [address] H P Exam - Hospitalist 03/17/24 1538 MR#: [id number] Acct: [id number] Name: Margareth GONZALEZ Rep #: [id number] : 1965 58 From: Cristal Blanchard DO PCP: Dr. Ignacio Cheatham MD Status:ADM CHRISTA Location: [place] [address] HPI - General General Date of Admission: 03/17/24 Date of Service: 03/17/24 Chief Complaint: Left hand numbness MUKESH GONZALEZ, is a 58 F who presented to the emergency department at [facility] on 03/17/2024 with a chief complaint of [...] she be admitted for stroke rule out. [facility] Medical History Fracture of fibula, right, closed [...] calcitriol 0.25 mcg capsule 1.5 mcg [facility] 03/17/24 History [...] #12 TABLETS (more content not included)... Normal [facility] L501.4020on 03-17-2024 TROPONIN-I HS 26 pg/mL Normal 3.0-54.0 [facility] Comment on above: Order Comment: 'TROP ' Serial specimen #1, #2 or #3: 1 Result Comment: Plea se Note: New Test Units and Gender Specific Reference Ranges. For more information see Policy Stat Procedure [place] High Sensitivity Troponin (TNIH) and attachments. Performed By: #### L 100.0100, L500.4050 #### [facility] [address] [place], [address] Partial Thromboplast Timeon 03-17-2024 aPTT Coag (Bld) [Time] 25.0 s Normal 24.1-36.2 [facility] Comment on above: Performed By: #### L 100.0100, L500.4050 #### [facility] [address] [place], [address] Prothrombin Time w/INRon INR Coag (PPP) [Relative time] 0.9 {INR} Normal [facility] Comment on above: Performed By: #### L 100.0100, L500.4050 #### [facility] [address] [place], [address] PT Coag (PPP) [Time] 12.3 s Normal 11.7-14.9 [facility] Comment on above: Performed By: #### L 100.0100, L500.4050 #### [facility] [address] [place], [address] STROKE Brain/Head without Co nton 03-17-2024 STROKE Brain/Head without Cont [facility] Imaging Services [address] [place] [address] STROKE Brain/Head without Cont MR#: [id number] Acct: [id number] Name: Margareth GONZALEZ Rep #: [id number] : 1965 F 58 From: Ángel elliott MD PCP: Dr. Ignacio Cheatham MD Status: REG ER Study: STROKE Brain/Head without Cont Date of Exam: 0 03/17/24 Exam# [id number] Ordering Dr: Neymar Toledo DO ADDENDUM by Dr. Ángel Vasquez MD on 03/17/24 at 1124 -[id number] STUDY: STROKE PROTOCOL CT BRAIN WITHOUT [...] DO; Dr. Ignacio Cheatham MD * Signed ADDENDUM by Dr. [...] DO; Dr. Ignacio Cheatham MD * Signed -[id number] STUDY: STROKE PROTOCOL CT BRAIN WITHOUT [...] , Fax (more content not included)... Normal [facility] 03-04-2024 [facility] Telephone (VASSMD) ---- Margareth GONZALEZ ([id number]) 1965 F Date Time Provider Department 03/04/24 SAIRA JACKSON During your visit today, we recorded the following information about you: Linda Sotelo 03/04/2024 1:48 PM Signed Jenni Castro, Allyssa Hare; Linda Sotelo Ak! Can you assist me with scheduling this? I tried but it needs financial clearance. She needs scheduled in [place] on a M, W, F, d/t dialysis the other days. Thanks! Jenni STERLING Testing Waiting on referral to be authorized, will call when it is. Linda Sotelo 03/22/2024 8:10 AM Signed It is unfortunately still pending in the referrals. Ashley Fraire 03/23/2024 10:46 AM Signed Per our frozen food department manager patient has Medicare A AND B and [...] 1 tablet by mouth once daily. - Brxromep-Lu-Eyz-Fe- FA ( VITAMIN) ORAL Tab Take 1 [...] examination [Z01. (more content not included)... Normal [facility] CNOVon 02-09-2024 CNOV Office Visit (VASSWS) ---- Margareth GONZALEZ ([id number]) 1965 F [place] Date Time Provider Department 02/09/24 11:00 AM SAIRA JACKSONS During your visit today, we recorded the following information about you: Pulse Blood pressure 98/minute 172/84 Saira Jackson, DO 02/26/2024 2:11 PM Signed [facility] [place] DEPARTMENT OF VASCULAR SURGERY OUTPATIENT VISIT DATE [...] Depression Diabetes (HCC) Diarrhea DVT, lower extremity ([facility]) 08/2014 Right leg (6) Esophagitis ESRD (end stage renal disease) ([facility]) 07/03/2022 Facial fracture due to fall ([facility]) ([facility]) Fatigue Fibromyalgia Fracture Fracture of [...] MG UNDER (more content not included)... Normal [facility] 01-21-2024 [facility] Telephone ([facility]) ---- Margareth GONZALEZ ([id number]) 1965 F Date Time Provider Department 01/21/24 IGNACIO CHEATHAM [facility] During your visit today, we recorded the following information about you: Efra Box MA 01/21/2024 2:58 PM Signed Type of form: [email or web address] Form received via walk in When form is completed, Fax form to [facility] Form has been forwarded to Physician [...] As needed. - flash glucose scanning reader ([employer] ([employer] Information and TechnologySTYLE FESTUS 2 READER) Use to check glucose [...] 1 tablet by mouth once daily. - Wjycbohy-Fm-Qhv-Fe- FA ( VITAMIN) ORAL Tab Take 1 [...] D defi (more content not included)... Normal [facility] 01-18-2024 [facility] Telephone (JOSYWS) ---- Margareth GONZALEZ ([id number]) 1965 F Date Time Provider Department 01/18/24 [...] 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] Order(s):CONSULT TO PHARMACY [755884] Order #: [id number]: 1 Prescriptions as of 02/16/2024 - hydrOXYzine [...] As needed. - flash glucose scanning reader ([employer] ([employer] and TechnologySTYLE FESTUS 2 READER) Use to check glucose [...] 1 tablet by mouth once daily. - Nlemnbqb-Ok-Bsp-Fe- FA ( VITAMIN) ORAL Tab Take 1 [...] 04/16/2017 C (more content not included)... Normal [facility] 01-12-2024 [facility] Telephone (FAMWS) ---- Margareth GONZALEZ ([id number]) 1965 F Date Time Provider Department 01/12/24 SHA MYRICK [facility] During your visit today, we recorded the following information about you: Sha Myrick MD 01/12/2024 9:50 PM Signed Let patient know her sleep study shows sleep apnea. Order placed to see sleep med. Elenita Ellison LPN 01/13/2024 9:19 AM Signed Left message to call office. 01/13/2024 9:18 AM. NEHAL Roque Tara, LPN 01/14/2024 5:33 PM Signed MyChart message also sent to patient. Arnold Bocaengra LPN 01/18/2024 9:04 AM Signed Patient returned call and went over results, notes from Dr Myrick with understanding. Assisted with transfer to crew scheduler to get Sleep Med appt set [...] [G47.33] Order(s):CONSULT TO SLEEP MEDICINE - ADULT [1522357] Order #: [id number]: 1 FUTURE Prescriptions as of 01/18/2024 - [...] As needed. - flash glucose scanning reader ([employer]cloud ([employer]) Information and TechnologySTYLE FESTUS 2 READER) Use to check glucose [...] 1 tablet by mouth once daily. - Bkzedfan-Hl-Eos-Fe- FA ( VITAMIN) ORAL Tab Take 1 [...] [R60.9] 09/21/2008 (more content not included)... Normal [facility] POLYSOMNOGRAM (PSG)/HOME SLE EP APNEA TEST (HSAT)on 01-05-2024 POLYSOMNOGRAM (PSG)/HOME SLEEP APNEA TEST (HSAT) [facility] at [address], [address], [place] [address] ; Home Sleep Apnea Test (HSAT) Study Report Name: Margareth GONZALEZ Date of Study: 01/05/2024 [facility]#: [id number] Age: 58 (: 1965) ESS: N/A Neck [...] unattended Type III, minimum of 4 parameters (93938) Procedure: This study was performed using a Type III ambulatory PSG device and was unattended. The patient was instructed on proper use of the device by a registered cardiopulmonary technologist. 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 [facility] Radiology Study observation (narrative) [facility] CNOVon 12-25-2023 CNOV Office Visit (FAMPWS) ---- Margareth GONZALEZ ([id number]) 1965 F [place] Date Time Provider Department [...] use coupon/copay card. Wants to change to [facility] in town. Has [employer] forms to complete [...] two more surgeries. She then went to [facility]. Then she went 12 weeks, no weight bearing. Got out of group home 10/01. Refers that she was put on a ventilator at night. Had a sleep study. Equipment via [employer]. Hx of CASSIE. Not following with sleep [...] Take 81 mg by mouth every morning.) Tuazcscc-Jj-Jvr-Fe- FA ( VITAMIN) ORAL Tab Take 1 [...] runs, sneezing... (more content not included)... Normal [facility] CNOVon 12-21-2023 CNOV Office Visit (AGPOB1) ---- Margareth GONZALEZ ([id number]) 1965 F Date Time Provider Department 12/21/23 [...] Chronic kidney disease Contraceptive management Depression Diabetes ([facility]) Diarrhea DVT, lower extremity ([facility]) 08/2014 Right leg (6) Esophagitis ESRD (end stage renal disease) ([facility]) 07/03/2022 Facial fracture due to fall ([facility]) ([facility]) Fatigue Fibromyalgia Fracture Fracture of shaft of fibula GERD (gastroesophageal reflux disease) HLD (hyperlipidemia) on tricor Hyperlipidemia Hypertension Hypomagnesemia Hypopotassemia IBS (irritable bowel syndrome) Insomnia Intertrigo Knee pain Morbid obesity ([facility]) 03/11/2011 Myalgia Nausea Neck pain [...] 24 Vap (more content not included)... Normal [facility] Large Joint Arthro/Inj: L kn ee jointon 12-21-2023 Dorene Murillo MD 12/30/2023 11:15 AM Large Joint Arthro/Inj: L knee joint Informed Consent Consent Obtained: Verbal [place] Protocol A moment to CARE was completed. [...] the patient voiced understanding of these instructions. [facility] CNOVon 12-11-2023 CNOV Office Visit (FAMPWS) ---- Margareth GONZALEZ ([id number]) 1965 F [place] Date Time Provider Department 12/11/23 11:20 AM TRESA MARCUM During your visit today, we recorded the following information about you: Pulse Respiration Blood pressure Weight 102/minute 16/minute 130/72 85.9 kg Tresa Marcum, PATRICE.BLOCK PAVER 12/11/2023 5:24 PM Signed This is a [...] two more surgeries. She then went to [place]. Then she went 12 weeks, no weight bearing. Got out of group home 10/01. Refers that she was put on a ventilator at night. Had a sleep study. Equipment via [employer]. Hx of CASSIE. Not following with sleep [...] (6) Esophagitis ESRD (end stage renal disease) ([facility]) 07/03/2022 Facial fracture due to fall ([facility]) ([facility]) Fatigue Fibromyalgia Fracture Fracture of [...] mg tabl (more content not included)... Normal [facility] 12-07-2023 [facility] Telephone (FAMPWS) ---- Margareth GONZALEZ ([id number]) 1965 F Date Time Provider Department 12/07/23 TRESA MARCUM During your visit today, we recorded the following information about you: Clare Singh RN 12/07/2023 1:09 PM Signed Pt called in and reports she has been home from the group home for 2 months and has been trying to get in with Dr Cheatham. I got her in with Tresa Marcum NP 12/11/23. Pt reports she had R knee surgery went to the [facility] and got an infection I her knee. She states she had to go back to [facility] to have subsequent surgery. Then Pt states she went to [facility] after that for rehab. Allergies As of [...] at bedtime. - flash glucose scanning reader ([employer] FESTUS 2 READER) Use to check glucose [...] 1 tablet by mouth once daily. - Aaymtfii-Wq-Mwg-Fe- FA ( VITAMIN) ORAL Tab Take 1 [...] Tendonitis [M77. (more content not included)... Normal [facility] Emergency Department Summary on 11-03-2023 Emergency Department Summary [facility] Medical Records Department [address] [place] [address] Emergency Department Summary 11/03/23 MR#: [id number] Acct: [id number] Name: Margareth GONZALEZ Rep #: [id number] : 1965 58 From: Minh Arroyo DO [...] or change in vision at this time. [facility] Medical History Fracture of fibula, right, closed [...] History o (more content not included)... Normal [facility] Brain/Head without Contrasto n 11-02-2023 Brain/Head without Contrast [facility] Imaging Services [address] [place] [address] Brain/Head without Contrast MR#: [id number] Acct: [id number] Name: Margareth GONZALEZ Rep #: [id number] : 1965 F 58 From: Sha Adkins MD PCP: Dr. Ignacio Cheatham MD Status: DEP ER Study: Brain/Head without Contrast Date of Exam: 04/25 Exam# [id number] Ordering Dr: Minh Arroyo DO -[id number] INDICATION: head injury EXAMINATION: CT BRAIN [...] Dr. Ignacio Cheatham MD; Minh Arroyo DO Archival Records Clerk: Signed Normal [facility] Knee 3 Viewson 11-02-2023 Knee 3 Views [facility] Imaging Services [address] [place] [address] Knee 3 Views MR#: [id number] Acct: [id number] Name: GONZALEZMargareth BARRETT Rep #: [id number] : 1965 F 58 From: Sha Adkins MD PCP: Dr. Ignacio Cheatham MD Status: REG ER Study: Knee 3 Views Date of Exam: 11/02/23 Exam# [id number] Ordering Dr: Minh Arroyo DO -[id number] INDICATION: pain EXAMINATION/TECHNIQ UE: X-RAY - [...] 0:05 EDT Reading Location ID and State: [facility] / [place] Tel , Service support , CC: Dr. Ignacio Cheatham MD; Minh Arroyo DO Archival Records Clerk: Signed Normal [facility] Spine Cervical without Contr ason 11-02-2023 Spine Cervical without Contras [facility] Imaging Services [address] [place] [address] Spine Cervical without Contras MR#: [id number] Acct: [id number] Name: Margareth GONZALEZH Rep #: [id number] : 1965 F 58 From: Sha Adkins MD PCP: Dr. Ignacio Cheatham MD Status: [facility] ER Study: Spine Cervical without Contras Date of Exam: 0 11/02/23 Exam# [id number] Ordering Dr: Minh Arroyo DO -[id number] INDICATION: injury EXAMINATION: CT Spine Cervical [...] Dr. Ignacio Cheatham MD; Minh Arroyo DO Archival Records Clerk: Signed Normal [facility] Brain/Head without Contrasto n 10-31-2023 Brain/Head without Contrast [facility] Imaging Services [address] [place] [id number] Brain/Head without Contrast MR#: [id number] Acct: [id number] Name: Margareth GONZALEZ Rep #: [id number] : 1965 F 58 From: Rufino Rosado MD PCP: Dr. Ignacio Cheatham MD Status: [facility] Study: Brain/Head without Contrast Date of Exam: 10/02 03/25 Exam# [id number] Ordering Dr: Sylvester Winston DO -[id number] STUDY: CT BRAIN WITHOUT CONTRAST REASON [...] Sylvester Winston DO; Dr. Ignacio Cheatham MD Archival Records Clerk: Signed Normal [facility] Emergency Department Summary on 10-31-2023 Emergency Department Summary [facility] Medical Records Department [address] [place] [address] Emergency Department Summary 10/31/23 MR#: [id number] Acct: [id number] Name: Margareth GONZALEZ Rep #: [id number] : 1965 58 From: Sylvester Winston DO [...] it better. Patient denies any other injuries. [facility] Medical History Fracture of fibula, right, closed [...] 06/29/23 @ (more content not included)... Normal [facility] Spine Cervical without Contr ason 10-31-2023 Spine Cervical without Contras [facility] Imaging Services [address] [place], [place] [address] Spine Cervical without Contras MR#: [id number] Acct: [id number] Name: Margareth GONZALEZ Rep #: [id number] : 1965 F 58 From: Rufino Rosado MD PCP: Dr. Ignacio Cheatham MD Status: REG ER Study: Spine Cervical without Contras Date of Exam: 0 10/31/23 Exam# [id number] Ordering Dr: Sylvester Winston DO -[id number] STUDY: CT CERVICAL SPINE WITHOUT CONTRAST [...] 8:17 EDT Reading Location ID and State: [address] [place] [address] , Service support , CC: Dr. Sylvester Winston DO; Dr. Ignacio Cheatham MD Archival Records Clerk: Signed Normal [facility] Tibia Fibula 2 Viewson 10-30 Tibia Fibula 2 Views [facility] Imaging Services [address] [place] [id number] Tibia Fibula 2 Views MR#: [id number] Acct: [id number] Name: Margareth GONZALEZ [facility] Rep #: [id number] : 1965 F 58 From: Rufino Rosado MD PCP: Dr. Ignacio Cheatham MD Status: [facility] ER Study: Tibia Fibula 2 Views Date of Exam: 10/31/23 Exam# [id number] Ordering Dr: Sylvester Winston DO [id number] STUDY: X-RAY - RIGHT TIBIA AND [...] Sylvester Winston, ; Dr. Ignacio Cheatham MD Archival Records Clerk: Signed [facility] 09[facility]18[facility]2023 [facility]AG[facility] ---- Margareth GONZALEZ ([id number]) 1965 F Date Time Provider Department 09/18/23 DORENE MURILLO During your visit today, we recorded the following information about you: Valentín Cramera 09/18/2023 3:01 PM Signed Received vm message from Ruthie with [facility]. Stated that patient desires to participate in aquatic therapy and is asking if that is ok. P# [phone], fax [phone]. Patient seen in the office on 09/13 for her right lower leg. Order prepared for Dr. Murillo's review/approval. Nedra Cramer September 18, 2023 2:58 PM Nedra Cramer 09/18/2023 3:09 PM Addendum PC to Ruthie at [facility] and relayed information. She will check [...] 11 - Vomiting BALSAM 115 09/23/2007 BALSAM JUNA 09/10/2022 16 - Unknown BARIUM SULFATE 05/01/2023 [...] 1 tablet by mouth once daily. - Vqilzfyb-Fc-Btv-Fe- FA ( VITAMIN) ORAL Tab Take 1 [...] [B35.1] 06/29 (more content not included)... 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 [facility] RADIOLOGY [facility] Radiology Study observation (narrative) Griselda booker [facility] CNOVon 09-14-2023 CNOV Office Visit (AGPOB1) ---- Margareth GONZALEZ ([id number]) 1965 F [place] Date Time Provider Department [...] extremity. The patient is recovering at a shelter facility and participating in physical therapy. The [...] Chronic kidney disease Contraceptive management Depression Diabetes ([facility]) Diarrhea DVT, lower extremity ([facility]) 08/2014 Right leg (6) Esophagitis ESRD (end stage renal disease) ([facility]) 07/03/2022 Facial fracture due to fall ([facility]) ([facility]) Fatigue Fibromyalgia Fracture Fracture of shaft of fibula GERD (gastroesophageal reflux disease) HLD (hyperlipidemia) on tricor Hyperlipidemia Hypertension Hypomagnesemia Hypopotassemia IBS (irritable bowel syndrome) Insomnia Intertrigo Knee pain Morbid obesity ([facility]) 03/11/2011 Myalgia Nausea Neck pain [...] Quit at (more content not included)... Normal [facility] CNOVon 08-17-2023 CNOV Office Visit ([id number]) ---- Margareth GONZALEZ ([id number]) 1965 F [address] Date Time Provider Department [...] extremity. The patient is recovering at a shelter facility and participating in physical therapy. The [...] Chronic kidney disease Contraceptive management Depression Diabetes ([facility]) Diarrhea DVT, lower extremity ([facility]) 08/2014 Right leg (6) Esophagitis ESRD (end stage renal disease) ([facility]) 07/03/2022 Facial fracture due to fall ([facility]) ([facility]) Fatigue Fibromyalgia Fracture Fracture of [...] at age (more content not included)... Normal [facility] CNDSon 08-07-2023 CNDS HNO ID: [id number] Author: DORENE MURILLO MD Service: Orthopaedic Surgery [...] emergently admitted through the Emergency Department to [facility] on 07/29/2023. Surgery was scheduled and on [...] 29.60 k (more content not included)... Normal [facility] CONSULT PROGon 08-07-2023 CONSULT PROG HNO ID: [id number] Author: FELIX KOO APRN.BLOCK PAVER Service: Wound/Ostomy Author Type: Nurse Practitioner Type: Consult Progress Note Filed: 08/07/2023 10:35 Note Text: WOUND CARE SERVICE PROGRESS MOLDER TRIMMER NOTE SERVICE DATE: 08/07/2023 SERVICE TIME: 0843 [...] who is seen today with Audra Monet, Wound/surveyor geodetic, as a follow up visit to place [...] Chronic kidney disease Contraceptive management Depression Diabetes ([facility]) Diarrhea DVT, lower extremity ([facility]) 08/2014 Right leg (6) Esophagitis ESRD (end stage renal disease) ([facility]) 07/03/2022 Facial fracture due to fall ([facility]) ([facility]) Fatigue Fibromyalgia Fracture Fracture of shaft of fibula GERD (gastroesophageal reflux disease) HLD (hyperlipidemia) on tricor Hyperlipidemia Hypertension Hypomagnesemia Hypopotassemia IBS (irritable bowel syndrome) Insomnia Intertrigo Knee pain Morbid obesity ([facility]) 03/11/2011 Myalgia Nausea Neck pain [...] (ELAVIL) 10 (more content not included)... Normal [facility] XR Knee - right AP and Later atul 07-09-2023 2-view right knee x-rays demonstrate maintained length, alignment and rotation of the proximal tibial nonunion with intact orthopaedic implants. [facility] RADIOLOGY [facility] Radiology Study observation (narrative) [facility] Basophil percentageOrdered B y: Sofía Hill on 06-30-2023 Hemoglobin (Bld) [Mass/Vol] 7.0 g/dL 12.0-15.0 [facility] Basophil percentageOrdered B y: Ismael Gillespie on 06-29-2023 Hemoglobin (Bld) [Mass/Vol] 7.5 g/dL 12.0-15.0 [facility] WBC (Bld) [#/Vol] 5.1 10*3/uL 4.4-11.0 [facility] Determination of erythrocyte mean corpuscular volume (MCV)Ordered By: Ismael Gillespie on 06-29-2023 MCV (RBC) [Entitic vol] 109.5 fL 81-99 [facility] Erythrocyte distribution wid th ratioOrdered By: Ismaelnehemiah Gillespie on 06-29-2023 Erythrocyte distribution width (RBC) [Ratio] 17.3 % 11.6-14.6 [facility] Erythrocyte distribution wid th standard deviationOrdered By: Ismael Gillespie on 06-29-2023 Erythrocyte distribution width (RBC) [Entitic vol] 67.9 fL 35.1-43.9 [facility] Hematocrit Auto (Bld) [Volum e fraction]Ordered By: Ismaelnehemiah Gillespie on 06-29-2023 Hematocrit (Bld) [Volume fraction] 25.3 % 37-47 [facility] Laboratory - Hematology and Cell countsOrdered By: Ismael Gillespie on 06-29-2023 MCH (RBC) [Entitic mass] 32.5 pg 27.0-32.0 [facility] MCHC (RBC) [Mass/Vol] 29.6 g/dL 32-36 [facility] Platelet mean volume (Bld) [Entitic vol] 8.7 fL 6.2-12.0 [facility] Platelets (Bld) [#/Vol] 162 10*3/uL 150-450 [facility] RBC Auto (Bld) [#/Vol]Ordere d By: Ismael Gillespie on 06-29-2023 RBC (Bld) [#/Vol] 2.31 10*6/uL 4.2-5.4 [facility] 36on 06-12-2023 36 Name of Caller: Linda - [facility] Contact Reason for Appointment: BREANNA Villavicencio is requesting that Arnold be seen as soon as possible by Dr. Hassan. Linda states that she faxed over records a few days ago. After checking informed her that office did not receive the records. She is going to refax the documents and states she will call back on Thursday. Office Name: [facility] No Panel Informationon 03-17 IMPRESSION: No radiographic evidence of acute osseous injury Archival Records Clerk: SHAMAR Transcribe Date/Time: Mar 17 2023 12:48P Dictated by : VIDA ROGERS MD This examination was interpreted and the report reviewed and electronically signed by: VIAD ROGERS MD on Mar 17 2023 12:50PM [facility] DIVISION OF RADIOLOGY Radiology Study observation (narrative) [facility] No Panel InformationOrdered By: Ccf Provider on 03-17-2023 [facility] XR Ankle - right AP and Late [...] of the vasculature. DIVISION OF RADIOLOGY Provider, [facility] [place] - 03/17/2023 * * *Final Report* * [...] No radiographic evidence of acute osseous injury Archival Records Clerk: SHAMAR Transcribe Date/Time: Mar 17 2023 12:48P Dictated by : VIDA ROGERS MD This examination was interpreted and the report reviewed and electronically signed by: VIDA ROGERS MD on Mar 17 2023 12:50PM [facility] XR Foot - right AP and Later [...] of the vasculature. DIVISION OF RADIOLOGY Provider, [facility] [place] - 03/17/2023 * * *Final Report* * [...] No radiographic evidence of acute osseous injury Archival Records Clerk: [facility] Transcribe Date/Time: Mar 17 2023 12:48P Dictated by : VIDA ROGERS MD This examination was interpreted and the report reviewed and electronically signed by: VIDA ROGERS MD on Mar 17 2023 12:50PM [facility] Absolute lymphocyte countOrd ered By: Shilpa Leal on 03-04-2023 Lymphocytes Auto (Unsp spec) [#/Vol] 1.82 10*3/uL 0.83-4.51 [facility] Basophil percentageOrdered B y: Shilpa Leal on 03-04-2023 Basophils/100 WBC (Bld) 0.6 % 0-1 [facility] Chloride [Moles/Vol] 103 mmol/L 98-107 [facility] Eosinophils/100 WBC (Bld) 3.7 % 0-5 [facility] Glucose [Mass/Vol] 82 mg/dL 74-106 [facility] Neutrophils (Bld) [#/Vol] 2.6 10*3/uL 2.0-7.7 [facility] Neutrophils/100 WBC (Bld) 51.5 % 47-70 [facility] Potassium [Moles/Vol] 4.7 mmol/L 3.5-5.1 [facility] Sodium [Moles/Vol] 138 mmol/L 136-145 [facility] WBC (Bld) [#/Vol] 5.1 10*3/uL 4.4-11.0 [facility] Blood erythrocytes count (nu mber/volume)Ordered By: Shilpa Leal on 03-04-2023 RBC (Bld) [#/Vol] 2.95 10*6/uL 4.2-5.4 [facility] Blood hemoglobin measurement (mass/volume)Ordered By: Shilpa Leal on 03-04-2023 Hemoglobin (Bld) [Mass/Vol] 9.1 g/dL 12.0-15.0 [facility] Blood lymphocytes/100 leukoc ytesOrdered By: Shilpa Leal on 03-04-2023 Lymphocytes/100 WBC (Bld) 35.9 % 19-41 [facility] Blood monocytes/100 leukocyt esOrdered By: Shilpa Leal on 03-04-2023 Monocytes/100 WBC (Bld) 7.9 % 0-10 [facility] Blood platelet mean volumeOr dered By: Shilpa Leal on 03-04-2023 Platelet mean volume (Bld) [Entitic vol] 8.9 fL 6.2-12.0 [facility] Determination of erythrocyte mean corpuscular volume (MCV)Ordered By: Shilpa Leal on 03-04-2023 MCV (RBC) [Entitic vol] 103.1 fL 81-99 [facility] Hematocrit Auto (Bld) [Volum e fraction]Ordered By: Shilpa Leal on 03-04-2023 Hematocrit (Bld) [Volume fraction] 30.4 % 37-47 [facility] Laboratory - Chemistry and C hemistry - challengeOrdered By: Shilpa Leal on 03-04-2023 CO2 [Moles/Vol] 31.0 mmol/L 21.0-32.0 [facility] Urea nitrogen/Creatinine [Mass ratio] 5.1 mg/mg 10-20 [facility] Laboratory - Hematology and Cell countsOrdered By: Shilpa Leal on 03-04-2023 Erythrocyte distribution width (RBC) [Entitic vol] 58.8 fL 35.1-43.9 [facility] Erythrocyte distribution width (RBC) [Ratio] 15.6 % 11.6-14.6 [facility] Immature granulocytes/100 WBC (Bld) 0.400 % 0.0-0.9 [facility] Comment on above: IG% - Immature Granu locytes (promyelocytes, myelocytes and metamyelocytes) > 1% indicates that a LEFT SHIFT is Present. MCH (RBC) [Entitic mass] 30.8 pg 27.0-32.0 [facility] Nucleated RBC/100 WBC (Bld) [Ratio] 0 % 0-5 [facility] MCHC Auto (RBC) [Mass/Vol]Or dered By: Shilpa eLal on 03-04-2023 MCHC (RBC) [Mass/Vol] 29.9 g/dL 32-36 [facility] No Panel InformationOrdered By: Shilpa Leal on 03-04-2023 Estimated GFR (MDRD) Amer 21 mL/min >60 [facility] Comment on above: GFR Calc Estimated GFR (MDRD) Non-Af Amer 17 mL/min >60 [facility] Comment on above: Non- GFR Calc Platelets bldOrdered By: Bryan Leal on 03-04-2023 Platelets (Bld) [#/Vol] 170 10*3/uL 150-450 [facility] Serum or plasma calcium joya urement (mass/volume)Ordered By: Shilpa Leal on 03-04-2023 Calcium [Mass/Vol] 8.9 mg/dL 8.5-10.1 [facility] Serum or plasma creatinine m easurement (mass/volume)Ordered By: Shilpa Leal on 03-04-2023 Creatinine [Mass/Vol] 2.97 mg/dL 0.55-1.02 [facility] Comment on above: The validity of the calculated GFR & GFRAA in patients over 70 years has not been determined. Clinical correlation is essential. Serum or plasma urea nitroge n measurement (mass/volume)Ordered By: Shilpa Leal on 03-04-2023 Urea nitrogen [Mass/Vol] 15 mg/dL 7-18 [facility] Thin prep Papanicolaou smear with manual screeningOrdered By: Shilpa Leal on 03-04-2023 Thin prep Papanicolaou smear with manual screening 4 5-15 [facility] Absolute lymphocyte countOrd ered By: Shilpa Leal on 02-25-2023 Lymphocytes Auto (Unsp spec) [#/Vol] 1.72 10*3/uL 0.83-4.51 [facility] Basophil percentageOrdered B y: Shilpa Leal on 02-25-2023 Basophils/100 WBC (Bld) 0.6 % 0-1 [facility] Chloride [Moles/Vol] 101 mmol/L 98-107 [facility] Eosinophils/100 WBC (Bld) 4.6 % 0-5 [facility] Glucose [Mass/Vol] 94 mg/dL 74-106 [facility] Neutrophils (Bld) [#/Vol] 2.3 10*3/uL 2.0-7.7 [facility] Neutrophils/100 WBC (Bld) 48.5 % 47-70 [facility] Potassium [Moles/Vol] 3.9 mmol/L 3.5-5.1 [facility] Sodium [Moles/Vol] 137 mmol/L 136-145 [facility] WBC (Bld) [#/Vol] 4.8 10*3/uL 4.4-11.0 [facility] Blood erythrocytes count (nu mber/volume)Ordered By: Shilpa Leal on 02-25-2023 RBC (Bld) [#/Vol] 2.75 10*6/uL 4.2-5.4 [facility] Blood hemoglobin measurement (mass/volume)Ordered By: Shilpa Leal on 02-25-2023 Hemoglobin (Bld) [Mass/Vol] 8.6 g/dL 12.0-15.0 [facility] Blood lymphocytes/100 leukoc ytesOrdered By: Shilpa Leal on 02-25-2023 Lymphocytes/100 WBC (Bld) 36.2 % 19-41 [facility] Blood monocytes/100 leukocyt esOrdered By: Shilpa Leal on 02-25-2023 Monocytes/100 WBC (Bld) 9.7 % 0-10 [facility] Blood platelet mean volumeOr dered By: Shilpa Leal on 02-25-2023 Platelet mean volume (Bld) [Entitic vol] 9.0 fL 6.2-12.0 [facility] Determination of erythrocyte mean corpuscular volume (MCV)Ordered By: Shilpa Leal on 02-25-2023 MCV (RBC) [Entitic vol] 103.6 fL 81-99 [facility] Hematocrit Auto (Bld) [Volum e fraction]Ordered By: Shilpa Leal on 02-25-2023 Hematocrit (Bld) [Volume fraction] 28.5 % 37-47 [facility] Laboratory - Chemistry and C hemistry - challengeOrdered By: Shilpa Leal on 02-25-2023 CO2 [Moles/Vol] 33.0 mmol/L 21.0-32.0 [facility] Urea nitrogen/Creatinine [Mass ratio] 5.1 mg/mg 10-20 [facility] Laboratory - Hematology and Cell countsOrdered By: Shilpa Leal on 02-25-2023 Erythrocyte distribution width (RBC) [Entitic vol] 57.9 fL 35.1-43.9 [facility] Erythrocyte distribution width (RBC) [Ratio] 15.7 % 11.6-14.6 [facility] Immature granulocytes/100 WBC (Bld) 0.400 % 0.0-0.9 [facility] Comment on above: IG% - Immature Granu locytes (promyelocytes, myelocytes and metamyelocytes) > 1% indicates that a LEFT SHIFT is Present. MCH (RBC) [Entitic mass] 31.3 pg 27.0-32.0 [facility] Nucleated RBC/100 WBC (Bld) [Ratio] 0 % 0-5 [facility] MCHC Auto (RBC) [Mass/Vol]Or dered By: Shilpa Leal on 02-25-2023 MCHC (RBC) [Mass/Vol] 30.2 g/dL 32-36 [facility] No Panel InformationOrdered By: Shilpa Leal on 02-25-2023 Estimated GFR (MDRD) Amer 21 mL/min >60 [facility] Comment on above: GFR Calc Estimated GFR (MDRD) Non-Af Amer 17 mL/min >60 [facility] Comment on above: Non- GFR Calc Platelets bldOrdered By: Bryan Leal on 02-25-2023 Platelets (Bld) [#/Vol] 197 10*3/uL 150-450 [facility] Serum or plasma calcium joya urement (mass/volume)Ordered By: Shilpa Leal on 02-25-2023 Calcium [Mass/Vol] 8.7 mg/dL 8.5-10.1 [facility] Serum or plasma creatinine m easurement (mass/volume)Ordered By: Shilpa Leal on 02-25-2023 Creatinine [Mass/Vol] 2.95 mg/dL 0.55-1.02 [facility] Comment on above: The validity of the calculated GFR & GFRAA in patients over 70 years has not been determined. Clinical correlation is essential. Serum or plasma urea nitroge n measurement (mass/volume)Ordered By: Shilpa Leal on 02-25-2023 Urea nitrogen [Mass/Vol] 15 mg/dL 7-18 [facility] Thin prep Papanicolaou smear with manual screeningOrdered By: Shilpa Leal on 02-25-2023 Thin prep Papanicolaou smear with manual screening 3 5-15 [facility] Absolute lymphocyte countOrd ered By: Shilpa Leal on 02-18-2023 Lymphocytes Auto (Unsp spec) [#/Vol] 1.71 10*3/uL 0.83-4.51 [facility] Basophil percentageOrdered B y: Shilpa Leal on 02-18-2023 Basophils/100 WBC (Bld) 0.5 % 0-1 [facility] Chloride [Moles/Vol] 103 mmol/L 98-107 [facility] Eosinophils/100 WBC (Bld) 3.0 % 0-5 [facility] Glucose [Mass/Vol] 147 mg/dL 74-106 [facility] Comment on above: Fasting Glucose resu lt greater than or equal to 126 mg/dL suggests DIABETES MELLITUS per A.D.A. criteria. Neutrophils (Bld) [#/Vol] 1.9 10*3/uL 2.0-7.7 [facility] Neutrophils/100 WBC (Bld) 44.5 % 47-70 [facility] Potassium [Moles/Vol] 4.2 mmol/L 3.5-5.1 [facility] Sodium [Moles/Vol] 139 mmol/L 136-145 [facility] WBC (Bld) [#/Vol] 4.3 10*3/uL 4.4-11.0 [facility] Blood erythrocytes count (nu mber/volume)Ordered By: Shilpa Leal on 02-18-2023 RBC (Bld) [#/Vol] 2.46 10*6/uL 4.2-5.4 [facility] Blood hemoglobin measurement (mass/volume)Ordered By: Shilpa Leal on 02-18-2023 Hemoglobin (Bld) [Mass/Vol] 7.5 g/dL 12.0-15.0 [facility] Blood lymphocytes/100 leukoc ytesOrdered By: Shilpa Leal on 02-18-2023 Lymphocytes/100 WBC (Bld) 40.0 % 19-41 [facility] Blood monocytes/100 leukocyt esOrdered By: Shilpa Leal on 02-18-2023 Monocytes/100 WBC (Bld) 11.5 % 0-10 [facility] Blood platelet mean volumeOr dered By: Shilpa Leal on 02-18-2023 Platelet mean volume (Bld) [Entitic vol] 8.8 fL 6.2-12.0 [facility] Determination of erythrocyte mean corpuscular volume (MCV)Ordered By: Shilpa Leal on 02-18-2023 MCV (RBC) [Entitic vol] 102.8 fL 81-99 [facility] Hematocrit Auto (Bld) [Volum e fraction]Ordered By: Shilpa Leal on 02-18-2023 Hematocrit (Bld) [Volume fraction] 25.3 % 37-47 [facility] Laboratory - Chemistry and C hemistry - challengeOrdered By: Shilpa Leal on 02-18-2023 CO2 [Moles/Vol] 31.0 mmol/L 21.0-32.0 [facility] Urea nitrogen/Creatinine [Mass ratio] 5.0 mg/mg 10-20 [facility] Laboratory - Hematology and Cell countsOrdered By: Shilpa Leal on 02-18-2023 Erythrocyte distribution width (RBC) [Entitic vol] 62.4 fL 35.1-43.9 [facility] Erythrocyte distribution width (RBC) [Ratio] 16.5 % 11.6-14.6 [facility] Immature granulocytes/100 WBC (Bld) 0.500 % 0.0-0.9 [facility] Comment on above: IG% - Immature Granu locytes (promyelocytes, myelocytes and metamyelocytes) > 1% indicates that a LEFT SHIFT is Present. MCH (RBC) [Entitic mass] 30.5 pg 27.0-32.0 [facility] Nucleated RBC/100 WBC (Bld) [Ratio] 0 % 0-5 [facility] MCHC Auto (RBC) [Mass/Vol]Or dered By: Shilpa Leal on 02-18-2023 MCHC (RBC) [Mass/Vol] 29.6 g/dL 32-36 [facility] No Panel InformationOrdered By: Shilpa Leal on 02-18-2023 Estimated GFR (MDRD) Amer 19 mL/min >60 [facility] Comment on above: GFR Calc Estimated GFR (MDRD) Non-Af Amer 16 mL/min >60 [facility] Comment on above: Non- GFR Calc Platelets bldOrdered By: Bryan Leal on 02-18-2023 Platelets (Bld) [#/Vol] 175 10*3/uL 150-450 [facility] Serum or plasma calcium joya urement (mass/volume)Ordered By: Shilpa Leal on 02-18-2023 Calcium [Mass/Vol] 8.0 mg/dL 8.5-10.1 [facility] Serum or plasma creatinine m easurement (mass/volume)Ordered By: Shilpa Leal on 02-18-2023 Creatinine [Mass/Vol] 3.17 mg/dL 0.55-1.02 [facility] Comment on above: The validity of the calculated GFR & GFRAA in patients over 70 years has not been determined. Clinical correlation is essential. Serum or plasma urea nitroge n measurement (mass/volume)Ordered By: Shilpa Leal on 02-18-2023 Urea nitrogen [Mass/Vol] 16 mg/dL 7-18 [facility] Thin prep Papanicolaou smear with manual screeningOrdered By: [facility] Petersenvin[facility] on 02-18-2023 Thin prep Papanicolaou smear with manual screening 5 5-15 [facility] Absolute lymphocyte countOrd ered By: Sophypemaquidmell Leal on 02-11-2023 Lymphocytes Auto (Unsp spec) [#/Vol] 1.47 10*3/uL 0.83-4.51 [facility] Basophil percentageOrdered B y: Shilpa Leal on 02-11-2023 Basophils/100 WBC (Bld) 1.0 % 0-1 [facility] Chloride [Moles/Vol] 100 mmol/L 98-107 [facility] Eosinophils/100 WBC (Bld) 4.1 % 0-5 [facility] Glucose [Mass/Vol] 105 mg/dL 74-106 [facility] Comment on above: Fasting Glucose resu lt from 100 to 125 mg/dL suggests IMPAIRED HOMEOSTASIS per A.D.A. criteria. Neutrophils (Bld) [#/Vol] 1.7 10*3/uL 2.0-7.7 [facility] Neutrophils/100 WBC (Bld) 44.9 % 47-70 [facility] Potassium [Moles/Vol] 3.9 mmol/L 3.5-5.1 [facility] Sodium [Moles/Vol] 138 mmol/L 136-145 [facility] WBC (Bld) [#/Vol] 3.9 10*3/uL 4.4-11.0 [facility] Blood erythrocytes count (nu mber/volume)Ordered By: Sihlpa Leal on 02-11-2023 RBC (Bld) [#/Vol] 2.31 10*6/uL 4.2-5.4 [facility] Blood hemoglobin measurement (mass/volume)Ordered By: Lisacarlosrocíomell Leal on 02-11-2023 Hemoglobin (Bld) [Mass/Vol] 7.1 g/dL 12.0-15.0 [facility] Blood lymphocytes/100 leukoc ytesOrdered By: Lisamayela Leal on 02-11-2023 Lymphocytes/100 WBC (Bld) 38.1 % 19-41 [facility] Blood monocytes/100 leukocyt esOrdered By: carlosbronwyn Leal on 02-11-2023 Monocytes/100 WBC (Bld) 11.4 % 0-10 [facility] Blood platelet mean volumeOr dered By: Lisamayela Leal on 02-11-2023 Platelet mean volume (Bld) [Entitic vol] 9.0 fL 6.2-12.0 [facility] Determination of erythrocyte mean corpuscular volume (MCV)Ordered By: Shilpa Leal on 02-11-2023 MCV (RBC) [Entitic vol] 103.0 fL 81-99 [facility] Hematocrit Auto (Bld) [Volum e fraction]Ordered By: Lisacarlosrocíomell Leal on 02-11-2023 Hematocrit (Bld) [Volume fraction] 23.8 % 37-47 [facility] Laboratory - Chemistry and C hemistry - challengeOrdered By: Lisamayela Leal on 02-11-2023 CO2 [Moles/Vol] 31.0 mmol/L 21.0-32.0 [facility] Urea nitrogen/Creatinine [Mass ratio] 3.7 mg/mg 10-20 [facility] Laboratory - Hematology and Cell countsOrdered By: Shilpa Leal on 02-11-2023 Erythrocyte distribution width (RBC) [Entitic vol] 58.1 fL 35.1-43.9 [facility] Erythrocyte distribution width (RBC) [Ratio] 15.9 % 11.6-14.6 [facility] Immature granulocytes/100 WBC (Bld) 0.500 % 0.0-0.9 [facility] Comment on above: IG% - Immature Granu locytes (promyelocytes, myelocytes and metamyelocytes) > 1% indicates that a LEFT SHIFT is Present. MCH (RBC) [Entitic mass] 30.7 pg 27.0-32.0 [facility] Nucleated RBC/100 WBC (Bld) [Ratio] 0 % 0-5 [facility] MCHC Auto (RBC) [Mass/Vol]Or dered By: Shilpa Leal on 02-11-2023 MCHC (RBC) [Mass/Vol] 29.8 g/dL 32-36 [facility] No Panel InformationOrdered By: Shilpa Leal on 02-11-2023 Estimated GFR (MDRD) Amer 21 mL/min >60 [facility] Comment on above: GFR Calc Estimated GFR (MDRD) Non-Af Amer 17 mL/min >60 [facility] Comment on above: Non- GFR Calc Platelets bldOrdered By: Bryan Leal on 02-11-2023 Platelets (Bld) [#/Vol] 243 10*3/uL 150-450 [facility] Serum or plasma calcium joya urement (mass/volume)Ordered By: Shilpa Leal on 02-11-2023 Calcium [Mass/Vol] 8.3 mg/dL 8.5-10.1 [facility] Serum or plasma creatinine m easurement (mass/volume)Ordered By: Shilpa Leal on 02-11-2023 Creatinine [Mass/Vol] 2.99 mg/dL 0.55-1.02 [facility] Comment on above: The validity of the calculated GFR & GFRAA in patients over 70 years has not been determined. Clinical correlation is essential. Serum or plasma urea nitroge n measurement (mass/volume)Ordered By: Shilpa Leal on 02-11-2023 Urea nitrogen [Mass/Vol] 11 mg/dL 7-18 [facility] Thin prep Papanicolaou smear with manual screeningOrdered By: Shilpa Leal on 02-11-2023 Thin prep Papanicolaou smear with manual screening 7 5-15 [facility] Bilirubin Test strip Ql (U)O rdered By: Shilpa Leal on 02-09-2023 Bilirubin Ql (U) Negative Negative [facility] Culture, urineOrdered By: Lisa Leal on 02-09-2023 Bacteria identified Cx Nom (U) Klebsiella pneumoniae sp pneum [facility] Ketones Test strip Ql (U)Ord ered By: Shilpa Leal on 02-09-2023 Ketones Ql (U) Negative Negative [facility] [facility] Nitrite Test strip Ql (U)Ord ered By: Shilpa Leal on 02-09-2023 Nitrite Ql (U) Negative Negative [facility] Protein Test strip Ql (U)Ord ered By: Shilpa Leal on 02-09-2023 Protein Ql (U) 100 mg/dl Negative [facility] Urine blood detectionOrdered By: Shilpa Leal on 02-09-2023 RBC Ql (U) 25 /ul Negative [facility] Urine clarityOrdered By: Bryan Leal on 02-09-2023 Clarity (U) Sl. Cloudy Clear [facility] Urine color determinationOrd ered By: Shilpa Leal on 02-09-2023 Color (U) Yellow Yellow [facility] Urine glucose detectionOrder ed By: Shilpa Leal on 02-09-2023 Glucose Ql (U) Normal mg/dl Normal [facility] Urine leukocyte esterase det ection by dipstickOrdered By: Shilpa Leal on 02-09-2023 Leukocyte esterase Test strip Ql (U) 500 /ul Negative [facility] Urine pHOrdered By: Ethan Leal on 02-09-2023 pH (U) 9.0 [pH] 5.0 - 8.0 [facility] Urine specific gravity measu rementOrdered By: Shilpa Leal on 02-09-2023 Specific gravity (U) [Rel density] 1.015 1.002-1.030 [facility] Urobilinogen Auto test strip Ql (U)Ordered By: Shilpa Leal on 02-09-2023 Urobilinogen Ql (U) Normal mg/dl Normal [facility] Absolute lymphocyte countOrd ered By: Neymar Toledo on 02-04-2023 Lymphocytes Auto (Unsp spec) [#/Vol] 1.39 10*3/uL 0.83-4.51 [facility] Absolute lymphocyte countOrd ered By: Shilpa Leal on 02-04-2023 Lymphocytes Auto (Unsp spec) [#/Vol] 1.86 10*3/uL 0.83-4.51 [facility] Basophil percentageOrdered B y: Neymar Toledo on 02-04-2023 Basophils/100 WBC (Bld) 0.7 % 0-1 [facility] Chloride [Moles/Vol] 98 mmol/L 98-107 [facility] Eosinophils/100 WBC (Bld) 2.4 % 0-5 [facility] Glucose [Mass/Vol] 310 mg/dL 74-106 [facility] Comment on above: Glucose result great er than or equal to 200 mg/dLsuggests DIABETES MELLITUS per A.D.A. criteria. Neutrophils (Bld) [#/Vol] 4.8 10*3/uL 2.0-7.7 [facility] Neutrophils/100 WBC (Bld) 69.0 % 47-70 [facility] Potassium [Moles/Vol] 3.9 mmol/L 3.5-5.1 [facility] Sodium [Moles/Vol] 136 mmol/L 136-145 [facility] WBC (Bld) [#/Vol] 7.0 10*3/uL 4.4-11.0 [facility] Basophil percentageOrdered B y: Shilpa Leal on 02-04-2023 Basophils/100 WBC (Bld) 0.7 % 0-1 [facility] Bilirubin [Mass/Vol] 0.40 mg/dL 0.20-1.00 [facility] Comment on above: For patients on eltr ombopag therapy, use of Dimension [place] TBIL is not recommended. Chloride [Moles/Vol] 100 mmol/L 98-107 [facility] Eosinophils/100 WBC (Bld) 4.2 % 0-5 [facility] Glucose [Mass/Vol] 107 mg/dL 74-106 [facility] Comment on above: Fasting Glucose resu lt from 100 to 125 mg/dL suggests IMPAIRED HOMEOSTASIS per A.D.A. criteria. Neutrophils (Bld) [#/Vol] 3.3 10*3/uL 2.0-7.7 [facility] Neutrophils/100 WBC (Bld) 53.7 % 47-70 [facility] Potassium [Moles/Vol] 3.8 mmol/L 3.5-5.1 [facility] Protein [Mass/Vol] 5.1 g/dL 6.4-8.2 [facility] Sodium [Moles/Vol] 137 mmol/L 136-145 [facility] WBC (Bld) [#/Vol] 6.2 10*3/uL 4.4-11.0 [facility] Blood erythrocytes count (nu mber/volume)Ordered By: Neymar Toledo on 02-04-2023 RBC (Bld) [#/Vol] 2.46 10*6/uL 4.2-5.4 [facility] Blood erythrocytes count (nu mber/volume)Ordered By: Shilpa Leal on 02-04-2023 RBC (Bld) [#/Vol] 2.29 10*6/uL 4.2-5.4 [facility] Blood hemoglobin measurement (mass/volume)Ordered By: Neymar Toledo on 02-04-2023 Hemoglobin (Bld) [Mass/Vol] 7.3 g/dL 12.0-15.0 [facility] Blood hemoglobin measurement (mass/volume)Ordered By: Shilpa Leal on 02-04-2023 Hemoglobin (Bld) [Mass/Vol] 6.9 g/dL 12.0-15.0 [facility] Blood lymphocytes/100 leukoc ytesOrdered By: Neymar Toledo on 02-04-2023 Lymphocytes/100 WBC (Bld) 19.9 % 19- [facility] Blood lymphocytes/100 leukoc ytesOrdered By: Shilpa Leal on 02-04-2023 Lymphocytes/100 WBC (Bld) 30.2 % - [facility] Blood monocytes/100 leukocyt esOrdered By: Neymar Toledo on 02-04-2023 Monocytes/100 WBC (Bld) 6.6 % 0-10 [facility] Blood monocytes/100 leukocyt esOrdered By: Shilpa Leal on 02-04-2023 Monocytes/100 WBC (Bld) 9.6 % 0-10 [facility] Blood platelet mean volumeOr dered By: Neymar Toledo on 02-04-2023 Platelet mean volume (Bld) [Entitic vol] 8.6 fL 6.2-12.0 [facility] Blood platelet mean volumeOr dered By: Shilpa Leal on 02-04-2023 Platelet mean volume (Bld) [Entitic vol] 9.0 fL 6.2-12.0 [facility] Determination of erythrocyte mean corpuscular volume (MCV)Ordered By: Neymar Toledo on 02-04-2023 MCV (RBC) [Entitic vol] 101.2 fL 81-99 [facility] Determination of erythrocyte mean corpuscular volume (MCV)Ordered By: Shilpa Leal on 02-04-2023 MCV (RBC) [Entitic vol] 99.6 fL 81-99 [facility] Hematocrit Auto (Bld) [Volum e fraction]Ordered By: Neymar Toledo on 02-04-2023 Hematocrit (Bld) [Volume fraction] 24.9 % 37-47 [facility] Hematocrit Auto (Bld) [Volum e fraction]Ordered By: Shilpa Leal on 02-04-2023 Hematocrit (Bld) [Volume fraction] 22.8 % 37-47 [facility] Laboratory - Chemistry and C hemistry - challengeOrdered By: Neymar Toledo on 02-04-2023 CO2 [Moles/Vol] 30.0 mmol/L 21.0-32.0 [facility] Urea nitrogen/Creatinine [Mass ratio] 5.2 mg/mg 10-20 [facility] Laboratory - Chemistry and C hemistry - challengeOrdered By: Shilpa Leal on 02-04-2023 ALP [Catalytic activity/Vol] 115 U/L 45-117 [facility] ALT [Catalytic activity/Vol] 11 U/L 13-56 [facility] CO2 [Moles/Vol] 34.0 mmol/L 21.0-32.0 [facility] Globulin (S) [Mass/Vol] 3.2 g/dL 2.2-4.2 [facility] Urea nitrogen/Creatinine [Mass ratio] 5.2 mg/mg 10- [facility] Laboratory - Hematology and Cell countsOrdered By: Neymar Toledo on 02-04-2023 Erythrocyte distribution width (RBC) [Entitic vol] 53.5 fL 35.1-43.9 [facility] Erythrocyte distribution width (RBC) [Ratio] 15.2 % 11.6-14.6 [facility] Immature granulocytes/100 WBC (Bld) 1.400 % 0.0-0.9 [facility] Comment on above: IG% - Immature Granu locytes (promyelocytes, myelocytes and metamyelocytes) > 1% indicates that a LEFT SHIFT is Present. MCH (RBC) [Entitic mass] 29.7 pg 27.0-32.0 [facility] Nucleated RBC/100 WBC (Bld) [Ratio] 0 % 0-5 [facility] Laboratory - Hematology and Cell countsOrdered By: Shilpa Leal on 02-04-2023 Erythrocyte distribution width (RBC) [Entitic vol] 53.8 fL 35.1-43.9 [facility] Erythrocyte distribution width (RBC) [Ratio] 15.4 % 11.6-14.6 [facility] Immature granulocytes/100 WBC (Bld) 1.600 % 0.0-0.9 [facility] Comment on above: IG% - Immature Granu locytes (promyelocytes, myelocytes and metamyelocytes) > 1% indicates that a LEFT SHIFT is Present. MCH (RBC) [Entitic mass] 30.1 pg 27.0-32.0 [facility] Nucleated RBC/100 WBC (Bld) [Ratio] 0 % 0- [facility] MCHC Auto (RBC) [Mass/Vol]Or dered By: Neymar Toledo on 02-04-2023 MCHC (RBC) [Mass/Vol] 29.3 g/dL [facility] MCHC Auto (RBC) [Mass/Vol]Or dered By: Shilpa Leal on 02-04-2023 MCHC (RBC) [Mass/Vol] 30.3 g/dL [facility] No Panel InformationOrdered By: Neymar Toledo on 02-04-2023 Estimated Creatinine Clearance Calc 19.21 ml/min [facility] Estimated GFR (MDRD) Amer 19 mL/min >60 [facility] Comment on above: GFR Calc Estimated GFR (MDRD) Non-Af Amer 16 mL/min >60 [facility] Comment on above: Non- GFR Calc No Panel InformationOrdered By: Shilpa Leal on 02-04-2023 Estimated GFR (MDRD) Amer 21 mL/min >60 [facility] Comment on above: GFR Calc Estimated GFR (MDRD) Non-Af Amer 18 mL/min >60 [facility] Comment on above: Non- GFR Calc Platelets bldOrdered By: Bay Toledo on 02-04-2023 Platelets (Bld) [#/Vol] 247 10*3/uL 150-450 [facility] Platelets bldOrdered By: Bryan Leal on 02-04-2023 Platelets (Bld) [#/Vol] 265 10*3/uL 150-450 [facility] Serum or plasma albumin joya urement (mass/volume)Ordered By: Shilpa Leal on 02-04-2023 Albumin [Mass/Vol] 1.9 g/dL 3.2-5.0 [facility] Serum or plasma albumin/glob ulin mass ratioOrdered By: Shilpa Leal on 02-04-2023 Albumin/Globulin [Mass ratio] 0.6 {ratio} 0.9-2.4 [facility] Serum or plasma calcium joya urement (mass/volume)Ordered By: Neymar Toledo on 02-04-2023 Calcium [Mass/Vol] 7.9 mg/dL 8.5-10.1 [facility] Serum or plasma calcium joya urement (mass/volume)Ordered By: Shilpa Leal on 02-04-2023 Calcium [Mass/Vol] 8.3 mg/dL 8.5-10.1 [facility] Serum or plasma creatinine m easurement (mass/volume)Ordered By: Neymar Toledo on 02-04-2023 Creatinine [Mass/Vol] 3.26 mg/dL 0.55-1.02 [facility] Comment on above: The validity of the calculated GFR & GFRAA in patients over 70 years has not been determined. Clinical correlation is essential. Serum or plasma creatinine m easurement (mass/volume)Ordered By: Shilpa Leal on 02-04-2023 Creatinine [Mass/Vol] 2.91 mg/dL 0.55-1.02 [facility] Comment on above: The validity of the calculated GFR & GFRAA in patients over 70 years has not been determined. Clinical correlation is essential. Serum or plasma urea nitroge n measurement (mass/volume)Ordered By: Neymar Toledo on 02-04-2023 Urea nitrogen [Mass/Vol] 17 mg/dL 09-16 [facility] Serum or plasma urea nitroge n measurement (mass/volume)Ordered By: Shilpa Leal on 02-04-2023 Urea nitrogen [Mass/Vol] 15 mg/dL 7-18 [facility] Thin prep Papanicolaou smear with manual screeningOrdered By: Neymar Toledo on 02-04-2023 Thin prep Papanicolaou smear with manual screening 8 5-15 [facility] Thin prep Papanicolaou smear with manual screeningOrdered By: Shilpa Leal on 02-04-2023 Thin prep Papanicolaou smear with manual screening 15 U/L 15-37 [facility] Thin prep Papanicolaou smear with manual screening 3 5-15 [facility] COVID-19 virus antigen assay Ordered By: Carolina Caba on 01-29-2023 SARS-CoV-2 (COVID-19) Ag IA.rapid Ql (Resp) [facility] Glucose Glucometer (BldC) [M ass/Vol]Ordered By: Carolina Caba on 01-29-2023 Glucose [Mass/Vol] 153 mg/dL 74-106 [facility] Comment on above: MANAGEMENT OF PATIEN T CARE PER NURSING PROTOCOL Absolute lymphocyte countOrd ered By: Branden Banks on 01-28-2023 Lymphocytes Auto (Unsp spec) [#/Vol] 1.96 10*3/uL 0.83-4.51 [facility] Basophil percentageOrdered B y: Branden Banks on 01-28-2023 Basophils/100 WBC (Bld) 0.8 % 0-1 [facility] Eosinophils/100 WBC (Bld) 5.0 % 0-5 [facility] Neutrophils (Bld) [#/Vol] 5.2 10*3/uL 2.0-7.7 [facility] Neutrophils/100 WBC (Bld) 59.6 % 47-70 [facility] WBC (Bld) [#/Vol] 8.7 10*3/uL 4.4-11.0 [facility] Blood erythrocytes count (nu mber/volume)Ordered By: Branden Banks on 01-28-2023 RBC (Bld) [#/Vol] 2.54 10*6/uL 4.2-5.4 [facility] Blood hemoglobin measurement (mass/volume)Ordered By: Branden Banks on 01-28-2023 Hemoglobin (Bld) [Mass/Vol] 7.6 g/dL 12.0-15.0 [facility] Blood lymphocytes/100 leukoc ytesOrdered By: Branden Banks on 01-28-2023 Lymphocytes/100 WBC (Bld) 22.5 % 19-41 [facility] Blood monocytes/100 leukocyt esOrdered By: Branden Banks on 01-28-2023 Monocytes/100 WBC (Bld) 9.6 % 0-10 [facility] Blood platelet mean volumeOr dered By: Branden Banks on 01-28-2023 Platelet mean volume (Bld) [Entitic vol] 8.9 fL 6.2-12.0 [facility] Determination of erythrocyte mean corpuscular volume (MCV)Ordered By: Branden Banks on 01-28-2023 MCV (RBC) [Entitic vol] 100.0 fL 81-99 [facility] Hematocrit Auto (Bld) [Volum e fraction]Ordered By: Branden Banks on 01-28-2023 Hematocrit (Bld) [Volume fraction] 25.4 % 37-47 [facility] Laboratory - Hematology and Cell countsOrdered By: Branden Banks on 01-28-2023 Erythrocyte distribution width (RBC) [Entitic vol] 51.3 fL 35.1-43.9 [facility] Erythrocyte distribution width (RBC) [Ratio] 14.2 % 11.6-14.6 [facility] Immature granulocytes/100 WBC (Bld) 2.500 % 0.0-0.9 [facility] Comment on above: IG% - Immature Granu locytes (promyelocytes, myelocytes and metamyelocytes) > 1% indicates that a LEFT SHIFT is Present. MCH (RBC) [Entitic mass] 29.9 pg 27.0-32.0 [facility] Nucleated RBC/100 WBC (Bld) [Ratio] 0 % 0-5 [facility] MCHC Auto (RBC) [Mass/Vol]Or dered By: Branden Banks on 01-28-2023 MCHC (RBC) [Mass/Vol] 29.9 g/dL 32-36 [facility] Platelets bldOrdered By: Miguel A Banks on 01-28-2023 Platelets (Bld) [#/Vol] 303 10*3/uL 150-450 [facility] Basophil percentageOrdered B y: Branden Banks on 01-27-2023 Chloride [Moles/Vol] 103 mmol/L 98-107 [facility] Glucose [Mass/Vol] 124 mg/dL 74-106 [facility] Comment on above: Fasting Glucose resu lt from 100 to 125 mg/dL suggests IMPAIRED HOMEOSTASIS per A.D.A. criteria. Potassium [Moles/Vol] 4.7 mmol/L 3.5-5.1 [facility] Sodium [Moles/Vol] 134 mmol/L 136-145 [facility] Laboratory - Chemistry and C hemistry - challengeOrdered By: Branden Banks on 01-27-2023 CO2 [Moles/Vol] 26.0 mmol/L 21.0-32.0 [facility] Urea nitrogen/Creatinine [Mass ratio] 11.1 mg/mg 10-20 [facility] No Panel InformationOrdered By: Branden Banks on 01-27-2023 Estimated Creatinine Clearance Calc 10.98 ml/min [facility] Estimated GFR (MDRD) Amer 10 mL/min >60 [facility] Comment on above: GFR Calc Estimated GFR (MDRD) Non-Af Amer 8 mL/min >60 [facility] Comment on above: Non- GFR Calc Serum or plasma calcium joya urement (mass/volume)Ordered By: Branden Banks on 01-27-2023 Calcium [Mass/Vol] 8.3 mg/dL 8.5-10.1 [facility] Serum or plasma creatinine m easurement (mass/volume)Ordered By: Branden Banks on 01-27-2023 Creatinine [Mass/Vol] 5.70 mg/dL 0.55-1.02 [facility] Comment on above: The validity of the calculated GFR & GFRAA in patients over 70 years has not been determined. Clinical correlation is essential. Serum or plasma urea nitroge n measurement (mass/volume)Ordered By: Branden Banks on 01-27-2023 Urea nitrogen [Mass/Vol] 63 mg/dL 7-18 [facility] Thin prep Papanicolaou smear with manual screeningOrdered By: Branden Banks on 01-27-2023 Thin prep Papanicolaou smear with manual screening 5 5-15 [facility] Blood manual differential co mment interpretation (narrative result)Ordered By: Branden Banks on 01-26-2023 Manual differential comment Mauricio (Bld) [Interp] SCANNED [facility] Comment on above: LYMPHOPENIA PRESENT Basophil percentageOrdered B y: Maday Mistry on 01-23-2023 Basophil percentage 4.6 mg/dL 2.5-4.9 [facility] Serum or plasma albumin joya urement (mass/volume)Ordered By: Maday Garyichichris on 01-23-2023 Albumin [Mass/Vol] 2.3 g/dL 3.2-5.0 [facility] Hemoglobin in reticulocytes (mass per reticulocyte)Ordered By: Branden Banks on 01-21-2023 Hemoglobin (Reticulocytes) [Entitic mass] 32.9 pg 30-35 [facility] Iron measurement (mass/mass) Ordered By: Branden Banks on 01-21-2023 Iron (Unsp spec) [Mass/Mass] 21 ug/dL 50-170 [facility] Laboratory - Chemistry and C hemistry - challengeOrdered By: Branden Banks on 01-21-2023 Cobalamin (Vitamin B12) [Mass/Vol] 543 pg/mL 211-911 [facility] No Panel InformationOrdered By: Branden Banks on 01-21-2023 Immature Reticulocyte Fraction 9.80 % 3.00-15.90 [facility] Reticulocyte Count 1.09 % 0.5-1.5 [facility] Total Iron Binding Capacity 256 ug/dL 250-450 [facility] Vitamin D 25-Hydroxy 83.2 ng/mL [facility] Comment on above: Vitamin D 25(OH) Sta tus Range Deficiency <20 ng/mL (50nmol/L) Insufficiency 20 - 30 ng/mL (50 - 75 nmol/L) Sufficiency 30 - 100 ng/mL (75 - 250 nmol/L) Toxicity >100 ng/mL (>250 nmol/L) Serum or plasma ferritin lino surement (mass/volume)Ordered By: Branden Banks on 01-21-2023 Ferritin [Mass/Vol] 307 ng/mL 8-252 [facility] Serum or plasma iron saturat ion measurement (mass fraction)Ordered By: Branden Banks on 01-21-2023 Iron saturation [Mass fraction] 8.2 % 15.0-55.0 [facility] Whole blood hemoglobin A1c/t otal hemoglobin ratio (mass fraction)Ordered By: Branden Banks on 01-21-2023 HbA1c (Bld) [Mass fraction] 5.8 % 3.8-5.6 [facility] Comment on above: Normal < 5.7 % Predi abetic 5.7 - 6.4 % Diabetic >or= 6.5 % Please note range changes. Laboratory - Chemistry and C hemistry - challengeOrdered By: Mone Riggs on 01-20-2023 Magnesium [Mass/Vol] 2.1 mg/dL 1.6-2.6 [facility] Laboratory - CoagulationOrde red By: Sylvester Lee on 01-20-2023 aPTT Coag (Bld) [Time] 36.9 s 24.1-36.2 [facility] No Panel InformationOrdered By: Deshawn Tucker on 01-20-2023 Parathyroid Hormone (Intact) 433.9 pg/mL 18.4-80.1 [facility] No Panel InformationOrdered By: Mone Riggs on 01-20-2023 Thyroid Stimulating Hormone (TSH) 3.09 uIU/mL 0.358-3.74 [facility] Absolute lymphocyte countOrd ered By: Yariel Wilks on 01-19-2023 Lymphocytes Auto (Unsp spec) [#/Vol] 1.46 10*3/uL 0.83-4.51 [facility] Basophil percentageOrdered B y: Mone Riggs on 01-19-2023 Chloride [Moles/Vol] 107 mmol/L 98-107 [facility] Glucose [Mass/Vol] 88 mg/dL 74-106 [facility] Potassium [Moles/Vol] 5.7 mmol/L 3.5-5.1 [facility] Sodium [Moles/Vol] 141 mmol/L 136-145 [facility] Basophil percentageOrdered B y: Yariel Wilks on 01-19-2023 Basophils/100 WBC (Bld) 0.7 % 0-1 [facility] Eosinophils/100 WBC (Bld) 4.1 % 0-5 [facility] Neutrophils (Bld) [#/Vol] 3.2 10*3/uL 2.0-7.7 [facility] Neutrophils/100 WBC (Bld) 59.5 % 47-70 [facility] WBC (Bld) [#/Vol] 5.4 10*3/uL 4.4-11.0 [facility] Blood erythrocytes count (nu mber/volume)Ordered By: Yariel Wilks on 01-19-2023 RBC (Bld) [#/Vol] 3.37 10*6/uL 4.2-5.4 [facility] Blood hemoglobin measurement (mass/volume)Ordered By: Yariel Wilks on 01-19-2023 Hemoglobin (Bld) [Mass/Vol] 10.2 g/dL 12.0-15.0 [facility] Blood lymphocytes/100 leukoc ytesOrdered By: Yariel Wilks on 01-19-2023 Lymphocytes/100 WBC (Bld) 27.1 % 19-41 [facility] Blood monocytes/100 leukocyt esOrdered By: Yariel Wilks on 01-19-2023 Monocytes/100 WBC (Bld) 8.2 % 0-10 [facility] Blood platelet mean volumeOr dered By: Yariel Wilks on 01-19-2023 Platelet mean volume (Bld) [Entitic vol] 9.1 fL 6.2-12.0 [facility] Determination of erythrocyte mean corpuscular volume (MCV)Ordered By: Yariel Wilks on 01-19-2023 MCV (RBC) [Entitic vol] 101.5 fL 81-99 [facility] Hematocrit Auto (Bld) [Volum e fraction]Ordered By: Yariel iWlks on 01-19-2023 Hematocrit (Bld) [Volume fraction] 34.2 % 37-47 [facility] Laboratory - Chemistry and C hemistry - challengeOrdered By: Mone Riggs on 01-19-2023 CO2 [Moles/Vol] 27.0 mmol/L 21.0-32.0 [facility] Urea nitrogen/Creatinine [Mass ratio] 9.2 mg/mg 10-20 [facility] Laboratory - Hematology and Cell countsOrdered By: Yariel Wilks on 01-19-2023 Erythrocyte distribution width (RBC) [Entitic vol] 54.0 fL 35.1-43.9 [facility] Erythrocyte distribution width (RBC) [Ratio] 14.4 % 11.6-14.6 [facility] Immature granulocytes/100 WBC (Bld) 0.400 % 0.0-0.9 [facility] Comment on above: IG% - Immature Granu locytes (promyelocytes, myelocytes and metamyelocytes) > 1% indicates that a LEFT SHIFT is Present. MCH (RBC) [Entitic mass] 30.3 pg 27.0-32.0 [facility] Nucleated RBC/100 WBC (Bld) [Ratio] 0 % 0-5 [facility] MCHC Auto (RBC) [Mass/Vol]Or dered By: Yariel Wilks on 01-19-2023 MCHC (RBC) [Mass/Vol] 29.8 g/dL 32-36 [facility] No Panel InformationOrdered By: Mone Riggs on 01-19-2023 Estimated Creatinine Clearance Calc 11.73 ml/min [facility] Estimated GFR (MDRD) Amer 11 mL/min >60 [facility] Comment on above: GFR Calc Estimated GFR (MDRD) Non-Af Amer 9 mL/min >60 [facility] Comment on above: Non- GFR Calc Platelets bldOrdered By: Franki Wilks on 01-19-2023 Platelets (Bld) [#/Vol] 164 10*3/uL 150-450 [facility] Serum or plasma calcium joya urement (mass/volume)Ordered By: Mone Riggs on 01-19-2023 Calcium [Mass/Vol] 8.4 mg/dL 8.5-10.1 [facility] Serum or plasma creatinine m easurement (mass/volume)Ordered By: Mone Riggs on 01-19-2023 Creatinine [Mass/Vol] 5.34 mg/dL 0.55-1.02 [facility] Comment on above: The validity of the calculated GFR & GFRAA in patients over 70 years has not been determined. Clinical correlation is essential. Serum or plasma urea nitroge n measurement (mass/volume)Ordered By: Mone Riggs on 01-19-2023 Urea nitrogen [Mass/Vol] 49 mg/dL 7-18 [facility] Thin prep Papanicolaou smear with manual screeningOrdered By: Mone Riggs on 01-19-2023 Thin prep Papanicolaou smear with manual screening 7 5-15 [facility] XR TIBIA FIBULA 2V AP/LAT RI DOROTHEATon 12-15-2022 [facility] UA DIP, URINE (POC)on 2022 BILIRUBIN UA (POCT) Negative Negative [facility] CLARITY UA (POCT) Cloudy [facility] COLOR UA (POCT) Yellow [facility] GLUCOSE UA (POCT) Negative Negative mg/dL [facility] Hemoglobin Ql (U) Small Abnormal Negative [facility] KETONE UA (POCT) Negative Negative mg/dL [facility] LEUKOCYTES UA (POCT) Large Abnormal Negative [facility] [facility] NITRITE UA (POCT) Negative Negative [facility] PH UA (POCT) 8.5 Abnormal 4.5 - 8.0 [facility] Protein Ql (U) 100 mg/dL Abnormal Negative mg/dL [facility] SPECIFIC GRAVITY UA (POCT) 1.015 1.005 - 1.030 [facility] UROBILINOGEN UA (POCT) 0.2 E.U./dL Rosa l E.U./dL [facility] No Panel Informationon 11-10 [facility] Absolute lymphocyte countOrd ered By: Audra Ahuja on 10-30-2022 Lymphocytes Auto (Unsp spec) [#/Vol] 0.97 10*3/uL 0.83-4.51 [facility] Basophil percentageOrdered B y: Audra Ahuja on 10-30-2022 Basophils/100 WBC (Bld) 0.7 % 0-1 [facility] Chloride [Moles/Vol] 97 mmol/L 98-107 [facility] Eosinophils/100 WBC (Bld) 3.2 % 0-5 [facility] Glucose [Mass/Vol] 73 mg/dL 74-106 [facility] Neutrophils (Bld) [#/Vol] 2.9 10*3/uL 2.0-7.7 [facility] Neutrophils/100 WBC (Bld) 65.5 % 47-70 [facility] Potassium [Moles/Vol] 4.2 mmol/L 3.5-5.1 [facility] Sodium [Moles/Vol] 132 mmol/L 136-145 [facility] WBC (Bld) [#/Vol] 4.4 10*3/uL 4.4-11.0 [facility] Blood erythrocytes count (nu mber/volume)Ordered By: Audra Ahuja on 10-30-2022 RBC (Bld) [#/Vol] 3.29 10*6/uL 4.2-5.4 [facility] Blood hemoglobin measurement (mass/volume)Ordered By: Audra Ahuja on 10-30-2022 Hemoglobin (Bld) [Mass/Vol] 10.5 g/dL 12.0-15.0 [facility] Blood lymphocytes/100 leukoc ytesOrdered By: Audra Ahuja on 10-30-2022 Lymphocytes/100 WBC (Bld) 21.8 % 19-41 [facility] Blood monocytes/100 leukocyt esOrdered By: Audra Ahuja on 10-30-2022 Monocytes/100 WBC (Bld) 8.6 % 0-10 [facility] Blood platelet mean volumeOr dered By: Audra Ahuja on 10-30-2022 Platelet mean volume (Bld) [Entitic vol] 9.1 fL 6.2-12.0 [facility] Determination of erythrocyte mean corpuscular volume (MCV)Ordered By: Audra Ahuja on 10-30-2022 MCV (RBC) [Entitic vol] 103.0 fL 81-99 [facility] Hematocrit Auto (Bld) [Volum e fraction]Ordered By: Audra Ahuja on 10-30-2022 Hematocrit (Bld) [Volume fraction] 33.9 % 37-47 [facility] Laboratory - Chemistry and C hemistry - challengeOrdered By: Audra Ahuja on 10-30-2022 CO2 [Moles/Vol] 30.0 mmol/L 21.0-32.0 [facility] Urea nitrogen/Creatinine [Mass ratio] 3.8 mg/mg 10-20 [facility] Laboratory - Hematology and Cell countsOrdered By: Audra Ahuja on 10-30-2022 Erythrocyte distribution width (RBC) [Entitic vol] 53.3 fL 35.1-43.9 [facility] Erythrocyte distribution width (RBC) [Ratio] 14.3 % 11.6-14.6 [facility] Immature granulocytes/100 WBC (Bld) 0.200 % 0.0-0.9 [facility] Comment on above: IG% - Immature Granu locytes (promyelocytes, myelocytes and metamyelocytes) > 1% indicates that a LEFT SHIFT is Present. MCH (RBC) [Entitic mass] 31.9 pg 27.0-32.0 [facility] Nucleated RBC/100 WBC (Bld) [Ratio] 0 % 0-5 [facility] MCHC Auto (RBC) [Mass/Vol]Or dered By: Audra Ahuja on 10-30-2022 MCHC (RBC) [Mass/Vol] 31.0 g/dL 32-36 [facility] No Panel InformationOrdered By: Audra Ahuja on 10-30-2022 Troponin I High Sensitivity 17 pg/mL 3.0-54.0 [facility] Comment on above: Please Note: New [place] t Units and Gender Specific Reference Ranges. For more information see Policy Stat Procedure [place] High Sensitivity Troponin (TNIH) and attachments. Estimated Creatinine Clearance Calc 15.93 ml/min [facility] Estimated GFR (MDRD) Amer 15 mL/min >60 [facility] Comment on above: GFR Calc Estimated GFR (MDRD) Non-Af Amer 13 mL/min >60 [facility] Comment on above: Non- GFR Calc Platelets bldOrdered By: Luzmaria Ahuja on 10-30-2022 Platelets (Bld) [#/Vol] 188 10*3/uL 150-450 [facility] Serum or plasma calcium joya urement (mass/volume)Ordered By: Audra Ahuja on 10-30-2022 Calcium [Mass/Vol] 9.1 mg/dL 8.5-10.1 [facility] Serum or plasma creatinine m easurement (mass/volume)Ordered By: Audra Ahuja on 10-30-2022 Creatinine [Mass/Vol] 3.93 mg/dL 0.55-1.02 [facility] Comment on above: The validity of the calculated GFR & GFRAA in patients over 70 years has not been determined. Clinical correlation is essential. Serum or plasma urea nitroge n measurement (mass/volume)Ordered By: Audra Ahuja on 10-30-2022 Urea nitrogen [Mass/Vol] 15 mg/dL 7-18 [facility] Thin prep Papanicolaou smear with manual screeningOrdered By: Audra Ahuja on 10-30-2022 Thin prep Papanicolaou smear with manual screening 5 5-15 [facility] Basophil percentageOrdered B y: Tyler Murrieta on 09-24-2022 Basophil percentage 6.1 mg/dL 2.5-4.9 [facility] Chloride [Moles/Vol] 115 mmol/L 98-107 [facility] Glucose [Mass/Vol] 87 mg/dL 74-106 [facility] Potassium [Moles/Vol] 5.0 mmol/L 3.5-5.1 [facility] Sodium [Moles/Vol] 140 mmol/L 136-145 [facility] Laboratory - Chemistry and C hemistry - challengeOrdered By: Tyler Murrieta on 09-24-2022 CO2 [Moles/Vol] 18.0 mmol/L 21.0-32.0 [facility] Urea nitrogen/Creatinine [Mass ratio] 10.5 mg/mg 10-20 [facility] No Panel InformationOrdered By: Tyler Murrieta on 09-24-2022 Estimated GFR (MDRD) Amer 9 mL/min >60 [facility] Comment on above: GFR Calc Estimated GFR (MDRD) Non-Af Amer 7 mL/min >60 [facility] Comment on above: Non- GFR Calc Serum or plasma calcium joya urement (mass/volume)Ordered By: Tyler Murrieta on 09-24-2022 Calcium [Mass/Vol] 8.2 mg/dL 8.5-10.1 [facility] Serum or plasma creatinine m easurement (mass/volume)Ordered By: Tyler Murrieta on 09-24-2022 Creatinine [Mass/Vol] 6.22 mg/dL 0.55-1.02 [facility] Comment on above: The validity of the calculated GFR & GFRAA in patients over 70 years has not been determined. Clinical correlation is essential. Serum or plasma urea nitroge n measurement (mass/volume)Ordered By: Tyler Murrieta on 09-24-2022 Urea nitrogen [Mass/Vol] 65 mg/dL 7-18 [facility] Thin prep Papanicolaou smear with manual screeningOrdered By: Tyler Murrieta on 09-24-2022 Thin prep Papanicolaou smear with manual screening 7 5-15 [facility] Basophil percentageOrdered B y: Sofía Hill on 09-19-2022 Chloride [Moles/Vol] 115 mmol/L 98-107 [facility] Glucose [Mass/Vol] 96 mg/dL 74-106 [facility] Potassium [Moles/Vol] 4.4 mmol/L 3.5-5.1 [facility] Sodium [Moles/Vol] 141 mmol/L 136-145 [facility] Laboratory - Chemistry and C hemistry - challengeOrdered By: Sofía Hill on 09-19-2022 CO2 [Moles/Vol] 18.0 mmol/L 21.0-32.0 [facility] Urea nitrogen/Creatinine [Mass ratio] 12.5 mg/mg 10-20 [facility] No Panel InformationOrdered By: Sofía Hill on 09-19-2022 Estimated GFR (MDRD) Amer 10 mL/min >60 [facility] Comment on above: GFR Calc Estimated GFR (MDRD) Non-Af Amer 8 mL/min >60 [facility] Comment on above: Non- GFR Calc Serum or plasma calcium joya urement (mass/volume)Ordered By: Sofía Hill on 09-19-2022 Calcium [Mass/Vol] 8.2 mg/dL 8.5-10.1 [facility] Serum or plasma creatinine m easurement (mass/volume)Ordered By: Sofía Hill on 09-19-2022 Creatinine [Mass/Vol] 5.84 mg/dL 0.55-1.02 [facility] Comment on above: The validity of the calculated GFR & GFRAA in patients over 70 years has not been determined. Clinical correlation is essential. Serum or plasma urea nitroge n measurement (mass/volume)Ordered By: Sofía Hill on 09-19-2022 Urea nitrogen [Mass/Vol] 73 mg/dL 7-18 [facility] Thin prep Papanicolaou smear with manual screeningOrdered By: Sofía Hill on 09-19-2022 Thin prep Papanicolaou smear with manual screening 8 5-15 [facility] Basophil percentageOrdered B y: Sofía Hill on 09-17-2022 Chloride [Moles/Vol] 112 mmol/L 98-107 [facility] Glucose [Mass/Vol] 98 mg/dL 74-106 [facility] Potassium [Moles/Vol] 4.9 mmol/L 3.5-5.1 [facility] Sodium [Moles/Vol] 141 mmol/L 136-145 [facility] Laboratory - Chemistry and C hemistry - challengeOrdered By: Sofía Hill on 09-17-2022 CO2 [Moles/Vol] 18.0 mmol/L 21.0-32.0 [facility] Urea nitrogen/Creatinine [Mass ratio] 12.4 mg/mg 10-20 [facility] No Panel InformationOrdered By: Sofía Hill on 09-17-2022 Estimated GFR (MDRD) Amer 10 mL/min >60 [facility] Comment on above: GFR Calc Estimated GFR (MDRD) Non-Af Amer 8 mL/min >60 [facility] Comment on above: Non- GFR Calc Serum or plasma calcium joya urement (mass/volume)Ordered By: Sofía Hill on 09-17-2022 Calcium [Mass/Vol] 8.3 mg/dL 8.5-10.1 [facility] Serum or plasma creatinine m easurement (mass/volume)Ordered By: Sofía Hill on 09-17-2022 Creatinine [Mass/Vol] 5.88 mg/dL 0.55-1.02 [facility] Comment on above: The validity of the calculated GFR & GFRAA in patients over 70 years has not been determined. Clinical correlation is essential. Serum or plasma urea nitroge n measurement (mass/volume)Ordered By: Sofía Hill on 09-17-2022 Urea nitrogen [Mass/Vol] 73 mg/dL 7-18 [facility] Thin prep Papanicolaou smear with manual screeningOrdered By: Sofía Hill on 09-17-2022 Thin prep Papanicolaou smear with manual screening 11 - [facility] Absolute lymphocyte countOrd ered By: Allison Chang on 09-15-2022 Lymphocytes Auto (Unsp spec) [#/Vol] 1.50 10*3/uL 0.83-4.51 [facility] Basophil percentageOrdered B y: Allison Chang on 09-15-2022 Basophils/100 WBC (Bld) 0.5 % 0-1 [facility] Bilirubin [Mass/Vol] 0.30 mg/dL 0.20-1.00 [facility] Comment on above: For patients on eltr ombopag therapy, use of Dimension [place] TBIL is not recommended. Chloride [Moles/Vol] 111 mmol/L 98-107 [facility] Eosinophils/100 WBC (Bld) 4.6 % 0-5 [facility] Glucose [Mass/Vol] 147 mg/dL 74-106 [facility] Comment on above: Fasting Glucose resu lt greater than or equal to 126 mg/dL suggests DIABETES MELLITUS per A.D.A. criteria. Neutrophils (Bld) [#/Vol] 4.2 10*3/uL 2.0-7.7 [facility] Neutrophils/100 WBC (Bld) 64.7 % 47-70 [facility] Potassium [Moles/Vol] 5.4 mmol/L 3.5-5.1 [facility] Protein [Mass/Vol] 5.4 g/dL 6.4-8.2 [facility] Sodium [Moles/Vol] 136 mmol/L 136-145 [facility] WBC (Bld) [#/Vol] 6.6 10*3/uL 4.4-11.0 [facility] Blood erythrocytes count (nu mber/volume)Ordered By: Allison Chang on 09-15-2022 RBC (Bld) [#/Vol] 2.50 10*6/uL 4.2-5.4 [facility] Blood hemoglobin measurement (mass/volume)Ordered By: Allison Chang on 09-15-2022 Hemoglobin (Bld) [Mass/Vol] 7.7 g/dL 12.0-15.0 [facility] Blood lymphocytes/100 leukoc ytesOrdered By: Allison Chang on 09-15-2022 Lymphocytes/100 WBC (Bld) 22.9 % 19-41 [facility] Blood monocytes/100 leukocyt esOrdered By: Allison Chang on 09-15-2022 Monocytes/100 WBC (Bld) 6.7 % 0-10 [facility] Blood platelet mean volumeOr dered By: Allison Chang on 09-15-2022 Platelet mean volume (Bld) [Entitic vol] 9.8 fL 6.2-12.0 [facility] Determination of erythrocyte mean corpuscular volume (MCV)Ordered By: Allison Chang on 09-15-2022 MCV (RBC) [Entitic vol] 102.4 fL 81-99 [facility] Hematocrit Auto (Bld) [Volum e fraction]Ordered By: Allison Chang on 09-15-2022 Hematocrit (Bld) [Volume fraction] 25.6 % 37-47 [facility] Laboratory - Chemistry and C hemistry - challengeOrdered By: Allison Chang on 09-15-2022 ALP [Catalytic activity/Vol] 71 U/L 45-117 [facility] ALT [Catalytic activity/Vol] 17 U/L 13-56 [facility] CO2 [Moles/Vol] 18.0 mmol/L 21.0-32.0 [facility] Cobalamin (Vitamin B12) [Mass/Vol] 416 pg/mL 211-911 [facility] Globulin (S) [Mass/Vol] 3.0 g/dL 2.2-4.2 [facility] Urea nitrogen/Creatinine [Mass ratio] 12.0 mg/mg 10-20 [facility] Laboratory - Hematology and Cell countsOrdered By: Allison Chang on 09-15-2022 Erythrocyte distribution width (RBC) [Entitic vol] 47.8 fL 35.1-43.9 [facility] Erythrocyte distribution width (RBC) [Ratio] 12.8 % 11.6-14.6 [facility] Immature granulocytes/100 WBC (Bld) 0.600 % 0.0-0.9 [facility] Comment on above: IG% - Immature Granu locytes (promyelocytes, myelocytes and metamyelocytes) > 1% indicates that a LEFT SHIFT is Present. MCH (RBC) [Entitic mass] 30.8 pg 27.0-32.0 [facility] Nucleated RBC/100 WBC (Bld) [Ratio] 0 % 0-5 [facility] MCHC Auto (RBC) [Mass/Vol]Or dered By: Allison Chang on 09-15-2022 MCHC (RBC) [Mass/Vol] 30.1 g/dL 32-36 [facility] No Panel InformationOrdered By: Allison Chang on 09-15-2022 Estimated GFR (MDRD) Amer 10 mL/min >60 [facility] Comment on above: GFR Calc Estimated GFR (MDRD) Non-Af Amer 8 mL/min >60 [facility] Comment on above: Non- GFR Calc Vitamin D 25-Hydroxy 54.4 ng/mL [facility] Comment on above: Vitamin D 25(OH) Sta tus Range Deficiency <20 ng/mL (50nmol/L) Insufficiency 20 - 30 ng/mL (50 - 75 nmol/L) Sufficiency 30 - 100 ng/mL (75 - 250 nmol/L) Toxicity >100 ng/mL (>250 nmol/L) Platelets bldOrdered By: Joshua Chang on 09-15-2022 Platelets (Bld) [#/Vol] 150 10*3/uL 150-450 [facility] Serum or plasma albumin joya urement (mass/volume)Ordered By: Allison Chang on 09-15-2022 Albumin [Mass/Vol] 2.4 g/dL 3.2-5.0 [facility] Serum or plasma albumin/glob ulin mass ratioOrdered By: Allison Chang on 09-15-2022 Albumin/Globulin [Mass ratio] 0.8 {ratio} 0.9-2.4 [facility] Serum or plasma calcium joya urement (mass/volume)Ordered By: Allison Chang on 09-15-2022 Calcium [Mass/Vol] 8.0 mg/dL 8.5-10.1 [facility] Serum or plasma creatinine m easurement (mass/volume)Ordered By: Allison Chang on 09-15-2022 Creatinine [Mass/Vol] 5.73 mg/dL 0.55-1.02 [facility] Comment on above: The validity of the calculated GFR & GFRAA in patients over 70 years has not been determined. Clinical correlation is essential. Serum or plasma urea nitroge n measurement (mass/volume)Ordered By: Allison Chang on 09-15-2022 Urea nitrogen [Mass/Vol] 69 mg/dL 7-18 [facility] Thin prep Papanicolaou smear with manual screeningOrdered By: Allison Chang on 09-15-2022 Thin prep Papanicolaou smear with manual screening 16 U/L 15-37 [facility] Thin prep Papanicolaou smear with manual screening 7 5-15 [facility] Whole blood hemoglobin A1c/t otal hemoglobin ratio (mass fraction)Ordered By: Allison Chang on 09-15-2022 HbA1c (Bld) [Mass fraction] 7.5 % 3.8-5.6 [facility] Comment on above: Normal < 5.7 % Predi abetic 5.7 - 6.4 % Diabetic >or= 6.5 % Please note range changes. Glucose Glucometer (BldC) [M ass/Vol]Ordered By: Sylvester Ortiz on 09-12-2022 Glucose [Mass/Vol] 181 mg/dL 74-106 [facility] Comment on above: MANAGEMENT OF PATIEN T CARE PER NURSING PROTOCOL Absolute lymphocyte countOrd ered By: Lizzy Mahsa on 09-10-2022 Lymphocytes Auto (Unsp spec) [#/Vol] 1.47 10*3/uL 0.83-4.51 [facility] Basophil percentageOrdered B y: Lizzy Mahsa on 09-10-2022 Basophils/100 WBC (Bld) 0.6 % 0-1 [facility] Bilirubin [Mass/Vol] 0.40 mg/dL 0.20-1.00 [facility] Comment on above: For patients on eltr ombopag therapy, use of Dimension [place] TBIL is not recommended. Chloride [Moles/Vol] 110 mmol/L 98-107 [facility] Eosinophils/100 WBC (Bld) 2.3 % 0-5 [facility] Glucose [Mass/Vol] 243 mg/dL 74-106 [facility] Comment on above: Glucose result great er than or equal to 200 mg/dLsuggests DIABETES MELLITUS per A.D.A. criteria. Neutrophils (Bld) [#/Vol] 4.4 10*3/uL 2.0-7.7 [facility] Neutrophils/100 WBC (Bld) 66.3 % 47-70 [facility] Potassium [Moles/Vol] 5.0 mmol/L 3.5-5.1 [facility] Protein [Mass/Vol] 6.0 g/dL 6.4-8.2 [facility] Sodium [Moles/Vol] 137 mmol/L 136-145 [facility] WBC (Bld) [#/Vol] 6.6 10*3/uL 4.4-11.0 [facility] Basophil percentage 6.5 mg/dL 2.5-4.9 [facility] Basophil percentageOrdered B y: Minh Arroyo on 09-10-2022 Lactate [Moles/Vol] 0.8 mmol/L 0.4-2.0 [facility] Blood erythrocytes count (nu mber/volume)Ordered By: Lizzy Bragg on 09-10-2022 RBC (Bld) [#/Vol] 2.80 10*6/uL 4.2-5.4 [facility] Blood hemoglobin measurement (mass/volume)Ordered By: Lizzy Bragg on 09-10-2022 Hemoglobin (Bld) [Mass/Vol] 8.8 g/dL 12.0-15.0 [facility] Blood lymphocytes/100 leukoc ytesOrdered By: Lizzy Bragg on 09-10-2022 Lymphocytes/100 WBC (Bld) 22.2 % 19-41 [facility] Blood monocytes/100 leukocyt esOrdered By: Lizzy Bragg on 09-10-2022 Monocytes/100 WBC (Bld) 8.3 % 0-10 [facility] Blood platelet mean volumeOr dered By: Lizzy Bragg on 09-10-2022 Platelet mean volume (Bld) [Entitic vol] 9.5 fL 6.2-12.0 [facility] Determination of erythrocyte mean corpuscular volume (MCV)Ordered By: Lizzy Bragg on 09-10-2022 MCV (RBC) [Entitic vol] 97.5 fL 81-99 [facility] Erythrocyte sedimentation ra teOrdered By: Minh Arroyo on 09-10-2022 ESR (Bld) [Velocity] 21 mm/h 0-30 [facility] Hematocrit Auto (Bld) [Volum e fraction]Ordered By: Lizzy Bragg on 09-10-2022 Hematocrit (Bld) [Volume fraction] 27.3 % 37-47 [facility] Laboratory - Chemistry and C hemistry - challengeOrdered By: Lizzy Bragg on 09-10-2022 ALP [Catalytic activity/Vol] 86 U/L 45-117 [facility] ALT [Catalytic activity/Vol] 20 U/L 13-56 [facility] CO2 [Moles/Vol] 19.0 mmol/L 21.0-32.0 [facility] Globulin (S) [Mass/Vol] 3.4 g/dL 2.2-4.2 [facility] Urea nitrogen/Creatinine [Mass ratio] 9.5 mg/mg 10-20 [facility] Magnesium [Mass/Vol] 1.6 mg/dL 1.6-2.6 [facility] Laboratory - Hematology and Cell countsOrdered By: Lizzy Bragg on 09-10-2022 Erythrocyte distribution width (RBC) [Entitic vol] 45.5 fL 35.1-43.9 [facility] Erythrocyte distribution width (RBC) [Ratio] 12.8 % 11.6-14.6 [facility] Immature granulocytes/100 WBC (Bld) 0.300 % 0.0-0.9 [facility] Comment on above: IG% - Immature Granu locytes (promyelocytes, myelocytes and metamyelocytes) > 1% indicates that a LEFT SHIFT is Present. MCH (RBC) [Entitic mass] 31.4 pg 27.0-32.0 [facility] Nucleated RBC/100 WBC (Bld) [Ratio] 0 % 0-5 [facility] MCHC Auto (RBC) [Mass/Vol]Or dered By: Lizzy Bragg on 09-10-2022 MCHC (RBC) [Mass/Vol] 32.2 g/dL 32-36 [facility] No Panel InformationOrdered By: Lizzy Bragg on 09-10-2022 Estimated Creatinine Clearance Calc 11.95 ml/min [facility] Estimated GFR (MDRD) Amer 11 mL/min >60 [facility] Comment on above: GFR Calc Estimated GFR (MDRD) Non-Af Amer 9 mL/min >60 [facility] Comment on above: Non- GFR Calc Platelets bldOrdered By: Tg Bragg on 09-10-2022 Platelets (Bld) [#/Vol] 137 10*3/uL 150-450 [facility] Serum or plasma C reactive p rotein measurement (mass/volume)Ordered By: Minh Arroyo on 09-10-2022 CRP [Mass/Vol] 15.60 mg/L 0.0-3.0 [facility] Comment on above: C-Reactive Protein ( CRP) provides useful information for thediagnosis, therapy and monitoring of inflammatory processesand associated diseases. For the evaluation of Relative Riskfor Cardiovascular Disease, a High Sensitivity CRP (HSCRP)should be ordered. Serum or plasma albumin joya urement (mass/volume)Ordered By: Lizzy Bragg on 09-10-2022 Albumin [Mass/Vol] 2.6 g/dL 3.2-5.0 [facility] Serum or plasma albumin/glob ulin mass ratioOrdered By: Lizzy Bragg on 09-10-2022 Albumin/Globulin [Mass ratio] 0.8 {ratio} 0.9-2.4 [facility] Serum or plasma calcium joya urement (mass/volume)Ordered By: Lizzy Bragg on 09-10-2022 Calcium [Mass/Vol] 7.9 mg/dL 8.5-10.1 [facility] Serum or plasma creatinine m easurement (mass/volume)Ordered By: Lizzy Mahsa on 09-10-2022 Creatinine [Mass/Vol] 5.24 mg/dL 0.55-1.02 [facility] Comment on above: The validity of the calculated GFR & GFRAA in patients over 70 years has not been determined. Clinical correlation is essential. Serum or plasma urea nitroge n measurement (mass/volume)Ordered By: Lizzy Bragg on 09-10-2022 Urea nitrogen [Mass/Vol] 50 mg/dL 7-18 [facility] Thin prep Papanicolaou smear with manual screeningOrdered By: Lizzy Mahsa on 09-10-2022 Thin prep Papanicolaou smear with manual screening 23 U/L 15-37 [facility] Thin prep Papanicolaou smear with manual screening 8 5-15 [facility] XR CHEST 1V FRONTALon 2022 [facility] XR ELBOW GENERAL 2V AP/LAT R IGHTon 08-11-2022 [facility] ANES POSTPROC EVALon 023 ANES POSTPROC EVAL HNO ID: [id number] Author: Rashid Grace MD Service: Anesthesiology Author [...] July 24, 2022 TIME: 10:24 AM CSN: [id number] [facility] ANES PRE-OPon 07-24-2022 ANES PRE-OP HNO ID: [id number] Author: Rashid Grace MD Service: Anesthesiology Author Type: Physician Type: Anesthesia Preprocedure Evaluation Filed: 07/24/2022 8:08 AM Note Text: ANESTHESIOLOGY DAY OF SURGERY NOTE : 1965 Procedure Information Date/Time: 07/24/22729 Procedure: CREATION FISTULA ARTERIOVENOUS EXTREMITY UPPER (Left: Arm) - NO [employer] NEEDED Location: [facility]04[facility] / [facility] [...] and consent discussed: yes. Patient / Responsible [employer] Party agrees to proceed: yes Patient / Surrogate [...] 1 tablet by mouth once daily. - Jbwssacs-Da-Gup-Fe- FA ( VITAMIN) ORAL Tab Take 1 [...] record and/ (more content not included)... [facility] ANTIBODY ID PATIENTon 2022 ANTIBODY IDENTIFIED Anti-K, Anti-Fya [facility] Comment on above: Order Comment: Speci men Type: BLOOD SPECIMEN Ordering Facility: [facility] Address: [address] [place] [id number] Result Comment: Valerie ected result: Previously reported as Anti-K on 07/24/2022 at 1:38 PM EDT. Performed By: #### % CORDELL, TSCR, [id number] #### [facility] CLIA [id number] [address] [place] [id number] [facility] B[facility]OD BANK COMMENTon 023 BLOOD BANK COMMENT See Comment [facility] Comment on above: Order Comment: Speci men Type: BLOOD SPECIMEN Ordering Facility: [facility] Address: [address] [place] [address] Result Comment: See physician's report under antibody interpretation from 07/14/2012 Performed By: #### % CORDELL, TSCR, [id number] #### [facility] CLIA [id number] [address] [address] [place] [id number] [facility] BRIEF OP NOTon 07-24-2022 BRIEF OP NOT HNO ID: [id number] Author: Yana Russell MD Service: Vascular Surgery Author Type: Resident Type: Brief Op Note Filed: 07/24/2022 10:21 AM Note Text: BRIEF OPERATIVE / PROCEDURE NOTE LOG ID: [id number] Surgery/Procedure Date: 07/24/2022 Incision/Procedure Start Time: 8:39 AM Incision Close/Procedure End Time: 10:04 AM Surgeon(s)/Procedur alist(s) and Education Faculty Member(s): Surgeon(s) and Role: * Jonathan Valenzuela MD [...] DATE: July 24, 2022 TIME: 10:19 AM [facility] NURSING PROGon 07-24-2022 NURSING PROG HNO ID: [id number] Author: Lindy Acevedo RN Service: Nursing Author [...] (RECOMMENDATION): None Electronically Signed By: Lindy Acevedo [facility] OPERATIVE NOon 07-24-2022 OPERATIVE NO HNO ID: [id number] Author: Jonathan Valenzuela MD Service: Vascular Surgery Author Type: Physician Type: Operative Report Filed: 07/24/2022 10:19 AM Note Text: OPERATIVE/PROCEDURE REPORT LOG ID: [id number] SURGERY/PROCEDURE DATE: 07/24/2022 INCISION/PROCEDURE START TIME: 8:39 AM INCISION CLOSE/PROCEDURE END TIME: 10:04 AM SURGEON(S)/PROCEDTAIWO ALIST(S) AND NEUROLOGY MANAGER(S): Surgeon(s) and Role: * Jonathan Valenzuela MD [...] cephalic vein, the median cubital vein and 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 The [...] Implant Name Type Inv. Item Serial No. Bicycle I Assembler Lot No. LRB No. Used Action GRAFT 4-7MM STANDARD DIRECTOR OF SERVICES GORE-SPENCER 45CM VASCULAR STRETCH STERILE - [id number] Graft GRAFT 4-7MM STANDARD DIRECTOR OF SERVICES GORE-SPENCER 45CM VASCULAR STRETCH STERILE [id number] Elpidio CHANG AND Left 1 Implanted DRAINS: None COMPLICATIONS: None CLOSURE TECHNIQUE: Primary PARTICIPATION IN SURGERY/PROCEDURE: I/primary surgeon/procedurali st performed the procedure with assistance. SIGNATURE: Jonathan Valenzuela MD PATIENT NAME: Margareth Gonzalez DATE: July 24, 2022 TIME: 10:02 AM [facility] TYPE + SCREENon 07-24-2022 ABO A Normal [facility] Comment on above: Order Comment: Speci men Type: BLOOD SPECIMEN Ordering Facility: [facility] Address: [address] [place] [address] Performed By: #### % CORDELL, TSCR, [id number] #### [facility] CLIA [id number] [address] [place] [address] HISTORICAL AB SCR STATUS Positive Abnormal [facility] Comment on above: Order Comment: Speci men Type: BLOOD SPECIMEN Ordering Facility: [facility] Address: [address] [place] [address] Performed By: #### % CORDELL, TSCR, [id number] #### [facility] CLIA [id number] [address] [place] [address] STATES [facility] Rh Nom (Bld) Positive [facility] Comment on above: Order Comment: Speci men Type: BLOOD SPECIMEN Ordering Facility: [facility] Address: [address] [place] [address] Performed By: #### % CORDELL, TSCR, [id number] #### [facility] CLIA [id number] [address] [place] [address] [place] TYPE AND SCREEN EXPIRATION 07/27/2022 23:59 Normal [facility] Comment on above: Order Comment: Speci men Type: BLOOD SPECIMEN Ordering Facility: [facility] Address: [address] [place] [address] Performed By: #### % CORDELL, TSCR, [id number] #### [facility] CLIA [id number] [address] [place] [address] [place] URINE CULTUREon 07-02-2022 Bacteria identified Cx Nom (U) Mixed microbiota: [facility] Bacteria identified Cx Nom (U) 10,000 -<50,000 CFU/ml Enterococcus faecalis Abnormal [facility] Bacteria identified Cx Nom (U) Negative Abnormal [facility] Comprehensive metabolic 2000 panelon 07-01-2022 Albumin [Mass/Vol] 3.6 g/dL Low 3.9 - 4.9 g/dL [facility] ALP [Catalytic activity/Vol] 101 U/L 34 - 123 U/L [facility] ALT [Catalytic activity/Vol] 32 U/L 7 - 38 U/L [facility] Anion gap [Moles/Vol] 10 mmol/L 9 - 18 mmol/L [facility] AST [Catalytic activity/Vol] 34 U/L 13 - 35 U/L [facility] Bilirubin [Mass/Vol] 0.2 mg/dL 0.2 - 1 .3 mg/dL [facility] Calcium [Mass/Vol] 8.5 mg/dL 8.5 - 10. 2 mg/dL [facility] Chloride [Moles/Vol] 100 mmol/L 97 - 10 5 mmol/L [facility] CO2 [Moles/Vol] 24 mmol/L 22 - 30 mmol/L [facility] Creatinine [Mass/Vol] 4.37 mg/dL High 0.58 - 0.96 mg/dL [facility] Estimated Glomerular Filtration Rate 11 mL/min/1.73m Low >=60 mL/min/1.73m [facility] Glucose [Mass/Vol] 361 mg/dL High 74 - 99 mg/dL [facility] Potassium [Moles/Vol] 5.9 mmol/L High 3.7 - 5.1 mmol/L [facility] Protein [Mass/Vol] 6.1 g/dL Low 6.3 - 8.0 g/dL [facility] Sodium [Moles/Vol] 134 mmol/L Low 136 - 144 mmol/L [facility] Urea nitrogen [Mass/Vol] 47 mg/dL High 7 - 21 mg/d L [facility] CBC W Auto Differential pane l (Bld)on 06-30-2022 Basophils (Bld) [#/Vol] 0.04 10*3/uL <0.11 k/uL [facility] Basophils/100 WBC (Bld) 0.6 % [facility] Differential cell count method Nom (Bld) Auto [facility] Eosinophils (Bld) [#/Vol] 0.21 10*3/uL <0.46 k/uL [facility] Eosinophils/100 WBC (Bld) 3.4 % [facility] Erythrocyte distribution width (RBC) [Ratio] 12.1 % 11.5 - 15.0 % [facility] Hematocrit (Bld) [Volume fraction] 30.7 % Low 36.0 - 46.0 % [facility] Hemoglobin (Bld) [Mass/Vol] 10.0 g/dL Low 11.5 - 15.5 g/dL [facility] Immature granulocytes (Bld) [#/Vol] 0.03 10*3/uL <0.10 k/uL [facility] Immature granulocytes/100 WBC (Bld) 0.5 % [facility] Lymphocytes (Bld) [#/Vol] 1.56 10*3/uL 1.00 - 4.00 k/uL [facility] Lymphocytes/100 WBC (Bld) 25.1 % [facility] MCH (RBC) [Entitic mass] 31.6 pg 26. 0 - 34.0 pg [facility] MCHC (RBC) [Mass/Vol] 32.6 g/dL 30.5 - 36.0 g/dL [facility] MCV (RBC) [Entitic vol] 97.2 fL 80.0 - 100.0 fL [facility] Monocytes (Bld) [#/Vol] 0.39 10*3/uL <0.87 k/uL [facility] Monocytes/100 WBC (Bld) 6.3 % C [facility] Neutrophils (Bld) [#/Vol] 3.99 10*3/uL 1.45 - 7.50 k/uL [facility] Neutrophils/100 WBC (Bld) 64.1 % [facility] Nucleated RBC (Bld) [#/Vol] <0.01 k/uL [facility] Nucleated RBC/100 WBC (Bld) [Ratio] 0.0 /100 WBC [facility] Platelet mean volume (Bld) [Entitic vol] 9.0 fL 9.0 - 12.7 fL [facility] Platelets (Bld) [#/Vol] 184 10*3/uL 150 - 400 k/uL [facility] RBC (Bld) [#/Vol] 3.16 10*6/uL Low 3.90 - 5.2 0 m/uL [facility] WBC (Bld) [#/Vol] 6.22 10*3/uL 3.70 - 11. 00 k/uL [facility] URINE CULTUREon 06-30-2022 Bacteria identified Cx Nom (U) Invalid Interpretation Code [facility] UA DIP, URINE (POC)on 2022 BILIRUBIN UA (POCT) Negative Negative [facility] CLARITY UA (POCT) Cloudy [facility] COLOR UA (POCT) Yellow [facility] GLUCOSE UA (POCT) 250 mg/dL Abnormal Negative mg/dL [facility] HEMOGLOBIN/BLOOD UA (POCT) Moderate Abnormal Negative [facility] KETONE UA (POCT) Negative Negative mg/dL [facility] LEUKOCYTES UA (POCT) Moderate Abnormal Negative [facility] NITRITE UA (POCT) Negative Negative [facility] PH UA (POCT) 5.5 4.5 - 8.0 [facility] Protein Ql (U) >=300 Abnormal Negative mg/dL [facility] SPECIFIC GRAVITY UA (POCT) 1.020 1.005 - 1.030 [facility] UROBILINOGEN UA (POCT) 0.2 E.U./dL Rosa l E.U./dL [facility] MARYLU SCREENINGon 04-10-2022 [facility] XR KNEE GENERAL 4V AP BOTH/P A BOTH/LAT/MERC LEFTon 04-10-2022 [facility] UA DIP, URINE (POC)on 2022 BILIRUBIN UA (POCT) Negative Negative [facility] CLARITY UA (POCT) Cloudy [facility] COLOR UA (POCT) Yellow [facility] GLUCOSE UA (POCT) 100 mg/dL Abnormal Negative mg/dL [facility] HEMOGLOBIN/BLOOD UA (POCT) Moderate Abnormal Negative [facility] KETONE UA (POCT) Negative Negative mg/dL [facility] LEUKOCYTES UA (POCT) Large Abnormal Negative [facility] NITRITE UA (POCT) Positive Abnormal Negative [facility] PH UA (POCT) 7.0 4.5 - 8.0 [facility] Protein Ql (U) 100 mg/dL Abnormal Negative mg/dL [facility] SPECIFIC GRAVITY UA (POCT) 1.020 1.005 - 1.030 [facility] UROBILINOGEN UA (POCT) 0.2 E.U./dL Rosa l E.U./dL [facility] Influenza virus A and B RNA and SARS-CoV-2 (COVID-19) N gene panel CAR+probe (Resp)on 03-05-2022 FLUAV RNA CAR+probe Ql (Unsp spec) Negative Negative for Influenza A by RT-PCR [facility] FLUBV RNA CAR+probe Ql (Unsp spec) Negative Negative for Influenza B by RT-PCR [facility] SARS-CoV-2 (COVID-19) RNA CAR+probe Ql (Resp) SARS-CoV-2 (Agent of COVID-19) Not Detected by RT-PCR or equivalent method. Not Detected [facility] XR FOOT GENERAL 3V AP/LAT/OB L LEFTon 02-18-2022 [facility] XR Foot - left AP and Latera l and obliqueon 02-18-2022 IMPRESSION: 1. Mild degenerative changes in dorsal calcaneal enthesophyte. 2. Atherosclerotic disease. Archival Records Clerk: SHAMAR Transcribe Date/Time: Feb 18 2022 9:22A Dictated by : VIDA ROGERS MD This examination was interpreted and the report reviewed and electronically signed by: VIDA ROGERS MD on Feb 18 2022 9:24AM [facility] DIVISION OF RADIOLOGY * * *Final Report* [...] of the vasculature. DIVISION OF RADIOLOGY Provider, [facility] [place] - 02/18/2022 * * *Final Report* * [...] in dorsal calcaneal enthesophyte. 2. Atherosclerotic disease. Archival Records Clerk: SHAMAR Transcribe Date/Time: Feb 18 2022 9:22A Dictated by : VIDA ROGERS MD This examination was interpreted and the report reviewed and electronically signed by: VIDA ROGERS MD on Feb 18 2022 9:24AM EST [facility] Radiology Study observation (narrative) [facility] XR Foot - left AP and Latera l and obliqueOrdered By: Ccf Provider on 02-18-[address] [facility] [address] CHEST WO IVCONon 08-16-19 [facility] NM CARDIAC PERF STRESS/PHARM on 08-15-2021 Radiology Result ACTIONABLE Abnormal [facility] CBC W Auto Differential pane l (Bld)on 07-31-2021 Abs Immature Gran <0.03 <0.10 k/uL [facility] Basophils (Bld) [#/Vol] 0.05 10*3/uL <0.11 k/uL [facility] Basophils/100 WBC (Bld) 1.0 % [facility] Differential cell count method Nom (Bld) Auto [facility] Eosinophils (Bld) [#/Vol] 0.23 10*3/uL <0.46 k/uL [facility] Eosinophils/100 WBC (Bld) 4.6 % [facility] Erythrocyte distribution width (RBC) [Ratio] 12.8 % 11.5 - 15.0 % [facility] Hematocrit (Bld) [Volume fraction] 30.8 % Low 36.0 - 46.0 % [facility] Hemoglobin (Bld) [Mass/Vol] 9.3 g/dL Low 11.5 - 15.5 g/dL [facility] Immature Gran % 0.2 % [facility] Lymphocytes (Bld) [#/Vol] 1.83 10*3/uL 1.00 - 4.00 k/uL [facility] Lymphocytes/100 WBC (Bld) 36.5 % [facility] MCH (RBC) [Entitic mass] 29.2 pg 26. 0 - 34.0 pg [facility] MCHC (RBC) [Mass/Vol] 30.2 g/dL Low 30.5 - 36.0 g/dL [facility] MCV (RBC) [Entitic vol] 96.9 fL 80.0 - 100.0 fL [facility] Monocytes (Bld) [#/Vol] 0.33 10*3/uL <0.87 k/uL [facility] Monocytes/100 WBC (Bld) 6.6 % C [facility] Neutrophils (Bld) [#/Vol] 2.56 10*3/uL 1.45 - 7.50 k/uL [facility] Neutrophils/100 WBC (Bld) 51.1 % [facility] Nucleated RBC (Bld) [#/Vol] 10*3/uL <0.01 k/uL [facility] Nucleated RBC/100 WBC (Bld) [Ratio] 0.0 /100 WBC [facility] Platelet mean volume (Bld) [Entitic vol] 9.7 fL 9.0 - 12.7 fL [facility] Platelets (Bld) [#/Vol] 197 10*3/uL 150 - 400 k/uL [facility] RBC (Bld) [#/Vol] 3.18 10*6/uL Low 3.90 - 5.2 0 m/uL [facility] WBC (Bld) [#/Vol] 5.01 10*3/uL 3.70 - 11. 00 k/uL [facility] PROTEIN CREATININE RATIOon 0 07-31-2021 Protein/Creatinine (U) [Mass ratio] 0.6 mg/g High <0.2 [facility] PTH INTACT BLDon 07-31-2021 Parathyrin.intact [Mass/Vol] 473 pg/mL High 15 - 65 pg/mL [facility] Protein/Creatinine (U) [Mass ratio]on 07-31-2021 Creatinine (U) [Mass/Vol] 65.6 mg/dL 20.0 - 300.0 mg/dL [facility] Protein (U) [Mass/Vol] 39 mg/dL High 0 - 20 mg/dL [facility] Renal function 2000 panelon 07-31-2021 Albumin [Mass/Vol] 3.7 g/dL Low 3.9 - 4.9 g/dL [facility] Anion gap [Moles/Vol] 14 mmol/L 9 - 18 mmol/L [facility] Calcium [Mass/Vol] 8.5 mg/dL 8.5 - 10. 2 mg/dL [facility] Chloride [Moles/Vol] 104 mmol/L 97 - 10 5 mmol/L [facility] CO2 [Moles/Vol] 18 mmol/L Low 22 - 30 mmol/L [facility] Creatinine [Mass/Vol] 3.75 mg/dL High 0.58 - 0.96 mg/dL [facility] Estimated Glomerular Filtration Rate 14 mL/min/1.73m Low >=60 mL/min/1.73m [facility] Glucose [Mass/Vol] 172 mg/dL High 74 - 99 mg/dL [facility] Phosphate [Mass/Vol] 5.8 mg/dL High 2.7 - 4 .8 mg/dL [facility] Potassium [Moles/Vol] 4.8 mmol/L 3.7 - 5.1 mmol/L [facility] Sodium [Moles/Vol] 136 mmol/L 136 - 144 mmol/L [facility] Urea nitrogen [Mass/Vol] 38 mg/dL High 7 - 21 mg/d L [facility] VITAMIN D 25 HYDROXYon 07-31 25-hydroxyvitamin D3 [Mass/Vol] 51.0 ng/mL 31.0 - 80.0 ng/mL [facility] Absolute lymphocyte counton 07-29-2021 Lymphocytes Auto (Unsp spec) [#/Vol] 1.72 10*3/uL 0.83-4.51 [facility] Work Phone: Basophil percentageon 2021 Basophils/100 WBC (Bld) 0.7 % 0-1 [facility] Work Phone: [phone] Bilirubin [Mass/Vol] 0.30 mg/dL 0.20-1.00 [facility] Work Phone: Comment on above: For patients on eltr ombopag therapy, use of Dimension [place] TBIL is not recommended. Chloride [Moles/Vol] 111 mmol/L 98-107 [facility] Work Phone: Eosinophils/100 WBC (Bld) 3.7 % 0-5 [facility] Work Phone: Glucose [Mass/Vol] 196 mg/dL 74-106 [facility] Work Phone: Comment on above: Fasting Glucose resu lt greater than or equal to 126 mg/dL suggests DIABETES MELLITUS per A.D.A. criteria. Neutrophils (Bld) [#/Vol] 3.2 10*3/uL 2.0-7.7 [facility] Work Phone: Neutrophils/100 WBC (Bld) 56.8 % 47-70 [facility] Work Phone: [phone] Potassium [Moles/Vol] 4.8 mmol/L 3.5-5.1 [facility] Work Phone: [phone] Protein [Mass/Vol] 6.1 g/dL 6.4-8.2 [facility] Work Phone: [phone] Sodium [Moles/Vol] 140 mmol/L 136-145 [facility] Work Phone: WBC (Bld) [#/Vol] 5.7 10*3/uL 4.4-11.0 [facility] Work Phone: Blood erythrocytes count (nu mber/volume)on 07-29-2021 RBC (Bld) [#/Vol] 3.17 10*6/uL 4.2-5.4 [facility] Work Phone: Blood hemoglobin measurement (mass/volume)on 07-29-2021 Hemoglobin (Bld) [Mass/Vol] 9.8 g/dL 12.0-15.0 [facility] Work Phone: Blood lymphocytes/100 leukoc yteson 07-29-2021 Lymphocytes/100 WBC (Bld) 30.3 % 19-41 [facility] Work Phone: Blood monocytes/100 leukocyt eson 07-29-2021 Monocytes/100 WBC (Bld) 8.1 % 0-10 [facility] Work Phone: Blood platelet mean volumeon 07-29-2021 Platelet mean volume (Bld) [Entitic vol] 9.4 fL 6.2-12.0 [facility] Work Phone: Determination of erythrocyte mean corpuscular volume (MCV)on 07-29-2021 MCV (RBC) [Entitic vol] 97.5 fL 81-99 [facility] Work Phone: Hematocrit Auto (Bld) [Volum e fraction]on 07-29-2021 Hematocrit (Bld) [Volume fraction] 30.9 % 37-47 [facility] Work Phone: Laboratory - Chemistry and C hemistry - challengeon 07-29-2021 ALP [Catalytic activity/Vol] 85 U/L 45-117 [facility] Work Phone: ALT [Catalytic activity/Vol] 30 U/L 13-56 [facility] Work Phone: CO2 [Moles/Vol] 21.0 mmol/L 21.0-32.0 [facility] Work Phone: Globulin (S) [Mass/Vol] 3.2 g/dL 2.2-4.2 [facility] Work Phone: Magnesium [Mass/Vol] 1.7 mg/dL 1.6-2.6 [facility] Work Phone: Urea nitrogen/Creatinine [Mass ratio] 9.9 mg/mg 10-20 [facility] Work Phone: Laboratory - Hematology and Cell countson 07-29-2021 Erythrocyte distribution width (RBC) [Entitic vol] 45.4 fL 35.1-43.9 [facility] Work Phone: Erythrocyte distribution width (RBC) [Ratio] 12.8 % 11.6-14.6 [facility] Work Phone: Immature granulocytes/100 WBC (Bld) 0.400 % 0.0-0.9 [facility] Work Phone: Comment on above: IG% - Immature Granu locytes (promyelocytes, myelocytes and metamyelocytes) > 1% indicates that a LEFT SHIFT is Present. MCH (RBC) [Entitic mass] 30.9 pg 27.0-32.0 [facility] Work Phone: Nucleated RBC/100 WBC (Bld) [Ratio] 0 % 0-5 [facility] Work Phone: MCHC Auto (RBC) [Mass/Vol]on 07-29-2021 MCHC (RBC) [Mass/Vol] 31.7 g/dL 32-36 [facility] Work Phone: No Panel Informationon 07-29 Estimated Creatinine Clearance Calc 15.72 ml/min [facility] Work Phone: Estimated GFR (MDRD) Amer 15 mL/min >60 [facility] Work Phone: Comment on above: GFR Calc Estimated GFR (MDRD) Non-Af Amer 12 mL/min >60 [facility] Work Phone: Comment on above: Non- GFR Calc Platelets bldon 07-29-2021 Platelets (Bld) [#/Vol] 188 10*3/uL 150-450 [facility] Work Phone: Serum or plasma albumin joya urement (mass/volume)on 07-29-2021 Albumin [Mass/Vol] 2.9 g/dL 3.2-5.0 [facility] Work Phone: Serum or plasma albumin/glob ulin mass ratioon 07-29-2021 Albumin/Globulin [Mass ratio] 0.9 {ratio} 0.9-2.4 [facility] Work Phone: Serum or plasma calcium joya urement (mass/volume)on 07-29-2021 Calcium [Mass/Vol] 8.0 mg/dL 8.5-10.1 [facility] Work Phone: Serum or plasma creatinine m easurement (mass/volume)on 07-29-2021 Creatinine [Mass/Vol] 4.03 mg/dL 0.55-1.02 [facility] Work Phone: Comment on above: The validity of the calculated GFR & GFRAA in patients over 70 years has not been determined. Clinical correlation is essential. Serum or plasma urea nitroge n measurement (mass/volume)on 07-29-2021 Urea nitrogen [Mass/Vol] 40 mg/dL 7-18 [facility] Work Phone: Thin prep Papanicolaou smear with manual screeningon 07-29-2021 Thin prep Papanicolaou smear with manual screening 21 U/L 15-37 [facility] Work Phone: Thin prep Papanicolaou smear with manual screening 8 5-15 [facility] Work Phone: CT ABD/PEL WO IVCONon 2021 [facility] No Panel Informationon 10-31 IMPRESSION: Spondylosis of the cervical spine. No right-sided rib fractures identified. No acute cardiopulmonary disease identified. Archival Records Clerk: PSCKaity Transcribe Date/Time: Oct 31 2020 4:31P Dictated by : PURVI DIAZ MD This examination was interpreted and the report reviewed and electronically signed by: PURVI DIAZ MD on Oct 31 2020 4:33PM [facility] DIVISION OF RADIOLOGY Radiology Study observation (narrative) [facility] No Panel InformationOrdered By: Ccf Provider on 10-31-2020 [facility] XR Cervical spine AP and Lat eral [...] many years with no known injury (accession [id number]), Patient staes right lateral rib pain for a couple days with no known injury (accession [id number]) TECHNIQUE: Images: XR CERVICAL 4V AP/LAT/OBL, XR [...] fractures are seen. DIVISION OF RADIOLOGY Provider, [facility] [place] - 10/31/2020 * * *Final Report* * * DATE OF EXAM: Oct 31 2020 4:28PM [id number] [id number] - XR CERVICAL 4V AP/LAT/OBL / PROCEDURE REASON: Neck pain * * * * Physician Interpretation * * * * Chest, right ribs, cervical spine radiographs HISTORY: 55 years old Clinical information: Neck pain patient states neck pain for many years with no known injury (accession [id number]), Patient staes right lateral rib pain for a couple days with no known injury (accession [id number]) TECHNIQUE: Images: XR CERVICAL 4V AP/LAT/OBL, XR [...] fractures identified. No acute cardiopulmonary disease identified. Archival Records Clerk: PSCB Transcribe Date/Time: Oct 31 2020 4:31P Dictated by : PURVI DIAZ MD This examination was interpreted and the report reviewed and electronically signed by: PURVI DIAZ MD on Oct 31 2020 4:33PM [facility] XR Ribs - right Views and [facility] PAon 10-31-2020 * * *Final Report* * [...] many years with no known injury (accession [id number]), Patient staes right lateral rib pain for a couple days with no known injury (accession [id number]) TECHNIQUE: Images: XR CERVICAL 4V AP/LAT/OBL, XR [...] fractures are seen. DIVISION OF RADIOLOGY Provider, [facility] - 10/31/2020 * * *Final Report* * [...] many years with no known injury (accession [id number]), Patient staes right lateral rib pain for a couple days with no known injury (accession [id number]) TECHNIQUE: Images: XR CERVICAL 4V AP/LAT/OBL, XR [...] fractures identified. No acute cardiopulmonary disease identified. Archival Records Clerk: SHAMAR Transcribe Date/Time: Oct 31 2020 4:31P Dictated by : PURVI DIAZ MD This examination was interpreted and the report reviewed and electronically signed by: PURVI DIAZ MD on Oct 31 2020 4:33PM [facility] CT HEAD OR BRAIN W/O CONTRAS Ton [...] AM Sign Date: 07/23/2017 12:34:39 AM Normal [facility] [place] MAXILLOFACIAL W/O CONTRAS Ton 07-23-2017 CT [...] AM Sign Date: 07/23/2017 12:42:04 AM Normal [facility] [place] SPINE CERVICAL W/O CONTRA STon 07-23-2017 [...] AM Sign Date: 07/23/2017 12:43:50 AM Normal [facility] Note on 07-23-2017 [facility] Note Normal [facility] Pat Eduon 07-23-2017 Pat Edu Normal [facility]ly [facility] Patient Summary Documentson 07-23-2017 Patient Summary Documents Normal [facility] XR KNEE THREE VIEWS LEFTon 0 07-23-2017 [...] AM Sign Date: 07/23/2017 12:33:28 AM Normal [facility] XR KNEE THREE VIEWS RIGHTon 07-23-2017 XR [...] AM Sign Date: 07/23/2017 12:32:09 AM Normal [facility] Vital Signs Date Time Vital Sign Value Performing Clinician Facility 09-12-2024 13:20-0400 Diastolic blood pressure 60 mm[Hg] Liz Ferreira MD Work Phone: [facility] 09-12-2024 13:20-0400 Heart rate 77 /min Liz Ferreira MD Work Phone: [facility] 09-12-2024 13:20-0400 Respiratory rate 18 /min Liz Ferreira MD Work Phone: [facility] 09-12-2024 13:20-0400 SaO2% (BldA) [Mass fraction] 100 % Liz Ferreira MD Work Phone: [facility] 09-12-2024 13:20-0400 Systolic blood pressure 102 mm[Hg] Liz Ferreira MD Work Phone: [facility] 09-06-2024 23:25-0400 Body temperature 97.8 [degF] Dr. Ignacio Cheatham MD Work Phone: 7(991)078-743754 [place] [address] 09-06-2024 23:25-0400 Diastolic blood pressure 80 mm[Hg] Dr. Ignacio Cheatham MD Work Phone: 4(506)316-086854 [place] [address] 09-06-2024 23:25-0400 Heart rate 102 /min Dr. Ignacio Cheatham MD Work Phone: 0(025)488-446954 [place] [address] 09-06-2024 23:25-0400 Respiratory rate 16 /min Dr. Ignacio Cheatham MD Work Phone: 2(724)723-562554 [place] [address] 09-06-2024 23:25-0400 SaO2% (BldA) [Mass fraction] 95 % Dr. Ignacio Cheatham MD Work Phone: 0(480)325-909258 [place] [address] 09-06-2024 23:25-0400 Systolic blood pressure 162 mm[Hg] Dr. Ignacio Cheatham MD Work Phone: 5(537)455-389858 [place] [address] 09-06-2024 18:39-0400 Body height 172.[address] Ignacio Cheatham MD Work Phone: 7(737)688-151154 [place] [address] 09-06-2024 18:39-0400 Body mass index (BMI) [Ratio] 29.2 kg/m2 Dr. Ignacio Cheatham MD Work Phone: 1(502)075-155154 [place] [address] 09-06-2024 18:39-0400 Body weight 87.[address] Ignacio Cheatham MD Work Phone: 6(860)483-029554 [place] [address] 08-10-2024 13:25-0400 Body mass index (BMI) [Ratio] 28.49 kg/m2 Hever Praisler-Wood [employer] Work Phone: [facility] 08-10-2024 13:25-0400 Body temperature 98.01 [degF] Hever Praisler-Wood [employer] Work Phone: [facility] 08-10-2024 13:25-0400 Body weight 85 kg Hever Praisler-Wood [employer]DER [employer] Work Phone: [facility] 08-10-2024 13:25-0400 Diastolic blood pressure 80 mm[Hg] Hever Praisler-Wood [employer]DER [employer] Work Phone: [facility] 08-10-2024 13:25-0400 Heart rate 100 /min Hever Praisler-Wood [employer]DER [employer] Work Phone: [facility] 08-10-2024 13:25-0400 Respiratory rate 20 /min Hever Praisler-Wood [employer]DER [employer] Work Phone: [facility] 08-10-2024 13:25-0400 SaO2% (BldA) [Mass fraction] 97 % Hever Praisler-Wood [employer]DER [employer] Work Phone: [facility] 08-10-2024 13:25-0400 Systolic blood pressure 158 mm[Hg] Hever Praisler-Wood [employer] Work Phone: [facility] 07-06-2024 13:32-0400 Body mass index (BMI) [Ratio] 27.99 kg/m2 Trinidad Cioce [employer]DER [employer]MER.[employer] Work Phone: [facility] 07-06-2024 13:32-0400 Body temperature 98.29 [degF] Trinidad Cioce [employer]DER [employer]MER.[employer] Work Phone: [facility] 07-06-2024 13:32-0400 Body weight 83.5 kg Trinidad Cioce [employer]DER [employer]MER.[employer] Work Phone: [facility] 07-06-2024 13:32-0400 Diastolic blood pressure 84 mm[Hg] Trinidad Cioce [employer]DER TR[employer]MER.[employer] Work Phone: [facility] 07-06-2024 13:32-0400 Heart rate 95 /min Trinidad Cioce [employer]OLDER [employer]MER.[employer] Work Phone: [facility] 07-06-2024 13:32-0400 Respiratory rate 14 /min Trinidad Cioce [employer]OLDER TR[employer]MER.[employer] Work Phone: [facility] 07-06-2024 13:32-0400 SaO2% (BldA) [Mass fraction] 98 % Trinidad Cioce [employer]OLDER [employer]MER.[employer] Work Phone: [facility] 07-06-2024 13:32-0400 Systolic blood pressure 160 mm[Hg] Trinidad Cioce [employer]DER TRIMMER.[employer] Work Phone: [facility] 07-04-2024 14:16-0400 Body height 172.7 cm Alondra Juliet [employer]DER [employer]MER.[employer] Work Phone: [facility] 07-04-2024 14:16-0400 Body mass index (BMI) [Ratio] 27.96 kg/m2 Alondra Juliet [employer]DER [employer]MER.[employer] Work Phone: [facility] 07-04-2024 14:16-0400 Body weight 83.4 kg Alondra Juliet [employer]OLDER [employer]MER.[employer] Work Phone: [facility] 07-04-2024 14:16-0400 Diastolic blood pressure 94 mm[Hg] Alondra Juliet MOLDER TRIMMER.[employer] Work Phone: [facility] 07-04-2024 14:16-0400 Heart rate 107 /min Alondra Juliet [employer]DER [employer]MER.[employer] Work Phone: [facility] 07-04-2024 14:16-0400 Respiratory rate 16 /min Alondra Juliet [employer]OLDER [employer]MER.[employer] Work Phone: [facility] 07-04-2024 14:16-0400 SaO2% (BldA) [Mass fraction] 97 % Alondra Juliet [employer]DER [employer]MER.[employer] Work Phone: [facility] 07-04-2024 14:16-0400 Systolic blood pressure 187 mm[Hg] Alondra Juliet [employer]OLDER [employer]MER.[employer] Work Phone: [facility] 06-01-2024 16:55-0400 Body mass index (BMI) [Ratio] 28.34 kg/m2 Tresa Marcum [employer]DER [employer]MER.[employer] Work Phone: [facility] 06-01-2024 16:55-0400 Body weight 84.55 kg Tresa Marcum [employer]OLDER [employer]MER.[employer] Work Phone: [facility] 06-01-2024 13:35-0400 Diastolic blood pressure 92 mm[Hg] Tresa Marcum MOLDER TR[employer]MER.[employer] Work Phone: [facility] 06-01-2024 13:35-0400 Heart rate 95 /min Tresa Marcum MOLDER TR[employer]MER.[employer] Work Phone: [facility] 06-01-2024 13:35-0400 Respiratory rate 16 /min Tresa Marcum [employer]OLDER TRIMMER.[employer] Work Phone: [facility] 06-01-2024 13:35-0400 SaO2% (BldA) [Mass fraction] 98 % Tresa Marcum MOLDER [employer]IMMER.[employer] Work Phone: [facility] 06-01-2024 13:35-0400 Systolic blood pressure 184 mm[Hg] Tresa Marcum MOLDER TRIMMER.[employer] Work Phone: [facility] 04-15-2024 12:29-0500 Body mass index (BMI) [Ratio] 29.16 kg/m2 Sha Ray [employer]DER TR[employer]MER.[employer] Work Phone: [facility] 04-15-2024 12:29-0500 Body temperature 98.01 [degF] Sha Ray [employer]DER TR[employer]MER.[employer] Work Phone: [facility] 04-15-2024 12:29-0500 Body weight 87 kg Sha Ray [employer]OLDER TR[employer]MER.[employer] Work Phone: [facility] 04-15-2024 12:29-0500 Diastolic blood pressure 80 mm[Hg] Sha Pendlebury [employer]OLDER TR[employer]MER.[employer] Work Phone: [facility] Comment on above: checked BP x 2 04-15-2024 12:29-0500 Heart rate 96 /min Sha Pendlebury [employer]OLDER [employer]MER.[employer] Work Phone: [facility] 04-15-2024 12:29-0500 Respiratory rate 20 /min Sha Pendlebury MOLDER TRIMMER.[employer] Work Phone: [facility] 04-15-2024 12:29-0500 SaO2% (BldA) [Mass fraction] 99 % [facility] Work Phone: [facility] 04-15-2024 12:29-0500 Systolic blood pressure 173 mm[Hg] Sha Pendlebury MOLDER TRIMMER.[employer] Work Phone: [facility] Comment on above: checked BP x 2 03-25-2024 10:56-0500 Body height 172.7 cm Ignacio Cheatham MD Work Phone: [facility] 03-25-2024 10:56-0500 Body mass index (BMI) [Ratio] 28.79 kg/m2 Ignacio Cheatham MD Work Phone: [facility] 03-25-2024 10:56-0500 Body weight 85.9 kg Ignacio Cheatham MD Work Phone: [facility] 03-25-2024 10:56-0500 Diastolic blood pressure 84 mm[Hg] Ignacio Cheatham MD Work Phone: [facility] 03-25-2024 10:56-0500 Heart rate 96 /min Ignacio Cheatham MD Work Phone: [facility] 03-25-2024 10:56-0500 SaO2% (BldA) [Mass fraction] 97 % Ignacio Cheatham MD Work Phone: [facility] 03-25-2024 10:56-0500 Systolic blood pressure 186 mm[Hg] Ignacio Cheatham MD Work Phone: [facility] 02-09-2024 11:15-0500 Diastolic blood pressure 84 mm[Hg] Saira Jackson DO Work Phone: [facility] Comment on above: pt said it is time to take bp meds 02-09-2024 11:15-0500 Heart rate 98 /min Saira Jackson DO Work Phone: [facility] 02-09-2024 11:15-0500 SaO2% (BldA) [Mass fraction] 99 % Saira Jackson DO Work Phone: [facility] 02-09-2024 11:15-0500 Systolic blood pressure 172 mm[Hg] Saira Jackson DO Work Phone: [facility] Comment on above: pt said it is time to take bp meds 12-25-2023 09:47-0400 Body mass index (BMI) [Ratio] 28.22 kg/m2 Ignacio Cheatham MD Work Phone: [facility] 12-25-2023 09:47-0400 Body weight 84.19 kg Ignacio Cheatham MD Work Phone: [facility] 12-25-2023 09:47-0400 Diastolic blood pressure 58 mm[Hg] Ignacio Cheatham MD Work Phone: [facility] 12-25-2023 09:47-0400 Heart rate 113 /min Ignacio Cheatham MD Work Phone: [facility] 12-25-2023 09:47-0400 SaO2% (BldA) [Mass fraction] 99 % Ignacio Cheatham MD Work Phone: [facility] 12-25-2023 09:47-0400 Systolic blood pressure 118 mm[Hg] Ignacio Cheatham MD Work Phone: [facility] 12-21-2023 14:49-0400 Body height 172.7 cm Dorene Murillo MD Work Phone: [facility] 12-21-2023 14:49-0400 Body mass index (BMI) [Ratio] 28.74 kg/m2 Dorene Murillo MD Work Phone: [facility] 12-21-2023 14:49-0400 Body weight 85.73 kg Dorene Murillo MD Work Phone: [facility] 12-21-2023 14:49-0400 Respiratory rate 16 /min Dorene Murillo MD Work Phone: [facility] 12-11-2023 11:17-0400 Body mass index (BMI) [Ratio] 28.79 kg/m2 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: [facility] 12-11-2023 11:17-0400 Body weight 85.9 kg 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: [facility] 12-11-2023 11:17-0400 Diastolic blood pressure 72 mm[Hg] 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: [facility] 12-11-2023 11:17-0400 Heart rate 102 /min 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: [facility] 12-11-2023 11:17-0400 Respiratory rate 16 /min 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: [facility] 12-11-2023 11:17-0400 SaO2% (BldA) [Mass fraction] 98 % 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: [facility] 12-11-2023 11:17-0400 Systolic blood pressure 130 mm[Hg] 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: [facility] 09-14-2023 09:30-0400 Body height 172.7 cm Dorene Murillo MD Work Phone: [facility] 09-14-2023 09:30-0400 Body mass index (BMI) [Ratio] 29.5 kg/m2 Dorene Murillo MD Work Phone: [facility] 09-14-2023 09:30-0400 Body weight 88 kg Dorene Murillo MD Work Phone: [facility] 09-14-2023 09:30-0400 Respiratory rate 18 /min Dorene Murillo MD Work Phone: [facility] 08-17-2023 11:28-0400 Body height 172.7 cm Dorene Murillo MD Work Phone: [facility] 08-17-2023 11:28-0400 Body mass index (BMI) [Ratio] 29.5 kg/m2 Dorene Murillo MD Work Phone: [facility] 08-17-2023 11:28-0400 Body weight 88 kg Dorene Murillo MD Work Phone: [facility] 08-17-2023 11:28-0400 Respiratory rate 18 /min Dorene Murillo MD Work Phone: [facility] 07-06-2023 11:58-0400 Body height 170.2 cm Dorene Murillo MD Work Phone: [facility] 07-06-2023 11:58-0400 Body mass index (BMI) [Ratio] 31.17 kg/m2 Dorene Murillo MD Work Phone: [facility] 07-06-2023 11:58-0400 Body weight 90.27 kg Dorene Murillo MD Work Phone: [facility] 07-06-2023 11:58-0400 Respiratory rate 20 /min Dorene Murillo MD Work Phone: [facility] 07-02-2023 15:21-0400 Body temperature 98.1 [degF] [facility] 07-02-2023 15:21-0400 Diastolic blood pressure 56 mm[Hg] [facility] 07-02-2023 15:21-0400 Heart rate 91 /min [facility] 07-02-2023 15:21-0400 Respiratory rate 16 /min [facility] 07-02-2023 15:21-0400 SaO2% (BldA) [Mass fraction] 99 % [facility] 07-02-2023 15:21-0400 Systolic blood pressure 135 mm[Hg] [facility] 07-02-2023 09:190400 Body height 172.72 cm [facility] 07-02-2023 09:19-0400 Body mass index (BMI) [Ratio] 30.5 kg/m2 [facility] 07-02-2023 09:19-0400 Body weight 91.12 kg [facility] 06-30-2023 02:17-0400 Body temperature 97.3 [degF] [facility] 06-30-2023 02:17-0400 Diastolic blood pressure 73 mm[Hg] [facility] 06-30-2023 02:17-0400 Heart rate 80 /min [facility] 06-30-2023 02:17-0400 Respiratory rate 18 /min [facility] 06-30-2023 02:17-0400 SaO2% (BldA) [Mass fraction] 96 % [facility] 06-30-2023 02:17-0400 Systolic blood pressure 140 mm[Hg] [facility] 06-29-2023 19:40-0400 Body height 172.72 cm [facility] 06-29-2023 19:40-0400 Body mass index (BMI) [Ratio] 32.7 kg/m2 [facility] 06-29-2023 19:40-0400 Body weight 97.6 kg [facility] 06-09-2023 11:54-0400 Body temperature 98.6 [degF] [facility] 06-09-2023 11:54-0400 Diastolic blood pressure 64 mm[Hg] [facility] 06-09-2023 11:54-0400 Heart rate 93 /min [facility] 06-09-2023 11:54-0400 Respiratory rate 18 /min [facility] 06-09-2023 11:54-0400 SaO2% (BldA) [Mass fraction] 99 % [facility] 06-09-2023 11:54-0400 Systolic blood pressure 153 mm[Hg] [facility] 06-09-2023 07:24-0400 Body mass index (BMI) [Ratio] 32.6 kg/m2 [facility] 06-09-2023 07:24-0400 Body weight 97.4 kg [facility] 06-04-2023 10:08-0400 Body height 172.72 cm [facility] 06-04-2023 10:08-0400 Body temperature 98 [degF] [facility] 06-04-2023 10:08-0400 Diastolic blood pressure 68 mm[Hg] [facility] 06-04-2023 10:08-0400 Heart rate 94 /min [facility] 06-04-2023 10:08-0400 Respiratory rate 14 /min [facility] 06-04-2023 10:08-0400 SaO2% (BldA) [Mass fraction] 98 % [facility] 06-04-2023 10:08-0400 Systolic blood pressure 159 mm[Hg] [facility] 03-09-2023 09:37-0500 SaO2% (BldA) [Mass fraction] 100 % Dr. Ignacio Cheatham Work Phone: [facility] 03-09-2023 09:34-0500 Body height 172.[address] Ignacio Cheatham Work Phone: [facility] 03-09-2023 09:34-0500 Body mass index (BMI) [Ratio] 34.9 kg/m2 Dr. Ignacio Cheatham Work Phone: [facility] 03-09-2023 09:34-0500 Body temperature 97.9 [degF] Dr. Ignacio Cheatham Work Phone: [facility] 03-09-2023 09:34-0500 Body weight 104.[address] Ignacio Cheatham Work Phone: [facility] 03-09-2023 09:34-0500 Diastolic blood pressure 78 mm[Hg] Dr. Ignacio Cheatham Work Phone: [facility] 03-09-2023 09:34-0500 Heart rate 102 /min Dr. Ignacio Cheatham Work Phone: [facility] 03-09-2023 09:34-0500 Respiratory rate 20 /min Dr. Ignacio Cheatham Work Phone: [facility] 03-09-2023 09:34-0500 Systolic blood pressure 172 mm[Hg] Dr. Ignacio Cheatham Work Phone: 3(800)301-857058 [place] [address] 02-04-2023 12:12-0500 Respiratory rate 14 /min Dr. Ignacio Cheatham Work Phone: 1(909)425-211054 [place] [address] 02-04-2023 09:49-0500 Body height 172.[address] Ignacio Cheatham Work Phone: 4(743)018-538654 [place] [address] 02-04-2023 09:49-0500 Body mass index (BMI) [Ratio] 31.6 kg/m2 Dr. Ignacio Cheatham Work Phone: 7(590)294-460154 [place] [address] 02-04-2023 09:49-0500 Body temperature 97.2 [degF] Dr. Ignacio Cheatham Work Phone: 0(952)580-019554 [place] [address] 02-04-2023 09:49-0500 Body weight 94.[address] Ignacio Cheatham Work Phone: 4(176)461-817854 [place] [address] 02-04-2023 09:49-0500 Diastolic blood pressure 49 mm[Hg] Dr. Ignacio Cheatham Work Phone: 3(708)220-585154 [place] [address] 02-04-2023 09:49-0500 Heart rate 97 /min Dr. Ignacio Cheatham Work Phone: 5(407)237-258454 [place] [address] 02-04-2023 09:49-0500 SaO2% (BldA) [Mass fraction] 90 % Dr. Ignacio Cheatham Work Phone: 6(905)983-323654 [place] [address] 02-04-2023 09:49-0500 Systolic blood pressure 114 mm[Hg] Dr. Ignacio Cheatham Work Phone: 6(222)700-997454 [place] [address] 01-29-2023 13:33-0500 Body temperature 96.7 [degF] Dr. Ignacio Cheatham Work Phone: 8(505)478-738154 [place] [address] 01-29-2023 13:33-0500 Diastolic blood pressure 66 mm[Hg] Dr. Ignacio Cheatham Work Phone: 7(761)299-780954 [place] [address] 01-29-2023 13:33-0500 Heart rate 90 /min Dr. Ignacio Cheatham Work Phone: 9(368)717-946554 [place] [address] 01-29-2023 13:33-0500 Respiratory rate 16 /min Dr. Ignacio Cheatham Work Phone: 2(936)795-443954 [place] [address] 01-29-2023 13:33-0500 SaO2% (BldA) [Mass fraction] 99 % Dr. Ignacio Cheatham Work Phone: 6(522)014-540854 [place] [address] 01-29-2023 13:33-0500 Systolic blood pressure 157 mm[Hg] Dr. Ignacio Cheatham Work Phone: 5(850)378-709754 [place] [address] 01-29-2023 12:10-0500 Body mass index (BMI) [Ratio] 33.7 kg/m2 Dr. Ignacio Cheatham Work Phone: 4(432)044-104154 [place] [address] 01-29-2023 12:10-0500 Body weight 100.[address] Ignacio Cheatham Work Phone: 3(763)943-746454 [place] [address] 01-26-2023 08:52-0500 Inhaled oxygen flow rate 2 L/min Dr. Ignacio Cheatham Work Phone: 3(539)782-724054 [place] [address] 01-25-2023 12:56-0500 Body height 172.[address] Ignacio Cheatham Work Phone: 7(535)619-184854 [place] [address] 01-19-2023 16:14-0500 Diastolic blood pressure 71 mm[Hg] Dr. Ignacio Cheatham Work Phone: 0(347)353-520754 [place] [address] 01-19-2023 16:14-0500 Heart rate 87 /min Dr. Ignacio Cheatham Work Phone: 4(295)599-408154 [place] [address] 01-19-2023 16:14-0500 Respiratory rate 17 /min Dr. Ignacio Cheatham Work Phone: 4(441)556-401054 [place] [address] 01-19-2023 16:14-0500 SaO2% (BldA) [Mass fraction] 98 % Dr. Ignacio Cheatham Work Phone: 6(901)255-070854 [place] [address] 01-19-2023 16:14-0500 Systolic blood pressure 167 mm[Hg] Dr. Ignacio Cheatham Work Phone: 9(783)840-130754 [place] [address] 01-19-2023 07:13-0500 Body height 172.[address] Ignacio Cheatham Work Phone: 4(291)545-732854 [place] [address] 01-19-2023 07:13-0500 Body mass index (BMI) [Ratio] 36.6 kg/m2 Dr. Ignacio Cheatham Work Phone: 1(220)291-243454 [place] [address] 01-19-2023 07:13-0500 Body temperature 97.7 [degF] Dr. Ignacio Cheatham Work Phone: 3(688)430-006154 [place] [address] 01-19-2023 07:13-0500 Body weight 109.[address] Ignacio Cheatham Work Phone: 8(279)970-215754 [place] [address] 01-15-2023 16:58-0500 Heart rate 67 /min Dr. Ignacio Cheatham Work Phone: 4(216)564-423254 [place] [address] 01-15-2023 16:58-0500 Respiratory rate 15 /min Dr. Ignacio Cheatham Work Phone: 9(379)437-305354 [place] [address] 01-15-2023 16:58-0500 SaO2% (BldA) [Mass fraction] 97 % Dr. Ignacio Cheatham Work Phone: 0(449)267-536154 [place] [address] 01-15-2023 11:39-0500 Body height 172.[address] Ignacio Cheatham Work Phone: 7(541)089-100954 [place] [address] 01-15-2023 11:39-0500 Body mass index (BMI) [Ratio] 31.6 kg/m2 Dr. Ignacio Cheatham Work Phone: 7(116)805-901554 [place] [address] 01-15-2023 11:39-0500 Body temperature 97.4 [degF] Dr. Ignacio Cheatham Work Phone: 7(450)786-653454 [place] [address] 01-15-2023 11:39-0500 Body weight 94.[address] Ignacio Cheatham Work Phone: 1(386)488-833654 [place] [address] 01-15-2023 11:39-0500 Diastolic blood pressure 65 mm[Hg] Dr. Ignacio Cheatham Work Phone: 8(853)094-975254 [place] [address] 01-15-2023 11:39-0500 Systolic blood pressure 137 mm[Hg] Dr. Ignacio Cheatham Work Phone: 5(637)898-414954 [place] [address] 01-13-2023 14:29-0500 Diastolic blood pressure 79 mm[Hg] Dr. Ignacio Cheatham Work Phone: 7(392)200-192854 [place] [address] 01-13-2023 14:29-0500 Heart rate 68 /min Dr. Ignacio Cheatham Work Phone: 6(772)846-190854 [place] [address] 01-13-2023 14:29-0500 Respiratory rate 15 /min Dr. Ignacio Cheatham Work Phone: 2(073)696-272354 [place] [address] 01-13-2023 14:29-0500 SaO2% (BldA) [Mass fraction] 97 % Dr. Ignacio Cheatham Work Phone: 2(038)440-522354 [place] [address] 01-13-2023 14:29-0500 Systolic blood pressure 122 mm[Hg] Dr. Ignacio Cheatham Work Phone: 7(376)394-905654 [place] [address] 01-13-2023 12:34-0500 Body mass index (BMI) [Ratio] 32.1 kg/m2 Dr. Ignacio Cheatham Work Phone: 3(400)978-046754 [place] [address] 01-13-2023 12:34-0500 Body weight 96.[address] Ignacio Cheatham Work Phone: 0(834)180-387054 [place] [address] 01-13-2023 12:03-0500 Body height 172.[address] Ignacio Cheatham Work Phone: 8(098)471-080054 [place] [address] 01-13-2023 12:03-0500 Body temperature 96.7 [degF] Dr. Ignacio Cheatham Work Phone: 1(948)910-500754 [place] [address] 11-19-2022 11:29-0400 Body temperature 98.01 [degF] Kimberli Saleem MOLDER TRIMMER.[employer] Work Phone: [facility] 11-19-2022 11:29-0400 Body weight 98.61 kg Kimberli Saleem MOLDER TRIMMER.[employer] P[employer] Work Phone: [facility] 11-19-2022 11:29-0400 Diastolic blood pressure 80 mm[Hg] Kimberli Saleem MOLDER TRIMMER.[employer] P[employer]ER Work Phone: [facility] 11-19-2022 11:29-0400 Heart rate 111 /min Kimberli Saleem MOLDER TRIMMER.[employer] P[employer]ER Work Phone: [facility] 11-19-2022 11:29-0400 Respiratory rate 18 /min Kimberli Saleem MOLDER TRIMMER.[employer] P[employer] Work Phone: [facility] 11-19-2022 11:29-0400 SaO2% (BldA) [Mass fraction] 97 % Kimberli Saleem MOLDER TRIMMER.BLOCK PAVER Work Phone: [facility] 11-19-2022 11:29-0400 Systolic blood pressure 146 mm[Hg] Kimberli Saleem MOLDER TRIMMER.BLOCK PAVER Work Phone: [facility] 11-07-2022 12:36-0400 Body weight 99.61 kg Brooke Podlogar MOLDER TRIMMER.BLOCK PAVER Work Phone: [facility] 11-07-2022 12:36-0400 Diastolic blood pressure 60 mm[Hg] Brooke Podlogar MOLDER TRIMMER.[employer] PAVER Work Phone: [facility] 11-07-2022 12:36-0400 Heart rate 91 /min Brooke Podlogar MOLDER TRIMMER.BLOCK P[employer]ER Work Phone: [facility] 11-07-2022 12:36-0400 Respiratory rate 16 /min Brooke Podlogar MOLDER TRIMMER.BLOCK PAVER Work Phone: [facility] 11-07-2022 12:36-0400 SaO2% (BldA) [Mass fraction] 97 % Brooke Podlogar MOLDER TRIMMER.[employer] PAVER Work Phone: [facility] 11-07-2022 12:36-0400 Systolic blood pressure 142 mm[Hg] Brooke Podlogar MOLDER TRIMMER.BLOCK PAVER Work Phone: [facility] 10-30-2022 11:27-0400 Diastolic blood pressure 65 mm[Hg] Dr. Ignacio Cheatham Work Phone: [facility] 10-30-2022 11:27-0400 Heart rate 79 /min Dr. Ignacio Cheatham Work Phone: [facility] 10-30-2022 11:27-0400 Respiratory rate 17 /min Dr. Ignacio Cheatham Work Phone: [facility] 10-30-2022 11:27-0400 Systolic blood pressure 135 mm[Hg] Dr. Ignacio Cheatham Work Phone: [facility] 10-30-2022 07:17-0400 Body height 172.[address] Ignacio Cheatham Work Phone: [facility] 10-30-2022 07:17-0400 Body mass index (BMI) [Ratio] 34.8 kg/m2 Dr. Ignacio Cheatham Work Phone: [facility] 10-30-2022 07:17-0400 Body temperature 96.5 [degF] Dr. Ignacio Cheatham Work Phone: [facility] 10-30-2022 07:17-0400 Body weight [address] Ignacio Cheatham Work Phone: [facility] 10-20-2022 14:13-0400 Body weight 101.15 kg Ignacio Cheatham MD Work Phone: [facility] 10-20-2022 14:13-0400 Diastolic blood pressure 72 mm[Hg] Ignacio Cheatham MD Work Phone: [facility] 10-20-2022 14:13-0400 Heart rate 93 /min Igancio Cheatham MD Work Phone: [facility] 10-20-2022 14:13-0400 SaO2% (BldA) [Mass fraction] 98 % Ignacio Cheatham MD Work Phone: [facility] 10-20-2022 14:13-0400 Systolic blood pressure 152 mm[Hg] Ignacio Cheatham MD Work Phone: [facility] 10-15-2022 17:32-0400 Body mass index (BMI) [Ratio] 75.2 kg/m2 Dr. Ignacio Cheatham Work Phone: [facility] 10-15-2022 17:32-0400 Body weight 224.[address] Ignacio Cheatham Work Phone: 6(732)558-431458 [place] [address] 10-15-2022 17:11-0400 Body height 172.[address] Ignacio Cheatham Work Phone: 5(630)813-192854 [place] [address] 10-15-2022 17:11-0400 Body temperature 97.7 [degF] Dr. Ignacio Cheatham Work Phone: 8(482)402-108554 [place] [address] 10-15-2022 17:11-0400 Diastolic blood pressure 57 mm[Hg] Dr. Ignacio Cheatham Work Phone: 7(702)044-323654 [place] [address] 10-15-2022 17:11-0400 Heart rate 98 /min Dr. Ignacio Cheatham Work Phone: 0(224)127-665954 [place] [address] 10-15-2022 17:11-0400 Respiratory rate 18 /min Dr. Ignacio Cheatham Work Phone: 3(008)902-383454 [place] [address] 10-15-2022 17:11-0400 SaO2% (BldA) [Mass fraction] 98 % Dr. Ignacio Cheatham Work Phone: 0(193)026-593154 [place] [address] 10-15-2022 17:11-0400 Systolic blood pressure 131 mm[Hg] Dr. Ignacio Cheatham Work Phone: 7(031)071-575454 [place] [address] 09-12-2022 13:32-0400 Body temperature 98 [degF] Dr. Ignacio Cheatham Work Phone: 0(746)862-274254 [place] [address] 09-12-2022 13:32-0400 Diastolic blood pressure 54 mm[Hg] Dr. Ignacio Cheatham Work Phone: 5(470)400-528154 [place] [address] 09-12-2022 13:32-0400 Heart rate 88 /min Dr. Ignacio Cheatham Work Phone: 1(523)709-368354 [place] [address] 09-12-2022 13:32-0400 Respiratory rate 16 /min Dr. Igncaio Cheatham Work Phone: 3(349)423-549254 [place] [address] 09-12-2022 13:32-0400 SaO2% (BldA) [Mass fraction] 99 % Dr. Ignacio Cheatham Work Phone: 3(029)415-295454 [place] [address] 09-12-2022 13:32-0400 Systolic blood pressure 156 mm[Hg] Dr. Ignacio Cheatham Work Phone: [facility] 09-12-2022 06:00-0400 Body mass index (BMI) [Ratio] 35.4 kg/m2 Dr. Ignacio Cheatham Work Phone: [facility] 09-12-2022 06:00-0400 Body weight 105.[address] Ignacio Cheatham Work Phone: [facility] 09-10-2022 04:02-0400 Body height 172.[address] Ignacio Cheatham Work Phone: [facility] 09-09-2022 16:11-0400 Diastolic blood pressure 92 mm[Hg] Ignacio Cheatham MD Work Phone: [facility] 09-09-2022 16:11-0400 Heart rate 105 /min Ignacio Cheatham MD Work Phone: [facility] 09-09-2022 16:11-0400 SaO2% (BldA) [Mass fraction] 96 % Ignacio Cheatham MD Work Phone: [facility] 09-09-2022 16:11-0400 Systolic blood pressure 160 mm[Hg] Ignacio Cheatham MD Work Phone: [facility] 09-07-2022 14:57-0400 Diastolic blood pressure 74 mm[Hg] [facility] 09-07-2022 14:57-0400 Heart rate 80 /min [facility] 09-07-2022 14:57-0400 Respiratory rate 16 /min [facility] 09-07-2022 14:57-0400 SaO2% (BldA) [Mass fraction] 99 % [facility] 09-07-2022 14:57-0400 Systolic blood pressure 177 mm[Hg] [facility] 09-07-2022 13:46-0400 Body height 172.72 cm [facility] 09-07-2022 13:46-0400 Body mass index (BMI) [Ratio] 35.9 kg/m2 [facility] 09-07-2022 13:46-0400 Body temperature 97.5 [degF] [facility] 09-07-2022 13:46-0400 Body weight 107.2 kg [facility] 07-31-2022 09:59-0400 Body temperature 98.2 [degF] Sha Ray MOLDER TRIMMER.BLOCK PAVER Work Phone: [facility] 07-31-2022 09:59-0400 Body weight 106.41 kg Sha Ray MOLDER TRIMMER.BLOCK PAVER Work Phone: [facility] 07-31-2022 09:59-0400 Diastolic blood pressure 92 mm[Hg] Sha Ray MOLDER TRIMMER.BLOCK PAVER Work Phone: [facility] 07-31-2022 09:59-0400 Heart rate 95 /min Sha Ray MOLDER TRIMMER.BLOCK PAVER Work Phone: [facility] 07-31-2022 09:59-0400 Respiratory rate 16 /min Sha Ray MOLDER TRIMMER.BLOCK PAVER Work Phone: [facility] 07-31-2022 09:59-0400 SaO2% (BldA) [Mass fraction] 98 % Sha Ray MOLDER TRIMMER.BLOCK PAVER Work Phone: [facility] 07-31-2022 09:59-0400 Systolic blood pressure 158 mm[Hg] Sha Ray MOLDER TRIMMER.BLOCK PAVER Work Phone: [facility] 06-30-2022 15:26-0400 Body height 172.7 cm Pacc 1 Work Phone: [facility] 06-30-2022 15:26-0400 Body temperature 97.11 [degF] Pacc 1 Work Phone: [facility] 06-30-2022 15:26-0400 Body weight 107.5 kg Pacc 1 Work Phone: [facility] 06-30-2022 15:26-0400 Diastolic blood pressure 86 mm[Hg] Pacc 1 Work Phone: [facility] 06-30-2022 15:26-0400 Heart rate 89 /min Pacc 1 Work Phone: [facility] 06-30-2022 15:26-0400 Respiratory rate 16 /min Pacc 1 Work Phone: [facility] 06-30-2022 15:26-0400 SaO2% (BldA) [Mass fraction] 96 % Pacc 1 Work Phone: [facility] 06-30-2022 15:26-0400 Systolic blood pressure 138 mm[Hg] Pacc 1 Work Phone: [facility] 06-24-2022 10:13-0400 Body temperature 97.7 [degF] Kirsten Athy PA-C Work Phone: [facility] 06-24-2022 10:13-0400 Body weight 108.41 kg Kirsten Athy PA-C Work Phone: [facility] 06-24-2022 10:13-0400 Diastolic blood pressure 78 mm[Hg] Kirsten Athy PA-C Work Phone: [facility] 06-24-2022 10:13-0400 Heart rate 90 /min Kirsten Athy PA-C Work Phone: [facility] 06-24-2022 10:13-0400 Respiratory rate 18 /min Kirsten Athy PA-C Work Phone: [facility] 06-24-2022 10:13-0400 SaO2% (BldA) [Mass fraction] 95 % Kirsten Athy PA-C Work Phone: [facility] 06-24-2022 10:13-0400 Systolic blood pressure 132 mm[Hg] Kirsten Athy PA-C Work Phone: [facility] 05-26-2022 14:44-0400 Body weight 105.51 kg Goldy Hunter DO Work Phone: [facility] 05-26-2022 14:44-0400 Diastolic blood pressure 89 mm[Hg] Goldy Hunter DO Work Phone: [facility] 05-26-2022 14:44-0400 Heart rate 106 /min Goldy Casasitz DO Work Phone: [facility] 05-26-2022 14:44-0400 Systolic blood pressure 162 mm[Hg] Goldy Hunter DO Work Phone: [facility] 04-02-2022 12:01-0500 Body temperature 97.81 [degF] Kirsten Athy PA-C Work Phone: [facility] 04-02-2022 12:01-0500 Body weight 104.69 kg Kirsten Athy PA-C Work Phone: [facility] 04-02-2022 12:01-0500 Diastolic blood pressure 72 mm[Hg] Kirsten Athy PA-C Work Phone: [facility] 04-02-2022 12:01-0500 Heart rate 124 /min Kirsten Athy PA-C Work Phone: [facility] 04-02-2022 12:01-0500 Respiratory rate 18 /min Kirsten Athy PA-C Work Phone: [facility] 04-02-2022 12:01-0500 SaO2% (BldA) [Mass fraction] 99 % Kirsten Athy PA-C Work Phone: [facility] 04-02-2022 12:01-0500 Systolic blood pressure 122 mm[Hg] Kirsten Athy PA-C Work Phone: [facility] 03-04-2022 14:17-0500 Body temperature 98.2 [degF] Hever Praisler-Wood MOLDER TRIMMER.BLOCK PAVER Work Phone: [facility] 03-04-2022 14:17-0500 Body weight 104.6 kg Hever Praisler-Wood MOLDER TRIMMER.BLOCK PAVER Work Phone: [facility] 03-04-2022 14:17-0500 Diastolic blood pressure 88 mm[Hg] Hever Praisler-Wood MOLDER TRIMMER.BLOCK PAVER Work Phone: [facility] 03-04-2022 14:17-0500 Heart rate 84 /min Hever Praisler-Wood MOLDER TRIMMER.BLOCK PAVER Work Phone: [facility] 03-04-2022 14:17-0500 Respiratory rate 16 /min Hever Praisler-Wood MOLDER TRIMMER.BLOCK PAVER Work Phone: [facility] 03-04-2022 14:17-0500 SaO2% (BldA) [Mass fraction] 98 % Hever Praisler-Wood MOLDER TRIMMER.BLOCK PAVER Work Phone: [facility] 03-04-2022 14:17-0500 Systolic blood pressure 148 mm[Hg] Hever Praisler-Wood MOLDER TRIMMER.BLOCK PAVER Work Phone: [facility] 02-18-2022 08:58-0500 Body temperature 96.91 [degF] Jimmy Hima MOLDER TRIMMER.BLOCK PAVER Work Phone: [facility] 02-18-2022 08:58-0500 Body weight 106.59 kg Jimmy Hima MOLDER TRIMMER.BLOCK PAVER Work Phone: [facility] 02-18-2022 08:58-0500 Diastolic blood pressure 84 mm[Hg] Jimmy Hima MOLDER TRIMMER.BLOCK PAVER Work Phone: [facility] 02-18-2022 08:58-0500 Heart rate 102 /min Jimmy Hima MOLDER TRIMMER.BLOCK PAVER Work Phone: [facility] 02-18-2022 08:58-0500 Respiratory rate 18 /min Jimmy Hima MOLDER TRIMMER.BLOCK PAVER Work Phone: [facility] 02-18-2022 08:58-0500 SaO2% (BldA) [Mass fraction] 100 % Jimmy Hima MOLDER TRIMMER.BLOCK PAVER Work Phone: [facility] 02-18-2022 08:58-0500 Systolic blood pressure 166 mm[Hg] Jimmy Hmia MOLDER TRIMMER.BLOCK PAVER Work Phone: [facility] 02-04-2022 13:57-0500 Body height 170 cm Goldy Hunter DO Work Phone: [facility] 02-04-2022 13:57-0500 Body weight 105.5 kg Goldy Hunter DO Work Phone: [facility] 02-04-2022 13:57-0500 Diastolic blood pressure 91 mm[Hg] Goldyfrancisca Hunter DO Work Phone: [facility] 02-04-2022 13:57-0500 Heart rate 97 /min Goldyfrancisca Hunter DO Work Phone: [facility] 02-04-2022 13:57-0500 Systolic blood pressure 180 mm[Hg] Goldyfrancisca Hunter DO Work Phone: [facility] 01-13-2022 14:00-0500 Body temperature 97.2 [degF] Treatment Wstr Work Phone: [facility] 01-13-2022 14:00-0500 Diastolic blood pressure 79 mm[Hg] Treatment Wstr Work Phone: [facility] 01-13-2022 14:00-0500 Heart rate 92 /min Treatment Wstr Work Phone: [facility] 01-13-2022 14:00-0500 Respiratory rate 20 /min Treatment Wstr Work Phone: [facility] 01-13-2022 14:00-0500 SaO2% (BldA) [Mass fraction] 99 % Treatment [facility]str Work Phone: [facility] 01-13-2022 14:00-0500 Systolic blood pressure 172 mm[Hg] Treatment Wstr Work Phone: [facility] 01-10-2022 14:38-0500 Body temperature 97.11 [degF] Treatment Wstr Work Phone: [facility] 01-10-2022 14:38-0500 Diastolic blood pressure 95 mm[Hg] Treatment Wstr Work Phone: [facility] 01-10-2022 14:38-0500 Heart rate 98 /min Treatment Wstr Work Phone: [facility] 01-10-2022 14:38-0500 Systolic blood pressure 160 mm[Hg] Treatment Wstr Work Phone: [facility] 01-08-2022 14:00-0500 Body temperature 97.11 [degF] Treatment Wstr Work Phone: [facility] 01-08-2022 14:00-0500 Diastolic blood pressure 89 mm[Hg] Treatment Wstr Work Phone: [facility] 01-08-2022 14:00-0500 Heart rate 100 /min Treatment Wstr Work Phone: [facility] 01-08-2022 14:00-0500 Systolic blood pressure 159 mm[Hg] Treatment Wstr Work Phone: [facility] 12-30-2021 09:11-0400 Body temperature 97.11 [degF] Treatment Wstr Work Phone: [facility] 12-30-2021 09:11-0400 Diastolic blood pressure 74 mm[Hg] Treatment Wstr Work Phone: [facility] 12-30-2021 09:11-0400 Heart rate 88 /min Treatment Wstr Work Phone: [facility] 12-30-2021 09:11-0400 Systolic blood pressure 143 mm[Hg] Treatment Wstr Work Phone: [facility] 12-18-2021 08:58-0400 Body height 170 cm Teagan Spencer MD Work Phone: [facility] 12-18-2021 08:58-0400 Body temperature 97.2 [degF] Teagan Spencer MD Work Phone: [facility] 12-18-2021 08:58-0400 Body weight 105.46 kg Teagan Spencer MD Work Phone: [facility] 12-18-2021 08:58-0400 Diastolic blood pressure 88 mm[Hg] Teagan Spencer MD Work Phone: [facility] 12-18-2021 08:58-0400 Heart rate 94 /min Teagan Spencer MD Work Phone: [facility] 12-18-2021 08:58-0400 SaO2% (BldA) [Mass fraction] 100 % Teagan Spencer MD Work Phone: [facility] 12-18-2021 08:58-0400 Systolic blood pressure 187 mm[Hg] Teagan Spencer MD Work Phone: [facility] 12-05-2021 13:02-0400 Body weight 103.42 kg Fab Cochran APRN.BLOCK PAVER Work Phone: [facility] 12-05-2021 13:02-0400 Diastolic blood pressure 97 mm[Hg] Fab Cochran APRN.BLOCK PAVER Work Phone: [facility] 12-05-2021 13:02-0400 Heart rate 87 /min Fab Cochran APRN.BLOCK PAVER Work Phone: [facility] 12-05-2021 13:02-0400 Systolic blood pressure 188 mm[Hg] Fab Cochran APRN.BLOCK PAVER Work Phone: [facility] 11-20-2021 15:45-0400 Body height 169.4 cm Respiratory Wstr Work Phone: [facility] 11-20-2021 15:45-0400 Body weight 108.86 kg Respiratory Wstr Work Phone: [facility] 10-15-2021 12:23-0400 Body temperature 98.71 [degF] Sha Ray APRN.BLOCK PAVER Work Phone: [facility] 10-15-2021 12:23-0400 Body weight 104.33 kg Sha Ray MOLDER TRIMMER.BLOCK PAVER Work Phone: [facility] 10-15-2021 12:23-0400 Diastolic blood pressure 68 mm[Hg] Sha Ray APRN.BLOCK PAVER Work Phone: [facility] 10-15-2021 12:23-0400 Heart rate 90 /min Sha Ray APRN.BLOCK PAVER Work Phone: [facility] 10-15-2021 12:23-0400 Respiratory rate 16 /min Sha Ray MOLDER TRIMMER.BLOCK P[employer]ER Work Phone: [facility] 10-15-2021 12:23-0400 SaO2% (BldA) [Mass fraction] 96 % Sha Ray MOLDER TRIMMER.[employer] P[employer]ER Work Phone: [facility] 10-15-2021 12:23-0400 Systolic blood pressure 136 mm[Hg] Sha Ray MOLDER TRIMMER.[employer] PAVER Work Phone: [facility] 10-02-2021 16:07-0400 Body weight 106.78 kg Rojelio Clark MD Work Phone: [facility] 10-02-2021 16:07-0400 Diastolic blood pressure 69 mm[Hg] Rojelio Clark MD Work Phone: [facility] 10-02-2021 16:07-0400 Heart rate 95 /min Rojelio Clark MD Work Phone: [facility] 10-02-2021 16:07-0400 SaO2% (BldA) [Mass fraction] 98 % Rojelio Clark MD Work Phone: [facility] 10-02-2021 16:07-0400 Systolic blood pressure 157 mm[Hg] Rojelio Clark MD Work Phone: [facility] 09-14-2021 09:43-0400 Body weight 104.78 kg Ignacio Cheatham MD Work Phone: [facility] 09-14-2021 09:43-0400 Diastolic blood pressure 72 mm[Hg] Ignacio Cheatham MD Work Phone: [facility] 09-14-2021 09:43-0400 Heart rate 88 /min Ignacio Cheatham MD Work Phone: [facility] 09-14-2021 09:43-0400 Systolic blood pressure 138 mm[Hg] Ignacio Cheatham MD Work Phone: [facility] 08-26-2021 16:10-0400 Diastolic blood pressure 82 mm[Hg] Jonathan Valenzuela MD Work Phone: [facility] 08-26-2021 16:10-0400 Heart rate 85 /min Jonathan Valenzuela MD Work Phone: [facility] 08-26-2021 16:10-0400 Systolic blood pressure 142 mm[Hg] Jonathan Valenzuela MD Work Phone: [facility] 08-26-2021 16:03-0400 Body height 172.7 cm Jonathan Valenzuela MD Work Phone: [facility] 08-26-2021 16:03-0400 Body weight 104.78 kg Jonathan Valenzuela MD Work Phone: [facility] 08-26-2021 16:03-0400 Respiratory rate 16 /min Jonathan Valenzuela MD Work Phone: [facility] 08-26-2021 16:03-0400 SaO2% (BldA) [Mass fraction] 100 % Jonathan Valenzuela MD Work Phone: [facility] 08-12-2021 15:01-0400 Body weight 102.51 kg Jonathan Valenzuela MD Work Phone: [facility] 08-12-2021 15:01-0400 Diastolic blood pressure 92 mm[Hg] Jonathan Valenzuela MD Work Phone: [facility] 08-12-2021 15:01-0400 Heart rate 101 /min Jonathan Valenzuela MD Work Phone: [facility] 08-12-2021 15:01-0400 Respiratory rate 18 /min Jonathan Valenzuela MD Work Phone: [facility] 08-12-2021 15:01-0400 SaO2% (BldA) [Mass fraction] 97 % Jonathan Valenzuela MD Work Phone: [facility] 08-12-2021 15:01-0400 Systolic blood pressure 140 mm[Hg] Jonathan Valenzuela MD Work Phone: [facility] 08-01-2021 14:38-0400 Diastolic blood pressure 86 mm[Hg] Fab Cochran APRN.CNP Work Phone: [facility] 08-01-2021 14:38-0400 Systolic blood pressure 142 mm[Hg] Fab Cochran MOLDER TRIMMER.[employer] P[employer]ER Work Phone: [facility] 08-01-2021 13:49-0400 Body weight 101.15 kg Fab Sammie MOLDER TRIMMER.BLOCK PAVER Work Phone: [facility] 08-01-2021 13:49-0400 Heart rate 85 /min Fabmateo Cochran MOLDER TRIMMER.BLOCK PAVER Work Phone: [facility] 07-30-2021 14:15-0400 Body weight 101.15 kg Ignacio Cheatham MD Work Phone: [facility] 07-30-2021 14:15-0400 Diastolic blood pressure 60 mm[Hg] Ignacio Cheatham MD Work Phone: [facility] 07-30-2021 14:15-0400 Heart rate 89 /min Ignacio Cheatham MD Work Phone: [facility] 07-30-2021 14:15-0400 Respiratory rate 16 /min Ignacio Cheatham MD Work Phone: [facility] 07-30-2021 14:15-0400 SaO2% (BldA) [Mass fraction] 98 % Ignacio Cheatham MD Work Phone: [facility] 07-30-2021 14:15-0400 Systolic blood pressure 110 mm[Hg] Ignacio Cheatham MD Work Phone: [facility] 07-29-2021 22:32-0400 Diastolic blood pressure 76 mm[Hg] [facility] Work Phone: 07-29-2021 22:32-0400 Systolic blood pressure 149 mm[Hg] [facility] Work Phone: 07-29-2021 21:08-0400 Heart rate 102 /min [facility] Work Phone: 07-29-2021 20:52-0400 Body height 172.72 cm [facility] Work Phone: 07-29-2021 20:52-0400 Body mass index (BMI) [Ratio] 34.9 kg/m2 [facility] Work Phone: 07-29-2021 20:52-0400 Body temperature 98.2 [degF] [facility] Work Phone: 07-29-2021 20:52-0400 Body weight 104.32 kg [facility] Work Phone: 07-29-2021 20:52-0400 Respiratory rate 15 /min [facility] Work Phone: 07-29-2021 20:52-0400 SaO2% (BldA) [Mass fraction] 97 % [facility] Work Phone: 07-03-2021 12:47-0400 Body height 172[facility] 12:47-0400 Body weight 104.33 kg Latricia [facility] 07-03-2021 11:04-0400 Body height 172.7 cm [facility] Work Phone: [facility] 07-03-2021 11:04-0400 Body temperature 97.2 [degF] [facility] Work Phone: [facility] 07-03-2021 11:04-0400 Body weight 104.33 kg [facility] Work Phone: [facility] 07-03-2021 11:04-0400 Diastolic blood pressure 80 mm[Hg] [facility] Work Phone: [facility] 07-03-2021 11:04-0400 Heart rate 91 /min [facility] Work Phone: [facility] 07-03-2021 11:04-0400 SaO2% (BldA) [Mass fraction] 99 % [facility] Work Phone: [facility] 07-03-2021 11:04-0400 Systolic blood pressure 175 mm[Hg] [facility] Work Phone: [facility] 07-03-2021 09:47-0400 Body height 172.7 cm [facility] Work Phone: [facility] 07-03-2021 09:47-0400 Body temperature 97.2 [degF] [facility] Work Phone: [facility] 07-03-2021 09:47-0400 Body weight 104.33 kg [facility] Work Phone: [facility] 07-03-2021 09:47-0400 Diastolic blood pressure 80 mm[Hg] [facility] Work Phone: [facility] 07-03-2021 09:47-0400 Heart rate 91 /min [facility] Work Phone: [facility] 07-03-2021 09:47-0400 SaO2% (BldA) [Mass fraction] 99 % [facility] Work Phone: [facility] 07-03-2021 09:47-0400 Systolic blood pressure 175 mm[Hg] [facility] Work Phone: [facility] 06-28-2021 09:59-0400 Body height 172.2 cm Rojelio Clark MD Work Phone: [facility] 06-28-2021 09:59-0400 Body weight 102.51 kg Rojelio Clark MD Work Phone: [facility] 06-28-2021 09:59-0400 Diastolic blood pressure 57 mm[Hg] Rojelio Clark MD Work Phone: [facility] 06-28-2021 09:59-0400 Heart rate 83 /min Rojelio Clark MD Work Phone: [facility] 06-28-2021 09:59-0400 Respiratory rate 16 /min Rojelio Clark MD Work Phone: [facility] 06-28-2021 09:59-0400 SaO2% (BldA) [Mass fraction] 99 % Rojelio Clark MD Work Phone: [facility] 06-28-2021 09:59-0400 Systolic blood pressure 137 mm[Hg] Rojelio Clark MD Work Phone: [facility] 06-26-2021 15:46-0400 Body weight 102.97 kg Ignacio Cheatham MD Work Phone: [facility] 06-26-2021 15:46-0400 Diastolic blood pressure 86 mm[Hg] Ignacio Cheatham MD Work Phone: [facility] 06-26-2021 15:46-0400 Heart rate 88 /min Ignacio Cheatham MD Work Phone: [facility] 06-26-2021 15:46-0400 Systolic blood pressure 154 mm[Hg] Ignacio Cheatham MD Work Phone: [facility] 06-03-2021 17:30-0400 Respiratory rate 20 /min Stacy Bogner PA-C Work Phone: [facility] 06-03-2021 14:59-0400 Body temperature 96.69 [degF] Stacy Bogner PA-C Work Phone: [facility] 06-03-2021 14:59-0400 Body weight 101.7 kg Stacy Bogner PA-C Work Phone: [facility] 06-03-2021 14:59-0400 Diastolic blood pressure 68 mm[Hg] Stacy Bogner PA-C Work Phone: [facility] 06-03-2021 14:59-0400 Heart rate 86 /min Stacy Bogner PA-C Work Phone: [facility] 06-03-2021 14:59-0400 SaO2% (BldA) [Mass fraction] 100 % Stacy Bogner PA-C Work Phone: [facility] 06-03-2021 14:59-0400 Systolic blood pressure 138 mm[Hg] Stacy Bogner PA-C Work Phone: [facility] Encounters Encounter Date Encounter Type Care Provider Facility Start: 09-26-2024 End: 09-28-2024 Refill Alondra Juliet MOLDER TRIMMER.BLOCK PAVER Work Phone: Neurology Comment on above: Refill Request Start: 09-19-2024 End: 09-22-2024 Telephone encounter Alondranisreen Chung MOLDER TRIMMER.BLOCK PAVER Work Phone: Neurology Comment on above: Insurance Authorizat ion Start: 09-12-2024 End: 09-12-2024 Patient encounter procedure Liz Ferreira MD Work Phone: Pulmonary Medicine Comment on above: Lung nodules (Primar y Dx); Mild intermittent asthma without complication (HCC); ESRD (end stage renal disease) on dialysis (HCC) Start: 09-12-2024 End: 09-12-2024 ambulatory LIZ EFRREIRA Facility:[facility] Start: 09-10-2024 End: 09-15-2024 Refill Alondra Juliet MOLDER TRIMMER.BLOCK PAVER Work Phone: Neurology Comment on above: Refill Request Start: 09-07-2024 End: 09-07-2024 Telephone encounter Ignacio Cheatham MD Work Phone: [facility] [place] Comment on above: Breathing Problem Start: 09-06-2024 End: 09-06-2024 Emergency department patient visit Dr. Ignacio Cheatham MD Work Phone: -Emergency Department Work Phone: Start: 09-06-2024 End: 09-06-2024 Telephone encounter Ignacio Cheatham MD Work Phone: [facility] [place] Comment on above: FYI-No Action Needed Start: 08-26-2024 End: 08-26-2024 ambulatory IGNACIO [facility] CRYSTAL RIVERO Facility:[facility] Start: 08-24-2024 ambulatory [facility] Facility:[facility] Start: 08-24-2024 Registered Recurring Tresa Marcum ROLLING MACHINE OPERATOR-C -Physical Therapy Work Phone: Start: 08-24-2024 End: 08-24-2024 Telephone encounter Chloe Ellington RN [facility] [employer] Tour Guide Start: 08-12-2024 End: 08-15-2024 Telephone encounter Saira [...] 08-04-2024 End: 08-04-2024 Telephone encounter Efra Galarza APRN.BLOCK PAVER Work Phone: [facility] [place] Comment on above: No Show (Missed #1) Start: 08-01-2024 End: 08-02-2024 Telephone encounter Ignacio Cheatham MD Work Phone: [facility] Comment on above: Insurance Authorizat ion (Trulicity) Start: 07-29-2024 End: 09-28-2024 Follow-up encounter Tresa Marcum APRN.BLOCK PAVER Work Phone: [facility] Comment on above: Results - Ct Start: 07-29-2024 End: 08-01-2024 Telephone encounter Alondra Chung APRN.BLOCK PAVER Work Phone: Neurology Comment on above: Patient Question Start: 07-28-2024 End: 08-03-2024 Telephone encounter Saira Jackson DO Work Phone: Vascular Surgery Comment on above: Results Start: 07-27-2024 End: 07-27-2024 ambulatory SAIRA JACKSON Facility:[facility] Start: 07-27-2024 End: 07-27-2024 Subsequent hospital visit by physician Ct [facility] (I-Stat) Work Phone: Cat Scan Comment on above: Lung nodules [R91.8] Start: 07-11-2024 End: 07-11-2024 ambulatory IGNACIO CHEATHAM Facility:[facility] Start: 07-11-2024 End: 07-11-2024 Patient encounter [...] APRN.CNP Work Phone: Endocrinology Comment on above: [facility] (Prior Auth) Start: 07-06-2024 End: 07-06-2024 [facility] Facility:[facility] Start: 07-05-2024 End: 07-05-2024 Telephone encounter Alondra Chung APRN.CNP Work Phone: Neurology Start: 07-04-2024 End: 07-04-2024 Patient encounter procedure Alondra Chung APRN.CNP Work Phone: Neurology Comment on above: RLS (restless legs s yndrome) (Primary Dx); Insomnia, unspecified type; CASSIE (obstructive sleep apnea); Stage 5 chronic kidney disease on chronic dialysis ([facility]) Start: 07-04-2024 End: 07-04-2024 ambulatory ALONDRA JULIET Facility:[facility] Start: 06-08-2024 End: 06-08-2024 Refill Tresa Marcum APRN.CNP Work Phone: [facility] [place] Comment on above: Refill Request Start: 06-01-2024 End: 06-01-2024 [facility] Facility:[facility] Start: 06-01-2024 End: 06-01-2024 Office outpatient visit 25 minutes Tresa Marcum APRN.CNP Work Phone: [facility] [place] Comment on above: Type 2 diabetes, con [...] Telephone encounter Ignacio Cheatham MD Work Phone: [facility] [place] Comment on above: Orders Start: 04-19-2024 End: 05-20-2024 ambulatory Ignacio Cheatham MD Work Phone: [facility] [place] Start: 04-15-2024 End: 04-15-2024 ambulatory [facility] Facility:[facility] Start: 04-15-2024 End: 04-15-2024 Office outpatient visit 25 minutes Sha Ray APRN.BLOCK PAVER Work Phone: [facility] Comment on above: Dental decay (Primar y Dx) Start: 04-06-2024 End: 08-16-2024 Telephone encounter Anat Lopez APRN.BLOCK PAVER Work Phone: [facility] Start: 04-02-2024 End: 04-02-2024 Emergency department patient visit [facility] Facility:[facility] Start: 03-30-2024 End: 04-08-2024 Telephone encounter Ignacio Cheatham MD Work Phone: [facility] [place] Comment on above: Patient Update Start: 03-28-2024 End: 03-28-2024 ambulatory No Pcp [facility]OLDER TR[facility]MER [facility] [place] Start: 03-28-2024 End: 03-28-2024 Patient encounter procedure No Pcp [facility]OLDER TRIMMER [facility] [place] Start: 03-25-2024 End: 03-25-2024 ambulatory [facility] Facility:[facility] Start: 03-25-2024 End: 03-25-2024 Patient encounter procedure Ignacio Cheatham MD Work Phone: [facility] [place] Comment on above: TIA (transient ische [...] Telephone encounter Ignacio Cheatham MD Work Phone: [facility] Comment on above: Medicaid Program For Start: 03-18-2024 ambulatory Ignacio Cheatham Facility:[facility] Start: 03-17-2024 End: 03-18-2024 ambulatory Hipolito Shepard Facility:[facility] Start: 03-04-2024 End: 03-04-2024 Telephone encounter Saira Jackson DO Work Phone: Vascular Surgery Start: 02-09-2024 End: 02-09-2024 ambulatory SAIRA JACKSON Facility:[facility] Start: 02-09-2024 End: 02-09-2024 Patient encounter procedure Saira Jackson DO Work Phone: Vascular Surgery Comment on above: Stenosis of arteriov enous graft, 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HCC) (Primary Dx); ESRD (end stage renal disease) (HCC) Start: 01-21-2024 End: 01-22-2024 Telephone encounter Ignacio Cheatham MD Work Phone: [facility] Comment on above: Forms Start: 01-20-2024 End: 01-20-2024 E-mail encounter from caregiver Yana Duque [facility] Work Phone: [facility] Start: 01-20-2024 End: 01-20-2024 Patient encounter procedure Yana Duque [facility] Work Phone: [facility] Comment on above: Virtual visit with barrett madrigal Start: 01-18-2024 End: 02-16-2024 Telephone encounter Ignacio Cheatham MD Work Phone: [facility] Comment on above: Referral Request Start: 01-12-2024 End: 01-18-2024 Telephone encounter Sha Myrick MD Work Phone: [facility] [place] Comment on above: Results Start: 01-04-2024 End: 01-05-2024 ambulatory IGNACIO CHEATHAM Facility:[facility] Start: 12-31-2023 End: 01-07-2024 [facility] Work Phone: Neurology Start: 12-25-2023 End: 12-25-2023 ambulatory IGNACIO MEYERSO Facility:[facility] Start: 12-25-2023 End: 12-25-2023 Patient encounter procedure Ignacio Cheatham MD Work Phone: [facility] [place] Comment on above: Type 2 diabetes, con trolled, with neuropathy ([facility]) (Primary Dx); Primary hypertension; Mixed hyperlipidemia; CASSIE (obstructive sleep apnea); ESRD (end stage renal disease) ([facility]); Proliferative diabetic retinopathy associated with type 2 diabetes mellitus, unspecified laterality, unspecified proliferative retinopathy type ([facility]); 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; Bipolar affective disorder, remission status unspecified ([facility]); Personal history of DVT (deep vein thrombosis) Start: 12-21-2023 End: 12-21-2023 Patient encounter procedure Dorene Murillo MD Work Phone: [facility] Comment on above: Closed complex fract ure of right tibia with nonunion (Primary Dx); Primary osteoarthritis of left knee Start: 12-21-2023 End: 12-21-2023 ambulatory DORENE MURILLO Facility:[facility] Start: 12-11-2023 End: 12-11-2023 Office outpatient visit 25 minutes Tresa Marcum APRN.CNP Work Phone: [facility] [place] Comment on above: Pathological fractur e of both tibia and fibula of right lower extremity due to other disease with delayed healing, subsequent encounter (Primary Dx); Anxiety; ESRD (end stage renal disease) ([facility]); Dental infection; Neuropathy; Mixed hyperlipidemia; Encounter for immunization; Type 2 diabetes mellitus with stage 4 chronic kidney disease, without long-term current use of insulin ([facility]); Gastroesophageal reflux disease, unspecified whether esophagitis present; CASSIE (obstructive sleep apnea) Start: 12-11-2023 End: 12-11-2023 ambulatory TRESA MARCUM Facility:[facility] Start: 12-07-2023 End: 12-07-2023 Telephone encounter Tresa Halillian GUERREROBLOCK PAVER Work Phone: [facility] [place] Comment on above: Appointment Start: 11-02-2023 End: 11-03-2023 Emergency department patient visit Minh Arroyo Facility:[facility] Start: 10-31-2023 End: 10-31-2023 Emergency department patient visit Sylvester Winston Facility:[facility] Start: 09-30-2023 ambulatory [facility] Facility:[facility] Start: 09-23-2023 ambulatory [facility] Facility:[facility] Start: 09-18-2023 Telephone encounter Dorene mayes MD Work Phone: [facility] Comment on above: Orders Start: 09-14-2023 End: 09-14-2023 Patient encounter procedure Dorene Murillo MD Work Phone: [facility] Comment on above: Closed complex fract ure of right tibia with nonunion (Primary Dx) Start: 09-14-2023 End: 09-14-2023 ambulatory DORENE MURILLO Facility:[facility] Start: 08-17-2023 End: 08-17-2023 Patient encounter procedure Dorene Murillo MD Work Phone: [facility] Comment on above: Closed complex fract ure of right tibia with nonunion (Primary Dx) Start: 08-17-2023 End: 08-17-2023 ambulatory DORENE MURILLO Facility:[facility] Start: 07-28-2023 Telephone encounter Dorene mayes MD Work Phone: [facility] Comment on above: Infection; Appointme nt Start: 07-13-2023 Refill Dorene joshi MD Work Phone: [facility] Comment on above: Refill Request Start: 07-10-2023 Refill Dorene joshi MD Work Phone: [facility] Comment on above: Orders; Refill Reque st Start: 07-06-2023 End: 07-06-2023 Patient encounter procedure Dorene Murillo MD Work Phone: [facility] Comment on above: Closed complex fract ure of right tibia with nonunion (Primary Dx) Start: 07-02-2023 End: 07-02-2023 ambulatory [facility] Work Phone: Start: 07-02-2023 End: 07-02-2023 Patient encounter procedure [facility] Work Phone: Start: 06-30-2023 Telephone encounter Dorene mayes MD Work Phone: [facility] Comment on above: Orders Start: 06-30-2023 Registered Referred [facility], Specimen Work Phone: Start: 06-29-2023 End: 06-30-2023 Emergency department patient visit [facility] Work Phone: Start: 06-29-2023 Refill Dorene joshi MD Work Phone: [facility] Comment on above: Refill Request Start: 06-24-2023 Telephone encounter Ignacio Cheatham MD Work Phone: [facility] Comment on above: [place] [employer] Spindle Start: 06-18-2023 Telephone encounter Dorene mayes MD Work Phone: [facility] Comment on above: Appointment Start: 06-12-2023 Telephone encounter Sylvester baptiste MD Work Phone: [facility] Comment on above: Requesting apt for p t Start: 06-10-2023 Telephone encounter Reagan mejia MD Work Phone: Orthopaedics Comment on above: Patient Update Start: 06-09-2023 End: 06-09-2023 Emergency department patient visit [facility] Work Phone: Start: 06-08-2023 Telephone encounter Ignacio Cheatham MD Work Phone: [facility] Comment on above: FYI Start: 06-04-2023 End: 06-04-2023 Emergency department patient visit [facility] Work Phone: Start: 05-20-2023 Telephone encounter Ignacio Cheatham MD Work Phone: [facility] Comment on above: Patient Update Start: 05-15-2023 End: 05-15-2023 Patient encounter procedure Frank Gerard Work Phone: Podiatry Comment on above: Ingrowing toenail of right foot (Primary Dx); Neuropathy; Type 2 diabetes, controlled, with neuropathy (HCC); Open wound of toe of right foot; Diminished pulses in lower extremity; Hammertoe, bilateral Start: 05-13-2023 ambulatory Ignacio Cheatham MD Work Phone: Internal Medicine [facility] Start: 05-01-2023 End: 05-01-2023 Patient encounter procedure Gege Mccrary OD Work Phone: Ophthalmology Comment on above: Type 2 diabetes dion itus with stable proliferative retinopathy of both eyes, with long-term current use of insulin (HCC) (Primary Dx); Presbyopia; Pseudophakia of both eyes Start: 04-14-2023 Telephone encounter Ignacio Cheatham MD Work Phone: [facility] Comment on above: Patient Question Start: 04-06-2023 Telephone encounter Ignacio Cheatham MD Work Phone: [facility] Comment on above: Results Start: 04-03-2023 End: 04-03-2023 Subsequent hospital visit by physician Ct [facility] (I-Stat) Work Phone: Cat Scan Comment on above: Lung nodules [R91.8] Start: 03-17-2023 End: 03-17-2023 Subsequent hospital visit by physician Xr [facility] [place] Work Phone: Radiology Comment on above: Foot pain, right [M7 9.671] Start: 03-09-2023 End: 03-09-2023 Emergency department patient visit Dr. Ignacio Cheatham Work Phone: [facility] Work Phone: Start: 03-04-[address] Viky Cheatham Work Phone: [facility] Start: 02-25-[address] Viky Cheatham Work Phone: [facility] Start: 02-18-[address] Viky Cheatham Work Phone: [facility] Start: 02-11-[address] Viky Cheatham Work Phone: [facility] Start: 02-09-[address] Viky Cheatham Work Phone: [facility] Start: 02-04-2023 End: 02-04-2023 Emergency department patient visit Dr. Ignacio Cheatham Work Phone: [facility] Work Phone: Start: 02-04-[address] Viky Cheatham Work Phone: [facility] Start: 01-29-2023 Non-patient / Non-visit Dr. Lance Cheatham Work Phone: [facility] Work Phone: Start: 01-28-2023 Non-patient / Non-visit Dr. Lance Cheatham Work Phone: [facility] Work Phone: Start: 01-27-2023 Telephone encounter Rojelio Monsalve i, MD Work Phone: Endocrinology Comment on above: PA--TRULICITY Start: 01-27-2023 Non-patient / Non-visit Dr. Lance Cheatham Work Phone: [facility] Work Phone: Start: 01-26-2023 Non-patient / Non-visit Dr. Lance Cheatham Work Phone: [facility] Work Phone: Start: 01-26-2023 Refill Rojelio Clark MD Work Phone: Endocrinology Comment on above: Refill Request Start: 01-25-2023 Non-patient / Non-visit Dr. Lance Cheatham Work Phone: [facility] Work Phone: Start: 01-24-2023 Non-patient / Non-visit Dr. Lance Cheatham Work Phone: [facility] Work Phone: Start: 01-23-2023 Non-patient / Non-visit Dr. Lance Cheatham Work Phone: [facility] Work Phone: Start: 01-22-2023 Non-patient / Non-visit Dr. Lance Cheatham Work Phone: [facility] Work Phone: Start: 01-22-2023 End: 01-22-2023 Non-patient / Non-visit Dr. Ignacio Cheatham Work Phone: [facility] Work Phone: Start: 01-21-2023 Non-patient / Non-visit Dr. Lance Cheatham Work Phone: [facility] Work Phone: Start: 01-20-2023 Non-patient / Non-visit Dr. Lance Cheatham Work Phone: [facility] Work Phone: Start: 01-20-2023 End: 01-20-2023 Non-patient / Non-visit Dr. Ignacio Cheatham Work Phone: [facility] Work Phone: Start: 01-19-2023 End: 01-19-2023 Non-patient / Non-visit Dr. Ignacio Cheatham Work Phone: [facility] Work Phone: Start: 01-19-2023 End: 01-29-2023 Evaluation and management of inpatient Dr. Ign[facility] Cheatham [facility] Work Phone: Start: 01-19-2023 Non-patient / Non-visit Dr. Lance Cheatham Work Phone: [facility] Work Phone: Start: 01-15-2023 Telephone encounter Ignacio Cheatham MD Work Phone: [facility] Comment on above: Pt going to [facility] Start: 01-15-2023 Non-patient / Non-visit Dr. Lance Cheatham Work Phone: [facility] Start: 01-15-2023 End: 01-15-2023 Emergency department patient visit Dr. Ignacio Cheatham Work Phone: [facility] Work Phone: Start: 01-13-2023 End: 01-13-2023 Emergency department patient visit Dr. 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); Stress fracture of right tibia with routine healing, subsequent encounter Start: 12-15-2022 End: 12-15-2022 Subsequent hospital visit by physician Xr [facility] Work Phone: Radiology Comment on above: Stress fracture of r ight tibia, initial encounter [M84.361A] Start: 12-12-2022 ambulatory Reagan Riggs MD Work Phone: Orthopaedics Comment on above: X-ray Start: 12-10-2022 Orders Only Reagan Riggs MD Work Phone: Orthopaedics Comment on above: Stress fracture of r ight tibia, 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Primary Dx) Start: 11-24-2022 ambulatory Ignacio Cheatham MD Work Phone: [facility] [place] Comment on above: Short Term Paperwork Start: 11-24-2022 Telephone encounter Reagan mejia MD Work Phone: Orthopaedics Comment on above: Short term disabilit y paperwork Start: 11-20-2022 Telephone encounter Mackenzie Zamora MOLDER TRIMMER.BLOCK PAVER Work Phone: [facility] Start: 11-19-2022 ambulatory Ignacio Cheatham MD Work Phone: [facility] [place] Comment on above: Lyrica Start: 11-19-2022 End: 11-19-2022 Patient encounter procedure Kimberli Saleem MOLDER TRIMMER.BLOCK PAVER Work Phone: [facility] Comment on above: Dysuria (Primary Dx) Start: 11-18-2022 Telephone encounter Ignacio Cheatham MD Work Phone: [facility] [place] Comment on above: Erroneous encounter- disregard Start: 11-17-2022 Telephone encounter Ignacio Cheatham MD Work Phone: [facility] [place] Comment on above: [facility], PT (d/c pt on 11/14/22/) Start: 11-14-2022 Telephone encounter Ignacio Cheatham MD Work Phone: [facility] [place] Comment on above: Short Term Disabiity Forms Start: 11-10-2022 End: 11-10-2022 Subsequent hospital visit by physician Joni [facility] [place] Yip Work Phone: Radiology Comment on above: Pain of right lower extremity [M79.604] Start: 11-10-2022 Telephone encounter Brooke lópez APRN.BLOCK PAVER [facility] Comment on above: Patient Update Start: 11-10-2022 End: 11-10-2022 Patient encounter procedure Reagan Riggs MD Work Phone: Orthopaedics Comment on above: Stress fracture of r ight tibia, 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Primary Dx); Pain of right lower extremity Start: 11-07-2022 End: 11-07-2022 Patient encounter procedure Brooke Manning APRN.BLOCK PAVER Work Phone: Family [facility] [place] Comment on above: Neuropathy of hand, unspecified laterality (Primary Dx); Encounter for drug screening Start: 11-01-2022 Telephone encounter Ignacio Cheatham MD Work Phone: Internal Medicine [place] Comment on above: Patient Update Start: 10-30-2022 Non-patient / Non-visit Dr. Lance Cheatham Work Phone: [facility] Start: 10-30-2022 End: 10-30-2022 Emergency department patient visit Dr. Ign[facility] Start: 10-20-2022 End: 10-20-2022 Patient encounter procedure Ignacio Cheatham MD Work Phone: [facility] [place] Comment on above: Pain of right lower extremity (Primary Dx); Mixed hyperlipidemia; Abnormal x-ray; Lumbar radiculopathy; Primary hypertension; Type 2 diabetes, controlled, with neuropathy (HCC); End stage renal disease (HCC); Anxiety Start: 10-16-2022 Telephone encounter Ignacio Cheatham MD Work Phone: Family [facility] [place] Comment on above: [facility] Start: 10-15-2022 End: 10-15-2022 Emergency department patient visit Dr. Ignacio Cheatham Work Phone: [facility] [place] Work Phone: Start: 10-14-2022 ambulatory Ignacio Cheatham MD Work Phone: [facility] Comment on above: 10/15 visit Refill Request Start: 10-09-2022 Telephone encounter Ignacio Cheatham MD Work Phone: [facility] Comment on above: Home Health Physical Therapy Order Request Start: 09-29-2022 Telephone encounter [facility] Comment on above: Return Call Request (Kidney Txp Evaluation Status) Start: 09-24-2022 End: 09-24-[address] Ignacio Cheatham Work Phone: [facility] [place] Work Phone: Start: 09-24-2022 End: 09-24-[address] Ignacio Cheatham Work Phone: [facility] Start: 09-24-[address] Viky Cheatham Work Phone: [facility] Start: 09-19-2022 End: 09-19-[address] Ignacio Cheatham Work Phone: [facility] [place] Work Phone: Start: 09-19-2022 End: 09-19-[address] Ignacio Cheatham Work Phone: [facility] Start: 09-19-[address] Viky Cheatham Work Phone: [facility] Start: 09-18-2022 Telephone encounter Tyler hernandez DO Work Phone: Hematology/Oncology Comment on above: Appointment Start: 09-17-2022 End: 09-17-[address] Ignacio Cheatham Work Phone: [facility] [place] Work Phone: Start: 09-17-2022 End: 09-17-[address] Ignacio Cheatham Work Phone: [facility] Start: 09-17-[address] Viky Cheatham Work Phone: [facility] Start: 09-16-2022 Telephone encounter Dialysis [facility] Comment on above: Dialysis CKD Follow Up (Optim al Transition Program); Patient Update Start: 09-15-2022 End: 09-15-[address] Ignacio Cheatham Work Phone: [facility] [place] Work Phone: Start: 09-15-2022 End: 09-15-[address] Ignacio Cheatham Work Phone: [facility] Start: 09-15-[address] Viky Cheatham Work Phone: [facility] Start: 09-12-2022 Non-patient / Non-visit Dr. Lance Cheatham Work Phone: [facility] Physicians Work Phone: Start: 09-11-2022 Telephone encounter Ana aquino RN Work Phone: Hematology/Oncology Comment on above: [facility] Follow Up Start: 09-11-2022 Non-patient / Non-visit Dr. Lance Cheatham Work Phone: [facility] Physicians Work Phone: Start: 09-10-2022 Refill Rojelio Clark MD Work Phone: Endocrinology Comment on above: Refill Request Start: 09-10-2022 Telephone encounter Fab sibley APRN.BLOCK PAVER Work Phone: Kidney Medicine [facility] Comment on above: [place] CKD (chronic kidney disease) stage 5, GFR less than 15 ml/min ([facility]) (Primary Dx); Anemia of renal disease; Hyperkalemia; Metabolic acidosis; Hypocalcemia Start: 09-10-2022 End: 09-12-2022 Evaluation and management of inpatient Dr. Ignacio Cheatham Work Phone: [facility] 3 Work Phone: Start: 09-10-2022 End: 09-12-[address] Ignacio Cheatham Work Phone: [facility] [place] Work Phone: Start: 09-10-2022 Non-patient / Non-visit Dr. Lance Cheatham Work Phone: [facility] Inpatient Physicians Work Phone: Start: 09-09-2022 End: 09-09-2022 Patient encounter procedure Ignacio Cheatham MD Work Phone: [facility] [place] Comment on above: Inability to ambulat e due to multiple joints (Primary Dx); Superficial phlebitis of right leg; Type 2 diabetes, controlled, with neuropathy (HCC); Essential hypertension Start: 09-07-2022 End: 09-07-2022 Emergency department patient visit [facility] [place] Work Phone: Start: 09-03-2022 ambulatory Kaylin Carranza RN [facility] Start: 09-03-2022 Follow-up encounter Kaylin farmer Medicine Comment on above: CKD Follow Up (Optim al Transition Program/Prep for Dialysis ) Start: 08-27-2022 Telephone encounter Kaylin farmer Medicine Comment on above: Patient Update ([facility] ular appt) CKD (chronic kidney disease) stage 5, GFR less than 15 ml/min (HCC) (Primary Dx) Start: 08-26-2022 Orders Only Fab Lynn i, APRN.BLOCK PAVER Work Phone: Kidney Medicine Comment on above: Hyperkalemia (Primar y Dx) Start: 08-21-2022 End: 08-21-2022 ambulatory Injection Iam [facility] Work Phone: Hematology/Oncology Comment on above: CKD (chronic kidney disease) Stage 4, GFR 15-29 ml/min (Primary Dx) Start: 08-21-2022 End: 08-21-2022 Subsequent hospital visit by physician Xr [facility] Work Phone: Radiology Comment on above: CKD (chronic kidney disease) stage 5, GFR less than 15 ml/min (HCC) [N18.5] Start: 08-20-2022 Telephone encounter Kaylin farmer Medicine Comment on above: Patient Update (Opti mal Transition Program - Dialysis) Start: 08-18-2022 Telephone encounter Kaylin Sosa Comment on above: Orders Start: 08-11-2022 End: 08-11-2022 Subsequent hospital visit by physician Joni [facility] [place] Work Phone: Radiology Comment on above: Right elbow pain [M2 5.521] Start: 08-05-2022 Patient Outreach Chrissy Cheng RN Work Phone: Production Team Ad[employer] Management Comment on above: Transition Of Care ( TCM Initial Hospital Discharge 08/04/2022) Hospital F/U Orders Transition Of Care ( TCM Pharmacy-Hospital discharge 08/04/22) Start: 08-04-2022 ambulatory Goldy Hunter D O Work Phone: Kidney Medicine Comment on above: Short Term Start: 07-31-2022 Telephone encounter Katrin mueller MOLDER TRIMMER.BLOCK PAVER Work Phone: Vascular Surgery Comment on above: Returning Patient's Call; Appointment Start: 07-31-2022 End: 07-31-2022 Patient encounter procedure Sha Ray MOLDER TRIMMER.BLOCK PAVER Work Phone: [facility] Comment on above: Procedure not zina d out (Primary Dx) Start: 07-24-2022 End: 07-24-2022 ambulatory UNKNOWN PROVIDER Facility:[facility] Start: 07-01-2022 ambulatory Goldy Hunter D O Work Phone: Kidney Medicine Comment on above: potassium level Start: 07-01-2022 E-mail encounter devika m caregiver Goldy Hunter DO Work Phone: [facility] Start: 06-30-2022 End: 06-30-2022 [facility] [place] [facility] Work Phone: Pre Anesthesia Comment on above: Pre-operative examin ation (Primary Dx); Mild intermittent asthma without complication; Bipolar affective disorder, remission status unspecified ([facility]); Anemia, unspecified type; Neuropathy; Gastroesophageal reflux disease, unspecified whether esophagitis present; Type 2 diabetes, controlled, with neuropathy ([facility]); H/O gastric bypass; Essential hypertension; Mixed hyperlipidemia; Personal history of DVT (deep vein thrombosis); Hypercoagulable state ([facility]); ESRD (end stage renal disease) ([facility]); Pulmonary nodules; Class 2 severe obesity due to excess calories with serious comorbidity and body mass index (BMI) of 36.0 to 36.9 in adult ([facility]); Hyperkalemia Start: 06-30-2022 End: 06-30-2022 Preprocedural examination done Pac [place] [facility] Work Phone: Pre Anesthesia Start: 06-25-2022 Refill Goldy Snyder Work Phone: Kidney Medicine Comment on above: Refill Request Start: 06-24-2022 End: 06-24-2022 Patient encounter procedure Kirsten Euceda PA-C Work Phone: [facility] Comment on above: Acute UTI (Primary D x) Start: 06-20-2022 ambulatory Kaylin Carranza RN [facility] Start: 06-20-2022 Follow-up encounter Kaylin Carranza RN [facility] Comment on above: CKD Follow Up (Optim al Transition Program ) ESRD (end stage edgar l disease) ([facility]) (Primary Dx) Start: 06-19-2022 Telephone encounter Nikolas Valenzuela MD Work Phone: Vascular Surgery Comment on above: Procedure Start: 06-12-2022 End: 06-12-2022 Patient encounter procedure Dakota Rajput MD Work Phone: Orthopaedics Comment on above: Chronic pain of left knee (Primary Dx); Post-traumatic osteoarthritis of left knee Start: 06-07-2022 Refill Ignacio Cheatham MD Work Phone: [facility] [place] Comment on above: Refill Request Start: 05-26-2022 End: 05-26-2022 Patient encounter procedure Goldy Hunter DO Work Phone: Kidney Medicine Comment on above: CKD (chronic kidney disease) stage 5, GFR less than 15 ml/min (HCC) (Primary Dx); Secondary renal hyperparathyroidism (HCC); Primary hypertension; Metabolic acidosis; Hyperlipidemia, unspecified hyperlipidemia type Start: 05-02-2022 Telephone encounter Kaylin Marcus [facility] Comment on above: CKD Follow Up (OTP) Start: 04-29-2022 Refill Ignacio Cheatham MD Work Phone: Family [facility] Comment on above: Refill Request Start: [...] 04-10-2022 Subsequent hospital visit by physician Joni [facility] [place] Yip Work Phone: Radiology Comment on above: Chronic pain of left knee [M25.562, G89.29] Screening breast exa mination [Z12.39] Start: 04-05-2022 Telephone encounter Hever Davis APRN.CNP Work Phone: [facility] Comment on above: Results Start: 04-02-2022 End: 04-02-2022 Patient encounter procedure Kirsten Euceda PA-C Work Phone: [facility] Comment on above: Urinary frequency (P rimary Dx) Iron malabsorption ( Primary Dx); Anemia due to stage 4 chronic kidney disease (HCC) Start: 04-02-2022 Telephone encounter Ignacio Cheatham MD Work Phone: Family [facility] [place] Comment on above: FMLA Paperwork ([employer]fla yonatan FMLA paperwork ) Start: 03-27-2022 [facility] Start: 03-25-2022 Orders Only Goldy Snyder [...] (HCC) Start: 03-05-2022 Telephone encounter Sha cardona MOLDER TRIMMER.BLOCK PAVER Work Phone: [facility] Comment on above: Results Start: 03-04-2022 End: 03-04-2022 Patient encounter procedure Hever Cheema MOLDER TRIMMER.BLOCK PAVER Work Phone: [facility] Comment on above: Viral URI with cough (Primary Dx) Start: 02-20-2022 End: 02-20-2022 ambulatory Injection Iam [facility] Work Phone: Hematology/Oncology Comment on [...] 02-18-2022 Subsequent hospital visit by physician Xr [facility] [place] Work Phone: Radiology Comment on above: Foot pain, left [M79 .672] Start: 02-18-2022 End: 02-18-2022 Patient encounter procedure Jimmy Rabago MOLDER TRIMMER.BLOCK PAVER Work Phone: [facility] Comment on above: Foot pain, [...] Start: 01-24-2022 End: 01-24-2022 ambulatory Injection Iam [facility] [place] Work Phone: Hematology/Oncology Comment on above: CKD (chronic kidney disease) Stage 4, GFR 15-29 ml/min (Primary Dx) Start: 01-13-2022 End: 01-13-2022 ambulatory Treatment Rm 10 [facility] [place] Work Phone: Hematology/Oncology Comment on above: CKD (chronic kidney disease) Stage 4, GFR 15-29 ml/min (Primary Dx); Iron malabsorption; H/O gastric bypass Start: 01-10-2022 End: 01-10-2022 ambulatory Treatment Rm 3 [facility] [place] Work Phone: Hematology/Oncology Comment on above: Anemia of renal dise ase (Primary Dx); CKD (chronic kidney disease) Stage 4, GFR 15-29 ml/min; Iron malabsorption; H/O gastric bypass Start: 01-08-2022 End: 01-08-2022 ambulatory Treatment Rm 3 [facility] [place] Work Phone: Hematology/Oncology Comment on above: CKD (chronic kidney disease) Stage 4, GFR 15-29 ml/min (Primary Dx); Iron malabsorption; H/O gastric bypass Start: 12-30-2021 End: 12-30-2021 ambulatory Treatment Rm 8 [facility] [place] Work Phone: Hematology/Oncology Comment on above: CKD [...] encounter procedure Teagan Spencer MD Work Phone: [facility] Start: 12-05-2021 End: 12-05-2021 Refill Ignacio Cheatham MD Work Phone: [facility] [place] Comment on above: Refill Request Chronic kidney disea se, stage 4, severely decreased GFR (HCC) (Primary Dx); Secondary renal hyperparathyroidism (HCC); Anemia of renal disease; Metabolic acidosis; Essential hypertension; Hyperlipidemia, unspecified hyperlipidemia type; Persistent proteinuria; Type 2 diabetes, controlled, with neuropathy (HCC) Start: 11-27-2021 Orders Only Fab Lynn i, APRN.BLOCK PAVER Work Phone: Kidney Medicine Comment on above: Chronic Kidney Disea se (Monthly Touch Point Call - OTP) Start: 11-25-2021 Refill Rojelio Clark MD Work Phone: Endocrinology Comment on above: Refill Request Start: 11-20-2021 End: 11-20-2021 ambulatory Respiratory Therapist [facility] Work Phone: Pulmonary Medicine Comment on above: Spirometry Start: 11-20-2021 End: 11-20-2021 Patient encounter procedure Respiratory Therapist [facility] Work Phone: [facility] Start: 10-28-2021 End: 10-28-2021 Nursing evaluation [...] [facility] [place] Work Phone: [facility] Start: 10-15-2021 End: 10-15-2021 Patient encounter procedure Sha Cory MULLER Work Phone: [facility] Comment on above: Viral illness (Prima ry Dx) Start: 10-02-2021 End: 10-02-2021 Patient encounter procedure Rojelio Clark MD Work Phone: Endocrinology Comment on above: Poorly controlled ty pe 2 diabetes mellitus (HCC) (Primary Dx) Start: 09-30-2021 Telephone encounter Karly Wells RN [facility] Comment on above: Follow Up Start: 09-14-2021 End: 09-14-2021 Patient encounter procedure Ignacio Cheatham MD Work Phone: [facility] [place] Comment on above: Type 2 diabetes, [...] 08-23-2021 ambulatory Ignacio Cheatham MD Work Phone: [facility] [place] Comment on above: Work accommodation Start: 08-21-2021 Telephone encounter Ignacio Cheatham MD Work Phone: [facility] [place] Comment on above: Forms Start: 08-19-2021 Telephone encounter Karly Beasley [facility] Comment on above: Results Start: 08-15-2021 End: [...] 08-12-2021 End: 08-12-2021 Patient encounter procedure Jonathan Valenzeula MD Work Phone: Vascular Surgery Comment on above: CKD (chronic kidney disease) stage 5, GFR less than 15 ml/min (HCC) (Primary Dx) Start: 08-01-2021 Telephone encounter Ignacio Cheatham MD Work Phone: [facility] Comment on above: Patient Question Start: 08-01-2021 End: 08-01-2021 Patient encounter procedure Fab Cochran APRN.BLOCK PAVER Work Phone: Kidney Medicine Comment on above: Stage 5 chronic kidn ey disease not on chronic dialysis (HCC) (Primary Dx); Secondary renal hyperparathyroidism (HCC); Metabolic acidosis; Anemia of renal disease; Essential hypertension; Hyperlipidemia, unspecified hyperlipidemia type; Vitamin D deficiency; Persistent proteinuria; Hyperphosphatemia Start: 07-30-2021 End: 07-30-2021 Patient encounter procedure Ignacio Cheatham MD Work Phone: [facility] Comment on above: Hypotension, unspeci fied hypotension type (Primary Dx); CKD (chronic kidney disease) Stage 4, GFR 15-29 ml/min; Type 2 diabetes mellitus with stage 4 chronic kidney disease, without long-term current use of insulin ([facility]) Start: 07-30-2021 Telephone encounter Goldy Hernandez ceballos DO Work Phone: [facility] & Comment on above: Patient Update Start: 07-29-2021 End: 07-29-2021 Emergency department patient visit [facility] [place] Start: 07-29-2021 ambulatory Chrissy WEISS E MASTER TECHNICIAN Comment on above: Dizziness (low blood pressure, abdominal pain) Start: 07-26-2021 Refill Ignacio Cheatham MD Work Phone: [facility] [place] Comment on above: Refill Request Start: 07-23-2021 Telephone encounter Ignacio Cheatham MD Work Phone: Family Medicine [place] Comment on above: Nurse Triage Call Start: 07-18-2021 ambulatory Goldy Booker O Work Phone: [facility] Comment on above: Glucose monitor Start: 07-18-2021 [...] kidney disease) stage 4, GFR 15-29 ml/min ([facility]); Pre-transplant evaluation for chronic kidney [...] Fibromyalgia Start: 06-26-2021 Telephone encounter [facility] Comment on above: Appointment Start: 06-11-2021 ambulatory Ignacio Cheatham MD Work Phone: Internal Medicine [facility] [place] Start: 06-06-2021 Telephone encounter Ignacio Cheatham MD Work Phone: [facility] [place] Comment on above: Results Start: 06-05-2021 Telephone encounter Ignacio Cheatham MD Work Phone: [facility] [place] Comment on above: Results Start: 06-03-2021 End: 06-03-2021 Patient encounter procedure Stacy Schmitz PA-C Work Phone: [facility] Comment on above: Vomiting and diarrhe a (Primary Dx); Nausea Start: 10-31-2020 End: 10-31-2020 Subsequent hospital visit by physician Joni [facility] [place] Work Phone: Radiology Comment on above: Neck pain [M54.2] Start: 01-23-2020 Patient encounter procedure SELF ANGÉLICA F Facility:[facility] Start: 03-19-2018 Ambulatory [facility] Facility :[facility] Start: 07-23-2017 End: 07-23-2017 Emergency department patient visit GRACIELA MITCHELL Facility:B Start: 03-19-2017 Ambulatory [facility] Facility :[facility] Start: 03-09-2008 End: 04-16-2017 Patient encounter status Dorene Murillo MD Work Phone: [facility] Procedures Date Procedure Procedure Detail Performing Clinician [...] Dorene Murillo MD Work Phone: Start: 12-11-2023 [employer] COVI D-19 VACCINE AGE 12+ YR (COMIRNATY) Tresa Marcum MOLDER TRIMMER.BLOCK PAVER Work Phone: Start: 09-18-2023 Radiologic examinati on knee 1/2 views Dorene Murillo MD Work Phone: Start: 07-09-2023 Radiologic examinati on knee 1/2 views Dorene Murillo MD Work Phone: Start: 06-09-2023 Plain X-ray of tibia and fibula Start: 06-04-2023 Plain X-ray of tibia and fibula Start: 06-04-2023 Radiologic examination of knee Start: 03-17-2023 Radex ankle complete minimum 3 views Sha Ray MOLDER TRIMMER.BLOCK PAVER Work Phone: Start: 03-09-2023 Plain X-ray of [...] Speci men Type: BLOOD SPECIMEN Ordering Facility: [facility] Address: [address] [place] [address] Performed By: #### % CORDELL, TSCR, [id number] #### [facility] [place] [id number] [address] [place] [address] [place] Start: 06-24-2022 Urnls dip [...] 03-04-2022 COVID WITH FLUA+B, ROUTINE Hever Cheema MOLDER TRIMMER.BLOCK PAVER Work Phone: Start: 02-18-2022 Radex foot complete minimum 3 views Jimmy Rabago MOLDER TRIMMER.BLOCK PAVER Work Phone: Start: 11-20-2021 Co diffusing capacity [...] DTaP/Tdap/Td Vaccines (3 - Td or Tdap) [facility] Start: 11-25-2026 Urine microalbumin profile [facility] Start: 08-15-2025 HPV TESTING HPV TESTING [facility] Start: 08-15-2025 PAP TESTING PAP TESTING [facility] Start: 08-15-2025 Screening for malignant neoplasm of cervix [facility] Start: 07-11-2025 Glaucoma screening Dilated Retinal Exam [facility] Start: 07-01-2025 Colonoscopy COLONOSCOPY [facility] Start: 07-01-2025 COLORECTAL CANCER SCREENING COLORECTAL CANCER SCREENING [facility] Start: 07-01-2025 Screening for malignant neoplasm of colon [facility] Start: 06-01-2025 Annual PCP Team Chronic Disease Visit Annual PCP Team Chronic Disease Visit [facility] Start: 2025 RSV Immunization aged 60 or older (1 - 1-dose 60+ series) RSV Immunization aged 60 or older (1 - 1-dose 60+ series) [facility] Start: 03-25-2025 Annual PCP Team Chronic Disease Visit Annual PCP Team Chronic Disease Visit [facility] Start: 01-29-2025 End: 08-29-2025 CT Chest WO contrast CT CHEST WO IVCON Radiology Routine Lung nodules Expected: 01/29/2025, Expires: 08/29/2025 [facility] Work Phone: Comment on above: Expected: 01/29/2025, Expires: Start: 01-18-2025 End: 01-18-2025 Patient encounter procedure 01/18/2025 1:30 PM EST Office Visit Pulmonary Medicine [address] [place] [address] Smiley Slaughter APRN.BLOCK PAVER [address] [place] [address] 6 MTH F/U Pulmonary Medicine Comment on above: 6 MTH F/U Start: 01-13-2025 End: 01-13-2025 Patient encounter procedure 01/13/2025 2:15 PM EST Office Visit [facility] Ophthalmology [address] [place] [address] Gege Mccrary, OD [address] [place] [address] Return 6 months for diabetic eye exam Ophthalmology Comment on above: Return 6 months for diabetic eye exam Start: 01-09-2025 End: 10-12-2025 CT Chest WO contrast CT CHEST WO IVCON Radiology Routine Lung nodules Expected: 01/09/2025, Expires: 10/12/2025 [facility] Work Phone: Comment on above: Expected: 01/09/2025, Expires: Start: 01-09-2025 End: 01-09-2025 Patient encounter procedure 01/09/2025 1:20 PM EST Appointment Cat Scan [address] [place], [place] [id number] CT CHEST Cat Scan Comment on above: CT CHEST Start: 12-24-2024 Annual PCP Team Chronic Disease Visit Annual PCP Team Chronic Disease Visit [facility] Start: 12-24-2024 Anxiety Screening Anxiety Screening [facility] Comment on above: Postponed from 05/31/1983 (Declined at t his time) Start: 12-24-2024 BP Controlled (<130/80) BP Controlled (<130/80) [facility] in Start: 12-24-2024 Hepatitis A Vaccine (1 of 2 - Risk 2-dose series) Hepatitis A Vaccine (1 of 2 - Risk 2-dose series) [facility] Comment on above: Postponed from 1984 (Declined at t his time) Start: 12-24-2024 Shingrix Vaccine (1 of 2) Shingrix Vaccine (1 of 2) [facility] Comment on above: Postponed from 1984 (Declined at t his time) Start: 12-10-2024 Annual PCP Team Chronic Disease Visit Annual PCP Team Chronic Disease Visit [facility] Start: 12-10-2024 Diabetic foot examination Diabetic Foot Exam [facility] Start: 11-14-2024 End: 11-14-2024 Patient encounter procedure 11/14/2024 3:40 PM EDT Office Visit Neurology [address] [place], [place] [id number] Ignacio Barton Jr., MD [address] [place] [address] Dx: TIA (transient ischemic attack) [G45.9] Neurology Comment on above: Dx: TIA (transient ischemic attack) [G45 .9] Start: 10-31-2024 Influenza vaccination Influenza Vaccine (#1) [facility] Start: 10-03-2024 End: 10-03-2024 Patient encounter procedure 10/03/2024 10:50 AM EDT Appointment Mammogram [address] [place] [address] Mammogram Start: 09-19-2024 End: 09-19-2024 Patient encounter procedure Neurology Comment on above: 31 - 90 day follow up Start: 09-12-2024 End: 09-12-2024 Patient encounter procedure 09/12/2024 1:30 PM EDT Office Visit Pulmonary Medicine [address] [place] [address] Liz Ferreira MD [address] [place] [address] lung nodules Pulmonary Medicine Comment on above: lung nodules Start: 09-07-2024 End: 09-07-2024 Patient encounter procedure [facility] [place] Comment on above: 3 month follow up 3 month follow up/A1 C care gap Start: 09-06-2024 [facility] Start: 09-06-2024 [facility] Start: 08-29-2024 End: 08-29-2024 ambulatory 08/29/2024 11:00 AM EDT Education Endocrinology [address] [place] [address] June Scott, RD [address] [address] DIETITIAN Endocrinology Comment on above: DIETITIAN Start: 08-26-2024 End: 08-26-2024 Admission to same day surgery center [facility] Comment on above: 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 UPP ER EXTREMITY VENOUS SIDE W/ANGIO,FLUORO GUIDED,INCLUSIVE OF RAD S&I Start: 08-26-2024 End: 08-26-2024 Intro cath dialysis circuit w/trluml balo angiop 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 FISTULA UPPER EXTREMITY VENOUS SIDE W/ANGIO,FLUORO GUIDED,INCLUSIVE OF RAD S&I ESRD (end stage renal disease) ([facility]) 08/26/2024 10:30 AM EDT ME CATH Start: 08-26-2024 Subsequent hospital visit by physician [facility] Comment on above: ESRD (end stage renal disease) ([facility]) [N1 8.6] Start: 08-19-2024 End: 08-19-2024 Admission to same day surgery center 08/19/2024 12:30 PM EDT - 08/19/2024 2:08 PM EDT Surgery [facility] [address] [place] [address] Saira Jackson, DO [address] [place] [address] 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 FISTULA UPPER EXTREMITY VENOUS SIDE W/ANGIO,FLUORO GUIDED,INCLUSIVE OF RAD S&I [facility] Guide Comment on above: 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 FISTULA UPP ER EXTREMITY VENOUS SIDE W/ANGIO,FLUORO GUIDED,INCLUSIVE OF RAD S&I Start: 08-19-2024 End: 08-19-2024 Intro cath dialysis circuit w/trluml balo angiop 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 FISTULA UPPER EXTREMITY VENOUS SIDE W/ANGIO,FLUORO GUIDED,INCLUSIVE OF RAD S&I ESRD (end stage renal disease) ([facility]) 08/19/2024 12:30 PM EDT ME CATH Start: 08-19-2024 Subsequent hospital visit by physician 08/19/2024 12:30 PM EDT Hospital Encounter [facility] [address] [place] [address] Saira Jackson, DO [address] [place] [address] ESRD (end stage renal disease) ([facility]) [N18.6] [facility] Guide Comment on above: ESRD (end stage renal disease) ([facility]) [N1 8.6] Start: 08-08-2024 End: 08-08-2024 Patient encounter procedure 08/08/2024 2:45 PM EDT Office Visit [facility] [address] [place] [address] Dorene Murillo MD [address] [address] Reason for visit: One of the screws is coming out [facility] Comment on above: Reason for visit: One of the screws is c oming out Start: 08-04-2024 Complete blood count Hemoglobin/Hematocrit [facility] Start: 08-04-2024 Creatinine measurement Serum Creatinine [facility] Start: 08-04-2024 End: 08-04-2024 Patient encounter procedure 08/04/2024 1:00 PM EDT Office Visit [facility] [address] [place] [address] Efra Galarza APRN.BLOCK PAVER [address] [place] [address] Dx: Spinal stenosis of lumbar region, unspecified whether neurogenic claudication present [M48.061] [facility] Comment on above: Dx: Spinal stenosis of lumbar region, un specified whether neurogenic claudication present [M48.061] Start: 08-01-2024 End: 08-01-2024 ambulatory 08/01/2024 2:00 PM EDT Education Endocrinology [address] [facility] [place] [address] June Scott, RD [address] [id number] DIETITIAN Endocrinology Comment on above: DIETITIAN Start: 07-28-2024 Complete blood count Hemoglobin/Hematocrit [facility] Start: 07-28-2024 Creatinine measurement Serum Creatinine [facility] Start: 07-27-2024 End: 07-27-2024 Patient encounter procedure 07/27/2024 3:30 PM EDT Office Visit Vasculary [facility] [address] [facility] [place] [address] Stenosis of arteriovenous graft, 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] Vasculary Surgery Comment on above: Stenosis of arteriovenous graft, 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] Start: 07-27-2024 End: 07-27-2024 Patient encounter procedure 07/27/2024 2:20 PM EDT Appointment Cat Scan [address] [place] [address] Lung nodules [R91.8] Cat Scan Comment on above: Lung nodules [R91.8] Start: 07-11-2024 End: 07-11-2024 Patient encounter procedure Ophthalmology Comment on above: eye exam Reason for visit: On e of the screws is coming out Start: 07-06-2024 End: 07-06-2024 Patient encounter procedure 07/06/2024 2:00 PM EDT Office Visit Endocrinology [address] [facility] [place] [address] Trinidad Frazier, MOLDER TRIMMER.BLOCK PAVER [address] [place] [address] Type 2 diabetes, controlled, 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] Endocrinology Comment on above: Type 2 diabetes, controlled, with neurop athy (HCC) [E11.40] Start: 07-04-2024 End: 07-04-2024 Patient encounter procedure 07/04/2024 2:30 PM EDT Office Visit Neurology [address] [place] [address] Alondra Chung, PATRICE.BLOCK PAVER [address] [address] CASSIE (obstructive sleep apnea) [G47.3 Neurology Comment on above: CASSIE (obstructive sleep apnea) [G47.3 Start: 07-01-2024 End: 07-01-2024 Patient encounter procedure 07/01/2024 9:40 AM EDT Office Visit [facility] [address] [place] [address] Ignacio Cheatham MD [address] [place] [address] 6 month follow up [facility] Comment on above: 6 month follow up Start: 06-30-2024 Complete blood count Hemoglobin/Hematocrit [facility] Start: 06-16-2024 Complete blood count Hemoglobin/Hematocrit [facility] Start: 06-16-2024 Creatinine measurement Serum Creatinine [facility] Start: 06-10-2024 Complete blood count Hemoglobin/Hematocrit [facility] Start: 06-10-2024 Creatinine measurement Serum Creatinine [facility] Start: 06-01-2024 End: 08-31-2024 CBC W Auto Differential panel - Blood COMPLETE BLOOD COUNT AND DIFFERENTIAL Lab Routine Primary hypertension Expected: 06/01/2024, Expires: 08/31/2024 [facility] Comment on above: Expected: 06/01/2024, Expires: Start: 06-01-2024 End: 08-31-2024 Comprehensive metabolic 2000 panel - Serum or Plasma COMPREHENSIVE METABOLIC PANEL Lab Routine Primary hypertension Mixed hyperlipidemia Expected: 06/01/2024, Expires: 08/31/2024 [facility] Comment on above: Expected: 06/01/2024, Expires: Start: 06-01-2024 End: 08-31-2024 Hemoglobin A1c in Blood HEMOGLOBIN A1C Lab Routine Type 2 diabetes, controlled, with neuropathy (HCC) Expected: 06/01/2024, Expires: 08/31/2024 [facility] Work Phone: Comment on above: Expected: 06/01/2024, Expires: Start: 06-01-2024 End: 08-31-2024 Lipid 1996 panel - Serum or Plasma LIPID PANEL, FASTING Lab Routine Mixed hyperlipidemia Expected: 06/01/2024, Expires: 08/31/2024 [facility] Comment on above: Expected: 06/01/2024, Expires: Start: 06-01-2024 End: 08-31-2024 Magnesium [Mass/volume] in Serum or Plasma MAGNESIUM Lab Routine Primary hypertension Gastroesophageal reflux disease, unspecified whether esophagitis present Expected: 06/01/2024, Expires: 08/31/2024 [facility] Comment on above: Expected: 06/01/2024, Expires: Start: 06-01-2024 End: 06-01-2024 Patient encounter procedure 06/01/2024 1:40 PM EDT Office Visit Family Sheila Morse [address] [place] [address] Tresa Marcum APRN.BLOCK PAVER [address] [place] [address] rescheduled from 07/01 Family Sheila Morse Comment on above: rescheduled from 07/01 Start: 04-30-2024 Glaucoma screening Dilated Retinal Exam [facility] Start: 04-01-2024 End: 04-01-2024 Patient encounter procedure 04/01/2024 11:00 AM EST Office Visit Neurology [address] [facility] [address] Alondra Chung APRN.BLOCK PAVER [address] [place] [address] CASSIE (obstructive sleep apnea) [G47.3 Neurology Comment on above: CASSIE (obstructive sleep apnea) [G47.3 Start: 03-25-2024 End: 06-24-2024 Hemoglobin A1c in Blood HEMOGLOBIN A1C Lab Routine Primary hypertension Type 2 diabetes mellitus with stage 4 chronic kidney disease, without long-term current use of insulin (HCC) Expected: 03/25/2024, Expires: 06/24/2024 [facility] Work Phone: Comment on above: Expected: 03/25/2024, Expires: Start: 03-25-2024 End: 06-24-2024 Lipid 1996 panel - Serum or Plasma LIPID PANEL BASIC Lab Routine Primary hypertension Type 2 diabetes mellitus with stage 4 chronic kidney disease, without long-term current use of insulin (HCC) Expected: 03/25/2024, Expires: 06/24/2024 [facility] Comment on above: Expected: 03/25/2024, Expires: Start: 03-13-2024 Annual PCP Team Chronic Disease Visit Annual PCP Team Chronic Disease Visit [facility] Start: 03-02-2024 Medicare Advantage Annual Wellness Visit Medicare Advantage Annual Wellness Visit [facility] Start: 02-09-2024 End: 02-09-2024 Patient encounter procedure 02/09/2024 11:00 AM EST Office Visit Vascular Surgery [address] [place] [address] Saira Jackson, DO [address] [place] [address] ESRD (end stage renal disease) (HCC) [N18.6 Vascular Surgery Comment on above: ESRD (end stage renal disease) (HCC) [N1 8.6 Start: 01-27-2024 End: 01-27-2024 Patient encounter procedure 01/27/2024 10:15 AM EST Office Visit Endocrinology [address] [place], [place] [id number] Trinidad Frazier APRN.BLOCK PAVER [address] [place] [address] Type 2 diabetes, controlled, 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] Endocrinology Comment on above: Type 2 diabetes, controlled, with neurop athy (HCC) [E11.40] Start: 01-20-2024 End: 01-20-2024 Patient encounter procedure 01/20/2024 3:00 PM EST [facility] [address] [place], [place] [id number] [facility] [address] [place] [address] Type 2 diabetes, controlled, 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 Pharm Med Clinic Comment on above: Type 2 diabetes, controlled, with neurop athy (HCC) [E11.4 Start: 01-05-2024 End: 01-05-2024 Patient encounter procedure 01/05/2024 10:00 AM EST Office Visit Neurology [address] [place] [address] CASSIE (obstructive sleep apnea) [G47.33] Neurology Comment on above: CASSIE (obstructive sleep apnea) [G47.33] Start: 12-25-2023 Depression Screening Depression Screening [facility] Comment on above: Postponed from 05/31/1983 (Declined at t his time) Start: 12-25-2023 End: 12-25-2023 Patient encounter procedure 12/25/2023 9:40 AM EDT Office Visit [facility] [address] [place], [place] [id number] Ignacio Cheatham MD [address] [place], [place] [id number] [facility] Comment on above: Medication renewal Start: 12-21-2023 End: 12-21-2023 Patient encounter procedure 12/21/2023 3:15 PM EDT Office Visit [facility] [address] [place] [address] Dorene Murillo MD [address] [place] [address] rt tibiax [facility] Comment on above: rt tibiax Start: 12-17-2023 End: 12-17-2023 Patient encounter procedure 12/17/2023 2:15 PM EDT Office Visit [facility] [address] [place] [address] Dorene Murillo MD [address] [place] [address] rt tibiax [facility] Comment on above: rt tibiax Start: 12-11-2023 End: 03-11-2024 CBC W Auto Differential panel - Blood COMPLETE BLOOD COUNT AND DIFFERENTIAL Lab Routine ESRD (end stage renal disease) (HCC) Expected: 12/11/2023, Expires: 03/11/2024 [facility] Comment on above: Expected: 12/11/2023, Expires: Start: 12-11-2023 End: 03-11-2024 Comprehensive metabolic 2000 panel - Serum or Plasma COMPREHENSIVE METABOLIC PANEL Lab Routine Type 2 diabetes mellitus with stage 4 chronic kidney disease, without long-term current use of insulin (HCC) Expected: 12/11/2023, Expires: 03/11/2024 [facility] Comment on above: Expected: 12/11/2023, Expires: Start: 12-11-2023 End: 03-11-2024 Hemoglobin A1c in Blood HEMOGLOBIN A1C Lab Routine Type 2 diabetes mellitus with stage 4 chronic kidney disease, without long-term current use of insulin (HCC) Expected: 12/11/2023, Expires: 03/11/2024 [facility] Comment on above: Expected: 12/11/2023, Expires: Start: 12-11-2023 End: 03-11-2024 Lipid 1996 panel - Serum or Plasma LIPID PANEL BASIC Lab Routine Mixed hyperlipidemia Expected: 12/11/2023, Expires: 03/11/2024 [facility] Work Phone: Comment on above: Expected: 12/11/2023, Expires: Start: 12-11-2023 End: 03-11-2024 Magnesium [Mass/volume] in Serum or Plasma MAGNESIUM Lab Routine Gastroesophageal reflux disease, unspecified whether esophagitis present Expected: 12/11/2023, Expires: 03/11/2024 [facility] Comment on above: Expected: 12/11/2023, Expires: Start: 12-11-2023 End: 12-11-2023 Patient encounter procedure 12/11/2023 11:20 AM EDT Office Visit [facility] [place] [address] [place], [place] [id number] Tresa Marcum APRN.BLOCK PAVER [address] [place], [place] [phone] [facility] f/u for R knee surgery and infection. See TE 12/07/23. [facility] [place] Comment on above: [facility] f/u for R knee surgery and infection. See TE 12/07/23. Start: 11-11-2023 Complete blood count Hemoglobin/Hematocrit [facility] Start: 11-11-2023 Creatinine measurement Serum Creatinine [facility] Start: 11-11-2023 HEMOGLOBIN/HEMATOCRIT HEMOGLOBIN/HEMATOCRIT [facility] Start: 11-11-2023 Serum Creatinine Serum Creatinine [facility] Start: 11-08-2023 ANNUAL PCP TEAM CHRONIC DISEASE VISIT ANNUAL PCP TEAM CHRONIC DISEASE VISIT [facility] Start: 11-03-2023 End: 11-03-2023 Patient encounter procedure 11/03/2023 1:00 PM EDT Office Visit [facility] Ophthalmology [address] [place], [place] [address] Gege Mccrary, OD [address] [place] [address] dilated retinal exam Ophthalmology Comment on above: dilated retinal exam Start: 11-01-2023 Covid-19 Vaccine ( season) Covid-19 Vaccine ( season) [facility] Start: 11-01-2023 Influenza vaccination [facility] Start: 10-21-2023 ANNUAL PCP TEAM CHRONIC DISEASE VISIT ANNUAL PCP TEAM CHRONIC DISEASE VISIT [facility] Start: 10-15-2023 End: 10-15-2023 Patient encounter procedure 10/15/2023 9:15 AM EDT Office Visit Podiatry [address] [place], [place] [address] Frank Gerard [address] [facility] [address] [place] [phone] Right ankle and foot pain (bruising)-XRAY in [facility] Podiatry Comment on above: Right ankle and foot pain (bruising)-XRA Y in [facility] Start: 10-05-2023 End: 05-05-2024 Ct thorax w/o contrast material CT CHEST WO IVCON Radiology Routine Lung nodules Expected: 10/05/2023, Expires: 05/05/2024 [facility] Work Phone: Comment on above: Expected: 10/05/2023, Expires: Start: 09-14-2023 End: 09-14-2023 Patient encounter procedure 09/14/2023 9:45 AM EDT Office Visit [facility] [address] [place] [address] Dorene Murillo MD [address] [address] post op rt tibiax sx 06/12/23 [facility] Comment on above: post op rt tibiax sx 06/12/23 Start: 09-10-2023 ANNUAL PCP TEAM CHRONIC DISEASE VISIT ANNUAL PCP TEAM CHRONIC DISEASE VISIT [facility] Start: 08-27-2023 HEMOGLOBIN/HEMATOCRIT HEMOGLOBIN/HEMATOCRIT [facility] Start: 08-27-2023 Hepatitis B surface antibody level LDL CHOLESTEROL [facility] Start: 08-27-2023 SERUM CREATININE SERUM CREATININE [facility] Start: 08-22-2023 HEMOGLOBIN/HEMATOCRIT HEMOGLOBIN/HEMATOCRIT [facility] Start: 08-22-2023 SERUM CREATININE SERUM CREATININE [facility] Start: 08-17-2023 End: 08-17-2023 Patient encounter procedure 08/17/2023 11:30 AM EDT Office Visit [facility] [address] [place] [address] Dorene Murillo MD [address] [place] [address] rt tibia sx 06/12/23 [facility] Comment on above: rt tibia sx 06/12/23 Start: 08-12-2023 ANNUAL PCP TEAM CHRONIC DISEASE VISIT ANNUAL PCP TEAM CHRONIC DISEASE VISIT [facility] Start: 08-12-2023 Hemoglobin A1c measurement Diabetes: Hemoglobin A1C [facility] Start: 08-12-2023 HEMOGLOBIN/HEMATOCRIT HEMOGLOBIN/HEMATOCRIT [facility] Start: 08-12-2023 HEPATITIS A (1 of 2 - Risk 2-dose series) HEPATITIS A (1 of 2 - Risk 2-dose series) [facility] Comment on above: Postponed from 1966 (Declined at t his time) Postponed from 05/30 (Declined at this time) Start: 08-12-2023 Hepatitis A Vaccine (1 of 2 - Risk 2-dose series) Hepatitis A Vaccine (1 of 2 - Risk 2-dose series) [facility] Comment on above: Postponed from 1984 (Declined at t his time) Start: 08-12-2023 Hepatitis B surface antibody level LDL CHOLESTEROL [facility] Start: 08-12-2023 SERUM CREATININE SERUM CREATININE [facility] Start: 08-12-2023 SHINGRIX VACCINE (1 of 2) SHINGRIX VACCINE (1 of 2) [facility] Comment on above: Postponed from 1984 (Declined at t his time) Start: 08-05-2023 HEMOGLOBIN/HEMATOCRIT HEMOGLOBIN/HEMATOCRIT [facility] Start: 08-05-2023 SERUM CREATININE SERUM CREATININE [facility] Start: 08-01-2023 HEMOGLOBIN/HEMATOCRIT HEMOGLOBIN/HEMATOCRIT [facility] Start: 08-01-2023 SERUM CREATININE SERUM CREATININE [facility] Start: 07-29-2023 End: 07-29-2023 Debridement muscle &/fascia [...] EDT [place] Start: 07-25-2023 HEMOGLOBIN/HEMATOCRIT HEMOGLOBIN/HEMATOCRIT [facility] Start: 07-22-2023 Hemoglobin A1c measurement HbA1C [facility] Start: 07-13-2023 End: 07-13-2023 Patient encounter procedure 07/13/2023 8:45 AM EDT Office Visit Podiatry [address] [place], [place] [id number] Frank Gerard [address] [place], [place] [phone] diabetic f/u 1 mnth r/s from Podiatry Comment on above: diabetic f/u 1 mnth r/s from Start: 07-10-2023 End: 07-10-2023 Patient encounter procedure 07/10/2023 8:45 AM EDT Office Visit Podiatry [address] [place] [address] Frank Gerard [address] [place], [place] [phone] diabetic f/u 1 mnth r/s from Podiatry Comment on above: diabetic f/u 1 mnth r/s from Start: 07-09-2023 SERUM CREATININE SERUM CREATININE [facility] Start: 07-06-2023 End: 07-06-2023 Patient encounter procedure 07/06/2023 11:30 AM EDT Office Visit [facility] [address] [place] [address] Dorene Murillo MD [address] [place] [address] PO R TIBIA--SX: 06/12/23 [facility] Orth[facility] Comment on above: PO R TIBIA--SX: 06/12/23 Start: 07-06-2023 End: 07-06-2023 Patient encounter procedure 07/06/2023 8:30 AM EDT Office Visit Podiatry [address] [place] [address] Frank Gerard [address] [place] [address] 1 month follow up diabetic foot care Podiatry Comment on above: 1 month follow up diabetic foot care Start: 07-04-2023 SERUM CREATININE SERUM CREATININE [facility] Start: 07-02-2023 Administration of blood product [facility] Start: 07-02-2023 [facility] Start: 07-02-2023 Administration of blood product [facility] Start: 07-02-2023 [facility] Start: 07-02-2023 Administration of blood product [facility] Start: 07-02-2023 [facility] Start: 07-01-2023 HEMOGLOBIN/HEMATOCRIT HEMOGLOBIN/HEMATOCRIT [facility] Start: 07-01-2023 SERUM CREATININE SERUM CREATININE [facility] Start: 06-29-2023 Leukocyte reduced red blood cells [facility] Start: 06-29-2023 End: 06-29-2023 [facility] Start: 06-29-2023 Administration of blood product [facility] Start: 06-09-2023 [facility] Start: 06-04-2023 [facility] Start: 05-25-2023 HEMOGLOBIN/HEMATOCRIT HEMOGLOBIN/HEMATOCRIT [facility] Start: 05-25-2023 SERUM CREATININE SERUM CREATININE [facility] Start: 04-10-2023 Mammography [facility] Start: 04-10-2023 Screening for malignant neoplasm of breast Mammogram Screening [facility] Start: 04-02-2023 BP CONTROLLED (<130/80) BP CONTROLLED (<130/80) [facility] Start: 03-22-2023 HEMOGLOBIN/HEMATOCRIT HEMOGLOBIN/HEMATOCRIT [facility] Start: 03-21-2023 ANNUAL PCP TEAM CHRONIC DISEASE VISIT ANNUAL PCP TEAM CHRONIC DISEASE VISIT [facility] Start: 03-09-2023 [facility] Start: 03-02-2023 Behavioral Health Screening Behavioral Health Screening [facility] Start: 02-20-2023 HEMOGLOBIN/HEMATOCRIT HEMOGLOBIN/HEMATOCRIT [facility] Start: 02-04-2023 [facility] Start: 02-04-2023 Administration of blood product [facility] Start: 02-04-2023 Leukocyte reduced red blood cells [facility] Start: 02-04-2023 [facility] Start: 01-29-2023 Patient discharge [facility] Start: 01-29-2023 End: 01-29-2023 [facility] Start: 01-29-2023 Hemodialysis care [facility] Start: 01-27-2023 End: 01-27-2023 [facility] Start: 01-27-2023 Hemodialysis care [facility] Start: 01-24-2023 HEMOGLOBIN/HEMATOCRIT HEMOGLOBIN/HEMATOCRIT [facility] Start: 01-24-2023 End: 01-24-2023 [facility] Start: 01-24-2023 Hemodialysis care [facility] Start: 01-22-2023 End: 01-23-2023 [facility] Start: 01-21-2023 Application of intermittent pneumatic compression device [facility] Start: 01-21-2023 Provision of overbed trapeze [facility] Start: 01-21-2023 Recommendation to continue with treatment [facility] Start: 01-21-2023 Ambulation therapy management [facility] Start: 01-21-2023 Application of device [facility] Start: 01-21-2023 Application of elastic bandage [facility] Start: 01-21-2023 Assessment of risk of venous thromboembolism [facility] Start: 01-21-2023 Catheterization of vein [facility] Start: 01-21-2023 Exercises [facility] Start: 01-21-2023 Following clinical pathway protocol [facility] Start: 01-21-2023 Introduction of urinary catheter [facility] Start: 01-21-2023 Measuring intake and output [facility] Start: 01-21-2023 Neurovascular assessment [facility] Start: 01-21-2023 Patient education [facility] Start: 01-21-2023 Procedure discontinued [facility] Start: 01-21-2023 Provision of activity privileges [facility] Start: 01-21-2023 Referral to occupational therapist [facility] Start: 01-21-2023 Referral to service [facility] Start: 01-21-2023 Vital signs measurements [facility] Start: 01-21-2023 Wound care [facility] Start: 01-21-2023 [facility] Start: 01-21-2023 End: 01-21-2023 [facility] Start: 01-21-2023 Hemodialysis care [facility] Start: 01-20-2023 End: 01-20-2023 [facility] Start: 01-20-2023 Hemodialysis care [facility] Start: 01-20-2023 Inhalation therapy procedure [facility] Start: 01-19-2023 Assessment of risk of venous thromboembolism [facility] Start: 01-19-2023 Care planning and problem solving actions [facility] Start: 01-19-2023 Care regimes management [facility] Start: 01-19-2023 Consultation [facility] Start: 01-19-2023 Insertion of catheter into peripheral vein [facility] Start: 01-19-2023 Measuring intake and output [facility] Start: 01-19-2023 Notification of physician [facility] Start: 01-19-2023 Providing care according to standard [facility] Start: 01-19-2023 Referral to hazardous substances scientist [facility] Start: 01-19-2023 Referral to occupational therapist [facility] Start: 01-19-2023 Referral to service [facility] Start: 01-19-2023 [facility] Start: 01-19-2023 Following clinical pathway protocol [facility] Start: 01-19-2023 Admission procedure [facility] Start: 01-19-2023 Verification routine [facility] Start: 01-19-2023 Hospital admission, emergency, from emergency room, medical nature [facility] Start: 01-19-2023 Consultation [facility] Start: 01-15-2023 [facility] Start: 01-13-2023 [facility] Start: 01-10-2023 HEMOGLOBIN/HEMATOCRIT HEMOGLOBIN/HEMATOCRIT [facility] Start: 01-10-2023 SERUM CREATININE SERUM CREATININE [facility] Start: 12-27-2022 HEMOGLOBIN/HEMATOCRIT HEMOGLOBIN/HEMATOCRIT [facility] Start: 12-18-2022 HEMOGLOBIN/HEMATOCRIT HEMOGLOBIN/HEMATOCRIT [facility] Start: 12-18-2022 SERUM CREATININE SERUM CREATININE [facility] Start: 11-20-2022 End: 01-20-2023 Bacteria identified in Urine by Culture URINE CULTURE Microbiology Routine Dysuria Expected: 11/20/2022, Expires: 01/20/2023 [facility] Work Phone: Comment on above: Expected: 11/20/2022, Expires: 3 Start: 11-20-2022 HEMOGLOBIN/HEMATOCRIT HEMOGLOBIN/HEMATOCRIT [facility] Start: 11-20-2022 SERUM CREATININE SERUM CREATININE [facility] Start: 11-11-2022 Hemoglobin A1c/Hemoglobin.total in Blood HBA1C [facility] Start: 11-11-2022 Hepatitis B Vaccines (2 of 2 - CpG 2-dose series) Hepatitis B Vaccines (2 of 2 - CpG 2-dose series) [facility] Start: 11-07-2022 End: 01-07-2023 PAIN PANEL, UR QUANT PAIN PANEL, UR QUANT Lab Routine Encounter for drug screening Expected: 11/07/2022, Expires: 01/07/2023 [facility] Work Phone: Comment on above: Expected: 11/07/2022, Expires: 3 Start: 11-07-2022 End: 01-07-2023 TOX SCREEN ROUT UR TOX SCREEN ROUT UR Lab Routine Encounter for drug screening Expected: 11/07/2022, Expires: 01/07/2023 [facility] Work Phone: Comment on above: Expected: 11/07/2022, Expires: 3 Start: 10-31-2022 COVID-19 Vaccine ( season) COVID-19 Vaccine () [facility] Start: 10-31-2022 Covid-19 Vaccine () Covid-19 Vaccine () [facility] Start: 10-31-2022 Influenza vaccination [facility] Start: 10-30-2022 [facility] Start: 10-16-2022 ANNUAL PCP TEAM CHRONIC DISEASE VISIT ANNUAL PCP TEAM CHRONIC DISEASE VISIT [facility] Start: 09-21-2022 HEMOGLOBIN/HEMATOCRIT HEMOGLOBIN/HEMATOCRIT [facility] Start: 09-21-2022 SERUM CREATININE SERUM CREATININE [facility] Start: 09-19-2022 Hemoglobin A1c/Hemoglobin.total in Blood HBA1C [facility] Start: 09-17-2022 End: 11-17-2022 Chronic hepatitis differentiation between hepatitis B and C virus panel - Serum or Plasma HEP REMOTE PANEL BL Lab Routine End stage renal disease (HCC) Expected: 09/17/2022, Expires: 11/17/2022 [facility] Work Phone: Comment on above: Expected: 09/17/2022, Expires: 3 Start: 09-14-2022 Adult depression screening assessment DEPRESSION SCREENING [facility] Start: 09-14-2022 ANNUAL PCP TEAM CHRONIC DISEASE VISIT ANNUAL PCP TEAM CHRONIC DISEASE VISIT [facility] Start: 09-12-2022 Patient discharge [facility] Start: 09-12-2022 [facility] Start: 09-10-2022 End: 11-10-2022 CBC W Auto Differential panel - Blood CBC + DIFF Lab Routine Anemia of renal disease Expected: 09/10/2022, Expires: 11/10/2022 [facility] Work Phone: Comment on above: Expected: 09/10/2022, Expires: 3 Start: 09-10-2022 End: 11-10-2022 Comprehensive metabolic 2000 panel - Serum or Plasma COMP METABOLIC PANEL Lab Routine CKD (chronic kidney disease) stage 5, GFR less than 15 ml/min ([facility]) Hyperkalemia Metabolic acidosis Hypocalcemia Expected: 09/10/2022, Expires: 11/10/2022 [facility] Work Phone: Comment on above: Expected: 09/10/2022, Expires: 3 Start: 09-10-2022 Assessment of risk of venous thromboembolism [facility] Start: 09-10-2022 Care of central venous catheter [facility] Start: 09-10-2022 Care regimes management [facility] Start: 09-10-2022 Fall prevention [facility] Start: 09-10-2022 Inhalation therapy procedure [facility] Start: 09-10-2022 Insertion of catheter into peripheral vein [facility] Start: 09-10-2022 Introduction of urinary catheter [facility] Start: 09-10-2022 Measuring intake and output [facility] Start: 09-10-2022 Oxygen therapy [facility] Start: 09-10-2022 Providing care according to standard [facility] Start: 09-10-2022 Provision of activity privileges [facility] Start: 09-10-2022 Referral to occupational therapist [facility] Start: 09-10-2022 Referral to service [facility] Start: 09-10-2022 [facility] Start: 09-10-2022 Following clinical pathway protocol [facility] Start: 09-10-2022 Admission procedure [facility] Start: 09-07-2022 US.doppler Lower extremity vein [facility] Start: 09-04-2022 End: 11-04-2022 Hepatitis B virus core Ab [Presence] in Serum HEP B CORE AB TOTAL Lab Routine CKD (chronic kidney disease) stage 5, GFR less than 15 ml/min (HCC) Expected: 09/04/2022 (Approximate), Expires: 11/04/2022 [facility] Work Phone: Comment on above: Expected: 09/04/2022 (Approximate), Expi res: 11/04/2022 Start: 08-27-2022 End: 10-27-2022 Hepatitis B virus core Ab [Presence] in Serum HEP B CORE AB TOTAL Lab Routine CKD (chronic kidney disease) stage 5, GFR less than 15 ml/min (HCC) Expected: 08/27/2022, Expires: 10/27/2022 [facility] Work Phone: Comment on above: Expected: 08/27/2022, Expires: Start: 08-27-2022 End: 10-27-2022 Hepatitis B virus surface Ab [Presence] in Serum HEP B SURF AB Lab Routine CKD (chronic kidney disease) stage 5, GFR less than 15 ml/min (HCC) Expected: 08/27/2022, Expires: 10/27/2022 [facility] Work Phone: Comment on above: Expected: 08/27/2022, Expires: 3 Start: 08-27-2022 End: 10-27-2022 Hepatitis B virus surface Ag [Presence] in Serum HEP B SURF AG SCRN Lab Routine CKD (chronic kidney disease) stage 5, GFR less than 15 ml/min (HCC) Expected: 08/27/2022, Expires: 10/27/2022 [facility] Work Phone: Comment on above: Expected: 08/27/2022, Expires: 3 Start: 08-26-2022 End: 10-26-2022 POTASSIUM BLD POTASSIUM BLD Lab Routine Hyperkalemia Expected: 08/26/2022, Expires: 10/26/2022 [facility] Work Phone: Comment on above: Expected: 08/26/2022, Expires: 3 Start: 07-30-2022 ANNUAL PCP TEAM CHRONIC DISEASE VISIT ANNUAL PCP TEAM CHRONIC DISEASE VISIT [facility] Start: 07-30-2022 BP CONTROLLED (<130/80) BP CONTROLLED (<130/80) [facility] Start: 07-30-2022 HEMOGLOBIN/HEMATOCRIT HEMOGLOBIN/HEMATOCRIT [facility] Start: 07-30-2022 SERUM CREATININE SERUM CREATININE [facility] Start: 07-03-2022 HEMOGLOBIN/HEMATOCRIT HEMOGLOBIN/HEMATOCRIT [facility] Start: 07-03-2022 Hepatitis B surface antibody level LDL CHOLESTEROL [facility] Start: 07-03-2022 SERUM CREATININE SERUM CREATININE [facility] Start: 06-28-2022 3 comp foot exam completed DIABETIC FOOT EXAM [facility] Start: 06-28-2022 Diabetic foot examination Diabetic Foot Exam [facility] Start: 06-26-2022 ANNUAL PCP TEAM CHRONIC DISEASE VISIT ANNUAL PCP TEAM CHRONIC DISEASE VISIT [facility] Start: 06-26-2022 HEMOGLOBIN/HEMATOCRIT HEMOGLOBIN/HEMATOCRIT [facility] Start: 06-26-2022 SERUM CREATININE SERUM CREATININE [facility] Start: 06-03-2022 HEMOGLOBIN/HEMATOCRIT HEMOGLOBIN/HEMATOCRIT [facility] Start: 06-03-2022 SERUM CREATININE SERUM CREATININE [facility] Start: 05-10-2022 Glaucoma screening Dilated Retinal Exam [facility] Start: 05-10-2022 Hepatitis C antibody, confirmatory test DILATED RETINAL EXAM [facility] Start: 05-07-2022 HEMOGLOBIN/HEMATOCRIT HEMOGLOBIN/HEMATOCRIT [facility] Start: 05-07-2022 SERUM CREATININE SERUM CREATININE [facility] Start: 03-26-2022 ANNUAL PCP TEAM CHRONIC DISEASE VISIT ANNUAL PCP TEAM CHRONIC DISEASE VISIT [facility] Start: 03-24-2022 Hemoglobin A1c/Hemoglobin.total in Blood HBA1C [facility] Start: 03-07-2022 End: 05-07-2022 Hematocrit [Volume Fraction] of Blood HEMATOCRIT (HCT) Lab STAT Iron malabsorption Chronic kidney disease (CKD), stage IV (severe) (HCC) Anemia due to stage 4 chronic kidney disease (HCC) Expected: 03/07/2022, Expires: 05/07/2022 [facility] Work Phone: Comment on above: Expected: 03/07/2022, Expires: 3 Start: 03-07-2022 End: 05-07-2022 Hemoglobin [Mass/volume] in Blood HEMOGLOBIN (HGB) Lab STAT Iron malabsorption Chronic kidney disease (CKD), stage IV (severe) (HCC) Anemia due to stage 4 chronic kidney disease (HCC) Expected: 03/07/2022, Expires: 05/07/2022 [facility] Work Phone: Comment on above: Expected: 03/07/2022, Expires: 3 Start: 03-02-2022 DEPRESSION ASSESSMENT DEPRESSION ASSESSMENT [facility] Start: 02-20-2022 End: 04-22-2022 25-hydroxyvitamin D3 [Mass/volume] in Serum or Plasma VITAMIN D 25 HYDROXY Lab Routine Repetitive stress injury Other diabetic neurological complication associated with type 2 diabetes mellitus (HCC) Expected: 02/20/2022, Expires: 04/22/2022 [facility] Work Phone: Comment on above: Expected: 02/20/2022, Expires: 3 Start: 12-06-2021 End: 12-05-2022 Cobalamin (Vitamin B12) [Mass/volume] in Serum or Plasma VITAMIN B12 BLOOD Lab Routine Anemia of renal disease Expected: 12/06/2021 (Approximate), Expires: 12/05/2022 [facility] Work Phone: Comment on above: Expected: 12/06/2021 (Approximate), Expi res: 12/05/2022 Start: 12-05-2021 End: 12-05-2022 Ferritin [Mass/volume] in Serum or Plasma FERRITIN BLD Lab Routine Anemia of renal disease Expected: 12/05/2021, Expires: 12/05/2022 [facility] Work Phone: Comment on above: Expected: 12/05/2021, Expires: 3 Start: 12-05-2021 End: 12-05-2022 Folate [Mass/volume] in Serum or Plasma FOLATE SERUM Lab Routine Anemia of renal disease Expected: 12/05/2021, Expires: 12/05/2022 [facility] Work Phone: Comment on above: Expected: 12/05/2021, Expires: 3 Start: 12-05-2021 End: 12-05-2022 Iron and Iron binding capacity panel - Serum or Plasma IRON + TIBC Lab Routine Anemia of renal disease Expected: 12/05/2021, Expires: 12/05/2022 [facility] Work Phone: Comment on above: Expected: 12/05/2021, Expires: 3 Start: 12-04-2021 End: 02-03-2022 Parathyrin.intact [Mass/volume] in Serum or Plasma PTH INTACT BLD Lab Routine Secondary renal hyperparathyroidism (HCC) Expected: 12/04/2021, Expires: 02/03/2022 [facility] Work Phone: Comment on above: Expected: 12/04/2021, Expires: 2 Start: 10-31-2021 Influenza vaccination INFLUENZA (#1) [facility] Start: 09-14-2021 End: 11-14-2021 Hemoglobin A1c in Blood HGB A1C Lab Routine Type 2 diabetes, controlled, with neuropathy (HCC) Expected: 09/14/2021, Expires: 11/14/2021 [facility] Work Phone: Comment on above: Expected: 09/14/2021, Expires: 2 Start: 08-15-2021 Mammography MAMMOGRAM [facility] Start: 08-07-2021 Hemoglobin A1c/Hemoglobin.total in Blood HBA1C [facility] Start: 07-23-2021 3 comp foot exam completed DIABETIC FOOT EXAM [facility] Start: 07-20-2021 Hepatitis B surface antibody level LDL CHOLESTEROL [facility] Start: 06-11-2021 End: 08-11-2021 LIPID PANEL BASIC LIPID PANEL BASIC Lab Routine Hyperlipidemia, unspecified hyperlipidemia type Expected: 06/11/2021, Expires: 08/11/2021 [facility] Work Phone: Comment on above: Expected: 06/11/2021, Expires: 2 Start: 06-11-2021 End: 08-11-2021 SCHEDULE LAB TESTING SCHEDULE LAB TESTING Lab Routine Expected: 06/11/2021, Expires: 08/11/2021 [facility] Work Phone: Comment on above: Expected: 06/11/2021, Expires: 2 Start: 03-02-2021 DEPRESSION ASSESSMENT DEPRESSION ASSESSMENT [facility] Start: 01-15-2021 COVID-19 VACCINE (3 - Booster for Pfizer series) COVID-19 VACCINE (3 - Booster for Pfizer series) [facility] Start: 10-10-2020 COVID-19 VACCINE (3 - Booster for Pfizer series) COVID-19 VACCINE (3 - Booster for Pfizer series) [facility] Start: 05-13-2019 Adult depression screening assessment DEPRESSION SCREENING [facility] Start: 05-31-2015 SHINGRIX VACCINE (1 of 2) SHINGRIX VACCINE (1 of 2) [facility] Start: 05-31-2015 Zoster Vaccines (1 of 2) Zoster Vaccines (1 of 2) [facility] Start: 11-30-2013 TWO PNEUMOVAX 5 YEARS APART PRIOR TO AGE 65 (#2) TWO PNEUMOVAX 5 YEARS APART PRIOR TO AGE 65 (#2) [facility] Start: 2010 COLOGUARD (FIT-DNA) COLOGUARD (FIT-DNA) [facility] Start: [address] COLONOGRAPHY [facility] Start: 2010 FECAL OCCULT BLOOD FECAL OCCULT BLOOD [facility] Start: 2010 Screening for malignant neoplasm of colon [facility] Start: 2010 SIGMOIDOSCOPY SIGMOIDOSCOPY [facility] Start: 11-30-2009 PNEUMOCOCCAL (2 - PCV) PNEUMOCOCCAL (2 - PCV) [facility] Start: 11-30-2009 Pneumococcal Vaccine: Pediatrics (0 to 5 Years) and At-Risk Patients (6 to 64 Years) (2 of 2 - PCV) Pneumococcal Vaccine: Pediatrics (0 to 5 Years) and At-Risk Patients (6 to 64 Years) (2 of 2 - PCV) [facility] Start: 2005 Screening for malignant neoplasm of breast Mammogram [facility] Start: 05-31-1995 Screening for malignant neoplasm of cervix [facility] Start: 1986 Screening for malignant neoplasm of cervix Pap Smear [facility] Start: 1984 ADULT PREVNAR ADULT PREVNAR [facility] Start: 1984 ADULT PREVNAR-13 ADULT PREVNAR-13 [facility] Start: 1984 Hepatitis A Vaccine (1 of 2 - Risk 2-dose series) Hepatitis A Vaccine (1 of 2 - Risk 2-dose series) [facility] Start: 1984 HEPATITIS B (1 of 3 - Risk 3-dose series) HEPATITIS B (1 of 3 - Risk 3-dose series) [facility] Start: 1984 SHINGRIX VACCINE (1 of 2) SHINGRIX VACCINE (1 of 2) [facility] Start: 05-31-1983 Anxiety Screening Anxiety Screening [facility] Start: 05-31-1983 BP CONTROLLED (<130/80) BP CONTROLLED (<130/80) [facility] Start: 05-31-1983 Depression Screening Depression Screening [facility] Start: 05-31-1983 Hepatitis C screening Hepatitis C Screening [facility] Start: 1977 Depression Screening Depression Screening [facility] Start: 05-31-1975 Diabetic foot examination Diabetes: Foot Exam [facility] Start: 05-31-1975 Glaucoma screening Diabetes: Retinopathy Screening [facility] Start: 05-31-1975 Preventive dental service Diabetes: Dental Exam [facility] Start: 1966 HEPATITIS A (1 of 2 - Risk 2-dose series) HEPATITIS A (1 of 2 - Risk 2-dose series) [facility] Start: 1966 MMR Vaccines (1 of 1 - Standard series) MMR Vaccines (1 of 1 - Standard series) [facility] Start: 1965 HEPATITIS B (1 of 3 - 3-dose series) HEPATITIS B (1 of 3 - 3-dose series) [facility] Start: 1965 HIV screening HIV Screening [facility] Start: 1965 Lipid panel Lipid Panel [facility] Start: 1965 Screening for malignant neoplasm of colon [facility] Appl modality 1/> ar eas tucker tank ea 15 min HYDROTHERAPY Procedures Routine Other chronic pain Fibromyalgia Weakness of both lower extremities Ordered: 06/01/2024 [facility] Comment on above: Ordered: 06/01/2024 Bacteria identified in Urine by Culture URINE CULTURE Microbiology Routine Urinary frequency Ordered: 04/02/2022 [facility] Work Phone: Comment on above: Ordered: 04/02/2022 Bacteria identified in Urine by Culture URINE CULTURE Microbiology Routine Acute UTI 06/24/2022 10:25 AM EDT [facility] Work Phone: Bacteria identified in Urine by Culture URINE CULTURE Microbiology STAT Dysuria 11/19/2022 12:40 PM EDT [facility] Work Phone: End: 03-25-2023 CBC panel - Blood by Automated count CBC Lab Routine Chronic kidney disease, stage 4, severely decreased GFR (HCC) Once per month for 4 Occurrences starting 03/25/2022 until 03/25/2023 [facility] Work Phone: Comment on above: Once per month for 4 Occurrences startin g 03/25/2022 until 03/25/2023 End: 07-30-2022 CBC W Auto Differential panel - Blood CBC + DIFF Lab Routine Anemia of renal disease Once per month for 11 Occurrences starting 07/30/2021 until 07/30/2022, 1 completed [facility] Work Phone: Comment on above: Once per month for 11 Occurrences starti ng 07/30/2021 until 07/30/2022, 1 completed End: 07-01-2025 CT Chest WO contrast CT CHEST WO IVCON Radiology Routine Lung nodules 1 Occurrences starting 06/01/2024 until 07/01/2025 [facility] Comment on above: 1 Occurrences starting 06/01/2024 until 07/01/2025 CT Chest WO contrast CT CHEST WO IVCON Radiology Routine Lung nodules 07/27/2024 2:44 PM EDT [facility] Work Phone: End: 07-12-2023 CT KNEE WO IVCON LEFT CT KNEE WO IVCON LEFT Radiology Routine Chronic pain of left knee 1 Occurrences starting 06/12/2022 until 07/12/2023 [facility] Work Phone: Comment on above: 1 Occurrences starting 06/12/2022 until 07/12/2023 Ct thorax w/o contra st material CT CHEST WO IVCON Radiology Routine Lung nodules 04/03/2023 2:41 PM EST [facility] Work Phone: End: 05-19-2025 DBT Breast - bilateral screening MARYLU SCREENING W VERONICA Radiology Routine Encounter for screening mammogram for breast cancer 1 Occurrences starting 04/19/2024 until 05/19/2025 [facility] Work Phone: Comment on above: 1 Occurrences starting 04/19/2024 until 05/19/2025 End: 04-02-2023 Hematocrit [Volume Fraction] of Blood HEMATOCRIT (HCT) Lab STAT Iron malabsorption Anemia due to stage 4 chronic kidney disease (HCC) Every other week for 24 Occurrences starting 04/02/2022 until 04/02/2023 [facility] Work Phone: Comment on above: Every other week for 24 Occurrences star ting 04/02/2022 until 04/02/2023 End: 04-02-2023 Hemoglobin [Mass/volume] in Blood HEMOGLOBIN (HGB) Lab STAT Iron malabsorption Anemia due to stage 4 chronic kidney disease (HCC) Every other week for 24 Occurrences starting 04/02/2022 until 04/02/2023 [facility] Work Phone: Comment on above: Every other week for 24 Occurrences star ting 04/02/2022 until 04/02/2023 End: 12-24-2024 HOME SLEEP APNEA TEST (HSAT) HOME SLEEP APNEA TEST (HSAT) Procedures Routine CASSIE (obstructive sleep apnea) 1 Occurrences starting 12/25/2023 until 12/24/2024 [facility] Work Phone: Comment on above: 1 Occurrences starting 12/25/2023 until 12/24/2024 Influenza virus A an d B RNA and SARS-CoV-2 (COVID-19) N gene panel - Respiratory specimen by CAR with probe detection COVID WITH FLUA+B, ROUTINE Microbiology Routine Viral illness Ordered: 10/15/2021 [facility] Work Phone: Comment on above: Ordered: 10/15/2021 LUNG DIFFUSION CAPAC ITY (DLCO) LUNG DIFFUSION CAPACITY (DLCO) PFT Routine Pulmonary nodules 11/20/2021 3:04 PM EDT [facility] Work Phone: End: 06-11-2024 MG Breast Screening MARYLU SCREENING Radiology Routine Encounter for screening mammogram for breast cancer 1 Occurrences starting 05/13/2023 until 06/11/2024 [facility] Work Phone: Comment on above: 1 Occurrences starting 05/13/2023 until 06/11/[address] [facility] Work Phone: Patient referral [facility] Work Phone: End: 07-30-2022 Protein/Creatinine [Mass Ratio] in Urine PROTEIN CREATININE RATIO Lab Routine Stage 5 chronic kidney disease not on chronic dialysis (HCC) Essential hypertension Persistent proteinuria Once per month for 11 Occurrences starting 07/30/2021 until 07/30/2022, 1 completed [facility] Work Phone: Comment on above: Once per month for 11 Occurrences starti ng 07/30/2021 until 07/30/2022, 1 completed End: 03-25-2023 Protein/Creatinine [Mass Ratio] in Urine PROTEIN CREATININE RATIO Lab Routine Chronic kidney disease, stage 4, severely decreased GFR (HCC) Once per month for 4 Occurrences starting 03/25/2022 until 03/25/2023 [facility] Work Phone: Comment on above: Once per month for 4 Occurrences startin g 03/25/2022 until 03/25/2023 End: 09-04-2023 Radiologic exam chest single view XR CHEST 1V FRONTAL Radiology Routine CKD (chronic kidney disease) stage 5, GFR less than 15 ml/min (HCC) 1 Occurrences starting 08/05/2022 until 09/04/2023 [facility] Work Phone: Comment on above: 1 Occurrences starting 08/05/2022 until 09/04/2023 End: 07-30-2022 Renal function 1999 panel - Serum or Plasma RENAL FUNCTION PANEL Lab Routine Stage 5 chronic kidney disease not on chronic dialysis (HCC) Vitamin D deficiency Once per month for 11 Occurrences starting 07/30/2021 until 07/30/2022, 1 completed [facility] Work Phone: Comment on above: Once per month for 11 Occurrences starti ng 07/30/2021 until 07/30/2022, 1 completed End: 03-25-2023 Renal function 1999 panel - Serum or Plasma RENAL FUNCTION PANEL Lab Routine Chronic kidney disease, stage 4, severely decreased GFR (HCC) Once per month for 4 Occurrences starting 03/25/2022 until 03/25/2023 [facility] Work Phone: Comment on above: Once per month for 4 Occurrences startin g 03/25/2022 until 03/25/2023 End: 07-26-2022 Screening mammography bi 2-view breast inc cad MARYLU SCREENING Radiology Routine Screening breast examination 1 Occurrences starting 06/26/2021 until 07/26/2022 [facility] Work Phone: Comment on above: 1 Occurrences starting 06/26/2021 until 07/26/2022 SPIROMETRY - BASELIN E AND POST DILATOR SPIROMETRY - BASELINE AND POST DILATOR PFT Routine Pulmonary nodules 10/28/2021 9:44 AM EDT [facility] Work Phone: Troponin T.cardiac [Mass/volume] in Serum or Plasma by High sensitivity method [facility] End: 08-13-2022 UPPER EXT MAP FOR DIALYSIS ACCESS [facility] UPPER EXT MAP FOR DIALYSIS ACCESS [facility] Vascular Lab Routine CKD (chronic kidney disease) stage 5, GFR less than 15 ml/min (HCC) 1 Occurrences starting 08/13/2021 until 08/13/2022 [facility] Work Phone: Comment on above: 1 Occurrences starting 08/13/2021 until 08/13/2022 End: 03-25-2023 Urinalysis complete panel - Urine URINALYSIS, WITH MICROSCOPIC Lab Routine Chronic kidney disease, stage 4, severely decreased GFR (HCC) Once per month for 4 Occurrences starting 03/25/2022 until 03/25/2023 [facility] Work Phone: Comment on above: Once per month for 4 Occurrences startin g 03/25/2022 until 03/25/2023 End: 07-30-2022 URINALYSIS, DIPSTICK ONLY URINALYSIS, DIPSTICK ONLY Lab Routine Stage 5 chronic kidney disease not on chronic dialysis (HCC) Essential hypertension Persistent proteinuria Once per month for 11 Occurrences starting 07/30/2021 until 07/30/2022 [facility] Work Phone: Comment on above: Once per month for 11 Occurrences starti ng 07/30/2021 until 07/30/2022 End: 02-08-2025 US AV fistula US A/V FIST[facility] Vascular Lab Routine Stenosis of arteriovenous graft, 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HCC) 1 Occurrences starting 02/09/2024 until 02/08/2025 [facility] Work Phone: Comment on above: 1 Occurrences starting 02/09/2024 until 02/08/2025 End: 05-14-2024 US.doppler Extremity arteries - bilateral for physiologic artery study PVR ANK PRESS [facility] Vascular Lab Routine Neuropathy Type 2 diabetes, controlled, with neuropathy ([facility]) Open wound of toe of right foot Diminished pulses in lower extremity Hammertoe, bilateral 1 Occurrences starting 05/15/2023 until 05/14/2024 [facility] Work Phone: Comment on above: 1 Occurrences starting 05/15/2023 until 05/14/2024 End: 06-13-2024 XR Foot - bilateral AP and Lateral and oblique XR FOOT GENERAL 3V AP/LAT/OBL BILATERAL Radiology Routine Neuropathy Type 2 diabetes, controlled, with neuropathy ([facility]) Open wound of toe of right foot Diminished pulses in lower extremity Hammertoe, bilateral 1 Occurrences starting 05/15/2023 until 06/13/2024 [facility] Work Phone: Comment on above: 1 Occurrences starting 05/15/2023 until 06/13/2024 End: 01-09-2024 XR TIBIA FIBULA 2V AP/LAT RIGHT XR TIBIA FIBULA 2V AP/LAT RIGHT Radiology Routine Stress fracture of right tibia, initial encounter 1 Occurrences starting 12/10/2022 until 01/09/2024 [facility] Work Phone: Comment on above: 1 Occurrences starting 12/10/2022 until 01/09/2024 [facility] [place] Immunizations Immunization Date Immunization Notes Care Provider Fa cility 12-22-2023 influenza, injectabl e, madin rogers canine kidney, preservative free Ignacio Cheatham MD Work Phone: [facility] 12-22-2023 influenza virus vacc ine, unspecified formulation Ignacio Cheatham MD Work Phone: [facility] 12-11-2023 COVID-19 vaccine, ag e 12+ yr (PFIZER-BIONTECH COMIRNATY) Tresa Blakelillian GUERREROBLOCK PAVER Work Phone: [facility] 02-25-2023 respiratory syncytia l virus (RSV) vaccine, bivalent (ABRYSVO) Ct (I-Stat) Work Phone: [facility] 02-18-2023 COVID-19 vaccine, ag e 12+ yr, season (MODERNA) Ct (I-Stat) Work Phone: [facility] 12-23-2022 Seasonal, quadrivale nt, recombinant, injectable influenza vaccine, preservative free Ignacio Cheatham MD Work Phone: [facility] 12-23-2022 influenza virus vacc ine, unspecified formulation Dorene Murillo MD Work Phone: [facility] 10-14-2022 Hepatitis B vaccine (recombinant), CpG adjuvanted Ct (I-Stat) Work Phone: [facility] 08-11-2022 pneumococcal (PCV20) vaccine, 20 valent (PREVNAR 20) Kaylin Carranza RN [facility] 03-21-2022 COVID-19 booster vaccine, age 12+ yr, bivalent (PFIZER-BIONTECH) Goldy Hunter DO Work Phone: [facility] 03-21-2022 influenza, injectabl e, quadrivalent, preservative free Goldy Dale DO Work Phone: [facility] 03-21-2022 influenza virus vacc ine, unspecified formulation Ignacio Cheatham MD Work Phone: [facility] 02-18-2021 influenza, injectabl e, quadrivalent, contains preservative Stacy Schmitz PA-C Work Phone: [facility] 03-16-2019 tuberculin skin test ; purified protein derivative solution, intradermal Xr Lito Work Phone: [facility] 02-21-2019 influenza, injectabl e, quadrivalent, contains preservative Stacy Bogner PA-C Work Phone: [facility] 02-21-2019 tuberculin skin test ; purified protein derivative solution, intradermal Xr Lito Work Phone: [facility] 12-28-2017 influenza, injectabl e, quadrivalent, contains preservative Stacy Bogner PA-C Work Phone: [facility] 06-22-2017 tuberculin skin test ; purified protein derivative solution, intradermal Xr Lito Work Phone: [facility] 06-15-2017 tuberculin skin test ; purified protein derivative solution, intradermal Xr Dover Work Phone: [facility] 06-08-2017 tuberculin skin test ; purified protein derivative solution, intradermal Xr [place] Work Phone: [facility] 11-25-2016 tetanus toxoid, redu calin diphtheria toxoid, and acellular pertussis vaccine, adsorbed Stacy Bogner PA-C Work Phone: [facility] 12-11-2014 influenza, seasonal, injectable Stacy Bogner PA-C Work Phone: [facility] 06-28-2013 tetanus toxoid, redu calin diphtheria toxoid, and acellular pertussis vaccine, adsorbed Stacy Bogner PA-C Work Phone: [facility] Work Phone: 02-04-2012 influenza virus vacc ine, unspecified formulation Stacy Bogner PA-C Work Phone: [facility] Work Phone: 12-14-2008 influenza virus vacc ine, unspecified formulation Stacy Bogner PA-C Work Phone: [facility] Work Phone: 11-30-2008 pneumococcal polysaccharide vaccine, 23 valent Stacy Bogner PA-C Work Phone: [facility] Payers Date Payer Category Payer Medicare (Managed Care) [employer] [id number] 2024 Private Health Insurance [id number] 2023 Self-pay [id number] 2023 Medicaid [id number] 2023 Private Health Insurance [id number] 2023 Private Health Insurance [employer]MANA [employer]NA MEDICAID [facility] [id number] 2023-Present [address] [place] [address] Medicaid [id number] 2022 Medicare [id number] 2022 Medicare [id number] 2020 Unknown [employer]M BLUE CARD PPO OOS [id number] 2020-Present [phone] [address] [place] [address] PPO [id number] 2020 Unknown AN[employer]M BLUE CARD PPO OOS [id number] 2020-Present [phone] [address] [place] [address] PPO [id number] 2020 Unknown [id number] 2017 Medicare [id number] Medicaid [id number] Unknown [id number] Unknown [id number] Unknown [id number] Unknown [id number] Unknown [id number] Unknown [id number] Unknown [id number] Unknown [id number] Unknown [id number] Social History Date Type Detail Facility Start: 08-28-2010 End: 12-11-2023 Tobacco smoking status NHIS Ex-smoker [facility] Work Phone: Start: 08-01-1983 End: 07-31-1989 History of tobacco use Current smoker [facility] Work Phone: Start: 08-01-1983 End: 07-31-1989 History of tobacco use Cigarette Smoker [facility] Work Phone: Start: 06-03-2021 End: 09-12-2024 Alcohol intake Ex-drinker (finding) [facility] Start: 08-15-2020 History SDOH Alcohol Comment rare [facility] Start: 04-25-2008 End: 10-15-2021 Tobacco Comment Quit at age 24 [facility] Start: 1965 Sex Assigned At Female C [facility] Start: 10-01-2020 End: 01-24-2022 Exposure to SARS-CoV-2 (event) Not sure [facility] Start: 07-03-2021 Education 21 [facility] Start: 07-29-2021 End: 06-29-2023 Tobacco smoking status NHIS Unknown if ever smoked [facility] Start: 12-06-[address] [facility] Start: 12-06-[address] [facility] Start: 07-04-[address] [facility] Start: 07-30-2021 End: 08-01-2022 History SDOH Alcohol Frequency 1 [facility] Start: 07-30-2021 History SDOH Alcohol Std Drinks 98 [facility] Start: 07-30-2021 End: 03-20-2022 History SDOH Social Connections Phone 5 [facility] Start: 07-30-2021 End: 08-01-2022 History SDOH Social Connections Get Together 4 [facility] Start: 07-30-2021 End: 03-20-2022 History SDOH Social Connections Orthodox 3 [facility] Start: 07-30-2021 End: 03-20-2022 History SDOH Social Connections Living 7 [facility] Start: 07-30-2021 End: 08-01-2022 History SDOH Physical Activity DPW 2 [facility] Start: 08-09-2021 End: 08-19-2021 Exposure to SARS-CoV-2 (event) Unable to assess [facility] Start: 08-28-2010 End: 12-21-2023 Cigarettes smoked current (pack per day) - Reported 2 [facility] Start: 08-28-2010 End: 12-11-2023 Tobacco use and exposure Smokeless tobacco non-user [facility] Start: 03-20-2022 History SDOH Alcohol Std Drinks 0 [facility] Start: 03-20-2022 End: 12-21-2023 Social connection and isolation panel [facility] Do you belong to any clubs or organizations such as synagogue groups, unions, fraternal or athletic groups, or school groups? Yes [facility] Are you now , , , , never or living with a partner? Never [facility] How often to you hav e a drink containing alcohol? Never [facility] How many standard drinks containing alcohol do you have on a typical day? Patient does not drink [facility] How hard is it for y ou to pay for the very basics like food, housing, medical care, and heating Not very hard [facility] Do you feel stress - tense, restless, nervous, or anxious, or unable to sleep at night because your mind is troubled all the time - these days [OSQ] To some extent [facility] (I/We) worried wheart er (my/our) food would run out before (I/we) got money to buy more. Never true [facility] In the past 12 month s, was there a time when you were not able to pay the mortgage or rent on time? No [facility] Start: 05-07-2021 Gender identity Identifies as female gender (finding) [facility] Start: 05-07-2021 Sexual orientation Heterosexual (harry dawn) [facility] How hard is it for y ou to pay for the very basics like food, housing, medical care, and heating Somewhat hard [facility] Start: 1965 Sex Assigned At Not on file S [facility] NEGATED: Highlighted row [facility] Medical Equipment Procedure Code Equipment Code Equipment Origin al Text Equipment Identifier Dates Insertion, intramedullary stephen, tibia ([id number]) Tibia nail, sterile [id number] FDA Start: 01-21-2023 Insertion, intramedullary stephen, tibia ([id number]) Orthopaedic bone screw, non-bioabsorbable, sterile ()[id number] FDA Start: 01-21-2023 Insertion, intramedullary stephen, tibia ([id number]) Orthopaedic bone screw, non-bioabsorbable, sterile ()[id number] FDA Start: 01-21-2023 Insertion, intramedullary stephen, tibia Orthopaedic bone screw, non-bioabsorbable, sterile ()[id number] FDA Start: 01-21-2023 Insertion, intramedullary stephen, tibia Orthopaedic bone screw, non-bioabsorbable, sterile ()[id number] FDA Start: 01-21-2023 [id number], [id number], [id number], [id number] Start: 05-17-2020 End: 09-14-2021 Comment on above: Test Two times a day . Insulin Dep? No E11.9 DM 2 Graft 4-7mm Standard Administrative Supervisor Perley-Spencer 45cm Vascular Stretch Sterile - [id number] Start: 07-24-2022 Bit 2.8mm 300mm 200mm Drill Quick Coupling Calibrated Nonsterile - [id number] Start: 06-12-2023 Jpq-Yw-Y-Kind Implant - [id number] Start: 06-12-2023 3.5mm Lcp Prox T ib Plt Low Bend 8h/128mm/Rt-St [id number] Start: 06-12-2023 Plate Lcp Contou r Stainless Steel 93mm Bone 4 Hole Fixed Angle Limited - [id number] Start: 06-12-2023 Fibergraft Bg Putty Bone Graft Substitute Syrince 6cc [id number] Start: 06-12-2023 Screw Lcp 3.5mm T15 Full Thread Stainless Steel 75mm Bone Lock Self Tap - [id number] Start: 06-12-2023 Screw Lc-Dcp Dcp 3.5mm 6mm Full Thread Stainless Steel 36mm Bone Self - [id number] Start: 06-12-2023 Screw Lcp 3.5mm T15 Full Thread Stainless Steel 70mm Bone Fix Angle Lock - [id number] Start: 06-12-2023 Screw Lc-Dcp Dcp 3.5mm 6mm Full Thread Hexagon Stainless Steel 30mm Bone - [id number] Start: 06-12-2023 Screw Lc-Dcp Dcp 3.5mm 6mm Full Thread Stainless Steel 32mm Bone Self - [id number] Start: 06-12-2023 Cement Simplex Bone High Viscosity - [id number] Start: 07-29-2023 Goals Date Patient Goal Desired Activity /State Personal health goal Functional Status Date Assessment Result Facility 08-07-2023 Are you deaf, or do you have serious difficulty hearing No 08/07/2023 11:12 AM Clare Molina RN No [facility] 08-07-2023 Are you blind, or do you have serious difficulty seeing, even when wearing glasses No 08/07/2023 11:12 AM Clare Molina RN No [facility] 08-07-2023 Do you have serious difficulty walking or climbing stairs Yes 08/07/2023 11:12 AM Clare Molina RN Yes [facility] 08-07-2023 Do you have difficul ty dressing or bathing Yes 08/07/2023 11:12 AM Clare Molina RN Yes [facility] 08-07-2023 Because of a physica l, mental, or emotional condition, do you have difficulty doing errands alone such as visiting a physician's office or shopping Yes 08/07/2023 11:12 AM Clare Molina RN Yes [facility] 01-29-[address] [facility] Work Phone: 09-12-[address] [facility] [facility] Work Phone: Mental Status Date Assessment Result Facility 08-07-2023 Because of a physica l, mental, or emotional condition, do you have serious difficulty concentrating, remembering, or making decisions No 08/07/2023 11:12 AM Clare Molina RN No [facility] 07-02-2023 Cognitive function Voice/Name [facility] Work Phone: 06-29-2023 Cognitive function Level Of Cons ciousness Awake;Alert;Appropriate [facility] Work Phone: 02-04-2023 Cognitive function Level Of Cons ciousness Awake;Alert;Appropriate;Fol lows Commands [facility] Work Phone: 01-29-2023 Cognitive function Voice/Name [facility] Work Phone: 10-30-2022 Cognitive function Voice/Name [facility] Work Phone: 09-12-2022 Cognitive function Awake;Alert;Appropriat e [facility] Work Phone: 09-11-2022 Cognitive function Voice/Name [facility] Work Phone: 07-29-2021 Cognitive function Level Of Cons ciousness Awake;Alert;Appropriate;Fol lows Commands [facility] Work Phone: Clinical Notes 04-16-2017 to 09-22-2024 [...] it is not convenient. Diana Brand RN [facility] 09-22-2024 Miscellaneous Notes Patient returns call from [...] PA over the phone. PA Authorization # [id number] good for 03/02/2024 to 03/01/2025. Called Pt earlier to [employer] phone out of service. Did speak with EC and they will have Pt call back. Please notifie Pt PA was approved. Nataly Burns LPN [employer] A PA has been received via fax. Requested by: Joshua Callback #: Medication: Pregabalin Dosage: 25 mg Soriano: [id number] documented in this encounter [facility] 09-20-2024 Telephone encounter Note Tried to complete through Cover My Meds. Did not recognized Pt. Called [employer] and did PA over the phone. PA Authorization # [id number] good for 03/02/2024 to 03/01/2025. Called Pt earlier to [employer] phone out of service. Did speak with EC and they will have Pt call back. Please notifie Pt PA was approved. Nataly Burns LPN [facility] 09-19-2024 Telephone encounter Note [employer] A PA has been received via fax. Requested by: Joshua Callback #: Medication: Pregabalin Dosage: 25 mg Soriano: [id number] [facility] 09-12-2024 Telephone encounter Note Rx refilled Alondra Chung APRN.[facility] PDMP website checked and validated. All prescriptions have been APPROPRIATELY filled. No suspicious activity was identified. 09/12/2024 by Alondra Chung APRN.CNP [facility] 09-12-2024 Miscellaneous Notes Rx refilled Alondra Chung [...] 2024 12:47 PM documented in this encounter [facility] 09-12-2024 History of Presen t illness Narrative Images from the original note were not included. . [facility] Note Patient name: Margareth Gonzalez PCP: Ignacio Cheatham MD Referring Physician: Kristy Marcum CNP Recording using [employer] software for draft documentation of the visit was discussed with the patient/authorized aircraft sales representative; all questions welcomed and answered. Patient/authorized aircraft sales representative agreed to proceed CC: lung nodules HPI: Margareth Gonzalez 59 year old female former remote [id number] smoker quitting in 1989 with PMH significant [...] She was just seen in ED at [facility] for sob and chest pain. CTA chest [...] DATE OF EXAM: Jul 27 2024 2:44PM [facility] 0541 - CT CHEST WO IVCON / [...] seen within the chest. Chest CT 04/2023: [facility] Imaging Services [address] [place] [id number] CTA Chest W/WO Contrast MR#: [id number] Acct: [id number] Name: Margareth GONZALEZ Rep #: [id number] : 1965 F 59 From: [facility] [...] of hemorrhage Allergic rhinitis Anaphylaxis Anemia Asthma ([facility]) Back pain Benign essential tremor Bipolar I disorder, most recent episode (or current) unspecified sectrum Bone mass Candidiasis, intertrigo Chronic kidney disease Contraceptive management Depression Diabetes ([facility]) Diarrhea DVT, lower extremity ([facility]) 08/2014 Right leg (6) Esophagitis ESRD (end stage renal disease) ([facility]) 07/03/2022 Facial fracture due to fall ([facility]) Fatigue Fibromyalgia Fracture Fracture of shaft of fibula GERD (gastroesophageal reflux disease) HLD (hyperlipidemia) on tricor Hyperlipidemia Hypertension Hypomagnesemia Hypopotassemia IBS (irritable bowel syndrome) Insomnia Intertrigo Knee pain Morbid obesity ([facility]) 03/11/2011 Myalgia Nausea Neck pain [...] nausea/vomiting. CPAP/BIPAP/OTHER APAP 5-20 cmH2O [facility] Blood-Glucose Meter (ONETOUCH VERIO FLEX METER) [...] PATIENT Blood-Glucose Meter,Continuous (FREESTYLE FESTUS 3 READER) [facility] [place] Dispense one reader kit. E11.9 DIALYSIS PATIENT hydrOXYzine HCl (ATARAX) 50 mg tablet Take 1 tablet by mouth every 6 hours as needed for itching/rash. acetaminophen (TYLENOL) 500 mg tablet Take 1,000 mg by mouth every 12 hours. melatonin 5 mg tablet Take 5 mg by mouth. As needed. Prdytzoe-Iu-Fun-Fe-FA ( VITAMIN) ORAL Tab Take 1 tablet [...] which included preparing to see the patient, jfut-ka-cirk patient care, completing clinical documentation, obtaining and/or reviewing separately obtained history, performing a medically appropriate examination, ordering medications, tests, or procedures, and independently interpreting results (not separately reported). Liz Ferreira MD [facility] documented in this encounter [facility] 09-12-2024 Note HNO ID: [id number] Author: LIZ FERREIRA MD Service: ? Author Type: Physician Type: Progress Notes Filed: 09/12/2024 14:25 Note Text: . [facility] Note Patient name: Margareth Gonzalez PCP: Ignacio Cheatham MD Referring Physician: Kristy Marcum CNP Recording using Futurlink software for draft documentation of the visit was discussed with the patient/authorized aircraft sales representative; all questions welcomed and answered. Patient/authorized aircraft sales representative agreed to proceed CC: lung nodules HPI: Margareth Gonzalez 59 year old female former remote [id number] smoker quitting in 1989 with PMH significant [...] She was just seen in ED at [facility] for sob and chest pain. CTA chest [...] DATE OF EXAM: Jul 27 2024 2:44PM [facility] 0541 [facility] IMPRESSION: Although many of the pulmonary [...] seen within the chest. Chest CT 04/2023: [facility] Imaging Services [address] [place] [address] CTA Chest W/WO Contrast MR#: [id number] Acct: [id number] Name: Margareth GONZALEZ Rep #: [id number] : 1965 F 59 From: Frank Tabor [...] of hemorrhage Allergic rhinitis Anaphylaxis Anemia Asthma ([facility]) Back pain Benign essential tremor Bipolar I disorder, most recent episode (or current) unspecified sectrum Bone mass Candidiasis, intertrigo Chronic kidney disease Contraceptive management Depression Diabetes ([facility]) Diarrhea DVT, lower extremity ([facility]) 08/2014 Right leg (6) Esophagitis ESRD (end stage renal disease) ([facility]) 07/03/2022 Facial fracture due to fall ([facility]) Fatigue Fibromyalgia Fracture Fracture of shaft of fibula GERD (gastroesophageal reflux disease) HLD (hyperlipidemia) on tricor Hyperlipidemia Hypertension Hypomagnesemia Hypopotassemia IBS (irritable bowel syndrome) Insomnia Intertrigo Knee pain Morbid obesity ([facility]) 03/11/2011 Myalgia Nausea Neck pain [...] with ophthalmic manif (more content not included)... [facility] 09-12-2024 Telephone encounter Note Prescription Refill [...] Burns LPN September 12, 2024 12:47 PM [facility] 09-07-2024 Telephone encounter Note agree [facility] 09-07-2024 Miscellaneous Notes agree Patient calling to state she was taken to [facility] ER yesterday via squad due to shortness [...] Georgina Salmon RN documented in this encounter [facility] 09-07-2024 Telephone encounter Note Patient calling to state she was taken to [facility] ER yesterday via squad due to shortness [...] as this call ended. Georgina Salmon RN [facility] 09-06-2024 Discharge summary [facility] 09-06-2024 Radiology Diagnostic study note [facility] Imaging Services [address] [place] [address] CTA Chest W/WO Contrast MR#: [id number] Acct: [id number] Name: Margareth GONZALEZ Rep #: [id number] : 1965 F 59 From: Zana Tabor MD PCP: Dr. Ignacio Cheatham MD Status: REG E R Study:CTA Chest W/WO Contrast Date of Exam: 09/06/24 Exam# [id number] Ordering Dr: Dot Robertson MD PROCEDURE: CTA [...] pleural effusions. Mild pericardial effusion. Reading Location: [id number] CC: Dr. Johnathon Robertson MD; Dr. Ignacio Cheatham MD ~ Archival Records Clerk: Signed [facility] 09-06-2024 Radiology Diagnostic study note [facility] Imaging Services [address] [place] [address] Chest 1 View (Portable) MR#: [id number] Acct: [id number] Name: Margareth GONZALEZ Rep #: [id number] : 1965 F 59 From: Zana Tabor MD PCP: Dr. Ignacio Cheatham MD Status: REG E R Study:Chest 1 View (Portable) Date of Exam: 09/06/24 Exam# [id number] Ordering Dr: Dot Robertson MD PROCEDURE: CHEST [...] IMPRESSION: Pulmonary findings as above. Reading Location: [id number] CC: Dr. Johnathon Robertson MD; Dr. Ignacio Cheatham MD ~ Archival Records Clerk: Signed [facility] 09-06-2024 Telephone encounter Note patient called in stating that she had Shortness of Breath and chest pain since Thursday and s/s seem to be getting worse. Patient was wanting an appt, but has been referred to the ER for evaluation due to s/s. patient agreed and verbalized understanding. [facility] 09-06-2024 Miscellaneous Notes patient called in stating that she had Shortness of Breath and chest pain since Thursday and s/s seem to be getting worse. Patient was wanting an appt, but has been referred to the ER for evaluation due to s/s. patient agreed and verbalized understanding. documented in this encounter [facility] 09-06-2024 Discharge summary Note Date/Time September 06, 2024 11:26pm [facility] Medical Records Department [address] [place] [address] Emergency Department Summary 09/06/24 MR#: [id number] Acct: [id number] Name: Margareth GONZALEZ Rep #:[id number] : 1965 59 From: Johnathon Robertson [...] Risk Factors: Negative for Marfan's Syndrome [facility] Medical History Fracture of fibula, right, closed [...] Type Severity Reaction Status Date / Time [facility] Allergy Unknown UNKNOWN Verified 09/06/24 18:45 mold [...] forearm it has a palpable pulse. Normal head of mathematics strength. Normal dorsi plantarflexion. Back nontender. Neurologically [...] (Auto) 69.2 Lymph % (Auto) 18.7 L Camas % (Auto) 7.5 Eos % (Auto) 3.7 [...] IMPRESSION: Pulmonary findings as above. Reading Location: [place] [address] Chest CTA 09/06/24 21:31 IMPRESSION: No pulmonary embolism. Probable pulmonary edema. Moderate bilateral pleural effusions. Mild pericardial effusion. Reading Location: [place] [address] Chest x-ray, single view, portable, interpreted by myself the radiologist shows normal cardiac silhouette. Bilateral pulmonary edema. Rhythm Strip Rhythm Strip: Sinus Tach Rate: 114 Ectopy: None EKG Initial EKG: Attestation: I personally reviewed and interpreted this EKG as follows: Interpretation: No Acute Injury Pattern and Sinus Tachycardia Comments: Sinus tachycardia rate of 114 no acute signs of UT. Inverted T waves in lead V5 and [...] are feeling a lot worse. Print Language: Ukrainian Disposition Disposition: Home, Self Care What to do if you have Problems For any increased pain, shortness of breath, bleeding, nausea or vomiting, chestpain, or any unexpected problems, contact your Primary Care Provider. Call [facility] ([phone]) or report to the closest Emergency Room. Call 911 if necessary. 09/06/247 <Electronically signed by Johnathon Robertson MD> Cosigner Signature (if applicable): CC: Dr. Ignacio Cheatham MD ~ Signed [facility] Work Phone: 1(310) 430-700306-25-2025 Telephone encounter Note* Telephone Encounter - Chloe [...] take elevator to 1st floor surge area. [facility]06-25-2025 Miscellaneous Notes* Telephone Encounter - Chloe Ellington [...] 1st floor surge area. documented in this encounterC[facility]06[facility] Telephone encounter Note * Telephone Encounter - Ashley Fraire - 08/15/2024 1:43 PM EDT Spoke to patient to move her fistulagram to August 26 because that is when he can get transpiration. Encounter closed. [facility] Work Phone: 1(800) 857-237206-16-2025 Miscellaneous Notes* Telephone Encounter - Ashley Fraire [...] a message Please call patient to reschedule [phone] documented in this encounterC[facility]06-[facility]-20[facility] Telephone encounter Note * Telephone Encounter - Ashley Fraire - 08/15/2024 11:33 AM EDT Spoke to patient to offer a new date, she will check with her transportation and call back. [facility]06-13-2025 Telephone encounter Note* Telephone Encounter - Jenni Castro RN - 08/12/2024 4:13 PM EDT Patient calling, she is scheduled for fistulagram on 08/19 however needs to change the time from 1245 to 9 am if possible Attempted to call patient but unable to leave a message Please call patient to reschedule [phone] [facility]06-11-2025 Instructions* Patient Instructions* Hever Cheema APRN.CNP - [...] chest pain, dizziness and abdominal pain Allyssa áVzquez NP student TEACHING PROVIDER (Physician/PA/MOLDER TRIMMER) NOTE OF PERSONAL INVOLVEMENT IN CARE: I have personally seen and examined the patient and performed the medical decision-making components. I have reviewed the Advanced Practice Registered Nurse (MOLDER TRIMMER) Student's documentation and verified the findings in the note as written. Any additions or changes are noted in bold/italics. Signature: Hever Cheema Date: 08/10/2024 Time: 2:48 PM documented in this encounterCleveland Clinic [facility]06-11-2025 NoteHNO ID: [id number] Author: HEVER CHEEMA APRN.BLOCK PAVER Service: ? Author Type: Nurse Practitioner Type: Progress Notes Filed: 08/10/2024 14:49 Note Text: Subjective Patient ID: Arnold is a 59 year old female who presents for No chief complaint on file.. The history is provided by the patient. No j2ee android developer was used. Patient presents to clinic via [...] Depression Diabetes (HCC) Diarrhea DVT, lower extremity ([facility]) 08/2014 Right leg (6) Esophagitis ESRD (end stage renal disease) ([facility]) 07/03/2022 Facial fracture due to [...] Flavor MEDICATIONS CPAP/BIPAP/OTHER APAP 5-20 cmH2O DME [facility] Blood-Glucose Meter (ONETOUCH VERIO FLEX METER) [...] Two tablets by mouth (more content not included)...[facility]06-11-2025 History of Present illness Narrative* Hever Cheema APRN.BLOCK PAVER - 08/10/2024 1:23 PM EDT Subjective Patient ID: Arnold is a 59 year old female who presents for No chief complaint on file.. The history is provided by the patient. No j2ee android developer was used. Patient presents to clinic via [...] nausea r/t IBS Missed HD yesterday via [employer] Last HD on Sunday 08/06 access left forearm No smoking, ETOH nor street drugs PAST MEDICAL HISTORY Diagnosis Date Acute gastritis without mention of hemorrhage Allergic rhinitis Anaphylaxis Anemia Back pain Benign essential tremor Bipolar I disorder, most recent episode (or current) unspecified sectrum Bone mass Candidiasis, intertrigo Chronic kidney disease Contraceptive management Depression Diabetes ([facility]) Diarrhea DVT, lower extremity ([facility]) 08/2014 Right leg (6) Esophagitis ESRD (end stage renal disease) ([facility]) 07/03/2022 Facial fracture due to fall ([facility]) Fatigue Fibromyalgia Fracture Fracture of shaft of fibula GERD (gastroesophageal reflux disease) HLD (hyperlipidemia) on tricor Hyperlipidemia Hypertension Hypomagnesemia Hypopotassemia IBS (irritable bowel syndrome) Insomnia Intertrigo Knee pain Morbid obesity ([facility]) 03/11/2011 Myalgia Nausea Neck pain [...] Benadryl [Diphenhydramine Hcl], Codeine, Lisinopril, Mold, Nsaids (Xdh-LbjcxxgkqYspy-Bjlvvosnmkmt Drug), Penicillins, Seasonal Allergies, Tetracycline, Vanilla Extract, and Vanilla Extract Flavor MEDICATIONS CPAP/BIPAP/OTHER APAP 5-20 cmH2O DME [facility] Blood-Glucose Meter (NeedishUCH VERIO FLEX METER) Dispense one meter kit. [...] Take 5,000 Units by mouth twice daily. Bzwfqdpj-Tu-Ani-Fe-FA ( VITAMIN) ORAL Tab Take 1 tablet [...] pain Allyssa Vázquez NP student TEACHING PROVIDER (Physician/PA/MOLDER TRIMMER) NOTE OF PERSONAL INVOLVEMENT IN CARE: I have personally seen and examined the patient and performed the medical decision-making components. I have reviewed the Advanced Practice Registered Nurse (MOLDER TRIMMER) Student's documentation and verified the findings in the note as written. Any additions or changes are noted in bold/italics. Signature: Hever Cheema Date: 08/10/2024 Time: 2:48 PM documented in this encounterC[facility]06-[facility]-2025 Telephone encounter Note * Telephone Encounter - [...] James Mc August 04, 2024 2:04 PM [facility]06-05-2025 Miscellaneous Notes* Telephone Encounter - James Sutherland [...] 04, 2024 2:04 PM documented in this encounterC[facility] Clinic [facility]06-04-2025 Telephone encounter Note * Telephone Encounter - Maria Eugenia Palencia OCCA - 08/03/2024 10:29 AM EDT Netta requested duplex and notified of Dr Jackson's response via fax. Transmission complete to [phone]. [facility]06-04-2025 Miscellaneous Notes* Telephone Encounter - Maria Eugenia Palencia OCCA - 08/03/2024 10:29 AM EDT Netta requested duplex and notified of Dr Jackson's response via fax. Transmission complete to [phone]. * Telephone Encounter - Jenni Castro RN [...] and call with results documented in this encounterCleveland Clinic [facility]06-03-2025 Telephone encounter Note * Telephone Encounter - Kelly Mcmahan LPN - 08/02/2024 9:47 AM EDT Called the pharmacy and they report pt picked this rx up 07/26/24 with no copay. [facility]06-03-2025 Miscellaneous Notes* Telephone Encounter - Kelly Mcmahan [...] Carpenter LPN - 08/01/2024 3:25 PM EDT [facility] sends fax that Trulicity requires a prior authorization. See paper with alternatives. Patient did see endo but looks like was referred back to PCP? documented in this encounterC[facility]06-[facility]-2025 Telephone encounter Note * Telephone Encounter - Kelly Mcmahan LPN - 08/02/2024 8:35 AM EDT Trulicity was filed by Honey Frazier. We have no pharmacy benefit on file for pt. Can call the pharmacy to see if there are issues with this. If PA is needed will see if Endo is doing it. Would need to do on covermymeds. [facility]06-02-2025 Telephone encounter Note* Telephone Encounter - Ignacio Cheatham MD - 08/01/2024 4:44 PM EDT The alternatives are insulin which is not in any way related to trulicity. She has been treated effectively with a glp-1 and switching would be detrimental [facility]06-02-2025 Telephone encounter Note* Telephone Encounter - Chloe Carpenter LPN - 08/01/2024 3:25 PM EDT [facility] sends fax that Trulicity requires a prior authorization. See paper with alternatives. Patient did see endo but looks like was referred back to PCP? [facility]06-02-2025 Telephone encounter Note* Telephone Encounter - Diana Brand RN - 08/01/2024 9:00 AM EDT [facility] with [facility] calls to let provider know that they are out of network for C- pap orders that were received. Call placed to patient and notified. She requests orders just be sent to [facility] as she knows they are in Network. Faxed per request to [facility] at [phone]. Diana Brand RN [facility]06-02-2025 Miscellaneous Notes* Telephone Encounter - Diana Brand RN - 08/01/2024 9:00 AM EDT [facility]riber[facility] with [facility] calls to let provider know that they are out of network for C- pap orders that were received. Call placed to patient and notified. She requests orders just be sent to [facility] as she knows they are in Network. Faxed per request to [facility] at [phone]. Diana Brand RN * Telephone Encounter - Nataly Burns LPN - 08/01/2024 8:39 AM EDT Faxed CPAP new device order to [facility] [place]. Nataly Burns LPN * Telephone Encounter - Alondra Chung APRN.CNP - 07/29/2024 4:33 PM EDT Order printed for PAP for [facility] Alondra Chung APRN.BLOCK PAVER * Telephone Encounter - Nataly Burns LPN - 07/29/2024 3:53 PM EDT Patient notified of results, verbalizes understanding of instructions. She would like to change DME to [facility]. Nataly Burns LPN * Telephone Encounter [...] her CT Chest results that Tresa Marcum ROLLING MACHINE OPERATOR had her getdone. Patient said she is not going to set up an appt with Pulmonary right now. She has dialysis and the nurses there check her lungs 3 times weekly, and she will have issues getting appt with all ofher dialysis days. I had went over notes from Tresa Marcum again with her and told ROLLING MACHINE OPERATOR wants her to see Pulmonary, she still did not want to schedule an appt. Patient said she is having problems getting her CPAP and may have to change DME providers. She wanted to know if the results of the CT would change any of her settings on her PAP device? Please advise documented in this encounterC[facility]06-02-2025 Telephone encounter Note * Telephone Encounter - Nataly Burns LPN - 08/01/2024 8:39 AM EDT Faxed CPAP new device order to [facility]. Nataly Burns LPN [facility]2025 NoteHNO ID: [id number] Author: NATALY BURNS LPN Service: ? Author Type: LICENSED NURSE Type: Progress Notes Filed: 07/29/2024 16:41 Note Text: [facility] Tele[facility] encounter Note* Telephone Encounter - Alondra Chung APRN.CNP - 07/29/2024 4:33 PM EDT Order printed for PAP for [facility] Alondra Chung APRN.CNP [facility]2025 Telephone encounter Note* Telephone Encounter - Nataly Burns LPN - 07/29/2024 3:53 PM EDT Patient notified of results, verbalizes understanding of instructions. [facility] Nataly Burns LPN [facility]2025 Telephone encounter Note* Telephone Encounter - Alondra Chung APRN.CNP - 07/29/2024 3:12 PM EDT No, the CT chest results don't change my CPAP order. Does she need us to use a DME other than [facility]? Alondra Chung APRN.NOY [facility]2025 Telephone encounter Note* Telephone Encounter - Arnold [...] Tresa Marcum again with her and told ROLLING MACHINE OPERATOR wants her to see Pulmonary, she still did not want to schedule an appt. Patient said she is having problems getting her CPAP and may have to change DME providers. She wanted to know if the results of the CT would change any of her settings on her PAP device? Please advise [facility]2025 Telephone encounter Note* Telephone Encounter - Tresa Marcum APRN.CNP - 07/29/2024 1:52 PM EDT Pulm referral entered. Please help schedule. Tresa Marcum APRN.CNP [facility]2025 Miscellaneous Notes* Telephone Encounter - Tresa Marcum [...] proceed with pulmonology referral. documented in this encounterC[facility]2025 Telephone encounter Note * Telephone Encounter - Omkar Cornejo LPN - 07/29/2024 1:42 PM EDT TC to pt, phone call was very limited d/t static on the line. Pt notified of results/provider response. Pt is agreeable to Pulm referral. [facility]2025 Telephone encounter Note* Telephone Encounter - Tresa [...] would like to proceed with pulmonology referral. [facility]05-29-2025 Telephone encounter Note* Telephone Encounter - Jenni [...] get fistula ultrasound and call with results [facility]05-28-2025 History of Present illness Narrative* Felix Edmondson [...] PATIENT PRESENTS WITH AN IMPLANTABLE OR ATTACHED HIGH CLIMBER: No RADIOLOGY DEPARTMENT: CT; Exam(s) Completed: Chest PERIPHERAL IV DATA: Not applicable SIGNED BY: RT Howie(May) July 27, 2024 3:46 PM documented in this encounterCleveland Clinic [facility]05-28-2025 NoteHNO ID: [id number] Author: FELIX EDMONDSON RT(R) Service: ? Author Type: Motors And Generators Inspector Type: Progress Notes Filed: 07/27/2024 15:46 Note [...] PATIENT PRESENTS WITH AN IMPLANTABLE OR ATTACHED HIGH CLIMBER: No RADIOLOGY DEPARTMENT: CT; Exam(s) Completed: Chest PERIPHERAL IV DATA: Not applicable SIGNED BY: RT Howie(R) July 27, 2024 3:46 [facility]05-12-2025 NoteHNO ID: [id number] Author: GEGE MCCRARY OD Service: ? Author Type: CHIEF MEDIA OFFICER Type: Progress Notes Filed: 07/11/2024 16:27 Note Text: 1. 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, with long-term current use of insulin (HCC) Both eyes s/p Pars plana vitrectomy / Panretinal laser photocoagulation Posterior chamber intraocular lens Both eyes. Recommended tight BS control Educated patient to continue care with primary care doctor and/or food counter worker to maintain optimum levels as they are [...] Gege Mccrary, PB July 11, 2024 4:46 [facility]05-12-2025 History of Present illness Narrative* Gege Mccrary, OD - 07/11/2024 4:26 PM EDT 1. 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, with long-term current use of insulin (HCC) Both eyes s/p Pars plana vitrectomy / Panretinal laser photocoagulation Posterior chamber intraocular lens Both eyes. Recommended tight BS control Educated patient to continue care with primary care doctor and/or food counter worker to maintain optimum levels as they are important to avoid ocular complications. Encouraged patient to call the officeimmediately with any changes to vision or visual concerns. Advised to not wait until the next scheduled exam. 2. Presbyopia 3. Pseudophakia of both eyes Continue with OTC readers Urged patient to follow-up in 6 months for dilated exam or AMTTEO with any changes in vision Gege Mccrary, OD July 11, 2024 4:46 PM documented in this encounterCleveland [facility]05-07-2025 Telephone encounter Note * Telephone Encounter - Audra Sparks MA - 07/06/2024 2:55 PM EDT Cover My Meds prior auth soriano [id number] required. Audra Sparks MA [facility]05-07-2025 Miscellaneous Notes* Telephone Encounter - Audra Sparks MA - 07/06/2024 2:55 PM EDT Cover My Meds prior auth soriano [id number] required. Audra Sparks MA documented in this encounterCleveland Clinic [facility]05-07-2025 Note* Addendum Note - Trinidad Frazier APRN.CNP - 07/06/2024 2:03 PM EDTAddended by: TRINIDAD FRAZIER on: 07/06/2024 02:03 PM Modules accepted: Orders [facility]05-07-2025 Miscellaneous Notes* Addendum Note - Trinidad Frazier APRN.CNP - 07/06/2024 2:03 PM EDTAddended by: TRINIDAD FRAZIER on: 07/06/2024 02:03 PM Modules accepted: Orders documented in this encounterCleveland Clinic [facility]05-07-2025 History of Present illness Narrative* Trinidad Frazier [...] Chronic kidney disease Contraceptive management Depression Diabetes ([facility]) Diarrhea DVT, lower extremity ([facility]) 08/2014 Right leg (6) Esophagitis ESRD (end stage renal disease) ([facility]) 07/03/2022 Facial fracture due to fall ([facility]) ([facility]) Fatigue Fibromyalgia Fracture Fracture of shaft of fibula GERD (gastroesophageal reflux disease) HLD (hyperlipidemia) on tricor Hyperlipidemia Hypertension Hypomagnesemia Hypopotassemia IBS (irritable bowel syndrome) Insomnia Intertrigo Knee pain Morbid obesity ([facility]) 03/11/2011 Myalgia Nausea Neck pain [...] mouth. As needed. flash glucose scanning reader (Ecloud ([place]) Information and TechnologySTYLE FESTUS 2 READER) Use to check glucose [...] Take 81 mg by mouth every morning.) Sjcmwvac-Aq-Ukn-Fe-FA ( VITAMIN) ORAL Tab Take 1 tablet [...] Plan: Trinidad Frazier CNP documented in this encounterCleveland Clinic [facility]05-07-2025 NoteHNO ID: [id number] Author: TRINIDAD FRAZIER APRN.CNP Service: ? Author Type: Nurse Practitioner [...] Recent Labs 04/21/20 0859 (more content not included)...[facility]05-06-2025 Telephone encounter Note* Telephone Encounter - Nataly Burns LPN - 07/05/2024 1:27 PM EDT Pt dose not have message machine. My chart message sent. Nataly Burns LPN [facility]05-06-2025 Miscellaneous Notes* Telephone Encounter - Nataly Burns [...] EDT Please send her PAP order [place] [facility] [place]. Please let pt know you checked and [employer] takes her insurance. Alondra Chung APRN.NOY documented in this encounterCleveland Clinic Hillcre[facility]05-06-2025 Telephone encounter Note * Telephone Encounter - Nataly Burns LPN - 07/05/2024 10:13 AM EDT Yes. [employer] dose take Pt insurance. Order has been faxed. Nataly Burns LPN [facility]05-06-2025 Telephone encounter Note* Telephone Encounter - Alondra Chung APRN.CNP - 07/05/2024 9:33 AM EDT Please send her PAP order to [facility]. Please let pt know you checked and [facility] takes her insurance. Alondra Chung APRN.CNP [facility]05-05-2025 Instructions* Patient Instructions* Alondra Chung APRN.CNP - [...] your sleep patterns and any disturbances; use [employer] to send updates and share any concerns. A follow-up visit will be scheduled within 31 to 90 days after you start CPAP therapy to review your response to the therapy and medication adjustments. documented in this encounterCleveland Clinic Hillcrest Hospital05-05-2025 History of Present illness Narrative* Alondra Chung APRN.CNP - 07/04/2024 2:30 PM EDT Images from the original note were not included. [facility] New Patient Evaluation PATIENT NAME: Margareth Gonzalez DATE OF SERVICE: July 03, 2024 Recording using ambient Nutr[employer] software for draft documentation of the visit was discussed with the patient/authorized aircraft sales representative; all questions welcomed and answered. Patient/authorized aircraft sales representative agreed to proceed CONSULTING PROVIDER: Sha Myrick [address] [facility] [id number] REASON FOR CONSULT: Sha Myrick sends the [...] dialysis for 2 years, attends sessions at [facility]. - Receives iron and Mircera typically every [...] Chronic kidney disease Contraceptive management Depression Diabetes ([facility]) Diarrhea DVT, lower extremity ([facility]) 08/2014 Right leg (6) Esophagitis ESRD (end stage renal disease) ([facility]) 07/03/2022 Facial fracture due to fall ([facility]) Fatigue Fibromyalgia Fracture Fracture of shaft of fibula GERD (gastroesophageal reflux disease) HLD (hyperlipidemia) on tricor Hyperlipidemia Hypertension Hypomagnesemia Hypopotassemia IBS (irritable bowel syndrome) Insomnia Intertrigo Knee pain Morbid obesity ([facility]) 03/11/2011 Myalgia Nausea Neck pain [...] Mixed Hyperlipidemia Esrd (End Stage Renal Disease) ([facility]) Hyperkalemia Thrombophlebitis of Superficial Veins of [...] Take 81 mg by mouth every morning.) Gyvlpyfm-Eq-Eaj-Fe-FA ( VITAMIN) ORAL Tab Take 1 tablet [...] hemodialysis for 2 years, receiving treatment at [facility]. Regularly receives iron infusions and Mircera. Hemoglobin [...] patients. Alondra Chung APRN.NOY documented in this encounterCleveland Clinic Hillcrest Hospital05-05-2025 NoteHNO ID: [id number] Author: ALONDRA CHUNG APRN.CNP Service: ? Author Type: Nurse Practitioner Type: Progress Notes Filed: 07/04/2024 17:14 Note Text: [facility] New Patient Evaluation PATIENT NAME: Margareth Gonzalez DATE OF SERVICE: July 03, 2024 Recording using Futurlink software for draft documentation of the visit was discussed with the patient/authorized aircraft sales representative; all questions welcomed and answered. Patient/authorized aircraft sales representative agreed to proceed CONSULTING PROVIDER: Sha Myrick [address] [facility] [id number] REASON FOR CONSULT: Sha Myrick sends the [...] dialysis for 2 years, attends sessions at [facility]. - Receives iron and Mircera typically every [...] - Interpretation: Mild ob (more content not included)...[facility]04-09-[facility] Telephone encounter Note* Telephone Encounter - Tresa Marcum APRN.CNP - 06/08/2024 7:14 PM EDT Scripts sent. Tresa Marcum APRN.CNP [facility]04-09-2025 Miscellaneous Notes* Telephone Encounter - Tresa Marcum APRN.CNP - 06/08/2024 7:14 PM EDT Scripts sent. Tresa Marcum APRN.CNP * Telephone Encounter - Fabiola Jesus RN - 06/08/2024 12:36 PM EDT Patient calls and states that prescription needs to have diagnosis code. Please send in new prescription with diagnosis code. Fabiola Jesus RN documented in this encounterCleveland Clinic Hill[facility] Hospital04-09-2025 Telephone encounter Note * Telephone Encounter - Fabiola Jesus RN - 06/08/2024 12:36 PM EDT Patient calls and states that prescription needs to have diagnosis code. Please send in new prescription with diagnosis code. Fabiola Jesus RN [facility]04-02-2025 NoteHNO ID: [id number] Author: TRESA MARCUM APRN.BLOCK PAVER Service: ? Author Type: Nurse Practitioner Type: [...] dialysis three times a week. - Sees hazardous substances scientist every other month and CMP monthly. - [...] Chronic kidney disease Contraceptive management Depression Diabetes ([facility]) Diarrhea DVT, lower extremity ([facility]) 08/2014 Right leg (6) Esophagitis ESRD (end stage renal disease) ([facility]) 07/03/2022 Facial fracture due to fall ([facility]) ([facility]) Fatigue Fibromyalgia Fracture Fracture of shaft of fibula GERD (gastroesophageal reflux disease) HLD (hyperlipidemia) on tricor Hyperlipidemia Hypertension Hypomagnesemia Hypopotassemia IBS (irritable bowel syndrome) Insomnia Intertrigo Knee pain Morbid obesity ([facility]) 03/11/2011 Myalgia Nausea Neck pain [...] tablet Take 3 t (more content not included)...[facility]04-02-[facility] History of Present illness Narrative* Tresa Marcum APRN.BLOCK PAVER - 06/01/2024 4:48 PM EDT This is [...] dialysis three times a week. - Sees hazardous substances scientist every other month and CMP monthly. - [...] Chronic kidney disease Contraceptive management Depression Diabetes ([facility]) Diarrhea DVT, lower extremity ([facility]) 08/2014 Right leg (6) Esophagitis ESRD (end stage renal disease) ([facility]) 07/03/2022 Facial fracture due to fall ([facility]) ([facility]) Fatigue Fibromyalgia Fracture Fracture of shaft of fibula GERD (gastroesophageal reflux disease) HLD (hyperlipidemia) on tricor Hyperlipidemia Hypertension Hypomagnesemia Hypopotassemia IBS (irritable bowel syndrome) Insomnia Intertrigo Knee pain Morbid obesity ([facility]) 03/11/2011 Myalgia Nausea Neck pain [...] time ALLERGIES Vicodin [Hydrocodone-Acetaminophen], Balsam 115, Balsam Blaine, Barium Sulfate, Benadryl Allergy Decongestant, Benadryl [Diphenhydramine Hcl], Codeine, Lisinopril, Mold, Nsaids (Kqf-VrvjxiozeImpc-Qexheowejlxe Drug), Penicillins, Seasonal Allergies, Tetracycline, Vanilla Extract, [...] mouth. As needed. flash glucose scanning reader (Ecloud ([place]) Information and TechnologySTYLE FESTUS 2 READER) Use to check glucose [...] Take 81 mg by mouth every morning.) Vzxmnsji-Pu-Ohq-Fe-FA ( VITAMIN) ORAL Tab Take 1 tablet [...] extremities (R29.898) - Referral for hydrotherapy at [facility] to improve leg strength. 13. End stage [...] The patient consented to the use of Futurlink software for draft documentation of the visit consistent with [facility] s Notice of Privacy Practices. documented in this encounterCleveland Clinic Hillcrest Hospital04-02-2025 Instructions* Patient Instructions* Tresa Marcum APRN.CNP - 06/01/2024 2:22 PM EDT - Discontinue Glipizide for now; monitor blood sugar levels. - Start Trulicity at a lower dose for 4 doses, then switch to 1.5 mg as prescribed; medication [facility]to [facility] pharmacy. - Complete lab work (CBC, CMP, Magnesium, A1c, Cholesterol Panel) at dialysis center. - Schedule appointments with Endocrinology and Sleep Medicine. - Schedule hydrotherapy at [facility]; order will be faxed to [facility]. - Schedule follow-up appointments with Pain Management and Neurology. - schedule repeat chest CT. - Next follow-up appointment in [address] Cheatham. documented in this encounterCleveland Clinic Hill[facility]03-12-2025 Telephone encounter Note * Telephone Encounter - Chloe Carpenter LPN - 05/11/2024 11:17 AM EDT Faxing as requested. Attempted to contact patient but voicemail is not set up. [facility]03-12-2025 Miscellaneous Notes* Telephone Encounter - Chloe Carpenter [...] would like to have it faxed to [facility] at [phone]. Fabiola Jesus RN documented in this encounterCleveland Clinic Hill[facility] Hospital03-11-2025 Telephone encounter Note * Telephone Encounter - Ignacio Cheatham MD - 05/10/2024 11:48 AM EDT ok [facility]03-11-2025 Telephone encounter Note* Telephone Encounter - Fabiola Jesus RN - 05/10/2024 11:31 AM EDT Patient calling and is asking if provider can write orders for a home health aide. Patient states if provider can write this order she would like to have it faxed to [facility] at [phone]. Fabiola Jesus RN [facility]02-18-2025 NotePatient Outreach (FAMPWS) Margareth GONZALEZ ([id number]) 1965 F [place] Date Time Provider Department [...] Date Reviewed: 04/15/2024 Reviewed by: Sha Ray APRN.BLOCK PAVER - Fully Assessed Visit Diagnosis:Encounter for screening mammogram for breast cancer [Z12.31] Order(s):[facility] SCREENING W [facility]ONICA [[id number]] Order #: [id number] FUTURE Prescriptions as of 05/20/2024 - hydrOXYzine [...] 1 tablet by mouth once daily. - Sbnofbnx-Tz-Srg-Fe-FA ( VITAMIN) ORAL Tab Take 1 tablet [...] 04/19/2010 Microalbuminuria [R80.9] 04/22 (more content not included)...[facility]02-14-2025 NoteHNO ID: [id number] Author: SHA RAY APRN.BLOCK PAVER Service: ? Author Type: Nurse Practitioner Type: [...] Chronic kidney disease Contraceptive management Depression Diabetes ([facility]) Diarrhea DVT, lower extremity ([facility]) 08/2014 Right leg (6) Esophagitis ESRD (end stage renal disease) ([facility]) 07/03/2022 Facial fracture due to fall ([facility]) ([facility]) Fatigue Fibromyalgia Fracture Fracture of shaft of fibula GERD (gastroesophageal reflux disease) HLD (hyperlipidemia) on tricor Hyperlipidemia Hypertension Hypomagnesemia Hypopotassemia IBS (irritable bowel syndrome) Insomnia Intertrigo Knee pain Morbid obesity ([facility]) 03/11/2011 Myalgia Nausea Neck pain [...] time ALLERGIES Vicodin [Hydrocodone-Acetaminophen], Balsam 115, Balsam Blaine, Barium Sulfate, Benadryl Allergy Decongestant, Benadryl [Diphenhydramine [...] mouth. As needed. flash (more content not included)...[facility]02-[facility] History of Present illness Narrative* Sha Ray APRN.BLOCK PAVER - 04/15/2024 12:38 PM EST Subjective HPI [...] Chronic kidney disease Contraceptive management Depression Diabetes ([facility]) Diarrhea DVT, lower extremity ([facility]) 08/2014 Right leg (6) Esophagitis ESRD (end stage renal disease) ([facility]) 07/03/2022 Facial fracture due to fall ([facility]) ([facility]) Fatigue Fibromyalgia Fracture Fracture of shaft of fibula GERD (gastroesophageal reflux disease) HLD (hyperlipidemia) on tricor Hyperlipidemia Hypertension Hypomagnesemia Hypopotassemia IBS (irritable bowel syndrome) Insomnia Intertrigo Knee pain Morbid obesity ([facility]) 03/11/2011 Myalgia Nausea Neck pain [...] time ALLERGIES Vicodin [Hydrocodone-Acetaminophen], Balsam 115, Balsam Blaine, Barium Sulfate, Benadryl Allergy Decongestant, Benadryl [Diphenhydramine Hcl], Codeine, Lisinopril, Mold, Nsaids (Rzi-VvheehfzrJzvb-Rhagijtzosgm Drug), Penicillins, Seasonal Allergies, Tetracycline, Vanilla Extract, [...] mouth. As needed. flash glucose scanning reader (Ecloud ([place]) Information and TechnologySTYLE FESTUS 2 READER) Use to check glucose [...] Take 81 mg by mouth every morning.) Gjeptpxr-Cy-Tpv-Fe-FA ( VITAMIN) ORAL Tab Take 1 tablet [...] of care. This note was generated using SalonBookr software. It may contain errors in wording, punctuation, or spelling. Sha Ray APRN.NOY documented in this encounterCleveland Clinic [facility]02-07-2025 Telephone encounter Note * Telephone Encounter - Efra Box MA - 04/08/2024 10:19 AM EST Phone number has calling restrictions that prevents the completion of call.Closing encounter Efra Box MA April 08, 2024 10:20 AM [facility]02-07-2025 Miscellaneous Notes* Telephone Encounter - Efra Box [...] issues. Fabiola Jesus, RN documented in this encounterCleveland Clinic [facility] Hospital02-05-2025 Telephone encounter Note * Telephone Encounter - Anat Lopez APRN.CNP - 04/06/2024 11:45 AM EST Actionable Finding Follow up Patient Name: Margareth Gonzalez eMRN: [id number] : 1965 Patient Preferred PCP: Ignacio Cheatham MD 07/01/2024 in [facility] with IGNACIO CHEATHAM - 6 [...] nodules Ordering provider: Dr. Ignacio Cheatham MD [phone] Outreach attempts for Actionable Finding: MYC user active [x] SHEILA outreach Jobfoxt sent 04/06/2024 Outcome: Added to ISN April 2024 last Per our protocol, this Actionable Finding is Closed based on the Final Criterion : Patient completed imaging that qualifies closure of the actionable finding Scheduled-07/27/2024 Anat Lopez APRN.CNP Actionable Findings [facility] [place] Office: [phone] [facility] Work Phone: 1(811) 959-479302-05-2025 Miscellaneous Notes* Telephone Encounter - Anat Lopez APRN.CNP - 04/06/2024 11:45 AM EST Actionable Finding Follow up Patient Name: Margareth Gonzalez eMRN: [id number] : 1965 Patient Preferred PCP: Ignacio Cheatham MD 07/01/2024 in [facility] with IGNACIO CHEATHAM - 6 [...] nodules Ordering provider: Dr. Ignacio Cheatham MD [phone] Outreach attempts for Actionable Finding: MYC user active [x] SHEILA outreach MyChart sent 04/06/2024 Outcome: Added to ISN April 2024 last Per our protocol, this Actionable Finding is Closed based on the Final Criterion : Patient completed imaging that qualifies closure of the actionable finding Scheduled-07/27/2024 Anat Lopez APRN.CNP Actionable Findings [facility] [place] Office: [phone] documented in this encounterCleveland Clinic [facility] Hospital01-29-2025 Telephone encounter Note * Telephone Encounter - Kiki Colin MA - 03/30/2024 1:22 PM EST Left message for patient to contact office. Kiki Colin MA [facility]01-29-2025 Telephone encounter Note* Telephone Encounter - Ignacio Cheatham MD - 03/30/2024 11:17 AM EST It was previously sent in. Does she need new script? [facility]01-29-2025 Telephone encounter Note* Telephone Encounter - Fabiola Jesus RN - 03/30/2024 11:01 AM EST Patient calls and states that she had talked to Dr. Hill regarding medication. Patient states that Dr. Hill told her that Cymbalta 30 mg would be ok for her to take with her kidney issues. Fabiola Jesus RN [facility]01-27-2025 Telephone encounter Note* Telephone Encounter - June Heath MA - 03/28/2024 2:45 PM EST 03/28-Attempted to contact Elenita at [facility]. Recording states out of office until 2. Left detailed message on identified VM advising to refax form to provider office. June Heath MA [facility]01-27-2025 Miscellaneous Notes* Telephone Encounter - June Heath [...] provided. For any questions, Call Elenita at [phone] Georgina Salmon RN documented in this encounterCleveland Clinic Hillcrest Hospital01-27-2025 NoteHNO ID: [id number] Author: ?, ?, ? Service: ? Author Type: ? Type: Progress Notes Filed: 03/28/2024 11:34 Note Text: POPULATION HEALTH NAVIGATION OUTREACH Action/[facility] Support: Called pt to schedule an appt in Pain Management. Lvm for pt to call [phone] for scheduling. Reason for Outreach Care Gap/HCC or Scheduling Wellness Visits Care Gaps due: N/A Patient Contacted: Spoke to patient/parent/or legal guardian Patient identified by name and : No Navigation Signature: Krissy Paulino March 28, 2024 11:34 [facility]01-27-2025 History of Present illness Narrative* Krissy Paulino - 03/28/2024 11:33 AM EST POPULATION HEALTH NAVIGATION OUTREACH Action/[facility] Support: Called pt to schedule an appt in Pain Management. Lvm for pt to call [phone] for scheduling. Reason for Outreach Care Gap/HCC or Scheduling Wellness Visits Care Gaps due: N/A Patient Contacted: Spoke to patient/parent/or legal guardian Patient identified by name and : No Navigation Signature: Krissy Paulino March 28, 2024 11:34 AM documented in this encounterCleveland Clinic Hill[facility]01-27-2025 NotePatient Outreach (NETNAV) Margareth GONZALEZ ([id number]) 1965 F [place] Date Time Provider Department 03/28/24 NO PCP NETNAV During your visit today, we recorded the following information about you: Krissy Paulino 03/28/2024 11:34 AM Signed POPULATION HEALTH NAVIGATION OUTREACH Action/[facility] [place] Support: Called pt to schedule an appt in Pain Management. Lvm for pt to call [phone] for scheduling. Reason for Outreach Care Gap/HCC [...] 1 tablet by mouth once daily. - Cmwkliia-Ck-Zyl-Fe-FA ( VITAMIN) ORAL Tab Take 1 tablet [...] Fibromyalgia [M79.7] 09/24/2009 Neuropa (more content not included)...[facility]01-24-2025 History of Present illness Narrative* Ignacio Cheatham MD - 03/25/2024 11:00 AM EST Patient presents with: Hospital F/U HPI: Patient presents today for office visit for HOSPITAL/ER FOLLOW UP: Reason for visit: concerns of TIA. Left hand numbness, some slurred speech, and facial droop duringdialysis. Symptoms resolved upon arrival to ER. Admitted for observation. Which facility: [facility] Date of visit: 03/17/24-03/18/24 Diagnosis: numbness Testing [...] neurology. She would prefer to see a [facility] neurologist. Is on a statin and asa [...] mouth. As needed. flash glucose scanning reader ([employer] FESTUS 2 READER) Use to check glucose [...] Take 81 mg by mouth every morning.) Dlgxzjus-Sy-Fey-Fe-FA ( VITAMIN) ORAL Tab Take 1 tablet by mouth once daily. No current facility-administered medications for this visit. ALLERGIES: ALLERGIES Allergen Reactions Vicodin [Hydrocodon* Vomiting Balsam 115 Balsam Blaine Unknown Barium Sulfate Unknown Benadryl Allergy De* [...] Chronic kidney disease Contraceptive management Depression Diabetes ([facility]) Diarrhea DVT, lower extremity ([facility]) 08/2014 Right leg (6) Esophagitis ESRD (end stage renal disease) ([facility]) 07/03/2022 Facial fracture due to fall ([facility]) ([facility]) Fatigue Fibromyalgia Fracture Fracture of shaft of fibula GERD (gastroesophageal reflux disease) HLD (hyperlipidemia) on tricor Hyperlipidemia Hypertension Hypomagnesemia Hypopotassemia IBS (irritable bowel syndrome) Insomnia Intertrigo Knee pain Morbid obesity ([facility]) 03/11/2011 Myalgia Nausea Neck pain [...] TABLET Ignacio Cheatham MD documented in this encounterCleveland Clinic [facility]01-24-2025 NoteHNO ID: [id number] Author: IGNACIO CHEATHAM MD Service: ? Author Type: Physician Type: Progress Notes Filed: 03/25/2024 11:30 Note Text: Patient presents with: Hospital F/U HPI: Patient presents today for office visit for HOSPITAL/ER FOLLOW UP: Reason for visit: concerns of TIA. Left hand numbness, some slurred speech, and facial droop during dialysis. Symptoms resolved upon arrival to ER. Admitted for observation. Which facility: [facility] Date of visit: 03/17/24-03/18/24 Diagnosis: numbness Testing [...] mouth. As needed. flash glucose scanning reader (Ecloud ([place]) Information and TechnologySTYLE FESTUS 2 READER) Use to check glucose [...] Take 81 mg by mouth every morning.) Grnevqgj-Yp-Uxj-Fe-FA ( VITAMIN) ORAL Tab Take 1 tablet by mouth once daily. No current facility-administered medications for this visit. ALLERGIES: ALLERGIES Allergen Reactions Vicodin [Hydrocodon* Vomiting Balsam 115 Balsam Blaine Unknown Barium Sulfate Unknown Benadryl Allergy De* [...] Chronic kidney disease Contraceptive management Depression Diabetes ([facility]) Diarrhea DVT, lower extremity ([facility]) 08/2014 Right leg (6) Esophagitis ESRD (end stage renal disease) ([facility]) 07/03/2022 Facial fracture due to fall ([facility]) ([facility]) Fatigue Fibromyalgia Fracture Fracture of shaft of fibula GERD (gastroesophageal reflux disease) HLD (hyperlipidemia) on tricor Hyperlipidemia Hypertension Hypomagnesemia Hypopotassemia IBS (irritable bowel syndrome) Insomnia Intertrigo Knee pain Morbid obesity ([facility]) 03/11/2011 Myalgia Nausea Neck pain Neuropathy Nocturnal leg cramps Non-cardiac chest pain Obesity CASSIE (obstructive sleep apnea) 07/08/2011 Other polyp of sinus Other specified anemias Personal history of unspecified urinary disorder PMH - PAST MEDICAL HISTORY OF left knee surgery x3 Pulmonary nodules Pyelonephritis, acute Restless leg Ruptured appendicitis S/P gastric bypass Snoring Type II or unspecified (more content not included)...[facility] 03-23-2024 Telephone encounter Note* Telephone Encounter - Georgina Salmon RN - 03/23/2024 1:49 PM EST Elenita with [facility] calling and states she will be faxing over forms regarding a Medicaid Program for patient. Please add ICD codes to form, and then fax form back to number provided. For any questions, Call Elenita at [phone] Georgina Salmon RN [facility]01-17-2025 [facility] Medical Records Department [address] [place] [id number] Discharge Summary 03/18/24 1134 MR#: [id number] Acct: [id number] Name: Margareth GONZALEZ Rep #: [id number] : 1965 58 From: Branden Banks MD PCP: Dr. Ignacio Cheatham MD Status:ADM CHRISTA Location: [place] [address] Providers Date of Admission: 03/17/24 Date of [...] Glucose 248 H 01 (more content not included)...[facility]01-03-2025 Telephone encounter Note* Telephone Encounter - Linda Sotelo - 03/04/2024 1:47 PM EST Images from the original note were not included. Jenni Castro RN Wagner, [place]; Linda Sotelo Ak! Can you assist me with scheduling this? I tried but it needs financial clearance. She needs scheduled in [place] on a M, W, F, d/t dialysis the other days. Thanks! Jenni STERLING Testing Waiting on referral to be authorized, will call when it is. [facility]01-03-2025 Miscellaneous Notes* Telephone Encounter - Linda Sotelo - 03/04/2024 1:47 PM EST Images from the original note were not included. Jenni Castro RN Wagner, [place]; Linda Sotelo Ak! Can you assist me with scheduling this? I tried but it needs financial clearance. She needs scheduled in [place] on a M, W, F, d/t dialysis the other days. Thanks! Jenni STERLING Testing Waiting on referral to be authorized, will call when it is. documented in this encounterCleveland Clinic Hill[facility]12-10-2024 NoteHNO ID: [id number] Author: SAIRA JACKSON, DO Service: ? Author Type: Physician Type: Progress Notes Filed: 02/26/2024 14:11 Note Text: [facility] [place] DEPARTMENT OF VASCULAR SURGERY OUTPATIENT VISIT DATE [...] Chronic kidney disease Contraceptive management Depression Diabetes ([facility]) Diarrhea DVT, lower extremity ([facility]) 08/2014 Right leg (6) Esophagitis ESRD (end stage renal disease) ([facility]) 07/03/2022 Facial fracture due to fall ([facility]) ([facility]) Fatigue Fibromyalgia Fracture Fracture of shaft of fibula GERD (gastroesophageal reflux disease) HLD (hyperlipidemia) on tricor Hyperlipidemia Hypertension Hypomagnesemia Hypopotassemia IBS (irritable bowel syndrome) Insomnia Intertrigo Knee pain Morbid obesity ([facility]) 03/11/2011 Myalgia Nausea Neck pain [...] by mouth. As needed. (more content not included)...[facility]12-10-2024 History of Present illness Narrative* Saira Jackson, DO - 02/09/2024 11:57 AM EST Images from the original note were not included. [facility] [place] DEPARTMENT OF VASCULAR SURGERY OUTPATIENT VISIT DATE [...] Chronic kidney disease Contraceptive management Depression Diabetes ([facility]) Diarrhea DVT, lower extremity ([facility]) 08/2014 Right leg (6) Esophagitis ESRD (end stage renal disease) ([facility]) 07/03/2022 Facial fracture due to fall ([facility]) ([facility]) Fatigue Fibromyalgia Fracture Fracture of [...] mouth. As needed. flash glucose scanning reader (Ecloud ([place]) Information and TechnologySTYLE FESTUS 2 READER) Use to check glucose [...] Take 81 mg by mouth every morning.) Qdipcldw-Al-Evk-Fe-FA ( VITAMIN) ORAL Tab Take 1 tablet [...] 2024 TIME: 12:06 PM documented in this encounterCleveland Clinic [facility]11-22-2024 Telephone encounter Note * Telephone Encounter - Chloe Carpenter LPN - 01/22/2024 9:15 AM EST Faxed as requested. [facility]11-22-2024 Miscellaneous Notes* Telephone Encounter - Chloe Carpenter LPN - 01/22/2024 9:15 AM EST Faxed as requested. * Telephone Encounter - Efra Box MA - 01/21/2024 2:57 PM EST Type of form: [email or web address] Form received via walk in When form is completed, Fax form to AEP Form has been forwarded to Physician Desk: Dr. Linden Box MA documented in this encounterCleveland Clinic [facility]11-21-2024 Telephone encounter Note * Telephone Encounter - Efra Box MA - 01/21/2024 2:57 PM EST Type of form: [email or web address] Form received via walk in When form is completed, Fax form to AEP Form has been forwarded to Physician Desk: Dr. Linden Box MA [facility]11-18-2024 Telephone encounter Note* Telephone Encounter - Cristal Carcamo MA - 01/18/2024 9:45 AM EST Please call pt to set up appt with Pharmacist. Cristal Carcamo MA [facility]11-18-2024 Miscellaneous Notes* Telephone Encounter - Cristal Carcamo [...] assistance programs. Please advise documented in this encounterCleveland Clinic Hill[facility]11-18-2024 Telephone encounter Note * Telephone Encounter - Ignacio Cheatham MD - 01/18/2024 9:09 AM EST done [facility]11-18-2024 Telephone encounter Note* Telephone Encounter - Arnold Bocanegra LPN - 01/18/2024 9:05 AM EST Patient calling said her insurance is not covering any of her medications. She was asking for referral to pharmacy, last time pharmacist helped her with that. Advised Social Work can assist with patient assistance programs. Please advise [facility]11-18-2024 Miscellaneous Notes* Telephone Encounter - Arnold Bocanegra LPN - 01/18/2024 9:04 AM EST Patient returned call and went over results, notes from Dr Myrick with understanding. Assisted withtransfer to crew scheduler to get Sleep Med appt set up. * Telephone Encounter - Chloe Carpenter LPN - 01/14/2024 5:32 PM EST BPL Global message also sent to patient. * Telephone Encounter - Elenita Ellison LPN - 01/13/2024 9:18 AM EST Left message to call office. 01/13/2024 9:18 AM. Elenita Ellison LPN * Telephone Encounter - Sha Myrick MD - 01/12/2024 9:49 PM EST Let patient know her sleep study shows sleep apnea. Order placed to see sleep med. documented in this encounterCleveland Clinic Hill[facility]11-18-2024 Telephone encounter Note * Telephone Encounter - Arnold Bocanegra LPN - 01/18/2024 9:04 AM EST Patient returned call and went over results, notes from Dr Myrick with understanding. Assisted withtransfer to crew scheduler to get Sleep Med appt set up. [facility]11-14-2024 Telephone encounter Note* Telephone Encounter - Chloe Carpenter LPN - 01/14/2024 5:32 PM EST BPL Global message also sent to patient. [facility]11-13-2024 Telephone encounter Note* Telephone Encounter - Elenita Ellison LPN - 01/13/2024 9:18 AM EST Left message to call office. 01/13/2024 9:18 AM. Elenita Ellison LPN [facility]11-12-2024 Telephone encounter Note* Telephone Encounter - Sha Myrick MD - 01/12/2024 9:49 PM EST Let patient know her sleep study shows sleep apnea. Order placed to see sleep med. [facility]11-07-2024 NoteHNO ID: [id number] Author: ?, ?, ? Service: ? Author Type: ? Type: Progress Notes Filed: 01/07/2024 11:45 Note Text: Sleep Study Check-In Documentation Date: January 07, 2024 Name: Margareth Gonzalez Comments: HST was returned in working order without all sleep questionnaires [facility] History of Present illness Narrative* Dk Mccrary - 01/07/2024 11:44 AM EST Sleep Study Check-In Documentation Date: January 07, 2024 Name: Margareth Gonzalez Comments: HST was returned in working order without all sleep questionnaires Dk Mccrary * Keiko Soriano - 01/04/2024 3:25 PM EST Nomad # [id number] , date shipped out 01-04-24 [employer] only Tracking mailout: [id number] Tracking return: [id number] * Jonn Fortune III, PhD - 01/04/2024 10:17 AM EST January 04, 2024 Standing PSG Orders signed in the last 90 days None Future PSG Orders signed in the last 90 days Ordered Auth. provider HOME SLEEP APNEA TEST (HSAT) [[id number]] 12/25/23 Ignacio Cheatham MD Assoc. diagnoses: CASSIE [...] Chronic kidney disease Contraceptive management Depression Diabetes ([facility]) Diarrhea DVT, lower extremity ([facility]) 08/2014 Right leg (6) Esophagitis ESRD (end stage renal disease) ([facility]) 07/03/2022 Facial fracture due to fall ([facility]) ([facility]) Fatigue Fibromyalgia Fracture Fracture of [...] from Ignacio Renae MD , a B. [facility] Staff. Visit prep complete. Comments :No The sleep study is scheduled for 01-05-24. Insurance: Payor: AMY / Plan: BLUE CARD PPO OOS / Product Type: PPO / Payer/Plan Subscr Sex Relation Sub. Ins. ID Effective Group Num 1. AMY HUGHES* Margareth GONZALEZ 1965 Female Self [id number] 03/02/20 [id number] [address] Keiko Soriano documented in this encounterCleveland Clinic Hill[facility] Hospital11-04-2024 NoteHNO ID: [id number] Author: ?, ?, ? Service: ? Author Type: ? Type: Progress Notes Filed: 01/07/2024 11:45 Note Text: Nomad # [id number] , date shipped out 01-04-24 [employer] only Tracking mailout: [id number] Tracking return: [id number]11-04-2024 NoteHNO ID: [id number] Author: JONN FORTUNE III, PhD Service: ? Author Type: Physician Type: Progress Notes Filed: 01/07/2024 11:45 Note Text: January 04, 2024 Standing PSG Orders signed in the last 90 days None Future PSG Orders signed in the last 90 days Ordered Auth. provider HOME SLEEP APNEA TEST (HSAT) [[id number]] 12/25/23 Ignacio Cheatham MD Assoc. diagnoses: CASSIE [...] Depression Diabetes (HCC) Diarrhea DVT, lower extremity ([facility]) 08/2014 Right leg (6) Esophagitis ESRD (end stage renal disease) ([facility]) 07/03/2022 Facial fracture due to fall ([facility]) ([facility]) Fatigue Fibromyalgia Fracture Fracture of [...] plan. Jonn Fortune III, PhD 5:03 PM, 01/04/2024[facility]10-31-2024 NoteHNO ID: [id number] Author: ?, ?, ? Service: ? Author Type: ? Type: Progress Notes Filed: 01/07/2024 11:45 Note Text: December 31, 2023 An order has been received for Home Sleep Apnea Test (HSAT) from Ignacio Renae MD , a B. [facility] Staff. Visit prep complete. Comments :No The sleep study is scheduled for 01-05-24. Insurance: Payor: ANTHEM / Plan: BLUE CARD PPO OOS / Product Type: PPO / Payer/Plan Subscr Sex Relation Sub. Ins. ID Effective Group Num 1. ANTHEM - SAUL* Mragareth GONZALEZ 1965 Female Self [id number] 03/02/20 [id number] [address] Keiko [facility]10-25-2024 NoteHNO ID: [id number] Author: IGNACIO CHEATHAM MD Service: ? Author [...] use coupon/copay card. Wants to change to [facility] in [facility]. Has [employer] forms to complete for disability. [...] two more surgeries. She then went to [place]. Then she went 12 weeks, no weight bearing. Got out of group home 10/01. Refers that she was put on a ventilator at night. Had a sleep study. Equipment via [employer]. Hx of CASSIE. Not following with sleep [...] mouth. As needed. flash glucose scanning reader (Ecloud ([place]) Information and TechnologySTYLE FESTUS 2 READER) Use to check glucose [...] Take 81 mg by mouth every morning.) Jqcgwegp-If-Lna-Fe-FA ( VITAMIN) ORAL Tab Take 1 tablet by mouth once daily. No current facility-administered medications for this visit. ALLERGIES: ALLERGIES Allergen Reactions Vicodin [Hydrocodon* Vomiting Balsam 115 Balsam Blaine Unknown Barium Sulfate Unknown Benadryl Allergy De* [...] Bipolar I disorder, mo (more content not included)...[facility] 12-25-2023 History of Present illness Narrative* [...] use coupon/copay card. Wants to change to [facility] in town. Has [employer] forms to complete [...] two more surgeries. She then went to [place]. Then she went 12 weeks, no weight bearing. Got out of group home 10/01. Refers that she was put on a ventilator at night. Had a sleep study. Equipment via [employer]. Hx of CASSIE. Not following with sleep [...] mouth. As needed. flash glucose scanning reader (Ecloud ([place]) Information and TechnologySTYLE FESTUS 2 READER) Use to check glucose [...] Take 81 mg by mouth every morning.) Nmxwnzpw-Su-Xvo-Fe-FA ( VITAMIN) ORAL Tab Take 1 tablet by mouth once daily. No current facility-administered medications for this visit. ALLERGIES: ALLERGIES Allergen Reactions Vicodin [Hydrocodon* Vomiting Balsam 115 Balsam Blaine Unknown Barium Sulfate Unknown Benadryl Allergy De* [...] Chronic kidney disease Contraceptive management Depression Diabetes ([facility]) Diarrhea DVT, lower extremity ([facility]) 08/2014 Right leg (6) Esophagitis ESRD (end stage renal disease) ([facility]) 07/03/2022 Facial fracture due to fall ([facility]) ([facility]) Fatigue Fibromyalgia Fracture Fracture of shaft of fibula GERD (gastroesophageal reflux disease) HLD (hyperlipidemia) on tricor Hyperlipidemia Hypertension Hypomagnesemia Hypopotassemia IBS (irritable bowel syndrome) Insomnia Intertrigo Knee pain Morbid obesity ([facility]) 03/11/2011 Myalgia Nausea Neck pain [...] (HSAT) 5. ESRD (end stage renal disease) ([facility]) - ICD9: 585.6, ICD10: N18.6 - will be switching to home dialysis. 6. Proliferative diabetic retinopathy associated with type 2 diabetes mellitus, unspecified laterality, unspecified proliferative retinopathy type ([facility]) - ICD9: 250.50, 362.02, ICD10: E11.3599 - follow with optho. 7. 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 Will let me know when ready. 8. Bipolar affective disorder, remission status unspecified ([facility]) - ICD9: 296.80, ICD10: F31.9 - continue meds. 9. Personal history of DVT (deep vein thrombosis) - ICD9: V12.51, ICD10: Z86.718 - stable. Ignacio Cheatham MD documented in this encounterCleveland Clinic [facility]10-21-2024 NoteHNO ID: [id number] Author: OMKAR LAZCANO LPN Service: ? Author Type: LICENSED NURSE Type: Progress Notes Filed: 12/30/2023 11:15 Note Text: Prepared injection per Dr. Carney order and handed to him. Left knee Omkar Lazcano LPN December 21, 2023 3:18 [facility]10-21-2024 History of Present illness Narrative* Omkar Lazcano [...] Chronic kidney disease Contraceptive management Depression Diabetes ([facility]) Diarrhea DVT, lower extremity ([facility]) 08/2014 Right leg (6) Esophagitis ESRD (end stage renal disease) ([facility]) 07/03/2022 Facial fracture due to fall ([facility]) ([facility]) Fatigue Fibromyalgia Fracture Fracture of shaft of fibula GERD (gastroesophageal reflux disease) HLD (hyperlipidemia) on tricor Hyperlipidemia Hypertension Hypomagnesemia Hypopotassemia IBS (irritable bowel syndrome) Insomnia Intertrigo Knee pain Morbid obesity ([facility]) 03/11/2011 Myalgia Nausea Neck pain [...] Take 81 mg by mouth every morning.) Npiltiel-Mp-Osb-Fe-FA ( VITAMIN) ORAL Tab Take 1 tablet by mouth once daily. No current facility-administered medications for this visit. ALLERGIES: ALLERGIES Allergen Reactions Vicodin [Hydrocodon* Vomiting Balsam 115 Balsam Blaine Unknown Barium Sulfate Unknown Benadryl Allergy De* [...] knee joint Informed Consent Consent Obtained: Verbal [place] Protocol A moment to CARE was completed. [...] understanding of these instructions. documented in this encounterCleveland Clinic Hill[facility] Hospital10-21-2024 NoteHNO ID: [id number] Author: DORENE MURILLO MD Service: ? Author [...] Chronic kidney disease Contraceptive management Depression Diabetes ([facility]) Diarrhea DVT, lower extremity ([facility]) 08/2014 Right leg (6) Esophagitis ESRD (end stage renal disease) ([facility]) 07/03/2022 Facial fracture due to fall ([facility]) ([facility]) Fatigue Fibromyalgia Fracture Fracture of [...] Sig hydrOXYzine HCl ( (more content not included)...[facility] 12-11-2023 Instructions* Patient Instructions* Tresa Marcum APRN.BLOCK PAVER - 12/11/2023 11:57 AM EDT Start the clindamycin twice daily. Schedule w/ Dr. Jackson. Increase the cymbalta to 30 mg daily. Take 1/2 tab of the sertraline (25 mg) daily X 1 week, then stop. documented in this encounterCleveland Clinic [facility]10-11-2024 NoteHNO ID: [id number] Author: TRESA MARCUM APRN.BLOCK PAVER Service: ? Author Type: Nurse Practitioner Type: [...] two more surgeries. She then went to [place]. Then she went 12 weeks, no weight bearing. Got out of group home 10/01. Refers that she was put on a ventilator at night. Had a sleep study. Equipment via [employer]OCK[employer]. Hx of CASSIE. Not following with sleep [...] (6) Esophagitis ESRD (end stage renal disease) ([facility]) 07/03/2022 Facial fracture due to fall ([facility]) ([facility]) Fatigue Fibromyalgia Fracture Fracture of shaft of fibula GERD (gastroesophageal reflux disease) HLD (hyperlipidemia) on tricor Hyperlipidemia Hypertension Hypomagnesemia Hypopotassemia IBS (irritable bowel syndrome) Insomnia Intertrigo Knee pain Morbid obesity ([facility]) 03/11/2011 Myalgia Nausea Neck pain [...] mouth every 8 hour (more content not included)...[facility]10-11-2024 History of Present illness Narrative* Tresa Marcum APRN.BLOCK PAVER - 12/11/2023 11:30 AM EDT This is a 58 year old female who presents today with: Patient presents with: [facility] F/U skilled care follow up HISTORY OF PRESENT ILLNESS: Margareth Gonzalez is a 58 year old female. Patient presents with: [facility] F/U skilled care follow up Pt presents today for prescription renewal. Since last visit, she has had leg surgery. She has been home for about two months. Needs refills. 01/19/23 -- tib fib. Pathological fx. Had ORIF. Somewhere around April or May, - stephen broke. In May, -- had repair. Went to the [place]. Then it go infected. Had to have two more surgeries. She then went to [place]. Then she went 12 weeks, no weight bearing. Got out of group home 10/01. Refers that she was put on a ventilator at night. Had a sleep study. Equipment via [employer]. Hx of CASSIE. Not following with sleep [...] Chronic kidney disease Contraceptive management Depression Diabetes ([facility]) Diarrhea DVT, lower extremity ([facility]) 08/2014 Right leg (6) Esophagitis ESRD (end stage renal disease) ([facility]) 07/03/2022 Facial fracture due to fall ([facility]) ([facility]) Fatigue Fibromyalgia Fracture Fracture of shaft of fibula GERD (gastroesophageal reflux disease) HLD (hyperlipidemia) on tricor Hyperlipidemia Hypertension Hypomagnesemia Hypopotassemia IBS (irritable bowel syndrome) Insomnia Intertrigo Knee pain Morbid obesity ([facility]) 03/11/2011 Myalgia Nausea Neck pain [...] time ALLERGIES Vicodin [Hydrocodone-Acetaminophen], Balsam 115, Balsam Blaine, Barium Sulfate, Benadryl Allergy Decongestant, Benadryl [Diphenhydramine Hcl], Codeine, Lisinopril, Mold, Nsaids (Krb-SscggkjltWgtw-Qblqacsushiw Drug), Penicillins, Seasonal Allergies, Tetracycline, Vanilla Extract, [...] mouth once daily. flash glucose scanning reader (Ecloud ([place]) Information and TechnologySTYLE FESTUS 2 READER) Use to check glucose [...] Take 81 mg by mouth every morning.) Xjnspvcf-Kt-Hvi-Fe-FA ( VITAMIN) ORAL Tab Take 1 tablet [...] - PFIZER-BIONTECH COVID-19 VACCINE AGE 12+ YR ([facility]) 8. Type 2 diabetes mellitus with stage [...] as needed for worsening/no improvement. Tresa Marcum APRN.BLOCK PAVER documented in this encounterCleveland Clinic [facility] Hospital10-07-2024 Telephone encounter Note * Telephone Encounter - Clare Singh RN - 12/07/2023 1:03 PM EDT Pt called in and reports she has been home from the group home for 2 months and has been trying to get in with Dr Cheatham. I got her in with Tresa Marcum ROLLING MACHINE OPERATOR 12/11/23. Pt reports she had R knee surgery went to the [facility] and got an infection I her knee. She states she had to go back to [facility] to have subsequent surgery. Then Pt states she went to [facility] after that for rehab. [facility]10-07-2024 Miscellaneous Notes* Telephone Encounter - Clare Singh RN - 12/07/2023 1:03 PM EDT Pt called in and reports she has been home from the group home for 2 months and has been trying to get in with Dr Cheatham. I got her in with Tresa Marcum ROLLING MACHINE OPERATOR 12/11/23. Pt reports she had R knee surgery went to the [facility] and got an infection I her knee. She states she had to go back to [facility] to have subsequent surgery. Then Pt states she went to [facility] after that for rehab. documented in this encounterCleveland Clinic [facility] Hospital07-23-2024 Telephone encounter Note * Telephone Encounter - Nedra Cramer - 09/22/2023 8:48 AM EDT Checking with Dr. Murillo to see if he wants to sign the attached order for aquatics therapy, or should I delete it. Nedra Cramer September 22, 2023 8:49 AM [facility]07-23-2024 Miscellaneous Notes* Telephone Encounter - Nedra Cramer - 09/22/2023 8:48 AM EDT Checking with Dr. Murillo to see if he wants to sign the attached order for aquatics therapy, or should I delete it. Nedra Cramer September 22, 2023 8:49 AM * Telephone Encounter - Nedra Cramer - 09/18/2023 3:07 PM EDT PC to Ruthie at [facility] and relayed information. She will check and see if there would be someone available to look over her wounds daily, as Dr. Murillo stated would be necessary, to ensure incisions are ok. Nedra Cramer September 18, 2023 3:08 PM * Telephone Encounter - Nedra Cramer - 09/18/2023 2:57 PM EDT Received vm message from Ruthie with [facility]. Stated that patient desires to participate in aquatic therapy and is asking if that is ok. P# [phone], fax [phone]. Patient seen in the office on 09/13 for her right lower leg. Order prepared for Dr. Murillo's review/approval. Nedra Cramer September 18, 2023 2:58 PM documented in this encounterCleveland Clinic Hill[facility] Hospital07-19-2024 Telephone encounter Note * Telephone Encounter - Nedra Cramer - 09/18/2023 3:07 PM EDT PC to Ruthie at [facility] and relayed information. She will check and see if there would be someone available to look over her wounds daily, as Dr. Murillo stated would be necessary, to ensure incisions are ok. Nedra Cramer September 18, 2023 3:08 PM [facility]07-19-2024 Telephone encounter Note* Telephone Encounter - Nedra Cramer - 09/18/2023 2:57 PM EDT Received vm message from Ruthie with [facility]. Stated that patient desires to participate in aquatic therapy and is asking if that is ok. P# [phone], fax [phone]. Patient seen in the office on 09/13 for her right lower leg. Order prepared for Dr. Murillo's review/approval. Nedra Cramer September 18, 2023 2:58 PM [facility]07-15-2024 NoteHNO ID: [id number] Author: DORENE MURILLO MD Service: ? Author [...] extremity. The patient is recovering at a shelter facility and participating in physical therapy. The [...] Chronic kidney disease Contraceptive management Depression Diabetes ([facility]) Diarrhea DVT, lower extremity ([facility]) 08/2014 Right leg (6) Esophagitis ESRD (end stage renal disease) ([facility]) 07/03/2022 Facial fracture due to fall ([facility]) ([facility]) Fatigue Fibromyalgia Fracture Fracture of shaft of fibula GERD (gastroesophageal reflux disease) HLD (hyperlipidemia) on tricor Hyperlipidemia Hypertension Hypomagnesemia Hypopotassemia IBS (irritable bowel syndrome) Insomnia Intertrigo Knee pain Morbid obesity ([facility]) 03/11/2011 Myalgia Nausea Neck pain [...] Medications Medication Sig lab (more content not included)...[facility]07-15-20[facility] History of Present illness Narrative* Dorene Murillo [...] lower extremity. The patientis recovering at a shelter facility and participating in physical therapy. The [...] Chronic kidney disease Contraceptive management Depression Diabetes ([facility]) Diarrhea DVT, lower extremity ([facility]) 08/2014 Right leg (6) Esophagitis ESRD (end stage renal disease) ([facility]) 07/03/2022 Facial fracture due to fall ([facility]) ([facility]) Fatigue Fibromyalgia Fracture Fracture of shaft of fibula GERD (gastroesophageal reflux disease) HLD (hyperlipidemia) on tricor Hyperlipidemia Hypertension Hypomagnesemia Hypopotassemia IBS (irritable bowel syndrome) Insomnia Intertrigo Knee pain Morbid obesity ([facility]) 03/11/2011 Myalgia Nausea Neck pain [...] daily at bedtime. flash glucose scanning reader (Ecloud ([place]) Information and TechnologySTYLE FESTUS 2 READER) Use to check glucose [...] Take 81 mg by mouth every morning.) Djgbldpj-Al-Kuj-Fe-FA ( VITAMIN) ORAL Tab Take 1 tablet [...] motion restrictions -Wound care at the patient's shelter facility for incisional monitoring -Pain control per shelter facility protocol -Elevation of the right lower [...] Surgery 09/18/2023 1:48 PM documented in this encounterCleveland Clinic [facility]06-18-2024 NoteHNO ID: [id number] Author: DORENE MURILLO MD Service: ? Author [...] extremity. The patient is recovering at a shelter facility and participating in physical therapy. The [...] Chronic kidney disease Contraceptive management Depression Diabetes ([facility]) Diarrhea DVT, lower extremity ([facility]) 08/2014 Right leg (6) Esophagitis ESRD (end stage renal disease) ([facility]) 07/03/2022 Facial fracture due to fall ([facility]) ([facility]) Fatigue Fibromyalgia Fracture Fracture of shaft of fibula GERD (gastroesophageal reflux disease) HLD (hyperlipidemia) on tricor Hyperlipidemia Hypertension Hypomagnesemia Hypopotassemia IBS (irritable bowel syndrome) Insomnia Intertrigo Knee pain Morbid obesity ([facility]) 03/11/2011 Myalgia Nausea Neck pain [...] Medications Medication Sig heparin (more content not included)...[facility]06-[facility] History of Present illness Narrative* Dorene Murillo [...] extremity. The patient is recovering at a shelter facility and participating in physical therapy. The [...] Chronic kidney disease Contraceptive management Depression Diabetes ([facility]) Diarrhea DVT, lower extremity ([facility]) 08/2014 Right leg (6) Esophagitis ESRD (end stage renal disease) ([facility]) 07/03/2022 Facial fracture due to fall ([facility]) ([facility]) Fatigue Fibromyalgia Fracture Fracture of shaft of fibula GERD (gastroesophageal reflux disease) HLD (hyperlipidemia) on tricor Hyperlipidemia Hypertension Hypomagnesemia Hypopotassemia IBS (irritable bowel syndrome) Insomnia Intertrigo Knee pain Morbid obesity ([facility]) 03/11/2011 Myalgia Nausea Neck pain [...] mouth once daily. flash glucose scanning reader (Ecloud ([place]) Information and TechnologySTYLE FESTUS 2 READER) Use to check glucose [...] Take 81 mg by mouth every morning.) Lujhymrv-Kb-Hoh-Fe-FA ( VITAMIN) ORAL Tab Take 1 tablet [...] knee extension -Wound care at the patient's shelter facility for daily dressing changes and incisional monitoring -Bactrim and Flagyl per infectious disease recommendations through 08/24/2023 -Pain control per shelter facility protocol -Elevation of the right lower extremity for swelling reduction -The patient will follow-up in 4 weeks or sooner if needed OARRS reviewed All patient questions and concerns were answered and addressed Dorene Murillo MD Orthopaedic Trauma Surgery 08/18/2023 1:34 PM documented in this encounterCleveland Clinic Hillcrest [facility]06-07-2024 NoteHNO ID: [id number] Author: BURKE GARVEY MD Service: Nephrology Author [...] ESRD. Patient is being discharged today to [facility]. She will be dialyzed here on [facility]Stage machine. She will be followed there by my partner, Dr. Hill. There is no need for dialysis today. Burke Garvey MD (Madya Mistry MD) Please do not hesitate to [...] 20 mg, ORAL, DAILY (6 AM), Lily Parker MD, 20 mg at 08/07/23 0415 dextrose [...] CREAT 2.89* CA 8. (more content not included)...[facility]06-07[facility]2024 Note HNO ID: [id number] Author: CHRIS LINK, RN Service: Care Management Author Type: Registered Nurse Type: Care Mgt Progress Note Filed: 08/07/2023 08:56 Note Text: CARE MANAGEMENT DISCHARGE NOTE SERVICE DATE: August 07, 2023 SERVICE TIME: 8:55 AM Admission Date: 07/29/2023 LOS: 9 days Discharge Arrangement Discharge Arrangement: [facility] Was an expedited discharge program used?: No Services Arranged Medical Services: Other: See Comment Caregiver Assessment Caregiver is ready, willing and able to meet the patient's needs as recommended by the inter-professional team: Yes Name of Caregiver: [facility] Transportation Arrangements Transportation Arrangements: Ambulance Transportation Agency and Phone #:: [facility] ( [facility] ) [phone] / [phone] Date of Trip: 08/07/23 Time of Trip: 1300 Type of Service: BLS Non-emergency Is Patient Medicaid Pending?: No Was transportation financial coverage discussed with family?: Patient Epidemiology Internship Location: [facility] Destination: [place] [employer] Care Management Responsibility: None Additional Information: Patient is discharging to [facility] via [facility] today at 1300. 7000 completed in toby Moyer RN to call report and packet next to patient chart. Facility will transport patient to [facility] for dialysis. SIGNATURE: Chris Link RN PATIENT NAME: Margareth Gonzalez DATE: August 07, 2023 TIME: 8:55 AM CONTACT #: [id number] Regional Hospital06-07-2024 Note HNO ID: [id number] Author: DORENE MURILLO MD Service: Orthopaedic Surgery [...] Dave Blanchard MD Orthopaedic Surgery 08/07/2023 5:43 AMMillinocket Regional Hospital06-07-2024 NoteHNO ID: [id number] Author: FRANNY NO, RN Service: Nursing Author Type: Registered Nurse Type: Nursing Progress Note Filed: 08/07/2023 04:30 Note Text: Attempted to collect morning labs, Pt. Refused, Ortho resident notified.[facility]05-29-[facility]24 Telephone encounter Note* Telephone Encounter - Nedra Cramer - 07/29/2023 8:00 AM EDT Chart indicates patient brought to ED and is scheduled with Dr. Murillo today for surgery of the wound. Nedra Cramer July 29, 2023 8:00 AM [facility]05-29-2024 Miscellaneous Notes* Telephone Encounter - Nedra Cramer [...] Nedra Cramer July 28, 2023 3:22 PM * Telephone Encounter - Nedra Cramer - 07/28/2023 1:40 PM EDT Received vm message from Gisselle at [facility], asking for an appointment to be scheduled forpatient's right lower extremity infection, . No office hours available until 08/02. Checking with Dr. Murillo to see what he advises. Nedra Cramer July 28, 2023 1:41 PM * Telephone Encounter - Nedra Cramer - 07/28/2023 1:12 PM EDT VM message from Halle, who called to say the patient is in a group home. She stated patient had surgery in her leg by in May. She stated her leg is infected, group home sent her to the hospital where she was given antibiotics. Stated the antibiotics make her ill, and patient's leg smells badly. Halle stated that the group home is not taking good care of the patient and she is reaching out for Dr. Murillo. Called Halle at [phone] and left vm message, asking what it is she is asking Dr. Murillo to do. I stated that he does not have the ability to oversee treating of the patient in the group home. Advising Dr. Murillo. Nedra Cramer July 28, 2023 1:14 PM documented in this encounterCleveland Clinic Hillcre[facility] Hospital05-28-2024 Telephone encounter Note * Telephone Encounter - [...] Nedra Cramer July 28, 2023 3:22 PM [facility] Telephone encounter Note* Telephone Encounter - Nedra Cramer - 07/28/2023 1:40 PM EDT Received vm message from Gisselle at [facility], asking for an appointment to be scheduled forpatient's right lower extremity infection, . No office hours available until 08/02. Checking with Dr. Murillo to see what he advises. Nedra Cramer July 28, 2023 1:41 PM [facility]05-28-2024 Telephone encounter Note* Telephone Encounter - Nedra Cramer - 07/28/2023 1:12 PM EDT VM message from Halle, who called to say the patient is in a group home. She stated patient had surgery in her leg by in May. She stated her leg is infected, group home sent her to the hospital where she was given antibiotics. Stated the antibiotics make her ill, and patient's leg smells badly. Halle stated that the group home is not taking good care of the patient and she is reaching out for Dr. Murillo. Called Halle at [phone] and left vm message, asking what it is she is asking Dr. Murillo to do. I stated that he does not have the ability to oversee treating of the patient in the group home. Advising Dr. Murillo. Ndera Cramer July 28, 2023 1:14 PM [facility]05-10-2024 Telephone encounter Note* Telephone Encounter - Rosemary [...] Oxycodone 5mg every 6 Hrs sent to [facility] fax number : [phone]. If reason for call/escalation is discharge from ED/ER or Hospital, which facility was the patient seen at: na Was an appointment scheduled (Y/N): n Person calling if other than patient: Wilma Voss with [facility] Return call to if other than patient: [phone] Best contact number: [phone] Thank you, Marie Andujar July 10, 2023 11:06 AM [facility]05-10-2024 Miscellaneous Notes* Telephone Encounter - Rosemary Hassan [...] sent to [facility] fax number : [phone]. If reason for call/escalation is discharge from ED/ER or Hospital, which facility was the patient seen at: na Was an appointment scheduled (Y/N): n Person calling if other than patient: Wilma Voss with [facility] Return call to if other than patient: [phone] Best contact number: [phone] Thank you, Marie Andujar July 10, 2023 11:06 AM documented in this encounterCleveland Clinic Hill[facility]05-06-2024 History of Present illness Narrative* Dorene Murillo [...] lower extremity. The patient is recoveringat a shelter facility. The patient denies fevers and chills. [...] Chronic kidney disease Contraceptive management Depression Diabetes ([facility]) Diarrhea DVT, lower extremity ([facility]) 08/2014 Right leg (6) Esophagitis ESRD (end stage renal disease) ([facility]) 07/03/2022 Facial fracture due to fall ([facility]) ([facility]) Fatigue Fibromyalgia Fracture Fracture of shaft of fibula GERD (gastroesophageal reflux disease) HLD (hyperlipidemia) on tricor Hyperlipidemia Hypertension Hypomagnesemia Hypopotassemia IBS (irritable bowel syndrome) Insomnia Intertrigo Knee pain Morbid obesity ([facility]) 03/11/2011 Myalgia Nausea Neck pain [...] daily at bedtime. flash glucose scanning reader (Object MatrixYLE FESTUS 2 READER) Use to check glucose 3 times daily and continuously. 1 per year. flash glucose sensor (Ecloud ([place]) Information and TechnologySTYLE FESTUS 2 SENSOR) kit Use to check glucose 3 times daily and continuously. Change every 14 days. 6 per 90 day supply. cholecalciferol (VITAMIN D3) 5,000 unit tab Take 5,000 Units by mouth twice daily. aspirin, enteric coated (ADULT LOW DOSE ASPIRIN) 81 mg EC tablet Take 1 tablet by mouth once daily. Cilzxeba-Aw-Xte-Fe-FA ( VITAMIN) ORAL Tab Take 1 tablet by mouth once daily. ferrous sulfate 325 mg (65 mg iron) tablet Take 1 tablet by mouth. sodium bicarbonate 650 mg tablet Take 2 tablets by mouth twice daily. No current facility-administered medications for this visit. ALLERGIES: ALLERGIES Allergen Reactions Vicodin [Hydrocodon* Vomiting Balsam 115 Balsam Blaine Unknown Barium Sulfate Unknown Benadryl Allergy De* [...] patient's nursing facility -Pain control: Roxicodone per shelter facility recommendation and acetaminophen -Ice and elevation [...] Surgery 07/09/2023 11:03 AM documented in this encounterCleveland Clinic Hillcre[facility]04-30-2024 Telephone encounter Note * Telephone Encounter - Rosemary Hassan - 06/30/2023 2:03 PM EDT ([phone] [facility]) called in inquiring about the Rx for pain. The physicians at the facilityprefer to have the originating dr prescribe the refills. Also needing to be sent to [facility] in [place] (which is their pharmacy). Called [facility] to have the current (06/29/23) cancelled. Rosemary Hassan June 30, 2023 2:12 PM [facility]04-30-2024 Miscellaneous Notes* Telephone Encounter - Rosemary Hassan - 06/30/2023 2:03 PM EDT SNF ([phone] [facility]) called in inquiring about the Rx for pain. The physicians at the facilityprefer to have the originating dr prescribe the refills. Also needing to be sent to [facility] in [place] (which is their pharmacy). Called [facility] to have the current (06/29/23) cancelled. Rosemary Hassan June 30, 2023 2:12 PM documented in this encounterCleveland Clinic [facility]04-30-2024 Discharge summary Author Ismael Gillespie [facility] June 29, 2023 10:46pm Note Date/Time June 29, 2023 8:0 3pm [facility] Medical Records Department [address] [place] [address] Emergency Department Summary 06/29/23 MR#: [id number] Acct: [id number] Name: Margareth GONZALEZ Rep #:[id number] 3 : 1965 58 From: Ismael Gillespie [...] hematocrit of 26.1. This was performed at [facility]) Timing: Continuous Quality: Fatigue and weakness Location: Generalized Current Severity: Mild Maximum Severity: Mild Worsened by: Dyspnea on exertion Relieved by: Nothing Associated Symptoms Associated Symptoms: Nothing Narrative Narrative: Patient is a 58-year-old woman. She underwent orthopedic surgery approximately 2 to 2.5 weeks ago. Stephen in her right leg was defective and broke. She had to undergo surgery at [facility]. She went underwent extensive surgery. She was [...] similar symptoms: No Recent Illness/Hospitalization: Yes [facility] Medical History Anemia Anxiety and depression Asthma [...] 100 mg PO DAILY STOOL SOFTENER #20 [id number]/16/23 [Rx Last Taken Unknown] labetalol 100 mg [...] discharged back to facility. Prior records from [facility] were reviewed. Priorhemoglobin at [facility] was March this year and 9.1. Suspecther [...] your Primary Care Provider. Call [facility] ([phone]) or report to the closest Emergency Room. Call 911 if necessary. 06/29/232110 <Electronically signed by Ismael Gillespie MD> Cosigner Signature (if applicable): CC: Dr. Ignacio Cheatham MD ~ Signed [facility] Work Phone: [phone]) 355-887004-24-2024 Telephone encounter Note* Telephone Encounter - Claudette Cordero LPN - 06/24/2023 10:50 AM EDT Ameena with [facility] called to let you know she pt's designated nurse child welfare caseworker. Direct line she can be reached at PH: [phone] EXT: [phone]. Claudette Cordero LPN [facility]04-24-2024 Miscellaneous Notes* Telephone Encounter - Claudette Cordero LPN - 06/24/2023 10:50 AM EDT Ameena with [facility] called to let you know she pt's designated nurse child welfare caseworker. Direct line she can be reached at PH: [phone] EXT: [phone]. Claudette Cordero LPN documented in this encounterCleveland Clinic Hill[facility]04-23-2024 Telephone encounter Note * Telephone Encounter - Rosemary Hassan - 06/23/2023 4:[address] [facility] [phone] and scheduled PT per Dr. Murillo's note. Rosemary Hassan June 23, 2023 4:08 PM [facility]04-23-2024 Miscellaneous Notes* Telephone Encounter - Rosemary Hassan - 06/23/2023 4:[address] [facility] [phone] and scheduled PT per Dr. Murillo's note. Rosemary Hassan June 23, 2023 4:08 PM * Telephone Encounter - Rosemary Hassan - 06/23/2023 1:48 PM EDT ----- Message from Sally Peralta sent at 06/23/2023 10:12 AM EDT ----- Regarding: Bfesu-Iomngunj-Uvwm Op- Tibia Fracture Subject Line Format: Orthopedics [...] which facility was the patient seen at: [facility] Was an appointment scheduled (Y/N): n/a Person calling if other than patient: [facility] Return call to if other than patient: [facility] Best contact number: [phone] Thank you, Sally Peralta June 23, 2023 10:13 AM * Telephone Encounter - Rosemary Hassan - 06/18/2023 9:15 AM EDT ----- Message from Dorene Murillo MD sent at 06/18/2023 8:59 AM EDT ----- Follow up 07/05. Thanks documented in this encounterCleveland Clinic Hillcrest Hospital04-23-2024 Telephone encounter Note * Telephone Encounter - Rosemary Hassan - 06/23/2023 1:48 PM EDT ----- Message from Sally Peralta sent at 06/23/2023 10:12 AM EDT ----- Regarding: Bnskm-Zvuztxhc-Ljdp Op- Tibia Fracture Subject Line Format: Orthopedics [...] which facility was the patient seen at: [facility] Was an appointment scheduled (Y/N): n/a Person calling if other than patient: [facility] Return call to if other than patient: [facility] Best contact number: [phone] Thank you, Sally Peralta June 23, 2023 10:13 AM [facility]04-18-2024 Telephone encounter Note* Telephone Encounter - Rosemary Hassan - 06/18/2023 9:15 AM EDT ----- Message from Dorene Murillo MD sent at 06/18/2023 8:59 AM EDT ----- Follow up 07/05. Thanks [facility]04-16-2024 Ismael from [facility] called to see if referral was received. Confirmed it's in media. Teams sent, no response. Disconnected then saw the message. Called sister Halle to schedule and made he aware she went into the ER at [facility] and had surgery 06/12/23 w/ Dr. Dorene Murillo. NO apt made. Returned call to Linda @ [phone] to make her aware the referral was not scheduled. Patient still in house with [facility] from surgery.[facility] 06-16-2023 Telephone encounter Note* Telephone Encounter - Radha Smith - 06/16/2023 2:48 PM EDT Linda from [facility] called to see if referral was received. Confirmed it's in media. Teams sent, no response. Disconnected then saw the message. Called sister Halle to schedule and made he aware she went into the ER at [facility] and had surgery 06/12/23 w/ Dr. Dorene Murillo. NO apt made. Returned call to Linda @ [phone] to make her aware the referral was not scheduled. Patient still [facility] with [id number] Miscellaneous Notes* Telephone Encounter - Radha Smith - 06/16/2023 2:48 PM EDT Linda from [facility] called to see if referral was received. Confirmed it's in media. Teams sent, no response. Disconnected then saw the message. Called sister Halle to schedule and made he aware she went into the ER at [facility] and had surgery 06/12/23 w/ Dr. Dorene Murillo. NO apt made. Returned call to Linad @ [phone] to make her aware the referral was not scheduled. Patient still in house with [facility] from surgery. * Telephone Encounter - Liz Hopper - 06/15/2023 9:53 AM EDT Referral information received. Attempted to call Halle justice, to schedule. No answer. LVM with direct line. 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 Hassan. Linda states that she faxed over records a few days ago. After checking informed her that office did not receive the records. She is going to refax the documents and states she will call back on Thursday. Office Name: Ortho documented in this [facility]04-15-2024 NoteReferral information received. Attempted to call Halle justice, to schedule. No answer. LVM with direct line. 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 Attempted to call sister, Halle, to schedule. No answer. LVM with direct line. 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 pathological fx, right tibia, delayed healing, referral from [facility] in media, Patient to bring CT from 06/21 on disc [facility] [id number] Telephone encounter Note* Telephone Encounter - Ирина Lindsey - 06/12/2023 3:57 PM EDT Name of Caller: Linda - [facility] Contact Reason for Appointment: BREANNA Villavicencio [...] Office Name: Ortho [facility] [id number] Miscellaneous Notes* Telephone Encounter - Sarah Zaman MA - 06/11/2023 7:49 AM EDT Patient seen at [facility] and transferred to [facility]. She is admitted and scheduled for surgery tomorrow. * Telephone Encounter - Elvira Maldonado RN - 06/10/2023 3:34 PM EDT Arnold called. The stephen that was placed in her leg in November of 2022 has broken. She has been advisedthat she needs to find an orthopaedic trauma surgeon within the [facility] to repair it forher. Would Dr. Riggs be able to do a referral for her? Arnold also stated that, if he cannot help her, should she be evaluated at [facility] ER and see if they can refer her to a provider? She would like to speak with someone as soon as possible. If she does not answer, you may leave a detailed message on her voicemail for number [phone]. Elvira Maldonado RN documented in this encounterCleveland Clinic [facility]04-08-2024 Telephone encounter Note * Telephone Encounter - Kat Joaquin LPN - 06/08/2023 10:12 AM EDT Pt. calling to let you know she was in Er and has a crack in a stephen that is in her leg. She is goingto Follow up with Ortho on Thursday. Leg is slightly red if it gets worse will call tomorrow. [facility] Work Phone: [phone] 425-171404-08-2024 Miscellaneous Notes* Telephone Encounter - Kat Joaquin LPN - 06/08/2023 10:12 AM EDT Pt. calling to let you know she was in Er and has a crack in a stephen that is in her leg. She is goingto Follow up with Ortho on Thursday. Leg is slightly red if it gets worse will call tomorrow. documented in this encounterCleveland Clinic [facility] Hospital03-20-2024 Miscellaneous Notes* Telephone Encounter - Ignacio Cheatham [...] symptoms. Ameena Dumont, RN documented in this encounterCleveland Clinic Hillcrest Hospital03-15-2024 Instructions* Patient Instructions* Frank Gerard - 05/15/2023 [...] (or decreased sensation in your feet) a bilingual social worker should always cut your toenails. Be Careful [...] Go to your health care provider or bilingual social worker to treat these conditions. Recommend topical antibiotic (neosporin) to right great toe until healed. documented in this encounterCleveland Clinic Hillcrest Hospital03-15-2024 History of Present illness Narrative* Davidlila Frank [...] Chronic kidney disease Contraceptive management Depression Diabetes ([facility]) Diarrhea DVT, lower extremity ([facility]) 08/2014 Right leg (6) Esophagitis ESRD (end stage renal disease) ([facility]) 07/03/2022 Facial fracture due to fall ([facility]) ([facility]) Fatigue Fibromyalgia Fracture Fracture of shaft of fibula GERD (gastroesophageal reflux disease) HLD (hyperlipidemia) on tricor Hyperlipidemia Hypertension Hypomagnesemia Hypopotassemia IBS (irritable bowel syndrome) Insomnia Intertrigo Knee pain Morbid obesity ([facility]) 03/11/2011 Myalgia Nausea Neck pain [...] mouth once daily. flash glucose scanning reader ([employer]cloud ([employer] and TechnologySTYLE FESTUS 2 READER) Use to check glucose [...] Take 1 tablet by mouth once daily. Kgamhlxk-Qb-Dqc-Fe-FA ( VITAMIN) ORAL Tab Take 1 tablet [...] Objective: Patient presents to clinic [facility] Constitutional: Pt is a well developed 57 [...] where stephen and plates were placed at [facility] by Dr. Tucker. Patient states she has calcium build up in and in September 2022 while she was in group home she felt tendons snap which causes bruising. Patient has small wound to right great toe. Laura Valenzuela LPN documented in this encounterCleveland [facility]03-01-[facility]24 History of Present illness Narrative* Gege Mccrary, OD - 05/01/2023 11:32 AM EST 1. 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, with long-term current use of insulin (HCC) Both eyes s/p Pars plana vitrectomy / Panretinal laser photocoagulation Posterior chamber intraocular lens Both eyes. Recommended tight BS control Educated patient to continue care with primary care doctor and/or food counter worker to maintain optimum levels as they are [...] 01, 2023 11:32 AM documented in this encounterCleveland Clinic Hill[facility]02-13-2024 Miscellaneous Notes* Telephone Encounter - Diana Brand [...] advise, Diana Brand RN documented in this encounterCleveland Clinic [facility]02-05-2024 Miscellaneous Notes* Telephone Encounter - Ada Cheng - 04/06/2023 1:16 PM EST Patient informed and verbalized understanding. No chest pain or shortness of breath. Ada Cheng * Telephone Encounter - Ignacio Cheatham [...] or shortness of breath. documented in this encounterCleveland Clinic Hill[facility]02-02-2024 History of Present illness Narrative* Felix Edmondson [...] PATIENT PRESENTS WITH AN IMPLANTABLE OR ATTACHED HIGH CLIMBER: No RADIOLOGY DEPARTMENT: CT; Exam(s) Completed: Chest PERIPHERAL IV DATA: Not applicable SIGNED BY: RT Howie(R) April 03, 2023 2:46 PM documented in this encounterCleveland Clinic [facility]01-16-2024 History of Present illness Narrative* Milvia Brown [...] 17, 2023 12:07 PM documented in this encounterCleveland Clinic [facility]11-30-2023 Discharge summary Author Carolina Caba [facility] January 29, 2023 11:47am Note Date/Time January 29, 2023 11:47am [facility] Medical Records Department [address] [place] [address] Transfer to [facility] MR#: [id number] Acct: [id number] Name: Margareth GONZALEZ Rep #:[id number] 8 : 1965 57 From: Carolina Caba MD PCP: Dr. Ignacio Cheatham MD Status:ADM I N Certification of patient admission REQUIRED AT TIME OF ADMISSION. I CERTIFY THAT POST-HOSPITAL ECF SERVICES ARE REQUIRED TO BE GIVEN ON AN IN-PATIENT BASIS BECAUSE OF THE ABOVE NAMED PATIENT'S NEED FOR SNF CARE ON A CONTINUING BASIS FOR THE CONDITION(S) FOR WHICH HE/SHE WAS RECEIVING IN-PATIENT HOSPITAL SERVICES PRIOR TO HIS/HER TRANSFER TO THE [facility]. 01/29/23 1147<Electronically signed by Carolina Caba MD> [...] - Active Staff] - Within 2 Weeks Igancio Cheatham MD [Primary Care Provider] - Within 1 Week Disposition Disposition (needs filled in before D/C Order can be placed): [facility] (4) Anemia Qualifiers: Anemia type: due to chronic kidney disease 01/29/23 1147 <Electronically signed by Carolina Caba MD> Cosigner Signature (if applicable): CC: Dr. Sofía Hill MD; Dr. Mone Riggs MD; Dr. Branden Banks MD; Dr.Steven Garrett MD; Dr. Ignacio Cheatham MD ~ [facility] Work Phone: 1(140) 415-330411-29-2023 Progress note Author [facility] January 28, 2023 4:50pm Note Date/Time January 28, 2023 10:14[facility] Medical Records Department [address] [place] [address] Progress Note 01/28/23 1009 MR#: [id number] Acct: [id number] Name: Margareth GONZALEZ [facility] Rep #:[id number] 8 : 1965 57 From: Carolina Caba MD PCP: Dr. Ignacio Cheatham MD Status:ADM I N Location: [place] [address] Subjective Subjective Patient seen and examined. She [...] Neut % (Auto) 59.6, Lymph % (Auto)22.5, Camas % (Auto) 9.6, Eos % (Auto) 5.0, [...] CN's II-XII intact bilaterally Coordination / Balance: mkxqpl-yj-zhqv test normal Motor Exam: general weakness Psych [...] pending precert. Charges/Coding Visit Charges Inpatient E&M: 00321 Subs Hosp L2 01/28/23 8300 <Electronically signed by Carolina Caba MD> Carolina Caba MD Cosigner Signature (if applicable): CC: ~ Signed [facility] Work Phone: 1(537) 716-199411-29-2023 Progress note Author Maday Lutz tr [facility] January 28, 2023 2:07pm Note Date/Time January 28, 2023 9:53am [facility] Medical Records Department [address] [place] [address] Progress Note - Nephrology 01/28/23 0951 MR#: [id number] Acct: [id number] Name: Margareth GONZALEZ Rep #:[id number] 5 : 1965 57 From: Leda joshi ROLLING MACHINE OPERATOR-C PCP: Dr. Ignacio Cheatham MD Status:ADM I N Location: [place] [address] Subjective Subjective Resting in bed, no complaints. [...] Neut % (Auto) 59.6, Lymph % (Auto)22.5, Camas % (Auto) 9.6, Eos % (Auto) 5.0, [...] management. ESRD; HD TTS schedule at [facility]. Dialyzed yesterday. 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 Anemia in chronic kidney disease; monitor hemoglobin trends. Will continue giving JENISE with dialysis Discharge planning in progress to ECF for therapy, waiting for insurance approval. If discharged to ECF today, next dialysis would be tomorrow at [facility]. 01/28/23 6142 <Electronically signed by Leda KIMBALL> Cosigner Signature (if applicable): 01/28/23 1407 <Electronically signed by Maday Mistry MD> CC: ~ Signed [facility] Work Phone: [phone] 460-274911-29-2023 Miscellaneous Notes* Telephone Encounter - Sarah Merida Ma - 01/28/2023 12:58 PM EST Received approval for Trulicity 1.5mg from [employer]. Effective 12/29/22 until 01/28/24. CLOSED * Telephone Encounter - Sarah Merida Ma - 01/28/2023 11:26 AM EST PA questionnaire faxed, Transmission ok Keep open * Telephone Encounter - Audra Gonzalez RN - 01/27/2023 3:08 PM EST Received PA forms from [employer] to complete for RX Trulicity. Completed questionnaire. Placed forms and office notes in providers in box for signature and date. Note: Patient has not been seen since 10/02/21. She has scheduled for 03/04/23, but this could impact whether this gets approved as she has not been evaluated. documented in this encounterCleveland Clinic [facility]11-28-2023 Progress note Author Carolina [facility] January 27, 2023 4:26pm Note Date/Time January 27, 2023 10:05am [facility] Medical Records Department [address] [place] [address] Progress Note 01/27/23 1003 MR#: [id number] Acct: [id number] Name: Margareth GONZALEZ Rep #:[id number] 1 : 1965 57 From: Carolina Caba MD PCP: Dr. Ignacio Cheatham MD Status:ADM I N Location: [place] [address] Subjective Subjective Patient seen and examined. She [...] CN's II-XII intact bilaterally Coordination / Balance: pcqprf-fw-gaqa test normal Motor Exam: general weakness Psych [...] pending precert. Charges/Coding Visit Charges Inpatient E&M: 76462 Subs Hosp L2 01/27/23 1626 <Electronically signed by Carolina Caba MD> Carolina Caba MD Cosigner Signature (if applicable): CC: ~ Signed [facility] Work Phone: [phone]) 955-286411-27-2023 Progress note Author Sofía Hill [facility] January 26, 2023 7:32pm Note Date/Time January 26, 2023 9:00am [facility] Medical Records Department [address] [place], [place] [address] [place] [address] Progress Note - Nephrology 01/26/23 0855 MR#: [id number] Acct: [id number] Name: Margareth GONZALEZ Rep #:[id number] 2 : 1965 57 From: Leda joshi ROLLING MACHINE OPERATOR-C PCP: Dr. Ignacio Cheatham MD Status:ADM I N Location: [place] [address] Subjective Subjective Resting in bed. No complaints. [...] (Auto) 81.3 H, Lymph % (Auto)9.4 L, Camas % (Auto) 6.3, Eos % (Auto) 2.2, [...] management. ESRD; HD TTS schedule at [facility]. No acute indication for SENIOR LIVING SALES COUNSELOR today. Will plan for dialysis tomorrow. Hyperkalemia; resolved. Dialysis tomorrow on 2K bath Anemia in chronic kidney disease; hemoglobin 8.6 today. Will continue JENISE with dialysis and monitor hgb trends Discharge planning in progress possibly to ECF for therapy 01/26/23 0900 <Electronically signed by Leda KIMBALL> Cosigner Signature (if applicable): 01/26/23 193 <Electronically signed by Sofía Hill MD> CC: ~ Signed [facility] Work Phone: [phone]) 495-666811-27-2023 Progress note Author Carolina Caba [facility] January 26, 2023 4:08pm Note Date/Time January 26, 2023 2:46pm [facility] Medical Records Department [address] [place] [address] Progress Note 01/26/231442 MR#: [id number] Acct: [id number] Name: Margareth GONZALEZ Rep #:[id number] 5 : 1965 57 From: Carolina Caba MD PCP: Dr. Ignacio Cheatham MD Status:ADM I N Location: [place] [address] Subjective Subjective Patient seen and examined. She [...] (Auto) 81.3 H, Lymph % (Auto)9.4 L, Camas % (Auto) 6.3, Eos % (Auto) 2.2, [...] CN's II-XII intact bilaterally Coordination / Balance: vrrfeb-sa-meee test normal Motor Exam: general weakness Psych [...] on eliquis. Charges/Coding Visit Charges Inpatient E&M: 18851 Subs Hosp L2 01/26/23 1607 <Electronically signed by Carolina Caba MD> Carolina Caba MD Cosigner Signature (if applicable): CC: ~ Signed [facility] Work Phone: [phone]) [phone] Miscellaneous Notes* Telephone Encounter - Mehreen Caldwell, GRACE - 01/26/2023 2:35 PM EST Did you want to increase dose? NOV: 03/04/23 Attached is 1.5mg Trulicity RX. documented in this encounterC[facility]11-26-2023 Progress note Author Branden Banks [facility] January 25, 2023 1:00pm Note Date/Time January 25, 2023 9:29am [facility] Medical Records Department [address] [place] [address] Progress Note - Hospitalist 01/25/23 0929 MR#: [id number] Acct: [id number] Name: Margareth GONZALEZ Rep #:[id number] 3 : 1965 57 From: Branden Booker PCP: Dr. Ignacio Cheatham MD Status:ADM I N Location: [place] [address] Reason for Visit Reason for Visit: Diagnoses [...] % (Auto) 67.2, Lymph % (Auto) 20.0, Camas% (Auto) 9.5, Eos % (Auto) 2.7, Baso [...] yesterday. Continue stool softeners. Discussed with the hazardous substances scientist. Physical exam: General: Alert, Oriented x3, Cooperative [...] 433. Vitamin B12 543. Discussed with the hazardous substances scientist. She started dialysis about 1 year ago her phosphate and PTH is not very high to warrant or indication of treatment. Bicarb is 26 and patient on sodium bicarbonate. As per hazardous substances scientist, phosphorusabove 600 might need treatment. 01/22: Patient [...] renal disease on dialysis Thursday, , Thursday: Bevel Operator consulted. -Potassium very slightly elevated at 5.3, repeat potassium 5.4. Patient undergoing hemodialysis. No shortness of breath or hypoxia. 01/22: Hyperkalemia K6.0. No signs of acute hyperkalemia like tenting of T waves or widened QRS complex/sine waves on EKG. Kayexalate given. Discussed with nursing staff to inform hazardous substances scientist that patient might need dialysis. Shehad only 2.5 hours of dialysis yesterday. 01/23: Patient is still urinates about 500 mL. Potassium is normal after hyperkalemia cocktail and Kayexalate yesterday. No need for hemodialysis. Discussed with the hazardous substances scientist. 01/24: Electrolytes are in acceptable range. K5.0. [...] low-dose Eliquis. Charges/Coding Visit Charges Inpatient E&M: 30284 Subs Hosp L2 01/25/23 1300 <Electronically signed by Branden Banks MD> Cosigner Signature (if applicable): CC: ~ Signed [facility] Work Phone: [phone]) 732-820511-26-2023 Progress note Author Maday perez [facility] January 25, 2023 9:52am Note Date/Time January 25, 2023 8:18am [facility] Medical Records Department [address] [place] [address] Progress Note - Nephrology 01/25/23814 MR#: [id number] Acct: [id number] Name: Margareth GONZALEZ Rep #:[id number] 2 : 1965 57 From: Maday chan MD PCP: Dr. Ignacio Cheatham MD Status:ADM I N Location: [place] [address] Subjective Subjective Following for ESRD. The patient [...] % (Auto) 67.2, Lymph % (Auto) 20.0, Camas% (Auto) 9.5, Eos % (Auto) 2.7, Baso [...] patient usually dialyzes on TTS schedule at [facility]. is her primary hazardous substances scientist. The patient is on on Thursday, Thursday, [...] Cosigner Signature (if applicable): CC: ~ Signed [facility] Work Phone: 1(315) 553-215011-25-2023 Progress note Author Branden Banks [facility] January 24, 2023 12:28pm Note Date/Time January 24, 2023 12:21pm [facility] Medical Records Department [address] [place] [address] Progress Note - Hospitalist 01/24/23 1218 MR#: [id number] Acct: [id number] Name: Margareth GOZNALEZ Rep #:[id number] 9 : 1965 57 From: Branden Booker PCP: Dr. Ignacio Cheatham MD Status:ADM I N Location: [place] [address] Reason for Visit Reason for Visit: Diagnoses [...] % (Auto) 61.1, Lymph % (Auto) 25.5, Camas% (Auto) 9.7, Eos % (Auto) 3.1, Baso [...] not sufficient and adequate. Discussed with the hazardous substances scientist and orthopedic surgeon. Physical exam: General: Alert, [...] 433. Vitamin B12 543. Discussed with the hazardous substances scientist. She started dialysis about 1 year ago her phosphate and PTH is not very high to warrant or indication of treatment. Bicarb is 26 and patient on sodium bicarbonate. As per hazardous substances scientist, phosphorusabove 600 might need treatment. 01/22: Patient [...] renal disease on dialysis Thursday, , Thursday: Bevel Operator consulted. -Potassium very slightly elevated at 5.3, repeat potassium 5.4. Patient undergoing hemodialysis. No shortness of breath or hypoxia. 01/22: Hyperkalemia K6.0. No signs of acute hyperkalemia like tenting of T waves or widened QRS complex/sine waves on EKG. Kayexalate given. Discussed with nursing staff to inform hazardous substances scientist that patient might need dialysis. Shehad only 2.5 hours of dialysis yesterday. 01/23: Patient is still urinates about 500 mL. Potassium is normal after hyperkalemia cocktail and Kayexalate yesterday. No need for hemodialysis. Discussed with the hazardous substances scientist. 01/24: Electrolytes are in acceptable range. K5.0. #Type 2 diabetes mellitus: Glucose in [facility] is 81. Serum magnesium 2.1. -Glucose checks [...] low-dose Eliquis. Charges/Coding Visit Charges Inpatient E&M: 50781 Subs Hosp L2 01/24/23 1228 <Electronically signed by Brandne Banks MD> Cosigner Signature (if applicable): CC: ~ Signed [facility] Work Phone: [phone]) 510-723711-25-2023 Progress note Author Maday Lutz tr [facility] January 24, 2023 9:16am Note Date/Time January 24, 2023 9:16am [facility] Medical Records Department [address] [place] [address] Progress Note - Nephrology 01/24/23911 MR#: [id number] Acct: [id number] Name: Margareth GONZALEZ Rep #:[id number] 1 : 1965 57 From: Maday chan MD PCP: Dr. Ignacio Cheatham MD Status:ADM I N Location: [place] [address] Subjective Subjective Following for ESRD. Patient seen [...] % (Auto) 61.1, Lymph % (Auto) 25.5, Camas% (Auto) 9.7, Eos % (Auto) 3.1, Baso [...] patient usually dialyzes on TTS schedule at [facility]. is her primary hazardous substances scientist. The patient is on on Thursday, Thursday, [...] Cosigner Signature (if applicable): CC: ~ Signed [facility] Work Phone: 1(158) 861-364411-24-2023 Progress note Author Branden Banks [facility] January 23, 2023 12:25pm Note Date/Time January 23, 2023 12:25pm [facility] Medical Records Department [address] [place] [address] Progress Note - Hospitalist 01/23/23 1203 MR#: [id number] Acct: [id number] Name: Margareth GONZALEZ Rep #:[id number] 2 : 1965 57 From: Branden Booker PCP: Dr. Ignacio Cheatham MD Status:ADM I N Location: [place] [address] Reason for Visit Reason for Visit: Diagnoses [...] (Auto) 71.5 H, Lymph % (Auto)16.9 L, Camas % (Auto) 9.3, Eos % (Auto) 1.6, [...] the right tibia-fibula. Dressing is dry andintact. Hananh wrap bandage on. ROM not attempted. Neurological: [...] 433. Vitamin B12 543. Discussed with the hazardous substances scientist. She started dialysis about 1 year ago her phosphate and PTH is not very high to warrant or indication of treatment. Bicarb is 26 and patient on sodium bicarbonate. As per hazardous substances scientist, phosphorusabove 600 might need treatment. 01/22: Patient [...] renal disease on dialysis Thursday, , Thursday: Bevel Operator consulted. -Potassium very slightly elevated at 5.3, repeat potassium 5.4. Patient undergoing hemodialysis. No shortness of breath or hypoxia. 01/22: Hyperkalemia K6.0. No signs of acute hyperkalemia like tenting of T waves or widened QRS complex/sine waves on EKG. Kayexalate given. Discussed with nursing staff to inform hazardous substances scientist that patient might need dialysis. Shehad only 2.5 hours of dialysis yesterday. 01/23: Patient is still urinates about 500 mL. Potassium is normal after hyperkalemia cocktail and Kayexalate yesterday. No need for hemodialysis. Discussed with the hazardous substances scientist. #Type 2 diabetes mellitus: Glucose in BMP [...] low-dose Eliquis. Charges/Coding Visit Charges Inpatient E&M: 60858 Subs Hosp L2 01/23/23 4785 <Electronically signed by Branden Banks MD> Cosigner Signature (if applicable): CC: ~ Signed [facility] Work Phone: [phone]) 729-736711-24-2023 Progress note Author Deshawn Tucker [facility] January 23, 2023 10:15am Note Date/Time January 23, 2023 10:16am [facility] Medical Records Department [address] [place] [address] Progress Note - Orthopedic 01/23/23 1011 MR#: [id number] Acct: [id number] Name: Margareth GONZALEZ Rep #:[id number] 5 : 1965 57 From: Deshawn Booker PCP: Dr. Ignacio Cheatham MD Status:ADM I N Location: [place] [address] Subjective Subjective Patient reports she is doing [...] (Auto) 71.5 H, Lymph % (Auto)16.9 L, Camas % (Auto) 9.3, Eos % (Auto) 1.6, [...] with any further questions or concerns. [facility] Office: 01/23/23 1015 <Electronically signed by Deshawn Tucker MD> Cosigner Signature (if applicable): CC: ~ Signed [facility] Work Phone: [phone]) 522-383211-23-2023 Progress note Author Maday Lutz tr [facility] January 22, 2023 6:33pm Note Date/Time January 22, 2023 6:33pm [facility] Medical Records Department [address] [place] [address] Progress Note - Nephrology 01/22/23 1821 MR#: [id number] Acct: [id number] Name: Margareth GONZALEZ Rep #:[id number] 9 : 1965 57 From: Maday chan MD PCP: Dr. Ignacio Cheatham MD Status:ADM I N Location: [place] [address] Subjective Subjective Following for ESRD. Objective Data [...] patient usually dialyzes on TTS schedule at [facility]. is her primary hazardous substances scientist. The patient is on on Thursday, Thursday, [...] Cosigner Signature (if applicable): CC: ~ Signed [facility] Work Phone: [phone]) [phone] Progress note Author Branden Banks [facility] January 22, 2023 2:21pm Note Date/Time January 22, 2023 2:04pm [facility] Medical Records Department [address] [place] [address] Progress Note - Hospitalist 01/22/23 1356 MR#: [id number] Acct: [id number] Name: Margareth GONZALEZ Rep #:[id number] 4 : 1965 57 From: Branden Booker PCP: Dr. Ignacio Cheatham MD Status:ADM I N Location: [place] [address] Reason for Visit Reason for Visit: Diagnoses [...] Kayexalate given. Discussed with her and the hazardous substances scientist regarding metabolic bone disease. Patient states her [...] 433. Vitamin B12 543. Discussed with the hazardous substances scientist. She started dialysis about 1 year ago her phosphate and PTH is not very high to warrant or indication of treatment. Bicarb is 26 and patient on sodium bicarbonate. As per hazardous substances scientist, phosphorusabove 600 might need treatment. 01/22: Patient had right suprapatellar intramedullary tibial nail. Found to have right pathological transverse proximal tibia extra-articular fracture. #End-stage renal disease on dialysis Thursday, , Thursday: Bevel Operator consulted. -Potassium very slightly elevated at 5.3, repeat potassium 5.4. Patient undergoing hemodialysis. No shortness of breath or hypoxia. 01/22: Hyperkalemia K6.0. No signs of acute hyperkalemia like tenting of T waves or widened QRS complex/sine waves on EKG. Kayexalate given. Discussed with nursing staff to inform hazardous substances scientist that patient might need dialysis. Shehad only [...] Heparin subcu Charges/Coding Visit Charges Inpatient E&M: 02449 Subs Hosp L2 01/22/23 1404 <Electronically signed by Branden Banks MD> Cosigner Signature (if applicable): CC: ~ Signed ADDENDUM by Dr. Branden Banks MD on 01/22/23 at 1421 Addendum Hyperkalemia: Bevel Operator was informed. Hyperkalemia cocktail ordered per hazardous substances scientist. Repeat potassium to see any decrease and then will decide about the further plan. 01/22/23 1421<Electronically signed by Branden Banks MD> Cosigner Signature (if applicable): cc: ~* Signed [facility] Work Phone: 1(272) 242-794711-23-2023 Progress note Author Deshawn Tucker [facility] January 22, 2023 8:30am Note Date/Time January 22, 2023 8:30am [facility] Medical Records Department [address] [place] [address] Progress Note - Orthopedic 01/22/23823 MR#: [id number] Acct: [id number] Name: Margareth GONZLAEZ Rep #:[id number] 5 : 1965 57 From: Deshawn Booker PCP: Dr. Ignacio Cheatham MD Status:ADM I N Location: [place] [address] Subjective Subjective 57-year-old female postop day 1 [...] with any further questions or concerns. [facility] Office: 01/22/23829 <Electronically signed by Deshawn Tucker MD> Cosigner Signature (if applicable): CC: ~ Signed [facility] Work Phone: 1(685) 599-458511-22-2023 Progress note Author Branden Banks [facility] January 21, 2023 3:10pm Note Date/Time January 21, 2023 8:32am [facility] Medical Records Department [address] [place] [address] Progress Note - Hospitalist 01/21/23828 MR#: [id number] Acct: [id number] Name: Margareth GONZALEZ Rep #:[id number] 1 : 1965 57 From: Branden Booker PCP: Dr. Ignacio Cheatham MD Status:ADM I N Location: [place] [address] Reason for Visit Reason for Visit: Diagnoses [...] Neut % (Auto) 56.6, Lymph % (Auto)29.6, Camas % (Auto) 11.3 H, Eos % (Auto) [...] [facility] Patient serum calcium is 8.6, phosphorus 5.9, magnesium 2.1. Vitamin D 25 and phosphorus are 83.2 and 5.4 respectively. PTH high 433. Vitamin B12 543. Discussed with the hazardous substances scientist. She started dialysis about 1 year ago her phosphate and PTH is not very high to warrant or indication of treatment. Bicarb is 26 and patient on sodium bicarbonate. As per hazardous substances scientist, phosphorusabove 600 might need treatment. #End-stage renal disease on dialysis Thursday, , Thursday: Bevel Operator consulted. -Potassium very slightly elevated at 5.3, [...] Heparin subcu Charges/Coding Visit Charges Inpatient E&M: 90086 Subs Hosp L2 01/21/23 1510 <Electronically signed by Branden Banks MD> Cosigner Signature (if applicable): CC: ~ Signed [facility] Work Phone: 1(338) 494-581211-22-2023 [facility] Consult note Author Sofía Hill [facility] January 21, 2023 7:52am Note Date/Time January 21, 2023 7:53am [facility] Medical Records Department [address] [place] [id number] Consultation - Nephrology 01/21/23 0747 MR#: [id number] Acct: [id number] Name: Margareth GONZALEZ Rep #:[id number] : 1965 57 From: Sofía velasco MD PCP: Dr. Ignacio Cheatham MD Status:ADM I N Location: [place] [address] Assessment & Plan Assessment/Plan (1) ESRD (end [...] last HD yesterday. currently denies any complaints. [facility] Medical History Anxiety and depression Asthma Benign [...] % (Auto) 56.6, Lymph % (Auto) 29.6, Camas % (Auto) 11.3 H, Eos % (Auto) [...] Deshawn Tucker MD; Dr.William Linden MD~ Signed [facility] Work Phone: 1(971) 770-731511-21-2023 Consult note Author Deshawn Garrett [facility] January 20, 2023 4:19pm Note Date/Time January 20, 2023 4:10pm [facility] Medical Records Department [address] [place] [address] Consultation - Orthopedics 01/20/23 1603 MR#: [id number] Acct: [id number] Name: Margareth GONZALEZ Rep #:[id number] : 1965 57 From: Deshawn Booker PCP: Dr. Ignacio Cheatham MD Status:ADM I N Location: [place] [address] HPI Consult Data Date of Consult: 01/20/23 [...] wasunder the care of Dr. Riggs at [facility] who managed her locally however, he is [...] obtained no significant bony lesions are appreciated. [facility] Medical History Anxiety and depression Asthma Benign [...] % (Auto) 54.6, Lymph % (Auto) 30.7, Camas % (Auto) 10.0, Eos % (Auto) 3.7, [...] Deshawn Tucker MD; Dr.William Linden MD~ Signed [facility] Work Phone: 1(662) 194-796711-21-2023 Progress note Author Brandenjessica Banks [facility] January 20, 2023 12:34pm Note Date/Time January 20, 2023 8:01am [facility] Medical Records Department [address] [place] [address] Progress Note - Hospitalist 01/20/23 0755 MR#: [id number] Acct: [id number] Name: Margareth GONZALEZ Rep #:[id number] : 1965 57 From: Branden Booker PCP: Dr. Ignacio Cheatham MD Status:ADM I N Location: [place] [address] Reason for Visit Reason for Visit: Diagnoses [...] % (Auto) 54.6, Lymph % (Auto) 30.7, Camas % (Auto) 10.0, Eos % (Auto) 3.7, [...] renal disease on dialysis Thursday, , Thursday: Bevel Operator consulted. -Potassium very slightly elevated at 5.3, [...] Heparin subcu Charges/Coding Visit Charges Inpatient E&M: 67549 Subs Hosp L2 01/20/23 1234 <Electronically signed by Branden Banks MD> Cosigner Signature (if applicable): CC: ~ Signed [facility] Work Phone: 1(441) 904-949311-20-2023 Discharge summary Author Yariel Wilks [facility] January 19, 2023 4:10pm Note Date/Time January 19, 2023 7:28am [facility] Medical Records Department [address] [place] [address] Emergency Department Summary 01/19/23 MR#: [id number] Acct: [id number] Name: Margareth GONZALEZ ARNOLD Rep #:[id number] : 1965 57 From: Yariel Wilks DO PCP: Dr. Ignacio Cheatham MD Status:ADM I N Location: [place] [address] HPI History of Present Illness Chief Complaint: [...] pain and she states nobody found anything. [facility] Medical History (Updated 01/19/23 @ 13:50 by [...] % (Auto) 59.5 Lymph % (Auto) 27.1 Camas % (Auto) 8.2 Eos % (Auto) 4.1 [...] your Primary Care Provider. Call [facility] ([phone]) or report to the closest Emergency Room. Call 911 if necessary. 01/19/23 1610 <Electronically signed by Yariel Wilks DO> Cosigner Signature (if applicable): CC: Dr. Ignacio Cheatham MD ~ Signed [facility] Work Phone: 1(612) 916-374811-20-2023 History and physical note Author Mone Riggs [facility] January 19, 2023 2:01pm Note Date/Time January 19, 2023 1:51pm [facility] Medical Records Department [address] [place] [address] H&P Exam - Hospitalist 01/19/23 1343 MR#: [id number] Acct: [id number] Name: Margareth GONZALEZ Rep #:[id number] : 1965 57 From: Mone Riggs MD PCP: Dr. Ignacio Cheatham MD Status:ADM I N Location: [place] [address] HPI - General General Date of Admission: 01/19/23 Date of Service: 01/19/23 Chief Complaint: RLE pain HPI Narrative Margareth GONZALEZ, is a 57-year-old female with a history of COPD, type 2 diabetes mellitus, depression, hypertension, end-stage renal disease on dialysis Judith,, Thursday, neuropathy, and obesity who presented to [facility] 01/19/2023 after a fall with right leg [...] she has no other new physical complaints. [facility] Medical History (Updated 01/19/23 @ 13:50 by [...] % (Auto) 59.5, Lymph % (Auto) 27.1, Camas % (Auto) 8.2, Eos % (Auto) 4.1, [...] documentation, 60minutes Charges/Coding Visit Charges Inpatient E&M: 58223 Init Hosp L2 01/19/23 1401 <Electronically signed by Mone Riggs MD> Cosigner Signature (if applicable): CC: Dr. Mone Riggs MD; Dr. Ignacio Cheatham MD~ Signed [facility] Work Phone: 1(280) 241-919911-20-2023 History and physical note Author Mone Riggs [facility] January 19, 2023 2:01pm Note Date/Time January 19, 2023 1:51pm [facility] Medical Records Department [address] [place] [address] H&P Exam - Hospitalist 01/19/23 1343 MR#: [id number] Acct: [id number] Name: Margareth GONZALEZ Rep #:[id number] : 1965 57 From: Mone Riggs MD PCP: Dr. Ignacio Cheatham MD Status:ADM I N Location: [place] [address] HPI - General General Date of Admission: 01/19/23 Date of Service: 01/19/23 Chief Complaint: RLE pain HPI Narrative Margareth GONZALEZ, is a 57-year-old female with a history of COPD, type 2 diabetes mellitus, depression, hypertension, end-stage renal disease on dialysis Thursday,, Thursday, neuropathy, and obesity who presented to [facility] 01/19/2023 after a fall with right leg [...] she has no other new physical complaints. [facility] Medical History (Updated 01/19/23 @ 13:50 by [...] % (Auto) 59.5, Lymph % (Auto) 27.1, Camas % (Auto) 8.2, Eos % (Auto) 4.1, [...] Signed: Alejandro Blanchard MD at 8:24 EST Reading Location ID and State: / [place] , Service support , Foot X-Ray 01/19/23 08:00 IMPRESSION: Plantar [...] documentation, 60minutes Charges/Coding Visit Charges Inpatient E&M: 83072 Init Hosp L2 01/19/23 1401 <Electronically signed by Mone Riggs MD> Cosigner Signature (if applicable): CC: Dr. Mone Riggs MD; Dr. Ignacio Cheatham MD~ Signed [facility] Work Phone: 1(124) 572-690411-20-2023 Miscellaneous Notes* Telephone Encounter - Emmie Poe LPN - 01/19/2023 2:17 PM EST Pt calls to report they are admitting her to [facility]. Pt reports that she is going to need surgery on leg/knee. Pt cancelled appt for with pcp as she will be unavailable. Emmie Poe LPN * Telephone Encounter - Claudette Cordero LPN - 01/15/2023 11:22 AM EST Pt's sister Halle Barragan is calling to let you know she is going to diaylsis and cherry picker operator pt to take her to [facility] ER for the 2nd time this week. Again pt is not able to walk and this time per sister pt issaying it is 3 times worse that it was earlier this week. Sister reports something is going to haveto be done. Pt has an apt on 01-21-23 for her 3 month follow up. Claudette Cordero LPN documented in this encounterC[facility]11-20-2023 Discharge summary Author Yariel Wilks [facility] January 19, 2023 4:10pm Note Date/Time January 19, 2023 7:28am [facility] Medical Records Department [address] [place] [address] Emergency Department Summary 01/19/23 MR#: [id number] Acct: [id number] Name: Margareth GONZALEZ Rep #:[id number] : 1965 57 From: Yariel Wilks DO PCP: Dr. Ignacio Cheatham MD Status:ADM I N Location: [place] [address] HPI History of Present Illness Chief Complaint: [...] pain and she states nobody found anything. [facility] Medical History (Updated 01/19/23 @ 13:50 by [...] % (Auto) 59.5 Lymph % (Auto) 27.1 Camas % (Auto) 8.2 Eos % (Auto) 4.1 [...] your Primary Care Provider. Call [facility] ([phone]) or report to the closest Emergency Room. Call 911 if necessary. 01/19/23 1610 <Electronically signed by Yariel Wilks DO> Cosigner Signature (if applicable): CC: Dr. Ignacio Cheatham MD ~ Signed [facility] Work Phone: 1(268) 433-165311-16-2023 Miscellaneous Notes* Telephone Encounter - Efra Box [...] be dropping off her short term and intermediate project manager disability forms today. States that the short term forms will as of 01/22. long term can be discussed further at upcoming appt if needed. documented in this encounterCleveland [facility]11-14-2023 Discharge summary Author Dakota Cobos [facility] January 13, 2023 2:20pm Note Date/Time January 13, 2023 12:22pm [facility] Medical Records Department [address] [place] [address] Emergency Department Summary 01/13/23 MR#: [id number] Acct: [id number] Name: Margareth GONZALEZ Rep #:[id number] : 1965 57 From: Dakota Cobos [...] tibia stress fracture back in mid September. [facility] Medical History Anxiety and depression Benign essential [...] she thinks he comes down here in [facility] also. I recommend she call him tofor [...] dialysis. She states she talk to her hazardous substances scientist who said she is allowed to have [...] your Primary Care Provider. Call [facility] ([phone]) or report to the closest Emergency Room. Call 911 if necessary. 01/13/23 1420 <Electronically signed by Dakota Cobos MD> Cosigner Signature (if applicable): CC: Dr. Ignacio Cheatham MD ~ Signed [facility] Work Phone: 1(402) 214-870010-16-2023 History of Present illness Narrative* Reagan Riggs MD - 12/15/2022 3:33 PM EDT Reagan Riggs MD Department of Orthopaedics Orthopaedics [address] [place] [address] Dept: [phone] Dept December 15, 2022 CHIEF COMPLAINT: Follow [...] she wishes to get in with [facility]. He can continue slow and steady activity [...] the knee. Imaging: IMPRESSION: Healing tibia fracture. Archival Records Clerk: PSCB Transcribe Date/Time: Dec 18 2022 7:46A [...] mg by mouth. flash glucose scanning reader (Ecloud ([employer] Information and TechnologySTYLE FESTUS 2 READER) Use to check glucose [...] every 6 hours as needed for pain. Zlbnovfo-Tq-Wfk-Fe-FA ( VITAMIN) ORAL Tab Take 1 tablet [...] anxiety) Reagan Riggs MD documented in this [facility]09-28-2023 Miscellaneous Notes* Telephone Encounter - Sarah Zaman Ma - 11/27/2022 4:43 PM EDT Form completed and faxed to [facility]. Confirmation received. Copy sent for scanning. * Telephone Encounter - Sarah Zaman Ma - 11/24/2022 3:40 PM EDT Type of form: Short-term Disability Form received via fax When form is completed, Fax form to [facility] at [phone]. Form has been forwarded to Nurse box for completion. Sarah Zaman Ma documented in this [facility]09-25-2023 Miscellaneous Notes* Telephone Encounter - Karla Bush MA - 11/24/2022 2:11 PM EDT See telephone encounter. Karla Bush MA * Telephone Encounter - Ameena Dumont RN - 11/24/2022 12:32 PM EDT x documented in this [facility]09-21-2023 Miscellaneous Notes* Telephone Encounter - Mackenzie Zamora APRN.BLOCK PAVER - 11/20/2022 6:00 PM EDT Please notify patient that urine culture showed mixture of bacteria which suggests possible contamination upon collection. Advise her to hold the antibiotic and repeat the culture, order placed in chart. Will return to lab tomorrow for repeat culture Mackenzie Zamora APRN.BLOCK PAVER documented in this encounterCleveland Clinic [facility]09-20-2023 History of Present illness Narrative* Kimberli Saleem APRN.CNP - 11/19/2022 11:44 AM EDT This note was created using Nan[employer] Semiconductorriter. Subjective Margareth Gonzalez is a 57 year [...] history is provided by the patient. No j2ee android developer was used. UTI This is a new [...] (6) Esophagitis ESRD (end stage renal disease) ([facility]) 07/03/2022 Facial fracture due to fall ([facility]) Fatigue Fibromyalgia Fracture Fracture of shaft of fibula GERD (gastroesophageal reflux disease) HLD (hyperlipidemia) on tricor Hyperlipidemia Hypertension Hypomagnesemia Hypopotassemia IBS (irritable bowel syndrome) Insomnia Intertrigo Knee pain Morbid obesity ([facility]) 03/11/2011 Myalgia Nausea Neck pain [...] Take 1 tablet by mouth once daily. Lzkdzkjf-Ni-Xiw-Fe-FA ( VITAMIN) ORAL Tab Take 1 tablet [...] - CEPHALEXIN 250 MG CAPSULE Kimberli Saleem APRN.BLOCK PAVER documented in this encounterCleveland Clinic [facility]09-18-2023 Miscellaneous Notes* Telephone Encounter - Ignacio Cheatham [...] Ferrous Sulfate *Omeprazole with taking Vitamin. Claudette Codrero LPN documented in this encounterCleveland Clinic [facility]09-15-2023 Miscellaneous Notes* Telephone Encounter - Georgina Salmon [...] with update. Thank you. documented in this encounterCleveland Clinic [facility]09-11-2023 Miscellaneous Notes* Telephone Encounter - Elenita Macario LPN - 11/10/2022 4:50 PM EDT Phoned patient and reviewed message with her. Patient voiced understanding. * Telephone Encounter - Brooke Manning APRN.CNP - 11/10/2022 4:37 PM EDT Let patient know Dr. Cheatham recommend checking with her hazardous substances scientist first to see if Cymbalta can be used. Lyrica increases risk for falls and sedation. Brooke Manning APRN.CNP documented in this encounterCleveland Clinic [facility]09-11-2023 History of Present illness Narrative* Reagan Riggs MD - 11/10/2022 1:57 PM EDT Reagan Riggs MD Department of Orthopaedics Orthopaedics [address] [place] [address] Dept: [phone] Dept November 10, 2022 CHIEF COMPLAINT: Established Patient of the Right Knee (Right knee pain - CT scan (09/12/2022), US (10/15/2022) and xray from [facility]) HPI Patient presents with: Right Knee - Established Patient: Right knee pain - CT scan (09/12/2022), US (10/15/2022) and xray from [facility] Patient in today for right knee pain. States it has been going on for some time but got worse 2 weeks ago. Went to [facility] ED and was told to see an [...] proximal tibial diaphysis.. Findings suggesting Achilles tendinosis. Archival Records Clerk: SHAMAR Transcribe Date/Time: Nov 13 2022 10:44A [...] Chronic kidney disease Contraceptive management Depression Diabetes ([facility]) Diarrhea DVT, lower extremity ([facility]) 08/2014 Right leg (6) Esophagitis ESRD (end stage renal disease) ([facility]) 07/03/2022 Facial fracture due to fall ([facility]) Fatigue Fibromyalgia Fracture Fracture of shaft of fibula GERD (gastroesophageal reflux disease) HLD (hyperlipidemia) on tricor Hyperlipidemia Hypertension Hypomagnesemia Hypopotassemia IBS (irritable bowel syndrome) Insomnia Intertrigo Knee pain Morbid obesity ([facility]) 03/11/2011 Myalgia Nausea Neck pain [...] Take 1 tablet by mouth once daily. Aaigsxuc-Ir-Sqh-Fe-FA ( VITAMIN) ORAL Tab Take 1 tablet [...] physician via US mail. Ignacio Cheatham [address] [facility] [address] Ignacio Cheatham MD [address] [facility] [address] Reagan Riggs MD documented in this encounterCleveland Clinic [facility]09-08-2023 History of Present illness Narrative* Brooke Manning APRN.BLOCK PAVER - 11/07/2022 12:28 PM EDT 11/07/2022 Patient presents with: ER F/U: [facility] 10/30 for bilateral hand pain SUBJECTIVE: This is a 57 year old that is here today for Above Complaints. HOSPITAL/ER FOLLOW UP: Reason for visit: bilateral hand pain ( per ER record chest pain and right leg swelling) Which facility: [facility] Date of visit: 10/30/2022 Diagnosis: neuropathy Testing [...] Chronic kidney disease Contraceptive management Depression Diabetes ([facility]) Diarrhea DVT, lower extremity ([facility]) 08/2014 Right leg (6) Esophagitis ESRD (end stage renal disease) ([facility]) 07/03/2022 Facial fracture due to fall ([facility]) Fatigue Fibromyalgia Fracture Fracture of shaft of fibula GERD (gastroesophageal reflux disease) HLD (hyperlipidemia) on tricor Hyperlipidemia Hypertension Hypomagnesemia Hypopotassemia IBS (irritable bowel syndrome) Insomnia Intertrigo Knee pain Morbid obesity ([facility]) 03/11/2011 Myalgia Nausea Neck pain [...] daily at bedtime. flash glucose scanning reader (Ecloud ([employer]) Information and TechnologySTYLE FESTUS 2 READER) Use to check glucose [...] Take 1 tablet by mouth once daily. Lkfupbma-Jt-Svl-Fe-FA ( VITAMIN) ORAL Tab Take 1 tablet [...] kidney a function - she can ask hazardous substances scientist about Cymbalta as it looks like this [...] which included preparing to see the patient, [id number] patient care, completing clinical documentation, obtaining and/or reviewing separately obtained history, performing a medically appropriate examination, counseling and educating the pat ient/family/caregiver, and ordering medications, tests, or procedures. documented in this encounterCleveland [facility]09-05-2023 Miscellaneous Notes* Telephone Encounter - Sury Corral [...] into assist living facilities. documented in this encounterCleveland Clinic [facility]08-21-2023 History of Present illness Narrative* Ignacio Cheatham MD - 10/20/2022 1:56 PM EDT Patient presents with: Hospital F/U HPI: Patient presents today for office visit for hospital follow up. Hospital/[facility] Discharge follow up. Dialysis on , , Sat. Admitted to 09/10 for severe pain in right leg. Work up included ct of spine and leg and MRI of the spine. Had ddd of spine/spinal stenosis. Admitted from there to [facility] That pain is better. No numbness or weakness with bowel or bladder. [facility] ER 10/15/22 stress fracture of the proximal tibia. Was recommended to have MRI. Xray showed ? Tibial stress fracture, however, ortho manager inventory control was not convinced. Suggested non weight bearing and advised to follow up with ortho for possible mri. She would like to see [facility] ortho instead. This pain is different. Started after doing therapy prior to discharge. Vina something snap in her leg. Xrays done at [facility] were negative. Did have bruising as well. Pain is less severe. In [facility] she was placed on eliquis. They had thought she might have a superficial phlebitis on 09/09.She has had duplexes both of which were negative, one at [facility] and one in ER. She has [...] Take 1 tablet by mouth once daily. Izkplcpv-Nn-Bew-Fe-FA ( VITAMIN) ORAL Tab Take 1 tablet [...] Chronic kidney disease Contraceptive management Depression Diabetes ([facility]) Diarrhea DVT, lower extremity ([facility]) 08/2014 Right leg (6) Esophagitis ESRD (end stage renal disease) ([facility]) 07/03/2022 Facial fracture due to fall ([facility]) Fatigue Fibromyalgia Fracture Fracture of shaft of fibula GERD (gastroesophageal reflux disease) HLD (hyperlipidemia) on tricor Hyperlipidemia Hypertension Hypomagnesemia Hypopotassemia IBS (irritable bowel syndrome) Insomnia Intertrigo Knee pain Morbid obesity ([facility]) 03/11/2011 Myalgia Nausea Neck pain [...] andsocial history today. REVIEW OF SYSTEMS Request [employer] alert for her home. All other reviewed [...] TABLET Ignacio Cheatham MD documented in this encounterCleveland Clinic [facility]08-17-2023 Miscellaneous Notes* Telephone Encounter - Chloe Carpenter [...] Her most recent med list would be [facility] correct? We have not seen her. [...] list be faxed to them for clarification FAX:[phone]. [facility] [...] stepped down wrong when she was at [facility] during therapy. An x-ray was done not showing and fractures. Last night pt went to [facility] ER right leg pain and pt has [...] would like this to be done at [facility] and ordered by Dr. Cheatham.(Spoke with pt to see where she wanted this done). Please order for pt. Please advise Leda. Claudette Cordero LPN documented in this encounterCleveland Clinic [facility]08-10-2023 Miscellaneous Notes* Telephone Encounter - Sury Corral LPN - 10/09/2022 12:36 PM EDT Intake nurse Audra notified. * Telephone Encounter - Ignacio Cheatham MD - 10/09/2022 12:25 PM EDT Ok to do * Telephone Encounter - Georgina Salmon RN - 10/09/2022 11:32 AM EDT Karly Graff calling from [facility] and states they received a PT referral for patient from [facility]. Patient discharged from [facility] on 10/08. Asking if may have verbal order from provider for Physical Therapy? Please call Intake Nurse Audra with reply at [phone]. Thank you. documented in this encounterCleveland Clinic [facility]08-01-2023 Miscellaneous Notes* Telephone Encounter - Karly Wells RN - 09/30/2022 10:53 AM EDT Left detailed VM for DINO Kelly at [facility]. I advised her that I called the patient last Sep. With no return call back. Patient needed to see a dentist and get a knee replacement before moving forward with he testing for kidney transplant evaluation. Direct desk number provided for return call. * Telephone Encounter - Jenni León - 09/29/2022 4:36 PM EDT Dialysis records received and scanned into [employer]. Call patient's hospital social worker, as she just started dialysis, and advise regarding kidney transplant evaluation status, phone number is [phone]. documented in this encounterCleveland Clinic [facility]07-20-2023 Miscellaneous Notes* Telephone Encounter - Makenna Mullins - 09/18/2022 10:58 AM EDT Cancelled injections and labs in conjunction with injection. Makenna * Telephone Encounter - Veronica Atkinson LPN - 09/18/2022 10:06 AM EDT Preivous phone notes show pt will be starting dialysis at [facility], if so, pt will not need to continue her Retacrit injections here. TC to [facility] Hospital to confirm this. She is not cleared to start after she is cleared by Vascular. Facilities Project Manager at [facility] states pt is at [facility], she would receive dialysis there at [facility]. Spoke to Lion in that dialysis unit, he says pt has a f/u with vascular on 09/23, then if cleared will start dialysis.She saw Dr Spencer once 12/18/21. Dialysis will cover her with injections. Cancel her injections. documented in this encounterCleveland Clinic [facility]07-18-2023 Miscellaneous Notes* Telephone Encounter - Kaylin Carranza [...] Disease Management Disposition: Involved in community agencies: [facility]/[place] [phone] & [facility]/[place] Care Team Tab - End: YES Kaylin Carranza RN * Telephone Encounter - Kaylin Carranza RN - 09/16/2022 10:44 AM EDT ----- Message from Sonia Tavares sent at 09/16/2022 10:17 AM EDT ----- Regarding: RE: Pt Update Hi All, [facility] actually has [facility] onsite and their medical assistant cardiology is the same at [facility]. I spoke with GRACE Seymour in the dialysis den and he said they will 'transfer' her to [facility] when she is ready to discharge from [facility]. We will also remove her from our list. Thanks, Sonia ----- Message ----- From: Kaylin Carranza RN Sent: 09/16/2022 10:15 AM EDT To: Efe Villavicencio; Sonia Tavares; Goldy Hunter DO; # Subject: RE: Pt Update Hi all I did an update on Care Everywhere & saw that pt was discharged from [facility] in [place] ([phone]). Her diagnosis was debility - inabilityto care [...] patent. They are working with their own Bevel Operator & plan to start her on dialysis on 09/23/22 there. Dora said the plan is for in-house dialysis. With this being said, I stated, so she won't be needing to keep her chair time that we set up for her at [facility]? Dora confirmed this is not needed. So, go ahead & cancel herso someone else who needs it can get it. I will be removing Arnold from my panel since she is following with another Bevel Operator & her needs are being met at this time. Kaylin Carranza RN ----- Message ----- From: Sonia Tavares Sent: 09/12/2022 1:35 PM EDT To: Efe Villavicencio; Kaylin Carranza RN; Goldy Hunter DO; # Subject: RE: Pt Update Ak zoila, Efe spoke with Arnold today and Arnold told her she is in hospital and going to a group home. Sheis not sure where, but doesn't know if she will make her vascular appointment on 09/23. We also haveno idea if she started dialysis in the hospital. We think it's [facility]. Not surewhat you would want us to do about this. If she is truly going to a MI they should communicate w/ [facility]. Sonia Leyva ----- Message ----- From: Efe Villavicencio Sent: 09/11/2022 10:56 AM EDT To: Sonia Tavares; Kaylin Carranza RN; # Subject: Pt Update Ak, Just wanted to check before contacting pt, was she admitted to [facility]? Efe Leyva documented in this encounterCleveland Clinic Hillcre[facility]07-18-2023 Miscellaneous Notes* Telephone Encounter - Efe Villavicencio - 09/16/2022 10:41 AM EDT DIALYSIS PLACEMENT NOTE Planned for pt to start dialysis at [facility] but pt was admitted to [facility] before she could start. Pt will start dialysis onsite at care facility and transfer to [facility] when ready for discharge. Facility: [facility] ([address], [place] [address]) Bevel Operator: Dr. Hill Signature: Efe Villavicencio Patient Name: Margareth Gonzalez Date: September 16, 2022 Time: 10:41 AM documented in this encounterCleveland Clinic Hillcrest Hospital07-14-2023 Consult note Author Karla Terry [facility] September 12, 2022 12:31pm Note Date/Time September 12, 2022 12:3 1pm [facility] Medical Records Department [address] [place] [address] Counseling Note - Pharmacy 09/12/22 1231 MR#: [id number] Acct: [id number] Name: Margareth GONZALEZ Rep #:[id number] : 1965 57 From: Karla Terry PCP: Dr. Ignacio Cheatham MD Status:ADM I NO Y [facility] Service has performed discharge medication reconciliation for this patient upon transfer to . The patient's discharge medication list was reviewed [...] Signature (if applicable): Date CC: ~ Signed [facility] Work Phone: 1(903) 645-565707-14-2023 Discharge summary Author Sylvester Ortiz [facility] September 12, 2022 11:46am Note Date/Time September 12, 2022 11:4 6am [facility] Medical Records Department [address] [place] [address] Discharge Summary 09/12/22 1143 MR#: [id number] Acct: [id number] Name: Margareth GONZALEZ Rep #:[id number] 2 : 1965 57 From: Sylvester Ortiz DO PCP: Dr. Ignacio Cheatham MD Status:ADM I NO Location: [facility] TI548-0 Providers Date of Admission: 09/10/22 Primary Care [...] repeat in a.m. if able, follows with [facility] nephrology. * Chronic COPD/asthma: From current list [...] Heparin. CODE status: Full code. Disposition: to [facility] Medications at Discharge Home Medications cholecalciferol [...] Additional Instructions / Restrictions: [facility]. Discharge Orders/Prescriptions Prescriptions: New acetaminophen 325 [...] in before D/C Order can be placed): [facility] Charges/Coding Visit Charges Inpatient E&M: 54605 Disch Hosp >30min 09/12/22 1146 <Electronically signed by Sylvester Ortiz DO> Cosigner Signature (if applicable): CC: Dr. Sylvester Ortiz DO; Dr. Ignacio Cheatham MD~ Signed [facility] Work Phone: 1([phone]) 883-188607-14-2023 Progress note Author Sylvester Ortiz [facility] September 12, 2022 9:15am Note Date/Time September 12, 2022 7:53 am [facility] Medical Records Department [address] [place] [address] Progress Note - Hospitalist 09/12/22 0752 MR#: [id number] Acct: [id number] Name: Margareth GONZALEZ ARNOLD Rep #:[id number] : 1965 57 From: Sylvester Ortiz DO PCP: Dr. Ignacio Cheatham MD Status:ADM I NO Location: [place] [id number] Reason for Visit Reason for Visit: Diagnoses [...] repeat in a.m. if able, follows with [facility] nephrology. * Chronic COPD/asthma: From current list [...] Heparin. CODE status: Full code. Disposition: to [facility] pending CT Charges/Coding Visit Charges Inpatient E&M: 40985 Subs Hosp L1 09/12/22 0915 <Electronically signed by Sylvester Ortiz DO> Cosigner Signature (if applicable): CC: ~ Signed [facility] Work Phone: 1(847) 861-269807-13-2023 Discharge summary Author Sylvester [facility] September 11, 2022 10:45am Note Date/Time September 11, 2022 10:3 9am [facility] Medical Records Department [address] [place] [address] Transfer to [facility] MR#: [id number] Acct: [id number] Name: Margareth GONZALEZ ARNOLD Rep #:[id number] : 1965 57 From: Sylvester Ortiz DO PCP: Dr. Ignacio Cheatham MD Status:ADM I NO Certification of patient admission REQUIRED AT TIME OF ADMISSION. I CERTIFY THAT POST-HOSPITAL ECF SERVICES ARE REQUIRED TO BE GIVEN ON AN IN-PATIENT BASIS BECAUSE OF THE ABOVE NAMED PATIENT'S NEED FOR SNF CARE ON A CONTINUING BASIS FOR THE CONDITION(S) FOR WHICH HE/SHE WAS RECEIVING IN-PATIENT HOSPITAL SERVICES PRIOR TO HIS/HER TRANSFER TO THE [facility]. 09/11/22 1045<Electronically signed by Sylvester Ortiz DO> [...] repeat in a.m. if able, follows with [facility] nephrology. * Chronic COPD/asthma: From current list [...] Heparin. CODE status: Full code. Disposition: to [facility] pending insurance authorization. Allergies/Procedures Done in [...] Additional Instructions / Restrictions: [facility]. Discharge Orders/Prescriptions Prescriptions: New acetaminophen 325 [...] in before D/C Order can be placed): [facility] 09/11/22 1045 <Electronically signed by Sylvester Ortiz DO> Cosigner Signature (if applicable): CC: Dr. Lizzy Bragg MD; Dr. Ignacio Cheatham MD ~ [facility] Work Phone: 1(377) 108-361407-13-2023 Progress note Author Sylvester [facility] September 11, 2022 10:37am Note Date/Time September 11, 2022 8:45 am [facility] Medical Records Department [address] [place] [address] Progress Note - Hospitalist 09/11/22 0842 MR#: [id number] Acct: [id number] Name: Margareth GONZALEZ ARNOLD Rep #:[id number] : 1965 57 From: Sylvester Ortiz DO PCP: Dr. Ignacio Cheatham MD Status:ADM I NO [address]: [address] Reason for Visit Reason for Visit: [...] repeat in a.m. if able, follows with [facility] nephrology. * Chronic COPD/asthma: From current list [...] Heparin. CODE status: Full code. Disposition: to [facility] pending insurance authorization. Charges/Coding Visit Charges Inpatient E&M: 29669 Subs Hosp L1 09/11/22 1037 <Electronically signed by Sylvester Ortiz DO> Cosigner Signature (if applicable): CC: ~ Signed [facility] Work Phone: 1([phone]) 922-509307-13-2023 Miscellaneous Notes* Telephone Encounter - Ana Foley [...] during business hours: Did you contact your [facility]/Provider? No FOLLOW UP: Patient started on Eliquis and has follow up scheduled with vascular 09/23/22 Ana Foley RN documented in this encounterCleveland Clinic [facility]07-12-2023 Progress note Author Sylvester Ortiz [facility] September 10, 2022 1:59pm Note Date/Time September 10, 2022 8:05 am [facility] Medical Records Department [address] [place] [address] Progress Note - Hospitalist 09/10/22 0757 MR#: [id number] Acct: [id number] Name: Margareth GONZALEZ Rep #:[id number] : 1965 57 From: Sylvester Ortiz DO PCP: Dr. Ignacio Cheatham MD Status:ADM I NO Location: [place] [address] Reason for Visit Reason for Visit: Diagnoses [...] % (Auto) 62.0, Lymph % (Auto) 25.2, Cam[place] % (Auto) 8.6, Eos % (Auto) 3.1, [...] % (Auto) 66.3, Lymph % (Auto) 22.2, [place]% (Auto) 8.3, Eos % (Auto) 2.3, Baso [...] repeat in a.m. if able, follows with [facility] nephrology. * Chronic COPD/asthma: From current list [...] Full code. Charges/Coding Visit Charges Inpatient E&M: 80985 Subs Hosp L2 09/10/22 2039 <Electronically signed by Sylvester Ortiz DO> Cosigner Signature (if applicable): CC: ~ Signed [facility] Work Phone: 1(761) 974-743607-12-2023 Miscellaneous Notes* Telephone Encounter - Fab Cochran APRN.BLOCK PAVER - 09/10/2022 11:15 AM EDT Called Bernie [...] Villalobos - 09/10/2022 11:10 AM EDT [facility] hosp phoned req ok for line placement slot at 12:30 Call [phone] Bernie Cochran Paged documented in this encounterCleveland Clinic Hill[facility]07-12-2023 Miscellaneous Notes* Telephone Encounter - Mago Nicholas - 09/10/2022 10:37 AM EDT Sent [employer] message to schedule follow up * Telephone [...] advise. La Adler MA documented in this encounterCleveland Clinic [facility]07-12-2023 Discharge summary Author Minh Arroyo [facility] September 10, 2022 3:48am Note Date/Time September 10, 2022 3:07 am [facility] Medical Records Department [address] [place] [address] Emergency Department Summary 09/10/22 MR#: [id number] Acct: [id number] Name: Margareth GONZALEZ Rep #:[id number] : 1965 57 From: Minh Arroyo DO PCP: Dr. Ignacio Cheatham MD Status:ADM I NO Location: [facility] UE743-7 HPI History of Present Illness Chief Complaint: [...] to the ERfor potential admission and even group home placement based on her worsening pain and inability to care for self. Patient does states she had x-rays of her right knee which revealed no acute findings and an ultrasound of her right leg which revealed superficial venous thrombus but no deep vein thrombosis [facility] Medical History (Updated 09/10/22 @ 03:[address] Minh Arroyo DO) Anxiety and depression Bipolar disorder Chronic [...] % (Auto) 62.0 Lymph % (Auto) 25.2 [place] % (Auto) 8.6 Eos % (Auto) 3.1 [...] 15-29 ml/min) Disposition Disposition: Acute Care Hospital [facility] What to do if you have Problems For any increased pain, shortness of breath, bleeding, nausea or vomiting, chestpain, or any unexpected problems, contact your Primary Care Provider. Call [facility] ([phone]) or report to the closest Emergency Room. Call 911 if necessary. 09/10/22 0348 <Electronically signed by Minh Arroyo DO> Cosigner Signature (if applicable): CC: Dr. Ignacio Cheatham MD ~ Signed [facility] Work Phone: [phone]) 219-267407-12-2023 History and physical note Author Lizzy [facility] September 10, 2022 2:13am Note Date/Time September 10, 2022 12:4 5am [facility] Medical Records Department [address] [place] [address] H&P Exam - Hospitalist 09/10/22 0043 MR#: [id number] Acct: [id number] Name: Margareth GONZALEZ Rep #:[id number] : 1965 57 From: Lizzy Bragg [...] recent AVF graft infection with hospitalization at [place] with surgery and abx therapy following with [facility] nephrology, Diabetes mellitus type II w/ chronic neuropathy, Fibromyalgia, HTN, HLD, Chronic normocytic anemia who presents to the [facility] EDon 09/10/22 with history of ongoing right-sided [...] issues with one of her AV grafts. [facility] Medical History (Updated 09/10/22 @ 02:09 by [...] recent AVF graft infection with hospitalization at [place] with surgery and abx therapy following with [facility] nephrology, Diabetes mellitus type II w/ chronic neuropathy, Fibromyalgia, HTN, HLD, Chronic normocytic anemia who presents to the [facility] ED on 09/10/22 with history of ongoing [...] repeat in a.m. if able, follows with [facility] nephrology. #4. Chronic COPD/asthma: From current list [...] Patient does not have healthcare power of insurance attorney or living will in place but [...] 60 minutes. Charges/Coding Visit Charges Inpatient E&M: 68168 Init Hosp L2 Procedures Hospitalists Procedures: 72195 Advncd Care Plan 30 Min 09/10/22 0213 <Electronically signed by Lizzy Bragg MD> Cosigner Signature (if applicable): CC: Dr. Lizzy Bragg MD; Dr. Ignacio Cheatham MD~ Signed [facility] Work Phone: 1([phone]) 109-721607-11-2023 History of Present illness Narrative* Ignacio Cheatham MD - 09/09/2022 4:11 PM EDT Patient presents with: ER F/U HPI: Patient presents today for office visit for ER follow up. Seen in [place] ER today. Right knee pain with swelling. [...] mouth once daily. flash glucose scanning reader ([employer] ([employer] and TechnologySTYLE FESTUS 2 READER) Use to check glucose [...] Take 1 tablet by mouth once daily. Rpvztkhv-Qh-Jig-Fe-FA ( VITAMIN) ORAL Tab Take 1 tablet [...] Chronic kidney disease Contraceptive management Depression Diabetes ([facility]) Diarrhea DVT, lower extremity ([facility]) 08/2014 Right leg (6) Esophagitis ESRD (end stage renal disease) ([facility]) 07/03/2022 Facial fracture due to fall ([facility]) Fatigue Fibromyalgia Fracture Fracture of shaft of fibula GERD (gastroesophageal reflux disease) HLD (hyperlipidemia) on tricor Hyperlipidemia Hypertension Hypomagnesemia Hypopotassemia IBS (irritable bowel syndrome) Insomnia Intertrigo Knee pain Morbid obesity ([facility]) 03/11/2011 Myalgia Nausea Neck pain [...] up to rule out occult fracture. To [place] ER. Er passport generated. 2. Superficial phlebitis of right leg - ICD9: 451.0, ICD10: I80.01 3. Type 2 diabetes, controlled, with neuropathy (HCC) - ICD9: 250.60, 357.2, ICD10: E11.40 4. Essential hypertension - ICD9: 401.9, ICD10: I10 Ignacio Cheatham MD documented in this encounterCleveland Clinic [facility]07-09-2023 Discharge summary Author Quentin Kim [facility] September 07, 2022 2:51pm Note Date/Time September 07, 2022 2:04p [facility] Medical Records Department [address] [place] [address] Emergency Department Summary 09/07/22 MR#: [id number] Acct: [id number] Name: Margareth GONZALEZ Rep #:[id number] : 1965 57 From: Quentin Disla [...] Denies chest pain or shortness of breath. [facility] <BREANNA Cleary - Last Filed: 09/07/22 14:46> [facility] Medical History Fibromyalgia Neuropathy Home Medications cholecalciferol [...] She was given an Hannah wrap and [place] for pain control and discharged in stable condition. Differential: Leg fracture, ligamentous or meniscal injury, arthritis, DVT, among others Attending note: Patient seen and evaluated with bologna maker. I perform my own ohnd-te-jzjo evaluation. I agree with the plan of [...] 14:36 EDT Reading Location ID and State: [facility] / [place] , Service support , ED attending interpretation of right knee x-ray shows no acute fracture or dislocation. <Dr. Quentin Kim, DO - Last Filed: 09/07/22 14:51> [facility] Narrative Medical decision making narrative: Patient [...] She was given an Hannah wrap and [place] for pain control and discharged in stable condition. Differential: Leg fracture, ligamentous or meniscal injury, arthritis, DVT, among others Attending note: Patient seen and evaluated with bologna maker. I perform my own qobr-xz-ggwt evaluation. I agree with the plan of [...] 14:36 EDT Reading Location ID and State: [facility] / [place] , Service support , Discharge Plan Triage [...] DAILY Elavil 1 tab PO DAILY vit no.367-vrcb-rpovo [ Vitamin] 1 EACH tablet 1 ea PO DAILY insulin lispro 100 UNIT/ML solution 10 unit SQ DAILY Other Ambulatory Orders: Venous Duplex US, Unilateral (Stat) Facility: [facility] - Location: [facility] Ordered By: Efra Stallworth Primary Care Provider: [...] your Primary Care Provider. Call [facility] ([phone]) or report to the closest Emergency Room. Call 911 if necessary. 09/07/22 1451 <Electronically signed by Quentin Disla> Cosigner Signature (if applicable): 09/07/22 1446 <Electronically signed by Efra Stallworth PA> CC: Dr. Ignacio Cheatham MD ~ Signed [facility] Work Phone: 1(231) 926-378007-05-2023 History of Present illness Narrative* Kaylin Carranza [...] office if your blood pressure is less prap084/70 or higher than 150/90 -Recommend HgbA1c of [...] We discussed importance of keeping this appt. resident care coordinator contacted: yes: Has been placed @ [facility] in [place] Remote Hepatitis panel obtained: yes, 08/26/22 Chest x-ray obtained: yes: 08/26/22 Med reconciliation completed: No Medication prior authorizations: Not applicable Reviewed symptoms of uremia - none other than chronic fatigue, nausea & some wt loss. States nochanges. [facility] plan for next outreach: Will follow up prn. Kaylin Carranza RN September 03, 2022 11:00 AM documented in this encounterCleveland Clinic Hillcrest Hospital06-28-2023 Miscellaneous Notes* Telephone Encounter - Kaylin Carranza [...] EDT To: Goldy Hunter DO, Fab Cochran APRN.BLOCK PAVER Subject: AVF I saw you both made a billing encounter for Arnold yesterday. Sonia Tavares set up placement for her @ a dialysis unit in [place], close to her home but has notyet informed Arnold because she was waiting for Vascular to confirm the AVF is ready for use. I don'tsee any notes from her Vascular appt yesterday. I'm not sure she kept her appt. Do either of you know her status with this? Kaylin documented in this encounterCleveland Clinic Hillcre[facility] Hospital06-22-2023 History of Present illness Narrative* Jenni Cates [...] 21, 2022 11:15 AM documented in this encounterCleveland Clinic Hillcrest Hospital06-22-2023 Nurse Note* Veronica Atkinson LPN - 08/21/2022 11:04 AM EDT Retacrit injection deferred. Pt did not meet treatment parameters. Hgb 10.2 Veronica Atkinson LPN documented in this encounterCleveland Clinic Hillcrest Hospital06-21-2023 Miscellaneous Notes* Telephone Encounter - Kaylin Carranza RN - 08/20/2022 3:18 PM EDT Sonia Carranza RN; Efe Villaviecncio Sounds good! Efe spoke with her. We are going to get a referral sent through [facility] admissions [facility]. ThanksSonia * Telephone Encounter - Kaylin Carranza RN - 08/20/2022 2:51 PM EDT Pt returned my call. Informed her of need to have Hep B panel & cxr completed. States that she plans to have other labs drawn tomorrow as well so she will do both then. Encouraged to call [facility] to schedule cxr but pt states she [...] addressed. Kaylin Carranza RN documented in this encounterCleveland Clinic Hillcrest Hospital06-06-2023 History of Present illness Narrative* Kaylin Carranza RN - 08/05/2022 11:54 AM EDT Patient Identified by name and : Yes Spoke to patient OTP Renal Anemia HGB <10.0 g/dl: Yes, follow decision tree below. History of Cancer, DVT, or Stroke: No, Anemia referral: Yes - following with [facility]/Onc - [place]. OTP TRANSPLANT EVALUATION Patient interested in Ktx?: [...] Discussed with Provider timing of initiation: Yes resident care coordinator contacted: Yes resident care coordinator initiated placement process: No Remote Hepatitis [...] applicable Vaccination status: completed Referral placement: Yes [facility] plan for next outreach: Will follow up [...] AVF site. Concerns: None at this time. [facility] plan for next outreach: Will follow up prn. Signature Kaylin Carranza RN August 05, 2022 documented in this encounterCleveland Clinic Hillcrest Hospital06-06-2023 Miscellaneous Notes* Telephone Encounter - Kaylin Carranza [...] to be [facility] [place]. Please let me know. Thanks, Kaylin. documented in this encounterCleveland Clinic Hillcrest Hospital06-06-2023 History of Present illness Narrative* Chrissy Cheng RN - 08/05/2022 10:17 AM EDT TCM Home Visit Referral Source of Stratification: [facility] Hospital Admission Status: Discharged Readmission Risk Score: 33 DEANDRA Score: 17 Patient meets program referral criteria: No Patient does not qualify for High Risk TCM Home Visit program due to: Discharged home, does not meet program criteria TRANSITIONAL CARE MANAGEMENT (TCM) COMMUNITY MONITORING PROGRAM Provider Action/FYI: Left arm incision HAIR ASSISTANT Mild edema to incision site Denies pain [...] Network Status: In-Network Discharge Pt discharged from [facility] on 08/04/2022. Admitted for: surgical site infection left arm Contact made with patient: Yes Hi my name is Chrissy Cheng RN and I am calling from the [facility] on behalf of your PCP, Ignacio Cheatham [...] like to speak with a social work [employer] sales and lending team member to help give you support for any [...] I will send your request to a crew scheduler who will contact and assist you [...] MONIKA Education Ordered -: No Hazel BRAUN., fork assembler Pallet Rectifier [phone] documented in this encounterCleveland Clinic Hillcrest Hospital06-06-2023 History of Present illness Narrative* Lauren Bello [facility] - 08/05/2022 7:44 AM EDT TRANSITION CARE MANAGEMENT (TCM) PHARMACY CONTACT Provider Action/FYI: Unable to reach patient after unsuccessful outreach attempt. Left voicemail for patient including call back number to TCM pharmacist. TCM medication reconciliation incomplete at this time Patient unable to be reached after unsuccessful outreach attempt(s). No further attempts to contactpatient will be made. SUMMARY: -Pt discharged from [facility] on 08/04/22. -Medication review not done [...] Active Problems: Anemia, unspecified Bipolar disorder, unspecified ([facility]) Essential hypertension Type 2 diabetes mellitus with stage 4 chronic kidney disease, without long-term current use of insulin ([facility]) GERD (gastroesophageal reflux disease) Type 2 diabetes, controlled, with neuropathy ([facility]) ESRD (end stage renal disease) ([facility]) Resolved Problems: Acute gastritis OPERATIONS [...] days. Confirmed fills on medication dispense history. [facility] [address] [place] [phone] [facility] [phone] cephALEXin hydrOXYzine HCl sulfamethoxazole-trimethoprim cholecalciferol (VITAMIN [...] no medication dispense history for this medication. Cozexykx-Fe-Ghf-Fe-FA ( VITAMIN) ORAL Tab Take 1 tablet [...] fills on medication dispense history. Preferred pharmacy: [address] [phone] [facility] [phone] [place] [address] [facility] [id number] [place] [phone] Estimated Creatinine Clearance: 16.5 mL/min (A) (based on SCr of 4.79 mg/dL (H)). Estimated Glomerular Filtration Rate (mL/min/1.73m ) Date Value 08/04/2022 10 (L) eGFR- (no units) Date Value 03/27/2021 20 Additional follow up: Next 5 Appointments Date and Time Provider Department Dept Phone 08/08/2022 2:15 PM LAB [facility] MOB [facility] [phone] 08/08/2022 2:45 PM Injection Iam [facility] IAM [facility] [phone] 08/11/2022 8:40 AM Ignacio Cheatham FAMP [facility] WS [phone] 08/22/2022 2:15 PM LAB [facility] MOB [facility] [phone] 08/22/2022 2:45 PM Injection Iam [facility] [phone] Interventions Made: None Pharmacist Recommendations Made None Care Coordination: None at this time Time spent on patient: 15-30 minutes Tati HernandezD, [facility] Transitional Care Management August 05, 2022 2:53 PM documented in this encounterCleveland Clinic Hill[facility]06-01-2023 Miscellaneous Notes* Telephone Encounter - Marie Pete - 07/31/2022 3:08 PM EDT Spoke with patient, she is currently at [facility] waiting to be seen. She did not want to go to [facility] tomorrow, so she's going to stay at the ED and is scheduled to see [facility] on Thursday, 08/05. * Telephone Encounter - Marie Pete - 07/31/2022 10:39 AM EDT Patient left a message stating her arm is swollen and discolored and that was advised to be seen sooner by express care. Left patient a message to call us back to schedule an appointment today with Katrin or tomorrow withMarilia. documented in this encounterCleveland Clinic Hillcrest Hospital06-01-2023 History of Past illness Narrative* Problem Noted [...] of this encounter (statuses as of 04/04/2023) [facility] History of Past illness Narrative* Problem Noted [...] of this encounter (statuses as of 04/06/2023) [facility] History of Past illness Narrative* Problem Noted [...] of this encounter (statuses as of 04/14/2023) [facility] History of Past illness Narrative* Problem Noted [...] of this encounter (statuses as of 05/01/2023) [facility] History of Past illness Narrative* Problem Noted [...] of this encounter (statuses as of 05/17/2023) [facility] History of Past illness Narrative* Problem Noted [...] of this encounter (statuses as of 05/18/2023) [facility] History of Past illness Narrative* Problem Noted [...] Overview: [facility] Dr. Henderson Acute gastritis 12/16/2007 08/04/2022 Overview: EGD with minimal gastritis, negative H Pylori 12/07 documented as of this encounter (statuses as of 05/21/2023) [facility] History of Past illness Narrative* Problem Noted [...] of this encounter (statuses as of 06/11/2023) [facility] History of Present illness Narrative* Sha Ray APRN.BLOCK PAVER - 07/31/2022 10:11 AM EDT Nontoxic-appearing female [...] agrees with plan of care. Sha Ray APRN.BLOCK PAVER documented in this encounterCleveland Clinic Hillcrest Hospital05-25-2023 NoteHNO ID: [id number] Author: Audra Bell RN Service: ? Author Type: Registered Nurse Type: Nursing Progress Note Filed: 07/24/2022 12:03 PM Note Text: 1200 pt given written and verbal dc instructions. Pt verbalized understanding.[facility] [id number] NoteHNO ID: [id number] Author: Jose D Camargo APRN.CRNA Service: Anesthesiology Author Type: Nurse Deskidding Machine Operator Type: Anesthesia Procedure Notes Filed: 07/24/2022 8:43 AM Note Text: ANESTHESIOLOGY PROCEDURE NOTE Airway General Information Procedure Start Time/Medication Administration: 07/24/2022 8:19 AM Patient location during procedure: OR Patient identity confirmed: arm band, care [employer] sales and lending team member and patient Staffing Anesthesiologist: Rashid Grace MD VOICE DATA COMMUNICATIONS ENGINEER: Jose D Camargo APRN.VOICE DATA COMMUNICATIONS ENGINEER Performed by: CHARLA Indications and Patient Condition [...] intact post intubation. SIGNATURE: Jose D Camargo APRN.VOICE DATA COMMUNICATIONS ENGINEER PATIENT NAME: Margareth Gonzalez DATE: July 24, 2022 TIME: 8:41 AM CSN: [id number] History and physical note* Jess Oconnor APRN.BLOCK PAVER - 06/30/2022 3:39 PM EDT Images from the original note were not included. HISTORY AND PHYSICAL EXAMINATION SERVICE DATE: 06/30/2022 SERVICE TIME: 1:50 PM PRIMARY CARE PHYSICIAN: Ignacio Cheatham MD REASON FOR VISIT: Margareth Gonzalez is a 57 year old female who is scheduled for Procedure(s) with comments: CREATION FISTULA ARTERIOVENOUS EXTREMITY UPPER (Left) - NO BOILER PLANT WORKER NEEDED at the request of Dr. Jonathan [...] COVID-19 booster vaccine, age 12+ yr, bivalent (mSchool) 08/15/2020 Outside Immunization: COVID-19, mRNA, LNP-S, PF, [...] fevers. Neurological: No history of TIA's, stroke, BOOT TRIMMER tumor, impaired sensorium, hemiplegia, paraplegia orquadraplegia. No neurological symptoms or problems. Respiratory: +former smoker Positive for: obstructive sleep apnea and CPAP/BiPAP noncompliant. Negative for: asthma, COPD, pneumonia within 6 weeks, tobacco use and URI < 2 weeks. Cardiovascular: Positive for: anticoagulation therapy (ASA), DVT/PE, hyperlipidemia and hypertension Negative for: arrhythmia, atrial fibrillation, CAD, chest pain, CHF, congenital heart defect, recent UT, murmur/valvular heart disease, open heart surgery and valve surgery. GI: +gastric bypass Positive for: GERD (on rx) and nausea Negative for: abdominal pain, dysphagia, irritable bowel syndrome, inflammatory bowel disease, liver disease, pancreatitis, vomiting and ETOH >2 drinks/day. : Positive for: renal failure. Patient's renal failure is chronic. Negative for: nephrolithiasis and urinary tract infection. SAP GRC SECURITY: Negative for abnormal vaginal bleeding, abnormal vaginal [...] Chronic kidney disease Contraceptive management Depression Diabetes ([facility]) Diarrhea DVT, lower extremity ([facility]) 08/2014 Right leg (6) Esophagitis ESRD (end stage renal disease) ([facility]) 07/03/2022 Facial fracture due to fall ([facility]) Fatigue Fibromyalgia Fracture Fracture of shaft of fibula GERD (gastroesophageal reflux disease) HLD (hyperlipidemia) on tricor Hyperlipidemia Hypertension Hypomagnesemia Hypopotassemia IBS (irritable bowel syndrome) Insomnia Intertrigo Knee pain Morbid obesity ([facility]) 03/11/2011 Myalgia Nausea Neck pain [...] daily. Taking Yes flash glucose scanning reader (Ecloud (Nanjing) Information and TechnologySTYLE FESTUS 2 READER) Use to check glucose [...] 1 tablet by mouth once daily.Taking Yes Dfckpohh-Aq-Hwq-Fe-FA ( VITAMIN) ORAL Tab Take 1 tablet [...] 368 QTC Calculation (Bazett) 457 Calculated P Melvin 67 Calculated R Melvin 20 Calculated T Melvin 63 Impression NORMAL SINUS RHYTHM NORMAL ECG Confirmed by MODESTO GOODMAN M.D. ([id number]) on 08/21/2021 4:13:04 PM Recent Results (from the past 60511 hour(s)) ECHO Collection Time: 08/15/21 3:12 PM [...] the daytime Non-male patient STOP-Bang Score: 6 [id number] Score: Age: <65 Sex: female CHF history: No Hypertension history: Yes Stroke/TIA/thromboembolism history: Yes Vascular disease history: No Diabetes history: Yes [id number] Score: 5 ARISCAT Score: Age: 51-80 Preoperative [...] and consent discussed: yes. Patient / Responsible Constitution Party agrees to proceed: yes Patient / Surrogate [...] 3:39 PM PAGER/CONTACT #: documented in this encounterCleveland Clinic Hillcrest Hospital05-01-2023 Instructions* Patient Instructions* Jess Oconnor APRN.CNP - 06/30/2022 3:39 PM EDT PATIENT PREOPERATIVE INSTRUCTIONS Jonathan Valenzuela* has scheduled you for your [facility] at [facility]: [phone] --[address] [address]. Please check in on the1st floor at [...] Procedures: - YOU MUST HAVE A RESPONSIBLE PROGRAMMING MANAGER TAKE YOU HOME. A PAINT ROLLER WINDER OR LINE ASSEMBLER AIRCRAFT CANNOT BE MADE A RESPONSIBLE PROGRAMMING MANAGER. - We recommend that a responsible person [...] Advance Directive, please fax a copy to [phone] or email to for it to be [...] day. Jess Oconnor APRN.NOY documented in this encounterCleveland Clinic Hillcrest Hospital04-26-2023 Miscellaneous Notes* Telephone Encounter - Nivia Fuentes Adm - 06/25/2022 1:37 PM EDT Patient phones requesting refills as follows: Requested Prescriptions Pending Prescriptions Disp Refills calcitriol (ROCALTROL) 0.25 mcg capsule 180 capsule 0 Sig: Take 2 capsules by mouth once daily. Please review and advise. Nivia Fuentes Adm documented in this encounterCleveland Clinic Hillcrest Hospital04-25-2023 History of Present illness Narrative* Kirsten Euceda PA-C - 06/24/2022 10:33 AM EDT This note was created using Easyworks Univers[employer]. Subjective Margareth Gonzalez is a 57 year [...] Chronic kidney disease Contraceptive management Depression Diabetes ([facility]) Diarrhea DVT, lower extremity ([facility]) 08/2014 Right leg (6) Esophagitis Facial fracture due to fall ([facility]) Fatigue Fibromyalgia Fracture Fracture of shaft of fibula GERD (gastroesophageal reflux disease) HLD (hyperlipidemia) on tricor Hyperlipidemia Hypertension Hypomagnesemia Hypopotassemia IBS (irritable bowel syndrome) Insomnia Intertrigo Knee pain Morbid obesity ([facility]) 03/11/2011 Myalgia Nausea Neck pain [...] Take 1 tablet by mouth once daily. Hdqdsqny-Ra-Uak-Fe-FA ( VITAMIN) ORAL Tab Take 1 tablet [...] CULTURE Kirsten Euceda PA-C documented in this encounterCleveland Clinic Hillcrest Hospital04-21-2023 History of Present illness Narrative* Kaylin Carranza RN - 06/20/2022 12:47 PM EDT CKD SPECIALIZED COORDINATION QUICK NOTE Provider Action/FYI Telephone call Telephone call placed to pt. My call went to voice mail. Left msg identifying myself & the reason for my call. Requested a return call @ her earliest convenience. Kaylin Carranza RN documented in this encounterCleveland Clinic Hillcrest Hospital04-20-2023 Miscellaneous Notes* Telephone Encounter - Angeline Spangler - 06/19/2022 9:04 AM EDT Left patient message to call back to schedule Left arm av graft, per Dr Valenzuela needs to be done at [place], patient does not need OV prior to scheduling. 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 Consult to the Endocrinology and Metabolic [place] (STEFANY) recommended prior to surgery. Anemia Hemoglobin [...] Depression Diabetes (HCC) Diarrhea DVT, lower extremity ([facility]) 08/2014 Right leg (6) Esophagitis Facial fracture due to fall ([facility]) Fatigue Fibromyalgia Fracture Fracture of [...] Take 1 tablet by mouth once daily. Kyimsnck-Zp-Kwn-Fe-FA ( VITAMIN) ORAL Tab Take 1 tablet [...] 2022 TIME: 3:10 PM documented in this encounterCleveland Clinic Hillcre[facility] Hospital04-10-2023 Miscellaneous Notes* Telephone Encounter - Omkar Cornejo LPN - 06/09/2022 8:53 AM EDT Patient phones requesting refills as follows: Requested Prescriptions Pending Prescriptions Disp Refills labetalol (TRANDATE) 100 mg tablet 180 tablet 3 Sig: Take 1 tablet by mouth twice daily. SHONDA 03/21/22 NOV 08/11/22 Please review and advise. Omkar Cornejo LPN documented in this encounterCleveland Clinic Hillcrest Hospital03-27-2023 History of Present illness Narrative* Goldy Hunter, - 05/26/2022 3:20 PM EDT [facility] SERVICE DATE: 05/26/2022 [...] mouth once daily. flash glucose scanning reader (Ecloud (Nanj[employer]) Information and TechnologySTYLE FESTUS 2 READER) Use to check glucose [...] Take 1 tablet by mouth once daily. Ojwijvkw-Qp-Fgy-Fe-FA ( VITAMIN) ORAL Tab Take 1 tablet [...] 26, 2022 TIME: 3:31 PM OFFICE NUMBER: [phone] CC: PRIMARY CARE PHYSICIAN: Ignacio Cheatham MD documented in this encounterCleveland Clinic Hillcrest Hospital03-27-2023 Instructions* Patient Instructions* Goldy Hunter DO - [...] will be greatly appreciated. documented in this encounterCleveland Clinic Hillcrest Hospital03-03-2023 Miscellaneous Notes* Telephone Encounter - Kaylin Carranza RN - 05/02/2022 2:57 PM EST CKD SPECIALIZED COORDINATION QUICK NOTE Provider Action/FYI Telephone call Telephone call placed to pt. My call went to Nuvilexil. Left msg identifying myself & the reason for my call. Requested a return call @ her earliest convenience. Kaylin Carranza RN documented in this encounterCleveland Clinic Hillcre[facility] Hospital02-28-2023 Miscellaneous Notes* Telephone Encounter - Karla [place] [...] 08/11/22 Karla [place] MA documented in this [facility]02-17-2023 Miscellaneous Notes* Telephone Encounter - Chrissy Mattie [...] chart. Chrissy Perez LPN documented in this encounterCleveland Clinic Hillcrest Hospital02-09-2023 History of Present illness Narrative* Reagan Riggs MD - 04/10/2022 3:05 PM EST Reagan Riggs MD Department of Orthopaedics Orthopaedics [address] [facility] [address] Dept: [phone] Dept April 10, 2022 CHIEF COMPLAINT: New and Pain of the Left Knee HPI Patient here today for left knee pain. She was last seen on 02/11/2018 OA left knee. She continues to have knee pain. New x-ray today at [facility]. ASSESSMENT: M17.32 Post-traumatic osteoarthritis of left knee (primary encounter diagnosis) M25.562, G89.29 Chronic pain of left knee E11.22, N18.4 Type 2 diabetes mellitus with stage 4 chronic kidney disease, without long-term current use of insulin ([facility]) PLAN: Patient has done a [...] in the medial compartment progressed since 01/01/2018. Archival Records Clerk: PSCKaity Transcribe Date/Time: Apr 16 2022 10:04A [...] osteoarthritis, severe in the medial compartment with pxqe-ol-pmyc contact and moderate in the lateral and [...] Take 1 tablet by mouth once daily. Bnxsdmvl-Qw-Fhr-Fe-FA ( VITAMIN) ORAL Tab Take 1 tablet [...] physician via US mail. Ignacio Cheatham [address] [facility] [address] Reagan Riggs MD documented in this encounterCleveland Clinic Hillcrest Hospital02-09-2023 History of Present illness Narrative* Jenni Cates [...] 10, 2022 1:49 PM documented in this encounterCleveland Clinic Hillcrest Hospital02-04-2023 Miscellaneous Notes* Telephone Encounter - Georgie Bishop MA - 04/05/2022 8:14 AM EST left instructing patient to return call to receive results. Georgie Bishop MA * Telephone Encounter - Georgie Bishop MA - 04/05/2022 8:13 AM EST ----- Message from Hever Cheema APRN.BLOCK PAVER sent at 04/04/2022 10:15 AM EST ----- Urine culture did not show clear evidence of infection.It just grew normal urogenital nazanin. She may continue to take antibiotic if it has been helpful. Recommend follow up with PCP to ensure hematuria has resolved. Hever Martinez CNP documented in this encounterCleveland Clinic Hillcrest Hospital02-02-2023 Miscellaneous Notes* Telephone Encounter - Chloe Carpenter LPN - 04/03/2022 9:10 AM EST Completed and faxed as requested. * Telephone Encounter - Ada Cheng - 04/02/2022 11:50 AM EST Patient came into office and dropped off [facility] paperwork to be completed. Placed on Dr. Donato for review, completion and signature. Needs faxed back to [phone]. Ada Cheng documented in this encounterCleveland Clinic Hillcrest Hospital02-01-2023 History of Present illness Narrative* Kirsten Euceda PA-C - 04/02/2022 12:35 PM EST This note was created using IPPLEX. Luis Alberto Margareth Gonzalez is a 56 [...] Chronic kidney disease Contraceptive management Depression Diabetes ([facility]) Diarrhea DVT, lower extremity ([facility]) 08/2014 Right leg (6) Esophagitis Facial fracture due to fall ([facility]) Fatigue Fibromyalgia Fracture Fracture of shaft of fibula GERD (gastroesophageal reflux disease) HLD (hyperlipidemia) on tricor Hyperlipidemia Hypertension Hypomagnesemia Hypopotassemia IBS (irritable bowel syndrome) Insomnia Intertrigo Knee pain Morbid obesity ([facility]) 03/11/2011 Myalgia Nausea Neck pain [...] Take 1 tablet by mouth once daily. Bslvgovw-Qn-Vvb-Fe-FA ( VITAMIN) ORAL Tab Take 1 tablet [...] CULTURE Kirsten Euceda PA-C documented in this encounterCleveland Clinic Hillcrest Hospital01-26-2023 History of Present illness Narrative* Sarah Mann [...] 27, 2022 9:52 AM documented in this encounterCleveland Clinic Hillcrest Hospital01-04-2023 Miscellaneous Notes* Telephone Encounter - Jenni Muller [...] improving. Sha Ray APRN.NOY documented in this encounterCleveland Clinic Hillcrest Hospital01-03-2023 History of Present illness Narrative* Hever Cheema [...] Depression Diabetes (HCC) Diarrhea DVT, lower extremity ([facility]) 08/2014 Right leg (6) Esophagitis Facial fracture due to fall ([facility]) Fatigue Fibromyalgia Fracture Fracture of [...] mouth once daily. flash glucose scanning reader (Wit studio FESTUS 2 READER) Use to check glucose [...] Take 1 tablet by mouth once daily. Wsilplnp-Yg-Qvb-Fe-FA ( VITAMIN) ORAL Tab Take 1 tablet [...] illness Hever Cheema APRN.CNP documented in this encounterCleveland Clinic Hillcrest Hospital01-03-2023 Instructions* Patient Instructions* Hever Cheema APRN.CNP - [...] fluids help open respiratory and sinus passages [place] Nas[place] may offer relief of nasal and head [...] worse rather than better documented in this encounterCleveland Clinic Hillcrest Hospital12-22-2022 History of Present illness Narrative* Laura Valenzuela [...] Chronic kidney disease Contraceptive management Depression Diabetes ([facility]) Diarrhea DVT, lower extremity ([facility]) 08/2014 Right leg (6) Esophagitis Facial fracture due to fall ([facility]) Fatigue Fibromyalgia Fracture Fracture of [...] mouth once daily. flash glucose scanning reader (Ecloud (Nan[place]) Information and TechnologySTYLE FESTUS 2 READER) Use to check glucose [...] Take 1 tablet by mouth once daily. Zreiekdq-Ja-Tkh-Fe-FA ( VITAMIN) ORAL Tab Take 1 tablet [...] weeks Frank Gerard DPM Podiatry [address] [facility] [address] Dept: [phone] Dept * Clare Chawla RN - 02/20/2022 [...] a post op shoe. documented in this encounterCleveland Clinic Hillcrest Hospital12-22-2022 Instructions* Patient Instructions* Frank Gerard - 02/20/2022 [...] (or decreased sensation in your feet) a bilingual social worker should always cut your toenails. Be Careful [...] Go to your health care provider or bilingual social worker to treat these conditions. Powerstep Original Full length. Can purchase at [employer] here in [place], [employer] in [place] or [place]. Also can find in [email or web address] in [facility]. Powersteps can also be purchased online, starting [...] everything fits well together documented in this [facility]12-22-2022 Nurse Note* Chrissy Perez LPN - 02/20/2022 10:04 AM EST Injection deferred, parameters not met HGB 10.8 Chrissy Perez LPN documented in this [facility]12-20-2022 History of Present illness Narrative* Nakia Hernandez, [...] 18, 2022 9:09 AM documented in this encounterCleveland Clinic Hillcrest Hospital12-20-2022 History of Present illness Narrative* Jimmy Rabago, PATRICE.BLOCK PAVER - 02/18/2022 9:07 AM EST Images from the original note were not included. Subjective HPI HPI Magrareth Gonzalez is a 56 year old female [...] mouth once daily. flash glucose scanning reader (Ecloud ([place]) Information and TechnologySTYLE FESTUS 2 READER) Use to check glucose [...] Take 1 tablet by mouth once daily. Awcisytl-Ee-Tqc-Fe-FA ( VITAMIN) ORAL Tab Take 1 tablet [...] MD - CONSULT TO PODIATRY Jimmy Rabago APRN.BLOCK PAVER documented in this encounterCleveland Clinic Hillcrest Hospital12-06-2022 Instructions* Patient Instructions* Goldy Hunter DO - [...] will be greatly appreciated. documented in this encounterCleveland Clinic Hillcrest Hospital12-06-2022 History of Present illness Narrative* Goldy Hunter DO - 02/04/2022 2:00 PM EST [facility] SERVICE DATE: 02/04/2022 [...] Take 1 tablet by mouth once daily. Knddjyvy-Na-Ynd-Fe-FA ( VITAMIN) ORAL Tab Take 1 tablet [...] 04, 2022 TIME: 2:18 PM OFFICE NUMBER: [phone] CC: PRIMARY CARE PHYSICIAN: Ignacio Cheatham MD documented in this [facility]11-25-2022 Nurse Note* Veronica Atkinson LPN - 01/24/2022 2:57 PM EST Retacrit injection deferred. Pt did not meet treatment parameters. Hgb 10.3 Veronica Atkinson LPN documented in this [facility]10-25-2022 Miscellaneous Notes* Telephone Encounter - Kaylin Carranza - 12/24/2021 12:25 PM EDT Telephone call placed to pt. She did not answer my call. Left voicemail requesting a return call. Kaylin Carranza RN documented in this [facility]10-20-2022 Miscellaneous Notes* Telephone Encounter - Lizzy Marie [...] 20% Teagan Spencer MD documented in this encounterCleveland Clinic Hillcrest Hospital10-19-2022 History and physical note * Teagan Spencer MD - 12/18/2021 9:48 AM EDT Hematology and Medical Oncology PATIENT NAME: Margareth Gonzalez. CLINIC NO: [id number]. ATTENDING PHYSICIAN: Teagan Spencer MD. DATE OF SERVICE:12/18/2021. DIAGNOSIS: Chronic anemia; stage 4 chronic kidney failure, history of iron deficiency anemia; status post gastric bypass. Consultation requested by Fab Cochran APRN.BLOCK PAVER for an opinion regarding anemia. My final [...] Take 1 tablet by mouth once daily. Vaiainwu-Dd-Fbb-Fe-FA ( VITAMIN) ORAL Tab Take 1 tablet by mouth once daily. flash glucose scanning reader (Ecloud ([place]) Information and TechnologySTYLE FESTUS 2 READER) Use to check glucose [...] (6) Esophagitis Facial fracture due to fall ([facility]) Fatigue Fibromyalgia Fracture Fracture of [...] with more than 50% of the total ekeb-wu-bvni time of the visit in counseling / coordination of care. Teagan Spencer MD. ELECTRONICALLY SIGNED Cc: Ignacio Cheatham MD documented in this encounterCleveland Clinic Hill[facility]10-06-2022 Instructions* Patient Instructions* Fab Cochran APRN.BLOCK PAVER - 12/05/2021 1:59 PM EDT PLAN: -Hematology consult to help increase red blood cell count and decrease anemia. Please get the labs done prior -Please increase calcitriol to 0.5mcg daily -Please get labs drawn monthly. Standing orders have been placed -[facility] [phone] Marly -Please go to ER if you have increased itching, hiccups, metallic taste, nausea, vomiting, increasefatigue, confusion or not making urine -Discussed need for continued good diabetes, blood pressure and cholesterol control -Recommend BP goal of 130/80 or less. Please contact the office if your blood pressure is less emcy078/70 or higher than 160/90 -Recommend continued HgbA1c [...] improve our service to you by calling [phone] You may be receiving a survey regarding your care today. If you do, please take a few minutes to fill it out and send it back. It would be greatly appreciated. documented in this encounterCleveland Clinic Hillcrest Hospital10-06-2022 History of Present illness Narrative* Fab Cochran APRN.CNP - 12/05/2021 1:00 PM EDT [facility] DEPARTMENT OF KIDNEY MEDICINE CHIEF COMPLAINT: Follow [...] Since last visit did see vascular Dr Valenzuela who recommend AVG once close to dialysis. [...] mouth once daily. flash glucose scanning reader (Ecloud ([place]) Information and TechnologySTYLE FESTUS 2 READER) Use to check glucose [...] (Patient not taking: Reported on 06/28/2021 ) Aoasmfxu-Gt-Pek-Fe-FA ( VITAMIN) ORAL Tab Take 1 tablet [...] drawn monthly. Standing orders have been placed -[facility] [phone] Marly -Please go to ER if you have increased itching, hiccups, metallic taste, nausea, vomiting, increasefatigue, confusion or not making urine -Discussed need for continued good diabetes, blood pressure and cholesterol control -Recommend BP goal of 130/80 or less. Please contact the office if your blood pressure is less etmu309/70 or higher than 160/90 -Recommend continued HgbA1c [...] and reviewing the chart. documented in this encounterCleveland Clinic Hillcrest Hospital10-06-2022 Miscellaneous Notes* Telephone Encounter - Sury Corral [...] you. Sury Corral LPN documented in this encounterCleveland Clinic Hillcrest Hospital09-28-2022 History of Present illness Narrative* Kaylin Carranza [...] time. Kaylin Carranza RN documented in this encounterCleveland Clinic Hillcrest Hospital09-26-2022 Miscellaneous Notes* Telephone Encounter - Elenita Waldron [...] advise. Elenita Waldron LPN documented in this encounterCleveland Clinic Hillcrest Hospital09-21-2022 History of Present illness Narrative* YOUSIF Fierro - 11/20/2021 3:44 PM EDT PULM FUNCTION SMARTBLOCK: Provider: Dorene Macias MD Assisting Tech: YOUSIF Fierro DLCO: 1 LV - Box: 1 documented in this encounterCleveland Clinic Hillcrest Hospital08-29-2022 History of Present illness Narrative* Son Turpin RN - 10/28/2021 12:34 PM EDT DIABETES SELF-MANAGEMENT EDUCATION AND SUPPORT Location: [place] Type of visit: In person individual Types [...] Race/Ethnic Origin: White/ Does your culture or mormon require any of the following: No cultural/jewish practices affecting DM Do you have problems [...] Chronic kidney disease Contraceptive management Depression Diabetes ([facility]) Diarrhea DVT, lower extremity ([facility]) 08/2014 Right leg (6) Esophagitis Facial fracture due to fall ([facility]) Fatigue Fibromyalgia Fracture Fracture of shaft of fibula GERD (gastroesophageal reflux disease) HLD (hyperlipidemia) on tricor Hyperlipidemia Hypertension Hypomagnesemia Hypopotassemia IBS (irritable bowel syndrome) Insomnia Intertrigo Knee pain Morbid obesity ([facility]) 03/11/2011 Myalgia Nausea Neck pain [...] Take 1 tablet by mouth once daily. Niaqhcey-Xm-Xbk-Fe-FA ( VITAMIN) ORAL Tab Take 1 tablet [...] TIME: 12:36 PM PAGER: documented in this encounterCleveland Clinic Hillcrest Hospital08-29-2022 History of Present illness Narrative* Judi Olson RRT - 10/28/2021 9:56 AM EDT PULM FUNCTION SMARTBLOCK: Provider: Dorene Macias MD Spirometry w/BD: 1 documented in this encounterCleveland Clinic Hillcrest Hospital08-16-2022 Instructions* Patient Instructions* Sha Ray APRN.NOY - [...] or concerning to you. documented in this encounterCleveland Clinic Hillcrest Hospital08-16-2022 History of Present illness Narrative* Sha Ray [...] Depression Diabetes (HCC) Diarrhea DVT, lower extremity ([facility]) 08/2014 Right leg (6) Esophagitis Facial fracture due to fall ([facility]) Fatigue Fibromyalgia Fracture Fracture of [...] 1 tablet by mouth once daily.^Disp: ^Rfl: Mwxsyaag-Bw-Sgo-Fe-FA ( VITAMIN) ORAL Tab^Take 1 tablet by [...] plan of care. This note was generatedusing SalonBookr software. It may contain errors in wording, punctuation, or spelling. Sha Ray APRN.NOY documented in this encounterCleveland Clinic Hillcrest Hospital08-03-2022 Instructions* Patient Instructions* Rojelio Clark MD - [...] meals in 2 weeks documented in this encounterCleveland Clinic Hillcrest Hospital08-03-2022 History of Present illness Narrative* Rojelio Clark [...] 90 tablet 3 flash glucose scanning reader (Ecloud ([place]) Information and TechnologySTYLE FESTUS 2 READER) Use to check glucose [...] Take 1 tablet by mouth once daily. Pkrvjjtg-Fy-Ymo-Fe-FA ( VITAMIN) ORAL Tab Take 1 tablet [...] which included preparing to see the patient, qdrn-qr-oscp patient care, completing clinical documentation, counseling and educating the patient/family/caregiver and ordering medications, tests, or procedures. Rojelio Clark MD documented in this encounterCleveland Clinic Hillcrest Hospital08-01-2022 Miscellaneous Notes* Telephone Encounter - Karly Wells RN - 09/30/2021 10:25 AM EDT Left patient mateo VM was following up in regards to her needing a knee replacement and if she has beenseen by a dentist. Direct desk number provided. documented in this encounterCleveland Clinic Hillcrest Hospital07-16-2022 History of Present illness Narrative* Ignacio Cheatham [...] pulmonary soon. See previous ov: Seen at [facility]. Was feeling lightheaded and had a systolic [...] Take 1 tablet by mouth once daily. Edixgmgw-Zl-Qil-Fe-FA ( VITAMIN) ORAL Tab Take 1 tablet [...] Chronic kidney disease Contraceptive management Depression Diabetes ([facility]) Diarrhea DVT, lower extremity ([facility]) 08/2014 Right leg (6) Esophagitis Facial fracture due to fall ([facility]) Fatigue Fibromyalgia Fracture Fracture of [...] six months and prn. documented in this encounterCleveland Clinic Hillcrest Hospital06-28-2022 History of Present illness Narrative* Jonathan Valenzuela MD - 08/27/2021 9:18 AM EDT Images from the original note were not included. [facility] [place] DEPARTMENT OF VASCULAR SURGERY OUTPATIENT VISIT DATE [...] Depression Diabetes (HCC) Diarrhea DVT, lower extremity ([facility]) 08/2014 Right leg (6) Esophagitis Facial fracture due to fall ([facility]) Fatigue Fibromyalgia Fracture Fracture of [...] Take 1 tablet by mouth once daily. Dygphmsu-Bo-Axw-Fe-FA ( VITAMIN) ORAL Tab Take 1 tablet [...] Wt 104.8 kg (231 lb) LMP 09/20/2014 [id number]% BMI 35.12 kg/m No change in exam. [...] High CM 188 High CM Comment: The [place] Diabetes Association (ADA) provides guidance for cutoff [...] Standards of Medical Care in Diabetes 2016, [place] Diabetes Association. Diabetes Care. 2016.39(Suppl 1). BUN [...] 2021 TIME: 9:18 AM documented in this encounterCleveland Clinic Hillcrest Hospital06-24-2022 Miscellaneous Notes* Telephone Encounter - Efra Box [...] name: Linden Carpenter LPN documented in this encounterCleveland Clinic Hillcrest Hospital06-20-2022 Miscellaneous Notes* Telephone Encounter - Karly Wells RN - 08/19/2021 9:12 AM EDT LVM for patient to please return my call in regards to abnormal test results. Direct desk number provided. documented in this encounterCleveland Clinic Hillcrest Hospital06-16-2022 History of Present illness Narrative* Saira Brody RN - 08/15/2021 12:30 PM EDT RADIOLOGY SERVICE PROGRESS NOTE SERVICE DATE: 08/15/2021 SERVICE TIME: 1:12 PM PATIENT IDENTITY VERIFICATION COMPLETED USING TWO (2) STANDARD IDENTIFIERS: Name and Date of confirmed by patient verbally and Name and Date of confirmed by identification band PATIENT GENDER DATA: female ALLERGIES: Reviewed and unchanged MEDICATIONS REVIEWED BY: Cutter Operator PROCEDURE TYPE: NM STRESS: 0.4 mg of [...] August 15, 2021 TIME: 1:12 PM PAGER/CONTACT #:[phone] * Lionel Manuel, RT(R) - 08/15/2021 12:30 [...] STATUS: Discontinued PROCEDURE TYPE: NM Stress: 14mCi Td21s-Hetuyey was administered IV for Rest Imaging at 1115 by Audra Valadez, RT(R) . 31.6 mCi Bm74b-Bxzydni was administered IV for Stress Imaging at 1:10PM by Enriqueta Manuel, RT(R). ADMINISTRATION TIME: PATIENT DISCHARGED TO: Ambulatory patient, left OR department area. A Diagnostic radioactive procedure has taken place, with no further precautions necessary other than routine body substance precautions. More information regarding radiation safety can be found usingthis link: [email or web address] SIGNATURE: RT Ai(R) PATIENT NAME: Margareth Gonzalez DATE: August 15, 2021 TIME: 11:16 AM PAGER/CONTACT #: documented in this encounterCleveland Clinic Hillcrest Hospital06-16-2022 History of Present illness Narrative* RT Huseyin(R) [...] 15, 2021 10:27 AM documented in this encounterCleveland Clinic Hillcrest Hospital06-13-2022 History of Present illness Narrative* Jonathan Valenzuela MD - 08/12/2021 3:57 PM EDT Images from the original note were not included. [facility] [place] DEPARTMENT OF VASCULAR SURGERY OUTPATIENT VISIT DATE August 12, 2021 OUTPATIENT VISIT TYPE CONSULTATION SERVICE DATE: 08/12/2021 SERVICE TIME: 3:59 PM PRIMARY CARE PHYSICIAN: Ignacio Cheatham MD REFERRING PROVIDER: Fab Cochran [id number] [id number] Consult requested for an opinion regarding the [...] Chronic kidney disease Contraceptive management Depression Diabetes ([facility]) Diarrhea DVT, lower extremity ([facility]) 08/2014 Right leg (6) Esophagitis Facial fracture due to fall ([facility]) Fatigue Fibromyalgia Fracture Fracture of [...] Take 1 tablet by mouth once daily. Hmzukeds-Pw-Gux-Fe-FA ( VITAMIN) ORAL Tab Take 1 tablet [...] 2021 TIME: 3:59 PM documented in this encounterCleveland Clinic Hillcre[facility] Hospital06-07-2022 Miscellaneous Notes* Telephone Encounter - Georgina Salmon [...] placed. Ameena Dumont RN documented in this encounterCleveland Clinic Hillcrest Hospital06-02-2022 Miscellaneous Notes* Addendum Note - Fab Cochran APRN.NOY - 08/01/2021 5:27 PM EDT Addended by: FAB COCHRAN on: 08/01/2021 05:27 PM Modules accepted: Orders documented in this encounterCleveland Clinic Hillcrest Hospital06-02-2022 Instructions* Patient Instructions* Fab Cochran APRN.NOY - [...] office if your blood pressure is less jjwp819/70 or higher than 160/90 -Recommend HgbA1c of [...] Referral to: vascular surgeon. Saira Jackson D.O [phone] in [place] or other locations that are convenient for [...] improve our service to you by calling [phone] You may be receiving a survey regarding your care today. If you do, please take a few minutes to fill it out and send it back. It would be greatly appreciated. documented in this encounterCleveland Clinic Hillcre[facility] Hospital06-02-2022 History of Present illness Narrative* Fab Cochran APRN.NOY - 08/01/2021 1:45 PM EDT [facility] DEPARTMENT OF KIDNEY MEDICINE CHIEF COMPLAINT: Follow [...] at home 90-115 fasting. Has been recommended time study analyst monitoring and is awaiting approval Medication adherence [...] (Patient not taking: Reported on 06/28/2021 ) Necithlg-Iz-Cro-Fe-FA ( VITAMIN) ORAL Tab Take 1 tablet [...] office if your blood pressure is less wwur319/70 or higher than 160/90 -Recommend HgbA1c of [...] Referral to: vascular surgeon. Saira [place] D.O [phone] in [place] or other locations that are convenient for you RTC [address] Dale Cochran CNP Spent 43 minutes in the visit and reviewing the chart. documented in this encounterCleveland Clinic Hillcrest Hospital05-31-2022 History of Present illness Narrative* Ignacio Cheatham MD - 07/30/2021 2:24 PM EDT Patient presents with: Follow Up: ER 07/29/2021 HPI: Patient presents today for office visit for ER visit from yesterday. Seen at [facility]. Was feeling lightheaded and had a systolic [...] Take 1 tablet by mouth once daily. Rdplyixb-Xq-Uva-Fe-FA ( VITAMIN) ORAL Tab Take 1 tablet [...] Chronic kidney disease Contraceptive management Depression Diabetes ([facility]) Diarrhea DVT, lower extremity ([facility]) 08/2014 Right leg (6) Esophagitis Facial fracture due to fall ([facility]) Fatigue Fibromyalgia Fracture Fracture of shaft of fibula GERD (gastroesophageal reflux disease) HLD (hyperlipidemia) on tricor Hyperlipidemia Hypertension Hypomagnesemia Hypopotassemia IBS (irritable bowel syndrome) Insomnia Intertrigo Knee pain Morbid obesity ([facility]) 03/11/2011 Myalgia Nausea Neck pain [...] renal function. Ignacio Cheatham documented in this encounterCleveland Clinic Hillcrest Hospital05-31-2022 Miscellaneous Notes* Telephone Encounter - Lynne Barber MA - 07/30/2021 1:41 PM EDT Spoke with patient and scheduled * Telephone Encounter - Lynne Barber MA - 07/30/2021 9:09 AM EDT Please advise? Okay to see ROLLING MACHINE OPERATOR Fab? * Telephone Encounter - Leticia Zaidi - 07/30/2021 8:32 AM EDT Margareth Arnold Lisa is calling Goldy Hunter DO today with Patient Update. Patient had blood drawn yesterday at er and bun and creatinine was high. She was told to see her hazardous substances scientist as soon as possible. Scheduling does not have a sooner appointment than October. Patient has been identified by name and birthdate. Duration of symptoms: N/A Person calling: self Call patient at: on cell [phone] (home) [phone] (work) [phone] (cell) Was an appointment scheduled: Yes: Date/Time: 11/11/2021 Closing statement: Symptom Call: Thank you for calling [facility], your call is very important. A nurse will call in approximately 2-4 hours during business hours. If this is an emergency, please contact 911. Leticia Sandoval Pss documented in this [facility]2022 Miscellaneous Notes* Telephone Encounter - Chrissy Arriola [...] rapid pulse) Protocols used: BLOOD PRESSURE - [id number]-[id number]-OD documented in this [facility]05-27-2022 Miscellaneous Notes* Telephone Encounter - Ashley Lira LPN - 07/26/2021 11:19 AM EDT shonda-- 06/26/21 Next 08/09/21 Last refill 03/26/21 90 with 3 Last labs 07/03/21 documented in this [facility]05-24-2022 Miscellaneous Notes* Telephone Encounter - Georgina Salmon RN - 07/23/2021 3:18 PM EDT Attempted to contact patient, no answer. Message left for patient to call office and ask for triagenurse. Georgina Salmon RN * Telephone Encounter - Efar Box Ma - 07/23/2021 1:36 PM EDT Please triage mychart message documented in this [facility]05-23-2022 Miscellaneous Notes* Telephone Encounter - Sarah Merida [...] advise. Sarah Merida Ma documented in this encounterCleveland Clinic Hillcrest Hospital05-19-2022 Miscellaneous Notes* Telephone Encounter - Goldy Hunter DO - 07/18/2021 2:53 PM EDT Yes please. Fab. * Telephone Encounter - Nivia Leonard - 07/18/2021 2:45 PM EDT Pt cancelled her appt with you on 07/24/2021. Rescheduled for 11/11/21. She would like an earlier appt would you like me to try for a AP? Nivia Fuentes Supervisor Forming And Tempering documented in this encounterCleveland Clinic Hillcrest Hospital05-04-2022 History of Present illness Narrative* Khushboo Bolanos [...] 2:08 PM EDT [facility] Transplant Evaluation CC: Patient is a 56 year old female here for transplant candidacy evaluation. Reason for visit: here for evaluation to be a Kidney Transplant recipient. Referred by: Goldy Hunter [address] [place] [address] I will communicate with the referring provider [...] a urologist for evaluation Denies any h/o UT or CVA Describes a h/o DVT x [...] Chronic kidney disease Contraceptive management Depression Diabetes ([facility]) Diarrhea DVT, lower extremity ([facility]) 08/2014 Right leg (6) Esophagitis Facial fracture due to fall ([facility]) Fatigue Fibromyalgia Fracture Fracture of shaft of fibula GERD (gastroesophageal reflux disease) HLD (hyperlipidemia) on tricor Hyperlipidemia Hypertension Hypomagnesemia Hypopotassemia IBS (irritable bowel syndrome) Insomnia Intertrigo Knee pain Morbid obesity ([facility]) 03/11/2011 Myalgia Nausea Neck pain [...] Take 1 tablet by mouth once daily. Nsbsmnbt-Oi-Hsa-Fe-FA ( VITAMIN) ORAL Tab Take 1 tablet [...] are not limited to: bleeding, infection, , UT, DVT, PE, CVA, risk of damage to [...] Urology evaluation. [facility] -Vascular medicine eval possible h/o hypercoaguable state -The patient is an acceptable surgical candidate for renal transplant pending acceptable findings on the remainder of the pre-transplant evaluation Linda Livingston MD documented in this encounterCleveland Clinic Hillcrest Hospital05-04-2022 Instructions* Patient Instructions* Latricia Deleon RD - [...] Follow Low-Phosphorus diet 800-1000mg/day documented in this encounterCleveland Clinic Hillcrest Hospital05-04-2022 History of Present illness Narrative* Luis Mejia MD - 07/03/2021 2:30 PM EDT [facility] Transplant Evaluation CC: Patient is a 56 year old female here for transplant candidacy evaluation. Reason for visit: here for evaluation to be a Kidney Transplant recipient. Referred by: Goldy Hunter [address] [place] [address] I will communicate with the referring provider [...] (6) Esophagitis Facial fracture due to fall ([facility]) Fatigue Fibromyalgia Fracture Fracture of [...] (Patient not taking: Reported on 06/28/2021 ) Knceodcz-Yn-Wur-Fe-FA ( VITAMIN) ORAL Tab Take 1 tablet [...] letter. Luis Mejia MD documented in this encounterCleveland Clinic Hillcre[facility] Hospital05-04-2022 History of Present illness Narrative* Latricia Pancho, [...] Concerns: weight gain Diet History: Breakfast - Cane Beds with butter or jelly Lunch - PB [...] 12:48 PM PAGER: N/A documented in this encounterCleveland Clinic Hillcre[facility] Hospital05-04-2022 History of Present illness Narrative* RT Kiesha(R) [...] 03, 2021 12:17 PM documented in this encounterCleveland Clinic Hillcrest Hospital05-04-2022 History of Present illness Narrative* Dakota Hernandez [...] about Kidney Allocation Policy -Directions to access [facility]'s data through the [employer] website. -Informed Consent for Transplant Program Participation patient education packet -National Kidney Registry pamphlet -Covid-19 Vaccination for Transplant Candidates Method of Instruction: Group class instruction Written instruction - handouts Verbal instruction Computer Patient/Family Response: Patient and family member asked appropriate questions, which were answeredsatisfactorily. Follow-Up Plan: Complete - No need for follow-up Referral/Recommendation: None Dakota Hernandez RN Pre-Felt Finishing Supervisor documented in this encounterCleveland Clinic Hillcrest Hospital05-04-2022 History of Present illness Narrative* LeticiaESTEPHANIE Soriano [...] Citizen: Yes IDENTIFYING INFORMATION/LIVING SITUATION Margareth Gonzalez [id number] [facility] [id number]. The home is about 1.5 hours from . Margareth Gonzalez has been living in this home for three years. Margareth Gonzalez is is independent with all ADL's. The pt lives alone, drives, and has a vehicle. Caregiver responsibilities: None Pets in the home: Three cats. Pet care precautions reviewed. TRANSPLANT LODGING PLANS FOR PATIENTS WHO LIVE 2.5 OR MORE HOURS AWAY FROM [facility]: Do you have the financial means to [...] it or because of side-effects? No. Moral, jewish, or ethical views about transplants or blood [...] substance use problems. He is in a alf house now. Niece has anxiety and depression. Is a referral to Transplant Psychiatry indicated for further evaluation or screening: Yes. Pt reports diagnosis of Bipolar. SOCIAL NARRATIVE Margareth Gonzalez grew up in [place], [place]. She is 56 years of age. [...] disciplinarians. Excerpt from Bariatric Evaluation on 02/19/2012, [facility] NOY Campbell: Arnold Gonzalez is the middle of 5 siblings. The patient was born and raised in [place]. She completed some college. She described her [...] PTO and STD. HEALTH INSURANCE/FINANCIAL Medical Insurance: [place] Payer of Insurance Premium: Pt Prescription Coverage: [...] Yes Primary Caregiver: Halle Barragan Contact Number: [phone] Health Status and Availability of Caregiver: Good health/available Valid Coding Auditor's License/Working Vehicle: Yes/Yes Caregiver Substance Use: Denies Caregiver Mental Health: Stable Secondary Caregiver: George Gonzalez, brother. He confirmed support on 07/08/21. Contact Number: [phone] Health Status and Availability: Good health/Available Valid Coding Auditor's License/Working Vehicle: Yes/Yes Caregiver Substance Use: Denies [...] she saw him for psychotherapy at the [facility] office in 2011. The pt was seen [...] bipolar illness at a free clinic in [place] between 2004 and 2005. She was on Cymbalta for depression at that time. While on Cymbalta she had several panic attacks. She was referred to the counseling center in [place] and was started on Abilify and after [...] follow up with recommended plan of care. Aronld has not started dialysis. She has [employer] coverage and will most likely need prescription [...] discussed the need to have a caregiver time study analyst for 2 weeks post transplant. Margareth Gonzalez was advised that it is imperative to adhere to the medical regimen and recovery restrictions. Gianni Gonzalez indicated understanding of this information. Pt had the opportunity to ask questions. Pt was given information and brochures about the kidney transplant process and fund raising options. Pt was given the phone number of the transplant hospital social worker to address future concerns. LARRY Gabriel, [facility], [facility] Transplant Boiler Tester documented in this encounterCleveland Clinic Hillcre[facility] Hospital04-29-2022 Instructions* Patient Instructions* Rojelio Clark MD - [...] and let us know documented in this encounterCleveland Clinic Hillcrest Hospital04-29-2022 History of Present illness Narrative* oRjelio Clark MD - 06/28/2021 10:00 AM EDT [...] (6) Esophagitis Facial fracture due to fall ([facility]) Fatigue Fibromyalgia Fracture Fracture of [...] (1:1,000) atIn by INJECTION(UNSPECIFIED PARENTERAL ROUTES) route. Nafihyld-Yi-Szf-Fe-FA ( VITAMIN) ORAL Tab Take 1 tablet [...] with more than 50% of the total [id number] time of the visit in counseling / coordination of care. Rojelio Clark MD documented in [place] encounterJeffrey [place]ille [id number] Miscellaneous Notes* Telephone Encounter - Khushboo Bolanos MA - 06/26/2021 5:31 PM EDT Left message reminding patient of appointment on 07/03/2021. Stated the importance of arriving on time as if she is late she may be asked to reschedule the eniti day. Callback number was provided. Khushboo Bolanos MA documented in this encounterC[facility] History of Present illness Narrative* Ignacio Cheatham [...] (1:1,000) atIn by INJECTION(UNSPECIFIED PARENTERAL ROUTES) route. Axjzzggu-Wp-Vlh-Fe-FA ( VITAMIN) ORAL Tab Take 1 tablet [...] Depression Diabetes (HCC) Diarrhea DVT, lower extremity ([facility]) 08/2014 Right leg (6) Esophagitis Facial fracture due to fall ([facility]) Fatigue Fibromyalgia Fracture Fracture of [...] 5. Bipolar affective disorder, remission status unspecified ([facility]) - ICD9: 296.80, ICD10: F31.9 [...] RTO in six weeks. documented in this encounterC[facility]04-07-2022 Miscellaneous Notes* Telephone Encounter - Efra Box Ma - 06/06/2021 10:24 AM EDT Patient was made aware of the results. Patient verbalizes understanding. Efra Box Ma * Telephone Encounter - Ignacio Cheatham MD - 06/06/2021 9:33 AM EDT Final culture results came in. Does show uti. Lets add renal dosed cipro. documented in this encounterC[facility]04-06-2022 Miscellaneous Notes* Telephone Encounter - Omkar Cornejo [...] Any current urinary symptoms? documented in this encounterC[facility]04-04-[facility]22 History of Present illness Narrative* Stacy Schmitz [...] Chronic kidney disease Contraceptive management Depression Diabetes ([facility]) Diarrhea DVT, lower extremity ([facility]) 08/2014 Right leg (6) Esophagitis Facial fracture due to fall ([facility]) Fatigue Fibromyalgia Fracture Fracture of shaft of fibula GERD (gastroesophageal reflux disease) HLD (hyperlipidemia) on tricor Hyperlipidemia Hypertension Hypomagnesemia Hypopotassemia IBS (irritable bowel syndrome) Insomnia Intertrigo Knee pain Morbid obesity ([facility]) 03/11/2011 Myalgia Nausea Neck pain [...] (1:1,000) atIn by INJECTION(UNSPECIFIED PARENTERAL ROUTES) route. Ufqephnu-Ik-Jde-Fe-FA ( VITAMIN) ORAL Tab Take 1 tablet [...] plan. Stacy Schmitz PA-C documented in this encounterC[facility]09-01-[facility]21 History of Present illness Narrative* Jenni Bell, [...] 31, 2020 3:52 PM documented in this encounterCleveland Clinic [facility]02-15-[facility] History of Past illness Narrative* Problem Noted [...] of this encounter (statuses as of 06/03/2021) [facility] N[facility]ative* Problem Noted [...] of this encounter (statuses as of 06/05/2021) [facility]* Problem Noted [...] of this encounter (statuses as of 06/06/2021) [facility] Narrative* Problem Noted [...] of this encounter (statuses as of 06/14/2021) [facility] Narrative* Problem Noted [...] 04/16/2017 Overview: [facility] with [facility], [facility], Dr. Henderson documented as of this encounter (statuses as of 06/26/2021) [facility] Narrative* Problem Noted [...] of this encounter (statuses as of 06/26/2021) [facility]* Problem Noted [...] of this encounter (statuses as of 06/28/2021) [facility]* Problem Noted [...] of this encounter (statuses as of 07/03/2021) [facility]* Problem Noted [...] of this encounter (statuses as of 07/03/2021) [facility]* Problem Noted [...] of this encounter (statuses as of 07/03/2021) [facility]* Problem Noted [...] of this encounter (statuses as of 07/03/2021) [facility] Problem Noted [...] of this encounter (statuses as of 07/04/2021) [facility] Problem Noted [...] of this encounter (statuses as of 07/04/2021) [facility]* Problem Noted [...] of this encounter (statuses as of 07/08/2021) [facility]* Problem Noted [...] of this encounter (statuses as of 07/18/2021) [facility]* Problem Noted [...] of this encounter (statuses as of 07/22/2021) [facility]* Problem Noted [...] of this encounter (statuses as of 07/26/2021) [facility]* Problem Noted [...] Overview: [facility] documented as of this encounter (statuses as of 07/30/2021) [facility] Narr[facility]* Problem Noted [...] of this encounter (statuses as of 07/30/2021) [facility] Problem Noted [...] of this encounter (statuses as of 08/01/2021) [facility] Problem Noted [...] of this encounter (statuses as of 08/06/2021) [facility] Problem Noted [...] of this encounter (statuses as of 08/12/2021) [facility] Problem Noted [...] of this encounter (statuses as of 08/13/2021) [facility] Problem Noted [...] of this encounter (statuses as of 08/16/2021) [facility] Problem Noted [...] of this encounter (statuses as of 08/16/2021) [facility] Problem Noted [...] of this encounter (statuses as of 08/19/2021) [facility] Problem Noted [...] of this encounter (statuses as of 08/23/2021) [facility] Problem Noted [...] of this encounter (statuses as of 08/27/2021) [facility] Problem Noted [...] of this encounter (statuses as of 09/14/2021) [facility] Problem Noted [...] of this encounter (statuses as of 09/30/2021) [facility] Problem Noted [...] of this encounter (statuses as of 10/02/2021) [facility] Problem Noted [...] of this encounter (statuses as of 10/07/2021) [facility] Problem Noted [...] of this encounter (statuses as of 10/15/2021) [facility] Problem Noted [...] of this encounter (statuses as of 10/28/2021) [facility] Problem Noted [...] of this encounter (statuses as of 10/28/2021) [facility] Problem Noted [...] of this encounter (statuses as of 10/28/2021) [facility] Problem Noted [...] of this encounter (statuses as of 11/20/2021) [facility] Problem Noted [...] of this encounter (statuses as of 11/25/2021) [facility] Problem Noted [...] of this encounter (statuses as of 11/27/2021) [facility] Problem Noted [...] of this encounter (statuses as of 11/27/2021) [facility] Problem Noted [...] of this encounter (statuses as of 12/05/2021) [facility] Problem Noted [...] of this encounter (statuses as of 12/05/2021) [facility] Problem Noted [...] of this encounter (statuses as of 12/19/2021) [facility] Problem Noted [...] of this encounter (statuses as of 12/19/2021) [facility] Problem Noted [...] of this encounter (statuses as of 12/24/2021) [facility] Problem Noted [...] of this encounter (statuses as of 12/30/2021) [facility] Problem Noted [...] of this encounter (statuses as of 01/08/2022) [facility] Problem Noted [...] of this encounter (statuses as of 01/10/2022) [facility] Problem Noted [...] of this encounter (statuses as of 01/14/2022) [facility] Problem Noted [...] of this encounter (statuses as of 01/24/2022) [facility] Problem Noted [...] of this encounter (statuses as of 02/04/2022) [facility] Problem Noted [...] of this encounter (statuses as of 02/07/2022) [facility] Problem Noted [...] of this encounter (statuses as of 02/18/2022) [facility] Problem Noted [...] of this encounter (statuses as of 02/21/2022) [facility] Problem Noted [...] 04/16/2017 Overview: Follows with [facility], [facility], Dr. Henderson documented as of this encounter (statuses as of 02/21/2022) [facility] Problem Noted [...] of this encounter (statuses as of 03/06/2022) [facility] Problem Noted [...] of this encounter (statuses as of 03/06/2022) [facility] Problem Noted [...] of this encounter (statuses as of 03/07/2022) [facility] Problem Noted [...] of this encounter (statuses as of 03/25/2022) [facility] Problem Noted [...] of this encounter (statuses as of 03/27/2022) [facility] Problem Noted [...] of this encounter (statuses as of 04/02/2022) [facility] Problem Noted [...] of this encounter (statuses as of 04/03/2022) [facility] Problem Noted [...] of this encounter (statuses as of 04/10/2022) [facility] Problem Noted [...] of this encounter (statuses as of 04/29/2022) [facility] Problem Noted [...] of this encounter (statuses as of 05/01/2022) [facility] Problem Noted [...] of this encounter (statuses as of 05/02/2022) [facility] Problem Noted [...] of this encounter (statuses as of 05/13/2022) [facility] Problem Noted [...] Overview: [facility] Henderson documented as of this encounter (statuses as of 05/26/2022) [facility] Problem Noted [...] of this encounter (statuses as of 06/09/2022) [facility] Problem Noted [...] of this encounter (statuses as of 06/13/2022) [facility] Problem Noted [...] of this encounter (statuses as of 06/19/2022) [facility] Problem Noted [...] of this encounter (statuses as of 06/20/2022) [facility] Problem Noted [...] of this encounter (statuses as of 06/20/2022) [facility] Problem Noted [...] of this encounter (statuses as of 06/24/2022) [facility] Problem Noted [...] of this encounter (statuses as of 06/25/2022) [facility] Problem Noted [...] of this encounter (statuses as of 07/02/2022) [facility] Problem Noted [...] of this encounter (statuses as of 07/03/2022) [facility] Problem Noted [...] of this encounter (statuses as of 07/31/2022) [facility] Problem Noted [...] of this encounter (statuses as of 08/01/2022) [facility] Problem Noted [...] of this encounter (statuses as of 08/05/2022) [facility]* Problem Noted [...] Overview: [facility] Dr. Henderson Acute gastritis 12/16/2007 08/04/2022 Overview: EGD with minimal gastritis, negative H Pylori 12/07 documented as of this encounter (statuses as of 08/05/2022) [facility]* Problem Noted [...] Overview: [facility], Dr. Henderson Acute gastritis 12/16/2007 08/04/2022 Overview: EGD with minimal gastritis, negative H Pylori 12/07 documented as of this encounter (statuses as of 08/05/2022) [facility] Problem Noted [...] of this encounter (statuses as of 08/06/2022) [facility] Problem Noted [...] of this encounter (statuses as of 08/18/2022) [facility] Problem Noted [...] of this encounter (statuses as of 08/20/2022) [facility] Problem Noted [...] of this encounter (statuses as of 08/21/2022) [facility] Problem Noted [...] of this encounter (statuses as of 08/26/2022) [facility] Problem Noted [...] of this encounter (statuses as of 08/27/2022) [facility] Problem Noted [...] Overview: [facility]s with [facility], Dr. Henderson Acute gastritis 12/16/2007 08/04/2022 Overview: EGD with minimal gastritis, negative H Pylori 12/07 documented as of this encounter (statuses as of 08/27/2022) [facility]* Problem Noted [...] Overview: [facility] gastritis 12/16/2007 08/04/2022 Overview: EGD with minimal gastritis, negative H Pylori 12/07 documented as of this encounter (statuses as of 09/03/2022) [facility] Problem Noted [...] of this encounter (statuses as of 09/10/2022) [facility] Problem Noted [...] of this encounter (statuses as of 09/10/2022) [facility] Problem Noted [...] of this encounter (statuses as of 09/10/2022) [facility] Problem Noted [...] of this encounter (statuses as of 09/11/2022) [facility] Problem Noted [...] of this encounter (statuses as of 09/11/2022) [facility] Problem Noted [...] of this encounter (statuses as of 09/16/2022) [facility] Problem Noted [...] of this encounter (statuses as of 09/16/2022) [facility]* Problem Noted [...] Overview: [facility] Henderson Acute gastritis 12/16/2007 08/04/2022 Overview: EGD with minimal gastritis, negative H Pylori 12/07 documented as of this encounter (statuses as of 09/18/2022) [facility] Problem Noted [...] of this encounter (statuses as of 09/30/2022) [facility] Problem Noted [...] of this encounter (statuses as of 10/09/2022) [facility] Problem Noted [...] of this encounter (statuses as of 10/15/2022) [facility]* Problem Noted [...] 18 Overview: Follows with [facility], [facility], Dr. Henderson Acute gastritis 12/16/2007 08/04/2022 Overview: EGD with minimal gastritis, negative H Pylori 12/07 documented as of this encounter (statuses as of 10/15/2022) [facility]* Problem Noted [...] Overview: [facility]. Henderson Acute gastritis 12/16/2007 08/04/2022 Overview: EGD with minimal gastritis, negative H Pylori 12/07 documented as of this encounter (statuses as of 10/16/2022) [facility] Problem Noted [...] of this encounter (statuses as of 10/17/2022) [facility] Problem Noted [...] of this encounter (statuses as of 10/21/2022) [facility] Problem Noted [...] of this encounter (statuses as of 11/04/2022) [facility] Problem Noted [...] of this encounter (statuses as of 11/07/2022) [facility] Problem Noted [...] of this encounter (statuses as of 11/11/2022) [facility] Problem Noted [...] of this encounter (statuses as of 11/14/2022) [facility] Problem Noted [...] of this encounter (statuses as of 11/17/2022) [facility] Problem Noted [...] of this encounter (statuses as of 11/19/2022) [facility] Problem Noted [...] of this encounter (statuses as of 11/19/2022) [facility]* Problem Noted [...] 18 Overview: Follows with [facility], [facility], Dr. Henderson Acute gastritis 12/16/2007 08/04/2022 Overview: EGD with minimal gastritis, negative H Pylori 12/07 documented as of this encounter (statuses as of 11/21/2022) [facility]* Problem Noted Date Diagnosed Date Resolved Date Other chronic pain 04/16/2017 9 Other adjustment reaction [facility] predominant disturbance of other emotions 05/02/2011 [...] of this encounter (statuses as of 11/24/2022) [facility]* Problem Noted [...] of this encounter (statuses as of 11/25/2022) [facility] Problem Noted [...] of this encounter (statuses as of 11/28/2022) [facility] Problem Noted [...] of this encounter (statuses as of 11/28/2022) [facility] Problem Noted [...] of this encounter (statuses as of 12/10/2022) [facility] Problem Noted [...] of this encounter (statuses as of 12/12/2022) [facility]* Problem Noted [...] with [facility], Dr. Hendreson Acute gastritis 12/16/2007 08/04/2022 Overview: EGD with minimal gastritis, negative H Pylori 12/07 documented as of this encounter (statuses as of 01/04/2023) [facility]* Problem Noted [...] of this encounter (statuses as of 01/04/2023) [facility] Problem Noted [...] of this encounter (statuses as of 01/04/2023) [facility] Problem Noted [...] of this encounter (statuses as of 01/04/2023) [facility] Problem Noted [...] of this encounter (statuses as of 01/04/2023) [facility]* Problem Noted [...] of this encounter (statuses as of 01/07/2023) [facility] Problem Noted [...] of this encounter (statuses as of 01/15/2023) [facility] [facility] History of Past illness Narrative* Problem Noted [...] of this encounter (statuses as of 01/20/2023) [facility] History of Past illness Narrative* Problem Noted [...] Overview: [facility], Dr. Henderson Acute gastritis 12/16/2007 08/04/2022 Overview: EGD with minimal gastritis, negative H Pylori 12/07 documented as of this encounter (statuses as of 01/27/2023) [facility] History of Past illness Narrative* Problem Noted Date Diagnosed Date Resolved Date Other chronic pain 04/16/2017 9 Other adjustment reaction [facility] predominant disturbance of other emotions 05/02/2011 [...] of this encounter (statuses as of 01/28/2023) [facility] note Author Karla Terry [facility] January 29, 2023 12:14pm Note Date/Time January 29, 2023 12:15pm [facility] Medical Records Department [address] [place] [address] Counseling Note - Pharmacy 01/29/23 1214 MR#: [id number] Acct: [id number] Name: Margareth GONZALEZ Rep #:[id number] : 1965 57 From: Karla Terry PCP: Dr. Ignacio Cheatham MD Status:ADM I N Y Location: [place] [address] [facility] Service has performed discharge [...] Signature (if applicable): Date CC: ~ Signed [facility] Work Phone: Discharge summary Author Johnathon Robertson [facility] March 09, 2023 10:51am Note Date/Time March 09, 2023 9: 58am [facility] Medical Records Department [address] [place] [address] Emergency Department Summary 03/09/23 MR#: [id number] Acct: [id number] Name: Margareth GONZALEZ Rep #:[id number] : 1965 57 From: Johnathon Robertson MD PCP: Dr. Ignacio [...] Prior similar symptoms: Yes Recent Illness/H[facility]: [facility] Medical History Anemia Anxiety and depression Asthma [...] 100 mg PO DAILY STOOL SOFTENER #20 [id number]/16/23 [Rx Last Taken Unknown] apixaban 2.5 mg [...] 10:30 EST Reading Location ID and State: [facility] / [place] Tel , Service support , Knee X-Ray 03/09/23 09:51 IMPRESSION: Status post open reduction internal fixation of fractured proximal tibia with intramedullary stephen. Healing fractures of the proximal tibia and fibula. Electronically Signed: Cong Stallworth MD at 10:37 EST Reading Location ID and State: [facility] / [place] Tel , Service support , Tibia/Fibula X-Ray 03/09/23 09:51 IMPRESSION: Status post open reduction internal fixation of the proximal tibia as described above. No new fracture is seen. Electronically Signed: Cong Stallworth MD at 10:40 EST Reading Location ID and State: [facility] / [place] Tel , Service support , Knee x-ray, [...] your Primary Care Provider. Call [facility] ([phone]) or report to the closest Emergency Room. Call 911 if necessary. 03/09/23 1051 <Electronically signed by Johnathon Robertson MD> Cosigner Signature (if applicable): CC: Dr. Ignacio Cheatham MD ~ Signed [facility] Work Phone: Evaluation note* Diagnosis Vomiting and diarrhea- Primary Vomiting alone Nausea Nausea alone [facility] Diagnosis Urinary tract infection without hematuria, site unspecified- Primary [facility]* Diagnosis Hyperlipidemia, unspecified hyperlipidemia type documented [facility]* Diagnosis Type 2 diabetes, controlled, with [...] and myositis, unspecified [facility]* Diagnosis Type 2 diabetes mellitus with stage 4 chronic kidney disease, without long-term current use of insulin (HCC)- Primary [facility]* Diagnosis Pre-transplant evaluation for kidney transplant- Primary Other specified pre-operative examination [facility]* Diagnosis CKD (chronic kidney disease) stage 4, GFR 15-29 ml/min (HCC) Chronic kidney disease, Stage IV (severe) Pre-transplant evaluation for chronic kidney disease Other specified pre-operative examination Diabetic nephropathy associated with type 2 diabetes mellitus (HCC) [facility] Diagnosis Pre-transplant evaluation for ESRD (end stage renal disease)- Primary Other specified pre-operative examination [facility]* Diagnosis Awaiting organ transplant- Primary Awaiting [...] surveillance and counseling [facility]* Diagnosis Pre-transplant evaluation for kidney transplant Other specified pre-operative examination documented in this encounter [facility] note* Diagnosis Pre-transplant evaluation for CKD (chronic kidney disease)- Primary Other specified pre-operative examination CKD (chronic kidney disease), stage IV (HCC) Chronic kidney disease, Stage IV (severe) Patient awaiting renal transplant Awaiting organ transplant status Personal history of DVT (deep vein thrombosis) Personal history of venous thrombosis and embolism H/O gastric bypass Bariatric surgery status [facility]* Diagnosis Poorly controlled diabetes mellitus (HCC) Type II or unspecified type diabetes mellitus without mention of complication, not stated as uncontrolled documented in this encounter [facility] noteNo assessment information availableWOhio[facility] Work Phone: Evaluation note* Diagnosis Hypotension, [...] Persistent proteinuria Proteinuria documented in this encounter [facility] note* Diagnosis Stage 5 chronic kidney disease not on chronic dialysis (HCC)- Primary Secondary renal hyperparathyroidism (HCC) Secondary hyperparathyroidism (of renal origin) Metabolic acidosis Acidosis Anemia of renal disease Anemia in chronic kidney disease Essential hypertension Unspecified essential hypertension Hyperlipidemia, unspecified hyperlipidemia type Vitamin D deficiency Unspecified vitamin D deficiency Persistent proteinuria Proteinuria Hyperphosphatemia Disorders of phosphorus metabolism documented in this encounter [facility] note* Diagnosis CKD (chronic kidney disease) stage 5, GFR less than 15 ml/min (HCC)- Primary Chronic kidney disease, Stage V [facility] Diagnosis CKD (chronic kidney disease) stage 5, GFR less than 15 ml/min (HCC)- Primary Chronic kidney disease, Stage V [facility] Pre-transplant evaluation for chronic kidney disease Other specified pre-operative examination Pre-operative cardiovascular examination Encounter for preprocedural cardiovascular examination Pre-operative cardiovascular examination [facility]* Diagnosis Pre-transplant evaluation for chronic kidney disease Other specified pre-operative examination Lung nodules Other nonspecific abnormal finding of lung field [facility] Diagnosis ESRD on dialysis ([facility])- Primary End stage renal disease [facility]* Diagnosis Type 2 diabetes, controlled, with neuropathy ([facility])- Primary Type II or unspecified type diabetes mellitus with neurological manifestations, not stated as uncontrolled Essential hypertension Unspecified essential hypertension Lung nodule Solitary pulmonary nodule Type 2 diabetes mellitus with stage 4 chronic kidney disease, without long-term current use of insulin ([facility]) CKD (chronic kidney disease) Stage 4, GFR 15-29 ml/min Chronic kidney disease, Stage IV (severe) Other iron deficiency anemia Bipolar affective disorder, remission status unspecified ([facility]) Dental infection Acute apical periodontitis of pulpal origin [facility] Diagnosis Poorly controlled type 2 diabetes mellitus (HCC)- Primary Type II or unspecified type diabetes mellitus without mention of complication, not stated as uncontrolled [facility] Diagnosis Viral illness- Primary Unspecified viral infection, in conditions classified elsewhere and of unspecified site [facility]* Diagnosis Pulmonary nodules Other nonspecific abnormal finding of lung field [facility] Diagnosis Poorly controlled type 2 diabetes mellitus (HCC) Type II or unspecified type diabetes mellitus without mention of complication, not stated as uncontrolled [facility] Diagnosis Poorly controlled type 2 diabetes mellitus (HCC)- Primary Type II or unspecified type diabetes mellitus without mention of complication, not stated as uncontrolled [facility] Diagnosis Pulmonary nodules Other nonspecific abnormal finding of lung field [facility] Diagnosis Pulmonary nodules Other nonspecific abnormal finding of lung field [facility] Diagnosis CKD (chronic kidney disease) stage 5, GFR less than 15 ml/min (HCC)- Primary Chronic kidney disease, Stage V [facility]* Diagnosis Chronic kidney disease, stage 4, severely decreased GFR (HCC)- Primary Chronic kidney disease, Stage IV (severe) Secondary renal hyperparathyroidism (HCC) Secondary hyperparathyroidism (of renal origin) Anemia of renal disease Anemia in chronic kidney disease Metabolic acidosis Acidosis Essential hypertension Unspecified essential hypertension Hyperlipidemia, unspecified hyperlipidemia type Persistent proteinuria Proteinuria Type 2 diabetes, controlled, with neuropathy ([facility]) Type II or unspecified type diabetes mellitus with neurological manifestations, not stated as uncontrolled [facility]* Diagnosis Iron malabsorption- Primary Other specified intestinal malabsorption Anemia due to stage 4 chronic kidney disease (HCC) [facility]* Diagnosis Anxiety with depression [facility]* Diagnosis CKD (chronic kidney disease) Stage 4, GFR 15-29 ml/min- Primary Chronic kidney disease, Stage IV (severe) Iron malabsorption Other specified intestinal malabsorption H/O gastric bypass Bariatric surgery status [facility]* Diagnosis CKD (chronic kidney disease) Stage 4, GFR 15-29 ml/min- Primary Chronic kidney disease, Stage IV (severe) Iron malabsorption Other specified intestinal malabsorption H/O gastric bypass Bariatric surgery status [facility]* Diagnosis Anemia of renal disease- Primary Anemia in chronic kidney disease CKD (chronic kidney disease) Stage 4, GFR 15-29 ml/min Chronic kidney disease, Stage IV (severe) Iron malabsorption Other specified intestinal malabsorption H/O gastric bypass Bariatric surgery status [facility]* Diagnosis CKD (chronic kidney disease) Stage 4, GFR 15-29 ml/min- Primary Chronic kidney disease, Stage IV (severe) Iron malabsorption Other specified intestinal malabsorption H/O gastric bypass Bariatric surgery status [facility]* Diagnosis CKD (chronic kidney disease) Stage 4, GFR 15-29 ml/min- Primary Chronic kidney disease, Stage IV (severe) [facility]* Diagnosis CKD (chronic kidney disease) stage [...] disease, without long-term current use of insulin ([facility]) documented in this encounter [place] [...] osteoarthrosis, lower leg [facility]* Diagnosis ESRD (end stage renal disease) (HCC)- Primary End stage renal disease [facility]* Diagnosis Acute UTI- Primary Urinary tract infection, site not specified ESRD (end stage renal disease) (HCC) End stage renal disease [facility]* Diagnosis Secondary renal hyperparathyroidism (HCC) Secondary hyperparathyroidism (of renal origin) ESRD (end stage renal disease) (HCC) End stage renal disease [facility]* Diagnosis Pre-operative examination- Primary Preoperative examination, unspecified Mild intermittent asthma without complication Unspecified asthma Bipolar affective disorder, remission status unspecified ([facility]) Anemia, unspecified type Neuropathy Mononeuritis of unspecified site Gastroesophageal reflux disease, unspecified whether esophagitis present Type 2 diabetes, controlled, with neuropathy ([facility]) Type II or unspecified type [...] (BMI) of 36.0 to 36.9 in adult ([facility]) Hyperkalemia Hyperpotassemia ESRD (end stage renal disease) (HCC) End stage renal disease [facility]* Diagnosis Procedure not carried out- Primary Procedure not carried out for other reasons [facility]* Diagnosis CKD (chronic kidney disease) stage 5, GFR less than 15 ml/min (HCC)- Primary Chronic kidney disease, Stage V [facility]* Diagnosis End stage renal disease (HCC)- Primary End stage renal disease [facility] Diagnosis CKD (chronic kidney disease) Stage 4, GFR 15-29 ml/min- Primary Chronic kidney disease, Stage IV (severe) [facility]* Diagnosis Hyperkalemia- Primary Hyperpotassemia [facility] Diagnosis CKD (chronic kidney disease) stage 5, GFR less than 15 ml/min (HCC)- Primary Chronic kidney disease, Stage V [facility]* Diagnosis Inability to ambulate due to multiple joints- Primary Difficulty in walking Superficial phlebitis of right leg Phlebitis and thrombophlebitis of superficial vessels of lower extremities Type 2 diabetes, controlled, with neuropathy (HCC) Type II or unspecified type diabetes mellitus with neurological manifestations, not stated as uncontrolled Essential hypertension Unspecified essential hypertension [facility]* Diagnosis CKD (chronic kidney disease) stage 5, GFR less than 15 ml/min ([facility])- Primary Chronic kidney disease, Stage V Anemia of renal disease Anemia in chronic kidney disease Hyperkalemia Hyperpotassemia Metabolic acidosis Acidosis Hypocalcemia documented [facility]* Diagnosis Onset Date Resolution Status Inability to walk acute Obesity acute Right leg pain acute Benign essential hypertension chronic History of diabetes mellitus, type II chronic Kidney disease, chronic, stage IV (GFR 15-29 ml/min) [facility] Work Phone: Evaluation note* Diagnosis CKD (chronic kidney disease) stage 5, GFR less than 15 ml/min (HCC) Chronic kidney disease, Stage V Hyperphosphatemia Disorders of phosphorus metabolism [facility]* Diagnosis Onset Date Resolution Status Inability to walk acute Right leg pain acute [facility] Work Phone: Evaluation note* Diagnosis Acute post-operative pain documented [facility]* Diagnosis Pain of right lower extremity- [...] Anxiety state, unspecified [facility] Diagnosis Neuropathy of hand, unspecified laterality- Primary Encounter for drug screening Other specified examination [facility]* Diagnosis Dysuria- Primary [facility]* Diagnosis Dysuria- Primary [facility]* Diagnosis Stress fracture of right tibia, initial encounter- Primary Pain of right lower extremity documented [facility]* Diagnosis Stress fracture of right tibia, initial encounter- Primary documented [facility] encounter [facility]* Diagnosis Right elbow pain Pain in joint, upper arm documented [facility] this encounter [facility]* Diagnosis Stress fracture of right tibia, initial encounter [facility] encounter [facility]* Diagnosis Chronic pain of left knee Pain in joint, lower leg documented [facility] encounter [facility]* Diagnosis Pain of right lower extremity Stress fracture of left tibia, initial encounter [facility]* Diagnosis Screening breast examination Breast screening, unspecified documented in this encounter [facility] note* Diagnosis CKD (chronic kidney disease) stage 5, GFR less than 15 ml/min ([facility]) Chronic kidney disease, Stage V documented in this encounter [facility] note* Diagnosis Intervertebral disc stenosis of neural canal of lumbar region- Primary Spinal stenosis, lumbar region, without neurogenic claudication Stress fracture of right tibia with routine healing, subsequent encounter documented in this encounter [facility] note* Diagnosis Onset Date Resolution Status ESRD (end stage renal disease) on dialysis acute Fracture of right lower extremity acute History of COPD chronic [facility] Work Phone: Evaluation note* Diagnosis Type 2 diabetes, controlled, with neuropathy ([facility]) Type II or unspecified type diabetes mellitus with neurological manifestations, not stated as uncontrolled [facility]* Diagnosis Onset Date Resolution [...] chronic History of tobacco use chron ic [facility] Work Phone: Evaluation note* Diagnosis Onset Date Resolution Status Secondary hyperparathyroidism resolved [facility] Work Phone: Evaluation note* Diagnosis Lung nodules Other nonspecific abnormal finding of lung field documented in this encounter [facility] note* Diagnosis Lung nodules- Primary Other nonspecific abnormal finding of lung field documented in this encounter [facility] note* Diagnosis 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, with long-term current use of insulin ([facility])- Primary Presbyopia Pseudophakia of both eyes Lens replaced by other means documented in this encounter [facility] note* Diagnosis Ingrowing toenail of right foot- Primary Ingrowing nail Neuropathy Mononeuritis of unspecified site Type 2 diabetes, controlled, with neuropathy (HCC) Type II or unspecified type diabetes mellitus with neurological manifestations, not stated as uncontrolled Open wound of toe of right foot Diminished pulses in lower extremity Other symptoms involving cardiovascular system [place]ertoe, bilateral documented in this encounter [facility] note* Diagnosis Encounter for screening mammogram for breast cancer documented in this encounter [facility] note* Diagnosis 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 documented in this encounter [facility] note* Diagnosis 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- Primary documented in this encounter [facility] note* Diagnosis 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- Primary [facility]* Diagnosis 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 [facility]* Diagnosis 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 [facility]* Diagnosis 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- Primary documented in this encounter [facility] note* Diagnosis 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- Primary documented in this encounter [facility] note* Diagnosis 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- Primary [facility]* Diagnosis Pre-operative examination- Primary Preoperative examination, unspecified Mild intermittent asthma without complication Unspecified asthma Bipolar affective disorder, remission status unspecified ([facility]) Anemia, unspecified type Neuropathy Mononeuritis [...] hypercoagulable state ESRD (end stage renal disease) ([facility]) End stage renal disease Pulmonary nodules Other nonspecific abnormal finding of lung field Class 2 severe obesity due to excess calories with serious comorbidity and body mass index (BMI) of 36.0 to 36.9 in adult ([facility]) Hyperkalemia Hyperpotassemia Foot pain, right Pain in limb Acute right ankle pain documented in this encounter [facility] note* Diagnosis Neck pain Cervicalgia Rib pain on right side Chest pain, unspecified Pre-operative examination- Primary Preoperative examination, unspecified Mild intermittent asthma without complication Unspecified asthma Bipolar affective disorder, remission status unspecified ([facility]) Anemia, unspecified type Neuropathy Mononeuritis of unspecified site Gastroesophageal reflux disease, unspecified whether esophagitis present Type 2 diabetes, controlled, with neuropathy ([facility]) Type II or unspecified type diabetes mellitus with neurological manifestations, not stated as uncontrolled H/O gastric bypass Bariatric surgery status Essential hypertension Unspecified essential hypertension Mixed hyperlipidemia Personal history of DVT (deep vein thrombosis) Personal history of venous thrombosis and embolism Hypercoagulable state ([facility]) Primary hypercoagulable state ESRD (end stage renal disease) ([facility]) End stage renal disease Pulmonary nodules Other nonspecific abnormal finding of lung field Class 2 severe obesity due to excess calories with serious comorbidity and body mass index (BMI) of 36.0 to 36.9 in adult ([facility]) Hyperkalemia Hyperpotassemia documented in this encounter [facility] note* Diagnosis Pre-operative examination- Primary Preoperative examination, unspecified Mild intermittent asthma without complication Unspecified asthma Bipolar affective disorder, remission status unspecified ([facility]) Anemia, unspecified type Neuropathy Mononeuritis of unspecified site Gastroesophageal reflux disease, unspecified whether esophagitis present Type 2 diabetes, controlled, with neuropathy ([facility]) Type II or unspecified type diabetes mellitus with neurological manifestations, not stated as uncontrolled H/O gastric bypass Bariatric surgery status Essential hypertension Unspecified essential hypertension Mixed hyperlipidemia Personal history of DVT (deep vein thrombosis) Personal history of venous thrombosis and embolism Hypercoagulable state ([facility]) Primary hypercoagulable state ESRD (end stage renal disease) ([facility]) End stage renal disease Pulmonary nodules Other nonspecific abnormal finding of lung field Class 2 severe obesity due to excess calories with serious comorbidity and body mass index (BMI) of 36.0 to 36.9 in adult ([facility]) Hyperkalemia Hyperpotassemia Pathological fracture of both tibia and fibula of right lower extremity due to other disease with delayed healing, subsequent encounter- Primary Anxiety Anxiety state, unspecified ESRD (end stage renal disease) ([facility]) End stage renal disease Dental infection Acute apical periodontitis of pulpal origin Neuropathy Mononeuritis of unspecified site Mixed hyperlipidemia Encounter for immunization Need for other specified prophylactic vaccination against single bacterial disease Type 2 diabetes mellitus with stage 4 chronic kidney disease, without long-term current use of insulin ([facility]) Gastroesophageal reflux disease, unspecified whether esophagitis present CASSIE (obstructive sleep apnea) Obstructive sleep apnea (adult) (pediatric) [facility] Diagnosis Pre-operative examination- Primary Preoperative examination, unspecified Mild intermittent asthma without complication Unspecified asthma Bipolar affective disorder, remission status unspecified ([facility]) Anemia, unspecified type Neuropathy Mononeuritis of unspecified site Gastroesophageal reflux disease, unspecified whether esophagitis present Type 2 diabetes, controlled, with neuropathy ([facility]) Type II or unspecified type diabetes mellitus with neurological manifestations, not stated as uncontrolled H/O gastric bypass Bariatric surgery status Essential hypertension Unspecified essential hypertension Mixed hyperlipidemia Personal history of DVT (deep vein thrombosis) Personal history of venous thrombosis and embolism Hypercoagulable state ([facility]) Primary hypercoagulable state ESRD (end stage renal disease) ([facility]) End stage renal disease Pulmonary nodules Other nonspecific abnormal finding of lung field Class 2 severe obesity due to excess calories with serious comorbidity and body mass index (BMI) of 36.0 to 36.9 in adult ([facility]) Hyperkalemia Hyperpotassemia Type 2 diabetes, controlled, with neuropathy ([facility])- Primary Type II or unspecified type diabetes mellitus with neurological manifestations, not stated as uncontrolled Primary hypertension Unspecified essential hypertension Mixed hyperlipidemia CASSIE (obstructive sleep apnea) Obstructive sleep apnea (adult) (pediatric) ESRD (end stage renal disease) ([facility]) End stage renal disease Proliferative diabetic retinopathy associated with type 2 diabetes mellitus, unspecified laterality, unspecified proliferative retinopathy type ([facility]) 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 Bipolar affective disorder, remission status unspecified ([facility]) Personal history of DVT (deep vein thrombosis) Personal history of venous thrombosis and embolism documented in this encounter [facility] note* Diagnosis Pre-operative examination- Primary Preoperative examination, unspecified Mild intermittent asthma without complication Unspecified asthma Bipolar affective disorder, remission status unspecified ([facility]) Anemia, unspecified type Neuropathy Mononeuritis [...] (BMI) of 36.0 to 36.9 in adult ([facility]) Hyperkalemia Hyperpotassemia 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- Primary Primary osteoarthritis of left knee Primary localized osteoarthrosis, lower leg [facility]* Diagnosis Pre-operative examination- Primary Preoperative examination, unspecified Mild intermittent asthma without complication Unspecified asthma Bipolar affective disorder, remission status unspecified ([facility]) Anemia, unspecified type Neuropathy Mononeuritis [...] hypercoagulable state ESRD (end stage renal disease) ([facility]) End stage renal disease Pulmonary nodules Other nonspecific abnormal finding of lung field Class 2 severe obesity due to excess calories with serious comorbidity and body mass index (BMI) of 36.0 to 36.9 in adult ([facility]) Hyperkalemia Hyperpotassemia CASSIE (obstructive sleep apnea)- Primary Obstructive sleep apnea (adult) (pediatric) Controlled type 2 diabetes mellitus without complication, without long-term current use of insulin ([facility])- Primary documented in this encounter [facility] note* Diagnosis Pre-operative examination- Primary Preoperative examination, unspecified Mild intermittent asthma without complication Unspecified asthma Bipolar affective disorder, remission status unspecified ([facility]) Anemia, unspecified type Neuropathy Mononeuritis of unspecified site Gastroesophageal reflux disease, unspecified whether esophagitis present Type 2 diabetes, controlled, with neuropathy ([facility]) Type II or unspecified type diabetes mellitus with neurological manifestations, not stated as uncontrolled H/O gastric bypass Bariatric surgery status Essential hypertension Unspecified essential hypertension Mixed hyperlipidemia Personal history of DVT (deep vein thrombosis) Personal history of venous thrombosis and embolism Hypercoagulable state (HCC) Primary hypercoagulable state ESRD (end stage renal disease) ([facility]) End stage renal disease Pulmonary nodules Other nonspecific abnormal finding of lung field Class 2 severe obesity due to excess calories with serious comorbidity and body mass index (BMI) of 36.0 to 36.9 in adult ([facility]) Hyperkalemia Hyperpotassemia Type 2 diabetes, controlled, with neuropathy ([facility])- Primary Type II or unspecified type diabetes mellitus with neurological manifestations, not stated as uncontrolled [facility]* Diagnosis Pre-operative examination- Primary Preoperative examination, unspecified Mild intermittent asthma without complication Unspecified asthma Bipolar affective disorder, remission status unspecified ([facility]) Anemia, unspecified type Neuropathy Mononeuritis of unspecified site Gastroesophageal reflux disease, unspecified whether esophagitis present Type 2 diabetes, controlled, with neuropathy ([facility]) Type II or unspecified type diabetes mellitus with neurological manifestations, not stated as uncontrolled H/O gastric bypass Bariatric surgery status Essential hypertension Unspecified essential hypertension Mixed hyperlipidemia Personal history of DVT (deep vein thrombosis) Personal history of venous thrombosis and embolism Hypercoagulable state ([facility]) Primary hypercoagulable state ESRD (end stage renal disease) ([facility]) End stage renal disease Pulmonary nodules Other nonspecific abnormal finding of lung field Class 2 severe obesity due to excess calories with serious comorbidity and body mass index (BMI) of 36.0 to 36.9 in adult ([facility]) Hyperkalemia Hyperpotassemia Stenosis of arteriovenous graft, 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[facility])- Primary ESRD (end stage renal disease) ([facility]) End stage renal disease documented in this encounter [facility] note* Diagnosis Pre-operative examination- Primary Preoperative examination, unspecified Mild intermittent asthma without complication Unspecified asthma Bipolar affective disorder, remission status unspecified ([facility]) Anemia, unspecified type Neuropathy Mononeuritis of unspecified site Gastroesophageal reflux disease, unspecified whether esophagitis present Type 2 diabetes, controlled, with neuropathy ([facility]) Type II or unspecified type [...] (BMI) of 36.0 to 36.9 in adult ([facility]) Hyperkalemia Hyperpotassemia TIA (transient ischemic attack)- Primary Unspecified transient cerebral ischemia Type 2 diabetes, controlled, with neuropathy ([facility]) Type II or unspecified type diabetes mellitus with neurological manifestations, not stated as uncontrolled Primary hypertension Unspecified essential hypertension Type 2 diabetes mellitus with stage 4 chronic kidney disease, without long-term current use of insulin ([facility]) ESRD (end stage renal disease) ([facility]) End stage renal disease Spinal stenosis of lumbar region, unspecified whether neurogenic claudication present Anxiety Anxiety state, unspecified [facility] Diagnosis Pre-operative examination- Primary Preoperative examination, unspecified Mild intermittent asthma without complication Unspecified asthma Bipolar affective disorder, remission status unspecified ([facility]) Anemia, unspecified type Neuropathy Mononeuritis of unspecified site Gastroesophageal reflux disease, unspecified whether esophagitis present Type 2 diabetes, controlled, with neuropathy ([facility]) Type II or unspecified type diabetes mellitus with neurological manifestations, not stated as uncontrolled H/O gastric bypass Bariatric surgery status Essential hypertension Unspecified essential hypertension Mixed hyperlipidemia Personal history of DVT (deep vein thrombosis) Personal history of venous thrombosis and embolism Hypercoagulable state (HCC) Primary hypercoagulable state ESRD (end stage renal disease) ([facility]) End stage renal disease Pulmonary nodules Other nonspecific abnormal finding of lung field Class 2 severe obesity due to excess calories with serious comorbidity and body mass index (BMI) of 36.0 to 36.9 in adult ([facility]) Hyperkalemia Hyperpotassemia Dental decay- Primary Unspecified dental caries [facility] Diagnosis Pre-operative examination- Primary Preoperative examination, unspecified Mild intermittent asthma without complication Unspecified asthma Bipolar affective disorder, remission status unspecified ([facility]) Anemia, unspecified type Neuropathy Mononeuritis of unspecified site Gastroesophageal reflux disease, unspecified whether esophagitis present Type 2 diabetes, controlled, with neuropathy ([facility]) Type II or unspecified type [...] Hyperkalemia Hyperpotassemia ESRD (end stage renal disease) ([facility])- Primary End stage renal disease Proliferative diabetic retinopathy associated with type 2 diabetes mellitus, unspecified laterality, unspecified proliferative retinopathy type ([facility]) TIA (transient ischemic attack) Unspecified transient cerebral ischemia documented in this encounter [facility] note* Diagnosis Pre-operative examination- Primary Preoperative examination, unspecified Mild intermittent asthma without complication Unspecified asthma Bipolar affective disorder, remission status unspecified ([facility]) Anemia, unspecified type Neuropathy Mononeuritis [...] (BMI) of 36.0 to 36.9 in adult ([facility]) Hyperkalemia Hyperpotassemia Encounter for screening mammogram for breast cancer [facility]* Diagnosis Pre-operative examination- Primary Preoperative examination, unspecified Mild intermittent asthma without complication (HCC) Unspecified asthma Bipolar affective disorder, remission status unspecified ([facility]) Anemia, unspecified type Neuropathy Mononeuritis [...] (BMI) of 36.0 to 36.9 in adult ([facility]) Hyperkalemia Hyperpotassemia Type 2 diabetes, controlled, with neuropathy ([facility])- Primary Type II or unspecified [...] apnea, unspecified type [facility]* Diagnosis Pre-operative examination- Primary Preoperative examination, unspecified Mild intermittent asthma without complication ([facility]) Unspecified asthma Bipolar affective disorder, remission status unspecified ([facility]) Anemia, unspecified type Neuropathy Mononeuritis of unspecified site Gastroesophageal reflux disease, unspecified whether esophagitis present Type 2 diabetes, controlled, with neuropathy ([facility]) Type II or unspecified type [...] (BMI) of 36.0 to 36.9 in adult ([facility]) Hyperkalemia Hyperpotassemia Type 2 diabetes, controlled, with neuropathy ([facility])- Primary Type II or unspecified type diabetes mellitus with neurological manifestations, not stated as uncontrolled [facility]* Diagnosis Pre-operative examination- Primary Preoperative examination, unspecified Mild intermittent asthma without complication ([facility]) Unspecified asthma Bipolar affective disorder, remission status unspecified ([facility]) Anemia, unspecified type Neuropathy Mononeuritis [...] (BMI) of 36.0 to 36.9 in adult ([facility]) Hyperkalemia Hyperpotassemia RLS (restless legs syndrome)- Primary Restless legs syndrome (RLS) Insomnia, unspecified type CASSIE (obstructive sleep apnea) Obstructive sleep apnea (adult) (pediatric) Stage 5 chronic kidney disease on chronic dialysis ([facility]) Diabetes mellitus treated with injections of non-insulin medication ([facility])- Primary [facility] Diagnosis Pre-operative examination- Primary Preoperative examination, unspecified Mild intermittent asthma without complication ([facility]) Unspecified asthma Bipolar affective disorder, remission status unspecified ([facility]) Anemia, unspecified type Neuropathy Mononeuritis of unspecified site Gastroesophageal reflux disease, unspecified whether esophagitis present Type 2 diabetes, controlled, with neuropathy ([facility]) Type II or unspecified type [...] (BMI) of 36.0 to 36.9 in adult ([facility]) Hyperkalemia Hyperpotassemia Diabetes mellitus treated with injections of non-insulin medication ([facility])- Primary Type 2 diabetes, controlled, with neuropathy (HCC) Type II or unspecified type diabetes mellitus with neurological manifestations, not stated as uncontrolled [facility] Diagnosis Pre-operative examination- Primary Preoperative examination, unspecified Mild intermittent asthma without complication (HCC) Unspecified asthma Bipolar affective disorder, remission status unspecified ([facility]) Anemia, unspecified type Neuropathy Mononeuritis [...] hypercoagulable state ESRD (end stage renal disease) ([facility]) End stage renal disease Pulmonary nodules Other nonspecific abnormal finding of lung field Class 2 severe obesity due to excess calories with serious comorbidity and body mass index (BMI) of 36.0 to 36.9 in adult ([facility]) Hyperkalemia Hyperpotassemia 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, with long-term current use of insulin ([facility])- Primary Presbyopia Pseudophakia of both eyes Lens replaced by other means [facility]* Diagnosis Pre-operative examination- Primary Preoperative examination, unspecified Mild intermittent asthma without complication ([facility]) Unspecified asthma Bipolar affective disorder, remission status unspecified ([facility]) Anemia, unspecified type Neuropathy Mononeuritis of unspecified site Gastroesophageal reflux disease, unspecified whether esophagitis present Type 2 diabetes, controlled, with neuropathy ([facility]) Type II or unspecified type diabetes mellitus with neurological manifestations, not stated as uncontrolled H/O gastric bypass Bariatric surgery status Essential hypertension Unspecified essential hypertension Mixed hyperlipidemia Personal history of DVT (deep vein thrombosis) Personal history of venous thrombosis and embolism Hypercoagulable state (HCC) Primary hypercoagulable state ESRD (end stage renal disease) ([facility]) End stage renal disease Pulmonary nodules Other nonspecific abnormal finding of lung field Class 2 severe obesity due to excess calories with serious comorbidity and body mass index (BMI) of 36.0 to 36.9 in adult ([facility]) Hyperkalemia Hyperpotassemia Lung nodules Other nonspecific abnormal finding of lung field [facility] Diagnosis Pre-operative examination- Primary Preoperative examination, unspecified Mild intermittent asthma without complication ([facility]) Unspecified asthma Bipolar affective disorder, remission status unspecified ([facility]) Anemia, unspecified type Neuropathy Mononeuritis [...] Unspecified essential hypertension [facility]* Diagnosis Pre-operative examination- Primary Preoperative examination, unspecified Mild intermittent asthma without complication (HCC) Unspecified asthma Bipolar affective disorder, remission status unspecified ([facility]) Anemia, unspecified type Neuropathy Mononeuritis [...] stage renal disease [facility] Diagnosis Pre-operative examination- Primary Preoperative examination, [...] (BMI) of 36.0 to 36.9 in adult ([facility]) Hyperkalemia Hyperpotassemia Acute exacerbation of chronic obstructive pulmonary disease ([facility])- Primary Obstructive chronic bronchitis with exacerbation Irritable bowel syndrome, unspecified type ESRD (end stage renal disease) ([facility]) End stage renal disease documented in this encounter [facility] note* Diagnosis Pre-operative examination- Primary Preoperative examination, unspecified Mild intermittent asthma without complication ([facility]) Unspecified asthma Bipolar affective disorder, remission status unspecified ([facility]) Anemia, unspecified type Neuropathy Mononeuritis of unspecified site Gastroesophageal reflux disease, unspecified whether esophagitis present Type 2 diabetes, controlled, with neuropathy ([facility]) Type II or unspecified type diabetes mellitus with neurological manifestations, not stated as uncontrolled H/O gastric bypass Bariatric surgery status Essential hypertension Unspecified essential hypertension Mixed hyperlipidemia Personal history of DVT (deep vein thrombosis) Personal history of venous thrombosis and embolism Hypercoagulable state (HCC) Primary hypercoagulable state ESRD (end stage renal disease) ([facility]) End stage renal disease Pulmonary nodules Other nonspecific abnormal finding of lung field Class 2 severe obesity due to excess calories with serious comorbidity and body mass index (BMI) of 36.0 to 36.9 in adult ([facility]) Hyperkalemia Hyperpotassemia Lung nodules- Primary Other nonspecific abnormal finding of lung field Mild intermittent asthma without complication ([facility]) Unspecified asthma ESRD (end stage renal disease) on dialysis ([facility]) End stage renal disease documented in this encounter [facility] note* Diagnosis Pre-operative examination- Primary Preoperative examination, unspecified Mild intermittent asthma without complication ([facility]) Unspecified asthma Bipolar affective disorder, remission status unspecified ([facility]) Anemia, unspecified type Neuropathy Mononeuritis of unspecified site Gastroesophageal reflux disease, unspecified whether esophagitis present Type 2 diabetes, controlled, with neuropathy ([facility]) Type II or unspecified type diabetes mellitus with neurological manifestations, not stated as uncontrolled H/O gastric bypass Bariatric surgery status Essential hypertension Unspecified essential hypertension Mixed hyperlipidemia Personal history of DVT (deep vein thrombosis) Personal history of venous thrombosis and embolism Hypercoagulable state (HCC) Primary hypercoagulable state ESRD (end stage renal disease) ([facility]) End stage renal disease Pulmonary nodules Other nonspecific abnormal finding of lung field Class 2 severe obesity due to excess calories with serious comorbidity and body mass index (BMI) of 36.0 to 36.9 in adult ([facility]) Hyperkalemia Hyperpotassemia RLS (restless legs syndrome) Restless legs syndrome (RLS) Insomnia, unspecified type documented in this encounter [facility] note* Diagnosis Pre-operative examination- Primary Preoperative examination, unspecified Mild intermittent asthma without complication (HCC) Unspecified asthma Bipolar affective disorder, remission status unspecified ([facility]) Anemia, unspecified type Neuropathy Mononeuritis of unspecified site Gastroesophageal reflux disease, unspecified whether esophagitis present Type 2 diabetes, controlled, with neuropathy ([facility]) Type II or unspecified type diabetes mellitus with neurological manifestations, not stated as uncontrolled H/O gastric bypass Bariatric surgery status Essential hypertension Unspecified essential hypertension Mixed hyperlipidemia Personal history of DVT (deep vein thrombosis) Personal history of venous thrombosis and embolism Hypercoagulable state ([facility]) Primary hypercoagulable state ESRD (end stage renal disease) ([facility]) End stage renal disease Pulmonary nodules Other nonspecific abnormal finding of lung field Class 2 severe obesity due to excess calories with serious comorbidity and body mass index (BMI) of 36.0 to 36.9 in adult ([facility]) Hyperkalemia Hyperpotassemia Anxiety Anxiety state, unspecified documented in this encounter [facility] note* Diagnosis Pre-operative examination- Primary Preoperative examination, unspecified Mild intermittent asthma without complication ([facility]) Unspecified asthma Bipolar affective disorder, remission status unspecified ([facility]) Anemia, unspecified type Neuropathy Mononeuritis of unspecified site Gastroesophageal reflux disease, unspecified whether esophagitis present Type 2 diabetes, controlled, with neuropathy ([facility]) Type II or unspecified type diabetes mellitus with neurological manifestations, not stated as uncontrolled H/O gastric bypass Bariatric surgery status Essential hypertension Unspecified essential hypertension Mixed hyperlipidemia Personal history of DVT (deep vein thrombosis) Personal history of venous thrombosis and embolism Hypercoagulable state (HCC) Primary hypercoagulable state ESRD (end stage renal disease) ([facility]) End stage renal disease Pulmonary nodules Other nonspecific abnormal finding of lung field Class 2 severe obesity due to excess calories with serious comorbidity and body mass index (BMI) of 36.0 to 36.9 in adult ([facility]) Hyperkalemia Hyperpotassemia Lung nodules- Primary Other nonspecific abnormal finding of lung field Abnormal CT scan, lung Other nonspecific abnormal finding of lung field [facility] Pre-operative examination- Primary Preoperative examination, unspecified Mild intermittent asthma without complication ([facility]) Unspecified asthma Bipolar affective disorder, remission status unspecified ([facility]) Anemia, unspecified type Neuropathy Mononeuritis of unspecified site Gastroesophageal reflux disease, unspecified whether esophagitis present Type 2 diabetes, controlled, with neuropathy ([facility]) Type II or unspecified type diabetes mellitus with neurological manifestations, not stated as uncontrolled H/O gastric bypass Bariatric surgery status Essential hypertension Unspecified essential hypertension Mixed hyperlipidemia Personal history of DVT (deep vein thrombosis) Personal history of venous thrombosis and embolism Hypercoagulable state ([facility]) Primary hypercoagulable state ESRD (end stage renal disease) ([facility]) End stage renal disease Pulmonary nodules Other nonspecific abnormal finding of lung field Class 2 severe obesity due to excess calories with serious comorbidity and body mass index (BMI) of 36.0 to 36.9 in adult ([facility]) Hyperkalemia Hyperpotassemia RLS (restless legs syndrome) Restless legs syndrome (RLS) Insomnia, unspecified type [facility] Additional Instructions take half of the labetalol, so will take 50 mg twice a day instead of 100 mg twice a day. Follow-up with your PCP in 2 days and your hazardous substances scientist in the next few days. [facility] Work Phone: Hospital Discharge instructions Additional Instructions Return tomorrow to have an ultrasound of your right leg to rule out a blood clot. Please follow-up with your PCP or orthopedic doctor.[facility] Work Phone: Hospital Discharge instructions Additional Instructions Call your orthopedic surgeon for close follow-up, recheck, repeat x-rays.[facility] Work Phone: Hospital Discharge instructions Additional Instructions Ice to all sore areas. Tylenol Motrin for pain. Your x-rays today showed no new injuries. Healing fractures of your tibia and fibula. Follow-up with your doctors as needed.[facility] Work Phone: Hospital Discharge instructionsAdditional Instructions Follow-up with your doctor to ensure you are improving. Your tests today were unremarkable. I do not know the specific cause of your pain. Follow-up with your doctor for further evaluation. May want to consider discussing with them outpatient stress testing. Return the emergency department if you are feeling a lot worse.[facility] Work Phone: Reason for referral (narrative)* Diagnostic Procedure Only (Routine) - Pending Review Specialty Diagnoses / Procedures Referred By Allison t Referred To Contact [facility] IM[facility] Diagnoses Screening breast examination Procedures MARYLU SCREENING SCREENING MAMMOGRAPHY BI 2-VIEW BREAST INC CAD Ignacio Cheatham MD [address] [place] [address] [facility] [address] [place] [phone] Referral ID Status Reason Start Date Expiration Date Visits Requested Visits Authorized [id number] Pending Review Auto-Generat ed Referral 06/26/2021 07/26/2022 [address] [facility] for referral (narrative)* Outpatient Procedure (Routine) - Pending Review Specialty Diagnoses / Procedures Referred By Ximenaac t Referred To Contact [facility] Diagnoses CKD (chronic kidney disease) stage 5, GFR less than 15 ml/min (HCC) Procedures UPPER EXT MAP FOR DIALYSIS ACCESS [facility] VESSEL MAPPING HEMO ACCESS Jonathan Valenzuela MD [address] [place] [address] [facility] [address] [place] [address] Referral ID Status Reason Start Date Expiration Date Visits Requested Visits Authorized [id number] Pending Review Auto-Generat ed Referral 08/13/2021 08/13/2022 [address] [facility] for referral (narrative)* Diagnostic Procedure Only (Urgent) - Closed Specialty Diagnoses / Procedures Referred By Ximenaac t Referred To Contact [facility]LECULAR [facility] FUN[facility] Diagnoses Pre-transplant evaluation for chronic kidney disease Pre-operative cardiovascular examination Encounter for preprocedural cardiovascular examination Procedures NM CARDIAC PERF STRESS/PHARM MYOCARDIAL SPECT MULTIPLE STUDIES Luis Mejia MD [address] [place] [address] [facility] [address] [place] [address] Referral ID Status Reason Start Date Expiration Date V isits Requested Visits Authorized [id number] Closed Auto-Generated Referral Patient Cleared - INN Insurance Found 07/19/2021 08/17/2021 [address] [facility] for referral (narrative)* Diagnostic Procedure Only (Routine) - Pending Review Specialty Diagnoses / Procedures Referred By Contac t Referred To Contact XR IMAGING Diagnoses CKD (chronic kidney disease) stage 5, GFR less than 15 ml/min (HCC) Procedures XR CHEST 1V FRONTAL RADIOLOGIC EXAM CHEST SINGLE VIEW Goldy Hunter DO [address] [place] [address] X[facility] Imaging Referral ID Status Reason Start Date Expiration Date Visits Requested Visits Authorized [id number] Pending Review Auto-Generat ed Referral 08/05/2022 09/04/2023 [address] [facility] for referral (narrative)* Diagnostic Procedure Only (Routine) - Closed Specialty Diagnoses / Procedures Referred By Contac t Referred To Contact XR IMAGING Diagnoses Pain of right lower extremity Stress fracture of right tibia, initial encounter Procedures XR TIBIA FIBULA 2V AP/LAT RIGHT RADIOLOGIC EXAMINATION TIBIA & FIBULA 2 VIEWS Reagan Riggs MD [address] [place] [address] Xr Imaging [id number] Referral ID Status Reason Start Date Expiration Date V isits Requested Visits Authorized [id number] Closed Auto-Generate d Referral 11/10/2022 12/10/2023 [address] [facility] for referral (narrative)* Diagnostic Procedure Only (Routine) - Pending Review Specialty Diagnoses / Procedures Referred By Contac t Referred To Contact XR IMAGING Diagnoses Stress fracture of right tibia, initial encounter Procedures XR TIBIA FIBULA 2V AP/LAT RIGHT RADIOLOGIC EXAMINATION TIBIA & FIBULA 2 VIEWS Reagan Riggs MD [address] [place] [address] [place] [address] Referral ID Status Reason Start Date Expiration Date Visits Requested Visits Authorized [id number] Pending Review Auto-Generat ed Referral 01/09/2024 [address] [facility] for referral (narrative)* Diagnostic Procedure Only (Routine) - Closed Specialty Diagnoses / Procedures Referred By Contac t Referred To Contact XR IMAGING Diagnoses Right elbow pain Procedures XR ELBOW GENERAL 2V AP/LAT RIGHT RADEX ELBOW 2 VIEWS Ignacio Cheatham MD [address] [place] [address] [place] [address] Referral ID Status Reason Start Date Expiration Date V isits Requested Visits Authorized [id number] Closed Auto-Generate d Referral 08/11/2022 09/10/2023 [address] [facility] for referral (narrative)* Diagnostic Procedure Only (Routine) - Closed Specialty Diagnoses / Procedures Referred By Contac t Referred To Contact XR IMAGING Diagnoses Stress fracture of right tibia, initial encounter Procedures XR TIBIA FIBULA 2V AP/LAT RIGHT RADIOLOGIC EXAMINATION TIBIA & FIBULA 2 VIEWS Reagan Riggs MD [address] [facility] [address] [place] [address] Referral ID Status Reason Start Date Expiration Date V isits Requested Visits Authorized [id number] Closed Auto-Generate d Referral 12/10/2022 01/09/2024 [address] [facility] for referral (narrative)* Diagnostic Procedure Only (Routine) - Closed Specialty Diagnoses / Procedures Referred By Contac t Referred To Contact XR IMAGING Diagnoses Chronic pain of left knee Procedures XR KNEE GENERAL 4V AP BOTH/PA BOTH/LAT/MERC LEFT RADIOLOGIC EXAM KNEE COMPLETE 4/MORE VIEWS Ignacio Cheatham MD [address] [place] [address] [place] [address] Referral ID Status Reason Start Date Expiration Date V isits Requested Visits Authorized [id number] Closed Auto-Generate d Referral 03/21/2022 04/20/2023 [address] [facility] for referral (narrative)* Diagnostic Procedure Only (Routine) - Closed Specialty Diagnoses / Procedures Referred By Contac t Referred To Contact XR IMAGING Diagnoses Pain of right lower extremity Stress fracture of right tibia, initial encounter Procedures XR TIBIA FIBULA 2V AP/LAT RIGHT RADIOLOGIC EXAMINATION TIBIA & FIBULA 2 VIEWS Reagan Riggs MD [address] [place] [address] Xr Imaging [id number] Referral ID Status Reason Start Date Expiration Date V isits Requested Visits Authorized [id number] Closed Auto-Generate d Referral 11/10/2022 12/10/2023 [address] [facility] for referral (narrative)* Diagnostic Procedure Only (Routine) - Closed Specialty Diagnoses / Procedures Referred By Contac t Referred To Contact [facility] IM[facility] Diagnoses Screening breast examination Procedures MARYLU SCREENING SCREENING MAMMOGRAPHY BI 2-VIEW BREAST INC CAD Ignacio Cheatham MD [address] [place] [address] [facility] Imaging [address] [place] [address] Referral ID Status Reason Start Date Expiration Date V isits Requested Visits Authorized [id number] Closed Auto-Generate d Referral 06/26/2021 07/26/2022 [address] [facility] for referral (narrative)* Diagnostic Procedure Only (Routine) - Closed Specialty Diagnoses / Procedures Referred By Contac t Referred To Contact XR IMAGING Diagnoses CKD (chronic kidney disease) stage 5, GFR less than 15 ml/min (HCC) Procedures XR CHEST 1V FRONTAL RADIOLOGIC EXAM CHEST SINGLE VIEW Goldy Hunter DO [address] [place] [address] Xr Imaging [id number] Referral ID Status Reason Start Date Expiration Date V isits Requested Visits Authorized [id number] Closed Auto-Generate d Referral 08/05/2022 09/04/2023 [address] [facility] for referral (narrative)* Outpatient Procedure (Routine) [...] 2 LEVEL [address] [place] [address] [facility] [place] [address] [place] [address] Referral ID Status Reason Start Date Expiration Date Visits Requested Visits Authorized [id number] Pending Review Auto-Generat ed Referral 05/15/2023 05/14/2024 [...] 3 VIEWS Frank [address] [place] [address] Xr Imaging [id number] Referral ID Status Reason Start Date Expiration Date Visits Requested Visits Authorized [id number] Pending Review Auto-Generat ed Referral 05/15/2023 06/13/2024 [address] [facility] for referral (narrative)* Diagnostic Procedure Only (Routine) - Pending Review Specialty Diagnoses / Procedures Referred By Allison t Referred To Contact [facility] IM[facility] Diagnoses Encounter for screening mammogram for breast cancer Procedures MARYLU SCREENING SCREENING MAMMOGRAPHY BI 2-VIEW BREAST INC CAD Ignacio Cheatham MD [address] [place] [address] [facility] [address] [place] [address] Referral ID Status Reason Start Date Expiration Date Visits Requested Visits Authorized [id number] Pending Review Auto-Generat ed Referral 05/13/2023 06/11/2024 [address] 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 for referral (narrative)* Diagnostic Procedure Only (Urgent) - Closed Specialty Diagnoses / Procedures Referred By Contac t Referred To Contact XR IMAGING Diagnoses Acute right ankle pain Procedures XR ANKLE GENERAL 3V AP/LAT/OBL RIGHT RADEX ANKLE COMPLETE MINIMUM 3 VIEWS Sha Ray APRN.[employer] P[employer]ER [address] [place] [address] [place] [address] Referral ID Status Reason Start Date Expiration Date V isits Requested Visits Authorized [id number] Closed Auto-Generate d Referral 03/17/2023 04/15/2024 1 1 * Diagnostic Procedure Only (Urgent) - Closed Specialty Diagnoses / Procedures Referred By Contac t Referred To Contact XR IMAGING Diagnoses Foot pain, right Procedures XR FOOT GENERAL 3V AP/LAT/OBL RIGHT RADEX FOOT COMPLETE MINIMUM 3 VIEWS Sha Ray APRN.[employer]ER [address] [place] [address] [place] [address] Referral ID Status Reason Start Date Expiration Date V isits Requested Visits Authorized [id number] Closed Auto-Generate d Referral 03/17/2023 04/15/2024 1 [facility] Diagnostic Procedure Only (Routine) - Closed Specialty Diagnoses / Procedures Referred By Contac t Referred To Contact XR IMAGING Diagnoses Rib pain on right side Procedures XR RIBS/CHEST 3V AP RIB/OBLS/CXR RT X-RAY RIBS, CHEST 3+ VW Ignacio Cheatham MD [address] [place] [address] [place] [address] Referral ID Status Reason Start Date Expiration Date V isits Requested Visits Authorized [id number] Closed Auto-Generate d Referral 10/31/2020 11/30/2021 1 1 * Diagnostic Procedure Only (Routine) - Closed Specialty Diagnoses / Procedures Referred By Contac t Referred To Contact XR IMAGING Diagnoses Neck pain Procedures XR CERV OTHER 4V AP/LAT/OBL X-RAY NECK MINIMUM 4 VIEWS Ignacio Cheatham MD [address] [place] [address] [place] [address] Referral ID Status Reason Start Date Expiration Date V isits Requested Visits Authorized Closed Auto-Generate d Referral 10/31/2020 11/30/2021 [address] [facility] for referral (narrative)* Diagnostic Procedure Only (Routine) - Authorized Specialty Diagnoses / Procedures Referred By Contac t Referred To Contact [facility] Diagnoses CASSIE (obstructive sleep apnea) Procedures HOME SLEEP APNEA TEST (HSAT) SLEEP STD AIRFLOW HRT RATE&O2 SAT EFFORT UNATT Ignacio Cheatham MD [address] [place] [address] [facility] [place] [address] [place] [id number] Referral ID Status Reason Start Date Expiration Date Visits Requested Visits Authorized [id number] Authorized Auto-Generat ed Referral 4 03/01/2024 1 1 * Consult, Test, Treat (Routine) - Authorized Specialty Diagnoses / Procedures Referred By Allison t Referred To Contact Endocrinology Diagnoses Type 2 diabetes, controlled, with neuropathy (HCC) Procedures CONSULT TO ENDOCRINOLOGY OFFICE/OUTPATIENT NEW HIGH MDM 60 MINUTES Ignacio Cheatham MD [address] [place] [address] Referral ID Status Reason Start Date Expiration Date Visits Requested Visits Authorized [id number] Authorized PCP Requested Referral 4 12/24/2024 [address] 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 for referral (narrative)No reason for referral information availableWOhio[facility] Work Phone: Reason for visit Narrative* Diagnostic Procedure Only (Routine) - Closed Specialty Diagnoses / Procedures Referred By Allison t Referred To Contact XR IMAGING Diagnoses Right elbow pain Procedures XR ELBOW GENERAL 2V AP/LAT RIGHT RADEX ELBOW 2 VIEWS Ignacio Cheatham MD [address] [place] [address] Xr Imaging [id number] Referral ID Status Reason Start Date Expiration Date V isits Requested Visits Authorized [id number] Closed Auto-Generate d Referral 08/11/2022 09/10/2023 [address] [facility] for visit Narrative* Diagnostic Procedure Only (Routine) - Closed Specialty Diagnoses / Procedures Referred By Allison t Referred To Contact XR IMAGING Diagnoses Stress fracture of right tibia, initial encounter Procedures XR TIBIA FIBULA 2V AP/LAT RIGHT RADIOLOGIC EXAMINATION TIBIA & FIBULA 2 VIEWS Reagan Riggs MD [address] [place] [address] [place] [address] Referral ID Status Reason Start Date Expiration Date V isits Requested Visits Authorized [id number] Closed Auto-Generate d Referral 12/10/2022 01/09/2024 [address] [facility] for visit Narrative* Diagnostic Procedure Only (Routine) - Closed Specialty Diagnoses / Procedures Referred By Contac t Referred To Contact XR IMAGING Diagnoses Chronic pain of left knee Procedures XR KNEE GENERAL 4V AP BOTH/PA BOTH/LAT/MERC LEFT RADIOLOGIC EXAM KNEE COMPLETE 4/MORE VIEWS Ignacio Cheatham MD [address] [place] [address] [place] [address] Referral ID Status Reason Start Date Expiration Date V isits Requested Visits Authorized [id number] Closed Auto-Generate d Referral 03/21/2022 04/20/2023 [address] [facility] for visit Narrative* Diagnostic Procedure Only (Routine) - Closed Specialty Diagnoses / Procedures Referred By Contac t Referred To Contact XR IMAGING Diagnoses Pain of right lower extremity Stress fracture of right tibia, initial encounter Procedures XR TIBIA FIBULA 2V AP/LAT RIGHT RADIOLOGIC EXAMINATION TIBIA & FIBULA 2 VIEWS Reagan Riggs MD [address] [place] [address] [place] [address] Referral ID Status Reason Start Date Expiration Date V isits Requested Visits Authorized [id number] Closed Auto-Generate d Referral 11/10/2022 12/10/2023 [address] [facility] for visit Narrative* Diagnostic Procedure Only (Routine) - Closed Specialty Diagnoses / Procedures Referred By Contac t Referred To Contact BR IMAGING Diagnoses Screening breast examination Procedures MARYLU SCREENING SCREENING MAMMOGRAPHY BI 2-VIEW BREAST INC CAD Ignacio Cheatham MD [address] [place] [address] [facility] Imaging [address] [place] [address] Referral ID Status Reason Start Date Expiration Date V isits Requested Visits Authorized [id number] Closed Auto-Generate d Referral 06/26/2021 07/26/2022 [address] [facility] for visit Narrative* Diagnostic Procedure Only (Routine) - Closed Specialty Diagnoses / Procedures Referred By Contac t Referred To Contact XR IMAGING Diagnoses CKD (chronic kidney disease) stage 5, GFR less than 15 ml/min (HCC) Procedures XR CHEST 1V FRONTAL RADIOLOGIC EXAM CHEST SINGLE VIEW Goldy Hunter DO [address] [place] [id number] [place] [address] Referral ID Status Reason Start Date Expiration Date V isits Requested Visits Authorized [id number] Closed Auto-Generate d Referral 08/05/2022 09/04/2023 [address] [facility] for visit Narrative* Diagnostic Procedure Only (Urgent) - Closed Specialty Diagnoses / Procedures Referred By Contac t Referred To Contact XR IMAGING Diagnoses Foot pain, right Procedures XR FOOT GENERAL 3V AP/LAT/OBL RIGHT RADEX FOOT COMPLETE MINIMUM 3 VIEWS Sha Ray, MOLDER TRIMMER.[employer] PAVER [address] [place] [id number] Xr Imaging [id number] Referral ID Status Reason Start Date Expiration Date V isits Requested Visits Authorized [id number] Closed Auto-Generate d Referral 03/17/2023 04/15/2024 [address] [facility] for visit Narrative* Diagnostic Procedure Only (Urgent) - Closed Specialty Diagnoses / Procedures Referred By Contac t Referred To Contact XR IMAGING Diagnoses Foot pain, left Procedures XR FOOT GENERAL 3V AP/LAT/OBL LEFT RADEX FOOT COMPLETE MINIMUM 3 VIEWS Jimmy Rabago MOLDER TRIMMER.BLOCK PAVER [address] [place] [address] Xr Imaging [id number] Referral ID Status Reason Start Date Expiration Date V isits Requested Visits Authorized [id number] Closed Auto-Generate d Referral 02/18/2022 03/20/2023 [address] [facility] for visit Narrative* Diagnostic Procedure Only (Routine) - Closed Specialty Diagnoses / Procedures Referred By Contac t Referred To Contact XR IMAGING Diagnoses Rib pain on right side Procedures XR RIBS/CHEST 3V AP RIB/OBLS/CXR RT X-RAY RIBS, CHEST 3+ VW Ignacio Cheatham MD [address] [place] [address] [place] [address] Referral ID Status Reason Start Date Expiration Date V isits Requested Visits Authorized [id number] Closed Auto-Generate d Referral 10/31/2020 11/30/2021 1 1 [facility] Summary Purpose Family History No Family History [...] Documents on File Type Date Recorded Patient Caregiver Assisted Living Expl anation Advance Directive(s) Advance Directive(s) 05/03/2018 10:46 PM Advance Directive(s) 07/02/2015 7:09 AM Documents on File Type Date Recorded Patient Caregiver Assisted Living Expl anation Advance Directive(s) Advance Directive(s) 05/03/2018 10:46 PM Advance Directive(s) 07/02/2015 7:09 AM Advance Directive Response Recorded Date/ Time Living Will No July 29, 2021 9 :12pm Power of [employer] Hand No July 29, 2021 9:12pm Latest Code [...] September 07, 2022 1 :49pm Power of [employer] Hand No September 07, 2022 1:49pm Latest Code Status on File Code Status Date Activated Date Inactivated Comments Full Code 07/31/2022 9:45 PM 08/04/2022 8:52 PM Question Answer Comments Full Code Order Discussed With: Patient Advance Directive Response Recorded Date/ Time Living Will No September 10, 2022 4:13am Power of [employer] Hand No September 10 4:13am Advance Directive Response Recorded Date/ Time Name of Medical Power of [employer]working [employer] Hand HALLE BOSS October 15, 2022 5:33pm Living Will No October 15 5:33pm Power of [employer] Hand Yes October 15 023 5:33pm Latest Code Status on File Code Status Date Activated Date Inactivated Comments Full Code 07/31/2022 9:45 PM 08/04/2022 8:52 PM Question Answer Comments Full Code Order Discussed With: Patient Advance Directive Response Recorded Date/ Time Name of Medical Power of [employer]working [employer] Hand halle barragan, mell sanchez October 30, 2022 7:22am Living Will Yes October 30 7:22am Power of [employer] Hand Yes October 30 023 7:22am Name of Medical Power of [employer]working [employer] Hand HALLEYoanna BARRAGAN October 15, 2022 5:33pm Latest Code Status on File Code Status Date Activated Date Inactivated Comments Full Code 07/31/2022 9:45 PM 08/04/2022 8:52 PM Question Answer Comments Full Code Order Discussed With: Patient Advance Directive Response Recorded Date/ Time Name of Medical Power of [employer] Hand mell lundy October 30, 2022 6:22am Name of Medical Power of [employer] Hand ALONDRA MARYS- SISTER January 13, 2023 12:35pm Living Will Yes January 13, 2 023 12:35pm Power of [employer] Hand Yes January 13, 2023 12:35pm Name of Medical Power of [employer] Hand HALLE BOSS October 15, 2022 4:33pm Advance Directive Response Recorded Date/ Time Name of Medical Power of [employer]working [employer] Hand mell lundy October 30, 2022 6:22am Name of Medical Power of [employer] Hand ALONDRA BOSS- SISTER January 13, 2023 12:35pm Name of Medical Power of [employer] Hand Halle Marys January 15, 2023 1:53pm Living Will Yes January 15, 2 023 1:53pm Power of [employer] Hand Yes January 15, 2023 1:53pm Name of Medical Power of [employer] Hand HALLE BOSS October 15, 2022 4:33pm Advance Directive Response Recorded Date/ Time Name of Medical Power of [employer]working [employer] Hand halle barragan, mell rta laura October 30, 2022 6:22am Name of Medical Power of [employer] Hand ALONDRA MARYS- SISTER January 13, 2023 12:35pm Name of Medical Power of [employer]working [employer] Hand Halle Boss January 15, 2023 1:53pm Living Will No January 19, 2 023 7:16am Power of [employer] Hand No January 19, 2023 7:16am Name of Medical Power of [employer]working [employer] Hand HALLE BOSS October 15, 2022 4:33pm Advance Directive Response Recorded Date/ Time Name of Medical Power of [employer]working [employer] Hand halleyoanna barragan, be rta sanchez October 30, 2022 6:22am Name of Medical Power of [employer] Hand ALONDRA MARYS- SISTER January 13, 2023 12:35pm Name of Medical Power of [employer] Hand Halle Boss January 15, 2023 1:53pm Living Will No January 19 2 023 4:31pm Power of [employer] Hand No January 19, 2023 4:31pm Name of Medical Power of [employer] Hand HALLE BOSS October 15, 2022 4:33pm Advance Directive Response Recorded Date/ Time Name of Medical Power of [employer]working [employer] Hand halleyoanna barragan, be rta sanchez October 30, 2022 6:22am Name of Medical Power of [employer] Hand ALONDRA MARYS- SISTER January 13, 2023 12:35pm Name of Medical Power of [employer] Hand Halle Boss January 15, 2023 1:53pm Living Will No February 04 10:52am Power of [employer] Hand No February 04, 2023 10:52am Name of Medical Power of [employer]working [employer] Hand HALLE BOSS October 15, 2022 4:33pm Advance Directive Response Recorded Date/ Time Name of Medical Power of [employer]working [employer] Hand ALONDRA HERNANDEZS- SISTER January 13, 2023 12:35pm Name of Medical Power of [employer]working [employer] Hand Halle Boss January 15, 2023 1:53pm Name of Medical Power of [employer] Hand SISTER HALLE March 09, 2023 9:37am Living Will Yes March 09 9:37am Power of [employer] Hand Yes March 09 9:37am Latest Code Status [...] Date/ Time Name of Medical Power of [employer] Hand SISTER HALLE March 09, 2023 10:37am Living Will No June 04, 2023 10:31am Power of [employer] Hand No June 03 10:31am Advance Directive Response Recorded Date/ Time Name of Medical Power of [employer]working [employer] Hand SISTER AHLLE March 09, 2023 10:37am Name of Medical Power of [employer] Hand Halle Barragan June 29, 2023 7:45pm Living Will Yes June 29, 2023 7:45pm Power of [employer] Hand Yes June 28 7:45pm Date Activated Date [...] Do you have a Healthcare Power of [employer]working [employer] Hand? Yes September 06, 2024 6:43pm Reason for Referral Specialty Diagnoses / Procedures Referred By Allison t Referred To Contact CT IMAGING Diagnoses Pre-transplant evaluation for kidney transplant Procedures CT ABD/PEL WO IVCON CT ABD & PELVIS W/O CONTRAST Linda Livingston MD [address] [place] [address] Ct Imaging Referral ID Status Reason Start Date Expiration Date V isits Requested Visits Authorized [id number] Closed Auto-Generated Referral Patient Cleared - INN Insurance Found 06/20/2021 07/19/2021 1 1 Specialty Diagnoses / Procedures Referred By Contac t Referred To Contact Vascular Surgery Diagnoses Stage 5 chronic kidney disease not on chronic dialysis (HCC) Procedures CONSULT TO VASCULAR SURGERY OFFICE/OUTPATIENT [facility] 60-74 MINUTES Fab Cochran, MOLDER TRIMMER.BLOCK PAVER [address] [place] [address] Referral ID Status Reason Start Date Expiration Date Visits Requested Visits Authorized [id number] Authorized PCP Requested Referral 08/01/2021 07/30/2022 1 1 Specialty Diagnoses / Procedures Referred By Contac t Referred To Contact CT IMAGING Diagnoses Pre-transplant evaluation for chronic kidney disease Lung nodules Procedures CT CHEST WO IVCON DIAGNOSTIC COMPUTED TOMOGRAPHY THORAX W/O CNTRST Luis Mejia MD [address] [place] [address] Ct Imaging Referral ID Status Reason Start Date Expiration Date V isits Requested Visits Authorized [id number] Closed Auto-Generated Referral Patient Cleared - INN Insurance Found 07/19/2021 08/17/2021 1 1 Specialty Diagnoses / Procedures Referred By Contac t Referred To Contact Diagnoses Poorly controlled type 2 diabetes mellitus (HCC) Procedures CONSULT TO DIABETES EDUCATION OFFICE/OUTPATIENT [facility] 60-74 MINUTES Rojelio Clark MD [address] [place] [address] Referral ID Status Reason Start Date Expiration Date Visits Requested Visits Authorized [id number] Authorized PCP Requested Referral 10/02/2021 10/02/2022 1 1 Specialty Diagnoses / Procedures Referred By Contac t Referred To Contact Nutrition Diagnoses Poorly controlled type 2 diabetes mellitus (HCC) Procedures CONSULT TO NUTRITION THERAPY OFFICE/OUTPATIENT [facility] 60-74 MINUTES Rojelio Clark MD [address] [place] [address] Referral ID Status Reason Start Date Expiration Date Visits Requested Visits Authorized [id number] Authorized PCP Requested Referral 10/28/2021 10/28/2022 1 1 Specialty Diagnoses / Procedures Referred By Contac t Referred To Contact Nutrition Diagnoses CKD (chronic kidney disease) stage 5, GFR less than 15 ml/min (HCC) Procedures CONSULT TO NUTRITION THERAPY OFFICE/OUTPATIENT [facility] 60-74 MINUTES Fab Cochran, MOLDER TRIMMER.BLOCK PAVER [id number] [place] [id number] Referral ID Status Reason Start Date Expiration Date Visits Requested Visits Authorized [id number] Authorized PCP Requested Referral 11/27/2021 11/27/2022 1 1 Specialty Diagnoses / Procedures Referred By Contac t Referred To Contact Diagnoses Anemia of renal disease Procedures CONSULT TO HEMATOLOGY/ONCOLOGY OFFICE/OUTPATIENT [facility] 60-74 MINUTES Fab Cochran, MOLDER TRIMMER.BLOCK PAVER [id number] [place] [id number] Referral ID Status Reason Start Date Expiration Date Visits Requested Visits Authorized [id number] Authorized PCP Requested Referral 12/05/2021 12/04/2022 1 1 Specialty Diagnoses / Procedures Referred By Contac t Referred To Contact Podiatry Diagnoses Foot pain, left Procedures CONSULT TO PODIATRY OFFICE/OUTPATIENT [facility] 60-74 MINUTES Jimmy Rabago, PATRICE.BLOCK PAVER [address] [place] [address] Referral ID Status Reason Start Date Expiration Date Visits Requested Visits Authorized [id number] Authorized PCP Requested Referral 2 02/18/2023 1 1 Specialty Diagnoses / Procedures Referred By Contac t Referred To Contact XR IMAGING Diagnoses Foot pain, left Procedures XR FOOT GENERAL 3V AP/LAT/OBL LEFT RADEX FOOT COMPLETE MINIMUM 3 VIEWS Jimmy Rabago APRN.BLOCK PAVER [address] [place] [address] Xr Imaging Referral ID Status Reason Start Date Expiration Date V isits Requested Visits Authorized [id number] Closed Auto-Generate d Referral 02/18/2022 03/20/2023 1 1 Specialty Diagnoses / Procedures Referred By Contac t Referred To Contact CT IMAGING Diagnoses Chronic pain of left knee Procedures CT KNEE WO IVCON LEFT CT LOWER EXTREMITY W/O CONTRAST MATERIAL Dakota Rajput MD [address] [address] [address] Imaging Referral ID Status Reason Start Date Expiration Date Visits Requested Visits Authorized [id number] Pending Review Auto-Generat ed Referral 06/12/2022 07/12/2023 1 1 Specialty Diagnoses / Procedures Referred By Contac t Referred To Contact Orthopedics Diagnoses Pain of right lower extremity Procedures CONSULT TO ORTHOPAEDICS OFFICE/OUTPATIENT [facility] 60-74 MINUTES Ignacio Cheatham MD [address] [place] [address] Referral ID Status Reason Start Date Expiration Date Visits Requested Visits Authorized [id number] Authorized PCP Requested Referral 10/20/2022 10/20/2023 1 1 Specialty Diagnoses / Procedures Referred By Contac t Referred To Contact Pain Management Diagnoses Intervertebral disc stenosis of neural canal of lumbar region Procedures CONSULT TO PAIN MGT OFFICE/OUTPATIENT [facility] 60-74 MINUTES Reagan Riggs MD [address] [place] [address] Referral ID Status Reason Start Date Expiration Date Visits Requested Visits Authorized [id number] Authorized PCP Requested Referral 3 12/15/2023 1 1 Specialty Diagnoses / Procedures Referred By Contac t Referred To Contact CT IMAGING Diagnoses Lung nodules Procedures CT CHEST WO IVCON DIAGNOSTIC COMPUTED TOMOGRAPHY THORAX W/O CNTRST Ignacio Cheatham MD [address] [place] [address] [place] [id number] Referral ID Status Reason Start Date Expiration Date Visits Requested Visits Authorized [id number] Pending Review Auto-Generat ed Referral 10/05/2023 05/05/2024 1 1 Specialty Diagnoses / Procedures Referred By Contac t Referred To Contact Vascular Surgery Diagnoses ESRD (end stage renal disease) (HCC) Procedures CONSULT TO VASCULAR SURGERY OFFICE/OUTPATIENT [facility] 60 MINUTES Tresa Marcum APRN.NOY [address] [place] [address] Referral ID Status Reason Start Date Expiration Date Visits Requested Visits Authorized [id number] Authorized PCP Requested Referral 4 12/10/2024 1 1 Specialty Diagnoses / Procedures Referred By Contac t Referred To Contact Diagnoses CASSIE (obstructive sleep apnea) Procedures CONSULT TO SLEEP MEDICINE - ADULT OFFICE/OUTPATIENT [facility] 60 MINUTES Sha Myrick MD [address] [place] [id number] Referral ID Status Reason Start Date Expiration Date Visits Requested Visits Authorized [id number] Authorized PCP Requested Referral 4 01/11/2025 1 1 Specialty Diagnoses / Procedures Referred By Contac t Referred To Contact Pain Management Diagnoses Spinal stenosis of lumbar region, unspecified whether neurogenic claudication present Procedures CONSULT TO PAIN MGT OFFICE/OUTPATIENT [facility] 60 MINUTES Ignacio Cheatham MD [address] [place] [address] Referral ID Status Reason Start Date Expiration Date Visits Requested Visits Authorized [id number] Authorized PCP Requested Referral 03/25/2024 03/25/2025 1 1 Specialty Diagnoses / Procedures Referred By Contac t Referred To Contact Neurology Diagnoses TIA (transient ischemic attack) Procedures CONSULT TO NEUROLOGY OFFICE/OUTPATIENT [facility] 60 MINUTES Ignacio Cheatham MD [address] [place] [address] Referral ID Status Reason Start Date Expiration Date Visits Requested Visits Authorized [id number] Authorized PCP Requested Referral 03/25/2024 03/25/2025 1 [...] PAIN RLE INTRACTABLE PAIN RLE INTRACTABLE PAIN SNF LAB WORK LABWORK LABWORK LABWORK Foot pain/swelling/ecchymosis Reason for Visit Inability to walk Right leg pain Chief Complaint leg pain R LEG PAIN RLE INTRACTABLE PAIN RLE INTRACTABLE PAIN RLE INTRACTABLE PAIN SNF LAB WORK LABWORK LABWORK LABWORK Foot pain/swelling/ecchymosis chest pain Reason for Visit Inability to walk Right leg pain Chief Complaint SNF LAB WOR K LABWORK LABWORK LABWORK Foot [...] TO AMBULATE TIB/FIB FRACTURE INABILITY TO AMBULATE SNF LABWORK abn lab SNF LABWORK LAB WORK LAB WORK LAB WORK fall Reason for Visit Secondary hyperparat hyroidism Chief Complaint SNF LABWORK abn lab SNF LABWORK LAB WORK LAB WORK LAB WORK [...] section and content) DATE CREATED AUTHOR 08/19/2017 [facility] ([place]) DATE CREATED AUTHOR AUTHOR'S ORGANIZ ATION 08/21/2017 [facility] DATE CREATED AUTHOR AUTHOR'S ORGANIZ ATION 01/24/2020 [facility] DATE CREATED AUTHOR AUTHOR'S ORGANIZ ATION 08/10/2022 [facility] DATE CREATED AUTHOR AUTHOR'S ORGANIZ ATION 06/17/2023 [facility] DATE CREATED AUTHOR AUTHOR'S ORGANIZ ATION 08/05/2024 [facility] DATE CREATED AUTHOR AUTHOR'S ORGANIZ ATION 08/28/2024 [facility] DATE CREATED AUTHOR AUTHOR'S ORGANIZ ATION 09/16/2024 [facility] DATE CREATED AUTHOR AUTHOR'S ORGANIZ ATION 10/02/2024 [facility] Source Comments (unrecognize d section and content) In the event this informatio n is protected by the Federal Confidentiality of Alcohol and Drug Abuse Patient Records regulations: The Federal rules restrict any use of the information to criminally investigate or prosecute any alcohol or drug abuse patient.[facility] the event this information is protected by the Federal Confidentiality of Alcohol and Drug Abuse Patient Records regulations: The Federal rules restrict any use of the information to criminally investigate or prosecute any alcohol or drug abuse patient.[facility] Hospital[facility] the event this information is protected by the Federal Confidentiality of Alcohol and Drug Abuse Patient Records regulations: The Federal rules restrict any use of the information to criminally investigate or prosecute any alcohol or drug abuse patient.[facility] Hospital[facility] the event this information is protected by the Federal Confidentiality of Alcohol and Drug Abuse Patient Records regulations: The Federal rules restrict any use of the information to criminally investigate or prosecute any alcohol or drug abuse patient.[facility] Hospital[facility] the event this information is protected by the Federal Confidentiality of Alcohol and Drug Abuse Patient Records regulations: The Federal rules restrict any use of the information to criminally investigate or prosecute any alcohol or drug abuse patient.[facility] HospitalIn the event this information is protected by the Federal Confidentiality of Alcohol and Drug Abuse Patient Records regulations: The Federal rules restrict any use of the information to criminally investigate or prosecute any alcohol or drug abuse patient.[facility] HospitalIn the event this information is protected by the Federal Confidentiality of Alcohol and Drug Abuse Patient Records regulations: The Federal rules restrict any use of the information to criminally investigate or prosecute any alcohol or drug abuse patient.[facility] HospitalIn the event this information is protected by the Federal Confidentiality of Alcohol and Drug Abuse Patient Records regulations: The Federal rules restrict any use of the information to criminally investigate or prosecute any alcohol or drug abuse patient.[facility] HospitalIn the event this information is protected by the Federal Confidentiality of Alcohol and Drug Abuse Patient Records regulations: The Federal rules restrict any use of the information to criminally investigate or prosecute any alcohol or drug abuse patient.[facility] HospitalIn the event this information is protected by the Federal Confidentiality of Alcohol and Drug Abuse Patient Records regulations: The Federal rules restrict any use of the information to criminally investigate or prosecute any alcohol or drug abuse patient.[facility] HospitalIn the event this information is protected by the Federal Confidentiality of Alcohol and Drug Abuse Patient Records regulations: The Federal rules restrict any use of the information to criminally investigate or prosecute any alcohol or drug abuse patient.[facility] HospitalIn the event this information is protected by the Federal Confidentiality of Alcohol and Drug Abuse Patient Records regulations: The Federal rules restrict any use of the information to criminally investigate or prosecute any alcohol or drug abuse patient.[facility] HospitalIn the event this information is protected by the Federal Confidentiality of Alcohol and Drug Abuse Patient Records regulations: The Federal rules restrict any use of the information to criminally investigate or prosecute any alcohol or drug abuse patient.[facility] HospitalIn the event this information is protected by the Federal Confidentiality of Alcohol and Drug Abuse Patient Records regulations: The Federal rules restrict any use of the information to criminally investigate or prosecute any alcohol or drug abuse patient.[facility] HospitalIn the event this information is protected by the Federal Confidentiality of Alcohol and Drug Abuse Patient Records regulations: The Federal rules restrict any use of the information to criminally investigate or prosecute any alcohol or drug abuse patient.[facility] HospitalIn the event this information is protected by the Federal Confidentiality of Alcohol and Drug Abuse Patient Records regulations: The Federal rules restrict any use of the information to criminally investigate or prosecute any alcohol or drug abuse patient.[facility] HospitalIn the event this information is protected by the Federal Confidentiality of Alcohol and Drug Abuse Patient Records regulations: The Federal rules restrict any use of the information to criminally investigate or prosecute any alcohol or drug abuse patient.[facility] HospitalIn the event this information is protected by the Federal Confidentiality of Alcohol and Drug Abuse Patient Records regulations: The Federal rules restrict any use of the information to criminally investigate or prosecute any alcohol or drug abuse patient.[facility] HospitalIn the event this information is protected by the Federal Confidentiality of Alcohol and Drug Abuse Patient Records regulations: The Federal rules restrict any use of the information to criminally investigate or prosecute any alcohol or drug abuse patient.[facility] HospitalIn the event this information is protected by the Federal Confidentiality of Alcohol and Drug Abuse Patient Records regulations: The Federal rules restrict any use of the information to criminally investigate or prosecute any alcohol or drug abuse patient.[facility] HospitalIn the event this information is protected by the Federal Confidentiality of Alcohol and Drug Abuse Patient Records regulations: The Federal rules restrict any use of the information to criminally investigate or prosecute any alcohol or drug abuse patient.[facility] HospitalIn the event this information is protected by the Federal Confidentiality of Alcohol and Drug Abuse Patient Records regulations: The Federal rules restrict any use of the information to criminally investigate or prosecute any alcohol or drug abuse patient.[facility] HospitalIn the event this information is protected by the Federal Confidentiality of Alcohol and Drug Abuse Patient Records regulations: The Federal rules restrict any use of the information to criminally investigate or prosecute any alcohol or drug abuse patient.[facility] HospitalIn the event this information is protected by the Federal Confidentiality of Alcohol and Drug Abuse Patient Records regulations: The Federal rules restrict any use of the information to criminally investigate or prosecute any alcohol or drug abuse patient.[facility] HospitalIn the event this information is protected by the Federal Confidentiality of Alcohol and Drug Abuse Patient Records regulations: The Federal rules restrict any use of the information to criminally investigate or prosecute any alcohol or drug abuse patient.[facility] HospitalIn the event this information is protected by the Federal Confidentiality of Alcohol and Drug Abuse Patient Records regulations: The Federal rules restrict any use of the information to criminally investigate or prosecute any alcohol or drug abuse patient.[facility] HospitalIn the event this information is protected by the Federal Confidentiality of Alcohol and Drug Abuse Patient Records regulations: The Federal rules restrict any use of the information to criminally investigate or prosecute any alcohol or drug abuse patient.[facility] HospitalIn the event this information is protected by the Federal Confidentiality of Alcohol and Drug Abuse Patient Records regulations: The Federal rules restrict any use of the information to criminally investigate or prosecute any alcohol or drug abuse patient.[facility] HospitalIn the event this information is protected by the Federal Confidentiality of Alcohol and Drug Abuse Patient Records regulations: The Federal rules restrict any use of the information to criminally investigate or prosecute any alcohol or drug abuse patient.[facility] HospitalIn the event this information is protected by the Federal Confidentiality of Alcohol and Drug Abuse Patient Records regulations: The Federal rules restrict any use of the information to criminally investigate or prosecute any alcohol or drug abuse patient.[facility] HospitalIn the event this information is protected by the Federal Confidentiality of Alcohol and Drug Abuse Patient Records regulations: The Federal rules restrict any use of the information to criminally investigate or prosecute any alcohol or drug abuse patient.[facility] HospitalIn the event this information is protected by the Federal Confidentiality of Alcohol and Drug Abuse Patient Records regulations: The Federal rules restrict any use of the information to criminally investigate or prosecute any alcohol or drug abuse patient.[facility] HospitalIn the event this information is protected by the Federal Confidentiality of Alcohol and Drug Abuse Patient Records regulations: The Federal rules restrict any use of the information to criminally investigate or prosecute any alcohol or drug abuse patient.[facility] HospitalIn the event this information is protected by the Federal Confidentiality of Alcohol and Drug Abuse Patient Records regulations: The Federal rules restrict any use of the information to criminally investigate or prosecute any alcohol or drug abuse patient.[facility] HospitalIn the event this information is protected by the Federal Confidentiality of Alcohol and Drug Abuse Patient Records regulations: The Federal rules restrict any use of the information to criminally investigate or prosecute any alcohol or drug abuse patient.[facility] HospitalIn the event this information is protected by the Federal Confidentiality of Alcohol and Drug Abuse Patient Records regulations: The Federal rules restrict any use of the information to criminally investigate or prosecute any alcohol or drug abuse patient.[facility] HospitalIn the event this information is protected by the Federal Confidentiality of Alcohol and Drug Abuse Patient Records regulations: The Federal rules restrict any use of the information to criminally investigate or prosecute any alcohol or drug abuse patient.[facility] HospitalIn the event this information is protected by the Federal Confidentiality of Alcohol and Drug Abuse Patient Records regulations: The Federal rules restrict any use of the information to criminally investigate or prosecute any alcohol or drug abuse patient.[facility] HospitalIn the event this information is protected by the Federal Confidentiality of Alcohol and Drug Abuse Patient Records regulations: The Federal rules restrict any use of the information to criminally investigate or prosecute any alcohol or drug abuse patient.[facility] HospitalIn the event this information is protected by the Federal Confidentiality of Alcohol and Drug Abuse Patient Records regulations: The Federal rules restrict any use of the information to criminally investigate or prosecute any alcohol or drug abuse patient.[facility] HospitalIn the event this information is protected by the Federal Confidentiality of Alcohol and Drug Abuse Patient Records regulations: The Federal rules restrict any use of the information to criminally investigate or prosecute any alcohol or drug abuse patient.[facility] HospitalIn the event this information is protected by the Federal Confidentiality of Alcohol and Drug Abuse Patient Records regulations: The Federal rules restrict any use of the information to criminally investigate or prosecute any alcohol or drug abuse patient.[facility] HospitalIn the event this information is protected by the Federal Confidentiality of Alcohol and Drug Abuse Patient Records regulations: The Federal rules restrict any use of the information to criminally investigate or prosecute any alcohol or drug abuse patient.[facility] HospitalIn the event this information is protected by the Federal Confidentiality of Alcohol and Drug Abuse Patient Records regulations: The Federal rules restrict any use of the information to criminally investigate or prosecute any alcohol or drug abuse patient.[facility] the event this information is protected by the Federal Confidentiality of Alcohol and Drug Abuse Patient Records regulations: The Federal rules restrict any use of the information to criminally investigate or prosecute any alcohol or drug abuse patient.[facility] HospitalIn the event this information is protected by the Federal Confidentiality of Alcohol and Drug Abuse Patient Records regulations: The Federal rules restrict any use of the information to criminally investigate or prosecute any alcohol or drug abuse patient.[facility] HospitalIn the event this information is protected by the Federal Confidentiality of Alcohol and Drug Abuse Patient Records regulations: The Federal rules restrict any use of the information to criminally investigate or prosecute any alcohol or drug abuse patient.[facility] HospitalIn the event this information is protected by the Federal Confidentiality of Alcohol and Drug Abuse Patient Records regulations: The Federal rules restrict any use of the information to criminally investigate or prosecute any alcohol or drug abuse patient.[facility] HospitalIn the event this information is protected by the Federal Confidentiality of Alcohol and Drug Abuse Patient Records regulations: The Federal rules restrict any use of the information to criminally investigate or prosecute any alcohol or drug abuse patient.[facility] HospitalIn the event this information is protected by the Federal Confidentiality of Alcohol and Drug Abuse Patient Records regulations: The Federal rules restrict any use of the information to criminally investigate or prosecute any alcohol or drug abuse patient.[facility] HospitalIn the event this information is protected by the Federal Confidentiality of Alcohol and Drug Abuse Patient Records regulations: The Federal rules restrict any use of the information to criminally investigate or prosecute any alcohol or drug abuse patient.[facility] HospitalIn the event this information is protected by the Federal Confidentiality of Alcohol and Drug Abuse Patient Records regulations: The Federal rules restrict any use of the information to criminally investigate or prosecute any alcohol or drug abuse patient.[facility] HospitalIn the event this information is protected by the Federal Confidentiality of Alcohol and Drug Abuse Patient Records regulations: The Federal rules restrict any use of the information to criminally investigate or prosecute any alcohol or drug abuse patient.[facility] HospitalIn the event this information is protected by the Federal Confidentiality of Alcohol and Drug Abuse Patient Records regulations: The Federal rules restrict any use of the information to criminally investigate or prosecute any alcohol or drug abuse patient.[facility] HospitalIn the event this information is protected by the Federal Confidentiality of Alcohol and Drug Abuse Patient Records regulations: The Federal rules restrict any use of the information to criminally investigate or prosecute any alcohol or drug abuse patient.[facility] HospitalIn the event this information is protected by the Federal Confidentiality of Alcohol and Drug Abuse Patient Records regulations: The Federal rules restrict any use of the information to criminally investigate or prosecute any alcohol or drug abuse patient.[facility] HospitalIn the event this information is protected by the Federal Confidentiality of Alcohol and Drug Abuse Patient Records regulations: The Federal rules restrict any use of the information to criminally investigate or prosecute any alcohol or drug abuse patient.[facility] HospitalIn the event this information is protected by the Federal Confidentiality of Alcohol and Drug Abuse Patient Records regulations: The Federal rules restrict any use of the information to criminally investigate or prosecute any alcohol or drug abuse patient.[facility] HospitalIn the event this information is protected by the Federal Confidentiality of Alcohol and Drug Abuse Patient Records regulations: The Federal rules restrict any use of the information to criminally investigate or prosecute any alcohol or drug abuse patient.[facility] HospitalIn the event this information is protected by the Federal Confidentiality of Alcohol and Drug Abuse Patient Records regulations: The Federal rules restrict any use of the information to criminally investigate or prosecute any alcohol or drug abuse patient.[facility] HospitalIn the event this information is protected by the Federal Confidentiality of Alcohol and Drug Abuse Patient Records regulations: The Federal rules restrict any use of the information to criminally investigate or prosecute any alcohol or drug abuse patient.[facility] HospitalIn the event this information is protected by the Federal Confidentiality of Alcohol and Drug Abuse Patient Records regulations: The Federal rules restrict any use of the information to criminally investigate or prosecute any alcohol or drug abuse patient.[facility] HospitalIn the event this information is protected by the Federal Confidentiality of Alcohol and Drug Abuse Patient Records regulations: The Federal rules restrict any use of the information to criminally investigate or prosecute any alcohol or drug abuse patient.[facility] HospitalIn the event this information is protected by the Federal Confidentiality of Alcohol and Drug Abuse Patient Records regulations: The Federal rules restrict any use of the information to criminally investigate or prosecute any alcohol or drug abuse patient.[facility] HospitalIn the event this information is protected by the Federal Confidentiality of Alcohol and Drug Abuse Patient Records regulations: The Federal rules restrict any use of the information to criminally investigate or prosecute any alcohol or drug abuse patient.[facility] HospitalIn the event this information is protected by the Federal Confidentiality of Alcohol and Drug Abuse Patient Records regulations: The Federal rules restrict any use of the information to criminally investigate or prosecute any alcohol or drug abuse patient.[facility] HospitalIn the event this information is protected by the Federal Confidentiality of Alcohol and Drug Abuse Patient Records regulations: The Federal rules restrict any use of the information to criminally investigate or prosecute any alcohol or drug abuse patient.[facility] HospitalIn the event this information is protected by the Federal Confidentiality of Alcohol and Drug Abuse Patient Records regulations: The Federal rules restrict any use of the information to criminally investigate or prosecute any alcohol or drug abuse patient.[facility] HospitalIn the event this information is protected by the Federal Confidentiality of Alcohol and Drug Abuse Patient Records regulations: The Federal rules restrict any use of the information to criminally investigate or prosecute any alcohol or drug abuse patient.[facility] HospitalIn the event this information is protected by the Federal Confidentiality of Alcohol and Drug Abuse Patient Records regulations: The Federal rules restrict any use of the information to criminally investigate or prosecute any alcohol or drug abuse patient.[facility] HospitalIn the event this information is protected by the Federal Confidentiality of Alcohol and Drug Abuse Patient Records regulations: The Federal rules restrict any use of the information to criminally investigate or prosecute any alcohol or drug abuse patient.[facility] HospitalIn the event this information is protected by the Federal Confidentiality of Alcohol and Drug Abuse Patient Records regulations: The Federal rules restrict any use of the information to criminally investigate or prosecute any alcohol or drug abuse patient.[facility] HospitalIn the event this information is protected by the Federal Confidentiality of Alcohol and Drug Abuse Patient Records regulations: The Federal rules restrict any use of the information to criminally investigate or prosecute any alcohol or drug abuse patient.[facility] HospitalIn the event this information is protected by the Federal Confidentiality of Alcohol and Drug Abuse Patient Records regulations: The Federal rules restrict any use of the information to criminally investigate or prosecute any alcohol or drug abuse patient.[facility] HospitalIn the event this information is protected by the Federal Confidentiality of Alcohol and Drug Abuse Patient Records regulations: The Federal rules restrict any use of the information to criminally investigate or prosecute any alcohol or drug abuse patient.[facility] HospitalIn the event this information is protected by the Federal Confidentiality of Alcohol and Drug Abuse Patient Records regulations: The Federal rules restrict any use of the information to criminally investigate or prosecute any alcohol or drug abuse patient.[facility] HospitalIn the event this information is protected by the Federal Confidentiality of Alcohol and Drug Abuse Patient Records regulations: The Federal rules restrict any use of the information to criminally investigate or prosecute any alcohol or drug abuse patient.[facility] HospitalIn the event this information is protected by the Federal Confidentiality of Alcohol and Drug Abuse Patient Records regulations: The Federal rules restrict any use of the information to criminally investigate or prosecute any alcohol or drug abuse patient.[facility] HospitalIn the event this information is protected by the Federal Confidentiality of Alcohol and Drug Abuse Patient Records regulations: The Federal rules restrict any use of the information to criminally investigate or prosecute any alcohol or drug abuse patient.[facility] HospitalIn the event this information is protected by the Federal Confidentiality of Alcohol and Drug Abuse Patient Records regulations: The Federal rules restrict any use of the information to criminally investigate or prosecute any alcohol or drug abuse patient.[facility] HospitalIn the event this information is protected by the Federal Confidentiality of Alcohol and Drug Abuse Patient Records regulations: The Federal rules restrict any use of the information to criminally investigate or prosecute any alcohol or drug abuse patient.[facility] HospitalIn the event this information is protected by the Federal Confidentiality of Alcohol and Drug Abuse Patient Records regulations: The Federal rules restrict any use of the information to criminally investigate or prosecute any alcohol or drug abuse patient.[facility] HospitalIn the event this information is protected by the Federal Confidentiality of Alcohol and Drug Abuse Patient Records regulations: The Federal rules restrict any use of the information to criminally investigate or prosecute any alcohol or drug abuse patient.[facility] HospitalIn the event this information is protected by the Federal Confidentiality of Alcohol and Drug Abuse Patient Records regulations: The Federal rules restrict any use of the information to criminally investigate or prosecute any alcohol or drug abuse patient.[facility] HospitalIn the event this information is protected by the Federal Confidentiality of Alcohol and Drug Abuse Patient Records regulations: The Federal rules restrict any use of the information to criminally investigate or prosecute any alcohol or drug abuse patient.[facility] HospitalIn the event this information is protected by the Federal Confidentiality of Alcohol and Drug Abuse Patient Records regulations: The Federal rules restrict any use of the information to criminally investigate or prosecute any alcohol or drug abuse patient.[facility] HospitalIn the event this information is protected by the Federal Confidentiality of Alcohol and Drug Abuse Patient Records regulations: The Federal rules restrict any use of the information to criminally investigate or prosecute any alcohol or drug abuse patient.[facility] HospitalIn the event this information is protected by the Federal Confidentiality of Alcohol and Drug Abuse Patient Records regulations: The Federal rules restrict any use of the information to criminally investigate or prosecute any alcohol or drug abuse patient.[facility] HospitalIn the event this information is protected by the Federal Confidentiality of Alcohol and Drug Abuse Patient Records regulations: The Federal rules restrict any use of the information to criminally investigate or prosecute any alcohol or drug abuse patient.[facility] HospitalIn the event this information is protected by the Federal Confidentiality of Alcohol and Drug Abuse Patient Records regulations: The Federal rules restrict any use of the information to criminally investigate or prosecute any alcohol or drug abuse patient.[facility] HospitalIn the event this information is protected by the Federal Confidentiality of Alcohol and Drug Abuse Patient Records regulations: The Federal rules restrict any use of the information to criminally investigate or prosecute any alcohol or drug abuse patient.[facility] HospitalIn the event this information is protected by the Federal Confidentiality of Alcohol and Drug Abuse Patient Records regulations: The Federal rules restrict any use of the information to criminally investigate or prosecute any alcohol or drug abuse patient.[facility] HospitalIn the event this information is protected by the Federal Confidentiality of Alcohol and Drug Abuse Patient Records regulations: The Federal rules restrict any use of the information to criminally investigate or prosecute any alcohol or drug abuse patient.[facility] HospitalIn the event this information is protected by the Federal Confidentiality of Alcohol and Drug Abuse Patient Records regulations: The Federal rules restrict any use of the information to criminally investigate or prosecute any alcohol or drug abuse patient.[facility] the event this information is protected by the Federal Confidentiality of Alcohol and Drug Abuse Patient Records regulations: The Federal rules restrict any use of the information to criminally investigate or prosecute any alcohol or drug abuse patient.[facility] HospitalIn the event this information is protected by the Federal Confidentiality of Alcohol and Drug Abuse Patient Records regulations: The Federal rules restrict any use of the information to criminally investigate or prosecute any alcohol or drug abuse patient.[facility] HospitalIn the event this information is protected by the Federal Confidentiality of Alcohol and Drug Abuse Patient Records regulations: The Federal rules restrict any use of the information to criminally investigate or prosecute any alcohol or drug abuse patient.[facility] HospitalIn the event this information is protected by the Federal Confidentiality of Alcohol and Drug Abuse Patient Records regulations: The Federal rules restrict any use of the information to criminally investigate or prosecute any alcohol or drug abuse patient.[facility] HospitalIn the event this information is protected by the Federal Confidentiality of Alcohol and Drug Abuse Patient Records regulations: The Federal rules restrict any use of the information to criminally investigate or prosecute any alcohol or drug abuse patient.[facility] HospitalIn the event this information is protected by the Federal Confidentiality of Alcohol and Drug Abuse Patient Records regulations: The Federal rules restrict any use of the information to criminally investigate or prosecute any alcohol or drug abuse patient.[facility] HospitalIn the event this information is protected by the Federal Confidentiality of Alcohol and Drug Abuse Patient Records regulations: The Federal rules restrict any use of the information to criminally investigate or prosecute any alcohol or drug abuse patient.[facility] HospitalIn the event this information is protected by the Federal Confidentiality of Alcohol and Drug Abuse Patient Records regulations: The Federal rules restrict any use of the information to criminally investigate or prosecute any alcohol or drug abuse patient.[facility] HospitalIn the event this information is protected by the Federal Confidentiality of Alcohol and Drug Abuse Patient Records regulations: The Federal rules restrict any use of the information to criminally investigate or prosecute any alcohol or drug abuse patient.[facility] HospitalIn the event this information is protected by the Federal Confidentiality of Alcohol and Drug Abuse Patient Records regulations: The Federal rules restrict any use of the information to criminally investigate or prosecute any alcohol or drug abuse patient.[facility] HospitalIn the event this information is protected by the Federal Confidentiality of Alcohol and Drug Abuse Patient Records regulations: The Federal rules restrict any use of the information to criminally investigate or prosecute any alcohol or drug abuse patient.[facility] HospitalIn the event this information is protected by the Federal Confidentiality of Alcohol and Drug Abuse Patient Records regulations: The Federal rules restrict any use of the information to criminally investigate or prosecute any alcohol or drug abuse patient.[facility] HospitalIn the event this information is protected by the Federal Confidentiality of Alcohol and Drug Abuse Patient Records regulations: The Federal rules restrict any use of the information to criminally investigate or prosecute any alcohol or drug abuse patient.[facility] HospitalIn the event this information is protected by the Federal Confidentiality of Alcohol and Drug Abuse Patient Records regulations: The Federal rules restrict any use of the information to criminally investigate or prosecute any alcohol or drug abuse patient.[facility] HospitalIn the event this information is protected by the Federal Confidentiality of Alcohol and Drug Abuse Patient Records regulations: The Federal rules restrict any use of the information to criminally investigate or prosecute any alcohol or drug abuse patient.[facility] HospitalIn the event this information is protected by the Federal Confidentiality of Alcohol and Drug Abuse Patient Records regulations: The Federal rules restrict any use of the information to criminally investigate or prosecute any alcohol or drug abuse patient.[facility] HospitalIn the event this information is protected by the Federal Confidentiality of Alcohol and Drug Abuse Patient Records regulations: The Federal rules restrict any use of the information to criminally investigate or prosecute any alcohol or drug abuse patient.[facility] HospitalIn the event this information is protected by the Federal Confidentiality of Alcohol and Drug Abuse Patient Records regulations: The Federal rules restrict any use of the information to criminally investigate or prosecute any alcohol or drug abuse patient.[facility] HospitalIn the event this information is protected by the Federal Confidentiality of Alcohol and Drug Abuse Patient Records regulations: The Federal rules restrict any use of the information to criminally investigate or prosecute any alcohol or drug abuse patient.[facility] HospitalIn the event this information is protected by the Federal Confidentiality of Alcohol and Drug Abuse Patient Records regulations: The Federal rules restrict any use of the information to criminally investigate or prosecute any alcohol or drug abuse patient.[facility] HospitalIn the event this information is protected by the Federal Confidentiality of Alcohol and Drug Abuse Patient Records regulations: The Federal rules restrict any use of the information to criminally investigate or prosecute any alcohol or drug abuse patient.[facility] HospitalIn the event this information is protected by the Federal Confidentiality of Alcohol and Drug Abuse Patient Records regulations: The Federal rules restrict any use of the information to criminally investigate or prosecute any alcohol or drug abuse patient.[facility] HospitalIn the event this information is protected by the Federal Confidentiality of Alcohol and Drug Abuse Patient Records regulations: The Federal rules restrict any use of the information to criminally investigate or prosecute any alcohol or drug abuse patient.[facility] HospitalIn the event this information is protected by the Federal Confidentiality of Alcohol and Drug Abuse Patient Records regulations: The Federal rules restrict any use of the information to criminally investigate or prosecute any alcohol or drug abuse patient.[facility] HospitalIn the event this information is protected by the Federal Confidentiality of Alcohol and Drug Abuse Patient Records regulations: The Federal rules restrict any use of the information to criminally investigate or prosecute any alcohol or drug abuse patient.[facility] HospitalIn the event this information is protected by the Federal Confidentiality of Alcohol and Drug Abuse Patient Records regulations: The Federal rules restrict any use of the information to criminally investigate or prosecute any alcohol or drug abuse patient.[facility] HospitalIn the event this information is protected by the Federal Confidentiality of Alcohol and Drug Abuse Patient Records regulations: The Federal rules restrict any use of the information to criminally investigate or prosecute any alcohol or drug abuse patient.[facility] HospitalIn the event this information is protected by the Federal Confidentiality of Alcohol and Drug Abuse Patient Records regulations: The Federal rules restrict any use of the information to criminally investigate or prosecute any alcohol or drug abuse patient.[facility] HospitalIn the event this information is protected by the Federal Confidentiality of Alcohol and Drug Abuse Patient Records regulations: The Federal rules restrict any use of the information to criminally investigate or prosecute any alcohol or drug abuse patient.[facility] HospitalIn the event this information is protected by the Federal Confidentiality of Alcohol and Drug Abuse Patient Records regulations: The Federal rules restrict any use of the information to criminally investigate or prosecute any alcohol or drug abuse patient.[facility] HospitalIn the event this information is protected by the Federal Confidentiality of Alcohol and Drug Abuse Patient Records regulations: The Federal rules restrict any use of the information to criminally investigate or prosecute any alcohol or drug abuse patient.[facility] HospitalIn the event this information is protected by the Federal Confidentiality of Alcohol and Drug Abuse Patient Records regulations: The Federal rules restrict any use of the information to criminally investigate or prosecute any alcohol or drug abuse patient.[facility] HospitalIn the event this information is protected by the Federal Confidentiality of Alcohol and Drug Abuse Patient Records regulations: The Federal rules restrict any use of the information to criminally investigate or prosecute any alcohol or drug abuse patient.[facility] HospitalIn the event this information is protected by the Federal Confidentiality of Alcohol and Drug Abuse Patient Records regulations: The Federal rules restrict any use of the information to criminally investigate or prosecute any alcohol or drug abuse patient.[facility] HospitalIn the event this information is protected by the Federal Confidentiality of Alcohol and Drug Abuse Patient Records regulations: The Federal rules restrict any use of the information to criminally investigate or prosecute any alcohol or drug abuse patient.[facility] HospitalIn the event this information is protected by the Federal Confidentiality of Alcohol and Drug Abuse Patient Records regulations: The Federal rules restrict any use of the information to criminally investigate or prosecute any alcohol or drug abuse patient.[facility] HospitalIn the event this information is protected by the Federal Confidentiality of Alcohol and Drug Abuse Patient Records regulations: The Federal rules restrict any use of the information to criminally investigate or prosecute any alcohol or drug abuse patient.[facility] HospitalIn the event this information is protected by the Federal Confidentiality of Alcohol and Drug Abuse Patient Records regulations: The Federal rules restrict any use of the information to criminally investigate or prosecute any alcohol or drug abuse patient.[facility] HospitalIn the event this information is protected by the Federal Confidentiality of Alcohol and Drug Abuse Patient Records regulations: The Federal rules restrict any use of the information to criminally investigate or prosecute any alcohol or drug abuse patient.[facility] HospitalIn the event this information is protected by the Federal Confidentiality of Alcohol and Drug Abuse Patient Records regulations: The Federal rules restrict any use of the information to criminally investigate or prosecute any alcohol or drug abuse patient.[facility] HospitalIn the event this information is protected by the Federal Confidentiality of Alcohol and Drug Abuse Patient Records regulations: The Federal rules restrict any use of the information to criminally investigate or prosecute any alcohol or drug abuse patient.[facility] HospitalIn the event this information is protected by the Federal Confidentiality of Alcohol and Drug Abuse Patient Records regulations: The Federal rules restrict any use of the information to criminally investigate or prosecute any alcohol or drug abuse patient.[facility] HospitalIn the event this information is protected by the Federal Confidentiality of Alcohol and Drug Abuse Patient Records regulations: The Federal rules restrict any use of the information to criminally investigate or prosecute any alcohol or drug abuse patient.[facility] HospitalIn the event this information is protected by the Federal Confidentiality of Alcohol and Drug Abuse Patient Records regulations: The Federal rules restrict any use of the information to criminally investigate or prosecute any alcohol or drug abuse patient.[facility] HospitalIn the event this information is protected by the Federal Confidentiality of Alcohol and Drug Abuse Patient Records regulations: The Federal rules restrict any use of the information to criminally investigate or prosecute any alcohol or drug abuse patient.[facility] HospitalIn the event this information is protected by the Federal Confidentiality of Alcohol and Drug Abuse Patient Records regulations: The Federal rules restrict any use of the information to criminally investigate or prosecute any alcohol or drug abuse patient.[facility] HospitalIn the event this information is protected by the Federal Confidentiality of Alcohol and Drug Abuse Patient Records regulations: The Federal rules restrict any use of the information to criminally investigate or prosecute any alcohol or drug abuse patient.[facility] HospitalIn the event this information is protected by the Federal Confidentiality of Alcohol and Drug Abuse Patient Records regulations: The Federal rules restrict any use of the information to criminally investigate or prosecute any alcohol or drug abuse patient.[facility] HospitalIn the event this information is protected by the Federal Confidentiality of Alcohol and Drug Abuse Patient Records regulations: The Federal rules restrict any use of the information to criminally investigate or prosecute any alcohol or drug abuse patient.[facility] HospitalIn the event this information is protected by the Federal Confidentiality of Alcohol and Drug Abuse Patient Records regulations: The Federal rules restrict any use of the information to criminally investigate or prosecute any alcohol or drug abuse patient.[facility] the event this information is protected by the Federal Confidentiality of Alcohol and Drug Abuse Patient Records regulations: The Federal rules restrict any use of the information to criminally investigate or prosecute any alcohol or drug abuse patient.[facility] HospitalIn the event this information is protected by the Federal Confidentiality of Alcohol and Drug Abuse Patient Records regulations: The Federal rules restrict any use of the information to criminally investigate or prosecute any alcohol or drug abuse patient.[facility] HospitalIn the event this information is protected by the Federal Confidentiality of Alcohol and Drug Abuse Patient Records regulations: The Federal rules restrict any use of the information to criminally investigate or prosecute any alcohol or drug abuse patient.[facility] HospitalIn the event this information is protected by the Federal Confidentiality of Alcohol and Drug Abuse Patient Records regulations: The Federal rules restrict any use of the information to criminally investigate or prosecute any alcohol or drug abuse patient.[facility] HospitalIn the event this information is protected by the Federal Confidentiality of Alcohol and Drug Abuse Patient Records regulations: The Federal rules restrict any use of the information to criminally investigate or prosecute any alcohol or drug abuse patient.[facility] HospitalIn the event this information is protected by the Federal Confidentiality of Alcohol and Drug Abuse Patient Records regulations: The Federal rules restrict any use of the information to criminally investigate or prosecute any alcohol or drug abuse patient.[facility] HospitalIn the event this information is protected by the Federal Confidentiality of Alcohol and Drug Abuse Patient Records regulations: The Federal rules restrict any use of the information to criminally investigate or prosecute any alcohol or drug abuse patient.[facility] HospitalIn the event this information is protected by the Federal Confidentiality of Alcohol and Drug Abuse Patient Records regulations: The Federal rules restrict any use of the information to criminally investigate or prosecute any alcohol or drug abuse patient.[facility] HospitalIn the event this information is protected by the Federal Confidentiality of Alcohol and Drug Abuse Patient Records regulations: The Federal rules restrict any use of the information to criminally investigate or prosecute any alcohol or drug abuse patient.[facility] HospitalIn the event this information is protected by the Federal Confidentiality of Alcohol and Drug Abuse Patient Records regulations: The Federal rules restrict any use of the information to criminally investigate or prosecute any alcohol or drug abuse patient.[facility] HospitalIn the event this information is protected by the Federal Confidentiality of Alcohol and Drug Abuse Patient Records regulations: The Federal rules restrict any use of the information to criminally investigate or prosecute any alcohol or drug abuse patient.[facility] HospitalIn the event this information is protected by the Federal Confidentiality of Alcohol and Drug Abuse Patient Records regulations: The Federal rules restrict any use of the information to criminally investigate or prosecute any alcohol or drug abuse patient.[facility] HospitalIn the event this information is protected by the Federal Confidentiality of Alcohol and Drug Abuse Patient Records regulations: The Federal rules restrict any use of the information to criminally investigate or prosecute any alcohol or drug abuse patient.[facility] HospitalIn the event this information is protected by the Federal Confidentiality of Alcohol and Drug Abuse Patient Records regulations: The Federal rules restrict any use of the information to criminally investigate or prosecute any alcohol or drug abuse patient.[facility] HospitalIn the event this information is protected by the Federal Confidentiality of Alcohol and Drug Abuse Patient Records regulations: The Federal rules restrict any use of the information to criminally investigate or prosecute any alcohol or drug abuse patient.[facility] HospitalIn the event this information is protected by the Federal Confidentiality of Alcohol and Drug Abuse Patient Records regulations: The Federal rules restrict any use of the information to criminally investigate or prosecute any alcohol or drug abuse patient.[facility] HospitalIn the event this information is protected by the Federal Confidentiality of Alcohol and Drug Abuse Patient Records regulations: The Federal rules restrict any use of the information to criminally investigate or prosecute any alcohol or drug abuse patient.[facility] HospitalIn the event this information is protected by the Federal Confidentiality of Alcohol and Drug Abuse Patient Records regulations: The Federal rules restrict any use of the information to criminally investigate or prosecute any alcohol or drug abuse patient.[facility] HospitalIn the event this information is protected by the Federal Confidentiality of Alcohol and Drug Abuse Patient Records regulations: The Federal rules restrict any use of the information to criminally investigate or prosecute any alcohol or drug abuse patient.[facility] HospitalIn the event this information is protected by the Federal Confidentiality of Alcohol and Drug Abuse Patient Records regulations: The Federal rules restrict any use of the information to criminally investigate or prosecute any alcohol or drug abuse patient.[facility] HospitalIn the event this information is protected by the Federal Confidentiality of Alcohol and Drug Abuse Patient Records regulations: The Federal rules restrict any use of the information to criminally investigate or prosecute any alcohol or drug abuse patient.[facility] HospitalIn the event this information is protected by the Federal Confidentiality of Alcohol and Drug Abuse Patient Records regulations: The Federal rules restrict any use of the information to criminally investigate or prosecute any alcohol or drug abuse patient.[facility] HospitalIn the event this information is protected by the Federal Confidentiality of Alcohol and Drug Abuse Patient Records regulations: The Federal rules restrict any use of the information to criminally investigate or prosecute any alcohol or drug abuse patient.[facility] HospitalIn the event this information is protected by the Federal Confidentiality of Alcohol and Drug Abuse Patient Records regulations: The Federal rules restrict any use of the information to criminally investigate or prosecute any alcohol or drug abuse patient.[facility] HospitalIn the event this information is protected by the Federal Confidentiality of Alcohol and Drug Abuse Patient Records regulations: The Federal rules restrict any use of the information to criminally investigate or prosecute any alcohol or drug abuse patient.[facility] HospitalIn the event this information is protected by the Federal Confidentiality of Alcohol and Drug Abuse Patient Records regulations: The Federal rules restrict any use of the information to criminally investigate or prosecute any alcohol or drug abuse patient.[facility] HospitalIn the event this information is protected by the Federal Confidentiality of Alcohol and Drug Abuse Patient Records regulations: The Federal rules restrict any use of the information to criminally investigate or prosecute any alcohol or drug abuse patient.[facility] HospitalIn the event this information is protected by the Federal Confidentiality of Alcohol and Drug Abuse Patient Records regulations: The Federal rules restrict any use of the information to criminally investigate or prosecute any alcohol or drug abuse patient.[facility] HospitalIn the event this information is protected by the Federal Confidentiality of Alcohol and Drug Abuse Patient Records regulations: The Federal rules restrict any use of the information to criminally investigate or prosecute any alcohol or drug abuse patient.[facility] HospitalIn the event this information is protected by the Federal Confidentiality of Alcohol and Drug Abuse Patient Records regulations: The Federal rules restrict any use of the information to criminally investigate or prosecute any alcohol or drug abuse patient.[facility] HospitalIn the event this information is protected by the Federal Confidentiality of Alcohol and Drug Abuse Patient Records regulations: The Federal rules restrict any use of the information to criminally investigate or prosecute any alcohol or drug abuse patient.[facility] HospitalIn the event this information is protected by the Federal Confidentiality of Alcohol and Drug Abuse Patient Records regulations: The Federal rules restrict any use of the information to criminally investigate or prosecute any alcohol or drug abuse patient.[facility] HospitalIn the event this information is protected by the Federal Confidentiality of Alcohol and Drug Abuse Patient Records regulations: The Federal rules restrict any use of the information to criminally investigate or prosecute any alcohol or drug abuse patient.[facility] HospitalIn the event this information is protected by the Federal Confidentiality of Alcohol and Drug Abuse Patient Records regulations: The Federal rules restrict any use of the information to criminally investigate or prosecute any alcohol or drug abuse patient.[facility] HospitalIn the event this information is protected by the Federal Confidentiality of Alcohol and Drug Abuse Patient Records regulations: The Federal rules restrict any use of the information to criminally investigate or prosecute any alcohol or drug abuse patient.[facility] HospitalIn the event this information is protected by the Federal Confidentiality of Alcohol and Drug Abuse Patient Records regulations: The Federal rules restrict any use of the information to criminally investigate or prosecute any alcohol or drug abuse patient.[facility] HospitalIn the event this information is protected by the Federal Confidentiality of Alcohol and Drug Abuse Patient Records regulations: The Federal rules restrict any use of the information to criminally investigate or prosecute any alcohol or drug abuse patient.[facility] HospitalIn the event this information is protected by the Federal Confidentiality of Alcohol and Drug Abuse Patient Records regulations: The Federal rules restrict any use of the information to criminally investigate or prosecute any alcohol or drug abuse patient.[facility] HospitalIn the event this information is protected by the Federal Confidentiality of Alcohol and Drug Abuse Patient Records regulations: The Federal rules restrict any use of the information to criminally investigate or prosecute any alcohol or drug abuse patient.[facility] HospitalIn the event this information is protected by the Federal Confidentiality of Alcohol and Drug Abuse Patient Records regulations: The Federal rules restrict any use of the information to criminally investigate or prosecute any alcohol or drug abuse patient.[facility] HospitalIn the event this information is protected by the Federal Confidentiality of Alcohol and Drug Abuse Patient Records regulations: The Federal rules restrict any use of the information to criminally investigate or prosecute any alcohol or drug abuse patient.[facility] HospitalIn the event this information is protected by the Federal Confidentiality of Alcohol and Drug Abuse Patient Records regulations: The Federal rules restrict any use of the information to criminally investigate or prosecute any alcohol or drug abuse patient.[facility] HospitalIn the event this information is protected by the Federal Confidentiality of Alcohol and Drug Abuse Patient Records regulations: The Federal rules restrict any use of the information to criminally investigate or prosecute any alcohol or drug abuse patient.[facility] HospitalIn the event this information is protected by the Federal Confidentiality of Alcohol and Drug Abuse Patient Records regulations: The Federal rules restrict any use of the information to criminally investigate or prosecute any alcohol or drug abuse patient.[facility] HospitalIn the event this information is protected by the Federal Confidentiality of Alcohol and Drug Abuse Patient Records regulations: The Federal rules restrict any use of the information to criminally investigate or prosecute any alcohol or drug abuse patient.[facility] HospitalIn the event this information is protected by the Federal Confidentiality of Alcohol and Drug Abuse Patient Records regulations: The Federal rules restrict any use of the information to criminally investigate or prosecute any alcohol or drug abuse patient.[facility] HospitalIn the event this information is protected by the Federal Confidentiality of Alcohol and Drug Abuse Patient Records regulations: The Federal rules restrict any use of the information to criminally investigate or prosecute any alcohol or drug abuse patient.[facility] HospitalIn the event this information is protected by the Federal Confidentiality of Alcohol and Drug Abuse Patient Records regulations: The Federal rules restrict any use of the information to criminally investigate or prosecute any alcohol or drug abuse patient.[facility] HospitalIn the event this information is protected by the Federal Confidentiality of Alcohol and Drug Abuse Patient Records regulations: The Federal rules restrict any use of the information to criminally investigate or prosecute any alcohol or drug abuse patient.[facility] HospitalIn the event this information is protected by the Federal Confidentiality of Alcohol and Drug Abuse Patient Records regulations: The Federal rules restrict any use of the information to criminally investigate or prosecute any alcohol or drug abuse patient.[facility] the event this information is protected by the Federal Confidentiality of Alcohol and Drug Abuse Patient Records regulations: The Federal rules restrict any use of the information to criminally investigate or prosecute any alcohol or drug abuse patient.[facility] HospitalIn the event this information is protected by the Federal Confidentiality of Alcohol and Drug Abuse Patient Records regulations: The Federal rules restrict any use of the information to criminally investigate or prosecute any alcohol or drug abuse patient.[facility] HospitalIn the event this information is protected by the Federal Confidentiality of Alcohol and Drug Abuse Patient Records regulations: The Federal rules restrict any use of the information to criminally investigate or prosecute any alcohol or drug abuse patient.[facility] HospitalIn the event this information is protected by the Federal Confidentiality of Alcohol and Drug Abuse Patient Records regulations: The Federal rules restrict any use of the information to criminally investigate or prosecute any alcohol or drug abuse patient.[facility] HospitalIn the event this information is protected by the Federal Confidentiality of Alcohol and Drug Abuse Patient Records regulations: The Federal rules restrict any use of the information to criminally investigate or prosecute any alcohol or drug abuse patient.[facility] HospitalIn the event this information is protected by the Federal Confidentiality of Alcohol and Drug Abuse Patient Records regulations: The Federal rules restrict any use of the information to criminally investigate or prosecute any alcohol or drug abuse patient.[facility] HospitalIn the event this information is protected by the Federal Confidentiality of Alcohol and Drug Abuse Patient Records regulations: The Federal rules restrict any use of the information to criminally investigate or prosecute any alcohol or drug abuse patient.[facility] HospitalIn the event this information is protected by the Federal Confidentiality of Alcohol and Drug Abuse Patient Records regulations: The Federal rules restrict any use of the information to criminally investigate or prosecute any alcohol or drug abuse patient.[facility] Reason for Visit (unrecogniz ed section and content) Reason Comments New Pain Specialty Diagnoses / Procedures Referred By Contac t Referred To Contact Orthopedics Diagnoses Chronic pain of left knee Procedures CONSULT TO ORTHOPAEDICS OFFICE/OUTPATIENT NEW HIGH MDM 60-74 MINUTES Ignacio Cheatham MD [address] [place] [address] Referral ID Status Reason Start Date Expiration Date V isits Requested Visits Authorized [id number] Closed PCP Requested Referral 03/21/2022 03/21/2023 1 [...] W & W/O CONTRAST Goldy Hunter DO [address] [place] [address] [facility] [address] [place] [id number] Referral ID Status Reason Start Date Expiration Date Visits Requested Visits Authorized [id number] 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 [...] neuropathy (HCC) Procedures CONSULT TO ENDOCRINOLOGY OFFICE/OUTPATIENT [facility] [place] 60-74 MINUTES Ignacio Cheatham MD [address] [place] [address] Referral ID Status Reason Start Date Expiration Date V isits Requested Visits Authorized [id number] Closed PCP Requested Referral 05/08/2021 05/08/2022 1 1 Reason Comments Patient Education Reason Comments Transplant Evaluation Reason Comments Patient Education Assessment Specialty Diagnoses / Procedures Referred By Contac t Referred To Contact CT IMAGING Diagnoses Pre-transplant evaluation for kidney transplant Procedures CT ABD/PEL WO IVCON CT ABD & PELVIS W/O CONTRAST Linda Livingston MD [address] [place] [address] Ct Imaging Referral ID Status Reason Start Date Expiration Date V isits Requested Visits Authorized [id number] Closed Auto-Generated Referral Patient Cleared - INN [...] (HCC) Procedures CONSULT TO VASCULAR SURGERY OFFICE/OUTPATIENT [facility] [place] 60-74 MINUTES Fab Cochran, MOLDER TRIMMER.BLOCK PAVER [address] [place] [address] Referral ID Status Reason Start Date Expiration Date V isits Requested Visits Authorized [id number] Closed PCP Requested Referral 08/01/2021 07/30/2022 1 [...] neuropathy (HCC) Procedures CONSULT TO ENDOCRINOLOGY OFFICE/OUTPATIENT [facility] [place] 60-74 MINUTES Ignacio Cheatham MD [address] [place] [address] Reason Comments Nurse Triage Call Reason Comments Head Congestion chest congestion, josef dyaches, sore throat, headache, nausea x 2 days Reason Comments Spirometry Specialty Diagnoses / Procedures Referred By Contac t Referred To Contact [facility] Diagnoses Pulmonary nodules Procedures SPIROMETRY - BASELINE AND POST DILATOR BRNCDILAT RSPSE SPMTRY PRE&POST-BRNCDILAT ADMN Dorene Macias MD [address] [place] [address] [facility] [address] [place] [id number] Referral ID Status Reason Start Date Expiration Date V isits Requested Visits Authorized [id number] Closed Auto-Generate d Referral 10/28/2021 11/27/2022 1 1 Specialty Diagnoses / Procedures Referred By Contac t Referred To Contact Diagnoses Poorly controlled type 2 diabetes mellitus (HCC) Procedures CONSULT TO DIABETES EDUCATION OFFICE/OUTPATIENT [facility] [place] 60-74 MINUTES Rojelio Clark MD [address] [place] [address] Referral ID Status Reason Start Date Expiration Date V isits Requested Visits Authorized [id number] Closed PCP Requested Referral 10/02/2021 10/02/2022 1 1 Specialty Diagnoses / Procedures Referred By Contac t Referred To Contact [facility] Diagnoses Pulmonary nodules Procedures LUNG VOLUMES Dorene Macias MD [address] [place] [address] [facility] [address] [place] [address] Referral ID Status Reason Start Date Expiration Date V isits Requested Visits Authorized [id number] Closed Auto-Generate d Referral 10/28/2021 11/27/2022 1 1 Specialty Diagnoses / Procedures Referred By Contac t Referred To Contact [facility] Diagnoses Pulmonary nodules Procedures LUNG DIFFUSION CAPACITY (DLCO) DIFFUSING CAPACITY Dorene Macias MD [address] [place] [address] [facility] [address] [place] [address] Referral ID Status Reason Start Date Expiration Date V isits Requested Visits Authorized [id number] Closed Auto-Generate d Referral 10/28/2021 11/27/2022 1 1 Reason Comments Refill Request Reason Comments Chronic Kidney Disease Monthly Touch Poi nt Call - OTP Reason Onset Date Comments Refill Request 12/05/2021 Reason Comments New Patient Specialty Diagnoses / Procedures Referred By Contac t Referred To Contact Diagnoses Anemia of renal disease Procedures CONSULT TO HEMATOLOGY/ONCOLOGY OFFICE/OUTPATIENT NEW HIGH MDM 60-74 MINUTES Fab Cochran, MOLDER TRIMMER.BLOCK PAVER [address] [place] [address] Referral ID Status Reason Start Date Expiration Date V isits Requested Visits Authorized [id number] Closed PCP Requested Referral 12/05/2021 12/04/2022 1 1 Reason Comments Results Treatment Planning Reason Comments Chronic Kidney Disease OTP - monthly caleb ch point call Reason Comments Non-Chemotherapy Treatment Specialty Diagnoses / Procedures [facility] Ref[facility] To Contact Diagnoses Iron malabsorption H/O gastric bypass Chronic kidney disease (CKD), stage IV (severe) (HCC) Anemia in chronic kidney disease Procedures IRON SUCROSE INJECTION PER 1 MG Teagan Spencer MD [address] [place] [address] [facility] [address] [place] [address] Referral ID Status Reason Start Date Expiration Date V isits Requested Visits Authorized [id number] Authorized 12/24/2021 02/26/2022 5 5 Reason Comments Imm/Inj Specialty Diagnoses / Procedures Referred By Contac t Referred To Contact Diagnoses Iron malabsorption H/O gastric bypass Chronic kidney disease (CKD), stage IV (severe) (HCC) Anemia of renal disease Procedures INJ RETACRIT NON-ESRD USE (RETACRIT) Teagan Spencer MD [address] [place] [address] [facility] [address] [place] [address] Referral ID Status Reason Start Date Expiration Date V isits Requested Visits Authorized [id number] Authorized 12/18/2021 03/01/2022 99 99 Reason Comments Pain (foot) left x few days, uns ure of injury, bruising Specialty Diagnoses / Procedures Referred By Allison t Referred To Contact Podiatry Diagnoses Poorly controlled diabetes mellitus (HCC) Onychomycosis Procedures CONSULT TO PODIATRY OFFICE/OUTPATIENT NEW HIGH MDM 60-74 MINUTES Ignacio Cheatham MD [address] [place] [address] Referral ID Status Reason Start Date Expiration Date V isits Requested Visits Authorized [id number] Closed PCP Requested Referral 03/26/2021 03/26/2022 1 [...] NON-ESRD USE (RETACRIT) Teagan Spencer MD [address] [place] [address] [facility] [address] [place] [address] Referral ID Status Reason Start Date Expiration Date V isits Requested Visits Authorized [id number] Authorized 12/18/2021 03/01/2023 99 99 Reason Comments Patient Update Vascular appt Reason Comments CKD Follow Up Optimal Transition P rogram/Prep for Dialysis Reason Comments ER F/U Reason Comments [place] Placement Reason Comments [facility] - ED Follow Up Reason Comments Dialysis Reason Onset Date Comments CKD Follow Up Optimal Transiti on Program Patient Update 09/16/2022 Reason Comments Return Call Request Kidney Txp Evaluatio n Status Reason Comments Home Health Physical Therapy Order Reque st Reason Onset Date Comments Refill Request 10/14/2022 Reason Comments [facility] Reason Comments Hospital F/U Reason Comments ER F/U [facility] 10/30 for bilater al hand pain Reason Comments Short Term Disabiity Forms Reason Comments [facility], PT d/c pt on 3 Reason Comments Urinary Frequency Frequency and burnin g x 3 days Reason Comments Erroneous encounter-disregard Reason Comments Short term disability paperwork Reason Comments Established Patient Right knee pain - CT scan (09/12/2022), US (10/15/2022) and xray from [facility] Specialty Diagnoses / Procedures Referred By Allison beasley Referred To Contact Orthopedics Diagnoses Pain of right lower extremity Procedures CONSULT TO ORTHOPAEDICS OFFICE/OUTPATIENT [facility] [place] 60-74 MINUTES Ignacio Cheatham MD [address] [place] [address] Referral ID Status Reason Start Date Expiration Date V isits Requested Visits Authorized [id number] Closed PCP Requested Referral 10/20/2022 10/20/2023 1 1 Reason Comments Follow Up 5 weeks post visit right tibia stress fr acture Reason Comments Pt going to [facility] ER Reason Comments PA--TRULICITY Reason Comments Radiology CT Specialty Diagnoses / Procedures Referred By Allison beasley Referred To Contact CT IMAGING Diagnoses Lung nodules Procedures CT CHEST WO IVCON DIAGNOSTIC COMPUTED TOMOGRAPHY THORAX W/O CNTRST Ignacio Cheatham MD [address] [place] [address] [place] [id number] Referral ID Status Reason Start Date Expiration Date V isits Requested Visits Authorized [id number] Closed Auto-Generate d Referral 03/20/2023 04/18/2023 1 1 Reason Comments Results Reason Comments Diabetic Eye Exam Type 2 IDDM Specialty Diagnoses / Procedures Referred By Contac t Referred To Contact Ophthalmology Diagnoses Type 2 diabetes, controlled, with neuropathy (HCC) Procedures CONSULT TO OPHTHALMOLOGY OFFICE/OUTPATIENT [facility] [place] 60-74 MINUTES Ignacio Cheatham MD [address] [place] [address] Referral ID Status Reason Start Date Expiration Date V isits Requested Visits Authorized [id number] Closed PCP Requested Referral 08/11/2022 08/11/2023 1 1 Reason Comments Established Patient Follow Up Pain Swelling Numbness Diabetic Foot Care Diabetic Foot Ulcer Specialty Diagnoses / Procedures Referred By Contac t Referred To Contact Podiatry Diagnoses Neuropathy Type 2 diabetes, controlled, with neuropathy (HCC) Procedures CONSULT TO PODIATRY OFFICE/OUTPATIENT [facility] [place] 60 MINUTES Ignacio Cheatham MD [address] [place] [address] Referral ID Status Reason Start Date Expiration Date V isits Requested Visits Authorized [id number] Closed PCP Requested Referral 03/13/2023 03/12/2024 1 1 Reason Onset Date Comments Requesting apt for pt 06/12/2023 Reason Comments [place] Dr[employer] Multiple Spindle Reason Comments FYI Reason Comments Post Op [...] (HCC) Procedures CONSULT TO VASCULAR SURGERY OFFICE/OUTPATIENT [facility] [place] 60 MINUTES Tresa Marcum APRN.CNP [address] [place] [address] Referral ID Status Reason Start Date Expiration Date V isits Requested Visits Authorized [id number] Closed PCP Requested Referral 12/11/2023 12/10/2024 1 1 Reason Comments Hospital F/U Reason Comments Medicaid Program Form Reason Comments Dental Problem R lower tooth pain x 3 days increasing, swelling Reason Comments Recheck 3 month follow up Reason Onset Date Comments Refill Request 06/08/2024 Reason Comments New Patient Evaluation Specialty Diagnoses / Procedures [facility] Referred To Contact Diagnoses CASSIE (obstructive sleep apnea) Procedures CONSULT TO SLEEP MEDICINE - ADULT OFFICE/OUTPATIENT NEW HIGH MDM 60 MINUTES Sha Myrick MD [address] [place] [address] Phone: tel: fax: Referral ID Status Reason Start Date Expiration Date V isits Requested Visits Authorized [id number] Closed PCP Requested Referral 01/12/2024 01/11/2025 1 1 Reason Comments type 2 diabetes Specialty Diagnoses / Procedures [facility] Referred To Contact Endocrinology Diagnoses Type 2 diabetes, controlled, with neuropathy (HCC) Procedures CONSULT TO ENDOCRINOLOGY OFFICE/OUTPATIENT NEW HIGH MDM 60 MINUTES Tresa Marcum, PATRICE.BLOCK PAVER [address] [place] [address] Phone: tel: fax: Referral ID Status Reason Start Date Expiration Date V isits Requested Visits Authorized [id number] Closed PCP Requested Referral 06/01/2024 06/01/2025 1 1 Reason Comments [facility] - Other Prior Auth Reason Comments Diabetic Eye Exam Type 2 Specialty Diagnoses / Procedures [facility] Referred To Contact CT IMAGING Diagnoses Lung nodules Procedures CT CHEST WO IVCON DIAGNOSTIC COMPUTED TOMOGRAPHY THORAX W/O CNTRST Tresa Marcum, PATRICE.BLOCK PAVER [address] [place] [address] Phone: tel: fax: [place] [address] Referral ID Status Reason Start Date Expiration Date V isits Requested Visits Authorized [id number] Closed Auto-Generate d Referral 06/01/2024 07/01/2025 1 [...] Care Teams (unrecognized sec tion and content) Software Qa Manager Relationship Specialty Start Date End Date Ignacio Cheatham MD [address] [place] [address] PCP - General Family Practice 04/16/17 [facility] [address] [place] [address] Pharmacist Pharmacy 05/17/20 Software Qa Manager Relationship Specialty Start Date End Date Ignacio Cheatham MD [address] [place] [address] PCP - General Family Practice 04/16/17 [facility] [address] [place] [address] Pharmacist Pharmacy 05/17/20 Software Qa Manager Relationship Specialty Start Date End Date Ignacio Cheatham MD [address] [place] [address] PCP - General Family Practice 04/16/17 [facility] [address] [place] [address] Pharmacist Pharmacy 05/17/20 Software Qa Manager Relationship Specialty Start Date End Date Ignacio Cheatham MD [address] [place] [address] PCP - General Family Practice 04/16/17 [facility] [address] [place] [address] Pharmacist Pharmacy 05/17/20 Software Qa Manager Relationship Specialty Start Date End Date Ignacio Cheatham MD [address] [place] [address] PCP - General Family Practice 04/16/17 [facility] [address] [place] [address] Pharmacist Pharmacy 05/17/20 Software Qa Manager Relationship Specialty Start Date End Date Ignacio Cheatham MD [address] [place] [address] PCP - General Family Practice 04/16/17 [facility] [address] [place] [address] Pharmacist Pharmacy 05/17/20 Software Qa Manager Relationship Specialty Start Date End Date Ignacio Cheatham MD [address] [place] [address] PCP - General Family Practice 04/16/17 [facility] [address] [place] [address] Pharmacist Pharmacy 05/17/20 Software Qa Manager Relationship Specialty Start Date End Date Ignacio Cheatham MD [address] [place] [address] PCP - General Family Practice 04/16/17 [facility] [address] [place] [address] Pharmacist Pharmacy 05/17/20 Software Qa Manager Relationship Specialty Start Date End Date Ignacio Cheatham MD [address] [place] [address] PCP - General Family Practice 04/16/17 [facility] [address] [place] [address] Pharmacist Pharmacy 05/17/20 Software Qa Manager Relationship Specialty Start Date End Date Ignacio Cheatham MD [address] [place] [address] PCP - General Family Practice 04/16/17 Vicki White, [facility] [address] [place] [address] Pharmacist Pharmacy 05/17/20 Software Qa Manager Relationship Specialty Start Date End Date Ignacio Cheatham MD [address] [place] [address] PCP - General Family Practice 04/16/17 Vicki White, [facility] [address] [place] [address] Pharmacist Pharmacy 05/17/20 Software Qa Manager Relationship Specialty Start Date End Date Ignacio Cheatham MD [address] [place] [address] PCP - General Family Practice 04/16/17 [facility] [address] [place] [address] Pharmacist Pharmacy 05/17/20 Software Qa Manager Relationship Specialty Start Date End Date Ignacio Cheatham MD [address] [place] [address] PCP - General Family Practice 04/16/17 Kaiserivanna Nicolasjodi, [facility] [address] [place] [address] Pharmacist Pharmacy 05/17/20 Software Qa Manager Relationship Specialty Start Date End Date Ignacio Cheatham MD [address] [place] [address] PCP - General Family Practice 04/16/17 Vicki White, [facility] [address] [place] [address] Pharmacist Pharmacy 05/17/20 Software Qa Manager Relationship Specialty Start Date End Date Ignacio Cheatham MD [address] [place] [address] PCP - General Family Practice 04/16/17 [facility] [address] [place] [address] Pharmacist Pharmacy 05/17/20 Software Qa Manager Relationship Specialty Start Date End Date Ignacio Cheatham MD [address] [place] [address] PCP - General Family Practice 04/16/17 [facility] [address] [place] [address] Pharmacist Pharmacy 05/17/20 Software Qa Manager Relationship Specialty Start Date End Date Ignacio Cheatham MD [address] [place] [address] PCP - General Family Practice 04/16/17 [facility] [address] [place] [address] Pharmacist Pharmacy 05/17/20 Software Qa Manager Relationship Specialty Start Date End Date Ignacio Cheatham MD [address] [place] [address] PCP - General Family Practice 04/16/17 [facility] [address] [place] [address] Pharmacist Pharmacy 05/17/20 Software Qa Manager Relationship Specialty Start Date End Date Ignacio Cheatham MD [address] [place] [address] PCP - General Family Practice 04/16/17 [facility] [address] [place] [address] Pharmacist Pharmacy 05/17/20 Software Qa Manager Relationship Specialty Start Date End Date Ignacio Cheatham MD [address] [place] [address] PCP - General Family Practice 04/16/17 [facility] [address] [place] [address] Pharmacist Pharmacy 05/17/20 Software Qa Manager Relationship Specialty Start Date End Date Ignacio Cheatham MD [address] [place] [address] PCP - General Family Practice 04/16/17 [facility] [address] [place] [address] Pharmacist Pharmacy 05/17/20 Software Qa Manager Relationship Specialty Start Date End Date Ignacio Cheatham MD [address] [place] [address] PCP - General Family Practice 04/16/17 [facility] [address] [place] [address] Pharmacist Pharmacy 05/17/20 Software Qa Manager Relationship Specialty Start Date End Date Ignacio Cheatham MD [address] [place] [address] PCP - General Family Practice 04/16/17 [facility] [address] [place] [address] Pharmacist Pharmacy 05/17/20 Software Qa Manager Relationship Specialty Start Date End Date Ignacio Cheatham MD [address] [place] [address] PCP - General Family Practice 04/16/17 KaiserVicki, [facility] [address] [place] [address] Pharmacist Pharmacy 05/17/20 Software Qa Manager Relationship Specialty Start Date End Date Ignacio Cheatham MD [address] [place] [address] PCP - General Family Medicine 04/16/17 Vicki White, [facility] [address] [place] [address] Pharmacist Pharmacy 05/17/20 Software Qa Manager Relationship Specialty Start Date End Date Ignacio Cheatham MD [address] [place] [address] PCP - General Family Medicine 04/16/17 Vicki White, [facility] [address] [place] [address] Pharmacist Pharmacy 05/17/20 Software Qa Manager Relationship Specialty Start Date End Date Ignacio Cheatham MD [address] [place] [address] PCP - General Family Medicine 04/16/17 Vicki White, [facility] [address] [place] [address] Pharmacist Pharmacy 05/17/20 Software Qa Manager Relationship Specialty Start Date End Date Ignacio Cheatham MD [address] [place] [address] PCP - General Family Medicine 04/16/17 Vicki White, [facility] [address] [place] [address] Pharmacist Pharmacy 05/17/20 Software Qa Manager Relationship Specialty Start Date End Date Ignacio Cheatham MD [address] [place] [address] PCP - General Family Medicine 04/16/17 Vicki hWite, [facility] [address] [place] [address] Pharmacist Pharmacy 05/17/20 Software Qa Manager Relationship Specialty Start Date End Date Ignacio Cheatham MD [address] [place] [address] PCP - General Family Medicine 04/16/17 Vicki White, [facility] [address] [place] [address] Pharmacist Pharmacy 05/17/20 Software Qa Manager Relationship Specialty Start Date End Date Ignacio Cheatham MD [address] [place] [address] PCP - General Family Medicine 04/16/17 [facility] [address] [place] [address] Pharmacist Pharmacy 05/17/20 Software Qa Manager Relationship Specialty Start Date End Date Ignacio Cheatham MD [address] [place] [address] PCP - General Family Medicine 04/16/17 [facility] [address] [place] [address] Pharmacist Pharmacy 05/17/20 Kaylin Carranza (Rn), RN Specialty [facility] 12/06/21 Software Qa Manager Relationship Specialty Start Date End Date Ignacio Cheatham MD [address] [place] [address] PCP - General Family Medicine 04/16/17 [facility] [facility] [address] [place] [address] Pharmacist Pharmacy 05/17/20 Kaylin Carranza (Rn), RN Specialty [facility] 12/06/21 Software Qa Manager Relationship Specialty Start Date End Date Ignacio Cheatham MD [address] [place] [address] PCP - General Family Medicine 04/16/17 [facility] [address] [place] [address] Pharmacist Pharmacy 05/17/20 Kaylin Carranza (Rn), RN Specialty [facility] 12/06/21 Software Qa Manager Relationship Specialty Start Date End Date Ignacio Cheatham MD [address] [place] [address] PCP - General Family Medicine 04/16/17 [facility] [address] [place] [address] Pharmacist Pharmacy 05/17/20 Kaylin Carranza (Rn), RN Specialty [facility] 12/06/21 Software Qa Manager Relationship Specialty Start Date End Date Ignacio Cheatham MD [address] [place] [address] PCP - General Family Medicine 04/16/17 [facility] [address] [place] [address] Pharmacist Pharmacy 05/17/20 Kaylin Carranza (Rn), RN Specialty [facility] 12/06/21 Software Qa Manager Relationship Specialty Start Date End Date Ignacio Cheatham MD [address] [place] [address] PCP - General Family Medicine 04/16/17 [facility] [address] [place] [address] Pharmacist Pharmacy 05/17/20 Kaylin Carranza (Rn), RN Specialty [facility] 12/06/21 Software Qa Manager Relationship Specialty Start Date End Date Ignacio Cheatham MD [address] [place] [address] PCP - General Family Medicine 04/16/17 [facility] [address] [place] [address] Pharmacist Pharmacy 05/17/20 Kaylin Carranza (Rn), RN Specialty [facility] 12/06/21 Software Qa Manager Relationship Specialty Start Date End Date Ignacio Cheatham MD [address] [place] [address] PCP - General Family Medicine 04/16/17 [facility] [address] [facility] [place] [address] Pharmacist Pharmacy 05/17/20 Kaylin Carranza (Rn), RN Specialty [facility] 12/06/21 Software Qa Manager Relationship Specialty Start Date End Date Ignacio Cheatham MD [address] [place] [address] PCP - General Family Medicine 04/16/17 [facility] [address] [place] [address] Pharmacist Pharmacy 05/17/20 Kaylin Carranza (Rn), RN Specialty [facility] 12/06/21 Software Qa Manager Relationship Specialty Start Date End Date Ignacio Cheatham MD [address] [place] [address] PCP - General Family Medicine 04/16/17 [facility] [address] [place] [place] [address] Pharmacist Pharmacy 05/17/20 Kaylin Carranza (Rn), RN Specialty [facility] 12/06/21 Software Qa Manager Relationship Specialty Start Date End Date Ignacio Cheatham MD [address] [facility] [place] [address] PCP - General Family Medicine 04/16/17 [facility] [address] [place] [address] Pharmacist Pharmacy 05/17/20 Kaylin Carranza (Rn), RN Specialty [facility] 12/06/21 Software Qa Manager Relationship Specialty Start Date End Date Ingacio Cheatham MD [address] [place] [address] PCP - General Family Medicine 04/16/17 [facility] [address] [place] [address] Pharmacist Pharmacy 05/17/20 Kaylin Carranza (Rn), RN Specialty [facility] 12/06/21 Software Qa Manager Relationship Specialty Start Date End Date Ignacio Cheatham MD [address] [place] [address] PCP - General Family Medicine 04/16/17 [facility] [address] [place] [address] Pharmacist Pharmacy 05/17/20 Kaylin Carranza (Rn), RN Specialty [facility] 12/06/21 Software Qa Manager Relationship Specialty Start Date End Date Ignacio Cheatham MD [address] [place] [address] PCP - General Family Medicine 04/16/17 [facility] [address] [place] [address] Pharmacist Pharmacy 05/17/20 Kaylin Carranza, RN Specialty [facility] 12/06/21 Software Qa Manager Relationship Specialty Start Date End Date Ignacio Cheatham MD [address] [place] [address] PCP - General Family Medicine 04/16/17 [facility] [address] [place] [address] Pharmacist Pharmacy 05/17/20 Kaylin Carranza, RN Specialty [facility] 12/06/21 Software Qa Manager Relationship Specialty Start Date End Date Ignacio Cheatham MD [address] [place] [address] PCP - General Family Medicine 04/16/17 [facility] [address] [place] [address] Pharmacist Pharmacy 05/17/20 Kaylin Carranza, RN Specialty [facility] 12/06/21 Software Qa Manager Relationship Specialty Start Date End Date Ignacio Cheatham MD [address] [place] [address] PCP - General Family Medicine 04/16/17 [facility] [address] [place] [address] Pharmacist Pharmacy 05/17/20 Kaylin Carranza RN Specialty [facility] 12/06/21 Software Qa Manager Relationship Specialty Start Date End Date Ignacio Cheatham MD [address] [place] [address] PCP - General Family Medicine 04/16/17 [facility] [address] [place] [address] Pharmacist Pharmacy 05/17/20 Kaylin Carranza RN Specialty [facility] 12/06/21 Software Qa Manager Relationship Specialty Start Date End Date Ignacio Cheatham MD [address] [place] [address] PCP - General Family Medicine 04/16/17 Vicki White, [facility] [address] [place] [address] Pharmacist Pharmacy 05/17/20 Kaylin Carranza, GRACE Specialty Lab[facility] 12/06/21 Software Qa Manager Relationship Specialty Start Date End Date Ignacio Cheatham MD [address] [place] [address] PCP - General Family Medicine 04/16/17 [facility] [address] [place] [address] Pharmacist Pharmacy 05/17/20 Kaylin Carranza, GRACE Specialty Lab[facility] 12/06/21 Software Qa Manager Relationship Specialty Start Date End Date Ignacio Cheatham MD [address] [place] [address] PCP - General Family Medicine 04/16/17 [facility] [address] [place] [address] Pharmacist Pharmacy 05/17/20 Kaylin Carranza RN Specialty [facility] 12/06/21 Software Qa Manager Relationship Specialty Start Date End Date Ignacio Cheatham MD [address] [place] [address] PCP - General Family Medicine 04/16/17 [facility] [address] [place] [address] Pharmacist Pharmacy 05/17/20 Kaylin Carranza RN Specialty [facility] 12/06/21 Software Qa Manager Relationship Specialty Start Date End Date Ignacio Cheatham MD [address] [place] [address] PCP - General Family Medicine 04/16/17 [facility] [address] [place] [address] Pharmacist Pharmacy 05/17/20 Kaylin Carranza, GRACE Specialty Lab[facility] 12/06/21 Software Qa Manager Relationship Specialty Start Date End Date Ignacio Cheatham MD [address] [place] [address] PCP - General Family Medicine 04/16/17 [facility] [address] [place] [address] Pharmacist Pharmacy 05/17/20 Kaylin Carranza, GRACE Specialty [facility] 12/06/21 Software Qa Manager Relationship Specialty Start Date End Date Ignacio Cheatham MD [address] [place] [address] PCP - General Family Medicine 04/16/17 [facility] [address] [place] [address] Pharmacist Pharmacy 05/17/20 Kaylin Carranza, GRACE Specialty [facility] 12/06/21 Software Qa Manager Relationship Specialty Start Date End Date Ignacio Cheatham MD [address] [place] [address] PCP - General Family Medicine 04/16/17 [facility] [address] [place] [address] Pharmacist Pharmacy 05/17/20 Kaylin Carrnaza RN Specialty [facility] 12/06/21 Software Qa Manager Relationship Specialty Start Date End Date Ignacio Cheatham MD [address] [place] [address] PCP - General Family Medicine 04/16/17 [facility] [address] [place] [address] Pharmacist Pharmacy 05/17/20 Kaylin Carranza, GRACE Specialty [facility] 12/06/21 Software Qa Manager Relationship Specialty Start Date End Date Ignacio Cheatham MD [address] [place] [address] PCP - General Family Medicine 04/16/17 [facility] [address] [place] [address] Pharmacist Pharmacy 05/17/20 Kaylin Carranza, RN Specialty [facility] 12/06/21 Software Qa Manager Relationship Specialty Start Date End Date Ignacio Cheatham MD [address] [place] [address] PCP - General Family Medicine 04/16/17 [facility] [address] [place] [address] Pharmacist Pharmacy 05/17/20 Kaylin Carranza, RN Specialty [facility] 12/06/21 Software Qa Manager Relationship Specialty Start Date End Date Ignacio Cheatham MD [address] [place] [address] PCP - General Family Medicine 04/16/17 [facility] [address] [place] [address] Pharmacist Pharmacy 05/17/20 Kaylin Carranza, RN Specialty [facility] 12/06/21 Software Qa Manager Relationship Specialty Start Date End Date Ignacio Cheatham MD [address] [place] [address] PCP - General Family Medicine 04/16/17 [facility] [address] [place] [address] Pharmacist Pharmacy 05/17/20 Kaylin Carranza, RN Specialty [facility] 12/06/21 Lauren Bello [facility] Pharmacist Pharmacy 08/05/22 08/06/22 Chrissy Nieto, GRACE [address] [place] [id number] Primary Care Pallet Rectifier 08/05/22 09/02/22 Software Qa Manager Relationship Specialty Start Date End Date Ignacio Cheatham MD [address] [place] [address] PCP - General Family Medicine 04/16/17 [facility] [address] [place] [address] Pharmacist Pharmacy 05/17/20 Kaylin Carranza, RN Specialty [facility] 12/06/21 Lauren Bello [facility] Pharmacist Pharmacy 08/05/22 08/06/22 Chrissy Nieto, RN [address] [place] [address] Primary Care Pallet Rectifier 08/05/22 09/02/22 Software Qa Manager Relationship Specialty Start Date End Date Ignacio Cheatham MD [address] [place] [address] PCP - General Family Medicine 04/16/17 [facility] [address] [place] [address] Pharmacist Pharmacy 05/17/20 Kaylin Carranza RN Specialty [facility] 12/06/21 Lauren Bello [facility] Pharmacist Pharmacy 08/05/22 08/06/22 Chrissy Nieto, RN [address] [place], [place] [id number] Primary Care Pallet Rectifier 08/05/22 09/02/22 Software Qa Manager Relationship Specialty Start Date End Date Ignacoi Cheatham MD [address] [place] [address] PCP - General Family Medicine 04/16/17 [facility] [address] [place] [address] Pharmacist Pharmacy 05/17/20 Kaylin Carranza, GRACE Specialty [facility] 12/06/21 Lauren Bello [facility] Pharmacist Pharmacy 08/05/22 08/06/22 Chrissy Nieto, RN [address] [facility] [place] [address] Primary Care Pallet Rectifier 08/05/22 09/02/22 Software Qa Manager Relationship Specialty Start Date End Date Ignacio Cheatham MD [address] [place] [address] PCP - General Family Medicine 04/16/17 Vicki White, [facility] [address] [place] [address] Pharmacist Pharmacy 05/17/20 Kaylin Carranza, GRACE Specialty [facility] 12/06/21 Chrissy Nieto, RN [address] [place] [address] Primary Care Pallet Rectifier 08/05/22 09/02/22 Software Qa Manager Relationship Specialty Start Date End Date Ignacio Cheatham MD [address] [place] [address] PCP - General Family Medicine 04/16/17 Vicki White, [facility] [address] [place] [address] Pharmacist Pharmacy 05/17/20 Kaylin Carranza, GRACE Specialty [facility] 12/06/21 Chrissy Nieto, GRACE [address] [place] [address] Primary Care Pallet Rectifier 08/05/22 09/02/22 Software Qa Manager Relationship Specialty Start Date End Date Ignacio Cheatham MD [address] [place] [address] PCP - General Family Medicine 04/16/17 Vicki White, [facility] [address] [place] [address] Pharmacist Pharmacy 05/17/20 Kaylin Carranza, GRAEC Specialty Lab[facility] 12/06/21 Chrissy Nieto, RN [address] [place], [place] [id number] Primary Care Pallet Rectifier 08/05/22 09/02/22 Software Qa Manager Relationship Specialty Start Date End Date Ignacio Cheatham MD [address] [place] [address] PCP - General Family Medicine 04/16/17 Vicki White, [facility] [address] [place] [address] Pharmacist Pharmacy 05/17/20 Kaylin Carranza, RN Specialty [facility] 12/06/21 Chrissy Nieto, GRACE [address] [place], [place] [id number] Primary Care Pallet Rectifier 08/05/22 09/02/22 Software Qa Manager Relationship Specialty Start Date End Date Ignacio Cheatham MD [address] [place] [address] PCP - General Family Medicine 04/16/17 Vicki White, [facility] [address] [place] [address] Pharmacist Pharmacy 05/17/20 Kaylin Carranza, RN Specialty [facility] 12/06/21 Chrissy Nieto, RN [address] [place] [address] Primary Care Pallet Rectifier 08/05/22 09/02/22 Software Qa Manager Relationship Specialty Start Date End Date Ignacio Cheatham MD [address] [place] [address] PCP - General Family Medicine 04/16/17 Vicki White, [facility] [address] [place] [address] Pharmacist Pharmacy 05/17/20 Kaylin Carranza, RN Specialty [facility] 12/06/21 Team Status: Active Member Role Status Dates Dr. Ignacio Cheatham MD Family Provider Active Dr. Ignacio Cheatham MD Primary Care Provider Active Team Status: Inactive Member Role Status Dates Dr. Ignacio Cheatham MD Primary Care Provider Active Dr. Quentin Kim DO Emergency Provider Active Software Qa Manager Relationship Specialty Start Date End Date Ignacio Cheatham MD [address] [place] [address] PCP - General Family Medicine 04/16/17 [facility] [address] [place] [address] Pharmacist Pharmacy 05/17/20 Kaylin Carranza, GRACE Specialty [facility] 12/06/21 Software Qa Manager Relationship Specialty Start Date End Date Ignacio Cheatham MD [address] [place] [address] PCP - General Family Medicine 04/16/17 [facility] [address] [place] [address] Pharmacist Pharmacy 05/17/20 Kaylin Carranza, GRACE Specialty Lab[facility] 12/06/21 Software Qa Manager Relationship Specialty Start Date End Date Ignacio Cheatham MD [address] [place] [address] PCP - General Family Medicine 04/16/17 [facility] [address] [place] [address] Pharmacist Pharmacy 05/17/20 Kaylin Carranza, GRACE Specialty [facility] 12/06/21 Software Qa Manager Relationship Specialty Start Date End Date Ignacio Cheatham MD [address] [place] [address] PCP - General Family Medicine 04/16/17 Vicki White, [facility] [address] [place] [address] Pharmacist Pharmacy 05/17/20 Kaylin Carranza, GRACE Specialty Lab[facility] 12/06/21 Software Qa Manager Relationship Specialty Start Date End Date Ignacio Cheatham MD [address] [place], [place] [address]01 PCP - General Family Medicine 04/16/17 [facility] [address] [place] [address] Pharmacist Pharmacy 05/17/20 Kaylin Carranza, GRACE Specialty Lab[facility] 12/06/21 Team Status: Active Member Role [...] DO Attending Provider, Emergency Provide r Active Software Qa Manager Relationship Specialty Start Date End Date Ignacio Cheatham MD [address] [place] [address] PCP - General Family Medicine 04/16/17 [facility] [address] [place] [address] Pharmacist Pharmacy 05/17/20 Software Qa Manager Relationship Specialty Start Date End Date Ignacio Cheatham MD [address] [place] [address] PCP - General Family Medicine 04/16/17 Vicki White, [facility] [address] [place] [address] Pharmacist Pharmacy 05/17/20 Software Qa Manager Relationship Specialty Start Date End Date Ignacio Cheatham MD [address] [place] [address] PCP - General Family Medicine 04/16/17 Vicki White, [facility] [address] [place] [address] Pharmacist Pharmacy 05/17/20 Software Qa Manager Relationship Specialty Start Date End Date Ignacio Cheatham MD [address] [place] [address] PCP - General Family Medicine 04/16/17 Vicki White, [facility] [address] [place] [address] Pharmacist Pharmacy 05/17/20 Software Qa Manager Relationship Specialty Start Date End Date Ignacio Cheatham MD [address] [place] [address] PCP - General Family Medicine 04/16/17 Vicki White, [facility] [address] [place] [address] Pharmacist Pharmacy 05/17/20 Software Qa Manager Relationship Specialty Start Date End Date Ignacio Cheatham MD [address] [place] [address] PCP - General Family Medicine 04/16/17 Vicki White, [facility] [address] [place] [address] Pharmacist Pharmacy 05/17/20 Software Qa Manager Relationship Specialty Start Date End Date Ignacio Cheatham MD [address] [place] [address] PCP - General Family Medicine 04/16/17 Vicki White, [facility] [address] [place] [address] Pharmacist Pharmacy 05/17/20 Team Status: Active Member [...] Dr. Audra Ahuja MD Emergency Provider Active Software Qa Manager Relationship Specialty Start Date End Date Ignacio Cheatham MD [address] [place] [address] PCP - General Family Medicine 04/16/17 [facility] [address] [place] [address] Pharmacist Pharmacy 05/17/20 Software Qa Manager Relationship Specialty Start Date End Date Ignacio Cheatham MD [address] [place] [address] PCP - General Family Medicine 04/16/17 KaiserNicolas, [facility] [address] [place] [address] Pharmacist Pharmacy 05/17/20 Team Status: Inactive Member [...] Dr. Sofía Hill MD Attending Provider Active Software Qa Manager Relationship Specialty Start Date End Date Ignacio Cheatham MD [address] [place] [address] PCP - General Family Medicine 04/16/17 [facility] [address] [place] [address] Pharmacist Pharmacy 05/17/20 Software Qa Manager Relationship Specialty Start Date End Date Ignacio Cheatham MD [address] [place] [address] PCP - General Family Medicine 04/16/17 [facility] [address] [place] [address] Pharmacist Pharmacy 05/17/20 Software Qa Manager Relationship Specialty Start Date End Date Ignacio Cheatham MD [address] [place] [address] PCP - General Family Medicine 04/16/17 [facility] [address] [place] [address] Pharmacist Pharmacy 05/17/20 Software Qa Manager Relationship Specialty Start Date End Date Ignacio Cheatham MD [address] [place] [address] PCP - General Family Medicine 04/16/17 [facility] [address] [place] [address] Pharmacist Pharmacy 05/17/20 Software Qa Manager Relationship Specialty Start Date End Date Ignacio Cheatham MD [address] [place] [address] PCP - General Family Medicine 04/16/17 KaiserVicki goncalves, [facility] [address] [place] [address] Pharmacist Pharmacy 05/17/20 Software Qa Manager Relationship Specialty Start Date End Date Ignacio Cheatham MD [address] [place] [address] PCP - General Family Medicine 04/16/17 KaiserVicki goncalves, [facility] [address] [place] [address] Pharmacist Pharmacy 05/17/20 Software Qa Manager Relationship Specialty Start Date End Date Ignacio Cheatham MD [address] [place] [address] PCP - General Family Medicine 04/16/17 Vicki White, [facility] [address] [place] [address] Pharmacist Pharmacy 05/17/20 Software Qa Manager Relationship Specialty Start Date End Date gInacio Cheatham MD [address] [place] [address] PCP - General Family Medicine 04/16/17 Kaiserivanna Nicolasjodi, [facility] [address] [place] [address] Pharmacist Pharmacy 05/17/20 Software Qa Manager Relationship Specialty Start Date End Date Ignacio Cheatham MD [address] [place] [address] PCP - General Family Medicine 04/16/17 [facility] [address] [place] [address] Pharmacist Pharmacy 05/17/20 Software Qa Manager Relationship Specialty Start Date End Date Ignacio Cheatham MD [address] [place] [address] PCP - General Family Medicine 04/16/17 [facility] [address] [place] [address] Pharmacist Pharmacy 05/17/20 Software Qa Manager Relationship Specialty Start Date End Date Ignacio Cheatham MD [address] [place] [address] PCP - General Family Medicine 04/16/17 [facility] [address] [place] [address] Pharmacist Pharmacy 05/17/20 Software Qa Manager Relationship Specialty Start Date End Date Ignacio Cheatham MD [address] [place] [address] PCP - General Family Medicine 04/16/17 KaiserivannaVicki, [facility] [address] [place] [address] Pharmacist Pharmacy 05/17/20 Kaylin Carranza, GRACE Specialty Laborer [facility] 12/06/2109/15 Chrissy Nieto, GRACE [address] [place] [address] Primary Care Pallet Rectifier 08/05/22 09/02/22 Software Qa Manager Relationship Specialty Start Date End Date Ignacio Cheatham MD [address] [place] [address] PCP - General Family Medicine 04/16/17 Vicki White, [facility] [address] [place] [address] Pharmacist Pharmacy 05/17/20 Software Qa Manager Relationship Specialty Start Date End Date Ignacio Cheatham MD [address] [place] [address] PCP - General Family Medicine 04/16/17 [facility] [address] [place] [address] Pharmacist Pharmacy 05/17/20 Kaylin Carranza RN Specialty [facility] 12/06/2109/15 Software Qa Manager Relationship Specialty Start Date End Date Ignacio Cheatham MD [address] [place] [address] PCP - General Family Medicine 04/16/17 [facility] [address] [place] [address] Pharmacist Pharmacy 05/17/20 Kaylin Carranza, GRACE Specialty Laborer [facility] 12/06/2109/15 Software Qa Manager Relationship Specialty Start Date End Date Ignacio Cheatham MD [address] [place] [address] PCP - General Family Medicine 04/16/17 Vicki White, [facility] [address] [place] [address] Pharmacist Pharmacy 05/17/20 Kaylin Carranza RN Specialty Laborer [facility] 12/06/2109/15 Chrissy Nieto, RN [address] [place] [address] Primary Care Pallet Rectifier 08/05/22 09/02/22 Software Qa Manager Relationship Specialty Start Date End Date Ignacio Cheatham MD [address] [place] [address] PCP - General Family Medicine 04/16/17 [facility] [address] [place] [address] Pharmacist Pharmacy 05/17/20 Team Status: Active Member [...] Dr. Raul Larkin MD Attending Provider Active Software Qa Manager Relationship Specialty Start Date End Date Ignacio Cheatham MD [address] [place] [address] PCP - General Family Medicine 04/16/17 [facility] [address] [place] [address] Pharmacist Pharmacy 05/17/20 Team Status: Active Member [...] MD Admit Provider, Attending Provid er Active Software Qa Manager Relationship Specialty Start Date End Date Ignacio Cheatham MD [address] [place] [address] PCP - General Family Medicine 04/16/17 [facility] [address] [place] [address] Pharmacist Pharmacy 05/17/20 Software Qa Manager Relationship Specialty Start Date End Date Ignacio Cheatham MD [address] [facility] [place] [address] PCP - General Family Medicine 04/16/17 [facility] [address] [place] [address] Pharmacist Pharmacy 05/17/20 Software Qa Manager Relationship Specialty Start Date End Date Ignacio Cheatham MD [address] [place] [address] PCP - General Family Medicine 04/16/17 [facility] [address] [place] [address] Pharmacist Pharmacy 05/17/20 Team Status: Active Member [...] Dr. Johnathon Robertson MD Emergency Provider Active Software Qa Manager Relationship Specialty Start Date End Date Ignacio Cheatham MD [address] [place] [address] PCP - General Family Medicine 04/16/17 Vicki White, [facility] [address] [place] [address] Pharmacist Pharmacy 05/17/20 Software Qa Manager Relationship Specialty Start Date End Date Ignacio Cheatham MD [address] [place] [address] PCP - General Family Medicine 04/16/17 [facility] [address] [place] [address] Pharmacist Pharmacy 05/17/20 Software Qa Manager Relationship Specialty Start Date End Date Ignacio Cheatham MD [address] [place] [address] PCP - General Family Medicine 04/16/17 Vicki White, [facility] [address] [place] [address] Pharmacist Pharmacy 05/17/20 Software Qa Manager Relationship Specialty Start Date End Date Ignacio Cheatham MD [address] [place] [address] PCP - General Family Medicine 04/16/17 [facility] [address] [place] [address] Pharmacist Pharmacy 05/17/20 Software Qa Manager Relationship Specialty Start Date End Date Ignacio Cheatham MD [address] [place] [address] PCP - General Family Medicine 04/16/17 Vicki White, [facility] [address] [place] [address] Pharmacist Pharmacy 05/17/20 Software Qa Manager Relationship Specialty Start Date End Date Ignacio Cheatham MD [address] [place] [address] PCP - General Family Medicine 04/16/17 Vicki White, [facility] [address] [place], [place] [address]78[address] Pharmacist Pharmacy 05/17/20 Software Qa Manager Relationship Specialty Start Date End Date Ignacio Cheatham MD [address] [place], [place] [id number] PCP - General Family Medicine 04/16/17 Vicki White, [facility] [address] [place], [place] [address] Pharmacist Pharmacy 05/17/20 Team Status: Inactive Member Role Status Dates Dr. Ignacio Cheatham MD Primary Care Provider Active Dr. Johnathon Robertson MD Attending Provider, Emergency Pro vider Active Team Status: Inactive Member Role Status Dates Dr. Ignacio hCeatham MD Primary Care Provider Active Dr. Neymar Toledo , Emergency Provider Active Software Qa Manager Relationship Specialty Start Date End Date Ignacio Cheatham MD [address] [place], [place] [id number] PCP - General Family Medicine 04/16/17 Software Qa Manager Relationship Specialty Start Date End Date Juliano Abdullahi [address] [place] [address] [facility] [place] [address] PCP - General 08/31/14 Software Qa Manager Relationship Specialty Start Date End Date Ignacio Cheatham MD [address] [place], [place] [id number] PCP - General Family Medicine 04/16/17 Software Qa Manager Relationship Specialty Start Date End Date Ignacio Cheatham MD [address] [place], [place] [id number] PCP - General Family Medicine 04/16/17 Software Qa Manager Relationship Specialty Start Date End Date Ignacio Cheatham MD [address] [place], [place] [address] PCP - General Family Medicine 04/16/17 Team [...] MD Primary Care Provider Active Cathy Dumont ROLLING MACHINE OPERATOR, ROLLING MACHINE OPERATOR-C Attending Provider, Referring Pro vider Active Software Qa Manager Relationship Specialty Start Date End Date Ignacio Cheatham MD [address] [place], [place] [address] PCP - General Family Medicine 04/16/17 Software Qa Manager Relationship Specialty Start Date End Date Ignacio Cheatham MD [address] [place], [place] [address] PCP - General Family Medicine 04/16/17 Software Qa Manager Relationship Specialty Start Date End Date Ignacio Cheatham MD [address] [place], [place] [id number] PCP - General Family Medicine 04/16/17 Software Qa Manager Relationship Specialty Start Date End Date Ignacio Cheatham MD [address] [place], [place] [address] PCP - General Family Medicine 04/16/17 Software Qa Manager Relationship Specialty Start Date End Date Ignacio Cheatham MD [address] [place] [address] PCP - General Family Medicine 04/16/17 [facility] [address] [place] [address] Pharmacist Pharmacy 05/17/20 05/27/23 Software Qa Manager Relationship Specialty Start Date End Date Ignacio Cheatham MD [address] [place] [address] PCP - General Family Medicine 04/16/17 [facility] [address] [place] [address] Pharmacist Pharmacy 05/17/20 05/27/23 Kaylin Carranza, GRACE Specialty Laborer [facility] 12/06/2109/15 Software Qa Manager Relationship Specialty Start Date End Date Ignacio Cheatham MD [address] [place] [address] PCP - General Family Medicine 04/16/17 [facility] [address] [place] [address] Pharmacist Pharmacy 05/17/20 05/27/23 Software Qa Manager Relationship Specialty Start Date End Date Ignacio Cheatham MD [address] [place] [address] PCP - General Family Medicine 04/16/17 Software Qa Manager Relationship Specialty Start Date End Date Ignacio Cheatham MD [address] [place] [address] PCP - General Family Medicine 04/16/17 Software Qa Manager Relationship Specialty Start Date End Date Ignacio Cheatham MD [address] [place], [place] [address] PCP - General Family Medicine 04/16/17 Software Qa Manager Relationship Specialty Start Date End Date Ignacio Cheatham MD [address] [place], [place] [address] PCP - General Family Medicine 04/16/17 Software Qa Manager Relationship Specialty Start Date End Date Ignacio Cheatham MD [address] [place], [place] [address]80[address] PCP - General Family Medicine 04/16/17 Software Qa Manager Relationship Specialty Start Date End Date Ignacio Cheatham MD [address] [place] [address] PCP - General Family Medicine 04/16/17 Software Qa Manager Relationship Specialty Start Date End Date Ignacio Cheatham MD [address] [place], [place] [address] PCP - General Family Medicine 04/16/17 Software Qa Manager Relationship Specialty Start Date End Date Ignacio Cheatham MD [address] [place] [address] PCP - General Family Medicine 04/16/17 Software Qa Manager Relationship Specialty Start Date End Date Ignacio Cheatham MD [address] [place], [place] [address] PCP - General Family Medicine 04/16/17 Tresa Marcum APRN.NOY [address] [place] [address] Quality Control Representative Family Medicine 02/08/24 Sury Gonzalez MOLDER TRIMMER.BLOCK PAVER [address] [place] [address] [facility] 02/08/24 Software Qa Manager Relationship Specialty Start Date End Date Ignacio Cheatham MD [address] [place] [address] PCP - General Family Medicine 04/16/17 Tresa Marcum MOLDER TRIMMER.BLOCK PAVER [address] [facility] [place] [address] [facility] 02/08/24 Sury Gonzalez MOLDER TRIMMER.BLOCK PAVER [address] [place] [address] [facility] 02/08/24 Software Qa Manager Relationship Specialty Start Date End Date Ignacio Cheatham MD [address] [place] [address] PCP - General Family Medicine 04/16/17 Tresa Marcum MOLDER TRIMMER.BLOCK PAVER [address] [facility] [place] [address] [facility] Medicine 02/08/24 Sury Gonzalez MOLDER TRIMMER.BLOCK PAVER [address] [place] [address] [facility] Medicine 02/08/24 Software Qa Manager Relationship Specialty Start Date End Date Ignacio Cheatham MD [address] [place] [address] PCP - General Family Medicine 04/16/17 Tresa Marcum MOLDER TRIMMER.BLOCK PAVER [address] [facility] [place] [address] Quality Control Representative Family Medicine 02/08/24 Sury Gonzalez APRN.BLOCK PAVER [address] [place] [address] Quality Control Representative Family Medicine 02/08/24 Software Qa Manager Relationship Specialty Start Date End Date Ignacio Cheatham MD [address] [place] [address] PCP - General Family Medicine 04/16/17 Tresa Marcum APRN.BLOCK PAVER [address] [facility] [place] [address] Quality Control Representative Family Medicine 02/08/24 Sury Gonzalez APRN.BLOCK PAVER [address] [place] [address] Quality Control [facility] 02/08/24 Software Qa Manager Relationship Specialty Start Date End Date Ignacio Cheatham MD [address] [place] [address] PCP - General Family Medicine 04/16/17 Tresa Marcum APRN.BLOCK PAVER [address] [facility] [place] [address] Quality Control Representative Family Medicine 02/08/24 Sury Gonzalez APRN.BLOCK PAVER [address] [place] [address] Quality Control Representative [facility] Medicine 02/08/24 Software Qa Manager Relationship Specialty Start Date End Date Ignacio Cheatham MD [address] [place] [address] PCP - General Family Medicine 04/16/17 Tresa Marcum APRN.BLOCK PAVER [address] [place] [address] Quality Control Representative Family Medicine 02/08/24 Sury Gonzalez APRN.BLOCK PAVER [address] [place] [address] Quality Control Representative Family Medicine 02/08/24 Software Qa Manager Relationship Specialty Start Date End Date Ignacio Cheatham MD [address] [place] [address] PCP - General Family Medicine 04/16/17 Tresa Marcum APRN.BLOCK PAVER [address] [place] [address] Quality Control Representative Family Medicine 02/08/24 Sury Gonzalez APRN.BLOCK PAVER [address] [place] [address] [facility] 02/08/24 Software Qa Manager Relationship Specialty Start Date End Date Ignacio Cheatham MD [address] [place] [address] PCP - General Family Medicine 04/16/17 Tresa Marcum APRN.BLOCK PAVER [address] [place] [address] Quality Control Representative Family Medicine 02/08/24 Sury Gonzalez APRN.BLOCK PAVER [address] [place] [address] [facility] 02/08/24 Software Qa Manager Relationship Specialty Start Date End Date Ignacio Cheatham MD [address] [place] [address] PCP - General Family Medicine 04/16/17 Tresa Marcum MOLDER TRIMMER.BLOCK PAVER [address] [place] [address] Quality Control [facility] 02/08/24 Sury Gonzalez APRN.BLOCK PAVER [address] [place] [address] [facility] 02/08/24 Software Qa Manager Relationship Specialty Start Date End Date Ignacio Cheatham MD [address] [place] [address] PCP - General Family Medicine 04/16/17 Tresa Marcum MOLDER TRIMMER.BLOCK PAVER [address] [place] [address] [facility] 02/08/24 Sury Gonzalez MOLDER TRIMMER.BLOCK PAVER [address] [place] [address] [facility] 02/08/24 Software Qa Manager Relationship Specialty Start Date End Date Ignacio Cheatham MD [address] [place] [address] PCP - General Family Medicine 04/16/17 Tresa Marcum MOLDER TRIMMER.BLOCK PAVER [address] [place] [address] Quality Control Representative Family [facility] 02/08/24 Sury Gonzalez APRN.BLOCK PAVER [address] [place] [address] Quality Control Representative Family Medicine 02/08/24 Software Qa Manager Relationship Specialty Start Date End Date Ignacio Cheatham MD [address] [place] [address] PCP - General Family Medicine 04/16/17 Tresa Marcum MOLDER TRIMMER.BLOCK PAVER [address] [place] [address] Quality Control Representative Family Medicine 02/08/24 Sury Gonzalez APRN.BLOCK PAVER [address] [place] [address] [facility] 02/08/24 Software Qa Manager Relationship Specialty Start Date End Date Ignacio Cheatham MD [address] [place] [address] PCP - General Family Medicine 04/16/17 Tresa Marcum MOLDER TRIMMER.BLOCK PAVER [address] [place] [address] Quality Control Representative Family Medicine 02/08/24 Sury Gonzalez MOLDER TRIMMER.BLOCK PAVER [address] [place] [address] Quality Control Representative Family Medicine 02/08/24 Software Qa Manager Relationship Specialty Start Date End Date Ignacio Cheatham MD [address] [place] [address] PCP - General Family Medicine 04/16/17 Tresa Marcum MOLDER TRIMMER.BLOCK PAVER [address] [place] [address] Quality Control Representative Family Medicine 02/08/24 Sury Gonzalez APRN.BLOCK PAVER [address] [place] [address] Quality Control Representative Family Medicine 02/08/24 Software Qa Manager Relationship Specialty Start Date End Date Ignacio Cheatham MD [address] [place] [address] PCP - General Family Medicine 04/16/17 Tresa Marcum APRN.BLOCK PAVER [address] [place] [address] Quality Control Representative Family Medicine 02/08/24 Sury Gonzalez MOLDER TRIMMER.BLOCK PAVER [address] [place] [address] Quality Control Representative Family [facility] 02/08/24 Software Qa Manager Relationship Specialty Start Date End Date Ignacio Cheatham MD [address] [place] [address] PCP - General Family Medicine 04/16/17 Tresa Marcum MOLDER TRIMMER.BLOCK PAVER [address] [place] [address] Quality Control Representative Family Medicine 02/08/24 Sury Gonzalez MOLDER TRIMMER.BLOCK PAVER [address] [place] [address] Quality Control Representative Family [facility] 02/08/24 Software Qa Manager Relationship Specialty Start Date End Date Ignacio Cheatham MD [address] [place] [address] PCP - General Family Medicine 04/16/17 Tresa Marcum APRN.BLOCK PAVER [address] [place], [place] [address] [phone] Quality Control Representative Family Medicine 02/08/24 Sury Gonzalez APRN.BLOCK PAVER [address] [place] [address] [facility] 02/08/24 Software Qa Manager Relationship Specialty Start Date End Date Ignacio Cheatham MD [address] [place] [address] PCP - General Family Medicine 04/16/17 Tresa Marcum APRN.BLOCK PAVER [address] [place] [address] [facility] 02/08/24 Sury Gonzalez MOLDER TRIMMER.BLOCK PAVER [address] [place] [address] Quality Control [facility] 02/08/24 Software Qa Manager Relationship Specialty Start Date End Date Ignacio Cheatham MD [address] [place] [address] PCP - General Family Medicine 04/16/17 Tresa Marcum MOLDER TRIMMER.BLOCK PAVER [address] [place] [address] [facility] Medicine 02/08/24 Sury Gonzalez APRN.BLOCK PAVER [address] [place] [address] [facility] 02/08/24 Team Status: Active Member Role/Relationship Status Dates Dr. Ignacio Cheatham MD Primary Care Provider Active Team Status: Active Member Role/Relationship Status Dates Dr. Ignacio Cheatham MD Primary Care Provider Active Start: August 24, 2024 Tresa Marcum ROLLING MACHINE OPERATOR, ROLLING MACHINE OPERATOR-C Attending Provider Active Start: August 24, 2024 Tresa Marcum ROLLING MACHINE OPERATOR, ROLLING MACHINE OPERATOR-C Referring Provider Active Start: August 24, 2024 Team Status: Inactive Member Role/Relationship Status Dates Dr. Ignacio Cheatham MD Primary Care Provider Active Start: September 06, 2024 End: September 06, 2024 Dr. Johnathon Robertson MD Emergency Provider Active S tart: September 06, 2024 End: September 06, 2024 Software Qa Manager Relationship Specialty Start Date End Date Ignacio Cheatham MD [address] [place] [address] PCP - General Family Medicine 04/16/17 Tresa Marcum, MOLDER TRIMMER.BLOCK PAVER [address] [facility] [place] [address] [facility] 02/08/24 Sury Gonzalez MOLDER TRIMMER.BLOCK PAVER [address] [place] [address] [facility] 02/08/24 Software Qa Manager Relationship Specialty Start Date End Date Ignacio Cheatham MD [address] [place] [address] PCP - General Family Medicine 04/16/17 Tresa Marcum, MOLDER TRIMMER.BLOCK PAVER [address] [facility] [place] [address] [facility] 02/08/24 Sury Gonzalez MOLDER TRIMMER.BLOCK PAVER [address] [place] [address] [facility] 02/08/24 Software Qa Manager Relationship Specialty Start Date End Date Ignacio Cheatham MD [address] [place], [place] [id number] PCP - General Family Medicine 04/16/17 Tresa Marcum APRN.BLOCK PAVER [address] [place], [place] [id number] [facility] 02/08/24 Sury Gonzalez APRN.BLOCK PAVER [address] [place], [place] [id number] [facility] 02/08/24 Goals (unrecognized section and content) Goals [...] BE BASED ON THE PRIMARY CLINICAL RECORDS. [facility] [employer] [facility]. provides no warranty or guarantee of the accuracy or completeness of information in this document.
[2024-10-10 23:15] LABS: Vitamin B12 357 pg/mL (180-914)
[2024-10-10] MEDS: Insulin Lispro 10 UNIT in Syringe 0 ML 6 UNIT IV (23:25)
[2024-10-11] VITALS (25 sets, daily range): BP systolic 100–191; BP diastolic 59–111; PULSE 64–115; RESP 16–26; TEMP 36–36.6; O2SAT 80–100; BMI 27.6; BMI 25.7
[2024-10-11] MEDS: Meropenem 1 GM in 0.9% Normal Saline (100mL MB+) 100 ML IV (00:07)
[2024-10-11 01:03] LABS: Troponin T High Sens 2 HR 104 ng/L (<=14)
[2024-10-11] MEDS: Lactobacillis Acidophilus 1 CAP PO ×4 (01:03→22:13)
[2024-10-11] MEDS: MELATONIN 10 MG TABLET PO ×2 (01:04→22:14)
[2024-10-11] MEDS: Azithromycin 500 MG in 0.9% Normal Saline (250mL Bag) 250 ML 250 MG IV (01:13)
[2024-10-11 04:24] LABS: Hematocrit 32.9 % (37-47); Hemoglobin 11.0 g/dL (12.0-15.0); Immature Granulocytes Count 0.030 X10^3/uL (0.0-0.0); Mean Corp Hgb Conc 33.4 g/dL (32-36); Mean Corpuscular Volume 90.6 fL (81-99); Mean Platelet Vol. 10.3 fl (6.2-12.0); NRBC Flagged by Analyzer 0 % (0-5); POSITIVE DIFFERENTIAL YES; Platelet Count 152 K/mm3 (150-450); RBC Distribution Width CV 13.2 % (11.6-14.6); RBC Distribution Width SD 43.2 fl (35.1-43.9); Red Blood Count 3.63 M/mm3 (4.2-5.4); White Blood Count 3.9 K/mm3 (4.4-11.0)
[2024-10-11 05:15] LABS: Troponin T High Sensitivity 129 ng/L (<=14)
[2024-10-11 05:37] LABS: Cholesterol 140 mg/dL (<=200); Low Density Lipoprotein Calc. 69 mg/dL; Triglycerides 60 mg/dL; Very Low Density Lipoprotein 12 mg/dL (5-40); cholesterol:hdl ratio screen 2.39
[2024-10-11] MEDS: guaiFENesin 10 ML UDC (200MG/10ML) 20 ML PO ×3 (05:41→22:09)
[2024-10-11 06:15] LABS: AST(SGOT) 27 U/L (<=31); Alanine Aminotransfer ALT/SGPT 14 U/L (<=34); Albumin, Serum 3.9 g/dL (3.5-5.0); Alkaline Phosphatase 76 U/L (35-104); Anion Gap 26 (5-15); BUN 72 mg/dL (4-19); BUN/Creat Ratio 8.3 RATIO (10-20); Calcium,Total 9.5 mg/dL (7.6-11.0); Carbon Dioxide 15.8 mmol/L (21.0-32.0); Chloride 88 mmol/L (98-108); Estimated Creatinine Clearance 7.83 ml/min (50-250); Globulin 2.7 g/dL (2.2-4.2); Glucose 291 mg/dL (70-99); Potassium 5.4 mmol/L (3.3-5.1)
[2024-10-11] MEDS: Albuterol 2.5 MG/3 ML VIAL.NEB. INHALATION (07:53)
--- NOTE | 2024-10-11 11:06 | PCM.CONS.R ---
Assessment & Plan Assessment/Plan (1) ESRD (end stage renal disease) on dialysis: (2) Hyperkalemia: PLAN: Plan This is a 59-year-old female with past medical history significant for ESRD on hemodialysis Thursday, last dialyzed last at the kidney center admitted for acute exacerbation COPD and possible pneumonia. Nephrology consulted as patient has history of ESRD, for dialysis management. Patient undergoing hemodialysis today over 4 hours on 2K bath. Will attempt to remove fluid as patient/blood pressure tolerates. Potassium in ER 6.2. This morning potassium 5.4. Patient will dialyze on 2K bath. Outpatient EDW 80.5 kg. Will continue to evaluate for hemodialysis/fluid removal needs. Patient remains on O2 via nasal cannula but oxygenation requirements have improved. Her blood pressures are elevated, suspect could be in part from hypervolemia and hope to see improvement in blood pressures with fluid removal with dialysis today. Further orders forthcoming as hospitalization evolves, thank you for allowing us to participate in the care of Ms. Gonzalez. Assessment and plan reviewed with Dr. Hill. HPI Consult Data Date of Consult: 10/11/24 HPI Narrative HPI Narrative: Margareth GONZALEZ, is a 59 F who presented to the emergency room last evening with complaints of diarrhea, abdominal pain and shortness of breath. Admitted with exacerbation COPD with suspected pneumonia. Nephrology consulted as patient has history of ESRD and is dialysis dependent. Potassium in the emergency room 6.2. Patient dialyzes at [facility] [place] Thursday. Patient reports she missed dialysis Thursday due to abdominal pain diarrhea as she felt was secondary to her IBS. Patient denies any chest pain. She was seen and evaluated on hemodialysis. Patient states feeling better but sleepy this morning. Denies any recent fevers. [facility] Medical History (Updated 10/11/24 @ 03:[address] Son Hallman, ) Hyperkalemia Fracture of fibula, right, closed Anemia Osteoarthritis of right knee Pathological fracture, right tibia, initial encounter for fracture Diabetes Dialysis patient Kidney disease GERD (gastroesophageal reflux disease) Sleep apnea Former smoker Asthma DVT (deep venous thrombosis) ESRD (end stage renal disease) on dialysis Fracture of right lower extremity Inability to walk Diabetes mellitus, type 2 Obesity Chronic anemia COPD with asthma Bipolar disorder Anxiety and depression HLD (hyperlipidemia) HTN (hypertension) Former tobacco use Neuropathy Fibromyalgia Kidney disease, chronic, stage IV (GFR 15-29 ml/min) History of tobacco use History of diabetes mellitus, type II History of COPD History of bipolar disorder Benign essential hypertension History of asthma Home Medications ?Medication ?Instructions ?Recorded ?Last Taken ?Type cholecalciferol (vitamin D3) 25 5,000 unit PO DAILY SUPPLEMENT 10/03/13 10/09/24 History mcg (1,000 unit) capsule (Vitamin D3) omeprazole 20 mg capsule,delayed 20 mg PO DAILY 08/23/14 10/09/24 History release melatonin 5 mg capsule 10 mg PO QHS sleep 05/27/16 10/09/24 History atorvastatin 40 mg tablet 40 mg PO QHS CHOLESTEROL 09/10/22 10/09/24 History sevelamer carbonate 800 mg tablet 1,600 mg PO TID 02/04/23 10/10/24 History hydroxyzine HCl 50 mg tablet 50 mg PO Q6H PRN itching 06/29/23 10/09/24 History acetaminophen 325 mg capsule 650 mg PO Q6H PRN pain 07/02/23 Unknown History (Tylenol) ondansetron HCl 4 mg tablet 4 mg PO Q8H PRN PRN nausea and 07/02/23 10/10/24 History vomiting clopidogrel 75 mg tablet 75 mg PO DAILY 09/06/24 10/09/24 History dulaglutide 0.75 mg/0.5 mL 0.75 mg subcut QWEEK 09/06/24 10/09/24 History subcutaneous pen injector (Trulicity) duloxetine 30 mg capsule,delayed 30 mg PO DAILY 09/06/24 10/09/24 History release nifedipine 90 mg tablet,extended 90 mg PO DAILY BP 09/06/24 10/09/24 History release pregabalin 25 mg capsule 25 mg PO QHS 09/06/24 10/09/24 History albuterol sulfate 90 mcg/actuation 2 puff inhalation Q4H PRN PRN 10/10/24 10/09/24 History aerosol inhaler shortness of breath or wheezing calcitriol 0.25 mcg capsule 1.5 mcg PO TUTHSA 10/10/24 10/08/24 History sucroferric oxyhydroxide 500 mg 500 mg PO TID 10/10/24 10/10/24 History chewable tablet (Velphoro) torsemide 100 mg tablet 100 mg PO DAILY 10/10/24 10/09/24 History Allergy/AdvReac Type Severity Reaction Status Date / Time renetta carin Allergy Unknown UNKNOWN Verified 09/06/24 18:45 mold Allergy Unknown unknown Verified 09/06/24 18:45 lisinopril Allergy unknown Verified 09/06/24 18:45 Penicillins Allergy Anaphylaxis Verified 09/06/24 18:45 tetracycline (Tetracycline) Allergy Anaphylaxis Verified 09/06/24 18:45 codeine AdvReac Abd Verified 09/06/24 18:45 cramps/diarrhea diphenhydramine HCl (From AdvReac Upset Verified 09/06/24 18:45 Benadryl) Stomach hydrocodone bitartrate (From AdvReac Abd Verified 09/06/24 18:45 Vicodin) cramps/diarrhea NSAIDS (Non-Steroidal AdvReac Unknown Verified 09/06/24 18:45 Anti-Inflamma Family History Mother Heart disease Hypertension Diabetes Kidney disease Father Diabetes Surgical History H/O cataract extraction H/O vitrectomy History of appendectomy History of cholecystectomy H/O vascular surgery H/O gastric bypass S/P cholecystectomy S/P appendectomy Social History household members: none Smoking Status: Former smoker how long ago did patient quit smoking: Quit age 24. alcohol intake: never substance use type: does not use ROS ROS Narrative As in HPI Physical Exam Narrative Alert and oriented x 3, no apparent distress S1, S2, RRR Diminished breath sounds, on O2 Abdomen soft, nontender No pitting edema bilateral lower legs or feet Left arm AV fistula accessed for hemodialysis Lab / Micro Data 10/11/24 04:10 10/11/24 04:10 Labs: Laboratory Results - last 24 hr 10/10/24 00:15: Troponin T Hi Sens 2 Hr 104 H* 10/10/24 16:11: WBC 6.0, RBC 3.70 L, Hgb 11.3 L, Hct 33.4 L, MCV 90.3, MCH 30.5, MCHC 33.8, RDW Std Deviation 42.9, RDW Coeff of Ben 13.0, Plt Count 143 L, MPV 11.0, Immature Gran % (Auto) 0.700, Neut % (Auto) 74.7 H, Lymph % (Auto) 16.1 L, [place] % (Auto) 5.3, Eos % (Auto) 2.5, Baso % (Auto) 0.7, Absolute Neuts (auto) 4.5, Absolute Lymphs (auto) 0.97, Nucleated RBC % 0, Sodium Cancelled, Potassium Cancelled, Chloride Cancelled, Carbon Dioxide Cancelled, Anion Gap Cancelled, BUN Cancelled, Creatinine Cancelled, Estim Creat Clear Calc Cancelled, Est GFR (MDRD) Non-Af Cancelled, BUN/Creatinine Ratio Cancelled, Glucose Cancelled, Hemoglobin A1c 8.1 H, Calcium Cancelled, Magnesium Cancelled, Total Bilirubin Cancelled, AST Cancelled, ALT Cancelled, Alkaline Phosphatase Cancelled, Troponin T High Sens Cancelled, Total Protein Cancelled, Albumin Cancelled, Globulin Cancelled, Albumin/Globulin Ratio Cancelled, Lipase Cancelled 10/10/24 16:26: D-Dimer Quant (PE/DVT) 2.92 H*, Lactic Acid < 1.0, Serum Folate 7.19 10/10/24 16:54: Urine Color Straw, Urine Clarity Sl. Cloudy, Urine pH 6.0, Ur Specific [place] 1.010, Urine Protein 100 H, Urine Glucose (UA) 1000 H, Urine Ketones Negative, Urine Occult Blood 150 H, Urine Nitrite Negative, Urine Bilirubin Negative, Urine Urobilinogen Normal, Ur Leukocyte Esterase 500 H, Urine RBC 5-10 SEEN, Urine WBC 10-25 SEEN, Ur Squamous Epith Cells 0-5 SEEN, Urine Bacteria 0 SEEN, Urine Mucus 0 SEEN 10/10/24 17:40: Sodium 128 L, Potassium 6.2 H*, Chloride 91 L, Carbon Dioxide 15.7 L, Anion Gap 21 H, BUN 65 H, Creatinine 8.20 H*, Estim Creat Clear Calc 8.46 L*, Est GFR (MDRD) Non-Af 5 L, BUN/Creatinine Ratio 7.9 L, Glucose 298 H, Calcium 8.9, Magnesium 2.2, Total Bilirubin 0.50, AST 34 H, ALT 9, Alkaline Phosphatase 66, Troponin T High Sens 97 H* D, [place] > [address] H, Total Protein 5.8 L, Albumin 3.5, Globulin 2.3, Albumin/Globulin Ratio 1.5, Lipase 39, Vitamin B12 357, TSH 3.000 10/10/24 20:22: POC Glucose 296 H 10/10/24 22:53: POC Glucose 350 H 10/11/24 00:00: POC Glucose 324 H 10/11/24 04:10: WBC 3.9 L, RBC 3.63 L, Hgb 11.0 L, Hct 32.9 L, MCV 90.6, MCH 30.3, MCHC 33.4, RDW Std Deviation 43.2, RDW Coeff of Ben 13.2, Plt Count 152, MPV 10.3, Immature Gran % (Auto) 0.800, Neut % (Auto) 91.3 H, Lymph % (Auto) 6.9 L, [place] % (Auto) 1.0, Eos % (Auto) 0.0, Baso % (Auto) 0.0, Absolute Neuts (auto) 3.6, Absolute Lymphs (auto) 0.27 L, Nucleated RBC % 0, Sodium 129 L, Potassium 5.4 H, Chloride 88 L, Carbon Dioxide 15.8 L, Anion Gap 26 H, BUN 72 H, Creatinine 8.71 H*, Estim Creat Clear Calc 7.83 L*, Est GFR (MDRD) Non-Af 5 L, BUN/Creatinine Ratio 8.3 L, Glucose 291 H, Calcium 9.5, Phosphorus 7.3 H, Total Bilirubin 0.49, AST 27, ALT 14, Alkaline Phosphatase 76, Troponin T High Sens 129 H* D, Total Protein 6.6, Albumin 3.9, Globulin 2.7, Albumin/Globulin Ratio 1.5, Triglycerides 60, Cholesterol 140, LDL Cholesterol, Calc 69, VLDL Cholesterol 12, HDL Cholesterol 59, Cholesterol/HDL Ratio 2.39 10/11/24 06:57: POC Glucose 329 H Micro: Microbiology 10/11/24 04:57 Stool Stool Lactoferrin - Final 10/11/24 04:57 Stool Clostridioides difficile (PCR) - Final 10/10/24 23:40 Mucosa - Nasopharyngeal Respiratory Panel (PCR) - Final 10/10/24 16:54 Urine, Random Legionella Antigen - Final 10/10/24 16:54 Urine, Random Streptococcus pneumoniae Antigen (M - Final 10/10/24 16:17 Mucosa - Nose SARS-CoV-2, Influenza & RSV (PCR) - Final ABG Data ABG results: ABG 10/10/24 16:35 Specimen Type LILIANA Sample Site Not entered O2 % 2.0 VBG pH 7.46 H VBG pO2 45 H VBG HCO3 27 H VBG Total CO2 28 VBG O2 Sat (Calc) 83 H VBG Base Excess 3 POC Mix VBG pCO2 Pt Tmp 37.6 L O2 Delivery Device Cannula Imaging Radiology Impression Chest X-Ray 10/10/24 17:00 IMPRESSION: Persistent diffuse pulmonary vascular congestion and bibasilar atelectasis. Reading Location: [facility] Chest CTA 10/10/24 17:56 IMPRESSION: 1. No pulmonary embolism is identified. Some of the distal pulmonary arteries cannot be evaluated due to suboptimal opacification. 2. Bilateral pleural effusions with compressive atelectasis. COPD with scattered areas of ground-glass attenuation. Superimposed pneumonia can not be excluded. 3. Multiple enlarged mediastinal and perihilar lymph nodes, likely reactive. Reading Location: [facility]
[2024-10-11] MEDS: PureFlow B 2K Dialysis Soln 1 BAG 6 BAG PF (12:59)
[2024-10-11] MEDS: 0.9% Normal Saline 1,000 ML IV.SOLN. 1000 ML OPERA.SITE (12:59)
[2024-10-11] MEDS: Cholecalciferol (Vit D3) 125 MCG CAPSULE (5,000 UNITS) PO ×2 (13:37→13:42)
[2024-10-11] MEDS: SEVELAMER CARBONATE 800 MG TABLET 1600 MG PO ×2 (13:42→18:15)
[2024-10-11] MEDS: NIFEdipine 90 MG Tablet PO (13:43)
[2024-10-11] MEDS: levoFLOXacin IV 750 MG/150 ML BAG 100 MG IV (13:44)
--- NOTE | 2024-10-11 15:22 | PCM.PN.HOSP ---
Subjective Subjective No issues overnight, diarrhea was due to the Kayexalate, C. difficile testing and enteric pathogen panel was negative continue to precautions Objective Data Objective Data Vital Signs: Vital Signs Temp Pulse Resp BP Pulse Ox O2 Del Method O2 Flow Rate 97.2 F L 82 16 100/60 94 Room Air 2 10/11/24 12:15 10/11/24 12:15 10/11/24 12:15 10/11/24 12:15 10/11/24 12:15 10/11/24 12:15 10/11/24 11:30 Oxygen Flow Rate (L/min) 2 Oxygen Delivery Method Room Air Weight: 168 lb 13.985 oz Body Mass Index (BMI) 25.7 Intake & Output: Intake and Output for Last 24 Hours 10/10/24 10/11/24 10/12/24 03:59 03:59 03:59 Intake Total 850 / 850 1430 / 1430 Output Total 5950 / 5950 Balance 850 / 850 -4520 / -4520 Lab / Micro Data 10/11/24 04:10 10/11/24 04:10 Labs: Laboratory Results - last 24 hr 10/10/24 00:15: Troponin T Hi Sens 2 Hr 104 H* 10/10/24 16:11: WBC 6.0, RBC 3.70 L, Hgb 11.3 L, Hct 33.4 L, MCV 90.3, MCH 30.5, MCHC 33.8, RDW Std Deviation 42.9, RDW Coeff of Ben 13.0, Plt Count 143 L, MPV 11.0, Immature Gran % (Auto) 0.700, Neut % (Auto) 74.7 H, Lymph % (Auto) 16.1 L, [place] % (Auto) 5.3, Eos % (Auto) 2.5, Baso % (Auto) 0.7, Absolute Neuts (auto) 4.5, Absolute Lymphs (auto) 0.97, Nucleated RBC % 0, Sodium Cancelled, Potassium Cancelled, Chloride Cancelled, Carbon Dioxide Cancelled, Anion Gap Cancelled, BUN Cancelled, Creatinine Cancelled, Estim Creat Clear Calc Cancelled, Est GFR (MDRD) Non-Af Cancelled, BUN/Creatinine Ratio Cancelled, Glucose Cancelled, Hemoglobin A1c 8.1 H, Calcium Cancelled, Magnesium Cancelled, Total Bilirubin Cancelled, AST Cancelled, ALT Cancelled, Alkaline Phosphatase Cancelled, Troponin T High Sens Cancelled, Total Protein Cancelled, Albumin Cancelled, Globulin Cancelled, Albumin/Globulin Ratio Cancelled, Lipase Cancelled 10/10/24 16:26: D-Dimer Quant (PE/DVT) 2.92 H*, Lactic Acid < 1.0, Serum Folate 7.19 10/10/24 16:54: Urine Color Straw, Urine Clarity Sl. Cloudy, Urine pH 6.0, Ur Specific [place] 1.010, Urine Protein 100 H, Urine Glucose (UA) 1000 H, Urine Ketones Negative, Urine Occult Blood 150 H, Urine Nitrite Negative, Urine Bilirubin Negative, Urine Urobilinogen Normal, Ur Leukocyte Esterase 500 H, Urine RBC 5-10 SEEN, Urine WBC 10-25 SEEN, Ur Squamous Epith Cells 0-5 SEEN, Urine Bacteria 0 SEEN, Urine Mucus 0 SEEN 10/10/24 17:40: Sodium 128 L, Potassium 6.2 H*, Chloride 91 L, Carbon Dioxide 15.7 L, Anion Gap 21 H, BUN 65 H, Creatinine 8.20 H*, Estim Creat Clear Calc 8.46 L*, Est GFR (MDRD) Non-Af 5 L, BUN/Creatinine Ratio 7.9 L, Glucose 298 H, Calcium 8.9, Magnesium 2.2, Total Bilirubin 0.50, AST 34 H, ALT 9, Alkaline Phosphatase 66, Troponin T High Sens 97 H* D, [place] > 05509 H, Total Protein 5.8 L, Albumin 3.5, Globulin 2.3, Albumin/Globulin Ratio 1.5, Lipase 39, Vitamin B12 357, TSH 3.000 10/10/24 20:22: POC Glucose 296 H 10/10/24 22:53: POC Glucose 350 H 10/11/24 00:00: POC Glucose 324 H 10/11/24 04:10: WBC 3.9 L, RBC 3.63 L, Hgb 11.0 L, Hct 32.9 L, MCV 90.6, MCH 30.3, MCHC 33.4, RDW Std Deviation 43.2, RDW Coeff of Ben 13.2, Plt Count 152, MPV 10.3, Immature Gran % (Auto) 0.800, Neut % (Auto) 91.3 H, Lymph % (Auto) 6.9 L, [place] % (Auto) 1.0, Eos % (Auto) 0.0, Baso % (Auto) 0.0, Absolute Neuts (auto) 3.6, Absolute Lymphs (auto) 0.27 L, Nucleated RBC % 0, Sodium 129 L, Potassium 5.4 H, Chloride 88 L, Carbon Dioxide 15.8 L, Anion Gap 26 H, BUN 72 H, Creatinine 8.71 H*, Estim Creat Clear Calc 7.83 L*, Est GFR (MDRD) Non-Af 5 L, BUN/Creatinine Ratio 8.3 L, Glucose 291 H, Calcium 9.5, Phosphorus 7.3 H, Total Bilirubin 0.49, AST 27, ALT 14, Alkaline Phosphatase 76, Troponin T High Sens 129 H* D, Total Protein 6.6, Albumin 3.9, Globulin 2.7, Albumin/Globulin Ratio 1.5, Triglycerides 60, Cholesterol 140, LDL Cholesterol, Calc 69, VLDL Cholesterol 12, HDL Cholesterol 59, Cholesterol/HDL Ratio 2.39 10/11/24 06:57: POC Glucose 329 H 10/11/24 12:54: POC Glucose 163 H Micro: Microbiology 10/11/24 04:57 Stool Stool Lactoferrin - Final 10/11/24 04:57 Stool Enteric Bacteriology - Final 10/11/24 04:57 Stool Clostridioides difficile (PCR) - Final 10/10/24 23:40 Mucosa - Nasopharyngeal Respiratory Panel (PCR) - Final 10/10/24 16:54 Urine, Random Legionella Antigen - Final 10/10/24 16:54 Urine, Random Streptococcus pneumoniae Antigen (M - Final 10/10/24 16:17 Mucosa - Nose SARS-CoV-2, Influenza & RSV (PCR) - Final ABG Data ABG results: ABG 10/10/24 16:35 Specimen Type LILIANA Sample Site Not entered O2 % 2.0 VBG pH 7.46 H VBG pO2 45 H VBG HCO3 27 H VBG Total CO2 28 VBG O2 Sat (Calc) 83 H VBG Base Excess 3 POC Mix VBG pCO2 Pt Tmp 37.6 L O2 Delivery Device Cannula Radiography Diagnostic Testing: Radiology Impression Chest X-Ray 10/10/24 17:00 IMPRESSION: Persistent diffuse pulmonary vascular congestion and bibasilar atelectasis. Reading Location: [facility] Chest CTA 10/10/24 17:56 IMPRESSION: 1. No pulmonary embolism is identified. Some of the distal pulmonary arteries cannot be evaluated due to suboptimal opacification. 2. Bilateral pleural effusions with compressive atelectasis. COPD with scattered areas of ground-glass attenuation. Superimposed pneumonia can not be excluded. 3. Multiple enlarged mediastinal and perihilar lymph nodes, likely reactive. Reading Location: [facility] Physical Exam Narrative General: Alert, Oriented x3, Cooperative, No apparent distress HEENT: Atraumatic, PERRLA, EOMI, Normocephalic Oral: Moist Mucosa Neck: Supple, No JVD Lungs: Diminished, Normal air movement, No rhonchi, scattered wheeze, No rales Cardiovascular: Regular rate, Regular Rhythm, Normal S1, Normal S2, No murmurs Abdomen: Soft, Non Tender, Non-Distended, No Hepato-splenomegaly Extremities: No edema, Capillary Refill Less than 3 Seconds Skin: No rashes, No breakdown Musculoskeletal: No Tenderness to Palpation of Joints or Extremities Neurological: No focal neurological deficits, moves all extremities Psych/Mental Status: Normal Affect, Appropriate Assessment & Plan Assessment/Plan (1) COPD exacerbation: (2) Acute respiratory insufficiency: (3) Diarrhea: QUALIFIERS: Diarrhea type: presumed infectious Qualified Code(s): R19.7 - Diarrhea, unspecified (4) Hyperkalemia: (5) ESRD (end stage renal disease) on dialysis: PLAN: Plan 1. Acute hypoxic respiratory insufficiency secondary to COPD exacerbation with possible pneumonia and UTI ? Continue with steroids and breathing treatments ? She quickly resolved down to room air ? No leukocytosis but will continue with antibiotics for another 48 hours pending sputum culture ? Respiratory panels are negative ? Her D-dimer was elevated so CTA of the chest was done which was negative for PE however because she has a history of a DVT Dopplers are pending of her lower extremities ? Will cover both sources of possible infection with Levaquin after dialysis 3 days a week 2. Essential HTN/HLD ? Blood pressures are little bit on the high side, will make adjustments ? Continue currently with her home blood pressure medications as well as as needed hydralazine ? Continue with Lipitor 3. DM2 ? She is only on dulaglutide which will be held ? Continue with sliding scale insulin ? Accu-Cheks ACHS ? Will monitor and make adjustments as necessary 4. IBS with hyperkalemia and diarrhea ? She does have diarrhea as part of her IBS but she was also presenting with hyperkalemia at 6.2 and received Kayexalate ? Her diarrhea is likely related to her IBS and her Kayexalate however fecal studies were obtained and all were negative though we are waiting for ova and parasites ? Hyperkalemia is resolved 5. Iron deficiency anemia ? Likely secondary to her gastric bypass ? B12 and folic acid are stable ? Continue with replacement 6. Bipolar disorder ? Stable ? Continue with her home meds 7. GERD ? Stable ? Continue with PPI DVT: Heparin Charges/Coding Visit Charges Inpatient E&M: 00740 Subs Hosp L2
--- NOTE | 2024-10-11 19:54 | CASEMGMT ---
Social Work Attempted to meet with patient for completion of social drivers of health screening and advance care planning follow-up. Upon social work presentation to the room, patient in the middle of getting a Doppler. Plan: Social work will follow-up with patient at a later time for completion of screening related to SDOH and advanced directives. -LARRY Langley, [employer] *This note was generated with [employer] dictation software. It may contain incorrect words, spelling, and punctuation that were not noted in review of the chart prior to signing*
[2024-10-11] MEDS: Heparin Injection (Vial) 5,000 UNIT/ML VIAL 5000 UNIT SC (22:14)
[2024-10-11] MEDS: 0.9% Saline Lock 10 ML Syringe IV (22:21)
[2024-10-12 03:22] VITALS: BP 140/79; PULSE 107; RESP 18; TEMP 35.9; O2SAT 97
[2024-10-12 05:10] VITALS: BMI 27.2
[2024-10-12] MEDS: guaiFENesin 10 ML UDC (200MG/10ML) 20 ML PO ×3 (06:33→21:39)
[2024-10-12] MEDS: Heparin Injection (Vial) 5,000 UNIT/ML VIAL 5000 UNIT SC ×3 (06:33→21:40)
[2024-10-12 09:20] VITALS: BP 146/78; PULSE 105; RESP 18; TEMP 36.3; O2SAT 100
[2024-10-12] MEDS: SEVELAMER CARBONATE 800 MG TABLET 1600 MG PO ×3 (09:58→17:18)
[2024-10-12] MEDS: NIFEdipine 90 MG Tablet PO (09:58)
[2024-10-12] MEDS: Lactobacillis Acidophilus 1 CAP PO ×4 (09:58→21:40)
[2024-10-12] MEDS: 0.9% Saline Lock 10 ML Syringe IV ×3 (10:02→22:01)
[2024-10-12 10:54] VITALS: O2SAT 76; O2SAT 91; O2SAT 94
[2024-10-12 11:37] LABS: Hematocrit 28.8 % (37-47); Hemoglobin 9.5 g/dL (12.0-15.0); Immature Granulocytes Count 0.030 X10^3/uL (0.0-0.0); Mean Corp Hgb Conc 33.0 g/dL (32-36); Mean Corpuscular Volume 91.4 fL (81-99); Mean Platelet Vol. 10.9 fl (6.2-12.0); NRBC Flagged by Analyzer 0 % (0-5); POSITIVE DIFFERENTIAL YES; Platelet Count 151 K/mm3 (150-450); RBC Distribution Width CV 13.3 % (11.6-14.6); RBC Distribution Width SD 43.8 fl (35.1-43.9); Red Blood Count 3.15 M/mm3 (4.2-5.4); White Blood Count 5.4 K/mm3 (4.4-11.0)
[2024-10-12 11:42] LABS: Anion Gap 22 (5-15); BUN 56 mg/dL (4-19); BUN/Creat Ratio 8.7 RATIO (10-20); Calcium,Total 9.6 mg/dL (7.6-11.0); Carbon Dioxide 17.6 mmol/L (21.0-32.0); Chloride 88 mmol/L (98-108); Estimated Creatinine Clearance 10.54 ml/min (50-250); Glucose 238 mg/dL (70-99); Potassium 5.1 mmol/L (3.3-5.1)
--- NOTE | 2024-10-12 13:44 | CASEMGMT ---
Social Work- SW met with pt to complete SDOH assessment. Pt reported transportation concerns. Pt reports that she has sisters take one direction to appointments and uses a taxi for the oether direction. Pt uses [facility] for dialysis transport. Pt reports that she would like home delivered meals and home health care to assist with showers. Pt has a caser shoe parts through [facility], but is uncertain as to who it is. SW called [facility]. Services are through [facility]. JOANIE Ann. [email or web address] [phone] SW called and left a voicemail. SW provided information on transportation, home delivered meals. SW remains available to follow. ALEE Cristina
[2024-10-12 15:20] VITALS: BP 138/73; PULSE 103; RESP 18; TEMP 36.3; O2SAT 98
--- NOTE | 2024-10-12 15:22 | PN.HOSP_ITS ---
Subjective Subjective Doing well, feels better than on admission. Objective Data Objective Data Vital Signs: Vital Signs Temp Pulse Resp BP Pulse Ox O2 Del Method O2 Flow Rate 97.3 F L 103 H 18 138/73 H 98 Nasal Cannula 2 10/12/24 15:20 10/12/24 15:20 10/12/24 15:20 10/12/24 15:20 10/12/24 15:20 10/12/24 15:20 10/12/24 15:20 Oxygen Flow Rate (L/min) 2 Oxygen Delivery Method Nasal Cannula Weight: 179 lb 3.2 oz Body Mass Index (BMI) 27.2 Intake & Output: Intake and Output for Last 24 Hours 10/11/24 10/12/24 10/13/24 03:59 03:59 03:59 Intake Total 850 / 850 1790 / 1790 240 / 240 Output Total 5950 / 5950 Balance 850 / 850 -4160 / -4160 240 / 240 Lab / Micro Data 10/12/24 05:30 10/12/24 05:30 Labs: Laboratory Results - last 24 hr 10/11/24 16:23: POC Glucose 232 H 10/11/24 22:24: POC Glucose 422 H 10/12/24 00:51: POC Glucose 163 H 10/12/24 05:30: WBC 5.4, RBC 3.15 L, Hgb 9.5 L, Hct 28.8 L, MCV 91.4, MCH 30.2, MCHC 33.0, RDW Std Deviation 43.8, RDW Coeff of Ben 13.3, Plt Count 151, MPV 10.9, Immature Gran % (Auto) 0.600, Neut % (Auto) 92.1 H, Lymph % (Auto) 5.6 L, [place] % (Auto) 1.7, Eos % (Auto) 0.0, Baso % (Auto) 0.0, Absolute Neuts (auto) 5.0, Absolute Lymphs (auto) 0.30 L, Nucleated RBC % 0, Sodium 128 L, Potassium 5.1, Chloride 88 L, Carbon Dioxide 17.6 L, Anion Gap 22 H, BUN 56 H, Creatinine 6.43 H, Estim Creat Clear Calc 10.54 L, Est GFR (MDRD) Non-Af 7 L, B UN/Creatinine Ratio 8.7 L, Glucose 238 H, Calcium 9.6, Phosphorus 6.1 H 10/12/24 06:32: POC Glucose 228 H 10/12/24 11:26: POC Glucose 320 H Micro: Microbiology 10/10/24 16:54 Urine, Clean Catch Urine Culture - Preliminary Alpha hemolytic organism 10/11/24 04:57 Stool Stool Lactoferrin - Final 10/11/24 04:57 Stool Enteric Bacteriology - Final 10/11/24 04:57 Stool Clostridioides difficile (PCR) - Final 10/10/24 23:40 Mucosa - Nasopharyngeal Respiratory Panel (PCR) - Final 10/10/24 16:54 Urine, Random Legionella Antigen - Final 10/10/24 16:54 Urine, Random Streptococcus pneumoniae Antigen (M - Final 10/10/24 16:17 Mucosa - Nose SARS-CoV-2, Influenza & RSV (PCR) - Final Radiography Diagnostic Testing: Radiology Impression Venous Doppler Study 10/10/24 21:47 Interpretation Summary Deep veins of the lower extremities are bilaterally patent and compressible segmentally. There is no evidence of deep vein thrombosis on either side. Valvular competence appears intact within the proximal deep venous systems bilaterally. The great saphenous veins appear bilaterally patent and compressible segmentally. Pulsatile flow is noted in the deep venous system bilaterally, which may be indicative of elevated central venous pressure (i.e. congestive heart failure, pulmonary hypertension, etc.). Clinical correlation is advised. Ordering Physician: Son Hallman Referring Physician: Aki Archibald Performed By: Lion Araya, RVT Physical Exam Narrative General: Alert, Oriented x3, Cooperative, No apparent distress HEENT: Atraumatic, PERRLA, EOMI, Normocephalic Oral: Moist Mucosa Neck: Supple, No JVD Lungs: Diminished, Normal air movement, No rhonchi, scattered wheeze, No rales Cardiovascular: Regular rate, Regular Rhythm, Normal S1, Normal S2, No murmurs Abdomen: Soft, Non Tender, Non-Distended, No Hepato-splenomegaly Extremities: No edema, Capillary Refill Less than 3 Seconds Skin: No rashes, No breakdown Musculoskeletal: No Tenderness to Palpation of Joints or Extremities Neurological: No focal neurological deficits, moves all extremities Psych/Mental Status: Normal Affect, Appropriate Assessment & Plan Assessment/Plan (1) COPD exacerbation: (2) Acute respiratory insufficiency: (3) Diarrhea: QUALIFIERS: Diarrhea type: presumed infectious Qualified Code(s): R19.7 - Diarrhea, unspecified (4) Hyperkalemia: (5) ESRD (end stage renal disease) on dialysis: PLAN: Plan 1. Acute hypoxic respiratory insufficiency secondary to COPD exacerbation with possible pneumonia and UTI ? Continue with steroids and breathing treatments ? She quickly resolved down to room air ? No leukocytosis but will continue with antibiotics for another 48 hours pending sputum culture ? Respiratory panels are negative ? Her D-dimer was elevated so CTA of the chest was done which was negative for PE however because she has a history of a DVT Dopplers were obtained which were also negative ? Will cover both sources of possible infection with Levaquin after dialysis 3 days a week 2. Essential HTN/HLD ? Blood pressures are little bit on the high side, will make adjustments ? Continue currently with her home blood pressure medications as well as as needed hydralazine ? Continue with Lipitor 3. DM2 ? She is only on dulaglutide which will be held ? Continue with sliding scale insulin ? Accu-Cheks ACHS ? Will monitor and make adjustments as necessary 4. IBS with hyperkalemia and diarrhea ? She does have diarrhea as part of her IBS but she was also presenting with hyperkalemia at 6.2 and received Kayexalate ? Her diarrhea is likely related to her IBS and her Kayexalate however fecal studies were obtained and all were negative though we are waiting for ova and parasites ? Hyperkalemia is resolved 5. Iron deficiency anemia ? Likely secondary to her gastric bypass ? B12 and folic acid are stable ? Continue with replacement 6. Bipolar disorder ? Stable ? Continue with her home meds 7. GERD ? Stable ? Continue with PPI DVT: Heparin Charges/Coding Visit Charges Inpatient E&M: 86760 Subs Hosp L2
--- NOTE | 2024-10-12 15:28 | CASEMGMT ---
GRACE NAIR NOTE: GRACE NAIR spoke w/Simona @ [facility]. She is aware of admission to [facility] and that pt is not medically ready for discharge today. Per Simona, pt's chair time is TTS @ 0700. Jovani BRAUN RN, CM
[2024-10-12 21:25] VITALS: BP 132/66; PULSE 100; RESP 16; TEMP 36.6; O2SAT 100
[2024-10-12] MEDS: MELATONIN 10 MG TABLET PO (21:40)
[2024-10-13] VITALS (13 sets, daily range): BP systolic 116–155; BP diastolic 62–87; PULSE 79–98; RESP 12–18; TEMP 36.3–36.6; O2SAT 92–100; BMI 27.8; BMI 26.7
[2024-10-13] MEDS: guaiFENesin 10 ML UDC (200MG/10ML) 20 ML PO ×2 (06:31→13:58)
[2024-10-13] MEDS: Heparin Injection (Vial) 5,000 UNIT/ML VIAL 5000 UNIT SC ×2 (06:31→14:00)
[2024-10-13] MEDS: 0.9% Saline Lock 10 ML Syringe IV (06:32)
[2024-10-13 08:42] LABS: Anion Gap 20 (5-15); BUN 68 mg/dL (4-19); BUN/Creat Ratio 8.5 RATIO (10-20); Calcium,Total 9.3 mg/dL (7.6-11.0); Carbon Dioxide 19.6 mmol/L (21.0-32.0); Chloride 87 mmol/L (98-108); Estimated Creatinine Clearance 8.51 ml/min (50-250); Glucose 218 mg/dL (70-99); Potassium 4.6 mmol/L (3.3-5.1)
[2024-10-13 08:44] LABS: Hematocrit 27.9 % (37-47); Hemoglobin 9.1 g/dL (12.0-15.0); Immature Granulocytes Count 0.010 X10^3/uL (0.0-0.0); Mean Corp Hgb Conc 32.6 g/dL (32-36); Mean Corpuscular Volume 90.9 fL (81-99); Mean Platelet Vol. 10.5 fl (6.2-12.0); NRBC Flagged by Analyzer 0 % (0-5); Platelet Count 141 K/mm3 (150-450); RBC Distribution Width CV 13.2 % (11.6-14.6); RBC Distribution Width SD 43.5 fl (35.1-43.9); Red Blood Count 3.07 M/mm3 (4.2-5.4); White Blood Count 5.6 K/mm3 (4.4-11.0)
--- NOTE | 2024-10-13 11:00 | CASEMGMT ---
Social Work SW placed call to Savita Ann and VM left requesting return call and that pt is requesting home delivered meals and home health aids. ALEE Guerra
[2024-10-13] MEDS: Epoetin Alfa epbx 10,000 UNIT/ML 20000 UNIT IV (11:55)
[2024-10-13] MEDS: 0.9% Normal Saline 1,000 ML IV.SOLN. 1000 ML OPERA.SITE (11:56)
[2024-10-13] MEDS: PureFlow B 2K Dialysis Soln 1 BAG 6 BAG PF (11:56)
[2024-10-13] MEDS: SEVELAMER CARBONATE 800 MG TABLET 1600 MG PO (13:39)
[2024-10-13] MEDS: NIFEdipine 90 MG Tablet PO (13:40)
[2024-10-13] MEDS: Lactobacillis Acidophilus 1 CAP PO (13:40)
[2024-10-13] MEDS: Cholecalciferol (Vit D3) 125 MCG CAPSULE (5,000 UNITS) PO (13:40)
--- NOTE | 2024-10-13 13:42 | PCM.PN.REN ---
Subjective Subjective Resting in bed, no complaints. States tolerated dialysis today with fluid removal. States feeling better. Objective Data Objective Data Vital Signs: Vital Signs Temp Pulse Resp BP Pulse Ox O2 Del Method O2 Flow Rate 97.3 F L 97 18 143/65 H 98 Room Air 2 10/13/24 13:35 10/13/24 13:35 10/13/24 13:35 10/13/24 13:35 10/13/24 13:35 10/13/24 13:35 10/12/24 15:20 Oxygen Flow Rate (L/min) 2 Oxygen Delivery Method Room Air Weight: 79.8 kg Body Mass Index (BMI) 26.7 Intake & Output: Intake and Output for Last 24 Hours 10/11/24 10/12/24 10/13/24 23:59 23:59 23:59 Intake Total 2140 / 2140 480 / 480 240 / 240 Output Total 5950 / 5950 3520 / 3520 Balance -3810 / -3810 480 / 480 -3280 / -3280 Lab / Micro Data 10/13/24 07:12 10/13/24 07:12 Labs: Laboratory Results - last 24 hr 10/12/24 17:17: POC Glucose 347 H 10/12/24 21:33: POC Glucose 314 H 10/13/24 06:30: POC Glucose 224 H 10/13/24 07:12: WBC 5.6, RBC 3.07 L, Hgb 9.1 L, Hct 27.9 L, MCV 90.9, MCH 29.6, MCHC 32.6, RDW Std Deviation 43.5, RDW Coeff of Ben 13.2, Plt Count 141 L, MPV 10.5, Immature Gran % (Auto) 0.200, Neut % (Auto) 71.6 H, Lymph % (Auto) 19.9, [place] % (Auto) 7.9, Eos % (Auto) 0.4, Baso % (Auto) 0.0, Absolute Neuts (auto) 4.0, Absolute Lymphs (auto) 1.11, Nucleated RBC % 0, Sodium 127 L, Potassium 4.6, Chloride 87 L, Carbon Dioxide 19.6 L, Anion Gap 20 H, BUN 68 H, Creatinine 8.04 H*, Estim Creat Clear Calc 8.51 L*, Est GFR (MDRD) Non-Af 5 L, BUN/Creatinine Ratio 8.5 L, Glucose 218 H, Calcium 9.3 Micro: Microbiology 10/10/24 16:54 Urine, Clean Catch Urine Culture - Final Streptococcus sanguinis Gram negative gianna 10/11/24 04:57 Stool Stool Lactoferrin - Final 10/11/24 04:57 Stool Enteric Bacteriology - Final 10/11/24 04:57 Stool Clostridioides difficile (PCR) - Final 10/10/24 23:40 Mucosa - Nasopharyngeal Respiratory Panel (PCR) - Final 10/10/24 16:54 Urine, Random Legionella Antigen - Final 10/10/24 16:54 Urine, Random Streptococcus pneumoniae Antigen (M - Final 10/10/24 16:17 Mucosa - Nose SARS-CoV-2, Influenza & RSV (PCR) - Final Physical Exam Narrative Alert and oriented x 3, no apparent distress S1, S2, RRR lung sounds clear Abdomen soft, nontender No pitting edema bilateral lower legs or feet Left arm AV fistula Assessment & Plan Assessment/Plan (1) ESRD (end stage renal disease) on dialysis: (2) Hyperkalemia: PLAN: Plan This is a 59-year-old female with past medical history significant for ESRD on hemodialysis Thursday, admitted for acute exacerbation COPD and possible pneumonia. Patient underwent dialysis today on 2k bath and tolerated ~3L fluid removal.. Probable discharge to home today, next dialysis would be Thursday at the kidney center.
[2024-10-13] MEDS: levoFLOXacin IV 500 MG/100 ML BAG 100 MG IV (13:47)
--- NOTE | 2024-10-13 14:52 | DCINST_ITS ---
Discharge Instructions DC O2, CPAP, BIPAP needs Home O2 Discharge instructions: No Dressing / Incision Discharge Activity: Return to Normal Activity Dressing / Incision Call your doctor if you observe: Fever of 101 or Higher, Shortness of breath, Dizziness, Fainting spells, Swelling in the ankles, Chest pain and Increased palpitations (irregular heartbeat) Follow Up Care Test Results: Test results from this visit will be discussed in further detail at your follow- up appointment, if applicable. Discharge Plan Admission Admit Date/Time: 10/10/24 20:31 Attending Provider: Hipolito Shepard Primary Care Provider: Aki Archibald Consulting Providers: Sofía Hill; Son Hallman Discharge Orders/Prescriptions Prescriptions: New prednisone 20 mg Tablet 40 mg PO BREAKFAST 5 Days Qty: 10 0RF Continued cholecalciferol (vitamin D3) [Vitamin D3] 1,000 UNIT capsule 5,000 unit PO DAILY omeprazole 20 MG capsule 20 mg PO DAILY melatonin 5 MG capsule 10 mg PO QHS atorvastatin 40 mg tablet 40 mg PO QHS sevelamer carbonate 800 mg tablet 1,600 mg PO TID acetaminophen [Tylenol] 325 mg capsule 650 mg PO Q6H PRN (Reason: pain ) ondansetron HCl 4 mg tablet 4 mg PO Q8H PRN PRN (Reason: nausea and vomiting) hydroxyzine HCl 50 mg tablet 50 mg PO Q6H PRN (Reason: itching) nifedipine 90 mg tablet extended release 90 mg PO DAILY Patient Comments: [NO ORIGINAL SIG] clopidogrel 75 mg tablet 75 mg PO DAILY duloxetine 30 mg capsule,delayed release(DR/EC) 30 mg PO DAILY pregabalin 25 mg capsule 25 mg PO QHS Trulicity 0.75 mg/0.5 mL pen injector 0.75 mg subcut QWEEK torsemide 100 mg tablet 100 mg PO DAILY Velphoro 500 mg tablet,chewable 500 mg PO TID calcitriol 0.25 mcg capsule 1.5 mcg PO TUTHSA Rx Instructions: 1.5 mcg orally 3XW; albuterol sulfate 90 mcg/actuation HFA aerosol inhaler 2 puff INHALATION Q4H PRN PRN (Reason: shortness of breath or wheezing) Referrals / Follow Up: Sofía Hill MD [Med Staff - Consulting] - Aki Archibald MD [Primary Care Provider] - Disposition Disposition (needs filled in before D/C Order can be placed): Home, Self Care
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
--- NOTE | 2024-10-14 08:45 | CASEMGMT ---
Social Work SW called pt's comp field case manager, Lobo Ann, message left letting her know pt was d/c from the hospital on 10/13 and to call SW should she have any questions. LARRY Palacios
--- NOTE | 2024-10-14 13:27 | CASEMGMT ---
GRACE NAIR NOTE: Simona @ [facility] notified that pt discharged home yesterday. Jovani BRAUN RN CM
== END 2024-10-13 15:50 | disposition home or self-care (01) | DRG 190 ==
LOC: ED 20:10 → PCU 21:44
PROVIDERS: Admitting Provider Internal Medicine; Emergency Provider Surgery; PCP Family Medicine; Visit Provider Family Medicine
DX: J44.1 Chronic obstructive pulmonary disease with (acute) exacerbation (principal); N18.6 End stage renal disease; J18.9 Pneumonia, unspecified organism; I12.0 Hypertensive chronic kidney disease with stage 5 chronic kidney disease or end stage renal disease; E87.1 Hypo-osmolality and hyponatremia; N30.01 Acute cystitis with hematuria; D69.6 Thrombocytopenia, unspecified; F31.9 Bipolar disorder, unspecified; E11.65 Type 2 diabetes mellitus with hyperglycemia; D50.9 Iron deficiency anemia, unspecified; J44.0 Chronic obstructive pulmonary disease with (acute) lower respiratory infection; E11.22 Type 2 diabetes mellitus with diabetic chronic kidney disease; Z99.2 Dependence on renal dialysis; K21.9 Gastro-esophageal reflux disease without esophagitis; R19.7 Diarrhea, unspecified; M17.11 Unilateral primary osteoarthritis, right knee; E87.5 Hyperkalemia; M79.7 Fibromyalgia; E78.5 Hyperlipidemia, unspecified; E11.40 Type 2 diabetes mellitus with diabetic neuropathy, unspecified; K58.0 Irritable bowel syndrome with diarrhea; Z79.4 Long term (current) use of insulin; G47.33 Obstructive sleep apnea (adult) (pediatric); Z83.3 Family history of diabetes mellitus; Z87.891 Personal history of nicotine dependence; Z82.49 Family history of ischemic heart disease and other diseases of the circulatory system; E66.3 Overweight; R59.0 Localized enlarged lymph nodes; Z86.718 Personal history of other venous thrombosis and embolism; Z68.28 Body mass index [BMI] 28.0-28.9, adult; B96.89 Other specified bacterial agents as the cause of diseases classified elsewhere; Z90.49 Acquired absence of other specified parts of digestive tract; Z98.84 Bariatric surgery status; R06.89 Other abnormalities of breathing; Z99.89 Dependence on other enabling machines and devices
CPT/HCPCS: 36415; 71046; 71275; 80048; 80053; 80061; 81001; 82607; 82746; 82803; 82962; 83036; 83605; 83630; 83690; 83735; 83880; 84100; 84443; 84484; 85025; 85379; 87077; 87086; 87088; 87177; 87186; 87209; 87449; 87493; 87506; 87631; 87633; 90937; 93005; 93970; 94640; 94668; 97110; 97116; 97162; 97165; 97802; 99252; 99285; J2185; Q9967; A4216; G0257; G0463; J0612; Q5106

== ENCOUNTER 2024-10-24 13:38 | Inpatient (IN) | payer MEDICARE, MEDICAID, SELFPAY ==
[2024-10-24] VITALS (25 sets, daily range): BP systolic 136–168; BP diastolic 65–94; PULSE 88–98; RESP 16–20; TEMP 36.7–37.2; O2SAT 84–100; BMI 30.2; BMI 27.9
--- NOTE | 2024-10-24 13:54 | ED.RN ---
Patients sister Halle called and notified of patient arrival to ED per patients request.
--- NOTE | 2024-10-24 14:50 | EKG12_ITS ---
Test Reason : SOB Blood Pressure : */* mmHG Vent. Rate : 95 BPM Atrial Rate : 95 BPM P-R Int : 148 ms QRS Dur : 94 ms QT Int : 360 ms P-R-T Axes : 69 73 138 degrees QTcB Int : 452 ms Normal sinus rhythm Nonspecific ST and T wave abnormality Abnormal ECG Confirmed by ROMIE MONTANA ([id number]), business editor LINDA PICKETT ([id number]) on 10/26/2024 1:56:59 PM Referred By: Confirmed By: ROMIE MONTANA
--- NOTE | 2024-10-24 14:52 | ED.VIS.DYS ---
HPI History of Present Illness Chief Complaint: Shortness of Breath Informant: patient Onset/Context/Timing Onset: Today Context: gradual Timing: Continuous Quality: Positive for Orthopnea Worsened by: Lying flat Relieved by: Nothing Associated Symptoms sweats; Negative for cough, rhinorrhea, post nasal drip, ear pain, fever, sore throat, chills, clear sputum, white sputum, yellow sputum or green sputum Chest Pain: Positive for Aching, Pleuritic and - (Bilateral chest, right worse than left) Narrative Narrative: Patient presents with shortness of breath that began today. Patient states it came on gradually. Patient states she woke up and felt unwell. Patient states she laid back down and went back to sleep. Patient states she woke up after that she was having some shortness of breath. Patient states her breathing is worse when she lays flat. Patient states nothing makes it better. Patient admits to some sweats. Patient admits to some pain in her chest. Patient states it is worse on the right than on the left. Patient describes as aching. Patient states it is worse with deep breathing. Patient admits to some nausea but denies any vomiting. Patient has dialysis on Thursday and Thursday. Patient states she had a normal dialysis treatment on Thursday, 2 days ago. Patient states she got to her goal weight after dialysis. [facility] Medical History Hyperkalemia Fracture of fibula, right, closed Anemia Osteoarthritis of right knee Pathological fracture, right tibia, initial encounter for fracture Diabetes Dialysis patient Kidney disease GERD (gastroesophageal reflux disease) Sleep apnea Former smoker Asthma DVT (deep venous thrombosis) ESRD (end stage renal disease) on dialysis Fracture of right lower extremity Inability to walk Diabetes mellitus, type 2 Obesity Chronic anemia COPD with asthma Bipolar disorder Anxiety and depression HLD (hyperlipidemia) HTN (hypertension) Former tobacco use Neuropathy Fibromyalgia Kidney disease, chronic, stage IV (GFR 15-29 ml/min) History of tobacco use History of diabetes mellitus, type II History of COPD History of bipolar disorder Benign essential hypertension History of asthma Medical History no medical history Home Medications ?Medication ?Instructions ?Recorded ?Last Taken ?Type cholecalciferol (vitamin D3) 25 5,000 unit PO DAILY SUPPLEMENT 10/03/13 10/09/24 History mcg (1,000 unit) capsule (Vitamin D3) omeprazole 20 mg capsule,delayed 20 mg PO DAILY 08/23/14 10/09/24 History release melatonin 5 mg capsule 10 mg PO QHS sleep 05/27/16 10/09/24 History atorvastatin 40 mg tablet 40 mg PO QHS CHOLESTEROL 09/10/22 10/09/24 History sevelamer carbonate 800 mg tablet 1,600 mg PO TID 02/04/23 10/10/24 History hydroxyzine HCl 50 mg tablet 50 mg PO Q6H PRN itching 06/29/23 10/09/24 History acetaminophen 325 mg capsule 650 mg PO Q6H PRN pain 07/02/23 Unknown History (Tylenol) ondansetron HCl 4 mg tablet 4 mg PO Q8H PRN PRN nausea and 07/02/23 10/10/24 History vomiting clopidogrel 75 mg tablet 75 mg PO DAILY 09/06/24 10/09/24 History dulaglutide 0.75 mg/0.5 mL 0.75 mg subcut QWEEK 09/06/24 10/09/24 History subcutaneous pen injector (Trulicity) duloxetine 30 mg capsule,delayed 30 mg PO DAILY 09/06/24 10/09/24 History release nifedipine 90 mg tablet,extended 90 mg PO DAILY BP 09/06/24 10/09/24 History release pregabalin 25 mg capsule 25 mg PO QHS 09/06/24 10/09/24 History albuterol sulfate 90 mcg/actuation 2 puff inhalation Q4H PRN PRN 10/10/24 10/09/24 History aerosol inhaler shortness of breath or wheezing calcitriol 0.25 mcg capsule 1.5 mcg PO TUTHSA 10/10/24 10/08/24 History sucroferric oxyhydroxide 500 mg 500 mg PO TID 10/10/24 10/10/24 History chewable tablet (Velphoro) torsemide 100 mg tablet 100 mg PO DAILY 10/10/24 10/09/24 History prednisone 20 mg tablet 40 mg (2 x 20 mg) PO BREAKFAST 5 10/13/24 Unknown Rx days #10 tabs Allergy/AdvReac Type Severity Reaction Status Date / Time balsam carin Allergy Unknown UNKNOWN Verified 10/24/24 13:48 mold Allergy Unknown unknown Verified 10/24/24 13:48 lisinopril Allergy unknown Verified 10/24/24 13:48 Penicillins Allergy Anaphylaxis Verified 10/24/24 13:48 tetracycline (Tetracycline) Allergy Anaphylaxis Verified 10/24/24 13:48 codeine AdvReac Abd Verified 10/24/24 13:48 cramps/diarrhea diphenhydramine HCl (From AdvReac Upset Verified 10/24/24 13:48 Benadryl) Stomach hydrocodone bitartrate (From AdvReac Abd Verified 10/24/24 13:48 Vicodin) cramps/diarrhea NSAIDS (Non-Steroidal AdvReac Unknown Verified 10/24/24 13:48 Anti-Inflamma Family History Mother Heart disease Hypertension Diabetes Kidney disease Father Diabetes Surgical History H/O cataract extraction H/O vitrectomy History of appendectomy History of cholecystectomy H/O vascular surgery H/O gastric bypass S/P cholecystectomy S/P appendectomy Social History household members: none Smoking Status: Former smoker how long ago did patient quit smoking: Quit age 24. alcohol intake: never substance use type: does not use ROS ROS ED Constitutional Constitutional ED: Reports sweats; Denies chills or fever(s) Eyes Eyes: Reports blurry vision; Denies diplopia ENT ENT ED: Denies rhinorrhea or sore throat Cardiovascular Cardiovascular: Reports chest pain; Denies palpitations Respiratory/Chest Respiratory/Chest: Reports dyspnea; Denies cough Gastrointestinal Gastrointestinal: Denies nausea or vomiting Genitourinary Genitourinary ED: Denies dysuria or hematuria Musculoskeletal Musculoskeletal: Reports back pain and neck pain Integumentary Denies abscess or rash Neurologic Neurologic: Denies headache(s) or weakness Allergic/Immunologic Allergic/Immunologic ED: Denies mouth swelling or urticaria EXAM Physical Exam Const Vital Signs: 10/24/24 13:39 10/24/24 13:40 10/24/24 13:44 Temperature 98.3 F 98.9 F Temperature Source Oral Oral Pulse Rate 97 96 Respiratory Rate 18 20 H Respiratory Effort Respiratory Depth Respiratory Pattern Blood Pressure 136/77 H 154/76 H Blood Pressure Mean 96 102 Pulse Ox 94 84 97 Oxygen Delivery Method Nasal Cannula Room Air Nasal Cannula Oxygen Flow Rate (L/min) 2 2 10/24/24 13:49 10/24/24 14:36 10/24/24 14:44 Temperature 98.8 F Temperature Source Oral Pulse Rate 94 Respiratory Rate 18 Respiratory Effort Short of Breath Respiratory Depth Normal Respiratory Pattern Normal Blood Pressure 167/75 H Blood Pressure Mean 105 Pulse Ox 94 98 Oxygen Delivery Method Nasal Cannula Nasal Cannula Nasal Cannula Oxygen Flow Rate (L/min) 2 2 2 10/24/24 15:00 10/24/24 15:54 10/24/24 16:00 Temperature 98.8 F 98.7 F Temperature Source Oral Oral Pulse Rate 98 92 Respiratory Rate 16 19 H Respiratory Effort Respiratory Depth Respiratory Pattern Blood Pressure 155/85 H 155/85 H Blood Pressure Mean 108 108 Pulse Ox 98 99 97 Oxygen Delivery Method Nasal Cannula Non-Rebreather @ 15L/min Oxygen Flow Rate (L/min) 2 10/24/24 16:00 10/24/24 16:15 10/24/24 16:30 Temperature Temperature Source Pulse Rate Respiratory Rate Respiratory Effort Respiratory Depth Respiratory Pattern Blood Pressure 152/80 H 155/85 H 165/94 H Blood Pressure Mean 100 104 116 Pulse Ox 97 96 Oxygen Delivery Method Oxygen Flow Rate (L/min) 10/24/24 16:45 10/24/24 17:00 10/24/24 17:00 Temperature Temperature Source Pulse Rate Respiratory Rate Respiratory Effort Respiratory Depth Respiratory Pattern Blood Pressure 151/72 H 164/71 H Blood Pressure Mean 96 98 Pulse Ox 100 97 Oxygen Delivery Method Nasal Cannula Oxygen Flow Rate (L/min) 2 Positive well nourished and well developed Constitutional Narrative: BMI is 30.2 General Appearance ED: well developed and NAD HEENT Reports moist mucous membranes Neck supple, no meningeal signs and no JVD Resp normal respiratory effort Auscultation: rales bilateral 1/2 way up Cardio regular rate and regular rhythm GI non-tender and non-distended Palpation: soft Extremity normal to inspection Neuro oriented x3, CN's II-XII intact bilaterally and no sensory deficits noted Jacklyn Coma Scale: document GCS findings Spontaneous Obeys Commands Oriented 15 Sensorium / Orientation: alert Speech: speech normal Motor Exam: strength 5/5 throughout Psych mental status grossly normal MDM MDM MDM Narrative Medical decision making narrative: Differential diagnosis includes congestive heart failure, cardiac dysrhythmia, cardiac ischemia, pneumonia, bronchitis, and electrolyte abnormality. EKG will be obtained to assess for cardiac dysrhythmia and cardiac ischemia. Chest x-ray will be obtained to assess for pneumonia, bronchitis, congestive heart failure. CBC will be obtained to assess for leukocytosis and anemia. Basic metabolic profile will be obtained to assess for electrolyte abnormality and renal function. BNP will be obtained to assess for congestive heart failure. History & Record Review Additional record(s) reviewed:: Prior labs Lab Data Attestation: I reviewed the patient's lab results. Lab results narrative: CBC was reviewed. There is a mild anemia with a hemoglobin of 8.7 and hematocrit of 27.1. Platelets are slightly low at 135. These are consistent with previous results. Basic metabolic profile was reviewed. Chloride was slightly low at 90. BUN was 29 and creatinine was 5.97. These are improved from previous results. Glucose was mildly elevated at 316. BNP was reviewed and was greater than 70,000. Labs: Laboratory Results - last 24 hr 10/24/24 14:07 WBC 6.3 RBC 2.93 L Hgb 8.7 L Hct 27.1 L MCV 92.5 MCH 29.7 MCHC 32.1 RDW Std Deviation 47.4 H RDW Coeff of Ben 14.1 Plt Count 135 L MPV 11.4 Immature Gran % (Auto) 0.600 Neut % (Auto) 78.8 H Lymph % (Auto) 12.8 L [place] % (Auto) 4.9 Eos % (Auto) 2.4 Baso % (Auto) 0.5 Absolute Neuts (auto) 5.0 Absolute Lymphs (auto) 0.81 L Nucleated RBC % 0 Sodium 133 Potassium 3.7 Chloride 90 L Carbon Dioxide 25.3 Anion Gap 18 H BUN 29 H Creatinine 5.97 H Estim Creat Clear Calc 11.91 L Est GFR (MDRD) Non-Af 8 L BUN/Creatinine Ratio 4.9 L Glucose 316 H Calcium 8.8 NT pro BNP II > [address]44 H Radiography Chest X-Ray - ED: 2 View, Read by ED Physician, Read by Radiologist and CHF (Pulmonary edema) Diagnostic Testing: Clinical Impression(s) from Imaging Studies Chest X-Ray 10/24/24 16:00 IMPRESSION: Extensive pulmonary edema. Underlying focal consolidations not excluded. No pleural effusion or pneumothorax. Reading Location: [facility] [place] and lateral chest x-ray was obtained. There are 2 views. On my independent interpretation, lung soto show pulmonary edema. There is no pleural effusion or pneumothorax noted. There is normal cardiac silhouette. Bony thorax is normal. Radiologist also interpreted the x-ray and agrees. EKG Initial EKG: Attestation: I personally reviewed and interpreted this EKG as follows: Interpretation: Sinus Rhythm (95) and Non-Specific ST Changes Comments: EKG was obtained. On my independent interpretation, it showed a normal sinus rhythm with a rate of 95. TN interval, QRS interval, and QTc intervals were all normal. [place] was normal. There are nonspecific ST-T wave changes. Prior EKG tracings: available for review Prior: Unchanged (10/10/2024) Management Discussion w/another healthcare provider: Hospitalist Treatment and Re-Evaluation :: Patient was given a dose of Lasix here. Patient did not have any urine output with this as of yet. Patient is not on home oxygen. Currently, patient is on 2 L nasal cannula. Patient was advised of her findings. Patient is scheduled for dialysis tomorrow. However, she is requiring oxygen which she does not have at home. I will discuss case with the hospitalist for admission. She will admit the patient to PCU. Patient understood and was agreeable with the plan. All questions were answered. Discharge Plan Triage Chief Complaint: Shortness of Breath ED Provider: Sylvester Winston Dx/Rx/DC Orders Clinical Impression: Pulmonary edema, ESRD (end stage renal disease) on dialysis, Hypertension Prescriptions: No Action cholecalciferol (vitamin D3) [Vitamin D3] 1,000 UNIT capsule 5,000 unit PO DAILY omeprazole 20 MG capsule 20 mg PO DAILY melatonin 5 MG capsule 10 mg PO QHS atorvastatin 40 mg tablet 40 mg PO QHS sevelamer carbonate 800 mg tablet 1,600 mg PO TID acetaminophen [Tylenol] 325 mg capsule 650 mg PO Q6H PRN (Reason: pain ) ondansetron HCl 4 mg tablet 4 mg PO Q8H PRN PRN (Reason: nausea and vomiting) hydroxyzine HCl 50 mg tablet 50 mg PO Q6H PRN (Reason: itching) nifedipine 90 mg tablet extended release 90 mg PO DAILY Patient Comments: [NO ORIGINAL SIG] clopidogrel 75 mg tablet 75 mg PO DAILY duloxetine 30 mg capsule,delayed release(DR/EC) 30 mg PO DAILY pregabalin 25 mg capsule 25 mg PO QHS Trulicity 0.75 mg/0.5 mL pen injector 0.75 mg subcut QWEEK torsemide 100 mg tablet 100 mg PO DAILY Velphoro 500 mg tablet,chewable 500 mg PO TID calcitriol 0.25 mcg capsule 1.5 mcg PO TUTHSA Rx Instructions: 1.5 mcg orally 3XW; albuterol sulfate 90 mcg/actuation HFA aerosol inhaler 2 puff INHALATION Q4H PRN PRN (Reason: shortness of breath or wheezing) prednisone 20 mg Tablet 40 mg PO BREAKFAST 5 Days Qty: 10 0RF Primary Care Provider: Aki Archibald Referrals: Aki Archibald MD [Primary Care Provider] - Print Language: Armenian Disposition Disposition: Acute Care Hospital [facility]
[2024-10-24 15:23] LABS: Hematocrit 27.1 % (37-47); Hemoglobin 8.7 g/dL (12.0-15.0); Immature Granulocytes Count 0.040 X10^3/uL (0.0-0.0); Mean Corp Hgb Conc 32.1 g/dL (32-36); Mean Corpuscular Volume 92.5 fL (81-99); Mean Platelet Vol. 11.4 fl (6.2-12.0); NRBC Flagged by Analyzer 0 % (0-5); Platelet Count 135 K/mm3 (150-450); RBC Distribution Width CV 14.1 % (11.6-14.6); RBC Distribution Width SD 47.4 fl (35.1-43.9); Red Blood Count 2.93 M/mm3 (4.2-5.4); White Blood Count 6.3 K/mm3 (4.4-11.0)
[2024-10-24 15:55] LABS: Anion Gap 18 (5-15); BUN 29 mg/dL (4-19); BUN/Creat Ratio 4.9 RATIO (10-20); Calcium,Total 8.8 mg/dL (7.6-11.0); Carbon Dioxide 25.3 mmol/L (21.0-32.0); Chloride 90 mmol/L (98-108); Estimated Creatinine Clearance 11.91 ml/min (50-250); Glucose 316 mg/dL (70-99); Potassium 3.7 mmol/L (3.3-5.1)
--- NOTE | 2024-10-24 16:00 | RAD_ITS ---
PROCEDURE: CHEST PA AND LATERAL 10/24/2024 REASON FOR EXAM: DYSPNEA TECHNIQUE: CHEST PA AND LATERAL COMPARISON: none FINDINGS: Extensive pulmonary edema. Underlying focal consolidations not excluded. No pleural effusion or pneumothorax. Cardiac silhouette is within normal limits. No acute fractures. RAD/Chest PA and Lateral IMPRESSION: Extensive pulmonary edema. Underlying focal consolidations not excluded. No pleural effusion or pneumothorax. Reading Location: [facility]
[2024-10-24 16:35] LABS: Pro- Brain NATRIURETIC PEPTIDE > 70000 pg/mL (<=900)
--- NOTE | 2024-10-24 18:54 | HP.PCM.HOS_ITS ---
HPI - General General Date of Admission: 10/24/24 Date of Service: 10/24/24 Chief Complaint: SOB HPI Narrative Margareth OLIVARES, is a 59-year-old female history of GERD, end-stage renal disease on hemodialysis, hypertension, COPD, depression presented to [facility] ED 10/24/2024 with shortness of breath lung pain. In the ED patient afebrile, heart rate 97, blood pressure 136/77 respiratory rate 18 with pulse ox 84% on room air, patient placed on 2 L nasal cannula. CBC with BUN of 29 and creatinine 5.97, glucose 316. CBC with normal white blood cell count and hemoglobin of 8.7. proBNP greater than 70,000 however this is the same as previous but chest x-ray demonstrated extensive pulmonary edema. Patient does still make urine so she was given IV Lasix and hospitalist consulted for admission. Patient evaluated at bedside, she reports that this morning she woke up short of breath, her lungs hurt and she felt nauseous and exhausted, she went back to bed because that usually helps her feel better but when she woke up she was even more short of breath and had tightening feeling, reports that she does get problems with her lungs hurting and has been happening more recently over the past couple of months and does note that she gets worsened feelings in her chest when she is fluid overloaded, also notes earlier today she had a headache and blurry vision and found her pulse ox to be 80% on room air. Does feel little bit better now that she is on oxygen in the ED and got Lasix and pain medication. Denying any upper chest pain, reports she does get chronic nausea. Denies any cough or sputum production. FORMERLY [facility], [facility] Medical History (Updated 10/24/24 @ 20:[address] Mone Riggs MD) Anemia Anxiety Anxiety and depression Asthma Benign essential hypertension Bipolar disorder Chronic anemia COPD (chronic obstructive pulmonary disease) COPD with asthma CPAP (continuous positive airway pressure) dependence Depression Diabetes Diabetes mellitus, type 2 Dialysis patient DVT (deep venous thrombosis) ESRD (end stage renal disease) on dialysis Fibromyalgia Former smoker Former tobacco use Fracture of fibula, right, closed Fracture of right lower extremity GERD (gastroesophageal reflux disease) History of asthma History of bipolar disorder History of COPD History of diabetes mellitus, type II History of tobacco use HLD (hyperlipidemia) HTN (hypertension) Hyperkalemia Inability to walk Kidney disease Kidney disease, chronic, stage IV (GFR 15-29 ml/min) Neuropathy Obesity Osteoarthritis of right knee Pathological fracture, right tibia, initial encounter for fracture Sleep apnea Medical History no medical history Home Medications ?Medication ?Instructions ?Recorded ?Last Taken ?Type cholecalciferol (vitamin D3) 25 5,000 unit PO DAILY CORNELL PPLEMENT 10/03/13 10/23/24 21:00 History mcg (1,000 unit) capsule (Vitamin 5,00 0 unit D3) omeprazole 20 mg capsule,delayed 20 mg PO DAILY GERD 0 08/23/14 10/23/24 21:00 History release 20 mg melatonin 5 mg capsule 10 mg PO QHS sleep 05/27/16 10/23/24 21:00 History 10 mg atorvastatin 40 mg tablet 40 mg PO QHS CHOLESTEROL 02/2110/23/24 21:00 History 40 mg sevelamer carbonate 800 mg tablet 1,600 mg PO TID food 02/04/23 10/10/24 History hydroxyzine HCl 50 mg tablet 50 mg PO Q6H PRN itching 06/29/23 10/23/24 21:00 History 50 mg acetaminophen 325 mg capsule 650 mg PO Q6H PRN pain Unknown History (Tylenol) ondansetron HCl 4 mg tablet 4 mg PO Q8H PRN PRN nausea and 07/02/23 10/10/24 History vomiting dulaglutide 0.75 mg/0.5 mL 0.75 mg subcut QWEEK inject ion 09/06/24 10/19/24 09:00 History subcutaneous pen injector 0.75 mg (Trulicity) duloxetine 30 mg capsule,delayed 30 mg PO DAILY mood 0 09/06/24 10/23/24 21:00 History release 30 mg nifedipine 90 mg tablet,extended 90 mg PO DAILY BP 10/2410/23/24 21:00 History release 90 mg pregabalin 25 mg capsule 50 mg PO QHS neuropathy 10/2410/23/24 21:00 History albuterol sulfate 90 mcg/actuation 2 puff inhalation Q 2H PRN 10/10/24 10/24/24 12:30 History aerosol inhaler shortness of breath or wheez ing 2 puff calcitriol 0.25 mcg capsule 1.5 mcg PO TUTHSA dialysis 10/10/24 10/08/24 History sucroferric oxyhydroxide 500 mg 500 mg PO TID phosphat e inhib 10/10/24 10/10/24 History chewable tablet (Velphoro) torsemide 100 mg tablet 100 mg PO TUTHSA edema 10/1010/22/24 21:00 History 100 mg fluticasone propionate 50 2 spray intranasal Q12H andie rgies 10/24/24 Unknown History mcg/actuation nasal spray,suspension Allergy/AdvReac Type Severity Reaction Status Date / Time balsam carin Allergy Unknown UNKNOWN Verified 10/24/24 13:48 mold Allergy Unknown unknown Verified 10/24/24 13:48 lisinopril Allergy unknown Verified 10/24/24 13:48 Penicillins Allergy Anaphylaxis Verified 10/24/24 13:48 tetracycline (Tetracycline) Allergy Anaphylaxis Verified 10/24/24 13:48 codeine AdvReac Abd Verified 10/24/24 13:48 cramps/diarrhea diphenhydramine HCl (From AdvReac Upset Verified 10/24/24 13:48 Benadryl) Stomach hydrocodone bitartrate (From AdvReac Abd Verified 10/24/24 13:48 Vicodin) cramps/diarrhea NSAIDS (Non-Steroidal AdvReac Unknown Verified 10/24/24 13:48 Anti-Inflamma Family History Mother Heart disease Hypertension Diabetes Kidney disease Father Diabetes Surgical History H/O cataract extraction H/O gastric bypass H/O vascular surgery H/O vitrectomy History of appendectomy History of cholecystectomy S/P appendectomy S/P cholecystectomy Social History household members: none Smoking Status: Former smoker how long ago did patient quit smoking: Quit age 24. alcohol intake: never substance use type: does not use ROS ROS Narrative General: Denies fever/chills HENT: Resolved headache, denies stuffy nose, denies sore throat EYES: Had blurry vision that is resolved resp: No productive cough, does have increased shortness of breath especially when lying down Cardiac: Denies any central chest pressure, has some squeezing feeling around her rib cage GI: Denies abdominal pain, denies changes in bowel, intermittently gets nauseous which is not new : Denies changes in urination, does still urinate Extremity: Denies any increased swelling MSK: Denies any new weakness Neuro: Denies any numbness/tingling Heme: Denies any bleeding or bruising Skin: Denies rashes Psychiatric: No complaints voiced Vital Signs Vital Signs Vital Signs: 10/24/24 13:39 10/24/24 13:40 10/24/24 13:44 Temperature 98.3 F 98.9 F Temperature Source Oral Oral Pulse Rate 97 96 Respiratory Rate 18 20 H Respiratory Effort Respiratory Depth Respiratory Pattern Blood Pressure 136/77 H 154/76 H Blood Pressure Mean 96 102 Pulse Ox 94 84 97 Oxygen Delivery Method Nasal Cannula Room Air Nasal Cannula Oxygen Flow Rate (L/min) 2 2 10/24/24 13:49 10/24/24 14:36 10/24/24 14:44 Temperature 98.8 F Temperature Source Oral Pulse Rate 94 Respiratory Rate 18 Respiratory Effort Short of Breath Respiratory Depth Normal Respiratory Pattern Normal Blood Pressure 167/75 H Blood Pressure Mean 105 Pulse Ox 94 98 Oxygen Delivery Method Nasal Cannula Nasal Cannula Nasal Cannula Oxygen Flow Rate (L/min) 2 2 2 10/24/24 15:00 10/24/24 15:54 10/24/24 16:00 Temperature 98.8 F 98.7 F Temperature Source Oral Oral Pulse Rate 98 92 Respiratory Rate 16 19 H Respiratory Effort Respiratory Depth Respiratory Pattern Blood Pressure 155/85 H 155/85 H Blood Pressure Mean 108 108 Pulse Ox 98 99 97 Oxygen Delivery Method Nasal Cannula Non-Rebreather @ 15L/min Oxygen Flow Rate (L/min) 2 10/24/24 16:00 10/24/24 16:15 10/24/24 16:30 Temperature Temperature Source Pulse Rate Respiratory Rate Respiratory Effort Respiratory Depth Respiratory Pattern Blood Pressure 152/80 H 155/85 H 165/94 H Blood Pressure Mean 100 104 116 Pulse Ox 97 96 Oxygen Delivery Method Oxygen Flow Rate (L/min) 10/24/24 16:45 10/24/24 17:00 10/24/24 17:00 Temperature Temperature Source Pulse Rate Respiratory Rate Respiratory Effort Respiratory Depth Respiratory Pattern Blood Pressure 151/72 H 164/71 H Blood Pressure Mean 96 98 Pulse Ox 100 97 Oxygen Delivery Method Nasal Cannula Oxygen Flow Rate (L/min) 2 08/25/25 17:15 10/24/24 17:30 10/24/24 17:45 Temperature Temperature Source Pulse Rate Respiratory Rate Respiratory Effort Respiratory Depth Respiratory Pattern Blood Pressure 168/87 H 162/77 H 158/79 H Blood Pressure Mean 110 100 100 Pulse Ox 91 94 95 Oxygen Delivery Method Oxygen Flow Rate (L/min) 10/24/24 18:00 10/24/24 18:00 10/24/24 18:12 Temperature 98.8 F 98.8 F Temperature Source Oral Pulse Rate 90 90 Respiratory Rate 16 16 Respiratory Effort Respiratory Depth Respiratory Pattern Blood Pressure 158/72 H 158/72 H 158/72 H Blood Pressure Mean 100 96 100 Pulse Ox 94 94 94 Oxygen Delivery Method Nasal Cannula Oxygen Flow Rate (L/min) 2 Weight Weight: 90.1 kg Body Mass Index (BMI) 30.2 Physical Exam Narrative General: Alert, oriented, no apparent distress HEENT: Atraumatic, normocephalic Eyes: Anicteric, normal conjunctiva, extraocular movements grossly intact Neck: Supple Respiratory: Diminished bilaterally, normal respiratory effort Cardiovascular: Regular rate and rhythm GI: Soft, nontender, nondistended Extremities: No edema Musculoskeletal: Moving all extremities Neuro: No overt focal neurological deficits Skin: No rashes appreciated Psych: Cooperative Results Lab / Micro Data 10/24/24 14:07 10/24/24 14:07 Labs: Laboratory Results - last 24 hr 10/24/24 14:07: WBC 6.3, RBC 2.93 L, Hgb 8.7 L, Hct 27.1 L, MCV 92.5, MCH 29.7, MCHC 32.1, RDW Std Deviation 47.4 H, RDW Coeff of Ben 14.1, Plt Count 135 L, MPV 11.4, Immature Gran % (Auto) 0.600, Neut % (Auto) 78.8 H, Lymph % (Auto) 12.8 L, Clark % (Auto) 4.9, Eos % (Auto) 2.4, Baso % (Auto) 0.5, Absolute Neuts (auto) 5.0, Absolute Lymphs (auto) 0.81 L, Nucleated RBC % 0, Sodium 133, Potassium 3.7, Chloride 90 L, Carbon Dioxide 25.3, Anion Gap 18 H, BUN 29 H, Creatinine 5.97 H, Estim Creat Clear Calc 11.91 L, Est GFR (MDRD) Non-Af 8 L, B UN/Creatinine Ratio 4.9 L, Glucose 316 H, Calcium 8.8, [place] BNP II > 21227 H Imaging Radiology Impression Chest X-Ray 10/24/24 16:00 IMPRESSION: Extensive pulmonary edema. Underlying focal consolidations not excluded. No pleural effusion or pneumothorax. Reading Location: [facility] Assessment & Plan Assessment/Plan (1) Hypoxia: PLAN: Plan # Shortness of breath and hypoxia secondary to presumed fluid overload -Monitor on telemetry -Patient resting comfortably on 2 L nasal cannula -X-ray read as extensive pulmonary edema -Continue IV Lasix -Consult nephrology -Does not appear to be acutely distressed at this time and is maintaining sats do not think patient needs emergent dialysis -No cough that would make me suspicious for pneumonia, afebrile with normal white count or viral etiology at this time, do not think patient needs any empiric antibiotics on current exam/eval -Shortness of breath especially when patient is lying flat, for now we will keep head of bed elevated -Last echo with EF of 65% and stage I diastolic dysfunction back in March 2024 and patient end-stage renal disease on hemodialysis, combination in addition to untreated sleep apnea may be cause for patient's decompensation -Did order troponins given the lower chest tightness, with her fluid overload and renal failure expect them to be elevated will assess for proportion of elevation as a severe elevation in may suggest more cardiac nature -If troponins more elevated than previously can consider echocardiogram and further workup -EKG nonspecific, normal sinus rhythm, no STEMI -Daily weights, I's and O's #ESRD on HD -Consult nephrology -Renal diet -Daily weights, I's and O's #Type 2 diabetes mellitus -Glucose checks and sliding scale insulin #GERD -Continue PPI #Hx COPD -Albuterol as needed -Incentive spirometer #Hx CASSIE - Noncompliant with CPAP #Hypertension - Continue medications #Depression/anxiety -Continue home medications #DVT ppx: heparin subq Mone Riggs MD Charges/Coding Visit Charges Inpatient E&M: 06750 Init Hosp L2
--- NOTE | 2024-10-24 19:46 | CPS ---
pt does have own cpap at home-did not want hospitals at this time-will wear 2 l/m via nc at hs
[2024-10-24 21:35] LABS: Troponin T High Sensitivity 234 ng/L (<=14)
--- NOTE | 2024-10-24 21:43 | ECHOD_ITS ---
Reason For Study Reason For Study: CHEST PAIN Procedure This was a 2D Doppler, Color Flow transthoracic echocardiogram. Exam performed portable in patient room. Left Ventricle Moderately dilated left ventricle. The estimated ejection fraction is 25???30 %. Right Ventricle Normal right ventricle. Mild to moderate global right ventricular systolic dysfunction. Atria The left atrium is moderately enlarged. Mitral Valve The mitral valve is structurally normal. No prolapse or stenosis seen. Mild (1+) mitral valve insufficiency. Tricuspid Valve Normal tricuspid valve. No tricuspid valve insufficiency. Aortic Valve Trisinus/trileaflet aortic valve. Pulmonic Valve The pulmonic valve is not well visualized. Great Vessels The aortic root is not well visualized. Pericardium/Pleural Small (<1.0 cm) pericardial effusion. MMode/2D Measurements & Calculations LVIDd: 5.6 cm IVSd: 0.78 cm LVOT diam: 2.0 cm LVIDs: 4.8 cm LVPWd: 0.89 cm LVOT area: 3.0 cm2 RVDd: 3.9 cm FS: 13.6 % CO(Teich): 4.0 l/min asc Aorta Diam: 3.5 cm LAV(MOD- bp): 69.5 ml LAV(MOD- bp) Indexed: 35.1 ml/m2 LAV(MOD- sp2): 62.7 ml LAV(MOD- sp4): 77.4 ml CO(MOD- sp4): 3.9 l/min LVAd ap4: 34.6 cm2 LVAd ap2: 31.8 cm2 SV(MOD- sp4): 43.6 ml LVLd ap4: 8.7 cm LVLd ap2: 8.6 cm EDV(MOD-sp4): 114.3 ml EDV(MOD-sp2): 98.0 ml SI(MOD- sp4): 22.0 ml/m2 EDV(sp4-el): 116.2 ml EDV(sp2-el): 99.6 ml LVAs ap4: 25.7 cm2 LVAs ap2: 26.2 cm2 LVLs ap4: 8.0 cm LVLs ap2: 8.2 cm ESV(MOD-sp4): 70.6 ml ESV(MOD-sp2): 71.1 ml ESV(sp4-el): 70.4 ml ESV(sp2-el): 71.6 ml EF(MOD-sp4): 38.2 % EF(MOD-sp2): 27.4 % EF(sp4-el): 39.4 % SV(MOD-sp2): 26.9 ml SV(sp4-el): 45.8 ml Ao sinus diam: 2.8 cm SI(MOD-sp2): 13.6 ml/m2 Ao ST Junction: 2.5 cm LA dimension(2D): 4.3 cm LA A4 area: 23.2 cm2 TAPSE: 1.5 cm RA A4 area: 13.7 cm2 Time Measurements MV dec time: 0.09 sec Doppler Measurements & Calculations MV E max montez: 128.0 cm/sec Lat Peak E' Montez: 7.8 cm/sec Med Peak E' Montez: 7.0 cm/sec MV A max montez: 53.2 cm/sec E/E' lat: 16.4 E/E' med: 18.2 MV E/A: 2.4 MV dec slope: 1380 cm/sec2 Ao V2 max: 159.1 cm/sec LV V1 max: 125.4 cm/sec Ao max P.1 mmHg LV V1 max P.3 mmHg Ao V2 mean: 103.6 cm/sec LV V1 mean P.1 mmHg Ao mean P.1 mmHg LV V1 mean: 80.8 cm/sec Ao V2 VTI: 28.4 cm LV V1 VTI: 22.4 cm AV (velocity ratio): 0.79 LUISA(I,D): 2.4 cm2 LUISA(V,D): 2.4 cm2 CO(LVOT): 6.3 l/min PA V2 max: 79.8 cm/sec SV(LVOT): 67.0 ml ECHO/Echo Complete Interpretation Summary The estimated ejection fraction is 25???30 %. Severe LV systolic dysfunction with global LV hypokinesia Significant change from previous echocardiogram in March 2024 with remarkably reduced LV systolic dysfunction. Ordering Physician: Mone Riggs Performed By: Cande Shrestha, COSMO
[2024-10-24] MEDS: Senna/Docusate Sodium 1 Tablet 2 TABLET PO (22:11)
[2024-10-24] MEDS: 0.9% Saline Lock 10 ML Syringe IV (22:12)
[2024-10-24] MEDS: Heparin Injection (Vial) 5,000 UNIT/ML VIAL 5000 UNIT SC (22:14)
[2024-10-24] MEDS: Fluticasone 0.05% 1 SPRAY NASAL.SRY 2 SPRAY NASAL (22:45)
[2024-10-25] VITALS (14 sets, daily range): BP systolic 105–165; BP diastolic 56–80; PULSE 81–95; RESP 14–18; TEMP 36.3–36.9; O2SAT 88–99; BMI 28.3; BMI 27.2
[2024-10-25 00:02] LABS: Troponin T High Sens 2 HR 219 ng/L (<=14)
[2024-10-25 01:51] LABS: Troponin T High Sens 4 HR 230 ng/L (<=14)
[2024-10-25 06:01] LABS: Hematocrit 25.6 % (37-47); Hemoglobin 8.3 g/dL (12.0-15.0); Immature Granulocytes Count 0.040 X10^3/uL (0.0-0.0); Mean Corp Hgb Conc 32.4 g/dL (32-36); Mean Corpuscular Volume 93.4 fL (81-99); Mean Platelet Vol. 11.1 fl (6.2-12.0); NRBC Flagged by Analyzer 0 % (0-5); Platelet Count 143 K/mm3 (150-450); RBC Distribution Width CV 14.2 % (11.6-14.6); RBC Distribution Width SD 47.5 fl (35.1-43.9); Red Blood Count 2.74 M/mm3 (4.2-5.4); White Blood Count 7.1 K/mm3 (4.4-11.0)
[2024-10-25 06:33] LABS: Anion Gap 16 (5-15); BUN 35 mg/dL (4-19); BUN/Creat Ratio 5.0 RATIO (10-20); Calcium,Total 8.6 mg/dL (7.6-11.0); Carbon Dioxide 25.0 mmol/L (21.0-32.0); Chloride 93 mmol/L (98-108); Estimated Creatinine Clearance 9.98 ml/min (50-250); Glucose 125 mg/dL (70-99); Potassium 3.7 mmol/L (3.3-5.1)
[2024-10-25] MEDS: PureFlow B 2K Dialysis Soln 1 BAG 6 BAG PF (08:30)
[2024-10-25] MEDS: 0.9% Normal Saline 1,000 ML IV.SOLN. 1000 ML OPERA.SITE (08:30)
[2024-10-25] MEDS: Cholecalciferol (Vit D3) 125 MCG CAPSULE (5,000 UNITS) PO ×2 (08:52)
[2024-10-25] MEDS: SEVELAMER CARBONATE 800 MG TABLET 1600 MG PO ×3 (08:53→16:40)
[2024-10-25] MEDS: Fluticasone 0.05% 1 SPRAY NASAL.SRY 2 SPRAY NASAL ×2 (08:53→21:12)
--- NOTE | 2024-10-25 08:54 | CASEMGMT ---
Discharge Planning A list of HH providers including quality and resource use data and consistent with the patient's preferred geographic region, medical needs, and insurance network was created in [employer].? This list was provided to the RN JOANIE. Elenita Peoples, Discharge Planning Asst.
--- NOTE | 2024-10-25 09:02 | PCM.PN.HOSP ---
Reason for Visit Chief Complaint: SOB Subjective Subjective Seen on dialysis. Breathing better. Objective Data Objective Data Vital Signs: Vital Signs Temp Pulse Resp BP Pulse Ox O2 Del Method O2 Flow Rate 36.3 C L 86 18 140/62 H 94 Nasal Cannula 2 10/25/24 04:20 10/25/24 04:20 10/25/24 04:20 10/25/24 04:20 10/25/24 07:46 10/25/24 07:46 10/25/24 07:46 Oxygen Flow Rate (L/min) 2 Oxygen Delivery Method Nasal Cannula Weight: 84.4 kg Body Mass Index (BMI) 28.3 Intake & Output: Intake and Output for Last 24 Hours 10/23/24 10/24/24 10/25/24 23:59 23:59 23:59 Intake Total 120 / 120 Output Total 100 / 100 Balance 120 / 120 -100 / -100 Lab / Micro Data 10/25/24 05:30 10/25/24 05:30 Labs: Laboratory Results - last 24 hr 10/24/24 14:07: WBC 6.3, RBC 2.93 L, Hgb 8.7 L, Hct 27.1 L, MCV 92.5, MCH 29.7, MCHC 32.1, RDW Std Deviation 47.4 H, RDW Coeff of Ben 14.1, Plt Count 135 L, MPV 11.4, Immature Gran % (Auto) 0.600, Neut % (Auto) 78.8 H, Lymph % (Auto) 12.8 L, Warrick % (Auto) 4.9, Eos % (Auto) 2.4, Baso % (Auto) 0.5, Absolute Neuts (auto) 5.0, Absolute Lymphs (auto) 0.81 L, Nucleated RBC % 0, Sodium 133, Potassium 3.7, Chloride 90 L, Carbon Dioxide 25.3, Anion Gap 18 H, BUN 29 H, Creatinine 5.97 H, Estim Creat Clear Calc 11.91 L, Est GFR (MDRD) Non-Af 8 L, BUN/Creatinine Ratio 4.9 L, Glucose 316 H, Calcium 8.8, [place] > [address]26 H 10/24/24 20:58: Troponin T High Sens 234 H* D 10/24/24 22:10: POC Glucose 379 H 10/24/24 22:55: Troponin T Hi Sens 2 Hr 219 H* 10/25/24 01:10: Troponin T Hi Sens 4Hr 230 H* 10/25/24 05:30: WBC 7.1, RBC 2.74 L, Hgb 8.3 L, Hct 25.6 L, MCV 93.4, MCH 30.3, MCHC 32.4, RDW Std Deviation 47.5 H, RDW Coeff of Ben 14.2, Plt Count 143 L, MPV 11.1, Immature Gran % (Auto) 0.600, Neut % (Auto) 73.0 H, Lymph % (Auto) 15.0 L, Warrick % (Auto) 7.3, Eos % (Auto) 3.5, Baso % (Auto) 0.6, Absolute Neuts (auto) 5.2, Absolute Lymphs (auto) 1.07, Nucleated RBC % 0, Sodium 133, Potassium 3.7, Chloride 93 L, Carbon Dioxide 25.0, Anion Gap 16 H, BUN 35 H, Creatinine 6.91 H, Estim Creat Clear Calc 9.98 L*, Est GFR (MDRD) Non-Af 6 L, BUN/Creatinine Ratio 5.0 L, Glucose 125 H, Calcium 8.6 10/25/24 06:35: POC Glucose 126 H Radiography Diagnostic Testing: Radiology Impression Chest X-Ray 10/24/24 16:00 IMPRESSION: Extensive pulmonary edema. Underlying focal consolidations not excluded. No pleural effusion or pneumothorax. Reading Location: [facility] Physical Exam Const alert and no apparent distress Constitutional Narrative: Breathing better. Nontoxic. HEENT head/scalp atraumatic and moist oral mucous membranes Resp normal respiratory effort, no retractions, no use of accessory muscles and clear to auscultation bilaterally Cardio regular rate, regular rhythm, S1 normal heart sound and S2 normal heart sound GI normal to inspection, nondistended, normoactive bowel sounds, soft to palpation, non-tender and non-distended Extremity normal to inspection, full ROM and no clubbing, cyanosis or edema Neuro Sensorium / Orientation: awake and alert Assessment & Plan Assessment/Plan (1) (HFpEF) heart failure with preserved ejection fraction: PLAN: Echo from March 18, 2024 showed EF of 65%. Primarily this is due to volume overload from end-stage renal disease on hemodialysis. Patient did receive IV furosemide but ultimately the patient needs dialysis which nephrology is on consultation. Current weight is 84.4 kg. Patient had a weight of 79.8 back on October 13 which may be around his dry weight. On dialysis. Goal of try to get 4 L off today. PLAN: Plan Chronic medical conditions Hypertension: Continue with nifedipine End-stage renal disease: Nephrology on consult as above. Continue with sevelamer. Mood disorder: Continue duloxetine GERD: Continue with PPI VTE prophylaxis with subcu heparin Charges/Coding Visit Charges Inpatient E&M: 24025 Subs Hosp L2
[2024-10-25] MEDS: Heparin Injection (Vial) 5,000 UNIT/ML VIAL 5000 UNIT SC ×2 (13:21→21:13)
[2024-10-25] MEDS: NIFEdipine 90 MG Tablet PO (13:22)
--- NOTE | 2024-10-25 13:47 | CASEMGMT ---
Social Work- SW met with pt to verify directives. SW introduced self and role. Pt reports sister Halle as primary agent. Sister Sabine reported as alternate. Documents requested for scan into chart. ALEE Cristina
--- NOTE | 2024-10-25 14:25 | PCM.CONS.R ---
Assessment & Plan Assessment/Plan (1) ESRD (end stage renal disease) on dialysis: PLAN: On hemodialysis Thursday, , Thursday schedule. Reviewed records from outpatient dialysis unit. Dry weight is around 80.5 kg. And Thursday she is 80 point 8-1/2 dialysis, close to dry weight. Today she came in about 83 kg which is only about 2-1/2 kg again. Still had shortness of breath. Chest x-ray reviewed, looks somewhat wet. CT chest from last admission showed right-sided pleural effusion, edema pattern. Will continue to fluid challenge. Up until recently she was severely cramping with dialysis hence dry weight had to be adjusted up. Prior to that she had low blood pressures as well. Other events include right knee surgery, it seems one of the nails is protruding outside. She is scheduling appointment with orthopedics as outpatient. HPI Consult Data Date of Consult: 10/25/24 HPI Narrative Reason for Consultation: ESRD. HPI Narrative: Margareth OLIVARES, is a 59 F who presents to the hospital with shortness of breath. Nephrology on consultation due to ESRD. On hemodialysis Thursday, , Thursday schedule. Last dialysis was Thursday, uneventful. Dry weight is around 80.5 kg, she is close to dry weight. Presented with shortness of breath, chest x-ray looked better on admission. Received dialysis this morning, 4 L removed. Feels better. Still on oxygen. Not much peripheral edema. [facility] Medical History (Updated 10/25/24 @ 09:[address] Sylvester Ortiz, DO) Anxiety Depression CPAP (continuous positive airway pressure) dependence COPD (chronic obstructive pulmonary disease) Anemia Hyperkalemia Osteoarthritis of right knee Fracture of fibula, right, closed Pathological fracture, right tibia, initial encounter for fracture Diabetes Dialysis patient Kidney disease GERD (gastroesophageal reflux disease) Sleep apnea Former smoker Asthma DVT (deep venous thrombosis) ESRD (end stage renal disease) on dialysis Fracture of right lower extremity Inability to walk Diabetes mellitus, type 2 Obesity Chronic anemia COPD with asthma Bipolar disorder Anxiety and depression HLD (hyperlipidemia) HTN (hypertension) Former tobacco use Neuropathy Fibromyalgia Kidney disease, chronic, stage IV (GFR 15-29 ml/min) History of tobacco use History of diabetes mellitus, type II History of COPD History of bipolar disorder Benign essential hypertension History of asthma Medical History no medical history Home Medications ?Medication ?Instructions ?Recorded ?Last Taken ?Type cholecalciferol (vitamin D3) 25 5,000 unit PO DAILY SUPPLEMENT 10/03/13 10/23/24 21:00 History mcg (1,000 unit) capsule (Vitamin 5,000 unit D3) omeprazole 20 mg capsule,delayed 20 mg PO DAILY GERD 08/23/14 10/23/24 21:00 History release 20 mg melatonin 5 mg capsule 10 mg PO QHS sleep 05/27/16 10/23/24 21:00 History 10 mg atorvastatin 40 mg tablet 40 mg PO QHS CHOLESTEROL 09/10/22 10/23/24 21:00 History 40 mg sevelamer carbonate 800 mg tablet 1,600 mg PO TID food 02/04/23 10/10/24 History hydroxyzine HCl 50 mg tablet 50 mg PO Q6H PRN itching 06/29/23 10/23/24 21:00 History 50 mg acetaminophen 325 mg capsule 650 mg PO Q6H PRN pain 07/02/23 Unknown History (Tylenol) ondansetron HCl 4 mg tablet 4 mg PO Q8H PRN PRN nausea and 07/02/23 10/10/24 History vomiting dulaglutide 0.75 mg/0.5 mL 0.75 mg subcut QWEEK injection 09/06/24 10/19/24 09:00 History subcutaneous pen injector 0.75 mg (Trulicity) duloxetine 30 mg capsule,delayed 30 mg PO DAILY mood 09/06/24 10/23/24 21:00 History release 30 mg nifedipine 90 mg tablet,extended 90 mg PO DAILY BP 09/06/24 10/23/24 21:00 History release 90 mg pregabalin 25 mg capsule 50 mg PO QHS neuropathy 09/06/24 10/23/24 21:00 History albuterol sulfate 90 mcg/actuation 2 puff inhalation Q2H PRN 10/10/24 10/24/24 12:30 History aerosol inhaler shortness of breath or wheezing 2 puff calcitriol 0.25 mcg capsule 1.5 mcg PO TUTHSA dialysis 10/10/24 10/08/24 History sucroferric oxyhydroxide 500 mg 500 mg PO TID phosphate inhib 10/10/24 10/10/24 History chewable tablet (Velphoro) torsemide 100 mg tablet 100 mg PO TUTHSA edema 10/10/24 10/22/24 21:00 History 100 mg fluticasone propionate 50 2 spray intranasal Q12H allergies 10/24/24 Unknown History mcg/actuation nasal spray,suspension Allergy/AdvReac Type Severity Reaction Status Date / Time renetta del rosario Allergy Unknown UNKNOWN Verified 10/24/24 13:48 mold Allergy Unknown unknown Verified 10/24/24 13:48 lisinopril Allergy unknown Verified 10/24/24 13:48 Penicillins Allergy Anaphylaxis Verified 10/24/24 13:48 tetracycline (Tetracycline) Allergy Anaphylaxis Verified 10/24/24 13:48 codeine AdvReac Abd Verified 10/24/24 13:48 cramps/diarrhea diphenhydramine HCl (From AdvReac Upset Verified 10/24/24 13:48 Benadryl) Stomach hydrocodone bitartrate (From AdvReac Abd Verified 10/24/24 13:48 Vicodin) cramps/diarrhea NSAIDS (Non-Steroidal AdvReac Unknown Verified 10/24/24 13:48 Anti-Inflamma Family History Mother Heart disease Hypertension Diabetes Kidney disease Father Diabetes Surgical History H/O cataract extraction H/O vitrectomy History of appendectomy History of cholecystectomy H/O vascular surgery H/O gastric bypass S/P cholecystectomy S/P appendectomy Social History household members: none Smoking Status: Former smoker how long ago did patient quit smoking: Quit age 24. alcohol intake: never substance use type: does not use ROS ROS Narrative Negative except above Physical Exam Narrative Alert awake oriented x 3 no obvious distress no pallor no icterus no JVD s1s2 no murmurs lungs clear abdomen soft no organomegaly no edema Lab / Micro Data 10/25/24 05:30 10/25/24 05:30 Labs: Laboratory Results - last 24 hr 10/24/24 14:07: WBC 6.3, RBC 2.93 L, Hgb 8.7 L, Hct 27.1 L, MCV 92.5, MCH 29.7, MCHC 32.1, RDW Std Deviation 47.4 H, RDW Coeff of Ben 14.1, Plt Count 135 L, MPV 11.4, Immature Gran % (Auto) 0.600, Neut % (Auto) 78.8 H, Lymph % (Auto) 12.8 L, [place] % (Auto) 4.9, Eos % (Auto) 2.4, Baso % (Auto) 0.5, Absolute Neuts (auto) 5.0, Absolute Lymphs (auto) 0.81 L, Nucleated RBC % 0, Sodium 133, Potassium 3.7, Chloride 90 L, Carbon Dioxide 25.3, Anion Gap 18 H, BUN 29 H, Creatinine 5.97 H, Estim Creat Clear Calc 11.91 L, Est GFR (MDRD) Non-Af 8 L, BUN/Creatinine Ratio 4.9 L, Glucose 316 H, Calcium 8.8, [place] > [address] H 10/24/24 20:58: Troponin T High Sens 234 H* D 10/24/24 22:10: POC Glucose 379 H 10/24/24 22:55: Troponin T Hi Sens 2 Hr 219 H* 10/25/24 01:10: Troponin T Hi Sens 4Hr 230 H* 10/25/24 05:30: WBC 7.1, RBC 2.74 L, Hgb 8.3 L, Hct 25.6 L, MCV 93.4, MCH 30.3, MCHC 32.4, RDW Std Deviation 47.5 H, RDW Coeff of Ben 14.2, Plt Count 143 L, MPV 11.1, Immature Gran % (Auto) 0.600, Neut % (Auto) 73.0 H, Lymph % (Auto) 15.0 L, [place] % (Auto) 7.3, Eos % (Auto) 3.5, Baso % (Auto) 0.6, Absolute Neuts (auto) 5.2, Absolute Lymphs (auto) 1.07, Nucleated RBC % 0, Sodium 133, Potassium 3.7, Chloride 93 L, Carbon Dioxide 25.0, Anion Gap 16 H, BUN 35 H, Creatinine 6.91 H, Estim Creat Clear Calc 9.98 L*, Est GFR (MDRD) Non-Af 6 L, BUN/Creatinine Ratio 5.0 L, Glucose 125 H, Calcium 8.6 10/25/24 06:35: POC Glucose 126 H 10/25/24 11:37: POC Glucose 168 H Imaging Radiology Impression Chest X-Ray 10/24/24 16:00 IMPRESSION: Extensive pulmonary edema. Underlying focal consolidations not excluded. No pleural effusion or pneumothorax. Reading Location: [facility]
--- NOTE | 2024-10-25 14:31 | CASEMGMT ---
GRACE NAIR chart review: Patient was admitted 10/10-10/13/24 for acute exacerbation COPD, PNA, fluid volume overload after missing HD. See assessment from 10/10/24. 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 Patient returned to [facility] ED on 10/24/24 for increased SOB, patient was admitted for hypoxia and fluid overload. GRACE NAIR in to discuss readmission and discharge planning. Patient states she attended follow-up appts. Patient states she as to have interview with [facility] program for aide services tomorrow but cancelled it as she is admitted to hospital. Patient states she was taking medications as prescribed. Patient states she is interested in HHC for therapy and nursing. GRACE NAIR provided HHC list to patient, patient prefers [facility]. Patient denies further needs or concerns and had no further questions. GRACE NAIR updated called and updated CM with [facility]. GRACE NAIR updated DC urban planning professor to send referral to [facility]. CM will continue to follow this patient and plan for a safe discharge.
--- NOTE | 2024-10-25 14:42 | CHAPLAIN ---
Type of Pastoral Visit _x__ Initial Visit ___ Follow-up Visit ___ On-call Visit ___ General Patient Visit ___ Spiritual Assessment ___ Family Conference ___ Bereavement ___ Rapid Response ___ Code Blue ___ Other (describe below) Pastoral Care Referral From _x__ Patient ___ Family ___ Nurse ___ Physician ___ Telephony Engineer ___ Waterproofer Helper ___ Other (describe below) Sacrament/Intervention _x__ Active listening ___ Anointing ___ Gnosticism ___ Bereavement ___ Communion ___ Isi exploration ___ ___ Life review ___ Prayer ___ Reconciliation ___ Sacrament of Sick _x__ Supportive presence ___ Wedding _x__ Other (describe below) Pastoral Comments offer of support to the patient after introductions and initial affiliation of how patient is doing; pt relates that she mostly wants to sleep but that it is hard in the hospital; pt asks for a few specific items of beverage and moving of things to accommodate her time in the hospital; no other needs evident
[2024-10-25] MEDS: Senna/Docusate Sodium 1 Tablet 2 TABLET PO (21:13)
[2024-10-25] MEDS: MELATONIN 10 MG TABLET PO (23:23)
[2024-10-26 03:05] VITALS: BP 118/71; PULSE 63; RESP 16; TEMP 36.4; O2SAT 98
[2024-10-26 05:00] VITALS: BMI 27.8
[2024-10-26 05:56] LABS: Hematocrit 26.4 % (37-47); Hemoglobin 8.5 g/dL (12.0-15.0); Immature Granulocytes Count 0.030 X10^3/uL (0.0-0.0); Mean Corp Hgb Conc 32.2 g/dL (32-36); Mean Corpuscular Volume 93.6 fL (81-99); Mean Platelet Vol. 10.4 fl (6.2-12.0); NRBC Flagged by Analyzer 0 % (0-5); Platelet Count 141 K/mm3 (150-450); RBC Distribution Width CV 14.2 % (11.6-14.6); RBC Distribution Width SD 47.3 fl (35.1-43.9); Red Blood Count 2.82 M/mm3 (4.2-5.4); White Blood Count 6.3 K/mm3 (4.4-11.0)
[2024-10-26 06:20] LABS: Anion Gap 12 (5-15); BUN 26 mg/dL (4-19); BUN/Creat Ratio 5.2 RATIO (10-20); Calcium,Total 9.2 mg/dL (7.6-11.0); Carbon Dioxide 25.5 mmol/L (21.0-32.0); Chloride 94 mmol/L (98-108); Estimated Creatinine Clearance 13.68 ml/min (50-250); Glucose 165 mg/dL (70-99); Potassium 4.3 mmol/L (3.3-5.1)
[2024-10-26 08:13] VITALS: O2SAT 99
[2024-10-26] MEDS: SEVELAMER CARBONATE 800 MG TABLET 1600 MG PO ×2 (08:22→11:55)
[2024-10-26] MEDS: 0.9% Saline Lock 10 ML Syringe IV ×2 (08:24→13:45)
[2024-10-26] MEDS: Senna/Docusate Sodium 1 Tablet 2 TABLET PO (08:24)
[2024-10-26] MEDS: Fluticasone 0.05% 1 SPRAY NASAL.SRY 2 SPRAY NASAL (08:25)
[2024-10-26] MEDS: NIFEdipine 90 MG Tablet PO (08:25)
[2024-10-26] MEDS: Heparin Injection (Vial) 5,000 UNIT/ML VIAL 5000 UNIT SC (08:26)
--- NOTE | 2024-10-26 08:32 | PN.HOSP_ITS ---
Reason for Visit Chief Complaint: SOB Subjective Subjective Breathing better. Objective Data Objective Data Vital Signs: Vital Signs Temp Pulse Resp BP Pulse Ox O2 Del Method O2 Flow Rate 36.4 C L 63 16 118/71 99 Nasal Cannula 2 10/26/24 03:05 10/26/24 03:05 10/26/24 03:05 10/26/24 03:05 10/26/24 08:13 10/26/24 08:13 10/26/24 08:13 Oxygen Flow Rate (L/min) 2 Oxygen Delivery Method Nasal Cannula Weight: 83 kg Body Mass Index (BMI) 27.8 Intake & Output: Intake and Output for Last 24 Hours 10/24/24 10/25/24 10/26/24 23:59 23:59 23:59 Intake Total 120 / 120 Output Total 4620 / 4620 Balance 120 / 120 -4620 / -4620 Lab / Micro Data 10/26/24 05:29 10/26/24 05:29 Labs: Laboratory Results - last 24 hr 10/25/24 11:37: POC Glucose 168 H 10/25/24 16:38: POC Glucose 245 H 10/25/24 21:15: POC Glucose 192 H 10/26/24 05:29: WBC 6.3, RBC 2.82 L, Hgb 8.5 L, Hct 26.4 L, MCV 93.6, MCH 30.1, MCHC 32.2, RDW Std Deviation 47.3 H, RDW Coeff of Ben 14.2, Plt Count 141 L, MPV 10.4, Immature Gran % (Auto) 0.500, Neut % (Auto) 71.4 H, Lymph % (Auto) 15.7 L, [place] % (Auto) 7.8, Eos % (Auto) 3.8, Baso % (Auto) 0.8, Absolute Neuts (auto) 4.5, Absolute Lymphs (auto) 0.99, Nucleated RBC % 0, Sodium 131 L, Potassium 4.3, Chloride 94 L, Carbon Dioxide 25.5, Anion Gap 12, BUN 26 H, Creatinine 5.00 H, Estim Creat Clear Calc 13.68 L, Est GFR (MDRD) Non-Af 9 L, BUN/Creatinine Ratio 5.2 L, Glucose 165 H, Calcium 9.2 10/26/24 06:01: POC Glucose 147 H Radiography Diagnostic Testing: Radiology Impression Echocardiogram 10/24/24 21:43 Interpretation Summary The estimated ejection fraction is 25???30 %. Severe LV systolic dysfunction with global LV hypokinesia Significant change from previous echocardiogram in March 2024 with remarkably reduced LV systolic dysfunction. Ordering Physician: Mone Riggs Performed By: Cande Shrestha RDCS Physical Exam Const alert and no apparent distress Constitutional Narrative: Up ambulating with therapy on room air. Patient dropped down to 90% with ambulation. HEENT head/scalp atraumatic and moist oral mucous membranes Resp normal respiratory effort, no retractions, no use of accessory muscles and clear to auscultation bilaterally Assessment & Plan Assessment/Plan (1) (HFpEF) heart failure with preserved ejection fraction: PLAN: Resolved. Improved with dialysis. Echo from March 18, 2024 showed EF of 65%. Primarily this is due to volume overload from end-stage renal disease on hemodialysis. Patient did receive IV furosemide but ultimately the patient needs dialysis which nephrology is on consultation. Current weight is 84.4 kg. Patient had a weight of 79.8 back on October 13 which may be around his dry weight. PLAN: Plan Chronic medical conditions * Hypertension: Continue with nifedipine * End-stage renal disease: Nephrology on consult as above. Continue with sevelamer. * Mood disorder: Continue duloxetine * GERD: Continue with PPI VTE prophylaxis with subcu heparin
[2024-10-26 09:00] VITALS: BP 131/63; PULSE 86; RESP 16; TEMP 36.7; O2SAT 97
[2024-10-26 10:10] VITALS: O2SAT 90
--- NOTE | 2024-10-26 13:00 | DS.PCM_ITS ---
Providers Date of Admission: 10/24/24 Primary Care Physician: Dr. Aki Archibald MD Consultations 10/24/24 20:31 Consult: Nephrology Routine Consulting Provider: Sofía Hill Reason for Consult: ESRD on HD, fluid overloaded EMERGENT Consult: No MD Notified: Yes Date Notified: 10/25/24 Time Notified: 01:15 Method of Notification: Answering Service Reason For Visit: hypoxia and fluid overload Diagnosis Discharge Diagnosis (1) (HFpEF) heart failure with preserved ejection fraction: Status: Acute Code(s): I50.30 - Unspecified diastolic (congestive) heart failure Plan: Resolved. Improved with dialysis. Echo from March 18, 2024 showed EF of 65%. Primarily this is due to volume overload from end-stage renal disease on hemodialysis. Patient did receive IV furosemide but ultimately the patient needs dialysis which nephrology is on consultation. Current weight is 84.4 kg. Patient had a weight of 79.8 back on October 13 which may be around his dry weight. Plan Chronic medical conditions * Hypertension: Continue with nifedipine * End-stage renal disease: Nephrology on consult as above. Continue with sevelamer. * Mood disorder: Continue duloxetine * GERD: Continue with PPI VTE prophylaxis with subcu heparin Medications at Discharge Home Medications cholecalciferol (vitamin D3) 25 mcg (1,000 unit) capsule (Vitamin D3) 5,000 unit PO DAILY SUPPLEMENT 10/03/13 omeprazole 20 mg capsule,delayed release 20 mg PO DAILY GERD 08/23/14 melatonin 5 mg capsule 10 mg PO QHS sleep 05/27/16 atorvastatin 40 mg tablet 40 mg PO QHS CHOLESTEROL 09/10/22 sevelamer carbonate 800 mg tablet 1,600 mg PO TID food 02/04/23 hydroxyzine HCl 50 mg tablet 50 mg PO Q6H PRN itching 06/29/23 acetaminophen 325 mg capsule (Tylenol) 650 mg PO Q6H PRN pain 07/02/23 ondansetron HCl 4 mg tablet 4 mg PO Q8H PRN PRN nausea and vomiting 07/02/23 dulaglutide 0.75 mg/0.5 mL subcutaneous pen injector (Trulicity) 0.75 mg subcut QWEEK injection 09/06/24 duloxetine 30 mg capsule,delayed release 30 mg PO DAILY mood 09/06/24 nifedipine 90 mg tablet,extended release 90 mg PO DAILY BP 09/06/24 pregabalin 25 mg capsule 50 mg PO QHS neuropathy 09/06/24 albuterol sulfate 90 mcg/actuation aerosol inhaler 2 puff inhalation Q2H PRN shortness of breath or wheezing 10/10/24 calcitriol 0.25 mcg capsule 1.5 mcg PO TUTHSA dialysis 10/10/24 sucroferric oxyhydroxide 500 mg chewable tablet (Velphoro) 500 mg PO TID phosphate inhib 10/10/24 torsemide 100 mg tablet 100 mg PO TUTHSA edema 10/10/24 fluticasone propionate 50 mcg/actuation nasal spray,suspension 2 spray intranasal Q12H allergies 10/24/24 cyclobenzaprine 5 mg tablet 5 mg PO TID PRN muscle spasm #14 tabs 10/26/24 guaifenesin 600 mg tablet, extended release 12 hr (Mucinex) 600 mg PO QHS mucus 10/26/24 Hospital Course Operations None Summary of Care Provided Hospital Course: Patient presents with shortness of breath secondary to CHF. CHF. She presented here and underwent dialysis where they removed 4.3 L. Patient has been on room air has ambulated today dropped down to 90% so therefore will not require oxygen upon discharge. Patient will be discharged stable condition Weight / BMI Weight Weight: 83 kg Body Mass Index (BMI) 27.8 ABG / Lab / Microbiology Data 10/26/24 05:29 10/26/24 05:29 Laboratory: Laboratory Results - last 24 hr 10/25/24 16:38: POC Glucose 245 H 10/25/24 21:15: POC Glucose 192 H 10/26/24 05:29: WBC 6.3, RBC 2.82 L, Hgb 8.5 L, Hct 26.4 L, MCV 93.6, MCH 30.1, MCHC 32.2, RDW Std Deviation 47.3 H, RDW Coeff of Ben 14.2, Plt Count 141 L, MPV 10.4, Immature Gran % (Auto) 0.500, Neut % (Auto) 71.4 H, Lymph % (Auto) 15.7 L, [place] % (Auto) 7.8, Eos % (Auto) 3.8, Baso % (Auto) 0.8, Absolute Neuts (auto) 4.5, Absolute Lymphs (auto) 0.99, Nucleated RBC % 0, Sodium 131 L, Potassium 4.3, Chloride 94 L, Carbon Dioxide 25.5, Anion Gap 12, BUN 26 H, Creatinine 5.00 H, Estim Creat Clear Calc 13.68 L, Est GFR (MDRD) Non-Af 9 L, BUN/Creatinine Ratio 5.2 L, Glucose 165 H, Calcium 9.2 10/26/24 06:01: POC Glucose 147 H 10/26/24 11:53: POC Glucose 239 H Radiography Diagnostic Testing: Radiology Impression Echocardiogram 10/24/24 21:43 Interpretation Summary The estimated ejection fraction is 25???30 %. Severe LV systolic dysfunction with global LV hypokinesia Significant change from previous echocardiogram in March 2024 with remarkably reduced LV systolic dysfunction. Ordering Physician: Mone Riggs Performed By: Cande Shrestha RDCS D/C Instructions DC O2, CPAP, BIPAP Needs Home O2 Discharge instructions: No Meaningful Use Info Meaningful Use Meaningful Use Diagnoses (Choose all that apply): None applicable Discharge Plan Admission Admit Date/Time: 10/24/24 18:54 Primary Reason for Your Visit: CHF exacerbation Attending Provider: Sylvester Ortiz Primary Care Provider: Aki Archibald Consulting Providers: Sofía Hill; Mone Riggs Instructions Additional Instructions / Restrictions: You shortness of breath due to fluid in your lungs which improved after removing greater than 4 L of fluid from your lungs. Continue to monitor weight daily. Follow-up with dialysis per routine. Discharge Orders/Prescriptions Prescriptions: New cyclobenzaprine 5 mg tablet 5 mg PO TID PRN (Reason: muscle spasm) Qty: 14 0RF Continued cholecalciferol (vitamin D3) [Vitamin D3] 1,000 UNIT capsule 5,000 unit PO DAILY omeprazole 20 MG capsule 20 mg PO DAILY melatonin 5 MG capsule 10 mg PO QHS atorvastatin 40 mg tablet 40 mg PO QHS sevelamer carbonate 800 mg tablet 1,600 mg PO TID acetaminophen [Tylenol] 325 mg capsule 650 mg PO Q6H PRN (Reason: pain ) ondansetron HCl 4 mg tablet 4 mg PO Q8H PRN PRN (Reason: nausea and vomiting) hydroxyzine HCl 50 mg tablet 50 mg PO Q6H PRN (Reason: itching) nifedipine 90 mg tablet extended release 90 mg PO DAILY Patient Comments: [NO ORIGINAL SIG] duloxetine 30 mg capsule,delayed release(DR/EC) 30 mg PO DAILY pregabalin 25 mg capsule 50 mg PO QHS Trulicity 0.75 mg/0.5 mL pen injector 0.75 mg subcut QWEEK torsemide 100 mg tablet 100 mg PO TUTHSA Velphoro 500 mg tablet,chewable 500 mg PO TID calcitriol 0.25 mcg capsule 1.5 mcg PO TUTHSA Rx Instructions: 1.5 mcg orally 3XW; albuterol sulfate 90 mcg/actuation HFA aerosol inhaler 2 puff INHALATION Q2H PRN (Reason: shortness of breath or wheezing) fluticasone propionate 50 mcg/actuation spray,suspension 2 spray INTRANASAL Q12H Patient Comments: [NO ORIGINAL SIG] guaifenesin [Mucinex] 600 mg tablet extended release 12hr 600 mg PO QHS Referrals / Follow Up: Aki Archibald MD [Primary Care Provider] - Within 2 Weeks Disposition Disposition (needs filled in before D/C Order can be placed): Home, Self Care Charges/Coding Visit Charges Inpatient E&M: 56477 Disch Hosp
--- NOTE | 2024-10-26 13:28 | CASEMGMT ---
Addendum entered by Elenita Peoples 10/26/24 14:19: [facility] has accepted and SOC will begin 24-48hrs after following provider confirmation. Elenita Peoples DC Planning Asst. Original Note: Discharge Planning HH referral sent to [facility]. Elenita Peoples DC Planning Asst.
[2024-10-26 13:49] VITALS: O2SAT 91; O2SAT 96
--- NOTE | 2024-10-26 14:21 | CASEMGMT ---
Patient has order for discharge. Patient has been accepted by [facility] with start of care in 24-48hrs, RN CM updated discharge plan. RN CM in to discuss needs at discharge. RN CM provided patient with transportation resources. RN CM updated patient regarding [facility] acceptance and planned start of care. Patient denied further needs or concerns. Patient had no further questions. RN CM called Waiver CM at [facility] and left message regarding patient's discharge and call back number.
[2024-10-26 15:00] VITALS: BP 125/65; PULSE 76; RESP 16; TEMP 36.6; O2SAT 97
--- NOTE | 2024-10-26 15:35 | PHA.DC_ITS ---
Pharmacy [facility] Counseling Pharmacy Service has performed discharge medication reconciliation and counseling for this patient. 1. CYCLOBENZAPRINE 5MG PO TID PRN MUSCLE SPASMS The patient's discharge medication list was reviewed for discrepancies and discrepancies were resolved. The patient was counseled on the following discharge medications and changes in medications for homegoing were reviewed. The Reason for Use, instructions for use, and potential side effects were reviewed for all new medications. The patient's questions regarding all of their medications were answered. The patient was able to verbally demonstrate an understanding of their discharge medications. Medications at Discharge Home Medications cholecalciferol (vitamin D3) 25 mcg (1,000 unit) capsule (Vitamin D3) 5,000 unit PO DAILY SUPPLEMENT 10/03/13 omeprazole 20 mg capsule,delayed release 20 mg PO DAILY GERD 08/23/14 melatonin 5 mg capsule 10 mg PO QHS sleep 05/27/16 atorvastatin 40 mg tablet 40 mg PO QHS CHOLESTEROL 09/10/22 sevelamer carbonate 800 mg tablet 1,600 mg PO TID food 02/04/23 hydroxyzine HCl 50 mg tablet 50 mg PO Q6H PRN itching 06/29/23 acetaminophen 325 mg capsule (Tylenol) 650 mg PO Q6H PRN pain 07/02/23 ondansetron HCl 4 mg tablet 4 mg PO Q8H PRN PRN nausea and vomiting 07/02/23 dulaglutide 0.75 mg/0.5 mL subcutaneous pen injector (Trulicity) 0.75 mg subcut QWEEK injection 09/06/24 duloxetine 30 mg capsule,delayed release 30 mg PO DAILY mood 09/06/24 nifedipine 90 mg tablet,extended release 90 mg PO DAILY BP 09/06/24 pregabalin 25 mg capsule 50 mg PO QHS neuropathy 09/06/24 albuterol sulfate 90 mcg/actuation aerosol inhaler 2 puff inhalation Q2H PRN shortness of breath or wheezing 10/10/24 calcitriol 0.25 mcg capsule 1.5 mcg PO TUTHSA dialysis 10/10/24 sucroferric oxyhydroxide 500 mg chewable tablet (Velphoro) 500 mg PO TID phosphate inhib 10/10/24 torsemide 100 mg tablet 100 mg PO TUTHSA edema 10/10/24 fluticasone propionate 50 mcg/actuation nasal spray,suspension 2 spray intranasal Q12H allergies 10/24/24 cyclobenzaprine 5 mg tablet 5 mg PO TID PRN muscle spasm #14 tabs 10/26/24 guaifenesin 600 mg tablet, extended release 12 hr (Mucinex) 600 mg PO QHS mucus 10/26/24
== END 2024-10-26 16:55 | disposition home health service (06) | DRG 291 ==
LOC: ED 17:31 → PCU 18:57
PROVIDERS: Admitting Provider Internal Medicine; Emergency Provider Emergency Medicine; PCP Family Medicine
DX: I13.2 Hypertensive heart and chronic kidney disease with heart failure and with stage 5 chronic kidney disease, or end stage renal disease (principal); I50.31 Acute diastolic (congestive) heart failure; N18.6 End stage renal disease; E11.22 Type 2 diabetes mellitus with diabetic chronic kidney disease; D64.9 Anemia, unspecified; E11.40 Type 2 diabetes mellitus with diabetic neuropathy, unspecified; E78.5 Hyperlipidemia, unspecified; Z99.2 Dependence on renal dialysis; J44.9 Chronic obstructive pulmonary disease, unspecified; F31.9 Bipolar disorder, unspecified; K21.9 Gastro-esophageal reflux disease without esophagitis; F41.9 Anxiety disorder, unspecified; M79.7 Fibromyalgia; G47.33 Obstructive sleep apnea (adult) (pediatric); R09.02 Hypoxemia; Z79.02 Long term (current) use of antithrombotics/antiplatelets; Z79.85 Long-term (current) use of injectable non-insulin antidiabetic drugs; Z87.891 Personal history of nicotine dependence; Z98.84 Bariatric surgery status; Z90.49 Acquired absence of other specified parts of digestive tract; Z79.899 Other long term (current) drug therapy; Z91.199 Patient's noncompliance with other medical treatment and regimen due to unspecified reason
CPT/HCPCS: 36415; 71046; 80048; 82962; 83880; 84484; 85025; 90937; 93005; 93306; 97161; 97166; 97802; 99285; A4216; G0257; J1938; J2405

== ENCOUNTER 2024-10-28 18:56 | Emergency (ER) | payer MEDICARE, MEDICAID, SELFPAY ==
[2024-10-28 18:57] VITALS: BP 148/74; PULSE 103; RESP 16; TEMP 36.9; O2SAT 99; BMI 26.6
--- NOTE | 2024-10-28 19:33 | RAD_ITS ---
PROCEDURE: CHEST 1 VIEW (PORTABLE) 10/28/2024 REASON FOR EXAM: COUGH TECHNIQUE: Frontal view of the chest. COMPARISON: 10/24/2024 FINDINGS: LUNGS AND PLEURA: Mild interval improvement of interstitial and airspace opacities bilaterally. No pleural effusion or pneumothorax. HEART AND MEDIASTINUM: The cardiac silhouette is mildly enlarged. The mediastinal contour is normal. AORTA: Mildly calcified aortic arch. BONES: No acute osseous abnormality. RAD/Chest 1 View (Portable) IMPRESSION: Mild improvement of bilateral opacities, likely related to pulmonary edema or i nfectious process. Reading Location: [id number]
[2024-10-28 19:34] LABS: Hematocrit 29.0 % (37-47); Hemoglobin 9.2 g/dL (12.0-15.0); Immature Granulocytes Count 0.060 X10^3/uL (0.0-0.0); Mean Corp Hgb Conc 31.7 g/dL (32-36); Mean Corpuscular Volume 95.7 fL (81-99); Mean Platelet Vol. 10.1 fl (6.2-12.0); NRBC Flagged by Analyzer 0 % (0-5); Platelet Count 158 K/mm3 (150-450); RBC Distribution Width CV 15.6 % (11.6-14.6); RBC Distribution Width SD 51.2 fl (35.1-43.9); Red Blood Count 3.03 M/mm3 (4.2-5.4); White Blood Count 9.1 K/mm3 (4.4-11.0)
[2024-10-28 20:18] LABS: Anion Gap 15 (5-15); BUN 33 mg/dL (4-19); BUN/Creat Ratio 6.7 RATIO (10-20); Calcium,Total 9.4 mg/dL (7.6-11.0); Carbon Dioxide 24.5 mmol/L (21.0-32.0); Chloride 92 mmol/L (98-108); Estimated Creatinine Clearance 13.49 ml/min (50-250); Glucose 397 mg/dL (70-99); Potassium 3.8 mmol/L (3.3-5.1)
--- NOTE | 2024-10-28 20:44 | EKG12_ITS ---
Test Reason : DYSRHYTHMIA Blood Pressure : */* mmHG Vent. Rate : 97 BPM Atrial Rate : 97 BPM P-R Int : 148 ms QRS Dur : 84 ms QT Int : 334 ms P-R-T Axes : 50 80 134 degrees QTcB Int : 424 ms Normal sinus rhythm Possible Left atrial enlargement Low voltage QRS Septal infarct , age undetermined ST & T wave abnormality, consider lateral ischemia Abnormal ECG Confirmed by Kun Plasencia ([id number]), book editor TULIO FANG ([id number]) on 11/01/2024 10:57:17 AM Referred By: VEENA Confirmed By: Kun Plasencia
--- NOTE | 2024-10-28 20:45 | EDS_ITS ---
HPI History of Present Illness Chief Complaint: Cough Informant: patient Onset/Context/Timing Onset: Today Context: gradual Timing: Intermittent Quality: Positive for Wheezing Current Severity: Mild Maximum Severity: Mild Worsened by: Coughing Relieved by: Nothing Associated Symptoms cough; Negative for fever or clear sputum Chest Pain: Positive for Intermittent (With coughing.) and Sharp; Negative for Pleuritic, Pressure or Tightness Narrative Narrative: 59-year-old female history of COPD, asthma, prior DVT on aspirin only, bipolar, CHF and anemia history of chronic kidney disease dialysis gets dialyzed Thursday was just dialyzed yesterday. Recently admitted to the hospital discharged on Thursday for dyspnea that she states was secondary to CHF or volume overload. States she has similar symptoms today. She is not on oxygen at home because she is not qualified. She denies any fever. States that the nonproductive cough. She has chest pain primarily with coughing. PE Risk Factors: Positive for Prior DVT or PE and Recent immobilization; Negative for Cancer, OCP + Smoking + > 35, Recent surgery or Recent travel Prior similar symptoms: Yes Recent Illness/Hospitalization: Yes PFSH PFSH Medical History Anxiety Depression CPAP (continuous positive airway pressure) dependence COPD (chronic obstructive pulmonary disease) Anemia Hyperkalemia Osteoarthritis of right knee Fracture of fibula, right, closed Pathological fracture, right tibia, initial encounter for fracture Diabetes Dialysis patient Kidney disease GERD (gastroesophageal reflux disease) Sleep apnea Former smoker Asthma DVT (deep venous thrombosis) ESRD (end stage renal disease) on dialysis Fracture of right lower extremity Inability to walk Diabetes mellitus, type 2 Obesity Chronic anemia COPD with asthma Bipolar disorder Anxiety and depression HLD (hyperlipidemia) HTN (hypertension) Former tobacco use Neuropathy Fibromyalgia Kidney disease, chronic, stage IV (GFR 15-29 ml/min) History of tobacco use History of diabetes mellitus, type II History of COPD History of bipolar disorder Benign essential hypertension History of asthma Home Medications ?Medication ?Instructions ?Recorded ?Last Taken ?Type cholecalciferol (vitamin D3) 25 5,000 unit PO DAILY CORNELL PPLEMENT 10/03/13 10/23/24 21:00 History mcg (1,000 unit) capsule (Vitamin 5,00 0 unit D3) omeprazole 20 mg capsule,delayed 20 mg PO DAILY GERD 0 08/23/14 10/23/24 21:00 History release 20 mg melatonin 5 mg capsule 10 mg PO QHS sleep 05/27/16 10/23/24 21:00 History 10 mg atorvastatin 40 mg tablet 40 mg PO QHS CHOLESTEROL 02/2110/23/24 21:00 History 40 mg sevelamer carbonate 800 mg tablet 1,600 mg PO TID food 02/04/23 10/10/24 History hydroxyzine HCl 50 mg tablet 50 mg PO Q6H PRN itching 06/29/23 10/23/24 21:00 History 50 mg acetaminophen 325 mg capsule 650 mg PO Q6H PRN pain Unknown History (Tylenol) ondansetron HCl 4 mg tablet 4 mg PO Q8H PRN PRN nausea and 07/02/23 10/10/24 History vomiting dulaglutide 0.75 mg/0.5 mL 0.75 mg subcut QWEEK inject ion 09/06/24 10/19/24 09:00 History subcutaneous pen injector 0.75 mg (Trulicity) duloxetine 30 mg capsule,delayed 30 mg PO DAILY mood 0 09/06/24 10/23/24 21:00 History release 30 mg nifedipine 90 mg tablet,extended 90 mg PO DAILY BP 10/2410/23/24 21:00 History release 90 mg pregabalin 25 mg capsule 50 mg PO QHS neuropathy 0710/2410/23/24 21:00 History albuterol sulfate 90 mcg/actuation 2 puff inhalation Q 2H PRN 10/10/24 10/24/24 12:30 History aerosol inhaler shortness of breath or wheez ing 2 puff calcitriol 0.25 mcg capsule 1.5 mcg PO TUTHSA dialysis 10/10/24 10/08/24 History sucroferric oxyhydroxide 500 mg 500 mg PO TID phosphat e inhib 10/10/24 10/10/24 History chewable tablet (Velphoro) torsemide 100 mg tablet 100 mg PO TUTHSA edema 10/1010/22/24 21:00 History 100 mg fluticasone propionate 50 2 spray intranasal Q12H andie rgies 10/24/24 Unknown History mcg/actuation nasal spray,suspension cyclobenzaprine 5 mg tablet 5 mg PO TID PRN muscle spa sm #14 10/26/24 Unknown Rx tabs guaifenesin 600 mg tablet, 600 mg PO QHS mucus 5 Unknown History extended release 12 hr (Mucinex) Allergy/AdvReac Type Severity Reaction Status Date / Time renetta carin Allergy Unknown UNKNOWN Verified 10/28/24 18:57 mold Allergy Unknown unknown Verified 10/28/24 18:57 lisinopril Allergy unknown Verified 10/28/24 18:57 Penicillins Allergy Anaphylaxis Verified 10/28/24 18:57 tetracycline (Tetracycline) Allergy Anaphylaxis Verified 10/28/24 18:57 codeine AdvReac Abd Verified 10/28/24 18:57 cramps/diarrhea diphenhydramine HCl (From AdvReac Upset Verified 10/28/24 18:57 Benadryl) Stomach hydrocodone bitartrate (From AdvReac Abd Verified 10/28/24 18:57 Vicodin) cramps/diarrhea NSAIDS (Non-Steroidal AdvReac Unknown Verified 10/28/24 18:57 Anti-Inflamma Family History Mother Heart disease Hypertension Diabetes Kidney disease Father Diabetes Surgical History H/O cataract extraction H/O vitrectomy History of appendectomy History of cholecystectomy H/O vascular surgery H/O gastric bypass S/P cholecystectomy S/P appendectomy Social History household members: none Smoking Status: Former smoker how long ago did patient quit smoking: Quit age 24. alcohol intake: never substance use type: does not use ROS ROS ED ROS Narrative Cough. Shortness of breath. Intermittent wheezing. No leg pain or swelling. Chest pain with coughing. Constitutional Constitutional ED: Denies chills or fever(s) Eyes Eyes: Denies blurry vision ENT ENT ED: Denies ear pain Cardiovascular Cardiovascular: Reports chest pain Respiratory/Chest Respiratory/Chest: Reports cough and dyspnea; Denies sputum Gastrointestinal Gastrointestinal: Denies abdominal pain Genitourinary Genitourinary ED: Denies dysuria or hematuria Musculoskeletal Musculoskeletal: Denies arthralgias Integumentary Denies abscess Neurologic Neurologic: Denies headache(s) Psychiatric Psychiatric: Denies anxiety Endocrine Endocrinology: Denies cold intolerance Hematologic/Lymphatic Hematologic/Lymphatic: Denies easy bleeding, easy bruising or lymphadenopathy Allergic/Immunologic Allergic/Immunologic ED: Denies mouth swelling, tongue swelling, urticaria or other EXAM Physical Exam Narrative Exam Narrative: Well-appearing middle-aged female vital signs stable afebrile. Pulse ox is 99% on room air no hypoxia she is in no distress she is sitting upright in bed. She does not have labored breathing. She is not actively wheezing. H EENT exam pupils round react light. Mytrex members. Neck nontender no JVD. Lungs clear to auscultation bilaterally. Currently. Heart regular rhythm rate about 100 no murmur. Chest wall ribs nontender. Abdomen soft nontender. Moving all 4 extremities. Calves are nontender without edema or cords. Normal strength and conditioning coach strength. Neurologically she is awake alert. Answering questions following commands. Const Vital Signs: 10/28/24 18:57 10/28/24 21:17 10/28/24 22:19 Temperature 98.5 F Temperature Source Oral Pulse Rate 103 H 102 H Respiratory Rate 16 20 H Respiratory Pattern Normal Blood Pressure 148/74 H Blood Pressure Mean 98 Pulse Ox 99 Oxygen Delivery Method Room Air Room Air 10/28/24 22:19 10/28/24 23:19 Temperature Temperature Source Pulse Rate 82 Respiratory Rate 22 H Respiratory Pattern Blood Pressure 144/67 H Blood Pressure Mean 92 Pulse Ox 95 Oxygen Delivery Method Room Air Positive well nourished and well developed; Negative for cachectic, contractures or unkempt General Appearance ED: well developed and NAD; Negative for unkempt, cachectic, contractures or pallor Nutritional Appearance: Negative for cachectic HEENT Reports moist mucous membranes atraumatic; Negative for trauma or tenderness Eyes PERRL and EOMs intact bilaterally Neck no lymphadenopathy, supple, no meningeal signs and no JVD Resp normal respiratory effort and clear to auscultation bilaterally Cardio regular rate, regular rhythm, S1 normal heart sound, S2 normal heart sound and no murmurs GI non-tender, non-distended and no masses Auscultation: normoactive bowel sounds Palpation: soft; Negative for tender, guarding or rebound tenderness present Back/Spine no CVA tenderness and normal to inspection Extremity normal to inspection General Extremety ED: Negative for edema or tenderness General Extremity: Negative for edema Neuro oriented x3 and CN's II-XII intact bilaterally Sensorium / Orientation: alert, oriented to person, oriented to place and oriented to time Speech: speech normal Motor Exam: strength 5/5 throughout Psych mental status grossly normal Appearance: Negative for unkempt Thought Process: normal thought process Skin no wounds and skin turgor normal General Skin Exam: Negative for jaundice or pallor Lesions: no lesions Rashes: no rashes MDM MDM MDM Narrative Medical decision making narrative: 59-year-old female history of asthma, COPD, end-stage renal disease gets dialysis with dialyzed yesterday. Recent hospitalization for CHF. Complaining shortness of breath. Exam is benign. She will be given DuoNeb and albuterol aerosols currently she is not wheezing however. And undergo a cardiac and respiratory workup. Repeat exam at 12:23 AM patient doing well. We went over her test results. She is comfortable and prefers to be discharged home. She was just recently hospitalized. Her oxygen saturations are in the high to mid 90s on room air. She is scheduled to get dialysis later this morning it is now Thursday after midnight. And she will follow-up with her primary care physician at the [facility] next week. She has appointment also to be seen by one of the molecular biology professor. History & Record Review Discussion w/independent historian: Patient Additional record(s) reviewed:: Prior inpatient record, Prior outpatient record, Prior ED visit and Prior labs Lab Data Attestation: I reviewed the patient's lab results. Lab results narrative: CBC shows white count 9. H&H 9.2 and 29 which is her baseline anemia. Platelets 158. Electrolytes show sodium 131. Gap 15. BUN and creatinine of 33 and 4.97 again consistent with her history of end-stage renal disease on dialysis. Initial troponin 256. Her troponins are always elevated. Second troponin is 268. BNP is elevated at 70,000. Most recent echo showed severe global hypokinesis with an EF of around 25% that would be consistent with the BNP and the elevated troponins. Also with a history of end-stage renal disease in need of dialysis tomorrow. Labs: Laboratory Results - last 24 hr 10/28/24 10/28/24 10/28/24 19:28 19:32 22:46 WBC 9.1 RBC 3.03 L Hgb 9.2 L Hct 29.0 L MCV 95.7 MCH 30.4 MCHC 31.7 L RDW Std Deviation 51.2 H RDW Coeff of Ben 15.6 H Plt Count 158 MPV 10.1 Immature Gran % (Auto) 0.700 Neut % (Auto) 79.5 H Lymph % (Auto) 13.5 L [place] % (Auto) 4.9 Eos % (Auto) 1.1 Baso % (Auto) 0.3 Absolute Neuts (auto) 7.3 Absolute Lymphs (auto) 1.23 Nucleated RBC % 0 Sodium 131 L Potassium 3.8 Chloride 92 L Carbon Dioxide 24.5 Anion Gap 15 BUN 33 H Creatinine 4.97 H Estim Creat Clear Calc 13.49 L Est GFR (MDRD) Non-Af 9 L BUN/Creatinine Ratio 6.7 L Glucose 397 H Calcium 9.4 Troponin T High Sens 256 H* D Troponin T Hi Sens 2 Hr 268 H* NT pro BNP II > [address] H Radiography Chest X-Ray - ED: 1 View, Read by ED Physician, Read by Radiologist, Heart, Mediastinum, Bony Structures, Chronic Changes and CHF Diagnostic Testing: Clinical Impression(s) from Imaging Studies Chest X-Ray 10/28/24 19:33 IMPRESSION: Mild improvement of bilateral opacities, likely related to pulmonary edema or infectious process. Reading Location: [facility] Chest x-ray, portable, single view interpreted by myself and radiologist. Shows normal cardiac silhouette mediastinum. Vascular congestion consistent with pulmonary edema. No pneumonia. Rhythm Strip Rhythm Strip: Sinus Rhythm Rate: 97 Ectopy: None EKG Initial EKG: Attestation: I personally reviewed and interpreted this EKG as follows: Interpretation: Sinus Rhythm and No Acute Injury Pattern Comments: Normal sinus rhythm rate 97 no acute signs of NM or ischemia. Follow-up EKG: Attestation: I personally reviewed and interpreted this EKG as follows: Interpretation: Sinus Rhythm and No Acute Injury Pattern Comments: Normal sinus rhythm rate of 96 no acute signs of NM or ischemia or change from the first. Discharge Plan Triage Chief Complaint: Cough ED Provider: Johnathon Robertson Dx/Rx/DC Orders Clinical Impression: Acute dyspnea, Chronic kidney disease with end stage renal failure on dialysis, CHF (congestive heart failure), Cardiomyopathy, History of asthma, Viral URI Instructions: ED Heart Failure, Congestive (CHF), ED URI, Viral, No Abx (Adult) Prescriptions: No Action cholecalciferol (vitamin D3) [Vitamin D3] 1,000 UNIT capsule 5,000 unit PO DAILY omeprazole 20 MG capsule 20 mg PO DAILY melatonin 5 MG capsule 10 mg PO QHS atorvastatin 40 mg tablet 40 mg PO QHS sevelamer carbonate 800 mg tablet 1,600 mg PO TID acetaminophen [Tylenol] 325 mg capsule 650 mg PO Q6H PRN (Reason: pain ) ondansetron HCl 4 mg tablet 4 mg PO Q8H PRN PRN (Reason: nausea and vomiting) hydroxyzine HCl 50 mg tablet 50 mg PO Q6H PRN (Reason: itching) nifedipine 90 mg tablet extended release 90 mg PO DAILY Patient Comments: [NO ORIGINAL SIG] duloxetine 30 mg capsule,delayed release(DR/EC) 30 mg PO DAILY pregabalin 25 mg capsule 50 mg PO QHS Trulicity 0.75 mg/0.5 mL pen injector 0.75 mg subcut QWEEK torsemide 100 mg tablet 100 mg PO TUTHSA Velphoro 500 mg tablet,chewable 500 mg PO TID calcitriol 0.25 mcg capsule 1.5 mcg PO TUTHSA Rx Instructions: 1.5 mcg orally 3XW; albuterol sulfate 90 mcg/actuation HFA aerosol inhaler 2 puff INHALATION Q2H PRN (Reason: shortness of breath or wheezing) fluticasone propionate 50 mcg/actuation spray,suspension 2 spray INTRANASAL Q12H Patient Comments: [NO ORIGINAL SIG] guaifenesin [Mucinex] 600 mg tablet extended release 12hr 600 mg PO QHS cyclobenzaprine 5 mg tablet 5 mg PO TID PRN (Reason: muscle spasm) Qty: 14 0RF Primary Care Provider: Aki Archibald Referrals: Aki Archibald MD [Primary Care Provider] - As soon as possible Activity Restrictions/Additional Instructions: Very very important get your dialysis later today. Follow-up with your [facility] doctors this coming week. Print Language: Serbian Disposition Disposition: Home, Self Care
[2024-10-28 21:17] VITALS: PULSE 102; RESP 20
[2024-10-28] MEDS: Albuterol 2.5 MG/3 ML VIAL.NEB. INHALATION (21:17)
--- OUTSIDE RECORDS SUMMARY | 2024-10-28 21:25 | XMS RPT_ITS | CCD ---
Author Organization [facility] Care Team Providers Care Caul Puller Name Role Phone GRACIELA MITCHELL Unavailable Unavailable PHYSICIAN, NOT RECORDED Unavailable Unavaila ble KAYLIN ESTEVEZNETH Unavailable Unavailable ZENAIDA, BREANA Unavailable Unavailable KAYLIN ESTEVEZNETH Unavailable Unavailable BREANA ESTEVEZ Unavailable Unavailable Ignacio Cheatham Unavailable Unavailable SELF, SELF Referring Unavailable Ignacio Cheatham MD Primary Care Provider [facility], Keti Unavailable Ignacio Cheatham MD Primary Care Provider [facility], Keti Unavailable Ignacio Cheatham MD Primary Care Provider [facility], Keti Unavailable Dillon RN, Kaylin (Rn) Unavailable Unavailable Ignacio Cheatham MD Primary Care Provider [facility], Keti Unavailable Dillon RN, Kaylin (Rn) Unavailable Unavailable Kaylin Carranza RN Unavailable [facility]available [facility] Unavailable Zuleika Cheng RN, Chrissy Unavailable PROVIDER, UNKNOWN Attending Unavailable PROVIDER, UNKNOWN Admitting Unavailable IGNACIO CHEATHAM Primary Care Unavailable Dr. Ignacio Cheatham Primary Care Provider Dr. Minh Arroyo Emergency Provider Dr. Lizzy Bragg Attending Provider Dr. Lizzy Bragg Admit Provider Dr. Lizzy Bragg Other Provider Dr. Sylvester Ortiz Attending Provider Dr. Sylvester Ortiz Other Provider [facility], Keti Unavailable Dillon RN, Kaylin Unavailable Unavailable Zuleika Cheng RN, Chrissy Unavailable [phone] Dr. Ignacio Cheatham Primary Care Provider Dr. Sylvester John Attending Provider Dr. Audra Ahuja Referring Provider Dr. Raul Larkin Attending Provider Dr. Yariel Wilks Emergency Provider Dr. Mone Riggs Admit Provider Dr. Mone Riggs Attending Provider Dr. Mone Riggs Other Provider Dr. Quentin Kim Referring Provider Dr. Deshawn Tucker Other Provider Dr. Sofía Hill Other Provider Dr. Branden Banks Attending Provider Dr. Branden Banks Other Provider Dr. Emerson Saldaña Attending Provider Dr. Branden Banks Referring Provider Dr. Carolina Caba Attending Provider Dr. Carolina Caba Other Provider Dr. Emerson Saldaña Attending Provider Dr. Mone Riggs Referring Provider Dr. Emerson Saldaña Referring Provider Dr. Ignacio Cheatham Primary Care Provider Juliano Abdullahi Primary Care Provider [phone] Ignacio Cheatham MD Primary Care Provider [facility], Keti Unavailable Deondre PLISSE MACHINE OPERATOR HELPER.SALOONKEEPER, Tresa Unavailable Suppan PLISSE MACHINE OPERATOR HELPER.SALOONKEEPER, Sury A Unavailable Suppan PLISSE MACHINE OPERATOR HELPER.SALOONKEEPER, Sury A Unavailable Suppan PLISSE MACHINE OPERATOR HELPER.SALOONKEEPER, Sury A Unavailable [phone] DORENE MURILLO Attending Unavailable IGNACIO CHEATHAM Primary Care Unavailable DORENE MURILLO Attending Unavailable LINDEN, IGNACIO Chris Primary Care Unavailable DORENE MURILLO Attending Unavailable LINDEN, IGNACIO Chris Primary Care Unavailable LINDEN, IGNACIO Chris Primary Care Unavailable ELEUTERIO WILLIAMSON Attending Unavailable ELEUTERIO WILLIAMSON Admitting Unavailable Dr. Ignacio Cheatham MD Primary Care Provider Haagen PRODUCT TECHNOLOGY SCIENTIST-C, Tresa Attending Provider Haagen PRODUCT TECHNOLOGY SCIENTIST-C, Tresa Referring Provider Marcelo BERGMAN, Dr. Diego Emergency Provider [phone] Dr. Johnathon Robertson MD Attending Provider [phone] Jim Shah DO Emergency Provider Dr. Son Hallman DO Admit Provider Unavail able Dr. Son Hallman DO Attending Provider Unav deniceable Dr. Ignacio Cheatham MD Primary Care Provider Haagen PRODUCT TECHNOLOGY SCIENTIST-C, Tresa Attending Provider Haagen PRODUCT TECHNOLOGY SCIENTIST-C, Tresa Referring Provider Dr. Son Hallman DO Other Provider Unavail able Sergio BERGMAN, Dr. Gore Other Provider Dr. Hipolito Shepard MD Attending Provider Devyn BERGMAN, Dr. Hipolito Chatman Other Provider Suppan PLISSE MACHINE OPERATOR HELPER.SALOONKEEPER, Sury A Unavailable Suppan PLISSE MACHINE OPERATOR HELPER.SALOONKEEPER, Sury A Unavailable [phone] Fred Wolfe RN Unavailable Dr. Sylvester Winston DO Emergency Provider Oneil BERGMAN, Dr. Shore Admit Provider Oneil BERGMAN, Dr. Shore Attending Provider Dr. Mone Riggs MD Other Provider Dr. Sylvester Ortiz DO Attending Provider Dr. Sylvester Ortiz DO Other Provider Dr. Romie Dalton MD Attending Provider LINDEN, IGNACIO J Referring Unavailable LINDEN, IGNACIO J Primary Care Unavailable LINDEN, IGNACIO J Attending Unavailable LINDEN, IGNACIO J Primary Care Unavailable LINDEN, IGNACIO J Primary Care Unavailable HAAGEN, TRESA Attending Unavailable LINDEN, IGNACIO J Primary Care Unavailable HAAGEN, TRESA Referring Unavailable LINDEN, IGNACIO J Primary Care Unavailable ALONDRA CHUNG Attending Unavailable SHA MYRICK Referring Unavailable LINDEN, IGNACIO J Primary Care Unavailable SAIRA JACKSON Attending Unavailable HAAGEN, TRESA Referring Unavailable LINDEN, IGNACIO J Primary Care Unavailable TRINIDAD FRAZIER Attending Unavailable HAAGEN, TRESA Referring Unavailable LINDEN, IGNACIO J Primary Care Unavailable GEGE MCCRARY Attending Unavailable LINDEN, IGNACIO J Primary Care Unavailable SAIRA JACKSON Referring Unavailable LINDEN, IGNACIO J Primary Care Unavailable LINDEN, IGNACIO J Primary Care Unavailable HEVER CHEEMA Attending Unavailable LIZ FERREIRA Attending Unavailable HAAGEN, TRESA Referring Unavailable LINDEN, IGNACIO J Primary Care Unavailable SURY GONZALEZ Attending Unavailable LINDEN, IGNACIO J Primary Care Unavailable TRESA MARCUM Attending Unavailable LINDEN, IGNACIO J Primary Care Unavailable LINDEN, IGNACIO J Attending Unavailable LINDEN, IGNACIO J Primary Care Unavailable Hipolito Shepard Attending Unavailable Sergio, Ygprakas Consulting Unavailable Son Hallman Admitting Unavailable [place], Ignacio Primary Care Unavailable Son Hallman Consulting Unavailable Hipolito Shepard Consulting Unavailable Mone Riggs Attending Unavailable Mone Riggs Consulting Unavailable Mone Riggs Admitting Unavailable [place], Ignacio Primary Care Unavailable Romie Dalton Attending Unavailable [place], Ignacio Primary Care Unavailable Emerson Saldaña Attending Unavailable [place], Ignacio Primary Care Unavailable Sylvester Ortiz Attending Unavailable Sergio, Kandikamaia Consulting Unavailable Sylvester Ortiz Consulting Unavailable Hipolito Shepard Admitting Unavailable [place], Ignacio Primary Care Unavailable Cristal Blanchard Attending Unavailable Hipolito Shepard Consulting Unavailable Cristal Blanchard Consulting Unavailable Branden Banks Attending Unavailable Branden Banks Consulting Unavailable Hipolito Shepard Admitting Unavailable Hipolito Shepard Consulting Unavailable Branden Banks Attending Unavailable [facility] Care Unavailable Cristal Blanchard Consulting Unavailable Sylvester Winston Attending Unavailable [facility] Unavailable Deondre PRODUCT TECHNOLOGY SCIENTIST, Tresa Referring Unavailable Deondre PRODUCT TECHNOLOGY SCIENTIST, Tresa Attending Unavailable [facility] Care Unavailable Sylvester Ortiz Attending Unavailable Sergio, Jayaprakas Consulting Unavailable Mone Riggs Admitting Unavailable [facility] Care Unavailable Mone Riggs Consulting Unavailable Hipolito Shepard Attending Unavailable Sergio, Sofía Consulting Unavailable Son Hallman Admitting Unavailable [facility] Unavailable Son Hallman Consulting Unavailable Johnathon Robertson Attending Unavailable [facility] Unavailable Minh Arroyo Attending Unavailable [facility] Unavailable Dave Sanz Referring Unavailable Dave Sanz Attending Unavailable [facility] Unavailable Son Hallman Attending Unavailable Allergies Allergy Classification Reported Allergen(s) Allergy Type Date of Onset Reaction(s) Facility Acetaminophen / HYDROcodone (1 source) Acetaminophen / HYDROcodone Drug Allergy 09-23-19 08 Vomiting [facility] Angiotensin Converting Enzyme (HANNAH) Inhibitors (1 source) Lisinopril Drug Allergy 05-27-19 09 Contraindicati on-Medical Surgical [facility] Work Phone: Barium Sulfate (1 source) Barium Sulfate Drug Allergy 05-01-19 24 Unknown [facility] CHAMOMILE ROY (2 sources) CHAMOMILE ROY Drug Allergy 02-03-20 09 Anaphylaxis [facility] diphenhydrAMINE (1 source) diphenhydrAMINE Drug Allergy 09-23-19 08 Rash, Itching [facility] Mold Extract (1 source) Mold Extract Drug Allergy 09-23-19 08 [facility] Opioid Agonists (1 source) Codeine Drug Allergy 09-23-19 08 Vomiting, Other: See Comments [facility] Penicillins (antibiotic) (1 source) Penicillins Drug Allergy 09-23-19 08 Anaphylaxis [facility] Work Phone: Bhutanese balsam (1 source) Bhutanese balsam Drug Allergy 09-11-19 23 Unknown [facility] Tetracyclines (antibiotic) (1 source) Tetracycline Drug Allergy 09-23-19 08 Rash [facility] vanilla kinney allergenic extract (1 source) vanilla kinney allergenic extract Drug Allergy 09-11-19 23 Unknown [facility] (20 sources) acetaminophen / HYDROcodone; Translations: [HYDROCODONE-ACETA MINOPHEN] Drug Allergy 09-23-19 08 Vomiting [facility] Repository (20 sources) codeine; Translations: [CODEINE] Drug Allergy 09-23-19 08 Vomiting, Other: See Comments [facility] (20 sources) diphenhydrAMINE; Translations: [DIPHENHYDRAMINE HCL] Drug Allergy 09-23-19 08 Rash, Itching [facility] Repository (20 sources) flavor,vanilla; Translations: [VANILLA EXTRACT] Drug Allergy 09-23-19 08 [facility] (20 sources) mold extract; Translations: [MOLD] Drug Allergy 09-23-19 08 unknown [facility] Repository (20 sources) NSAIDs; Translations: [NSAIDS (NON-STEROIDAL ANTI-INFLAMMATORY DRUG)] Propensity to adverse reactions (disorder) 09-14-19 13 Other: See Comments [facility] (20 sources) Penicillins; Translations: [PENICILLINS] Propensity to adverse reactions (disorder) 09-23-19 08 Anaphylaxis [facility] (20 sources) Seasonal allergy; Translations: [SEASONAL ALLERGIES] Propensity to adverse reactions (disorder) 12-15-19 09 Other: See Comments [facility] Repository (20 sources) tetracycline; Translations: [TETRACYCLINE] Drug Allergy 09-23-19 08 Rash [facility] Repository (20 sources) BALSAM 115; Translations: [BALSAM 115] Propensity to adverse reactions (disorder) 09-23-19 08 [facility] Repository (20 sources) CHAMOMILE; Translations: [CHAMOMILE] Propensity to adverse reactions (disorder) 02-03-20 09 [facility] Repository (2 sources) OTHER; Translations: [OTHER] Propensity to adverse reactions (disorder) 09-23-19 08 [facility] Repository (20 sources) Lisinopril; Translations: [LISINOPRIL] Drug Allergy 05-27-19 09 Contraindicati on-Medical Surgical [facility] Work Phone: Comment on above: x (20 sources) spider [Other] Propensity to adverse reactions 09-23-19 08 [facility] Work Phone: (20 sources) HYDROcodone; Translations: [hydrocodone bitartrate] Drug Allergy 07-30-19 22 Abd cramps/diarrhe a [facility] (20 sources) NSAIDS (Non-Steroidal Anti-Inflamma; Translations: [NSAIDS (Non-Steroidal Anti-Inflamma] Propensity to adverse reactions 07-30-19 22 Unknown [facility] (20 sources) Bhutanese balsam; Translations: [BALSAM JUAN] Drug Allergy 09-11-19 23 Unknown [facility] (20 sources) vanilla extract flavor; Translations: [VANILLA EXTRACT FLAVOR] Allergy to substance 09-11-19 23 Unknown [facility] (20 sources) Barium Sulfate; Translations: [BARIUM SULFATE] Drug Allergy 05-01-19 24 Unknown [facility] (13 sources) CHAMOMILE ROY Drug Allergy 05-01-19 24 Anaphylaxis [facility] (20 sources) Benadryl Allergy Decongestant; Translations: [BENADRYL ALLERGY DECONGESTANT] Drug Allergy 05-01-19 24 Itching [facility] (1 source) Lisinopril Drug Allergy 10-25-19 25 [facility] Repository (1 source) Bhutanese balsam Drug Allergy 10-25-19 25 [facility] Repository Medications Current Medications Medication Drug [...] 04, 2023 1:02pm take 2 tablets by mo uth every twelve hours acetaminophen (TYLENOL) 500 mg [...] mg by rosenda th every 12 hours. Administered Medications Medication Order MAR Action Action Date Dose Rate Site tuberculin skin test, unspecified formulation Given 06/18/2023 (1 source) Administered Medications Medication Order MAR Action Action Date Dose Rate Site tuberculin skin test, unspecified formulation Given 06/18/2023 [id number] 200 actuat albuterol 0.09 mg/actuat metered dose inhaler (20 sources) beta2-Adrenergic Agonist Start: 5 End: 6 take 2 puff(s) by inhalation every two hours as needed for wheezing albuterol HFA (PROVENTIL HFA, VENTOLIN HFA) 90 mcg/actuation inhaler Indications: Chronic obstructive pulmonary disease with acute lower respiratory infection (HCC) Inhale 2 puffs as instructed every 2 hours as needed for wheezing/shortness of breath (night time). 2 each 5 10/20/2024 04/18/2025 Active Start: 10-10-2024 Albuterol Sulf ate 90 mcg/actuation HFA aerosol inhaler Active 2 NMA INHALATION Q2H as needed for shortness of breath or wheezing October 10, 2024 12:00am Start: 10-10-2024 Albuterol Sulf ate 90 mcg/actuation HFA aerosol inhaler Active 2 NMA INHALATION EVERY 4 HOURS NEEDED as needed for shortness of breath or wheezing October 10, 2024 12:00am Start: 09-12-2024 End: 10-20-2024 take 2 puff(s) by inhalation every four hours as needed albuterol HFA (PROVENTIL HFA, VENTOLIN HFA) 90 mcg/actuation inhaler Inhale 2 puffs as instructed every 4 hours as needed. 1 each 5 09/12/2024 10/20/2024 Discontinued atorvastatin 40 mg oral tablet (20 sources) HMG-CoA Reductase Inhibitor Start: 09-21-2020 End: 12-11-2023 take 1 tablet by mouth once daily at bedtime for hyperlipidemia atorvastatin (LIPITOR) 40 mg tablet Indications: Mixed hyperlipidemia Take 1 tablet by mouth daily at bedtime. For cholesterol. 90 tablet 3 12/11/2023 Active Comment on above: Take 1 tablet by rosenda th daily at bedtime. For cholesterol. b complex, c, folic acid 1 mg renal vitamins (RENAL CAPS) 1 mg capsule (11 sources) Start: 10-20-2024 End: 10-20-2025 take 1 capsule by mouth three times daily before mealtime b complex, c, folic acid 1 mg renal vitamins (RENAL CAPS) 1 mg capsule Indications: ESRD (end stage renal disease) on dialysis (HCC) Take 1 capsule by mouth three times a day before meals. Uncertain of the name 90 capsule 11 10/20/2024 10/20/2025 Active Blood-Glucose Meter (ONETOUCH VERIO FLEX METER) (20 sources) Start: 07-06-2024 Blood-Glucose Meter (ONETOUCH VERIO FLEX METER) Dispense one meter kit. E11.9 1 each 07/06/2024 Active Blood-Glucose Meter,Continuous (FREESTYLE FESTUS 3 READER) misc (20 sources) Start: 07-06-2024 Blood-Glucose Meter,Continuous (FREESTYLE FESTUS 3 READER) misc Dispense one reader kit. E11.9 DIALYSIS PATIENT 1 each 07/06/2024 Active Blood-Glucose Sensor (FREESTYLE FESTUS 3 PLUS SENSOR) natty (20 sources) Start: 07-06-2024 Blood-Glucose Sensor (FREESTYLE FESTUS 3 PLUS SENSOR) natty CHANGE SENSOR EVERY 15 days, USE FOR CONTINUOUS GLUCOSE MONITORING. E11.9 DIALYSIS PATIENT 6 each 3 07/06/2024 Active calcitriol 0.15161 mg oral capsule (20 sources) Vitamin D3 Analog Start: 10-10-2024 Calcitriol 0.25 mcg capsule Active 1.5 ug PO TUTHSA October 10, 2024 12:00am dialysis 1.5 mcg orally 3XW; Start: 06-01-2024 calcitriol (RO CALTROL) 0.25 mcg capsule [The details of the medication are not available because there are pending changes by a home health clinician.] 06/01/2024 Active Start: 06-01-2024 calcitriol (RO CALTROL) 0.25 mcg capsule 6 pills daily 3X/week -- Per diaylsis 06/01/2024 Active Start: 09-10-2022 End: 09-06-2024 take 1.5 ug by mouth once Calcitriol 0.25 mcg capsule Discontinued 1.5 ug PO .TuThursSat September 10, 2022 12:00am September 06, 2024 [...] oral capsule (17 sources) Cephalosporin Antibacterial Start: 3 End: 3 take 1 capsule by mouth once daily [...] 14 days. Take 1 capsule by mo uth once daily for 7 days. Take after dialysis cholecalciferol 0.025 mg oral capsule (20 sources) Vitamin D Start: 10-04-19 14 take 5 capsules by mouth once daily [...] sources) Quinolone Antimicrobial Start: 08-14-19 End: 08-19-19 22 take 1 tablet by mouth once daily [...] 5 days. clindamycin 300 mg oral capsule (8 sources) Lincosamide Antibacterial Start: End: take 1 capsule by mouth three [...] 24, 2023 12:00am March 17, 2024 12:27pm clotrimazole 0.01 mg/mg topical ointment (12 sources) Azole Antifungal Start: 08-13-2021 End: 10-28-2021 clotrimazole 1 % oint Apply to affected area twice daily. 56.7 g 0 08/13/2021 10/28/2021 Discontinued Comment on above: Apply to affected ar ea twice daily. CPAP/BIPAP/OTHER (20 sources) Start: 07-29-2024 End: 12-14-2051 CPAP/BIPAP/OTHER APAP 5-20 cmH2O DME [facility] 1 each 07/29/2024 12/14/2051 Active Start: 07-04-2024 End: 07-29-2024 CPAP/BIPAP/OTHER APAP 5-20 c mH2O 1 each 07/04/2024 07/29/2024 Discontinued Start: 07-04-2024 End: 11-19-2051 CPAP/BIPAP/OTHER APAP 5-20 c mH2O 1 each 07/04/2024 11/19/2051 Active cyclobenzaprine hydrochloride 5 mg oral tablet (1 source) Muscle Relaxant Start: 10-26-2024 take 1 tablet by mouth three times daily as needed for muscle spasms Cyclobenzaprine 5 mg tablet Active 5 mg PO THREE TIMES A DAY as needed for muscle spasm 14 0 October 26, 2024 12:00am doxycycline hyclate 100 mg oral capsule (6 sources) Tetracycline-c lass Drug Start: 08-10-2024 End: 08-17-2024 take 1 capsule by mouth twice daily doxycycline hyclate (VIBRAMYCIN) 100 mg capsule Indications: Acute exacerbation of chronic obstructive pulmonary disease (HCC) Take 1 capsule by mouth two times a day for 7 days. 14 capsule 08/10/2024 08/17/2024 Active Start: 05-15-2023 take 1 capsule by [facility] twice daily doxycycline hyclate (VIBRAMYCIN) 100 mg capsule Take 1 capsule by mouth two times a day. 14 capsule 0 05/15/2023 Suspended Comment on above: Take 1 capsule by [facility] two times a day. 0.5 ml dulaglutide 1.5 mg/ml auto-injector (20 sources) GLP-1 Receptor Agonist Start: 06-01-2024 End: 07-06-2024 dulaglutide (TRULICITY) 0.75 mg/0.5 mL pen injector Indications: Type 2 diabetes, controlled, with neuropathy (HCC) Inject 0.75 mg subcutaneously one time a week. DX: E11.40 Type 2 DM 4 each 07/06/2024 Active Start: 09-10-2022 Dulaglutide (T rulicity) 1.5 mg/0.5 mL pen injector Active MG SC .every friday September 09, 2022 11:00pm Start: 06-28-2021 End: 10-10-2024 Dulaglutide (Trulicity) 1.5 mg/0.5 mL pen injector Discontinued 1.5 mg SC CORNELL September 10, 2022 12:00am October 10, 2024 5:17pm DIABETES Start: 09-25-2020 End: 09-25-2021 inject 0.75 mg by subcutaneous injection every week dulaglutide (TRULICITY) 0.75 mg/0.5 mL pen injector Indications: Type 2 diabetes, controlled, with neuropathy (HCC) Inject 0.75 mg subcutaneously one time a [...] mg by mouth once daily. 12/11/2023 Discontinued fluticasone propionate 0.05 mg/actuat metered dose nasal spray (14 sources) Corticosteroid Start: 10-24-2024 Fluticasone Pr opionate 50 mcg/actuation spray,suspension Active 2 NMA INTRANASAL Q12H October 24, 2024 12:00am allergies Start: 10-24-2024 Fluticasone Pr opionate 50 mcg/actuation spray,suspension Active INTRANASAL October 24, 2024 12:00am allergies Start: 10-20-2024 End: 04-18-2025 take 2 spray(s) by mouth once daily fluticasone (FLONASE) 50 mcg/actuation nasal spray Indications: Seasonal allergic rhinitis, unspecified trigger Use 2 sprays in each nostril once daily. Rinse mouth after use. 1 each 5 10/20/2024 04/18/2025 Active 12 hr guaiFENesin 600 mg extended release oral tablet (17 sources) Start: 10-26-2024 take 1 tablet by mouth at bedtime, then take 1 tablet by mouth every twelve hours Guaifenesin (Mucinex) 600 mg tablet extended release 12hr Active 600 mg PO AT BEDTIME October 26, 2024 12:00am mucus End: 11-19-2022 GUAIFENESIN ORAL Take by rosenda th. 0 11/19/2022 Discontinued GUAIFENESIN ORAL Take by mouth. 0 Active Comment on above: Take by mouth. 1 ml heparin sodium, porcine 5000 unt/ml injection (1 source) Unfractionated Heparin, Anti-coagulant Start: 2023 End: 2023 inject 1 mL by subcutaneous injection every eight hours heparin 5,000 unit/mL injection Inject 1 mL subcutaneously every 8 hours for 21 days. 63 mL 0 08/04/2023 08/25/2023 Active hydrOXYzine hydrochloride 50 mg oral tablet (20 sources) Antihistamine Start: 2024 End: 2024 take 1 capsule by mouth every twenty-four [...] on above: Take 1 tablet by rosenda every 6 hours as needed for itching/rash. Take by mouth. levoFLOXacin 250 mg oral tablet (5 sources) Quinolone Antimicrobial Start: 09-15-19 End: 10-29-19 levoFLOXacin (LEVAQUIN) 250 mg tablet Indications: Dental infection Two pills today, then one po q 48 hours. 7 tablet 0 09/14/2021 10/28/2021 Discontinued Comment on above: Two pills today, the n one po q 48 hours. melatonin 5 mg oral tablet (20 sources) Start: 10-29-19 take 1 tablet by mouth every twenty-four hours as needed melatonin 5 mg tablet Take 5 mg by mouth at bedtime as needed for insomnia. As needed. Patient should start on October 28, 2024. 10/28/2024 Active Start: 05-27-2016 take 2 capsules by m outh at bedtime Melatonin 5 MG capsule Active [...] sources) Dihydropyridine Calcium Channel Darvin Start: 09-07-19 take 1 tablet by mouth once daily Nifedipine 90 mg tablet extended release Active 90 mg PO DAILY September 06, 2024 12:00am BP Start: 09-06-2024 take 3 tablets by mo uth once daily Nifedipine 90 mg tablet extended release Active 270 mg PO DAILY September 06, 2024 12:00am Start: 03-17-2024 End: [...] on above: Take [address] [facility] once daily. ondansetron 4 mg disintegrating oral tablet (20 sources) Serotonin-3 Receptor Antagonist Start: 10-07-2024 take 1 tablet by mouth every eight hours as needed for nausea ondansetron orally disintegrating (ZOFRAN ODT) 4 mg disintegrating tablet Indications: Irritable bowel syndrome, unspecified type Take 1 tablet by mouth every 8 hours as needed for nausea/vomiting. 12 tablet 10/07/2024 Active Start: 07-02-2023 take 1 tablet by rosenda every eight hours as needed for nausea [...] rosenda th three times daily as needed. pregabalin 25 mg oral capsule (20 sources) Start: 2024 End: 2025 take 2 capsules by mouth once daily at bedtime pregabalin (LYRICA) 25 mg capsule Indications: RLS (restless legs syndrome) , Insomnia, unspecified type Take 2 capsules by mouth daily at bedtime for 180 days. 180 capsule 1 09/12/2024 03/11/2025 Active Start: 07-04-2024 End: 10-02-2024 take 1 capsule by mouth at bedtime Pregabalin 25 mg capsule Active 25 mg PO AT BEDTIME September 06, 2024 12:00am Pncsgqtv-Fr-Unl-Fe-FA ( VITAMIN) ORAL Tab (20 sources) Start: 07-08-2011 take 1 tablet by mouth once daily Asadzcsu-Lc-Xcu-Fe-FA ( VITAMIN) ORAL Tab Take 1 tablet by mouth once daily. 0 07/08/2011 Suspended Start: 07-08-2011 take 1 tablet by rosenda th once daily Gzjlgvuj-Ac-Qox-Fe-FA ( VITAMIN) ORAL Tab Take 1 tablet by mouth once daily. 0 07/08/2011 Active Comment on above: Take 1 tablet by rosenda th once daily. Vit No.[id number] ( Vitamins) 1 EACH tablet (20 sources) Start: 11-12-2017 take 1 tablet by mouth once daily Vit No.[id number] ( Vitamins) 1 EACH tablet Active 1 EACH PO DAILY November 12, 2017 5:38pm Start: 11-12-2017 End: 09-11-2022 take 1 tablet by mouth once daily Vit No.[id number] ( Vitamins) 1 EACH tablet Discontinued 1 NMA PO DAILY November 12, 2017 12:00am September 11, 2022 10:40am Start: 11-12-2017 End: 09-11-2022 take 1 tablet by mouth once daily Vit No.[id number] ( Vitamins) 1 EACH tablet Discontinued 1 EACH PO DAILY November 11, 2017 11:00pm September 11, 2022 9:40am Start: 11-12-2017 End: 09-11-2022 take 1 tablet by mouth once daily Vit No.260-Tsee-Kollx ( Vitamins) 1 EACH tablet Discontinued 1 EACH PO DAILY November 12, 2017 12:00am September 11, 2022 10:40am Start: 11-12-2017 take 1 tablet by rosenda th once daily Vit No.616-Yldq-Olfvi ( Vitamins) 1 EACH tablet Active 1 [...] proparacaine 0.5 % 1 Drop (A LCAINE) sucroferric oxyhydroxide 500 mg chewable tablet (5 sources) Start: 10-10-2024 take 1 tablet by mouth three times daily Sucroferric Oxyhydroxide (Velphoro) 500 mg tablet,chewable Active 500 mg PO THREE TIMES A DAY October 10, 2024 12:00am phosphate inhib sulfamethoxazole 400 mg / trimethoprim 80 mg oral tablet (7 sources) Dihydrofolate Reductase Inhibitor Antibacterial, Sulfonamide Antimicrobial Start: 08-05-2023 End: 08-25-2023 take 1 tablet by mouth once daily sulfamethoxazole-tri methoprim (BACTRIM) 400-80 mg per tablet Take 1 [...] above: Take 1 tablet by [facility] once daily for 14 days. tiZANidine 2 mg oral capsule (19 sources) Central alpha-2 Adrenergic Agonist Start: 10-21-19 End: 01-19-20 take 1 capsule by mouth twice daily as needed tiZANidine HCl (ZANAFLEX) 2 mg capsule Indications: Pain of right lower extremity Take 1 capsule by mouth twice daily as needed. 30 capsule 2 10/20/2022 01/18/2023 Active Comment on above: Take 1 capsule by [facility] twice daily as needed. torsemide 100 mg oral tablet (19 sources) Loop Diuretic Start: 09-11-19 take 1 tablet by mouth once torsemide (DEMADEX) 100 mg tablet Take 100 mg by mouth every Thursday, , and Thursday. Takes after dialysis 09/10/2024 Active tropicamide 10 mg/ml ophthalmic solution [...] 10/20/2022 Discontinued Comment on above: as directed. acetaminophen 325 mg / oxyCODONE hydrochloride 5 mg oral tablet (20 sources) Opioid Agonist Start: 06-04-2023 End: 06-09-2023 take 1 tablet by mouth every six hours as needed Oxycodone-Acetami nophen Active 1 TABLET PO EVERY 6 HOURS NEEDED 12 3 June 09, 2023 Start: 01-15-2023 End: 01-19-2023 take 1 tablet by mouth every six hours as needed Oxycodone-Acetaminophen Discontinued 1 TABLET PO EVERY 6 HOURS NEEDED 12 3 January 15, 2023 January 19, 2023 2:33pm Start: 07-24-2022 End: 10-10-2024 Oxycodone-Acetaminophen 5-32 5 mg tablet Discontinued 1 {tbl} PO EVERY 6 HOURS NEEDED as needed for Pain 12 3 0 June 09, 2023 September 25, 2023 10:05am Hardware failure Pain of right lower extremity Pain in right leg Comment on above: Take 1 tablet by rosenda th every 6 hours as needed for pain. aluminum hydroxide 40 mg/ml / magnesium hydroxide [...] 1 tablet by rosenda th twice daily. aspirin 81 mg oral tablet (20 sources) Platelet Aggregation Inhibitor, Nonsteroidal Anti-inflammatory Drug Start: End: take 1 capsule by mouth once daily Aspirin 81 mg capsule Discontinued 81 mg PO DAILY June 29, 2023 12:00am October 10, 2024 5:23pm Start: 05-27-2016 End: 07-06-2024 take 1 tablet by mouth once daily Aspirin (Aspir-Low) 81 MG tablet,delayed release (DR/EC) Discontinued 81 mg PO DAILY May 27, 2016 12:00am February 04, 2023 1:02pm Comment on above: Take 1 tablet by rosenda th once daily. baclofen 10 mg oral tablet (20 sources) gamma-Aminobutyric Acid-ergic Agonist Start: 021 End: take 1 tablet by mouth every eight hours as needed baclofen (LIORESAL) 10 mg tablet Take 1 tablet by mouth three times daily as needed. 30 tablet 1 09/21/2020 10/20/2022 Discontinued Comment on above: Take 1 tablet by rosenda th three times daily as needed. bisacodyl 10 [...] e once daily as needed for constipation. clopidogrel 75 mg oral tablet (12 sources) P2Y12 Platelet Inhibitor Start: End: take 1 tablet by mouth once daily Clopidogrel 75 mg tablet Discontinued 75 mg PO DAILY September 06, 2024 12:00am October 24, 2024 6:06pm diclofenac sodium 0.01 mg/mg topical gel (19 sources) Nonsteroidal Anti-inflammatory Drug Start: End: diclofenac (VOLTAREN ARTHRITIS PAIN) 1 % topical gel Apply 2 g to affected area four times daily. 240 g 5 11/19/2022 05/18/2023 Comment on above: Apply 2 g to affecte d area four times daily. docusate sodium 100 mg oral capsule (14 sources) Start: End: take 1 capsule by mouth once daily Docusate Sodium (Dok) 100 mg capsule Discontinued 100 mg PO DAILY January 15, 2023 1:00am March 17, 2024 12:27pm STOOL SOFTENER [id number] 0.15 ml EPINEPHrine 1 mg/ml auto-injector (20 [...] release oral tablet (20 sources) Sulfonylurea Start: 4 End: take 1 tablet by mouth every [...] tablet 3 05/03/2021 10/02/2021 Discontinued Start: 04-28-2015 End: 10-10-2024 take 2 tablets by mouth once daily Glipizide 5 MG tablet Discontinued 10 mg PO DAILY April 28, 2015 1:00am October 10, 2024 5:24pm DIABETES Start: 04-28-2015 take 10 mg by [...] 1 tablet by rosenda th once daily. Take 2 tablets by mo uth once daily. TAKE 2 TABLETS ONCE DAILY [...] SC BEFORE MEALS AND AT BEDTIME 0 0 September 11, 2022 12:00am January [...] Start: 03-07-2023 End: 03-05-2024 methoxy peg-epoetin beta (TN RCERA INJECTION) 150 mcg. 0 03/07/2023 03/05/2024 Active Comment on above: 150 mcg. methylPREDNISolone 4 mg oral tablet (20 sources) Corticosteroid Start: 2022 End: 2022 Methylprednisolone 4 mg Tablets,Dose Pack Discontinued 4 mg PO 0800,1200,1700 0 0 September 11, 2022 12:00am January 19, 2023 2:33pm naproxen 500 mg oral tablet (18 sources) Nonsteroidal Anti-inflammatory Drug Start: 2022 End: 2022 take 1 tablet by mouth twice daily as needed for pain Naproxen (Naprosyn) 500 mg tablet Discontinued 500 mg PO TWICE A DAY as needed for pain 14 0 January 13, 2023 1:00am January 19, 2023 2:33pm Comment on above: Take 1 tablet by rosenda th two times a day as needed (for [...] above: Take 1 tablet by [facility] every 8 hours as needed for pain [...] above: Take 1 tablet by [facility] once daily. Pnv,Calcium 16-Kzcg-Poqyw Acid [ Vitamin With Calcium No.72-Iron 27 Mg-Folic Acid 1 Mg Tablet] ( Vitamin With Calcium No.72-Iron 27 ) 27 mg iron- 1 mg tablet (8 sources) Start: 06-29-2023 End: 03-17-2024 Pnv,Calcium 56-Tchc-Sozji Acid [ Vitamin With Calcium No.72-Iron 27 Mg-Folic Acid 1 Mg Tablet] ( Vitamin With Calcium No.72-Iron 27 ) 27 mg iron- 1 mg tablet Discontinued 1 {tbl} PO DAILY June 29, 2023 12:00am March 17, 2024 12:29pm Start: 06-29-2023 take 1 tablet by [facility] once daily Pnv,Calcium 56-Uply-Gsnce Acid [ Vitamin With Calcium No.72-Iron 27 Mg-Folic Acid 1 Mg Tablet] ( Vitamin With Calcium No.72-Iron 27 ) 27 mg iron- 1 mg tablet Active 1 TABLET PO DAILY June 29, 2023 12:00am predniSONE 20 mg oral tablet (5 sources) Start: 10-13-2024 End: 10-24-2024 take 2 tablets by mouth at breakfast Prednisone 20 mg Tablet Discontinued 40 mg PO WITH BREAKFAST 10 5 0 October 13, 2024 12:00am October 24, 2024 6:07pm Start: 08-10-2024 End: 08-14-2024 take 2 tablets by mouth once daily predniSONE (DELTASONE) 20 mg tablet Indications: Acute exacerbation of chronic obstructive pulmonary disease (HCC) Take 2 tablets by mouth once daily for 4 days. 8 tablet 08/10/2024 08/14/2024 Active Remove Patch (20 sources) Start: 09-11-2022 End: 01-19-2023 apply 1 [...] DAILY@2200 0 September 11, 2022 12:00am sennosides, group home 8.6 mg oral tablet (13 sources) Start: [...] 1 tablet by rosenda th once daily. sevelamer carbonate 800 mg oral tablet (20 sources) Phosphate Binder Start: End: take 1 tablet by mouth three times daily at mealtime sevelamer carbonate (RENVELA) 800 mg tablet Take 1 tablet by mouth three times a day with meals. Ordered by dialysis 12/11/2023 06/01/2024 Discontinued (Adjust Sig - Block E-Cancel) Start: 02-04-2023 End: 10-20-2024 take 2 tablets by mouth three times daily Sevelamer Carbonate 800 mg tablet Active 1600 mg PO THREE TIMES A DAY February 04, 2023 1:00am food Start: 02-04-2023 take 1600 mg by mout [...] stage 5, GFR less than 15 ml/min ([facility]) , Hyperphosphatemia Take 1 tablet by mouth three times daily. 90 tablet 2 08/12/2022 11/10/2022 Comment on above: Take 1 tablet by rosenda three times daily. Take 800 mg by mouth three times a day with meals. sodium bicarbonate 650 mg oral tablet (20 [...] above: Take 1 tablet by [facility] twice daily. Take 2 tablets by [facility] twice daily. 125 ml sodium chloride 9 [...] on above: Take 1 tablet by rosenda every 6 hours as needed for pain [...] Problem Classification Problem Date Documented Date Episodic/Chronic Abdominal pain (9 sources) Abdominal pain; Translations: [Unspecified abdominal pain] Onset: 5 10-11-2024 Episodic Acquired foot deformities (2 sources) Hammer toe; Translations: [Other hammer toe(s) (acquired), left foot] Chronic Anxiety disorders (20 sources) Mixed anxiety and depressive disorder; Translations: [Other specified anxiety disorders] Onset: 4 Chronic Asthma (20 sources) Unspecified asthma, uncomplicated; Translations: [Asthma, unspecified type, unspecified] Onset: 9 03-09-2008 Chronic Cataract (20 sources) Pseudophakia; Translations: [Presence of intraocular lens] Onset: 1 12-12-2010 Chronic Chronic kidney disease (20 sources) Chronic kidney disease stage 4; Translations: [Chronic kidney disease, stage 4 (severe)] Onset: 8 Resolved: 4 10-23-2017 Chronic Chronic obstructive pulmonary disease and bronchiectasis (15 sources) Acute exacerbation of chronic obstructive airways [...] not elsewhere classified] Onset: 3 09-08-2012 Chronic Congestive heart failure; nonhypertensive (4 sources) Heart failure with normal ejection fraction; Translations: [Unspecified diastolic (congestive) heart failure] Onset: 5 10-25-2024 Chronic Deficiency and other anemia (1 source) Anemia, unspecified; Translations: [Anemia, unspecified] 01-29-2023 Episodic Deficiency and other anemia (11 sources) Chronic anemia; Translations: [Anemia, unspecified] 02-04-2023 Episodic Diabetes mellitus with complications (20 sources) Nonproliferative retinopathy due to diabetes mellitus; Translations: [Type 2 diabetes mellitus with 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 edema, unspecified eye] Onset: 9 Resolved: 5 12-16-2018 Chronic Diabetes mellitus without complication (20 sources) Type 2 diabetes mellitus; Translations: [Type 2 diabetes mellitus without complications] Onset: 5 01-19-2023 Chronic Diabetes mellitus without complication (1 source) Diabetes mellitus without complication; Translations: [Diabetes mellitus treated with injections of non-insulin medication (HCC)] Onset: 5 Disorders of lipid metabolism (20 sources) Hyperlipidemia; Translations: [Hyperlipidemia, unspecified] Onset: 3 Chronic E Codes: Fall (20 sources) Fall; Translations: [Unspecified fall, initial encounter] [...] Translations: [Vomiting, unspecified] Episodic Nonspecific chest pain (20 sources) Chest pain; Translations: [Chest pain, unspecified] Onset: 5 10-30-2022 Episodic Nutritional deficiencies (20 sources) Vitamin D deficiency; Translations: [Vitamin D deficiency, unspecified] Onset: 1 04-19-2010 Chronic Open wounds of extremities (7 sources) Open wound of toe of right foot; Translations: [Unspecified open wound of unspecified toe(s) without damage to nail, initial encounter] 05-15-2023 Episodic Osteoarthritis (16 sources) Unilateral post-traumatic osteoarthritis, left knee; Translations: [Osteoarthrosis, localized, secondary, lower leg] Chronic Other aftercare (11 sources) Wound ; Translations: [Encounter for other specified surgical aftercare] 02-04-2023 Episodic Other circulatory disease (7 sources) Low blood pressure; Translations: [Hypotension, unspecified] [...] 5 06-01-2024 Episodic Other connective tissue disease (6 sources) Weakness of face muscles; Translations: [Facial weakness] 03-17-2024 Episodic Other connective tissue disease (1 source) Fibromyalgia; Translations: [Fibromyalgia] Onset: 5 Episodic Other diseases of kidney and ureters (5 sources) Hyperparathyroidism due to renal insufficiency; Translations: [Secondary hyperparathyroidism of renal origin] Chronic Other diseases of kidney and ureters (12 sources) Secondary hyperparathyroidism; Translations: [Secondary hyperparathyroidism of renal origin] 01-22-2023 Chronic Other diseases of kidney and ureters (3 sources) Secondary hyperparathyroidism of renal origin; Translations: [Secondary hyperparathyroidism (of renal origin)] 01-29-2023 Chronic Other fractures (20 sources) Stress fracture; Translations: [Stress fracture, unspecified [...] syndrome, unspecified type] Onset: 5 Chronic Other gastrointestinal disorders (8 sources) Diarrhea; Translations: [Diarrhea, unspecified] 10-11-2024 Episodic Other gastrointestinal disorders (1 source) Diarrhea, unspecified; Translations: [Diarrhea, unspecified] Onset: 5 Episodic Other hematologic conditions (8 sources) Blood transfusion finding; Translations: [Transfusion of blood during current hospitalization] 06-29-2023 Episodic Other hereditary and degenerative nervous system conditions (3 sources) Restless legs; Translations: [Restless legs syndrome] 07-04-2024 Chronic Other hereditary and degenerative nervous system conditions (1 source) Restless legs syndrome; Translations: [RLS (restless legs syndrome)] Onset: 5 Chronic Other injuries and conditions due to external causes (20 sources) H/O: fracture; Translations: [Personal history of (healed) traumatic fracture] 01-15-2023 Episodic Other injuries and conditions due to external causes (12 sources) Closed injury of head; Translations: [Unspecified injury of head, initial encounter] 11-08-2023 Episodic Other lower respiratory disease (4 sources) Pulmonary edema; Translations: [Chronic pulmonary edema] 10-24-2024 Chronic Other lower respiratory disease (20 sources) History of chronic obstructive airway disease; Translations: [Personal history of other diseases of the respiratory system] 04-28-2015 Episodic Other lower respiratory disease (20 sources) H/O: asthma; Translations: [Personal history of [...] field] 07-29-2024 Episodic Other lower respiratory disease (8 sources) Respiratory insufficiency; Translations: [Other abnormalities of breathing] 10-11-2024 Episodic Other lower respiratory disease (2 sources) Hypoxia; Translations: [Hypoxemia] 10-24-2024 Episodic Other lower respiratory disease (2 sources) Hypoxemia; Translations: [Hypoxemia] Onset: 5 Episodic Other lower respiratory disease (1 source) Other abnormalities of breathing; Translations: [Other abnormalities of breathing] Onset: 5 Episodic Other nervous system disorders (20 sources) Neuropathy; Translations: [Polyneuropathy, unspecified] Onset: 0 09-24-2009 Chronic Other nervous system disorders (20 sources) Unable to walk; Translations: [Difficulty in [...] 9 02-21-2019 Chronic Other nervous system disorders (2 sources) Other chronic pain; Translations: [Chronic midline low back pain without sciatica] Onset: 5 Chronic Other nervous system disorders (1 source) Polyneuropathy, unspecified; Translations: [Neuropathy] Onset: 0 Chronic Other nervous system disorders (1 source) Other acute postprocedural pain; Translations: [Acute post-operative pain] Onset: 3 Episodic Other nervous system disorders (1 source) Acute postoperative pain; Translations: [Other acute postprocedural pain] 10-16-2022 Episodic Other nervous system disorders (6 sources) Paresthesia; Translations: [Paresthesia of skin] 04-10-2024 Episodic Other nervous system disorders (6 sources) Dysarthria; Translations: [Dysarthria and anarthria] 03-17-2024 Episodic Other nervous system disorders (6 sources) Numbness of hand; Translations: [Anesthesia of skin] [...] nutritional; endocrine; and metabolic disorders (20 sources) History of diabetes mellitus type 2; Translations: [Personal history of other endocrine, nutritional and metabolic disease] 04-28-2015 Episodic Other nutritional; endocrine; and metabolic disorders (1 source) Personal history of other endocrine, nutritional and metabolic disease; Translations: [Personal history of other endocrine, metabolic, and immunity disorders] 09-12-2022 Episodic Other nutritional; endocrine; and metabolic disorders (16 sources) H/O: diabetes mellitus; Translations: [Personal history of other endocrine, nutritional and metabolic disease] 03-09-2023 Episodic Other nutritional; endocrine; and metabolic disorders (8 sources) Body mass index 25-29 - overweight; Translations: [Overweight] 10-11-2024 Episodic Other nutritional; endocrine; and metabolic disorders (1 source) Overweight; Translations: [Overweight] Onset: Episodic Other screening for suspected conditions (not mental disorders or infectious disease) (1 source) Plain X-ray result abnormal; Translations: [Abnormal findings on diagnostic imaging of other specified body structures] 10-20-2022 Chronic Other screening for suspected conditions (not mental disorders or infectious disease) (17 sources) Patient encounter status; Translations: [Encounter for other screening for malignant neoplasm of breast] Onset: Episodic Other skin disorders (1 source) Ingrowing nail of toe of right foot; Translations: [Ingrowing nail] 05-15-2023 Episodic Other upper respiratory disease (1 source) Seasonal allergic rhinitis; Translations: [Other seasonal allergic rhinitis] 10-20-2024 Chronic Other upper respiratory disease (1 source) Other seasonal allergic rhinitis; Translations: [Seasonal allergic rhinitis, unspecified trigger] Onset: 5 Chronic Other upper respiratory infections (1 source) Viral upper respiratory tract infection; Translations: [Acute upper respiratory infection, unspecified] Episodic Pneumonia (except that caused by tuberculosis or sexually transmitted disease) (3 sources) Bacterial pneumonia; Translations: [Unspecified bacterial pneumonia] Onset: 5 10-20-2024 Episodic Residual codes; unclassified (20 sources) Obstructive [...] (pediatric); Translations: [CASSIE (obstructive sleep apnea)] Onset: 1 Chronic Residual codes; unclassified (1 source) Procedure not done; Translations: [Procedure and treatment not carried out, unspecified reason] Episodic Residual codes; unclassified (8 sources) Sign; Translations: [Other general symptoms and signs] 06-29-2023 Episodic Residual codes; unclassified (3 sources) Insomnia; Translations: [Insomnia, unspecified] 07-04-2024 Episodic Respiratory failure; insufficiency; arrest (adult) (2 sources) Chronic hypoxemic respiratory failure; Translations: [Chronic respiratory failure with hypoxia] Onset: 5 10-20-2024 Chronic Screening and history of mental health and substance abuse codes (20 sources) H/O: manic depressive disorder; Translations: [Personal history of other mental and behavioral disorders] Onset: 5 04-28-2015 Episodic Spondylosis; intervertebral disc disorders; other back problems (6 sources) Lumbar radiculopathy; Translations: [Radiculopathy, lumbar region] 10-20-2022 Episodic Superficial injury; contusion (20 sources) Contusion of lower back; Translations: [Contusion of lower back and pelvis, initial encounter] 07-05-2019 Episodic Transient cerebral ischemia (8 sources) Transient cerebral ischemia; Translations: [Transient cerebral ischemic attack, unspecified] 03-25-2024 Chronic Unclassified (1 source) Unknown / UNK(Unknown) Onset: 8 Unclassified (1 source) Established Patient Onset: 4 Unclassified (3 sources) to follow at dialysis appt. Unclassified (3 sources) [place] cordero Unclassified (1 source) Chronic midline low back pain without sciatica; Translations: [Chronic midline low back pain without sciatica] Onset: 5 Urinary tract infections (11 sources) Urinary tract infectious disease; Translations: [Urinary tract infection, site not specified] Onset: 5 Episodic Viral infection (1 source) Viral disease; Translations: [Viral infection, unspecified] Episodic Past or Other Problems Problem Classification Problem Date Documented Da te Episodic/Chronic Adjustment disorders (20 sources) Adjustment disorder; Translations: [Adjustment disorder with other symptoms] Onset: 05-02-2011 Resolved: 04-20-2020 04-20-2020 Chronic Biliary tract disease (20 sources) Gallstone; Translations: [Calculus of gallbladder without cholecystitis without obstruction] Onset: 03-09-2008 Resolved: 04-20-2020 03-09-2008 Episodic Blindness and vision defects (3 sources) Presbyopia; Translations: [Presbyopia] Onset: 07-11-2024 05-01-2023 Episodic Chronic ulcer of skin (20 sources) [...] Onset: 06-29-2008 Resolved: 04-20-2020 04-20-2020 Episodic Other aftercare (1 source) 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; Translations: [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, with long-term current use of insulin (HCC)] Onset: 07-11-2024 Episodic Other connective tissue disease (20 sources) [...] of lung field] Onset: 08-29-2021 Episodic Other lower respiratory disease (1 source) Other nonspecific abnormal finding of lung field; Translations: [Lung nodules] Onset: 07-27-2024 Episodic Other nervous system disorders (2 sources) [...] 02-13-2011 Resolved: 04-20-2020 04-20-2020 Episodic Pathological fracture (16 sources) Pathological fracture - lower leg; Translations: [Pathological fracture, right tibia, initial encounter for fracture] Onset: 12-11-2023 01-20-2023 Episodic Phlebitis; thrombophlebitis and thromboembolism (20 sources) H/O: Deep vein thrombosis; Translations: [Personal history of other venous thrombosis and embolism] Onset: 03-04-2016 03-04-2016 Episodic Comment on above: in rt and left leg, 8 years ago Residual codes; unclassified (20 sources) Edema; Translations: [Edema, unspecified] Onset: 09-21-2008 09-21-2008 Episodic Residual codes; unclassified (20 sources) Family history of ischemic heart disease; Translations: [Family history of ischemic heart disease and other diseases of the circulatory system] Onset: 03-04-2016 03-04-2016 Episodic Residual codes; unclassified (20 sources) Generalized aches and pains; Translations: [Pain, unspecified] Onset: 10-01-2009 Resolved: 02-21-2019 02-21-2019 Episodic Residual codes; unclassified (1 source) Insomnia, unspecified; Translations: [Insomnia, unspecified type] Onset: 07-04-2024 Episodic Sprains and strains (20 sources) Rupture of anterior cruciate ligament; Translations: [Sprain of anterior cruciate ligament of unspecified knee, initial encounter] Onset: 11-26-2009 Resolved: 04-20-2020 04-20-2020 Episodic Unclassified (1 source) Follow Up Onset: 03-19-2017 Unclassified (9 sources) Equipment error/failure; Translations: [Hardware failure] 06-04-2023 Unclassified (1 source) Patient encounter status 04-19-2024 Results Test Name Value Interpretation Reference Range Facility Absolute lymphocyte countOrd ered By: Sylvester Ortiz on 10-26-2024 Lymphocytes Auto (Unsp spec) [#/Vol] 0.99 10*3/uL 0.83-4.51 [facility] Absolute neutrophil countOrd ered By: Sylvester Ortiz on 10-26-2024 Neutrophils (Bld) [#/Vol] 4.5 10*3/uL 2.0-7.7 [facility] Anion gap in Serum or Plasma Ordered By: Sylvester Ortiz on 10-26-2024 Anion gap [Moles/Vol] 12 mmol/L 5-15 [facility] Automated lymphocyte count a s percentage of total leukocytesOrdered By: Sylvester Ortiz on 10-26-2024 Lymphocytes/100 WBC Auto (Unsp spec) 15.7 % Low 19-41 [facility] BUN/creatinine ratioOrdered By: Sylvester Ortiz on 10-26-2024 Urea nitrogen/Creatinine [Mass ratio] 5.2 mg/mg Low 10-20 [facility] Basic Metabolic Profile (BMP )on 10-26-2024 BUN/CRE 5.2 RATIO Low 10-20 [facility] Comment on above: Performed By: #### L 100.0100, L500.2500 ####[facility] [address] [place], [address] Calcium [Mass/Vol] 9.2 mg/dL Normal 7.6-11.0 [facility] Comment on above: Performed By: #### L 100.0100, L500.2500 ####[facility] [address] [place], [address] Chloride [Moles/Vol] 94 mmol/L Low 98-108 [facility] Comment on above: Performed By: #### L 100.0100, L500.2500 ####[facility] [address] [place], [address] CO2 [Moles/Vol] 25.5 mmol/L Normal 21.0-32.0 [facility] Comment on above: Performed By: #### L 100.0100, L500.2500 ####[facility] [address] [place], [address] Creatinine [Mass/Vol] 5.00 mg/dL High 0.70-1.20 [facility] [facility] Comment on above: Performed By: #### L 100.0100, L500.2500 ####[facility] [address] [place], [address] ECRCL 13.68 ml/min Low 50-250 [facility] Comment on above: Performed By: #### L 100.0100, L500.2500 ####[facility] [address] [place], [address] GAP 12 Normal 5-15 [facility] Comment on above: Performed By: #### L 100.0100, L500.2500 ####[facility] [address] [place], [address] GFR/1.73 sq M.predicted among non-blacks MDRD (S/P/Bld) [Vol rate/Area] 9 mL/min/{1.73_m2} Low >60 [facility] Comment on above: Result Comment: mL/m in/1.73m2 CKD-EPI Creatinine Equation (2020) Performed By: #### L 100.0100, L500.2500 ####[facility] [address] [place], [address] Glucose [Mass/Vol] 165 mg/dL High 70-99 [facility] Comment on above: Performed By: #### L 100.0100, L500.2500 ####[facility] [address] [place], [address] Potassium [Moles/Vol] 4.3 mmol/L Normal 3.3-5.1 [facility] Comment on above: Performed By: #### L 100.0100, L500.2500 ####[facility] [address] [place], [address] Sodium [Moles/Vol] 131 mmol/L Low 133-145 [facility] Comment on above: Performed By: #### L 100.0100, L500.2500 ####[facility] [address] [place], [address] Urea nitrogen [Mass/Vol] 26 mg/dL High 4-19 [facility] Comment on above: Performed By: #### L 100.0100, L500.2500 ####[facility] [address] [place], [address] Basophil percentageOrdered B y: Sylvester Ortiz on 10-26-2024 Basophils/100 WBC (Bld) 0.8 % 0-1 [facility] Bedside Glucoseon 10-26-2024 FINGERSTICK GLU 239 mg/dL High 74-106 [facility] Comment on above: Result Comment: SONJA GEMENT OF PATIENT CARE PER NURSING PROTOCOL Performed By: #### L 501.080 ####[facility] [address] [place], [address] FINGERSTICK GLU 147 mg/dL High 74-106 [facility] Comment on above: Result Comment: SONJA GEMENT OF PATIENT CARE PER NURSING PROTOCOL Performed By: #### L 501.080 ####[facility] [address] [place], [address] CBC W/Diff, Automatedon 10-01 Absolute Lymph 0.99 X10 3/uL Normal 0.83-4.51 [facility] Comment on above: Performed By: #### L 100.0100, L500.2500 ####[facility] [address] [place], [address] Absolute Neut 4.5 X10 3/uL Normal 2.0-7.7 [facility] Comment on above: Performed By: #### L 100.0100, L500.2500 ####[facility] [address] [place], [address] Basophils/100 WBC (Bld) 0.8 % Normal 0-1 [facility] Comment on above: Performed By: #### L 100.0100, L500.2500 ####[facility] [address] [place], [address] Eosinophils/100 WBC (Bld) 3.8 % Normal 0-5 [facility] Comment on above: Performed By: #### L 100.0100, L500.2500 ####[facility] [address] [place], [address] Erythrocyte distribution width (RBC) [Ratio] 14.2 % Normal 11.6-14.6 [facility] Comment on above: Performed By: #### L 100.0100, L500.2500 ####[facility] [address] [place], [address] Hematocrit (Bld) [Volume fraction] 26.4 % Low 37-47 [facility] Comment on above: Performed By: #### L 100.0100, L500.2500 ####[facility] [address] [place], [address] Hemoglobin (Bld) [Mass/Vol] 8.5 g/dL Low 12.0-15.0 [facility] Comment on above: Performed By: #### L 100.0100, L500.2500 ####[facility] [address] [place], [address] IG% 0.500 Normal 0.0-0.9 [facility] Comment on above: Result Comment: IG% - Immature Granulocytes (promyelocytes, myelocytes andmetamyelocytes) > 1% indicates that a LEFT SHIFT is Present. Performed By: #### L 100.0100, L500.2500 ####[facility] [address] [place], [address] Lymphocytes/100 WBC (Bld) 15.7 % Low 19-41 [facility] Comment on above: Performed By: #### L 100.0100, L500.2500 ####[facility] [address] [place], [address] MCH (RBC) [Entitic mass] 30.1 pg Normal 27.0-32.0 [facility] Comment on above: Performed By: #### L 100.0100, L500.2500 ####[facility] [address] [place], [address] MCHC (RBC) [Mass/Vol] 32.2 g/dL Normal 32-36 [facility] Comment on above: Performed By: #### L 100.0100, L500.2500 ####[facility] [address] [place], [address] MCV (RBC) [Entitic vol] 93.6 fL Normal 81-99 [facility] Comment on above: Performed By: #### L 100.0100, L500.2500 ####[facility] [address] [place], [address] Monocytes/100 WBC (Bld) 7.8 % Normal 0-10 [facility] Comment on above: Performed By: #### L 100.0100, L500.2500 ####[facility] [address] [place], [address] Neutrophils/100 WBC (Bld) 71.4 % High 47-70 [facility] Comment on above: Performed By: #### L 100.0100, L500.2500 ####[facility] [address] [place], [address] Nucleated RBC (Bld) [#/Vol] 0 10*3/uL Normal 0-5 [facility] Comment on above: Performed By: #### L 100.0100, L500.2500 ####[facility] [address] [place], [address] Platelet mean volume (Bld) [Entitic vol] 10.4 fL Normal 6.2-12.0 [facility] Comment on above: Performed By: #### L 100.0100, L500.2500 ####[facility] [address] [place], [address] Platelets (Bld) [#/Vol] 141 10*3/uL Low 150-450 [facility] Comment on above: Performed By: #### L 100.0100, L500.2500 ####[facility] [address] [place], [address] RBC (Bld) [#/Vol] 2.82 10*6/uL Low 4.2-5.[address] [facility] Comment on above: Performed By: #### L 100.0100, L500.2500 ####[facility] [address] [place], [address] RDW SD 47.3 fl High 35.1-43.9 [facility] Comment on above: Performed By: #### L 100.0100, L500.2500 ####[facility] [address] [place], [address] WBC (Bld) [#/Vol] 6.3 10*3/uL Normal 4.4-11.0 [facility] Comment on above: Performed By: #### L 100.0100, L500.2500 ####[facility] [address] [place], [address] CNPAnika 10-26-2024 [facility] Telephone (BLOSSOM) Margareth GONZALEZ ([id number]) 1965 F LV Date Time Provider Department 10/26/24 AUDRA CRESPO During your visit today, we recorded the following information about you: Audra Crespo LPN 10/26/2024 2:18 PM Signed Date/Time: 10/26/2024 2:15 PM Spoke with Halle @ phone #: [phone] - Preferred # for contact: [phone] Have you received help from a home care company in the last 60 days? No Can you commit to a visit in this time frame? Yes - If no, please advise that we would not be able to move forward with services and they would need to contact their provider when they are ready to start services. Are you agreeable to [facility] services? Yes What address will we be seeing you at? [address] [facility] [address] Do you have any upcoming appointments or things we need to schedule around? Yes dialysis T, TH. S Do you have a teachable CG or can you manage your care independently? No Who? Independent Allergies As of Date: 10/26/2024 Noted Allergy Reaction VICODIN (HYDROCODONE-ACETAMINO PHE*09/23/2007 11 - Vomiting BALSAM 115 09/23/2007 BALSAM JUAN 09/10/2022 16 - Unknown BARIUM SULFATE 05/01/2023 16 - Unknown BENADRYL ALLERGY DECONGESTANT 05/01/2023 9 - Itching BENADRYL (DIPHENHYDRAMINE HCL) 09/23/2007 2 - Rash 9 - Itching CODEINE 09/23/2007 11 - Vomiting 14 - Other: See Comments LISINOPRIL 05/26/2008 15 - Contraindication-Medic al [facility]* Comments: Acute renal failure MOLD 09/23/2007 NSAIDS (NON-STEROIDAL ANTI-INFLAM*09/13/2012 14 - Other: See Comments Comments: Unable to take nsaids after having gastric bypass. PENICILLINS 09/23/2007 10 - Anaphylaxis SEASONAL ALLERGIES 12/14/2008 14 - Other: See Comments Comments: Nose runs, sneezing... TETRACYCLINE 09/23/2007 2 - Rash VANILLA EXTRACT 09/23/2007 VANILLA EXTRACT FLAVOR 09/10/2022 16 - Unknown Date Reviewed: 10/20/2024 Reviewed by: Efra Box MA - Fully Assessed Reason for Visit: Home Care [[id number]] Cmt: Confirmation Call Prescriptions as of 10/26/2024 - b complex, c, folic acid 1 mg renal vitamins (RENAL CAPS) 1 mg capsule Take 1 capsule by mouth three times a day before meals. Uncertain of the name - albuterol HFA (PROVENTIL HFA, VENTOLIN HFA) 90 mcg/actuation inhaler Inhale 2 puffs as instructed every 2 hours as needed for wheezing/shortness of breath (night time). - fluticasone (FLONASE) 50 mcg/actuation nasal spray Use 2 sprays in each nostril once daily. Rinse mouth after use. - ondansetron orally disintegrating (ZOFRAN ODT) 4 mg disintegrating tablet Take 1 tablet by mouth every 8 hours as needed for nausea/vomiting. - torsemide (DEMADEX) 100 mg tablet Take 100 mg by mouth once daily. - pregabalin (LYRICA) 25 mg capsule Take 2 capsules by mouth daily at bedtime for 180 days. - CPAP/BIPAP/OTHER APAP 5-20 cmH2O [facility] - Blood-Glucose Meter (CompanyTOUCH VERIO FLEX METER) Dispense one meter kit. E11.9 - blood sugar diagnostic (ONETOUCH VERIO TEST STRIPS) test strip Checks once per day to calibrate CGM - lancets (CompanyTOUCH DELICA PLUS LANCET) 33 gauge Checks once per day to calibrate CGM E11.9 - Blood-Glucose Sensor (FREESTYLE FESTUS 3 PLUS SENSOR) natty CHANGE SENSOR EVERY 15 days, USE FOR CONTINUOUS GLUCOSE MONITORING. E11.9 DIALYSIS PATIENT - Blood-Glucose Meter,Continuous (FREESTYLE FESTUS 3 READER) [facility] Dispense one reader kit. E11.9 DIALYSIS PATIENT [...] pills daily 3X/week -- Per diaylsis - NIFEdipine ER (PROCARDIA XL) 30 mg [...] 5,000 Units by mouth twice daily. - Dqypvgof-Yk-Mlf-Fe-FA ( VITAMIN) ORAL Tab Take 1 tablet by mouth once daily. Meds Comments as of 11/28/2017: Pt states all meds were just gone over. Did not go over meds. Swathi Haddad Ma November 28, 2017 Problem List As Of Date 10/26/2024 Noted Resolved Acute gastritis [K29.00] 12/16/2007 08/04/2022 DM w/o complication type II, uncontrolled [IMO0*03/09/2008 12/07/2014 Routine gynecological examination [Z01.419] 03/09/2008 04/16/2017 Class: Chronic OBESITY NOS [E66.9] 03/09/2008 Acute anemia [D64.9] (more content not included)... Normal [facility] Telephone (HCSIND) Margareth GONZALEZ ([id number]) 1965 F Date Time Provider Department 10/26/24 BARBARA SIMMONS HCSMANOLO During your visit today, we recorded the following information about you: Barbara Simmons LPN 10/26/2024 1:05 PM Signed Called and spoke with pt, she stated she is currently admitted to [facility] for breathing concerns. Called and spoke with sister Halle, notified her since there was a change in condition we will have to cancel referral. Pt will need a new F2F / virtual visit with provider for hospital follow up and new orders placed. Barbara Simmons LPN Allergies As of Date: 10/26/2024 Noted Allergy Reaction VICODIN (HYDROCODONE-ACETAMINO PHE*09/23/2007 11 - Vomiting BALSAM 115 09/23/2007 BALSAM JUAN 09/10/2022 16 - Unknown BARIUM SULFATE 05/01/2023 16 - Unknown BENADRYL ALLERGY DECONGESTANT 05/01/2023 9 - Itching BENADRYL (DIPHENHYDRAMINE HCL) 09/23/2007 2 - Rash 9 - Itching CODEINE 09/23/2007 11 - Vomiting 14 - Other: See Comments LISINOPRIL 05/26/2008 15 - Contraindication-Medic al [facility]* Comments: Acute renal failure MOLD 09/23/2007 NSAIDS (NON-STEROIDAL ANTI-INFLAM*09/13/2012 14 - Other: See Comments Comments: Unable to take nsaids after having gastric bypass. PENICILLINS 09/23/2007 10 - Anaphylaxis SEASONAL ALLERGIES 12/14/2008 14 - Other: See Comments Comments: Nose runs, sneezing... TETRACYCLINE 09/23/2007 2 - Rash VANILLA EXTRACT 09/23/2007 VANILLA EXTRACT FLAVOR 09/10/2022 16 - Unknown Date Reviewed: 10/20/2024 Reviewed by: Efra Box MA - Fully Assessed Reason for Visit: Home Care [4073] Prescriptions as of 10/26/2024 - b complex, c, folic acid 1 mg renal vitamins (RENAL CAPS) 1 mg capsule Take 1 capsule by mouth three times a day before meals. Uncertain of the name - albuterol HFA (PROVENTIL HFA, VENTOLIN HFA) 90 mcg/actuation inhaler Inhale 2 puffs as instructed every 2 hours as needed for wheezing/shortness of breath (night time). - fluticasone (FLONASE) 50 mcg/actuation nasal spray Use 2 sprays in each nostril once daily. Rinse mouth after use. - ondansetron orally disintegrating (ZOFRAN ODT) 4 mg disintegrating tablet Take 1 tablet by mouth every 8 hours as needed for nausea/vomiting. - torsemide (DEMADEX) 100 mg tablet Take 100 mg by mouth once daily. - pregabalin (LYRICA) 25 mg capsule Take 2 capsules by mouth daily at bedtime for 180 days. - CPAP/BIPAP/OTHER APAP 5-20 cmH2O [facility] - Blood-Glucose Meter (ONETOUCH VERIO [...] - Blood-Glucose Meter,Continuous (FREESTYLE FESTUS 3 READER) [facility] Dispense one reader kit. E11.9 DIALYSIS PATIENT [...] pills daily 3X/week -- Per diaylsis - NIFEdipine ER (PROCARDIA XL) 30 mg [...] 5,000 Units by mouth twice daily. - Jlfzuqwt-Yj-Zas-Fe-FA ( VITAMIN) ORAL Tab Take 1 tablet by mouth once daily. Meds Comments as of 11/28/2017: Pt states all meds were just gone over. Did not go over meds. Swathi Haddad Ma November 28, 2017 Problem List As Of Date 10/26/2024 Noted Resolved Acute gastritis [K29.00] 12/16/2007 08/04/2022 [...] 4 c (more content not included)... Normal [facility] Telephone (HCSIND) Margareth GONZALEZ ([id number]) 1965 F LV Date Time Provider Department 10/26/24 AUDRA CRESPO During your visit today, we recorded the following information about you: Audra Crespo LPN 10/26/2024 1:57 PM Signed Ignacio Cheatham MD Please advise if you are agreeable to signing and following for HHC services? Our Clinicians will be sending the Plan of Care to you for review and approval. They will reach out for any appropriate orders required to provide home care services for the patient. We are not able to initiate HHC services without a following provider. Home care clinicians may also obtain orders from [facility] Virtualist Providers Thank you and we would be happy to answer any questions. Audra Crespo LPN 10/26/2024 1:56 PM Ignacio Cheatham MD 10/26/2024 2:43 PM Signed ok Allergies As of Date: 10/26/2024 Noted Allergy Reaction VICODIN (HYDROCODONE-ACETAMINO PHE*09/23/2007 11 - Vomiting BALSAM 115 09/23/2007 BALSAM JUAN 09/10/2022 16 - Unknown BARIUM SULFATE 05/01/2023 16 - Unknown BENADRYL ALLERGY DECONGESTANT 05/01/2023 9 - Itching BENADRYL (DIPHENHYDRAMINE HCL) 09/23/2007 2 - Rash 9 - Itching CODEINE 09/23/2007 11 - Vomiting 14 - Other: See Comments LISINOPRIL 05/26/2008 15 - Contraindication-Medic al [facility]* Comments: Acute renal failure MOLD 09/23/2007 NSAIDS (NON-STEROIDAL ANTI-INFLAM*09/13/2012 14 - Other: See Comments Comments: Unable to take nsaids after having gastric bypass. PENICILLINS 09/23/2007 10 - Anaphylaxis SEASONAL ALLERGIES 12/14/2008 14 - Other: See Comments Comments: Nose runs, sneezing... TETRACYCLINE 09/23/2007 2 - Rash VANILLA EXTRACT 09/23/2007 VANILLA EXTRACT FLAVOR 09/10/2022 16 - Unknown Date Reviewed: 10/20/2024 Reviewed by: Efra Box MA - Fully Assessed Reason for Visit: Home Care [4073] Cmt: to Follow Prescriptions as of 10/26/2024 - b complex, c, folic acid 1 mg renal vitamins (RENAL CAPS) 1 mg capsule Take 1 capsule by mouth three times a day before meals. Uncertain of the name - albuterol HFA (PROVENTIL HFA, VENTOLIN HFA) 90 mcg/actuation inhaler Inhale 2 puffs as instructed every 2 hours as needed for wheezing/shortness of breath (night time). - fluticasone (FLONASE) 50 mcg/actuation nasal spray Use 2 sprays in each nostril once daily. Rinse mouth after use. - ondansetron orally disintegrating (ZOFRAN ODT) 4 mg disintegrating tablet Take 1 tablet by mouth every 8 hours as needed for nausea/vomiting. - torsemide (DEMADEX) 100 mg tablet Take 100 mg by mouth once daily. - pregabalin (LYRICA) 25 mg capsule Take 2 capsules by mouth daily at bedtime for 180 days. - CPAP/BIPAP/OTHER APAP 5-20 [facility]H2O [facility] - Blood-Glucose Meter (ONETOUCH VERIO [...] - Blood-Glucose Meter,Continuous (FREESTYLE FESTUS 3 READER) [facility] Dispense one reader kit. E11.9 DIALYSIS PATIENT [...] pills daily 3X/week -- Per diaylsis - NIFEdipine ER (PROCARDIA XL) 30 mg [...] 5,000 Units by mouth twice daily. - Fcspldte-Tj-Fpv-Fe-FA ( VITAMIN) ORAL Tab Take 1 tablet by mouth once daily. Meds Comments as of 11/28/2017: Pt states all meds were just gone over. Did not go over meds. Swathi Haddad Ma November 28, 2017 Problem List As Of Date 10/26/2024 Noted Resolved Acute gastritis [K29.00] 12/16/2007 08/04/2022 DM w/o complication type II, uncontrolled [IMO0*03/09/2008 12/07/2014 Routine gynecological examination [Z01.419] 03/09/2008 04/16/2017 Class: Chronic OBESITY NOS [E66.9] 03/09/2008 Acute anemia [D64.9] 03/09/2008 Background diabetic retinopathy (HCC) [E11.3299]03/09/2008 Asthma [J45.909] 03/09/2008 DIABETIC FOOT ULCER [L97.509] (more content not included)... Normal [facility] Carbon dioxide, total [Moles /volume] in Central venous bloodOrdered By: Sylvester Ortiz on 10-26-2024 CO2 [Moles/Vol] 25.5 mmol/L 21.0-32.0 [facility] Chloride assayOrdered By: Loc Ortiz on 10-26-2024 Chloride [Moles/Vol] 94 mmol/L Low 98-108 [facility] Electrocardiogram reportOrde red By: Romie Dalton on 10-26-[address] [facility] [address] [place] [address] 12 Lead EKG 10/24/24 1349 MR#: [id number] Acct: [id number] Name: Margareth GONZALEZ Rep #:[id number] 3 : 1965 59 From: Romie Dalton MD Attending Dr: Dr. Sylvester Ortiz DO Status: ADM IN Ordering Dr: Sylvester Winston DO Date: 0 10/24/24 Location: [facility] Sex: F C Admitted: 10/24/24 Test Reason : SOB Blood Pressure : */* mmHG Vent. Rate : 95 BPM Atrial Rate : 95 BPM P-R Int : 148 ms QRS Dur : 94 ms QT Int : 360 ms P-R-T Axes : 69 73 138 degrees QTcB Int : 452 ms Normal sinus rhythm Nonspecific ST and T wave abnormality Abnormal ECG Confirmed by ROMIE DALTON ([id number]), editor news LINDA PICKETT ([id number]) on 10/26/2024 1:56:59 PM Referred By: Confirmed By: ROMIE DALTON 10/26/24 1356 Date _ Romie Dalton MD CC: Dr. Sylvester Ortiz DO; Dr. Sylvester Winston DO; Dr. Ignacio Cheatham MD ~ Signed [facility] Work Phone: Eosinophil percentageOrdered By: Sylvester Ortiz on 10-26-2024 Eosinophils/100 WBC (Bld) 3.8 % 0-5 [facility] Erythrocyte distribution wid th ratioOrdered By: Sylvester Ortiz on 10-26-2024 Erythrocyte distribution width (RBC) [Ratio] 14.2 % 11.6-14.6 [facility] Erythrocyte distribution wid th standard deviationOrdered By: Sylvester Ortiz on 10-26-2024 Erythrocyte distribution width (RBC) [Ratio] 47.3 fl High 35.1-43.9 [facility] Glomerular filtration rate ( GFR) estimation/1.73 sq m using serum, plasma, or whole bOrdered By: Sylvester Ortiz on 10-26-2024 GFR/1.73 sq M.predicted among non-blacks MDRD (S/P/Bld) [Vol rate/Area] 9 mL/min/{1.73_m2} Low >60 [facility] Comment on above: mL/min/1.73m2 CKD-EP I Creatinine Equation (2020) [facility] deOrdered By: Sylvester Ortiz on 10-26-2024 Glucose [Mass/Vol] 239 mg/dL High 74-106 [facility] Comment on above: MANAGEMENT OF PATIEN T CARE PER NURSING PROTOCOL Hematocrit Auto (Bld) [Volum e fraction]Ordered By: Sylvester Ortiz on 10-26-2024 Hematocrit (Bld) [Volume fraction] 26.4 % Low 37-47 [facility] Hemoglobin measurementOrdere d By: Sylvester Ortiz on 10-26-2024 Hemoglobin (Bld) [Mass/Vol] 8.5 g/dL Low 12.0-15.0 [facility] Immature granulocytes/100 WB C Auto (Bld)Ordered By: Sylvester Ortiz on 10-26-2024 Immature granulocytes/100 WBC (Bld) 0.500 % 0.0-0.9 [facility] Comment on above: IG% - Immature Granu locytes (promyelocytes, myelocytes and metamyelocytes) > 1% indicates that a LEFT SHIFT is Present. MCV (mean corpuscular volume ) determinationOrdered By: Sylvester Ortiz on 10-26-2024 MCV (RBC) [Entitic vol] 93.6 fL 81-99 [facility] Mean corpuscular hemoglobin (MCH) determinationOrdered By: Sylvester Ortiz on 10-26-2024 MCH (RBC) [Entitic mass] 30.1 pg 27.0-32.0 [facility] Mean corpuscular hemoglobin concentration (MCHC) determinationOrdered By: Sylvester Ortiz on 10-26-2024 MCHC (RBC) [Mass/Vol] 32.2 g/dL 32-36 [facility] Mean platelet volume determi nationOrdered By: Sylvester Ortiz on 10-26-2024 Platelet mean volume (Bld) [Entitic vol] 10.4 fL 6.2-12.0 [facility] Monocyte percentageOrdered B y: Sylvester Ortiz on 10-26-2024 Monocytes/100 WBC (Bld) 7.8 % 0-10 [facility] Neutrophil percentageOrdered By: Sylvester Ortiz on 10-26-2024 Neutrophils/100 WBC (Bld) 71.4 % High 47-70 [facility] Nucleated red blood cell per centageOrdered By: Sylvester Ortiz on 10-26-2024 Nucleated RBC/100 WBC (Bld) [Ratio] 0 % 0-5 [facility] Platelet countOrdered By: Loc Ortiz on 10-26-2024 Platelets (Bld) [#/Vol] 141 10*3/uL Low 150-450 [facility] Potassium measurement (mass/ volume)Ordered By: Sylvester Ortiz on 10-26-2024 Potassium (Unsp spec) [Mass/Vol] 4.3 mmol/L 3.3-5.1 [facility] RBC Auto (Bld) [#/Vol]Ordere d By: Sylvester Ortiz on 10-26-2024 RBC (Bld) [#/Vol] 2.82 10*6/uL Low 4.2-5.[address] [facility] Serum creatinine measurement (mass/volume)Ordered By: Sylvester Ortiz on 10-26-2024 Creatinine [Mass/Vol] 5.00 mg/dL High 0.70-1.20 [facility] Serum glucose measurement (m ass/volume)Ordered By: Sylvester Ortiz on 10-26-2024 Glucose [Mass/Vol] 165 mg/dL High 70-99 [facility] Serum or plasma calcium joya urement (mass/volume)Ordered By: Sylvester Ortiz on 10-26-2024 Calcium [Mass/Vol] 9.2 mg/dL 7.6-11.0 [facility] Serum or plasma urea nitroge n measurement (mass/volume)Ordered By: Sylvester Ortiz on 10-26-2024 Urea nitrogen [Mass/Vol] 26 mg/dL High 4-19 [facility] Sodium levelOrdered By: Sylvester Ortiz on 10-26-2024 Sodium [Moles/Vol] 131 mmol/L Low 133-145 [facility] White blood cell (WBC) count Ordered By: Sylvester Ortiz on 10-26-2024 WBC (Bld) [#/Vol] 6.3 10*3/uL 4.4-11.0 [facility] Basic Metabolic Profile (BMP )on 10-25-2024 BUN/CRE 5.0 RATIO Low 10-20 [facility] Comment on above: Performed By: #### L 100.0100, L500.2500 ####[facility] [address] [place], [address] Calcium [Mass/Vol] 8.6 mg/dL Normal 7.6-11.0 [facility] Comment on above: Performed By: #### L 100.0100, L500.2500 ####[facility] [address] [place], [address] Chloride [Moles/Vol] 93 mmol/L Low 98-108 [facility] Comment on above: Performed By: #### L 100.0100, L500.2500 ####[facility] [address] [place], [address] CO2 [Moles/Vol] 25.0 mmol/L Normal 21.0-32.0 [facility] Comment on above: Performed By: #### L 100.0100, L500.2500 ####[facility] [address] [place], [address] Creatinine [Mass/Vol] 6.91 mg/dL High 0.70-1.20 [facility] Comment on above: Performed By: #### L 100.0100, L500.2500 ####[facility] [address] [place], [address] ECRCL 9.98 ml/min Invalid Interpretation Code 50-250 [facility] Comment on above: Performed By: #### L 100.0100, L500.2500 ####[facility] [address] [place], [address] GAP 16 High 5-15 [facility] Comment on above: Performed By: #### L 100.0100, L500.2500 ####[facility] [address] [place], [address] GFR/1.73 sq M.predicted among non-blacks MDRD (S/P/Bld) [Vol rate/Area] 6 mL/min/{1.73_m2} Low >60 [facility] Comment on above: Result Comment: mL/m in/1.73m2 CKD-EPI Creatinine Equation (2020) Performed By: #### L 100.0100, L500.2500 ####[facility] [address] [place], [address] Glucose [Mass/Vol] 125 mg/dL High 70-99 [facility] Comment on above: Performed By: #### L 100.0100, L500.2500 ####[facility] [address] [place], [address] Potassium [Moles/Vol] 3.7 mmol/L Normal 3.3-5.1 [facility] Comment on above: Performed By: #### L 100.0100, L500.2500 ####[facility] [address] [place], [address] Sodium [Moles/Vol] 133 mmol/L Normal 133-145 [facility] Comment on above: Performed By: #### L 100.0100, L500.2500 ####[facility] [address] [place], [address] Urea nitrogen [Mass/Vol] 35 mg/dL High 4-19 [facility] Comment on above: Performed By: #### L 100.0100, L500.2500 ####[facility] [address] [place], [address] Bedside Glucoseon 10-25-2024 FINGERSTICK GLU 192 mg/dL High 74-106 [facility] Comment on above: Result Comment: SONJA GEMENT OF PATIENT CARE PER NURSING PROTOCOL Performed By: #### L 501.080 ####[facility] [address] [place], [address] FINGERSTICK GLU 245 mg/dL High 74-106 [facility] Comment on above: Result Comment: SONJA GEMENT OF PATIENT CARE PER NURSING PROTOCOL Performed By: #### L 501.080 ####[facility] [address] [place], [address] FINGERSTICK GLU 168 mg/dL High 74-106 [facility] Comment on above: Result Comment: SONJA GEMENT OF PATIENT CARE PER NURSING PROTOCOL Performed By: #### L 501.080 ####[facility] [address] [place], [address] FINGERSTICK GLU 126 mg/dL High 74-106 [facility] Comment on above: Result Comment: SONJA GEMENT OF PATIENT CARE PER NURSING PROTOCOL Performed By: #### L 501.080 ####[facility] [address] [place], [address] CBC W/Diff, Automatedon 10-01 Absolute Lymph 1.07 X10 3/uL Normal 0.83-4.51 [facility] Comment on above: Performed By: #### L 100.0100, L500.2500 ####[facility] [address] [place], [address] Absolute Neut 5.2 X10 3/uL Normal 2.0-7.7 [facility] Comment on above: Performed By: #### L 100.0100, L500.2500 ####[facility] [address] [place], [address] Basophils/100 WBC (Bld) 0.6 % Normal 0-1 [facility] Comment on above: Performed By: #### L 100.0100, L500.2500 ####[facility] [address] [place], [address] Eosinophils/100 WBC (Bld) 3.5 % Normal 0-5 [facility] Comment on above: Performed By: #### L 100.0100, L500.2500 ####[facility] [address] [place], [address] Erythrocyte distribution width (RBC) [Ratio] 14.2 % Normal 11.6-14.6 [facility] Comment on above: Performed By: #### L 100.0100, L500.2500 ####[facility] [address] [place], [address] Hematocrit (Bld) [Volume fraction] 25.6 % Low 37-47 [facility] Comment on above: Performed By: #### L 100.0100, L500.2500 ####[facility] [address] [place], [address] Hemoglobin (Bld) [Mass/Vol] 8.3 g/dL Low 12.0-15.0 [facility] Comment on above: Performed By: #### L 100.0100, L500.2500 ####[facility] [address] [place], [address] IG% 0.600 Normal 0.0-0.9 [facility] Comment on above: Result Comment: IG% - Immature Granulocytes (promyelocytes, myelocytes andmetamyelocytes) > 1% indicates that a LEFT SHIFT is Present. Performed By: #### L 100.0100, L500.2500 ####[facility] [address] [place], [address] Lymphocytes/100 WBC (Bld) 15.0 % Low 19-41 [facility] Comment on above: Performed By: #### L 100.0100, L500.2500 ####[facility] [address] [place], [address] MCH (RBC) [Entitic mass] 30.3 pg Normal 27.0-32.0 [facility] Comment on above: Performed By: #### L 100.0100, L500.2500 ####[facility] [address] [place], [address] MCHC (RBC) [Mass/Vol] 32.4 g/dL Normal 32-36 [facility] Comment on above: Performed By: #### L 100.0100, L500.2500 ####[facility] [address] [place], [address] MCV (RBC) [Entitic vol] 93.4 fL Normal 81-99 [facility] Comment on above: Performed By: #### L 100.0100, L500.2500 ####[facility] [address] [place], [address] Monocytes/100 WBC (Bld) 7.3 % Normal 0-10 [facility] Comment on above: Performed By: #### L 100.0100, L500.2500 ####[facility] [address] [place], [address] Neutrophils/100 WBC (Bld) 73.0 % High 47-70 [facility] Comment on above: Performed By: #### L 100.0100, L500.2500 ####[facility] [address] [place], [address] Nucleated RBC (Bld) [#/Vol] 0 10*3/uL Normal 0-5 [facility] Comment on above: Performed By: #### L 100.0100, L500.2500 ####[facility] [address] [place], [address] Platelet mean volume (Bld) [Entitic vol] 11.1 fL Normal 6.2-12.0 [facility] Comment on above: Performed By: #### L 100.0100, L500.2500 ####[facility] [address] [place], [address] Platelets (Bld) [#/Vol] 143 10*3/uL Low 150-450 [facility] Comment on above: Performed By: #### L 100.0100, L500.2500 ####[facility] [address] [place], [address] RBC (Bld) [#/Vol] 2.74 10*6/uL Low 4.2-5.[address] [facility] Comment on above: Performed By: #### L 100.0100, L500.2500 ####[facility] [address] [place], [address] RDW SD 47.5 fl High 35.1-43.9 [facility] Comment on above: Performed By: #### L 100.0100, L500.2500 ####[facility] [address] [place], [address] WBC (Bld) [#/Vol] 7.1 10*3/uL Normal 4.4-11.0 [facility] Comment on above: Performed By: #### L 100.0100, L500.2500 ####[facility] [address] [place], [address] Kesha 10-25-2024 [facility] Margareth GONZALEZ ([id number]) 1965 F LV Date Time Provider Department 10/25/24 AUDRA SIMON During your visit today, we recorded the following information about you: Audra Simon RN 10/25/2024 5:10 PM Signed Called patient to confirm and schedule start of care visit. No answer. No voicemail available. Allergies As of Date: 10/25/2024 Noted Allergy Reaction VICODIN (HYDROCODONE-ACETAMINO PHE*09/23/2007 11 - Vomiting BALSAM 115 09/23/2007 BALSAM JUAN 09/10/2022 16 - Unknown BARIUM SULFATE 05/01/2023 16 - Unknown BENADRYL ALLERGY DECONGESTANT 05/01/2023 9 - Itching BENADRYL (DIPHENHYDRAMINE HCL) 09/23/2007 2 - Rash 9 - Itching CODEINE 09/23/2007 11 - Vomiting 14 - Other: See Comments LISINOPRIL 05/26/2008 15 - Contraindication-Medic al [facility]* Comments: Acute renal failure MOLD 09/23/2007 NSAIDS (NON-STEROIDAL ANTI-INFLAM*09/13/2012 14 - Other: See Comments Comments: Unable to take nsaids after having gastric bypass. PENICILLINS 09/23/2007 10 - Anaphylaxis SEASONAL ALLERGIES 12/14/2008 14 - Other: See Comments Comments: Nose runs, sneezing... TETRACYCLINE 09/23/2007 2 - Rash VANILLA EXTRACT 09/23/2007 VANILLA EXTRACT FLAVOR 09/10/2022 16 - Unknown Date Reviewed: 10/20/2024 Reviewed by: Efra Box MA - Fully Assessed Reason for Visit: Home Care [7551] Prescriptions as of 10/25/2024 - b complex, c, folic acid 1 mg renal vitamins (RENAL CAPS) 1 mg capsule Take 1 capsule by mouth three times a day before meals. Uncertain of the name - albuterol HFA (PROVENTIL HFA, VENTOLIN HFA) 90 mcg/actuation inhaler Inhale 2 puffs as instructed every 2 hours as needed for wheezing/shortness of breath (night time). - fluticasone (FLONASE) 50 mcg/actuation nasal spray Use 2 sprays in each nostril once daily. Rinse mouth after use. - ondansetron orally disintegrating (ZOFRAN ODT) 4 mg disintegrating tablet Take 1 tablet by mouth every 8 hours as needed for nausea/vomiting. - torsemide (DEMADEX) 100 mg tablet Take 100 mg by mouth once daily. - pregabalin (LYRICA) 25 mg capsule Take 2 capsules by mouth daily at bedtime for 180 days. - CPAP/BIPAP/OTHER APAP 5-20 cmH2O [facility] - Blood-Glucose Meter (ONETOUCH VERIO FLEX METER) Dispense one meter kit. E11.9 - blood sugar diagnostic (CompanyTOUCH VERIO TEST STRIPS) test strip Checks once per day to calibrate CGM - lancets (CompanyTOUCH DELICA PLUS LANCET) 33 gauge Checks once per day to calibrate CGM E11.9 - Blood-Glucose Sensor (FREESTYLE FESTUS 3 PLUS SENSOR) natty CHANGE SENSOR EVERY 15 days, USE FOR CONTINUOUS GLUCOSE MONITORING. E11.9 DIALYSIS PATIENT - Blood-Glucose Meter,Continuous (FREESTYLE FESTUS 3 READER) [facility] Dispense one reader kit. E11.9 DIALYSIS PATIENT [...] pills daily 3X/week -- Per diaylsis - NIFEdipine ER (PROCARDIA XL) 30 mg [...] 5,000 Units by mouth twice daily. - Mpmwdwkh-Ge-Iol-Fe-FA ( VITAMIN) ORAL Tab Take 1 tablet by mouth once daily. Meds Comments as of 11/28/2017: Pt states all meds were just gone over. Did not go over meds. Swathi Haddad Ma November 28, 2017 Problem List As Of Date 10/25/2024 Noted Resolved Acute gastritis [K29.00] 12/16/2007 08/04/2022 [...] [R60.9] 09/21/2008 Ulcer of heel and midfoot (HC (more content not included)... Normal [facility] Consultation - Nephrologyon 10-25-2024 Consultation - Nephrology Normal [facility] Echocardiogram study reportO rdered By: Romie Dalton on 10-25-2024 Study report [facility] [place] [address] Echo Complete 10/25/24 5711 MR#: [id number] Acct: [id number] Name: Margareth GONZAELZ Rep #:[id number] : 1965 59 From: Romie Dalton MD Attending Dr: Dr. Sylvester Ortiz, DO Status: ADM IN Ordering Dr: Mone Riggs MD Date: Location: [facility] Sex: F C Admitted: 10/24/24 Reason For Study Reason For Study: CHEST PAIN Procedure This was a 2D Doppler, Color Flow transthoracic echocardiogram. Exam performed portable in patient room. Left Ventricle Moderately dilated left ventricle. The estimated ejection fraction is 25???30 %. Right Ventricle Normal right ventricle. Mild to moderate global right ventricular systolic dysfunction. Atria The left atrium is moderately enlarged. Mitral Valve The mitral valve is structurally normal. No prolapse or stenosis seen. Mild (1+)mitral valve insufficiency. Tricuspid Valve Normal tricuspid valve. No tricuspid valve insufficiency. Aortic Valve Trisinus/trileaflet aortic valve. Pulmonic Valve The pulmonic valve is not well visualized. Great Vessels The aortic root is not well visualized. Pericardium/Pleural Small (<1.0 cm) pericardial effusion. MMode/2D Measurements & Calculations LVIDd: 5.6 cm IVSd: 0.78 cm LVOT diam: 2.0 cm LVIDs: 4.8 cm LVPWd: 0.89 cm LVOT area: 3.0 cm2 RVDd: 3.9 cm FS: 13.6 % CO(Teich): 4.0 l/min asc Aorta Diam: 3.5 cm LAV(MOD-bp): 69.5 ml LAV(MOD-bp) Indexed: 35.1 ml/m2 LAV(MOD-sp2): 62.7 ml LAV(MOD-sp4): 77.4 ml CO(MOD-sp4): 3.9 l/min LVAd ap4: 34.6 cm2 LVAd ap2: 31.8 cm2 SV(MOD-sp4): 43.6 ml LVLd ap4: 8.7 cm LVLd ap2: 8.6 cm EDV(MOD-sp4): 114.3 ml EDV(MOD-sp2): 98.0 ml SI(MOD-sp4): 22.0 ml/m2 EDV(sp4-el): 116.2 ml EDV(sp2-el): 99.6 ml LVAs ap4: 25.7 cm2 LVAs ap2: 26.2 cm2 LVLs ap4: 8.0 cm LVLs ap2: 8.2 cm ESV(MOD-sp4): 70.6 ml ESV(MOD-sp2): 71.1 ml ESV(sp4-el): 70.4 ml ESV(sp2-el): 71.6 ml EF(MOD-sp4): 38.2 % EF(MOD-sp2): 27.4 % EF(sp4-el): 39.4 % SV(MOD-sp2): 26.9 ml SV(sp4-el): 45.8 ml Ao sinus diam: 2.8 cm SI(MOD-sp2): 13.6 ml/m2 Ao ST Junction: 2.5 cm LA dimension(2D): 4.3 cm LA A4 area: 23.2 cm2 TAPSE: 1.5 cm RA A4 area: 13.7 cm2 Time Measurements MV dec time: 0.09 sec Doppler Measurements & Calculations MV E max wallace: 128.0 cm/sec Lat Peak E' Wallace: 7.8 cm/sec Med Peak E' Wallace: 7.0 cm/sec MV A max wallace: 53.2 cm/sec E/E' lat: 16.4 E/E' med: 18.2 MV E/A: 2.4 MV dec slope: 1380 cm/sec2 Ao V2 max: 159.1 cm/sec LV V1 max: 125.4 cm/sec Ao max P.1 mmHg LV V1 max P.3 mmHg Ao V2 mean: 103.6 cm/sec LV V1 mean P.1 mmHg Ao mean P.1 mmHg LV V1 mean: 80.8 cm/sec Ao V2 VTI: 28.4 cm LV V1 VTI: 22.4 cm AV (velocity ratio): 0.79 LUISA(I,D): 2.4 cm2 LUISA(V,D): 2.4 cm2 CO(LVOT): 6.3 l/min PA V2 max: 79.8 cm/sec SV(LVOT): 67.0 ml ECHO/Echo Complete Interpretation Summary The estimated ejection fraction is 25???30 %. Severe LV systolic dysfunction with global LV hypokinesia Significant change from previous echocardiogram in March 2024 with remarkably reduced LV systolic dysfunction. Ordering Physician: Mone Riggs Performed By: Cande Shrestha [facility] 10/25/245 Date _ Romie Dalton MD CC: Dr. Sylvester Ortiz DO; Dr. Mone Riggs MD; Dr. Ignacio Cheatham MD ~ Date Dictated: 10/25/24 1454 Date Transcribed: 10/25/241644 Seafood Clerk: Signed [facility] Work Phone: Troponin T HS 2 HRon 025 Trop T High Sen 219 ng/L Invalid Interpretation Code <=14 [facility] Comment on above: Result Comment: Crit ical Result(s) Called at: 0001 by:??ELEONORA HAVEN TOADRAIN TAMMY Results read back by same. Performed By: #### L 499.0042 ####[facility] [address] [place], [place], [address] Troponin T HS 4 HRon 025 Trop T High Sen 230 ng/L Invalid Interpretation Code <=14 [facility] Comment on above: Result Comment: Crit ical Result(s) Called at: 01:50 10-25-24 TO OMAR by:??MARIA EUGENIA SOL Results read back by same. Performed By: #### L 499.0043 ####[facility] [address] [place], [place], [address] Troponin T.cardiac [Mass/vol ume] in Serum or Plasma by High sensitivity methodOrdered By: Mone Riggs on 10-25-2024 Troponin T.cardiac High sensitivity method [Mass/Vol] 230 ng/L High <14 [facility] Comment on above: Critical Result(s) C alled at: 01:50 10-25-24 TO JIMENA GAGNON by: MARIA EUGENIA SOL Results read back by same. 12 Lead EKGon 10-24-2024 12 Lead EKG Normal [facility] Absolute lymphocyte countOrd ered By: Sylvester Winston on 10-24-2024 Lymphocytes Auto (Unsp spec) [#/Vol] 0.81 10*3/uL Low 0.83-4.51 [facility] Absolute neutrophil countOrd ered By: Sylvester Winston on 10-24-2024 Neutrophils (Bld) [#/Vol] 5.0 10*3/uL 2.0-7.7 [facility] Anion gap in Serum or Plasma Ordered By: Sylvester Winston on 10-24-2024 Anion gap [Moles/Vol] 18 mmol/L High 5-15 [facility] Automated lymphocyte count a s percentage of total leukocytesOrdered By: Sylvester Winston on 10-24-2024 Lymphocytes/100 WBC Auto (Unsp spec) 12.8 % Low 19-41 [facility] BUN/creatinine ratioOrdered By: Sylvester Winston on 10-24-2024 Urea nitrogen/Creatinine [Mass ratio] 4.9 mg/mg Low 10-20 [facility] Basic Metabolic Profile (BMP )on 10-24-2024 BUN/CRE 4.9 RATIO Low 10-20 [facility] Comment on above: Performed By: #### L 500.2500, L100.0100, L503.7505 ####[facility] [address] [place], [address] Calcium [Mass/Vol] 8.8 mg/dL Normal 7.6-11.0 [facility] Comment on above: Performed By: #### L 500.2500, L100.0100, L503.7505 ####[facility] [address] [place], [address] Chloride [Moles/Vol] 90 mmol/L Low 98-108 [facility] Comment on above: Performed By: #### L 500.2500, L100.0100, L503.7505 ####[facility] [address] [place], [address] CO2 [Moles/Vol] 25.3 mmol/L Normal 21.0-32.0 [facility] Comment on above: Performed By: #### L 500.2500, L100.0100, L503.7505 ####[facility] [address] [place], [address] Creatinine [Mass/Vol] 5.97 mg/dL High 0.70-1.20 [facility] Comment on above: Performed By: #### L 500.2500, L100.0100, L503.7505 ####[facility] [address] [place], [address] ECRCL 11.91 ml/min Low 50-250 [facility] Comment on above: Performed By: #### L 500.2500, L100.0100, L503.7505 ####[facility] [address] [place], [address] GAP 18 High 5-15 [facility] Comment on above: Performed By: #### L 500.2500, L100.0100, L503.7505 ####[facility] [address] [place], [address] GFR/1.73 sq M.predicted among non-blacks MDRD (S/P/Bld) [Vol rate/Area] 8 mL/min/{1.73_m2} Low >60 [facility] Comment on above: Result Comment: mL/m in/1.73m2 CKD-EPI Creatinine Equation (2020) Performed By: #### L 500.2500, L100.0100, L503.7505 ####[facility] [address] [place], [address] Glucose [Mass/Vol] 316 mg/dL High 70-99 [facility] Comment on above: Performed By: #### L 500.2500, L100.0100, L503.7505 ####[facility] [address] [place], [address] Potassium [Moles/Vol] 3.7 mmol/L Normal 3.3-5.1 [facility] Comment on above: Performed By: #### L 500.2500, L100.0100, L503.7505 ####[facility] [address] [place], [address] Sodium [Moles/Vol] 133 mmol/L Normal 133-145 [facility] Comment on above: Performed By: #### L 500.2500, L100.0100, L503.7505 ####[facility] [address] [place], [address] Urea nitrogen [Mass/Vol] 29 mg/dL High 4-19 [facility] Comment on above: Performed By: #### L 500.2500, L100.0100, L503.7505 ####[facility] [address] [place], [address] Basophil percentageOrdered B y: Sylvester Winston on 10-24-2024 Basophils/100 WBC (Bld) 0.5 % 0-1 [facility] Bedside Glucoseon 10-24-2024 FINGERSTICK GLU 379 mg/dL High 74-106 [facility] Comment on above: Result Comment: SONJA VARGAS OF PATIENT CARE PER NURSING PROTOCOL Performed By: #### L 501.080 ####[facility] [address] [place], [address] CBC W/Diff, Automatedon 10-01 Absolute Lymph 0.81 X10 3/uL Low 0.83-4.51 [facility] Comment on above: Performed By: #### L 500.2500, L100.0100, L503.7505 ####[facility] [address] [place], [address] Absolute Neut 5.0 X10 3/uL Normal 2.0-7.7 [facility] Comment on above: Performed By: #### L 500.2500, L100.0100, L503.7505 ####[facility] [address] [place], [address] Basophils/100 WBC (Bld) 0.5 % Normal 0-1 [facility] Comment on above: Performed By: #### L 500.2500, L100.0100, L503.7505 ####[facility] [address] [place], [address] Eosinophils/100 WBC (Bld) 2.4 % Normal 0-5 [facility] Comment on above: Performed By: #### L 500.2500, L100.0100, L503.7505 ####[facility] [address] [place], [address] Erythrocyte distribution width (RBC) [Ratio] 14.1 % Normal 11.6-14.6 [facility] Comment on above: Performed By: #### L 500.2500, L100.0100, L503.7505 ####[facility] [address] [place], [address] Hematocrit (Bld) [Volume fraction] 27.1 % Low 37-47 [facility] Comment on above: Performed By: #### L 500.2500, L100.0100, L503.7505 ####[facility] [address] [place], [address] Hemoglobin (Bld) [Mass/Vol] 8.7 g/dL Low 12.0-15.0 [facility] Comment on above: Performed By: #### L 500.2500, L100.0100, L503.7505 ####[facility] [address] [place], [address] IG% 0.600 Normal 0.0-0.9 [facility] Comment on above: Result Comment: IG% - Immature Granulocytes (promyelocytes, myelocytes andmetamyelocytes) > 1% indicates that a LEFT SHIFT is Present. Performed By: #### L 500.2500, L100.0100, L503.7505 ####[facility] [address] [place], [address] Lymphocytes/100 WBC (Bld) 12.8 % Low 19-41 [facility] Comment on above: Performed By: #### L 500.2500, L100.0100, L503.7505 ####[facility] [address] [place], [address] MCH (RBC) [Entitic mass] 29.7 pg Normal 27.0-32.0 [facility] Comment on above: Performed By: #### L 500.2500, L100.0100, L503.7505 ####[facility] [address] [place], [address] MCHC (RBC) [Mass/Vol] 32.1 g/dL Normal 32-36 [facility] Comment on above: Performed By: #### L 500.2500, L100.0100, L503.7505 ####[facility] [address] [place], [address] MCV (RBC) [Entitic vol] 92.5 fL Normal 81-99 [facility] Comment on above: Performed By: #### L 500.2500, L100.0100, L503.7505 ####[facility] [address] [place], [address] Monocytes/100 WBC (Bld) 4.9 % Normal 0-10 [facility] Comment on above: Performed By: #### L 500.2500, L100.0100, L503.7505 ####[facility] [address] [place], [address] Neutrophils/100 WBC (Bld) 78.8 % High 47-70 [facility] Comment on above: Performed By: #### L 500.2500, L100.0100, L503.7505 ####[facility] [address] [place], [address] Nucleated RBC (Bld) [#/Vol] 0 10*3/uL Normal 0-5 [facility] Comment on above: Performed By: #### L 500.2500, L100.0100, L503.7505 ####[facility] [address] [place], [address] Platelet mean volume (Bld) [Entitic vol] 11.4 fL Normal 6.2-12.0 [facility] Comment on above: Performed By: #### L 500.2500, L100.0100, L503.7505 ####[facility] [address] [place], [address] Platelets (Bld) [#/Vol] 135 10*3/uL Low 150-450 [facility] Comment on above: Performed By: #### L 500.2500, L100.0100, L503.7505 ####[facility] [address] [place], [address] RBC (Bld) [#/Vol] 2.93 10*6/uL Low 4.2-5.[address] [facility] Comment on above: Performed By: #### L 500.2500, L100.0100, L503.7505 ####[facility] [address] [place], [address] RDW SD 47.4 fl High 35.1-43.9 [facility] Comment on above: Performed By: #### L 500.2500, L100.0100, L503.7505 ####[facility] [address] [place], [address] WBC (Bld) [#/Vol] 6.3 10*3/uL Normal 4.4-11.0 [facility] Comment on above: Performed By: #### L 500.2500, L100.0100, L503.7505 ####[facility] [address] [place], [address] Carbon dioxide, total [Moles /volume] in Central venous bloodOrdered By: Sylvester Winston on 10-24-2024 CO2 [Moles/Vol] 25.3 mmol/L 21.0-32.0 [facility] Chest PA and Lateralon 10-24 Chest PA and Lateral Normal [facility] Chloride assayOrdered By: Loc Winston on 10-24-2024 Chloride [Moles/Vol] 90 mmol/L Low 98-108 [facility] Echo Completeon 10-24-2024 Echo Complete Normal [facility] Emergency Department Summary on 10-24-2024 Emergency Department Summary Normal [facility] Eosinophil percentageOrdered By: Sylvester Winston on 10-24-2024 Eosinophils/100 WBC (Bld) 2.4 % 0-5 [facility] Erythrocyte distribution wid th ratioOrdered By: Sylvester Winston on 10-24-2024 Erythrocyte distribution width (RBC) [Ratio] 14.1 % 11.6-14.6 [facility] Erythrocyte distribution wid th standard deviationOrdered By: Sylvester Winston on 10-24-2024 Erythrocyte distribution width (RBC) [Ratio] 47.4 fl High 35.1-43.9 [facility] Glomerular filtration rate ( GFR) estimation/1.73 sq m using serum, plasma, or whole bOrdered By: Sylvester Wisnton on 10-24-2024 GFR/1.73 sq M.predicted among non-blacks MDRD (S/P/Bld) [Vol rate/Area] 8 mL/min/{1.73_m2} Low >60 [facility] Comment on above: mL/min/1.73m2 CKD-EP I Creatinine Equation (2020) H AND P Exam - [place] 10-24-2024 H&P Exam - Hospitalist Normal [facility] Hematocrit Auto (Bld) [Volum e fraction]Ordered By: Sylvester Winston on 10-24-2024 Hematocrit (Bld) [Volume fraction] 27.1 % Low 37-47 [facility] Hemoglobin measurementOrdere d By: Sylvester Winston on 10-24-2024 Hemoglobin (Bld) [Mass/Vol] 8.7 g/dL Low 12.0-15.0 [facility] Immature granulocytes/100 WB C Auto (Bld)Ordered By: Sylvester Winston on 10-24-2024 Immature granulocytes/100 WBC (Bld) 0.600 % 0.0-0.9 [facility] Comment on above: IG% - Immature Granu locytes (promyelocytes, myelocytes and metamyelocytes) > 1% indicates that a LEFT SHIFT is Present. L501.4021on 10-24-2024 Trop T High Sen 234 ng/L Invalid Interpretation Code <=14 [facility] Comment on above: Result Comment: Crit ical Result(s) Called at 10/24/24-21:34 by Cristi Ballard??Results read back by same. Performed By: #### L 501.4026 ####[facility] [id number] [place], [place], [id number] MCV (mean corpuscular volume ) determinationOrdered By: Sylvester Winston on 10-24-2024 MCV (RBC) [Entitic vol] 92.5 fL 81-99 [facility] Mean corpuscular hemoglobin (MCH) determinationOrdered By: Sylvester Winston on 10-24-2024 MCH (RBC) [Entitic mass] 29.7 pg 27.0-32.0 [facility] Mean corpuscular hemoglobin concentration (MCHC) determinationOrdered By: Sylvester Winston on 10-24-2024 MCHC (RBC) [Mass/Vol] 32.1 g/dL 32-36 [facility] Mean platelet volume determi nationOrdered By: Sylvester Winston on 10-24-2024 Platelet mean volume (Bld) [Entitic vol] 11.4 fL 6.2-12.0 [facility] Monocyte percentageOrdered B y: Sylvester Winston on 10-24-2024 Monocytes/100 WBC (Bld) 4.9 % 0-10 [facility] Natriuretic peptide.B prohor javon N-Terminal [Mass/volume] in Serum or PlasmaOrdered By: Sylvester Winston on 10-24-2024 Natriuretic peptide.B prohormone N-Terminal [Mass/Vol] > 34590 pg/mL High <900 [facility] Comment on above: Heart Failure Unlike ly: < 300 pg/mLHeart Failure Likely< 50 Years: > 450 pg/mL50-75 Years: > 900 pg/mL>75 Years: > 1800 pg/mL Neutrophil percentageOrdered By: Sylvester Winston on 10-24-2024 Neutrophils/100 WBC (Bld) 78.8 % High 47-70 [facility] Nucleated red blood cell per centageOrdered By: Sylvester Winston on 10-24-2024 Nucleated RBC/100 WBC (Bld) [Ratio] 0 % 0-5 [facility] Platelet countOrdered By: Loc Winston on 10-24-2024 Platelets (Bld) [#/Vol] 135 10*3/uL Low 150-450 [facility] Potassium measurement (mass/ volume)Ordered By: Sylvester Winston on 10-24-2024 Potassium (Unsp spec) [Mass/Vol] 3.7 mmol/L 3.3-5.1 [facility] Pro- Brain NATRIURETIC PEPTI Fritz 10-24-2024 proBNP > 51234 High <=900 [facility] Comment on above: Result Comment: Hear t Failure Unlikely: < 300 pg/mLHeart Failure Likely< 50 Years: > 450 pg/mL50-75 Years: > 900 pg/mL>75 Years: > 1800 pg/mL Performed By: #### L 500.2500, L100.0100, L503.7505 ####[facility] [id number] [place], [address] RBC Auto (Bld) [#/Vol]Ordere d By: Sylvester Winston on 10-24-2024 RBC (Bld) [#/Vol] 2.93 10*6/uL Low 4.2-5.[address] [facility] Serum creatinine measurement (mass/volume)Ordered By: Sylvester Winston on 10-24-2024 Creatinine [Mass/Vol] 5.97 mg/dL High 0.70-1.20 [facility] Serum glucose measurement (m ass/volume)Ordered By: Sylvester Winston on 10-24-2024 Glucose [Mass/Vol] 316 mg/dL High 70-99 [facility] Serum or plasma calcium joya urement (mass/volume)Ordered By: Sylvester Winston on 10-24-2024 Calcium [Mass/Vol] 8.8 mg/dL 7.6-11.0 [facility] Serum or plasma urea nitroge n measurement (mass/volume)Ordered By: Sylvester Winston on 10-24-2024 Urea nitrogen [Mass/Vol] 29 mg/dL High 4-19 [facility] Sodium levelOrdered By: Sylvester Winston on 10-24-2024 Sodium [Moles/Vol] 133 mmol/L 133-145 [facility] Troponin T.cardiac [Mass/vol ume] in Serum or Plasma by High sensitivity methodOrdered By: Mone Riggs on 10-24-2024 Troponin T.cardiac High sensitivity method [Mass/Vol] 219 ng/L High <14 [facility] Comment on above: Critical Result(s) C alled at: 0001 by: ELEONORA MCCONNELL TO SIM TAMMY Results read back by same. Troponin T.cardiac High sensitivity method [Mass/Vol] 234 ng/L High <14 [facility] Comment on above: Delta: 129 on Critical Result(s) Called at 10/24/24-21:34 by Cristi Bragg to Shireen Ballard Results read back by same. White blood cell (WBC) count Ordered By: Sylvester Winstno on 10-24-2024 WBC (Bld) [#/Vol] 6.3 10*3/uL 4.4-11.0 [facility] CNPNon 10-21-2024 CNPN Telephone (HCSIND) Margareth GONZALEZ ([id number]) 1965 F [place] Date Time Provider Department 10/21/24 [facility] During your visit today, we recorded the following information about you: Barbara Simmons LPN 10/21/2024 2:56 PM Signed Date/Time: 10/21/2024 2:51 PM Spoke with sister Halle @ phone #: [phone] - Preferred # for contact: [phone] or sister Halle [phone] Have you received help from a home care company in the last 60 days? No Can you commit to a visit in this time frame? Will need M0102 approval - If no, please advise that we would not be able to move forward with services and they would need to contact their provider when they are ready to start services. Are you agreeable to [facility] services? Yes What address will we be seeing you at? [address] [facility] [address] Do you have any upcoming appointments or things we need to schedule around? Dialysis T, Th, Sa Do you have a teachable CG or can you manage your care independently? Independent with care Who? Sister is available for help Allergies As of Date: 10/21/2024 Noted Allergy Reaction VICODIN (HYDROCODONE-ACETAMINO PHE*09/23/2007 11 - Vomiting BALSAM 115 09/23/2007 BALSAM JUAN 09/10/2022 16 - Unknown BARIUM SULFATE 05/01/2023 16 - Unknown BENADRYL ALLERGY DECONGESTANT 05/01/2023 9 - Itching BENADRYL (DIPHENHYDRAMINE HCL) 09/23/2007 2 - Rash 9 - Itching CODEINE 09/23/2007 11 - Vomiting 14 - Other: See Comments LISINOPRIL 05/26/2008 15 - Contraindication-Medic al [facility]* Comments: Acute renal failure MOLD 09/23/2007 NSAIDS (NON-STEROIDAL ANTI-INFLAM*09/13/2012 14 - Other: See Comments Comments: Unable to take nsaids after having gastric bypass. PENICILLINS 09/23/2007 10 - Anaphylaxis SEASONAL ALLERGIES 12/14/2008 14 - Other: See Comments Comments: Nose runs, sneezing... TETRACYCLINE 09/23/2007 2 - Rash VANILLA EXTRACT 09/23/2007 VANILLA EXTRACT FLAVOR 09/10/2022 16 - Unknown Date Reviewed: 10/20/2024 Reviewed by: Efra Box MA - Fully Assessed Reason for Visit: Home Care [4073] Cmt: Confirmation Call Prescriptions as of 10/21/2024 - b complex, c, folic acid 1 mg renal vitamins (RENAL CAPS) 1 mg capsule Take 1 capsule by mouth three times a day before meals. Uncertain of the name - albuterol HFA (PROVENTIL HFA, VENTOLIN HFA) 90 mcg/actuation inhaler Inhale 2 puffs as instructed every 2 hours as needed for wheezing/shortness of breath (night time). - fluticasone (FLONASE) 50 mcg/actuation nasal spray Use 2 sprays in each nostril once daily. Rinse mouth after use. - ondansetron orally disintegrating (ZOFRAN ODT) 4 mg disintegrating tablet Take 1 tablet by mouth every 8 hours as needed for nausea/vomiting. - torsemide (DEMADEX) 100 mg tablet Take 100 mg by mouth once daily. - pregabalin (LYRICA) 25 mg capsule Take 2 capsules by mouth daily at bedtime for 180 days. - CPAP/BIPAP/OTHER APAP 5-20 cmH2O [facility] - Blood-Glucose Meter (ONETOUCH VERIO FLEX METER) [...] pills daily 3X/week -- Per diaylsis - NIFEdipine ER (PROCARDIA XL) 30 mg [...] 5,000 Units by mouth twice daily. - Ihhuwuxq-Vc-Yhs-Fe-FA ( VITAMIN) ORAL Tab Take 1 tablet by mouth once daily. Meds Comments as of 11/28/2017: Pt states all meds were just gone over. Did not go over meds. Swathi Haddad Ma November 28, 2017 Problem List As Of Date 10/21/2024 Noted Resolved Acute gastritis [K29.00] 12/16/2007 08/04/2022 DM w/o complication type II, uncontrolled [IMO0*03/09/2008 12/07/2014 Routine gynecological examination [Z01.419] 03/09 (more content not included)... Normal [facility] CNPN Telephone (HCSIND) Margareth GONZALEZ ([id number]) 1965 F LV Date Time Provider Department 10/21/24 ADELINA CORTEZ HCSIND During your visit today, we recorded the following information about you: Adelina Cortez 10/21/2024 2:51 PM Signed Patient sister returned call transferred to [facility] Allergies As of Date: 10/21/2024 Noted Allergy Reaction VICODIN (HYDROCODONE-ACETAMINO PHE*09/23/2007 11 - Vomiting BALSAM 115 09/23/2007 BALSAM JUAN 09/10/2022 16 - Unknown BARIUM SULFATE 05/01/2023 16 - Unknown BENADRYL ALLERGY DECONGESTANT 05/01/2023 9 - Itching BENADRYL (DIPHENHYDRAMINE HCL) 09/23/2007 2 - Rash 9 - Itching CODEINE 09/23/2007 11 - Vomiting 14 - Other: See Comments LISINOPRIL 05/26/2008 15 - Contraindication-Medic al [facility]* Comments: Acute renal failure MOLD 09/23/2007 NSAIDS (NON-STEROIDAL ANTI-INFLAM*09/13/2012 14 - Other: See Comments Comments: Unable to take nsaids after having gastric bypass. PENICILLINS 09/23/2007 10 - Anaphylaxis SEASONAL ALLERGIES 12/14/2008 14 - Other: See Comments Comments: Nose runs, sneezing... TETRACYCLINE 09/23/2007 2 - Rash VANILLA EXTRACT 09/23/2007 VANILLA EXTRACT FLAVOR 09/10/2022 16 - Unknown Date Reviewed: 10/20/2024 Reviewed by: Efra Box MA - Fully Assessed Reason for Visit: Home Care [4073] Prescriptions as of 10/21/2024 - b complex, c, folic acid 1 mg renal vitamins (RENAL CAPS) 1 mg capsule Take 1 capsule by mouth three times a day before meals. Uncertain of the name - albuterol HFA (PROVENTIL HFA, VENTOLIN HFA) 90 mcg/actuation inhaler Inhale 2 puffs as instructed every 2 hours as needed for wheezing/shortness of breath (night time). - fluticasone (FLONASE) 50 mcg/actuation nasal spray Use 2 sprays in each nostril once daily. Rinse mouth after use. - ondansetron orally disintegrating (ZOFRAN ODT) 4 mg disintegrating tablet Take 1 tablet by mouth every 8 hours as needed for nausea/vomiting. - torsemide (DEMADEX) 100 mg tablet Take 100 mg by mouth once daily. - pregabalin (LYRICA) 25 mg capsule Take 2 capsules by mouth daily at bedtime for 180 days. - CPAP/BIPAP/OTHER APAP 5-20 cmH2O [facility] - Blood-Glucose Meter (ONETOUCH VERIO FLEX METER) Dispense one meter kit. E11.9 - blood sugar diagnostic (ONETOUCH VERIO TEST STRIPS) test strip Checks once per day to calibrate CGM - lancets (CompanyTOUCH DELICA PLUS LANCET) 33 gauge Checks once per day to calibrate CGM E11.9 - Blood-Glucose Sensor (FREESTYLE FESTUS 3 PLUS SENSOR) natty CHANGE SENSOR EVERY 15 days, USE FOR CONTINUOUS GLUCOSE MONITORING. E11.9 DIALYSIS PATIENT - Blood-Glucose Meter,Continuous (FREESTYLE FESTUS 3 READER) [facility] Dispense one reader kit. E11.9 DIALYSIS PATIENT [...] pills daily 3X/week -- Per diaylsis - NIFEdipine ER (PROCARDIA XL) 30 mg [...] 5,000 Units by mouth twice daily. - Jhpihtwc-Et-Eur-Fe-FA ( VITAMIN) ORAL Tab Take 1 tablet by mouth once daily. Meds Comments as of 11/28/2017: Pt states all meds were just gone over. Did not go over meds. Swathi Haddad Ma November 28, 2017 Problem List As Of Date 10/21/2024 Noted Resolved Acute gastritis [K29.00] 12/16/2007 08/04/2022 [...] and midfoot (HCC) [L97.409] 02/08/2009 04/16/2017 Chronic rachana (more content not included)... Normal [facility] Telephone (HCSIND) Margareth GONZALEZ ([id number]) 1965 F LV Date Time Provider Department 10/21/24 BARBARA SIMMONS During your visit today, we recorded the following information about you: Barbara Simmons LPN 10/21/2024 2:58 PM Signed Patient's sister declined scheduled nursing start of care for 10/23/24 and is requesting a start of care on 10/26/24. Please let us know if you agree with this start of care date. We are unable to proceed without your agreement to the change in SOC of date. Thank you, NEHAL Ferreira Ludmila, LPN 10/21/2024 3:12 PM Signed Per secure [employer] chat, provider agreed to SOC delay. Barbara Simmons LPN Allergies As of Date: 10/21/2024 Noted Allergy Reaction VICODIN (HYDROCODONE-ACETAMINO PHE*09/23/2007 11 - Vomiting BALSAM 115 09/23/2007 BALSAM JUAN 09/10/2022 16 - Unknown BARIUM SULFATE 05/01/2023 16 - Unknown BENADRYL ALLERGY DECONGESTANT 05/01/2023 9 - Itching BENADRYL (DIPHENHYDRAMINE HCL) 09/23/2007 2 - Rash 9 - Itching CODEINE 09/23/2007 11 - Vomiting 14 - Other: See Comments LISINOPRIL 05/26/2008 15 - Contraindication-Medic al [facility]* Comments: Acute renal failure MOLD 09/23/2007 NSAIDS (NON-STEROIDAL ANTI-INFLAM*09/13/2012 14 - Other: See Comments Comments: Unable to take nsaids after having gastric bypass. PENICILLINS 09/23/2007 10 - Anaphylaxis SEASONAL ALLERGIES 12/14/2008 14 - Other: See Comments Comments: Nose runs, sneezing... TETRACYCLINE 09/23/2007 2 - Rash VANILLA EXTRACT 09/23/2007 VANILLA EXTRACT FLAVOR 09/10/2022 16 - Unknown Date Reviewed: 10/20/2024 Reviewed by: Efra Box MA - Fully Assessed Reason for Visit: Home Care [4073] Cmt: SOC delay request / APPROVAL NEEDED Prescriptions as of 10/26/2024 - b complex, c, folic acid 1 mg renal vitamins (RENAL CAPS) 1 mg capsule Take 1 capsule by mouth three times a day before meals. Uncertain of the name - albuterol HFA (PROVENTIL HFA, VENTOLIN HFA) 90 mcg/actuation inhaler Inhale 2 puffs as instructed every 2 hours as needed for wheezing/shortness of breath (night time). - fluticasone (FLONASE) 50 mcg/actuation nasal spray Use 2 sprays in each nostril once daily. Rinse mouth after use. - ondansetron orally disintegrating (ZOFRAN ODT) 4 mg disintegrating tablet Take 1 tablet by mouth every 8 hours as needed for nausea/vomiting. - torsemide (DEMADEX) 100 mg tablet Take 100 mg by mouth once daily. - pregabalin (LYRICA) 25 mg capsule Take 2 capsules by mouth daily at bedtime for 180 days. - CPAP/BIPAP/OTHER APAP 5-20 cmH2O [facility] - Blood-Glucose Meter (ONETOUCH VERIO [...] - Blood-Glucose Meter,Continuous (FREESTYLE FESTUS 3 READER) [facility] Dispense one reader kit. E11.9 DIALYSIS PATIENT [...] pills daily 3X/week -- Per diaylsis - NIFEdipine ER (PROCARDIA XL) 30 mg [...] 5,000 Units by mouth twice daily. - Lkopplgn-Fb-Qia-Fe-FA ( VITAMIN) ORAL Tab Take 1 tablet by mouth once daily. Meds Comments as of 11/28/2017: Pt states all meds were just gone over. Did not go over meds. Swathi Haddad Ma November 28, 2017 Problem List As Of Date 10/21/2024 Noted Resolved Acute gastritis [K29.00] 12/16/2007 08/04/2022 DM w/o complication type II, uncontrolled [IMO0*03/09/2008 12/07/2014 Routine gynecological examination [Z01.419] 03/09/2008 04/16/2017 Class: Chronic OBESITY NOS [E66.9] 03/09/2008 Acute anemia [D64.9] 03/09/2008 Background diabetic retinopathy (HCC) [E11.3299]03/09/2008 Asthma [J45.909] 03/09/2008 DIABETIC FOOT ULCER [L97.509] 03/09/2008 04/16/2017 CHOLELITHIASIS NOS [K80.20] 03/09/2008 Bipolar disorder, unspecified (HCC) [F31.9] 03/09/2008 Essential hypertension, marisa (more content not included)... Normal [facility] CNOVon 10-20-2024 CNOV Office Visit (FAMPWS ) Margareth GONZALEZ ([id number]) 1965 F [place] Date Time Provider Department 10/20/24 2:40 PM SURY GONZALEZ During your visit today, we recorded the following information about you: Pulse Blood pressure Weight 100/minute 128/66 81.4 kg Sury Gonzalez APRN.SALOONKEEPER 10/20/2024 3:33 PM Signed This is a 59 year old female who presents today with: No chief complaint on file. HISTORY OF PRESENT ILLNESS: Margareth Gonzalez is a 59 year old female. No chief complaint on file. Arnold Gonzalez is a 59-year-old female with a history of COPD, CASSIE, GERD, IBS, and spinal stenosis, presenting for evaluation of dyspnea, chest pain, and back pain. Dyspnea: - Dyspnea primarily at night; improves during the day with activity. - Associated with mucus production; uses albuterol inhaler Q4H PRN with some relief. - Difficulty using CPAP due to facial pain after 2 hours of use. - Reports SpO2 levels dropping to 80% at night; SpO2 levels were 100% when on oxygen in the hospital. - Denies fever or chills. - Recent hospitalization for pneumonia. - Denies current wheezing; occasional cough. - Denies chunky breathing this week. Chest Pain: - Intermittent chest pain described as like right here where they set the elephant on you. - Pain occurs when lying down at night and upon waking in the morning. - Aggravated by breathing; Tylenol provides minimal relief. - Denies heart racing or swelling in feet. Back Pain: - Believes pain is due to spinal stenosis acting up again. - Pain radiates down legs, up back, into the back of the neck. - Uses heating pad, TENS unit, and Bengay with some relief. - Requests home therapy. - Taking Cymbalta; inquires about increasing dosage for pain management. - Out of Lyrica, which previously helped with restless legs. CASSIE: - Difficulty using CPAP due to facial pain after 2 hours of use. - Reports SpO2 levels dropping to 80% at night; SpO2 levels were 100% when on oxygen in the hospital. - Denies current wheezing; occasional cough. - Denies chunky breathing this week. COPD: - Recent hospitalization for pneumonia. - Denies current wheezing; occasional cough. - Denies chunky breathing this week. GERD: - Chronic nausea and vomiting attributed to GERD and IBS. IBS: - Currently experiencing constipation, attributed to recent morphine use in the hospital. - Taking stool softeners; requests a laxative. Vision Changes: - Intermittent blurry vision; has an eye doctor. Tremors: - Reports benign idiopathic tremors. Weight Loss: - Reports ongoing weight loss, which is acceptable to her. Mental Health: - Reports low energy and interest in activities. - Denies suicidal ideation; jokingly mentions homicidal ideation. - Taking Cymbalta for mental health management. PAST MEDICAL HISTORY: PAST MEDICAL HISTORY Diagnosis Date Acute gastritis without mention of hemorrhage Allergic rhinitis Anaphylaxis Anemia Asthma ([facility]) Back pain Benign essential tremor Bipolar I disorder, most recent episode (or current) unspecified sectrum Bone mass Candidiasis, intertrigo Chronic kidney disease Contraceptive management Depression Diabetes ([facility]) Diarrhea DVT, lower extremity ([facility]) 08/2014 Right leg (6) Esophagitis ESRD (end stage renal disease) ([facility]) 07/03/2022 Facial fracture due to fall ([facility]) Fatigue Fibromyalgia Fracture Fracture of shaft of fibula GERD (gastroesophageal reflux disease) HLD (hyperlipidemia) on tricor Hyperlipidemia Hypertension Hypomagnesemia Hypopotassemia IBS (irritable bowel syndrome) Insomnia Intertrigo Knee pain Morbid obesity ([facility]) 03/11/2011 Myalgia Nausea Neck pain Neuropathy [...] AND curettage EGD TRANSORAL BIOPSY SINGLE/MULTIPLE 12/16/2007 ESOPHAGOGASTRODUODENOS COPY TRANSORAL DIAGNOSTIC age 14 EGD LAPAROSCOPIC APPENDECTOMY 05/16/2011 MIDLINE INSERTION/CONSULT 07/29/2012 Lap Paul-en-Y gastric bypass PAST MARA (more content not included)... Normal [facility] Kesha 10-20-2024 BO Telephone (SLEWST) Margareth GONZALEZ ([id number]) 1965 F [place] Date Time Provider Department 10/20/24 ALONDRA CHUNG During your visit today, we recorded the following information about you: Alondra Chung APRN.NOY 10/20/2024 3:36 PM Signed I received msg from primary care that pt is out of pregabalin but I wrote rx last month x 6 mos. Please let pt know. Alondra Chung APRN.Nataly Sims LPN 10/21/2024 10:02 AM Signed Yes. RX sent to [facility] on 09/12/24 for 180 capsules and 1 refill. Should take her to March 2025. NEHAL Groves Rebecca, APRN.NOY 10/21/2024 11:02 AM Signed Thanks. Was pt notified? Alondra Chung APRN.Nataly Sims LPN 10/21/2024 2:26 PM Signed My Chart message sent due no working phone. NEHAL Groves Barbara, LPN 10/25/2024 9:51 AM Signed TC to Pt sister. Pt is in the hospital for breathing problems. She will tell Pt the message. Nataly Burns LPN Allergies As of Date: 10/20/2024 Noted Allergy Reaction VICODIN (HYDROCODONE-ACETAMINO PHE*09/23/2007 11 - Vomiting BALSAM 115 09/23/2007 BALSAM JUAN 09/10/2022 16 - Unknown BARIUM SULFATE 05/01/2023 16 - Unknown BENADRYL ALLERGY DECONGESTANT 05/01/2023 9 - Itching BENADRYL (DIPHENHYDRAMINE HCL) 09/23/2007 2 - Rash 9 - Itching CODEINE 09/23/2007 11 - Vomiting 14 - Other: See Comments LISINOPRIL 05/26/2008 15 - Contraindication-Medic al [facility]* Comments: Acute renal failure MOLD 09/23/2007 NSAIDS (NON-STEROIDAL ANTI-INFLAM*09/13/2012 14 - Other: See Comments Comments: Unable to take nsaids after having gastric bypass. PENICILLINS 09/23/2007 10 - Anaphylaxis SEASONAL ALLERGIES 12/14/2008 14 - Other: See Comments Comments: Nose runs, sneezing... TETRACYCLINE 09/23/2007 2 - Rash VANILLA EXTRACT 09/23/2007 VANILLA EXTRACT FLAVOR 09/10/2022 16 - Unknown Date Reviewed: 10/20/2024 Reviewed by: Efra Box MA - Fully Assessed Prescriptions as of 10/25/2024 - b complex, c, folic acid 1 mg renal vitamins (RENAL CAPS) 1 mg capsule Take 1 capsule by mouth three times a day before meals. Uncertain of the name - albuterol HFA (PROVENTIL HFA, VENTOLIN HFA) 90 mcg/actuation inhaler Inhale 2 puffs as instructed every 2 hours as needed for wheezing/shortness of breath (night time). - fluticasone (FLONASE) 50 mcg/actuation nasal spray Use 2 sprays in each nostril once daily. Rinse mouth after use. - ondansetron orally disintegrating (ZOFRAN ODT) 4 mg disintegrating tablet Take 1 tablet by mouth every 8 hours as needed for nausea/vomiting. - torsemide (DEMADEX) 100 mg tablet Take 100 mg by mouth once daily. - pregabalin (LYRICA) 25 mg capsule Take 2 capsules by mouth daily at bedtime for 180 days. - CPAP/BIPAP/OTHER APAP 5-20 cmH2O [facility] - Blood-Glucose Meter (ONETOUCH VERIO [...] - Blood-Glucose Meter,Continuous (FREESTYLE FESTUS 3 READER) [facility] Dispense one reader kit. E11.9 DIALYSIS PATIENT [...] pills daily 3X/week -- Per diaylsis - NIFEdipine ER (PROCARDIA XL) 30 mg [...] 5,000 Units by mouth twice daily. - [place]-Js-Fwb-Fe-FA ( VITAMIN) ORAL Tab Take 1 tablet by mouth once daily. Meds Comments as of 11/28/2017: Pt states all meds were just gone over. Did not go over meds. Swathi Haddad Ma November 28, 2017 Problem List As Of Date 10/20/2024 Noted Resolved Acute gastritis [K29.00] 12/16/2007 08/04/2022 DM w/o complication type II, uncontrolled [IMO0*03/09/2008 12/07/2014 Routine gynecological examination [Z01.419] 03/09/2008 04/16/2017 Class: Chronic OBESITY NOS [E66.9] 03/09/2008 Acute anemia [D64.9] 03/09/2008 Background diabetic retinopathy (HCC) [E11.3299]01 (more content not included)... Normal [facility] [place] Absolute lymphocyte countOrd ered By: Hipolito Shepard on 10-13-2024 Lymphocytes Auto (Unsp spec) [#/Vol] 1.11 10*3/uL 0.83-4.51 [facility] Absolute neutrophil countOrd ered By: Hipolito Shepard on 10-13-2024 Neutrophils (Bld) [#/Vol] 4.0 10*3/uL 2.0-7.7 [facility] Anion gap in Serum or Plasma Ordered By: Hipolito Shepard on 10-13-2024 Anion gap [Moles/Vol] 20 mmol/L High 5-15 [facility] Automated lymphocyte count a s percentage of total leukocytesOrdered By: Hipolito Shepard on 10-13-2024 Lymphocytes/100 WBC Auto (Unsp spec) 19.9 % 19-41 [facility] BUN/creatinine ratioOrdered By: Hipolito Shepard on 10-13-2024 Urea nitrogen/Creatinine [Mass ratio] 8.5 mg/mg Low 10-20 [facility] Basic Metabolic Profile (BMP )on 10-13-2024 BUN/CRE 8.5 RATIO Low 10-20 [facility] Comment on above: Performed By: #### L 100.0100, L500.2500 ####[facility] [address] [facility] [address] Calcium [Mass/Vol] 9.3 mg/dL Normal 7.6-11.0 [facility] Comment on above: Performed By: #### L 100.0100, L500.2500 ####[facility] [address] [place], [address] Chloride [Moles/Vol] 87 mmol/L Low 98-108 [facility] Comment on above: Performed By: #### L 100.0100, L500.2500 ####[facility] [address] [place], [address] CO2 [Moles/Vol] 19.6 mmol/L Low 21.0-32.0 [facility] Comment on above: Performed By: #### L 100.0100, L500.2500 ####[facility] [address] [place], [address] Creatinine [Mass/Vol] 8.04 mg/dL Invalid Interpretation Code 0.70-1.20 [facility] Comment on above: Result Comment: Crit ical Result(s) Called at 0838: TO [facility] by:KCLAPPER??Results read back by same. Performed By: #### L 100.0100, L500.2500 ####[facility] [address] [place], [address] ECRCL 8.51 ml/min Invalid Interpretation Code 50-250 [facility] Comment on above: Performed By: #### L 100.0100, L500.2500 ####[facility] [address] [place], [address] GAP 20 High 5-15 [facility] Comment on above: Performed By: #### L 100.0100, L500.2500 ####[facility] [address] [place], [address] GFR/1.73 sq M.predicted among non-blacks MDRD (S/P/Bld) [Vol rate/Area] 5 mL/min/{1.73_m2} Low >60 [facility] Comment on above: Result Comment: mL/m in/1.73m2 CKD-EPI Creatinine Equation (2020) Performed By: #### L 100.0100, L500.2500 ####[facility] [address] [place], [address] Glucose [Mass/Vol] 218 mg/dL High 70-99 [facility] Comment on above: Performed By: #### L 100.0100, L500.2500 ####[facility] [address] [place], [address] Potassium [Moles/Vol] 4.6 mmol/L Normal 3.3-5.1 [facility] Comment on above: Performed By: #### L 100.0100, L500.2500 ####[facility] [address] [place], [address] Sodium [Moles/Vol] 127 mmol/L Low 133-145 [facility] Comment on above: Performed By: #### L 100.0100, L500.2500 ####[facility] [address] [place], [address] Urea nitrogen [Mass/Vol] 68 mg/dL High 4-19 [facility] Comment on above: Performed By: #### L 100.0100, L500.2500 ####[facility] [address] [place], [address] Basophil percentageOrdered B y: Hipolito Shepard on 10-13-2024 Basophils/100 WBC (Bld) 0.0 % 0-1 [facility] Bedside Glucoseon 10-13-2024 FINGERSTICK GLU 204 mg/dL High 74-106 [facility] Comment on above: Result Comment: SONJA GEMENT OF PATIENT CARE PER NURSING PROTOCOL Performed By: #### L 501.080 ####[facility] [address] [place], [address] FINGERSTICK GLU 224 mg/dL High 74-106 [facility] Comment on above: Result Comment: SONJA GEMENT OF PATIENT CARE PER NURSING PROTOCOL Performed By: #### L 501.080 ####[facility] [address] [place], [address] CBC W/Diff, Automatedon 09-30 Absolute Lymph 1.11 X10 3/uL Normal 0.83-4.51 [facility] Comment on above: Performed By: #### L 100.0100, L500.2500 ####[facility] [address] [place], [address] Absolute Neut 4.0 X10 3/uL Normal 2.0-7.7 [facility] Comment on above: Performed By: #### L 100.0100, L500.2500 ####[facility] [address] [place], [address] Basophils/100 WBC (Bld) 0.0 % Normal 0-1 [facility] Comment on above: Performed By: #### L 100.0100, L500.2500 ####[facility] [address] [place], [address] Eosinophils/100 WBC (Bld) 0.4 % Normal 0-5 [facility] Comment on above: Performed By: #### L 100.0100, L500.2500 ####[facility] [address] [place], [address] Erythrocyte distribution width (RBC) [Ratio] 13.2 % Normal 11.6-14.6 [facility] Comment on above: Performed By: #### L 100.0100, L500.2500 ####[facility] [address] [place], [address] Hematocrit (Bld) [Volume fraction] 27.9 % Low 37-47 [facility] Comment on above: Performed By: #### L 100.0100, L500.2500 ####[facility] [address] [place], [address] Hemoglobin (Bld) [Mass/Vol] 9.1 g/dL Low 12.0-15.0 [facility] Comment on above: Performed By: #### L 100.0100, L500.2500 ####[facility] [address] [place], [address] IG% 0.200 Normal 0.0-0.9 [facility] Comment on above: Result Comment: IG% - Immature Granulocytes (promyelocytes, myelocytes andmetamyelocytes) > 1% indicates that a LEFT SHIFT is Present. Performed By: #### L 100.0100, L500.2500 ####[facility] [address] [place], [address] Lymphocytes/100 WBC (Bld) 19.9 % Normal 19-41 [facility] Comment on above: Performed By: #### L 100.0100, L500.2500 ####[facility] [address] [place], [address] MCH (RBC) [Entitic mass] 29.6 pg Normal 27.0-32.0 [facility] Comment on above: Performed By: #### L 100.0100, L500.2500 ####[facility] [address] [place], [address] MCHC (RBC) [Mass/Vol] 32.6 g/dL Normal 32-36 [facility] Comment on above: Performed By: #### L 100.0100, L500.2500 ####[facility] [address] [place], [address] MCV (RBC) [Entitic vol] 90.9 fL Normal 81-99 [facility] Comment on above: Performed By: #### L 100.0100, L500.2500 ####[facility] [address] [place], [address] Monocytes/100 WBC (Bld) 7.9 % Normal 0-10 [facility] Comment on above: Performed By: #### L 100.0100, L500.2500 ####[facility] [address] [place], [address] Neutrophils/100 WBC (Bld) 71.6 % High 47-70 [facility] Comment on above: Performed By: #### L 100.0100, L500.2500 ####[facility] [address] [place], [address] Nucleated RBC (Bld) [#/Vol] 0 10*3/uL Normal 0-5 [facility] Comment on above: Performed By: #### L 100.0100, L500.2500 ####[facility] [address] [place], [address] Platelet mean volume (Bld) [Entitic vol] 10.5 fL Normal 6.2-12.0 [facility] Comment on above: Performed By: #### L 100.0100, L500.2500 ####[facility] [address] [place], [address] Platelets (Bld) [#/Vol] 141 10*3/uL Low 150-450 [facility] Comment on above: Performed By: #### L 100.0100, L500.2500 ####[facility] [address] [place], [address] RBC (Bld) [#/Vol] 3.07 10*6/uL Low 4.2-5.[address] [facility] Comment on above: Performed By: #### L 100.0100, L500.2500 ####[facility] [address] [place], [address] RDW SD 43.5 fl Normal 35.1-43.9 [facility] Comment on above: Performed By: #### L 100.0100, L500.2500 ####[facility] [address] [place], [address] WBC (Bld) [#/Vol] 5.6 10*3/uL Normal 4.4-11.0 [facility] Comment on above: Performed By: #### L 100.0100, L500.2500 ####[facility] [address] [place], [address] Carbon dioxide, total [Moles /volume] in Central venous bloodOrdered By: Hipolito Shepard on 10-13-2024 CO2 [Moles/Vol] 19.6 mmol/L Low 21.0-32.0 [facility] Chloride assayOrdered By: Rupal joseernst Shepard on 10-13-2024 Chloride [Moles/Vol] 87 mmol/L Low 98-108 [facility] Discharge Instructionon 09-30 Discharge Instruction Normal [facility] Eosinophil percentageOrdered By: Hipolito Shepard on 10-13-2024 Eosinophils/100 WBC (Bld) 0.4 % 0-5 [facility] Erythrocyte distribution wid th ratioOrdered By: Hipolito Shepard on 10-13-2024 Erythrocyte distribution width (RBC) [Ratio] 13.2 % 11.6-14.6 [facility] Erythrocyte distribution wid th standard deviationOrdered By: Hipolito Shepard on 10-13-2024 Erythrocyte distribution width (RBC) [Ratio] 43.5 fl 35.1-43.9 [facility] Glomerular filtration rate ( GFR) estimation/1.73 sq m using serum, plasma, or whole bOrdered By: Hipolito Shepard on 10-13-2024 GFR/1.73 sq M.predicted among non-blacks MDRD (S/P/Bld) [Vol rate/Area] 5 mL/min/{1.73_m2} Low >60 [facility] Comment on above: mL/min/1.73m2 CKD-EP I Creatinine Equation (2020) [facility] deOrdered By: Hipolito Shepard on 10-13-2024 Glucose [Mass/Vol] 204 mg/dL High 74-106 [facility] Comment on above: MANAGEMENT OF PATIEN T CARE PER NURSING PROTOCOL Hematocrit Auto (Bld) [Volum e fraction]Ordered By: Hipolito Shepard on 10-13-2024 Hematocrit (Bld) [Volume fraction] 27.9 % Low 37-47 [facility] Hemoglobin measurementOrdere d By: Hipolito Shepard on 10-13-2024 Hemoglobin (Bld) [Mass/Vol] 9.1 g/dL Low 12.0-15.0 [facility] Immature granulocytes/100 WB C Auto (Bld)Ordered By: Hipolito Shepard on 10-13-2024 Immature granulocytes/100 WBC (Bld) 0.200 % 0.0-0.9 [facility] Comment on above: IG% - Immature Granu locytes (promyelocytes, myelocytes and metamyelocytes) > 1% indicates that a LEFT SHIFT is Present. MCV (mean corpuscular volume ) determinationOrdered By: Hipolito Shepard on 10-13-2024 MCV (RBC) [Entitic vol] 90.9 fL 81-99 [facility] Mean corpuscular hemoglobin (MCH) determinationOrdered By: Hipolito Shepard on 10-13-2024 MCH (RBC) [Entitic mass] 29.6 pg 27.0-32.0 [facility] Mean corpuscular hemoglobin concentration (MCHC) determinationOrdered By: Hipolito Shepard on 10-13-2024 MCHC (RBC) [Mass/Vol] 32.6 g/dL 32-36 [facility] Mean platelet volume determi nationOrdered By: Hipolito Shepard on 10-13-2024 Platelet mean volume (Bld) [Entitic vol] 10.5 fL 6.2-12.0 [facility] Monocyte percentageOrdered B y: Hipolito Shepard on 10-13-2024 Monocytes/100 WBC (Bld) 7.9 % 0-10 [facility] Neutrophil percentageOrdered By: Hipolito Shepard on 10-13-2024 Neutrophils/100 WBC (Bld) 71.6 % High 47-70 [facility] Nucleated red blood cell per centageOrdered By: Hipolito Shepard on 10-13-2024 Nucleated RBC/100 WBC (Bld) [Ratio] 0 % 0-5 [facility] Platelet countOrdered By: Rupal Shepard on 10-13-2024 Platelets (Bld) [#/Vol] 141 10*3/uL Low 150-450 [facility] Potassium measurement (mass/ volume)Ordered By: Hipolito Shepard on 10-13-2024 Potassium (Unsp spec) [Mass/Vol] 4.6 mmol/L 3.3-5.1 [facility] RBC Auto (Bld) [#/Vol]Ordere d By: Hipolito Shepard on 10-13-2024 RBC (Bld) [#/Vol] 3.07 10*6/uL Low 4.2-5.[address] [facility] Serum creatinine measurement (mass/volume)Ordered By: Hipolito Shepard on 10-13-2024 Creatinine [Mass/Vol] 8.04 mg/dL High 0.70-1.20 [facility] Comment on above: Critical Result(s) C alled at 0838: TO [facility] by: ISABEL Results read back by same. Serum glucose measurement (m ass/volume)Ordered By: Hipolito Shepard on 10-13-2024 Glucose [Mass/Vol] 218 mg/dL High 70-99 [facility] Serum or plasma calcium joya urement (mass/volume)Ordered By: Hipolito Shepard on 10-13-2024 Calcium [Mass/Vol] 9.3 mg/dL 7.6-11.0 [facility] Serum or plasma urea nitroge n measurement (mass/volume)Ordered By: Hipolito Shepard on 10-13-2024 Urea nitrogen [Mass/Vol] 68 mg/dL High 4-19 [facility] Sodium levelOrdered By: Brayan Shepard on 10-13-2024 Sodium [Moles/Vol] 127 mmol/L Low 133-145 [facility] Urine Cultureon 10-13-2024 URC Normal [facility] Comment on above: Performed By: #### M 100.2200 ####[facility] [address] [facility] [place], [place], [id number] White blood cell (WBC) count Ordered By: Hipolito Shepard on 10-13-2024 WBC (Bld) [#/Vol] 5.6 10*3/uL 4.4-11.0 [facility] Basic Metabolic Profile (BMP )on 10-12-2024 BUN/CRE 8.7 RATIO Low 10-20 [facility] Comment on above: Performed By: #### L 500.2500, L100.0100 ####[facility] [address] [facility] [place], [address] Calcium [Mass/Vol] 9.6 mg/dL Normal 7.6-11.0 [facility] Comment on above: Performed By: #### L 500.2500, L100.0100 ####[facility] [address] [place], [address] Chloride [Moles/Vol] 88 mmol/L Low 98-108 [facility] Comment on above: Performed By: #### L 500.2500, L100.0100 ####[facility] [address] [place], [address] CO2 [Moles/Vol] 17.6 mmol/L Low 21.0-32.0 [facility] Comment on above: Performed By: #### L 500.2500, L100.0100 ####[facility] [address] [place], [address] Creatinine [Mass/Vol] 6.43 mg/dL High 0.70-1.20 [facility] Comment on above: Performed By: #### L 500.2500, L100.0100 ####[facility] [address] [place], [address] ECRCL 10.54 ml/min Low 50-250 [facility] Comment on above: Performed By: #### L 500.2500, L100.0100 ####[facility] [address] [place], [address] GAP 22 High 5-15 [facility] Comment on above: Performed By: #### L 500.2500, L100.0100 ####[facility] [address] [place], [address] GFR/1.73 sq M.predicted among non-blacks MDRD (S/P/Bld) [Vol rate/Area] 7 mL/min/{1.73_m2} Low >60 [facility] Comment on above: Result Comment: mL/m in/1.73m2 CKD-EPI Creatinine Equation (2020) Performed By: #### L 500.2500, L100.0100 ####[facility] [address] [place], [address] Glucose [Mass/Vol] 238 mg/dL High 70-99 [facility] Comment on above: Performed By: #### L 500.2500, L100.0100 ####[facility] [address] [place], [address] Potassium [Moles/Vol] 5.1 mmol/L Normal 3.3-5.1 [facility] Comment on above: Performed By: #### L 500.2500, L100.0100 ####[facility] [address] [place], [address] Sodium [Moles/Vol] 128 mmol/L Low 133-145 [facility] Comment on above: Performed By: #### L 500.2500, L100.0100 ####[facility] [address] [place], [address] Urea nitrogen [Mass/Vol] 56 mg/dL High 4-19 [facility] Comment on above: Performed By: #### L 500.2500, L100.0100 ####[facility] [address] [place], [address] Bedside Glucoseon 10-12-2024 FINGERSTICK GLU 314 mg/dL High 74-106 [facility] Comment on above: Result Comment: SONJA GEMENT OF PATIENT CARE PER NURSING PROTOCOL Performed By: #### L 501.080 ####[facility] [address] [place], [address] FINGERSTICK GLU 347 mg/dL High 74-106 [facility] Comment on above: Result Comment: SONJA GEMENT OF PATIENT CARE PER NURSING PROTOCOL Performed By: #### L 501.080 ####[facility] [address] [place], [address] FINGERSTICK GLU 320 mg/dL High 74-106 [facility] Comment on above: Result Comment: SONJA GEMENT OF PATIENT CARE PER NURSING PROTOCOL Performed By: #### L 501.080 ####[facility] [address] [place], [address] FINGERSTICK GLU 228 mg/dL High 74-106 [facility] Comment on above: Result Comment: SONJA GEMENT OF PATIENT CARE PER NURSING PROTOCOL Performed By: #### L 501.080 ####[facility] [address] [place], [address] FINGERSTICK GLU 163 mg/dL High 74-106 [facility] Comment on above: Result Comment: SONJA GEMENT OF PATIENT CARE PER NURSING PROTOCOL Performed By: #### L 501.080 ####[facility] [address] [place], [address] CBC W/Diff, Automatedon 09-30-2024 Absolute Lymph 0.30 X10 3/uL Low 0.83-4.51 [facility] Comment on above: Performed By: #### L 500.2500, L100.0100 ####[facility] [address] [place], [address] Absolute Neut 5.0 X10 3/uL Normal 2.0-7.7 [facility] Comment on above: Performed By: #### L 500.2500, L100.0100 ####[facility] [address] [place], [address] Basophils/100 WBC (Bld) 0.0 % Normal 0-1 [facility] Comment on above: Performed By: #### L 500.2500, L100.0100 ####[facility] [address] [place], [address] Eosinophils/100 WBC (Bld) 0.0 % Normal 0-5 [facility] Comment on above: Performed By: #### L 500.2500, L100.0100 ####[facility] [address] [place], [address] Erythrocyte distribution width (RBC) [Ratio] 13.3 % Normal 11.6-14.6 [facility] Comment on above: Performed By: #### L 500.2500, L100.0100 ####[facility] [address] [place], [address] Hematocrit (Bld) [Volume fraction] 28.8 % Low 37-47 [facility] Comment on above: Performed By: #### L 500.2500, L100.0100 ####[facility] [address] [place], [address] Hemoglobin (Bld) [Mass/Vol] 9.5 g/dL Low 12.0-15.0 [facility] Comment on above: Performed By: #### L 500.2500, L100.0100 ####[facility] [address] [place], [address] IG% 0.600 Normal 0.0-0.9 [facility] Comment on above: Result Comment: IG% - Immature Granulocytes (promyelocytes, myelocytes andmetamyelocytes) > 1% indicates that a LEFT SHIFT is Present. Performed By: #### L 500.2500, L100.0100 ####[facility] [address] [place], [address] Lymphocytes/100 WBC (Bld) 5.6 % Low 19-41 [facility] Comment on above: Performed By: #### L 500.2500, L100.0100 ####[facility] [address] [place], [address] MCH (RBC) [Entitic mass] 30.2 pg Normal 27.0-32.0 [facility] Comment on above: Performed By: #### L 500.2500, L100.0100 ####[facility] [address] [place], [address] MCHC (RBC) [Mass/Vol] 33.0 g/dL Normal 32-36 [facility] Comment on above: Performed By: #### L 500.2500, L100.0100 ####[facility] [address] [place], [address] MCV (RBC) [Entitic vol] 91.4 fL Normal 81-99 [facility] Comment on above: Performed By: #### L 500.2500, L100.0100 ####[facility] [address] [place], [address] Monocytes/100 WBC (Bld) 1.7 % Normal 0-10 [facility] Comment on above: Performed By: #### L 500.2500, L100.0100 ####[facility] [address] [place], [address] Neutrophils/100 WBC (Bld) 92.1 % High 47-70 [facility] Comment on above: Performed By: #### L 500.2500, L100.0100 ####[facility] [address] [place], [address] Nucleated RBC (Bld) [#/Vol] 0 10*3/uL Normal 0-5 [facility] Comment on above: Performed By: #### L 500.2500, L100.0100 ####[facility] [address] [place], [address] Platelet mean volume (Bld) [Entitic vol] 10.9 fL Normal 6.2-12.0 [facility] Comment on above: Performed By: #### L 500.2500, L100.0100 ####[facility] [address] [place], [address] Platelets (Bld) [#/Vol] 151 10*3/uL Normal 150-450 [facility] Comment on above: Performed By: #### L 500.2500, L100.0100 ####[facility] [address] [place], [address] RBC (Bld) [#/Vol] 3.15 10*6/uL Low 4.2-5.[address] [facility] Comment on above: Performed By: #### L 500.2500, L100.0100 ####[facility] [address] [place], [address] RDW SD 43.8 fl Normal 35.1-43.9 [facility] Comment on above: Performed By: #### L 500.2500, L100.0100 ####[facility] [address] [place], [address] WBC (Bld) [#/Vol] 5.4 10*3/uL Normal 4.4-11.0 [facility] Comment on above: Performed By: #### L 500.2500, L100.0100 ####[facility] [address] [place], [address] Phosphoruson 10-12-2024 Phosphate [Mass/Vol] 6.1 mg/dL High 2.7-4.5 [facility] Comment on above: Performed By: #### L 501.2300 ####[facility] [address] [place], [address] Absolute lymphocyte countOrd ered By: Son Quiroga on 10-11-2024 Lymphocytes Auto (Unsp spec) [#/Vol] 0.27 10*3/uL Low 0.83-4.51 [facility] Absolute neutrophil countOrd ered By: Son Quiroga on 10-11-2024 Neutrophils (Bld) [#/Vol] 3.6 10*3/uL 2.0-7.7 [facility] Anion gap in Serum or Plasma Ordered By: Son Quiroga on 10-11-2024 Anion gap [Moles/Vol] 26 mmol/L High 5-15 [facility] Automated lymphocyte count a s percentage of total leukocytesOrdered By: Son Napierenzo on 10-11-2024 Lymphocytes/100 WBC Auto (Unsp spec) 6.9 % Low 19-41 [facility] BUN/creatinine ratioOrdered By: Son Napierenzo on 10-11-2024 Urea nitrogen/Creatinine [Mass ratio] 8.3 mg/mg Low 10-20 [facility] Basophil percentageOrdered B y: Son Napierenzo on 10-11-2024 Basophils/100 WBC (Bld) 0.0 % 0-1 [facility] Bedside Glucoseon 10-11-2024 FINGERSTICK GLU 232 mg/dL High 74-106 [facility] Comment on above: Result Comment: SONJA GEMENT OF PATIENT CARE PER NURSING PROTOCOL Performed By: #### L 501.080 ####[facility] [address] [facility] [address] FINGERSTICK GLU 422 mg/dL High 74-106 [facility] Comment on above: Result Comment: SONJA GEMENT OF PATIENT CARE PER NURSING PROTOCOL Performed By: #### L 501.080 ####[facility] [address] [facility] [address] FINGERSTICK GLU 163 mg/dL High 74-106 [facility] Comment on above: Result Comment: SONJA GEMENT OF PATIENT CARE PER NURSING PROTOCOL Performed By: #### L 501.080 ####[facility] [address] [facility] [address] FINGERSTICK GLU 329 mg/dL High 74-106 [facility] Comment on above: Result Comment: SONJA GEMENT OF PATIENT CARE PER NURSING PROTOCOL Performed By: #### L 501.080 ####[facility] [address] [facility] [address] FINGERSTICK GLU 324 mg/dL High 74-106 [facility] Comment on above: Result Comment: SONJA GEMENT OF PATIENT CARE PER NURSING PROTOCOL Performed By: #### L 501.080 ####[facility] [address] [place], [address] FINGERSTICK GLU 350 mg/dL High 74-106 [facility] Comment on above: Result Comment: SONJA VARGAS OF PATIENT CARE PER NURSING PROTOCOL Performed By: #### L 501.080 ####[facility] [address] [place], [address] Bilirubin, totalOrdered By: Son Quiroga on 10-11-2024 Bilirubin [Mass/Vol] 0.49 mg/dL 0.00-1.30 [facility] CBC W/Diff, Automatedon 09-30 Absolute Lymph 0.27 X10 3/uL Low 0.83-4.51 [facility] Comment on above: Performed By: #### L 500.4100, L100.0100, L500.4050, L501.2300 ####[facility] [address] [place], [address] Absolute Neut 3.6 X10 3/uL Normal 2.0-7.7 [facility] Comment on above: Performed By: #### L 500.4100, L100.0100, L500.4050, L501.2300 ####[facility] [address] [place], [address] Basophils/100 WBC (Bld) 0.0 % Normal 0-1 [facility] Comment on above: Performed By: #### L 500.4100, L100.0100, L500.4050, L501.2300 ####[facility] [address] [place], [address] Eosinophils/100 WBC (Bld) 0.0 % Normal 0-5 [facility] Comment on above: Performed By: #### L 500.4100, L100.0100, L500.4050, L501.2300 ####[facility] [address] [place], [address] Erythrocyte distribution width (RBC) [Ratio] 13.2 % Normal 11.6-14.6 [facility] Comment on above: Performed By: #### L 500.4100, L100.0100, L500.4050, L501.2300 ####[facility] [address] [place], [address] Hematocrit (Bld) [Volume fraction] 32.9 % Low 37-47 [facility] Comment on above: Performed By: #### L 500.4100, L100.0100, L500.4050, L501.2300 ####[facility] [address] [place], [address] Hemoglobin (Bld) [Mass/Vol] 11.0 g/dL Low 12.0-15.0 [facility] Comment on above: Performed By: #### L 500.4100, L100.0100, L500.4050, L501.2300 ####[facility] [address] [place], [address] IG% 0.800 Normal 0.0-0.9 [facility] Comment on above: Result Comment: IG% - Immature Granulocytes (promyelocytes, myelocytes andmetamyelocytes) > 1% indicates that a LEFT SHIFT is Present. Performed By: #### L 500.4100, L100.0100, L500.4050, L501.2300 ####[facility] [address] [place], [address] Lymphocytes/100 WBC (Bld) 6.9 % Low 19-41 [facility] Comment on above: Performed By: #### L 500.4100, L100.0100, L500.4050, L501.2300 ####[facility] [address] [place], [address] MCH (RBC) [Entitic mass] 30.3 pg Normal 27.0-32.0 [facility] Comment on above: Performed By: #### L 500.4100, L100.0100, L500.4050, L501.2300 ####[facility] [address] [place], [address] MCHC (RBC) [Mass/Vol] 33.4 g/dL Normal 32-36 [facility] Comment on above: Performed By: #### L 500.4100, L100.0100, L500.4050, L501.2300 ####[facility] [address] [place], [address] MCV (RBC) [Entitic vol] 90.6 fL Normal 81-99 [facility] Comment on above: Performed By: #### L 500.4100, L100.0100, L500.4050, L501.2300 ####[facility] [address] [place], [address] Monocytes/100 WBC (Bld) 1.0 % Normal 0-10 [facility] Comment on above: Performed By: #### L 500.4100, L100.0100, L500.4050, L501.2300 ####[facility] [address] [place], [address] Neutrophils/100 WBC (Bld) 91.3 % High 47-70 [facility] Comment on above: Performed By: #### L 500.4100, L100.0100, L500.4050, L501.2300 ####[facility] [address] [place], [address] Nucleated RBC (Bld) [#/Vol] 0 10*3/uL Normal 0-5 [facility] Comment on above: Performed By: #### L 500.4100, L100.0100, L500.4050, L501.2300 ####[facility] [address] [place], [address] Platelet mean volume (Bld) [Entitic vol] 10.3 fL Normal 6.2-12.0 [facility] Comment on above: Performed By: #### L 500.4100, L100.0100, L500.4050, L501.2300 ####[facility] [address] [place], [address] Platelets (Bld) [#/Vol] 152 10*3/uL Normal 150-450 [facility] Comment on above: Performed By: #### L 500.4100, L100.0100, L500.4050, L501.2300 ####[facility] [address] [place], [address] RBC (Bld) [#/Vol] 3.63 10*6/uL Low 4.2-5.[address] [facility] Comment on above: Performed By: #### L 500.4100, L100.0100, L500.4050, L501.2300 ####[facility] [address] [place], [address] RDW SD 43.2 fl Normal 35.1-43.9 [facility] Comment on above: Performed By: #### L 500.4100, L100.0100, L500.4050, L501.2300 ####[facility] [address] [place], [address] WBC (Bld) [#/Vol] 3.9 10*3/uL Low 4.4-11.0 [facility] Comment on above: Performed By: #### L 500.4100, L100.0100, L500.4050, L501.2300 ####[facility] [address] [place], [address] CDIFF (PCR)on 10-11-2024 CDIFF Is the patient receiving laxatives? N New/unexplained onset of 3 or more stools in past 24 hrs? Y Pending 027 027 NAP1-B1 Presumptive Negative *for epidemiolologic???use C. Diff PCR Negative- No toxigenic C. Diff Detected Normal [facility] Comment on above: Performed By: #### M 100.637, M100.0605, M100.6796 ####[facility] [address] [place], [address] Calculated very low density lipoprotein (VLDL) cholesterol measurementOrdered By: Son Quiroga on 10-11-2024 Calculated very low density lipoprotein (VLDL) cholesterol measurement 12 mg/dL 5-40 [facility] Carbon dioxide, total [Moles /volume] in Central venous bloodOrdered By: Son Quiroga on 10-11-2024 CO2 [Moles/Vol] 15.8 mmol/L Low 21.0-32.0 [facility] Chloride assayOrdered By: Farhat Quiroga on 10-11-2024 Chloride [Moles/Vol] 88 mmol/L Low 98-108 [facility] Clostridium difficile detect ion by polymerase chain reactionOrdered By: Son Quiroga on 10-11-2024 C. difficile DNA CAR+probe Ql (Unsp spec) [facility] Comprehensive Metabolic Prof ilon 10-11-2024 Albumin [Mass/Vol] 3.9 g/dL Normal 3.5-5.0 [facility] Comment on above: Performed By: #### L 500.4100, L100.0100, L500.4050, L501.2300 ####[facility] [address] [place], [address] Albumin/Globulin [Mass ratio] 1.5 {ratio} Normal 0.9-2.4 [facility] Comment on above: Performed By: #### L 500.4100, L100.0100, L500.4050, L501.2300 ####[facility] [address] [place], [address] ALK PHOS 76 U/L Normal 35-104 [facility] Comment on above: Performed By: #### L 500.4100, L100.0100, L500.4050, L501.2300 ####[facility] [address] [place], [address] ALT [Catalytic activity/Vol] 14 U/L Normal <=34 [facility] Comment on above: Performed By: #### L 500.4100, L100.0100, L500.4050, L501.2300 ####[facility] [address] [place], [address] AST [Catalytic activity/Vol] 27 U/L Normal <=31 [facility] Comment on above: Performed By: #### L 500.4100, L100.0100, L500.4050, L501.2300 ####[facility] [address] [place], [address] Bilirubin [Mass/Vol] 0.49 mg/dL Normal 0.00-1.30 [facility] Comment on above: Performed By: #### L 500.4100, L100.0100, L500.4050, L501.2300 ####[facility] [address] [place], [address] BUN/CRE 8.3 RATIO Low 10-20 [facility] Comment on above: Performed By: #### L 500.4100, L100.0100, L500.4050, L501.2300 ####[facility] [address] [place], [address] Calcium [Mass/Vol] 9.5 mg/dL Normal 7.6-11.0 [facility] Comment on above: Performed By: #### L 500.4100, L100.0100, L500.4050, L501.2300 ####[facility] [address] [place], [address] Chloride [Moles/Vol] 88 mmol/L Low 98-108 [facility] Comment on above: Performed By: #### L 500.4100, L100.0100, L500.4050, L501.2300 ####[facility] [address] [place], [address] CO2 [Moles/Vol] 15.8 mmol/L Low 21.0-32.0 [facility] Comment on above: Performed By: #### L 500.4100, L100.0100, L500.4050, L501.2300 ####[facility] [address] [place], [address] Creatinine [Mass/Vol] 8.71 mg/dL Invalid Interpretation Code 0.70-1.20 [facility] Comment on above: Result Comment: Crit ical Result(s) Called at 0615: by: JOSEPH CAMP. ??Results read back by same. Performed By: #### L 500.4100, L100.0100, L500.4050, L501.2300 ####[facility] [address] [place], [address] ECRCL 7.83 ml/min Invalid Interpretation Code 50-250 [facility] Comment on above: Performed By: #### L 500.4100, L100.0100, L500.4050, L501.2300 ####[facility] [address] [place], [address] GAP 26 High 5-15 [facility] Comment on above: Performed By: #### L 500.4100, L100.0100, L500.4050, L501.2300 ####[facility] [address] [place], [address] GFR/1.73 sq M.predicted among non-blacks MDRD (S/P/Bld) [Vol rate/Area] 5 mL/min/{1.73_m2} Low >60 [facility] Comment on above: Result Comment: mL/m in/1.73m2 CKD-EPI Creatinine Equation (2020) Performed By: #### L 500.4100, L100.0100, L500.4050, L501.2300 ####[facility] [address] [place], [address] Globulin (S) [Mass/Vol] 2.7 g/dL Normal 2.2-4.2 [facility] Comment on above: Performed By: #### L 500.4100, L100.0100, L500.4050, L501.2300 ####[facility] [address] [place], [address] Glucose [Mass/Vol] 291 mg/dL High 70-99 [facility] Comment on above: Performed By: #### L 500.4100, L100.0100, L500.4050, L501.2300 ####[facility] [address] [place], [address] Potassium [Moles/Vol] 5.4 mmol/L High 3.3-5.1 [facility] Comment on above: Performed By: #### L 500.4100, L100.0100, L500.4050, L501.2300 ####[facility] [address] [place], [address] Sodium [Moles/Vol] 129 mmol/L Low 133-145 [facility] Comment on above: Performed By: #### L 500.4100, L100.0100, L500.4050, L501.2300 ####[facility] [address] [place], [address] T PROT 6.6 g/dL Normal 5.9-8.4 [facility] Comment on above: Performed By: #### L 500.4100, L100.0100, L500.4050, L501.2300 ####[facility] [address] [place], [address] Urea nitrogen [Mass/Vol] 72 mg/dL High 4-19 [facility] Comment on above: Performed By: #### L 500.4100, L100.0100, L500.4050, L501.2300 ####[facility] [address] [place], [address] Consultation - Nephrologyon 10-11-2024 Consultation - Nephrology Normal [facility] ENTERIC PATHOGEN PANEL STOOL on 10-11-2024 EP PANEL Normal [facility] Comment on above: Performed By: #### M 100.637, M100.0605, M100.6796 ####[facility] [address] [place], [address] Electrocardiogram reportOrde red By: Dorene Plasencia on 10-11-[address] [facility] [address] [place] [address] 12 Lead EKG 10/10/24 1603 MR#: [id number] Acct: [id number] Name: Margareth GONZALEZ Rep #:[id number] : 1965 59 From: Dorene guan MD Attending Dr: Dr. Hipolito Shepard MD Status: ADM IN Ordering Dr: Jim Shah ate: 10/10/24 Location: [facility] Sex: F C Admitted: 10/10/24 Test Reason : SOB/CP Blood Pressure : */* mmHG Vent. Rate : 113 BPM Atrial Rate : 113 BPM P-R Int : 146 ms QRS Dur : 92 ms QT Int : 334 ms P-R-T Axes : 54 58 147 degrees QTcB Int : [address] & T wave abnormality, consider lateral ischemia Abnormal ECG Confirmed by Dorene Plasencia ([id number]), editor news LINDA PICKETT ([id number]) on 10/11/2024 11:43:00 AM Referred By: TB/AK Confirmed By: Dorene Plasencia 10/11/24 1143 Date _ Dorene Plasencia MD CC: Dr. Jim Shah DO; Dr. Hipolito Shepard MD; Dr. Ignacio Cheatham MD ~ Signed [facility] Other Phone: Eosinophil percentageOrdered By: Son Quiroga on 10-11-2024 Eosinophils/100 WBC (Bld) 0.0 % 0-5 [facility] Erythrocyte distribution wid th ratioOrdered By: Son Quiroga on 10-11-2024 Erythrocyte distribution width (RBC) [Ratio] 13.2 % 11.6-14.6 [facility] Erythrocyte distribution wid th standard deviationOrdered By: Son Quiroga on 10-11-2024 Erythrocyte distribution width (RBC) [Ratio] 43.2 fl 35.1-43.9 [facility] Glomerular filtration rate ( GFR) estimation/1.73 sq m using serum, plasma, or whole bOrdered By: Son Quiroga on 10-11-2024 GFR/1.73 sq M.predicted among non-blacks MDRD (S/P/Bld) [Vol rate/Area] 5 mL/min/{1.73_m2} Low >60 [facility] Comment on above: mL/min/1.73m2 CKD-EP I Creatinine Equation (2020) [facility] deOrdered By: Hipolito Shepard on 10-11-2024 Glucose [Mass/Vol] 163 mg/dL High 74-106 [facility] Comment on above: MANAGEMENT OF PATIEN T CARE PER NURSING PROTOCOL Hematocrit Auto (Bld) [Volum e fraction]Ordered By: Son Quiroga on 10-11-2024 Hematocrit (Bld) [Volume fraction] 32.9 % Low 37-47 [facility] Hemoglobin measurementOrdere d By: Son Quiroga on 10-11-2024 Hemoglobin (Bld) [Mass/Vol] 11.0 g/dL Low 12.0-15.0 [facility] Immature granulocytes/100 WB C Auto (Bld)Ordered By: Son Quiroga on 10-11-2024 Immature granulocytes/100 WBC (Bld) 0.800 % 0.0-0.9 [facility] Comment on above: IG% - Immature Granu locytes (promyelocytes, myelocytes and metamyelocytes) > 1% indicates that a LEFT SHIFT is Present. L501.4021on 10-11-2024 Trop T High Sen 129 ng/L Invalid Interpretation Code <=14 [facility] Comment on above: Result Comment: Crit ical Result(s) Called at 0514: by: DOUG CAMP??Results read back by same. Performed By: #### L 501.4021 ####[facility] [address] [place], [address] LDL calc ser/plasOrdered By: Son Quiroga on 10-11-2024 Cholesterol in LDL [Mass/Vol] 69 mg/dL [facility] Comment on above: Wlagbbhmig=073-835 m g/dL & Higher Ftog=187 mg/dL or greaterFriedwald Equation for LDL-C Laboratory - Chemistry and C hemistry - challengeOrdered By: Son Quiroga on 10-11-2024 AST [Catalytic activity/Vol] 27 U/L <32 [facility] Legionella Antigen Urineon 0 10-11-2024 LEGU Normal [facility] Comment on above: Performed By: #### M 300.4500, M300.4600 ####[facility] [address] [place], [address] Lipid Profileon 10-11-2024 CHOL:HDL 2.39 Normal [facility] Comment on above: Performed By: #### L 500.4100, L100.0100, L500.4050, L501.2300 ####[facility] [address] [place], [address] Cholesterol [Mass/Vol] 140 mg/dL Normal <=200 [facility] Comment on above: Result Comment: Chol esterol level, Desirable <200 mg/dLBorderline high cholesterol 200-239 mg/dLHigh cholesterol >=240 mg/dLRecommendations of the NCEP Adult Treatment Panel for thefollowing risk-cutoff thresholds for the [place] Americanpulation. Performed By: #### L 500.4100, L100.0100, L500.4050, L501.2300 ####[facility] [address] [place], [address] Cholesterol in HDL [Mass/Vol] 59 mg/dL Normal [facility] Comment on above: Result Comment: Hellen onal Cholesterol Education Program (NCEP) guidelines:<40 mg/dL: Low HDL-cholesterol (major risk factor for CHD)>= 60 mg/dL: High HDL-cholesterol (negative risk factor forCHD)HDL-cholesterol is affected by a number of factors, e.g.smoking, exercise, hormones, sex and age. Performed By: #### L 500.4100, L100.0100, L500.4050, L501.2300 ####[facility] [address] [place], [address] Cholesterol in LDL [Mass/Vol] 69 mg/dL Normal [facility] Comment on above: Result Comment: Bord zukpsi=684-045 mg/dL Higher Rhbh=668 mg/dL or greaterFriedwald Equation for LDL-C Performed By: #### L 500.4100, L100.0100, L500.4050, L501.2300 ####[facility] [address] [place], [address] Cholesterol in VLDL [Mass/Vol] 12 mg/dL Normal 5-40 [facility] Comment on above: Performed By: #### L 500.4100, L100.0100, L500.4050, L501.2300 ####[facility] [address] [place], [address] Triglyceride [Mass/Vol] 60 mg/dL Normal [facility] Comment on above: Result Comment: The drugs N-Acetylcysteine and Metamizole may falselydepress this assay.Normal range: <150 mg/dLBorderline High: 150-199 mg/dLHigh: 200-499 mg/dLVery High: >500 mg/dL Performed By: #### L 500.4100, L100.0100, L500.4050, L501.2300 ####[facility] [address] [place], [place], [address] MCV (mean corpuscular volume ) determinationOrdered By: Son Quiroga on 10-11-2024 MCV (RBC) [Entitic vol] 90.6 fL 81-99 [facility] Mean corpuscular hemoglobin (MCH) determinationOrdered By: Son Quiroga on 10-11-2024 MCH (RBC) [Entitic mass] 30.3 pg 27.0-32.0 [facility] Mean corpuscular hemoglobin concentration (MCHC) determinationOrdered By: Son Quiroga on 10-11-2024 MCHC (RBC) [Mass/Vol] 33.4 g/dL 32-36 [facility] Mean platelet volume determi nationOrdered By: Son Quiroga on 10-11-2024 Platelet mean volume (Bld) [Entitic vol] 10.3 fL 6.2-12.0 [facility] Monocyte percentageOrdered B y: Son Quiroga on 10-11-2024 Monocytes/100 WBC (Bld) 1.0 % 0-10 [facility] Neutrophil percentageOrdered By: Son Quiroga on 10-11-2024 Neutrophils/100 WBC (Bld) 91.3 % High 47-70 [facility] Nucleated red blood cell per centageOrdered By: Son Quiroga on 10-11-2024 Nucleated RBC/100 WBC (Bld) [Ratio] 0 % 0-5 [facility] Phosphoruson 10-11-2024 Phosphate [Mass/Vol] 7.3 mg/dL High 2.7-4.5 [facility] Comment on above: Performed By: #### L 500.4100, L100.0100, L500.4050, L501.2300 ####[facility] [address] [place], [address] Platelet countOrdered By: Farhat Quiroga on 10-11-2024 Platelets (Bld) [#/Vol] 152 10*3/uL 150-450 [facility] Potassium measurement (mass/ volume)Ordered By: Son Quiroga on 10-11-2024 Potassium (Unsp spec) [Mass/Vol] 5.4 mmol/L High 3.3-5.1 [facility] RBC Auto (Bld) [#/Vol]Ordere d By: Son Quiroga on 10-11-2024 RBC (Bld) [#/Vol] 3.63 10*6/uL Low 4.2-5.[address] [facility] RESPIRATORY PANEL MOLECULARo n 10-11-2024 RP PANEL Normal [facility] Comment on above: Performed By: #### M 100.638 ####[facility] [address] [place], [place], [address] Screening total cholesterol/ high density lipoprotein (HDL) cholesterol ratioOrdered By: Son Quiroga on 10-11-2024 Cholesterol.total/Caity sterol in HDL [Mass ratio] 2.39 {ratio} [facility] Serum creatinine measurement (mass/volume)Ordered By: Son Quiroag on 10-11-2024 Creatinine [Mass/Vol] 8.71 mg/dL High 0.70-1.20 [facility] Comment on above: Critical Result(s) C alled at 0615: by: JOSEPH RUCKER TO TALISHA. Results read back by same. Serum globulin measurementOr dered By: Son Quiroga on 10-11-2024 Globulin (S) [Mass/Vol] 2.7 g/dL 2.2-4.2 [facility] Serum glucose measurement (m ass/volume)Ordered By: Son Quiroga on 10-11-2024 Glucose [Mass/Vol] 291 mg/dL High 70-99 [facility] Serum or plasma alanine tobin otransferase (ALT) measurementOrdered By: Son Quiroga on 10-11-2024 ALT [Catalytic activity/Vol] 14 U/L <35 [facility] Serum or plasma albumin joya urement (mass/volume)Ordered By: Son Quiroga on 10-11-2024 Albumin [Mass/Vol] 3.9 g/dL 3.5-5.0 [facility] Serum or plasma albumin/glob ulin mass ratioOrdered By: Son Quiroga on 10-11-2024 Albumin/Globulin [Mass ratio] 1.5 {ratio} 0.9-2.4 [facility] Serum or plasma alkaline evaristo sphatase measurementOrdered By: Son Quiroga on 10-11-2024 ALP [Catalytic activity/Vol] 76 U/L 35-104 [facility] Serum or plasma calcium joya urement (mass/volume)Ordered By: Son Quiroga on 10-11-2024 Calcium [Mass/Vol] 9.5 mg/dL 7.6-11.0 [facility] Serum or plasma cholesterol in HDL measurement (mass/volume)Ordered By: Son Quiroga on 10-11-2024 Cholesterol in HDL [Mass/Vol] 59 mg/dL >40 [facility] Comment on above: National Cholesterol Education Program (NCEP) guidelines:<40 mg/dL: Low HDL-cholesterol (major risk factor for CHD)>= 60 mg/dL: High HDL-cholesterol (negative risk factor for CHD)HDL-cholesterol is affected by a number of factors, e.g. smoking, exercise, hormones, sex and age. Serum or plasma cholesterol measurement (mass/volume)Ordered By: Son Quiroga on 10-11-2024 Cholesterol [Mass/Vol] 140 mg/dL <201 [facility] Comment on above: Cholesterol level, D esirable <200 mg/dLBorderline high cholesterol 200-239 mg/dLHigh cholesterol >=240 mg/dLRecommendations of the NCEP Adult Treatment Panel for the following risk-cutoff thresholds for the [place] population. Serum or plasma urea nitroge n measurement (mass/volume)Ordered By: Son Quiroga on 10-11-2024 Urea nitrogen [Mass/Vol] 72 mg/dL High 4-19 [facility] Sodium levelOrdered By: Jabier Quiroga on 10-11-2024 Sodium [Moles/Vol] 129 mmol/L Low 133-145 [facility] Stool Lactoferrin/WBCon 09-30 WBCST Is the patient receiving laxatives? N New/unexplained onset of 3 or more stools in past 24 hrs? Y Normal Reference Range = Negative Fecal WBC Lactoferrin A Positive: Fecal WBC Lactoferrin present A Normal [facility] Comment on above: Performed By: #### M 100.637, M100.0605, M100.6796 ####[facility] [address] [place], [place], [address] Stool lactoferrin detection by immunoassayOrdered By: Son Quiroga on 10-11-2024 Lactoferrin IA Ql (Stl) [facility] Strep pneumoniae Antig(UR,CS F)on 10-11-2024 STPAG Normal [facility] Comment on above: Performed By: #### M 300.4500, M300.4600 ####[facility] [address] [place], [place], [address] Total proteinOrdered By: Domenic Quiroga on 10-11-2024 Protein [Mass/Vol] 6.6 g/dL 5.9-8.4 [facility] Triglycerides measurementOrd ered By: Son Quiroga on 10-11-2024 Triglyceride [Mass/Vol] 60 mg/dL <199 [facility] Comment on above: The drugs N-Acetylcy steine and Metamizole may falsely depress this assay. Normal range: <150 mg/dLBorderline High: 150-199 mg/dLHigh: 200-499 mg/dLVery High: >500 mg/dL Troponin T HS 2 HRon 025 Trop T High Sen 104 ng/L Invalid Interpretation Code <=14 [facility] Comment on above: Result Comment: Crit ical Result(s) Called at 0103: by:??DOUG Triana read back by same. Performed By: #### L 499.0042 ####[facility] [address] [place], [place], [address] Troponin T.cardiac [Mass/vol ume] in Serum or Plasma by High sensitivity methodOrdered By: Son Quiroga on 10-11-2024 Troponin T.cardiac High sensitivity method [Mass/Vol] 129 ng/L High <14 [facility] Comment on above: Delta: 97 on 5-1740Critical Result(s) Called at 0514: by: NBURNS TO AFLICKINGER Results read back by same. Venous duplex ultrasound rep ortOrdered By: Erick Hoffman on 10-11-2024 [facility] [address] [place] [address] Venous Duplex US - Gayathri Extrem 10/11/24 1359 MR#: [id number] Acct: [id number] Name: Margareth GONZALEZ Rep #:[id number] : 1965 59 From: Erick Hoffman MD Attending Dr: Dr. Hipolito Shepard MD Status: ADM IN Ordering Dr: Son Hallman DO Date: 10/10/24 Location: [facility] Sex: F C Admitted: 10/10/24 Reason For Study Reason For Study: Elevated D Dimer RIGHT LEFT GSV is normal. GSV is normal. CFV is compressible, spontaneous, competent and CFV is compressible, spontaneous, competent, and demonstrates pulsatile venous flow. demonstrates pulsatile venous flow. FV is compressible, spontaneous, competent and FV is compressible, spontaneous, competent and demonstrates pulsatile venous flow. demonstrates pulsatile venous flow. POP V is compressible, spontaneous, competent and POP V is compressible, spontaneous, competent and demonstrates pulsatile venous flow. demonstrates pulsatile venous flow. T/P Trunk is compressible. T/P Trunk is compressible. PTV is compressible. PTV is compressible. RT PerV is compressible. LT PerV is compressible. Procedure This is a venous duplex using B-mode, color flow and spectral Doppler. Exam performed portable in patient room. The study was technically difficult. A preliminary report was called and/or faxed to PCU chief of field operations. VL/Venous Duplex US - Gayathri Extrem Interpretation Summary Deep veins of the lower extremities are bilaterally patent and compressible segmentally. There is no evidence of deep vein thrombosis on either side. Valvular competence appears intact within the proximal deep venous systems bilaterally. The great saphenous veins appear bilaterally patent and compressible segmentally. Pulsatile flow is noted in the deep venous system bilaterally, which may be indicative of elevated central venous pressure (i.e. congestive heart failure, pulmonary hypertension, etc.). Clinical correlation is advised. Ordering Physician: Son Hallman Referring Physician: Ignacio Cheatham Performed By: Lion Araya, RVT 10/11/241929 Date _ Erick Hoffman MD CC: Dr. Son Hallman DO; Dr. Hipolito Shepard MD; Dr. Ignacio Cheatham MD~ Date Dictated: 10/11/24 1359 Date Transcribed: 10/11/241929 Seafood Clerk: Signed [facility] Other Phone: White blood cell (WBC) count Ordered By: Son Quiroga on 10-11-2024 WBC (Bld) [#/Vol] 3.9 10*3/uL Low 4.4-11.0 [facility] 12 Lead EKGon 10-10-2024 12 Lead EKG Normal [facility] Absolute lymphocyte countOrd ered By: Jim Shah on 10-10-2024 Lymphocytes Auto (Unsp spec) [#/Vol] 0.97 10*3/uL 0.83-4.51 [facility] Absolute neutrophil countOrd ered By: Jim Shah on 10-10-2024 Neutrophils (Bld) [#/Vol] 4.5 10*3/uL 2.0-7.7 [facility] Anion gap in Serum or Plasma Ordered By: Jim Shah on 10-10-2024 Anion gap [Moles/Vol] 21 mmol/L High 5-15 [facility] Automated lymphocyte count a s percentage of total leukocytesOrdered By: Jim Shah on 10-10-2024 Lymphocytes/100 WBC Auto (Unsp spec) 16.1 % Low 19-41 [facility] BUN/creatinine ratioOrdered By: Jimshankar Shah on 10-10-2024 Urea nitrogen/Creatinine [Mass ratio] 7.9 mg/mg Low 10-20 [facility] Basophil percentageOrdered B y: Jim Shah on 10-10-2024 Basophils/100 WBC (Bld) 0.7 % 0-1 [facility] Bedside Glucoseon 10-10-2024 FINGERSTICK GLU 296 mg/dL High 74-106 [facility] Comment on above: Result Comment: SONJA VARGAS OF PATIENT CARE PER NURSING PROTOCOL Performed By: #### L 501.080 ####[facility] [address] [place], [address] Bilirubin Test strip Ql (U)O rdered By: Jim Shah on 10-10-2024 Bilirubin Ql (U) Negative Negative [facility] Bilirubin, totalOrdered By: Jim Shah on 10-10-2024 Bilirubin [Mass/Vol] 0.50 mg/dL 0.00-1.30 [facility] CBC W/Diff, Automatedon 09-30 Absolute Lymph 0.97 X10 3/uL Normal 0.83-4.51 [facility] Comment on above: Performed By: #### L 100.0100, L501.2450, L300.8000, L500.4050 ####[facility] [address] [place], [address] Absolute Neut 4.5 X10 3/uL Normal 2.0-7.7 [facility] Comment on above: Performed By: #### L 100.0100, L501.2450, L300.8000, L500.4050 ####[facility] [address] [place], [address] Basophils/100 WBC (Bld) 0.7 % Normal 0-1 [facility] Comment on above: Performed By: #### L 100.0100, L501.2450, L300.8000, L500.4050 ####[facility] [address] [place], [address] Eosinophils/100 WBC (Bld) 2.5 % Normal 0-5 [facility] Comment on above: Performed By: #### L 100.0100, L501.2450, L300.8000, L500.4050 ####[facility] [address] [place], [address] Erythrocyte distribution width (RBC) [Ratio] 13.0 % Normal 11.6-14.6 [facility] Comment on above: Performed By: #### L 100.0100, L501.2450, L300.8000, L500.4050 ####[facility] [address] [place], [address] Hematocrit (Bld) [Volume fraction] 33.4 % Low 37-47 [facility] Comment on above: Performed By: #### L 100.0100, L501.2450, L300.8000, L500.4050 ####[facility] [address] [place], [address] Hemoglobin (Bld) [Mass/Vol] 11.3 g/dL Low 12.0-15.0 [facility] Comment on above: Performed By: #### L 100.0100, L501.2450, L300.8000, L500.4050 ####[facility] [address] [place], [address] IG% 0.700 Normal 0.0-0.9 [facility] Comment on above: Result Comment: IG% - Immature Granulocytes (promyelocytes, myelocytes andmetamyelocytes) > 1% indicates that a LEFT SHIFT is Present. Performed By: #### L 100.0100, L501.2450, L300.8000, L500.4050 ####[facility] [address] [place], [address] Lymphocytes/100 WBC (Bld) 16.1 % Low 19-41 [facility] Comment on above: Performed By: #### L 100.0100, L501.2450, L300.8000, L500.4050 ####[facility] [address] [place], [address] MCH (RBC) [Entitic mass] 30.5 pg Normal 27.0-32.0 [facility] Comment on above: Performed By: #### L 100.0100, L501.2450, L300.8000, L500.4050 ####[facility] [address] [place], [address] MCHC (RBC) [Mass/Vol] 33.8 g/dL Normal 32-36 [facility] Comment on above: Performed By: #### L 100.0100, L501.2450, L300.8000, L500.4050 ####[facility] [address] [place], [address] MCV (RBC) [Entitic vol] 90.3 fL Normal 81-99 [facility] Comment on above: Performed By: #### L 100.0100, L501.2450, L300.8000, L500.4050 ####[facility] [address] [place], [address] Monocytes/100 WBC (Bld) 5.3 % Normal 0-10 [facility] Comment on above: Performed By: #### L 100.0100, L501.2450, L300.8000, L500.4050 ####[facility] [address] [place], [address] Neutrophils/100 WBC (Bld) 74.7 % High 47-70 [facility] Comment on above: Performed By: #### L 100.0100, L501.2450, L300.8000, L500.4050 ####[facility] [address] [place], [address] Nucleated RBC (Bld) [#/Vol] 0 10*3/uL Normal 0-5 [facility] Comment on above: Performed By: #### L 100.0100, L501.2450, L300.8000, L500.4050 ####[facility] [address] [place], [address] Platelet mean volume (Bld) [Entitic vol] 11.0 fL Normal 6.2-12.0 [facility] Comment on above: Performed By: #### L 100.0100, L501.2450, L300.8000, L500.4050 ####[facility] [address] [place], [address] Platelets (Bld) [#/Vol] 143 10*3/uL Low 150-450 [facility] Comment on above: Performed By: #### L 100.0100, L501.2450, L300.8000, L500.4050 ####[facility] [address] [place], [address] RBC (Bld) [#/Vol] 3.70 10*6/uL Low 4.2-5.[address] [facility] Comment on above: Performed By: #### L 100.0100, L501.2450, L300.8000, L500.4050 ####[facility] [address] [place], [address] RDW SD 42.9 fl Normal 35.1-43.9 [facility] Comment on above: Performed By: #### L 100.0100, L501.2450, L300.8000, L500.4050 ####[facility] [address] [place], [address] WBC (Bld) [#/Vol] 6.0 10*3/uL Normal 4.4-11.0 [facility] Comment on above: Performed By: #### L 100.0100, L501.2450, L300.8000, L500.4050 ####[facility] [address] [place], [address] CO2 (BldV) [Moles/Vol]Ordere d By: Jim Shah on 10-10-2024 CO2 [Moles/Vol] 28 mmol/L 23-33 [facility] CTA Chest W/WO Contraston CTA Chest W/WO Contrast Normal [facility] Carbon dioxide, total [Moles /volume] in Central venous bloodOrdered By: Jim Shah on 10-10-2024 CO2 [Moles/Vol] 15.7 mmol/L Low 21.0-32.0 [facility] Chest PA and Lateralon 10-10 Chest PA and Lateral Normal [facility] Chloride assayOrdered By: Bharathi Shah on 10-10-2024 Chloride [Moles/Vol] 91 mmol/L Low 98-108 [facility] Comprehensive Metabolic Prof ilon 10-10-2024 Albumin [Mass/Vol] 3.5 g/dL Normal 3.5-5.0 [facility] Comment on above: Order Comment: LIP Performed By: #### L 501.4021, L500.4050, L503.7505, L501.2450, L501.5200 ####[facility] [address] [place], [address] Albumin/Globulin [Mass ratio] 1.5 {ratio} Normal 0.9-2.4 [facility] Comment on above: Order Comment: LIP Performed By: #### L 501.4021, L500.4050, L503.7505, L501.2450, L501.5200 ####[facility] [address] [place], [address] ALK PHOS 66 U/L Normal 35-104 [facility] Comment on above: Order Comment: LIP Performed By: #### L 501.4021, L500.4050, L503.7505, L501.2450, L501.5200 ####[facility] [address] [place], [address] ALT [Catalytic activity/Vol] 9 U/L Normal <=34 [facility] Comment on above: Order Comment: LIP Result Comment: Hemo lysis present, Results??could be affected.?? Performed By: #### L 501.4021, L500.4050, L503.7505, L501.2450, L501.5200 ####[facility] [address] [place], [address] AST [Catalytic activity/Vol] 34 U/L High <=31 [facility] Comment on above: Order Comment: LIP Result Comment: Hemo lysis present, Results??could be affected.?? Performed By: #### L 501.4021, L500.4050, L503.7505, L501.2450, L501.5200 ####[facility] [address] [place], [address] Bilirubin [Mass/Vol] 0.50 mg/dL Normal 0.00-1.30 [facility] Comment on above: Order Comment: LIP Performed By: #### L 501.4021, L500.4050, L503.7505, L501.2450, L501.5200 ####[facility] [address] [place], [address] BUN/CRE 7.9 RATIO Low 10-20 [facility] Comment on above: Order Comment: LIP Performed By: #### L 501.4021, L500.4050, L503.7505, L501.2450, L501.5200 ####[facility] [address] [place], [address] Calcium [Mass/Vol] 8.9 mg/dL Normal 7.6-11.0 [facility] Comment on above: Order Comment: LIP Performed By: #### L 501.4021, L500.4050, L503.7505, L501.2450, L501.5200 ####[facility] [address] [place], [address] Chloride [Moles/Vol] 91 mmol/L Low 98-108 [facility] Comment on above: Order Comment: LIP Performed By: #### L 501.4021, L500.4050, L503.7505, L501.2450, L501.5200 ####[facility] [address] [place], [address] CO2 [Moles/Vol] 15.7 mmol/L Low 21.0-32.0 [facility] Comment on above: Order Comment: LIP Performed By: #### L 501.4021, L500.4050, L503.7505, L501.2450, L501.5200 ####[facility] [address] [place], [address] Creatinine [Mass/Vol] 8.20 mg/dL Invalid Interpretation Code 0.70-1.20 [facility] Comment on above: Order Comment: LIP Result Comment: Crit ical Result(s) Called at: by:??Results read back bysame.Critical Result(s) Called at: by:??Results read back bysame.Critical Result(s) Called at: by:??Results read back bysame.Critical Result(s) Called at: 1918 by: JIMENA PIEDRA TO CHICO ??Results read back by same. Performed By: #### L 501.4021, L500.4050, L503.7505, L501.2450, L501.5200 ####[facility] [address] [place], [address] ECRCL 8.46 ml/min Invalid Interpretation Code 50-250 [facility] Comment on above: Order Comment: LIP Performed By: #### L 501.4021, L500.4050, L503.7505, L501.2450, L501.5200 ####[facility] [address] [place], [address] GAP 21 High 5-15 [facility] Comment on above: Order Comment: LIP Performed By: #### L 501.4021, L500.4050, L503.7505, L501.2450, L501.5200 ####[facility] [address] [place], [address] GFR/1.73 sq M.predicted among non-blacks MDRD (S/P/Bld) [Vol rate/Area] 5 mL/min/{1.73_m2} Low >60 [facility] Comment on above: Order Comment: LIP Result Comment: mL/m in/1.73m2 CKD-EPI Creatinine Equation (2020) Performed By: #### L 501.4021, L500.4050, L503.7505, L501.2450, L501.5200 ####[facility] [address] [place], [address] Globulin (S) [Mass/Vol] 2.3 g/dL Normal 2.2-4.2 [facility] Comment on above: Order Comment: LIP Performed By: #### L 501.4021, L500.4050, L503.7505, L501.2450, L501.5200 ####[facility] [address] [place], [address] Glucose [Mass/Vol] 298 mg/dL High 70-99 [facility] Comment on above: Order Comment: LIP Performed By: #### L 501.4021, L500.4050, L503.7505, L501.2450, L501.5200 ####[facility] [address] [place], [address] Potassium [Moles/Vol] 6.2 mmol/L Invalid Interpretation Code 3.3-5.1 [facility] Comment on above: Order Comment: LIP Result Comment: Hemo lysis present, Results??could be affected.??Critical Result(s) Called at: 1917 by: JIMENA PIEDRA TO [place] ??Results read back by same. Performed By: #### L 501.4021, L500.4050, L503.7505, L501.2450, L501.5200 ####[facility] [address] [place], [address] Sodium [Moles/Vol] 128 mmol/L Low 133-145 [facility] Comment on above: Order Comment: LIP Performed By: #### L 501.4021, L500.4050, L503.7505, L501.2450, L501.5200 ####[facility] [address] [place], [address] T PROT 5.8 g/dL Low 5.9-8.4 [facility] Comment on above: Order Comment: LIP Performed By: #### L 501.4021, L500.4050, L503.7505, L501.2450, L501.5200 ####[facility] [address] [place], [address] Urea nitrogen [Mass/Vol] 65 mg/dL High 4-19 [facility] Comment on above: Order Comment: LIP Performed By: #### L 501.4021, L500.4050, L503.7505, L501.2450, L501.5200 ####[facility] [address] [place], [address] ALB Normal 3.5-5.0 [facility] Comment on above: Result Comment: This specimen has been REJECTED due to Laboratory criteria:Hemolyzed.JODY ANDINO has been notified of need of recollection.10/10/24 1720 Jimena Piedra Performed By: #### L 100.0100, L501.2450, L300.8000, L500.4050 ####[facility] [address] [place], [address] ALK PHOS Normal 35-104 [facility] Comment on above: Result Comment: This specimen has been REJECTED due to Laboratory criteria:Hemolyzed.JODY ANDINO has been notified of need of recollection.10/10/24 1720 Jimena Lollo Performed By: #### L 100.0100, L501.2450, L300.8000, L500.4050 ####[facility] [address] [place], [address] ALT Normal <=34 [facility] Comment on above: Result Comment: This specimen has been REJECTED due to Laboratory criteria:Hemolyzed.JODY ANDINO has been notified of need of recollection.10/10/24 1720 Jimena Lollo Performed By: #### L 100.0100, L501.2450, L300.8000, L500.4050 ####[facility] [address] [place], [address] AST Normal <=31 [facility] Comment on above: Result Comment: This specimen has been REJECTED due to Laboratory criteria:Hemolyzed.JODY ANDINO has been notified of need of recollection.10/10/24 1720 Jimena Lollo Performed By: #### L 100.0100, L501.2450, L300.8000, L500.4050 ####[facility] [address] [place], [address] BUN Normal 4-19 [facility] Comment on above: Result Comment: This specimen has been REJECTED due to Laboratory criteria:Hemolyzed.JODY ANDINO has been notified of need of recollection.10/10/24 1720 Jimena Lollo Performed By: #### L 100.0100, L501.2450, L300.8000, L500.4050 ####[facility] [address] [place], [address] BUN/CRE Normal 10-20 [facility] Comment on above: Result Comment: This specimen has been REJECTED due to Laboratory criteria:Hemolyzed.JODY ANDINO has been notified of need of recollection.10/10/24 1720 Jimena Lollo Performed By: #### L 100.0100, L501.2450, L300.8000, L500.4050 ####[facility] [address] [place], [address] Calcium Normal 7.6-11.0 [facility] Comment on above: Result Comment: This specimen has been REJECTED due to Laboratory criteria:Hemolyzed.JODY ANDINO has been notified of need of recollection.10/10/24 1720 Jimena Lollo Performed By: #### L 100.0100, L501.2450, L300.8000, L500.4050 ####[facility] [address] [place], [address] CL Normal 98-108 [facility] Comment on above: Result Comment: This specimen has been REJECTED due to Laboratory criteria:Hemolyzed.JODY ANDINO has been notified of need of recollection.10/10/24 1720 Jimena Lollo Performed By: #### L 100.0100, L501.2450, L300.8000, L500.4050 ####[facility] [address] [place], [address] CO2 Normal 21.0-32.0 [facility] Comment on above: Result Comment: This specimen has been REJECTED due to Laboratory criteria:Hemolyzed.JODY ANDINO has been notified of need of recollection.10/10/24 1720 Jimena Lollo Performed By: #### L 100.0100, L501.2450, L300.8000, L500.4050 ####[facility] [address] [place], [address] CREAT,SERUM Normal 0.70-1.20 [facility] Comment on above: Result Comment: This specimen has been REJECTED due to Laboratory criteria:Hemolyzed.JODY ANDINO has been notified of need of recollection.10/10/24 1720 Jimena Lollo Performed By: #### L 100.0100, L501.2450, L300.8000, L500.4050 ####[facility] [address] [place], [address] eGFR Normal >60 [facility] Comment on above: Result Comment: This specimen has been REJECTED due to Laboratory criteria:Hemolyzed.JODY ANDINO has been notified of need of recollection.10/10/24 1720 Jimena Lollo Performed By: #### L 100.0100, L501.2450, L300.8000, L500.4050 ####[facility] [address] [place], [address] GAP Normal 5-15 [facility] Comment on above: Result Comment: This specimen has been REJECTED due to Laboratory criteria:Hemolyzed.JODY ANDINO has been notified of need of recollection.10/10/24 1720 Jimena Lollo Performed By: #### L 100.0100, L501.2450, L300.8000, L500.4050 ####[facility] [address] [place], [address] GLU Normal 70-99 [facility] Comment on above: Result Comment: This specimen has been REJECTED due to Laboratory criteria:Hemolyzed.JODY ANDINO has been notified of need of recollection.10/10/24 1720 Jimena Lollo Performed By: #### L 100.0100, L501.2450, L300.8000, L500.4050 ####[facility] [address] [place], [address] Potassium Normal 3.3-5.1 [facility] Comment on above: Result Comment: This specimen has been REJECTED due to Laboratory criteria:Hemolyzed.JODY ANDINO has been notified of need of recollection.10/10/24 1720 Jimena Lollo Performed By: #### L 100.0100, L501.2450, L300.8000, L500.4050 ####[facility] [address] [place], [address] T BILI Normal 0.00-1.30 [facility] Comment on above: Result Comment: This specimen has been REJECTED due to Laboratory criteria:Hemolyzed.JODY ANDINO has been notified of need of recollection.10/10/24 1720 Jimena Lollo Performed By: #### L 100.0100, L501.2450, L300.8000, L500.4050 ####[facility] [address] [place], [address] T PROT Normal 5.9-8.4 [facility] Comment on above: Result Comment: This specimen has been REJECTED due to Laboratory criteria:Hemolyzed.JODY ANDINO has been notified of need of recollection.10/10/24 1720 Jimena Lollo Performed By: #### L 100.0100, L501.2450, L300.8000, L500.4050 ####[facility] [address] [place], [address] Comprehensive Metabolic Profil Normal 133-145 [facility] Comment on above: Result Comment: This specimen has been REJECTED due to Laboratory criteria:Hemolyzed.JODY ANDINO has been notified of need of recollection.10/10/24 1720 Jimena Lollo Performed By: #### L 100.0100, L501.2450, L300.8000, L500.4050 ####[facility] [address] [place], [address] D-Dimer Quantitative (DVT/PE )on 10-10-2024 D-DIMER QUANT 2.92 FEU/ug/m Invalid Interpretation Code 0.27-0.49 [facility] Comment on above: Result Comment: D-Di britt ELEVATED (>0.49): Additional studies and clinicalassessments are indicated to conclude diagnosis of:Deep Vein Thrombosis (DVT) or Pulmonary Embolism (PE)CRITICAL VALUE CALLED TO FRANCISCO JAVIER RENE10/10/24 1753 Laine Leblanc.RESULTS READ BACK BY SAME. Performed By: #### L 100.0100, L501.2450, L300.8000, L500.4050 ####[facility] [address] [place], [place], [id number] Emergency Department Summary on 10-10-2024 Emergency Department Summary Normal [facility] Eosinophil percentageOrdered By: [facility] on 10-10-2024 Eosinophils/100 WBC (Bld) 2.5 % 0-5 [facility] Erythrocyte distribution wid th ratioOrdered By: [facility] on 10-10-2024 Erythrocyte distribution width (RBC) [Ratio] 13.0 % 11.6-14.6 [facility] Erythrocyte distribution wid th standard deviationOrdered By: [facility] on 10-10-2024 Erythrocyte distribution width (RBC) [Ratio] 42.9 fl 35.1-43.9 [facility] Folate [Moles/volume] in Ser um or PlasmaOrdered By: Son Quiroga on 10-10-2024 Folate [Moles/Vol] 7.19 ng/mL 4.60-34.80 [facility] Folates,Serum (Folic Acid)on 10-10-2024 FOLATES,SERUM 7.19 ng/mL Normal 4.60-34.80 [facility] Comment on above: Performed By: #### L 506.0200 ####[facility] [address] [place], [place], [address] Glomerular filtration rate ( GFR) estimation/1.73 sq m using serum, plasma, or whole bOrdered By: Jim Shah on 10-10-2024 GFR/1.73 sq M.predicted among non-blacks MDRD (S/P/Bld) [Vol rate/Area] 5 mL/min/{1.73_m2} Low >60 [facility] Comment on above: mL/min/1.73m2 CKD-EP I Creatinine Equation (2020) Glucose measurement at bedsi deOrdered By: Son Quiroga on 10-10-2024 Glucose [Mass/Vol] 296 mg/dL High 74-106 [facility] Comment on above: MANAGEMENT OF PATIEN T CARE PER NURSING PROTOCOL H AND P Exam - [facility] 10-10-2024 H&P Exam - Hospitalist Normal [facility] Hematocrit Auto (Bld) [Volum e fraction]Ordered By: Jim Shah on 10-10-2024 Hematocrit (Bld) [Volume fraction] 33.4 % Low 37-47 [facility] Hemoglobin A1con 10-10-2024 HbA1c (Bld) [Mass fraction] 8.1 % High <=5.6 [facility] Comment on above: Result Comment: Norm al < 5.7 % Prediabetic 5.7 - 6.4 % Diabetic >or= 6.5 % Please note range changes. Performed By: #### L 501.9520, L503.0106, L501.9985 ####[facility] [address] [place], [address] Hemoglobin A1c percentageOrd ered By: Son Quiroga on 10-10-2024 HbA1c (Bld) [Mass fraction] 8.1 % High <5.7 [facility] Comment on above: Normal < 5.7 % Predi abetic 5.7 - 6.4 % Diabetic >or= 6.5 % Please note range changes. Hemoglobin measurementOrdere d By: Jim Shah on 10-10-2024 Hemoglobin (Bld) [Mass/Vol] 11.3 g/dL Low 12.0-15.0 [facility] Immature granulocytes/100 WB C Auto (Bld)Ordered By: Jim Shah on 10-10-2024 Immature granulocytes/100 WBC (Bld) 0.700 % 0.0-0.9 [facility] Comment on above: IG% - Immature Granu locytes (promyelocytes, myelocytes and metamyelocytes) > 1% indicates that a LEFT SHIFT is Present. Influenza virus A and B and SARS-CoV-2 (COVID-19) and Respiratory syncytial virus RNAOrdered By: Jim Shah on 10-10-2024 SARS-CoV-2 (COVID-19) RNA CAR+probe Ql (Unsp spec) [facility] Ketones Test strip Ql (U)Ord ered By: Jim Shah on 10-10-2024 Ketones Ql (U) Negative Negative [facility] L501.4021on 10-10-2024 Trop T High Sen 97 ng/L Invalid Interpretation Code <=14 [facility] Comment on above: Result Comment: Hemo lysis present, Results??could be affected.??Critical Result(s) Called at: by:??Results read back bysame.Critical Result(s) Called at: by:??Results read back bysame.Critical Result(s) Called at: by:??Results read back bysame.Critical Result(s) Called at: 1918 by:??JIMENA FRANK Results read back by same. Performed By: #### L 501.4021, L500.4050, L503.7505, L501.2450, L501.5200 ####[facility] [address] [place], [place], [id number] Laboratory - Chemistry and C hemistry - challengeOrdered By: Jim Shah on 10-10-2024 AST [Catalytic activity/Vol] 34 U/L High <32 [facility] Comment on above: Hemolysis present, R esults could be affected. Lactic Acidon 10-10-2024 Lactate [Moles/Vol] mmol/L Normal 0.0-2.[address] [facility] Comment on above: Order Comment: Y Performed By: #### L 503.6005 ####[facility] [address] [place], [place], [id number] Lactic acid measurementOrder ed By: Jim Shah on 10-10-2024 Lactate [Moles/Vol] mmol/L 0.0-2.[address] [facility] Lipaseon 10-10-2024 Lipase [Catalytic activity/Vol] 39 U/L Normal - [facility] Comment on above: Result Comment: Plea se note:LIPASE revised reference range effective 22.New Lipase methodology. Expected to produce lower valuesthan the previous assay method.NEW Reference Range: 13 - 75 U/L Performed By: #### L 501.4021, L500.4050, L503.7505, L501.2450, L501.5200 ####[facility] [address] [place], [address] Lipase [Catalytic activity/Vol] 51 U/L Normal [facility] Comment on above: Order Comment: This specimen has been REJECTED due to Laboratory criteria:Hemolyzed.JODY ANDINO has been notified of need of recollection.10/10/24 1720 Jimena Lollo Result Comment: This specimen has been REJECTED due to Laboratory criteria:Hemolyzed.JODY ANDINO has been notified of need of recollection.10/10/24 1720 Jimena LolloPlease note:LIPASE revised reference range effective 22.New Lipase methodology. Expected to produce lower valuesthan the previous assay method.NEW Reference Range: 13 - 75 U/L Performed By: #### L 100.0100, L501.2450, L300.8000, L500.4050 ####[facility] [address] [place], [address] Lipase measurementOrdered By : Jim Shah on 10-10-2024 Lipase [Catalytic activity/Vol] 39 U/L - [facility] Comment on above: Please note:LIPASE r evised reference range effective 22. New Lipase methodology. Expected to produce lower values than the previous assay method. NEW Reference Range: 13 - 75 U/L M100.678on 10-10-2024 M100.678 Pending SARS-CoV-2 (COVID 19) Negative INFLUENZA A Negative INFLUENZA B Negative RSV PCR Negative Normal [facility] Comment on above: Performed By: #### M 100.678 ####[facility] [address] [place], [place], [address] MCV (mean corpuscular volume ) determinationOrdered By: Jim Shah on 10-10-2024 MCV (RBC) [Entitic vol] 90.3 fL 81-99 [facility] Magnesiumon 10-10-2024 Magnesium [Mass/Vol] 2.2 mg/dL Normal 1.5-2.2 [facility] Comment on above: Performed By: #### L 501.4021, L500.4050, L503.7505, L501.2450, L501.5200 ####[facility] [address] [facility] [place], [address] Magnesium measurement (mass/ volume)Ordered By: Jim Shah on 10-10-2024 Magnesium (Unsp spec) [Mass/Vol] 2.2 mg/dL 1.5-2.2 [facility] Mean corpuscular hemoglobin (MCH) determinationOrdered By: [facility] on 10-10-2024 MCH (RBC) [Entitic mass] 30.5 pg 27.0-32.0 [facility] Mean corpuscular hemoglobin concentration (MCHC) determinationOrdered By: Jimshankar Shah on 10-10-2024 MCHC (RBC) [Mass/Vol] 33.8 g/dL 32-36 [facility] Mean platelet volume determi nationOrdered By: Jim Shah on 10-10-2024 Platelet mean volume (Bld) [Entitic vol] 11.0 fL 6.2-12.0 [facility] Microscopic analysis of urin e for red blood cells (RBC)Ordered By: Jim Shah on 10-10-2024 Microscopic analysis of urine for red blood cells (RBC) 5-10 SEEN /hpf 0-5 [facility] Monocyte percentageOrdered B y: Jim Shah on 10-10-2024 Monocytes/100 WBC (Bld) 5.3 % 0-10 [facility] Mucus LM Ql (Urine sed)Order ed By: Jim Shah on 10-10-2024 Mucus Ql (Urine sed) 0 SEEN /hpf [facility] Natriuretic peptide.B prohor javon N-Terminal [Mass/volume] in Serum or PlasmaOrdered By: Jim Shah on 10-10-2024 Natriuretic peptide.B prohormone N-Terminal [Mass/Vol] > 39935 pg/mL High <900 [facility] Comment on above: Heart Failure Unlike ly: < 300 pg/mLHeart Failure Likely< 50 Years: > 450 pg/mL50-75 Years: > 900 pg/mL>75 Years: > 1800 pg/mL Neutrophil percentageOrdered By: Jim Shah on 10-10-2024 Neutrophils/100 WBC (Bld) 74.7 % High 47-70 [facility] Nitrite Test strip Ql (U)Ord ered By: Jim Shah on 10-10-2024 Nitrite Ql (U) Negative Negative [facility] No Panel InformationOrdered By: Jim Shah on 10-10-2024 Blood Gas Sample Site Not entered [facility] Blood Gas Specimen Type LILIANA [facility] Oxygen Delivery Device Cannula [facility] Nucleated red blood cell per centageOrdered By: Jim Shah on 10-10-2024 Nucleated RBC/100 WBC (Bld) [Ratio] 0 % 0-5 [facility] Platelet countOrdered By: Bharathi Shah on 10-10-2024 Platelets (Bld) [#/Vol] 143 10*3/uL Low 150-450 [facility] Potassium measurement (mass/ volume)Ordered By: Jim Shah on 10-10-2024 Potassium (Unsp spec) [Mass/Vol] 6.2 mmol/L High 3.3-5.1 [facility] Comment on above: Hemolysis present, R esults could be affected. Critical Result(s) Called at: 1918 by: JIMENA FRANK Results read back by same. Pro- Brain NATRIURETIC PEPTI Fritz 10-10-2024 proBNP > 00578 High <=900 [facility] Comment on above: Result Comment: Hear t Failure Unlikely: < 300 pg/mLHeart Failure Likely< 50 Years: > 450 pg/mL50-75 Years: > 900 pg/mL>75 Years: > 1800 pg/mL Performed By: #### L 501.4021, L500.4050, L503.7505, L501.2450, L501.5200 ####[facility] [address] [place], [address] Protein Test strip Ql (U)Ord ered By: Jim Shah on 10-10-2024 Protein Ql (U) 100 mg/dl High Negative [facility] RBC Auto (Bld) [#/Vol]Ordere d By: Jim Shah on 10-10-2024 RBC (Bld) [#/Vol] 3.70 10*6/uL Low 4.2-5.[address] [facility] Respiratory pathogens detect ion panel by molecular detection methodOrdered By: Son Quiroga on 10-10-2024 Respiratory pathogens DNA and RNA panel CAR+probe (Resp) [facility] Serum creatinine measurement (mass/volume)Ordered By: Jim Shah on 10-10-2024 Creatinine [Mass/Vol] 8.20 mg/dL High 0.70-1.20 [facility] Comment on above: Critical Result(s) C alled at: by: Results read back by same.Critical Result(s) Called at: by: Results read back by same.Critical Result(s) Called at: by: Results read back by same.Critical Result(s) Called at: 1918 by: JIMENA PIEDRA TO EB FRANK Results read back by same. Serum globulin measurementOr dered By: Jim Shah on 10-10-2024 Globulin (S) [Mass/Vol] 2.3 g/dL 2.2-4.2 [facility] Serum glucose measurement (m ass/volume)Ordered By: Jim Shah on 10-10-2024 Glucose [Mass/Vol] 298 mg/dL High 70-99 [facility] Serum or plasma alanine tobin otransferase (ALT) measurementOrdered By: Jim Shah on 10-10-2024 ALT [Catalytic activity/Vol] 9 U/L <35 [facility] Comment on above: Hemolysis present, R esults could be affected. Serum or plasma albumin joya urement (mass/volume)Ordered By: Jim Terrell on 10-10-2024 Albumin [Mass/Vol] 3.5 g/dL 3.5-5.0 [facility] Serum or plasma albumin/glob ulin mass ratioOrdered By: [facility] CenterjuanDedra on 10-10-2024 Albumin/Globulin [Mass ratio] 1.5 {ratio} 0.9-2.4 [facility] Serum or plasma alkaline evaristo sphatase measurementOrdered By: Jim Shah on 10-10-2024 ALP [Catalytic activity/Vol] 66 U/L 35-104 [facility] Serum or plasma calcium joya urement (mass/volume)Ordered By: Jim Terrell on 10-10-2024 Calcium [Mass/Vol] 8.9 mg/dL 7.6-11.0 [facility] Serum or plasma urea nitroge n measurement (mass/volume)Ordered By: Jim Shah on 10-10-2024 Urea nitrogen [Mass/Vol] 65 mg/dL High 4-19 [facility] Sodium levelOrdered By: Kory Shha on 10-10-2024 Sodium [Moles/Vol] 128 mmol/L Low 133-145 [facility] Squamous epithelial cells de tection in urine sediment by light microscopyOrdered By: Jim Shah on 10-10-2024 Epithelial cells.squamous LM Ql (Urine sed) 0-5 SEEN /hpf 5-10 [facility] TSH DL <= 0.005 mIU/L QnOrde red By: Son Quiroga on 10-10-2024 TSH Qn 3.000 uIU/mL 0.300-4.200 [facility] Thyroid Stim Hormone (TSH)on 10-10-2024 TSH 3.000 uIU/mL Normal 0.300-4.200 [facility] Comment on above: Performed By: #### L 501.9520, L503.0106, L501.9985 ####[facility] [address] [place], [address] Total proteinOrdered By: Rahat MatuteVish on 10-10-2024 Protein [Mass/Vol] 5.8 g/dL Low 5.9-8.4 [facility] Troponin T.cardiac [Mass/vol ume] in Serum or Plasma by High sensitivity methodOrdered By: Jim Shah on 10-10-2024 Troponin T.cardiac High sensitivity method [Mass/Vol] 97 ng/L High <14 [facility] Comment on above: Delta: 89 on 5-1850Hemolysis present, Results could be affected. Critical Result(s) Called at: by: Results read back by same.Critical Result(s) Called at: by: Results read back by same.Critical Result(s) Called at: by: Results read back by same.Critical Result(s) Called at: 1918 by: JIMENA PIEDRA TO EB FRANK Results read back by same. Troponin T.cardiac High sensitivity method [Mass/Vol] 104 ng/L High <14 [facility] Comment on above: Critical Result(s) C alled at 0103: by: DOUG TO MARILIA Results read back by same. Urinalysis, Completeon 10-10 RBC 5-10 SEEN Normal 0-5 [facility] Comment on above: Order Comment: MUNDO CTOR TO SPECIFY Performed By: #### L 400.0001 ####[facility] [address] [place], [address] EPI,SQUAMOUS 0-5 SEEN Normal 5-10 [facility] Comment on above: Order Comment: MUNDO CTOR TO SPECIFY Performed By: #### L 400.0001 ####[facility] [address] [place], [address] WBC 10-25 SEEN Normal 0-5 [facility] Comment on above: Order Comment: MUNDO CTOR TO SPECIFY Performed By: #### L 400.0001 ####[facility] [address] [place], [place], [address] BACTERIA 0 SEEN Normal None Seen [facility] Comment on above: Order Comment: MUNDO CTOR TO SPECIFY Performed By: #### L 400.0001 ####[facility] [address] [place], [place], [address] Mucus Ql (Urine sed) 0 SEEN Normal [facility] Comment on above: Order Comment: MUNDO CTOR TO SPECIFY Performed By: #### L 400.0001 ####[facility] [address] [place], [place], [address] Urine Legionella pneumophila antigen detectionOrdered By: Son Quiroga on 10-10-2024 L. pneumophila Ag Ql (U) [facility] Urine clarityOrdered By: Rahat Shah on 10-10-2024 Clarity (U) Sl. Cloudy Clear [facility] Urine color determinationOrd ered By: Jim Shah on 10-10-2024 Color (U) Straw Yellow [facility] Urine cultureOrdered By: Rahat Shah on 10-10-2024 Bacteria identified Cx Nom (U) Streptococcus sanguinis Abnormal [facility] Bacteria identified Cx Nom (U) Negative Abnormal [facility] Urine glucose detectionOrder ed By: Jim Shah on 10-10-2024 Glucose Ql (U) 1000 mg/dl High Normal [facility] Urine leukocyte esterase det ection by dipstickOrdered By: Jim Shah on 10-10-2024 Leukocyte esterase Test strip Ql (U) 500 /ul High Negative [facility] Urine pHOrdered By: Jim Wahl on 10-10-2024 pH (U) 6.0 [pH] 5.0 - 8.0 [facility] Urine sediment bacteria coun t by microscopy (number/high power field)Ordered By: Jim Shah on 10-10-2024 Bacteria LM.HPF (Urine sed) [#/Area] 0 /[HPF] None Seen [facility] Urine specific gravity measu rementOrdered By: Jim Shah on 10-10-2024 Specific gravity (U) [Rel density] 1.010 1.002-1.030 [facility] Urine urobilinogen measureme ntOrdered By: Jim Shah on 10-10-2024 Urobilinogen Ql (U) Normal mg/dl Normal [facility] Venous Blood Gason 5 Blood Gas Type LILIANA Normal [facility] Comment on above: Performed By: #### L 9000.0810 ####[facility] [address] [place], [address] CO2 [Moles/Vol] 28 mmol/L Normal 23-33 [facility] Comment on above: Performed By: #### L 9000.0810 ####[facility] [address] [place], [address] FI02 2.0 Normal [facility] Comment on above: Performed By: #### L 9000.0810 ####[facility] [address] [place], [address] HCO3 (Bld) [Moles/Vol] 27 mmol/L High 22-26 [facility] Comment on above: Performed By: #### L 9000.0810 ####[facility] [address] [place], [address] O2 Delivery Dev Cannula Normal [facility] Comment on above: Performed By: #### L 9000.0810 ####[facility] [address] [place], [address] SITE Not entered [facility] Comment on above: Performed By: #### L 9000.0810 ####[facility] [address] [place], [address] VBG BE 3 mmol/L Normal -1.0-3.5 [facility] Comment on above: Performed By: #### L 9000.0810 ####[facility] [address] [place], [address] VBG pCO2 37.6 mmHg Low 41-51 [facility] Comment on above: Performed By: #### L 9000.0810 ####[facility] [address] [place], [address] VBG pH 7.46 High 7.32-7.42 [facility] Comment on above: Performed By: #### L 9000.0810 ####[facility] [address] [place], [address] VBG PO2 45 mmHg High 25-40 [facility] Comment on above: Performed By: #### L 9000.0810 ####[facility] [address] [place], [address] VBG SO2 83 High 50-70 [facility] Comment on above: Performed By: #### L 9000.0810 ####[facility] [address] [place], [address] Venous Duplex US - Gayathri Extre mon 10-10-2024 Venous Duplex US - Gayathri Extrem Normal [facility] Venous blood base excess lino surementOrdered By: Jim Shah on 10-10-2024 Base excess Calc (BldV) [Moles/Vol] 3 mmol/L -1.0-3.5 [facility] Venous blood bicarbonate lino surementOrdered By: Jim Shah on 10-10-2024 HCO3 (Bld) [Moles/Vol] 27 mmol/L High 22-26 [facility] Venous blood oxygen saturati on measurementOrdered By: Jim Shah on 10-10-2024 Oxygen saturation in Blood 83 % High 50-70 [facility] Venous blood pH measurementO rdered By: Jim Shah on 10-10-2024 pH (BldV) 7.46 [pH] High 7.32-7.42 [facility] Venous blood partial pressur e of carbon dioxide measurementOrdered By: Jim Shah on 10-10-2024 CO2 (BldV) [Partial pressure] 37.6 mm[Hg] Low 41-51 [facility] Venous blood partial pressur e of oxygen measurementOrdered By: Jim Terrell on 10-10-2024 Oxygen (BldV) [Partial pressure] 45 mm[Hg] High 25-40 [facility] Vitamin B12on 10-10-2024 Cobalamin (Vitamin B12) [Mass/Vol] 357 pg/mL Normal 180-914 [facility] Comment on above: Performed By: #### L 501.9520, L503.0106, L501.9985 ####[facility] [address] [place], [address] Vitamin B12 ser/plasOrdered By: Son Quiroga on 10-10-2024 Cobalamin (Vitamin B12) [Mass/Vol] 357 pg/mL 180-914 [facility] White blood cell (WBC) count Ordered By: Jim Shah on 10-10-2024 WBC (Bld) [#/Vol] 6.0 10*3/uL 4.4-11.0 [facility] White blood cell countOrdere d By: Jim Shah on 10-10-2024 White blood cell count 10-25 SEEN /hpf 0-5 [facility] CNPNon 09-19-2024 NOYN Telephone (PAUL) Margareth GONZALEZ ([id number]) 1965 F Date Time Provider Department 09/19/24 ALONDRA CHUNG During your visit today, we recorded the following information about you: Esperanza Post 09/19/2024 1:43 PM Signed SLEEPPAREQUEST A PA has been received via fax. Requested by: Joshua Callback #: Medication: Pregabalin Dosage: 25 mg Soriano: [id number] Nataly Burns LPN 09/20/2024 4:42 PM Signed Tried to complete through Cover My Meds. Did not recognized Pt. Called [employer] and did PA over the phone. PA Authorization # [id number] good for 03/02/2024 to 03/01/2025. Called Pt earlier to [employer] out of service. Did speak with EC and they will have Pt call back. Please notifie Pt PA was approved. NEHAL Groves Krystle, RN 09/22/2024 8:42 AM Signed Patient returns call from dialysis center phone and notified that lyrica has been approved with verbalized understanding. Patient missed last OV with [facility] as she thought it was this coming week. Will call back to schedule as she is currently at dialysis and it is not convenient. Diana Brand RN Allergies As of Date: 09/19/2024 Noted Allergy Reaction VICODIN (HYDROCODONE-ACETAMINO PHE*09/23/2007 11 - Vomiting BALSAM 115 09/23/2007 BALSAM JUAN 09/10/2022 16 - Unknown BARIUM SULFATE 05/01/2023 16 - Unknown BENADRYL ALLERGY DECONGESTANT 05/01/2023 9 - Itching BENADRYL (DIPHENHYDRAMINE HCL) 09/23/2007 2 - Rash 9 - Itching CODEINE 09/23/2007 11 - Vomiting 14 - Other: See Comments LISINOPRIL 05/26/2008 15 - Contraindication-Medic al [facility]* Comments: Acute renal failure MOLD 09/23/2007 [...] for nausea/vomiting. - CPAP/BIPAP/OTHER APAP 5-20 cmH2O [facility] - Blood-Glucose Meter (ONETOUCH VERIO [...] - Blood-Glucose Meter,Continuous (FREESTYLE FESTUS 3 READER) [facility] Dispense one reader kit. E11.9 DIALYSIS PATIENT [...] 5,000 Units by mouth twice daily. - Qzqoixmi-Cf-Sek-Fe-FA ( VITAMIN) ORAL Tab Take 1 tablet [...] 03/09/2008 04/16/19 (more content not included)... Normal [facility] CNOVon 09-12-2024 CNOV Office Visit (PULMWS ) LISAMargareth BARRETT ([id number]) 1965 F [place] Date Time Provider Department 09/12/24 1:30 PM LIZ FERREIRA PULMWS During your visit today, we recorded the following information about you: Pulse Respiration Blood pressure 77/minute 18/minute 102/60 Liz Ferreira MD 09/12/2024 2:25 PM Signed . Respiratory [place] Note Patient name: Margareth Gonzalez PCP: Ignacio Cheatham MD Referring Physician: Kristy Marcum CNP Recording using ambient AI software for draft documentation of the visit was discussed with the patient/authorized education courses sales representative; all questions welcomed and answered. Patient/authorized education courses sales representative agreed to proceed CC: lung nodules HPI: Margareth Gonzalez 59 year old female former remote 05-dymd-fymc smoker quitting in 1989 with PMH significant [...] She was just seen in ED at [facility] for sob and chest pain. CTA [...] DATE OF EXAM: Jul 27 2024 2:44PM [facility] 0541 - CT CHEST WO IVCON / [...] seen within the chest. Chest CT 04/2023: [facility] Imaging Services [address] [place] [address] CTA Chest W/WO Contrast MR#: [id number] Acct: [id number] Name: Margareth GONZALEZ Rep #: [id number] : 1965 F 59 From: [facility] [...] Depression Diabetes (HCC) Diarrhea DVT, lower extremity ([facility]) 08/2014 Right leg (6) Esophagitis ESRD (end stage renal disease) ([facility]) 07/03/2022 Facial fracture due to fall ([facility]) Fatigue Fibromyalgia Fracture Fracture of shaft [...] Personal history (more content not included)... Normal [facility] CNPAnika 09-07-2024 CNPN Telephone (FAMPWS) Margareth GONZALEZH ([id number]) 1965 F [place] Date Time Provider Department 09/07/24 IGNACIO CHEATHAMWS During your visit today, we recorded the following information about you: Georgina Salmon RN 09/07/2024 4:19 PM Signed Patient calling to state she was taken to [facility] ER yesterday via squad due to [...] sister as soon as this call ended. DALE Lemus William J, MD 09/07/2024 4:36 PM Signed agree Allergies As of Date: 09/07/2024 Noted Allergy Reaction VICODIN (HYDROCODONE-ACETAMINO PHE*09/23/2007 11 - Vomiting BALSAM 115 09/23/2007 BALSAM JUAN 09/10/2022 16 - Unknown BARIUM SULFATE 05/01/2023 16 - Unknown BENADRYL ALLERGY DECONGESTANT 05/01/2023 9 - Itching BENADRYL (DIPHENHYDRAMINE HCL) 09/23/2007 2 - Rash 9 - Itching CODEINE 09/23/2007 11 - Vomiting 14 - Other: See Comments LISINOPRIL 05/26/2008 15 - Contraindication-Medic al [facility]* Comments: Acute renal failure MOLD 09/23/2007 NSAIDS (NON-STEROIDAL ANTI-INFLAM*09/13/2012 14 - Other: See Comments Comments: Unable to take nsaids after having gastric bypass. PENICILLINS 09/23/2007 10 - Anaphylaxis SEASONAL ALLERGIES 12/14/2008 14 - Other: See Comments Comments: Nose runs, sneezing... TETRACYCLINE 09/23/2007 2 - Rash VANILLA EXTRACT 09/23/2007 VANILLA EXTRACT FLAVOR 09/10/2022 16 - Unknown Date Reviewed: 08/26/2024 Reviewed by: Laura Levin RN - Fully Assessed Reason for Visit: Breathing Problem [17] Prescriptions as of 09/07/2024 - clopidogrel (PLAVIX) 75 mg tablet Take 1 tablet by mouth once daily. - ondansetron orally disintegrating (ZOFRAN ODT) 4 mg disintegrating tablet Take 1 tablet by mouth every 8 hours as needed for nausea/vomiting. - CPAP/BIPAP/OTHER APAP 5-20 cmH2O [facility] - Blood-Glucose Meter (ONETOUCH VERIO [...] - Blood-Glucose Meter,Continuous (FREESTYLE FESTUS 3 READER) [facility] Dispense one reader kit. E11.9 DIALYSIS PATIENT [...] 5,000 Units by mouth twice daily. - Ertkwjuy-Pk-Scv-Fe-FA ( VITAMIN) ORAL Tab Take 1 tablet by mouth once daily. Meds Comments as of 11/28/2017: Pt states all meds were just gone over. Did not go over meds. Swathi Haddad Ma November 28, 2017 Problem List As Of Date 09/07/2024 Noted Resolved Acute gastritis [K29.00] 12/16/2007 08/04/2022 DM w/o complication type II, u (more content not included)... Normal [facility] 12 Lead EKGon 09-06-2024 12 Lead EKG Normal [facility] Absolute lymphocyte countOrd ered By: Johnathon Robertson on 09-06-2024 Lymphocytes Auto (Unsp spec) [#/Vol] 0.80 10*3/uL Low 0.83-4.51 [facility] Absolute neutrophil countOrd ered By: Johnathon Robertson on 09-06-2024 Neutrophils (Bld) [#/Vol] 3.0 10*3/uL 2.0-7.7 [facility] Anion gap in Serum or Plasma Ordered By: Johnathon Robertson on 09-06-2024 Anion gap [Moles/Vol] 14 mmol/L 5-15 [facility] Automated lymphocyte count a s percentage of total leukocytesOrdered By: Johnathon Robertson on 09-06-2024 Lymphocytes/100 WBC Auto (Unsp spec) 18.7 % Low 19-41 [facility] BUN/creatinine ratioOrdered By: Johnathon Robertson on 09-06-2024 Urea nitrogen/Creatinine [Mass ratio] 4.2 mg/mg Low 10-20 [facility] Basic Metabolic Profile (BMP )on 09-06-2024 BUN/CRE 4.2 RATIO Low 10-20 [facility] Comment on above: Performed By: #### L 500.2500, L501.4021, L100.0100 ####[facility] [address] [place], [address] Calcium [Mass/Vol] 8.8 mg/dL Normal 7.6-11.0 [facility] Comment on above: Performed By: #### L 500.2500, L501.4021, L100.0100 ####[facility] [address] [place], [address] Chloride [Moles/Vol] 93 mmol/L Low 98-108 [facility] Comment on above: Performed By: #### L 500.2500, L501.4021, L100.0100 ####[facility] [address] [place], [address] CO2 [Moles/Vol] 26.5 mmol/L Normal 21.0-32.0 [facility] Comment on above: Performed By: #### L 500.2500, L501.4021, L100.0100 ####[facility] [address] [place], [address] Creatinine [Mass/Vol] 4.01 mg/dL High 0.70-1.20 [facility] Comment on above: Performed By: #### L 500.2500, L501.4021, L100.0100 ####[facility] [address] [place], [address] ECRCL 17.48 ml/min Low 50-250 [facility] Comment on above: Performed By: #### L 500.2500, L501.4021, L100.0100 ####[facility] [address] [place], [address] GAP 14 Normal 5-15 [facility] Comment on above: Performed By: #### L 500.2500, L501.4021, L100.0100 ####[facility] [address] [place], [address] GFR/1.73 sq M.predicted among non-blacks MDRD (S/P/Bld) [Vol rate/Area] 12 mL/min/{1.73_m2} Low >60 [facility] Comment on above: Result Comment: mL/m in/1.73m2 CKD-EPI Creatinine Equation (2020) Performed By: #### L 500.2500, L501.4021, L100.0100 ####[facility] [address] [place], [address] Glucose [Mass/Vol] 174 mg/dL High 70-99 [facility] Comment on above: Performed By: #### L 500.2500, L501.4021, L100.0100 ####[facility] [address] [place], [address] Potassium [Moles/Vol] 4.8 mmol/L Normal 3.3-5.1 [facility] Comment on above: Result Comment: Hemo lysis present, Results??could be affected.?? Performed By: #### L 500.2500, L501.4021, L100.0100 ####[facility] [address] [place], [address] Sodium [Moles/Vol] 133 mmol/L Normal 133-145 [facility] Comment on above: Performed By: #### L 500.2500, L501.4021, L100.0100 ####[facility] [address] [place], [address] Urea nitrogen [Mass/Vol] 17 mg/dL Normal 4-19 [facility] Comment on above: Performed By: #### L 500.2500, L501.4021, L100.0100 ####[facility] [address] [place], [address] Basophil percentageOrdered B y: Johnathon Robertson on 09-06-2024 Basophils/100 WBC (Bld) 0.7 % 0-1 [facility] CBC W/Diff, Automatedon Absolute Lymph 0.80 X10 3/uL Low 0.83-4.51 [facility] Comment on above: Performed By: #### L 500.2500, L501.4021, L100.0100 ####[facility] [address] [place], [address] Absolute Neut 3.0 X10 3/uL Normal 2.0-7.7 [facility] Comment on above: Performed By: #### L 500.2500, L501.4021, L100.0100 ####[facility] [address] [place], [address] Basophils/100 WBC (Bld) 0.7 % Normal 0-1 [facility] Comment on above: Performed By: #### L 500.2500, L501.4021, L100.0100 ####[facility] [address] [place], [address] Eosinophils/100 WBC (Bld) 3.7 % Normal 0-5 [facility] Comment on above: Performed By: #### L 500.2500, L501.4021, L100.0100 ####[facility] [address] [place], [address] Erythrocyte distribution width (RBC) [Ratio] 14.3 % Normal 11.6-14.6 [facility] Comment on above: Performed By: #### L 500.2500, L501.4021, L100.0100 ####[facility] [address] [place], [address] Hematocrit (Bld) [Volume fraction] 33.9 % Low 37-47 [facility] Comment on above: Performed By: #### L 500.2500, L501.4021, L100.0100 ####[facility] [address] [place], [address] Hemoglobin (Bld) [Mass/Vol] 11.0 g/dL Low 12.0-15.0 [facility] Comment on above: Performed By: #### L 500.2500, L501.4021, L100.0100 ####[facility] [address] [place], [address] IG% 0.200 Normal 0.0-0.9 [facility] Comment on above: Result Comment: IG% - Immature Granulocytes (promyelocytes, myelocytes andmetamyelocytes) > 1% indicates that a LEFT SHIFT is Present. Performed By: #### L 500.2500, L501.4021, L100.0100 ####[facility] [address] [place], [address] Lymphocytes/100 WBC (Bld) 18.7 % Low 19-41 [facility] Comment on above: Performed By: #### L 500.2500, L501.4021, L100.0100 ####[facility] [address] [place], [address] MCH (RBC) [Entitic mass] 31.2 pg Normal 27.0-32.0 [facility] Comment on above: Performed By: #### L 500.2500, L501.4021, L100.0100 ####[facility] [address] [place], [address] MCHC (RBC) [Mass/Vol] 32.4 g/dL Normal 32-36 [facility] Comment on above: Performed By: #### L 500.2500, L501.4021, L100.0100 ####[facility] [address] [place], [address] MCV (RBC) [Entitic vol] 96.0 fL Normal 81-99 [facility] Comment on above: Performed By: #### L 500.2500, L501.4021, L100.0100 ####[facility] [address] [place], [address] Monocytes/100 WBC (Bld) 7.5 % Normal 0-10 [facility] Comment on above: Performed By: #### L 500.2500, L501.4021, L100.0100 ####[facility] [address] [place], [address] Neutrophils/100 WBC (Bld) 69.2 % Normal 47-70 [facility] Comment on above: Performed By: #### L 500.2500, L501.4021, L100.0100 ####[facility] [address] [place], [address] Nucleated RBC (Bld) [#/Vol] 0 10*3/uL Normal 0-5 [facility] Comment on above: Performed By: #### L 500.2500, L501.4021, L100.0100 ####[facility] [address] [place], [address] Platelet mean volume (Bld) [Entitic vol] 10.4 fL Normal 6.2-12.0 [facility] Comment on above: Performed By: #### L 500.2500, L501.4021, L100.0100 ####[facility] [address] [place], [address] Platelets (Bld) [#/Vol] 176 10*3/uL Normal 150-450 [facility] Comment on above: Performed By: #### L 500.2500, L501.4021, L100.0100 ####[facility] [address] [place], [address] RBC (Bld) [#/Vol] 3.53 10*6/uL Low 4.2-5.[address] [facility] Comment on above: Performed By: #### L 500.2500, L501.4021, L100.0100 ####[facility] [address] [place], [address] RDW SD 49.5 fl High 35.1-43.9 [facility] Comment on above: Performed By: #### L 500.2500, L501.4021, L100.0100 ####[facility] [address] [place], [address] WBC (Bld) [#/Vol] 4.3 10*3/uL Low 4.4-11.0 [facility] Comment on above: Performed By: #### L 500.2500, L501.4021, L100.0100 ####[facility] [address] [place], [address] [facility] Margareth GONZALEZ ([id number]) 1965 F Date Time Provider Department 09/06/24 [...] of Date: 09/06/2024 Noted Allergy Reaction VICODIN (HYDROCODONE-ACETAMINO PHE*09/23/2007 11 - Vomiting BALSAM 115 09/23/2007 BALSAM JUAN 09/10/2022 16 - Unknown BARIUM SULFATE 05/01/2023 16 - Unknown BENADRYL ALLERGY DECONGESTANT 05/01/2023 9 - Itching BENADRYL (DIPHENHYDRAMINE HCL) 09/23/2007 2 - Rash 9 - Itching CODEINE 09/23/2007 11 - Vomiting 14 - Other: See Comments LISINOPRIL 05/26/2008 15 - Contraindication-Medic al [facility]* Comments: Acute renal failure MOLD 09/23/2007 NSAIDS (NON-STEROIDAL ANTI-INFLAM*09/13/2012 14 - Other: See Comments Comments: Unable to take nsaids after having gastric bypass. PENICILLINS 09/23/2007 10 - Anaphylaxis SEASONAL ALLERGIES 12/14/2008 14 - Other: See Comments Comments: Nose runs, sneezing... TETRACYCLINE 09/23/2007 2 - Rash VANILLA EXTRACT 09/23/2007 VANILLA EXTRACT FLAVOR 09/10/2022 16 - Unknown Date Reviewed: 08/26/2024 Reviewed by: Laura Levin, RN - Fully Assessed Reason for Visit: FYI-No Action Needed [265] Prescriptions as of 09/06/2024 - clopidogrel (PLAVIX) 75 mg tablet Take 1 tablet by mouth once daily. - ondansetron orally disintegrating (ZOFRAN ODT) 4 mg disintegrating tablet Take 1 tablet by mouth every 8 hours as needed for nausea/vomiting. - CPAP/BIPAP/OTHER APAP 5-20 cmH2O [facility] - Blood-Glucose Meter (ONETOUCH VERIO [...] - Blood-Glucose Meter,Continuous (FREESTYLE FESTUS 3 READER) [facility] Dispense one reader kit. E11.9 DIALYSIS PATIENT [...] 5,000 Units by mouth twice daily. - Iwzafrkk-Vh-Ykg-Fe-FA ( VITAMIN) ORAL Tab Take 1 tablet [...] pain [ (more content not included)... Normal [facility] CTA Chest W/WO Contraston CTA Chest W/WO Contrast Normal [facility] Carbon dioxide, total [Moles /volume] in Central venous bloodOrdered By: Johnathon Robertson on 09-06-2024 CO2 [Moles/Vol] 26.5 mmol/L 21.0-32.0 [facility] Chest 1 View (Portable)on Chest 1 View (Portable) Normal [facility] Chloride assayOrdered By: Tyree Robertson on 09-06-2024 Chloride [Moles/Vol] 93 mmol/L Low 98-108 [facility] D-Dimer Quantitative (DVT/PE )on 09-06-2024 D-DIMER QUANT 1.90 FEU/ug/m Invalid Interpretation Code 0.27-0.49 [facility] Comment on above: Result Comment: D-Di britt ELEVATED (>0.49): Additional studies and clinicalassessments are indicated to conclude diagnosis of:Deep Vein Thrombosis (DVT) or Pulmonary Embolism (PE)CRITICAL VALUE CALLED TO BONY BOYD09/06/241952 Laine Leblanc.RESULTS READ BACK BY SAME. Performed By: #### L 300.8000 ####[facility] [address] [place], [address] Emergency Department Summary on 09-06-2024 Emergency Department Summary Normal [facility] Eosinophil percentageOrdered By: Johnathon Robertson on 09-06-2024 Eosinophils/100 WBC (Bld) 3.7 % 0-5 [facility] Erythrocyte distribution wid th ratioOrdered By: Johnathon Robertson on 09-06-2024 Erythrocyte distribution width (RBC) [Ratio] 14.3 % 11.6-14.6 [facility] Erythrocyte distribution wid th standard deviationOrdered By: Johnathon Robertson on 09-06-2024 Erythrocyte distribution width (RBC) [Ratio] 49.5 fl High 35.1-43.9 [facility] Glomerular filtration rate ( GFR) estimation/1.73 sq m using serum, plasma, or whole bOrdered By: Johnathon Robertson on 09-06-2024 GFR/1.73 sq M.predicted among non-blacks MDRD (S/P/Bld) [Vol rate/Area] 12 mL/min/{1.73_m2} Low >60 [facility] Comment on above: mL/min/1.73m2 CKD-EP I Creatinine Equation (2020) Hematocrit Auto (Bld) [Volum e fraction]Ordered By: Johnathon Robertson on 09-06-2024 Hematocrit (Bld) [Volume fraction] 33.9 % Low 37-47 [facility] Hemoglobin measurementOrdere d By: Johnathon Robertson on 09-06-2024 Hemoglobin (Bld) [Mass/Vol] 11.0 g/dL Low 12.0-15.0 [facility] Immature granulocytes/100 WB C Auto (Bld)Ordered By: Johnathon Robertson on 09-06-2024 Immature granulocytes/100 WBC (Bld) 0.200 % 0.0-0.9 [facility] Comment on above: IG% - Immature Granu locytes (promyelocytes, myelocytes and metamyelocytes) > 1% indicates that a LEFT SHIFT is Present. L499.0042on 09-06-2024 Trop T High Sen 90 ng/L Invalid Interpretation Code <=14 [facility] Comment on above: Result Comment: Crit ical Result(s) Called [facility] at: 2156 by:NIECY??Results read back by same. Performed By: #### L 499.0042 ####[facility] [address] [place], [address] L499.0043on 09-06-2024 Trop T High Sen Normal <=14 [facility] Comment on above: Result Comment: PT D ISCHARGED Performed By: #### L 499.0043 ####[facility] [address] [place], [address] L501.4021on 09-06-2024 Trop T High Sen 89 ng/L Invalid Interpretation Code <=14 [facility] Comment on above: Result Comment: Crit ical Result(s) Called [facility] at: 1940 by:NIECY??Results read back by same. Performed By: #### L 500.2500, L501.4021, L100.0100 ####[facility] [address] [place], [address] MCV (mean corpuscular volume ) determinationOrdered By: Johnathon Robertson on 09-06-2024 MCV (RBC) [Entitic vol] 96.0 fL 81-99 [facility] Mean corpuscular hemoglobin (MCH) determinationOrdered By: Johnathon Robertson on 09-06-2024 MCH (RBC) [Entitic mass] 31.2 pg 27.0-32.0 [facility] Mean corpuscular hemoglobin concentration (MCHC) determinationOrdered By: Johnathon Robertson on 09-06-2024 MCHC (RBC) [Mass/Vol] 32.4 g/dL 32-36 [facility] Mean platelet volume determi nationOrdered By: Johnathon Robertson on 09-06-2024 Platelet mean volume (Bld) [Entitic vol] 10.4 fL 6.2-12.0 [facility] Monocyte percentageOrdered B y: Johnathon Robertson on 09-06-2024 Monocytes/100 WBC (Bld) 7.5 % 0-10 [facility] Neutrophil percentageOrdered By: Johnathon Robertson on 09-06-2024 Neutrophils/100 WBC (Bld) 69.2 % 47-70 [facility] Nucleated red blood cell per centageOrdered By: Johnathon Robertson on 09-06-2024 Nucleated RBC/100 WBC (Bld) [Ratio] 0 % 0-5 [facility] Platelet countOrdered By: Tyree Robertson on 09-06-2024 Platelets (Bld) [#/Vol] 176 10*3/uL 150-450 [facility] Potassium measurement (mass/ volume)Ordered By: Johnathon Robertson on 09-06-2024 Potassium (Unsp spec) [Mass/Vol] 4.8 mmol/L 3.3-5.1 [facility] Comment on above: Hemolysis present, R esults could be affected. RBC Auto (Bld) [#/Vol]Ordere d By: Johnathon Robertson on 09-06-2024 RBC (Bld) [#/Vol] 3.53 10*6/uL Low 4.2-5.[address] [facility] Serum creatinine measurement (mass/volume)Ordered By: Johnathon Robertson on 09-06-2024 Creatinine [Mass/Vol] 4.01 mg/dL High 0.70-1.20 [facility] Serum glucose measurement (m ass/volume)Ordered By: Johnathon Robertson on 09-06-2024 Glucose [Mass/Vol] 174 mg/dL High 70-99 [facility] Serum or plasma calcium joya urement (mass/volume)Ordered By: Johnathon Robertson on 09-06-2024 Calcium [Mass/Vol] 8.8 mg/dL 7.6-11.0 [facility] Serum or plasma urea nitroge n measurement (mass/volume)Ordered By: Johnathon Robertson on 09-06-2024 Urea nitrogen [Mass/Vol] 17 mg/dL 4-19 [facility] Sodium levelOrdered By: Johnathon Robertson on 09-06-2024 Sodium [Moles/Vol] 133 mmol/L 133-145 [facility] Troponin T.cardiac [Mass/vol ume] in Serum or Plasma by High sensitivity methodOrdered By: Johnathon Robertson on 09-06-2024 Troponin T.cardiac High sensitivity method [Mass/Vol] 90 ng/L High <14 [facility] Comment on above: Critical Result(s) C amy TORRES at: 2156 by: NIECY Results read back by same. Troponin T.cardiac High sensitivity method [Mass/Vol] 89 ng/L High <14 [facility] Comment on above: Critical Result(s) C amy YEE at: 1940 by: NIECY Results read back by same. White blood cell (WBC) count Ordered By: Johnathon Robertson on 09-06-2024 WBC (Bld) [#/Vol] 4.3 10*3/uL Low 4.4-11.0 [facility] HISTORY PHYSICALon HISTORY PHYSICAL HNO ID: [id number] Author: ELEUTERIO WILLIAMSON MD Service: Vascular Surgery [...] DATE: August 26, 2024 TIME: 10:[address] [facility] OPERATIVE NOon 08-26-2024 OPERATIVE NO HNO ID: [id number] Author: ELEUTERIO WILLIAMSON MD Service: Vascular Surgery Author Type: Physician Type: Operative Report Filed: 08/28/2024 20:40 Note Text: OPERATIVE/PROCEDURE REPORT LOG ID: [id number] Surgery/Procedure Date: 08/26/2024 Incision/Procedure Start Time: 11:21 AM Incision Close/Procedure End Time: 11:45 AM Surgeon(s)/Procedurali st(s) and Workforce Management Analyst(s): Surgeons and Role: * Eleuterio Williamson MD [...] details: The patient was taken to the laboratory technical specialist and laid supine on the operating table. [...] The needle was exchanged out for a 4-Australian micropuncture sheath. The transitional sheath was used [...] sheath was then upsized to a short 6-Australian sheath. The stenosis was crossed and ballooned [...] to the recovery area in stable condition. Pre-Op/Pre-Procedure Diagnosis: ESRD on hemodialysis, hemodialysis access malfunction Post-Op/Post-Procedure Diagnosis: Same Estimated Blood Loss: 10 ml Specimens: None Implantable Devices: None Drains: None Complications: None I/primary surgeon/proceduralist performed the entire procedure. No qualified resident/fellow was available. Eleuterio Williamson MD [facility] 08-24-2024 [facility] Telephone ([employer] Monitoring) Margareth GONZALEZ ([id number]) 1965 F Date Time Provider Department 08/24/24 CHLOE ELLINGTON [facility] During your visit today, we recorded the following information about you: Chloe Ellington, RN 08/24/2024 12:30 PM Signed You will [...] of Date: 08/24/2024 Noted Allergy Reaction VICODIN (HYDROCODONE-ACETAMINO PHE*09/23/2007 11 - Vomiting BALSAM 115 09/23/2007 BALSAM JUAN 09/10/2022 16 - Unknown BARIUM SULFATE 05/01/2023 16 - Unknown BENADRYL ALLERGY DECONGESTANT 05/01/2023 9 - Itching BENADRYL (DIPHENHYDRAMINE HCL) 09/23/2007 2 - Rash 9 - Itching CODEINE 09/23/2007 11 - Vomiting 14 - Other: See Comments LISINOPRIL 05/26/2008 15 - Contraindication-Medic al [facility]* Comments: Acute renal failure MOLD 09/23/2007 [...] for nausea/vomiting. - CPAP/BIPAP/OTHER APAP 5-20 cmH2O [facility] - Blood-Glucose Meter (HandmarkUCH VERIO FLEX METER) Dispense one meter kit. E11.9 - blood sugar diagnostic (ONETOUCH VERIO TEST STRIPS) test strip Checks once per day to calibrate CGM - lancets (HandmarkUCH DELICA PLUS LANCET) 33 gauge Checks once per day to calibrate CGM E11.9 - Blood-Glucose Sensor (FREESTYLE FESTUS 3 PLUS SENSOR) natty CHANGE SENSOR EVERY 15 days, USE FOR CONTINUOUS GLUCOSE MONITORING. E11.9 DIALYSIS PATIENT - Blood-Glucose Meter,Continuous (FREESTYLE FESTUS 3 READER) [facility] Dispense one reader kit. E11.9 DIALYSIS PATIENT [...] 5,000 Units by mouth twice daily. - Zheuwstd-At-Ujx-Fe-FA ( VITAMIN) ORAL Tab Take 1 tablet [...] [R60.9] 09/21/2008 Ulcer of heel and midfoot ([facility]) [L97.409] 02/08/2009 04/16/2017 Chronic pain [G89.29] 09/24/2009 02/21/2019 Fibromyalgia [M79.7] 09/24/2009 Neuropathy [G62.9] 09/24/2009 Elbow joint pain [M25.529] 09/24/2009 04/20/2020 Generalized pain [R52] 10/01/2009 02/21/2019 ACL tear [ (more content not included)... Normal [facility] 08-12-2024 [facility] Telephone (VASSMD) Margareth GONZALEZ ([id number]) 1965 F Date Time Provider Department 08/12/24 SAIRA JACKSON [facility] During your visit today, we recorded the following information about you: Jenni Castro RN 08/12/2024 4:15 PM Signed Patient calling, she is scheduled for fistulagram on 08/19 however needs to change the time from 1245 to 9 am if possible Attempted to call patient but unable to leave a message Please call patient to reschedule [phone] Ashley Fraire 08/15/2024 12:36 PM Signed Spoke to patient to offer a new date, she will check with her transportation and call back. Ashley Fraire 08/15/2024 1:44 PM Signed Spoke to patient to move her fistulagram to August 26 because that is when he can get transpiration. Encounter closed. Allergies As of Date: 08/12/2024 Noted Allergy Reaction VICODIN (HYDROCODONE-ACETAMINO PHE*09/23/2007 11 - Vomiting BALSAM 115 09/23/2007 BALSAM JUAN 09/10/2022 16 - Unknown BARIUM SULFATE 05/01/2023 16 - Unknown BENADRYL ALLERGY DECONGESTANT 05/01/2023 9 - Itching BENADRYL (DIPHENHYDRAMINE HCL) 09/23/2007 2 - Rash 9 - Itching CODEINE 09/23/2007 11 - Vomiting 14 - Other: See Comments LISINOPRIL 05/26/2008 15 - Contraindication-Medic al [facility]* Comments: Acute renal failure MOLD 09/23/2007 [...] for nausea/vomiting. - CPAP/BIPAP/OTHER APAP 5-20 cmH2O [facility] - Blood-Glucose Meter (ONETOUCH VERIO [...] 5,000 Units by mouth twice daily. - Bpvjhuoc-Lq-Opd-Fe-FA ( VITAMIN) ORAL Tab Take 1 tablet by mouth once daily. Meds Comments as of 11/28/2017: Pt states all meds were just gone over. Did not go over meds. [facility] [address] [facility] November 28, 2017 Problem List As Of [...] nail [B35.1] (more content not included)... Normal [facility] CNCOon 08-10-2024 CNCO Letter Text Normal [facility] CNOVon 08-10-2024 CNOV Office Visit (UCWSTR ) Margareth GONZALEZ ([id number]) 1965 F [place] Date Time Provider Department 08/10/24 1:30 PM HEVER CHEEMA WSTR During your visit today, we recorded the following information about you: Temperature Pulse Respiration Blood pressure 98 degrees 100/minute 20/minute 158/80 Weight 85 kg Hever Cheema, PATRICE.SALOONKEEPER 08/10/2024 2:49 PM Signed Subjective Patient ID: Arnold is a 59 year old female who presents for No chief complaint on file.. The history is provided by the patient. No official court interpreter was used. Patient presents to clinic via [...] Chronic kidney disease Contraceptive management Depression Diabetes ([facility]) Diarrhea DVT, lower extremity ([facility]) 08/2014 Right leg (6) Esophagitis ESRD (end stage renal disease) ([facility]) 07/03/2022 Facial fracture due to fall ([facility]) Fatigue Fibromyalgia Fracture Fracture of shaft of fibula GERD (gastroesophageal reflux disease) HLD (hyperlipidemia) on tricor Hyperlipidemia Hypertension Hypomagnesemia Hypopotassemia IBS (irritable bowel syndrome) Insomnia Intertrigo Knee pain Morbid obesity ([facility]) 03/11/2011 Myalgia Nausea Neck pain Neuropathy [...] AND curettage EGD TRANSORAL BIOPSY SINGLE/MULTIPLE 12/16/2007 ESOPHAGOGASTRODUODENOS COPY TRANSORAL DIAGNOSTIC age 14 EGD LAPAROSCOPIC APPENDECTOMY [...] ablation at the same time ALLERGIES Vicodin [Hydrocodone-Acetamino phen], Balsam 115, Balsam [place], Barium Sulfate, Benadryl Allergy Decongestant, Benadryl [Diphenhydramine Hcl], Codeine, Lisinopril, Mold, Nsaids (Non-Steroidal Anti-Inflammatory Drug), Penicillins, Seasonal Allergies, Tetracycline, Vanilla Extract, and Vanilla Extract Flavor MEDICATIONS CPAP/BIPAP/OTHER APAP 5-20 cmH2O DME [facility] Blood-Glucose Meter (ONETOUCH VERIO FLEX METER) [...] PATIENT Blood-Glucose Meter,Continuous (FREESTYLE FESTUS 3 READER) [facility] Dispense one reader kit. E11.9 DIALYSIS PATIENT dulaglutide (TRULICITY) 0.75 mg/0.5 mL pen injector Inject 0.75 mg subcutaneously one time a week. DX: E11.40 Type 2 DM pregabalin (LYRICA) 25 mg capsule Take 1 capsule by mouth daily at bedtime for 90 days. hydrOXYzine HCl (ATARAX) (more content not included)... Normal [facility] CNCOon 08-04-2024 CNCO Letter Text Normal [facility] CNPNon 08-04-2024 CNPN Telephone (AGSPINE3) LISAMargareth ARNOLD ([id number]) 1965 F [place] Date Time Provider Department 08/04/24 EFRA GALARZA AGSPINE3 During your visit today, we recorded the following information about you: James Mc 08/04/2024 2:05 PM Signed No Show Documentation Margareth Arnold Lisa no showed for an appointment on 08/04/24 [...] of Date: 08/04/2024 Noted Allergy Reaction VICODIN (HYDROCODONE-ACETAMINO PHE*09/23/2007 11 - Vomiting BALSAM 115 09/23/2007 BALSAM JUAN 09/10/2022 16 - Unknown BARIUM SULFATE 05/01/2023 16 - Unknown BENADRYL ALLERGY DECONGESTANT 05/01/2023 9 - Itching BENADRYL (DIPHENHYDRAMINE HCL) 09/23/2007 2 - Rash 9 - Itching CODEINE 09/23/2007 11 - Vomiting 14 - Other: See Comments LISINOPRIL 05/26/2008 15 - Contraindication-Medic al [facility]* Comments: Acute renal failure MOLD 09/23/2007 [...] 08/04/2024 - CPAP/BIPAP/OTHER APAP 5-20 cmH2O DME [facility] - Blood-Glucose Meter (ONETOUCH VERIO FLEX [...] - Blood-Glucose Meter,Continuous (FREESTYLE FESTUS 3 READER) [facility] Dispense one reader kit. E11.9 DIALYSIS PATIENT [...] 5,000 Units by mouth twice daily. - Oobbcgdo-Ws-Wfw-Fe-FA ( VITAMIN) ORAL Tab Take 1 tablet [...] Unspecified Iron (more content not included)... [facility] Telephone (FAMPWS) Margareth GONZALEZ ([id number]) 1965 F LV Date Time Provider Department 08/01/24 IG[facility] CHEATH[facility] During your visit today, we recorded the following information about you: Chloe Carpenter LPN 08/01/2024 3:27 PM Signed [facility] sends fax that Trulicity requires [...] of Date: 08/01/2024 Noted Allergy Reaction VICODIN (HYDROCODONE-ACETAMINO PHE*09/23/2007 11 - Vomiting BALSAM 115 09/23/2007 BALSAM JUAN 09/10/2022 16 - Unknown BARIUM SULFATE 05/01/2023 16 - Unknown BENADRYL ALLERGY DECONGESTANT 05/01/2023 9 - Itching BENADRYL (DIPHENHYDRAMINE HCL) 09/23/2007 2 - Rash 9 - Itching CODEINE 09/23/2007 11 - Vomiting 14 - Other: See Comments LISINOPRIL 05/26/2008 15 - Contraindication-Medic al [facility]* Comments: Acute renal failure MOLD 09/23/2007 [...] Fully Assessed Reason for Visit: Insurance Authorization [[id number]] Cmt: Trulicity Prescriptions as of 08/02/2024 - CPAP/BIPAP/OTHER APAP 5-20 cmH2O DME [facility] - Blood-Glucose Meter (ONETOUCH VERIO FLEX [...] - Blood-Glucose Meter,Continuous (FREESTYLE FESTUS 3 READER) [facility] Dispense one reader kit. E11.9 DIALYSIS PATIENT [...] 5,000 Units by mouth twice daily. - Qfpefztz-Kn-Lap-Fe-FA ( VITAMIN) ORAL Tab Take 1 tablet [...] 4 c (more content not included)... [facility] Telephone (SLEWST) Margareth GONZALEZ ([id number]) 1965 F LV Date Time Provider Department 07/29/24 ALONDRA CHUNG During your visit today, we recorded the following information about you: Arnold Bocanegra LPN 07/29/2024 2:25 PM Signed Patient calling asking that Alondra can see her CT Chest results that Tresa Marcum PRODUCT TECHNOLOGY SCIENTIST had her get done. Patient said she is not going to set up an appt with Pulmonary right now. She has dialysis and the nurses there check her lungs 3 times weekly, and she will have issues getting appt with all of her dialysis days. I had went over notes from Tresa Marcum again with her and told PRODUCT TECHNOLOGY SCIENTIST wants her to see Pulmonary, she still [...] She would like to change DME to [facility]. NEHAL Groves Rebecca, APRN.NOY 07/29/2024 4:33 PM Signed Order printed for PAP for [facility] Alondra Chung APRN.Nataly Sims LPN 08/01/2024 8:40 AM Signed Faxed CPAP new device order to [facility]. NEHAL Groves Krystle, DALE 08/01/2024 9:06 AM Addendum Eriberto with [facility] calls to let provider know that they are out of network for C-pap orders that were received. Call placed to patient and notified. She requests orders just be sent to [facility] as she knows they are in Network. Faxed per request to [facility] at [phone]. Diana Brand RN Allergies As of Date: 07/29/2024 Noted Allergy Reaction VICODIN (HYDROCODONE-ACETAMINO PHE*09/23/2007 11 - Vomiting BALSAM 115 09/23/2007 BALSAM JUAN 09/10/2022 16 - Unknown BARIUM SULFATE 05/01/2023 16 - Unknown BENADRYL ALLERGY DECONGESTANT 05/01/2023 9 - Itching BENADRYL (DIPHENHYDRAMINE HCL) 09/23/2007 2 - Rash 9 - Itching CODEINE 09/23/2007 11 - Vomiting 14 - Other: See Comments LISINOPRIL 05/26/2008 15 - Contraindication-Medic al [facility]* Comments: Acute renal failure MOLD 09/23/2007 NSAIDS (NON-STEROIDAL ANTI-INFLAM*09/13/2012 14 - Other: See Comments Comments: Unable to take nsaids after having gastric bypass. PENICILLINS 09/23/2007 10 - Anaphylaxis SEASONAL ALLERGIES 12/14/2008 14 - Other: See Comments Comments: Nose runs, sneezing... TETRACYCLINE 09/23/2007 2 - Rash VANILLA EXTRACT 09/23/2007 VANILLA EXTRACT FLAVOR 09/10/2022 16 - Unknown Date Reviewed: 07/11/2024 Reviewed by: Yohana Montero, OA - Fully Assessed Reason for Visit: Patient Question [1477] Primary Visit Diagnosis:CASSIE (obstructive sleep apnea) [G47.33] Other Visit Diagnosis:Essential hypertension [I10] Order(s):PAP THERAPY ORDER [[id number]] Order #: [id number]: 1 [facility]IP[facility] Prescriptions as of 08/01/2024 - CPAP/BIPAP/OTHER APAP 5-20 cmH2O [facility] - Blood-Glucose Meter (ONETOUCH VERIO [...] - Blood-Glucose Meter,Continuous (FREESTYLE FESTUS 3 READER) [facility] Dispense one reader kit. E11.9 DIALYSIS PATIENT [...] (TYLENOL) 500 (more content not included)... Normal [facility] 07-28-2024 [facility] Telephone (YSABEL) Margareth GONZALEZ ([id number]) 1965 F Date Time Provider Department 07/28/24 [...] Eugenia Palencia OCCA 08/03/2024 10:32 AM Signed [facility] requested duplex and notified of Dr Jackson's response via fax. Transmission complete to [phone]. Jenni Castro RN 08/09/2024 9:20 AM Addendum Saira Jackson, DO You; [facility]8 days ago Reviewed her duplex. Her graft has adequate flow for dialysis. If her pain has improved, no need for intervention. If she is having increased pain during dialysis or issues with clearance/flow, would recommend fistulogram Call dialysis to follow up for update, spoke with Simona who spoke with biotechnologist. They are reporting prolonged bleeding after tx [...] of Date: 07/28/2024 Noted Allergy Reaction VICODIN (HYDROCODONE-ACETAMINO PHE*09/23/2007 11 - Vomiting BALSAM 115 09/23/2007 BALSAM JUAN 09/10/2022 16 - Unknown BARIUM SULFATE 05/01/2023 16 - Unknown BENADRYL ALLERGY DECONGESTANT 05/01/2023 9 - Itching BENADRYL (DIPHENHYDRAMINE HCL) 09/23/2007 2 - Rash 9 - Itching CODEINE 09/23/2007 11 - Vomiting 14 - Other: See Comments LISINOPRIL 05/26/2008 15 - Contraindication-Medic al [facility]* Comments: Acute renal failure MOLD 09/23/2007 [...] for nausea/vomiting. - CPAP/BIPAP/OTHER APAP 5-20 cmH2O [facility] - Blood-Glucose Meter (ONETOUCH VERIO [...] 5,000 Units by mouth twice daily. - Gwxmovgm-He-Tfq-Fe-FA ( VITAMIN) ORAL Tab Take 1 tablet by mouth once da (more content not included)... Normal [facility] CT CHEST WO IVCONon 07-28-19 CT CHEST WO IVCON * * *Final Report* * * DATE OF EXAM: Jul 27 2024 2:44PM [facility] 0541 - CT CHEST WO IVCON / [...] be communicated with the ordering provider via [employer] staff message or phone message by [employer] within 2 business days of report finalization. --END OF FINDING-- Seafood Clerk: SHAMAR Transcribe Date/Time: Jul 28 2024 6:57A Dictated by : MICHAEL CANO MD This examination was interpreted and the report reviewed and electronically signed by: MICHAEL CANO MD on Jul 28 2024 7:06AM EST [id number] ACTIONABLE Invalid Interpretation Code [facility] A/V FISTULA GRAFT UNL VAS LABon 07-27-2024 US A/V FISTULA GRAFT UNL VAS LAB Non-Invasive Vascular Laboratory [facility] Upper Extremity Arterial Duplex Unilateral - Left [...] physician: Marco Benítez MD, RPVI Final CC [employer] [facility] : [id number] See Link below for Image Normal [facility] CNOVon 07-06-2024 CNOV Office Visit (ENWSTR ) Margareth GONZALEZ ([id number]) 1965 F LV Date Time Provider Department 07/06/24 2:00 PM TRINIDAD FRAZIER ENWSTR During your visit today, we recorded the following information about you: Temperature Pulse Respiration Blood pressure 98.3 degrees 95/minute 14/minute 160/84 Weight 83.5 kg Trinidad Frazier, PLISSE MACHINE OPERATOR HELPER.SALOONKEEPER 07/06/2024 1:59 PM Signed OFFICE VISIT PROGRESS NOTE CC Margareth Hansenham is a 59 year old who presents [...] < > (more content not included)... Normal [facility] Kesha 07-06-2024 NOYN Telephone (PALMER) Margareth GONZALEZ ([id number]) 1965 F LV Date Time Provider Department 07/06/24 TRINIDAD FRAZIER During your visit today, we recorded the following information about you: Audra Sparks MA 07/06/2024 2:57 PM Signed Cover My Meds prior auth soriano [id number] required. ALANA Mir Lakieta D 07/08/2024 2:58 PM Signed BREANNA Whitfield has been archived. Please confirm what medication needs a pa to process. Delfin Echevarria Prior Cloth Covered [facility] [place] Audra Sparks MA 07/08/2024 3:05 PM Signed Info off cover my meds. Sorry. ALANA Mir Lakieta D 07/20/2024 3:37 PM Signed Delfin Echevarria Prior Cloth Covered [facility] [place] Allergies As of Date: 07/06/2024 Noted Allergy Reaction VICODIN (HYDROCODONE-ACETAMINO PHE*09/23/2007 11 - Vomiting BALSAM 115 09/23/2007 BALSAM JUAN 09/10/2022 16 - Unknown BARIUM SULFATE 05/01/2023 16 - Unknown BENADRYL ALLERGY DECONGESTANT 05/01/2023 9 - Itching BENADRYL (DIPHENHYDRAMINE HCL) 09/23/2007 2 - Rash 9 - Itching CODEINE 09/23/2007 11 - Vomiting 14 - Other: See Comments LISINOPRIL 05/26/2008 15 - Contraindication-Medic al [facility]* Comments: Acute renal failure MOLD 09/23/2007 [...] MA - Fully Assessed 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 E11.9 DIALYSIS PATIENT [...] 5,000 Units by mouth twice daily. - Kpewsaar-Ou-Znr-Fe-FA ( VITAMIN) ORAL Tab Take 1 tablet [...] [R60.9] 08/31 (more content not included)... [facility] (TRACY) Margareth GONZALEZ ([id number]) 1965 F Date Time Provider Department 07/05/24 ALONDRA CHUNG During your visit today, we recorded the following information about you: Alondra Chung APRN.NOY 07/05/2024 9:33 AM Signed Please send her PAP order to [facility]. Please let pt know you checked and [employer] takes her insurance. Alondra Chung APRN.Nataly Sims LPN 07/05/2024 10:14 AM Signed Yes. [employer] dose take Pt insurance. Order has been faxed. NEHAL Groves Barbara, LPN 07/05/2024 1:27 PM Signed Pt dose not have message machine. My chart message sent. Nataly Burns LPN Allergies As of Date: 07/05/2024 Noted Allergy Reaction VICODIN (HYDROCODONE-ACETAMINO PHE*09/23/2007 11 - Vomiting BALSAM 115 09/23/2007 BALSAM JUAN 09/10/2022 16 - Unknown BARIUM SULFATE 05/01/2023 16 - Unknown BENADRYL ALLERGY DECONGESTANT 05/01/2023 9 - Itching BENADRYL (DIPHENHYDRAMINE HCL) 09/23/2007 2 - Rash 9 - Itching CODEINE 09/23/2007 11 - Vomiting 14 - Other: See Comments LISINOPRIL 05/26/2008 15 - Contraindication-Medic al [facility]* Comments: Acute renal failure MOLD 09/23/2007 NSAIDS (NON-STEROIDAL ANTI-INFLAM*09/13/2012 14 - Other: See Comments Comments: Unable to take nsaids after having gastric bypass. PENICILLINS 09/23/2007 10 - Anaphylaxis SEASONAL ALLERGIES 12/14/2008 14 - Other: See Comments Comments: Nose runs, sneezing... TETRACYCLINE 09/23/2007 2 - Rash VANILLA EXTRACT 09/23/2007 VANILLA EXTRACT FLAVOR 09/10/2022 16 - Unknown Date Reviewed: 07/04/2024 Reviewed by: Alondra Chung APRN.NOY - Fully Assessed Prescriptions as of 07/05/2024 [...] 1 tablet by mouth once daily. - Sfilhhor-Vl-Xak-Fe-FA ( VITAMIN) ORAL Tab Take 1 tablet [...] 02/21/2019 Fibromy (more content not included)... Normal [facility] CNOVon 07-04-2024 CNOV Office Visit (SLEWST ) Margareth GONZALEZ ([id number]) 1965 F Date Time Provider Department 07/04/24 2:30 PM ALONDRA CHUNG During your visit today, we recorded the following information about you: Pulse Respiration Blood pressure Weight 107/minute 16/minute 187/94 83.4 kg Height 1.727 m Alondra Chung APRN.SALOONKEEPER 07/04/2024 5:14 PM Signed [facility] New Patient Evaluation PATIENT NAME: Margareth Gonzalez DATE OF SERVICE: July 03, 2024 Recording using ambient [employer] software for draft documentation of the visit was discussed with the patient/authorized education courses sales representative; all questions welcomed and answered. Patient/authorized education courses sales representative agreed to proceed CONSULTING PROVIDER: hSa Myrick [address] [facility] [address] REASON FOR CONSULT: Sha Myrick sends the [...] dialysis for 2 years, attends sessions at [facility]. - Receives iron and Mircera typically [...] Home Sleep (more content not included)... Normal [facility] Inital Evaluation (1) - PTon 06-09-2024 Inital Evaluation (1) - PT [facility] CNOVon 06-01-2024 CNOV Office Visit (FAMPWS ) Margareth GONZALEZ ARNOLD ([id number]) 1965 F LV Date Time Provider Department 06/01/24 1:40 PM [facility] During your visit today, we recorded the following information about you: Pulse Respiration Blood pressure Weight 95/minute 16/minute 184/92 84.6 kg Tresa Marcum APRN.NOY 06/01/2024 2:22 PM Signed - Discontinue Glipizide for now; monitor blood sugar levels. - Start Trulicity at a lower dose for 4 doses, then switch to 1.5 mg as prescribed; medication sent to [facility] pharmacy. - Complete lab work (CBC, CMP, Magnesium, A1c, Cholesterol Panel) at dialysis center. - Schedule appointments with Endocrinology and Sleep Medicine. - Schedule hydrotherapy at [facility]; order will be faxed to [facility] - Schedule follow-up appointments with Pain Management and Neurology. - schedule repeat chest CT. - Next follow-up appointment in [address] Cheatham. Tresa Marcum APRN.SALOONKEEPER 06/01/2024 4:55 PM Signed This is a [...] dialysis three times a week. - Sees asbestos cloth inspector every other month and CMP monthly. - [...] Chronic kidney disease Contraceptive management Depression Diabetes ([facility]) Diarrhea DVT, lower extremity ([facility]) 08/2014 Right leg (6) Esophagitis ESRD (end stage renal disease) ([facility]) 07/03/2022 Facial fracture due to fall ([facility]) ([facility]) Fatigue Fibromyalgia Fracture Fracture of shaft of fibula GERD (gastroesophageal reflux disease) HLD (hyperlipidemia) on tricor Hyperlipidemia Hypertension Hypomagnesemia Hypopotassemia IBS (irritable bowel syndrome) Insomnia Intertrigo Knee pain Morbid obesity ([facility]) 03/11/2011 Myalgia Nausea Neck pain Neuropathy [...] AND curettage EGD TRANSORAL BIOPSY SINGLE/MULTIPLE 12/16/2007 ESOPHAGOGASTRODUODENOS COPY TRANSORAL DIAGNOSTIC age 14 EGD LAPAROSCOPIC APPENDECTOMY [...] ablation at the same time ALLERGIES Vicodin [Hydrocodone-Acetamino phen], Balsam (more content not included)... Normal [facility] Margareth GONZALEZ ([id number]) 1965 F Date Time Provider Department 05/10/24 IGNACIO CHEATHAM [facility] During your visit today, we recorded the following information about you: Fabiola Jesus RN 05/10/2024 11:33 AM Signed Patient calling and is asking if provider can write orders for a home health aide. Patient states if provider can write this order she would like to have it faxed to [facility] at [phone]. DALE Wilson William J, MD 05/10/2024 11:48 AM Signed Chloe Villagomez LPN 05/11/2024 5:20 PM Addendum Faxing as requested. Attempted to contact patient but voicemail is not set up. Allergies As of Date: 05/10/2024 Noted Allergy Reaction VICODIN (HYDROCODONE-ACETAMINO PHE*09/23/2007 11 - Vomiting BALSAM 115 09/23/2007 BALSAM JUAN 09/10/2022 16 - Unknown BARIUM SULFATE 05/01/2023 16 - Unknown BENADRYL ALLERGY DECONGESTANT 05/01/2023 9 - Itching BENADRYL (DIPHENHYDRAMINE HCL) 09/23/2007 2 - Rash 9 - Itching CODEINE 09/23/2007 11 - Vomiting 14 - Other: See Comments LISINOPRIL 05/26/2008 15 - Contraindication-Medic al [facility]* Comments: Acute renal failure MOLD 09/23/2007 NSAIDS (NON-STEROIDAL ANTI-INFLAM*09/13/2012 14 - Other: See Comments Comments: Unable to take nsaids after having gastric bypass. PENICILLINS 09/23/2007 10 - Anaphylaxis SEASONAL ALLERGIES 12/14/2008 14 - Other: See Comments Comments: Nose runs, sneezing... TETRACYCLINE 09/23/2007 2 - Rash VANILLA EXTRACT 09/23/2007 VANILLA EXTRACT FLAVOR 09/10/2022 16 - Unknown Date Reviewed: 04/15/2024 Reviewed by: Sha Ray APRN.SALOONKEEPER - Fully Assessed Reason for Visit: Orders [681] Primary Visit Diagnosis:ESRD (end stage renal disease) ([facility]) [N18.6] Other Visit Diagnoses:Proliferativ e diabetic retinopathy associated with type 2 diabetes mellitus, unspecified laterality, unspecified proliferative retinopathy type ([facility]) [E11.3599] TIA (transient ischemic attack) [G45.9] Order(s):[facility] [[id number]] Order #: [id number]: 1 Prescriptions as of 05/11/2024 - hydrOXYzine [...] As needed. - flash glucose scanning reader ([employer] Tech[employer]YLE FESTUS 2 READER) Use to check glucose [...] 1 tablet by mouth once daily. - Ezoncuxl-Ny-Jsv-Fe-FA ( VITAMIN) ORAL Tab Take 1 tablet [...] 4 chronic (more content not included)... Normal [facility] CNOVon 04-15-2024 CNOV Office Visit (UCWSTR ) Margareth GONZALEZ ([id number]) 1965 F LV Date Time Provider Department 04/15/24 12:15 PM SHA RAY [facility] During your visit today, we recorded the following information about you: Temperature Pulse Respiration Blood pressure 98 degrees 96/minute 20/minute 173/80 Weight 87 kg Sha Ray, PLISSE MACHINE OPERATOR HELPER.SALOONKEEPER 04/15/2024 12:57 PM Signed Subjective HPI Nontoxic-appearing [...] Chronic kidney disease Contraceptive management Depression Diabetes ([facility]) Diarrhea DVT, lower extremity ([facility]) 08/2014 Right leg (6) Esophagitis ESRD (end stage renal disease) ([facility]) 07/03/2022 Facial fracture due to fall ([facility]) ([facility]) Fatigue Fibromyalgia Fracture Fracture of shaft [...] AND curettage EGD TRANSORAL BIOPSY SINGLE/MULTIPLE 12/16/2007 ESOPHAGOGASTRODUODENOS COPY TRANSORAL DIAGNOSTIC age 14 EGD LAPAROSCOPIC APPENDECTOMY [...] ablation at the same time ALLERGIES Vicodin [Hydrocodone-Acetamino phen], Balsam 115, Balsam [place], Barium Sulfate, Benadryl Allergy Decongestant, Benadryl [Diphenhydramine [...] daily. TRULICITY (more content not included)... Normal [facility] 04-06-2024 [facility] Telephone (NATALIE) Margareth GONZALEZ ([id number]) 1965 F Date Time Provider Department 04/06/24 ANAT LOPEZ During your visit today, we recorded the following information about you: Anat Lopez APRN.[facility] 06/06/2024 7:13 AM Addendum Actionable Finding Follow up Patient Name: Margareth Gonzalez eMRN: [id number] : 1965 Patient Preferred PCP: [facility] - 6 month follow [...] nodules Ordering provider: Dr. Ignacio Cheatham MD [phone] Outreach attempts for Actionable Finding: MYC user active [x] SHEILA outreach MyChart sent 04/06/2024 Outcome: Added to ISN April 2024 last Per our protocol, this Actionable Finding is Closed based on the Final Criterion : Patient completed imaging that qualifies closure of the actionable finding Scheduled-07/27/2024 Anat Lopez APRN.[facility] Actionable Findings [facility] Office: [phone] Allergies As of Date: 04/06/2024 Noted Allergy Reaction VICODIN (HYDROCODONE-ACETAMINO PHE*09/23/2007 11 - Vomiting BALSAM 115 09/23/2007 BALSAM JUAN 09/10/2022 16 - Unknown BARIUM SULFATE 05/01/2023 16 - Unknown BENADRYL ALLERGY DECONGESTANT 05/01/2023 9 - Itching BENADRYL (DIPHENHYDRAMINE HCL) 09/23/2007 2 - Rash 9 - Itching CODEINE 09/23/2007 11 - Vomiting 14 - Other: See Comments LISINOPRIL 05/26/2008 15 - Contraindication-Medic al [facility]* Comments: Acute renal failure MOLD 09/23/2007 [...] for nausea/vomiting. - CPAP/BIPAP/OTHER APAP 5-20 cmH2O [facility] - Blood-Glucose Meter (ONETOUCH VERIO [...] - Blood-Glucose Meter,Continuous (FREESTYLE FESTUS 3 READER) [facility] Dispense one reader kit. E11.9 DIALYSIS PATIENT [...] 5,000 Units by mouth twice daily. - Agvtptao-Fe-Yra-Fe-FA ( VITAMIN) ORAL Tab Take 1 tablet by mouth once daily. Meds Comments as of 11/28/2017: Pt states all meds were just gone over. Did not go over meds. Swathi Haddad Ma November 28, 2017 Problem List As Of Date (more content not included)... Normal [facility] 12 Lead EKGon 04-02-2024 12 Lead EKG Normal [facility] Brain/Head without Contrasto n 04-02-2024 Brain/Head without Contrast Normal [facility] CBC W/Diff, Automatedon 02- Absolute Lymph 1.16 X10 3/uL Normal 0.83-4.51 [facility] Comment on above: Performed By: #### L 500.4050, L100.0100 ####[facility] [address] [place], [address] Absolute Neut 2.8 X10 3/uL Normal 2.0-7.7 [facility] Comment on above: Performed By: #### L 500.4050, L100.0100 ####[facility] [address] [place], [address] Basophils/100 WBC (Bld) 0.9 % Normal 0-1 [facility] Comment on above: Performed By: #### L 500.4050, L100.0100 ####[facility] [address] [place], [address] Eosinophils/100 WBC (Bld) 1.8 % Normal 0-5 [facility] Comment on above: Performed By: #### L 500.4050, L100.0100 ####[facility] [address] [place], [address] Erythrocyte distribution width (RBC) [Ratio] 12.5 % Normal 11.6-14.6 [facility] Comment on above: Performed By: #### L 500.4050, L100.0100 ####[facility] [address] [place], [address] Hematocrit (Bld) [Volume fraction] 34.3 % Low 37-47 [facility] Comment on above: Performed By: #### L 500.4050, L100.0100 ####[facility] [address] [place], [address] Hemoglobin (Bld) [Mass/Vol] 11.4 g/dL Low 12.0-15.0 [facility] Comment on above: Performed By: #### L 500.4050, L100.0100 ####[facility] [address] [place], [address] IG% 0.200 Normal 0.0-0.9 [facility] Comment on above: Result Comment: IG% - Immature Granulocytes (promyelocytes, myelocytes andmetamyelocytes) > 1% indicates that a LEFT SHIFT is Present. Performed By: #### L 500.4050, L100.0100 ####[facility] [address] [place], [address] Lymphocytes/100 WBC (Bld) 26.5 % Normal 19-41 [facility] Comment on above: Performed By: #### L 500.4050, L100.0100 ####[facility] [address] [place], [address] MCH (RBC) [Entitic mass] 31.1 pg Normal 27.0-32.0 [facility] Comment on above: Performed By: #### L 500.4050, L100.0100 ####[facility] [address] [place], [address] MCHC (RBC) [Mass/Vol] 33.2 g/dL Normal 32-36 [facility] Comment on above: Performed By: #### L 500.4050, L100.0100 ####[facility] [address] [place], [address] MCV (RBC) [Entitic vol] 93.5 fL Normal 81-99 [facility] Comment on above: Performed By: #### L 500.4050, L100.0100 ####[facility] [address] [place], [address] Monocytes/100 WBC (Bld) 6.8 % Normal 0-10 [facility] Comment on above: Performed By: #### L 500.4050, L100.0100 ####[facility] [address] [place], [address] Neutrophils/100 WBC (Bld) 63.8 % Normal 47-70 [facility] Comment on above: Performed By: #### L 500.4050, L100.0100 ####[facility] [address] [place], [address] Nucleated RBC (Bld) [#/Vol] 0 10*3/uL Normal 0-5 [facility] Comment on above: Performed By: #### L 500.4050, L100.0100 ####[facility] [address] [place], [address] Platelet mean volume (Bld) [Entitic vol] 9.7 fL Normal 6.2-12.0 [facility] Comment on above: Performed By: #### L 500.4050, L100.0100 ####[facility] [address] [place], [address] Platelets (Bld) [#/Vol] 182 10*3/uL Normal 150-450 [facility] Comment on above: Performed By: #### L 500.4050, L100.0100 ####[facility] [address] [place], [address] RBC (Bld) [#/Vol] 3.67 10*6/uL Low 4.2-5.[address] [facility] Comment on above: Performed By: #### L 500.4050, L100.0100 ####[facility] [address] [place], [address] RDW SD 42.8 fl Normal 35.1-43.9 [facility] Comment on above: Performed By: #### L 500.4050, L100.0100 ####[facility] [address] [place], [address] WBC (Bld) [#/Vol] 4.4 10*3/uL Normal 4.4-11.0 [facility] Comment on above: Performed By: #### L 500.4050, L100.0100 ####[facility] [address] [place], [address] CTA Head AND Neck W/ Contras ton 04-02-2024 CTA Head AND Neck W/ Contrast Normal [facility] Chest 1 View (Portable)on Chest 1 View (Portable) Normal [facility] Comprehensive Metabolic Prof ilon 04-02-2024 Albumin [Mass/Vol] 3.2 g/dL Normal 3.2-5.0 [facility] Comment on above: Performed By: #### L 500.4050, L100.0100 ####[facility] [address] [place], [address] Albumin/Globulin [Mass ratio] 0.9 {ratio} Normal 0.9-2.4 [facility] Comment on above: Performed By: #### L 500.4050, L100.0100 ####[facility] [address] [place], [address] ALK P 94 U/L Normal 45-117 [facility] Comment on above: Performed By: #### L 500.4050, L100.0100 ####[facility] [address] [place], [address] ALT [Catalytic activity/Vol] 19 U/L Normal 13-56 [facility] Comment on above: Performed By: #### L 500.4050, L100.0100 ####[facility] [address] [place], [address] AST [Catalytic activity/Vol] 22 U/L Normal 15-37 [facility] Comment on above: Performed By: #### L 500.4050, L100.0100 ####[facility] [address] [place], [address] Bilirubin [Mass/Vol] 0.50 mg/dL Normal 0.20-1.00 [facility] Comment on above: Result Comment: For patients on eltrombopag therapy, use of Dimension [place] TBIL is not recommended. Performed By: #### L 500.4050, L100.0100 ####[facility] [address] [place], [address] BUN/CRE 3.9 RATIO Low 10-20 [facility] Comment on above: Performed By: #### L 500.4050, L100.0100 ####[facility] [address] [place], [address] CA,Total 8.5 mg/dL Normal 8.5-10.1 [facility] Comment on above: Performed By: #### L 500.4050, L100.0100 ####[facility] [address] [place], [address] Chloride [Moles/Vol] 96 mmol/L Low 98-107 [facility] Comment on above: Performed By: #### L 500.4050, L100.0100 ####[facility] [address] [place], [address] CO2 [Moles/Vol] 29.0 mmol/L Normal 21.0-32.0 [facility] Comment on above: Performed By: #### L 500.4050, L100.0100 ####[facility] [address] [place], [address] Creatinine [Mass/Vol] 2.57 mg/dL High 0.55-1.02 [facility] Comment on above: Result Comment: The validity of the calculated GFR GFRAA in patients over70 years has not been determined. Clinical correlation isessential. Performed By: #### L 500.4050, L100.0100 ####[facility] [address] [place], [address] ECRCL 28.12 ml/min Normal [facility] Comment on above: Performed By: #### L 500.4050, L100.0100 ####[facility] [address] [place], [address] EST GFR - AA 25 mL/min Low >60 [facility] Comment on above: Result Comment: Afri can Somali GFR Calc Performed By: #### L 500.4050, L100.0100 ####[facility] [address] [place], [address] GAP 10 Normal 5-15 [facility] Comment on above: Performed By: #### L 500.4050, L100.0100 ####[facility] [address] [place], [address] GFR/1.73 sq M.predicted among non-blacks MDRD (S/P/Bld) [Vol rate/Area] 20 mL/min/{1.73_m2} Low >60 [facility] Comment on above: Result Comment: Non- GFR Calc Performed By: #### L 500.4050, L100.0100 ####[facility] [address] [place], [address] Globulin (S) [Mass/Vol] 3.7 g/dL Normal 2.2-4.2 [facility] Comment on above: Performed By: #### L 500.4050, L100.0100 ####[facility] [address] [place], [address] Glucose [Mass/Vol] 248 mg/dL High 74-106 [facility] Comment on above: Result Comment: Gluc ose result greater than or equal to 200 mg/dLsuggests DIABETES MELLITUS per A.D.A. criteria. Performed By: #### L 500.4050, L100.0100 ####[facility] [address] [place], [address] Potassium [Moles/Vol] 3.3 mmol/L Low 3.5-5.1 [facility] Comment on above: Performed By: #### L 500.4050, L100.0100 ####[facility] [address] [place], [address] Sodium [Moles/Vol] 134 mmol/L Low 136-145 [facility] Comment on above: Performed By: #### L 500.4050, L100.0100 ####[facility] [address] [place], [address] T PROT 6.9 g/dL Normal 6.4-8.2 [facility] Comment on above: Performed By: #### L 500.4050, L100.0100 ####[facility] [address] [place], [address] Urea nitrogen [Mass/Vol] 10 mg/dL Normal 7-18 [facility] Comment on above: Performed By: #### L 500.4050, L100.0100 ####[facility] [address] [place], [address] Emergency Department Summary on 04-02-2024 Emergency Department Summary Normal [facility] M100.678on 04-02-2024 M100.678 Pending SARS-CoV-2 (COVID 19) Negative INFLUENZA A Negative INFLUENZA B Negative RSV PCR Negative Normal [facility] Comment on above: Performed By: #### M 100.678 ####[facility] [address] [place], [address] [facility] Telephone (FAMPWS) Margareth GONZALEZ ([id number]) 1965 F LV Date Time Provider Department 03/30/24 IGNACIO CHEATHAM [facility] During your visit today, we recorded the following information about you: Fabiola Jesus RN 03/30/2024 11:04 AM Signed Patient calls and states that she had talked to Dr. Hill regarding medication. Patient states that Dr. Hill told her that Cymbalta 30 mg would be ok for her to take with her kidney issues. DALE Wilson William J, MD 03/30/2024 11:18 AM Signed It was previously sent in. Does she need new script? Kiki Colni MA 03/30/2024 1:23 PM Signed Left message for patient to contact office. ALANA Baca Lisa, MA 04/08/2024 10:20 AM Signed Phone number has calling restrictions that prevents the completion of call.Closing encounter Efra Box MA April 08, 2024 10:20 AM Allergies As of Date: 03/30/2024 Noted Allergy Reaction VICODIN (HYDROCODONE-ACETAMINO PHE*09/23/2007 11 - Vomiting BALSAM 115 09/23/2007 BALSAM JUAN 09/10/2022 16 - Unknown BARIUM SULFATE 05/01/2023 16 - Unknown BENADRYL ALLERGY DECONGESTANT 05/01/2023 9 - Itching BENADRYL (DIPHENHYDRAMINE HCL) 09/23/2007 2 - Rash 9 - Itching CODEINE 09/23/2007 11 - Vomiting 14 - Other: See Comments LISINOPRIL 05/26/2008 15 - Contraindication-Medic al [facility]* Comments: Acute renal failure MOLD 09/23/2007 [...] As needed. - flash glucose scanning reader ([employer] FESTUS 2 READER) Use to check glucose [...] 1 tablet by mouth once daily. - Dsruvynu-Xd-Jgo-Fe-FA ( VITAMIN) ORAL Tab Take 1 tablet [...] Unspecified Ir (more content not included)... Normal [facility] CNOVon 03-25-2024 CNOV Office Visit (FAMPWS ) Margareth GONZALEZ ([id number]) 1965 F LV Date Time Provider Department 03/25/24 11:00 AM [...] to ER. Admitted for observation. Which facility: [facility] Date of visit: 03/17/24-03/18/24 Diagnosis: numbness [...] neurology. She would prefer to see a [facility] neurologist. Is on a statin [...] mouth. As needed. flash glucose scanning reader (Awareness CardYLE FESTUS 2 READER) Use to check glucose 3 times daily and continuously. 1 per year. flash glucose sensor (Gripp[employer]n TechSTYLE FESTUS 2 SENSOR) kit Use to check glucose 3 times daily and continuously. Change every 14 days. 6 per 90 day supply. cholecalciferol (VITAMIN D3) 5,000 unit tab Take 5,000 Units by mouth twice daily. aspirin, enteric coated (ADULT LOW DOSE ASPIRIN) 81 mg EC tablet Take 1 tablet by mouth once daily. (Patient taking differently: Take 81 mg by mouth every morning.) Ovtbyksy-Om-Ytl-Fe-FA ( VITAMIN) ORAL Tab Take 1 tablet by mouth once daily. No current facility-administered medications for this visit. ALLERGIES: ALLERGIES Allergen Reactions Vicodin [Hydrocodon* Vomiting Balsam 115 Balsam [place] Unknown Barium Sulfate Unknown Benadryl Allergy De* Itching Benadryl [Diphenhyd* Rash, Itching Codeine Vomiting, Other: See Comments Lisinopril Contraindication-Medic al Surgical Acute renal failure Mold Nsaids (Non-Steroid* [...] (6) Esophagitis ESRD (end stage renal disease) ([facility]) 07/03/2022 Facial fracture due to fall ([facility]) ([facility]) Fatigue Fibromyalgia Fracture Fracture of shaft of fibula GERD (gastroesophageal reflux disease) HLD (hyperlipidemia) on tricor Hyperlipidemia Hypertension Hypomagnesemia Hypopotassemia IBS (irritable bowel syndrome) Insomnia Intertrigo Knee pain Morbid obesity ([facility]) 03/11/2011 Myalgia Nausea Neck pain Neuropathy Nocturnal leg cramps Non-cardiac chest pain Obesity CASSIE (obstructive sleep apnea) 07/08/2011 Other polyp of si (more content not included)... Normal [facility] CNPNon 03-23-2024 CNPN Telephone (JOSYWS) Margareth GONZALEZ ([id number]) 1965 F Date Time Provider Department 03/23[facility] During your visit today, we recorded the following information about you: Georgina Salmon RN 03/23/2024 1:55 PM Signed Elenita with [facility] calling and states she will be faxing over forms regarding a Medicaid Program for patient. Please add ICD codes to form, and then fax form back to number provided. For any questions, Call Elenita at [phone] DALE Lemus Brittany L, MA 03/28/2024 2:46 PM Signed 03/28-Attempted to contact Elenita at [facility]. Recording states out of office until 04/04. Left detailed message on identified VM advising to refax form to provider office. June Heath MA Allergies As of Date: 03/23/2024 Noted Allergy Reaction VICODIN (HYDROCODONE-ACETAMINO PHE*09/23/2007 11 - Vomiting BALSAM 115 09/23/2007 BALSAM JUAN 09/10/2022 16 - Unknown BARIUM SULFATE 05/01/2023 16 - Unknown BENADRYL ALLERGY DECONGESTANT 05/01/2023 9 - Itching BENADRYL (DIPHENHYDRAMINE HCL) 09/23/2007 2 - Rash 9 - Itching CODEINE 09/23/2007 11 - Vomiting 14 - Other: See Comments LISINOPRIL 05/26/2008 15 - Contraindication-Medic al [facility]* Comments: Acute renal failure MOLD 09/23/2007 [...] As needed. - flash glucose scanning reader ([employer] FESTUS 2 READER) Use to check glucose [...] 1 tablet by mouth once daily. - Gzilgtbf-Wm-Oqw-Fe-FA ( VITAMIN) ORAL Tab Take 1 tablet [...] and midf (more content not included)... Normal [facility] Glucoseon 03-19-2024 FINGERSTICK GLU 282 mg/dL High 74-106 [facility] Comment on above: Result Comment: SONJA VARGAS OF PATIENT CARE PER NURSING PROTOCOL Performed By: #### L 501.080 ####[facility] [address] [place], [address] Basic Metabolic Profile (BMP )on 03-18-2024 BUN/CRE 5.4 RATIO Low 10-20 [facility] Comment on above: Order Comment: Comme nts: NPO at [place] prior to lipid panel Performed By: #### L 500.2500, L100.0100, L500.4100 ####[facility] [address] [place], [address] CA,Total 9.2 mg/dL Normal 8.5-10.1 [facility] Comment on above: Order Comment: Comme nts: NPO at [place] prior to lipid panel Performed By: #### L 500.2500, L100.0100, L500.4100 ####[facility] [address] [place], [address] Chloride [Moles/Vol] 95 mmol/L Low 98-107 [facility] Comment on above: Order Comment: Comme nts: NPO at [place] prior to lipid panel Performed By: #### L 500.2500, L100.0100, L500.4100 ####[facility] [address] [place], [address] CO2 [Moles/Vol] 28.0 mmol/L Normal 21.0-32.0 [facility] Comment on above: Order Comment: Comme nts: NPO at [place] prior to lipid panel Performed By: #### L 500.2500, L100.0100, L500.4100 ####[facility] [address] [place], [address] Creatinine [Mass/Vol] 3.89 mg/dL High 0.55-1.02 [facility] Comment on above: Order Comment: Comme nts: NPO at MN prior to lipid panel Result Comment: The validity of the calculated GFR GFRAA in patients over70 years has not been determined. Clinical correlation isessential. Performed By: #### L 500.2500, L100.0100, L500.4100 ####[facility] [address] [place], [address] ECRCL 18.12 ml/min Normal [facility] Comment on above: Order Comment: Comme nts: NPO at MN prior to lipid panel Performed By: #### L 500.2500, L100.0100, L500.4100 ####[facility] [address] [place], [address] EST GFR - AA 15 mL/min Low >60 [facility] Comment on above: Order Comment: Comme nts: NPO at MN prior to lipid panel Result Comment: Afri can Somali GFR Calc Performed By: #### L 500.2500, L100.0100, L500.4100 ####[facility] [address] [place], [address] GAP 10 Normal 5-15 [facility] Comment on above: Order Comment: Comme nts: NPO at MN prior to lipid panel Performed By: #### L 500.2500, L100.0100, L500.4100 ####[facility] [address] [place], [address] GFR/1.73 sq M.predicted among non-blacks MDRD (S/P/Bld) [Vol rate/Area] 13 mL/min/{1.73_m2} Low >60 [facility] Comment on above: Order Comment: Comme nts: NPO at MN prior to lipid panel Result Comment: Non- GFR Calc Performed By: #### L 500.2500, L100.0100, L500.4100 ####[facility] [address] [place], [address] Glucose [Mass/Vol] 288 mg/dL High 74-106 [facility] Comment on above: Order Comment: Comme nts: NPO at MN prior to lipid panel Result Comment: Gluc ose result greater than or equal to 200 mg/dLsuggests DIABETES MELLITUS per A.D.A. criteria. Performed By: #### L 500.2500, L100.0100, L500.4100 ####[facility] [address] [place], [address] Potassium [Moles/Vol] 4.3 mmol/L Normal 3.5-5.1 [facility] Comment on above: Order Comment: Comme nts: NPO at MN prior to lipid panel Performed By: #### L 500.2500, L100.0100, L500.4100 ####[facility] [address] [place], [address] Sodium [Moles/Vol] 133 mmol/L Low 136-145 [facility] Comment on above: Order Comment: Comme nts: NPO at MN prior to lipid panel Performed By: #### L 500.2500, L100.0100, L500.4100 ####[facility] [address] [place], [address] Urea nitrogen [Mass/Vol] 21 mg/dL High 7-18 [facility] Comment on above: Order Comment: Comme nts: NPO at MN prior to lipid panel Performed By: #### L 500.2500, L100.0100, L500.4100 ####[facility] [address] [place], [address] Bedside Glucoseon 03-18-2024 FINGERSTICK GLU 138 mg/dL High 74-106 [facility] Comment on above: Result Comment: SONJA VARGAS OF PATIENT CARE PER NURSING PROTOCOL Performed By: #### L 501.080 ####[facility] [address] [place], [address] CBC W/Diff, Automatedon 03-02 Absolute Lymph 1.51 X10 3/uL Normal 0.83-4.51 [facility] Comment on above: Performed By: #### L 500.2500, L100.0100, L500.4100 ####[facility] [address] [place], [address] Absolute Neut 3.0 X10 3/uL Normal 2.0-7.7 [facility] Comment on above: Performed By: #### L 500.2500, L100.0100, L500.4100 ####[facility] [address] [place], [address] Basophils/100 WBC (Bld) 1.0 % Normal 0-1 [facility] Comment on above: Performed By: #### L 500.2500, L100.0100, L500.4100 ####[facility] [address] [place], [address] Eosinophils/100 WBC (Bld) 2.3 % Normal 0-5 [facility] Comment on above: Performed By: #### L 500.2500, L100.0100, L500.4100 ####[facility] [address] [place], [address] Erythrocyte distribution width (RBC) [Ratio] 12.4 % Normal 11.6-14.6 [facility] Comment on above: Performed By: #### L 500.2500, L100.0100, L500.4100 ####[facility] [address] [place], [address] Hematocrit (Bld) [Volume fraction] 33.2 % Low 37-47 [facility] Comment on above: Performed By: #### L 500.2500, L100.0100, L500.4100 ####[facility] [address] [place], [address] Hemoglobin (Bld) [Mass/Vol] 10.8 g/dL Low 12.0-15.0 [facility] Comment on above: Performed By: #### L 500.2500, L100.0100, L500.4100 ####[facility] [address] [place], [address] IG% 0.400 Normal 0.0-0.9 [facility] Comment on above: Result Comment: IG% - Immature Granulocytes (promyelocytes, myelocytes andmetamyelocytes) > 1% indicates that a LEFT SHIFT is Present. Performed By: #### L 500.2500, L100.0100, L500.4100 ####[facility] [address] [place], [address] Lymphocytes/100 WBC (Bld) 29.4 % Normal 19-41 [facility] Comment on above: Performed By: #### L 500.2500, L100.0100, L500.4100 ####[facility] [address] [place], [address] MCH (RBC) [Entitic mass] 31.9 pg Normal 27.0-32.0 [facility] Comment on above: Performed By: #### L 500.2500, L100.0100, L500.4100 ####[facility] [address] [place], [address] MCHC (RBC) [Mass/Vol] 32.5 g/dL Normal 32-36 [facility] Comment on above: Performed By: #### L 500.2500, L100.0100, L500.4100 ####[facility] [address] [place], [address] MCV (RBC) [Entitic vol] 97.9 fL Normal 81-99 [facility] Comment on above: Performed By: #### L 500.2500, L100.0100, L500.4100 ####[facility] [address] [place], [address] Monocytes/100 WBC (Bld) 8.6 % Normal 0-10 [facility] Comment on above: Performed By: #### L 500.2500, L100.0100, L500.4100 ####[facility] [address] [place], [address] Neutrophils/100 WBC (Bld) 58.3 % Normal 47-70 [facility] Comment on above: Performed By: #### L 500.2500, L100.0100, L500.4100 ####[facility] [address] [place], [address] Nucleated RBC (Bld) [#/Vol] 0 10*3/uL Normal 0-5 [facility] Comment on above: Performed By: #### L 500.2500, L100.0100, L500.4100 ####[facility] [address] [place], [address] Platelet mean volume (Bld) [Entitic vol] 9.8 fL Normal 6.2-12.0 [facility] Comment on above: Performed By: #### L 500.2500, L100.0100, L500.4100 ####[facility] [address] [place], [address] Platelets (Bld) [#/Vol] 193 10*3/uL Normal 150-450 [facility] Comment on above: Performed By: #### L 500.2500, L100.0100, L500.4100 ####[facility] [address] [place], [address] RBC (Bld) [#/Vol] 3.39 10*6/uL Low 4.2-5.[address] [facility] Comment on above: Performed By: #### L 500.2500, L100.0100, L500.4100 ####[facility] [address] [place], [address] RDW SD 44.0 fl High 35.1-43.9 [facility] Comment on above: Performed By: #### L 500.2500, L100.0100, L500.4100 ####[facility] [address] [place], [address] WBC (Bld) [#/Vol] 5.1 10*3/uL Normal 4.4-11.0 [facility] Comment on above: Performed By: #### L 500.2500, L100.0100, L500.4100 ####[facility] [address] [place], [address] Discharge Instructionon 03-02 Discharge Instruction Normal [facility] Hemoglobin A1con 03-18-2024 HbA1c (Bld) [Mass fraction] 10.5 % High 3.8-5.6 [facility] Comment on above: Result Comment: Norm al < 5.7 % Prediabetic 5.7 - 6.4 % Diabetic >or= 6.5 % Please note range changes. Performed By: #### L 501.9946 ####[facility] [address] [place], [address] Lipid Profileon 03-18-2024 Cholesterol [Mass/Vol] 191 mg/dL Normal [address] [facility] Comment on above: Order Comment: Comme nts: NPO at [place] prior to lipid panel Result Comment: <200 mg/dL Desirable 200-240 mg/dL Borderline >240 mg/dL High Risk Performed By: #### L 500.2500, L100.0100, L500.4100 ####[facility] [address] [place], [address] Cholesterol in HDL [Mass/Vol] 64 mg/dL Normal [facility] Comment on above: Order Comment: Comme nts: NPO at [place] prior to lipid panel Result Comment: The drugs N-Acetylcysteine and Metamizole may falselydepress this assay. Reference Range HDL <40 mg/dL Low HDL Cholesterol HDL >or= 60 mg/dL High HDL Cholesterol Performed By: #### L 500.2500, L100.0100, L500.4100 ####[facility] [address] [place], [address] Cholesterol in LDL [Mass/Vol] 105 mg/dL Normal 0-130 [facility] Comment on above: Order Comment: Comme nts: NPO at [place] prior to lipid panel Performed By: #### L 500.2500, L100.0100, L500.4100 ####[facility] [address] [place], [address] Cholesterol in VLDL [Mass/Vol] 22 mg/dL Normal 5-40 [facility] Comment on above: Order Comment: Comme nts: NPO at [place] prior to lipid panel Performed By: #### L 500.2500, L100.0100, L500.4100 ####[facility] [address] [place], [address] Triglyceride [Mass/Vol] 110 mg/dL Normal [facility] Comment on above: Order Comment: Comme nts: NPO at [place] prior to lipid panel Result Comment: The drugs N-Acetylcysteine and Metamizole may falselydepress this assay.Serum Triglycerides Reference Interval Normal <150 mg/dL Borderline high 150 - 199 mg/dL High 200 - 499 mg/dL Very High > or = 500 mg/dL Performed By: #### L 500.2500, L100.0100, L500.4100 ####[facility] [address] [place], [address] Basic Metabolic Profile (BMP )on 03-17-2024 BUN/CRE 5.4 RATIO Low 10-20 [facility] Comment on above: Order Comment: 'TROP ' Serial specimen #1, #2 or #3: 1 Performed By: #### L 100.0100, L500.2500, L300.4310, L300.3900, L501.4020 ####[facility] [address] [place], [address] CA,Total 8.5 mg/dL Normal 8.5-10.1 [facility] Comment on above: Order Comment: 'TROP ' Serial specimen #1, #2 or #3: 1 Performed By: #### L 100.0100, L500.2500, L300.4310, L300.3900, L501.4020 ####[facility] [address] [place], [address] Chloride [Moles/Vol] 96 mmol/L Low 98-107 [facility] Comment on above: Order Comment: 'TROP ' Serial specimen #1, #2 or #3: 1 Performed By: #### L 100.0100, L500.2500, L300.4310, L300.3900, L501.4020 ####[facility] [facility] [address] [place], [address] CO2 [Moles/Vol] 31.0 mmol/L Normal 21.0-32.0 [facility] Comment on above: Order Comment: 'TROP ' Serial specimen #1, #2 or #3: 1 Performed By: #### L 100.0100, L500.2500, L300.4310, L300.3900, L501.4020 ####[facility] [address] [place], [address] Creatinine [Mass/Vol] 2.05 mg/dL High 0.55-1.02 [facility] Comment on above: Order Comment: 'TROP ' Serial specimen #1, #2 or #3: 1 Result Comment: The validity of the calculated GFR GFRAA in patients over70 years has not been determined. Clinical correlation isessential. Performed By: #### L 100.0100, L500.2500, L300.4310, L300.3900, L501.4020 ####[facility] [address] [place], [address] ECRCL 33.59 ml/min Normal [facility] Comment on above: Order Comment: 'TROP ' Serial specimen #1, #2 or #3: 1 Performed By: #### L 100.0100, L500.2500, L300.4310, L300.3900, L501.4020 ####[facility] [address] [place], [address] EST GFR - AA 32 mL/min Low >60 [facility] Comment on above: Order Comment: 'TROP ' Serial specimen #1, #2 or #3: 1 Result Comment: Afri can Somali GFR Calc Performed By: #### L 100.0100, L500.2500, L300.4310, L300.3900, L501.4020 ####[facility] [address] [place], [address] GAP 8 Normal 5-15 [facility] Comment on above: Order Comment: 'TROP ' Serial specimen #1, #2 or #3: 1 Performed By: #### L 100.0100, L500.2500, L300.4310, L300.3900, L501.4020 ####[facility] [address] [place], [address] GFR/1.73 sq M.predicted among non-blacks MDRD (S/P/Bld) [Vol rate/Area] 26 mL/min/{1.73_m2} Low >60 [facility] Comment on above: Order Comment: 'TROP ' Serial specimen #1, #2 or #3: 1 Result Comment: Non- GFR Calc Performed By: #### L 100.0100, L500.2500, L300.4310, L300.3900, L501.4020 ####[facility] [address] [place], [address] Glucose [Mass/Vol] 278 mg/dL High 74-106 [facility] Comment on above: Order Comment: 'TROP ' Serial specimen #1, #2 or #3: 1 Result Comment: Gluc ose result greater than or equal to 200 mg/dLsuggests DIABETES MELLITUS per A.D.A. criteria. Performed By: #### L 100.0100, L500.2500, L300.4310, L300.3900, L501.4020 ####[facility] [address] [place], [address] Potassium [Moles/Vol] 3.6 mmol/L Normal 3.5-5.1 [facility] Comment on above: Order Comment: 'TROP ' Serial specimen #1, #2 or #3: 1 Performed By: #### L 100.0100, L500.2500, L300.4310, L300.3900, L501.4020 ####[facility] [address] [place], [address] Sodium [Moles/Vol] 135 mmol/L Low 136-145 [facility] Comment on above: Order Comment: 'TROP ' Serial specimen #1, #2 or #3: 1 Performed By: #### L 100.0100, L500.2500, L300.4310, L300.3900, L501.4020 ####[facility] [address] [place], [address] Urea nitrogen [Mass/Vol] 11 mg/dL Normal 7-18 [facility] Comment on above: Order Comment: 'TROP ' Serial specimen #1, #2 or #3: 1 Performed By: #### L 100.0100, L500.2500, L300.4310, L300.3900, L501.4020 ####[facility] [address] [place], [address] Bedside Glucoseon 03-17-2024 FINGERSTICK GLU 497 mg/dL Invalid Interpretation Code 74-106 [facility] Comment on above: Result Comment: SONJA GEMENT OF PATIENT CARE PER NURSING PROTOCOL Performed By: #### L 501.080 ####[facility] [address] [place], [address] FINGERSTICK GLU 248 mg/dL High 74-106 [facility] Comment on above: Result Comment: SONJA GEMENT OF PATIENT CARE PER NURSING PROTOCOL Performed By: #### L 501.080 ####[facility] [address] [place], [address] Brain without Contraston Brain without Contrast Normal [facility] CBC W/Diff, Automatedon 03-02 Absolute Lymph 1.71 X10 3/uL Normal 0.83-4.51 [facility] Comment on above: Performed By: #### L 100.0100, L500.2500, L300.4310, L300.3900, L501.4020 ####[facility] [address] [place], [address] Absolute Neut 3.6 X10 3/uL Normal 2.0-7.7 [facility] Comment on above: Performed By: #### L 100.0100, L500.2500, L300.4310, L300.3900, L501.4020 ####[facility] [address] [place], [address] Basophils/100 WBC (Bld) 0.7 % Normal 0-1 [facility] Comment on above: Performed By: #### L 100.0100, L500.2500, L300.4310, L300.3900, L501.4020 ####[facility] [address] [place], [address] Eosinophils/100 WBC (Bld) 2.2 % Normal 0-5 [facility] Comment on above: Performed By: #### L 100.0100, L500.2500, L300.4310, L300.3900, L501.4020 ####[facility] [address] [place], [address] Erythrocyte distribution width (RBC) [Ratio] 12.1 % Normal 11.6-14.6 [facility] Comment on above: Performed By: #### L 100.0100, L500.2500, L300.4310, L300.3900, L501.4020 ####[facility] [address] [place], [address] Hematocrit (Bld) [Volume fraction] 33.5 % Low 37-47 [facility] Comment on above: Performed By: #### L 100.0100, L500.2500, L300.4310, L300.3900, L501.4020 ####[facility] [address] [place], [address] Hemoglobin (Bld) [Mass/Vol] 11.2 g/dL Low 12.0-15.0 [facility] Comment on above: Performed By: #### L 100.0100, L500.2500, L300.4310, L300.3900, L501.4020 ####[facility] [address] [place], [address] IG% 0.300 Normal 0.0-0.9 [facility] Comment on above: Result Comment: IG% - Immature Granulocytes (promyelocytes, myelocytes andmetamyelocytes) > 1% indicates that a LEFT SHIFT is Present. Performed By: #### L 100.0100, L500.2500, L300.4310, L300.3900, L501.4020 ####[facility] [address] [place], [address] Lymphocytes/100 WBC (Bld) 28.7 % Normal 19-41 [facility] Comment on above: Performed By: #### L 100.0100, L500.2500, L300.4310, L300.3900, L501.4020 ####[facility] [address] [place], [address] MCH (RBC) [Entitic mass] 31.7 pg Normal 27.0-32.0 [facility] Comment on above: Performed By: #### L 100.0100, L500.2500, L300.4310, L300.3900, L501.4020 ####[facility] [address] [place], [address] MCHC (RBC) [Mass/Vol] 33.4 g/dL Normal 32-36 [facility] Comment on above: Performed By: #### L 100.0100, L500.2500, L300.4310, L300.3900, L501.4020 ####[facility] [address] [place], [address] MCV (RBC) [Entitic vol] 94.9 fL Normal 81-99 [facility] Comment on above: Performed By: #### L 100.0100, L500.2500, L300.4310, L300.3900, L501.4020 ####[facility] [address] [place], [address] Monocytes/100 WBC (Bld) 7.1 % Normal 0-10 [facility] Comment on above: Performed By: #### L 100.0100, L500.2500, L300.4310, L300.3900, L501.4020 ####[facility] [address] [place], [address] Neutrophils/100 WBC (Bld) 61.0 % Normal 47-70 [facility] Comment on above: Performed By: #### L 100.0100, L500.2500, L300.4310, L300.3900, L501.4020 ####[facility] [address] [place], [address] Nucleated RBC (Bld) [#/Vol] 0 10*3/uL Normal 0-5 [facility] Comment on above: Performed By: #### L 100.0100, L500.2500, L300.4310, L300.3900, L501.4020 ####[facility] [address] [place], [address] Platelet mean volume (Bld) [Entitic vol] 9.9 fL Normal 6.2-12.0 [facility] Comment on above: Performed By: #### L 100.0100, L500.2500, L300.4310, L300.3900, L501.4020 ####[facility] [address] [place], [address] Platelets (Bld) [#/Vol] 186 10*3/uL Normal 150-450 [facility] Comment on above: Performed By: #### L 100.0100, L500.2500, L300.4310, L300.3900, L501.4020 ####[facility] [address] [place], [address] RBC (Bld) [#/Vol] 3.53 10*6/uL Low 4.2-5.[address] [facility] Comment on above: Performed By: #### L 100.0100, L500.2500, L300.4310, L300.3900, L501.4020 ####[facility] [address] [place], [address] RDW SD 41.7 fl Normal 35.1-43.9 [facility] Comment on above: Performed By: #### L 100.0100, L500.2500, L300.4310, L300.3900, L501.4020 ####[facility] [address] [place], [address] WBC (Bld) [#/Vol] 6.0 10*3/uL Normal 4.4-11.0 [facility] Comment on above: Performed By: #### L 100.0100, L500.2500, L300.4310, L300.3900, L501.4020 ####[facility] [address] [place], [address] CTA Head AND Neck W/ Contras ton 03-17-2024 CTA Head AND Neck W/ Contrast Normal [facility] Chest 1 Viewon 03-17-2024 Chest 1 View Normal [facility] Echo Completeon 03-17-2024 Echo Complete Normal [facility] Emergency Department Summary on 03-17-2024 Emergency Department Summary Normal [facility] H AND P Exam - Hospitaliston 03-17-2024 H&P Exam - Hospitalist Normal [facility] L501.4020on 03-17-2024 TROPONIN-I HS 26 pg/mL Normal 3.0-54.0 [facility] Comment on above: Order Comment: 'TROP ' Serial specimen #1, #2 or #3: 1 Result Comment: Plea se Note: New Test Units and Gender Specific Reference Ranges. For more information see Policy Stat Procedure [place] High Sensitivity Troponin (TNIH) and attachments. Performed By: #### L 100.0100, L500.2500, L300.4310, L300.3900, L501.4020 ####[facility] [address] [place], [address] Partial Thromboplast Timeon 03-17-2024 aPTT Coag (Bld) [Time] 25.0 s Normal 24.1-36.2 [facility] Comment on above: Performed By: #### L 100.0100, L500.2500, L300.4310, L300.3900, L501.4020 ####[facility] [address] [place], [address] Prothrombin Time w/INRon INR Coag (PPP) [Relative time] 0.9 {INR} Normal [facility] Comment on above: Performed By: #### L 100.0100, L500.2500, L300.4310, L300.3900, L501.4020 ####[facility] [address] [place], [address] PT Coag (PPP) [Time] 12.3 s Normal 11.7-14.9 [facility] Comment on above: Performed By: #### L 100.0100, L500.2500, L300.4310, L300.3900, L501.4020 ####[facility] [address] [place], [address] STROKE Brain/Head without Co nton 03-17-2024 STROKE Brain/Head without Cont Normal [facility] CNPNon 03-04-2024 CNPN Telephone ([facility]) Margareth GONZALEZ ([id number]) 1965 F Date Time Provider Department 03/04/24 SAIRA JACKSON During your visit today, we recorded the following information about you: Linda Sotelo 03/04/2024 1:48 PM Signed Jenni Castro, RN [facility]; Linda Sotelo Wa! Can you assist me with scheduling this? I tried but it needs financial clearance. She needs scheduled in [place] on a M, W, F, d/t dialysis the other days. Thanks! Jenni STERLING Testing Waiting on referral to be authorized, will call when it is. Linda Sotelo 03/22/2024 8:10 AM Signed It is unfortunately still pending in the referrals. Ashley Fraire 03/23/2024 10:46 AM Signed Per our eap specialist patient has Medicare A AND B and [...] can get the patient scheduled for the Jenni Castro RN 04/07/2024 10:30 AM Signed Called the dialysis center regarding need for insurance card They have not received this yet. Patient is supposed to bring to dialysis to scan in to system once they receive this, they will fax a copy to our office. Allergies As of Date: 03/04/2024 Noted Allergy Reaction VICODIN (HYDROCODONE-ACETAMINO PHE*09/23/2007 11 - Vomiting BALSAM 115 09/23/2007 BALSAM JUAN 09/10/2022 16 - Unknown BARIUM SULFATE 05/01/2023 16 - Unknown BENADRYL ALLERGY DECONGESTANT 05/01/2023 9 - Itching BENADRYL (DIPHENHYDRAMINE HCL) 09/23/2007 2 - Rash 9 - Itching CODEINE 09/23/2007 11 - Vomiting 14 - Other: See Comments LISINOPRIL 05/26/2008 15 - Contraindication-Medic al [facility]* Comments: Acute renal failure MOLD 09/23/2007 [...] 1 tablet by mouth once daily. - Xnypghpo-Sh-Nrw-Fe-FA ( VITAMIN) ORAL Tab Take 1 tablet [...] examination [Z01. (more content not included)... Normal [facility] CNOVon 02-09-2024 CNOV Office Visit (VASSWS ) Margareth GONZALEZ ([id number]) 1965 F [place] Date Time Provider Department 02/09/24 11:00 AM SAIRA JACKSON VASSWS During your visit today, we recorded the following information about you: Pulse Blood pressure 98/minute 172/84 Saira Jackson, DO 02/26/2024 2:11 PM Signed [facility] [place] DEPARTMENT OF VASCULAR SURGERY OUTPATIENT VISIT DATE [...] Depression Diabetes (HCC) Diarrhea DVT, lower extremity ([facility]) 08/2014 Right leg (6) Esophagitis ESRD (end stage renal disease) ([facility]) 07/03/2022 Facial fracture due to fall ([facility]) ([facility]) Fatigue Fibromyalgia Fracture Fracture of shaft [...] AND curettage EGD TRANSORAL BIOPSY SINGLE/MULTIPLE 12/16/2007 ESOPHAGOGASTRODUODENOS COPY TRANSORAL DIAGNOSTIC age 14 EGD LAPAROSCOPIC APPENDECTOMY [...] MG UNDER (more content not included)... [facility] Margareth GONZALEZ ([id number]) 1965 F Date Time Provider Department 01/21/24 IGNACIO CHEATHAM [facility] During your visit today, we recorded the following information about you: Efra Box MA 01/21/2024 2:58 PM Signed Type of form: Circa Form received via walk in When form is completed, Fax form to [facility] Form has been forwarded to Physician Desk: ALANA Malloy Tara, LPN 01/22/2024 9:15 AM Signed Faxed as requested. Allergies As of Date: 01/21/2024 Noted Allergy Reaction VICODIN (HYDROCODONE-ACETAMINO PHE*09/23/2007 11 - Vomiting BALSAM 115 09/23/2007 BALSAM JUAN 09/10/2022 16 - Unknown BARIUM SULFATE 05/01/2023 16 - Unknown BENADRYL ALLERGY DECONGESTANT 05/01/2023 9 - Itching BENADRYL (DIPHENHYDRAMINE HCL) 09/23/2007 2 - Rash 9 - Itching CODEINE 09/23/2007 11 - Vomiting 14 - Other: See Comments LISINOPRIL 05/26/2008 15 - Contraindication-Medic al [facility]* Comments: Acute renal failure MOLD 09/23/2007 [...] 1 tablet by mouth once daily. - Bdhlagne-Tw-Wck-Fe-FA ( VITAMIN) ORAL Tab Take 1 tablet [...] D defi (more content not included)... Normal [facility]18-20[facility] Margareth GONZALEZ ([id number]) 1965 F Date Time Provider Department 01/18/24 [facility] During your visit today, we recorded the [...] of Date: 01/18/2024 Noted Allergy Reaction VICODIN (HYDROCODONE-ACETAMINO PHE*09/23/2007 11 - Vomiting BALSAM 115 09/23/2007 BALSAM JUAN 09/10/2022 16 - Unknown BARIUM SULFATE 05/01/2023 16 - Unknown BENADRYL ALLERGY DECONGESTANT 05/01/2023 9 - Itching BENADRYL (DIPHENHYDRAMINE HCL) 09/23/2007 2 - Rash 9 - Itching CODEINE 09/23/2007 11 - Vomiting 14 - Other: See Comments LISINOPRIL 05/26/2008 15 - Contraindication-Medic al [facility]* Comments: Acute renal failure MOLD 09/23/2007 [...] 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] Order(s):CONSULT TO PHARMACY [184360] Order #: [id number]: 1 Prescriptions as of 02/16/2024 - hydrOXYzine [...] As needed. - flash glucose scanning reader ([employer] Tech[employer]YLE FESTUS 2 READER) Use to check glucose [...] 1 tablet by mouth once daily. - Shettxin-Ew-Ubw-Fe-FA ( VITAMIN) ORAL Tab Take 1 tablet [...] 04/16/2017 C (more content not included)... [facility] Margareth GONZALEZ ([id number]) 1965 F Date Time Provider Department 01/12/24 [facility] During your visit today, we recorded the [...] Myrick with understanding. Assisted with transfer to surgery scheduler to get Sleep Med appt set up. Allergies As of Date: 01/12/2024 Noted Allergy Reaction VICODIN (HYDROCODONE-ACETAMINO PHE*09/23/2007 11 - Vomiting BALSAM 115 09/23/2007 BALSAM JUAN 09/10/2022 16 - Unknown BARIUM SULFATE 05/01/2023 16 - Unknown BENADRYL ALLERGY DECONGESTANT 05/01/2023 9 - Itching BENADRYL (DIPHENHYDRAMINE HCL) 09/23/2007 2 - Rash 9 - Itching CODEINE 09/23/2007 11 - Vomiting 14 - Other: See Comments LISINOPRIL 05/26/2008 15 - Contraindication-Medic al [facility]* Comments: Acute renal failure MOLD 09/23/2007 [...] [G47.33] Order(s):CONSULT TO SLEEP MEDICINE - ADULT [[id number]] Order #: [id number]: 1 FUTURE Prescriptions as of 01/18/2024 - [...] As needed. - flash glucose scanning reader ([employer]YLE FESTUS 2 READER) Use to check glucose [...] 1 tablet by mouth once daily. - Vnbjyypu-Zi-Vei-Fe-FA ( VITAMIN) ORAL Tab Take 1 tablet [...] [R60.9] 09/21/2008 (more content not included)... Normal [facility] POLYSOMNOGRAM (PSG)/HOME SLE EP APNEA TEST (HSAT)on 01-05-2024 POLYSOMNOGRAM (PSG)/HOME SLEEP APNEA TEST (HSAT) [facility] at [address], [facility] [address], [place] [address] ; Home Sleep Apnea Test (HSAT) Study Report Name: Margareth GONZALEZ Date of Study: 01/05/2024 [facility]#: [id number] Age: 58 (: 1965) ESS: N/A Neck [...] unattended Type III, minimum of 4 parameters (65294) Procedure: This study was performed using a Type III ambulatory PSG device and was unattended. The patient was instructed on proper use of the device by a registered angio technologist. The monitored parameters included heart rate, [...] ICSD DIAGNOSIS: Obstructive Sleep Apnea Syndrome [G47.33] IMPRESSION/RECOMMENDAT IONS: 1. This study confirms a diagnosis of [...] of stroke. INTERPRETING PHYSICIAN: Fady Chaney DO, JD I attest that I have performed epoch by epoch review of the entire raw data and find this study to be technically adequate. 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 [facility] Radiology Study observation (narrative) [facility] Office [facility] (FAMPWS ) Margareth GONZALEZ ([id number]) 1965 F Date Time Provider Department 12/25/23 9:40 AM IGNACIO CHEATHAM During your visit today, [...] use coupon/copay card. 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 Has [employer] forms to complete for disability. [...] two more surgeries. She then went to [facility]. Then she went 12 weeks, no weight bearing. Got out of [place] [facility] 10[facility]. Refers that she was put on a ventilator at night. Had a sleep study. Equipment via [place]. Hx of CASSIE. Not following with sleep [...] Take 81 mg by mouth every morning.) Ohvrwkse-Ql-Nih-Fe-FA ( VITAMIN) ORAL Tab Take 1 tablet by mouth once daily. No current facility-administered medications for this visit. ALLERGIES: ALLERGIES Allergen Reactions Vicodin [Hydrocodon* Vomiting Balsam 115 Balsam [place] Unknown Barium Sulfate Unknown Benadryl Allergy De* Itching Benadryl [Diphenhyd* Rash, Itching Codeine Vomiting, Other: See Comments Lisinopril Contraindication-Medic al Surgical Acute renal failure Mold Nsaids (Non-Steroid* Other: See Comments Unable to take nsaids after having gastric bypass. Penicillins Anaphylaxis Seasonal Allergies Other: See Comments Nose runs, sneezing... (more content not included)... Normal [facility] CNOVon 12-21-2023 CNOV Office Visit (AGPOB1 ) Margareth GONZALEZ ([id number]) 1965 F Date Time Provider Department 12/21/23 [...] Chronic kidney disease Contraceptive management Depression Diabetes ([facility]) Diarrhea DVT, lower extremity ([facility]) 08/2014 Right leg (6) Esophagitis ESRD (end stage renal disease) ([facility]) 07/03/2022 Facial fracture due to fall ([facility]) ([facility]) Fatigue Fibromyalgia Fracture Fracture of shaft of fibula GERD (gastroesophageal reflux disease) HLD (hyperlipidemia) on tricor Hyperlipidemia Hypertension Hypomagnesemia Hypopotassemia IBS (irritable bowel syndrome) Insomnia Intertrigo Knee pain Morbid obesity ([facility]) 03/11/2011 Myalgia Nausea Neck pain Neuropathy [...] AND curettage EGD TRANSORAL BIOPSY SINGLE/MULTIPLE 12/16/2007 ESOPHAGOGASTRODUODENOS COPY TRANSORAL DIAGNOSTIC age 14 EGD LAPAROSCOPIC APPENDECTOMY [...] 24 Vap (more content not included)... Normal [facility] Large Joint Arthro/Inj: L kn ee jointon 12-21-2023 Dorene Murillo M D 12/30/2023 11:15 AM Large Joint Arthro/Inj: L knee joint Informed Consent Consent Obtained: Verbal [place] Protocol A moment to CARE was completed. [...] the patient voiced understanding of these instructions. [facility] CNOVon 12-11-2023 CNOV Office Visit (FAMPWS ) Margareth GONZALEZ ([id number]) 1965 F Date Time Provider Department 12/11/23 11:20 AM TRESA MARCUM During your visit today, we recorded the following information about you: Pulse Respiration Blood pressure Weight 102/minute 16/minute 130/72 85.9 kg Tresa Marcum APRN.CNP 12/11/2023 5:24 PM Signed This is a [...] two more surgeries. She then went to [facility]. Then she went 12 weeks, no weight bearing. [facility] [place] of [place] [facility] 10[facility]. Refers that she was put on a ventilator at night. Had a sleep study. Equipment via [place]. Hx of CASSIE. Not following with sleep [...] Chronic kidney disease Contraceptive management Depression Diabetes ([facility]) Diarrhea DVT, lower extremity ([facility]) 08/2014 Right leg (6) Esophagitis ESRD (end stage renal disease) ([facility]) 07/03/2022 Facial fracture due to fall ([facility]) ([facility]) Fatigue Fibromyalgia Fracture Fracture of shaft [...] AND curettage EGD TRANSORAL BIOPSY SINGLE/MULTIPLE 12/16/2007 ESOPHAGOGASTRODUODENOS COPY TRANSORAL DIAGNOSTIC age 14 EGD LAPAROSCOPIC APPENDECTOMY [...] ablation at the same time ALLERGIES Vicodin [Hydrocodone-Acetamino phen], Balsam 115, Balsam [place], Barium Sulfate, Benadryl Allergy Decongestant, Benadryl [Diphenhydramine [...] mg tabl (more content not included)... Normal [facility] CNPNon 12-07-2023 CNPN Telephone (FAMBarrettWS) Margareth GONZALEZ ([id number]) 1965 F Date Time Provider Department 12/07/23 TRESA MARCUM During your visit today, we recorded the following information about you: Clare Singh RN 12/07/2023 1:09 PM Signed Pt called in and reports she has been home from the [place] [facility] for 2 months and has been trying to get in with Dr Cheatham. I got her in with Tresa Marcum PRODUCT TECHNOLOGY SCIENTIST 12/11/23. Pt reports she had R knee surgery went to the [facility] and got an infection I her knee. She states she had to go back to [facility] to have subsequent surgery. Then Pt states she went to [facility] after that for rehab. Allergies As of Date: 12/07/2023 Noted Allergy Reaction VICODIN (HYDROCODONE-ACETAMINO PHE*09/23/2007 11 - Vomiting BALSAM 115 09/23/2007 BALSAM JUAN 09/10/2022 16 - Unknown BARIUM SULFATE 05/01/2023 16 - Unknown BENADRYL ALLERGY DECONGESTANT 05/01/2023 9 - Itching BENADRYL (DIPHENHYDRAMINE HCL) 09/23/2007 2 - Rash 9 - Itching CODEINE 09/23/2007 11 - Vomiting 14 - Other: See Comments LISINOPRIL 05/26/2008 15 - Contraindication-Medic al [facility]* Comments: Acute renal failure MOLD 09/23/2007 [...] at bedtime. - flash glucose scanning reader ([employer] FESTUS 2 READER) Use to check glucose [...] 1 tablet by mouth once daily. - Xxfpknqd-Zn-Auo-Fe-FA ( VITAMIN) ORAL Tab Take 1 tablet [...] Tendonitis [M77. (more content not included)... Normal [facility] Emergency Department Summary on 11-03-2023 Emergency Department Summary Normal [facility] Brain/Head without Contrasto n 11-02-2023 Brain/Head without Contrast Normal [facility] Knee 3 Viewson 11-02-2023 Knee 3 Views Normal [facility] Spine Cervical without Contr ason 11-02-2023 Spine Cervical without Contras Normal [facility] Brain/Head without Contrasto n 10-31-2023 Brain/Head without Contrast Normal [facility] Emergency Department Summary on 10-31-2023 Emergency Department Summary Normal [facility] Spine Cervical without Contr ason 10-31-2023 Spine Cervical without Contras Normal [facility] Tibia Fibula 2 Viewson 10-02 Tibia Fibula 2 Views Normal [facility] CNPNon 09-18-2023 CNPN Telephone (AGPOB1) Margareth GONZALEZ ([id number]) 1965 F Date Time Provider Department 09/18/23 [facility] During your visit today, we recorded the following information about you: Nedra Cramer 09/18/2023 3:01 PM Signed Received vm message from Ruthie with [facility]. Stated that patient desires to participate in aquatic therapy and is asking if that is ok. P# [phone], fax [phone]. Patient seen in the office on 09/13 for her right lower leg. Order prepared for Dr. Murillo's review/approval. Nedra Cramer September 18, 2023 2:58 PM Nedra Cramer 09/18/2023 3:09 PM Addendum PC to Ruthie at [facility] and relayed information. She will check and see if there would be someone available to look over her wounds daily, as Dr. Murillo stated would be necessary, to ensure incisions are ok. Nedra Cramer September 18, 2023 3:08 PM Bela Nedra 09/22/2023 8:49 AM Signed Checking with Dr. Murillo to see if he wants to sign the attached order for aquatics therapy, or should I delete it. Nedra Cramer September 22, 2023 8:49 AM Allergies As of Date: 09/18/2023 Noted Allergy Reaction VICODIN (HYDROCODONE-ACETAMINO PHE*09/23/2007 11 - Vomiting BALSAM 115 09/23/2007 BALSAM JUAN 09/10/2022 16 - Unknown BARIUM SULFATE 05/01/2023 16 - Unknown BENADRYL ALLERGY DECONGESTANT 05/01/2023 9 - Itching BENADRYL (DIPHENHYDRAMINE HCL) 09/23/2007 2 - Rash 9 - Itching CODEINE 09/23/2007 11 - Vomiting 14 - Other: See Comments LISINOPRIL 05/26/2008 15 - Contraindication-Medic al [facility]* Comments: Acute renal failure MOLD 09/23/2007 [...] at bedtime. - flash glucose scanning reader ([employer] FESTUS 2 READER) Use to check glucose [...] 1 tablet by mouth once daily. - Ercqjvrv-Li-Yfa-Fe-FA ( VITAMIN) ORAL Tab Take 1 tablet [...] [B35.1] 06/29 (more content not included)... Normal [facility] XR Knee - right AP and Later atul 09-18-2023 2-view right knee x-rays demonstrate interval healing of the right proximal tibia nonunion with intact orthopaedic implants. [facility] RADIOLOGY [facility] Radiology Study observation (narrative) [facility] Office Visit (AGPOB1 ) Margareth GONZALEZ ([id number]) 1965 F Date Time Provider Department 09/14/23 9:45 AM DORENE MURILLO JESSE[facility]1 During your visit today, we recorded the [...] Routine Post-Operative Follow-Up HISTORY OF PRESENT ILLNESS: M Arnoldfarzaneh Gonzalez is a 58 year old female [...] Chronic kidney disease Contraceptive management Depression Diabetes ([facility]) Diarrhea DVT, lower extremity ([facility]) 08/2014 Right leg (6) Esophagitis ESRD (end stage renal disease) ([facility]) 07/03/2022 Facial fracture due to fall ([facility]) ([facility]) Fatigue Fibromyalgia Fracture Fracture of shaft of fibula GERD (gastroesophageal reflux disease) HLD (hyperlipidemia) on tricor Hyperlipidemia Hypertension Hypomagnesemia Hypopotassemia IBS (irritable bowel syndrome) Insomnia Intertrigo Knee pain Morbid obesity ([facility]) 03/11/2011 Myalgia Nausea Neck pain Neuropathy [...] AND curettage EGD TRANSORAL BIOPSY SINGLE/MULTIPLE 12/16/2007 ESOPHAGOGASTRODUODENOS COPY TRANSORAL DIAGNOSTIC age 14 EGD LAPAROSCOPIC APPENDECTOMY [...] Quit at (more content not included)... [facility] Office Visit (AGPOB1 ) Margareth GONZALEZ ([id number]) 1965 F Date Time Provider Department 08/17/23 11:30 AM DORENE MURILLO During your visit today, we [...] Chronic kidney disease Contraceptive management Depression Diabetes ([facility]) Diarrhea DVT, lower extremity ([facility]) 08/2014 Right leg (6) Esophagitis ESRD (end stage renal disease) ([facility]) 07/03/2022 Facial fracture due to fall ([facility]) ([facility]) Fatigue Fibromyalgia Fracture Fracture of shaft of fibula GERD (gastroesophageal reflux disease) HLD (hyperlipidemia) on tricor Hyperlipidemia Hypertension Hypomagnesemia Hypopotassemia IBS (irritable bowel syndrome) Insomnia Intertrigo Knee pain Morbid obesity ([facility]) 03/11/2011 Myalgia Nausea Neck pain Neuropathy [...] AND curettage EGD TRANSORAL BIOPSY SINGLE/MULTIPLE 12/16/2007 ESOPHAGOGASTRODUODENOS COPY TRANSORAL DIAGNOSTIC age 14 EGD LAPAROSCOPIC APPENDECTOMY [...] at age (more content not included)... Normal [facility] CNDSon 08-07-2023 [facility] HNO ID: [id number] Author: DORENE MURILLO MD Service: Orthopaedic Surgery [...] Mixed Hyperlipidemia Esrd (End Stage Renal Disease) ([facility]) Hyperkalemia Obesity, Class II, Bmi 35-39.9 Thrombophlebitis [...] has been followed by Dorene Garcia MD, . It was determined she would benefit from surgery. The procedure, its risks, benefits, and potential complications were discussed in detail with the patient or POA prior to surgery. Understanding of all topics was conveyed by the patient or POA, and consent was given for surgery. The patient was emergently admitted through the Emergency Department to [facility] on 07/29/2023. Surgery was scheduled and [...] hypoglycemia. Hx of ESRD on HD T, TH, Sat and evaluated by nephrology. Surgical Site [...] 29.60 k (more content not included)... Normal [facility] CONSULT PROGon 08-07-2023 CONSULT PROG HNO ID: [id number] Author: FELIX KOO APRN.SALOONKEEPER Service: Wound/Ostomy Author Type: Nurse Practitioner Type: Consult Progress Note Filed: 08/07/2023 10:35 Note Text: WOUND CARE SERVICE PROGRESS PLISSE MACHINE OPERATOR HELPER NOTE SERVICE DATE: 08/07/2023 SERVICE TIME: 0843 [...] who is seen today with Audra Monet, Wound/field operations technician, as a follow up visit to place [...] Chronic kidney disease Contraceptive management Depression Diabetes ([facility]) Diarrhea DVT, lower extremity ([facility]) 08/2014 Right leg (6) Esophagitis ESRD (end stage renal disease) ([facility]) 07/03/2022 Facial fracture due to fall ([facility]) ([facility]) Fatigue Fibromyalgia Fracture Fracture of shaft [...] AND curettage EGD TRANSORAL BIOPSY SINGLE/MULTIPLE 12/16/2007 ESOPHAGOGASTRODUODENOS COPY TRANSORAL DIAGNOSTIC age 14 EGD LAPAROSCOPIC APPENDECTOMY [...] none Breast Cancer Other none MEDICATIONS: Current Facility-Administered Medications Medication Dose Route Frequency hydrOXYzine HCl 50 mg tab(s) (ATARAX) 50 mg ORAL q 6 H PRN atorvastatin 40 mg tab(s) (LIPITOR) 40 mg ORAL AT BEDTIME melatonin 6 mg tab(s) 6 mg ORAL DAILY (8 PM) sertraline 50 mg tab(s) (ZOLOFT) 50 mg ORAL DAILY amitriptyline 100 mg tab(s) (ELAVIL) 10 (more content not included)... Normal [facility] XR Knee - right AP and Later atul 07-09-2023 2-view right knee x-rays demonstrate maintained length, alignment and rotation of the proximal tibial nonunion with intact orthopaedic implants. [facility] RADIOLOGY [facility] Radiology Study observation (narrative) Griselda booker [facility] Basophil percentageOrdered B y: Sofía Hill on 06-30-2023 Hemoglobin (Bld) [Mass/Vol] 7.0 g/dL 12.0-15.0 [facility] Basophil percentageOrdered B y: Ismael Gillespie on 06-29-2023 Hemoglobin (Bld) [Mass/Vol] 7.5 g/dL 12.0-15.0 [facility] WBC (Bld) [#/Vol] 5.1 10*3/uL 4.4-11.0 [facility] Determination of erythrocyte mean corpuscular volume (MCV)Ordered By: Ismaelnehemiah Gillespie on 06-29-2023 MCV (RBC) [Entitic vol] 109.5 fL 81-99 [facility] Erythrocyte distribution wid th ratioOrdered By: [facility] on 06-29-2023 Erythrocyte distribution width (RBC) [Ratio] 17.3 % 11.6-14.6 [facility] Erythrocyte distribution wid th standard deviationOrdered By: [facility] on 06-29-2023 Erythrocyte distribution width (RBC) [Entitic vol] 67.9 fL 35.1-43.9 [facility] Hematocrit Auto (Bld) [Volum e fraction]Ordered By: Ismaelnehemiah Gillespie on 06-29-2023 Hematocrit (Bld) [Volume fraction] 25.3 % 37-47 [facility] Laboratory - Hematology and Cell countsOrdered By: Ismaelnehemiah Gillespie on 06-29-2023 MCH (RBC) [Entitic mass] 32.5 pg 27.0-32.0 [facility] MCHC (RBC) [Mass/Vol] 29.6 g/dL 32-36 [facility] Platelet mean volume (Bld) [Entitic vol] 8.7 fL 6.2-12.0 [facility] Platelets (Bld) [#/Vol] 162 10*3/uL 150-450 [facility] RBC Auto (Bld) [#/Vol]Ordere d By: Ismaelnehemiah Gillespie on 06-29-2023 RBC (Bld) [#/Vol] 2.31 10*6/uL 4.2-5.[address] [facility] 36on 06-12-2023 36 Name of Caller: Claudia anusha [facility] Contact Reason for Appointment: BREANNA Villavicencio is requesting that Arnold be seen as soon as possible by Dr. Hassan. Linda states that she faxed over records a few days ago. After checking informed her that office did not receive the records. She is going to refax the documents and states she will call back on Thursday. Office Name: [employer] [facility] No Panel Informationon 03-17 IMPRESSION: No radiographic evidence of acute osseous injury Seafood Clerk: [facility] Transcribe Date/Time: Mar 17 2023 12:48P Dictated by : VIDA ROGERS MD This examination was interpreted and the report reviewed and electronically signed by: VIDA ROGERS MD on Mar 17 2023 12:50PM [facility] DIVISION OF RADIOLOGY Radiology Study observation (narrative) [facility] No Panel InformationOrdered By: [facility] Provider on 03-17-2023 [facility] XR Ankle - right AP [...] of the vasculature. DIVISION OF RADIOLOGY Provider, [facility] - 03/17/2023 * * *Final Report* * [...] No radiographic evidence of acute osseous injury Seafood Clerk: [facility] Transcribe Date/Time: Mar 17 2023 12:48P Dictated by : VIDA ROGERS MD This examination was interpreted and the report reviewed and electronically signed by: VIDA ROGERS MD on Mar 17 2023 12:50PM [facility] XR Foot - right AP and Later [...] of the vasculature. DIVISION OF RADIOLOGY Provider, [facility] - 03/17/2023 * * *Final Report* * [...] No radiographic evidence of acute osseous injury Seafood Clerk: [facility] Transcribe Date/Time: Mar 17 2023 12:48P Dictated by : VIDA ROGERS MD This examination was interpreted and the report reviewed and electronically signed by: VIDA ROGERS MD on Mar 17 2023 12:50PM [facility] Absolute lymphocyte countOrd ered By: Shilpa Leal on 03-04-2023 Lymphocytes Auto (Unsp spec) [#/Vol] 1.82 10*3/uL 0.83-4.51 [facility] Basophil percentageOrdered B y: Shilpa Leal on 03-04-2023 Basophils/100 WBC (Bld) 0.6 % 0-1 [facility] Chloride [Moles/Vol] 103 mmol/L 98-107 [facility] Eosinophils/100 WBC (Bld) 3.7 % 0-5 [facility] Glucose [Mass/Vol] 82 mg/dL 74-106 [facility] Neutrophils (Bld) [#/Vol] 2.6 10*3/uL 2.0-7.7 [facility] Neutrophils/100 WBC (Bld) 51.5 % 47-70 [facility] Potassium [Moles/Vol] 4.7 mmol/L 3.5-5.1 [facility] Sodium [Moles/Vol] 138 mmol/L 136-145 [facility] WBC (Bld) [#/Vol] 5.1 10*3/uL 4.4-11.0 [facility] Blood erythrocytes count (nu mber/volume)Ordered By: Shilpa Leal on 03-04-2023 RBC (Bld) [#/Vol] 2.95 10*6/uL 4.2-5.[address] [facility] Blood hemoglobin measurement (mass/volume)Ordered By: mayela Leal on 03-04-2023 Hemoglobin (Bld) [Mass/Vol] 9.1 g/dL 12.0-15.0 [facility] Blood lymphocytes/100 leukoc ytesOrdered By: carloselmwoodmell Leal on 03-04-2023 Lymphocytes/100 WBC (Bld) 35.9 % 19-41 [facility] Blood monocytes/100 leukocyt esOrdered By: [facility] on 03-04-2023 Monocytes/100 WBC (Bld) 7.9 % 0-10 [facility] Blood platelet mean volumeOr dered By: [facility] Le[facility] on 03-04-2023 Platelet mean volume (Bld) [Entitic vol] 8.9 fL 6.2-12.0 [facility] Determination of erythrocyte mean corpuscular volume (MCV)Ordered By: [facility] Le[facility] on 03-04-2023 MCV (RBC) [Entitic vol] 103.1 fL 81-99 [facility] Hematocrit Auto (Bld) [Volum e fraction]Ordered By: [facility] on 03-04-2023 Hematocrit (Bld) [Volume fraction] 30.4 % 37-47 [facility] Laboratory - Chemistry and C hemistry - challengeOrdered By: carloselmwoodmell Petersenvinicio on 03-04-2023 CO2 [Moles/Vol] 31.0 mmol/L 21.0-32.0 [facility] Urea nitrogen/Creatinine [Mass ratio] 5.1 mg/mg 10-20 [facility] Laboratory - Hematology and Cell countsOrdered By: [facility] on 03-04-2023 Erythrocyte distribution width (RBC) [Entitic vol] 58.8 fL 35.1-43.9 [facility] Erythrocyte distribution width (RBC) [Ratio] 15.6 % 11.6-14.6 [facility] Immature granulocytes/100 WBC (Bld) 0.400 % 0.0-0.9 [facility] Comment on above: IG% - Immature Granu locytes (promyelocytes, myelocytes and metamyelocytes) > 1% indicates that a LEFT SHIFT is Present. MCH (RBC) [Entitic mass] 30.8 pg 27.0-32.0 [facility] Nucleated RBC/100 WBC (Bld) [Ratio] 0 % 0-5 [facility] MCHC Auto (RBC) [Mass/Vol]Or dered By: Shilpa Leal on 03-04-2023 MCHC (RBC) [Mass/Vol] 29.9 g/dL 32-36 [facility] No Panel InformationOrdered By: Shilpa Lael on 03-04-2023 Estimated GFR (MDRD) Amer 21 mL/min >60 [facility] Comment on above: GFR Calc Estimated GFR (MDRD) Non-Af Amer 17 mL/min >60 [facility] Comment on above: Non- GFR Calc Platelets bldOrdered By: Bryan Leal on 03-04-2023 Platelets (Bld) [#/Vol] 170 10*3/uL 150-450 [facility] Serum or plasma calcium joya urement (mass/volume)Ordered By: Shilpa Leal on 03-04-2023 Calcium [Mass/Vol] 8.9 mg/dL 8.5-10.1 [facility] Serum or plasma creatinine m easurement (mass/volume)Ordered By: Shilpa Leal on 03-04-2023 Creatinine [Mass/Vol] 2.97 mg/dL 0.55-1.02 [facility] Comment on above: The validity of the calculated GFR & GFRAA in patients over 70 years has not been determined. Clinical correlation is essential. Serum or plasma urea nitroge n measurement (mass/volume)Ordered By: Shilpa Leal on 03-04-2023 Urea nitrogen [Mass/Vol] 15 mg/dL 7-18 [facility] Thin prep Papanicolaou smear with manual screeningOrdered By: Shilpa Leal on 03-04-2023 Thin prep Papanicolaou smear with manual screening 4 5-15 [facility] Absolute lymphocyte countOrd ered By: Shilpa Leal on 02-25-2023 Lymphocytes Auto (Unsp spec) [#/Vol] 1.72 10*3/uL 0.83-4.51 [facility] Basophil percentageOrdered B y: Shilpa Leal on 02-25-2023 Basophils/100 WBC (Bld) 0.6 % 0-1 [facility] Chloride [Moles/Vol] 101 mmol/L 98-107 [facility] Eosinophils/100 WBC (Bld) 4.6 % 0-5 [facility] Glucose [Mass/Vol] 94 mg/dL 74-106 [facility] Neutrophils (Bld) [#/Vol] 2.3 10*3/uL 2.0-7.7 [facility] Neutrophils/100 WBC (Bld) 48.5 % 47-70 [facility] Potassium [Moles/Vol] 3.9 mmol/L 3.5-5.1 [facility] Sodium [Moles/Vol] 137 mmol/L 136-145 [facility] WBC (Bld) [#/Vol] 4.8 10*3/uL 4.4-11.0 [facility] Blood erythrocytes count (nu mber/volume)Ordered By: Shilpa Leal on 02-25-2023 RBC (Bld) [#/Vol] 2.75 10*6/uL 4.2-5.[address] [facility] Blood hemoglobin measurement (mass/volume)Ordered By: Shilpa Leal on 02-25-2023 Hemoglobin (Bld) [Mass/Vol] 8.6 g/dL 12.0-15.0 [facility] Blood lymphocytes/100 leukoc ytesOrdered By: Shilpa Leal on 02-25-2023 Lymphocytes/100 WBC (Bld) 36.2 % 19-41 [facility] Blood monocytes/100 leukocyt esOrdered By: Shilpa Leal on 02-25-2023 Monocytes/100 WBC (Bld) 9.7 % 0-10 [facility] Blood platelet mean volumeOr dered By: Shilpa Leal on 02-25-2023 Platelet mean volume (Bld) [Entitic vol] 9.0 fL 6.2-12.0 [facility] Determination of erythrocyte mean corpuscular volume (MCV)Ordered By: Shilpa Leal on 02-25-2023 MCV (RBC) [Entitic vol] 103.6 fL 81-99 [facility] Hematocrit Auto (Bld) [Volum e fraction]Ordered By: Shilpa eLal on 02-25-2023 Hematocrit (Bld) [Volume fraction] 28.5 % 37-47 [facility] Laboratory - Chemistry and C hemistry - challengeOrdered By: Shilpa Leal on 02-25-2023 CO2 [Moles/Vol] 33.0 mmol/L 21.0-32.0 [facility] Urea nitrogen/Creatinine [Mass ratio] 5.1 mg/mg 10-20 [facility] - Hematology and Cell countsOrdered By: Shilpa Leal on 02-25-2023 Erythrocyte distribution width (RBC) [Entitic vol] 57.9 fL 35.1-43.9 [facility] Erythrocyte distribution width (RBC) [Ratio] 15.7 % 11.6-14.6 [facility] Immature granulocytes/100 WBC (Bld) 0.400 % 0.0-0.9 [facility] Comment on above: IG% - Immature Granu locytes (promyelocytes, myelocytes and metamyelocytes) > 1% indicates that a LEFT SHIFT is Present. MCH (RBC) [Entitic mass] 31.3 pg 27.0-32.0 [facility] Nucleated RBC/100 WBC (Bld) [Ratio] 0 % 0-5 [facility] MCHC Auto (RBC) [Mass/Vol]Or dered By: Shilpa Leal on 02-25-2023 MCHC (RBC) [Mass/Vol] 30.2 g/dL 32-36 [facility] No Panel InformationOrdered By: Shilpa Leal on 02-25-2023 Estimated GFR (MDRD) Amer 21 mL/min >60 [facility] Comment on above: GFR Calc Estimated GFR (MDRD) Non-Af Amer 17 mL/min >60 [facility] Comment on above: Non- GFR Calc Platelets bldOrdered By: Bryan Leal on 02-25-2023 Platelets (Bld) [#/Vol] 197 10*3/uL 150-450 [facility] Serum or plasma calcium joya urement (mass/volume)Ordered By: Shilpa Leal on 02-25-2023 Calcium [Mass/Vol] 8.7 mg/dL 8.5-10.1 [facility] Serum or plasma creatinine m easurement (mass/volume)Ordered By: carlosrocíomell Leal on 02-25-2023 Creatinine [Mass/Vol] 2.95 mg/dL 0.55-1.02 [facility] Comment on above: The validity of the calculated GFR & GFRAA in patients over 70 years has not been determined. Clinical correlation is essential. Serum or plasma urea nitroge n measurement (mass/volume)Ordered By: [facility] on 02-25-2023 Urea nitrogen [Mass/Vol] 15 mg/dL 7-18 [facility] Thin prep Papanicolaou smear with manual screeningOrdered By: [facility] Nicolavinicio on 02-25-2023 Thin prep Papanicolaou smear with manual screening 3 5-15 [facility] Absolute lymphocyte countOrd ered By: carloselmwoodmell Petersenvinicio on 02-18-2023 Lymphocytes Auto (Unsp spec) [#/Vol] 1.71 10*3/uL 0.83-4.51 [facility] Basophil percentageOrdered B y: Shilpa Nicolaaugustine on 02-18-2023 Basophils/100 WBC (Bld) 0.5 % 0-1 [facility] Chloride [Moles/Vol] 103 mmol/L 98-107 [facility] Eosinophils/100 WBC (Bld) 3.0 % 0-5 [facility] Glucose [Mass/Vol] 147 mg/dL 74-106 [facility] Comment on above: Fasting Glucose resu lt greater than or equal to 126 mg/dL suggests DIABETES MELLITUS per A.D.A. criteria. Neutrophils (Bld) [#/Vol] 1.9 10*3/uL 2.0-7.7 [facility] Neutrophils/100 WBC (Bld) 44.5 % 47-70 [facility] Potassium [Moles/Vol] 4.2 mmol/L 3.5-5.1 [facility] Sodium [Moles/Vol] 139 mmol/L 136-145 [facility] WBC (Bld) [#/Vol] 4.3 10*3/uL 4.4-11.0 [facility] Blood erythrocytes count (nu mber/volume)Ordered By: Shilpa Leal on 02-18-2023 RBC (Bld) [#/Vol] 2.46 10*6/uL 4.2-5.[address] [facility] Blood hemoglobin measurement (mass/volume)Ordered By: Shilpa Leal on 02-18-2023 Hemoglobin (Bld) [Mass/Vol] 7.5 g/dL 12.0-15.0 [facility] Blood lymphocytes/100 leukoc ytesOrdered By: Sophyelmwoodmell Leal on 02-18-2023 Lymphocytes/100 WBC (Bld) 40.0 % 19-41 [facility] Blood monocytes/100 leukocyt esOrdered By: Shilpa Leal on 02-18-2023 Monocytes/100 WBC (Bld) 11.5 % 0-10 [facility] Blood platelet mean volumeOr dered By: Shilpa Leal on 02-18-2023 Platelet mean volume (Bld) [Entitic vol] 8.8 fL 6.2-12.0 [facility] Determination of erythrocyte mean corpuscular volume (MCV)Ordered By: Shilpa Leal on 02-18-2023 MCV (RBC) [Entitic vol] 102.8 fL 81-99 [facility] Hematocrit Auto (Bld) [Volum e fraction]Ordered By: Shilpa Leal on 02-18-2023 Hematocrit (Bld) [Volume fraction] 25.3 % 37-47 [facility] Laboratory - Chemistry and C hemistry - challengeOrdered By: Shilpa Leal on 02-18-2023 CO2 [Moles/Vol] 31.0 mmol/L 21.0-32.0 [facility] Urea nitrogen/Creatinine [Mass ratio] 5.0 mg/mg 12-19 [facility] - Hematology and Cell countsOrdered By: Shilpa Leal on 02-18-2023 Erythrocyte distribution width (RBC) [Entitic vol] 62.4 fL 35.1-43.9 [facility] Erythrocyte distribution width (RBC) [Ratio] 16.5 % 11.6-14.6 [facility] Immature granulocytes/100 WBC (Bld) 0.500 % 0.0-0.9 [facility] Comment on above: IG% - Immature Granu locytes (promyelocytes, myelocytes and metamyelocytes) > 1% indicates that a LEFT SHIFT is Present. MCH (RBC) [Entitic mass] 30.5 pg 27.0-32.0 [facility] Nucleated RBC/100 WBC (Bld) [Ratio] 0 % 0-5 [facility] MCHC Auto (RBC) [Mass/Vol]Or dered By: Shilpa Leal on 02-18-2023 MCHC (RBC) [Mass/Vol] 29.6 g/dL 32-36 [facility] No Panel InformationOrdered By: Shilpa Leal on 02-18-2023 Estimated GFR (MDRD) Amer 19 mL/min >60 [facility] Comment on above: GFR Calc Estimated GFR (MDRD) Non-Af Amer 16 mL/min >60 [facility] Comment on above: Non- GFR Calc Platelets bldOrdered By: Bryan Leal on 02-18-2023 Platelets (Bld) [#/Vol] 175 10*3/uL 150-450 [facility] Serum or plasma calcium joya urement (mass/volume)Ordered By: Shilpa Leal on 02-18-2023 Calcium [Mass/Vol] 8.0 mg/dL 8.5-10.1 [facility] Serum or plasma creatinine m easurement (mass/volume)Ordered By: Shilpa Leal on 02-18-2023 Creatinine [Mass/Vol] 3.17 mg/dL 0.55-1.02 [facility] Comment on above: The validity of the calculated GFR & GFRAA in patients over 70 years has not been determined. Clinical correlation is essential. Serum or plasma urea nitroge n measurement (mass/volume)Ordered By: Shilpa Leal on 02-18-2023 Urea nitrogen [Mass/Vol] 16 mg/dL 7-18 [facility] Thin prep Papanicolaou smear with manual screeningOrdered By: Shilpa Leal on 02-18-2023 Thin prep Papanicolaou smear with manual screening 5 5-15 [facility] Absolute lymphocyte countOrd ered By: Shilpa Leal on 02-11-2023 Lymphocytes Auto (Unsp spec) [#/Vol] 1.47 10*3/uL 0.83-4.51 [facility] Basophil percentageOrdered B y: Shilpa Leal on 02-11-2023 Basophils/100 WBC (Bld) 1.0 % 0-1 [facility] Chloride [Moles/Vol] 100 mmol/L 98-107 [facility] Eosinophils/100 WBC (Bld) 4.1 % 0-5 [facility] Glucose [Mass/Vol] 105 mg/dL 74-106 [facility] Comment on above: Fasting Glucose resu lt from 100 to 125 mg/dL suggests IMPAIRED HOMEOSTASIS per A.D.A. criteria. Neutrophils (Bld) [#/Vol] 1.7 10*3/uL 2.0-7.7 [facility] Neutrophils/100 WBC (Bld) 44.9 % 47-70 [facility] Potassium [Moles/Vol] 3.9 mmol/L 3.5-5.1 [facility] Sodium [Moles/Vol] 138 mmol/L 136-145 [facility] WBC (Bld) [#/Vol] 3.9 10*3/uL 4.4-11.0 [facility] Blood erythrocytes count (nu mber/volume)Ordered By: Shilpa Leal on 02-11-2023 RBC (Bld) [#/Vol] 2.31 10*6/uL 4.2-5.[address] [facility] Blood hemoglobin measurement (mass/volume)Ordered By: Shilpa Leal on 02-11-2023 Hemoglobin (Bld) [Mass/Vol] 7.1 g/dL 12.0-15.0 [facility] Blood lymphocytes/100 leukoc ytesOrdered By: Shilpa Leal on 02-11-2023 Lymphocytes/100 WBC (Bld) 38.1 % 19-41 [facility] Blood monocytes/100 leukocyt esOrdered By: Shilpa Leal on 02-11-2023 Monocytes/100 WBC (Bld) 11.4 % 0-10 [facility] Blood platelet mean volumeOr dered By: Shilpa Leal on 02-11-2023 Platelet mean volume (Bld) [Entitic vol] 9.0 fL 6.2-12.0 [facility] Determination of erythrocyte mean corpuscular volume (MCV)Ordered By: Shilpa Leal on 02-11-2023 MCV (RBC) [Entitic vol] 103.0 fL 81-99 [facility] Hematocrit Auto (Bld) [Volum e fraction]Ordered By: [facility] Leal on 02-11-2023 Hematocrit (Bld) [Volume fraction] 23.8 % 37-47 [facility] Laboratory - Chemistry and C hemistry - challengeOrdered By: carloselmwoodmell Leal on 02-11-2023 CO2 [Moles/Vol] 31.0 mmol/L 21.0-32.0 [facility] Urea nitrogen/Creatinine [Mass ratio] 3.7 mg/mg 10-20 [facility] Laboratory - Hematology and Cell countsOrdered By: [facility] on 02-11-2023 Erythrocyte distribution width (RBC) [Entitic vol] 58.1 fL 35.1-43.9 [facility] Erythrocyte distribution width (RBC) [Ratio] 15.9 % 11.6-14.6 [facility] Immature granulocytes/100 WBC (Bld) 0.500 % 0.0-0.9 [facility] Comment on above: IG% - Immature Granu locytes (promyelocytes, myelocytes and metamyelocytes) > 1% indicates that a LEFT SHIFT is Present. MCH (RBC) [Entitic mass] 30.7 pg 27.0-32.0 [facility] Nucleated RBC/100 WBC (Bld) [Ratio] 0 % 0-5 [facility] MCHC Auto (RBC) [Mass/Vol]Or dered By: Shilpa Leal on 02-11-2023 MCHC (RBC) [Mass/Vol] 29.8 g/dL 32-36 [facility] No Panel InformationOrdered By: Shilpa Leal on 02-11-2023 Estimated GFR (MDRD) Amer 21 mL/min >60 [facility] Comment on above: GFR Calc Estimated GFR (MDRD) Non-Af Amer 17 mL/min >60 [facility] Comment on above: Non- GFR Calc Platelets bldOrdered By: Bryan Leal on 02-11-2023 Platelets (Bld) [#/Vol] 243 10*3/uL 150-450 [facility] Serum or plasma calcium joya urement (mass/volume)Ordered By: Shilpa Leal on 02-11-2023 Calcium [Mass/Vol] 8.3 mg/dL 8.5-10.1 [facility] Serum or plasma creatinine m easurement (mass/volume)Ordered By: Shilpa Leal on 02-11-2023 Creatinine [Mass/Vol] 2.99 mg/dL 0.55-1.02 [facility] Comment on above: The validity of the calculated GFR & GFRAA in patients over 70 years has not been determined. Clinical correlation is essential. Serum or plasma urea nitroge n measurement (mass/volume)Ordered By: Shilpa Leal on 02-11-2023 Urea nitrogen [Mass/Vol] 11 mg/dL 7-18 [facility] Thin prep Papanicolaou smear with manual screeningOrdered By: Shilpa Leal on 02-11-2023 Thin prep Papanicolaou smear with manual screening 7 5-15 [facility] Bilirubin Test strip Ql (U)O rdered By: Shilpa Leal on 02-09-2023 Bilirubin Ql (U) Negative Negative [facility] Culture, urineOrdered By: Lisa Leal on 02-09-2023 Bacteria identified Cx Nom (U) Klebsiella pneumoniae sp pneum [facility] Ketones Test strip Ql (U)Ord ered By: Shilpa Leal on 02-09-2023 Ketones Ql (U) Negative Negative [facility] Nitrite Test strip Ql (U)Ord ered By: Shilpa Leal on 02-09-2023 Nitrite Ql (U) Negative Negative [facility] Protein Test strip Ql (U)Ord ered By: Shilpa Leal on 02-09-2023 Protein Ql (U) 100 mg/dl Negative [facility] Urine blood detectionOrdered By: Shilpa Leal on 02-09-2023 RBC Ql (U) 25 /ul Negative [facility] Urine clarityOrdered By: Bryan Leal on 02-09-2023 Clarity (U) Sl. Cloudy Clear [facility] Urine color determinationOrd ered By: Shilpa Leal on 02-09-2023 Color (U) Yellow Yellow [facility] Urine glucose detectionOrder ed By: Shilpa Leal on 02-09-2023 Glucose Ql (U) Normal mg/dl Normal [facility] Urine leukocyte esterase det ection by dipstickOrdered By: Shilpa Leal on 02-09-2023 Leukocyte esterase Test strip Ql (U) 500 /ul Negative [facility] Urine pHOrdered By: Ethan Leal on 02-09-2023 pH (U) 9.0 [pH] 5.0 - 8.0 [facility] Urine specific gravity measu rementOrdered By: Shilpa Leal on 02-09-2023 Specific gravity (U) [Rel density] 1.015 1.002-1.030 [facility] Urobilinogen Auto test strip Ql (U)Ordered By: Shilpa Leal on 02-09-2023 Urobilinogen Ql (U) Normal mg/dl Normal [facility] Absolute lymphocyte countOrd ered By: Neymar Toledo on 02-04-2023 Lymphocytes Auto (Unsp spec) [#/Vol] 1.39 10*3/uL 0.83-4.51 [facility] Absolute lymphocyte countOrd ered By: Shilpa Leal on 02-04-2023 Lymphocytes Auto (Unsp spec) [#/Vol] 1.86 10*3/uL 0.83-4.51 [facility] Basophil percentageOrdered B y: Neymar Toledo on 02-04-2023 Basophils/100 WBC (Bld) 0.7 % 0-1 [facility] Chloride [Moles/Vol] 98 mmol/L 98-107 [facility] Eosinophils/100 WBC (Bld) 2.4 % 0-5 [facility] Glucose [Mass/Vol] 310 mg/dL 74-106 [facility] Comment on above: Glucose result great er than or equal to 200 mg/dLsuggests DIABETES MELLITUS per A.D.A. criteria. Neutrophils (Bld) [#/Vol] 4.8 10*3/uL 2.0-7.7 [facility] Neutrophils/100 WBC (Bld) 69.0 % 47-70 [facility] Potassium [Moles/Vol] 3.9 mmol/L 3.5-5.1 [facility] Sodium [Moles/Vol] 136 mmol/L 136-145 [facility] WBC (Bld) [#/Vol] 7.0 10*3/uL 4.4-11.0 [facility] Basophil percentageOrdered B y: Shilpa Leal on 02-04-2023 Basophils/100 WBC (Bld) 0.7 % 0-1 [facility] Bilirubin [Mass/Vol] 0.40 mg/dL 0.20-1.00 [facility] Comment on above: For patients on eltr ombopag therapy, use of Dimension [place] TBIL is not recommended. Chloride [Moles/Vol] 100 mmol/L 98-107 [facility] Eosinophils/100 WBC (Bld) 4.2 % 0-5 [facility] Glucose [Mass/Vol] 107 mg/dL 74-106 [facility] Comment on above: Fasting Glucose resu lt from 100 to 125 mg/dL suggests IMPAIRED HOMEOSTASIS per A.D.A. criteria. Neutrophils (Bld) [#/Vol] 3.3 10*3/uL 2.0-7.7 [facility] Neutrophils/100 WBC (Bld) 53.7 % 47-70 [facility] Potassium [Moles/Vol] 3.8 mmol/L 3.5-5.1 [facility] Protein [Mass/Vol] 5.1 g/dL 6.4-8.2 [facility] Sodium [Moles/Vol] 137 mmol/L 136-145 [facility] WBC (Bld) [#/Vol] 6.2 10*3/uL 4.4-11.0 [facility] Blood erythrocytes count (nu mber/volume)Ordered By: Neymar Toledo on 02-04-2023 RBC (Bld) [#/Vol] 2.46 10*6/uL 4.2-5.[address] [facility] Blood erythrocytes count (nu mber/volume)Ordered By: Shilpa Leal on 02-04-2023 RBC (Bld) [#/Vol] 2.29 10*6/uL 4.2-5.[address] [facility] Blood hemoglobin measurement (mass/volume)Ordered By: Neymar Toledo on 02-04-2023 Hemoglobin (Bld) [Mass/Vol] 7.3 g/dL 12.0-15.0 [facility] Blood hemoglobin measurement (mass/volume)Ordered By: Shilpa Leal on 02-04-2023 Hemoglobin (Bld) [Mass/Vol] 6.9 g/dL 12.0-15.0 [facility] Blood lymphocytes/100 leukoc ytesOrdered By: Neymar Toledo on 02-04-2023 Lymphocytes/100 WBC (Bld) 19.9 % [facility] Blood lymphocytes/100 leukoc ytesOrdered By: Shilpa Leal on 02-04-2023 Lymphocytes/100 WBC (Bld) 30.2 % [facility] Blood monocytes/100 leukocyt esOrdered By: Neymar Toledo on 02-04-2023 Monocytes/100 WBC (Bld) 6.6 % 0-10 [facility] Blood monocytes/100 leukocyt esOrdered By: Shilpa Leal on 02-04-2023 Monocytes/100 WBC (Bld) 9.6 % 0-10 [facility] Blood platelet mean volumeOr dered By: Neymar Toledo on 02-04-2023 Platelet mean volume (Bld) [Entitic vol] 8.6 fL 6.2-12.0 [facility] Blood platelet mean volumeOr dered By: Shilpa Leal on 02-04-2023 Platelet mean volume (Bld) [Entitic vol] 9.0 fL 6.2-12.0 [facility] Determination of erythrocyte mean corpuscular volume (MCV)Ordered By: Neymar Toledo on 02-04-2023 MCV (RBC) [Entitic vol] 101.2 fL 81-99 [facility] Determination of erythrocyte mean corpuscular volume (MCV)Ordered By: Shilpa Leal on 02-04-2023 MCV (RBC) [Entitic vol] 99.6 fL 81-99 [facility] Hematocrit Auto (Bld) [Volum e fraction]Ordered By: Neymar Toledo on 02-04-2023 Hematocrit (Bld) [Volume fraction] 24.9 % 37-47 [facility] Hematocrit Auto (Bld) [Volum e fraction]Ordered By: Shilpa Leal on 02-04-2023 Hematocrit (Bld) [Volume fraction] 22.8 % 37-47 [facility] Laboratory - Chemistry and C hemistry - challengeOrdered By: Neymar Toledo on 02-04-2023 CO2 [Moles/Vol] 30.0 mmol/L 21.0-32.0 [facility] Urea nitrogen/Creatinine [Mass ratio] 5.2 mg/mg 10- [facility] - Chemistry and C hemistry - challengeOrdered By: Shilpa Leal on 02-04-2023 ALP [Catalytic activity/Vol] 115 U/L 45-117 [facility] ALT [Catalytic activity/Vol] 11 U/L 13-56 [facility] CO2 [Moles/Vol] 34.0 mmol/L 21.0-32.0 [facility] Globulin (S) [Mass/Vol] 3.2 g/dL 2.2-4.2 [facility] Urea nitrogen/Creatinine [Mass ratio] 5.2 mg/mg 10- [facility] - Hematology and Cell countsOrdered By: Neymar Toledo on 02-04-2023 Erythrocyte distribution width (RBC) [Entitic vol] 53.5 fL 35.1-43.9 [facility] Erythrocyte distribution width (RBC) [Ratio] 15.2 % 11.6-14.6 [facility] Immature granulocytes/100 WBC (Bld) 1.400 % 0.0-0.9 [facility] Comment on above: IG% - Immature Granu locytes (promyelocytes, myelocytes and metamyelocytes) > 1% indicates that a LEFT SHIFT is Present. MCH (RBC) [Entitic mass] 29.7 pg 27.0-32.0 [facility] Nucleated RBC/100 WBC (Bld) [Ratio] 0 % 0-5 [facility] - Hematology and Cell countsOrdered By: Shilpa Leal on 02-04-2023 Erythrocyte distribution width (RBC) [Entitic vol] 53.8 fL 35.1-43.9 [facility] Erythrocyte distribution width (RBC) [Ratio] 15.4 % 11.6-14.6 [facility] Immature granulocytes/100 WBC (Bld) 1.600 % 0.0-0.9 [facility] Comment on above: IG% - Immature Granu locytes (promyelocytes, myelocytes and metamyelocytes) > 1% indicates that a LEFT SHIFT is Present. MCH (RBC) [Entitic mass] 30.1 pg 27.0-32.0 [facility] Nucleated RBC/100 WBC (Bld) [Ratio] 0 % 0-5 [facility] MCHC Auto (RBC) [Mass/Vol]Or dered By: Neymar Toledo on 02-04-2023 MCHC (RBC) [Mass/Vol] 29.3 g/dL 32-36 [facility] MCHC Auto (RBC) [Mass/Vol]Or dered By: Shilpa Leal on 02-04-2023 MCHC (RBC) [Mass/Vol] 30.3 g/dL 32-36 [facility] No Panel InformationOrdered By: Neymar Toledo on 02-04-2023 Estimated Creatinine Clearance Calc 19.21 ml/min [facility] Estimated GFR (MDRD) Amer 19 mL/min >60 [facility] Comment on above: GFR Calc Estimated GFR (MDRD) Non-Af Amer 16 mL/min >60 [facility] Comment on above: Non- GFR Calc No Panel InformationOrdered By: Shilpa Leal on 02-04-2023 Estimated GFR (MDRD) Amer 21 mL/min >60 [facility] Comment on above: GFR Calc Estimated GFR (MDRD) Non-Af Amer 18 mL/min >60 [facility] Comment on above: Non- GFR Calc Platelets bldOrdered By: Bay Toledo on 02-04-2023 Platelets (Bld) [#/Vol] 247 10*3/uL 150-450 [facility] Platelets bldOrdered By: Bryan Leal on 02-04-2023 Platelets (Bld) [#/Vol] 265 10*3/uL 150-450 [facility] Serum or plasma albumin joya urement (mass/volume)Ordered By: Shilpa Leal on 02-04-2023 Albumin [Mass/Vol] 1.9 g/dL 3.2-5.0 [facility] Serum or plasma albumin/glob ulin mass ratioOrdered By: Shilpa Leal on 02-04-2023 Albumin/Globulin [Mass ratio] 0.6 {ratio} 0.9-2.4 [facility] Serum or plasma calcium joya urement (mass/volume)Ordered By: Neymar Toledo on 02-04-2023 Calcium [Mass/Vol] 7.9 mg/dL 8.5-10.1 [facility] Serum or plasma calcium joya urement (mass/volume)Ordered By: Shilpa Leal on 02-04-2023 Calcium [Mass/Vol] 8.3 mg/dL 8.5-10.1 [facility] Serum or plasma creatinine m easurement (mass/volume)Ordered By: Neymar Toledo on 02-04-2023 Creatinine [Mass/Vol] 3.26 mg/dL 0.55-1.02 [facility] Comment on above: The validity of the calculated GFR & GFRAA in patients over 70 years has not been determined. Clinical correlation is essential. Serum or plasma creatinine m easurement (mass/volume)Ordered By: Shilpa Leal on 02-04-2023 Creatinine [Mass/Vol] 2.91 mg/dL 0.55-1.02 [facility] Comment on above: The validity of the calculated GFR & GFRAA in patients over 70 years has not been determined. Clinical correlation is essential. Serum or plasma urea nitroge n measurement (mass/volume)Ordered By: Neymar Toledo on 02-04-2023 Urea nitrogen [Mass/Vol] 17 mg/dL 7-18 [facility] Serum or plasma urea nitroge n measurement (mass/volume)Ordered By: Shilpa Leal on 02-04-2023 Urea nitrogen [Mass/Vol] 15 mg/dL 7-18 [facility] Thin prep Papanicolaou smear with manual screeningOrdered By: Neymar Toledo on 02-04-2023 Thin prep Papanicolaou smear with manual screening 8 5-15 [facility] Thin prep Papanicolaou smear with manual screeningOrdered By: Shilpa Leal on 02-04-2023 Thin prep Papanicolaou smear with manual screening 15 U/L 15-37 [facility] Thin prep Papanicolaou smear with manual screening 3 -15 [facility] COVID-19 virus antigen assay Ordered By: Carolina Caba on 01-29-2023 SARS-CoV-2 (COVID-19) Ag IA.rapid Ql (Resp) [facility] Glucose Glucometer (BldC) [M ass/Vol]Ordered By: Carolina Caba on 01-29-2023 Glucose [Mass/Vol] 153 mg/dL 74-106 [facility] Comment on above: MANAGEMENT OF PATIEN T CARE PER NURSING PROTOCOL Absolute lymphocyte countOrd ered By: Branden Banks on 01-28-2023 Lymphocytes Auto (Unsp spec) [#/Vol] 1.96 10*3/uL 0.83-4.51 [facility] Basophil percentageOrdered B y: Branden Banks on 01-28-2023 Basophils/100 WBC (Bld) 0.8 % 0-1 [facility] Eosinophils/100 WBC (Bld) 5.0 % 0-5 [facility] Neutrophils (Bld) [#/Vol] 5.2 10*3/uL 2.0-7.7 [facility] Neutrophils/100 WBC (Bld) 59.6 % 47-70 [facility] WBC (Bld) [#/Vol] 8.7 10*3/uL 4.4-11.0 [facility] Blood erythrocytes count (nu mber/volume)Ordered By: Branden Banks on 01-28-2023 RBC (Bld) [#/Vol] 2.54 10*6/uL 4.2-5.[address] [facility] Blood hemoglobin measurement (mass/volume)Ordered By: Branden Banks on 01-28-2023 Hemoglobin (Bld) [Mass/Vol] 7.6 g/dL 12.0-15.0 [facility] Blood lymphocytes/100 leukoc ytesOrdered By: Branden Banks on 01-28-2023 Lymphocytes/100 WBC (Bld) 22.5 % 19-41 [facility] Blood monocytes/100 leukocyt esOrdered By: Branden Banks on 01-28-2023 Monocytes/100 WBC (Bld) 9.6 % 0-10 [facility] Blood platelet mean volumeOr dered By: Branden Banks on 01-28-2023 Platelet mean volume (Bld) [Entitic vol] 8.9 fL 6.2-12.0 [facility] Determination of erythrocyte mean corpuscular volume (MCV)Ordered By: Branden Banks on 01-28-2023 MCV (RBC) [Entitic vol] 100.0 fL 81-99 [facility] Hematocrit Auto (Bld) [Volum e fraction]Ordered By: Branden Banks on 01-28-2023 Hematocrit (Bld) [Volume fraction] 25.4 % 37-47 [facility] - Hematology and Cell countsOrdered By: Branden Banks on 01-28-2023 Erythrocyte distribution width (RBC) [Entitic vol] 51.3 fL 35.1-43.9 [facility] Erythrocyte distribution width (RBC) [Ratio] 14.2 % 11.6-14.6 [facility] Immature granulocytes/100 WBC (Bld) 2.500 % 0.0-0.9 [facility] Comment on above: IG% - Immature Granu locytes (promyelocytes, myelocytes and metamyelocytes) > 1% indicates that a LEFT SHIFT is Present. MCH (RBC) [Entitic mass] 29.9 pg 27.0-32.0 [facility] Nucleated RBC/100 WBC (Bld) [Ratio] 0 % 0-5 [facility] MCHC Auto (RBC) [Mass/Vol]Or dered By: Branden Banks on 01-28-2023 MCHC (RBC) [Mass/Vol] 29.9 g/dL 32-36 [facility] Platelets bldOrdered By: Miguel A Banks on 01-28-2023 Platelets (Bld) [#/Vol] 303 10*3/uL 150-450 [facility] Basophil percentageOrdered B y: Branden Banks on 01-27-2023 Chloride [Moles/Vol] 103 mmol/L 98-107 [facility] Glucose [Mass/Vol] 124 mg/dL 74-106 [facility] Comment on above: Fasting Glucose resu lt from 100 to 125 mg/dL suggests IMPAIRED HOMEOSTASIS per A.D.A. criteria. Potassium [Moles/Vol] 4.7 mmol/L 3.5-5.1 [facility] Sodium [Moles/Vol] 134 mmol/L 136-145 [facility] Laboratory - Chemistry and C hemistry - challengeOrdered By: Branden Banks on 01-27-2023 CO2 [Moles/Vol] 26.0 mmol/L 21.0-32.0 [facility] Urea nitrogen/Creatinine [Mass ratio] 11.1 mg/mg 10-20 [facility] No Panel InformationOrdered By: Branden Banks on 01-27-2023 Estimated Creatinine Clearance Calc 10.98 ml/min [facility] Estimated GFR (MDRD) Amer 10 mL/min >60 [facility] Comment on above: GFR Calc Estimated GFR (MDRD) Non-Af Amer 8 mL/min >60 [facility] Comment on above: Non- GFR Calc Serum or plasma calcium joya urement (mass/volume)Ordered By: Branden Banks on 01-27-2023 Calcium [Mass/Vol] 8.3 mg/dL 8.5-10.1 [facility] Serum or plasma creatinine m easurement (mass/volume)Ordered By: Branden Banks on 01-27-2023 Creatinine [Mass/Vol] 5.70 mg/dL 0.55-1.02 [facility] Comment on above: The validity of the calculated GFR & GFRAA in patients over 70 years has not been determined. Clinical correlation is essential. Serum or plasma urea nitroge n measurement (mass/volume)Ordered By: Branden Banks on 01-27-2023 Urea nitrogen [Mass/Vol] 63 mg/dL 7-18 [facility] Thin prep Papanicolaou smear with manual screeningOrdered By: Branden Banks on 01-27-2023 Thin prep Papanicolaou smear with manual screening 5 5-15 [facility] Blood manual differential co mment interpretation (narrative result)Ordered By: Branden Banks on 01-26-2023 Manual differential comment Mauricio (Bld) [Interp] SCANNED [facility] Comment on above: LYMPHOPENIA PRESENT Basophil percentageOrdered B y: Maday Mistry on 01-23-2023 Basophil percentage 4.6 mg/dL 2.5-4.[address] [facility] Serum or plasma albumin joya urement (mass/volume)Ordered By: Maday Mistry on 01-23-2023 Albumin [Mass/Vol] 2.3 g/dL 3.2-5.0 [facility] Hemoglobin in reticulocytes (mass per reticulocyte)Ordered By: Branden Banks on 01-21-2023 Hemoglobin (Reticulocytes) [Entitic mass] 32.9 pg 30-35 [facility] Iron measurement (mass/mass) Ordered By: Branden Banks on 01-21-2023 Iron (Unsp spec) [Mass/Mass] 21 ug/dL 50-170 [facility] Laboratory - Chemistry and C hemistry - challengeOrdered By: Branden Banks on 01-21-2023 Cobalamin (Vitamin B12) [Mass/Vol] 543 pg/mL 211-911 [facility] No Panel InformationOrdered By: Branden Banks on 01-21-2023 Immature Reticulocyte Fraction 9.80 % 3.00-15.90 [facility] Reticulocyte Count 1.09 % 0.5-1.5 [facility] Total Iron Binding Capacity 256 ug/dL 250-450 [facility] Vitamin D 25-Hydroxy 83.2 ng/mL [facility] Comment on above: Vitamin D 25(OH) Sta tus Range Deficiency <20 ng/mL (50nmol/L) Insufficiency 20 - 30 ng/mL (50 - 75 nmol/L) Sufficiency 30 - 100 ng/mL (75 - 250 nmol/L) Toxicity >100 ng/mL (>250 nmol/L) Serum or plasma ferritin lino surement (mass/volume)Ordered By: Branden Banks on 01-21-2023 Ferritin [Mass/Vol] 307 ng/mL 8-[address] [facility] Serum or plasma iron saturat ion measurement (mass fraction)Ordered By: Branden Banks on 01-21-2023 Iron saturation [Mass fraction] 8.2 % 15.0-55.0 [facility] Whole blood hemoglobin A1c/t otal hemoglobin ratio (mass fraction)Ordered By: Branden Banks on 01-21-2023 HbA1c (Bld) [Mass fraction] 5.8 % 3.8-5.6 [facility] Comment on above: Normal < 5.7 % Predi abetic 5.7 - 6.4 % Diabetic >or= 6.5 % Please note range changes. Laboratory - Chemistry and C hemistry - challengeOrdered By: Mone Riggs on 01-20-2023 Magnesium [Mass/Vol] 2.1 mg/dL 1.6-2.6 [facility] Laboratory - CoagulationOrde red By: Sylvester Lee on 01-20-2023 aPTT Coag (Bld) [Time] 36.9 s 24.1-36.2 [facility] No Panel InformationOrdered By: Deshawn Tucker on 01-20-2023 Parathyroid Hormone (Intact) 433.9 pg/mL 18.4-80.1 [facility] No Panel InformationOrdered By: Mone Riggs on 01-20-2023 Thyroid Stimulating Hormone (TSH) 3.09 uIU/mL 0.358-3.74 [facility] Absolute lymphocyte countOrd ered By: Yariel Wilks on 01-19-2023 Lymphocytes Auto (Unsp spec) [#/Vol] 1.46 10*3/uL 0.83-4.51 [facility] Basophil percentageOrdered B y: Mone Riggs on 01-19-2023 Chloride [Moles/Vol] 107 mmol/L 98-107 [facility] Glucose [Mass/Vol] 88 mg/dL 74-106 [facility] Potassium [Moles/Vol] 5.7 mmol/L 3.5-5.1 [facility] Sodium [Moles/Vol] 141 mmol/L 136-145 [facility] Basophil percentageOrdered B y: Yariel Wilks on 01-19-2023 Basophils/100 WBC (Bld) 0.7 % 0-1 [facility] Eosinophils/100 WBC (Bld) 4.1 % 0-5 [facility] Neutrophils (Bld) [#/Vol] 3.2 10*3/uL 2.0-7.7 [facility] Neutrophils/100 WBC (Bld) 59.5 % 47-70 [facility] [facility] WBC (Bld) [#/Vol] 5.4 10*3/uL 4.4-11.0 [facility] Blood erythrocytes count (nu mber/volume)Ordered By: Yariel Wilks on 01-19-2023 RBC (Bld) [#/Vol] 3.37 10*6/uL 4.2-5.[address] [facility] Blood hemoglobin measurement (mass/volume)Ordered By: Yariel Wilks on 01-19-2023 Hemoglobin (Bld) [Mass/Vol] 10.2 g/dL 12.0-15.0 [facility] Blood lymphocytes/100 leukoc ytesOrdered By: Yariel Wilks on 01-19-2023 Lymphocytes/100 WBC (Bld) 27.1 % 19-41 [facility] Blood monocytes/100 leukocyt esOrdered By: Yariel Wilks on 01-19-2023 Monocytes/100 WBC (Bld) 8.2 % 0-10 [facility] Blood platelet mean volumeOr dered By: Yariel Wilks on 01-19-2023 Platelet mean volume (Bld) [Entitic vol] 9.1 fL 6.2-12.0 [facility] Determination of erythrocyte mean corpuscular volume (MCV)Ordered By: Yariel Wilks on 01-19-2023 MCV (RBC) [Entitic vol] 101.5 fL 81-99 [facility] Hematocrit Auto (Bld) [Volum e fraction]Ordered By: Yariel Wilks on 01-19-2023 Hematocrit (Bld) [Volume fraction] 34.2 % 37-47 [facility] - Chemistry and C hemistry - challengeOrdered By: Mone Riggs on 01-19-2023 CO2 [Moles/Vol] 27.0 mmol/L 21.0-32.0 [facility] Urea nitrogen/Creatinine [Mass ratio] 9.2 mg/mg 10-20 [facility] - Hematology and Cell countsOrdered By: Yariel Wilks on 01-19-2023 Erythrocyte distribution width (RBC) [Entitic vol] 54.0 fL 35.1-43.9 [facility] Erythrocyte distribution width (RBC) [Ratio] 14.4 % 11.6-14.6 [facility] Immature granulocytes/100 WBC (Bld) 0.400 % 0.0-0.9 [facility] Comment on above: IG% - Immature Granu locytes (promyelocytes, myelocytes and metamyelocytes) > 1% indicates that a LEFT SHIFT is Present. MCH (RBC) [Entitic mass] 30.3 pg 27.0-32.0 [facility] Nucleated RBC/100 WBC (Bld) [Ratio] 0 % 0-5 [facility] MCHC Auto (RBC) [Mass/Vol]Or dered By: Yariel Wilks on 01-19-2023 MCHC (RBC) [Mass/Vol] 29.8 g/dL 32-36 [facility] No Panel InformationOrdered By: Mone Riggs on 01-19-2023 Estimated Creatinine Clearance Calc 11.73 ml/min [facility] Estimated GFR (MDRD) Amer 11 mL/min >60 [facility] Comment on above: GFR Calc Estimated GFR (MDRD) Non-Af Amer 9 mL/min >60 [facility] Comment on above: Non- GFR Calc Platelets bldOrdered By: Franki Wilks on 01-19-2023 Platelets (Bld) [#/Vol] 164 10*3/uL 150-450 [facility] Serum or plasma calcium joya urement (mass/volume)Ordered By: Mone Riggs on 01-19-2023 Calcium [Mass/Vol] 8.4 mg/dL 8.5-10.1 [facility] Serum or plasma creatinine m easurement (mass/volume)Ordered By: Mone Riggs on 01-19-2023 Creatinine [Mass/Vol] 5.34 mg/dL 0.55-1.02 [facility] Comment on above: The validity of the calculated GFR & GFRAA in patients over 70 years has not been determined. Clinical correlation is essential. Serum or plasma urea nitroge n measurement (mass/volume)Ordered By: Mone Riggs on 01-19-2023 Urea nitrogen [Mass/Vol] 49 mg/dL 7-18 [facility] Thin prep Papanicolaou smear with manual screeningOrdered By: Mone Riggs on 01-19-2023 Thin prep Papanicolaou smear with manual screening 7 5-15 [facility] XR TIBIA FIBULA 2V AP/LAT [facility], [facility] (POC)on 2022 BILIRUBIN UA (POCT) Negative Negative [facility] CLARITY UA (POCT) Cloudy [facility] COLOR UA (POCT) Yellow [facility] GLUCOSE UA (POCT) Negative Negative mg/dL [facility] Hemoglobin Ql (U) Small Abnormal Negative [facility] KETONE UA (POCT) Negative Negative mg/dL [facility] LEUKOCYTES UA (POCT) Large Abnormal Negative [facility] NITRITE UA (POCT) Negative Negative [facility] PH UA (POCT) 8.5 Abnormal 4.5 - 8.0 [facility] Protein Ql (U) 100 mg/dL Abnormal Negative mg/dL [facility] SPECIFIC GRAVITY UA (POCT) 1.015 1.005 - 1.030 [facility] UROBILINOGEN UA (POCT) 0.2 E.U./dL Rosa l E.U./dL [facility] No Panel Informationon 11-10 [facility] Absolute lymphocyte countOrd ered By: Audra Ahuja on 10-30-2022 Lymphocytes Auto (Unsp spec) [#/Vol] 0.97 10*3/uL 0.83-4.51 [facility] Basophil percentageOrdered B y: Audra Ahuja on 10-30-2022 Basophils/100 WBC (Bld) 0.7 % 0-1 [facility] Chloride [Moles/Vol] 97 mmol/L 98-107 [facility] Eosinophils/100 WBC (Bld) 3.2 % 0-5 [facility] Glucose [Mass/Vol] 73 mg/dL 74-106 [facility] Neutrophils (Bld) [#/Vol] 2.9 10*3/uL 2.0-7.7 [facility] Neutrophils/100 WBC (Bld) 65.5 % 47-70 [facility] Potassium [Moles/Vol] 4.2 mmol/L 3.5-5.1 [facility] Sodium [Moles/Vol] 132 mmol/L 136-145 [facility] WBC (Bld) [#/Vol] 4.4 10*3/uL 4.4-11.0 [facility] Blood erythrocytes count (nu mber/volume)Ordered By: Audra Ahuja on 10-30-2022 RBC (Bld) [#/Vol] 3.29 10*6/uL 4.2-5.[address] [facility] Blood hemoglobin measurement (mass/volume)Ordered By: Audra Ahuja on 10-30-2022 Hemoglobin (Bld) [Mass/Vol] 10.5 g/dL 12.0-15.0 [facility] Blood lymphocytes/100 leukoc ytesOrdered By: Audra Ahuja on 10-30-2022 Lymphocytes/100 WBC (Bld) 21.8 % 19-41 [facility] Blood monocytes/100 leukocyt esOrdered By: Audra Ahuja on 10-30-2022 Monocytes/100 WBC (Bld) 8.6 % 0-10 [facility] Blood platelet mean volumeOr dered By: Audra Ahuja on 10-30-2022 Platelet mean volume (Bld) [Entitic vol] 9.1 fL 6.2-12.0 [facility] Determination of erythrocyte mean corpuscular volume (MCV)Ordered By: Audra Ahuja on 10-30-2022 MCV (RBC) [Entitic vol] 103.0 fL 81-99 [facility] Hematocrit Auto (Bld) [Volum e fraction]Ordered By: Audra Ahuja on 10-30-2022 Hematocrit (Bld) [Volume fraction] 33.9 % 37-47 [facility] - Chemistry and C hemistry - challengeOrdered By: Audra Ahuja on 10-30-2022 CO2 [Moles/Vol] 30.0 mmol/L 21.0-32.0 [facility] Urea nitrogen/Creatinine [Mass ratio] 3.8 mg/mg 10-20 [facility] - Hematology and Cell countsOrdered By: Audra Ahuja on 10-30-2022 Erythrocyte distribution width (RBC) [Entitic vol] 53.3 fL 35.1-43.9 [facility] Erythrocyte distribution width (RBC) [Ratio] 14.3 % 11.6-14.6 [facility] Immature granulocytes/100 WBC (Bld) 0.200 % 0.0-0.9 [facility] Comment on above: IG% - Immature Granu locytes (promyelocytes, myelocytes and metamyelocytes) > 1% indicates that a LEFT SHIFT is Present. MCH (RBC) [Entitic mass] 31.9 pg 27.0-32.0 [facility] Nucleated RBC/100 WBC (Bld) [Ratio] 0 % 0-5 [facility] MCHC Auto (RBC) [Mass/Vol]Or dered By: Audra Ahuja on 10-30-2022 MCHC (RBC) [Mass/Vol] 31.0 g/dL 32-36 [facility] No Panel InformationOrdered By: Audra Ahuja on 10-30-2022 Troponin I High Sensitivity 17 pg/mL 3.0-54.0 [facility] Comment on above: Please Note: New [place] t Units and Gender Specific Reference Ranges. For more information see Policy Stat Procedure [place] High Sensitivity Troponin (TNIH) and attachments. Estimated Creatinine Clearance Calc 15.93 ml/min [facility] Estimated GFR (MDRD) Amer 15 mL/min >60 [facility] Comment on above: GFR Calc Estimated GFR (MDRD) Non-Af Amer 13 mL/min >60 [facility] Comment on above: Non- GFR Calc Platelets bldOrdered By: Luzmaria Ahuja on 10-30-2022 Platelets (Bld) [#/Vol] 188 10*3/uL 150-450 [facility] Serum or plasma calcium joya urement (mass/volume)Ordered By: Audra Ahuja on 10-30-2022 Calcium [Mass/Vol] 9.1 mg/dL 8.5-10.1 [facility] Serum or plasma creatinine m easurement (mass/volume)Ordered By: Audra Ahuja on 10-30-2022 Creatinine [Mass/Vol] 3.93 mg/dL 0.55-1.02 [facility] Comment on above: The validity of the calculated GFR & GFRAA in patients over 70 years has not been determined. Clinical correlation is essential. Serum or plasma urea nitroge n measurement (mass/volume)Ordered By: Audra Ahuja on 10-30-2022 Urea nitrogen [Mass/Vol] 15 mg/dL 7-18 [facility] Thin prep Papanicolaou smear with manual screeningOrdered By: Audra Ahuja on 10-30-2022 Thin prep Papanicolaou smear with manual screening 5 5-15 [facility] Basophil percentageOrdered B y: Tyler Murrieta on 09-24-2022 Basophil percentage 6.1 mg/dL 2.5-4.[address] [facility] Chloride [Moles/Vol] 115 mmol/L 98-107 [facility] Glucose [Mass/Vol] 87 mg/dL 74-106 [facility] Potassium [Moles/Vol] 5.0 mmol/L 3.5-5.1 [facility] Sodium [Moles/Vol] 140 mmol/L 136-145 [facility] - Chemistry and C hemistry - challengeOrdered By: Tyler Murrieta on 09-24-2022 CO2 [Moles/Vol] 18.0 mmol/L 21.0-32.0 [facility] Urea nitrogen/Creatinine [Mass ratio] 10.5 mg/mg 10-20 [facility] No Panel InformationOrdered By: Tyler Murrieta on 09-24-2022 Estimated GFR (MDRD) Amer 9 mL/min >60 [facility] Comment on above: GFR Calc Estimated GFR (MDRD) Non-Af Amer 7 mL/min >60 [facility] Comment on above: Non- GFR Calc Serum or plasma calcium joya urement (mass/volume)Ordered By: Tyler Murrieta on 09-24-2022 Calcium [Mass/Vol] 8.2 mg/dL 8.5-10.1 [facility] Serum or plasma creatinine m easurement (mass/volume)Ordered By: Tyler Murrieta on 09-24-2022 Creatinine [Mass/Vol] 6.22 mg/dL 0.55-1.02 [facility] Comment on above: The validity of the calculated GFR & GFRAA in patients over 70 years has not been determined. Clinical correlation is essential. Serum or plasma urea nitroge n measurement (mass/volume)Ordered By: Tyler Murrieta on 09-24-2022 Urea nitrogen [Mass/Vol] 65 mg/dL 7-18 [facility] Thin prep Papanicolaou smear with manual screeningOrdered By: Tyler Murrieta on 09-24-2022 Thin prep Papanicolaou smear with manual screening 7 5-15 [facility] Basophil percentageOrdered B y: Sofía Hill on 09-19-2022 Chloride [Moles/Vol] 115 mmol/L 98-107 [facility] Glucose [Mass/Vol] 96 mg/dL 74-106 [facility] Potassium [Moles/Vol] 4.4 mmol/L 3.5-5.1 [facility] Sodium [Moles/Vol] 141 mmol/L 136-145 [facility] - Chemistry and C hemistry - challengeOrdered By: Sfoía Hill on 09-19-2022 CO2 [Moles/Vol] 18.0 mmol/L 21.0-32.0 [facility] Urea nitrogen/Creatinine [Mass ratio] 12.5 mg/mg 10-20 [facility] No Panel InformationOrdered By: Sofía Hill on 09-19-2022 Estimated GFR (MDRD) Amer 10 mL/min >60 [facility] Comment on above: GFR Calc Estimated GFR (MDRD) Non-Af Amer 8 mL/min >60 [facility] Comment on above: Non- GFR Calc Serum or plasma calcium joya urement (mass/volume)Ordered By: Sofía Hill on 09-19-2022 Calcium [Mass/Vol] 8.2 mg/dL 8.5-10.1 [facility] Serum or plasma creatinine m easurement (mass/volume)Ordered By: Sofía Hill on 09-19-2022 Creatinine [Mass/Vol] 5.84 mg/dL 0.55-1.02 [facility] Comment on above: The validity of the calculated GFR & GFRAA in patients over 70 years has not been determined. Clinical correlation is essential. Serum or plasma urea nitroge n measurement (mass/volume)Ordered By: Sofía Hill on 09-19-2022 Urea nitrogen [Mass/Vol] 73 mg/dL 7-18 [facility] Thin prep Papanicolaou smear with manual screeningOrdered By: Sofía Hill on 09-19-2022 Thin prep Papanicolaou smear with manual screening 8 5-15 [facility] Basophil percentageOrdered B y: Sofía Hill on 09-17-2022 Chloride [Moles/Vol] 112 mmol/L 98-107 [facility] Glucose [Mass/Vol] 98 mg/dL 74-106 [facility] Potassium [Moles/Vol] 4.9 mmol/L 3.5-5.1 [facility] Sodium [Moles/Vol] 141 mmol/L 136-145 [facility] - Chemistry and C hemistry - challengeOrdered By: Sofía Hill on 09-17-2022 CO2 [Moles/Vol] 18.0 mmol/L 21.0-32.0 [facility] Urea nitrogen/Creatinine [Mass ratio] 12.4 mg/mg 10-20 [facility] No Panel InformationOrdered By: Sofía Hill on 09-17-2022 Estimated GFR (MDRD) Amer 10 mL/min >60 [facility] Comment on above: GFR Calc Estimated GFR (MDRD) Non-Af Amer 8 mL/min >60 [facility] Comment on above: Non- GFR Calc Serum or plasma calcium joya urement (mass/volume)Ordered By: Sofía Hill on 09-17-2022 Calcium [Mass/Vol] 8.3 mg/dL 8.5-10.1 [facility] Serum or plasma creatinine m easurement (mass/volume)Ordered By: Sofía Hill on 09-17-2022 Creatinine [Mass/Vol] 5.88 mg/dL 0.55-1.02 [facility] Comment on above: The validity of the calculated GFR & GFRAA in patients over 70 years has not been determined. Clinical correlation is essential. Serum or plasma urea nitroge n measurement (mass/volume)Ordered By: Sofía Hill on 09-17-2022 Urea nitrogen [Mass/Vol] 73 mg/dL 7-18 [facility] Thin prep Papanicolaou smear with manual screeningOrdered By: Sofía Hill on 09-17-2022 Thin prep Papanicolaou smear with manual screening 11 5-15 [facility] Absolute lymphocyte countOrd ered By: Allison Chang on 09-15-2022 Lymphocytes Auto (Unsp spec) [#/Vol] 1.50 10*3/uL 0.83-4.51 [facility] Basophil percentageOrdered B y: Allison Chang on 09-15-2022 Basophils/100 WBC (Bld) 0.5 % 0-1 [facility] Bilirubin [Mass/Vol] 0.30 mg/dL 0.20-1.00 [facility] Comment on above: For patients on eltr ombopag therapy, use of Dimension [place] TBIL is not recommended. Chloride [Moles/Vol] 111 mmol/L 98-107 [facility] Eosinophils/100 WBC (Bld) 4.6 % 0-5 [facility] Glucose [Mass/Vol] 147 mg/dL 74-106 [facility] Comment on above: Fasting Glucose resu lt greater than or equal to 126 mg/dL suggests DIABETES MELLITUS per A.D.A. criteria. Neutrophils (Bld) [#/Vol] 4.2 10*3/uL 2.0-7.7 [facility] Neutrophils/100 WBC (Bld) 64.7 % 47-70 [facility] Potassium [Moles/Vol] 5.4 mmol/L 3.5-5.1 [facility] Protein [Mass/Vol] 5.4 g/dL 6.4-8.2 [facility] Sodium [Moles/Vol] 136 mmol/L 136-145 [facility] WBC (Bld) [#/Vol] 6.6 10*3/uL 4.4-11.0 [facility] Blood erythrocytes count (nu mber/volume)Ordered By: Allison Chang on 09-15-2022 RBC (Bld) [#/Vol] 2.50 10*6/uL 4.2-5.[address] [facility] Blood hemoglobin measurement (mass/volume)Ordered By: Allison Chang on 09-15-2022 Hemoglobin (Bld) [Mass/Vol] 7.7 g/dL 12.0-15.0 [facility] Blood lymphocytes/100 leukoc ytesOrdered By: Allison Chang on 09-15-2022 Lymphocytes/100 WBC (Bld) 22.9 % 19-41 [facility] Blood monocytes/100 leukocyt esOrdered By: Allison Chang on 09-15-2022 Monocytes/100 WBC (Bld) 6.7 % 0-10 [facility] Blood platelet mean volumeOr dered By: Allison Chang on 09-15-2022 Platelet mean volume (Bld) [Entitic vol] 9.8 fL 6.2-12.0 [facility] Determination of erythrocyte mean corpuscular volume (MCV)Ordered By: Allison Chang on 09-15-2022 MCV (RBC) [Entitic vol] 102.4 fL 81-99 [facility] Hematocrit Auto (Bld) [Volum e fraction]Ordered By: Allison Chang on 09-15-2022 Hematocrit (Bld) [Volume fraction] 25.6 % 37-47 [facility] - Chemistry and C hemistry - challengeOrdered By: Allison Chang on 09-15-2022 ALP [Catalytic activity/Vol] 71 U/L 45-117 [facility] ALT [Catalytic activity/Vol] 17 U/L 13-56 [facility] CO2 [Moles/Vol] 18.0 mmol/L 21.0-32.0 [facility] Cobalamin (Vitamin B12) [Mass/Vol] 416 pg/mL 211-911 [facility] Globulin (S) [Mass/Vol] 3.0 g/dL 2.2-4.2 [facility] Urea nitrogen/Creatinine [Mass ratio] 12.0 mg/mg 10-20 [facility] - Hematology and Cell countsOrdered By: Allison Chang on 09-15-2022 Erythrocyte distribution width (RBC) [Entitic vol] 47.8 fL 35.1-43.9 [facility] Erythrocyte distribution width (RBC) [Ratio] 12.8 % 11.6-14.6 [facility] Immature granulocytes/100 WBC (Bld) 0.600 % 0.0-0.9 [facility] Comment on above: IG% - Immature Granu locytes (promyelocytes, myelocytes and metamyelocytes) > 1% indicates that a LEFT SHIFT is Present. MCH (RBC) [Entitic mass] 30.8 pg 27.0-32.0 [facility] Nucleated RBC/100 WBC (Bld) [Ratio] 0 % 0-5 [facility] MCHC Auto (RBC) [Mass/Vol]Or dered By: Allison Chang on 09-15-2022 MCHC (RBC) [Mass/Vol] 30.1 g/dL 32-36 [facility] No Panel InformationOrdered By: Allison Chang on 09-15-2022 Estimated GFR (MDRD) Amer 10 mL/min >60 [facility] Comment on above: GFR Calc Estimated GFR (MDRD) Non-Af Amer 8 mL/min >60 [facility] Comment on above: Non- GFR Calc Vitamin D 25-Hydroxy 54.4 ng/mL [facility] Comment on above: Vitamin D 25(OH) Sta tus Range Deficiency <20 ng/mL (50nmol/L) Insufficiency 20 - 30 ng/mL (50 - 75 nmol/L) Sufficiency 30 - 100 ng/mL (75 - 250 nmol/L) Toxicity >100 ng/mL (>250 nmol/L) Platelets bldOrdered By: Joshua Chang on 09-15-2022 Platelets (Bld) [#/Vol] 150 10*3/uL 150-450 [facility] Serum or plasma albumin joya urement (mass/volume)Ordered By: Allison Chang on 09-15-2022 Albumin [Mass/Vol] 2.4 g/dL 3.2-5.0 [facility] Serum or plasma albumin/glob ulin mass ratioOrdered By: Allison Chang on 09-15-2022 Albumin/Globulin [Mass ratio] 0.8 {ratio} 0.9-2.4 [facility] Serum or plasma calcium joya urement (mass/volume)Ordered By: Allison Chang on 09-15-2022 Calcium [Mass/Vol] 8.0 mg/dL 8.5-10.1 [facility] Serum or plasma creatinine m easurement (mass/volume)Ordered By: Allison Chang on 09-15-2022 Creatinine [Mass/Vol] 5.73 mg/dL 0.55-1.02 [facility] Comment on above: The validity of the calculated GFR & GFRAA in patients over 70 years has not been determined. Clinical correlation is essential. Serum or plasma urea nitroge n measurement (mass/volume)Ordered By: Allison Chang on 09-15-2022 Urea nitrogen [Mass/Vol] 69 mg/dL 7-18 [facility] Thin prep Papanicolaou smear with manual screeningOrdered By: Allison Chang on 09-15-2022 Thin prep Papanicolaou smear with manual screening 16 U/L 15-37 [facility] Thin prep Papanicolaou smear with manual screening 7 5-15 [facility] Whole blood hemoglobin A1c/t otal hemoglobin ratio (mass fraction)Ordered By: Allison Chang on 09-15-2022 HbA1c (Bld) [Mass fraction] 7.5 % 3.8-5.6 [facility] Comment on above: Normal < 5.7 % Predi abetic 5.7 - 6.4 % Diabetic >or= 6.5 % Please note range changes. Glucose Glucometer (BldC) [M ass/Vol]Ordered By: Sylvester Ortiz on 09-12-2022 Glucose [Mass/Vol] 181 mg/dL 74-106 [facility] Comment on above: MANAGEMENT OF PATIEN T CARE PER NURSING PROTOCOL Absolute lymphocyte countOrd ered By: Lizzy Bragg on 09-10-2022 Lymphocytes Auto (Unsp spec) [#/Vol] 1.47 10*3/uL 0.83-4.51 [facility] Basophil percentageOrdered B y: Lizzy Bragg on 09-10-2022 Basophils/100 WBC (Bld) 0.6 % 0-1 [facility] Bilirubin [Mass/Vol] 0.40 mg/dL 0.20-1.00 [facility] Comment on above: For patients on eltr ombopag therapy, use of Dimension [place] TBIL is not recommended. Chloride [Moles/Vol] 110 mmol/L 98-107 [facility] Eosinophils/100 WBC (Bld) 2.3 % 0-5 [facility] Glucose [Mass/Vol] 243 mg/dL 74-106 [facility] Comment on above: Glucose result great er than or equal to 200 mg/dLsuggests DIABETES MELLITUS per A.D.A. criteria. Neutrophils (Bld) [#/Vol] 4.4 10*3/uL 2.0-7.7 [facility] Neutrophils/100 WBC (Bld) 66.3 % 47-70 [facility] Potassium [Moles/Vol] 5.0 mmol/L 3.5-5.1 [facility] Protein [Mass/Vol] 6.0 g/dL 6.4-8.2 [facility] Sodium [Moles/Vol] 137 mmol/L 136-145 [facility] WBC (Bld) [#/Vol] 6.6 10*3/uL 4.4-11.0 [facility] Basophil percentage 6.5 mg/dL 2.5-4.[address] [facility] Basophil percentageOrdered B y: Minh Darrenfreida on 09-10-2022 Lactate [Moles/Vol] 0.8 mmol/L 0.4-2.[address] [facility] Blood erythrocytes count (nu mber/volume)Ordered By: Lizzy Bragg on 09-10-2022 RBC (Bld) [#/Vol] 2.80 10*6/uL 4.2-5.[address] [facility] Blood hemoglobin measurement (mass/volume)Ordered By: Lizzy Bragg on 09-10-2022 Hemoglobin (Bld) [Mass/Vol] 8.8 g/dL 12.0-15.0 [facility] Blood lymphocytes/100 leukoc ytesOrdered By: White on 09-10-2022 Lymphocytes/100 WBC (Bld) 22.2 % 19-41 [facility] Blood monocytes/100 leukocyt esOrdered By: Mahsa on 09-10-2022 Monocytes/100 WBC (Bld) 8.3 % 0-10 [facility] Blood platelet mean volumeOr dered By: Lizzy White on 09-10-2022 Platelet mean volume (Bld) [Entitic vol] 9.5 fL 6.2-12.0 [facility] Determination of erythrocyte mean corpuscular volume (MCV)Ordered By: Lizzy Bragg on 09-10-2022 MCV (RBC) [Entitic vol] 97.5 fL 81-99 [facility] Erythrocyte sedimentation ra teOrdered By: Minh Arroyo on 09-10-2022 ESR (Bld) [Velocity] 21 mm/h 0-30 [facility] Hematocrit Auto (Bld) [Volum e fraction]Ordered By: Lizzy Bragg on 09-10-2022 Hematocrit (Bld) [Volume fraction] 27.3 % 37-47 [facility] - Chemistry and C hemistry - challengeOrdered By: Lizzy Bragg on 09-10-2022 ALP [Catalytic activity/Vol] 86 U/L 45-117 [facility] ALT [Catalytic activity/Vol] 20 U/L 13-56 [facility] CO2 [Moles/Vol] 19.0 mmol/L 21.0-32.0 [facility] Globulin (S) [Mass/Vol] 3.4 g/dL 2.2-4.2 [facility] Urea nitrogen/Creatinine [Mass ratio] 9.5 mg/mg 10-20 [facility] Magnesium [Mass/Vol] 1.6 mg/dL 1.6-2.6 [facility] - Hematology and Cell countsOrdered By: Lizzy Bragg on 09-10-2022 Erythrocyte distribution width (RBC) [Entitic vol] 45.5 fL 35.1-43.9 [facility] Erythrocyte distribution width (RBC) [Ratio] 12.8 % 11.6-14.6 [facility] Immature granulocytes/100 WBC (Bld) 0.300 % 0.0-0.9 [facility] Comment on above: IG% - Immature Granu locytes (promyelocytes, myelocytes and metamyelocytes) > 1% indicates that a LEFT SHIFT is Present. MCH (RBC) [Entitic mass] 31.4 pg 27.0-32.0 [facility] Nucleated RBC/100 WBC (Bld) [Ratio] 0 % 0-5 [facility] MCHC Auto (RBC) [Mass/Vol]Or dered By: Lizzy Bragg on 09-10-2022 MCHC (RBC) [Mass/Vol] 32.2 g/dL 32-36 [facility] No Panel InformationOrdered By: Lizzy Bragg on 09-10-2022 Estimated Creatinine Clearance Calc 11.95 ml/min [facility] Estimated GFR (MDRD) Amer 11 mL/min >60 [facility] Comment on above: GFR Calc Estimated GFR (MDRD) Non-Af Amer 9 mL/min >60 [facility] Comment on above: Non- GFR Calc Platelets bldOrdered By: Tg Bragg on 09-10-2022 Platelets (Bld) [#/Vol] 137 10*3/uL 150-450 [facility] Serum or plasma C reactive p rotein measurement (mass/volume)Ordered By: Minh [place]o on 09-10-2022 CRP [Mass/Vol] 15.60 mg/L 0.0-3.0 [facility] Comment on above: C-Reactive Protein ( CRP) provides useful information for thediagnosis, therapy and monitoring of inflammatory processesand associated diseases. For the evaluation of Relative Riskfor Cardiovascular Disease, a High Sensitivity CRP (HSCRP)should be ordered. Serum or plasma albumin joya urement (mass/volume)Ordered By: Lizzy Bragg on 09-10-2022 Albumin [Mass/Vol] 2.6 g/dL 3.2-5.0 [facility] Serum or plasma albumin/glob ulin mass ratioOrdered By: Lizzy Bragg on 09-10-2022 Albumin/Globulin [Mass ratio] 0.8 {ratio} 0.9-2.4 [facility] Serum or plasma calcium joya urement (mass/volume)Ordered By: Lizzy Bragg on 09-10-2022 Calcium [Mass/Vol] 7.9 mg/dL 8.5-10.1 [facility] Serum or plasma creatinine m easurement (mass/volume)Ordered By: Lizzy Bragg on 09-10-2022 Creatinine [Mass/Vol] 5.24 mg/dL 0.55-1.02 [facility] Comment on above: The validity of the calculated GFR & GFRAA in patients over 70 years has not been determined. Clinical correlation is essential. Serum or plasma urea nitroge n measurement (mass/volume)Ordered By: Lizzy Bragg on 09-10-2022 Urea nitrogen [Mass/Vol] 50 mg/dL 7-18 [facility] Thin prep Papanicolaou smear with manual screeningOrdered By: Lizzy Bragg on 09-10-2022 Thin prep Papanicolaou smear with manual screening 23 U/L 15-37 [facility] Thin prep Papanicolaou smear with manual screening 8 5-15 [facility] XR CHEST 1V FRONTALon 2022 [facility] XR ELBOW GENERAL 2V AP/LAT R IGHTon 08-11-2022 [facility] ANES POSTPROC EVALon 023 ANES POSTPROC EVAL HNO ID: [id number] Author: Rashid Grace MD Service: Anesthesiology Author Type: Physician Type: Anesthesia Postprocedure Evaluation Filed: 07/24/2022 10:24 AM Note Text: POST ANESTHESIA EVALUATION NOTE : 1965 Procedure Summary Date: 07/24/22 Room / Location: ORA / [facility] OR Anesthesia Start: 809 Anesthesia Stop: 1016 Procedure: CREATION FISTULA ARTERIOVENOUS [...] July 24, 2022 TIME: 10:24 AM CSN: [id number] [facility] ANES PRE-OPon 07-24-2022 ANES PRE-OP HNO ID: [id number] Author: Rashid Grace MD Service: Anesthesiology Author Type: Physician Type: Anesthesia Preprocedure Evaluation Filed: 07/24/2022 8:08 AM Note Text: ANESTHESIOLOGY DAY OF SURGERY NOTE : 1965 Procedure Information Date/Time: 07/24/22729 Procedure: CREATION FISTULA ARTERIOVENOUS EXTREMITY UPPER (Left: Arm) - NO BELLPERSON NEEDED Location: [facility] OR04A / [facility] OR [...] disease, without long-term current use of insulin ([facility]) (+) Type 2 diabetes, controlled, with neuropathy ([facility]) GI (+) GERD (gastroesophageal reflux disease) -RENAL (+) Anemia of renal disease (+) CKD (chronic kidney disease) Stage 4, GFR 15-29 ml/min (+) ESRD (end stage renal disease) ([facility]) NEURO-PSYCH (+) Personal history of DVT (deep [...] and consent discussed: yes. Patient / Responsible Libertarian agrees to proceed: yes Patient / Surrogate [...] 07/24/22 0743 SpO2 98 % 07/24/22 0743 Facility-Administered Medications as of 07/24/2022 Medication Dose Route [...] 1 tablet by mouth once daily. - Bbkdeucd-Ul-Ccv-Fe-FA ( VITAMIN) ORAL Tab Take 1 tablet by mouth once daily. - oxyCODONE-acetaminophe n (PERCOCET) 5-325 mg tablet Take 1 tablet by mouth every 6 hours as needed for pain. - TRULICITY 1.5 mg/0.5 mL pen injector INJECT 1.5 MG UNDER THE SKIN ONCE A WEEK - flash glucose scanning reader ([employer] FESTUS 2 READER) Use to check glucose [...] record and/ (more content not included)... Normal [facility] ANTIBODY ID PATIENTon 2022 ANTIBODY IDENTIFIED Anti-K, Anti-Fya [facility] Comment on above: Order Comment: Speci men Type: BLOOD SPECIMEN Ordering Facility: [facility] Address: [address] [place], [place] [id number] Result Comment: Valerie ected result: Previously reported as Anti-K on 07/24/2022 at 1:38 PM EDT. Performed By: #### % CORDELL, TSCR, [id number] #### [facility] CLIA [id number] [address] [place] [address] BLOOD BANK COMMENTon 023 BLOOD BANK COMMENT See Comment [facility] Comment on above: Order Comment: Speci men Type: BLOOD SPECIMEN Ordering Facility: [facility] Address: [address] [place], [place] [id number] Result Comment: See physician's report under antibody interpretation from 07/14/2012 Performed By: #### % CORDELL, TSCR, [id number] #### [facility] CLIA [id number] [address] [place] [address] BRIEF OP NOTon 07-24-2022 BRIEF OP NOT HNO ID: [id number] Author: Yana Russell MD Service: Vascular Surgery Author Type: Resident Type: Brief Op Note Filed: 07/24/2022 10:21 AM Note Text: BRIEF OPERATIVE / PROCEDURE NOTE LOG ID: [id number] Surgery/Procedure Date: 07/24/2022 Incision/Procedure Start Time: 8:39 AM Incision Close/Procedure End Time: 10:04 AM Surgeon(s)/Procedurali st(s) and Workforce Management Analyst(s): Surgeon(s) and Role: * Jonathan Valenzuela MD [...] Loss: 50 mls Specimens: None Complications: None PRE-OP/PRE-PROCEDURE DIAGNOSIS: ESRD POST-OP/POST-PROCEDURE DIAGNOSIS: Same as Preop SIGNATURE: Yana Russell MD PATIENT NAME: Margareth Gonzalez DATE: July 24, 2022 TIME: 10:19 AM [facility] NURSING PROGon 07-24-2022 NURSING PROG HNO ID: [id number] Author: Lindy Acevedo RN Service: Nursing Author Type: Registered Nurse Type: Nursing Progress Note Filed: 07/24/2022 7:46 AM Note Text: PATIENT EDUCATION TOPIC: PROCEDURE / SURGERY: Pre-op Teaching: Logistics Protocols PATIENT NAME: Margareth Gonzalez PATIENT LOCATION: [facility] OR POOL/[facility] OR POOL READINESS TO LEARN COGNITIVE ABILITY: Alert and oriented MOTIVATION TO LEARN: Eager Interested FAMILY SUPPORT: None - Unavailable/disinteres wang INSTRUCTION PROVIDED TO: Patient PATIENT LEARNS BEST BY: Verbal Instruction FACTORS AFFECTING LEARNING: None PHYSICAL LIMITATIONS AFFECTING LEARNING: None LEARNING RESPONSE DIAGNOSIS: ADULT: Well Adult PATIENT/FAMILY RESPONSE: Verbalizes understanding of: PRE-OPERATIVE INSTRUCTIONS-Correct action to take to follow pre-operative instructions PRE-PROCEDURE INSTRUCTIONS-Correct action to take to follow pre-procedure instructions METHOD OF INSTRUCTION: Verbal instruction FOLLOW-UP PLAN: Complete - No need for follow-up INSTRUCTIONAL AIDS USED: NA SUPPLEMENTAL MATERIAL PROVIDED TO PATIENT: None REFERRAL (RECOMMENDATION): None Electronically Signed By: Lindy Acevedo [facility] OPERATIVE NOon 07-24-2022 OPERATIVE NO HNO ID: [id number] Author: Jonathan Valenzuela MD Service: Vascular Surgery Author Type: Physician Type: Operative Report Filed: 07/24/2022 10:19 AM Note Text: OPERATIVE/PROCEDURE REPORT LOG ID: [id number] SURGERY/PROCEDURE DATE: 07/24/2022 INCISION/PROCEDURE START TIME: 8:39 AM INCISION CLOSE/PROCEDURE END TIME: 10:04 AM SURGEON(S)/PROCEDURALI ST(S) AND [employer] FOOD MAKER(S): Surgeon(s) and Role: * Jonathan Valenzuela MD - Primary * Yana Russell MD - Resident - Assisting No Additional Staff SURGERY/PROCEDURE(S): Left forearm AVG with 4 x7 mm [...] cephalic vein, the median cubital vein and gallery manager vein were all mobilized and skeletonized. The [...] along the radial side of the forearm. PRE-OP/PRE-PROCEDURE DIAGNOSIS: CKD V POST-OP/POST-PROCEDURE DIAGNOSIS: Same as Preop ESTIMATED BLOOD LOSS: 50 mls SPECIMENS: None IMPLANTABLE DEVICES: Implant Name Type Inv. Item Serial No. Collections Clerk Lot No. LRB No. Used Action GRAFT 4-7MM STANDARD ARMY MANAGER GORE-SPENCER 45CM VASCULAR STRETCH STERILE - [id number] Graft GRAFT 4-7MM STANDARD ARMY MANAGER GORE-SPENCER 45CM VASCULAR STRETCH STERILE [id number] Left 1 Implanted DRAINS: None COMPLICATIONS: None CLOSURE TECHNIQUE: Primary PARTICIPATION IN SURGERY/PROCEDURE: I/primary surgeon/proceduralist performed the procedure with assistance. SIGNATURE: Jonathan Valenzuela MD PATIENT NAME: Margareth Gonzalez DATE: July 24, 2022 TIME: 10:02 AM [facility] TYPE + SCREENon 07-24-2022 ABO A Normal [facility] Comment on above: Order Comment: Speci men Type: BLOOD SPECIMEN Ordering Facility: [facility] Address: [address] [place] [address] Performed By: #### % CORDELL, TSCR, [id number] #### [facility] CLIA [id number] [place] [address] [place] HISTORICAL AB SCR STATUS Positive Abnormal [facility] Comment on above: Order Comment: Speci men Type: BLOOD SPECIMEN Ordering Facility: [facility] Address: [address] [place] [address] Performed By: #### % CORDELL, TSCR, [id number] #### [facility] CLIA [id number] Rh Nom (Bld) Positive Normal [facility] Comment on above: Order Comment: Speci men Type: BLOOD SPECIMEN Ordering Facility: [facility] Address: [address] [place] [address] Performed By: #### % CORDELL, TSCR, [id number] #### [facility] CLIA [id number] [place] [address] TYPE AND SCREEN EXPIRATION 07/27/2022 23:59 Normal [facility] Comment on above: Order Comment: Speci men Type: BLOOD SPECIMEN Ordering Facility: [facility] Address: [address] [place] [place] [address] Performed By: #### % CORDELL, TSCR, [id number] #### [facility] CLIA [id number] [place] [address] URINE CULTUREon 07-02-2022 Bacteria identified Cx Nom (U) Mixed microbiota: [facility] Bacteria identified Cx Nom (U) 10,000 -<50,000 CFU/ml Enterococcus faecalis Abnormal [facility] Bacteria identified Cx Nom (U) Negative Abnormal [facility] Comprehensive metabolic 2000 panelon 07-01-2022 Albumin [Mass/Vol] 3.6 g/dL Low 3.9 - 4.9 g/dL [facility] ALP [Catalytic activity/Vol] 101 U/L 34 - 123 U/L [facility] ALT [Catalytic activity/Vol] 32 U/L 7 - 38 U/L [facility] Anion gap [Moles/Vol] 10 mmol/L 9 - 18 mmol/L [facility] AST [Catalytic activity/Vol] 34 U/L 13 - 35 U/L [facility] Bilirubin [Mass/Vol] 0.2 mg/dL 0.2 - 1 .3 mg/dL [facility] Calcium [Mass/Vol] 8.5 mg/dL 8.5 - 10. 2 mg/dL [facility] Chloride [Moles/Vol] 100 mmol/L 97 - 10 5 mmol/L [facility] CO2 [Moles/Vol] 24 mmol/L 22 - 30 mmol/L [facility] Creatinine [Mass/Vol] 4.37 mg/dL High 0.58 - 0.96 mg/dL [facility] Estimated Glomerular Filtration Rate 11 mL/min/1.73m Low >=60 mL/min/1.73 m [facility] Glucose [Mass/Vol] 361 mg/dL High 74 - 99 mg/dL [facility] Potassium [Moles/Vol] 5.9 mmol/L High 3.7 - 5.1 mmol/L [facility] Protein [Mass/Vol] 6.1 g/dL Low 6.3 - 8.0 g/dL [facility] Sodium [Moles/Vol] 134 mmol/L Low 136 - 144 mmol/L [facility] Urea nitrogen [Mass/Vol] 47 mg/dL High 7 - 21 mg/dL [facility] CBC W Auto Differential pane l (Bld)on 06-30-2022 Basophils (Bld) [#/Vol] 0.04 10*3/uL <0.11 k/uL [facility] Basophils/100 WBC (Bld) 0.6 % [facility] Differential cell count method Nom (Bld) Auto [facility] Eosinophils (Bld) [#/Vol] 0.21 10*3/uL <0.46 k/uL [facility] Eosinophils/100 WBC (Bld) 3.4 % [facility] Erythrocyte distribution width (RBC) [Ratio] 12.1 % 11.5 - 15.0 % [facility] Hematocrit (Bld) [Volume fraction] 30.7 % Low 36.0 - 46.0 % [facility] Hemoglobin (Bld) [Mass/Vol] 10.0 g/dL Low 11.5 - 15.5 g/dL [facility] Immature granulocytes (Bld) [#/Vol] 0.03 10*3/uL <0.10 k/uL [facility] Immature granulocytes/100 WBC (Bld) 0.5 % [facility] Lymphocytes (Bld) [#/Vol] 1.56 10*3/uL 1.00 - 4.00 k/uL [facility] Lymphocytes/100 WBC (Bld) 25.1 % [facility] MCH (RBC) [Entitic mass] 31.6 pg 26.0 - 34.0 pg [facility] MCHC (RBC) [Mass/Vol] 32.6 g/dL 30.5 - 36.0 g/dL [facility] MCV (RBC) [Entitic vol] 97.2 fL 80.0 - 100.0 fL [facility] Monocytes (Bld) [#/Vol] 0.39 10*3/uL <0.87 k/uL [facility] Monocytes/100 WBC (Bld) 6.3 % C [facility] Neutrophils (Bld) [#/Vol] 3.99 10*3/uL 1.45 - 7.50 k/uL [facility] Neutrophils/100 WBC (Bld) 64.1 % [facility] Nucleated RBC (Bld) [#/Vol] <0.01 k/uL [facility] Nucleated RBC/100 WBC (Bld) [Ratio] 0.0 /100 WBC [facility] Platelet mean volume (Bld) [Entitic vol] 9.0 fL 9.0 - 12.7 fL [facility] Platelets (Bld) [#/Vol] 184 10*3/uL 150 - 400 k/uL [facility] RBC (Bld) [#/Vol] 3.16 10*6/uL Low 3.90 - 5.2 0 m/uL [facility] WBC (Bld) [#/Vol] 6.22 10*3/uL 3.70 - 11.00 k/uL [facility] URINE CULTUREon 06-30-2022 Bacteria identified Cx Nom (U) Invalid Interpretation Code [facility] UA DIP, URINE (POC)on 2022 BILIRUBIN UA (POCT) Negative Negative [facility] CLARITY UA (POCT) Cloudy [facility] COLOR UA (POCT) Yellow [facility] GLUCOSE UA (POCT) 250 mg/dL Abnormal Negative mg/dL [facility] HEMOGLOBIN/BLOOD UA (POCT) Moderate Abnormal Negative [facility] KETONE UA (POCT) Negative Negative mg/dL [facility] LEUKOCYTES UA (POCT) Moderate Abnormal Negative [facility] NITRITE UA (POCT) Negative Negative [facility] PH UA (POCT) 5.5 4.5 - 8.0 [facility] Protein Ql (U) >=300 Abnormal Negative mg/dL [facility] SPECIFIC GRAVITY UA (POCT) 1.020 1.005 - 1.030 [facility] UROBILINOGEN UA (POCT) 0.2 E.U./dL Rosa l E.U./dL [facility] MARYLU SCREENINGon 04-10-2022 [facility] KN[facility] GENERAL 4V AP BOTH/P A BOTH/LAT/MERC LEFTon 04-10-2022 [facility] UA DIP, URINE (POC)on 2022 BILIRUBIN UA (POCT) Negative Negative [facility] CLARITY UA (POCT) Cloudy [facility] COLOR UA (POCT) Yellow [facility] GLUCOSE UA (POCT) 100 mg/dL Abnormal Negative mg/dL [facility] HEMOGLOBIN/BLOOD UA (POCT) Moderate Abnormal Negative [facility] KETONE UA (POCT) Negative Negative mg/dL [facility] LEUKOCYTES UA (POCT) Large Abnormal Negative [facility] NITRITE UA (POCT) Positive Abnormal Negative [facility] PH UA (POCT) 7.0 4.5 - 8.0 [facility] Protein Ql (U) 100 mg/dL Abnormal Negative mg/dL [facility] SPECIFIC GRAVITY UA (POCT) 1.020 1.005 - 1.030 [facility] UROBILINOGEN UA (POCT) 0.2 E.U./dL Rosa l E.U./dL [facility] Influenza virus A and B RNA and SARS-CoV-2 (COVID-19) N gene panel CAR+probe (Resp)on 03-05-2022 FLUAV RNA CAR+probe Ql (Unsp spec) Negative Negative for Influenza A by RT-PCR [facility] FLUBV RNA CAR+probe Ql (Unsp spec) Negative Negative for Influenza B by RT-PCR [facility] SARS-CoV-2 (COVID-19) RNA CAR+probe Ql (Resp) SARS-CoV-2 (Agent of COVID-19) Not Detected by RT-PCR or equivalent method. Not Detected [facility] XR FOOT GENERAL 3V AP/LAT/OB L LEFTon 02-18-2022 [facility] XR Foot - left AP and Latera l and obliqueon 02-18-2022 IMPRESSION: 1. Mild degenerative changes in dorsal calcaneal enthesophyte. 2. Atherosclerotic disease. Seafood Clerk: [facility] Trans[facility] Date/Time: Feb 18 2022 9:22A Dictated by : VIDA ROGERS MD This examination was interpreted and the report reviewed and electronically signed by: VIDA ROGERS MD on Feb 18 2022 9:24AM [facility] DIVISION OF RADIOLOGY * * *Final Report* [...] of the vasculature. DIVISION OF RADIOLOGY Provider, [facility] - 02/18/2022 * * *Final Report* * [...] in dorsal calcaneal enthesophyte. 2. Atherosclerotic disease. Seafood Clerk: [facility] Transcribe Date/Time: Feb 18 2022 9:22A Dictated by : VIDA ROGERS MD This examination was interpreted and the report reviewed and electronically signed by: VIDA ROGERS MD on Feb 18 2022 9:24AM [facility] Radiology Study observation (narrative) [facility] XR Foot - left AP and Latera l and obliqueOrdered By: Ccf Provider on 02-18-[address] [facility] [address] CHEST WO IVCONon 08-16-19 [facility] NM CARDIAC PERF STRESS/PHARM on 08-15-2021 Radiology Result ACTIONABLE Abnormal [facility] CBC W Auto Differential pane l (Bld)on 07-31-2021 Abs Immature Gran <0.03 <0.10 k/uL [facility] Basophils (Bld) [#/Vol] 0.05 10*3/uL <0.11 k/uL [facility] Basophils/100 WBC (Bld) 1.0 % C [facility] Differential cell count method Nom (Bld) Auto [facility] Eosinophils (Bld) [#/Vol] 0.23 10*3/uL <0.46 k/uL [facility] Eosinophils/100 WBC (Bld) 4.6 % [facility] Erythrocyte distribution width (RBC) [Ratio] 12.8 % 11.5 - 15.0 % [facility] Hematocrit (Bld) [Volume fraction] 30.8 % Low 36.0 - 46.0 % [facility] Hemoglobin (Bld) [Mass/Vol] 9.3 g/dL Low 11.5 - 15.5 g/dL [facility] Immature Gran % 0.2 % [facility] Lymphocytes (Bld) [#/Vol] 1.83 10*3/uL 1.00 - 4.00 k/uL [facility] Lymphocytes/100 WBC (Bld) 36.5 % [facility] MCH (RBC) [Entitic mass] 29.2 pg 26.0 - 34.0 pg [facility] MCHC (RBC) [Mass/Vol] 30.2 g/dL Low 30.5 - 36.0 g/dL [facility] MCV (RBC) [Entitic vol] 96.9 fL 80.0 - 100.0 fL [facility] Monocytes (Bld) [#/Vol] 0.33 10*3/uL <0.87 k/uL [facility] Monocytes/100 WBC (Bld) 6.6 % C [facility] Neutrophils (Bld) [#/Vol] 2.56 10*3/uL 1.45 - 7.50 k/uL [facility] Neutrophils/100 WBC (Bld) 51.1 % [facility] Nucleated RBC (Bld) [#/Vol] 10*3/uL <0.01 k/uL [facility] Nucleated RBC/100 WBC (Bld) [Ratio] 0.0 /100 WBC [facility] Platelet mean volume (Bld) [Entitic vol] 9.7 fL 9.0 - 12.7 fL [facility] Platelets (Bld) [#/Vol] 197 10*3/uL 150 - 400 k/uL [facility] RBC (Bld) [#/Vol] 3.18 10*6/uL Low 3.90 - 5.2 0 m/uL [facility] WBC (Bld) [#/Vol] 5.01 10*3/uL 3.70 - 11.00 k/uL [facility] PROTEIN CREATININE RATIOon 0 07-31-2021 Protein/Creatinine (U) [Mass ratio] 0.6 mg/g High <0.2 [facility] PTH INTACT BLDon 07-31-2021 Parathyrin.intact [Mass/Vol] 473 pg/mL High 15 - 65 pg/mL [facility] Protein/Creatinine (U) [Mass ratio]on 07-31-2021 Creatinine (U) [Mass/Vol] 65.6 mg/dL 20.0 - 300.0 mg/dL [facility] Protein (U) [Mass/Vol] 39 mg/dL High 0 - 2 0 mg/dL [facility] Renal function 2000 panelon 07-31-2021 Albumin [Mass/Vol] 3.7 g/dL Low 3.9 - 4.9 g/dL [facility] Anion gap [Moles/Vol] 14 mmol/L 9 - 18 mmol/L [facility] Calcium [Mass/Vol] 8.5 mg/dL 8.5 - 10. 2 mg/dL [facility] Chloride [Moles/Vol] 104 mmol/L 97 - 10 5 mmol/L [facility] CO2 [Moles/Vol] 18 mmol/L Low 22 - 30 mmol/L [facility] Creatinine [Mass/Vol] 3.75 mg/dL High 0.58 - 0.96 mg/dL [facility] Estimated Glomerular Filtration Rate 14 mL/min/1.73m Low >=60 mL/min/1.73 m [facility] Glucose [Mass/Vol] 172 mg/dL High 74 - 99 mg/dL [facility] Phosphate [Mass/Vol] 5.8 mg/dL High 2.7 - 4 .8 mg/dL [facility] Potassium [Moles/Vol] 4.8 mmol/L 3.7 - 5.1 mmol/L [facility] Sodium [Moles/Vol] 136 mmol/L 136 - 144 mmol/L [facility] Urea nitrogen [Mass/Vol] 38 mg/dL High 7 - 21 mg/dL [facility] VITAMIN D 25 HYDROXYon 07-31 25-hydroxyvitamin D3 [Mass/Vol] 51.0 ng/mL 31.0 - 80.0 ng/mL [facility] Absolute lymphocyte counton 07-29-2021 Lymphocytes Auto (Unsp spec) [#/Vol] 1.72 10*3/uL 0.83-4.51 [facility] Work Phone: Basophil percentageon 2021 Basophils/100 WBC (Bld) 0.7 % 0-1 [facility] Work Phone: Bilirubin [Mass/Vol] 0.30 mg/dL 0.20-1.00 [facility] Work Phone: Comment on above: For patients on eltr ombopag therapy, use of Dimension [place] TBIL is not recommended. Chloride [Moles/Vol] 111 mmol/L 98-107 [facility] Work Phone: Eosinophils/100 WBC (Bld) 3.7 % 0-5 [facility] Work Phone: Glucose [Mass/Vol] 196 mg/dL 74-106 [facility] Work Phone: Comment on above: Fasting Glucose resu lt greater than or equal to 126 mg/dL suggests DIABETES MELLITUS per A.D.A. criteria. Neutrophils (Bld) [#/Vol] 3.2 10*3/uL 2.0-7.7 [facility] Work Phone: Neutrophils/100 WBC (Bld) 56.8 % 47-70 [facility] Work Phone: Potassium [Moles/Vol] 4.8 mmol/L 3.5-5.1 [facility] Work Phone: Protein [Mass/Vol] 6.1 g/dL 6.4-8.2 [facility] Work Phone: Sodium [Moles/Vol] 140 mmol/L 136-145 [facility] Work Phone: [phone] WBC (Bld) [#/Vol] 5.7 10*3/uL 4.4-11.0 [facility] Work Phone: Blood erythrocytes count (nu mber/volume)on 07-29-2021 RBC (Bld) [#/Vol] 3.17 10*6/uL 4.2-5.[address] [facility] Work Phone: Blood hemoglobin measurement (mass/volume)on 07-29-2021 Hemoglobin (Bld) [Mass/Vol] 9.8 g/dL 12.0-15.0 [facility] Work Phone: Blood lymphocytes/100 leukoc yteson 07-29-2021 Lymphocytes/100 WBC (Bld) 30.3 % 19-41 [facility] Work Phone: [phone] Blood monocytes/100 leukocyt eson 07-29-2021 Monocytes/100 WBC (Bld) 8.1 % 0-10 [facility] Work Phone: [phone] Blood platelet mean volumeon 07-29-2021 Platelet mean volume (Bld) [Entitic vol] 9.4 fL 6.2-12.0 [facility] Work Phone: Determination of erythrocyte mean corpuscular volume (MCV)on 07-29-2021 MCV (RBC) [Entitic vol] 97.5 fL 81-99 [facility] Work Phone: Hematocrit Auto (Bld) [Volum e fraction]on 07-29-2021 Hematocrit (Bld) [Volume fraction] 30.9 % 37-47 [facility] Work Phone: Laboratory - Chemistry and C hemistry - challengeon 07-29-2021 ALP [Catalytic activity/Vol] 85 U/L 45-117 [facility] Work Phone: ALT [Catalytic activity/Vol] 30 U/L 13-56 [facility] Work Phone: [phone] CO2 [Moles/Vol] 21.0 mmol/L 21.0-32.0 [facility] Work Phone: [phone] Globulin (S) [Mass/Vol] 3.2 g/dL 2.2-4.2 [facility] Work Phone: [phone] Magnesium [Mass/Vol] 1.7 mg/dL 1.6-2.6 [facility] Work Phone: [phone] Urea nitrogen/Creatinine [Mass ratio] 9.9 mg/mg 10-20 [facility] Work Phone: [phone] Laboratory - Hematology and Cell countson 07-29-2021 Erythrocyte distribution width (RBC) [Entitic vol] 45.4 fL 35.1-43.9 [facility] Work Phone: [phone] Erythrocyte distribution width (RBC) [Ratio] 12.8 % 11.6-14.6 [facility] Work Phone: [phone] Immature granulocytes/100 WBC (Bld) 0.400 % 0.0-0.9 [facility] Work Phone: [phone] Comment on above: IG% - Immature Granu locytes (promyelocytes, myelocytes and metamyelocytes) > 1% indicates that a LEFT SHIFT is Present. MCH (RBC) [Entitic mass] 30.9 pg 27.0-32.0 [facility] Work Phone: [phone] Nucleated RBC/100 WBC (Bld) [Ratio] 0 % 0-5 [facility] Work Phone: [phone] MCHC Auto (RBC) [Mass/Vol]on 07-29-2021 MCHC (RBC) [Mass/Vol] 31.7 g/dL 32-36 [facility] Work Phone: [phone] Panel Informationon 07-29 Estimated Creatinine Clearance Calc 15.72 ml/min [facility] Work Phone: [phone] Estimated GFR (MDRD) Amer 15 mL/min >60 [facility] Work Phone: [phone] Comment on above: GFR Calc Estimated GFR (MDRD) Non-Af Amer 12 mL/min >60 [facility] Work Phone: Comment on above: Non- GFR Calc Platelets bldon 07-29-2021 Platelets (Bld) [#/Vol] 188 10*3/uL 150-450 [facility] Work Phone: [phone] Serum or plasma albumin joya urement (mass/volume)on 07-29-2021 Albumin [Mass/Vol] 2.9 g/dL 3.2-5.0 [facility] Work Phone: [phone] Serum or plasma albumin/glob ulin mass ratioon 07-29-2021 Albumin/Globulin [Mass ratio] 0.9 {ratio} 0.9-2.4 [facility] Work Phone: [phone] Serum or plasma calcium joya urement (mass/volume)on 07-29-2021 Calcium [Mass/Vol] 8.0 mg/dL 8.5-10.1 [facility] Work Phone: [phone] Serum or plasma creatinine m easurement (mass/volume)on 07-29-2021 Creatinine [Mass/Vol] 4.03 mg/dL 0.55-1.02 [facility] Work Phone: Comment on above: The validity of the calculated GFR & GFRAA in patients over 70 years has not been determined. Clinical correlation is essential. Serum or plasma urea nitroge n measurement (mass/volume)on 07-29-2021 Urea nitrogen [Mass/Vol] 40 mg/dL 7-18 [facility] Work Phone: [phone] Thin prep Papanicolaou smear with manual screeningon 07-29-2021 Thin prep Papanicolaou smear with manual screening 21 U/L 15-37 [facility] Work Phone: Thin prep Papanicolaou smear with manual screening 8 5-15 [facility] Work Phone: [phone] CT ABD/PEL WO IVCONon 2021 [facility] No Panel Informationon 10-31 IMPRESSION: Spondylosis of the cervical spine. No right-sided rib fractures identified. No acute cardiopulmonary disease identified. Seafood Clerk: SHAMAR Transcribe Date/Time: Oct 31 2020 4:31P Dictated by : PURVI DIAZ MD This examination was interpreted and the report reviewed and electronically signed by: PURVI DIAZ MD on Oct 31 2020 4:33PM [facility] DIVISION OF RADIOLOGY Radiology Study observation (narrative) [facility] No Panel InformationOrdered By: [facility] Provider on 10-31-2020 [facility] XR Cervical spine AP and [...] many years with no known injury (accession [id number]), Patient staes right lateral rib pain for a couple days with no known injury (accession [id number]) TECHNIQUE: Images: XR CERVICAL 4V AP/LAT/OBL, XR [...] fractures are seen. DIVISION OF RADIOLOGY Provider, [facility] - 10/31/2020 * * *Final [...] many years with no known injury (accession [id number]), Patient staes right lateral rib pain for a couple days with no known injury (accession [id number]) TECHNIQUE: Images: XR CERVICAL 4V AP/LAT/OBL, XR [...] fractures identified. No acute cardiopulmonary disease identified. Seafood Clerk: [facility] Transcribe Date/Time: Oct 31 2020 4:31P Dictated by : PURVI DIAZ MD This examination was interpreted and the report reviewed and electronically signed by: PURVI DIAZ MD on Oct 31 2020 4:33PM [facility] XR Ribs - right Views and [facility] PAon 10-31-2020 * * *Final Report* [...] many years with no known injury (accession [id number]), Patient staes right lateral rib pain for a couple days with no known injury (accession [id number]) TECHNIQUE: Images: XR CERVICAL 4V AP/LAT/OBL, XR [...] fractures are seen. DIVISION OF RADIOLOGY Provider, [facility] 10/31/2020 * * *Final Report* * * [...] many years with no known injury (accession [id number]), Patient staes right lateral rib pain for a couple days with no known injury (accession [id number]) TECHNIQUE: Images: XR CERVICAL 4V AP/LAT/OBL, XR [...] fractures identified. No acute cardiopulmonary disease identified. Seafood Clerk: SHAMAR Transcribe Date/Time: Oct 31 2020 4:31P Dictated by : PURVI DIAZ MD This examination was interpreted and the report reviewed and electronically signed by: PURVI DIAZ MD on Oct 31 2020 4:33PM [facility] CT HEAD OR BRAIN W/O CONTRAS Ton [...] Normal noncontrast head CT. Interpreted By: Marco Poolereliminary Report By: Marco Poole MDElectronically Signed By: Marco Poole MD Dictated Date: 07/23/2017 12:33:50 AM Prelim Date: 07/23/2017 12:33:50 AM Sign Date: 07/23/2017 12:34:39 AM Normal [facility] [place] MAXILLOFACIAL W/O CONTRAS Ton 07-23-2017 CT [...] AM Sign Date: 07/23/2017 12:42:04 AM Normal [facility] [place] SPINE CERVICAL W/O CONTRA STon 07-23-2017 [...] fracture or traumatic malalignment. Interpreted By: Marco Poolereliminary Report By: Marco Poole MDElectronically Signed By: Marco Poole MD Dictated Date: 07/23/2017 12:42:27 AM Prelim Date: 07/23/2017 12:42:27 AM Sign Date: 07/23/2017 12:43:50 AM Normal [facility] on 07-23-2017 [facility] Normal [facility] Pat Eduon 07-23-2017 Pat Edu Normal [facility] [place] Patient Summary Documentson 07-23-2017 Patient Summary Documents Normal [facility] [place] KNEE THREE VIEWS LEFTon 0 07-23-2017 [...] AM Sign Date: 07/23/2017 12:33:28 AM Normal [facility] KNEE THREE VIEWS RIGHTon 07-23-2017 XR [...] arthritis. Moderate-sized joint effusion. Interpreted By: Marco Poolereliminary Report By: Marco Poole MDElectronically Signed By: Marco Poole MD Dictated Date: 07/23/2017 12:30:42 AM Prelim Date: 07/23/2017 12:30:42 AM Sign Date: 07/23/2017 12:32:09 AM Normal [facility] [place] Vital Signs Date Time Vital Sign Value Performing Clinician Facility 10-26-2024 10:10-0400 SaO2% (BldA) [Mass fraction] 90 % Dr. Ignacio Cheatham MD Work Phone: [facility] 10-26-2024 09:00-0400 Body temperature 98 [degF] Dr. Ignacio Cheatham MD Work Phone: [facility] 10-26-2024 09:00-0400 Diastolic blood pressure 63 mm[Hg] Dr. Ignacio Cheatham MD Work Phone: [facility] 10-26-2024 09:00-0400 Heart rate 86 /min Dr. Ignacio Cheatham MD Work Phone: [facility] 10-26-2024 09:00-0400 Respiratory rate 16 /min Dr. Ignacio Cheatham MD Work Phone: [facility] 10-26-2024 09:00-0400 Systolic blood pressure 131 mm[Hg] Dr. Ignacio Cheatham MD Work Phone: [facility] 10-26-2024 08:13-0400 Inhaled oxygen flow rate 2 L/min Dr. Ignacio Cheatham MD Work Phone: [facility] 10-26-2024 05:00-0400 Body mass index (BMI) [Ratio] 27.8 kg/m2 Dr. Ignacio Cheatham MD Work Phone: 4(970)996-114255 [place] [address] 10-26-2024 05:00-0400 Body weight [address] Ignacio Cheatham MD Work Phone: 9(553)418-974255 [place] [address] 10-25-2024 16:12-0400 Body height 172.[address] Ignacio Cheatham MD Work Phone: 7(097)382-532255 [place] [address] 10-24-2024 19:00-0400 SaO2% (BldA) [Mass fraction] 94 % Dr. Ignacio Cheatham MD Work Phone: 8(008)965-086055 [place] [address] 10-24-2024 18:45-0400 Diastolic blood pressure 75 mm[Hg] Dr. Ignacio Cheatham MD Work Phone: 6(487)829-038055 [place] [address] 10-24-2024 18:45-0400 Systolic blood pressure 166 mm[Hg] Dr. Ignacio Cheatham MD Work Phone: 5(782)028-668455 [place] [address] 10-24-2024 18:12-0400 Body temperature 98.8 [degF] Dr. Ignacio Cheatham MD Work Phone: 3(483)662-136355 [place] [address] 10-24-2024 18:12-0400 Heart rate 90 /min Dr. Ignacio Cheatham MD Work Phone: 2(906)149-476955 [place] [address] 10-24-2024 18:12-0400 Respiratory rate 16 /min Dr. Ignacio Cheatham MD Work Phone: 1(630)086-082255 [place] [address] 10-24-2024 18:00-0400 Inhaled oxygen flow rate 2 L/min Dr. Ignacio Cheatham MD Work Phone: 1(638)270-531255 [place] [address] 10-24-2024 13:40-0400 Body height 172.[address] Ignacio Cheatham MD Work Phone: 4(254)601-145355 [place] [address] 10-24-2024 13:40-0400 Body mass index (BMI) [Ratio] 30.2 kg/m2 Dr. Ignacio Cheatham MD Work Phone: 1(721)873-641955 [place] [address] 10-24-2024 13:40-0400 Body weight 90.[address] Ignacio Cheatham MD Work Phone: [facility] 10-20-2024 14:39-0400 Body mass index (BMI) [Ratio] 27.29 kg/m2 Sury Suppan PLISSE MACHINE OPERATOR HELPER.SALOONKEEPER Work Phone: [facility] 10-20-2024 14:39-0400 Body weight 81.4 kg Sury Suppan PLISSE MACHINE OPERATOR HELPER.SALOONKEEPER Work Phone: [facility] 10-20-2024 14:39-0400 Diastolic blood pressure 66 mm[Hg] Sury Suppan PLISSE MACHINE OPERATOR HELPER.SALOONKEEPER Work Phone: [facility] 10-20-2024 14:39-0400 Heart rate 100 /min Sury Suppan PLISSE MACHINE OPERATOR HELPER.SALOONKEEPER Work Phone: [facility] 10-20-2024 14:39-0400 SaO2% (BldA) [Mass fraction] 82 % Sury Suppan PLISSE MACHINE OPERATOR HELPER.SALOONKEEPER Work Phone: [facility] 10-20-2024 14:39-0400 Systolic blood pressure 128 mm[Hg] Sury Suppan PLISSE MACHINE OPERATOR HELPER.SALOONKEEPER Work Phone: [facility] 10-13-2024 15:15-0400 Body temperature 97.3 [degF] Dr. Ignacio Cheatham MD Work Phone: 2(409)044-790889 [place] [address] 10-13-2024 15:15-0400 Diastolic blood pressure 65 mm[Hg] Dr. Ignacio Cheatham MD Work Phone: [facility] 10-13-2024 15:15-0400 Heart rate 97 /min Dr. Ignacio Cheatham MD Work Phone: [facility] 10-13-2024 15:15-0400 Respiratory rate 18 /min Dr. Ignacio Cheatham MD Work Phone: [facility] 10-13-2024 15:15-0400 SaO2% (BldA) [Mass fraction] 98 % Dr. Ignacio Cheatham MD Work Phone: [facility] 10-13-2024 15:15-0400 Systolic blood pressure 143 mm[Hg] Dr. Ignacio Cheatham MD Work Phone: 7(555)867-703455 [place] [address] 10-13-2024 12:31-0400 Body mass index (BMI) [Ratio] 26.7 kg/m2 Dr. Ignacio Cheatham MD Work Phone: 0(755)891-569555 [place] [address] 10-13-2024 12:31-0400 Body weight 79.[address] Ignacio Cheatham MD Work Phone: 0(006)096-542655 [place] [address] 10-12-2024 15:20-0400 Inhaled oxygen flow rate 2 L/min Dr. Ignacio Cheatham MD Work Phone: 5(520)876-622855 [place] [address] 10-11-2024 16:09-0400 Body height 172.[address] Ignacio Cheatham MD Work Phone: 0(565)163-357555 [place] [address] 10-11-2024 12:15-0400 Body mass index (BMI) [Ratio] 25.7 kg/m2 Dr. Ignacio Cheatham MD Work Phone: 2(261)016-799655 [place] [address] 10-11-2024 12:15-0400 Body temperature 97.2 [degF] Dr. Ignacio Cheatham MD Work Phone: 3(587)903-873455 [place] [address] 10-11-2024 12:15-0400 Body weight 76.[address] Ignacio Cheatham MD Work Phone: 8(827)949-445355 [place] [address] 10-11-2024 12:15-0400 Diastolic blood pressure 60 mm[Hg] Dr. Ignacio Cheatham MD Work Phone: 9(070)510-335655 [place] [address] 10-11-2024 12:15-0400 Heart rate 82 /min Dr. Ignacio Cheatham MD Work Phone: 5(066)540-903655 [place] [address] 10-11-2024 12:15-0400 Respiratory rate 16 /min Dr. Ignacio Cheatham MD Work Phone: 2(170)998-767455 [place] [address] 10-11-2024 12:15-0400 SaO2% (BldA) [Mass fraction] 94 % Dr. Ignacio Cheatham MD Work Phone: 4(406)077-855155 [place] [address] 10-11-2024 12:15-0400 Systolic blood pressure 100 mm[Hg] Dr. Ignacio Cheatham MD Work Phone: 8(903)338-710355 [place] [address] 10-11-2024 11:30-0400 Inhaled oxygen flow rate 2 L/min Dr. Ignacio Cheatham MD Work Phone: 6(708)430-294155 [place] [address] 10-10-2024 21:58-0400 Body temperature 98 [degF] Dr. Ignacio Cheatham MD Work Phone: 1(886)813-703055 [place] [address] 10-10-2024 21:58-0400 Diastolic blood pressure 75 mm[Hg] Dr. Ignacio Cheatham MD Work Phone: 4(392)573-241355 [place] [address] 10-10-2024 21:58-0400 Heart rate 105 /min Dr. Ignacio Cheatham MD Work Phone: 4(348)423-086355 [place] [address] 10-10-2024 21:58-0400 Respiratory rate 18 /min Dr. Ignacio Cheatham MD Work Phone: 9(623)658-860955 [place] [address] 10-10-2024 21:58-0400 SaO2% (BldA) [Mass fraction] 95 % Dr. Ignacio Cheatham MD Work Phone: 8(803)227-960355 [place] [address] 10-10-2024 21:58-0400 Systolic blood pressure 168 mm[Hg] Dr. Ignacio Cheatham MD Work Phone: 4(508)800-728655 [place] [address] 10-10-2024 21:50-0400 Body height 172.[address] Ignacio Cheatham MD Work Phone: 8(944)569-275955 [place] [address] 10-10-2024 17:06-0400 Inhaled oxygen flow rate 2 L/min Dr. Ignacio Cheatham MD Work Phone: 5(546)849-890055 [place] [address] 10-10-2024 16:03-0400 Body height 172.[address] Ignacio Cheatham MD Work Phone: 1(987)446-567555 [place] [address] 10-10-2024 16:03-0400 Body mass index (BMI) [Ratio] 28.6 kg/m2 Dr. Ignacio Cheatham MD Work Phone: 9(400)490-279955 [place] [address] 10-10-2024 16:03-0400 Body weight 85.[address] Ignacio Cheatham MD Work Phone: 5(890)763-769189 [place] [address] 09-12-2024 13:20-0400 Diastolic blood pressure 60 mm[Hg] Liz Ferreira MD Work Phone: [facility] 09-12-2024 13:20-0400 Heart rate 77 /min Liz Ferreira MD Work Phone: 6(764)353-112329 [place] [address] 09-12-2024 13:20-0400 Respiratory rate 18 /min Liz Ferreira MD Work Phone: 4(571)463-963529 [place] [address] 09-12-2024 13:20-0400 SaO2% (BldA) [Mass fraction] 100 % Liz Ferreira MD Work Phone: 5(057)155-621329 [place] [address] 09-12-2024 13:20-0400 Systolic blood pressure 102 mm[Hg] Liz Ferreira MD Work Phone: 1(782)592-954029 [place] [address] 09-06-2024 23:25-0400 Body temperature 97.8 [degF] Dr. Ignacio Cheatham MD Work Phone: 1(568)001-835155 [place] [address] 09-06-2024 23:25-0400 Diastolic blood pressure 80 mm[Hg] Dr. Ignacio Cheatham MD Work Phone: 6(987)046-431855 [place] [address] 09-06-2024 23:25-0400 Heart rate 102 /min Dr. Ignacio Cheatham MD Work Phone: 6(528)583-167955 [place] [address] 09-06-2024 23:25-0400 Respiratory rate 16 /min Dr. Ignacio Cheatham MD Work Phone: 2(982)861-344155 [place] [address] 09-06-2024 23:25-0400 SaO2% (BldA) [Mass fraction] 95 % Dr. Ignacio Cheatham MD Work Phone: 2(146)072-492055 [place] [address] 09-06-2024 23:25-0400 Systolic blood pressure 162 mm[Hg] Dr. Ignacio Cheatham MD Work Phone: 5(188)412-727155 [place] [address] 09-06-2024 18:39-0400 Body height 172.[address] Ignacio Cheatham MD Work Phone: [facility] 09-06-2024 18:39-0400 Body mass index (BMI) [Ratio] 29.2 kg/m2 Dr. Ignacio Cheatham MD Work Phone: [facility] 09-06-2024 18:39-0400 Body weight 87.[address] Ignacio Cheatham MD Work Phone: [facility] 08-10-2024 13:25-0400 Body mass index (BMI) [Ratio] 28.49 kg/m2 Hever Praisler-Wood PLISSE MACHINE OPERATOR HELPER.SALOONKEEPER Work Phone: [facility] 08-10-2024 13:25-0400 Body temperature 98.01 [degF] Hever Praisler-Wood PLISSE MACHINE OPERATOR HELPER.SALOONKEEPER Work Phone: [facility] 08-10-2024 13:25-0400 Body weight 85 kg Hever Praisler-Wood PLISSE MACHINE OPERATOR HELPER.SALOONKEEPER Work Phone: [facility] 08-10-2024 13:25-0400 Diastolic blood pressure 80 mm[Hg] Hever Praisler-Wood PLISSE MACHINE OPERATOR HELPER.SALOONKEEPER Work Phone: [facility] 08-10-2024 13:25-0400 Heart rate 100 /min Hever Praisler-Wood PLISSE MACHINE OPERATOR HELPER.SALOONKEEPER Work Phone: [facility] 08-10-2024 13:25-0400 Respiratory rate 20 /min Hever Praisler-Wood PLISSE MACHINE OPERATOR HELPER.SALOONKEEPER Work Phone: [facility] 08-10-2024 13:25-0400 SaO2% (BldA) [Mass fraction] 97 % Hever Praisler-Wood PLISSE MACHINE OPERATOR HELPER.SALOONKEEPER Work Phone: [facility] 08-10-2024 13:25-0400 Systolic blood pressure 158 mm[Hg] Hever Praisler-Wood PLISSE MACHINE OPERATOR HELPER.SALOONKEEPER Work Phone: [facility] 07-06-2024 13:32-0400 Body mass index (BMI) [Ratio] 27.99 kg/m2 Trinidad Cioce PLISSE MACHINE OPERATOR HELPER.SALOONKEEPER Work Phone: [facility] 07-06-2024 13:32-0400 Body temperature 98.29 [degF] Trinidad Cioce PLISSE MACHINE OPERATOR HELPER.SALOONKEEPER Work Phone: [facility] 07-06-2024 13:32-0400 Body weight 83.5 kg Trinidad Cioce PLISSE MACHINE OPERATOR HELPER.SALOONKEEPER Work Phone: [facility] 07-06-2024 13:32-0400 Diastolic blood pressure 84 mm[Hg] Trinidad Cioce PLISSE MACHINE OPERATOR HELPER.SALOONKEEPER Work Phone: [facility] 07-06-2024 13:32-0400 Heart rate 95 /min Trinidad Cioce PLISSE MACHINE OPERATOR HELPER.SALOONKEEPER Work Phone: [facility] 07-06-2024 13:32-0400 Respiratory rate 14 /min Trinidad Cioce PLISSE MACHINE OPERATOR HELPER.SALOONKEEPER Work Phone: [facility] 07-06-2024 13:32-0400 SaO2% (BldA) [Mass fraction] 98 % Trinidad Cioce PLISSE MACHINE OPERATOR HELPER.SALOONKEEPER Work Phone: [facility] 07-06-2024 13:32-0400 Systolic blood pressure 160 mm[Hg] Trinidad Cioce PLISSE MACHINE OPERATOR HELPER.SALOONKEEPER Work Phone: [facility] 07-04-2024 14:16-0400 Body height 172.7 cm Alondra Juliet PLISSE MACHINE OPERATOR HELPER.SALOONKEEPER Work Phone: [facility] 07-04-2024 14:16-0400 Body mass index (BMI) [Ratio] 27.96 kg/m2 Alondra Juliet PLISSE MACHINE OPERATOR HELPER.SALOONKEEPER Work Phone: [facility] 07-04-2024 14:16-0400 Body weight 83.4 kg Alondra Juliet PLISSE MACHINE OPERATOR HELPER.SALOONKEEPER Work Phone: [facility] 07-04-2024 14:16-0400 Diastolic blood pressure 94 mm[Hg] Alondra Juliet PLISSE MACHINE OPERATOR HELPER.SALOONKEEPER Work Phone: [facility] 07-04-2024 14:16-0400 Heart rate 107 /min Alondra Juliet PLISSE MACHINE OPERATOR HELPER.SALOONKEEPER Work Phone: [facility] 07-04-2024 14:16-0400 Respiratory rate 16 /min Alondra Juliet PLISSE MACHINE OPERATOR HELPER.SALOONKEEPER Work Phone: [facility] 07-04-2024 14:16-0400 SaO2% (BldA) [Mass fraction] 97 % Alondra Juliet PLISSE MACHINE OPERATOR HELPER.SALOONKEEPER Work Phone: [facility] 07-04-2024 14:16-0400 Systolic blood pressure 187 mm[Hg] Alondra Juliet PLISSE MACHINE OPERATOR HELPER.SALOONKEEPER Work Phone: [facility] 06-01-2024 16:55-0400 Body mass index (BMI) [Ratio] 28.34 kg/m2 Tresa Marcum PLISSE MACHINE OPERATOR HELPER.SALOONKEEPER Work Phone: [facility] 06-01-2024 16:55-0400 Body weight 84.55 kg Tresa Haagen PLISSE MACHINE OPERATOR HELPER.SALOONKEEPER Work Phone: [facility] 06-01-2024 13:35-0400 Diastolic blood pressure 92 mm[Hg] Tresa Haagen PLISSE MACHINE OPERATOR HELPER.SALOONKEEPER Work Phone: [facility] 06-01-2024 13:35-0400 Heart rate 95 /min Tresa Haagen PLISSE MACHINE OPERATOR HELPER.SALOONKEEPER Work Phone: [facility] 06-01-2024 13:35-0400 Respiratory rate 16 /min Tresa Haagen PLISSE MACHINE OPERATOR HELPER.SALOONKEEPER Work Phone: [facility] 06-01-2024 13:35-0400 SaO2% (BldA) [Mass fraction] 98 % Tresa Haagen PLISSE MACHINE OPERATOR HELPER.SALOONKEEPER Work Phone: [facility] 06-01-2024 13:35-0400 Systolic blood pressure 184 mm[Hg] Tresa Haagen PLISSE MACHINE OPERATOR HELPER.SALOONKEEPER Work Phone: [facility] 04-15-2024 12:29-0500 Body mass index (BMI) [Ratio] 29.16 kg/m2 Sha Ray PLISSE MACHINE OPERATOR HELPER.SALOONKEEPER Work Phone: [facility] 04-15-2024 12:29-0500 Body temperature 98.01 [degF] Sha Levinemilind PLISSE MACHINE OPERATOR HELPER.SALOONKEEPER Work Phone: [facility] 04-15-2024 12:29-0500 Body weight 87 [facility] PLISSE MACHINE OPERATOR HELPER.SALOONKEEPER Work Phone: [facility] 04-15-2024 12:29-0500 Diastolic blood pressure 80 mm[Hg] [facility] PLISSE MACHINE OPERATOR HELPER.SALOONKEEPER Work Phone: [facility] Comment on above: checked BP x 2 04-15-2024 12:29-0500 Heart rate 96 /min [facility] PLISSE MACHINE OPERATOR HELPER.SALOONKEEPER Work Phone: [facility] 04-15-2024 12:29-0500 Respiratory rate 20 /min [facility] PLISSE MACHINE OPERATOR HELPER.SALOONKEEPER Work Phone: [facility] 04-15-2024 12:29-0500 SaO2% (BldA) [Mass fraction] 99 % [facility] PLISSE MACHINE OPERATOR HELPER.SALOONKEEPER Work Phone: [facility] 04-15-2024 12:29-0500 Systolic blood pressure 173 mm[Hg] [facility] PLISSE MACHINE OPERATOR HELPER.SALOONKEEPER Work Phone: [facility] Comment on above: checked BP x 2 03-25-2024 10:56-0500 Body height 172.7 cm Ignacio Cheatham MD Work Phone: [facility] 03-25-2024 10:56-0500 Body mass index (BMI) [Ratio] 28.79 kg/m2 Ignacio Cheatham MD Work Phone: [facility] 03-25-2024 10:56-0500 Body weight 85.9 kg Ignacio Cheatham MD Work Phone: [facility] 03-25-2024 10:56-0500 Diastolic blood pressure 84 mm[Hg] Ignacio Cheatham MD Work Phone: [facility] 03-25-2024 10:56-0500 Heart rate 96 /min Ignacio Cheatham MD Work Phone: [facility] 03-25-2024 10:56-0500 SaO2% (BldA) [Mass fraction] 97 % Ignacio Cheatham MD Work Phone: [facility] 03-25-2024 10:56-0500 Systolic blood pressure 186 mm[Hg] Ignacio Cheatham MD Work Phone: [facility] 02-09-2024 11:15-0500 Diastolic blood pressure 84 mm[Hg] Saira Jackson DO Work Phone: [facility] Comment on above: pt said it is time to take bp meds 02-09-2024 11:15-0500 Heart rate 98 /min Saira Jackson DO Work Phone: [facility] 02-09-2024 11:15-0500 SaO2% (BldA) [Mass fraction] 99 % Saira Jackson DO Work Phone: [facility] 02-09-2024 11:15-0500 Systolic blood pressure 172 mm[Hg] Saira Jackson DO Work Phone: [facility] Comment on above: pt said it is time to take bp meds 12-25-2023 09:47-0400 Body mass index (BMI) [Ratio] 28.22 kg/m2 Ignacio Cheatham MD Work Phone: [facility] 12-25-2023 09:47-0400 Body weight 84.19 kg Ignacio Cheatham MD Work Phone: [facility] 12-25-2023 09:47-0400 Diastolic blood pressure 58 mm[Hg] Ignacio Cheatham MD Work Phone: [facility] 12-25-2023 09:47-0400 Heart rate 113 /min Ignacio Cheatham MD Work Phone: [facility] 12-25-2023 09:47-0400 SaO2% (BldA) [Mass fraction] 99 % Ignacio Cheatham MD Work Phone: [facility] 12-25-2023 09:47-0400 Systolic blood pressure 118 mm[Hg] Ignacio Cheatham MD Work Phone: [facility] 12-21-2023 14:49-0400 Body height 172.7 cm Dorene Murillo MD Work Phone: [facility] 12-21-2023 14:49-0400 Body mass index (BMI) [Ratio] 28.74 kg/m2 Dorene Murillo MD Work Phone: [facility] 12-21-2023 14:49-0400 Body weight 85.73 kg Dorene Murillo MD Work Phone: [facility] 12-21-2023 14:49-0400 Respiratory rate 16 /min Dorene Murillo MD Work Phone: [facility] 12-11-2023 11:17-0400 Body mass index (BMI) [Ratio] 28.79 kg/m2 Tresa Marcum PLISSE MACHINE OPERATOR HELPER.SALOONKEEPER Work Phone: [facility] 12-11-2023 11:17-0400 Body weight 85.9 kg Tresa Marcum PLISSE MACHINE OPERATOR HELPER.SALOONKEEPER Work Phone: [facility] 12-11-2023 11:17-0400 Diastolic blood pressure 72 mm[Hg] Tresa Marcum PLISSE MACHINE OPERATOR HELPER.SALOONKEEPER Work Phone: [facility] 12-11-2023 11:17-0400 Heart rate 102 /min Tresa Marcum PLISSE MACHINE OPERATOR HELPER.SALOONKEEPER Work Phone: [facility] 12-11-2023 11:17-0400 Respiratory rate 16 /min Tresa Marcum PLISSE MACHINE OPERATOR HELPER.SALOONKEEPER Work Phone: [facility] 12-11-2023 11:17-0400 SaO2% (BldA) [Mass fraction] 98 % Tresa Marcum PLISSE MACHINE OPERATOR HELPER.SALOONKEEPER Work Phone: [facility] 12-11-2023 11:17-0400 Systolic blood pressure 130 mm[Hg] Tresa Marcum PLISSE MACHINE OPERATOR HELPER.SALOONKEEPER Work Phone: [facility] 09-14-2023 09:30-0400 Body height 172.7 cm Dorene Murillo MD Work Phone: [facility] 09-14-2023 09:30-0400 Body mass index (BMI) [Ratio] 29.5 kg/m2 Dorene Murillo MD Work Phone: [facility] 09-14-2023 09:30-0400 Body weight 88 kg Dorene Murillo MD Work Phone: [facility] 09-14-2023 09:30-0400 Respiratory rate 18 /min Dorene Murillo MD Work Phone: [facility] 08-17-2023 11:28-0400 Body height 172.7 cm Dorene Murillo MD Work Phone: [facility] 08-17-2023 11:28-0400 Body mass index (BMI) [Ratio] 29.5 kg/m2 Dorene Murillo MD Work Phone: [facility] 08-17-2023 11:28-0400 Body weight 88 kg Dorene Murillo MD Work Phone: [facility] 08-17-2023 11:28-0400 Respiratory rate 18 /min Dorene Murillo MD Work Phone: [facility] 07-06-2023 11:58-0400 Body height 170.2 cm Dorene Murillo MD Work Phone: [facility] 07-06-2023 11:58-0400 Body mass index (BMI) [Ratio] 31.17 kg/m2 Dorene Murillo MD Work Phone: [facility] 07-06-2023 11:58-0400 Body weight 90.27 kg Dorene Murillo MD Work Phone: [facility] 07-06-2023 11:58-0400 Respiratory rate 20 /min Dorene Murillo MD Work Phone: [facility] 07-02-2023 15:21-0400 Body temperature 98.1 [degF] [facility] 07-02-2023 15:21-0400 Diastolic blood pressure 56 mm[Hg] [facility] 07-02-2023 15:21-0400 Heart rate 91 /min [facility] 07-02-2023 15:21-0400 Respiratory rate 16 /min [facility] 07-02-2023 15:21-0400 SaO2% (BldA) [Mass fraction] 99 % [facility] 07-02-2023 15:21-0400 Systolic blood pressure 135 mm[Hg] [facility] 07-02-2023 09:19-0400 Body height 172.72 cm [facility] 07-02-2023 09:19-0400 Body mass index (BMI) [Ratio] 30.5 kg/m2 [facility] 07-02-2023 09:19-0400 Body weight 91.12 kg [facility] 06-30-2023 02:17-0400 Body temperature 97.3 [degF] [facility] 06-30-2023 02:17-0400 Diastolic blood pressure 73 mm[Hg] [facility] 06-30-2023 02:17-0400 Heart rate 80 /min [facility] 06-30-2023 02:17-0400 Respiratory rate 18 /min [facility] 06-30-2023 02:17-0400 SaO2% (BldA) [Mass fraction] 96 % [facility] 06-30-2023 02:17-0400 Systolic blood pressure 140 mm[Hg] [facility] 06-29-2023 19:40-0400 Body height 172.72 cm [facility] 06-29-2023 19:40-0400 Body mass index (BMI) [Ratio] 32.7 kg/m2 [facility] 06-29-2023 19:40-0400 Body weight 97.6 kg [facility] 06-09-2023 11:54-0400 Body temperature 98.6 [degF] [facility] 06-09-2023 11:54-0400 Diastolic blood pressure 64 mm[Hg] [facility] 06-09-2023 11:54-0400 Heart rate 93 /min [facility] 06-09-2023 11:54-0400 Respiratory rate 18 /min [facility] 06-09-2023 11:54-0400 SaO2% (BldA) [Mass fraction] 99 % [facility] 06-09-2023 11:54-0400 Systolic blood pressure 153 mm[Hg] [facility] 06-09-2023 07:24-0400 Body mass index (BMI) [Ratio] 32.6 kg/m2 [facility] 06-09-2023 07:24-0400 Body weight 97.4 kg [facility] 06-04-2023 10:08-0400 Body height 172.72 cm [facility] 06-04-2023 10:08-0400 Body temperature 98 [degF] [facility] 06-04-2023 10:08-0400 Diastolic blood pressure 68 mm[Hg] [facility] 06-04-2023 10:08-0400 Heart rate 94 /min [facility] 06-04-2023 10:08-0400 Respiratory rate 14 /min [facility] 06-04-2023 10:08-0400 SaO2% (BldA) [Mass fraction] 98 % [facility] 06-04-2023 10:08-0400 Systolic blood pressure 159 mm[Hg] [facility] 03-09-2023 09:37-0500 SaO2% (BldA) [Mass fraction] 100 % Dr. Ignacio Cheatham Work Phone: [facility] 03-09-2023 09:34-0500 Body height 172.[address] Ignacio Cheatham Work Phone: [facility] 03-09-2023 09:34-0500 Body mass index (BMI) [Ratio] 34.9 kg/m2 Dr. Ignacio Cheatham Work Phone: [facility] 03-09-2023 09:34-0500 Body temperature 97.9 [degF] Dr. Ignacio Cheatham Work Phone: [facility] 03-09-2023 09:34-0500 Body weight 104.[address] Ignacio Cheatham Work Phone: [facility] 03-09-2023 09:34-0500 Diastolic blood pressure 78 mm[Hg] Dr. Ignacio Cheatham Work Phone: 7(558)588-947955 [place] [address] 03-09-2023 09:34-0500 Heart rate 102 /min Dr. Ignacio Cheatham Work Phone: 2(464)323-486155 [place] [address] 03-09-2023 09:34-0500 Respiratory rate 20 /min Dr. Ignacio Cheatham Work Phone: 7(972)165-612555 [place] [address] 03-09-2023 09:34-0500 Systolic blood pressure 172 mm[Hg] Dr. Ignacio Cheatham Work Phone: 3(756)052-841155 [place] [address] 02-04-2023 12:12-0500 Respiratory rate 14 /min Dr. Ignacio Cheatham Work Phone: 0(486)703-055855 [place] [address] 02-04-2023 09:49-0500 Body height 172.[address] Ignacio Cheatham Work Phone: 7(980)066-343655 [place] [address] 02-04-2023 09:49-0500 Body mass index (BMI) [Ratio] 31.6 kg/m2 Dr. Ignacio Cheatham Work Phone: 7(883)983-416355 [place] [address] 02-04-2023 09:49-0500 Body temperature 97.2 [degF] Dr. Ignacio Cheatham Work Phone: 0(520)693-381555 [place] [address] 02-04-2023 09:49-0500 Body weight 94.[address] Ignacio Cheatham Work Phone: 4(612)312-686155 [place] [address] 02-04-2023 09:49-0500 Diastolic blood pressure 49 mm[Hg] Dr. Ignacio Cheatham Work Phone: 3(514)682-567355 [place] [address] 02-04-2023 09:49-0500 Heart rate 97 /min Dr. Ignacio Cheatham Work Phone: 2(053)744-353855 [place] [address] 02-04-2023 09:49-0500 SaO2% (BldA) [Mass fraction] 90 % Dr. Ignacio Cheatham Work Phone: 4(494)067-207855 [place] [address] 02-04-2023 09:49-0500 Systolic blood pressure 114 mm[Hg] Dr. Ignacio Cheatham Work Phone: 5(669)568-001555 [place] [address] 01-29-2023 13:33-0500 Body temperature 96.7 [degF] Dr. Ignacio Cheatham Work Phone: 7(726)408-422155 [place] [address] 01-29-2023 13:33-0500 Diastolic blood pressure 66 mm[Hg] Dr. Ignacio Cheatham Work Phone: 6(217)885-476455 [place] [address] 01-29-2023 13:33-0500 Heart rate 90 /min Dr. Ignacio Cheatham Work Phone: 8(409)928-656355 [place] [address] 01-29-2023 13:33-0500 Respiratory rate 16 /min Dr. Ignacio Cheatham Work Phone: 1(766)054-012955 [place] [address] 01-29-2023 13:33-0500 SaO2% (BldA) [Mass fraction] 99 % Dr. Ignacio Cheatham Work Phone: 1(542)351-107855 [place] [address] 01-29-2023 13:33-0500 Systolic blood pressure 157 mm[Hg] Dr. Ignacio Cheatham Work Phone: 7(716)976-812755 [place] [address] 01-29-2023 12:10-0500 Body mass index (BMI) [Ratio] 33.7 kg/m2 Dr. Ignacio Cheatham Work Phone: 3(490)816-971855 [place] [address] 01-29-2023 12:10-0500 Body weight 100.[address] Ignacio Cheatham Work Phone: 9(974)302-702555 [place] [address] 01-26-2023 08:52-0500 Inhaled oxygen flow rate 2 L/min Dr. Ignacio Cheatham Work Phone: 7(745)007-418355 [place] [address] 01-25-2023 12:56-0500 Body height 172.[address] Ignacio Cheatham Work Phone: 4(673)186-744555 [place] [address] 01-19-2023 16:14-0500 Diastolic blood pressure 71 mm[Hg] Dr. Ignacio Cheatham Work Phone: 7(828)864-085255 [place] [address] 01-19-2023 16:14-0500 Heart rate 87 /min Dr. Ignacio Cheatham Work Phone: 5(839)739-647355 [place] [address] 01-19-2023 16:14-0500 Respiratory rate 17 /min Dr. Ignacio Cheatham Work Phone: 8(559)676-194189 [place] [address] 01-19-2023 16:14-0500 SaO2% (BldA) [Mass fraction] 98 % Dr. Ignacio Cheatham Work Phone: 9(833)722-373255 [place] [address] 01-19-2023 16:14-0500 Systolic blood pressure 167 mm[Hg] Dr. Ignacio Cheatham Work Phone: 1(076)553-809855 [place] [address] 01-19-2023 07:13-0500 Body height 172.[address] Ignacio Cheatham Work Phone: 0(079)514-789155 [place] [address] 01-19-2023 07:13-0500 Body mass index (BMI) [Ratio] 36.6 kg/m2 Dr. Ignacio Cheatham Work Phone: 6(264)279-048255 [place] [address] 01-19-2023 07:13-0500 Body temperature 97.7 [degF] Dr. Ignacio Cheatham Work Phone: 8(979)654-886855 [place] [address] 01-19-2023 07:13-0500 Body weight 109.[address] Ignacio Cheatham Work Phone: 7(386)870-506355 [place] [address] 01-15-2023 16:58-0500 Heart rate 67 /min Dr. Ignacio Cheatham Work Phone: 2(341)421-988355 [place] [address] 01-15-2023 16:58-0500 Respiratory rate 15 /min Dr. Ignacio Cheatham Work Phone: 0(496)001-922655 [place] [address] 01-15-2023 16:58-0500 SaO2% (BldA) [Mass fraction] 97 % Dr. Ignacio Cheatham Work Phone: 7(320)508-466155 [place] [address] 01-15-2023 11:39-0500 Body height 172.[address] Ignacio Cheatham Work Phone: 8(421)001-369355 [place] [address] 01-15-2023 11:39-0500 Body mass index (BMI) [Ratio] 31.6 kg/m2 Dr. Ignacio Cheatham Work Phone: 9(176)584-761655 [place] [address] 01-15-2023 11:39-0500 Body temperature 97.4 [degF] Dr. Ignacio Cheatham Work Phone: 3(516)387-943855 [place] [address] 01-15-2023 11:39-0500 Body weight 94.[address] Ignacio Cheatham Work Phone: 7(050)589-077055 [place] [address] 01-15-2023 11:39-0500 Diastolic blood pressure 65 mm[Hg] Dr. Ignacio Cheatham Work Phone: 2(562)519-954355 [place] [address] 01-15-2023 11:39-0500 Systolic blood pressure 137 mm[Hg] Dr. Ignacio Cheatham Work Phone: 6(068)088-892555 [place] [address] 01-13-2023 14:29-0500 Diastolic blood pressure 79 mm[Hg] Dr. Ignacio Cheatham Work Phone: 2(661)403-866755 [place] [address] 01-13-2023 14:29-0500 Heart rate 68 /min Dr. Ignacio Cheatham Work Phone: 7(419)733-387755 [place] [address] 01-13-2023 14:29-0500 Respiratory rate 15 /min Dr. Ignacio Cheatham Work Phone: 3(743)185-203855 [place] [address] 01-13-2023 14:29-0500 SaO2% (BldA) [Mass fraction] 97 % Dr. Ignacio Cheatham Work Phone: 0(990)130-072555 [place] [address] 01-13-2023 14:29-0500 Systolic blood pressure 122 mm[Hg] Dr. Ignacio Cheatham Work Phone: 5(743)729-074855 [place] [address] 01-13-2023 12:34-0500 Body mass index (BMI) [Ratio] 32.1 kg/m2 Dr. Ignacio Cheatham Work Phone: 1(004)848-652055 [place] [address] 01-13-2023 12:34-0500 Body weight 96.[address] Ignacio Cheatham Work Phone: 0(025)346-000055 [place] [address] 01-13-2023 12:03-0500 Body height 172.[address] Ignacio Cheatham Work Phone: 8(130)063-615255 [place] [address] 01-13-2023 12:03-0500 Body temperature 96.7 [degF] Dr. Ignacio Cheatham Work Phone: 8(448)658-353255 [place] [address] 11-19-2022 11:29-0400 Body temperature 98.01 [degF] Kimberli Saleem PLISSE MACHINE OPERATOR HELPER.SALOONKEEPER Work Phone: [facility] 11-19-2022 11:29-0400 Body weight 98.61 kg Kimberli Saleem PLISSE MACHINE OPERATOR HELPER.SALOONKEEPER Work Phone: [facility] 11-19-2022 11:29-0400 Diastolic blood pressure 80 mm[Hg] Kimberli Saleem PLISSE MACHINE OPERATOR HELPER.SALOONKEEPER Work Phone: [facility] 11-19-2022 11:29-0400 Heart rate 111 /min Kimberli Saleem PLISSE MACHINE OPERATOR HELPER.SALOONKEEPER Work Phone: [facility] 11-19-2022 11:29-0400 Respiratory rate 18 /min Kimberli Saleem PLISSE MACHINE OPERATOR HELPER.SALOONKEEPER Work Phone: [facility] 11-19-2022 11:29-0400 SaO2% (BldA) [Mass fraction] 97 % Kimberli Saleem PLISSE MACHINE OPERATOR HELPER.SALOONKEEPER Work Phone: [facility] 11-19-2022 11:29-0400 Systolic blood pressure 146 mm[Hg] Kimberli Saleem PLISSE MACHINE OPERATOR HELPER.SALOONKEEPER Work Phone: [facility] 11-07-2022 12:36-0400 Body weight 99.61 kg Brooke Podlogar PLISSE MACHINE OPERATOR HELPER.SALOONKEEPER Work Phone: [facility] 11-07-2022 12:36-0400 Diastolic blood pressure 60 mm[Hg] Brooke Podlogar PLISSE MACHINE OPERATOR HELPER.SALOONKEEPER Work Phone: [facility] 11-07-2022 12:36-0400 Heart rate 91 /min Brooke Podlogar PLISSE MACHINE OPERATOR HELPER.SALOONKEEPER Work Phone: [facility] 11-07-2022 12:36-0400 Respiratory rate 16 /min Brooke Podlogar PLISSE MACHINE OPERATOR HELPER.SALOONKEEPER Work Phone: [facility] 11-07-2022 12:36-0400 SaO2% (BldA) [Mass fraction] 97 % Brooke Podlogar PLISSE MACHINE OPERATOR HELPER.SALOONKEEPER Work Phone: [facility] 11-07-2022 12:36-0400 Systolic blood pressure 142 mm[Hg] Brooke Manning APRN.CNP Work Phone: [facility] 10-30-2022 11:27-0400 Diastolic blood pressure 65 mm[Hg] Dr. Ignacio Cheatham Work Phone: [facility] 10-30-2022 11:27-0400 Heart rate 79 /min Dr. Ignacio Cheatham Work Phone: [facility] 10-30-2022 11:27-0400 Respiratory rate 17 /min Dr. Ignacio Cheatham Work Phone: [facility] 10-30-2022 11:27-0400 Systolic blood pressure 135 mm[Hg] Dr. Ignacio Cheatham Work Phone: [facility] 10-30-2022 07:17-0400 Body height 172.[address] Ignacio Cheatham Work Phone: [facility] 10-30-2022 07:17-0400 Body mass index (BMI) [Ratio] 34.8 kg/m2 Dr. Ignacio Cheatham Work Phone: [facility] 10-30-2022 07:17-0400 Body temperature 96.5 [degF] Dr. Ignacio Cheatham Work Phone: [facility] 10-30-2022 07:17-0400 Body weight [address] Ignacio Cheatham Work Phone: [facility] 10-20-2022 14:13-0400 Body weight 101.15 kg Ignacio Cheatham MD Work Phone: [facility] 10-20-2022 14:13-0400 Diastolic blood pressure 72 mm[Hg] Ignacio Cheatham MD Work Phone: [facility] 10-20-2022 14:13-0400 Heart rate 93 /min Ignacio Cheatham MD Work Phone: [facility] 10-20-2022 14:13-0400 SaO2% (BldA) [Mass fraction] 98 % Ignacio Cheatham MD Work Phone: [facility] 10-20-2022 14:13-0400 Systolic blood pressure 152 mm[Hg] Ignacio Cheatham MD Work Phone: [facility] 10-15-2022 17:32-0400 Body mass index (BMI) [Ratio] 75.2 kg/m2 Dr. Ignacio Cheatham Work Phone: [facility] 10-15-2022 17:32-0400 Body weight 224.[address] Ignacio Cheatham Work Phone: [facility] 10-15-2022 17:11-0400 Body height 172.[address] Ignacio Cheatham Work Phone: 9(139)689-312755 [place] [address] 10-15-2022 17:11-0400 Body temperature 97.7 [degF] Dr. Ignacio Cheatham Work Phone: 3(278)486-860555 [place] [address] 10-15-2022 17:11-0400 Diastolic blood pressure 57 mm[Hg] Dr. Ignacio Cheatham Work Phone: 3(797)161-591955 [place] [address] 10-15-2022 17:11-0400 Heart rate 98 /min Dr. Ignacio Cheatham Work Phone: 8(685)838-772655 [place] [address] 10-15-2022 17:11-0400 Respiratory rate 18 /min Dr. Ignacio Cheatham Work Phone: [facility] 10-15-2022 17:11-0400 SaO2% (BldA) [Mass fraction] 98 % Dr. Ignacio Cheatham Work Phone: [facility] 10-15-2022 17:11-0400 Systolic blood pressure 131 mm[Hg] Dr. Ignacio Cheatham Work Phone: [facility] 09-12-2022 13:32-0400 Body temperature 98 [degF] Dr. Ignacio Cheatham Work Phone: [facility] 09-12-2022 13:32-0400 Diastolic blood pressure 54 mm[Hg] Dr. Ignacio Cheatham Work Phone: [facility] 09-12-2022 13:32-0400 Heart rate 88 /min Dr. Ignacio Cheatham Work Phone: [facility] 09-12-2022 13:32-0400 Respiratory rate 16 /min Dr. Ignacio Cheatham Work Phone: [facility] 09-12-2022 13:32-0400 SaO2% (BldA) [Mass fraction] 99 % Dr. Ignacio Cheatham Work Phone: [facility] 09-12-2022 13:32-0400 Systolic blood pressure 156 mm[Hg] Dr. Ignacio Cheatham Work Phone: [facility] 09-12-2022 06:00-0400 Body mass index (BMI) [Ratio] 35.4 kg/m2 Dr. Ignacio Cheatham Work Phone: [facility] 09-12-2022 06:00-0400 Body weight 105.[address] Ignacio Cheatham Work Phone: [facility] 09-10-2022 04:02-0400 Body height 172.[address] Ignacio Cheatham Work Phone: [facility] 09-09-2022 16:11-0400 Diastolic blood pressure 92 mm[Hg] Ignacio Cheatham MD Work Phone: [facility] 09-09-2022 16:11-0400 Heart rate 105 /min Ignacio Cheatham MD Work Phone: [facility] 09-09-2022 16:11-0400 SaO2% (BldA) [Mass fraction] 96 % Ignacio Cheatham MD Work Phone: [facility] 09-09-2022 16:11-0400 Systolic blood pressure 160 mm[Hg] Ignacio Cheatham MD Work Phone: [facility] 09-07-2022 14:57-0400 Diastolic blood pressure 74 mm[Hg] [facility] 09-07-2022 14:57-0400 Heart rate 80 /min [facility] 09-07-2022 14:57-0400 Respiratory rate 16 /min [facility] 09-07-2022 14:57-0400 SaO2% (BldA) [Mass fraction] 99 % [facility] 09-07-2022 14:57-0400 Systolic blood pressure 177 mm[Hg] [facility] 09-07-2022 13:46-0400 Body height 172.72 cm [facility] 09-07-2022 13:46-0400 Body mass index (BMI) [Ratio] 35.9 kg/m2 [facility] 09-07-2022 13:46-0400 Body temperature 97.5 [degF] [facility] 09-07-2022 13:46-0400 Body weight 107.2 kg [facility] 07-31-2022 09:59-0400 Body temperature 98.2 [degF] Sha Cory PLISSE MACHINE OPERATOR HELPER.SALOONKEEPER Work Phone: [facility] 07-31-2022 09:59-0400 Body weight 106.41 kg Sha Ray PLISSE MACHINE OPERATOR HELPER.SALOONKEEPER Work Phone: [facility] 07-31-2022 09:59-0400 Diastolic blood pressure 92 mm[Hg] Sha Ray PLISSE MACHINE OPERATOR HELPER.SALOONKEEPER Work Phone: [facility] 07-31-2022 09:59-0400 Heart rate 95 /min Sha Ray PLISSE MACHINE OPERATOR HELPER.SALOONKEEPER Work Phone: [facility] 07-31-2022 09:59-0400 Respiratory rate 16 /min Sha Ray PLISSE MACHINE OPERATOR HELPER.SALOONKEEPER Work Phone: [facility] 07-31-2022 09:59-0400 SaO2% (BldA) [Mass fraction] 98 % Sha Ray PLISSE MACHINE OPERATOR HELPER.SALOONKEEPER Work Phone: [facility] 07-31-2022 09:59-0400 Systolic blood pressure 158 mm[Hg] Sha Ray PLISSE MACHINE OPERATOR HELPER.SALOONKEEPER Work Phone: [facility] 06-30-2022 15:26-0400 Body height 172.7 cm [facility] 1 Work Phone: [facility] 06-30-2022 15:26-0400 Body temperature 97.11 [degF] [facility] Work Phone: [facility] 06-30-2022 [id number] Body weight 107.5 kg [facility] Work Phone: [facility] 06-30-2022 15:26-0400 Diastolic blood pressure 86 mm[Hg] [facility] Work Phone: [facility] 06-30-2022 15:26-0400 Heart rate 89 /min [facility] Work Phone: [facility] 06-30-2022 15:0400 Respiratory rate 16 /min [facility] Work Phone: [facility] 06-30-2022 [id number] SaO2% (BldA) [Mass fraction] 96 % [facility] Work Phone: [facility] 06-30-2022 [id number] Systolic blood pressure 138 mm[Hg] [facility] Work Phone: [facility] 06-24-2022 10:130400 Body temperature 97.7 [degF] Kirsten Athy PA-C Work Phone: [facility] 06-24-2022 10:130400 Body weight 108.41 kg Kirsten Athy PA-C Work Phone: [facility] 06-24-2022 10:130400 Diastolic blood pressure 78 mm[Hg] Kirsten Athy PA-C Work Phone: [facility] 06-24-2022 10:130400 Heart rate 90 /min Kirsten Athy PA-C Work Phone: [facility] 06-24-2022 10:130400 Respiratory rate 18 /min Kirsten Athy PA-C Work Phone: [facility] 06-24-2022 10:130400 SaO2% (BldA) [Mass fraction] 95 % Kirsten Athy PA-C Work Phone: [facility] 06-24-2022 10:13-0400 Systolic blood pressure 132 mm[Hg] Kirsten Athy PA-C Work Phone: [facility] 05-26-2022 14:44-0400 Body weight 105.51 kg Goldy Maditz DO Work Phone: [facility] 05-26-2022 14:44-0400 Diastolic blood pressure 89 mm[Hg] Goldy Maditz DO Work Phone: [facility] 05-26-2022 14:44-0400 Heart rate 106 /min Goldy Maditz DO Work Phone: [facility] 05-26-2022 14:44-0400 Systolic blood pressure 162 mm[Hg] Goldy Maditz DO Work Phone: [facility] 04-02-2022 12:01-0500 Body temperature 97.81 [degF] Kirsten Athy PA-C Work Phone: [facility] 04-02-2022 12:01-0500 Body weight 104.69 kg Kirsten Athy PA-C Work Phone: [facility] 04-02-2022 12:01-0500 Diastolic blood pressure 72 mm[Hg] Kirsten Athy PA-C Work Phone: [facility] 04-02-2022 12:01-0500 Heart rate 124 /min Kirsten Athy PA-C Work Phone: [facility] 04-02-2022 12:01-0500 Respiratory rate 18 /min Kirsten Athy PA-C Work Phone: [facility] 04-02-2022 12:01-0500 SaO2% (BldA) [Mass fraction] 99 % Kirsten Athy PA-C Work Phone: [facility] 04-02-2022 12:01-0500 Systolic blood pressure 122 mm[Hg] Kirsten Athy PA-C Work Phone: [facility] [facility] 03-04-2022 14:17-0500 Body temperature 98.2 [degF] Hever Praisler-Wood PLISSE MACHINE OPERATOR HELPER.SALOONKEEPER Work Phone: [facility] 03-04-2022 14:17-0500 Body weight 104.6 kg Hever Praisler-Wood PLISSE MACHINE OPERATOR HELPER.SALOONKEEPER Work Phone: [facility] 03-04-2022 14:17-0500 Diastolic blood pressure 88 mm[Hg] Hever Praisler-Wood PLISSE MACHINE OPERATOR HELPER.SALOONKEEPER Work Phone: [facility] 03-04-2022 14:17-0500 Heart rate 84 /min Hever Praisler-Wood PLISSE MACHINE OPERATOR HELPER.SALOONKEEPER Work Phone: [facility] 03-04-2022 14:17-0500 Respiratory rate 16 /min Hever Praisler-Wood PLISSE MACHINE OPERATOR HELPER.SALOONKEEPER Work Phone: [facility] 03-04-2022 14:17-0500 SaO2% (BldA) [Mass fraction] 98 % Hever Praisler-Wood PLISSE MACHINE OPERATOR HELPER.SALOONKEEPER Work Phone: [facility] 03-04-2022 14:17-0500 Systolic blood pressure 148 mm[Hg] Hever Praisler-Wood PLISSE MACHINE OPERATOR HELPER.SALOONKEEPER Work Phone: [facility] 02-18-2022 08:58-0500 Body temperature 96.91 [degF] Jimmy Hima PLISSE MACHINE OPERATOR HELPER.SALOONKEEPER Work Phone: [facility] 02-18-2022 08:58-0500 Body weight 106.59 kg Jimmy Hima PLISSE MACHINE OPERATOR HELPER.SALOONKEEPER Work Phone: [facility] 02-18-2022 08:58-0500 Diastolic blood pressure 84 mm[Hg] Jimmy Hima PLISSE MACHINE OPERATOR HELPER.SALOONKEEPER Work Phone: [facility] 02-18-2022 08:58-0500 Heart rate 102 /min Jimmy Hima PLISSE MACHINE OPERATOR HELPER.SALOONKEEPER Work Phone: [facility] 02-18-2022 08:58-0500 Respiratory rate 18 /min Jimmy Hima PLISSE MACHINE OPERATOR HELPER.SALOONKEEPER Work Phone: [facility] 02-18-2022 08:58-0500 SaO2% (BldA) [Mass fraction] 100 % Jimmy Rabago PLISSE MACHINE OPERATOR HELPER.SALOONKEEPER Work Phone: [facility] 02-18-2022 08:58-0500 Systolic blood pressure 166 mm[Hg] Jimmy Rabago PATRICE.SALOONKEEPER Work Phone: [facility] 02-04-2022 13:57-0500 Body height 170 cm Goldy Maditz DO Work Phone: [facility] 02-04-2022 13:57-0500 Body weight 105.5 kg Goldy Maditz DO Work Phone: [facility] 02-04-2022 13:57-0500 Diastolic blood pressure 91 mm[Hg] Goldy Maditz DO Work Phone: [facility] 02-04-2022 13:57-0500 Heart rate 97 /min Goldy Maditz DO Work Phone: [facility] 02-04-2022 13:57-0500 Systolic blood pressure 180 mm[Hg] Goldy Maditz DO Work Phone: [facility] 01-13-2022 14:00-0500 Body temperature 97.2 [degF] Treatment Wstr Work Phone: [facility] 01-13-2022 14:00-0500 Diastolic blood pressure 79 mm[Hg] Treatment Wstr Work Phone: [facility] 01-13-2022 14:00-0500 Heart rate 92 /min Treatment Wstr Work Phone: [facility] 01-13-2022 14:00-0500 Respiratory rate 20 /min Treatment Wstr Work Phone: [facility] 01-13-2022 14:00-0500 SaO2% (BldA) [Mass fraction] 99 % Treatment Wstr Work Phone: [facility] 01-13-2022 14:00-0500 Systolic blood pressure 172 mm[Hg] Treatment Wstr Work Phone: [facility] 01-10-2022 14:38-0500 Body temperature 97.11 [degF] Treatment Wstr Work Phone: [facility] 01-10-2022 14:38-0500 Diastolic blood pressure 95 mm[Hg] Treatment Wstr Work Phone: [facility] 01-10-2022 14:38-0500 Heart rate 98 /min Treatment Wstr Work Phone: [facility] 01-10-2022 14:38-0500 Systolic blood pressure 160 mm[Hg] Treatment Wstr Work Phone: [facility] 01-08-2022 14:00-0500 Body temperature 97.11 [degF] Treatment Wstr Work Phone: [facility] 01-08-2022 14:00-0500 Diastolic blood pressure 89 mm[Hg] Treatment Wstr Work Phone: [facility] 01-08-2022 14:00-0500 Heart rate 100 /min Treatment Wstr Work Phone: [facility] 01-08-2022 14:00-0500 Systolic blood pressure 159 mm[Hg] Treatment Wstr Work Phone: [facility] 12-30-2021 09:11-0400 Body temperature 97.11 [degF] Treatment Wstr Work Phone: [facility] 12-30-2021 09:11-0400 Diastolic blood pressure 74 mm[Hg] Treatment Wstr Work Phone: [facility] 12-30-2021 09:11-0400 Heart rate 88 /min Treatment Wstr Work Phone: [facility] 12-30-2021 09:11-0400 Systolic blood pressure 143 mm[Hg] Treatment Wstr Work Phone: [facility] 12-18-2021 08:58-0400 Body height 170 cm Teagan Spencer MD Work Phone: [facility] 12-18-2021 08:58-0400 Body temperature 97.2 [degF] Teagan Spencer MD Work Phone: [facility] 12-18-2021 08:58-0400 Body weight 105.46 kg Teagan Spencer MD Work Phone: [facility] 12-18-2021 08:58-0400 Diastolic blood pressure 88 mm[Hg] Teagan Spencer MD Work Phone: [facility] 12-18-2021 08:58-0400 Heart rate 94 /min Teagan Spencer MD Work Phone: [facility] 12-18-2021 08:58-0400 SaO2% (BldA) [Mass fraction] 100 % Teagan Spencer MD Work Phone: [facility] 12-18-2021 08:58-0400 Systolic blood pressure 187 mm[Hg] Teagan Spencer MD Work Phone: [facility] 12-05-2021 13:02-0400 Body weight 103.42 kg Fba Cochran APRN.SALOONKEEPER Work Phone: [facility] 12-05-2021 13:02-0400 Diastolic blood pressure 97 mm[Hg] Fab Cochran APRN.SALOONKEEPER Work Phone: [facility] 12-05-2021 13:02-0400 Heart rate 87 /min Fab Cochran APRN.SALOONKEEPER Work Phone: [facility] 12-05-2021 13:02-0400 Systolic blood pressure 188 mm[Hg] Fab Cochran APRN.SALOONKEEPER Work Phone: [facility] 11-20-2021 15:45-0400 Body height 169.4 cm Respiratory Wstr Work Phone: [facility] 11-20-2021 15:45-0400 Body weight 108.86 kg Respiratory Wstr Work Phone: [facility] 10-15-2021 12:23-0400 Body temperature 98.71 [degF] Sha Ray APRN.SALOONKEEPER Work Phone: [facility] 10-15-2021 12:23-0400 Body weight 104.33 kg Sha Ray APRN.SALOONKEEPER Work Phone: [facility] 10-15-2021 12:23-0400 Diastolic blood pressure 68 mm[Hg] Sha Ray PLISSE MACHINE OPERATOR HELPER.SALOONKEEPER Work Phone: [facility] 10-15-2021 12:23-0400 Heart rate 90 /min Sha Ray PLISSE MACHINE OPERATOR HELPER.SALOONKEEPER Work Phone: [facility] 10-15-2021 12:23-0400 Respiratory rate 16 /min Sha Ray PLISSE MACHINE OPERATOR HELPER.SALOONKEEPER Work Phone: [facility] 10-15-2021 12:23-0400 SaO2% (BldA) [Mass fraction] 96 % Sha Ray PLISSE MACHINE OPERATOR HELPER.SALOONKEEPER Work Phone: [facility] 10-15-2021 12:23-0400 Systolic blood pressure 136 mm[Hg] Sha Ray PLISSE MACHINE OPERATOR HELPER.SALOONKEEPER Work Phone: [facility] 10-02-2021 16:07-0400 Body weight 106.78 kg Rojelio Clark MD Work Phone: [facility] 10-02-2021 16:07-0400 Diastolic blood pressure 69 mm[Hg] Rojelio Clark MD Work Phone: [facility] 10-02-2021 16:07-0400 Heart rate 95 /min Rojelio Clark MD Work Phone: [facility] 10-02-2021 16:07-0400 SaO2% (BldA) [Mass fraction] 98 % Rojelio Clark MD Work Phone: [facility] 10-02-2021 16:07-0400 Systolic blood pressure 157 mm[Hg] Rojelio Clark MD Work Phone: [facility] 09-14-2021 09:43-0400 Body weight 104.78 kg Ignacio Cheatham MD Work Phone: [facility] 09-14-2021 09:43-0400 Diastolic blood pressure 72 mm[Hg] Ignacio Cheatham MD Work Phone: [facility] 09-14-2021 09:43-0400 Heart rate 88 /min Ignacio Cheatham MD Work Phone: [facility] 09-14-2021 09:43-0400 Systolic blood pressure 138 mm[Hg] Ignacio Cheatham MD Work Phone: [facility] 08-26-2021 16:10-0400 Diastolic blood pressure 82 mm[Hg] Jonathan Valenzuela MD Work Phone: [facility] 08-26-2021 16:10-0400 Heart rate 85 /min Jonathan Valenzuela MD Work Phone: [facility] 08-26-2021 16:10-0400 Systolic blood pressure 142 mm[Hg] Jonathan Valenzuela MD Work Phone: [facility] 08-26-2021 16:03-0400 Body height 172.7 cm Jonathan Valenzuela MD Work Phone: [facility] 08-26-2021 16:03-0400 Body weight 104.78 kg Jonathan Valenzuela MD Work Phone: [facility] 08-26-2021 16:03-0400 Respiratory rate 16 /min Jonathan Valenzuela MD Work Phone: [facility] 08-26-2021 16:03-0400 SaO2% (BldA) [Mass fraction] 100 % Jonathan Valenzuela MD Work Phone: [facility] 08-12-2021 15:01-0400 Body weight 102.51 kg Jonathan Valenzuela MD Work Phone: [facility] 08-12-2021 15:01-0400 Diastolic blood pressure 92 mm[Hg] Jonathan Valenzuela MD Work Phone: [facility] 08-12-2021 15:01-0400 Heart rate 101 /min Jonathan Valenzuela MD Work Phone: [facility] 08-12-2021 15:01-0400 Respiratory rate 18 /min Jonathan Valenzuela MD Work Phone: [facility] 08-12-2021 15:01-0400 SaO2% (BldA) [Mass fraction] 97 % Jonathan Valenzuela MD Work Phone: [facility] 08-12-2021 15:01-0400 Systolic blood pressure 140 mm[Hg] Jonathan Valenzuela MD Work Phone: [facility] 08-01-2021 14:38-0400 Diastolic blood pressure 86 mm[Hg] Fab Cochran APRN.SALOONKEEPER Work Phone: [facility] 08-01-2021 14:38-0400 Systolic blood pressure 142 mm[Hg] Fab Cochran APRN.SALOONKEEPER Work Phone: [facility] 08-01-2021 13:49-0400 Body weight 101.15 kg Fab Cochran APRN.SALOONKEEPER Work Phone: [facility] 08-01-2021 13:49-0400 Heart rate 85 /min Fab Cochran APRN.SALOONKEEPER Work Phone: [facility] 07-30-2021 14:15-0400 Body weight 101.15 kg Ignacio Cheatham MD Work Phone: [facility] 07-30-2021 14:15-0400 Diastolic blood pressure 60 mm[Hg] Ignacio Cheatham MD Work Phone: [facility] 07-30-2021 14:15-0400 Heart rate 89 /min Ignacio Cheatham MD Work Phone: [facility] 07-30-2021 14:15-0400 Respiratory rate 16 /min Ignacio Cheatham MD Work Phone: [facility] 07-30-2021 14:15-0400 SaO2% (BldA) [Mass fraction] 98 % Ignacio Cheatham MD Work Phone: [facility] 07-30-2021 14:15-0400 Systolic blood pressure 110 mm[Hg] Ignacio Cheatham MD Work Phone: [facility] 07-29-2021 22:32-0400 Diastolic blood pressure 76 mm[Hg] [facility] Work Phone: 07-29-2021 22:32-0400 Systolic blood pressure 149 mm[Hg] [facility] Work Phone: 07-29-2021 21:08-0400 Heart rate 102 /min [facility] Work Phone: 07-29-2021 20:52-0400 Body height 172.72 cm [facility] Work Phone: 07-29-2021 20:52-0400 Body mass index (BMI) [Ratio] 34.9 kg/m2 [facility] Work Phone: 07-29-2021 20:52-0400 Body temperature 98.2 [degF] [facility] Work Phone: 07-29-2021 20:52-0400 Body weight 104.32 kg [facility] Work Phone: 07-29-2021 20:52-0400 Respiratory rate 15 /min [facility] Work Phone: 07-29-2021 20:52-0400 SaO2% (BldA) [Mass fraction] 97 % [facility] Work Phone: 07-03-2021 12:47-0400 Body height 172.7 cm Latricia Deleon [facility] 07-03-2021 12:47-0400 Body weight 104.33 kg Latricia Deleon [facility] 07-03-2021 11:04-0400 Body height 172.7 cm [facility] Work Phone: [facility] 07-03-2021 11:04-0400 Body temperature 97.2 [degF] [facility] Work Phone: [facility] 07-03-2021 11:04-0400 Body weight 104.33 kg [facility] Work Phone: [facility] 07-03-2021 11:04-0400 Diastolic blood pressure 80 mm[Hg] [facility] Work Phone: [facility] 07-03-2021 11:04-0400 Heart rate 91 /min [facility] Work Phone: [facility] 07-03-2021 11:04-0400 SaO2% (BldA) [Mass fraction] 99 % [facility] Work Phone: [facility] 07-03-2021 11:04-0400 Systolic blood pressure 175 mm[Hg] [facility] Work Phone: [facility] 07-03-2021 09:47-0400 Body height 172.7 cm [facility] Work Phone: [facility] 07-03-2021 09:47-0400 Body temperature 97.2 [degF] [facility] Work Phone: [facility] 07-03-2021 09:47-0400 Body weight 104.33 kg [facility] Work Phone: [facility] 07-03-2021 09:47-0400 Diastolic blood pressure 80 mm[Hg] [facility] Work Phone: [facility] 07-03-2021 09:47-0400 Heart rate 91 /min [facility] Work Phone: [facility] 07-03-2021 09:47-0400 SaO2% (BldA) [Mass fraction] 99 % [facility] Work Phone: [facility] 07-03-2021 09:47-0400 Systolic blood pressure 175 mm[Hg] [facility] Work Phone: [facility] 06-28-2021 09:59-0400 Body height 172.2 cm Rojelio Clark MD Work Phone: [facility] 06-28-2021 09:59-0400 Body weight 102.51 kg Rojelio Clark MD Work Phone: [facility] 06-28-2021 09:59-0400 Diastolic blood pressure 57 mm[Hg] Rojelio Clark MD Work Phone: [facility] 06-28-2021 09:59-0400 Heart rate 83 /min Rojelio Clark MD Work Phone: [facility] 06-28-2021 09:59-0400 Respiratory rate 16 /min Rojelio Clark MD Work Phone: [facility] 06-28-2021 09:59-0400 SaO2% (BldA) [Mass fraction] 99 % Rojelio Clark MD Work Phone: [facility] 06-28-2021 09:59-0400 Systolic blood pressure 137 mm[Hg] Rojelio Clark MD Work Phone: [facility] 06-26-2021 15:46-0400 Body weight 102.97 kg Ignacio Cheatham MD Work Phone: [facility] 06-26-2021 15:46-0400 Diastolic blood pressure 86 mm[Hg] Ignacio Cheatham MD Work Phone: [facility] 06-26-2021 15:46-0400 Heart rate 88 /min Ignacio Cheatham MD Work Phone: [facility] 06-26-2021 15:46-0400 Systolic blood pressure 154 mm[Hg] Ignacio Cheatham MD Work Phone: [facility] 06-03-2021 17:30-0400 Respiratory rate 20 /min Stacy Bogner PA-C Work Phone: [facility] 06-03-2021 14:59-0400 Body temperature 96.69 [degF] Stacy Bogner PA-C Work Phone: [facility] 06-03-2021 14:59-0400 Body weight 101.7 kg Stacy Bogner PA-C Work Phone: [facility] 06-03-2021 14:59-0400 Diastolic blood pressure 68 mm[Hg] Stacy Bogner PA-C Work Phone: [facility] 06-03-2021 14:59-0400 Heart rate 86 /min Stacy Bogner PA-C Work Phone: [facility] 06-03-2021 14:59-0400 SaO2% (BldA) [Mass fraction] 100 % Stacy Bogrosenda PA-C Work Phone: [facility] 06-03-2021 14:59-0400 Systolic blood pressure 138 mm[Hg] Stacy Bogner PA-C Work Phone: [facility] Encounters Encounter Date Encounter Type Care Provider Facility Start: 10-28-2024 End: 10-28-2024 Telephone encounter Gloria Fried RN Work Phone: [facility] Comment on above: Home Care (ROCK CRUSHER OPERATOR order 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 [facility] Work Phone: Start: 10-25-2024 ambulatory Romie Dalton Facility:[facility] Start: 10-25-2024 Non-patient / Non-visit Dr. Romie ibanez MD -[facility] Start: 10-25-2024 End: 10-25-2024 Telephone encounter Audra Simon RN Work Phone: [facility] Comment on above: Home Care Start: 10-25-2024 Non-patient / Non-visit Dr. [facility] Work Phone: Start: 10-24-2024 ambulatory Mone Riggs Facility:[facility] Start: 10-24-2024 End: 10-26-2024 Evaluation and management of inpatient Dr. Mone Riggs MD -Progressive Care Unit Work Phone: Start: 10-21-2024 End: 10-21-2024 Telephone encounter Adelina Cortez Work Phone: [facility] Comment on above: [facility] (Confirmat ion Call /) Home Care (SOC delay request / APPROVAL NEEDED) Start: 10-20-2024 End: 10-20-2024 Office outpatient visit 25 minutes Sury Gonzalez PLISSE MACHINE OPERATOR HELPER.SALOONKEEPER Work Phone: [facility] Comment on above: ESRD (end stage edgar l disease) on dialysis (HCC) (Primary Dx); Chronic obstructive pulmonary disease with acute lower respiratory infection (HCC); Primary hypertension; Bacterial pneumonia; Chronic midline low back pain without sciatica; Chronic respiratory failure with hypoxia (HCC); Screening for depression; Seasonal allergic rhinitis, unspecified trigger Start: 10-20-2024 End: 10-20-2024 ambulatory SURY GONZALEZ Facility:[facility] Start: 10-20-2024 End: 10-21-2024 Telephone encounter Alondra Chung APRN.SALOONKEEPER Work Phone: Neurology Start: 10-13-2024 Non-patient / Non-visit Dr. Rupal Shepard MD [facility] Work Phone: Start: 10-12-2024 Non-patient / Non-visit Dr. Rupal Shepard MD [facility] Work Phone: Start: 10-11-2024 Non-patient / Non-visit Dr. Rupal Shepard MD [facility] Work Phone: Start: 10-10-2024 ambulatory Hipolito Shepard Fac ility:[facility] Start: 10-10-2024 End: 10-13-2024 Evaluation and management of inpatient Dr. Son Hallman DO -Progressive Care Unit Work Phone: Start: 09-26-2024 End: 09-28-2024 Refill Alondra Chung APRN.SALOONKEEPER Work Phone: Neurology Comment on above: Refill Request Start: 09-19-2024 End: 09-22-2024 Telephone encounter Alondra Chung APRN.SALOONKEEPER Work Phone: Neurology Comment on above: Insurance Authorizat ion Start: 09-12-2024 End: 09-12-2024 Patient encounter procedure Liz Ferreira MD Work Phone: Pulmonary Medicine Comment on above: Lung nodules (Primar y Dx); Mild intermittent asthma without complication (HCC); ESRD (end stage renal disease) on dialysis (HCC) Start: 09-12-2024 End: 09-12-2024 ambulatory LIZ FERREIRA Facility:[facility] Start: 09-10-2024 End: 09-15-2024 Refill Alondra Chung APRN.SALOONKEEPER Work Phone: Neurology Comment on above: Refill Request Start: 09-07-2024 End: 09-07-2024 Telephone encounter Ignacio Cheatham MD Work Phone: [facility] [place] Comment on above: Breathing Problem Start: 09-06-2024 End: 09-06-2024 Emergency department patient visit Dr. Ignacio Cheatham MD Work Phone: -Emergency Department Work Phone: Start: 09-06-2024 End: 09-06-2024 Telephone encounter Ignacio Cheatham MD Work Phone: [facility] [place] Comment on above: FYI-No Action Needed Start: 08-26-2024 End: 08-26-2024 ambulatory IGNACIO CHEATHAM Facility:[facility] Start: 08-24-2024 Registered Recurring Tresa Marcum PRODUCT TECHNOLOGY SCIENTIST-C -Physical Therapy Work Phone: Start: 08-24-2024 End: 08-24-2024 Telephone encounter Chloe Ellington RN [facility] Start: 08-22-2024 End: 08-22-[address] Ignacio Cheatham MD Work Phone: -Physical Therapy Start: 08-22-2024 End: 08-22-2024 Discharged Recurring Tresa Marcum PRODUCT TECHNOLOGY SCIENTIST-C -Physical Therapy Work Phone: Start: 08-12-2024 End: 08-15-2024 Telephone encounter Saira [...] 08-04-2024 End: 08-04-2024 Telephone encounter Efra Galarza APRN.SALOONKEEPER Work Phone: [facility] [place] Comment on above: No Show (Missed #1) Start: 08-01-2024 End: 08-02-2024 Telephone encounter Ignacio Cheatham MD Work Phone: [facility] Comment on above: Insurance Authorizat ion ([employer]) Start: 07-29-2024 End: 09-28-2024 Follow-up encounter Tresa Marcum APRN.SALOONKEEPER Work Phone: [facility] Comment on above: Results - Ct Start: 07-29-2024 End: 08-01-2024 Telephone encounter Alondra Chung APRN.SALOONKEEPER Work Phone: Neurology Comment on above: Patient Question Start: 07-28-2024 End: 08-03-2024 Telephone encounter Saira Jackson DO Work Phone: Vascular Surgery Comment on above: Results Start: 07-27-2024 End: 07-27-2024 ambulatory SAIRA JACKSON Facility:[facility] Start: 07-27-2024 End: 07-27-2024 Subsequent hospital visit by physician Ct [facility] Wstr (I-Stat) Work Phone: Cat Scan Comment on above: Lung nodules [R91.8] Start: 07-11-2024 End: 07-11-2024 ambulatory GEGE MCCRARY Facility:[facility] Start: 07-11-2024 End: 07-11-2024 Patient encounter procedure Gege Mccrary OD Work Phone: Ophthalmology Comment on above: Type 2 diabetes dion itus with stable proliferative retinopathy of both eyes, with long-term current use of insulin (HCC) (Primary Dx); Presbyopia; Pseudophakia of both eyes Start: 07-06-2024 End: 07-06-2024 Patient encounter procedure Trinidad Frazier APRN.SALOONKEEPER Work Phone: Endocrinology Comment on above: Diabetes mellitus tr eated with injections of non-insulin medication (HCC) (Primary Dx); Type 2 diabetes, controlled, with neuropathy (HCC) Start: 07-06-2024 End: 07-07-2024 Telephone encounter Trinidad Frazier APRN.SALOONKEEPER Work Phone: Endocrinology Comment on above: 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) Start: 07-04-2024 End: 07-04-2024 ambulatory ALONDRA JULIET Facility:[facility] Start: 06-08-2024 End: 06-08-2024 Refill Tresa Marcum APRN.SALOONKEEPER Work Phone: [facility] [place] Comment on above: Refill Request Start: 06-01-2024 End: 06-01-2024 ambulatory TRESA MARCUM Facility:[facility] Start: 06-01-2024 End: 06-01-2024 Office outpatient visit 25 minutes Tresa Marcum APRN.SALOONKEEPER Work Phone: [facility] [facility] Comment on above: Type 2 diabetes, con [...] Telephone encounter Ignacio Cheatham MD Work Phone: [facility] Comment on above: Orders Start: 04-19-2024 End: 05-20-2024 ambulatory Ignacio Cheatham MD Work Phone: [facility] Start: 04-15-2024 End: 04-15-2024 ambulatory IGNACIO CHEATHAM Facility:[facility] Start: 04-15-2024 End: 04-15-2024 Office outpatient visit 25 minutes Sha Ray APRN.SALOONKEEPER Work Phone: [facility] Comment on above: Dental decay (Primar y Dx) Start: 04-06-2024 End: 08-16-2024 Telephone encounter Anat Lopez APRN.SALOONKEEPER Work Phone: [facility] Start: 04-02-2024 End: 04-02-2024 Emergency department patient visit [facility] Facility:[facility] Start: 03-30-2024 End: 04-08-2024 Telephone encounter Ignacio Cheatham MD Work Phone: [facility] Comment on above: Patient Update Start: 03-28-2024 End: 03-28-2024 ambulatory No Pcp PLISSE MACHINE OPERATOR HELPER [facility] [place] Start: 03-28-2024 End: 03-28-2024 Patient encounter procedure No Pcp PLISSE MACHINE OPERATOR HELPER [facility] [place] Start: 03-25-2024 End: 03-25-2024 ambulatory IGNACIO CHEATHAM Facility:[facility] Start: 03-25-2024 End: 03-25-2024 Patient encounter procedure Ignacio Cheatham MD Work Phone: [facility] Comment on above: TIA (transient ische eduardo [...] Telephone encounter Ignacio Cheatham MD Work Phone: [facility] Comment on above: Medicaid Program For Start: 03-18-2024 ambulatory Emerson Saldaña Facility:[facility] Start: 03-17-2024 End: 03-18-2024 ambulatory Hipolito Shepard Facility:[facility] Start: 03-04-2024 End: 03-04-2024 Telephone encounter Saira Jackson DO Work Phone: Vascular Surgery Start: 02-09-2024 End: 02-09-2024 ambulatory SAIRA JACKSON Facility:[facility] Start: 02-09-2024 End: 02-09-2024 Patient encounter procedure Saira Jackson DO Work Phone: Vascular Surgery Comment on above: Stenosis of arteriov enous graft, 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HCC) (Primary Dx); ESRD (end stage renal disease) (HCC) Start: 01-21-2024 End: 01-22-2024 Telephone encounter Ignacio Cheatham MD Work Phone: [facility] Comment on above: Forms Start: 01-20-2024 End: 01-20-2024 E-mail encounter from caregiver Yana Duque formerly [facility] Work Phone: [facility] Start: 01-20-2024 End: 01-20-2024 Patient encounter procedure Yana Duque formerly [facility] Work Phone: [facility] Comment on above: Virtual visit with barrett harmacist Start: 01-18-2024 End: 02-16-2024 Telephone encounter Ignacio Cheatham MD Work Phone: [facility] Comment on above: Referral Request Start: 01-12-2024 End: 01-18-2024 Telephone encounter Sha Myrick MD Work Phone: [facility] [place] Comment on above: Results Start: 01-04-2024 End: 01-05-2024 ambulatory IGNACIO MEYERSO Facility:[facility] Start: 12-31-2023 End: 01-07-2024 Chart [facility] Work Phone: Neurology Start: 12-25-2023 End: 12-25-2023 ambulatory IGNACIO CHEATHAM Facility:[facility] Start: 12-25-2023 End: 12-25-2023 Patient encounter procedure Ignacio Cheatham MD Work Phone: [facility] [place] Comment on above: Type 2 diabetes, con trolled, with neuropathy ([facility]) (Primary Dx); Primary hypertension; Mixed hyperlipidemia; CASSIE (obstructive sleep apnea); ESRD (end stage renal disease) ([facility]); Proliferative diabetic retinopathy associated with type 2 diabetes mellitus, unspecified laterality, unspecified proliferative retinopathy type (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); Personal history of DVT (deep vein thrombosis) Start: 12-21-2023 End: 12-21-2023 Patient encounter procedure Dorene Murillo MD Work Phone: [facility] Comment on above: Closed complex fract ure of right tibia with nonunion (Primary Dx); Primary osteoarthritis of left knee Start: 12-21-2023 End: 12-21-2023 ambulatory DORENE MURILLO Facility:[facility] Start: 12-11-2023 End: 12-11-2023 Office outpatient visit 25 minutes Tresa Marcum APRN.CNP Work Phone: [facility] [place] Comment on above: Pathological fractur e of both tibia and fibula of right lower extremity due to other disease with delayed healing, subsequent encounter (Primary Dx); Anxiety; ESRD (end stage renal disease) ([facility]); Dental infection; Neuropathy; Mixed hyperlipidemia; Encounter for immunization; Type 2 diabetes mellitus with stage 4 chronic kidney disease, without long-term current use of insulin ([facility]); Gastroesophageal reflux disease, unspecified whether esophagitis present; CASSIE (obstructive sleep apnea) Start: 12-11-2023 End: 12-11-2023 ambulatory TRESA MARCUM Facility:[facility] Start: 12-07-2023 End: 12-07-2023 Telephone encounter Tresa Marcum APRN.CNP Work Phone: [facility] Comment on above: Appointment Start: 11-02-2023 End: 11-03-2023 Emergency department patient visit Minh Arroyo Facility:[facility] Start: 10-31-2023 End: 10-31-2023 Emergency department patient visit Sylvester Winston Facility:[facility] Start: 09-18-2023 Telephone encounter Dorene mayes MD Work Phone: [facility] Comment on above: Orders Start: 09-14-2023 End: 09-14-2023 Patient encounter procedure Dorene Murillo MD Work Phone: [facility] Comment on above: Closed complex fract ure of right tibia with nonunion (Primary Dx) Start: 09-14-2023 End: 09-14-2023 ambulatory DORENE MURILLO Facility:[facility] Start: 08-17-2023 End: 08-17-2023 Patient encounter procedure Dorene Murillo MD Work Phone: [facility] Comment on above: Closed complex fract ure of right tibia with nonunion (Primary Dx) Start: 08-17-2023 End: 08-17-2023 ambulatory DORENE MURILLO Facility:[facility] Start: 07-28-2023 Telephone encounter Dorene mayes MD Work Phone: [facility] Comment on above: Infection; Appointme nt Start: 07-13-2023 Refill Dorene joshi MD Work Phone: [facility] Comment on above: Refill Request Start: 07-10-2023 Refill Dorene joshi MD Work Phone: [facility] Comment on above: Orders; Refill Reque st Start: 07-06-2023 End: 07-06-2023 Patient encounter procedure Dorene Murillo MD Work Phone: [facility] Comment on above: Closed complex fract ure of right tibia with nonunion (Primary Dx) Start: 07-02-2023 End: 07-02-2023 ambulatory [facility] Work Phone: Start: 07-02-2023 End: 07-02-2023 Patient encounter procedure [facility] Work Phone: Start: 06-30-2023 Telephone encounter Dorene mayes MD Work Phone: [facility] Comment on above: Orders Start: 06-30-2023 Registered Referred [facility] Spec[facility] Work Phone: Start: 06-29-2023 End: 06-30-2023 Emergency department patient visit [facility] Work Phone: Start: 06-29-2023 Refill Dorene joshi MD Work Phone: [facility] Comment on above: Refill Request Start: 06-24-2023 Telephone encounter Ignacio Cheatham MD Work Phone: [facility] Comment on above: [place] [employer] Screen Operator Start: 06-18-2023 Telephone encounter Dorene mayes MD Work Phone: [facility] Comment on above: Appointment Start: 06-12-2023 Telephone encounter Sylvester baptiste MD Work Phone: [facility] Comment on above: Requesting apt for p t Start: 06-10-2023 Telephone encounter Reagan mejia MD Work Phone: Orthopaedics Comment on above: Patient Update Start: 06-09-2023 End: 06-09-2023 Emergency department patient visit [facility] Work Phone: Start: 06-08-2023 Telephone encounter Ignacio Cheatham MD Work Phone: [facility] Comment on above: FYI Start: 06-04-2023 End: 06-04-2023 Emergency department patient visit [facility] Work Phone: Start: 05-20-2023 Telephone encounter Ignacio Cheatham MD Work Phone: [facility] Comment on above: Patient Update Start: 05-15-2023 End: 05-15-2023 Patient encounter procedure Frank Gerard Work Phone: Podiatry Comment on above: Ingrowing toenail of right foot (Primary Dx); Neuropathy; Type 2 diabetes, controlled, with neuropathy (HCC); Open wound of toe of right foot; Diminished pulses in lower extremity; Hammertoe, bilateral Start: 05-13-2023 ambulatory Ignacio Cheatham MD Work Phone: Internal [facility] [place] Start: 05-01-2023 End: 05-01-2023 Patient encounter procedure Gege Mccrary OD Work Phone: Ophthalmology Comment on above: Type 2 diabetes dion itus with stable proliferative retinopathy of both eyes, with long-term current use of insulin (HCC) (Primary Dx); Presbyopia; Pseudophakia of both eyes Start: 04-14-2023 Telephone encounter Ignacio Cheatham MD Work Phone: [facility] Comment on above: Patient Question Start: 04-06-2023 Telephone encounter Ignacio Cheatham MD Work Phone: [facility] Comment on above: Results Start: 04-03-2023 End: 04-03-2023 Subsequent hospital visit by physician Ct [facility] (I-Stat) Work Phone: Cat Scan Comment on above: Lung nodules [R91.8] Start: 03-17-2023 End: 03-17-2023 Subsequent hospital visit by physician Xr [facility] [place] Work Phone: Radiology Comment on above: Foot pain, right [M7 9.671] Start: 03-09-2023 End: 03-09-2023 Emergency department patient visit Dr. Ignacio Cheatham Work Phone: [facility] Work Phone: Start: 03-04-[address] Viky Cheatham Work Phone: [facility] Start: 02-25-[address] Viky Cheatham Work Phone: [facility] Start: 02-18-[address] Viky Cheatham Work Phone: [facility] Start: 02-11-[address] Viky Cheatham Work Phone: [facility] Start: 02-09-[address] Viky Cheatham Work Phone: [facility] Start: 02-04-2023 End: 02-04-2023 Emergency department patient visit Dr. Ignacio Cheatham Work Phone: [facility] Work Phone: Start: 02-04-[address] Viky Cheatham Work Phone: [facility] Start: 01-29-2023 Non-patient / Non-visit Dr. Lance Cheatham Work Phone: [facility] Work Phone: Start: 01-28-2023 Non-patient / Non-visit Dr. Lance Cheatham Work Phone: [facility] Work Phone: Start: 01-27-2023 Telephone encounter Rojelio Monsalve i, MD Work Phone: Endocrinology Comment on above: PA--TRULICITY Start: 01-27-2023 Non-patient / Non-visit Dr. Lance Cheatham Work Phone: [facility] Work Phone: Start: 01-26-2023 Non-patient / Non-visit Dr. Lance Cheatham Work Phone: [facility] Work Phone: Start: 01-26-2023 Refill Rojelio Clark MD Work Phone: Endocrinology Comment on above: Refill Request Start: 01-25-2023 Non-patient / Non-visit Dr. Lance Cheatham Work Phone: [facility] Work Phone: Start: 01-24-2023 Non-patient / Non-visit Dr. Lance Cheatham Work Phone: [facility] Work Phone: Start: 01-23-2023 Non-patient / Non-visit Dr. Lance Cheatham Work Phone: [facility] Work Phone: Start: 01-22-2023 Non-patient / Non-visit Dr. Lance Cheatham Work Phone: [facility] Work Phone: Start: 01-22-2023 End: 01-22-2023 Non-patient / Non-visit Dr. Ignacio Cheatham Work Phone: [facility] Work Phone: Start: 01-21-2023 Non-patient / Non-visit Dr. Lance Cheatham Work Phone: [facility] Work Phone: Start: 01-20-2023 Non-patient / Non-visit Dr. Lance Cheatham Work Phone: [facility] Work Phone: Start: 01-20-2023 End: 01-20-2023 Non-patient / Non-visit Dr. Ignacio Cheatham Work Phone: [facility] Work Phone: Start: 01-19-2023 End: 01-19-2023 Non-patient / Non-visit Dr. Ignacio Cheatham Work Phone: [facility] Work Phone: Start: 01-19-2023 End: 01-29-2023 Evaluation and management of inpatient Dr. Ignacio Cheatham Work Phone: [facility] Work Phone: Start: 01-19-2023 Non-patient / Non-visit Dr. Lance Cheatham Work Phone: [facility] Work Phone: Start: 01-15-2023 Telephone encounter Ignacio Cheatham MD Work Phone: [facility] Comment on above: Pt going to [facility] ER Start: 01-15-2023 Non-patient / Non-visit Dr. Lance Cheatham Work Phone: [facility] Start: 01-15-2023 End: 01-15-2023 Emergency department patient visit Dr. Ignacio Cheatham Work Phone: [facility] Work Phone: Start: 01-13-2023 End: 01-13-2023 Emergency department patient visit Dr. 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); Stress fracture of right tibia with routine healing, subsequent encounter Start: 12-15-2022 End: 12-15-2022 Subsequent hospital visit by physician Xr [facility] Work Phone: Radiology Comment on above: Stress fracture of r ight tibia, initial encounter [M84.361A] Start: 12-12-2022 ambulatory Reagan Riggs MD Work Phone: Orthopaedics Comment on above: X-ray Start: 12-10-2022 Orders Only Reagan Riggs MD Work Phone: Orthopaedics Comment on above: Stress fracture of r ight tibia, 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Primary Dx) Start: 11-24-2022 ambulatory Ignacio Cheatham MD Work Phone: [facility] [place] Comment on above: Short Term Paperwork Start: 11-24-2022 Telephone encounter Reagan mejia MD Work Phone: Orthopaedics Comment on above: Short term disabilit y paperwork Start: 11-20-2022 Telephone encounter Mackenzie Zamora APRN.SALOONKEEPER Work Phone: [facility] Start: 11-19-2022 ambulatory Ignacio Cheatham MD Work Phone: Family [facility] [place] Comment on above: Lyrica Start: 11-19-2022 End: 11-19-2022 Patient encounter procedure Kimberli Saleem PLISSE MACHINE OPERATOR HELPER.SALOONKEEPER Work Phone: [facility] Comment on above: Dysuria (Primary Dx) Start: 11-18-2022 Telephone encounter Ignacio Cheatham MD Work Phone: [facility] [place] Comment on above: Erroneous encounter- disregard Start: 11-17-2022 Telephone encounter Ignacio Cheatham MD Work Phone: [facility] [place] Comment on above: [facility] Home [facility], PT (d/c pt on 11/14/22) Start: 11-14-2022 Telephone encounter Ignacio Cheatham MD Work Phone: [facility] [place] Comment on above: Short Term Disabiity Forms Start: 11-10-2022 End: 11-10-2022 Subsequent hospital visit by physician Joni [facility] [place] [facility] Work Phone: Radiology Comment on above: Pain of right lower extremity [M79.604] Start: 11-10-2022 Telephone encounter Brooke lópez PLISSE MACHINE OPERATOR HELPER.SALOONKEEPER Work Phone: Family [facility] [place] Comment on above: Patient Update Start: 11-10-2022 End: 11-10-2022 Patient encounter procedure Reagan Riggs MD Work Phone: Orthopaedics Comment on above: Stress fracture of r ight tibia, 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Primary Dx); Pain of right lower extremity Start: 11-07-2022 End: 11-07-2022 Patient encounter procedure Brooke Manning APRN.SALOONKEEPER Work Phone: Family [facility] [place] Comment on above: Neuropathy of hand, unspecified laterality (Primary Dx); Encounter for drug screening Start: 11-01-2022 Telephone encounter Ignacio Cheatham MD Work Phone: Internal Medicine [place] Comment on above: Patient Update Start: 10-30-2022 Non-patient / Non-visit Dr. Lance Cheatham Work Phone: [facility] Start: 10-30-2022 End: 10-30-2022 Emergency department patient visit Dr. [facility] Start: 10-20-2022 End: 10-20-2022 Patient encounter procedure Ignacio Cheatham MD Work Phone: [facility] [place] Comment on above: Pain of right lower extremity (Primary Dx); Mixed hyperlipidemia; Abnormal x-ray; Lumbar radiculopathy; Primary hypertension; Type 2 diabetes, controlled, with neuropathy (HCC); End stage renal disease (HCC); Anxiety Start: 10-16-2022 Telephone encounter Ignacio Cheatham MD Work Phone: [facility] [place] Comment on above: [facility] Start: 10-15-2022 End: 10-15-2022 Emergency department patient visit Dr. Ignacio Cheatham [facility] Start: 10-14-2022 ambulatory Ignacio Cheatham MD Work Phone: [facility] [place] Comment on above: 10/15 visit Refill Request Start: 10-09-2022 Telephone encounter Ignacio Cheatham MD Work Phone: Family Medicine [place] Comment on above: Home Health Physical Therapy Order Request Start: 09-29-2022 [facility] Comment on above: Return Call Request (Kidney Txp Evaluation Status) Start: 09-24-2022 End: 09-24-[address] Ignacio Cheatham Work Phone: [facility] Work Phone: Start: 09-24-2022 End: 09-24-[address] Ignacio Cheatham Work Phone: [facility] Start: 09-24-[address] Viky Cheatham Work Phone: [facility] Start: 09-19-2022 End: 09-19-[address] Ignacio Cheatham Work Phone: [facility] Work Phone: Start: 09-19-2022 End: 09-19-[address] Ignacio Cheatham Work Phone: [facility] Start: 09-19-[address] Viky Cheatham Work Phone: [facility] Start: 09-18-2022 Telephone encounter Tyler hernandez DO Work Phone: Hematology/Oncology Comment on above: Appointment Start: 09-17-2022 End: 09-17-[address] Ignacio Cheatham Work Phone: [facility] Work Phone: Start: 09-17-2022 End: 09-17-[address] Ignacio Cheatham Work Phone: [facility] Start: 09-17-[address] Viky Cheatham Work Phone: [facility] Start: 09-16-2022 Telephone encounter Dialysis Kid [facility] Comment on above: Dialysis CKD Follow Up (Optim al Transition Program); Patient Update Start: 09-15-2022 End: 09-15-[address] Ignacio Cheatham Work Phone: [facility] Work Phone: Start: 09-15-2022 End: 09-15-[address] Ignacio Cheatham Work Phone: [facility] Start: 09-15-[address] iVky Cheatham Work Phone: [facility] Start: 09-12-2022 Non-patient / Non-visit Dr. 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 Lance Cheatham Work Phone: [facility] Work Phone: Start: 09-10-2022 Refill Rojelio Clark MD Work Phone: Endocrinology Comment on above: Refill Request Start: 09-10-2022 Telephone encounter Fab sibley APRN.SALOONKEEPER Work Phone: Kidney [facility] Comment on above: [place] [employer] CKD (chronic kidney disease) stage 5, GFR less than 15 ml/min (HCC) (Primary Dx); Anemia of renal disease; Hyperkalemia; Metabolic acidosis; Hypocalcemia Start: 09-10-2022 End: 09-12-2022 Evaluation and management of inpatient Dr. Ignacio Cheatham [facility] Work Phone: Start: 09-10-2022 End: 09-12-[address] Ignacio Cheatham Work Phone: [facility] Work Phone: Start: 09-10-2022 Non-patient / Non-visit Dr. Lance Cheatham Work Phone: [facility] [facility] Work Phone: Start: 09-09-2022 End: 09-09-2022 Patient encounter procedure Ignacio Cheatham MD Work Phone: Family [facility] [place] Comment on above: Inability to ambulat e due to multiple joints (Primary Dx); Superficial phlebitis of right leg; Type 2 diabetes, controlled, with neuropathy (HCC); Essential hypertension Start: 09-07-2022 End: 09-07-2022 Emergency department patient visit [facility] Work Phone: Start: 09-03-2022 ambulatory Kaylin Carranza RN [facility] Start: 09-03-2022 Follow-up encounter [facility] Comment on above: CKD Follow Up (Optim al Transition Program/Prep for Dialysis ) Start: 08-27-2022 Telephone encounter Kaylin [facility] Comment on above: Patient Update ([facility] ular appt) CKD (chronic kidney disease) stage 5, GFR less than 15 ml/min (HCC) (Primary Dx) Start: 08-26-2022 Orders Only Fab Lynn i, APRN.SALOONKEEPER Work Phone: Kidney Medicine Comment on above: Hyperkalemia (Primar y Dx) Start: 08-21-2022 End: 08-21-2022 ambulatory Injection Iam [facility] Work Phone: Hematology/Oncology Comment on above: CKD (chronic kidney disease) Stage 4, GFR 15-29 ml/min (Primary Dx) Start: 08-21-2022 End: 08-21-2022 Subsequent hospital visit by physician Joni [facility] Work Phone: Radiology Comment on above: CKD (chronic kidney disease) stage 5, GFR less than 15 ml/min (HCC) [N18.5] Start: 08-20-2022 Telephone encounter Kaylin [facility] Comment on above: Patient Update (Opti mal Transition Program - Dialysis) Start: 08-18-2022 Telephone encounter Kaylin [facility] Comment on above: Orders Start: 08-11-2022 End: 08-11-2022 Subsequent hospital visit by physician Joni [facility] [place] [facility] Work Phone: Radiology Comment on above: Right elbow pain [M2 5.521] Start: 08-05-2022 Patient Outreach Chrissy Cheng RN Work Phone: Corporate Development Officer Management Comment on above: Transition Of Care ( TCM Initial Hospital Discharge 08/04/2022) Hospital F/U Orders Transition Of Care ( TCM Pharmacy-Hospital discharge 08/04/22) Start: 08-04-2022 ambulatory Goldy Hunter D O Work Phone: Kidney Medicine Comment on above: Short Term Start: 07-31-2022 Telephone encounter Katrin mueller PLISSE MACHINE OPERATOR HELPER.SALOONKEEPER Work Phone: Vascular Surgery Comment on above: Returning Patient's Call; Appointment Start: 07-31-2022 End: 07-31-2022 Patient encounter procedure Sha Ray PLISSE MACHINE OPERATOR HELPER.SALOONKEEPER Work Phone: [facility] Comment on above: Procedure not zina d out (Primary Dx) Start: 07-24-2022 End: 07-24-2022 ambulatory UNKNOWN PROVIDER Facility:[facility] Start: 07-01-2022 ambulatory Goldy Hunter D O Work Phone: Kidney Medicine Comment on above: potassium level Start: 07-01-2022 E-mail encounter devika m caregiver Goldyfrancisca Casassuleiman DO Work Phone: [facility] Start: 06-30-2022 End: 06-30-2022 [facility] [place] [facility] Work Phone: Pre Anesthesia Comment on above: Pre-operative examin ation (Primary Dx); Mild intermittent asthma without complication; Bipolar affective disorder, remission status unspecified (HCC); Anemia, unspecified type; Neuropathy; Gastroesophageal reflux disease, unspecified whether esophagitis present; Type 2 diabetes, controlled, with neuropathy (HCC); H/O gastric bypass; Essential hypertension; Mixed hyperlipidemia; Personal history of DVT (deep vein thrombosis); Hypercoagulable state (HCC); ESRD (end stage renal disease) ([facility]); Pulmonary nodules; Class 2 severe obesity due to excess calories with serious comorbidity and body mass index (BMI) of 36.0 to 36.9 in adult (HCC); Hyperkalemia Start: 06-30-2022 End: 06-30-2022 Preprocedural examination done [facility] [place] [facility] Work Phone: Pre Anesthesia Start: 06-25-2022 Refill Goldy Snyder Work Phone: Kidney Medicine Comment on above: Refill Request Start: 06-24-2022 End: 06-24-2022 Patient encounter procedure Kirsten Euceda PA-C Work Phone: [facility] Comment on above: Acute UTI (Primary D x) Start: 06-20-2022 ambulatory Kaylin Carranza RN [facility] Start: 06-20-2022 Follow-up encounter Kaylin Carranza RN [facility] Comment on above: CKD Follow Up ([facility] ) ESRD (end stage edgar l disease) ([facility]) (Primary Dx) Start: 06-19-2022 Telephone encounter Nikolas Valenzuela MD Work Phone: Vascular Surgery Comment on above: Procedure Start: 06-12-2022 End: 06-12-2022 Patient encounter procedure Dakota Rajput MD Work Phone: Orthopaedics Comment on above: Chronic pain of left knee (Primary Dx); Post-traumatic osteoarthritis of left knee Start: 06-07-2022 Refill Ignacio Cheatham MD Work Phone: Family [facility] [place] Comment on above: Refill Request Start: 05-26-2022 End: 05-26-2022 Patient encounter procedure Goldy Hunter DO Work Phone: Kidney Medicine Comment on above: CKD (chronic kidney disease) stage 5, GFR less than 15 ml/min (HCC) (Primary Dx); Secondary renal hyperparathyroidism (HCC); Primary hypertension; Metabolic acidosis; Hyperlipidemia, unspecified hyperlipidemia type Start: 05-02-2022 Telephone encounter Kaylin Marcus [facility] Comment on above: CKD Follow Up (OTP) Start: 04-29-2022 Refill Ignacio Cheatham MD Work Phone: Family Medicine [place] Comment on above: Refill Request Start: 04-18-2022 [...] 04-10-2022 Subsequent hospital visit by physician Joni [facility] [place] Work Phone: Radiology Comment on above: Chronic pain of left knee [M25.562, G89.29] Screening breast exa mination [Z12.39] Start: 04-05-2022 Telephone encounter Hever Davis APRN.CNP Work Phone: [facility] Comment on above: Results Start: 04-02-2022 End: 04-02-2022 Patient encounter procedure Kirsten Euceda PA-C Work Phone: [facility] Comment on above: Urinary frequency (P rimary Dx) Iron malabsorption ( Primary Dx); Anemia due to stage 4 chronic kidney disease (HCC) Start: 04-02-2022 Telephone encounter Ignacio Cheatham MD Work Phone: Family [facility] [place] Comment on above: FMLA Paperwork ([employer] FMLA paperwork ) Start: 03-27-2022 [facility] Start: 03-25-2022 Orders Only Goldy Snyder [...] disease (HCC) Start: 03-05-2022 Telephone encounter Sha Cj cardona PLISSE MACHINE OPERATOR HELPER.SALOONKEEPER Work Phone: [facility] Comment on above: Results Start: 03-04-2022 End: 03-04-2022 Patient encounter procedure Hever Cheema PLISSE MACHINE OPERATOR HELPER.SALOONKEEPER Work Phone: [facility] Comment on above: Viral URI with cough (Primary Dx) Start: 02-20-2022 End: 02-20-2022 ambulatory Injection Iam [facility] Work Phone: Hematology/Oncology Comment on [...] 02-18-2022 Subsequent hospital visit by physician Xr [facility] [place] Work Phone: Radiology Comment on above: Foot pain, left [M79 .672] Start: 02-18-2022 End: 02-18-2022 Patient encounter procedure Jimmy Rabago APRN.SALOONKEEPER Work Phone: [facility] Comment on above: Foot pain, left (Deandra nivia Dx) Start: 02-06-2022 ambulatory Ignacio Cheatham MD Work Phone: Family Medicine [place] Comment on above: Nausea Start: 02-04-2022 End: 02-04-2022 Patient encounter procedure Goldy Hunter DO Work Phone: Kidney Medicine Comment on above: CKD (chronic kidney disease) stage 4, GFR 15-29 ml/min (HCC) (Primary Dx); Anemia of renal disease; Secondary renal hyperparathyroidism (HCC); Primary hypertension; Hyperlipidemia, unspecified hyperlipidemia type; Metabolic acidosis Start: 01-24-2022 End: 01-24-2022 ambulatory Injection Iam [facility] [employer] Work Phone: Hematology/Oncology Comment on above: CKD (chronic kidney disease) Stage 4, GFR 15-29 ml/min (Primary Dx) Start: 01-13-2022 End: 01-13-2022 ambulatory Treatment Rm 10 Iam [facility] [employer] Work Phone: Hematology/Oncology Comment on above: CKD (chronic kidney disease) Stage 4, GFR 15-29 ml/min (Primary Dx); Iron malabsorption; H/O gastric bypass Start: 01-10-2022 End: 01-10-2022 ambulatory Treatment Rm 3 [facility] [employer] Work Phone: Hematology/Oncology Comment on above: Anemia of renal dise ase (Primary Dx); CKD (chronic kidney disease) Stage 4, GFR 15-29 ml/min; Iron malabsorption; H/O gastric bypass Start: 01-08-2022 End: 01-08-2022 ambulatory Treatment Rm 3 [facility] [employer] Work Phone: Hematology/Oncology Comment on above: CKD (chronic kidney disease) Stage 4, GFR 15-29 ml/min (Primary Dx); Iron malabsorption; H/O gastric bypass Start: 12-30-2021 End: 12-30-2021 ambulatory Treatment Rm 8 [facility] [employer] Work Phone: Hematology/Oncology Comment on above: CKD (chronic kidney disease) Stage 4, GFR 15-29 ml/min (Primary Dx); Iron malabsorption; H/O gastric bypass Start: 12-24-2021 Telephone encounter Kaylin (Dale) Dillon [facility] Kid[facility] Medicine Comment on above: Chronic Kidney Disea se (OTP - monthly touch point call ) Start: 12-19-2021 Get Medical Advice Ignacio Cheatham MD Work Phone: [facility] Comment on above: Refills Results; Treatment P julia Start: 12-18-2021 End: 12-18-2021 ambulatory Teagan Spencer MD Work Phone: Hematology/Oncology Comment on above: Iron malabsorption ( Primary Dx); Anemia due to stage 4 chronic kidney disease (HCC) Start: 12-18-2021 End: 12-18-2021 Patient encounter procedure Teagan Spencer MD Work Phone: [facility] Start: 12-05-2021 End: 12-05-2021 Refill Ignacio Cheatham MD Work Phone: Family [facility] [place] Comment on above: Refill Request Chronic kidney disea se, stage 4, severely decreased GFR (HCC) (Primary Dx); Secondary renal hyperparathyroidism (HCC); Anemia of renal disease; Metabolic acidosis; Essential hypertension; Hyperlipidemia, unspecified hyperlipidemia type; Persistent proteinuria; Type 2 diabetes, controlled, with neuropathy (HCC) Start: 11-27-2021 Orders Only Fab Lynn i, APRN.SALOONKEEPER Work Phone: Kidney Medicine Comment on above: Chronic Kidney Disea se (Monthly Touch Point Call - OTP) Start: 11-25-2021 Refill Rojelio Clark MD Work Phone: Endocrinology Comment on above: Refill Request Start: 11-20-2021 End: 11-20-2021 ambulatory Respiratory Therapist [facility] Work Phone: Pulmonary Medicine Comment on above: Spirometry Start: 11-20-2021 End: 11-20-2021 Patient encounter procedure Respiratory Therapist [facility] Work Phone: [facility] Start: 10-28-2021 End: 10-28-2021 Nursing evaluation of [...] procedure Pulm [facility] [place] Work Phone: [facility] Start: 10-15-2021 End: 10-15-2021 Patient encounter procedure Sha Cory MULLER Work Phone: [place] [facility] Comment on above: Viral illness (Prima ry Dx) Start: 10-02-2021 End: 10-02-2021 Patient encounter procedure Rojelio Clark MD Work Phone: Endocrinology Comment on above: Poorly controlled ty pe 2 diabetes mellitus (HCC) (Primary Dx) Start: 09-30-2021 Telephone encounter Karly Wells RN [facility] Comment on above: Follow Up Start: 09-14-2021 End: 09-14-2021 Patient encounter procedure Ignacio Cheatham MD Work Phone: [facility] [place] Comment on above: Type 2 diabetes, con [...] 08-23-2021 ambulatory Ignacio Cheatham MD Work Phone: [facility] [place] Comment on above: Work accommodation Start: 08-21-2021 Telephone encounter Ignacio Cheatham MD Work Phone: [facility] [place] Comment on above: Forms Start: 08-19-2021 Telephone encounter Karly Wells RN T [facility] Comment on above: Results Start: 08-15-2021 [...] Telephone encounter Ignacio Cheatham MD Work Phone: [facility] Comment on above: Patient Question Start: 08-01-2021 End: 08-01-2021 Patient encounter procedure Fab Cochran APRN.SALOONKEEPER Work Phone: Kidney Medicine Comment on above: Stage 5 chronic kidn ey disease not on chronic dialysis (HCC) (Primary Dx); Secondary renal hyperparathyroidism (HCC); Metabolic acidosis; Anemia of renal disease; Essential hypertension; Hyperlipidemia, unspecified hyperlipidemia type; Vitamin D deficiency; Persistent proteinuria; Hyperphosphatemia Start: 07-30-2021 End: 07-30-2021 Patient encounter procedure Ignacio Cheatham MD Work Phone: [facility] Comment on above: Hypotension, unspeci fied hypotension type (Primary Dx); CKD (chronic kidney disease) Stage 4, GFR 15-29 ml/min; Type 2 diabetes mellitus with stage 4 chronic kidney disease, without long-term current use of insulin ([facility]) Start: 07-30-2021 Telephone encounter Goldy ceballos DO Work Phone: [facility] Comment on above: Patient Update Start: 07-29-2021 End: 07-29-2021 Emergency department patient visit [facility] Start: 07-29-2021 ambulatory Chrissy Arriola RN [facility] Comment on above: Dizziness (low blood pressure, abdominal pain) Start: 07-26-2021 Refill Ignacio Cheatham MD Work Phone: [facility] Comment on above: Refill Request Start: 07-23-2021 Telephone encounter Ignacio Cheatham MD Work Phone: Family Medicine [place] Comment on above: Nurse Triage Call Start: 07-18-2021 ambulatory Goldy Booker O Work Phone: [facility] Comment on above: Glucose monitor Start: 07-18-2021 [...] kidney disease) stage 4, GFR 15-29 ml/min (HCC); Pre-transplant evaluation for chronic kidney disease; Diabetic [...] encounter procedure Ignacio Cheatham MD Work Phone: [facility] [place] Comment on above: Type 2 diabetes, con [...] Fibromyalgia Start: 06-26-2021 Telephone encounter [facility] Comment on above: Appointment Start: 06-11-2021 ambulatory Ignacio Cheatham MD Work Phone: Internal Medicine [facility] [place] Start: 06-06-2021 Telephone encounter Ignacio Cheatham MD Work Phone: Family [facility] [place] Comment on above: Results Start: 06-05-2021 Telephone encounter Ignacio Cheatham MD Work Phone: Family [facility] [place] Comment on above: Results Start: 06-03-2021 End: 06-03-2021 Patient encounter procedure Stacy Schmitz PA-C Work Phone: [facility] Comment on above: Vomiting and diarrhe a (Primary Dx); Nausea Start: 10-31-2020 End: 10-31-2020 Subsequent hospital visit by physician Xr [facility] [place] Work Phone: Radiology Comment on above: Neck pain [M54.2] Start: 01-23-2020 Patient encounter procedure SELF ANGÉLICA F Facility:[facility] Start: 03-19-2018 Ambulatory [facility] Facility :[facility] Start: 07-23-2017 End: 07-23-2017 Emergency department patient visit GRACIELA MITCHELL Facility:B Start: 03-19-2017 Ambulatory [facility] Facility :[facility] Start: 03-09-2008 End: 04-16-2017 Patient encounter status Dorene Murillo MD Work Phone: [facility] Procedures Date Procedure Procedure Detail Performing Clinician Start: 10-26-[address] Ignacio Cheatham MD Work Phone: Start: 10-24-2024 X-ray of chest, PA a nd lateral views Dr. Ignacio Cheatham MD Work Phone: Start: 10-24-[address] Ignacio Cheatham MD Work Phone: Start: 10-20-2024 Adult depression scr eening assessment Sury Gonzalez PLISSE MACHINE OPERATOR HELPER.SALOONKEEPER Work Phone: Start: 10-13-[address] Ignacio Cheatham MD Work Phone: Start: 10-12-2024 Serum inorganic phos phate measurement Dr. Ignacio Cheatham MD Work Phone: Start: 10-11-2024 [address]ridium difficil e detection Dr. Ignacio Cheatham MD Work Phone: Start: 10-11-[address] Ignacio Cheatham MD Work Phone: Start: 10-11-[address] Ignacio Cheatham MD Work Phone: Start: 10-11-2024 Iadna-dna/rna gi pth gn multiplex probe tq 6-11 Dr. Ignacio Cheatham MD Work Phone: Start: 10-11-[address] Ignacio Cheatham MD Work Phone: Start: 10-11-2024 Serum inorganic phos phate measurement Dr. Ignacio Cheatham MD Work Phone: Start: 10-10-2024 CT angiography of ch est with contrast Dr. Ignacio Cheatham MD Work Phone: Start: 10-10-[address] Ignacio Cheatham MD Work Phone: Start: 10-10-2024 X-ray of chest, PA a nd lateral views Dr. Ignacio Cheatham MD Work Phone: Start: 10-10-2024 Urnls dip stick/tabl et reagent auto microscopy Dr. Ignacio Cheatham MD Work Phone: Start: 10-10-[address] Ignacio Cheatham MD Work Phone: Start: 10-10-2024 D-dimer assay, quantitative Dr. Ignacio Cheatham MD Work Phone: Comment on above: D-Dimer ELEVATED (>0 .49): Additional studies and clinicalassessments are indicated to conclude diagnosis of:Deep Vein Thrombosis (DVT) or Pulmonary Embolism (PE)CRITICAL VALUE CALLED TO FRANCISCO JAVIER RENE10/10/[id number] Laine Leblanc.RESULTS READ BACK BY SAME. Start: 10-10-2024 Legionella pneumophi la antigen assay Dr. Ignacio Cheatham MD Work Phone: Start: 10-10-[address] Ignacio Cheatham MD Work Phone: Start: 10-10-2024 SARS-CoV-2, Influenz a & RSV (PCR) Dr. Ignacio Cheatham MD Work Phone: Start: 10-10-2024 End: 10-10-2024 Streptococcus pneumoniae antigen assay Dr. Ignacio Cheatham MD Work Phone: Start: 10-10-[address] Julius Cheatham MD Work Phone: Start: 09-06-2024 CT angiography of ch est [...] Pulmonary Embolism (PE)CRITICAL VALUE CALLED TO BONY BOYD09/06/24 195 Laine Leblanc.RESULTS READ BACK BY SAME. Start: 09-06-[address] Ignacio Cheatham MD Work Phone: Start: 12-30-2023 Radiologic examinati on knee 1/2 views Dorene Murillo MD Work Phone: Start: 12-21-2023 Arthrocentesis aspir &/inj major jt/bursa w/o us Dorene Murillo MD Work Phone: Start: 12-11-2023 PFIZER-BIONTECH COVI D-19 VACCINE AGE 12+ YR (COMIRNATY) Tresa Halillian PLISSE MACHINE OPERATOR HELPER.SALOONKEEPER Work Phone: Start: 09-18-2023 Radiologic examinati on knee 1/2 views Dorene Murillo MD Work Phone: Start: 07-09-2023 Radiologic examinati on knee 1/2 views Dorene Murillo MD Work Phone: Start: 06-09-2023 Plain X-ray of tibia and fibula Start: 06-04-2023 Plain X-ray of tibia and fibula Start: 06-04-2023 Radiologic examination of knee Start: 03-17-2023 Radex ankle complete minimum 3 views Sha Ray PLISSE MACHINE OPERATOR HELPER.SALOONKEEPER Work Phone: Start: 03-09-2023 Plain X-ray of [...] Cheatham Work Phone: Start: 01-21-2023 Fluoroscopic guidance Gage Cheatham Work Phone: Start: 01-21-2023 Intramedullary naili [...] stick/tabl et rgnt auto w/o microscopy Kirsten R Athyoanna PA-C Work Phone: Start: 11-10-2022 Radiologic examinati [...] Start: 08-11-2022 Radex elbow 2 views Charly nati Cheatham MD Work Phone: Start: 07-24-2022 Antibody screen UNKNOWN PROVIDER Comment on above: Order Comment: Speci men Type: BLOOD SPECIMEN Ordering Facility: [facility] Address: [address] [place] [address] Performed By: #### % CORDELL, TSCR, [id number] #### [facility] CLIA [id number] [address] [place] [address] [place] Start: 06-24-2022 Urnls dip stick/tabl et rgnt auto w/o microscopy Kirsten Euceda PA-C Work Phone: Start: 04-10-2022 Radiologic exam knee complete 4/more views Ignacio Cheatham MD Work Phone: Start: 04-10-2022 End: 04-10-2022 Mammography Ignacio Cheatham MD Work Phone: Start: 04-02-2022 Urnls dip stick/tabl et rgnt auto w/o microscopy Kirsten R Athyoanna PA-C Work Phone: Start: 03-04-2022 COVID WITH FLUA+B, ROUTINE Hever Cheema PLISSE MACHINE OPERATOR HELPER.SALOONKEEPER Work Phone: Start: 02-18-2022 Radex foot complete minimum 3 views Jimmy Rabago PLISSE MACHINE OPERATOR HELPER.SALOONKEEPER Work Phone: Start: 11-20-2021 Co diffusing capacity [...] DTaP/Tdap/Td Vaccines (3 - Td or Tdap) [facility] Start: 11-25-2026 Urine microalbumin profile [facility] Start: 10-20-2025 Annual PCP Team Chronic Disease Visit Annual PCP Team Chronic Disease Visit [facility] Start: 10-20-2025 Depression Screening Depression Screening [facility] Start: 08-15-2025 HPV TESTING HPV TESTING [facility] Start: 08-15-2025 PAP TESTING PAP TESTING [facility] Start: 08-15-2025 Screening for malignant neoplasm of cervix [facility] Start: 07-11-2025 Glaucoma screening Dilated Retinal Exam [facility] Start: 07-01-2025 Colonoscopy COLONOSCOPY [facility] Start: 07-01-2025 COLORECTAL CANCER SCREENING COLORECTAL CANCER SCREENING [facility] Start: 07-01-2025 Screening for malignant neoplasm of colon [facility] Start: 06-01-2025 Annual PCP Team Chronic Disease Visit Annual PCP Team Chronic Disease Visit [facility] Start: 2025 RSV Immunization aged 60 or older (1 - 1-dose 60+ series) RSV Immunization aged 60 or older (1 - 1-dose 60+ series) [facility] Start: 03-25-2025 Annual PCP Team Chronic Disease Visit Annual PCP Team Chronic Disease Visit [facility] Start: 02-20-2025 End: 02-20-2025 Patient encounter procedure 02/20/2025 5:00 PM EST Office Visit [facility] [place] [address] [place] [address] Ignacio Cheatham MD [address] [place] [address] 3 month exam [facility] [place] Comment on above: 3 month exam Start: 01-29-2025 End: 08-29-[address]25 CT Chest WO contrast CT CHEST WO IVCON Radiology Routine Lung nodules Expected: 01/29/2025, Expires: 08/29/2025 [facility] Work Phone: Comment on above: Expected: 01/29/2025, Expires: Start: 01-18-2025 End: 01-18-2025 Patient encounter procedure Pulmonary Medicine Comment on above: 6 MTH F/U Start: 01-13-2025 End: 01-13-2025 Patient encounter procedure 01/13/2025 2:15 PM EST Office Visit [facility] [address] [place], [place] [id number] Gege Mccrary, OD [address] [place] [address] Return 6 months for diabetic eye exam Ophthalmology Comment on above: Return 6 months for diabetic eye exam Start: 01-09-2025 End: 10-12-2025 CT Chest WO contrast CT CHEST WO IVCON Radiology Routine Lung nodules Expected: 01/09/2025, Expires: 10/12/2025 [facility] Work Phone: Comment on above: Expected: 01/09/2025, Expires: Start: 01-09-2025 End: 01-09-2025 Patient encounter procedure 01/09/2025 1:20 PM EST Appointment Cat Scan [address] [place], [place] [id number] CT CHEST Cat Scan Comment on above: CT CHEST Start: 12-24-2024 Annual PCP Team Chronic Disease Visit Annual PCP Team Chronic Disease Visit [facility] Start: 12-24-2024 Anxiety Screening Anxiety Screening [facility] Comment on above: Postponed from 05/31/1983 (Declined at t his time) Start: 12-24-2024 BP Controlled (<130/80) BP Controlled (<130/80) [facility] Start: 12-24-2024 Hepatitis A Vaccine (1 of 2 - Risk 2-dose series) Hepatitis A Vaccine (1 of 2 - Risk 2-dose series) [facility] Comment on above: Postponed from 1984 (Declined at t his time) Start: 12-24-2024 Shingrix Vaccine (1 of 2) Shingrix Vaccine (1 of 2) [facility] Comment on above: Postponed from 1984 (Declined at t his time) Start: 12-10-2024 Annual PCP Team Chronic Disease Visit Annual PCP Team Chronic Disease Visit [facility] Start: 12-10-2024 Diabetic foot examination Diabetic Foot Exam [facility] Start: 11-14-2024 End: 11-14-2024 Patient encounter procedure 11/14/2024 3:40 PM EDT Office Visit Neurology [address] [place], [place] [phone] Ignacio Barton Jr., MD [address] [place], [place] [phone] Dx: TIA (transient ischemic attack) [G45.9] Neurology Comment on above: Dx: TIA (transient ischemic attack) [G45 .9] Start: 11-04-2024 End: 11-04-2024 Patient encounter procedure 11/04/2024 1:20 PM EDT Office Visit [facility] [address] [place], [place] [phone] Sury Gonzalez APRN.SALOONKEEPER [address] [place], [place] [phone] [facility] follow up hypoxia d/c 10/26 [facility] Comment on above: [facility] follow up hypoxia d/c 10/26 Start: 10-31-2024 Influenza vaccination Influenza Vaccine (#1) [facility] Start: 10-26-2024 Patient discharge [facility] Start: 10-25-2024 [facility] Start: 10-25-2024 Referral to occupational therapist [facility] Start: 10-25-2024 End: 10-25-2024 Referral to service [facility] Start: 10-25-2024 Hemodialysis care [facility] Start: 10-25-2024 End: 10-25-2024 [facility] Start: 10-25-2024 Inhalation therapy procedure [facility] Start: 10-24-2024 Elevation of head of bed [facility] Start: 10-24-2024 Referral to asbestos cloth inspector [facility] Start: 10-24-2024 Care regimes management [facility] Start: 10-24-2024 Notification of physician [facility] Start: 10-24-2024 Provision of activity privileges [facility] Start: 10-24-2024 Assessment of risk of venous thromboembolism [facility] Start: 10-24-2024 Insertion of catheter into peripheral vein [facility] Start: 10-24-2024 Measuring intake and output [facility] Start: 10-24-2024 Providing care according to standard [facility] Start: 10-24-2024 Referral to service [facility] Start: 10-24-2024 End: 10-24-2024 [facility] Start: 10-24-2024 Oxygen therapy [facility] Start: 10-24-2024 Following clinical pathway protocol [facility] Start: 10-24-2024 Admission procedure [facility] Start: 10-24-2024 Hospital admission, emergency, from emergency room, medical nature [facility] Start: 10-24-2024 Consultation [facility] Start: 10-24-2024 Patient referral to dietitian [facility] Start: 10-13-2024 Patient discharge [facility] Start: 10-13-2024 End: 10-13-2024 Good [facility] Start: 10-13-2024 [facility] Start: 10-13-2024 Hemodialysis care [facility] Start: 10-12-2024 Hemodialysis care [facility] Start: 10-12-2024 End: 10-12-2024 [facility] Start: 10-12-2024 [facility] Start: 10-12-2024 Serum inorganic phosphate measurement [facility] Start: 10-11-2024 [facility] Start: 10-11-2024 Ova and Parasites Ova and Parasites [facility] Start: 10-11-2024 End: 10-11-2024 [facility] Start: 10-11-2024 Hemodialysis care [facility] Start: 10-11-2024 Serum inorganic phosphate measurement [facility] Start: 10-11-2024 End: 10-12-2024 [facility] Start: 10-10-2024 Dialysis care [facility] Start: 10-10-2024 Following clinical pathway protocol [facility] Start: 10-10-2024 Assessment of risk of venous thromboembolism [facility] Start: 10-10-2024 Care regimes management [facility] Start: 10-10-2024 Catheterization of vein [facility] Start: 10-10-2024 Enteric precautions [facility] Start: 10-10-2024 Incentive spirometry [facility] Start: 10-10-2024 Insertion of catheter into peripheral vein [facility] Start: 10-10-2024 Legionella pneumophila Ag [Presence] in Urine [facility] Start: 10-10-2024 Measuring intake and output [facility] Start: 10-10-2024 Notification of physician [facility] Start: 10-10-2024 Oxygen therapy [facility] Start: 10-10-2024 Providing care according to standard [facility] Start: 10-10-2024 Provision of activity privileges [facility] Start: 10-10-2024 Referral to asbestos cloth inspector [facility] Start: 10-10-2024 Referral to occupational therapist [facility] Start: 10-10-2024 Referral to service [facility] Start: 10-10-2024 Respiratory therapy [facility] Start: 10-10-2024 Streptococcus pneumoniae antigen assay [facility] Start: 10-10-2024 Taking nasal swab [facility] Start: 10-10-2024 Thyroid stimulating hormone measurement [facility] Start: 10-10-2024 Vitamin B12 measurement [facility] Start: 10-10-2024 End: 10-10-2024 [facility] Start: 10-10-2024 Clostridioides difficile DNA [Presence] in Unspecified specimen by CAR with probe detection [facility] Start: 10-10-2024 Lactoferrin [Presence] in Stool by Immunoassay [facility] Start: 10-10-2024 Nucleic acid assay [facility] Start: 10-10-2024 Respiratory pathogens DNA and RNA panel - Respiratory specimen by CAR with probe detection [facility] Start: 10-10-2024 Verification routine [facility] Start: 10-10-2024 Admission procedure [facility] Start: 10-10-2024 End: 10-10-2024 [facility] Start: 10-10-2024 Bacteria identified in Urine by Culture Urine Culture [facility] Start: 10-10-2024 Consultation [facility] Start: 10-10-2024 Patient referral to dietitian [facility] Start: 10-10-2024 [facility] Start: 10-03-2024 End: 10-03-2024 Patient encounter procedure 10/03/2024 10:50 AM EDT Appointment Mammogram [address] [place] [address] Mammogram Start: 09-19-2024 End: 09-19-2024 Patient encounter procedure Neurology Comment on above: 31 - 90 day follow up Start: 09-12-2024 End: 09-12-2024 Patient encounter procedure 09/12/2024 1:30 PM EDT Office Visit Pulmonary Medicine [address] [place] [address] Liz Ferreira MD [address] [place] [address] lung nodules Pulmonary Medicine Comment on above: lung nodules Start: 09-07-2024 End: 09-07-2024 Patient encounter procedure Family Medicine [facility] Comment on above: 3 month follow up 3 month follow up/A1 C care gap Start: 09-06-2024 [facility] Start: 09-06-2024 [facility] Start: 08-29-2024 End: 08-29-2024 ambulatory 08/29/2024 11:00 AM EDT Education Endocrinology [address] [place] [address] June Scott, HARDEEP [address] [address] DIETITIAN Endocrinology Comment on above: DIETITIAN Start: 08-26-2024 End: 08-26-2024 Admission to same day surgery center [facility] Comment on above: INTRO NEEDLE/CATH FOR SECTION SUPERVISOR AV FISTULA UPP ER EXTREMITY VENOUS SIDE W/ANGIO,FLUORO GUIDED,INCLUSIVE OF RAD S&I Start: 08-26-2024 End: 08-26-2024 Intro cath dialysis circuit w/trluml balo angiop INTRO NEEDLE/CATH FOR SECTION SUPERVISOR AV FISTULA UPPER EXTREMITY VENOUS SIDE W/ANGIO,FLUORO GUIDED,INCLUSIVE OF RAD S&I ESRD (end stage renal disease) ([facility]) 08/26/2024 10:30 AM EDT ME CATH Start: 08-26-2024 Subsequent hospital visit by physician [facility] Comment on above: ESRD (end stage renal disease) ([facility]) [N1 8.6] Start: 08-19-2024 End: 08-19-2024 Admission to same day surgery center 08/19/2024 12:30 PM EDT - 08/19/2024 2:08 PM EDT Surgery [facility] [address] [place] [address] Saira Jackson, DO [address] [place] [address] INTRO NEEDLE/CATH FOR SECTION SUPERVISOR AV FISTULA UPPER EXTREMITY VENOUS SIDE W/ANGIO,FLUORO GUIDED,INCLUSIVE OF RAD S&I [facility] Comment on above: INTRO NEEDLE/CATH FOR SECTION SUPERVISOR AV FISTULA UPP ER EXTREMITY VENOUS SIDE W/ANGIO,FLUORO GUIDED,INCLUSIVE OF RAD S&I Start: 08-19-2024 End: 08-19-2024 Intro cath dialysis circuit w/trluml balo angiop INTRO NEEDLE/CATH FOR SECTION SUPERVISOR AV FISTULA UPPER EXTREMITY VENOUS SIDE W/ANGIO,FLUORO GUIDED,INCLUSIVE OF RAD S&I ESRD (end stage renal disease) ([facility]) 08/19/2024 12:30 PM EDT ME CATH Start: 08-19-2024 Subsequent hospital visit by physician 08/19/2024 12:30 PM EDT Hospital Encounter [facility] [address] [place] [address] Saira Jackson, DO [address] [place] [address] ESRD (end stage renal disease) (HCC) [N18.6] [facility] Comment on above: ESRD (end stage renal disease) (HCC) [N1 8.6] Start: 08-08-2024 End: 08-08-2024 Patient encounter procedure 08/08/2024 2:45 PM EDT Office Visit [facility] [address] [place] [address] Dorene Murillo MD [address] [place] [address] Reason for visit: One of the screws is coming out [facility] Comment on above: Reason for visit: One of the screws is c oming out Start: 08-04-2024 Complete blood count Hemoglobin/Hematocrit [facility] Start: 08-04-2024 Creatinine measurement Serum Creatinine [facility] Start: 08-04-2024 End: 08-04-2024 Patient encounter procedure 08/04/2024 1:00 PM EDT Office Visit [facility] [address] [place] [address] Efra Galarza APRN.SALOONKEEPER [address] [place] [address] Dx: Spinal stenosis of lumbar region, unspecified whether neurogenic claudication present [M48.061] [facility] Comment on above: Dx: Spinal stenosis of lumbar region, un specified whether neurogenic claudication present [M48.061] Start: 08-01-2024 End: 08-01-2024 ambulatory 08/01/2024 2:00 PM EDT Education Endocrinology [address] [place] [address] June Scott, RD [address] [id number] DIETITIAN Endocrinology Comment on above: DIETITIAN Start: 07-28-2024 Complete blood count Hemoglobin/Hematocrit [facility] Start: 07-28-2024 Creatinine measurement Serum Creatinine [facility] Start: 07-27-2024 End: 07-27-2024 Patient encounter procedure 07/27/2024 3:30 PM EDT Office Visit Vasculary Surgery [address] [place] [address] Stenosis of arteriovenous graft, 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] [facility] Comment on above: Stenosis of arteriovenous graft, 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] Start: 07-27-2024 End: 07-27-2024 Patient encounter procedure 07/27/2024 2:20 PM EDT Appointment Cat Scan [address] [place] [address] Lung nodules [R91.8] Cat Scan Comment on above: Lung nodules [R91.8] Start: 07-11-2024 End: 07-11-2024 Patient encounter procedure Ophthalmology Comment on above: eye exam Reason for visit: On e of the screws is coming out Start: 07-06-2024 End: 07-06-2024 Patient encounter procedure 07/06/2024 2:00 PM EDT Office Visit Endocrinology [address] [place] [address] Trinidad Frazier APRN.SALOONKEEPER [address] [place] [address] Type 2 diabetes, controlled, 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] Endocrinology Comment on above: Type 2 diabetes, controlled, with neurop athy (HCC) [E11.40] Start: 07-04-2024 End: 07-04-2024 Patient encounter procedure 07/04/2024 2:30 PM EDT Office Visit Neurology [address] [place] [address] Alondra Chung APRN.SALOONKEEPER [address] [address] CASSIE (obstructive sleep apnea) [G47.3 Neurology Comment on above: CASSIE (obstructive sleep apnea) [G47.3 Start: 07-01-2024 End: 07-01-2024 Patient encounter procedure 07/01/2024 9:40 AM EDT Office Visit Family Medicine [facility] [address] [place] [address] Ignacio Cheatham MD [address] [place] [address] 6 month follow up [facility] Medicine [place] Comment on above: 6 month follow up Start: 06-30-2024 Complete blood count Hemoglobin/Hematocrit [facility] Start: 06-16-2024 Complete blood count Hemoglobin/Hematocrit [facility] Start: 06-16-2024 Creatinine measurement Serum Creatinine [facility] Start: 06-10-2024 Complete blood count Hemoglobin/Hematocrit [facility] Start: 06-10-2024 Creatinine measurement Serum Creatinine [facility] Start: 06-01-2024 End: 08-31-2024 CBC W Auto Differential panel - Blood COMPLETE BLOOD COUNT AND DIFFERENTIAL Lab Routine Primary hypertension Expected: 06/01/2024, Expires: 08/31/2024 [facility] Comment on above: Expected: 06/01/2024, Expires: Start: 06-01-2024 End: 08-31-2024 Comprehensive metabolic 2000 panel - Serum or Plasma COMPREHENSIVE METABOLIC PANEL Lab Routine Primary hypertension Mixed hyperlipidemia Expected: 06/01/2024, Expires: 08/31/2024 [facility] Comment on above: Expected: 06/01/2024, Expires: Start: 06-01-2024 End: 08-31-2024 Hemoglobin A1c in Blood HEMOGLOBIN A1C Lab Routine Type 2 diabetes, controlled, with neuropathy (HCC) Expected: 06/01/2024, Expires: 08/31/2024 [facility] Work Phone: Comment on above: Expected: 06/01/2024, Expires: Start: 06-01-2024 End: 08-31-2024 Lipid 1996 panel - Serum or Plasma LIPID PANEL, FASTING Lab Routine Mixed hyperlipidemia Expected: 06/01/2024, Expires: 08/31/2024 [facility] Comment on above: Expected: 06/01/2024, Expires: Start: 06-01-2024 End: 08-31-2024 Magnesium [Mass/volume] in Serum or Plasma MAGNESIUM Lab Routine Primary hypertension Gastroesophageal reflux disease, unspecified whether esophagitis present Expected: 06/01/2024, Expires: 08/31/2024 [facility] Comment on above: Expected: 06/01/2024, Expires: Start: 06-01-2024 End: 06-01-2024 Patient encounter procedure 06/01/2024 1:40 PM EDT Office Visit [facility] [address] [place] [address] Tresa Marcum, PLISSE MACHINE OPERATOR HELPER.SALOONKEEPER [address] [place] [address] rescheduled from 07/01 [facility] Comment on above: rescheduled from 07/01 Start: 04-30-2024 Glaucoma screening Dilated Retinal Exam [facility] Start: 04-01-2024 End: 04-01-2024 Patient encounter procedure 04/01/2024 11:00 AM EST Office Visit Neurology [address] [place], [place] [id number] Alondra Chung, PLISSE MACHINE OPERATOR HELPER.SALOONKEEPER [address] [place] [address] CASSIE (obstructive sleep apnea) [G47.3 Neurology Comment on above: CASSIE (obstructive sleep apnea) [G47.3 Start: 03-25-2024 End: 06-24-2024 Hemoglobin A1c in Blood HEMOGLOBIN A1C Lab Routine Primary hypertension Type 2 diabetes mellitus with stage 4 chronic kidney disease, without long-term current use of insulin (HCC) Expected: 03/25/2024, Expires: 06/24/2024 [facility] Work Phone: Comment on above: Expected: 03/25/2024, Expires: Start: 03-25-2024 End: 06-24-2024 Lipid 1996 panel - Serum or Plasma LIPID PANEL BASIC Lab Routine Primary hypertension Type 2 diabetes mellitus with stage 4 chronic kidney disease, without long-term current use of insulin (HCC) Expected: 03/25/2024, Expires: 06/24/2024 [facility] Comment on above: Expected: 03/25/2024, Expires: Start: 03-13-2024 Annual PCP Team Chronic Disease Visit Annual PCP Team Chronic Disease Visit [facility] Start: 03-02-2024 Medicare Advantage Annual Wellness Visit Medicare Advantage Annual Wellness Visit [facility] Start: 02-09-2024 End: 02-09-2024 Patient encounter procedure 02/09/2024 11:00 AM EST Office Visit [facility]ascular Surgery [address] [facility] [place] [address] Saira Jackson DO [address] [place] [address] ESRD (end stage renal disease) (HCC) [N18.6 Vascular Surgery Comment on above: ESRD (end stage renal disease) (HCC) [N1 8.6 Start: 01-27-2024 End: 01-27-2024 Patient encounter procedure 01/27/2024 10:15 AM EST Office Visit Endocrinology [address] [place] [address] Trinidad Frazier, PATRICE.SALOONKEEPER [address] [place] [address] Type 2 diabetes, controlled, 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] Endocrinology Comment on above: Type 2 diabetes, controlled, with neurop athy (HCC) [E11.40] Start: 01-20-2024 End: 01-20-2024 Patient encounter procedure 01/20/2024 3:00 PM EST [facility] [address] [place] [address] Yana Duque, formerly [facility] [address] [place] [id number] Type 2 diabetes, controlled, 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 [facility] Comment on above: Type 2 diabetes, controlled, with neurop athy (HCC) [E11.4 Start: 01-05-2024 End: 01-05-2024 Patient encounter procedure 01/05/2024 10:00 AM EST Office Visit Neurology [address] [place] [address] CASSIE (obstructive sleep apnea) [G47.33] Neurology Comment on above: CASSIE (obstructive sleep apnea) [G47.33] Start: 12-25-2023 Depression Screening Depression Screening [facility] Comment on above: Postponed from 05/31/1983 (Declined at t his time) Start: 12-25-2023 End: 12-25-2023 Patient encounter procedure 12/25/2023 9:40 AM EDT Office Visit [facility] [place] [address] [place] [address] Ignacio Cheatham MD [address] [place], [place] [id number] Medication renewal [facility] Comment on above: Medication renewal Start: 12-21-2023 End: 12-21-2023 Patient encounter procedure 12/21/2023 3:15 PM EDT Office Visit [facility] [address] [place] [address] Dorene Murillo MD [address] [address] rt tibiax [facility] Comment on above: rt tibiax Start: 12-17-2023 End: 12-17-2023 Patient encounter procedure 12/17/2023 2:15 PM EDT Office Visit [facility] [address] [place] [address] Dorene Murillo MD [address] [address] rt tibiax [facility] Comment on above: rt tibiax Start: 12-11-2023 End: 03-11-2024 CBC W Auto Differential panel - Blood COMPLETE BLOOD COUNT AND DIFFERENTIAL Lab Routine ESRD (end stage renal disease) (HCC) Expected: 12/11/2023, Expires: 03/11/2024 [facility] Comment on above: Expected: 12/11/2023, Expires: Start: 12-11-2023 End: 03-11-2024 Comprehensive metabolic 2000 panel - Serum or Plasma COMPREHENSIVE METABOLIC PANEL Lab Routine Type 2 diabetes mellitus with stage 4 chronic kidney disease, without long-term current use of insulin (HCC) Expected: 12/11/2023, Expires: 03/11/2024 [facility] Comment on above: Expected: 12/11/2023, Expires: Start: 12-11-2023 End: 03-11-2024 Hemoglobin A1c in Blood HEMOGLOBIN A1C Lab Routine Type 2 diabetes mellitus with stage 4 chronic kidney disease, without long-term current use of insulin (HCC) Expected: 12/11/2023, Expires: 03/11/2024 [facility] Comment on above: Expected: 12/11/2023, Expires: Start: 12-11-2023 End: 03-11-2024 Lipid 1996 panel - Serum or Plasma LIPID PANEL BASIC Lab Routine Mixed hyperlipidemia Expected: 12/11/2023, Expires: 03/11/2024 [facility] Work Phone: Comment on above: Expected: 12/11/2023, Expires: Start: 12-11-2023 End: 03-11-2024 Magnesium [Mass/volume] in Serum or Plasma MAGNESIUM Lab Routine Gastroesophageal reflux disease, unspecified whether esophagitis present Expected: 12/11/2023, Expires: 03/11/2024 [facility] Comment on above: Expected: 12/11/2023, Expires: Start: 12-11-2023 End: 12-11-2023 Patient encounter procedure 12/11/2023 11:20 AM EDT Office Visit Family Medicine [place] [address] [place] [address] Tresa Marcum APRN.SALOONKEEPER [address] [place] [address] [facility] f/u for R knee surgery and infection. See TE 12/07/23. [facility] Comment on above: [facility] f/u for R knee surgery and infection. See TE 12/07/23. Start: 11-11-2023 Complete blood count Hemoglobin/Hematocrit [facility] Start: 11-11-2023 Creatinine measurement Serum Creatinine [facility] Start: 11-11-2023 HEMOGLOBIN/HEMATOCRIT HEMOGLOBIN/HEMATOCRIT [facility] Start: 11-11-2023 Serum Creatinine Serum Creatinine [facility] Start: 11-08-2023 ANNUAL PCP TEAM CHRONIC DISEASE VISIT ANNUAL PCP TEAM CHRONIC DISEASE VISIT [facility] Start: 11-03-2023 End: 11-03-2023 Patient encounter procedure 11/03/2023 1:00 PM EDT Office Visit [facility] [address] [place] [address] Gege Mccrary, OD [address] [place] [address] dilated retinal exam Ophthalmology Comment on above: dilated retinal exam Start: 11-01-2023 Covid-19 Vaccine () Covid-19 Vaccine () [facility] Start: 11-01-[address] [facility] Start: 10-21-2023 ANNUAL PCP TEAM CHRONIC DISEASE VISIT ANNUAL PCP TEAM CHRONIC DISEASE VISIT [facility] Start: 10-15-2023 End: 10-15-2023 Patient encounter procedure 10/15/2023 9:15 AM EDT Office Visit Podiatry [address] [place] [address] Frank Gerard [address] [place] [address] Right ankle and foot pain (bruising)-XRAY in [facility] Comment on above: Right ankle and foot pain (bruising)-XRA Y in [facility] Start: 10-05-2023 End: 05-05-2024 Ct thorax w/o contrast material CT CHEST WO IVCON Radiology Routine Lung nodules Expected: 10/05/2023, Expires: 05/05/2024 [facility] Work Phone: Comment on above: Expected: 10/05/2023, Expires: Start: 09-14-2023 End: 09-14-2023 Patient encounter procedure 09/14/2023 9:45 AM EDT Office Visit [facility] [address] [place] [address] Dorene Murillo MD [address] [place] [address] post op rt tibiax sx 06/12/23 [facility] Comment on above: post op rt tibiax sx 06/12/23 Start: 09-10-2023 ANNUAL PCP TEAM CHRONIC DISEASE VISIT ANNUAL PCP TEAM CHRONIC DISEASE VISIT [facility] Start: 08-27-2023 HEMOGLOBIN/HEMATOCRIT HEMOGLOBIN/HEMATOCRIT [facility] Start: 08-27-2023 Hepatitis B surface antibody level LDL CHOLESTEROL [facility] Start: 08-27-2023 SERUM CREATININE SERUM CREATININE [facility] Start: 08-22-2023 HEMOGLOBIN/HEMATOCRIT HEMOGLOBIN/HEMATOCRIT [facility] Start: 08-22-2023 SERUM CREATININE SERUM CREATININE [facility] Start: 08-17-2023 End: 08-17-2023 Patient encounter procedure 08/17/2023 11:30 AM EDT Office Visit [facility] [address] [place] [address] Dorene Murillo MD [address] [address] rt tibia sx 06/12/23 [facility] Comment on above: rt tibia sx 06/12/23 Start: 08-12-2023 ANNUAL PCP TEAM CHRONIC DISEASE VISIT ANNUAL PCP TEAM CHRONIC DISEASE VISIT [facility] Start: 08-12-2023 Hemoglobin A1c measurement Diabetes: Hemoglobin A1C [facility] Start: 08-12-2023 HEMOGLOBIN/HEMATOCRIT HEMOGLOBIN/HEMATOCRIT [facility] Start: 08-12-2023 HEPATITIS A (1 of 2 - Risk 2-dose series) HEPATITIS A (1 of 2 - Risk 2-dose series) [facility] Comment on above: Postponed from 1966 (Declined at t his time) Postponed from 05/30 (Declined at this time) Start: 08-12-2023 Hepatitis A Vaccine (1 of 2 - Risk 2-dose series) Hepatitis A Vaccine (1 of 2 - Risk 2-dose series) [facility] Comment on above: Postponed from 1984 (Declined at t his time) Start: 08-12-2023 Hepatitis B surface antibody level LDL CHOLESTEROL [facility] Start: 08-12-2023 SERUM CREATININE SERUM CREATININE [facility] Start: 08-12-2023 SHINGRIX VACCINE (1 of 2) SHINGRIX VACCINE (1 of 2) [facility] Comment on above: Postponed from 1984 (Declined at t his time) Start: 08-05-2023 HEMOGLOBIN/HEMATOCRIT HEMOGLOBIN/HEMATOCRIT [facility] Start: 08-05-2023 SERUM CREATININE SERUM CREATININE [facility] Start: 08-01-2023 HEMOGLOBIN/HEMATOCRIT HEMOGLOBIN/HEMATOCRIT [facility] Start: 08-01-2023 SERUM CREATININE SERUM CREATININE [facility] Start: 07-29-2023 End: 07-29-2023 Debridement [...] EDT [place] Start: 07-25-2023 HEMOGLOBIN/HEMATOCRIT HEMOGLOBIN/HEMATOCRIT [facility] Start: 07-22-2023 Hemoglobin A1c measurement HbA1C [facility] Start: 07-13-2023 End: 07-13-2023 Patient encounter procedure 07/13/2023 8:45 AM EDT Office Visit Podiatry [address] [place], [place] [id number] Frank Gerard [address] [place] [address] diabetic f/u 1 mnth r/s from Podiatry Comment on above: diabetic f/u 1 mnth r/s from Start: 07-10-2023 End: 07-10-2023 Patient encounter procedure 07/10/2023 8:45 AM EDT Office Visit Podiatry [address] [place], [place] [id number] Frank Gerard [address] [place] [address] diabetic f/u 1 mnth r/s from Podiatry Comment on above: diabetic f/u 1 mnth r/s from Start: 07-09-2023 SERUM CREATININE SERUM CREATININE [facility] Start: 07-06-2023 End: 07-06-2023 Patient encounter procedure 07/06/2023 11:30 AM EDT Office Visit [facility] [address] [place] [address] Dorene Murillo MD [address] [place] [address] PO R TIBIA--SX: 06/12/23 [facility] Comment on above: PO R TIBIA--SX: 06/12/23 Start: 07-06-2023 End: 07-06-2023 Patient encounter procedure 07/06/2023 8:30 AM EDT Office Visit Podiatry [address] [place] [address] Frank Gerard [address] [place] [address] 1 month follow up diabetic foot care Podiatry Comment on above: 1 month follow up diabetic foot care Start: 07-04-2023 SERUM CREATININE SERUM CREATININE [facility] Start: 07-02-2023 Administration of blood product [facility] Start: 07-02-2023 [facility] Start: 07-02-2023 Administration of blood product [facility] Start: 07-02-2023 [facility] Start: 07-02-2023 Administration of blood product [facility] Start: 07-02-2023 [facility] Start: 07-01-2023 HEMOGLOBIN/HEMATOCRIT HEMOGLOBIN/HEMATOCRIT [facility] Start: 07-01-2023 SERUM CREATININE SERUM CREATININE [facility] Start: 06-29-2023 Leukocyte reduced red blood cells [facility] Start: 06-29-2023 End: 06-29-2023 [facility] Start: 06-29-2023 Administration of blood product [facility] Start: 06-09-2023 [facility] Start: 06-04-2023 [facility] Start: 05-25-2023 HEMOGLOBIN/HEMATOCRIT HEMOGLOBIN/HEMATOCRIT [facility] Start: 05-25-2023 SERUM CREATININE SERUM CREATININE [facility] Start: 04-10-2023 Mammography [facility] Start: 04-10-2023 Screening for malignant neoplasm of breast Mammogram Screening [facility] Start: 04-02-2023 BP CONTROLLED (<130/80) BP CONTROLLED (<130/80) [facility] Start: 03-22-2023 HEMOGLOBIN/HEMATOCRIT HEMOGLOBIN/HEMATOCRIT [facility] Start: 03-21-2023 ANNUAL PCP TEAM CHRONIC DISEASE VISIT ANNUAL PCP TEAM CHRONIC DISEASE VISIT [facility] Start: 03-09-2023 [facility] Start: 03-02-2023 Behavioral Health Screening Behavioral Health Screening [facility] Start: 02-20-2023 HEMOGLOBIN/HEMATOCRIT HEMOGLOBIN/HEMATOCRIT [facility] Start: 02-04-2023 [facility] Start: 02-04-2023 Administration of blood product [facility] Start: 02-04-2023 Leukocyte reduced red blood cells [facility] Start: 02-04-2023 [facility] Start: 01-29-2023 Patient discharge [facility] Start: 01-29-2023 End: 01-29-2023 [facility] Start: 01-29-2023 Hemodialysis care [facility] Start: 01-27-2023 End: 01-27-2023 [facility] Start: 01-27-2023 Hemodialysis care [facility] Start: 01-24-2023 HEMOGLOBIN/HEMATOCRIT HEMOGLOBIN/HEMATOCRIT [facility] Start: 01-24-2023 End: 01-24-2023 [facility] Start: 01-24-2023 Hemodialysis care [facility] Start: 01-22-2023 End: 01-23-2023 [facility] Start: 01-21-2023 Application of intermittent pneumatic compression device [facility] Start: 01-21-2023 Provision of overbed trapeze [facility] Start: 01-21-2023 Recommendation to continue with treatment [facility] Start: 01-21-2023 Ambulation therapy management [facility] Start: 01-21-2023 Application of device [facility] Start: 01-21-2023 Application of elastic bandage [facility] Start: 01-21-2023 Assessment of risk of venous thromboembolism [facility] Start: 01-21-2023 Catheterization of vein [facility] Start: 01-21-2023 Exercises [facility] Start: 01-21-2023 Following clinical pathway protocol [facility] Start: 01-21-2023 Introduction of urinary catheter [facility] Start: 01-21-2023 Measuring intake and output [facility] Start: 01-21-2023 Neurovascular assessment [facility] Start: 01-21-2023 Patient education [facility] Start: 01-21-2023 Procedure discontinued [facility] Start: 01-21-2023 Provision of activity privileges [facility] Start: 01-21-2023 Referral to occupational therapist [facility] Start: 01-21-2023 Referral to service [facility] Start: 01-21-2023 Vital signs measurements [facility] Start: 01-21-2023 Wound care [facility] Start: 01-21-2023 [facility] Start: 01-21-2023 End: 01-21-2023 [facility] Start: 01-21-2023 Hemodialysis care [facility] Start: 01-20-2023 End: 01-20-2023 [facility] Start: 01-20-2023 Hemodialysis care [facility] Start: 01-20-2023 Inhalation therapy procedure [facility] Start: 01-19-2023 Assessment of risk of venous thromboembolism [facility] Start: 01-19-2023 Care planning and problem solving actions [facility] Start: 01-19-2023 Care regimes management [facility] Start: 01-19-2023 Consultation [facility] Start: 01-19-2023 Insertion of catheter into peripheral vein [facility] Start: 01-19-2023 Measuring intake and output [facility] Start: 01-19-2023 Notification of physician [facility] Start: 01-19-2023 Providing care according to standard [facility] Start: 01-19-2023 Referral to asbestos cloth inspector [facility] Start: 01-19-2023 Referral to occupational therapist [facility] Start: 01-19-2023 Referral to service [facility] Start: 01-19-2023 [facility] Start: 01-19-2023 Following clinical pathway protocol [facility] Start: 01-19-2023 Admission procedure [facility] Start: 01-19-2023 Verification routine [facility] Start: 01-19-2023 Hospital admission, emergency, from emergency room, medical nature [facility] Start: 01-19-2023 Consultation [facility] Start: 01-15-2023 [facility] Start: 01-13-2023 [facility] Start: 01-10-2023 HEMOGLOBIN/HEMATOCRIT HEMOGLOBIN/HEMATOCRIT [facility] Start: 01-10-2023 SERUM CREATININE SERUM CREATININE [facility] Start: 12-27-2022 HEMOGLOBIN/HEMATOCRIT HEMOGLOBIN/HEMATOCRIT [facility] Start: 12-18-2022 HEMOGLOBIN/HEMATOCRIT HEMOGLOBIN/HEMATOCRIT [facility] Start: 12-18-2022 SERUM CREATININE SERUM CREATININE [facility] Start: 11-20-2022 End: 01-20-2023 Bacteria identified in Urine by Culture URINE CULTURE Microbiology Routine Dysuria Expected: 11/20/2022, Expires: 01/20/2023 [facility] Work Phone: Comment on above: Expected: 11/20/2022, Expires: 3 Start: 11-20-2022 HEMOGLOBIN/HEMATOCRIT HEMOGLOBIN/HEMATOCRIT [facility] Start: 11-20-2022 SERUM CREATININE SERUM CREATININE [facility] Start: 11-11-2022 Hemoglobin A1c/Hemoglobin.total in Blood HBA1C [facility] Start: 11-11-2022 Hepatitis B Vaccines (2 of 2 - CpG 2-dose series) Hepatitis B Vaccines (2 of 2 - CpG 2-dose series) [facility] [employer] [facility] Start: 11-07-2022 End: 01-07-2023 PAIN PANEL, UR QUANT PAIN PANEL, UR QUANT Lab Routine Encounter for drug screening Expected: 11/07/2022, Expires: 01/07/2023 [facility] Work Phone: Comment on above: Expected: 11/07/2022, Expires: 3 Start: 11-07-2022 End: 01-07-2023 TOX SCREEN ROUT UR TOX SCREEN ROUT UR Lab Routine Encounter for drug screening Expected: 11/07/2022, Expires: 01/07/2023 [facility] Work Phone: Comment on above: Expected: 11/07/2022, Expires: 3 Start: 10-31-2022 COVID-19 Vaccine ( season) COVID-19 Vaccine () [facility] Start: 10-31-2022 Covid-19 Vaccine () Covid-19 Vaccine () [facility] Start: 10-31-2022 Influenza vaccination [facility] Start: 10-30-2022 [facility] Start: 10-16-2022 ANNUAL PCP TEAM CHRONIC DISEASE VISIT ANNUAL PCP TEAM CHRONIC DISEASE VISIT [facility] Start: 09-21-2022 HEMOGLOBIN/HEMATOCRIT HEMOGLOBIN/HEMATOCRIT [facility] Start: 09-21-2022 SERUM CREATININE SERUM CREATININE [facility] Start: 09-19-2022 Hemoglobin A1c/Hemoglobin.total in Blood HBA1C [facility] Start: 09-17-2022 End: 11-17-2022 Chronic hepatitis differentiation between hepatitis B and C virus panel - Serum or Plasma HEP REMOTE PANEL BL Lab Routine End stage renal disease (HCC) Expected: 09/17/2022, Expires: 11/17/2022 [facility] Work Phone: Comment on above: Expected: 09/17/2022, Expires: 3 Start: 09-14-2022 Adult depression screening assessment DEPRESSION SCREENING [facility] Start: 09-14-2022 ANNUAL PCP TEAM CHRONIC DISEASE VISIT ANNUAL PCP TEAM CHRONIC DISEASE VISIT [facility] Start: 09-12-2022 Patient discharge [facility] Start: 09-12-2022 [facility] Start: 09-10-2022 End: 11-10-2022 CBC W Auto Differential panel - Blood CBC + DIFF Lab Routine Anemia of renal disease Expected: 09/10/2022, Expires: 11/10/2022 [facility] Work Phone: Comment on above: Expected: 09/10/2022, Expires: 3 Start: 09-10-2022 End: 11-10-2022 Comprehensive metabolic 2000 panel - Serum or Plasma COMP METABOLIC PANEL Lab Routine CKD (chronic kidney disease) stage 5, GFR less than 15 ml/min (HCC) Hyperkalemia Metabolic acidosis Hypocalcemia Expected: 09/10/2022, Expires: 11/10/2022 [facility] Work Phone: Comment on above: Expected: 09/10/2022, Expires: Start: 09-10-2022 Assessment of risk of venous thromboembolism [facility] Start: 09-10-2022 Care of central venous catheter [facility] Start: 09-10-2022 Care regimes management [facility] Start: 09-10-2022 Fall prevention [facility] Start: 09-10-2022 Inhalation therapy procedure [facility] Start: 09-10-2022 Insertion of catheter into peripheral vein [facility] Start: 09-10-2022 Introduction of urinary catheter [facility] Start: 09-10-2022 Measuring intake and output [facility] Start: 09-10-2022 Oxygen therapy [facility] Start: 09-10-2022 Providing care according to standard [facility] Start: 09-10-2022 Provision of activity privileges [facility] Start: 09-10-2022 Referral to occupational therapist [facility] Start: 09-10-2022 Referral to service [facility] Start: 09-10-2022 [facility] Start: 09-10-2022 Following clinical pathway protocol [facility] Start: 09-10-2022 Admission procedure [facility] Start: 09-07-2022 US.doppler Lower extremity vein [facility] Start: 09-04-2022 End: 11-04-2022 Hepatitis B virus core Ab [Presence] in Serum HEP B CORE AB TOTAL Lab Routine CKD (chronic kidney disease) stage 5, GFR less than 15 ml/min (HCC) Expected: 09/04/2022 (Approximate), Expires: 11/04/2022 [facility] Work Phone: Comment on above: Expected: 09/04/2022 (Approximate), Expi res: 11/04/2022 Start: 08-27-2022 End: 10-27-2022 Hepatitis B virus core Ab [Presence] in Serum HEP B CORE AB TOTAL Lab Routine CKD (chronic kidney disease) stage 5, GFR less than 15 ml/min (HCC) Expected: 08/27/2022, Expires: 10/27/2022 [facility] Work Phone: Comment on above: Expected: 08/27/2022, Expires: 3 Start: 08-27-2022 End: 10-27-2022 Hepatitis B virus surface Ab [Presence] in Serum HEP B SURF AB Lab Routine CKD (chronic kidney disease) stage 5, GFR less than 15 ml/min (HCC) Expected: 08/27/2022, Expires: 10/27/2022 [facility] Work Phone: Comment on above: Expected: 08/27/2022, Expires: 3 Start: 08-27-2022 End: 10-27-2022 Hepatitis B virus surface Ag [Presence] in Serum HEP B SURF AG SCRN Lab Routine CKD (chronic kidney disease) stage 5, GFR less than 15 ml/min (HCC) Expected: 08/27/2022, Expires: 10/27/2022 [facility] Work Phone: Comment on above: Expected: 08/27/2022, Expires: 3 Start: 08-26-2022 End: 10-26-2022 POTASSIUM BLD POTASSIUM BLD Lab Routine Hyperkalemia Expected: 08/26/2022, Expires: 10/26/2022 [facility] Work Phone: Comment on above: Expected: 08/26/2022, Expires: 3 Start: 07-30-2022 ANNUAL PCP TEAM CHRONIC DISEASE VISIT ANNUAL PCP TEAM CHRONIC DISEASE VISIT [facility] Start: 07-30-2022 BP CONTROLLED (<130/80) BP CONTROLLED (<130/80) [facility] Start: 07-30-2022 HEMOGLOBIN/HEMATOCRIT HEMOGLOBIN/HEMATOCRIT [facility] Start: 07-30-2022 SERUM CREATININE SERUM CREATININE [facility] Start: 07-03-2022 HEMOGLOBIN/HEMATOCRIT HEMOGLOBIN/HEMATOCRIT [facility] Start: 07-03-2022 Hepatitis B surface antibody level LDL CHOLESTEROL [facility] Start: 07-03-2022 SERUM CREATININE SERUM CREATININE [facility] Start: 06-28-2022 3 comp foot exam completed DIABETIC FOOT EXAM [facility] Start: 06-28-2022 Diabetic foot examination Diabetic Foot Exam [facility] Start: 06-26-2022 ANNUAL PCP TEAM CHRONIC DISEASE VISIT ANNUAL PCP TEAM CHRONIC DISEASE VISIT [facility] Start: 06-26-2022 HEMOGLOBIN/HEMATOCRIT HEMOGLOBIN/HEMATOCRIT [facility] Start: 06-26-2022 SERUM CREATININE SERUM CREATININE [facility] Start: 06-03-2022 HEMOGLOBIN/HEMATOCRIT HEMOGLOBIN/HEMATOCRIT [facility] Start: 06-03-2022 SERUM CREATININE SERUM CREATININE [facility] Start: 05-10-2022 Glaucoma screening Dilated Retinal Exam [facility] Start: 05-10-2022 Hepatitis C antibody, confirmatory test DILATED RETINAL EXAM [facility] Start: 05-07-2022 HEMOGLOBIN/HEMATOCRIT HEMOGLOBIN/HEMATOCRIT [facility] Start: 05-07-2022 SERUM CREATININE SERUM CREATININE [facility] Start: 03-26-2022 ANNUAL PCP TEAM CHRONIC DISEASE VISIT ANNUAL PCP TEAM CHRONIC DISEASE VISIT [facility] Start: 03-24-2022 Hemoglobin A1c/Hemoglobin.total in Blood HBA1C [facility] Start: 03-07-2022 End: 05-07-2022 Hematocrit [Volume Fraction] of Blood HEMATOCRIT (HCT) Lab STAT Iron malabsorption Chronic kidney disease (CKD), stage IV (severe) (HCC) Anemia due to stage 4 chronic kidney disease (HCC) Expected: 03/07/2022, Expires: 05/07/2022 [facility] Work Phone: Comment on above: Expected: 03/07/2022, Expires: 3 Start: 03-07-2022 End: 05-07-2022 Hemoglobin [Mass/volume] in Blood HEMOGLOBIN (HGB) Lab STAT Iron malabsorption Chronic kidney disease (CKD), stage IV (severe) (HCC) Anemia due to stage 4 chronic kidney disease (HCC) Expected: 03/07/2022, Expires: 05/07/2022 [facility] Work Phone: Comment on above: Expected: 03/07/2022, Expires: 3 Start: 03-02-2022 DEPRESSION ASSESSMENT DEPRESSION ASSESSMENT [facility] Start: 02-20-2022 End: 04-22-2022 25-hydroxyvitamin D3 [Mass/volume] in Serum or Plasma VITAMIN D 25 HYDROXY Lab Routine Repetitive stress injury Other diabetic neurological complication associated with type 2 diabetes mellitus (HCC) Expected: 02/20/2022, Expires: 04/22/2022 [facility] Work Phone: Comment on above: Expected: 02/20/2022, Expires: 3 Start: 12-06-2021 End: 12-05-2022 Cobalamin (Vitamin B12) [Mass/volume] in Serum or Plasma VITAMIN B12 BLOOD Lab Routine Anemia of renal disease Expected: 12/06/2021 (Approximate), Expires: 12/05/2022 [facility] Work Phone: Comment on above: Expected: 12/06/2021 (Approximate), Expi res: 12/05/2022 Start: 12-05-2021 End: 12-05-2022 Ferritin [Mass/volume] in Serum or Plasma FERRITIN BLD Lab Routine Anemia of renal disease Expected: 12/05/2021, Expires: 12/05/2022 [facility] Work Phone: Comment on above: Expected: 12/05/2021, Expires: 3 Start: 12-05-2021 End: 12-05-2022 Folate [Mass/volume] in Serum or Plasma FOLATE SERUM Lab Routine Anemia of renal disease Expected: 12/05/2021, Expires: 12/05/2022 [facility] Work Phone: Comment on above: Expected: 12/05/2021, Expires: 3 Start: 12-05-2021 End: 12-05-2022 Iron and Iron binding capacity panel - Serum or Plasma IRON + TIBC Lab Routine Anemia of renal disease Expected: 12/05/2021, Expires: 12/05/2022 [facility] Work Phone: Comment on above: Expected: 12/05/2021, Expires: 3 Start: 12-04-2021 End: 02-03-2022 Parathyrin.intact [Mass/volume] in Serum or Plasma PTH INTACT BLD Lab Routine Secondary renal hyperparathyroidism (HCC) Expected: 12/04/2021, Expires: 02/03/2022 [facility] Work Phone: Comment on above: Expected: 12/04/2021, Expires: 2 Start: 10-31-2021 Influenza vaccination INFLUENZA (#1) [facility] Start: 09-14-2021 End: 11-14-2021 Hemoglobin A1c in Blood HGB A1C Lab Routine Type 2 diabetes, controlled, with neuropathy (HCC) Expected: 09/14/2021, Expires: 11/14/2021 [facility] Work Phone: Comment on above: Expected: 09/14/2021, Expires: 2 Start: 08-15-2021 Mammography MAMMOGRAM [facility] Start: 08-07-2021 Hemoglobin A1c/Hemoglobin.total in Blood HBA1C [facility] Start: 07-23-2021 3 comp foot exam completed DIABETIC FOOT EXAM [facility] Start: 07-20-2021 Hepatitis B surface antibody level LDL CHOLESTEROL [facility] Start: 06-11-2021 End: 08-11-2021 LIPID PANEL BASIC LIPID PANEL BASIC Lab Routine Hyperlipidemia, unspecified hyperlipidemia type Expected: 06/11/2021, Expires: 08/11/2021 [facility] Work Phone: Comment on above: Expected: 06/11/2021, Expires: 2 Start: 06-11-2021 End: 08-11-2021 SCHEDULE LAB TESTING SCHEDULE LAB TESTING Lab Routine Expected: 06/11/2021, Expires: 08/11/2021 [facility] Work Phone: Comment on above: Expected: 06/11/2021, Expires: 2 Start: 03-02-2021 DEPRESSION ASSESSMENT DEPRESSION ASSESSMENT [facility] Start: 01-15-2021 COVID-19 VACCINE (3 - Booster for Pfizer series) COVID-19 VACCINE (3 - Booster for Pfizer series) [facility] Start: 10-10-2020 COVID-19 VACCINE (3 - Booster for Pfizer series) COVID-19 VACCINE (3 - Booster for Pfizer series) [facility] Start: 05-13-2019 Adult depression screening assessment DEPRESSION SCREENING [facility] Start: 05-31-2015 SHINGRIX VACCINE (1 of 2) SHINGRIX VACCINE (1 of 2) [facility] Start: 05-31-2015 Zoster Vaccines (1 of 2) Zoster Vaccines (1 of 2) [facility] Start: 11-30-2013 TWO PNEUMOVAX 5 YEARS APART PRIOR TO AGE 65 (#2) TWO PNEUMOVAX 5 YEARS APART PRIOR TO AGE 65 (#2) [facility] Start: 2010 COLOGUARD (FIT-DNA) COLOGUARD (FIT-DNA) [facility] Start: [address] COLONOGRAPHY [facility] Start: 2010 FECAL OCCULT BLOOD FECAL OCCULT BLOOD [facility] Start: 2010 Screening for malignant neoplasm of colon [facility] Start: 2010 SIGMOIDOSCOPY SIGMOIDOSCOPY [facility] Start: 11-30-2009 PNEUMOCOCCAL (2 - PCV) PNEUMOCOCCAL (2 - PCV) [facility] Start: 11-30-2009 Pneumococcal Vaccine: Pediatrics (0 to 5 Years) and At-Risk Patients (6 to 64 Years) (2 of 2 - PCV) Pneumococcal Vaccine: Pediatrics (0 to 5 Years) and At-Risk Patients (6 to 64 Years) (2 of 2 - PCV) [facility] Start: 2005 Screening for malignant neoplasm of breast Mammogram [facility] Start: 05-31-1995 Screening for malignant neoplasm of cervix [facility] Start: 1986 Screening for malignant neoplasm of cervix Pap Smear [facility] Start: 1984 ADULT PREVNAR ADULT PREVNAR [facility] Start: 1984 ADULT PREVNAR-13 ADULT PREVNAR-13 [facility] Start: 1984 Hepatitis A Vaccine (1 of 2 - Risk 2-dose series) Hepatitis A Vaccine (1 of 2 - Risk 2-dose series) [facility] Start: 1984 HEPATITIS B (1 of 3 - Risk 3-dose series) HEPATITIS B (1 of 3 - Risk 3-dose series) [facility] Start: 1984 SHINGRIX VACCINE (1 of 2) SHINGRIX VACCINE (1 of 2) [facility] Start: 05-31-1983 Anxiety Screening Anxiety Screening [facility] Start: 05-31-1983 BP CONTROLLED (<130/80) BP CONTROLLED (<130/80) [facility] Start: 05-31-1983 Depression Screening Depression Screening [facility] Start: 05-31-1983 Hepatitis C screening Hepatitis C Screening [facility] Start: 1977 Depression Screening Depression Screening [facility] Start: 05-31-1975 Diabetic foot examination Diabetes: Foot Exam [facility] Start: 05-31-1975 Glaucoma screening Diabetes: Retinopathy Screening [facility] Start: 05-31-1975 Preventive dental service Diabetes: Dental Exam [facility] Start: 1966 HEPATITIS A (1 of 2 - Risk 2-dose series) HEPATITIS A (1 of 2 - Risk 2-dose series) [facility] Start: 1966 MMR Vaccines (1 of 1 - Standard series) MMR Vaccines (1 of 1 - Standard series) [facility] Start: 1965 HEPATITIS B (1 of 3 - 3-dose series) HEPATITIS B (1 of 3 - 3-dose series) [facility] Start: 1965 HIV screening HIV Screening [facility] Start: 1965 Lipid panel Lipid Panel [facility] Start: 1965 Screening for malignant neoplasm of colon [facility] Alanine aminotransfe rase [Enzymatic activity/volume] in Serum or Plasma [facility] Albumin [Mass/volume ] in Serum or Plasma [facility] Alkaline phosphatase [Enzymatic activity/volume] in Serum or Plasma [facility] Anion gap in Serum o r Plasma [facility] Appl modality 1/> ar eas [employer] ea 15 min HYDROTHERAPY Procedures Routine Other chronic pain Fibromyalgia Weakness of both lower extremities Ordered: 06/01/2024 [facility] Comment on above: Ordered: 06/01/2024 Bacteria identified in Urine by Culture URINE CULTURE Microbiology Routine Urinary frequency Ordered: 04/02/2022 [facility] Work Phone: Comment on above: Ordered: 04/02/2022 Bacteria identified in Urine by Culture URINE CULTURE Microbiology Routine Acute UTI 06/24/2022 10:25 AM EDT [facility] Work Phone: Bacteria identified in Urine by Culture URINE CULTURE Microbiology STAT Dysuria 11/19/2022 12:40 PM EDT [facility] Work Phone: Bilirubin, total measurement [facility] BUN/Creatinine ratio [facility] Calcium [Mass/volume ] in Serum or Plasma [facility] Carbon dioxide, tota l [Moles/volume] in Central venous blood [facility] End: 03-25-2023 CBC panel - Blood by Automated count CBC Lab Routine Chronic kidney disease, stage 4, severely decreased GFR (HCC) Once per month for 4 Occurrences starting 03/25/2022 until 03/25/2023 [facility] Work Phone: Comment on above: Once per month for 4 Occurrences startin g 03/25/2022 until 03/25/2023 End: 07-30-2022 CBC W Auto Differential panel - Blood CBC + DIFF Lab Routine Anemia of renal disease Once per month for 11 Occurrences starting 07/30/2021 until 07/30/2022, 1 completed [facility] Work Phone: Comment on above: Once per month for 11 Occurrences starti ng 07/30/2021 until 07/30/2022, 1 completed Cholesterol [Mass/volume] in Serum or Plasma [facility] Cholesterol in HDL [Mass/volume] in Serum or Plasma [facility] Creatinine [Mass/vol ume] in Serum or Plasma [facility] End: 07-01-2025 CT Chest WO contrast CT CHEST WO IVCON Radiology Routine Lung nodules 1 Occurrences starting 06/01/2024 until 07/01/2025 [facility] Comment on above: 1 Occurrences starting 06/01/2024 until 07/01/2025 CT Chest WO contrast CT CHEST WO IVCON Radiology Routine Lung nodules 07/27/2024 2:44 PM EDT [facility] Work Phone: End: 07-12-2023 CT KNEE WO IVCON LEFT CT KNEE WO IVCON LEFT Radiology Routine Chronic pain of left knee 1 Occurrences starting 06/12/2022 until 07/12/2023 [facility] Work Phone: Comment on above: 1 Occurrences starting 06/12/2022 until 07/12/2023 Ct thorax w/o contra st material CT CHEST WO IVCON Radiology Routine Lung nodules 04/03/2023 2:41 PM EST [facility] Work Phone: End: 05-19-2025 DBT Breast - bilateral screening MARYLU SCREENING W VERONICA Radiology Routine Encounter for screening mammogram for breast cancer 1 Occurrences starting 04/19/2024 until 05/19/2025 [facility] Work Phone: Comment on above: 1 Occurrences starting 04/19/2024 until 05/19/2025 Erythrocyte mean corpuscular volume determination [facility] Glucose [Mass/volume ] in Serum or Plasma [facility] End: 04-02-2023 Hematocrit [Volume Fraction] of Blood HEMATOCRIT (HCT) Lab STAT Iron malabsorption Anemia due to stage 4 chronic kidney disease (HCC) Every other week for 24 Occurrences starting 04/02/2022 until 04/02/2023 [facility] Work Phone: Comment on above: Every other week for 24 Occurrences star raymundog 04/02/2022 until 04/02/2023 Hematocrit [Volume Fraction] of Blood [facility] End: 04-02-2023 Hemoglobin [Mass/volume] in Blood HEMOGLOBIN (HGB) Lab STAT Iron malabsorption Anemia due to stage 4 chronic kidney disease (HCC) Every other week for 24 Occurrences starting 04/02/2022 until 04/02/2023 [facility] Work Phone: Comment on above: Every other week for 24 Occurrences star edgar 04/02/2022 until 04/02/2023 Hemoglobin [Mass/vol ume] in Blood [facility] Hemoglobin A1c/Hemoglobin.total in Blood [facility] End: 12-24-2024 HOME SLEEP APNEA TEST (HSAT) HOME SLEEP APNEA TEST (HSAT) Procedures Routine CASSIE (obstructive sleep apnea) 1 Occurrences starting 12/25/2023 until 12/24/2024 [facility] Work Phone: Comment on above: 1 Occurrences starting 12/25/2023 until 12/24/2024 Influenza virus A an d B RNA and SARS-CoV-2 (COVID-19) N gene panel - Respiratory specimen by CAR with probe detection COVID WITH FLUA+B, ROUTINE Microbiology Routine Viral illness Ordered: 10/15/2021 [facility] Work Phone: Comment on above: Ordered: 10/15/2021 Leukocytes [#/volume ] in Blood [facility] Low density lipoprot ein cholesterol measurement [facility] LUNG DIFFUSION CAPAC ITY (DLCO) LUNG DIFFUSION CAPACITY (DLCO) PFT Routine Pulmonary nodules 11/20/2021 3:04 PM EDT [facility] Work Phone: Mean corpuscular hemoglobin concentration determination [facility] Mean corpuscular hemoglobin determination [facility] Measurement of renal function [facility] End: 06-11-2024 MG Breast Screening MAYRLU SCREENING Radiology Routine Encounter for screening mammogram for breast cancer 1 Occurrences starting 05/13/2023 until 06/11/2024 [facility] Work Phone: Comment on above: 1 Occurrences starting 05/13/2023 until 06/11/2024 Neutrophil count [facility] Neutrophil percent differential count [facility] Ova OR parasites identification [facility] Ova OR parasites identification [facility] Patient Education [facility] Work Phone: Patient referral [facility] Work Phone: Platelets [#/volume] in Blood [facility] Potassium measurement [facility] End: 07-30-2022 Protein/Creatinine [Mass Ratio] in Urine PROTEIN CREATININE RATIO Lab Routine Stage 5 chronic kidney disease not on chronic dialysis (HCC) Essential hypertension Persistent proteinuria Once per month for 11 Occurrences starting 07/30/2021 until 07/30/2022, 1 completed [facility] Work Phone: Comment on above: Once per month for 11 Occurrences starti ng 07/30/2021 until 07/30/2022, 1 completed End: 03-25-2023 Protein/Creatinine [Mass Ratio] in Urine PROTEIN CREATININE RATIO Lab Routine Chronic kidney disease, stage 4, severely decreased GFR (HCC) Once per month for 4 Occurrences starting 03/25/2022 until 03/25/2023 [facility] Work Phone: Comment on above: Once per month for 4 Occurrences startin g 03/25/2022 until 03/25/2023 End: 09-04-2023 Radiologic exam chest single view XR CHEST 1V FRONTAL Radiology Routine CKD (chronic kidney disease) stage 5, GFR less than 15 ml/min (HCC) 1 Occurrences starting 08/05/2022 until 09/04/2023 [facility] Work Phone: Comment on above: 1 Occurrences starting 08/05/2022 until 09/04/2023 Red blood cell count [facility] Red cell distributio n width determination [facility] End: 07-30-2022 Renal function 2000 panel - Serum or Plasma RENAL FUNCTION PANEL Lab Routine Stage 5 chronic kidney disease not on chronic dialysis (HCC) Vitamin D deficiency Once per month for 11 Occurrences starting 07/30/2021 until 07/30/2022, 1 completed [facility] Work Phone: Comment on above: Once per month for 11 Occurrences starti ng 07/30/2021 until 07/30/2022, 1 completed End: 03-25-2023 Renal function 2000 panel - Serum or Plasma RENAL FUNCTION PANEL Lab Routine Chronic kidney disease, stage 4, severely decreased GFR (HCC) Once per month for 4 Occurrences starting 03/25/2022 until 03/25/2023 [facility] Work Phone: Comment on above: Once per month for 4 Occurrences startin g 03/25/2022 until 03/25/2023 End: 07-26-2022 Screening mammography bi 2-view breast inc cad MARYLU SCREENING Radiology Routine Screening breast examination 1 Occurrences starting 06/26/2021 until 07/26/2022 [facility] Work Phone: Comment on above: 1 Occurrences starting 06/26/2021 until 07/26/2022 Serum chloride measurement [facility] Sodium measurement [facility] SPIROMETRY - BASELIN E AND POST DILATOR SPIROMETRY - BASELINE AND POST DILATOR PFT Routine Pulmonary nodules 10/28/2021 9:44 AM EDT [facility] Work Phone: Total cholesterol:HD L ratio measurement [facility] Total protein measurement [facility] Triglycerides measurement [facility] Troponin T.cardiac [Mass/volume] in Serum or Plasma by High sensitivity method [facility] Troponin T.cardiac [Mass/volume] in Serum or Plasma by High sensitivity method [facility] End: 08-13-2022 UPPER EXT MAP FOR DIALYSIS ACCESS [facility] UPPER EXT MAP FOR DIALYSIS ACCESS [facility] Vascular Lab Routine CKD (chronic kidney disease) stage 5, GFR less than 15 ml/min ([facility]) 1 Occurrences starting 08/13/2021 until 08/13/2022 [facility] Work Phone: Comment on above: 1 Occurrences starting 08/13/2021 until 08/13/2022 Urea nitrogen [Mass/volume] in Serum or Plasma [facility] End: 03-25-2023 Urinalysis complete panel - Urine URINALYSIS, WITH MICROSCOPIC Lab Routine Chronic kidney disease, stage 4, severely decreased GFR ([facility]) Once per month for 4 Occurrences starting 03/25/2022 until 03/25/2023 [facility] Work Phone: Comment on above: Once per month for 4 Occurrences startin g 03/25/2022 until 03/25/2023 End: 07-30-2022 URINALYSIS, DIPSTICK ONLY URINALYSIS, DIPSTICK ONLY Lab Routine Stage 5 chronic kidney disease not on chronic dialysis ([facility]) Essential hypertension Persistent proteinuria Once per month for 11 Occurrences starting 07/30/2021 until 07/30/2022 [facility] Work Phone: Comment on above: Once per month for 11 Occurrences starti ng 07/30/2021 until 07/30/2022 Urine culture [facility] End: 02-08-2025 US AV fistula US A/V FISTULA GRAFT [facility] Vascular Lab Routine Stenosis of arteriovenous graft, 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[facility]) 1 Occurrences starting 02/09/2024 until 02/08/2025 [facility] Work Phone: Comment on above: 1 Occurrences starting 02/09/2024 until 02/08/2025 End: 05-14-2024 US.doppler Extremity arteries - bilateral for physiologic artery study PVR ANK PRESS [facility] V[facility] Lab Routine Neuropathy Type 2 diabetes, controlled, with neuropathy ([facility]) Open wound of toe of right foot Diminished pulses in lower extremity Hammertoe, bilateral 1 Occurrences starting 05/15/2023 until 05/14/2024 [facility] Work Phone: Comment on above: 1 Occurrences starting 05/15/2023 until 05/14/2024 VLDL cholesterol measurement [facility] End: 06-13-2024 XR Foot - bilateral AP and Lateral and oblique XR FOOT GENERAL 3V AP/LAT/OBL BILATERAL Radiology Routine Neuropathy Type 2 diabetes, controlled, with neuropathy (HCC) Open wound of toe of right foot Diminished pulses in lower extremity Hammertoe, bilateral 1 Occurrences starting 05/15/2023 until 06/13/2024 [facility] Work Phone: Comment on above: 1 Occurrences starting 05/15/2023 until 06/13/2024 End: 01-09-2024 XR TIBIA FIBULA 2V AP/LAT RIGHT XR TIBIA FIBULA 2V AP/LAT RIGHT Radiology Routine Stress fracture of right tibia, initial encounter 1 Occurrences starting 12/10/2022 until 01/09/2024 [facility] Work Phone: Comment on above: 1 Occurrences starting 12/10/2022 until 01/09/2024 [facility] [place] [facility] Immunizations Immunization Date Immunization Notes Care Provider Fa cili 12-22-2023 influenza, injectabl e, madin rogers canine kidney, preservative free Ignacio Cheatham MD Work Phone: [facility] 12-22-2023 influenza virus vacc ine, unspecified formulation Ignacio Cheatham MD Work Phone: [facility] 12-11-2023 COVID-19 vaccine, ag e 12+ yr (PFIZER-BIONTECH COMIRNATY) Tresa Marcum APRN.SALOONKEEPER Work Phone: [facility] 02-25-2023 respiratory syncytia l virus (RSV) vaccine, bivalent (ABRYSVO) Ct (I-Stat) Work Phone: [facility] 02-18-2023 COVID-19 vaccine, ag e 12+ yr, season (MODERNA) Ct (I-Stat) Work Phone: [facility] 12-23-2022 Seasonal, quadrivale nt, recombinant, injectable influenza vaccine, preservative free Ignacio Cheatham MD Work Phone: [facility] 12-23-2022 influenza virus vacc ine, unspecified formulation Dorene Murillo MD Work Phone: [facility] 10-14-2022 Hepatitis B vaccine (recombinant), CpG adjuvanted Ct (I-Stat) Work Phone: [facility] 08-11-2022 pneumococcal (PCV20) vaccine, 20 valent (PREVNAR 20) Kaylin Carranza RN [facility] 03-21-2022 COVID-19 booster vaccine, age 12+ yr, bivalent (PFIZER-BIONTECH) Goldy Hunter DO Work Phone: [facility] 03-21-2022 influenza, injectabl e, quadrivalent, preservative free Goldy Hunter DO Work Phone: [facility] 03-21-2022 influenza virus vacc ine, unspecified formulation Ignacio Cheatham MD Work Phone: [facility] 02-18-2021 influenza, injectabl e, quadrivalent, contains preservative Stacy Bogner PA-C Work Phone: [facility] 03-16-2019 tuberculin skin test ; purified protein derivative solution, intradermal Xr [employer] Work Phone: [facility] 02-21-2019 influenza, injectabl e, quadrivalent, contains preservative Stacy Bogner PA-C Work Phone: [facility] 02-21-2019 tuberculin skin test ; purified protein derivative solution, intradermal Xr [place] Work Phone: [facility] 12-28-2017 influenza, injectabl e, quadrivalent, contains preservative Stacy Bogner PA-C Work Phone: [facility] 06-22-2017 tuberculin skin test ; purified protein derivative solution, intradermal Xr [place] Work Phone: [facility] 06-15-2017 tuberculin skin test ; purified protein derivative solution, intradermal Xr [employer] Work Phone: [facility] 06-08-2017 tuberculin skin test ; purified protein derivative solution, intradermal Xr [employer] Work Phone: [facility] 11-25-2016 tetanus toxoid, redu calin diphtheria toxoid, and acellular pertussis vaccine, adsorbed Stacy Bogner PA-C Work Phone: [facility] 12-11-2014 influenza, seasonal, injectable Stacy Bogner PA-C Work Phone: [facility] 06-28-2013 tetanus toxoid, redu calin diphtheria toxoid, and acellular pertussis vaccine, adsorbed Stacy Bogner PA-C Work Phone: [facility] Work Phone: 02-04-2012 influenza virus vacc ine, unspecified formulation Stacy Schmitz PA-C Work Phone: [facility] Work Phone: 12-14-2008 influenza virus vacc ine, unspecified formulation Stacy Schmitz PA-C Work Phone: [facility] Work Phone: 11-30-2008 pneumococcal polysaccharide vaccine, 23 valent Stacy Schmitz PA-C Work Phone: [facility] Payers Date Payer Category Payer Medicare (Managed Care) HU[employer]NA G OLD PLUS Member Subscriber Plan / Payer (Effective 2024-Present) Name: Margareth Gonzalez Relation to Subscriber: Self Name: Margareth Gonzalez Payer ID: [id number] (NAIC) Type: HMO Address: [place] [id number] 2024 Private Health Insurance [id number] 2023 Self-pay [id number] 2023 Medicaid [id number] 2023 Private Health Insurance [id number] 2023 Private Health Insurance [employer]NA [employer] [id number] 2023-Present [address] [place] [address] Medicaid [id number] 2022 Medicare [id number].[facility] 2022 Medicare [id number] 2020 Unknown ANTHEM BLUE CARD PPO OOS [id number] 2020-Present [phone] [address] [place] [address] PPO [id number] 2020 Unknown ANTHEM BLUE CARD PPO OOS [id number] 2020-Present [phone] [address] [place] [address] PPO [id number].[facility] 2020 Unknown [id number] 2017 Medicare [id number] Medicaid [id number] Unknown [id number]. 462 Unknown [id number]. 462 Unknown [id number] [id number]. 462 Unknown [id number] [id number]. 462 Unknown [id number] 2.16.840.1.472552.3.579.2. 462 Unknown [id number] 2.16.840.1.004418.3.579.2. 462 Unknown [id number] 2.16.840.1.353441.3.579.2. 462 Unknown [id number] 2.16.840.1.013977.3.579.2. 462 Unknown [id number] 2.16.840.1.831185.3.579.2. 462 Unknown [id number] 2.16.840.1.411810.3.579.2. 462 Unknown [id number] 2.16.840.1.698818.3.579.2. 462 Unknown [id number] 2.16.840.1.269717.3.579.2. 462 Unknown [id number] 2.16.840.1.513715.3.579.2. 462 Unknown [id number] 2.16.840.1.864071.3.579.2. 462 Unknown [id number] 2.16.840.1.501445.3.579.2. 462 Unknown [id number] 2.16.840.1.203653.3.579.2. 462 Unknown [id number] 2.16.840.1.062786.3.579.2. 462 Unknown [id number] [id number]. 462 Unknown [id number] [id number]. 462 Social History Date Type Detail Facility Start: 08-28-2010 End: 12-11-2023 Tobacco smoking status NHIS Ex-smoker [facility] Work Phone: Start: 08-01-1983 End: 07-31-1989 History of tobacco use Current smoker [facility] Work Phone: Start: 08-01-1983 End: 07-31-1989 History of tobacco use Cigarette Smoker [facility] Work Phone: Start: 06-03-2021 End: 10-20-2024 Alcohol intake Ex-drinker (finding) [facility] Start: 08-15-2020 History SDOH Alcohol Comment rare [facility] Start: 04-25-2008 End: 10-15-2021 Tobacco Comment Quit at age 24 [facility] Start: 1965 Sex Assigned At Female [facility] Start: 10-01-2020 End: 01-24-2022 Exposure to SARS-CoV-2 (event) Not sure [facility] Start: 07-03-2021 Education 21 [facility] Start: 07-29-2021 End: 06-29-2023 Tobacco smoking status NHIS Unknown if ever smoked [facility] Start: 12-06-2019 None [facility] Start: 12-06-2019 With Family [facility] Start: 07-04-2019 Non-smoker [facility] Start: 07-30-2021 End: 08-01-2022 History SDOH Alcohol Frequency 1 [facility] Start: 07-30-2021 History SDOH Alcohol Std Drinks 98 [facility] Start: 07-30-2021 End: 03-20-2022 History SDOH Social Connections Phone 5 [facility] Start: 07-30-2021 End: 08-01-2022 History SDOH Social Connections Get Together 4 [facility] Start: 07-30-2021 End: 03-20-2022 History SDOH Social Connections Jain 3 [facility] Start: 07-30-2021 End: 03-20-2022 History SDOH Social Connections Living 7 [facility] Start: 07-30-2021 End: 08-01-2022 History SDOH Physical Activity DPW 2 [facility] Start: 08-09-2021 End: 08-19-2021 Exposure to SARS-CoV-2 (event) Unable to assess [facility] Start: 08-28-2010 End: 12-21-2023 Cigarettes smoked current (pack per day) - Reported 2 [facility] Start: 08-28-2010 End: 12-11-2023 Tobacco use and exposure Smokeless tobacco non-user [facility] Start: 03-20-2022 History SDOH Alcohol Std Drinks 0 [facility] Start: 03-20-2022 End: 12-21-2023 Social connection and isolation panel [facility] Do you belong to any clubs or organizations such as holiness groups, unions, fraternal or athletic groups, or school groups? Yes [facility] Are you now , , , , never or living with a partner? Never [facility] How often to you hav e a drink containing alcohol? Never [facility] Start: 02-01-2012 How many standard drinks containing alcohol do you have on a typical day? Patient does not drink [facility] How hard is it for y ou to pay for the very basics like food, housing, medical care, and heating Not very hard [facility] Do you feel stress - tense, restless, nervous, or anxious, or unable to sleep at night because your mind is troubled all the time - these days [OSQ] To some extent [facility] (I/We) worried wheth er (my/our) food would run out before (I/we) got money to buy more. Never true [facility] In the past 12 month s, was there a time when you were not able to pay the mortgage or rent on time? No [facility] Start: 05-07-2021 Gender identity Identifies as female gender (finding) [facility] Start: 05-07-2021 Sexual orientation Heterosexual (fin nereyda) [facility] How hard is it for y ou to pay for the very basics like food, housing, medical care, and heating Somewhat hard [facility] Start: 1965 Sex Assigned At Not on file [facility] [employer] NEGATED: Highlighted row [facility] Medical Equipment Procedure Code Equipment Code Equipment Origin al Text Equipment Identifier Dates Insertion, intramedullary stephen, tibia ([id number]) Tibia nail, sterile [id number] FDA Start: 01-21-2023 Insertion, intramedullary stephen, tibia ([id number]) Orthopaedic bone screw, non-bioabsorbable, sterile [id number] FDA Start: 01-21-2023 Insertion, intramedullary stephen, tibia ([id number]) Orthopaedic bone screw, non-bioabsorbable, sterile ()[id number] FDA Start: 01-21-2023 Insertion, intramedullary stephen, tibia Orthopaedic bone screw, non-bioabsorbable, sterile [id number] FDA Start: 01-21-2023 Insertion, intramedullary stephen, tibia Orthopaedic bone screw, non-bioabsorbable, sterile ()[id number] FDA Start: 01-21-2023 [id number], [id number], [id number], [id number] Start: 05-17-2020 End: 09-14-2021 Comment on above: Test Two times a day . Insulin Dep? No E11.9 DM 2 Graft 4-7mm Standard [employer] [place] 45cm Vascular Stretch Sterile - [id number] Start: 07-24-2022 Bit 2.8mm 300mm 200mm Drill Quick Coupling Calibrated Nonsterile - [id number] Start: 06-12-2023 Fjo-So-Q-Kind Implant - [id number] Start: 06-12-2023 3.5mm Lcp Prox T ib Plt [place] 8h/128mm/Rt-St [id number] Start: 06-12-2023 Plate Lcp Contou r Stainless Steel 93mm Bone 4 Hole Fixed Angle Limited - [id number] Start: 06-12-2023 Fibergraft Bg Putty Bone Graft Substitute Syrince 6cc [id number] Start: 06-12-2023 Screw Lcp 3.5mm T15 Full Thread Stainless Steel 75mm Bone Lock Self Tap - [id number] Start: 06-12-2023 Screw Lc-Dcp Dcp 3.5mm 6mm Full Thread Stainless Steel 36mm Bone Self - [id number] Start: 06-12-2023 Screw Lcp 3.5mm T15 Full Thread Stainless Steel 70mm Bone Fix Angle Lock - [id number] Start: 06-12-2023 Screw Lc-Dcp Dcp 3.5mm 6mm Full Thread Hexagon Stainless Steel 30mm Bone - [id number] Start: 06-12-2023 Screw Lc-Dcp Dcp 3.5mm 6mm Full Thread Stainless Steel 32mm Bone Self - [id number] Start: 06-12-2023 Cement Simplex Bone High Viscosity - [id number] Start: 07-29-2023 Goals Date Patient Goal Desired Activity /State Personal health goal Functional Status Date Assessment Result Facility 10-26-2024 Functional status Ambulates;Up ad pauline [facility] Work Phone: 10-13-2024 Functional status Ambulates;Chair [facility] Work Phone: 10-11-2024 Functional status Ambulates [facility] Work Phone: 08-07-2023 Are you deaf, or do you have serious difficulty hearing No 08/07/2023 11:12 AM Clare Molina RN No [facility] 08-07-2023 Are you blind, or do you have serious difficulty seeing, even when wearing glasses No 08/07/2023 11:12 AM Clare Molina RN No [facility] 08-07-2023 Do you have serious difficulty walking or climbing stairs Yes 08/07/2023 11:12 AM Clare Molina RN Yes [facility] 08-07-2023 Do you have difficul ty dressing or bathing Yes 08/07/2023 11:12 AM Clare Molina RN Yes [facility] 08-07-2023 Because of a physica l, mental, or emotional condition, do you have difficulty doing errands alone such as visiting a physician's office or shopping Yes 08/07/2023 11:12 AM Clare Molina RN Yes [facility] 01-29-2023 Functional status Ambulates [facility] Work Phone: 09-12-2022 Functional status Dangle Feet [facility] Work Phone: Mental Status Date Assessment Result Facility 10-26-2024 Cognitive function Cooperative;Anxious [facility] Work Phone: 10-25-2024 Cognitive function Voice/Name [facility] Work Phone: 10-13-2024 Cognitive function Voice/Name [facility] Work Phone: 10-10-2024 Cognitive function Voice/Name [facility] Work Phone: 08-07-2023 Because of a physica l, mental, or emotional condition, do you have serious difficulty concentrating, remembering, or making decisions No 08/07/2023 11:12 AM EDT Clare Yadav RN No [facility] 07-02-2023 Cognitive function Voice/Name [facility] Work Phone: 06-29-2023 Cognitive function Level Of Cons ciousness Awake;Alert;Appropriate [facility] Work Phone: 02-04-2023 Cognitive function Level Of Cons ciousness Awake;Alert;Appropriate;Fol lows Commands [facility] Work Phone: 01-29-2023 Cognitive function Voice/Name [facility] Work Phone: 10-30-2022 Cognitive function Voice/Name [facility] Work Phone: 09-12-2022 Cognitive function Awake;Alert;Appropriat e [facility] Work Phone: 09-11-2022 Cognitive function Voice/Name [facility] Work Phone: 07-29-2021 Cognitive function Level Of Cons ciousness Awake;Alert;Appropriate;Fol lows Commands [facility] Work Phone: Clinical Notes 04-16-2017 to 10-28-2024 Telephone Encounter - Gloria Fried RN - 10/28/2024 1:06 PM EDTTelephone Encounter - Gloria Fried RN - 10/28/2024 1:06 PM EDT Note Date & Type Note Facility 10-28-2024 Telephone encount er Note Summary: ROCK CRUSHER OPERATOR order request Jodi Whitfield placed a ROCK CRUSHER OPERATOR order for Meal assistance, private CORK PRESSING MACHINE OPERATOR assistance and transportation to MD appts. [facility] Work Phone: 10-28-2024 Miscellaneous Notes Summary: ROCK CRUSHER OPERATOR order request Jodi Whitfield placed a ROCK CRUSHER OPERATOR order for Meal assistance, private CORK PRESSING MACHINE OPERATOR assistance and transportation to MD appts. documented in this encounter [facility] 10-26-2024 Consult note [facility] 10-26-2024 Discharge summary Note Date/Time October 26, 2024 1:06pm [facility] Medical Records Department [address] [place] [address] Discharge Summary 10/26/24 1300 MR#: [id number] Acct: [id number] Name: Margareth GONZALEZ Rep #:[id number] : 1965 59 From: Sylvester Ortiz DO PCP: Dr. Ignacio Cheatham MD Status:ADM I N Location: [place] [address] Providers Date of Admission: 10/24/24 Primary Care Physician: Dr. Ignacio Cheatham MD Consultations 10/24/24 20:31 Consult: Nephrology Routine Consulting Provider: Sofía Hill Reason for Consult: ESRD on HD, fluid overloaded EMERGENT Consult: No MD Notified: Yes Date Notified: 10/25/24 Time Notified: 01:15 Method of Notification: Answering Service Reason For Visit: hypoxia and fluid overload Diagnosis Discharge Diagnosis (1) (HFpEF) heart failure with preserved ejection fraction: Status: Acute Code(s): I50.30 - Unspecified diastolic (congestive) heart failure Plan: Resolved. Improved with dialysis. Echo from March 18, 2024 showed EF of 65%. Primarily this is due to volume overload from end-stage renal disease on hemodialysis. Patient did receive IV furosemide but ultimately the patient needs dialysis which nephrology is on consultation. Current weight is 84.4 kg. Patient had a weight of 79.8 back on October 13 whichmay be around his dry weight. Plan Chronic medical conditions * Hypertension: Continue with nifedipine * End-stage renal disease: Nephrology on consult as above. Continue with sevelamer. * Mood disorder: Continue duloxetine * GERD: Continue with PPI VTE prophylaxis with subcu heparin Medications at Discharge Home Medications cholecalciferol (vitamin D3) 25 mcg (1,000 unit) capsule (Vitamin D3) 5,000 unitPO DAILY SUPPLEMENT 10/03/13 omeprazole 20 mg capsule,delayed release 20 mg PO DAILY GERD 08/23/14 melatonin 5 mg capsule 10 mg PO QHS sleep 05/27/16 atorvastatin 40 mg tablet 40 mg PO QHS CHOLESTEROL 09/10/22 sevelamer carbonate 800 mg tablet 1,600 mg PO TID food 02/04/23 hydroxyzine HCl 50 mg tablet 50 mg PO Q6H PRN itching 06/29/23 acetaminophen 325 mg capsule (Tylenol) 650 mg PO Q6H PRN pain 07/02/23 ondansetron HCl 4 mg tablet 4 mg PO Q8H PRN PRN nausea and vomiting 07/02/23 dulaglutide 0.75 mg/0.5 mL subcutaneous pen injector (Trulicity) 0.75 mg subcut QWEEK injection 09/06/24 duloxetine 30 mg capsule,delayed release 30 mg PO DAILY mood 09/06/24 nifedipine 90 mg tablet,extended release 90 mg PO DAILY BP 09/06/24 pregabalin 25 mg capsule 50 mg PO QHS neuropathy 09/06/24 albuterol sulfate 90 mcg/actuation aerosol inhaler 2 puff inhalation Q2H PRN shortness of breath or wheezing 10/10/24 calcitriol 0.25 mcg capsule 1.5 mcg PO TUTHSA dialysis 10/10/24 sucroferric oxyhydroxide 500 mg chewable tablet (Velphoro) 500 mg PO TID phosphate inhib 10/10/24 torsemide 100 mg tablet 100 mg PO TUTHSA edema 10/10/24 fluticasone propionate 50 mcg/actuation nasal spray,suspension 2 spray intranasal Q12H allergies 10/24/24 cyclobenzaprine 5 mg tablet 5 mg PO TID PRN muscle spasm #14 tabs 10/26/24 guaifenesin 600 mg tablet, extended release 12 hr (Mucinex) 600 mg PO QHS mucus 10/26/24 Hospital Course Operations None Summary of Care Provided Hospital Course: Patient presents with shortness of breath secondary to CHF. CHF. She presentedhere and underwent dialysis where they removed 4.3 L. Patient has been on room air has ambulated today dropped down to 90% so therefore will not require oxygenupon discharge. Patient will be discharged stable condition Weight / BMI Weight Weight: 83 kg Body Mass Index (BMI) 27.8 ABG / Lab / Microbiology Data 10/26/24 05:29 10/26/24 05:29 Laboratory: Laboratory Results - last 24 hr 10/25/24 16:38: POC Glucose 245 H 10/25/24 21:15: POC Glucose 192 H 10/26/24 05:29: WBC 6.3, RBC 2.82 L, Hgb 8.5 L, Hct 26.4 L, MCV 93.6, MCH 30.1, MCHC 32.2, RDW Std Deviation 47.3 H, RDW Coeff of Ben 14.2, Plt Count 141 L, MPV10.4, Immature Gran % (Auto) 0.500, Neut % (Auto) 71.4 H, Lymph % (Auto) 15.7 L,[place] % (Auto) 7.8, Eos % (Auto) 3.8, Baso % (Auto) 0.8, Absolute Neuts (auto) 4.5, Absolute Lymphs (auto) 0.99, Nucleated RBC % 0, Sodium 131 L, Potassium 4.3, Chloride 94 L, Carbon Dioxide 25.5, Anion Gap 12, BUN 26 H, Creatinine 5.00H, Estim Creat Clear Calc 13.68 L, Est GFR (MDRD) Non-Af 9 L, BUN/Creatinine Ratio 5.2 L, Glucose 165 H, Calcium 9.2 10/26/24 06:01: POC Glucose 147 H 10/26/24 11:53: POC Glucose 239 H Radiography Diagnostic Testing: Radiology Impression Echocardiogram 10/24/24 21:43 Interpretation Summary The estimated ejection fraction is 25???30 %. Severe LV systolic dysfunction with global LV hypokinesia Significant change from previous echocardiogram in March 2024 with remarkably reduced LV systolic dysfunction. Ordering Physician: Mone Riggs Performed By: Cande Shrestha RDCS D/C Instructions DC O2, CPAP, BIPAP Needs Home O2 Discharge instructions: No Meaningful Use Info Meaningful Use Meaningful Use Diagnoses (Choose all that apply): None applicable Discharge Plan Admission Admit Date/Time: 10/24/24 18:54 Primary Reason for Your Visit: CHF exacerbation Attending Provider: Sylvester Ortiz Primary Care Provider: Ignacio Cheatham Consulting Providers: Sofía Hill; Mone Riggs Instructions Additional Instructions / Restrictions: You shortness of breath due to fluid in your lungs which improved after removinggreater than 4 L of fluid from your lungs. Continue to monitor weight daily. Follow-up with dialysis per routine. Discharge Orders/Prescriptions Prescriptions: New cyclobenzaprine 5 mg tablet 5 mg PO TID PRN (Reason: muscle spasm) Qty: 14 0RF Continued cholecalciferol (vitamin D3) [Vitamin D3] 1,000 UNIT capsule 5,000 unit PO DAILY omeprazole 20 MG capsule 20 mg PO DAILY melatonin 5 MG capsule 10 mg PO QHS atorvastatin 40 mg tablet 40 mg PO QHS sevelamer carbonate 800 mg tablet 1,600 mg PO TID acetaminophen [Tylenol] 325 mg capsule 650 mg PO Q6H PRN (Reason: pain ) ondansetron HCl 4 mg tablet 4 mg PO Q8H PRN PRN (Reason: nausea and vomiting) hydroxyzine HCl 50 mg tablet 50 mg PO Q6H PRN (Reason: itching) nifedipine 90 mg tablet extended release 90 mg PO DAILY Patient Comments: [NO ORIGINAL SIG] duloxetine 30 mg capsule,delayed release(DR/EC) 30 mg PO DAILY pregabalin 25 mg capsule 50 mg PO QHS Trulicity 0.75 mg/0.5 mL pen injector 0.75 mg subcut QWEEK torsemide 100 mg tablet 100 mg PO TUTHSA Velphoro 500 mg tablet,chewable 500 mg PO TID calcitriol 0.25 mcg capsule 1.5 mcg PO TUTHSA Rx Instructions: 1.5 mcg orally 3XW; albuterol sulfate 90 mcg/actuation HFA aerosol inhaler 2 puff INHALATION Q2H PRN (Reason: shortness of breath or wheezing) fluticasone propionate 50 mcg/actuation spray,suspension 2 spray INTRANASAL Q12H Patient Comments: [NO ORIGINAL SIG] guaifenesin [Mucinex] 600 mg tablet extended release 12hr 600 mg PO QHS Referrals / Follow Up: Ignacio Cheatham MD [Primary Care Provider] - Within 2 Weeks Disposition Disposition (needs filled in before D/C Order can be placed): Home, Self Care Charges/Coding Visit Charges Inpatient E&M: 00488 Disch Hosp 10/26/24 1306 <Electronically signed by Sylvester Ortiz DO> Cosigner Signature (if applicable): CC: Dr. Sylvester Ortiz DO; Dr. Ignacio Cheatham MD~ Signed [facility] Work Phone: 1(132) 926-964808-27-2025 Progress note Author Sylvester Ortiz [facility] Note Date/Time October 26, 2024 1: 00pm [facility] Medical Records Department [address] [place] [address] Progress Note - Hospitalist 10/26/24 0832 MR#: [id number] Acct: [id number] Name: Margareth GONZALEZ Rep #:[id number] : 1965 59 From: Sylvester Ortiz DO PCP: Dr. Ignacio Cheatham MD Status:ADM I N Location: [place] [address] Reason for Visit Chief Complaint: SOB Subjective Subjective Breathing better. Objective Data Objective Data Vital Signs: Vital Signs Temp Pulse Resp BP Pulse Ox O2 Del Method O2 Flow Rate 36.4 C L 63 16 118/71 99 Nasal Cannula 2 10/26/24 03:05 10/26/24 03:05 10/26/24 03:05 10/26/24 03:05 10/26/24 08:13 10/26/24 08:13 10/26/24 08:13 Oxygen Flow Rate (L/min) 2 Oxygen Delivery Method Nasal Cannula Weight: 83 kg Body Mass Index (BMI) 27.8 Intake & Output: Intake and Output for Last 24 Hours 10/24/24 10/25/24 10/26/24 23:59 23:59 23:59 Intake Total 120 / 120 Output Total 4620 / 4620 Balance 120 / 120 -4620 / -4620 Lab / Micro Data 10/26/24 05:29 10/26/24 05:29 Labs: Laboratory Results - last 24 hr 10/25/24 11:37: POC Glucose 168 H 10/25/24 16:38: POC Glucose 245 H 10/25/24 21:15: POC Glucose 192 H 10/26/24 05:29: WBC 6.3, RBC 2.82 L, Hgb 8.5 L, Hct 26.4 L, MCV 93.6, MCH 30.1, MCHC 32.2, RDW Std Deviation 47.3 H, RDW Coeff of Ben 14.2, Plt Count 141 L, MPV10.4, Immature Gran % (Auto) 0.500, Neut % (Auto) 71.4 H, Lymph % (Auto) 15.7 L,[place] % (Auto) 7.8, Eos % (Auto) 3.8, Baso % (Auto) 0.8, Absolute Neuts (auto) 4.5, Absolute Lymphs (auto) 0.99, Nucleated RBC % 0, Sodium 131 L, Potassium 4.3, Chloride 94 L, Carbon Dioxide 25.5, Anion Gap 12, BUN 26 H, Creatinine 5.00H, Estim Creat Clear Calc 13.68 L, Est GFR (MDRD) Non-Af 9 L, BUN/Creatinine Ratio 5.2 L, Glucose 165 H, Calcium 9.2 10/26/24 06:01: POC Glucose 147 H Radiography Diagnostic Testing: Radiology Impression Echocardiogram 10/24/24 21:43 Interpretation Summary The estimated ejection fraction is 25???30 %. Severe LV systolic dysfunction with global LV hypokinesia Significant change from previous echocardiogram in March 2024 with remarkably reduced LV systolic dysfunction. Ordering Physician: Mone Riggs Performed By: Cande Shrestha RDCS Physical Exam Const alert and no apparent distress Constitutional Narrative: Up ambulating with therapy on room air. Patient dropped down to 90% with ambulation. HEENT head/scalp atraumatic and moist oral mucous membranes Resp normal respiratory effort, no retractions, no use of accessory muscles and clearto auscultation bilaterally Assessment & Plan Assessment/Plan (1) (HFpEF) heart failure with preserved ejection fraction: PLAN: Resolved. Improved with dialysis. Echo from March 18, 2024 showed EF of 65%. Primarily this is due to volume overload from end-stage renal disease on hemodialysis. Patient did receive IV furosemide but ultimately the patient needs dialysis which nephrology is on consultation. Current weight is 84.4 kg. Patient had a weight of 79.8 back on October 13 whichmay be around his dry weight. PLAN: Plan Chronic medical conditions * Hypertension: Continue with nifedipine * End-stage renal disease: Nephrology on consult as above. Continue with sevelamer. * Mood disorder: Continue duloxetine * GERD: Continue with PPI VTE prophylaxis with subcu heparin 10/26/24 1300 <Electronically signed by Sylvester Ortiz DO> Cosigner Signature (if applicable): CC: ~ Signed [facility] Work Phone: [phone]) 112-882208-27-2025 Telephone encounter Note* Telephone Encounter - Ignacio Cheatham MD - 10/26/2024 2:43 PM EDT ok [facility]08-27-2025 Miscellaneous Notes* Telephone Encounter - Ignacio Cheatham MD - 10/26/2024 2:43 PM EDT ok * Telephone Encounter - Audra Crespo LPN - 10/26/2024 1:56 PM EDT Ignacio Cheatham MD Please advise if you are agreeable to signing and following for C services? Our Clinicians will be sending the Plan of Care to you for review and approval. They will reach out for any appropriate orders required to provide home care services for the patient. We are not able to initiate HHC services without a following provider. Home care clinicians may also obtain orders from [facility] Virtualist Providers Thank you and we would be happy to answer any questions. Audra Crespo LPN 10/26/2024 1:56 PM documented in [facility] encounter[facility] Telephone encounter Note * Telephone Encounter - Audra Crespo LPN - 10/26/2024 2:14 PM EDT Date/Time: 10/26/2024 2:15 PM Spoke with Halle @ phone #: [phone] - Preferred # for contact: [phone] Have you received help from a home care company in the last 60 days? No Can you commit to a visit in this time frame? Yes - If no, please advise that we would not be able to move forward with services and they would need to contact their provider when they are ready to start services. Are you agreeable to [facility] services? Yes What address will we be seeing you at? [address] [facility] [address] Do you have any upcoming appointments or things we need to schedule around? Yes dialysis T, TH. S Do you have a teachable CG or can you manage your care independently? No Who? Independent [facility] Work Phone: [phone] Miscellaneous Notes* Telephone Encounter - Audra Crespo LPN - 10/26/2024 2:14 PM EDT Date/Time: 10/26/2024 2:15 PM Spoke with Halle @ phone #: [phone] - Preferred # for contact: [phone] Have you received help from a home care company in the last 60 days? No Can you commit to a visit in this time frame? Yes - If no, please advise that we would not be able to move forward with services and they would need to contact their provider when they are ready to start services. Are you agreeable to [facility] services? Yes What address will we be seeing you at? [address] [facility] [address] Do you have any upcoming appointments or things we need to schedule around? Yes dialysis T, TH. S Do you have a teachable CG or can you manage your care independently? No Who? Independent [facility] Telephone encounter Note * Telephone Encounter - Audra Crespo LPN - 10/26/2024 1:56 PM EDT Ignacio Cheatham MD Please advise if you are agreeable to signing and following for HHC services? Our Clinicians will be sending the Plan of Care to you for review and approval. They will reach out for any appropriate orders required to provide home care services for the patient. We are not able to initiate HHC services without a following provider. Home care clinicians may also obtain orders from [facility] Virtualist Providers Thank you and we would be happy to answer any questions. Audra Crespo LPN 10/26/2024 1:56 PM [facility] Work Phone: [phone] Discharge summary [facility] Medical Records Department [address] [place] [id number] Discharge Summary 10/26/24 1300 MR#: [id number] Acct: [id number] Name: Margareth GONZALEZ Rep #:[id number] : 1965 59 From: Sylvester Ortiz DO PCP: Dr. Ignacio Cheatham MD Status:ADM I N Location: [place] [address] Providers Date of Admission: 10/24/24 Primary Care Physician: Dr. Ignacio Cheatham MD Consultations 10/24/24 20:31 Consult: Nephrology Routine Consulting Provider: Sofía Hill Reason for Consult: ESRD on HD, fluid overloaded EMERGENT Consult: No MD Notified: Yes Date Notified: 10/25/24 Time Notified: 01:15 Method of Notification: Answering Service Reason For Visit: hypoxia and fluid overload Diagnosis Discharge Diagnosis (1) (HFpEF) heart failure with preserved ejection fraction: Status: Acute Code(s): I50.30 - Unspecified diastolic (congestive) heart failure Plan: Resolved. Improved with dialysis. Echo from March 18, 2024 showed EF of 65%. Primarily this is due to volume overload from end-stage renal disease on hemodialysis. Patient did receive IV furosemide but ultimately the patient needs dialysis which nephrology is on consultation. Current weight is 84.4 kg. Patient had a weight of 79.8 back on October 13 whichmay be around his dry weight. Plan Chronic medical conditions * Hypertension: Continue with nifedipine * End-stage renal disease: Nephrology on consult as above. Continue with sevelamer. * Mood disorder: Continue duloxetine * GERD: Continue with PPI VTE prophylaxis with subcu heparin Medications at Discharge Home Medications cholecalciferol (vitamin D3) 25 mcg (1,000 unit) capsule (Vitamin D3) 5,000 unitPO DAILY [id number]/04/14 omeprazole 20 mg capsule,delayed release 20 mg PO DAILY GERD 08/23/14 melatonin 5 mg capsule 10 mg PO QHS sleep 05/27/16 atorvastatin 40 mg tablet 40 mg PO QHS CHOLESTEROL 09/10/22 sevelamer carbonate 800 mg tablet 1,600 mg PO TID food 02/04/23 hydroxyzine HCl 50 mg tablet 50 mg PO Q6H PRN itching 06/29/23 acetaminophen 325 mg capsule (Tylenol) 650 mg PO Q6H PRN pain 07/02/23 ondansetron HCl 4 mg tablet 4 mg PO Q8H PRN PRN nausea and vomiting 07/02/23 dulaglutide 0.75 mg/0.5 mL subcutaneous pen injector (Trulicity) 0.75 mg subcut QWEEK injection 09/06/24 duloxetine 30 mg capsule,delayed release 30 mg PO DAILY mood 09/06/24 nifedipine 90 mg tablet,extended release 90 mg PO DAILY BP 09/06/24 pregabalin 25 mg capsule 50 mg PO QHS neuropathy 09/06/24 albuterol sulfate 90 mcg/actuation aerosol inhaler 2 puff inhalation Q2H PRN shortness of breath orwheezing 10/10/24 calcitriol 0.25 mcg capsule 1.5 mcg PO TUTHSA dialysis 10/10/24 sucroferric oxyhydroxide 500 mg chewable tablet (Velphoro) 500 mg PO TID phosphate inhib 10/10/24 torsemide 100 mg tablet 100 mg PO TUTHSA edema 10/10/24 fluticasone propionate 50 mcg/actuation nasal spray,suspension 2 spray intranasal Q12H allergies 10/24/24 cyclobenzaprine 5 mg tablet 5 mg PO TID PRN muscle spasm #14 tabs 10/26/24 guaifenesin 600 mg tablet, extended release 12 hr (Mucinex) 600 mg PO QHS mucus 10/26/24 Hospital Course Operations None Summary of Care Provided Hospital Course: Patient presents with shortness of breath secondary to CHF. CHF. She presentedhere and underwent dialysis where they removed 4.3 L. Patient has been on room air has ambulated today dropped down to 90% so therefore will not require oxygenupon discharge. Patient will be discharged stable condition Weight / BMI Weight Weight: 83 kg Body Mass Index (BMI) 27.8 ABG / Lab / Microbiology Data 10/26/24 05:29 10/26/24 05:29 Laboratory: Laboratory Results - last 24 hr 10/25/24 16:38: POC Glucose 245 H 10/25/24 21:15: POC Glucose 192 H 10/26/24 05:29: WBC 6.3, RBC 2.82 L, Hgb 8.5 L, Hct 26.4 L, MCV 93.6, MCH 30.1, MCHC 32.2, RDW Std Deviation 47.3 H, RDW Coeff of Ben 14.2, Plt Count 141 L, MPV10.4, Immature Gran % (Auto) 0.500, Neut % (Auto) 71.4 H, Lymph % (Auto) 15.7 L,[place] % (Auto) 7.8, Eos % (Auto) 3.8, Baso % (Auto) 0.8, Absolute Neuts (auto) 4.5, Absolute Lymphs (auto) 0.99, Nucleated RBC % 0, Sodium 131 L, Potassium 4.3,Chloride 94 L, Carbon Dioxide 25.5, Anion Gap 12, BUN 26 H, Creatinine 5.00H, Estim Creat Clear Calc 13.68 L, Est GFR (MDRD) Non-Af 9 L, BUN/Creatinine Ratio 5.2 L, Glucose 165 H, Calcium 9.2 10/26/24 06:01: POC Glucose 147 H 10/26/24 11:53: POC Glucose 239 H Radiography Diagnostic Testing: Radiology Impression Echocardiogram 10/24/24 21:43 Interpretation Summary The estimated ejection fraction is 25???30 %. Severe LV systolic dysfunction with global LV hypokinesia Significant change from previous echocardiogram in March 2024 with remarkably reduced LV systolicdysfunction. Ordering Physician: Mone Riggs Performed By: Cande Shrestha RDCS D/C Instructions DC O2, CPAP, BIPAP Needs Home O2 Discharge instructions: No Meaningful Use Info Meaningful Use Meaningful Use Diagnoses (Choose all that apply): None applicable Discharge Plan Admission Admit Date/Time: 10/24/24 18:54 Primary Reason for Your Visit: CHF exacerbation Attending Provider: Sylvester Ortiz Primary Care Provider: Ignacio Cheatham Consulting Providers: Sofía Hill; Mone Riggs Instructions Additional Instructions / Restrictions: You shortness of breath due to fluid in your lungs which improved after removinggreater than 4 L offluid from your lungs. Continue to monitor weight daily. Follow-up with dialysis per routine. Discharge Orders/Prescriptions Prescriptions: New cyclobenzaprine 5 mg tablet 5 mg PO TID PRN (Reason: muscle spasm) Qty: 14 0RF Continued cholecalciferol (vitamin D3) [Vitamin D3] 1,000 UNIT capsule 5,000 unit PO DAILY omeprazole 20 MG capsule 20 mg PO DAILY melatonin 5 MG capsule 10 mg PO QHS atorvastatin 40 mg tablet 40 mg PO QHS sevelamer carbonate 800 mg tablet 1,600 mg PO TID acetaminophen [Tylenol] 325 mg capsule 650 mg PO Q6H PRN (Reason: pain ) ondansetron HCl 4 mg tablet 4 mg PO Q8H PRN PRN (Reason: nausea and vomiting) hydroxyzine HCl 50 mg tablet 50 mg PO Q6H PRN (Reason: itching) nifedipine 90 mg tablet extended release 90 mg PO DAILY Patient Comments: [NO ORIGINAL SIG] duloxetine 30 mg capsule,delayed release(DR/EC) 30 mg PO DAILY pregabalin 25 mg capsule 50 mg PO QHS Trulicity 0.75 mg/0.5 mL pen injector 0.75 mg subcut QWEEK torsemide 100 mg tablet 100 mg PO TUTHSA Velphoro 500 mg tablet,chewable 500 mg PO TID calcitriol 0.25 mcg capsule 1.5 mcg PO TUTHSA Rx Instructions: 1.5 mcg orally 3XW; albuterol sulfate 90 mcg/actuation HFA aerosol inhaler 2 puff INHALATION Q2H PRN (Reason: shortness of breath or wheezing) fluticasone propionate 50 mcg/actuation spray,suspension 2 spray INTRANASAL Q12H Patient Comments: [NO ORIGINAL SIG] guaifenesin [Mucinex] 600 mg tablet extended release 12hr 600 mg PO QHS Referrals / Follow Up: Ignacio Cheatham MD [Primary Care Provider] - Within 2 Weeks Disposition Disposition (needs filled in before D/C Order can be placed): Home, Self Care Charges/Coding Visit Charges Inpatient E&M: 30147 Disch Hosp 10/26/24 0736 Cosigner Signature (if applicable): CC: Dr. Sylvester Ortiz DO; Dr. Ignacio Cheatham MD~ Signed [facility]08-27-2025 Telephone encounter Note* Telephone Encounter - Barbara Simmons LPN - 10/26/2024 1:02 PM EDT Called and spoke with pt, she stated she is currently admitted to [facility] for breathing concerns. Called and spoke with sister Halle, notified her since there was a change in condition we will have to cancel referral. Pt will need a new F2F / virtual visit with provider for hospital follow up and new orders placed. Barbara Simmons LPN [facility] Work Phone: [phone] Miscellaneous Notes* Telephone Encounter - Barbara Simmons LPN - 10/26/2024 1:02 PM EDT Called and spoke with pt, she stated she is currently admitted to [facility] for breathing concerns. Called and spoke with sister Halle, notified her since there was a change in condition we will have to cancel referral. Pt will need a new F2F / virtual visit with provider for hospital follow up and new orders placed. Barbara Simmons LPN documented [facility]25 [facility]08-27-2025 Progress note [facility] Medical Records Department [address] [place] [address] Progress Note - Hospitalist 10/26/24 0832 MR#: [id number] Acct: [id number] Name: Margareth GONZALEZ Rep #:[id number] : 1965 59 From: Sylvester Ortiz DO PCP: Dr. Ignacio Cheatham MD Status:ADM I N Location: [place] [address] Reason for Visit Chief Complaint: SOB Subjective Subjective Breathing better. Objective Data Objective Data Vital Signs: Vital Signs Temp Pulse Resp BP Pulse Ox O2 Del Method O2 Flow Rate 36.4 C L 63 16 118/71 99 Nasal Cannula 2 10/26/24 03:05 10/26/24 03:05 10/26/24 03:05 10/26/24 03:05 10/26/24 08:13 10/26/24 08:13 10/26/24 08:13 Oxygen Flow Rate (L/min) 2 Oxygen Delivery Method Nasal Cannula Weight: 83 kg Body Mass Index (BMI) 27.8 Intake & Output: Intake and Output for Last 24 Hours 10/24/24 10/25/24 10/26/24 23:59 23:59 23:59 Intake Total 120 / 120 Output Total 4620 / 4620 Balance 120 / 120 -4620 / -4620 Lab / Micro Data 10/26/24 05:29 10/26/24 05:29 Labs: Laboratory Results - last 24 hr 10/25/24 11:37: POC Glucose 168 H 10/25/24 16:38: POC Glucose 245 H 10/25/24 21:15: POC Glucose 192 H 10/26/24 05:29: WBC 6.3, RBC 2.82 L, Hgb 8.5 L, Hct 26.4 L, MCV 93.6, MCH 30.1, MCHC 32.2, RDW Std Deviation 47.3 H, RDW Coeff of Ben 14.2, Plt Count 141 L, MPV10.4, Immature Gran % (Auto) 0.500, Neut % (Auto) 71.4 H, Lymph % (Auto) 15.7 L,[place]itkin % (Auto) 7.8, Eos % (Auto) 3.8, Baso % (Auto) 0.8, Absolute Neuts (auto) 4.5, Absolute Lymphs (auto) 0.99, Nucleated RBC % 0, Sodium 131 L, Potassium 4.3,Chloride 94 L, Carbon Dioxide 25.5, Anion Gap 12, BUN 26 H, Creatinine 5.00H, Estim Creat Clear Calc 13.68 L, Est GFR (MDRD) Non-Af 9 L, BUN/Creatinine Ratio 5.2 L, Glucose 165 H, Calcium 9.2 10/26/24 06:01: POC Glucose 147 H Radiography Diagnostic Testing: Radiology Impression Echocardiogram 10/24/24 21:43 Interpretation Summary The estimated ejection fraction is 25???30 %. Severe LV systolic dysfunction with global LV hypokinesia Significant change from previous echocardiogram in March 2024 with remarkably reduced LV systolicdysfunction. Ordering Physician: Mone Riggs Performed By: Cande Shrestha FATOUMATA Physical Exam Const alert and no apparent distress Constitutional Narrative: Up ambulating with therapy on room air. Patient dropped down to 90% with ambulation. HEENT head/scalp atraumatic and moist oral mucous membranes Resp normal respiratory effort, no retractions, no use of accessory muscles and clearto auscultation bilaterally Assessment & Plan Assessment/Plan (1) (HFpEF) heart failure with preserved ejection fraction: PLAN: Resolved. Improved with dialysis. Echo from March 18, 2024 showed EF of 65%. Primarily this is due to volume overload from end-stage renal disease on hemodialysis. Patient did receive IV furosemide but ultimately the patient needs dialysis which nephrology is on consultation. Current weight is 84.4 kg. Patient had a weight of 79.8 back on October 13 whichmay be around his dry weight. PLAN: Plan Chronic medical conditions * Hypertension: Continue with nifedipine * End-stage renal disease: Nephrology on consult as above. Continue with sevelamer. * Mood disorder: Continue duloxetine * GERD: Continue with PPI VTE prophylaxis with subcu heparin 10/26/24 1300 Cosigner Signature (if applicable): CC: ~ Signed [facility]08-27-2025 Miscellaneous Notes* [facility] SOC/AMBER - Audra Simon RN - 10/26/2024 11:52 AM EDT Attempted to schedule SOC visit for today. Unable to complete due to patient/caregiver unable to bereached. SOC/AMBER will be rescheduled for next available appointment. [facility] Patient's home Note* [facility] SOC/AMBER - Audra Simon RN - 10/26/2024 11:52 AM EDT Attempted to schedule SOC visit for today. Unable to complete due to patient/caregiver unable to bereached. SOC/AMBER will be rescheduled for next available appointment. [facility] Work Phone: [phone] 383-482708-26-2025 Telephone encounter Note* Telephone Encounter - Audra Simon RN - 10/25/2024 5:09 PM EDT Called patient to confirm and schedule start of care visit. No answer. No voicemail available. [facility] Work Phone: [phone] 350-434908-26-2025 Miscellaneous Notes* Telephone Encounter - Audra Simon RN - 10/25/2024 5:09 PM EDT Called patient to confirm and schedule start of care visit. No answer. No voicemail available. documented in this encounterOhio[facility]08-[facility]-2025 Consult note Author Sofía Hill [facility] Note Date/Time October 25, 2024 2: 27pm [facility] Medical Records Department [address] [place] [address] Consultation - Nephrology 10/25/24 1425 MR#: [id number] Acct: [id number] Name: Margareth GONZALEZ Rep #:[id number] : 1965 59 From: Sofía velasco MD PCP: Dr. Ignacio Cheatham MD Status:ADM I N Location: [place] [address] Assessment & Plan Assessment/Plan (1) ESRD (end stage renal disease) on dialysis: PLAN: On hemodialysis Thursday, , Thursday schedule. Reviewed records from outpatient dialysis unit. Dry weight is around 80.5 kg. And Thursday she is 80 point 8-1/2 dialysis, close to dry weight. Today she came in about 83 kg which is only about 2-1/2 kg again. Still had shortness of breath. Chest x-rayreviewed, looks somewhat wet. CT chest from last admission showed right-sided pleural effusion, edema pattern. Will continue to fluid challenge. Up until recently she was severely cramping with dialysis hence dry weight had to be adjusted up. Prior to that she had low blood pressures as well. Other events include right knee surgery, it seems one of the nails is protrudingoutside. She is scheduling appointment with orthopedics as outpatient. HPI Consult Data Date of Consult: 10/25/24 HPI Narrative Reason for Consultation: ESRD. HPI Narrative: Margareth GONZALEZ, is a 59 F who presents to the hospital with shortness of breath. Nephrology on consultation due to ESRD. On hemodialysis Thursday, , Thursday schedule. Last dialysis was Thursday, uneventful. Dry weight is around 80.5 kg, she is close to dry weight. Presented with shortness of breath,chest x-ray looked better on admission. Received dialysis this morning, 4 L removed. Feels better. Still on oxygen. Not much peripheral edema. [facility] Medical History (Updated 10/25/24 @ 09:[address] Sylvester Ortiz, DO) Anxiety Depression CPAP (continuous positive airway pressure) dependence COPD (chronic obstructive pulmonary disease) Anemia Hyperkalemia Osteoarthritis of right knee Fracture of fibula, right, closed Pathological fracture, right tibia, initial encounter for [...] disorder Benign essential hypertension History of asthma Medical History no medical history Home Medications ?Medication ?Instructions ?Recorded ?Last Taken ?Type cholecalciferol (vitamin D3) 25 5,000 unit PO DAILY CORNELL PPLEMENT 10/03/13 10/23/24 21:00 History mcg (1,000 unit) capsule (Vitamin 5,00 0 unit D3) omeprazole 20 mg capsule,delayed 20 mg PO DAILY GERD 0 08/23/14 10/23/24 21:00 History release 20 mg melatonin 5 mg capsule 10 mg PO QHS sleep 05/27/16 10/23/24 21:00 History 10 mg atorvastatin 40 mg tablet 40 mg PO QHS CHOLESTEROL 02/2110/23/24 21:00 History 40 mg sevelamer carbonate 800 mg tablet 1,600 mg PO TID food 02/04/23 10/10/24 History hydroxyzine HCl 50 mg tablet 50 mg PO Q6H PRN itching 06/29/23 10/23/24 21:00 History 50 mg acetaminophen 325 mg capsule 650 mg PO Q6H PRN pain Unknown History (Tylenol) ondansetron HCl 4 mg tablet 4 mg PO Q8H PRN PRN nausea and 07/02/23 10/10/24 History vomiting dulaglutide 0.75 mg/0.5 mL 0.75 mg subcut QWEEK inject ion 09/06/24 10/19/24 09:00 History subcutaneous pen injector 0.75 mg (Trulicity) duloxetine 30 mg capsule,delayed 30 mg PO DAILY mood 0 09/06/24 10/23/24 21:00 History release 30 mg nifedipine 90 mg tablet,extended 90 mg PO DAILY BP 10/2410/23/24 21:00 History release 90 mg pregabalin 25 mg capsule 50 mg PO QHS neuropathy 0710/2410/23/24 21:00 History albuterol sulfate 90 mcg/actuation 2 puff inhalation Q 2H PRN 10/10/24 10/24/24 12:30 History aerosol inhaler shortness of breath or wheez ing 2 puff calcitriol 0.25 mcg capsule 1.5 mcg PO TUTHSA dialysis 10/10/24 10/08/24 History sucroferric oxyhydroxide 500 mg 500 mg PO TID phosphat e inhib 10/10/24 10/10/24 History chewable tablet (Velphoro) torsemide 100 mg tablet 100 mg PO TUTHSA edema 10/1010/22/24 21:00 History 100 mg fluticasone propionate 50 2 spray intranasal Q12H andie rgies 10/24/24 Unknown History mcg/actuation nasal spray,suspension Allergy/AdvReac Type Severity Reaction Status Date / Time balsa juan Allergy Unknown UNKNOWN Verified 10/24/24 13:48 mold Allergy Unknown unknown Verified 10/24/24 13:48 lisinopril Allergy unknown Verified 10/24/24 13:48 Penicillins Allergy Anaphylaxis Verified 10/24/24 13:48 tetracycline (Tetracycline) Allergy Anaphylaxis Verified 10/24/24 13:48 codeine AdvReac Abd Verified 10/24/24 13:48 cramps/diarrhea diphenhydramine HCl (From AdvReac Upset Verified 10/24/24 13:48 Benadryl) Stomach hydrocodone bitartrate (From AdvReac Abd Verified 10/24/24 13:48 Vicodin) cramps/diarrhea NSAIDS (Non-Steroidal AdvReac Unknown Verified 10/24/24 13:48 Anti-Inflamma Family History Mother Heart disease Hypertension [...] type: does not use ROS ROS Narrative Negative except above Physical Exam Narrative Alert awake oriented x 3 no obvious distress no pallor no icterus no JVD s1s2 no murmurs lungs clear abdomen soft no organomegaly no edema Lab / Micro Data 10/25/24 05:30 10/25/24 05:30 Labs: Laboratory Results - last 24 hr 10/24/24 14:07: WBC 6.3, RBC 2.93 L, Hgb 8.7 L, Hct 27.1 L, MCV 92.5, MCH 29.7, MCHC 32.1, RDW Std Deviation 47.4 H, RDW Coeff of Ben 14.1, Plt Count 135 L, MPV11.4, Immature Gran % (Auto) 0.600, Neut % (Auto) 78.8 H, Lymph % (Auto) 12.8 L,[place]kin % (Auto) 4.9, Eos % (Auto) 2.4, Baso % (Auto) 0.5, Absolute Neuts (auto) 5.0, Absolute Lymphs (auto) 0.81 L, Nucleated RBC % 0, Sodium 133, Potassium 3.7, Chloride 90 L, Carbon Dioxide 25.3, Anion Gap 18 H, BUN 29 H, Creatinine 5.97 H, Estim Creat Clear Calc 11.91 L, Est GFR (MDRD) Non-Af 8 L, BUN/Creatinine Ratio 4.9 L, Glucose 316 H, Calcium 8.8, NT pro BNP II > 17433 H 10/24/24 20:58: Troponin T High Sens 234 H* D 10/24/24 22:10: POC Glucose 379 H 10/24/24 22:55: Troponin T Hi Sens 2 Hr 219 H* 10/25/24 01:10: Troponin T Hi Sens 4Hr 230 H* 10/25/24 05:30: WBC 7.1, RBC 2.74 L, Hgb 8.3 L, Hct 25.6 L, MCV 93.4, MCH 30.3, MCHC 32.4, RDW Std Deviation 47.5 H, RDW Coeff of Ben 14.2, Plt Count 143 L, MPV11.1, Immature Gran % (Auto) 0.600, Neut % (Auto) 73.0 H, Lymph % (Auto) 15.0 L,[place]kin % (Auto) 7.3, Eos % (Auto) 3.5, Baso % (Auto) 0.6, Absolute Neuts (auto) 5.2, Absolute Lymphs (auto) 1.07, Nucleated RBC % 0, Sodium 133, Potassium 3.7, Chloride 93 L, Carbon Dioxide 25.0, Anion Gap 16 H, BUN 35 H, Creatinine 6.91 H,Estim Creat Clear Calc 9.98 L*, Est GFR (MDRD) Non-Af 6 L, BUN/Creatinine Ratio 5.0 L, Glucose 125 H, Calcium 8.6 10/25/24 06:35: POC Glucose 126 H 10/25/24 11:37: POC Glucose 168 H Imaging Radiology Impression Chest X-Ray 10/24/24 16:00 IMPRESSION: Extensive pulmonary edema. Underlying focal consolidations not excluded. No pleural effusion or pneumothorax. Reading Location: [facility] 10/25/24 1427 <Electronically signed by Sofía Hill MD> Cosigner Signature (if applicable): CC: Dr. Ignacio Cheatham MD~ Signed [facility] Work Phone: 1(999) 305-504608-26-2025 Progress note Author Sylvester Ortiz [facility] Note Date/Time October 25, 2024 1: 54pm [facility] Medical Records Department [address] [place] [address] Progress Note - Hospitalist 10/25/24 0902 MR#: [id number] Acct: [id number] Name: Margareth GONZALEZ Rep #:[id number] : 1965 59 From: Sylvester Ortiz DO PCP: Dr. Ignacio Cheatham MD Status:ADM I N Location: [place] [address] Reason for Visit Chief Complaint: SOB Subjective Subjective Seen on dialysis. Breathing better. Objective Data Objective Data Vital Signs: Vital Signs Temp Pulse Resp BP Pulse Ox O2 Del Method O2 Flow Rate 36.3 C L 86 18 140/62 H 94 Nasal Cannula 2 10/25/24 04:20 10/25/24 04:20 10/25/24 04:20 10/25/24 04:20 10/25/24 07:46 10/25/24 07:46 10/25/24 07:46 Oxygen Flow Rate (L/min) 2 Oxygen Delivery Method Nasal Cannula Weight: 84.4 kg Body Mass Index (BMI) 28.3 Intake & Output: Intake and Output for Last 24 Hours 10/23/24 10/24/24 10/25/24 23:59 23:59 23:59 Intake Total 120 / 120 Output Total 100 / 100 Balance 120 / 120 -100 / -100 Lab / Micro Data 10/25/24 05:30 10/25/24 05:30 Labs: Laboratory Results - last 24 hr 10/24/24 14:07: WBC 6.3, RBC 2.93 L, Hgb 8.7 L, Hct 27.1 L, MCV 92.5, MCH 29.7, MCHC 32.1, RDW Std Deviation 47.4 H, RDW Coeff of Ben 14.1, Plt Count 135 L, MPV11.4, Immature Gran % (Auto) 0.600, Neut % (Auto) 78.8 H, Lymph % (Auto) 12.8 L,[place]kin % (Auto) 4.9, Eos % (Auto) 2.4, Baso % (Auto) 0.5, Absolute Neuts (auto) 5.0, Absolute Lymphs (auto) 0.81 L, Nucleated RBC % 0, Sodium 133, Potassium 3.7, Chloride 90 L, Carbon Dioxide 25.3, Anion Gap 18 H, BUN 29 H, Creatinine 5.97 H, Estim Creat Clear Calc 11.91 L, Est GFR (MDRD) Non-Af 8 L, BUN/Creatinine Ratio 4.9 L, Glucose 316 H, Calcium 8.8, [place]NP II > [address]89 H 10/24/24 20:58: Troponin T High Sens 234 H* D 10/24/24 22:10: POC Glucose 379 H 10/24/24 22:55: Troponin T Hi Sens 2 Hr 219 H* 10/25/24 01:10: Troponin T Hi Sens 4Hr 230 H* 10/25/24 05:30: WBC 7.1, RBC 2.74 L, Hgb 8.3 L, Hct 25.6 L, MCV 93.4, MCH 30.3, MCHC 32.4, RDW Std Deviation 47.5 H, RDW Coeff of Ben 14.2, Plt Count 143 L, MPV11.1, Immature Gran % (Auto) 0.600, Neut % (Auto) 73.0 H, Lymph % (Auto) 15.0 L,[place]kin % (Auto) 7.3, Eos % (Auto) 3.5, Baso % (Auto) 0.6, Absolute Neuts (auto) 5.2, Absolute Lymphs (auto) 1.07, Nucleated RBC % 0, Sodium 133, Potassium 3.7, Chloride 93 L, Carbon Dioxide 25.0, Anion Gap 16 H, BUN 35 H, Creatinine 6.91 H,Estim Creat Clear Calc 9.98 L*, Est GFR (MDRD) Non-Af 6 L, BUN/Creatinine Ratio 5.0 L, Glucose 125 H, Calcium 8.6 10/25/24 06:35: POC Glucose 126 H Radiography Diagnostic Testing: Radiology Impression Chest X-Ray 10/24/24 16:00 IMPRESSION: Extensive pulmonary edema. Underlying focal consolidations not excluded. No pleural effusion or pneumothorax. Reading Location: [facility] Physical Exam Const alert and no apparent distress Constitutional Narrative: Breathing better. Nontoxic. HEENT head/scalp atraumatic and moist oral mucous membranes Resp normal respiratory effort, no retractions, no use of accessory muscles and clearto auscultation bilaterally Cardio regular rate, regular rhythm, S1 normal heart sound and S2 normal heart sound GI normal to inspection, nondistended, normoactive bowel sounds, soft to palpation,non-tender and non-distended Extremity normal to inspection, full ROM and no clubbing, cyanosis or edema Neuro Sensorium / Orientation: awake and alert Assessment & Plan Assessment/Plan (1) (HFpEF) heart failure with preserved ejection fraction: PLAN: Echo from March 18, 2024 showed EF of 65%. Primarily this is due to volume overload from end-stage renal disease on hemodialysis. Patient did receive IV furosemide but ultimately the patient needs dialysis which nephrology is on consultation. Current weight is 84.4 kg. Patient had a weight of 79.8 back on October 13 whichmay be around his dry weight. On dialysis. Goal of try to get 4 L off today. PLAN: Plan Chronic medical conditions * Hypertension: Continue with nifedipine * End-stage renal disease: Nephrology on consult as above. Continue with sevelamer. * Mood disorder: Continue duloxetine * GERD: Continue with PPI VTE prophylaxis with subcu heparin Charges/Coding Visit Charges Inpatient E&M: 38729 Subs Hosp L2 10/25/24 6187 <Electronically signed by Sylvester Ortiz DO> Cosigner Signature (if applicable): CC: ~ Signed [facility] Work Phone: 1(425) 353-601508-26-2025 Consult note [facility] Medical Records Department [address] [place] [id number] Consultation - Nephrology 10/25/24 1425 MR#: [id number] Acct: [id number] Name: Margareth GONZALEZ Rep #:[id number] : 1965 59 From: Sofía velasco MD PCP: Dr. Ignacio Cheatham MD Status:ADM I N Location: [place] [address] Assessment & Plan Assessment/Plan (1) ESRD (end stage renal disease) on dialysis: PLAN: On hemodialysis Thursday, , Thursday schedule. Reviewed records from outpatient dialysis unit. Dry weight is around 80.5 kg. And Thursday she is 80 point 8-1/2 dialysis, close to dry weight. Today she came in about 83 kg which is only about 2-1/2 kg again. Still had shortness of breath. Chest x- rayreviewed, looks somewhat wet. CT chest from last admission showed right-sided pleural effusion, edema pattern. Will continue to fluid challenge. Up until recently she was severely cramping with dialysis hence dry weight had to be adjusted up. Prior to that she had low blood pressures aswell. Other events include right knee surgery, it seems one of the nails is protrudingoutside. She is scheduling appointment with orthopedics as outpatient. HPI Consult Data Date of Consult: 10/25/24 HPI Narrative Reason for Consultation: ESRD. HPI Narrative: Margareth GONZALEZ, is a 59 F who presents to the hospital with shortness of breath. Nephrology on consultation due to ESRD. On hemodialysis Thursday, , Thursday schedule. Last dialysis was Thursday, uneventful. Dry weight is around 80.5 kg, she is close to dry weight. Presented with shortness of breath,chest x- ray looked better on admission. Received dialysis this morning, 4 L removed. Feels better. Still on oxygen. Not much peripheral edema. [facility] Medical History (Updated 10/25/24 @ 09:[address] Sylvester Ortiz, DO) Anxiety Depression CPAP (continuous positive airway pressure) dependence COPD (chronic obstructive pulmonary disease) Anemia Hyperkalemia Osteoarthritis of right knee Fracture of fibula, right, closed Pathological fracture, right tibia, initial encounter for [...] disorder Benign essential hypertension History of asthma Medical History no medical history Home Medications ?Medication ?Instructions ?Recorded ?Last Taken ?Type cholecalciferol (vitamin D3) 25 5,000 unit PO DAILY CORNELL PPLEMENT 10/03/13 10/23/24 21:00 History mcg (1,000 unit) capsule (Vitamin 5,00 0 unit D3) omeprazole 20 mg capsule,delayed 20 mg PO DAILY GERD 0 08/23/14 10/23/24 21:00 History release 20 mg melatonin 5 mg capsule 10 mg PO QHS sleep 05/27/16 10/23/24 21:00 History 10 mg atorvastatin 40 mg tablet 40 mg PO QHS CHOLESTEROL 02/2110/23/24 21:00 History 40 mg sevelamer carbonate 800 mg tablet 1,600 mg PO TID food 02/04/23 10/10/24 History hydroxyzine HCl 50 mg tablet 50 mg PO Q6H PRN itching 06/29/23 10/23/24 21:00 History 50 mg acetaminophen 325 mg capsule 650 mg PO Q6H PRN pain Unknown History (Tylenol) ondansetron HCl 4 mg tablet 4 mg PO Q8H PRN PRN nausea and 07/02/23 10/10/24 History vomiting dulaglutide 0.75 mg/0.5 mL 0.75 mg subcut QWEEK inject ion 09/06/24 10/19/24 09:00 History subcutaneous pen injector 0.75 mg (Trulicity) duloxetine 30 mg capsule,delayed 30 mg PO DAILY mood 0 09/06/24 10/23/24 21:00 History release 30 mg nifedipine 90 mg tablet,extended 90 mg PO DAILY BP 10/2410/23/24 21:00 History release 90 mg pregabalin 25 mg capsule 50 mg PO QHS neuropathy 0710/2410/23/24 21:00 History albuterol sulfate 90 mcg/actuation 2 puff inhalation Q 2H PRN 10/10/24 10/24/24 12:30 History aerosol inhaler shortness of breath or wheez ing 2 puff calcitriol 0.25 mcg capsule 1.5 mcg PO TUTHSA dialysis 10/10/24 10/08/24 History sucroferric oxyhydroxide 500 mg 500 mg PO TID phosphat e inhib 10/10/24 10/10/24 History chewable tablet (Velphoro) torsemide 100 mg tablet 100 mg PO TUTHSA edema 10/1010/22/24 21:00 History 100 mg fluticasone propionate 50 2 spray intranasal Q12H andie rgies 10/24/24 Unknown History mcg/actuation nasal spray,suspension Allergy/AdvReac Type Severity Reaction Status Date / Time renetta juan Allergy Unknown UNKNOWN Verified 10/24/24 13:48 mold Allergy Unknown unknown Verified 10/24/24 13:48 lisinopril Allergy unknown Verified 10/24/24 13:48 Penicillins Allergy Anaphylaxis Verified 10/24/24 13:48 tetracycline (Tetracycline) Allergy Anaphylaxis Verified 10/24/24 13:48 codeine AdvReac Abd Verified 10/24/24 13:48 cramps/diarrhea diphenhydramine HCl (From AdvReac Upset Verified 10/24/24 13:48 Benadryl) Stomach hydrocodone bitartrate (From AdvReac Abd Verified 10/24/24 13:48 Vicodin) cramps/diarrhea NSAIDS (Non-Steroidal AdvReac Unknown Verified 10/24/24 13:48 Anti-Inflamma Family History Mother Heart disease Hypertension [...] type: does not use ROS ROS Narrative Negative except above Physical Exam Narrative Alert awake oriented x 3 no obvious distress no pallor no icterus no JVD s1s2 no murmurs lungs clear abdomen soft no organomegaly no edema Lab / Micro Data 10/25/24 05:30 10/25/24 05:30 Labs: Laboratory Results - last 24 hr 10/24/24 14:07: WBC 6.3, RBC 2.93 L, Hgb 8.7 L, Hct 27.1 L, MCV 92.5, MCH 29.7, MCHC 32.1, RDW Std Deviation 47.4 H, RDW Coeff of Ben 14.1, Plt Count 135 L, MPV11.4, Immature Gran % (Auto) 0.600, Neut % (Auto) 78.8 H, Lymph % (Auto) 12.8 L,[place] % (Auto) 4.9, Eos % (Auto) 2.4, Baso % (Auto) 0.5, Absolute Neuts (auto) 5.0, Absolute Lymphs (auto) 0.81 L, Nucleated RBC % 0, Sodium 133, Potassium 3.7,Chloride 90 L, Carbon Dioxide 25.3, Anion Gap 18 H, BUN 29 H, Creatinine 5.97 H, Estim Creat Clear Calc 11.91 L, Est GFR (MDRD) Non-Af 8 L, BUN/Creatinine Ratio 4.9 L, Glucose 316 H, Calcium 8.8, [place] II > 14230 H 10/24/24 20:58: Troponin T High Sens 234 H* D 10/24/24 22:10: POC Glucose 379 H 10/24/24 22:55: Troponin T Hi Sens 2 Hr 219 H* 10/25/24 01:10: Troponin T Hi Sens 4Hr 230 H* 10/25/24 05:30: WBC 7.1, RBC 2.74 L, Hgb 8.3 L, Hct 25.6 L, MCV 93.4, MCH 30.3, MCHC 32.4, RDW Std Deviation 47.5 H, RDW Coeff of Ben 14.2, Plt Count 143 L, MPV11.1, Immature Gran % (Auto) 0.600, Neut % (Auto) 73.0 H, Lymph % (Auto) 15.0 L,[place] % (Auto) 7.3, Eos % (Auto) 3.5, Baso % (Auto) 0.6, Absolute Neuts (auto) 5.2, Absolute Lymphs (auto) 1.07, Nucleated RBC % 0, Sodium 133, Potassium 3.7, Chloride 93 L, Carbon Dioxide 25.0, Anion Gap 16 H, BUN 35 H, Creatinine 6.91 H,Estim Creat Clear Calc 9.98 L*, Est GFR (MDRD) Non-Af 6 L, BUN/Creatinine Ratio 5.0 L, Glucose 125 H, Calcium 8.6 10/25/24 06:35: POC Glucose 126 H 10/25/24 11:37: POC Glucose 168 H Imaging Radiology Impression Chest X-Ray 10/24/24 16:00 IMPRESSION: Extensive pulmonary edema. Underlying focal consolidations not excluded. No pleural effusion or pneumothorax. Reading Location: [facility] 10/25/24 1427 Cosigner Signature (if applicable): CC: Dr. Ignacio Cheatham MD~ Signed [facility]08-26-2025 Progress note [facility] Medical Records Department [address] [place] [address] Progress Note - Hospitalist 10/25/24 0902 MR#: [id number] Acct: [id number] Name: Margareth GONZALEZ [facility] Rep #:[id number] : 1965 59 From: Sylvester Ortiz DO PCP: Dr. Ignacio Cheatham MD Status:ADM I N Location: [place] [address] Reason for Visit Chief Complaint: SOB Subjective Subjective Seen on dialysis. Breathing better. Objective Data Objective Data Vital Signs: Vital Signs Temp Pulse Resp BP Pulse Ox O2 Del Method O2 Flow Rate 36.3 C L 86 18 140/62 H 94 Nasal Cannula 2 10/25/24 04:20 10/25/24 04:20 10/25/24 04:20 10/25/24 04:20 10/25/24 07:46 10/25/24 07:46 10/25/24 07:46 Oxygen Flow Rate (L/min) 2 Oxygen Delivery Method Nasal Cannula Weight: 84.4 kg Body Mass Index (BMI) 28.3 Intake & Output: Intake and Output for Last 24 Hours 10/23/24 10/24/24 10/25/24 23:59 23:59 23:59 Intake Total 120 / 120 Output Total 100 / 100 Balance 120 / 120 -100 / -100 Lab / Micro Data 10/25/24 05:30 10/25/24 05:30 Labs: Laboratory Results - last 24 hr 10/24/24 14:07: WBC 6.3, RBC 2.93 L, Hgb 8.7 L, Hct 27.1 L, MCV 92.5, MCH 29.7, MCHC 32.1, RDW Std Deviation 47.4 H, RDW Coeff of Ben 14.1, Plt Count 135 L, MPV11.4, Immature Gran % (Auto) 0.600, Neut % (Auto) 78.8 H, Lymph % (Auto) 12.8 L,[place]kin % (Auto) 4.9, Eos % (Auto) 2.4, Baso % (Auto) 0.5, Absolute Neuts (auto) 5.0, Absolute Lymphs (auto) 0.81 L, Nucleated RBC % 0, Sodium 133, Potassium 3.7,Chloride 90 L, Carbon Dioxide 25.3, Anion Gap 18 H, BUN 29 H, Creatinine 5.97 H, Estim Creat Clear Calc 11.91 L, Est GFR (MDRD) Non-Af 8 L, BUN/Creatinine Ratio 4.9 L, Glucose 316 H, Calcium 8.8, [place] > [address] H 10/24/24 20:58: Troponin T High Sens 234 H* D 10/24/24 22:10: POC Glucose 379 H 10/24/24 22:55: Troponin T Hi Sens 2 Hr 219 H* 10/25/24 01:10: Troponin T Hi Sens 4Hr 230 H* 10/25/24 05:30: WBC 7.1, RBC 2.74 L, Hgb 8.3 L, Hct 25.6 L, MCV 93.4, MCH 30.3, MCHC 32.4, RDW Std Deviation 47.5 H, RDW Coeff of Ben 14.2, Plt Count 143 L, MPV11.1, Immature Gran % (Auto) 0.600, Neut % (Auto) 73.0 H, Lymph % (Auto) 15.0 L,[place]kin % (Auto) 7.3, Eos % (Auto) 3.5, Baso % (Auto) 0.6, Absolute Neuts (auto) 5.2, Absolute Lymphs (auto) 1.07, Nucleated RBC % 0, Sodium 133, Potassium 3.7, Chloride 93 L, Carbon Dioxide 25.0, Anion Gap 16 H, BUN 35 H, Creatinine 6.91 H,Estim Creat Clear Calc 9.98 L*, Est GFR (MDRD) Non-Af 6 L, BUN/Creatinine Ratio 5.0 L, Glucose 125 H, Calcium 8.6 10/25/24 06:35: POC Glucose 126 H Radiography Diagnostic Testing: Radiology Impression Chest X-Ray 10/24/24 16:00 IMPRESSION: Extensive pulmonary edema. Underlying focal consolidations not excluded. No pleural effusion or pneumothorax. Reading Location: [facility] Physical Exam Const alert and no apparent distress Constitutional Narrative: Breathing better. Nontoxic. HEENT head/scalp atraumatic and moist oral mucous membranes Resp normal respiratory effort, no retractions, no use of accessory muscles and clearto auscultation bilaterally Cardio regular rate, regular rhythm, S1 normal heart sound and S2 normal heart sound GI normal to inspection, nondistended, normoactive bowel sounds, soft to palpation,non-tender and non-distended Extremity normal to inspection, full ROM and no clubbing, cyanosis or edema Neuro Sensorium / Orientation: awake and alert Assessment & Plan Assessment/Plan (1) (HFpEF) heart failure with preserved ejection fraction: PLAN: Echo from March 18, 2024 showed EF of 65%. Primarily this is due to volume overload from end-stage renal disease on hemodialysis. Patient did receive IV furosemide but ultimately the patient needs dialysis which nephrology is on consultation. Current weight is 84.4 kg. Patient had a weight of 79.8 back on October 13 whichmay be around his dry weight. On dialysis. Goal of try to get 4 L off today. PLAN: Plan Chronic medical conditions * Hypertension: Continue with nifedipine * End-stage renal disease: Nephrology on consult as above. Continue with sevelamer. * Mood disorder: Continue duloxetine * GERD: Continue with PPI VTE prophylaxis with subcu heparin Charges/Coding Visit Charges Inpatient E&M: 28060 Subs Hosp L2 10/25/24 1352 Cosigner Signature (if applicable): CC: ~ Signed [facility]08-25-2025 History and physical note Author Mone Riggs [facility] Note Date/Time October 24, 2024 9: 44pm [facility] Medical Records Department [address] [place] [address] H&P Exam - Hospitalist 10/24/24 0345 MR#: [id number] Acct: [id number] Name: Margareth GONZALEZ Rep #:[id number] : 1965 59 From: Mone Riggs MD PCP: Dr. Ignacio Cheatham MD Status:ADM I N Location: [place] [address] HPI - General General Date of Admission: 10/24/24 Date of Service: 10/24/24 Chief Complaint: SOB HPI Narrative Margareth GONZALEZ, is a 59-year-old female history of GERD, end-stage renal disease on hemodialysis, hypertension, COPD, depression presented to [facility] ED 10/24/2024 with shortness of breath lung pain. In the ED patient afebrile, heart rate 97, blood pressure 136/77 respiratory rate 18 with pulse ox84% on room air, patient placed on 2 L nasal cannula. CBC with BUN of 29 and creatinine 5.97, glucose 316. CBC with normal white blood cell count and hemoglobin of 8.7. proBNP greater than 70,000 however this is the same as previous but chest x-ray demonstrated extensive pulmonary edema. Patient does still make urine so she was given IV Lasix and hospitalist consulted for admission. Patient evaluated at bedside, she reports that this morning she wokeup short of breath, her lungs hurt and she felt nauseous and exhausted, she wentback to bed because that usually helps her feel better but when she woke up she was even more short of breath and had tightening feeling, reports that she does get problems with her lungs hurting and has been happening more recently over the past couple of months and does note that she gets worsened feelings in her chest when she is fluid overloaded, also notes earlier today she had a headache and blurry vision and found her pulse ox to be 80% on room air. Does feel little bit better now that she is on oxygen in the ED and got Lasix and pain medication. Denying any upper chest pain, reports she does get chronic nausea. Denies any cough or sputum production. [facility] Medical History (Updated 10/24/24 @ 20:[address] Mone Riggs MD) Anemia Anxiety Anxiety and depression Asthma Benign essential hypertension Bipolar disorder Chronic anemia COPD (chronic obstructive pulmonary disease) COPD with asthma CPAP (continuous positive airway pressure) dependence Depression Diabetes Diabetes mellitus, type 2 Dialysis patient [...] tibia, initial encounter for fracture Sleep apnea Medical History no medical history Home Medications ?Medication ?Instructions ?Recorded ?Last Taken ?Type cholecalciferol (vitamin D3) 25 5,000 unit PO DAILY CORNELL PPLEMENT 10/03/13 10/23/24 21:00 History mcg (1,000 unit) capsule (Vitamin 5,00 0 unit D3) omeprazole 20 mg capsule,delayed 20 mg PO DAILY GERD 0 08/23/14 10/23/24 21:00 History release 20 mg melatonin 5 mg capsule 10 mg PO QHS sleep 05/27/16 10/23/24 21:00 History 10 mg atorvastatin 40 mg tablet 40 mg PO QHS CHOLESTEROL 02/2110/23/24 21:00 History 40 mg sevelamer carbonate 800 mg tablet 1,600 mg PO TID food 02/04/23 10/10/24 History hydroxyzine HCl 50 mg tablet 50 mg PO Q6H PRN itching 06/29/23 10/23/24 21:00 History 50 mg acetaminophen 325 mg capsule 650 mg PO Q6H PRN pain Unknown History (Tylenol) ondansetron HCl 4 mg tablet 4 mg PO Q8H PRN PRN nausea and 07/02/23 10/10/24 History vomiting dulaglutide 0.75 mg/0.5 mL 0.75 mg subcut QWEEK inject ion 09/06/24 10/19/24 09:00 History subcutaneous pen injector 0.75 mg (Trulicity) duloxetine 30 mg capsule,delayed 30 mg PO DAILY mood 0 09/06/24 10/23/24 21:00 History release 30 mg nifedipine 90 mg tablet,extended 90 mg PO DAILY BP 10/2410/23/24 21:00 History release 90 mg pregabalin 25 mg capsule 50 mg PO QHS neuropathy 0710/2410/23/24 21:00 History albuterol sulfate 90 mcg/actuation 2 puff inhalation Q 2H PRN 10/10/24 10/24/24 12:30 History aerosol inhaler shortness of breath or wheez ing 2 puff calcitriol 0.25 mcg capsule 1.5 mcg PO TUTHSA dialysis 10/10/24 10/08/24 History sucroferric oxyhydroxide 500 mg 500 mg PO TID phosphat e inhib 10/10/24 10/10/24 History chewable tablet (Velphoro) torsemide 100 mg tablet 100 mg PO TUTHSA edema 10/1010/22/24 21:00 History 100 mg fluticasone propionate 50 2 spray intranasal Q12H andie rgies 10/24/24 Unknown History mcg/actuation nasal spray,suspension Allergy/AdvReac Type Severity Reaction Status Date / Time balsam juan Allergy Unknown UNKNOWN Verified 10/24/24 13:48 mold Allergy Unknown unknown Verified 10/24/24 13:48 lisinopril Allergy unknown Verified 10/24/24 13:48 Penicillins Allergy Anaphylaxis Verified 10/24/24 13:48 tetracycline (Tetracycline) Allergy Anaphylaxis Verified 10/24/24 13:48 codeine AdvReac Abd Verified 10/24/24 13:48 cramps/diarrhea diphenhydramine HCl (From AdvReac Upset Verified 10/24/24 13:48 Benadryl) Stomach hydrocodone bitartrate (From AdvReac Abd Verified 10/24/24 13:48 Vicodin) cramps/diarrhea NSAIDS (Non-Steroidal AdvReac Unknown Verified 10/24/24 13:48 Anti-Inflamma Family History Mother Heart disease Hypertension Diabetes Kidney disease Father Diabetes Surgical History H/O cataract extraction H/O gastric bypass H/O vascular surgery H/O vitrectomy History of appendectomy History of cholecystectomy S/P appendectomy S/P cholecystectomy Social History household members: none Smoking Status: Former smoker how long ago did patient quit smoking: Quit age 24. alcohol intake: never substance use type: does not use ROS ROS Narrative General: Denies fever/chills HENT: Resolved headache, denies stuffy nose, denies sore throat EYES: Had blurry vision that is resolved resp: No productive cough, does have increased shortness of breath especially when lying down Cardiac: Denies any central chest pressure, has some squeezing feeling around her rib cage GI: Denies abdominal pain, denies changes in bowel, intermittently gets nauseouswhich is not new : Denies changes in urination, does still urinate Extremity: Denies any increased swelling MSK: Denies any new weakness Neuro: Denies any numbness/tingling Heme: Denies any bleeding or bruising Skin: Denies rashes Psychiatric: No complaints voiced Vital Signs Vital Signs Vital Signs: 10/24/24 13:39 10/24/24 13:40 10/24/24 13:44 Temperature 98.3 F 98.9 F Temperature Source Oral Oral Pulse Rate 97 96 Respiratory Rate 18 20 H Respiratory Effort Respiratory Depth Respiratory Pattern Blood Pressure 136/77 H 154/76 H Blood Pressure Mean 96 102 Pulse Ox 94 84 97 Oxygen Delivery Method Nasal Cannula Room Air Nasal Cannula Oxygen Flow Rate (L/min) 2 2 10/24/24 13:49 10/24/24 14:36 10/24/24 14:44 Temperature 98.8 F Temperature Source Oral Pulse Rate 94 Respiratory Rate 18 Respiratory Effort Short of Breath Respiratory Depth Normal Respiratory Pattern Normal Blood Pressure 167/75 H Blood Pressure Mean 105 Pulse Ox 94 98 Oxygen Delivery Method Nasal Cannula Nasal Cannula Nasal Cannula Oxygen Flow Rate (L/min) 2 2 2 10/24/24 15:00 10/24/24 15:54 10/24/24 16:00 Temperature 98.8 F 98.7 F Temperature Source Oral Oral Pulse Rate 98 92 Respiratory Rate 16 19 H Respiratory Effort Respiratory Depth Respiratory Pattern Blood Pressure 155/85 H 155/85 H Blood Pressure Mean 108 108 Pulse Ox 98 99 97 Oxygen Delivery Method Nasal Cannula Non-Rebreather @ 15L/min Oxygen Flow Rate (L/min) 2 10/24/24 16:00 10/24/24 16:15 10/24/24 16:30 Temperature Temperature Source Pulse Rate Respiratory Rate Respiratory Effort Respiratory Depth Respiratory Pattern Blood Pressure 152/80 H 155/85 H 165/94 H Blood Pressure Mean 100 104 116 Pulse Ox 97 96 Oxygen Delivery Method Oxygen Flow Rate (L/min) 10/24/24 16:45 10/24/24 17:00 10/24/24 17:00 Temperature Temperature Source Pulse Rate Respiratory Rate Respiratory Effort Respiratory Depth Respiratory Pattern Blood Pressure 151/72 H 164/71 H Blood Pressure Mean 96 98 Pulse Ox 100 97 Oxygen Delivery Method Nasal Cannula Oxygen Flow Rate (L/min) 2 10/24/24 17:15 10/24/24 17:30 10/24/24 17:45 Temperature Temperature Source Pulse Rate Respiratory Rate Respiratory Effort Respiratory Depth Respiratory Pattern Blood Pressure 168/87 H 162/77 H 158/79 H Blood Pressure Mean 110 100 100 Pulse Ox 91 94 95 Oxygen Delivery Method Oxygen Flow Rate (L/min) 10/24/24 18:00 10/24/24 18:00 10/24/24 18:12 Temperature 98.8 F 98.8 F Temperature Source Oral Pulse Rate 90 90 Respiratory Rate 16 16 Respiratory Effort Respiratory Depth Respiratory Pattern Blood Pressure 158/72 H 158/72 H 158/72 H Blood Pressure Mean 100 96 100 Pulse Ox 94 94 94 Oxygen Delivery Method Nasal Cannula Oxygen Flow Rate (L/min) 2 Weight Weight: 90.1 kg Body Mass Index (BMI) 30.2 Physical Exam Narrative General: Alert, oriented, no apparent distress HEENT: Atraumatic, normocephalic Eyes: Anicteric, normal conjunctiva, extraocular movements grossly intact Neck: Supple Respiratory: Diminished bilaterally, normal respiratory effort Cardiovascular: Regular rate and rhythm GI: Soft, nontender, nondistended Extremities: No edema Musculoskeletal: Moving all extremities Neuro: No overt focal neurological deficits Skin: No rashes appreciated Psych: Cooperative Results Lab / Micro Data 10/24/24 14:07 10/24/24 14:07 Labs: Laboratory Results - last 24 hr 10/24/24 14:07: WBC 6.3, RBC 2.93 L, Hgb 8.7 L, Hct 27.1 L, MCV 92.5, MCH 29.7, MCHC 32.1, RDW Std Deviation 47.4 H, RDW Coeff of Ben 14.1, Plt Count 135 L, MPV11.4, Immature Gran % (Auto) 0.600, Neut % (Auto) 78.8 H, Lymph % (Auto) 12.8 L,[place] % (Auto) 4.9, Eos % (Auto) 2.4, Baso % (Auto) 0.5, Absolute Neuts (auto) 5.0, Absolute Lymphs (auto) 0.81 L, Nucleated RBC % 0, Sodium 133, Potassium 3.7, Chloride 90 L, Carbon Dioxide 25.3, Anion Gap 18 H, BUN 29 H, Creatinine 5.97 H, Estim Creat Clear Calc 11.91 L, Est GFR (MDRD) Non-Af 8 L, BUN/Creatinine Ratio 4.9 L, Glucose 316 H, Calcium 8.8, [place]NP II > 37472 H Imaging Radiology Impression Chest X-Ray 10/24/24 16:00 IMPRESSION: Extensive pulmonary edema. Underlying focal consolidations not excluded. No pleural effusion or pneumothorax. Reading Location: [facility] Assessment & Plan Assessment/Plan (1) Hypoxia: PLAN: Plan # Shortness of breath and hypoxia secondary to presumed fluid overload -Monitor on telemetry -Patient resting comfortably on 2 L nasal cannula -X-ray read as extensive pulmonary edema -Continue IV Lasix -Consult nephrology -Does not appear to be acutely distressed at this time and is maintaining sats do not think patient needs emergent dialysis -No cough that would make me suspicious for pneumonia, afebrile with normal white count or viral etiology at this time, do not think patient needs any empiric antibiotics on current exam/eval -Shortness of breath especially when patient is lying flat, for now we will keephead of bed elevated -Last echo with EF of 65% and stage I diastolic dysfunction back in March patient end-stage renal disease on hemodialysis, combination in addition to untreated sleep apnea may be cause for patient's decompensation -Did order troponins given the lower chest tightness, with her fluid overload and renal failure expect them to be elevated will assess for proportion of elevation as a severe elevation in may suggest more cardiac nature -If troponins more elevated than previously can consider echocardiogram and further workup -EKG nonspecific, normal sinus rhythm, no STEMI -Daily weights, I's and O's #ESRD on HD -Consult nephrology -Renal diet -Daily weights, I's and O's #Type 2 diabetes mellitus -Glucose checks and sliding scale insulin #GERD -Continue PPI #Hx COPD -Albuterol as needed -Incentive spirometer #Hx CASSIE - Noncompliant with CPAP #Hypertension - Continue medications #Depression/anxiety -Continue home medications #DVT ppx: heparin subq Mone Riggs MD Charges/Coding Visit Charges Inpatient E&M: 18141 Init Hosp L2 10/24/242031 <Electronically signed by Mone Riggs MD> Cosigner Signature (if applicable): CC: Dr. Mone Riggs MD; Dr. Ignacio Cheatham MD~ Signed ADDENDUM by Dr. Mone Riggs MD on 10/24/24 at 2143 Addendum Troponin elevated, may be within the realms of elevation from her fluid overloadand kidney failure will trend to make sure does not have significant increase despite treatment, will add echo for the a.m. as well 10/24/242143<Electronically signed by Mone Riggs MD> Cosigner Signature (if applicable): cc: Dr. Mone Riggs MD; Dr. Ignacio Cheatham MD ~* Signed [facility] Work Phone: [phone] 400-649108-25-2025 History and physical note [facility] Medical Records Department [address] [place] [address] H&P Exam - Hospitalist 10/24/24 1854 MR#: [id number] Acct: [id number] Name: Margareth GONZALEZ Rep #:[id number] : 1965 59 From: Mone Riggs MD PCP: Dr. Ignacio Cheatham MD Status:ADM I N Location: [facility] [id number]- [id number] HPI - General General Date of Admission: 10/24/24 Date of Service: 10/24/24 Chief Complaint: SOB HPI Narrative Margareth GONZALEZ, is a 59-year-old female history of GERD, end-stage renal disease on hemodialysis, hypertension, COPD, depression presented to [facility] ED 10/24/2024 with shortness of breath lung pain. In the ED patient afebrile, heart rate 97, blood pressure 136/77 respiratory rate 18 with pulse ox84% on room air, patient placed on 2 L nasal cannula. CBC with BUN of 29 and creatinine 5.97, glucose 316. CBC with normal white blood cell count and hemoglobin of 8.7. proBNP greater than 70,000 however this is the same as previous but chest x-ray demonstrated extensive pulmonary edema. Patient does still make urine so she was given IV Lasix and hospitalist consulted for admission.Patient evaluated at bedside, she reports that this morning she wokeup short of breath, her lungs hurt and she felt nauseous and exhausted, she wentback to bed because that usually helps her feel better but when she woke up she was even more short of breath and had tightening feeling, reports that she does get problems with her lungs hurting and has been happening more recently over the past couple of months and does note that she gets worsened feelings in her chest when she is fluid overloaded, also notes earlier today she had a headache and blurry vision and found her pulse ox to be 80% on room air. Does feel little bit better now that she is on oxygen in the ED and got Lasix and pain medication. Denying any upper chest pain, reports she does get chronic nausea. Denies any cough or sputum production. [facility] Medical History (Updated 10/24/24 @ 20:[address] Moen Riggs MD) Anemia Anxiety Anxiety and depression Asthma Benign essential hypertension Bipolar disorder Chronic anemia COPD (chronic obstructive pulmonary disease) COPD with asthma CPAP (continuous positive airway pressure) dependence Depression Diabetes Diabetes mellitus, type 2 Dialysis patient [...] tibia, initial encounter for fracture Sleep apnea Medical History no medical history Home Medications ?Medication ?Instructions ?Recorded ?Last Taken ?Type cholecalciferol (vitamin D3) 25 5,000 unit PO DAILY CORNELL PPLEMENT 10/03/13 10/23/24 21:00 History mcg (1,000 unit) capsule (Vitamin 5,00 0 unit D3) omeprazole 20 mg capsule,delayed 20 mg PO DAILY GERD 0 08/23/14 10/23/24 21:00 History release 20 mg melatonin 5 mg capsule 10 mg PO QHS sleep 05/27/16 10/23/24 21:00 History 10 mg atorvastatin 40 mg tablet 40 mg PO QHS CHOLESTEROL 02/2110/23/24 21:00 History 40 mg sevelamer carbonate 800 mg tablet 1,600 mg PO TID food 02/04/23 10/10/24 History hydroxyzine HCl 50 mg tablet 50 mg PO Q6H PRN itching 06/29/23 10/23/24 21:00 History 50 mg acetaminophen 325 mg capsule 650 mg PO Q6H PRN pain Unknown History (Tylenol) ondansetron HCl 4 mg tablet 4 mg PO Q8H PRN PRN nausea and 07/02/23 10/10/24 History vomiting dulaglutide 0.75 mg/0.5 mL 0.75 mg subcut QWEEK inject ion 09/06/24 10/19/24 09:00 History subcutaneous pen injector 0.75 mg (Trulicity) duloxetine 30 mg capsule,delayed 30 mg PO DAILY mood 0 09/06/24 10/23/24 21:00 History release 30 mg nifedipine 90 mg tablet,extended 90 mg PO DAILY BP 10/2410/23/24 21:00 History release 90 mg pregabalin 25 mg capsule 50 mg PO QHS neuropathy 0710/2410/23/24 21:00 History albuterol sulfate 90 mcg/actuation 2 puff inhalation Q 2H PRN 10/10/24 10/24/24 12:30 History aerosol inhaler shortness of breath or wheez ing 2 puff calcitriol 0.25 mcg capsule 1.5 mcg PO TUTHSA dialysis 10/10/24 10/08/24 History sucroferric oxyhydroxide 500 mg 500 mg PO TID phosphat e inhib 10/10/24 10/10/24 History chewable tablet (Velphoro) torsemide 100 mg tablet 100 mg PO TUTHSA edema 10/1010/22/24 21:00 History 100 mg fluticasone propionate 50 2 spray intranasal Q12H andie rgies 10/24/24 Unknown History mcg/actuation nasal spray,suspension Allergy/AdvReac Type Severity Reaction Status Date / Time lety juan Allergy Unknown UNKNOWN Verified 10/24/24 13:48 mold Allergy Unknown unknown Verified 10/24/24 13:48 lisinopril Allergy unknown Verified 10/24/24 13:48 Penicillins Allergy Anaphylaxis Verified 10/24/24 13:48 tetracycline (Tetracycline) Allergy Anaphylaxis Verified 10/24/24 13:48 codeine AdvReac Abd Verified 10/24/24 13:48 cramps/diarrhea diphenhydramine HCl (From AdvReac Upset Verified 10/24/24 13:48 Benadryl) Stomach hydrocodone bitartrate (From AdvReac Abd Verified 10/24/24 13:48 Vicodin) cramps/diarrhea NSAIDS (Non-Steroidal AdvReac Unknown Verified 10/24/24 13:48 Anti-Inflamma Family History Mother Heart disease Hypertension Diabetes Kidney disease Father Diabetes Surgical History H/O cataract extraction H/O gastric bypass H/O vascular surgery H/O vitrectomy History of appendectomy History of cholecystectomy S/P appendectomy S/P cholecystectomy Social History household members: none Smoking Status: Former smoker how long ago did patient quit smoking: Quit age 24. alcohol intake: never substance use type: does not use ROS ROS Narrative General: Denies fever/chills HENT: Resolved headache, denies stuffy nose, denies sore throat EYES: Had blurry vision that is resolved resp: No productive cough, does have increased shortness of breath especially when lying down Cardiac: Denies any central chest pressure, has some squeezing feeling around her rib cage GI: Denies abdominal pain, denies changes in bowel, intermittently gets nauseouswhich is not new : Denies changes in urination, does still urinate Extremity: Denies any increased swelling MSK: Denies any new weakness Neuro: Denies any numbness/tingling Heme: Denies any bleeding or bruising Skin: Denies rashes Psychiatric: No complaints voiced Vital Signs Vital Signs Vital Signs: 10/24/24 13:39 10/24/24 13:40 10/24/24 13:44 Temperature 98.3 F 98.9 F Temperature Source Oral Oral Pulse Rate 97 96 Respiratory Rate 18 20 H Respiratory Effort Respiratory Depth Respiratory Pattern Blood Pressure 136/77 H 154/76 H Blood Pressure Mean 96 102 Pulse Ox 94 84 97 Oxygen Delivery Method Nasal Cannula Room Air Nasal Cannula Oxygen Flow Rate (L/min) 2 2 10/24/24 13:49 10/24/24 14:36 10/24/24 14:44 Temperature 98.8 F Temperature Source Oral Pulse Rate 94 Respiratory Rate 18 Respiratory Effort Short of Breath Respiratory Depth Normal Respiratory Pattern Normal Blood Pressure 167/75 H Blood Pressure Mean 105 Pulse Ox 94 98 Oxygen Delivery Method Nasal Cannula Nasal Cannula Nasal Cannula Oxygen Flow Rate (L/min) 2 2 2 10/24/24 15:00 10/24/24 15:54 10/24/24 16:00 Temperature 98.8 F 98.7 F Temperature Source Oral Oral Pulse Rate 98 92 Respiratory Rate 16 19 H Respiratory Effort Respiratory Depth Respiratory Pattern Blood Pressure 155/85 H 155/85 H Blood Pressure Mean 108 108 Pulse Ox 98 99 97 Oxygen Delivery Method Nasal Cannula Non-Rebreather @ 15L/min Oxygen Flow Rate (L/min) 2 10/24/24 16:00 10/24/24 16:15 10/24/24 16:30 Temperature Temperature Source Pulse Rate Respiratory Rate Respiratory Effort Respiratory Depth Respiratory Pattern Blood Pressure 152/80 H 155/85 H 165/94 H Blood Pressure Mean 100 104 116 Pulse Ox 97 96 Oxygen Delivery Method Oxygen Flow Rate (L/min) 10/24/24 16:45 10/24/24 17:00 10/24/24 17:00 Temperature Temperature Source Pulse Rate Respiratory Rate Respiratory Effort Respiratory Depth Respiratory Pattern Blood Pressure 151/72 H 164/71 H Blood Pressure Mean 96 98 Pulse Ox 100 97 Oxygen Delivery Method Nasal Cannula Oxygen Flow Rate (L/min) 2 10/24/24 17:15 10/24/24 17:30 10/24/24 17:45 Temperature Temperature Source Pulse Rate Respiratory Rate Respiratory Effort Respiratory Depth Respiratory Pattern Blood Pressure 168/87 H 162/77 H 158/79 H Blood Pressure Mean 110 100 100 Pulse Ox 91 94 95 Oxygen Delivery Method Oxygen Flow Rate (L/min) 10/24/24 18:00 10/24/24 18:00 10/24/24 18:12 Temperature 98.8 F 98.8 F Temperature Source Oral Pulse Rate 90 90 Respiratory Rate 16 16 Respiratory Effort Respiratory Depth Respiratory Pattern Blood Pressure 158/72 H 158/72 H 158/72 H Blood Pressure Mean 100 96 100 Pulse Ox 94 94 94 Oxygen Delivery Method Nasal Cannula Oxygen Flow Rate (L/min) 2 Weight Weight: 90.1 kg Body Mass Index (BMI) 30.2 Physical Exam Narrative General: Alert, oriented, no apparent distress HEENT: Atraumatic, normocephalic Eyes: Anicteric, normal conjunctiva, extraocular movements grossly intact Neck: Supple Respiratory: Diminished bilaterally, normal respiratory effort Cardiovascular: Regular rate and rhythm GI: Soft, nontender, nondistended Extremities: No edema Musculoskeletal: Moving all extremities Neuro: No overt focal neurological deficits Skin: No rashes appreciated Psych: Cooperative Results Lab / Micro Data 10/24/24 14:07 10/24/24 14:07 Labs: Laboratory Results - last 24 hr 10/24/24 14:07: WBC 6.3, RBC 2.93 L, Hgb 8.7 L, Hct 27.1 L, MCV 92.5, MCH 29.7, MCHC 32.1, RDW Std Deviation 47.4 H, RDW Coeff of Ben 14.1, Plt Count 135 L, MPV11.4, Immature Gran % (Auto) 0.600, Neut % (Auto) 78.8 H, Lymph % (Auto) 12.8 L,[place] % (Auto) 4.9, Eos % (Auto) 2.4, Baso % (Auto) 0.5, Absolute Neuts (auto) 5.0, Absolute Lymphs (auto) 0.81 L, Nucleated RBC % 0, Sodium 133, Potassium 3.7,Chloride 90 L, Carbon Dioxide 25.3, Anion Gap 18 H, BUN 29 H, Creatinine 5.97 H, Estim Creat Clear Calc 11.91 L, Est GFR (MDRD) Non-Af 8 L, BUN/Creatinine Ratio 4.9 L, Glucose 316 H, Calcium 8.8, [place] B[place] II > 97957 H Imaging Radiology Impression Chest X-Ray 10/24/24 16:00 IMPRESSION: Extensive pulmonary edema. Underlying focal consolidations not excluded. No pleural effusion or pneumothorax. Reading Location: [facility] Assessment & Plan Assessment/Plan (1) Hypoxia: PLAN: Plan # Shortness of breath and hypoxia secondary to presumed fluid overload -Monitor on telemetry -Patient resting comfortably on 2 L nasal cannula -X-ray read as extensive pulmonary edema -Continue IV Lasix -Consult nephrology -Does not appear to be acutely distressed at this time and is maintaining sats do not think patientneeds emergent dialysis -No cough that would make me suspicious for pneumonia, afebrile with normal white count or viral etiology at this time, do not think patient needs any empiric antibiotics on current exam/eval -Shortness of breath especially when patient is lying flat, for now we will keephead of bed elevated -Last echo with EF of 65% and stage I diastolic dysfunction back in March patient end-stage renal disease on hemodialysis, combination in addition to untreated sleep apnea may be cause for patient's decompensation -Did order troponins given the lower chest tightness, with her fluid overload and renal failure expect them to be elevated will assess for proportion of elevation as a severe elevation in may suggestmore cardiac nature -If troponins more elevated than previously can consider echocardiogram and further workup -EKG nonspecific, normal sinus rhythm, no STEMI -Daily weights, I's and O's #ESRD on HD -Consult nephrology -Renal diet -Daily weights, I's and O's #Type 2 diabetes mellitus -Glucose checks and sliding scale insulin #GERD -Continue PPI #Hx COPD -Albuterol as needed -Incentive spirometer #Hx CASSIE - Noncompliant with CPAP #Hypertension - Continue medications #Depression/anxiety -Continue home medications #DVT ppx: heparin subq Mone Riggs MD Charges/Coding Visit Charges Inpatient E&M: 57205 Init Hosp L2 10/24/242031 Cosigner Signature (if applicable): CC: Dr. Mone Riggs MD; Dr. Ignacio Cheatham MD~ Signed ADDENDUM by Dr. Mone Riggs MD on 10/24/24 at 2143 Addendum Troponin elevated, may be within the realms of elevation from her fluid overloadand kidney failure will trend to make sure does not have significant increase despite treatment, will add echo for the a.m. as well 10/24/242143 Cosigner Signature (if applicable): cc: Dr. Mone Riggs MD; Dr. Ignacio Cheatham MD ~* Signed [facility]08-25-2025 Discharge summary Author Sylvester Winston [facility] Note Date/Time October 24, 2024 5: 57pm [facility] Medical Records Department [address] [place] [address] Emergency Department Summary 10/24/24 MR#: [id number] Acct: [id number] Name: Margareth GONZALEZ Rep #:[id number] 1 : 1965 59 From: Sylvester Snyder PCP: Dr. Ignacio Cheatham MD Status:ADM I N Location: [place] [address] HPI History of Present Illness Chief Complaint: Shortness of Breath Informant: patient Onset/Context/Timing Onset: Today Context: gradual Timing: Continuous Quality: Positive for Orthopnea Worsened by: Lying flat Relieved by: Nothing Associated Symptoms sweats; Negative for cough, rhinorrhea, post nasal drip, ear pain, fever, sore throat, chills, clear sputum, white sputum, yellow sputum or green sputum Chest Pain: Positive for Aching, Pleuritic and - (Bilateral chest, right worse than left) Narrative Narrative: Patient presents with shortness of breath that began today. Patient states it came on gradually. Patient states she woke up and felt unwell. Patient states she laid back down and went back to sleep. Patient states she woke up after that she was having some shortness of breath. Patient states her breathing is worse when she lays flat. Patient states nothing makes it better. Patient admits to some sweats. Patient admits to some pain in her chest. Patient states it is worse on the right than on the left. Patient describes as aching. Patient states it is worse with deep breathing. Patient admits to some nausea but denies any vomiting. Patient has dialysis on Thursday and Thursday. Patient states she had a normal dialysis treatment on Thursday, 2 days ago. Patient states she got to her goal weight after dialysis. [facility] Medical History Hyperkalemia Fracture of fibula, right, closed Anemia Osteoarthritis of right knee Pathological fracture, right [...] disorder Benign essential hypertension History of asthma Medical History no medical history Home Medications ?Medication ?Instructions ?Recorded ?Last Taken ?Type cholecalciferol (vitamin D3) 25 5,000 unit PO DAILY CORNELL PPLEMENT 10/03/13 10/09/24 History mcg (1,000 unit) capsule (Vitamin D3) omeprazole 20 mg capsule,delayed 20 mg PO DAILY 10/09/24 History release melatonin 5 mg capsule 10 mg PO QHS sleep 05/27/16 10/09/24 History atorvastatin 40 mg tablet 40 mg PO QHS CHOLESTEROL 02/2110/09/24 History sevelamer carbonate 800 mg tablet 1,600 mg PO TID 08/2210/10/24 History hydroxyzine HCl 50 mg tablet 50 mg PO Q6H PRN itching 06/29/23 10/09/24 History acetaminophen 325 mg capsule 650 mg PO Q6H PRN pain Unknown History (Tylenol) ondansetron HCl 4 mg tablet 4 mg PO Q8H PRN PRN nausea and 07/02/23 10/10/24 History vomiting clopidogrel 75 mg tablet 75 mg PO DAILY 09/06/2409/30 History dulaglutide 0.75 mg/0.5 mL 0.75 mg subcut QWEEK 10/09/24 History subcutaneous pen injector (Trulicity) duloxetine 30 mg capsule,delayed 30 mg PO DAILY 10/09/24 History release nifedipine 90 mg tablet,extended 90 mg PO DAILY BP 10/2410/09/24 History release pregabalin 25 mg capsule 25 mg PO QHS 09/06/24 History albuterol sulfate 90 mcg/actuation 2 puff inhalation Q 4H PRN PRN 10/10/24 10/09/24 History aerosol inhaler shortness of breath or wheez ing calcitriol 0.25 mcg capsule 1.5 mcg PO TUTHSA 10/10/24 10/08/24 History sucroferric oxyhydroxide 500 mg 500 mg PO TID 10/10/24 10/10/24 History chewable tablet (Velphoro) torsemide 100 mg tablet 100 mg PO DAILY 10/10/2412/24 History prednisone 20 mg tablet 40 mg (2 x 20 mg) PO BREAKFA ST 5 10/13/24 Unknown Rx days #10 tabs Allergy/AdvReac Type Severity Reaction Status Date / Time lety juan Allergy Unknown UNKNOWN Verified 10/24/24 13:48 mold Allergy Unknown unknown Verified 10/24/24 13:48 lisinopril Allergy unknown Verified 10/24/24 13:48 Penicillins Allergy Anaphylaxis Verified 10/24/24 13:48 tetracycline (Tetracycline) Allergy Anaphylaxis Verified 10/24/24 13:48 codeine AdvReac Abd Verified 10/24/24 13:48 cramps/diarrhea diphenhydramine HCl (From AdvReac Upset Verified 10/24/24 13:48 Benadryl) Stomach hydrocodone bitartrate (From AdvReac Abd Verified 10/24/24 13:48 Vicodin) cramps/diarrhea NSAIDS (Non-Steroidal AdvReac Unknown Verified 10/24/24 13:48 Anti-Inflamma Family History Mother Heart disease Hypertension [...] use ROS ROS ED Constitutional Constitutional ED: Reports sweats; Denies chills or fever(s) Eyes Eyes: Reports blurry vision; Denies diplopia ENT ENT ED: Denies rhinorrhea or sore throat Cardiovascular Cardiovascular: Reports chest pain; Denies palpitations Respiratory/Chest Respiratory/Chest: Reports dyspnea; Denies cough Gastrointestinal Gastrointestinal: Denies nausea or vomiting Genitourinary Genitourinary ED: Denies dysuria or hematuria Musculoskeletal Musculoskeletal: Reports back pain and neck pain Integumentary Denies abscess or rash Neurologic Neurologic: Denies headache(s) or weakness Allergic/Immunologic Allergic/Immunologic ED: Denies mouth swelling or urticaria EXAM Physical Exam Const Vital Signs: 10/24/24 13:39 10/24/24 13:40 10/24/24 13:44 Temperature 98.3 F 98.9 F Temperature Source Oral Oral Pulse Rate 97 96 Respiratory Rate 18 20 H Respiratory Effort Respiratory Depth Respiratory Pattern Blood Pressure 136/77 H 154/76 H Blood Pressure Mean 96 102 Pulse Ox 94 84 97 Oxygen Delivery Method Nasal Cannula Room Air Nasal Cannula Oxygen Flow Rate (L/min) 2 2 10/24/24 13:49 10/24/24 14:36 10/24/24 14:44 Temperature 98.8 F Temperature Source Oral Pulse Rate 94 Respiratory Rate 18 Respiratory Effort Short of Breath Respiratory Depth Normal Respiratory Pattern Normal Blood Pressure 167/75 H Blood Pressure Mean 105 Pulse Ox 94 98 Oxygen Delivery Method Nasal Cannula Nasal Cannula Nasal Cannula Oxygen Flow Rate (L/min) 2 2 2 10/24/24 15:00 10/24/24 15:54 10/24/24 16:00 Temperature 98.8 F 98.7 F Temperature Source Oral Oral Pulse Rate 98 92 Respiratory Rate 16 19 H Respiratory Effort Respiratory Depth Respiratory Pattern Blood Pressure 155/85 H 155/85 H Blood Pressure Mean 108 108 Pulse Ox 98 99 97 Oxygen Delivery Method Nasal Cannula Non-Rebreather @ 15L/min Oxygen Flow Rate (L/min) 2 10/24/24 16:00 10/24/24 16:15 10/24/24 16:30 Temperature Temperature Source Pulse Rate Respiratory Rate Respiratory Effort Respiratory Depth Respiratory Pattern Blood Pressure 152/80 H 155/85 H 165/94 H Blood Pressure Mean 100 104 116 Pulse Ox 97 96 Oxygen Delivery Method Oxygen Flow Rate (L/min) 10/24/24 16:45 10/24/24 17:00 10/24/24 17:00 Temperature Temperature Source Pulse Rate Respiratory Rate Respiratory Effort Respiratory Depth Respiratory Pattern Blood Pressure 151/72 H 164/71 H Blood Pressure Mean 96 98 Pulse Ox 100 97 Oxygen Delivery Method Nasal Cannula Oxygen Flow Rate (L/min) 2 Positive well nourished and well developed Constitutional Narrative: BMI is 30.2 General Appearance ED: well developed and NAD HEENT Reports moist mucous membranes Neck supple, no meningeal signs and no JVD Resp normal respiratory effort Auscultation: rales bilateral 1/2 way up Cardio regular rate and regular rhythm GI non-tender and non-distended Palpation: soft Extremity normal to inspection Neuro oriented x3, CN's II-XII intact bilaterally and no sensory deficits noted Jacklyn Coma Scale: document GCS findings Spontaneous Obeys Commands Oriented 15 Sensorium / Orientation: alert Speech: speech normal Motor Exam: strength 5/5 throughout Psych mental status grossly normal MDM MDM MDM Narrative Medical decision making narrative: Differential diagnosis includes congestive heart failure, cardiac dysrhythmia, cardiac ischemia, pneumonia, bronchitis, and electrolyte abnormality. EKG will be obtained to assess for cardiac dysrhythmia and cardiac ischemia. Chest x-raywill be obtained to assess for pneumonia, bronchitis, congestive heart failure. CBC will be obtained to assess for leukocytosis and anemia. Basic metabolic profile will be obtained to assess for electrolyte abnormality and renal function. BNP will be obtained to assess for congestive heart failure. History & Record Review Additional record(s) reviewed:: Prior labs Lab Data Attestation: I reviewed the patient's lab results. Lab results narrative: CBC was reviewed. There is a mild anemia with a hemoglobin of 8.7 and hematocrit of 27.1. Platelets are slightly low at 135. These are consistent with previous results. Basic metabolic profile was reviewed. Chloride was slightly low at 90. BUN was 29 and creatinine was 5.97. These are improved from previous results. Glucose was mildly elevated at 316. BNP was reviewed and was greater than 70,000. Labs: Laboratory Results - last 24 hr 10/24/24 14:07 WBC 6.3 RBC 2.93 L Hgb 8.7 L Hct 27.1 L MCV 92.5 MCH 29.7 MCHC 32.1 RDW Std Deviation 47.4 H RDW Coeff of Ben 14.1 Plt Count 135 L MPV 11.4 Immature Gran % (Auto) 0.600 Neut % (Auto) 78.8 H Lymph % (Auto) 12.8 L [place] % (Auto) 4.9 Eos % (Auto) 2.4 Baso % (Auto) 0.5 Absolute Neuts (auto) 5.0 Absolute Lymphs (auto) 0.81 L Nucleated RBC % 0 Sodium 133 Potassium 3.7 Chloride 90 L Carbon Dioxide 25.3 Anion Gap 18 H BUN 29 H Creatinine 5.97 H Estim Creat Clear Calc 11.91 L Est GFR (MDRD) Non-Af 8 L BUN/Creatinine Ratio 4.9 L Glucose 316 H Calcium 8.8 NT [place] BNP II > [address]4864 H Radiography Chest X-Ray - ED: 2 View, Read by ED Physician, Read by Radiologist and CHF (Pulmonary edema) Diagnostic Testing: Clinical Impression(s) from Imaging Studies Chest X-Ray 10/24/24 16:00 IMPRESSION: Extensive pulmonary edema. Underlying focal consolidations not excluded. No pleural effusion or pneumothorax. Reading Location: [facility] PA and lateral chest x-ray was obtained. There are 2 views. On my independent interpretation, lung soto show pulmonary edema. There is no pleural effusion or pneumothorax noted. There is normal cardiac silhouette. Bony thorax is normal. Radiologist also interpreted the x-ray and agrees. EKG Initial EKG: Attestation: I personally reviewed and interpreted this EKG as follows: Interpretation: Sinus Rhythm (95) and Non-Specific ST Changes Comments: EKG was obtained. On my independent interpretation, it showed anormal sinus rhythm with a rate of 95. [place] interval, QRS interval, and QTc intervals were all normal. [place] was normal. There are nonspecific ST-T wave changes. Prior EKG tracings: available for review Prior: Unchanged (10/10/2024) Management Discussion w/another healthcare provider: Hospitalist Treatment and Re-Evaluation :: Patient was given a dose of Lasix here. Patient did not have any urine output with this as of yet. Patient is not on home oxygen. Currently, patient is on 2L nasal cannula. Patient was advised of her findings. Patient is scheduled fordialysis tomorrow. However, she is requiring oxygen which she does not have at home. I will discuss case with the hospitalist for admission. She will admit the patient to PCU. Patient understood and was agreeable with the plan. All questions were answered. Discharge Plan Triage Chief Complaint: Shortness of Breath ED Provider: Sylvester Winston Dx/Rx/DC Orders Clinical Impression: Pulmonary edema, ESRD (end stage renal disease) on dialysis, Hypertension Prescriptions: No Action cholecalciferol (vitamin D3) [Vitamin D3] 1,000 UNIT capsule 5,000 unit PO DAILY omeprazole 20 MG capsule 20 mg PO DAILY melatonin 5 MG capsule 10 mg PO QHS atorvastatin 40 mg tablet 40 mg PO QHS sevelamer carbonate 800 mg tablet 1,600 mg PO TID acetaminophen [Tylenol] 325 mg capsule 650 mg PO Q6H PRN (Reason: pain ) ondansetron HCl 4 mg tablet 4 mg PO Q8H PRN PRN (Reason: nausea and vomiting) hydroxyzine HCl 50 mg tablet 50 mg PO Q6H PRN (Reason: itching) nifedipine 90 mg tablet extended release 90 mg PO DAILY Patient Comments: [NO ORIGINAL SIG] clopidogrel 75 mg tablet 75 mg PO DAILY duloxetine 30 mg capsule,delayed release(DR/EC) 30 mg PO DAILY pregabalin 25 mg capsule 25 mg PO QHS Trulicity 0.75 mg/0.5 mL pen injector 0.75 mg subcut QWEEK torsemide 100 mg tablet 100 mg PO DAILY Velphoro 500 mg tablet,chewable 500 mg PO TID calcitriol 0.25 mcg capsule 1.5 mcg PO TUTHSA Rx Instructions: 1.5 mcg orally 3XW; albuterol sulfate 90 mcg/actuation HFA aerosol inhaler 2 puff INHALATION Q4H PRN PRN (Reason: shortness of breath or wheezing) prednisone 20 mg Tablet 40 mg PO BREAKFAST 5 Days Qty: 10 0RF Primary Care Provider: Ignacio Cheatham Referrals: Ignacio Cheatham MD [Primary Care Provider] - Print Language: Bolivian Disposition Disposition: Acute Care Hospital [facility] What to do if you have Problems For any increased pain, shortness of breath, bleeding, nausea or vomiting, chestpain, or any unexpected problems, contact your Primary Care Provider. Call [facility] ([phone]) or report to the closest Emergency Room. Call 911 if necessary. 10/24/24 175 <Electronically signed by Sylvester Winston DO> Cosigner Signature (if applicable): CC: Dr. Ignacio Cheatham MD ~ Signed [facility] Work Phone: [phone] Discharge summary [facility] Medical Records Department [address] [place] [address] Emergency Department Summary 10/24/24 MR#: [id number] Acct: [id number] Name: Margareth GONZALEZ Rep #:[id number] 1 : 1965 59 From: Sylvester Snyder PCP: Dr. Ignacio Cheatham MD Status:ADM I N Location: [place] [address] HPI History of Present Illness Chief Complaint: Shortness of Breath Informant: patient Onset/Context/Timing Onset: Today Context: gradual Timing: Continuous Quality: Positive for Orthopnea Worsened by: Lying flat Relieved by: Nothing Associated Symptoms sweats; Negative for cough, rhinorrhea, post nasal drip, ear pain, fever, sore throat, chills, clear sputum, white sputum, yellow sputum or green sputum Chest Pain: Positive for Aching, Pleuritic and - (Bilateral chest, right worse than left) Narrative Narrative: Patient presents with shortness of breath that began today. Patient states it came on gradually. Patient states she woke up and felt unwell. Patient states she laid back down and went back to sleep. Patient states she woke up after that she was having some shortness of breath. Patient states her breathing is worse when she lays flat. Patient states nothing makes it better. Patient admits to some sweats. Patient admits to some pain in her chest. Patient states it is worse on the right than on the left. Patient describes as aching. Patient states it is worse with deep breathing. Patient admits to some nausea but denies any vomiting. Patient has dialysis on Thursday and Thursday. Patient states she had a normal dialysis treatment on Thursday, 2 days ago. Patient states she got to hergoal weight after dialysis. [facility] Medical History Hyperkalemia Fracture of fibula, right, closed Anemia Osteoarthritis of right knee Pathological fracture, right [...] disorder Benign essential hypertension History of asthma Medical History no medical history Home Medications ?Medication ?Instructions ?Recorded ?Last Taken ?Type cholecalciferol (vitamin D3) 25 5,000 unit PO DAILY CORNELL PPLEMENT 10/03/13 10/09/24 History mcg (1,000 unit) capsule (Vitamin D3) omeprazole 20 mg capsule,delayed 20 mg PO DAILY 10/09/24 History release melatonin 5 mg capsule 10 mg PO QHS sleep 05/27/16 10/09/24 History atorvastatin 40 mg tablet 40 mg PO QHS CHOLESTEROL 02/2110/09/24 History sevelamer carbonate 800 mg tablet 1,600 mg PO TID 08/2210/10/24 History hydroxyzine HCl 50 mg tablet 50 mg PO Q6H PRN itching 06/29/23 10/09/24 History acetaminophen 325 mg capsule 650 mg PO Q6H PRN pain Unknown History (Tylenol) ondansetron HCl 4 mg tablet 4 mg PO Q8H PRN PRN nausea and 07/02/23 10/10/24 History vomiting clopidogrel 75 mg tablet 75 mg PO DAILY 09/06/24/ History dulaglutide 0.75 mg/0.5 mL 0.75 mg subcut QWEEK 10/09/24 History subcutaneous pen injector (Trulicity) duloxetine 30 mg capsule,delayed 30 mg PO DAILY 10/09/24 History release nifedipine 90 mg tablet,extended 90 mg PO DAILY BP 10/2410/09/24 History release pregabalin 25 mg capsule 25 mg PO QHS 09/06/24 History albuterol sulfate 90 mcg/actuation 2 puff inhalation Q 4H PRN PRN 10/10/24 10/09/24 History aerosol inhaler shortness of breath or wheez ing calcitriol 0.25 mcg capsule 1.5 mcg PO TUTHSA 10/10/24 10/08/24 History sucroferric oxyhydroxide 500 mg 500 mg PO TID 10/10/24 10/10/24 History chewable tablet (Velphoro) torsemide 100 mg tablet 100 mg PO DAILY 10/10/2412/24 History prednisone 20 mg tablet 40 mg (2 x 20 mg) PO BREAKFA ST 5 10/13/24 Unknown Rx days #10 tabs Allergy/AdvReac Type Severity Reaction Status Date / Time lety juan Allergy Unknown UNKNOWN Verified 10/24/24 13:48 mold Allergy Unknown unknown Verified 10/24/24 13:48 lisinopril Allergy unknown Verified 10/24/24 13:48 Penicillins Allergy Anaphylaxis Verified 10/24/24 13:48 tetracycline (Tetracycline) Allergy Anaphylaxis Verified 10/24/24 13:48 codeine AdvReac Abd Verified 10/24/24 13:48 cramps/diarrhea diphenhydramine HCl (From AdvReac Upset Verified 10/24/24 13:48 Benadryl) Stomach hydrocodone bitartrate (From AdvReac Abd Verified 10/24/24 13:48 Vicodin) cramps/diarrhea NSAIDS (Non-Steroidal AdvReac Unknown Verified 10/24/24 13:48 Anti-Inflamma Family History Mother Heart disease Hypertension [...] use ROS ROS ED Constitutional Constitutional ED: Reports sweats; Denies chills or fever(s) Eyes Eyes: Reports blurry vision; Denies diplopia ENT ENT ED: Denies rhinorrhea or sore throat Cardiovascular Cardiovascular: Reports chest pain; Denies palpitations Respiratory/Chest Respiratory/Chest: Reports dyspnea; Denies cough Gastrointestinal Gastrointestinal: Denies nausea or vomiting Genitourinary Genitourinary ED: Denies dysuria or hematuria Musculoskeletal Musculoskeletal: Reports back pain and neck pain Integumentary Denies abscess or rash Neurologic Neurologic: Denies headache(s) or weakness Allergic/Immunologic Allergic/Immunologic ED: Denies mouth swelling or urticaria EXAM Physical Exam Const Vital Signs: 10/24/24 13:39 10/24/24 13:40 10/24/24 13:44 Temperature 98.3 F 98.9 F Temperature Source Oral Oral Pulse Rate 97 96 Respiratory Rate 18 20 H Respiratory Effort Respiratory Depth Respiratory Pattern Blood Pressure 136/77 H 154/76 H Blood Pressure Mean 96 102 Pulse Ox 94 84 97 Oxygen Delivery Method Nasal Cannula Room Air Nasal Cannula Oxygen Flow Rate (L/min) 2 2 10/24/24 13:49 10/24/24 14:36 10/24/24 14:44 Temperature 98.8 F Temperature Source Oral Pulse Rate 94 Respiratory Rate 18 Respiratory Effort Short of Breath Respiratory Depth Normal Respiratory Pattern Normal Blood Pressure 167/75 H Blood Pressure Mean 105 Pulse Ox 94 98 Oxygen Delivery Method Nasal Cannula Nasal Cannula Nasal Cannula Oxygen Flow Rate (L/min) 2 2 2 10/24/24 15:00 10/24/24 15:54 10/24/24 16:00 Temperature 98.8 F 98.7 F Temperature Source Oral Oral Pulse Rate 98 92 Respiratory Rate 16 19 H Respiratory Effort Respiratory Depth Respiratory Pattern Blood Pressure 155/85 H 155/85 H Blood Pressure Mean 108 108 Pulse Ox 98 99 97 Oxygen Delivery Method Nasal Cannula Non-Rebreather @ 15L/min Oxygen Flow Rate (L/min) 2 10/24/24 16:00 10/24/24 16:15 10/24/24 16:30 Temperature Temperature Source Pulse Rate Respiratory Rate Respiratory Effort Respiratory Depth Respiratory Pattern Blood Pressure 152/80 H 155/85 H 165/94 H Blood Pressure Mean 100 104 116 Pulse Ox 97 96 Oxygen Delivery Method Oxygen Flow Rate (L/min) 10/24/24 16:45 10/24/24 17:00 10/24/24 17:00 Temperature Temperature Source Pulse Rate Respiratory Rate Respiratory Effort Respiratory Depth Respiratory Pattern Blood Pressure 151/72 H 164/71 H Blood Pressure Mean 96 98 Pulse Ox 100 97 Oxygen Delivery Method Nasal Cannula Oxygen Flow Rate (L/min) 2 Positive well nourished and well developed Constitutional Narrative: BMI is 30.2 General Appearance ED: well developed and NAD HEENT Reports moist mucous membranes Neck supple, no meningeal signs and no JVD Resp normal respiratory effort Auscultation: rales bilateral 1/2 way up Cardio regular rate and regular rhythm GI non-tender and non-distended Palpation: soft Extremity normal to inspection Neuro oriented x3, CN's II-XII intact bilaterally and no sensory deficits noted [place] Coma Scale: document GCS findings Spontaneous Obeys Commands Oriented 15 Sensorium / Orientation: alert Speech: speech normal Motor Exam: strength 5/5 throughout Psych mental status grossly normal MDM MDM MDM Narrative Medical decision making narrative: Differential diagnosis includes congestive heart failure, cardiac dysrhythmia, cardiac ischemia, pneumonia, bronchitis, and electrolyte abnormality. EKG will be obtained to assess for cardiac dysrhythmia and cardiac ischemia. Chest x- raywill be obtained to assess for pneumonia, bronchitis, congestive heart failure. CBC will be obtained to assess for leukocytosis and anemia. Basic metabolic profile will be obtained to assess for electrolyte abnormality and renal function. BNP will be obtained toassess for congestive heart failure. History & Record Review Additional record(s) reviewed:: Prior labs Lab Data Attestation: I reviewed the patient's lab results. Lab results narrative: CBC was reviewed. There is a mild anemia with a hemoglobin of 8.7 and hematocrit of 27.1. Plateletsare slightly low at 135. These are consistent with previous results. Basic metabolic profile was reviewed. Chloride was slightly low at 90. BUN was 29 and creatinine was 5.97. These are improved fromprevious results. Glucose was mildly elevated at 316. BNP was reviewed and was greater than 70,000. Labs: Laboratory Results - last 24 hr 10/24/24 14:07 WBC 6.3 RBC 2.93 L Hgb 8.7 L Hct 27.1 L MCV 92.5 MCH 29.7 MCHC 32.1 RDW Std Deviation 47.4 H RDW Coeff of Ben 14.1 Plt Count 135 L MPV 11.4 Immature Gran % (Auto) 0.600 Neut % (Auto) 78.8 H Lymph % (Auto) 12.8 L Pitkin % (Auto) 4.9 Eos % (Auto) 2.4 Baso % (Auto) 0.5 Absolute Neuts (auto) 5.0 Absolute Lymphs (auto) 0.81 L Nucleated RBC % 0 Sodium 133 Potassium 3.7 Chloride 90 L Carbon Dioxide 25.3 Anion Gap 18 H BUN 29 H Creatinine 5.97 H Estim Creat Clear Calc 11.91 L Est GFR (MDRD) Non-Af 8 L BUN/Creatinine Ratio 4.9 L Glucose 316 H Calcium 8.8 NT pro BNP II > 35568 H Radiography Chest X-Ray - ED: 2 View, Read by ED Physician, Read by Radiologist and CHF (Pulmonary edema) Diagnostic Testing: Clinical Impression(s) from Imaging Studies Chest X-Ray 10/24/24 16:00 IMPRESSION: Extensive pulmonary edema. Underlying focal consolidations not excluded. No pleural effusion or pneumothorax. Reading Location: [facility] PA and lateral chest x-ray was obtained. There are 2 views. On my independent interpretation, lung soto show pulmonary edema. There is no pleural effusion or pneumothorax noted. There is normal cardiac silhouette. Bony thorax is normal. Radiologist also interpreted the x-ray and agrees. EKG Initial EKG: Attestation: I personally reviewed and interpreted this EKG as follows: Interpretation: Sinus Rhythm (95) and Non-Specific ST Changes Comments: EKG was obtained. On my independent interpretation, it showed anormal sinus rhythm with arate of 95. WV interval, QRS interval, and QTc intervals were all normal. [place] was normal. There are nonspecific ST-T wave changes. Prior EKG tracings: available for review Prior: Unchanged (10/10/2024) Management Discussion w/another healthcare provider: Hospitalist Treatment and Re-Evaluation :: Patient was given a dose of Lasix here. Patient did not have any urine output with this as of yet. Patient is not on home oxygen. Currently, patient is on 2L nasal cannula. Patient was advised of herfindings. Patient is scheduled fordialysis tomorrow. However, she is requiring oxygen which she does not have at home. I will discuss case with the hospitalist for admission. She will admit the patient to PCU. Patient understood and was agreeable with the plan. All questions were answered. Discharge Plan Triage Chief Complaint: Shortness of Breath ED Provider: Sylvester Winston Dx/Rx/DC Orders Clinical Impression: Pulmonary edema, ESRD (end stage renal disease) on dialysis, Hypertension Prescriptions: No Action cholecalciferol (vitamin D3) [Vitamin D3] 1,000 UNIT capsule 5,000 unit PO DAILY omeprazole 20 MG capsule 20 mg PO DAILY melatonin 5 MG capsule 10 mg PO QHS atorvastatin 40 mg tablet 40 mg PO QHS sevelamer carbonate 800 mg tablet 1,600 mg PO TID acetaminophen [Tylenol] 325 mg capsule 650 mg PO Q6H PRN (Reason: pain ) ondansetron HCl 4 mg tablet 4 mg PO Q8H PRN PRN (Reason: nausea and vomiting) hydroxyzine HCl 50 mg tablet 50 mg PO Q6H PRN (Reason: itching) nifedipine 90 mg tablet extended release 90 mg PO DAILY Patient Comments: [NO ORIGINAL SIG] clopidogrel 75 mg tablet 75 mg PO DAILY duloxetine 30 mg capsule,delayed release(DR/EC) 30 mg PO DAILY pregabalin 25 mg capsule 25 mg PO QHS Trulicity 0.75 mg/0.5 mL pen injector 0.75 mg subcut QWEEK torsemide 100 mg tablet 100 mg PO DAILY Velphoro 500 mg tablet,chewable 500 mg PO TID calcitriol 0.25 mcg capsule 1.5 mcg PO TUTHSA Rx Instructions: 1.5 mcg orally 3XW; albuterol sulfate 90 mcg/actuation HFA aerosol inhaler 2 puff INHALATION Q4H PRN PRN (Reason: shortness of breath or wheezing) prednisone 20 mg Tablet 40 mg PO BREAKFAST 5 Days Qty: 10 0RF Primary Care Provider: Ignacio Cheatham Referrals: Ignacio Cheatham MD [Primary Care Provider] - Print Language: Bolivian Disposition Disposition: Acute Care Hospital [facility] What to do if you have Problems For any increased pain, shortness of breath, bleeding, nausea or vomiting, chestpain, or any unexpected problems, contact your Primary Care Provider. Call [facility] ([phone]) or report tothe closest Emergency Room. Call 911 if necessary. 10/24/24 175 Cosigner Signature (if applicable): CC: Dr. Ignacio Cheatham MD ~ Signed [facility]08-25-2025 Radiology Diagnostic study note [facility] Imaging Services [address] [place], [place] [id number] Chest PA and Lateral MR#: [id number] Acct: [id number] Name: Margareth GONZALEZ Rep #: [id number] : 1965 F 59 From: Katlin Berger MD PCP: Dr. Ignacio Cheatham MD Status: REG E R Study:Chest PA and Lateral Date of Exam: 10/24/24 Exam# [id number] Ordering Dr: Sylvester Winston DO PROCEDURE: CHEST PA AND LATERAL 10/24/2024 REASON FOR EXAM: DYSPNEA TECHNIQUE: CHEST PA AND LATERAL COMPARISON: none FINDINGS: Extensive pulmonary edema. Underlying focal consolidations not excluded. No pleural effusion or pneumothorax. Cardiac silhouette is within normal limits. No acute fractures. RAD/Chest PA and Lateral IMPRESSION: Extensive pulmonary edema. Underlying focal consolidations not excluded. No pleural effusion or pneumothorax. Reading Location: [facility] CC: Dr. Sylvester Winston DO; Dr. Ignacio Cheatham MD ~ Seafood Clerk: Signed [facility]08-25-2025 Discharge summary Author Sylvester Winston [facility] Note Date/Time October 24, 2024 5: 57pm [facility] Medical Records Department [address] [place] [address] Emergency Department Summary 10/24/24 MR#: [id number] Acct: [id number] Name: Margareth GONZALEZ Rep #:[id number] : 1965 59 From: Sylvester Snyder PCP: Dr. Ignacio Cheatham MD Status:ADM I N Location: [place] [address] HPI History of Present Illness Chief Complaint: Shortness of Breath Informant: patient Onset/Context/Timing Onset: Today Context: gradual Timing: Continuous Quality: Positive for Orthopnea Worsened by: Lying flat Relieved by: Nothing Associated Symptoms sweats; Negative for cough, rhinorrhea, post nasal drip, ear pain, fever, sore throat, chills, clear sputum, white sputum, yellow sputum or green sputum Chest Pain: Positive for Aching, Pleuritic and - (Bilateral chest, right worse than left) Narrative Narrative: Patient presents with shortness of breath that began today. Patient states it came on gradually. Patient states she woke up and felt unwell. Patient states she laid back down and went back to sleep. Patient states she woke up after that she was having some shortness of breath. Patient states her breathing is worse when she lays flat. Patient states nothing makes it better. Patient admits to some sweats. Patient admits to some pain in her chest. Patient states it is worse on the right than on the left. Patient describes as aching. Patient states it is worse with deep breathing. Patient admits to some nausea but denies any vomiting. Patient has dialysis on Thursday and Thursday. Patient states she had a normal dialysis treatment on Thursday, 2 days ago. Patient states she got to her goal weight after dialysis. [facility] Medical History Hyperkalemia Fracture of fibula, right, closed Anemia Osteoarthritis of right knee Pathological fracture, right [...] disorder Benign essential hypertension History of asthma Medical History no medical history Home Medications ?Medication ?Instructions ?Recorded ?Last Taken ?Type cholecalciferol (vitamin D3) 25 5,000 unit PO DAILY CONRELL PPLEMENT 10/03/13 10/09/24 History mcg (1,000 unit) capsule (Vitamin D3) omeprazole 20 mg capsule,delayed 20 mg PO DAILY 10/09/24 History release melatonin 5 mg capsule 10 mg PO QHS sleep 05/27/16 10/09/24 History atorvastatin 40 mg tablet 40 mg PO QHS CHOLESTEROL 02/2110/09/24 History sevelamer carbonate 800 mg tablet 1,600 mg PO TID 08/2210/10/24 History hydroxyzine HCl 50 mg tablet 50 mg PO Q6H PRN itching 06/29/23 10/09/24 History acetaminophen 325 mg capsule 650 mg PO Q6H PRN pain Unknown History (Tylenol) ondansetron HCl 4 mg tablet 4 mg PO Q8H PRN PRN nausea and 07/02/23 10/10/24 History vomiting clopidogrel 75 mg tablet 75 mg PO DAILY 09/06/2409/30 History dulaglutide 0.75 mg/0.5 mL 0.75 mg subcut QWEEK 10/09/24 History subcutaneous pen injector (Trulicity) duloxetine 30 mg capsule,delayed 30 mg PO DAILY 10/09/24 History release nifedipine 90 mg tablet,extended 90 mg PO DAILY BP 10/2410/09/24 History release pregabalin 25 mg capsule 25 mg PO QHS 09/06/24 History albuterol sulfate 90 mcg/actuation 2 puff inhalation Q 4H PRN PRN 10/10/24 10/09/24 History aerosol inhaler shortness of breath or wheez ing calcitriol 0.25 mcg capsule 1.5 mcg PO TUTHSA 10/10/24 10/08/24 History sucroferric oxyhydroxide 500 mg 500 mg PO TID 10/10/24 10/10/24 History chewable tablet (Velphoro) torsemide 100 mg tablet 100 mg PO DAILY 10/10/2412/24 History prednisone 20 mg tablet 40 mg (2 x 20 mg) PO BREAKFA ST 5 10/13/24 Unknown Rx days #10 tabs Allergy/AdvReac Type Severity Reaction Status Date / Time renetta juan Allergy Unknown UNKNOWN Verified 10/24/24 13:48 mold Allergy Unknown unknown Verified 10/24/24 13:48 lisinopril Allergy unknown Verified 10/24/24 13:48 Penicillins Allergy Anaphylaxis Verified 10/24/24 13:48 tetracycline (Tetracycline) Allergy Anaphylaxis Verified 10/24/24 13:48 codeine AdvReac Abd Verified 10/24/24 13:48 cramps/diarrhea diphenhydramine HCl (From AdvReac Upset Verified 10/24/24 13:48 Benadryl) Stomach hydrocodone bitartrate (From AdvReac Abd Verified 10/24/24 13:48 Vicodin) cramps/diarrhea NSAIDS (Non-Steroidal AdvReac Unknown Verified 10/24/24 13:48 Anti-Inflamma Family History Mother Heart disease Hypertension [...] use ROS ROS ED Constitutional Constitutional ED: Reports sweats; Denies chills or fever(s) Eyes Eyes: Reports blurry vision; Denies diplopia ENT ENT ED: Denies rhinorrhea or sore throat Cardiovascular Cardiovascular: Reports chest pain; Denies palpitations Respiratory/Chest Respiratory/Chest: Reports dyspnea; Denies cough Gastrointestinal Gastrointestinal: Denies nausea or vomiting Genitourinary Genitourinary ED: Denies dysuria or hematuria Musculoskeletal Musculoskeletal: Reports back pain and neck pain Integumentary Denies abscess or rash Neurologic Neurologic: Denies headache(s) or weakness Allergic/Immunologic Allergic/Immunologic ED: Denies mouth swelling or urticaria EXAM Physical Exam Const Vital Signs: 10/24/24 13:39 10/24/24 13:40 10/24/24 13:44 Temperature 98.3 F 98.9 F Temperature Source Oral Oral Pulse Rate 97 96 Respiratory Rate 18 20 H Respiratory Effort Respiratory Depth Respiratory Pattern Blood Pressure 136/77 H 154/76 H Blood Pressure Mean 96 102 Pulse Ox 94 84 97 Oxygen Delivery Method Nasal Cannula Room Air Nasal Cannula Oxygen Flow Rate (L/min) 2 2 10/24/24 13:49 10/24/24 14:36 10/24/24 14:44 Temperature 98.8 F Temperature Source Oral Pulse Rate 94 Respiratory Rate 18 Respiratory Effort Short of Breath Respiratory Depth Normal Respiratory Pattern Normal Blood Pressure 167/75 H Blood Pressure Mean 105 Pulse Ox 94 98 Oxygen Delivery Method Nasal Cannula Nasal Cannula Nasal Cannula Oxygen Flow Rate (L/min) 2 2 2 10/24/24 15:00 10/24/24 15:54 10/24/24 16:00 Temperature 98.8 F 98.7 F Temperature Source Oral Oral Pulse Rate 98 92 Respiratory Rate 16 19 H Respiratory Effort Respiratory Depth Respiratory Pattern Blood Pressure 155/85 H 155/85 H Blood Pressure Mean 108 108 Pulse Ox 98 99 97 Oxygen Delivery Method Nasal Cannula Non-Rebreather @ 15L/min Oxygen Flow Rate (L/min) 2 10/24/24 16:00 10/24/24 16:15 10/24/24 16:30 Temperature Temperature Source Pulse Rate Respiratory Rate Respiratory Effort Respiratory Depth Respiratory Pattern Blood Pressure 152/80 H 155/85 H 165/94 H Blood Pressure Mean 100 104 116 Pulse Ox 97 96 Oxygen Delivery Method Oxygen Flow Rate (L/min) 10/24/24 16:45 10/24/24 17:00 10/24/24 17:00 Temperature Temperature Source Pulse Rate Respiratory Rate Respiratory Effort Respiratory Depth Respiratory Pattern Blood Pressure 151/72 H 164/71 H Blood Pressure Mean 96 98 Pulse Ox 100 97 Oxygen Delivery Method Nasal Cannula Oxygen Flow Rate (L/min) 2 Positive well nourished and well developed Constitutional Narrative: BMI is 30.2 General Appearance ED: well developed and NAD HEENT Reports moist mucous membranes Neck supple, no meningeal signs and no JVD Resp normal respiratory effort Auscultation: rales bilateral 1/2 way up Cardio regular rate and regular rhythm GI non-tender and non-distended Palpation: soft Extremity normal to inspection Neuro oriented x3, CN's II-XII intact bilaterally and no sensory deficits noted [place] Coma Scale: document GCS findings Spontaneous Obeys Commands Oriented 15 Sensorium / Orientation: alert Speech: speech normal Motor Exam: strength 5/5 throughout Psych mental status grossly normal MDM MDM MDM Narrative Medical decision making narrative: Differential diagnosis includes congestive heart failure, cardiac dysrhythmia, cardiac ischemia, pneumonia, bronchitis, and electrolyte abnormality. EKG will be obtained to assess for cardiac dysrhythmia and cardiac ischemia. Chest x-raywill be obtained to assess for pneumonia, bronchitis, congestive heart failure. CBC will be obtained to assess for leukocytosis and anemia. Basic metabolic profile will be obtained to assess for electrolyte abnormality and renal function. BNP will be obtained to assess for congestive heart failure. History & Record Review Additional record(s) reviewed:: Prior labs Lab Data Attestation: I reviewed the patient's lab results. Lab results narrative: CBC was reviewed. There is a mild anemia with a hemoglobin of 8.7 and hematocrit of 27.1. Platelets are slightly low at 135. These are consistent with previous results. Basic metabolic profile was reviewed. Chloride was slightly low at 90. BUN was 29 and creatinine was 5.97. These are improved from previous results. Glucose was mildly elevated at 316. BNP was reviewed and was greater than 70,000. Labs: Laboratory Results - last 24 hr 10/24/24 14:07 WBC 6.3 RBC 2.93 L Hgb 8.7 L Hct 27.1 L MCV 92.5 MCH 29.7 MCHC 32.1 RDW Std Deviation 47.4 H RDW Coeff of Ben 14.1 Plt Count 135 L MPV 11.4 Immature Gran % (Auto) 0.600 Neut % (Auto) 78.8 H Lymph % (Auto) 12.8 L Pitkin % (Auto) 4.9 Eos % (Auto) 2.4 Baso % (Auto) 0.5 Absolute Neuts (auto) 5.0 Absolute Lymphs (auto) 0.81 L Nucleated RBC % 0 Sodium 133 Potassium 3.7 Chloride 90 L Carbon Dioxide 25.3 Anion Gap 18 H BUN 29 H Creatinine 5.97 H Estim Creat Clear Calc 11.91 L Est GFR (MDRD) Non-Af 8 L BUN/Creatinine Ratio 4.9 L Glucose 316 H Calcium 8.8 NT pro BNP II > 30729 H Radiography Chest X-Ray - ED: 2 View, Read by ED Physician, Read by Radiologist and CHF (Pulmonary edema) Diagnostic Testing: Clinical Impression(s) from Imaging Studies Chest X-Ray 10/24/24 16:00 IMPRESSION: Extensive pulmonary edema. Underlying focal consolidations not excluded. No pleural effusion or pneumothorax. Reading Location: [facility] PA and lateral chest x-ray was obtained. There are 2 views. On my independent interpretation, lung soto show pulmonary edema. There is no pleural effusion or pneumothorax noted. There is normal cardiac silhouette. Bony thorax is normal. Radiologist also interpreted the x-ray and agrees. EKG Initial EKG: Attestation: I personally reviewed and interpreted this EKG as follows: Interpretation: Sinus Rhythm (95) and Non-Specific ST Changes Comments: EKG was obtained. On my independent interpretation, it showed anormal sinus rhythm with a rate of 95. WV interval, QRS interval, and QTc intervals were all normal. [place] was normal. There are nonspecific ST-T wave changes. Prior EKG tracings: available for review Prior: Unchanged (10/10/2024) Management Discussion w/another healthcare provider: Hospitalist Treatment and Re-Evaluation :: Patient was given a dose of Lasix here. Patient did not have any urine output with this as of yet. Patient is not on home oxygen. Currently, patient is on 2L nasal cannula. Patient was advised of her findings. Patient is scheduled fordialysis tomorrow. However, she is requiring oxygen which she does not have at home. I will discuss case with the hospitalist for admission. She will admit the patient to PCU. Patient understood and was agreeable with the plan. All questions were answered. Discharge Plan Triage Chief Complaint: Shortness of Breath ED Provider: Sylvester Winston Dx/Rx/DC Orders Clinical Impression: Pulmonary edema, ESRD (end stage renal disease) on dialysis, Hypertension Prescriptions: No Action cholecalciferol (vitamin D3) [Vitamin D3] 1,000 UNIT capsule 5,000 unit PO DAILY omeprazole 20 MG capsule 20 mg PO DAILY melatonin 5 MG capsule 10 mg PO QHS atorvastatin 40 mg tablet 40 mg PO QHS sevelamer carbonate 800 mg tablet 1,600 mg PO TID acetaminophen [Tylenol] 325 mg capsule 650 mg PO Q6H PRN (Reason: pain ) ondansetron HCl 4 mg tablet 4 mg PO Q8H PRN PRN (Reason: nausea and vomiting) hydroxyzine HCl 50 mg tablet 50 mg PO Q6H PRN (Reason: itching) nifedipine 90 mg tablet extended release 90 mg PO DAILY Patient Comments: [NO ORIGINAL SIG] clopidogrel 75 mg tablet 75 mg PO DAILY duloxetine 30 mg capsule,delayed release(DR/EC) 30 mg PO DAILY pregabalin 25 mg capsule 25 mg PO QHS Trulicity 0.75 mg/0.5 mL pen injector 0.75 mg subcut QWEEK torsemide 100 mg tablet 100 mg PO DAILY Velphoro 500 mg tablet,chewable 500 mg PO TID calcitriol 0.25 mcg capsule 1.5 mcg PO TUTHSA Rx Instructions: 1.5 mcg orally 3XW; albuterol sulfate 90 mcg/actuation HFA aerosol inhaler 2 puff INHALATION Q4H PRN PRN (Reason: shortness of breath or wheezing) prednisone 20 mg Tablet 40 mg PO BREAKFAST 5 Days Qty: 10 0RF Primary Care Provider: Ignacio Cheatham Referrals: Ignacio Cheatham MD [Primary Care Provider] - Print Language: Bolivian Disposition Disposition: Acute Care Hospital [facility] What to do if you have Problems For any increased pain, shortness of breath, bleeding, nausea or vomiting, chestpain, or any unexpected problems, contact your Primary Care Provider. Call [facility] ([phone]) or report to the closest Emergency Room. Call 911 if necessary. 10/24/24 6327 <Electronically signed by Sylvester Winston DO> Cosigner Signature (if applicable): CC: Dr. Ignacio Cheatham MD ~ Signed [facility] Work Phone: 1(719) 676-600608-22-2025 Telephone encounter Note* Telephone Encounter - Barbara Simmons LPN - 10/21/2024 3:09 PM EDT Per secure [employer] chat, provider agreed to SOC delay. Barbara Simmons LPN [facility] Work Phone: 1(436) 153-773108-22-2025 Miscellaneous Notes* Telephone Encounter - Barbara Simmons LPN - 10/21/2024 3:09 PM EDT Per secure [employer] chat, provider agreed to SOC delay. Barbara Simmons LPN * Telephone Encounter - Barbara Simmons LPN - 10/21/2024 2:56 PM EDT Patient's sister declined scheduled nursing start of care for 10/23/24 and is requesting a start of care on 10/26/24. Please let us know if you agree with this start of care date. We are unable to proceed without your agreement to the change in SOC of date. Thank you, Barbara Simmons LPN documented [facility] Telephone encounter Note * Telephone Encounter - Barbara Simmons LPN - 10/21/2024 2:56 PM EDT Patient's sister declined scheduled nursing start of care for 10/23/24 and is requesting a start of care on 10/26/24. Please let us know if you agree with this start of care date. We are unable to proceed without your agreement to the change in SOC of date. Thank you, Barbara Simmons LPN [facility]08-22-2025 Telephone encounter Note* Telephone Encounter - Barbara Simmons LPN - 10/21/2024 2:51 PM EDT Date/Time: 10/21/2024 2:51 PM Spoke with sister Halle @ phone #: [phone] - Preferred # for contact: [phone] or sister Halle [phone] Have you received help from a home care company in the last 60 days? No Can you commit to a visit in this time frame? Will need M0102 approval - If no, please advise that we would not be able to move forward with services and they would need to contact their provider when they are ready to start services. Are you agreeable to [facility] services? Yes What address will we be seeing you at? [address] [facility] [address] Do you have any upcoming appointments or things we need to schedule around? Dialysis T, Th, Sa Do you have a teachable CG or can you manage your care independently? Independent with care Who? Sister is available for help [facility] Work Phone: [phone] Miscellaneous Notes* Telephone Encounter - Barbara Simmons LPN - 10/21/2024 2:51 PM EDT Date/Time: 10/21/2024 2:51 PM Spoke with sister Halle @ phone #: [phone] - Preferred # for contact: [phone] or sister Halle [phone] Have you received help from a home care company in the last 60 days? No Can you commit to a visit in this time frame? Will need M0102 approval - If no, please advise that we would not be able to move forward with services and they would need to contact their provider when they are ready to start services. Are you agreeable to [facility] services? Yes What address will we be seeing you at? [address] [facility] [address] Do you have any upcoming appointments or things we need to schedule around? Dialysis T, Th, Sa Do you have a teachable CG or can you manage your care independently? Independent with care Who? Sister is available for help documented in this encounterOhio[facility]08-[facility]-2025 Telephone encounter Note * Telephone Encounter - Adelina Cortez - 10/21/2024 2:50 PM EDT Patient sister returned call transferred to [facility] Work Phone: [phone] Miscellaneous Notes* Telephone Encounter - Adelina Cortez - 10/21/2024 2:50 PM EDT Patient sister returned call transferred to [facility] documented in this encounterOhio[facility]-2025 Telephone encounter Note * Telephone Encounter - Nataly Burns LPN - 10/21/2024 2:25 PM EDT My Chart message sent due no working phone. Nataly Burns LPN [facility]08-22-2025 Miscellaneous Notes* Telephone Encounter - Nataly Burns LPN - 10/21/2024 2:25 PM EDT My Chart message sent due no working phone. Nataly Burns LPN * Telephone Encounter - Alondra Chung APRN.CNP - 10/21/2024 11:02 AM EDT Thanks. Was pt notified? Alondra Chung APRN.SALOONKEEPER * Telephone Encounter - Nataly Burns LPN - 10/21/2024 9:58 AM EDT Yes. RX sent to [facility] on 09/12/24 for 180 capsules and 1 refill. Should take her to March 2025. Nataly Burns LPN * Telephone Encounter - Alondra Chung APRN.CNP - 10/20/2024 3:35 PM EDT I received msg from primary care that pt is out of pregabalin but I wrote rx last month x 6 mos. Please let pt know. Alondra Chung APRN.CNP documented in this encounter[facility] Telephone encounter Note * Telephone Encounter - Alondra Chung APRN.CNP - 10/21/2024 11:02 AM EDT Thanks. Was pt notified? Alondra Chung APRN.CNP [facility]08-22-2025 Telephone encounter Note* Telephone Encounter - Nataly Burns LPN - 10/21/2024 9:58 AM EDT Yes. RX sent to [facility] on 09/12/24 for 180 capsules and 1 refill. Should take her to March 2025. Nataly Burns LPN [facility]08-21-2025 Telephone encounter Note* Telephone Encounter - Alondra Chung APRN.CNP - 10/20/2024 3:35 PM EDT I received msg from primary care that pt is out of pregabalin but I wrote rx last month x 6 mos. Please let pt know. Alondra Chung APRN.CNP [facility]08-21-2025 Instructions* Patient Instructions* Sury Gonzalez APRN.CNP - 10/20/2024 3:33 PM EDT - Before bed, take 2 puffs of your albuterol inhaler; you may take additional puffs every 2 hours as needed for nighttime breathing or mucus issues. - Use guaifenesin (Mucinex) up to one tablet once daily as needed, always with a full glass of water to help loosen secretions. - A refill request for pregabalin (Lyrica) has been sent to your prescriber to help with restless legs and pain. - A referral for home physical therapy has been placed to assist with your back stenosis symptoms and walking difficulties. - Flonase nassal spray- 2 sprays each nare daily as needed for allergies documented in this encounterOhio[facility]25 NoteHNO ID: [id number] Author: SURY GONZALEZ APRN.NOY Service: ? Author Type: Nurse Practitioner Type: Progress Notes Filed: 10/20/2024 15:33 Note Text: This is a 59 year old female who presents today with: No chief complaint on file. HISTORY OF PRESENT ILLNESS: Margareth Gonzalez is a 59 year old female. No chief complaint on file. Arnold Gonzalez is a 59-year-old female with a history of COPD, CASSIE, GERD, IBS, and spinal stenosis, presenting for evaluation of dyspnea, chest pain, and back pain. Dyspnea: - Dyspnea primarily at night; improves during the day with activity. - Associated with mucus production; uses albuterol inhaler Q4H PRN with some relief. - Difficulty using CPAP due to facial pain after 2 hours of use. - Reports SpO2 levels dropping to 80% at night; SpO2 levels were 100% when on oxygen in the hospital. - Denies fever or chills. - Recent hospitalization for pneumonia. - Denies current wheezing; occasional cough. - Denies chunky breathing this week. Chest Pain: - Intermittent chest pain described as like right here where they set the elephant on you. - Pain occurs when lying down at night and upon waking in the morning. - Aggravated by breathing; Tylenol provides minimal relief. - Denies heart racing or swelling in feet. Back Pain: - Believes pain is due to spinal stenosis acting up again. - Pain radiates down legs, up back, into the back of the neck. - Uses heating pad, TENS unit, and Bengay with some relief. - Requests home therapy. - Taking Cymbalta; inquires about increasing dosage for pain management. - Out of Lyrica, which previously helped with restless legs. CASSIE: - Difficulty using CPAP due to facial pain after 2 hours of use. - Reports SpO2 levels dropping to 80% at night; SpO2 levels were 100% when on oxygen in the hospital. - Denies current wheezing; occasional cough. - Denies chunky breathing this week. COPD: - Recent hospitalization for pneumonia. - Denies current wheezing; occasional cough. - Denies chunky breathing this week. GERD: - Chronic nausea and vomiting attributed to GERD and IBS. IBS: - Currently experiencing constipation, attributed to recent morphine use in the hospital. - Taking stool softeners; requests a laxative. Vision Changes: - Intermittent blurry vision; has an eye doctor. Tremors: - Reports benign idiopathic tremors. Weight Loss: - Reports ongoing weight loss, which is acceptable to her. Mental Health: - Reports low energy and interest in activities. - Denies suicidal ideation; jokingly mentions homicidal ideation. - Taking Cymbalta for mental health management. PAST MEDICAL HISTORY: PAST MEDICAL HISTORY Diagnosis Date Acute gastritis without mention of hemorrhage Allergic rhinitis Anaphylaxis Anemia Asthma ([facility]) Back pain Benign essential tremor Bipolar I disorder, most recent episode (or current) unspecified sectrum Bone mass Candidiasis, intertrigo Chronic kidney disease Contraceptive management Depression Diabetes ([facility]) Diarrhea DVT, lower extremity ([facility]) 08/2014 Right leg (6) Esophagitis ESRD (end stage renal disease) ([facility]) 07/03/2022 Facial fracture due to fall ([facility]) Fatigue Fibromyalgia Fracture Fracture of shaft of fibula GERD (gastroesophageal reflux disease) HLD (hyperlipidemia) on tricor Hyperlipidemia Hypertension Hypomagnesemia Hypopotassemia IBS (irritable bowel syndrome) Insomnia Intertrigo Knee pain Morbid obesity ([facility]) 03/11/2011 Myalgia Nausea Neck pain Neuropathy [...] retinopathy PAST SURGICAL HISTORY OF 04/26/2008 Bilateral ey (more content not included)...[facility]08-21-2025 History of Present illness Narrative* Sury Gonzalez APRN.[facility] - 10/20/2024 2:56 PM EDT This is a 59 year old female who presents today with: No chief complaint on file. HISTORY OF PRESENT ILLNESS: Margareth Gonzalez is a 59 year old female. No chief complaint on file. Arnold Gonzalez is a 59-year-old female with a history of COPD, CASSIE, GERD, IBS, and spinal stenosis, presenting for evaluation of dyspnea, chest pain, and back pain. Dyspnea: - Dyspnea primarily at night; improves during the day with activity. - Associated with mucus production; uses albuterol inhaler Q4H PRN with some relief. - Difficulty using CPAP due to facial pain after 2 hours of use. - Reports SpO2 levels dropping to 80% at night; SpO2 levels were 100% when on oxygen in the hospital. - Denies fever or chills. - Recent hospitalization for pneumonia. - Denies current wheezing; occasional cough. - Denies chunky breathing this week. Chest Pain: - Intermittent chest pain described as like right here where they set the elephant on you. - Pain occurs when lying down at night and upon waking in the morning. - Aggravated by breathing; Tylenol provides minimal relief. - Denies heart racing or swelling in feet. Back Pain: - Believes pain is due to spinal stenosis acting up again. - Pain radiates down legs, up back, into the back of the neck. - Uses heating pad, TENS unit, and Bengay with some relief. - Requests home therapy. - Taking Cymbalta; inquires about increasing dosage for pain management. - Out of Lyrica, which previously helped with restless legs. CASSIE: - Difficulty using CPAP due to facial pain after 2 hours of use. - Reports SpO2 levels dropping to 80% at night; SpO2 levels were 100% when on oxygen in the hospital. - Denies current wheezing; occasional cough. - Denies chunky breathing this week. COPD: - Recent hospitalization for pneumonia. - Denies current wheezing; occasional cough. - Denies chunky breathing this week. GERD: - Chronic nausea and vomiting attributed to GERD and IBS. IBS: - Currently experiencing constipation, attributed to recent morphine use in the hospital. - Taking stool softeners; requests a laxative. Vision Changes: - Intermittent blurry vision; has an eye doctor. Tremors: - Reports benign idiopathic tremors. Weight Loss: - Reports ongoing weight loss, which is acceptable to her. Mental Health: - Reports low energy and interest in activities. - Denies suicidal ideation; jokingly mentions homicidal ideation. - Taking Cymbalta for mental health management. PAST MEDICAL HISTORY: PAST MEDICAL HISTORY Diagnosis Date Acute gastritis without mention of hemorrhage Allergic rhinitis Anaphylaxis Anemia Asthma ([facility]) Back pain Benign essential tremor Bipolar I disorder, most recent episode (or current) unspecified sectrum Bone mass Candidiasis, intertrigo Chronic kidney disease Contraceptive management Depression Diabetes ([facility]) Diarrhea DVT, lower extremity ([facility]) 08/2014 Right leg (6) Esophagitis ESRD (end stage renal disease) ([facility]) 07/03/2022 Facial fracture due to fall ([facility]) Fatigue Fibromyalgia Fracture Fracture of shaft of fibula GERD (gastroesophageal reflux disease) HLD (hyperlipidemia) on tricor Hyperlipidemia Hypertension Hypomagnesemia Hypopotassemia IBS (irritable bowel syndrome) Insomnia Intertrigo Knee pain Morbid obesity ([facility]) 03/11/2011 Myalgia Nausea Neck pain Neuropathy [...] Benadryl [Diphenhydramine Hcl], Codeine, Lisinopril, Mold, Nsaids (Vjm-GdsfetpbsLisy-Ujhlcvywkooq Drug), Penicillins, Seasonal Allergies, Tetracycline, Vanilla Extract, and Vanilla Extract Flavor MEDICATIONS Current Outpatient Medications Medication Sig ondansetron orally disintegrating (ZOFRAN ODT) 4 mg disintegrating tablet Take 1 tablet by mouth every 8 hours as needed for nausea/vomiting. torsemide (DEMADEX) 100 mg tablet Take 100 mg by mouth once daily. albuterol HFA (PROVENTIL HFA, VENTOLIN HFA) 90 mcg/actuation inhaler Inhale 2 puffs as instructed every 4 hours as needed. pregabalin (LYRICA) 25 mg capsule Take 2 capsules by mouth daily at bedtime for 180 days. CPAP/BIPAP/OTHER APAP 5-20 cmH2O [facility] Blood-Glucose Meter (ONETOUCH VERIO FLEX [...] a week. DX: E11.40 Type 2 DM hydrOXYzine HCl (ATARAX) 50 mg tablet Take 1 tablet by mouth every 6 hours as needed for itching/rash. omeprazole (PRILOSEC) 20 mg capsule Take 1 capsule by mouth once daily. calcitriol (ROCALTROL) 0.25 mcg capsule 6 pills daily 3X/week -- Per diaylsis NIFEdipine ER (PROCARDIA XL) 30 mg 24 [...] Take 5,000 Units by mouth twice daily. Hhteusur-Vx-Pss-Fe-FA ( VITAMIN) ORAL Tab Take 1 tablet by mouth once daily. clopidogrel (PLAVIX) 75 mg tablet Take 1 tablet by mouth once daily. sevelamer carbonate (RENVELA) 800 mg tablet Two tablets by mouth with meals -- Ordered by dialysis No current facility-administered medications for this visit. [...] Cancer Other none Breast Cancer Other none SOCIAL HISTORY[1] REVIEW OF SYSTEMS Constitutional: (+) weight loss, (+) fatigue, (-) fever, (-) chills Head: (+) morning headaches, (+) facial pain Eyes: (+) blurred vision Neck: (+) neck pain Cardiovascular: (+) chest pain, (-) peripheral edema Respiratory: (+) nocturnal dyspnea, (+) orthopnea, (+) cough, (+) sputum production, (-) wheezing Gastrointestinal: (+) nausea, (+) vomiting, (+) constipation Genitourinary: (-) dysuria, (-) hematuria Musculoskeletal: (+) back pain Neurological: (+) tremors, (+) gait instability, (+) restless legs Psychiatric: (+) insomnia, (-) anhedonia, (-) suicidal ideation Endocrine: (-) polydipsia EXAM: BP 128/66 Pulse 100 Wt 81.4 kg (179 lb 7.3 oz) LMP 09/20/2014 SpO2 (!) 82% BMI 27.29 kg/m PHYSICAL EXAM: GENERAL: NAD, alert and oriented. SKIN: Multiple ecchymosis on arms from IVs and blood draws HEAD: Normocephalic. HEENT: nasal turbinates smooth and pink- boggy LUNGS: Clear to auscultation bilaterally, no wheezes/rhonchi/rales. HEART: Regular rate and rhythm, no murmurs. No ectopy. EXTREMITIES: Normal, no deformities, multiple ecchymotic skin discoloration, no edema. Left forearmfistula with + bruit NEURO: Awake, alert and oriented x3, cranial nerves II-XII grossly intact, normal gait, no involuntary motions. LABS: Labs: - (Today) Urinalysis (Dip): Positive for infection Imaging: - Fistulogram: Stricture identified and dilated ASSESSMENT/PLAN: 1. ESRD (end stage renal disease) on dialysis (HCC) (N18.6) - On dialysis; no edema noted today after 3 kg fluid removal. - Continues to take phosphate binder with meals; no longer taking sevelamer. - On diuretic, taken on dialysis days. - Constipation likely secondary to recent morphine use in hospital; taking stool softeners. - Provided sample laxative for occasional use. - Samples of Miralax given 2. Chronic obstructive pulmonary disease with acute lower respiratory infection (HCC) (J44.0) 3. Bacterial pneumonia (J15.9) 4. Chronic respiratory failure with hypoxia (HCC) (J96.11) - Recent hospitalization for pneumonia; ongoing nocturnal hypoxia (SpO2 74-80% at night). - Difficulty tolerating CPAP due to facial pain; frequent nocturnal dyspnea and mucus production. - Lungs clear on exam; no crackles or wheezing noted. - Albuterol inhaler use increased; instructed on safe use every 2 hours PRN. - Recommended Mucinex PRN for mucus; advised to take with full glass of water. - Discussed safety of Mucinex versus Robitussin; patient educated on proper use. - Discussed need for oxygen at night; patient advised to follow up with pulmonology. - Home care ordered for PT/ OT eval 5. Primary hypertension (I10) - Blood pressure management ongoing. 6. Chronic midline low back pain without sciatica (M54.50) - Chronic back pain attributed to spinal stenosis; pain radiates to legs, neck, and back. - Using heating pad and topical analgesics; TENS unit previously used. - Home physical therapy ordered. - Lyrica refill requested for restless legs. 7. Screening for depression (Z13.31) - On Cymbalta; discussed limitations of increasing dose due to renal disease. - Denies suicidal ideation. 8. Seasonal allergic rhinitis, unspecified trigger - ICD9: 477.9, ICD10: J30.2 - exacerbation - FLUTICASONE PROPIONATE 50 MCG/ACTUATION NASAL SPRAY,SUSPENSION Discussed treatment plan and patient voices understanding. Patient's questions answered appropriately. Medications and potential side effects were discussed and patient voices understanding. Return to the office as scheduled or as needed for worsening/no improvement. 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 documented in this [facility]25 [facility]08-14-2025 Discharge summary [facility] Medical Records Department [address] [place] [address] Instructions for Home/Discharge Instructions 10/13/24 1452 MR#: [id number] Acct: [id number] Name: Margareth GONZALEZ Rep #:[id number] : 1965 59 From: Hipolito soares MD PCP: Dr. Ignacio Cheatham MD Status:ADM I N Discharge Instructions DC O2, CPAP, BIPAP needs Home O2 Discharge instructions: No Dressing / Incision Discharge Activity: Return to Normal Activity Dressing / Incision Call your doctor if you observe: Fever of 101 or Higher, Shortness of breath, Dizziness, Fainting spells, Swelling in the ankles, Chest pain and Increased palpitations (irregular heartbeat) Follow Up Care Test Results: Test results from this visit will be discussed in further detail at your follow- up appointment, if applicable. Discharge Plan Admission Admit Date/Time: 10/10/24 20:31 Attending Provider: Hipolito Shepard Primary Care Provider: Ignacio Cheatham Consulting Providers: Sofía Hill; Son Hallman Discharge Orders/Prescriptions Prescriptions: New prednisone 20 mg Tablet 40 mg PO BREAKFAST 5 Days Qty: 10 0RF Continued cholecalciferol (vitamin D3) [Vitamin D3] 1,000 UNIT capsule 5,000 unit PO DAILY omeprazole 20 MG capsule 20 mg PO DAILY melatonin 5 MG capsule 10 mg PO QHS atorvastatin 40 mg tablet 40 mg PO QHS sevelamer carbonate 800 mg tablet 1,600 mg PO TID acetaminophen [Tylenol] 325 mg capsule 650 mg PO Q6H PRN (Reason: pain ) ondansetron HCl 4 mg tablet 4 mg PO Q8H PRN PRN (Reason: nausea and vomiting) hydroxyzine HCl 50 mg tablet 50 mg PO Q6H PRN (Reason: itching) nifedipine 90 mg tablet extended release 90 mg PO DAILY Patient Comments: [NO ORIGINAL SIG] clopidogrel 75 mg tablet 75 mg PO DAILY duloxetine 30 mg capsule,delayed release(DR/EC) 30 mg PO DAILY pregabalin 25 mg capsule 25 mg PO QHS Trulicity 0.75 mg/0.5 mL pen injector 0.75 mg subcut QWEEK torsemide 100 mg tablet 100 mg PO DAILY Velphoro 500 mg tablet,chewable 500 mg PO TID calcitriol 0.25 mcg capsule 1.5 mcg PO TUTHSA Rx Instructions: 1.5 mcg orally 3XW; albuterol sulfate 90 mcg/actuation HFA aerosol inhaler 2 puff INHALATION Q4H PRN PRN (Reason: shortness of breath or wheezing) Referrals / Follow Up: Sofía Hill MD [Med Staff - Consulting] - Ignacio Cheatham MD [Primary Care Provider] - Disposition Disposition (needs filled in before D/C Order can be placed): Home, Self Care 10/13/24 1511Hipolito Shepard MD CC: Dr. Son Hallman DO; Dr. Sofía Hill MD; Dr. Ignacio Cheatham MD ~ Signed [facility]08-13-2025 Progress note Author Hipolito Shepard [facility] Note Date/Time October 12, 2024 3: 33pm [facility] Medical Records Department [address] [place] [address] Progress Note - Hospitalist 10/12/24 1522 MR#: [id number] Acct: [id number] Name: Margareth GONZALEZ ARNOLD Rep #:[id number] : 1965 59 From: Hipolito soares MD PCP: Dr. Ignacio Cheatham MD Status:ADM I N Location: [place] [address] Subjective Subjective Doing well, feels better than on admission. Objective Data Objective Data Vital Signs: Vital Signs Temp Pulse Resp BP Pulse Ox O2 Del Method O2 Flow Rate 97.3 F L 103 H 18 138/73 H 98 Nasal Cannula 2 10/12/24 15:20 10/12/24 15:20 10/12/24 15:20 10/12/24 15:20 10/12/24 15:20 10/12/24 15:20 10/12/24 15:20 Oxygen Flow Rate (L/min) 2 Oxygen Delivery Method Nasal Cannula Weight: 179 lb 3.2 oz Body Mass Index (BMI) 27.2 Intake & Output: Intake and Output for Last 24 Hours 10/11/24 10/12/24 10/13/24 03:59 03:59 03:59 Intake Total 850 / 850 1790 / 1790 240 / 240 Output Total 5950 / 5950 Balance 850 / 850 -4160 / -4160 240 / 240 Lab / Micro Data 10/12/24 05:30 10/12/24 05:30 Labs: Laboratory Results - last 24 hr 10/11/24 16:23: POC Glucose 232 H 10/11/24 22:24: POC Glucose 422 H 10/12/24 00:51: POC Glucose 163 H 10/12/24 05:30: WBC 5.4, RBC 3.15 L, Hgb 9.5 L, Hct 28.8 L, MCV 91.4, MCH 30.2, MCHC 33.0, RDW Std Deviation 43.8, RDW Coeff of Ben 13.3, Plt Count 151, MPV 10.9, Immature Gran % (Auto) 0.600, Neut % (Auto) 92.1 H, Lymph % (Auto) 5.6 L, Pitkin % (Auto) 1.7, Eos % (Auto) 0.0, Baso % (Auto) 0.0, Absolute Neuts (auto) 5.0, Absolute Lymphs (auto) 0.30 L, Nucleated RBC % 0, Sodium 128 L, Potassium 5.1, Chloride 88 L, Carbon Dioxide 17.6 L, Anion Gap 22 H, BUN 56 H, Creatinine 6.43 H, Estim Creat Clear Calc 10.54 L, Est GFR (MDRD) Non-Af 7 L, BUN/Creatinine Ratio 8.7 L, Glucose 238 H, Calcium 9.6, Phosphorus 6.1 H 10/12/24 06:32: POC Glucose 228 H 10/12/24 11:26: POC Glucose 320 H Micro: Microbiology 10/10/24 16:54 Urine, Clean Catch Urine Culture - Preliminary Alpha hemolytic organism 10/11/24 04:57 Stool Stool Lactoferrin - Final 10/11/24 04:57 Stool Enteric Bacteriology - Final 10/11/24 04:57 Stool Clostridioides difficile (PCR) - Final 10/10/24 23:40 Mucosa - Nasopharyngeal Respiratory Panel (PCR) - Final 10/10/24 16:54 Urine, Random Legionella Antigen - Final 10/10/24 16:54 Urine, Random Streptococcus pneumoniae Antigen (M - Final 10/10/24 16:17 Mucosa - Nose SARS-CoV-2, Influenza & RSV (PCR) - Final Radiography Diagnostic Testing: Radiology Impression Venous Doppler Study 10/10/24 21:47 Interpretation Summary Deep veins of the lower extremities are bilaterally patent and compressible segmentally. There is no evidence of deep vein thrombosis on either side. Valvular competence appears intact within the proximal deep venous systems bilaterally. The great saphenous veins appear bilaterally patent and compressible segmentally. Pulsatile flow is noted in the deep venous system bilaterally, which may be indicative of elevated central venous pressure (i.e. congestive heart failure, pulmonary hypertension, etc.). Clinical correlation is advised. Ordering Physician: Son Hallman Referring Physician: Ignacio Cheatham Performed By: Lion Araya, RVT Physical Exam Narrative General: Alert, Oriented x3, Cooperative, No apparent distress HEENT: Atraumatic, PERRLA, EOMI, Normocephalic Oral: Moist Mucosa Neck: Supple, No JVD Lungs: Diminished, Normal air movement, No rhonchi, scattered wheeze, No rales Cardiovascular: Regular rate, Regular Rhythm, Normal S1, Normal S2, No murmurs Abdomen: Soft, Non Tender, Non-Distended, No Hepato-splenomegaly Extremities: No edema, Capillary Refill Less than 3 Seconds Skin: No rashes, No breakdown Musculoskeletal: No Tenderness to Palpation of Joints or Extremities Neurological: No focal neurological deficits, moves all extremities Psych/Mental Status: Normal Affect, Appropriate Assessment & Plan Assessment/Plan (1) COPD exacerbation: (2) Acute respiratory insufficiency: (3) Diarrhea: QUALIFIERS: Diarrhea type: presumed infectious Qualified Code(s):R19.7 - Diarrhea, unspecified (4) Hyperkalemia: (5) ESRD (end stage renal disease) on dialysis: PLAN: Plan 1. Acute hypoxic respiratory insufficiency secondary to COPD exacerbation with possible pneumonia and UTI ? Continue with steroids and breathing treatments ? She quickly resolved down to room air ? No leukocytosis but will continue with antibiotics for another 48 hours pending sputum culture ? Respiratory panels are negative ? Her D-dimer was elevated so CTA of the chest was done which was negative for PE however because she has a history of a DVT Dopplers were obtained which were also negative ? Will cover both sources of possible infection with Levaquin after dialysis 3 days a week 2. Essential HTN/HLD ? Blood pressures are little bit on the high side, will make adjustments ? Continue currently with her home blood pressure medications as well as as needed hydralazine ? Continue with Lipitor 3. DM2 ? She is only on dulaglutide which will be held ? Continue with sliding scale insulin ? Accu-Cheks ACHS ? Will monitor and make adjustments as necessary 4. IBS with hyperkalemia and diarrhea ? She does have diarrhea as part of her IBS but she was also presenting with hyperkalemia at 6.2 and received Kayexalate ? Her diarrhea is likely related to her IBS and her Kayexalate however fecal studies were obtained and all were negative though we are waiting for ova and parasites ? Hyperkalemia is resolved 5. Iron deficiency anemia ? Likely secondary to her gastric bypass ? B12 and folic acid are stable ? Continue with replacement 6. Bipolar disorder ? Stable ? Continue with her home meds 7. GERD ? Stable ? Continue with PPI DVT: Heparin Charges/Coding Visit Charges Inpatient E&M: 03307 Subs Hosp L2 10/12/24 1533 <Electronically signed by Hipolito Shepard MD> Cosigner Signature (if applicable): CC: ~ Signed [facility] Work Phone: [phone] 442-331408-13-2025 Progress note [facility] Medical Records Department [address] [place] [address] Progress Note - Hospitalist 10/12/24 1522 MR#: [id number] Acct: [id number] Name: Margareth GONZALEZ Rep #:[id number] : 1965 59 From: Hipolito soares MD PCP: Dr. Ignacio Cheatham MD Status:ADM I N Location: [place] [address] Subjective Subjective Doing well, feels better than on admission. Objective Data Objective Data Vital Signs: Vital Signs Temp Pulse Resp BP Pulse Ox O2 Del Method O2 Flow Rate 97.3 F L 103 H 18 138/73 H 98 Nasal Cannula 2 10/12/24 15:20 10/12/24 15:20 10/12/24 15:20 10/12/24 15:20 10/12/24 15:20 10/12/24 15:20 10/12/24 15:20 Oxygen Flow Rate (L/min) 2 Oxygen Delivery Method Nasal Cannula Weight: 179 lb 3.2 oz Body Mass Index (BMI) 27.2 Intake & Output: Intake and Output for Last 24 Hours 10/11/24 10/12/24 10/13/24 03:59 03:59 03:59 Intake Total 850 / 850 1790 / 1790 240 / 240 Output Total 5950 / 5950 Balance 850 / 850 -4160 / -4160 240 / 240 Lab / Micro Data 10/12/24 05:30 10/12/24 05:30 Labs: Laboratory Results - last 24 hr 10/11/24 16:23: POC Glucose 232 H 10/11/24 22:24: POC Glucose 422 H 10/12/24 00:51: POC Glucose 163 H 10/12/24 05:30: WBC 5.4, RBC 3.15 L, Hgb 9.5 L, Hct 28.8 L, MCV 91.4, MCH 30.2, MCHC 33.0, RDW Std Deviation 43.8, RDW Coeff of Ben 13.3, Plt Count 151, MPV 10.9, Immature Gran % (Auto) 0.600, Neut %(Auto) 92.1 H, Lymph % (Auto) 5.6 L, Pitkin % (Auto) 1.7, Eos % (Auto) 0.0, Baso % (Auto) 0.0, Absolute Neuts (auto) 5.0, Absolute Lymphs (auto) 0.30 L, Nucleated RBC % 0, Sodium 128 L, Potassium 5.1, Chloride 88 L, Carbon Dioxide 17.6 L, Anion Gap 22 H, BUN 56 H, Creatinine 6.43 H, Estim Creat ClearCalc 10.54 L, Est GFR (MDRD) Non-Af 7 L, BUN/Creatinine Ratio 8.7 L, Glucose 238 H, Calcium 9.6, Phosphorus 6.1 H 10/12/24 06:32: POC Glucose 228 H 10/12/24 11:26: POC Glucose 320 H Micro: Microbiology 10/10/24 16:54 Urine, Clean Catch Urine Culture - Preliminary Alpha hemolytic organism 10/11/24 04:57 Stool Stool Lactoferrin - Final 10/11/24 04:57 Stool Enteric Bacteriology - Final 10/11/24 04:57 Stool Clostridioides difficile (PCR) - Final 10/10/24 23:40 Mucosa - Nasopharyngeal Respiratory Panel (PCR) - Final 10/10/24 16:54 Urine, Random Legionella Antigen - Final 10/10/24 16:54 Urine, Random Streptococcus pneumoniae Antigen (M - Final 10/10/24 16:17 Mucosa - Nose SARS-CoV-2, Influenza & RSV (PCR) - Final Radiography Diagnostic Testing: Radiology Impression Venous Doppler Study 10/10/24 21:47 Interpretation Summary Deep veins of the lower extremities are bilaterally patent and compressible segmentally. There is no evidence of deep vein thrombosis on either side. Valvular competence appears intact within the proximal deep venous systems bilaterally. The great saphenous veins appear bilaterally patent and compressible segmentally. Pulsatile flow isnoted in the deep venous system bilaterally, which may be indicative of elevated central venous pressure (i.e. congestive heart failure, pulmonary hypertension, etc.). Clinical correlation is advised. Ordering Physician: Son Hallman Referring Physician: Ignacio Cheatham Performed By: Lion Araya, RVT Physical Exam Narrative General: Alert, Oriented x3, Cooperative, No apparent distress HEENT: Atraumatic, PERRLA, EOMI, Normocephalic Oral: Moist Mucosa Neck: Supple, No JVD Lungs: Diminished, Normal air movement, No rhonchi, scattered wheeze, No rales Cardiovascular: Regular rate, Regular Rhythm, Normal S1, Normal S2, No murmurs Abdomen: Soft, Non Tender, Non-Distended, No Hepato-splenomegaly Extremities: No edema, Capillary Refill Less than 3 Seconds Skin: No rashes, No breakdown Musculoskeletal: No Tenderness to Palpation of Joints or Extremities Neurological: No focal neurological deficits, moves all extremities Psych/Mental Status: Normal Affect, Appropriate Assessment & Plan Assessment/Plan (1) COPD exacerbation: (2) Acute respiratory insufficiency: (3) Diarrhea: QUALIFIERS: Diarrhea type: presumed infectious Qualified Code(s):R19.7 - Diarrhea, unspecified (4) Hyperkalemia: (5) ESRD (end stage renal disease) on dialysis: PLAN: Plan 1. Acute hypoxic respiratory insufficiency secondary to COPD exacerbation with possible pneumonia and UTI ? Continue with steroids and breathing treatments ? She quickly resolved down to room air ? No leukocytosis but will continue with antibiotics for another 48 hours pending sputum culture ? Respiratory panels are negative ? Her D-dimer was elevated so CTA of the chest was done which was negative for PE however because she has a history of a DVT Dopplers were obtained which were also negative ? Will cover both sources of possible infection with Levaquin after dialysis 3 days a week 2. Essential HTN/HLD ? Blood pressures are little bit on the high side, will make adjustments ? Continue currently with her home blood pressure medications as well as as needed hydralazine ? Continue with Lipitor 3. DM2 ? She is only on dulaglutide which will be held ? Continue with sliding scale insulin ? Accu-Cheks ACHS ? Will monitor and make adjustments as necessary 4. IBS with hyperkalemia and diarrhea ? She does have diarrhea as part of her IBS but she was also presenting with hyperkalemia at 6.2 and received Kayexalate ? Her diarrhea is likely related to her IBS and her Kayexalate however fecal studies were obtained and all were negative though we are waiting for ova and parasites ? Hyperkalemia is resolved 5. Iron deficiency anemia ? Likely secondary to her gastric bypass ? B12 and folic acid are stable ? Continue with replacement 6. Bipolar disorder ? Stable ? Continue with her home meds 7. GERD ? Stable ? Continue with PPI DVT: Heparin Charges/Coding Visit Charges Inpatient E&M: 98689 Subs Hosp L2 10/12/24 1533 Cosigner Signature (if applicable): CC: ~ Signed [facility]08-12-2025 Progress note Author Hipolito Shepard [facility] Note Date/Time October 11, 2024 3: 33pm [facility] Medical Records Department [address] [place] [address] Progress Note - Hospitalist 10/11/24 1522 MR#: [id number] Acct: [id number] Name: Margareth GONZALEZ Rep #:[id number] : 1965 59 From: Hipolito soares MD PCP: Dr. Ignacio Cheatham MD Status:ADM I N Location: [place] [address] Subjective Subjective No issues overnight, diarrhea was due to the Kayexalate, C. difficile testing and enteric pathogen panel was negative continue to precautions Objective Data Objective Data Vital Signs: Vital Signs Temp Pulse Resp BP Pulse Ox O2 Del Method O2 Flow Rate 97.2 F L 82 16 100/60 94 Room Air 2 10/11/24 12:15 10/11/24 12:15 10/11/24 12:15 10/11/24 12:15 10/11/24 12:15 10/11/24 12:15 10/11/24 11:30 Oxygen Flow Rate (L/min) 2 Oxygen Delivery Method Room Air Weight: 168 lb 13.985 oz Body Mass Index (BMI) 25.7 Intake & Output: Intake and Output for Last 24 Hours 10/10/24 10/11/24 10/12/24 03:59 03:59 03:59 Intake Total 850 / 850 1430 / 1430 Output Total 5950 / 5950 Balance 850 / 850 -4520 / -4520 Lab / Micro Data 10/11/24 04:10 10/11/24 04:10 Labs: Laboratory Results - last 24 hr 10/10/24 00:15: Troponin T Hi Sens 2 Hr 104 H* 10/10/24 16:11: WBC 6.0, RBC 3.70 L, Hgb 11.3 L, Hct 33.4 L, MCV 90.3, MCH 30.5,MCHC 33.8, RDW Std Deviation 42.9, RDW Coeff of Ben 13.0, Plt Count 143 L, MPV 11.0, Immature Gran % (Auto) 0.700, Neut % (Auto) 74.7 H, Lymph % (Auto) 16.1 L,Pitkin % (Auto) 5.3, Eos % (Auto) 2.5, Baso % (Auto) 0.7, Absolute Neuts (auto) 4.5, Absolute Lymphs (auto) 0.97, Nucleated RBC % 0, Sodium Cancelled, PotassiumCancelled, Chloride Cancelled, Carbon Dioxide Cancelled, Anion Gap Cancelled, BUN Cancelled, Creatinine Cancelled, Estim Creat Clear Calc Cancelled, Est GFR (MDRD) Non-Af Cancelled, BUN/Creatinine Ratio Cancelled, Glucose Cancelled, Hemoglobin A1c 8.1 H, Calcium Cancelled, Magnesium Cancelled, Total Bilirubin Cancelled, AST Cancelled, ALT Cancelled, Alkaline Phosphatase Cancelled, Troponin T High Sens Cancelled, Total Protein Cancelled, Albumin Cancelled, Globulin Cancelled, Albumin/Globulin Ratio Cancelled, Lipase Cancelled 10/10/24 16:26: D-Dimer Quant (PE/DVT) 2.92 H*, Lactic Acid < 1.0, Serum Folate 7.19 10/10/24 16:54: Urine Color Straw, Urine Clarity Sl. Cloudy, Urine pH 6.0, Ur Specific Brule 1.010, Urine Protein 100 H, Urine Glucose (UA) 1000 H, Urine Ketones Negative, Urine Occult Blood 150 H, Urine Nitrite Negative, Urine Bilirubin Negative, Urine Urobilinogen Normal, Ur Leukocyte Esterase 500 H, Urine RBC 5-10 SEEN, Urine WBC 10-25 SEEN, Ur Squamous Epith Cells 0-5 SEEN, Urine Bacteria 0 SEEN, Urine Mucus 0 SEEN 10/10/24 17:40: Sodium 128 L, Potassium 6.2 H*, Chloride 91 L, Carbon Dioxide 15.7 L, Anion Gap 21 H, BUN 65 H, Creatinine 8.20 H*, Estim Creat Clear Calc 8.46 L*, Est GFR (MDRD) Non-Af 5 L, BUN/Creatinine Ratio 7.9 L, Glucose 298 H, Calcium 8.9, Magnesium 2.2, Total Bilirubin 0.50, AST 34 H, ALT 9, Alkaline Phosphatase 66, Troponin T High Sens 97 H* D, [place] > [address] H, Total Protein 5.8 L, Albumin 3.5, Globulin 2.3, Albumin/Globulin Ratio 1.5, Lipase 39,Vitamin B12 357, TSH 3.000 10/10/24 20:22: POC Glucose 296 H 10/10/24 22:53: POC Glucose 350 H 10/11/24 00:00: POC Glucose 324 H 10/11/24 04:10: WBC 3.9 L, RBC 3.63 L, Hgb 11.0 L, Hct 32.9 L, MCV 90.6, MCH 30.3, MCHC 33.4, RDW Std Deviation 43.2, RDW Coeff of Ben 13.2, Plt Count 152, MPV 10.3, Immature Gran % (Auto) 0.800, Neut % (Auto) 91.3 H, Lymph % (Auto) 6.9L, Pitkin % (Auto) 1.0, Eos % (Auto) 0.0, Baso % (Auto) 0.0, Absolute Neuts (auto)3.6, Absolute Lymphs (auto) 0.27 L, Nucleated RBC % 0, Sodium 129 L, Potassium 5.4 H, Chloride 88 L, Carbon Dioxide 15.8 L, Anion Gap 26 H, BUN 72 H, Creatinine 8.71 H*, Estim Creat Clear Calc 7.83 L*, Est GFR (MDRD) Non-Af 5 L, BUN/Creatinine Ratio 8.3 L, Glucose 291 H, Calcium 9.5, Phosphorus 7.3 H, Total Bilirubin 0.49, AST 27, ALT 14, Alkaline Phosphatase 76, Troponin T High Sens 129 H* D, Total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 <Electronically signed by Cristi Meneses PT Cert. T, OCS> 10/11/24 1258 CC: REHANA Marcum; Dr. Ignacio Cheatham MD ~ JLA Signed [facility] Work Phone: [phone] Discharge summary Author Jim Shah [facility] Note Date/Time October 10, 2024 9: 50pm [facility] Medical Records Department [address] [place] [address] Emergency Department Summary 10/10/24 MR#: [id number] Acct: [id number] Name: Margareth GONZALEZ ARNOLD Rep #:[id number] : 1965 59 From: Jim anguianoett DO PCP: Dr. Ignacio Cheatham MD Status:ADM I N Location: [place] [address] HPI History of Present Illness Chief Complaint: Shortness of Breath Narrative Narrative: Chief complaint and HPI: Shortness of breath. 59-year-old female with past medical history of COPD, HTN, HLD, CKD on dialysis Thursday, , Thursday, DM2, fibromyalgia, IBS presents for evaluation of shortness of breath. Patient states over the weekend she had multiple episodes of diarrhea with abdominal cramping. She thinks it was secondary to her IBS. Currently not endorsing any abdominal pain. She states she has had some chest congestion but no cough or URI symptoms. States today developed shortness of breath that progressively worsened. States she follows with a new manufacturing process engineer Dr. Ferreira with [facility]. Takes albuterol as needed but does not have nebulizers or any maintenance inhaler. When EMS arrived, patient was found to be 70% on room air. They gave a DuoNeb. Patient states she missed dialysis on Thursday secondary tonot feeling well. Review of systems: See HPI Medications: As listed on the chart Allergies: As listed on the chart PFSH: Per chart Vital signs: As listed on the chart. Reviewed. Physical exam: Gen: A&O x3, NAD Head: Normocephalic, atraumatic Eyes: No sclera icterus, conjunctiva clear ENT: Moist mucous membranes Neck: Trachea midline, No JVD CV: Tachycardic, regular rhythm, no murmurs, no peripheral edema Resp: Lungs diminished in the bilateral bases, diffuse expiratory wheezing, on nasal cannula GI: Abd soft, non-distended, non-tender, no r/r/g Musc: Full ROM, no deformity Skin: Warm, dry Neuro: Alert, oriented, grossly intact, sensation intact Psych: Cooperative, appropriate mood and affect [facility] Medical History Fracture of fibula, right, closed [...] 5,000 unit PO DAILY CORNELL PPLEMENT 10/03/13 10/09/24 History mcg (1,000 unit) capsule (Vitamin D3) omeprazole 20 mg capsule,delayed 20 mg PO DAILY 10/09/24 History release melatonin 5 mg capsule 10 mg PO QHS sleep 05/27/16 10/09/24 History atorvastatin 40 mg tablet 40 mg PO QHS CHOLESTEROL 02/2110/09/24 History sevelamer carbonate 800 mg tablet 1,600 mg PO TID 08/2210/10/24 History hydroxyzine HCl 50 mg tablet 50 mg PO Q6H PRN itching 06/29/23 10/09/24 History acetaminophen 325 mg capsule 650 mg PO Q6H PRN pain Unknown History (Tylenol) ondansetron HCl 4 mg tablet 4 mg PO Q8H PRN PRN nausea and 07/02/23 10/10/24 History vomiting clopidogrel 75 mg tablet 75 mg PO DAILY 09/06/2409/30 History dulaglutide 0.75 mg/0.5 mL 0.75 mg subcut QWEEK 10/09/24 History subcutaneous pen injector (Trulicity) duloxetine 30 mg capsule,delayed 30 mg PO DAILY 10/09/24 History release nifedipine 90 mg tablet,extended 270 mg PO DAILY 09/0610/09/24 History release pregabalin 25 mg capsule 25 mg PO QHS 09/06/24 History albuterol sulfate 90 mcg/actuation 2 puff inhalation Q 4H PRN PRN 10/10/24 10/09/24 History aerosol inhaler shortness of breath or wheez ing calcitriol 0.25 mcg capsule 1.5 mcg PO TUTHSA 10/10/24 10/08/24 History sucroferric oxyhydroxide 500 mg 500 mg PO TID 10/10/24 10/10/24 History chewable tablet (Velphoro) torsemide 100 mg tablet 100 mg PO DAILY 10/10/2412/24 History Allergy/AdvReac Type Severity Reaction Status Date / Time balsam juan Allergy Unknown UNKNOWN Verified 09/06/24 18:45 [...] never substance use type: does not use EXAM Physical Exam Const Vital Signs: 10/10/24 16:03 10/10/24 16:06 10/10/24 16:06 Temperature 97.9 F 97.9 F Temperature Source Oral Oral Pulse Rate 112 H 113 H Respiratory Rate 24 H 24 H Respiratory Effort Normal Short of Breath Respiratory Depth Shallow Respiratory Pattern Normal Blood Pressure 181/91 H 181/91 H Blood Pressure Mean 121 121 Pulse Ox 95 96 Oxygen Delivery Method Nasal Cannula Nasal Cannula Nasal Cannula Oxygen Flow Rate (L/min) 6 6 6 10/10/24 16:15 10/10/24 16:26 10/10/24 17:06 Temperature 98.4 F Temperature Source Oral Pulse Rate 111 H 115 H Respiratory Rate 20 H 23 H Respiratory Effort Respiratory Depth Respiratory Pattern Blood Pressure 155/87 H Blood Pressure Mean 109 Pulse Ox 100 Oxygen Delivery Method Nasal Cannula Nasal Cannula Oxygen Flow Rate (L/min) 6 2 10/10/24 18:00 10/10/24 19:19 Temperature 97.6 F L 98.0 F Temperature Source Temporal Oral Pulse Rate 116 H 114 H Respiratory Rate 21 H 19 H Respiratory Effort Respiratory Depth Respiratory Pattern Blood Pressure 155/87 H 168/81 H Blood Pressure Mean 109 110 Pulse Ox 95 98 Oxygen Delivery Method Room Air Room Air Oxygen Flow Rate (L/min) MDM MDM MDM Narrative Medical decision making narrative: 59-year-old female with past medical history of COPD, HTN, HLD, CKD on dialysis Thursday, , Thursday, DM2, fibromyalgia, IBS presents for evaluation of shortness of breath. Patient states over the weekend she had multiple episodes of diarrhea with abdominal cramping. She missed dialysis. Developed shortness of breath today. Hypoxic on room air and given DuoNeb prior to arrival. Differential diagnosis includes but is not limited to COPD exacerbation, pneumonia, viral illness, fluid overload, electrolyte abnormality, dehydration, hypercapnia, UTI. 500 cc NS bolus ordered with Solu-Medrol and DuoNeb. Although patient endorses diarrhea and abdominal cramping earlier this week, currently denying this at this time. Her abdomen is nontender to palpation therefore I do not think any imaging is needed at this time. VBG without hypercapnia or acidosis. CBC without leukocytosis. Patient has baseline anemia of 11.3. She has new thrombocytopenia of 133. Her D-dimer is elevated at 2.92. Given her hypoxia and shortness of breath cannot rule out PE. Although may be elevated secondary to being a dialysis patient. Patient is scheduled to receivedialysis tomorrow. CTA chest ordered. CMP shows no multiple electrolyte derangements as well as elevated creatinine. Patient is on dialysis. She states she does not know her baseline creatinine. On chart review in August her creatinine was 4.01. All of these derangements are likely secondary to missed dialysis and diarrhea. She is hyponatremia at 128, hyperkalemia of 6.2, anion gap of 21, BUN of 65, creatinine of 8.2. Patient makes urine therefore Lasix ordered for hyperglycemia. Patient already having diarrhea so held off on Kayexalate. Although patient has no EKG changes, did give calcium gluconate. she is hyperglycemic at 298. Magnesium level unremarkable. Lactic acid unremarkable. AST mildly elevated at 34. Troponin elevated at 97, suspect this is secondary to her kidney disease. I did cancel the BNP after ordering it as it will be elevated due to her being a dialysis patient however her lab still resulted in it. It is high. Lipase unremarkable. UA without bacteria althoughhas pyuria. CTA negative for PE. Did bilateral pleural effusions with compressive atelectasis. COPD with scattered areas of groundglass attenuation. Superimposed pneumonia cannot be excluded. Multiple enlarged mediastinal and perihilar lymph nodes, likely reactive. On reevaluation, patient only requiring2 L nasal cannula. Will treat her for possible pneumonia. She has anaphylaxisto penicillin and therefore meropenem and azithromycin given. This will also cover for her pyorrhea. She will warrant admission. She confirmed understanding of plan. I did call our dialysis center, and dialysis will be available at 7 AM in the morning. Patient discussed with the hospitalist who accepted admission. EKG: Interpreted by me/EM physician: EKG shows sinus tachycardia with nonspecific ST- T wave abnormalities. This is similar to previous EKG in August. Heart rate 113 Diagnostic: Interpreted by me/EM physician: Chest x-ray without pneumonia, pneumothorax. Patient does have vascular congestion. Impression: 1. Acute hypoxia, multifactorial 2. Volume overload with pleural effusions secondary to missed dialysis 3. COPD exacerbation 4. Possible pneumonia 5. Diarrhea with history of IBS 6. Hyponatremia 7. Hyperkalemia 8. SERGIO on CKD secondary to missed dialysis 9. Hyperglycemia known diabetic 10. Elevated troponin secondary to CKD 11. Elevated BNP secondary to CKD 12. Pyuria with possible UTI Lab Data Labs: Laboratory Results - last 24 hr 10/10/24 10/10/24 10/10/24 16:11 16:26 16:54 WBC 6.0 RBC 3.70 L Hgb 11.3 L Hct 33.4 L MCV 90.3 MCH 30.5 MCHC 33.8 RDW Std Deviation 42.9 RDW Coeff of Ben 13.0 Plt Count 143 L MPV 11.0 Immature Gran % (Auto) 0.700 Neut % (Auto) 74.7 H Lymph % (Auto) 16.1 L Pitkin % (Auto) 5.3 Eos % (Auto) 2.5 Baso % (Auto) 0.7 Absolute Neuts (auto) 4.5 Absolute Lymphs (auto) 0.97 Nucleated RBC % 0 D-Dimer Quant (PE/DVT) 2.92 H* Sodium Cancelled Potassium Cancelled Chloride Cancelled Carbon Dioxide Cancelled Anion Gap Cancelled BUN Cancelled Creatinine Cancelled Estim Creat Clear Calc Cancelled Est GFR (MDRD) Non-Af Cancelled BUN/Creatinine Ratio Cancelled Glucose Cancelled Lactic Acid < 1.0 Calcium Cancelled Magnesium Cancelled Total Bilirubin Cancelled AST Cancelled ALT Cancelled Alkaline Phosphatase Cancelled Troponin T High Sens Cancelled NT pro BNP II Total Protein Cancelled Albumin Cancelled Globulin Cancelled Albumin/Globulin Ratio Cancelled Lipase Cancelled Urine Color Straw Urine Clarity Sl. Cloudy Urine pH 6.0 Ur Specific Brule 1.010 Urine Protein 100 H Urine Glucose (UA) 1000 H Urine Ketones Negative Urine Occult Blood 150 H Urine Nitrite Negative Urine Bilirubin Negative Urine Urobilinogen Normal Ur Leukocyte Esterase 500 H Urine RBC 5-10 SEEN Urine WBC 10-25 SEEN Ur Squamous Epith Cells 0-5 SEEN Urine Bacteria 0 SEEN Urine Mucus 0 SEEN 10/10/24 17:40 WBC RBC Hgb Hct MCV MCH MCHC RDW Std Deviation RDW Coeff of Ben Plt Count MPV Immature Gran % (Auto) Neut % (Auto) Lymph % (Auto) Pitkin % (Auto) Eos % (Auto) Baso % (Auto) Absolute Neuts (auto) Absolute Lymphs (auto) Nucleated RBC % D-Dimer Quant (PE/DVT) Sodium 128 L Potassium 6.2 H* Chloride 91 L Carbon Dioxide 15.7 L Anion Gap 21 H BUN 65 H Creatinine 8.20 H* Estim Creat Clear Calc 8.46 L* Est GFR (MDRD) Non-Af 5 L BUN/Creatinine Ratio 7.9 L Glucose 298 H Lactic Acid Calcium 8.9 Magnesium 2.2 Total Bilirubin 0.50 AST 34 H ALT 9 Alkaline Phosphatase 66 Troponin T High Sens 97 H* D NT [place]NP II > 59151 H Total Protein 5.8 L Albumin 3.5 Globulin 2.3 Albumin/Globulin Ratio 1.5 Lipase 39 Urine Color Urine Clarity Urine pH Ur Specific Brule Urine Protein Urine Glucose (UA) Urine Ketones Urine Occult Blood Urine Nitrite Urine Bilirubin Urine Urobilinogen Ur Leukocyte Esterase Urine RBC Urine WBC Ur Squamous Epith Cells Urine Bacteria Urine Mucus ABG Data ABG results: ABG 10/10/24 16:35 Specimen Type LILIANA Sample Site Not entered O2 % 2.0 VBG pH 7.46 H VBG pO2 45 H VBG HCO3 27 H VBG Total CO2 28 VBG O2 Sat (Calc) 83 H VBG Base Excess 3 POC Mix VBG pCO2 Pt Tmp 37.6 L O2 Delivery Device Cannula Radiography Diagnostic Testing: Clinical Impression(s) from Imaging Studies Chest X-Ray 10/10/24 17:00 IMPRESSION: Persistent diffuse pulmonary vascular congestion and bibasilar atelectasis. Reading Location: [facility] Chest CTA 10/10/24 17:56 IMPRESSION: 1. No pulmonary embolism is identified. Some of the distal pulmonary arteries cannot be evaluated due to suboptimal opacification. 2. Bilateral pleural effusions with compressive atelectasis. COPD with scattered areas of ground-glass attenuation. Superimposed pneumonia can not be excluded. 3. Multiple enlarged mediastinal and perihilar lymph nodes, likely reactive. Reading Location: [facility] Discharge Plan Triage Chief Complaint: Shortness of Breath ED Provider: Jim Shah Dx/Rx/DC Orders Prescriptions: No Action cholecalciferol (vitamin D3) [Vitamin D3] 1,000 UNIT capsule 5,000 unit PO DAILY omeprazole 20 MG capsule 20 mg PO DAILY melatonin 5 MG capsule 10 mg PO QHS atorvastatin 40 mg tablet 40 mg PO QHS sevelamer carbonate 800 mg tablet 1,600 mg PO TID acetaminophen [Tylenol] 325 mg capsule 650 mg PO Q6H PRN (Reason: pain ) ondansetron HCl 4 mg tablet 4 mg PO Q8H PRN PRN (Reason: nausea and vomiting) hydroxyzine HCl 50 mg tablet 50 mg PO Q6H PRN (Reason: itching) nifedipine 90 mg tablet extended release 270 mg PO DAILY Patient Comments: [NO ORIGINAL SIG] clopidogrel 75 mg tablet 75 mg PO DAILY duloxetine 30 mg capsule,delayed release(DR/EC) 30 mg PO DAILY pregabalin 25 mg capsule 25 mg PO QHS Trulicity 0.75 mg/0.5 mL pen injector 0.75 mg subcut QWEEK torsemide 100 mg tablet 100 mg PO DAILY Velphoro 500 mg tablet,chewable 500 mg PO TID calcitriol 0.25 mcg capsule 1.5 mcg PO TUTHSA Rx Instructions: 1.5 mcg orally 3XW; albuterol sulfate 90 mcg/actuation HFA aerosol inhaler 2 puff INHALATION Q4H PRN PRN (Reason: shortness of breath or wheezing) Primary Care Provider: Ignacio Cheatham Referrals: Ignacio Cheatham MD [Primary Care Provider] - Print Language: Bolivian What to do if you have Problems For any increased pain, shortness of breath, bleeding, nausea or vomiting, chestpain, or any unexpected problems, contact your Primary Care Provider. Call [facility] ([phone]) or report to the closest Emergency Room. Call 911 if necessary. 10/10/242002 <Electronically signed by Jim Shah DO> Cosigner Signature (if applicable): CC: Dr. Ignacio Cheatahm MD ~ Signed ADDENDUM by Dr. Jim Shah DO on 10/10/24 at 2150 35 minutes of critical care time utilized in managing the patient. This is due to high probability of and deterioration of the patient based on the patient's condition and excludes any separately billable procedures. 10/10/24 2150<Electronically signed by Jim Shah DO> Cosigner Signature (if applicable): cc: Dr. Ignacio Cheatham MD ~* Signed [facility] Work Phone: 1(613) 350-758708-11-2025 Evaluation note* Diagnosis Onset Date Resolution Status Admit Date Abdominal pain acute September 8:31pm Acute cystitis with hematuria acute October 10, 2024 8:31pm Acute respiratory insufficiency acut e October 10, 2024 8:31pm Diarrhea acute October 10 025 8:31pm Elevated d-dimer acute September 302024 8:31pm ESRD (end stage renal diseas e) on dialysis acute October 10 8:31pm History of DVT (deep vein thrombosis) acute October 10 8:31pm Hyperkalemia acute October 10, 2024 8:31pm Overweight (BMI 25.0-29.9) acute October 10, 2024 8:31pm Uncontrolled hypertension acute October 10, 2024 8:31pm COPD exacerbation chronic October 10, 2024 8:31pm [facility] Work Phone: 1(363) 423-548708-11-2025 Evaluation note* Diagnosis Onset Date Resolution Status Admit Date Abdominal pain acute September 8:31pm Acute cystitis with hematuria acute October 10, 2024 8:31pm Acute respiratory insufficiency acut e October 10, 2024 8:31pm Diarrhea acute October 10 025 8:31pm Elevated d-dimer acute September 302024 8:31pm ESRD (end stage renal diseas e) on dialysis acute October 10 8:31pm History of DVT (deep vein thrombosis) acute October 10 8:31pm Hyperkalemia acute October 10, 2024 8:31pm Overweight (BMI 25.0-29.9) acute October 10, 2024 8:31pm Uncontrolled hypertension acute October 10, 2024 8:31pm COPD exacerbation resolved October 10, 2024 8:31pm ESRD (end stage renal diseas e) on dialysis acute October 24 6:54pm Pulmonary edema acute October 242024 6:54pm Hypertension chronic October 24, 2024 6:54pm [facility] Work Phone: 1(913) 870-804508-11-2025 Evaluation note* Diagnosis Onset Date Resolution Status Admit Date Abdominal pain acute September 8:31pm Acute cystitis with hematuria acute October 10, 2024 8:31pm Acute respiratory insufficiency acut e October 10, 2024 8:31pm Diarrhea acute October 10, 025 8:31pm Elevated d-dimer acute September 302024 8:31pm ESRD (end stage renal diseas e) on dialysis acute October 10 8:31pm History of DVT (deep vein thrombosis) acute October 10 8:31pm Hyperkalemia acute October 10, 2024 8:31pm Overweight (BMI 25.0-29.9) acute October 10, 2024 8:31pm Uncontrolled hypertension acute October 10, 2024 8:31pm COPD exacerbation resolved October 10, 2024 8:31pm (HFpEF) heart failure with preserved ejection fraction acute 2024 6:54pm ESRD (end stage renal diseas e) on dialysis acute October 24 6:54pm Hypoxia acute October 24, 2 025 6:54pm Pulmonary edema acute October 242024 6:54pm Hypertension chronic October 24, 2024 6:54pm [facility] Work Phone: 1(764) 215-576608-11-2025 Discharge summary [facility] Medical Records Department [address] [place] [address] Emergency Department Summary 10/10/24 MR#: [id number] Acct: [id number] Name: Margareth GONZALEZ Rep #:[id number] : 1965 59 From: Jim alicea DO PCP: Dr. Ignacio Cheatham MD Status:ADM I N Location: [place] [address] HPI History of Present Illness Chief Complaint: Shortness of Breath Narrative Narrative: Chief complaint and HPI: Shortness of breath. 59-year-old female with past medical history of COPD,HTN, HLD, CKD on dialysis Thursday, , Thursday, DM2, fibromyalgia, IBS presents for evaluation of shortness of breath. Patient states over the weekend she had multiple episodes of diarrhea with abdominal cramping. She thinks it was secondary to her IBS. Currently not endorsing any abdominal pain. She states she has had some chest congestion but no cough or URI symptoms. States today developed shortness of breath that progressively worsened. States she follows with a new manufacturing process engineer with [facility]. Takes albuterol as needed but does not have nebulizers or any maintenan ce inhaler. When EMS arrived, patient was found to be 70% on room air. They gave a DuoNeb. Patient states she missed dialysis on Thursday secondary tonot feeling well. Review of systems: See HPI Medications: As listed on the chart Allergies: As listed on the chart PFSH: Per chart Vital signs: As listed on the chart. Reviewed. Physical exam: Gen: A&O x3, NAD Head: Normocephalic, atraumatic Eyes: No sclera icterus, conjunctiva clear ENT: Moist mucous membranes Neck: Trachea midline, No JVD CV: Tachycardic, regular rhythm, no murmurs, no peripheral edema Resp: Lungs diminished in the bilateral bases, diffuse expiratory wheezing, on nasal cannula GI: Abd soft, non-distended, non-tender, no r/r/g Musc: Full ROM, no deformity Skin: Warm, dry Neuro: Alert, oriented, grossly intact, sensation intact Psych: Cooperative, appropriate mood and affect [facility] Medical History Fracture of fibula, right, closed [...] 5,000 unit PO DAILY CORNELL PPLEMENT 10/03/13 10/09/24 History mcg (1,000 unit) capsule (Vitamin D3) omeprazole 20 mg capsule,delayed 20 mg PO DAILY 10/09/24 History release melatonin 5 mg capsule 10 mg PO QHS sleep 05/27/16 10/09/24 History atorvastatin 40 mg tablet 40 mg PO QHS CHOLESTEROL 02/2110/09/24 History sevelamer carbonate 800 mg tablet 1,600 mg PO TID 1208/2210/10/24 History hydroxyzine HCl 50 mg tablet 50 mg PO Q6H PRN itching 06/29/23 10/09/24 History acetaminophen 325 mg capsule 650 mg PO Q6H PRN pain Unknown History (Tylenol) ondansetron HCl 4 mg tablet 4 mg PO Q8H PRN PRN nausea and 07/02/23 10/10/24 History vomiting clopidogrel 75 mg tablet 75 mg PO DAILY 09/06/2409/30 History dulaglutide 0.75 mg/0.5 mL 0.75 mg subcut QWEEK 10/09/24 History subcutaneous pen injector (Trulicity) duloxetine 30 mg capsule,delayed 30 mg PO DAILY 10/09/24 History release nifedipine 90 mg tablet,extended 270 mg PO DAILY 09/0610/09/24 History release pregabalin 25 mg capsule 25 mg PO QHS 09/06/24 History albuterol sulfate 90 mcg/actuation 2 puff inhalation Q 4H PRN PRN 10/10/24 10/09/24 History aerosol inhaler shortness of breath or wheez ing calcitriol 0.25 mcg capsule 1.5 mcg PO TUTHSA 10/10/24 10/08/24 History sucroferric oxyhydroxide 500 mg 500 mg PO TID 10/10/24 10/10/24 History chewable tablet (Velphoro) torsemide 100 mg tablet 100 mg PO DAILY 10/10/2412/24 History Allergy/AdvReac Type Severity Reaction Status Date / Time renetta juan Allergy Unknown UNKNOWN Verified 09/06/24 18:45 [...] never substance use type: does not use EXAM Physical Exam Const Vital Signs: 10/10/24 16:03 10/10/24 16:06 10/10/24 16:06 Temperature 97.9 F 97.9 F Temperature Source Oral Oral Pulse Rate 112 H 113 H Respiratory Rate 24 H 24 H Respiratory Effort Normal Short of Breath Respiratory Depth Shallow Respiratory Pattern Normal Blood Pressure 181/91 H 181/91 H Blood Pressure Mean 121 121 Pulse Ox 95 96 Oxygen Delivery Method Nasal Cannula Nasal Cannula Nasal Cannula Oxygen Flow Rate (L/min) 6 6 6 10/10/24 16:15 10/10/24 16:26 10/10/24 17:06 Temperature 98.4 F Temperature Source Oral Pulse Rate 111 H 115 H Respiratory Rate 20 H 23 H Respiratory Effort Respiratory Depth Respiratory Pattern Blood Pressure 155/87 H Blood Pressure Mean 109 Pulse Ox 100 Oxygen Delivery Method Nasal Cannula Nasal Cannula Oxygen Flow Rate (L/min) 6 2 10/10/24 18:00 10/10/24 19:19 Temperature 97.6 F L 98.0 F Temperature Source Temporal Oral Pulse Rate 116 H 114 H Respiratory Rate 21 H 19 H Respiratory Effort Respiratory Depth Respiratory Pattern Blood Pressure 155/87 H 168/81 H Blood Pressure Mean 109 110 Pulse Ox 95 98 Oxygen Delivery Method Room Air Room Air Oxygen Flow Rate (L/min) MDM MDM MDM Narrative Medical decision making narrative: 59-year-old female with past medical history of COPD, HTN, HLD, CKD on dialysis Thursday, , Thursday, DM2, fibromyalgia, IBS presents for evaluation of shortness of breath. Patient states overthe weekend she had multiple episodes of diarrhea with abdominal cramping. She missed dialysis. Developed shortness of breath today. Hypoxic on room air and given DuoNeb prior to arrival. Differential diagnosis includes but is not limited to COPD exacerbation, pneumonia, viral illness, fluid overload, electrolyte abnormality, dehydration, hypercapnia, UTI. 500 cc NS bolus ordered with Solu-Medroland DuoNeb. Although patient endorses diarrhea and abdominal cramping earlier this week, currently d enying this at this time. Her abdomen is nontender to palpation therefore I do not think any imaging is needed at this time. VBG without hypercapnia or acidosis. CBC without leukocytosis. Patient hasbaseline anemia of 11.3. She has new thrombocytopenia of 133. Her D-dimer is elevated at 2.92. Given her hypoxia and shortness of breath cannot rule out PE. Although may be elevated secondary to being a dialysis patient. Patient is scheduled to receivedialysis tomorrow. CTA chest ordered. CMP showsno multiple electrolyte derangements as well as elevated creatinine. Patient is on dialysis. She states she does not know her baseline creatinine. On chart review in August her creatinine was 4.01. Allof these derangements are likely secondary to missed dialysis and diarrhea. She is hyponatremia at 128, hyperkalemia of 6.2, anion gap of 21, BUN of 65, creatinine of 8.2. Patient makes urine therefore Lasix ordered for hyperglycemia. Patient already having diarrhea so held off on Kayexalate. Although patient has no EKG changes, did give calcium gluconate. she is hyperglycemic at 298. Magnesium le wallace unremarkable. Lactic acid unremarkable. AST mildly elevated at 34. Troponin elevated at 97, suspect this is secondary to her kidney disease. I did cancel the BNP after ordering it as it will be elevated due to her being a dialysis patient however her lab still resulted in it. It is high. Lipaseunremarkable. UA without bacteria althoughhas pyuria. CTA negative for PE. Did bilateral pleural effusions with compressive atelectasis. COPD with scattered areas of groundglass attenuation. Superimposed pneumonia cannot be excluded. Multiple enlarged mediastinal and perihilar lymph nodes, likely reactive. On reevaluation, patient only requiring2 L nasal cannula. Will treat her for possible pneumonia. She has anaphylaxisto penicillin and therefore meropenem and azithromycin given. This will also cover for her pyorrhea. She will warrant admission. She confirmed understanding of plan. I did call our dialysis center, and dialysis will be available at 7 AM in the morning. Patient discussed withthe hospitalist who accepted admission. EKG: Interpreted by me/EM physician: EKG shows sinus tachycardia with nonspecific ST- T wave abnormalities. This is similar to previous EKG in August. Heart rate 113 Diagnostic: Interpreted by me/EM physician: Chest x-ray without pneumonia, pneumothorax. Patient does have vascular congestion. Impression: 1. Acute hypoxia, multifactorial 2. Volume overload with pleural effusions secondary to missed dialysis 3. COPD exacerbation 4. Possible pneumonia 5. Diarrhea with history of IBS 6. Hyponatremia 7. Hyperkalemia 8. SERGIO on CKD secondary to missed dialysis 9. Hyperglycemia known diabetic 10. Elevated troponin secondary to CKD 11. Elevated BNP secondary to CKD 12. Pyuria with possible UTI Lab Data Labs: Laboratory Results - last 24 hr 10/10/24 10/10/24 10/10/24 16:11 16:26 16:54 WBC 6.0 RBC 3.70 L Hgb 11.3 L Hct 33.4 L MCV 90.3 MCH 30.5 MCHC 33.8 RDW Std Deviation 42.9 RDW Coeff of Ben 13.0 Plt Count 143 L MPV 11.0 Immature Gran % (Auto) 0.700 Neut % (Auto) 74.7 H Lymph % (Auto) 16.1 L Pitkin % (Auto) 5.3 Eos % (Auto) 2.5 Baso % (Auto) 0.7 Absolute Neuts (auto) 4.5 Absolute Lymphs (auto) 0.97 Nucleated RBC % 0 D-Dimer Quant (PE/DVT) 2.92 H* Sodium Cancelled Potassium Cancelled Chloride Cancelled Carbon Dioxide Cancelled Anion Gap Cancelled BUN Cancelled Creatinine Cancelled Estim Creat Clear Calc Cancelled Est GFR (MDRD) Non-Af Cancelled BUN/Creatinine Ratio Cancelled Glucose Cancelled Lactic Acid < 1.0 Calcium Cancelled Magnesium Cancelled Total Bilirubin Cancelled AST Cancelled ALT Cancelled Alkaline Phosphatase Cancelled Troponin T High Sens Cancelled NT pro BNP II Total Protein Cancelled Albumin Cancelled Globulin Cancelled Albumin/Globulin Ratio Cancelled Lipase Cancelled Urine Color Straw Urine Clarity Sl. Cloudy Urine pH 6.0 Ur Specific Brule 1.010 Urine Protein 100 H Urine Glucose (UA) 1000 H Urine Ketones Negative Urine Occult Blood 150 H Urine Nitrite Negative Urine Bilirubin Negative Urine Urobilinogen Normal Ur Leukocyte Esterase 500 H Urine RBC 5-10 SEEN Urine WBC 10-25 SEEN Ur Squamous Epith Cells 0-5 SEEN Urine Bacteria 0 SEEN Urine Mucus 0 SEEN 10/10/24 17:40 WBC RBC Hgb Hct MCV MCH MCHC RDW Std Deviation RDW Coeff of Ben Plt Count MPV Immature Gran % (Auto) Neut % (Auto) Lymph % (Auto) Pitkin % (Auto) Eos % (Auto) Baso % (Auto) Absolute Neuts (auto) Absolute Lymphs (auto) Nucleated RBC % D-Dimer Quant (PE/DVT) Sodium 128 L Potassium 6.2 H* Chloride 91 L Carbon Dioxide 15.7 L Anion Gap 21 H BUN 65 H Creatinine 8.20 H* Estim Creat Clear Calc 8.46 L* Est GFR (MDRD) Non-Af 5 L BUN/Creatinine Ratio 7.9 L Glucose 298 H Lactic Acid Calcium 8.9 Magnesium 2.2 Total Bilirubin 0.50 AST 34 H ALT 9 Alkaline Phosphatase 66 Troponin T High Sens 97 H* D NT pro BNP II > 10946 H Total Protein 5.8 L Albumin 3.5 Globulin 2.3 Albumin/Globulin Ratio 1.5 Lipase 39 Urine Color Urine Clarity Urine pH Ur Specific Brule Urine Protein Urine Glucose (UA) Urine Ketones Urine Occult Blood Urine Nitrite Urine Bilirubin Urine Urobilinogen Ur Leukocyte Esterase Urine RBC Urine WBC Ur Squamous Epith Cells Urine Bacteria Urine Mucus ABG Data ABG results: ABG 10/10/24 16:35 Specimen Type LILIANA Sample Site Not entered O2 % 2.0 VBG pH 7.46 H VBG pO2 45 H VBG HCO3 27 H VBG Total CO2 28 VBG O2 Sat (Calc) 83 H VBG Base Excess 3 POC Mix VBG pCO2 Pt Tmp 37.6 L O2 Delivery Device Cannula Radiography Diagnostic Testing: Clinical Impression(s) from Imaging Studies Chest X-Ray 10/10/24 17:00 IMPRESSION: Persistent diffuse pulmonary vascular congestion and bibasilar atelectasis. Reading Location: [facility] Chest CTA 10/10/24 17:56 IMPRESSION: 1. No pulmonary embolism is identified. Some of the distal pulmonary arteries cannot be evaluated due to suboptimal opacification. 2. Bilateral pleural effusions with compressive atelectasis. COPD with scattered areas of ground-glass attenuation. Superimposed pneumonia can not be excluded. 3. Multiple enlarged mediastinal and perihilar lymph nodes, likely reactive. Reading Location: [facility] Discharge Plan Triage Chief Complaint: Shortness of Breath ED Provider: Jim Shah Dx/Rx/DC Orders Prescriptions: No Action cholecalciferol (vitamin D3) [Vitamin D3] 1,000 UNIT capsule 5,000 unit PO DAILY omeprazole 20 MG capsule 20 mg PO DAILY melatonin 5 MG capsule 10 mg PO QHS atorvastatin 40 mg tablet 40 mg PO QHS sevelamer carbonate 800 mg tablet 1,600 mg PO TID acetaminophen [Tylenol] 325 mg capsule 650 mg PO Q6H PRN (Reason: pain ) ondansetron HCl 4 mg tablet 4 mg PO Q8H PRN PRN (Reason: nausea and vomiting) hydroxyzine HCl 50 mg tablet 50 mg PO Q6H PRN (Reason: itching) nifedipine 90 mg tablet extended release 270 mg PO DAILY Patient Comments: [NO ORIGINAL SIG] clopidogrel 75 mg tablet 75 mg PO DAILY duloxetine 30 mg capsule,delayed release(DR/EC) 30 mg PO DAILY pregabalin 25 mg capsule 25 mg PO QHS Trulicity 0.75 mg/0.5 mL pen injector 0.75 mg subcut QWEEK torsemide 100 mg tablet 100 mg PO DAILY Velphoro 500 mg tablet,chewable 500 mg PO TID calcitriol 0.25 mcg capsule 1.5 mcg PO TUTHSA Rx Instructions: 1.5 mcg orally 3XW; albuterol sulfate 90 mcg/actuation HFA aerosol inhaler 2 puff INHALATION Q4H PRN PRN (Reason: shortness of breath or wheezing) Primary Care Provider: Ignacio Cheatham Referrals: Ignacio Cheatham MD [Primary Care Provider] - Print Language: Bolivian What to do if you have Problems For any increased pain, shortness of breath, bleeding, nausea or vomiting, chestpain, or any unexpected problems, contact your Primary Care Provider. Call [facility] ([phone]) or report tothe closest Emergency Room. Call 911 if necessary. 10/10/242002 Cosigner Signature (if applicable): CC: Dr. Ignacio Cheatham MD ~ Signed ADDENDUM by Dr. Jim Shah DO on 10/10/24 at 2150 35 minutes of critical care time utilized in managing the patient. This is due to high probability of and deterioration of the patient based on the patient's condition and excludes any separately billable procedures. 10/10/24 2150 Cosigner Signature (if applicable): cc: Dr. Ignacio Cheatham MD ~* Signed [facility]08-11-2025 Radiology Diagnostic study note [facility] Imaging Services [address] [place], [place] [address] CTA Chest W/WO Contrast MR#: [id number] Acct: [id number] Name: Margareth GONZALEZ ARNOLD Rep #: [id number] : 1965 F 59 From: Gladis Kim MD PCP: Dr. Ignacio Cheatham MD Status: REG E R Study:CTA Chest W/WO Contrast Date of Exam: 10/10/24 Exam# [id number] Ordering Dr: Jim Mendes DO EXAM: CT Angiography Chest Without and With Intravenous Contrast CLINICAL INDICATION: PE TECHNIQUE: Axial computed tomographic angiography images of the chest without and with intravenous contrast. This CT exam was performed using one or more of the following dose reduction techniques: automated exposure control,adjustment of the mA and/or kV according to patient size, and/or use of iterative reconstruction technique. MIP reconstructed images were created and reviewed. COMPARISON: No relevant prior studies available. FINDINGS: LIMITATIONS: Suboptimal opacification of the pulmonary arteries. PULMONARY ARTERIES: No pulmonary embolism is identified. Some of the distal pulmonary arteries cannot be evaluated due to suboptimal opacification. AORTA: No acute findings. No thoracic aortic aneurysm. LUNGS AND PLEURAL SPACES: Bilateral pleural effusions with compressive atelectasis. COPD with scattered areas of ground-glass attenuation. Superimposed pneumonia can not be excluded. No mass. HEART: Unremarkable. No cardiomegaly. No significant pericardial effusion. No evidence of RV dysfunction. MEDIASTINUM: Multiple enlarged mediastinal and perihilar lymph nodes, likely reactive. BONES/JOINTS: No acute fracture. No dislocation. SOFT TISSUES: Unremarkable. LYMPH NODES: See above. CT/CTA Chest W/WO Contrast IMPRESSION: 1. No pulmonary embolism is identified. Some of the distal pulmonary arteries cannot be evaluated due to suboptimal opacification. 2. Bilateral pleural effusions with compressive atelectasis. COPD with scattered areas of ground-glass attenuation. Superimposed pneumonia can not be excluded. 3. Multiple enlarged mediastinal and perihilar lymph nodes, likely reactive. Reading Location: [facility] CC: Dr. Jim Shah DO; Dr. Ignacio Cheatham MD ~ Seafood Clerk: Signed [facility]08-11-2025 Radiology Diagnostic study note [facility] Imaging Services [address] [place], [place] [id number] Chest PA and Lateral MR#: [id number] Acct: [id number] Name: Margareth GONZALEZ Rep #: [id number] : 1965 F 59 From: Mario Dejesus MD PCP: Dr. Ignacio Cheatham MD Status: REG E R Study:Chest PA and Lateral Date of Exam: 10/10/24 Exam# [id number] Ordering Dr: Jim Mendes DO PROCEDURE: CHEST PA AND LATERAL 10/10/2024 REASON FOR EXAM: SHORTNESS OF BREATH TECHNIQUE: CHEST PA AND LATERAL COMPARISON: 09/07/2019 FINDINGS: Hardware: None. Heart: The heart size is normal. Mediastinum: The mediastinal contour is stable. Lungs: Persistent diffuse pulmonary vascular congestion. Bibasilar atelectasis. No definite pneumothorax or sizable pleural effusion. Bones: The bones are unremarkable. RAD/Chest PA and Lateral IMPRESSION: Persistent diffuse pulmonary vascular congestion and bibasilar atelectasis. Reading Location: [facility] CC: Dr. Jim Shah DO; Dr. Ignacio Cheatham MD ~ Seafood Clerk: Signed [facility]07-24-2025 Telephone encounter Note* Telephone Encounter - Diana Brand RN - 09/22/2024 8:39 AM EDT Patient returns call from dialysis center phone and notified that lyrica has been approved with verbalized understanding. Patient missed last OV with [facility] as she thought it was this coming week. Will call back to schedule as she is currently at dialysis and it is not convenient. Diana Brand RN [facility]07-24-2025 Miscellaneous Notes* Telephone Encounter - Diana Brand RN - 09/22/2024 8:39 AM EDT Patient returns call from dialysis center phone and notified that lyrica has been approved with verbalized understanding. Patient missed last OV with [facility] as she thought it was this coming week. Will call back to schedule as she is currently at dialysis and it is not convenient. Diana Brand RN * Telephone Encounter - Nataly Burns LPN - 09/20/2024 4:35 PM EDT Tried to complete through Cover My Meds. Did not recognized Pt. Called [employer] and did PA over the phone. PA Authorization # [id number] good for 03/02/2024 to 03/01/2025. Called Pt earlier to [employer] phone out of service. Did speak with EC and they will havePt call back. Please notifie Pt PA was approved. Nataly Burns LPN * Telephone Encounter - Esperanza Post - 09/19/2024 1:42 PM EDT SLEEPPAREQUEST A PA has been received via fax. Requested by: Joshua Callback #: Medication: Pregabalin Dosage: 25 mg Soriano: [id number] documented in [facility] Telephone encounter Note * Telephone Encounter - Nataly Burns LPN - 09/20/2024 4:35 PM EDT Tried to complete through Cover My Meds. Did not recognized Pt. Called [employer] and did PA over the phone. PA Authorization # [id number] good for 03/02/2024 to 03/01/2025. Called Pt earlier to [employer] phone out of service. Did speak with EC and they will havePt call back. Please notifie Pt PA was approved. Nataly Burns LPN [facility]07-21-2025 Telephone encounter Note* Telephone Encounter - Esperanza Post - 09/19/2024 1:42 PM EDT SLEEPPAREQUEST A PA has been received via fax. Requested by: Joshua Callback #: Medication: Pregabalin Dosage: 25 mg Soriano: [id number] [address]14-2025 Telephone encounter Note* Telephone Encounter - Alondra Chung APRN.CNP - 09/12/2024 4:29 PM EDT Rx refilled Alondra Chung APRN.CNP PDMP website checked and validated. All prescriptions have been APPROPRIATELY filled. No suspiciousactivity was identified. 09/12/2024 by Alondra Chung APRN.CNP [facility]07-14-2025 Miscellaneous Notes* Telephone Encounter - Alondra Chung APRN.CNP - 09/12/2024 4:29 PM EDT Rx refilled Alondra Chung APRN.CNP PDMP website checked and validated. All prescriptions have been APPROPRIATELY filled. No suspiciousactivity was identified. 09/12/2024 by Alondra Chung APRN.CNP * Telephone Encounter - Nataly Burns LPN - 09/12/2024 12:47 PM EDT Prescription Refill Information The patient has been [...] 12, 2024 12:47 PM documented in this encounterOhio[facility]-2025 History of Present illness Narrative* Liz Ferreira MD - 09/12/2024 1:30 PM EDT Images from the original note were not included. . Respiratory [place] Note Patient name: Margareth Gonzalez PCP: Ignacio Cheatham MD Referring Physician: Kristy Mracum CNP Recording using ambient [employer]ment[employer] software for draft documentation of the visit was discussed with the patient/authorized education courses sales representative; all questions welcomed and answered. Patient/authorized education courses sales representative agreed to proceed CC: lung nodules HPI: Margareth Gonzalez 59 year old female former remote [id number] smoker quitting in 1989 with PMH significant [...] She was just seen in ED at [facility] for sob and chest pain. CTA chest obtained that was negative for PE but pertinent for pulmonary edema, bilateral effusions. Review of films shows that newRUL nodule has decreased in size but she [...] DATE OF EXAM: Jul 27 2024 2:44PM [facility] 0541 - CT CHEST WO IVCON / [...] seen within the chest. Chest CT 04/2023: [facility] Imaging Services [address] [place] [address] CTA Chest W/WO Contrast MR#: [id number] Acct: [id number] Name: Margareth GONZALEZ [facility] Rep #: [id number] : 1965 F 59 From: Frank Tabor [...] Chronic kidney disease Contraceptive management Depression Diabetes ([facility]) Diarrhea DVT, lower extremity ([facility]) 08/2014 Right leg (6) Esophagitis ESRD (end stage renal disease) ([facility]) 07/03/2022 Facial fracture due to fall ([facility]) Fatigue Fibromyalgia Fracture Fracture of shaft [...] needed for nausea/vomiting. CPAP/BIPAP/OTHER APAP 5-20 cmH2O [facility] Blood-Glucose Meter (ONETOUCH VERIO FLEX [...] Take 5 mg by mouth. As needed. Tamidtll-Mc-Ivv-Fe-FA ( VITAMIN) ORAL Tab Take 1 tablet [...] recent episode of pulmonary edema, may need moreaggressive fluid removal I spent a total of 55 minutes on the date of the service which included preparing to see the patient, glnr-wj-afnt patient care, completing clinical documentation, obtaining and/or reviewing separately obtained history, performing a medically appropriate examination, ordering medications, tests, or procedures, and independently interpreting results (not separately reported). Liz Ferreira MD [facility] [place] documented in this encounterOhiohealth Southeastern Medical Center07-14-2025 NoteHNO ID: [id number] Author: LIZ FERREIRA MD Service: ? Author Type: Physician Type: Progress Notes Filed: 09/12/2024 14:25 Note Text: . [facility] [place] Note Patient name: Margareth Gonzalez PCP: Ignacio Cheatham MD Referring Physician: Kristy Marcum CNP Recording using [employer] software for draft documentation of the visit was discussed with the patient/authorized education courses sales representative; all questions welcomed and answered. Patient/authorized education courses sales representative agreed to proceed CC: lung nodules HPI: Margareth Gonzalez 59 year old female former remote [id number] smoker quitting in 1989 with PMH significant [...] She was just seen in ED at [facility] for sob and chest pain. CTA [...] DATE OF EXAM: Jul 27 2024 2:44PM [facility] 0541 - CT CHEST WO IVCON / [...] seen within the chest. Chest CT 04/2023: [facility] Imaging Services [address] [place], [place] [address] CTA Chest W/WO Contrast MR#: [id number] Acct: [id number] Name: Margareth GONZALEZ Rep #: [id number] : 1965 F 59 From: Frank Tabor MD PCP: Dr. Ignacio Cheatham MD Status: [facility] ER Study: CTA Chest W/WO Contrast Date [...] Chronic kidney disease Contraceptive management Depression Diabetes ([facility]) Diarrhea DVT, lower extremity ([facility]) 08/2014 Right leg (6) Esophagitis ESRD (end stage renal disease) ([facility]) 07/03/2022 Facial fracture due to fall ([facility]) Fatigue Fibromyalgia Fracture Fracture of shaft of fibula GERD (gastroesophageal reflux disease) HLD (hyperlipidemia) on tricor Hyperlipidemia Hypertension Hypomagnesemia Hypopotassemia IBS (irritable bowel syndrome) Insomnia Intertrigo Knee pain Morbid obesity ([facility]) 03/11/2011 Myalgia Nausea Neck pain Neuropathy [...] mellitus with ophthalmic manif (more content not included)...[facility]07-14-2025 Telephone encounter Note* Telephone Encounter - Nataly Burns LPN - 09/12/2024 12:47 PM EDT Prescription Refill Information The patient has been [...] Burns LPN September 12, 2024 12:47 PM [facility]07-09-2025 Telephone encounter Note* Telephone Encounter - Ignacio Cheatham MD - 09/07/2024 4:35 PM EDT agree [facility]07-09-2025 Miscellaneous Notes* Telephone Encounter - Ignacio Cheatham MD - 09/07/2024 4:35 PM EDT agree * Telephone Encounter - Georgina Salmon RN - 09/07/2024 4:08 PM EDT Patient calling to state she was taken to [facility] ER yesterday via squad due to [...] 80's. Reports chest pressure, like a weight thatradiates into her back. Reports nausea and states I feel miserable. Lives alone. Denies feeling faint, lightheadedness, dizziness, and has no headache. Reports she has not been up much today, has been resting. Reports at dialysis yesterday the nurse told her that her lungs sounded diminished whenauscultated. States all she wants to do is sleep. This nurse advised ER now. Pt agreeable and declined needing further assistance or needing emergency services contacted by this nurse. Pt stated she planned to inform her sister as soon as this call ended. Georgina Salmon RN documented in this encounterOhiohealth Southeastern Medical Center07-09-2025 Telephone encounter Note * Telephone Encounter - Georgina Salmon RN - 09/07/2024 4:08 PM EDT Patient calling to state she was taken to [facility] ER yesterday via squad due to [...] 80's. Reports chest pressure, like a weight thatradiates into her back. Reports nausea and states I feel miserable. Lives alone. Denies feeling faint, lightheadedness, dizziness, and has no headache. Reports she has not been up much today, has been resting. Reports at dialysis yesterday the nurse told her that her lungs sounded diminished whenauscultated. States all she wants to do is sleep. This nurse advised ER now. Pt agreeable and declined needing further assistance or needing emergency services contacted by this nurse. Pt stated she planned to inform her sister as soon as this call ended. Georgina Salmon RN [facility]07-08-2025 Discharge summary [facility] Medical Records Department [address] [place] [address] Emergency Department Summary 09/06/24 MR#: [id number] Acct: [id number] Name: Margareth GONZALEZ Rep #:[id number] : 1965 59 From: Johnathon Robertson [...] DVT or PE; Negative for Cancer or OCP+ Smoking + >/=35 TAD Risk Factors: Negative for Marfan's Syndrome [facility] Medical History Fracture of fibula, right, closed [...] mg tablet 10 mg PO DAILY DIABETES 04/0301/18/23 History melatonin 5 mg capsule 10 mg [...] Time balsam juan Allergy Unknown UNKNOWN Verified 09/06/24 18:45 [...] extremities. Calves are nontender without edema or cords.She has a left dialysis fistula on her forearm it has a palpable pulse. Normal elementary reading specialist strength. Normal dorsi plantarflexion. Back nontender. Neurologically [...] chest pain. Exam benign. Not reproducible. Showing hercardiac workup and really does not sound cardiac chest pain. She has had a history of a DVT we willcheck a D-dimer if it is negative I [...] (Auto) 69.2 Lymph % (Auto) 18.7 L Pitkin % (Auto) 7.5 Eos % (Auto) 3.7 [...] IMPRESSION: Pulmonary findings as above. Reading Location: [place] [address] Chest CTA 09/06/24 21:31 IMPRESSION: No pulmonary embolism. Probable pulmonary edema. Moderate bilateral pleural effusions. Mild pericardial effusion. Reading Location: [place] [address] Chest x-ray, single view, portable, interpreted by myself the radiologist shows normal cardiac silhouette. Bilateral pulmonary edema. Rhythm Strip Rhythm Strip: Sinus Tach Rate: 114 Ectopy: None EKG Initial EKG: Attestation: I personally reviewed and interpreted this EKG as follows: Interpretation: No Acute Injury Pattern and Sinus Tachycardia Comments: Sinus tachycardia rate of 114 no acute signs of TN. Inverted T waves in lead V5 and [...] are feeling a lot worse. Print Language: Bolivian Disposition Disposition: Home, Self Care What to do if you have Problems For any increased pain, shortness of breath, bleeding, nausea or vomiting, chestpain, or any unexpected problems, contact your Primary Care Provider. Call [facility] ([phone]) or report tothe closest Emergency Room. Call 911 if necessary. 09/06/24 4216 Cosigner Signature (if applicable): CC: Dr. Ignacio Cheatham MD ~ Signed [facility]07-08-2025 Radiology Diagnostic study note [facility] Imaging Services [address] [place] [address] CTA Chest W/WO Contrast MR#: [id number] Acct: [id number] Name: Margareth GONZALEZ Rep #: [id number] : 1965 F 59 From: Zana Tabor MD PCP: Dr. Ignacio Cheatham MD Status: REG E R Study:CTA Chest W/WO Contrast Date of Exam: 09/06/24 Exam# [id number] Ordering Dr: Dot Robertson MD PROCEDURE: CTA [...] pleural effusions. Mild pericardial effusion. Reading Location: [id number] CC: Dr. Johnathon Robertson MD; Dr. Ignacio Cheatham MD ~ Seafood Clerk: Signed [facility]07-08-2025 Radiology Diagnostic study note [facility] Imaging Services [address] [place] [address] Chest 1 View (Portable) MR#: [id number] Acct: [id number] Name: Margareth GONZALEZ Rep #: [id number] : 1965 F 59 From: Zana Tabor MD PCP: Dr. Ignacio Cheatham MD Status: REG E R Study:Chest 1 View (Portable) Date of Exam: 09/06/24 Exam# [id number] Ordering Dr: Dot Robertson MD PROCEDURE: CHEST [...] IMPRESSION: Pulmonary findings as above. Reading Location: [id number] CC: Dr. Johnathon Robertson MD; Dr. Ignacio Cheatham MD ~ Seafood Clerk: Signed [facility]07-08-2025 Telephone encounter Note* Telephone Encounter - Triny Butterfield RN - 09/06/2024 5:56 PM EDT patient called in stating that she had Shortness of Breath and chest pain since Thursday and s/s seemto be getting worse. Patient was wanting an appt, but has been referred to the ER for evaluation due to s/s. patient agreed and verbalized understanding. [facility]07-08-2025 Miscellaneous Notes* Telephone Encounter - Triny Butterfield RN - 09/06/2024 5:56 PM EDT patient called in stating that she had Shortness of Breath and chest pain since Thursday and s/s seemto be getting worse. Patient was wanting an appt, but has been referred to the ER for evaluation due to s/s. patient agreed and verbalized understanding. documented in this encounterOhiohealth Southeastern Medical Center07-08-2025 Discharge summary Author Johnathon Robertson [facility] Note Date/Time September 06, 2024 11:26 pm [facility] Medical Records Department [address] [place] [address] Emergency Department Summary 09/06/24 MR#: [id number] Acct: [id number] Name: Margareth GONZALEZ Rep #:[id number] : 1965 59 From: Johnathon Robertson [...] TAD Risk Factors: Negative for Marfan's Syndrome [facility] Medical History Fracture of fibula, [...] mg tablet 10 mg PO DAILY DIABETES /2 09/1401/18/23 History melatonin 5 mg capsule 10 mg [...] Type Severity Reaction Status Date / Time cullen juan Allergy Unknown UNKNOWN Verified 09/06/24 18:45 [...] forearm it has a palpable pulse. Normal elementary reading specialist strength. Normal dorsi plantarflexion. Back nontender. Neurologically [...] (Auto) 69.2 Lymph % (Auto) 18.7 L Pitkin % (Auto) 7.5 Eos % (Auto) 3.7 [...] IMPRESSION: Pulmonary findings as above. Reading Location: [id number] Chest CTA 09/06/24 21:31 IMPRESSION: No pulmonary embolism. Probable pulmonary edema. Moderate bilateral pleural effusions. Mild pericardial effusion. Reading Location: [place] [address] Chest x-ray, single view, portable, interpreted by myself the radiologist shows normal cardiac silhouette. Bilateral pulmonary edema. Rhythm Strip Rhythm Strip: Sinus Tach Rate: 114 Ectopy: None EKG Initial EKG: Attestation: I personally reviewed and interpreted this EKG as follows: Interpretation: No Acute Injury Pattern and Sinus Tachycardia Comments: Sinus tachycardia rate of 114 no acute signs of TN. Inverted T waves in lead V5 and [...] calcitriol 0.25 mcg capsule 1.5 mcg PO .TuTmelisarsSat Patient Comments: 6 capsules per pt on [...] are feeling a lot worse. Print Language: Bolivian Disposition Disposition: Home, Self Care What to do if you have Problems For any increased pain, shortness of breath, bleeding, nausea or vomiting, chestpain, or any unexpected problems, contact your Primary Care Provider. Call [facility] ([phone]) or report to the closest Emergency Room. Call 911 if necessary. 09/06/242325 <Electronically signed by Johnathon Robertson MD> Cosigner Signature (if applicable): CC: Dr. Ignacio Cheatham MD ~ Signed [facility] Work Phone: 1(790) 466-930206-25-2025 Telephone encounter Note* Telephone Encounter - Chloe [...] take elevator to 1st floor surge area. [facility]06-25-[facility]25 Miscellaneous Notes* Telephone Encounter - [...] 1st floor surge area. documented in this encounterOhiohealth Southeastern Medical Center06-16-2025 Telephone encounter Note * Telephone Encounter - Ashley Fraire - 08/15/2024 1:43 PM EDT Spoke to patient to move her fistulagram to August 26 because that is when he can get transpiration. Encounter closed. [facility] Work Phone: [phone]) 247-936706-16-2025 Miscellaneous Notes* Telephone Encounter - Ashley Fraire [...] a message Please call patient to reschedule [phone] documented in this encounterOhiohealth Southeastern Medical Center06-16-2025 Telephone encounter Note * Telephone Encounter - Hongniru ZaidiAmea - 08/15/2024 11:33 AM EDT Spoke to patient to offer a new date, she will check with her transportation and call back. [facility]06-13-2025 Telephone encounter Note* Telephone Encounter - Jenni Castro RN - 08/12/2024 4:13 PM EDT Patient calling, she is scheduled for fistulagram on 08/19 however needs to change the time from 1245 to 9 am if possible Attempted to call patient but unable to leave a message Please call patient to reschedule [phone] [facility]06-11-2025 Instructions* Patient Instructions* Hever Cheema APRN.SALOONKEEPER - 08/10/2024 2:48 PM EDT ASSESSMENT/PLAN: 1. [...] pain Allyssa Vázquez NP student TEACHING PROVIDER (Physician/PA/PLISSE MACHINE OPERATOR HELPER) NOTE OF PERSONAL INVOLVEMENT IN CARE: I have personally seen and examined the patient and performed the medical decision-making components. I have reviewed the Advanced Practice Registered Nurse (PLISSE MACHINE OPERATOR HELPER) Student's documentation and verified the findings in the note as written. Any additions or changes are noted in bold/italics. Signature: Hever Cheema Date: 08/10/2024 Time: 2:48 PM documented in this encounterOhiohealth Southeastern Medical Center06-11-2025 NoteHNO ID: [id number] Author: HEVER CHEEMA APRN.SALOONKEEPER Service: ? Author Type: Nurse Practitioner Type: Progress Notes Filed: 08/10/2024 14:49 Note Text: Subjective Patient ID: Arnold is a 59 year old female who presents for No chief complaint on file.. The history is provided by the patient. No official court interpreter was used. Patient presents to clinic via [...] (6) Esophagitis ESRD (end stage renal disease) (HCC) 07/03/2022 Facial fracture due to fall (HCC) [...] time ALLERGIES Vicodin [Hydrocodone-Acetaminophen], Balsam 115, Balsam [place], Barium Sulfate, Benadryl Allergy Decongestant, Benadryl [Diphenhydramine Hcl], Codeine, Lisinopril, Mold, Nsaids (Non-Steroidal Anti-Inflammatory Drug), Penicillins, Seasonal Allergies, Tetracycline, Vanilla Extract, and Vanilla Extract Flavor MEDICATIONS CPAP/BIPAP/OTHER APAP 5-20 cmH2O [facility] Blood-Glucose Meter (ONETOUCH VERIO FLEX METER) Dispense one meter kit. E11.9 blood sugar diagnostic (ONETOUCH VERIO TEST STRIPS) test strip Checks once per day to calibrate CGM lancets (CompanyTOUCH DELICA PLUS LANCET) 33 gauge Checks once per day to calibrate CGM E11.9 Blood-Glucose Sensor (FREESTYLE FESTUS 3 PLUS SENSOR) natty CHANGE SENSOR EVERY 15 days, USE FOR CONTINUOUS GLUCOSE MONITORING. E11.9 DIALYSIS PATIENT Blood-Glucose Meter,Continuous (FREESTYLE FESTUS 3 READER) [facility] Dispense one reader kit. E11.9 DIALYSIS PATIENT [...] Two tablets by mouth (more content not included)...[facility]06-11-2025 History of Present illness Narrative* Hever Cheema, PATRICE.SALOONKEEPER - 08/10/2024 1:23 PM EDT Subjective Patient ID: Arnold is a 59 year old female who presents for No chief complaint on file.. The history is provided by the patient. No official court interpreter was used. Patient presents to clinic via [...] (6) Esophagitis ESRD (end stage renal disease) ([facility]) 07/03/2022 Facial fracture due to fall [...] time ALLERGIES Vicodin [Hydrocodone-Acetaminophen], Balsam 115, Balsam [place], Barium Sulfate, Benadryl Allergy Decongestant, Benadryl [Diphenhydramine Hcl], Codeine, Lisinopril, Mold, Nsaids (Xet-IgsjoalhvXetx-Jnyehcchlmgc Drug), Penicillins, Seasonal Allergies, Tetracycline, Vanilla Extract, and Vanilla Extract Flavor MEDICATIONS CPAP/BIPAP/OTHER APAP 5-20 cmH2O DME [facility] Blood-Glucose Meter (ONETOUCH VERIO FLEX METER) [...] Take 5,000 Units by mouth twice daily. Sibjgogo-Ja-Wly-Fe-FA ( VITAMIN) ORAL Tab Take 1 tablet [...] pain Allyssa Vázquez NP student TEACHING PROVIDER (Physician/PA/PLISSE MACHINE OPERATOR HELPER) NOTE OF PERSONAL INVOLVEMENT IN CARE: I have personally seen and examined the patient and performed the medical decision-making components. I have reviewed the Advanced Practice Registered Nurse (PLISSE MACHINE OPERATOR HELPER) Student's documentation and verified the findings in the note as written. Any additions or changes are noted in bold/italics. Signature: Hever Cheema Date: 08/10/2024 Time: 2:48 PM documented in this encounterOhiohealth [facility]heastern Medical Center06-05-2025 Telephone encounter Note * Telephone Encounter - James Mc - 08/04/2024 2:04 PM EDT No Show Documentation Margareth Gonzalez no showed for an appointment on [...] James Mc August 04, 2024 2:04 PM [facility]06-05-2025 Miscellaneous Notes* Telephone Encounter - James Sutherland - 08/04/2024 2:04 PM EDT No Show Documentation Margareth Gonzalez no showed for an appointment on [...] 04, 2024 2:04 PM documented in this encounterOhiohealth Southeastern Medical Center06-04-2025 Telephone encounter Note * Telephone Encounter - Maria Eugenia Palencia OCCA - 08/03/2024 10:29 AM EDT Netta requested duplex and notified of Dr Jackson's response via fax. Transmission complete to [phone]. [facility]06-04-2025 Miscellaneous Notes* Telephone Encounter - Maria Eugenia Palencia OCCA - 08/03/2024 10:29 AM EDT Netta requested duplex and notified of Dr Jackson's response via fax. Transmission complete to [phone]. * Telephone Encounter - Jenni Castro RN [...] and call with results documented in this encounterOhiohealth Southeastern Medical Center06-03-2025 Telephone encounter Note * Telephone Encounter - Kelly Mcmahan LPN - 08/02/2024 9:47 AM EDT Called the pharmacy and they report pt picked this rx up 07/26/24 with no copay. [facility]06-03-2025 Miscellaneous Notes* Telephone Encounter - [...] Carpenter LPN - 08/01/2024 3:25 PM EDT [facility] sends fax that Trulicity requires a prior authorization. See paper with alternatives. Patient did see endo but looks like was referred back to PCP? documented in this encounterOhiohealth Southeastern Medical Center06-03-2025 Telephone encounter Note * Telephone Encounter - Kelly Mcmahan LPN - 08/02/2024 8:35 AM EDT Trulicity was filed by Honey Frazier. We have no pharmacy benefit on file for pt. Can call the pharmacy to see if there are issues with this. If PA is needed will see if Endo is doing it. Would need to do on covermymeds. [facility]06-02-2025 Telephone encounter Note* Telephone Encounter - Ignacio Cheatham MD - 08/01/2024 4:44 PM EDT The alternatives are insulin which is not in any way related to trulicity. She has been treated effectively with a glp-1 and switching would be detrimental [facility]06-02-2025 Telephone encounter Note* Telephone Encounter - Chloe Carpenter LPN - 08/01/2024 3:25 PM EDT [facility] sends fax that Trulicity requires a prior authorization. See paper with alternatives. Patient did see endo but looks like was referred back to PCP? [facility]06-02-20[facility] Telephone encounter Note* Telephone Encounter - Diana Brand RN - 08/01/2024 9:00 AM EDT [facility] with [facility] calls to let provider know that they are out of network for C- pap orders that were received. Call placed to patient and notified. She requests orders just be sent to [facility] as she knows they are in Network. Faxed per request to [facility] at [phone]. Diana Brand RN [facility]06-02-2025 Miscellaneous Notes* Telephone Encounter - Diana Brand RN - 08/01/2024 9:00 AM EDT [facility]riber[facility] with [facility] calls to let provider know that they are out of network for C- pap orders that were received. Call placed to patient and notified. She requests orders just be sent to [facility] as she knows they are in Network. Faxed per request to [facility] at [phone]. Diana Brand RN * Telephone Encounter - Nataly Burns LPN - 08/01/2024 8:39 AM EDT Faxed CPAP new device order to [facility]. Nataly Burns LPN * Telephone Encounter - Alondra Chung APRN.CNP - 07/29/2024 4:33 PM EDT Order printed for PAP for [facility] Alondra Chung APRN.CNP * Telephone Encounter - Nataly Burns LPN - 07/29/2024 3:53 PM EDT Patient notified of results, verbalizes understanding of instructions. She would like to change DME to [facility]. Nataly Burns LPN * Telephone Encounter - Alondra Chung APRN.CNP - 07/29/2024 3:12 PM EDT No, the CT chest results don't change my CPAP order. Does she need us to use a DME other than [facility]? Alondra Chung APRN.CNP * Telephone Encounter - Arnold Bocanegra LPN - 07/29/2024 2:19 PM EDT Patient calling asking that Alondra can see her CT Chest results that Tresa Marcum PRODUCT TECHNOLOGY SCIENTIST had her getdone. Patient said she is not going to set up an appt with Pulmonary right now. She has dialysis and the nurses there check her lungs 3 times weekly, and she will have issues getting appt with all ofher dialysis days. I had went over notes from Tresa Marcum again with her and told PRODUCT TECHNOLOGY SCIENTIST wants her to see Pulmonary, she still did not want to schedule an appt. Patient said she is having problems getting her CPAP and may have to change DME providers. She wanted to know if the results of the CT would change any of her settings on her PAP device? Please advise documented in this encounterOhiohealth [facility]heastern Medical Center06-02-2025 Telephone encounter Note * Telephone Encounter - Nataly Burns LPN - 08/01/2024 8:39 AM EDT Faxed CPAP new device order to [facility]. Nataly Burns LPN [facility]2025 NoteHNO ID: [id number] Author: NATALY BRUNS LPN Service: ? Author Type: LICENSED NURSE Type: Progress Notes Filed: 07/29/2024 16:41 Note Text: [facility] Tele[facility] Note* Telephone Encounter - Alondra Chung APRN.CNP - 07/29/2024 4:33 PM EDT Order printed for PAP for [facility] Alondra Chung APRN.NOY [facility]2025 Telephone encounter Note* Telephone Encounter - Nataly Burns LPN - 07/29/2024 3:53 PM EDT Patient notified of results, verbalizes understanding of instructions. She would like to change DME to [facility]. Nataly Burns LPN [facility]2025 Telephone encounter Note* Telephone Encounter - Alondra Chung APRN.CNP - 07/29/2024 3:12 PM EDT No, the CT chest results don't change my CPAP order. Does she need us to use a DME other than [facility]? Alondra Chung APRN.NOY [facility] [facility]2025 Telephone encounter Note* Telephone Encounter - Arnold Bocanegra LPN - 07/29/2024 2:19 PM EDT Patient calling asking that Alondra can see her CT Chest results that Tresa Marcum PRODUCT TECHNOLOGY SCIENTIST had her getdone. Patient said she is not going to set up an appt with Pulmonary right now. She has dialysis and the nurses there check her lungs 3 times weekly, and she will have issues getting appt with all ofher dialysis days. I had went over notes from Tresa Marcum again with her and told PRODUCT TECHNOLOGY SCIENTIST wants her to see Pulmonary, she still did not want to schedule an appt. Patient said she is having problems getting her CPAP and may have to change DME providers. She wanted to know if the results of the CT would change any of her settings on her PAP device? Please advise [facility]2025 Telephone encounter Note* Telephone Encounter - Tresa Marcum APRN.CNP - 07/29/2024 1:52 PM EDT Pulm referral entered. Please help schedule. Tresa Marcum APRN.NOY [facility]2025 Miscellaneous Notes* Telephone Encounter - [...] proceed with pulmonology referral. documented in this encounterOhiohealth [facility]20[facility] Telephone encounter Note * Telephone Encounter - Omkar Cornejo LPN - 07/29/2024 1:42 PM EDT TC to pt, phone call was very limited d/t static on the line. Pt notified of results/provider response. Pt is agreeable to Pulm referral. [facility]2025 Telephone encounter Note* Telephone Encounter [...] would like to proceed with pulmonology referral. [facility]05-29-2025 Telephone encounter Note* Telephone Encounter [...] get fistula ultrasound and call with results [facility]05-28-2025 History of Present illness Narrative* [...] PATIENT PRESENTS WITH AN IMPLANTABLE OR ATTACHED LOAN SPECIALIST: No RADIOLOGY DEPARTMENT: CT; Exam(s) Completed: Chest PERIPHERAL IV DATA: Not applicable SIGNED BY: RT Howie(May) July 27, 2024 3:46 PM documented in this encounterOhiohealth [facility]05-28-2025 NoteHNO ID: [id number] Author: FELIX EDMONDSON RT(R) Service: ? Author Type: Autocad Detailer Type: Progress Notes Filed: 07/27/2024 15:46 Note [...] PATIENT PRESENTS WITH AN IMPLANTABLE OR ATTACHED LOAN SPECIALIST: No RADIOLOGY DEPARTMENT: CT; Exam(s) Completed: Chest PERIPHERAL IV DATA: Not applicable SIGNED BY: RT Howie(R) July 27, 2024 3:46 [facility]05-12-2025 NoteHNO ID: [id number] Author: GEGE MCCRARY OD Service: ? Author Type: MACHINE DEBURRER Type: Progress Notes Filed: 07/11/2024 16:27 Note Text: 1. 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, with long-term current use of insulin (HCC) Both eyes s/p Pars plana vitrectomy / Panretinal laser photocoagulation Posterior chamber intraocular lens Both eyes. Recommended tight BS control Educated patient to continue care with primary care doctor and/or bus and trolley inspecting dispatcher to maintain optimum levels as they are [...] Gege Mccrary, OD July 11, 2024 4:46 [facility]05-12-2025 History of Present illness Narrative* Gege Mccrary, OD - 07/11/2024 4:26 PM EDT 1. 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, with long-term current use of insulin (HCC) Both eyes s/p Pars plana vitrectomy / Panretinal laser photocoagulation Posterior chamber intraocular lens Both eyes. Recommended tight BS control Educated patient to continue care with primary care doctor and/or bus and trolley inspecting dispatcher to maintain optimum levels as they are [...] Gege Mccrary, PB July 11, 2024 4:46 PM documented in this encounterOhiohealth [facility]05-07-2025 Telephone encounter Note * Telephone Encounter - Audra Sparks MA - 07/06/2024 2:55 PM EDT Cover My Meds prior auth soriano [id number] required. Audra Sparks MA [facility]05-07-2025 Miscellaneous Notes* Telephone Encounter - Audra Sparks MA - 07/06/2024 2:55 PM EDT Cover My Meds prior auth soriano [id number] required. Audra Sparks MA documented in this encounterOhiohealth [facility] Center05-07-2025 Note* Addendum Note - Trinidad Frazier APRN.CNP - 07/06/2024 2:03 PM EDTAddended by: TRINIDAD FRAZIER on: 07/06/2024 02:03 PM Modules accepted: Orders [facility]05-07-2025 Miscellaneous Notes* Addendum Note - Trinidad Frazier APRN.CNP - 07/06/2024 2:03 PM EDTAddended by: TRINIDAD FRAZIER on: 07/06/2024 02:03 PM Modules accepted: Orders documented in this encounterOhiohealth [facility]05-07-2025 History of Present illness Narrative* [...] 141* 45 -- 67 -- -- -- 67 62 -- -- HBA1C 10.9* 9.8* < [...] Chronic kidney disease Contraceptive management Depression Diabetes ([facility]) Diarrhea DVT, lower extremity ([facility]) 08/2014 Right leg (6) Esophagitis ESRD (end stage renal disease) ([facility]) 07/03/2022 Facial fracture due to fall ([facility]) ([facility]) Fatigue Fibromyalgia Fracture Fracture of shaft of fibula GERD (gastroesophageal reflux disease) HLD (hyperlipidemia) on tricor Hyperlipidemia Hypertension Hypomagnesemia Hypopotassemia IBS (irritable bowel syndrome) Insomnia Intertrigo Knee pain Morbid obesity ([facility]) 03/11/2011 Myalgia Nausea Neck pain Neuropathy [...] Take 81 mg by mouth every morning.) Xngfwqed-Ii-Gbj-Fe-FA ( VITAMIN) ORAL Tab Take 1 tablet [...] Plan: Trinidad Frazier CNP documented in this encounterOhiohealth [facility] Center05-07-2025 NoteHNO ID: [id number] Author: TRINIDAD FRAZIER APRN.CNP Service: ? Author [...] Recent Labs 04/21/20 0859 (more content not included)...[facility]05-06-2025 Telephone encounter Note* Telephone Encounter - Nataly Burns LPN - 07/05/2024 1:27 PM EDT Pt dose not have message machine. My chart message sent. Nataly Burns LPN [facility]05-06-2025 Miscellaneous Notes* Telephone Encounter - [...] EDT Please send her PAP order to [employer]. Please let pt know you checked and [employer] takes her insurance. Alondra Chung APRN.CNP documented in this encounterOhiohealth [facility]05-06-2025 Telephone encounter Note * Telephone Encounter - Nataly Burns LPN - 07/05/2024 10:13 AM EDT Yes. [employer] dose take Pt insurance. Order has been faxed. Nataly Burns LPN [facility]05-06-2025 Telephone encounter Note* Telephone Encounter - Alondra Chung APRN.CNP - 07/05/2024 9:33 AM EDT Please send her PAP order to [employer]. Please let pt know you checked and [employer] takes her insurance. Alondra Chung APRN.CNP [facility]05-05-2025 Instructions* Patient Instructions* Alondra Chung [...] your sleep patterns and any disturbances; use Fairphone to send updates and share any concerns. A follow-up visit will be scheduled within 31 to 90 days after you start CPAP therapy to review your response to the therapy and medication adjustments. documented in this encounterOhiohealth [facility]05-05-2025 History of Present illness Narrative* Alondra Chnug APRN.CNP - 07/04/2024 2:30 PM EDT Images from the original note were not included. [facility] Sleep Disorders Center New Patient Evaluation PATIENT NAME: Margareth Gonzalez DATE OF SERVICE: July 03, 2024 Recording using [employer] software for draft documentation of the visit was discussed with the patient/authorized education courses sales representative; all questions welcomed and answered. Patient/authorized education courses sales representative agreed to proceed CONSULTING PROVIDER: Sha Myrick [id number] [facility] [address] REASON FOR CONSULT: Sha Myrick sends the [...] dialysis for 2 years, attends sessions at [facility]. - Receives iron and Mircera typically [...] Depression Diabetes (HCC) Diarrhea DVT, lower extremity ([facility]) 08/2014 Right leg (6) Esophagitis ESRD (end stage renal disease) ([facility]) 07/03/2022 Facial fracture due to fall [...] Disease, Without Long-Term Current Use of Insulin ([facility]) Iron Deficiency Anemia, Unspecified Edema Fibromyalgia Neuropathy Vitamin D Deficiency Microalbuminuria Gerd (Gastroesophageal Reflux Disease) Proliferative Diabetic Retinopathy ([facility]) Pseudophakia Cassie (Obstructive Sleep Apnea) Other and Unspecified Postsurgical Nonabsorption Type 2 Diabetes, Controlled, With Neuropathy ([facility]) Personal History of Dvt (Deep Vein Thrombosis) Family History of Ischemic Heart Disease Hypercoagulable State ([facility]) Iron Malabsorption ([facility]) 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 As needed. flash glucose scanning reader (Gripp'n TechSTYLE FESTUS 2 READER) Use to check glucose [...] Take 81 mg by mouth every morning.) Perirdad-Mj-Vnj-Fe-FA ( VITAMIN) ORAL Tab Take 1 tablet [...] hemodialysis for 2 years, receiving treatment [facility]. Regularly receives iron infusions and Mircera. Hemoglobin [...] him for Sleep Disorders patients. Alondra Chung APRN.CNP documented in this encounterOhiohealth [facility]05-05-2025 NoteHNO ID: [id number] Author: ALONDRA CHUNG APRN.CNP Service: ? Author Type: Nurse Practitioner Type: Progress Notes Filed: 07/04/2024 17:14 Note Text: [facility] Sleep Disorders Center New Patient Evaluation PATIENT NAME: Margareth Gonzalez DATE OF SERVICE: July 03, 2024 Recording using [employer] software for draft documentation of the visit was discussed with the patient/authorized education courses sales representative; all questions welcomed and answered. Patient/authorized education courses sales representative agreed to proceed CONSULTING PROVIDER: Sha yMrick [address] [facility] [address] REASON FOR CONSULT: Sha Myrick sends the [...] dialysis for 2 years, attends sessions at [facility]. - Receives iron and Mircera typically [...] - Interpretation: Mild ob (more content not included)...[facility]04-09-2025 Telephone encounter Note* Telephone Encounter - Tresa Marcum APRN.CNP - 06/08/2024 7:14 PM EDT Scripts sent. Tresa Marcum APRN.CNP [facility]04-09-2025 Miscellaneous Notes* Telephone Encounter - Tresa Marcum APRN.CNP - 06/08/2024 7:14 PM EDT Scripts sent. Tresa Marcum APRN.CNP * Telephone Encounter - Fabiola Jesus RN - 06/08/2024 12:36 PM EDT Patient calls and states that prescription needs to have diagnosis code. Please send in new prescription with diagnosis code. Fabiola Jesus RN documented in this encounterOhiohealth [facility]04-09-2025 Telephone encounter Note * Telephone Encounter - Fabiola Jesus RN - 06/08/2024 12:36 PM EDT Patient calls and states that prescription needs to have diagnosis code. Please send in new prescription with diagnosis code. Fabiola Jesus RN [facility]04-02-2025 NoteHNO ID: [id number] Author: TRESA MARCUM APRN.SALOONKEEPER Service: ? Author Type: Nurse Practitioner Type: [...] dialysis three times a week. - Sees asbestos cloth inspector every other month and CMP monthly. - [...] Depression Diabetes (HCC) Diarrhea DVT, lower extremity ([facility]) 08/2014 Right leg (6) Esophagitis ESRD (end stage renal disease) ([facility]) 07/03/2022 Facial fracture due to fall ([facility]) ([facility]) Fatigue Fibromyalgia Fracture Fracture of shaft [...] tablet Take 3 t (more content not included)...[facility]04-02-2025 History of Present illness Narrative* Tresa Marcum, PATRICE.SALOONKEEPER - 06/01/2024 4:48 PM EDT This is [...] dialysis three times a week. - Sees asbestos cloth inspector every other month and CMP monthly. - [...] (6) Esophagitis ESRD (end stage renal disease) (HCC) 07/03/2022 Facial fracture due to fall ([facility]) ([facility]) Fatigue Fibromyalgia Fracture Fracture of shaft of fibula GERD (gastroesophageal reflux disease) HLD (hyperlipidemia) on tricor Hyperlipidemia Hypertension Hypomagnesemia Hypopotassemia IBS (irritable bowel syndrome) Insomnia Intertrigo Knee pain Morbid obesity ([facility]) 03/11/2011 Myalgia Nausea Neck pain Neuropathy [...] time ALLERGIES Vicodin [Hydrocodone-Acetaminophen], Balsam 115, Balsam [place], Barium Sulfate, Benadryl Allergy Decongestant, Benadryl [Diphenhydramine Hcl], Codeine, Lisinopril, Mold, Nsaids (Say-DohwjpshzNxji-Qmnvcejmfijw Drug), Penicillins, Seasonal Allergies, Tetracycline, Vanilla Extract, [...] Take 81 mg by mouth every morning.) Qjvaonyp-Sf-Xkd-Fe-FA ( VITAMIN) ORAL Tab Take 1 tablet [...] The patient consented to the use of [employer] software for draft documentation of the visit consistent with [facility] s Notice of Privacy Practices. documented in this encounterOhiohealth [facility]04-02-2025 Instructions* Patient Instructions* Tresa Marcum APRN.SALOONKEEPER - 06/01/2024 2:22 PM EDT - Discontinue Glipizide for now; monitor blood sugar levels. - Start Trulicity at a lower dose for 4 doses, then switch to 1.5 mg as prescribed; [facility]. - Complete lab work (CBC, CMP, Magnesium, A1c, Cholesterol Panel) at dialysis center. - Schedule appointments with Endocrinology and Sleep Medicine. - Schedule hydrotherapy at [facility]; [facility] [employer]. - Schedule follow-up appointments with Pain Management and Neurology. - schedule repeat chest CT. - Next follow-up appointment in [address] Cheatham. documented in this encounterOhiohealth [facility]03-12-2025 Telephone encounter Note * Telephone Encounter - Chloe Carpenter LPN - 05/11/2024 11:17 AM EDT Faxing as requested. Attempted to contact patient but voicemail is not set up. [facility]03-12-2025 Miscellaneous Notes* Telephone Encounter - [...] would like to have it faxed to [facility] at [phone]. Fabiola Jesus RN documented in this encounterOhiohealth [facility]03-11-2025 Telephone encounter Note * Telephone Encounter - Ignacio Cheatham MD - 05/10/2024 11:48 AM EDT ok [facility]03-11-2025 Telephone encounter Note* Telephone Encounter - Fabiola Jesus RN - 05/10/2024 11:31 AM EDT Patient calling and is asking if provider can write orders for a home health aide. Patient states if provider can write this order she would like to have it faxed to [facility] at [phone]. Fabiola Jesus RN [facility]02-18-2025 NotePatient Outreach (FAMPWS) Margareth GONZALEZ ([id number]) 1965 F [place] Date Time Provider Department [...] Date Reviewed: 04/15/2024 Reviewed by: Sha Ray APRN.SALOONKEEPER - Fully Assessed Visit Diagnosis:Encounter for screening mammogram for breast cancer [Z12.31] Order(s):[facility] SCREENING Halley MARTIN [[id number]] Order #: [id number] FUTURE Prescriptions as of 05/20/2024 - hydrOXYzine [...] As needed. - flash glucose scanning reader (Gripp'n TechSTYLE FESTUS 2 READER) Use to check glucose [...] 1 tablet by mouth once daily. - Oilwixwt-Ip-Kke-Fe-FA ( VITAMIN) ORAL Tab Take 1 tablet [...] 04/19/2010 Microalbuminuria [R80.9] 04/22 (more content not included)...[facility]02-14-2025 NoteHNO ID: [id number] Author: SHA RAY APRN.SALOONKEEPER Service: ? Author Type: Nurse Practitioner Type: [...] Chronic kidney disease Contraceptive management Depression Diabetes ([facility]) Diarrhea DVT, lower extremity ([facility]) 08/2014 Right leg (6) Esophagitis ESRD (end stage renal disease) ([facility]) 07/03/2022 Facial fracture due to fall ([facility]) ([facility]) Fatigue Fibromyalgia Fracture Fracture of shaft of fibula GERD (gastroesophageal reflux disease) HLD (hyperlipidemia) on tricor Hyperlipidemia Hypertension Hypomagnesemia Hypopotassemia IBS (irritable bowel syndrome) Insomnia Intertrigo Knee pain Morbid obesity ([facility]) 03/11/2011 Myalgia Nausea Neck pain Neuropathy [...] time ALLERGIES Vicodin [Hydrocodone-Acetaminophen], Balsam 115, Balsam [place], Barium Sulfate, Benadryl Allergy Decongestant, Benadryl [Diphenhydramine [...] mouth. As needed. flash (more content not included)...[facility]02-14-2025 History of Present illness Narrative* Sha Ray APRN.SALOONKEEPER - 04/15/2024 12:38 PM EST Subjective HPI [...] Chronic kidney disease Contraceptive management Depression Diabetes ([facility]) Diarrhea DVT, lower extremity ([facility]) 08/2014 Right leg (6) Esophagitis ESRD (end stage renal disease) ([facility]) 07/03/2022 Facial fracture due to fall ([facility]) ([facility]) Fatigue Fibromyalgia Fracture Fracture of shaft of fibula GERD (gastroesophageal reflux disease) HLD (hyperlipidemia) on tricor Hyperlipidemia Hypertension Hypomagnesemia Hypopotassemia IBS (irritable bowel syndrome) Insomnia Intertrigo Knee pain Morbid obesity ([facility]) 03/11/2011 Myalgia Nausea Neck pain Neuropathy [...] time ALLERGIES Vicodin [Hydrocodone-Acetaminophen], Balsam 115, Balsam [place], Barium Sulfate, Benadryl Allergy Decongestant, Benadryl [Diphenhydramine Hcl], Codeine, Lisinopril, Mold, Nsaids (Vyv-ZtrletnknSzgg-Daurwtfudpvn Drug), Penicillins, Seasonal Allergies, Tetracycline, Vanilla Extract, [...] Take 5 mg by mouth. As needed. Funzio glucose scanning reader (Awareness CardYLE FESTUS 2 READER) Use to check glucose [...] Take 81 mg by mouth every morning.) Yzbbzetm-Ki-Ynq-Fe-FA ( VITAMIN) ORAL Tab Take 1 tablet [...] of care. This note was generated using [email or web address] software. It may contain errors in wording, punctuation, or spelling. Sha Ray APRN.SALOONKEEPER documented in this encounterOhiohealth [facility] Center02-07-2025 Telephone encounter Note * Telephone Encounter - Efra Box MA - 04/08/2024 10:19 AM EST Phone number has calling restrictions that prevents the completion of call.Closing encounter Efra Box MA April 08, 2024 10:20 AM [facility]02-07-2025 Miscellaneous Notes* Telephone Encounter - [...] with her kidney issues. Fabiola Jesus RN documented in this encounterCleveland [id number] Telephone encounter Note * Telephone Encounter - Anat Lopez APRN.CNP - 04/06/2024 11:45 AM EST Actionable Finding Follow up Patient Name: Margareth Gonzalez eMRN: [id number] : 1965 Patient Preferred PCP: Ignacio Cheatham MD 07/01/2024 in [facility] with IGNACIO CHEATHAM - 6 month [...] nodules Ordering provider: Dr. Ignacio Cheatham MD [phone] Outreach attempts for Actionable Finding: MYC user active [x] SHEILA outreach [email or web address] sent 04/06/2024 Outcome: Added to ISN April 2024 last Per our protocol, this Actionable Finding is Closed based on the Final Criterion : Patient completed imaging that qualifies closure of the actionable finding Scheduled-07/27/2024 Anat Lopez APRN.CNP Actionable Findings [facility] [place] Office: [phone] [facility] Work Phone: 1(800) 626-566802-05-2025 Miscellaneous Notes* Telephone Encounter - Anat Lopez APRN.CNP - 04/06/2024 11:45 AM EST Actionable Finding Follow up Patient Name: Margareth Gonzalez eMRN: [id number] : 1965 Patient Preferred PCP: Ignacio Cheatham MD 07/01/2024 in [facility] with IGNACIO CHEATHAM - 6 month [...] nodules Ordering provider: Dr. Ignacio Cheatham MD [phone] Outreach attempts for Actionable Finding: MYC user active [x] SHEILA outreach [employer] sent 04/06/2024 Outcome: Added to ISN April 2024 last Per our protocol, this Actionable Finding is Closed based on the Final Criterion : Patient completed imaging that qualifies closure of the actionable finding Scheduled-07/27/2024 Anat Lopez APRN.NOY Actionable Findings [facility] [place] Office: [phone] documented in this encounterOhiohealth [facility] Center01-29-2025 Telephone encounter Note * Telephone Encounter - Kiki Colin MA - 03/30/2024 1:22 PM EST Left message for patient to contact office. Kiki Colin MA [facility]01-29-2025 Telephone encounter Note* Telephone Encounter - Ignacio Cheatham MD - 03/30/2024 11:17 AM EST It was previously sent in. Does she need new script? [facility]01-29-2025 Telephone encounter Note* Telephone Encounter - Fabiola Jesus RN - 03/30/2024 11:01 AM EST Patient calls and states that she had talked to Dr. Hill regarding medication. Patient states that Dr. Hill told her that Cymbalta 30 mg would be ok for her to take with her kidney issues. Fabiola Jesus RN [facility]01-27-2025 Telephone encounter Note* Telephone Encounter - June Heath MA - 03/28/2024 2:45 PM EST 03/28-Attempted to contact Elenita at [facility]. Recording states out of office until 04/04. Left detailed message on identified VM advising to refax form to provider office. June Heath MA [facility]01-27-2025 Miscellaneous Notes* Telephone Encounter - [...] provided. For any questions, Call Elenita at [phone] Georgina Salmon, RN documented in this encounterOhiohealth [facility] Center01-27-2025 NoteHNO ID: [id number] Author: ?, ?, ? Service: ? Author Type: ? Type: Progress Notes Filed: 03/28/2024 11:34 Note Text: POPULATION HEALTH NAVIGATION OUTREACH Action/[facility] Support: Called pt to schedule an appt in Pain Management. Lvm for pt to call [phone] for scheduling. Reason for Outreach Care Gap/HCC or Scheduling Wellness Visits Care Gaps due: N/A Patient Contacted: Spoke to patient/parent/or legal guardian Patient identified by name and : No Navigation Signature: Krissy Paulino March 28, 2024 11:34 [facility]01-27-2025 History of Present illness Narrative* Krissy Paulino - 03/28/2024 11:33 AM EST POPULATION HEALTH NAVIGATION OUTREACH Action/[facility] Support: Called pt to schedule an appt in Pain Management. Lvm for pt to call [phone] for scheduling. Reason for Outreach Care Gap/HCC or Scheduling Wellness Visits Care Gaps due: N/A Patient Contacted: Spoke to patient/parent/or legal guardian Patient identified by name and : No Navigation Signature: Krissy Paulino March 28, 2024 11:34 AM documented in this encounterOhiohealth [facility] Center01-27-2025 NotePatient Outreach (NETNAV) Margareth GONZALEZ ([id number]) 1965 F [place] Date Time Provider Department 03/28/24 NO PCP NETNAV During your visit today, we recorded the following information about you: Krissy Paulino 03/28/2024 11:34 AM Signed POPULATION HEALTH NAVIGATION OUTREACH Action/[facility] Support: Called pt to schedule an appt in Pain Management. Lvm for pt to call [phone] for scheduling. Reason for Outreach Care Gap/HCC [...] 1 tablet by mouth once daily. - Juelkgnw-Yo-Hzn-Fe-FA ( VITAMIN) ORAL Tab Take 1 tablet [...] Fibromyalgia [M79.7] 09/24/2009 Neuropa (more content not included)...[facility]01-24-2025 History of Present illness Narrative* Ignacio Cheatham MD - 03/25/2024 11:00 AM EST Patient presents with: Hospital F/U HPI: Patient presents today for office visit for HOSPITAL/ER FOLLOW UP: Reason for visit: concerns of TIA. Left hand numbness, some slurred speech, and facial droop duringdialysis. Symptoms resolved upon arrival to ER. Admitted for observation. Which facility: [facility] Date of visit: 03/17/24-03/18/24 Diagnosis: numbness [...] neurology. She would prefer to see a [facility] neurologist. Is on a statin [...] Take 81 mg by mouth every morning.) Dviyokkz-Qv-Mcy-Fe-FA ( VITAMIN) ORAL Tab Take 1 tablet by mouth once daily. No current facility-administered medications for this visit. ALLERGIES: ALLERGIES Allergen Reactions Vicodin [Hydrocodon* Vomiting Balsam 115 Balsam [place] Unknown Barium Sulfate Unknown Benadryl Allergy De* [...] Chronic kidney disease Contraceptive management Depression Diabetes ([facility]) Diarrhea DVT, lower extremity ([facility]) 08/2014 Right leg (6) Esophagitis ESRD (end stage renal disease) ([facility]) 07/03/2022 Facial fracture due to fall ([facility]) ([facility]) Fatigue Fibromyalgia Fracture Fracture of shaft of fibula GERD (gastroesophageal reflux disease) HLD (hyperlipidemia) on tricor Hyperlipidemia Hypertension Hypomagnesemia Hypopotassemia IBS (irritable bowel syndrome) Insomnia Intertrigo Knee pain Morbid obesity ([facility]) 03/11/2011 Myalgia Nausea Neck pain Neuropathy [...] 2. Type 2 diabetes, controlled, with neuropathy ([facility]) - ICD9: 250.60, 357.2, ICD10: E11.40 - Controlled - Continue current medications 3. Primary hypertension - ICD9: 401.9, ICD10: I10 - Controlled - Continue current medications - HEMOGLOBIN A1C - LIPID PANEL BASIC 4. Type 2 diabetes mellitus with stage 4 chronic kidney disease, without long- term current use of insulin ([facility]) - ICD9: 250.40, 585.4, ICD10: E11.22, N18.4 - Controlled - Continue current medications - HEMOGLOBIN A1C - LIPID PANEL BASIC 5. ESRD (end stage renal disease) ([facility]) - ICD9: 585.6, ICD10: N18.6 - per nephrology. 6. Spinal stenosis of lumbar region, unspecified whether neurogenic claudication present - ICD9: 724.02, ICD10: M48.061 - CONSULT TO PAIN MGT 7. Anxiety - ICD9: 300.00, ICD10: F41.9 - HYDROXYZINE PAMOATE 25 MG CAPSULE - ONDANSETRON 4 MG DISINTEGRATING TABLET Ignacio Cheatham MD documented in this encounterOhiohealth [facility]01-24-2025 NoteHNO ID: [id number] Author: IGNACIO CHEATHAM MD Service: ? Author Type: Physician Type: Progress Notes Filed: 03/25/2024 11:30 Note Text: Patient presents with: Hospital F/U HPI: Patient presents today for office visit for HOSPITAL/ER FOLLOW UP: Reason for visit: concerns of TIA. Left hand numbness, some slurred speech, and facial droop during dialysis. Symptoms resolved upon arrival to ER. Admitted for observation. Which facility: [facility] Date of visit: 03/17/24-03/18/24 Diagnosis: numbness [...] mouth. As needed. flash glucose scanning reader ([employer] FESTUS 2 READER) Use to check glucose [...] Take 81 mg by mouth every morning.) Igtfhugb-Uq-Xpu-Fe-FA ( VITAMIN) ORAL Tab Take 1 tablet [...] Depression Diabetes (HCC) Diarrhea DVT, lower extremity ([facility]) 08/2014 Right leg (6) Esophagitis ESRD (end stage renal disease) ([facility]) 07/03/2022 Facial fracture due to fall ([facility]) ([facility]) Fatigue Fibromyalgia Fracture Fracture of shaft of fibula GERD (gastroesophageal reflux disease) HLD (hyperlipidemia) on tricor Hyperlipidemia Hypertension Hypomagnesemia Hypopotassemia IBS (irritable bowel syndrome) Insomnia Intertrigo Knee pain Morbid obesity ([facility]) 03/11/2011 Myalgia Nausea Neck pain Neuropathy Nocturnal leg cramps Non-cardiac chest pain Obesity CASSIE (obstructive sleep apnea) 07/08/2011 Other polyp of sinus Other specified anemias Personal history of unspecified urinary disorder PMH - PAST MEDICAL HISTORY OF left knee surgery x3 Pulmonary nodules Pyelonephritis, acute Restless leg Ruptured appendicitis S/P gastric bypass Snoring Type II or unspecified (more content not included)...[facility] 03-23-2024 Telephone encounter Note* Telephone Encounter - Georgina Salmon RN - 03/23/2024 1:49 PM EST Elenita with [employer] calling and states she will be faxing over forms regarding a Medicaid Program for patient. Please add ICD codes to form, and then fax form back to number provided. For any questions, Call Elenita at [phone] Georgina Salmon RN [facility]01-17-2025 [facility]01-03-2025 Telephone encounter Note* Telephone Encounter - Linda Sotelo - 03/04/2024 1:47 PM EST Images from the original note were not included. Jenni Castro, Allyssa Hare; Linda Sotelo Wa! Can you assist me with scheduling this? I tried but it needs financial clearance. She needs scheduled in [place] on a M, W, F, d/t dialysis the other days. Thanks! Jenni STERLING Testing Waiting on referral to be authorized, will call when it is. [facility]01-03-2025 Miscellaneous Notes* Telephone Encounter - Linda Sotelo - 03/04/2024 1:47 PM EST Images from the original note were not included. Jenni Castro, RN [place], [facility]; Linda Sotelo [place]! Can you assist me with scheduling this? I tried but it needs financial clearance. She needs scheduled in [place] on a M, W, F, d/t dialysis the other days. Thanks! Jenni ASHER Testing Waiting on referral to be authorized, will call when it is. documented in this encounterOhiohealth Southeastern Medical Center12-10-2024 NoteHNO ID: [id number] Author: SAIRA JACKSON, DO Service: ? Author Type: Physician Type: Progress Notes Filed: 02/26/2024 14:11 Note Text: [facility] [place] DEPARTMENT OF VASCULAR SURGERY OUTPATIENT VISIT DATE [...] Chronic kidney disease Contraceptive management Depression Diabetes ([facility]) Diarrhea DVT, lower extremity ([facility]) 08/2014 Right leg (6) Esophagitis ESRD (end stage renal disease) ([facility]) 07/03/2022 Facial fracture due to fall ([facility]) ([facility]) Fatigue Fibromyalgia Fracture Fracture of shaft of fibula GERD (gastroesophageal reflux disease) HLD (hyperlipidemia) on tricor Hyperlipidemia Hypertension Hypomagnesemia Hypopotassemia IBS (irritable bowel syndrome) Insomnia Intertrigo Knee pain Morbid obesity ([facility]) 03/11/2011 Myalgia Nausea Neck pain Neuropathy [...] by mouth. As needed. (more content not included)...[facility]12-10-2024 History of Present illness Narrative* Saira Jackson, DO - 02/09/2024 11:57 AM EST Images from the original note were not included. [facility] [place] DEPARTMENT OF VASCULAR SURGERY OUTPATIENT VISIT DATE [...] Depression Diabetes (HCC) Diarrhea DVT, lower extremity ([facility]) 08/2014 Right leg (6) Esophagitis ESRD (end stage renal disease) ([facility]) 07/03/2022 Facial fracture due to fall ([facility]) ([facility]) Fatigue Fibromyalgia Fracture Fracture of shaft [...] mouth. As needed. flash glucose scanning reader ([employer]YLE FESTUS 2 READER) Use to check glucose [...] Take 81 mg by mouth every morning.) Fnlrebpz-Jh-Zhf-Fe-FA ( VITAMIN) ORAL Tab Take 1 tablet [...] 2024 TIME: 12:06 PM documented in this encounterOhiohealth Southeastern Medical Center11-22-2024 Telephone encounter Note * Telephone Encounter - Chloe Carpenter LPN - 01/22/2024 9:15 AM EST Faxed as requested. [facility]11-22-2024 Miscellaneous Notes* Telephone Encounter - Chloe Carpenter LPN - 01/22/2024 9:15 AM EST Faxed as requested. * Telephone Encounter - Efra Box MA - 01/21/2024 2:57 PM EST Type of form: Circa Form received via walk in When form is completed, Fax form to [facility] [place] Form has been forwarded to Physician Desk: Dr. Linden Box MA documented in this encounterOhiohealth Southeastern Medical Center11-21-2024 Telephone encounter Note * Telephone Encounter - Efra Box MA - 01/21/2024 2:57 PM EST Type of form: Circa Form received via walk in When form is completed, Fax form to [facility] [place] Form has been forwarded to Physician Desk: Dr. Linden Box MA [facility]11-18-2024 Telephone encounter Note* Telephone Encounter - Cristal Carcamo MA - 01/18/2024 9:45 AM EST Please call pt to set up appt with Pharmacist. Cristal Carcamo MA [facility]11-18-2024 Miscellaneous Notes* Telephone Encounter - [...] assistance programs. Please advise documented in this encounterOhiohealth Southeastern Medical Center11-18-2024 Telephone encounter Note * Telephone Encounter - Ignacio Cheatham MD - 01/18/2024 9:09 AM EST done [facility]11-18-2024 Telephone encounter Note* Telephone Encounter - Arnold Bocanegra LPN - 01/18/2024 9:05 AM EST Patient calling said her insurance is not covering any of her medications. She was asking for referral to pharmacy, last time pharmacist helped her with that. Advised Social Work can assist with patient assistance programs. Please advise [facility]11-18-2024 Miscellaneous Notes* Telephone Encounter - Arnold Bocanegra LPN - 01/18/2024 9:04 AM EST Patient returned call and went over results, notes from Dr Myrick with understanding. Assisted withtransfer to surgery scheduler to get Sleep Med appt set up. * Telephone Encounter - Chloe Carpenter LPN - 01/14/2024 5:32 PM EST Fairphone message also sent to patient. * Telephone Encounter - Elenita Ellison LPN - 01/13/2024 9:18 AM EST Left message to call office. 01/13/2024 9:18 AM. Elenita Ellison LPN * Telephone Encounter - Sha Myrick MD - 01/12/2024 9:49 PM EST Let patient know her sleep study shows sleep apnea. Order placed to see sleep med. documented in this encounterOhiohealth Southeastern Medical Center11-18-2024 Telephone encounter Note * Telephone Encounter - Arnold Bocanegra LPN - 01/18/2024 9:04 AM EST Patient returned call and went over results, notes from Dr Myrick with understanding. Assisted withtransfer to surgery scheduler to get Sleep Med appt set up. [facility]11-14-2024 Telephone encounter Note* Telephone Encounter - Chloe Carpenter LPN - 01/14/2024 5:32 PM EST Fairphone message also sent to patient. [facility]11-13-2024 Telephone encounter Note* Telephone Encounter - Elenita Ellison LPN - 01/13/2024 9:18 AM EST Left message to call office. 01/13/2024 9:18 AM. Elenita Ellison LPN [facility]11-12-2024 Telephone encounter Note* Telephone Encounter - Sha Myrick MD - 01/12/2024 9:49 PM EST Let patient know her sleep study shows sleep apnea. Order placed to see sleep med. [facility]11-07-2024 NoteHNO ID: [id number] Author: ?, ?, ? Service: ? Author Type: ? Type: Progress Notes Filed: 01/07/2024 11:45 Note Text: Sleep Study Check-In Documentation Date: January 07, 2024 Name: Margareth Gonzalez Comments: HST was returned in working order without all sleep questionnaires [facility] [id number] History of Present illness Narrative* Dk Mccrary - 01/07/2024 11:44 AM EST Sleep Study Check-In Documentation Date: January 07, 2024 Name: Margareth Gonzalez Comments: HST was returned in working order without all sleep questionnaires Dk Mccrary * Keiko Soriano - 01/04/2024 3:25 PM EST Nomad # [id number] , date shipped out 01-04-24 [employer] only Tracking mailout: [id number] Tracking return: [id number] * Jonn Fortune III, PhD - 01/04/2024 10:17 AM EST January 04, 2024 Standing PSG Orders signed in the last 90 days None Future PSG Orders signed in the last 90 days Ordered Auth. provider HOME SLEEP APNEA TEST (HSAT) [[id number]] 12/25/23 Ignacio Cheatham MD Assoc. diagnoses: CASSIE [...] Chronic kidney disease Contraceptive management Depression Diabetes ([facility]) Diarrhea DVT, lower extremity ([facility]) 08/2014 Right leg (6) Esophagitis ESRD (end stage renal disease) ([facility]) 07/03/2022 Facial fracture due to fall ([facility]) ([facility]) Fatigue Fibromyalgia Fracture Fracture of shaft of fibula GERD (gastroesophageal reflux disease) HLD (hyperlipidemia) on tricor Hyperlipidemia Hypertension Hypomagnesemia Hypopotassemia IBS (irritable bowel syndrome) Insomnia Intertrigo Knee pain Morbid obesity ([facility]) 03/11/2011 Myalgia Nausea Neck pain Neuropathy [...] Fortune III, PhD 5:03 PM, 01/04/2024 * Kekio Soriano - 12/31/2023 10:06 PM EDT December 31, 2023 An order has been received for Home Sleep Apnea Test (HSAT) from Ignacio Renae MD , a B. [facility] Staff. Visit prep complete. Comments :No The sleep study is scheduled for 01-05-24. Insurance: Payor: ANTHEM / Plan: BLUE CARD PPO OOS / Product Type: PPO / Payer/Plan Subscr Sex Relation Sub. Ins. ID Effective Group Num 1. ANTHEM - BLUE* Margareth GONZALEZ 1965 Female Self [id number] 03/02/20 [id number] [id number] Keiko Soriano documented in this encounterOhiohealth Southeastern Medical Center11-04-2024 NoteHNO ID: [id number] Author: ?, ?, ? Service: ? Author Type: ? Type: Progress Notes Filed: 01/07/2024 11:45 Note Text: Nomad # [id number] , date shipped out 01-04-24 [employer] only Tracking mailout: [id number] Tracking return: [id number]11-04-2024 NoteHNO ID: [id number] Author: JONN FORTUNE III, PhD Service: ? Author Type: Physician Type: Progress Notes Filed: 01/07/2024 11:45 Note Text: January 04, 2024 Standing PSG Orders signed in the last 90 days None Future PSG Orders signed in the last 90 days Ordered Auth. provider HOME SLEEP APNEA TEST (HSAT) [[id number]] 12/25/23 Ignacio Cheatham MD Assoc. diagnoses: CASSIE [...] Chronic kidney disease Contraceptive management Depression Diabetes ([facility]) Diarrhea DVT, lower extremity ([facility]) 08/2014 Right leg (6) Esophagitis ESRD (end stage renal disease) ([facility]) 07/03/2022 Facial fracture due to fall ([facility]) ([facility]) Fatigue Fibromyalgia Fracture Fracture of shaft of fibula GERD (gastroesophageal reflux disease) HLD (hyperlipidemia) on tricor Hyperlipidemia Hypertension Hypomagnesemia Hypopotassemia IBS (irritable bowel syndrome) Insomnia Intertrigo Knee pain Morbid obesity ([facility]) 03/11/2011 Myalgia Nausea Neck pain Neuropathy [...] study in 2013, Needs new study [facility] Staff Note: I have read the above protocol, edited as needed, and agree to the plan. Jonn Fortune III, PhD 5:03 PM, 01/04/2024[facility]10-31-2024 NoteHNO ID: [id number] Author: ?, ?, ? Service: ? Author Type: ? Type: Progress Notes Filed: 01/07/2024 11:45 Note Text: December 31, 2023 An order has been received for Home Sleep Apnea Test (HSAT) from Ignacio Renae MD , a B. [facility] Staff. Visit prep complete. Comments :No The sleep study is scheduled for 01-05-24. Insurance: Payor: INESSAEM / Plan: BLUE CARD PPO OOS / Product Type: PPO / Payer/Plan Subscr Sex Relation Sub. Ins. ID Effective Group Num 1. ANTHKARLI - BLUE* Margareth GONZALEZ 1965 Female Self [id number] 03/02/20 [id number] [id number] [facility]24 NoteHNO ID: [id number] Author: IGNACIO CHEATHAM MD Service: ? Author [...] use coupon/copay card. Wants to change to endo in town. Has [employer] forms to complete [...] May, -- had repair. Went to [facility]. Then it go infected. Had to have two more surgeries. She then went to [facility]. Then she went 12 weeks, no weight bearing. Got out of [place] [facility] 10[facility]. Refers that she was put on a ventilator at night. Had a sleep study. Equipment via [place]. Hx of CASSIE. Not following with sleep [...] mouth. As needed. flash glucose scanning reader (Gripp'[employer] TechSTYLE FESTUS 2 READER) Use to check glucose [...] Take 81 mg by mouth every morning.) Xxmuoarx-Oy-Bfi-Fe-FA ( VITAMIN) ORAL Tab Take 1 tablet by mouth once daily. No current facility-administered medications for this visit. ALLERGIES: ALLERGIES Allergen Reactions Vicodin [Hydrocodon* Vomiting Balsam 115 Balsam [place] Unknown Barium Sulfate Unknown Benadryl Allergy De* [...] Bipolar I disorder, mo (more content not included)...[facility] 12-25-2023 History of Present illness Narrative* [...] use coupon/copay card. Wants to change to endo in town. Has [employer] forms to complete [...] May, -- had repair. Went to [facility]. Then it go infected. Had to have two more surgeries. She then went to [facility]. Then she went 12 weeks, no weight bearing. Got out of [place] [facility] 10[facility]. Refers that she was put on a ventilator at night. Had a sleep study. Equipment via [place]. Hx of CASSIE. Not following with sleep [...] mouth. As needed. flash glucose scanning reader (Gripp'[employer] TechSTYLE FESTUS 2 READER) Use to check glucose [...] Take 81 mg by mouth every morning.) Jqscgsbd-Sn-Miy-Fe-FA ( VITAMIN) ORAL Tab Take 1 tablet [...] Chronic kidney disease Contraceptive management Depression Diabetes ([facility]) Diarrhea DVT, lower extremity ([facility]) 08/2014 Right leg (6) Esophagitis ESRD (end stage renal disease) ([facility]) 07/03/2022 Facial fracture due to fall ([facility]) ([facility]) Fatigue Fibromyalgia Fracture Fracture of shaft of fibula GERD (gastroesophageal reflux disease) HLD (hyperlipidemia) on tricor Hyperlipidemia Hypertension Hypomagnesemia Hypopotassemia IBS (irritable bowel syndrome) Insomnia Intertrigo Knee pain Morbid obesity ([facility]) 03/11/2011 Myalgia Nausea Neck pain Neuropathy [...] (HSAT) 5. ESRD (end stage renal disease) ([facility]) - ICD9: 585.6, ICD10: N18.6 - will be switching to home dialysis. 6. Proliferative diabetic retinopathy associated with type 2 diabetes mellitus, unspecified laterality, unspecified proliferative retinopathy type ([facility]) - ICD9: 250.50, 362.02, ICD10: E11.3599 - follow with optho. 7. 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 Will let me know when ready. 8. Bipolar affective disorder, remission status unspecified ([facility]) - ICD9: 296.80, ICD10: F31.9 - continue meds. 9. Personal history of DVT (deep vein thrombosis) - ICD9: V12.51, ICD10: Z86.718 - stable. Ignacio Cheatham MD documented in this encounterOhiohealth Southeastern Medical Center10-21-2024 NoteHNO ID: [id number] Author: OMKAR LAZCANO LPN Service: ? Author Type: LICENSED NURSE Type: Progress Notes Filed: 12/30/2023 11:15 Note Text: Prepared injection per Dr. Carney order and handed to him. Left knee Omkar Lazcano LPN December 21, 2023 3:18 [facility]10-21-2024 History of Present illness Narrative* Omkar [...] Chronic kidney disease Contraceptive management Depression Diabetes ([facility]) Diarrhea DVT, lower extremity ([facility]) 08/2014 Right leg (6) Esophagitis ESRD (end stage renal disease) ([facility]) 07/03/2022 Facial fracture due to fall ([facility]) ([facility]) Fatigue Fibromyalgia Fracture Fracture of shaft of fibula GERD (gastroesophageal reflux disease) HLD (hyperlipidemia) on tricor Hyperlipidemia Hypertension Hypomagnesemia Hypopotassemia IBS (irritable bowel syndrome) Insomnia Intertrigo Knee pain Morbid obesity ([facility]) 03/11/2011 Myalgia Nausea Neck pain Neuropathy [...] mouth. As needed. flash glucose scanning reader ([employer] FESTUS 2 READER) Use to check glucose [...] Take 81 mg by mouth every morning.) Kpzcabvi-Ym-Erx-Fe-FA ( VITAMIN) ORAL Tab Take 1 tablet [...] knee joint Informed Consent Consent Obtained: Verbal [place] Protocol A moment to CARE was completed. [...] understanding of these instructions. documented in this encounterOhiohealth Southeastern Medical Center10-21-2024 NoteHNO ID: [id number] Author: DORENE MURILLO MD Service: ? Author [...] (6) Esophagitis ESRD (end stage renal disease) ([facility]) 07/03/2022 Facial fracture due to fall ([facility]) ([facility]) Fatigue Fibromyalgia Fracture Fracture of shaft of fibula GERD (gastroesophageal reflux disease) HLD (hyperlipidemia) on tricor Hyperlipidemia Hypertension Hypomagnesemia Hypopotassemia IBS (irritable bowel syndrome) Insomnia Intertrigo Knee pain Morbid obesity ([facility]) 03/11/2011 Myalgia Nausea Neck pain Neuropathy [...] Sig hydrOXYzine HCl ( (more content not included)...[facility] 12-11-2023 Instructions* Patient Instructions* Tresa Marcum APRN.NOY - 12/11/2023 11:57 AM EDT Start the clindamycin twice daily. Schedule w/ Dr. Jackson. Increase the cymbalta to 30 mg daily. Take 1/2 tab of the sertraline (25 mg) daily X 1 week, then stop. documented in this encounterOhiohealth Southeastern Medical Center10-11-2024 NoteHNO ID: [id number] Author: TRESA MARCUM APRN.CNP Service: ? Author Type: Nurse Practitioner Type: Progress Notes Filed: 12/11/2023 17:24 Note Text: This is a 58 year old female who presents today with: Patient presents with: Hospital F/U skilled care follow up HISTORY OF PRESENT ILLNESS: Margareth Gonzalez is a 58 year old female. Patient presents with: [facility] F/U skilled care follow up Pt presents [...] two more surgeries. She then went to [facility] [facility]. Then she went 12 weeks, no weight bearing. [facility] [place] of [place] [facility]. Refers that she was put on a ventilator at night. Had a sleep study. Equipment via [place]. Hx of CASSIE. Not following with sleep [...] Chronic kidney disease Contraceptive management Depression Diabetes ([facility]) Diarrhea DVT, lower extremity ([facility]) 08/2014 Right leg (6) Esophagitis ESRD (end stage renal disease) ([facility]) 07/03/2022 Facial fracture due to fall ([facility]) ([facility]) Fatigue Fibromyalgia Fracture Fracture of shaft of fibula GERD (gastroesophageal reflux disease) HLD (hyperlipidemia) on tricor Hyperlipidemia Hypertension Hypomagnesemia Hypopotassemia IBS (irritable bowel syndrome) Insomnia Intertrigo Knee pain Morbid obesity ([facility]) 03/11/2011 Myalgia Nausea Neck pain Neuropathy [...] time ALLERGIES Vicodin [Hydrocodone-Acetaminophen], Balsam 115, Balsam [place], Barium Sulfate, Benadryl Allergy Decongestant, Benadryl [Diphenhydramine [...] mouth every 8 hour (more content not included)...[facility]10-11-2024 History of Present illness Narrative* Tresa Marcum, PATRICE.SALOONKEEPER - 12/11/2023 11:30 AM EDT This is [...] two more surgeries. She then went to [facility]. Then she went 12 weeks, no weight bearing. [place] [facility]. Refers that she was put on a ventilator at night. Had a sleep study. Equipment via [place]. Hx of CASSIE. Not following with sleep [...] Chronic kidney disease Contraceptive management Depression Diabetes ([facility]) Diarrhea DVT, lower extremity ([facility]) 08/2014 Right leg (6) Esophagitis ESRD (end stage renal disease) ([facility]) 07/03/2022 Facial fracture due to fall ([facility]) ([facility]) Fatigue Fibromyalgia Fracture Fracture of shaft of fibula GERD (gastroesophageal reflux disease) HLD (hyperlipidemia) on tricor Hyperlipidemia Hypertension Hypomagnesemia Hypopotassemia IBS (irritable bowel syndrome) Insomnia Intertrigo Knee pain Morbid obesity ([facility]) 03/11/2011 Myalgia Nausea Neck pain Neuropathy [...] time ALLERGIES Vicodin [Hydrocodone-Acetaminophen], Balsam 115, Balsam [place], Barium Sulfate, Benadryl Allergy Decongestant, Benadryl [Diphenhydramine Hcl], Codeine, Lisinopril, Mold, Nsaids ([facility]di[facility]zhuqjlojUaku-Ufcaynhjax[facility] Drug), Penicillins, Seasonal Allergies, Tetracycline, Vanilla Extract, [...] mouth once daily. flash glucose scanning reader (Gripp'n TechSTYLE FESTUS 2 READER) Use to check glucose [...] Take 81 mg by mouth every morning.) Hfoaehjg-Bk-Ept-Fe-FA ( VITAMIN) ORAL Tab Take 1 tablet [...] immunization - ICD9: V03.89, ICD10: Z23 - PFIZER-BIONTSatiety COVID-19 VACCINE AGE 12+ YR (COMIRNATY) 8. Type 2 diabetes mellitus with stage [...] as needed for worsening/no improvement. Tresa Marcum APRN.SALOONKEEPER documented in this encounterOhiohealth [facility] Center10-07-2024 Telephone encounter Note * Telephone Encounter - Clare Singh RN - 12/07/2023 1:03 PM EDT Pt called in and reports she has been [place] [facility] for 2 months and has been trying to get in with Dr Cheatham. I got her in with Tresa Marcum PRODUCT TECHNOLOGY SCIENTIST 12/11/23. Pt reports she had R knee surgery went to the [facility] and got an infection I her knee. She states she had to go back to [facility] to have subsequent surgery. Then Pt states she went to [facility] after that for rehab. [facility]10-07[facility] Miscellaneous Notes* Telephone Encounter - Clare Singh RN - 12/07/2023 1:03 PM EDT Pt called in and reports she has been home [place] the [place] [facility] for 2 months and has been trying to get in with Dr Cheatham. I got her in with Tresa Marcum NP 12/11/23. Pt reports she had R knee surgery went to the [facility] and got an infection I her knee. She states she had to go back to [facility] to have subsequent surgery. Then Pt states she went to [facility] after that for rehab. documented in this encounterOhiohealth Southeastern Medical Center07-23-2024 Telephone encounter Note * Telephone Encounter - Nedra Cramer - 09/22/2023 8:48 AM EDT Checking with Dr. Murillo to see if he wants to sign the attached order for aquatics therapy, or should I delete it. Nedra Cramer September 22, 2023 8:49 AM [facility]07-23-2024 Miscellaneous Notes* Telephone Encounter - Nedra Cramer - 09/22/2023 8:48 AM EDT Checking with Dr. Murillo to see if he wants to sign the attached order for aquatics therapy, or should I delete it. Nedra Cramer September 22, 2023 8:49 AM * Telephone Encounter - Nedra Cramer - 09/18/2023 3:07 PM EDT PC to Ruthie at [facility] and relayed information. She will check and see if there would be someone available to look over her wounds daily, as Dr. Murillo stated would be necessary, to ensure incisions are ok. Nedra Cramer September 18, 2023 3:08 PM * Telephone Encounter - Nedra Cramer - 09/18/2023 2:57 PM EDT Received vm message from Ruthie with [facility]. Stated that patient desires to participate in aquatic therapy and is asking if that is ok. P# [phone], fax [phone]. Patient seen in the office on 09/13 for her right lower leg. Order prepared for Dr. Murillo's review/approval. Nedra Cramer September 18, 2023 2:58 PM documented in this encounterOhiohealth Southeastern Medical Center07-19-2024 Telephone encounter Note * Telephone Encounter - Nedra Cramer - 09/18/2023 3:07 PM EDT PC to Ruthie at [facility] and relayed information. She will check and see if there would be someone available to look over her wounds daily, as Dr. Murillo stated would be necessary, to ensure incisions are ok. Nedra Cramer September 18, 2023 3:08 PM [facility]07-19-2024 Telephone encounter Note* Telephone Encounter - Nedra Cramer - 09/18/2023 2:57 PM EDT Received vm message from Ruthie with [facility]. Stated that patient desires to participate in aquatic therapy and is asking if that is ok. P# [phone], fax [phone]. Patient seen in the office on 09/13 for her right lower leg. Order prepared for Dr. Murillo's review/approval. Nedra Cramer September 18, 2023 2:58 PM [facility]07-15-2024 NoteHNO ID: [id number] Author: DORENE MURILLO MD Service: ? Author [...] Chronic kidney disease Contraceptive management Depression Diabetes ([facility]) Diarrhea DVT, lower extremity ([facility]) 08/2014 Right leg (6) Esophagitis ESRD (end stage renal disease) ([facility]) 07/03/2022 Facial fracture due to fall ([facility]) ([facility]) Fatigue Fibromyalgia Fracture Fracture of shaft of fibula GERD (gastroesophageal reflux disease) HLD (hyperlipidemia) on tricor Hyperlipidemia Hypertension Hypomagnesemia Hypopotassemia IBS (irritable bowel syndrome) Insomnia Intertrigo Knee pain Morbid obesity ([facility]) 03/11/2011 Myalgia Nausea Neck pain Neuropathy [...] Medications Medication Sig lab (more content not included)...[facility]07-15-2024 History of Present illness Narrative* Dorene [...] Chronic kidney disease Contraceptive management Depression Diabetes ([facility]) Diarrhea DVT, lower extremity ([facility]) 08/2014 Right leg (6) Esophagitis ESRD (end stage renal disease) ([facility]) 07/03/2022 Facial fracture due to fall ([facility]) ([facility]) Fatigue Fibromyalgia Fracture Fracture of shaft of fibula GERD (gastroesophageal reflux disease) HLD (hyperlipidemia) on tricor Hyperlipidemia Hypertension Hypomagnesemia Hypopotassemia IBS (irritable bowel syndrome) Insomnia Intertrigo Knee pain Morbid obesity ([facility]) 03/11/2011 Myalgia Nausea Neck pain Neuropathy [...] daily at bedtime. flash glucose scanning reader (Gripp'n TechSTYLE FESTUS 2 READER) Use to check glucose [...] Take 81 mg by mouth every morning.) Kanygotl-Vy-Qph-Fe-FA ( VITAMIN) ORAL Tab Take 1 tablet [...] Surgery 09/18/2023 1:48 PM documented in this encounterOhiohealth Southeastern Medical Center06-18-2024 NoteHNO ID: [id number] Author: DORENE MURILLO MD Service: ? Author [...] Chronic kidney disease Contraceptive management Depression Diabetes ([facility]) Diarrhea DVT, lower extremity ([facility]) 08/2014 Right leg (6) Esophagitis ESRD (end stage renal disease) ([facility]) 07/03/2022 Facial fracture due to fall ([facility]) ([facility]) Fatigue Fibromyalgia Fracture Fracture of shaft of fibula GERD (gastroesophageal reflux disease) HLD (hyperlipidemia) on tricor Hyperlipidemia Hypertension Hypomagnesemia Hypopotassemia IBS (irritable bowel syndrome) Insomnia Intertrigo Knee pain Morbid obesity ([facility]) 03/11/2011 Myalgia Nausea Neck pain Neuropathy [...] Medications Medication Sig heparin (more content not included)...[facility]06-18-2024 History of Present illness Narrative* Dorene [...] Chronic kidney disease Contraceptive management Depression Diabetes ([facility]) Diarrhea DVT, lower extremity ([facility]) 08/2014 Right leg (6) Esophagitis ESRD (end stage renal disease) ([facility]) 07/03/2022 Facial fracture due to fall ([facility]) ([facility]) Fatigue Fibromyalgia Fracture Fracture of shaft of fibula GERD (gastroesophageal reflux disease) HLD (hyperlipidemia) on tricor Hyperlipidemia Hypertension Hypomagnesemia Hypopotassemia IBS (irritable bowel syndrome) Insomnia Intertrigo Knee pain Morbid obesity ([facility]) 03/11/2011 Myalgia Nausea Neck pain Neuropathy [...] Take 81 mg by mouth every morning.) Bdxvepsb-Jn-Kzd-Fe-FA ( VITAMIN) ORAL Tab Take 1 tablet by mouth once daily. amitriptyline (ELAVIL) 100 mg tablet Take 1 tablet by mouth daily at bedtime. No current facility-administered medications for this visit. ALLERGIES: ALLERGIES Allergen Reactions Vicodin [Hydrocodon* Vomiting Balsam 115 Balsam [place] Unknown Barium Sulfate Unknown Benadryl Allergy De* [...] Surgery 08/18/2023 1:34 PM documented in this encounterOhiohealth Southeastern Medical Center06-07-2024 NoteHNO ID: [id number] Author: BURKE GARVEY MD Service: Nephrology Author [...] ESRD. Patient is being discharged today to [facility] and [facility]. She will be dialyzed here on NxStage [...] CREAT 2.89* CA 8. (more content not included)...[facility]06-07-2024 Note HNO ID: [id number] Author: CHRIS LINK RN Service: Care Management Author Type: Registered Nurse Type: Care Mgt Progress Note Filed: 08/07/2023 08:56 Note Text: CARE MANAGEMENT DISCHARGE NOTE SERVICE DATE: August 07, 2023 SERVICE TIME: 8:55 AM Admission Date: 07/29/2023 LOS: 9 days Discharge Arrangement Discharge Arrangement: Snf Facility Was an expedited discharge program used?: No Services Arranged Medical Services: Other: See Comment Caregiver Assessment Caregiver is ready, willing and able to meet the patient's needs as recommended by the inter-professional team: Yes Name of Caregiver: [facility] Transportation Arrangements Transportation Arrangements: Ambulance Transportation Agency and Phone #:: [facility] ( [facility] ) [phone] / [phone] Date of Trip: 08/07/23 Time of Trip: 1300 Type of Service: BLS Non-emergency Is Patient Medicaid Pending?: No Was transportation financial coverage discussed with family?: 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 7000 completed in toby Moyer RN to call report and packet next to patient chart. Facility will transport patient to [facility] for dialysis. SIGNATURE: Chris Link RN PATIENT NAME: Margareth Gonzalez DATE: August 07, 2023 TIME: 8:55 AM CONTACT #: [id number] [facility]06-07-2024 Note HNO ID: [id number] Author: DORENE MURILLO MD Service: Orthopaedic Surgery [...] Dave Blanchard MD Orthopaedic Surgery 08/07/2023 5:43 [facility]06-07-2024 NoteHNO ID: [id number] Author: FRANNY NO, RN Service: Nursing Author Type: Registered Nurse Type: Nursing Progress Note Filed: 08/07/2023 04:30 Note Text: Attempted to collect morning labs, Pt. Refused, Ortho resident notified.[facility]05-29-2024 Telephone encounter Note* Telephone Encounter - Nedra Cramer - 07/29/2023 8:00 AM EDT Chart indicates patient brought to ED and is scheduled with Dr. Murillo today for surgery of the wound. Nedra Cramer July 29, 2023 8:00 AM [facility]05-29-[facility]24 Miscellaneous Notes* Telephone Encounter - [...] vm message from Gisselle at [facility], asking for an appointment to be scheduled forpatient's right lower extremity infection, . No office hours available until 08/02. Checking with Dr. Murillo to see what he advises. Nedra Cramer July 28, 2023 1:41 PM * Telephone Encounter - Nedra Cramer - 07/28/2023 1:12 PM EDT VM message from Halle, who called to say the patient is in a [place] [facility]. She stated patient had surgery in her leg by in May. She stated her leg is infected, [place] [facility] her to the hospital where she was given antibiotics. Stated the antibiotics make her ill, and patient's leg smells badly. Halle stated that the [place] [facility] is not taking good care of the patient and she is reaching out for Dr. Murillo. Called Halle at [phone] and left vm message, asking what it is she is asking Dr. Murillo to do. I stated that he does not have the ability to oversee treating of the patient in the [place] [facility]. Advising Dr. Murillo. Nedra Cramer July 28, 2023 1:14 PM documented in this encounterOhiohealth Southeastern Medical Center05-28-2024 Telephone encounter Note * Telephone [...] Nedra Cramer July 28, 2023 3:22 PM [facility]05-28-2024 Telephone encounter Note* Telephone Encounter - Nedra Cramer - 07/28/2023 1:40 PM EDT Received vm message from Gisselle at [facility], asking for an appointment to be scheduled forpatient's right lower extremity infection, . No office hours available until 08/02. Checking with Dr. Murillo to see what he advises. Nedra Cramer July 28, 2023 1:41 PM [facility]05-28-2024 Telephone encounter Note* Telephone Encounter - Nedra Cramer - 07/28/2023 1:12 PM EDT VM message from Halle, who called to say the patient is in a [place] [facility]. She stated patient had surgery in her leg by in May. She stated her leg is infected, [place] [facility] her to the hospital where she was given antibiotics. Stated the antibiotics make her ill, and patient's leg smells badly. Halle stated that the [place] [facility] is not taking good care of the patient and she is reaching out for Dr. Murillo. Called Halle at [phone] and left vm message, asking what it is she is asking Dr. Murillo to do. I stated that he does not have the ability to oversee treating of the patient in the [place] [facility]. Advising Dr. Murillo. Nedra Cramer July 28, 2023 1:14 PM [facility]05-10-2024 Telephone encounter Note* Telephone Encounter [...] Oxycodone 5mg every 6 Hrs sent to [facility] fax number : [phone]. If reason for call/escalation is discharge from ED/ER or Hospital, which facility was the patient seen at: na Was an appointment scheduled (Y/N): n Person calling if other than patient: Wilma Rene with [facility] Return call to if other than patient: [phone] Best contact number: [phone] Thank you, Marie Andujar July 10, 2023 11:06 AM [facility]05-10-2024 Miscellaneous Notes* Telephone Encounter - [...] sent to [facility] fax number : [phone]. If reason for call/escalation is discharge from ED/ER or Hospital, which facility was the patient seen at: na Was an appointment scheduled (Y/N): n Person calling if other than patient: Wilma Rene with [facility] Return call to if other than patient: [phone] Best contact number: [phone] Thank you, Marie Con July 10, 2023 11:06 AM documented in this encounterOhiohealth Southeastern Medical Center05-06-2024 History of Present illness Narrative* Dorene uMrillo MD - 07/06/2023 12:35 PM EDT Images [...] Chronic kidney disease Contraceptive management Depression Diabetes ([facility]) Diarrhea DVT, lower extremity ([facility]) 08/2014 Right leg (6) Esophagitis ESRD (end stage renal disease) ([facility]) 07/03/2022 Facial fracture due to fall ([facility]) ([facility]) Fatigue Fibromyalgia Fracture Fracture of shaft [...] daily at bedtime. flash glucose scanning reader (Gripp'n TechSTYLE FESTUS 2 READER) Use to check glucose [...] Take 1 tablet by mouth once daily. Npwjidoy-Zm-Idh-Fe-FA ( VITAMIN) ORAL Tab Take 1 tablet by mouth once daily. ferrous sulfate 325 mg (65 mg iron) tablet Take 1 tablet by mouth. sodium bicarbonate 650 mg tablet Take 2 tablets by mouth twice daily. No current facility-administered medications for this visit. ALLERGIES: ALLERGIES Allergen Reactions Vicodin [Hydrocodon* Vomiting Balsam 115 Balsam [place] Unknown Barium Sulfate Unknown Benadryl Allergy De* [...] Surgery 07/09/2023 11:03 AM documented in this encounterOhiohealth Southeastern Medical Center04-30-2024 Telephone encounter Note * Telephone Encounter - Rosemary Hassan - 06/30/2023 2:[address] [facility] ([phone] [facility]) called in inquiring about the Rx for pain. The physicians at the facilityprefer to have the originating dr prescribe the refills. Also needing to be sent to [facility] in [place] (which is their pharmacy). Called [facility] to have the current (06/29/23) cancelled. Rosemary Hassan June 30, 2023 2:12 PM [facility]04-30-2024 Miscellaneous Notes* Telephone Encounter - Rosemary Hassan - 06/30/2023 2:03 PM EDT SNF ([phone] [facility]) called in inquiring about the Rx for pain. The physicians at the facilityprefer to have the originating dr prescribe the refills. Also needing to be sent to [facility] in [place] (which is their pharmacy). Called [facility] to have the current (06/29/23) cancelled. Rosemary Hassan June 30, 2023 2:12 PM documented in this encounterOhiohealth Southeastern Medical Center04-30-2024 Discharge summary Author Ismael Gillespie [facility] June 29, 2023 10:46pm Note Date/Time June 29, 2023 8:0 3pm [facility] Medical Records Department [address] [place] [address] Emergency Department Summary 06/29/23 MR#: [id number] Acct: [id number] Name: Margareth GONZALEZ Rep #:[id number] : 1965 58 From: Ismael Gillespie [...] be made for transfusion as an outpatient. 06/29/23 2246<Electronically signed by Ismael Gillespie MD> Cosigner Signature [...] hematocrit of 26.1. This was performed at [facility]) Timing: Continuous Quality: Fatigue and weakness Location: Generalized Current Severity: Mild Maximum Severity: Mild Worsened by: Dyspnea on exertion Relieved by: Nothing Associated Symptoms Associated Symptoms: Nothing Narrative Narrative: Patient is a 58-year-old woman. She underwent orthopedic surgery approximately 2 to 2.5 weeks ago. Stephen in her right leg was defective and broke. She had to undergo surgery at [facility]. She went underwent extensive surgery. She [...] Prior similar symptoms: No Recent Illness/Hospitalization: Yes [facility] Medical History Anemia Anxiety and depression Asthma [...] 100 mg PO DAILY STOOL SOFTENER #20 [id number]/16/23 [Rx Last Taken Unknown] labetalol 100 mg [...] discharged back to facility. Prior records from [facility] were reviewed. Priorhemoglobin at [facility] was March this year and 9.1. [...] your Primary Care Provider. Call [facility] ([phone]) or report to the closest Emergency Room. Call 911 if necessary. 06/29/232110 <Electronically signed by Ismael Gillespie MD> Cosigner Signature (if applicable): CC: Dr. Ignacio Cheatham MD ~ Signed [facility] Work Phone: [phone] Telephone encounter Note* Telephone Encounter - Claudette Cordero LPN - 06/24/2023 10:50 AM EDT Ameena with [facility] called to let you know she pt's designated nurse human services case manager. Direct line she can be reached at PH: [phone] EXT: [phone]. Claudette Cordero LPN [facility]04-24-2024 Miscellaneous Notes* Telephone Encounter - Claudette Cordero LPN - 06/24/2023 10:50 AM EDT Ameena with [facility] called to let you know she pt's designated nurse human services case manager. Direct line she can be reached at PH: [phone] EXT: [phone]. Claudette Cordero LPN documented in this encounterOhiohealth Southeastern Medical Center04-23-2024 Telephone encounter Note * Telephone Encounter - Rosemary Hassan - 06/23/2023 4:[address] [facility] [phone] and scheduled PT per Dr. Murillo's note. Rosemary Hassan June 23, 2023 4:08 PM [facility]04-23-2024 Miscellaneous Notes* Telephone Encounter - Rosemary Hassan - 06/23/2023 4:[address] [facility] [phone] and scheduled PT per Dr. Murillo's note. Rosemary Hassan June 23, 2023 4:08 PM * Telephone Encounter - Rosemary Hassan - 06/23/2023 1:48 PM EDT ----- Message from Sally Peralta sent at 06/23/2023 10:12 AM EDT ----- Regarding: Czahk-Lbupaxcv-Xdsu Op- Tibia Fracture Subject Line Format: Orthopedics [...] which facility was the patient seen at: [facility] Was an appointment scheduled (Y/N): n/a Person calling if other than patient: rashawn at [place] Return call to if other than patient: joselin at [place] Best contact number: [phone] Thank you, Sally Peralta June 23, 2023 10:13 AM * Telephone Encounter - Rosemary Hassan - 06/18/2023 9:15 AM EDT ----- Message from Dorene Murillo MD sent at 06/18/2023 8:59 AM EDT ----- Follow up 07/05. Thanks documented in this encounterOhiohealth Southeastern Medical Center04-23-2024 Telephone encounter Note * Telephone Encounter - Rosemary Hassan - 06/23/2023 1:48 PM EDT ----- Message from Sally Peralta sent at 06/23/2023 10:12 AM EDT ----- Regarding: Ojvgw-Mxndmhvd-Fxkk Op- Tibia Fracture Subject Line Format: Orthopedics [...] which facility was the patient seen at: [facility] Was an appointment scheduled (Y/N): n/a Person calling if other than patient: rashawn at [place] Return call to if other than patient: joselin at [place] Best contact number: [phone] Thank you, Sally Peralta June 23, 2023 10:13 AM [facility]04-18-2024 Telephone encounter Note* Telephone Encounter - Rosemary Hassan - 06/18/2023 9:15 AM EDT ----- Message from Dorene Murillo MD sent at 06/18/2023 8:59 AM EDT ----- Follow up 07/05. Thanks [facility]04-16-2024 Ismael from [facility] called to see if referral was received. Confirmed it's in media. Teams sent, no response. Disconnected then saw the message. Called sister Halle to schedule and made he aware she went into the ER at [facility] and had surgery 06/12/23 w/ Dr. Dorene Murillo. NO apt made. Returned call to Linda @ [phone] to make her aware the referral was not scheduled. Patient still in house with [facility] from surgery.[facility] 06-16-2023 Telephone encounter Note* Telephone Encounter - Radha Smith - 06/16/2023 2:48 PM EDT Linda from [facility] called to see if referral was received. Confirmed it's in media. Teams sent, no response. Disconnected then saw the message. Called sister Halle to schedule and made he aware she went into the ER at [facility] and had surgery 06/12/23 w/ Dr. Dorene Murillo. NO apt made. Returned call to Linda @ [phone] to make her aware the referral was not scheduled. Patient still in house with CCAG from surgery. [id number] Miscellaneous Notes* Telephone Encounter - Radha Smith - 06/16/2023 2:48 PM EDT Linda from [facility] called to see if referral was received. Confirmed it's in media. Teams sent, no response. Disconnected then saw the message. Called sister aHlle to schedule and made he aware she went into the ER at [facility] and had surgery 06/12/23 w/ Dr. Dorene Murillo. NO apt made. Returned call to Linda @ [phone] to make her aware the referral was not scheduled. Patient still in house with CCAG from surgery. * Telephone Encounter - Liz Hopper - 06/15/2023 9:53 AM EDT Referral information received. Attempted to call sister, Halle, to schedule. No answer. LVM with direct line. Schedule with Mo on 06/[address] being completed on 06/21 xray / PRODUCT TECHNOLOGY SCIENTIST pathological fx, right tibia, delayed healing, referral from [facility] in media, Patient to bring CT from 06/21 on disc * Telephone Encounter - Ирина Lindsey - 06/12/2023 3:57 PM EDT Name of Caller: Linda Wood [facility] Contact Reason for Appointment: BREANNA Villavicencio is requesting that Arnold be seen as soon as possible by Dr. Hassan. Linda states that she faxed over records a few days ago. After checking informed her that office did not receive the records. She is going to refax the documents and states she will call back on Thursday. Office Name: Ortho documented in this [facility]04-15-2024 NoteReferral information received. Attempted to call Halle justice, to schedule. No answer. LVM with direct line. Schedule with Mo on 06/[address] being completed on 06/21 xray / PRODUCT TECHNOLOGY SCIENTIST pathological fx, right tibia, delayed healing, referral from [facility] in media, Patient to bring CT from 06/21 on [facility] 06-15-2023 Telephone encounter Note* Telephone Encounter - Liz Hopper - 06/15/2023 9:53 AM EDT Referral information received. Attempted to call Halle justice, to schedule. No answer. LVM with direct line. Schedule with Mo on 06/[address] being completed on 06/21 xray / PRODUCT TECHNOLOGY SCIENTIST pathological fx, right tibia, delayed healing, referral from [facility] in media, Patient to bring CT from 06/[address] [id number] Telephone encounter Note* Telephone Encounter - Ирина Lindsey - 06/12/2023 3:57 PM EDT Name of Caller: Linda - [facility] Contact Reason for Appointment: BREANNA Villavicencio is requesting that Arnold be seen as soon as possible by Dr. Hassan. Linda states that she faxed over records a few days ago. After checking informed her that office did not receive the records. She is going to refax the documents and states she will call back on Thursday. Office Name: Ortho [place] [id number] Miscellaneous Notes* Telephone Encounter - Sarah Zaman MA - 06/11/2023 7:49 AM EDT Patient seen at [facility] and transferred to [facility]. She is admitted and scheduled for surgery tomorrow. * Telephone Encounter - Elvira Maldonado RN - 06/10/2023 3:34 PM EDT Arnold called. The stephen that was placed in her leg in November of 2022 has broken. She has been advisedthat she needs to find an orthopaedic trauma surgeon within the [facility] to repair it forher. Would Dr. Riggs be able to do a referral for her? Arnold also stated that, if he cannot help her, should she be evaluated at [facility] [place] [facility] and see if they can refer her to a provider? She would like to speak with someone as soon as possible. If she does not answer, you may leave a detailed message on her voicemail for number [phone]. Elvira Maldonado RN documented in this encounterOhio[facility]04-08-2024 Telephone encounter Note * Telephone Encounter - Kat Joaquin LPN - 06/08/2023 10:12 AM EDT Pt. calling to let you know she was in Er and has a crack in a stephen that is in her leg. She is goingto Follow up with Ortho on Thursday. Leg is slightly red if it gets worse will call tomorrow. [facility] Work Phone: [phone] 602-322404-08-2024 Miscellaneous Notes* Telephone Encounter - Kat Joaquin LPN - 06/08/2023 10:12 AM EDT Pt. calling to let you know she was in Er and has a crack in a stephen that is in her leg. She is goingto Follow up with Ortho on Thursday. Leg is slightly red if it gets worse will call tomorrow. documented in this encounterOhiohealth [facility] Center03-20-2024 Miscellaneous Notes* Telephone Encounter - [...] appointment for new or worsening symptoms. Ameena Dumont RN documented in this encounterOhiohealth [facility] Center03-15-2024 Instructions* Patient Instructions* Frank Gerard [...] (or decreased sensation in your feet) a nutrition associate should always cut your toenails. Be Careful [...] Go to your health care provider or nutrition associate to treat these conditions. Recommend topical antibiotic (neosporin) to right great toe until healed. documented in this encounterOhiohealth [facility]heastern Medical Center03-15-2024 History of Present illness Narrative* Frank Gerard - 05/15/2023 11:40 AM EDT Images from [...] Chronic kidney disease Contraceptive management Depression Diabetes ([facility]) Diarrhea DVT, lower extremity ([facility]) 08/2014 Right leg (6) Esophagitis ESRD (end stage renal disease) ([facility]) 07/03/2022 Facial fracture due to fall ([facility]) ([facility]) Fatigue Fibromyalgia Fracture Fracture of shaft of fibula GERD (gastroesophageal reflux disease) HLD (hyperlipidemia) on tricor Hyperlipidemia Hypertension Hypomagnesemia Hypopotassemia IBS (irritable bowel syndrome) Insomnia Intertrigo Knee pain Morbid obesity ([facility]) 03/11/2011 Myalgia Nausea Neck pain Neuropathy [...] Take 1 tablet by mouth once daily. Nrbonchr-Fz-Sae-Fe-FA ( VITAMIN) ORAL Tab Take 1 tablet [...] Objective: Patient presents to clinic ambulating in [facility] Constitutional: Pt is a well developed 57 [...] states she has calcium build up in tends and in September 2022 while she was [facility] she felt tendons snap which causes bruising. Patient has small wound to right great toe. Laura Valenzuela LPN documented in this encounterOhiohealth [facility] Medical Center03-01-2024 History of Present illness Narrative* [...] continue care with primary care doctor and/or bus and trolley inspecting dispatcher to maintain optimum levels as they are [...] 01, 2023 11:32 AM documented in this encounterOhiohealth Southeastern Medical Center02-13-2024 Miscellaneous Notes* Telephone Encounter - [...] advise, Diana Brand RN documented in this encounterOhiohealth Southeastern Medical Center02-05-2024 Miscellaneous Notes* Telephone Encounter - [...] or shortness of breath. documented in this encounterOhiohealth Southeastern Medical Center02-02-2024 History of Present illness Narrative* Felix Edmondson, RT(R) - 04/03/2023 2:00 PM EST Radiology [...] PATIENT PRESENTS WITH AN IMPLANTABLE OR ATTACHED LOAN SPECIALIST: No RADIOLOGY DEPARTMENT: CT; Exam(s) Completed: Chest PERIPHERAL IV DATA: Not applicable SIGNED BY: RT Howie(R) April 03, 2023 2:46 PM documented in this encounterOhiohealth Southeastern Medical Center01-16-2024 History of Present illness Narrative* [...] 17, 2023 12:07 PM documented in this encounterOhiohealth Southeastern Medical Center11-30-2023 Discharge summary Author Carolina Caba [facility] January 29, 2023 11:47am Note Date/Time January 29, 2023 11:47am [facility] Medical Records Department [address] [place] [address] Transfer to [facility] Care MR#: [id number] Acct: [id number] Name: Margareth GONZALEZ Rep #:[id number] 8 : 1965 57 From: Carolina Caba MD PCP: Dr. Ignacio Cheatham MD Status:ADM I N Certification of patient admission REQUIRED AT TIME OF ADMISSION. I CERTIFY THAT POST-HOSPITAL ECF SERVICES ARE REQUIRED TO BE GIVEN ON AN IN-PATIENT BASIS BECAUSE OF THE ABOVE NAMED PATIENT'S NEED FOR SKILLED NURSING CARE ON A CONTINUING BASIS FOR THE CONDITION(S) FOR WHICH HE/SHE WAS RECEIVING IN-PATIENT HOSPITAL SERVICES PRIOR TO HIS/HER TRANSFER TO THE ECF. 01/29/23 1147<Electronically signed by Carolina Caba MD> Diet Diet Order/Speech Therapy: 01/25/23 13:02 Diet: Renal - ConsCHO - Michael Cont Is pt able to select menu?: Yes How many daily calories?: 2000 calorie Routine Orders/Code Status Enema Type: Fleetz [...] pending precert. Allergies/Procedures Done in Hospital Allergies madhavisam juan Allergy (Unknown, Verified 01/19/23 07:12) UNKNOWN [...] PO Q4H PRN PRN (Reason: Fever, pain -12/09) Qty: 0 0RF docusate sodium [DOK] 100 [...] in before D/C Order can be placed): Snf Facility (4) Anemia Qualifiers: Anemia type: due to chronic kidney disease 11/30/23 1147 <Electronically signed by Carolina Caba MD> Cosigner Signature (if applicable): CC: Dr. Sofía Hill MD; Dr. Mone Riggs MD; Dr. Branden Banks MD; Dr.Steven Garrett MD; Dr. Ignacio Cheatham MD ~ [facility] Work Phone: 1(898) 274-988611-29-2023 Progress note Author [facility] January 28, 2023 4:50pm Note Date/Time January 28, 2023 10:14am [facility] Medical Records Department [address] [place] [address] Progress Note 01/28/23 1009 MR#: [id number] Acct: [id number] Name: Margareth GONZALEZ Rep #:[id number] 8 : 1965 57 From: Carolina Caba MD PCP: Dr. Ignacio Cheatham MD Status:ADM I N Location: [place] [address] Subjective Subjective Patient seen and examined. She [...] 0 Lab / Micro Data 01/28/23 05:50 11/28/23 05:20 Labs: Laboratory Results - last 24 [...] Neut % (Auto) 59.6, Lymph % (Auto)22.5, Pitkin % (Auto) 9.6, Eos % (Auto) 5.0, [...] CN's II-XII intact bilaterally Coordination / Balance: bzlzki-gk-guge test normal Motor Exam: general weakness Psych [...] pending precert. Charges/Coding Visit Charges Inpatient E&M: 77852 Subs Hosp L2 01/28/23 1650 <Electronically signed by Carolina Caba MD> Carolina Caba MD Cosigner Signature (if applicable): CC: ~ Signed [facility] Work Phone: 1(483) 326-325011-29-2023 Progress note Author Maday Lutz tr [facility] January 28, 2023 2:07pm Note Date/Time January 28, 2023 9:53am [facility] Medical Records Department [address] [place] [address] Progress Note - Nephrology 01/28/23 0951 MR#: [id number] Acct: [id number] Name: Margareth GONZALEZ Rep #:[id number] 5 : 1965 57 From: Joseph joshi PRODUCT TECHNOLOGY SCIENTIST-C PCP: Dr. Ignacio Cheatham MD Status:ADM I N Location: [place] [address] Subjective Subjective Resting in bed, no complaints. [...] Neut % (Auto) 59.6, Lymph % (Auto)22.5, Pitkin % (Auto) 9.6, Eos % (Auto) 5.0, [...] dialysis management. ESRD; HD TTS schedule at [facility]. Dialyzed yesterday. No acute indication for SHELLFISH MANAGER today, next dialysis tomorrow. Anemia in chronic kidney disease; monitor hemoglobin trends. Will continue giving JENISE with dialysis Discharge planning in progress to ECF for therapy, waiting for insurance approval. If discharged to ECF today, next dialysis would be tomorrow at [facility]. 01/28/23 0953 <Electronically signed by Joseph KIMBALL> Cosigner Signature (if applicable): 01/28/23 1407 <Electronically signed by Maday Mistry MD> CC: ~ Signed [facility] Work Phone: 1(177) 688-712811-29-2023 Miscellaneous Notes* Telephone Encounter - Sarah Merida Ma - 01/28/2023 12:58 PM EST Received approval for Trulicity 1.5mg from [employer]. Effective 12/29/22 until 01/28/24. CLOSED * Telephone Encounter - Sarah Merida Ma - 01/28/2023 11:26 AM EST PA questionnaire faxed, Transmission ok Keep open * Telephone Encounter - Audra Gonzalez RN - 01/27/2023 3:08 PM EST Received PA forms from [employer] to complete for RX Trulicity. Completed questionnaire. Placed forms and office notes in providers in box for signature and date. Note: Patient has not been seen since 10/02/21. She has scheduled for 03/04/23, but this could impact whether this gets approved as she has not been evaluated. documented in this encounterOhiohealth Southeastern Medical Center11-28-2023 Progress note Author Carolina Caba [facility] January 27, 2023 4:26pm Note Date/Time January 27, 2023 10:05am [facility] Medical Records Department [address] [place] [address] Progress Note 01/27/23 1003 MR#: [id number] Acct: [id number] Name: Margareth GONZALEZ Rep #:[id number] 1 : 1965 57 From: Carolina Caba MD PCP: Dr. Ignacio Cheatham MD Status:ADM I N Location: [place] [address] Subjective Subjective Patient seen and examined. She [...] CN's II-XII intact bilaterally Coordination / Balance: vosbbh-um-vixo test normal Motor Exam: general weakness Psych [...] pending precert. Charges/Coding Visit Charges Inpatient E&M: 64845 Subs Hosp L2 01/27/23 1626 <Electronically signed by Carolina Caba MD> Carolina Caba MD Cosigner Signature (if applicable): CC: ~ Signed [facility] Work Phone: 1([phone]) 752-976911-27-2023 Progress note Author Sofía Hill [facility] January 26, 2023 7:32pm Note Date/Time January 26, 2023 9:00am [facility] Medical Records Department [address] [place] [address] Progress Note - Nephrology 01/26/23854 MR#: [id number] Acct: [id number] Name: Margareth GONZALEZ Rep #:[id number] 2 : 1965 57 From: Joseph joshi PRODUCT TECHNOLOGY SCIENTIST-C PCP: Dr. Ignacio Cheatham MD Status:ADM I N Location: [place] [address] Subjective Subjective Resting in bed. No complaints. [...] (Auto) 81.3 H, Lymph % (Auto)9.4 L, Pitkin % (Auto) 6.3, Eos % (Auto) 2.2, [...] dialysis management. ESRD; HD TTS schedule at [facility]. No acute indication for SHELLFISH MANAGER today. Will plan for dialysis tomorrow. Hyperkalemia; resolved. Dialysis tomorrow on 2K bath Anemia in chronic kidney disease; hemoglobin 8.6 today. Will continue JENISE with dialysis and monitor hgb trends Discharge planning in progress possibly to ECF for therapy 01/26/23 0900 <Electronically signed by Joseph KIMBALL> Cosigner Signature (if applicable): 01/26/231931 <Electronically signed by Sofía Hill MD> CC: ~ Signed [facility] Work Phone: 1(559) 327-104211-27-2023 Progress note Author Carolina Caba [facility] January 26, 2023 4:08pm Note Date/Time January 26, 2023 2:46pm [facility] Medical Records Department [address] [place] [address] Progress Note 01/26/23 1443 MR#: [id number] Acct: [id number] Name: Margareth GONZALEZ Rep #:[id number] 5 : 1965 57 From: Carolina Caba MD PCP: Dr. Ignacio Cheatham MD Status:ADM I N Location: [place] [address] Subjective Subjective Patient seen and examined. She [...] (Auto) 81.3 H, Lymph % (Auto)9.4 L, Pitkin % (Auto) 6.3, Eos % (Auto) 2.2, [...] CN's II-XII intact bilaterally Coordination / Balance: dijnqx-vk-xvei test normal Motor Exam: general weakness Psych [...] on eliquis. Charges/Coding Visit Charges Inpatient E&M: 65530 Subs Hosp L2 01/26/23 1607 <Electronically signed by Carolina Caba MD> Carolina Caba MD Cosigner Signature (if applicable): CC: ~ Signed [facility] Work Phone: [phone]) 421-539711-27-2023 Miscellaneous Notes* Telephone Encounter - Mehreen Caldwell RN - 01/26/2023 2:35 PM EST Did you want to increase dose? NOV: 03/04/23 Attached is 1.5mg Trulicity RX. documented in this encounterOhiohealth Southeastern Medical Center11-26-2023 Progress note Author Branden Banks [facility] January 25, 2023 1:00pm Note Date/Time January 25, 2023 9:29am [facility] Medical Records Department [address] [place] [address] Progress Note - Hospitalist 01/25/23 0929 MR#: [id number] Acct: [id number] Name: Margareth GONZALEZ Rep #:[id number] 3 : 1965 57 From: Branden Booker PCP: Dr. Ignacio Cheatham MD Status:ADM I N Location: [place] [address] Reason for Visit Reason for Visit: Diagnoses [...] % (Auto) 67.2, Lymph % (Auto) 20.0, Pitkin% (Auto) 9.5, Eos % (Auto) 2.7, Baso [...] yesterday. Continue stool softeners. Discussed with the asbestos cloth inspector. Physical exam: General: Alert, Oriented x3, Cooperative [...] 433. Vitamin B12 543. Discussed with the asbestos cloth inspector. She started dialysis about 1 year ago her phosphate and PTH is not very high to warrant or indication of treatment. Bicarb is 26 and patient on sodium bicarbonate. As per asbestos cloth inspector, phosphorusabove 600 might need treatment. 01/22: Patient [...] renal disease on dialysis Thursday, , Thursday: Cabinetmaker Apprentice consulted. -Potassium very slightly elevated at 5.3, repeat potassium 5.4. Patient undergoing hemodialysis. No shortness of breath or hypoxia. 01/22: Hyperkalemia K6.0. No signs of acute hyperkalemia like tenting of T waves or widened QRS complex/sine waves on EKG. Kayexalate given. Discussed with nursing staff to inform asbestos cloth inspector that patient might need dialysis. Shehad only 2.5 hours of dialysis yesterday. 01/23: Patient is still urinates about 500 mL. Potassium is normal after hyperkalemia cocktail and Kayexalate yesterday. No need for hemodialysis. Discussed with the asbestos cloth inspector. 01/24: Electrolytes are in acceptable range. K5.0. [...] low-dose Eliquis. Charges/Coding Visit Charges Inpatient E&M: 10957 Subs Hosp L2 01/25/23 1300 <Electronically signed by Branden Banks MD> Cosigner Signature (if applicable): CC: ~ Signed [facility] Work Phone: 1(220) 845-685511-26-2023 Progress note Author Maday Lutz tr [facility] January 25, 2023 9:52am Note Date/Time January 25, 2023 8:18am [facility] Medical Records Department [address] [place] [address] Progress Note - Nephrology 01/25/23814 MR#: [id number] Acct: [id number] Name: Margareth GONZALEZ Rep #:[id number] 2 : 1965 57 From: Maday chan MD PCP: Dr. Ignacio Cheatham MD Status:ADM I N Location: [place] [address] Subjective Subjective Following for ESRD. The patient [...] % (Auto) 67.2, Lymph % (Auto) 20.0, Pitkin% (Auto) 9.5, Eos % (Auto) 2.7, Baso [...] patient usually dialyzes on TTS schedule at [facility]. is her primary asbestos cloth inspector. The patient is on on Thursday, Thursday, and Saturday dialysis schedule this weekbecause of Thanksgiving holiday. The patient seen during hemodialysis yesterday. She [...] Cosigner Signature (if applicable): CC: ~ Signed [facility] Work Phone: 1(928) 540-293411-25-2023 Progress note Author Branden Banks [facility] January 24, 2023 12:28pm Note Date/Time January 24, 2023 12:21pm [facility] Medical Records Department [address] [place] [address] Progress Note - Hospitalist 01/24/23 1218 MR#: [id number] Acct: [id number] Name: Margareth GONZALEZ Rep #:[id number] 9 : 1965 57 From: Branden Booker PCP: Dr. Ignacio Cheatham MD Status:ADM I N Location: [place] [address] Reason for Visit Reason for Visit: Diagnoses [...] % (Auto) 61.1, Lymph % (Auto) 25.5, Pitkin% (Auto) 9.7, Eos % (Auto) 3.1, Baso [...] not sufficient and adequate. Discussed with the asbestos cloth inspector and orthopedic surgeon. Physical exam: General: Alert, [...] 433. Vitamin B12 543. Discussed with the asbestos cloth inspector. She started dialysis about 1 year ago her phosphate and PTH is not very high to warrant or indication of treatment. Bicarb is 26 and patient on sodium bicarbonate. As per asbestos cloth inspector, phosphorusabove 600 might need treatment. 01/22: Patient [...] renal disease on dialysis Thursday, , Thursday: Cabinetmaker Apprentice consulted. -Potassium very slightly elevated at 5.3, repeat potassium 5.4. Patient undergoing hemodialysis. No shortness of breath or hypoxia. 01/22: Hyperkalemia K6.0. No signs of acute hyperkalemia like tenting of T waves or widened QRS complex/sine waves on EKG. Kayexalate given. Discussed with nursing staff to inform asbestos cloth inspector that patient might need dialysis. Shehad only 2.5 hours of dialysis yesterday. 01/23: Patient is still urinates about 500 mL. Potassium is normal after hyperkalemia cocktail and Kayexalate yesterday. No need for hemodialysis. Discussed with the asbestos cloth inspector. 01/24: Electrolytes are in acceptable range. K5.0. [...] low-dose Eliquis. Charges/Coding Visit Charges Inpatient E&M: 89839 Subs Hosp L2 01/24/23 1228 <Electronically signed by Branden Banks MD> Cosigner Signature (if applicable): CC: ~ Signed [facility] Work Phone: 1(382) 438-248011-25-2023 Progress note Author Maday Lutz tr [facility] January 24, 2023 9:16am Note Date/Time January 24, 2023 9:16am [facility] Medical Records Department [address] [place] [address] Progress Note - Nephrology 01/24/23 0912 MR#: [id number] Acct: [id number] Name: Margareth GONZALEZ Rep #:[id number] 1 : 1965 57 From: Maday chan MD PCP: Dr. Ignacio Cheatham MD Status:ADM I N Location: [place] [address] Subjective Subjective Following for ESRD. Patient seen [...] % (Auto) 61.1, Lymph % (Auto) 25.5, Pitkin% (Auto) 9.7, Eos % (Auto) 3.1, Baso [...] patient usually dialyzes on TTS schedule at [facility]. is her primary asbestos cloth inspector. The patient is on on Thursday, Thursday, [...] week. 01/24/23 0916 <Electronically signed by Maday Misrty MD> Cosigner Signature (if applicable): CC: ~ Signed [facility] Work Phone: 1(235) 577-470411-24-2023 Progress note Author Branden Banks [facility] January 23, 2023 12:25pm Note Date/Time January 23, 2023 12:25pm [facility] Medical Records Department [address] [place] [address] Progress Note - Hospitalist 01/23/23 1203 MR#: [id number] Acct: [id number] Name: Margareth GONZALEZ Rep #:[id number] 2 : 1965 57 From: Branden Booker PCP: Dr. Ignacio Cheatham MD Status:ADM I N Location: [place] [address] Reason for Visit Reason for Visit: Diagnoses [...] (Auto) 71.5 H, Lymph % (Auto)16.9 L, Pitkin % (Auto) 9.3, Eos % (Auto) 1.6, [...] 433. Vitamin B12 543. Discussed with the asbestos cloth inspector. She started dialysis about 1 year ago her phosphate and PTH is not very high to warrant or indication of treatment. Bicarb is 26 and patient on sodium bicarbonate. As per asbestos cloth inspector, phosphorusabove 600 might need treatment. 01/22: Patient [...] renal disease on dialysis Thursday, , Thursday: Cabinetmaker Apprentice consulted. -Potassium very slightly elevated at 5.3, repeat potassium 5.4. Patient undergoing hemodialysis. No shortness of breath or hypoxia. 01/22: Hyperkalemia K6.0. No signs of acute hyperkalemia like tenting of T waves or widened QRS complex/sine waves on EKG. Kayexalate given. Discussed with nursing staff to inform asbestos cloth inspector that patient might need dialysis. Shehad only 2.5 hours of dialysis yesterday. 01/23: Patient is still urinates about 500 mL. Potassium is normal after hyperkalemia cocktail and Kayexalate yesterday. No need for hemodialysis. Discussed with the asbestos cloth inspector. #Type 2 diabetes mellitus: Glucose in BMP [...] low-dose Eliquis. Charges/Coding Visit Charges Inpatient E&M: 13780 Subs Hosp L2 01/23/23 1225 <Electronically signed by Branden Banks MD> Cosigner Signature (if applicable): CC: ~ Signed [facility] Work Phone: 1(443) 634-693111-24-2023 Progress note Author Deshawn Tucker [facility] January 23, 2023 10:15am Note Date/Time January 23, 2023 10:16am [facility] Medical Records Department [address] [place] [address] Progress Note - Orthopedic 01/23/23 1011 MR#: [id number] Acct: [id number] Name: Margareth GONZALEZ ARNOLD Rep #:[id number] : 1965 57 From: Deshawn Booker PCP: Dr. Ignacio Cheatham MD Status:ADM I N Location: [place] [address] Subjective Subjective Patient reports she is doing [...] (Auto) 71.5 H, Lymph % (Auto)16.9 L, Pitkin % (Auto) 9.3, Eos % (Auto) 1.6, [...] with any further questions or concerns. [facility] Office: 01/23/23 1015 <Electronically signed by Deshawn Tucker MD> Cosigner Signature (if applicable): CC: ~ Signed [facility] Work Phone: 1(954) 798-118711-23-2023 Progress note Author Maday Lutz tr [facility] January 22, 2023 6:33pm Note Date/Time January 22, 2023 6:33pm [facility] Medical Records Department [address] [place] [address] Progress Note - Nephrology 01/22/23 1821 MR#: [id number] Acct: [id number] Name: Margareth GONZALEZ Rep #:[id number] : 1965 57 From: Maday chan MD PCP: Dr. Ignacio Cheatham MD Status:ADM I N Location: [place] [address] Subjective Subjective Following for ESRD. Objective Data [...] patient usually dialyzes on TTS schedule at [facility]. is her primary asbestos cloth inspector. The patient is on on Thursday, Thursday, and Thursday dialysis schedule this weekbecause of Thanksgiving holiday. The patient did get partial dialysis yesterday. [...] is currently not on any phosphorus binder. 01/22/231832 <Electronically signed by Maday Mistry MD> Cosigner Signature (if applicable): CC: ~ Signed [facility] Work Phone: 1(137) 435-147711-23-2023 Progress note Author Branden Banks [facility] January 22, 2023 2:21pm Note Date/Time January 22, 2023 2:04pm [facility] Medical Records Department [address] [place] [address] Progress Note - Hospitalist 01/22/23 1356 MR#: [id number] Acct: [id number] Name: Margareth GONZALEZ Rep #:[id number] : 1965 57 From: Branden Booker PCP: Dr. Ignacio Cheatham MD Status:ADM I N Location: [place] [address] Reason for Visit Reason for Visit: Diagnoses [...] Kayexalate given. Discussed with her and the asbestos cloth inspector regarding metabolic bone disease. Patient states her [...] 433. Vitamin B12 543. Discussed with the asbestos cloth inspector. She started dialysis about 1 year ago her phosphate and PTH is not very high to warrant or indication of treatment. Bicarb is 26 and patient on sodium bicarbonate. As per asbestos cloth inspector, phosphorusabove 600 might need treatment. 01/22: Patient had right suprapatellar intramedullary tibial nail. Found to have right pathological transverse proximal tibia extra-articular fracture. #End-stage renal disease on dialysis Thursday, , Thursday: Cabinetmaker Apprentice consulted. -Potassium very slightly elevated at 5.3, repeat potassium 5.4. Patient undergoing hemodialysis. No shortness of breath or hypoxia. 01/22: Hyperkalemia K6.0. No signs of acute hyperkalemia like tenting of T waves or widened QRS complex/sine waves on EKG. Kayexalate given. Discussed with nursing staff to inform asbestos cloth inspector that patient might need dialysis. Shehad only [...] Heparin subcu Charges/Coding Visit Charges Inpatient E&M: 74472 Subs Hosp L2 01/22/23 1404 <Electronically signed by Branden Banks MD> Cosigner Signature (if applicable): CC: ~ Signed ADDENDUM by Dr. Branden Banks MD on 01/22/23 at 1421 Addendum Hyperkalemia: Cabinetmaker Apprentice was informed. Hyperkalemia cocktail ordered per asbestos cloth inspector. Repeat potassium to see any decrease and then will decide about the further plan. 01/22/23 1421<Electronically signed by Branden Banks MD> Cosigner Signature (if applicable): cc: ~* Signed [facility] Work Phone: 1(276) 552-209311-23-2023 Progress note Author Deshawn Tucker [facility] January 22, 2023 8:30am Note Date/Time January 22, 2023 8:30am [facility] Medical Records Department [address] [place] [address] Progress Note - Orthopedic 01/22/2324 MR#: [id number] Acct: [id number] Name: Margareth GONZALEZ Rep #:[id number] : 1965 57 From: Deshawn Booker PCP: Dr. Ignacio Cheatham MD Status:ADM I N Location: [place] [address] Subjective Subjective 57-year-old female postop day 1 [...] Amado Neil MD (Brooks) at 17:06 EST Reading Location ID and State: [facility] / [place] , Service support , Physical Exam Const alert, oriented x3 [...] with any further questions or concerns. [facility] Office: 01/22/23829 <Electronically signed by Deshawn Tucker MD> Cosigner Signature (if applicable): CC: ~ Signed [facility] Work Phone: 1(870) 567-316011-22-2023 Progress note Author Branden Banks [facility] January 21, 2023 3:10pm Note Date/Time January 21, 2023 8:32am [facility] Medical Records Department [address] [place] [address] Progress Note - Hospitalist 01/21/23828 MR#: [id number] Acct: [id number] Name: Margareth GONZALEZ Rep #:[id number] : 1965 57 From: Branden Booker PCP: Dr. Ignacio Cheatham MD Status:ADM I N Location: [place] [address] Reason for Visit Reason for Visit: Diagnoses [...] Neut % (Auto) 56.6, Lymph % (Auto)29.6, Pitkin % (Auto) 11.3 H, Eos % (Auto) [...] most likely due to metabolic bone disease fromESRD. Patient serum calcium is 8.6, phosphorus 5.9, magnesium 2.1. Vitamin D 25 and phosphorus are 83.2 and 5.4 respectively. PTH high 433. Vitamin B12 543. Discussed with the asbestos cloth inspector. She started dialysis about 1 year ago her phosphate and PTH is not very high to warrant or indication of treatment. Bicarb is 26 and patient on sodium bicarbonate. As per asbestos cloth inspector, phosphorusabove 600 might need treatment. #End-stage renal disease on dialysis Thursday, , Thursday: Cabinetmaker Apprentice consulted. -Potassium very slightly elevated at 5.3, [...] Heparin subcu Charges/Coding Visit Charges Inpatient E&M: 71101 Subs Hosp L2 01/21/23 1510 <Electronically signed by Branden Banks MD> Cosigner Signature (if applicable): CC: ~ Signed [facility] Work Phone: 1(546) 646-931611-22-2023 Procedure [facility] 01-21-2023 Consult note Author Sofía Hill [facility] January 21, 2023 7:52am Note Date/Time January 21, 2023 7:53am [facility] Medical Records Department [address] [place], [place] [address] [place] [address] Consultation - Nephrology 01/21/23 1033 MR#: [id number] Acct: [id number] Name: Margareth GONZALEZ [facility] Rep #:[id number] : 1965 57 From: Sofía velasco MD PCP: Dr. Ignacio Cheatham MD Status:ADM I N Location: [place] [address] Assessment & Plan Assessment/Plan (1) ESRD (end [...] last HD yesterday. currently denies any complaints. [facility] Medical History Anxiety and depression Asthma Benign [...] % (Auto) 56.6, Lymph % (Auto) 29.6, Pitkin % (Auto) 11.3 H, Eos % (Auto) [...] Deshawn Tucker MD; Dr.William Linden MD~ Signed [facility] Work Phone: 1(682) 344-317611-21-2023 Consult note Author Deshawn [facility] January 20, 2023 4:19pm Note Date/Time January 20, 2023 4:10pm [facility] Medical Records Department [address] [place] [address] Consultation - Orthopedics 01/20/23 1603 MR#: [id number] Acct: [id number] Name: Margareth GONZALEZ Rep #:[id number] : 1965 57 From: Deshawn Booker PCP: Dr. Ignacio Cheatham MD Status:ADM I N Location: [place] [address] HPI Consult Data Date of Consult: 01/20/23 [...] wasunder the care of Dr. Riggs at [facility] who managed her locally however, he is [...] obtained no significant bony lesions are appreciated. [facility] Medical History Anxiety and depression Asthma Benign [...] Type Severity Reaction Status Date / Time renetta juan Allergy Unknown UNKNOWN Verified 01/19/23 07:12 [...] % (Auto) 54.6, Lymph % (Auto) 30.7, Pitkin % (Auto) 10.0, Eos % (Auto) 3.7, [...] with osteoarthritis in these nonweightbearing films. 01/20/23 1609 <Electronically signed by Deshawn Tucker MD> Cosigner Signature (if applicable): CC: Dr. Sofía Hill MD; Dr. Mone Riggs MD; Dr. Deshawn Tucker MD; Dr.William Linden MD~ Signed [facility] Work Phone: 1(883) 852-707511-21-2023 Progress note Author Branden Banks [facility] January 20, 2023 12:34pm Note Date/Time January 20, 2023 8:01am [facility] Medical Records Department [address] [place] [address] Progress Note - Hospitalist 01/20/23 0755 MR#: [id number] Acct: [id number] Name: Margareth GONZALEZ Rep #:[id number] : 1965 57 From: Branden Booker PCP: Dr. Ignacio Cheatham MD Status:ADM I N Location: [place] [address] Reason for Visit Reason for Visit: Diagnoses [...] 68 L 01/19/23 17:40: POC Glucose 74 11/20/23 22:19: POC Glucose 155 H 01/20/23 04:08: WBC 5.4, RBC 3.02 L, Hgb 9.2 L, Hct 30.4 L, MCV 100.7 H, MCH 30.5, MCHC 30.3 L, RDW Std Deviation 52.1 H, RDW Coeff of Ben 14.3, Plt Count 156, MPV 9.3, Immature Gran % (Auto) 0.400, Neut % (Auto) 54.6, Lymph % (Auto) 30.7, Pitkin % (Auto) 10.0, Eos % (Auto) 3.7, [...] 8:24 EST Reading Location ID and State: [facility] / [place] , Service support , Foot X-Ray 01/19/23 [...] renal disease on dialysis Thursday, , Thursday: Cabinetmaker Apprentice consulted. -Potassium very slightly elevated at 5.3, [...] Heparin subcu Charges/Coding Visit Charges Inpatient E&M: 73020 Subs Hosp L2 01/20/23 1234 <Electronically signed by Branden Banks MD> Cosigner Signature (if applicable): CC: ~ Signed [facility] Work Phone: 1(903) 802-733211-20-2023 Discharge summary Author Yariel Wilks [facility] January 19, 2023 4:10pm Note Date/Time January 19, 2023 7:28am [facility] Medical Records Department [address] [place] [address] Emergency Department Summary 01/19/23 MR#: [id number] Acct: [id number] Name: Margareth GONZALEZ Rep #:[id number] : 1965 57 From: Yariel Wilks DO PCP: Dr. Ignacio Cheatham MD Status:ADM I N Location: [address] History of Present Illness Chief Complaint: Lower [...] pain and she states nobody found anything. [facility] Medical History (Updated 01/19/23 @ 13:50 by [...] Type Severity Reaction Status Date / Time renetta del rosario Allergy Unknown UNKNOWN Verified 01/19/23 07:12 mold [...] % (Auto) 59.5 Lymph % (Auto) 27.1 Pitkin % (Auto) 8.2 Eos % (Auto) 4.1 [...] problems, contact your Primary Care Provider. Call [facility] ([phone]) or report to the closest Emergency Room. Call 911 if necessary. 01/19/23 1610 <Electronically signed by Yariel Wilks DO> Cosigner Signature (if applicable): CC: Dr. Ignacio Cheatham MD ~ Signed [facility] Work Phone: 1(275) 668-904011-20-2023 History and physical note Author Mone Riggs [facility] January 19, 2023 2:01pm Note Date/Time January 19, 2023 1:51pm [facility] Medical Records Department [address] [place] [address] H&P Exam - Hospitalist 01/19/23 1343 MR#: [id number] Acct: [id number] Name: Margareth GONZALEZ Rep #:[id number] : 1965 57 From: Mone Riggs MD PCP: Dr. Ignacio Cheatham MD Status:ADM I N Location: [place] [id number] HPI - General General Date of Admission: 01/19/23 Date of Service: 01/19/23 Chief Complaint: RLE pain HPI Narrative Margareth GONZALEZ, is a 57-year-old female with a history of COPD, type 2 diabetes mellitus, depression, hypertension, end-stage renal disease on dialysis Thursday,, Thursday, neuropathy, and obesity who presented to [facility] 01/19/2023 after a fall with right [...] she has no other new physical complaints. [facility] Medical History (Updated 01/19/23 @ [...] % (Auto) 59.5, Lymph % (Auto) 27.1, Pitkin % (Auto) 8.2, Eos % (Auto) 4.1, [...] documentation, 60minutes Charges/Coding Visit Charges Inpatient E&M: 49912 Init Hosp L2 01/19/23 1401 <Electronically signed by Mone Riggs MD> Cosigner Signature (if applicable): CC: Dr. Mone Riggs MD; Dr. Ignacio Cheatham MD~ Signed [facility] Work Phone: 1(635) 801-464011-20-2023 History and physical note Author Mone Riggs [facility] January 19, 2023 2:01pm Note Date/Time January 19, 2023 1:51pm [facility] Medical Records Department [address] [place] [address] H&P Exam - Hospitalist 01/19/23 1343 MR#: [id number] Acct: [id number] Name: Margareth GONZALEZ Rep #:[id number] : 1965 57 From: Mone Riggs MD PCP: Dr. Ignacio Cheatham MD Status:ADM I N Location: [place] [address] HPI - General General Date of Admission: 01/19/23 Date of Service: 01/19/23 Chief Complaint: RLE pain HPI Narrative Margareth GONZALEZ, is a 57-year-old female with a history of COPD, type 2 diabetes mellitus, depression, hypertension, end-stage renal disease on dialysis Thursday,, Thursday, neuropathy, and obesity who presented to [facility] 01/19/2023 after a fall with right [...] she has no other new physical complaints. [facility] Medical History (Updated 01/19/23 @ [...] Type Severity Reaction Status Date / Time letym juan Allergy Unknown UNKNOWN Verified 01/19/23 07:12 [...] % (Auto) 59.5, Lymph % (Auto) 27.1, Pitkin % (Auto) 8.2, Eos % (Auto) 4.1, [...] documentation, 60minutes Charges/Coding Visit Charges Inpatient E&M: 32507 Init Hosp L2 01/19/23 1401 <Electronically signed by Mone Riggs MD> Cosigner Signature (if applicable): CC: Dr. Mone Riggs MD; Dr. Ignacio Cheatham MD~ Signed [facility] Work Phone: [phone]) 908-811411-20-2023 Miscellaneous Notes* Telephone Encounter - Emmie Poe LPN - 01/19/2023 2:17 PM EST Pt calls to report they are admitting her to [facility]. Pt reports that she is going to need surgery on leg/knee. Pt cancelled appt for Weds with pcp as she will be unavailable. Emmie Poe LPN * Telephone Encounter - Claudette Cordero LPN - 01/15/2023 11:22 AM EST Pt's sister Halle Barragan is calling to let you know she is going to diaylsis and cherry picker operator pt to take her to [facility] ER for the 2nd time this week. Again pt is not able to walk and this time per sister pt issaying it is 3 times worse that it was earlier this week. Sister reports something is going to haveto be done. Pt has an apt on 01-21-23 for her 3 month follow up. Claudette Cordero LPN documented in this encounterOhiohealth [facility]heastern [facility] Center11-20-2023 Discharge summary Author Yariel Wilks [facility] January 19, 2023 4:10pm Note Date/Time January 19, 2023 7:28am [facility] Medical Records Department [address] [place] [address] Emergency Department Summary 01/19/23 MR#: [id number] Acct: [id number] Name: Margareth GONZALEZ Rep #:[id number] : 1965 57 From: Yariel Wilks DO PCP: Dr. Ignacio Cheatham MD Status:ADM I N Location: [address] History of Present Illness Chief Complaint: Lower [...] pain and she states nobody found anything. [facility] Medical History (Updated 01/19/23 @ 13:50 by [...] Type Severity Reaction Status Date / [facility] Allergy Unknown UNKNOWN Verified 01/19/23 07:12 mold [...] % (Auto) 59.5 Lymph % (Auto) 27.1 Pitkin % (Auto) 8.2 Eos % (Auto) 4.1 [...] of the proximal tibial shaft. Electronically Signed: Alejandor Blanchard MD at 8:30 EST , Lower [...] your Primary Care Provider. Call [facility] ([phone]) or report to the closest Emergency Room. Call 911 if necessary. 01/19/23 1610 <Electronically signed by Yariel Wilks DO> Cosigner Signature (if applicable): CC: Dr. 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 States that the short term forms will as of 01/22. halfway can be discussed further at upcoming appt if needed. documented in this encounterOhiohealth Southeastern Medical Center11-14-2023 Discharge summary Author Dakota Cobos [facility] January 13, 2023 2:20pm Note Date/Time January 13, 2023 12:22pm [facility] Medical Records Department [address] [place] [address] Emergency Department Summary 01/13/23 MR#: [id number] Acct: [id number] Name: Margareth GONZALEZ Rep #:[id number] 4 : 1965 57 From: Dakota Cobos [...] tibia stress fracture back in mid September. [facility] Medical History Anxiety and depression Benign essential [...] Type Severity Reaction Status Date / Time renetta juan Allergy Unknown UNKNOWN Verified 01/13/23 12:03 [...] she thinks he comes down here in [facility] also. I recommend she call him tofor [...] dialysis. She states she talk to her asbestos cloth inspector who said she is allowed to have [...] your Primary Care Provider. Call [facility] ([phone]) or report to the closest Emergency Room. Call 911 if necessary. 01/13/23 1420 <Electronically signed by Dakota Cobos MD> Cosigner Signature (if applicable): CC: Dr. Ignacio Cheatham MD ~ Signed [facility] Work Phone: 1(726) 820-162110-16-2023 History of Present illness Narrative* Reagan Riggs MD - 12/15/2022 3:33 PM EDT Reagan Riggs MD Department of Orthopaedics Orthopaedics [address] [facility] [address] Dept: [phone] Dept December 15, 2022 CHIEF COMPLAINT: Follow [...] she wishes to get in with [facility] [place]. He can continue slow and steady activity [...] the knee. Imaging: IMPRESSION: Healing tibia fracture. 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 flash glucose scanning reader (Gripp'n TechSTYLE FESTUS 2 READER) Use to check glucose [...] every 6 hours as needed for pain. Baxygfaa-Nd-Wxs-Fe-FA ( VITAMIN) ORAL Tab Take 1 tablet [...] anxiety) Reagan Riggs MD documented in this encounterOhiohealth Southeastern Medical Center09-28-2023 Miscellaneous Notes* Telephone Encounter - Sarah Zaman Ma - 11/27/2022 4:43 PM EDT Form completed and faxed to [facility]. Confirmation received. Copy sent for scanning. * Telephone Encounter - Sarah Zaman Ma - 11/24/2022 3:40 PM EDT Type of form: Short-term Disability Form received via fax When form is completed, Fax form to [facility] at [phone]. Form has been forwarded to Nurse box for completion. Sarah Zaman Ma documented in this encounterOhiohealth Southeastern Medical Center09-25-2023 Miscellaneous Notes* Telephone Encounter - Karla Bush MA - 11/24/2022 2:11 PM EDT See telephone encounter. Karla Bush MA * Telephone Encounter - Ameena Dumont RN - 11/24/2022 12:32 PM EDT x documented in this encounterOhiohealth Southeastern Medical Center09-21-2023 Miscellaneous Notes* Telephone Encounter - Mackenzie Zamora APRN.NOY - 11/20/2022 6:00 PM EDT Please notify patient that urine culture showed mixture of bacteria which suggests possible contamination upon collection. Advise her to hold the antibiotic and repeat the culture, order placed in chart. Will return to lab tomorrow for repeat culture Mackenzie Zamora APRN.NOY documented in this encounterOhiohealth Southeastern Medical Center09-20-2023 History of Present illness Narrative* Kimberli Saleem APRN.CNP - 11/19/2022 11:44 AM EDT This note was created using NoteWriter. Subjective M Arnold Gonzalez is a 57 year old female. [...] history is provided by the patient. No official court interpreter was used. UTI This is a new [...] Chronic kidney disease Contraceptive management Depression Diabetes ([facility]) Diarrhea DVT, lower extremity ([facility]) 08/2014 Right leg (6) Esophagitis ESRD (end stage renal disease) ([facility]) 07/03/2022 Facial fracture due to fall ([facility]) Fatigue Fibromyalgia Fracture Fracture of shaft of fibula GERD (gastroesophageal reflux disease) HLD (hyperlipidemia) on tricor Hyperlipidemia Hypertension Hypomagnesemia Hypopotassemia IBS (irritable bowel syndrome) Insomnia Intertrigo Knee pain Morbid obesity ([facility]) 03/11/2011 Myalgia Nausea Neck pain Neuropathy [...] daily at bedtime. flash glucose scanning reader (Gripp'n TechSTYLE FESTUS 2 READER) Use to check glucose [...] Take 1 tablet by mouth once daily. Urxmdukx-Mi-Oma-Fe-FA ( VITAMIN) ORAL Tab Take 1 tablet [...] - CEPHALEXIN 250 MG CAPSULE Kimberli Saleem APRN.SALOONKEEPER documented in this encounterOhiohealth Southeastern Medical Center09-18-2023 Miscellaneous Notes* Telephone Encounter - Ignacio Cheatham MD - 11/17/2022 9:36 AM EDT Noted. They are ok. * Telephone Encounter - Claudette Cordero LPN - 11/17/2022 9:17 AM EDT Joseph called to let you know pt was d/c from [facility] at pt's request on . Pt has met partial completion of her goals. Recommendations for safety regarding right leg stress fracture given to make sure she does not over it on on her right leg. Pt is able to get out of the house okay. 1)Pt reported to Joseph that she stopped her Eliquis and also not taking Gabapentin this does not agree with her. 2) There are medication interactions Joseph needed to relay to the office. She sent over a fax medscreening with the following interactions. *Amitriptyline with taking Sertraline *ASA with taking Sertraline *Amitriptyline with taking Labetalol *Omeprazole with taking Ferrous Sulfate *Omeprazole with taking Vitamin. Claudette Cordero LPN documented in this encounterOhiohealth Southeastern Medical Center09-15-2023 Miscellaneous Notes* Telephone Encounter - [...] with update. Thank you. documented in this encounterOhiohealth Southeastern Medical Center09-11-2023 Miscellaneous Notes* Telephone Encounter - Elenita Macario LPN - 11/10/2022 4:50 PM EDT Phoned patient and reviewed message with her. Patient voiced understanding. * Telephone Encounter - Brooke Manning APRN.CNP - 11/10/2022 4:37 PM EDT Let patient know Dr. Cheatham recommend checking with her asbestos cloth inspector first to see if Cymbalta can be used. Lyrica increases risk for falls and sedation. Brooke PodlogRENZO david documented in this encounterOhiohealth Southeastern Medical Center09-11-2023 History of Present illness Narrative* Reagan Riggs MD - 11/10/2022 1:57 PM EDT Reagan Riggs MD Department of Orthopaedics Orthopaedics [address] [facility] [address] Dept: [phone] Dept November 10, 2022 CHIEF COMPLAINT: Established Patient of the Right Knee (Right knee pain - CT scan (09/12/2022), US (10/15/2022) and xray from [facility]) HPI Patient presents with: Right Knee - Established Patient: Right knee pain - CT scan (09/12/2022), US (10/15/2022) and xray from [facility] Patient in today for right knee pain. States it has been going on for some time but got worse 2 weeks ago. Went to [facility] ED and was told to see [...] proximal tibial diaphysis.. Findings suggesting Achilles tendinosis. Seafood Clerk: [facility] H[facility]ITALKa[facility] Transcribe Date/Time: Nov 13 2022 10:44A Dictated [...] Chronic kidney disease Contraceptive management Depression Diabetes ([facility]) Diarrhea DVT, lower extremity ([facility]) 08/2014 Right leg (6) Esophagitis ESRD (end stage renal disease) ([facility]) 07/03/2022 Facial fracture due to fall ([facility]) Fatigue Fibromyalgia Fracture Fracture of shaft of fibula GERD (gastroesophageal reflux disease) HLD (hyperlipidemia) on tricor Hyperlipidemia Hypertension Hypomagnesemia Hypopotassemia IBS (irritable bowel syndrome) Insomnia Intertrigo Knee pain Morbid obesity ([facility]) 03/11/2011 Myalgia Nausea Neck pain Neuropathy [...] daily at bedtime. flash glucose scanning reader (Gripp'n TechSTYLE FESTUS 2 READER) Use to check glucose [...] Take 1 tablet by mouth once daily. Czrwnxvm-Jm-Pxh-Fe-FA ( VITAMIN) ORAL Tab Take 1 tablet [...] requesting physician via US mail. Ignacio Cheatham [address] [facility] [address] Ignacio Cheatham MD [address] [facility] [address] Reagan Riggs MD documented in this encounterOhiohealth Southeastern Medical Center09-08-2023 History of Present illness Narrative* Brooke Manning APRN.SALOONKEEPER - 11/07/2022 12:28 PM EDT 11/07/2022 Patient presents with: ER F/U: [facility] 10/30 for bilateral hand pain SUBJECTIVE: This is a 57 year old that is here today for Above Complaints. HOSPITAL/ER FOLLOW UP: Reason for visit: bilateral hand pain ( per ER record chest pain and right leg swelling) Which facility: [facility] Date of visit: 10/30/2022 Diagnosis: neuropathy [...] Chronic kidney disease Contraceptive management Depression Diabetes ([facility]) Diarrhea DVT, lower extremity ([facility]) 08/2014 Right leg (6) Esophagitis ESRD (end stage renal disease) ([facility]) 07/03/2022 Facial fracture due to fall ([facility]) Fatigue Fibromyalgia Fracture Fracture of shaft [...] daily at bedtime. flash glucose scanning reader ([employer] FESTUS 2 READER) Use to check glucose [...] Take 1 tablet by mouth once daily. Cddccpdv-Cx-Rff-Fe-FA ( VITAMIN) ORAL Tab Take 1 tablet [...] kidney a function - she can ask asbestos cloth inspector about Cymbalta as it looks like this [...] UR - PAIN PANEL, UR QUANT Brooke Podlogar, PLISSE MACHINE OPERATOR HELPER.SALOONKEEPER Prescription instructions reviewed with patient as applicable. [...] which included preparing to see the patient, [id number] patient care, completing clinical documentation, obtaining and/or reviewing separately obtained history, performing a medically appropriate examination, counseling and educating the pat ient/family/caregiver, and ordering medications, tests, or procedures. documented in this encounterOhiohealth Southeastern Medical Center09-05-2023 Miscellaneous Notes* Telephone Encounter - Sury Corral LPN - 11/04/2022 1:37 PM EDT Halle (EC) notified, verbalized understanding. . * Telephone Encounter [...] LPN - 11/01/2022 10:12 AM EDT Pt's sister,leon HOOKSA calling for with concerns of pt's decline [...] into assist living facilities. documented in this encounterOhiohealth Southeastern Medical Center08-21-2023 History of Present illness Narrative* Ignacio Cheatham MD - 10/20/2022 1:56 PM EDT Patient presents with: Hospital F/U HPI: Patient presents today for office visit for hospital follow up. Hospital/[facility] Discharge follow up. Dialysis on , , Sat. Admitted to 09/10 for severe pain in right leg. Work up included ct of spine and leg and MRI of the spine. Had ddd of spine/spinal stenosis. Admitted from there to [facility] That pain is better. No numbness or weakness with bowel or bladder. [facility] ER 10/15/22 stress fracture of the proximal tibia. Was recommended to have MRI. Xray showed ? Tibial stress fracture, however, ortho communications equipment installer was not convinced. Suggested non weight bearing and advised to follow up with ortho for possible mri. She would like to see [facility] ortho instead. This pain is different. Started after doing therapy prior to discharge. [place] something snap in her leg. [facility]rays done at [facility] were negative. Did have bruising as well. Pain is less severe. In [facility] she was placed on eliquis. They had thought she might have a superficial phlebitis on 09/09.She has had duplexes both of which were negative, one at [facility] and one in ER. She has since stopped it. Some dialysis edema post dialysis. No redness or warmth. Red flags for re-assessment reviewed with patient in detail. Would like refills on atarax and zofran. Having increase anxiety. Has a tic everywhere when anxious. She was on the oxycodone and tramadol. Not using currently. She was using baclofen in the past prn at . Discussed can try zanaflex for spasms which [...] Take 1 tablet by mouth once daily. Bupvrzir-Cp-Baq-Fe-FA ( VITAMIN) ORAL Tab Take 1 tablet [...] Chronic kidney disease Contraceptive management Depression Diabetes ([facility]) Diarrhea DVT, lower extremity ([facility]) 08/2014 Right leg (6) Esophagitis ESRD (end stage renal disease) ([facility]) 07/03/2022 Facial fracture due to fall ([facility]) Fatigue Fibromyalgia Fracture Fracture of shaft [...] andsocial history today. REVIEW OF SYSTEMS Request F[employer] alert for her home. All other reviewed [...] TABLET Ignacio Cheatham MD documented in this encounterOhiohealth Southeastern Medical Center08-17-2023 Miscellaneous Notes* Telephone Encounter - Chloe Carpenter LPN - 10/16/2022 10:24 AM EDT Talked to Joseph. Approved visits. She is asking to have med list sent to them after her visit on Thursday. MRI can't be ordered without visit. Patient may need to see ortho to have this completed. * Telephone Encounter - Ignacio Cheatham MD - 10/16/2022 9:42 AM EDT They know more than we do. The [facility] has updated med list. We have not seen her yet. She needs seen for us to order things like that. Ok for orders for them to follow. * Telephone Encounter - Chloe Carpenter LPN - 10/16/2022 9:35 AM EDT Her most recent med list would be [facility] correct? We have not seen her. * Telephone Encounter - Claudette Cordero LPN - 10/16/2022 8:36 AM EDT Joseph with [facility]. PT called to let you know she did the start of for yesterday 10-15-22 for PT. They will see pt 2 times a wee for 4 weeks and then 1 time a week for 3 weeks. Joseph isrequesting : 1) verbal order to have OT come for ADLs and IDLs . She feels pt would benefit from this with bathing, dressing tips for safety and strengthening. 2)requesting a copy of pt's med list be faxed to them for clarification FAX:[phone]. [facility] she is not taking Humalog since she has been home. She is taking Trulicity and Glipizide only for her DM. Dosage needed for how much Glipizide pt should be taking. Pt has not been checking her blood sugar and will start doing this again. No complaints of having high or low blood sugars 3)Pt had stepped down wrong when she was at [facility] during therapy. An x-ray was done not showing and fractures. Last night pt went to [facility] ER right leg pain and pt has a stress fracture ofthe right knee .Pt was complaining of pain with right ankle and foot and Joseph reports pt had swelling and bruising with the ankle and foot when she had seen her earlier. Pt is on a blood thinner. Pt related to Joseph, ER wants pt to have an MRI of right knee to make sure nothing else is going on. Pt would like this to be done at [facility] and ordered by Dr. Cheatham.(Spoke with pt to see where she wanted this done). Please order for pt. Please advise Joseph. Claudette Cordero LPN documented in this encounterOhiohealth Southeastern Medical Center08-10-2023 Miscellaneous Notes* Telephone Encounter - Sury Corral LPN - 10/09/2022 12:36 PM EDT Intake nurse Audra notified. * Telephone Encounter - Ignacio Cheatham MD - 10/09/2022 12:25 PM EDT Ok to do * Telephone Encounter - Georgina Salmon RN - 10/09/2022 11:32 AM EDT Karly Graff calling from [facility] and states they received a PT referral for patient from [facility]. Patient discharged from [facility] on 10/08. Asking if may have verbal order from provider for Physical Therapy? Please call Intake Nurse Audra with reply at [phone]. Thank you. documented in this encounterOhiohealth Southeastern Medical Center08-01-2023 Miscellaneous Notes* Telephone Encounter - [...] EDT Dialysis records received and scanned into [employer]. Call patient's social media strategist, as she just started dialysis, and advise regarding kidney transplant evaluation status, phone number is [phone]. documented in this encounterOhiohealth Southeastern Medical Center07-20-2023 Miscellaneous Notes* Telephone Encounter - Makenna Mullins - 09/18/2022 10:58 AM EDT Cancelled injections and labs in conjunction with injection. Makenna * Telephone Encounter - Veronica Atkinson LPN - 09/18/2022 10:06 AM EDT Preivous phone notes show pt will be starting dialysis at [facility], if so, pt will not need to continue her Retacrit injections here. TC to [facility] to confirm this. She is not cleared to start after she is cleared by Vascular. Bardolph at [facility] states pt is at [facility], she would receive dialysis there at [facility]. Spoke to Lion in that dialysis unit, he says pt has a f/u with vascular on 09/23, then if cleared will start dialysis.She saw Dr Spencer once 12/18/21. Dialysis will cover her with injections. Cancel her injections. documented in this encounterOhiohealth Southeastern Medical Center07-18-2023 Miscellaneous Notes* Telephone Encounter - [...] Disease Management Disposition: Involved in community agencies: [facility]/[place] [phone] & [facility]/[place] Care Team Tab - End: YES Kaylin Carranza RN * Telephone Encounter - Kaylin Carranza RN - 09/16/2022 10:44 AM EDT ----- Message from Sonia Tavares sent at 09/16/2022 10:17 AM EDT ----- Regarding: RE: Pt Update Hi All, [facility] actually has [facility] onsite and their medical research assistant is the same at [facility]. I spoke with DALE Seymour in the dialysis den and he said they will 'transfer' her to [facility] when she is ready to discharge from [facility]. We will also remove her from our list. ThanksSonia ----- Message ----- From: Kaylin Carranza RN Sent: 09/16/2022 10:15 AM EDT To: Efe Villavicencio; Sonia Tavares; Goldy Hunter DO; # Subject: RE: Pt Update Hi all I did an update on Care Everywhere & saw that pt was discharged from [facility] in [place] ([phone]). Her diagnosis was debility - inabilityto care [...] patent. They are working with their own Cabinetmaker Apprentice & plan to start her on dialysis on 09/23/22 there. Dora said the plan is for in-house dialysis. With this being said, I stated, so she won't be needing to keep her chair time that we set up for her at [facility]? Dora confirmed this is not needed. So, go ahead & cancel herso someone else who needs it can get it. I will be removing Arnold from my panel since she is following with another Cabinetmaker Apprentice & her needs are being met at this time. Kaylin Carranza RN ----- Message ----- From: Sonia Tavares Sent: 09/12/2022 1:35 PM EDT To: Efe Villavicencio; Kaylin Carranza RN; Goldy Hunter DO; # Subject: RE: Pt Update Wa all, Efe spoke with Arnold today and Arnold told her she is in hospital and going [place] a [place]. Sheis not sure where, but doesn't know if she will make her vascular appointment on 09/23. We also haveno idea if she started dialysis in the hospital. We think it's [facility]. Not surewhat you would want us to do about this. If she is truly going to a [facility] they should communicate w/ [facility]. Sonia Leyva ----- Message ----- From: Efe Villavicencio Sent: 09/11/2022 10:56 AM EDT To: Sonia Tavares; Kaylin Carranza RN; # Subject: Pt Update Wa, Just wanted to check before contacting pt, was she admitted to [facility]? Efe Leyva documented in this encounterOhiohealth Southeastern Medical Center07-18-2023 Miscellaneous Notes* Telephone Encounter - Efe Villavicencio - 09/16/2022 10:41 AM EDT DIALYSIS PLACEMENT NOTE Planned for pt to start dialysis at [facility] but pt was admitted to [facility] before she could start. Pt will start dialysis onsite at care facility and transfer to [facility] when ready for discharge. Facility: [facility] ([address], [place] [address]) Cabinetmaker Apprentice: Dr. Hill Signature: Efe Villavicencio Patient Name: Margareth Gonzalez Date: September 16, 2022 Time: 10:41 AM documented in this encounterOhiohealth Southeastern Medical Center07-14-2023 Consult note Author Karla Terry [facility] September 12, 2022 12:31pm Note Date/Time September 12, 2022 12:[address] [facility] Medical Records Department [address] [place] [address] Counseling Note - Pharmacy 09/12/22 1231 MR#: [id number] Acct: [id number] Name: Margareth GONZALEZ Rep #:[id number] : 1965 57 From: Karla Terry PCP: Dr. Ignacio Cheatham MD Status:ADM I NO Y Location: [place] [id number] [place] Med Reconciliation Pharmacy Service has performed discharge medication reconciliation for this patient upon transfer to [facility]. The patient's discharge medication list was reviewed [...] Fever, pain 1- 10 #0 tabs 09/11/22 insulin lispro 100 unit/mL [...] Signature (if applicable): Date CC: ~ Signed [facility] Work Phone: 1(474) 406-385707-14-2023 Discharge summary Author Sylvester Ortiz [facility] September 12, 2022 11:46am Note Date/Time September 12, 2022 11:4 6am [facility] Medical Records Department [address] [place] [address] Discharge Summary 09/12/22 1143 MR#: [id number] Acct: [id number] Name: Margareth GONZALEZ Rep #:[id number] : 1965 57 From: Sylvester Ortiz DO PCP: Dr. Ignacio Cheatham MD Status:ADM I NO Location: [facility] [id number] Providers Date of Admission: 09/10/22 Primary Care [...] repeat in a.m. if able, follows with [facility] nephrology. * Chronic COPD/asthma: From current list [...] Heparin. CODE status: Full code. Disposition: to [facility] Medications at Discharge Home Medications cholecalciferol (vitamin [...] Additional Instructions / Restrictions: [facility] Discharge Orders/Prescriptions Prescriptions: New [...] in before D/C Order can be placed): [facility] Facility Charges/Coding Visit Charges Inpatient E&M: 82324 Disch Hosp >30min 09/12/22 1146 <Electronically signed by Sylvester Ortiz DO> Cosigner Signature (if applicable): CC: Dr. Sylvester Ortiz DO; Dr. Ignacio Cheatham MD~ Signed [facility] Work Phone: 1(193) 710-860907-14-2023 Progress note Author Sylvester Ortiz [facility] September 12, 2022 9:15am Note Date/Time September 12, 2022 7:53 am [facility] Medical Records Department [address] [place] [address] Progress Note - Hospitalist 09/12/22 0752 MR#: [id number] Acct: [id number] Name: GONZALEZMargareth ARNOLD Rep #:[id number] : 1965 57 From: Sylvester Ortiz DO PCP: Dr. Ignacio Cheatham MD Status:ADM I NO Location: [facility] EO256-8 Reason for Visit Reason for Visit: Diagnoses [...] repeat in a.m. if able, follows with [facility] nephrology. * Chronic COPD/asthma: From current list [...] Heparin. CODE status: Full code. Disposition: to [facility] pending CT Charges/Coding Visit Charges Inpatient E&M: 16832 Subs Hosp L1 09/12/22 0915 <Electronically signed by Sylvester Ortiz DO> Cosigner Signature (if applicable): CC: ~ Signed [facility] Work Phone: 1(458) 513-364007-13-2023 Discharge summary Author Sylvester Ortiz [facility] September 11, 2022 10:45am Note Date/Time September 11, 2022 10:3 9am [facility] Medical Records Department [address] [place] [address] Transfer to Extended Care MR#: [id number] Acct: [id number] Name: Margareth GONZALEZ Rep #:[id number] : 1965 57 From: Sylvester Ortiz DO PCP: Dr. Ignacio Cheatham MD Status:ADM I NO Certification of patient admission REQUIRED AT TIME OF ADMISSION. I CERTIFY THAT POST-HOSPITAL ECF SERVICES ARE REQUIRED TO BE GIVEN ON AN IN-PATIENT BASIS BECAUSE OF THE ABOVE NAMED PATIENT'S NEED FOR SKILLED NURSING CARE ON A CONTINUING BASIS FOR THE CONDITION(S) FOR WHICH HE/SHE WAS RECEIVING IN-PATIENT HOSPITAL SERVICES PRIOR TO HIS/HER TRANSFER TO THE F. 09/11/22 1045<Electronically signed by Sylvester Ortiz DO> [...] repeat in a.m. if able, follows with [facility] nephrology. * Chronic COPD/asthma: From current list [...] Heparin. CODE status: Full code. Disposition: to [facility] pending insurance authorization. Allergies/Procedures Done in Hospital [...] Additional Instructions / Restrictions: [facility]. Discharge Orders/Prescriptions Prescriptions: New [...] in before D/C Order can be placed): [facility] Facility 09/11/22 1045 <Electronically signed by Sylvester Ortiz DO> Cosigner Signature (if applicable): CC: Dr. Lizzy Bragg MD; Dr. Ignacio Cheatham MD ~ [facility] Work Phone: 1(517) 523-880707-13-2023 Progress note Author Sylvester Ortiz [facility] September 11, 2022 10:37am Note Date/Time September 11, 2022 8:45 am [facility] Medical Records Department [address] [place] [address] Progress Note - Hospitalist 09/11/22 0842 MR#: [id number] Acct: [id number] Name: LISAMargareth ARNOLD Rep #:[id number] : 1965 57 From: Sylvester Ortiz DO PCP: Dr. Ignacio Cheatham MD Status:ADM I NO Location: [facility] JE053-6 Reason for Visit Reason for Visit: Diagnoses [...] repeat in a.m. if able, follows with [facility] nephrology. * Chronic COPD/asthma: From current list [...] Heparin. CODE status: Full code. Disposition: to [facility] pending insurance authorization. Charges/Coding Visit Charges Inpatient E&M: 18521 Subs Hosp L1 09/11/22 1037 <Electronically signed by Sylvester Ortiz DO> Cosigner Signature (if applicable): CC: ~ Signed [facility] Work Phone: [phone]) 984-239407-13-2023 Miscellaneous Notes* Telephone Encounter - Ana Foley [...] day presented to Emergency Room 1014am If Thu-Thursday during business hours: Did you contact your Beam Worker/Provider? No FOLLOW UP: Patient started on Eliquis and has follow up scheduled with vascular 09/23/22 Ana Foley RN documented in this encounterOhiohealth Southeastern Medical Center07-12-2023 Progress note Author Sylvester Ortiz [facility] September 10, 2022 1:59pm Note Date/Time September 10, 2022 8:05 am [facility] Medical Records Department [address] [place] [address] Progress Note - Hospitalist 09/10/22 0757 MR#: [id number] Acct: [id number] Name: Margareth GONZALEZ Rep #:[id number] : 1965 57 From: Sylvester Ortiz DO PCP: Dr. Ignacio Cheatham MD Status:ADM I NO Location: [facility] PF021-4 Reason for Visit Reason for Visit: Diagnoses [...] % (Auto) 62.0, Lymph % (Auto) 25.2, Pitkin % (Auto) 8.6, Eos % (Auto) 3.1, [...] % (Auto) 66.3, Lymph % (Auto) 22.2, Pitkin% (Auto) 8.3, Eos % (Auto) 2.3, Baso [...] repeat in a.m. if able, follows with [facility] nephrology. * Chronic COPD/asthma: From current list [...] Full code. Charges/Coding Visit Charges Inpatient E&M: 92550 [facility] Hosp L2 09/10/22 5389 <Electronically signed by Sylvester Ortiz DO> Cosigner Signature (if applicable): CC: ~ Signed [facility] Work Phone: 1(931) 280-436607-12-2023 Miscellaneous Notes* Telephone Encounter - Fab Cochran APRN.NOY - 09/10/2022 11:15 AM EDT Called Bernie Morse to confirm ok for midline for medication administration They are required to get nephrology approval based on her labs. Advised line must be to the R arm and not in L asshe has maturing fistula to L. They are aware. Do not anticipate need for PICC or IJ at this time. * Telephone Encounter - aCrissa Villalobos - 09/10/2022 11:10 AM EDT [facility] phoned req ok for line placement slot at 12:30 Call [phone] Bernie Cochran Paged documented in this encounterOhiohealth Southeastern Medical Center07-12-2023 Miscellaneous Notes* Telephone Encounter - Mago Nicholas - 09/10/2022 10:37 AM EDT Sent [facility] message to schedule follow up * Telephone [...] advise. La Adler MA documented in this encounterOhiohealth Southeastern Medical Center07-12-2023 Discharge summary Author Minh Arroyo [facility] September 10, 2022 3:48am Note Date/Time September 10, 2022 3:07 am [facility] Medical Records Department [address] [place] [address] Emergency Department Summary 09/10/22 MR#: [id number] Acct: [id number] Name: Margareth GONZALEZH Rep #:[id number] : 1965 57 From: Minh Arroyo DO PCP: Dr. Ignacio Cheatham MD Status:ADM I NO Location: [facility] YN294-6 HPI History of Present Illness Chief Complaint: [...] to the ERfor potential [place] and [place] based on her worsening pain and inability to care for self. Patient does states she had x-rays of her right knee which revealed no acute findings and an ultrasound of her right leg which revealed superficial venous thrombus but no deep vein thrombosis PFSH [facility] Medical History (Updated 09/10/22 @ [...] % (Auto) 62.0 Lymph % (Auto) 25.2 Pitkin % (Auto) 8.6 Eos % (Auto) 3.1 [...] 15-29 ml/min) Disposition Disposition: Acute Care Hospital [facility] What to do if you have Problems For any increased pain, shortness of breath, bleeding, nausea or vomiting, chestpain, or any unexpected problems, contact your Primary Care Provider. Call [facility] ([phone]) or report to the closest Emergency Room. Call 911 if necessary. 09/10/22 0348 <Electronically signed by Minh Arroyo DO> Cosigner Signature (if applicable): CC: Dr. Ignacio Cheatham MD ~ Signed [facility] Work Phone: 1(436) 789-747907-12-2023 History and physical note Author Lizzy Bragg [facility] September 10, 2022 2:13am Note Date/Time September 10, 2022 12:4 5am [facility] Medical Records Department [address] [place] [address] H&P Exam - Hospitalist 09/10/22 0043 MR#: [id number] Acct: [id number] Name: Margareth GONZALEZ ARNOLD Rep #:[id number] : 1965 57 From: Lizzy Bragg [...] recent AVF graft infection with hospitalization at [facility] with surgery and abx therapy following with [facility] nephrology, Diabetes mellitus type II w/ chronic neuropathy, Fibromyalgia, HTN, HLD, Chronic normocytic anemia who presents to the [facility] EDon 09/10/22 with history of ongoing [...] issues with one of her AV grafts. [facility] Medical History (Updated 09/10/22 @ 02:09 by [...] recent AVF graft infection with hospitalization at [facility] with surgery and abx therapy following with [facility] nephrology, Diabetes mellitus type II w/ chronic neuropathy, Fibromyalgia, HTN, HLD, Chronic normocytic anemia who presents to the [facility] ED on 09/10/22 with history of [...] repeat in a.m. if able, follows with [facility] nephrology. #4. Chronic COPD/asthma: From current list [...] Patient does not have healthcare power of senior trial attorney or living will in place but [...] 60 minutes. Charges/Coding Visit Charges Inpatient E&M: 90307 Init Hosp L2 Procedures Hospitalists Procedures: 35604 Advncd Care Plan 30 Min 09/10/22 0213 <Electronically signed by Lizzy Bragg MD> Cosigner Signature (if applicable): CC: Dr. Lizzy Bragg MD; Dr. Ignacio Cheatham MD~ Signed [facility] Work Phone: 1(812) 332-182307-11-2023 History of Present illness Narrative* Ignacio Cheatham MD - 09/09/2022 4:11 PM EDT Patient presents with: ER F/U HPI: Patient presents today for office visit for ER follow up. Seen in [place] [facility] today. Right knee pain with swelling. [...] on dialysis, discussed with vascular Dr. Jackson. Bruce for Eliquis for 45 days, has follow-up [...] mouth once daily. flash glucose scanning reader (Awareness CardYLE FESTUS 2 READER) Use to check glucose 3 times daily and continuously. 1 per year. flash glucose sensor (Gripp'n TechSTYLE FESTUS 2 SENSOR) kit Use to check [...] Take 1 tablet by mouth once daily. Mosfhthw-Dy-Dhj-Fe-FA ( VITAMIN) ORAL Tab Take 1 tablet [...] Chronic kidney disease Contraceptive management Depression Diabetes ([facility]) Diarrhea DVT, lower extremity ([facility]) 08/2014 Right leg (6) Esophagitis ESRD (end stage renal disease) ([facility]) 07/03/2022 Facial fracture due to fall ([facility]) Fatigue Fibromyalgia Fracture Fracture of shaft of fibula GERD (gastroesophageal reflux disease) HLD (hyperlipidemia) on tricor Hyperlipidemia Hypertension Hypomagnesemia Hypopotassemia IBS (irritable bowel syndrome) Insomnia Intertrigo Knee pain Morbid obesity ([facility]) 03/11/2011 Myalgia Nausea Neck pain Neuropathy [...] up to rule out occult fracture. To [facility]. Er passport generated. 2. Superficial phlebitis of right leg - ICD9: 451.0, ICD10: I80.01 3. Type 2 diabetes, controlled, with neuropathy (HCC) - ICD9: 250.60, 357.2, ICD10: E11.40 4. Essential hypertension - ICD9: 401.9, ICD10: I10 Ignacio Cheatham MD documented in this encounterOhiohealth Southeastern Medical Center07-09-2023 Discharge summary Author Quentin Kim [facility] September 07, 2022 2:51pm Note Date/Time September 07, 2022 2:04p [facility] Medical Records Department [address] [place] [address] Emergency Department Summary 09/07/22 MR#: [id number] Acct: [id number] Name: Margareth GONZALEZ Rep #:[id number] : 1965 57 From: Quentin Disla PCP: Dr. Ignacio Cheatham MD Status:REG E R Location: ED [facility] <BREANNA Cleary - Last Filed: 09/07/22 [...] Denies chest pain or shortness of breath. [facility] <BREANNA Cleary - Last Filed: 09/07/22 14:46> [facility] Medical History Fibromyalgia Neuropathy Home Medications cholecalciferol [...] <BREANNA Cleary - Last Filed: 09/07/22 14:46> [facility] MDM Narrative Medical decision making narrative: Patient [...] She was given an Hannah wrap and Deputy for pain control and discharged in stable condition. Differential: Leg fracture, ligamentous or meniscal injury, arthritis, DVT, among others Attending note: Patient seen and evaluated with cement truck loader. I perform my own kddd-xs-vsgv evaluation. I agree with the plan of [...] 14:36 EDT Reading Location ID and State: [facility] / [place] , Service support , ED attending interpretation of right knee x-ray shows no acute fracture or dislocation. <Dr. Quentin Kim, DO - Last Filed: 09/07/22 14:51> [facility] MDM Narrative Medical decision making narrative: Patient [...] She was given an Hannah wrap and Deputy for pain control and discharged in stable condition. Differential: Leg fracture, ligamentous or meniscal injury, arthritis, DVT, among others Attending note: Patient seen and evaluated with cement truck loader. I perform my own ffsf-oe-kkae evaluation. I agree with the plan of [...] 14:36 EDT Reading Location ID and State: [facility] / [place] , Service support , Discharge Plan Triage [...] DAILY Elavil 1 tab PO DAILY vit no.[id number] [ Vitamin] 1 EACH tablet 1 ea PO DAILY insulin lispro 100 UNIT/ML solution 10 unit SQ DAILY Other Ambulatory Orders: Venous Duplex US, Unilateral (Stat) Facility: [facility] - Location: [facility] Ordered By: Efra Stallworth Primary Care [...] problems, contact your Primary Care Provider. Call [facility] ([phone]) or report to the closest Emergency Room. Call 911 if necessary. 09/07/22 1451 <Electronically signed by Quentin Disla> Cosigner Signature (if applicable): 09/07/22 1446 <Electronically signed by Efra CARLOS> CC: Dr. Ignacio Cheatham MD ~ Signed [facility] Work Phone: 1(135) 132-435707-05-2023 History of Present illness Narrative* Kaylin Carranza RN - 09/03/2022 10:56 AM EDT Optimal Transition Program - CC Collaboration Chronic Kidney Disease stage 5: Yes [...] office if your blood pressure is less ivsg572/70 or higher than 150/90 -Recommend HgbA1c of [...] We discussed importance of keeping this appt. cruise coordinator contacted: yes: Has been placed @ [facility] in [facility] Hepatitis panel obtained: yes, 08/26/22 Chest x-ray obtained: yes: 08/26/22 Med reconciliation completed: No Medication prior authorizations: Not applicable Reviewed symptoms of uremia - none other than chronic fatigue, nausea & some wt loss. States nochanges. Beam Worker plan for next outreach: Will follow up prn. Kaylin Carranza RN September 03, 2022 11:00 AM documented in this encounterOhiohealth Southeastern Medical Center06-28-2023 Miscellaneous Notes* Telephone Encounter - [...] AM EDT To: Goldy Hunter DO, Fab Cochran, PATRICE.SALOONKEEPER Subject: AVF I saw you both made a billing encounter for Arnold yesterday. Sonia Tavares set up placement for her @ a dialysis unit in [place], close to her home but has notyet informed Arnold because she was waiting for Vascular to confirm the AVF is ready for use. I don'tsee any notes from her Vascular appt yesterday. I'm not sure she kept her appt. Do either of you know her status with this? Kaylin documented in this encounterOhiohealth Southeastern Medical Center06-22-2023 History of Present illness Narrative* [...] 21, 2022 11:15 AM documented in this encounterOhiohealth Southeastern Medical Center06-22-2023 Nurse Note* Veronica Atkinson LPN - 08/21/2022 11:04 AM EDT Retacrit injection deferred. Pt did not meet treatment parameters. Hgb 10.2 Veronica Atkinson LPN documented in this encounterOhiohealth Southeastern Medical Center06-21-2023 Miscellaneous Notes* Telephone Encounter - Kaylin Carranza RN - 08/20/2022 3:18 PM EDT Sonia Carranza RN; Efe Villavicencio Sounds good! Efe spoke with her. We are going to get a referral sent through [facility] admissions [facility]. Thanks, Sonia * Telephone Encounter - Kaylin Carranza RN - 08/20/2022 2:51 PM EDT Pt returned my call. Informed her of need to have Hep B panel & cxr completed. States that she plans to have other labs drawn tomorrow as well so she will do both then. Encouraged to call [facility] to schedule cxr but pt states [...] addressed. Kaylin Carranza RN documented in this encounterOhiohealth Southeastern Medical Center06-06-2023 History of Present illness Narrative* Kaylin Carranza RN - 08/05/2022 11:54 AM EDT Patient Identified by name and : Yes Spoke to patient OTP Renal Anemia HGB <10.0 g/dl: Yes, follow decision tree below. History of Cancer, DVT, or Stroke: No, Anemia referral: Yes - following with Heme/Onc - [place]. OTP TRANSPLANT EVALUATION Patient interested in Ktx?: [...] Discussed with Provider timing of initiation: Yes cruise coordinator contacted: Yes cruise coordinator initiated placement process: No Remote Hepatitis [...] applicable Vaccination status: completed Referral placement: Yes Beam Worker plan for next outreach: Will follow up [...] AVF site. Concerns: None at this time. Beam Worker plan for next outreach: Will follow up prn. Signature Kaylin Carranza RN August 05, 2022 documented in this encounterOhiohealth Southeastern Medical Center06-06-2023 Miscellaneous Notes* Telephone Encounter - [...] to be able to get in to [facility] in [place]. Please let me know. Thanks, Kaylin. documented in this encounterOhiohealth Southeastern Medical Center06-06-2023 History of Present illness Narrative* Chrissy Cheng RN - 08/05/2022 10:17 AM EDT TCM Home Visit Referral Source of Stratification: [facility] Admission Status: Discharged Readmission Risk Score: 33 DEANDRA Score: 17 Patient meets program referral criteria: No Patient does not qualify for High Risk TCM Home Visit program due to: Discharged home, does not meet program criteria TRANSITIONAL CARE MANAGEMENT (TCM) COMMUNITY MONITORING PROGRAM Provider Action/FYI: Left arm incision SANIA Mild edema to incision site Denies pain [...] Network Status: In-Network Discharge Pt discharged from [facility] on 08/04/2022. Admitted for: surgical site infection left arm Contact made with patient: Yes Hi my name is Chrissy Cheng RN and I am calling from the [facility] on behalf of your PCP, [...] like to speak with a social work steam and gas turbine assembler to help give you support for any [...] I will send your request to a surgery scheduler who will contact and assist you [...] MONIKA Education Ordered -: No Hazel BRAUN., corporate services manager Clerk Typist [phone] documented in this encounterOhiohealth Southeastern Medical Center06-06-2023 History of Present illness Narrative* Lauren Bello formerly [facility] - 08/05/2022 7:44 AM EDT TRANSITION CARE MANAGEMENT (TCM) PHARMACY CONTACT Provider Action/FYI: Unable to reach patient after unsuccessful outreach attempt. Left voicemail for patient including call back number to TCM pharmacist. TCM medication reconciliation incomplete at this time Patient unable to be reached after unsuccessful outreach attempt(s). No further attempts to contactpatient will be made. SUMMARY: -Pt discharged from [facility] on 08/04/22. -Medication review not done [...] Active Problems: Anemia, unspecified Bipolar disorder, unspecified ([facility]) Essential hypertension Type 2 diabetes mellitus with stage 4 chronic kidney disease, without long-term current use of insulin ([facility]) GERD (gastroesophageal reflux disease) Type 2 diabetes, controlled, with neuropathy ([facility]) ESRD (end stage renal disease) ([facility]) Resolved Problems: Acute gastritis OPERATIONS PERFORMED [...] days. Confirmed fills on medication dispense history. [facility] [address] [place] [id number] - [phone] [facility] [phone] 1812 cephALEXin hydrOXYzine HCl sulfamethoxazole-trimethoprim cholecalciferol (VITAMIN [...] no medication dispense history for this medication. Gecshycz-Oy-Dzy-Fe-FA ( VITAMIN) ORAL Tab Take 1 tablet [...] fills on medication dispense history. Preferred pharmacy: [facility] [address] [place] [address] [place] [address] [facility] [address] [place] [address] Estimated Creatinine Clearance: 16.5 mL/min (A) (based on SCr of 4.79 mg/dL (H)). Estimated Glomerular Filtration Rate (mL/min/1.73m ) Date Value 08/04/2022 10 (L) eGFR- (no units) Date Value 03/27/2021 20 Additional follow up: Next 5 Appointments Date and Time Provider Department Dept Phone 08/08/2022 2:15 PM [facility] MOB [phone] 08/08/2022 2:45 PM [facility] [phone] 08/11/2022 8:40 AM Ignacio AVILAP [facility] [phone] 08/22/2022 2:15 PM LAB [facility] MOB LAB [facility] MOB [phone] 08/22/2022 2:45 PM Injection Iam [facility] IAM [facility] [phone] Interventions Made: None Pharmacist Recommendations Made None Care Coordination: None at this time Time spent on patient: 15-30 minutes Lauren Bello PharmD, formerly [facility] Transitional Care Management August 05, 2022 2:53 PM documented in this encounterOhiohealth Southeastern Medical Center06-01-2023 Miscellaneous Notes* Telephone Encounter - Marie Pete - 07/31/2022 3:08 PM EDT Spoke with patient, she is currently at [facility] waiting to be seen. She did not want to go to [place] tomorrow, so she's going to stay at the ED and is scheduled to see [facility] on Thursday, 08/05. * Telephone Encounter - Marieneeraj Pete - 07/31/2022 10:39 AM EDT Patient left a message stating her arm is swollen and discolored and that was advised to be seen sooner by [facility]. Left patient a message to call us back to [facility] documented in this encounterOhiohealth [facility]heastern Medical Center06-01-2023 History of Past illness Narrative* [...] of this encounter (statuses as of 04/04/2023) [facility]06-01-2023 History of Past illness Narrative* [...] of this encounter (statuses as of 04/06/2023) [facility]06-01-2023 History of Past illness Narrative* [...] Overview: [facility] Henderson Acute gastritis 12/16/2007 08/04/2022 Overview: EGD with minimal gastritis, negative H Pylori 12/07 documented as of this encounter (statuses as of 04/14/2023) [facility]06[facility] History of Past illness Narrative* [...] of this encounter (statuses as of 05/01/2023) [facility]06-01-2023 History of Past illness Narrative* [...] 18 Overview: [facility] Dr[facility] Henderson Acute gastritis 12/16/2007 08/04/2022 Overview: EGD with minimal gastritis, negative H Pylori 12/07 documented as of this encounter (statuses as of 05/17/2023) [facility] History of Past illness Narrative* [...] of this encounter (statuses as of 05/18/2023) [facility]06-[facility] History of Past illness Narrative* [...] of this encounter (statuses as of 05/21/2023) [facility]06-[facility]23 History of Past illness Narrative* [...] of this encounter (statuses as of 06/11/2023) [facility]06-[facility]23 History of Present illness Narrative* Sha Ray APRN.NOY - 07/31/2022 10:11 AM EDT Nontoxic-appearing female [...] agrees with plan of care. Sha Ray APRN.NOY documented in this encounterOhiohealth Southeastern Medical Center05-25-2023 NoteHNO ID: [id number] Author: Audra Bell RN Service: ? Author Type: Registered Nurse Type: Nursing Progress Note Filed: 07/24/2022 12:03 PM Note Text: 1200 pt given written and verbal dc instructions. Pt verbalized understanding.[facility] [id number] NoteHNO ID: [id number] Author: Jose D Camargo APRN.CRNA Service: Anesthesiology Author Type: Nurse Web Retailer Type: Anesthesia Procedure Notes Filed: 07/24/2022 8:43 AM Note Text: ANESTHESIOLOGY PROCEDURE NOTE Airway General Information Procedure Start Time/Medication Administration: 07/24/2022 8:19 AM Patient location during procedure: OR Patient identity confirmed: arm band, care steam and gas turbine assembler and patient Staffing Anesthesiologist: Rashid Grace MD BRIDAL STYLIST SALES CONSULTANT: Jose D Camargo APRN.BRIDAL STYLIST SALES CONSULTANT Performed by: BRIDAL STYLIST SALES CONSULTANT Indications and Patient Condition Indications for airway [...] intact post intubation. SIGNATURE: Jose D Camargo APRN.BRIDAL STYLIST SALES CONSULTANT PATIENT NAME: Margareth Gonzalez DATE: July 24, 2022 TIME: 8:41 AM CSN: [id number] History and physical note* Jess Oconnor APRN.SALOONKEEPER - 06/30/2022 3:39 PM EDT Images from the original note were not included. HISTORY AND PHYSICAL EXAMINATION SERVICE DATE: 06/30/2022 SERVICE TIME: 1:50 PM PRIMARY CARE PHYSICIAN: Ignacio Cheatham MD REASON FOR VISIT: Margareth Gonzalez is a 57 year old female who is scheduled for Procedure(s) with comments: CREATION FISTULA ARTERIOVENOUS EXTREMITY UPPER (Left) - NO BELLPERSON NEEDED at the request of Dr. Jonathan [...] COVID-19 booster vaccine, age 12+ yr, bivalent ([employer]) 08/15/2020 Outside Immunization: COVID-19, mRNA, LNP-S, PF, [...] fevers. Neurological: No history of TIA's, stroke, REVIEW RN tumor, impaired sensorium, hemiplegia, paraplegia orquadraplegia. No neurological symptoms or problems. Respiratory: +former smoker Positive for: obstructive sleep apnea and CPAP/BiPAP noncompliant. Negative for: asthma, COPD, pneumonia within 6 weeks, tobacco use and URI < 2 weeks. Cardiovascular: Positive for: anticoagulation therapy (ASA), DVT/PE, hyperlipidemia and hypertension Negative for: arrhythmia, atrial fibrillation, CAD, chest pain, CHF, congenital heart defect, recent TN, murmur/valvular heart disease, open heart surgery and valve surgery. GI: +gastric bypass Positive for: GERD (on rx) and nausea Negative for: abdominal pain, dysphagia, irritable bowel syndrome, inflammatory bowel disease, liver disease, pancreatitis, vomiting and ETOH >2 drinks/day. : Positive for: renal failure. Patient's renal failure is chronic. Negative for: nephrolithiasis and urinary tract infection. MANAGER SAFE: Negative for abnormal vaginal bleeding, abnormal vaginal [...] (6) Esophagitis ESRD (end stage renal disease) ([facility]) 07/03/2022 Facial fracture due to fall ([facility]) Fatigue Fibromyalgia Fracture Fracture of shaft of fibula GERD (gastroesophageal reflux disease) HLD (hyperlipidemia) on tricor Hyperlipidemia Hypertension Hypomagnesemia Hypopotassemia IBS (irritable bowel syndrome) Insomnia Intertrigo Knee pain Morbid obesity ([facility]) 03/11/2011 Myalgia Nausea Neck pain Neuropathy [...] daily. Taking Yes flash glucose scanning reader (FREESTYLE FESTUS 2 [...] 1 tablet by mouth once daily.Taking Yes Gnoxugdy-Xg-Asw-Fe-FA ( VITAMIN) ORAL Tab Take 1 tablet [...] 368 QTC Calculation (Bazett) 457 Calculated P [place] 67 Calculated R [place] 20 Calculated T [place] 63 Impression NORMAL SINUS RHYTHM NORMAL ECG Confirmed by MODESTO GOODMAN M.D. ([id number]) on 08/21/2021 4:13:04 PM Recent Results (from the past 89531 hour(s)) ECHO Collection Time: 08/15/21 3:12 PM [...] by hematology ESRD (end stage renal disease) ([facility]) Assessment: slowly trending down Creatinine Date Value [...] the daytime Non-male patient STOP-Bang Score: 6 [id number] Score: Age: <65 Sex: female CHF history: No Hypertension history: Yes Stroke/TIA/thromboembolism history: Yes Vascular disease history: No Diabetes history: Yes [id number] Score: 5 ARISCAT Score: Age: 51-80 Preoperative [...] and consent discussed: yes. Patient / Responsible Libertarian agrees to proceed: yes Patient / Surrogate [...] 3:39 PM PAGER/CONTACT #: documented in this encounterOhiohealth Southeastern Medical Center05-01-2023 Instructions* Patient Instructions* Jess Oconnor APRN.CNP - 06/30/2022 3:39 PM EDT PATIENT PREOPERATIVE INSTRUCTIONS Jonathan Valenzuela* has scheduled you for your procedure at this surgery center: [facility]: [phone] --[phone] [address]. Please check in on the1st floor at [...] Procedures: - YOU MUST HAVE A RESPONSIBLE CARBON DIOXIDE OPERATOR TAKE YOU HOME. A ZINC MINER OR CATALOG LIBRARIAN CANNOT BE MADE A RESPONSIBLE CARBON DIOXIDE OPERATOR. - We recommend that a responsible person [...] Advance Directive, please fax a copy to [phone] or email to for it to be [...] into your chart that day. Jess Oconnor APRN.SALOONKEEPER documented in this encounterOhiohealth Southeastern Medical Center04-26-2023 Miscellaneous Notes* Telephone Encounter - Nivia Fuentes Adm - 06/25/2022 1:37 PM EDT Patient phones requesting refills as follows: Requested Prescriptions Pending Prescriptions Disp Refills calcitriol (ROCALTROL) 0.25 mcg capsule 180 capsule 0 Sig: Take 2 capsules by mouth once daily. Please review and advise. Nivia Fuentes Adm documented in this encounterOhiohealth Southeastern Medical Center04-25-2023 History of Present illness Narrative* Kirsten Euceda PA-C - 06/24/2022 10:33 AM EDT This note was created using NoteWriter. Luis Alberto Moniqueh Gonzalez is a 57 year old female. [...] Chronic kidney disease Contraceptive management Depression Diabetes ([facility]) Diarrhea DVT, lower extremity ([facility]) 08/2014 Right leg (6) Esophagitis Facial fracture due to fall ([facility]) Fatigue Fibromyalgia Fracture Fracture of shaft [...] 90 tablet 3 flash glucose scanning reader (Gripp'n TechSTYLE FESTUS 2 READER) Use to check glucose [...] Take 1 tablet by mouth once daily. Oqgttlbz-Nz-Vkx-Fe-FA ( VITAMIN) ORAL Tab Take 1 tablet [...] CULTURE Kirsten Euceda PA-C documented in this encounterOhiohealth Southeastern Medical Center04-21-2023 History of Present illness Narrative* Kaylin Carranza RN - 06/20/2022 12:47 PM EDT CKD SPECIALIZED COORDINATION QUICK NOTE Provider Action/FYI Telephone call Telephone call placed to pt. My call went to voice mail. Left msg identifying myself & the reason for my call. Requested a return call @ her earliest convenience. Kaylin Carranza RN documented in this encounterOhiohealth Southeastern Medical Center04-20-2023 Miscellaneous Notes* Telephone Encounter - Angeline Spangler - 06/19/2022 9:04 AM EDT Left patient message to call back to schedule Left arm av graft, per Dr Valenzuela needs to be done at [place], patient does not need OV prior to scheduling. Angeline Spangler documented in this encounterOhiohealth Southeastern Medical Center04-13-2023 History of Present illness Narrative* Dakota Rajput MD - 06/12/2022 3:10 PM EDT CONSULT ORTHOPAEDIC: KNEE PRIMARY CARE PHYSICIAN: Ignacio Cheatham MD REFERRING PROVIDER: Reagan Riggs [address] [facility] [address] ASSESSMENT & PLAN Impression: Arnold is a [...] interfering with activities which include exercise, doing creative writing professor, participating in family activities, walking, rising from [...] 03/21/2022. Consult to the Endocrinology and Metabolic [place] (STEFANY) recommended prior to surgery. Anemia Hemoglobin [...] Chronic kidney disease Contraceptive management Depression Diabetes ([facility]) Diarrhea DVT, lower extremity ([facility]) 08/2014 Right leg (6) Esophagitis Facial fracture due to fall ([facility]) Fatigue Fibromyalgia Fracture Fracture of shaft [...] Take 1 tablet by mouth once daily. Rysfkypg-Zt-Arw-Fe-FA ( VITAMIN) ORAL Tab Take 1 tablet [...] 2022 TIME: 3:10 PM documented in this encounterOhiohealth Southeastern Medical Center04-10-2023 Miscellaneous Notes* Telephone Encounter - Omkar Cornejo LPN - 06/09/2022 8:53 AM EDT Patient phones requesting refills as follows: Requested Prescriptions Pending Prescriptions Disp Refills labetalol (TRANDATE) 100 mg tablet 180 tablet 3 Sig: Take 1 tablet by mouth twice daily. SHONDA 03/21/22 NOV 08/11/22 Please review and advise. Omkar Cornejo LPN documented in this encounterOhiohealth Southeastern Medical Center03-27-2023 History of Present illness Narrative* Goldy Hunter DO - 05/26/2022 3:20 PM EDT [facility] SERVICE DATE: 05/26/2022 [...] mouth once daily. flash glucose scanning reader (Gripp'n TechSTYLE FESTUS 2 READER) Use to check glucose [...] Take 1 tablet by mouth once daily. Rqcsttdx-Yb-Ndv-Fe-FA ( VITAMIN) ORAL Tab Take 1 tablet [...] 26, 2022 TIME: 3:31 PM OFFICE NUMBER: [phone] CC: PRIMARY CARE PHYSICIAN: Ignacio Cheatham MD documented in this encounterOhiohealth Southeastern Medical Center03-27-2023 Instructions* Patient Instructions* Goldy Hunter [...] will be greatly appreciated. documented in this encounterOhiohealth Southeastern Medical Center03-03-2023 Miscellaneous Notes* Telephone Encounter - Kaylin Carranza RN - 05/02/2022 2:57 PM EST CKD SPECIALIZED COORDINATION QUICK NOTE Provider Action/FYI Telephone call Telephone call placed to pt. My call went to [facility]. Left msg identifying myself & the reason for my call. Requested a return call @ her earliest convenience. Kaylin Carranza RN documented in this encounterOhiohealth Southeastern Medical Center02-28-2023 Miscellaneous Notes* Telephone Encounter - [...] 08/11/22 Karla Bush MA documented in this encounterOhiohealth Southeastern Medical Center02-17-2023 Miscellaneous Notes* Telephone Encounter - Chrissy Perez LPN - 04/18/2022 2:22 PM EST Left detailed message on identified voicemail that since 02/07/22 she has been a No Show for every 2week H&H with Aranesp injection. Once again did not show for appt. Schedule at 2 pm today. Wondering if going elsewhere or if she plans on showing up for upcoming scheduled appts. Also sent copy of this message to her My chart. Chrissy Perez LPN documented in this encounterOhiohealth Southeastern Medical Center02-09-2023 History of Present illness Narrative* Reagan Riggs MD - 04/10/2022 3:05 PM EST Reagan Riggs MD Department of Orthopaedics Orthopaedics [address] [place] [id number] Dept: [phone] Dept April 10, 2022 CHIEF COMPLAINT: New and Pain of the Left Knee HPI Patient here today for left knee pain. She was last seen on 02/11/2018 OA left knee. She continues to have knee pain. New [facility]-ray today at [facility]. ASSESSMENT: M17.32 Post-traumatic osteoarthritis of left knee (primary encounter diagnosis) M25.562, G89.29 Chronic pain of left knee E11.22, N18.4 Type 2 diabetes mellitus with stage 4 chronic kidney disease, without long-term current use of insulin ([facility]) PLAN: Patient has done a great [...] in the medial compartment progressed since 01/01/2018. Seafood Clerk: SHAMAR Transcribe Date/Time: Apr 16 2022 10:04A Dictated [...] osteoarthritis, severe in the medial compartment with otqc-fb-akhr contact and moderate in the lateral and [...] Chronic kidney disease Contraceptive management Depression Diabetes ([facility]) Diarrhea DVT, lower extremity ([facility]) 08/2014 Right leg (6) Esophagitis Facial fracture due to fall ([facility]) Fatigue Fibromyalgia Fracture Fracture of shaft of fibula GERD (gastroesophageal reflux disease) HLD (hyperlipidemia) on tricor Hyperlipidemia Hypertension Hypomagnesemia Hypopotassemia IBS (irritable bowel syndrome) Insomnia Intertrigo Knee pain Morbid obesity ([facility]) 03/11/2011 Myalgia Nausea Neck pain Neuropathy [...] Take 1 tablet by mouth once daily. Xrorkbbx-Fu-Fxm-Fe-FA ( VITAMIN) ORAL Tab Take 1 tablet by mouth once daily. ondansetron orally disintegrating (ZOFRAN ODT) 4 mg disintegrating tablet Take 1 tablet by mouth every 8 hours as needed for nausea/vomiting. flash glucose scanning reader (Gripp'[employer] TechSTYLE FESTUS 2 READER) Use to check glucose [...] requesting physician via US mail. Ignacio Cheatham [address] [facility] [address] Reagan Riggs MD documented in this encounterOhiohealth Southeastern Medical Center02-09-2023 History of Present illness Narrative* Jenni Cates, RT(R) - 04/10/2022 1:20 PM EST Radiology [...] 10, 2022 1:49 PM documented in this encounterOhiohealth Southeastern Medical Center02-04-2023 Miscellaneous Notes* Telephone Encounter - Georgie Bishop MA - 04/05/2022 8:14 AM EST VM left instructing patient to return call to receive results. Georgie Bishop MA * Telephone Encounter - Georgie Bishop MA - 04/05/2022 8:13 AM EST ----- Message from Hever Cheema APRN.SALOONKEEPER sent at 04/04/2022 10:15 AM EST ----- Urine culture did not show clear evidence of infection.It just grew normal urogenital nazanin. She may continue to take antibiotic if it has been helpful. Recommend follow up with PCP to ensure hematuria has resolved. Hever Martinez CNP documented in this encounterOhiohealth Southeastern Medical Center02-02-2023 Miscellaneous Notes* Telephone Encounter - Chloe Carpenter LPN - 04/03/2022 9:10 AM EST Completed and faxed as requested. * Telephone Encounter - Ada Skylar - 04/02/2022 11:50 AM EST Patient came into office and dropped off [employer] FMLA paperwork to be completed. Placed on Dr. Donato for review, completion and signature. Needs faxed back to [phone]. Ada Skylar documented in this encounterOhiohealth Southeastern Medical Center02-01-2023 History of Present illness Narrative* Kirsten Euceda PA-C - 04/02/2022 12:35 PM EST This note was created using [employer]. Luis Alberto Gonzalez is a 56 year old female. [...] (6) Esophagitis Facial fracture due to fall ([facility]) Fatigue Fibromyalgia Fracture Fracture of shaft [...] Take 1 tablet by mouth once daily. Ibwjovor-Vl-Fql-Fe-FA ( VITAMIN) ORAL Tab Take 1 tablet [...] CULTURE Kirsten Euceda PA-C documented in this encounterOhiohealth Southeastern Medical Center01-26-2023 History of Present illness Narrative* [...] Care Gap or Scheduling/Wellness visits Payer: Payor: ANTHEM / Plan: BLUE CARD PPO [...] 27, 2022 9:52 AM documented in this encounterOhiohealth Southeastern Medical Center01-04-2023 Miscellaneous Notes* Telephone Encounter - Jenni Muller - 03/05/2022 7:40 AM EST Left detailed message on a secured voicemail. Jenni Yohana * Telephone Encounter - Sha Ray APRN.CNP - 03/05/2022 7:24 AM EST COVID-19, influenza A, and influenza B PCR test are negative. Continue supportive therapies as discussed during visit. Follow-up with PCP if symptoms are not improving. Sha Ray APRN.NOY documented in this encounterOhiohealth Southeastern Medical Center01-03-2023 History of Present illness Narrative* Hever Cheema APRN.CNP - 03/04/2022 2:31 PM EST Subjective Cough [...] Chronic kidney disease Contraceptive management Depression Diabetes ([facility]) Diarrhea DVT, lower extremity ([facility]) 08/2014 Right leg (6) Esophagitis Facial [...] mouth once daily. flash glucose scanning reader (Gripp'n TechSTYLE FESTUS 2 READER) Use to check glucose [...] Take 1 tablet by mouth once daily. Cknlnkng-Xg-Wjb-Fe-FA ( VITAMIN) ORAL Tab Take 1 tablet [...] illness Hever Cheema APRN.CNP documented in this encounterOhiohealth Southeastern Medical Center01-03-2023 Instructions* Patient Instructions* Hever Cheema [...] Discussed expected course of illness Hever Cheema APRN.SALOONKEEPER Treatment for Viral Upper Respiratory Tract Infections [...] fluids help open respiratory and sinus passages [place] may offer relief of nasal and head [...] worse rather than better documented in this encounterOhiohealth Southeastern Medical Center12-22-2022 History of Present illness Narrative* Laura Valenzuela LPN - 02/20/2022 11:48 AM EST Per Margareth Santoro was provided with Donjoy boot and gel [...] Depression Diabetes (HCC) Diarrhea DVT, lower extremity ([facility]) 08/2014 Right leg (6) Esophagitis Facial fracture due to fall ([facility]) Fatigue Fibromyalgia Fracture Fracture of shaft [...] mouth once daily. flash glucose scanning reader (Gripp'n TechSTYLE FESTUS 2 READER) Use to check glucose [...] Take 1 tablet by mouth once daily. Mboqggvx-Hh-Lmc-Fe-FA ( VITAMIN) ORAL Tab Take 1 tablet [...] weeks Frank Gerard DPM Podiatry [address] [facility] [address] Dept: [phone] Dept * Clare Chawla RN - 02/20/2022 [...] a post op shoe. documented [place] encounterGeorge [place]ille [address]-22-2022 Instructions* Patient Instructions* Frank Gerard - 02/20/2022 [...] (or decreased sensation in your feet) a nutrition associate should always cut your toenails. Be Careful [...] Go to your health care provider or nutrition associate to treat these conditions. Powerstep Original Full length. Can purchase at [employer] here in [place], [employer] in [place] or [place]. Also can find in [place] in [facility]. Powersteps can also be purchased [...] everything fits well together documented in this encounterOhiohealth Southeastern Medical Center12-22-2022 Nurse Note* Chrissy Perez LPN - 02/20/2022 10:04 AM EST Injection deferred, parameters not met HGB 10.8 Chrissy Perez LPN documented in this encounterOhiohealth Southeastern Medical Center12-20-2022 History of Present illness Narrative* Nakia Hernandez RT(R) - 02/18/2022 9:20 AM EST Radiology [...] 18, 2022 9:09 AM documented in this [facility]12-20-2022 History of Present illness Narrative* Jimmy Rabago APRN.SALOONKEEPER - 02/18/2022 9:07 AM EST Images from [...] Chronic kidney disease Contraceptive management Depression Diabetes ([facility]) Diarrhea DVT, lower extremity ([facility]) 08/2014 Right leg (6) Esophagitis Facial fracture due to fall ([facility]) Fatigue Fibromyalgia Fracture Fracture of shaft of fibula GERD (gastroesophageal reflux disease) HLD (hyperlipidemia) on tricor Hyperlipidemia Hypertension Hypomagnesemia Hypopotassemia IBS (irritable bowel syndrome) Insomnia Intertrigo Knee pain Morbid obesity ([facility]) 03/11/2011 Myalgia Nausea Neck pain Neuropathy [...] Take 1 tablet by mouth once daily. Nxqjkupe-Ct-Thl-Fe-FA ( VITAMIN) ORAL Tab Take 1 tablet [...] MD - CONSULT TO PODIATRY Jimmy Rabago APRN.SALOONKEEPER documented in this encounterOhiohealth Southeastern Medical Center12-06-2022 Instructions* Patient Instructions* Goldy Hunter [...] will be greatly appreciated. documented in this encounterOhiohealth Southeastern Medical Center12-06-2022 History of Present illness Narrative* Goldy Hunter DO - 02/04/2022 2:00 PM EST [facility] NEPHROLOGY & [facility] SERVICE DATE: 02/04/2022 [...] mouth once daily. flash glucose scanning reader (Gripp'n TechSTYLE FESTUS 2 READER) Use to check glucose [...] Take 1 tablet by mouth once daily. Rphzpdrf-Mn-Dps-Fe-FA ( VITAMIN) ORAL Tab Take 1 tablet [...] 04, 2022 TIME: 2:18 PM OFFICE NUMBER: [phone] CC: PRIMARY CARE PHYSICIAN: Ignacio Cheatham MD documented in this encounterOhiohealth Southeastern Medical Center11-25-2022 Nurse Note* Veronica Atkinson LPN - 01/24/2022 2:57 PM EST Retacrit injection deferred. Pt did not meet treatment parameters. Hgb 10.3 Veronica Atkinson LPN documented in this encounterOhiohealth Southeastern Medical Center10-25-2022 Miscellaneous Notes* Telephone Encounter - Kaylin Carranza - 12/24/2021 12:25 PM EDT Telephone call placed to pt. She did not answer my call. Left voicemail requesting a return call. Kaylin Carranza RN documented in this encounterOhiohealth Southeastern Medical Center10-20-2022 Miscellaneous Notes* Telephone Encounter - [...] 20% Teagan Spencer MD documented in this encounterOhiohealth Southeastern Medical Center10-19-2022 History and physical note * Teagan Spencer MD - 12/18/2021 9:48 AM EDT Hematology and Medical Oncology PATIENT NAME: Margareth Gonzalez. CLINIC NO: [id number]. ATTENDING PHYSICIAN: Teagan Specner MD. DATE OF SERVICE:12/18/2021. DIAGNOSIS: Chronic anemia; stage 4 chronic kidney failure, history of iron deficiency anemia; status post gastric bypass. Consultation requested by Fab Cochran APRN.NOY for an opinion regarding anemia. My final [...] Take 1 tablet by mouth once daily. Xuvucawq-Kf-Dfr-Fe-FA ( VITAMIN) ORAL Tab Take 1 tablet by mouth once daily. flash glucose scanning reader (Gripp'n TechSTYLE FESTUS 2 READER) Use to check glucose [...] with more than 50% of the total xpvx-lr-gxdp time of the visit in counseling / coordination of care. Teagan Spencer MD. ELECTRONICALLY SIGNED Cc: Ignacio Cheatham MD documented in this encounterCleveland [id number] Instructions* Patient Instructions* Fab Cochran APRN.CNP - 12/05/2021 1:59 PM EDT PLAN: -Hematology consult to help increase red blood cell count and decrease anemia. Please get the labs done prior -Please increase calcitriol to 0.5mcg daily -Please get labs drawn monthly. Standing orders have been placed -[employer] [phone] Marly -Please go to ER if you have increased itching, hiccups, metallic taste, nausea, vomiting, increasefatigue, confusion or not making urine -Discussed need for continued good diabetes, blood pressure and cholesterol control -Recommend BP goal of 130/80 or less. Please contact the office if your blood pressure is less amkb614/70 or higher than 160/90 -Recommend continued HgbA1c [...] improve our service to you by calling [phone] You may be receiving a survey regarding your care today. If you do, please take a few minutes to fill it out and send it back. It would be greatly appreciated. documented in this encounterOhiohealth Southeastern Medical Center10-06-2022 History of Present illness Narrative* Fab Cochran APRN.NOY - 12/05/2021 1:00 PM EDT [facility] DEPARTMENT OF KIDNEY MEDICINE CHIEF [...] Chronic kidney disease Contraceptive management Depression Diabetes ([facility]) Diarrhea DVT, lower extremity ([facility]) 08/2014 Right leg (6) Esophagitis Facial fracture due to fall ([facility]) Fatigue Fibromyalgia Fracture Fracture of shaft of fibula GERD (gastroesophageal reflux disease) HLD (hyperlipidemia) on tricor Hyperlipidemia Hypertension Hypomagnesemia Hypopotassemia IBS (irritable bowel syndrome) Insomnia Intertrigo Knee pain Morbid obesity ([facility]) 03/11/2011 Myalgia Nausea Neck pain Neuropathy [...] mouth once daily. flash glucose scanning reader (Gripp'n TechSTYLE FESTUS 2 READER) Use to check glucose [...] (Patient not taking: Reported on 06/28/2021 ) Tqybuvzt-Ec-Cdh-Fe-FA ( VITAMIN) ORAL Tab Take 1 tablet [...] drawn monthly. Standing orders have been placed -[employer] [phone] Marly -Please go to ER if you have increased itching, hiccups, metallic taste, nausea, vomiting, increasefatigue, confusion or not making urine -Discussed need for continued good diabetes, blood pressure and cholesterol control -Recommend BP goal of 130/80 or less. Please contact the office if your blood pressure is less ubfp642/70 or higher than 160/90 -Recommend continued HgbA1c [...] and reviewing the chart. documented in this encounterOhiohealth Southeastern Medical Center10-06-2022 Miscellaneous Notes* Telephone Encounter - [...] primary care: 09/14/21 Please advise. Thank you. uSry Corral LPN documented in this encounterOhiohealth Southeastern Medical Center09-28-2022 History of Present illness Narrative* [...] time. Kaylin Carranza RN documented in this encounterOhiohealth Southeastern Medical Center09-26-2022 Miscellaneous Notes* Telephone Encounter - [...] advise. Elenita Waldron LPN documented in this encounterOhiohealth Southeastern Medical Center09-21-2022 History of Present illness Narrative* YOUSIF Fierro - 11/20/2021 3:44 PM EDT PULM FUNCTION SMARTBLOCK: Provider: Dorene Macias MD Assisting Tech: YOUSIF Fierro DLCO: 1 LV - Box: 1 documented in this encounterOhiohealth Southeastern Medical Center08-29-2022 History of Present illness Narrative* Son Turpin RN - 10/28/2021 12:34 PM EDT DIABETES SELF-MANAGEMENT EDUCATION AND SUPPORT Location: [place] Type of visit: In person individual Types [...] Race/Ethnic Origin: White/ Does your culture or tenriism require any of the following: No cultural/catholic practices affecting DM Do you have problems [...] (6) Esophagitis Facial fracture due to fall ([facility]) Fatigue Fibromyalgia Fracture Fracture of shaft [...] mouth once daily. flash glucose scanning reader (Gripp'n TechSTYLE FESTUS 2 READER) Use to check glucose [...] Take 1 tablet by mouth once daily. Ebstorfk-Kn-Bmh-Fe-FA ( VITAMIN) ORAL Tab Take 1 tablet [...] TIME: 12:36 PM PAGER: documented in this encounterOhiohealth Southeastern Medical Center08-29-2022 History of Present illness Narrative* Judi Olson RRT - 10/28/2021 9:56 AM EDT PULM FUNCTION SMARTBLOCK: Provider: Dorene Macias MD Spirometry w/BD: 1 documented in this encounterOhiohealth Southeastern Medical Center08-16-2022 Instructions* Patient Instructions* Sha Ray [...] or concerning to you. documented in this encounterOhiohealth Southeastern Medical Center08-16-2022 History of Present illness Narrative* [...] Depression Diabetes (HCC) Diarrhea DVT, lower extremity ([facility]) 08/2014 Right leg (6) Esophagitis Facial fracture due to fall ([facility]) Fatigue Fibromyalgia Fracture Fracture of shaft [...] 90 tablet^Rfl: 3 flash glucose scanning reader (Gripp'n TechSTYLE FESTUS 2 READER)^Use to check glucose 3 [...] 1 tablet by mouth once daily.^Disp: ^Rfl: Ssymmlay-Pd-Jbj-Fe-FA ( VITAMIN) ORAL Tab^Take 1 tablet by [...] plan of care. This note was generatedusing [email or web address] software. It may contain errors in wording, punctuation, or spelling. Sha Ray APRN.NOY documented in this encounterOhiohealth Southeastern Medical Center08-03-2022 Instructions* Patient Instructions* Rojelio Clark [...] meals in 2 weeks documented in this encounterOhiohealth Southeastern Medical Center08-03-2022 History of Present illness Narrative* [...] Take 1 tablet by mouth once daily. Bgteride-Ml-Lru-Fe-FA ( VITAMIN) ORAL Tab Take 1 tablet [...] which included preparing to see the patient, zgoq-um-fuuc patient care, completing clinical documentation, counseling and educating the patient/family/caregiver and ordering medications, tests, or procedures. Rojelio Clark MD documented in this encounterOhiohealth Southeastern Medical Center08-01-2022 Miscellaneous Notes* Telephone Encounter - Karly Wells RN - 09/30/2021 10:25 AM EDT Left patient a VM was following up in regards to her needing a knee replacement and if she has beenseen by a dentist. Direct desk number provided. documented in this encounterOhiohealth Southeastern Medical Center07-16-2022 History of Present illness Narrative* [...] the last week. Average glucose around 160. Sees endo on 10/02 bp is bouncing around some at home. Brings in his bp cuff. Has a dental infection. No abscess. Has an appt to see dentist in a week. No fever or swollen glands. Seeing pulmonary soon. See previous ov: Seen at [facility]. Was feeling lightheaded and had a [...] Take 1 tablet by mouth once daily. Btvlcozq-Tq-Kqo-Fe-FA ( VITAMIN) ORAL Tab Take 1 tablet [...] Chronic kidney disease Contraceptive management Depression Diabetes ([facility]) Diarrhea DVT, lower extremity ([facility]) 08/2014 Right leg (6) Esophagitis Facial fracture due to fall ([facility]) Fatigue Fibromyalgia Fracture Fracture of shaft of fibula GERD (gastroesophageal reflux disease) HLD (hyperlipidemia) on tricor Hyperlipidemia Hypertension Hypomagnesemia Hypopotassemia IBS (irritable bowel syndrome) Insomnia Intertrigo Knee pain Morbid obesity ([facility]) 03/11/2011 Myalgia Nausea Neck pain Neuropathy [...] six months and prn. documented in this encounterOhiohealth Southeastern Medical Center06-28-2022 History of Present illness Narrative* Jonathan Valenzuela MD - 08/27/2021 9:18 AM EDT Images from the original note were not included. [facility] [place] DEPARTMENT OF VASCULAR SURGERY OUTPATIENT VISIT DATE [...] Chronic kidney disease Contraceptive management Depression Diabetes ([facility]) Diarrhea DVT, lower extremity ([facility]) 08/2014 Right leg (6) Esophagitis Facial fracture due to fall ([facility]) Fatigue Fibromyalgia Fracture Fracture of shaft of fibula GERD (gastroesophageal reflux disease) HLD (hyperlipidemia) on tricor Hyperlipidemia Hypertension Hypomagnesemia Hypopotassemia IBS (irritable bowel syndrome) Insomnia Intertrigo Knee pain Morbid obesity ([facility]) 03/11/2011 Myalgia Nausea Neck pain Neuropathy [...] mouth once daily. flash glucose scanning reader (Gripp'n TechSTYLE FESTUS 2 READER) Use to check glucose [...] Take 1 tablet by mouth once daily. Hgbnyosa-Nk-Kwt-Fe-FA ( VITAMIN) ORAL Tab Take 1 tablet [...] Wt 104.8 kg (231 lb) LMP 09/20/2014 [id number]% BMI 35.12 kg/m No change in exam. [...] High CM 188 High CM Comment: The [place] Diabetes Association (ADA) provides guidance for cutoff [...] Standards of Medical Care in Diabetes 2016, [place] [employer]. Diabetes Care. 2016.39(Suppl 1). BUN [...] 2021 TIME: 9:18 AM documented in this encounterOhiohealth Southeastern Medical Center06-24-2022 Miscellaneous Notes* Telephone Encounter - Efra Box Il - 08/23/2021 9:06 AM EDT Left detailed message that form will be in [employer] recs after lunch * Telephone Encounter - [...] name: Linden Carpenter LPN documented in this encounterOhiohealth Southeastern Medical Center06-20-2022 Miscellaneous Notes* Telephone Encounter - Karly Wells RN - 08/19/2021 9:12 AM EDT LVM for patient to please return my call in regards to abnormal test results. Direct desk number provided. documented in this encounterOhiohealth Southeastern Medical Center06-16-2022 History of Present illness Narrative* Saira Brody RN - 08/15/2021 12:30 PM EDT RADIOLOGY SERVICE PROGRESS NOTE SERVICE DATE: 08/15/2021 SERVICE TIME: 1:12 PM PATIENT IDENTITY VERIFICATION COMPLETED USING TWO (2) STANDARD IDENTIFIERS: Name and Date of confirmed by patient verbally and Name and Date of confirmed by identification band PATIENT GENDER DATA: female ALLERGIES: Reviewed and unchanged MEDICATIONS REVIEWED BY: Assistant Spa Manager PROCEDURE TYPE: NM STRESS: 0.4 mg of [...] radiation safety can be found usingthis link: [email or web address]%[email or web address] SIGNATURE: Saira Brody RN PATIENT NAME: Margareth Gonzalez DATE: August 15, 2021 TIME: 1:12 PM PAGER/CONTACT #:[phone] * RT Timoteo(R) - 08/15/2021 12:30 PM EDT RADIOLOGY SERVICE [...] STATUS: Discontinued PROCEDURE TYPE: NM Stress: 14mCi Gn07g-Fwbsipr was administered IV for Rest Imaging at 1115 by RT Ai(May) . 31.6 mCi Yz71x-Jwtkenk was administered IV for Stress Imaging at 1:10PM by RT Federico(May). ADMINISTRATION TIME: PATIENT DISCHARGED TO: Ambulatory patient, left [place] department area. A Diagnostic radioactive procedure has taken place, with no further precautions necessary other than routine body substance precautions. More information regarding radiation safety can be found usingthis link: [email or web address]%20Medicine%[email or web address] SIGNATURE: RT Ai(R) PATIENT NAME: Margareth Gonzalez DATE: August 15, 2021 TIME: 11:16 AM PAGER/CONTACT #: documented in this encounterOhiohealth Southeastern Medical Center06-16-2022 History of Present illness Narrative* SHANDRA Fontanez) - 08/15/2021 11:00 AM EDT Radiology Service [...] 15, 2021 10:27 AM documented in this encounterOhiohealth Southeastern Medical Center06-13-2022 History of Present illness Narrative* Jonathan Valenzuela MD - 08/12/2021 3:57 PM EDT Images from the original note were not included. [facility] [place] DEPARTMENT OF VASCULAR SURGERY OUTPATIENT VISIT DATE August 12, 2021 OUTPATIENT VISIT TYPE CONSULTATION SERVICE DATE: 08/12/2021 SERVICE TIME: 3:59 PM PRIMARY CARE PHYSICIAN: Ignacio Cheatham MD REFERRING PROVIDER: Fab Cochran [id number] [phone] Consult requested for an opinion regarding the [...] mouth once daily. flash glucose scanning reader (Gripp'n TechSTYLE FESTUS 2 READER) Use to check glucose [...] Take 1 tablet by mouth once daily. Humirgyh-Xh-Ach-Fe-FA ( VITAMIN) ORAL Tab Take 1 tablet [...] 2021 TIME: 3:59 PM documented in this encounterOhiohealth [facility]heastern [facility] Center06-07-2022 Miscellaneous Notes* Telephone Encounter - [...] If we are looking in town, Dr Larkin * Telephone Encounter - Ameena Dumont RN - 08/01/2021 4:10 PM EDT Patient calling to ask PCP if he can recommend a vascular surgeon for placement of A-V fistula for dialysis? Nephrology is recommending she have one placed. Ameena Dumont RN documented in this encounterOhiohealth Southeastern Medical Center06-02-2022 Miscellaneous Notes* Addendum Note - Fab Cochran APRN.CNP - 08/01/2021 5:27 PM EDT Addended by: FAB COCHRAN on: 08/01/2021 05:27 PM Modules accepted: Orders documented in this encounterOhiohealth Southeastern Medical Center06-02-2022 Instructions* Patient Instructions* Fab Cochran APRN.CNP - 08/01/2021 2:49 PM EDT PLAN: -Please [...] office if your blood pressure is less ezzm713/70 or higher than 160/90 -Recommend HgbA1c of [...] Referral to: vascular surgeon. Saira Jackson D.O [phone] in [place] or other locations that are convenient for [...] improve our service to you by calling [phone] You may be receiving a survey regarding your care today. If you do, please take a few minutes to fill it out and send it back. It would be greatly appreciated. documented in this encounterOhiohealth Southeastern Medical Center06-02-2022 History of Present illness Narrative* Fab Cochran APRN.NOY - 08/01/2021 1:45 PM EDT [facility] DEPARTMENT OF KIDNEY MEDICINE CHIEF [...] 90-115 fasting. Has been recommended time study statistician monitoring and is awaiting approval Medication adherence [...] mouth once daily. flash glucose scanning reader (Gripp'n TechSTYLE FESTUS 2 READER) Use to check glucose 3 times daily and continuously. 1 per year. flash glucose sensor (Gripp'n TechSTYLE FESTUS 2 SENSOR) kit Use to check [...] (Patient not taking: Reported on 06/28/2021 ) Rnwgohiv-Uo-Bgg-Fe-FA ( VITAMIN) ORAL Tab Take 1 tablet [...] 10/27/2020 12/26/2020 02/15/2021 03/27/2021 05/07/2021 06/03/2021 06/26/2021 07/03/2021 07/30/2021 EGFR, 21 20 20 20 EGFR, All [...] office if your blood pressure is less ufmj651/70 or higher than 160/90 -Recommend HgbA1c of 7 or less as CKD goal. -Follow low salt diet. (/ tsp salt) <2 grams -Please watch your [...] Referral to: vascular surgeon. Saira Jackson D.O [phone] in [place] or other locations that are convenient for you RTC [address] Dale Cochran CNP Spent 43 minutes in the visit and reviewing the chart. documented in this encounterOhiohealth Southeastern Medical Center05-31-2022 History of Present illness Narrative* gInacio Cheatham MD - 07/30/2021 2:24 PM EDT Patient presents with: Follow Up: ER 07/29/2021 HPI: Patient presents today for office visit for ER visit from yesterday. Seen at [facility]. Was feeling lightheaded and had a [...] mouth once daily. flash glucose scanning reader (Gripp'n TechSTYLE FESTUS 2 READER) Use to check glucose [...] Take 1 tablet by mouth once daily. Woyxmbmh-Iz-Bnq-Fe-FA ( VITAMIN) ORAL Tab Take 1 tablet [...] (6) Esophagitis Facial fracture due to fall ([facility]) Fatigue Fibromyalgia Fracture Fracture of shaft [...] renal function. Ignacio Cheatham documented in this encounterOhiohealth Southeastern Medical Center05-31-2022 Miscellaneous Notes* Telephone Encounter - Lynne Barber MA - 07/30/2021 1:41 PM EDT Spoke with patient and scheduled * Telephone Encounter - Lynne Barber MA - 07/30/2021 9:09 AM EDT Please advise? Okay to see PRODUCT TECHNOLOGY SCIENTIST Fab? * Telephone Encounter - Leticia Zaidi - 07/30/2021 8:32 AM EDT Margareth Gonzalez is calling oGldy Hunter DO today with Patient Update. Patient had blood drawn yesterday at er and bun and creatinine was high. She was told to see her asbestos cloth inspector as soon as possible. Scheduling does not have a sooner appointment than October. Patient has been identified by name and birthdate. Duration of symptoms: N/A Person calling: self Call patient at: on cell [phone] (home) [phone] (work) [phone] (cell) Was an appointment scheduled: Yes: Date/Time: 11/11/2021 Closing statement: Symptom Call: Thank you for calling [facility], your call is very important. A nurse will call in approximately 2-4 hours during business hours. If this is an emergency, please contact 911. Leticia Sandoval Pss documented in this encounterOhiohealth Southeastern Medical Center2022 Miscellaneous Notes* Telephone Encounter - [...] rapid pulse) Protocols used: BLOOD PRESSURE - [id number]-IMEZG-[id number] documented in this encounterOhiohealth Southeastern Medical Center05-27-2022 Miscellaneous Notes* Telephone Encounter - Ashley Lira LPN - 07/26/2021 11:19 AM EDT shonda-- 06/26/21 Next 08/09/21 Last refill 03/26/21 90 with 3 Last labs 07/03/21 documented in this encounterOhiohealth Southeastern Medical Center05-24-2022 Miscellaneous Notes* Telephone Encounter - Georgina Salmon RN - 07/23/2021 3:18 PM EDT Attempted to contact patient, no answer. Message left for patient to call office and ask for triagenurse. Georgina Salmon RN * Telephone Encounter - Efra Box Ma - 07/23/2021 1:36 PM EDT Please triage mychart message documented in this encounterOhiohealth Southeastern Medical Center05-23-2022 Miscellaneous Notes* Telephone Encounter - Sarah Merida Ma - 07/22/2021 8:33 AM EDT Patient via [place] requesting refills as follows: Patient verified with [...] advise. Sarah Merida Ma documented in this encounterOhiohealth Southeastern Medical Center05-19-2022 Miscellaneous Notes* Telephone Encounter - Goldy Hunter DO - 07/18/2021 2:53 PM EDT Yes please. Fab. * Telephone Encounter - Nivia Fuentes Adm - 07/18/2021 2:45 PM EDT Pt cancelled her appt with you on 07/24/2021. Rescheduled for 11/11/21. She would like an earlier appt would you like me to try for a AP? Nivia Alfredo Stripping Shovel Operator documented in this encounterOhiohealth Southeastern Medical Center05-04-2022 History of Present illness Narrative* [...] 2:08 PM EDT [facility] Transplant Evaluation CC: Patient is a 56 year old female here for transplant candidacy evaluation. Reason for visit: here for evaluation to be a Kidney Transplant recipient. Referred by: Goldy Hunter [address] [place] [address] I will communicate with the referring provider by letter and/or shared electronic medical record. HPI: 56yo lady here for ktxp evaluation. CKD IV sec DM. Most recent eGFR 16 (May 2021).Uses wc for distance. Pt has severe knee pain. Long standing diabetic since age 24. Weight loss surgery in 2012 and lost 60lbs, IBS, diarrhea, w/incontinence of [...] a urologist for evaluation Denies any h/o TN or CVA Describes a h/o DVT x [...] Take 1 tablet by mouth once daily. Cyqpbmzd-Ah-Rtx-Fe-FA ( VITAMIN) ORAL Tab Take 1 tablet [...] are not limited to: bleeding, infection, , TN, DVT, PE, CVA, risk of damage to [...] Urology evaluation. [facility] -Vascular medicine eval possible h/o hypercoaguable state -The patient is an acceptable surgical candidate for renal transplant pending acceptable findings on the remainder of the pre-transplant evaluation Linda Livingston MD documented in this encounterOhiohealth Southeastern Medical Center05-04-2022 Instructions* Patient Instructions* Latricia Deleon, RD - 07/03/2021 4:11 PM EDT Nutrition [...] Follow Low-Phosphorus diet 800-1000mg/day documented in this encounterOhiohealth Southeastern Medical Center05-04-2022 History of Present illness Narrative* Luis Mejia MD - 07/03/2021 2:30 PM EDT [facility] Transplant Evaluation CC: Patient is a 56 year old female here for transplant candidacy evaluation. Reason for visit: here for evaluation to be a Kidney Transplant recipient. Referred by: Goldy Hunter [address] [place] [address] I will communicate with the referring provider [...] (Patient not taking: Reported on 06/28/2021 ) Soxysvrr-Mv-Hvq-Fe-FA ( VITAMIN) ORAL Tab Take 1 tablet [...] letter. Luis Mejia MD documented in this encounterOhiohealth Southeastern Medical Center05-04-2022 History of Present illness Narrative* Latricia Deleon, RD - 07/03/2021 12:47 PM EDT Nutrition [...] Concerns: weight gain Diet History: Breakfast - [place] with butter or jelly Lunch - PB [...] Physical limitations affecting learning: None Referred/Supervised by: Wyatt VALE Billing Type: Initial Assess/15 min 3 units SIGNATURE: Latricia Deleon RD PATIENT NAME: Margareth Gonzalez DATE: July 03, 2021 TIME: 12:48 PM PAGER: N/A documented in this encounterOhiohealth Southeastern Medical Center05-04-2022 History of Present illness Narrative* SHANDRA Pop) - 07/03/2021 12:00 PM EDT Radiology Service [...] 03, 2021 12:17 PM documented in this encounterOhiohealth Southeastern Medical Center05-04-2022 History of Present illness Narrative* [...] about Kidney Allocation Policy -Directions to access [facility]'s data through the [facility] website. -Informed Consent for Transplant Program Participation patient education packet -National Kidney Registry pamphlet -Covid-19 Vaccination for Transplant Candidates Method of Instruction: Group class instruction Written instruction - handouts Verbal instruction Computer Patient/Family Response: Patient and family member asked appropriate questions, which were answeredsatisfactorily. Follow-Up Plan: Complete - No need for follow-up Referral/Recommendation: None Dakota Hernandez RN Pre-Switchboard Operator Supervisor documented in this encounterOhiohealth Southeastern Medical Center05-04-2022 History of Present illness Narrative* ESTEPHANIE Gabriel - 07/03/2021 8:50 AM EDT PSYCHOSOCIAL FACE TIME EVALUATION FOR KIDNEY TRANSPLANT COVID-19 PRECAUTIONS Social Supports: Sister, Halle and brother, George have confirmed support. Financial Concerns: Pt has limited income but has been managing high co-pays with [facility]. Compliance: Pt is not dialysis dependent. Mental [...] was accompanied by her sister, Halle Barragan. Race/Gender: White female [place] Citizen: Yes IDENTIFYING INFORMATION/LIVING SITUATION Margareth Gonzalez [phone] [place] [id number]. The home is about 1.5 hours from . Margareth Gonzalez has been living in this home for three years. Margareth Gonzalez is is independent with all ADL's. The pt lives alone, drives, and has a vehicle. Caregiver responsibilities: None Pets in the home: Three cats. Pet care precautions reviewed. TRANSPLANT LODGING PLANS FOR PATIENTS WHO LIVE 2.5 OR MORE HOURS AWAY FROM [facility]: Do you have the financial [...] it or because of side-effects? No. Moral, catholic, or ethical views about transplants or blood [...] substance use problems. He is in a longterm house now. Niece has anxiety and depression. Is a referral to Transplant Psychiatry indicated for further evaluation or screening: Yes. Pt reports diagnosis of Bipolar. SOCIAL NARRATIVE Margareth Gonzalez grew up in [place], [place]. She is 56 years of age. [place] [place] [facility] [place] She describes childhood as rough. The family [...] disciplinarians. Excerpt from Bariatric Evaluation on 02/19/2012, Eun Campbell CNP: Arnold Gonzalez is the middle of 5 siblings. The patient was born and raised in [place]. She completed some college. She described her [...] PTO and STD. HEALTH INSURANCE/FINANCIAL Medical Insurance: [employer] Payer of Insurance Premium: Pt Prescription Coverage: [...] Yes Primary Caregiver: Halle Barragan Contact Number: [phone] Health Status and Availability of Caregiver: Good health/available Valid Behavioral Modification Assistant's License/Working Vehicle: Yes/Yes Caregiver Substance Use: Denies Caregiver Mental Health: Stable Secondary Caregiver: George Gonzalez, brother. He confirmed support on 07/08/21. Contact Number: [phone] Health Status and Availability: Good health/Available Valid Behavioral Modification Assistant's License/Working Vehicle: Yes/Yes Caregiver Substance Use: Denies [...] she saw him for psychotherapy at the [facility] office in 2011. The pt was seen [...] bipolar illness at a free clinic in [place] between 2004 and 2005. She was on Cymbalta for depression at that time. While on Cymbalta she had several panic attacks. She was referred to the counseling center in [place] and was started on Abilify and after [...] Arnold has not started dialysis. She has [employer] coverage and will most likely need prescription [...] need to have a caregiver time study statistician for 2 weeks post transplant. Margareth Gonzalez was advised that it is imperative to adhere to the medical regimen and recovery restrictions. Gianni Gonzalez indicated understanding of this information. Pt had the opportunity to ask questions. Pt was given information and brochures about the kidney transplant process and fund raising options. Pt was given the phone number of the transplant social media strategist to address future concerns. LARRY Gabriel, [facility] Transplant Shear Grinder Operator Helper documented in this encounterOhiohealth Southeastern Medical Center04-29-2022 Instructions* Patient Instructions* Rojelio Clark [...] and let us know documented in this encounterOhiohealth Southeastern Medical Center04-29-2022 History of Present illness Narrative* [...] (6) Esophagitis Facial fracture due to fall ([facility]) Fatigue Fibromyalgia Fracture Fracture of shaft [...] (1:1,000) atIn by INJECTION(UNSPECIFIED PARENTERAL ROUTES) route. Cmlkuzii-Pc-Lgz-Fe-FA ( VITAMIN) ORAL Tab Take 1 tablet [...] with more than 50% of the total aeth-rj-lpzn time of the visit in counseling / coordination of care. Rojelio Clark MD documented in this encounterOhiohealth Southeastern Medical Center04-27-2022 Miscellaneous Notes* Telephone Encounter - Khushboo Bolanos MA - 06/26/2021 5:31 PM EDT Left message reminding patient of appointment on 07/03/2021. Stated the importance of arriving on time as if she is late she may be asked to reschedule the . Callback number was provided. Khushboo Bolanos MA documented in this encounterOhiohealth Southeastern Medical Center04-27-2022 History of Present illness Narrative* [...] (1:1,000) atIn by INJECTION(UNSPECIFIED PARENTERAL ROUTES) route. Ehdybrer-Zf-Ynt-Fe-FA ( VITAMIN) ORAL Tab Take 1 tablet [...] Chronic kidney disease Contraceptive management Depression Diabetes ([facility]) Diarrhea DVT, lower extremity ([facility]) 08/2014 Right leg (6) Esophagitis Facial fracture due to fall ([facility]) Fatigue Fibromyalgia Fracture Fracture of shaft of fibula GERD (gastroesophageal reflux disease) HLD (hyperlipidemia) on tricor Hyperlipidemia Hypertension Hypomagnesemia Hypopotassemia IBS (irritable bowel syndrome) Insomnia Intertrigo Knee pain Morbid obesity ([facility]) 03/11/2011 Myalgia Nausea Neck pain Neuropathy [...] 1. Type 2 diabetes, controlled, with neuropathy ([facility]) - ICD9: 250.60, 357.2, ICD10: E11.40 (primarydiagnosis) [...] without long- term current use of insulin ([facility]) - ICD9: 250.40, 585.4, ICD10: E11.22, N18.4 - see endo - see podiatry 5. Bipolar affective disorder, remission status unspecified ([facility]) - ICD9: 296.80, ICD10: F31.9 6. Proliferative diabetic retinopathy associated with type 2 diabetes mellitus, unspecified laterality, unspecified proliferative retinopathy type ([facility]) - ICD9: 250.50, 362.02, ICD10: E11.3599 [...] RTO in six weeks. documented in this encounterOhiohealth Southeastern Medical Center04-07-2022 Miscellaneous Notes* Telephone Encounter - Efra Box Ma - 06/06/2021 10:24 AM EDT Patient was made aware of the results. Patient verbalizes understanding. Efra Box Ma * Telephone Encounter - Ignacio Cheatham MD - 06/06/2021 9:33 AM EDT Final culture results came in. Does show uti. Lets add renal dosed cipro. documented in this encounterOhiohealth Southeastern Medical Center04-06-2022 Miscellaneous Notes* Telephone Encounter - [...] Any current urinary symptoms? documented in this encounterOhiohealth Southeastern Medical Center04-04-2022 History of Present illness Narrative* [...] (1:1,000) atIn by INJECTION(UNSPECIFIED PARENTERAL ROUTES) route. Ovvelfsz-Fb-Eio-Fe-FA ( VITAMIN) ORAL Tab Take 1 tablet [...] plan. Stacy Schmitz PA-C documented in this encounterOhiohealth Southeastern Medical Center09-01-2021 History of Present illness Narrative* Jenni Bell RT(R) - 10/31/2020 3:50 PM EDT Radiology [...] 31, 2020 3:52 PM documented in this encounterOhiohealth Southeastern Medical Center02-15-2018 History of Past illness Narrative* [...] of this encounter (statuses as of 06/03/2021) [facility] of [facility] illness Narrative* [...] Overview: [facility] Dr[facility] Henderson documented as of this encounter (statuses as of 06/05/2021) [facility] Narrative* [...] of this encounter (statuses as of 06/06/2021) [facility] Narrative* [...] of this encounter (statuses as of 06/14/2021) [facility] Narrative* [...] of this encounter (statuses as of 06/26/2021) [facility] Narrative* [...] of this encounter (statuses as of 06/26/2021) [facility] Narrative* [...] of this encounter (statuses as of 06/28/2021) [facility] Narrative* [...] of this encounter (statuses as of 07/03/2021) [facility] Narrative* [...] of this encounter (statuses as of 07/03/2021) [facility] Narrative* [...] of this encounter (statuses as of 07/03/2021) [facility] illness Narrative* [...] 04/16/2017 Overview: [facility] Dr. Henderson documented as of this encounter (statuses as of 07/03/2021) [facility] Narrative* [...] of this encounter (statuses as of 07/04/2021) [facility] Narrative* [...] of this encounter (statuses as of 07/04/2021) [facility] Narrative* [...] of this encounter (statuses as of 07/08/2021) [facility] Narrative* [...] 04/16/2017 Overview: [facility] Dr. Henderson documented as of this encounter (statuses as of 07/18/2021) [facility] Narrative* [...] of this encounter (statuses as of 07/22/2021) [facility] Narrative* [...] of this encounter (statuses as of 07/26/2021) [facility] Narrative* [...] of this encounter (statuses as of 07/30/2021) [facility] Narrative* [...] of this encounter (statuses as of 07/30/2021) [facility] Narrative* [...] Overview: [facility] Henderson documented as of this encounter (statuses as of 08/01/2021) [facility] Narrative* [...] of this encounter (statuses as of 08/06/2021) [facility] Narrative* [...] of this encounter (statuses as of 08/12/2021) [facility] Narrative* [...] of this encounter (statuses as of 08/13/2021) [facility] Narrative* [...] 04/16/2017 Overview: [facility] [place], Dr. Henderson documented as of this encounter (statuses as of 08/16/2021) [facility] Narrative* [...] 04/16/2017 Overview: Follows with [facility], [facility], Dr. Henderson documented as of this encounter (statuses as of 08/16/2021) [facility] Narrative* [...] of this encounter (statuses as of 08/19/2021) [facility] Narrative* [...] of this encounter (statuses as of 08/23/2021) [facility] Narrative* [...] of this encounter (statuses as of 08/27/2021) [facility] Narrative* [...] of this encounter (statuses as of 09/14/2021) [facility] Narrative* [...] of this encounter (statuses as of 09/30/2021) [facility] Narrative* [...] of this encounter (statuses as of 10/02/2021) [facility] Narrative* [...] of this encounter (statuses as of 10/07/2021) [facility] Narrative* [...] of this encounter (statuses as of 10/15/2021) [facility] Narrative* [...] 04/16/2017 Overview: [facility], Dr. Henderson documented as of this encounter (statuses as of 10/28/2021) [facility] Narrative* [...] of this encounter (statuses as of 10/28/2021) [facility] Narrative* [...] of this encounter (statuses as of 10/28/2021) [facility] Narrative* [...] of this encounter (statuses as of 11/20/2021) [facility] Narrative* [...] Overview: [facility], [facility]. Henderson documented as of this encounter (statuses as of 11/25/2021) [facility] Narrative* [...] of this encounter (statuses as of 11/27/2021) [facility] Narrative* [...] of this encounter (statuses as of 11/27/2021) [facility] Narrative* [...] of this encounter (statuses as of 12/05/2021) [facility] Narrative* [...] of this encounter (statuses as of 12/05/2021) [facility] History of Past illness Narrative* [...] of this encounter (statuses as of 12/19/2021) [facility] Narrative* [...] of this encounter (statuses as of 12/19/2021) [facility] Narrative* [...] of this encounter (statuses as of 12/24/2021) [facility] Narrative* [...] of this encounter (statuses as of 12/30/2021) [facility] Narrative* [...] of this encounter (statuses as of 01/08/2022) [facility] Narrative* [...] of this encounter (statuses as of 01/10/2022) [facility] Narrative* [...] of this encounter (statuses as of 01/14/2022) [facility] Narrative* [...] of this encounter (statuses as of 01/24/2022) [facility] Narrative* [...] of this encounter (statuses as of 02/04/2022) [facility] Narrative* [...] of this encounter (statuses as of 02/07/2022) [facility] Narrative* [...] of this encounter (statuses as of 02/18/2022) [facility] Narrative* [...] of this encounter (statuses as of 02/21/2022) [facility] Narrative* [...] of this encounter (statuses as of 02/21/2022) [facility] Narrative* [...] of this encounter (statuses as of 03/06/2022) [facility] Narrative* [...] of this encounter (statuses as of 03/06/2022) [facility] Narrative* [...] of this encounter (statuses as of 03/07/2022) [facility] Narrative* [...] of this encounter (statuses as of 03/25/2022) [facility] Narrative* [...] of this encounter (statuses as of 03/27/2022) [facility] Narrative* [...] 04/16/2017 Overview: [facility] [place], Dr. Henderson documented as of this encounter (statuses as of 04/02/2022) [facility] Narrative* [...] of this encounter (statuses as of 04/03/2022) [facility] Narrative* [...] of this encounter (statuses as of 04/10/2022) [facility] Narrative* [...] of this encounter (statuses as of 04/29/2022) [facility] Narrative* [...] 04/16/2017 Overview: [facility] [place], Dr. Henderson documented as of this encounter (statuses as of 05/01/2022) [facility] Narrative* [...] of this encounter (statuses as of 05/02/2022) [facility] Narrative* [...] of this encounter (statuses as of 05/13/2022) [facility] Narrative* [...] of this encounter (statuses as of 05/26/2022) [facility] Narrative* [...] of this encounter (statuses as of 06/09/2022) [facility] Narrative* [...] Overview: [facility]. Henderson documented as of this encounter (statuses as of 06/13/2022) [facility] Narrative* [...] of this encounter (statuses as of 06/19/2022) [facility] Narrative* [...] of this encounter (statuses as of 06/20/2022) [facility] Narrative* [...] of this encounter (statuses as of 06/20/2022) [facility] Narrative* [...] 04/16/2017 Overview: [facility] [place], Dr. Henderson documented as of this encounter (statuses as of 06/24/2022) [facility] Narrative* [...] 04/16/2017 Overview: Follows with [facility], [facility], Dr. Henderson documented as of this encounter (statuses as of 06/25/2022) [facility] Narrative* [...] of this encounter (statuses as of 07/02/2022) [facility] Narrative* [...] of this encounter (statuses as of 07/03/2022) [facility] Narrative* [...] of this encounter (statuses as of 07/31/2022) [facility] Narrative* [...] of this encounter (statuses as of 08/01/2022) [facility] Narrative* [...] of this encounter (statuses as of 08/05/2022) [facility] Narrative* [...] of this encounter (statuses as of 08/05/2022) [facility] Narrative* [...] of this encounter (statuses as of 08/05/2022) [facility] Narrative* [...] 04/16/2017 Overview: [facility] [place], Dr. Henderson Acute gastritis 12/16/2007 08/04/2022 Overview: EGD with minimal gastritis, negative H Pylori 12/07 documented as of this encounter (statuses as of 08/06/2022) [facility] Narrative* [...] of this encounter (statuses as of 08/18/2022) [facility] illness Narrative* [...] of this encounter (statuses as of 08/20/2022) [facility] illness Narrative* [...] of this encounter (statuses as of 08/21/2022) [facility] Narrative* [...] of this encounter (statuses as of 08/26/2022) [facility] illness Narrative* [...] of this encounter (statuses as of 08/27/2022) [facility] illness Narrative* [...] of this encounter (statuses as of 08/27/2022) [facility] Narrative* [...] Overview: [facility] Dr. Henderson Acute gastritis 12/16/2007 08/04/2022 Overview: EGD with minimal gastritis, negative H Pylori 12/07 documented as of this encounter (statuses as of 09/03/2022) [facility] illness Narrative* [...] 18 Overview: Follows with [facility], [facility], Dr. Henderson Acute gastritis 12/16/2007 08/04/2022 Overview: EGD with minimal gastritis, negative H Pylori 12/07 documented as of this encounter (statuses as of 09/10/2022) [facility] Narrative* [...] of this encounter (statuses as of 09/10/2022) [facility] Narrative* [...] Overview: [facility] Acute gastritis 12/16/2007 08/04/2022 Overview: EGD with minimal gastritis, negative H Pylori 12/07 documented as of this encounter (statuses as of 09/10/2022) [facility] Narrative* [...] of this encounter (statuses as of 09/11/2022) [facility] Narrative* [...] of this encounter (statuses as of 09/11/2022) [facility] Narrative* [...] of this encounter (statuses as of 09/16/2022) [facility] illness Narrative* [...] of this encounter (statuses as of 09/16/2022) [facility] Narrative* [...] of this encounter (statuses as of 09/18/2022) [facility] Narrative* [...] of this encounter (statuses as of 09/30/2022) [facility] Narrative* [...] of this encounter (statuses as of 10/09/2022) [facility] Narrative* [...] limb 06/29/2008 02/21/2019 Dermatophytosis of nail 06/29/2008 02/1 10/2020 Corns and callosities 06/29/20082017 Essential hypertension, benign 03/27/2008 03/16/2015 DM w/o complication type II, uncontrolled 03/09/2008 12/07/2014 Overview: A1c 15.7 as of 2005 per old labs Down to 7.2 as of 2009 -- -CHECKING TWICE DAILY Routine gynecological examination 03/09/2008 04/16/2017 DIABETIC FOOT ULCER 03/09/2008 04/16/19 18 Overview: [facility]. Henderson Acute gastritis 12/16/2007 08/04/2022 Overview: EGD with minimal gastritis, negative H Pylori 12/07 documented as of this encounter (statuses as of 10/15/2022) [facility] Narrative* [...] of this encounter (statuses as of 10/15/2022) [facility] illness Narrative* [...] of this encounter (statuses as of 10/16/2022) [facility] illness Narrative* [...] of this encounter (statuses as of 10/17/2022) [facility] illness Narrative* [...] 18 Overview: [facility] Dr. Henderson Acute gastritis 12/16/2007 08/04/2022 Overview: EGD with minimal gastritis, negative H Pylori 12/07 documented as of this encounter (statuses as of 10/21/2022) [facility] of Past illness Narrative* [...] Overview: [facility]. Henderson Acute gastritis 12/16/2007 08/04/2022 Overview: EGD with minimal gastritis, negative H Pylori 12/07 documented as of this encounter (statuses as of 11/04/2022) [facility] Past illness Narrative* [...] of this encounter (statuses as of 11/07/2022) [facility] Narrative* [...] of this encounter (statuses as of 11/11/2022) [facility] illness Narrative* [...] of this encounter (statuses as of 11/14/2022) [facility] illness Narrative* [...] of this encounter (statuses as of 11/17/2022) [facility] illness Narrative* [...] of this encounter (statuses as of 11/19/2022) [facility] illness Narrative* [...] of this encounter (statuses as of 11/19/2022) [facility] illness Narrative* [...] of this encounter (statuses as of 11/21/2022) [facility] illness Narrative* [...] of this encounter (statuses as of 11/24/2022) [facility] Narrative* [...] of this encounter (statuses as of 11/25/2022) [facility] illness Narrative* [...] Overview: [facility] Dr. Henderson Acute gastritis 12/16/2007 08/04/2022 Overview: EGD with minimal gastritis, negative H Pylori 12/07 documented as of this encounter (statuses as of 11/28/2022) [facility] illness Narrative* [...] of this encounter (statuses as of 11/28/2022) [facility] Narrative* [...] of this encounter (statuses as of 12/10/2022) [facility] illness Narrative* [...] Overview: [facility], Dr. Henderson Acute gastritis 12/16/2007 08/04/2022 Overview: EGD with minimal gastritis, negative H Pylori 12/07 documented as of this encounter (statuses as of 12/12/2022) [facility] of Past illness Narrative* [...] of this encounter (statuses as of 01/04/2023) [facility] illness Narrative* [...] of this encounter (statuses as of 01/04/2023) [facility] Narrative* [...] of this encounter (statuses as of 01/04/2023) [facility] illness Narrative* [...] of this encounter (statuses as of 01/04/2023) [facility] illness Narrative* [...] of this encounter (statuses as of 01/04/2023) [facility] illness Narrative* [...] of this encounter (statuses as of 01/07/2023) [facility] illness Narrative* [...] of this encounter (statuses as of 01/15/2023) [facility] Narrative* [...] Overview: [facility] Dr. Henderson Acute gastritis 12/16/2007 08/04/2022 Overview: EGD with minimal gastritis, negative H Pylori 12/07 documented as of this encounter (statuses as of 01/20/2023) [facility] of Past illness Narrative* [...] of this encounter (statuses as of 01/27/2023) [facility] illness Narrative* [...] of this encounter (statuses as of 01/28/2023) [facility] Author Karla Terry [facility] January 29, 2023 12:14pm Note Date/Time January 29, 2023 12:15pm [facility] Medical Records Department [address] [place] [address] Counseling Note - Pharmacy 01/29/23 1214 MR#: [id number] Acct: [id number] Name: LISAMargareth ARNOLD Rep #:[id number] : 1965 57 From: Karla Terry PCP: Dr. Ignacio Cheatham MD Status:ADM I N Y Location: [address] Med Reconciliation Pharmacy Service has performed discharge [...] Fever, pain 1- 12/09 #0 tabs 09/11/22 docusate sodium 100 [...] Signature (if applicable): Date CC: ~ Signed [facility] Work Phone: Consult note Author Stephanie Werner [facility] Note Date/Time October 26, 2024 3: 36pm [facility] Medical Records Department [address] [place] [address] Counseling Note - Pharmacy 10/26/24 1535 MR#: [id number] Acct: [id number] Name: Margareth GONZALEZ Rep #:[id number] : 1965 59 From: Stephanie Werner PCP: Dr. Ignacio Cheatham MD Status:ADM I N Y Location: [place] [address] Pharmacy [facility] Counseling Pharmacy Service has performed discharge medication reconciliation and counseling for this patient. 1. CYCLOBENZAPRINE 5MG PO TID PRN MUSCLE SPASMS The patient's discharge medication list was reviewed for discrepancies and discrepancies were resolved. The patient was counseled on the following discharge medications and changes in medications for homegoing were reviewed. The Reason for Use, instructions for use, and potential side effects were reviewed for all new medications. The patient's questions regarding all of their medications were answered. The patient was able to verbally demonstrate an understanding of their dischargemedications. Medications at Discharge Home Medications cholecalciferol (vitamin D3) 25 mcg (1,000 unit) capsule (Vitamin D3) 5,000 unitPO DAILY SUPPLEMENT 10/03/13 omeprazole 20 mg capsule,delayed release 20 mg PO DAILY GERD 08/23/14 melatonin 5 mg capsule 10 mg PO QHS sleep 05/27/16 atorvastatin 40 mg tablet 40 mg PO QHS CHOLESTEROL 09/10/22 sevelamer carbonate 800 mg tablet 1,600 mg PO TID food 02/04/23 hydroxyzine HCl 50 mg tablet 50 mg PO Q6H PRN itching 06/29/23 acetaminophen 325 mg capsule (Tylenol) 650 mg PO Q6H PRN pain 07/02/23 ondansetron HCl 4 mg tablet 4 mg PO Q8H PRN PRN nausea and vomiting 07/02/23 dulaglutide 0.75 mg/0.5 mL subcutaneous pen injector (Trulicity) 0.75 mg subcut QWEEK injection 09/06/24 duloxetine 30 mg capsule,delayed release 30 mg PO DAILY mood 09/06/24 nifedipine 90 mg tablet,extended release 90 mg PO DAILY BP 09/06/24 pregabalin 25 mg capsule 50 mg PO QHS neuropathy 09/06/24 albuterol sulfate 90 mcg/actuation aerosol inhaler 2 puff inhalation Q2H PRN shortness of breath or wheezing 10/10/24 calcitriol 0.25 mcg capsule 1.5 mcg PO TUTHSA dialysis 10/10/24 sucroferric oxyhydroxide 500 mg chewable tablet (Velphoro) 500 mg PO TID phosphate inhib 10/10/24 torsemide 100 mg tablet 100 mg PO TUTHSA edema 10/10/24 fluticasone propionate 50 mcg/actuation nasal spray,suspension 2 spray intranasal Q12H allergies 10/24/24 cyclobenzaprine 5 mg tablet 5 mg PO TID PRN muscle spasm #14 tabs 10/26/24 guaifenesin 600 mg tablet, extended release 12 hr (Mucinex) 600 mg PO QHS mucus 10/26/24 10/26/24 1536 <Electronically signed by Stephanie Werner> Date _ Stephanie Werner Cosigner Signature (if applicable): Date CC: ~ Signed [facility] Work Phone: Discharge summary Author Johnathon Robertson [facility] March 09, 2023 10:51am Note Date/Time March 09, 2023 9: 58am [facility] Medical Records Department [address] [place] [address] Emergency Department Summary 03/09/23 MR#: [id number] Acct: [id number] Name: Margareth GONZALEZ [facility] Rep #:[id number] : 1965 57 From: Johnathon Robertson [...] Prior similar symptoms: Yes Recent Illness/Hospitalization: Yes PFSH PFSH Medical History Anemia Anxiety and depression Asthma [...] 100 mg PO DAILY STOOL SOFTENER #20 [id number]/16/23 [Rx Last Taken Unknown] apixaban 2.5 mg [...] Type Severity Reaction Status Date / Time cullen juan Allergy Unknown UNKNOWN Verified 03/09/23 09:33 [...] all extremities and no focal motor deficits [place] Coma Scale: document GCS findings Spontaneous Obeys [...] 10:30 EST Reading Location ID and State: [facility] / [place] Tel , Service support , Knee X-Ray 03/09/23 09:51 IMPRESSION: Status post open reduction internal fixation of fractured proximal tibia with intramedullary stephen. Healing fractures of the proximal tibia and fibula. Electronically Signed: Cong Stallworth MD at 10:37 EST Reading Location ID and State: [facility] / [place] Tel , Service support , Tibia/Fibula X-Ray 03/09/23 09:51 IMPRESSION: Status post open reduction internal fixation of the proximal tibia as described above. No new fracture is seen. Electronically Signed: Cong Stallworth MD at 10:40 EST Reading Location ID and State: [facility] / [place] Tel , Service support , Knee x-ray, [...] your Primary Care Provider. Call [facility] ([phone]) or report to the closest Emergency Room. Call 911 if necessary. 03/09/23 1051 <Electronically signed by Johnathon Robertson MD> Cosigner Signature (if applicable): CC: Dr. Ignacio Cheatham MD ~ Signed [facility] Work Phone: Discharge summary Author Hipolito Shepard [facility] Note Date/Time October 13, 2024 3: 11pm [facility] Medical Records Department [address] [facility] [place] [address] Instructions for Home/Discharge Instructions 10/13/24 1452 MR#: [id number] Acct: [id number] Name: Margareth GONZALEZ Rep #:[id number] : 1965 59 From: Hipolito soares MD PCP: Dr. Ignacio Cheatham MD Status:ADM I N Discharge Instructions DC O2, CPAP, BIPAP needs Home O2 Discharge instructions: No Dressing / Incision Discharge Activity: Return to Normal Activity Dressing / Incision Call your doctor if you observe: Fever of 101 or Higher, Shortness of breath, Dizziness, Fainting spells, Swelling in the ankles, Chest pain and Increased palpitations (irregular heartbeat) Follow Up Care Test Results: Test results from this visit will be discussed in further detail at your follow- up appointment, if applicable. Discharge Plan Admission Admit Date/Time: 10/10/24 20:31 Attending Provider: Hipolito Shepard Primary Care Provider: Ignacio Chaetham Consulting Providers: Sofía Hill; Son Hallman Discharge Orders/Prescriptions Prescriptions: New prednisone 20 mg Tablet 40 mg PO BREAKFAST 5 Days Qty: 10 0RF Continued cholecalciferol (vitamin D3) [Vitamin D3] 1,000 UNIT capsule 5,000 unit PO DAILY omeprazole 20 MG capsule 20 mg PO DAILY melatonin 5 MG capsule 10 mg PO QHS atorvastatin 40 mg tablet 40 mg PO QHS sevelamer carbonate 800 mg tablet 1,600 mg PO TID acetaminophen [Tylenol] 325 mg capsule 650 mg PO Q6H PRN (Reason: pain ) ondansetron HCl 4 mg tablet 4 mg PO Q8H PRN PRN (Reason: nausea and vomiting) hydroxyzine HCl 50 mg tablet 50 mg PO Q6H PRN (Reason: itching) nifedipine 90 mg tablet extended release 90 mg PO DAILY Patient Comments: [NO ORIGINAL SIG] clopidogrel 75 mg tablet 75 mg PO DAILY duloxetine 30 mg capsule,delayed release(DR/EC) 30 mg PO DAILY pregabalin 25 mg capsule 25 mg PO QHS Trulicity 0.75 mg/0.5 mL pen injector 0.75 mg subcut QWEEK torsemide 100 mg tablet 100 mg PO DAILY Velphoro 500 mg tablet,chewable 500 mg PO TID calcitriol 0.25 mcg capsule 1.5 mcg PO TUTHSA Rx Instructions: 1.5 mcg orally 3XW; albuterol sulfate 90 mcg/actuation HFA aerosol inhaler 2 puff INHALATION Q4H PRN PRN (Reason: shortness of breath or wheezing) Referrals / Follow Up: Sofía Hill MD [Med Staff - Consulting] - Ignacio Cheatham MD [Primary Care Provider] - Disposition Disposition (needs filled in before D/C Order can be placed): Home, Self Care 10/13/24 1511<Electronically signed by Hipolito Shepard MD>Hipolito Shepard MD CC: Dr. Son Hallman DO; Dr. Sofía Hill MD; Dr. Ignacio Cheatham MD ~ Signed [facility] Work Phone: Evaluation note* Diagnosis Vomiting and diarrhea- Primary Vomiting alone Nausea Nausea alone [facility] Urinary tract infection without hematuria, site unspecified- Primary [facility] Diagnosis Hyperlipidemia, unspecified hyperlipidemia type [facility] this encounter [facility]* Diagnosis Type 2 diabetes, controlled, with [...] mellitus, unspecified laterality, unspecified proliferative retinopathy type ([facility]) Anxiety with depression Screening breast examination Breast screening, unspecified Fibromyalgia Mylagia and myositis, unspecified documented [facility] this encounter [facility] the chronically ill note* Diagnosis Type 2 diabetes mellitus with stage 4 chronic kidney disease, without long-term current use of insulin (HCC)- [facility] Pre-transplant evaluation for kidney transplant- Primary Other specified pre-operative examination [facility] Diagnosis CKD (chronic kidney disease) stage 4, GFR 15-29 ml/min (HCC) Chronic kidney disease, Stage IV (severe) Pre-transplant evaluation for chronic kidney disease Other specified pre-operative examination Diabetic nephropathy associated with type 2 diabetes mellitus ([facility]) [facility] Diagnosis Pre-transplant evaluation for ESRD (end stage renal disease)- Primary Other specified pre-operative examination [facility] Diagnosis Awaiting organ transplant- Primary Awaiting organ transplant status CKD (chronic kidney disease) Stage 4, GFR 15-29 ml/min Chronic kidney disease, Stage IV (severe) Type 2 diabetes, controlled, with neuropathy ([facility]) Type II or unspecified type diabetes mellitus with neurological manifestations, not stated as uncontrolled Obesity, Class I, BMI 30-34.9 Obesity, unspecified Dietary counseling and surveillance Dietary surveillance and counseling [facility] Diagnosis Pre-transplant evaluation for kidney transplant Other specified pre-operative examination [facility] Diagnosis Pre-transplant evaluation for CKD (chronic kidney disease)- Primary Other specified pre-operative examination CKD (chronic kidney disease), stage IV (HCC) Chronic kidney disease, Stage IV (severe) Patient awaiting renal transplant Awaiting organ transplant status Personal history of DVT (deep vein thrombosis) Personal history of venous thrombosis and embolism H/O gastric bypass Bariatric surgery status [facility]* Diagnosis Poorly controlled diabetes mellitus (HCC) Type II or unspecified type diabetes mellitus without mention of complication, not stated as uncontrolled [facility] noteNo assessment information availableWCrystal [facility] Work Phone: Evaluation note* Diagnosis Hypotension, unspecified [...] Persistent proteinuria Proteinuria [facility]* Diagnosis Stage 5 chronic kidney disease not on chronic dialysis (HCC)- Primary Secondary renal hyperparathyroidism (HCC) Secondary hyperparathyroidism (of renal origin) Metabolic acidosis Acidosis Anemia of renal disease Anemia in chronic kidney disease Essential hypertension Unspecified essential hypertension Hyperlipidemia, unspecified hyperlipidemia type Vitamin D deficiency Unspecified vitamin D deficiency Persistent proteinuria Proteinuria Hyperphosphatemia Disorders of phosphorus metabolism [facility] Diagnosis CKD (chronic kidney disease) stage 5, GFR less than 15 ml/min (HCC)- Primary Chronic kidney disease, Stage V [facility]* Diagnosis CKD (chronic kidney disease) stage 5, GFR less than 15 ml/min (HCC)- Primary Chronic kidney disease, Stage V [facility] Diagnosis Pre-transplant evaluation for chronic kidney disease Other specified pre-operative examination Pre-operative cardiovascular examination Encounter for preprocedural cardiovascular examination Pre-operative cardiovascular examination [facility] Diagnosis Pre-transplant evaluation for chronic kidney disease Other specified pre-operative examination Lung nodules Other nonspecific abnormal finding of lung field [facility]* Diagnosis ESRD on dialysis (HCC)- Primary End stage renal disease [facility]* Diagnosis Type 2 diabetes, controlled, with neuropathy ([facility])- Primary Type II or unspecified type diabetes mellitus with neurological manifestations, not stated as uncontrolled Essential hypertension Unspecified essential hypertension Lung nodule Solitary pulmonary nodule Type 2 diabetes mellitus with stage 4 chronic kidney disease, without long-term current use of insulin (HCC) CKD (chronic kidney disease) Stage 4, GFR 15-29 ml/min Chronic kidney disease, Stage IV (severe) Other iron deficiency anemia Bipolar affective disorder, remission status unspecified ([facility]) Dental infection Acute apical periodontitis of pulpal origin [facility]* Diagnosis Poorly controlled type 2 diabetes mellitus (HCC)- Primary Type II or unspecified type diabetes mellitus without mention of complication, not stated as uncontrolled [facility]* Diagnosis Viral illness- Primary Unspecified viral infection, in conditions classified elsewhere and of unspecified site [facility]* Diagnosis Pulmonary nodules Other nonspecific abnormal finding of lung field [facility]* Diagnosis Poorly controlled type 2 diabetes mellitus (HCC) Type II or unspecified type diabetes mellitus without mention of complication, not stated as uncontrolled [facility] Diagnosis Poorly controlled type 2 diabetes mellitus (HCC)- Primary Type II or unspecified type diabetes mellitus without mention of complication, not stated as uncontrolled [facility]* Diagnosis Pulmonary nodules Other nonspecific abnormal finding of lung field [facility]* Diagnosis Pulmonary nodules Other nonspecific abnormal finding of lung field [facility]* Diagnosis CKD (chronic kidney disease) stage 5, GFR less than 15 ml/min (HCC)- Primary Chronic kidney disease, Stage V [facility] Diagnosis Chronic kidney disease, stage 4, severely decreased GFR (HCC)- Primary Chronic kidney disease, Stage IV (severe) Secondary renal hyperparathyroidism (HCC) Secondary hyperparathyroidism (of renal origin) Anemia of renal disease Anemia in chronic kidney disease Metabolic acidosis Acidosis Essential hypertension Unspecified essential hypertension Hyperlipidemia, unspecified hyperlipidemia type Persistent proteinuria Proteinuria Type 2 diabetes, controlled, with neuropathy ([facility]) Type II or unspecified type diabetes mellitus with neurological manifestations, not stated as uncontrolled [facility]* Diagnosis Iron malabsorption- Primary Other specified intestinal malabsorption Anemia due to stage 4 chronic kidney disease (HCC) [facility]* Diagnosis Anxiety with depression [facility] Diagnosis CKD (chronic kidney disease) Stage 4, GFR 15-29 ml/min- Primary Chronic kidney disease, Stage IV (severe) Iron malabsorption Other specified intestinal malabsorption H/O gastric bypass Bariatric surgery status [facility] Diagnosis CKD (chronic kidney disease) Stage 4, GFR 15-29 ml/min- Primary Chronic kidney disease, Stage IV (severe) Iron malabsorption Other specified intestinal malabsorption H/O gastric bypass Bariatric surgery [facility] Anemia of renal disease- Primary Anemia in chronic kidney disease CKD (chronic kidney disease) Stage 4, GFR 15-29 ml/min Chronic kidney disease, Stage IV (severe) Iron malabsorption Other specified intestinal malabsorption H/O gastric bypass Bariatric surgery status [facility] Diagnosis CKD (chronic kidney disease) Stage 4, GFR 15-29 ml/min- Primary Chronic kidney disease, Stage IV (severe) Iron malabsorption Other specified intestinal malabsorption H/O gastric bypass Bariatric surgery status [facility] Diagnosis CKD (chronic kidney disease) Stage 4, GFR 15-29 ml/min- Primary Chronic kidney disease, Stage IV (severe) [facility] Diagnosis CKD (chronic kidney disease) [...] Pain in limb [facility]* Diagnosis CKD (chronic kidney disease) Stage 4, GFR 15-29 ml/min- Primary Chronic kidney disease, Stage IV (severe) [facility]* Diagnosis Repetitive stress injury- Primary Unspecified site of sprain and strain Other diabetic neurological complication associated with type 2 diabetes mellitus (HCC) Hammertoe of left foot Callus Corns and callosities [facility]* Diagnosis Viral URI with cough- Primary Acute upper respiratory infections of unspecified site [facility] Diagnosis Iron malabsorption- Primary Other specified intestinal malabsorption Chronic kidney disease (CKD), stage IV (severe) (HCC) Chronic kidney disease, Stage IV (severe) Anemia due to stage 4 chronic kidney disease (HCC) [facility]* Diagnosis Chronic kidney disease, stage 4, severely decreased GFR (HCC)- Primary Chronic kidney disease, Stage IV (severe) [facility]* Diagnosis Urinary frequency- Primary [facility]* Diagnosis Iron malabsorption- Primary Other specified intestinal malabsorption Anemia due to stage 4 chronic kidney disease (HCC) documented in this encounter [facility] note* Diagnosis Anxiety with depression Neuropathy Mononeuritis of unspecified site [facility]* Diagnosis Post-traumatic osteoarthritis of left knee- Primary Secondary localized osteoarthrosis, lower leg Chronic pain of left knee Pain in joint, lower leg Type 2 diabetes mellitus with stage 4 chronic kidney disease, without long-term current use of insulin ([facility]) documented in this encounter [facility] note* Diagnosis CKD (chronic kidney disease) stage 5, GFR less than 15 ml/min ([facility])- Primary Chronic kidney disease, Stage V Secondary renal hyperparathyroidism ([facility]) Secondary hyperparathyroidism (of renal origin) Primary hypertension Unspecified essential hypertension Metabolic acidosis Acidosis Hyperlipidemia, unspecified hyperlipidemia type [facility]* Diagnosis Chronic pain of left knee- Primary Pain in joint, lower leg Post-traumatic osteoarthritis of left knee Secondary localized osteoarthrosis, lower leg [facility]* Diagnosis ESRD (end stage renal disease) ([facility])- Primary End stage renal disease documented in this encounter [facility] note* Diagnosis Acute UTI- Primary Urinary tract infection, site not specified ESRD (end stage renal disease) (HCC) End stage renal disease [facility]* Diagnosis Secondary renal hyperparathyroidism (HCC) Secondary hyperparathyroidism (of renal origin) ESRD (end stage renal disease) ([facility]) End stage renal disease [facility]* Diagnosis Pre-operative examination- Primary Preoperative examination, unspecified Mild intermittent asthma without complication Unspecified asthma Bipolar affective disorder, remission status unspecified ([facility]) Anemia, unspecified type Neuropathy Mononeuritis of unspecified site Gastroesophageal reflux disease, unspecified whether esophagitis present Type 2 diabetes, controlled, with neuropathy ([facility]) Type II or unspecified type diabetes [...] (BMI) of 36.0 to 36.9 in adult ([facility]) Hyperkalemia Hyperpotassemia ESRD (end stage renal disease) (HCC) End stage renal disease [facility] Diagnosis Procedure not carried out- Primary Procedure not carried out for other reasons [facility] Diagnosis CKD (chronic kidney disease) stage 5, GFR less than 15 ml/min ([facility])- Primary Chronic kidney disease, Stage V [facility]* Diagnosis End stage renal disease (HCC)- Primary End stage renal disease [facility] Diagnosis CKD (chronic kidney disease) Stage 4, GFR 15-29 ml/min- Primary Chronic kidney disease, Stage IV (severe) [facility]* Diagnosis Hyperkalemia- Primary Hyperpotassemia [facility] Diagnosis CKD (chronic kidney disease) stage 5, GFR less than 15 ml/min ([facility])- Primary Chronic kidney disease, Stage V [facility]* Diagnosis Inability to ambulate due to multiple joints- Primary Difficulty in walking Superficial phlebitis of right leg Phlebitis and thrombophlebitis of superficial vessels of lower extremities Type 2 diabetes, controlled, with neuropathy ([facility]) Type II or unspecified type diabetes mellitus with neurological manifestations, not stated as uncontrolled Essential hypertension Unspecified essential hypertension [facility] Diagnosis CKD (chronic kidney disease) stage 5, GFR less than 15 ml/min ([facility])- Primary Chronic kidney disease, Stage V Anemia of renal disease Anemia in chronic kidney disease Hyperkalemia Hyperpotassemia Metabolic acidosis Acidosis Hypocalcemia [facility]* Diagnosis Onset Date Resolution Status Inability to walk acute Obesity acute Right leg pain acute Benign essential hypertension chronic History of diabetes mellitus, type II chronic Kidney disease, chronic, stage IV (GFR 15-29 ml/min) chronic [facility] Work Phone: Evaluation note* Diagnosis CKD (chronic kidney disease) stage 5, GFR less than 15 ml/min ([facility]) Chronic kidney disease, Stage V Hyperphosphatemia Disorders of phosphorus metabolism [facility]* Diagnosis Onset Date Resolution Status Inability to walk acute Right leg pain acute [facility] Work Phone: Evaluation note* Diagnosis Acute post-operative pain [facility]* Diagnosis Pain of right lower extremity- Primary Mixed hyperlipidemia Abnormal x-ray Other nonspecific (abnormal) findings on radiological and other examinations of body structure Lumbar radiculopathy Thoracic or lumbosacral neuritis or radiculitis, unspecified Primary hypertension Unspecified essential hypertension Type 2 diabetes, controlled, with neuropathy ([facility]) Type II or unspecified type diabetes mellitus with neurological manifestations, not stated as uncontrolled End stage renal disease ([facility]) End stage renal disease Anxiety Anxiety state, unspecified [facility]* Diagnosis Neuropathy of hand, unspecified laterality- Primary Encounter for drug screening Other specified examination [facility]* Diagnosis Dysuria- Primary [facility]* Diagnosis Dysuria- Primary [facility]* Diagnosis Stress fracture of right tibia, initial encounter- Primary Pain of right lower extremity [facility]* Diagnosis Stress fracture of right tibia, initial encounter- Primary [facility]* Diagnosis Right elbow pain Pain in joint, upper arm [facility]* Diagnosis Stress fracture of right tibia, initial encounter [facility]* Diagnosis Chronic pain of left knee Pain in joint, lower leg [facility]* Diagnosis Pain of right lower extremity Stress fracture of left tibia, initial encounter [facility]* Diagnosis Screening breast examination Breast screening, unspecified [facility] Diagnosis CKD (chronic kidney disease) stage 5, GFR less than 15 ml/min ([facility]) Chronic kidney disease, Stage V [facility] Diagnosis Intervertebral disc stenosis of neural canal of lumbar region- Primary Spinal stenosis, lumbar region, without neurogenic claudication Stress fracture of right tibia with routine healing, subsequent encounter [facility] Diagnosis Onset Date Resolution Status ESRD (end stage renal disease) on dialysis acute Fracture of right lower extremity acute History of COPD chronic [facility] Work Phone: Evaluation note* Diagnosis Type 2 diabetes, controlled, with neuropathy (HCC) Type II or unspecified type diabetes mellitus with neurological manifestations, not stated as uncontrolled [facility] Diagnosis Onset Date Resolution Status Anemia [...] chronic History of tobacco use chron ic [facility] Work Phone: Evaluation note* Diagnosis Onset Date Resolution Status Secondary hyperparathyroidism resolved [facility] Work Phone: Evaluation note* Diagnosis Lung nodules Other nonspecific abnormal finding of lung field [facility] Diagnosis Lung nodules- Primary Other nonspecific abnormal finding of lung field [facility] Diagnosis 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, with long-term current use of insulin (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, controlled, with neuropathy (HCC) Type II or unspecified type diabetes mellitus with neurological manifestations, not stated as uncontrolled Open wound of toe of right foot Diminished pulses in lower extremity Other symptoms involving cardiovascular system Hammertoe, bilateral [facility] Diagnosis Encounter for screening mammogram for breast cancer [facility]* Diagnosis 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 [facility] Diagnosis 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- Primary documented in this encounter [facility] note* Diagnosis 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- Primary documented in this encounter [facility] note* Diagnosis 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 documented in this encounter [facility] note* Diagnosis 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 documented in this encounter [facility] note* Diagnosis 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- Primary documented in this encounter [facility] note* Diagnosis 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) Anemia, unspecified type Neuropathy Mononeuritis of [...] (BMI) of 36.0 to 36.9 in adult ([facility]) Hyperkalemia Hyperpotassemia Foot pain, right Pain in limb Acute right ankle pain documented in this encounter [facility] note* Diagnosis Neck pain Cervicalgia Rib pain on right side Chest pain, unspecified Pre-operative examination- Primary Preoperative examination, unspecified Mild intermittent asthma without complication Unspecified asthma Bipolar affective disorder, remission status unspecified ([facility]) Anemia, unspecified type Neuropathy Mononeuritis of [...] hypercoagulable state ESRD (end stage renal disease) ([facility]) End stage renal disease Pulmonary nodules Other nonspecific abnormal finding of lung field Class 2 severe obesity due to excess calories with serious comorbidity and body mass index (BMI) of 36.0 to 36.9 in adult ([facility]) Hyperkalemia Hyperpotassemia documented in this encounter [facility] note* Diagnosis Pre-operative examination- Primary Preoperative examination, unspecified Mild intermittent asthma without complication Unspecified asthma Bipolar affective disorder, remission status unspecified ([facility]) Anemia, unspecified type Neuropathy Mononeuritis of unspecified site Gastroesophageal reflux disease, unspecified whether esophagitis present Type 2 diabetes, controlled, with neuropathy ([facility]) Type II or unspecified type diabetes mellitus with neurological manifestations, not stated as uncontrolled H/O gastric bypass Bariatric surgery status Essential hypertension Unspecified essential hypertension Mixed hyperlipidemia Personal history of DVT (deep vein thrombosis) Personal history of venous thrombosis and embolism Hypercoagulable state (HCC) Primary hypercoagulable state ESRD (end stage renal disease) ([facility]) End stage renal disease Pulmonary nodules Other nonspecific abnormal finding of lung field Class 2 severe obesity due to excess calories with serious comorbidity and body mass index (BMI) of 36.0 to 36.9 in adult ([facility]) Hyperkalemia Hyperpotassemia Pathological fracture of both tibia and fibula of right lower extremity due to other disease with delayed healing, subsequent encounter- Primary Anxiety Anxiety state, unspecified ESRD (end stage renal disease) ([facility]) End stage renal disease Dental infection Acute apical periodontitis of pulpal origin Neuropathy Mononeuritis of unspecified site Mixed hyperlipidemia Encounter for immunization Need for other specified prophylactic vaccination against single bacterial disease Type 2 diabetes mellitus with stage 4 chronic kidney disease, without long-term current use of insulin ([facility]) Gastroesophageal reflux disease, unspecified whether esophagitis present CASSIE (obstructive sleep apnea) Obstructive sleep apnea (adult) (pediatric) documented in this encounter [facility] note* Diagnosis Pre-operative examination- Primary Preoperative examination, unspecified Mild intermittent asthma without complication Unspecified asthma Bipolar affective disorder, remission status unspecified ([facility]) Anemia, unspecified type Neuropathy Mononeuritis of unspecified site Gastroesophageal reflux disease, unspecified whether esophagitis present Type 2 diabetes, controlled, with neuropathy ([facility]) Type II or unspecified type diabetes mellitus with neurological manifestations, not stated as uncontrolled H/O gastric bypass Bariatric surgery status Essential hypertension Unspecified essential hypertension Mixed hyperlipidemia Personal history of DVT (deep vein thrombosis) Personal history of venous thrombosis and embolism Hypercoagulable state (HCC) Primary hypercoagulable state ESRD (end stage renal disease) ([facility]) End stage renal disease Pulmonary nodules Other nonspecific abnormal finding of lung field Class 2 severe obesity due to excess calories with serious comorbidity and body mass index (BMI) of 36.0 to 36.9 in adult ([facility]) Hyperkalemia Hyperpotassemia Type 2 diabetes, controlled, with neuropathy ([facility])- Primary Type II or unspecified type diabetes mellitus with neurological manifestations, not stated as uncontrolled Primary hypertension Unspecified essential hypertension Mixed hyperlipidemia CASSIE (obstructive sleep apnea) Obstructive sleep apnea (adult) (pediatric) ESRD (end stage renal disease) ([facility]) End stage renal disease Proliferative diabetic retinopathy associated with type 2 diabetes mellitus, unspecified laterality, unspecified proliferative retinopathy type (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) Personal history of DVT (deep vein thrombosis) Personal history of venous thrombosis and embolism [facility] Diagnosis Pre-operative examination- Primary Preoperative examination, unspecified Mild intermittent asthma without complication Unspecified asthma Bipolar affective disorder, remission status unspecified ([facility]) Anemia, unspecified type Neuropathy Mononeuritis of unspecified site Gastroesophageal reflux disease, unspecified whether esophagitis present Type 2 diabetes, controlled, with neuropathy ([facility]) Type II or unspecified type diabetes mellitus with neurological manifestations, not stated as uncontrolled H/O gastric bypass Bariatric surgery status Essential hypertension Unspecified essential hypertension Mixed hyperlipidemia Personal history of DVT (deep vein thrombosis) Personal history of venous thrombosis and embolism Hypercoagulable state (HCC) Primary hypercoagulable state ESRD (end stage renal disease) ([facility]) End stage renal disease Pulmonary nodules Other nonspecific abnormal finding of lung field Class 2 severe obesity due to excess calories with serious comorbidity and body mass index (BMI) of 36.0 to 36.9 in adult (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) Anemia, unspecified type Neuropathy Mononeuritis of [...] (BMI) of 36.0 to 36.9 in adult ([facility]) Hyperkalemia Hyperpotassemia CASSIE (obstructive sleep apnea)- Primary Obstructive sleep apnea (adult) (pediatric) Controlled type 2 diabetes mellitus without complication, without long-term current use of insulin ([facility])- Primary [facility]* Diagnosis Pre-operative examination- Primary Preoperative examination, unspecified Mild intermittent asthma without complication Unspecified asthma Bipolar affective disorder, remission status unspecified ([facility]) Anemia, unspecified type Neuropathy Mononeuritis of unspecified site Gastroesophageal reflux disease, unspecified whether esophagitis present Type 2 diabetes, controlled, with neuropathy ([facility]) Type II or unspecified type diabetes mellitus with neurological manifestations, not stated as uncontrolled H/O gastric bypass Bariatric surgery status Essential hypertension Unspecified essential hypertension Mixed hyperlipidemia Personal history of DVT (deep vein thrombosis) Personal history of venous thrombosis and embolism Hypercoagulable state (HCC) Primary hypercoagulable state ESRD (end stage renal disease) ([facility]) End stage renal disease Pulmonary nodules Other nonspecific abnormal finding of lung field Class 2 severe obesity due to excess calories with serious comorbidity and body mass index (BMI) of 36.0 to 36.9 in adult ([facility]) Hyperkalemia Hyperpotassemia Type 2 diabetes, controlled, with neuropathy ([facility])- Primary Type II or unspecified type diabetes mellitus with neurological manifestations, not stated as uncontrolled [facility]* Diagnosis Pre-operative examination- Primary Preoperative examination, unspecified Mild intermittent asthma without complication Unspecified asthma Bipolar affective disorder, remission status unspecified ([facility]) Anemia, unspecified type Neuropathy Mononeuritis of unspecified site Gastroesophageal reflux disease, unspecified whether esophagitis present Type 2 diabetes, controlled, with neuropathy ([facility]) Type II or unspecified type diabetes mellitus with neurological manifestations, not stated as uncontrolled H/O gastric bypass Bariatric surgery status Essential hypertension Unspecified essential hypertension Mixed hyperlipidemia Personal history of DVT (deep vein thrombosis) Personal history of venous thrombosis and embolism Hypercoagulable state (HCC) Primary hypercoagulable state ESRD (end stage renal disease) ([facility]) End stage renal disease Pulmonary nodules Other nonspecific abnormal finding of lung field Class 2 severe obesity due to excess calories with serious comorbidity and body mass index (BMI) of 36.0 to 36.9 in adult ([facility]) Hyperkalemia Hyperpotassemia Stenosis of arteriovenous graft, 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[facility])- Primary ESRD (end stage renal disease) ([facility]) End stage renal disease documented in this encounter [facility] note* Diagnosis Pre-operative examination- Primary Preoperative examination, unspecified Mild intermittent asthma without complication Unspecified asthma Bipolar affective disorder, remission status unspecified ([facility]) Anemia, unspecified type Neuropathy Mononeuritis of unspecified site Gastroesophageal reflux disease, unspecified whether esophagitis present Type 2 diabetes, controlled, with neuropathy ([facility]) Type II or unspecified type diabetes mellitus with neurological manifestations, not stated as uncontrolled H/O gastric bypass Bariatric surgery status Essential hypertension Unspecified essential hypertension Mixed hyperlipidemia Personal history of DVT (deep vein thrombosis) Personal history of venous thrombosis and embolism Hypercoagulable state ([facility]) Primary hypercoagulable state ESRD (end stage renal disease) ([facility]) End stage renal disease Pulmonary nodules Other nonspecific abnormal finding of lung field Class 2 severe obesity due to excess calories with serious comorbidity and body mass index (BMI) of 36.0 to 36.9 in adult ([facility]) Hyperkalemia Hyperpotassemia TIA (transient ischemic attack)- Primary Unspecified transient cerebral ischemia Type 2 diabetes, controlled, with neuropathy ([facility]) Type II or unspecified type diabetes mellitus with neurological manifestations, not stated as uncontrolled Primary hypertension Unspecified essential hypertension Type 2 diabetes mellitus with stage 4 chronic kidney disease, without long-term current use of insulin ([facility]) ESRD (end stage renal disease) ([facility]) End stage renal disease Spinal stenosis of lumbar region, unspecified whether neurogenic claudication present Anxiety Anxiety state, unspecified [facility]* Diagnosis Pre-operative examination- Primary Preoperative examination, unspecified Mild intermittent asthma without complication Unspecified asthma Bipolar affective disorder, remission status unspecified ([facility]) Anemia, unspecified type Neuropathy Mononeuritis of unspecified site Gastroesophageal reflux disease, unspecified whether esophagitis present Type 2 diabetes, controlled, with neuropathy ([facility]) Type II or unspecified type diabetes mellitus with neurological manifestations, not stated as uncontrolled H/O gastric bypass Bariatric surgery status Essential hypertension Unspecified essential hypertension Mixed hyperlipidemia Personal history of DVT (deep vein thrombosis) Personal history of venous thrombosis and embolism Hypercoagulable state (HCC) Primary hypercoagulable state ESRD (end stage renal disease) ([facility]) End stage renal disease Pulmonary nodules Other nonspecific abnormal finding of lung field Class 2 severe obesity due to excess calories with serious comorbidity and body mass index (BMI) of 36.0 to 36.9 in adult ([facility]) Hyperkalemia Hyperpotassemia Dental decay- Primary Unspecified dental caries [facility]* Diagnosis Pre-operative examination- Primary Preoperative examination, unspecified Mild intermittent asthma without complication Unspecified asthma Bipolar affective disorder, remission status unspecified ([facility]) Anemia, unspecified type Neuropathy Mononeuritis of unspecified site Gastroesophageal reflux disease, unspecified whether esophagitis present Type 2 diabetes, controlled, with neuropathy ([facility]) Type II or unspecified type diabetes mellitus with neurological manifestations, not stated as uncontrolled H/O gastric bypass Bariatric surgery status Essential hypertension Unspecified essential hypertension Mixed hyperlipidemia Personal history of DVT (deep vein thrombosis) Personal history of venous thrombosis and embolism Hypercoagulable state ([facility]) Primary hypercoagulable state ESRD (end stage renal disease) ([facility]) End stage renal disease Pulmonary nodules Other nonspecific abnormal finding of lung field Class 2 severe obesity due to excess calories with serious comorbidity and body mass index (BMI) of 36.0 to 36.9 in adult ([facility]) Hyperkalemia Hyperpotassemia ESRD (end stage renal disease) ([facility])- Primary End stage renal disease Proliferative diabetic retinopathy associated with type 2 diabetes mellitus, unspecified laterality, unspecified proliferative retinopathy type ([facility]) TIA (transient ischemic attack) Unspecified transient cerebral ischemia [facility]* Diagnosis Pre-operative examination- Primary Preoperative examination, unspecified Mild intermittent asthma without complication Unspecified asthma Bipolar affective disorder, remission status unspecified ([facility]) Anemia, unspecified type Neuropathy Mononeuritis of [...] hypercoagulable state ESRD (end stage renal disease) ([facility]) End stage renal disease Pulmonary nodules Other nonspecific abnormal finding of lung field Class 2 severe obesity due to excess calories with serious comorbidity and body mass index (BMI) of 36.0 to 36.9 in adult ([facility]) Hyperkalemia Hyperpotassemia Encounter for screening mammogram for breast cancer documented [facility]* Diagnosis Pre-operative examination- Primary Preoperative examination, unspecified Mild intermittent asthma without complication ([facility]) Unspecified asthma Bipolar affective disorder, remission status unspecified ([facility]) Anemia, unspecified type Neuropathy Mononeuritis of unspecified site Gastroesophageal reflux disease, unspecified whether esophagitis present Type 2 diabetes, controlled, with neuropathy ([facility]) Type II or unspecified type diabetes mellitus with neurological manifestations, not stated as uncontrolled H/O gastric bypass Bariatric surgery status Essential hypertension Unspecified essential hypertension Mixed hyperlipidemia Personal history of DVT (deep vein thrombosis) Personal history of venous thrombosis and embolism Hypercoagulable state (HCC) Primary hypercoagulable state ESRD (end stage renal disease) ([facility]) End stage renal disease Pulmonary nodules Other nonspecific abnormal finding of lung field Class 2 severe obesity due to excess calories with serious comorbidity and body mass index (BMI) of 36.0 to 36.9 in adult ([facility]) Hyperkalemia Hyperpotassemia Type 2 diabetes, controlled, with neuropathy ([facility])- Primary Type II or unspecified type [...] extremities End stage renal disease on dialysis ([facility]) End stage renal disease Sleep apnea, unspecified type [facility]* Diagnosis Pre-operative examination- Primary Preoperative examination, unspecified Mild intermittent asthma without complication ([facility]) Unspecified asthma Bipolar affective disorder, remission status unspecified ([facility]) Anemia, unspecified type Neuropathy Mononeuritis of [...] hypercoagulable state ESRD (end stage renal disease) ([facility]) End stage renal disease Pulmonary nodules Other nonspecific abnormal finding of lung field Class 2 severe obesity due to excess calories with serious comorbidity and body mass index (BMI) of 36.0 to 36.9 in adult ([facility]) Hyperkalemia Hyperpotassemia Type 2 diabetes, controlled, with neuropathy ([facility])- Primary Type II or unspecified type diabetes mellitus with neurological manifestations, not stated as uncontrolled [facility]* Diagnosis Pre-operative examination- Primary Preoperative examination, unspecified Mild intermittent asthma without complication (HCC) Unspecified asthma Bipolar affective disorder, remission status unspecified ([facility]) Anemia, unspecified type Neuropathy Mononeuritis of unspecified site Gastroesophageal reflux disease, unspecified whether esophagitis present Type 2 diabetes, controlled, with neuropathy ([facility]) Type II or unspecified type diabetes mellitus with neurological manifestations, not stated as uncontrolled H/O gastric bypass Bariatric surgery status Essential hypertension Unspecified essential hypertension Mixed hyperlipidemia Personal history of DVT (deep vein thrombosis) Personal history of venous thrombosis and embolism Hypercoagulable state (HCC) Primary hypercoagulable state ESRD (end stage renal disease) ([facility]) End stage renal disease Pulmonary nodules Other nonspecific abnormal finding of lung field Class 2 severe obesity due to excess calories with serious comorbidity and body mass index (BMI) of 36.0 to 36.9 in adult ([facility]) Hyperkalemia Hyperpotassemia RLS (restless legs syndrome)- Primary Restless legs syndrome (RLS) Insomnia, unspecified type CASSIE (obstructive sleep apnea) Obstructive sleep apnea (adult) (pediatric) Stage 5 chronic kidney disease on chronic dialysis ([facility]) Diabetes mellitus treated with injections of non-insulin medication ([facility])- Primary [facility]* Diagnosis Pre-operative examination- Primary Preoperative examination, unspecified Mild intermittent asthma without complication ([facility]) Unspecified asthma Bipolar affective disorder, remission status unspecified ([facility]) Anemia, unspecified type Neuropathy Mononeuritis of [...] (BMI) of 36.0 to 36.9 in adult ([facility]) Hyperkalemia Hyperpotassemia Diabetes mellitus treated with injections of non-insulin medication ([facility])- Primary Type 2 diabetes, controlled, with neuropathy ([facility]) Type II or unspecified type diabetes mellitus with neurological manifestations, not stated as uncontrolled [facility] Diagnosis Pre-operative examination- Primary Preoperative examination, unspecified Mild intermittent asthma without complication ([facility]) Unspecified asthma Bipolar affective disorder, remission status unspecified ([facility]) Anemia, unspecified type Neuropathy Mononeuritis of unspecified site Gastroesophageal reflux disease, unspecified whether esophagitis present Type 2 diabetes, controlled, with neuropathy ([facility]) Type II or unspecified type diabetes [...] (BMI) of 36.0 to 36.9 in adult ([facility]) Hyperkalemia Hyperpotassemia 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, with long-term current use of insulin ([facility])- Primary Presbyopia Pseudophakia of both eyes Lens replaced by other means [facility]* Diagnosis Pre-operative examination- Primary Preoperative examination, unspecified Mild intermittent asthma without complication (HCC) Unspecified asthma Bipolar affective disorder, remission status unspecified ([facility]) Anemia, unspecified type Neuropathy Mononeuritis of [...] (BMI) of 36.0 to 36.9 in adult ([facility]) Hyperkalemia Hyperpotassemia Lung nodules Other nonspecific abnormal finding of lung field [facility]* Diagnosis Pre-operative examination- Primary Preoperative examination, unspecified Mild intermittent asthma without complication (HCC) Unspecified asthma Bipolar affective disorder, remission status unspecified ([facility]) Anemia, unspecified type Neuropathy Mononeuritis of [...] Unspecified essential hypertension [facility] Diagnosis Pre-operative examination- Primary Preoperative examination, unspecified Mild intermittent asthma without complication (HCC) Unspecified asthma Bipolar affective disorder, remission status unspecified ([facility]) Anemia, unspecified type Neuropathy Mononeuritis of [...] renal disease ESRD (end stage renal disease) ([facility]) End stage renal disease documented in this encounter [facility] note* Diagnosis Pre-operative examination- Primary Preoperative examination, unspecified Mild intermittent asthma without complication ([facility] [facility]) Unspecified asthma Bipolar affective disorder, remission status unspecified ([facility]) Anemia, unspecified type Neuropathy Mononeuritis of unspecified site Gastroesophageal reflux disease, unspecified whether esophagitis present Type 2 diabetes, controlled, with neuropathy ([facility]) Type II or unspecified type diabetes mellitus with neurological manifestations, not stated as uncontrolled H/O gastric bypass Bariatric surgery status Essential hypertension Unspecified essential hypertension Mixed hyperlipidemia Personal history of DVT (deep vein thrombosis) Personal history of venous thrombosis and embolism Hypercoagulable state (HCC) Primary hypercoagulable state ESRD (end stage renal disease) ([facility]) End stage renal disease Pulmonary nodules Other nonspecific abnormal finding of lung field Class 2 severe obesity due to excess calories with serious comorbidity and body mass index (BMI) of 36.0 to 36.9 in adult (HCC) Hyperkalemia Hyperpotassemia Acute exacerbation of chronic obstructive pulmonary disease ([facility])- Primary Obstructive chronic bronchitis with exacerbation Irritable bowel syndrome, unspecified type ESRD (end stage renal disease) ([facility]) End stage renal disease documented in this encounter [facility] note* Diagnosis Pre-operative examination- Primary Preoperative examination, unspecified Mild intermittent asthma without complication ([facility]) Unspecified asthma Bipolar affective disorder, remission status unspecified ([facility]) Anemia, unspecified type Neuropathy Mononeuritis of [...] (BMI) of 36.0 to 36.9 in adult ([facility]) Hyperkalemia Hyperpotassemia Lung nodules- Primary Other nonspecific abnormal finding of lung field Mild intermittent asthma without complication (HCC) Unspecified asthma ESRD (end stage renal disease) on dialysis (HCC) End stage renal disease [facility] Diagnosis Pre-operative examination- Primary Preoperative examination, unspecified Mild intermittent asthma without complication ([facility]) Unspecified asthma Bipolar affective disorder, remission status unspecified ([facility]) Anemia, unspecified type Neuropathy Mononeuritis of unspecified site Gastroesophageal reflux disease, unspecified whether esophagitis present Type 2 diabetes, controlled, with neuropathy ([facility]) Type II or unspecified type diabetes mellitus with neurological manifestations, not stated as uncontrolled H/O gastric bypass Bariatric surgery status Essential hypertension Unspecified essential hypertension Mixed hyperlipidemia Personal history of DVT (deep vein thrombosis) Personal history of venous thrombosis and embolism Hypercoagulable state (HCC) Primary hypercoagulable state ESRD (end stage renal disease) ([facility]) End stage renal disease Pulmonary nodules Other nonspecific abnormal finding of lung field Class 2 severe obesity due to excess calories with serious comorbidity and body mass index (BMI) of 36.0 to 36.9 in adult ([facility]) Hyperkalemia Hyperpotassemia RLS (restless legs syndrome) Restless legs syndrome (RLS) Insomnia, unspecified type documented in this encounter [facility] note* Diagnosis Pre-operative examination- Primary Preoperative examination, unspecified Mild intermittent asthma without complication (HCC) Unspecified asthma Bipolar affective disorder, remission status unspecified ([facility]) Anemia, unspecified type Neuropathy Mononeuritis of unspecified site Gastroesophageal reflux disease, unspecified whether esophagitis present Type 2 diabetes, controlled, with neuropathy ([facility]) Type II or unspecified type diabetes [...] (BMI) of 36.0 to 36.9 in adult ([facility]) Hyperkalemia Hyperpotassemia Anxiety Anxiety state, unspecified documented in this encounter [facility] note* Diagnosis Pre-operative examination- Primary Preoperative examination, unspecified Mild intermittent asthma without complication (HCC) Unspecified asthma Bipolar affective disorder, remission status unspecified ([facility]) Anemia, unspecified type Neuropathy Mononeuritis of unspecified site Gastroesophageal reflux disease, unspecified whether esophagitis present Type 2 diabetes, controlled, with neuropathy ([facility]) Type II or unspecified type diabetes mellitus with neurological manifestations, not stated as uncontrolled H/O gastric bypass Bariatric surgery status Essential hypertension Unspecified essential hypertension Mixed hyperlipidemia Personal history of DVT (deep vein thrombosis) Personal history of venous thrombosis and embolism Hypercoagulable state ([facility]) Primary hypercoagulable state ESRD (end stage renal disease) ([facility]) End stage renal disease Pulmonary nodules Other nonspecific abnormal finding of lung field Class 2 severe obesity due to excess calories with serious comorbidity and body mass index (BMI) of 36.0 to 36.9 in adult ([facility]) Hyperkalemia Hyperpotassemia Lung nodules- Primary Other nonspecific abnormal finding of lung field Abnormal CT scan, lung Other nonspecific abnormal finding of lung field documented in this encounter [facility] note* Diagnosis Pre-operative examination- Primary Preoperative examination, unspecified Mild intermittent asthma without complication ([facility]) Unspecified asthma Bipolar affective disorder, remission status unspecified ([facility]) Anemia, unspecified type Neuropathy Mononeuritis of unspecified site Gastroesophageal reflux disease, unspecified whether esophagitis present Type 2 diabetes, controlled, with neuropathy ([facility]) Type II or unspecified type diabetes mellitus with neurological manifestations, not stated as uncontrolled H/O gastric bypass Bariatric surgery status Essential hypertension Unspecified essential hypertension Mixed hyperlipidemia Personal history of DVT (deep vein thrombosis) Personal history of venous thrombosis and embolism Hypercoagulable state (HCC) Primary hypercoagulable state ESRD (end stage renal disease) ([facility]) End stage renal disease Pulmonary nodules Other nonspecific abnormal finding of lung field Class 2 severe obesity due to excess calories with serious comorbidity and body mass index (BMI) of 36.0 to 36.9 in adult ([facility]) Hyperkalemia Hyperpotassemia RLS (restless legs syndrome) Restless legs syndrome (RLS) Insomnia, unspecified type [facility] Diagnosis Pre-operative examination- Primary Preoperative examination, unspecified Mild intermittent asthma without complication ([facility]) Unspecified asthma Bipolar affective disorder, remission status unspecified ([facility]) Anemia, unspecified type Neuropathy Mononeuritis of unspecified site Gastroesophageal reflux disease, unspecified whether esophagitis present Type 2 diabetes, controlled, with neuropathy ([facility]) Type II or unspecified type diabetes mellitus with neurological manifestations, not stated as uncontrolled H/O gastric bypass Bariatric surgery status Essential hypertension Unspecified essential hypertension Mixed hyperlipidemia Personal history of DVT (deep vein thrombosis) Personal history of venous thrombosis and embolism Hypercoagulable state (HCC) Primary hypercoagulable state ESRD (end stage renal disease) ([facility]) End stage renal disease Pulmonary nodules Other nonspecific abnormal finding of lung field Class 2 severe obesity due to excess calories with serious comorbidity and body mass index (BMI) of 36.0 to 36.9 in adult ([facility]) Hyperkalemia Hyperpotassemia ESRD (end stage renal disease) on dialysis ([facility])- Primary End stage renal disease Chronic obstructive pulmonary disease with acute lower respiratory infection ([facility]) Obstructive chronic bronchitis with exacerbation Primary hypertension Unspecified essential hypertension Bacterial pneumonia Bacterial pneumonia, unspecified Chronic midline low back pain without sciatica Chronic respiratory failure with hypoxia ([facility]) Chronic respiratory failure Screening for depression Seasonal allergic rhinitis, unspecified trigger [facility] Additional Instructions take half of the labetalol, so will take 50 mg twice a day instead of 100 mg twice a day. Follow-up with your PCP in 2 days and your asbestos cloth inspector in the next few days. [facility] Work Phone: Hospital Discharge instructions Additional Instructions Return tomorrow to have an ultrasound of your right leg to rule out a blood clot. Please follow-up with your PCP or orthopedic doctor.[facility] Work Phone: Hospital Discharge instructions Additional Instructions Call your orthopedic surgeon for close follow-up, recheck, repeat x-rays.[facility] Work Phone: Hospital Discharge instructions Additional Instructions Ice to all sore areas. Tylenol Motrin for pain. Your x-rays today showed no new injuries. Healing fractures of your tibia and fibula. Follow-up with your doctors as needed.[facility] Work Phone: Hospital Discharge instructionsAdditional Instructions Follow-up with your doctor to ensure you are improving. Your tests today were unremarkable. I do not know the specific cause of your pain. Follow-up with your doctor for further evaluation. May want to consider discussing with them outpatient stress testing. Return the emergency department if you are feeling a lot worse.[facility] Work Phone: Hospital Discharge instructionsAdditional Instructions You shortness of breath due to fluid in your lungs which improved after removing greater than 4 L of fluid from your lungs. Continue to monitor weight daily. Follow-up with dialysis per routine.[facility] Work Phone: Reason for referral (narrative)* Diagnostic Procedure Only (Routine) - Pending Review Specialty Diagnoses / Procedures Referred By Allison beasley Referred To Contact BR IMAGING Diagnoses Screening breast examination Procedures MARYLU SCREENING SCREENING MAMMOGRAPHY BI 2-VIEW BREAST INC CAD Ignacio Cheatham MD [address] [place] [address] [facility] [address] [place] [address] Referral ID Status Reason Start Date Expiration Date Visits Requested Visits Authorized [id number] Pending Review Auto-Generat ed Referral 06/26/2021 07/26/2022 1 1 [facility] for referral (narrative)* Outpatient Procedure (Routine) - Pending Review Specialty Diagnoses / Procedures Referred By Contac t Referred To Contact [facility] Diagnoses CKD (chronic kidney disease) stage 5, GFR less than 15 ml/min ([facility]) Procedures UPPER EXT MAP FOR DIALYSIS ACCESS [facility] VESSEL MAPPING HEMO ACCESS Jonathan Valenzuela MD [address] [place] [address] [facility] [place] [address] [place] [address] Referral ID Status Reason Start Date Expiration Date Visits Requested Visits Authorized [id number] Pending Review Auto-Generat ed Referral 08/13/2021 08/13/2022 1 1 [facility] for referral (narrative)* Diagnostic Procedure Only (Urgent) - Closed Specialty Diagnoses / Procedures Referred By Allison t Referred To Contact MOLECULAR & FUNCTIONAL IMAGING Diagnoses Pre-transplant evaluation for chronic kidney disease Pre-operative cardiovascular examination Encounter for preprocedural cardiovascular examination Procedures NM CARDIAC PERF STRESS/PHARM MYOCARDIAL SPECT MULTIPLE STUDIES Luis Mejia MD [address] [place] [address] Molecular [facility] Functional Imaging [address] [place] [id number] Referral ID Status Reason Start Date Expiration Date V isits Requested Visits Authorized [id number] Closed Auto-Generated Referral Patient Cleared - INN Insurance Found 07/19/2021 08/17/2021 1 1 [facility] for referral (narrative)* Diagnostic Procedure Only (Routine) - Pending Review Specialty Diagnoses / Procedures Referred By Allison beasley Referred To Contact XR IMAGING Diagnoses CKD (chronic kidney disease) stage 5, GFR less than 15 ml/min (HCC) Procedures XR CHEST 1V FRONTAL RADIOLOGIC EXAM CHEST SINGLE VIEW Goldy Hunter DO [address] [place] [address] Xr Imaging Referral ID Status Reason Start Date Expiration Date Visits Requested Visits Authorized [id number] Pending Review Auto-Generat ed Referral 08/05/2022 09/04/2023 1 1 [facility] for referral (narrative)* Diagnostic Procedure Only (Routine) - Closed Specialty Diagnoses / Procedures [facility] Referred To Contact XR IMAGING Diagnoses Pain of right lower extremity Stress fracture of right tibia, initial encounter Procedures XR TIBIA FIBULA 2V AP/LAT RIGHT RADIOLOGIC EXAMINATION TIBIA & FIBULA 2 VIEWS Reagan Riggs MD [address] [place] [address] [place] [address] Referral ID Status Reason Start Date Expiration Date V isits Requested Visits Authorized [id number] Closed Auto-Generate d Referral 11/10/2022 12/10/2023 1 1 [facility] for referral (narrative)* Diagnostic Procedure Only (Routine) - Pending Review Specialty Diagnoses / Procedures Referred By Contac t Referred To Contact XR IMAGING Diagnoses Stress fracture of right tibia, initial encounter Procedures XR TIBIA FIBULA 2V AP/LAT RIGHT RADIOLOGIC EXAMINATION TIBIA & FIBULA 2 VIEWS Reagan Riggs MD [address] [place] [address] [place] [address] Referral ID Status Reason Start Date Expiration Date Visits Requested Visits Authorized [id number] Pending Review Auto-Generat ed Referral 01/09/2024 1 1 [facility] for referral (narrative)* Diagnostic Procedure Only (Routine) - Closed Specialty Diagnoses / Procedures Referred By Contac t Referred To Contact XR IMAGING Diagnoses Right elbow pain Procedures XR ELBOW GENERAL 2V AP/LAT RIGHT RADEX ELBOW 2 VIEWS Ignacio Cheatham MD [address] [place] [address] [place] [address] Referral ID Status Reason Start Date Expiration Date V isits Requested Visits Authorized [id number] Closed Auto-Generate d Referral 08/11/2022 09/10/2023 1 1 T [facility] for referral (narrative)* Diagnostic Procedure Only (Routine) - Closed Specialty Diagnoses / Procedures Referred By Contac t Referred To Contact XR IMAGING Diagnoses Stress fracture of right tibia, initial encounter Procedures XR TIBIA FIBULA 2V AP/LAT RIGHT RADIOLOGIC EXAMINATION TIBIA & FIBULA 2 VIEWS Reagan Riggs MD [address] [place] [address] [place] [address] Referral ID Status Reason Start Date Expiration Date V isits Requested Visits Authorized [id number] Closed Auto-Generate d Referral 12/10/2022 01/09/2024 1 1 [facility] for referral (narrative)* Diagnostic Procedure Only (Routine) - Closed Specialty Diagnoses / Procedures Referred By Contac t Referred To Contact XR IMAGING Diagnoses Chronic pain of left knee Procedures XR KNEE GENERAL 4V AP BOTH/PA BOTH/LAT/MERC LEFT RADIOLOGIC EXAM KNEE COMPLETE 4/MORE VIEWS Ignacio Cheatham MD [address] [place] [address] [place] [address] Referral ID Status Reason Start Date Expiration Date V isits Requested Visits Authorized [id number] Closed Auto-Generate d Referral 03/21/2022 04/20/2023 1 1 [facility] for referral (narrative)* Diagnostic Procedure Only (Routine) - Closed Specialty Diagnoses / Procedures Referred By Contac t Referred To Contact XR IMAGING Diagnoses Pain of right lower extremity Stress fracture of right tibia, initial encounter Procedures XR TIBIA FIBULA 2V AP/LAT RIGHT RADIOLOGIC EXAMINATION TIBIA & FIBULA 2 VIEWS Reagan Riggs MD [address] [place] [address] [place] [address] Referral ID Status Reason Start Date Expiration Date V isits Requested Visits Authorized [id number] Closed Auto-Generate d Referral 11/10/2022 12/10/2023 1 1 [facility] for referral (narrative)* Diagnostic Procedure Only (Routine) - Closed Specialty Diagnoses / Procedures Referred By Contac t Referred To Contact BR IMAGING Diagnoses Screening breast examination Procedures MARYLU SCREENING SCREENING MAMMOGRAPHY BI 2-VIEW BREAST INC CAD Ignacio Cheatham MD [address] [place] [address] [facility] [address] [place] [address] Referral ID Status Reason Start Date Expiration Date V isits Requested Visits Authorized [id number] Closed Auto-Generate d Referral 06/26/2021 07/26/2022 1 1 [facility] for referral (narrative)* Diagnostic Procedure Only (Routine) - Closed Specialty Diagnoses / Procedures Referred By Allison t Referred To Contact XR IMAGING Diagnoses CKD (chronic kidney disease) stage 5, GFR less than 15 ml/min (HCC) Procedures XR CHEST 1V FRONTAL RADIOLOGIC EXAM CHEST SINGLE VIEW Goldy Hunter DO [address] [place] [id number] X[facility] [place] [address] Referral ID Status Reason Start Date Expiration Date V isits Requested Visits Authorized [id number] Closed Auto-Generate d Referral 08/05/2022 09/04/2023 1 1 [facility] for referral (narrative)* Outpatient Procedure (Routine) - Pending Review Specialty Diagnoses / Procedures Referred By Contac t Referred To Contact [facility] [place] Diagnoses Neuropathy Type 2 diabetes, controlled, with neuropathy (HCC) Open wound of toe of right foot Diminished pulses in lower extremity Hammertoe, bilateral Procedures PVR ANK PRESS [facility] NON-INVAS PHYSIOLOGIC STD EXTREMITY ART [address] [place] [place] [address] [facility] [place] [address] [place] [address] Referral ID Status Reason Start Date Expiration Date Visits Requested Visits Authorized [id number] Pending Review Auto-Generat ed Referral 05/15/2023 05/14/2024 1 1 * Diagnostic Procedure Only (Routine) - Pending Review Specialty Diagnoses / Procedures Referred By Contac t Referred To Contact XR IMAGING Diagnoses Neuropathy Type 2 diabetes, controlled, with neuropathy (HCC) Open wound of toe of right foot Diminished pulses in lower extremity [place]ertoe, bilateral Procedures XR FOOT GENERAL 3V AP/LAT/OBL BILATERAL RADEX FOOT COMPLETE MINIMUM 3 VIEWS [address] [place] [place] [address] [place] [address] Referral ID Status Reason Start Date Expiration Date Visits Requested Visits Authorized [id number] Pending Review Auto-Generat ed Referral 05/15/2023 06/13/2024 1 1 T [facility] for referral (narrative)* Diagnostic Procedure Only (Routine) - Pending Review Specialty Diagnoses / Procedures Referred By Contac t Referred To Contact BR IMAGING Diagnoses Encounter for screening mammogram for breast cancer Procedures MARYLU SCREENING SCREENING MAMMOGRAPHY BI 2-VIEW BREAST INC CAD Ignacio Cheatham MD [address] [place] [address] [facility] [address] [facility] [place] [address] Referral ID Status Reason Start Date Expiration Date Visits Requested Visits Authorized [id number] Pending Review Auto-Generat ed Referral 05/13/2023 06/11/2024 1 1 T [facility] for referral (narrative)* Diagnostic Procedure Only (Routine) - Pending Review Specialty Diagnoses / Procedures Referred By Contac t Referred To Contact XR IMAGING Diagnoses 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 Procedures XR KNEE LIMITED 2V AP/LAT RIGHT RADIOLOGIC EXAMINATION KNEE 1/2 VIEWS Dorene Murillo MD [address] [place] [address] [place] [address] [place] [address] Referral ID Status Reason Start Date Expiration Date Visits Requested Visits Authorized [id number] Pending Review Auto-Generat ed Referral 07/05/2023 08/03/2024 1 1 T [facility] for referral (narrative)* Diagnostic Procedure Only (Routine) - New Request Specialty Diagnoses / Procedures Referred By Contac t Referred To Contact XR IMAGING Diagnoses 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 Procedures XR KNEE LIMITED 2V AP/LAT RIGHT RADIOLOGIC EXAMINATION KNEE 1/2 VIEWS Dorene Murillo MD [address] [place] [address] [place] [address] Referral ID Status Reason Start Date Expiration Date Visits Requested Visits Authorized [id number] New Request Auto-Generat ed Referral 09/14/2023 10/13/2024 1 1 [facility] for referral (narrative)* Diagnostic Procedure Only (Urgent) - Closed Specialty Diagnoses / Procedures Referred By Contac t Referred To Contact XR IMAGING Diagnoses Acute right ankle pain Procedures XR ANKLE GENERAL 3V AP/LAT/OBL RIGHT RADEX ANKLE COMPLETE MINIMUM 3 VIEWS Sha Ray APRN.SALOONKEEPER [address] [place] [address] [place] [address] Referral ID Status Reason Start Date Expiration Date V isits Requested Visits Authorized [id number] Closed Auto-Generate d Referral 03/17/2023 04/15/2024 1 1 * Diagnostic Procedure Only (Urgent) - Closed Specialty Diagnoses / Procedures Referred By Contac t Referred To Contact XR IMAGING Diagnoses Foot pain, right Procedures XR FOOT GENERAL 3V AP/LAT/OBL RIGHT RADEX FOOT COMPLETE MINIMUM 3 VIEWS Sha Ray APRN.SALOONKEEPER [address] [place] [address] [place] [address] Referral ID Status Reason Start Date Expiration Date V isits Requested Visits Authorized [id number] Closed Auto-Generate d Referral 03/17/2023 04/15/2024 1 1 [facility] for referral (narrative)* Diagnostic Procedure Only (Routine) - Closed Specialty Diagnoses / Procedures Referred By Contac t Referred To Contact XR IMAGING Diagnoses Rib pain on right side Procedures XR RIBS/CHEST 3V AP RIB/OBLS/CXR RT X-RAY RIBS, CHEST 3+ VW Ignacio Cheatham MD [address] [place] [address] [place] [address] Referral ID Status Reason Start Date Expiration Date V isits Requested Visits Authorized [id number] Closed Auto-Generate d Referral 10/31/2020 11/30/2021 1 1 * Diagnostic Procedure Only (Routine) - Closed Specialty Diagnoses / Procedures Referred By Contac t Referred To Contact XR IMAGING Diagnoses Neck pain Procedures XR CERV OTHER 4V AP/LAT/OBL X-RAY NECK MINIMUM 4 VIEWS Ignacio Cheatham MD [address] [place] [address] [place] [address] Referral ID Status Reason Start Date Expiration Date V isits Requested Visits Authorized [id number] Closed Auto-Generate d Referral 10/31/2020 11/30/2021 1 1 [facility] for referral (narrative)* Diagnostic Procedure Only (Routine) - Authorized Specialty Diagnoses / Procedures Referred By Contac t Referred To Contact [facility] Diagnoses CASSIE (obstructive sleep apnea) Procedures HOME SLEEP APNEA TEST (HSAT) SLEEP STD AIRFLOW HRT RATE&O2 SAT EFFORT UNATT Ignacio Cheatham MD [address] [place] [address] [facility] [address] [place] [id number] Referral ID Status Reason Start Date Expiration Date Visits Requested Visits Authorized [id number] Authorized Auto-Generat ed Referral 4 03/01/2024 1 1 * Consult, Test, Treat (Routine) - Authorized Specialty Diagnoses / Procedures Referred By Contac t Referred To Contact Endocrinology Diagnoses Type 2 diabetes, controlled, with neuropathy (HCC) Procedures CONSULT TO ENDOCRINOLOGY OFFICE/OUTPATIENT [facility] 60 MINUTES Ignacio Cheatham MD [address] [place] [address] Referral ID Status Reason Start Date Expiration Date Visits Requested Visits Authorized [id number] Authorized PCP Requested Referral 4 12/24/2024 1 1 [facility] for referral (narrative)* Diagnostic Procedure Only (Routine) - New Request Specialty Diagnoses / Procedures Referred By Allison t Referred To Contact XR IMAGING Diagnoses 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 Procedures XR KNEE LIMITED 2V AP/LAT RIGHT RADIOLOGIC EXAMINATION KNEE 1/2 VIEWS Dorene Murillo MD [address] [address] [place] [address] Referral ID Status Reason Start Date Expiration Date Visits Requested Visits Authorized [id number] New Request Auto-Generat ed Referral 4 01/18/2025 1 1 [facility] for referral (narrative)* Outpatient Procedure (Routine) - New Request Specialty Diagnoses / Procedures Referred By Allison t Referred To Contact [facility] Diagnoses Stenosis of arteriovenous graft, 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HCC) Procedures US A/V FISTULA GRAFT UNL VAS LAB DUPLEX SCAN HEMODIALYSIS ACCESS Saira Jackson DO [address] [place] [address] [facility] [address] [place] [address] Referral ID Status Reason Start Date Expiration Date Visits Requested Visits Authorized [id number] New Request Auto-Generate d Referral Financial Clearance Required - Self Pay 4 02/08/2025 1 1 [facility] for referral (narrative)No reason for referral information [facility] Work Phone: Reason for visit Narrative* Diagnostic Procedure Only (Routine) - Closed Specialty Diagnoses / Procedures Referred By Contac t Referred To Contact XR IMAGING Diagnoses Right elbow pain Procedures XR ELBOW GENERAL 2V AP/LAT RIGHT RADEX ELBOW 2 VIEWS Ignacio Cheatham MD [address] [place] [address] [place] [address] Referral ID Status Reason Start Date Expiration Date V isits Requested Visits Authorized [id number] Closed Auto-Generate d Referral 08/11/2022 09/10/2023 1 1 [facility] for visit Narrative* Diagnostic Procedure Only (Routine) - Closed Specialty Diagnoses / Procedures Referred By Contac t Referred To Contact XR IMAGING Diagnoses Stress fracture of right tibia, initial encounter Procedures XR TIBIA FIBULA 2V AP/LAT RIGHT RADIOLOGIC EXAMINATION TIBIA & FIBULA 2 VIEWS Reagan Riggs MD [address] [place] [address] [place] [address] Referral ID Status Reason Start Date Expiration Date V isits Requested Visits Authorized [id number] Closed Auto-Generate d Referral 12/10/2022 01/09/2024 1 1 [facility] for visit Narrative* Diagnostic Procedure Only (Routine) - Closed Specialty Diagnoses / Procedures Referred By Contac t Referred To Contact XR IMAGING Diagnoses Chronic pain of left knee Procedures XR KNEE GENERAL 4V AP BOTH/PA BOTH/LAT/MERC LEFT RADIOLOGIC EXAM KNEE COMPLETE 4/MORE VIEWS Ignacio Cheatham MD [address] [place] [address] [place] [address] Referral ID Status Reason Start Date Expiration Date V isits Requested Visits Authorized [id number] Closed Auto-Generate d Referral 03/21/2022 04/20/2023 1 1 [facility] for visit Narrative* Diagnostic Procedure Only (Routine) - Closed Specialty Diagnoses / Procedures Referred By Contac t Referred To Contact XR IMAGING Diagnoses Pain of right lower extremity Stress fracture of right tibia, initial encounter Procedures XR TIBIA FIBULA 2V AP/LAT RIGHT RADIOLOGIC EXAMINATION TIBIA & FIBULA 2 VIEWS Reagan Riggs MD [address] [place] [address] [place] [address] Referral ID Status Reason Start Date Expiration Date V isits Requested Visits Authorized [id number] Closed Auto-Generate d Referral 11/10/2022 12/10/2023 1 1 [facility] for visit Narrative* Diagnostic Procedure Only (Routine) - Closed Specialty Diagnoses / Procedures Referred By Contac t Referred To Contact BR IMAGING Diagnoses Screening breast examination Procedures MARYLU SCREENING SCREENING MAMMOGRAPHY BI 2-VIEW BREAST INC CAD Ignacio Cheatham MD [address] [place] [address] Br Imaging [address] [place] [address] Referral ID Status Reason Start Date Expiration Date V isits Requested Visits Authorized [id number] Closed Auto-Generate d Referral 06/26/2021 07/26/2022 1 1 [facility] for visit Narrative* Diagnostic Procedure Only (Routine) - Closed Specialty Diagnoses / Procedures Referred By Contac t Referred To Contact XR IMAGING Diagnoses CKD (chronic kidney disease) stage 5, GFR less than 15 ml/min (HCC) Procedures XR CHEST 1V FRONTAL RADIOLOGIC EXAM CHEST SINGLE VIEW Goldy Hunter DO [address] [place] [address] [place] [address] Referral ID Status Reason Start Date Expiration Date V isits Requested Visits Authorized [id number] Closed Auto-Generate d Referral 08/05/2022 09/04/2023 1 1 [facility] for visit Narrative* Diagnostic Procedure Only (Urgent) - Closed Specialty Diagnoses / Procedures Referred By Contac t Referred To Contact XR IMAGING Diagnoses Foot pain, right Procedures XR FOOT GENERAL 3V AP/LAT/OBL RIGHT RADEX FOOT COMPLETE MINIMUM 3 VIEWS Sha Ray, PLISSE MACHINE OPERATOR HELPER.SALOONKEEPER [address] [place] [address] [place] [address] Referral ID Status Reason Start Date Expiration Date V isits Requested Visits Authorized [id number] Closed Auto-Generate d Referral 03/17/2023 04/15/2024 1 1 [facility] for visit Narrative* Diagnostic Procedure Only (Urgent) - Closed Specialty Diagnoses / Procedures Referred By Contac t Referred To Contact XR IMAGING Diagnoses Foot pain, left Procedures XR FOOT GENERAL 3V AP/LAT/OBL LEFT RADEX FOOT COMPLETE MINIMUM 3 VIEWS Jimmy Rabago, PLISSE MACHINE OPERATOR HELPER.SALOONKEEPER [address] [place] [address] [place] [address] Referral ID Status Reason Start Date Expiration Date V isits Requested Visits Authorized [id number] Closed Auto-Generate d Referral 02/18/2022 03/20/2023 1 [facility] Diagnostic Procedure Only (Routine) - Closed Specialty Diagnoses / Procedures Referred By Contac t Referred To Contact XR IMAGING Diagnoses Rib pain on right side Procedures XR RIBS/CHEST 3V AP RIB/OBLS/CXR RT X-RAY RIBS, CHEST 3+ VW Ignacio Cheatham MD [address] [facility] [place] [address] [place] [address] Referral ID Status Reason Start Date Expiration Date V isits Requested Visits Authorized [id number] Closed Auto-Generate d Referral 10/31/2020 11/30/2021 1 1 [facility] Summary Purpose Family History Relationship Condition Age at Onset Recorded Date/T nora mother Cardiac disease Unknown Hypertension Unknown Diabetes mellitus Unknown Kidney disorder Unknown father Diabetes mellitus Unknown Advance Directives Date Activated Date Inactivated Comments 07/29/2023 4:39 [...] Documents on File Type Date Recorded Patient Rn Mds Coordinator Expl anation Advance Directive(s) Advance Directive(s) 05/03/2018 10:46 PM Advance Directive(s) 07/02/2015 7:09 AM Documents on File Type Date Recorded Patient Rn Mds Coordinator Expl anation Advance Directive(s) Advance Directive(s) 05/03/2018 10:46 PM Advance Directive(s) 07/02/2015 7:09 AM Advance Directive Response Recorded Date/ Time Living Will No July 29, 2021 9 :12pm Power of Tea Bag Machine Tender No July 29, 2021 9:12pm Latest Code [...] September 07, 2022 1 :49pm Power of Tea Bag Machine Tender No September 07, 2022 1:49pm Latest Code Status on File Code Status Date Activated Date Inactivated Comments Full Code 07/31/2022 9:45 PM 08/04/2022 8:52 PM Question Answer Comments Full Code Order Discussed With: Patient Advance Directive Response Recorded Date/ Time Living Will No September 10, 2022 4:13am Power of Tea Bag Machine Tender No September 10 4:13am Advance Directive Response Recorded Date/ Time Name of Medical Power of Tea Bag Machine Tender HALLE BOSS October 15, 2022 5:33pm Living Will No October 15 5:33pm Power of Tea Bag Machine Tender Yes October 15, 023 5:33pm Latest Code Status on File Code Status Date Activated Date Inactivated Comments Full Code 07/31/2022 9:45 PM 08/04/2022 8:52 PM Question Answer Comments Full Code Order Discussed With: Patient Advance Directive Response Recorded Date/ Time Name of Medical Power of Tea Bag Machine Tender halle barragan, mell sanchez October 30, 2022 7:22am Living Will Yes October 30 7:22am Power of Tea Bag Machine Tender Yes October 30, 023 7:22am Name of Medical Power of Tea Bag Machine Tender HALLE BOSS October 15, 2022 5:33pm Latest Code Status on File Code Status Date Activated Date Inactivated Comments Full Code 07/31/2022 9:45 PM 08/04/2022 8:52 PM Question Answer Comments Full Code Order Discussed With: Patient Advance Directive Response Recorded Date/ Time Name of Medical Power of Tea Bag Machine Tender halle barragan be leesa sanchez October 30, 2022 6:22am Name of Medical Power of Tea Bag Machine Tender ALONDRA DORI- SISTER November 14th, 2023 12:35pm Living Will Yes January 13, 2 023 12:35pm Power of Tea Bag Machine Tender Yes January 13, 2023 12:35pm Name of Medical Power of Tea Bag Machine Tender HALLE BOSS October 15, 2022 4:33pm Advance Directive Response Recorded Date/ Time Name of Medical Power of Tea Bag Machine Tender halleyoanna barragan, mell rta sanchez October 30, 2022 6:22am Name of Medical Power of Tea Bag Machine Tender ALONDRA HERNANDEZS- SISTER January 13, 2023 12:35pm Name of Medical Power of Tea Bag Machine Tender Halle Boss January 15, 2023 1:53pm Living Will Yes January 15, 023 1:53pm Power of Tea Bag Machine Tender Yes January 15, 2023 1:53pm Name of Medical Power of Tea Bag Machine Tender HALLE BOSS October 15, 2022 4:33pm Advance Directive Response Recorded Date/ Time Name of Medical Power of Tea Bag Machine Tender halleyoanna barragan, be rta sanchez October 30, 2022 6:22am Name of Medical Power of Tea Bag Machine Tender ALONDRA HERNANDEZS- SISTER January 13, 2023 12:35pm Name of Medical Power of Tea Bag Machine Tender Halle Boss January 15, 2023 1:53pm Living Will No January 19 023 7:16am Power of Tea Bag Machine Tender No January 19, 2023 7:16am Name of Medical Power of Tea Bag Machine Tender HALLE BOSS October 15, 2022 4:33pm Advance Directive Response Recorded Date/ Time Name of Medical Power of Tea Bag Machine Tender halle barragan, be rta sanchez October 30, 2022 6:22am Name of Medical Power of Tea Bag Machine Tender ALONDRA HERNANDEZS- SISTER January 13, 2023 12:35pm Name of Medical Power of Tea Bag Machine Tender Halle Boss January 15, 2023 1:53pm Living Will No January 19 023 4:31pm Power of Tea Bag Machine Tender No January 19, 2023 4:31pm Name of Medical Power of Tea Bag Machine Tender HALLE BOSS October 15, 2022 4:33pm Advance Directive Response Recorded Date/ Time Name of Medical Power of Tea Bag Machine Tender halle barragan, be rta sanchez October 30, 2022 6:22am Name of Medical Power of Tea Bag Machine Tender ALONDRA HERNANDEZS- SISTER January 13, 2023 12:35pm Name of Medical Power of Tea Bag Machine Tender Halle Barragan January 15, 2023 1:53pm Living Will No February 04 10:52am Power of Tea Bag Machine Tender No February 04, 2023 10:52am Name of Medical Power of Tea Bag Machine Tender HALLE BARRAGAN October 15, 2022 4:33pm Advance Directive Response Recorded Date/ Time Name of Medical Power of Tea Bag Machine Tender ALONDRA BARRAGAN- January 13, 2023 12:35pm Name of Medical Power of Tea Bag Machine Tender Halle Barragan January 15, 2023 1:53pm Name of Medical Power of Tea Bag Machine Tender SISTER HALLE March 09, 2023 9:37am Living Will Yes March 09 9:37am Power of Tea Bag Machine Tender Yes March 09 9:37am Latest Code Status [...] Date/ Time Name of Medical Power of Tea Bag Machine Tender SISTER HALLE March 09, 2023 10:37am Living Will No June 04, 2023 10:31am Power of Tea Bag Machine Tender No June 03 10:31am Advance Directive Response Recorded Date/ Time Name of Medical Power of Tea Bag Machine Tender SISTER HALLE March 09, 2023 10:37am Name of Medical Power of Tea Bag Machine Tender Halle Barragan June 29, 2023 7:45pm Living Will Yes June 29, 2023 7:45pm Power of Tea Bag Machine Tender Yes June 28 7:45pm Date Activated Date [...] Do you have a Healthcare Power of Tea Bag Machine Tender? Yes September 06, 2024 6:43pm Advance Directive Response Recorded Date/ Time Do you have a Healthcare Power of Tea Bag Machine Tender? Yes September 06, 2024 6:43pm Do you have a Healthcare Power of Tea Bag Machine Tender? No October 10, 2024 4:06pm Advance Directive Response Recorded Date/ Time Do you have a Healthcare Power of Tea Bag Machine Tender? Yes September 06, 2024 6:43pm Do you have a Healthcare Power of Tea Bag Machine Tender? Yes October 10, 2024 9:50pm Name of Medical Power of Tea Bag Machine Tender Halle Barragan October 10, 2024 9:50pm Advance Directive Response Recorded Date/ Time Do you have a Healthcare Power of Tea Bag Machine Tender? Yes September 06, 2024 6:43pm Do you have a Healthcare Power of Tea Bag Machine Tender? Yes October 10, 2024 9:50pm Name of Medical Power of Tea Bag Machine Tender Halle Hernandezs October 10, 2024 9:50pm Do you have a Healthcare Power of Tea Bag Machine Tender? Yes October 24, 2024 1:48pm Advance Directive Response Recorded Date/ Time Do you have a Healthcare Power of Tea Bag Machine Tender? Yes September 06, 2024 6:43pm Do you have a Healthcare Power of Tea Bag Machine Tender? Yes October 10, 2024 9:50pm Name of Medical Power of Tea Bag Machine Tender Halle Hernandezs October 10, 2024 9:50pm Do you have a Healthcare Power of Tea Bag Machine Tender? Yes October 24, 2024 7:39pm Date Activated Date Inactivated Comments 10/28/2024 12:50 PM Date Activated Date Inactivated Comments 07/29/2023 4:39 PM 08/07/2023 4:53 PM Date Activated Date Inactivated Comments 06/11/2023 9:39 AM 06/17/2023 10:23 PM Date Activated Date Inactivated Comments 07/31/2022 9:45 PM 08/04/2022 8:52 PM Question Answer Comments Full Code Order Discussed With: Patient Reason for Referral Specialty Diagnoses / Procedures Referred By Contac t Referred To Contact CT IMAGING Diagnoses Pre-transplant evaluation for kidney transplant Procedures CT ABD/PEL WO IVCON CT ABD & PELVIS W/O CONTRAST Linda Livingston MD [address] [place] [address] Ct Imaging Referral ID Status Reason Start Date Expiration Date V isits Requested Visits Authorized [id number] Closed Auto-Generated Referral Patient Cleared - INN Insurance Found 06/20/2021 07/19/2021 1 1 Specialty Diagnoses / Procedures Referred By Contac t Referred To Contact Vascular Surgery Diagnoses Stage 5 chronic kidney disease not on chronic dialysis (HCC) Procedures CONSULT TO VASCULAR SURGERY OFFICE/OUTPATIENT [facility] 60-74 MINUTES Fab Cochran, PLISSE MACHINE OPERATOR HELPER.[facility] [address] [place] [address] Referral ID Status Reason Start Date Expiration Date Visits Requested Visits Authorized [id number] Authorized PCP Requested Referral 08/01/2021 07/30/2022 1 1 Specialty Diagnoses / Procedures Referred By Contac t Referred To Contact CT IMAGING Diagnoses Pre-transplant evaluation for chronic kidney disease Lung nodules Procedures CT CHEST WO IVCON DIAGNOSTIC COMPUTED TOMOGRAPHY THORAX W/O CNTRST Luis Mejia MD [address] [place] [address] Ct Imaging Referral ID Status Reason Start Date Expiration Date V isits Requested Visits Authorized [id number] Closed Auto-Generated Referral Patient Cleared - INN Insurance Found 07/19/2021 08/17/2021 1 1 Specialty Diagnoses / Procedures Referred By Contac t Referred To Contact Diagnoses Poorly controlled type 2 diabetes mellitus (HCC) Procedures CONSULT TO DIABETES EDUCATION OFFICE/OUTPATIENT [facility] MDM 60-74 MINUTES Rojelio Clark MD [facility] [place] [address] Referral ID Status Reason Start Date Expiration Date Visits Requested Visits Authorized [id number] Authorized PCP Requested Referral 10/02/2021 10/02/2022 1 1 Specialty Diagnoses / Procedures Referred By Contac t Referred To Contact Nutrition Diagnoses Poorly controlled type 2 diabetes mellitus (HCC) Procedures CONSULT TO NUTRITION THERAPY OFFICE/OUTPATIENT [facility] 60-74 MINUTES Rojelio Clark MD [address] [place] [address] Referral ID Status Reason Start Date Expiration Date Visits Requested Visits Authorized [id number] Authorized PCP Requested Referral 10/28/2021 10/28/2022 1 1 Specialty Diagnoses / Procedures Referred By Contac t Referred To Contact Nutrition Diagnoses CKD (chronic kidney disease) stage 5, GFR less than 15 ml/min (HCC) Procedures CONSULT TO NUTRITION THERAPY OFFICE/OUTPATIENT [facility] 60-74 MINUTES Fab Cochran, PLISSE MACHINE OPERATOR HELPER.[employer]OONKEEPER [address] [place] [address] Referral ID Status Reason Start Date Expiration Date Visits Requested Visits Authorized [id number] Authorized PCP Requested Referral 11/27/2021 11/27/2022 1 1 Specialty Diagnoses / Procedures Referred By Contac t Referred To Contact Diagnoses Anemia of renal disease Procedures CONSULT TO HEMATOLOGY/ONCOLOGY OFFICE/OUTPATIENT [facility] 60-74 MINUTES Fab Cochran, PLISSE MACHINE OPERATOR HELPER.SALOONKEEPER [id number] Referral ID Status Reason Start Date Expiration Date Visits Requested Visits Authorized [id number] Authorized PCP Requested Referral 12/05/2021 12/04/2022 1 1 Specialty Diagnoses / Procedures Referred By Contac t Referred To Contact Podiatry Diagnoses Foot pain, left Procedures CONSULT TO PODIATRY OFFICE/OUTPATIENT [facility] 60-74 MINUTES Jimmy Rabago APRN.SALOONKEEPER [address] [place] [address] Referral ID Status Reason Start Date Expiration Date Visits Requested Visits Authorized [id number] Authorized PCP Requested Referral 2 02/18/2023 1 1 Specialty Diagnoses / Procedures Referred By Contac t Referred To Contact XR IMAGING Diagnoses Foot pain, left Procedures XR FOOT GENERAL 3V AP/LAT/OBL LEFT RADEX FOOT COMPLETE MINIMUM 3 VIEWS Jimmy Rabago PLISSE MACHINE OPERATOR HELPER.SALOONKEEPER [address] [place] [address] Xr Imaging Referral ID Status Reason Start Date Expiration Date V isits Requested Visits Authorized [id number] Closed Auto-Generate d Referral 02/18/2022 03/20/2023 1 1 Specialty Diagnoses / Procedures Referred By Contac t Referred To Contact CT IMAGING Diagnoses Chronic pain of left knee Procedures CT KNEE WO IVCON LEFT CT LOWER EXTREMITY W/O CONTRAST MATERIAL Dakota Rajput MD [address] [address] [address] Imaging Referral ID Status Reason Start Date Expiration Date Visits Requested Visits Authorized [id number] Pending Review Auto-Generat ed Referral 06/12/2022 07/12/2023 1 1 Specialty Diagnoses / Procedures Referred By Contac t Referred To Contact Orthopedics Diagnoses Pain of right lower extremity Procedures CONSULT TO ORTHOPAEDICS OFFICE/OUTPATIENT [facility] 60-74 MINUTES Ignacio Cheatham MD [address] [place] [address] Referral ID Status Reason Start Date Expiration Date Visits Requested Visits Authorized [id number] Authorized PCP Requested Referral 10/20/2022 10/20/2023 1 1 Specialty Diagnoses / Procedures Referred By Contac t Referred To Contact Pain Management Diagnoses Intervertebral disc stenosis of neural canal of lumbar region Procedures CONSULT TO PAIN MGT OFFICE/OUTPATIENT [facility] 60-74 MINUTES Reagan Riggs MD [address] [place] [address] Referral ID Status Reason Start Date Expiration Date Visits Requested Visits Authorized [id number] Authorized PCP Requested Referral 3 12/15/2023 1 1 Specialty Diagnoses / Procedures Referred By Contac t Referred To Contact CT IMAGING Diagnoses Lung nodules Procedures CT CHEST WO IVCON DIAGNOSTIC COMPUTED TOMOGRAPHY THORAX W/O CNTRST Ignacio Cheatham MD [address] [place] [address] [place] [address] Referral ID Status Reason Start Date Expiration Date Visits Requested Visits Authorized [id number] Pending Review Auto-Generat ed Referral 10/05/2023 05/05/2024 1 1 Specialty Diagnoses / Procedures Referred By Contac t Referred To Contact Vascular Surgery Diagnoses ESRD (end stage renal disease) (HCC) Procedures CONSULT TO VASCULAR SURGERY OFFICE/OUTPATIENT [facility] 60 MINUTES Tresa Marcum APRN.CNP [address] [place] [address] Referral ID Status Reason Start Date Expiration Date Visits Requested Visits Authorized [id number] Authorized PCP Requested Referral 4 12/10/2024 1 1 Specialty Diagnoses / Procedures Referred By Contac t Referred To Contact Diagnoses CASSIE (obstructive sleep apnea) Procedures CONSULT TO SLEEP MEDICINE - ADULT OFFICE/OUTPATIENT [facility] 60 MINUTES Sha Myrick MD [address] [place] [address] Referral ID Status Reason Start Date Expiration Date Visits Requested Visits Authorized [id number] Authorized PCP Requested Referral 4 01/11/2025 1 1 Specialty Diagnoses / Procedures Referred By Contac t Referred To Contact Pain Management Diagnoses Spinal stenosis of lumbar region, unspecified whether neurogenic claudication present Procedures CONSULT TO PAIN MGT OFFICE/OUTPATIENT [facility] 60 MINUTES Ignacio Cheatham MD [address] [place] [address] Referral ID Status Reason Start Date Expiration Date Visits Requested Visits Authorized [id number] Authorized PCP Requested Referral 03/25/2024 03/25/2025 1 1 Specialty Diagnoses / Procedures Referred By Contac t Referred To Contact Neurology Diagnoses TIA (transient ischemic attack) Procedures CONSULT TO NEUROLOGY OFFICE/OUTPATIENT [facility] 60 MINUTES Ignacio Cheatham MD [address] [place] [address] Referral ID Status Reason Start Date Expiration Date Visits Requested Visits Authorized [id number] Authorized PCP Requested Referral 03/25/2024 03/25/2025 1 [...] PAIN RLE INTRACTABLE PAIN RLE INTRACTABLE PAIN SKILLED NURSING LAB WORK LABWORK LABWORK LABWORK Foot pain/swelling/ecchymosis Reason for Visit Inability to walk Right leg pain Chief Complaint leg pain R LEG PAIN RLE INTRACTABLE PAIN RLE INTRACTABLE PAIN RLE INTRACTABLE PAIN SKILLED NURSING LAB WORK LABWORK LABWORK LABWORK Foot pain/swelling/ecchymosis chest pain Reason for Visit Inability to walk Right leg pain Chief Complaint SKILLED NURSING LAB WOR K LABWORK LABWORK LABWORK Foot [...] TO AMBULATE TIB/FIB FRACTURE INABILITY TO AMBULATE SKILLED NURSING LABWORK abn lab SKILLED NURSING LABWORK LAB WORK LAB WORK LAB WORK fall Reason for Visit Secondary hyperparat hyroidism Chief Complaint SKILLED NURSING LABWORK abn lab SKILLED NURSING LABWORK LAB WORK LAB WORK LAB WORK LABWORK fall LEG Chief Complaint LABWORK fall LEG lower ext ABNORMAL LABS Chief Complaint fall LEG lower ext ABNORMAL LABS 1 UNIT PRBC Chief Complaint Admit Date FIBROMYALGIA, AQUA THERAPY. RX HERE August 24, 2024 3:30pm cp September 06, 2024 6:38p m Chief Complaint Admit Date FIBROMYALGIA, AQUA THERAPY. RX HERE August 24, 2024 3:30pm cp September 06, 2024 6:38p m AE COPD, PNA, VOLUME OVERLOAD AFTER [facility] HD WITH October 10, 2024 8:31pm Chief Complaint Admit Date FIBROMYALGIA, AQUA THERAPY. RX HERE August 22, 2024 2:30pm cp September 06, 2024 6:38p m AE COPD, PNA, VOLUME OVERLOAD AFTER [facility] HD WITH October 10, 2024 8:31pm Reason for Visit Admit Date Abdominal pain October 10, 2024 8: 31pm Acute cystitis with hematuria September 8:31pm Acute respiratory insufficiency September 302024 8:31pm Diarrhea October 10, 2024 8: 31pm Elevated d-dimer October 10, 2024 8: 31pm ESRD (end stage renal disease) on dialys is October 10, 2024 8:31pm History of DVT (deep vein thrombosis) Au 2024 8:31pm Hyperkalemia October 10, 2024 8: 31pm Overweight (BMI 25.0-29.9) October 10, 2024 8:31pm Uncontrolled hypertension October 10, 2 025 8:31pm COPD exacerbation October 10, 2024 8: 31pm Chief Complaint Admit Date FIBROMYALGIA, AQUA THERAPY. RX HERE August 22, 2024 2:30pm cp September 06, 2024 6:38p m AE COPD, PNA, VOLUME OVERLOAD AFTER [facility] ED HD WITH October 10, 2024 8:31pm AE COPD, PNA, VOLUME OVERLOAD AFTER [facility] ED HD WITH October 11, 2024 3:22pm AE COPD, PNA, VOLUME OVERLOAD AFTER [facility] ED HD WITH October 12, 2024 3:22pm Chief Complaint Admit Date FIBROMYALGIA, AQUA THERAPY. RX HERE August 22, 2024 2:30pm cp September 06, 2024 6:38p m AE COPD, PNA, VOLUME OVERLOAD AFTER [facility] WITH October 10, 2024 8:31pm AE COPD, PNA, VOLUME OVERLOAD AFTER [facility] WITH October 11, 2024 3:22pm AE COPD, PNA, VOLUME OVERLOAD AFTER [facility] WITH October 12, 2024 3:22pm AE COPD, PNA, VOLUME OVERLOAD AFTER [facility] WITH October 13, 2024 4:35pm hypoxia and fluid overload October 24, 2024 6:54pm Reason for Visit Admit Date Abdominal pain October 10, 2024 8: 31pm Acute cystitis with hematuria September 8:31pm Acute respiratory insufficiency September [id number] 8:31pm Diarrhea October 10, 2024 8: 31pm Elevated d-dimer October 10, 2024 8: 31pm ESRD (end stage renal disease) on dialys is October 10, 2024 8:31pm History of DVT (deep vein thrombosis) Au 2024 8:31pm Hyperkalemia October 10, 2024 8: 31pm Overweight (BMI 25.0-29.9) October 10, 2024 8:31pm Uncontrolled hypertension October 10, 2 025 8:31pm COPD exacerbation October 10, 2024 8: 31pm ESRD (end stage renal disease) on dialys is October 24, 2024 6:54pm Pulmonary edema October 24, 2024 6: 54pm Hypertension October 24, 2024 6: 54pm Chief Complaint Admit Date FIBROMYALGIA, AQUA THERAPY. RX HERE August 22, 2024 2:30pm cp September 06, 2024 6:38p m AE COPD, PNA, VOLUME OVERLOAD AFTER [facility] WITH October 10, 2024 8:31pm AE COPD, PNA, VOLUME OVERLOAD AFTER [facility] WITH October 11, 2024 3:22pm AE COPD, PNA, VOLUME OVERLOAD AFTER [facility] WITH October 12, 2024 3:22pm AE COPD, PNA, VOLUME OVERLOAD AFTER [facility] WITH October 13, 2024 4:35pm hypoxia and fluid overload October 24, 2024 6:54pm hypoxia and fluid overload October 25, 2024 9:02am hypoxia and fluid overload October 26, 2024 8:32am Reason for Visit Admit Date Abdominal pain October 10, 2024 8: 31pm Acute cystitis with hematuria September 8:31pm Acute respiratory insufficiency September [id number] 8:31pm Diarrhea October 10, 2024 8: 31pm Elevated d-dimer October 10, 2024 8: 31pm ESRD (end stage renal disease) on dialys is October 10, 2024 8:31pm History of DVT (deep vein thrombosis) Au 2024 8:31pm Hyperkalemia October 10, 2024 8: 31pm Overweight (BMI 25.0-29.9) October 10, 2024 8:31pm Uncontrolled hypertension October 10, 2 025 8:31pm COPD exacerbation October 10, 2024 8: 31pm (HFpEF) heart failure with preserved eje ction fraction October 24, 2024 6:54pm ESRD (end stage renal disease) on dialys is October 24, 2024 6:54pm Hypoxia October 24, 2024 6: 54pm Pulmonary edema October 24, 2024 6: 54pm Hypertension October 24, 2024 6: 54pm Health Concerns Infection Onset Date Last Indicated [...] over 15 Minutes, ONCE, 1 dose, On Thu01/08/22 at 1400, Please conduct a 30 minute [...] section and content) DATE CREATED AUTHOR 08/19/2017 [facility] ([place]) DATE CREATED AUTHOR AUTHOR'S ORGANIZ ATION 08/21/2017 [facility] DATE CREATED AUTHOR AUTHOR'S ORGANIZ ATION 01/24/2020 [facility] DATE CREATED AUTHOR AUTHOR'S ORGANIZ ATION 08/10/2022 [facility] DATE CREATED AUTHOR AUTHOR'S ORGANIZ ATION 06/17/2023 [facility] DATE CREATED AUTHOR AUTHOR'S ORGANIZ ATION 08/05/2024 [facility] DATE CREATED AUTHOR AUTHOR'S ORGANIZ ATION 08/28/2024 [facility] DATE CREATED AUTHOR AUTHOR'S ORGANIZ ATION 10/26/2024 [facility] DATE CREATED AUTHOR AUTHOR'S ORGANIZ ATION 10/27/2024 [facility] Comments (unrecognize d section and content) In the event this informatio n is protected by the Federal Confidentiality of Alcohol and Drug Abuse Patient Records regulations: The Federal rules restrict any use of the information to criminally investigate or prosecute any alcohol or drug abuse patient.[facility] CenterIn the event this information is protected by the Federal Confidentiality of Alcohol and Drug Abuse Patient Records regulations: The Federal rules restrict any use of the information to criminally investigate or prosecute any alcohol or drug abuse patient.[facility] CenterIn the event this information is protected by the Federal Confidentiality of Alcohol and Drug Abuse Patient Records regulations: The Federal rules restrict any use of the information to criminally investigate or prosecute any alcohol or drug abuse patient.[facility] CenterIn the event this information is protected by the Federal Confidentiality of Alcohol and Drug Abuse Patient Records regulations: The Federal rules restrict any use of the information to criminally investigate or prosecute any alcohol or drug abuse patient.[facility] CenterIn the event this information is protected by the Federal Confidentiality of Alcohol and Drug Abuse Patient Records regulations: The Federal rules restrict any use of the information to criminally investigate or prosecute any alcohol or drug abuse patient.[facility] CenterIn the event this information is protected by the Federal Confidentiality of Alcohol and Drug Abuse Patient Records regulations: The Federal rules restrict any use of the information to criminally investigate or prosecute any alcohol or drug abuse patient.[facility] CenterIn the event this information is protected by the Federal Confidentiality of Alcohol and Drug Abuse Patient Records regulations: The Federal rules restrict any use of the information to criminally investigate or prosecute any alcohol or drug abuse patient.[facility] CenterIn the event this information is protected by the Federal Confidentiality of Alcohol and Drug Abuse Patient Records regulations: The Federal rules restrict any use of the information to criminally investigate or prosecute any alcohol or drug abuse patient.[facility] CenterIn the event this information is protected by the Federal Confidentiality of Alcohol and Drug Abuse Patient Records regulations: The Federal rules restrict any use of the information to criminally investigate or prosecute any alcohol or drug abuse patient.[facility] CenterIn the event this information is protected by the Federal Confidentiality of Alcohol and Drug Abuse Patient Records regulations: The Federal rules restrict any use of the information to criminally investigate or prosecute any alcohol or drug abuse patient.[facility] CenterIn the event this information is protected by the Federal Confidentiality of Alcohol and Drug Abuse Patient Records regulations: The Federal rules restrict any use of the information to criminally investigate or prosecute any alcohol or drug abuse patient.[facility] CenterIn the event this information is protected by the Federal Confidentiality of Alcohol and Drug Abuse Patient Records regulations: The Federal rules restrict any use of the information to criminally investigate or prosecute any alcohol or drug abuse patient.[facility] CenterIn the event this information is protected by the Federal Confidentiality of Alcohol and Drug Abuse Patient Records regulations: The Federal rules restrict any use of the information to criminally investigate or prosecute any alcohol or drug abuse patient.[facility] CenterIn the event this information is protected by the Federal Confidentiality of Alcohol and Drug Abuse Patient Records regulations: The Federal rules restrict any use of the information to criminally investigate or prosecute any alcohol or drug abuse patient.[facility] CenterIn the event this information is protected by the Federal Confidentiality of Alcohol and Drug Abuse Patient Records regulations: The Federal rules restrict any use of the information to criminally investigate or prosecute any alcohol or drug abuse patient.[facility] CenterIn the event this information is protected by the Federal Confidentiality of Alcohol and Drug Abuse Patient Records regulations: The Federal rules restrict any use of the information to criminally investigate or prosecute any alcohol or drug abuse patient.[facility] CenterIn the event this information is protected by the Federal Confidentiality of Alcohol and Drug Abuse Patient Records regulations: The Federal rules restrict any use of the information to criminally investigate or prosecute any alcohol or drug abuse patient.[facility] CenterIn the event this information is protected by the Federal Confidentiality of Alcohol and Drug Abuse Patient Records regulations: The Federal rules restrict any use of the information to criminally investigate or prosecute any alcohol or drug abuse patient.[facility] CenterIn the event this information is protected by the Federal Confidentiality of Alcohol and Drug Abuse Patient Records regulations: The Federal rules restrict any use of the information to criminally investigate or prosecute any alcohol or drug abuse patient.[facility] CenterIn the event this information is protected by the Federal Confidentiality of Alcohol and Drug Abuse Patient Records regulations: The Federal rules restrict any use of the information to criminally investigate or prosecute any alcohol or drug abuse patient.[facility] CenterIn the event this information is protected by the Federal Confidentiality of Alcohol and Drug Abuse Patient Records regulations: The Federal rules restrict any use of the information to criminally investigate or prosecute any alcohol or drug abuse patient.[facility] CenterIn the event this information is protected by the Federal Confidentiality of Alcohol and Drug Abuse Patient Records regulations: The Federal rules restrict any use of the information to criminally investigate or prosecute any alcohol or drug abuse patient.[facility] CenterIn the event this information is protected by the Federal Confidentiality of Alcohol and Drug Abuse Patient Records regulations: The Federal rules restrict any use of the information to criminally investigate or prosecute any alcohol or drug abuse patient.[facility] CenterIn the event this information is protected by the Federal Confidentiality of Alcohol and Drug Abuse Patient Records regulations: The Federal rules restrict any use of the information to criminally investigate or prosecute any alcohol or drug abuse patient.[facility] CenterIn the event this information is protected by the Federal Confidentiality of Alcohol and Drug Abuse Patient Records regulations: The Federal rules restrict any use of the information to criminally investigate or prosecute any alcohol or drug abuse patient.[facility] CenterIn the event this information is protected by the Federal Confidentiality of Alcohol and Drug Abuse Patient Records regulations: The Federal rules restrict any use of the information to criminally investigate or prosecute any alcohol or drug abuse patient.[facility] CenterIn the event this information is protected by the Federal Confidentiality of Alcohol and Drug Abuse Patient Records regulations: The Federal rules restrict any use of the information to criminally investigate or prosecute any alcohol or drug abuse patient.[facility] CenterIn the event this information is protected by the Federal Confidentiality of Alcohol and Drug Abuse Patient Records regulations: The Federal rules restrict any use of the information to criminally investigate or prosecute any alcohol or drug abuse patient.[facility] CenterIn the event this information is protected by the Federal Confidentiality of Alcohol and Drug Abuse Patient Records regulations: The Federal rules restrict any use of the information to criminally investigate or prosecute any alcohol or drug abuse patient.[facility] CenterIn the event this information is protected by the Federal Confidentiality of Alcohol and Drug Abuse Patient Records regulations: The Federal rules restrict any use of the information to criminally investigate or prosecute any alcohol or drug abuse patient.[facility] CenterIn the event this information is protected by the Federal Confidentiality of Alcohol and Drug Abuse Patient Records regulations: The Federal rules restrict any use of the information to criminally investigate or prosecute any alcohol or drug abuse patient.[facility] CenterIn the event this information is protected by the Federal Confidentiality of Alcohol and Drug Abuse Patient Records regulations: The Federal rules restrict any use of the information to criminally investigate or prosecute any alcohol or drug abuse patient.[facility] CenterIn the event this information is protected by the Federal Confidentiality of Alcohol and Drug Abuse Patient Records regulations: The Federal rules restrict any use of the information to criminally investigate or prosecute any alcohol or drug abuse patient.[facility] CenterIn the event this information is protected by the Federal Confidentiality of Alcohol and Drug Abuse Patient Records regulations: The Federal rules restrict any use of the information to criminally investigate or prosecute any alcohol or drug abuse patient.[facility] CenterIn the event this information is protected by the Federal Confidentiality of Alcohol and Drug Abuse Patient Records regulations: The Federal rules restrict any use of the information to criminally investigate or prosecute any alcohol or drug abuse patient.[facility] CenterIn the event this information is protected by the Federal Confidentiality of Alcohol and Drug Abuse Patient Records regulations: The Federal rules restrict any use of the information to criminally investigate or prosecute any alcohol or drug abuse patient.[facility] CenterIn the event this information is protected by the Federal Confidentiality of Alcohol and Drug Abuse Patient Records regulations: The Federal rules restrict any use of the information to criminally investigate or prosecute any alcohol or drug abuse patient.[facility] CenterIn the event this information is protected by the Federal Confidentiality of Alcohol and Drug Abuse Patient Records regulations: The Federal rules restrict any use of the information to criminally investigate or prosecute any alcohol or drug abuse patient.[facility] CenterIn the event this information is protected by the Federal Confidentiality of Alcohol and Drug Abuse Patient Records regulations: The Federal rules restrict any use of the information to criminally investigate or prosecute any alcohol or drug abuse patient.[facility] CenterIn the event this information is protected by the Federal Confidentiality of Alcohol and Drug Abuse Patient Records regulations: The Federal rules restrict any use of the information to criminally investigate or prosecute any alcohol or drug abuse patient.[facility] CenterIn the event this information is protected by the Federal Confidentiality of Alcohol and Drug Abuse Patient Records regulations: The Federal rules restrict any use of the information to criminally investigate or prosecute any alcohol or drug abuse patient.[facility] CenterIn the event this information is protected by the Federal Confidentiality of Alcohol and Drug Abuse Patient Records regulations: The Federal rules restrict any use of the information to criminally investigate or prosecute any alcohol or drug abuse patient.[facility] CenterIn the event this information is protected by the Federal Confidentiality of Alcohol and Drug Abuse Patient Records regulations: The Federal rules restrict any use of the information to criminally investigate or prosecute any alcohol or drug abuse patient.[facility] CenterIn the event this information is protected by the Federal Confidentiality of Alcohol and Drug Abuse Patient Records regulations: The Federal rules restrict any use of the information to criminally investigate or prosecute any alcohol or drug abuse patient.[facility] CenterIn the event this information is protected by the Federal Confidentiality of Alcohol and Drug Abuse Patient Records regulations: The Federal rules restrict any use of the information to criminally investigate or prosecute any alcohol or drug abuse patient.[facility] CenterIn the event this information is protected by the Federal Confidentiality of Alcohol and Drug Abuse Patient Records regulations: The Federal rules restrict any use of the information to criminally investigate or prosecute any alcohol or drug abuse patient.[facility] CenterIn the event this information is protected by the Federal Confidentiality of Alcohol and Drug Abuse Patient Records regulations: The Federal rules restrict any use of the information to criminally investigate or prosecute any alcohol or drug abuse patient.[facility] CenterIn the event this information is protected by the Federal Confidentiality of Alcohol and Drug Abuse Patient Records regulations: The Federal rules restrict any use of the information to criminally investigate or prosecute any alcohol or drug abuse patient.[facility] CenterIn the event this information is protected by the Federal Confidentiality of Alcohol and Drug Abuse Patient Records regulations: The Federal rules restrict any use of the information to criminally investigate or prosecute any alcohol or drug abuse patient.[facility] CenterIn the event this information is protected by the Federal Confidentiality of Alcohol and Drug Abuse Patient Records regulations: The Federal rules restrict any use of the information to criminally investigate or prosecute any alcohol or drug abuse patient.[facility] CenterIn the event this information is protected by the Federal Confidentiality of Alcohol and Drug Abuse Patient Records regulations: The Federal rules restrict any use of the information to criminally investigate or prosecute any alcohol or drug abuse patient.[facility] CenterIn the event this information is protected by the Federal Confidentiality of Alcohol and Drug Abuse Patient Records regulations: The Federal rules restrict any use of the information to criminally investigate or prosecute any alcohol or drug abuse patient.[facility] CenterIn the event this information is protected by the Federal Confidentiality of Alcohol and Drug Abuse Patient Records regulations: The Federal rules restrict any use of the information to criminally investigate or prosecute any alcohol or drug abuse patient.[facility] CenterIn the event this information is protected by the Federal Confidentiality of Alcohol and Drug Abuse Patient Records regulations: The Federal rules restrict any use of the information to criminally investigate or prosecute any alcohol or drug abuse patient.[facility] CenterIn the event this information is protected by the Federal Confidentiality of Alcohol and Drug Abuse Patient Records regulations: The Federal rules restrict any use of the information to criminally investigate or prosecute any alcohol or drug abuse patient.[facility] CenterIn the event this information is protected by the Federal Confidentiality of Alcohol and Drug Abuse Patient Records regulations: The Federal rules restrict any use of the information to criminally investigate or prosecute any alcohol or drug abuse patient.[facility] CenterIn the event this information is protected by the Federal Confidentiality of Alcohol and Drug Abuse Patient Records regulations: The Federal rules restrict any use of the information to criminally investigate or prosecute any alcohol or drug abuse patient.[facility] CenterIn the event this information is protected by the Federal Confidentiality of Alcohol and Drug Abuse Patient Records regulations: The Federal rules restrict any use of the information to criminally investigate or prosecute any alcohol or drug abuse patient.[facility] CenterIn the event this information is protected by the Federal Confidentiality of Alcohol and Drug Abuse Patient Records regulations: The Federal rules restrict any use of the information to criminally investigate or prosecute any alcohol or drug abuse patient.[facility] CenterIn the event this information is protected by the Federal Confidentiality of Alcohol and Drug Abuse Patient Records regulations: The Federal rules restrict any use of the information to criminally investigate or prosecute any alcohol or drug abuse patient.[facility] CenterIn the event this information is protected by the Federal Confidentiality of Alcohol and Drug Abuse Patient Records regulations: The Federal rules restrict any use of the information to criminally investigate or prosecute any alcohol or drug abuse patient.[facility] CenterIn the event this information is protected by the Federal Confidentiality of Alcohol and Drug Abuse Patient Records regulations: The Federal rules restrict any use of the information to criminally investigate or prosecute any alcohol or drug abuse patient.[facility] CenterIn the event this information is protected by the Federal Confidentiality of Alcohol and Drug Abuse Patient Records regulations: The Federal rules restrict any use of the information to criminally investigate or prosecute any alcohol or drug abuse patient.[facility] CenterIn the event this information is protected by the Federal Confidentiality of Alcohol and Drug Abuse Patient Records regulations: The Federal rules restrict any use of the information to criminally investigate or prosecute any alcohol or drug abuse patient.[facility] CenterIn the event this information is protected by the Federal Confidentiality of Alcohol and Drug Abuse Patient Records regulations: The Federal rules restrict any use of the information to criminally investigate or prosecute any alcohol or drug abuse patient.[facility] CenterIn the event this information is protected by the Federal Confidentiality of Alcohol and Drug Abuse Patient Records regulations: The Federal rules restrict any use of the information to criminally investigate or prosecute any alcohol or drug abuse patient.[facility] CenterIn the event this information is protected by the Federal Confidentiality of Alcohol and Drug Abuse Patient Records regulations: The Federal rules restrict any use of the information to criminally investigate or prosecute any alcohol or drug abuse patient.[facility] CenterIn the event this information is protected by the Federal Confidentiality of Alcohol and Drug Abuse Patient Records regulations: The Federal rules restrict any use of the information to criminally investigate or prosecute any alcohol or drug abuse patient.[facility] CenterIn the event this information is protected by the Federal Confidentiality of Alcohol and Drug Abuse Patient Records regulations: The Federal rules restrict any use of the information to criminally investigate or prosecute any alcohol or drug abuse patient.[facility] CenterIn the event this information is protected by the Federal Confidentiality of Alcohol and Drug Abuse Patient Records regulations: The Federal rules restrict any use of the information to criminally investigate or prosecute any alcohol or drug abuse patient.[facility] CenterIn the event this information is protected by the Federal Confidentiality of Alcohol and Drug Abuse Patient Records regulations: The Federal rules restrict any use of the information to criminally investigate or prosecute any alcohol or drug abuse patient.[facility] CenterIn the event this information is protected by the Federal Confidentiality of Alcohol and Drug Abuse Patient Records regulations: The Federal rules restrict any use of the information to criminally investigate or prosecute any alcohol or drug abuse patient.[facility] CenterIn the event this information is protected by the Federal Confidentiality of Alcohol and Drug Abuse Patient Records regulations: The Federal rules restrict any use of the information to criminally investigate or prosecute any alcohol or drug abuse patient.[facility] CenterIn the event this information is protected by the Federal Confidentiality of Alcohol and Drug Abuse Patient Records regulations: The Federal rules restrict any use of the information to criminally investigate or prosecute any alcohol or drug abuse patient.[facility] CenterIn the event this information is protected by the Federal Confidentiality of Alcohol and Drug Abuse Patient Records regulations: The Federal rules restrict any use of the information to criminally investigate or prosecute any alcohol or drug abuse patient.[facility] CenterIn the event this information is protected by the Federal Confidentiality of Alcohol and Drug Abuse Patient Records regulations: The Federal rules restrict any use of the information to criminally investigate or prosecute any alcohol or drug abuse patient.[facility] CenterIn the event this information is protected by the Federal Confidentiality of Alcohol and Drug Abuse Patient Records regulations: The Federal rules restrict any use of the information to criminally investigate or prosecute any alcohol or drug abuse patient.[facility] CenterIn the event this information is protected by the Federal Confidentiality of Alcohol and Drug Abuse Patient Records regulations: The Federal rules restrict any use of the information to criminally investigate or prosecute any alcohol or drug abuse patient.[facility] CenterIn the event this information is protected by the Federal Confidentiality of Alcohol and Drug Abuse Patient Records regulations: The Federal rules restrict any use of the information to criminally investigate or prosecute any alcohol or drug abuse patient.[facility] CenterIn the event this information is protected by the Federal Confidentiality of Alcohol and Drug Abuse Patient Records regulations: The Federal rules restrict any use of the information to criminally investigate or prosecute any alcohol or drug abuse patient.[facility] CenterIn the event this information is protected by the Federal Confidentiality of Alcohol and Drug Abuse Patient Records regulations: The Federal rules restrict any use of the information to criminally investigate or prosecute any alcohol or drug abuse patient.[facility] CenterIn the event this information is protected by the Federal Confidentiality of Alcohol and Drug Abuse Patient Records regulations: The Federal rules restrict any use of the information to criminally investigate or prosecute any alcohol or drug abuse patient.[facility] CenterIn the event this information is protected by the Federal Confidentiality of Alcohol and Drug Abuse Patient Records regulations: The Federal rules restrict any use of the information to criminally investigate or prosecute any alcohol or drug abuse patient.[facility] CenterIn the event this information is protected by the Federal Confidentiality of Alcohol and Drug Abuse Patient Records regulations: The Federal rules restrict any use of the information to criminally investigate or prosecute any alcohol or drug abuse patient.[facility] CenterIn the event this information is protected by the Federal Confidentiality of Alcohol and Drug Abuse Patient Records regulations: The Federal rules restrict any use of the information to criminally investigate or prosecute any alcohol or drug abuse patient.[facility] CenterIn the event this information is protected by the Federal Confidentiality of Alcohol and Drug Abuse Patient Records regulations: The Federal rules restrict any use of the information to criminally investigate or prosecute any alcohol or drug abuse patient.[facility] CenterIn the event this information is protected by the Federal Confidentiality of Alcohol and Drug Abuse Patient Records regulations: The Federal rules restrict any use of the information to criminally investigate or prosecute any alcohol or drug abuse patient.[facility] CenterIn the event this information is protected by the Federal Confidentiality of Alcohol and Drug Abuse Patient Records regulations: The Federal rules restrict any use of the information to criminally investigate or prosecute any alcohol or drug abuse patient.[facility] CenterIn the event this information is protected by the Federal Confidentiality of Alcohol and Drug Abuse Patient Records regulations: The Federal rules restrict any use of the information to criminally investigate or prosecute any alcohol or drug abuse patient.[facility] CenterIn the event this information is protected by the Federal Confidentiality of Alcohol and Drug Abuse Patient Records regulations: The Federal rules restrict any use of the information to criminally investigate or prosecute any alcohol or drug abuse patient.[facility] CenterIn the event this information is protected by the Federal Confidentiality of Alcohol and Drug Abuse Patient Records regulations: The Federal rules restrict any use of the information to criminally investigate or prosecute any alcohol or drug abuse patient.[facility] CenterIn the event this information is protected by the Federal Confidentiality of Alcohol and Drug Abuse Patient Records regulations: The Federal rules restrict any use of the information to criminally investigate or prosecute any alcohol or drug abuse patient.[facility] CenterIn the event this information is protected by the Federal Confidentiality of Alcohol and Drug Abuse Patient Records regulations: The Federal rules restrict any use of the information to criminally investigate or prosecute any alcohol or drug abuse patient.[facility] CenterIn the event this information is protected by the Federal Confidentiality of Alcohol and Drug Abuse Patient Records regulations: The Federal rules restrict any use of the information to criminally investigate or prosecute any alcohol or drug abuse patient.[facility] CenterIn the event this information is protected by the Federal Confidentiality of Alcohol and Drug Abuse Patient Records regulations: The Federal rules restrict any use of the information to criminally investigate or prosecute any alcohol or drug abuse patient.[facility] CenterIn the event this information is protected by the Federal Confidentiality of Alcohol and Drug Abuse Patient Records regulations: The Federal rules restrict any use of the information to criminally investigate or prosecute any alcohol or drug abuse patient.[facility] CenterIn the event this information is protected by the Federal Confidentiality of Alcohol and Drug Abuse Patient Records regulations: The Federal rules restrict any use of the information to criminally investigate or prosecute any alcohol or drug abuse patient.[facility] CenterIn the event this information is protected by the Federal Confidentiality of Alcohol and Drug Abuse Patient Records regulations: The Federal rules restrict any use of the information to criminally investigate or prosecute any alcohol or drug abuse patient.[facility] CenterIn the event this information is protected by the Federal Confidentiality of Alcohol and Drug Abuse Patient Records regulations: The Federal rules restrict any use of the information to criminally investigate or prosecute any alcohol or drug abuse patient.[facility] CenterIn the event this information is protected by the Federal Confidentiality of Alcohol and Drug Abuse Patient Records regulations: The Federal rules restrict any use of the information to criminally investigate or prosecute any alcohol or drug abuse patient.[facility] CenterIn the event this information is protected by the Federal Confidentiality of Alcohol and Drug Abuse Patient Records regulations: The Federal rules restrict any use of the information to criminally investigate or prosecute any alcohol or drug abuse patient.[facility] CenterIn the event this information is protected by the Federal Confidentiality of Alcohol and Drug Abuse Patient Records regulations: The Federal rules restrict any use of the information to criminally investigate or prosecute any alcohol or drug abuse patient.[facility] CenterIn the event this information is protected by the Federal Confidentiality of Alcohol and Drug Abuse Patient Records regulations: The Federal rules restrict any use of the information to criminally investigate or prosecute any alcohol or drug abuse patient.[facility] CenterIn the event this information is protected by the Federal Confidentiality of Alcohol and Drug Abuse Patient Records regulations: The Federal rules restrict any use of the information to criminally investigate or prosecute any alcohol or drug abuse patient.[facility] CenterIn the event this information is protected by the Federal Confidentiality of Alcohol and Drug Abuse Patient Records regulations: The Federal rules restrict any use of the information to criminally investigate or prosecute any alcohol or drug abuse patient.[facility] CenterIn the event this information is protected by the Federal Confidentiality of Alcohol and Drug Abuse Patient Records regulations: The Federal rules restrict any use of the information to criminally investigate or prosecute any alcohol or drug abuse patient.[facility] CenterIn the event this information is protected by the Federal Confidentiality of Alcohol and Drug Abuse Patient Records regulations: The Federal rules restrict any use of the information to criminally investigate or prosecute any alcohol or drug abuse patient.[facility] CenterIn the event this information is protected by the Federal Confidentiality of Alcohol and Drug Abuse Patient Records regulations: The Federal rules restrict any use of the information to criminally investigate or prosecute any alcohol or drug abuse patient.[facility] CenterIn the event this information is protected by the Federal Confidentiality of Alcohol and Drug Abuse Patient Records regulations: The Federal rules restrict any use of the information to criminally investigate or prosecute any alcohol or drug abuse patient.[facility] CenterIn the event this information is protected by the Federal Confidentiality of Alcohol and Drug Abuse Patient Records regulations: The Federal rules restrict any use of the information to criminally investigate or prosecute any alcohol or drug abuse patient.[facility] CenterIn the event this information is protected by the Federal Confidentiality of Alcohol and Drug Abuse Patient Records regulations: The Federal rules restrict any use of the information to criminally investigate or prosecute any alcohol or drug abuse patient.[facility] CenterIn the event this information is protected by the Federal Confidentiality of Alcohol and Drug Abuse Patient Records regulations: The Federal rules restrict any use of the information to criminally investigate or prosecute any alcohol or drug abuse patient.[facility] CenterIn the event this information is protected by the Federal Confidentiality of Alcohol and Drug Abuse Patient Records regulations: The Federal rules restrict any use of the information to criminally investigate or prosecute any alcohol or drug abuse patient.[facility] CenterIn the event this information is protected by the Federal Confidentiality of Alcohol and Drug Abuse Patient Records regulations: The Federal rules restrict any use of the information to criminally investigate or prosecute any alcohol or drug abuse patient.[facility] CenterIn the event this information is protected by the Federal Confidentiality of Alcohol and Drug Abuse Patient Records regulations: The Federal rules restrict any use of the information to criminally investigate or prosecute any alcohol or drug abuse patient.[facility] CenterIn the event this information is protected by the Federal Confidentiality of Alcohol and Drug Abuse Patient Records regulations: The Federal rules restrict any use of the information to criminally investigate or prosecute any alcohol or drug abuse patient.[facility] CenterIn the event this information is protected by the Federal Confidentiality of Alcohol and Drug Abuse Patient Records regulations: The Federal rules restrict any use of the information to criminally investigate or prosecute any alcohol or drug abuse patient.[facility] CenterIn the event this information is protected by the Federal Confidentiality of Alcohol and Drug Abuse Patient Records regulations: The Federal rules restrict any use of the information to criminally investigate or prosecute any alcohol or drug abuse patient.[facility] CenterIn the event this information is protected by the Federal Confidentiality of Alcohol and Drug Abuse Patient Records regulations: The Federal rules restrict any use of the information to criminally investigate or prosecute any alcohol or drug abuse patient.[facility] CenterIn the event this information is protected by the Federal Confidentiality of Alcohol and Drug Abuse Patient Records regulations: The Federal rules restrict any use of the information to criminally investigate or prosecute any alcohol or drug abuse patient.[facility] CenterIn the event this information is protected by the Federal Confidentiality of Alcohol and Drug Abuse Patient Records regulations: The Federal rules restrict any use of the information to criminally investigate or prosecute any alcohol or drug abuse patient.[facility] CenterIn the event this information is protected by the Federal Confidentiality of Alcohol and Drug Abuse Patient Records regulations: The Federal rules restrict any use of the information to criminally investigate or prosecute any alcohol or drug abuse patient.[facility] CenterIn the event this information is protected by the Federal Confidentiality of Alcohol and Drug Abuse Patient Records regulations: The Federal rules restrict any use of the information to criminally investigate or prosecute any alcohol or drug abuse patient.[facility] CenterIn the event this information is protected by the Federal Confidentiality of Alcohol and Drug Abuse Patient Records regulations: The Federal rules restrict any use of the information to criminally investigate or prosecute any alcohol or drug abuse patient.[facility] CenterIn the event this information is protected by the Federal Confidentiality of Alcohol and Drug Abuse Patient Records regulations: The Federal rules restrict any use of the information to criminally investigate or prosecute any alcohol or drug abuse patient.[facility] CenterIn the event this information is protected by the Federal Confidentiality of Alcohol and Drug Abuse Patient Records regulations: The Federal rules restrict any use of the information to criminally investigate or prosecute any alcohol or drug abuse patient.[facility] CenterIn the event this information is protected by the Federal Confidentiality of Alcohol and Drug Abuse Patient Records regulations: The Federal rules restrict any use of the information to criminally investigate or prosecute any alcohol or drug abuse patient.[facility] CenterIn the event this information is protected by the Federal Confidentiality of Alcohol and Drug Abuse Patient Records regulations: The Federal rules restrict any use of the information to criminally investigate or prosecute any alcohol or drug abuse patient.[facility] CenterIn the event this information is protected by the Federal Confidentiality of Alcohol and Drug Abuse Patient Records regulations: The Federal rules restrict any use of the information to criminally investigate or prosecute any alcohol or drug abuse patient.[facility] CenterIn the event this information is protected by the Federal Confidentiality of Alcohol and Drug Abuse Patient Records regulations: The Federal rules restrict any use of the information to criminally investigate or prosecute any alcohol or drug abuse patient.[facility] CenterIn the event this information is protected by the Federal Confidentiality of Alcohol and Drug Abuse Patient Records regulations: The Federal rules restrict any use of the information to criminally investigate or prosecute any alcohol or drug abuse patient.[facility] CenterIn the event this information is protected by the Federal Confidentiality of Alcohol and Drug Abuse Patient Records regulations: The Federal rules restrict any use of the information to criminally investigate or prosecute any alcohol or drug abuse patient.[facility] CenterIn the event this information is protected by the Federal Confidentiality of Alcohol and Drug Abuse Patient Records regulations: The Federal rules restrict any use of the information to criminally investigate or prosecute any alcohol or drug abuse patient.[facility] CenterIn the event this information is protected by the Federal Confidentiality of Alcohol and Drug Abuse Patient Records regulations: The Federal rules restrict any use of the information to criminally investigate or prosecute any alcohol or drug abuse patient.[facility] CenterIn the event this information is protected by the Federal Confidentiality of Alcohol and Drug Abuse Patient Records regulations: The Federal rules restrict any use of the information to criminally investigate or prosecute any alcohol or drug abuse patient.[facility] CenterIn the event this information is protected by the Federal Confidentiality of Alcohol and Drug Abuse Patient Records regulations: The Federal rules restrict any use of the information to criminally investigate or prosecute any alcohol or drug abuse patient.[facility] CenterIn the event this information is protected by the Federal Confidentiality of Alcohol and Drug Abuse Patient Records regulations: The Federal rules restrict any use of the information to criminally investigate or prosecute any alcohol or drug abuse patient.[facility] CenterIn the event this information is protected by the Federal Confidentiality of Alcohol and Drug Abuse Patient Records regulations: The Federal rules restrict any use of the information to criminally investigate or prosecute any alcohol or drug abuse patient.[facility] CenterIn the event this information is protected by the Federal Confidentiality of Alcohol and Drug Abuse Patient Records regulations: The Federal rules restrict any use of the information to criminally investigate or prosecute any alcohol or drug abuse patient.[facility] CenterIn the event this information is protected by the Federal Confidentiality of Alcohol and Drug Abuse Patient Records regulations: The Federal rules restrict any use of the information to criminally investigate or prosecute any alcohol or drug abuse patient.[facility] CenterIn the event this information is protected by the Federal Confidentiality of Alcohol and Drug Abuse Patient Records regulations: The Federal rules restrict any use of the information to criminally investigate or prosecute any alcohol or drug abuse patient.[facility] CenterIn the event this information is protected by the Federal Confidentiality of Alcohol and Drug Abuse Patient Records regulations: The Federal rules restrict any use of the information to criminally investigate or prosecute any alcohol or drug abuse patient.[facility] CenterIn the event this information is protected by the Federal Confidentiality of Alcohol and Drug Abuse Patient Records regulations: The Federal rules restrict any use of the information to criminally investigate or prosecute any alcohol or drug abuse patient.[facility] CenterIn the event this information is protected by the Federal Confidentiality of Alcohol and Drug Abuse Patient Records regulations: The Federal rules restrict any use of the information to criminally investigate or prosecute any alcohol or drug abuse patient.[facility] CenterIn the event this information is protected by the Federal Confidentiality of Alcohol and Drug Abuse Patient Records regulations: The Federal rules restrict any use of the information to criminally investigate or prosecute any alcohol or drug abuse patient.[facility] CenterIn the event this information is protected by the Federal Confidentiality of Alcohol and Drug Abuse Patient Records regulations: The Federal rules restrict any use of the information to criminally investigate or prosecute any alcohol or drug abuse patient.[facility] CenterIn the event this information is protected by the Federal Confidentiality of Alcohol and Drug Abuse Patient Records regulations: The Federal rules restrict any use of the information to criminally investigate or prosecute any alcohol or drug abuse patient.[facility] CenterIn the event this information is protected by the Federal Confidentiality of Alcohol and Drug Abuse Patient Records regulations: The Federal rules restrict any use of the information to criminally investigate or prosecute any alcohol or drug abuse patient.[facility] CenterIn the event this information is protected by the Federal Confidentiality of Alcohol and Drug Abuse Patient Records regulations: The Federal rules restrict any use of the information to criminally investigate or prosecute any alcohol or drug abuse patient.[facility] CenterIn the event this information is protected by the Federal Confidentiality of Alcohol and Drug Abuse Patient Records regulations: The Federal rules restrict any use of the information to criminally investigate or prosecute any alcohol or drug abuse patient.[facility] CenterIn the event this information is protected by the Federal Confidentiality of Alcohol and Drug Abuse Patient Records regulations: The Federal rules restrict any use of the information to criminally investigate or prosecute any alcohol or drug abuse patient.[facility] CenterIn the event this information is protected by the Federal Confidentiality of Alcohol and Drug Abuse Patient Records regulations: The Federal rules restrict any use of the information to criminally investigate or prosecute any alcohol or drug abuse patient.[facility] CenterIn the event this information is protected by the Federal Confidentiality of Alcohol and Drug Abuse Patient Records regulations: The Federal rules restrict any use of the information to criminally investigate or prosecute any alcohol or drug abuse patient.[facility] CenterIn the event this information is protected by the Federal Confidentiality of Alcohol and Drug Abuse Patient Records regulations: The Federal rules restrict any use of the information to criminally investigate or prosecute any alcohol or drug abuse patient.[facility] CenterIn the event this information is protected by the Federal Confidentiality of Alcohol and Drug Abuse Patient Records regulations: The Federal rules restrict any use of the information to criminally investigate or prosecute any alcohol or drug abuse patient.[facility] CenterIn the event this information is protected by the Federal Confidentiality of Alcohol and Drug Abuse Patient Records regulations: The Federal rules restrict any use of the information to criminally investigate or prosecute any alcohol or drug abuse patient.[facility] CenterIn the event this information is protected by the Federal Confidentiality of Alcohol and Drug Abuse Patient Records regulations: The Federal rules restrict any use of the information to criminally investigate or prosecute any alcohol or drug abuse patient.[facility] CenterIn the event this information is protected by the Federal Confidentiality of Alcohol and Drug Abuse Patient Records regulations: The Federal rules restrict any use of the information to criminally investigate or prosecute any alcohol or drug abuse patient.[facility] CenterIn the event this information is protected by the Federal Confidentiality of Alcohol and Drug Abuse Patient Records regulations: The Federal rules restrict any use of the information to criminally investigate or prosecute any alcohol or drug abuse patient.[facility] CenterIn the event this information is protected by the Federal Confidentiality of Alcohol and Drug Abuse Patient Records regulations: The Federal rules restrict any use of the information to criminally investigate or prosecute any alcohol or drug abuse patient.[facility] CenterIn the event this information is protected by the Federal Confidentiality of Alcohol and Drug Abuse Patient Records regulations: The Federal rules restrict any use of the information to criminally investigate or prosecute any alcohol or drug abuse patient.[facility] CenterIn the event this information is protected by the Federal Confidentiality of Alcohol and Drug Abuse Patient Records regulations: The Federal rules restrict any use of the information to criminally investigate or prosecute any alcohol or drug abuse patient.[facility] CenterIn the event this information is protected by the Federal Confidentiality of Alcohol and Drug Abuse Patient Records regulations: The Federal rules restrict any use of the information to criminally investigate or prosecute any alcohol or drug abuse patient.[facility] CenterIn the event this information is protected by the Federal Confidentiality of Alcohol and Drug Abuse Patient Records regulations: The Federal rules restrict any use of the information to criminally investigate or prosecute any alcohol or drug abuse patient.[facility] CenterIn the event this information is protected by the Federal Confidentiality of Alcohol and Drug Abuse Patient Records regulations: The Federal rules restrict any use of the information to criminally investigate or prosecute any alcohol or drug abuse patient.[facility] CenterIn the event this information is protected by the Federal Confidentiality of Alcohol and Drug Abuse Patient Records regulations: The Federal rules restrict any use of the information to criminally investigate or prosecute any alcohol or drug abuse patient.[facility] CenterIn the event this information is protected by the Federal Confidentiality of Alcohol and Drug Abuse Patient Records regulations: The Federal rules restrict any use of the information to criminally investigate or prosecute any alcohol or drug abuse patient.[facility] CenterIn the event this information is protected by the Federal Confidentiality of Alcohol and Drug Abuse Patient Records regulations: The Federal rules restrict any use of the information to criminally investigate or prosecute any alcohol or drug abuse patient.[facility] CenterIn the event this information is protected by the Federal Confidentiality of Alcohol and Drug Abuse Patient Records regulations: The Federal rules restrict any use of the information to criminally investigate or prosecute any alcohol or drug abuse patient.[facility] CenterIn the event this information is protected by the Federal Confidentiality of Alcohol and Drug Abuse Patient Records regulations: The Federal rules restrict any use of the information to criminally investigate or prosecute any alcohol or drug abuse patient.[facility] CenterIn the event this information is protected by the Federal Confidentiality of Alcohol and Drug Abuse Patient Records regulations: The Federal rules restrict any use of the information to criminally investigate or prosecute any alcohol or drug abuse patient.[facility] CenterIn the event this information is protected by the Federal Confidentiality of Alcohol and Drug Abuse Patient Records regulations: The Federal rules restrict any use of the information to criminally investigate or prosecute any alcohol or drug abuse patient.[facility] CenterIn the event this information is protected by the Federal Confidentiality of Alcohol and Drug Abuse Patient Records regulations: The Federal rules restrict any use of the information to criminally investigate or prosecute any alcohol or drug abuse patient.[facility] CenterIn the event this information is protected by the Federal Confidentiality of Alcohol and Drug Abuse Patient Records regulations: The Federal rules restrict any use of the information to criminally investigate or prosecute any alcohol or drug abuse patient.[facility] CenterIn the event this information is protected by the Federal Confidentiality of Alcohol and Drug Abuse Patient Records regulations: The Federal rules restrict any use of the information to criminally investigate or prosecute any alcohol or drug abuse patient.[facility] CenterIn the event this information is protected by the Federal Confidentiality of Alcohol and Drug Abuse Patient Records regulations: The Federal rules restrict any use of the information to criminally investigate or prosecute any alcohol or drug abuse patient.[facility] CenterIn the event this information is protected by the Federal Confidentiality of Alcohol and Drug Abuse Patient Records regulations: The Federal rules restrict any use of the information to criminally investigate or prosecute any alcohol or drug abuse patient.[facility] CenterIn the event this information is protected by the Federal Confidentiality of Alcohol and Drug Abuse Patient Records regulations: The Federal rules restrict any use of the information to criminally investigate or prosecute any alcohol or drug abuse patient.[facility] CenterIn the event this information is protected by the Federal Confidentiality of Alcohol and Drug Abuse Patient Records regulations: The Federal rules restrict any use of the information to criminally investigate or prosecute any alcohol or drug abuse patient.[facility] CenterIn the event this information is protected by the Federal Confidentiality of Alcohol and Drug Abuse Patient Records regulations: The Federal rules restrict any use of the information to criminally investigate or prosecute any alcohol or drug abuse patient.[facility] CenterIn the event this information is protected by the Federal Confidentiality of Alcohol and Drug Abuse Patient Records regulations: The Federal rules restrict any use of the information to criminally investigate or prosecute any alcohol or drug abuse patient.[facility] CenterIn the event this information is protected by the Federal Confidentiality of Alcohol and Drug Abuse Patient Records regulations: The Federal rules restrict any use of the information to criminally investigate or prosecute any alcohol or drug abuse patient.[facility] CenterIn the event this information is protected by the Federal Confidentiality of Alcohol and Drug Abuse Patient Records regulations: The Federal rules restrict any use of the information to criminally investigate or prosecute any alcohol or drug abuse patient.[facility] CenterIn the event this information is protected by the Federal Confidentiality of Alcohol and Drug Abuse Patient Records regulations: The Federal rules restrict any use of the information to criminally investigate or prosecute any alcohol or drug abuse patient.[facility] CenterIn the event this information is protected by the Federal Confidentiality of Alcohol and Drug Abuse Patient Records regulations: The Federal rules restrict any use of the information to criminally investigate or prosecute any alcohol or drug abuse patient.[facility] CenterIn the event this information is protected by the Federal Confidentiality of Alcohol and Drug Abuse Patient Records regulations: The Federal rules restrict any use of the information to criminally investigate or prosecute any alcohol or drug abuse patient.[facility] CenterIn the event this information is protected by the Federal Confidentiality of Alcohol and Drug Abuse Patient Records regulations: The Federal rules restrict any use of the information to criminally investigate or prosecute any alcohol or drug abuse patient.[facility] CenterIn the event this information is protected by the Federal Confidentiality of Alcohol and Drug Abuse Patient Records regulations: The Federal rules restrict any use of the information to criminally investigate or prosecute any alcohol or drug abuse patient.[facility] CenterIn the event this information is protected by the Federal Confidentiality of Alcohol and Drug Abuse Patient Records regulations: The Federal rules restrict any use of the information to criminally investigate or prosecute any alcohol or drug abuse patient.[facility] CenterIn the event this information is protected by the Federal Confidentiality of Alcohol and Drug Abuse Patient Records regulations: The Federal rules restrict any use of the information to criminally investigate or prosecute any alcohol or drug abuse patient.[facility] CenterIn the event this information is protected by the Federal Confidentiality of Alcohol and Drug Abuse Patient Records regulations: The Federal rules restrict any use of the information to criminally investigate or prosecute any alcohol or drug abuse patient.[facility] CenterIn the event this information is protected by the Federal Confidentiality of Alcohol and Drug Abuse Patient Records regulations: The Federal rules restrict any use of the information to criminally investigate or prosecute any alcohol or drug abuse patient.[facility] CenterIn the event this information is protected by the Federal Confidentiality of Alcohol and Drug Abuse Patient Records regulations: The Federal rules restrict any use of the information to criminally investigate or prosecute any alcohol or drug abuse patient.[facility] CenterIn the event this information is protected by the Federal Confidentiality of Alcohol and Drug Abuse Patient Records regulations: The Federal rules restrict any use of the information to criminally investigate or prosecute any alcohol or drug abuse patient.[facility] CenterIn the event this information is protected by the Federal Confidentiality of Alcohol and Drug Abuse Patient Records regulations: The Federal rules restrict any use of the information to criminally investigate or prosecute any alcohol or drug abuse patient.[facility] CenterIn the event this information is protected by the Federal Confidentiality of Alcohol and Drug Abuse Patient Records regulations: The Federal rules restrict any use of the information to criminally investigate or prosecute any alcohol or drug abuse patient.[facility] CenterIn the event this information is protected by the Federal Confidentiality of Alcohol and Drug Abuse Patient Records regulations: The Federal rules restrict any use of the information to criminally investigate or prosecute any alcohol or drug abuse patient.[facility] CenterIn the event this information is protected by the Federal Confidentiality of Alcohol and Drug Abuse Patient Records regulations: The Federal rules restrict any use of the information to criminally investigate or prosecute any alcohol or drug abuse patient.[facility] CenterIn the event this information is protected by the Federal Confidentiality of Alcohol and Drug Abuse Patient Records regulations: The Federal rules restrict any use of the information to criminally investigate or prosecute any alcohol or drug abuse patient.[facility] CenterIn the event this information is protected by the Federal Confidentiality of Alcohol and Drug Abuse Patient Records regulations: The Federal rules restrict any use of the information to criminally investigate or prosecute any alcohol or drug abuse patient.[facility] CenterIn the event this information is protected by the Federal Confidentiality of Alcohol and Drug Abuse Patient Records regulations: The Federal rules restrict any use of the information to criminally investigate or prosecute any alcohol or drug abuse patient.[facility] CenterIn the event this information is protected by the Federal Confidentiality of Alcohol and Drug Abuse Patient Records regulations: The Federal rules restrict any use of the information to criminally investigate or prosecute any alcohol or drug abuse patient.[facility] CenterIn the event this information is protected by the Federal Confidentiality of Alcohol and Drug Abuse Patient Records regulations: The Federal rules restrict any use of the information to criminally investigate or prosecute any alcohol or drug abuse patient.[facility] CenterIn the event this information is protected by the Federal Confidentiality of Alcohol and Drug Abuse Patient Records regulations: The Federal rules restrict any use of the information to criminally investigate or prosecute any alcohol or drug abuse patient.[facility] CenterIn the event this information is protected by the Federal Confidentiality of Alcohol and Drug Abuse Patient Records regulations: The Federal rules restrict any use of the information to criminally investigate or prosecute any alcohol or drug abuse patient.[facility] CenterIn the event this information is protected by the Federal Confidentiality of Alcohol and Drug Abuse Patient Records regulations: The Federal rules restrict any use of the information to criminally investigate or prosecute any alcohol or drug abuse patient.[facility] CenterIn the event this information is protected by the Federal Confidentiality of Alcohol and Drug Abuse Patient Records regulations: The Federal rules restrict any use of the information to criminally investigate or prosecute any alcohol or drug abuse patient.[facility] CenterIn the event this information is protected by the Federal Confidentiality of Alcohol and Drug Abuse Patient Records regulations: The Federal rules restrict any use of the information to criminally investigate or prosecute any alcohol or drug abuse patient.[facility] CenterIn the event this information is protected by the Federal Confidentiality of Alcohol and Drug Abuse Patient Records regulations: The Federal rules restrict any use of the information to criminally investigate or prosecute any alcohol or drug abuse patient.[facility] CenterIn the event this information is protected by the Federal Confidentiality of Alcohol and Drug Abuse Patient Records regulations: The Federal rules restrict any use of the information to criminally investigate or prosecute any alcohol or drug abuse patient.[facility] CenterIn the event this information is protected by the Federal Confidentiality of Alcohol and Drug Abuse Patient Records regulations: The Federal rules restrict any use of the information to criminally investigate or prosecute any alcohol or drug abuse patient.[facility] CenterIn the event this information is protected by the Federal Confidentiality of Alcohol and Drug Abuse Patient Records regulations: The Federal rules restrict any use of the information to criminally investigate or prosecute any alcohol or drug abuse patient.[facility] CenterIn the event this information is protected by the Federal Confidentiality of Alcohol and Drug Abuse Patient Records regulations: The Federal rules restrict any use of the information to criminally investigate or prosecute any alcohol or drug abuse patient.[facility] Reason for Visit (unrecogniz ed section and content) Reason Comments New Pain Specialty Diagnoses / Procedures Referred By Contac t Referred To Contact Orthopedics Diagnoses Chronic pain of left knee Procedures CONSULT TO ORTHOPAEDICS OFFICE/OUTPATIENT [facility] 60-74 MINUTES Ignacio Cheatham MD [address] [place] [address] Referral ID Status Reason Start Date Expiration Date V isits Requested Visits Authorized [id number] Closed PCP Requested Referral 03/21/2022 03/21/2023 [address] Specialty Diagnoses / Procedures Referred By Contac t Referred To Contact TRANSPLANT Diagnoses Type II diabetes mellitus with complication (HCC) Hypertension, unspecified type Procedures CONSULT TO TRANSPLANT CENTER OFFICE/OUTPATIENT [facility] 60-74 MINUTES CHEST X-RAY, FRONT&LAT ECG ROUTINE ECG W/LEAST 12 LDS TRCG ONLY W/O I&R CT ANGIOGRAPHY CHEST W/CONTRAST/NONCONTRAST CT ABDOMEN W & W/O CONTRAST Goldy Hunter DO [address] [place] [id number] [facility] [address] [place] [id number] Referral ID Status Reason Start Date Expiration Date Visits Requested Visits Authorized [id number] 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 [...] (HCC) Procedures CONSULT TO ENDOCRINOLOGY OFFICE/OUTPATIENT [facility] MDM 60-74 MINUTES Ignacio Cheatham MD [address] [place] [address] Referral ID Status Reason Start Date Expiration Date V isits Requested Visits Authorized [id number] Closed PCP Requested Referral 05/08/2021 05/08/2022 1 1 Reason Comments Patient Education Reason Comments Transplant Evaluation Reason Comments Patient Education Assessment Specialty Diagnoses / Procedures Referred By Contac t Referred To Contact CT IMAGING Diagnoses Pre-transplant evaluation for kidney transplant Procedures CT ABD/PEL WO IVCON CT ABD & PELVIS W/O CONTRAST Linda Livingston MD [address] [place] [address] Ct Imaging Referral ID Status Reason Start Date Expiration Date V isits Requested Visits Authorized [id number] Closed Auto-Generated Referral Patient Cleared - INN [...] Procedures CONSULT TO VASCULAR SURGERY OFFICE/OUTPATIENT NEW [facility]IGH MDM 60-74 MINUTES Fab Cochran, PLISSE MACHINE OPERATOR HELPER.SALOONKEEPER [address] [place] [address] Referral ID Status Reason Start Date Expiration Date V isits Requested Visits Authorized [id number] Closed PCP Requested Referral 08/01/2021 07/30/2022 1 [...] neuropathy (HCC) Procedures CONSULT TO ENDOCRINOLOGY OFFICE/OUTPATIENT [facility] 60-74 MINUTES Ignacio Cheatham MD [address] [place] [address] Reason Comments Nurse Triage Call Reason Comments Head Congestion chest congestion, josef dyaches, sore throat, headache, nausea x 2 days Reason Comments Spirometry Specialty Diagnoses / Procedures Referred By Contac t Referred To Contact [facility] Diagnoses Pulmonary nodules Procedures SPIROMETRY - BASELINE AND POST DILATOR BRNCDILAT RSPSE SPMTRY PRE&POST-BRNCDILAT ADMN Dorene Macias MD [address] [phone] [facility] [address] [place] [id number] Referral ID Status Reason Start Date Expiration Date V isits Requested Visits Authorized [id number] Closed Auto-Generate d Referral 10/28/2021 11/27/2022 1 1 Specialty Diagnoses / Procedures Referred By Contac t Referred To Contact Diagnoses Poorly controlled type 2 diabetes mellitus (HCC) Procedures CONSULT TO DIABETES EDUCATION OFFICE/OUTPATIENT [facility] 60-74 MINUTES Rojelio Clark MD [address] [place] [address] Referral ID Status Reason Start Date Expiration Date V isits Requested Visits Authorized [id number] Closed PCP Requested Referral 10/02/2021 10/02/2022 1 1 Specialty Diagnoses / Procedures Referred By Ximenaac t Referred To Contact [facility] Diagnoses Pulmonary nodules Procedures LUNG VOLUMES Dorene Macias MD [address] [place] [address] [facility] [address] [place] [address] Referral ID Status Reason Start Date Expiration Date V isits Requested Visits Authorized [id number] Closed Auto-Generate d Referral 10/28/2021 11/27/2022 1 1 Specialty Diagnoses / Procedures Referred By Contac t Referred To Contact [facility] Diagnoses Pulmonary nodules Procedures LUNG DIFFUSION CAPACITY (DLCO) DIFFUSING CAPACITY Dorene Macias MD [address] [place] [address] [facility] [address] [place] [address] Referral ID Status Reason Start Date Expiration Date V isits Requested Visits Authorized [id number] Closed Auto-Generate d Referral 10/28/2021 11/27/2022 1 1 Reason Comments Refill Request Reason Comments Chronic Kidney Disease Monthly Touch Poi nt Call - OTP Reason Onset Date Comments Refill Request 12/05/2021 Reason Comments New Patient Specialty Diagnoses / Procedures Referred By Contac t Referred To Contact Diagnoses Anemia of renal disease Procedures CONSULT TO HEMATOLOGY/ONCOLOGY OFFICE/OUTPATIENT NEW HIGH MDM 60-74 MINUTES Fab Cochran, PLISSE MACHINE OPERATOR HELPER.SALOONKEEPER [address] [place] [address] Referral ID Status Reason Start Date Expiration Date V isits Requested Visits Authorized [id number] Closed PCP Requested Referral 12/05/2021 12/04/2022 1 1 Reason Comments Results Treatment Planning Reason Comments Chronic Kidney Disease OTP - monthly caleb ch point call Reason Comments Non-Chemotherapy Treatment Specialty Diagnoses / Procedures Referred By Contac t Referred To Contact Diagnoses Iron malabsorption H/O gastric bypass Chronic kidney disease (CKD), stage IV (severe) (HCC) Anemia in chronic kidney disease Procedures IRON SUCROSE INJECTION PER 1 MG Teagan Spencer MD [address] [place] [address] [facility] [address] [place] [address] Referral ID Status Reason Start Date Expiration Date V isits Requested Visits Authorized [id number] Authorized 12/24/2021 02/26/2022 5 5 Reason Comments Imm/Inj Specialty Diagnoses / Procedures Referred By Contac t Referred To Contact Diagnoses Iron malabsorption H/O gastric bypass Chronic kidney disease (CKD), stage IV (severe) (HCC) Anemia of renal disease Procedures INJ RETACRIT NON-ESRD USE (RETACRIT) Teagan Spencer MD [address] [place] [address] Iam [facility] [address] [place] [address] Referral ID Status Reason Start Date Expiration Date V isits Requested Visits Authorized [id number] Authorized 12/18/2021 03/01/2022 99 99 Reason Comments Pain (foot) left x few days, uns ure of injury, bruising Specialty Diagnoses / Procedures Referred By Contac t Referred To Contact Podiatry Diagnoses Poorly controlled diabetes mellitus (HCC) Onychomycosis Procedures CONSULT TO PODIATRY OFFICE/OUTPATIENT [facility] 60-74 MINUTES Ignacio Cheatham MD [address] [place] [address] Referral ID Status Reason Start Date Expiration Date V isits Requested Visits Authorized [id number] Closed PCP Requested Referral 03/26/2021 03/26/2022 1 [...] Dialysis Specialty Diagnoses / Procedures Referred By Contac t Referred To Contact Diagnoses Iron malabsorption H/O gastric bypass Chronic kidney disease (CKD), stage IV (severe) (HCC) Anemia of renal disease Procedures INJ RETACRIT NON-ESRD USE (RETACRIT) Teagan Spencer MD [address] [facility] [place] [address] Iam [facility] [address] [place] [address] Referral ID Status Reason Start Date Expiration Date V isits Requested Visits Authorized [id number] Authorized 12/18/2021 03/01/2023 99 99 Reason Comments Patient Update Vascular appt Reason Comments CKD Follow Up Optimal Transition P rogram/Prep for Dialysis Reason Comments ER F/U Reason Comments [employer] [place] Line Placement 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 Reason Comments Dialysis Reason Onset Date Comments CKD Follow Up Optimal Transiti on Program Patient Update 09/16/2022 Reason Comments Return Call Request Kidney Txp Evaluatio n Status Reason Comments Home Health Physical Therapy Order Reque st Reason Onset Date Comments Refill Request 10/14/2022 Reason Comments [facility] Reason Comments Hospital F/U Reason Comments ER F/U [facility] 10/30 for bilater al hand pain Reason Comments Short Term Disabiity Forms Reason Comments [facility], PT d/c pt on 3 Reason Comments Urinary Frequency Frequency and burnin g x 3 days Reason Comments Erroneous encounter-disregard Reason Comments Short term disability paperwork Reason Comments Established Patient Right knee pain - CT scan (09/12/2022), US (10/15/2022) and xray from [facility] Specialty Diagnoses / Procedures Referred By Alliosn t Referred To Contact Orthopedics Diagnoses Pain of right lower extremity Procedures CONSULT TO ORTHOPAEDICS OFFICE/OUTPATIENT [facility] 60-74 MINUTES Igncaio Cheatham MD [address] [place] [address] Referral ID Status Reason Start Date Expiration Date V isits Requested Visits Authorized [id number] Closed PCP Requested Referral 10/20/2022 10/20/2023 1 1 Reason Comments Follow Up 5 weeks post visit right tibia stress fr acture Reason Comments Pt going to [facility] ER Reason Comments PA--TRULICITY Reason Comments Radiology CT Specialty Diagnoses / Procedures Referred By Contac t Referred To Contact CT IMAGING Diagnoses Lung nodules Procedures CT CHEST WO IVCON DIAGNOSTIC COMPUTED TOMOGRAPHY THORAX W/O CNTRST Ignacio Cheatham MD [address] [place] [address] [place] [address] Referral ID Status Reason Start Date Expiration Date V isits Requested Visits Authorized [id number] Closed Auto-Generate d Referral 03/20/2023 04/18/2023 1 1 Reason Comments Results Reason Comments Diabetic Eye Exam Type 2 IDDM Specialty Diagnoses / Procedures Referred By Contac t Referred To Contact Ophthalmology Diagnoses Type 2 diabetes, controlled, with neuropathy (HCC) Procedures CONSULT TO OPHTHALMOLOGY OFFICE/OUTPATIENT [facility] 60-74 MINUTES Ignacio Cheatham MD [address] [place] [id number] Referral ID Status Reason Start Date Expiration Date V isits Requested Visits Authorized [id number] Closed PCP Requested Referral 08/11/2022 08/11/2023 1 1 Reason Comments Established Patient Follow Up Pain Swelling Numbness Diabetic Foot Care Diabetic Foot Ulcer Specialty Diagnoses / Procedures Referred By Contac t Referred To Contact Podiatry Diagnoses Neuropathy Type 2 diabetes, controlled, with neuropathy (HCC) Procedures CONSULT TO PODIATRY OFFICE/OUTPATIENT [facility] 60 MINUTES Ignacio Cheatham MD [address] [place] [address] Referral ID Status Reason Start Date Expiration Date V isits Requested Visits Authorized [id number] Closed PCP Requested Referral 03/13/2023 03/12/2024 1 1 Reason Onset Date Comments Requesting apt for pt 06/12/2023 Reason Comments [place] Pulp Screen Operator Reason Comments FYI Reason Comments Post Op [...] (HCC) Procedures CONSULT TO VASCULAR SURGERY OFFICE/OUTPATIENT [facility] 60 MINUTES Tresa Marcum, PLISSE MACHINE OPERATOR HELPER.SALOONKEEPER [address] [place] [address] Referral ID Status Reason Start Date Expiration Date V isits Requested Visits Authorized [id number] Closed PCP Requested Referral 12/11/2023 12/10/2024 1 1 Reason Comments Hospital F/U Reason Comments Medicaid Program Form Reason Comments Dental Problem R lower tooth pain x 3 days increasing, swelling Reason Comments Recheck 3 month follow up Reason Onset Date Comments Refill Request 06/08/2024 Reason Comments New Patient Evaluation Specialty Diagnoses / Procedures Referred By Contac t Referred To Contact Diagnoses CASSIE (obstructive sleep apnea) Procedures CONSULT TO SLEEP MEDICINE - ADULT OFFICE/OUTPATIENT [facility] 60 MINUTES Sha Myrick MD [address] [place] [address] Phone: tel: fax: Referral ID Status Reason Start Date Expiration Date V isits Requested Visits Authorized [id number] Closed PCP Requested Referral 01/12/2024 01/11/2025 1 1 Reason Comments type 2 diabetes Specialty Diagnoses / Procedures Referred By Contac t Referred To Contact Endocrinology Diagnoses Type 2 diabetes, controlled, with neuropathy (HCC) Procedures CONSULT TO ENDOCRINOLOGY OFFICE/OUTPATIENT [facility] 60 MINUTES Tresa Marcum, PLISSE MACHINE OPERATOR HELPER.SALOONKEEPER [address] [place] [address] Phone: tel: fax: Referral ID Status Reason Start Date Expiration Date V isits Requested Visits Authorized [id number] Closed PCP Requested Referral 06/01/2024 06/01/2025 1 1 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 Comments 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 Prior Auth Reason Comments Diabetic Eye Exam Type 2 Specialty Diagnoses / Procedures Referred By Contac t Referred To Contact CT IMAGING Diagnoses Lung nodules Procedures CT CHEST WO IVCON DIAGNOSTIC COMPUTED TOMOGRAPHY THORAX W/O CNTRST Tresa Marcum, PATRICE.SALOONKEEPER [address] [place] [address] Phone: tel: fax: [place] [address] Referral ID Status Reason Start Date Expiration Date V isits Requested Visits Authorized [id number] Closed Auto-Generate d Referral 06/01/2024 07/01/2025 1 [...] Reason Onset Date Comments Refill Request 09/26/2024 Reason Comments Home Care Reason Comments Home Care Confirmation Call Reason Comments Home Care SOC delay request / APPROVAL NEEDED Reason Comments Home Care MD to Follow Reason Comments 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 [place] [address] PCP - General Family Practice 04/16/17 Vicki [facility] [address] [facility] [place] [address] Pharmacist Pharmacy 05/17/20 Caul Puller Relationship Specialty Start Date End Date Ignacio Cheatham MD [address] [facility] [place] [address] PCP - General Family Practice 04/16/17 [facility] [address] [facility] [place] [address] Pharmacist Pharmacy 05/17/20 Caul Puller Relationship Specialty Start Date End Date Ignacio Cheatham MD [address] [facility] [place] [address] PCP - General Family Practice 04/16/17 Vicki WhiteSS[facility] [address] [facility] [place] [address] Pharmacist Pharmacy 05/17/20 Caul Puller Relationship Specialty Start Date End Date Ignacio Cheatham MD [address] [place] [address] PCP - General Family Practice 04/16/17 Vicki White, formerly [facility] [address] [facility] [place] [address] Pharmacist Pharmacy 05/17/20 Caul Puller Relationship Specialty Start Date End Date Ignacio Cheatham MD [address] [facility] [place] [address] PCP - General Family Practice 04/16/17 Vicki White, formerly [facility] [address] [place] [address] Pharmacist Pharmacy 05/17/20 Caul Puller Relationship Specialty Start Date End Date Ignacio Cheatham MD [address] [facility] [place] [address] PCP - General Family Practice 04/16/17 Vicki [facility]SS[facility] [address] [place] [address] Pharmacist Pharmacy 05/17/20 Caul Puller Relationship Specialty Start Date End Date Ignacio Cheatham MD [address] [facility] [place] [address] PCP - General Family Practice 04/16/17 Kaiserivanna Nicolasjodi, formerly [facility] [address] [place] [address] Pharmacist Pharmacy 05/17/20 Caul Puller Relationship Specialty Start Date End Date Ignacio Cheatham MD [address] [facility] [place] [address] PCP - General Family Practice 04/16/17 Vicki White, formerly [facility] [address] [place] [address] Pharmacist Pharmacy 05/17/20 Caul Puller Relationship Specialty Start Date End Date Ignacio Cheatham MD [address] [facility] [place] [address] PCP - General Family Practice 04/16/17 [facility] [address] [facility] [place] [address] Pharmacist Pharmacy 05/17/20 Caul Puller Relationship Specialty Start Date End Date Ignacio Cheatham MD [address] [facility] [place] [address] PCP - General Family Practice 04/16/17 [facility] [address] [place] [address] Pharmacist Pharmacy 05/17/20 Caul Puller Relationship Specialty Start Date End Date Ignacio Cheatham MD [address] [facility] [place] [address] PCP - General Family Practice 04/16/17 Vicki WhiteSS[facility] [address] [place] [address] Pharmacist Pharmacy 05/17/20 Caul Puller Relationship Specialty Start Date End Date Ignacio Cheatham MD [address] [facility] [place] [address] PCP - General Family Practice 04/16/17 [facility] [address] [facility] [place] [address] Pharmacist Pharmacy 05/17/20 Caul Puller Relationship Specialty Start Date End Date Ignacio Cheatham MD [address] [facility] [place] [address] PCP - General Family Practice 04/16/17 [facility] [address] [place] [address] Pharmacist Pharmacy 05/17/20 Caul Puller Relationship Specialty Start Date End Date Ignacio Cheatham MD [address] [facility] [place] [address] PCP - General Family Practice 04/16/17 Vicki WhiteSS[facility] [address] [facility] [place] [address] Pharmacist Pharmacy 05/17/20 Caul Puller Relationship Specialty Start Date End Date Ignacio Cheatham MD [address] [facility] [place] [address] PCP - General Family Practice 04/16/17 Vicki WhiteSS[facility] [address] [facility] [place] [address] Pharmacist Pharmacy 05/17/20 Caul Puller Relationship Specialty Start Date End Date Ignacio Cheatham MD [address] [facility] [place] [address] PCP - General Family Practice 04/16/17 Vicki WhiteSS[facility] [address] [facility] [place] [address] Pharmacist Pharmacy 05/17/20 Caul Puller Relationship Specialty Start Date End Date Ignacio Cheatham MD [address] [facility] [place] [address] PCP - General Family Practice 04/16/17 Vicki WhiteSS[facility] [address] [facility] [place] [address] Pharmacist Pharmacy 05/17/20 Caul Puller Relationship Specialty Start Date End Date Ignacio Cheatham MD [address] [facility] [place] [address] PCP - General Family Practice 04/16/17 KaiserVicki, formerly [facility] [address] [facility] [place] [address] Pharmacist Pharmacy 05/17/20 Caul Puller Relationship Specialty Start Date End Date Ignacio Cheatham MD [address] [place] [address] PCP - General Family Practice 04/16/17 Vicki WhiteSS[facility] [address] [place] [address] Pharmacist Pharmacy 05/17/20 Caul Puller Relationship Specialty Start Date End Date Ignacio Cheatham MD [address] [facility] [place] [address] PCP - General Family Practice 04/16/17 Vicki WhiteSS[facility] [address] [place] [address] Pharmacist Pharmacy 05/17/20 Caul Puller Relationship Specialty Start Date End Date Ignacio Cheatham MD [address] [facility] [place] [address] PCP - General Family Practice 04/16/17 Vicki WhiteSS[facility] [address] [place] [address] Pharmacist Pharmacy 05/17/20 Caul Puller Relationship Specialty Start Date End Date Ignacio Cheatham MD [address] [facility] [place] [address] PCP - General Family Practice 04/16/17 Vicki White, formerly [facility] [address] [place] [address] Pharmacist Pharmacy 05/17/20 Caul Puller Relationship Specialty Start Date End Date Ignacio Cheatham MD [address] [facility] [place] [address] PCP - General Family Practice 04/16/17 Vicki White, formerly [facility] [address] [place] [address] Pharmacist Pharmacy 05/17/20 Caul Puller Relationship Specialty Start Date End Date Ignacio Cheatham MD [address] [facility] [place] [address] PCP - General Family Practice 04/16/17 Vicki White, formerly [facility] [address] [facility] [place] [address] Pharmacist Pharmacy 05/17/20 Caul Puller Relationship Specialty Start Date End Date Ignacio Cheatham MD [address] [facility] [place] [address] PCP - General Family Medicine 04/16/17 Vicki White, formerly [facility] [address] [facility] [place] [address] Pharmacist Pharmacy 05/17/20 Caul Puller Relationship Specialty Start Date End Date Ignacio Cheatham MD [address] [facility] [place] [address] PCP - General Family Medicine 04/16/17 Vicki White, formerly [facility] [address] [facility] [place] [address] Pharmacist Pharmacy 05/17/20 Caul Puller Relationship Specialty Start Date End Date Ignacio Cheatham MD [address] [facility] [place] [address] PCP - General Family Medicine 04/16/17 Vicki White, formerly [facility] [address] [facility] [place] [address] Pharmacist Pharmacy 05/17/20 Caul Puller Relationship Specialty Start Date End Date Ignacio Cheatham MD [address] [facility] [place] [address] PCP - General Family Medicine 04/16/17 Vicki White, formerly [facility] [address] [facility] [place] [address] Pharmacist Pharmacy 05/17/20 Caul Puller Relationship Specialty Start Date End Date Ignacio Cheatham MD [address] [facility] [place] [address] PCP - General Family Medicine 04/16/17 Vicki WhiteSS[facility] [address] [facility] [place] [address] Pharmacist Pharmacy 05/17/20 Caul Puller Relationship Specialty Start Date End Date Ignacio Cheatham MD [address] [facility] [place] [address] PCP - General Family Medicine 04/16/17 Vicki WhiteSS[facility] [address] [facility] [place] [address] Pharmacist Pharmacy 05/17/20 Caul Puller Relationship Specialty Start Date End Date Ignacio Cheatham MD [address] [facility] [place] [address] PCP - General Family Medicine 04/16/17 Vicki WhiteSS[facility] [address] [facility] [place] [address] Pharmacist Pharmacy 05/17/20 Caul Puller Relationship Specialty Start Date End Date Ignacio Cheatham MD [address] [facility] [place] [address] PCP - General Family Medicine 04/16/17 [facility] [address] [facility] [place] [address] Pharmacist Pharmacy 05/17/20 Kaylin Carranza (Rn), RN Specialty Beam Worker Nephrology 12/06/21 Caul Puller Relationship Specialty Start Date End Date Ignacio Cheathma MD [address] [facility] [place] [address] PCP - General Family Medicine 04/16/17 Vicki WhiteSS[facility] [address] [facility] [place] [address] Pharmacist Pharmacy 05/17/20 Kaylin Carranza (Rn), RN Specialty Beam Worker Nephrology 12/06/21 Caul Puller Relationship Specialty Start Date End Date Ignacio Cheatham MD [address] [facility] [place] [address] PCP - General Family Medicine 04/16/17 Vicki [facility]SS[facility] [address] [facility] [place] [address] Pharmacist Pharmacy 05/17/20 Kaylin Carranza (Rn), RN Specialty Beam Worker Nephrology 12/06/21 Caul Puller Relationship Specialty Start Date End Date Ignacio Cheatham MD [address] [place] [address] PCP - General Family Medicine 04/16/17 Vicki WhiteSS[facility] [address] [facility] [place] [address] Pharmacist Pharmacy 05/17/20 Kaylin Carranza (Rn), RN Specialty Beam Worker Nephrology 12/06/21 Caul Puller Relationship Specialty Start Date End Date Ignacio Cheatham MD [address] [place] [address] PCP - General Family Medicine 04/16/17 Vicki WhiteSS[facility] [address] [facility] [place] [address] Pharmacist Pharmacy 05/17/20 Kaylin Carranza (Rn), RN Specialty Beam Worker Nephrology 12/06/21 Caul Puller Relationship Specialty Start Date End Date Ignacio Cheatham MD [address] [place] [address] PCP - General Family Medicine 04/16/17 Vicki WhiteSS[facility] [address] [place] [address] Pharmacist Pharmacy 05/17/20 Kaylin Carranza (Rn), RN Specialty Beam Worker Nephrology 12/06/21 Caul Puller Relationship Specialty Start Date End Date Ignacio Cheatham MD [address] [place] [address] PCP - General Family Medicine 04/16/17 Vicki WhiteSS[facility] [address] [place] [address] Pharmacist Pharmacy 05/17/20 Kaylin Carranza (Rn), RN Specialty Beam Worker Nephrology 12/06/21 Caul Puller Relationship Specialty Start Date End Date Ignacio Cheatham MD [address] [place] [address] PCP - General Family Medicine 04/16/17 Vicki [facility]SS[facility] [address] [place] [address] Pharmacist Pharmacy 05/17/20 Kaylin Carranza (Rn), RN Specialty Beam Worker Nephrology 12/06/21 Caul Puller Relationship Specialty Start Date End Date Ignacio Cheatham MD [address] [place] [address] PCP - General Family Medicine 04/16/17 Vicki WhiteSS[facility] [address] [place] [address] Pharmacist Pharmacy 05/17/20 Kaylin Carranza (Rn), RN Specialty Beam Worker Nephrology 12/06/21 Caul Puller Relationship Specialty Start Date End Date Ignacio Cheatham MD [address] [place] [address] PCP - General Family Medicine 04/16/17 Vicki [facility] [address] [place] [address] Pharmacist Pharmacy 05/17/20 Kaylin Carranza (Rn), RN Specialty Beam Worker Nephrology 12/06/21 Caul Puller Relationship Specialty Start Date End Date Ignacio Cheatham MD [address] [place] [address] PCP - General Family Medicine 04/16/17 Vicki White, formerly [facility] [address] [place] [address] Pharmacist Pharmacy 05/17/20 Kaylin Carranza (Rn), RN Specialty Beam Worker Nephrology 12/06/21 Caul Puller Relationship Specialty Start Date End Date Ignacio Cheatham MD [address] [place] [address] PCP - General Family Medicine 04/16/17 Vicki [facility]SS[facility] [address] [place] [address] Pharmacist Pharmacy 05/17/20 Kaylin Carranza (Rn), RN Specialty Beam Worker Nephrology 12/06/21 Caul Puller Relationship Specialty Start Date End Date Ignacio Cheatham MD [address] [place] [address] PCP - General Family Medicine 04/16/17 Vicki White, [facility] [address] [place] [address] Pharmacist Pharmacy 05/17/20 Kaylin Carranza (Rn), RN Specialty Beam Worker Nephrology 12/06/21 Caul Puller Relationship Specialty Start Date End Date Ignacio Cheatham MD [address] [place] [address] PCP - General Family Medicine 04/16/17 Vicki White, [facility] [address] [place] [address] Pharmacist Pharmacy 05/17/20 Kaylin Carranza, RN Specialty Beam Worker Nephrology 12/06/21 Caul Puller Relationship Specialty Start Date End Date Ignacio Cheatham MD [address] [facility] [place] [address] PCP - General Family Medicine 04/16/17 Vicki [facility] [address] [facility] [place] [address] Pharmacist Pharmacy 05/17/20 Kaylin Carranza, DALE Specialty Beam Worker Nephrology 12/06/21 Caul Puller Relationship Specialty Start Date End Date Ignacio Cheatham MD [address] [facility] [place] [address] PCP - General Family Medicine 04/16/17 Vicki [facility] [address] [facility] [place] [address] Pharmacist Pharmacy 05/17/20 Kaylin Carranza RN Specialty Beam Worker Nephrology 12/06/21 Caul Puller Relationship Specialty Start Date End Date Ignacio Cheatham MD [address] [facility] [place] [address] PCP - General Family Medicine 04/16/17 Vicki WhiteSS[facility] [address] [facility] [place] [address] Pharmacist Pharmacy 05/17/20 Kaylin Carranza RN Specialty Beam Worker Nephrology 12/06/21 Caul Puller Relationship Specialty Start Date End Date Ignacio Cheatham MD [address] [facility] [place] [address] PCP - General Family Medicine 04/16/17 Vicki White, formerly [facility] [address] [facility] [place] [address] Pharmacist Pharmacy 05/17/20 Kaylin Carranza RN Specialty Beam Worker Nephrology 12/06/21 Caul Puller Relationship Specialty Start Date End Date Ignacio Cheatham MD [address] [facility] [place] [address] PCP - General Family Medicine 04/16/17 Vicki [facility] [address] [facility] [place] [address] Pharmacist Pharmacy 05/17/20 Kaylin Carranza RN Specialty Beam Worker Nephrology 12/06/21 Caul Puller Relationship Specialty Start Date End Date Ignacio Cheatham MD [address] [facility] [place] [address] PCP - General Family Medicine 04/16/17 Vicki WhiteSS[facility] [address] [facility] [place] [address] Pharmacist Pharmacy 05/17/20 Kaylin Carranza RN Specialty Beam Worker Nephrology 12/06/21 Caul Puller Relationship Specialty Start Date End Date Ignacio Cheatham MD [address] [facility] [place] [address] PCP - General Family Medicine 04/16/17 Vicki [facility] [address] [facility] [place] [address] Pharmacist Pharmacy 05/17/20 Kaylin Carranza RN Specialty Beam Worker Nephrology 12/06/21 Caul Puller Relationship Specialty Start Date End Date Ignacio Cheatham MD [address] [facility] [place] [address] PCP - General Family Medicine 04/16/17 Vicki [facility]SS[facility] [address] [facility] [place] [address] Pharmacist Pharmacy 05/17/20 Kaylin Carranza, DALE Specialty Beam Worker Nephrology 12/06/21 Caul Puller Relationship Specialty Start Date End Date Ignacio Cheatham MD [address] [facility] [place] [address] PCP - General Family Medicine 04/16/17 Vicki White, formerly [facility] [address] [facility] [place] [address] Pharmacist Pharmacy 05/17/20 Kaylin Carranza, RN Specialty Beam Worker Nephrology 12/06/21 Caul Puller Relationship Specialty Start Date End Date Ignacio Cheatham MD [address] [place] [address] PCP - General Family Medicine 04/16/17 [facility] [address] [place] [address] Pharmacist Pharmacy 05/17/20 Kaylin Carranza, RN Specialty Beam Worker Nephrology 12/06/21 Caul Puller Relationship Specialty Start Date End Date Ignacio Cheatham MD [address] [place] [address] PCP - General Family Medicine 04/16/17 [facility] [address] [place] [address] Pharmacist Pharmacy 05/17/20 Kaylin Carranza, DALE Specialty Beam Worker Nephrology 12/06/21 Caul Puller Relationship Specialty Start Date End Date Ignacio Cheatham MD [address] [place] [address] PCP - General Family Medicine 04/16/17 [facility], [facility] [address] [place] [address] Pharmacist Pharmacy 05/17/20 Kaylin Carranza, DALE Specialty Beam Worker Nephrology 12/06/21 Caul Puller Relationship Specialty Start Date End Date Ignacio Cheatham MD [address] [place] [address] PCP - General Family Medicine 04/16/17 [facility], Vicki, formerly [facility] [address] [facility] [place] [address] Pharmacist Pharmacy 05/17/20 Kaylin Carranza, RN Specialty Beam Worker Nephrology 12/06/21 Caul Puller Relationship Specialty Start Date End Date Ignacio Cheatham MD [address] [facility] [place] [address] PCP - General Family Medicine 04/16/17 Vicki White, formerly [facility] [address] [facility] [place] [address] Pharmacist Pharmacy 05/17/20 Kaylin Carranza, RN Specialty Beam Worker Nephrology 12/06/21 Caul Puller Relationship Specialty Start Date End Date Ignacio Cheatham MD [address] [facility] [place] [address] PCP - General Family Medicine 04/16/17 [facility] [address] [facility] [place] [address] Pharmacist Pharmacy 05/17/20 Kaylin Carranza, DALE Specialty Beam Worker Nephrology 12/06/21 Caul Puller Relationship Specialty Start Date End Date Ignacio Cheatham MD [address] [facility] [place] [address] PCP - General Family Medicine 04/16/17 [facility], [facility] [address] [facility] [place] [address] Pharmacist Pharmacy 05/17/20 Kaylin Carranza, DALE Specialty Beam Worker Nephrology 12/06/21 Caul Puller Relationship Specialty Start Date End Date Ignacio Cheatham MD [address] [facility] [place] [address] PCP - General Family Medicine 04/16/17 Vicki White, formerly [facility] [address] [facility] [place] [address] Pharmacist Pharmacy 05/17/20 Kaylin Carranza, RN Specialty Beam Worker Nephrology 12/06/21 Lauren Bello formerly [facility]itional [facility] Pharmacist Pharmacy 08/05/22 08/06/22 Chrissy Nieto, DALE [address] [place], [place] [id number] Primary Care Clerk Typist 08/05/22 09/02/22 Caul Puller Relationship Specialty Start Date End Date Ignacio Cheatham MD [address] [place] [address] PCP - General Family Medicine 04/16/17 [facility] [address] [place] [address] Pharmacist Pharmacy 05/17/20 Kaylin Carranza, DALE Specialty Beam Worker Nephrology 12/06/21 [facility] Pharmacist Pharmacy 08/05/22 08/06/22 Chrissy Nieto, DALE [address] [place] [address] Primary Care Clerk Typist 08/05/22 09/02/22 Caul Puller Relationship Specialty Start Date End Date Ignacio Cheatham MD [address] [place] [address] PCP - General Family Medicine 04/16/17 [facility] [address] [place] [address] Pharmacist Pharmacy 05/17/20 Kaylin Carranza, DALE Specialty Beam Worker Nephrology 12/06/21 Lauren Bello [facility] Transitional [facility] Pharmacist Pharmacy 08/05/22 08/06/22 Chrissy Nieto, DALE [address] [place], [place] [id number] Primary Care Clerk Typist 08/05/22 09/02/22 Caul Puller Relationship Specialty Start Date End Date Ignacio Cheatham MD [address] [place] [address] PCP - General Family Medicine 04/16/17 [facility] [address] [facility] [place] [address] Pharmacist Pharmacy 05/17/20 Kaylin Carranza, RN Specialty Beam Worker Nephrology 12/06/21 [facility] Pharmacist Pharmacy 08/05/22 08/06/22 Chrissy Nieto, RN [address] [place] [address] Primary Care Clerk Typist 08/05/22 09/02/22 Caul Puller Relationship Specialty Start Date End Date Ignacio Cheatham MD [address] [place] [address] PCP - General Family Medicine 04/16/17 [facility] [address] [place] [address] Pharmacist Pharmacy 05/17/20 Kaylin Carranza, DALE Specialty Beam Worker Nephrology 12/06/21 Chrissy Nieto, RN [address] [place] [address] Primary Care Clerk Typist 08/05/22 09/02/22 Caul Puller Relationship Specialty Start Date End Date Ignacio Cheatham MD [address] [place] [address] PCP - General Family Medicine 04/16/17 [facility] [address] [place] [address] Pharmacist Pharmacy 05/17/20 Kaylin Carranza, DALE Specialty Beam Worker Nephrology 12/06/21 Chrissy Nieto, RN [address] [place], [place] [id number] Primary Care Clerk Typist 08/05/22 09/02/22 Caul Puller Relationship Specialty Start Date End Date Ignacio Cheatham MD [address] [place] [address] PCP - General Family Medicine 04/16/17 [facility] [address] [place] [address] Pharmacist Pharmacy 05/17/20 Kaylin Carranza, RN Specialty Beam Worker Nephrology 12/06/21 Chrissy Nieto, RN [address] [place] [address] Primary Care Clerk Typist 08/05/22 09/02/22 Caul Puller Relationship Specialty Start Date End Date Ignacio Cheatham MD [address] [place] [address] PCP - General Family Medicine 04/16/17 [facility] [address] [place] [address] Pharmacist Pharmacy 05/17/20 Kaylin Carranza, DAEL Specialty Beam Worker Nephrology 12/06/21 Chrissy Nieto, RN [address] [place] [address] Primary Care Clerk Typist 08/05/22 09/02/22 Caul Puller Relationship Specialty Start Date End Date Ignacio Cheatham MD [address] [place] [address] PCP - General Family Medicine 04/16/17 [facility], [facility] [address] [place] [address] Pharmacist Pharmacy 05/17/20 Kaylin Carranza, DALE Specialty Beam Worker Nephrology 12/06/21 Chrissy Nieto, RN [address] [place], [place] [id number] Primary Care Clerk Typist 08/05/22 09/02/22 Caul Puller Relationship Specialty Start Date End Date Ignacio Cheatham MD [address] [place] [address] PCP - General Family Medicine 04/16/17 Vicki White, formerly [facility] [address] [place] [address] Pharmacist Pharmacy 05/17/20 Kaylin Carranza, RN Specialty Beam Worker Nephrology 12/06/21 Team Status: Active Member Role Status Dates Dr. Ignacio Cheatham MD Family Provider Active Dr. Ignacio Cheatham MD Primary Care Provider Active Team Status: Inactive Member Role Status Dates Dr. Ignacio Cheatham MD Primary Care Provider Active Dr. Quentin Kim DO Emergency Provider Active Caul Puller Relationship Specialty Start Date End Date Ignacio Cheatham MD [address] [place] [address] PCP - General Family Medicine 04/16/17 [facility] [address] [place] [address] Pharmacist Pharmacy 05/17/20 Kaylin Carranza, DALE Specialty Beam Worker Nephrology 12/06/21 Caul Puller Relationship Specialty Start Date End Date Ignacio Cheatham MD [address] [place] [address] PCP - General Family Medicine 04/16/17 Vicki White, formerly [facility] [address] [place] [address] Pharmacist Pharmacy 05/17/20 Kaylin Carranza, DALE Specialty Beam Worker Nephrology 12/06/21 Caul Puller Relationship Specialty Start Date End Date Ignacio Cheatham MD [address] [place] [address] PCP - General Family Medicine 04/16/17 Vicki White, formerly [facility] [address] [place] [address] Pharmacist Pharmacy 05/17/20 Kaylin Carranza, RN Specialty Beam Worker Nephrology 12/06/21 Caul Puller Relationship Specialty Start Date End Date Ignacio Cheatham MD [address] [place] [address] PCP - General Family Medicine 04/16/17 [facility] [address] [place] [address] Pharmacist Pharmacy 05/17/20 Kaylin Carranza, DALE Specialty Beam Worker Nephrology 12/06/21 Caul Puller Relationship Specialty Start Date End Date Ignacio Cheatham MD [address] [place] [address] PCP - General Family Medicine 04/16/17 [facility] [address] [place] [address] Pharmacist Pharmacy 05/17/20 Kaylin Carranza, RN Specialty Beam Worker Nephrology 12/06/21 Team Status: Active Member Role Status Dates Dr. Ignacio Cheatham MD Primary Care Provider Active Dr. Minh Arroyo , DO Emergency Provider Active Dr. Lizzy Bragg MD Attending Provider Active Team Status: Active Member Role Status Dates Dr. Ignacio Cheatham MD Primary Care Provider Active Dr. Minh Arroyo , DO Emergency Provider Active Dr. Lizzy Bragg MD Admit Provider, Other Provider Active Dr. Sylvester Ortiz DO Attending Provider, Other Provid er Active Team Status: Inactive Member Role Status Dates Dr. Ignacio Cheatham MD Primary Care Provider Active Dr. Minh Arroyo DO Emergency Provider Active Dr. Lizzy Bragg MD Admit Provider, Other Provider Active Dr. Sylvester Ortiz , DO Attending Provider Active Team Status: Inactive Member Role Status Dates Dr. Ignacio Cheatham MD Primary Care Provider Active Dr. Quentin Kim DO Attending Provider, Emergency Provide r Active Caul Puller Relationship Specialty Start Date End Date Ignacio Cheatham MD [address] [facility] [place] [address] PCP - General Family Medicine 04/16/17 Vicki White, formerly [facility] [address] [facility] [place] [address] Pharmacist Pharmacy 05/17/20 Caul Puller Relationship Specialty Start Date End Date Ignacio Cheatham MD [address] [facility] [place] [address] PCP - General Family Medicine 04/16/17 Vicki White, formerly [facility] [address] [facility] [place] [address] Pharmacist Pharmacy 05/17/20 Caul Puller Relationship Specialty Start Date End Date Ignacio Cheatham MD [address] [place] [address] PCP - General Family Medicine 04/16/17 Vicki White, formerly [facility] [address] [facility] [place] [address] Pharmacist Pharmacy 05/17/20 Caul Puller Relationship Specialty Start Date End Date Ignacio Chaetham MD [address] [facility] [place] [address] PCP - General Family Medicine 04/16/17 Vicki White, formerly [facility] [address] [facility] [place] [address] Pharmacist Pharmacy 05/17/20 Caul Puller Relationship Specialty Start Date End Date Ignacio Cheatham MD [address] [place] [address] PCP - General Family Medicine 04/16/17 Vicki White, formerly [facility] [address] [place] [address] Pharmacist Pharmacy 05/17/20 Caul Puller Relationship Specialty Start Date End Date Ignacio Cheatham MD [address] [place] [address] PCP - General Family Medicine 04/16/17 Vicki White, formerly [facility] [address] [facility] [place] [address] Pharmacist Pharmacy 05/17/20 Caul Puller Relationship Specialty Start Date End Date Ignacio Cheatham MD [address] [facility] [place] [address] PCP - General Family Medicine 04/16/17 [facility] [address] [facility] [place] [address] Pharmacist Pharmacy 05/17/20 Team Status: Active Member [...] Dr. Audra Ahuja MD Emergency Provider Active Caul Puller Relationship Specialty Start Date End Date Ignacio Cheatham MD [address] [facility] [place] [address] PCP - General Family Medicine 04/16/17 Vicki White, formerly [facility] [address] [place] [address] Pharmacist Pharmacy 05/17/20 Caul Puller Relationship Specialty Start Date End Date Ignacio Cheatham MD [address] [facility] [place] [address] PCP - General Family Medicine 04/16/17 [facility] [address] [place] [address] Pharmacist Pharmacy 05/17/20 Team Status: Inactive Member [...] Dr. Sofía Hill MD Attending Provider Active Caul Puller Relationship Specialty Start Date End Date Ignacio Cheatham MD [address] [place] [address] PCP - General Family Medicine 04/16/17 [facility] [address] [place] [address] Pharmacist Pharmacy 05/17/20 Caul Puller Relationship Specialty Start Date End Date Ignacio Cheatham MD [address] [facility] [place] [address] PCP - General Family Medicine 04/16/17 [facility] [address] [facility] [place] [address] Pharmacist Pharmacy 05/17/20 Caul Puller Relationship Specialty Start Date End Date Ignacio Cheatham MD [address] [place] [address] PCP - General Family Medicine 04/16/17 Vicki White, formerly [facility] [address] [place] [address] Pharmacist Pharmacy 05/17/20 Caul Puller Relationship Specialty Start Date End Date Ignacio Cheatham MD [address] [place] [address] PCP - General Family Medicine 04/16/17 Kaiser[facility]icki goncalves, formerly [facility] [address] [place] [address] Pharmacist Pharmacy 05/17/20 Caul Puller Relationship Specialty Start Date End Date Ignacio Cheatham MD [address] [place] [address] PCP - General Family Medicine 04/16/17 Kaiser[facility]anna Nicolasjodi, formerly [facility] [address] [place] [address] Pharmacist Pharmacy 05/17/20 Caul Puller Relationship Specialty Start Date End Date Ignacio Cheatham MD [address] [place] [address] PCP - General Family Medicine 04/16/17 Kaiser[facility]icki goncalves, formerly [facility] [address] [place] [address] Pharmacist Pharmacy 05/17/20 Caul Puller Relationship Specialty Start Date End Date Ignacio Cheatham MD [address] [place] [address] PCP - General Family Medicine 04/16/17 [facility]anna Nicolasjodi, formerly [facility] [address] [place] [address] Pharmacist Pharmacy 05/17/20 Caul Puller Relationship Specialty Start Date End Date Ignacio Cheatham MD [address] [place] [address] PCP - General Family Medicine 04/16/17 Vicki White, formerly [facility] [address] [place] [address] Pharmacist Pharmacy 05/17/20 Caul Puller Relationship Specialty Start Date End Date Ignacio Cheatham MD [address] [place] [address] PCP - General Family Medicine 04/16/17 [facility] [address] [place] [address] Pharmacist Pharmacy 05/17/20 Caul Puller Relationship Specialty Start Date End Date Ignacio Cheatham MD [address] [place] [address] PCP - General Family Medicine 04/16/17 [facility] [address] [place] [address] Pharmacist Pharmacy 05/17/20 Caul Puller Relationship Specialty Start Date End Date Ignacio Cheatham MD [address] [place] [address] PCP - General Family Medicine 04/16/17 Vicki White, formerly [facility] [address] [place] [address] Pharmacist Pharmacy 05/17/20 Caul Puller Relationship Specialty Start Date End Date Ignacio Cheatham MD [address] [place] [address] PCP - General Family Medicine 04/16/17 [facility] [address] [place] [address] Pharmacist Pharmacy 05/17/20 Kaylin Carranza, DALE Specialty Beam Worker Nephrology 12/06/2109/15 Chrissy Nieto, DALE [address] [place] [address] Primary Care Clerk Typist 08/05/22 09/02/22 Caul Puller Relationship Specialty Start Date End Date Ignacio Cheatham MD [address] [place] [address] PCP - General Family Medicine 04/16/17 [facility] [address] [place] [address] Pharmacist Pharmacy 05/17/20 Caul Puller Relationship Specialty Start Date End Date Ignacio Cheatham MD [address] [place] [address] PCP - General Family Medicine 04/16/17 [facility] [address] [place] [address] Pharmacist Pharmacy 05/17/20 Kalyin Carranza RN Specialty Beam Worker Nephrology 12/06/2109/15 Caul Puller Relationship Specialty Start Date End Date Ignacio Cheatham MD [address] [place] [address] PCP - General Family Medicine 04/16/17 [facility] [address] [place] [address] Pharmacist Pharmacy 05/17/20 Kaylin Carranza RN Specialty Beam Worker Nephrology 12/06/2109/15 Caul Puller Relationship Specialty Start Date End Date Ignacio Cheatham MD [address] [place] [address] PCP - General Family Medicine 04/16/17 [facility] [address] [place] [address] Pharmacist Pharmacy 05/17/20 Kaylin Carranza, DALE Specialty Beam Worker Nephrology 12/06/2109/15 Chrissy Nieto, DALE [address] [place] [id number] Primary Care Clerk Typist 08/05/22 09/02/22 Caul Puller Relationship Specialty Start Date End Date Ignacio Cheatham MD [address] [place] [address] PCP - General Family Medicine 04/16/17 [facility] [address] [place] [address] Pharmacist Pharmacy 05/17/20 Team Status: Active Member Role Status Dates Dr. Ignacio Cheatham MD Primary Care Provider Active Dr. Sylvester John MD Attending Provider Active Dr. Audra Ahuja MD Referring Provider Active Team Status: Inactive Member Role Status Dates Dr. Ignacio Cheatham MD Primary Care Provider Active Dr. Dakota Cobos MD Emergency Provider Active Team Status: Active Member Role Status Dates Dr. Ignacio Chaetham MD Primary Care Provider Active Dr. Raul Larkin MD Attending Provider Active Caul Puller Relationship Specialty Start Date End Date Ignacio Cheatham MD [address] [place] [address] PCP - General Family Medicine 04/16/17 [facility] [address] [place] [address] Pharmacist Pharmacy 05/17/20 Team Status: Active Member [...] MD Admit Provider, Attending Provid er Active Caul Puller Relationship Specialty Start Date End Date Ignacio Cheatham MD [address] [facility] [place] [address] PCP - General Family Medicine 04/16/17 [facility] [address] [facility] [place] [address] Pharmacist Pharmacy 05/17/20 Caul Puller Relationship Specialty Start Date End Date Ignacio Cheatham MD [address] [facility] [place] [address] PCP - General Family Medicine 04/16/17 [facility] [address] [facility] [place] [address] Pharmacist Pharmacy 05/17/20 Caul Puller Relationship Specialty Start Date End Date Ignacio Cheatham MD [address] [facility] [place] [address] PCP - General Family Medicine 04/16/17 [facility] [address] [facility] [place] [address] Pharmacist Pharmacy 05/17/20 Team Status: Active Member [...] Dr. Johnathon Robertson MD Emergency Provider Active Caul Puller Relationship Specialty Start Date End Date Ignacio Cheatham MD [address] [place] [address] PCP - General Family Medicine 04/16/17 [facility] [address] [facility] [place] [address] Pharmacist Pharmacy 05/17/20 Caul Puller Relationship Specialty Start Date End Date Ignacio Cheatham MD [address] [facility] [place] [address] PCP - General Family Medicine 04/16/17 Kaiser[facility]olas, [facility] [address] [facility] [place] [address] Pharmacist Pharmacy 05/17/20 Caul Puller Relationship Specialty Start Date End Date Ignacio Cheatham MD [address] [facility] [place] [address] PCP - General Family Medicine 04/16/17 [facility] [address] [place] [address] Pharmacist Pharmacy 05/17/20 Caul Puller Relationship Specialty Start Date End Date Ignacio Cheatham MD [address] [place] [address] PCP - General Family Medicine 04/16/17 [facility] [address] [place] [address] Pharmacist Pharmacy 05/17/20 Caul Puller Relationship Specialty Start Date End Date Ignacio Cheatham MD [address] [place] [address] PCP - General Family Medicine 04/16/17 [facility] [address] [place], [place] [address] Pharmacist Pharmacy 05/17/20 Caul Puller Relationship Specialty Start Date End Date Ignacio Cheatham MD [address] [place], [place] [address] PCP - General Family Medicine 04/16/17 [facility] [address] [place], [place] [address] Pharmacist Pharmacy 05/17/20 Caul Puller Relationship Specialty Start Date End Date Ignacio Cheatham MD [address] [place], [place] [address]386[address] PCP - General Family Medicine 04/16/17 [facility] [address] [place], [place] [address] Pharmacist Pharmacy 05/17/20 Team Status: Inactive Member Role Status Dates Dr. Ignacio Cheatham MD Primary Care Provider Active Dr. Johnathon Robertson MD Attending Provider, Emergency Pro vider Active Team Status: Inactive Member Role Status Dates Dr. Ignacio Cheatham MD Primary Care Provider Active Dr. Neymar Toledo DO Emergency Provider Active Caul Puller Relationship Specialty Start Date End Date Ignacio Cheatham MD [address] [place], [place] [address] PCP - General Family Medicine 04/16/17 Caul Puller Relationship Specialty Start Date End Date Juliano Abdullahi [address] [facility] [place] [id number] PCP - General 08/31/14 Caul Puller Relationship Specialty Start Date End Date Ignacio Cheatham MD [address] [place] [address] PCP - General Family Medicine 04/16/17 Caul Puller Relationship Specialty Start Date End Date Ignacio Cheatham MD [address] [place], [place] [address] PCP - General Family Medicine 04/16/17 Caul Puller Relationship Specialty Start Date End Date Ignacio Cheatham MD [address] [place], [place] [address] PCP - General Family Medicine 04/16/17 Team Status: Inactive Member Role Status Dates Dr. Ignacio Cheatham MD Primary Care Provider Active Dr. Neymar Toledo DO Attending Provider, Emergency P rovider Active [...] MD Primary Care Provider Active Cathy Dumont PRODUCT TECHNOLOGY SCIENTIST, PRODUCT TECHNOLOGY SCIENTIST-C Attending Provider, Referring Pro vider Active Caul Puller Relationship Specialty Start Date End Date Ignacio Cheatham MD [address] [place] [address] PCP - General Family Medicine 04/16/17 Caul Puller Relationship Specialty Start Date End Date Ignacio Cheatham MD [address] [place] [address] PCP - General Family Medicine 04/16/17 Caul Puller Relationship Specialty Start Date End Date Ignacio Cheatham MD [address] [facility], [place] [address] PCP - General Family Medicine 04/16/17 Caul Puller Relationship Specialty Start Date End Date Ignacio Cheatham MD [address] [facility], [place] [address] PCP - General Family Medicine 04/16/17 Caul Puller Relationship Specialty Start Date End Date Ignacio Cheatham MD [address] [facility], [place] [address] PCP - General Family Medicine 04/16/17 [facility] [address] [facility] [place] [address] Pharmacist Pharmacy 05/17/20 05/27/23 Caul Puller Relationship Specialty Start Date End Date Ignacio Cheatham MD [address] [facility] [place] [address] PCP - General Family Medicine 04/16/17 [facility] [address] [facility] [place] [address] Pharmacist Pharmacy 05/17/20 05/27/23 Kaylin Carranza, DALE Specialty Beam Worker Nephrology 12/06/2109/15 Caul Puller Relationship Specialty Start Date End Date Ignacio Cheatham MD [address] [facility] [place] [address] PCP - General Family Medicine 04/16/17 [facility] [address] [facility] [place] [address] Pharmacist Pharmacy 05/17/20 05/27/23 Caul Puller Relationship Specialty Start Date End Date Ignacio Cheatham MD [address] [facility] [place] [address] PCP - General Family Medicine 04/16/17 Caul Puller Relationship Specialty Start Date End Date Ignacio Cheatham MD [address] [facility] [place] [address] PCP - General Family Medicine 04/16/17 Caul Puller Relationship Specialty Start Date End Date Ignacio Cheatham MD [address] [facility] [place] [address] PCP - General Family Medicine 04/16/17 Caul Puller Relationship Specialty Start Date End Date Ignacio Cheatham MD [address] [facility] [place] [address] PCP - General Family Medicine 04/16/17 Caul Puller Relationship Specialty Start Date End Date Ignacio Cheatham MD [address] [facility] [place] [address] PCP - General Family Medicine 04/16/17 Caul Puller Relationship Specialty Start Date End Date Ignacio Cheatham MD [address] [facility] [place] [address] PCP - General Family Medicine 04/16/17 Caul Puller Relationship Specialty Start Date End Date Ignacio Cheatham MD [address] [facility] [place] [address] PCP - General Family Medicine 04/16/17 Caul Puller Relationship Specialty Start Date End Date Ignacio Cheatham MD [address] [facility] [place] [address] PCP - General Family Medicine 04/16/17 Caul Puller Relationship Specialty Start Date End Date Ignacio Cheatham MD [address] [facility] [place] [address] PCP - General Family Medicine 04/16/17 Tresa Marcum APRN.SALOONKEEPER [address] [facility] [place] [address] Sales Branch Manager Family Medicine 02/08/24 Sury Gonzalez APRN.SALOONKEEPER [address] [facility] [place] [address] Sales Branch Manager Family Medicine 02/08/24 Caul Puller Relationship Specialty Start Date End Date Ignacio Cheatham MD [address] [facility] [place] [address] PCP - General Family Medicine 04/16/17 Tresa Marcum APRN.SALOONKEEPER [address] [facility] [place] [address] Sales Branch Manager Family Medicine 02/08/24 Sury Gonzalez APRN.SALOONKEEPER [address] [facility] [place] [address] Sales Branch Manager Family Medicine 02/08/24 Caul Puller Relationship Specialty Start Date End Date Ignacio Cheatham MD [address] [facility] [place] [address] PCP - General Family Medicine 04/16/17 Tresa Marcum APRN.SALOONKEEPER [address] [facility] [place] [address] Sales Branch Manager Family Medicine 02/08/24 Sury Gonzalez APRN.SALOONKEEPER [address] [place] [address] Sales Branch Manager [facility] 02/08/24 Caul Puller Relationship Specialty Start Date End Date Ignacio Cheatham MD [address] [facility] [place] [address] PCP - General Family Medicine 04/16/17 Tresa Marcum, PLISSE MACHINE OPERATOR HELPER.SALOONKEEPER [address] [place] [address] Sales Branch Manager Family Medicine 02/08/24 Sury Gonzalez PLISSE MACHINE OPERATOR HELPER.SALOONKEEPER [address] [place] [address] [facility] 02/08/24 Caul Puller Relationship Specialty Start Date End Date Ignacio Cheatham MD [address] [place] [address] PCP - General Family Medicine 04/16/17 Tresa Marcum, PLISSE MACHINE OPERATOR HELPER.SALOONKEEPER [address] [place] [address] [facility] 02/08/24 Sury Gonzalez PLISSE MACHINE OPERATOR HELPER.SALOONKEEPER [address] [place] [address] [facility] 02/08/24 Caul Puller Relationship Specialty Start Date End Date Ignacio Cheatham MD [address] [place] [address] PCP - General Family Medicine 04/16/17 Tresa Marcum, PLISSE MACHINE OPERATOR HELPER.SALOONKEEPER [address] [place] [address] Sales Branch Manager Family [facility] 02/08/24 Sury Gonzalez APRN.SALOONKEEPER [address] [place] [address] [facility] 02/08/24 Caul Puller Relationship Specialty Start Date End Date Ignacio Cheatham MD [address] [place] [address] PCP - General Family Medicine 04/16/17 Tresa Marcum PLISSE MACHINE OPERATOR HELPER.SALOONKEEPER [address] [place] [address] [facility] 02/08/24 Sury Gonzalez PLISSE MACHINE OPERATOR HELPER.SALOONKEEPER [address] [place] [address] [facility] 02/08/24 Caul Puller Relationship Specialty Start Date End Date Ignacio Cheatham MD [address] [place] [address] PCP - General Family Medicine 04/16/17 Tresa Marcum PLISSE MACHINE OPERATOR HELPER.SALOONKEEPER [address] [place] [address] [facility] Medicine 02/08/24 Sury Gonzalez PLISSE MACHINE OPERATOR HELPER.SALOONKEEPER [address] [place] [address] [facility] Medicine 02/08/24 Caul Puller Relationship Specialty Start Date End Date Ignacio Cheatham MD [address] [place], [place] [address] [phone] PCP - General Family Medicine 04/16/17 Tresa Marcum APRN.SALOONKEEPER [address] [facility] [place] [address] Sales Branch Manager Family Medicine 02/08/24 Sury Gonzalez APRN.SALOONKEEPER [address] [place] [address] Sales Branch Manager Family Medicine 02/08/24 Caul Puller Relationship Specialty Start Date End Date Ignacio Cheatham MD [address] [place] [address] PCP - General Family Medicine 04/16/17 Tresa Marcum APRN.SALOONKEEPER [address] [facility] [place] [address] Sales Branch Manager Family Medicine 02/08/24 Sury Gonzalez APRN.SALOONKEEPER [address] [place] [address] [facility] 02/08/24 Caul Puller Relationship Specialty Start Date End Date Ignacio Cheatham MD [address] [place] [address] PCP - General Family Medicine 04/16/17 Tresa Marcum PLISSE MACHINE OPERATOR HELPER.SALOONKEEPER [address] [place] [address] Sales Branch Manager Family Medicine 02/08/24 Sury Gonzalez APRN.SALOONKEEPER [address] [place] [address] Sales Branch Manager Family Medicine 02/08/24 Caul Puller Relationship Specialty Start Date End Date Ignacio Cheatham MD [address] [facility] [place] [address] PCP - General Family Medicine 04/16/17 Tresa Marcum APRN.SALOONKEEPER [address] [place] [address] Sales Branch Manager Family Medicine 02/08/24 Sury Gonzalez APRN.SALOONKEEPER [address] [facility] [place] [address] Sales Branch Manager Family Medicine 02/08/24 Caul Puller Relationship Specialty Start Date End Date Ignacio Cheatham MD [address] [facility] [place] [address] PCP - General Family Medicine 04/16/17 Tresa Marcum APRN.SALOONKEEPER [address] [place] [address] Sales Branch Manager Family Medicine 02/08/24 Sury Gonzalez APRN.SALOONKEEPER [address] [facility] [place] [address] Sales Branch Manager Family Medicine 02/08/24 Caul Puller Relationship Specialty Start Date End Date Ignacio Cheatham MD [address] [facility] [place] [address] PCP - General Family Medicine 04/16/17 Tresa Marcum APRN.SALOONKEEPER [address] [place] [address] Sales Branch Manager Family Medicine 02/08/24 Sury Gonzalez APRN.SALOONKEEPER [address] [facility] [place] [address] Sales Branch Manager Family [facility] 02/08/24 Caul Puller Relationship Specialty Start Date End Date Ignacio Cheatham MD [address] [place] [address] PCP - General Family Medicine 04/16/17 Tresa Marcum APRN.SALOONKEEPER [address] [facility] [place] [address] Sales Branch Manager Family Medicine 02/08/24 Sury Gonzalez PLISSE MACHINE OPERATOR HELPER.SALOONKEEPER [address] [facility] [place] [address] [facility] 02/08/24 Caul Puller Relationship Specialty Start Date End Date Ignacio Cheatham MD [address] [facility] [place] [address] PCP - General Family Medicine 04/16/17 Tresa Marcum PLISSE MACHINE OPERATOR HELPER.SALOONKEEPER [address] [facility] [place] [address] [facility] 02/08/24 Sury Gonzalez PLISSE MACHINE OPERATOR HELPER.SALOONKEEPER [address] [facility] [place] [address] [facility] 02/08/24 Caul Puller Relationship Specialty Start Date End Date Ignacio Cheatham MD [address] [facility] [place] [address] PCP - General Family Medicine 04/16/17 Tresa Marcum PLISSE MACHINE OPERATOR HELPER.SALOONKEEPER [address] [facility] [place] [address] [facility] 02/08/24 Sury Gonzalez APRN.SALOONKEEPER [address] [facility] [place] [address] [facility] 02/08/24 Caul Puller Relationship Specialty Start Date End Date Ignacio Cheatham MD [address] [facility] [place] [address] PCP - General Family Medicine 04/16/17 Tresa Marcum APRN.SALOONKEEPER [address] [place] [address] [facility] 02/08/24 Sury Gonzalez APRN.SALOONKEEPER [address] [facility] [place] [address] [facility] 02/08/24 Caul Puller Relationship Specialty Start Date End Date Ignacio Cheatham MD [address] [facility] [place] [address] PCP - General Family Medicine 04/16/17 Tresa Marcum APRN.SALOONKEEPER [address] [place] [address] [facility] 02/08/24 Sury Gonzalez PLISSE MACHINE OPERATOR HELPER.SALOONKEEPER [address] [facility] [place] [address] [facility] 02/08/24 Caul Puller Relationship Specialty Start Date End Date Ignacio Cheatham MD [address] [facility] [place] [address] PCP - General Family Medicine 04/16/17 Tresa Marcum APRN.SALOONKEEPER [address] [facility] [place], [place] [address] [facility] 02/08/24 Sury Gonzalez PLISSE MACHINE OPERATOR HELPER.SALOONKEEPER [address] [facility] [place], [place] [address] [facility] 02/08/24 Team Status: Active Member Role/Relationship Status Dates Dr. Ignacio Cheatham MD Primary Care Provider Active Team Status: Active Member Role/Relationship Status Dates Dr. Ignacio Cheatham MD Primary Care Provider Active Start: August 24, 2024 Tresa Marcum PRODUCT TECHNOLOGY SCIENTIST, PRODUCT TECHNOLOGY SCIENTIST-C Attending Provider Active Start: August 24, 2024 Tresa Marcum PRODUCT TECHNOLOGY SCIENTIST, PRODUCT TECHNOLOGY SCIENTIST-C Referring Provider Active Start: August 24, 2024 Team Status: Inactive Member Role/Relationship Status Dates Dr. Ignacio Cheatham MD Primary Care Provider Active Start: September 06, 2024 End: September 06, 2024 Dr. Johnathon Robertson MD Emergency Provider Active S tart: September 06, 2024 End: September 06, 2024 Caul Puller Relationship Specialty Start Date End Date Ignacio Cheatham MD [address] [facility] [place], [place] [address] PCP - General Family Medicine 04/16/17 Tresa Marcum, PLISSE MACHINE OPERATOR HELPER.SALOONKEEPER [address] [facility] [place], [place] [address] [facility] 02/08/24 Sury Gonzalez PLISSE MACHINE OPERATOR HELPER.SALOONKEEPER [address] [facility] [place], [place] [address] [facility] 02/08/24 Caul Puller Relationship Specialty Start Date End Date Ignacio Cheatham MD [address] [facility] [place], [place] [id number] PCP - General Family Medicine 04/16/17 Tresa Marcum, PLISSE MACHINE OPERATOR HELPER.SALOONKEEPER [address] [facility], [place] [address] [facility] 02/08/24 Sury Gonzalez PLISSE MACHINE OPERATOR HELPER.SALOONKEEPER [address] [facility], [place] [address] [facility] 02/08/24 Caul Puller Relationship Specialty Start Date End Date Ignacio Cheatham MD [address] [facility], [place] [address] PCP - General [facility] 04/16/17 Tresa Marcum, PATRICE.SALOONKEEPER [address] [facility], [place] [address] [facility] 02/08/24 Sury Gonzalez PLISSE MACHINE OPERATOR HELPER.SALOONKEEPER [address] [facility], [place] [address] [facility] 02/08/24 Team Status: Inactive Member Role/Relationship Status Dates Dr. Ignacio Cheatham MD Primary Care Provider Active Start: September 06, 2024 End: September 06, 2024 Dr. Johnathon Robertson MD Attending Provider Active S tart: September 06, 2024 End: September 06, 2024 Dr. Johnathon Robertson MD Emergency Provider Active S tart: September 06, 2024 End: September 06, 2024 Team Status: Active Member Role/Relationship Status Dates Dr. Ignacio Cheatham MD Primary Care Provider Active Start: October 10, 2024 Dr. Jim Shah DO Emergency Provider Activ e Start: October 10, 2024 Dr. Son Hallman DO Admit Provider Active Start: October 10, 2024 Dr. Son Hallman DO Attending Provider Active Start: October 10, 2024 Team Status: Inactive Member Role/Relationship Status Dates Dr. Ignacio Cheatham MD Primary Care Provider Active Start: August 22, 2024 End: August 22, 2024 Tresa Marcum PRODUCT TECHNOLOGY SCIENTIST, PRODUCT TECHNOLOGY SCIENTIST-C Attending Provider Active Start: August 22, 2024 End: August 22, 2024 Tresa Marcum NP PRODUCT TECHNOLOGY SCIENTIST-C Referring Provider Active Start: August 22, 2024 End: August 22, 2024 Team Status: Active Member Role/Relationship Status Dates Dr. Ignacio Cheatham MD Primary Care Provider Active Start: October 10, 2024 Dr. Jim Shah DO Emergency Provider Activ e Start: October 10, 2024 Dr. Son Hallman DO Admit Provider Active Start: October 10, 2024 Dr. Son Hallman DO Other Provider Active Start: October 10, 2024 Dr. Sofía Hill MD Other Provider Active Start: October 10, 2024 Dr. Hipolito Shepard MD Attending Provider Active Start: October 10, 2024 Team Status: Inactive Member Role/Relationship Status Dates Dr. Ignacio Cheatham MD Primary Care Provider Active Start: October 10, 2024 End: October 13, 2024 Dr. Jim Shah DO Emergency Provider Activ e Start: October 10, 2024 End: October 13, 2024 Dr. Son Hallman DO Admit Provider Active Start: October 10, 2024 End: October 13, 2024 Dr. Son Hallman DO Other Provider Active Start: October 10, 2024 End: October 13, 2024 Dr. Sofía Hill MD Other Provider Active Start: October 10, 2024 End: October 13, 2024 Dr. Hipolito Shepard MD Attending Provider Active Start: October 10, 2024 End: October 13, 2024 Team Status: Active Member Role/Relationship Status Dates Dr. Ignacio Cheatham MD Primary Care Provider Active Start: October 11, 2024 Dr. Jim Shah DO Emergency Provider Activ e Start: October 11, 2024 Dr. Son Hallman DO Admit Provider Active Start: October 11, 2024 Dr. Son Hallman DO Other Provider Active Start: October 11, 2024 Dr. Sofía Hill MD Other Provider Active Start: October 11, 2024 Dr. Hipolito Shepard MD Attending Provider Active Start: October 11, 2024 Dr. Hipolito Shepard MD Other Provider Active Start: October 11, 2024 Team Status: Active Member Role/Relationship Status Dates Dr. Ignacio Cheatham MD Primary Care Provider Active Start: October 12, 2024 Dr. Jim Shah DO Emergency Provider Activ e Start: October 12, 2024 Dr. Son Hallman DO Admit Provider Active Start: October 12, 2024 Dr. Son Hallman DO Other Provider Active Start: October 12, 2024 Dr. Sofía Hill MD Other Provider Active Start: October 12, 2024 Dr. Hipolito Shepard MD Attending Provider Active Start: October 12, 2024 Dr. Hipolito Shepard MD Other Provider Active Start: October 12, 2024 Caul Puller Relationship Specialty Start Date End Date Ignacio Cheatham MD [address] [place] [address] PCP - General Family Medicine 04/16/17 Tresa Marcum, PLISSE MACHINE OPERATOR HELPER.SALOONKEEPER [address] [place] [address] Sales Branch Manager Family Medicine 02/08/24 Sury Gonzalez, PLISSE MACHINE OPERATOR HELPER.SALOONKEEPER [address] [place] [address] Sales Branch Manager Family Medicine 02/08/24 Caul Puller Relationship Specialty Start Date End Date Ignacio Cheatham MD [address] [place] [address] PCP - General Family Medicine 04/16/17 Tresa Marcum, PLISSE MACHINE OPERATOR HELPER.SALOONKEEPER [address] [place] [address] Sales Branch Manager Family Medicine 02/08/24 Sury Gonzalez PLISSE MACHINE OPERATOR HELPER.SALOONKEEPER [address] [place] [address] Sales Branch Manager Family [facility] 02/08/24 Sury Gonzalez PLISSE MACHINE OPERATOR HELPER.SALOONKEEPER [address] [place] [address] Referring Family Medicine 10/21/24 Sury Gonzalez PLISSE MACHINE OPERATOR HELPER.SALOONKEEPER [address] [place] [address] Home Care Provider Family Medicine 10/21/24 Fred Wolfe, DALE [address] [place], [place] [id number] Implementation Director Post Acute Care 10/21/24 Caul Puller Relationship Specialty Start Date End Date Ignacio Cheatham MD [address] [place] [address] PCP - General Family Medicine 04/16/17 Tresa Marcum APRN.SALOONKEEPER [address] [place] [address] Sales Branch Manager Family Medicine 02/08/24 Sury Gonzalez PLISSE MACHINE OPERATOR HELPER.SALOONKEEPER [address] [place] [address] Sales Branch Manager Family Medicine 02/08/24 Sury Gonzalez APRN.SALOONKEEPER [address] [place] [address] Referring Family Medicine 10/21/24 Sury Gonzalez PLISSE MACHINE OPERATOR HELPER.SALOONKEEPER [address] [place] [address] Home Care Provider Family Medicine 10/21/24 Fred Wolfe, DALE [address] [place] [address] Implementation Director Post Acute Care 10/21/24 Team Status: Active Member Role/Relationship Status Dates Dr. Ignacio Cheatham MD Primary Care Provider Active Start: October 13, 2024 Dr. Jim Shah DO Emergency Provider Activ e Start: October 13, 2024 Dr. Son Hallman DO Admit Provider Active Start: October 13, 2024 Dr. Son Hallman DO Other Provider Active Start: October 13, 2024 Dr. Sofía Hill MD Other Provider Active Start: October 13, 2024 Dr. Hipolito Shepard MD Attending Provider Active Start: October 13, 2024 Dr. Hipolito Shepard MD Other Provider Active Start: October 13, 2024 Team Status: Active Member Role/Relationship Status Dates Dr. Ignacio Cheatham MD Primary Care Provider Active Start: October 24, 2024 Dr. Sylvester Winston DO Emergency Provider Active Start: October 24, 2024 Dr. Mone Riggs MD Admit Provider Active Star t: October 24, 2024 Dr. Mone Riggs MD Attending Provider Active Start: October 24, 2024 Team Status: Inactive Member Role/Relationship Status Dates Dr. Ignacio Cheatham MD Primary Care Provider Active Start: October 24, 2024 End: October 26, 2024 Dr. Sylvester Winston DO Emergency Provider Active Start: October 24, 2024 End: October 26, 2024 Dr. Mone Riggs MD Admit Provider Active Star t: October 24, 2024 End: October 26, 2024 Dr. Mone Riggs MD Other Provider Active Star t: October 24, 2024 End: October 26, 2024 Dr. Sofía Hill MD Other Provider Active Start: October 24, 2024 End: October 26, 2024 Dr. Sylvester Ortiz DO Attending Provider Active Start: October 24, 2024 End: October 26, 2024 Team Status: Active Member Role/Relationship Status Dates Dr. Ignacio Cheatham MD Primary Care Provider Active Start: October 25, 2024 Dr. Syvlester Winston DO Emergency Provider Active Start: October 25, 2024 Dr. Mone Riggs MD Admit Provider Active Star t: October 25, 2024 Dr. Mone Riggs MD Other Provider Active Star t: October 25, 2024 Dr. Sofía Hill MD Other Provider Active Start: October 25, 2024 Dr. Sylvester Ortiz DO Attending Provider Active Start: October 25, 2024 Dr. Sylvester Ortiz DO Other Provider Active Star t: October 25, 2024 Team Status: Active Member Role/Relationship Status Dates Dr. Ignacio Cheatham MD Primary Care Provider Active Start: October 25, 2024 Dr. Romie Dalton MD Attending Provider Active Start: October 25, 2024 Team Status: Active Member Role/Relationship Status Dates Dr. Ignacio Cheatham MD Primary Care Provider Active Start: October 26, 2024 Dr. Sylvester Winston DO Emergency Provider Active Start: October 26, 2024 Dr. Mone Riggs MD Admit Provider Active Star t: October 26, 2024 Dr. Mone Riggs MD Other Provider Active Star t: October 26, 2024 Dr. Sofía Hill MD Other Provider Active Start: October 26, 2024 Dr. Sylvester Ortiz DO Attending Provider Active Start: October 26, 2024 Dr. Sylvester Ortiz DO Other Provider Active Star t: October 26, 2024 Caul Puller Relationship Specialty Start Date End Date Ignacio Cheatham MD [address] [place], [place] [address] PCP - General Family Medicine 04/16/17 Tresa Marcum, PLISSE MACHINE OPERATOR HELPER.SALOONKEEPER [address] [place], [place] [address] Sales Branch Manager Family Medicine 02/08/24 Sury Gonzalez PLISSE MACHINE OPERATOR HELPER.SALOONKEEPER [address] [place], [place] [address] Sales Branch Manager Family Medicine 02/08/24 Sury Gonzalez APRN.NOY [address] [place], [place] [id number] Referring Family Medicine 10/21/24 Sury Gonzalez APRN.NOY [address] [place], [place] [id number] Home Care Provider Family Medicine 10/21/24 Fred Wolfe RN [address] [place] [address] Implementation Director Post Acute Care 10/21/24 Goals (unrecognized section and content) Goals may [...] BE BASED ON THE PRIMARY CLINICAL RECORDS. [facility] [employer] [facility]. provides no warranty or guarantee of the accuracy or completeness of information in this document.
[2024-10-28 22:18] LABS: Pro- Brain NATRIURETIC PEPTIDE > 70000 pg/mL (<=900); Troponin T High Sensitivity 256 ng/L (<=14)
[2024-10-28 22:19] VITALS: RESP 22; O2SAT 95
--- NOTE | 2024-10-28 22:57 | EKG12_ITS ---
Test Reason : REPEAT CP Blood Pressure : */* mmHG Vent. Rate : 96 BPM Atrial Rate : 96 BPM P-R Int : 148 ms QRS Dur : 94 ms QT Int : 372 ms P-R-T Axes : 74 96 116 degrees QTcB Int : 469 ms Normal sinus rhythm Possible Left atrial enlargement Rightward axis Nonspecific ST and T wave abnormality Abnormal ECG Confirmed by Kun Plasencia ([id number]), index editor TULIO FANG ([id number]) on 11/01/2024 10:57:33 AM Referred By: VEENA Confirmed By: Kun Plsaencia
[2024-10-28 23:17] LABS: Troponin T High Sens 2 HR 268 ng/L (<=14)
[2024-10-28 23:19] VITALS: BP 144/67; PULSE 82
[2024-10-29 00:39] VITALS: BP 136/73; PULSE 81; RESP 16; TEMP 36.6; O2SAT 97
== END 2024-10-29 00:40 | disposition home or self-care (01) ==
PROVIDERS: Emergency Provider Emergency Medicine; PCP Family Medicine; Visit Provider Emergency Medicine
DX: R06.00 Dyspnea, unspecified (principal); I13.2 Hypertensive heart and chronic kidney disease with heart failure and with stage 5 chronic kidney disease, or end stage renal disease; N18.6 End stage renal disease; I50.9 Heart failure, unspecified; J44.9 Chronic obstructive pulmonary disease, unspecified; I42.9 Cardiomyopathy, unspecified; E11.40 Type 2 diabetes mellitus with diabetic neuropathy, unspecified; E11.22 Type 2 diabetes mellitus with diabetic chronic kidney disease; J06.9 Acute upper respiratory infection, unspecified; Z99.2 Dependence on renal dialysis; Z87.891 Personal history of nicotine dependence; Z86.718 Personal history of other venous thrombosis and embolism
CPT/HCPCS: 71045; 80048; 83880; 84484; 85025; 93005; 94640; 94760; 96374; 96375; 99284; A4216; J2405

== ENCOUNTER 2024-11-01 06:40 | Inpatient (IN) | payer MEDICARE, MEDICAID, SELFPAY ==
[2024-11-01] VITALS (8 sets, daily range): BP systolic 93–131; BP diastolic 50–80; PULSE 74–87; RESP 16–20; TEMP 36.5–36.9; O2SAT 92–96; BMI 28.9; BMI 27.6
--- NOTE | 2024-11-01 07:15 | EKG12_ITS ---
Test Reason : SYNCOPE Blood Pressure : */* mmHG Vent. Rate : 77 BPM Atrial Rate : 77 BPM P-R Int : 162 ms QRS Dur : 92 ms QT Int : 422 ms P-R-T Axes : 62 78 187 degrees QTcB Int : 477 ms Normal sinus rhythm Possible Left atrial enlargement Low voltage QRS ST & T wave abnormality, consider lateral ischemia Abnormal ECG When compared with ECG of 28-Oct-2024 23:26, MANUAL COMPARISON REQUIRED DATA IS UNCONFIRMED Confirmed by Kun Plasencia ([id number]), editor in chief TULIO FANG ([id number]) on 11/03/2024 6:12:10 AM Referred By: Confirmed By: Kun Plasencia
--- NOTE | 2024-11-01 07:16 | EDS_ITS ---
HPI History of Present Illness Chief Complaint: Syncope Narrative Narrative: Patient is a 59-year-old female presenting to the emergency department for near syncope. Patient has a past medical history of CHF, CKD on dialysis Thursday, , Thursday, DVT, hypertension. Patient states that this morning when she was getting ready for her dialysis she stood up and had been standing for a few moments when she felt washed out. She reports she felt lightheaded and sat down. She did not syncopize. She states this has happened before when her blood pressure is low. She denies any recent changes to her BP meds. She endorses some labored breathing and pain around my diaphgram which she reports is normal for her. She denies fever, chills, chest pain, vomiting, diarrhea. States she has chronic abdominal pain and nausea from IBS and this is baseline for her. Denies any lower extremity edema. Reports she went to dialysis on . [facility] Medical History Anxiety Depression CPAP (continuous positive airway pressure) dependence COPD (chronic obstructive pulmonary disease) Anemia Hyperkalemia Osteoarthritis of right knee Fracture of fibula, right, closed Pathological fracture, right tibia, initial encounter for fracture Diabetes Dialysis patient Kidney disease GERD (gastroesophageal reflux disease) Sleep apnea Former smoker Asthma DVT (deep venous thrombosis) ESRD (end stage renal disease) on dialysis Fracture of right lower extremity Inability to walk Diabetes mellitus, type 2 Obesity Chronic anemia COPD with asthma Bipolar disorder Anxiety and depression HLD (hyperlipidemia) HTN (hypertension) Former tobacco use Neuropathy Fibromyalgia Kidney disease, chronic, stage IV (GFR 15-29 ml/min) History of tobacco use History of diabetes mellitus, type II History of COPD History of bipolar disorder Benign essential hypertension History of asthma Home Medications ?Medication ?Instructions ?Recorded ?Last Taken ?Type cholecalciferol (vitamin D3) 25 5,000 unit PO DAILY CORNELL PPLEMENT 10/03/13 10/23/24 21:00 History mcg (1,000 unit) capsule (Vitamin 5,00 0 unit D3) omeprazole 20 mg capsule,delayed 20 mg PO DAILY GERD 0 08/23/14 10/23/24 21:00 History release 20 mg melatonin 5 mg capsule 10 mg PO QHS sleep 05/27/16 10/23/24 21:00 History 10 mg atorvastatin 40 mg tablet 40 mg PO QHS CHOLESTEROL 02/2110/23/24 21:00 History 40 mg sevelamer carbonate 800 mg tablet 1,600 mg PO TID food 02/04/23 10/10/24 History hydroxyzine HCl 50 mg tablet 50 mg PO Q6H PRN itching 06/29/23 10/23/24 21:00 History 50 mg acetaminophen 325 mg capsule 650 mg PO Q6H PRN pain Unknown History (Tylenol) ondansetron HCl 4 mg tablet 4 mg PO Q8H PRN PRN nausea and 07/02/23 10/10/24 History vomiting dulaglutide 0.75 mg/0.5 mL 0.75 mg subcut QWEEK inject ion 09/06/24 10/19/24 09:00 History subcutaneous pen injector 0.75 mg (Trulicity) duloxetine 30 mg capsule,delayed 30 mg PO DAILY mood 0 09/06/24 10/23/24 21:00 History release 30 mg nifedipine 90 mg tablet,extended 90 mg PO DAILY BP 10/2410/23/24 21:00 History release 90 mg pregabalin 25 mg capsule 50 mg PO QHS neuropathy 07/0 10/2410/23/24 21:00 History albuterol sulfate 90 mcg/actuation 2 puff inhalation Q 2H PRN 10/10/24 10/24/24 12:30 History aerosol inhaler shortness of breath or wheez ing 2 puff calcitriol 0.25 mcg capsule 1.5 mcg PO TUTHSA dialysis 10/10/24 10/08/24 History sucroferric oxyhydroxide 500 mg 500 mg PO TID phosphat e inhib 10/10/24 10/10/24 History chewable tablet (Velphoro) torsemide 100 mg tablet 100 mg PO TUTHSA edema 10/1010/22/24 21:00 History 100 mg fluticasone propionate 50 2 spray intranasal Q12H andie rgies 10/24/24 Unknown History mcg/actuation nasal spray,suspension cyclobenzaprine 5 mg tablet 5 mg PO TID PRN muscle spa sm #14 10/26/24 Unknown Rx tabs guaifenesin 600 mg tablet, 600 mg PO QHS mucus 5 Unknown History extended release 12 hr (Mucinex) Allergy/AdvReac Type Severity Reaction Status Date / Time balsam carin Allergy Unknown UNKNOWN Verified 11/01/24 06:41 mold Allergy Unknown unknown Verified 11/01/24 06:41 lisinopril Allergy unknown Verified 11/01/24 06:41 Penicillins Allergy Anaphylaxis Verified 11/01/24 06:41 tetracycline (Tetracycline) Allergy Anaphylaxis Verified 11/01/24 06:41 codeine AdvReac Abd Verified 11/01/24 06:41 cramps/diarrhea diphenhydramine HCl (From AdvReac Upset Verified 11/01/24 06:41 Benadryl) Stomach hydrocodone bitartrate (From AdvReac Abd Verified 11/01/24 06:41 Vicodin) cramps/diarrhea NSAIDS (Non-Steroidal AdvReac Unknown Verified 11/01/24 06:41 Anti-Inflamma Family History Mother Heart disease Hypertension Diabetes Kidney disease Father Diabetes Surgical History H/O cataract extraction H/O vitrectomy History of appendectomy History of cholecystectomy H/O vascular surgery H/O gastric bypass S/P cholecystectomy S/P appendectomy Social History household members: none Smoking Status: Former smoker how long ago did patient quit smoking: Quit age 24. alcohol intake: never substance use type: does not use ROS ROS ED ROS Narrative see HPI EXAM Physical Exam Narrative Exam Narrative: Vital signs: Reviewed General: Alert and oriented x 3. No acute distress HEENT: Head is normocephalic and atraumatic, sinuses nontender, pupils equal round and reactive. Nares are patent. Oropharynx and throat exams normal. Neck: Supple without lymphadenopathy nontender Cardiovascular: Regular rate and rhythm, no murmurs. No rubs or gallops. Normal S1 and S2 Respiratory: Clear to auscultation bilaterally. No wheezes, rales, rhonchi Abdominal: Soft and nontender. Normal bowel sounds. No guarding or rebound. Nonsurgical abdomen Extremities: Left upper extremity AV fistula in forearm with palpable thrill. No tenderness. No bruising. Normal range of motion. Normal sensation. Skin: No rash or redness. Neurological: Cranial nerves II through XII are grossly intact. Normal strength and sensation. Normal cerebellar function The rest of the physical exam is unremarkable Const Vital Signs: 11/01/24 06:41 11/01/24 06:46 11/01/24 06:49 Temperature 97.7 F L 97.7 F L Temperature Source Oral Oral Pulse Rate 75 75 Pulse Rate [Lying] Pulse Rate [Sitting (for 1 minute prior to obtaining)] Pulse Rate [Standing (for 1 minute prior to obtaining)] Respiratory Rate 16 16 Respiratory Pattern Normal Blood Pressure 100/53 L 100/53 L Blood Pressure [Lying] Blood Pressure [Sitting (for 1 minute prior to obtaining)] Blood Pressure [Standing (for 1 minute prior to obtaining)] Blood Pressure Mean 68 68 Blood Pressure Mean [Lying] Blood Pressure Mean [Sitting (for 1 minute prior to obtaining)] Blood Pressure Mean [Standing (for 1 minute prior to obtaining)] Pulse Ox 95 96 Oxygen Delivery Method Room Air Room Air 11/01/24 07:15 11/01/24 09:00 11/01/24 11:00 Temperature Temperature Source Pulse Rate 77 79 Pulse Rate [Lying] 74 Pulse Rate [Sitting (for 1 minute prior to obtaining)] 75 Pulse Rate [Standing (for 1 minute prior to obtaining)] 76 Respiratory Rate 18 18 Respiratory Pattern Blood Pressure 112/62 106/80 Blood Pressure [Lying] 104/60 Blood Pressure [Sitting (for 1 minute prior to obtaining)] 93/50 L Blood Pressure [Standing (for 1 minute prior to obtaining)] 102/54 L Blood Pressure Mean 78 88 Blood Pressure Mean [Lying] 74 Blood Pressure Mean [Sitting (for 1 minute prior to obtaining)] 64 Blood Pressure Mean [Standing (for 1 minute prior to obtaining)] 70 Pulse Ox 92 95 Oxygen Delivery Method Room Air Room Air MDM MDM MDM Narrative Medical decision making narrative: Patient is a 59-year-old female presenting to the emergency department for near syncope. Patient was seen and examined. Vitals are stable. She is mildly hypotensive on arrival to 100/53. She is resting in bed comfortably in no acute distress. Differential includes but is not limited to: Orthostatic hypotension. Near syncope from ACS or cardiac dysrhythmia, electrolyte imbalance, less likely PE versus intracranial abnormality Patient is neurologically intact, NIH of 0. Do not think this is secondary from a neuro cause. Patient has no shortness of breath, no chest pain, no hypoxia. I do not think this is secondary to a PE. EKG shows normal sinus rhythm. There is some nonspecific ST changes. ST depression V3-V6. No reciprocal ST elevation. There are some T wave flattening. CBC with no leukocytosis and chronic anemia of 9.0. CMP with mild hyponatremia of 131, anion gap of 19, baseline kidney function, hyperglycemia of 475. VBG with no acidosis, normal ketones, no evidence of DKA. 10 units insulin subq given. Small fluid bolus given, mindful not to fluid overload with CHF history. Initial troponin 365, up from baseline in the mid to 250s 3 days ago. Reflex troponin 356. Urinalysis with small amount of WBC and leukocyte esterase, no nitrites or bacteria. With no dysuira will send for urine culture. Doubt this is true UTI. Discussed findings with patient. I recommended admission for further cardiac workup given her elevated troponin. I spoke with Dr. Shepard for admission who accepted the patient. He asked that I speak to cardiology about the elevated troponin and on his chart review he did see that an echo was done during her prior visit that showed an ejection fraction around 25% which was significantly decreased from her baseline with normal EF. Spoke with Dr. Plasencia, cardiology, about elevated troponin. Recommends just watching for now. States with no chest pain or shortness of breath and troponin only moderately elevated from her baseline given she is on dialysis less likely cardiac in nature. Recommended starting the patient on heart failure therapy while inpatient given the severely decreased EF on last ECHO. Clinical impression Hyperglycemia Elevated troponin History & Record Review Discussion w/independent historian: Patient Additional record(s) reviewed:: Prior inpatient record Lab Data Attestation: I reviewed the patient's lab results. Labs: Laboratory Results - last 24 hr 11/01/24 11/01/24 11/01/24 06:47 06:59 07:43 WBC 6.8 RBC 2.98 L Hgb 9.0 L Hct 28.1 L MCV 94.3 MCH 30.2 MCHC 32.0 RDW Std Deviation 55.4 H RDW Coeff of Ben 16.2 H Plt Count 151 MPV 10.9 Immature Gran % (Auto) 0.600 Neut % (Auto) 79.6 H Lymph % (Auto) 11.2 L [place] % (Auto) 5.2 Eos % (Auto) 2.8 Baso % (Auto) 0.6 Absolute Neuts (auto) 5.4 Absolute Lymphs (auto) 0.76 L Nucleated RBC % 0.3 Sodium 131 L Potassium 4.1 Chloride 91 L Carbon Dioxide 20.6 L Anion Gap 19 H BUN 46 H Creatinine 6.88 H Estim Creat Clear Calc 10.13 L Est GFR (MDRD) Non-Af 6 L BUN/Creatinine Ratio 6.6 L Glucose 475 H* Calcium 8.7 Magnesium 2.3 H Total Bilirubin 0.61 AST 19 ALT 16 Alkaline Phosphatase 65 Troponin T High Sens 365 H* D Troponin T Hi Sens 2 Hr Total Protein 5.7 L Albumin 3.4 L Globulin 2.2 Albumin/Globulin Ratio 1.5 b-Hydroxybutyric mmol/L 0.2 Urine Color Yellow Urine Clarity Clear Urine pH 6.0 Ur Specific [place] 1.010 Urine Protein 100 H Urine Glucose (UA) 1000 H Urine Ketones Negative Urine Occult Blood 150 H Urine Nitrite Negative Urine Bilirubin Negative Urine Urobilinogen Normal Ur Leukocyte Esterase 500 H Urine RBC 0 SEEN Urine WBC 5-10 SEEN Ur Squamous Epith Cells 0-5 SEEN Urine Bacteria 0 SEEN Urine Mucus 0 SEEN POC Glucose 450 H 11/01/24 09:20 WBC RBC Hgb Hct MCV MCH MCHC RDW Std Deviation RDW Coeff of Ben Plt Count MPV Immature Gran % (Auto) Neut % (Auto) Lymph % (Auto) [place] % (Auto) Eos % (Auto) Baso % (Auto) Absolute Neuts (auto) Absolute Lymphs (auto) Nucleated RBC % Sodium Potassium Chloride Carbon Dioxide Anion Gap BUN Creatinine Estim Creat Clear Calc Est GFR (MDRD) Non-Af BUN/Creatinine Ratio Glucose Calcium Magnesium Total Bilirubin AST ALT Alkaline Phosphatase Troponin T High Sens Troponin T Hi Sens 2 Hr 356 H* Total Protein Albumin Globulin Albumin/Globulin Ratio b-Hydroxybutyric mmol/L Urine Color Urine Clarity Urine pH Ur Specific [place] Urine Protein Urine Glucose (UA) Urine Ketones Urine Occult Blood Urine Nitrite Urine Bilirubin Urine Urobilinogen Ur Leukocyte Esterase Urine RBC Urine WBC Ur Squamous Epith Cells Urine Bacteria Urine Mucus POC Glucose ABG Data ABG results: ABG 11/01/24 09:43 Specimen Type LILIANA Sample Site Not entered VBG pH 7.50 H VBG pO2 36 VBG HCO3 24 VBG Total CO2 25 VBG O2 Sat (Calc) 76 H VBG Base Excess 0 POC Mix VBG pCO2 Pt Tmp 30.4 L O2 Delivery Device Not entered Radiography Chest X-Ray - ED: Read by ED Physician, Cardiomegaly and CHF Diagnostic Testing: Clinical Impression(s) from Imaging Studies Chest X-Ray 11/01/24 07:20 IMPRESSION: There is mild cardiomegaly with central vascular congestion and increased interstitial markings which may represent mild congestive change. There are trace bilateral pleural effusions. Reading Location: [facility] Discharge Plan Disposition Disposition: Acute Care Hospital [facility] Discharge Date/Time: 11/01/24 13:28
--- NOTE | 2024-11-01 07:20 | RAD_ITS ---
PROCEDURE: CHEST PA AND LATERAL 11/01/2024 REASON FOR EXAM: WEAKNESS TECHNIQUE: Procedure Code: RADCXR Modality: DX Procedure: CHEST PA AND LATERAL COMPARISON: October 28, 2024 FINDINGS: There is mild cardiomegaly with central vascular congestion and increased interstitial markings which may represent mild congestive change. There is no focal consolidation. There are trace bilateral pleural effusions. There is no pneumothorax. Surgical clips are noted in the upper abdomen. Aortic calcifications are visible. There is no acute bony abnormality. RAD/Chest PA and Lateral IMPRESSION: There is mild cardiomegaly with central vascular congestion and increased inter stitial markings which may represent mild congestive change. There are trace bilateral pleural effusions. Reading Location: [facility]
[2024-11-01 07:25] LABS: Hematocrit 28.1 % (37-47); Hemoglobin 9.0 g/dL (12.0-15.0); Immature Granulocytes Count 0.040 X10^3/uL (0.0-0.0); Mean Corp Hgb Conc 32.0 g/dL (32-36); Mean Corpuscular Volume 94.3 fL (81-99); Mean Platelet Vol. 10.9 fl (6.2-12.0); NRBC Flagged by Analyzer 0.3 % (0-5); Platelet Count 151 K/mm3 (150-450); RBC Distribution Width CV 16.2 % (11.6-14.6); RBC Distribution Width SD 55.4 fl (35.1-43.9); Red Blood Count 2.98 M/mm3 (4.2-5.4); White Blood Count 6.8 K/mm3 (4.4-11.0)
[2024-11-01 07:48] LABS: Color, Urine Yellow (Yellow); Glucose, Dipstick 1000 mg/dl (Normal); Ketone-Dipstick Negative (Negative); Leukocyte Esterase-Dipstick 500 /ul (Negative); Mucous, Urine 0 SEEN /hpf (<or=2+); Nitrite-Dipstick Negative (Negative); Occult Blood-Urine 150 /ul (Negative); Protein-Dipstick 100 mg/dl (Negative); Red Blood Cells-Urine 0 SEEN /hpf (0-5); Specific Gravity, Urine 1.010 (1.002-1.030); Urine Bilirubin Dipstick Negative (Negative)
[2024-11-01 07:54] LABS: Squamous Epithelial Cells - UA 0-5 SEEN /hpf (5-10)
[2024-11-01 07:54] LABS: Troponin T High Sensitivity 365 ng/L (<=14)
[2024-11-01 08:16] LABS: AST(SGOT) 19 U/L (<=31); Alanine Aminotransfer ALT/SGPT 16 U/L (<=34); Albumin, Serum 3.4 g/dL (3.5-5.0); Alkaline Phosphatase 65 U/L (35-104); Anion Gap 19 (5-15); BUN 46 mg/dL (4-19); BUN/Creat Ratio 6.6 RATIO (10-20); Calcium,Total 8.7 mg/dL (7.6-11.0); Carbon Dioxide 20.6 mmol/L (21.0-32.0); Chloride 91 mmol/L (98-108); Estimated Creatinine Clearance 10.13 ml/min (50-250); Globulin 2.2 g/dL (2.2-4.2); Glucose 475 mg/dL (70-99); Potassium 4.1 mmol/L (3.3-5.1)
[2024-11-01 09:47] LABS: SITE Not entered; VBG BASE EXCESS 0 mmol/L (-1.0-3.5); VBG PO2 36 mmHg (25-40); VBG SO2 76 % (50-70); VBG TCO2 25 mmol/L (23-33)
[2024-11-01] MEDS: 0.9% Normal Saline (500mL Bag) 500 ML IV (09:48)
[2024-11-01] MEDS: Insulin NPH Human 100 UNITS/ML PEN 10 UNITS SC (09:48)
[2024-11-01 10:18] LABS: BETA-HYDROXYBUTYRATE 0.2 mmol/L (0.0-0.3); Magnesium 2.3 mg/dL (1.5-2.2)
[2024-11-01 10:39] LABS: Troponin T High Sens 2 HR 356 ng/L (<=14)
--- NOTE | 2024-11-01 11:45 | CM.ED ---
Social work Reason for referral: admission to acute Referral source: case find SW entered patient's room, introducing self and role at [facility]. Patient stated nothing had changed from last admission; last discharged from [facility] on 10/26/24. Patient stated having [facility] and the therapy and nursing was a help at home. Patient stated still needing help with aide services at home, meal services, and transportation help. Patient stated also needing help with getting patient's disability from Social Security figured out as patient had reportedly planned on going to the office today. Handoff to acute RNCM/SW team via email for needs due to recent discharge. Kati Carlson, SHELLFISH CHECKER, FIELD CONTRACTOR
--- NOTE | 2024-11-01 13:04 | HP.PCM.HOS_ITS ---
HPI - General General Date of Admission: 11/01/24 HPI Narrative Margareth OLIVARES, is a 59 F who presents to the hospital with near syncopal episode. She was on her way to dialysis when she fell to the ground, she denies hitting her head. She felt like she might lose consciousness but does not believe she did. She has been having recent issues with shortness of breath and and volume overload. On her previous admission she was found to have an ejection fraction of 25 to 30% which is down from 65% in March. During that admission, it was for shortness of breath so she did receive dialysis of 4.3 L removal and her shortness of breath resolved so she was discharged home with outpatient follow- up. However since the beginning of September when I first had her her troponins have continued to climb and given the significant reduction in her ejection fraction cardiology has been consulted in the emergency room. She denies any chest pain and denies any lightheadedness or dizziness currently. She is no longer having any shortness of breath she is 95% on room air. [facility] Medical History Anxiety Depression CPAP (continuous positive airway pressure) dependence COPD (chronic obstructive pulmonary disease) Anemia Hyperkalemia Osteoarthritis of right knee Fracture of fibula, right, closed Pathological fracture, right tibia, initial encounter for fracture Diabetes Dialysis patient Kidney disease GERD (gastroesophageal reflux disease) Sleep apnea Former smoker Asthma DVT (deep venous thrombosis) ESRD (end stage renal disease) on dialysis Fracture of right lower extremity Inability to walk Diabetes mellitus, type 2 Obesity Chronic anemia COPD with asthma Bipolar disorder Anxiety and depression HLD (hyperlipidemia) HTN (hypertension) Former tobacco use Neuropathy Fibromyalgia Kidney disease, chronic, stage IV (GFR 15-29 ml/min) History of tobacco use History of diabetes mellitus, type II History of COPD History of bipolar disorder Benign essential hypertension History of asthma Home Medications ?Medication ?Instructions ?Recorded ?Last Taken ?Type cholecalciferol (vitamin D3) 25 5,000 unit PO DAILY CORNELL PPLEMENT 10/03/13 10/23/24 21:00 History mcg (1,000 unit) capsule (Vitamin 5,00 0 unit D3) omeprazole 20 mg capsule,delayed 20 mg PO DAILY GERD 0 08/23/14 10/23/24 21:00 History release 20 mg melatonin 5 mg capsule 10 mg PO QHS sleep 05/27/16 10/23/24 21:00 History 10 mg atorvastatin 40 mg tablet 40 mg PO QHS CHOLESTEROL 02/2110/23/24 21:00 History 40 mg sevelamer carbonate 800 mg tablet 1,600 mg PO TID food 02/04/23 10/10/24 History hydroxyzine HCl 50 mg tablet 50 mg PO Q6H PRN itching 06/29/23 10/23/24 21:00 History 50 mg acetaminophen 325 mg capsule 650 mg PO Q6H PRN pain Unknown History (Tylenol) ondansetron HCl 4 mg tablet 4 mg PO Q8H PRN PRN nausea and 07/02/23 10/10/24 History vomiting dulaglutide 0.75 mg/0.5 mL 0.75 mg subcut QWEEK inject ion 09/06/24 10/19/24 09:00 History subcutaneous pen injector 0.75 mg (Trulicity) duloxetine 30 mg capsule,delayed 30 mg PO DAILY mood 0 09/06/24 10/23/24 21:00 History release 30 mg nifedipine 90 mg tablet,extended 90 mg PO DAILY BP 10/2410/23/24 21:00 History release 90 mg pregabalin 25 mg capsule 50 mg PO QHS neuropathy 07/10/2410/23/24 21:00 History albuterol sulfate 90 mcg/actuation 2 puff inhalation Q 2H PRN 10/10/24 10/24/24 12:30 History aerosol inhaler shortness of breath or wheez ing 2 puff calcitriol 0.25 mcg capsule 1.5 mcg PO TUTHSA dialysis 10/10/24 10/08/24 History sucroferric oxyhydroxide 500 mg 500 mg PO TID phosphat e inhib 10/10/24 10/10/24 History chewable tablet (Velphoro) torsemide 100 mg tablet 100 mg PO TUTHSA edema 10/1010/22/24 21:00 History 100 mg fluticasone propionate 50 2 spray intranasal Q12H andie rgies 10/24/24 Unknown History mcg/actuation nasal spray,suspension cyclobenzaprine 5 mg tablet 5 mg PO TID PRN muscle spa sm #14 10/26/24 Unknown Rx tabs guaifenesin 600 mg tablet, 600 mg PO QHS mucus 5 Unknown History extended release 12 hr (Mucinex) Allergy/AdvReac Type Severity Reaction Status Date / Time renetta carin Allergy Unknown UNKNOWN Verified 11/01/24 06:41 mold Allergy Unknown unknown Verified 11/01/24 06:41 lisinopril Allergy unknown Verified 11/01/24 06:41 Penicillins Allergy Anaphylaxis Verified 11/01/24 06:41 tetracycline (Tetracycline) Allergy Anaphylaxis Verified 11/01/24 06:41 codeine AdvReac Abd Verified 11/01/24 06:41 cramps/diarrhea diphenhydramine HCl (From AdvReac Upset Verified 11/01/24 06:41 Benadryl) Stomach hydrocodone bitartrate (From AdvReac Abd Verified 11/01/24 06:41 Vicodin) cramps/diarrhea NSAIDS (Non-Steroidal AdvReac Unknown Verified 11/01/24 06:41 Anti-Inflamma Family History Mother Heart disease Hypertension Diabetes Kidney disease Father Diabetes Surgical History H/O cataract extraction H/O vitrectomy History of appendectomy History of cholecystectomy H/O vascular surgery H/O gastric bypass S/P cholecystectomy S/P appendectomy Social History household members: none Smoking Status: Former smoker how long ago did patient quit smoking: Quit age 24. alcohol intake: never substance use type: does not use ROS Constitutional Constitutional: Denies chills, fatigue, fever(s) or malaise Eyes Eyes: Denies blurry vision ENT HEENT: Denies headache(s) or nasal discharge Cardiovascular Cardiovascular: Reports other Details: Near syncope ; Denies chest pain, dyspnea on exertion or syncope Respiratory/Chest Respiratory/Chest: Reports shortness of breath at rest; Denies cough or shortness of breath with exertion Gastrointestinal Gastrointestinal: Denies constipation, diarrhea, nausea or vomiting Genitourinary Genitourinary: Denies dysuria Neurologic Neurologic: Denies focal weakness, numbness or tremor(s) Psychiatric Psychiatric: Denies anxiety or depression Vital Signs Vital Signs Vital Signs: 11/01/24 06:41 11/01/24 06:46 11/01/24 06:49 Temperature 97.7 F L 97.7 F L Temperature Source Oral Oral Pulse Rate 75 75 Pulse Rate [Lying] Pulse Rate [Sitting (for 1 minute prior to obtaining)] Pulse Rate [Standing (for 1 minute prior to obtaining)] Respiratory Rate 16 16 Respiratory Pattern Normal Blood Pressure 100/53 L 100/53 L Blood Pressure [Lying] Blood Pressure [Sitting (for 1 minute prior to obtaining)] Blood Pressure [Standing (for 1 minute prior to obtaining)] Blood Pressure Mean 68 68 Blood Pressure Mean [Lying] Blood Pressure Mean [Sitting (for 1 minute prior to obtaining)] Blood Pressure Mean [Standing (for 1 minute prior to obtaining)] Pulse Ox 95 96 Oxygen Delivery Method Room Air Room Air 11/01/24 07:15 11/01/24 09:00 11/01/24 11:00 Temperature Temperature Source Pulse Rate 77 79 Pulse Rate [Lying] 74 Pulse Rate [Sitting (for 1 minute prior to obtaining)] 75 Pulse Rate [Standing (for 1 minute prior to obtaining)] 76 Respiratory Rate 18 18 Respiratory Pattern Blood Pressure 112/62 106/80 Blood Pressure [Lying] 104/60 Blood Pressure [Sitting (for 1 minute prior to obtaining)] 93/50 L Blood Pressure [Standing (for 1 minute prior to obtaining)] 102/54 L Blood Pressure Mean 78 88 Blood Pressure Mean [Lying] 74 Blood Pressure Mean [Sitting (for 1 minute prior to obtaining)] 64 Blood Pressure Mean [Standing (for 1 minute prior to obtaining)] 70 Pulse Ox 92 95 Oxygen Delivery Method Room Air Room Air Weight Weight: 190 lb 4.143 oz Body Mass Index (BMI) 28.9 Physical Exam Narrative General: Alert, Oriented x3, Cooperative, No apparent distress HEENT: Atraumatic, PERRLA, EOMI, Normocephalic Oral: Moist Mucosa Neck: Supple Lungs: Diminished, Normal air movement, No rhonchi, No wheeze, No rales Cardiovascular: Regular rate, Regular Rhythm, Normal S1, Normal S2, No murmurs Abdomen: Soft, Non Tender, Non-Distended, No Hepato-splenomegaly Extremities: No edema, Capillary Refill Less than 3 Seconds Skin: No rashes, No breakdown Musculoskeletal: No Tenderness to Palpation of Joints or Extremities Neurological: No focal neurological deficits, moves all extremities, sensation intact Psych/Mental Status: Normal Affect, Appropriate Results Lab / Micro Data 11/01/24 06:59 11/01/24 06:59 Labs: Laboratory Results - last 24 hr 11/01/24 06:47: POC Glucose 450 H 11/01/24 06:59: WBC 6.8, RBC 2.98 L, Hgb 9.0 L, Hct 28.1 L, MCV 94.3, MCH 30.2, MCHC 32.0, RDW Std Deviation 55.4 H, RDW Coeff of Ben 16.2 H, Plt Count 151, MPV 10.9, Immature Gran % (Auto) 0.600, Neut % (Auto) 79.6 H, Lymph % (Auto) 11.2 L, [place] % (Auto) 5.2, Eos % (Auto) 2.8, Baso % (Auto) 0.6, Absolute Neuts (auto) 5.4, Absolute Lymphs (auto) 0.76 L, Nucleated RBC % 0.3, Sodium 131 L, Potassium 4.1, Chloride 91 L, Carbon Dioxide 20.6 L, Anion Gap 19 H, BUN 46 H, Creatinine 6.88 H, Estim Creat Clear Calc 10.13 L, Est GFR (MDRD) Non-Af 6 L, B UN/Creatinine Ratio 6.6 L, Glucose 475 H*, Calcium 8.7, Magnesium 2.3 H, Total Bilirubin 0.61, AST 19, ALT 16, Alkaline Phosphatase 65, Troponin T High Sens 365 H* D, Total Protein 5.7 L, Albumin 3.4 L, Globulin 2.2, Albumin/Globulin Ratio 1.5, b-Hydroxybutyric mmol/L 0.2 11/01/24 07:43: Urine Color Yellow, Urine Clarity Clear, Urine pH 6.0, Ur Specific [place] 1.010, Urine Protein 100 H, Urine Glucose (UA) 1000 H, Urine Ketones Negative, Urine Occult Blood 150 H, Urine Nitrite Negative, Urine Bilirubin Negative, Urine Urobilinogen Normal, Ur Leukocyte Esterase 500 H, Urine RBC 0 SEEN, Urine WBC 5-10 SEEN, Ur Squamous Epith Cells 0-5 SEEN, Urine Bacteria 0 SEEN, Urine Mucus 0 SEEN 11/01/24 09:20: Troponin T Hi Sens 2 Hr 356 H* ABG Data ABG results: ABG 11/01/24 09:43 Specimen Type LILIANA Sample Site Not entered VBG pH 7.50 H VBG pO2 36 VBG HCO3 24 VBG Total CO2 25 VBG O2 Sat (Calc) 76 H VBG Base Excess 0 POC Mix VBG pCO2 Pt Tmp 30.4 L O2 Delivery Device Not entered Imaging Radiology Impression Chest X-Ray 11/01/24 07:20 IMPRESSION: There is mild cardiomegaly with central vascular congestion and increased interstitial markings which may represent mild congestive change. There are trace bilateral pleural effusions. [facility] & Plan Assessment/Plan (1) CHF (congestive heart failure): PLAN: Plan 1. Near syncope in the setting of subacute systolic CHF/essential HTN/HLD ? On her previous admission she presented for shortness of breath and had dialysis that removed 4.3 L at that time she had a slightly elevated troponin from her baseline however it was felt to likely be due to her renal failure ? Echocardiogram was obtained at that time which demonstrated an EF of 25 to 30% with global left ventricular hypokinesis ? 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 In the meantime we will place her on goal-directed therapy for her systolic CHF, will discontinue her nifedipine ? Continue with losartan and Lipitor, will also add Coreg ? Will add Jardiance both from diabetic perspective as well from her heart failure perspective. ? Will continue with her torsemide 2. DM2 with end-stage renal disease on dialysis/anemia of chronic disease ? Continue with sliding scale insulin and will add long-acting ? Accu-Cheks ACHS ? Will also add Jardiance ? Will monitor and make adjustments as necessary ? Will consult nephrology for dialysis as she missed her dialysis session today 3. Bipolar disorder ? Stable ? Continue with her home meds 4. GERD ? Stable ? Continue with PPI DVT: Heparin 75 minutes was spent on direct patient care, including documentation as well as chart review and collaboration with colleagues Charges/Coding Visit Charges Inpatient E&M: 46497 Init Hosp L3
[2024-11-01] MEDS: SEVELAMER CARBONATE 800 MG TABLET 1600 MG PO ×2 (14:57→21:36)
[2024-11-01] MEDS: Heparin Injection (Vial) 5,000 UNIT/ML VIAL 5000 UNIT SC ×2 (14:57→21:34)
[2024-11-01 15:05] LABS: Magnesium 2.1 mg/dL (1.5-2.2)
[2024-11-01 15:52] LABS: Troponin T High Sens 4 HR 378 ng/L (<=14)
--- NOTE | 2024-11-01 16:50 | CON.PCM.CA_ITS ---
Assessment & Plan Assessment/Plan (1) Cardiomyopathy: QUALIFIERS: Cardiomyopathy type: unspecified Qualified Code(s): I 42.9 - Cardiomyopathy, unspecified PLAN: Patient has a heart failure with reduced ejection fraction. She was last admitted August 2024 with respiratory distress pneumonia and felt to be in heart failure. Echocardiogram at that time showed an EF of 25-30%. She was not treated with guideline directed medical therapy at that point in time. Her breathing improved and has stayed stable since that point in time. O2 saturation is 95% on room air in the ER today. We were consulted due to a drop in ejection fraction from 65% to 25-30% over a 7 months timeframe from March 2024. I would recommend we repeat a limited echo given the stability of her symptoms over the last month. I would also recommend that we switch her from nifedipine 90 mg to a combination of losartan and Coreg. The patient has already been started on these 2 drugs as well as empagliflozin. (2) Chronic kidney disease with end stage renal failure on dialysis: PLAN: Patient is on renal replacement therapy with hemodialysis. She is scheduled for dialysis tomorrow. (3) Syncope: QUALIFIERS: Syncope type: unspecified Qualified Code(s): R55 - Syncope and collapse PLAN: Patient reports that she has been having issues since her blood pressure medicine has been changed around with dizziness and near syncopal. She did not fall today by her report but felt all washed out and nearly syncopal. She sat down in the chair. Patient's blood pressure by EMS was 100 systolic and was 100?112 systolic in the emergency department. It is now drifted up in the 134 mmHg range. PLAN: Plan 1. Recommend we change her medications to treat her LV dysfunction. 2. Nifedipine has been discontinued. 3. Coreg 3.125 mg and losartan 50 mg daily have been instituted. We will titrate these to blood pressure and heart rate tolerances. 4. Would recommend limited echocardiogram to reevaluate the patient's LV function. HPI Consult Data Date of Consult: 11/01/24 HPI Narrative Reason for Consultation: Heart failure with reduced ejection fraction HPI Narrative: Margareth OLIVARES, is a 59 F who presents with what she describes as a syncopal-like event today. She reports that she did not get hurt she did go to the ground and then sat down in her chair and felt dizzy. She came to the emergency department rather than going to her dialysis appointment today. Her last dialysis was Thursday. The patient denies any shortness of breath she denies any PND orthopnea. She reports that her weight has been consistent with her usual dry weight and 3 pound weight gain between dialysis. The patient is on nifedipine 90 mg daily. She is on no other antihypertensive. She does take furosemide 100 mg Thursday for edema. The patient had an EF of 65% by echocardiogram March 2024. When she was last admitted here August 2024 for shortness of breath her EF was estimated at 25-30%. Since that admission which was complicated by pneumonia by her report she has had no recurrence of that type of shortness of breath. Her edema has been well- controlled and her weight has been stable. Since admission the patient has been started on carvedilol 3.125 mg twice daily empagliflozin 10 mg daily losartan 50 mg daily. The nifedipine has been discontinued. [facility] Medical History Anxiety Depression CPAP (continuous positive airway pressure) dependence COPD (chronic obstructive pulmonary disease) Anemia Hyperkalemia Osteoarthritis of right knee Fracture of fibula, right, closed Pathological fracture, right tibia, initial encounter for fracture Diabetes Dialysis patient Kidney disease GERD (gastroesophageal reflux disease) Sleep apnea Former smoker Asthma DVT (deep venous thrombosis) ESRD (end stage renal disease) on dialysis Fracture of right lower extremity Inability to walk Diabetes mellitus, type 2 Obesity Chronic anemia COPD with asthma Bipolar disorder Anxiety and depression HLD (hyperlipidemia) HTN (hypertension) Former tobacco use Neuropathy Fibromyalgia Kidney disease, chronic, stage IV (GFR 15-29 ml/min) History of tobacco use History of diabetes mellitus, type II History of COPD History of bipolar disorder Benign essential hypertension History of asthma Home Medications ?Medication ?Instructions ?Recorded ?Last Taken ?Type cholecalciferol (vitamin D3) 25 5,000 unit PO DAILY CORNELL PPLEMENT 10/03/13 10/23/24 21:00 History mcg (1,000 unit) capsule (Vitamin 5,00 0 unit D3) omeprazole 20 mg capsule,delayed 20 mg PO DAILY GERD 0 08/23/14 10/23/24 21:00 History release 20 mg melatonin 5 mg capsule 10 mg PO QHS sleep 05/27/16 10/23/24 21:00 History 10 mg atorvastatin 40 mg tablet 40 mg PO QHS CHOLESTEROL 02/2110/23/24 21:00 History 40 mg sevelamer carbonate 800 mg tablet 1,600 mg PO TID food 02/04/23 10/10/24 History hydroxyzine HCl 50 mg tablet 50 mg PO Q6H PRN itching 06/29/23 10/23/24 21:00 History 50 mg acetaminophen 325 mg capsule 650 mg PO Q6H PRN pain Unknown History (Tylenol) ondansetron HCl 4 mg tablet 4 mg PO Q8H PRN PRN nausea and 07/02/23 10/10/24 History vomiting dulaglutide 0.75 mg/0.5 mL 0.75 mg subcut QWEEK inject ion 09/06/24 10/19/24 09:00 History subcutaneous pen injector 0.75 mg (Trulicity) duloxetine 30 mg capsule,delayed 30 mg PO DAILY mood 0 09/06/24 10/23/24 21:00 History release 30 mg nifedipine 90 mg tablet,extended 90 mg PO DAILY BP 10/2410/23/24 21:00 History release 90 mg pregabalin 25 mg capsule 50 mg PO QHS neuropathy 07/0 10/2410/23/24 21:00 History albuterol sulfate 90 mcg/actuation 2 puff inhalation Q 2H PRN 10/10/24 10/24/24 12:30 History aerosol inhaler shortness of breath or wheez ing 2 puff calcitriol 0.25 mcg capsule 1.5 mcg PO TUTHSA dialysis 10/10/24 10/08/24 History sucroferric oxyhydroxide 500 mg 500 mg PO TID phosphat e inhib 10/10/24 10/10/24 History chewable tablet (Velphoro) torsemide 100 mg tablet 100 mg PO TUTHSA edema 10/1010/22/24 21:00 History 100 mg fluticasone propionate 50 2 spray intranasal Q12H andie rgies 10/24/24 Unknown History mcg/actuation nasal spray,suspension cyclobenzaprine 5 mg tablet 5 mg PO TID PRN muscle spa sm #14 10/26/24 Unknown Rx tabs guaifenesin 600 mg tablet, 600 mg PO QHS mucus 5 Unknown History extended release 12 hr (Mucinex) Allergy/AdvReac Type Severity Reaction Status Date / Time balsam carin Allergy Unknown UNKNOWN Verified 11/01/24 06:41 mold Allergy Unknown unknown Verified 11/01/24 06:41 lisinopril Allergy unknown Verified 11/01/24 06:41 Penicillins Allergy Anaphylaxis Verified 11/01/24 06:41 tetracycline (Tetracycline) Allergy Anaphylaxis Verified 11/01/24 06:41 codeine AdvReac Abd Verified 11/01/24 06:41 cramps/diarrhea diphenhydramine HCl (From AdvReac Upset Verified 11/01/24 06:41 Benadryl) Stomach hydrocodone bitartrate (From AdvReac Abd Verified 11/01/24 06:41 Vicodin) cramps/diarrhea NSAIDS (Non-Steroidal AdvReac Unknown Verified 11/01/24 06:41 Anti-Inflamma Family History Mother Heart disease Hypertension Diabetes Kidney disease Father Diabetes Surgical History H/O cataract extraction H/O vitrectomy History of appendectomy History of cholecystectomy H/O vascular surgery H/O gastric bypass S/P cholecystectomy S/P appendectomy Social History household members: none Smoking Status: Former smoker how long ago did patient quit smoking: Quit age 24. alcohol intake: never substance use type: does not use ROS Constitutional Constitutional: Reports as per HPI Eyes Eyes: Reports systems reviewed and no addt'l complaints, except as documented ENT HEENT: Reports systems reviewed and no addt'l complaints, except as documented Cardiovascular Cardiovascular: Reports as per HPI Respiratory/Chest Respiratory/Chest: Reports as per HPI Gastrointestinal Gastrointestinal: Reports systems reviewed and no addt'l complaints, except as documented Genitourinary Genitourinary: Reports as per HPI Musculoskeletal Musculoskeletal: Reports systems reviewed and no addt'l complaints, except as documented Integumentary Integumentary: Reports systems reviewed and no addt'l complaints, except as documented Neurologic Neurologic: Reports systems reviewed and no addt'l complaints, except as documented Psychiatric Psychiatric: Reports systems reviewed and no addt'l complaints, except as documented Endocrine Endocrinology: Reports as per HPI Hematologic/Lymphatic Hematologic/Lymphatic: Reports systems reviewed and no addt'l complaints, except as documented Allergic/Immunologic Allergic/Immunologic: Reports systems reviewed and no addt'l complaints, except as documented Physical Exam Const alert and oriented x3 HEENT normocephalic Eyes EOMs intact bilaterally Neck no carotid bruits Chest inspection of chest normal Resp normal respiratory effort and clear to auscultation bilaterally Cardio Cardio Narrative: Distant heart tones. Rate: regular rate Rhythm: regular rhythm Heart Sounds: S1 normal and S2 normal; Negative for click, gallop or murmur Extremity no pedal edema Extremity Narrative: Functioning AV fistula in the left forearm. Skin Skin Narrative: Hyperpigmentation. Neuro Neuro Narrative: Alert and oriented x 3 Psych mental status grossly normal Charges/Coding Visit Charges Inpatient E&M: 38471 Init Hosp L2 Objective Data Vital Signs: Vital Signs Temp Pulse Resp BP Pulse Ox O2 Del Method 98.3 F 84 16 131/58 H 94 Room Air 11/01/24 14:43 11/01/24 14:43 11/01/24 14:43 11/01/24 14:43 11/01/24 14:43 11/01/24 14:43 Oxygen Delivery Method Room Air Weight: 182 lb 1.629 oz Body Mass Index (BMI) 27.6 Intake & Output: Intake and Output for Last 24 Hours 10/30/24 10/31/24 11/01/24 23:59 23:59 23:59 Intake Total 500 / 500 Balance 500 / 500 Lab / Micro Data Attestation: I reviewed the patient's lab results. 11/01/24 06:59 11/01/24 06:59 Labs: Laboratory Results - last 24 hr 11/01/24 06:47: POC Glucose 450 H 11/01/24 06:59: WBC 6.8, RBC 2.98 L, Hgb 9.0 L, Hct 28.1 L, MCV 94.3, MCH 30.2, MCHC 32.0, RDW Std Deviation 55.4 H, RDW Coeff of Ben 16.2 H, Plt Count 151, MPV 10.9, Immature Gran % (Auto) 0.600, Neut % (Auto) 79.6 H, Lymph % (Auto) 11.2 L, [place] % (Auto) 5.2, Eos % (Auto) 2.8, Baso % (Auto) 0.6, Absolute Neuts (auto) 5.4, Absolute Lymphs (auto) 0.76 L, Nucleated RBC % 0.3, Sodium 131 L, Potassium 4.1, Chloride 91 L, Carbon Dioxide 20.6 L, Anion Gap 19 H, BUN 46 H, Creatinine 6.88 H, Estim Creat Clear Calc 10.13 L, Est GFR (MDRD) Non-Af 6 L, B UN/Creatinine Ratio 6.6 L, Glucose 475 H*, Calcium 8.7, Magnesium 2.3 H, Total Bilirubin 0.61, AST 19, ALT 16, Alkaline Phosphatase 65, Troponin T High Sens 365 H* D, Total Protein 5.7 L, Albumin 3.4 L, Globulin 2.2, Albumin/Globulin Ratio 1.5, b-Hydroxybutyric mmol/L 0.2 11/01/24 07:43: Urine Color Yellow, Urine Clarity Clear, Urine pH 6.0, Ur Specific [place] 1.010, Urine Protein 100 H, Urine Glucose (UA) 1000 H, Urine Ketones Negative, Urine Occult Blood 150 H, Urine Nitrite Negative, Urine Bilirubin Negative, Urine Urobilinogen Normal, Ur Leukocyte Esterase 500 H, Urine RBC 0 SEEN, Urine WBC 5-10 SEEN, Ur Squamous Epith Cells 0-5 SEEN, Urine Bacteria 0 SEEN, Urine Mucus 0 SEEN 11/01/24 09:20: Troponin T Hi Sens 2 Hr 356 H* 11/01/24 14:30: Magnesium 2.1, Troponin T Hi Sens 4Hr 378 H* 11/01/24 16:07: POC Glucose 281 H ABG Data ABG results: ABG 11/01/24 09:43 Specimen Type LILIANA Sample Site Not entered VBG pH 7.50 H VBG pO2 36 VBG HCO3 24 VBG Total CO2 25 VBG O2 Sat (Calc) 76 H VBG Base Excess 0 POC Mix VBG pCO2 Pt Tmp 30.4 L O2 Delivery Device Not entered Rhythm Strip Rhythm Strip: Sinus Rhythm Rate: 85 Cardiology Labs/Tests 11/01/24 06:59: WBC 6.8, RBC 2.98 L, Hgb 9.0 L, Hct 28.1 L, MCV 94.3, MCH 30.2, MCHC 32.0, Plt Count 151, MPV 10.9, Immature Gran % (Auto) 0.600, Neut % (Auto) 79.6 H, Lymph % (Auto) 11.2 L, [place] % (Auto) 5.2, Eos % (Auto) 2.8, Baso % (Auto) 0.6, Absolute Neuts (auto) 5.4, Nucleated RBC % 0.3, Sodium 131 L, Potassium 4.1, Chloride 91 L, Carbon Dioxide 20.6 L, Anion Gap 19 H, BUN 46 H, C reatinine 6.88 H, Est GFR (MDRD) Non-Af 6 L, BUN/Creatinine Ratio 6.6 L, Glucose 475 H*, Calcium 8.7, Magnesium 2.3 H, Total Bilirubin 0.61 11/01/24 07:43: Urine Color Yellow, Urine Clarity Clear, Urine pH 6.0, Ur Specific [place] 1.010, Urine Protein 100 H, Urine Glucose (UA) 1000 H, Urine Ketones Negative, Urine Occult Blood 150 H, Urine Nitrite Negative, Urine Bilirubin Negative, Urine Urobilinogen Normal, Ur Leukocyte Esterase 500 H, Urine RBC 0 SEEN, Urine WBC 5-10 SEEN 11/01/24 09:43: VBG pH 7.50 H, VBG pO2 36, VBG HCO3 24, VBG O2 Sat (Calc) 76 H, VBG Base Excess 0 11/01/24 14:30: Magnesium 2.1 Rhythm: EKG: ECHO: Stress Test: Cardiac Cath: PCI: CT Surgery: Holter monitor: EPS: PPM: CXR: Chest CT Scan: Radiography Diagnostic Testing: Radiology Impression Chest X-Ray 11/01/24 07:20 IMPRESSION: There is mild cardiomegaly with central vascular congestion and increased interstitial markings which may represent mild congestive change. There are trace bilateral pleural effusions. Reading Location: [facility] Risk Score for UA/STEMI Assesmment (YES = 1) Risk Stratification Applicable: Yes Age > or = 65: No > or = 3 CAD risk factors (HTN, Hypercholesterolemia, Diabetes, family hx, current smoker): Yes Known CAD (Stenosis > or = 50%): No ASA used in past 7 days: No Severe angina (> or = 2 episodes in 24 hrs): No EKG ST change > or = 0.5mm: No Positive cardiac markers: Yes Score [facility] Risk Score of mortality/ recurrent ischemic event over the next 14 days: 2 = 8.3% - Low Risk
--- NOTE | 2024-11-01 17:07 | ECHOL_ITS ---
Reason For Study Reason For Study: CHF Procedure This was a limited 2D transthoracic echocardiogram. Myocardial strain analysis was performed in this exam to aid in the assessment of cardiac function. Exam performed portable in patient room. Left Ventricle Normal size and thickness. Severe posterior and inferior hypokinesis. Generalized hypokinesis. Estimated LVEF 35%. At least stage I diastolic dysfunction. Global longitudinal strain -12.7% which is abnormal. Right Ventricle Normal right ventricle. Atria The left atrium is mildly enlarged. Normal right atrium. Mitral Valve Severe mitral valve annular calcification. Tricuspid Valve Normal tricuspid valve. Aortic Valve Trisinus/trileaflet aortic valve. Pulmonic Valve The pulmonic valve is not well visualized. Great Vessels Normal sized aortic root. Pericardium/Pleural No pericardial effusion. MMode/2D Measurements & Calculations LVIDd: 5.3 cm LVPWd: 1.1 cm Ao root diam: 3.2 cm LVIDs: 4.8 cm FS: 8.9 % RVDd: 3.3 cm LAV(MOD-bp): 102.3 ml LVAd ap4: 38.4 cm2 LVAd ap2: 34.2 cm2 LAV(MOD-bp) Indexed: 53.2 ml/m2 LVLd ap4: 8.1 cm LVLd ap2: 8.0 cm LAV(MOD-sp2): 100.7 ml EDV(MOD-sp4): 151.7 ml EDV(MOD-sp2): 125.9 ml LAV(MOD-sp4): 101.8 ml EDV(sp4-el): 153.6 ml EDV(sp2-el): 123.3 ml LVAs ap4: 26.4 cm2 LVAs ap2: 23.3 cm2 LVLs ap4: 7.1 cm LVLs ap2: 6.7 cm ESV(MOD-sp4): 84.3 ml ESV(MOD-sp2): 69.4 ml ESV(sp4-el): 83.8 ml ESV(sp2-el): 68.2 ml EF(MOD-sp4): 44.5 % EF(MOD-sp2): 44.9 % EF(sp4-el): 45.4 % SV(MOD-sp4): 67.4 ml SV(MOD-sp2): 56.5 ml SV(sp4-el): 69.8 ml SI(MOD-sp4): 35.1 ml/m2 SI(MOD-sp2): 29.4 ml/m2 LA A4 area: 26.6 cm2 LA dimension(2D): 4.3 cm RA A4 area: 13.3 cm2 ECHO/Echo, Limited Study Interpretation Summary Limited 2D echocardiogram. No Doppler study performed. Severe posterior and inferior hypokinesis. Generalized hypokinesis. Estimated L VEF 35%. At least stage I diastolic dysfunction. Global longitudinal strain -12.7% which is abnormal. The left atrium is mildly enlarged. Severe mitral valve annular calcification. Ordering Physician: Kun Plasencia Referring Physician: Buck Archibald Performed By: Brea Bush RDCS, RVT
[2024-11-01 19:13] LABS: Magnesium 2.0 mg/dL (1.5-2.2)
[2024-11-01] MEDS: Insulin Glargine-YFGN 100 UNIT/ML Pen 10 UNIT SC (21:35)
--- NOTE | 2024-11-01 22:50 | PCM.HOSP.N ---
Hospitalist Note Pt notified nursing of her routine use of albuterol MDI nightly while at home; she reports occasional wheezing and SOB, but none currently. Denies dizziness, feeling palpitations or cough. Albuterol 2.5mg INH PRN Q2h SOB/Wheezing/cough. Currently 95% on RA, HR 80, BP 127/59.
[2024-11-01 23:02] LABS: Magnesium 2.2 mg/dL (1.5-2.2)
[2024-11-02] VITALS (22 sets, daily range): BP systolic 119–162; BP diastolic 61–104; PULSE 83–94; RESP 14–16; TEMP 36.3–37; O2SAT 93–100; BMI 27.4; BMI 26.0
[2024-11-02 02:42] LABS: Magnesium 2.1 mg/dL (1.5-2.2)
[2024-11-02] MEDS: SEVELAMER CARBONATE 800 MG TABLET 1600 MG PO ×2 (06:01→13:45)
[2024-11-02] MEDS: Heparin Injection (Vial) 5,000 UNIT/ML VIAL 5000 UNIT SC ×3 (06:01→21:02)
[2024-11-02 06:21] LABS: Hematocrit 24.4 % (37-47); Hemoglobin 8.1 g/dL (12.0-15.0); Immature Granulocytes Count 0.040 X10^3/uL (0.0-0.0); Mean Corp Hgb Conc 33.2 g/dL (32-36); Mean Corpuscular Volume 90.7 fL (81-99); Mean Platelet Vol. 10.6 fl (6.2-12.0); NRBC Flagged by Analyzer 0 % (0-5); Platelet Count 125 K/mm3 (150-450); RBC Distribution Width CV 15.8 % (11.6-14.6); RBC Distribution Width SD 51.4 fl (35.1-43.9); Red Blood Count 2.69 M/mm3 (4.2-5.4); White Blood Count 6.3 K/mm3 (4.4-11.0)
[2024-11-02 07:48] LABS: Anion Gap 17 (5-15); BUN 54 mg/dL (4-19); BUN/Creat Ratio 7.3 RATIO (10-20); Calcium,Total 8.7 mg/dL (7.6-11.0); Carbon Dioxide 20.9 mmol/L (21.0-32.0); Chloride 94 mmol/L (98-108); Estimated Creatinine Clearance 9.19 ml/min (50-250); Glucose 131 mg/dL (70-99); Magnesium 2.2 mg/dL (1.5-2.2); Potassium 4.0 mmol/L (3.3-5.1)
--- NOTE | 2024-11-02 07:53 | PCM.PN.HOSP ---
Subjective Subjective Patient is a 59-year-old lady with history of end-stage renal disease on hemodialysis who presented to the emergency department with near syncopal episode and epigastric discomfort. Objective Data Objective Data Vital Signs: Vital Signs Temp Pulse Resp BP Pulse Ox O2 Del Method 97.4 F L 85 16 142/67 H 95 Room Air 11/02/24 03:09 11/02/24 03:09 11/02/24 03:09 11/02/24 03:09 11/02/24 03:09 11/02/24 03:09 Oxygen Delivery Method Room Air Weight: 81.9 kg Body Mass Index (BMI) 27.4 Intake & Output: Intake and Output for Last 24 Hours 10/31/24 11/01/24 11/02/24 23:59 23:59 23:59 Intake Total 500 / 740 480 / 480 Balance 500 / 740 480 / 480 Lab / Micro Data 11/02/24 05:56 11/02/24 05:56 Labs: Laboratory Results - last 24 hr 11/01/24 06:59: Sodium 131 L, Potassium 4.1, Chloride 91 L, Carbon Dioxide 20.6 L, Anion Gap 19 H, BUN 46 H, Creatinine 6.88 H, Estim Creat Clear Calc 10.13 L, Est GFR (MDRD) Non-Af 6 L, BUN/Creatinine Ratio 6.6 L, Glucose 475 H*, Calcium 8.7, Magnesium 2.3 H, Total Bilirubin 0.61, AST 19, ALT 16, Alkaline Phosphatase 65, Troponin T High Sens 365 H* D, Total Protein 5.7 L, Albumin 3.4 L, Globulin 2.2, Albumin/Globulin Ratio 1.5, b-Hydroxybutyric mmol/L 0.2 11/01/24 07:43: Urine Color Yellow, Urine Clarity Clear, Urine pH 6.0, Ur Specific [place] 1.010, Urine Protein 100 H, Urine Glucose (UA) 1000 H, Urine Ketones Negative, Urine Occult Blood 150 H, Urine Nitrite Negative, Urine Bilirubin Negative, Urine Urobilinogen Normal, Ur Leukocyte Esterase 500 H, Urine RBC 0 SEEN, Urine WBC 5-10 SEEN, Ur Squamous Epith Cells 0-5 SEEN, Urine Bacteria 0 SEEN, Urine Mucus 0 SEEN 11/01/24 09:20: Troponin T Hi Sens 2 Hr 356 H* 11/01/24 14:30: Magnesium 2.1, Troponin T Hi Sens 4Hr 378 H* 11/01/24 16:07: POC Glucose 281 H 11/01/24 18:25: Magnesium 2.0 11/01/24 21:31: POC Glucose 97 11/01/24 22:09: Magnesium 2.2 11/01/24 22:21: POC Glucose 81 11/01/24 23:41: POC Glucose 191 H 11/02/24 02:08: Magnesium 2.1 11/02/24 05:56: WBC 6.3, RBC 2.69 L, Hgb 8.1 L, Hct 24.4 L, MCV 90.7, MCH 30.1, MCHC 33.2, RDW Std Deviation 51.4 H, RDW Coeff of Ben 15.8 H, Plt Count 125 L, MPV 10.6, Immature Gran % (Auto) 0.600, Neut % (Auto) 73.0 H, Lymph % (Auto) 16.5 L, [place] % (Auto) 5.5, Eos % (Auto) 4.1, Baso % (Auto) 0.3, Absolute Neuts (auto) 4.6, Absolute Lymphs (auto) 1.04, Nucleated RBC % 0, Sodium 131 L, Potassium 4.0, Chloride 94 L, Carbon Dioxide 20.9 L, Anion Gap 17 H, BUN 54 H, Creatinine 7.40 H, Estim Creat Clear Calc 9.19 L*, Est GFR (MDRD) Non-Af 6 L, BUN/Creatinine Ratio 7.3 L, Glucose 131 H, Calcium 8.7, Magnesium 2.2 11/02/24 05:58: POC Glucose 121 H ABG Data ABG results: ABG 11/01/24 09:43 Specimen Type LILIANA Sample Site Not entered VBG pH 7.50 H VBG pO2 36 VBG HCO3 24 VBG Total CO2 25 VBG O2 Sat (Calc) 76 H VBG Base Excess 0 POC Mix VBG pCO2 Pt Tmp 30.4 L O2 Delivery Device Not entered Radiography Diagnostic Testing: Radiology Impression Chest X-Ray 11/01/24 07:20 IMPRESSION: There is mild cardiomegaly with central vascular congestion and increased interstitial markings which may represent mild congestive change. There are trace bilateral pleural effusions. Reading Location: [facility] Rhythm Strip Rhythm Strip: Sinus Rhythm Rate: 85 Physical Exam Narrative GENERAL: cooperative HEENT: Atraumatic; normocephalic EYES; Anicteric, Normal Conjunctiva NECK; supple, normal thyroid, RESPIRATORY: Diminished to auscultation CARDIOVASCULAR: Regular S1 S2, GI: soft, normoactive bowel sounds, : No Renal angle tenderness; EXTREMITIES: No edema, no clubbing, MUSCULOSKELETAL: no muscle wasting NEURO: Awake; no lateralizing signs. SKIN: No Rash PSYCH; Flat affect Assessment & Plan Assessment/Plan (1) CHF (congestive heart failure): PLAN: Plan Patient is a 59-year-old lady with history of end-stage renal disease on hemodialysis who presented to the emergency department with near syncopal episode and epigastric discomfort. 1. Near syncopal episode ? Patient admitted to monitored bed for continuous telemetry. Echo obtained demonstrated EF of 25 to 30%. Seen in consultation by cardiology recommendation was made to discontinue nifedipine and start patient on losartan Coreg 2. Chest pain with elevated troponin ? Echo result as reported above plans for patient to undergo subsequent evaluation with a nuclear stress test in a.m. 3. End-stage renal disease ? Patient is on dialysis on Wednesdays and Fridays consult was placed to nephrology for dialysis orders. 4. Diabetes mellitus type 2 with complications including diabetic nephropathy ? Discontinue patient home regimen in addition to Accu-Cheks AC and at bedtime with sliding scale coverage 5. GERD ? On PPI 6.Cardiomyopathy with EF of 25 to 30% ? Patient has been placed on guideline directed medical therapy 7. Dyslipidemia ? Patient is on atorvastatin 8. Depression with anxiety ? Patient is on duloxetine 9. Elevated D-dimer ? CT of the chest ordered to rule out PE 10. DVT prophylaxis ? Subcu Time spent in the patient's overall evaluation,decision-making process, review of diagnostic data, adjustment of management, discussion with other providers, nursing nursing and ancillary staff involved in patient's care documentation, 50 Minutes Charges/Coding Visit Charges Inpatient E&M: 18738 Subs Hosp L3
--- NOTE | 2024-11-02 07:56 | PN.CARD_ITS ---
Subjective Subjective Patient resting comfortably in the bed. Denies any PND orthopnea denies any chest symptoms at this time. Troponins continue to run in the 360 range. ECG does not show any acute ischemic changes. Telemetry continues to show normal sinus rhythm at 80-85 bpm. Patient has received 1 dose of Coreg and is due to get her second dose of Coreg and losartan this morning. Blood pressures and heart rate are stable. Patient is just beginning to start dialysis this morning. And the plan is for her to be dialyzed again tomorrow morning. Objective Data Vital Signs: Vital Signs Temp Pulse Resp BP Pulse Ox O2 Del Method 97.4 F L 85 16 142/67 H 95 Room Air 11/02/24 03:09 11/02/24 03:09 11/02/24 03:09 11/02/24 03:09 11/02/24 03:09 11/02/24 03:09 Oxygen Delivery Method Room Air Weight: 180 lb 8.937 oz Body Mass Index (BMI) 27.4 Intake & Output: Intake and Output for Last 24 Hours 10/31/24 11/01/24 11/02/24 23:59 23:59 23:59 Intake Total 500 / 740 480 / 480 Balance 500 / 740 480 / 480 Lab / Micro Data Attestation: I reviewed the patient's lab results. 11/02/24 05:56 11/02/24 05:56 Labs: Laboratory Results - last 24 hr 11/01/24 06:59: Sodium 131 L, Potassium 4.1, Chloride 91 L, Carbon Dioxide 20.6 L, Anion Gap 19 H, BUN 46 H, Creatinine 6.88 H, Estim Creat Clear Calc 10.13 L, Est GFR (MDRD) Non-Af 6 L, BUN/Creatinine Ratio 6.6 L, Glucose 475 H*, Calcium 8.7, Magnesium 2.3 H, Total Bilirubin 0.61, AST 19, ALT 16, Alkaline Phosphatase 65, Total Protein 5.7 L, Albumin 3.4 L, Globulin 2.2, Albumin/Globulin Ratio 1.5, b-Hydroxybutyric mmol/L 0.2 11/01/24 09:20: Troponin T Hi Sens 2 Hr 356 H* 11/01/24 14:30: Magnesium 2.1, Troponin T Hi Sens 4Hr 378 H* 11/01/24 16:07: POC Glucose 281 H 11/01/24 18:25: Magnesium 2.0 11/01/24 21:31: POC Glucose 97 11/01/24 22:09: Magnesium 2.2 11/01/24 22:21: POC Glucose 81 11/01/24 23:41: POC Glucose 191 H 11/02/24 02:08: Magnesium 2.1 11/02/24 05:56: WBC 6.3, RBC 2.69 L, Hgb 8.1 L, Hct 24.4 L, MCV 90.7, MCH 30.1, MCHC 33.2, RDW Std Deviation 51.4 H, RDW Coeff of Ben 15.8 H, Plt Count 125 L, MPV 10.6, Immature Gran % (Auto) 0.600, Neut % (Auto) 73.0 H, Lymph % (Auto) 16.[address] L, [place] % (Auto) 5.5, Eos % (Auto) 4.1, Baso % (Auto) 0.3, Absolute Neuts (auto) 4.6, Absolute Lymphs (auto) 1.04, Nucleated RBC % 0, Sodium 131 L, Potassium 4.0, Chloride 94 L, Carbon Dioxide 20.9 L, Anion Gap 17 H, BUN 54 H, C reatinine 7.40 H, Estim Creat Clear Calc 9.19 L*, Est GFR (MDRD) Non-Af 6 L, B UN/Creatinine Ratio 7.3 L, Glucose 131 H, Calcium 8.7, Magnesium 2.2 11/02/24 05:58: POC Glucose 121 H ABG Data ABG results: ABG 11/01/24 09:43 Specimen Type LILIANA Sample Site Not entered VBG pH 7.50 H VBG pO2 36 VBG HCO3 24 VBG Total CO2 25 VBG O2 Sat (Calc) 76 H VBG Base Excess 0 POC Mix VBG pCO2 Pt Tmp 30.4 L O2 Delivery Device Not entered Rhythm Strip Rhythm Strip: Sinus Rhythm Rate: 80 Cardiology Labs/Tests 11/01/24 06:59: Sodium 131 L, Potassium 4.1, Chloride 91 L, Carbon Dioxide 20.6 L, Anion Gap 19 H, BUN 46 H, Creatinine 6.88 H, Est GFR (MDRD) Non-Af 6 L, B UN/Creatinine Ratio 6.6 L, Glucose 475 H*, Calcium 8.7, Magnesium 2.3 H, Total Bilirubin 0.61 11/01/24 09:43: VBG pH 7.50 H, VBG pO2 36, VBG HCO3 24, VBG O2 Sat (Calc) 76 H, VBG Base Excess 0 11/01/24 14:30: Magnesium 2.1 11/01/24 18:25: Magnesium 2.0 11/01/24 22:09: Magnesium 2.2 11/02/24 02:08: Magnesium 2.1 11/02/24 05:56: WBC 6.3, RBC 2.69 L, Hgb 8.1 L, Hct 24.4 L, MCV 90.7, MCH 30.1, MCHC 33.2, Plt Count 125 L, MPV 10.6, Immature Gran % (Auto) 0.600, Neut % (Auto) 73.0 H, Lymph % (Auto) 16.[address] L, [place] % (Auto) 5.5, Eos % (Auto) 4.1, Baso % (Auto) 0.3, Absolute Neuts (auto) 4.6, Nucleated RBC % 0, Sodium 131 L, Potassium 4.0, Chloride 94 L, Carbon Dioxide 20.9 L, Anion Gap 17 H, BUN 54 H, C reatinine 7.40 H, Est GFR (MDRD) Non-Af 6 L, BUN/Creatinine Ratio 7.3 L, Glucose 131 H, Calcium 8.7, Magnesium 2.2 Rhythm: EKG: ECHO: Stress Test: Cardiac Cath: PCI: CT Surgery: Holter monitor: EPS: PPM: CXR: Chest CT Scan: Physical Exam Const alert and oriented x3 HEENT normocephalic Eyes EOMs intact bilaterally Neck no JVD Chest inspection of chest normal Resp normal respiratory effort and clear to auscultation bilaterally Cardio Cardio Narrative: Distant heart tones no obvious murmur auscultated. Rate: regular rate Rhythm: regular rhythm Heart Sounds: S1 normal and S2 normal; Negative for click, gallop or murmur Extremity General Extremity: edema bilateral lower extremity Details: trace Skin Skin Narrative: Hyperpigmented Neuro Neuro Narrative: Alert and oriented x 3 Psych mental status grossly normal Assessment & Plan Assessment/Plan (1) Cardiomyopathy: QUALIFIERS: Cardiomyopathy type: unspecified Qualified Code(s): I 42.9 - Cardiomyopathy, unspecified PLAN: Patient has a history of dilated cardiomyopathy EF in the 25-30% range as of her last echocardiogram. Repeat limited echo was done today. Will continue to titrate guideline directed medical therapy started yesterday. Blood pressure and heart rate are tolerating the Coreg, losartan to be added to the Coreg today. Patient does not appear to be congested clinically she denies any shortness of breath. Given troponins 365 and 378 we will perform a pharmacologic nuclear stress test to rule out ongoing ischemia. Pharm note will be done later today after dialysis. (2) Syncope: QUALIFIERS: Syncope type: unspecified Qualified Code(s): R55 - Syncope and collapse PLAN: Patient denies any recurrence of her near syncopal spell that brought her to the hospital yesterday. Telemetry has shown no significant arrhythmias she remains in sinus rhythm with a heart rate in the 80-85 bpm range primarily. (3) ESRD (end stage renal disease) on dialysis: PLAN: Patient scheduled for dialysis this morning and again tomorrow morning. She had missed her dialysis yesterday she is on Thursday schedule. PLAN: Plan 1. Continue with dialysis per protocol. 2. Continue to titrate LV recovery guideline directed medical therapy as blood pressure and heart rate will tolerate. 3. Follow-up limited echo to reevaluate LV function done earlier today. Limited echo done due to improvement in clinical status since her last echocardiogram showing an EF of 25 to 30%. 4. Pharmacologic nuclear stress test recommendations to follow once results are available. Charges/Coding Visit Charges Inpatient E&M: 49035 Subs Hosp L2
[2024-11-02 10:19] LABS: Troponin T High Sensitivity 306 ng/L (<=14)
[2024-11-02] MEDS: PureFlow B 2K Dialysis Soln 1 BAG 6 BAG PF (11:25)
[2024-11-02] MEDS: 0.9% Normal Saline 1,000 ML IV.SOLN. 1000 ML OPERA.SITE (11:26)
[2024-11-02 11:31] LABS: D-Dimer Quantitative (DVT/PE) 1.00 FEU/ug/m (0.27-0.49)
--- NOTE | 2024-11-02 11:36 | NURSING ---
Meds given late d/t pt receiving dialysis
[2024-11-02 11:42] LABS: Magnesium 2.2 mg/dL (1.5-2.2)
[2024-11-02 11:45] LABS: Troponin T High Sens 2 HR 297 ng/L (<=14)
--- NOTE | 2024-11-02 12:58 | CT_ITS ---
PROCEDURE: CTA CHEST W/WO CONTRAST 11/02/2024 REASON FOR EXAM: ELEVATED D DIMER TECHNIQUE: Procedure Code: [id number] Modality: CT Procedure: CTA CHEST W/WO CONTRAST Multiplanar Sagittal and Coronal images were obtained. 3D post processing was performed CONTRAST: Isovue 370 VOLUME: 88 mL One or more dose reduction techniques were used (e.g., Automated exposure control, adjustment of the mA and/or kV according to patient size, use of iterative reconstruction technique). RADIATION DOSE SUMMARY: CTDlvol: 29 mGy DLP: 535 mGycm COMPARISON: November 01, 2024, October 10, 2024 # of known CTs in the past 12 months: 7 # of known Cardiac Nuclear Medicine Studies in the past 12 months: 0 FINDINGS: Thoracic Aorta: Normal caliber. Kutw-ba-lltsstiy atherosclerotic plaque. No aneurysm. Heart: Mild enlargement. No pericardial effusion. Coronary artery atherosclerosis is advanced. Pulmonary Vessels: Timing and quality of the contrast bolus is diagnostic. However, there is some respiratory motion artifact in the lower lobes limiting the mid to distal segmental and subsegmental vessels. Apparent filling defect in the coronal image left lower lobe image 170 is volume averaging of the pulmonary vein rather than the artery. No evidence of acute or chronic pulmonary embolus. Hardware: None Lymph nodes: Prevascular lymph nodes are seen but are not enlarged in short axis. Left hilar lymph node is 14 x 18 mm. Subcarinal lymph node is 30 x 15 mm. Lungs and Airways: Subsegmental atelectasis inferior lingula. Compressive atelectasis both lower lobes with lwnjw-ye-rypwqmhn pleural effusions. Ground-glass opacity and smooth interlobular septal thickening was shown in the upper lobes. Pleura: Gonjr-mn-acerqvtr bilateral pleural effusions. No pneumothorax. Upper Abdomen: Postsurgical changes stomach and small bowel from likely prior gastric bypass. Advanced atherosclerosis. Bones: Degenerative changes lower thoracic spine. CT/CTA Chest W/WO Contrast IMPRESSION: 1. No evidence of acute or chronic pulmonary embolus. Mild limitation in the lower lobes. 2. Interstitial and alveolar edema. Yrzcw-lv-mzwycgii pleural effusions with atelectasis of the lung bases. 3. Cardiac enlargement. Coronary artery atherosclerosis. Advanced aortic ath erosclerosis and splanchnic vessel atherosclerosis in the upper abdomen. 4. Left hilar and subcarinal lymph nodes are mildly enlarged. These are likel y reactive but nevertheless non-specific. Reading Location: [id number]
--- NOTE | 2024-11-02 13:00 | CON.PCM.RE_ITS ---
Assessment & Plan Assessment/Plan (1) ESRD (end stage renal disease) on dialysis: PLAN: On dialysis Thursday, , Thursday schedule. Last dialysis was Thursday. Seen on dialysis today, see orders/flowsheets. Fluid removal 3 to 4 L as tolerated. Her dry weight has been adjusted down recently. Echocardiogram with severely decreased ejection fraction. For stress test later today. Cardiology following. HPI Consult Data Date of Consult: 11/02/24 HPI Narrative Reason for Consultation: ESRD HPI Narrative: Margareth OLIVARES, is a 59 F who presents To the hospital with shortness of breath. Nephrology on consultation in view of ESRD. She was recently admitted with similar complaints, was aggressively dialyzed. Echocardiogram showed low ejection fraction compared to before. She is scheduled for stress test later today. Seen on dialysis today, looks comfortable. [facility] Medical History Anxiety Depression CPAP (continuous positive airway pressure) dependence COPD (chronic obstructive pulmonary disease) Anemia Hyperkalemia Osteoarthritis of right knee Fracture of fibula, right, closed Pathological fracture, right tibia, initial encounter for fracture Diabetes Dialysis patient Kidney disease GERD (gastroesophageal reflux disease) Sleep apnea Former smoker Asthma DVT (deep venous thrombosis) ESRD (end stage renal disease) on dialysis Fracture of right lower extremity Inability to walk Diabetes mellitus, type 2 Obesity Chronic anemia COPD with asthma Bipolar disorder Anxiety and depression HLD (hyperlipidemia) HTN (hypertension) Former tobacco use Neuropathy Fibromyalgia Kidney disease, chronic, stage IV (GFR 15-29 ml/min) History of tobacco use History of diabetes mellitus, type II History of COPD History of bipolar disorder Benign essential hypertension History of asthma Home Medications ?Medication ?Instructions ?Recorded ?Last Taken ?Type cholecalciferol (vitamin D3) 25 5,000 unit PO DAILY CORNELL PPLEMENT 10/03/13 10/23/24 21:00 History mcg (1,000 unit) capsule (Vitamin 5,00 0 unit D3) omeprazole 20 mg capsule,delayed 20 mg PO DAILY GERD 0 08/23/14 10/23/24 21:00 History release 20 mg melatonin 5 mg capsule 10 mg PO QHS sleep 05/27/16 10/23/24 21:00 History 10 mg atorvastatin 40 mg tablet 40 mg PO QHS CHOLESTEROL 02/2110/23/24 21:00 History 40 mg sevelamer carbonate 800 mg tablet 1,600 mg PO TID food 02/04/23 10/10/24 History hydroxyzine HCl 50 mg tablet 50 mg PO Q6H PRN itching 06/29/23 10/23/24 21:00 History 50 mg acetaminophen 325 mg capsule 650 mg PO Q6H PRN pain Unknown History (Tylenol) ondansetron HCl 4 mg tablet 4 mg PO Q8H PRN PRN nausea and 07/02/23 10/10/24 History vomiting dulaglutide 0.75 mg/0.5 mL 0.75 mg subcut QWEEK inject ion 09/06/24 10/19/24 09:00 History subcutaneous pen injector 0.75 mg (Trulicity) duloxetine 30 mg capsule,delayed 30 mg PO DAILY mood 0 09/06/24 10/23/24 21:00 History release 30 mg nifedipine 90 mg tablet,extended 90 mg PO DAILY BP 10/2410/23/24 21:00 History release 90 mg pregabalin 25 mg capsule 50 mg PO QHS neuropathy 07/0 10/2410/23/24 21:00 History albuterol sulfate 90 mcg/actuation 2 puff inhalation Q 2H PRN 10/10/24 10/24/24 12:30 History aerosol inhaler shortness of breath or wheez ing 2 puff calcitriol 0.25 mcg capsule 1.5 mcg PO TUTHSA dialysis 10/10/24 10/08/24 History sucroferric oxyhydroxide 500 mg 500 mg PO TID phosphat e inhib 10/10/24 10/10/24 History chewable tablet (Velphoro) torsemide 100 mg tablet 100 mg PO TUTHSA edema 10/1010/22/24 21:00 History 100 mg fluticasone propionate 50 2 spray intranasal Q12H andie rgies 10/24/24 Unknown History mcg/actuation nasal spray,suspension cyclobenzaprine 5 mg tablet 5 mg PO TID PRN muscle spa sm #14 10/26/24 Unknown Rx tabs guaifenesin 600 mg tablet, 600 mg PO QHS mucus 5 Unknown History extended release 12 hr (Mucinex) Allergy/AdvReac Type Severity Reaction Status Date / Time balsam carin Allergy Unknown UNKNOWN Verified 11/01/24 06:41 mold Allergy Unknown unknown Verified 11/01/24 06:41 lisinopril Allergy unknown Verified 11/01/24 06:41 Penicillins Allergy Anaphylaxis Verified 11/01/24 06:41 tetracycline (Tetracycline) Allergy Anaphylaxis Verified 11/01/24 06:41 codeine AdvReac Abd Verified 11/01/24 06:41 cramps/diarrhea diphenhydramine HCl (From AdvReac Upset Verified 11/01/24 06:41 Benadryl) Stomach hydrocodone bitartrate (From AdvReac Abd Verified 11/01/24 06:41 Vicodin) cramps/diarrhea NSAIDS (Non-Steroidal AdvReac Unknown Verified 11/01/24 06:41 Anti-Inflamma Family History Mother Heart disease Hypertension Diabetes Kidney disease Father Diabetes Surgical History H/O cataract extraction H/O vitrectomy History of appendectomy History of cholecystectomy H/O vascular surgery H/O gastric bypass S/P cholecystectomy S/P appendectomy Social History household members: none Smoking Status: Former smoker how long ago did patient quit smoking: Quit age 24. alcohol intake: never substance use type: does not use ROS ROS Narrative negative except above Physical Exam Narrative Alert awake oriented x 3 no obvious distress no pallor no icterus no JVD s1s2 no murmurs lungs clear abdomen soft no organomegaly Lab / Micro Data 11/02/24 05:56 11/02/24 05:56 Labs: Laboratory Results - last 24 hr 11/01/24 14:30: Magnesium 2.1, Troponin T Hi Sens 4Hr 378 H* 11/01/24 16:07: POC Glucose 281 H 11/01/24 18:25: Magnesium 2.0 11/01/24 21:31: POC Glucose 97 11/01/24 22:09: Magnesium 2.2 11/01/24 22:21: POC Glucose 81 11/01/24 23:41: POC Glucose 191 H 11/02/24 02:08: Magnesium 2.1 11/02/24 05:56: WBC 6.3, RBC 2.69 L, Hgb 8.1 L, Hct 24.4 L, MCV 90.7, MCH 30.1, MCHC 33.2, RDW Std Deviation 51.4 H, RDW Coeff of Ben 15.8 H, Plt Count 125 L, MPV 10.6, Immature Gran % (Auto) 0.600, Neut % (Auto) 73.0 H, Lymph % (Auto) 16.5 L, Mcmullen % (Auto) 5.5, Eos % (Auto) 4.1, Baso % (Auto) 0.3, Absolute Neuts (auto) 4.6, Absolute Lymphs (auto) 1.04, Nucleated RBC % 0, Sodium 131 L, Potassium 4.0, Chloride 94 L, Carbon Dioxide 20.9 L, Anion Gap 17 H, BUN 54 H, C reatinine 7.40 H, Estim Creat Clear Calc 9.19 L*, Est GFR (MDRD) Non-Af 6 L, B UN/Creatinine Ratio 7.3 L, Glucose 131 H, Calcium 8.7, Magnesium 2.2 11/02/24 05:58: POC Glucose 121 H 11/02/24 09:30: Troponin T High Sens 306 H* D 11/02/24 10:15: POC Glucose 91 11/02/24 11:00: D-Dimer Quant (PE/DVT) 1.00 H*, Magnesium 2.2, Troponin T Hi Sens 2 Hr 297 H* Rhythm Strip Rhythm Strip: Sinus Rhythm Rate: 80 Imaging Radiology Impression Echocardiogram 11/01/24 17:07 Interpretation Summary Limited 2D echocardiogram. No Doppler study performed. Severe posterior and inferior hypokinesis. Generalized hypokinesis. Estimated LVEF 35%. At least stage I diastolic dysfunction. Global longitudinal strain -12.7% which is abnormal. The left atrium is mildly enlarged. Severe mitral valve annular calcification. Ordering Physician: Kun Plasencia Referring Physician: Buck Archibald Performed By: Brae Bush, COSMO, RVT
[2024-11-02 13:47] LABS: Troponin T High Sens 4 HR 310 ng/L (<=14)
[2024-11-02 14:21] LABS: Magnesium 1.9 mg/dL (1.5-2.2)
[2024-11-02] MEDS: Senna Tablet 2 TABLET PO (14:47)
[2024-11-02 19:48] LABS: Magnesium 2.0 mg/dL (1.5-2.2)
[2024-11-02] MEDS: Insulin Glargine-YFGN 100 UNIT/ML Pen 10 UNIT SC (21:01)
[2024-11-02] MEDS: MELATONIN 10 MG TABLET PO (21:02)
--- NOTE | 2024-11-02 22:23 | PCM.HOSP.N ---
Hospitalist Note Notified of c/o nausea, Sprite and saltines ineffective. No emesis. Reordered home dosing/route/frequency of ondansetron.
[2024-11-03] VITALS (17 sets, daily range): BP systolic 126–160; BP diastolic 62–92; PULSE 77–88; RESP 14–16; TEMP 36.3–36.8; O2SAT 96–100; BMI 27.1; BMI 26.4
--- NOTE | 2024-11-03 02:11 | PCM.HOSP.N ---
Hospitalist Note BS 45, will change to medium from high ISS. May need to consider de-escalating from the added lantus 10 u q HS. Also jardiance was added upon admission as well.
--- NOTE | 2024-11-03 05:19 | EKG12_ITS ---
Test Reason : AM EKG Blood Pressure : */* mmHG Vent. Rate : 78 BPM Atrial Rate : 78 BPM P-R Int : 164 ms QRS Dur : 90 ms QT Int : 416 ms P-R-T Axes : 74 97 178 degrees QTcB Int : 474 ms Normal sinus rhythm Rightward axis Low voltage QRS Non-specific ST & T wave changes Prolonged QT Abnormal ECG Confirmed by Kun Plasencia ([id number]), multimedia editor LINDA PICKETT ([id number]) on 11/04/2024 6:47:39 AM Referred By: MIGUELITO Confirmed By: Kun Plasencia
[2024-11-03] MEDS: Heparin Injection (Vial) 5,000 UNIT/ML VIAL 5000 UNIT SC ×2 (05:31→13:21)
[2024-11-03] MEDS: PureFlow B 2K Dialysis Soln 1 BAG 6 BAG PF (09:17)
[2024-11-03] MEDS: 0.9% Normal Saline 1,000 ML IV.SOLN. 1000 ML OPERA.SITE (09:17)
[2024-11-03] MEDS: Epoetin Alfa epbx 10,000 UNIT/ML 20000 UNIT IV (09:17)
--- NOTE | 2024-11-03 09:26 | NURSING ---
meds given late d/t dialysis
--- NOTE | 2024-11-03 09:43 | CASEMGMT ---
Addendum entered by Lidia Downey 11/03/24 09:55: Social Work Pt states she is active with [facility] home health for PT/OT/SN and pt would like to resume this. Discharge material requirements planning manager updated and to sent resumption referral. ALEE Guerra Original Note: Social Work Pt has services through the [employer] [employer] [facility]. SW called [facility] and CM is Lobo Ann ([phone]). SW left message for Lobo requesting return call. SW met with pt and introduced self and SW role. Pt stating she has transportation needs and meal needs. Pt also requesting a home kellie aid. SW explained that Aid services are determined by and provided by [facility] as well as home delivered meals. SW educated pt to [employer] and pt is aware of this services. SW educated pt to [employer] program and pt is aware of that as well. SW provided pt with written information regarding area Transportation programs as well as [employer] and number to call to recieve meals. DINO informed pt that when [facility] CM calls this SW back, SW will request aid services. Pt is agreeable. ALEE Guerra
--- NOTE | 2024-11-03 10:45 | CASEMGMT ---
GRACE NAIR readmission note: Index admission: 10/24-10/26: Dx: Hypoxia and fluid overload. Pt also had slightly elevated troponins during this admission which was felt to be d/t renal failure. Pt has hx COPD, asthma, CHF, bipolar, anemia, CKD-gets OP HD @ [facility] T[facility], htn, and hx DVT. Pt underwent HD while hospitalized and 4.3 liter fluid removed. See GRACE Quevedo CM, RA note 10/25. Home O2 testing completed prior to discharge and pt did not qualify for home O2. Pt dc'd home w/[facility]. Script for cyclobenzaprine PRN sent to [facility] @ discharge and pt to f/u with PCP, Dr Archibald, within 2 wks. ED visit: 10/28 for SOB. Pt received aerosal tx & SOB resolved. She was dc'd 10/29 from ED and was instructed to go to OP HD that day as per her normal schedule. Current admission: 11/01: Admitted w/near-syncope. Pt also with CP w/elevated troponin. GRACE NAIR to room to discuss readmission. Pt resting in bed, receiving HD at this time. Introduced self and role. Pt states she did get the PRN cyclobenzaprine from [facility] and has been taking her medications as prescribed since last admission. She has not missed any OP HD appts since last admission. She went to her OP HD appt on 10/29 and states was getting ready for her next OP HD appt on 11/01 and had near-syncopal episode before leaving her home. She plans to continue with OP HD TTS as previously scheduled after discharge from the hospital this admission. [facility] transports her to HD. She states she has all needed medications @ home. She states is getting low on Lyrica, but this is in the process of getting refilled. She states [facility] has been coming to see her, she wishes to resume with them @ ok and declines wanting list of other [facility] agencies. She has an appt scheduled w/[facility] for Dr Archibald tomorrow @ 1:30 PM. She states she will take care of calling them to reschedule & declines needing assistance with this. She has a neurologist appt coming up in Oct for f/u re: her sleep apnea and other neuro work-up. She states she has all needed DME and denies having any further discharge needs. Discussed importance of daily weights. She states she only checks her weight @ dialysis, as she does not have a scale @ home. However, she states [facility] is working on getting her a scale @ home so she can weigh daily. Discussed CHF zone tools and she is interested in more info on this. Will notify pt's RN. Plan: Home w/[facility]. Jovani HERNANDEZN RN CM
--- NOTE | 2024-11-03 10:45 | PN.HOSP_ITS ---
Subjective Subjective CT of the chest obtained the day prior was negative for PE. Patient underwent nuclear stress test this a.m. results pending. Patient also had a hypoglycemic episode during the evening. Objective Data Objective Data Vital Signs: Vital Signs Temp Pulse Resp BP Pulse Ox O2 Del Method 97.8 F 85 16 140/68 H 99 Room Air 11/03/24 08:15 11/03/24 10:30 11/03/24 10:30 11/03/24 10:30 11/03/24 10:30 11/03/24 10:30 Oxygen Delivery Method Room Air Weight: 81 kg Body Mass Index (BMI) 27.1 Intake & Output: Intake and Output for Last 24 Hours 11/01/24 11/02/24 11/03/24 23:59 23:59 23:59 Intake Total 500 / 740 1630 / 1630 250 / 250 Output Total 4280 / 4280 Balance 500 / 740 -2650 / -2650 250 / 250 Lab / Micro Data 11/02/24 05:56 11/02/24 05:56 Labs: Laboratory Results - last 24 hr 11/02/24 09:30: Troponin T High Sens 306 H* D 11/02/24 10:15: POC Glucose 91 11/02/24 11:00: D-Dimer Quant (PE/DVT) 1.00 H*, Magnesium 2.2, Troponin T Hi Sens 2 Hr 297 H* 11/02/24 13:00: Magnesium 1.9, Troponin T Hi Sens 4Hr 310 H* 11/02/24 17:22: POC Glucose 219 H 11/02/24 17:57: Magnesium 2.0 11/02/24 20:59: POC Glucose 132 H 11/03/24 00:04: POC Glucose 45 L 11/03/24 00:37: POC Glucose 198 H 11/03/24 05:29: POC Glucose 75 Radiography Diagnostic Testing: Radiology Impression Echocardiogram 11/01/24 17:07 Interpretation Summary Limited 2D echocardiogram. No Doppler study performed. Severe posterior and inferior hypokinesis. Generalized hypokinesis. Estimated LVEF 35%. At least stage I diastolic dysfunction. Global longitudinal strain -12.7% which is abnormal. The left atrium is mildly enlarged. Severe mitral valve annular calcification. Ordering Physician: Kun Plasencia Referring Physician: Buck Archibald Performed By: Brea Bush, RDCS, RVT Chest CTA 11/02/24 12:58 IMPRESSION: 1. No evidence of acute or chronic pulmonary embolus. Mild limitation in the lower lobes. 2. Interstitial and alveolar edema. Prgqb-xh-xeibzrgu pleural effusions with atelectasis of the lung bases. 3. Cardiac enlargement. Coronary artery atherosclerosis. Advanced aortic atherosclerosis and splanchnic vessel atherosclerosis in the upper abdomen. 4. Left hilar and subcarinal lymph nodes are mildly enlarged. These are likely reactive but nevertheless non-specific. Reading Location: [facility] Rhythm Strip Rhythm Strip: Sinus Rhythm Rate: 80 Physical Exam Narrative GENERAL: cooperative HEENT: Atraumatic; normocephalic EYES; Anicteric, Normal Conjunctiva NECK; supple, normal thyroid, RESPIRATORY: Diminished to auscultation CARDIOVASCULAR: Regular S1 S2, GI: soft, normoactive bowel sounds, : No Renal angle tenderness; EXTREMITIES: No edema, no clubbing, MUSCULOSKELETAL: no muscle wasting NEURO: Awake; no lateralizing signs. SKIN: No Rash PSYCH; Flat affect Assessment & Plan Assessment/Plan (1) CHF (congestive heart failure): PLAN: Plan Patient is a 59-year-old lady with history of end-stage renal disease on hemodialysis who presented to the emergency department with near syncopal episode and epigastric discomfort. 1. Near syncopal episode ? Patient admitted to monitored bed for continuous telemetry. Echo obtained demonstrated EF of 25 to 30%. Seen in consultation by cardiology recommendation was made to discontinue nifedipine and start patient on losartan Coreg 2. Chest pain with elevated troponin ? Echo result as reported above plans for patient to undergo subsequent evaluation with a nuclear stress test in a.m. ? 11/03/2024; scheduled to undergo nuclear stress test this a.m. CTA of the chest obtained the day prior results as below 1. No evidence of acute or chronic pulmonary embolus. Mild limitation in the lower lobes. 2. Interstitial and alveolar edema. Kjeco-fs-zbnyvhnr pleural effusions with atelectasis of the lung bases. 3. Cardiac enlargement. Coronary artery atherosclerosis. Advanced aortic atherosclerosis and splanchnic vessel atherosclerosis in the upper abdomen. 4. Left hilar and subcarinal lymph nodes are mildly enlarged. These are likely reactive but nevertheless non-specific 3. End-stage renal disease ? Patient is on dialysis on Wednesdays and Fridays consult was placed to nephrology for dialysis orders. 4. Diabetes mellitus type 2 with complications including diabetic nephropathy ? Discontinue patient home regimen in addition to Accu-Cheks AC and at bedtime with sliding scale coverage 5. GERD ? On PPI 6.Cardiomyopathy with EF of 25 to 30% ? Patient has been placed on guideline directed medical therapy 7. Dyslipidemia ? Patient is on atorvastatin 8. Depression with anxiety ? Patient is on duloxetine 9. Elevated D-dimer ? CT of the chest ordered to rule out PE 10. DVT prophylaxis ? Subcu Time spent in the patient's overall evaluation,decision-making process, review of diagnostic data, adjustment of management, discussion with other providers, nursing nursing and ancillary staff involved in patient's care documentation, 38 Minutes Charges/Coding Visit Charges Inpatient E&M: 73848 [facility] Hosp L2
--- NOTE | 2024-11-03 11:03 | CASEMGMT ---
Discharge Planning HH resumption sent to [facility]. Elenita Peoples DC Planning Asst.
[2024-11-03 11:35] LABS: AST(SGOT) 21 U/L (<=31); Alanine Aminotransfer ALT/SGPT 13 U/L (<=34); Albumin, Serum 3.1 g/dL (3.5-5.0); Alkaline Phosphatase 56 U/L (35-104); Anion Gap 12 (5-15); BUN 21 mg/dL (4-19); BUN/Creat Ratio 6.7 RATIO (10-20); Calcium,Total 8.9 mg/dL (7.6-11.0); Carbon Dioxide 22.7 mmol/L (21.0-32.0); Chloride 97 mmol/L (98-108); Estimated Creatinine Clearance 21.61 ml/min (50-250); Globulin 2.0 g/dL (2.2-4.2); Glucose 196 mg/dL (70-99); Potassium 3.1 mmol/L (3.3-5.1)
--- NOTE | 2024-11-03 12:06 | STRESSREP_ITS ---
Stress Test Report Date: 11/03/2024 Procedure: Pharmacologic stress nuclear imaging study Indications: Elevated troponin Consent: Per the patient Procedure: The patient underwent pharmacologic (Regadenoson) evaluation with a peak heart rate of 85 beats per minute (52%predicted maximal heart rate) and a peak blood pressure of 110/70 mmHg. The baseline ECG demonstrated normal sinus rhythm, nonspecific ST-T changes. EKG during lexiscan infusion revealed no significant change from baseline. EKG post infusion revealed no significant change from baseline. [There were no cardiac dysrhythmias pretest, during pharmacologic infusion, or recovery]. [There was no complaint of chest discomfort during pharmacologic infusion or recovery]. The examination was discontinued secondary to completion of protocol. Impression: 1. Lexiscan stress test test is negative for Lexiscan infusion induced EKG changes of ischemia. 2. Lexiscan stress test test is negative for Lexiscan infusion induced chest pain. 3. Results of the nuclear portion of the test is as below Myocardial perfusion imaging study: Technique: The patient was injected with 11.9 millicuries of technetium 99m Cardiolite and subsequently rest SPECT Cardiolite nuclear imaging was obtained in the horizontal long, vertical long, and short axis views. The patient underwent phar macologic [Regadenoson 0.4mg] evaluation. Please see above for details. The patient was injected with 34.7 millicuries of technetium 99m Cardiolite and subsequently stress SPECT Cardiolite nuclear imaging was obtained in the horizontal long, vertical long, and short axis views. A gated Cardiolite study at peak stress was obtained. Interpretation: Rest and stress SPECT Cardiolite nuclear imaging status post realignment, normalization, and attenuation correction demonstrate moderate to severe fixed defect involving the inferior wall and lateral wall. No significant reversibility suggestive of ischemia. Gated images reveal severe hypokinesis of the inferior wall and lateral wall. Moderate hypokinesis of the rest of the myocardium. The reported LVEF is 31%. Impression: 1. There is no evidence of significant ischemia. Possible prior inferior and lateral myocardial infarction. 2. Estimated ejection fraction is 31%. This note was generated with [employer] software. It may contain incorrect words, spelling, and punctuation that were not noted in checking the note before signing.
[2024-11-03] MEDS: Senna Tablet 2 TABLET PO (13:19)
[2024-11-03] MEDS: SEVELAMER CARBONATE 800 MG TABLET 1600 MG PO (13:22)
--- NOTE | 2024-11-03 14:31 | PCM.PN.REN ---
Subjective Subjective Feels better overall. Dialysis this morning, went okay. Breathing is back to normal. Not much peripheral edema. Objective Data Objective Data Vital Signs: Vital Signs Temp Pulse Resp BP Pulse Ox O2 Del Method 98.2 F 88 16 141/70 H 99 Room Air 11/03/24 13:11 11/03/24 13:11 11/03/24 13:11 11/03/24 13:11 11/03/24 13:11 11/03/24 13:33 Oxygen Delivery Method Room Air Weight: 79 kg Body Mass Index (BMI) 26.4 Intake & Output: Intake and Output for Last 24 Hours 11/01/24 11/02/24 11/03/24 23:59 23:59 23:59 Intake Total 500 / 740 1630 / 1630 1050 / 1050 Output Total 4280 / 4280 1989 / 1989 Balance 500 / 740 -2650 / -2650 -940 / -940 Lab / Micro Data 11/02/24 05:56 11/03/24 10:44 Labs: Laboratory Results - last 24 hr 11/02/24 09:30: Troponin T High Sens 306 H* D 11/02/24 17:22: POC Glucose 219 H 11/02/24 17:57: Magnesium 2.0 11/02/24 20:59: POC Glucose 132 H 11/03/24 00:04: POC Glucose 45 L 11/03/24 00:37: POC Glucose 198 H 11/03/24 05:29: POC Glucose 75 11/03/24 10:44: Sodium 132 L, Potassium 3.1 L, Chloride 97 L, Carbon Dioxide 22.7, Anion Gap 12, BUN 21 H, Creatinine 3.13 H, Estim Creat Clear Calc 21.61 L, Est GFR (MDRD) Non-Af 17 L, BUN/Creatinine Ratio 6.7 L, Glucose 196 H, Calcium 8.9, Total Bilirubin 0.50, AST 21, ALT 13, Alkaline Phosphatase 56, Total Protein 5.0 L, Albumin 3.1 L, Globulin 2.0 L, Albumin/Globulin Ratio 1.6 Rhythm Strip Rhythm Strip: Sinus Rhythm Rate: 80 Physical Exam Narrative Alert awake oriented x 3 no obvious distress no pallor no icterus no JVD s1s2 no murmurs lungs clear abdomen soft no organomegaly Assessment & Plan Assessment/Plan (1) ESRD (end stage renal disease) on dialysis: PLAN: On dialysis Thursday, , Thursday schedule. Dialysis today, see orders/flowsheets. Feels okay. Breathing is back to baseline. Not much peripheral edema. Stress test results pending.
--- NOTE | 2024-11-03 15:58 | PCM.DC.SUM ---
Providers Date of Admission: 11/01/24 Date of Discharge: 11/03/24 Primary Care Physician: Dr. Aki Archibald MD Consultations 11/01/24 13:29 Consult: Cardiology Routine Consulting Provider: Kun Plasencia Reason for Consult: Reduced EF EMERGENT Consult: No Notified: Yes Date Notified: 11/01/24 Time Notified: 13:02 Method of Notification: ED Physician Initiated Consult: Nephrology Routine Consulting Provider: Sofía Hill Reason for Consult: Dialysis EMERGENT Consult: No Notified: Yes Date Notified: 11/01/24 Time Notified: 13:02 Method of Notification: Verbal Reason For Visit: SYNCOPE Diagnosis Discharge Diagnosis (1) ESRD (end stage renal disease) on dialysis: Status: Inactive Code(s): N18.6 - End stage renal disease; Z99.2 - Dependence on renal dialysis Plan Patient is a 59-year-old lady with history of end-stage renal disease on hemodialysis who presented to the emergency department with near syncopal episode and epigastric discomfort. 1. Near syncopal episode ? Patient admitted to monitored bed for continuous telemetry. Echo obtained demonstrated EF of 25 to 30%. Seen in consultation by cardiology recommendation was made to discontinue nifedipine and start patient on losartan Coreg 2. Chest pain with elevated troponin ? Echo result as reported above plans for patient to undergo subsequent evaluation with a nuclear stress test in a.m. ? 11/03/2024; scheduled to undergo nuclear stress test this a.m. CTA of the chest obtained the day prior results as below 1. No evidence of acute or chronic pulmonary embolus. Mild limitation in the lower lobes. 2. Interstitial and alveolar edema. Yjclc-ko-pzrijebd pleural effusions with atelectasis of the lung bases. 3. Cardiac enlargement. Coronary artery atherosclerosis. Advanced aortic atherosclerosis and splanchnic vessel atherosclerosis in the upper abdomen. 4. Left hilar and subcarinal lymph nodes are mildly enlarged. These are likely reactive but nevertheless non-specific ? Patient nuclear stress test was negative for stress-induced ischemia case discussed with cardiology decision made to discharge patient home 3. End-stage renal disease ? Patient is on dialysis on Wednesdays and Fridays consult was placed to nephrology for dialysis orders. 4. Diabetes mellitus type 2 with complications including diabetic nephropathy ? Discontinue patient home regimen in addition to Accu-Cheks AC and at bedtime with sliding scale coverage 5. GERD ? On PPI 6.Cardiomyopathy with EF of 25 to 30% ? Patient has been placed on guideline directed medical therapy ? Patient discharged on losartan and carvedilol with plans for patient to follow-up with cardiology as outpatient for titration of medication 7. Dyslipidemia ? Patient is on atorvastatin 8. Depression with anxiety ? Patient is on duloxetine 9. Elevated D-dimer ? CT of the chest ordered to rule out PE 10. DVT prophylaxis ? Subcu Time spent in the patient's overall evaluation,decision-making process, review of diagnostic data, adjustment of management, discussion with other providers, nursing nursing and ancillary staff involved in patient's care documentation, 38 Minutes Medications at Discharge Home Medications cholecalciferol (vitamin D3) 25 mcg (1,000 unit) capsule (Vitamin D3) 5,000 unit PO DAILY SUPPLEMENT 10/03/13 omeprazole 20 mg capsule,delayed release 20 mg PO DAILY GERD 08/23/14 melatonin 5 mg capsule 10 mg PO QHS sleep 05/27/16 atorvastatin 40 mg tablet 40 mg PO QHS CHOLESTEROL 09/10/22 sevelamer carbonate 800 mg tablet 1,600 mg PO TID food 02/04/23 hydroxyzine HCl 50 mg tablet 50 mg PO Q6H PRN itching 06/29/23 acetaminophen 325 mg capsule (Tylenol) 650 mg PO Q6H PRN pain 07/02/23 ondansetron HCl 4 mg tablet 4 mg PO Q8H PRN PRN nausea and vomiting 07/02/23 dulaglutide 0.75 mg/0.5 mL subcutaneous pen injector (Trulicity) 0.75 mg subcut QWEEK injection 09/06/24 duloxetine 30 mg capsule,delayed release 30 mg PO DAILY mood 09/06/24 pregabalin 25 mg capsule 50 mg PO QHS neuropathy 09/06/24 albuterol sulfate 90 mcg/actuation aerosol inhaler 2 puff inhalation Q2H PRN shortness of breath or wheezing 10/10/24 calcitriol 0.25 mcg capsule 1.5 mcg PO TUTHSA dialysis 10/10/24 sucroferric oxyhydroxide 500 mg chewable tablet (Velphoro) 500 mg PO TID phosphate inhib 10/10/24 torsemide 100 mg tablet 100 mg PO TUTHSA edema 10/10/24 fluticasone propionate 50 mcg/actuation nasal spray,suspension 2 spray intranasal Q12H allergies 10/24/24 cyclobenzaprine 5 mg tablet 5 mg PO TID PRN muscle spasm #14 tabs 10/26/24 guaifenesin 600 mg tablet, extended release 12 hr (Mucinex) 600 mg PO QHS mucus 10/26/24 carvedilol 3.125 mg tablet 3.125 mg PO BIDCM #120 tabs 11/03/24 empagliflozin 10 mg tablet (Jardiance) 10 mg PO DAILY #60 tabs 11/03/24 losartan 50 mg tablet 50 mg PO DAILY #60 tabs 11/03/24 Physical Exam Narrative GENERAL: cooperative HEENT: Atraumatic; normocephalic EYES; Anicteric, Normal Conjunctiva NECK; supple, normal thyroid, RESPIRATORY: Diminished to auscultation CARDIOVASCULAR: Regular S1 S2, GI: soft, normoactive bowel sounds, : No Renal angle tenderness; EXTREMITIES: No edema, no clubbing, MUSCULOSKELETAL: no muscle wasting NEURO: Awake; no lateralizing signs. SKIN: No Rash PSYCH; Flat affect Weight / BMI Weight Weight: 79 kg Body Mass Index (BMI) 26.4 ABG / Lab / Microbiology Data 11/02/24 05:56 11/03/24 10:44 Laboratory: Laboratory Results - last 24 hr 11/02/24 17:22: POC Glucose 219 H 11/02/24 17:57: Magnesium 2.0 11/02/24 20:59: POC Glucose 132 H 11/03/24 00:04: POC Glucose 45 L 11/03/24 00:37: POC Glucose 198 H 11/03/24 05:29: POC Glucose 75 11/03/24 10:44: Sodium 132 L, Potassium 3.1 L, Chloride 97 L, Carbon Dioxide 22.7, Anion Gap 12, BUN 21 H, Creatinine 3.13 H, Estim Creat Clear Calc 21.61 L, Est GFR (MDRD) Non-Af 17 L, BUN/Creatinine Ratio 6.7 L, Glucose 196 H, Calcium 8.9, Total Bilirubin 0.50, AST 21, ALT 13, Alkaline Phosphatase 56, Total Protein 5.0 L, Albumin 3.1 L, Globulin 2.0 L, Albumin/Globulin Ratio 1.6 11/03/24 13:02: POC Glucose 103 D/C Instructions Discharge Activity: Return to Normal Activity Call your doctor if you observe: Fever of 101 or Higher, Shortness of breath, Fainting spells and Chest pain DC O2, CPAP, BIPAP Needs Home O2 Discharge instructions: No Meaningful Use Info Meaningful Use Meaningful Use Diagnoses (Choose all that apply): None applicable Discharge Plan Admission Admit Date/Time: 11/01/24 12:57 Attending Provider: Son Sy Primary Care Provider: Aki Archibald Consulting Providers: Kun Plasencia; Sofía Hill; Hipolito Shepard Discharge Orders/Prescriptions Prescriptions: New losartan 50 mg Tablet 50 mg PO DAILY Qty: 60 0RF carvedilol 3.125 mg Tablet 3.125 mg PO BIDCM Qty: 120 0RF Jardiance 10 mg Tablet 10 mg PO DAILY Qty: 60 0RF Continued cholecalciferol (vitamin D3) [Vitamin D3] 1,000 UNIT capsule 5,000 unit PO DAILY omeprazole 20 MG capsule 20 mg PO DAILY melatonin 5 MG capsule 10 mg PO QHS atorvastatin 40 mg tablet 40 mg PO QHS sevelamer carbonate 800 mg tablet 1,600 mg PO TID acetaminophen [Tylenol] 325 mg capsule 650 mg PO Q6H PRN (Reason: pain ) ondansetron HCl 4 mg tablet 4 mg PO Q8H PRN PRN (Reason: nausea and vomiting) hydroxyzine HCl 50 mg tablet 50 mg PO Q6H PRN (Reason: itching) duloxetine 30 mg capsule,delayed release(DR/EC) 30 mg PO DAILY pregabalin 25 mg capsule 50 mg PO QHS Trulicity 0.75 mg/0.5 mL pen injector 0.75 mg subcut QWEEK torsemide 100 mg tablet 100 mg PO TUTHSA Velphoro 500 mg tablet,chewable 500 mg PO TID calcitriol 0.25 mcg capsule 1.5 mcg PO TUTHSA Rx Instructions: 1.5 mcg orally 3XW; albuterol sulfate 90 mcg/actuation HFA aerosol inhaler 2 puff INHALATION Q2H PRN (Reason: shortness of breath or wheezing) fluticasone propionate 50 mcg/actuation spray,suspension 2 spray INTRANASAL Q12H Patient Comments: [NO ORIGINAL SIG] guaifenesin [Mucinex] 600 mg tablet extended release 12hr 600 mg PO QHS cyclobenzaprine 5 mg tablet 5 mg PO TID PRN (Reason: muscle spasm) Qty: 14 0RF Discontinued nifedipine 90 mg tablet extended release 90 mg PO DAILY Patient Comments: [NO ORIGINAL SIG] Referrals / Follow Up: Kun Plasencia MD [Med Staff - Active Staff] - Within 2 Weeks (For titration of meds) Aki Archibald MD [Primary Care Provider] - Within 1 Week Disposition Disposition (needs filled in before D/C Order can be placed): Home, Self Care Charges/Coding Visit Charges Inpatient E&M: 60194 Disch Hosp >30min
--- NOTE | 2024-11-03 16:12 | CASEMGMT ---
Addendum entered by Sylvie Beatty 11/03/24 16:19: Discharge instructions and summary sent to [facility] via [facility]. Original Note: RN JOANIE note: Discharge order is in. Call placed to [facility] and spoke w/Heather for childs check on Jardiance. Per Heather, Jardiance went through and there will be no cost to pt for this medication. Jovani BRAUN RN CM
[2024-11-03] MEDS: Potassium Chloride Oral Tablet 20 MEQ 40 MEQ PO (16:31)
--- NOTE | 2024-11-07 16:54 | CASEMGMT ---
RN CM: Call placed to pt's [facility] and identifying voicemail received. Message left requesting [employer]UP[employer]GI[employer]IST and MOW service with return phone number for this RN CM provided if additional information is needed. Robi Leyva, RN ACM
== END 2024-11-03 19:03 | disposition home health service (06) | DRG 291 ==
LOC: ED 13:06 → PCU 13:08
PROVIDERS: Admitting Provider Family Medicine; Emergency Provider Student in an Organized Health Care Education/Training Program; PCP Family Medicine; Visit Provider Internal Medicine
DX: I13.2 Hypertensive heart and chronic kidney disease with heart failure and with stage 5 chronic kidney disease, or end stage renal disease (principal); N18.6 End stage renal disease; I50.23 Acute on chronic systolic (congestive) heart failure; J90 Pleural effusion, not elsewhere classified; D63.1 Anemia in chronic kidney disease; F31.9 Bipolar disorder, unspecified; E11.65 Type 2 diabetes mellitus with hyperglycemia; I70.0 Atherosclerosis of aorta; E11.40 Type 2 diabetes mellitus with diabetic neuropathy, unspecified; Z99.2 Dependence on renal dialysis; E78.5 Hyperlipidemia, unspecified; E11.22 Type 2 diabetes mellitus with diabetic chronic kidney disease; M79.7 Fibromyalgia; I42.9 Cardiomyopathy, unspecified; K21.9 Gastro-esophageal reflux disease without esophagitis; Z79.4 Long term (current) use of insulin; E11.21 Type 2 diabetes mellitus with diabetic nephropathy; F41.8 Other specified anxiety disorders; I25.10 Atherosclerotic heart disease of native coronary artery without angina pectoris; Z87.891 Personal history of nicotine dependence; Z86.718 Personal history of other venous thrombosis and embolism; Z79.1 Long term (current) use of non-steroidal anti-inflammatories (NSAID); Z79.85 Long-term (current) use of injectable non-insulin antidiabetic drugs; Z79.891 Long term (current) use of opiate analgesic; Z83.3 Family history of diabetes mellitus; R55 Syncope and collapse; Z90.49 Acquired absence of other specified parts of digestive tract; Z98.84 Bariatric surgery status; R79.89 Other specified abnormal findings of blood chemistry
CPT/HCPCS: 36415; 71046; 71275; 78452; 80048; 80053; 81001; 82010; 82803; 82962; 83735; 84484; 85025; 85379; 90937; 93005; 93017; 93308; 97161; 97166; 99285; A9500; Q9967; A4216; G0257; J2785; Q5106

== ENCOUNTER 2024-11-29 17:52 | Emergency (ER) | payer MEDICARE, MEDICAID, SELFPAY ==
[2024-11-29 17:53] VITALS: BP 135/67; PULSE 96; RESP 18; TEMP 37.5; O2SAT 94; BMI 28.0
--- NOTE | 2024-11-29 18:31 | EX.ED.DYSGE1 ---
HPI History of Present Illness Chief Complaint: Lower Extremity Injury Narrative Narrative: 59-year-old female past medical history of end-stage renal disease on dialysis, had failed dialysis today, but is switching to Thursday so is going tomorrow, Thursday as well. She presents because of left knee pain. She states that her phone slid under the bed, and she tried to retrieve it and she slid onto the floor as well. She was unable to get up. She has prior history of remote knee surgery when she was 14 years old of patellar subluxation surgery. She presents with left knee pain and swelling. No fevers or chills. She states she has had diarrhea, and now has increased pain after taking Imodium. She states she has history of irritable bowel. She had appendectomy. She describes pain in her lower abdomen as well as the diarrhea. No exacerbating or alleviating factors. She states it feels like she is growing a new appendix. [facility] Medical History Hypertension History of DVT (deep vein thrombosis) Overweight (BMI 25.0-29.9) ESRD (end stage renal disease) on dialysis Anxiety Depression CPAP (continuous positive airway pressure) dependence COPD (chronic obstructive pulmonary disease) Anemia Hyperkalemia Osteoarthritis of right knee Fracture of fibula, right, closed Pathological fracture, right tibia, initial encounter for fracture Diabetes Dialysis patient Kidney disease GERD (gastroesophageal reflux disease) Sleep apnea Former smoker Asthma DVT (deep venous thrombosis) ESRD (end stage renal disease) on dialysis Fracture of right lower extremity Inability to walk Diabetes mellitus, type 2 Obesity Chronic anemia COPD with asthma Bipolar disorder Anxiety and depression HLD (hyperlipidemia) HTN (hypertension) Former tobacco use Neuropathy Fibromyalgia Kidney disease, chronic, stage IV (GFR 15-29 ml/min) History of tobacco use History of diabetes mellitus, type II History of COPD History of bipolar disorder Benign essential hypertension History of asthma Home Medications ?Medication ?Instructions ?Recorded ?Last Taken ?Type cholecalciferol (vitamin D3) 25 5,000 unit PO DAILY SUPPLEMENT 10/03/13 10/23/24 21:00 History mcg (1,000 unit) capsule (Vitamin 5,000 unit D3) omeprazole 20 mg capsule,delayed 20 mg PO DAILY GERD 08/23/14 10/23/24 21:00 History release 20 mg melatonin 5 mg capsule 10 mg PO QHS sleep 05/27/16 10/23/24 21:00 History 10 mg atorvastatin 40 mg tablet 40 mg PO QHS CHOLESTEROL 09/10/22 10/23/24 21:00 History 40 mg sevelamer carbonate 800 mg tablet 1,600 mg PO TID food 02/04/23 10/10/24 History hydroxyzine HCl 50 mg tablet 50 mg PO Q6H PRN itching 06/29/23 10/23/24 21:00 History 50 mg acetaminophen 325 mg capsule 650 mg PO Q6H PRN pain 07/02/23 Unknown History (Tylenol) ondansetron HCl 4 mg tablet 4 mg PO Q8H PRN PRN nausea and 07/02/23 10/10/24 History vomiting dulaglutide 0.75 mg/0.5 mL 0.75 mg subcut QWEEK injection 09/06/24 10/19/24 09:00 History subcutaneous pen injector 0.75 mg (Trulicity) duloxetine 30 mg capsule,delayed 30 mg PO DAILY mood 09/06/24 10/23/24 21:00 History release 30 mg pregabalin 25 mg capsule 50 mg PO QHS neuropathy 09/06/24 10/23/24 21:00 History albuterol sulfate 90 mcg/actuation 2 puff inhalation Q2H PRN 10/10/24 10/24/24 12:30 History aerosol inhaler shortness of breath or wheezing 2 puff calcitriol 0.25 mcg capsule 1.5 mcg PO TUTHSA dialysis 10/10/24 10/08/24 History sucroferric oxyhydroxide 500 mg 500 mg PO TID phosphate inhib 10/10/24 10/10/24 History chewable tablet (Velphoro) torsemide 100 mg tablet 100 mg PO TUTHSA edema 10/10/24 10/22/24 21:00 History 100 mg fluticasone propionate 50 2 spray intranasal Q12H allergies 10/24/24 Unknown History mcg/actuation nasal spray,suspension cyclobenzaprine 5 mg tablet 5 mg PO TID PRN muscle spasm #14 10/26/24 Unknown Rx tabs guaifenesin 600 mg tablet, 600 mg PO QHS mucus 10/26/24 Unknown History extended release 12 hr (Mucinex) carvedilol 3.125 mg tablet 3.125 mg PO BIDCM #120 tabs 11/03/24 Unknown Rx empagliflozin 10 mg tablet 10 mg PO DAILY #60 tabs 11/03/24 Unknown Rx (Jardiance) losartan 50 mg tablet 50 mg PO DAILY #60 tabs 11/03/24 Unknown Rx ciprofloxacin HCl 500 mg tablet 500 mg PO BID #20 tabs 11/29/24 Unknown Rx metronidazole 500 mg tablet 500 mg PO TID #30 tabs 11/29/24 Unknown Rx tramadol 50 mg tablet 50 mg PO Q6H PRN pain 5 days #20 11/29/24 Unknown Rx tabs Allergy/AdvReac Type Severity Reaction Status Date / Time balsam carin Allergy Unknown UNKNOWN Verified 11/01/24 06:41 mold Allergy Unknown unknown Verified 11/01/24 06:41 lisinopril Allergy unknown Verified 11/01/24 06:41 Penicillins Allergy Anaphylaxis Verified 11/01/24 06:41 tetracycline (Tetracycline) Allergy Anaphylaxis Verified 11/01/24 06:41 codeine AdvReac Abd Verified 11/01/24 06:41 cramps/diarrhea diphenhydramine HCl (From AdvReac Upset Verified 11/01/24 06:41 Benadryl) Stomach hydrocodone bitartrate (From AdvReac Abd Verified 11/01/24 06:41 Vicodin) cramps/diarrhea NSAIDS (Non-Steroidal AdvReac Unknown Verified 11/01/24 06:41 Anti-Inflamma Family History Mother Heart disease Hypertension Diabetes Kidney disease Father Diabetes Surgical History H/O cataract extraction H/O vitrectomy History of appendectomy History of cholecystectomy H/O vascular surgery H/O gastric bypass S/P cholecystectomy S/P appendectomy Social History household members: none Smoking Status: Former smoker how long ago did patient quit smoking: Quit age 24. alcohol intake: never substance use type: does not use ROS ROS ED ROS Narrative Review of systems is positive for diarrhea, lower abdominal pain bilaterally. Positive for left knee pain. Worse with movement. No fevers or chills. Previously nauseated but no vomiting. No exacerbating or alleviating factors. EXAM Physical Exam Narrative Exam Narrative: Afebrile. Vital signs noted. Nontoxic-appearing. Well-healed scar left knee. No erythema, no crepitance. No noted ecchymosis. Positive fistula left upper extremity. Abdomen is soft with diffuse tenderness to palpation in the bilateral lower quadrants. No guarding or rebound. Cardiovascular semination regular rate and rhythm. Lungs clear to auscultation bilaterally. Const Vital Signs: 11/29/24 17:53 11/29/24 19:59 11/29/24 21:00 Temperature 99.5 F H Temperature Source Oral Pulse Rate 96 91 98 Respiratory Rate 18 22 H 16 Blood Pressure 135/67 H Blood Pressure Mean 89 Pulse Ox 94 97 Oxygen Delivery Method Room Air Room Air Room Air MDM MDM MDM Narrative Medical decision making narrative: Differential diagnosis includes but not limited to colitis versus diverticulitis versus obstruction. Clinically have low suspicion for any bowel obstruction. Patient has end-stage renal disease and had dialysis today and is supposed to go for dialysis tomorrow as well, hence I do feel that CT imaging with IV contrast can be obtained regardless of what her GFR or creatinine will show as I expected to be elevated with her history of end-stage renal disease. I will have CBC drawn as well. X-rays were obtained of the left knee and 4 views and interpreted by myself to help rule out fracture versus contusion. She may have an internal derangement in the differential as well. I did obtain laboratory work and she has normal white count of 5.6 with hemoglobin stable at 10.2, platelet count slightly low at 139 which is nonspecific. BMP grossly unremarkable except for creatinine elevated at 3.87 which when compared to prior labs appears to be her baseline and is consistent with her end-stage renal disease. X-rays of the left knee show no evidence of acute fracture on my independent interpretation. I reviewed the radiology report. She does have tricompartmental arthrosis. Review of the CT of the abdomen and pelvis although ordered with contrast, IV was unusable, review of the radiology report shows uncomplicated diverticulitis of the descending colon. At this point in time, she was given her first doses of ciprofloxacin and Flagyl as she has allergies to penicillin so I do not feel that cefdinir is indicated as she has anaphylaxis. She requested analgesia for pain in both her knee and in her abdomen. She requested tramadol as she states she did not want a heavier pain medication. At this point in time as she is not febrile and she does not have leukocytosis, I feel she can be treated as an outpatient for her diverticulitis. She states she has an appointment this week with her primary care provider who can recheck her. She was told the risk of microperforation as well as abscess development, acknowledges an understanding and will follow-up with her primary care provider. Return instructions were reviewed. Disposition is discharged home in stable condition. History & Record Review Discussion w/independent historian: Patient Additional record(s) reviewed:: Prior labs Lab Data Attestation: I reviewed the patient's lab results. Labs: Laboratory Results - last 24 hr 11/29/24 11/29/24 11/29/24 19:26 19:26 20:32 WBC Cancelled 5.6 Corrected WBC Cancelled RBC Cancelled 3.35 L Hgb Cancelled 10.2 L Hct Cancelled 31.7 L MCV Cancelled 94.6 MCH Cancelled 30.4 MCHC Cancelled 32.2 RDW Std Deviation Cancelled 55.1 H RDW Coeff of Ben Cancelled 16.0 H Plt Count Cancelled 139 L MPV Cancelled 10.1 Immature Gran % (Auto) Cancelled 0.400 Neut % (Auto) Cancelled 79.5 H Lymph % (Auto) Cancelled 9.6 L [place] % (Auto) Cancelled 8.0 Eos % (Auto) Cancelled 2.1 Baso % (Auto) Cancelled 0.4 Absolute Neuts (auto) Cancelled 4.5 Absolute Lymphs (auto) Cancelled 0.54 L Total Counted Cancelled Neutrophils % (Manual) Cancelled Band Neutrophils % Cancelled Lymphocytes % (Manual) Cancelled Monocytes % (Manual) Cancelled Eosinophils % (Manual) Cancelled Basophils % (Manual) Cancelled Metamyelocytes % Cancelled Myelocytes % Cancelled Promyelocytes % Cancelled Blast Cells % Cancelled Plasma Cell % (Manual) Cancelled Other Cells % Cancelled Nucleated RBC % Cancelled 0 Nucleated RBCs/100 WBC Cancelled Differential Comment Cancelled Diff Path Review Cancelled Hypersegmented Neuts Cancelled Atypical Lymphocytes Cancelled Reactive Lymphocytes Cancelled Smudge Cells Cancelled Toxic Granulation Cancelled Toxic Vacuolation Cancelled Dohle Bodies Cancelled Mony Rods Cancelled Platelet Estimate Cancelled Plt Morphology Comment Cancelled RBC Morphology Cancelled Cancelled Polychromasia Cancelled Hypochromasia Cancelled Basophilic Stippling Cancelled Anisocytosis Cancelled Microcytosis Cancelled Macrocytosis Cancelled Spherocytes Cancelled Sickle Cells Cancelled Target Cells Cancelled Tear Drop Cells Cancelled Ovalocytes Cancelled Stomatocytes Cancelled [facility] [facility] Bodies Cancelled Kevin Cells Cancelled Bite Cells Cancelled Crenated Cell Cancelled Acanthocytes (Spur) Cancelled Rouleaux Cancelled Schistocytes Cancelled Sodium 136 Potassium 4.6 Chloride 95 L Carbon Dioxide 26.0 Anion Gap 15 BUN 20 H Creatinine 3.87 H Estim Creat Clear Calc 17.74 L Est GFR (MDRD) Non-Af 13 L BUN/Creatinine Ratio 5.1 L Glucose 168 H Calcium 8.8 Radiography Diagnostic Testing: Clinical Impression(s) from Imaging Studies Knee X-Ray 11/29/24 19:45 IMPRESSION: 1. No evidence of acute fracture or dislocation. 2. Advanced tricompartmental degenerative arthrosis. 3. Advanced peripheral atherosclerotic vascular disease. Reading Location: [facility] Abdomen/Pelvis CT 11/29/24 20:45 IMPRESSION: Acute uncomplicated descending colon diverticulitis. Asymmetric sigmoid wall thickening may reflect underdistention, but a mass cannot be excluded. Colonoscopy after resolution of acute symptoms is recommended. Moderate right and small left pleural effusions. Small pericardial effusion. Bilateral renal atrophy. Severe atherosclerosis. Spondylosis. Reading Location: [facility] Discharge Plan Triage Chief Complaint: Lower Extremity Injury Other Complaint: Abd Pain ED Provider: Raymon Mccurdy Dx/Rx/DC Orders Clinical Impression: Diverticulitis, Arthralgia of left knee Instructions: ED Arthralgia, ED Diverticulitis Prescriptions: New ciprofloxacin HCl 500 mg tablet 500 mg PO BID Qty: 20 0RF metronidazole 500 mg tablet 500 mg PO TID Qty: 30 0RF tramadol 50 mg tablet 50 mg PO Q6H PRN (Reason: pain) 5 Days Qty: 20 0RF No Action cholecalciferol (vitamin D3) [Vitamin D3] 1,000 UNIT capsule 5,000 unit PO DAILY omeprazole 20 MG capsule 20 mg PO DAILY melatonin 5 MG capsule 10 mg PO QHS atorvastatin 40 mg tablet 40 mg PO QHS sevelamer carbonate 800 mg tablet 1,600 mg PO TID acetaminophen [Tylenol] 325 mg capsule 650 mg PO Q6H PRN (Reason: pain ) ondansetron HCl 4 mg tablet 4 mg PO Q8H PRN PRN (Reason: nausea and vomiting) hydroxyzine HCl 50 mg tablet 50 mg PO Q6H PRN (Reason: itching) duloxetine 30 mg capsule,delayed release(DR/EC) 30 mg PO DAILY pregabalin 25 mg capsule 50 mg PO QHS Trulicity 0.75 mg/0.5 mL pen injector 0.75 mg subcut QWEEK torsemide 100 mg tablet 100 mg PO TUTHSA Velphoro 500 mg tablet,chewable 500 mg PO TID calcitriol 0.25 mcg capsule 1.5 mcg PO TUTHSA Rx Instructions: 1.5 mcg orally 3XW; albuterol sulfate 90 mcg/actuation HFA aerosol inhaler 2 puff INHALATION Q2H PRN (Reason: shortness of breath or wheezing) fluticasone propionate 50 mcg/actuation spray,suspension 2 spray INTRANASAL Q12H Patient Comments: [NO ORIGINAL SIG] guaifenesin [Mucinex] 600 mg tablet extended release 12hr 600 mg PO QHS cyclobenzaprine 5 mg tablet 5 mg PO TID PRN (Reason: muscle spasm) Qty: 14 0RF losartan 50 mg Tablet 50 mg PO DAILY Qty: 60 0RF carvedilol 3.125 mg Tablet 3.125 mg PO BIDCM Qty: 120 0RF Jardiance 10 mg Tablet 10 mg PO DAILY Qty: 60 0RF Primary Care Provider: Aki Archibald Referrals: Aki Archibald MD [Primary Care Provider, Medical] - [facility] appointment Activity Restrictions/Additional Instructions: Antibiotics as directed for diverticulitis. Do not drink alcohol while taking metronidazole. You will vomit. Follow-up with your primary care provider as scheduled by the end of the week. Have him check your diverticulitis. Return with fever, increased pain, new or worsening symptoms. Tramadol as needed for pain. Print Language: Lao Disposition Disposition: Home, Self Care
--- NOTE | 2024-11-29 19:45 | RAD_ITS ---
PROCEDURE: LEFT KNEE 4 OR MORE VIEWS 11/29/2024 REASON FOR EXAM: TRAUMA TECHNIQUE: Procedure Code: RADKN Modality: DX Procedure: KNEE 4 OR MORE VIEWS Laterality: Left COMPARISON: None. FINDINGS: No acute fracture or dislocation appreciated. Severe qualitative osteopenia limits detection for subtle nondisplaced fractures. There is advanced tricompartmental degenerative arthrosis with loss of joint space, subchondral sclerosis and prominent marginal osteophytosis. No significant joint effusion. No marked soft tissue swelling. Advanced peripheral atherosclerotic vascular disease. RAD/Knee 4 or More Views IMPRESSION: 1. No evidence of acute fracture or dislocation. 2. Advanced tricompartmental degenerative arthrosis. 3. Advanced peripheral atherosclerotic vascular disease. Reading Location: [id number]
[2024-11-29 19:52] LABS: Anion Gap 15 (5-15); BUN 20 mg/dL (4-19); BUN/Creat Ratio 5.1 RATIO (10-20); Calcium,Total 8.8 mg/dL (7.6-11.0); Carbon Dioxide 26.0 mmol/L (21.0-32.0); Chloride 95 mmol/L (98-108); Estimated Creatinine Clearance 17.74 ml/min (50-250); Glucose 168 mg/dL (70-99); Potassium 4.6 mmol/L (3.3-5.1)
[2024-11-29 19:59] VITALS: PULSE 91; RESP 22; O2SAT 97
[2024-11-29 20:43] LABS: Hematocrit 31.7 % (37-47); Hemoglobin 10.2 g/dL (12.0-15.0); Immature Granulocytes Count 0.020 X10^3/uL (0.0-0.0); Mean Corp Hgb Conc 32.2 g/dL (32-36); Mean Corpuscular Volume 94.6 fL (81-99); Mean Platelet Vol. 10.1 fl (6.2-12.0); NRBC Flagged by Analyzer 0 % (0-5); POSITIVE DIFFERENTIAL YES; Platelet Count 139 K/mm3 (150-450); RBC Distribution Width CV 16.0 % (11.6-14.6); RBC Distribution Width SD 55.1 fl (35.1-43.9); Red Blood Count 3.35 M/mm3 (4.2-5.4); White Blood Count 5.6 K/mm3 (4.4-11.0)
--- NOTE | 2024-11-29 20:45 | CT_ITS ---
PROCEDURE: ABDOMEN/PELVIS WITHOUT CONT 11/29/2024 REASON FOR EXAM: PAIN, DIARRHEA TECHNIQUE: Procedure Code: CTABDPEL Modality: CT Procedure: ABDOMEN/PELVIS WITHOUT CONT Noncontrast technique limits evaluation of the abdominal and pelvic viscera. Coronal and Sagittal reconstruction series were provided. One or more dose reduction techniques were used (e.g., Automated exposure control, adjustment of the mA and/or kV according to patient size, use of iterative reconstruction technique). RADIATION DOSE SUMMARY: CTDlvol: 10 mGy DLP: 573 mGycm FINDINGS: Moderate right and small left pleural effusions. Small pericardial effusion measuring up to 5 mm in thickness. Small fat containing umbilical hernia. Degenerative changes of the spine most pronounced at L2-3 and L3-4. Severe atherosclerosis. The liver is unremarkable. Surgically absent gallbladder. The pancreas is unremarkable. The spleen is unremarkable. The adrenals are unremarkable. Bilateral renal atrophy. No hydroureteronephrosis. The urinary bladder is unremarkable. Colonic diverticulosis. In the region of the distal descending colon there is fat stranding adjacent to a distal descending colon diverticulum compatible with acute uncomplicated diverticulitis. Additional segment of asymmetric sigmoid colon wall thickening which may be due to underdistention but a mass can not be excluded. Colonoscopy after resolution of symptoms is recommended. (Series 2, image 138 of 201). CT/Abdomen/Pelvis without Cont IMPRESSION: Acute uncomplicated descending colon diverticulitis. Asymmetric sigmoid wall thickening may reflect underdistention, but a mass sobia ot be excluded. Colonoscopy after resolution of acute symptoms is recommended. Moderate right and small left pleural effusions. Small pericardial effusion. Bilateral renal atrophy. Severe atherosclerosis. Spondylosis. Reading Location: [id number]
[2024-11-29 21:00] VITALS: PULSE 98; RESP 16
[2024-11-29 22:16] VITALS: BP 135/67; PULSE 98; RESP 16; TEMP 37.5; O2SAT 97
== END 2024-11-29 22:30 | disposition home or self-care (01) ==
PROVIDERS: Emergency Provider Emergency Medicine; PCP Family Medicine; Visit Provider Emergency Medicine
DX: M25.562 Pain in left knee (principal); N18.6 End stage renal disease; I12.0 Hypertensive chronic kidney disease with stage 5 chronic kidney disease or end stage renal disease; J44.9 Chronic obstructive pulmonary disease, unspecified; E11.40 Type 2 diabetes mellitus with diabetic neuropathy, unspecified; E11.22 Type 2 diabetes mellitus with diabetic chronic kidney disease; K57.32 Diverticulitis of large intestine without perforation or abscess without bleeding; E78.5 Hyperlipidemia, unspecified; Z87.891 Personal history of nicotine dependence; Z99.2 Dependence on renal dialysis
CPT/HCPCS: 73564; 74176; 80048; 85025; 99285; A4216